=== PATIENT | female | born 1950 | race Caucasian/White ===

== ENCOUNTER 2022-11-14 13:28 | Outpatient (OUT) | payer MEDICARE, OTHER, SELFPAY | END 2022-11-14 13:29 | LOC: WC 13:29 | PROVIDERS: PCP Family Medicine; Visit Provider Physician Assistant | DX: L97.912 Non-pressure chronic ulcer of unspecified part of right lower leg with fat layer exposed (principal); L97.822 Non-pressure chronic ulcer of other part of left lower leg with fat layer exposed | CPT/HCPCS: 99213; G0463 ==

== ENCOUNTER 2022-11-16 08:40 | Day surgery (SDC) | payer MEDICARE, OTHER, SELFPAY ==
--- NOTE | 2022-11-16 08:48 | FL_ITS ---
[address] [address] Patient Name: TIGIST MARCIAL MRN: [id number] date: 1950 Sex: F Assigned Patient Location: [place] Current Patient Location: Accession/Order Number: [id number] Exam Date: 11/16/2022 09:30 Report Date: 11/16/2022 11:11 At the request of: AVE MEHTA Procedure: FL hip inj LT EXAMINATION: FL hip inj LT HISTORY: L HIP PAIN COMPARISON: No relevant comparison available. TECHNIQUE: An arthrogram was performed under fluoroscopic guidance using non-ionic contrast material in the usual sterile manner after obtaining informed consent. Standard level fluoroscopic mode of operation utilized. FINDINGS: JOINT: Left hip NEEDLE: 25 gauge, 4.5 spinal needle. MEDICATION: 2 mL buffered 1% lidocaine for subcutaneous anesthesia. 2 mL Omnipaque-300 iodinated contrast to visualize the joint space. 40 mg Kenalog, 2 mL 0.5% bupivacaine, 3 mL Omnipaque 300 injected into the joint space. TECHNIQUE: Anterior approach with prior localization of the femoral artery. A single stick was successful in gaining access to the joint space. CLINICAL: Improvement of joint pain post injection. COMPLICATIONS: None. OTHER: Negative. IMPRESSION: 1. Successful left hip injection with slight intermediate improvement of left hip pain following injection. Electronically authenticated by: MARINO FERNANDEZ Date: 11/16/2022 11:11
[2022-11-16 09:00] VITALS: BMI 209250.4
--- NOTE | 2022-11-16 10:58 | PC.NURSE ---
Unable to use patient for consent for procedure. Sister Ellen Bro called and consent obtained by phone.
[2022-11-16] MEDS: LIDOCAINE HCL 10 ML, SODIUM BICARBONATE 1 MEQ INJ (11:05)
[2022-11-16] MEDS: TRIAMCINOLONE ACETONIDE 40 MG/ML VIAL INJ (11:06)
[2022-11-16] MEDS: BUPIVACAINE HCL 0.25% PF 25 MG/10 ML VIAL 2 ML INJ (11:06)
== END 2022-11-16 10:15 | disposition home or self-care (01) ==
LOC: FL 08:42
PROVIDERS: Radiology Diagnostic Radiology; PCP Family Medicine; Visit Provider Family Medicine
DX: M25.552 Pain in left hip (principal)
CPT/HCPCS: 20610; 77002; Q9967

== ENCOUNTER 2022-12-12 10:12 | Outpatient (OUT) | payer MEDICARE, OTHER, SELFPAY ==
--- NOTE | 2022-12-12 12:03 | P.CN_ITS ---
Consult Note: HPI Data of Consult Patient: new to practice Consult date: 12/12/22 Requesting Physician: Kelsi Bradford MD Primary Care Provider: Benjamín Navarrete MD Consult Narrative Reason for consult: low back, bilateral lower extremity pain Narrative: this is a pleasant 72-year-old female who presents for evaluation. She has increasing pain thhroughout her low back that radiates into the bilateral lower extremities. This pain as been ongoing for several years, but continues to worsen. She has difficulty ambulating. She is currently at a care facility and is taking several medications, including Percocet, tramadol, baclofen, tizanidine, and Klonopin. There is nno recent lumbar spine imaging available for review. She undergoes therapy type exercises at her care facility, but these did not provide relief of her pain. She otherwise denies adverse medication side effects or loss of bowel or bladder control. cc:: CC: Kelsi Bradford MD Review of Systems ROS0 Status of ROS 10 or more systems reviewed and unremarkable except as noted in history and below [facility] Medical History Surgical History Meds Home Medications and Allergies Home Medications Medication Instructions Recorded Confirmed Type apixaban 5 mg tablet (Eliquis) 5 mg PO BID 11/15/22 12/12/22 History aspirin 81 mg capsule 81 mg PO DAILY 11/15/22 12/12/22 History atorvastatin 10 mg tablet 10 mg PO DAILY 11/15/22 12/12/22 History baclofen 10 mg tablet 10 mg PO DAILY 11/15/22 12/12/22 History bupropion HCl 150 mg 24 hr tablet, 150 mg PO DAILY 11/15/22 12/12/22 History extended release carvedilol 25 mg tablet (Coreg) 25 mg PO BID 11/15/22 12/12/22 History clonazepam 0.5 mg tablet 0.5 mg PO BID 11/15/22 12/12/22 History dapagliflozin 10 mg tablet 10 mg PO DAILY 11/15/22 12/12/22 History (Farxiga) escitalopram oxalate 10 mg tablet 10 mg PO DAILY 11/15/22 12/12/22 History (Lexapro) ferrous sulfate 325 mg (65 mg 325 mg PO DAILY 11/15/22 12/12/22 History iron) tablet (Feosol) furosemide 40 mg tablet 40 mg PO DAILY 11/15/22 12/12/22 History lamotrigine 150 mg tablet 150 mg PO DAILY 11/15/22 12/12/22 History losartan 25 mg tablet 25 mg PO DAILY 11/15/22 12/12/22 History multivitamin with iron 1 tab PO DAILY 11/15/22 12/12/22 History olanzapine 10 mg tablet 10 mg PO QPM 11/15/22 12/12/22 History pantoprazole 40 mg tablet,delayed 40 mg PO DAILY 11/15/22 12/12/22 History release polyethylene glycol 3350 17 gram 17 g PO DAILY laxative 11/15/22 12/12/22 History oral powder packet (Miralax) potassium chloride 10 mEq 10 meq PO BID 11/15/22 12/12/22 History tablet,extended release prostat max 30 ml PO DAILY 11/15/22 12/12/22 History spironolactone 25 mg tablet 25 mg PO DAILY 11/15/22 12/12/22 History tamsulosin 0.4 mg capsule 0.4 mg PO DAILY 11/15/22 12/12/22 History tizanidine 8 mg PO BEDTIME 11/15/22 12/12/22 History baclofen 20 mg tablet 20 mg PO DAILY 11/16/22 12/12/22 History clonazepam 0.5 mg PO BEDTIME 11/16/22 12/12/22 History collagenase clostridium histo. 250 1 applic topical BID 11/16/22 12/12/22 History unit/gram topical ointment (Santyl) oxycodone-acetaminophen 5 mg-325 1 tab PO Q8H PRN pain 11/16/22 12/12/22 History mg tablet dextromethorphan-guaifenesin 10 10 ml PO Q4H PRN cough 12/12/22 12/12/22 History mg-100 mg/5 mL oral liquid (Adult Tussin Cough Congestion DM) tramadol 50 mg tablet 50 mg PO TID PRN pain 12/12/22 12/12/22 History Allergies Allergy/AdvReac Type Severity Reaction Status Date / Time No Known Drug Allergies Allergy Verified 11/15/22 15:27 Exam Constitutional Common normals: no apparent distress, oriented x3 and healthy appearing Respiratory Common normals: normal respiratory effort Effort & inspection: able to speak in complete sentences Back & Pelvis Other: tenderness to palpation throughout the bilateral lumbar spine and paraspinal musculature. Pain is elicited with flexion, extension, and lateral rotation of the lumbar spine. Facet loading maneuvers are positive bilaterally. Coordination remains intact. Gait remains antalgic. Extremity Common normals: normal to inspection Neuro Common normals: oriented x3, CN's II-XII intact bilaterally and no focal motor deficits Psych Common normals: mental status grossly normal and cooperative Assessment and Plan Assessment and Plan (1) Lumbar spondylosis: (2) Sacroiliac dysfunction: Plan this is a pleasant 72-year-old female who presents for evaluation. She has persistence of pain throughout her low back that radiates into the bilateral lower extremities. At this point, I would like her to undergo an x-ray of the lumbar spine and sacrum to assure that there is no underlying fracture. She and her sister are in agreement with this plan. Medications were reviewed. I am worried that her multiple medications are causing her confusion, but she and her sister are very hesitant to stop any medications. I advised that she should scale back the Percocet from 10 mg every six hours to 5 mg every eight hours as needed. I will also have her trial a few trans-patch 5 ?g per hour, which may provide more steady relief. She is in agreement with this plan. She will follow- up after the x-rays are complete.
== END 2022-12-12 10:13 | disposition home or self-care (01) ==
LOC: PM 10:12
PROVIDERS: PCP Family Medicine; Visit Provider Anesthesiology Pain Medicine
DX: M47.816 Spondylosis without myelopathy or radiculopathy, lumbar region (principal); M53.3 Sacrococcygeal disorders, not elsewhere classified
CPT/HCPCS: 72110; G0463

== ENCOUNTER 2022-12-12 11:37 | Outpatient (OUT) | payer MEDICARE, OTHER, SELFPAY ==
--- NOTE | 2022-12-12 11:42 | XR_ITS ---
The [address] [address] Patient Name: TIGIST MARCIAL MRN: [id number] date: 1950 Sex: F Assigned Patient Location: [facility] Current Patient Location: [facility] Accession/Order Number: [id number] Exam Date: 12/12/2022 11:45 Report Date: 12/12/2022 13:08 At the request of: FILIBERTO MERCER Procedure: XR lumbar spine min 4V EXAMINATION: XR lumbar spine min 4V HISTORY: Lumbar spondylosis, sacroilical joint pain COMPARISON: XR hips bilateral with pelvis 04/14/2021, CT L-spine 01/10/2020 FINDINGS: BONES: 11 mm anterior listhesis of L4 on 5, likely secondary to bilateral pars interarticularis defects or fractures. Moderate degenerative facet arthropathy L3-4 through L5-S1. Prominent sclerosis involving the left sacral ala / sacroiliac joint. DISC SPACES: Moderate narrowing L4-5. Mild narrowing L5-S1. PARASPINOUS: Negative. No paraspinous abnormality is seen. OTHER: Negative. IMPRESSION: 1. Grade 2 anterior listhesis of L4 on 5 which is new compared to 01/10/2020 suggesting traumatic injury during the interval, since no pars defects or visible prior CT study. 2. Sclerotic appearance of the left sacral ala which may be secondary to sacroiliitis, but I suspect prior fracture of the sacrum. No appreciable abnormality on the 01/10/2020 CT, but sclerotic appearance was present on 04/14/2021. 3. Moderate degenerative disc disease L4-5. Multilevel moderate degenerative facet arthropathy. Electronically authenticated by: MARINO FERNANDEZ Date: 12/12/2022 13:08
== END 2022-12-12 11:38 | disposition home or self-care (01) ==
LOC: RAD 11:39
PROVIDERS: PCP Family Medicine; Visit Provider Anesthesiology
DX: M47.816 Spondylosis without myelopathy or radiculopathy, lumbar region (principal); M53.3 Sacrococcygeal disorders, not elsewhere classified
CPT/HCPCS: 72110

== ENCOUNTER 2022-12-19 07:41 | Outpatient (OUT) | payer MEDICARE, OTHER, SELFPAY ==
[2022-12-19 13:20] VITALS: BP 111/64; PULSE 66; RESP 20; TEMP 36.6; O2SAT 94
[2022-12-19 13:28] LABS: Calcium 9.8 mg/dL (8.5-10.1); Estimated GFR (African America 27 (>=60); Estimated GFR (Non-African Ame 23 (>=60)
[2022-12-19] MEDS: DENOSUMAB 60 MG/ML SYRINGE SUBQ (13:38)
--- NOTE | 2022-12-19 13:41 | PC.NURSE ---
Patient is here for Prolia injection, she had bloodwork done, she states she has previously received these without complication. Patient tolerated injection well and denies any complaints. Pt was discharged to the [place].
== END 2022-12-19 07:42 | disposition home or self-care (01) ==
LOC: LAB 07:42
PROVIDERS: PCP Family Medicine; Visit Provider Family Medicine
DX: M81.0 Age-related osteoporosis without current pathological fracture (principal)
CPT/HCPCS: 36415; 82310; 82565; 96372; J0897

== ENCOUNTER 2022-12-19 11:20 | Outpatient (OUT) | payer MEDICARE, OTHER, SELFPAY | END 2022-12-19 11:21 | disposition home or self-care (01) | LOC: WC 11:21 | PROVIDERS: PCP Family Medicine; Visit Provider Physician Assistant | DX: L97.912 Non-pressure chronic ulcer of unspecified part of right lower leg with fat layer exposed (principal); M81.0 Age-related osteoporosis without current pathological fracture | CPT/HCPCS: 36415; 82310; 82565; 96372; A6213; G0463; J0897 ==

== ENCOUNTER 2023-01-09 13:06 | Outpatient (OUT) | payer MEDICARE, OTHER, SELFPAY ==
--- NOTE | 2023-01-09 14:35 | P.CN_ITS ---
Consult Note: HPI Data of Consult Patient: known to practice within the last 3 years Consult date: 01/09/23 Requesting Physician: Ирина Gibson MD Primary Care Provider: Benjamín Navarrete MD Consult Narrative Reason for consult: low-back pain Narrative: this is a pleasant 72-year-old female who presents for system. She has persistence of axial low back pain that is worsened with standing and ambulation. She recently underwent lumbar imaging, which is significant for moderate facet arthropathy throughout the lower lumbar spine. She continues in a series of provider directed home exercises, which she has attempted for greater than three months. She did note some relief with her butrans patch 5 ?g per hour. She states that the Percocet is not helping much anymore. She has tried these medications for >3 months. She otherwise denies errors medication side effects or loss of bowel or bladder control. cc:: CC: Ирина Gibson MD Review of Systems ROS Status of ROS 10 or more systems reviewed and unremarkable except as noted in history and below [facility] Medical History Surgical History Meds Home Medications and Allergies Home Medications Medication Instructions Recorded Confirmed Type apixaban 5 mg tablet (Eliquis) 5 mg PO BID 11/15/22 12/12/22 History aspirin 81 mg capsule 81 mg PO DAILY 11/15/22 12/12/22 History atorvastatin 10 mg tablet 10 mg PO DAILY 11/15/22 12/12/22 History baclofen 10 mg tablet 10 mg PO DAILY 11/15/22 12/12/22 History bupropion HCl 150 mg 24 hr tablet, 150 mg PO DAILY 11/15/22 12/12/22 History extended release carvedilol 25 mg tablet (Coreg) 25 mg PO BID 11/15/22 12/12/22 History clonazepam 0.5 mg tablet 0.5 mg PO BID 11/15/22 12/12/22 History dapagliflozin propanediol 10 mg 10 mg PO DAILY 11/15/22 12/12/22 History tablet (Farxiga) escitalopram oxalate 10 mg tablet 10 mg PO DAILY 11/15/22 12/12/22 History (Lexapro) ferrous sulfate 325 mg (65 mg 325 mg PO DAILY 11/15/22 12/12/22 History iron) tablet (Feosol) furosemide 40 mg tablet 40 mg PO DAILY 11/15/22 12/12/22 History lamotrigine 150 mg tablet 150 mg PO DAILY 11/15/22 12/12/22 History losartan 25 mg tablet 25 mg PO DAILY 11/15/22 12/12/22 History multivitamin with iron 1 tab PO DAILY 11/15/22 12/12/22 History olanzapine 10 mg tablet 10 mg PO QPM 11/15/22 12/12/22 History pantoprazole 40 mg tablet,delayed 40 mg PO DAILY 11/15/22 12/12/22 History release polyethylene glycol 3350 17 gram 17 g PO DAILY laxative 11/15/22 12/12/22 History oral powder packet (Miralax) potassium chloride 10 mEq 10 meq PO BID 11/15/22 12/12/22 History tablet,extended release prostat max 30 ml PO DAILY 11/15/22 12/12/22 History spironolactone 25 mg tablet 25 mg PO DAILY 11/15/22 12/12/22 History tamsulosin 0.4 mg capsule 0.4 mg PO DAILY 11/15/22 12/12/22 History tizanidine 8 mg PO BEDTIME 11/15/22 12/12/22 History baclofen 20 mg tablet 20 mg PO DAILY 11/16/22 12/12/22 History clonazepam 0.5 mg PO BEDTIME 11/16/22 12/12/22 History collagenase clostridium histo. 250 1 applic topical BID 11/16/22 12/12/22 History unit/gram topical ointment (Santyl) oxycodone-acetaminophen 5 mg-325 1 tab PO Q8H PRN pain 11/16/22 12/12/22 History mg tablet dextromethorphan-guaifenesin 10 10 ml PO Q4H PRN cough 12/12/22 12/12/22 History mg-100 mg/5 mL oral liquid (Adult Tussin Cough Congestion DM) tramadol 50 mg tablet 50 mg PO TID PRN pain 12/12/22 12/12/22 History Allergies Allergy/AdvReac Type Severity Reaction Status Date / Time No Known Drug Allergies Allergy Verified 11/15/22 15:27 Exam Constitutional Common normals: no apparent distress, oriented x3 and healthy appearing Respiratory Common normals: normal respiratory effort Effort & inspection: able to speak in complete sentences Back & Pelvis Other: tenderness to palpation throughout the lumbar spine and paraspinal musculature. Pain is elicited with flexion, extension, and lateral rotation of the lumbar spine. Facet loading maneuvers are positive bilaterally. Coordination remains intact. Gait remains mildly antalgic. Extremity Common normals: normal to inspection Neuro Common normals: oriented x3, CN's II-XII intact bilaterally and no focal motor deficits Psych Common normals: mental status grossly normal and cooperative Assessment and Plan Assessment and Plan (1) Lumbar spondylosis: (2) Sacroiliac dysfunction: Plan this is a pleasant 72-year-old female who presents for assessment. She has failed physical and medical modalities, as listed above. Her lumbar imaging was reviewed, as noted above. Given her symptomatology and imaging findings, it is prudent to attempt diagnostic bilateral L4-L5, L5-L1 medial branch blocks under fluoroscopic guidance with the intention of proceeding to radiofrequency ablation. She is in agreement with this plan. Medications were reviewed. I will have her discontinue Percocet. We'll change her to [place] 7.5 mg 3 times a day when necessary, as well as a butrans patch 7.5 ?g per hour. She expressed understanding. She will follow-up after the procedure is completed.
== END 2023-01-09 13:07 | disposition home or self-care (01) ==
PROVIDERS: PCP Family Medicine; Visit Provider Anesthesiology
DX: M47.816 Spondylosis without myelopathy or radiculopathy, lumbar region (principal); M53.3 Sacrococcygeal disorders, not elsewhere classified
CPT/HCPCS: G0463

== ENCOUNTER 2023-01-23 11:30 | Day surgery (SDC) | payer MEDICARE, OTHER, SELFPAY ==
[2023-01-23 11:01] VITALS: BP 145/87; PULSE 63; RESP 20; TEMP 36.3; O2SAT 94
[2023-01-23] MEDS: BUPIVACAINE HCL 0.25% PF 25 MG/10 ML VIAL INJ (11:31)
[2023-01-23] MEDS: LIDOCAINE HCL 2% PF 100 MG/5 ML VIAL INJ (11:31)
--- NOTE | 2023-01-23 11:31 | W.PM.PROCNOT ---
Date of procedure: 01/23/23 Pre-op diagnosis: Lumbar spondylosis Post-op diagnosis: same as pre-op Procedure: Procedure: Bilateral L4-5, L5-S1 medial branch block Medications: Bupivacaine 0.25% 4cc The patient was seen and examined in the preoperative holding area.? An informed consent was obtained and placed on the chart.? The patient was brought to the medical procedure unit and placed in the prone position.? A timeout was completed verifying correct patient, procedure site, positioning, plan, and special equipment.? Using aseptic technique, the needle was placed at left L4. Under direct fluoroscopic visualization a Quincke-tipped spinal needle was advanced to the junction of the superior articulating process with the transverse process at the designated medial branch segment.? Preceded by negative aspiration, the above-mentioned injectate was placed in 1 mL aliquots.? The procedure was repeated at left L5, S1.? The needle was removed and insertion site was covered. The same procedure, at the same levels, was completed on the right side. The patient was taken to the postprocedural recovery area and monitored for an appropriate length of time before found suitable for discharge in the company of a responsible adult. Anesthesia: None Surgeon: Ирина Gibson Pathology: none sent Condition: stable Disposition: no change
[2023-01-23] MEDS: TRIAMCINOLONE ACETONIDE 40 MG/ML VIAL INJ (11:32)
[2023-01-23 14:44] VITALS: BP 161/70; BP 161/80; PULSE 61; PULSE 68; RESP 16; RESP 20; O2SAT 92; O2SAT 95
== END 2023-01-23 11:41 | disposition home or self-care (01) ==
LOC: SURGOUT 01-24 08:23
PROVIDERS: PCP Family Medicine; Visit Provider Anesthesiology
DX: M47.816 Spondylosis without myelopathy or radiculopathy, lumbar region (principal)
CPT/HCPCS: 64493; 64494

== ENCOUNTER 2023-01-30 11:29 | Outpatient (OUT) | payer MEDICARE, OTHER, SELFPAY | END 2023-01-30 11:30 | disposition home or self-care (01) | LOC: WC 11:30 | PROVIDERS: PCP Family Medicine; Visit Provider Physician Assistant | DX: L97.912 Non-pressure chronic ulcer of unspecified part of right lower leg with fat layer exposed (principal); L97.822 Non-pressure chronic ulcer of other part of left lower leg with fat layer exposed | CPT/HCPCS: G0463 ==

== ENCOUNTER 2023-02-09 10:00 | Outpatient (OUT) | payer MEDICARE, OTHER, SELFPAY ==
--- NOTE | 2023-02-09 10:26 | PM.CN ---
Consult Note: HPI Data of Consult Patient: known to practice within the last 3 years Requesting Physician: Josephine Devine NP Primary Care Provider: Benjamín Navarrete MD Consult Narrative Narrative: Linda Nascimento a 72 year old female presents to office for evaluation of chronic low back pain that has failed to respond well to medication therapy. The patient had significant relief of over 80%, with increased range of motion, decreased pain with provocative maneuvers, and increased ability to perform ADLs after diagnostic bilateral L4/5 L5/S1 block 1.??Sister present for today's visit. cc:: CC: Josephine Devine NP Review of Systems ROS Status of ROS 10 or more systems reviewed and unremarkable except as noted in history and below Musculoskeletal Reports: back pain and joint pain (bilateral knees) PFSH PFSH Medical History Surgical History Meds Home Medications and Allergies Home Medications Medication Instructions Recorded Confirmed Type apixaban 5 mg tablet (Eliquis) 5 mg PO BID 11/15/22 01/23/23 History aspirin 81 mg capsule 81 mg PO DAILY 11/15/22 01/23/23 History atorvastatin 10 mg tablet 10 mg PO DAILY 11/15/22 01/23/23 History baclofen 10 mg tablet 10 mg PO DAILY 11/15/22 01/23/23 History bupropion HCl 150 mg 24 hr tablet, 150 mg PO DAILY 11/15/22 01/23/23 History extended release carvedilol 25 mg tablet (Coreg) 25 mg PO BID 11/15/22 01/23/23 History clonazepam 0.5 mg tablet 0.5 mg PO BID 11/15/22 01/23/23 History dapagliflozin propanediol 10 mg 10 mg PO DAILY 11/15/22 01/23/23 History tablet (Farxiga) escitalopram oxalate 10 mg tablet 10 mg PO DAILY 11/15/22 01/23/23 History (Lexapro) ferrous sulfate 325 mg (65 mg 325 mg PO DAILY 11/15/22 01/23/23 History iron) tablet (Feosol) furosemide 40 mg tablet 40 mg PO DAILY 11/15/22 01/23/23 History lamotrigine 150 mg tablet 150 mg PO DAILY 11/15/22 01/23/23 History losartan 25 mg tablet 25 mg PO DAILY 11/15/22 01/23/23 History multivitamin with iron 1 tab PO DAILY 11/15/22 01/23/23 History olanzapine 10 mg tablet 10 mg PO QPM 11/15/22 01/23/23 History pantoprazole 40 mg tablet,delayed 40 mg PO DAILY 11/15/22 01/23/23 History release polyethylene glycol 3350 17 gram 17 g PO DAILY laxative 11/15/22 01/23/23 History oral powder packet (Miralax) potassium chloride 10 mEq 10 meq PO BID 11/15/22 01/23/23 History tablet,extended release prostat max 30 ml PO DAILY 11/15/22 01/23/23 History spironolactone 25 mg tablet 25 mg PO DAILY 11/15/22 01/23/23 History tamsulosin 0.4 mg capsule 0.4 mg PO DAILY 11/15/22 01/23/23 History tizanidine 8 mg PO BEDTIME 11/15/22 01/23/23 History baclofen 20 mg tablet 20 mg PO DAILY 11/16/22 01/23/23 History clonazepam 0.5 mg PO BEDTIME 11/16/22 01/23/23 History collagenase clostridium histo. 250 1 applic topical BID 11/16/22 01/23/23 History unit/gram topical ointment (Santyl) dextromethorphan-guaifenesin 10 10 ml PO Q4H PRN cough 12/12/22 01/23/23 History mg-100 mg/5 mL oral liquid (Adult Tussin Cough Congestion DM) tramadol 50 mg tablet 50 mg PO TID PRN pain 12/12/22 01/23/23 History buprenorphine 7.5 mcg/hour weekly 1 patch transdermal Q7D 01/10/23 01/23/23 History transdermal patch (Butrans) hydrocodone 7.5 mg-acetaminophen 1 tab PO TID 01/10/23 01/23/23 History 325 mg tablet Allergies Allergy/AdvReac Type Severity Reaction Status Date / Time No Known Drug Allergies Allergy Verified 11/15/22 15:27 Exam Constitutional Documenting provider has reviewed patient's vital signs: yes Common normals: no apparent distress, oriented x3, healthy appearing, alert and well nourished General appearance: cooperative Nutritional appearance: obese HENMT Common normals: normocephalic, hearing grossly normal bilaterally and moist oral mucous membranes Head and scalp: normocephalic Eye Common normals: PERRL Pupil: PERRL Neck & C-Spine Common normals: full ROM General: normal visual inspection Chest Common normals: inspection of chest normal Respiratory Common normals: normal respiratory effort, no retractions and no use of accessory muscles Back & Pelvis Lumbar spine/lower back: ROM limited, pain with ROM and straight leg raise negative bilaterally Other: predominately axial low back pain without radiculopathy Extremity Right lower extremity: knee joint (pain with weight bearing and ROM) Left lower extremity: knee joint (pain with weight bearing and ROM) Other: limited ROM due to size Neuro Common normals: oriented x3, CN's II-XII intact bilaterally, moves all extremities, no focal motor deficits, no sensory deficits noted and deep tendon reflexes 2+ bilaterally Sensorium/orientation: alert Gait (neuro): unable to assess gait and assistive device used other (wheelchair) Motor exam: no movement abnormalities noted and strength abnormal (weak BUE BLE 3/5) Psych Common normals: mental status grossly normal, thought process normal, cooperative, affect normal, speech normal and activity/motor behavior normal Speech: normal speech Thought process: normal thought process Results Additional Findings Additional findings: As part of providing excellent, safe, comprehensive care, the following was completed at our patient's visit: 1. A medication reconciliation and review to ensure accurate knowledge of current/active medications, including asking our patients to inform us about any [id number] medications or herbal remedies/nutritional supplements/alternative remedies. 2. A review to specifically ensure our patients have had annual screening for: elevated body mass index (BMI), tobacco use, screening for depression, and screening for unhealthy alcohol use. When screening is concerning, patients are provided with education and the specific recommendation to discuss the concerning health issue and treatment options with their primary care provider. The patient has had over 3 months of moderate to severe low back pain with functional impairment and inadequate response to conservative care including NSAIDS (unless there are contraindication such as concurrent blood thinners), multiple oral or topical pain medications, and home exercise program/physical therapy.? Patient has completed >6 weeks of guided home exercise program and/or formal physical therapy program without relief of their symptoms.? The Oswestry Disability Index was completed, and the patient scored a 38%.? The patient noted the following:?? severe pain, pain with ADLs, pain with lifting, cannot walk, pain prevents her from sitting more than a half hour, pain prevents her from standing more than 10 minutes, We discussed the risks and benefits of the procedure with the patient. ?The procedure will be completed with fluoroscopic guidance.? Assessment and Plan Assessment and Plan (1) Lumbar spondylosis: (2) Sacroiliac dysfunction: (3) Obesity: Assessment and Plan: The patient was counseled that proper dietary changes and consistent participation in a home exercise plan can lead to weight loss. Weight loss can help to improve functionality in patients with chronic pain.? (4) Bilateral knee pain: (5) Chronic anticoagulation: Plan proceed with bilateral L4/5 L5/s1 MBB #2 under fluoroscpoy working towards thermal RFA f/u after injection
== END 2023-02-09 10:01 | disposition home or self-care (01) ==
LOC: PM 10:00
PROVIDERS: PCP Family Medicine; Visit Provider Nurse Practitioner
DX: M47.816 Spondylosis without myelopathy or radiculopathy, lumbar region (principal); E66.9 Obesity, unspecified; M53.3 Sacrococcygeal disorders, not elsewhere classified; Z79.01 Long term (current) use of anticoagulants; M25.561 Pain in right knee; M25.562 Pain in left knee
CPT/HCPCS: G0463

== ENCOUNTER 2023-03-20 11:20 | Day surgery (SDC) | payer MEDICARE, OTHER, SELFPAY ==
[2023-03-20 11:53] VITALS: BP 195/89; PULSE 91; RESP 14; TEMP 36.6; O2SAT 95
[2023-03-20 12:25] VITALS: BP 204/91; PULSE 89; RESP 16; O2SAT 91
[2023-03-20] MEDS: TRIAMCINOLONE ACETONIDE 40 MG/ML VIAL INJ (12:27)
[2023-03-20] MEDS: LIDOCAINE HCL 2% PF 100 MG/5 ML VIAL INJ (12:27)
[2023-03-20] MEDS: BUPIVACAINE HCL 0.5% PF 50 MG/10 ML VIAL 4 ML INJ (12:27)
[2023-03-20 12:28] VITALS: BP 211/96; PULSE 60; RESP 18; O2SAT 97
--- NOTE | 2023-03-20 12:29 | W.PM.PROCNOT ---
Date of procedure: 03/20/23 Pre-op diagnosis: Lumbosacral spondylosis Post-op diagnosis: same as pre-op Procedure: Procedure: Bilateral L4-5, L5-S1 medial branch block Medications: Bupivacaine 0.25% 4cc The patient was seen and examined in the preoperative holding area.? An informed consent was obtained and placed on the chart.? The patient was brought to the medical procedure unit and placed in the prone position.? A timeout was completed verifying correct patient, procedure site, positioning, plan, and special equipment.? Using aseptic technique, the needle was placed at left L4. Under direct fluoroscopic visualization a Quincke-tipped spinal needle was advanced to the junction of the superior articulating process with the transverse process at the designated medial branch segment.? Preceded by negative aspiration, the above-mentioned injectate was placed in 1 mL aliquots.? The procedure was repeated at left L5, S1.? The needle was removed and insertion site was covered. The same procedure, at the same levels, was completed on the right side. The patient was taken to the postprocedural recovery area and monitored for an appropriate length of time before found suitable for discharge in the company of a responsible adult. Anesthesia: Local Surgeon: Ирина Gibson Pathology: none sent Condition: stable Disposition: no change
== END 2023-03-20 12:38 | disposition home or self-care (01) ==
PROVIDERS: PCP Family Medicine; Visit Provider Anesthesiology
DX: M47.816 Spondylosis without myelopathy or radiculopathy, lumbar region (principal)
CPT/HCPCS: 64493; 64494

== ENCOUNTER 2023-03-29 10:24 | Outpatient (OUT) | payer MEDICARE, OTHER, SELFPAY ==
--- NOTE | 2023-03-29 10:43 | PM.CN ---
Consult Note: HPI Data of Consult Patient: known to practice within the last 3 years Requesting Physician: Josephine Devine NP Primary Care Provider: Benjamín Navarrete MD Consult Narrative Narrative: Linda Nascimento a 72 year old female presents to office for evaluation of chronic low back pain that has failed to respond well to medication therapy. The patient had 0% pain relief after L4-5 L5-s1 MBB #2.??Sister present for today's visit. cc:: CC: Josephine Devine NP Review of Systems ROS Status of ROS 10 or more systems reviewed and unremarkable except as noted in history and below Musculoskeletal Reports: back pain PFSH PFSH Medical History Anemia ?D64.9 - Anemia, unspecified (ICD-10) Arthritis ?M19.90 - Unspecified osteoarthritis, unspecified site (ICD-10) Bipolar 1 disorder, manic, mild ?F31.11 - Bipolar disorder, current episode manic without psychotic features, mild (ICD-10) CKD (chronic kidney disease) stage 2, GFR 60-89 ml/min ?N18.2 - Chronic kidney disease, stage 2 (mild) (ICD-10) GERD (gastroesophageal reflux disease) ?K21.9 - Gastro-esophageal reflux disease without esophagitis (ICD-10) Hematoma of lower leg ?S80.10XA - Contusion of unspecified lower leg, initial encounter (ICD-10) HTN (hypertension) ?I10 - Essential (primary) hypertension (ICD-10) Myocardial infarction ?I21.9 - Acute myocardial infarction, unspecified (ICD-10) Normal colonoscopy Pacemaker ?Z95.0 - Presence of cardiac pacemaker (ICD-10) Paroxysmal A-fib ?I48.0 - Paroxysmal atrial fibrillation (ICD-10) Sarcoidosis ?D86.9 - Sarcoidosis, unspecified (ICD-10) Seizures ?R56.9 - Unspecified convulsions (ICD-10) Shock therapy as the cause of abnormal reaction of patient or of later complication without misadventure at time of procedure ?Y84.3 - Shock therapy as the cause of abnormal reaction of the patient, or of later complication, without mention of misadventure at the time of the procedure (ICD-10) Vitamin D deficiency ?E55.9 - Vitamin D deficiency, unspecified (ICD-10) Surgical History H/O exploratory laparotomy ?Z98.890 - Other specified postprocedural states (ICD-10) Hx of tonsillectomy ?Z90.89 - Acquired absence of other organs (ICD-10) Meds Home Medications and Allergies Home Medications Medication Instructions Recorded Confirmed Type apixaban 5 mg tablet (Eliquis) 5 mg PO BID 11/15/22 03/20/23 History aspirin 81 mg capsule 81 mg PO DAILY 11/15/22 03/20/23 History atorvastatin 10 mg tablet 10 mg PO DAILY 11/15/22 01/23/23 History baclofen 10 mg tablet 10 mg PO DAILY 11/15/22 03/20/23 History bupropion HCl 150 mg 24 hr tablet, 150 mg PO DAILY 11/15/22 03/20/23 History extended release carvedilol 25 mg tablet (Coreg) 25 mg PO BID 11/15/22 03/20/23 History clonazepam 0.5 mg tablet 0.5 mg PO BID 11/15/22 03/20/23 History dapagliflozin propanediol 10 mg 10 mg PO DAILY 11/15/22 03/20/23 History tablet (Farxiga) escitalopram oxalate 10 mg tablet 10 mg PO DAILY 11/15/22 03/20/23 History (Lexapro) ferrous sulfate 325 mg (65 mg 325 mg PO DAILY 11/15/22 03/20/23 History iron) tablet (Feosol) furosemide 40 mg tablet 40 mg PO DAILY 11/15/22 03/20/23 History lamotrigine 150 mg tablet 150 mg PO DAILY 11/15/22 03/20/23 History losartan 25 mg tablet 25 mg PO DAILY 11/15/22 03/20/23 History multivitamin with iron 1 tab PO DAILY 11/15/22 03/20/23 History olanzapine 10 mg tablet 10 mg PO QPM 11/15/22 03/20/23 History pantoprazole 40 mg tablet,delayed 40 mg PO DAILY 11/15/22 03/20/23 History release polyethylene glycol 3350 17 gram 17 g PO DAILY laxative 11/15/22 03/20/23 History oral powder packet (Miralax) potassium chloride 10 mEq 10 meq PO BID 11/15/22 03/20/23 History tablet,extended release prostat max 30 ml PO DAILY 11/15/22 03/20/23 History spironolactone 25 mg tablet 25 mg PO DAILY 11/15/22 03/20/23 History tamsulosin 0.4 mg capsule 0.4 mg PO DAILY 11/15/22 03/20/23 History tizanidine 8 mg PO BEDTIME 11/15/22 03/20/23 History baclofen 20 mg tablet 20 mg PO DAILY 11/16/22 03/20/23 History clonazepam 0.5 mg PO BEDTIME 11/16/22 03/20/23 History collagenase clostridium histo. 250 1 applic topical BID 11/16/22 01/23/23 History unit/gram topical ointment (Santyl) dextromethorphan-guaifenesin 10 10 ml PO Q4H PRN cough 12/12/22 03/20/23 History mg-100 mg/5 mL oral liquid (Adult Tussin Cough Congestion DM) tramadol 50 mg tablet 50 mg PO TID PRN pain 12/12/22 03/20/23 History buprenorphine 7.5 mcg/hour weekly 1 patch transdermal Q7D 01/10/23 01/23/23 History transdermal patch (Butrans) hydrocodone 7.5 mg-acetaminophen 1 tab PO TID 01/10/23 03/20/23 History 325 mg tablet Allergies Allergy/AdvReac Type Severity Reaction Status Date / Time No Known Drug Allergies Allergy Verified 11/15/22 15:27 Exam Constitutional Documenting provider has reviewed patient's vital signs: yes Common normals: no apparent distress, oriented x3, healthy appearing, alert and well nourished General appearance: cooperative Nutritional appearance: obese HENMT Common normals: normocephalic, hearing grossly normal bilaterally and moist oral mucous membranes Head and scalp: normocephalic Eye Common normals: PERRL Pupil: PERRL Neck & C-Spine Common normals: full ROM General: normal visual inspection Chest Common normals: inspection of chest normal Respiratory Common normals: normal respiratory effort, no retractions and no use of accessory muscles Back & Pelvis Lumbar spine/lower back: ROM limited, pain with ROM and straight leg raise positive left Other: predominately axial low back pain with radculopathy to left leg Extremity Right lower extremity: knee joint (pain with weight bearing and ROM) Left lower extremity: knee joint (pain with weight bearing and ROM) Other: limited ROM due to size Neuro Common normals: oriented x3, CN's II-XII intact bilaterally, moves all extremities, no focal motor deficits, no sensory deficits noted and deep tendon reflexes 2+ bilaterally Sensorium/orientation: alert Gait (neuro): unable to assess gait and assistive device used other (wheelchair) Motor exam: no movement abnormalities noted and strength abnormal (weak BUE BLE 3/5) Psych Common normals: mental status grossly normal, thought process normal, cooperative, affect normal, speech normal and activity/motor behavior normal Speech: normal speech Thought process: normal thought process Assessment and Plan Assessment and Plan (1) Lumbar spondylosis: (2) Sacroiliac dysfunction: (3) Obesity: (4) Bilateral knee pain: (5) Chronic anticoagulation: Plan declining additional injection therapy, consider advanced imaging in the future continue medication management through PCP f/u PRN
== END 2023-03-29 10:25 | disposition home or self-care (01) ==
LOC: PM 10:24
PROVIDERS: PCP Family Medicine; Visit Provider Nurse Practitioner
DX: M47.816 Spondylosis without myelopathy or radiculopathy, lumbar region (principal); M53.3 Sacrococcygeal disorders, not elsewhere classified; E66.9 Obesity, unspecified; M25.561 Pain in right knee; M25.562 Pain in left knee; Z79.01 Long term (current) use of anticoagulants
CPT/HCPCS: G0463

== ENCOUNTER 2023-10-09 15:45 | Outpatient (OUT) | payer MEDICARE, MEDICAID, SELFPAY | END 2023-10-09 15:46 | disposition home or self-care (01) | LOC: WC 15:45 | PROVIDERS: PCP Family Medicine; Visit Provider Physician Assistant | DX: I87.313 Chronic venous hypertension (idiopathic) with ulcer of bilateral lower extremity (principal); L97.822 Non-pressure chronic ulcer of other part of left lower leg with fat layer exposed; L97.812 Non-pressure chronic ulcer of other part of right lower leg with fat layer exposed | CPT/HCPCS: A6213; G0463 ==

== ENCOUNTER 2023-10-30 11:50 | Outpatient (OUT) | payer MEDICARE, MEDICAID, SELFPAY | END 2023-10-30 11:51 | disposition home or self-care (01) | LOC: WC 11:50 | PROVIDERS: PCP Family Medicine; Visit Provider Physician Assistant | DX: I87.313 Chronic venous hypertension (idiopathic) with ulcer of bilateral lower extremity (principal); L97.822 Non-pressure chronic ulcer of other part of left lower leg with fat layer exposed; L97.812 Non-pressure chronic ulcer of other part of right lower leg with fat layer exposed | CPT/HCPCS: A6213; G0463 ==

== ENCOUNTER 2023-11-20 16:36 | Outpatient (OUT) | payer MEDICARE, MEDICAID, SELFPAY | END 2023-11-20 16:37 | disposition home or self-care (01) | LOC: WC 16:36 | PROVIDERS: PCP Family Medicine; Visit Provider Physician Assistant | DX: I87.313 Chronic venous hypertension (idiopathic) with ulcer of bilateral lower extremity (principal); L97.822 Non-pressure chronic ulcer of other part of left lower leg with fat layer exposed; L97.812 Non-pressure chronic ulcer of other part of right lower leg with fat layer exposed; L97.811 Non-pressure chronic ulcer of other part of right lower leg limited to breakdown of skin | CPT/HCPCS: 11042; A6213 ==

== ENCOUNTER 2023-12-11 16:04 | Outpatient (OUT) | payer MEDICARE, MEDICAID, SELFPAY | END 2023-12-11 16:05 | disposition home or self-care (01) | LOC: WC 16:04 | PROVIDERS: PCP Family Medicine; Visit Provider Physician Assistant | DX: I87.311 Chronic venous hypertension (idiopathic) with ulcer of right lower extremity (principal); L97.822 Non-pressure chronic ulcer of other part of left lower leg with fat layer exposed | CPT/HCPCS: G0463 ==

== ENCOUNTER 2024-01-08 14:44 | Outpatient (OUT) | payer MEDICARE, MEDICAID, SELFPAY | END 2024-01-08 14:45 | disposition home or self-care (01) | LOC: WC 14:44 | PROVIDERS: PCP Family Medicine; Visit Provider Physician Assistant | DX: I87.313 Chronic venous hypertension (idiopathic) with ulcer of bilateral lower extremity (principal); L97.822 Non-pressure chronic ulcer of other part of left lower leg with fat layer exposed; L97.812 Non-pressure chronic ulcer of other part of right lower leg with fat layer exposed; L97.811 Non-pressure chronic ulcer of other part of right lower leg limited to breakdown of skin | CPT/HCPCS: G0463 ==

== ENCOUNTER 2024-01-29 14:22 | Outpatient (OUT) | payer MEDICARE, MEDICAID, SELFPAY | END 2024-01-29 14:23 | disposition home or self-care (01) | LOC: WC 14:22 | PROVIDERS: PCP Family Medicine; Visit Provider Physician Assistant | DX: I87.313 Chronic venous hypertension (idiopathic) with ulcer of bilateral lower extremity (principal); L97.822 Non-pressure chronic ulcer of other part of left lower leg with fat layer exposed; L97.812 Non-pressure chronic ulcer of other part of right lower leg with fat layer exposed; L97.811 Non-pressure chronic ulcer of other part of right lower leg limited to breakdown of skin; L97.818 Non-pressure chronic ulcer of other part of right lower leg with other specified severity | CPT/HCPCS: G0463 ==

== ENCOUNTER 2024-02-13 15:38 | Outpatient (OUT) | payer MEDICARE, MEDICAID, SELFPAY | END 2024-02-13 15:39 | disposition home or self-care (01) | LOC: WC 15:39 | PROVIDERS: PCP Family Medicine; Visit Provider Physician Assistant | DX: I87.313 Chronic venous hypertension (idiopathic) with ulcer of bilateral lower extremity (principal); L97.822 Non-pressure chronic ulcer of other part of left lower leg with fat layer exposed; L97.818 Non-pressure chronic ulcer of other part of right lower leg with other specified severity | CPT/HCPCS: G0463 ==

== ENCOUNTER 2024-03-04 13:52 | Outpatient (OUT) | payer MEDICARE, MEDICAID, SELFPAY | END 2024-03-04 13:53 | disposition home or self-care (01) | LOC: WC 13:52 | PROVIDERS: PCP Family Medicine; Visit Provider Physician Assistant | DX: I87.313 Chronic venous hypertension (idiopathic) with ulcer of bilateral lower extremity (principal); L97.822 Non-pressure chronic ulcer of other part of left lower leg with fat layer exposed; L97.818 Non-pressure chronic ulcer of other part of right lower leg with other specified severity | CPT/HCPCS: G0463 ==

== ENCOUNTER 2024-03-25 14:28 | Outpatient (OUT) | payer MEDICARE, MEDICAID, SELFPAY | END 2024-03-25 14:29 | disposition home or self-care (01) | LOC: WC 14:28 | PROVIDERS: PCP Family Medicine; Visit Provider Physician Assistant | DX: I87.313 Chronic venous hypertension (idiopathic) with ulcer of bilateral lower extremity (principal); L97.822 Non-pressure chronic ulcer of other part of left lower leg with fat layer exposed; L97.818 Non-pressure chronic ulcer of other part of right lower leg with other specified severity | CPT/HCPCS: A6213; G0463 ==

== ENCOUNTER 2024-04-02 10:37 | Outpatient (OUT) | payer MEDICARE, MEDICAID, SELFPAY ==
--- OUTSIDE RECORDS SUMMARY | 2024-04-02 10:45 | XMS_ITS | CCD ---
Author Organization [facility] Care Team Providers Care Bobtail Driver Name Role Phone ROBERTA VELA Admitting Unavailable RADHA ARROYOIR Referring Unavailable BILLY LOZADA Attending Unavailable AVE MEHTA Primary Care Unavailable Gunnar Fernandez Unavailable [place] Unavailable Emilie Perez Unavailable PROVIDER, UNKNOWN Admitting Unavailable PROVIDER, UNKNOWN Attending Unavailable Gunnar Fernandez Attending Unavailable Gunnar Fernandez Admitting Unavailable Ave Mehta Primary Care Unavailable Gunnar Fernandez Attending Unavailable Gunnar Fernandez Admitting Unavailable Ave Mehta Primary Care Unavailable Nj Ferguson Consulting Unavailable Javi Pearson Attending Unavailable Aissatou Sotelo Admitting Unavailable Ave Mehta Primary Care Unavailable Dwight Diaz II Consulting UnavailDioni Beltran Consulting Unavailable Emilie Perez Admitting Unavailable Ave Mehta Primary Care Unavailable Emilie Perez Attending Unavailable JANINE Carter, DR DORADO Primary Care Unavailable JAINNE ., DR DORADO Admitting Unavailable JANINE ., DR DORADO Consulting Unavailable JANINE ., DR DORADO Attending Unavailable JOSE ., DR CURTIS Consulting Unavailable LEÓN DIAS Consulting Unavailable AUDRA LAGOS Consulting Unavailable CARITO BULLOCK Consulting Unavailable MARE JAIMES Consulting Unavailable LEÓN DIAS Admitting Unavailable LEÓN DIAS Attending Unavailable JANINE Carter, DR DORADO Primary Care Unavailable JANINE ., DR DORADO Primary Care Unavailable SHERIE OLMOS Attending Unavailable SHERIE OLMOS Admitting Unavailable JANINE Carter, DR DORADO Primary Care Unavailable DR MARINO FERNANDEZ Consulting Unavailable HOY ., DR DORADO Primary Care Unavailable ISSA ., MIRNA Attending Unavailable ISSA ., MIRNA Admitting Unavailable ISSA ., MIRNA Consulting Unavailable FAWN MARINELLI Consulting Unavaila ble HIGHLANDER, PETER D Admitting Unavailable HIGHLANDER, PETER D Attending Unavailable HOY ., DR DORADO Primary Care Unavailable HIGHLANDER, PETER D Admitting Unavailable HIGHLANDER, PETER D Attending Unavailable HOY ., DR DORADO Primary Care Unavailable HIGHLANDER, PETER D Attending Unavailable HOY ., DR DORADO Primary Care Unavailable HIGHLANDER, PETER D Admitting Unavailable HIGHLANDER, PETER D Attending Unavailable HOY ., DR DORADO Primary Care Unavailable HIGHLANDER, PETER D Admitting Unavailable HIGHLANDER, PETER D Admitting Unavailable HOY ., DR DORADO Primary Care Unavailable HIGHLANDER, PETER D Attending Unavailable HIGHLANDER, PETER D Admitting Unavailable HOY ., DR DORADO Primary Care Unavailable HIGHLANDER, PETER D Attending Unavailable HIGHLANDER, PETER D Attending Unavailable HOY ., DR DORADO Primary Care Unavailable HIGHLANDER, PETER D Admitting Unavailable HIGHLANDER, PETER D Attending Unavailable HOY ., DR DORADO Primary Care Unavailable HIGHLANDER, PETER D Admitting Unavailable HOY ., DR DORADO Primary Care Unavailable HIGHLANDER, PETER D Admitting Unavailable HIGHLANDER, PETER D Attending Unavailable HIGHLANDER, PETER D Admitting Unavailable HIGHLANDER, PETER D Attending Unavailable HOY ., DR DORADO Primary Care Unavailable HOY ., DR DORADO Primary Care Unavailable HOY ., DR DORADO Admberenice Unavailable HOY ., DR DORADO Attending Unavailable HOY ., DR DORADO Consulting Unavailable HOY ., DR DORADO Admitting Unavailable HOY ., DR DORADO Consulting Unavailable HOY ., DR DORADO Attending Unavailable HOY ., DR DORADO Primary Care Unavailable LEONIDES, LEONIE Attending Unavailable LEONIDES, LEONIE Admitting Unavailable ZIANIRUDH, DR MARINO Braswell Consulting Unavailable HOY ., DR DORADO Primary Care Unavailable PAY ., DR DING Consulting Unavailable LOENIE COYLE Consulting Unavailable LEÓN LLAMAS Consulting Unavailable PAY ., DR DING Attending Unavailable PAY ., DR DING Consulting Unavailable HOY ., DR DORADO Primary Care Unavailable PAY ., DR DING Admitting Unavailable DUNN ., MR BETI Consulting Unavailable MADINA ACEVEDO Consulting Unavailable NGUYEN GONZALES Consulting Unavailable HIGHLANDER, PETER D Admitting Unavailable HIGHLANDER, PETER D Attending Unavailable HOY ., DR DORADO Primary Care Unavailable HOY ., DR DORADO Primary Care Unavailable CLARISSE .JAMES Attending Unavailable CLARISSE ., JAMES Admitting Unavailable HOY ., DR DORADO Primary Care Unavailable SHERIE OLMOS Attending Unavailable SHERIE OLMOS Admitting Unavailable HOY ., DR DORADO Primary Care Unavailable HOY ., DR DORADO Admitting Unavailable HOY ., DR DORADO Consulting Unavailable HOY ., DR DORADO Attending Unavailable LARISSA, LEÓN Tejada Consulting Unavailable LARISSA, PETER D Admitting Unavailable HOY ., DR DORADO Primary Care Unavailable PAOLOANDER, LEÓN Tejada Attending Unavailable AGUBOSIM, ISABEL Consulting Unavailable LONG, NEYDA Consulting Unavailable AYYAGARI ., SAMINA Consulting Unavailable ISSA ., MIRNA Attending Unavailable SEUN ., ALISON Consulting Unavailable HOY ., DR DORADO Primary Care Unavailable ISSA ., MIRNA Admitting Unavailable DAVID STOKES Consulting Unavailable SHERRY CONDON Consulting Unavailable HOY ., DR DORADO Admitting Unavailable HOY ., DR DORADO Consulting Unavailable HOY ., DR DORADO Attending Unavailable MARGO, DR BORIS Hardwick Procedure Practitioner Yun vailable JANINE ., DR DORADO Primary Care Unavailable BOLANOS ., DR IVAN Bowden Consulting Unavailable MARGO, DR BORIS Hardwick Consulting UnavailKIAN Ricci Consulting Unavailable RISHABH ART Consulting Unavailable LEÓN PETERS Consulting Unavailable HOY ., DR DORADO Primary Care Unavailable HOY ., DR DORADO Admberenice Unavailable ROSETTA, DR REYMUNDO Braswell Consulting Unavailable HOY ., DR DORADO Attending Unavailable HOY ., DR DORADO Consulting Unavailable SHAIKH Roberto NICOLAS Consulting Unavailable PAOLOANDER, PETER D Consulting Unavailable LARISSA PETER D Attending Unavailable LARISSA, LEÓN D Admitting Unavailable HOY ., DR DORADO Primary Care Unavailable HOY ., DR DORADO Primary Care Unavailable ALGHODISHA, MOHAMAMallory Attending Unavailable ALGHOTHANI, MOHAMAD Admitting Unavailable MARKEL AMBROCIO Consulting Unavailable LARISSA, PETER D Admitting Unavailable PAOLOANDER, PETER D Attending Unavailable HOY ., DR DORADO Primary Care Unavailable GARLAND, DR RISHABH Martin Consulting Unavailable PAOLOANDER, PETER D Consulting Unavailable Arthur OLIVER, Ирина Loya Attending Unavailable Gieditis , Ирина Loya Attending Unavailable Giedraitis , Ирина Loya Attending Unavailable Giedraitis MD, Ирина Loya Attending Unavailable ENOCH FRANKEL Attending Unavailable KRISTIAN MERAZ Attending Unavailable MARKEL AMBROCIO Attending Unavailable KRISTIAN MERAZ Attending Unavailable ENOCH FRANKEL Referring Unavailable Allergies Allergy Classification Reported Allergen(s) Allergy Type Date of Onset Reaction(s) Facility (1 source) house dust allergenic extract; Translations: [HOUSE DUST] Drug Allergy 4 [facility] Repository (1 source) Pollen; Translations: [POLLEN EXTRACTS] Propensity to adverse reactions to drug (disorder) 4 [facility] Rep[facility] Medications Current Medications Medication Drug Class(es) Dates Sig (Normalized) Sig (Original) acetaminophen 500 mg oral tablet (13 sources) take 2 tablets by mouth every eight hours as needed [facility] Acetaminophen [facility] 500 MG TAKE 2 TABLETS BY MOUTH EVERY 8 HOURS NEEDED for 30 Active acetaminophen 325 mg / HYDROcodone bitartrate 5 mg oral tablet (9 sources) Opioid Agonist Start: 11-03-2021 take 1 tablet by mouth every eight hours HYDROcodone-Acetam inophen 5-325 MG 1 tablet as needed Orally every 8 hrs for 7 days October, Active amLODIPine 5 mg oral tablet (13 sources) Dihydropyridine Calcium Channel Marah take 1 tablet by mouth every twenty-four hours amLODIPine Besylate 5 MG 1 tablet Orally Once a day Active aspirin 81 mg oral tablet (13 sources) Platelet Aggregation Inhibitor, Nonsteroidal Anti-inflammatory Drug take 1 tablet by mouth once daily Aspirin 81 81 MG 1 tablet Orally Once a day Active baclofen 10 mg oral tablet (6 sources) gamma-Aminobutyric Acid-ergic Agonist take 1 tablet by mouth every twelve hours Baclofen 10 MG 1 tablet as needed Orally Twice a day Active buPROPion hydrochloride 100 mg oral tablet (13 sources) Aminoketone take 1 tablet by mouth every twelve hours buPROPion HCl 100 MG 1 tablet Orally Twice a day Active busPIRone hydrochloride 15 mg oral tablet (13 sources) take 1 tablet by mouth every twelve hours busPIRone HCl 15 MG 1 tablet Orally Twice a day Active Calcium-Vitamin D 500-400 MG-UNIT (13 sources) Start: 07-20-2020 take 1 tablet by mouth once daily Calcium-Vitamin D 500-400 MG-UNIT 1 tablet with a meal Orally Once a day for 30 day(s) Jul, Active carvedilol 25 mg oral tablet (13 sources) alpha-Adrenergic Marah, beta-Adrenergic Marah take 1 tablet by mouth every twelve hours Carvedilol 25 MG 1 tablet with food Orally Twice a day Active cephalexin 500 mg oral capsule (9 sources) Cephalosporin Antibacterial Start: 11-03-2021 take 1 capsule by mouth twice daily Cephalexin 500 MG 1 capsule Orally twice daily for 14 days October, Active clonazePAM 0.5 mg oral tablet (13 sources) Benzodiazepine take 1 tablet by mouth every twenty-four hours clonazePAM 0.5 MG 1 tablet at bedtime Orally Once a day Active diclofenac sodium 75 mg delayed release oral tablet (13 sources) Nonsteroidal Anti-inflammatory Drug take 1 tablet by mouth every twelve hours Diclofenac Sodium 75 MG 1 tablet Orally Twice a day Active ferrous sulfate 325 mg oral tablet (13 sources) take 1 tablet by mouth every twenty-four hours Iron 325 (65 Fe) MG 1 tablet Orally Once a day Active gabapentin 300 mg oral capsule (10 sources) Anti-epileptic Agent Start: 10-28-2021 take 2 capsules by mouth every twelve hours Gabapentin 300 MG 2 capsule Orally BID for 30 day(s) October, Active Start: 10-28-2021 take 1 capsule by mo [facility] every twelve hours Gabapentin 300 MG 1 capsule Orally BID for 30 day(s) October, Active hydrALAZINE hydrochloride 50 mg oral tablet (13 sources) Arteriolar Vasodilator take 1 tablet by mouth every eight hours hydrALAZINE HCl 50 MG 1 tablet with food Orally Three times a day Active take [facility] tablet [facility] every eight hours hydrALAZINE HCl 25 MG 1 tablet with food Orally Three times a day Active spironolactone 50 mg oral tablet (13 sources) Aldosterone Antagonist take 1 tablet by mouth every twenty-four hours Spironolactone 50 MG 1 tablet Orally Once a day Active tiZANidine 4 mg oral tablet (13 sources) Central alpha-2 Adrenergic Agonist take 1 tablet by mouth every eight hours tiZANidine HCl 4 MG 1 tablet as needed Orally Three times a day Active traMADol hydrochloride 50 mg oral tablet (19 sources) Opioid Agonist Start: 022 take 1 tablet by mouth every four hours traMADol HCl 50 MG 1 tablet as needed Orally every 4 hours 30 Mar, 2022 Active Start: 08-26-2020 take 1 tablet by brynn th every eight hours as needed for pain traMADol HCl 100 MG 1 tablet as needed for pain Orally every 8 hours for 7 days Aug, Active Start: 07-20-2020 take 1 tablet by brynn th every six hours traMADol HCl 50 MG 1 tablet as needed Orally every 6 hours for 7 days Jul, Active Vitamin D3 (13 sources) Vitamin D3 Activ e Completed/Discontinued Medications Medication Drug Class(es) Dates Sig (Normalized) Sig (Original) triamcinolone acetonide 40 mg/ml injectable suspension (13 sources) Corticosteroid Start: 09-08-2021 Kenalog-40 Aug, 40 mg Start: 09-08-2021 Kenalog -40 mg Aug, 40 mg Problems Active Problems Problem Classification Problem Date Documented Da te Episodic/Chronic Anxiety disorders (1 source) Anxiety disorder, unspecified; Translations: [ANXIETY DISORDER UNSPECIFIED] Onset: 08-18-2022 Chronic Anxiety disorders (1 source) Anxiety disorder due to known physiological condition; Translations: [ANXIETY D/O DUE KNOWN PHYSIO COND] Onset: 08-18-2022 Episodic Cardiac dysrhythmias (4 sources) Paroxysmal atrial fibrillation; Translations: [Unspecified atrial fibrillation] Onset: 12-20-2021 Chronic Chronic kidney disease (3 sources) Chronic kidney disease, unspecified; Translations: [Chronic kidney disease, stage 2 (mild)] Onset: 11-04-2021 Chronic Chronic ulcer of skin (12 sources) Non-pressure chronic ulcer of unspecified part of right lower leg with fat layer exposed; Translations: [Non-pressure chronic ulcer of other part of left lower leg with fat layer exposed] Onset: 12-20-2021 Chronic Complications of surgical procedures or medical care (5 sources) Other complications of procedures, not elsewhere classified, initial encounter; Translations: [OTH COMPLICATIONS PROC NEC INITIAL] Onset: 03-11-2022 Episodic Conduction disorders (18 sources) Cardiac pacemaker in situ; Translations: [Presence of cardiac pacemaker] Onset: 10-07-2021 Resolved: 10-07-2021 Chronic Congestive heart failure; nonhypertensive (6 sources) Acute on chronic systolic (congestive) heart failure; Translations: [Unspecified systolic (congestive) heart failure] Onset: 04-27-2022 Chronic Deficiency and other anemia (1 source) Anemia in other chronic diseases classified elsewhere; Translations: [D63.8 - Anemia in other chronic diseases classified elsewhere] Onset: 11-04-2021 Chronic Deficiency and other anemia (1 source) Iron deficiency anemia secondary to blood loss (chronic); Translations: [IRON DEFIC ANEMIA SEC BLD LOSS CHRN] Onset: 07-27-2022 Chronic Deficiency and other anemia (1 source) Anemia in chronic kidney disease; Translations: [ANEMIA IN CHRONIC KIDNEY DISEASE] Onset: 03-31-2022 Chronic Deficiency and other anemia (2 sources) Anemia, unspecified; Translations: [D64.9 - Anemia, unspecified] Onset: 11-04-2021 Episodic Disorders of lipid metabolism (4 sources) Hyperlipidemia, unspecified; Translations: [HYPERLIPIDEMIA UNSPECIFIED] Onset: 02-11-2022 Chronic Esophageal disorders (1 source) Gastro-esophageal reflux disease without esophagitis; Translations: [GERD WITHOUT ESOPHAGITIS] Onset: 08-18-2022 Chronic Essential hypertension (2 sources) Essential (primary) hypertension; Translations: [I10 - Essential (primary) hypertension] Onset: 11-04-2021 Chronic Fluid and electrolyte disorders (5 sources) Hypo-osmolality and hyponatremia; Translations: [Hyperkalemia] Onset: 12-05-2021 Episodic Genitourinary symptoms and ill-defined conditions (2 sources) Retention of urine, unspecified; Translations: [Personal history of urinary (tract) infections] Onset: 05-11-2022 Episodic Hypertension with complications and secondary hypertension (1 source) Hypertensive chronic kidney disease with stage 1 through stage 4 chronic kidney disease, or unspecified chronic kidney disease; Translations: [HTN CKD W/STAGE 1-4 CKD/UNS CKD] Onset: 05-11-2022 Chronic Mood disorders (3 sources) Bipolar disorder, unspecified; Translations: [Major depressive disorder, single episode, unspecified] Onset: 11-04-2021 Chronic Nutritional deficiencies (1 source) Vitamin D deficiency, unspecified; Translations: [VITAMIN D DEFICIENCY UNSPECIFIED] Onset: 08-18-2022 Chronic Nutritional deficiencies (1 source) Vitamin A deficiency with conjunctival xerosis; Translations: [VITAMIN A DEFIC W/CONJUNCT XEROSIS] Onset: 08-18-2022 Episodic Osteoarthritis (18 sources) Osteoarthritis of knee; Translations: [Bilateral primary osteoarthritis of knee] Onset: 10-28-2021 Resolved: 12-23-2021 Chronic Osteoporosis (4 sources) Age-related osteoporosis without current pathological fracture; Translations: [AGE-REL OSTEOPOR W/O CURR PATH FX] Onset: 05-23-2022 Chronic Other acquired deformities (12 sources) Lumbar spondylolisthesis; Translations: [Spondylolisthesis, lumbar region] Episodic Other aftercare (1 source) Other 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 block 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 (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; Translations: [OTH PARTS RUNNER CURRENT DRUG THERAPY] Onset: 10-18-2022 Episodic Other connective tissue disease (13 sources) Trochanteric bursitis of left hip; Translations: [Trochanteric bursitis, left hip] Episodic Other connective tissue disease (4 sources) Pain in left leg; Translations: [PAIN IN LEFT LEG] Onset: 10-14-2022 Episodic Other connective tissue disease (1 source) Muscle weakness (generalized); Translations: [MUSCLE WEAKNESS GENERALIZED] Onset: 08-18-2022 Episodic Other diseases of veins and lymphatics (5 sources) Venous insufficiency (chronic) (peripheral); Translations: [VENOUS INSUFF CHRONIC PERIPHERAL] Onset: 06-09-2022 Episodic Other fractures (13 sources) Fracture of pubis; Translations: [Unspecified fracture of left pubis, subsequent encounter for fracture with delayed healing] Episodic Other nervous system disorders (13 sources) Chronic pain; Translations: [Other chronic pain] Chronic Other nervous system disorders (4 sources) Other chronic pain Onset: 10-28-2021 Resolved: 12-23-2021 Chronic Other non-traumatic joint disorders (1 source) Other specified arthritis, left knee; Translations: [OTHER SPECIFIED ARTHRITIS LEFT KNEE] Onset: 10-18-2022 Chronic Other non-traumatic joint disorders (13 sources) Knee pain; Translations: [Pain in unspecified knee] Episodic Other non-traumatic joint disorders (1 source) Effusion, left knee; Translations: [EFFUSION LEFT KNEE] Onset: 08-18-2022 Episodic Other nutritional; endocrine; and metabolic disorders (13 sources) Morbid obesity; Translations: [Morbid (severe) obesity due to excess calories] Chronic Other nutritional; endocrine; and metabolic disorders (3 sources) Morbid (severe) obesity due to excess calories; Translations: [MORBID SEVERE OBES D/T EXCESS ANJU] Onset: 09-08-2021 Resolved: 10-06-2021 Chronic Other nutritional; endocrine; and metabolic disorders (1 source) Body mass index (BMI) 45.0-49.9, adult; Translations: [BODY MASS INDEX BMI 45.0-49.9 ADULT] Onset: 03-31-2022 Chronic Spondylosis; intervertebral disc disorders; other back problems (20 sources) Solitary sacroiliitis; Translations: [Sacroiliitis, not elsewhere classified] Onset: 10-06-2021 Resolved: 12-23-2021 Chronic Substance-related disorders (1 source) Nicotine dependence, cigarettes, uncomplicated; Translations: [NICOTINE DEPEND CIGARETTES UNCOMP] Onset: 05-11-2022 Chronic Unclassified (1 source) E87.1 - Hypo-osmolality and hyponatremia; Translations: [E87.1 - Hypo-osmolality and hyponatremia] Onset: 11-04-2021 Unclassified (1 source) M25.562 - Pain in left knee; Translations: [M25.562 - Pain in left knee] Onset: 11-03-2021 Unclassified (1 source) M43.16 - Spondylolisthesis, lumbar region; Translations: [M43.16 - Spondylolisthesis, lumbar region] Onset: 10-26-2021 Unclassified (1 source) M54.50 - Low back pain, unspecified; Translations: [M54.50 - Low back pain, unspecified] Onset: 10-06-2021 Unclassified (1 source) CONTACT W/AND (SUSP) EXPOS COVID-19; Translations: [CONTACT W/AND (SUSP) EXPOS COVID-19] Onset: 05-11-2022 Unclassified (1 source) COUGH, UNSPECIFIED; Translations: [COUGH, UNSPECIFIED] Onset: 12-16-2021 Past or Other Problems Problem Classification Problem Date Documented Da te Episodic/Chronic Acute and unspecified renal failure (1 source) Acute kidney failure, unspecified; Translations: [ACUTE KIDNEY FAILURE UNSPECIFIED] Onset: 2 Episodic Acute posthemorrhagic anemia (3 sources) Acute posthemorrhagic anemia; Translations: [ACUTE POSTHEMORRHAGIC ANEMIA] Onset: 2 Episodic Deficiency and other anemia (1 source) Iron deficiency anemia, unspecified; Translations: [IRON DEFICIENCY ANEMIA UNSPECIFIED] Onset: 2 Episodic E Codes: Fall (3 sources) Unspecified fall, initial encounter; Translations: [Fall from chair, initial encounter] Onset: 2 Episodic Gastrointestinal hemorrhage (1 source) Gastrointestinal hemorrhage, unspecified; Translations: [GASTROINTESTINAL HEMORRHAGE UNS] Onset: 2 Episodic Malaise and fatigue (4 sources) Weakness; Translations: [WEAKNESS] Onset: 2 Episodic Open wounds of extremities (5 sources) Unspecified open wound, left lower leg, initial encounter; Translations: [UNS OPEN WOUND LT LOWER LEG INITIAL] Onset: 2 Episodic Other acquired deformities (1 source) Spondylolisthesis, lumbar region Onset: 2 Resolved: 2 Episodic Other aftercare (1 source) 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; Translations: [PARTS RUNNER CURRENT USE ANTIBIOTICS] Onset: 2 Episodic Other aftercare (1 source) halfway (current) use of aspirin; Translations: [MCC CURRENT USE OF ASPIRIN] Onset: 2 Episodic Other aftercare (1 source) regional intermodal truck driver (current) use of insulin; Translations: [MCC CURRENT USE OF INSULIN] Onset: 2 Episodic Other circulatory disease (1 source) Hypotension, unspecified; Translations: [HYPOTENSION UNSPECIFIED] Onset: 2 Episodic Other connective tissue disease (2 sources) Trochanteric bursitis, left hip Onset: 2 Resolved: 2 Episodic Other connective tissue disease (1 source) Pain in left lower leg; Translations: [PAIN IN LEFT LOWER LEG] Onset: 2 Episodic Other fractures (2 sources) Unspecified fracture of left pubis, subsequent encounter for fracture with delayed healing Onset: 2 Resolved: 2 Episodic Other gastrointestinal disorders (1 source) Other fecal abnormalities; Translations: [OTHER FECAL ABNORMALITIES] Onset: 2 Episodic Other injuries and conditions due to external causes (1 source) History of falling; Translations: [HISTORY OF FALLING] Onset: 2 Episodic Other non-traumatic joint disorders (1 source) Pain in unspecified hip Onset: 2 Resolved: 2 Episodic Other non-traumatic joint disorders (2 sources) Pain in left knee Onset: 2 Resolved: 2 Episodic Other nutritional; endocrine; and metabolic disorders (1 source) Overweight; Translations: [OVERWEIGHT] Onset: 2 Episodic Other screening for suspected conditions (not mental disorders or infectious disease) (1 source) Other specified abnormal findings of blood chemistry; Translations: [OTH SPEC ABNORMAL FINDINGS BLD CHEM] Onset: 2 Episodic Residual codes; unclassified (1 source) Disorientation, unspecified; Translations: [DISORIENTATION UNSPECIFIED] Onset: 2 Episodic Residual codes; unclassified (3 sources) Altered mental status, unspecified; Translations: [ALTERED MENTAL STATUS UNSPECIFIED] Onset: 2 Episodic Residual codes; unclassified (1 source) Edema, unspecified; Translations: [EDEMA UNSPECIFIED] Onset: 2 Episodic Septicemia (except in labor) (2 sources) Sepsis, unspecified organism; Translations: [Severe sepsis without septic shock] Onset: 2 Episodic Skull and face fractures (1 source) Fracture of nasal bones, initial encounter for closed fracture; Translations: [FX NASAL BONES INITIAL ENC CLOS FX] Onset: 2 Episodic Superficial injury; contusion (18 sources) Contusion of left knee, initial encounter; Translations: [Contusion of left lower leg, initial encounter] Onset: 2 Resolved: 2 Episodic Unclassified (1 source) Lumbar pain M54.50 Onset: 2 Resolved: 2 Unclassified (2 sources) Other low back pain M54.59 Onset: 2 Resolved: 2 Urinary tract infections (1 source) Urinary tract infection, site not specified; Translations: [UTI SITE NOT SPECIFIED] Onset: 2 Episodic Results Test Name Value Interpretation Reference Range Facility Office Visiton 10-31-2023 Follow-up visit [id number] Linda Nascimento 1950 F Date Provider Department Center 10/31/2023 ENOCH RAMIREZ JUAN Stock [facility] Family History Problem Relation Age of Onset Lung cancer Mother Stroke Father Family Status - Relation Status Age at Mother Father Level of Service:[id number] AR OFFICE/OUTPATIENT ESTABLISHED MOD MDM 30 MIN [facility] 36on 10-17-2023 36 Let's keep her medications the same. Thanks [facility] 36 Please ask what her current weight is. [facility] 36on 08-01-2023 36 Please confirm what her dose of lasix is. It looks like she is on 40mg daily. If this is the dose, please have her increase to 40mg BID x5 days then start a higher dose of lasix at 60mg daily. Follow-up BMP in 2 weeks. They can check her weight either every other day or 3 times a week. Thanks [facility] 36on 07-27-2023 36 Regarding note from [facility] with patient's weights and BP's and mention of fluid restriction from 07/12/2023. GERMAN Peres MA Her blood pressure looks good. Her weight looks like it trended down some. I saw the note they wrote requesting weekly weight checks. I understand that she doesn't follow a fluid restriction but that makes close follow-up of her weights even more important to make sure she is not retaining fluid rapidly so we can catch it before it becomes a big problem. I understand getting the weights can be cumbersome too. If they could check her weight 2-3 times a week, I'd be okay with that. Maybe like check it MWF? Thanks! Printed and faxed back to [facility] [place]. [facility] Office Visiton 04-12-2023 Follow-up visit [id number] Linda Nascimento 1950 F Date Provider Department Center 04/12/2023 MARKEL HARMAN [facility] Family History Problem Relation Age of Onset Lung cancer Mother Stroke Father Family Status - Relation Status Age at Mother Father Level of Service:86534 [place] OFFICE/OUTPATIENT ESTABLISHED LOW MDM 20-29 MIN Reason for Visit and Comments: Congestive Heart Failure [127] Atrial Fibrillation [80] Hyperlipidemia [182] Coronary Artery Disease [187] [facility] Office Visiton 02-01-2023 Follow-up visit [id number] Linda Nascimento 1950 F Date Provider Department Center 02/01/2023 [facility] Family History Problem Relation Age of Onset Lung cancer Mother Stroke Father Family Status - Relation Status Age at Mother Father Level of Service:70229 AR OFFICE/OUTPATIENT ESTABLISHED LOW MDM 20-29 MIN Normal [facility] Office Visiton 12-30-2022 Follow-up visit [id number] Linda Nascimento 1950 F Date Provider Department Center 12/30/2022 [facility] Family History Problem Relation Age of Onset Lung cancer Mother Stroke Father Family Status - Relation Status Age at Mother Father Level of Service:47654 AR OFFICE/OUTPATIENT ESTABLISHED MOD MDM 30-39 MIN Normal [facility] CBC AUTO DIFFon 10-14-2022 BASO # 0.1 103/ul Normal 0.0-0.1 [facility] Comment on above: Performed By: #### C BC ####[facility] [address]nt[address] [place] [address]Dr. Slick Broderick Basophils/100 WBC (Bld) 0.6 % Normal 0.2-2.0 [facility] Comment on above: Performed By: #### C BC ####[facility] Pwjwenypji4[address] [place] [address]Dr. Slick Broderick EO # 0.4 103/ul Normal 0.0-0.7 [facility] Comment on above: Performed By: #### C BC ####[facility] Fvuudszcju7[address] [place] [address]Dr. Slick Broderick Eosinophils/100 WBC (Bld) 3.9 % Normal 0.9-7.0 [facility] Comment on above: Performed By: #### C BC ####[facility] Xzamepxwdu12[address] [place] [address]Dr. Slick Broderick Erythrocyte distribution width (RBC) [Ratio] 13.2 % Normal 11.0-15.0 [facility] Comment on above: Performed By: #### C BC ####[facility] Jglfbqqtyo5073 [place] [address]Dr. Slick Broderick Hematocrit (Bld) [Volume fraction] 32.4 % Critically low 36.0-48.0 [facility] Comment on above: Performed By: #### C BC ####[facility] Ojjtuekabs[address] [place] [address]Dr. Slick Broderick Hemoglobin (Bld) [Mass/Vol] 10.4 g/dL Critically low 12.0-16.0 [facility] Comment on above: Performed By: #### C BC ####[facility] Rshcalkdnq19[address] [place] [address]Dr. Slick Broderick IG # 0.19 10e3/ul Critically high 0.00-0.03 [facility] Comment on above: Performed By: #### C BC ####[facility] Fxidincpss[address] [place], [place] [address]Dr. Slick Broderick IG % 2.1 % Critically high 0.0-0.5 [facility] Comment on above: Performed By: #### C BC ####[facility] Fdsmfeqdjl0[address] [place], [place] [address]Dr. Slick Broderick LYMPH # 1.0 103/ul Critically low 1.2-3.8 [facility] Comment on above: Performed By: #### C BC ####[facility] Ensydycrdb[address] [place] [address]Dr. Slick Broderick Lymphocytes/100 WBC (Bld) 11.4 % Critically low 20.5-60.0 [facility] Comment on above: Performed By: #### C BC ####[facility] Nxyrrkrnqp7[address] [place] [address]Dr. Slick Broderick MANUAL DIFF REQ NO Normal [facility] Comment on above: Performed By: #### C BC ####[facility] Ytlrzwccwf[address] [place], [place] [address]Dr. Slick Broderick MCH (RBC) [Entitic mass] 32.0 pg Normal 26.7-34.0 [facility] Comment on above: Performed By: #### C BC ####[facility] Xtpmrccpch46[address] [place] [id number]. Slick Davie MCHC (RBC) [Mass/Vol] 32.1 g/dL Normal 29.9-35.2 [facility] Comment on above: Performed By: #### C BC ####[facility] Jvcaugbmmg34[address] [place] [id number]. Slick Davie MCV (RBC) [Entitic vol] 99.7 fL Critically high 81.0-99.0 [facility] Comment on above: Performed By: #### C BC ####[facility] Njorwvlwjt5[address] [place] [id number]. Meaganwendie Davie MONO # 1.0 103/ul Critically high 0.3-0.8 [facility] Comment on above: Performed By: #### C BC ####[facility] Gozopzirsh[address] [place] [address]Dr. Slick Broderick Monocytes/100 WBC (Bld) 10.8 % Normal 1.7-12.0 [facility] Comment on above: Performed By: #### C BC ####[facility] Rjntfysylr[address] [place], [place] [id number]. Meaganwendie Davie NEUT # 6.4 103/ul Normal 1.4-6.5 [facility] Comment on above: Performed By: #### C BC ####[facility] Rluhucnojb[address] [place], [place] [address]Dr. Slick Broderick Neutrophils/100 WBC (Bld) 71.2 % Normal 43.0-75.0 [facility] Comment on above: Performed By: #### C BC ####[facility] Awocvkuzat[address] [place], [place] [address]Dr. Slcik Broderick Platelet mean volume (Bld) [Entitic vol] 9.8 fL Normal 9.5-13.5 [facility] Comment on above: Performed By: #### C BC ####[facility] Ywvcaxyjrk[address] [place], [place] [address]Dr. Slick Broderick PLT 174 103/ul Normal 150-450 [facility] Comment on above: Performed By: #### C BC ####[facility] Vroudhztnw07[address] [place] [id number]. Slick Broderick RBC 3.25 106/ul Critically low 4.20-5.40 [facility] Comment on above: Performed By: #### C BC ####[facility] Pe[address]iyac[address] [place], [place] [address]Yf. Slick Broderick WBC 8.9 103/ul Normal 4.0-11.0 [facility] Comment on above: Performed By: #### C BC ####[facility] Ypbgdsvayn6[address] [place] [id number]. Slick Broderick CRPon 10-14-2022 CRP 0.5 mg/dL Normal <=1.0 [facility] Comment on above: Performed By: #### C RP, BMP ####[facility] Zhwafhtxae75[address] [place] [id number]. Slick Broderick D-DIMERon 10-14-2022 D-DIMER 0.86 mg/L FEU Critically high <=0.59 [facility] Comment on above: Performed By: #### D DIM ####[facility] Ednjoxcums03[address] [place] [id number]. Slick Broderick D-DIMER COMMENTS SEE BELOW Normal [facility] Comment on above: Result Comment: Incr eases in D-Dimer concentration observed with thromboembolic events can be variable due to localization, size, and age of the thrombus. Therefore, a thromboembolic event cannot be diagnosed with certainty on the basis of the reference range. D-Dimers may also be elevated for a variety of disorders including: advanced age, , coronary disease, cancer, liver disease, infection, inflammation, hematoma, DIC, trauma, post-surgery, diabetes, thrombolytic or anticoagulant therapy, stress, and generalized hospitalization. Performed By: #### D DIM ####[facility] Drhppvtdab[address] [place] [address]Dr. Slick Broderick PROF CHEM 8 (BAS METB)on Anion gap [Moles/Vol] 10.1 mmol/L Normal [facility] Comment on above: Performed By: #### C RP, BMP ####[facility] Irnjheddrp[address] [place] [address]Dr. Slick Broderick Calcium [Mass/Vol] 9.3 mg/dL Normal 8.5-10.1 [facility] Comment on above: Performed By: #### C RP, BMP ####[facility] Fuumyugzwd[address] [place], [place] [address]Dr. Slick Broderick Chloride [Moles/Vol] 98 mmol/L Normal 98-107 [facility] Comment on above: Performed By: #### C RP, BMP ####[facility] Dmwlhtubem[address] [place], [place] [address]Dr. Slick Broderick CO2 [Moles/Vol] 30.3 mmol/L Normal 21.0-32.0 [facility] Comment on above: Performed By: #### C RP, BMP ####[facility] Gsidgvvutq823[address] [place], [place] [address]Dr. Slick Broderick Creatinine [Mass/Vol] 2.15 mg/dL Critically high 0.55-1.02 [facility] Comment on above: Performed By: #### C RP, BMP ####[facility] Rfgddgtnbn[address] [place], [place] [address]Dr. Slick Broderick EGFR-AF DANISH 27 mL/min/1.73m2 Critically low >=60 [facility] Comment on above: Performed By: #### C RP, BMP ####[facility] Imwhklbhfo[address] [place], [place] [address]Dr. Slick Broderick EGFR-NON AF DANISH 22 mL/min/1.73m2 Critically low >=60 [facility] Comment on above: Performed By: #### C RP, BMP ####[facility] Zhyfujdrdf[address] [place] [address]Dr. Slick Broderick Glucose [Mass/Vol] 116 mg/dL Critically high 74-106 [facility] Comment on above: Performed By: #### C RP, BMP ####[facility] Qithejknze04[address] [place], [place] [address]Dr. Slick Broderick Potassium [Moles/Vol] 4.4 mmol/L Normal 3.5-5.1 [facility] Comment on above: Performed By: #### C RP, BMP ####[facility] Emlvqygzac54[address] [place] [address]Dr. Meaganwendie Broderick Sodium [Moles/Vol] 134 mmol/L Critically low 136-145 [facility] Comment on above: Performed By: #### C RP, BMP ####[facility] Lbnmpjzxry0213 [place] [address]Dr. Meaganwendie Broderick Urea nitrogen [Mass/Vol] 33.0 mg/dL Critically high 7.0-18.0 [facility] Comment on above: Performed By: #### C RP, BMP ####[facility] Sokjrdyqzj[address] [place] [address]Dr. Meaganwendie Broderick Urea nitrogen/Creatinine [Mass ratio] 15.3 mg/mg Normal [facility] Comment on above: Performed By: #### C RP, BMP ####[facility] Vuthdlqgyi8204 [place] [address]Dr. Meaganwendie Broderick US JENNY DOP LEG LTon 10-15-19 23 US JENNY DOP LEG LT Normal [facility] XR FEMUR LTon 10-14-2022 XR FEMUR LT Normal [facility] ECHOCARDIO M/2D COMPLETEon 0 09-14-2022 ECHOCARDIO M/2D COMPLETE Normal [facility] PRBC LEUKOREDUCEDon 06-09-20 22 PRBC LEUKOREDUCED Normal [facility] Comment on above: Performed By: #### P RBC ####[facility] Pfcpzrvrkg[address] [place], [place] [address]Dr. Slick Broderick BNPon 04-23-2022 Natriuretic peptide B (Bld) [Mass/Vol] 28849.0 pg/mL Critically high <=900.0 [facility] Comment on above: Performed By: #### C MP, CMADM, BNP ####[facility] Lredcjctyg[address] [place] [address]Dr. Meaganwendie Broderick CARDIAC REYMUNDO ADMITon 022 CK [Catalytic activity/Vol] 121 U/L Normal 26-192 [facility] Comment on above: Performed By: #### C MP, CMADM, BNP ####[facility] Tygtrhujog7[address] [place] [address]Dr. Slick Broderick CK.MB [Mass/Vol] 5.67 ng/mL Critically high <=3.60 [facility] Comment on above: Performed By: #### C MP, CMADM, BNP ####[facility] Vxisvcxrev78[address] [place] [address]Dr. Slick Broderick HSTROP 3667.9 pg/mL Critically high 4.0-51.3 [facility] Comment on above: Result Comment: CUT- OFF POINTS HAVE BEEN ESTABLISHED BASED ON THE FOURTH UNIVERSAL DEFINITIONS OF MYOCARDIALINFARCTION. THE UPPER REFERENCE LIMIT (URL) OF TROPONIN, DEFINED THE 99TH PERCENTILE OFcTnI DISTRIBUTION IN A REFERENCE POPULATION, HAS BEEN CONFIRMED THE DECISION THRESHOLDFOR ID DIAGNOSIS. Performed By: #### C MP, CMADM, BNP ####[facility] Yirmebyjwi[address] [place], [place] [address]Dr. Slick Broderick NEHEMIAH 225 ng/mL Critically high 9-82 [facility] Comment on above: Performed By: #### C MP, CMADM, BNP ####[facility] Cczktqrnbi5[address] [place] [address]Dr. Slick Broderick CBC AUTO DIFFon 04-23-2022 BASO # 0.0 103/ul Normal 0.0-0.1 [facility] Comment on above: Performed By: #### C BC ####[facility] Palurbpumn[address] [place] [address]Dr. Slick Davie Basophils/100 WBC (Bld) 0.3 % Normal 0.2-2.0 [facility] Comment on above: Performed By: #### C BC ####[facility] Axtjklvdxg9205 [place] [address]Dr. Slick Broderick EO # 0.0 103/ul Normal 0.0-0.7 [facility] Comment on above: Performed By: #### C BC ####[facility] Nufobgzyqu[address] [place], [place] [address]Dr. Slick Broderick Eosinophils/100 WBC (Bld) 0.3 % Critically low 0.9-7.0 [facility] Comment on above: Performed By: #### C BC ####[facility] Iqvshqphyk35[address] [place] [address]Dr. Slick Broderick Erythrocyte distribution width (RBC) [Ratio] 14.0 % Normal 11.0-15.0 [facility] Comment on above: Performed By: #### C BC ####[facility] Yqpbkhtxar4354 [place] [address]Dr. Slick Broderick Hematocrit (Bld) [Volume fraction] 21.9 % Critically low 36.0-48.0 [facility] Comment on above: Performed By: #### C BC ####[facility] Alvsdjtalu[address] [place], [place] [address]Dr. Slick Broderick Hemoglobin (Bld) [Mass/Vol] 7.1 g/dL Critically low 12.0-16.0 [facility] Comment on above: Performed By: #### C BC ####[facility] Jypwsnlcpo[address] [place], [place] [address]Dr. Slick Broderick IG # 0.04 10e3/ul Critically high 0.00-0.03 [facility] Comment on above: Performed By: #### C BC ####[facility] Afzeeuibrq[address] [place], [place] [address]Dr. Slick Broderick IG % 0.4 % Normal 0.0-0.5 [facility] Comment on above: Performed By: #### C BC ####[facility] Ytvrdzhcfo9[address] [place], [place] [address]Dr. Slick Broderick LYMPH # 0.8 103/ul Critically low 1.2-3.8 [facility] Comment on above: Performed By: #### C BC ####[facility] Ywvannokiq[address] [place], [place] [address]Dr. Slick Broderick Lymphocytes/100 WBC (Bld) 7.7 % Critically low 20.5-60.0 [facility] Comment on above: Performed By: #### C BC ####[facility] Iptblxetof[address] [place], [place] [address]Dr. Slick Broderick MANUAL DIFF REQ NO Normal [facility] Comment on above: Performed By: #### C BC ####[facility] Nnxrjdmdpo25[address] [place] [id number]. Slick Davie MCH (RBC) [Entitic mass] 29.3 pg Normal 26.7-34.0 [facility] Comment on above: Performed By: #### C BC ####[facility] Hbkinzdhfk9468 [place] [id number]. Slick Davie MCHC (RBC) [Mass/Vol] 32.4 g/dL Normal 29.9-35.2 [facility] Comment on above: Performed By: #### C BC ####[facility] Hrzafafjbj71[address] [place] [address]Dr. Meaganwendie Broderick MCV (RBC) [Entitic vol] 90.5 fL Normal 81.0-99.0 [facility] Comment on above: Performed By: #### C BC ####[facility] Zllgmjbqnp04[address] [place], [place] [address]Dr. Slick Broderick MONO # 1.0 103/ul Critically high 0.3-0.8 [facility] Comment on above: Performed By: #### C BC ####[facility] Ugxvznogzq335[address] [place], [place] [address]Dr. Slick Broderick Monocytes/100 WBC (Bld) 9.6 % Normal 1.7-12.0 [facility] Comment on above: Performed By: #### C BC ####[facility] Bbtmvpahpp016[address] [place], [place] [address]Dr. Slick Broderick NEUT # 8.6 103/ul Critically high 1.4-6.5 [facility] Comment on above: Performed By: #### C BC ####[facility] E[address]rhaf[address]wsx[address] [place], [place] [address]Dr. Slick Broderick Neutrophils/100 WBC (Bld) 81.7 % Critically high 43.0-75.0 [facility] Comment on above: Performed By: #### C BC ####[facility] Qzyvihuhia[address] [place] [address]Dr. Slick Broderick Platelet mean volume (Bld) [Entitic vol] 10.0 fL Normal 9.5-13.5 [facility] Comment on above: Performed By: #### C BC ####[facility] Ubcoazudjj0284 [place] [id number]. Slick Broderick PLT 195 103/ul Normal 150-450 [facility] Comment on above: Performed By: #### C BC ####[facility] Mjrqjhhrew9417 [place], [place] [address]Yi. Slick Broderick RBC 2.42 106/ul Critically low 4.20-5.40 [facility] Comment on above: Performed By: #### C BC ####[facility] Phaooghtkt2883 [place] [id number]. Slick Broderick WBC 10.5 103/ul Normal 4.0-11.0 [facility] Comment on above: Performed By: #### C BC ####[facility] Sfofgkzhtw0313 [place] [id number]. Slick Broderick CT HEAD WO CONon 04-23-2022 CT HEAD WO CON Normal [facility] CULTURE BLOODon 04-23-2022 Microscopic examination of blood, culture Culture Observations: NO GROWTH AT 5 DAYS. Normal [facility] Comment on above: Performed By: #### B LDCX2 ####[facility] Nalshjevar24[address] [place] [id number]. Slick Broderick Microscopic examination of blood, culture Culture Observations: NO GROWTH AT [address] [facility] Comment on above: Performed By: #### B LDCX1 ####[facility] Raskfnoftk9712 [place] [id number]. Slick Broderick Covid-19 PCR (CVDTB)on 04-12 SARS-CoV-2 (COVID-19) RNA DONNIE+probe Ql (Unsp spec) Not detected Normal NOT DETECTED [facility] Comment on above: Result Comment: When diagnostic testing is negative, the possibility of a false negative should be considered inthe context of a patient's recent exposures and the presence of clinical signs and symptomsconsistent with SARS-CoV-2.This test is not yet approved or cleared by the [place] FDA. When there are no FDA-approved or cleared tests available, and other criteria are met, FDA can make tests available under an emergency access mechanism called an Emergency Use Authorization (EUA). The EUA for this test is supported by the Production Statistical Clerk of Health and Human Service's declaration that circumstances exist to justify the emergency use of in vitro diagnostics for the detection and/or diagnosis of the virus that causes COVID-19. This EUA will remain in effect for the duration of the COVID-19 declaration justifying emergency of IVDs, unless it is terminated or revoked by the FDA (after which the test may no longer be used). Performed By: #### C VDTBH ####[facility] Yishvcqcyi[address] [place] [address]Dr. Slick Broderick LACTATE/LACTIC ACIDon 2021 Lactate [Moles/Vol] 1.2 mmol/L Normal 0.4-1.9 [facility] Comment on above: Performed By: #### L ACT ####[facility] Fwdndtxdqa7[address] [place], [place] [address]Dr. Slick Broderick PROF 14(COMP METB)on 022 Albumin [Mass/Vol] 2.9 g/dL Critically low 3.4-5.0 [facility] Comment on above: Performed By: #### C MP, CMADM, BNP ####[facility] Izjsqrqcim86[address] [place] [address]Dr. Slick Broderick Albumin/Globulin [Mass ratio] 0.9 {ratio} Normal [facility] Comment on above: Performed By: #### C MP, CMADM, BNP ####[facility] Kybhikkqcn7100 [place] [address]Dr. Slick Broderick ALP [Catalytic activity/Vol] 88 U/L Normal 46-116 [facility] Comment on above: Performed By: #### C MP, CMADM, BNP ####[facility] Mxfriirqpm1834 [place] [address]Dr. Slick Broderick ALT [Catalytic activity/Vol] 22 U/L Normal 14-59 [facility] Comment on above: Performed By: #### C MP, CMADM, BNP ####[facility] Dapwdtblet0329 [place] [address]Dr. Slick Broderick Anion gap [Moles/Vol] 14.0 mmol/L Normal [facility] Comment on above: Performed By: #### C MP, CMADM, BNP ####[facility] Xbwdgzuenc0736 [place] [address]Dr. Slick Broderick AST [Catalytic activity/Vol] 26 U/L Normal 15-37 [facility] Comment on above: Performed By: #### C MP, CMADM, BNP ####[facility] Iwpozktshf[address] [place], [place] [address]Dr. Slick Broderick Bilirubin [Mass/Vol] 0.5 mg/dL Normal 0.2-1.0 [facility] Comment on above: Performed By: #### C MP, CMADM, BNP ####[facility] Ezdytpdgyi754[address] [place], [place] [address]Dr. Slick Broderick Calcium [Mass/Vol] 9.7 mg/dL Normal 8.5-10.1 [facility] Comment on above: Performed By: #### C MP, CMADM, BNP ####[facility] Ysctcwwnjo[address] [place], [place] [address]Dr. Slick Broderick Chloride [Moles/Vol] 105 mmol/L Normal 98-107 [facility] Comment on above: Performed By: #### C MP, CMADM, BNP ####[facility] Imsrbzkkwr8290 [place] [address]Dr. Slick Broderick CO2 [Moles/Vol] 27.0 mmol/L Normal 21.0-32.0 [facility] Comment on above: Performed By: #### C MP, CMADM, BNP ####[facility] Zpqrauqvdk[address] [place], [place] [address]Dr. Slick Broderick Creatinine [Mass/Vol] 1.57 mg/dL Critically high 0.55-1.02 [facility] Comment on above: Performed By: #### C MP, CMADM, BNP ####[facility] Ehwjmbrbnf4476 [place] [address]Dr. Slick Broderick EGFR-AF DANISH 39 mL/min/1.73m2 Critically low >=60 [facility] Comment on above: Performed By: #### C MP, CMADM, BNP ####[facility] Udyzxyrxfb2923 [place] [address]Dr. Slick Broderick EGFR-NON AF DANISH 32 mL/min/1.73m2 Critically low >=60 [facility] Comment on above: Performed By: #### C MP, CMADM, BNP ####[facility] Ebfcimgkfl4743 [place] [address]Dr. Slick Broderick Globulin (S) [Mass/Vol] 3.2 g/dL Normal [facility] Comment on above: Performed By: #### C MP, CMADM, BNP ####[facility] Xxcawphxaj9[address] [place], [place] [address]Dr. Slick Broderick Glucose [Mass/Vol] 128 mg/dL Critically high 74-106 [facility] Comment on above: Performed By: #### C MP, CMADM, BNP ####[facility] Kpyeipjifi[address] [place], [place] [address]Dr. Slick Broderick Potassium [Moles/Vol] 4.0 mmol/L Normal 3.5-5.1 [facility] Comment on above: Performed By: #### C MP, CMADM, BNP ####[facility] Rsbfjyieem[address] [place], [place] [address]Dr. Slick Broderick Protein [Mass/Vol] 6.1 g/dL Critically low 6.4-8.2 [facility] Comment on above: Performed By: #### C MP, CMADM, BNP ####[facility] Vftsclhmkg0362 [place] [address]Dr. Slick Broderick Sodium [Moles/Vol] 142 mmol/L Normal 136-145 [facility] Comment on above: Performed By: #### C MP, CMADM, BNP ####[facility] Gxfpckzxtf18[address] [place], [place] [address]Dr. Slick Broderick Urea nitrogen [Mass/Vol] 34.0 mg/dL Critically high 7.0-18.0 [facility] Comment on above: Performed By: #### C MP, CMADM, BNP ####[facility] Rkaafgmolp4763 [place] [id number]. Slick Broderick Urea nitrogen/Creatinine [Mass ratio] 21.7 mg/mg Normal [facility] Comment on above: Performed By: #### C MP, CMADM, BNP ####[facility] Mfjydykfjy0674 [place] [address]Dr. Slick Davie PROTIMEon 04-23-2022 INR Coag (PPP) [Relative time] 1.10 {INR} Normal [facility] Comment on above: Performed By: #### P T, PTT ####[facility] Djgupkxuls[address] [place] [address]Dr. Slick Broderick INR GUIDELINES SEE BELOW Normal [facility] Comment on above: Result Comment: EDMUND RED INR: 2.0 - 3.0 CONDITIONS NOT LISTED BELOW 2.5 - 3.5 FOR PROSTHETIC HEART VALVE REPLACEMENT 2.5 - 3.5 RECURRENT THROMBOSIS Performed By: #### P T, PTT ####[facility] Jlnwtefysw[address] [place], [place] [address]Dr. Slick Davie PT Coag (PPP) [Time] 11.8 s Critically high 9.0-11.6 [facility] Comment on above: Performed By: #### P T, PTT ####[facility] Fflptieocb0904 [place] [address]Dr. Slick Broderick PTTon 04-23-2022 aPTT Coag (Bld) [Time] 27.7 s Normal 22.3-36.2 [facility] Comment on above: Performed By: #### P T, PTT ####[facility] Gregurpxtw[address] [place], [place] [address]Dr. Slick Broderick TYPE AND SCREENon 04-23-2022 TYPE AND SCREEN Negative Normal [facility] Comment on above: Performed By: #### T NS ####[facility] Dqybxuuvdx[address] [place], [place] [address]Dr. Slick Broderick XR CHEST 1 Von 04-23-2022 XR CHEST 1 V Normal [facility] CBC AUTO DIFFon 04-22-2022 BASO # 0.0 103/ul Normal 0.0-0.1 [facility] Comment on above: Performed By: #### C BC ####[facility] Xjmogfonea8552 [place] [address]Dr. Slick Davie Basophils/100 WBC (Bld) 0.3 % Normal 0.2-2.0 [facility] Comment on above: Performed By: #### C BC ####[facility] Jnupdwdoni[address] [place], [place] [address]Dr. Slick Broderick EO # 0.1 103/ul Normal 0.0-0.7 [facility] Comment on above: Performed By: #### C BC ####[facility] Hmehsixjgg[address] [place], [place] [address]Dr. Meaganwendie Broderick Eosinophils/100 WBC (Bld) 1.4 % Normal 0.9-7.0 [facility] Comment on above: Performed By: #### C BC ####[facility] Bdkvvofket[address] [place], [place] [address]Dr. Slick Broderick Erythrocyte distribution width (RBC) [Ratio] 13.8 % Normal 11.0-15.0 [facility] Comment on above: Performed By: #### C BC ####[facility] Vrnzhmvgve[address] [place], [place] [address]Dr. Slick Davie Hematocrit (Bld) [Volume fraction] 27.4 % Critically low 36.0-48.0 [facility] Comment on above: Performed By: #### C BC ####[facility] Trqxstzzpr[address] [place], [place] [address]Dr. Slick Davie Hemoglobin (Bld) [Mass/Vol] 8.8 g/dL Critically low 12.0-16.0 [facility] Comment on above: Performed By: #### C BC ####[facility] Zrbzteizhn6[address] [place], [place] [address]Dr. Slick Broderick IG # 0.04 10e3/ul Critically high 0.00-0.03 [facility] Comment on above: Performed By: #### C BC ####[facility] Ewglzmdkdz30[address] [place], [place] [address]Dr. Slick Broderick IG % 0.6 % Critically high 0.0-0.5 [facility] Comment on above: Performed By: #### C BC ####[facility] Mrbpfpfqvl0383 [place] [address]DrEmma Broderick LYMPH # 0.7 103/ul Critically low 1.2-3.8 [facility] Comment on above: Performed By: #### C BC ####[facility] Bgmqpsmwcc2689 [place] [address]DrEmma Broderick Lymphocytes/100 WBC (Bld) 9.8 % Critically low 20.5-60.0 [facility] Comment on above: Performed By: #### C BC ####[facility] Rkhxiuafgh[address] [place], [place] [address]DrEmma Broedrick MANUAL DIFF REQ NO Normal [facility] Comment on above: Performed By: #### C BC ####[facility] Bijthlbpoc32[address] [place], [place] [address]DrEmma Broderick MCH (RBC) [Entitic mass] 28.9 pg Normal 26.7-34.0 [facility] Comment on above: Performed By: #### C BC ####[facility] Wycjffzzsq552[address] [place], [place] [address]DrEmma Broderick MCHC (RBC) [Mass/Vol] 32.1 g/dL Normal 29.9-35.2 [facility] Comment on above: Performed By: #### C BC ####[facility] Ztqbqmybel0[address] [place], [place] [id number] Broderick MCV (RBC) [Entitic vol] 90.1 fL Normal 81.0-99.0 [facility] Comment on above: Performed By: #### C BC ####[facility] Dowevdxrdt833[address] [place], [place] [address]DrEmma Broderick MONO # 0.6 103/ul Normal 0.3-0.8 [facility] Comment on above: Performed By: #### C BC ####[facility] Lxlxfswsfj[address] [place], [place] [address]DrEmma Broderick Monocytes/100 WBC (Bld) 7.6 % Normal 1.7-12.0 [facility] Comment on above: Performed By: #### C BC ####[facility] Wbxrdnzwfv6151 [place] [address]Dr. Slick Broderick NEUT # 5.9 103/ul Normal 1.4-6.5 [facility] Comment on above: Performed By: #### C BC ####[facility] Obizofwzdy6881 [place] [address]Dr. Slick Broderick Neutrophils/100 WBC (Bld) 80.3 % Critically high 43.0-75.0 [facility] Comment on above: Performed By: #### C BC ####[facility] Bsstkzcwmh255[address] [place], [place] [address]Dr. Slick Broderick Platelet mean volume (Bld) [Entitic vol] 9.5 fL Normal 9.5-13.5 [facility] Comment on above: Performed By: #### C BC ####[facility] Kqresvmniz004[address] [place], [place] [address]Dr. Slick Broderick PLT 204 103/ul Normal 150-450 [facility] Comment on above: Performed By: #### C BC ####[facility] Hlqfhmrohw338[address] [place], [place] [address]Dr. Slick Broderick RBC 3.04 106/ul Critically low 4.20-5.40 [facility] Comment on above: Performed By: #### C BC ####[facility] Hmxvpdiqvs624[address] [place], [place] [address]Dr. Slick Broderick WBC 7.3 103/ul Normal 4.0-11.0 [facility] Comment on above: Performed By: #### C BC ####[facility] Obnamahwix687[address] [place], [place] [address]Dr. Slick Broderick BASO # 0.0 103/ul Normal 0.0-0.1 [facility] Comment on above: Performed By: #### C BC ####[facility] Nwwudynwgh27500[address] [place], [place] [address]Dr. Slick Broderick Basophils/100 WBC (Bld) 0.5 % Normal 0.2-2.0 [facility] Comment on above: Performed By: #### C BC ####[facility] Nxsfqrbpbb994[address] [place], [place] [address]Dr. Slick Broderick EO # 0.6 103/ul Normal 0.0-0.7 [facility] Comment on above: Performed By: #### C BC ####[facility] Cmzznjodmx549[address] [place], [place] [address]Dr. Slick Broderick Eosinophils/100 WBC (Bld) 10.4 % Critically high 0.9-7.0 [facility] Comment on above: Performed By: #### C BC ####[facility] Wfafkkakcn2718[address] [place], [place] [address]Dr. Slick Broderick Erythrocyte distribution width (RBC) [Ratio] 14.0 % Normal 11.0-15.0 [facility] Comment on above: Performed By: #### C BC ####[facility] Ujhayitxwo734[address] [place], [place] [address]Dr. Slick Broderick Hematocrit (Bld) [Volume fraction] 26.5 % Critically low 36.0-48.0 [facility] Comment on above: Performed By: #### C BC ####[facility] Lnzaggfxyr059[address] [place], [place] [address]DrEmma Broderick Hemoglobin (Bld) [Mass/Vol] 8.4 g/dL Critically low 12.0-16.0 [facility] Comment on above: Performed By: #### C BC ####[facility] Aojnwfynib316[address] [place], [place] [address]DrEmma Broderick IG # 0.02 10e3/ul Normal 0.00-0.03 [facility] Comment on above: Performed By: #### C BC ####[facility] Uyzuhdnizi55450[address] [place], [place] [address]DrmEma Broderick IG % 0.4 % Normal 0.0-0.5 [facility] Comment on above: Performed By: #### C BC ####[facility] Lrhmfvvzuk156[address] [place], [place] [address]DrEmma Broderick LYMPH # 0.9 103/ul Critically low 1.2-3.8 [facility] Comment on above: Performed By: #### C BC ####[facility] Xyjrigrvil2494 [place] [address]Dr. Slick Broderick Lymphocytes/100 WBC (Bld) 15.6 % Critically low 20.5-60.0 [facility] Comment on above: Performed By: #### C BC ####[facility] Uwdjijozna9938 [place] [address]Dr. Slick Broderick MANUAL DIFF REQ NO Normal [facility] Comment on above: Performed By: #### C BC ####[facility] Dwlgdaragd8423 [place] [address]Dr. Slick Broderick MCH (RBC) [Entitic mass] 29.2 pg Normal 26.7-34.0 [facility] Comment on above: Performed By: #### C BC ####[facility] Fjnqjbligv614[address] [place], [place] [address]Dr. Slick Broderick MCHC (RBC) [Mass/Vol] 31.7 g/dL Normal 29.9-35.2 [facility] Comment on above: Performed By: #### C BC ####[facility] Lllscwpnnu314[address] [place], [place] [address]DrEmma Broderick MCV (RBC) [Entitic vol] 92.0 fL Normal 81.0-99.0 [facility] Comment on above: Performed By: #### C BC ####[facility] Llnrkylfnk0101[address] [place], [place] [address]Dr. Slick Broderick MONO # 0.6 103/ul Normal 0.3-0.8 [facility] Comment on above: Performed By: #### C BC ####[facility] Qcxcwoxhgb608[address] [place], [place] [address]Dr. Slick Broderick Monocytes/100 WBC (Bld) 10.1 % Normal 1.7-12.0 [facility] Comment on above: Performed By: #### C BC ####[facility] Ciywxeohnm5325[address] [place], [place] [address]DrEmma Broderick NEUT # 3.5 103/ul Normal 1.4-6.5 [facility] Comment on above: Performed By: #### C BC ####[facility] Quqzsvoajh7608 [place] [address]Dr. Slick Broderick Neutrophils/100 WBC (Bld) 63.0 % Normal 43.0-75.0 [facility] Comment on above: Performed By: #### C BC ####[facility] Dipaapngtf0121 [place] [address]Dr. Slick Broderick Platelet mean volume (Bld) [Entitic vol] 10.0 fL Normal 9.5-13.5 [facility] Comment on above: Performed By: #### C BC ####[facility] Raiqkovdrd8306 [place] [address]Dr. Meaganwendie Davie PLT 198 103/ul Normal 150-450 [facility] Comment on above: Performed By: #### C BC ####[facility] Ggbvnntisj3632 [place] [address]Dr. Slick Broderick RBC 2.88 106/ul Critically low 4.20-5.40 [facility] Comment on above: Performed By: #### C BC ####[facility] Jrqmwfeiba6102 [place] [address]Dr. Meaganwendie Davie WBC 5.6 103/ul Normal 4.0-11.0 [facility] Comment on above: Performed By: #### C BC ####[facility] Zbopivqsrh384[address] [place], [place] [address]Dr. S[address] CT HEAD WO CONon 04-22-2022 CT HEAD WO CON Normal [facility] POINT OF CARE GLUCOSEon 04-12 Glucose [Mass/Vol] 110 mg/dL Critically high 74-106 T [facility] Comment on above: Performed By: #### P OCGLUC ####[facility] Rkvkntiqvy7614 [place] [address]DrEmma Broderick PROF 14(COMP METB)on 022 Albumin [Mass/Vol] 3.0 g/dL Critically low 3.4-5.0 [facility] Comment on above: Performed By: #### C MP ####[facility] Qtamgswaba9600 [place] [address]Dr. Slick Broderick Albumin/Globulin [Mass ratio] 0.9 {ratio} Normal [facility] Comment on above: Performed By: #### C MP ####[facility] Pepizkklzf2885 [place] [address]Dr. Slick Broderick ALP [Catalytic activity/Vol] 93 U/L Normal 46-116 [facility] Comment on above: Performed By: #### C MP ####[facility] Tavfpehrtm8524 [place] [address]Dr. Slick Davie ALT [Catalytic activity/Vol] 22 U/L Normal 14-59 [facility] Comment on above: Performed By: #### C MP ####[facility] Xpqyuxgbzm573[address] [place], [place] [address]Dr. Meaganwendie Davie Anion gap [Moles/Vol] 8.9 mmol/L Normal [facility] Comment on above: Performed By: #### C MP ####[facility] Ywqlsfqjgl438[address] [place], [place] [address]Dr. Slick Davie AST [Catalytic activity/Vol] 18 U/L Normal 15-37 [facility] Comment on above: Performed By: #### C MP ####[facility] Mysktyajdt040[address] [place], [place] [address]Dr. Slick Davie Bilirubin [Mass/Vol] 0.3 mg/dL Normal 0.2-1.0 [facility] Comment on above: Performed By: #### C MP ####[facility] Npapdjcquz47110[address] [place], [place] [address]Dr. Slick Davie Calcium [Mass/Vol] 9.6 mg/dL Normal 8.5-10.1 The [facility] Comment on above: Performed By: #### C MP ####[facility] Oeptrezbyj38450[address] [place], [place] [address]Dr. Slick Broderick Chloride [Moles/Vol] 104 mmol/L Normal 98-107 [facility] Comment on above: Performed By: #### C MP ####[facility] Osmgzcksyr7036 [place] [address]Dr. Slick Broderick CO2 [Moles/Vol] 30.8 mmol/L Normal 21.0-32.0 The [facility] Comment on above: Performed By: #### C MP ####[facility] Segmfhpezl1556 [place] [id number]. Slick Broderick Creatinine [Mass/Vol] 1.73 mg/dL Critically high 0.55-1.02 [facility] Comment on above: Performed By: #### C MP ####[facility] Ziyaeydlnq4998 [place] [address]Dr. Slick Broderick EGFR-AF DANISH 35 mL/min/1.73m2 Critically low >=60 [facility] Comment on above: Performed By: #### C MP ####[facility] Vjvwroumjc7114 [place] [address]Dr. Slick Broderick EGFR-NON AF DANISH 29 mL/min/1.73m2 Critically low >=60 [facility] Comment on above: Performed By: #### C MP ####[facility] Mlxqovafml6842 [place] [address]Dr. Slick Broderick Globulin (S) [Mass/Vol] 3.4 g/dL Normal [facility] Comment on above: Performed By: #### C MP ####[facility] Dhjpdguofv6581 [place] [address]Dr. Slick Broderick Glucose [Mass/Vol] 94 mg/dL Normal 74-106 The [facility] Comment on above: Performed By: #### C MP ####[facility] Inwayqsouo9852 [place] [id number]. Slick Broderick Potassium [Moles/Vol] 4.7 mmol/L Normal 3.5-5.1 [facility] Comment on above: Performed By: #### C MP ####[facility] Vqxctzoasr4927 [place] [address]Dr. Slick Broderick Protein [Mass/Vol] 6.4 g/dL Normal 6.4-8.2 The [facility] Comment on above: Performed By: #### C MP ####[facility] Menozzofua7516 [place] [id number]. Slick Broderick Sodium [Moles/Vol] 139 mmol/L Normal 136-145 The [facility] Comment on above: Performed By: #### C MP ####[facility] Pohntsitjr3921 [place] [address]Dr. Slick Davie Urea nitrogen [Mass/Vol] 46.0 mg/dL Critically high 7.0-18.0 [facility] Comment on above: Performed By: #### C MP ####[facility] Zkcfttziow6714[address] [place], [place] [address]Dr. Slick Broderick Urea nitrogen/Creatinine [Mass ratio] 26.6 mg/mg Normal [facility] Comment on above: Performed By: #### C MP ####[facility] Mvizfcfenh3517[address] [place], [place] [address]Dr. Slick Broderick PROF CHEM 8 (BAS METB)on Anion gap [Moles/Vol] 8.6 mmol/L Normal [facility] Comment on above: Performed By: #### B MP ####[facility] Peclmekiuc6709[address] [place], [place] [address]Dr. Slick Broderick Calcium [Mass/Vol] 9.9 mg/dL Normal 8.5-10.1 The [facility] Comment on above: Performed By: #### B MP ####[facility] Atywhyugcm005[address] [place], [place] [address]Dr. Slick Broderick Chloride [Moles/Vol] 103 mmol/L Normal 98-107 [facility] Comment on above: Performed By: #### B MP ####[facility] Xmvcwyaein2948 [place] [address]Dr. Slick Broderick CO2 [Moles/Vol] 29.5 mmol/L Normal 21.0-32.0 The [facility] Comment on above: Performed By: #### B MP ####[facility] Lwgjvahouy249[address] [place], [place] [address]Dr. Slick Broderick Creatinine [Mass/Vol] 1.62 mg/dL Critically high 0.55-1.02 [facility] Comment on above: Performed By: #### B MP ####[facility] Hgfwzmyoju1236 [place] [id number]. Slick Broderick EGFR-AF DANISH 38 mL/min/1.73m2 Critically low >=60 [facility] Comment on above: Performed By: #### B MP ####[facility] Wtufpwmoie5870 [place] [id number]. Slick Davie EGFR-NON AF DANISH 31 mL/min/1.73m2 Critically low >=60 [facility] Comment on above: Performed By: #### B MP ####[facility] Uoohpvldzt2887 [place] [address]Dr. Slick Broderick Glucose [Mass/Vol] 125 mg/dL Critically high 74-106 T [facility] Comment on above: Performed By: #### B MP ####[facility] Sxobchtadk5050 [place] [address]Dr. Slick Broderick Potassium [Moles/Vol] 4.1 mmol/L Normal 3.5-5.1 [facility] Comment on above: Performed By: #### B MP ####[facility] Qeizhkrrnw6514[address] [place], [place] [address]Dr. Slick Broderick Sodium [Moles/Vol] 137 mmol/L Normal 136-145 [facility] Comment on above: Performed By: #### B MP ####[facility] Ancbdfugau1929 [place] [address]Dr. Slick Broderick Urea nitrogen [Mass/Vol] 41.0 mg/dL Critically high 7.0-18.0 [facility] Comment on above: Performed By: #### B MP ####[facility] Upbefrgaol5874 [place] [address]Dr. Slick Broderick Urea nitrogen/Creatinine [Mass ratio] 25.3 mg/mg Normal [facility] Comment on above: Performed By: #### B MP ####[facility] Yiqzbpgykf9853 [place] [address]Dr. Slick Broderick PROTIMEon 04-22-2022 INR Coag (PPP) [Relative time] 1.08 {INR} Normal [facility] Comment on above: Performed By: #### P T, PTT ####[facility] Xuvgdeeywm019[address] [place], [place] [address]Dr. Slick Broderick INR GUIDELINES SEE BELOW Normal [facility] Comment on above: Result Comment: EDMUND RED INR: 2.0 - 3.0 CONDITIONS NOT LISTED BELOW 2.5 - 3.5 FOR PROSTHETIC HEART VALVE REPLACEMENT 2.5 - 3.5 RECURRENT THROMBOSIS Performed By: #### P T, PTT ####[facility] Bomgukmhpf78110[address] [place], [place] [address]Dr. Slick Broderick PT Coag (PPP) [Time] 11.6 s Normal 9.0-11.6 [facility] Comment on above: Performed By: #### P T, PTT ####[facility] Deojnthohe994[address] [place], [place] [address]Dr. Slick Broderick PTTon 04-22-2022 aPTT Coag (Bld) [Time] 30.7 s Normal 22.3-36.2 [facility] Comment on above: Performed By: #### P T, PTT ####[facility] Ljdemlqjfl186[address] [place], [place] [address]Dr. Slick Broderick XR TIB_FIB RT 2Von 2 XR TIB_FIB RT 2V Normal The [facility] CBC AUTO DIFFon 04-21-2022 BASO # 0.0 103/ul Normal 0.0-0.1 [facility] Comment on above: Performed By: #### C BC ####[facility] Fjqfdpkxce773404 [address] [place], [place] [address]Dr. Slick Broderick Basophils/100 WBC (Bld) 0.3 % Normal 0.2-2.0 [facility] Comment on above: Performed By: #### C BC ####[facility] Ffqgkessqi673[address] [place], [place] [address]Dr. Slick Broderick EO # 0.6 103/ul Normal 0.0-0.7 [facility] Comment on above: Performed By: #### C BC ####[facility] Yszumjgtcg677[address] [place], [place] [address]Dr. Slick Broderick Eosinophils/100 WBC (Bld) 10.2 % Critically high 0.9-7.0 [facility] Comment on above: Performed By: #### C BC ####[facility] Mvnqdjjpam1395 [place] [address]Dr. Slick Broderick Erythrocyte distribution width (RBC) [Ratio] 14.2 % Normal 11.0-15.0 [facility] Comment on above: Performed By: #### C BC ####[facility] Uysgnumsqz904[address] [place], [place] [address]Dr. Slick Broderick Hematocrit (Bld) [Volume fraction] 25.5 % Critically low 36.0-48.0 [facility] Comment on above: Performed By: #### C BC ####[facility] Vqqhimzlbv05380[address] [place], [place] [address]Dr. Slick Broderick Hemoglobin (Bld) [Mass/Vol] 8.1 g/dL Critically low 12.0-16.0 [facility] Comment on above: Performed By: #### C BC ####[facility] Ecjkdupahh187[address] [place], [place] [address]Dr. Slick Broderick IG # 0.02 10e3/ul Normal 0.00-0.03 [facility] Comment on above: Performed By: #### C BC ####[facility] Ndslziyovt3824[address] [place], [place] [address]Dr. Slick Broderick IG % 0.3 % Normal 0.0-0.5 [facility] Comment on above: Performed By: #### C BC ####[facility] Fthpijnhmf109[address] [place], [place] [address]Dr. Slick Broderick LYMPH # 0.8 103/ul Critically low 1.2-3.8 [facility] Comment on above: Performed By: #### C BC ####[facility] Uwvrftwvfe0099[address] [place], [place] [address]Dr. Slick Broderick Lymphocytes/100 WBC (Bld) 13.2 % Critically low 20.5-60.0 [facility] Comment on above: Performed By: #### C BC ####[facility] Cgwoacocrd8[address] [place], [place] [address]Dr. Slick Broderick MANUAL DIFF REQ NO Normal [facility] Comment on above: Performed By: #### C BC ####[facility] Lkuflccipu7611 [place] [address]Dr. Slick Davie MCH (RBC) [Entitic mass] 29.5 pg Normal 26.7-34.0 [facility] Comment on above: Performed By: #### C BC ####[facility] Crhocqrlgb50750[address] [place], [place] [address]Dr. Slick Davie MCHC (RBC) [Mass/Vol] 31.8 g/dL Normal 29.9-35.2 [facility] Comment on above: Performed By: #### C BC ####[facility] Yicrgtkmny879[address] [place], [place] [address]Dr. Slick Broderick MCV (RBC) [Entitic vol] 92.7 fL Normal 81.0-99.0 [facility] Comment on above: Performed By: #### C BC ####[facility] Kxtwfgotgd525[address] [place], [place] [address]Dr. Slick Broderick MONO # 0.6 103/ul Normal 0.3-0.8 [facility] Comment on above: Performed By: #### C BC ####[facility] Ilekztkuud173[address] [place], [place] [address]Dr. Slick Broderick Monocytes/100 WBC (Bld) 9.2 % Normal 1.7-12.0 [facility] Comment on above: Performed By: #### C BC ####[facility] Yjxznifxsc058[address] [place], [place] [address]Dr. Slick Broderick NEUT # 4.1 103/ul Normal 1.4-6.5 [facility] Comment on above: Performed By: #### C BC ####[facility] Pxzqoourfv966[address] [place], [place] [address]Dr. Slick Broderick Neutrophils/100 WBC (Bld) 66.8 % Normal 43.0-75.0 [facility] Comment on above: Performed By: #### C BC ####[facility] Kmgpjhaevj330[address] [place], [place] [address]Dr. Slick Broderick Platelet mean volume (Bld) [Entitic vol] 9.5 fL Normal 9.5-13.5 [facility] Comment on above: Performed By: #### C BC ####[facility] Tcajesusah2734 [place] [address]Dr. Slick Broderick PLT 189 103/ul Normal 150-450 [facility] Comment on above: Performed By: #### C BC ####[facility] Vvnbdewyag6136 [place] [address]Dr. Slick Broderick RBC 2.75 106/ul Critically low 4.20-5.40 [facility] Comment on above: Performed By: #### C BC ####[facility] Lhdqvoaizp644[address] [place], [place] [address]Dr. Slick Broderick WBC 6.2 103/ul Normal 4.0-11.0 [facility] Comment on above: Performed By: #### C BC ####[facility] Ubbjsifmom0189[address] [place], [place] [address]Dr. Slick Broderick BASO # 0.1 103/ul Normal 0.0-0.1 [facility] Comment on above: Performed By: #### C BC ####[facility] Eskxucgfeq685[address] [place], [place] [address]Dr. Slick Davie Basophils/100 WBC (Bld) 0.8 % Normal 0.2-2.0 [facility] Comment on above: Performed By: #### C BC ####[facility] Tcfmlmjpwn6688 [place] [address]Dr. Slick Broderick EO # 0.8 103/ul Critically high 0.0-0.7 [facility] Comment on above: Performed By: #### C BC ####[facility] Tybqpfsdwq4779[address] [place], [place] [address]Dr. Slick Davie Eosinophils/100 WBC (Bld) 11.7 % Critically high 0.9-7.0 [facility] Comment on above: Performed By: #### C BC ####[facility] Isueywhcjx613[address] [place], [place] [address]Dr. Slick Davie Erythrocyte distribution width (RBC) [Ratio] 14.1 % Normal 11.0-15.0 [facility] Comment on above: Performed By: #### C BC ####[facility] Ftyxwbsnqz0255 [place] [address]Dr. Slick Broderick Hematocrit (Bld) [Volume fraction] 27.3 % Critically low 36.0-48.0 [facility] Comment on above: Performed By: #### C BC ####[facility] Olwjqkcjpv516[address] [place], [place] [address]Dr. Slick Broderick Hemoglobin (Bld) [Mass/Vol] 8.4 g/dL Critically low 12.0-16.0 [facility] Comment on above: Performed By: #### C BC ####[facility] Jnnbqxhvyl956[address] [place], [place] [address]Dr. Slick Broderick IG # 0.02 10e3/ul Normal 0.00-0.03 [facility] Comment on above: Performed By: #### C BC ####[facility] Rjbjpmmirx254[address] [place], [place] [address]Dr. Meaganwendie Broderick IG % 0.3 % Normal 0.0-0.5 [facility] Comment on above: Performed By: #### C BC ####[facility] Xroutgwvmu8869[address] [place], [place] [address]DrEmma Broderick LYMPH # 1.0 103/ul Critically low 1.2-3.8 [facility] Comment on above: Performed By: #### C BC ####[facility] Qetuaqerfw010[address] [place], [place] [address]DrEmma Meaganwendie Broderick Lymphocytes/100 WBC (Bld) 14.5 % Critically low 20.5-60.0 [facility] Comment on above: Performed By: #### C BC ####[facility] Yhsarwrawr994[address] [place], [place] [address]DrEmma Broderick MANUAL DIFF REQ NO Normal [facility] Comment on above: Performed By: #### C BC ####[facility] Ufxyjuxuxt1379[address] [place], [place] [address]Dr. Slick Broderick MCH (RBC) [Entitic mass] 29.2 pg Normal 26.7-34.0 [facility] Comment on above: Performed By: #### C BC ####[facility] Wbortbdugu516[address] [place], [place] [address]Dr. Slick Broderick MCHC (RBC) [Mass/Vol] 30.8 g/dL Normal 29.9-35.2 [facility] Comment on above: Performed By: #### C BC ####[facility] Bcuvasfvbc8979[address] [place], [place] [address]Dr. Meaganwendie Broderick MCV (RBC) [Entitic vol] 94.8 fL Normal 81.0-99.0 [facility] Comment on above: Performed By: #### C BC ####[facility] Mcnrhtvnpc86[address] [place], [place] [address]Dr. Slick Broderick MONO # 0.6 103/ul Normal 0.3-0.8 [facility] Comment on above: Performed By: #### C BC ####[facility] Ghtrkzhdma488[address] [place], [place] [address]Dr. Slick Broderick Monocytes/100 WBC (Bld) 9.7 % Normal 1.7-12.0 [facility] Comment on above: Performed By: #### C BC ####[facility] Dhyiwkxhjc0014[address] [place], [place] [address]Dr. Meaganwendie Davie NEUT # 4.2 103/ul Normal 1.4-6.5 [facility] Comment on above: Performed By: #### C BC ####[facility] Fsyhxjlocx769[address] [place], [place] [address]Dr. Slick Broderick Neutrophils/100 WBC (Bld) 63.0 % Normal 43.0-75.0 [facility] Comment on above: Performed By: #### C BC ####[facility] [address] [place], [place] [address]Dr. Slick Broderick Platelet mean volume (Bld) [Entitic vol] 10.0 fL Normal 9.5-13.5 [facility] Comment on above: Performed By: #### C BC ####[facility] [address] [place] [id number]. Slick Broderick PLT 210 103/ul Normal 150-450 [facility] Comment on above: Performed By: #### C BC ####[facility] [address] [place] [id number]. Slick Broderick RBC 2.88 106/ul Critically low 4.20-5.40 [facility] Comment on above: Performed By: #### C BC ####[facility] [address] [id number]. Slick Broderick WBC 6.6 103/ul Normal 4.0-11.0 [facility] Comment on above: Performed By: #### C BC ####[facility] [address] [place], [place] [address]Dr. Slick Broderikc CRPon 04-21-2022 CRP 0.4 mg/dL Normal <=1.0 [facility] Comment on above: Performed By: #### H STROPN, CRP, CMP ####[facility] Feqdivcori210[address] [place], [place] [address]Dr. Slick Broderick CT HEAD WO CONon 04-21-2022 CT HEAD WO CON Normal [facility] CULTURE BLOODon 04-21-2022 Microscopic examination of blood, culture Culture Observations: NO GROWTH AT [address] [facility] Comment on above: Performed By: #### B LDCX2 ####[facility] X[address]kco[address]he[address] [place], [place] [id number]. Slick Broderick Microscopic examination of blood, culture Culture Observations: NO GROWTH AT 5 DAYS. Normal [facility] Comment on above: Performed By: #### B LDCX1 ####[facility] Roeveclpza[address] [place] [id number]. Slick Broderick CULTURE URINEon 04-21-2022 CULTURE URINE Culture Observations : MODERATE GROWTH OF MIXED GENITAL OMAR. NO POTENTIAL PATHOGENS SEEN. Normal [facility] Comment on above: Performed By: #### U RCX ####[facility] Fpbidiqcgm[address] [place] [address]Dr. Slick Broderick Covid-19 PCR (CVDTB)on 04-12 SARS-CoV-2 (COVID-19) RNA DONNIE+probe Ql (Unsp spec) Not detected Normal NOT DETECTED [facility] Comment on above: Result Comment: When diagnostic testing is negative, the possibility of a false negative should be considered inthe context of a patient's recent exposures and the presence of clinical signs and symptomsconsistent with SARS-CoV-2.This test is not yet approved or cleared by the [place] FDA. When there are no FDA-approved or cleared tests available, and other criteria are met, FDA can make tests available under an emergency access mechanism called an Emergency Use Authorization (EUA). The EUA for this test is supported by the [place] of [employer] and Human Service's declaration that circumstances exist to justify the emergency use of in vitro diagnostics for the detection and/or diagnosis of the virus that causes COVID-19. This EUA will remain in effect for the duration of the COVID-19 declaration justifying emergency of IVDs, unless it is terminated or revoked by the FDA (after which the test may no longer be used). Performed By: #### C VDTB ####[facility] Tkyrzikcmd[address] [place], [place] [address]Dr. Slick Broderick ER URINE PROFILEon 2 Bilirubin Ql (U) Negative Normal NEGATIVE [facility] Comment on above: Performed By: #### JANIS PEDRO ####[facility] Igqpdueuib055[address] [place], [place] [address]Dr. Slick Broderick Clarity (U) CLEAR Normal CLEAR [facility] Comment on above: Performed By: #### JANIS PEDRO ####[facility] Jtirbluohl09[address] [place], [place] [address]Dr. Slick Broderick Color (U) LT. YELLOW Normal YELLOW [facility] Comment on above: Performed By: #### JANIS PEDRO ####[facility] Algqcjvyjo164[address] [place], [place] [address]Dr. Slick Broderick ERUAHD A micrscopic examination will be performed if indicated. Normal [facility] Comment on above: Performed By: #### JANIS PEDRO ####[facility] Dwehgbfdrg[address] [place] [address]Dr. Slick Broderick Glucose Ql (U) Negative Normal NEGATIVE [facility] Comment on above: Performed By: #### AMBERLY PEDRORO ####[facility] Mxlvkvncvr61[address] [place], [place] [address]Dr. Slick Broderick Hemoglobin Ql (U) Negative Normal NEGATIVE [facility] Comment on above: Performed By: #### AMOS PEDROICRO ####[facility] Maymtmfoqz837[address] [place], [place] [address]Dr. Slick Broderick Ketones Ql (U) Negative Normal NEGATIVE [facility] Comment on above: Performed By: #### AMOS PEDROICRO ####[facility] Xthbnekhsj224[address] [place], [place] [address]Dr. Slick Broderick LEUKOCYTES TRACE Abnormal NEGATIVE [facility] Comment on above: Performed By: #### AMBERLY PEDRORO ####[facility] Hyhicncjbv2019[address] [place], [place] [address]Dr. Meaganwendie Davie Nitrite Ql (U) Negative Normal NEGATIVE [facility] Comment on above: Performed By: #### AMOS PEDROICRO ####[facility] Pququhnucg5312[address] [place], [place] [address]Dr. Slick Broderick pH (U) 5.5 [pH] Normal 5-9 [facility] Comment on above: Performed By: #### AMOS PEDROICRO ####[facility] Axbaxbqtad038[address] [place], [place] [address]Dr. Slick Broderick SPEC GRAVITY 1.010 Normal 1.005-<=1.025 [facility] Comment on above: Performed By: #### AMOS PEDROICRO ####[facility] Cdnqiqipql567[address] [place], [place] [address]Dr. Slick Broderick UA PROTEIN Negative Normal NEGATIVE/ TRACE [facility] Comment on above: Performed By: #### AMOS PEDROICRO ####[facility] Pacosyltpd119[address] [place], [place] [address]Dr. Slick Broderick UR MICRO IND INDICATED Normal [facility] Comment on above: Performed By: #### E AMBERLY PLEITEZRO ####[facility] Vvlrmanmcw[address] [place] [address]Dr. Slick Broderick Urobilinogen Qn (U) 0.2 {Hiren'U}/dL Normal 0.2 - 1. [address] [facility] Comment on above: Performed By: #### E AMBERLY PLEITEZRO ####[facility] Hzhfzktacj04[address] [place] [address]Dr. Slick Broderick LACTATE/LACTIC ACIDon 2021 Lactate [Moles/Vol] 1.0 mmol/L Normal 0.4-1.9 [facility] Comment on above: Performed By: #### L ACT ####[facility] Wncjgfusxv[address] [place], [place] [address]Dr. Slick Broderick POINT OF CARE GLUCOSEon 04-12 Glucose [Mass/Vol] 109 mg/dL Critically high 74-106 [facility] Comment on above: Performed By: #### P OCGLUC ####[facility] Fawrviteaz563[address] [place], [place] [address]Dr. Slick Broderick Glucose [Mass/Vol] 93 mg/dL Normal 74-106 [facility] Comment on above: Performed By: #### P OCGLUC ####[facility] Vbhkdiqsmi468[address] [place], [place] [address]Dr. Slick Broderick Glucose [Mass/Vol] 140 mg/dL Critically high 74-106 [facility] Comment on above: Performed By: #### P OCGLUC ####[facility] Skmnynyqza224[address] [place] [address]Dr. Slick Broderick Glucose [Mass/Vol] 95 mg/dL Normal 74-106 [facility] Comment on above: Performed By: #### P OCGLUC ####[facility] Xeumqaacrr454[address] [place], [place] [address]Dr. Slick Broderick PROF 14(COMP METB)on 022 Albumin [Mass/Vol] 2.9 g/dL Critically low 3.4-5.0 [facility] Comment on above: Performed By: #### C MP ####[facility] Tsdvkuqwbl65[address] [place] [address]Dr. Slick Broderick Albumin/Globulin [Mass ratio] 0.9 {ratio} Normal [facility] Comment on above: Performed By: #### C MP ####[facility] Qnlcaqwmms1458 [place] [address]Dr. Slick Davie ALP [Catalytic activity/Vol] 87 U/L Normal 46-116 [facility] Comment on above: Performed By: #### C MP ####[facility] Bikgzhgogl[address] [place] [address]Dr. Slick Davie ALT [Catalytic activity/Vol] 21 U/L Normal 14-59 [facility] Comment on above: Performed By: #### C MP ####[facility] Gjioaymlba330[address] [place], [place] [address]Dr. Slick Broderick Anion gap [Moles/Vol] 7.7 mmol/L Normal [facility] Comment on above: Performed By: #### C MP ####[facility] Ghcfxsongv28450[address] [place], [place] [address]Dr. Slick Davie AST [Catalytic activity/Vol] 11 U/L Critically low 15-37 [facility] Comment on above: Performed By: #### C MP ####[facility] Egkeqvmaks034[address] [place], [place] [address]Dr. Slick Broderick Bilirubin [Mass/Vol] 0.2 mg/dL Normal 0.2-1.0 [facility] Comment on above: Performed By: #### C MP ####[facility] Bacomzpnep526[address] [place], [place] [address]Dr. Slick Broderick Calcium [Mass/Vol] 9.4 mg/dL Normal 8.5-10.1 The [facility] Comment on above: Performed By: #### C MP ####[facility] Myjarddyyz257[address] [place], [place] [address]Dr. Slick Broderick Chloride [Moles/Vol] 107 mmol/L Normal 98-107 [facility] Comment on above: Performed By: #### C MP ####[facility] Qdpvlemhzu075[address] [place], [place] [address]Dr. Slick Broderick CO2 [Moles/Vol] 31.2 mmol/L Normal 21.0-32.0 [facility] Comment on above: Performed By: #### C MP ####[facility] Wxlalijebh[address] [place] [address]Dr. Slick Broderick Creatinine [Mass/Vol] 2.06 mg/dL Critically high 0.55-1.02 [facility] Comment on above: Performed By: #### C MP ####[facility] Gcftqvpatf8[address] [place] [address]Dr. Slick Broderick EGFR-AF DANISH 29 mL/min/1.73m2 Critically low >=60 [facility] Comment on above: Performed By: #### C MP ####[facility] Paqxtgxpfd869[address] [place], [place] [address]Dr. Meaganwendie Davie EGFR-NON AF DANISH 24 mL/min/1.73m2 Critically low >=60 [facility] Comment on above: Performed By: #### C MP ####[facility] Emjtbopibp143[address] [place], [place] [address]Dr. Slick Davie Globulin (S) [Mass/Vol] 3.4 g/dL Normal [facility] Comment on above: Performed By: #### C MP ####[facility] Wrrzoomypo910[address] [place], [place] [address]Dr. Slick Davie Glucose [Mass/Vol] 93 mg/dL Normal 74-106 [facility] Comment on above: Performed By: #### C MP ####[facility] Hirjrkvtot655[address] [place], [place] [address]Dr. Slick Davie Potassium [Moles/Vol] 4.9 mmol/L Normal 3.5-5.1 [facility] Comment on above: Performed By: #### C MP ####[facility] Mmamuadjrl558[address] [place], [place] [address]Dr. Slick Davie Protein [Mass/Vol] 6.3 g/dL Critically low 6.4-8.2 [facility] Comment on above: Performed By: #### C MP ####[facility] Gtdrkkkfji[address] [place], [place] [address]Dr. Slick Broderick Sodium [Moles/Vol] 141 mmol/L Normal 136-145 [facility] Comment on above: Performed By: #### C MP ####[facility] Ukmituzidc[address] [place] [address]Dr. Slick Broderick Urea nitrogen [Mass/Vol] 63.0 mg/dL Critically high 7.0-18.0 [facility] Comment on above: Performed By: #### C MP ####[facility] Dsfpmlumwb18[address] [place] [address]Dr. Slick Broderick Urea nitrogen/Creatinine [Mass ratio] 30.6 mg/mg Normal [facility] Comment on above: Performed By: #### C MP ####[facility] Onwunrtzue25[address] [place] [address]Dr. Slick Broderick Albumin [Mass/Vol] 3.1 g/dL Critically low 3.4-5.0 [facility] Comment on above: Performed By: #### H STROPN, CRP, CMP ####[facility] Cqflgahljf1042 [place] [address]Dr. Slick Broderick Albumin/Globulin [Mass ratio] 0.9 {ratio} Normal [facility] Comment on above: Performed By: #### H STROPN, CRP, CMP ####[facility] Vzawvjpoan[address] [place] [address]Dr. Slick Broderick ALP [Catalytic activity/Vol] 98 U/L Normal 46-116 [facility] Comment on above: Performed By: #### H STROPN, CRP, CMP ####[facility] Kzxgbpjbij13[address] [place] [address]Dr. Slick Broderick ALT [Catalytic activity/Vol] 17 U/L Normal 14-59 [facility] Comment on above: Performed By: #### H STROPN, CRP, CMP ####[facility] Mxwcloxlwz16[address] [place] [address]Dr. Slick Broderick Anion gap [Moles/Vol] 4.3 mmol/L Normal [facility] Comment on above: Performed By: #### H STROPN, CRP, CMP ####[facility] Lziujiddyj7619 [place] [address]Dr. Slick Broderick AST [Catalytic activity/Vol] 11 U/L Critically low 15-37 [facility] Comment on above: Performed By: #### H STROPN, CRP, CMP ####[facility] Vdvhocndah16[address] [place] [address]Dr. Slick Broderick Bilirubin [Mass/Vol] 0.2 mg/dL Normal 0.2-1.0 [facility] Comment on above: Performed By: #### H STROPN, CRP, CMP ####[facility] Rdlzgjuyaz2380 [place] [address]Dr. Slick Broderick Calcium [Mass/Vol] 9.6 mg/dL Normal 8.5-10.1 [facility] Comment on above: Performed By: #### H STROPN, CRP, CMP ####[facility] Efaqowekjx939[address] [place], [place] [address]Dr. Slick Broderick Chloride [Moles/Vol] 104 mmol/L Normal 98-107 [facility] Comment on above: Performed By: #### H STROPN, CRP, CMP ####[facility] Lnorgglllx065[address] [place], [place] [address]Dr. Slick Broderick CO2 [Moles/Vol] 32.3 mmol/L Critically high 21.0-32.0 [facility] Comment on above: Performed By: #### H STROPN, CRP, CMP ####[facility] Xyiygesyjf[address] [place], [place] [address]Dr. Slick Broderick Creatinine [Mass/Vol] 2.49 mg/dL Critically high 0.55-1.02 [facility] Comment on above: Performed By: #### H STROPN, CRP, CMP ####[facility] Fzlgkoxtns37[address] [place] [address]Dr. Slick Broderick EGFR-AF DANISH 23 mL/min/1.73m2 Critically low >=60 [facility] Comment on above: Performed By: #### H STROPN, CRP, CMP ####[facility] Egzvkqtpjo26[address] [place] [address]Dr. Slick Broderick EGFR-NON AF DANISH 19 mL/min/1.73m2 Critically low >=60 [facility] Comment on above: Performed By: #### H STROPN, CRP, CMP ####[facility] Qpxuhnjlgl30[address] [place] [address]Dr. Slick Broderick Globulin (S) [Mass/Vol] 3.5 g/dL Normal [facility] Comment on above: Performed By: #### H STROPN, CRP, CMP ####[facility] Fznfcpumuj00[address] [place] [address]Dr. Slick Broderick Glucose [Mass/Vol] 112 mg/dL Critically high 74-106 [facility] Comment on above: Performed By: #### H STROPN, CRP, CMP ####[facility] Nbqywzkwjw1832 [place] [address]Dr. Slick Broderick Potassium [Moles/Vol] 4.6 mmol/L Normal 3.5-5.1 [facility] Comment on above: Performed By: #### H STROPN, CRP, CMP ####[facility] Wqqxrdksib649[address] [place], [place] [address]Dr. Slick Broderick Protein [Mass/Vol] 6.6 g/dL Normal 6.4-8.2 The [facility] Comment on above: Performed By: #### H STROPN, CRP, CMP ####[facility] Vjswblhdro28[address] [place] [address]Dr. Slick Broderick Sodium [Moles/Vol] 136 mmol/L Normal 136-145 [facility] Comment on above: Performed By: #### H STROPN, CRP, CMP ####[facility] Sqrsvxbyvv5176 [place] [address]Dr. Slick Broderick Urea nitrogen [Mass/Vol] 74.0 mg/dL Critically high 7.0-18.0 [facility] Comment on above: Performed By: #### H STROPN, CRP, CMP ####[facility] Emdboxvznk10[address] [place] [address]Dr. Slick Broderick Urea nitrogen/Creatinine [Mass ratio] 29.7 mg/mg Normal [facility] Comment on above: Performed By: #### H STROPN, CRP, CMP ####[facility] Yxyvsbojtj0445 [place] [address]Dr. Slick Broderick SED RATE WESTERGRENon 2021 SED RATE 32 mm/hr Critically high <=30 [facility] Comment on above: Performed By: #### S EDR ####[facility] Ownlsqpxtj5[address] [place] [address]Dr. Slick Broderick TROPONIN, HIGH SENSITIVITYon 04-21-2022 HSTROP 8.6 pg/mL Normal 4.0-51.3 [facility] Comment on above: Result Comment: CUT- OFF POINTS HAVE BEEN ESTABLISHED BASED ON THE FOURTH UNIVERSAL DEFINITIONS OF MYOCARDIALINFARCTION. THE UPPER REFERENCE LIMIT (URL) OF TROPONIN, DEFINED THE 99TH PERCENTILE OFcTnI DISTRIBUTION IN A REFERENCE POPULATION, HAS BEEN CONFIRMED THE DECISION THRESHOLDFOR ID DIAGNOSIS. Performed By: #### H STROPN, CRP, CMP ####[facility] Pbqjnshcua9[address] [place] [address]Dr. Slick Broderick URINE MICROSCOPIC ONLYon BACTERIA TRACE Abnormal NONE SEEN [facility] Comment on above: Performed By: #### Dennise PLEITEZ UMICRO ####[facility] Cgbnwhhyed2[address] [place] [address]Dr. Slick Broderick Bacteria identified Cx Nom (U) INDICATED Normal [facility] Comment on above: Performed By: #### Dennise PLEITEZ UMICRO ####[facility] Rjwluzxvzx8[address] [place] [address]Dr. Slick Broderick CAST NONE SEEN Normal NONE SEEN [facility] Comment on above: Performed By: #### Dennise RUFrench UMICRO ####[facility] Tgyhwlauei8[address] [place] [address]Dr. Slick Broderick Crystals LM Nom (Urine sed) NONE SEEN Normal NONE SEEN [facility] Comment on above: Performed By: #### E RUR UMICRO ####[facility] Xmhvuojajs8462 [place] [address]Dr. Slick Broderick Epithelial cells LM Ql (Urine sed) FEW Abnormal NONE SEEN /RARE [facility] Comment on above: Performed By: #### JANIS PEDRO ####[facility] Lfhqnljzdu02[address] [place] [id number]. Slick Broderick MUCOUS NONE SEEN Normal NONE SEEN [facility] Comment on above: Performed By: #### JANIS PEDRO ####[facility] Zlihkngbae22[address] [place] [id number]. Slick Broderick RBC 0-2 Normal 0-2 [facility] Comment on above: Performed By: #### JANIS PEDRO ####[facility] Gcapjjpsku0[address] [place] [address]Dr. Slick Davie WBC 5-10 Abnormal NONE SEEN [facility] Comment on above: Performed By: #### JANIS PEDRO ####[facility] Tgseailjks97[address] [place] [address]Dr. Meaganwendie Broderick XR CHEST 1 Von 04-21-2022 XR CHEST 1 V Normal [facility] CBC AUTO DIFFon 03-29-2022 BASO # 0.1 103/ul Normal 0.0-0.1 [facility] Comment on above: Performed By: #### C BC ####[facility] Mvynxerhbe39[address] [place], [place] [address]Dr. Slick Davie Basophils/100 WBC (Bld) 0.7 % Normal 0.2-2.0 [facility] Comment on above: Performed By: #### C BC ####[facility] Nrjrjiayal5155 [place] [address]Dr. Slick Davie EO # 0.4 103/ul Normal 0.0-0.7 [facility] Comment on above: Performed By: #### C BC ####[facility] Huocvssmlp3401[address] [place], [place] [address]Dr. Slick Davie Eosinophils/100 WBC (Bld) 4.8 % Normal 0.9-7.0 [facility] Comment on above: Performed By: #### C BC ####[facility] Hetmdgrayd16[address] [place], [place] [address]Dr. Slick Davie Erythrocyte distribution width (RBC) [Ratio] 13.9 % Normal 11.0-15.0 [facility] Comment on above: Performed By: #### C BC ####[facility] Cghiojpaex[address] [place] [address]DrEmma Broderick Hematocrit (Bld) [Volume fraction] 28.0 % Critically low 36.0-48.0 [facility] Comment on above: Performed By: #### C BC ####[facility] Fomsjgnlnx7500 [place] [address]DrEmma Broderick Hemoglobin (Bld) [Mass/Vol] 8.8 g/dL Critically low 12.0-16.0 [facility] Comment on above: Performed By: #### C BC ####[facility] Ljgabbqhqs975[address] [place], [place] [address]DrEmma Broderick IG # 0.05 10e3/ul Critically high 0.00-0.03 [facility] Comment on above: Performed By: #### C BC ####[facility] Ovidhtqjql409[address] [place], [place] [address]DrEmma Broderick IG % 0.7 % Critically high 0.0-0.5 [facility] Comment on above: Performed By: #### C BC ####[facility] Rxdwgcodoj5618[address] [place], [place] [address]DrEmma Broderick LYMPH # 1.0 103/ul Critically low 1.2-3.8 [facility] Comment on above: Performed By: #### C BC ####[facility] Cijznvgqyp406[address] [place], [place] [address]DrEmma Broderick Lymphocytes/100 WBC (Bld) 13.0 % Critically low 20.5-60.0 [facility] Comment on above: Performed By: #### C BC ####[facility] Zgeuhpqhlp69230[address] [place], [place] [address]DrEmma Broderick MANUAL DIFF REQ NO Normal [facility] Comment on above: Performed By: #### C BC ####[facility] Iksvcxcxwo539[address] [place], [place] [address]DrEmma Broderick MCH (RBC) [Entitic mass] 28.9 pg Normal 26.7-34.0 [facility] Comment on above: Performed By: #### C BC ####[facility] Lyzkxvmgci2496 [place] [address]DrEmma Broderick MCHC (RBC) [Mass/Vol] 31.4 g/dL Normal 29.9-35.2 [facility] Comment on above: Performed By: #### C BC ####[facility] Lfsvumunxu982[address] [place], [place] [address]DrEmma Broderick MCV (RBC) [Entitic vol] 92.1 fL Normal 81.0-99.0 [facility] Comment on above: Performed By: #### C BC ####[facility] Icsdmrbcvw758[address] [place], [place] [address]DrEmma Broderick MONO # 0.8 103/ul Normal 0.3-0.8 [facility] Comment on above: Performed By: #### C BC ####[facility] Jjsjclwgss5819[address] [place], [place] [address]DrEmma Broderick Monocytes/100 WBC (Bld) 10.7 % Normal 1.7-12.0 [facility] Comment on above: Performed By: #### C BC ####[facility] Kehaobkape67[address] [place], [place] [address]DrEmma Broderick NEUT # 5.4 103/ul Normal 1.4-6.5 [facility] Comment on above: Performed By: #### C BC ####[facility] Asosfbahhr535[address] [place], [place] [address]DrEmma Broderick Neutrophils/100 WBC (Bld) 70.1 % Normal 43.0-75.0 [facility] Comment on above: Performed By: #### C BC ####[facility] Qrcjmkjrkc14[address] [place], [place] [address]DrEmma Broderick Platelet mean volume (Bld) [Entitic vol] 8.9 fL Critically low 9.5-13.5 [facility] Comment on above: Performed By: #### C BC ####[facility] Ndimmdhgnx1915[address] [place], [place] [address]DrEmma Broderick PLT 221 103/ul Normal 150-450 [facility] Comment on above: Performed By: #### C BC ####[facility] Apdvicwsxd1428 [place] [address]Dr. Slick Broderick RBC 3.04 106/ul Critically low 4.20-5.40 [facility] Comment on above: Performed By: #### C BC ####[facility] Dmbeiprgxd0494 [place] [address]Dr. Slick Broderick WBC 7.7 103/ul Normal 4.0-11.0 [facility] Comment on above: Performed By: #### C BC ####[facility] Cxgpnnqfnj5554 [place] [address]Dr. Slick Broderick PRBC LEUKOREDUCEDon 03-29-20 PRBC LEUKOREDUCED Cross Match Result Compatible Unit Blood Type O Pos Unit Number [id number] Status Information Transfused Product ID Red Blood Cells Product Code [id number] Normal [facility] Comment on above: Performed By: #### P RBC ####[facility] Mepymbwvkx213[address] [place], [place] [address]Dr. Slick Broderick PROF CHEM 8 (BAS METB)on Anion gap [Moles/Vol] 9.6 mmol/L Normal [facility] Comment on above: Performed By: #### B MP ####[facility] Twtzkbncsl498[address] [place], [place] [address]Dr. Slick Broderick Calcium [Mass/Vol] 9.4 mg/dL Normal 8.5-10.1 [facility] Comment on above: Performed By: #### B MP ####[facility] Lxiyqzcmuw5547 [place] [address]Dr. Slick Broderick Chloride [Moles/Vol] 101 mmol/L Normal 98-107 [facility] Comment on above: Performed By: #### B MP ####[facility] Cgtgjhzjjy1234 [place] [address]Dr. Slick Broderick CO2 [Moles/Vol] 28.3 mmol/L Normal 21.0-32.0 [facility] Comment on above: Performed By: #### B MP ####[facility] Soqhyebvhe6986 [place] [address]Dr. Slick Broderick Creatinine [Mass/Vol] 1.56 mg/dL Critically high 0.55-1.02 [facility] Comment on above: Performed By: #### B MP ####[facility] Ovqnryhijf9695 [place] [address]Dr. Slick Davie EGFR-AF DANISH 39 mL/min/1.73m2 Critically low >=60 [facility] Comment on above: Performed By: #### B MP ####[facility] Qzpatxidvm3790 [place] [address]Dr. Slick Davie EGFR-NON AF DANISH 33 mL/min/1.73m2 Critically low >=60 [facility] Comment on above: Performed By: #### B MP ####[facility] Fnarhepjop028[address] [place], [place] [address]Dr. Slick Broderick Glucose [Mass/Vol] 88 mg/dL Normal 74-106 [facility] Comment on above: Performed By: #### B MP ####[facility] Easmwpxjdh306[address] [place], [place] [address]Dr. Slick Davie Potassium [Moles/Vol] 4.9 mmol/L Normal 3.5-5.1 [facility] Comment on above: Performed By: #### B MP ####[facility] Ymzwlatrsw223[address] [place], [place] [address]Dr. Slick Broderick Sodium [Moles/Vol] 134 mmol/L Critically low 136-145 [facility] Comment on above: Performed By: #### B MP ####[facility] Euifkijqdl3509 [place] [address]Dr. Slick Broderick Urea nitrogen [Mass/Vol] 50.0 mg/dL Critically high 7.0-18.0 [facility] Comment on above: Performed By: #### B MP ####[facility] Ykbfnitfej6389 [place] [address]Dr. Slick Broderick Urea nitrogen/Creatinine [Mass ratio] 32.1 mg/mg Normal [facility] Comment on above: Performed By: #### B MP ####[facility] Qrxiffiokt1166 [place] [address]Dr. Slick Broderick CBC AUTO DIFFon 03-28-2022 BASO # 0.1 103/ul Normal 0.0-0.1 [facility] Comment on above: Performed By: #### C BC ####[facility] Wjnalnlxiy9469 [place] [address]Dr. Slick Broderick Basophils/100 WBC (Bld) 0.7 % Normal 0.2-2.0 [facility] Comment on above: Performed By: #### C BC ####[facility] Kskdhccstc942[address] [place], [place] [address]Dr. Slick Broderick EO # 0.4 103/ul Normal 0.0-0.7 [facility] Comment on above: Performed By: #### C BC ####[facility] Cwgkvuptdl59[address] [place], [place] [address]Dr. Slick Davie Eosinophils/100 WBC (Bld) 5.5 % Normal 0.9-7.0 [facility] Comment on above: Performed By: #### C BC ####[facility] T[address]qxrqcqb[address] [place], [place] [address]Dr. Slick Broderick Erythrocyte distribution width (RBC) [Ratio] 13.6 % Normal 11.0-15.0 [facility] Comment on above: Performed By: #### C BC ####[facility] Lrvbsvpzvz9[address] [place], [place] [address]Dr. Slick Broderick Hematocrit (Bld) [Volume fraction] 27.9 % Critically low 36.0-48.0 [facility] Comment on above: Performed By: #### C BC ####[facility] Dtvwiriqbc50[address] [place], [place] [address]Dr. Slick Broderick Hemoglobin (Bld) [Mass/Vol] 9.0 g/dL Critically low 12.0-16.0 [facility] Comment on above: Performed By: #### C BC ####[facility] Gujxtjbilv[address] [place], [place] [address]Dr. Slick Broderick IG # 0.02 10e3/ul Normal 0.00-0.03 [facility] Comment on above: Performed By: #### C BC ####[facility] Gnsctrqxka79[address] [place] [address]DrEmma Slick Broderick IG % 0.3 % Normal 0.0-0.5 [facility] Comment on above: Performed By: #### C BC ####[facility] Zfriibihht0869 [place] [address]DrEmma Slick Davie LYMPH # 0.9 103/ul Critically low 1.2-3.8 [facility] Comment on above: Performed By: #### C BC ####[facility] Bxtyrdslvd3830 [place] [address]DrEmma Slick Davie Lymphocytes/100 WBC (Bld) 13.0 % Critically low 20.5-60.0 [facility] Comment on above: Performed By: #### C BC ####[facility] Sbfskelokk4483 [place] [address]DrEmma Meaganwendie Broderick MANUAL DIFF REQ NO Normal [facility] Comment on above: Performed By: #### C BC ####[facility] Ozwpxckkuz7249 [place] [address]DrEmma Slick Broderick MCH (RBC) [Entitic mass] 29.6 pg Normal 26.7-34.0 [facility] Comment on above: Performed By: #### C BC ####[facility] Ctiqdrofvd257[address] [place], [place] [address]Dr. Slick Davie MCHC (RBC) [Mass/Vol] 32.3 g/dL Normal 29.9-35.2 [facility] Comment on above: Performed By: #### C BC ####[facility] Cnnpwhnxgf203[address] [place], [place] [address]DrEmma Slick Davie MCV (RBC) [Entitic vol] 91.8 fL Normal 81.0-99.0 [facility] Comment on above: Performed By: #### C BC ####[facility] Ehrnurhzmf[address] [place], [place] [address]DrEmma Meaganwendie Broderick MONO # 0.7 103/ul Normal 0.3-0.8 [facility] Comment on above: Performed By: #### C BC ####[facility] Nvgodiaynu1564 [place] [address]Dr. Slick Broderick Monocytes/100 WBC (Bld) 11.1 % Normal 1.7-12.0 [facility] Comment on above: Performed By: #### C BC ####[facility] Snwkoweisg5115 [place] [id number]. Slick Broderick NEUT # 4.6 103/ul Normal 1.4-6.5 [facility] Comment on above: Performed By: #### C BC ####[facility] Lwdebwpksh8583 [place] [address]Dr. Slick Broderick Neutrophils/100 WBC (Bld) 69.4 % Normal 43.0-75.0 [facility] Comment on above: Performed By: #### C BC ####[facility] Clflzmmitl5062 [place] [address]Dr. Slick Broderick Platelet mean volume (Bld) [Entitic vol] 8.9 fL Critically low 9.5-13.5 [facility] Comment on above: Performed By: #### C BC ####[facility] Amkhhgafre1255 [place] [address]Dr. Slick Broderick PLT 216 103/ul Normal 150-450 [facility] Comment on above: Performed By: #### C BC ####[facility] Snznjxqacb0903 [place] [address]Dr. Slick Broderick RBC 3.04 106/ul Critically low 4.20-5.40 [facility] Comment on above: Performed By: #### C BC ####[facility] Aaceokuxaa3810 [place] [id number]. Slick Broderick WBC 6.7 103/ul Normal 4.0-11.0 [facility] Comment on above: Performed By: #### C BC ####[facility] Xegjerzhij7477 [place] [address]Dr. Slick Broderick BASO # 0.0 103/ul Normal 0.0-0.1 [facility] Comment on above: Performed By: #### C BC ####[facility] Rimyatqjzk5954 [place] [id number]. Slick Broderick Basophils/100 WBC (Bld) 0.5 % Normal 0.2-2.0 [facility] Comment on above: Performed By: #### C BC ####[facility] Acchsarhln3341 [place] [id number]. Slick Broderick EO # 0.4 103/ul Normal 0.0-0.7 [facility] Comment on above: Performed By: #### C BC ####[facility] Ameiuvktgk0065 [place] [id number]. Slick Broderick Eosinophils/100 WBC (Bld) 5.3 % Normal 0.9-7.0 [facility] Comment on above: Performed By: #### C BC ####[facility] Lqqvpkyckk[address] [place], [place] [address]Dr. lSick Broderick Erythrocyte distribution width (RBC) [Ratio] 12.9 % Normal 11.0-15.0 [facility] Comment on above: Performed By: #### C BC ####[facility] Nznkvdnhrv6[address] [place], [place] [address]Dr. Slick Broderick Hematocrit (Bld) [Volume fraction] 23.9 % Critically low 36.0-48.0 [facility] Comment on above: Performed By: #### C BC ####[facility] Vdtehlrsyv855[address] [place], [place] [address]Dr. Slick Broderick Hemoglobin (Bld) [Mass/Vol] 7.7 g/dL Critically low 12.0-16.0 [facility] Comment on above: Performed By: #### C BC ####[facility] Pkcckdvjyg6032 [place] [address]Dr. Slick Broderick IG # 0.04 10e3/ul Critically high 0.00-0.03 [facility] Comment on above: Performed By: #### C BC ####[facility] Oeiciosgql4031 [place] [id number]. Slick Broderick IG % 0.5 % Normal 0.0-0.5 [facility] Comment on above: Performed By: #### C BC ####[facility] Ebeeconyoh7543 [place] [id number] Broderick LYMPH # 0.9 103/ul Critically low 1.2-3.8 [facility] Comment on above: Performed By: #### C BC ####[facility] Ssqyvwofqw7997 [place] [address]DrEmma Broderick Lymphocytes/100 WBC (Bld) 11.7 % Critically low 20.5-60.0 [facility] Comment on above: Performed By: #### C BC ####[facility] Tzmmqmsbay0373 [place] [id number] Broderick MANUAL DIFF REQ NO Normal [facility] Comment on above: Performed By: #### C BC ####[facility] Ofikioixmi5656 [place] [id number] Broderick MCH (RBC) [Entitic mass] 30.1 pg Normal 26.7-34.0 [facility] Comment on above: Performed By: #### C BC ####[facility] Kbojaqcudx6936 [place] [id number]. Slick Broderick MCHC (RBC) [Mass/Vol] 32.2 g/dL Normal 29.9-35.2 [facility] Comment on above: Performed By: #### C BC ####[facility] Oywtsiuwxl1968 [place] [id number] Broderick MCV (RBC) [Entitic vol] 93.4 fL Normal 81.0-99.0 [facility] Comment on above: Performed By: #### C BC ####[facility] Qohtvsrbgl2534 [place] [id number] Broderick MONO # 0.9 103/ul Critically high 0.3-0.8 [facility] Comment on above: Performed By: #### C BC ####[facility] Himdwvtenr6356 [place] [id number] Broderick Monocytes/100 WBC (Bld) 12.0 % Normal 1.7-12.0 [facility] Comment on above: Performed By: #### C BC ####[facility] Opeehvclso8512 [place] [id number]. Slick Broderick NEUT # 5.4 103/ul Normal 1.4-6.5 [facility] Comment on above: Performed By: #### C BC ####[facility] Chiidezlig0559 [place] [phone]. Slick Broderick Neutrophils/100 WBC (Bld) 70.0 % Normal 43.0-75.0 [facility] Comment on above: Performed By: #### C BC ####[facility] Vikkdxfozm3450 [place] [id number]. Slick Broderick Platelet mean volume (Bld) [Entitic vol] 9.0 fL Critically low 9.5-13.5 [facility] Comment on above: Performed By: #### C BC ####[facility] Lpkrtfuzrz8785 [place] [address]Dr. Slick Broderick PLT 210 103/ul Normal 150-450 [facility] Comment on above: Performed By: #### C BC ####[facility] Eqxqliytmi97[address] [place], [place] [address]Dr. Slick Broderick RBC 2.56 106/ul Critically low 4.20-5.40 [facility] Comment on above: Performed By: #### C BC ####[facility] Sxznrjleji7335 [place] [id number]. Slick Broderick WBC 7.7 103/ul Normal 4.0-11.0 [facility] Comment on above: Performed By: #### C BC ####[facility] Xstehmenmy4820 [place] [id number]. Slick Broderick CULTURE URINEon 03-28-2022 CULTURE URINE Culture Observations : NO GROWTH. Normal [facility] Comment on above: Performed By: #### U RCX ####[facility] Ukjmgfulud5302 [place] [id number]. Slick Broderick Covid-19 PCR (CVDTB)on 03-12 SARS-CoV-2 (COVID-19) RNA DONNIE+probe Ql (Unsp spec) Not detected Normal NOT DETECTED [facility] Comment on above: Result Comment: When diagnostic testing is negative, the possibility of a false negative should be considered inthe context of a patient's recent exposures and the presence of clinical signs and symptomsconsistent with SARS-CoV-2.This test is not yet approved or cleared by the [place] FDA. When there are no FDA-approved or cleared tests available, and other criteria are met, FDA can make tests available under an emergency access mechanism called an Emergency Use Authorization (EUA). The EUA for this test is supported by the Production Statistical Clerk of Health and Human Service's declaration that circumstances exist to justify the emergency use of in vitro diagnostics for the detection and/or diagnosis of the virus that causes COVID-19. This EUA will remain in effect for the duration of the COVID-19 declaration justifying emergency of IVDs, unless it is terminated or revoked by the FDA (after which the test may no longer be used). Performed By: #### C VDTBH ####[facility] Mjplvhfqnx[address] [place], [place] [address]Dr. Slick Broderick IRONon 03-28-2022 Iron [Mass/Vol] 32.0 ug/dL Critically low 50.0-170.0 [facility] Comment on above: Performed By: #### I YUNIOR ####[facility] Cymdcbxcnc[address] [place], [place] [address]Dr. Slick Broderick POINT OF CARE GLUCOSEon 03-12 Glucose [Mass/Vol] 119 mg/dL Critically high 74-106 [facility] Comment on above: Performed By: #### P OCGLUC ####[facility] Jmamqcihpe8176 [place] [address]Dr. Slick Broderick Glucose [Mass/Vol] 178 mg/dL Critically high 74-106 [facility] Comment on above: Performed By: #### P OCGLUC ####[facility] Etiddiiqfh8353 [place] [address]Dr. Slick Broderick Glucose [Mass/Vol] 106 mg/dL Normal 74-106 [facility] Comment on above: Performed By: #### P OCGLUC ####[facility] Bgxrdavzui6323 [place] [id number]. Slick Broderick PROF CHEM 8 (BAS METB)on Anion gap [Moles/Vol] 9.5 mmol/L Normal [facility] Comment on above: Performed By: #### B MP ####[facility] Mwnmtcsrpw4111 [place] [id number]. Slick Broderick Calcium [Mass/Vol] 9.5 mg/dL Normal 8.5-10.1 The [facility] Comment on above: Performed By: #### B MP ####[facility] Czbryugdxt7209 [place] [address]Dr. Slick Broderick Chloride [Moles/Vol] 98 mmol/L Normal 98-107 [facility] Comment on above: Performed By: #### B MP ####[facility] Lrnmfojcmo996[address] [place], [place] [address]Dr. Slick Broderick CO2 [Moles/Vol] 28.5 mmol/L Normal 21.0-32.0 The [facility] Comment on above: Performed By: #### B MP ####[facility] Nxfncyeuua854[address] [place], [place] [address]Dr. Slick Broderick Creatinine [Mass/Vol] 1.90 mg/dL Critically high 0.55-1.02 [facility] Comment on above: Performed By: #### B MP ####[facility] Nkcycrwsig4729 [place] [address]Dr. Slick Broderick EGFR-AF DANISH 31 mL/min/1.73m2 Critically low >=60 [facility] Comment on above: Performed By: #### B MP ####[facility] Lckkeerahh3600 [place] [id number]. Slick Broderick EGFR-NON AF DANISH 26 mL/min/1.73m2 Critically low >=60 [facility] Comment on above: Performed By: #### B MP ####[facility] Eamemtnldi8424 [place] [phone]. Slick Broderick Glucose [Mass/Vol] 102 mg/dL Normal 74-106 The [facility] Comment on above: Performed By: #### B MP ####[facility] Vmdougvwvo9230 [place] [id number]. Meaganwendie Davie Potassium [Moles/Vol] 4.0 mmol/L Normal 3.5-5.1 [facility] Comment on above: Performed By: #### B MP ####[facility] Hxsxtpaupj4662 [place] [address]Dr. Slick Broderick Sodium [Moles/Vol] 132 mmol/L Critically low 136-145 [facility] Comment on above: Performed By: #### B MP ####[facility] Sirwsnizhm923[address] [place], [place] [address]Dr. Slick Broderick Urea nitrogen [Mass/Vol] 56.0 mg/dL Critically high 7.0-18.0 [facility] Comment on above: Performed By: #### B MP ####[facility] Mmpmnxirpx88110[address] [place], [place] [address]Dr. Slick Broderick Urea nitrogen/Creatinine [Mass ratio] 29.5 mg/mg Normal [facility] Comment on above: Performed By: #### B MP ####[facility] Qsusqluggq1615[address] [place], [place] [address]Dr. Slick Broderick T4on 03-28-2022 T4 [Mass/Vol] 4.90 ug/dL Normal 4.80-13.90 [facility] Comment on above: Performed By: #### T 4 ####[facility] Dbhcfgvywd836[address] [place], [place] [address]Dr. Slick Broderick TSHon 03-28-2022 TSH 2.765 uIU/mL Normal 0.358-3.740 [facility] Comment on above: Performed By: #### T SH ####[facility] Rljwridrrs113[address] [place], [place] [address]Dr. Slick Broderick TYPE AND SCREENon 03-28-2022 TYPE AND SCREEN Negative Normal [facility] Comment on above: Performed By: #### T NS ####[facility] Aeftxrxeqr422[address] [place], [place] [address]Dr. Slick Broderick UA RANDOM W/MICROSCOPICon BACTERIA NONE SEEN Normal NONE SEEN [facility] Comment on above: Performed By: #### U AMIC ####[facility] Isubbbemml816[address] [place], [place] [address]Dr. Slick Broderick Bilirubin Ql (U) Negative Normal NEGATIVE The [facility] Comment on above: Performed By: #### U AMIC ####[facility] Cnauzmfvpw1268 [place] [address]Dr. Slick Broderick CAST NONE SEEN Normal NONE SEEN [facility] Comment on above: Performed By: #### U AMIC ####[facility] Ydqfynbuwa[address] [place], [place] [address]Dr. Slick Broderick Clarity (U) CLEAR Normal CLEAR [facility] Comment on above: Performed By: #### U AMIC ####[facility] Gvtflyjmtp807[address] [place], [place] [address]Dr. Slick Broderick Color (U) LT. YELLOW Normal YELLOW [facility] Comment on above: Performed By: #### U AMIC ####[facility] Xypkeiepth145[address] [place], [place] [address]Dr. Slick Broderick Crystals LM Nom (Urine sed) NONE SEEN Normal NONE SEEN [facility] Comment on above: Performed By: #### U AMIC ####[facility] Phykexaxdd037[address] [place], [place] [address]Dr. Slick Broderick Epithelial cells LM Ql (Urine sed) FEW Abnormal NONE SEEN /RARE [facility] Comment on above: Performed By: #### U AMIC ####[facility] Mcyziyxgoj26[address] [place], [place] [address]Dr. Slick Broderick Glucose Ql (U) Negative Normal NEGATIVE [facility] Comment on above: Performed By: #### U AMIC ####[facility] Krcxrexzvj247[address] [place], [place] [address]Dr. Slick Broderick Hemoglobin Ql (U) MODERATE Abnormal NEGATIVE The [facility] Comment on above: Performed By: #### U AMIC ####[facility] Rjzyvlxtsk6639[address] [place], [place] [address]Dr. Slick Broderick Ketones Ql (U) Negative Normal NEGATIVE [facility] Comment on above: Performed By: #### U AMIC ####[facility] Shsjqxqpmt7442 [place] [address]Dr. Slick Broderick LEUKOCYTES TRACE Abnormal NEGATIVE [facility] Comment on above: Performed By: #### U AMIC ####[facility] Znzrpwmqyx8673 [place] [address]Dr. Slick Broderick MUCOUS NONE SEEN Normal NONE SEEN [facility] Comment on above: Performed By: #### U AMIC ####[facility] Iexpmvnjjz7109 [place] [address]Dr. Slick Broderick Nitrite Ql (U) Negative Normal NEGATIVE [facility] Comment on above: Performed By: #### U AMIC ####[facility] Odmyfzynea212[address] [place], [place] [address]Dr. Slick Broderick pH (U) 6.0 [pH] Normal 5-9 [facility] Comment on above: Performed By: #### U AMIC ####[facility] Isrtiorwcy244[address] [place], [place] [address]Dr. Slick Broderick RBC 5-10 Abnormal 0-2 [facility] Comment on above: Performed By: #### U AMIC ####[facility] Tciirpwsmb95[address] [place], [place] [address]Dr. Slick Broderick SPEC GRAVITY <=1.005 Abnormal 1.005-<=1.025 The [facility] Comment on above: Performed By: #### U AMIC ####[facility] Quwrqrenqq710[address] [place], [place] [address]Dr. Slick Broderick UA PROTEIN Negative Normal NEGATIVE/ TRACE [facility] Comment on above: Performed By: #### U AMIC ####[facility] Vcuylgqcze386[address] [place], [place] [address]Dr. Slick Broderick Urobilinogen Qn (U) 0.2 {Hiren'U}/dL Normal 0.2 - 1. 0 [facility] Comment on above: Performed By: #### U AMIC ####[facility] Rgukjzphis[address] [place], [place] [address]Dr. Slick Broderick WBC 2-5 Abnormal NONE SEEN [facility] Comment on above: Performed By: #### U AMIC ####[facility] Krdqkhqruk3576 [place] [address]Dr. Slick Broderick CBC AUTO DIFFon 03-27-2022 BASO # 0.0 103/ul Normal 0.0-0.1 [facility] Comment on above: Performed By: #### C BC ####[facility] Zqqkypyxhc1679[address] [place], [place] [address]Dr. Slick Davie Basophils/100 WBC (Bld) 0.5 % Normal 0.2-2.0 [facility] Comment on above: Performed By: #### C BC ####[facility] Nfrpkqolfq3039[address] [place], [place] [address]Dr. Slick Broderick EO # 0.4 103/ul Normal 0.0-0.7 [facility] Comment on above: Performed By: #### C BC ####[facility] Ybuexayntj663[address] [place], [place] [address]Dr. Slick Davie Eosinophils/100 WBC (Bld) 5.2 % Normal 0.9-7.0 [facility] Comment on above: Performed By: #### C BC ####[facility] Buwpshirle7801[address] [place], [place] [address]Dr. Slick Broderick Erythrocyte distribution width (RBC) [Ratio] 13.1 % Normal 11.0-15.0 [facility] Comment on above: Performed By: #### C BC ####[facility] Gouinsgvsz3379[address] [place], [place] [address]Dr. Slick Broderick Hematocrit (Bld) [Volume fraction] 24.7 % Critically low 36.0-48.0 [facility] Comment on above: Performed By: #### C BC ####[facility] Mwspbzvfiv934[address] [place], [place] [address]Dr. Slick Broderick Hemoglobin (Bld) [Mass/Vol] 7.9 g/dL Critically low 12.0-16.0 [facility] Comment on above: Performed By: #### C BC ####[facility] Dspxuonnwp5056 [place] [id number]. Slick Broderick IG # 0.06 10e3/ul Critically high 0.00-0.03 The [facility] Comment on above: Performed By: #### C BC ####[facility] Daypsbhxez1566 [place] [address]Dr. Slick Broderick IG % 0.8 % Critically high 0.0-0.5 The [facility] Comment on above: Performed By: #### C BC ####[facility] Depbypytus0353 [place] [address]Dr. Slick Broderick LYMPH # 0.9 103/ul Critically low 1.2-3.8 [facility] Comment on above: Performed By: #### C BC ####[facility] Invihvdndh7050 [place] [address]Dr. Slick Broderick Lymphocytes/100 WBC (Bld) 11.1 % Critically low 20.5-60.0 [facility] Comment on above: Performed By: #### C BC ####[facility] Nhdeqjfswa9[address] [place], [place] [address]Dr. Slick Broderick MANUAL DIFF REQ NO Normal [facility] Comment on above: Performed By: #### C BC ####[facility] Lpfklyqjyz405[address] [place], [place] [address]Dr. Slick Broderick MCH (RBC) [Entitic mass] 29.7 pg Normal 26.7-34.0 [facility] Comment on above: Performed By: #### C BC ####[facility] Dwgwjjvatv1617[address] [place], [place] [address]Dr. Slick Broderick MCHC (RBC) [Mass/Vol] 32.0 g/dL Normal 29.9-35.2 [facility] Comment on above: Performed By: #### C BC ####[facility] Seocrsmwto501[address] [place], [place] [address]Dr. Slick Broderick MCV (RBC) [Entitic vol] 92.9 fL Normal 81.0-99.0 [facility] Comment on above: Performed By: #### C BC ####[facility] Ebcwqvzcrt6963 [place] [id number]. Slick Broderick MONO # 0.8 103/ul Normal 0.3-0.8 [facility] Comment on above: Performed By: #### C BC ####[facility] Wqgvbweejx6332 [place] [id number]. Slick Broderick Monocytes/100 WBC (Bld) 9.5 % Normal 1.7-12.0 [facility] Comment on above: Performed By: #### C BC ####[facility] Xsuddlvmfd[address] [place], [place] [address]Dr. Slick Broderick NEUT # 5.8 103/ul Normal 1.4-6.5 [facility] Comment on above: Performed By: #### C BC ####[facility] Upibzzmlcy0924[address] [place], [place] [address]Dr. Slick Broderick Neutrophils/100 WBC (Bld) 72.9 % Normal 43.0-75.0 [facility] Comment on above: Performed By: #### C BC ####[facility] Vdxpdnejsu765[address] [place], [place] [address]Dr. Slick Broderick Platelet mean volume (Bld) [Entitic vol] 8.9 fL Critically low 9.5-13.5 [facility] Comment on above: Performed By: #### C BC ####[facility] Aburqgmwwt84[address] [place], [place] [address]Dr. Slick Broderick PLT 220 103/ul Normal 150-450 [facility] Comment on above: Performed By: #### C BC ####[facility] Pbiwyunjun36[address] [place], [place] [address]Dr. Slick Broderick RBC 2.66 106/ul Critically low 4.20-5.40 The [facility] Comment on above: Performed By: #### C BC ####[facility] Ifiwrlnxbq927[address] [place], [place] [address]Dr. Slick Broderick WBC 7.9 103/ul Normal 4.0-11.0 [facility] Comment on above: Performed By: #### C BC ####[facility] Kpubfftspg812[address] [place], [place] [address]Dr. Slick Broderick OCC BLD IMMUNO SCREENon 03-12 OCCULT BLOOD Positive Abnormal NEGATIVE [facility] Comment on above: Performed By: #### O BSCRN ####[facility] Jqfhvzqiht4753 [place] [address]Dr. Slick Broderick PROF 14(COMP METB)on 03-27-2 022 Albumin [Mass/Vol] 3.2 g/dL Critically low 3.4-5.0 [facility] Comment on above: Performed By: #### C MP ####[facility] Kfinkihkdw1667 [place] [address]Dr. Slick Broderick Albumin/Globulin [Mass ratio] 0.9 {ratio} Normal [facility] Comment on above: Performed By: #### C MP ####[facility] Stavavhbji60[address] [place], [place] [address]Dr. Slick Broderick ALP [Catalytic activity/Vol] 101 U/L Normal 46-116 [facility] Comment on above: Performed By: #### C MP ####[facility] Rbftgzdkui396[address] [place], [place] [address]Dr. Slick Broderick ALT [Catalytic activity/Vol] 28 U/L Normal 14-59 [facility] Comment on above: Performed By: #### C MP ####[facility] Txxazebojt1739[address] [place], [place] [address]Dr. Slick Broderick Anion gap [Moles/Vol] 11.5 mmol/L Normal [facility] Comment on above: Performed By: #### C MP ####[facility] Pzhtblosor0215[address] [place], [place] [address]Dr. Slick Broderick AST [Catalytic activity/Vol] 21 U/L Normal 15-37 [facility] Comment on above: Performed By: #### C MP ####[facility] Cafzcsefoy80750[address] [place], [place] [address]Dr. Slick Broderick Bilirubin [Mass/Vol] 0.2 mg/dL Normal 0.2-1.0 [facility] Comment on above: Performed By: #### C MP ####[facility] Peyipnehxk1869[address] [place], [place] [address]Dr. Slick Broderick Calcium [Mass/Vol] 9.3 mg/dL Normal 8.5-10.1 [facility] Comment on above: Performed By: #### C MP ####[facility] Frdygsussb5491 [place] [address]Dr. Slick Broderick Chloride [Moles/Vol] 93 mmol/L Critically low 98-107 [facility] Comment on above: Performed By: #### C MP ####[facility] Qucmobujoj812[address] [place], [place] [address]Dr. Slick Broderick CO2 [Moles/Vol] 27.3 mmol/L Normal 21.0-32.0 [facility] Comment on above: Performed By: #### C MP ####[facility] Wrgfvrgfzr2989[address] [place], [place] [address]Dr. Slick Broderick Creatinine [Mass/Vol] 1.98 mg/dL Critically high 0.55-1.02 [facility] Comment on above: Performed By: #### C MP ####[facility] Gbvkocuzyu480[address] [place], [place] [address]Dr. Slick Broderick EGFR-AF DANISH 30 mL/min/1.73m2 Critically low >=60 [facility] Comment on above: Performed By: #### C MP ####[facility] Zjqqpzrhcz188[address] [place], [place] [address]Dr. Slick Broderick EGFR-NON AF DANISH 25 mL/min/1.73m2 Critically low >=60 [facility] Comment on above: Performed By: #### C MP ####[facility] Qrojdipbxr62[address] [place], [place] [address]Dr. Slick Broderick Globulin (S) [Mass/Vol] 3.6 g/dL Normal [facility] Comment on above: Performed By: #### C MP ####[facility] Ylegffndut[address] [place], [place] [address]Dr. Slick Broderick Glucose [Mass/Vol] 123 mg/dL Critically high 74-106 [facility] Comment on above: Performed By: #### C MP ####[facility] Qpbzigoxhc[address] [place], [place] [address]Dr. Slick Broderick Potassium [Moles/Vol] 3.8 mmol/L Normal 3.5-5.1 [facility] Comment on above: Performed By: #### C MP ####[facility] Picqqoeqky[address] [place] [address]Dr. Slick Broderick Protein [Mass/Vol] 6.8 g/dL Normal 6.4-8.2 [facility] Comment on above: Performed By: #### C MP ####[facility] Pecnfxncwm[address] [place] [address]Dr. Slick Broderick Sodium [Moles/Vol] 128 mmol/L Critically low 136-145 [facility] Comment on above: Performed By: #### C MP ####[facility] Dinayzrkvs6[address] [place] [address]Dr. Slick Broderick Urea nitrogen [Mass/Vol] 64.0 mg/dL Critically high 7.0-18.0 [facility] Comment on above: Performed By: #### C MP ####[facility] Arraoyvlph[address] [place], [place] [address]Dr. Slick Broderick Urea nitrogen/Creatinine [Mass ratio] 32.3 mg/mg Normal [facility] Comment on above: Performed By: #### C MP ####[facility] Uywuinyemy[address] [place], [place] [address]Dr. Slick Broderick TROPONIN, HIGH SENSITIVITYon 03-27-2022 HSTROP 9.0 pg/mL Normal 4.0-51.3 [facility] Comment on above: Result Comment: CUT- OFF POINTS HAVE BEEN ESTABLISHED BASED ON THE FOURTH UNIVERSAL DEFINITIONS OF MYOCARDIALINFARCTION. THE UPPER REFERENCE LIMIT (URL) OF TROPONIN, DEFINED THE 99TH PERCENTILE OFcTnI DISTRIBUTION IN A REFERENCE POPULATION, HAS BEEN CONFIRMED THE DECISION THRESHOLDFOR ID DIAGNOSIS. Performed By: #### H STROPN ####[facility] Fivskzmoqf[address] [place], [place] [address]Dr. 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 Interface Message Text 1:32 AM EMERGENCY TRIAGE, TREAT AND TRANSPORT (ET3) DOCUMENTATION OF TELEHEALTH VISIT Date / Time: 03/24/2022 / 1:32 AM Name: Linda Nascimento : 1950 SSN: [id number] EMS Agency: [facility] [] Verbal consent obtained [x] Implied consent - patient with potential emergency medical condition requiring assessment of capacity to refuse treatment and/or transport VITAL SIGNS: see flowsheet documentation Reason for Telehealth Visit: Chief Complaint Patient presents with Fall Needed assistance to get up History of Present Ilness: 71-year-old female with history of leg weakness got up to go to the bathroom. She did not bring her walker and had a difficult time getting off the toilet. She called 911 for assistance. The medics did his sister getting up and she was able to ambulate to her lift chair she normally sits in. She has no complaints and does not want to be transported to the hospital. Additional pertinent PMHx, SocHx, FamHx: Review of Systems: Denies the following: Chest pain, new weakness, lightheadedness, shortness of breath, abdominal pain, nausea vomiting, any injury or change in standard weakness. Exam: General: Awake, no distress ENT: normocephalic, atraumatic Pulmonary: No respiratory distress Cardiovascular: Well perfused Neurologic: Oriented to person, place, time and events. Moving all extremities equally. Psychiatric: Appropriate. Good insight and judgement. Medical Decision Making: Patient only called to get assistance to get back up. Does not wish to be transported. Patient was informed that if she should have any further difficulty ambulating or other problems to call 911. Disposition Supported by Telehealth Assessment: ET3 transport decisions: Refused transport EMS Disposition Reported: Same ET3 Encounter Completed by: Chidi Conte MD Normal [facility] T4, T3U, FTI LABCORPon 02-12 Free Thyroxine Index 2.3 Normal 1.2-4.9 [facility] Comment on above: Performed By: #### T HYLC ####[facility] Pqtfjctxbd0[address] [place] [id number] Broderick T3 Uptake 31 % Normal 24-39 [facility] Comment on above: Performed By: #### T HYLC ####[facility] Lmwgdqqffo5502 [place], [place] [address]LtEmma Broderick T4 [Mass/Vol] 7.4 ug/dL Normal 4.5-12.0 [facility] Comment on above: Performed By: #### T HYLC ####[facility] Vzarjfvhxm24[address] [place] [address]DrEmma Slick Davie VIT D 25-OH LABCORPon 2021 Vitamin D, 25-Hydroxy 58.7 ng/mL Normal 30.0-100.0 [facility] Comment on above: Result Comment: Loki min D deficiency has been defined by the [facility] and an Endocrine Society practice guideline as alevel of serum 25-OH vitamin D less than 20 ng/mL (1,2).The Endocrine Society went on to further define vitamin Dinsufficiency as a level between 21 and 29 ng/mL (2).1. IOM ([place] of Medicine). 2010. Dietary reference intakes for calcium and D. [place]: The National Academies Press.2. Maryam MF, [place], Ángeal SCHAEFER, et al. Evaluation, treatment, and prevention of vitamin D deficiency: an Endocrine Society clinical practice guideline. JCEM. 2010; 96(7):1911-30. Performed By: #### V ITADLC ####[facility] Bbpypwjeow[address] [place], [place] [address]DrEmma Broderick CBC AUTO DIFFon 02-11-2022 BASO # 0.0 103/ul Normal 0.0-0.1 [facility] Comment on above: Performed By: #### C BC ####[facility] Qnekizibyl[address] [place] [address]DrEmma Broderick Basophils/100 WBC (Bld) 0.6 % Normal 0.2-2.0 [facility] Comment on above: Performed By: #### C BC ####[facility] Zausyddynm[address] [place] [address]DrEmma Broderick EO # 0.3 103/ul Normal 0.0-0.7 [facility] Comment on above: Performed By: #### C BC ####[facility] Ouxfmgpigr13[address] [place] [address]DrEmma Broderick Eosinophils/100 WBC (Bld) 4.6 % Normal 0.9-7.0 [facility] Comment on above: Performed By: #### C BC ####[facility] Ctkkcseqyq133[address] [place], [place] [address]Dr. Slick Davie Erythrocyte distribution width (RBC) [Ratio] 14.0 % Normal 11.0-15.0 [facility] Comment on above: Performed By: #### C BC ####[facility] Ehncdihccb[address] [place], [place] [address]Dr. Slick Broderick Hematocrit (Bld) [Volume fraction] 28.4 % Critically low 36.0-48.0 [facility] Comment on above: Performed By: #### C BC ####[facility] Edpjnfdutd[address] [place], [place] [address]Dr. Slick Broderick Hemoglobin (Bld) [Mass/Vol] 9.3 g/dL Critically low 12.0-16.0 [facility] Comment on above: Performed By: #### C BC ####[facility] Dlfasknbnu257[address] [place], [place] [address]Dr. Slick Broderick IG # 0.03 10e3/ul Normal 0.00-0.03 [facility] Comment on above: Performed By: #### C BC ####[facility] Xnlpfbznva90[address] [place], [place] [address]Dr. Slick Broderick IG % 0.5 % Normal 0.0-0.5 [facility] Comment on above: Performed By: #### C BC ####[facility] Pqushuclyt64[address] [place], [place] [address]DrEmma Broderick LYMPH # 0.6 103/ul Critically low 1.2-3.8 [facility] Comment on above: Performed By: #### C BC ####[facility] Xqlztmypsk845[address] [place], [place] [address]Dr. Slick Broderick Lymphocytes/100 WBC (Bld) 9.5 % Critically low 20.5-60.0 [facility] Comment on above: Performed By: #### C BC ####[facility] Xecasbsmfo190[address] [place], [place] [address]DrEmma Broderick MANUAL DIFF REQ NO Normal [facility] Comment on above: Performed By: #### C BC ####[facility] Phbpaznqzw9141 [place] [address]DrEmma Broderick MCH (RBC) [Entitic mass] 30.5 pg Normal 26.7-34.0 [facility] Comment on above: Performed By: #### C BC ####[facility] Unavbrsavh8228 [place] [address]DrEmma Broderick MCHC (RBC) [Mass/Vol] 32.7 g/dL Normal 29.9-35.2 [facility] Comment on above: Performed By: #### C BC ####[facility] Uryavvysfy[address] [place], [place] [address]DrEmma Broderick MCV (RBC) [Entitic vol] 93.1 fL Normal 81.0-99.0 [facility] Comment on above: Performed By: #### C BC ####[facility] Bfoyogizdl62[address] [place], [place] [address]DrEmma Broderick MONO # 0.6 103/ul Normal 0.3-0.8 [facility] Comment on above: Performed By: #### C BC ####[facility] Zxhtuvginw98[address] [place], [place] [address]DrEmma Broderick Monocytes/100 WBC (Bld) 8.4 % Normal 1.7-12.0 [facility] Comment on above: Performed By: #### C BC ####[facility] Cuukrgndmc[address] [place], [place] [address]DrEmma Broderick NEUT # 5.0 103/ul Normal 1.4-6.5 [facility] Comment on above: Performed By: #### C BC ####[facility] Qefpothqxm95[address] [place], [place] [address]DrEmma Broderick Neutrophils/100 WBC (Bld) 76.4 % Critically high 43.0-75.0 [facility] Comment on above: Performed By: #### C BC ####[facility] Elnfttrbpn[address] [place], [place] [address]DrEmma Broderick Platelet mean volume (Bld) [Entitic vol] 9.3 fL Critically low 9.5-13.5 [facility] Comment on above: Performed By: #### C BC ####[facility] Kafhaldues[address] [place] [address]Dr. Slick Broderick PLT 192 103/ul Normal 150-450 [facility] Comment on above: Performed By: #### C BC ####[facility] Wdocpvzlzv23[address] [place] [address]Dr. Slick Broderick RBC 3.05 106/ul Critically low 4.20-5.40 [facility] Comment on above: Performed By: #### C BC ####[facility] Upnoaltntw7605 [place] [address]Dr. Slick Broderick WBC 6.6 103/ul Normal 4.0-11.0 [facility] Comment on above: Performed By: #### C BC ####[facility] Bpcwtiazog8199 [place] [address]Dr. Slick Broderick IRONon 02-11-2022 Iron [Mass/Vol] 62.0 ug/dL Normal 50.0-170.0 [facility] Comment on above: Performed By: #### I YUNIOR ####[facility] Oqfzksmlki[address] [place], [place] [address]Dr. Slick Broderick LIPID PROFILEon 02-11-2022 CHOL-HDL RATIO NORM SEE BELOW Normal [facility] Comment on above: Result Comment: 3.3 - 4.4 LOW RISK 4.4 - 7.1 AVERAGE RISK 7.1 - 11.0 MODERATE RISK >11.0 HIGH RISK Performed By: #### C MP, LIPID, TSH ####[facility] Dftnmdojha95[address] [place] [address]Dr. Slick Broderick Cholesterol [Mass/Vol] 204 mg/dL Critically high <=200 [facility] Comment on above: Performed By: #### C MP, LIPID, TSH ####[facility] Ccdsrfbunk25[address] [place] [address]Dr. Slick Broderick Cholesterol in HDL [Mass/Vol] 53 mg/dL Normal 40-60 [facility] Comment on above: Performed By: #### C MP, LIPID, TSH ####[facility] Gpsuvauzso20[address] [place] [id number]. Slick Broderick Cholesterol in LDL [Mass/Vol] 134.0 mg/dL Normal [facility] Comment on above: Performed By: #### C MP, LIPID, TSH ####[facility] Chefvglhby8824 [place] [id number]. Slick Broderick Cholesterol.total/C holesterol in HDL [Mass ratio] 3.8 {ratio} Normal [facility] Comment on above: Performed By: #### C MP, LIPID, TSH ####[facility] Wbbkunfwdg5696 [place] [id number]. Slick Broderick HDL NORMAL > or = 60 mg/dl - LO W CARDIOVASCULAR RISK <40 mg/dl - HIGH CARDIOVASCULAR RISK Normal [facility] Comment on above: Performed By: #### C MP, LIPID, TSH ####[facility] Nbpsduprfj2248 [place] [address]Dr. Slick Broderick LDL CALC NORMAL SEE BELOW Normal [facility] Comment on above: Result Comment: <100 mg/dl OPTIMAL 100 - 129 mg/dl NEAR OR ABOVE OPTIMAL 130 - 159 mg/dl BORDERLINE HIGH 160 - 189 mg/dl HIGH >190 mg/dl VERY HIGH Performed By: #### C MP, LIPID, TSH ####[facility] Ctkitssnns1647 [place] [id number]. Slick Broderick Triglyceride [Mass/Vol] 85 mg/dL Normal <=150 [facility] Comment on above: Performed By: #### C MP, LIPID, TSH ####[facility] Uemduqzjrx1863 [place] [id number]. Slick Broderick VLDL CALC 17.0 mg/dL Normal [facility] Comment on above: Performed By: #### C MP, LIPID, TSH ####[facility] Nkqvvaehkl0257 [place] [id number]. Slick Broderick PROF 14(COMP METB)on 022 Albumin [Mass/Vol] 3.5 g/dL Normal 3.4-5.0 The [facility] Comment on above: Performed By: #### C MP, LIPID, TSH ####[facility] Dxjluqwopg2512 [place] [address]Dr. Slick Broderick Albumin/Globulin [Mass ratio] 0.9 {ratio} Normal [facility] Comment on above: Performed By: #### C MP, LIPID, TSH ####[facility] Odqfijoahq9238 [place] [address]Dr. Slick Broderick ALP [Catalytic activity/Vol] 93 U/L Normal 46-116 [facility] Comment on above: Performed By: #### C MP, LIPID, TSH ####[facility] Vmhmimzvlb4092 [place] [address]Dr. Slick Broderick ALT [Catalytic activity/Vol] 21 U/L Normal 14-59 [facility] Comment on above: Performed By: #### C MP, LIPID, TSH ####[facility] Verhfsppel[address] [place], [place] [address]Dr. Slick Broderick Anion gap [Moles/Vol] 13.7 mmol/L Normal [facility] Comment on above: Performed By: #### C MP, LIPID, TSH ####[facility] Xyzusfqavw[address] [place], [place] [address]Dr. Slick Broderick AST [Catalytic activity/Vol] 13 U/L Critically low 15-37 [facility] Comment on above: Performed By: #### C MP, LIPID, TSH ####[facility] Wviafyykxm1474 [place] [address]Dr. Slick Broderick Bilirubin [Mass/Vol] 0.4 mg/dL Normal 0.2-1.0 [facility] Comment on above: Performed By: #### C MP, LIPID, TSH ####[facility] Sibvwjnhnz[address] [place], [place] [address]Dr. Slick Broderick Calcium [Mass/Vol] 9.2 mg/dL Normal 8.5-10.1 [facility] Comment on above: Performed By: #### C MP, LIPID, TSH ####[facility] Rpavgxczvn036[address] [place], [place] [address]Dr. Slick Broderick Chloride [Moles/Vol] 96 mmol/L Critically low 98-107 [facility] Comment on above: Performed By: #### C MP, LIPID, TSH ####[facility] Jkktbiwryg5093 [place] [address]Dr. Slick Broderick CO2 [Moles/Vol] 27.8 mmol/L Normal 21.0-32.0 The [facility] Comment on above: Performed By: #### C MP, LIPID, TSH ####[facility] Nuocmumorv0261 [place] [address]Dr. Slick Broderick Creatinine [Mass/Vol] 1.52 mg/dL Critically high 0.55-1.02 [facility] Comment on above: Performed By: #### C MP, LIPID, TSH ####[facility] Gwhvsdvwpa8238 [place] [address]Dr. Slick Broderick EGFR-AF DANISH 41 mL/min/1.73m2 Critically low >=60 [facility] Comment on above: Performed By: #### C MP, LIPID, TSH ####[facility] Vsdmrtgjjg4648 [place] [address]Dr. Slick Broderick EGFR-NON AF DANISH 34 mL/min/1.73m2 Critically low >=60 [facility] Comment on above: Performed By: #### C MP, LIPID, TSH ####[facility] Yirksvqpus6444 [place] [address]Dr. Slick Broderick Globulin (S) [Mass/Vol] 3.7 g/dL Normal [facility] Comment on above: Performed By: #### C MP, LIPID, TSH ####[facility] Lukakptdvk0867 [place] [address]Dr. Slick Broderick Glucose [Mass/Vol] 96 mg/dL Normal 74-106 The [facility] Comment on above: Performed By: #### C MP, LIPID, TSH ####[facility] Hdssftpzsw7739 [place] [address]Dr. Slick Broderick Potassium [Moles/Vol] 4.5 mmol/L Normal 3.5-5.1 [facility] Comment on above: Performed By: #### C MP, LIPID, TSH ####[facility] Kgaynhpbex5766 [place] [address]Dr. Slick Broderick Protein [Mass/Vol] 7.2 g/dL Normal 6.4-8.2 [facility] Comment on above: Performed By: #### C MP, LIPID, TSH ####[facility] Kxkjtevdsx2089 [place] [address]Dr. Slick Broderick Sodium [Moles/Vol] 133 mmol/L Critically low 136-145 [facility] Comment on above: Performed By: #### C MP, LIPID, TSH ####[facility] Umgzoksyug8174 [place] [address]Dr. Slick Broderick Urea nitrogen [Mass/Vol] 37.0 mg/dL Critically high 7.0-18.0 [facility] Comment on above: Performed By: #### C MP, LIPID, TSH ####[facility] Mtvnrzrmfq[address] [place], [place] [address]Dr. Slick Broderick Urea nitrogen/Creatinine [Mass ratio] 24.3 mg/mg [facility] Comment on above: Performed By: #### C MP, LIPID, TSH ####[facility] Xffwwenlln[address] [place], [place] [address]Dr. Slick Broderick TSHon 02-11-2022 TSH 3.993 uIU/mL Critically high 0.358-3.740 [facility] Comment on above: Performed By: #### C MP, LIPID, TSH ####[facility] Wqudrxyhqs[address] [place], [place] [address]Dr. Slick Broderick PRBC LEUKOREDUCEDon 12-18-19 PRBC LEUKOREDUCED Normal [facility] Comment on above: Performed By: #### P RBC ####[facility] Ibfxtboddq196[address] [place], [place] [address]Dr. Slick Broderick PRBC LEUKOREDUCED Cross Match Result Compatible Unit Blood Type O Pos Unit Number [id number] Status Information Transfused Product ID Red Blood Cells Product Code [id number] Normal [facility] Comment on above: Performed By: #### P RBC ####[facility] Frnkjknapi[address] [place], [place] [address]Dr. Slick Broderick H PYLORI ANTIBODY IGGon H. PYLORI IGG ABS 0.18 Index Value Normal 0.00-0.79 [facility] Comment on above: Result Comment: Nega tive <0.80 Equivocal 0.80 - 0.89 Positive >0.89 Performed By: #### H PYLLC ####[facility] Wpytyilvkn06[address] [place], [place] [address]Dr. Slick Broderick BNPon 12-14-2021 Natriuretic peptide B (Bld) [Mass/Vol] 846.0 pg/mL Normal <=900.0 [facility] Comment on above: Performed By: #### C MP, BNP ####[facility] Mwqfjpejvx88[address] [place], [place] [address]Dr. Slick Broderick CBC AUTO DIFFon 12-14-2021 BASO # 0.1 103/ul Normal 0.0-0.1 [facility] Comment on above: Performed By: #### C BC ####[facility] Sgbctkgfbx[address] [place], [place] [address]Dr. Slick Broderick Basophils/100 WBC (Bld) 0.7 % Normal 0.2-2.0 [facility] Comment on above: Performed By: #### C BC ####[facility] Uetouptami[address] [place], [place] [address]Dr. Slick Broderick EO # 0.3 103/ul Normal 0.0-0.7 [facility] Comment on above: Performed By: #### C BC ####[facility] Mrfkisboai99[address] [place], [place] [address]Dr. Slick Broderick Eosinophils/100 WBC (Bld) 4.6 % Normal 0.9-7.0 [facility] Comment on above: Performed By: #### C BC ####[facility] Ougmjnrauc[address] [place], [place] [address]Dr. Slick Broderick Erythrocyte distribution width (RBC) [Ratio] 20.0 % Critically high 11.0-15.0 [facility] Comment on above: Performed By: #### C BC ####[facility] Vboxlsjgrw[address] [place] [address]Dr. Slick Broderick Hematocrit (Bld) [Volume fraction] 29.1 % Critically low 36.0-48.0 [facility] Comment on above: Performed By: #### C BC ####[facility] Qdkgcbsszk6683 [place] [address]Dr. Meaganwendie Broderick Hemoglobin (Bld) [Mass/Vol] 9.1 g/dL Critically low 12.0-16.0 [facility] Comment on above: Performed By: #### C BC ####[facility] Sgwipbqegt87[address] [place], [place] [address]Dr. Slick Broderick IG # 0.06 10e3/ul Critically high 0.00-0.03 [facility] Comment on above: Performed By: #### C BC ####[facility] Jllxdpjydg[address] [place], [place] [address]Dr. Slick Broderick IG % 0.9 % Critically high 0.0-0.5 [facility] Comment on above: Performed By: #### C BC ####[facility] Qftlzuatwt42[address] [place], [place] [address]Dr. Slick Broderick LYMPH # 0.8 103/ul Critically low 1.2-3.8 [facility] Comment on above: Performed By: #### C BC ####[facility] Npuilrnnme2779 [place] [address]Dr. Slick Broderick Lymphocytes/100 WBC (Bld) 11.2 % Critically low 20.5-60.0 [facility] Comment on above: Performed By: #### C BC ####[facility] Gpvenjpstn[address] [place], [place] [address]Dr. Slick Broderick MANUAL DIFF REQ NO Normal [facility] Comment on above: Performed By: #### C BC ####[facility] Vifyxdjrbu[address] [place], [place] [address]Dr. Slick Broderick MCH (RBC) [Entitic mass] 30.5 pg Normal 26.7-34.0 [facility] Comment on above: Performed By: #### C BC ####[facility] Qtddyvztig2940 [place] [id number]. Slick Broderick MCHC (RBC) [Mass/Vol] 31.3 g/dL Normal 29.9-35.2 [facility] Comment on above: Performed By: #### C BC ####[facility] Wgazwwwjqy6313 [place] [id number]. Slick Broderick MCV (RBC) [Entitic vol] 97.7 fL Normal 81.0-99.0 [facility] Comment on above: Performed By: #### C BC ####[facility] Ivqrgtckli4826 [place] [id number]. Slick Broderick MONO # 0.7 103/ul Normal 0.3-0.8 [facility] Comment on above: Performed By: #### C BC ####[facility] Tgqfbsqukk405[address] [place], [place] [address]Dr. Slick Broderick Monocytes/100 WBC (Bld) 9.7 % Normal 1.7-12.0 [facility] Comment on above: Performed By: #### C BC ####[facility] Nezlxazdcd94[address] [place], [place] [address]Dr. Meaganwendie Broderick NEUT # 4.9 103/ul Normal 1.4-6.5 [facility] Comment on above: Performed By: #### C BC ####[facility] Yxqqjlmsyz[address] [place], [place] [address]Dr. Slick Broderick Neutrophils/100 WBC (Bld) 72.9 % Normal 43.0-75.0 [facility] Comment on above: Performed By: #### C BC ####[facility] Zeilhvicqs8[address] [place], [place] [address]Dr. Slick Broderick Platelet mean volume (Bld) [Entitic vol] 8.9 fL Critically low 9.5-13.5 [facility] Comment on above: Performed By: #### C BC ####[facility] Dgmoiccotm[address] [place], [place] [address]Dr. Slick Broderick PLT 239 103/ul Normal 150-450 [facility] Comment on above: Performed By: #### C BC ####[facility] Smggsosyat1624 [place], [place] [address]Vz. Slick Broderick RBC 2.98 106/ul Critically low 4.20-5.40 [facility] Comment on above: Performed By: #### C BC ####[facility] Csgmjpkqix7949 [place], [place] [address]Ct. Slick Broderick WBC 6.8 103/ul Normal 4.0-11.0 [facility] Comment on above: Performed By: #### C BC ####[facility] Iuozoagqty0298 [place] [id number]. Slick Broderick BASO # 0.1 103/ul Normal 0.0-0.1 [facility] Comment on above: Performed By: #### C BC ####[facility] Fypgvmztdn3221 [place] [id number]. Slick Broderick Basophils/100 WBC (Bld) 0.9 % Normal 0.2-2.0 [facility] Comment on above: Performed By: #### C BC ####[facility] Dndfzjfofz5924 [place] [id number]. Slick Broderick EO # 0.3 103/ul Normal 0.0-0.7 [facility] Comment on above: Performed By: #### C BC ####[facility] Oqlmvgopzq9137 [place] [id number]. Slick Broderick Eosinophils/100 WBC (Bld) 4.9 % Normal 0.9-7.0 [facility] Comment on above: Performed By: #### C BC ####[facility] Qfxkjrrvtf1270 [place] [id number]. Slick Broderick Erythrocyte distribution width (RBC) [Ratio] 20.3 % Critically high 11.0-15.0 [facility] Comment on above: Performed By: #### C BC ####[facility] Mhatsqnnck0092 [place] [id number]. Slick Broderick Hematocrit (Bld) [Volume fraction] 27.6 % Critically low 36.0-48.0 [facility] Comment on above: Performed By: #### C BC ####[facility] Umzuzxffvl7096 [place] [id number]. Slick Broderick Hemoglobin (Bld) [Mass/Vol] 8.7 g/dL Critically low 12.0-16.0 [facility] Comment on above: Performed By: #### C BC ####[facility] Znithtsxiv6199 [place] [id number]. Slick Broderick IG # 0.05 10e3/ul Critically high 0.00-0.03 [facility] Comment on above: Performed By: #### C BC ####[facility] Orszujcacg1922 [place] [id number]. Slick Broderick IG % 0.7 % Critically high 0.0-0.5 [facility] Comment on above: Performed By: #### C BC ####[facility] Wzwhvziscd[address] [place], [place] [address]Dr. Slick Broderick LYMPH # 0.9 103/ul Critically low 1.2-3.8 [facility] Comment on above: Performed By: #### C BC ####[facility] Mszxonnanx6836 [place] [address]Dr. Slick Broderick Lymphocytes/100 WBC (Bld) 13.1 % Critically low 20.5-60.0 [facility] Comment on above: Performed By: #### C BC ####[facility] Fjmhwskzjy4722 [place] [address]Dr. Slick Broderick MANUAL DIFF REQ NO Normal [facility] Comment on above: Performed By: #### C BC ####[facility] Iziyeyvaxt[address] [place], [place] [address]Dr. Slick Broderick MCH (RBC) [Entitic mass] 31.0 pg Normal 26.7-34.0 [facility] Comment on above: Performed By: #### C BC ####[facility] Itjdeuqlpe8727 [place] [address]Dr. Slick Broderick MCHC (RBC) [Mass/Vol] 31.5 g/dL Normal 29.9-35.2 [facility] Comment on above: Performed By: #### C BC ####[facility] Bdrqmusllr0223 [place] [id number]. Slick Broderick MCV (RBC) [Entitic vol] 98.2 fL Normal 81.0-99.0 [facility] Health Comment on above: Performed By: #### C BC ####[facility] Babslxlyae7[address] [place] [id number]. Slick Broderick MONO # 0.8 103/ul Normal 0.3-0.8 [facility] Comment on above: Performed By: #### C BC ####[facility] Xxhfeczjkk6424 [place] [id number]. Slick Broderick Monocytes/100 WBC (Bld) 11.4 % Normal 1.7-12.0 [facility] Comment on above: Performed By: #### C BC ####[facility] Sagmcjgobq[address] [place], [place] [address]Dr. Slick Broderick NEUT # 4.8 103/ul Normal 1.4-6.5 [facility] Comment on above: Performed By: #### C BC ####[facility] Mrqmfvslrb9[address] [place], [place] [id number]. Slick Broderick Neutrophils/100 WBC (Bld) 69.0 % Normal 43.0-75.0 [facility] Comment on above: Performed By: #### C BC ####[facility] Glsahkrexg[address] [place], [place] [address]Dr. Slick Broderick Platelet mean volume (Bld) [Entitic vol] 9.3 fL Critically low 9.5-13.5 [facility] Comment on above: Performed By: #### C BC ####[facility] Moprzvusrt[address] [place], [place] [address]Dr. Slick Broderick PLT 229 103/ul Normal 150-450 [facility] Comment on above: Performed By: #### C BC ####[facility] Aqbiyfqaxj[address] [place], [place] [address]Dr. Slick Broderick RBC 2.81 106/ul Critically low 4.20-5.40 [facility] Comment on above: Performed By: #### C BC ####[facility] Fchcxcdeim97[address] [place] [address]Dr. Slick Broderick WBC 7.0 103/ul Normal 4.0-11.0 [facility] Comment on above: Performed By: #### C BC ####[facility] Dctewdzvbl2391 [place] [address]Dr. Slick Broderick POINT OF CARE GLUCOSEon 07 Glucose [Mass/Vol] 255 mg/dL Critically high 74-106 T [facility] Comment on above: Performed By: #### P OCGLUC ####[facility] Szxkfevwfw1685 [place] [address]Dr. Slick Broderick PROF 14(COMP METB)on 022 Albumin [Mass/Vol] 2.3 g/dL Critically low 3.4-5.0 [facility] Comment on above: Performed By: #### C MP, BNP ####[facility] Mysrvujylo80[address] [place] [address]Dr. Slick Broderick Albumin/Globulin [Mass ratio] 0.6 {ratio} Normal [facility] Comment on above: Performed By: #### C MP, BNP ####[facility] Lrbnfaehei2310 [place] [address]Dr. Slick Broderick ALP [Catalytic activity/Vol] 94 U/L Normal 46-116 [facility] Comment on above: Performed By: #### C MP, BNP ####[facility] Foqalerfqz8449 [place] [address]Dr. Slick Broderick ALT [Catalytic activity/Vol] 17 U/L Normal 14-59 [facility] Comment on above: Performed By: #### C MP, BNP ####[facility] Qlcvlnhgjs3512 [place] [address]Dr. Slick Broderick Anion gap [Moles/Vol] 11.6 mmol/L Normal [facility] Comment on above: Performed By: #### C MP, BNP ####[facility] Inlwoponir1477 [place] [address]Dr. Slick Broderick AST [Catalytic activity/Vol] 13 U/L Critically low 15-37 [facility] Comment on above: Performed By: #### C MP, BNP ####[facility] Npyefjdhvl8707 [place] [address]Dr. Slick Davie Bilirubin [Mass/Vol] 0.3 mg/dL Normal 0.2-1.0 [facility] Comment on above: Performed By: #### C MP, BNP ####[facility] Vngcprsxrb457[address] [place], [place] [address]Dr. Slick Broderick Calcium [Mass/Vol] 7.9 mg/dL Critically low 8.5-10.1 Th e [facility] Comment on above: Performed By: #### C MP, BNP ####[facility] Uidldwnptl1712[address] [place], [place] [address]Dr. Meaganwendie Broderick Chloride [Moles/Vol] 104 mmol/L Normal 98-107 [facility] Comment on above: Performed By: #### C MP, BNP ####[facility] Xswlovsacj475[address] [place], [place] [address]Dr. Meaganwendie Broderick CO2 [Moles/Vol] 25.1 mmol/L Normal 21.0-32.0 The [facility] Comment on above: Performed By: #### C MP, BNP ####[facility] Uszjdvizvj8824[address] [place], [place] [address]Dr. Meaganwendie Broderick Creatinine [Mass/Vol] 1.64 mg/dL Critically high 0.55-1.02 [facility] Comment on above: Performed By: #### C MP, BNP ####[facility] Tfivtoprmr408[address] [place], [place] [address]Dr. Slick Davie EGFR-AF DANISH 37 mL/min/1.73m2 Critically low >=60 [facility] Comment on above: Performed By: #### C MP, BNP ####[facility] Eofbpelngi380[address] [place], [place] [address]Dr. Slick Broderick EGFR-NON AF DANISH 31 mL/min/1.73m2 Critically low >=60 [facility] Comment on above: Performed By: #### C MP, BNP ####[facility] Sezwcwjhij026[address] [place], [place] [address]Dr. Slick Broderick Globulin (S) [Mass/Vol] 3.6 g/dL Normal [facility] Comment on above: Performed By: #### C MP, BNP ####[facility] Ellvpwfppp8348 [place] [address]Dr. Slick Broderick Glucose [Mass/Vol] 100 mg/dL Normal 74-106 [facility] Comment on above: Performed By: #### C MP, BNP ####[facility] Braszcdlyl3700 [place] [address]Dr. Slick Broderick Potassium [Moles/Vol] 4.7 mmol/L Normal 3.5-5.1 [facility] Comment on above: Performed By: #### C MP, BNP ####[facility] Taydvggrwt100[address] [place], [place] [address]Dr. Slick Broderick Protein [Mass/Vol] 5.9 g/dL Critically low 6.4-8.2 Th [facility] Comment on above: Performed By: #### C MP, BNP ####[facility] Ozlceyyiuz476[address] [place], [place] [address]Dr. Slick Broderick Sodium [Moles/Vol] 136 mmol/L Normal 136-145 The [facility] Comment on above: Performed By: #### C MP, BNP ####[facility] Iartdegwwp8339[address] [place], [place] [address]Dr. Slick Broderick Urea nitrogen [Mass/Vol] 27.0 mg/dL Critically high 7.0-18.0 [facility] Comment on above: Performed By: #### C MP, BNP ####[facility] Daejxztynx937[address] [place], [place] [address]Dr. Slick Broderick Urea nitrogen/Creatinine [Mass ratio] 16.5 mg/mg Normal [facility] Comment on above: Performed By: #### C MP, BNP ####[facility] Xvuawgshcr974[address] [place], [place] [address]Dr. Slick Broderick CBC AUTO DIFFon 12-13-2021 BASO # 0.0 103/ul Normal 0.0-0.1 [facility] Comment on above: Performed By: #### C BC ####[facility] Deldedbrnj0703 [place] [id number]. Slick Broderick Basophils/100 WBC (Bld) 0.5 % Normal 0.2-2.0 [facility] Comment on above: Performed By: #### C BC ####[facility] Cnqpsofeav2032 [place] [id number]. Slick Broderick EO # 0.3 103/ul Normal 0.0-0.7 [facility] Comment on above: Performed By: #### C BC ####[facility] Gxdrmyomhg4558 [place] [id number]. Slick Broderick Eosinophils/100 WBC (Bld) 4.4 % Normal 0.9-7.0 [facility] Comment on above: Performed By: #### C BC ####[facility] Qemsvjhiau5749[address] [place], [place] [address]Dr. Slick Broderick Erythrocyte distribution width (RBC) [Ratio] 20.5 % Critically high 11.0-15.0 [facility] Comment on above: Performed By: #### C BC ####[facility] Pguuskrwza2[address] [place], [place] [address]Dr. Slick Broderick Hematocrit (Bld) [Volume fraction] 29.5 % Critically low 36.0-48.0 [facility] Comment on above: Performed By: #### C BC ####[facility] Rqaquouhbg1052 [place] [id number]. Slick Broderick Hemoglobin (Bld) [Mass/Vol] 9.3 g/dL Critically low 12.0-16.0 [facility] Comment on above: Result Comment: post transfusion Performed By: #### C BC ####[facility] Sgslpuyzks2442 [place] [id number]. Slick Broderick IG # 0.07 10e3/ul Critically high 0.00-0.03 [facility] Comment on above: Performed By: #### C BC ####[facility] Ddhgqlnhov1964 [place] [id number]. Slick Broderick IG % 0.9 % Critically high 0.0-0.5 [facility] Comment on above: Performed By: #### C BC ####[facility] Kcnvbqgrji2822 [place] [id number]. Meaganwendie Davie LYMPH # 0.9 103/ul Critically low 1.2-3.8 [facility] Comment on above: Performed By: #### C BC ####[facility] Qwspofpent6319 [place] [id number]. Slick Broderick Lymphocytes/100 WBC (Bld) 11.5 % Critically low 20.5-60.0 [facility] Comment on above: Performed By: #### C BC ####[facility] Knxyedygtc6311 [place] [id number]. Slick Broderick MANUAL DIFF REQ NO Normal [facility] Comment on above: Performed By: #### C BC ####[facility] Vrirckkull1770 [place] [phone]. Slick Broderick MCH (RBC) [Entitic mass] 30.9 pg Normal 26.7-34.0 [facility] Comment on above: Performed By: #### C BC ####[facility] Yrfwlpgaym0374 [place] [id number]. Slick Broderick MCHC (RBC) [Mass/Vol] 31.5 g/dL Normal 29.9-35.2 [facility] Comment on above: Performed By: #### C BC ####[facility] Kjmopmfozd2189 [place] [id number]. Slick Broderick MCV (RBC) [Entitic vol] 98.0 fL Normal 81.0-99.0 [facility] Comment on above: Performed By: #### C BC ####[facility] Yulxfkeaih2172 [place] [id number]. Slick Broderick MONO # 0.6 103/ul Normal 0.3-0.8 [facility] Comment on above: Performed By: #### C BC ####[facility] Xypskxjecr7475 [place] [id number]. Slick Broderick Monocytes/100 WBC (Bld) 8.6 % Normal 1.7-12.0 [facility] Comment on above: Performed By: #### C BC ####[facility] Udnicqzdgl2752 [place] [id number]. Slick Broderick NEUT # 5.5 103/ul Normal 1.4-6.5 [facility] Comment on above: Performed By: #### C BC ####[facility] Bzwexgpbwb6809 [place] [id number]. Slick Broderick Neutrophils/100 WBC (Bld) 74.1 % Normal 43.0-75.0 [facility] Comment on above: Performed By: #### C BC ####[facility] Pdvpykqztn8165 [place] [id number]. Slick Broderick Platelet mean volume (Bld) [Entitic vol] 9.0 fL Critically low 9.5-13.5 [facility] Comment on above: Performed By: #### C BC ####[facility] Aghkqflelg9272 [place] [address]Dr. Slick Broderick PLT 231 103/ul Normal 150-450 [facility] Comment on above: Performed By: #### C BC ####[facility] Bzdjlaiuti3680 [place] [id number]. Slick Broderick RBC 3.01 106/ul Critically low 4.20-5.40 [facility] Comment on above: Performed By: #### C BC ####[facility] Aqojwynhks4715 [place] [address]Dr. Slick Broderick WBC 7.5 103/ul Normal 4.0-11.0 [facility] Comment on above: Performed By: #### C BC ####[facility] Upyukuujeb[address] [place], [place] [address]Dr. Slick Broderick BASO # 0.0 103/ul Normal 0.0-0.1 [facility] Comment on above: Performed By: #### C BC ####[facility] Vhpuhvvsmp9838 [place] [id number]. Slick Broderick Basophils/100 WBC (Bld) 0.3 % Normal 0.2-2.0 [facility] Comment on above: Performed By: #### C BC ####[facility] Umdoifilop6067 [place] [id number]. Slick Broderick EO # 0.3 103/ul Normal 0.0-0.7 [facility] Comment on above: Performed By: #### C BC ####[facility] Paxcavtbgl6909 [place] [id number]. Slick Broderick Eosinophils/100 WBC (Bld) 3.8 % Normal 0.9-7.0 [facility] Comment on above: Performed By: #### C BC ####[facility] Mnjsbjnifr9546 [place] [address]Dr. Slick Broderick Erythrocyte distribution width (RBC) [Ratio] 17.4 % Critically high 11.0-15.0 [facility] Comment on above: Performed By: #### C BC ####[facility] Zjksahexdh355[address] [place], [place] [address]Dr. Slick Broderick Hematocrit (Bld) [Volume fraction] 22.4 % Critically low 36.0-48.0 [facility] Comment on above: Result Comment: Test Repeated Critical Value Verified Performed By: #### C BC ####[facility] Krjmaljqkz234[address] [place], [place] [address]Dr. Slick Broderick Hemoglobin (Bld) [Mass/Vol] 7.1 g/dL Critically low 12.0-16.0 [facility] Comment on above: Performed By: #### C BC ####[facility] Nfbpauzzoa6082 [place] [address]Dr. Slick Broderick IG # 0.06 10e3/ul Critically high 0.00-0.03 [facility] Comment on above: Performed By: #### C BC ####[facility] Zuaoejhjfq9028 [place] [address]Dr. Slick Broderick IG % 0.8 % Critically high 0.0-0.5 [facility] Comment on above: Performed By: #### C BC ####[facility] Nodmbofdua5181 [place] [address]Dr. Slick Broderick LYMPH # 0.8 103/ul Critically low 1.2-3.8 [facility] Comment on above: Performed By: #### C BC ####[facility] Hpixevmayh4092 [place] [id number]. Meaganwendie Broderick Lymphocytes/100 WBC (Bld) 10.7 % Critically low 20.5-60.0 [facility] Comment on above: Performed By: #### C BC ####[facility] Qqqrkmbsgb4637 [place] [id number] Broderick MANUAL DIFF REQ NO Normal [facility] Comment on above: Performed By: #### C BC ####[facility] Ndbaqnvfqj5703 [place] [id number]. Slick Broderick MCH (RBC) [Entitic mass] 32.3 pg Normal 26.7-34.0 [facility] Comment on above: Performed By: #### C BC ####[facility] Mqwlwsmjph7866 [place] [id number]. Slick Broderick MCHC (RBC) [Mass/Vol] 31.7 g/dL Normal 29.9-35.2 [facility] Comment on above: Performed By: #### C BC ####[facility] Avkrqaawkn1844 [place] [id number] Broderick MCV (RBC) [Entitic vol] 101.8 fL Critically high 81.0-99.0 [facility] Comment on above: Performed By: #### C BC ####[facility] Ghhjqodcqt2742 [place] [id number]. Slick Broderick MONO # 0.8 103/ul Normal 0.3-0.8 [facility] Comment on above: Performed By: #### C BC ####[facility] Rhllmwtihq3306 [place] [id number] Broderick Monocytes/100 WBC (Bld) 10.7 % Normal 1.7-12.0 [facility] Comment on above: Performed By: #### C BC ####[facility] Oihbksohhh8945 [place] [id number] Broderick NEUT # 5.6 103/ul Normal 1.4-6.5 [facility] Comment on above: Performed By: #### C BC ####[facility] Ienfxqvgdo1102 [place] [id number]. Meaganwendie Davie Neutrophils/100 WBC (Bld) 73.7 % Normal 43.0-75.0 [facility] Comment on above: Performed By: #### C BC ####[facility] Qtqifvzfiu5289 [place] [id number]. Slick Broderick Platelet mean volume (Bld) [Entitic vol] 9.4 fL Critically low 9.5-13.5 [facility] Comment on above: Performed By: #### C BC ####[facility] Mthnghnczs8898 [place] [id number]. Slick Broderick PLT 209 103/ul Normal 150-450 [facility] Comment on above: Performed By: #### C BC ####[facility] Tiyjdlmepm3965 [place] [id number]. Slick Broderick RBC 2.20 106/ul Critically low 4.20-5.40 [facility] Comment on above: Performed By: #### C BC ####[facility] Bzamhazlzm4070 [place] [id number]. Slick Broderick WBC 7.6 103/ul Normal 4.0-11.0 [facility] Comment on above: Performed By: #### C BC ####[facility] Lnqmzpdxsu1364 [place] [id number] Broderick PROF 14(COMP METB)on 022 Albumin [Mass/Vol] 2.1 g/dL Critically low 3.4-5.0 [facility] Comment on above: Performed By: #### C MP ####[facility] Lnangnkeok1263 [place] [id number] Broderick Albumin/Globulin [Mass ratio] 0.7 {ratio} Normal [facility] Comment on above: Performed By: #### C MP ####[facility] Nkxfgssekz4307 [place] [id number] Broderick ALP [Catalytic activity/Vol] 83 U/L Normal 46-116 [facility] Comment on above: Performed By: #### C MP ####[facility] Apifsfqpmn5057 [place] [id number]. Slick Broderick ALT [Catalytic activity/Vol] 12 U/L Critically low 14-59 [facility] Comment on above: Performed By: #### C MP ####[facility] Sfpvocqkyx3437 [place] [id number]. Slick Broderick Anion gap [Moles/Vol] 14.0 mmol/L Normal [facility] Comment on above: Performed By: #### C MP ####[facility] Scvhbgwzcx9815 [place] [id number]. Slick Broderick AST [Catalytic activity/Vol] 13 U/L Critically low 15-37 [facility] Comment on above: Performed By: #### C MP ####[facility] Vrgmfsxwcl1130 [place] [address]Dr. Slick Davie Bilirubin [Mass/Vol] 0.3 mg/dL Normal 0.2-1.0 [facility] Comment on above: Performed By: #### C MP ####[facility] Yfgzjxuzmi3325 [place] [id number]. Slick Davie Calcium [Mass/Vol] 7.4 mg/dL Critically low 8.5-10.1 [facility] Comment on above: Performed By: #### C MP ####[facility] Kushlnwvtw3472 [place] [id number]. Slick Davie Chloride [Moles/Vol] 105 mmol/L Normal 98-107 [facility] Comment on above: Performed By: #### C MP ####[facility] Jewwxbsbkr4534 [place] [id number]. Slick Broderick CO2 [Moles/Vol] 23.0 mmol/L Normal 21.0-32.0 The [facility] Comment on above: Performed By: #### C MP ####[facility] Fhpjqbdnxd7651 [place] [address]Dr. Slick Davie Creatinine [Mass/Vol] 1.80 mg/dL Critically high 0.55-1.02 [facility] Comment on above: Performed By: #### C MP ####[facility] Ncstnombfy2220 [place] [id number]. Slick Broderick EGFR-AF DANISH 33 mL/min/1.73m2 Critically low >=60 [facility] Comment on above: Performed By: #### C MP ####[facility] Ixcttjhxdo8047 [place] [id number]. Slick Broderick EGFR-NON AF DANISH 28 mL/min/1.73m2 Critically low >=60 [facility] Comment on above: Performed By: #### C MP ####[facility] Skvnlquoyw5479 [place] [address]Dr. Slick Davie Globulin (S) [Mass/Vol] 3.2 g/dL Normal [facility] Comment on above: Performed By: #### C MP ####[facility] Sylpsgxpft1792 [place] [address]Dr. Slick Davie Glucose [Mass/Vol] 85 mg/dL Normal 74-106 [facility] Comment on above: Performed By: #### C MP ####[facility] Qhvueuptqk4505 [place] [id number]. Slick Davie Potassium [Moles/Vol] 5.0 mmol/L Normal 3.5-5.1 [facility] Comment on above: Performed By: #### C MP ####[facility] Wtonbvldyz3682 [place] [address]Dr. Slick Broderick Protein [Mass/Vol] 5.3 g/dL Critically low 6.4-8.2 Th [facility] Comment on above: Performed By: #### C MP ####[facility] Bbainmsiwb7017 [place] [address]Dr. Slick Broderick Sodium [Moles/Vol] 137 mmol/L Normal 136-145 [facility] Comment on above: Performed By: #### C MP ####[facility] Duqbwatffu1904 [place] [id number]. Slick Davie Urea nitrogen [Mass/Vol] 30.0 mg/dL Critically high 7.0-18.0 [facility] Comment on above: Performed By: #### C MP ####[facility] Rvgrpljbhf313[address] [place], [place] [address]Dr. Slick Broderick Urea nitrogen/Creatinine [Mass ratio] 16.7 mg/mg Normal [facility] Comment on above: Performed By: #### C MP ####[facility] Lryetzxncc0[address] [place], [place] [address]Dr. Slick Broderick ABO RH RETYPEon 12-12-2021 ABO and Rh group Nom (Bld) DONE Normal [facility] Comment on above: Performed By: #### R ETYPE ####[facility] Qxlzkvzwzi239[address] [place], [place] [address]Dr. Slick Broderick BNPon 12-12-2021 Natriuretic peptide B (Bld) [Mass/Vol] 952.0 pg/mL Critically high <=900.0 [facility] Comment on above: Performed By: #### B J2EE SOFTWARE ENGINEER, CRP, CMP ####[facility] Ltkzzohbhh740[address] [place], [place] [address]Dr. Slick Broderick CBC AUTO DIFFon 12-12-2021 BASO # 0.0 103/ul Normal 0.0-0.1 [facility] Comment on above: Performed By: #### C BC ####[facility] Hfwnmshwxg301[address] [place], [place] [address]Dr. Slick Davie Basophils/100 WBC (Bld) 0.2 % Normal 0.2-2.0 [facility] Comment on above: Performed By: #### C BC ####[facility] Hcddeoomfh840[address] [place], [place] [address]Dr. Slick Broderick EO # 0.2 103/ul Normal 0.0-0.7 [facility] Comment on above: Performed By: #### C BC ####[facility] Nudkxzkfhb32450[address] [place], [place] [address]Dr. Slick Davie Eosinophils/100 WBC (Bld) 2.6 % Normal 0.9-7.0 [facility] Comment on above: Performed By: #### C BC ####[facility] Iexkdwbzjs9949 [place] [address]Dr. Slick Broderick Erythrocyte distribution width (RBC) [Ratio] 17.2 % Critically high 11.0-15.0 [facility] Comment on above: Performed By: #### C BC ####[facility] Vqesbojfue0914 [place] [address]Dr. Slick Broderick Hematocrit (Bld) [Volume fraction] 24.0 % Critically low 36.0-48.0 [facility] Comment on above: Performed By: #### C BC ####[facility] Zftrogmmba617[address] [place], [place] [address]Dr. Slick Broderick Hemoglobin (Bld) [Mass/Vol] 7.7 g/dL Critically low 12.0-16.0 [facility] Comment on above: Performed By: #### C BC ####[facility] Xhgmsfxxtx964[address] [place], [place] [address]Dr. Slick Broderick IG # 0.05 10e3/ul Critically high 0.00-0.03 [facility] Comment on above: Performed By: #### C BC ####[facility] Qaeioyrhum006[address] [place], [place] [address]Dr. Slick Broderick IG % 0.5 % Normal 0.0-0.5 [facility] Comment on above: Performed By: #### C BC ####[facility] Wpwazyjpqs6389[address] [place], [place] [address]Dr. Slick Broderick LYMPH # 0.7 103/ul Critically low 1.2-3.8 [facility] Comment on above: Performed By: #### C BC ####[facility] Pcsvleqqkd8349[address] [place], [place] [address]Dr. Slick Broderick Lymphocytes/100 WBC (Bld) 7.7 % Critically low 20.5-60.0 [facility] Comment on above: Performed By: #### C BC ####[facility] Wjlvusnqly0615[address] [place], [place] [address]Dr. Slick Broderick MANUAL DIFF REQ NO Normal [facility] Comment on above: Performed By: #### C BC ####[facility] Dteyhtgjns2114 [place] [address]Dr. Slick Broderick MCH (RBC) [Entitic mass] 32.6 pg Normal 26.7-34.0 [facility] Comment on above: Performed By: #### C BC ####[facility] Oluosdtttp3805 [place] [address]Dr. Slick Broderick MCHC (RBC) [Mass/Vol] 32.1 g/dL Normal 29.9-35.2 [facility] Comment on above: Performed By: #### C BC ####[facility] Koiwnwcvhj1979[address] [place], [place] [address]Dr. Slick Davie MCV (RBC) [Entitic vol] 101.7 fL Critically high 81.0-99.0 [facility] Comment on above: Performed By: #### C BC ####[facility] Kucmmfvxsu895[address] [place], [place] [address]Dr. Slick Davie MONO # 0.8 103/ul Normal 0.3-0.8 [facility] Comment on above: Performed By: #### C BC ####[facility] Cubcrnujau648[address] [place], [place] [address]Dr. Meaganwendie Broderick Monocytes/100 WBC (Bld) 8.5 % Normal 1.7-12.0 [facility] Comment on above: Performed By: #### C BC ####[facility] Hcvpgjvury569[address] [place], [place] [address]Dr. Slick Brodercik NEUT # 7.3 103/ul Critically high 1.4-6.5 [facility] Comment on above: Performed By: #### C BC ####[facility] Hjuqaehnfd678[address] [place], [place] [address]Dr. Slick Broderick Neutrophils/100 WBC (Bld) 80.5 % Critically high 43.0-75.0 [facility] Comment on above: Performed By: #### C BC ####[facility] Flpzmsgkox958[address] [place], [place] [address]Dr. Meaganwendie Davie Platelet mean volume (Bld) [Entitic vol] 8.9 fL Critically low 9.5-13.5 [facility] Comment on above: Performed By: #### C BC ####[facility] Eqvflsbzqc7630 [place] [id number]. Slick Broderick PLT 204 103/ul Normal 150-450 [facility] Comment on above: Performed By: #### C BC ####[facility] Dzadshdbdh3318 [place], [place] [address]Oa. Slick Broderick RBC 2.36 106/ul Critically low 4.20-5.40 [facility] Comment on above: Performed By: #### C BC ####[facility] Pozgvirdni2776 [place] [id number]. Slick Broderick WBC 9.1 103/ul Normal 4.0-11.0 [facility] Comment on above: Performed By: #### C BC ####[facility] Xhopjgayck3942 [place] [id number]. Slick Broderick CBC W MANUAL DIFFon 12-13-19 22 ATYPICAL LYMPH # Normal [facility] Comment on above: Performed By: #### C BCMAN ####[facility] Qslefrpydl1563 [place] [id number]. Slick Broderick ATYPICAL LYMPH % Normal [facility] Comment on above: Performed By: #### C BCMAN ####[facility] [id number] [place] [id number]. Slick Broderick BAND # Normal 0.0-0.3 [facility] Comment on above: Performed By: #### C BCMAN ####[facility] Xbhccwzunv[address] [place] [id number]. Meaganlan Broderick BAND % Normal 0-5 [facility] Comment on above: Performed By: #### C BCMAN ####[facility] M[address]ir[address]ylj[address] [place] [id number]. Slick Broderick BASOM # 0.00 103/ul Normal 0.00-0.10 [facility] Comment on above: Performed By: #### C BCMAN ####[facility] [id number] [place] [id number]. Slick Broderick BASOM % 0.0 % Critically low 0.2-2.0 [facility] Comment on above: Performed By: #### C AIDEN ####[facility] B[address]rpamw[address] [place] [id number]. Slick Broderick BLAST # Normal [facility] Comment on above: Performed By: #### C AIDEN ####[facility] Vj[address]mfyqvu[address] [place] [id number]. Slick Broderick BLAST % Normal [facility] Comment on above: Performed By: #### C AIDEN ####[facility] Eagpugalsj[address] [place] [address]Dr. Slick Broderick CORRECTED WBC Normal 4.0-11.0 [facility] Comment on above: Performed By: #### C AIDEN ####[facility] Lkhtoectsf[address] [place], [place] [address]Dr. Slick Broderick EOS # 0.35 103/ul Normal 0.00-0.70 [facility] Comment on above: Performed By: #### C AIDEN ####[facility] Fhextacagl[address] [place], [place] [address]Dr. Slick Broderick EOS% 3.0 % Normal 0.9-7.0 [facility] Comment on above: Performed By: #### C AIDEN ####[facility] Lprjjpykct57[address] [place] [address]Dr. Slick Broderick HCT 21.4 % Critically low 36.0-48.0 [facility] Comment on above: Result Comment: TEST REPEATED CRITICAL VALUE VERIFIED Performed By: #### C AIDEN ####[facility] Qbzasdwxtr6610 [place] [address]Dr. Slick Broderick HGB 6.6 g/dl Critically low 12.0-16.0 [facility] Comment on above: Result Comment: TEST REPEATED CRITICAL VALUE VERIFIED Performed By: #### C AIDEN ####[facility] Xyvemctkyp[address] [place], [place] [address]Dr. Slick Broderick LYMPHM # 0.59 103/ul Critically low 1.20-3.80 [facility] Comment on above: Performed By: #### C AIDEN ####[facility] Ywiynqrzlb3346 [place] [id number]. Slick Broderick LYMPHM% 5.0 % Critically low 20.5-60.0 [facility] Comment on above: Performed By: #### C AIDEN ####[facility] Saywmvtndp0213 [place] [id number]. Slick Broderick MCH 33.2 pg Normal 26.7-34.0 [facility] Comment on above: Performed By: #### C AIDEN ####[facility] Mdsiumeumv5769 [place], [place] [address]Ys. Slick Broderick MCHC 30.8 g/dl Normal 29.9-35.2 [facility] Comment on above: Performed By: #### C AIDEN ####[facility] Jmdnzzirzn8624 [place] [id number]. Slick Broderick MCV 107.5 fL Critically high 81.0-99.0 [facility] Comment on above: Result Comment: RBCS APPEAR MACROCYTIC ON PERIPHERAL SMEAR Performed By: #### C AIDEN ####[facility] Bdfijdbdsq3497 [place] [id number]. Slick Broderick METAMYELOCYTE # Normal [facility] Comment on above: Performed By: #### C AIDEN ####[facility] Jwzbjzbbbx3374 [place] [id number]. Slick Broderick METAMYELOCYTE % Normal [facility] Comment on above: Performed By: #### C AIDEN ####[facility] Axtmvahyzm4389 [place] [id number]. Slick Broderick MONOM# 0.71 103/ul Normal 0.30-0.80 [facility] Comment on above: Performed By: #### C AIDEN ####[facility] Vpienscgic9025 [place] [id number]. Slick Broderick MONOM% 6.0 % Normal 1.7-12.0 [facility] Comment on above: Performed By: #### C AIDEN ####[facility] Uieretqkll3838 [place] [id number]. Slick Broderick MPV 9.2 fL Critically low 9.5-13.5 [facility] Comment on above: Performed By: #### C AIDEN ####[facility] Cjkhrfyadt47[address] [place] [address]Dr. Slick Broderick MYELOCYTE # Normal [facility] Comment on above: Performed By: #### C AIDEN ####[facility] Lrtkjoxipa7227 [place] [id number]. Slick Broderick MYELOCYTE % Normal [facility] Comment on above: Performed By: #### C AIDEN ####[facility] Xfvatzcgqc6750 [place] [id number]. Slick Broderick NRBC Normal [facility] Comment on above: Performed By: #### C AIDEN ####[facility] Sxclhlignk3981 [place] [id number]. Slick Broderick PLT 232 103/ul Normal 150-450 [facility] Comment on above: Performed By: #### C AIDEN ####[facility] Iirdwiwipf0132 [place] [id number]. Slick Broderick RBC 1.99 106/ul Critically low 4.20-5.40 [facility] Comment on above: Performed By: #### C AIDEN ####[facility] Gzzrjoeldr8856 [place] [id number]. Slick Broderick RDW 15.6 % Critically high 11.0-15.0 [facility] Comment on above: Performed By: #### C AIDEN ####[facility] Qhyztwbkhp9393 [place] [id number]. Slick Broderick SEG # 10.15 103/ul Critically high 1.40-6.50 [facility] Comment on above: Performed By: #### C AIDEN ####[facility] Rgkraidbqz8858 [place] [id number]. Slick Broderick SEG % 86.0 % Critically high 43.0-75.0 [facility] Comment on above: Performed By: #### C AIDEN ####[facility] Mozwdmgfhv[address] [place], [place] [address]Dr. Slick Broderick WBC 11.8 103/ul Critically high 4.0-11.0 [facility] Comment on above: Performed By: #### C BCMAN ####[facility] Achpdmdgjf0621 [place], [place] [address]Lb. Slick Broderick CRPon 12-12-2021 CRP 10.1 mg/dL Critically high <=1.0 [facility] Comment on above: Performed By: #### B J2EE SOFTWARE ENGINEER, CRP, CMP ####[facility] Mvrwpjlnnd3772 [place], [place] [address]Li. Slick Broderick CULTURE BLOODon 12-12-2021 Microscopic examination of blood, culture Culture Observations: NO GROWTH AT [address] [facility] Comment on above: Performed By: #### B LDCX2 ####[facility] Vxppgbzhfj8752 [place], [place] [address]Ze. Slick Broderick Microscopic examination of blood, culture Culture Observations: NO GROWTH AT [address] [facility] Comment on above: Performed By: #### B LDCX1 ####[facility] Bqfhsdavzm2163 [place], [place] [address]Ul. Slick Broderick CULTURE URINEon 12-12-2021 CULTURE URINE Culture Observations : NO GROWTH. Normal [facility] Comment on above: Performed By: #### U RCX ####[facility] Egkcrslkal4610 [place] [id number]. Slick Borderick Covid-19 PCR (CVDTB)on SARS-CoV-2 (COVID-19) RNA DONNIE+probe Ql (Unsp spec) Not detected Normal NOT DETECTED [facility] Comment on above: Result Comment: When diagnostic testing is negative, the possibility of a false negative should be considered inthe context of a patient's recent exposures and the presence of clinical signs and symptomsconsistent with SARS-CoV-2.This test is not yet approved or cleared by the [place] FDA. When there are no FDA-approved or cleared tests available, and other criteria are met, FDA can make tests available under an emergency access mechanism called an Emergency Use Authorization (EUA). The EUA for this test is supported by the Production Statistical Clerk of Health and Human Service's declaration that circumstances exist to justify the emergency use of in vitro diagnostics for the detection and/or diagnosis of the virus that causes COVID-19. This EUA will remain in effect for the duration of the COVID-19 declaration justifying emergency of IVDs, unless it is terminated or revoked by the FDA (after which the test may no longer be used). Performed By: #### C VDTB ####[facility] Vsewximmgl2675 [place] [address]Dr. Slick Broderick ER URINE PROFILEon 2 Bilirubin Ql (U) Negative Normal NEGATIVE The [facility] Comment on above: Performed By: #### U MICRO, ERUR ####[facility] Tgvdpychih[address] [place], [place] [address]Dr. Slick Broderick Clarity (U) CLOUDY Abnormal CLEAR [facility] Comment on above: Performed By: #### U MICRO, ERUR ####[facility] Efzsrxtooz8[address] [place], [place] [address]Dr. Slick Broderick Color (U) LT. YELLOW Normal YELLOW [facility] Comment on above: Performed By: #### U MICRO, ERUR ####[facility] Njosydfqon[address] [place], [place] [address]Dr. Meaganwendie Broderick ERUAHD A micrscopic examination will be performed if indicated. Normal [facility] Comment on above: Performed By: #### U MICRO, ERUR ####[facility] Sbhcqfqgme4552 [place] [address]Dr. Meaganwendie Broderick Glucose Ql (U) Negative Normal NEGATIVE [facility] Comment on above: Performed By: #### U MICRO, ERUR ####[facility] Dvkuiupisa7640 [place] [address]Dr. Meaganwendie Broderick Hemoglobin Ql (U) Negative Normal NEGATIVE The [facility] Comment on above: Performed By: #### U MICRO, ERUR ####[facility] Vzfapborde0291 [place] [address]Dr. Slick rBoderick Ketones Ql (U) Negative Normal NEGATIVE [facility] Comment on above: Performed By: #### U MICRO, ERUR ####[facility] Ccakhlevzw7064 [place] [address]Dr. Slick Broderick LEUKOCYTES MODERATE Abnormal NEGATIVE [facility] Comment on above: Performed By: #### U MICRO, ERUR ####[facility] Crsgwlbjyx0421 [place] [address]Dr. Slick Broderick Nitrite Ql (U) Negative Normal NEGATIVE [facility] Comment on above: Performed By: #### U MICRO, ERUR ####[facility] Lagprgparn8423 [place] [address]Dr. Slick Broderick pH (U) 6.0 [pH] Normal 5-9 [facility] Comment on above: Performed By: #### U MICRO, ERUR ####[facility] Gqwtwjomjv[address] [place], [place] [address]Dr. Slick Broderick SPEC GRAVITY 1.010 Normal 1.005-<=1.025 [facility] Comment on above: Performed By: #### U MICRO, ERUR ####[facility] Eemtbonadz[address] [place], [place] [address]Dr. Slick Broderick UA PROTEIN Negative Normal NEGATIVE/ TRACE [facility] Comment on above: Performed By: #### U MICRO, ERUR ####[facility] Rgzutjrmya[address] [place], [place] [address]Dr. Slick Broderick UR MICRO IND INDICATED Normal [facility] Comment on above: Performed By: #### U MICRO, ERUR ####[facility] Emcybokdaw5[address] [place], [place] [address]Dr. Slick Broderick Urobilinogen Qn (U) 0.2 {Hiren'U}/dL Normal 0.2 - 1. 0 [facility] Comment on above: Performed By: #### U MICRO, ERUR ####[facility] Olwioabfzv44[address] [place], [place] [address]Dr. Slick Broderick IRON AND TIBCon 12-12-2021 % SATURATION 7.0 % Normal [facility] Comment on above: Performed By: #### B 12FOL, FETIBC ####[facility] Znalpekdne040[address] [place], [place] [address]Dr. Slick Broderick Iron [Mass/Vol] 18.0 ug/dL Critically low 50.0-170.0 [facility] Comment on above: Performed By: #### B 12FOL, FETIBC ####[facility] Nnwhusucok4245 [place] [address]Dr. Slick Broderick TIBC DIRECT 257.0 ug/dL Normal 250.0-450.0 [facility] Comment on above: Performed By: #### B 12FOL, FETIBC ####[facility] Vamymhjdgc3613 [place] [address]Dr. Slick Broderick LACTATE/LACTIC ACIDon 2021 Lactate [Moles/Vol] 0.7 mmol/L Normal 0.4-1.9 [facility] Comment on above: Performed By: #### L ACT ####[facility] Fritwpypes385[address] [place], [place] [address]Dr. Slick Broderick OCC BLD IMMUNO SCREENon OCCULT BLOOD Negative Normal NEGATIVE [facility] Comment on above: Performed By: #### O BSCRN ####[facility] Uqswfedewa6776 [place] [address]Dr. Slick Broderick PROF 14(COMP METB)on 022 Albumin [Mass/Vol] 2.6 g/dL Critically low 3.4-5.0 [facility] Comment on above: Performed By: #### B J2EE SOFTWARE ENGINEER, CRP, CMP ####[facility] Bkraauouax5847 [place] [address]Dr. Slick Broderick Albumin/Globulin [Mass ratio] 0.7 {ratio} Normal [facility] Comment on above: Performed By: #### B J2EE SOFTWARE ENGINEER, CRP, CMP ####[facility] Ulfcwkgnbx5059 [place] [address]Dr. Slick Broderick ALP [Catalytic activity/Vol] 105 U/L Normal 46-116 [facility] Comment on above: Performed By: #### B J2EE SOFTWARE ENGINEER, CRP, CMP ####[facility] Xamgayhdah6263 [place] [address]Dr. Slick Broderick ALT [Catalytic activity/Vol] 16 U/L Normal 14-59 [facility] Comment on above: Performed By: #### B J2EE SOFTWARE ENGINEER, CRP, CMP ####[facility] Sxqxcewmkw0908 [place] [address]Dr. Slick Broderick Anion gap [Moles/Vol] 11.7 mmol/L Normal [facility] Comment on above: Performed By: #### B J2EE SOFTWARE ENGINEER, CRP, CMP ####[facility] Dtthenokup020[address] [place], [place] [address]Dr. Slick Broderick AST [Catalytic activity/Vol] 11 U/L Critically low 15-37 [facility] Comment on above: Performed By: #### B J2EE SOFTWARE ENGINEER, CRP, CMP ####[facility] Viazqnsmcv[address] [place], [place] [address]Dr. Slick Broderick Bilirubin [Mass/Vol] 0.3 mg/dL Normal 0.2-1.0 [facility] Comment on above: Performed By: #### B J2EE SOFTWARE ENGINEER, CRP, CMP ####[facility] Qahnddicrd916[address] [place], [place] [address]Dr. Slick Broderick Calcium [Mass/Vol] 7.8 mg/dL Critically low 8.5-10.1 [facility] Comment on above: Performed By: #### B J2EE SOFTWARE ENGINEER, CRP, CMP ####[facility] Zrytfwfunl[address] [place], [place] [address]Dr. Slick Broderick Chloride [Moles/Vol] 105 mmol/L Normal 98-107 [facility] Comment on above: Performed By: #### B J2EE SOFTWARE ENGINEER, CRP, CMP ####[facility] Rdlaztmewf[address] [place], [place] [address]Dr. Slick Broderick CO2 [Moles/Vol] 24.2 mmol/L Normal 21.0-32.0 The [facility] Comment on above: Performed By: #### B J2EE SOFTWARE ENGINEER, CRP, CMP ####[facility] Hxtcqotpvc737[address] [place], [place] [address]Dr. Slick Broderick Creatinine [Mass/Vol] 1.96 mg/dL Critically high 0.55-1.02 [facility] Comment on above: Performed By: #### B J2EE SOFTWARE ENGINEER, CRP, CMP ####[facility] Pkgfrcldmn0896 [place] [id number]. Slick Broderick EGFR-AF DANISH 30 mL/min/1.73m2 Critically low >=60 [facility] Comment on above: Performed By: #### B J2EE SOFTWARE ENGINEER, CRP, CMP ####[facility] Kgdsaptjvx0268 [place] [address]Dr. Slick Broderick EGFR-NON AF DANISH 25 mL/min/1.73m2 Critically low >=60 [facility] Comment on above: Performed By: #### B J2EE SOFTWARE ENGINEER, CRP, CMP ####[facility] Jvqyqxrghd3815 [place] [address]Dr. Slick Broderick Globulin (S) [Mass/Vol] 3.8 g/dL Normal [facility] Comment on above: Performed By: #### B J2EE SOFTWARE ENGINEER, CRP, CMP ####[facility] Zmkxqbhsap[address] [place], [place] [address]Dr. Slick Broderick Glucose [Mass/Vol] 91 mg/dL Normal 74-106 The [facility] Comment on above: Performed By: #### B J2EE SOFTWARE ENGINEER, CRP, CMP ####[facility] Ykshksfchx996[address] [place], [place] [address]Dr. Slick Broderick Potassium [Moles/Vol] 4.9 mmol/L Normal 3.5-5.1 [facility] Comment on above: Performed By: #### B J2EE SOFTWARE ENGINEER, CRP, CMP ####[facility] Dexeonguwm88[address] [place], [place] [address]Dr. Slick Broderick Protein [Mass/Vol] 6.4 g/dL Normal 6.4-8.2 The [facility] Comment on above: Performed By: #### B J2EE SOFTWARE ENGINEER, CRP, CMP ####[facility] Mmhfmzfwmg52020[address] [place], [place] [address]Dr. Slick Broderick Sodium [Moles/Vol] 136 mmol/L Normal 136-145 The [facility] Comment on above: Performed By: #### B J2EE SOFTWARE ENGINEER, CRP, CMP ####[facility] Mdbobksect[address] [place], [place] [address]Dr. Slick Broderick Urea nitrogen [Mass/Vol] 32.0 mg/dL Critically high 7.0-18.0 [facility] Comment on above: Performed By: #### B J2EE SOFTWARE ENGINEER, CRP, CMP ####[facility] Wchawppjck7994 [place] [address]Dr. Slick Broderick Urea nitrogen/Creatinine [Mass ratio] 16.3 mg/mg Normal [facility] Comment on above: Performed By: #### B J2EE SOFTWARE ENGINEER, CRP, CMP ####[facility] Lxkcpzwcoa7700 [place] [address]Dr. Slick Broderick TYPE AND SCREENon 12-12-2021 TYPE AND SCREEN Negative Normal [facility] Comment on above: Performed By: #### T NS ####[facility] Oudimfuviz[address] [place], [place] [address]Dr. Slick Broderick URINE MICROSCOPIC ONLYon BACTERIA SMALL Abnormal NONE SEEN [facility] Comment on above: Performed By: #### U MICRO, ERUR ####[facility] Xaxyuzvjoy215[address] [place], [place] [address]Dr. Slick Broderick Bacteria identified Cx Nom (U) INDICATED Normal [facility] Comment on above: Performed By: #### U MICRO, ERUR ####[facility] Mhqzirpmad4[address] [place], [place] [address]Dr. Slick Broderick CAST NONE SEEN Normal NONE SEEN [facility] Comment on above: Performed By: #### U MICRO, ERUR ####[facility] Htpgwowzfv[address] [place], [place] [address]Dr. Slick Broderick Crystals LM Nom (Urine sed) NONE SEEN Normal NONE SEEN [facility] Comment on above: Performed By: #### U MICRO, ERUR ####[facility] Ffcaruhwuz9720 [place] [address]Dr. Slick Broderick Epithelial cells LM Ql (Urine sed) MANY Abnormal NONE SEEN /RARE [facility] Comment on above: Performed By: #### U MICRO, ERUR ####[facility] Ryaphiadme535[address] [place], [place] [address]Dr. Slick Broderick MUCOUS TRACE Abnormal NONE SEEN [facility] Comment on above: Performed By: #### U MICRO, ERUR ####[facility] Xorxjptwug8597 [place] [id number]. Slick Broderick RBC 0-2 Normal 0-2 [facility] Comment on above: Performed By: #### U MICRO, ERUR ####[facility] Vrunpdusew5770 [place] [address]Dr. Slick Broderick WBC 2-5 Abnormal NONE SEEN [facility] Comment on above: Performed By: #### U MICRO, ERUR ####[facility] Ntmsfhmoxz4870 [place] [id number]. Slick Broderick VIT B12 AND FOLATEon 022 Cobalamin (Vitamin B12) [Mass/Vol] 753.0 pg/mL Normal 193.0-986.0 [facility] Comment on above: Performed By: #### B 12FOL, FETIBC ####[facility] Yblqfbelie3134 [place] [address]Dr. Meaganwendie Broderick FOLATE 20.20 ng/mL Normal 8.60-58.90 [facility] Comment on above: Performed By: #### B 12FOL, FETIBC ####[facility] Brtixxdirl49[address] [place] [address]Dr. Meaganwendie Broderick XR CHEST 1 Von 12-12-2021 XR CHEST 1 V Normal [facility] XR KNEE LT 3Von 12-12-2021 XR KNEE LT 3V Normal [facility] PROF CHEM 8 (BAS METB)on Anion gap [Moles/Vol] 11.4 mmol/L Normal [facility] Comment on above: Performed By: #### B MP ####[facility] Xgmpwzrtbd2797 [place] [id number]. Meaganwendie Broderick Calcium [Mass/Vol] 7.4 mg/dL Critically low 8.5-10.1 [facility] Comment on above: Performed By: #### B MP ####[facility] Zsnrctiwym1683 [place] [address]Dr. Slick Broderick Chloride [Moles/Vol] 109 mmol/L Critically high 98-107 [facility] Comment on above: Performed By: #### B MP ####[facility] Fketeavhsb2070 [place] [id number]. Slick Broderick CO2 [Moles/Vol] 26.6 mmol/L Normal 21.0-32.0 [facility] Comment on above: Performed By: #### B MP ####[facility] Izaochhuui7409 [place] [id number]. Slick Broderick Creatinine [Mass/Vol] 1.16 mg/dL Critically high 0.55-1.02 [facility] Comment on above: Performed By: #### B MP ####[facility] Ufsgrekbxm8136 [place] [id number]. Slick Davie EGFR-AF DANISH 56 mL/min/1.73m2 Critically low >=60 [facility] Comment on above: Performed By: #### B MP ####[facility] Xstyarvdiu[address] [place], [place] [address]Dr. Meaganwendie Davie EGFR-NON AF DANISH 46 mL/min/1.73m2 Critically low >=60 [facility] Comment on above: Performed By: #### B MP ####[facility] Ajhhnoukwe3060 [place] [address]Dr. Slikc Broderick Glucose [Mass/Vol] 128 mg/dL Critically high 74-106 [facility] Comment on above: Performed By: #### B MP ####[facility] Tdhwgpunxh5910 [place] [address]Dr. Meaganwendie Broderick Potassium [Moles/Vol] 5.0 mmol/L Normal 3.5-5.1 [facility] Comment on above: Performed By: #### B MP ####[facility] Roqbkvqnyj2217 [place] [address]Dr. Meaganwendie Broderick Sodium [Moles/Vol] 142 mmol/L Normal 136-145 [facility] Comment on above: Performed By: #### B MP ####[facility] Vmvxeovjoz396[address] [place], [place] [address]Dr. Slick Broderick Urea nitrogen [Mass/Vol] 22.0 mg/dL Critically high 7.0-18.0 [facility] Comment on above: Performed By: #### B MP ####[facility] Oqtdxoaacu7687 [place], [place] [address]Ru. Slick Broderick Urea nitrogen/Creatinine [Mass ratio] 19.0 mg/mg Normal [facility] Comment on above: Performed By: #### B MP ####[facility] Biljccohzk4425 [place], [place] [address]Vd. Slick Broderick XR TIB_FIB LT 2Von 2 XR TIB_FIB LT 2V Normal [facility] CT CSPINE WO CONon 2 CT CSPINE WO CON Normal [facility] CT HEAD WO CONon 11-29-2021 CT HEAD WO CON Normal [facility] Basic Metabolic Panelon 10-12 Calcium [Mass/Vol] 8.7 mg/dL Normal 8.2-10.2 [facility] Comment on above: Performed By: #### B MP #### [facility] [address] [place] [address] [place] Chloride [Moles/Vol] 100 mmol/L Normal 95-114 [facility] Comment on above: Performed By: #### B MP #### [facility] [address] [place] [address] [place] CO2 [Moles/Vol] 24.9 mmol/L Normal 22.0-30.0 [facility] Comment on above: Performed By: #### B MP #### [facility] [address] [place] [address] [place] Creatinine [Mass/Vol] 0.88 mg/dL Normal 0.44-1.03 [facility] Comment on above: Performed By: #### B MP #### [facility] [address] [place] [address] [place] Creatinine Clr Calc Pharmacy 73.09 Normal [facility] Comment on above: Result Comment: PERF ORMED BY: [place] [address] PATHOLOGIST SHIRT SEWER GERA CASTELLANOS M.D. Performed By: #### B MP #### [facility] [address] [place] [address] [place] Estimated GFR ( Neela > 60 Normal [facility] Comment on above: Result Comment: GFR estimated reference range: According to KDOQI guidelines, <60 ml/min/1.73m2 is sufficient to diagnose a patient with chronic kidney disease. Performed By: #### B MP #### [facility] [address] Estimated GFR (Non- Am > 60 Normal [facility] Comment on above: Performed By: #### B MP #### [facility] [address] Glucose [Mass/Vol] 98 mg/dL Normal 70-100 [facility] Comment on above: Result Comment: [place] Glucose Reference Range is dependent on time and content of last meal. Glucose of more than 200 mg/dL in a nonstressed, ambulatory subject supports the diagnosis of Diabetes Mellitus. ADA recommended reference range Performed By: #### B MP #### [facility] [address] Potassium [Moles/Vol] 4.3 mmol/L Normal 3.5-5.1 [facility] Comment on above: Performed By: #### B MP #### [facility] [address] [place] [address] [place] Sodium [Moles/Vol] 133 mmol/L Low 136-146 [facility] Comment on above: Performed By: #### B MP #### [facility] [address] Urea nitrogen [Mass/Vol] 13 mg/dL Normal 9-23 [facility] Comment on above: Performed By: #### B MP #### [facility] [address] Basic Metabolic Panelon 05-3 0-2021 Calcium [Mass/Vol] 8.6 mg/dL Normal 8.2-10.2 [facility] Comment on above: Performed By: #### C UU, ADDONUAPLUS, UCREA, YUN, UROSMO #### [facility] [address] [place] [address] [place] Chloride [Moles/Vol] 104 mmol/L Normal 95-114 [facility] Comment on above: Performed By: #### C UU, ADDONUAPLUS, UCREA, YUN, UROSMO #### [facility] [address] CO2 [Moles/Vol] 24.5 mmol/L Normal 22.0-30.0 [facility] Comment on above: Performed By: #### C UU, ADDONUAPLUS, UCREA, YUN, UROSMO #### [facility] [address] Creatinine [Mass/Vol] 0.86 mg/dL Normal 0.44-1.03 [facility] Comment on above: Performed By: #### C UU, ADDONUAPLUS, UCREA, YUN, UROSMO #### [facility] [address] Creatinine Clr Calc Pharmacy 75.34 [facility] Comment on above: Result Comment: PERF ORMED BY: [place] [address] PATHOLOGIST SHIRT SEWER GERA CASTELLANOS M.D. Performed By: #### C UU, ADDONUAPLUS, UCREA, YUN, UROSMO #### [address] Estimated GFR ( Neela > 60 [facility] Comment on above: Result Comment: GFR estimated reference range: According to KDOQI guidelines, <60 ml/min/1.73m2 is sufficient to diagnose a patient with chronic kidney disease. Performed By: #### C UU, ADDONUAPLUS, UCREA, YUN, UROSMO #### [facility] [address] Estimated GFR (Non- Am > 60 [facility] Comment on above: Performed By: #### C UU, ADDONUAPLUS, UCREA, YUN, UROSMO #### [facility] [address] [place] [address] [place] Glucose [Mass/Vol] 89 mg/dL Normal 70-100 [facility] Comment on above: Result Comment: [place] Glucose Reference Range is dependent on time and content of last meal. Glucose of more than 200 mg/dL in a nonstressed, ambulatory subject supports the diagnosis of Diabetes Mellitus. ADA recommended reference range Performed By: #### C UU, ADDONUAPLUS, UCREA, YUN, UROSMO #### [address] Potassium [Moles/Vol] 4.3 mmol/L Normal 3.5-5.1 [facility] Comment on above: Performed By: #### C UU, ADDONUAPLUS, UCREA, YUN, UROSMO #### [address] Sodium [Moles/Vol] 136 mmol/L Normal 136-146 [facility] Comment on above: Performed By: #### C UU, ADDONUAPLUS, UCREA, YUN, UROSMO #### [address] Urea nitrogen [Mass/Vol] 15 mg/dL Normal 9-23 [facility] Comment on above: Performed By: #### C UU, ADDONUAPLUS, UCREA, YUN, UROSMO #### [address] Complete Blood Count Auto Di ffon 11-08-2021 Basophils (Bld) [#/Vol] 0.0 10*3/uL Normal 0.0-0.2 [facility] Comment on above: Result Comment: PERF ORMED BY: [place] [address] PATHOLOGIST SHIRT SEWER GERA CASTELLANOS M.D. Performed By: #### C UU, ADDONUAPLUS, UCREA, YUN, UROSMO #### [address] Basophils/100 WBC (Bld) 0.6 % Normal . [facility] Comment on above: Performed By: #### C UU, ADDONUAPLUS, UCREA, YUN, UROSMO #### [facility] [address] Eosinophils (Bld) [#/Vol] 0.2 10*3/uL Normal 0.0-0.45 [facility] Comment on above: Performed By: #### C UU, ADDONUAPLUS, UCREA, YUN, UROSMO #### [facility] [address] Eosinophils/100 WBC (Bld) 2.1 % Normal . [facility] Comment on above: Performed By: #### C UU, ADDONUAPLUS, UCREA, YUN, UROSMO #### [facility] [address] Erythrocyte distribution width (RBC) [Ratio] 15.3 % Normal 11.9-15.3 [facility] Comment on above: Performed By: #### C UU, ADDONUAPLUS, UCREA, YUN, UROSMO #### [address] Hematocrit (Bld) [Volume fraction] 24.0 % Low 34.0-46.4 [facility] Comment on above: Performed By: #### C UU, ADDONUAPLUS, UCREA, YUN, UROSMO #### [address] Hemoglobin (Bld) [Mass/Vol] 8.1 g/dL Low 11.8-15.4 [facility] Comment on above: Performed By: #### C UU, ADDONUAPLUS, UCREA, YUN, UROSMO #### [address] Lymphocytes (Bld) [#/Vol] 0.8 10*3/uL Low 1.00-4.8 [facility] Comment on above: Performed By: #### C UU, ADDONUAPLUS, UCREA, YUN, UROSMO #### [place] [address] [place] Lymphocytes/100 WBC (Bld) 9.8 % Normal . [facility] Comment on above: Performed By: #### C UU, ADDONUAPLUS, UCREA, YUN, UROSMO #### [address] MCH (RBC) [Entitic mass] 33.8 pg Normal 24.7-34.3 [facility] Comment on above: Performed By: #### C UU, ADDONUAPLUS, UCREA, YUN, UROSMO #### [address] MCV (RBC) [Entitic vol] 99.6 fL Normal 80-100 [facility] Comment on above: Performed By: #### C UU, ADDONUAPLUS, UCREA, YUN, UROSMO #### [address] Mean Corpuscular HGB Conc 33.9 g/dL Normal 32.0-35.0 [facility] Comment on above: Performed By: #### C UU, ADDONUAPLUS, UCREA, YUN, UROSMO #### [address] Monocytes (Bld) [#/Vol] 0.8 10*3/uL Normal 0.0-0.8 [facility] Comment on above: Performed By: #### C UU, ADDONUAPLUS, UCREA, YUN, UROSMO #### [address] Monocytes/100 WBC (Bld) 10.7 % Normal . [facility] Comment on above: Performed By: #### C UU, ADDONUAPLUS, UCREA, YUN, UROSMO #### [address] Neutrophils (Bld) [#/Vol] 6.1 10*3/uL Normal 1.8-7.7 [facility] Comment on above: Performed By: #### C UU, ADDONUAPLUS, UCREA, YUN, UROSMO #### [address] [place] [address] [place] Neutrophils/100 WBC (Bld) 76.8 % Normal . [facility] Comment on above: Performed By: #### C UU, ADDONUAPLUS, UCREA, YUN, UROSMO #### [facility] [address] Nucleated RBC/100 WBC (Bld) [Ratio] 0.1 % Normal 0-0.5 [facility] Comment on above: Performed By: #### C UU, ADDONUAPLUS, UCREA, YUN, UROSMO #### [facility] [address] Platelet mean volume (Bld) [Entitic vol] 7.1 fL Normal 6.3-10.7 [facility] Comment on above: Performed By: #### C UU, ADDONUAPLUS, UCREA, YUN, UROSMO #### [address] Platelets (Bld) [#/Vol] 213 10*3/uL Normal 150-450 [facility] Comment on above: Performed By: #### C UU, ADDONUAPLUS, UCREA, YUN, UROSMO #### [address] RBC (Bld) [#/Vol] 2.41 10*6/uL Low 3.60-5.00 [facility] Comment on above: Performed By: #### C UU, ADDONUAPLUS, UCREA, YUN, UROSMO #### [address] WBC (Bld) [#/Vol] 7.9 10*3/uL Normal 4.5-11.0 [facility] Comment on above: Performed By: #### C UU, ADDONUAPLUS, UCREA, YUN, UROSMO #### [address] Basic Metabolic Panelon 05-2 Calcium [Mass/Vol] 8.5 mg/dL Normal 8.2-10.2 [facility] Comment on above: Performed By: #### C UU, ADDONUAPLUS, UCREA, YUN, UROSMO #### [facility] [address] Chloride [Moles/Vol] 103 mmol/L Normal 95-114 [facility] Comment on above: Performed By: #### C UU, ADDONUAPLUS, UCREA, YUN, UROSMO #### [facility] [address] CO2 [Moles/Vol] 23.6 mmol/L Normal 22.0-30.0 [facility] Comment on above: Performed By: #### C UU, ADDONUAPLUS, UCREA, YUN, UROSMO #### [facility] [address] Creatinine [Mass/Vol] 0.88 mg/dL Normal 0.44-1.03 [facility] Comment on above: Performed By: #### C UU, ADDONUAPLUS, UCREA, YUN, UROSMO #### [facility] [address] [place] [address] [place] Creatinine Clr Calc Pharmacy 73.42 [facility] Comment on above: Result Comment: PERF ORMED BY: [place] [address] PATHOLOGIST SHIRT SEWER GERA CASTELLANOS M.D. Performed By: #### C UU, ADDONUAPLUS, UCREA, YUN, UROSMO #### [address] Estimated GFR ( Neela > 60 Normal [facility] Comment on above: Result Comment: GFR estimated reference range: According to KDOQI guidelines, <60 ml/min/1.73m2 is sufficient to diagnose a patient with chronic kidney disease. Performed By: #### C UU, ADDONUAPLUS, UCREA, YUN, UROSMO #### [facility] [address] [place] [address] [place] Estimated GFR (Non- Am > 60 Normal [facility] Comment on above: Performed By: #### C UU, ADDONUAPLUS, UCREA, YUN, UROSMO #### [facility] [address] Glucose [Mass/Vol] 98 mg/dL Normal 70-100 [facility] Comment on above: Result Comment: [place] Glucose Reference Range is dependent on time and content of last meal. Glucose of more than 200 mg/dL in a nonstressed, ambulatory subject supports the diagnosis of Diabetes Mellitus. ADA recommended reference range Performed By: #### C UU, ADDONUAPLUS, UCREA, YUN, UROSMO #### [address] Potassium [Moles/Vol] 4.2 mmol/L Normal 3.5-5.1 [facility] Comment on above: Performed By: #### C UU, ADDONUAPLUS, UCREA, YUN, UROSMO #### [address] Sodium [Moles/Vol] 134 mmol/L Low 136-146 [facility] Comment on above: Performed By: #### C UU, ADDONUAPLUS, UCREA, YUN, UROSMO #### [address] Urea nitrogen [Mass/Vol] 18 mg/dL Normal 9-23 [facility] Comment on above: Performed By: #### C UU, ADDONUAPLUS, UCREA, YUN, UROSMO #### [address] Complete Blood Count Auto Di ffon 11-07-2021 Basophils (Bld) [#/Vol] 0.1 10*3/uL Normal 0.0-0.2 [facility] Comment on above: Performed By: #### C UU, ADDONUAPLUS, UCREA, YUN, UROSMO #### [place] [address] [place] Basophils/100 WBC (Bld) 0.6 % Normal . [facility] Comment on above: Performed By: #### C UU, ADDONUAPLUS, UCREA, YUN, UROSMO #### [address] Eosinophils (Bld) [#/Vol] 0.2 10*3/uL Normal 0.0-0.45 [facility] Comment on above: Performed By: #### C UU, ADDONUAPLUS, UCREA, YUN, UROSMO #### [address] Eosinophils/100 WBC (Bld) 1.9 % Normal . [facility] Comment on above: Performed By: #### C UU, ADDONUAPLUS, UCREA, YUN, UROSMO #### [address] Erythrocyte distribution width (RBC) [Ratio] 15.6 % High 11.9-15.3 [facility] Comment on above: Performed By: #### C UU, ADDONUAPLUS, UCREA, YUN, UROSMO #### [address] Hematocrit (Bld) [Volume fraction] 21.8 % Low 34.0-46.4 [facility] Comment on above: Performed By: #### C UU, ADDONUAPLUS, UCREA, YUN, UROSMO #### [address] Hemoglobin (Bld) [Mass/Vol] 7.4 g/dL Low 11.8-15.4 [facility] Comment on above: Performed By: #### C UU, ADDONUAPLUS, UCREA, YUN, UROSMO #### [address] Lymphocytes (Bld) [#/Vol] 0.8 10*3/uL Low 1.00-4.8 [facility] Comment on above: Performed By: #### C UU, ADDONUAPLUS, UCREA, YUN, UROSMO #### [address] Lymphocytes/100 WBC (Bld) 9.2 % Normal . [facility] Comment on above: Performed By: #### C UU, ADDONUAPLUS, UCREA, YUN, UROSMO #### [facility] [address] MCH (RBC) [Entitic mass] 33.8 pg Normal 24.7-34.3 [facility] Comment on above: Performed By: #### C UU, ADDONUAPLUS, UCREA, YUN, UROSMO #### [address] MCV (RBC) [Entitic vol] 100.2 fL High 80-100 [facility] Comment on above: Performed By: #### C UU, ADDONUAPLUS, UCREA, YUN, UROSMO #### [address] Mean Corpuscular HGB Conc 33.8 g/dL Normal 32.0-35.0 [facility] Comment on above: Performed By: #### C UU, ADDONUAPLUS, UCREA, YUN, UROSMO #### [address] Monocytes (Bld) [#/Vol] 0.9 10*3/uL High 0.0-0.8 [facility] Comment on above: Performed By: #### C UU, ADDONUAPLUS, UCREA, YUN, UROSMO #### [address] Monocytes/100 WBC (Bld) 9.5 % Normal . [facility] Comment on above: Performed By: #### C UU, ADDONUAPLUS, UCREA, YUN, UROSMO #### [address] Neutrophils (Bld) [#/Vol] 7.2 10*3/uL Normal 1.8-7.7 [facility] Comment on above: Performed By: #### C UU, ADDONUAPLUS, UCREA, YUN, UROSMO #### [facility] [address] Neutrophils/100 WBC (Bld) 78.8 % Normal . [facility] Comment on above: Performed By: #### C UU, ADDONUAPLUS, UCREA, YUN, UROSMO #### [facility] [address] Nucleated RBC/100 WBC (Bld) [Ratio] 0.2 % Normal 0-0.5 [facility] Comment on above: Performed By: #### C UU, ADDONUAPLUS, UCREA, YUN, UROSMO #### [facility] [address] Platelet mean volume (Bld) [Entitic vol] 7.1 fL Normal 6.3-10.7 [facility] Comment on above: Performed By: #### C UU, ADDONUAPLUS, UCREA, YUN, UROSMO #### [facility] [address] Platelets (Bld) [#/Vol] 212 10*3/uL Normal 150-450 [facility] Comment on above: Performed By: #### C UU, ADDONUAPLUS, UCREA, YUN, UROSMO #### [address] RBC (Bld) [#/Vol] 2.17 10*6/uL Low 3.60-5.00 [facility] Comment on above: Performed By: #### C UU, ADDONUAPLUS, UCREA, YUN, UROSMO #### [facility] [address] [place] [address] [place] WBC (Bld) [#/Vol] 9.1 10*3/uL Normal 4.5-11.0 [facility] Comment on above: Performed By: #### C UU, ADDONUAPLUS, UCREA, YUN, UROSMO #### [facility] [address] [place] [address] Haptoglobinon 11-07-2021 Haptoglobin 245 mg/dL Normal 37-246 [facility] Comment on above: Result Comment: PERF ORMED BY: [place] [address] PATHOLOGIST SHIRT SEWER GERA CASTELLANOS M.D. Performed By: #### C UU, ADDONUAPLUS, UCREA, YUN, UROSMO #### [address] Hemoglobin and Hematocriton 11-07-2021 Hematocrit (Bld) [Volume fraction] 21.8 % Low 34.0-46.4 [facility] Comment on above: Result Comment: PERF ORMED BY: [place] [address] PATHOLOGIST SHIRT SEWER GERA CASTELLANOS M.D. Performed By: #### C UU, ADDONUAPLUS, UCREA, YUN, UROSMO #### [address] Hemoglobin (Bld) [Mass/Vol] 7.3 g/dL Low 11.8-15.4 [facility] Comment on above: Performed By: #### C UU, ADDONUAPLUS, UCREA, YUN, UROSMO #### [address] Iron and TIBC Profileon 10-11 % Iron Saturation 14.0 % Low 20-50 [facility] Comment on above: Performed By: #### C UU, ADDONUAPLUS, UCREA, YUN, UROSMO #### [address] Iron [Mass/Vol] 44 ug/dL Normal 40-150 [facility] Comment on above: Performed By: #### C UU, ADDONUAPLUS, UCREA, YUN, UROSMO #### [address] Total Iron Binding Capacity 295 ug/dL Normal 255-450 [facility] Comment on above: Performed By: #### C UU, ADDONUAPLUS, UCREA, YUN, UROSMO #### [facility] [address] [place] [id number] [facility] Transferrin [Mass/Vol] 211 mg/dL Normal 180-380 [facility] Comment on above: Result Comment: PERF ORMED BY: [address] [place] [address] PATHOLOGIST SHIRT SEWER GERA CASTELLANOS M.D. Performed By: #### C UU, ADDONUAPLUS, UCREA, YUN, UROSMO #### [facility] [address] [place] [id number] [facility] Kyler 11-07-2021 L - -------- Specimen: [id number] Received: 11/07/21 Status: BEL Bergman Num: [id number] Spec Type: Impression Subm Dr: Aissatou Sotelo MD Tissues: PATHBBK Procedures: PATHREVIEW -------- Patient Age/Sex Location Account Attending Physician -------- NascimentoLinda boothe Lisa 71/F 3T [id number] Javi Pearson MD -------- SPEC NUM: [id number] RECD: 11/07/21 STATUS: BEL BERGMAN NUM: [id number] SYLVIA: 11/07/21 DR: Aissatou Sotelo MD ENTERED: 11/07/[address]: Ave Mehta MD SPEC TYPE: Impression DEPT: AR ORDERED: PATHREVIEW ORDERED: PATHREVIEW Pathologist Review Moderate macrocytic normochromic anemia with mild anisocytosis. Rare ovalocytes and basophilic stippling are noted. Liver disease, vitamin B-12/folate deficiency, renal insufficiency and drug effect should be considered. Mild neutrophilia with occasional toxic granulation, favor reactive etiology. [id number] -------- -------- Specimen: [id number] Received: 11/07/21 Status: BEL Bergman Num: [id number] Spec Type: Impression Subm Dr: Aissatou Sotelo MD Tissues: PATHBBK Procedures: PATHREVIEW -------- Patient: Linda Nascimento [id number] (Continued) -------- Signed (signature on file) Gera Castellanos MD 11/09/21 1158 Normal [facility] LDH Lactate Dehydrogenaseon 11-07-2021 LDH Lactate Dehydrogenase 184 U/L Normal 45-190 [facility] Comment on above: Performed By: #### C SHELBIE, BRUNILDA, UCREA, YUN, UROSMO #### [facility] [address] [place] [address] Pathologist Slide Reviewon 0 11-07-2021 Pathologist Slide Review Ordered Path Review Normal [facility] Comment on above: Result Comment: PERF ORMED BY: [place] [address] PATHOLOGIST SHIRT SEWER GERA CASTELLANOS M.D. Performed By: #### C SHELBIE, BRUNILDA, SYLVIAREA, YUN, UROSMO #### [facility] [address] Reticulocyte Counton 022 Reticulocyte Number 0.062 10*6/uL Normal 0.024-0.084 [facility] Comment on above: Result Comment: PERF ORMED BY: [place] [address] PATHOLOGIST SHIRT SEWER GERA CASTELLANOS M.D. Performed By: #### C UU, ADDONUAPLUS, UCREA, YUN, UROSMO #### [address] Reticulocyte Percent 2.8 % High 0.5-1.5 [facility] Comment on above: Performed By: #### C UU, ADDONUAPLUS, UCREA, YUN, UROSMO #### [address] Stool Occult Blood (Immuno)o n 11-07-2021 Stool Occult Blood (Immuno) Occult Blood (Immuno) Positive for Occult Blood by Immunochemical Methodology Reference range = Negative PERFORMED BY: [place] [address] PATHOLOGIST SHIRT SEWER GERA CASTELLANOS M.D. [facility] Comment on above: Performed By: #### C UU, ADDONUAPLUS, UCREA, YUN, UROSMO #### [address] Basic Metabolic Panelon 10-11 Calcium [Mass/Vol] 8.8 mg/dL Normal 8.2-10.2 [facility] Comment on above: Performed By: #### C UU, ADDONUAPLUS, UCREA, YUN, UROSMO #### [address] Chloride [Moles/Vol] 103 mmol/L Normal 95-114 [facility] Comment on above: Performed By: #### C UU, ADDONUAPLUS, UCREA, YUN, UROSMO #### [place] [address] [place] CO2 [Moles/Vol] 23.7 mmol/L Normal 22.0-30.0 [facility] Comment on above: Performed By: #### C UU, ADDONUAPLUS, UCREA, YUN, UROSMO #### [facility] [address] [place] [id number] [facility] Creatinine [Mass/Vol] 0.94 mg/dL Normal 0.44-1.03 [facility] Comment on above: Performed By: #### C UU, ADDONUAPLUS, UCREA, YUN, UROSMO #### [facility] [address] Creatinine Clr Calc Pharmacy 67.79 [facility] Comment on above: Result Comment: PERF ORMED BY: [place] [address] PATHOLOGIST SHIRT SEWER GERA CASTELLANOS M.D. Performed By: #### C UU, ADDONUAPLUS, UCREA, YUN, UROSMO #### [facility] [address] Estimated GFR ( Neela > 60 [facility] Comment on above: Result Comment: GFR estimated reference range: According to KDOQI guidelines, <60 ml/min/1.73m2 is sufficient to diagnose a patient with chronic kidney disease. Performed By: #### C UU, ADDONUAPLUS, UCREA, YUN, UROSMO #### [facility] [address] [place] [address] [place] Estimated GFR (Non- Am 58 [facility] Comment on above: Performed By: #### C UU, ADDONUAPLUS, UCREA, YUN, UROSMO #### [facility] [address] Glucose [Mass/Vol] 107 mg/dL High 70-100 [facility] Comment on above: Result Comment: [place] Glucose Reference Range is dependent on time and content of last meal. Glucose of more than 200 mg/dL in a nonstressed, ambulatory subject supports the diagnosis of Diabetes Mellitus. ADA recommended reference range Performed By: #### C UU, ADDONUAPLUS, UCREA, YUN, UROSMO #### [address] Potassium [Moles/Vol] 4.7 mmol/L Normal 3.5-5.1 [facility] Comment on above: Performed By: #### C UU, ADDONUAPLUS, UCREA, YUN, UROSMO #### [facility] [address] Sodium [Moles/Vol] 133 mmol/L Low 136-146 [facility] Comment on above: Performed By: #### C UU, ADDONUAPLUS, UCREA, YUN, UROSMO #### [address] Urea nitrogen [Mass/Vol] 23 mg/dL Normal 9-23 [facility] Comment on above: Performed By: #### C UU, ADDONUAPLUS, UCREA, YUN, UROSMO #### [address] Hemoglobin and Hematocriton 11-06-2021 Hematocrit (Bld) [Volume fraction] 23.7 % Low 34.0-46.4 [facility] Comment on above: Result Comment: PERF ORMED BY: [place] [address] PATHOLOGIST SHIRT SEWER GERA CASTELLANOS M.D. Performed By: #### C UU, ADDONUAPLUS, UCREA, YUN, UROSMO #### [address] Hemoglobin (Bld) [Mass/Vol] 8.1 g/dL Low 11.8-15.4 [facility] Comment on above: Performed By: #### C UU, ADDONUAPLUS, UCREA, YUN, UROSMO #### [address] Hematocrit (Bld) [Volume fraction] 22.3 % Low 34.0-46.4 [facility] Comment on above: Result Comment: PERF ORMED BY: [place] [address] PATHOLOGIST SHIRT SEWER GERA CASTELLANOS M.D. Performed By: #### C UU, ADDONUAPLUS, UCREA, YUN, UROSMO #### [facility] [address] Hemoglobin (Bld) [Mass/Vol] 7.7 g/dL Low 11.8-15.4 [facility] Comment on above: Performed By: #### C UU, ADDONUAPLUS, UCREA, YUN, UROSMO #### [address] Osmolality, Urineon 11-07-19 22 Osmolality, Urine 357 mosm Normal 250-900 [facility] Comment on above: Result Comment: PERF ORMED BY: [place] [address] PATHOLOGIST SHIRT SEWER GERA CASTELLANOS M.D. Performed By: #### C UU, ADDONUAPLUS, UCREA, YUN, UROSMO #### [address] Sodium, Urineon 11-06-2021 Sodium (U) [Moles/Vol] 15.0 mmol/L Normal [facility] Comment on above: Result Comment: No r eference range established PERFORMED BY: [place] [address] PATHOLOGIST SHIRT SEWER GERA CASTELLANOS M.D. Performed By: #### C UU, ADDONUAPLUS, UCREA, UYN, UROSMO #### [address] Basic Metabolic Panelon 05- Calcium [Mass/Vol] 8.4 mg/dL Normal 8.2-10.2 [facility] Comment on above: Performed By: #### C UU, ADDONUAPLUS, UCREA, YUN, UROSMO #### [address] Chloride [Moles/Vol] 99 mmol/L Normal 95-114 [facility] Comment on above: Performed By: #### C UU, ADDONUAPLUS, UCREA, YUN, UROSMO #### [facility] [address] CO2 [Moles/Vol] 22.4 mmol/L Normal 22.0-30.0 [facility] Comment on above: Performed By: #### C UU, ADDONUAPLUS, UCREA, YUN, UROSMO #### [facility] [address] Creatinine [Mass/Vol] 1.29 mg/dL High 0.44-1.03 [facility] Comment on above: Performed By: #### C UU, ADDONUAPLUS, UCREA, YUN, UROSMO #### [facility] [address] Creatinine Clr Calc Pharmacy 48.68 [facility] Comment on above: Result Comment: PERF ORMED BY: [place] [address] PATHOLOGIST SHIRT SEWER GERA CASTELLANOS M.D. Performed By: #### C UU, ADDONUAPLUS, UCREA, YUN, UROSMO #### [facility] [address] Estimated GFR ( Neela 49 [facility] Comment on above: Result Comment: GFR estimated reference range: According to KDOQI guidelines, <60 ml/min/1.73m2 is sufficient to diagnose a patient with chronic kidney disease. Performed By: #### C UU, ADDONUAPLUS, UCREA, YUN, UROSMO #### [facility] [address] [place] [address] [place] Estimated GFR (Non- Am 41 [facility] Comment on above: Performed By: #### C UU, ADDONUAPLUS, UCREA, YUN, UROSMO #### [facility] [address] [place] [address] [place] Glucose [Mass/Vol] 124 mg/dL High 70-100 [facility] Comment on above: Result Comment: [place] Glucose Reference Range is dependent on time and content of last meal. Glucose of more than 200 mg/dL in a nonstressed, ambulatory subject supports the diagnosis of Diabetes Mellitus. ADA recommended reference range Performed By: #### C UU, ADDONUAPLUS, UCREA, YUN, UROSMO #### [facility] [address] Potassium [Moles/Vol] 5.1 mmol/L Normal 3.5-5.1 [facility] Comment on above: Performed By: #### C UU, ADDONUAPLUS, UCREA, YUN, UROSMO #### [facility] [address] Sodium [Moles/Vol] 129 mmol/L Low 136-146 [facility] Comment on above: Performed By: #### C UU, ADDONUAPLUS, UCREA, YUN, UROSMO #### [facility] [address] Urea nitrogen [Mass/Vol] 27 mg/dL High 9-23 [facility] Comment on above: Performed By: #### C UU, ADDONUAPLUS, UCREA, YUN, UROSMO #### [address] Complete Blood Count Auto Di ffon 11-05-2021 Basophils (Bld) [#/Vol] 0.0 10*3/uL Normal 0.0-0.2 [facility] Comment on above: Result Comment: PERF ORMED BY: [place] [address] PATHOLOGIST SHIRT SEWER GERA CASTELLANOS M.D. Performed By: #### C UU, ADDONUAPLUS, UCREA, YUN, UROSMO #### [address] Basophils/100 WBC (Bld) 0.2 % Normal . [facility] Comment on above: Performed By: #### C UU, ADDONUAPLUS, UCREA, YUN, UROSMO #### [facility] [address] Eosinophils (Bld) [#/Vol] 0.1 10*3/uL Normal 0.0-0.45 [facility] Comment on above: Performed By: #### C UU, ADDONUAPLUS, UCREA, YUN, UROSMO #### [address] Eosinophils/100 WBC (Bld) 0.9 % Normal . [facility] Comment on above: Performed By: #### C UU, ADDONUAPLUS, UCREA, YUN, UROSMO #### [address] Erythrocyte distribution width (RBC) [Ratio] 14.9 % Normal 11.9-15.3 [facility] Comment on above: Performed By: #### C UU, ADDONUAPLUS, UCREA, YUN, UROSMO #### [address] Hematocrit (Bld) [Volume fraction] 21.0 % Low 34.0-46.4 [facility] Comment on above: Performed By: #### C UU, ADDONUAPLUS, UCREA, YUN, UROSMO #### [address] Hemoglobin (Bld) [Mass/Vol] 6.9 g/dL Low 11.8-15.4 [facility] Comment on above: Performed By: #### C UU, ADDONUAPLUS, UCREA, YUN, UROSMO #### [address] Lymphocytes (Bld) [#/Vol] 0.5 10*3/uL Low 1.00-4.8 [facility] Comment on above: Performed By: #### C UU, ADDONUAPLUS, UCREA, YUN, UROSMO #### [address] Lymphocytes/100 WBC (Bld) 5.3 % Normal . [facility] Comment on above: Performed By: #### C UU, ADDONUAPLUS, UCREA, YUN, UROSMO #### [facility] [address] MCH (RBC) [Entitic mass] 33.1 pg Normal 24.7-34.3 [facility] Comment on above: Performed By: #### C UU, ADDONUAPLUS, UCREA, YUN, UROSMO #### [address] MCV (RBC) [Entitic vol] 100.2 fL High 80-100 [facility] Comment on above: Performed By: #### C UU, ADDONUAPLUS, UCREA, YUN, UROSMO #### [address] Mean Corpuscular HGB Conc 33.1 g/dL Normal 32.0-35.0 [facility] Comment on above: Performed By: #### C UU, ADDONUAPLUS, UCREA, YUN, UROSMO #### [facility] [address] [place] [address] Monocytes (Bld) [#/Vol] 0.8 10*3/uL Normal 0.0-0.8 [facility] Comment on above: Performed By: #### C UU, ADDONUAPLUS, UCREA, YUN, UROSMO #### [address] Monocytes/100 WBC (Bld) 8.6 % Normal . [facility] Comment on above: Performed By: #### C UU, ADDONUAPLUS, UCREA, YUN, UROSMO #### [facility] [address] [place] [address] Neutrophils (Bld) [#/Vol] 7.6 10*3/uL Normal 1.8-7.7 [facility] Comment on above: Performed By: #### C UU, ADDONUAPLUS, UCREA, YUN, UROSMO #### [facility] [address] Neutrophils/100 WBC (Bld) 85.0 % Normal . [facility] Comment on above: Performed By: #### C UU, ADDONUAPLUS, UCREA, YUN, UROSMO #### [facility] [address] Nucleated RBC/100 WBC (Bld) [Ratio] 0.0 % Normal 0-0.5 [facility] Comment on above: Performed By: #### C UU, ADDONUAPLUS, UCREA, YUN, UROSMO #### [facility] [address] Platelet mean volume (Bld) [Entitic vol] 7.3 fL Normal 6.3-10.7 [facility] Comment on above: Performed By: #### C UU, ADDONUAPLUS, UCREA, YNU, UROSMO #### [facility] [address] Platelets (Bld) [#/Vol] 197 10*3/uL Normal 150-450 [facility] Comment on above: Performed By: #### C UU, ADDONUAPLUS, UCREA, YUN, UROSMO #### [facility] [address] RBC (Bld) [#/Vol] 2.10 10*6/uL Low 3.60-5.00 [facility] Comment on above: Performed By: #### C UU, ADDONUAPLUS, UCREA, YUN, UROSMO #### [facility] [address] [place] [address] [place] WBC (Bld) [#/Vol] 8.9 10*3/uL Normal 4.5-11.0 [facility] Comment on above: Performed By: #### C UU, ADDONUAPLUS, UCREA, YUN, UROSMO #### [facility] [address] Creatinine, Urine (Random)on 11-05-2021 Creatinine, Urine (Random) 47.6 mg/dL Normal [facility] Comment on above: Result Comment: No r eference range established Performed By: #### C UU, ADDONUAPLUS, UCREA, YUN, UROSMO #### [facility] [address] [place] [address] [place] Dipstick and Microscopicon 0 11-05-2021 Appearance (U) Clear Normal Clear [facility] Comment on above: Order Comment: Name Collection Type:: Voided Performed By: #### C UU, ADDONUAPLUS, UCREA, YUN, UROSMO #### [facility] [address] Bacteria,Urine None Seen Normal None Seen [facility] Comment on above: Order Comment: Name Collection Type:: Voided Performed By: #### C UU, ADDONUAPLUS, UCREA, YUN, UROSMO #### [facility] [address] Bilirubin,Urine Negative Normal Negative [facility] Comment on above: Order Comment: Name Collection Type:: Voided Performed By: #### C UU, ADDONUAPLUS, UCREA, YUN, UROSMO #### [facility] [address] Color (U) Yellow Normal Yellow [facility] Comment on above: Order Comment: Name Collection Type:: Voided Performed By: #### C UU, ADDONUAPLUS, UCREA, YUN, UROSMO #### [facility] [address] Glucose Ql (U) Normal Normal Normal [facility] Comment on above: Order Comment: Name Collection Type:: Voided Performed By: #### C UU, ADDONUAPLUS, UCREA, YUN, UROSMO #### [facility] [address] [place] [address] [place] Hyaline Casts,Urine 0-8 Normal 0-8 [facility] Comment on above: Order Comment: Name Collection Type:: Voided Result Comment: PERF ORMED BY: [place] [address] PATHOLOGIST SHIRT SEWER GERA CASTELLANOS M.D. Performed By: #### C UU, ADDONUAPLUS, UCREA, YUN, UROSMO #### [address] Ketones Ql (U) Negative Normal Negative [facility] Comment on above: Order Comment: Name Collection Type:: Voided Performed By: #### C UU, ADDONUAPLUS, UCREA, YUN, UROSMO #### [address] Leukocyte esterase Test strip Ql (U) 1+ High Negative [facility] Comment on above: Order Comment: Name Collection Type:: Voided Performed By: #### C UU, ADDONUAPLUS, UCREA, YUN, UROSMO #### [address] Nitrite,Urine Negative Normal Negative [facility] Comment on above: Order Comment: Name Collection Type:: Voided Performed By: #### C UU, ADDONUAPLUS, UCREA, YUN, UROSMO #### [address] Occult Blood,Urine Negative Normal Negative [facility] Comment on above: Order Comment: Name Collection Type:: Voided Result Comment: PERF ORMED BY: [place] [address] PATHOLOGIST SHIRT SEWER GERA CASTELLANOS M.D. Performed By: #### C UU, ADDONUAPLUS, UCREA, YUN, UROSMO #### [address] pH (U) 5.5 [pH] Normal 5.0-9.0 [facility] Comment on above: Order Comment: Name Collection Type:: Voided Performed By: #### C UU, ADDONUAPLUS, UCREA, YUN, UROSMO #### [address] Protein,Urine Negative Normal Negative [facility] Comment on above: Order Comment: Name Collection Type:: Voided Performed By: #### C UU, ADDONUAPLUS, UCREA, YUN, UROSMO #### [address] RBC,Urine 1-2 Normal 0-4 [facility] Comment on above: Order Comment: Name Collection Type:: Voided Performed By: #### C UU, ADDONUAPLUS, UCREA, YUN, UROSMO #### [address] Specificy [place],Urine 1.008 Normal 1.001-1.030 [facility] Comment on above: Order Comment: Name Collection Type:: Voided Performed By: #### C UU, ADDONUAPLUS, UCREA, YUN, UROSMO #### [address] Squamous Epithelial Cell,Urine 0-1 Normal 0-2 [facility] Comment on above: Order Comment: Name Collection Type:: Voided Performed By: #### C UU, ADDONUAPLUS, UCREA, YUN, UROSMO #### [address] Urobilinogen,Urine Normal Normal Normal [facility] Comment on above: Order Comment: Name Collection Type:: Voided Performed By: #### C UU, ADDONUAPLUS, UCREA, YUN, UROSMO #### [address] WBC,Urine 5-9 High 0-4 [facility] Comment on above: Order Comment: Name Collection Type:: Voided Performed By: #### C UU, ADDONUAPLUS, UCREA, YUN, UROSMO #### [address] Hemoglobin and Hematocriton 11-05-2021 Hematocrit (Bld) [Volume fraction] 22.8 % Low 34.0-46.4 [facility] Comment on above: Result Comment: PERF ORMED BY: [facility] [address] [place] [address] PATHOLOGIST SHIRT SEWER GERA CASTELLANOS M.D. Performed By: #### C UU, ADDONUAPLUS, UCREA, YUN, UROSMO #### [address] Hemoglobin (Bld) [Mass/Vol] 7.8 g/dL Low 11.8-15.4 [facility] Comment on above: Performed By: #### C UU, ADDONUAPLUS, UCREA, YUN, UROSMO #### [address] Hematocrit (Bld) [Volume fraction] 25.3 % Low 34.0-46.4 [facility] Comment on above: Result Comment: PERF ORMED BY: [place] [address] PATHOLOGIST SHIRT SEWER GERA CASTELLANOS M.D. Performed By: #### C UU, ADDONUAPLUS, UCREA, YUN, UROSMO #### [address] Hemoglobin (Bld) [Mass/Vol] 8.5 g/dL Low 11.8-15.4 [facility] Comment on above: Performed By: #### C UU, ADDONUAPLUS, UCREA, YUN, UROSMO #### [place] [address] [place] Osmolality, Urineon 11-06-19 Osmolality, Urine 207 mosm Low 250-900 [facility] Comment on above: Result Comment: PERF ORMED BY: [place] [address] PATHOLOGIST SHIRT SEWER GERA CASTELALNOS M.D. Performed By: #### C UU, ADDONUAPLUS, UCREA, YUN, UROSMO #### [address] Sodiumon 11-05-2021 Sodium [Moles/Vol] 131 mmol/L Low 136-146 [facility] Comment on above: Result Comment: PERF ORMED BY: [place] [address] PATHOLOGIST SHIRT SEWER GERA CASTELLANOS M.D. Performed By: #### C UU, ADDONUAPLUS, UCREA, YUN, UROSMO #### [facility] [address] Sodium [Moles/Vol] 131 mmol/L Low 136-146 [facility] Comment on above: Result Comment: PERF ORMED BY: [place] [address] PATHOLOGIST SHIRT SEWER GERA CASTELLANOS M.D. Performed By: #### C UU, ADDONUAPLUS, UCREA, YUN, UROSMO #### [facility] [address] [place] [address] Sodium [Moles/Vol] 126 mmol/L Low 136-146 [facility] Comment on above: Result Comment: PERF ORMED BY: [place] [address] PATHOLOGIST SHIRT SEWER GERA CASTELLANOS M.D. Performed By: #### N A #### [address] Sodium, Urine (Random)on Sodium, Urine (Random) < 10 Normal [facility] Comment on above: Result Comment: No r eference range established PERFORMED BY: [place] [address] PATHOLOGIST SHIRT SEWER GERA CASTELLANOS M.D. Performed By: #### C UU, ADDONUAPLUS, UCREA, YUN, UROSMO #### [facility] [address] [place] [address] Urine Cultureon 11-05-2021 Bacteria identified Cx Nom (U) 75,000 colonies/ml mixed bacterial skin contaminants including mixed gram negative bacilli - 2 Days PERFORMED BY: [place] [id number] PATHOLOGIST SHIRT SEWER GERA CASTELLANOS M.D. Normal [facility] Comment on above: Performed By: #### C UU, ADDONUAPLUS, UCREA, YUN, UROSMO #### [facility] [address] [place] [id number] [facility] ABO/Rh Retypeon 11-04-2021 ABO/RH Recheck Result Positive [facility] Comment on above: Result Comment: PERF ORMED BY: [facility] [address] [place] [address] PATHOLOGIST SHIRT SEWER GERA CASTELLANOS M.D. COVID-19 Antigenon 2 COVID-19 Antigen Healthcare Worker?: N Reference Range: Negative Negative results, from patients with symptom onset beyond five days, should be treated as presumptive and confirmation with a molecular assay, if necessary, for patient management, may be performed. Negative results do not rule out COVID-19 and should not be used as the sole basis for treatment or patient management decisions, including infection control decisions. Negative results should be considered in the context of a patient's recent exposures, history and the presence of clinical signs and symptoms consistent with COVID-19. The [employer] SARS Antigen [facility] does not differentiate between SARS-CoV and SARS-CoV-2. This test was developed and its performance characteristic determined by [employer] and validated at [facility]. This test has not been FDA cleared or approved. This test has been authorized by FDA under an Emergency Use Authorization (EUA). This test has been validated in accordance with the FDA's Guidance Document (Policy for Diagnostics Testing in Laboratories Certified to Perform High Complexity Testing under CLIA prior to Emergency Use Authorization for Coronavirus Disease-2019 during the Public Health Emergency) issued on September 12, 2019. This test is only authorized for the duration of time the declaration that circumstances exist justifying the authorization of the emergency use of in vitro diagnostic tests for detection of SARS-CoV-2 virus and/or diagnosis of COVID-19 infection under section 564(b)(1) of the Act, 21 U.S.C. 360bbb-3(b)(1), unless the authorization is terminated or revoked sooner. SARS-CoV+SARS-CoV-2 (COVID-19) Ag [Presence] in Respiratory specimen by Rapid immunoassay Negative for SARS Antigen by [facility] PERFORMED BY: [place] [address] PATHOLOGIST SHIRT SEWER GERA CASTELLANOS M.D. Normal [facility] Comment on above: Performed By: #### C UU, ADDONUAPLUS, UCREA, YUN, UROSMO #### [facility] [address] [place] [id number] [facility] COVID-19 FRon 11-04-2021 SARS-CoV-2 (COVID-19) RNA DONNIE+probe Ql (Unsp spec) Negative Normal Negative [facility] Comment on above: Order Comment: Healt hcare Worker?: N Result Comment: Testing for SARS-CoV-2 by RT-PCR This test was developed and its performance characteristics determined by [employer] and validated at the [facility]. This test has not been FDA cleared or approved. This test has been authorized by FDA under an Emergency Use Authorization (EUA). This test has been validated in accordance with the FDA's Guidance Document (Policy for Diagnostics Testing in Laboratories Certified to Perform High Complexity Testing under CLIA prior to Emergency Use Authorization for Coronavirus Disease-2019 during the Public Health Emergency) issued on September 12, 2019. This test is only authorized for the duration of time the declaration that circumstances exist justifying the authorization of the emergency use of in vitro diagnostic tests for detection of SARS-CoV-2 virus and/or diagnosis of COVID-19 infection under section 564(b)(1) of the Act, 21 U.S.C. 360bbb-3(b)(1), unless the authorization is terminated or revoked sooner. PERFORMED BY: [place] [address] PATHOLOGIST SHIRT SEWER GERA CASTELLANOS M.D. Performed By: #### C UU, ADDONUAPLUS, UCREA, YUN, UROSMO #### [facility] [address] [place] [id number] [facility] CT abdomen pelvis wo conon 0 11-04-2021 CT abdomen pelvis wo con [facility] Main [place] [address] [place] [address] CT Scan Report Signed Patient: Linda Nascimento MR#: [id number] : 1950 Acct:[id number] Age/Sex: 71 / F ADM Date: 11/04/21 Loc: Room: [address] [place] [address] Type: ADM IN Attending Dr: Aissatou Sotelo MD Ordering Provider: Aissatou Sotelo MD Date of Service: 11/04/21 CT/CT abdomen pelvis wo con: anemia Copies to: Aissatou Sotelo MD CT abdomen and pelvis 11/04/2021. CLINICAL DATA: Anemia. Status post fall. TECHNIQUE: CT of the abdomen and pelvis was performed without contrast. Axial, sagittal, and coronal reconstructions were created and reviewed. This CT exam was performed using one or more of the following dose reduction techniques: Automated exposure control, adjustment of the mA and/or kV according to patient size, or use of iterative reconstruction technique. COMPARISON: None. FINDINGS: Images of the lower chest are unremarkable. The liver, spleen, pancreas, and both adrenal glands appear unremarkable. There are small cysts in the right kidney. There is a tiny nonobstructing calculus in the left kidney. The urinary bladder appears unremarkable. No acute intestinal abnormality is identified. The appendix appears unremarkable. No abdominal hematoma is seen. No free intra-abdominal air or ascites is visualized. Old lower lumbar vertebral, sacral, and left pubic bone fractures are again noted. There may be an acute displaced fracture of the left transverse process of the L3 vertebra. There are L4 spondylolysis and grade 1 spondylolisthesis at the lumbosacral junction. No abdominal wall abnormality is seen. CT/CT abdomen pelvis wo con IMPRESSION: 1. Right renal cysts and left nephrolithiasis. 2. Multiple old fractures. 3. Possible acute fracture of the left transverse process of the L3 vertebra. Impression dictated by: Marin Haines Jr., M.D.11/04/2021 6:26 PM Dictation Location: [place] [address] Transcribed By: [facility] 11/04/211825 Dictated By: Marin Haines Jr, MD 11/04/211813 Signed By: 11/04/211825 [facility] CT head/brain wo conon 11-04 CT head/brain wo con [facility] [place] [address] CT Scan Report Signed Patient: Linda Nascimento MR#: [id number] : 1950 Acct:[id number] Age/Sex: 71 / F ADM Date: 11/04/21 Loc: Room: [address] [place] [address] Type: ADM IN Attending Dr: Aissatou Sotelo MD Ordering Provider: Aissatou Sotelo MD Date of Service: 11/04/21 CT/CT head/brain wo con: falls Copies to: Aissatou Sotelo MD CT head 11/04/2021. CLINICAL DATA: Status post fall. TECHNIQUE: CT of the head was performed without contrast. This CT exam was performed using one or more of the following dose reduction techniques: Automated exposure control, adjustment of the mA and/or kV according to patient size, or use of iterative reconstruction technique. COMPARISON: None. FINDINGS: There are parenchymal volume loss and relatively mild chronic microvascular ischemic changes. Atherosclerotic disease is noted. There is no acute intracranial hemorrhage. No intracranial mass or mass effect is identified. No abnormal extra-axial fluid collection is seen. The visualized paranasal sinuses and the mastoids appear unremarkable. No scalp hematoma or skull fracture is noted. CT/CT head/brain wo con IMPRESSION: 1. Parenchymal volume loss and chronic microvascular ischemic changes. 2. No acute intracranial abnormality. 3. No scalp hematoma or skull fracture. Impression dictated by: Marin Haines Jr., M.D.11/04/2021 6:14 PM Dictation Location: [place] [address] Transcribed By: [facility] 11/04/211813 Dictated By: Marin Haines Jr, MD 11/04/211810 Signed By: 11/04/211813 [facility] Complete Blood Count Auto Di ffon 11-04-2021 Basophils (Bld) [#/Vol] 0.0 10*3/uL Normal 0.0-0.2 [facility] Comment on above: Order Comment: Name Collection Type:: Voided Result Comment: PERF ORMED BY: [place] [address] PATHOLOGIST SHIRT SEWER GERA CASTELLANOS M.D. Performed By: #### C UU, ADDONUAPLUS, UCREA, YUN, UROSMO #### [address] Basophils/100 WBC (Bld) 0.1 % Normal . [facility] Comment on above: Order Comment: Name Collection Type:: Voided Performed By: #### C UU, ADDONUAPLUS, UCREA, YUN, UROSMO #### [address] Eosinophils (Bld) [#/Vol] 0.0 10*3/uL Normal 0.0-0.45 [facility] Comment on above: Order Comment: Name Collection Type:: Voided Performed By: #### C UU, ADDONUAPLUS, UCREA, YUN, UROSMO #### [address] Eosinophils/100 WBC (Bld) 0.2 % Normal . [facility] Comment on above: Order Comment: Name Collection Type:: Voided Performed By: #### C UU, ADDONUAPLUS, UCREA, YUN, UROSMO #### [address] Erythrocyte distribution width (RBC) [Ratio] 13.5 % Normal 11.9-15.3 [facility] Comment on above: Order Comment: Name Collection Type:: Voided Performed By: #### C UU, ADDONUAPLUS, UCREA, YUN, UROSMO #### [address] Hematocrit (Bld) [Volume fraction] 20.4 % Low 34.0-46.4 [facility] Comment on above: Order Comment: Name Collection Type:: Voided Performed By: #### C UU, ADDONUAPLUS, UCREA, YUN, UROSMO #### [address] Hemoglobin (Bld) [Mass/Vol] 7.0 g/dL Low 11.8-15.4 [facility] Comment on above: Order Comment: Name Collection Type:: Voided Performed By: #### C UU, ADDONUAPLUS, UCREA, YUN, UROSMO #### [address] Lymphocytes (Bld) [#/Vol] 0.5 10*3/uL Low 1.00-4.8 [facility] Comment on above: Order Comment: Name Collection Type:: Voided Performed By: #### C UU, ADDONUAPLUS, UCREA, YUN, UROSMO #### [address] Lymphocytes/100 WBC (Bld) 5.2 % Normal . [facility] Comment on above: Order Comment: Name Collection Type:: Voided Performed By: #### C UU, ADDONUAPLUS, UCREA, YUN, UROSMO #### [address] MCH (RBC) [Entitic mass] 34.8 pg High 24.7-34.3 [facility] Comment on above: Order Comment: Name Collection Type:: Voided Performed By: #### C UU, ADDONUAPLUS, UCREA, YUN, UROSMO #### [address] MCV (RBC) [Entitic vol] 101.9 fL High 80-100 [facility] Comment on above: Order Comment: Name Collection Type:: Voided Performed By: #### C UU, ADDONUAPLUS, UCREA, YUN, UROSMO #### [address] Mean Corpuscular HGB Conc 34.2 g/dL Normal 32.0-35.0 [facility] Comment on above: Order Comment: Name Collection Type:: Voided Performed By: #### C UU, ADDONUAPLUS, UCREA, YUN, UROSMO #### [address] [place] [address] [place] Monocytes (Bld) [#/Vol] 0.7 10*3/uL Normal 0.0-0.8 [facility] Comment on above: Order Comment: Name Collection Type:: Voided Performed By: #### C UU, ADDONUAPLUS, UCREA, YUN, UROSMO #### [facility] [address] [place] [address] [place] Monocytes/100 WBC (Bld) 6.6 % Normal . [facility] Comment on above: Order Comment: Name Collection Type:: Voided Performed By: #### C UU, ADDONUAPLUS, UCREA, YUN, UROSMO #### [place] [address] [place] Neutrophils (Bld) [#/Vol] 8.8 10*3/uL High 1.8-7.7 [facility] Comment on above: Order Comment: Name Collection Type:: Voided Performed By: #### C UU, ADDONUAPLUS, UCREA, YUN, UROSMO #### [facility] [address] [place] [address] [place] Neutrophils/100 WBC (Bld) 87.9 % Normal . [facility] Comment on above: Order Comment: Name Collection Type:: Voided Performed By: #### C UU, ADDONUAPLUS, UCREA, YUN, UROSMO #### [facility] [address] [place] [address] [place] Nucleated RBC/100 WBC (Bld) [Ratio] 0.0 % Normal 0-0.5 [facility] Comment on above: Order Comment: Name Collection Type:: Voided Performed By: #### C UU, ADDONUAPLUS, UCREA, YUN, UROSMO #### [facility] [address] [place] [address] [place] Platelet mean volume (Bld) [Entitic vol] 6.3 fL Normal 6.3-10.7 [facility] Comment on above: Order Comment: Name Collection Type:: Voided Performed By: #### C UU, ADDONUAPLUS, UCREA, YUN, UROSMO #### [facility] [address] Platelets (Bld) [#/Vol] 219 10*3/uL Normal 150-450 [facility] Comment on above: Order Comment: Name Collection Type:: Voided Performed By: #### C UU, ADDONUAPLUS, UCREA, YUN, UROSMO #### [facility] [address] RBC (Bld) [#/Vol] 2.00 10*6/uL Low 3.60-5.00 [facility] Comment on above: Order Comment: Name Collection Type:: Voided Performed By: #### C UU, ADDONUAPLUS, UCREA, YUN, UROSMO #### [address] WBC (Bld) [#/Vol] 10.0 10*3/uL Normal 4.5-11.0 [facility] Comment on above: Order Comment: Name Collection Type:: Voided Performed By: #### C UU, ADDONUAPLUS, UCREA, YUN, UROSMO #### [address] Comprehensive Metabolic Pane kyler 11-04-2021 Albumin [Mass/Vol] 2.8 g/dL Low 3.2-5.5 [facility] Comment on above: Performed By: #### C UU, ADDONUAPLUS, UCREA, YUN, UROSMO #### [address] Albumin/Globulin [Mass ratio] 1.2 {ratio} Normal [facility] Comment on above: Performed By: #### C UU, ADDONUAPLUS, UCREA, YUN, UROSMO #### [address] ALP [Catalytic activity/Vol] 70 U/L Normal 32-92 [facility] Comment on above: Performed By: #### C UU, ADDONUAPLUS, UCREA, YUN, UROSMO #### [facility] [address] ALT [Catalytic activity/Vol] 15 U/L Normal 10-60 [facility] Comment on above: Performed By: #### C UU, ADDONUAPLUS, UCREA, YUN, UROSMO #### [facility] [address] AST [Catalytic activity/Vol] 14 U/L Normal 10-42 [facility] Comment on above: Performed By: #### C UU, ADDONUAPLUS, UCREA, YUN, UROSMO #### [facility] [address] Bilirubin [Mass/Vol] 0.4 mg/dL Normal 0.3-1.2 [facility] Comment on above: Performed By: #### C UU, ADDONUAPLUS, UCREA, YUN, UROSMO #### [facility] [address] Calcium [Mass/Vol] 8.4 mg/dL Normal 8.2-10.2 [facility] Comment on above: Performed By: #### C UU, ADDONUAPLUS, UCREA, YUN, UROSMO #### [facility] [address] Chloride [Moles/Vol] 94 mmol/L Low 95-114 [facility] Comment on above: Performed By: #### C UU, ADDONUAPLUS, UCREA, YUN, UROSMO #### [facility] [address] [place] [address] [place] CO2 [Moles/Vol] 22.9 mmol/L Normal 22.0-30.0 [facility] Comment on above: Performed By: #### C UU, ADDONUAPLUS, UCREA, UYN, UROSMO #### [facility] [address] Creatinine [Mass/Vol] 1.36 mg/dL High 0.44-1.03 [facility] Comment on above: Performed By: #### C UU, ADDONUAPLUS, UCREA, YUN, UROSMO #### [facility] [address] Creatinine Clr [facility].74 [facility] Comment on above: Result Comment: PERF ORMED BY: [place] [address] PATHOLOGIST SHIRT SEWER GERA CASTELLANOS M.D. Performed By: #### C UU, ADDONUAPLUS, UCREA, YUN, UROSMO #### [facility] [address] Estimated GFR ( Neela 46 [facility] Comment on above: Result Comment: GFR estimated reference range: According to KDOQI guidelines, <60 ml/min/1.73m2 is sufficient to diagnose a patient with chronic kidney disease. Performed By: #### C UU, ADDONUAPLUS, UCREA, YUN, UROSMO #### [facility] [address] Estimated GFR (Non- Am 38 [facility] Comment on above: Performed By: #### C UU, ADDONUAPLUS, UCREA, YUN, UROSMO #### [facility] [address] Globulin (S) [Mass/Vol] 2.4 g/dL [facility] Comment on above: Performed By: #### C UU, ADDONUAPLUS, UCREA, YUN, UROSMO #### [address] Glucose [Mass/Vol] 112 mg/dL High 70-100 [facility] Comment on above: Result Comment: [place] Glucose Reference Range is dependent on time and content of last meal. Glucose of more than 200 mg/dL in a nonstressed, ambulatory subject supports the diagnosis of Diabetes Mellitus. ADA recommended reference range Performed By: #### C UU, ADDONUAPLUS, UCREA, YUN, UROSMO #### [facility] [address] Potassium [Moles/Vol] 5.2 mmol/L High 3.5-5.1 [facility] Comment on above: Performed By: #### C UU, ADDONUAPLUS, UCREA, YUN, UROSMO #### [facility] [address] [place] [id number] [facility] Protein [Mass/Vol] 5.2 g/dL Low 6.1-7.9 [facility] Comment on above: Performed By: #### C UU, ADDONUAPLUS, UCREA, YUN, UROSMO #### [facility] [address] Sodium [Moles/Vol] 123 mmol/L Off scale low 136-146 [facility] Comment on above: Result Comment: Resu lts called at 1333 on 11/04/21 Performed By: #### C UU, ADDONUAPLUS, UCREA, YUN, UROSMO #### [facility] [address] Urea nitrogen [Mass/Vol] 24 mg/dL High 9-23 [facility] Comment on above: Performed By: #### C UU, ADDONUAPLUS, UCREA, YUN, UROSMO #### [facility] [address] [place] [id number] [facility] ECG 12 lead ECGon 11-04-2021 ECG 12 lead ECG [facility] Main [place] 1111 [place] [address] Electrocardiograph Report Signed Patient: Linda Nascimento MR#: [id number] 840 : 1950 Acct:[id number] Age/Sex: 71 / F ADM Date: 11/04/21 Loc: Room: [address] [place] [address] Type: DIS IN Attending Dr: Javi Pearosn MD Ordering Provider: Ivan Kendrick DO Date of Service: 11/04/21 ECG/ECG 12 lead ECG: fall Copies to: Test Reason : Blood Pressure : 100/054 mmHG Vent. Rate : 060 BPM Atrial Rate : 064 BPM P-R Int : 000 ms QRS Dur : 182 ms QT Int : 476 ms P-R-T Axes : 000 000 021 degrees QTc Int : 476 ms Atrial-paced rhythm Right bundle branch block Abnormal ECG When compared with ECG of 04-SEP-2020 08:57, Electronic atrial pacemaker has replaced Sinus rhythm Nonspecific T wave abnormality has replaced inverted T waves in Inferior leads Confirmed by Ivan Kendrick DO ([id number]) on 11/04/2021 7:43:30 PM Referred By: Electronically Signed By:Ivan Kendrick DO Transcribed By: MUS Signed By Ivan Kendrick DO 11/04 194 Normal [facility] Ferritinon 11-04-2021 Ferritin [Mass/Vol] 123.0 ng/mL Normal 11-306.8 [facility] Comment on above: Result Comment: PERF ORMED BY: [place] [address] PATHOLOGIST SHIRT SEWER GERA CASTELLANOS M.D. Performed By: #### F E and TIBC, WILDER #### [address] Iron and TIBC Profileon 10-11 % Iron Saturation 21.0 % Normal 20-50 [facility] Comment on above: Performed By: #### F E and TIBC, WILDER #### [address] Iron [Mass/Vol] 64 ug/dL Normal 40-150 [facility] Comment on above: Performed By: #### F E and TIBC, WILDER #### [address] Total Iron Binding Capacity 291 ug/dL Normal 255-450 [facility] Comment on above: Performed By: #### F E and TIBC, WILDER #### [address] Transferrin [Mass/Vol] 208 mg/dL Normal 180-380 [facility] Comment on above: Performed By: #### F E and TIBC, WILDER #### [address] LeukoReduced RBCon 05-26-202 2 LeukoReduced RBC NOT AVAILABLE Normal [facility] Osmolalityon 11-04-2021 Osmolality 271 mosm Low 278-305 [facility] Comment on above: Result Comment: PERF ORMED BY: [place] [address] PATHOLOGIST SHIRT SEWER GERA CASTELLANOS M.D. Performed By: #### C UU, ADDONUAPLUS, UCREA, YUN, UROSMO #### [address] Partial Thromboplastin Timeo n 11-04-2021 aPTT Coag (Bld) [Time] 26.7 s Normal 25.1-36.5 [facility] Comment on above: Result Comment: PERF ORMED BY: [place] [address] PATHOLOGIST SHIRT SEWER GERA CASTELLANOS M.D. Performed By: #### C UU, ADDONUAPLUS, UCREA, YUN, UROSMO #### [address] Potassiumon 11-04-2021 Potassium [Moles/Vol] 4.9 mmol/L Normal 3.5-5.1 [facility] Comment on above: Performed By: #### C UU, ADDONUAPLUS, UCREA, YUN, UROSMO #### [facility] [address] [place] [address] [place] Prothrombin Time INRon 11-04 INR Coag (PPP) [Relative time] 1.0 {INR} Normal [facility] Comment on above: Result Comment: INR Therapeutic Range A) Pre- and Peroperative OAT started two weeks before surgery. NOT HIP SURGERY: 1.5 - 2.5 HIP SURGERY: 2 - 3 B) Primary and secondary prevention of venous THROMBOSIS: 2 - 3 C) Active venous thrombosis, pulmonary embolism and prevention of recurrent venous thrombosis: 2 - 3 D) Prevention of arterial thromboembolism including patients with mechanical heart valves: 3 - 4.5 Performed By: #### C UU, ADDONUAPLUS, UCREA, YUN, UROSMO #### [address] PT Coag (PPP) [Time] 11.8 s Normal 9.0-12.9 [facility] Comment on above: Performed By: #### C UU, ADDONUAPLUS, UCREA, YUN, UROSMO #### [address] Sodiumon 11-04-2021 Sodium [Moles/Vol] 125 mmol/L Low 136-146 [facility] Comment on above: Performed By: #### C UU, ADDONUAPLUS, UCREA, YUN, UROSMO #### [address] Anayeli Ag Negativeon 11-05-19 22 Anayeli Ag Negative Negative Normal Negative [facility] Comment on above: Result Comment: This is a duplicate Anayeli SARS Antigen (LION) result to be used for statistical tracking purpose only. PERFORMED BY: [address] [place] [address] PATHOLOGIST SHIRT SEWER GERA CASTELLANOS M.D. Performed By: #### C UU, ADDONUAPLUS, UCREA, YUN, UROSMO #### [address] Stool Occult Blood (Guaiac)o n 11-04-2021 Stool Occult Blood (Guaiac) Occult Blood Negative for Occult Blood by Guaiac Methodology Reference range = Negative PERFORMED BY: [address] [place] [place] [address] PATHOLOGIST SHIRT SEWER GERA CASTELLANOS M.D. Normal [facility] Comment on above: Performed By: #### C UU, ADDONUAPLUS, UCREA, YUN, UROSMO #### [address] Thyroid Stimulating Hormoneo n 11-04-2021 TSH Qn 0.77 m[IU]/L Normal 0.45-5.33 [facility] Comment on above: Performed By: #### C UU, ADDONUAPLUS, UCREA, YUN, UROSMO #### [facility] [address] [place] [id number] [facility] Troponin I High Sensitivityo n 11-04-2021 Troponin I High Sensitivity 5 pg/mL Normal 0-15 [facility] Comment on above: Result Comment: PERF ORMED BY: [facility] [address] [place] [address] PATHOLOGIST SHIRT SEWER GERA CASTELLANOS M.D. Performed By: #### C UU, ADDONUAPLUS, UCREA, YUN, UROSMO #### [facility] [address] [place] [address] [place] Type and Screenon 11-04-2021 ABO and Rh group Nom (Bld) Blood group O Rh(D) positive Normal [facility] Comment on above: Order Comment: Trans fuse now? N Transfuse now? Y Number of units to transfuse now? 1 Transfuse now? Y Number of units to transfuse now? 1 Transfuse now? Y Number of units to transfuse now? 1 Transfuse now? Y Number of units to transfuse now? 1 Result Comment: PERF ORMED BY: [place] [address] PATHOLOGIST SHIRT SEWER GERA CASTELLANOS M.D. Vitamin B12on 11-04-2021 Cobalamin (Vitamin B12) [Mass/Vol] 882 pg/mL Normal 180-914 [facility] Comment on above: Performed By: #### C UU, ADDONUAPLUS, UCREA, YUN, UROSMO #### [facility] [address] [place] [id number] [place] Vitamin D 25 Hydroxy Totalon 11-04-2021 Vitamin D 25 Hydroxy Total 84.5 ng/mL Normal 30-100 [facility] Comment on above: Result Comment: LOKI MIN D STATUS 25(OH)VITAMIN D RANGE (ng/mL) Deficient <20 Insufficient 20 to <30 Sufficient 30 to 100 Reference: Maryam MF,[place]lin NC, Ángela SCHAEFER, et al. Evaluation,treatment, and prevention of vitamin D deficiency; an Endocrine Society clinical practice guideline. JCEM. 2010; 96(7):1911-30. PERFORMED BY: [place] [address] PATHOLOGIST SHIRT SEWER GERA CASTELLANOS M.D. Performed By: #### C UU, ADDONUAPLUS, UCREA, YUN, UROSMO #### [address] XR hip RT min 2V(w/wo pelvis )*on 11-04-2021 XR hip RT min 2V(w/wo pelvis)* [facility] [place] [address] [place] [address] XRay Report Signed Patient: Linda Nascimento MR#: [id number] 840 : 1950 Acct:[id number] Age/Sex: 71 / F ADM Date: 11/04/21 Loc: ER Room: Type: PRE ER Attending Dr: Ordering Provider: Ivan Kendrick DO Date of Service: 11/04/21 XR/XR hip RT min 2V(w/wo pelvis)*: Fall Copies to: Ivan Kendrick DO 2 views right hip single view pelvisplain film COMPARISON:01/20/2021 HISTORY:Fell. Left knee pain. Old left superior and inferior pubic rami fractures identified. No new fractures identified. Bony alignment adequate.No significant degeneration. Articular surfaces preserved. XR/XR hip RT min 2V(w/wo pelvis)* IMPRESSION:Stable findings. No acute fracture. 4 views of the left knee Advanced degenerative changes present. Small joint effusion seen. No fracture or dislocation. IMPRESSION: No acute findings. Impression dictated by: Ambrocio Cintron M.D.11/04/2021 12:43 PM Dictation Location: [place] [address] Transcribed By: [facility] 11/04/21 1243 Dictated By: Ambrocio Cintron DO 11/04/21 1238 Signed By: 11/04/21 1243 [facility] XR knee LT 4V*on 11-04-2021 XR knee LT 4V* [facility] Main [address] [address] XRay Report Signed Patient: Linda Nascimento MR#: [id number] 840 : 1950 Acct:[id number] Age/Sex: 71 / F ADM Date: 11/04/21 Loc: ER Room: Type: [facility] ER Attending Dr: Ordering Provider: Ivan Kendrick DO Date of Service: 11/04/21 XR/XR knee LT 4V*: fall, pain Copies to: Ivan Kendrick DO 4 views left knee plain film COMPARISON:None HISTORY:Fell injuring left knee. No fracture, dislocation or focal soft tissue abnormality seen.Small joint effusion present. Diffuse soft tissue prominence identified. XR/XR knee LT 4V* IMPRESSION:No acute bony findings. A moderate joint effusion. Extensive degeneration. Impression dictated by: Ambrocio Cintron M.D.11/04/2021 2:36 PM Dictation Location: [place] [address] Transcribed By: [facility] 11/04/21 1436 Dictated By: Ambrocio Cintron DO 11/04/21 1433 Signed By: 11/04/21 1436 [facility] XR knee LT 2Von 11-03-2021 XR knee LT 2V [facility] Main [address] [address] XRay Report Signed Patient: Linda Nascimento MR#: [id number] 840 : 1950 Acct:[id number] Age/Sex: 71 / F ADM Date: 11/03/21 Loc: SOXD Room: Type: [facility] CLI Attending Dr: Emilie CASTLEC Ordering Provider: MYRNA Rodriguez Date of Service: 11/03/21 XR/XR knee LT 2V: PAIN Copies to: MYRNA Rodriguez XR knee LT 2V 11/03/2021 3:49 PM SIGNS AND SYMPTOMS: Left knee pain with bruising and swelling anteriorly PROTOCOL: Frontal and lateral radiographs of the left knee COMPARISON: 02/25/2020 FINDINGS: There is severe narrowing of the weightbearing joint space medially, similar to the prior exam. There is mild tricompartmental spurring. There is severe patellofemoral joint space loss. There is a small joint effusion. Diffuse soft tissue swelling is noted. There is no fracture or dislocation. XR/XR knee LT 2V IMPRESSION: Significant tricompartmental degenerative changes are redemonstrated with a slightly larger joint effusion and slightly more overlying soft tissue swelling. No acute bony injury. Impression dictated by: Reymundo Madrid M.D.11/03/2021 4:01 PM Dictation Location: [place] [address] Transcribed By: [facility] 11/03/21 1601 Dictated By: Reymundo Madrid II, MD 11/03/21 1600 Signed By: 11/03/21 1601 [facility] MR lumbar spine wo conon MR lumbar spine wo [facility] [place] [address] [place] [address] MRI Report Signed Patient: Linda Nascimento MR#: [id number] 840 : 1950 Acct:[id number] Age/Sex: 71 / F ADM Date: 10/26/21 Loc: Room: Type: [facility] Attending Dr: Gunnar Fernandez DO Ordering Provider: Gunnar Fernandez DO Date of Service: 10/26/21 MR/MR lumbar spine wo con: Spondylolisthesis of lumbar region Copies to: Gunnar Fernandez DO MR lumbar spine wo con 10/26/2021 7:28 AM SIGNS AND SYMPTOMS: Right leg pain with weakness, worsening pain PROTOCOL: Multiplanar multisequence MR images of the lumbar spine were obtained without IV contrast COMPARISON: Pelvis CT 06/04/2020 and lumbar spine radiographs from 10/06/2021 FINDINGS: There is approximately 7 mm of anterolisthesis of L4 upon L5 secondary to facet hypertrophy. There is preservation of vertebral body heights. There is disc desiccation and mild intervertebral disc height loss at T12-L1. Facet edema is noted at L3-4, L4-5, and L5-S1. There is marrow edema along a healed/healing fracture of the left sacral ala which was seen on the prior CT from 06/04/2020. The conus terminates at the superior endplate of the L1 vertebral body level. No epidural or paraspinous fluid collection is appreciated. Simple cysts are noted in the right renal cortex requiring no further follow-up. At T12-L1: There is a mild broad-based disc bulge. There is no significant stenosis. At L1-L2: There is a broad-based disc bulge without significant stenosis. At L2-L3: There is a normal disc, central canal, and neural foramen. At L3-L4: There is a broad-based disc bulge with facet hypertrophy and bilateral facet effusions. There is moderate narrowing of spinal canal with mild to moderate bilateral neural foraminal narrowing. At L4-L5: There is 7 mm of anterolisthesis of L4 upon L5 with a circumferential disc bulge having a greater right subarticular and foraminal component. Bilateral facet degenerative changes are present with bilateral facet effusions. There is an internal synovial cyst arising from the left facet projecting into the posterior aspect of the spinal canal measuring 5 mm in greatest dimension. There is mild to moderate spinal canal stenosis with severe right and moderate left neural foraminal narrowing. There is mass effect on the exiting right L4 nerve roots. At L5-S1: There is a broad-based disc bulge with facet hypertrophy and bilateral facet effusions. There is mild to moderate bilateral neural foraminal narrowing, left greater than right. There is no significant spinal canal narrowing. MR/MR lumbar spine wo con IMPRESSION: At L4-L5: There is 7 mm of anterolisthesis of L4 upon L5 with a circumferential disc bulge having a greater right subarticular and foraminal component. Bilateral facet degenerative changes are present with bilateral facet effusions. There is an internal synovial cyst arising from the left facet projecting into the posterior aspect of the spinal canal measuring 5 mm in greatest dimension. There is mild to moderate spinal canal stenosis with severe right and moderate left neural foraminal narrowing. There is mass effect on the exiting right L4 nerve roots. Lesser degrees of degenerative changes are noted, as above. There is marrow edema along a healed/healing fracture of the left sacral ala which was seen on the prior CT from 06/04/2020. Impression dictated by: Reymundo Madrid M.D.10/26/2021 11:37 AM Dictation Location: [facility] Transcribed By: ROLF 10/26/21 1137 Dictated By: Reymundo Madrid II, MD 10/26/21 1127 Signed By: 10/26/21 1137 [facility] XR lumbar spine AP/LAT/FLX/E XTon 10-06-2021 XR lumbar spine AP/LAT/FLX/EXT [facility] [place] [address] XRay Report Signed Patient: Linda Nascimento MR#: [id number] 840 : 1950 Acct:[id number] Age/Sex: 71 / F ADM Date: 10/06/21 Loc: [facility] Room: Type: [facility] Attending Dr: Gunnar Fernandez DO Ordering Provider: Gunnar Fernandez DO Date of Service: 10/06/21 XR/XR lumbar spine AP/LAT/FLX/EXT: Lumbar pain Copies to: Gunnar Fernandez DO Lumbar spine 10/06/2021. CLINICAL DATA: Low back pain with radiation to the buttocks. FINDINGS: 4 standing views of the lumbar spine were obtained including lateral views in the neutral, flexion, and extension positions. There is grade 2 spondylolisthesis measuring 17 mm at L4-L5. There is grade 1 spondylolisthesis measuring 8 mm at the lumbosacral junction. There is mild anterior malalignment of L3 on L4. Overall vertebral alignment does not significantly change with flexion or extension. There are disc space narrowing and facet arthritis in the lower lumbar spine. XR/XR lumbar spine AP/LAT/FLX/EXT IMPRESSION: Multilevel spondylolisthesis. No instability with flexion or extension. Disc space narrowing and facet arthritis in the lower lumbar spine. Impression dictated by: Marin Haines Jr., M.D.10/06/2021 4:07 PM Dictation Location: [facility] Transcribed By: ROLF 10/06/21 1607 Dictated By: Marin Haines Jr, MD 10/06/21 1600 Signed By: 10/06/21 1607 [facility] XR lumbar spine AP/LAT/FLX/EXT [facility] [employer] Other XR lumbar spine AP/LAT/FLX/EXT [facility] [employer] Other XR lumbar spine AP/LAT/FLX/EXT [address] [place] [address] [employer] Other XR lumbar spine AP/LAT/FLX/[place] [address] [employer] Other XR lumbar spine AP/LAT/FLX/EXT XRay Report [employer] Other XR lumbar spine AP/LAT/FLX/EXT Signed [employer] Other XR lumbar spine AP/LAT/FLX/EXT Patient: Linda Nascimento MR#: [id number] [employer] Other XR lumbar spine AP/LAT/FLX/EXT 840 [employer] Other XR lumbar spine AP/LAT/FLX/EXT : 1950 Acct:[id number] [employer] Other XR lumbar spine AP/LAT/FLX/EXT Age/Sex: 71 / F ADM Date: 10/06/21 [employer] Other XR lumbar spine AP/LAT/FLX/EXT Loc: [facility] Room: Type: REG CLI [employer] Other XR lumbar spine AP/LAT/FLX/EXT Attending Dr: Gunnar Fernandez DO [employer] Other XR lumbar spine AP/LAT/FLX/EXT Ordering Provider: Gunnar Fernandez DO [employer] Other XR lumbar spine AP/LAT/FLX/EXT Date of Service: 10/06/21 [employer] Other XR lumbar spine AP/LAT/FLX/EXT XR/XR lumbar spine AP/LAT/FLX/EXT: Lumbar pain [employer] Other XR lumbar spine AP/LAT/FLX/EXT Copies to: Gunnar Fernandez, [employer] Other XR lumbar spine AP/LAT/FLX/EXT Lumbar spine 10/06/2021. [employer] Other XR lumbar spine AP/LAT/FLX/EXT CLINICAL DATA: Low back pain with radiation to the buttocks. [employer] Other XR lumbar spine AP/LAT/FLX/EXT FINDINGS: 4 standing views of the lumbar spine were obtained including lateral views in the [employer] Other XR lumbar spine AP/LAT/FLX/EXT neutral, flexion, and extension positions. [employer] Other XR lumbar spine AP/LAT/FLX/EXT There is grade 2 spondylolisthesis measuring 17 mm at L4-L5. There is grade 1 spondylolisthesis [employer] Other XR lumbar spine AP/LAT/FLX/EXT measuring 8 mm at the lumbosacral junction. There is mild anterior malalignment of L3 on L4. Overall [employer] Other XR lumbar spine AP/LAT/FLX/EXT vertebral alignment does not significantly change with flexion or extension. There are disc space [employer] Other XR lumbar spine AP/LAT/FLX/EXT narrowing and facet arthritis in the lower lumbar spine. [employer] Other XR lumbar spine AP/LAT/FLX/EXT XR/XR lumbar spine AP/LAT/FLX/EXT [employer] Other XR lumbar spine AP/LAT/FLX/EXT IMPRESSION: Multilevel spondylolisthesis. No instability with flexion or extension. Disc space [employer] Other XR lumbar spine AP/LAT/FLX/EXT Impression dictated by: Marin Haines Jr., M.D.10/06/2021 4:07 PM [employer] Other XR lumbar spine AP/LAT/FLX/EXT Dictation Location: [facility] [employer] Other XR lumbar spine AP/LAT/FLX/EXT Transcribed By: ROLF 10/06/21 1607 [employer] Other XR lumbar spine AP/LAT/FLX/EXT Dictated By: Marin Haines Jr, MD 10/06/21 1600 [employer] Other XR lumbar spine AP/LAT/FLX/EXT Signed By: [employer] Other XR lumbar spine AP/LAT/FLX/EXT 10/06/21 1601 [employer] Other BASIC METABOLIC PANELon 11-1 Calcium [Mass/Vol] 8.2 mg/dL Low 8.6-10.3 [facility] Comment on above: Order Comment: No: D o not add to previous draw Performed By: #### 0 0071 ####[facility] [place] [address], [place] Chloride [Moles/Vol] 106 mmol/L Normal 98-107 [facility] Comment on above: Order Comment: No: D o not add to previous draw Performed By: #### 0 0071 ####[facility] [place] [address], [place] CO2 [Moles/Vol] 23 mmol/L Normal 21-[address] [facility] Comment on above: Order Comment: No: D o not add to previous draw Performed By: #### 0 0071 ####[facility] [place] [address], [place] Creatinine [Mass/Vol] 0.98 mg/dL Normal 0.60-1.20 [facility] Comment on above: Order Comment: No: D o not add to previous draw Performed By: #### 0 0071 ####[facility] [place] [address], [facility] eGFR- non- 56 ml/min/1.73sq m Abnormal >60 [facility] Comment on above: Order Comment: No: D o not add to previous draw Result Comment: Calc ulation may not be valid for patients over 70 years Performed By: #### 0 0071 ####[facility] [place] [address], [facility] GFR/1.73 sq M.predicted among blacks MDRD (S/P/Bld) [Vol rate/Area] mL/min/{1.73_m2} Normal >60 [facility] Comment on above: Order Comment: No: D o not add to previous draw Result Comment: Calc ulation may not be valid for patients over 70 years Performed By: #### 0 0071 ####[facility] [place] [address], [facility] Glucose [Mass/Vol] 104 mg/dL High 70-100 [facility] Comment on above: Order Comment: No: D o not add to previous draw Performed By: #### 0 0071 ####[facility] [place] [address], [facility] Potassium [Moles/Vol] 4.5 mmol/L Normal 3.5-5.1 [facility] Comment on above: Order Comment: No: D o not add to previous draw Performed By: #### 0 0071 ####[facility] [facility] [place] [address], [facility] Sodium [Moles/Vol] 136 mmol/L Normal 136-145 [facility] Comment on above: Order Comment: No: D o not add to previous draw Performed By: #### 0 0071 ####[facility] [facility] [place] [address], [place] Urea nitrogen [Mass/Vol] 14 mg/dL Normal 7-25 [facility] Comment on above: Order Comment: No: D o not add to previous draw Performed By: #### 0 0071 ####[facility] [facility].[address] HEMATOCRITon 04-28-2021 Hematocrit (Bld) [Volume fraction] 27.6 % Low 36.0-45.0 [facility] Comment on above: Order Comment: No: D o not add to previous draw Performed By: #### 5 [id number], [address] #### [facility] [address] HEMOGLOBINon 04-28-2021 Hemoglobin (Bld) [Mass/Vol] 8.6 g/dL Low 12.0-15.0 [facility] Comment on above: Order Comment: No: D o not add to previous draw Performed By: #### 5 7307, 54856 #### [facility] [address] CHEST AND LATERALon 04-27-20 21 CHEST AND LATERAL [facility] Department of Radiology [address] [place] [address] Patient Name: LINDA NASCIMENTO : 1950 Sex: F Age: Race: White Pt. Location: [id number] Patient Status: I Ordered Date: 04/27/2021 7:00:00 AM Completed Date: 04/27/2021 09:33 AM Requesting Provider: ENOCH FRANKEL Attending Provider: BILLY LOZADA Report Copy To: Signs & Symptoms: Post Pacemaker/AICD Placement History: Comments: Check Pacemaker/AICD Lead Position, Chest X-ray PA \EANDE\ LAT in Dept ;DO NOT lift affected arm above shoulder. S/P pacemaker/ICD implant. Verify lead placement Exam: CHEST AND LATERAL CHEST AND LATERAL 04/27/2021 9:33 AM CLINICAL INDICATIONS: Post Pacemaker/AICD Placement TECHNOLOGIST COMMENTS: Check Pacemaker/AICD Lead Position QUESTION FOR THE RADIOLOGIST: Check Pacemaker/AICD Lead Position, Chest X-ray PA \EANDE\ LAT in Dept ;DO NOT lift affected arm above shoulder. S/P pacemaker/ICD implant. Verify lead placement PROTOCOL: AP(PA) and Lateral views were obtained. COMPARISON: April 19, 2012 FINDINGS: A bipolar pacemaker has been placed with the battery pack in the left subclavicular region and electrodes in the right atrium and right ventricle. The heart appears enlarged. The lungs appear clear with no pneumothorax identified. IMPRESSION: Satisfactory positioning of pacemaker leads. Electronically signed: Dwight Davila. Transcribed by: [email or web address], User Resident: Electronically Signed by: DWIGHT DAVILA @ 04/27/2021 10:35 AM Normal [facility] Comment on above: Order Comment: No: D o not add to previous draw BASIC METABOLIC PANELon 11- Calcium [Mass/Vol] 8.7 mg/dL Normal 8.6-10.3 [facility] Comment on above: Order Comment: No: D o not add to previous draw Performed By: #### 0 0071 ####[facility] [place] [address], [facility] Chloride [Moles/Vol] 103 mmol/L Normal 98-107 [facility] Comment on above: Order Comment: No: D o not add to previous draw Performed By: #### 0 0071 ####[facility] [facility] [place] [address], [place] CO2 [Moles/Vol] 24 mmol/L Normal 21-31 [facility] Comment on above: Order Comment: No: D o not add to previous draw Performed By: #### 0 0071 ####[facility] [place] [address], [facility] Creatinine [Mass/Vol] 1.05 mg/dL Normal 0.60-1.20 [facility] Comment on above: Order Comment: No: D o not add to previous draw Performed By: #### 0 0071 ####[facility] [place] [address], [facility] eGFR- non- 51 ml/min/1.73sq m Abnormal >60 [facility] Comment on above: Order Comment: No: D o not add to previous draw Result Comment: Calc ulation may not be valid for patients over 70 years Performed By: #### 0 0071 ####[facility] [place] [address], [facility] GFR/1.73 sq M.predicted among blacks MDRD (S/P/Bld) [Vol rate/Area] mL/min/{1.73_m2} Normal >60 [facility] Comment on above: Order Comment: No: D o not add to previous draw Result Comment: Calc ulation may not be valid for patients over 70 years Performed By: #### 0 0071 ####[facility] [place] [address], [facility] Glucose [Mass/Vol] 107 mg/dL High 70-100 [facility] Comment on above: Order Comment: No: D o not add to previous draw Performed By: #### 0 0071 ####[facility] [place] [address], [facility] Potassium [Moles/Vol] 4.6 mmol/L Normal 3.5-5.1 [facility] Comment on above: Order Comment: No: D o not add to previous draw Performed By: #### 0 0071 ####[facility] [place] [address], [facility] Sodium [Moles/Vol] 134 mmol/L Low 136-145 [facility] Comment on above: Order Comment: No: D o not add to previous draw Performed By: #### 0 0071 ####[facility] [place] [address], [facility] Urea nitrogen [Mass/Vol] 21 mg/dL Normal 7-25 [facility] Comment on above: Order Comment: No: D o not add to previous draw Performed By: #### 0 0071 ####[facility] [place] [address], [facility] CBC W/DIFFon 04-26-2021 ABS IMM GRANS 0.0 10*3/uL Normal 0.0-0.2 [facility] Comment on above: Order Comment: No: D o not add to previous draw Performed By: #### 5 0103 #### [facility] [address] [place] [address], [facility] ABS NEUTROPHILS 4.8 10*3/uL Normal 1.6-7.6 The [facility] Comment on above: Order Comment: No: D o not add to previous draw Performed By: #### 5 3 #### [facility] [address] [place] [address], [facility] Basophils (Bld) [#/Vol] 0.0 10*3/uL Normal 0.0-0.2 [facility] Comment on above: Order Comment: No: D o not add to previous draw Performed By: #### 5 0103 #### [facility] [address] [place] [address], [facility] Basophils/100 WBC (Bld) 0.6 % Normal 0.0-1.0 [facility] Comment on above: Order Comment: No: D o not add to previous draw Performed By: #### 5 0103 #### [facility] [address] [place] [address], [facility] Eosinophils (Bld) [#/Vol] 0.4 10*3/uL Normal 0.0-0.5 [facility] Comment on above: Order Comment: No: D o not add to previous draw Performed By: #### 5 3 #### [facility] [address] [place] [address], [facility] Eosinophils/100 WBC (Bld) 6.0 % Normal 0.0-6.0 [facility] Comment on above: Order Comment: No: D o not add to previous draw Performed By: #### 5 3 #### [facility] [address] [facility] [place] [address], [facility] Erythrocyte distribution width (RBC) [Ratio] 13.1 % Normal 11.5-15.0 [facility] Comment on above: Order Comment: No: D o not add to previous draw Performed By: #### 5 3 #### [facility] [address] [place] [address], [facility] Hematocrit (Bld) [Volume fraction] 27.8 % Low 36.0-45.0 [facility] Comment on above: Order Comment: No: D o not add to previous draw Performed By: #### 5 3 #### [facility] [address] [facility] [place] [address], [facility] Hemoglobin (Bld) [Mass/Vol] 9.0 g/dL Low 12.0-15.0 [facility] Comment on above: Order Comment: No: D o not add to previous draw Performed By: #### 5 0103 #### [facility] [address] [place] [address], [facility] IMMATURE GRANS 0.3 % Normal 0.0-1.0 [facility] Comment on above: Order Comment: No: D o not add to previous draw Performed By: #### 5 3 #### [facility] [address] [place] [address], [facility] Lymphocytes (Bld) [#/Vol] 0.7 10*3/uL Low 1.2-4.0 [facility] Comment on above: Order Comment: No: D o not add to previous draw Performed By: #### 5 0103 #### [facility] [address] [facility] [place] [address], [facility] Lymphocytes/100 WBC (Bld) 9.8 % Low 20.0-45.0 [facility] Comment on above: Order Comment: No: D o not add to previous draw Performed By: #### 5 0103 #### [facility] [address] [place] [address], [facility] MCH (RBC) [Entitic mass] 33.5 pg High 27.0-33.0 [facility] Comment on above: Order Comment: No: D o not add to previous draw Performed By: #### 5 0103 #### [facility] [address] [facility] [place] [address], [facility] MCHC (RBC) [Mass/Vol] 32.4 g/dL Normal 32.0-35.0 [facility] Comment on above: Order Comment: No: D o not add to previous draw Performed By: #### 5 0103 #### [facility] [address] [place] [address], [facility] MCV (RBC) [Entitic vol] 103.3 fL High 82.0-98.0 [facility] Comment on above: Order Comment: No: D o not add to previous draw Performed By: #### 5 0103 #### [facility] [address] [place] [address], [facility] Monocytes (Bld) [#/Vol] 0.7 10*3/uL Normal 0.1-1.0 [facility] Comment on above: Order Comment: No: D o not add to previous draw Performed By: #### 5 0103 #### [facility] [address] [place] [address], [place] MONOS 10.4 % Normal 5.0-12.0 [facility] Comment on above: Order Comment: No: D o not add to previous draw Performed By: #### 5 3 #### [facility] [address] [place] [address], [place] Neutrophils/100 WBC (Bld) 72.9 % High 40.0-72.0 [facility] Comment on above: Order Comment: No: D o not add to previous draw Performed By: #### 5 3 #### [facility] [address] [place] [address], [place] Nucleated RBC/100 WBC (Bld) [Ratio] 0 % Normal 0-0 [facility] Comment on above: Order Comment: No: D o not add to previous draw Performed By: #### 5 3 #### [facility] [address] [place] [address], [place] PLAT CNT 213 10*3/uL Normal 150-400 [facility] Comment on above: Order Comment: No: D o not add to previous draw Performed By: #### 5 0103 #### [facility] [address] [place] [address], [place] RBC (Bld) [#/Vol] 2.69 10*6/uL Low 3.80-5.00 [facility] Comment on above: Order Comment: No: D o not add to previous draw Performed By: #### 5 0103 #### [facility] [address] [place] [address], [place] WBC (Bld) [#/Vol] 6.62 10*3/uL Normal 4.00-10.60 [facility] Comment on above: Order Comment: No: D o not add to previous draw Performed By: #### 5 3 #### [facility] [address] Cardiovascular Lab Reporton 04-26-2021 Cardiovascular Lab Report [facility] Patient Name: Linda Nascimento [facility] Lisa MR #: [id number] Department of Physician: Enoch Frankel MD Medicine Service Date: 04/26/2021 Division of Birthdate: 1950 Cardiology Room #: [id number] Adult Cardiovascular Services [address] [place], [place] [address] Cardiovascular Laboratory Report PACEMAKER IMPLANT PROCEDURE NOTE DATE OF PROCEDURE: 04/26/21 PERFORMING PHYSICIAN: Dr. Enoch Frankel CONSENT: Patient LOCATION: EP Lab PROCEDURE PERFORMED: 1. Implantation of pacemaker (Biotronik) 2. Ultrasound guided venous access INDICATIONS: 1. 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 2. Sinus bradycardia. PROCEDURAL SEDATION: Versed and Fentanyl. Moderate sedation was administered by the sedation nurse under my supervision and noted in the CVL log. Intraprocedural face to face sedation time: 120min. Monitoring: Cardiac telemetry, Blood pressure, continuous pulse oxymetry. FLUOROSCOPY TIME: 30min 45sec / 63mGray PREPARATION: 70-year-old lady with a history of fall and syncope, which resulted in the black eye, was noted to have evidence of second-degree AV block. There is some record of sarcoidosis mentioned but the patient denies that history. Given the history of this and evidence of AV block that was noted on telemetry, the decision was made by the Cardiology team to proceed with a pacemaker. Patient was brought to the EP lab in the post absorptive state. A procedural pause was performed identifying the patient, the procedure to be performed and the site of implant. The left chest was prepped and draped in the usual sterile fashion. Preoperative antibiotics IV Ancef was administered. PROCEDURAL DETAILS: Patient was placed in trendelenberg position and ultrasound was used to evaluate the patency of left axillary vein and for venous access. Patient was very restless and trying to move while achieving access. Left axillary venous access was obtained using modified seldinger technique using a 5 Pakistani micro-puncture needle on two occasions and 0.35 wires were placed. Local infiltration of 1% Lidocaine was performed, and an incision was created in the left upper chest. Dissection was then performed using cautery down to the fascial plane above the muscle and a small pocket was created for the device. 6 Pakistani Safesheaths were placed over the wire. An active fixation [employer] pacing lead was then delivered through the 6Fsheath to the right ventricle. After confirmation of lead position on orthogonal views (GONZALES and JAMAICAN) to confirm septal position, the screw was activated, and the lead was placed in the right ventricular mid cavity towards the septum. After confirmation of good sensing parameters, injury pattern and pacing thresholds, 10V pacing was done and no diaphragmatic stimulation was noted. It was then secured in the pocket using three 1-0 Silk sutures. Then an active fixation [employer] lead was delivered through the 6Fsheath to the right atrial appendage. After confirmation of lead position on orthogonal views (GONZALES and JAMAICAN), the screw was activated. RA lead was moved to the appendage and here on multiple occasions, the patient was noted to have good injury, but the thresholds were noted to be 2V. I removed the lead to the atrial septum as well as the lateral border where the same findings were noted, but thresholds which were greater than 2.5V. Again, I selected a location in where I have noted the threshold was close to 1.5 V, and this was taken. After confirmation of good sensing parameters, injury pattern and pacing thresholds, the lead was then tested using Lambert's maneuver. 10V pacing was done and no diaphragmatic stimulation was noted. It was then secured in the pocket using three 1-0 Silk sutures. At this time, I noted there was dislodgement of the RV lead and this was again repositioned and silk stay sutures placed again. Pocket hemostasis was secured, and it was then copiously and vigorously irrigated with antibiotic solution. The leads were attached to the generator and then wrapped under the device and the device was tacked to underlying muscle and placed in the pocket. The pocket was closed in layers: muscle and subcutaneous layer using 2-0 Vicryl; skin using 3-0 absorbable monofilament suture. The temporary pacing wire was removed under fluoroscopy and thresholds were verified. Glue was applied and Tegaderm dressing was placed on top. Lead parameters were then rechecked through the device as noted below. The patient was returned to the short stay room for post procedural observation. No immediate procedural complications were noted. Device info: Ecomm[employer]rice Ordaz Model# 8DRT Serial# [id number] RA lead: Model# Lucian Diaz S53 Serial# [id number] Sensin.9mV Threshold: 1.1V@0.5ms Impedance: 429 Ohms RV lead: Model (more content not included)... Normal [facility] BASIC METABOLIC PANELon 11-1 Calcium [Mass/Vol] 8.6 mg/dL Normal 8.6-10.3 [facility] Comment on above: Order Comment: No: D o not add to previous draw Performed By: #### 0 0071 ####[facility] [place] [address], [facility] Chloride [Moles/Vol] 101 mmol/L Normal 98-107 [facility] Comment on above: Order Comment: No: D o not add to previous draw Performed By: #### 0 0071 ####[facility] [place] [address], [facility] CO2 [Moles/Vol] 24 mmol/L Normal 21-[address] [facility] Comment on above: Order Comment: No: D o not add to previous draw Performed By: #### 0 0071 ####[facility] [place] [address], [facility] Creatinine [Mass/Vol] 1.36 mg/dL High 0.60-1.20 [facility] Comment on above: Order Comment: No: D o not add to previous draw Performed By: #### 0 0071 ####[facility] [place] [address], [facility] eGFR- 46 ml/min/1.73sq m Abnormal >60 [facility] Comment on above: Order Comment: No: D o not add to previous draw Result Comment: Calc ulation may not be valid for patients over 70 years Performed By: #### 0 0071 ####[facility] [place] [address], [facility] eGFR- non- 39 ml/min/1.73sq m Abnormal >60 [facility] Comment on above: Order Comment: No: D o not add to previous draw Result Comment: Calc ulation may not be valid for patients over 70 years Performed By: #### 0 0071 ####[facility] [place] [address], [place] Glucose [Mass/Vol] 98 mg/dL Normal 70-100 [facility] Comment on above: Order Comment: No: D o not add to previous draw Performed By: #### 0 0071 ####[facility] [place] [address], [facility] Potassium [Moles/Vol] 4.4 mmol/L Normal 3.5-5.1 [facility] Comment on above: Order Comment: No: D o not add to previous draw Performed By: #### 0 0071 ####[facility] [place] [address], [place] Sodium [Moles/Vol] 132 mmol/L Low 136-145 [facility] Comment on above: Order Comment: No: D o not add to previous draw Performed By: #### 0 0071 ####[facility] [place] [address], [facility] Urea nitrogen [Mass/Vol] 22 mg/dL Normal 7-25 [facility] Comment on above: Order Comment: No: D o not add to previous draw Performed By: #### 0 0071 ####[facility] [place] [address], [facility] HEMATOCRITon 04-25-2021 Hematocrit (Bld) [Volume fraction] 28.3 % Low 36.0-45.0 [facility] Comment on above: Order Comment: No: D o not add to previous draw Performed By: #### 5 7307, 91581 #### [facility] [address] [place] [address], [facility] HEMOGLOBINon 04-25-2021 Hemoglobin (Bld) [Mass/Vol] 9.0 g/dL Low 12.0-15.0 [facility] Comment on above: Order Comment: No: D o not add to previous draw Performed By: #### 9 2097, 81943 #### [facility] [address] [place] [address], [facility] BASIC METABOLIC PANELon 04-12 Calcium [Mass/Vol] 8.8 mg/dL Normal 8.6-10.3 [facility] Comment on above: Order Comment: No: D o not add to previous draw Performed By: #### 1 0, 77995 ####[facility] [place] [address], [facility] Chloride [Moles/Vol] 101 mmol/L Normal 98-107 [facility] Comment on above: Order Comment: No: D o not add to previous draw Performed By: #### 1 69, 37985 ####[facility] [place] [address], [facility] CO2 [Moles/Vol] 26 mmol/L Normal 21-[address] [facility] Comment on above: Order Comment: No: D o not add to previous draw Performed By: #### 1 69, 38584 ####[facility] [place] [address], [facility] Creatinine [Mass/Vol] 1.17 mg/dL Normal 0.60-1.20 [facility] Comment on above: Order Comment: No: D o not add to previous draw Performed By: #### 1 69, 07399 ####[facility] [place] [address], [facility] eGFR- 55 ml/min/1.73sq m Abnormal >60 [facility] Comment on above: Order Comment: No: D o not add to previous draw Result Comment: Calc ulation may not be valid for patients over 70 years Performed By: #### 1 69, 34088 ####[facility] [place] [address], [facility] eGFR- non- 45 ml/min/1.73sq m Abnormal >60 [facility] Comment on above: Order Comment: No: D o not add to previous draw Result Comment: Calc ulation may not be valid for patients over 70 years Performed By: #### 1 69, 39409 ####[facility] [id number], [facility] Glucose [Mass/Vol] 102 mg/dL High 70-100 [facility] Comment on above: Order Comment: No: D o not add to previous draw Performed By: #### 1 69, 53649 ####[place] [address] [facility] [place] [address], [facility] Potassium [Moles/Vol] 4.5 mmol/L Normal 3.5-5.1 [facility] Comment on above: Order Comment: No: D o not add to previous draw Performed By: #### 1 69, 61971 ####[facility] [id number], [facility] Sodium [Moles/Vol] 133 mmol/L Low 136-145 [facility] Comment on above: Order Comment: No: D o not add to previous draw Performed By: #### 1 69, 70227 ####[facility] [id number], [facility] Urea nitrogen [Mass/Vol] 20 mg/dL Normal 7-25 [facility] Comment on above: Order Comment: No: D o not add to previous draw Performed By: #### 1 69, 69193 ####[facility] [id number], [facility] HEMOGLOBINon 04-24-2021 Hemoglobin (Bld) [Mass/Vol] 10.0 g/dL Low 12.0-15.0 [facility] Comment on above: Order Comment: Yes: Add to Previous draw if able NEEDS DRAWN. NO LAV TUBE FROM AM LABS Performed By: #### 9 2088 #### [facility] [address] [place] [address], [facility] MAGNESIUM BLOODon 04-24-2021 Magnesium [Mass/Vol] 2.1 mg/dL Normal 1.9-2.7 [facility] Comment on above: Order Comment: No: D o not add to previous draw Performed By: #### 1 0, 36387 ####[facility] [place] [address], [facility] BASIC METABOLIC PANELon 04-12 Calcium [Mass/Vol] 8.4 mg/dL Low 8.6-10.3 [facility] Comment on above: Order Comment: Unkno wn Performed By: #### 1 0070, 93871, 97975 ####[facility] [place] [address], [facility] Chloride [Moles/Vol] 100 mmol/L Normal 98-107 [facility] Comment on above: Order Comment: Unkno wn Performed By: #### 1 0, 21847, 00564 ####[facility] [place] [address], [facility] CO2 [Moles/Vol] 25 mmol/L Normal 21-[address] [facility] Comment on above: Order Comment: Unkno wn Performed By: #### 1 0070, 44627, 10940 ####[facility] [place] [address], [facility] Creatinine [Mass/Vol] 1.30 mg/dL High 0.60-1.20 [facility] Comment on above: Order Comment: Unkno wn Performed By: #### 1 0070, 83701, 86881 ####[facility] [place] [address], [facility] eGFR- 49 ml/min/1.73sq m Abnormal >60 [facility] Comment on above: Order Comment: Unkno wn Result Comment: Calc ulation may not be valid for patients over 70 years Performed By: #### 1 0070, 48560, 62538 ####[facility] [facility] [place] [address], [facility] eGFR- non- 40 ml/min/1.73sq m Abnormal >60 [facility] Comment on above: Order Comment: Unkno wn Result Comment: Calc ulation may not be valid for patients over 70 years Performed By: #### 1 0070, 17611, 93151 ####[facility] [place] [address], [facility] Glucose [Mass/Vol] 93 mg/dL Normal 70-100 [facility] Comment on above: Order Comment: Unkno wn Performed By: #### 1 0, 41836, 97220 ####[facility] [place] [address], [facility] Potassium [Moles/Vol] 4.1 mmol/L Normal 3.5-5.1 The [facility] Comment on above: Order Comment: Unkno wn Performed By: #### 1 0, 50249, 85577 ####[facility] [place] [address], [place] Sodium [Moles/Vol] 133 mmol/L Low 136-145 [facility] Comment on above: Order Comment: Unkno wn Performed By: #### 1 0070, 18880, 93330 ####[facility] [place] [address], [place] Urea nitrogen [Mass/Vol] 20 mg/dL Normal 7-25 The [facility] Comment on above: Order Comment: Unkno wn Performed By: #### 1 0, 36170, 15831 ####[facility] [facility] [place] [address], [facility] CBC W/DIFFon 04-23-2021 ABS IMM GRANS 0.1 10*3/uL Normal 0.0-0.2 The [facility] Comment on above: Order Comment: Unkno wn Performed By: #### 5 0103 #### [facility] [address] [place] [address], [facility] ABS NEUTROPHILS 7.8 10*3/uL High 1.6-7.6 The [facility] Comment on above: Order Comment: Unkno wn Performed By: #### 5 0103 #### [facility] [address] [facility] [place] [address], [facility] Basophils (Bld) [#/Vol] 0.1 10*3/uL Normal 0.0-0.2 The [facility] Comment on above: Order Comment: Unkno wn Performed By: #### 5 0103 #### [facility] [address] [facility] [place] [place] [address], [facility] Basophils/100 WBC (Bld) 0.5 % Normal 0.0-1.0 The [facility] Comment on above: Order Comment: Unkno wn Performed By: #### 5 3 #### [facility] [address] [facility] [place] [place] [address], [facility] Eosinophils (Bld) [#/Vol] 0.4 10*3/uL Normal 0.0-0.5 The [facility] Comment on above: Order Comment: Unkno wn Performed By: #### 5 0103 #### [facility] [address] [facility] [place] [place] [address], [facility] Eosinophils/100 WBC (Bld) 3.5 % Normal 0.0-6.0 The [facility] Comment on above: Order Comment: Unkno wn Performed By: #### 5 3 #### [facility] [address] [facility]. [address] Erythrocyte distribution width (RBC) [Ratio] 13.2 % Normal 11.5-15.0 The [facility] Comment on above: Order Comment: Unkno wn Performed By: #### 5 0103 #### [facility] [address] [place] [id number], [facility] Hematocrit (Bld) [Volume fraction] 29.2 % Low 36.0-45.0 The [facility] Comment on above: Order Comment: Unkno wn Performed By: #### 5 0103 #### [facility] [address] [place] [address], [facility] Hemoglobin (Bld) [Mass/Vol] 9.3 g/dL Low 12.0-15.0 The [facility] Comment on above: Order Comment: Unkno wn Performed By: #### 5 0103 #### [facility] [address] [facility] [place] [address], [facility] IMMATURE GRANS 0.6 % Normal 0.0-1.0 [facility] Comment on above: Order Comment: Unkno wn Performed By: #### 5 0103 #### [facility] [address] [facility] [place] [address], [facility] Lymphocytes (Bld) [#/Vol] 0.7 10*3/uL Low 1.2-4.0 [facility] Comment on above: Order Comment: Unkno wn Performed By: #### 5 0103 #### [facility] [address] [place] [address], [facility] Lymphocytes/100 WBC (Bld) 6.8 % Low 20.0-45.0 [facility] Comment on above: Order Comment: Unkno wn Performed By: #### 5 3 #### [facility] [address] [place] [address], [facility] MCH (RBC) [Entitic mass] 33.5 pg High 27.0-33.0 [facility] Comment on above: Order Comment: Unkno wn Performed By: #### 5 0103 #### [facility] [address] [place] [address], [facility] MCHC (RBC) [Mass/Vol] 31.8 g/dL Low 32.0-35.0 [facility] Comment on above: Order Comment: Unkno wn Performed By: #### 5 0103 #### [facility] [address] [place] [address], [facility] MCV (RBC) [Entitic vol] 105.0 fL High 82.0-98.0 [facility] Comment on above: Order Comment: Unkno wn Performed By: #### 5 0103 #### [facility] [address] [place] [address], [facility] Monocytes (Bld) [#/Vol] 1.0 10*3/uL Normal 0.1-1.0 [facility] Comment on above: Order Comment: Unkno wn Performed By: #### 5 0103 #### [facility] [address] [facility] [place] [address], [facility] MONOS 10.0 % Normal 5.0-12.0 [facility] Comment on above: Order Comment: Unkno wn Performed By: #### 5 0103 #### [facility] [address] [facility] [place] [address], [facility] Neutrophils/100 WBC (Bld) 78.6 % High 40.0-72.0 [facility] Comment on above: Order Comment: Unkno wn Performed By: #### 5 3 #### [facility] [address] [facility] [place] [address], [facility] Nucleated RBC/100 WBC (Bld) [Ratio] 0 % Normal 0-0 [facility] Comment on above: Order Comment: Unkno wn Performed By: #### 5 3 #### [facility] [address] [place] [address], [facility] PLAT CNT 227 10*3/uL Normal 150-400 [facility] Comment on above: Order Comment: Unkno wn Performed By: #### 5 0103 #### [facility] [address] RBC (Bld) [#/Vol] 2.78 10*6/uL Low 3.80-5.00 [facility] Comment on above: Order Comment: Unkno wn Performed By: #### 5 0103 #### [facility] [address] [place] [address], [facility] WBC (Bld) [#/Vol] 9.87 10*3/uL Normal 4.00-10.60 [facility] Comment on above: Order Comment: Unkno wn Performed By: #### 5 0103 #### [facility] [address] [facility] MAGNESIUM BLOODon 04-23-2021 Magnesium [Mass/Vol] 2.1 mg/dL Normal 1.9-2.7 [facility] Comment on above: Order Comment: Unkno wn Performed By: #### 1 0070, 36569, 91321 ####[facility] PHOSPHORUS BLOODon Phosphate [Mass/Vol] 2.8 mg/dL Normal 2.5-5.0 [facility] Comment on above: Order Comment: Unkno wn Performed By: #### 1 0, 96731, 69332 ####[facility] APTTon 04-22-2021 aPTT Coag (Bld) [Time] 27.6 s Normal 25.0-35.0 [facility] Comment on above: Order Comment: No: D o not add to previous draw Result Comment: ALL RESULTS MUST BE INTERPRETED WITH RESPECT TO BLOOD DRAWING ARTIFACT OR DILUTION ERROR OF ANTICOAGULANT AT THE TIME OF SAMPLING. THE APTT SHOULD NOT BE USED TO MONITOR UNFRACTIONATED HEPARIN THERAPY, THIS LABORATORY NO LONGER HAS AN ESTABLISHED THERAPEUTIC RANGE BASED ON THE APTT. IT IS RECOMMENDED THAT THE [facility] - HEPARIN ASSAY (ANTI-XA ACTIVITY) BE USED FOR THIS PURPOSE. Performed By: #### 5 7307, 86555 #### [facility] [address] [place] [address], [facility] BASIC METABOLIC PANELon 11-1 Calcium [Mass/Vol] 8.8 mg/dL Normal 8.6-10.3 [facility] Comment on above: Order Comment: No: D o not add to previous draw Performed By: #### 4 1000, 86840, 06292, 31700 ####[facility] [place] [address], [facility] Chloride [Moles/Vol] 99 mmol/L Normal 98-107 [facility] Comment on above: Order Comment: No: D o not add to previous draw Performed By: #### 4 1000, 79315, 88679, 24007 ####[facility] [place] [address], [facility] CO2 [Moles/Vol] 27 mmol/L Normal 21-[address] [facility] Comment on above: Order Comment: No: D o not add to previous draw Performed By: #### 4 1000, 31307, 54980, 96405 ####[facility] [place] [address], [facility] Creatinine [Mass/Vol] 1.39 mg/dL High 0.60-1.20 [facility] Comment on above: Order Comment: No: D o not add to previous draw Performed By: #### 4 1000, 61478, 72832, 10811 ####[facility] [place] [address], [facility] eGFR- 45 ml/min/1.73sq m Abnormal >60 [facility] Comment on above: Order Comment: No: D o not add to previous draw Result Comment: Calc ulation may not be valid for patients over 70 years Performed By: #### 4 1000, 66183, 51697, 05099 ####[facility] [place] [place] [address], [facility] eGFR- non- 37 ml/min/1.73sq m Abnormal >60 [facility] Comment on above: Order Comment: No: D o not add to previous draw Result Comment: Calc ulation may not be valid for patients over 70 years Performed By: #### 4 1000, 54125, 94326, 75769 ####[facility] [place] [address], [facility] Glucose [Mass/Vol] 91 mg/dL Normal 70-100 [facility] Comment on above: Order Comment: No: D o not add to previous draw Performed By: #### 4 1000, 42790, 35427, 15604 ####[facility] [facility] [place] [place] [address], [facility] Potassium [Moles/Vol] 4.4 mmol/L Normal 3.5-5.1 [facility] Comment on above: Order Comment: No: D o not add to previous draw Performed By: #### 4 1000, 85410, 37530, 07524 ####[facility] [facility] [place] [address], [facility] Sodium [Moles/Vol] 133 mmol/L Low 136-145 [facility] Comment on above: Order Comment: No: D o not add to previous draw Performed By: #### 4 1000, 12508, 11749, 82516 ####[facility] [place] [address], [place] Urea nitrogen [Mass/Vol] 24 mg/dL Normal 7-25 [facility] Comment on above: Order Comment: No: D o not add to previous draw Performed By: #### 4 1000, 90774, 80294, 69484 ####[facility] CBC W/DIFFon 04-22-2021 ABS IMM GRANS 0.0 10*3/uL Normal 0.0-0.2 [facility] Comment on above: Performed By: #### 5 0103 #### [facility] [address] [place] [place] [address], [facility] ABS NEUTROPHILS 5.8 10*3/uL Normal 1.6-7.6 [facility] Comment on above: Performed By: #### 5 0103 #### [facility] [address] [place] [address], [facility] Basophils (Bld) [#/Vol] 0.1 10*3/uL Normal 0.0-0.2 [facility] Comment on above: Performed By: #### 5 0103 #### [facility] [address] [place] [address], [facility] Basophils/100 WBC (Bld) 0.6 % Normal 0.0-1.0 [facility] Comment on above: Performed By: #### 5 0103 #### [facility] [address] [place] [address], [facility] Eosinophils (Bld) [#/Vol] 0.2 10*3/uL Normal 0.0-0.5 [facility] Comment on above: Performed By: #### 5 0103 #### [facility] [address] [facility] [place] [address], [facility] Eosinophils/100 WBC (Bld) 2.7 % Normal 0.0-6.0 [facility] Comment on above: Performed By: #### 5 0103 #### [facility] [address] [place] [address], [facility] Erythrocyte distribution width (RBC) [Ratio] 13.0 % Normal 11.5-15.0 [facility] Comment on above: Performed By: #### 5 0103 #### [facility] [address] [facility] [place] [address], [facility] Hematocrit (Bld) [Volume fraction] 29.2 % Low 36.0-45.0 [facility] Comment on above: Performed By: #### 3 #### [facility] [address] [facility] [place] [address], [facility] Hemoglobin (Bld) [Mass/Vol] 9.6 g/dL Low 12.0-15.0 [facility] Comment on above: Performed By: #### 3 #### [facility] [address] [place] [address], [facility] IMMATURE GRANS 0.5 % Normal 0.0-1.0 The [facility] vladimir [facility] Comment on above: Performed By: #### 102 #### [facility] [address] Lymphocytes (Bld) [#/Vol] 1.1 10*3/uL Low 1.2-4.0 [facility] Comment on above: Performed By: #### 102 #### [facility] [address] [place] [address], [facility] Lymphocytes/100 WBC (Bld) 13.4 % Low 20.0-45.0 [facility] Comment on above: Performed By: #### 5 3 #### [facility] [address] [facility]. [address] MCH (RBC) [Entitic mass] 33.1 pg High 27.0-33.0 [facility] Comment on above: Performed By: #### 5 3 #### [facility] [address] [place] [address], [facility] MCHC (RBC) [Mass/Vol] 32.9 g/dL Normal 32.0-35.0 [facility] Comment on above: Performed By: #### 3 #### [facility] [address] [place] [address], [facility] MCV (RBC) [Entitic vol] 100.7 fL High 82.0-98.0 [facility] Comment on above: Performed By: #### 5 3 #### [facility] [address] [place] [place] [address], [facility] Monocytes (Bld) [#/Vol] 0.7 10*3/uL Normal 0.1-1.0 [facility] Comment on above: Performed By: #### 102 #### [facility] [address] [place] [address], [facility] MONOS 9.1 % Normal 5.0-12.0 [facility] Comment on above: Performed By: #### 102 #### [facility] [address] [facility] [place] [address], [facility] Neutrophils/100 WBC (Bld) 73.7 % High 40.0-72.0 [facility] Comment on above: Performed By: #### 102 #### [facility] [address] [place] [address], [facility] Nucleated RBC/100 WBC (Bld) [Ratio] 0 % Normal 0-0 [facility] Comment on above: Performed By: #### 5 3 #### [facility] [address] [facility] [place] [address], [facility] PLAT CNT 234 10*3/uL Normal 150-400 [facility] Comment on above: Performed By: #### 3 #### [facility] [address] [facility] [place] [place] [address], [facility] RBC (Bld) [#/Vol] 2.90 10*6/uL Low 3.80-5.00 [facility] Comment on above: Performed By: #### 3 #### [facility] [address] WBC (Bld) [#/Vol] 7.81 10*3/uL Normal 4.00-10.60 [facility] Comment on above: Performed By: #### 5 0103 #### [facility] [address] [facility] [place] [address], [facility] FERRITINon 04-22-2021 Ferritin [Mass/Vol] 74 ng/mL Normal 11-307 [facility] Comment on above: Order Comment: No: D o not add to previous draw Performed By: #### 8 4044, 83422, 07362, 68951, 44578, 06437 ####[facility] FOLATE SERUMon 04-22-2021 SERUM FOLATE 29.00 ng/mL Normal 6.60-1000.00 [facility] Comment on above: Order Comment: No: D o not add to previous draw Result Comment: Norm al range reflects World Health Organization International Standard Performed By: #### 8 4044, 64681, 26909, 66884, 87907, 91850 ####[facility] HAPTOGLOBINon 04-22-2021 HAPTOGLOBIN 302 mg/dL High 26-164 [facility] Comment on above: Order Comment: No: D o not add to previous draw Performed By: #### 3 0103 #### [facility] [address] [place] [address], [facility] KNEE LEFT 1 OR 2 VWSon 04-22 KNEE LEFT 1 OR 2 VWS [facility] Department of Radiology [address] [place] [id number] Patient Name: LINDA NASCIMENTO : 1950 Sex: F Age: Race: White Pt. Location: [id number] Patient Status: I Ordered Date: 04/22/2021 2:30:00 AM Completed Date: 04/22/2021 02:52 AM Requesting Provider: GUNNAR CHRISTIANSON Attending Provider: ROBERTA VELA Report Copy To: Signs & Symptoms: Pain ( specify Location) History: See Comments Comments: evaluate for FX Exam: KNEE LEFT 1 OR 2 S KNEE LEFT 1 OR 2 VWS 04/22/2021 2:52 AM CLINICAL INDICATIONS: Pain ( specify Location) TECHNOLOGIST COMMENTS: fall, pain anterior right knee, pain and abrasion anterior left knee QUESTION FOR THE RADIOLOGIST: evaluate for FX PROTOCOL: AP(PA) and Lateral views were obtained. COMPARISON: Right knee x-ray taken at the same time FINDINGS: Infrapatellar soft tissue contusion. Joint space loss and severe osteophytes in all 3 compartments. Small amount of joint fluid. No acute fractures. IMPRESSION: * Infrapatellar soft tissue contusion * Severe tricompartmental osteoarthritis without acute fracture Approved by:Nithin Burnette04/22/2021 2:56 AM. I, Boris Jara,have reviewed the image(s) and agree with the findings in this report. Electronically signed: Boris Jara. Transcribed by: [email or web address], User Resident: NITHIN GARAY Electronically Signed by: BORIS JARA @ 04/22/2021 03:09 AM I personally read this/these film(s) with this resident Normal [facility] Comment on above: Order Comment: No: D o not add to previous draw KNEE RIGHT 1 OR 2 VWSon 04-12 KNEE RIGHT 1 OR 2 S [facility] Department of Radiology [address] [place] [address] Patient Name: LINDA NASCIMENTO : 1950 Sex: F Age: Race: White Pt. Location: [id number] Patient Status: I Ordered Date: 04/22/2021 2:30:00 AM Completed Date: 04/22/2021 02:52 AM Requesting Provider: GUNNAR CHRISTIANSON Attending Provider: ROBERTA VELA Report Copy To: Signs & Symptoms: Pain ( specify Location) History: See Comments Comments: evaluate for FX Exam: KNEE RIGHT 1 OR 2 [facility] KNEE RIGHT 1 OR 2 [facility] 04/22/2021 2:52 AM CLINICAL INDICATIONS: Pain ( specify Location) TECHNOLOGIST COMMENTS: fall, pain anterior right knee, pain and abrasion anterior left knee QUESTION FOR THE RADIOLOGIST: evaluate for FX PROTOCOL: AP(PA) and Lateral views were obtained. COMPARISON: None FINDINGS: Small amount of joint effusion. Severe osteophytes and joint space loss in all 3 compartments. No acute fractures. IMPRESSION: Severe tricompartmental osteoarthritis without acute fracture Approved by:Nithin Burnette04/22/2021 2:57 AM. I, Boris Jara,have reviewed the image(s) and agree with the findings in this report. Electronically signed: Boris Jara. Transcribed by: [email or web address], User Resident: NITHIN GARAY Electronically Signed by: BORIS JARA @ 04/22/2021 03:09 AM I personally read this/these film(s) with this resident Normal [facility] Comment on above: Order Comment: No: D o not add to previous draw LDH BLOODon 04-22-2021 LDH 232 Units/L Normal 140-271 [facility] Comment on above: Order Comment: No: D o not add to previous draw Performed By: #### 8 4044, 61579, 37981, 10201, 50800, 62645 ####[facility] [place] [address], [place] LIVER BATTERYon 04-22-2021 Albumin [Mass/Vol] 3.9 g/dL Normal 3.5-5.7 [facility] Comment on above: Order Comment: No: D o not add to previous draw Performed By: #### 5 7307, 71053 #### [facility] [address] [place] [address], [place] ALKALINE PHOSPH 74 IU/L Normal 34-104 [facility] Comment on above: Order Comment: No: D o not add to previous draw Performed By: #### 5 7307, 42921 #### [facility] [address] [place] [address], [place] ALT [Catalytic activity/Vol] 9 U/L Normal 7-52 [facility] Comment on above: Order Comment: No: D o not add to previous draw Performed By: #### 5 7307, 42685 #### [facility] [address] [place] [address], [place] AST [Catalytic activity/Vol] 19 U/L Normal 13-39 [facility] Comment on above: Order Comment: No: D o not add to previous draw Performed By: #### 5 7307, 04479 #### [facility] [address] [place] [address], [place] Bilirubin [Mass/Vol] 0.5 mg/dL Normal 0.3-1.0 [facility] Comment on above: Order Comment: No: D o not add to previous draw Performed By: #### 5 7307, 44665 #### [facility] [address] [place] [address], [facility] Bilirubin.direct [Mass/Vol] 0.1 mg/dL Normal 0.0-0.2 [facility] Comment on above: Order Comment: No: D o not add to previous draw Performed By: #### 5 7307, 23432 #### [facility] [address] [place] [address], [facility] Protein [Mass/Vol] 6.5 g/dL Normal 6.0-8.3 [facility] Comment on above: Order Comment: No: D o not add to previous draw Performed By: #### 5 7307, 33590 #### [facility] [address] [place] [address], [facility] MAGNESIUM BLOODon 04-22-2021 Magnesium [Mass/Vol] 2.0 mg/dL Normal 1.9-2.7 [facility] Comment on above: Order Comment: No: D o not add to previous draw Performed By: #### 4 1000, 10394, 26914, 80821 ####[facility] [place] [address], [facility] PERIPHERAL SMEARon 1 Nucleated RBC/100 WBC (Bld) [Ratio] 0 % Normal 0-0 [facility] Comment on above: Order Comment: No: D o not add to previous draw Performed By: #### 5 7307, 06305 #### [facility] [address] [place] [address], [facility] OTHER PS1 Macrocytic anemia with no significant RBC morphology. Normal [facility] Comment on above: Order Comment: No: D o not add to previous draw Performed By: #### 5 7307, 95937 #### [facility] [address] OTHER PS2 Check serum B12 and folate. Normal [facility] Comment on above: Order Comment: No: D o not add to previous draw Performed By: #### 5 7307, 19340 #### [facility] [address] OTHER PS3 Otherwise unremarkable leukocytes and platelets. Normal [facility] Comment on above: Order Comment: No: D o not add to previous draw Performed By: #### 5 7307, 09509 #### [facility] [address] OTHER PS4 Normal [facility] Comment on above: Order Comment: No: D o not add to previous draw Result Comment: Chec ked by Mayra Encinas M.D. Performed By: #### 5 7307, 00825 #### [facility] [address] PHOSPHORUS BLOODon 1 Phosphate [Mass/Vol] 3.4 mg/dL Normal 2.5-5.0 [facility] Comment on above: Order Comment: No: D o not add to previous draw Performed By: #### 5 7307, 24369 #### [facility] [address] PROTHROMBIN TIMEon 1 INR Coag (PPP) [Relative time] 1.01 {INR} Normal 0.91-1.16 [facility] Comment on above: Order Comment: No: D o not add to previous draw Result Comment: ACCC P RECOMMENDED INR FOR WARFARIN THERAPY ------ ------- CONDITION INR PROPHYLAXIS OF VENOUS THROMBOSIS 2-3 (HIGH-RISK SURGERY) TREATMENT OF VENOUS THROMBOSIS 2-3 TREATMENT OF PULMONARY EMBOLISM 2-3 PREVENTION OF SYSTEMIC EMBOLISM: 2-3 ACUTE MYOCARDIAL INFARCTION TISSUE HEART VALVES VALVULAR HEART DISEASE ATRIAL FIBRILLATION RECURRENT SYSTEMIC EMBOLISM MECHANICAL HEART VALVE 2.5-3.5 FROM: ORAL ANTICOAGULANTS. MECHANISM OF ACTION, CLINICAL EFFECTIVENESS, AND OPTIMAL THERAPEUTIC RANGE. CHEST 1995;108:231S-246S. Performed By: #### 5 [id number], [id number] #### [facility] [address] PT Coag (PPP) [Time] 13.3 s Normal 12.3-14.8 [facility] Comment on above: Order Comment: No: D o not add to previous draw Result Comment: ALL RESULTS MUST BE INTERPRETED WITH RESPECT TO BLOOD DRAWING ARTIFACT OR DILUTION ERROR OF ANTICOAGULANT AT THE TIME OF SAMPLING. Performed By: #### 5 [id number], [id number] #### [facility] 3000 [facility]. [address] RETICULOCYTE PANELon 11-11-2 021 ABSOLUTE RETICULOCYTE 0.0711 10*6/uL Normal 0.0250-0.1000 [facility] Comment on above: Order Comment: No: D o not add to previous draw Performed By: #### 5 [id number], [id number] #### [facility] [address] IMMATURE RETICULOCYTE FRACTION 12.8 % Normal 2.0-16.0 [facility] Comment on above: Order Comment: No: D o not add to previous draw Performed By: #### 5 [id number], [id number] #### [facility] [address] [place] [address], [facility] RETIC COUNT 2.37 % High 0.50-1.80 [facility] Comment on above: Order Comment: No: D o not add to previous draw Performed By: #### 5 [id number], 72596 #### [facility] [address] RETICULOCYTE HEMOGLOBIN 37.5 pg High 28.0-36.0 [facility] Comment on above: Order Comment: No: D o not add to previous draw Performed By: #### 5 [id number], 14551 #### [facility] [address] [place] [address], [facility] TIBC- INCLUDES IRONon 2020 FE SATURATION 16 % Low 20-50 [facility] Comment on above: Order Comment: No: D o not add to previous draw Performed By: #### 8 [id number], 81481, 39003, 79848, 64469, 14821 ####[facility] Iron [Mass/Vol] 54 ug/dL Normal 50-[address] [facility] Comment on above: Order Comment: No: D o not add to previous draw Performed By: #### 8 4044, 05476, 55721, 97829, 98482, 30891 ####[facility] TIBC 332 mcg/dL Normal 250-450 [facility] Comment on above: Order Comment: No: D o not add to previous draw Performed By: #### 8 4044, 74904, 13229, 73779, 77765, 19632 ####[facility] UIBC 278 mcg/dL Normal 155-355 [facility] Comment on above: Order Comment: No: D o not add to previous draw Performed By: #### 8 4044, 63883, 56185, 22850, 14346, 08976 ####[facility] [place] [address], [facility] TSH3 WITH REFLEX FT4on 04-22 TSH 3RD GENERATION 1.72 uIU/mL Normal 0.34-5.60 [facility] Comment on above: Performed By: #### 8 [id number], 05395, 09232, 28015, 38537, 44788 ####[facility] VITAMIN B12on 04-22-2021 Cobalamin (Vitamin B12) [Mass/Vol] 771 pg/mL Normal 180-914 [facility] Comment on above: Order Comment: No: D o not add to previous drawPt using restroom Result Comment: REFE RENCE RANGES: 180-914 pg/mL Normal 145-179 pg/mL Indeterminate <145 pg/mL Deficient Performed By: #### 8 4044, 61552, 48788, 30217, 70024, 23825 ####[facility] Vital Signs Date Time Vital Sign Value Performing Clinician Lourdesi lity 10-06-2021 14:00-0400 Body height 165.1 cm Gunnar Fernandez Other [employer] Other 10-06-2021 14:00-0400 Body mass index (BMI) [Ratio] 40.77 kg/m2 Gunnar Fernandez Other [employer] Other 10-06-2021 14:00-0400 Body weight 111.13 kg Gunnar Fernandez Other [employer] Other Encounters Encounter Date Encounter Type Care Provider Facility Start: 10-31-2023 End: 10-31-2023 ambulatory ENOCH FRANKEL [facility] Start: 04-12-2023 End: 04-12-2023 ambulatory MARKEL AMBROCIO [facility] Start: 03-20-2023 End: 03-21-2023 ambulatory Ирина Gibson MD Facility: [facility] Start: 02-01-2023 End: 02-01-2023 ambulatory [facility] Start: 01-23-2023 End: 01-24-2023 ambulatory Ирина Gibson MD Facility:[facility] [place] Start: 01-09-2023 End: 01-10-2023 ambulatory Ирина Gibson MD Facility:[facility] [place] Start: 12-30-2022 End: 12-30-2022 ambulatory [facility] Start: 12-12-2022 End: 12-13-2022 ambulatory Ирина Gibson MD Facility:[facility] [place] Start: 10-25-2022 ambulatory LEÓN Ruiz lity:H1 Start: 10-14-2022 End: 10-14-2022 ambulatory LEONIE COYLE Facility:[facility] Start: 09-23-2022 End: 09-24-2022 ambulatory LEÓN DIAS Facility:[facility] Start: 09-14-2022 End: 09-15-[address] . Facility:[facility] Start: 09-02-2022 End: 09-03-2022 ambulatory LEÓN DIAS Facility:[facility] Start: 08-08-2022 End: 08-09-[address]HT[address] . Facility:[facility] Start: 07-18-2022 End: 07-19-2022 ambulatory LEÓN DIAS Facility:[facility] Start: 06-30-2022 End: 07-01-[address] . Facility:[facility] Start: 06-09-2022 End: 06-10-[address]HT[address] . Facility:[facility] Start: 05-23-2022 End: 05-23-[address] . Facility:[facility] Start: 05-02-2022 ambulatory LEÓN Ruiz lity:[facility]1 Start: 04-23-2022 End: 04-23-[address] MARINO FERNANDEZ Facility:[facility]1 Start: 04-22-2022 End: 04-22-[address] AMBROCIO Carter Facility:[facility]1 Start: 04-21-2022 End: 04-22-[address]HT[address] . Facility:[facility] Start: 04-08-2022 End: 04-09-2022 ambulatory LEÓN DIAS Facility:[facility]1 Start: 03-30-2022 End: 03-30-2022 ambulatory Rancho Chamorro Other [employer] Other Start: 03-30-2022 Telephone encounter Rancho BAKER [facility] Start: 03-28-2022 End: 03-29-[address] . Facility:[facility]1 Start: 03-27-[address] . Facili ty:H1 Start: 03-24-2022 Office outpatient vi sit 25 minutes Rancho Chamorro [facility] Start: 03-24-2022 End: 04-03-2022 ambulatory UNKNOWN PROVIDER [employer] Other Start: 03-16-2022 End: 03-16-2022 ambulatory Rancho Chamorro Other [employer] Other Start: 03-16-2022 Telephone encounter Rancho BAKER [facility] Start: 03-11-2022 End: 03-12-2022 ambulatory LEÓN DIAS Facility:[facility]1 Start: 02-18-2022 End: 02-19-2022 ambulatory LEÓN DIAS Facility:[facility]1 Start: 02-11-2022 End: 02-12-[address]HT[address] . Facility:[facility] Start: 01-28-2022 End: 01-29-2022 ambulatory LEÓN DIAS Facility:[facility]1 Start: 01-11-2022 End: 01-12-[address] AEV MEHTA . Facility:[facility]1 Start: 01-04-2022 End: 01-05-2022 ambulatory LEÓN DIAS Facility:[facility]1 Start: 12-23-2021 End: 12-23-2021 ambulatory Rancho Chamorro Other [employer] Other Start: 12-23-2021 Office outpatient vi sit 25 minutes Rancho Chamorro [facility] Start: 12-20-2021 End: 12-21-2021 ambulatory LEÓN DIAS Facility:[facility]1 Start: 12-13-2021 End: 12-14-2021 Evaluation and management of inpatient DR A[facility] MEHTA . Facility:[facility]1 Start: 12-07-2021 Encounter for preprocedural cardiovascular examination LEÓN DIAS [facility] Start: 12-06-2021 End: 12-06-2021 ambulatory LEÓN Tejada [facility] Facility:H1 Start: 12-05-2021 End: 12-05-[address]HT[address] . Facility:[facility]1 Start: 12-02-2021 End: 12-03-2021 ambulatory LEÓN Tejada [facility] Facility:[facility]1 Start: 12-02-2021 End: 12-03-2021 Encounter for preprocedural cardiovascular examination [facility] Facility:H1 Start: 11-30-2021 End: 12-01-2021 ambulatory [facility] Facility:H1 Start: 11-29-2021 End: 11-29-2021 ambulatory MIRNA PARSONS . Facility:[facility]1 Start: 11-17-2021 End: 11-17-2021 ambulatory Rancho Chamorro Other [employer] Other Start: 11-17-2021 Office outpatient vi sit 15 minutes Emilie Perez [facility] Start: 11-17-2021 Telephone encounter Rancho Hardwick [facility] Start: 11-04-2021 End: 11-09-2021 Evaluation and management of inpatient Nj Ferguson Facility:[facility] Start: 11-04-2021 End: 11-04-2021 ambulatory Rancho Chamorro Other [employer] Other Start: 11-04-2021 Telephone encounter Rancho Hardwick [facility] Start: 11-03-2021 (Procedure) Short Rancho Chamorro [facility] Start: 11-03-2021 End: 11-03-2021 ambulatory Emilie Gonzalez [employer] Other Start: 11-03-2021 Office outpatient vi sit 25 minutes Emilie Perez [facility] Start: 10-28-2021 End: 10-28-2021 ambulatory Rancho Chamorro Other [employer] Other Start: 10-28-2021 Office outpatient vi sit 25 minutes Rancho Chamorro [facility] Start: 10-26-2021 End: 10-26-2021 ambulatory Gunnar Fernandez Facility:[facility] Start: 10-07-2021 End: 10-07-2021 ambulatory Gunnar Fernandez Other [employer] Other Start: 10-07-2021 Telephone encounter Gunnar BAKER G [facility] Start: 10-06-2021 End: 10-06-2021 ambulatory Gunnar Fernandez [employer] Other Start: 10-06-2021 Office outpatient vi sit 15 minutes Gunnar Fernandez [facility] Start: 09-08-2021 End: 09-08-2021 ambulatory Gunnar Fernandez Other [employer] Other Start: 09-08-2021 Office outpatient vi sit 15 minutes Gunnar Fernandez [facility] Start: 04-22-2021 End: 04-29-2021 Evaluation and management of inpatient ROBERTA DANE Facility:[facility] Procedures Date Procedure Procedure Detail Performing Clinician Start: 12-12-2021 Transfusion of Nonau tologous Red Blood Cells into Peripheral Vein, Percutaneous Approach DR A[facility] MEHTA . Start: 11-04-2021 Antibody screen Gunnar Fernandez Comment on above: Order Comment: Trans fuse now? N Transfuse now? Y Number of units to transfuse now? 1 Transfuse now? Y Number of units to transfuse now? 1 Transfuse now? Y Number of units to transfuse now? 1 Transfuse now? Y Number of units to transfuse now? 1 Result Comment: PERF ORMED BY: [facility] [address] [place] [address] PATHOLOGIST SHIRT SEWER GERA CASTELLANOS M.D. Payers Date Payer Category Payer Medicaid [id number] 2022 Medicare 2022 Unknown 2021 Self-pay 1961 Medicare [id number] 1959 Self-pay [id number] 1959 Unknown [id number] 1948 Unknown [id number] 2.16.8 40.1.971462.3.579.2.647 1948 Unknown [id number] 2.16. 840.1.624624.3.579.2.732 1948 Unknown [id number] 2.16.84 0.1.520971.3.579.2.593 1948 Unknown [id number] 2.16.84 0.1.817177.3.579.2.593 1948 Unknown [id number] 2.16.84 0.1.630072.3.579.2.593 1948 Unknown [id number] 2.16.84 0.1.581064.3.579.2.593 1948 Unknown [id number] 2.16.84 0.1.879090.3.579.2.593 1948 Unknown [id number] 2.16.84 0.1.319823.3.579.2.593 1948 Unknown [id number] 2.16.84 0.1.468918.3.579.2.593 1948 Unknown [id number] 2.16.84 0.1.948127.3.579.2.593 1948 Unknown [id number] 2.16.84 0.1.405132.3.579.2.593 1948 Unknown [id number] 2.16.84 0.1.380952.3.579.2.593 1948 Unknown [id number] 2.16.84 0.1.620657.3.579.2.593 1948 Unknown [id number] 2.16.84 0.1.084259.3.579.2.593 1948 Unknown [id number] 2.16.84 0.1.056442.3.579.2.593 1948 Unknown [id number] 2.16.84 0.1.470793.3.579.2.593 1948 Unknown [id number] 2.16.84 0.1.198231.3.579.2.593 1948 Unknown [id number] 2.16.84 0.1.835924.3.579.2.593 1948 Unknown [id number] 2.16.84 0.1.947116.3.579.2.593 1948 Unknown [id number] 2.16.84 0.1.445509.3.579.2.593 1948 Unknown [id number] 2.16.84 0.1.185708.3.579.2.593 1948 Unknown [id number] 2.16.84 0.1.042684.3.579.2.593 1948 Unknown [id number] 2.16.84 0.1.430849.3.579.2.593 1948 Unknown [id number] 2.16.84 0.1.630703.3.579.2.593 1948 Unknown [id number] 2.16.84 0.1.834689.3.579.2.593 1948 Unknown [id number] 2.16.84 0.1.958196.3.579.2.593 1948 Unknown [id number] 2.16.84 0.1.676804.3.579.2.593 1948 Unknown [id number] 2.16.84 0.1.371052.3.579.2.593 1948 Unknown [id number] 2.16.84 0.1.593164.3.579.2.593 1948 Unknown [id number] 2.16.84 0.1.287207.3.579.2.593 1948 Unknown [id number] 2.16. 840.1.662033.3.579.2.196 1948 Unknown [id number] 2.16. 840.1.877414.3.579.2.196 1948 Unknown [id number] 2.16. 840.1.376872.3.579.2.196 1948 Unknown [id number] 2.16. 840.1.207403.3.579.2.196 Unknown [id number] 2.16.8 40.1.389242.3.579.2.531 Unknown [id number] 2.16.8 40.1.283070.3.579.2.531 Unknown [id number] 2.16.8 40.1.405614.3.579.2.531 Unknown [id number] 2.16.8 40.1.269216.3.579.2.531 Unknown [id number] 2.16.84 0.1.228075.3.579.2.593 Social History Date Type Detail Facility Sex Assigned At [employer] Other Clinical Notes 04-29-2021 to 10-31-2023 Note Date & Type Note Facility 10-31-2023 Note [facility] Consult Note [facility] Reason for visit: 10/30/20 Patient here for 6 mo follow up PAD, HFrEF, and device check. The SNF she resides in would like to know if they can weigh her weekly instead of daily. Patient states she has intermittent chest pain, lasting a few seconds at a time. Denies SOB, palpitations, lightheadedness/syncope, and bleeding on Eliquis. Sister says she sleeps a lot. Currently seeing wound care for LE wound. device check that was done on 10/31/2023 reveals episodes of underlying atrial fibrillation the last of which was noted on 01/29/2023 which lasted for about 30 seconds. the longest episode of A-fib lasted for about 22 days and then the highest ventricular rate noted was about 165 beats a minute in prior recordings. the RV threshold was 1.8 V at 0.4 ms with just 6% of RV pacing and 54% atrial pacing. she is being managed for her heart failure by Tracie Ambrocio. last echocardiogram done on 09/14/2022 reveals ejection fraction of 65% with RVSP of 35 mmHg Prior HPI: Linda Nascimento is a 73 y.o. year old with prior history of transferred from an [facility] to [facility] following a fall that she sustained. She was noted to be bradycardic and EKG at that time showed her to have bradycardia in the rate of 30s following admission to [facility] she was noted to have a first-degree heart block. Despite holding beta-blockers her heart rate was still in the 40s during wake hours. There was some concern about underlying sarcoidosis but there was no clear documentation of this to validate this. She subsequently underwent a dual-chamber pacemaker with Biotronik on 04/26/2021 for sinus pause that was noted. Past medical history: CKD, heart block, hypothyroidism, hyponatremia, essential hypertension, hyperlipidemia, iron deficiency anemia, osteoporosis, depression Past surgical history: Colonoscopy, tonsillectomy Social history: Denies smoking, alcohol use, recreational drug use Family history: Noncontributory Echocardiogram 05/02/2021 Findings Left Ventricle: The left ventricle is normal size. Global left ventricular systolic function is normal. The EF is 55 % visually. Left ventricular wall thickness is mildly increased. No regional wall motion abnormality. Diastolic dysfunction was indeterminate. Concentric cardiac remodeling. Right Ventricle: The right ventricle appears enlarged. Right ventricular systolic function appears reduced. Doppler studies suggest normal right sided pressures. Left Atrium: The left atrium is normal in size. Right Atrium: The right atrium is normal in size. Mitral Valve: Mild mitral annular calcification. No mitral regurgitation. Aortic Valve: The aortic valve is normal. No aortic valve regurgitation. Tricuspid Valve: Normal tricuspid valve. Trivial tricuspid regurgitation. Pulmonic Valve: Pulmonary valve appears normal. No pulmonary regurgitation. Aorta: Mild aortic dilatation . Great Vessels: IVC: The IVC is not visualized. Pericardium: No pericardial effusion. Device check that was performed on 08/09/2021 dual-chamber pacemaker with no evidence of arrhythmias PMH: Past Medical History: Diagnosis Date Abnormal ECG Anxiety and depression 04/23/2022 Arrhythmia Atrial fibrillation (CMS/HCC) Bipolar affective disorder (CMS/HCC) 04/23/2022 CAD (coronary artery disease) 04/23/2022 Chronic kidney disease 10/26/2021 GERD (gastroesophageal reflux disease) 04/23/2022 Hyperlipidemia 10/26/2021 Hypertension 11/18/2013 Iron deficiency anemia 04/23/2022 Sarcoidosis 11/18/2013 Sinus node dysfunction ([facility]/HCC) 04/23/2022 PSH: Past Surgical History: Procedure Laterality Date CARDIAC CATHETERIZATION CARDIAC PACEMAKER PLACEMENT COLONOSCOPY CT AORTA AND BILATERAL ILIOFEMORAL RUNOFF ANGIOGRAM W AND/OR WO IV CONTRAST 04/23/2022 CT AORTA AND BILATERAL ILIOFEMORAL RUNOFF ANGIOGRAM W AND/OR WO IV CONTRAST 04/23/[address] [facility] [address] IM[address] CT CHEST ANGIOGRAM W AND/OR WO IV CONTRAST 04/23/2022 CT CHEST ANGIOGRAM W AND/OR WO IV CONTRAST 04/23/[address] [facility] [address] IMAGING TONSILLECTOMY SH: Social Determinants of Health Tobacco Use: Medium Risk (12/30/2022) Patient History Smoking Tobacco Use: Former Smokeless Tobacco Use: Never Passive Exposure: Not on file Alcohol Use: Not on file Financial Resource Strain: Not on file Food Insecurity: Not on file Transportation Needs: Not on file Physical Activity: Not on file Stress: Not on file Social Connections: Not on file Intimate Partner Violence: Unknown (08/03/2023) [place] Safety & Environment Fear of Current or Ex-Partner: Not on file Emotionally Abused: Not on file Physically Abused: Not on file Sexually Abused: Not on file Physically or Sexually Abused: Not on file Depression: Not on file Housing Stability: Not on file Utilities: Not on file Allergies: Allergies Allergen Reactions House Dust Unknown Pollen Extr (more content not included)... [facility] 04-12-2023 Note Patient here for 3 m o follow up PAF, CAD, and sinus node dysfunction. Device is due to be checked again in October 2023. She denies chest pain, SOB, palpitations, and bleeding on Eliquis. Review of Systems Cardiovascular: Positive for leg swelling. Skin: Positive for poor wound healing. Musculoskeletal: Positive for arthritis, back pain, joint pain and muscle weakness. Neurological: Positive for weakness. All other systems reviewed and are negative. [facility] 04-12-2023 Note Cardiovascular Medic ine [place] [facility] SUBJECTIVE Chief Complaint Patient presents with Congestive Heart Failure Atrial Fibrillation Hyperlipidemia Coronary Artery Disease Linda Nascimento is a 72 y.o. female here for routine follow-up. Congestive Heart Failure Her past medical history is significant for CAD. Atrial Fibrillation Past medical history includes atrial fibrillation, CAD and CHF. Coronary Artery Disease Her past medical history is significant for CHF. 72-year-old lady that was initially seen by cardiology due to a fall that lead to her admission to [facility]. She was noted to be bradycardic and EKG at that time showed her to have bradycardia in the rate of 30s following admission to [facility] she was noted to have a first-degree heart block. Despite holding beta-blockers her heart rate was still in the 40s during wake hours. There was some concern about underlying sarcoidosis but there was no clear documentation of this to validate this. She subsequently underwent a dual-chamber pacemaker with Biotronik on 04/26/2021 for sinus pause that were noted. In 04/2022, she was admitted to [facility] for falls, new onset a.fib, NSTEMI and acute systolic HF with EF 40-45%. She had acute blood loss anemia from the hematomas as a result of her falls. She was deemed too high risk at that time for coronary angiogram or anticoagulation. She has additional hx of CKD, hypothyroidism, HTN, HLD, osteoporosis, depression 09/14/2022 She states she has been feeling well since last seen. She has atypical chest pain, occurs with rest and not exertion, lasts for a few minutes then resolves on its own. She does get SOB with heavier exertion or when she is in pain. Her PCP recently saw her and increased her diuretic. She denies c/o palpitations, dizziness/LH, orthopnea, PND, near syncope/syncope. 04/15/2023 She denies any changes since last seen. She still gets atypical chest pain that will last seconds and resolve on their own. She ambulates short distances without issues. She gets SOB if she tries to ambulate longer distances. She denies c/o palpitations, dizziness/LH, orthopnea, PND, near syncope/syncope. Patient Active Problem List Diagnosis Acute encephalopathy Stage 2 chronic kidney disease Mixed hyperlipidemia Primary hypertension Sarcoidosis Coronary artery disease involving makah coronary artery of makah heart without angina pectoris Sinus node dysfunction (CMS/HCC) Iron deficiency anemia Anxiety and depression Bipolar affective disorder, currently depressed, mild (CMS/HCC) Gastroesophageal reflux disease without esophagitis Acute blood loss anemia Elevated troponin Elevated d-dimer Hypomagnesemia Atrial fibrillation ([facility]) Hematoma of right lower extremity Prolonged QT interval Recurrent falls Cellulitis of right lower extremity Closed fracture of pelvis with nonunion NSTEMI (non-ST elevated myocardial infarction) ([facility]) HFrEF (heart failure with reduced ejection fraction) ([facility]) Bradycardia Chest pain Sleep apnea Chronic anemia Past Medical History: Diagnosis Date Abnormal ECG Anxiety and depression 04/23/2022 Arrhythmia Atrial fibrillation ([facility]) Bipolar affective disorder ([facility]) 04/23/2022 CAD (coronary artery disease) 04/23/2022 Chronic kidney disease 10/26/2021 GERD (gastroesophageal reflux disease) 04/23/2022 Hyperlipidemia 10/26/2021 Hypertension 11/18/2013 Iron deficiency anemia 04/23/2022 Sarcoidosis 11/18/2013 Sinus node dysfunction ([facility]) 04/23/2022 Family History Problem Relation Name Age of Onset Lung cancer Mother Stroke Father Social History Tobacco Use Smoking status: Former Types: Cigarettes Smokeless tobacco: Never Substance Use Topics Alcohol use: Never Drug use: Never Allergies Allergen Reactions House Dust Unknown Pollen Extracts Unknown ROS Review of Systems Cardiovascular: Positive for chest pain, dyspnea on exertion and leg swelling. Musculoskeletal: Positive for back pain, joint pain and myalgias. Neurological: Positive for weakness. All other systems reviewed and are negative. OBJECTIVE Visit Vitals BP 119/76 (BP Location: Left wrist, Patient Position: Sitting) Pulse 60 Ht 1.651 m (5' 5 ) Wt 127 kg (280 lb) Comment: per patient SpO2 95% BMI 46.59 kg/m??? OB Status Postmenopausal Smoking Status Former BSA 2.41 m??? Medications: Current Outpatient Medications: apixaban (Eliquis) 5 mg tablet, Take 1 tablet (5 mg) by mouth in the morning and at bedtime., Disp: 180 tablet, Rfl: 3 aspirin 81 mg EC tablet, Take 81 mg by mouth in the morning., Disp: , Rfl: baclofen (Lioresal) 10 mg tablet, Take 10 mg by mouth in the morning, at noon, and at bedtime., Disp: , Rfl: baclofen (Lioresal) 20 mg tablet, , Disp: , Rfl: buPROPion XL (Wellbutrin XL) 150 mg 24 hr tablet, Take 1 tablet (150 mg) by mouth in the morning. Do not crush, chew, or split. D (more content not included)... [facility] 02-01-2023 Note Patient here for 1 m o follow up labs. Spironolactone was stopped at last visit. She denies SOB, LE edema, chest pain, and bleeding on Eliquis. Review of Systems Musculoskeletal: Positive for arthritis, back pain, joint pain and muscle weakness. Neurological: Positive for weakness. All other systems reviewed and are negative. [facility] 02-01-2023 Note Cardiovascular Medic ine Progress Note SUBJECTIVE Follow up Linda Nascimento is a 72 y.o. year-old female with a past medical history including HTN, HLD, NSTEMI, HFrEF, and afib not on anticoagulation due to bleed, who presents today for follow up. She was previously transferred from an outside hospital to [facility] following a fall that she sustained and was noted to be bradycardic and ultimately received a Biotronik PPM on 04/26/2021. She had elevated troponin and was noted to have reduced EF but did not undergo an ischemic evaluation at the time due to inability to anticoagulate due to recent fall/bleed. Today, patient states that she is doing well. She denies any cardiac complaints or concerns. Patient denies any chest pain or shortness of breath. Patient denies any lower extremity edema, orthopnea, or proximal nocturnal dyspnea. No near-syncope or syncope. No dizziness or lightheadedness. Patient Active Problem List Diagnosis Acute encephalopathy Stage 2 chronic kidney disease Mixed hyperlipidemia Primary hypertension Sarcoidosis Coronary artery disease involving makah coronary artery of makah heart without angina pectoris Sinus node dysfunction (CMS/HCC) Iron deficiency anemia Anxiety and depression Bipolar affective disorder, currently depressed, mild (CMS/HCC) Gastroesophageal reflux disease without esophagitis Acute blood loss anemia Elevated troponin Elevated d-dimer Hypomagnesemia Atrial fibrillation (CMS/HCC) Hematoma of right lower extremity Prolonged QT interval Recurrent falls Cellulitis of right lower extremity Closed fracture of pelvis with nonunion NSTEMI (non-ST elevated myocardial infarction) (CMS/HCC) HFrEF (heart failure with reduced ejection fraction) (CMS/HCC) Bradycardia Chest pain Sleep apnea Chronic anemia Past Medical History: Diagnosis Date Abnormal ECG Anxiety and depression 04/23/2022 Arrhythmia Atrial fibrillation (CMS/HCC) Bipolar affective disorder (CMS/HCC) 04/23/2022 CAD (coronary artery disease) 04/23/2022 Chronic kidney disease 10/26/2021 GERD (gastroesophageal reflux disease) 04/23/2022 Hyperlipidemia 10/26/2021 Hypertension 11/18/2013 Iron deficiency anemia 04/23/2022 Sarcoidosis 11/18/2013 Sinus node dysfunction (CMS/HCC) 04/23/2022 Family History Problem Relation Name Age of Onset Lung cancer Mother Stroke Father Social History Tobacco Use Smoking status: Former Types: Cigarettes Smokeless tobacco: Never Substance Use Topics Alcohol use: Never Drug use: Never Allergies Allergen Reactions House Dust Unknown Pollen Extracts Unknown ROS Review of Systems 10 point ROS is perormed and is negative unless otherwise specified in HPI OBJECTIVE Visit Vitals BP 128/73 (BP Location: Left wrist, Patient Position: Sitting) Pulse 60 Ht 1.651 m (5' 5 ) SpO2 97% BMI 49.76 kg/m??? OB Status Postmenopausal Smoking Status Former BSA 2.5 m??? Medications: Current Outpatient Medications: apixaban (Eliquis) 5 mg tablet, Take 1 tablet (5 mg) by mouth in the morning and at bedtime., Disp: 180 tablet, Rfl: 3 aspirin 81 mg EC tablet, Take 81 mg by mouth in the morning., Disp: , Rfl: baclofen (Lioresal) 10 mg tablet, Take 10 mg by mouth in the morning, at noon, and at bedtime., Disp: , Rfl: buprenorphine (Butrans) 7.5 mcg/hour, , Disp: , Rfl: buPROPion XL (Wellbutrin XL) 150 mg 24 hr tablet, Take 1 tablet (150 mg) by mouth in the morning. Do not crush, chew, or split. Do not start before April 30, 2022., Disp: 30 tablet, Rfl: 0 carvedilol (Coreg) 25 mg tablet, Take 25 mg by mouth with breakfast and with evening meal., Disp: , Rfl: clonazePAM (KlonoPIN) 0.5 mg tablet, Take 1 tablet (0.5 mg) by mouth in the morning, at noon, and at bedtime for 2 days., Disp: 6 tablet, Rfl: 0 dapagliflozin (Farxiga) 10 mg, Take 1 tablet (10 mg) by mouth in the morning., Disp: 30 tablet, Rfl: 11 escitalopram (Lexapro) 10 mg tablet, Take 10 mg by mouth., Disp: , Rfl: ferrous sulfate 325 (65 Fe) MG tablet, Take 65 mg by mouth with breakfast., Disp: , Rfl: furosemide (Lasix) 20 mg tablet, Take 1 tablet (20 mg) by mouth in the morning. (Patient taking differently: Take 40 mg by mouth in the morning.), Disp: 30 tablet, Rfl: 11 HYDROcodone-acetaminophen (Preston) 7.5-325 mg tablet, , Disp: , Rfl: lamoTRIgine (LaMICtal) 150 mg tablet, Take 1 tablet (150 mg) by mouth in the morning. Do not start before April 30, 2022., Disp: 30 tablet, Rfl: 0 losartan (Cozaar) 25 mg tablet, Take 1 tablet (25 mg) by mouth in the morning. Do not start before April 30, 2022., Disp: 30 tablet, Rfl: 0 OLANZapine (ZyPREXA) 10 mg tablet, 10 mg at bedtime., Disp: , Rfl: pantoprazole (ProtoNix) 40 mg EC tablet, Take 1 tablet (40 mg) by mouth before breakfast. Do not crush, chew, or split. Do not start before April 30, 2022., Disp: 30 tablet, Rfl: 0 potassium chloride CR (Klor-Con M10) 10 mEq ER tablet, (more content not included)... [facility] 12-30-2022 Note Cardiovascular Medic ine Progress Note SUBJECTIVE Follow up Linda Nascimento is a 72 y.o. year-old female with a past medical history including HTN, HLD, NSTEMI, HFrEF, and afib not on anticoagulation due to bleed, who presents today for follow up. She was previously transferred from an outside hospital to [facility] following a fall that she sustained and was noted to be bradycardic and ultimately received a Biotronik PPM on 04/26/2021. She had elevated troponin and was noted to have reduced EF but did not undergo an ischemic evaluation at the time due to inability to anticoagulate due to recent fall/bleed. Patient adamantly denies any cardiac complaints or concerns. Patient denies any chest pain or shortness of breath. Patient denies any lower extremity edema, orthopnea, or proximal nocturnal dyspnea. No near-syncope or syncope. No dizziness or lightheadedness. Patient Active Problem List Diagnosis Acute encephalopathy Stage 2 chronic kidney disease Mixed hyperlipidemia Primary hypertension Sarcoidosis Coronary artery disease involving makah coronary artery of makah heart without angina pectoris Sinus node dysfunction (CMS/HCC) Iron deficiency anemia Anxiety and depression Bipolar affective disorder, currently depressed, mild (CMS/HCC) Gastroesophageal reflux disease without esophagitis Acute blood loss anemia Elevated troponin Elevated d-dimer Hypomagnesemia Atrial fibrillation (CMS/HCC) Hematoma of right lower extremity Prolonged QT interval Recurrent falls Cellulitis of right lower extremity Closed fracture of pelvis with nonunion NSTEMI (non-ST elevated myocardial infarction) (CMS/HCC) HFrEF (heart failure with reduced ejection fraction) (CMS/HCC) Bradycardia Chest pain Sleep apnea Chronic anemia Past Medical History: Diagnosis Date Abnormal ECG Anxiety and depression 04/23/2022 Arrhythmia Atrial fibrillation ([facility]/HCC) Bipolar affective disorder ([facility]/HCC) 04/23/2022 CAD (coronary artery disease) 04/23/2022 Chronic kidney disease 10/26/2021 GERD (gastroesophageal reflux disease) 04/23/2022 Hyperlipidemia 10/26/2021 Hypertension 11/18/2013 Iron deficiency anemia 04/23/2022 Sarcoidosis 11/18/2013 Sinus node dysfunction ([facility]/HCC) 04/23/2022 Family History Problem Relation Name Age of Onset Lung cancer Mother Stroke Father Social History Tobacco Use Smoking status: Former Types: Cigarettes Smokeless tobacco: Never Substance Use Topics Alcohol use: Never Drug use: Never Allergies Allergen Reactions House Dust Unknown Pollen Extracts Unknown ROS Review of Systems 10 point ROS is perormed and is negative unless otherwise specified in HPI OBJECTIVE Visit Vitals BP 107/63 (BP Location: Right wrist, Patient Position: Sitting) Pulse 60 Ht 1.651 m (5' 5 ) SpO2 96% BMI 49.76 kg/m??? OB Status Postmenopausal Smoking Status Former BSA 2.5 m??? Medications: Current Outpatient Medications: apixaban (Eliquis) 5 mg tablet, Take 1 tablet (5 mg) by mouth in the morning and at bedtime., Disp: 180 tablet, Rfl: 3 aspirin 81 mg EC tablet, Take 81 mg by mouth in the morning., Disp: , Rfl: baclofen (Lioresal) 10 mg tablet, Take 10 mg by mouth in the morning, at noon, and at bedtime., Disp: , Rfl: buPROPion XL (Wellbutrin XL) 150 mg 24 hr tablet, Take 1 tablet (150 mg) by mouth in the morning. Do not crush, chew, or split. Do not start before April 30, 2022., Disp: 30 tablet, Rfl: 0 carvedilol (Coreg) 25 mg tablet, Take 25 mg by mouth with breakfast and with evening meal., Disp: , Rfl: clonazePAM (KlonoPIN) 0.5 mg tablet, Take 1 tablet (0.5 mg) by mouth in the morning, at noon, and at bedtime for 2 days., Disp: 6 tablet, Rfl: 0 dapagliflozin (Farxiga) 10 mg, Take 1 tablet (10 mg) by mouth in the morning., Disp: 30 tablet, Rfl: 11 escitalopram (Lexapro) 10 mg tablet, Take 10 mg by mouth., Disp: , Rfl: ferrous sulfate 325 (65 Fe) MG tablet, Take 65 mg by mouth with breakfast., Disp: , Rfl: furosemide (Lasix) 20 mg tablet, Take 1 tablet (20 mg) by mouth in the morning. (Patient taking differently: Take 40 mg by mouth in the morning.), Disp: 30 tablet, Rfl: 11 lamoTRIgine (LaMICtal) 150 mg tablet, Take 1 tablet (150 mg) by mouth in the morning. Do not start before April 30, 2022., Disp: 30 tablet, Rfl: 0 losartan (Cozaar) 25 mg tablet, Take 1 tablet (25 mg) by mouth in the morning. Do not start before April 30, 2022., Disp: 30 tablet, Rfl: 0 OLANZapine (ZyPREXA) 10 mg tablet, 10 mg at bedtime., Disp: , Rfl: pantoprazole (ProtoNix) 40 mg EC tablet, Take 1 tablet (40 mg) by mouth before breakfast. Do not crush, chew, or split. Do not start before April 30, 2022., Disp: 30 tablet, Rfl: 0 potassium chloride CR (Klor-Con M10) 10 mEq ER tablet, Take 10 mEq by mouth in the morning and at bedtime. Do not crush or chew., Disp: , Rfl: spironolactone (Aldactone) 25 mg tablet, Take 0.5 tablets (12.5 (more content not included)... [facility] 12-30-2022 Note Patient here for 3 m o follow up PAF, HFrEF, and bradycardia. Chest pain has resolved since last visit. Says she has a lot of back pain and her bottom is sore. Due for device interrogation in Apr 2023. She states she's feeling ok and doesn't see the need to be here today, as her home monitor always says ok on it . Atorvastatin is no longer on patient's med list. [facility] 03-30-2022 Evaluation note Encounter Date Diagnosis Assessment Notes Mar, Other spondylosis with radiculopathy, lumbar region (ICD-10 - M47.26) [employer] Other 10-13-2022 Evaluation note* Encounter Date Diagnosis Assessment Notes Treatment Notes Treatment Clinical Notes Mar, Osteoarthritis of knees, bilateral (ICD-10 - M17.0) Patient was encouraged to continue care with orthopedics. Mar, Other spondylosis with radiculopathy, lumbar region (ICD-10 - M47.26) We discussed treatment options for the patient's persistent lumbar pain radiating into the anterior aspect of her right lower extremity, extending past her knee into her foot. Given MRI results, as well as location of pain and exam findings, patient is a candidate for a repeat right lumbar transforaminal epidural steroid injection under floriscopic guidance, which we will proceed with. Risks and benefits of procedure explained to patient; patient verbalizes understanding. In the meantime we will increase her Gabapentin from 300mg to 600 mg twice daily. Anatomy of spine discussed in detail withnpatient in regards to patients condition. Mar, Chronic pain (ICD-10 - G89.29) Mar, Other Above note writ ten by Summer Molina LPN, Director Data. Edited and approved by Dr. Rancho Chamorro MD. [employer] Other 10-05-2022 Evaluation note* Encounter Date Diagnosis Assessment Notes Treatment Notes Treatment Clinical Notes Mar, Other low back pain (ICD-10 - M54.59) [employer] Other 07-14-2022 Evaluation note* Encounter Date Diagnosis Assessment Notes Treatment Notes Treatment Clinical Notes Dec, Osteoarthritis of knees, bilateral (ICD-10 - M17.0) Patient was encouraged to continue care with orthopedics. Dec, Other spondylosis with radiculopathy, lumbar region (ICD-10 - M47.26) Patient continues to benefit from a previous right transforaminal epidural steroid injection and denies any complaints of lumbar pain at this time. We will continue to monitor and proceed with future treatment to the area as needed. Anatomy of spine discussed in detail with patient in regards to patients condition. Overall, patient believes their pain is reasonably well controlled and she is in agreement with our treatment plan. Dec, Chronic pain (ICD-10 - G89.29) Dec, Other Above note writ ten by Mika Villalobos MA, Director Data. Edited and approved by Dr. Rancho Chamorro MD. [employer] Other 06-08-2022 Evaluation note* Encounter Date Diagnosis Assessment Notes Treatment Notes Treatment Clinical Notes Nov, Osteoarthritis of knees, bilateral (ICD-10 - M17.0) Patient was encouraged to continue care with orthopedics. Nov, Other spondylosis with radiculopathy, lumbar region (ICD-10 - M47.26) Patient notes minimal complaints of lumbar pain at this time. She attributes this to a recent right transforaminal epidural steroid injection. We will continue to monitor and proceed with future treatment to the area as needed. Anatomy of spine discussed in detail with patient in regards to patients condition. Telephone call ended. Nov, Hip pain (ICD-10 - M25.559) Patients primary complaint today is hip pain however it is tolerable at this time. We will continue to monitor. Nov, Chronic pain (ICD-10 - G89.29) Nov, Other Above note writ ten by Mika Villalobos MA, Director Data. Edited and approved by Dr. Rancho Chamorro MD. [employer] Other 06-08-2022 Evaluation note* Encounter Date Diagnosis Assessment Notes Treatment Notes Treatment Clinical Notes Nov, Acute pain of left knee (ICD-10 - M25.562) Nov, Traumatic hematoma of left knee, initial encounter (ICD-10 - S80.02XA) Patient instructed to use ice x 5 days then heat. Rx given for Keflex BID x 14 day. Continue current wound care. We will recheck in four weeks, case discussed with Dr. Diaz [facility] has been contacted and will consult wound care. [employer] Other 05-25-2022 Evaluation note* Encounter Date Diagnosis Assessment Notes Treatment Notes Treatment Clinical Notes October, Acute pain of left knee (ICD-10 - M25.562) October, Traumatic hematoma of left knee, initial encounter (ICD-10 - S80.02XA) Aspiration of knee joint performed under sterile technique, patient tolerated well. 26 cc of blood tinged fluid obtained, no evidence of infection. Aspiration of hematoma attempted, no fluid obtained. Pressure dressing applied. Patient instructed to use ice x 5 days then heat. Rx given for Keflex BID x 14 days and Preston. Patient and sister instructed to contact office with any signs of infection or significant changes [employer] Other 05-19-2022 Evaluation note* Encounter Date Diagnosis Assessment Notes Treatment Notes Treatment Clinical Notes October, Other low back pain (ICD-10 - M54.59) October, Other spondylosis with radiculopathy, lumbar region (ICD-10 - M47.26) We discussed treatment options for the patient's persistent lumbar pain radiating into the anterior aspect of her right lower extremity, extending past her knee into her foot. Recent MRI results show evidence of disc buldge at L4, degenerative changes and foraminal narrowing with mass effect on right L4 nerve, which is consistent with her pain symptoms. Given MRI results, as well as location of pain and exam findings, patient is a candidate for a right lumbar transforaminal epidural steroid injection under fluoroscopic guidance, which we will proceed with. Risks and benefits of procedure explained to patient; patient verbalizes understanding. Additionally, we will plan on trialing Gabapentin 300 mg two times daily. Risks and side effects of this medication was discussed in detail with the patient who voiced understanding. Anatomy of spine discussed in detail inpatient in regard to patients condition October, Osteoarthritis of knees, bilateral (ICD-10 - M17.0) Patient denies any complaints of knee pain today, she attributes this to previous genicular nerve blocks. We will proceed with a repeat block as needed. Overall, patient believes their pain is reasonably well controlled and she is in agreement with our treatment plan. October, Chronic pain (ICD-10 - G89.29) October, Other Above note writ ten by Summer Molina LPN, Director Data. Edited and approved by Dr. Rancho Chamorro MD. [employer] Other 04-28-2022 Evaluation note* Encounter Date Diagnosis Assessment Notes Treatment Notes Treatment Clinical Notes Sep, Pacemaker (ICD-10 - Z95.0) [employer] Other 04-27-2022 Evaluation note* Encounter Date Diagnosis Assessment Notes Treatment Notes Treatment Clinical Notes Sep, Morbid obesity (ICD- 10 - E66.01) Today we discussed obesity. We discussed the range of BMI. We discussed weight loss strategies through increased physical activity as well as decrease caloric intake. We offered referral for bariatric services. Our discussion is limited to 5 minutes. Sep, Trochanteric bursiti s, left hip (ICD-10 - M70.62) This seems to be improved at this time. We will continue to monitor The patient has been involved in our cooperative treatment plan and agrees to move forward with treatment at this time. Sep, Unspecified fracture of left pubis, subsequent encounter for fracture with delayed healing (ICD-10 - S32.502G) continue vitamin D and calcium supplementation. Weightbearing as tolerated without restrictions. Continue use safety devices for ambulation. She can follow-up on an as-needed basis Sep, Lumbar pain (ICD-10 - M54.50) Sep, Spondylolisthesis of lumbar region (ICD-10 - M43.16) returns with radicular symptoms down the right leg. At this juncture we have discussed the findings and diagnosis as well as personally reviewed appropriate imaging and performed interpretation of related testing and examination with the patient in office today. Her x-rays show a spondylolisthesis. At this time I recommend an MRI and referral to Dr. Nataliya Chamorro for injection consideration The patient has been involved in our cooperative treatment plan and agrees to move forward with treatment at this time. Sep, Osteoarthritis of lumbar spine, unspecified spinal osteoarthritis complication status (ICD-10 - M47.816) [employer] Other 03-30-2022 Evaluation note* Encounter Date Diagnosis Assessment Notes Treatment Notes Treatment Clinical Notes Aug, Morbid obesity (ICD-10 - E66.01) Today we discussed obesity. We discussed the range of BMI. We discussed weight loss strategies through increased physical activity as well as decrease caloric intake. We offered referral for bariatric services. Our discussion is limited to 5 minutes. Aug, Trochanteric bursitis, left hip (ICD-10 - M70.62) presents with trochanteric bursitis on the right. At this juncture we have discussed the findings and diagnosis as well as personally reviewed appropriate imaging and performed interpretation of related testing and examination with the patient in office today. Prior medical notes from Dr. Scott and history have been reviewed. At this time I would recommend conservative treatment including anti-inflammatory medications, stretching, physical therapy and corticosteroid injections. Today we have initiated cortisone injection. Under sterile technique the patient's most tender area over the right greater trochanter was injected with 4 cc Marcaine 1 cc of Kenalog, she tolerated this well. Continue anti-inflammatories . We will plan for follow-up as needed. The patient has been involved in our cooperative treatment plan and agrees to move forward with treatment at this time. This appears to be pain secondary to greater trochanteric bursitis. Discussed treatment options as oral or topical NSAIDs, physical therapy with iontophoresis, or cortisone injection to the greater trochanteric bursa. Patient was prepped and cortisone was injected into the greater trochanteric bursa under sterile conditions. Patient tolerated injection well with no adverse reactions. Aug, Unspecified fracture of left pubis, subsequent encounter for fracture with delayed healing (ICD-10 - S32.502G) continue vitamin D and calcium supplementation. Weightbearing as tolerated without restrictions. Continue use safety devices for ambulation. She can follow-up on an as-needed basis Xrays reviewed with patient. Patient is progressing well. Advised to do ROM and activity as tolerated, no restrictions. To continue calcium and vitamin D. To call with questions or concerns. [employer] Other 11-18-2021 NoteMR#: [id number] I [facility] Pt. Name: Linda Nascimento Admitted: 04/21/2021 Discharged: 04/29/2021 Date of : 1950 Physician: Billy Lozada MD DISCHARGE SUMMARY PRIMARY DIAGNOSES: 1. Recurrent syncope secondary to heart block, status post pacemaker in place. 2. Urinary retention, status post Forte catheter. Follow up with the Urology outpatient. 3. Symptomatic bradycardia. 4. Acute kidney injury, resolved. 5. Acute on chronic anemia. Follow up with GI for outpatient procedures. 6. Mechanical fall. 7. Chronic kidney disease. 8. Essential hypertension. 9. Hyperlipidemia. CONSULTATIONS: 1. PMNR. 2. Cardiology. 3. Gastroenterology. 4. Trauma. HOSPITAL COURSE: As below. The patient is a 70-year-old female, who was transferred from outlying facility for cardiology evaluation. She reported to an outside hospital for evaluation after experiencing a fall resulting in trauma to her head. She stated that she was trying to walk outside of her home with her walker and slipped and fell. Denies loss of consciousness, headache, dizziness, lightheadedness, chest pain, or shortness of breath prior to fall. After the fall, she had a few headaches without sensitivity to light or noise. She was noted to be bradycardic in the heart in 30s at outside hospital. EKG was showing first-degree AV block, however documentation from hospital showed possible second-degree AV block as well. The patient's beta marah was held, but her heart rate was remained in 40s and 50s while the patient is awake. The patient denies any symptoms with bradycardia. Her hemoglobin did drop from 10.9 to 8.7, the 1st day of hospitalization. The patient was subsequently transferred to the [facility] for higher level of care. Cardiology and Gastroenterology initially evaluated the patient. GI did not recommend any aggressive measures for now as hemoglobin was stable. The patient did not have melena or hematochezia and the patient plans to follow up with them as an outpatient. Cardiology team evaluated patient and initially recommended no pacemaker, but subsequently patient had multiple pauses and later on decided for the pacemaker. Patient underwent pacemaker placement on Monday without any complication. Postop chest x-ray was unremarkable for any pneumothorax. Postoperatively, the patient developed urinary retention and Urology evaluated patient. Recommended to keep the Forte catheter in and follow up with them outpatient. PMR team evaluated patient. Recommended to inpatient rehab patient. The patient is medically stable for discharge and to inpatient rehab facility. PHYSICAL EXAMINATION: VITAL SIGNS: At the time of discharge, the patient's vital signs are stable. GENERAL: Patient alert and oriented x4. No visible distress noted. HEAD AND NECK: Atraumatic, normocephalic. EYES: EOMI, PERRLA. CHEST: No sign of labored breathing. MUSCULOSKELETAL: Intact. NEUROLOGY: Nonfocal. PSYCH: More stable. DISCHARGE MEDICATIONS: As per reconcile in the computer. DISCHARGE DISPOSITION: Patient is going home in stable condition. Total 45 minutes evaluating the patient, reviewed the chart, and coordinating care with nursing staff. Electronically Signed by: Billy Lozada MD 05/29/2021 12:13 P Billy Lozada MD Date Dict: 04/29/2021/11:44 A/Billy Lozada MD Date Trans: 04/29/2021 12:17 P/mmo [id number] cc: Leslie Arroyo M.D. [address] [place] [id number] M[address] [id number] [facility]als Health SystemEvaluation noteNo InformationNortMeadows Psychiatric Center [employer] Other History general Narrative - Reported* Type Description Date Medical History bipolar Medical History Arthritis Medical History high blood pressure Medical History chronic depression Medical History iron deficiency anemia Medical History kidney disease Medical History hyperlipidemia Medical History anxiety Medical History vitamin D deficiency Surgical History tonsillectomy Surgical History laparoscopy Hospitalization History depression [place] [employer] Other Summary Purpose Family History No Family History Records FoundNo Family History Records FoundNo Family History Records FoundNo Family History Records FoundNo Family History Records FoundNo Family History Records Found Advance Directives No Advanced Directives Records FoundNo Advanced Directives Records FoundNo Advanced Directives Records FoundNo Advanced Directives Records FoundNo Advanced Directives Records FoundNo Advanced Directives Records Found Additional Source Comments INFORMATION SOURCE (unrecogn ized section and content) DATE CREATED AUTHOR 05/30/[address] [facility] DATE CREATED AUTHOR AUTHOR'S ORGANIZ ATION 04/05/2022 [facility] DATE CREATED AUTHOR AUTHOR'S ORGANIZ ATION 07/16/2022 [facility] DATE CREATED AUTHOR AUTHOR'S ORGANIZ ATION 10/19/2022 [facility] DATE CREATED AUTHOR AUTHOR'S ORGANIZ ATION 03/27/2023 [facility] DATE CREATED AUTHOR AUTHOR'S ORGANIZ ATION 11/02/2023 [facility] REASON FOR VISIT (unrecogniz ed section and content) DIRE PAIN IN RT LEG HIP AREA Check right Hip and legNo InformationFOLLOW UP AFTER TRANSFORAMINALRIGHT TRANSFORAMINAL EPIDURAL L4/CJMRI RESULTS PER Jluis InformationLeft Knee Pain2 WK RECHECK1 MONTH RECHECKNo Information4 MONo Information FOR RECORDS PERTAINING TO PATIENTS WHO ARE OR HAVE BEEN ENROLLED IN A CHEMICAL DEPENDENCY/SUBSTANCEABUSE PROGRAM, SOME INFORMATION MAY BE OMITTED. This clinical summary was aggregated from multiple sources. Caution should be exercised in using it in the provision of clinical care. This summary normalizes information from multiple sources, and as a consequence, information in this document may materially change the coding, format and clinical context of patient data. In addition, data may be omitted in some cases. CLINICAL DECISIONS SHOULD BE BASED ON THE PRIMARY CLINICAL RECORDS. [employer] provides no warranty or guarantee of the accuracy or completeness of information in this document.
== END 2024-04-02 10:38 | disposition home or self-care (01) ==
LOC: PST 10:38
PROVIDERS: PCP Family Medicine; Visit Provider Podiatrist Foot & Ankle Surgery
DX: Z01.818 Encounter for other preprocedural examination (principal); L97.929 Non-pressure chronic ulcer of unspecified part of left lower leg with unspecified severity; L97.919 Non-pressure chronic ulcer of unspecified part of right lower leg with unspecified severity

== ENCOUNTER 2024-04-04 07:38 | Day surgery (SDC) | payer MEDICARE, MEDICAID, SELFPAY ==
[2024-04-04 08:20] VITALS: BP 138/68; PULSE 60; TEMP 36.4; O2SAT 95; BMI 41.8
[2024-04-04 08:30] LABS: Glucometer 109 mg/dL (74-106)
--- NOTE | 2024-04-04 08:30 | PC.NURSE ---
0830: pt has bilateral wounds to lower legs,pts legs are wrapped per skilled nursing at this time.
[2024-04-04] MEDS: 0.9 % SODIUM CHLORIDE 500 ML 50 ML IV (08:31)
[2024-04-04] MEDS: VANCOMYCIN HCL 1,500 MG in 0.9 % SODIUM CHLORIDE 500 ML 250 MG IV (09:49)
[2024-04-04] MEDS: BUPIVACAINE HCL 0.5% PF 50 MG/10 ML VIAL 20 ML INJ (10:40)
[2024-04-04 11:05] VITALS: BP 111/57; PULSE 60; TEMP 36.2; O2SAT 92
[2024-04-04 11:18] LABS: Glucometer 108 mg/dL (74-106)
[2024-04-04 11:20] VITALS: BP 105/70; PULSE 61; O2SAT 90
[2024-04-04] MEDS: OXYCODONE HCL 5 MG TABLET 10 MG PO (11:51)
[2024-04-04 12:00] VITALS: BP 111/79; PULSE 60; O2SAT 93
--- NOTE | 2024-04-04 12:02 | PM.ORONB ---
Brief Operative Note Date of procedure: 04/04/24 Pre-op diagnosis general: Bilateral leg venous stasis ulcerations Post-op diagnosis: same as pre-op Procedure: Procedure performed: Application of allogenic skin substitute 54 centimeter squared bilateral legs Indications for procedure: Patient is a 73-year-old female with multiple medical comorbidities including chronic venous stasis/swelling and nonhealing bilateral leg ulcers. Recently saw her in the wound center and she has not progressed with local wound care. I discussed the potential risks and benefits of the above procedure with her and her sister and patient wished to proceed with the above procedure. Intraoperative findings: Left leg ulcer measured 7.5 x 7 cm and the right leg ulcer measured 1.5 x 1.0 cm. Both wounds were full-thickness with no deep soft tissue or bone exposure. Both wounds were healthy without evidence of infection. Procedure in detail: Patient was identified in preoperative holding by myself which time correct side and site was marked and consent was obtained. Preoperative antibiotics were started and patient was brought back in the operating theater placed on table in supine position. IV sedation was administered and bilateral legs were prepped and draped in the usual sterile fashion. Local anesthesia was provided with 20 cc of half percent Marcaine plain and a formal timeout was performed. Wounds were debrided in the same manner using excisional debridement technique with use of 15 blade with forceps, curettes and Versajet. The wounds were debrided of all nonviable and questionable tissue. Hemostasis was controlled on the field with temporary pressure and Pete powder. Once hemostasis was obtained allogenic skin substitute was placed over the wound bed on the left leg and held in place by shawn. Then an additional allergenic skin substitute was placed on the right leg and held in place with shawn. Mepitel was placed over each skin substitute followed by a bulky dry sterile dressing. Then a multilayer compression dressing was placed on each extremity from the forefoot to the popliteal fossa. Patient tolerated the procedure and anesthesia well was transported to the recovery room with vital signs stable and brisk capillary refill to bilateral toes. Postoperative plan: Discharge back to her nursing home facility under the care of her sister Weightbearing as tolerated Keep dressings clean dry and intact Medications were sent to her nursing home facility and confirmed via telephone. Follow-up in 5 to 7 days for dressing change Implants: Dermacell allogenic skin substitute Anesthesia: MAC and local Surgeon: Camden Reveles Estimated blood loss (mL): 25 Tourniquet time (min): 0 Pathology: none sent Condition: stable Disposition: PACU
== END 2024-04-04 12:00 | disposition home or self-care (01) ==
PROVIDERS: PCP Family Medicine; Visit Provider Podiatrist Foot & Ankle Surgery
PROC: (CPT 15002; principal; 2024-04-04 09:00)
DX: I87.313 Chronic venous hypertension (idiopathic) with ulcer of bilateral lower extremity (principal); L97.822 Non-pressure chronic ulcer of other part of left lower leg with fat layer exposed; L97.818 Non-pressure chronic ulcer of other part of right lower leg with other specified severity; E66.01 Morbid (severe) obesity due to excess calories; Z68.42 Body mass index [BMI] 45.0-49.9, adult; G47.33 Obstructive sleep apnea (adult) (pediatric); I10 Essential (primary) hypertension; I48.91 Unspecified atrial fibrillation; Z95.0 Presence of cardiac pacemaker; K21.9 Gastro-esophageal reflux disease without esophagitis; R56.9 Unspecified convulsions
CPT/HCPCS: 15002; 15271; 15272; 36415; 80329; 82948; J0665; J2250; J2704; J3010; J3370; Q4122

== ENCOUNTER 2024-04-16 15:38 | Outpatient (OUT) | payer MEDICARE, MEDICAID, SELFPAY | END 2024-04-16 15:39 | disposition home or self-care (01) | LOC: WC 15:38 | PROVIDERS: PCP Family Medicine; Visit Provider Physician Assistant | DX: I87.313 Chronic venous hypertension (idiopathic) with ulcer of bilateral lower extremity (principal); L97.822 Non-pressure chronic ulcer of other part of left lower leg with fat layer exposed; L97.818 Non-pressure chronic ulcer of other part of right lower leg with other specified severity | CPT/HCPCS: G0463 ==

== ENCOUNTER 2024-05-01 13:40 | Outpatient (OUT) | payer MEDICARE, MEDICAID, SELFPAY ==
--- OUTSIDE RECORDS SUMMARY | 2024-05-01 13:50 | XMS_ITS | CCD ---
Author Organization [facility] Care Team Providers Care Check Processor Name Role Phone ROBERTA VELA Admitting Unavailable [...] Admitting Unavailable [facility] Unavailable Dwgiht Diaz II Consulting UnavailDioni Beltran Consulting Unavailable Emilie Perez Admitting Unavailable [facility] Unavailable Emilie Perez Attending Unavailable JANINE Carter, DR DORADO Primary Care Unavailable JANINE ., DR DORADO Admitting Unavailable JANINE ., [...] Unavailable PAY ., DR DING Consulting Unavailable LEONIE COYLE Consulting Unavailable LEÓN LLAMAS Consulting Unavailable [...] HOY ., DR DORADO Primary Care Unavailable CAIRO, DR RISHABH Martin Consulting Unavailable PAOLOANDER, PETER [...] extract; Translations: [HOUSE DUST] Drug Allergy 4 [facility] Repository (1 source) Pollen; Translations: [POLLEN EXTRACTS] Propensity to adverse reactions to drug (disorder) 4 [facility] Repository Medications Current Medications Medication Drug [...] Start: 10-28-2021 take 1 capsule by mo [facility] every twelve hours Gabapentin 300 MG 1 capsule Orally BID for 30 day(s) October, Active hydrALAZINE hydrochloride 50 mg oral tablet (13 sources) Arteriolar Vasodilator take 1 tablet by mouth every eight hours hydrALAZINE HCl 50 MG 1 tablet with food Orally Three times a day Active take [facility] hours hydrALAZINE HCl 25 [...] region] Episodic Other aftercare (1 source) Other [facility]ci (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; Translations: [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] Onset: 10-18-2022 Episodic Other [...] Resolved: 2 Episodic Other aftercare (1 source) 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; Translations: [LONGTERM CURRENT USE ANTIBIOTICS] Onset: 2 Episodic Other aftercare (1 source) correction (current) use of aspirin; Translations: [LONGTERM CURRENT USE OF ASPIRIN] Onset: 2 Episodic Other aftercare (1 source) correction (current) use of insulin; Translations: [LONGTERM CURRENT USE OF INSULIN] Onset: 2 Episodic [...] Range Facility Office Visiton 10-31-2023 Follow-up visit [id number] Linda Nascimento 1950 F Date Provider Department Center 10/31/2023 ENOCH RAMIREZ JUAN Stock [facility] Family History Problem Relation Age of Onset Lung cancer Mother Stroke Father Family Status - Relation Status Age at Mother Father Level of Service:96118 [place] OFFICE/OUTPATIENT ESTABLISHED MOD MDM 30 MIN [facility] 36on 10-17-2023 36 Let's keep her medications the same. Thanks [facility] 36 Please ask what her current weight is. [facility] 36on 08-01-2023 36 Please confirm what her dose of lasix is. It looks like she is on 40mg daily. If this is the dose, please have her increase to 40mg BID x5 days then start a higher dose of lasix at 60mg daily. Follow-up BMP in 2 weeks. They can check her weight either every other day or 3 times a week. Thanks [facility] 36on 07-27-2023 36 Regarding note from [facility] with patient's weights and BP's and mention [...] Thanks! Printed and faxed back to [facility]. [facility] Office Visiton 04-12-2023 Follow-up visit [id number] Linda Nascimento 1950 F Date Provider Department Center 04/12/2023 MARKEL HARMAN CARD [facility] Family History Problem Relation Age of Onset Lung cancer Mother Stroke Father Family Status - Relation Status Age at Mother Father Level of Service:13816 [place] OFFICE/OUTPATIENT ESTABLISHED LOW MDM 20-29 MIN Reason for Visit and Comments: Congestive Heart Failure [127] Atrial Fibrillation [80] Hyperlipidemia [182] Coronary Artery Disease [187] [facility] Office Visiton 02-01-2023 Follow-up visit [id number] Linda Nascimento 1950 F Date Provider Department Center 02/01/2023 [facility] Family History Problem Relation Age of Onset Lung cancer Mother Stroke Father Family Status - Relation Status Age at Mother Father Level of Service:46644 [place] OFFICE/OUTPATIENT ESTABLISHED LOW MDM 20-29 MIN Normal [facility] Office Visiton 12-30-2022 Follow-up visit [id number] Linda Nascimento 1950 F Date Provider Department Center 12/30/2022 [facility] Family History Problem Relation Age of Onset Lung cancer Mother Stroke Father Family Status - Relation Status Age at Mother Father Level of Service:07499 [place] OFFICE/OUTPATIENT ESTABLISHED MOD MDM 30-39 MIN Normal [facility] CBC AUTO DIFFon 10-14-2022 BASO # 0.1 103/ul Normal 0.0-0.1 [facility] Comment on above: Performed By: #### C BC ####[facility] [address] [place] [address]Dr. Slick Broderick Basophils/100 WBC (Bld) 0.6 % Normal 0.2-2.0 [facility] Comment on above: Performed By: #### C BC ####[facility] K[address]bilt[address] [place] [address]Dr. Slick Broderick EO # 0.4 103/ul Normal 0.0-0.7 [facility] Comment on above: Performed By: #### C BC ####[facility] Yzidnktwjj4096 [place] [address]Dr. Slick Broderick Eosinophils/100 WBC (Bld) 3.9 % Normal 0.9-7.0 [facility] Comment on above: Performed By: #### C BC ####[facility] Tfiytrmbki0228 [place] [address]Dr. Slick Broderick Erythrocyte distribution width (RBC) [Ratio] 13.2 % Normal 11.0-15.0 [facility] Comment on above: Performed By: #### C BC ####[facility] Cbtaayvehd9037 [place] [address]Dr. Slick Broderick Hematocrit (Bld) [Volume fraction] 32.4 % Critically low 36.0-48.0 [facility] Comment on above: Performed By: #### C BC ####[facility] Ajsaqzifjv2570 [place] [address]Dr. Slick Broderick Hemoglobin (Bld) [Mass/Vol] 10.4 g/dL Critically low 12.0-16.0 [facility] Comment on above: Performed By: #### C BC ####[facility] Untsmqwwoj[address] [place] [address]Dr. Slick Broderick IG # 0.19 10e3/ul Critically high 0.00-0.03 [facility] Comment on above: Performed By: #### C BC ####[facility] [address] [place], [place] [address]Dr. Slick Broderick IG % 2.1 % Critically high 0.0-0.[address] [facility] Comment on above: Performed By: #### C BC ####[facility] Koklznflcp[address] [place], [place] [address]Dr. Slick Broderick LYMPH # 1.0 103/ul Critically low 1.2-3.8 [facility] Comment on above: Performed By: #### C BC ####[facility] Fsohhzcptr7257 [place] [address]Dr. Slick Broderick Lymphocytes/100 WBC (Bld) 11.4 % Critically low 20.5-60.0 [facility] Comment on above: Performed By: #### C BC ####[facility] Gkglvcgrjq4[address] [place] [address]Dr. Slick Broderick MANUAL DIFF REQ NO Normal The [facility] Comment on above: Performed By: #### C BC ####[facility] Mmszrad[address] [place], [place] [address]Dr. Slick Broderick MCH (RBC) [Entitic mass] 32.0 pg Normal 26.7-34.0 [facility] Comment on above: Performed By: #### C BC ####[facility] Lxkbsbuyxr0388 [place] [id number]. Slick Davie MCHC (RBC) [Mass/Vol] 32.1 g/dL Normal 29.9-35.2 [facility] Comment on above: Performed By: #### C BC ####[facility] Bhnnwyjhkl6092 [place] [id number]. Slick Davie MCV (RBC) [Entitic vol] 99.7 fL Critically high 81.0-99.0 [facility] Comment on above: Performed By: #### C BC ####[facility] Eebwnimqbj4890 [place] [id number]. Meaganwendie Davie MONO # 1.0 103/ul Critically high 0.3-0.[address] [facility] Comment on above: Performed By: #### C BC ####[facility] Qvycngpinw7777 [place] [address]Dr. Slick Broderick Monocytes/100 WBC (Bld) 10.8 % Normal 1.7-12.0 [facility] Comment on above: Performed By: #### C BC ####[facility] [address]sp[address] [place], [place] [id number]. Meaganwendie Davie NEUT # 6.4 103/ul Normal 1.4-6.5 [facility] Comment on above: Performed By: #### C BC ####[facility] Mouncpauvm[address] [place], [place] [id number]. Slick Broderick Neutrophils/100 WBC (Bld) 71.2 % Normal 43.0-75.0 [facility] Comment on above: Performed By: #### C BC ####[facility] Bdyrurpyqc[address] [place], [place] [phone]. Slick Broderick Platelet mean volume (Bld) [Entitic vol] 9.8 fL Normal 9.5-13.5 [facility] Comment on above: Performed By: #### C BC ####[facility] Cwfdoiutum[address] [place], [place] [id number]. Slick Broderick PLT 174 103/ul Normal 150-450 [facility] Comment on above: Performed By: #### C BC ####[facility] Thnantzrun4873 [place] [phone]. Slick Broderick RBC 3.25 106/ul Critically low 4.20-5.[address] [facility] Comment on above: Performed By: #### C BC ####[facility] Nwjnrsycgp6997 [place], [place] [address]Bo. Slick Broderick WBC 8.9 103/ul Normal 4.0-11.0 [facility] Comment on above: Performed By: #### C BC ####[facility] Xvwsdvabup4329 [place] [phone]. Slick Broderick CRPon 10-14-2022 CRP 0.5 mg/dL Normal <=1.0 [facility] Comment on above: Performed By: #### C RP, BMP ####[facility] Ysgudczyhs35[address] [place] [id number]. Slick Broderick D-DIMERon 10-14-2022 D-DIMER 0.86 mg/L FEU Critically high <=0.59 [facility] Comment on above: Performed By: #### D DIM ####[facility] Ovgbtnjynn7254 [place] [phone]. Slick Broderick D-DIMER COMMENTS SEE BELOW Normal The [facility] Comment on above: Result Comment: Incr eases [...] generalized hospitalization. Performed By: #### D DIM ####[facility] Umqxoqlnlu[address] [place] [address]Dr. Slick Broderick PROF CHEM 8 (BAS METB)on Anion gap [Moles/Vol] 10.1 mmol/L Normal [facility] Comment on above: Performed By: #### C RP, BMP ####[facility] Ybyctzrydu1289 [place] [address]Dr. Slick Broderick Calcium [Mass/Vol] 9.3 mg/dL Normal 8.5-10.1 [facility] Comment on above: Performed By: #### C RP, BMP ####[facility] Dzkztdryde[address] [place], [place] [address]Dr. Slick Broderick Chloride [Moles/Vol] 98 mmol/L Normal 98-107 [facility] Comment on above: Performed By: #### C RP, BMP ####[facility] Eelaflft[address] [place], [place] [address]Dr. Slick Broderick CO2 [Moles/Vol] 30.3 mmol/L Normal 21.0-32.0 [facility] Comment on above: Performed By: #### C RP, BMP ####[facility] Gaueehfcez[address] [place], [place] [address]Dr. Slick Broderick Creatinine [Mass/Vol] 2.15 mg/dL Critically high 0.55-1.02 [facility] Comment on above: Performed By: #### C RP, BMP ####[facility] Mdwwwkghey[address] [place], [place] [address]Dr. Slick Broderick EGFR-AF SUDANESE 27 mL/min/1.73m2 Critically low >=60 [facility] Comment on above: Performed By: #### C RP, BMP ####[facility] [address]txuwktz[address] [place], [place] [address]Dr. Slick Broderick EGFR-NON AF SUDANESE 22 mL/min/1.73m2 Critically low >=60 [facility] Comment on above: Performed By: #### C RP, BMP ####[facility] Fwgudcflax3665 [place] [address]Dr. Slick Broderick Glucose [Mass/Vol] 116 mg/dL Critically high 74-106 [facility] Comment on above: Performed By: #### C RP, BMP ####[facility] Eigvmxftel[address] [place], [place] [address]Dr. Slick Broderick Potassium [Moles/Vol] 4.4 mmol/L Normal 3.5-5.1 [facility] Comment on above: Performed By: #### C RP, BMP ####[facility] Rugfbatiah1302 [place] [address]Dr. Meaganwendie Broderick Sodium [Moles/Vol] 134 mmol/L Critically low 136-145 [facility] Comment on above: Performed By: #### C RP, BMP ####[facility] Llpqrhheke3933 [place] [address]Dr. Meaganwendie Broderick Urea nitrogen [Mass/Vol] 33.0 mg/dL Critically high 7.0-18.0 [facility] Comment on above: Performed By: #### C RP, BMP ####[facility] Xjsijgorsp1672 [place] [address]Dr. Meaganwendie Broderick Urea nitrogen/Creatinine [Mass ratio] 15.3 mg/mg Normal [facility] Comment on above: Performed By: #### C RP, BMP ####[facility] Jslnuavndf4[address] [place] [address]Dr. Meaganwendie Broderick US JENNY DOP LEG LTon 10-15-19 23 US JENNY DOP LEG LT Normal [facility] XR FEMUR LTon 10-14-2022 XR FEMUR LT Normal [facility] ECHOCARDIO M/2D COMPLETEon 0 09-14-2022 ECHOCARDIO M/2D COMPLETE Normal [facility] PRBC LEUKOREDUCEDon 06-09-20 22 PRBC LEUKOREDUCED Normal [facility] Comment on above: Performed By: #### P RBC ####[facility] Ymbwh[address] [place], [place] [address]Dr. Slick Broderick BNPon 04-23-2022 Natriuretic peptide B (Bld) [Mass/Vol] 08482.0 pg/mL Critically high <=900.0 [facility] Comment on above: Performed By: #### C MP, CMADM, BNP ####[facility] Suxcbveypk[address] [place] [address]Dr. Meaganwendie Broderick CARDIAC REYMUNDO ADMITon 022 CK [Catalytic activity/Vol] 121 U/L Normal 26-192 [facility] Comment on above: Performed By: #### C MP, CMADM, BNP ####[facility] Rshfdftuvm8794 [place] [address]Dr. Slick Broderick CK.MB [Mass/Vol] 5.67 ng/mL Critically high <=3.60 [facility] Comment on above: Performed By: #### C MP, CMADM, BNP ####[facility] Phtboowpuu9602 [place] [address]Dr. Slick Broderick HSTROP 3667.9 pg/mL Critically high 4.0-51.3 The [facility] Comment on above: Result Comment: CUT- OFF POINTS HAVE BEEN ESTABLISHED BASED ON THE FOURTH UNIVERSAL DEFINITIONS OF MYOCARDIALINFARCTION. THE UPPER REFERENCE LIMIT (URL) OF TROPONIN, DEFINED THE 99TH PERCENTILE OFcTnI DISTRIBUTION IN A REFERENCE POPULATION, HAS BEEN CONFIRMED THE DECISION THRESHOLDFOR [place] DIAGNOSIS. Performed By: #### C MP, CMADM, BNP ####[facility] [address]wjli[address] [place], [place] [address]Dr. Slick Broderick NEHEMIAH 225 ng/mL Critically high 9-[address] [facility] Comment on above: Performed By: #### C MP, CMADM, BNP ####[facility] Ovbzpgmqaw1097 [place] [address]Dr. Slick Broderick CBC AUTO DIFFon 04-23-2022 BASO # 0.0 103/ul Normal 0.0-0.1 [facility] Comment on above: Performed By: #### C BC ####[facility] Blkhnqrqcx6709 [place] [address]Dr. Slick Davie Basophils/100 WBC (Bld) 0.3 % Normal 0.2-2.0 [facility] Comment on above: Performed By: #### C BC ####[facility] Tazjaksoty4[address] [place] [address]Dr. Slick Broderick EO # 0.0 103/ul Normal 0.0-0.7 [facility] Comment on above: Performed By: #### C BC ####[facility] [address]qcjoq[address] [place], [place] [address]Dr. Slick Broderick Eosinophils/100 WBC (Bld) 0.3 % Critically low 0.9-7.0 [facility] Comment on above: Performed By: #### C BC ####[facility] Ignyulscmd0891 [place] [address]Dr. Slick Broderick Erythrocyte distribution width (RBC) [Ratio] 14.0 % Normal 11.0-15.0 [facility] Comment on above: Performed By: #### C BC ####[facility] Qaqiqvsjss0087 [place] [address]Dr. Slick Broderick Hematocrit (Bld) [Volume fraction] 21.9 % Critically low 36.0-48.0 [facility] Comment on above: Performed By: #### C BC ####[facility] Uhiuxzluqg[address] [place], [place] [address]Dr. Slick Broderick Hemoglobin (Bld) [Mass/Vol] 7.1 g/dL Critically low 12.0-16.0 [facility] Comment on above: Performed By: #### C BC ####[facility] [address]bkcjticzs[address] [place], [place] [address]Dr. Slick Broderick IG # 0.04 10e3/ul Critically high 0.00-0.03 [facility] Comment on above: Performed By: #### C BC ####[facility] [address]vqfierqbm[address] [place], [place] [address]Dr. Slick Broderick IG % 0.4 % Normal 0.0-0.5 [facility] Comment on above: Performed By: #### C BC ####[facility] Akgguqpksg[address] [place], [place] [address]Dr. Slick Broderick LYMPH # 0.8 103/ul Critically low 1.2-3.8 [facility] Comment on above: Performed By: #### C BC ####[facility] Ilcgvzlewj[address] [place], [place] [address]Dr. Slick Broderick Lymphocytes/100 WBC (Bld) 7.7 % Critically low 20.5-60.0 [facility] Comment on above: Performed By: #### C BC ####[facility] Njsrnowuan[address] [place], [place] [address]Dr. Slick Broderick MANUAL DIFF REQ NO Normal [facility] Comment on above: Performed By: #### C BC ####[facility] Bmgwsyabxy5915 [place] [id number]. Slick Davie MCH (RBC) [Entitic mass] 29.3 pg Normal 26.7-34.0 [facility] Comment on above: Performed By: #### C BC ####[facility] Ogamwjdhpd6188 [place] [id number]. Slick Davie MCHC (RBC) [Mass/Vol] 32.4 g/dL Normal 29.9-35.2 [facility] Comment on above: Performed By: #### C BC ####[facility] Clhzuxzxtq0969 [place] [address]Dr. Meaganwendie Broderick MCV (RBC) [Entitic vol] 90.5 fL Normal 81.0-99.0 [facility] Comment on above: Performed By: #### C BC ####[facility] Ithowuzkkf[address] [place], [place] [address]Dr. Slick Broderick MONO # 1.0 103/ul Critically high 0.3-0.[address] [facility] Comment on above: Performed By: #### C BC ####[facility] [address]fjxudnq[address] [place], [place] [address]Dr. Slick Broderick Monocytes/100 WBC (Bld) 9.6 % Normal 1.7-12.0 [facility] Comment on above: Performed By: #### C BC ####[facility] Xbipfnxvyq[address] [place], [place] [address]Dr. Slick Broderick NEUT # 8.6 103/ul Critically high 1.4-6.[address] [facility] Comment on above: Performed By: #### C BC ####[facility] Dupkbebsxx[address] [place], [place] [id number]. Slick Broderick Neutrophils/100 WBC (Bld) 81.7 % Critically high 43.0-75.0 [facility] Comment on above: Performed By: #### C BC ####[facility] Uuzjcepzwe22[address] [place] [address]Dr. Slick Broderick Platelet mean volume (Bld) [Entitic vol] 10.0 fL Normal 9.5-13.5 [facility] Comment on above: Performed By: #### C BC ####[facility] Lolilzvfus7151 [place] [phone]. Slick Broderick PLT 195 103/ul Normal 150-450 [facility] Comment on above: Performed By: #### C BC ####[facility] Tqq[address]oytj2637 [place], [place] [address]Vg. Slick Broderick RBC 2.42 106/ul Critically low 4.20-5.40 [facility] Comment on above: Performed By: #### C BC ####[facility] Ekjxlsvguc1742 [place] [phone]. Slick Broderick WBC 10.5 103/ul Normal 4.0-11.0 [facility] Comment on above: Performed By: #### C BC ####[facility] Kchktiiuyw[address] [place] [phone]. Slick Broderick CT HEAD WO CONon 04-23-2022 CT HEAD WO CON Normal [facility] CULTURE BLOODon 04-23-2022 Microscopic examination of blood, culture Culture Observations: NO GROWTH AT 5 DAYS. Normal [facility] Comment on above: Performed By: #### B LDCX2 ####[facility] Vgvwioksrd8645 [place] [id number]. Slick Broderick Microscopic examination of blood, culture Culture Observations: NO GROWTH AT 5 DAYS. Normal [facility] Comment on above: Performed By: #### B LDCX1 ####[facility] Fttonxcppv8492 [place] [id number]. Slick Broderick Covid-19 PCR (CVDTB)on 04-12 SARS-CoV-2 (COVID-19) RNA DONNIE+probe Ql (Unsp spec) Not detected Normal NOT DETECTED [facility] Comment on above: Result Comment: [...] for this test is supported by the [place] of Health and Human Service's declaration that [...] be used). Performed By: #### C VDTBH ####[facility] Exlxqdakhd9[address] [place] [address]Dr. Slick Broderick LACTATE/LACTIC ACIDon 2021 Lactate [Moles/Vol] 1.2 mmol/L Normal 0.4-1.9 [facility] Comment on above: Performed By: #### L ACT ####[facility] R[address]bxdzw[address] [place], [place] [address]Dr. Slick Broderick PROF 14(COMP METB)on 022 Albumin [Mass/Vol] 2.9 g/dL Critically low 3.4-5.0 [facility] Comment on above: Performed By: #### C MP, CMADM, BNP ####[facility] Qiwvidkxdc2471 [place] [address]Dr. Slick Broderick Albumin/Globulin [Mass ratio] 0.9 {ratio} Normal [facility] Comment on above: Performed By: #### C MP, CMADM, BNP ####[facility] Huwydzwuxs6622 [place] [address]Dr. Slick Broderick ALP [Catalytic activity/Vol] 88 U/L Normal 46-116 [facility] Comment on above: Performed By: #### C MP, CMADM, BNP ####[facility] Jeyigyhkhj1444 [place] [address]Dr. Slick Broderick ALT [Catalytic activity/Vol] 22 U/L Normal 14-59 [facility] Comment on above: Performed By: #### C MP, CMADM, BNP ####[facility] Xwkgcrjkxi6022 [place] [address]Dr. Slick Broderick Anion gap [Moles/Vol] 14.0 mmol/L Normal [facility] Comment on above: Performed By: #### C MP, CMADM, BNP ####[facility] Lcznwtpdcj6577 [place] [address]Dr. Slick Broderick AST [Catalytic activity/Vol] 26 U/L Normal 15-37 [facility] Comment on above: Performed By: #### C MP, CMADM, BNP ####[facility] [address]juunyd[address] [place], [place] [address]Dr. Slick Broderick Bilirubin [Mass/Vol] 0.5 mg/dL Normal 0.2-1.0 [facility] Comment on above: Performed By: #### C MP, CMADM, BNP ####[facility] [address]swspeelr[address] [place], [place] [address]Dr. Slick Broderick Calcium [Mass/Vol] 9.7 mg/dL Normal 8.5-10.1 [facility] Comment on above: Performed By: #### C MP, CMADM, BNP ####[facility] Yetflmtfng[address] [place], [place] [address]Dr. Slick Broderick Chloride [Moles/Vol] 105 mmol/L Normal 98-107 [facility] Comment on above: Performed By: #### C MP, CMADM, BNP ####[facility] Lkyaaopxgu7676 [place] [address]Dr. Slick Broderick CO2 [Moles/Vol] 27.0 mmol/L Normal 21.0-32.0 [facility] Comment on above: Performed By: #### C MP, CMADM, BNP ####[facility] Bsms[address]jst[address] [place], [place] [address]Dr. Slick Broderick Creatinine [Mass/Vol] 1.57 mg/dL Critically high 0.55-1.02 [facility] Comment on above: Performed By: #### C MP, CMADM, BNP ####[facility] Ltkvmkwube5641 [place] [address]Dr. Slick Broderick EGFR-AF SUDANESE 39 mL/min/1.73m2 Critically low >=60 [facility] Comment on above: Performed By: #### C MP, CMADM, BNP ####[facility] Itdxriqnnl8375 [place] [address]Dr. Slick Broderick EGFR-NON AF SUDANESE 32 mL/min/1.73m2 Critically low >=60 [facility] Comment on above: Performed By: #### C MP, CMADM, BNP ####[facility] Iqpizvkqyg3712 [place] [address]Dr. Slick Broderick Globulin (S) [Mass/Vol] 3.2 g/dL Normal [facility] Comment on above: Performed By: #### C MP, CMADM, BNP ####[facility] [address]rylsfys[address] [place], [place] [address]Dr. Slick Broderick Glucose [Mass/Vol] 128 mg/dL Critically high 74-106 [facility] Comment on above: Performed By: #### C MP, CMADM, BNP ####[facility] [address]posvz[address] [place], [place] [address]Dr. Slick Broderick Potassium [Moles/Vol] 4.0 mmol/L Normal 3.5-5.1 [facility] Comment on above: Performed By: #### C MP, CMADM, BNP ####[facility] Nxhsururnz[address] [place], [place] [address]Dr. Slick Broderick Protein [Mass/Vol] 6.1 g/dL Critically low 6.4-8.2 Th [facility] Comment on above: Performed By: #### C MP, CMADM, BNP ####[facility] [address]wxqulej[address] [place] [address]Dr. Slick Broderick Sodium [Moles/Vol] 142 mmol/L Normal 136-145 [facility] Comment on above: Performed By: #### C MP, CMADM, BNP ####[facility] Yliqkpigau[address] [place], [place] [address]Dr. Slick Broderick Urea nitrogen [Mass/Vol] 34.0 mg/dL Critically high 7.0-18.0 [facility] Comment on above: Performed By: #### C MP, CMADM, BNP ####[facility] Kzeagwfdoc4987 [place] [id number]. Slick Broderick Urea nitrogen/Creatinine [Mass ratio] 21.7 mg/mg Normal [facility] Comment on above: Performed By: #### C MP, CMADM, BNP ####[facility] Elirvipuna[address] [place] [address]Dr. Slick Davie PROTIMEon 04-23-2022 INR Coag (PPP) [Relative time] 1.10 {INR} Normal [facility] Comment on above: Performed By: #### P T, PTT ####[facility] Layogewguq[address] [place] [address]Dr. Slick Broderick INR GUIDELINES SEE BELOW Normal [facility] Comment on above: Result Comment: EDMUND RED INR: 2.0 - 3.0 CONDITIONS NOT LISTED BELOW 2.5 - 3.5 FOR PROSTHETIC HEART VALVE REPLACEMENT 2.5 - 3.5 RECURRENT THROMBOSIS Performed By: #### P T, PTT ####[facility] Exauhzbmws[address] [place], [place] [address]Dr. Slick Davie PT Coag (PPP) [Time] 11.8 s Critically high 9.0-11.6 [facility] Comment on above: Performed By: #### P T, PTT ####[facility] Nqcyvjfpul45[address] [place] [address]Dr. Slick Broderick PTTon 04-23-2022 aPTT Coag (Bld) [Time] 27.7 s Normal 22.3-36.2 [facility] Comment on above: Performed By: #### P T, PTT ####[facility] Hipfivqhwy47[address] [place], [place] [address]Dr. Slick Broderick TYPE AND SCREENon 04-23-2022 TYPE AND SCREEN Negative Normal [facility] Comment on above: Performed By: #### T NS ####[facility] Vzbyaddpem[address] [place], [place] [address]Dr. Slick Broderick XR CHEST 1 Von 04-23-2022 XR CHEST 1 V Normal [facility] CBC AUTO DIFFon 04-22-2022 BASO # 0.0 103/ul Normal 0.0-0.1 [facility] Comment on above: Performed By: #### C BC ####[facility] Wxehxdodts[address] [place] [address]Dr. Slick Davie Basophils/100 WBC (Bld) 0.3 % Normal 0.2-2.0 [facility] Comment on above: Performed By: #### C BC ####[facility] Fcsussuxdl[address] [place], [place] [address]Dr. Slick Broderick EO # 0.1 103/ul Normal 0.0-0.7 [facility] Comment on above: Performed By: #### C BC ####[facility] Gugdgroxix313[address] [place], [place] [address]Dr. Meaganwendie Broderick Eosinophils/100 WBC (Bld) 1.4 % Normal 0.9-7.0 [facility] Comment on above: Performed By: #### C BC ####[facility] Fcdmyniauy60[address] [place], [place] [address]Dr. Slick Broderick Erythrocyte distribution width (RBC) [Ratio] 13.8 % Normal 11.0-15.0 [facility] Comment on above: Performed By: #### C BC ####[facility] Bingoidbjn17[address] [place], [place] [address]Dr. Slick Davie Hematocrit (Bld) [Volume fraction] 27.4 % Critically low 36.0-48.0 [facility] Comment on above: Performed By: #### C BC ####[facility] Zvtngeqioo[address] [place], [place] [address]Dr. Slick Davie Hemoglobin (Bld) [Mass/Vol] 8.8 g/dL Critically low 12.0-16.0 [facility] Comment on above: Performed By: #### C BC ####[facility] Dvykdxorwp86[address] [place], [place] [address]Dr. Slick Broderick IG # 0.04 10e3/ul Critically high 0.00-0.03 [facility] Comment on above: Performed By: #### C BC ####[facility] Jxwtwwxqnl475[address] [place], [place] [address]Dr. Slick Broderick IG % 0.6 % Critically high 0.0-0.[address] [facility] Comment on above: Performed By: #### C BC ####[facility] Sphlbcyitt4293 [place] [address]DrEmma Broderick LYMPH # 0.7 103/ul Critically low 1.2-3.8 [facility] Comment on above: Performed By: #### C BC ####[facility] Uecwujvtlv0562 [place] [address]DrEmma Broderick Lymphocytes/100 WBC (Bld) 9.8 % Critically low 20.5-60.0 [facility] Comment on above: Performed By: #### C BC ####[facility] Poxehqvjqc[address] [place], [place] [address]DrEmma Broderick MANUAL DIFF REQ NO Normal [facility] Comment on above: Performed By: #### C BC ####[facility] Powfotobyb[address] [place], [place] [address]DrEmma Broderick MCH (RBC) [Entitic mass] 28.9 pg Normal 26.7-34.0 [facility] Comment on above: Performed By: #### C BC ####[facility] Limnygxjfx[address] [place], [place] [address]DrEmma Broderick MCHC (RBC) [Mass/Vol] 32.1 g/dL Normal 29.9-35.2 [facility] Comment on above: Performed By: #### C BC ####[facility] Qbwfkxpnxk[address] [place], [place] [id number] Broderick MCV (RBC) [Entitic vol] 90.1 fL Normal 81.0-99.0 [facility] Comment on above: Performed By: #### C BC ####[facility] Tawkchtzto[address] [place], [place] [address]DrEmma Broderick MONO # 0.6 103/ul Normal 0.3-0.8 [facility] Comment on above: Performed By: #### C BC ####[facility] Dcvudhxsrw1639[address] [place], [place] [address]DrEmma Broderick Monocytes/100 WBC (Bld) 7.6 % Normal 1.7-12.0 [facility] Comment on above: Performed By: #### C BC ####[facility] Osvfzgpmpp3182 [place] [address]Dr. Slick Broderick NEUT # 5.9 103/ul Normal 1.4-6.5 [facility] Comment on above: Performed By: #### C BC ####[facility] Hnwhahwcvu[address] [place] [address]Dr. Slick Broderick Neutrophils/100 WBC (Bld) 80.3 % Critically high 43.0-75.0 [facility] Comment on above: Performed By: #### C BC ####[facility] Fonugjtndd9836[address] [place], [place] [address]Dr. Slick Broderick Platelet mean volume (Bld) [Entitic vol] 9.5 fL Normal 9.5-13.5 [facility] Comment on above: Performed By: #### C BC ####[facility] Dufmtpbzug32[address] [place], [place] [address]Dr. Slick Broderick PLT 204 103/ul Normal 150-450 [facility] Comment on above: Performed By: #### C BC ####[facility] Tdzvekoyqe28[address] [place], [place] [address]Dr. Slick Broderick RBC 3.04 106/ul Critically low 4.20-5.[address] [facility] Comment on above: Performed By: #### C BC ####[facility] Vzzrjoqvbc91[address] [place], [place] [address]Dr. Slick Broderick WBC 7.3 103/ul Normal 4.0-11.0 [facility] Comment on above: Performed By: #### C BC ####[facility] Fxwyjneipv[address] [place], [place] [address]Dr. Slick Broderick BASO # 0.0 103/ul Normal 0.0-0.1 [facility] Comment on above: Performed By: #### C BC ####[facility] Fkttllsbia[address] [place], [place] [address]Dr. Slick Broderick Basophils/100 WBC (Bld) 0.5 % Normal 0.2-2.0 [facility] Comment on above: Performed By: #### C BC ####[facility] Dzfacvyfpy47[address] [place], [place] [address]Dr. Slikc Broderick EO # 0.6 103/ul Normal 0.0-0.7 [facility] Comment on above: Performed By: #### C BC ####[facility] Ncbicjkdxo[address] [place], [place] [address]Dr. Slick Broderick Eosinophils/100 WBC (Bld) 10.4 % Critically high 0.9-7.0 [facility] Comment on above: Performed By: #### C BC ####[facility] Bmhmhfkqds[address] [place], [place] [address]Dr. Slick Broderick Erythrocyte distribution width (RBC) [Ratio] 14.0 % Normal 11.0-15.0 [facility] Comment on above: Performed By: #### C BC ####[facility] Mykujbxtnd7[address] [place], [place] [address]Dr. Slick Broderick Hematocrit (Bld) [Volume fraction] 26.5 % Critically low 36.0-48.0 [facility] Comment on above: Performed By: #### C BC ####[facility] Xzgdqfnulj50[address] [place], [place] [address]DrEmma Broderick Hemoglobin (Bld) [Mass/Vol] 8.4 g/dL Critically low 12.0-16.0 [facility] Comment on above: Performed By: #### C BC ####[facility] Ibeiouwsoi94[address] [place], [place] [address]DrEmma Broderick IG # 0.02 10e3/ul Normal 0.00-0.03 [facility] Comment on above: Performed By: #### C BC ####[facility] Ztwjakytie[address] [place], [place] [address]DrEmma Broderick IG % 0.4 % Normal 0.0-0.5 [facility] Comment on above: Performed By: #### C BC ####[facility] Dfuqhdjkkk[address] [place], [place] [address]DrEmma Broderick LYMPH # 0.9 103/ul Critically low 1.2-3.8 [facility] Comment on above: Performed By: #### C BC ####[facility] Hltzazaikg9918 [place] [address]Dr. Slick Broderick Lymphocytes/100 WBC (Bld) 15.6 % Critically low 20.5-60.0 [facility] Comment on above: Performed By: #### C BC ####[facility] Puictcdrwo3741 [place] [address]Dr. Slick Broderick MANUAL DIFF REQ NO Normal [facility] Comment on above: Performed By: #### C BC ####[facility] Jaommuexot8057 [place] [address]Dr. Slick Broderick MCH (RBC) [Entitic mass] 29.2 pg Normal 26.7-34.0 [facility] Comment on above: Performed By: #### C BC ####[facility] Sjyxeiogps[address] [place], [place] [address]Dr. Slick Broderick MCHC (RBC) [Mass/Vol] 31.7 g/dL Normal 29.9-35.2 [facility] Comment on above: Performed By: #### C BC ####[facility] Owzpabbeir13[address] [place], [place] [address]DrEmma Broderick MCV (RBC) [Entitic vol] 92.0 fL Normal 81.0-99.0 [facility] Comment on above: Performed By: #### C BC ####[facility] Iwtgsqofav[address] [place], [place] [address]Dr. Slick Broderick MONO # 0.6 103/ul Normal 0.3-0.8 [facility] Comment on above: Performed By: #### C BC ####[facility] Urlzifcmdz23[address] [place], [place] [address]Dr. Slick Broderick Monocytes/100 WBC (Bld) 10.1 % Normal 1.7-12.0 [facility] Comment on above: Performed By: #### C BC ####[facility] Ycegipypof[address] [place], [place] [address]DrEmma Broderick NEUT # 3.5 103/ul Normal 1.4-6.5 [facility] Comment on above: Performed By: #### C BC ####[facility] Qaaqioalso2615 [place] [address]Dr. Slick Broderick Neutrophils/100 WBC (Bld) 63.0 % Normal 43.0-75.0 [facility] Comment on above: Performed By: #### C BC ####[facility] Qfxppelfdk5323 [place] [address]Dr. Slick Broderick Platelet mean volume (Bld) [Entitic vol] 10.0 fL Normal 9.5-13.5 [facility] Comment on above: Performed By: #### C BC ####[facility] Hrabnpbsvm9167 [place] [address]Dr. Meaganwendie Davie PLT 198 103/ul Normal 150-450 [facility] Comment on above: Performed By: #### C BC ####[facility] Rsamrsjrha9027 [place] [address]Dr. Slick Broderick RBC 2.88 106/ul Critically low 4.20-5.40 [facility] Comment on above: Performed By: #### C BC ####[facility] Ansaecuicw4952 [place] [address]Dr. Meaganwendie Davie WBC 5.6 103/ul Normal 4.0-11.0 [facility] Comment on above: Performed By: #### C BC ####[facility] Ywihmieugx[address] [place], [place] [address]Dr. Slick Broderick CT HEAD WO CONon 04-22-2022 CT HEAD WO CON Normal [facility] POINT OF CARE GLUCOSEon 04-12 Glucose [Mass/Vol] 110 mg/dL Critically high 74-106 T [facility] Comment on above: Performed By: #### P OCGLUC ####[facility] Blibmdfchp5389 [place] [address]DrEmma Broderick PROF 14(COMP METB)on 022 Albumin [Mass/Vol] 3.0 g/dL Critically low 3.4-5.0 [facility] Comment on above: Performed By: #### C MP ####[facility] Lshchpvscd9410 [place] [address]Dr. Slick Broderick Albumin/Globulin [Mass ratio] 0.9 {ratio} Normal [facility] Comment on above: Performed By: #### C MP ####[facility] Esaehemhks9253 [place] [phone]. Slick Broderick ALP [Catalytic activity/Vol] 93 U/L Normal 46-116 [facility] Comment on above: Performed By: #### C MP ####[facility] Ghkbychqgb7371 [place] [address]Dr. Slick Davie ALT [Catalytic activity/Vol] 22 U/L Normal 14-59 [facility] Comment on above: Performed By: #### C MP ####[facility] Qmxotwxuxg[address] [place], [place] [address]Dr. Meaganwendie Davie Anion gap [Moles/Vol] 8.9 mmol/L Normal [facility] Comment on above: Performed By: #### C MP ####[facility] Wuttteqgja04[address] [place], [place] [address]Dr. Slick Davie AST [Catalytic activity/Vol] 18 U/L Normal 15-37 [facility] Comment on above: Performed By: #### C MP ####[facility] Qoydwwhqhp[address] [place], [place] [address]Dr. Slick Davie Bilirubin [Mass/Vol] 0.3 mg/dL Normal 0.2-1.0 [facility] Comment on above: Performed By: #### C MP ####[facility] Qsgwokgazi145[address] [place], [place] [address]Dr. Slick Davie Calcium [Mass/Vol] 9.6 mg/dL Normal 8.5-10.1 [facility] Comment on above: Performed By: #### C MP ####[facility] Lkpjrzwdwq9[address] [place], [place] [address]Dr. Slick Broderick Chloride [Moles/Vol] 104 mmol/L Normal 98-107 [facility] Comment on above: Performed By: #### C MP ####[facility] Idwkowwtic3883 [place] [phone]. Slick Broderick CO2 [Moles/Vol] 30.8 mmol/L Normal 21.0-32.0 [facility] Comment on above: Performed By: #### C MP ####[facility] Slgizvedpk0838 [place] [phone]. Slick Broderick Creatinine [Mass/Vol] 1.73 mg/dL Critically high 0.55-1.02 [facility] Comment on above: Performed By: #### C MP ####[facility] Prfmlbrwhy8800 [place] [phone]. Slick Broderick EGFR-AF SUDANESE 35 mL/min/1.73m2 Critically low >=60 [facility] Comment on above: Performed By: #### C MP ####[facility] Xfyorwmyds0508 [place] [address]Dr. Slick Broderick EGFR-NON AF SUDANESE 29 mL/min/1.73m2 Critically low >=60 [facility] Comment on above: Performed By: #### C MP ####[facility] Fpjwykmpsl9788 [place] [id number]. Slick Broderick Globulin (S) [Mass/Vol] 3.4 g/dL Normal [facility] Comment on above: Performed By: #### C MP ####[facility] Uxwqiswtox8719 [place] [address]Dr. Slick Broderick Glucose [Mass/Vol] 94 mg/dL Normal 74-106 [facility] Comment on above: Performed By: #### C MP ####[facility] Ziehpxqmep2995 [place] [phone]. Slick Broderick Potassium [Moles/Vol] 4.7 mmol/L Normal 3.5-5.1 [facility] Comment on above: Performed By: #### C MP ####[facility] Suplgnrkkl9110 [place] [address]Dr. Slick Broderick Protein [Mass/Vol] 6.4 g/dL Normal 6.4-8.2 [facility] Comment on above: Performed By: #### C MP ####[facility] Mynotaxrsh3643 [place] [phone]. Slick Broderick Sodium [Moles/Vol] 139 mmol/L Normal 136-145 [facility] Comment on above: Performed By: #### C MP ####[facility] Yffubxvgaf6446 [place] [address]Dr. Slick Davie Urea nitrogen [Mass/Vol] 46.0 mg/dL Critically high 7.0-18.0 [facility] Comment on above: Performed By: #### C MP ####[facility] Qrkznseplb98[address] [place], [place] [address]Dr. Slick Broderick Urea nitrogen/Creatinine [Mass ratio] 26.6 mg/mg Normal [facility] Comment on above: Performed By: #### C MP ####[facility] Wuyztfvbva7[address] [place], [place] [address]Dr. Slick Broderick PROF CHEM 8 (BAS METB)on Anion gap [Moles/Vol] 8.6 mmol/L Normal [facility] Comment on above: Performed By: #### B MP ####[facility] Livwvmspvw89[address] [place], [place] [address]Dr. Slick Broderick Calcium [Mass/Vol] 9.9 mg/dL Normal 8.5-10.1 [facility] Comment on above: Performed By: #### B MP ####[facility] Bcotagaxuc[address] [place], [place] [address]Dr. Slick Broderick Chloride [Moles/Vol] 103 mmol/L Normal 98-107 [facility] Comment on above: Performed By: #### B MP ####[facility] Gnjhwgbeip3613 [place] [address]Dr. Slick Broderick CO2 [Moles/Vol] 29.5 mmol/L Normal 21.0-32.0 [facility] Comment on above: Performed By: #### B MP ####[facility] Riynppafnd[address] [place], [place] [address]Dr. Slick Broderick Creatinine [Mass/Vol] 1.62 mg/dL Critically high 0.55-1.02 [facility] Comment on above: Performed By: #### B MP ####[facility] Rrvpajwaut5056 [place] [phone]. Slick Broderick EGFR-AF SUDANESE 38 mL/min/1.73m2 Critically low >=60 [facility] Comment on above: Performed By: #### B MP ####[facility] Ovxxozzlzh2782 [place] [phone]. Slick Davie EGFR-NON AF SUDANESE 31 mL/min/1.73m2 Critically low >=60 [facility] Comment on above: Performed By: #### B MP ####[facility] Gugrlnyuae3695 [place] [address]Dr. Slick Broderick Glucose [Mass/Vol] 125 mg/dL Critically high 74-106 T [facility] Comment on above: Performed By: #### B MP ####[facility] Exxyvxbvcv1748 [place] [address]Dr. Slick Broderick Potassium [Moles/Vol] 4.1 mmol/L Normal 3.5-5.1 [facility] Comment on above: Performed By: #### B MP ####[facility] Jnbeplfdnn76[address] [place], [place] [address]Dr. Slick Broderick Sodium [Moles/Vol] 137 mmol/L Normal 136-145 [facility] Comment on above: Performed By: #### B MP ####[facility] Ivivbydame1592 [place] [address]Dr. Slick Broderick Urea nitrogen [Mass/Vol] 41.0 mg/dL Critically high 7.0-18.0 [facility] Comment on above: Performed By: #### B MP ####[facility] Raekrvjzln0494 [place] [address]Dr. Slick Broderick Urea nitrogen/Creatinine [Mass ratio] 25.3 mg/mg Normal [facility] Comment on above: Performed By: #### B MP ####[facility] Urgjvyopmi0780 [place] [address]Dr. Slick Broderick PROTIMEon 04-22-2022 INR Coag (PPP) [Relative time] 1.08 {INR} Normal [facility] Comment on above: Performed By: #### P T, PTT ####[facility] Wwylpzoogx[address] [place], [place] [address]Dr. Slick Broderick INR GUIDELINES SEE BELOW Normal [facility] Comment on above: Result Comment: EDMUND RED INR: 2.0 - 3.0 CONDITIONS NOT LISTED BELOW 2.5 - 3.5 FOR PROSTHETIC HEART VALVE REPLACEMENT 2.5 - 3.5 RECURRENT THROMBOSIS Performed By: #### P T, PTT ####[facility] Suycjqbiwn726[address] [place], [place] [address]Dr. Slick Broderick PT Coag (PPP) [Time] 11.6 s Normal 9.0-11.6 [facility] Comment on above: Performed By: #### P T, PTT ####[facility] Igcxcgfykq[address] [place], [place] [address]Dr. Slick Broderick PTTon 04-22-2022 aPTT Coag (Bld) [Time] 30.7 s Normal 22.3-36.2 [facility] Comment on above: Performed By: #### P T, PTT ####[facility] Gjaaumqrxq[address] [place], [place] [address]Dr. Slick Broderick XR TIB_FIB RT 2Von 2 XR TIB_FIB RT 2V Normal [facility] CBC AUTO DIFFon 04-21-2022 BASO # 0.0 103/ul Normal 0.0-0.1 [facility] Comment on above: Performed By: #### C BC ####[facility] Ujuxghyrio12[address] [place], [place] [address]Dr. Slick Broderick Basophils/100 WBC (Bld) 0.3 % Normal 0.2-2.0 [facility] Comment on above: Performed By: #### C BC ####[facility] Jmrmucxiqk49[address] [place], [place] [address]Dr. Slick Broderick EO # 0.6 103/ul Normal 0.0-0.7 [facility] Comment on above: Performed By: #### C BC ####[facility] Tkveibqzho8[address] [place], [place] [address]Dr. Slick Broderick Eosinophils/100 WBC (Bld) 10.2 % Critically high 0.9-7.0 [facility] Comment on above: Performed By: #### C BC ####[facility] Cijjtwephp0098 [place] [address]Dr. Slick Broderick Erythrocyte distribution width (RBC) [Ratio] 14.2 % Normal 11.0-15.0 [facility] Comment on above: Performed By: #### C BC ####[facility] Yzvuanivaq30[address] [place], [place] [address]Dr. Slick Broderick Hematocrit (Bld) [Volume fraction] 25.5 % Critically low 36.0-48.0 [facility] Comment on above: Performed By: #### C BC ####[facility] Qihtjegryi14[address] [place], [place] [address]Dr. Slick Broderick Hemoglobin (Bld) [Mass/Vol] 8.1 g/dL Critically low 12.0-16.0 [facility] Comment on above: Performed By: #### C BC ####[facility] Gdkwsgrril7[address] [place], [place] [address]Dr. Slick Broderick IG # 0.02 10e3/ul Normal 0.00-0.03 [facility] Comment on above: Performed By: #### C BC ####[facility] Gukkwqcwbo92[address] [place], [place] [address]Dr. Slick Broderick IG % 0.3 % Normal 0.0-0.5 [facility] Comment on above: Performed By: #### C BC ####[facility] Nklpdyyetf64[address] [place], [place] [address]Dr. Slick Broderick LYMPH # 0.8 103/ul Critically low 1.2-3.8 [facility] Comment on above: Performed By: #### C BC ####[facility] Zabcnvsbah[address] [place], [place] [address]Dr. Slick Broderick Lymphocytes/100 WBC (Bld) 13.2 % Critically low 20.5-60.0 [facility] Comment on above: Performed By: #### C BC ####[facility] R[address]akgcbee[address] [place], [place] [id number]. Slick Broderick MANUAL DIFF REQ NO Normal [facility] Comment on above: Performed By: #### C BC ####[facility] Aaaftzgptm7831 [place] [address]Dr. Slick Davie MCH (RBC) [Entitic mass] 29.5 pg Normal 26.7-34.0 [facility] Comment on above: Performed By: #### C BC ####[facility] [address]qhodlqqwb[address] [place], [place] [address]Dr. Slick Davie MCHC (RBC) [Mass/Vol] 31.8 g/dL Normal 29.9-35.2 [facility] Comment on above: Performed By: #### C BC ####[facility] Ewruolqoxb[address] [place], [place] [address]Dr. Slick Broderick MCV (RBC) [Entitic vol] 92.7 fL Normal 81.0-99.0 [facility] Comment on above: Performed By: #### C BC ####[facility] [address]fblseeset[address] [place], [place] [address]Dr. Slick Broderick MONO # 0.6 103/ul Normal 0.3-0.8 [facility] Comment on above: Performed By: #### C BC ####[facility] [address]byyqfk[address] [place], [place] [address]Dr. Slick Broderick Monocytes/100 WBC (Bld) 9.2 % Normal 1.7-12.0 [facility] Comment on above: Performed By: #### C BC ####[facility] Zbcmfcuhri[address] [place], [place] [address]Dr. Slick Broderick NEUT # 4.1 103/ul Normal 1.4-6.5 [facility] Comment on above: Performed By: #### C BC ####[facility] Vshgefqked67[address] [place], [place] [address]Dr. Slick Broderick Neutrophils/100 WBC (Bld) 66.8 % Normal 43.0-75.0 [facility] Comment on above: Performed By: #### C BC ####[facility] Coksfbxzwn23[address] [place], [place] [address]Dr. Slick Broderick Platelet mean volume (Bld) [Entitic vol] 9.5 fL Normal 9.5-13.5 [facility] Comment on above: Performed By: #### C BC ####[facility] Pimmdrkrwa[address] [place] [address]Dr. Slick Broderick PLT 189 103/ul Normal 150-450 [facility] Comment on above: Performed By: #### C BC ####[facility] Wbuwsstygk3547 [place] [address]Dr. Slick Broderick RBC 2.75 106/ul Critically low 4.20-5.[address] [facility] Comment on above: Performed By: #### C BC ####[facility] Krsvdbdduq064[address] [place], [place] [address]Dr. Slick Broderick WBC 6.2 103/ul Normal 4.0-11.0 [facility] Comment on above: Performed By: #### C BC ####[facility] Ulufiqycdj44[address] [place], [place] [address]Dr. Slick Broderick BASO # 0.1 103/ul Normal 0.0-0.1 [facility] Comment on above: Performed By: #### C BC ####[facility] Prxlehwsit7818[address] [place], [place] [address]Dr. Slick Davie Basophils/100 WBC (Bld) 0.8 % Normal 0.2-2.0 [facility] Comment on above: Performed By: #### C BC ####[facility] Ekbsvuyzyn5422 [place] [address]Dr. Slick Broderick EO # 0.8 103/ul Critically high 0.0-0.[address] [facility] Comment on above: Performed By: #### C BC ####[facility] Mfmgcyjgrw9[address] [place], [place] [address]Dr. Slick Davie Eosinophils/100 WBC (Bld) 11.7 % Critically high 0.9-7.0 [facility] Comment on above: Performed By: #### C BC ####[facility] Oneehlcubl648[address] [place], [place] [address]Dr. Slick Davie Erythrocyte distribution width (RBC) [Ratio] 14.1 % Normal 11.0-15.0 [facility] Comment on above: Performed By: #### C BC ####[facility] Trtyteohhu7963 [place] [address]Dr. Slick Broderick Hematocrit (Bld) [Volume fraction] 27.3 % Critically low 36.0-48.0 [facility] Comment on above: Performed By: #### C BC ####[facility] Zozthhzdue363[address] [place], [place] [address]Dr. Slick Broderick Hemoglobin (Bld) [Mass/Vol] 8.4 g/dL Critically low 12.0-16.0 [facility] Comment on above: Performed By: #### C BC ####[facility] Umiexeeeok76[address] [place], [place] [address]Dr. Slick Broderick IG # 0.02 10e3/ul Normal 0.00-0.03 [facility] Comment on above: Performed By: #### C BC ####[facility] Dfrxdhrngn9630[address] [place], [place] [address]Dr. Meaganwendie Broderick IG % 0.3 % Normal 0.0-0.5 [facility] Comment on above: Performed By: #### C BC ####[facility] Evxmmloinu3625[address] [place], [place] [address]DrEmma Broderick LYMPH # 1.0 103/ul Critically low 1.2-3.8 [facility] Comment on above: Performed By: #### C BC ####[facility] Qpgjwlnbna245[address] [place], [place] [address]DrEmma Meaganwendie Broderick Lymphocytes/100 WBC (Bld) 14.5 % Critically low 20.5-60.0 [facility] Comment on above: Performed By: #### C BC ####[facility] Czczkdobte[address] [place], [place] [address]DrEmma Broderick MANUAL DIFF REQ NO Normal [facility] Comment on above: Performed By: #### C BC ####[facility] Unftekkkry9033[address] [place], [place] [address]Dr. Slick Broderick MCH (RBC) [Entitic mass] 29.2 pg Normal 26.7-34.0 [facility] Comment on above: Performed By: #### C BC ####[facility] Devmwjlita620[address] [place], [place] [address]Dr. Slick Broderick MCHC (RBC) [Mass/Vol] 30.8 g/dL Normal 29.9-35.2 [facility] Comment on above: Performed By: #### C BC ####[facility] Enmskpygkk4532[address] [place], [place] [address]Dr. Meaganwendie Broderick MCV (RBC) [Entitic vol] 94.8 fL Normal 81.0-99.0 [facility] Comment on above: Performed By: #### C BC ####[facility] Ddwixwngkg5615[address] [place], [place] [address]Dr. Slick Broderick MONO # 0.6 103/ul Normal 0.3-0.8 [facility] Comment on above: Performed By: #### C BC ####[facility] Tjetawixbv849[address] [place], [place] [address]Dr. Slick Broderick Monocytes/100 WBC (Bld) 9.7 % Normal 1.7-12.0 [facility] Comment on above: Performed By: #### C BC ####[facility] Fkdwemiyxg957[address] [place], [place] [address]Dr. Meaganwendie Davie NEUT # 4.2 103/ul Normal 1.4-6.5 [facility] Comment on above: Performed By: #### C BC ####[facility] Lnaqtcljjb529[address] [place], [place] [address]Dr. Slick Broderick Neutrophils/100 WBC (Bld) 63.0 % Normal 43.0-75.0 [facility] Comment on above: Performed By: #### C BC ####[facility] Sprglxdozx199[address] [place], [place] [address]Dr. Slick Broderick Platelet mean volume (Bld) [Entitic vol] 10.0 fL Normal 9.5-13.5 [facility] Comment on above: Performed By: #### C BC ####[facility] Fwuk[address]lo[address] [place] [id number]. Slick Broderick PLT 210 103/ul Normal 150-450 [facility] Comment on above: Performed By: #### C BC ####[facility] Dgrkxcpbzy6216 [place] [id number]. Slick Broderick RBC 2.88 106/ul Critically low 4.20-5.40 [facility] Comment on above: Performed By: #### C BC ####[facility] Eznnujubud6705 [place] [phone]. Slick Broderick WBC 6.6 103/ul Normal 4.0-11.0 [facility] Comment on above: Performed By: #### C BC ####[facility] Civvkzjoxm8432[address] [place], [place] [address]Dr. Slick Broderick CRPon 04-21-2022 CRP 0.4 mg/dL Normal <=1.0 [facility] Comment on above: Performed By: #### H STROPN, CRP, CMP ####[facility] Lneagltbto565[address] [place], [place] [address]Dr. Slick Broderick CT HEAD WO CONon 04-21-2022 CT HEAD WO CON Normal [facility] CULTURE BLOODon 04-21-2022 Microscopic examination of blood, culture Culture Observations: NO GROWTH AT 5 DAYS. Normal [facility] Comment on above: Performed By: #### B LDCX2 ####[facility] Wwkrkzbjsp24[address] [place], [place] [id number]. Slick Broderick Microscopic examination of blood, culture Culture Observations: NO GROWTH AT 5 DAYS. Normal [facility] Comment on above: Performed By: #### B LDCX1 ####[facility] Jiltpmeykp2245 [place] [phone]. Slick Broderick CULTURE URINEon 04-21-2022 CULTURE URINE Culture Observations : MODERATE GROWTH OF MIXED GENITAL OMAR. NO POTENTIAL PATHOGENS SEEN. Normal [facility] Comment on above: Performed By: #### U RCX ####[facility] Roqxpkuyxc9724 [place] [address]Dr. Slick Broderick Covid-19 PCR (CVDTB)on 04-12 SARS-CoV-2 (COVID-19) RNA DONNIE+probe Ql (Unsp spec) Not detected Normal NOT DETECTED [facility] Comment on above: Result Comment: [...] for this test is supported by the [place] of Health and Human Service's declaration that [...] be used). Performed By: #### C VDTB ####[facility] Ulzprimoki7[address] [place], [place] [address]Dr. Slick Broderick ER URINE PROFILEon 2 Bilirubin Ql (U) Negative Normal NEGATIVE [facility] Comment on above: Performed By: #### JANIS PEDRO ####[facility] Gszjflxcsd54[address] [place], [place] [address]Dr. Slick Broderick Clarity (U) CLEAR Normal CLEAR [facility] Comment on above: Performed By: #### JANIS PEDRO ####[facility] Agobapwphy700[address] [place], [place] [address]Dr. Slick Broderick Color (U) LT. YELLOW Normal YELLOW [facility] Comment on above: Performed By: #### JANIS PEDRO ####[facility] Mgcqcrfrnr22[address] [place], [place] [address]Dr. Slick Broderick ERUAHD A micrscopic examination will be performed if indicated. Normal [facility] Comment on above: Performed By: #### JANIS PEDRO ####[facility] Ueilrbqyhc6401 [place] [address]Dr. Slick Broderick Glucose Ql (U) Negative Normal NEGATIVE [facility] Comment on above: Performed By: #### AMBERLY PEDRORO ####[facility] Ppzsmzitja6623[address] [place], [place] [address]Dr. Slick Broderick Hemoglobin Ql (U) Negative Normal NEGATIVE [facility] Comment on above: Performed By: #### AMOS PEDROICRO ####[facility] Xlidhrzncf916[address] [place], [place] [address]Dr. Slick Broderick Ketones Ql (U) Negative Normal NEGATIVE [facility] Comment on above: Performed By: #### AMOS PEDROICRO ####[facility] Acpbixcztm126[address] [place], [place] [address]Dr. Slick Broderick LEUKOCYTES TRACE Abnormal NEGATIVE [facility] Comment on above: Performed By: #### AMBERLY PEDRORO ####[facility] Uqmmpczaiw[address] [place], [place] [address]Dr. Meaganwendie Davie Nitrite Ql (U) Negative Normal NEGATIVE [facility] Comment on above: Performed By: #### AMOS PEDROICRO ####[facility] Fdwalwgnfl15[address] [place], [place] [address]Dr. Slick Broderick pH (U) 5.5 [pH] Normal 5-9 [facility] Comment on above: Performed By: #### AMOS PEDROICRO ####[facility] Rxoofjhhlz8439[address] [place], [place] [address]Dr. Slick Broderick SPEC GRAVITY 1.010 Normal 1.005-<=1.[address] [facility] Comment on above: Performed By: #### AMOS PEDROICRO ####[facility] Gopmcymmwx5036[address] [place], [place] [address]Dr. Slick Broderick UA PROTEIN Negative Normal NEGATIVE/ TRACE [facility] Comment on above: Performed By: #### AMOS PEDROICRO ####[facility] Kdqhdzfwwc690[address] [place], [place] [address]Dr. Slick Broderick UR MICRO IND INDICATED Normal [facility] Comment on above: Performed By: #### E AMBERLY PLEITEZRO ####[facility] Lvbplqzuom8217 [place] [address]Dr. Slick Broderick Urobilinogen Qn (U) 0.2 {Hiren'U}/dL Normal 0.2 - 1. 0 [facility] Comment on above: Performed By: #### E AMBERLY PLEITEZRO ####[facility] Dklvfjcrwk0942 [place] [address]Dr. Slick Broderick LACTATE/LACTIC ACIDon 2021 Lactate [Moles/Vol] 1.0 mmol/L Normal 0.4-1.9 [facility] Comment on above: Performed By: #### L ACT ####[facility] Iethfhxsen2948[address] [place], [place] [address]Dr. Slick Broderick POINT OF CARE GLUCOSEon 04-12 Glucose [Mass/Vol] 109 mg/dL Critically high 74-106 [facility] Comment on above: Performed By: #### P OCGLUC ####[facility] Wzqomhkadi6964[address] [place], [place] [address]Dr. Slick Broderick Glucose [Mass/Vol] 93 mg/dL Normal 74-106 [facility] Comment on above: Performed By: #### P OCGLUC ####[facility] Ahbvgnwvnj[address] [place], [place] [address]Dr. Slick Broderick Glucose [Mass/Vol] 140 mg/dL Critically high 74-106 [facility] Comment on above: Performed By: #### P OCGLUC ####[facility] Liopdrbrxj3757 [place] [address]Dr. Slick Broderick Glucose [Mass/Vol] 95 mg/dL Normal 74-106 [facility] Comment on above: Performed By: #### P OCGLUC ####[facility] Oabdltthjp189[address] [place], [place] [address]Dr. Slick Broderick PROF 14(COMP METB)on 022 Albumin [Mass/Vol] 2.9 g/dL Critically low 3.4-5.0 [facility] Comment on above: Performed By: #### C MP ####[facility] Vlavpzotno2062 [place] [address]Dr. Slick Broderick Albumin/Globulin [Mass ratio] 0.9 {ratio} Normal [facility] Comment on above: Performed By: #### C MP ####[facility] Aabhkbagej7017 [place] [address]Dr. Slick Davie ALP [Catalytic activity/Vol] 87 U/L Normal 46-116 [facility] Comment on above: Performed By: #### C MP ####[facility] Wehwifwodd2408 [place] [address]Dr. Slick Davie ALT [Catalytic activity/Vol] 21 U/L Normal 14-59 [facility] Comment on above: Performed By: #### C MP ####[facility] Ivtufntxgz138[address] [place], [place] [address]Dr. Slick Broderick Anion gap [Moles/Vol] 7.7 mmol/L Normal [facility] Comment on above: Performed By: #### C MP ####[facility] Kvkdeocsuw540[address] [place], [place] [address]Dr. Slick Davie AST [Catalytic activity/Vol] 11 U/L Critically low 15-37 [facility] Comment on above: Performed By: #### C MP ####[facility] Nomvityoqb8734[address] [place], [place] [address]Dr. Slick Broderick Bilirubin [Mass/Vol] 0.2 mg/dL Normal 0.2-1.0 [facility] Comment on above: Performed By: #### C MP ####[facility] Ourufgomxu[address] [place], [place] [address]Dr. Slick Broderick Calcium [Mass/Vol] 9.4 mg/dL Normal 8.5-10.1 [facility] Comment on above: Performed By: #### C MP ####[facility] Rhsvwjfgxp5414[address] [place], [place] [address]Dr. Slick Broderick Chloride [Moles/Vol] 107 mmol/L Normal 98-107 [facility] Comment on above: Performed By: #### C MP ####[facility] Vnnjdjzcsm[address] [place], [place] [address]Dr. Slick Broderick CO2 [Moles/Vol] 31.2 mmol/L Normal 21.0-32.0 [facility] Comment on above: Performed By: #### C MP ####[facility] Gedpjzevth5[address] [place] [address]Dr. Slick Broderick Creatinine [Mass/Vol] 2.06 mg/dL Critically high 0.55-1.02 [facility] Comment on above: Performed By: #### C MP ####[facility] Lhzkoczsfk5698 [place] [address]Dr. Slick Broderick EGFR-AF SUDANESE 29 mL/min/1.73m2 Critically low >=60 [facility] Comment on above: Performed By: #### C MP ####[facility] Fbxddmwcnh67[address] [place], [place] [address]Dr. Meaganwendie Davie EGFR-NON AF SUDANESE 24 mL/min/1.73m2 Critically low >=60 [facility] Comment on above: Performed By: #### C MP ####[facility] Xcsxnozkqe75[address] [place], [place] [address]Dr. Slick Davie Globulin (S) [Mass/Vol] 3.4 g/dL Normal [facility] Comment on above: Performed By: #### C MP ####[facility] Oaxmbndocp[address] [place], [place] [address]Dr. Slick Davie Glucose [Mass/Vol] 93 mg/dL Normal 74-106 [facility] Comment on above: Performed By: #### C MP ####[facility] Vuoddzwmsa424[address] [place], [place] [address]Dr. Slick Davie Potassium [Moles/Vol] 4.9 mmol/L Normal 3.5-5.1 [facility] Comment on above: Performed By: #### C MP ####[facility] Vgatzkcuey[address] [place], [place] [address]Dr. Slick Davie Protein [Mass/Vol] 6.3 g/dL Critically low 6.4-8.2 [facility] Comment on above: Performed By: #### C MP ####[facility] Ursqvappxc4564[address] [place], [place] [id number]. Slick Broderick Sodium [Moles/Vol] 141 mmol/L Normal 136-145 [facility] Comment on above: Performed By: #### C MP ####[facility] Jdcnfphlbg0986 [place] [address]Dr. Slick Broderick Urea nitrogen [Mass/Vol] 63.0 mg/dL Critically high 7.0-18.0 [facility] Comment on above: Performed By: #### C MP ####[facility] Yzeuqswtlu1945 [place] [address]Dr. Slick Broderick Urea nitrogen/Creatinine [Mass ratio] 30.6 mg/mg Normal [facility] Comment on above: Performed By: #### C MP ####[facility] Ucwcfzzvyy9565 [place] [address]Dr. Slick Broderick Albumin [Mass/Vol] 3.1 g/dL Critically low 3.4-5.0 [facility] Comment on above: Performed By: #### H STROPN, CRP, CMP ####[facility] Eclsqukomk8565 [place] [address]Dr. Slick Broderick Albumin/Globulin [Mass ratio] 0.9 {ratio} Normal [facility] Comment on above: Performed By: #### H STROPN, CRP, CMP ####[facility] Qokqsuoehl0845 [place] [address]Dr. Slick Broderick ALP [Catalytic activity/Vol] 98 U/L Normal 46-116 [facility] Comment on above: Performed By: #### H STROPN, CRP, CMP ####[facility] Rxupoaksgx0190 [place] [address]Dr. Slick Broderick ALT [Catalytic activity/Vol] 17 U/L Normal 14-59 [facility] Comment on above: Performed By: #### H STROPN, CRP, CMP ####[facility] Kqnlpwhsnu4337 [place] [address]Dr. Slick Broderick Anion gap [Moles/Vol] 4.3 mmol/L Normal [facility] Comment on above: Performed By: #### H STROPN, CRP, CMP ####[facility] Leiuyngxzf8773 [place] [address]Dr. Slick Broderick AST [Catalytic activity/Vol] 11 U/L Critically low 15-37 [facility] Comment on above: Performed By: #### H STROPN, CRP, CMP ####[facility] Xtfmhitryh1077 [place] [address]Dr. Slick Broderick Bilirubin [Mass/Vol] 0.2 mg/dL Normal 0.2-1.0 [facility] Comment on above: Performed By: #### H STROPN, CRP, CMP ####[facility] Zfiwqecyyk4992 [place] [address]Dr. Slick Broderick Calcium [Mass/Vol] 9.6 mg/dL Normal 8.5-10.1 [facility] Comment on above: Performed By: #### H STROPN, CRP, CMP ####[facility] Subhleupmb16[address] [place], [place] [address]Dr. Slick Broderick Chloride [Moles/Vol] 104 mmol/L Normal 98-107 [facility] Comment on above: Performed By: #### H STROPN, CRP, CMP ####[facility] Pqsgntpokc[address] [place], [place] [address]Dr. Slick Broderick CO2 [Moles/Vol] 32.3 mmol/L Critically high 21.0-32.0 [facility] Comment on above: Performed By: #### H STROPN, CRP, CMP ####[facility] Jfrqilauvk[address] [place], [place] [address]Dr. Slick Broderick Creatinine [Mass/Vol] 2.49 mg/dL Critically high 0.55-1.02 [facility] Comment on above: Performed By: #### H STROPN, CRP, CMP ####[facility] Fqfzqtyocr8616 [place] [address]Dr. Slick Broderick EGFR-AF SUDANESE 23 mL/min/1.73m2 Critically low >=60 [facility] Comment on above: Performed By: #### H STROPN, CRP, CMP ####[facility] Jtmdqoausi5147 [place] [address]Dr. Slick Broderick EGFR-NON AF SUDANESE 19 mL/min/1.73m2 Critically low >=60 [facility] Comment on above: Performed By: #### H STROPN, CRP, CMP ####[facility] Yyccdmjkpq6351 [place] [address]Dr. Slikc Broderick Globulin (S) [Mass/Vol] 3.5 g/dL Normal [facility] Comment on above: Performed By: #### H STROPN, CRP, CMP ####[facility] Pqvswaqjmw5814 [place] [address]Dr. Slick Broderick Glucose [Mass/Vol] 112 mg/dL Critically high 74-106 [facility] Comment on above: Performed By: #### H STROPN, CRP, CMP ####[facility] Wbmrvuhtrm1498 [place] [address]Dr. Slick Broderick Potassium [Moles/Vol] 4.6 mmol/L Normal 3.5-5.1 [facility] Comment on above: Performed By: #### H STROPN, CRP, CMP ####[facility] Kxxvaxsmkl[address] [place], [place] [address]Dr. Slick Broderick Protein [Mass/Vol] 6.6 g/dL Normal 6.4-8.2 [facility] Comment on above: Performed By: #### H STROPN, CRP, CMP ####[facility] Uzbvsxgtag3221 [place] [address]Dr. Slick Broderick Sodium [Moles/Vol] 136 mmol/L Normal 136-145 [facility] Comment on above: Performed By: #### H STROPN, CRP, CMP ####[facility] Evdunjswnw1723 [place] [address]Dr. Slick Broderick Urea nitrogen [Mass/Vol] 74.0 mg/dL Critically high 7.0-18.0 [facility] Comment on above: Performed By: #### H STROPN, CRP, CMP ####[facility] Spmoyujxle2317 [place] [address]Dr. Slick Broderick Urea nitrogen/Creatinine [Mass ratio] 29.7 mg/mg Normal [facility] Comment on above: Performed By: #### H STROPN, CRP, CMP ####[facility] Javgntdejs3866 [place] [address]Dr. Slick Broderick SED RATE WESTERGRENon 2021 SED RATE 32 mm/hr Critically high <=[address] [facility] Comment on above: Performed By: #### S EDR ####[facility] Nkiewuswir8715 [place] [address]Dr. Slick Broderick TROPONIN, HIGH SENSITIVITYon 04-21-2022 HSTROP 8.6 pg/mL Normal 4.0-51.3 [facility] Comment on above: Result Comment: CUT- OFF POINTS HAVE BEEN ESTABLISHED BASED ON THE FOURTH UNIVERSAL DEFINITIONS OF MYOCARDIALINFARCTION. THE UPPER REFERENCE LIMIT (URL) OF TROPONIN, DEFINED THE 99TH PERCENTILE OFcTnI DISTRIBUTION IN A REFERENCE POPULATION, HAS BEEN CONFIRMED THE DECISION THRESHOLDFOR [place] DIAGNOSIS. Performed By: #### H STROPN, CRP, CMP ####[facility] Vdvjeunbuc8315 [place] [address]Dr. Slick Broderick URINE MICROSCOPIC ONLYon BACTERIA TRACE Abnormal NONE SEEN [facility] Comment on above: Performed By: #### Dennise PLEITEZ UMICRO ####[facility] Binxytdhtg2034 [place] [address]Dr. Slick Broderick Bacteria identified Cx Nom (U) INDICATED Normal [facility] Comment on above: Performed By: #### Dennise PLEITEZ UMICRO ####[facility] Bjvhbylnwf4193 [place] [address]Dr. Slick Broderick CAST NONE SEEN Normal NONE SEEN [facility] Comment on above: Performed By: #### Dennise RUFrench UMICRO ####[facility] Ruhutoaade2268 [place] [address]Dr. Slick Broderick Crystals LM Nom (Urine sed) NONE SEEN Normal NONE SEEN [facility] Comment on above: Performed By: #### E RUR UMICRO ####[facility] Vgnubbcpyp0238 [place] [address]Dr. Slick Broderick Epithelial cells LM Ql (Urine sed) FEW Abnormal NONE SEEN /RARE [facility] Comment on above: Performed By: #### JANIS PEDRO ####[facility] Ptgjarhyzr4301 [place] [id number]. Slick Broderick MUCOUS NONE SEEN Normal NONE SEEN [facility] Comment on above: Performed By: #### JANIS PEDRO ####[facility] Wlptbwmpvg4467 [place] [id number]. Slick Broderick RBC 0-2 Normal 0-2 [facility] Comment on above: Performed By: #### JANIS PEDRO ####[facility] Gvvxvftfng3568 [place] [address]Dr. Slick Davie WBC 5-10 Abnormal NONE SEEN [facility] Comment on above: Performed By: #### JANIS PEDRO ####[facility] Bxzrdpikiq2684 [place] [address]Dr. Meaganwendie Broderick XR CHEST 1 Von 04-21-2022 XR CHEST 1 V Normal [facility] CBC AUTO DIFFon 03-29-2022 BASO # 0.1 103/ul Normal 0.0-0.1 [facility] Comment on above: Performed By: #### C BC ####[facility] [address]twhjjmj[address] [place], [place] [address]Dr. Slick Davie Basophils/100 WBC (Bld) 0.7 % Normal 0.2-2.0 [facility] Comment on above: Performed By: #### C BC ####[facility] Lttjergyms3394 [place] [address]Dr. Slick Davie EO # 0.4 103/ul Normal 0.0-0.7 [facility] Comment on above: Performed By: #### C BC ####[facility] Znmffhoovt[address] [place], [place] [address]Dr. Slick Davie Eosinophils/100 WBC (Bld) 4.8 % Normal 0.9-7.0 [facility] Comment on above: Performed By: #### C BC ####[facility] Ivpdadhbue99[address] [place], [place] [address]Dr. Slick Davie Erythrocyte distribution width (RBC) [Ratio] 13.9 % Normal 11.0-15.0 [facility] Comment on above: Performed By: #### C BC ####[facility] Aikbpgbvuw2623 [place] [address]DrEmma Broderick Hematocrit (Bld) [Volume fraction] 28.0 % Critically low 36.0-48.0 [facility] Comment on above: Performed By: #### C BC ####[facility] Hjmygrosth2589 [place] [address]DrEmma Broderick Hemoglobin (Bld) [Mass/Vol] 8.8 g/dL Critically low 12.0-16.0 [facility] Comment on above: Performed By: #### C BC ####[facility] Ceslovkjkr[address] [place], [place] [address]DrEmma Broderick IG # 0.05 10e3/ul Critically high 0.00-0.03 [facility] Comment on above: Performed By: #### C BC ####[facility] Pkuojkswfp612[address] [place], [place] [address]DrEmma Broderick IG % 0.7 % Critically high 0.0-0.5 [facility] Comment on above: Performed By: #### C BC ####[facility] Lcxmukbcgg754[address] [place], [place] [address]DrEmma Broderick LYMPH # 1.0 103/ul Critically low 1.2-3.8 [facility] Comment on above: Performed By: #### C BC ####[facility] Fxpqualpnq[address] [place], [place] [address]DrEmma Broderick Lymphocytes/100 WBC (Bld) 13.0 % Critically low 20.5-60.0 [facility] Comment on above: Performed By: #### C BC ####[facility] Wdmbssqobs8[address] [place], [place] [address]DrEmma Broderick MANUAL DIFF REQ NO Normal [facility] Comment on above: Performed By: #### C BC ####[facility] Abtkbpzilr334[address] [place], [place] [address]DrEmma Broderick MCH (RBC) [Entitic mass] 28.9 pg Normal 26.7-34.0 [facility] Comment on above: Performed By: #### C BC ####[facility] Jcdtnaqydl2031 [place] [address]DrEmma Broderick MCHC (RBC) [Mass/Vol] 31.4 g/dL Normal 29.9-35.2 [facility] Comment on above: Performed By: #### C BC ####[facility] Szjtuantpr[address] [place], [place] [address]DrEmma Broderick MCV (RBC) [Entitic vol] 92.1 fL Normal 81.0-99.0 [facility] Comment on above: Performed By: #### C BC ####[facility] Lcycxqwuru3817[address] [place], [place] [address]DrEmma Broderick MONO # 0.8 103/ul Normal 0.3-0.8 [facility] Comment on above: Performed By: #### C BC ####[facility] Hbiwljncmw7548[address] [place], [place] [address]DrEmma Broderick Monocytes/100 WBC (Bld) 10.7 % Normal 1.7-12.0 [facility] Comment on above: Performed By: #### C BC ####[facility] Ecotnumatn2948[address] [place], [place] [address]DrEmma Broderick NEUT # 5.4 103/ul Normal 1.4-6.5 [facility] Comment on above: Performed By: #### C BC ####[facility] Galuqjajmz059[address] [place], [place] [address]DrEmma Broderick Neutrophils/100 WBC (Bld) 70.1 % Normal 43.0-75.0 [facility] Comment on above: Performed By: #### C BC ####[facility] Pkpkrljdke7713[address] [place], [place] [address]DrEmma Broderick Platelet mean volume (Bld) [Entitic vol] 8.9 fL Critically low 9.5-13.5 [facility] Comment on above: Performed By: #### C BC ####[facility] Miyiadifyn739[address] [place], [place] [address]DrEmma Broderick PLT 221 103/ul Normal 150-450 [facility] Comment on above: Performed By: #### C BC ####[facility] Zzqexeqhfr6645 [place] [address]Dr. Slick Broderick RBC 3.04 106/ul Critically low 4.20-5.40 [facility] Comment on above: Performed By: #### C BC ####[facility] Skikyulaah4747 [place] [address]Dr. Slick Broderick WBC 7.7 103/ul Normal 4.0-11.0 [facility] Comment on above: Performed By: #### C BC ####[facility] Ycwtkxdsdq7810 [place] [address]Dr. Slick Broderick PRBC LEUKOREDUCEDon 03-29-20 PRBC LEUKOREDUCED Cross Match Result Compatible Unit Blood Type O Pos Unit Number [id number] Status Information Transfused Product ID Red Blood Cells Product Code [id number] Normal [facility] Comment on above: Performed By: #### P RBC ####[facility] Njnszesahc06[address] [place], [place] [address]Dr. Slick Broderick PROF CHEM 8 (BAS METB)on Anion gap [Moles/Vol] 9.6 mmol/L Normal [facility] Comment on above: Performed By: #### B MP ####[facility] Qpnrkohrmb814[address] [place], [place] [address]Dr. Slick Broderick Calcium [Mass/Vol] 9.4 mg/dL Normal 8.5-10.1 [facility] Comment on above: Performed By: #### B MP ####[facility] Zoduixnehw0354 [place] [address]Dr. Slick Broderick Chloride [Moles/Vol] 101 mmol/L Normal 98-107 [facility] Comment on above: Performed By: #### B MP ####[facility] Hqtekguybq7491 [place] [address]Dr. Slick Broderick CO2 [Moles/Vol] 28.3 mmol/L Normal 21.0-32.0 [facility] Comment on above: Performed By: #### B MP ####[facility] Lqkhugtidy4696 [place] [address]Dr. Slick Broderick Creatinine [Mass/Vol] 1.56 mg/dL Critically high 0.55-1.02 [facility] Comment on above: Performed By: #### B MP ####[facility] Nrlgafbspd0056 [place] [address]Dr. Slick Davie EGFR-AF SUDANESE 39 mL/min/1.73m2 Critically low >=60 [facility] Comment on above: Performed By: #### B MP ####[facility] Nafrxqsjne3358 [place] [address]Dr. Slick Davie EGFR-NON AF SUDANESE 33 mL/min/1.73m2 Critically low >=60 [facility] Comment on above: Performed By: #### B MP ####[facility] Aasxgxavqa833[address] [place], [place] [address]Dr. Slick Broderick Glucose [Mass/Vol] 88 mg/dL Normal 74-106 [facility] Comment on above: Performed By: #### B MP ####[facility] Wfycyqtccy177[address] [place], [place] [address]Dr. Slick Davie Potassium [Moles/Vol] 4.9 mmol/L Normal 3.5-5.1 [facility] Comment on above: Performed By: #### B MP ####[facility] Hwjhamjfcs9735[address] [place], [place] [address]Dr. Slick Broderick Sodium [Moles/Vol] 134 mmol/L Critically low 136-145 [facility] Comment on above: Performed By: #### B MP ####[facility] Eufnytmgez1549 [place] [address]Dr. Slick Broderick Urea nitrogen [Mass/Vol] 50.0 mg/dL Critically high 7.0-18.0 [facility] Comment on above: Performed By: #### B MP ####[facility] Cwflgiujsr4996 [place] [address]Dr. Slick Broderick Urea nitrogen/Creatinine [Mass ratio] 32.1 mg/mg Normal [facility] Comment on above: Performed By: #### B MP ####[facility] Gtnwqdmwwz5009 [place] [address]Dr. Slick Broderick CBC AUTO DIFFon 03-28-2022 BASO # 0.1 103/ul Normal 0.0-0.1 [facility] Comment on above: Performed By: #### C BC ####[facility] Aatfqbvgjq1269 [place] [address]Dr. Slick Broderick Basophils/100 WBC (Bld) 0.7 % Normal 0.2-2.0 [facility] Comment on above: Performed By: #### C BC ####[facility] Isgxpgmpmn[address] [place], [place] [address]Dr. Slick Broderick EO # 0.4 103/ul Normal 0.0-0.7 [facility] Comment on above: Performed By: #### C BC ####[facility] Aagfaquvbc5299[address] [place], [place] [address]Dr. Slick Davie Eosinophils/100 WBC (Bld) 5.5 % Normal 0.9-7.0 [facility] Comment on above: Performed By: #### C BC ####[facility] Nxmnnodtim838[address] [place], [place] [address]Dr. Slick Broderick Erythrocyte distribution width (RBC) [Ratio] 13.6 % Normal 11.0-15.0 [facility] Comment on above: Performed By: #### C BC ####[facility] Tqqwlyffqj479[address] [place], [place] [address]Dr. Slick Broderick Hematocrit (Bld) [Volume fraction] 27.9 % Critically low 36.0-48.0 [facility] Comment on above: Performed By: #### C BC ####[facility] Cofgsvzeip147[address] [place], [place] [address]Dr. Slick Broderick Hemoglobin (Bld) [Mass/Vol] 9.0 g/dL Critically low 12.0-16.0 [facility] Comment on above: Performed By: #### C BC ####[facility] Tsynpmuvkt78[address] [place], [place] [address]Dr. Slick Broderick IG # 0.02 10e3/ul Normal 0.00-0.03 [facility] Comment on above: Performed By: #### C BC ####[facility] Htjprwqfbj7714 [place] [address]DrEmma Slick Broderick IG % 0.3 % Normal 0.0-0.5 [facility] Comment on above: Performed By: #### C BC ####[facility] Ewzypqjlfh0818 [place] [address]DrEmma Slick Davie LYMPH # 0.9 103/ul Critically low 1.2-3.8 [facility] Comment on above: Performed By: #### C BC ####[facility] Ptraihehlw4612 [place] [address]DrEmma Slick Davie Lymphocytes/100 WBC (Bld) 13.0 % Critically low 20.5-60.0 [facility] Comment on above: Performed By: #### C BC ####[facility] Egzhfyuffc8223 [place] [address]DrEmma Meaganwendie Broderick MANUAL DIFF REQ NO Normal [facility] Comment on above: Performed By: #### C BC ####[facility] Rygrttkiiz3551 [place] [address]DrEmma Slick Broderick MCH (RBC) [Entitic mass] 29.6 pg Normal 26.7-34.0 [facility] Comment on above: Performed By: #### C BC ####[facility] Hbdwptzkpm[address] [place], [place] [address]Dr. Slick Davie MCHC (RBC) [Mass/Vol] 32.3 g/dL Normal 29.9-35.2 [facility] Comment on above: Performed By: #### C BC ####[facility] Dwufmynlcd1564[address] [place], [place] [address]DrEmma Slick Davie MCV (RBC) [Entitic vol] 91.8 fL Normal 81.0-99.0 [facility] Comment on above: Performed By: #### C BC ####[facility] Izlskrakzx[address] [place], [place] [address]DrEmma Meaganwendie Broderick MONO # 0.7 103/ul Normal 0.3-0.8 [facility] Comment on above: Performed By: #### C BC ####[facility] Bchtimhudr6374 [place] [address]Dr. Slick Broderick Monocytes/100 WBC (Bld) 11.1 % Normal 1.7-12.0 [facility] Comment on above: Performed By: #### C BC ####[facility] Tmkcbkfyor6224 [place] [id number]. Slick Broderick NEUT # 4.6 103/ul Normal 1.4-6.5 [facility] Comment on above: Performed By: #### C BC ####[facility] Fuwcvyzgxb4847 [place] [address]Dr. Slick Broderick Neutrophils/100 WBC (Bld) 69.4 % Normal 43.0-75.0 [facility] Comment on above: Performed By: #### C BC ####[facility] Ycechmotso0542 [place] [address]Dr. Slick Broderick Platelet mean volume (Bld) [Entitic vol] 8.9 fL Critically low 9.5-13.5 [facility] Comment on above: Performed By: #### C BC ####[facility] Ejniffvmdo3696 [place] [address]Dr. Slick Broderick PLT 216 103/ul Normal 150-450 [facility] Comment on above: Performed By: #### C BC ####[facility] Lqcmedpkzc4101 [place] [address]Dr. Slick Broderick RBC 3.04 106/ul Critically low 4.20-5.[address] [facility] Comment on above: Performed By: #### C BC ####[facility] Uilspdobla2835 [place] [phone]. Slick Broderick WBC 6.7 103/ul Normal 4.0-11.0 [facility] Comment on above: Performed By: #### C BC ####[facility] Jmhqojotuh3500 [place] [address]Dr. Slick Broderick BASO # 0.0 103/ul Normal 0.0-0.1 [facility] Comment on above: Performed By: #### C BC ####[facility] Xhhiasljhq2203 [place] [phone]. Slick Broderick Basophils/100 WBC (Bld) 0.5 % Normal 0.2-2.0 [facility] Comment on above: Performed By: #### C BC ####[facility] Satnunyadh6494 [place] [phone]. Slick Broderick EO # 0.4 103/ul Normal 0.0-0.7 [facility] Comment on above: Performed By: #### C BC ####[facility] Kzwhrhizrk0761 [place] [phone]. Slick Broderick Eosinophils/100 WBC (Bld) 5.3 % Normal 0.9-7.0 [facility] Comment on above: Performed By: #### C BC ####[facility] Ymvwgppnvb[address] [place], [place] [address]Dr. Slick Broderick Erythrocyte distribution width (RBC) [Ratio] 12.9 % Normal 11.0-15.0 [facility] Comment on above: Performed By: #### C BC ####[facility] Qbywwfxjjl76[address] [place], [place] [address]Dr. Slick Broderick Hematocrit (Bld) [Volume fraction] 23.9 % Critically low 36.0-48.0 [facility] Comment on above: Performed By: #### C BC ####[facility] Ohnqcytdxu[address] [place], [place] [address]Dr. Slick Broderick Hemoglobin (Bld) [Mass/Vol] 7.7 g/dL Critically low 12.0-16.0 [facility] Comment on above: Performed By: #### C BC ####[facility] Wsihzymrjt6339 [place] [address]Dr. Slick Broderick IG # 0.04 10e3/ul Critically high 0.00-0.03 [facility] Comment on above: Performed By: #### C BC ####[facility] Mfsnnarhyd3001 [place] [phone]. Slick Broderick IG % 0.5 % Normal 0.0-0.5 [facility] Comment on above: Performed By: #### C BC ####[facility] Dliqkezban7282 [place] [phone] Broderick LYMPH # 0.9 103/ul Critically low 1.2-3.8 [facility] Comment on above: Performed By: #### C BC ####[facility] Cqufcvwmpl2666 [place] [phone] Broderick Lymphocytes/100 WBC (Bld) 11.7 % Critically low 20.5-60.0 [facility] Comment on above: Performed By: #### C BC ####[facility] Wnlgjemxzz6265 [place] [phone] Broderick MANUAL DIFF REQ NO Normal [facility] Comment on above: Performed By: #### C BC ####[facility] Rvyyuqcmir7021 [place] [phone] Broderick MCH (RBC) [Entitic mass] 30.1 pg Normal 26.7-34.0 [facility] Comment on above: Performed By: #### C BC ####[facility] Ggrigbknjz3617 [place] [phone]. Slick Broderick MCHC (RBC) [Mass/Vol] 32.2 g/dL Normal 29.9-35.2 [facility] Comment on above: Performed By: #### C BC ####[facility] Vmcujfjntx3235 [place] [phone] Broderick MCV (RBC) [Entitic vol] 93.4 fL Normal 81.0-99.0 [facility] Comment on above: Performed By: #### C BC ####[facility] Mkasuxqdza3255 [place] [phone] Broderick MONO # 0.9 103/ul Critically high 0.3-0.8 [facility] Comment on above: Performed By: #### C BC ####[facility] Gittghsqgc6760 [place] [phone] Broderick Monocytes/100 WBC (Bld) 12.0 % Normal 1.7-12.0 [facility] Comment on above: Performed By: #### C BC ####[facility] Tpwvrztigx7588 [place] [phone]. Slick Broderick NEUT # 5.4 103/ul Normal 1.4-6.5 [facility] Comment on above: Performed By: #### C BC ####[facility] Geckhpbupa9581 [place] [phone]. Slick Broderick Neutrophils/100 WBC (Bld) 70.0 % Normal 43.0-75.0 [facility] Comment on above: Performed By: #### C BC ####[facility] Uomouuxtbn6420 [place] [phone]. Slick Broderick Platelet mean volume (Bld) [Entitic vol] 9.0 fL Critically low 9.5-13.5 [facility] Comment on above: Performed By: #### C BC ####[facility] Cuiszuqnyh3901 [place] [address]Dr. Slick Broderick PLT 210 103/ul Normal 150-450 [facility] Comment on above: Performed By: #### C BC ####[facility] Iofqvswapq6[address] [place], [place] [id number]. Slick Broderick RBC 2.56 106/ul Critically low 4.20-5.[address] [facility] Comment on above: Performed By: #### C BC ####[facility] Yaklwpxhra1563 [place] [phone]. Slick Broderick WBC 7.7 103/ul Normal 4.0-11.0 [facility] Comment on above: Performed By: #### C BC ####[facility] Ceoyagpcze5346 [place] [phone]. Slick Broderick CULTURE URINEon 03-28-2022 CULTURE URINE Culture Observations : NO GROWTH. Normal [facility] Comment on above: Performed By: #### U RCX ####[facility] Fhcmnepumv8032 [place] [phone]. Slick Broderick Covid-19 PCR (CVDTB)on 03-12 SARS-CoV-2 (COVID-19) RNA DONNIE+probe Ql (Unsp spec) Not detected Normal NOT DETECTED [facility] Comment on above: Result Comment: When diagnostic [...] for this test is supported by the [employer] of [employer] and Human Service's declaration that [...] be used). Performed By: #### C VDTBH ####[facility] Nhiqmmsgcw56[address] [place], [place] [address]Dr. Slick Broderick IRONon 03-28-2022 Iron [Mass/Vol] 32.0 ug/dL Critically low 50.0-170.0 [facility] Comment on above: Performed By: #### I YUNIOR ####[facility] Vlidjkxpjt[address] [place], [place] [address]Dr. Slick Broderick POINT OF CARE GLUCOSEon 03-12 Glucose [Mass/Vol] 119 mg/dL Critically high 74-106 [facility] Comment on above: Performed By: #### P OCGLUC ####[facility] Cgzqdfdcqd1805 [place] [address]Dr. Slick Broderick Glucose [Mass/Vol] 178 mg/dL Critically high 74-106 [facility] Comment on above: Performed By: #### P OCGLUC ####[facility] Jfcgoarcba2501 [place] [address]Dr. Slick Broderick Glucose [Mass/Vol] 106 mg/dL Normal 74-106 [facility] Comment on above: Performed By: #### P OCGLUC ####[facility] Yhlywybdpo6946 [place] [phone]. Slick Broderick PROF CHEM 8 (BAS METB)on Anion gap [Moles/Vol] 9.5 mmol/L Normal [facility] Comment on above: Performed By: #### B MP ####[facility] Pxwirdarcj2752 [place] [phone]. Slick Broderick Calcium [Mass/Vol] 9.5 mg/dL Normal 8.5-10.1 [facility] Comment on above: Performed By: #### B MP ####[facility] Lzhdlzxkks6649 [place] [address]Dr. Slick Broderick Chloride [Moles/Vol] 98 mmol/L Normal 98-107 [facility] Comment on above: Performed By: #### B MP ####[facility] Tqiulzebsb[address] [place], [place] [address]Dr. Slick Broderick CO2 [Moles/Vol] 28.5 mmol/L Normal 21.0-32.0 [facility] Comment on above: Performed By: #### B MP ####[facility] Uhxbkgtnec35[address] [place], [place] [address]Dr. Slick Broderick Creatinine [Mass/Vol] 1.90 mg/dL Critically high 0.55-1.02 [facility] Comment on above: Performed By: #### B MP ####[facility] Toguxjdcuk2298 [place] [address]Dr. Slick Broderick EGFR-AF SUDANESE 31 mL/min/1.73m2 Critically low >=60 [facility] Comment on above: Performed By: #### B MP ####[facility] Iofbjnbjkf2526 [place] [phone]. Slick Broderick EGFR-NON AF SUDANESE 26 mL/min/1.73m2 Critically low >=60 [facility] Comment on above: Performed By: #### B MP ####[facility] Czoxywsyaq7093 [place] [phone]. Slick Broderick Glucose [Mass/Vol] 102 mg/dL Normal 74-106 [facility] Comment on above: Performed By: #### B MP ####[facility] Vcabvlgjso4244 [place] [phone]. Meaganwendie Davie Potassium [Moles/Vol] 4.0 mmol/L Normal 3.5-5.1 [facility] Comment on above: Performed By: #### B MP ####[facility] Codqlxqkot1718 [place] [address]Dr. Slick Broderick Sodium [Moles/Vol] 132 mmol/L Critically low 136-145 [facility] Comment on above: Performed By: #### B MP ####[facility] Vkqnxromvo85[address] [place], [place] [address]Dr. Slick Broderick Urea nitrogen [Mass/Vol] 56.0 mg/dL Critically high 7.0-18.0 [facility] Comment on above: Performed By: #### B MP ####[facility] Zdznbjkrpu[address] [place], [place] [address]Dr. Slick Broderick Urea nitrogen/Creatinine [Mass ratio] 29.5 mg/mg Normal [facility] Comment on above: Performed By: #### B MP ####[facility] Sroltwguta[address] [place], [place] [address]Dr. Slick Broderick T4on 03-28-2022 T4 [Mass/Vol] 4.90 ug/dL Normal 4.80-13.90 [facility] Comment on above: Performed By: #### T 4 ####[facility] Bhqbymhdms[address] [place], [place] [address]Dr. Slick Broderick TSHon 03-28-2022 TSH 2.765 uIU/mL Normal 0.358-3.740 [facility] Comment on above: Performed By: #### T SH ####[facility] Dvqhtsdxil02[address] [place], [place] [address]Dr. Slick Broderick TYPE AND SCREENon 03-28-2022 TYPE AND SCREEN Negative Normal [facility] Comment on above: Performed By: #### T NS ####[facility] Uwuvjfnviu[address] [place], [place] [address]Dr. Slick Broderick UA RANDOM W/MICROSCOPICon BACTERIA NONE SEEN Normal NONE SEEN [facility] Comment on above: Performed By: #### U AMIC ####[facility] Gujwizfgoa114[address] [place], [place] [address]Dr. Slick Broderick Bilirubin Ql (U) Negative Normal NEGATIVE [facility] Comment on above: Performed By: #### U AMIC ####[facility] Xxvhedifpx4410 [place] [address]Dr. Slick Broderick CAST NONE SEEN Normal NONE SEEN [facility] Comment on above: Performed By: #### U AMIC ####[facility] Lusrxhllzl370[address] [place], [place] [address]Dr. Slick Broderick Clarity (U) CLEAR Normal CLEAR [facility] Comment on above: Performed By: #### U AMIC ####[facility] Afyfryrssp254[address] [place], [place] [address]Dr. Slick Broderick Color (U) LT. YELLOW Normal YELLOW [facility] Comment on above: Performed By: #### U AMIC ####[facility] Mtinhbtqsm8[address] [place], [place] [address]Dr. Slick Broderick Crystals LM Nom (Urine sed) NONE SEEN Normal NONE SEEN [facility] Comment on above: Performed By: #### U AMIC ####[facility] Vznmpungsy62[address] [place], [place] [address]Dr. Slick Broderick Epithelial cells LM Ql (Urine sed) FEW Abnormal NONE SEEN /RARE [facility] Comment on above: Performed By: #### U AMIC ####[facility] Jtwqfnuryk[address] [place], [place] [address]Dr. Slick Broderick Glucose Ql (U) Negative Normal NEGATIVE [facility] Comment on above: Performed By: #### U AMIC ####[facility] Ehiewmjsoj88[address] [place], [place] [address]Dr. Slick Broderick Hemoglobin Ql (U) MODERATE Abnormal NEGATIVE [facility] Comment on above: Performed By: #### U AMIC ####[facility] Bzymvxhlwc17[address] [place], [place] [address]Dr. Slick Broderick Ketones Ql (U) Negative Normal NEGATIVE [facility] Comment on above: Performed By: #### U AMIC ####[facility] Ztevgqeyqp6173 [place] [address]Dr. Slick Broderick LEUKOCYTES TRACE Abnormal NEGATIVE [facility] Comment on above: Performed By: #### U AMIC ####[facility] Jgjpmotqlf1786 [place] [address]Dr. Slick Broderick MUCOUS NONE SEEN Normal NONE SEEN [facility] Comment on above: Performed By: #### U AMIC ####[facility] [facility] [address] [place] [address]Dr. Slick Broderick Nitrite Ql (U) Negative Normal NEGATIVE [facility] Comment on above: Performed By: #### U AMIC ####[facility] Omvrbfbkvr08[address] [place], [place] [address]Dr. Slick Broderick pH (U) 6.0 [pH] Normal 5-9 [facility] Comment on above: Performed By: #### U AMIC ####[facility] Oqrrnlnusx[address] [place], [place] [address]Dr. Slick Broderick RBC 5-10 Abnormal 0-2 [facility] Comment on above: Performed By: #### U AMIC ####[facility] Grrcrszsfd03[address] [place], [place] [address]Dr. Slick Broderick SPEC GRAVITY <=1.005 Abnormal 1.005-<=1.[address] [facility] Comment on above: Performed By: #### U AMIC ####[facility] Quelhxxiwj[address] [place], [place] [address]Dr. Slick Broderick UA PROTEIN Negative Normal NEGATIVE/ TRACE [facility] Comment on above: Performed By: #### U AMIC ####[facility] Qgzacxdnzm4230[address] [place], [place] [address]Dr. Slick Broderick Urobilinogen Qn (U) 0.2 {Hiren'U}/dL Normal 0.2 - 1. 0 [facility] Comment on above: Performed By: #### U AMIC ####[facility] Xczifceilk[address] [place], [place] [address]Dr. Slick Broderick WBC 2-5 Abnormal NONE SEEN [facility] Comment on above: Performed By: #### U AMIC ####[facility] Mqvqgayevs[address] [place] [address]Dr. Slick Broderick CBC AUTO DIFFon 03-27-2022 BASO # 0.0 103/ul Normal 0.0-0.1 [facility] Comment on above: Performed By: #### C BC ####[facility] Ougiwkrnxi4660[address] [place], [place] [address]Dr. Slick Davie Basophils/100 WBC (Bld) 0.5 % Normal 0.2-2.0 [facility] Comment on above: Performed By: #### C BC ####[facility] Maysqlavzr44[address] [place], [place] [address]Dr. Slick Broderick EO # 0.4 103/ul Normal 0.0-0.7 [facility] Comment on above: Performed By: #### C BC ####[facility] Bbdtojapqi07[address] [place], [place] [address]Dr. Slick Davie Eosinophils/100 WBC (Bld) 5.2 % Normal 0.9-7.0 [facility] Comment on above: Performed By: #### C BC ####[facility] Arfusrnftc[address] [place], [place] [address]Dr. Slick Broderick Erythrocyte distribution width (RBC) [Ratio] 13.1 % Normal 11.0-15.0 [facility] Comment on above: Performed By: #### C BC ####[facility] Vucghmnnhu[address] [place], [place] [address]Dr. Slick Broderick Hematocrit (Bld) [Volume fraction] 24.7 % Critically low 36.0-48.0 [facility] Comment on above: Performed By: #### C BC ####[facility] Mnzxmswuni[address] [place], [place] [address]Dr. Slick Broderick Hemoglobin (Bld) [Mass/Vol] 7.9 g/dL Critically low 12.0-16.0 [facility] Comment on above: Performed By: #### C BC ####[facility] Thgwvmrwmh[address] [place] [id number]. Slick Broderick IG # 0.06 10e3/ul Critically high 0.00-0.03 The [facility] Comment on above: Performed By: #### C BC ####[facility] Wbpbtvmijn3959 [place] [address]Dr. Slick Broderick IG % 0.8 % Critically high 0.0-0.[address] [facility] Comment on above: Performed By: #### C BC ####[facility] Lfqiewqomn52[address] [place] [address]Dr. Slick Broderick LYMPH # 0.9 103/ul Critically low 1.2-3.8 [facility] Comment on above: Performed By: #### C BC ####[facility] Tjwgtopfte[address] [place] [address]Dr. Slick Broderick Lymphocytes/100 WBC (Bld) 11.1 % Critically low 20.5-60.0 [facility] Comment on above: Performed By: #### C BC ####[facility] Rcsnjelhud8[address] [place], [place] [address]Dr. Slick Broderick MANUAL DIFF REQ NO Normal [facility] Comment on above: Performed By: #### C BC ####[facility] Ltonrpdyml1064[address] [place], [place] [address]Dr. Slick Broderick MCH (RBC) [Entitic mass] 29.7 pg Normal 26.7-34.0 [facility] Comment on above: Performed By: #### C BC ####[facility] Kcisgosdis[address] [place], [place] [address]Dr. Slick Broderick MCHC (RBC) [Mass/Vol] 32.0 g/dL Normal 29.9-35.2 [facility] Comment on above: Performed By: #### C BC ####[facility] Tnqiqnkxeg475[address] [place], [place] [address]Dr. Slick Broderick MCV (RBC) [Entitic vol] 92.9 fL Normal 81.0-99.0 [facility] Comment on above: Performed By: #### C BC ####[facility] Lzszcpkzru7[address] [place] [phone]. Slick Broderick MONO # 0.8 103/ul Normal 0.3-0.8 [facility] Comment on above: Performed By: #### C BC ####[facility] Zxwpoomyni9799 [place] [id number]. Slick Broderick Monocytes/100 WBC (Bld) 9.5 % Normal 1.7-12.0 [facility] Comment on above: Performed By: #### C BC ####[facility] Krnfzzihyq6[address] [place], [place] [id number]. Slick Broderick NEUT # 5.8 103/ul Normal 1.4-6.5 [facility] Comment on above: Performed By: #### C BC ####[facility] Kefffdklgq0225[address] [place], [place] [address]Dr. Slick Broderick Neutrophils/100 WBC (Bld) 72.9 % Normal 43.0-75.0 [facility] Comment on above: Performed By: #### C BC ####[facility] Exibnvvngf447[address] [place], [place] [address]Dr. Slick Broderick Platelet mean volume (Bld) [Entitic vol] 8.9 fL Critically low 9.5-13.5 [facility] Comment on above: Performed By: #### C BC ####[facility] Zzksmmbovn7[address] [place], [place] [id number]. Slick Broderick PLT 220 103/ul Normal 150-450 [facility] Comment on above: Performed By: #### C BC ####[facility] Gavykgbyyi1385[address] [place], [place] [id number]. Slick Broderick RBC 2.66 106/ul Critically low 4.20-5.[address] [facility] Comment on above: Performed By: #### C BC ####[facility] Rqkirqetuv8[address] [place], [place] [id number]. Slick Broderick WBC 7.9 103/ul Normal 4.0-11.0 [facility] Comment on above: Performed By: #### C BC ####[facility] Bxetafpmmg98[address] [place], [place] [id number]. Slick Broderick OCC BLD IMMUNO SCREENon 03-12 OCCULT BLOOD Positive Abnormal NEGATIVE [facility] Comment on above: Performed By: #### O BSCRN ####[facility] Ocnnciuxkd[address] [place] [address]Dr. Slick Broderick PROF 14(COMP METB)on 03-27-2 022 Albumin [Mass/Vol] 3.2 g/dL Critically low 3.4-5.0 [facility] e [facility] Comment on above: Performed By: #### C MP ####[facility] Jnxhlpazzk[address] [place] [address]Dr. Slick Broderick Albumin/Globulin [Mass ratio] 0.9 {ratio} Normal [facility] Comment on above: Performed By: #### C MP ####[facility] Mfgjblhqbc05[address] [place], [place] [address]Dr. Slick Broderick ALP [Catalytic activity/Vol] 101 U/L Normal 46-116 [facility] Comment on above: Performed By: #### C MP ####[facility] Mfzdyhvdse04[address] [place], [place] [address]Dr. Slick Broderick ALT [Catalytic activity/Vol] 28 U/L Normal 14-59 [facility] Comment on above: Performed By: #### C MP ####[facility] Nziwtbhiix99[address] [place], [place] [address]Dr. Slick Broderick Anion gap [Moles/Vol] 11.5 mmol/L Normal [facility] Comment on above: Performed By: #### C MP ####[facility] Dvzgylhsra217[address] [place], [place] [address]Dr. Slick Broderick AST [Catalytic activity/Vol] 21 U/L Normal 15-37 [facility] Comment on above: Performed By: #### C MP ####[facility] Mzqyyarjlw[address] [place], [place] [address]Dr. Slick Broderick Bilirubin [Mass/Vol] 0.2 mg/dL Normal 0.2-1.0 [facility] Comment on above: Performed By: #### C MP ####[facility] Vvrahtnyej8667[address] [place], [place] [address]Dr. Slick Broderick Calcium [Mass/Vol] 9.3 mg/dL Normal 8.5-10.1 [facility] Comment on above: Performed By: #### C MP ####[facility] Kgbepaqjlg[address] [place] [address]Dr. Slick Broderick Chloride [Moles/Vol] 93 mmol/L Critically low 98-107 [facility] Comment on above: Performed By: #### C MP ####[facility] Vvsqhirwgz[address] [place], [place] [address]Dr. Slick Broderick CO2 [Moles/Vol] 27.3 mmol/L Normal 21.0-32.0 [facility] Comment on above: Performed By: #### C MP ####[facility] Oevwfjsxft218[address] [place], [place] [address]Dr. Slick Broderick Creatinine [Mass/Vol] 1.98 mg/dL Critically high 0.55-1.02 [facility] Comment on above: Performed By: #### C MP ####[facility] Ffukafnvoc40[address] [place], [place] [address]Dr. Slick Broderick EGFR-AF SUDANESE 30 mL/min/1.73m2 Critically low >=60 [facility] Comment on above: Performed By: #### C MP ####[facility] Hpwarzcrxg9[address] [place], [place] [address]Dr. Slick Broderick EGFR-NON AF SUDANESE 25 mL/min/1.73m2 Critically low >=60 [facility] Comment on above: Performed By: #### C MP ####[facility] Zxcyfrfedv[address] [place], [place] [address]Dr. Slick Broderick Globulin (S) [Mass/Vol] 3.6 g/dL Normal [facility] Comment on above: Performed By: #### C MP ####[facility] Xolkfpudet[address] [place], [place] [address]Dr. Slick Broderick Glucose [Mass/Vol] 123 mg/dL Critically high 74-106 [facility] Comment on above: Performed By: #### C MP ####[facility] Kygzpsriwi5[address] [place], [place] [address]Dr. Slick Broderick Potassium [Moles/Vol] 3.8 mmol/L Normal 3.5-5.1 [facility] Comment on above: Performed By: #### C MP ####[facility] Vvtfxkyxna[address] [place] [address]Dr. Slick Broderick Protein [Mass/Vol] 6.8 g/dL Normal 6.4-8.2 [facility] Comment on above: Performed By: #### C MP ####[facility] Bcsvalovmu[address] [place] [address]Dr. Slick Broderick Sodium [Moles/Vol] 128 mmol/L Critically low 136-145 [facility] Comment on above: Performed By: #### C MP ####[facility] Edxilfmlbf6734 [place] [address]Dr. Slick Broderick Urea nitrogen [Mass/Vol] 64.0 mg/dL Critically high 7.0-18.0 [facility] Comment on above: Performed By: #### C MP ####[facility] Jhkdaxczdq[address] [place], [place] [address]Dr. Slick Broderick Urea nitrogen/Creatinine [Mass ratio] 32.3 mg/mg Normal [facility] Comment on above: Performed By: #### C MP ####[facility] Jjcdrfktrc[address] [place], [place] [address]Dr. Slick Broderick TROPONIN, HIGH SENSITIVITYon 03-27-2022 HSTROP 9.0 pg/mL Normal 4.0-51.3 [facility] Comment on above: Result Comment: CUT- OFF POINTS HAVE BEEN ESTABLISHED BASED ON THE FOURTH UNIVERSAL DEFINITIONS OF MYOCARDIALINFARCTION. THE UPPER REFERENCE LIMIT (URL) OF TROPONIN, DEFINED THE 99TH PERCENTILE OFcTnI DISTRIBUTION IN A REFERENCE POPULATION, HAS BEEN CONFIRMED THE DECISION THRESHOLDFOR [place] DIAGNOSIS. Performed By: #### H STROPN ####[facility] Mqaymczqqw[address] [place], [place] [address]Dr. Slick Davie Progress Noteson 03-24-2022 [employer] Authentication Interface Message Text 1:32 AM EMERGENCY TRIAGE, TREAT AND TRANSPORT (ET3) DOCUMENTATION OF TELEHEALTH VISIT Date / Time: 03/24/2022 / 1:32 AM Name: Linda Nascimento : 1950 SSN: [id number] EMS Agency: [facility] [] Verbal consent obtained [x] Implied [...] Completed by: Chidi Conte MD Normal [facility] T4, T3U, FTI [facility]on 02-12 Free Thyroxine Index 2.3 Normal 1.2-4.9 [facility] Comment on above: Performed By: #### T HYLC ####[facility] [address]fclaliwo4[address] [place] [phone] Broderick T3 Uptake 31 % Normal 24-39 [facility] Comment on above: Performed By: #### T HYLC ####[facility] Samvgjtidi7090 [place], [place] [address]XeEmma Broderick T4 [Mass/Vol] 7.4 ug/dL Normal 4.5-12.0 The [facility] Comment on above: Performed By: #### T HYLC ####[facility] Qrbxcubfux45[address] [place] [address]DrEmma Slick Davie VIT D 25-OH LABCORPon 2021 Vitamin D, 25-Hydroxy 58.7 ng/mL Normal 30.0-100.0 [facility] Comment on above: Result Comment: Loki min D deficiency has been defined by the [place] [facility] and an Endocrine Society practice guideline as alevel of serum 25-OH vitamin D less than 20 ng/mL (1,2).The Endocrine Society went on to further define vitamin Dinsufficiency as a level between 21 and 29 ng/mL (2).1. IOM ([place] [employer]). 2010. Dietary reference intakes for calcium and D. [place]: The National Academies Press.2. Maryam MF, [place], Ángela SCHAEFER, et al. Evaluation, treatment, and prevention of vitamin D deficiency: an Endocrine Society clinical practice guideline. JCEM. 2010; 96(7):1911-30. Performed By: #### V ITADLC ####[facility] Eznpwocxoc254[address] [place], [place] [address]DrEmma Broderick CBC AUTO DIFFon 02-11-2022 BASO # 0.0 103/ul Normal 0.0-0.1 [facility] Comment on above: Performed By: #### C BC ####[facility] Qranoleuke3402 [place] [address]DrEmma Broderick Basophils/100 WBC (Bld) 0.6 % Normal 0.2-2.0 [facility] Comment on above: Performed By: #### C BC ####[facility] Qfewhltfbu3807 [place] [address]DrEmma Broderick EO # 0.3 103/ul Normal 0.0-0.7 [facility] Comment on above: Performed By: #### C BC ####[facility] Uufbnslzfj3527 [place] [address]DrEmma Broderick Eosinophils/100 WBC (Bld) 4.6 % Normal 0.9-7.0 [facility] Comment on above: Performed By: #### C BC ####[facility] Nraltbhash0800[address] [place], [place] [address]Dr. Slick Davie Erythrocyte distribution width (RBC) [Ratio] 14.0 % Normal 11.0-15.0 [facility] Comment on above: Performed By: #### C BC ####[facility] Zejzrpodup1316[address] [place], [place] [address]Dr. Slick Broderick Hematocrit (Bld) [Volume fraction] 28.4 % Critically low 36.0-48.0 [facility] Comment on above: Performed By: #### C BC ####[facility] Hsyxhoduub11[address] [place], [place] [address]Dr. Slick Broderick Hemoglobin (Bld) [Mass/Vol] 9.3 g/dL Critically low 12.0-16.0 [facility] Comment on above: Performed By: #### C BC ####[facility] Wcnqwxhljl817[address] [place], [place] [address]Dr. Slick Broderick IG # 0.03 10e3/ul Normal 0.00-0.03 [facility] Comment on above: Performed By: #### C BC ####[facility] Smlsdbjbie17[address] [place], [place] [address]Dr. Slick Broderick IG % 0.5 % Normal 0.0-0.5 [facility] Comment on above: Performed By: #### C BC ####[facility] Bucnqjmrvx44[address] [place], [place] [address]DrEmma Broderick LYMPH # 0.6 103/ul Critically low 1.2-3.8 [facility] Comment on above: Performed By: #### C BC ####[facility] Iznhxplhxb7738[address] [place], [place] [address]Dr. Slick Broderick Lymphocytes/100 WBC (Bld) 9.5 % Critically low 20.5-60.0 [facility] Comment on above: Performed By: #### C BC ####[facility] Njtcqzyxsv39[address] [place], [place] [address]DrEmma Broderick MANUAL DIFF REQ NO Normal [facility] Comment on above: Performed By: #### C BC ####[facility] Idvxxtrudl4993 [place] [address]DrEmma Broderick MCH (RBC) [Entitic mass] 30.5 pg Normal 26.7-34.0 [facility] Comment on above: Performed By: #### C BC ####[facility] Fyvlovxdxk7085 [place] [address]DrEmma Broderick MCHC (RBC) [Mass/Vol] 32.7 g/dL Normal 29.9-35.2 [facility] Comment on above: Performed By: #### C BC ####[facility] Ijalnwudqb278[address] [place], [place] [address]DrEmma Broderick MCV (RBC) [Entitic vol] 93.1 fL Normal 81.0-99.0 [facility] Comment on above: Performed By: #### C BC ####[facility] Yaeuvvcmit[address] [place], [place] [address]DrEmma Broderick MONO # 0.6 103/ul Normal 0.3-0.8 [facility] Comment on above: Performed By: #### C BC ####[facility] Grpfjrxpzv12[address] [place], [place] [address]DrEmma Broderick Monocytes/100 WBC (Bld) 8.4 % Normal 1.7-12.0 [facility] Comment on above: Performed By: #### C BC ####[facility] Lmlquobpkm[address] [place], [place] [address]DrEmma Broderick NEUT # 5.0 103/ul Normal 1.4-6.5 [facility] Comment on above: Performed By: #### C BC ####[facility] Oifyuyuhcq[address] [place], [place] [address]DrEmma Broderick Neutrophils/100 WBC (Bld) 76.4 % Critically high 43.0-75.0 [facility] Comment on above: Performed By: #### C BC ####[facility] Qgltqnxjaq09[address] [place], [place] [address]DrEmma Broderick Platelet mean volume (Bld) [Entitic vol] 9.3 fL Critically low 9.5-13.5 [facility] Comment on above: Performed By: #### C BC ####[facility] Maibieemuj[address] [place] [address]Dr. Slick Broderick PLT 192 103/ul Normal 150-450 [facility] Comment on above: Performed By: #### C BC ####[facility] Kirhxjmoes98[address] [place] [address]Dr. Slick Broderick RBC 3.05 106/ul Critically low 4.20-5.[address] [facility] Comment on above: Performed By: #### C BC ####[facility] Xzkbcwiocr4768 [place] [address]Dr. Slick Broderick WBC 6.6 103/ul Normal 4.0-11.0 [facility] Comment on above: Performed By: #### C BC ####[facility] Eipsuhpcui9941 [place] [address]Dr. Slick Broderick IRONon 02-11-2022 Iron [Mass/Vol] 62.0 ug/dL Normal 50.0-170.[address] [facility] Comment on above: Performed By: #### I YUNIOR ####[facility] Bxtirhuzum[address] [place], [place] [address]Dr. Slick Broderick LIPID PROFILEon 02-11-2022 CHOL-HDL RATIO NORM SEE BELOW Normal [facility] Comment on above: Result Comment: 3.3 - 4.4 LOW RISK 4.4 - 7.1 AVERAGE RISK 7.1 - 11.0 MODERATE RISK >11.0 HIGH RISK Performed By: #### C MP, LIPID, TSH ####[facility] Bgkjliwcgh[address] [place] [address]Dr. lSick Broderick Cholesterol [Mass/Vol] 204 mg/dL Critically high <=200 [facility] Comment on above: Performed By: #### C MP, LIPID, TSH ####[facility] Sqnclssiaq0356 [place] [address]Dr. Slick Broderick Cholesterol in HDL [Mass/Vol] 53 mg/dL Normal 40-60 [facility] Comment on above: Performed By: #### C MP, LIPID, TSH ####[facility] Avgqecizhd9754 [place] [id number]. Slick Broderick Cholesterol in LDL [Mass/Vol] 134.0 mg/dL Normal [facility] Comment on above: Performed By: #### C MP, LIPID, TSH ####[facility] Afpnnyuesw2930 [place] [phone]. Slick Broderick Cholesterol.total/C holesterol in HDL [Mass ratio] 3.8 {ratio} Normal [facility] Comment on above: Performed By: #### C MP, LIPID, TSH ####[facility] Nyeupsabzt7250 [place] [phone]. Slick Broderick HDL NORMAL > or = 60 mg/dl - LO W CARDIOVASCULAR RISK <40 mg/dl - HIGH CARDIOVASCULAR RISK Normal [facility] Comment on above: Performed By: #### C MP, LIPID, TSH ####[facility] Yyczbnblbm2176 [place] [address]Dr. Slick Broderick LDL CALC NORMAL SEE BELOW Normal [facility] Comment on above: Result Comment: <100 mg/dl OPTIMAL 100 - 129 mg/dl NEAR OR ABOVE OPTIMAL 130 - 159 mg/dl BORDERLINE HIGH 160 - 189 mg/dl HIGH >190 mg/dl VERY HIGH Performed By: #### C MP, LIPID, TSH ####[facility] Gubxtvlsga0632 [place] [phone]. Slick Broderick Triglyceride [Mass/Vol] 85 mg/dL Normal <=150 [facility] Comment on above: Performed By: #### C MP, LIPID, TSH ####[facility] Kvchifomyu7957 [place] [phone]. Slick Broderick VLDL CALC 17.0 mg/dL Normal [facility] Comment on above: Performed By: #### C MP, LIPID, TSH ####[facility] Bfbgzagmkz9259 [place] [phone]. Slick Broderick PROF 14(COMP METB)on 022 Albumin [Mass/Vol] 3.5 g/dL Normal 3.4-5.0 [facility] Comment on above: Performed By: #### C MP, LIPID, TSH ####[facility] Ixwcwmgicb7887 [place] [address]Dr. Slick Broderick Albumin/Globulin [Mass ratio] 0.9 {ratio} Normal [facility] Comment on above: Performed By: #### C MP, LIPID, TSH ####[facility] Pvpifrmybm5624 [place] [address]Dr. Slick Broderick ALP [Catalytic activity/Vol] 93 U/L Normal 46-116 [facility] Comment on above: Performed By: #### C MP, LIPID, TSH ####[facility] Wuarqzqkhz9041 [place] [address]Dr. lSick Broderick ALT [Catalytic activity/Vol] 21 U/L Normal 14-59 [facility] Comment on above: Performed By: #### C MP, LIPID, TSH ####[facility] Cfcicsflit52[address] [place], [place] [address]Dr. Slick Broderick Anion gap [Moles/Vol] 13.7 mmol/L Normal [facility] Comment on above: Performed By: #### C MP, LIPID, TSH ####[facility] Xmqhhbcjyb[address] [place], [place] [address]Dr. Slick Broderick AST [Catalytic activity/Vol] 13 U/L Critically low 15-37 [facility] Comment on above: Performed By: #### C MP, LIPID, TSH ####[facility] Rfterrokur2328 [place] [address]Dr. Slick Broderick Bilirubin [Mass/Vol] 0.4 mg/dL Normal 0.2-1.0 [facility] Comment on above: Performed By: #### C MP, LIPID, TSH ####[facility] Yyxcrmacay[address] [place], [place] [address]Dr. Slick Broderick Calcium [Mass/Vol] 9.2 mg/dL Normal 8.5-10.1 [facility] Comment on above: Performed By: #### C MP, LIPID, TSH ####[facility] Gfmddggbap[address] [place], [place] [address]Dr. Slick Broderick Chloride [Moles/Vol] 96 mmol/L Critically low 98-107 [facility] Comment on above: Performed By: #### C MP, LIPID, TSH ####[facility] Makkokyetm8388 [place] [address]Dr. Slick Broderick CO2 [Moles/Vol] 27.8 mmol/L Normal 21.0-32.0 [facility] Comment on above: Performed By: #### C MP, LIPID, TSH ####[facility] Uqmtbqhknr4091 [place] [address]Dr. Slick Broderick Creatinine [Mass/Vol] 1.52 mg/dL Critically high 0.55-1.02 [facility] Comment on above: Performed By: #### C MP, LIPID, TSH ####[facility] Ghauplhhhj[address] [place] [address]Dr. Slick Broderick EGFR-AF SUDANESE 41 mL/min/1.73m2 Critically low >=60 [facility] Comment on above: Performed By: #### C MP, LIPID, TSH ####[facility] Bztropwjts8279 [place] [address]Dr. Slick Broderick EGFR-NON AF SUDANESE 34 mL/min/1.73m2 Critically low >=60 [facility] Comment on above: Performed By: #### C MP, LIPID, TSH ####[facility] Ibxzkldvvr8113 [place] [address]Dr. Slick Broderick Globulin (S) [Mass/Vol] 3.7 g/dL Normal [facility] Comment on above: Performed By: #### C MP, LIPID, TSH ####[facility] Lumyvynuhl360[address] [place] [address]Dr. Slick Broderick Glucose [Mass/Vol] 96 mg/dL Normal 74-106 [facility] Comment on above: Performed By: #### C MP, LIPID, TSH ####[facility] Clahtjlrxi34[address] [place] [address]Dr. Slick Broderick Potassium [Moles/Vol] 4.5 mmol/L Normal 3.5-5.1 [facility] Comment on above: Performed By: #### C MP, LIPID, TSH ####[facility] Nwqfqpayfa0913 [place] [address]Dr. Slick Broderick Protein [Mass/Vol] 7.2 g/dL Normal 6.4-8.2 [facility] Comment on above: Performed By: #### C MP, LIPID, TSH ####[facility] Qdfgkxwvsy1818 [place] [address]Dr. Slick Broderick Sodium [Moles/Vol] 133 mmol/L Critically low 136-145 [facility] Comment on above: Performed By: #### C MP, LIPID, TSH ####[facility] Kalvricxxi8135 [place] [address]Dr. Slick Broderick Urea nitrogen [Mass/Vol] 37.0 mg/dL Critically high 7.0-18.0 [facility] Comment on above: Performed By: #### C MP, LIPID, TSH ####[facility] Jsprzdokck[address] [place], [place] [address]Dr. Slick Broderick Urea nitrogen/Creatinine [Mass ratio] 24.3 mg/mg [facility] Comment on above: Performed By: #### C MP, LIPID, TSH ####[facility] Mewswitnbl[address] [place], [place] [address]Dr. Slick Broderick TSHon 02-11-2022 TSH 3.993 uIU/mL Critically high 0.358-3.740 [facility] Comment on above: Performed By: #### C MP, LIPID, TSH ####[facility] Bkmouphcpm[address] [place], [place] [address]Dr. Slick Broderick PRBC LEUKOREDUCEDon 12-18-19 PRBC LEUKOREDUCED Normal [facility] Comment on above: Performed By: #### P RBC ####[facility] Foqjxcuilw[address] [place], [place] [address]Dr. Slick Broderick PRBC LEUKOREDUCED Cross Match Result Compatible Unit Blood Type O Pos Unit Number [id number] Status Information Transfused Product ID Red Blood Cells Product Code [id number] Normal [facility] Comment on above: Performed By: #### P RBC ####[facility] Xeeybpttnc[address] [place], [place] [address]Dr. Slick Broderick H PYLORI ANTIBODY IGGon H. PYLORI IGG ABS 0.18 Index Value Normal 0.00-0.79 [facility] Comment on above: Result Comment: Nega tive <0.80 Equivocal 0.80 - 0.89 Positive >0.89 Performed By: #### H PYLLC ####[facility] Qbnfleenpg7[address] [place], [place] [address]Dr. Slick Broderick BNPon 12-14-2021 Natriuretic peptide B (Bld) [Mass/Vol] 846.0 pg/mL Normal <=900.0 [facility] Comment on above: Performed By: #### C MP, BNP ####[facility] Wycowrmaoq450[address] [place], [place] [address]Dr. Slick Broderick CBC AUTO DIFFon 12-14-2021 BASO # 0.1 103/ul Normal 0.0-0.1 [facility] Comment on above: Performed By: #### C BC ####[facility] Mvofquxedv312[address] [place], [place] [address]Dr. Slick Broderick Basophils/100 WBC (Bld) 0.7 % Normal 0.2-2.0 [facility] Comment on above: Performed By: #### C BC ####[facility] Zouaktqzyu[address] [place], [place] [address]Dr. Slick Broderick EO # 0.3 103/ul Normal 0.0-0.7 [facility] Comment on above: Performed By: #### C BC ####[facility] Rpknjqmolk95[address] [place], [place] [address]Dr. Slick Broderick Eosinophils/100 WBC (Bld) 4.6 % Normal 0.9-7.0 [facility] Comment on above: Performed By: #### C BC ####[facility] Drxjahvxpg119[address] [place], [place] [address]Dr. Slick Broderick Erythrocyte distribution width (RBC) [Ratio] 20.0 % Critically high 11.0-15.0 [facility] Comment on above: Performed By: #### C BC ####[facility] Pgtdajxdgm8701 [place] [address]Dr. Slick Broderick Hematocrit (Bld) [Volume fraction] 29.1 % Critically low 36.0-48.0 [facility] Comment on above: Performed By: #### C BC ####[facility] Gmlazqqviu1565 [place] [address]Dr. Meaganwendie Broderick Hemoglobin (Bld) [Mass/Vol] 9.1 g/dL Critically low 12.0-16.0 [facility] Comment on above: Performed By: #### C BC ####[facility] Dsokipcqnk17[address] [place], [place] [address]Dr. Slick Broderick IG # 0.06 10e3/ul Critically high 0.00-0.03 [facility] Comment on above: Performed By: #### C BC ####[facility] Unkqhuwmno365[address] [place], [place] [address]Dr. Slick Broderick IG % 0.9 % Critically high 0.0-0.[address] [facility] Comment on above: Performed By: #### C BC ####[facility] Wvqbqduojb68[address] [place], [place] [address]Dr. Slick Broderick LYMPH # 0.8 103/ul Critically low 1.2-3.8 [facility] Comment on above: Performed By: #### C BC ####[facility] Dhmvxnuava4301 [place] [address]Dr. Slick Broderick Lymphocytes/100 WBC (Bld) 11.2 % Critically low 20.5-60.0 [facility] Comment on above: Performed By: #### C BC ####[facility] Bgdwevciwd33[address] [place], [place] [address]Dr. Slick Broderick MANUAL DIFF REQ NO Normal [facility] Comment on above: Performed By: #### C BC ####[facility] Qjauqobnoj65[address] [place], [place] [address]Dr. Slick Broderick MCH (RBC) [Entitic mass] 30.5 pg Normal 26.7-34.0 [facility] Comment on above: Performed By: #### C BC ####[facility] Larowyyzfz3236 [place] [phone]. Slick Broderick MCHC (RBC) [Mass/Vol] 31.3 g/dL Normal 29.9-35.2 [facility] Comment on above: Performed By: #### C BC ####[facility] Wlgxjqudis8599 [place] [phone]. Slick Broderick MCV (RBC) [Entitic vol] 97.7 fL Normal 81.0-99.0 [facility] Comment on above: Performed By: #### C BC ####[facility] Jylbtqibut6881 [place] [phone]. Slick Broderick MONO # 0.7 103/ul Normal 0.3-0.8 [facility] Comment on above: Performed By: #### C BC ####[facility] Ajeoizegeq327[address] [place], [place] [address]Dr. Slick Broderick Monocytes/100 WBC (Bld) 9.7 % Normal 1.7-12.0 [facility] Comment on above: Performed By: #### C BC ####[facility] Rvcxokqxqe14[address] [place], [place] [address]Dr. Meaganwendie Broderick NEUT # 4.9 103/ul Normal 1.4-6.5 [facility] Comment on above: Performed By: #### C BC ####[facility] Rqgkblvkyz[address] [place], [place] [id number]. Slick Broderick Neutrophils/100 WBC (Bld) 72.9 % Normal 43.0-75.0 [facility] Comment on above: Performed By: #### C BC ####[facility] Wynywwuqfr6967[address] [place], [place] [address]Dr. Slick Broderick Platelet mean volume (Bld) [Entitic vol] 8.9 fL Critically low 9.5-13.5 [facility] Comment on above: Performed By: #### C BC ####[facility] Xziiqkvqkj[address] [place], [place] [id number]. Slick Broderick PLT 239 103/ul Normal 150-450 [facility] Comment on above: Performed By: #### C BC ####[facility] Uxvqdgkohz9054 [place], [place] [address]Uk. Slick Broderick RBC 2.98 106/ul Critically low 4.20-5.[address] [facility] Comment on above: Performed By: #### C BC ####[facility] Kvkddndhsw0990 [place], [place] [address]Xy. Slick Broderick WBC 6.8 103/ul Normal 4.0-11.0 [facility] Comment on above: Performed By: #### C BC ####[facility] Somvnbvcjs4719 [place] [phone]. Slick Broderick BASO # 0.1 103/ul Normal 0.0-0.1 [facility] Comment on above: Performed By: #### C BC ####[facility] Imevrbycar6722 [place] [phone]. Slick Broderick Basophils/100 WBC (Bld) 0.9 % Normal 0.2-2.0 [facility] Comment on above: Performed By: #### C BC ####[facility] Hpnaonrpue4674 [place] [phone]. Slick Broderick EO # 0.3 103/ul Normal 0.0-0.7 [facility] Comment on above: Performed By: #### C BC ####[facility] Ceisninoln4775 [place] [phone]. Slick Broderick Eosinophils/100 WBC (Bld) 4.9 % Normal 0.9-7.0 [facility] Comment on above: Performed By: #### C BC ####[facility] Gkqfhhakiz5442 [place] [phone]. Slick Broderick Erythrocyte distribution width (RBC) [Ratio] 20.3 % Critically high 11.0-15.0 [facility] Comment on above: Performed By: #### C BC ####[facility] Kouczeciov5608 [place] [phone]. Slick Broderick Hematocrit (Bld) [Volume fraction] 27.6 % Critically low 36.0-48.0 [facility] Comment on above: Performed By: #### C BC ####[facility] Iiifogqaoa5105 [place] [phone]. Slick Broderick Hemoglobin (Bld) [Mass/Vol] 8.7 g/dL Critically low 12.0-16.0 [facility] Comment on above: Performed By: #### C BC ####[facility] Jjghabrihp7875 [place] [phone]. Slick Broderick IG # 0.05 10e3/ul Critically high 0.00-0.03 [facility] Comment on above: Performed By: #### C BC ####[facility] Hcoilagkmm6355 [place] [phone]. Slick Broderick IG % 0.7 % Critically high 0.0-0.[address] [facility] Comment on above: Performed By: #### C BC ####[facility] Nagspkslaq40[address] [place], [place] [address]Dr. Slick Broderick LYMPH # 0.9 103/ul Critically low 1.2-3.8 [facility] Comment on above: Performed By: #### C BC ####[facility] Ojxlduckoa9276 [place] [address]Dr. Slick Broderick Lymphocytes/100 WBC (Bld) 13.1 % Critically low 20.5-60.0 [facility] Comment on above: Performed By: #### C BC ####[facility] Urksvrdaro7606 [place] [address]Dr. Slick Broderick MANUAL DIFF REQ NO Normal [facility] Comment on above: Performed By: #### C BC ####[facility] Mfduqaansl[address] [place], [place] [address]Dr. Slick Broderick MCH (RBC) [Entitic mass] 31.0 pg Normal 26.7-34.0 [facility] Comment on above: Performed By: #### C BC ####[facility] Iniokgkyjj5024 [place] [address]Dr. Slick Broderick MCHC (RBC) [Mass/Vol] 31.5 g/dL Normal 29.9-35.2 [facility] Comment on above: Performed By: #### C BC ####[facility] Cvvdmiquog7443 [place] [phone]. Slick Broderick MCV (RBC) [Entitic vol] 98.2 fL Normal 81.0-99.0 [facility] Comment on above: Performed By: #### C BC ####[facility] Msjtnzfrol1571 [place] [phone]. Slick Broderick MONO # 0.8 103/ul Normal 0.3-0.8 [facility] Comment on above: Performed By: #### C BC ####[facility] Ytjpdvfzsv5976 [place] [phone]. Slick Broderick Monocytes/100 WBC (Bld) 11.4 % Normal 1.7-12.0 [facility] Comment on above: Performed By: #### C BC ####[facility] Baecqoewar[address] [place], [place] [address]Dr. Slick Broderick NEUT # 4.8 103/ul Normal 1.4-6.5 [facility] Comment on above: Performed By: #### C BC ####[facility] Yrlfonjrkf[address] [place], [place] [id number]. Slick Broderick Neutrophils/100 WBC (Bld) 69.0 % Normal 43.0-75.0 [facility] Comment on above: Performed By: #### C BC ####[facility] Xjowcnkzma[address] [place], [place] [id number]. Slick Broderick Platelet mean volume (Bld) [Entitic vol] 9.3 fL Critically low 9.5-13.5 [facility] Comment on above: Performed By: #### C BC ####[facility] Vpbhztppqj43[address] [place], [place] [id number]. Slick Broderick PLT 229 103/ul Normal 150-450 [facility] Comment on above: Performed By: #### C BC ####[facility] Frhxbpuzci4899[address] [place], [place] [id number]. Slick Broderick RBC 2.81 106/ul Critically low 4.20-5.[address] [facility] Comment on above: Performed By: #### C BC ####[facility] Iktmdbzgtp2367 [place] [address]Dr. Slick Broderick WBC 7.0 103/ul Normal 4.0-11.0 [facility] Comment on above: Performed By: #### C BC ####[facility] Plksqpnave6406 [place] [address]Dr. Slick Broderick POINT OF CARE GLUCOSEon 07 Glucose [Mass/Vol] 255 mg/dL Critically high 74-106 T [facility] Comment on above: Performed By: #### P OCGLUC ####[facility] Clpaoyqzww0044 [place] [address]Dr. Slick Broderick PROF 14(COMP METB)on 022 Albumin [Mass/Vol] 2.3 g/dL Critically low 3.4-5.0 [facility] [place] [facility] Comment on above: Performed By: #### C MP, BNP ####[facility] Veulxxlrys1627 [place] [address]Dr. Slick Broderick Albumin/Globulin [Mass ratio] 0.6 {ratio} Normal [facility] Comment on above: Performed By: #### C MP, BNP ####[facility] Hmmxdzpwvt7920 [place] [address]Dr. Slick Broderick ALP [Catalytic activity/Vol] 94 U/L Normal 46-116 [facility] Comment on above: Performed By: #### C MP, BNP ####[facility] Ibsgokyuqf0466 [place] [address]Dr. Slick Broderick ALT [Catalytic activity/Vol] 17 U/L Normal 14-59 [facility] Comment on above: Performed By: #### C MP, BNP ####[facility] Ywawkxjyzp7447 [place] [address]Dr. Slick Broderick Anion gap [Moles/Vol] 11.6 mmol/L Normal [facility] Comment on above: Performed By: #### C MP, BNP ####[facility] Qyxafrjppe9540 [place] [address]Dr. Slick Broderick AST [Catalytic activity/Vol] 13 U/L Critically low 15-37 [facility] Comment on above: Performed By: #### C MP, BNP ####[facility] Xtmxdcpxqp1208 [place] [address]Dr. Slick Davie Bilirubin [Mass/Vol] 0.3 mg/dL Normal 0.2-1.0 [facility] Comment on above: Performed By: #### C MP, BNP ####[facility] Yvpbcijwgo197[address] [place], [place] [address]Dr. Slick Broderick Calcium [Mass/Vol] 7.9 mg/dL Critically low 8.5-10.1 Th e [facility] Comment on above: Performed By: #### C MP, BNP ####[facility] Ojgytvqtpb[address] [place], [place] [address]Dr. Meaganwendie Broderick Chloride [Moles/Vol] 104 mmol/L Normal 98-107 [facility] Comment on above: Performed By: #### C MP, BNP ####[facility] Apribnxsuh29[address] [place], [place] [address]Dr. Meaganwendie Broderick CO2 [Moles/Vol] 25.1 mmol/L Normal 21.0-32.0 [facility] Comment on above: Performed By: #### C MP, BNP ####[facility] Caooorgfbz7940[address] [place], [place] [address]Dr. Meaganwendie Broderick Creatinine [Mass/Vol] 1.64 mg/dL Critically high 0.55-1.02 [facility] Comment on above: Performed By: #### C MP, BNP ####[facility] Kkmgvgauqu027[address] [place], [place] [address]Dr. Slick Davie EGFR-AF SUDANESE 37 mL/min/1.73m2 Critically low >=60 [facility] Comment on above: Performed By: #### C MP, BNP ####[facility] Mjynghzvmv8[address] [place], [place] [address]Dr. Slick Broderick EGFR-NON AF SUDANESE 31 mL/min/1.73m2 Critically low >=60 [facility] Comment on above: Performed By: #### C MP, BNP ####[facility] Smmhiciiqa045[address] [place], [place] [address]Dr. Slick Broderick Globulin (S) [Mass/Vol] 3.6 g/dL Normal [facility] Comment on above: Performed By: #### C MP, BNP ####[facility] Mhbymbxqfl4015 [place] [address]Dr. Slick Broderick Glucose [Mass/Vol] 100 mg/dL Normal 74-106 [facility] Comment on above: Performed By: #### C MP, BNP ####[facility] Yhlpgmrelm2152 [place] [address]Dr. Slick Broderick Potassium [Moles/Vol] 4.7 mmol/L Normal 3.5-5.1 [facility] Comment on above: Performed By: #### C MP, BNP ####[facility] Uplhhgcosh59[address] [place], [place] [address]Dr. Slick Broderick Protein [Mass/Vol] 5.9 g/dL Critically low 6.4-8.2 Th [facility] Comment on above: Performed By: #### C MP, BNP ####[facility] Imylnomqmi16[address] [place], [place] [address]Dr. Slick Broderick Sodium [Moles/Vol] 136 mmol/L Normal 136-145 [facility] Comment on above: Performed By: #### C MP, BNP ####[facility] Auqdqgvqyd9[address] [place], [place] [address]Dr. Slick Broderick Urea nitrogen [Mass/Vol] 27.0 mg/dL Critically high 7.0-18.0 [facility] Comment on above: Performed By: #### C MP, BNP ####[facility] Clbdlrpbms[address] [place], [place] [address]Dr. Slick Broderick Urea nitrogen/Creatinine [Mass ratio] 16.5 mg/mg Normal [facility] Comment on above: Performed By: #### C MP, BNP ####[facility] Ojilwwzqbh914[address] [place], [place] [address]Dr. Slick Broderick CBC AUTO DIFFon 12-13-2021 BASO # 0.0 103/ul Normal 0.0-0.1 [facility] Comment on above: Performed By: #### C BC ####[facility] Uhxpjfyifk7390 [place] [phone]. Slick Broderick Basophils/100 WBC (Bld) 0.5 % Normal 0.2-2.0 [facility] Comment on above: Performed By: #### C BC ####[facility] Ywkikeuooq2095 [place] [phone]. Slick Broderick EO # 0.3 103/ul Normal 0.0-0.7 [facility] Comment on above: Performed By: #### C BC ####[facility] Cofiaobhen1140 [place] [phone]. Slick Broderick Eosinophils/100 WBC (Bld) 4.4 % Normal 0.9-7.0 [facility] Comment on above: Performed By: #### C BC ####[facility] Utpgptnzse[address] [place], [place] [address]Dr. Slick Broderick Erythrocyte distribution width (RBC) [Ratio] 20.5 % Critically high 11.0-15.0 [facility] Comment on above: Performed By: #### C BC ####[facility] Nhivcdqxcx8[address] [place], [place] [id number]. Slick Broderick Hematocrit (Bld) [Volume fraction] 29.5 % Critically low 36.0-48.0 [facility] Comment on above: Performed By: #### C BC ####[facility] Abttctmgau6510 [place] [phone]. Slick Broderick Hemoglobin (Bld) [Mass/Vol] 9.3 g/dL Critically low 12.0-16.0 [facility] Comment on above: Result Comment: post transfusion Performed By: #### C BC ####[facility] Rwrdtqltnq9071 [place] [phone]. Slick Broderick IG # 0.07 10e3/ul Critically high 0.00-0.03 [facility] Comment on above: Performed By: #### C BC ####[facility] Zwflufrvwv5008 [place] [phone]. Slick Broderick IG % 0.9 % Critically high 0.0-0.5 [facility] Comment on above: Performed By: #### C BC ####[facility] Dygqadlqdk3532 [place] [phone]. Meaganwendie Davie LYMPH # 0.9 103/ul Critically low 1.2-3.8 [facility] Comment on above: Performed By: #### C BC ####[facility] Vakshhxoeu2038 [place] [phone]. Slick Broderick Lymphocytes/100 WBC (Bld) 11.5 % Critically low 20.5-60.0 [facility] Comment on above: Performed By: #### C BC ####[facility] Vodkryxrje4666 [place] [phone]. Slick Broderick MANUAL DIFF REQ NO Normal [facility] Comment on above: Performed By: #### C BC ####[facility] Knqjpeqjzi5894 [place] [phone]. Slick Broderick MCH (RBC) [Entitic mass] 30.9 pg Normal 26.7-34.0 [facility] Comment on above: Performed By: #### C BC ####[facility] Eanenxbter8634 [place] [phone]. Slick Broderick MCHC (RBC) [Mass/Vol] 31.5 g/dL Normal 29.9-35.2 [facility] Comment on above: Performed By: #### C BC ####[facility] Snopatukks2753 [place] [phone]. Slick Broderick MCV (RBC) [Entitic vol] 98.0 fL Normal 81.0-99.0 [facility] Comment on above: Performed By: #### C BC ####[facility] Szcqgxwodg1110 [place] [phone]. Slick Broderick MONO # 0.6 103/ul Normal 0.3-0.8 [facility] Comment on above: Performed By: #### C BC ####[facility] Iyyttxbaai4928 [place] [phone]. Slick Broderick Monocytes/100 WBC (Bld) 8.6 % Normal 1.7-12.0 [facility] Comment on above: Performed By: #### C BC ####[facility] Rwimgmfogf9174 [place] [phone]. Slick Broderick NEUT # 5.5 103/ul Normal 1.4-6.5 [facility] Comment on above: Performed By: #### C BC ####[facility] Glrpbybatm6042 [place] [phone]. Slick Broderick Neutrophils/100 WBC (Bld) 74.1 % Normal 43.0-75.0 [facility] Comment on above: Performed By: #### C BC ####[facility] Smgstmterz4819 [place] [phone]. Slick Broderick Platelet mean volume (Bld) [Entitic vol] 9.0 fL Critically low 9.5-13.5 [facility] Comment on above: Performed By: #### C BC ####[facility] Cgqvpyhszx3545 [place] [address]Dr. Slick Broderick PLT 231 103/ul Normal 150-450 [facility] Comment on above: Performed By: #### C BC ####[facility] Hgxqczkxbe9738 [place] [phone]. Slick Broderick RBC 3.01 106/ul Critically low 4.20-5.[address] [facility] Comment on above: Performed By: #### C BC ####[facility] Plzscwvxlc7273 [place] [address]Dr. Slick Broderick WBC 7.5 103/ul Normal 4.0-11.0 [facility] Comment on above: Performed By: #### C BC ####[facility] Ejrlzqcfkl[address] [place], [place] [phone]. Slick Broderick BASO # 0.0 103/ul Normal 0.0-0.1 [facility] Comment on above: Performed By: #### C BC ####[facility] Srogtpiuhx1701 [place] [phone]. Slick Broderick Basophils/100 WBC (Bld) 0.3 % Normal 0.2-2.0 [facility] Comment on above: Performed By: #### C BC ####[facility] Docwhqqsab8474 [place] [phone]. Slick Broderick EO # 0.3 103/ul Normal 0.0-0.7 [facility] Comment on above: Performed By: #### C BC ####[facility] Qlkohdmwlw1082 [place] [phone]. Slick Broderick Eosinophils/100 WBC (Bld) 3.8 % Normal 0.9-7.0 [facility] Comment on above: Performed By: #### C BC ####[facility] Juunleypso3408 [place] [address]Dr. Slick Broderick Erythrocyte distribution width (RBC) [Ratio] 17.4 % Critically high 11.0-15.0 [facility] Comment on above: Performed By: #### C BC ####[facility] Dpnbexuwwh[address] [place], [place] [address]Dr. Slick Broderick Hematocrit (Bld) [Volume fraction] 22.4 % Critically low 36.0-48.0 [facility] Comment on above: Result Comment: Test Repeated Critical Value Verified Performed By: #### C BC ####[facility] Evvkgrdsjm[address] [place], [place] [address]Dr. Slick Broderick Hemoglobin (Bld) [Mass/Vol] 7.1 g/dL Critically low 12.0-16.0 [facility] Comment on above: Performed By: #### C BC ####[facility] Fxisqxbrus9055 [place] [address]Dr. Slick Broderick IG # 0.06 10e3/ul Critically high 0.00-0.03 [facility] Comment on above: Performed By: #### C BC ####[facility] Exaxidqjgi4092 [place] [address]Dr. Slick Broderick IG % 0.8 % Critically high 0.0-0.5 [facility] Comment on above: Performed By: #### C BC ####[facility] Tyxkevyjhj5090 [place] [address]Dr. Slick Broderick LYMPH # 0.8 103/ul Critically low 1.2-3.8 [facility] Comment on above: Performed By: #### C BC ####[facility] Roatioeedg3711 [place] [phone]. Meaganwendie Broderick Lymphocytes/100 WBC (Bld) 10.7 % Critically low 20.5-60.0 [facility] Comment on above: Performed By: #### C BC ####[facility] Aroiwgdwqn2595 [place] [id number] Broderick MANUAL DIFF REQ NO Normal [facility] Comment on above: Performed By: #### C BC ####[facility] Zwofytoidi1646 [place] [phone]. Slick Broderick MCH (RBC) [Entitic mass] 32.3 pg Normal 26.7-34.0 [facility] Comment on above: Performed By: #### C BC ####[facility] Abomsmszsz3573 [place] [phone]. Slick Broderick MCHC (RBC) [Mass/Vol] 31.7 g/dL Normal 29.9-35.2 [facility] Comment on above: Performed By: #### C BC ####[facility] Qdlaqvocdi7568 [place] [phone] Broderick MCV (RBC) [Entitic vol] 101.8 fL Critically high 81.0-99.0 [facility] Comment on above: Performed By: #### C BC ####[facility] Fzopyqdrue2971 [place] [phone]. Slick Broderick MONO # 0.8 103/ul Normal 0.3-0.8 [facility] Comment on above: Performed By: #### C BC ####[facility] Fbbwawaahn3573 [place] [phone] Broderick Monocytes/100 WBC (Bld) 10.7 % Normal 1.7-12.0 [facility] Comment on above: Performed By: #### C BC ####[facility] Qdyvdsqejv7809 [place] [phone] Broderick NEUT # 5.6 103/ul Normal 1.4-6.5 [facility] Comment on above: Performed By: #### C BC ####[facility] Wbylctcrdk2961 [place] [phone]. Meaganwendie Davie Neutrophils/100 WBC (Bld) 73.7 % Normal 43.0-75.0 [facility] Comment on above: Performed By: #### C BC ####[facility] Pvuzupkqxn1669 [place] [phone]. Slick Broderick Platelet mean volume (Bld) [Entitic vol] 9.4 fL Critically low 9.5-13.5 [facility] Comment on above: Performed By: #### C BC ####[facility] Xjjcmzvetc6213 [place] [phone]. Slick Broderick PLT 209 103/ul Normal 150-450 [facility] Comment on above: Performed By: #### C BC ####[facility] Mhgvpmnbru0920 [place] [phone]. Slick Broderick RBC 2.20 106/ul Critically low 4.20-5.40 [facility] Comment on above: Performed By: #### C BC ####[facility] Hqnawswoac7236 [place] [phone]. Slick Broderick WBC 7.6 103/ul Normal 4.0-11.0 [facility] Comment on above: Performed By: #### C BC ####[facility] Mqhblwjbhp3561 [place] [phone] Broderick PROF 14(COMP METB)on 022 Albumin [Mass/Vol] 2.1 g/dL Critically low 3.4-5.0 [facility] Comment on above: Performed By: #### C MP ####[facility] Sxfbcqesuv3766 [place] [phone] Broderick Albumin/Globulin [Mass ratio] 0.7 {ratio} Normal [facility] Comment on above: Performed By: #### C MP ####[facility] Rbwvxrrevw6111 [place] [phone] Broderick ALP [Catalytic activity/Vol] 83 U/L Normal 46-116 [facility] Comment on above: Performed By: #### C MP ####[facility] Uyzwptccut2834 [place] [phone]. Slick Broderick ALT [Catalytic activity/Vol] 12 U/L Critically low 14-59 [facility] Comment on above: Performed By: #### C MP ####[facility] Bydnxzjaha4409 [place] [phone]. Slick Broderick Anion gap [Moles/Vol] 14.0 mmol/L Normal [facility] Comment on above: Performed By: #### C MP ####[facility] Ugqwxqxqlu4189 [place] [phone]. Slick Broderick AST [Catalytic activity/Vol] 13 U/L Critically low 15-37 [facility] Comment on above: Performed By: #### C MP ####[facility] Ckxmkxypce0977 [place] [address]Dr. Slick Davie Bilirubin [Mass/Vol] 0.3 mg/dL Normal 0.2-1.0 [facility] Comment on above: Performed By: #### C MP ####[facility] Bbdyosourx5028 [place] [phone]. Slick Davie Calcium [Mass/Vol] 7.4 mg/dL Critically low 8.5-10.1 [facility] Comment on above: Performed By: #### C MP ####[facility] Ywflvjwmak2743 [place] [phone]. Slick Davie Chloride [Moles/Vol] 105 mmol/L Normal 98-107 [facility] Comment on above: Performed By: #### C MP ####[facility] Jiztfuyznx1116 [place] [phone]. Slick Broderick CO2 [Moles/Vol] 23.0 mmol/L Normal 21.0-32.0 [facility] Comment on above: Performed By: #### C MP ####[facility] Txhjizomkf1262 [place] [phone]. Slick Davie Creatinine [Mass/Vol] 1.80 mg/dL Critically high 0.55-1.02 [facility] Comment on above: Performed By: #### C MP ####[facility] Gptbsoycjw5579 [place] [phone]. Slick Broderick EGFR-AF SUDANESE 33 mL/min/1.73m2 Critically low >=60 [facility] Comment on above: Performed By: #### C MP ####[facility] Kbsvmrooyq1135 [place] [phone]. Slick Broderick EGFR-NON AF SUDANESE 28 mL/min/1.73m2 Critically low >=60 [facility] Comment on above: Performed By: #### C MP ####[facility] Llbyhnlgzr1532 [place] [address]Dr. Slick Davie Globulin (S) [Mass/Vol] 3.2 g/dL Normal [facility] Comment on above: Performed By: #### C MP ####[facility] Bxkitkuuao9693 [place] [address]Dr. Slick Davie Glucose [Mass/Vol] 85 mg/dL Normal 74-106 [facility] Comment on above: Performed By: #### C MP ####[facility] Mdxltbqikx4789 [place] [phone]. Slick Davie Potassium [Moles/Vol] 5.0 mmol/L Normal 3.5-5.1 [facility] Comment on above: Performed By: #### C MP ####[facility] Vulyucdbsf9970 [place] [address]Dr. Slick Broderick Protein [Mass/Vol] 5.3 g/dL Critically low 6.4-8.2 [facility] Comment on above: Performed By: #### C MP ####[facility] Iqjvslpirp8687 [place] [address]Dr. Slick Broderick Sodium [Moles/Vol] 137 mmol/L Normal 136-145 [facility] Comment on above: Performed By: #### C MP ####[facility] Igdnmhvpvl0445 [place] [phone]. Slick Davie Urea nitrogen [Mass/Vol] 30.0 mg/dL Critically high 7.0-18.0 [facility] Comment on above: Performed By: #### C MP ####[facility] Pmpgthkrdn[address] [place], [place] [address]Dr. Slick Broderick Urea nitrogen/Creatinine [Mass ratio] 16.7 mg/mg Normal [facility] Comment on above: Performed By: #### C MP ####[facility] Nrwvztdcvj9[address] [place], [place] [address]Dr. Slick Broderick ABO RH RETYPEon 12-12-2021 ABO and Rh group Nom (Bld) DONE Normal [facility] Comment on above: Performed By: #### R ETYPE ####[facility] Cskgrjbgti[address] [place], [place] [address]Dr. Slick Broderick BNPon 12-12-2021 Natriuretic peptide B (Bld) [Mass/Vol] 952.0 pg/mL Critically high <=900.0 [facility] Comment on above: Performed By: #### B FUNERAL LOCATION MANAGER, CRP, CMP ####[facility] Kwvuatwsod[address] [place], [place] [address]Dr. Slick Broderick CBC AUTO DIFFon 12-12-2021 BASO # 0.0 103/ul Normal 0.0-0.1 [facility] Comment on above: Performed By: #### C BC ####[facility] Iwhnyllxmt[address] [place], [place] [address]Dr. Slick Davie Basophils/100 WBC (Bld) 0.2 % Normal 0.2-2.0 [facility] Comment on above: Performed By: #### C BC ####[facility] Nuhvrwvsyh32[address] [place], [place] [address]Dr. Slick Broderick EO # 0.2 103/ul Normal 0.0-0.7 [facility] Comment on above: Performed By: #### C BC ####[facility] Xqchxmxrst298[address] [place], [place] [address]Dr. Slick Davie Eosinophils/100 WBC (Bld) 2.6 % Normal 0.9-7.0 [facility] Comment on above: Performed By: #### C BC ####[facility] Nyzxfekoar3620 [place] [address]Dr. Slick Broderick Erythrocyte distribution width (RBC) [Ratio] 17.2 % Critically high 11.0-15.0 [facility] Comment on above: Performed By: #### C BC ####[facility] Ujzspfxekb0077 [place] [address]Dr. Slick Broderick Hematocrit (Bld) [Volume fraction] 24.0 % Critically low 36.0-48.0 [facility] Comment on above: Performed By: #### C BC ####[facility] Ddnylmogsx[address] [place], [place] [address]Dr. Slick Broderick Hemoglobin (Bld) [Mass/Vol] 7.7 g/dL Critically low 12.0-16.0 [facility] Comment on above: Performed By: #### C BC ####[facility] Mgrhidflbr[address] [place], [place] [address]Dr. Slick Broderick IG # 0.05 10e3/ul Critically high 0.00-0.03 [facility] Comment on above: Performed By: #### C BC ####[facility] Tnhexjdlkf9[address] [place], [place] [address]Dr. Slick Broderick IG % 0.5 % Normal 0.0-0.5 [facility] Comment on above: Performed By: #### C BC ####[facility] Nujbugkkmn[address] [place], [place] [address]Dr. Slick Broderick LYMPH # 0.7 103/ul Critically low 1.2-3.8 [facility] Comment on above: Performed By: #### C BC ####[facility] Jvesandbsc33[address] [place], [place] [address]Dr. Slick Broderick Lymphocytes/100 WBC (Bld) 7.7 % Critically low 20.5-60.0 [facility] Comment on above: Performed By: #### C BC ####[facility] Khpgllhchu65[address] [place], [place] [address]Dr. Slick Broderick MANUAL DIFF REQ NO Normal [facility] Comment on above: Performed By: #### C BC ####[facility] Uehkiixdai7646 [place] [address]Dr. Slick Broderick MCH (RBC) [Entitic mass] 32.6 pg Normal 26.7-34.0 [facility] Comment on above: Performed By: #### C BC ####[facility] Fpimeftldq4237 [place] [address]Dr. Slick Broderick MCHC (RBC) [Mass/Vol] 32.1 g/dL Normal 29.9-35.2 [facility] Comment on above: Performed By: #### C BC ####[facility] Wpgvsrpobt6[address] [place], [place] [address]Dr. Slick Davie MCV (RBC) [Entitic vol] 101.7 fL Critically high 81.0-99.0 [facility] Comment on above: Performed By: #### C BC ####[facility] Dggvfzofvb20[address] [place], [place] [address]Dr. Slick Davie MONO # 0.8 103/ul Normal 0.3-0.8 [facility] Comment on above: Performed By: #### C BC ####[facility] Qfzrafzgde033[address] [place], [place] [address]Dr. Meaganwendie Broderick Monocytes/100 WBC (Bld) 8.5 % Normal 1.7-12.0 [facility] Comment on above: Performed By: #### C BC ####[facility] Ypjhswqfgx[address] [place], [place] [address]Dr. Slick Broderick NEUT # 7.3 103/ul Critically high 1.4-6.[address] [facility] Comment on above: Performed By: #### C BC ####[facility] Kcestsoszq23[address] [place], [place] [address]Dr. Slick Broderick Neutrophils/100 WBC (Bld) 80.5 % Critically high 43.0-75.0 [facility] Comment on above: Performed By: #### C BC ####[facility] Lthsnsltst[address] [place], [place] [address]Dr. Meaganwendie Davie Platelet mean volume (Bld) [Entitic vol] 8.9 fL Critically low 9.5-13.5 [facility] Comment on above: Performed By: #### C BC ####[facility] Hfuhggeano9364 [place] [phone]. Slick Broderick PLT 204 103/ul Normal 150-450 [facility] Comment on above: Performed By: #### C BC ####[facility] Oycsqqscqy2695 [place], [place] [address]Jk. Slick Broderick RBC 2.36 106/ul Critically low 4.20-5.[address] [facility] Comment on above: Performed By: #### C BC ####[facility] Pgmgpusjlj4700 [place] [phone]. Slick Broderick WBC 9.1 103/ul Normal 4.0-11.0 [facility] Comment on above: Performed By: #### C BC ####[facility] Vrzgdkfeyt9870 [place] [phone]. Slick Broderick CBC W MANUAL DIFFon 12-13-19 22 ATYPICAL LYMPH # Normal [facility] Comment on above: Performed By: #### C BCMAN ####[facility] Udwnamabim7175 [place] [phone]. Slick Broderick ATYPICAL LYMPH % Normal [facility] Comment on above: Performed By: #### C BCMAN ####[facility] Bsmkczipqz5255 [place] [phone]. Slick Broderick BAND # Normal 0.0-0.3 [facility] Comment on above: Performed By: #### C BCMAN ####[facility] Zocvjfvdow5413 [place] [phone]. Meaganlan Broderick BAND % Normal 0-5 [facility] Comment on above: Performed By: #### C BCMAN ####[facility] Umpradajaz9463 [place] [phone]. Slick Broderick BASOM # 0.00 103/ul Normal 0.00-0.10 [facility] Comment on above: Performed By: #### C BCMAN ####[facility] Wmfzjwuruc5351 [place] [phone]. Slick Broderick BASOM % 0.0 % Critically low 0.2-2.0 [facility] Comment on above: Performed By: #### C AIDEN ####[facility] Zykfizbzrm9939 [place] [address]Dr. Slick Broderick BLAST # Normal [facility] Comment on above: Performed By: #### C AIDEN ####[facility] Rahygsghsh7199 [place] [phone]. Slick Broderick BLAST % Normal [facility] Comment on above: Performed By: #### C AIDEN ####[facility] Gkawbhggxx7141 [place] [address]Dr. Slick Broderick CORRECTED WBC Normal 4.0-11.0 [facility] Comment on above: Performed By: #### C AIDEN ####[facility] [address]npdvqdrfa[address] [place], [place] [address]Dr. Slick Broderick EOS # 0.35 103/ul Normal 0.00-0.70 [facility] Comment on above: Performed By: #### C AIDEN ####[facility] Dlofezelhu[address] [place], [place] [address]Dr. Slick Broderick EOS% 3.0 % Normal 0.9-7.0 [facility] Comment on above: Performed By: #### C AIDEN ####[facility] Nwatouhkkz9910 [place] [address]Dr. Slick Broderick HCT 21.4 % Critically low 36.0-48.0 [facility] Comment on above: Result Comment: TEST REPEATED CRITICAL VALUE VERIFIED Performed By: #### C AIDEN ####[facility] Dlstzpztdq1172 [place] [address]Dr. Slick Broderick HGB 6.6 g/dl Critically low 12.0-16.0 [facility] Comment on above: Result Comment: TEST REPEATED CRITICAL VALUE VERIFIED Performed By: #### C AIDEN ####[facility] Uxwphfuijz[address] [place], [place] [address]Dr. Slick Broderick LYMPHM # 0.59 103/ul Critically low 1.20-3.[address] [facility] Comment on above: Performed By: #### C AIDEN ####[facility] Wlkhmhrhkb4798 [place] [phone]. Slick Broderick LYMPHM% 5.0 % Critically low 20.5-60.0 [facility] Comment on above: Performed By: #### C AIDEN ####[facility] Kzkqbotslb3316 [place] [phone]. Slick Broderick MCH 33.2 pg Normal 26.7-34.0 [facility] Comment on above: Performed By: #### C AIDEN ####[facility] Lpguttdkyr2159 [place], [place] [address]Yb. Slick Broderick MCHC 30.8 g/dl Normal 29.9-35.2 [facility] Comment on above: Performed By: #### C AIDEN ####[facility] Uzibxelikh1834 [place] [phone]. Slick Broderick MCV 107.5 fL Critically high 81.0-99.[address] [facility] Comment on above: Result Comment: RBCS APPEAR MACROCYTIC ON PERIPHERAL SMEAR Performed By: #### C AIDEN ####[facility] Aypvoswliv4042 [place] [phone]. Slick Broderick METAMYELOCYTE # Normal [facility] Comment on above: Performed By: #### C AIDEN ####[facility] Fnhhrlevkr6802 [place] [phone]. Slick Broderick METAMYELOCYTE % Normal [facility] Comment on above: Performed By: #### C AIDEN ####[facility] Kbcmcepxgh7043 [place] [phone]. Slick Broderick MONOM# 0.71 103/ul Normal 0.30-0.80 [facility] Comment on above: Performed By: #### C AIDEN ####[facility] Nstmhbotbe1458 [place] [phone]. Slick Broderick MONOM% 6.0 % Normal 1.7-12.0 [facility] Comment on above: Performed By: #### C AIDEN ####[facility] Fshdufbkgp1270 [place] [phone]. Slick Broderick MPV 9.2 fL Critically low 9.5-13.5 [facility] Comment on above: Performed By: #### C AIDEN ####[facility] Mnelszccvh7412 [place] [address]Dr. Slick Broderick MYELOCYTE # Normal [facility] Comment on above: Performed By: #### C AIDEN ####[facility] Wyrebvpaot2353 [place] [phone]. Slick Broderick MYELOCYTE % Normal [facility] Comment on above: Performed By: #### C AIDEN ####[facility] Xbwibylfkt4306 [place] [phone]. Slick Broderick NRBC Normal [facility] Comment on above: Performed By: #### C AIDEN ####[facility] Oxwijxpgea3063 [place] [phone]. Slick Broderick PLT 232 103/ul Normal 150-450 [facility] Comment on above: Performed By: #### C AIDEN ####[facility] Xioqvnpxdn1961 [place] [phone]. Slick Broderick RBC 1.99 106/ul Critically low 4.20-5.40 [facility] Comment on above: Performed By: #### C AIDEN ####[facility] Pmnodcjuoh8153 [place] [phone]. Slick Broderick RDW 15.6 % Critically high 11.0-15.[address] [facility] Comment on above: Performed By: #### C AIDEN ####[facility] Fnkhbzltsv3907 [place] [phone]. Slick Broderick SEG # 10.15 103/ul Critically high 1.40-6.50 [facility] Comment on above: Performed By: #### C AIDEN ####[facility] Zvtxvgbkrc4591 [place] [phone]. Slick Broderick SEG % 86.0 % Critically high 43.0-75.[address] [facility] Comment on above: Performed By: #### C AIDEN ####[facility] Qtdveosfea[address] [place], [place] [phone]. Slick Broderick WBC 11.8 103/ul Critically high 4.0-11.0 The [facility] Comment on above: Performed By: #### C BCMAN ####[facility] Lujgbxjbnx9699 [place], [place] [address]Vn. Slick Broderick CRPon 12-12-2021 CRP 10.1 mg/dL Critically high <=1.[address] [facility] Comment on above: Performed By: #### B FUNERAL LOCATION MANAGER, CRP, CMP ####[facility] Ibspwisyyu8764 [place], [place] [address]Pd. Slick Broderick CULTURE BLOODon 12-12-2021 Microscopic examination of blood, culture Culture Observations: NO GROWTH AT 5 DAYS. Normal [facility] Comment on above: Performed By: #### B LDCX2 ####[facility] Ywrufevrpa4274 [place], [place] [address]Vc. Slick Broderick Microscopic examination of blood, culture Culture Observations: NO GROWTH AT 5 DAYS. Normal [facility] Comment on above: Performed By: #### B LDCX1 ####[facility] Soqfdywadw5365 [place], [place] [address]Ar. Slick Broderick CULTURE URINEon 12-12-2021 CULTURE URINE Culture Observations : NO GROWTH. Normal [facility] Comment on above: Performed By: #### U RCX ####[facility] Gplonygfbu2974 [place] [phone]. Slick Broderick Covid-19 PCR (CVDTB)on SARS-CoV-2 (COVID-19) RNA DONNIE+probe Ql (Unsp spec) Not detected Normal NOT DETECTED [facility] Comment on above: Result Comment: When diagnostic [...] for this test is supported by the [place] of Health and Human Service's declaration that [...] be used). Performed By: #### C VDTB ####[facility] Ejwkxeuifw3215 [place] [address]Dr. Slick Broderick ER URINE PROFILEon 2 Bilirubin Ql (U) Negative Normal NEGATIVE [facility] Comment on above: Performed By: #### U MICRO, ERUR ####[facility] Snmnjkgtsr[address] [place], [place] [address]Dr. Slick Broderick Clarity (U) CLOUDY Abnormal CLEAR [facility] Comment on above: Performed By: #### U MICRO, ERUR ####[facility] Qgacyskiwr4[address] [place], [place] [address]Dr. Slick Broderick Color (U) LT. YELLOW Normal YELLOW [facility] Comment on above: Performed By: #### U MICRO, ERUR ####[facility] C[address]fzzapmi[address] [place], [place] [address]Dr. Meaganwendie Broderick ERUAHD A micrscopic examination will be performed if indicated. Normal [facility] Comment on above: Performed By: #### U MICRO, ERUR ####[facility] Qasbradjgr8747 [place] [address]Dr. Meaganwendie Broderick Glucose Ql (U) Negative Normal NEGATIVE [facility] Comment on above: Performed By: #### U MICRO, ERUR ####[facility] Ktufjrbffo3402 [place] [address]Dr. Meaganwendie Broderick Hemoglobin Ql (U) Negative Normal NEGATIVE [facility] Comment on above: Performed By: #### U MICRO, ERUR ####[facility] Soeofmjwos6511 [place] [address]Dr. Slick Broderick Ketones Ql (U) Negative Normal NEGATIVE [facility] Comment on above: Performed By: #### U MICRO, ERUR ####[facility] Nsqckirxsa4102 [place] [address]Dr. Slick Broderick LEUKOCYTES MODERATE Abnormal NEGATIVE [facility] Comment on above: Performed By: #### U MICRO, ERUR ####[facility] Uueorwspwq1087 [place] [address]Dr. Slick Broderick Nitrite Ql (U) Negative Normal NEGATIVE [facility] Comment on above: Performed By: #### U MICRO, ERUR ####[facility] Gmuymicbey2665 [place] [address]Dr. Slick Broderick pH (U) 6.0 [pH] Normal 5-9 [facility] Comment on above: Performed By: #### U MICRO, ERUR ####[facility] [address]rbzlqsmep[address] [place], [place] [address]Dr. Slick Broderick SPEC GRAVITY 1.010 Normal 1.005-<=1.[address] [facility] Comment on above: Performed By: #### U MICRO, ERUR ####[facility] Nnvmcefupg8[address] [place], [place] [address]Dr. Slick Broderick UA PROTEIN Negative Normal NEGATIVE/ TRACE [facility] Comment on above: Performed By: #### U MICRO, ERUR ####[facility] Cribfxyzxi[address] [place], [place] [address]Dr. Slick Broderick UR MICRO IND INDICATED Normal [facility] Comment on above: Performed By: #### U MICRO, ERUR ####[facility] Lmubjglygh[address] [place], [place] [address]Dr. Slick Broderick Urobilinogen Qn (U) 0.2 {Hiren'U}/dL Normal 0.2 - 1. 0 [facility] Comment on above: Performed By: #### U MICRO, ERUR ####[facility] Oeeotobzel[address] [place], [place] [address]Dr. Slick Broderick IRON AND TIBCon 12-12-2021 % SATURATION 7.0 % Normal [facility] Comment on above: Performed By: #### B 12FOL, FETIBC ####[facility] Stiyumtmem[address] [place], [place] [address]Dr. Slick Broderick Iron [Mass/Vol] 18.0 ug/dL Critically low 50.0-170.0 [facility] Comment on above: Performed By: #### B 12FOL, FETIBC ####[facility] Jvyjxybgkm6491 [place] [address]Dr. Slick Broderick TIBC DIRECT 257.0 ug/dL Normal 250.0-450.0 [facility] Comment on above: Performed By: #### B 12FOL, FETIBC ####[facility] Rcrjqymrzr5834 [place] [address]Dr. Slick Broderick LACTATE/LACTIC ACIDon 2021 Lactate [Moles/Vol] 0.7 mmol/L Normal 0.4-1.9 [facility] Comment on above: Performed By: #### L ACT ####[facility] [address]ypc[address]irp[address] [place], [place] [address]Dr. Slick Broderick OCC BLD IMMUNO SCREENon OCCULT BLOOD Negative Normal NEGATIVE [facility] Comment on above: Performed By: #### O BSCRN ####[facility] [address]cj[address] [place] [address]Dr. Slick Broderick PROF 14(COMP METB)on 022 Albumin [Mass/Vol] 2.6 g/dL Critically low 3.4-5.0 [facility] [place] [facility] Comment on above: Performed By: #### B FUNERAL LOCATION MANAGER, CRP, CMP ####[facility] Ndihlqatci[address] [place] [address]Dr. Slick Broderick Albumin/Globulin [Mass ratio] 0.7 {ratio} Normal [facility] Comment on above: Performed By: #### B FUNERAL LOCATION MANAGER, CRP, CMP ####[facility] Rvxyctabxo[address] [place] [address]Dr. Slick Broderick ALP [Catalytic activity/Vol] 105 U/L Normal 46-116 [facility] Comment on above: Performed By: #### B FUNERAL LOCATION MANAGER, CRP, CMP ####[facility] Wejhbujjwg[address] [place] [address]Dr. Slick Broderick ALT [Catalytic activity/Vol] 16 U/L Normal 14-59 [facility] Comment on above: Performed By: #### B FUNERAL LOCATION MANAGER, CRP, CMP ####[facility] Pdxhlyrjls[address] [place] [address]Dr. Slick Broderick Anion gap [Moles/Vol] 11.7 mmol/L Normal [facility] Comment on above: Performed By: #### B FUNERAL LOCATION MANAGER, CRP, CMP ####[facility] [address] [place], [place] [address]Dr. Slick Broderick AST [Catalytic activity/Vol] 11 U/L Critically low 15-37 [facility] Comment on above: Performed By: #### B FUNERAL LOCATION MANAGER, CRP, CMP ####[facility] [address] [place], [place] [address]Dr. Slick Broderick Bilirubin [Mass/Vol] 0.3 mg/dL Normal 0.2-1.0 [facility] Comment on above: Performed By: #### B FUNERAL LOCATION MANAGER, CRP, CMP ####[facility] [address] [place], [place] [address]Dr. Slick Broderick Calcium [Mass/Vol] 7.8 mg/dL Critically low 8.5-10.1 [facility] Comment on above: Performed By: #### B FUNERAL LOCATION MANAGER, CRP, CMP ####[facility] Cpavmonuca[address] [place], [place] [address]Dr. Slick Broderick Chloride [Moles/Vol] 105 mmol/L Normal 98-107 [facility] Comment on above: Performed By: #### B FUNERAL LOCATION MANAGER, CRP, CMP ####[facility] [address]ec[address] [place], [place] [address]Dr. Slick Broderick CO2 [Moles/Vol] 24.2 mmol/L Normal 21.0-32.0 [facility] Comment on above: Performed By: #### B FUNERAL LOCATION MANAGER, CRP, CMP ####[facility] [address] [place], [place] [address]Dr. Slick Broderick Creatinine [Mass/Vol] 1.96 mg/dL Critically high 0.55-1.02 [facility] Comment on above: Performed By: #### B FUNERAL LOCATION MANAGER, CRP, CMP ####[facility] Zdtdpnmeut[address] [place] [id number]. Slick Broderick EGFR-AF SUDANESE 30 mL/min/1.73m2 Critically low >=60 [facility] Comment on above: Performed By: #### B FUNERAL LOCATION MANAGER, CRP, CMP ####[facility] Hazwldjpym[address] [place] [address]Dr. Slick Broderick EGFR-NON AF SUDANESE 25 mL/min/1.73m2 Critically low >=60 [facility] Comment on above: Performed By: #### B FUNERAL LOCATION MANAGER, CRP, CMP ####[facility] Bkehnnfycm[address] [place] [address]Dr. Slick Broderick Globulin (S) [Mass/Vol] 3.8 g/dL Normal [facility] Comment on above: Performed By: #### B FUNERAL LOCATION MANAGER, CRP, CMP ####[facility] [address]up[address] [place], [place] [address]Dr. Slick Broderick Glucose [Mass/Vol] 91 mg/dL Normal 74-106 [facility] Comment on above: Performed By: #### B FUNERAL LOCATION MANAGER, CRP, CMP ####[facility] [address]xbsjerc[address] [place], [place] [address]Dr. Slick Broderick Potassium [Moles/Vol] 4.9 mmol/L Normal 3.5-5.1 [facility] Comment on above: Performed By: #### B FUNERAL LOCATION MANAGER, CRP, CMP ####[facility] Ftpactwaiw[address] [place], [place] [address]Dr. Slick Broderick Protein [Mass/Vol] 6.4 g/dL Normal 6.4-8.2 [facility] Comment on above: Performed By: #### B FUNERAL LOCATION MANAGER, CRP, CMP ####[facility] [address]rw[address] [place], [place] [address]Dr. Slick Broderick Sodium [Moles/Vol] 136 mmol/L Normal 136-145 [facility] Comment on above: Performed By: #### B FUNERAL LOCATION MANAGER, CRP, CMP ####[facility] Atdhtlnkyc[address] [place], [place] [address]Dr. Slick Broderick Urea nitrogen [Mass/Vol] 32.0 mg/dL Critically high 7.0-18.0 [facility] Comment on above: Performed By: #### B FUNERAL LOCATION MANAGER, CRP, CMP ####[facility] Rwnhdxyrco[address] [place] [address]Dr. Slick Broderick Urea nitrogen/Creatinine [Mass ratio] 16.3 mg/mg Normal [facility] Comment on above: Performed By: #### B FUNERAL LOCATION MANAGER, CRP, CMP ####[facility] Gqcqqyztab4[address] [place] [address]Dr. Slick Broderick TYPE AND SCREENon 12-12-2021 TYPE AND SCREEN Negative Normal [facility] Comment on above: Performed By: #### T NS ####[facility] [address]nerqrepo[address] [place], [place] [address]Dr. Slick Broderick URINE MICROSCOPIC ONLYon BACTERIA SMALL Abnormal NONE SEEN [facility] Comment on above: Performed By: #### U MICRO, ERUR ####[facility] [address]phwz[address] [place], [place] [address]Dr. Slick Broderick Bacteria identified Cx Nom (U) INDICATED Normal [facility] Comment on above: Performed By: #### U MICRO, ERUR ####[facility] [address]am[address]cyt[address] [place], [place] [address]Dr. Slick Broderick CAST NONE SEEN Normal NONE SEEN [facility] Comment on above: Performed By: #### U MICRO, ERUR ####[facility] [address]fa[address] [place], [place] [address]Dr. Slick Broderick Crystals LM Nom (Urine sed) NONE SEEN Normal NONE SEEN [facility] Comment on above: Performed By: #### U MICRO, ERUR ####[facility] [address]osoyszhd[address] [place] [address]Dr. Slick Broderick Epithelial cells LM Ql (Urine sed) MANY Abnormal NONE SEEN /RARE [facility] Comment on above: Performed By: #### U MICRO, ERUR ####[facility] [address] [place], [place] [address]Dr. Slick Broderick MUCOUS TRACE Abnormal NONE SEEN [facility] Comment on above: Performed By: #### U MICRO, ERUR ####[facility] Hkwsmatayu[address] [place] [id number]. Slick Broderick RBC 0-2 Normal 0-2 [facility] Comment on above: Performed By: #### U MICRO, ERUR ####[facility] Dvnduesmcb[address] [place] [address]Dr. Slick Broderick WBC 2-5 Abnormal NONE SEEN [facility] Comment on above: Performed By: #### U MICRO, ERUR ####[facility] Rtzhrhvlvt5[address] [place] [id number]. Slick Broderick VIT B12 AND FOLATEon 022 Cobalamin (Vitamin B12) [Mass/Vol] 753.0 pg/mL Normal 193.0-986.0 [facility] Comment on above: Performed By: #### B 12FOL, FETIBC ####[facility] [address]rougowwdy[address] [place] [address]Dr. Meaganwendie Broderick FOLATE 20.20 ng/mL Normal 8.60-58.90 [facility] Comment on above: Performed By: #### B 12FOL, FETIBC ####[facility] X[address]qpvjf[address] [place] [address]Dr. Meaganwendie Broderick XR CHEST 1 Von 12-12-2021 XR CHEST 1 V Normal [facility] XR KNEE LT 3Von 12-12-2021 XR KNEE LT 3V Normal [facility] PROF CHEM 8 (BAS METB)on Anion gap [Moles/Vol] 11.4 mmol/L Normal [facility] Comment on above: Performed By: #### B MP ####[facility] Asudiiejdq[address]206 [place] [id number]. Meaganwendie Broderick Calcium [Mass/Vol] 7.4 mg/dL Critically low 8.5-10.1 Th [facility] Comment on above: Performed By: #### B MP ####[facility] S[address]psct[address] [place] [address]Dr. Slick Broderick Chloride [Moles/Vol] 109 mmol/L Critically high 98-107 [facility] Comment on above: Performed By: #### B MP ####[facility] Ijlvrygbpm7473 [place] [id number]. Slick Broderick CO2 [Moles/Vol] 26.6 mmol/L Normal 21.0-32.0 [facility] Comment on above: Performed By: #### B MP ####[facility] Hapskhuvpw26[address] [place] [id number]. Slick Broderick Creatinine [Mass/Vol] 1.16 mg/dL Critically high 0.55-1.02 [facility] Comment on above: Performed By: #### B MP ####[facility] Zgfcogkgpf8268 [place] [id number]. Slick Davie EGFR-AF SUDANESE 56 mL/min/1.73m2 Critically low >=60 [facility] Comment on above: Performed By: #### B MP ####[facility] N[address] [place], [place] [address]Dr. Meaganwendie Davie EGFR-NON AF SUDANESE 46 mL/min/1.73m2 Critically low >=60 [facility] Comment on above: Performed By: #### B MP ####[facility] Nvyhrcwywo[address] [place] [address]Dr. Slick Broderick Glucose [Mass/Vol] 128 mg/dL Critically high 74-106 [facility] Comment on above: Performed By: #### B MP ####[facility] Ejnqznhufa[address] [place] [address]Dr. Meaganwendie Broderick Potassium [Moles/Vol] 5.0 mmol/L Normal 3.5-5.1 [facility] Comment on above: Performed By: #### B MP ####[facility] Msurvfzgnm[address] [place] [address]Dr. Meaganwendie Broderick Sodium [Moles/Vol] 142 mmol/L Normal 136-145 [facility] Comment on above: Performed By: #### B MP ####[facility] [address]ci[address] [place], [place] [address]Dr. Slick Broedrick Urea nitrogen [Mass/Vol] 22.0 mg/dL Critically high 7.0-18.0 [facility] Comment on above: Performed By: #### B MP ####[facility] [address] [place], [place] [address]Pt. Slick Broderick Urea nitrogen/Creatinine [Mass ratio] 19.0 mg/mg Normal [facility] Comment on above: Performed By: #### B MP ####[facility] [address] [place], [place] [address]Hy. Slick Broderick XR TIB_FIB LT 2Von 2 XR TIB_FIB LT 2V Normal [facility] CSPINE WO CONon 2 CT CSPINE WO CON Normal [facility] CT HEAD WO CONon 11-29-2021 CT HEAD WO CON Normal [facility] Basic Metabolic Panelon 10-12 Calcium [Mass/Vol] 8.7 mg/dL Normal 8.2-10.2 [facility] Comment on above: Performed By: #### B MP #### [facility] [address] [place] [address] [place] Chloride [Moles/Vol] 100 mmol/L Normal 95-114 [facility] Comment on above: Performed By: #### B MP #### [facility] [address] [place] [address] [place] CO2 [Moles/Vol] 24.9 mmol/L Normal 22.0-30.0 [facility] Comment on above: Performed By: #### B MP #### [facility] [address] [place] [address] [place] Creatinine [Mass/Vol] 0.88 mg/dL Normal 0.44-1.03 [facility] Comment on above: Performed By: #### B MP #### [facility] [address] [place] [address] [place] Creatinine Clr Calc Pharmacy 73.09 Normal [facility] Comment on above: Result Comment: PERF ORMED BY: [place] [address] PATHOLOGIST MARRIAGE AND FAMILY COUNSELOR GERA CASTELLANOS M.D. Performed By: #### B MP #### [facility] [address] [place] [address] [place] Estimated GFR ( Neela > 60 Normal [facility] Comment on above: Result Comment: GFR estimated reference range: According to KDOQI guidelines, <60 ml/min/1.73m2 is sufficient to diagnose a patient with chronic kidney disease. Performed By: #### B MP #### [facility] [address] Estimated GFR (Non- Am > 60 Normal [facility] Comment on above: Performed By: #### B MP #### [facility] [address] Glucose [Mass/Vol] 98 mg/dL Normal 70-100 [facility] Comment on above: Result Comment: [place] Glucose Reference Range is dependent on time and content of last meal. Glucose of more than 200 mg/dL in a nonstressed, ambulatory subject supports the diagnosis of Diabetes Mellitus. ADA recommended reference range Performed By: #### B MP #### [facility] [address] Potassium [Moles/Vol] 4.3 mmol/L Normal 3.5-5.1 [facility] Comment on above: Performed By: #### B MP #### [facility] [address] [place] [address] [place] Sodium [Moles/Vol] 133 mmol/L Low 136-146 [facility] Comment on above: Performed By: #### B MP #### [facility] [address] Urea nitrogen [Mass/Vol] 13 mg/dL Normal 9-23 [facility] Comment on above: Performed By: #### B MP #### [facility] [address] Basic Metabolic Panelon 05-3 0-2021 Calcium [Mass/Vol] 8.6 mg/dL Normal 8.2-10.2 [facility] Comment on above: Performed By: #### C UU, ADDONUAPLUS, UCREA, YUN, UROSMO #### [facility] [address] [place] [address] [place] Chloride [Moles/Vol] 104 mmol/L Normal 95-114 [facility] Comment on above: Performed By: #### C UU, ADDONUAPLUS, UCREA, YUN, UROSMO #### [facility] [address] CO2 [Moles/Vol] 24.5 mmol/L Normal 22.0-30.0 [facility] Comment on above: Performed By: #### C UU, ADDONUAPLUS, UCREA, YUN, UROSMO #### [facility] [address] Creatinine [Mass/Vol] 0.86 mg/dL Normal 0.44-1.03 [facility] Comment on above: Performed By: #### C UU, ADDONUAPLUS, UCREA, YUN, UROSMO #### [facility] [address] Creatinine Clr Calc Pharmacy 75.34 [facility] Comment on above: Result Comment: PERF ORMED BY: [place] [address] PATHOLOGIST MARRIAGE AND FAMILY COUNSELOR GERA CASTELLANOS M.D. Performed By: #### C UU, ADDONUAPLUS, UCREA, YUN, UROSMO #### [address] Estimated GFR ( Neela > 60 [facility] Comment on above: Result Comment: GFR estimated reference range: According to KDOQI guidelines, <60 ml/min/1.73m2 is sufficient to diagnose a patient with chronic kidney disease. Performed By: #### C UU, ADDONUAPLUS, UCREA, YUN, UROSMO #### [facility] [address] Estimated GFR (Non- Am > 60 [facility] Comment on above: Performed By: #### C UU, ADDONUAPLUS, UCREA, YUN, UROSMO #### [facility] [address] [place] [address] [place] Glucose [Mass/Vol] 89 mg/dL Normal 70-100 [facility] Comment on above: Result Comment: [place] Glucose Reference Range is dependent on time and content of last meal. Glucose of more than 200 mg/dL in a nonstressed, ambulatory subject supports the diagnosis of Diabetes Mellitus. ADA recommended reference range Performed By: #### C UU, ADDONUAPLUS, UCREA, YUN, UROSMO #### [address] Potassium [Moles/Vol] 4.3 mmol/L Normal 3.5-5.1 [facility] Comment on above: Performed By: #### C UU, ADDONUAPLUS, UCREA, YUN, UROSMO #### [address] Sodium [Moles/Vol] 136 mmol/L Normal 136-146 [facility] Comment on above: Performed By: #### C UU, ADDONUAPLUS, UCREA, YUN, UROSMO #### [address] Urea nitrogen [Mass/Vol] 15 mg/dL Normal 9-23 [facility] Comment on above: Performed By: #### C UU, ADDONUAPLUS, UCREA, YUN, UROSMO #### [address] Complete Blood Count Auto Di ffon 11-08-2021 Basophils (Bld) [#/Vol] 0.0 10*3/uL Normal 0.0-0.2 [facility] Comment on above: Result Comment: PERF ORMED BY: [place] [address] PATHOLOGIST MARRIAGE AND FAMILY COUNSELOR GERA CASTELLANOS M.D. Performed By: #### C UU, ADDONUAPLUS, UCREA, YUN, UROSMO #### [address] Basophils/100 WBC (Bld) 0.6 % Normal . [facility] Comment on above: Performed By: #### C UU, ADDONUAPLUS, UCREA, YUN, UROSMO #### [facility] [address] Eosinophils (Bld) [#/Vol] 0.2 10*3/uL Normal 0.0-0.45 [facility] Comment on above: Performed By: #### C UU, ADDONUAPLUS, UCREA, YUN, UROSMO #### [facility] [address] Eosinophils/100 WBC (Bld) 2.1 % Normal . [facility] Comment on above: Performed By: #### C UU, ADDONUAPLUS, UCREA, YUN, UROSMO #### [facility] [address] Erythrocyte distribution width (RBC) [Ratio] 15.3 % Normal 11.9-15.3 [facility] Comment on above: Performed By: #### C UU, ADDONUAPLUS, UCREA, YUN, UROSMO #### [address] Hematocrit (Bld) [Volume fraction] 24.0 % Low 34.0-46.4 [facility] Comment on above: Performed By: #### C UU, ADDONUAPLUS, UCREA, YUN, UROSMO #### [address] Hemoglobin (Bld) [Mass/Vol] 8.1 g/dL Low 11.8-15.4 [facility] Comment on above: Performed By: #### C UU, ADDONUAPLUS, UCREA, YUN, UROSMO #### [address] Lymphocytes (Bld) [#/Vol] 0.8 10*3/uL Low 1.00-4.8 [facility] Comment on above: Performed By: #### C UU, ADDONUAPLUS, UCREA, YUN, UROSMO #### [place] [address] [place] Lymphocytes/100 WBC (Bld) 9.8 % Normal . [facility] Comment on above: Performed By: #### C UU, ADDONUAPLUS, UCREA, YUN, UROSMO #### [address] MCH (RBC) [Entitic mass] 33.8 pg Normal 24.7-34.3 [facility] Comment on above: Performed By: #### C UU, ADDONUAPLUS, UCREA, YUN, UROSMO #### [address] MCV (RBC) [Entitic vol] 99.6 fL Normal 80-100 [facility] Comment on above: Performed By: #### C UU, ADDONUAPLUS, UCREA, YUN, UROSMO #### [address] Mean Corpuscular HGB Conc 33.9 g/dL Normal 32.0-35.0 [facility] Comment on above: Performed By: #### C UU, ADDONUAPLUS, UCREA, YUN, UROSMO #### [address] Monocytes (Bld) [#/Vol] 0.8 10*3/uL Normal 0.0-0.8 [facility] Comment on above: Performed By: #### C UU, ADDONUAPLUS, UCREA, YUN, UROSMO #### [address] Monocytes/100 WBC (Bld) 10.7 % Normal . [facility] Comment on above: Performed By: #### C UU, ADDONUAPLUS, UCREA, YUN, UROSMO #### [address] Neutrophils (Bld) [#/Vol] 6.1 10*3/uL Normal 1.8-7.7 [facility] Comment on above: Performed By: #### C UU, ADDONUAPLUS, UCREA, YUN, UROSMO #### [address] [place] [address] [place] Neutrophils/100 WBC (Bld) 76.8 % Normal . [facility] Comment on above: Performed By: #### C UU, ADDONUAPLUS, UCREA, YUN, UROSMO #### [facility] [address] Nucleated RBC/100 WBC (Bld) [Ratio] 0.1 % Normal 0-0.5 [facility] Comment on above: Performed By: #### C UU, ADDONUAPLUS, UCREA, YUN, UROSMO #### [facility] [address] Platelet mean volume (Bld) [Entitic vol] 7.1 fL Normal 6.3-10.7 [facility] Comment on above: Performed By: #### C UU, ADDONUAPLUS, UCREA, YUN, UROSMO #### [address] Platelets (Bld) [#/Vol] 213 10*3/uL Normal 150-450 [facility] Comment on above: Performed By: #### C UU, ADDONUAPLUS, UCREA, YUN, UROSMO #### [address] RBC (Bld) [#/Vol] 2.41 10*6/uL Low 3.60-5.00 [facility] Comment on above: Performed By: #### C UU, ADDONUAPLUS, UCREA, YUN, UROSMO #### [address] WBC (Bld) [#/Vol] 7.9 10*3/uL Normal 4.5-11.0 [facility] Comment on above: Performed By: #### C UU, ADDONUAPLUS, UCREA, YUN, UROSMO #### [address] Basic Metabolic Panelon 05-2 Calcium [Mass/Vol] 8.5 mg/dL Normal 8.2-10.2 [facility] Comment on above: Performed By: #### C UU, ADDONUAPLUS, UCREA, YUN, UROSMO #### [facility] [address] Chloride [Moles/Vol] 103 mmol/L Normal 95-114 [facility] Comment on above: Performed By: #### C UU, ADDONUAPLUS, UCREA, YUN, UROSMO #### [facility] [address] CO2 [Moles/Vol] 23.6 mmol/L Normal 22.0-30.0 [facility] Comment on above: Performed By: #### C UU, ADDONUAPLUS, UCREA, YUN, UROSMO #### [facility] [address] Creatinine [Mass/Vol] 0.88 mg/dL Normal 0.44-1.03 [facility] Comment on above: Performed By: #### C UU, ADDONUAPLUS, UCREA, YUN, UROSMO #### [facility] [address] [place] [address] [place] Creatinine Clr Calc Pharmacy 73.42 [facility] Comment on above: Result Comment: PERF ORMED BY: [place] [address] PATHOLOGIST MARRIAGE AND FAMILY COUNSELOR GERA CASTELLANOS M.D. Performed By: #### C UU, ADDONUAPLUS, UCREA, YUN, UROSMO #### [address] Estimated GFR ( Neela > 60 Normal [facility] Comment on above: Result Comment: GFR estimated reference range: According to KDOQI guidelines, <60 ml/min/1.73m2 is sufficient to diagnose a patient with chronic kidney disease. Performed By: #### C UU, ADDONUAPLUS, UCREA, YUN, UROSMO #### [facility] [address] [place] [address] [place] Estimated GFR (Non- Am > 60 Normal [facility] Comment on above: Performed By: #### C UU, ADDONUAPLUS, UCREA, YUN, UROSMO #### [facility] [address] Glucose [Mass/Vol] 98 mg/dL Normal 70-100 [facility] Comment on above: Result Comment: [place] Glucose Reference Range is dependent on time and content of last meal. Glucose of more than 200 mg/dL in a nonstressed, ambulatory subject supports the diagnosis of Diabetes Mellitus. ADA recommended reference range Performed By: #### C UU, ADDONUAPLUS, UCREA, YUN, UROSMO #### [address] Potassium [Moles/Vol] 4.2 mmol/L Normal 3.5-5.1 [facility] Comment on above: Performed By: #### C UU, ADDONUAPLUS, UCREA, YUN, UROSMO #### [address] Sodium [Moles/Vol] 134 mmol/L Low 136-146 [facility] Comment on above: Performed By: #### C UU, ADDONUAPLUS, UCREA, YUN, UROSMO #### [address] Urea nitrogen [Mass/Vol] 18 mg/dL Normal 9-23 [facility] Comment on above: Performed By: #### C UU, ADDONUAPLUS, UCREA, YUN, UROSMO #### [address] Complete Blood Count Auto Di ffon 11-07-2021 Basophils (Bld) [#/Vol] 0.1 10*3/uL Normal 0.0-0.2 [facility] Comment on above: Performed By: #### C UU, ADDONUAPLUS, UCREA, YUN, UROSMO #### [place] [address] [place] Basophils/100 WBC (Bld) 0.6 % Normal . [facility] Comment on above: Performed By: #### C UU, ADDONUAPLUS, UCREA, YUN, UROSMO #### [address] Eosinophils (Bld) [#/Vol] 0.2 10*3/uL Normal 0.0-0.45 [facility] Comment on above: Performed By: #### C UU, ADDONUAPLUS, UCREA, YUN, UROSMO #### [address] Eosinophils/100 WBC (Bld) 1.9 % Normal . [facility] Comment on above: Performed By: #### C UU, ADDONUAPLUS, UCREA, YUN, UROSMO #### [address] Erythrocyte distribution width (RBC) [Ratio] 15.6 % High 11.9-15.3 [facility] Comment on above: Performed By: #### C UU, ADDONUAPLUS, UCREA, YUN, UROSMO #### [address] Hematocrit (Bld) [Volume fraction] 21.8 % Low 34.0-46.4 [facility] Comment on above: Performed By: #### C UU, ADDONUAPLUS, UCREA, YUN, UROSMO #### [address] Hemoglobin (Bld) [Mass/Vol] 7.4 g/dL Low 11.8-15.4 [facility] Comment on above: Performed By: #### C UU, ADDONUAPLUS, UCREA, YUN, UROSMO #### [address] Lymphocytes (Bld) [#/Vol] 0.8 10*3/uL Low 1.00-4.8 [facility] Comment on above: Performed By: #### C UU, ADDONUAPLUS, UCREA, YUN, UROSMO #### [address] Lymphocytes/100 WBC (Bld) 9.2 % Normal . [facility] Comment on above: Performed By: #### C UU, ADDONUAPLUS, UCREA, YUN, UROSMO #### [facility] [address] MCH (RBC) [Entitic mass] 33.8 pg Normal 24.7-34.3 [facility] Comment on above: Performed By: #### C UU, ADDONUAPLUS, UCREA, YUN, UROSMO #### [address] MCV (RBC) [Entitic vol] 100.2 fL High 80-100 [facility] Comment on above: Performed By: #### C UU, ADDONUAPLUS, UCREA, YUN, UROSMO #### [address] Mean Corpuscular HGB Conc 33.8 g/dL Normal 32.0-35.0 [facility] Comment on above: Performed By: #### C UU, ADDONUAPLUS, UCREA, YUN, UROSMO #### [address] Monocytes (Bld) [#/Vol] 0.9 10*3/uL High 0.0-0.8 [facility] Comment on above: Performed By: #### C UU, ADDONUAPLUS, UCREA, YUN, UROSMO #### [address] Monocytes/100 WBC (Bld) 9.5 % Normal . [facility] Comment on above: Performed By: #### C UU, ADDONUAPLUS, UCREA, YUN, UROSMO #### [address] Neutrophils (Bld) [#/Vol] 7.2 10*3/uL Normal 1.8-7.7 [facility] Comment on above: Performed By: #### C UU, ADDONUAPLUS, UCREA, YUN, UROSMO #### [facility] [address] Neutrophils/100 WBC (Bld) 78.8 % Normal . [facility] Comment on above: Performed By: #### C UU, ADDONUAPLUS, UCREA, YUN, UROSMO #### [facility] [address] Nucleated RBC/100 WBC (Bld) [Ratio] 0.2 % Normal 0-0.5 [facility] Comment on above: Performed By: #### C UU, ADDONUAPLUS, UCREA, YUN, UROSMO #### [facility] [address] Platelet mean volume (Bld) [Entitic vol] 7.1 fL Normal 6.3-10.7 [facility] Comment on above: Performed By: #### C UU, ADDONUAPLUS, UCREA, YUN, UROSMO #### [facility] [address] Platelets (Bld) [#/Vol] 212 10*3/uL Normal 150-450 [facility] Comment on above: Performed By: #### C UU, ADDONUAPLUS, UCREA, YUN, UROSMO #### [address] RBC (Bld) [#/Vol] 2.17 10*6/uL Low 3.60-5.00 [facility] Comment on above: Performed By: #### C UU, ADDONUAPLUS, UCREA, YUN, UROSMO #### [facility] [address] [place] [address] [place] WBC (Bld) [#/Vol] 9.1 10*3/uL Normal 4.5-11.0 [facility] Comment on above: Performed By: #### C UU, ADDONUAPLUS, UCREA, YUN, UROSMO #### [facility] [address] [place] [address] Haptoglobinon 11-07-2021 Haptoglobin 245 mg/dL Normal 37-246 [facility] Comment on above: Result Comment: PERF ORMED BY: [place] [address] PATHOLOGIST [employer]ILY [employer]SEL[employer] GERA CASTELLANOS M.D. Performed By: #### C UU, ADDONUAPLUS, UCREA, YUN, UROSMO #### [address] Hemoglobin and Hematocriton 11-07-2021 Hematocrit (Bld) [Volume fraction] 21.8 % Low 34.0-46.4 [facility] Comment on above: Result Comment: PERF ORMED BY: [place] [address] PATHOLOGIST [employer] FAMILY COUNSELOR GERA CASTELLANOS M.D. Performed By: #### C UU, ADDONUAPLUS, UCREA, YUN, UROSMO #### [address] Hemoglobin (Bld) [Mass/Vol] 7.3 g/dL Low 11.8-15.4 [facility] Comment on above: Performed By: #### C UU, ADDONUAPLUS, UCREA, YUN, UROSMO #### [address] Iron and TIBC Profileon 10-11 % Iron Saturation 14.0 % Low 20-50 [facility] Comment on above: Performed By: #### C UU, ADDONUAPLUS, UCREA, YUN, UROSMO #### [address] Iron [Mass/Vol] 44 ug/dL Normal 40-150 [facility] Comment on above: Performed By: #### C UU, ADDONUAPLUS, UCREA, YUN, UROSMO #### [address] Total Iron Binding Capacity 295 ug/dL Normal 255-450 [facility] Comment on above: Performed By: #### C UU, ADDONUAPLUS, UCREA, YUN, UROSMO #### [facility] [address] [place] [id number] [facility] Transferrin [Mass/Vol] 211 mg/dL Normal 180-380 [facility] Comment on above: Result Comment: PERF ORMED BY: [address] [place] [address] PATHOLOGIST [employer] FAMILY COUNSELOR GERA CASTELLANOS M.D. Performed By: #### C UU, ADDONUAPLUS, UCREA, YUN, UROSMO #### [facility] [address] [place] [id number] [facility] Kyler 11-07-2021 L - -------- Specimen: [id number] Received: 11/07/21 Status: BEL Bergman Num: [id number] Spec Type: Impression Subm Dr: Aissatou Sotelo MD Tissues: PATHBBK Procedures: PATHREVIEW -------- Patient Age/Sex Location Account Attending Physician -------- NascimentoLinda boothe Lisa 71/F 3T [id number] Javi Pearson MD -------- SPEC NUM: [id number] RECD: 11/07/21 STATUS: BEL BERGMAN NUM: [id number] SYLVIA: 11/07/21 DR: Aissatou Sotelo MD ENTERED: 11/07/[address]: Ave Mehta MD SPEC TYPE: Impression DEPT: [place] ORDERED: PATHREVIEW ORDERED: PATHREVIEW Pathologist Review Moderate macrocytic normochromic anemia with mild anisocytosis. Rare ovalocytes and basophilic stippling are noted. Liver disease, vitamin B-12/folate deficiency, renal insufficiency and drug effect should be considered. Mild neutrophilia with occasional toxic granulation, favor reactive etiology. [id number] -------- -------- Specimen: [id number] Received: 11/07/21 Status: BEL Bergman Num: [id number] Spec Type: Impression Subm Dr: Aissatou Sotelo MD Tissues: PATHBBK Procedures: PATHREVIEW -------- Patient: Linda Nascimento [id number] (Continued) -------- Signed (signature on file) Gera Castellanos MD 11/09/21 1158 Normal [facility] LDH Lactate Dehydrogenaseon 11-07-2021 LDH Lactate Dehydrogenase 184 U/L Normal 45-190 [facility] Comment on above: Performed By: #### C SHELBIE, BRUNILDA, UCREA, YUN, UROSMO #### [facility] [address] [place] [address] Pathologist Slide Reviewon 0 11-07-2021 Pathologist Slide Review Ordered Path Review Normal [facility] Comment on above: Result Comment: PERF ORMED BY: [place] [address] PATHOLOGIST [employer] FAMILY COUNSELOR GERA CASTELLANOS M.D. Performed By: #### C SHELBIE, BRUNILDA, SYLVIAREA, YUN, UROSMO #### [facility] [address] Reticulocyte Counton 022 Reticulocyte Number 0.062 10*6/uL Normal 0.024-0.084 [facility] Comment on above: Result Comment: PERF ORMED BY: [place] [address] PATHOLOGIST [employer] FAMILY COUNSELOR GERA CASTELLANOS M.D. Performed By: #### C UU, ADDONUAPLUS, UCREA, YUN, UROSMO #### [address] Reticulocyte Percent 2.8 % High 0.5-1.5 [facility] Comment on above: Performed By: #### C UU, ADDONUAPLUS, UCREA, YUN, UROSMO #### [address] Stool Occult Blood (Immuno)o n 11-07-2021 Stool Occult Blood (Immuno) Occult Blood (Immuno) Positive for Occult Blood by Immunochemical Methodology Reference range = Negative PERFORMED BY: [place] [address] PATHOLOGIST [employer] FAMILY COUNSELOR GERA CASTELLANOS M.D. [facility] Comment on above: Performed By: #### C UU, ADDONUAPLUS, UCREA, YUN, UROSMO #### [address] Basic Metabolic Panelon 10-11 Calcium [Mass/Vol] 8.8 mg/dL Normal 8.2-10.2 [facility] Comment on above: Performed By: #### C UU, ADDONUAPLUS, UCREA, YUN, UROSMO #### [address] Chloride [Moles/Vol] 103 mmol/L Normal 95-114 [facility] Comment on above: Performed By: #### C UU, ADDONUAPLUS, UCREA, YUN, UROSMO #### [place] [address] [place] CO2 [Moles/Vol] 23.7 mmol/L Normal 22.0-30.0 [facility] Comment on above: Performed By: #### C UU, ADDONUAPLUS, UCREA, YUN, UROSMO #### [facility] [address] [place] [id number] [facility] Creatinine [Mass/Vol] 0.94 mg/dL Normal 0.44-1.03 [facility] Comment on above: Performed By: #### C UU, ADDONUAPLUS, UCREA, YUN, UROSMO #### [facility] [address] Creatinine Clr Calc Pharmacy 67.79 [facility] Comment on above: Result Comment: PERF ORMED BY: [place] [address] PATHOLOGIST [employer]AGE [employer] FAMILY COUNSELOR GERA CASTELLANOS M.D. Performed By: #### C UU, ADDONUAPLUS, UCREA, YUN, UROSMO #### [facility] [address] Estimated GFR ( Neeal > 60 [facility] Comment on above: Result Comment: GFR estimated reference range: According to KDOQI guidelines, <60 ml/min/1.73m2 is sufficient to diagnose a patient with chronic kidney disease. Performed By: #### C UU, ADDONUAPLUS, UCREA, YUN, UROSMO #### [facility] [address] [place] [address] [place] Estimated GFR (Non- Am 58 [facility] Comment on above: Performed By: #### C UU, ADDONUAPLUS, UCREA, YUN, UROSMO #### [facility] [address] Glucose [Mass/Vol] 107 mg/dL High 70-100 [facility] Comment on above: Result Comment: [place] Glucose Reference Range is dependent on time and content of last meal. Glucose of more than 200 mg/dL in a nonstressed, ambulatory subject supports the diagnosis of Diabetes Mellitus. ADA recommended reference range Performed By: #### C UU, ADDONUAPLUS, UCREA, YUN, UROSMO #### [address] Potassium [Moles/Vol] 4.7 mmol/L Normal 3.5-5.1 [facility] Comment on above: Performed By: #### C UU, ADDONUAPLUS, UCREA, YUN, UROSMO #### [facility] [address] Sodium [Moles/Vol] 133 mmol/L Low 136-146 [facility] Comment on above: Performed By: #### C UU, ADDONUAPLUS, UCREA, YUN, UROSMO #### [address] Urea nitrogen [Mass/Vol] 23 mg/dL Normal 9-23 [facility] Comment on above: Performed By: #### C UU, ADDONUAPLUS, UCREA, YUN, UROSMO #### [address] Hemoglobin and Hematocriton 11-06-2021 Hematocrit (Bld) [Volume fraction] 23.7 % Low 34.0-46.4 [facility] Comment on above: Result Comment: PERF ORMED BY: [place] [address] PATHOLOGIST [employer]AGE [employer] FAMILY COUNSELOR GERA CASTELLANOS M.D. Performed By: #### C UU, ADDONUAPLUS, UCREA, YUN, UROSMO #### [address] Hemoglobin (Bld) [Mass/Vol] 8.1 g/dL Low 11.8-15.4 [facility] Comment on above: Performed By: #### C UU, ADDONUAPLUS, UCREA, YUN, UROSMO #### [address] Hematocrit (Bld) [Volume fraction] 22.3 % Low 34.0-46.4 [facility] Comment on above: Result Comment: PERF ORMED BY: [place] [address] PATHOLOGIST [employer]AGE [employer] FAMILY COUNSELOR GERA CASTELLANOS M.D. Performed By: #### C UU, ADDONUAPLUS, UCREA, YUN, UROSMO #### [facility] [address] Hemoglobin (Bld) [Mass/Vol] 7.7 g/dL Low 11.8-15.4 [facility] Comment on above: Performed By: #### C UU, ADDONUAPLUS, UCREA, YUN, UROSMO #### [address] Osmolality, Urineon 11-07-19 22 Osmolality, Urine 357 mosm Normal 250-900 [facility] Comment on above: Result Comment: PERF ORMED BY: [place] [address] PATHOLOGIST [employer]AGE [employer] FAMILY COUNSELOR GERA CASTELLANOS M.D. Performed By: #### C UU, ADDONUAPLUS, UCREA, YUN, UROSMO #### [address] Sodium, Urineon 11-06-2021 Sodium (U) [Moles/Vol] 15.0 mmol/L Normal [facility] Comment on above: Result Comment: No r eference range established PERFORMED BY: [place] [address] PATHOLOGIST [employer]AGE [employer] FAMILY COUNSELOR GERA CASTELLANOS M.D. Performed By: #### C UU, ADDONUAPLUS, UCREA, YUN, UROSMO #### [address] Basic Metabolic Panelon 05- Calcium [Mass/Vol] 8.4 mg/dL Normal 8.2-10.2 [facility] Comment on above: Performed By: #### C UU, ADDONUAPLUS, UCREA, YUN, UROSMO #### [address] Chloride [Moles/Vol] 99 mmol/L Normal 95-114 [facility] Comment on above: Performed By: #### C UU, ADDONUAPLUS, UCREA, YUN, UROSMO #### [facility] [address] CO2 [Moles/Vol] 22.4 mmol/L Normal 22.0-30.0 [facility] Comment on above: Performed By: #### C UU, ADDONUAPLUS, UCREA, YUN, UROSMO #### [facility] [address] Creatinine [Mass/Vol] 1.29 mg/dL High 0.44-1.03 [facility] Comment on above: Performed By: #### C UU, ADDONUAPLUS, UCREA, YUN, UROSMO #### [facility] [address] Creatinine Clr Calc Pharmacy 48.68 [facility] Comment on above: Result Comment: PERF ORMED BY: [place] [address] PATHOLOGIST [employer]AGE [employer] FAMILY COUNSELOR GERA CASTELLANOS M.D. Performed By: #### C UU, ADDONUAPLUS, UCREA, YUN, UROSMO #### [facility] [address] Estimated GFR ( Neela 49 [facility] Comment on above: Result Comment: GFR estimated reference range: According to KDOQI guidelines, <60 ml/min/1.73m2 is sufficient to diagnose a patient with chronic kidney disease. Performed By: #### C UU, ADDONUAPLUS, UCREA, YUN, UROSMO #### [facility] [address] [place] [address] [place] Estimated GFR (Non- Am 41 [facility] Comment on above: Performed By: #### C UU, ADDONUAPLUS, UCREA, YUN, UROSMO #### [facility] [address] [place] [address] [place] Glucose [Mass/Vol] 124 mg/dL High 70-100 [facility] Comment on above: Result Comment: [place] Glucose Reference Range is dependent on time and content of last meal. Glucose of more than 200 mg/dL in a nonstressed, ambulatory subject supports the diagnosis of Diabetes Mellitus. ADA recommended reference range Performed By: #### C UU, ADDONUAPLUS, UCREA, YUN, UROSMO #### [facility] [address] Potassium [Moles/Vol] 5.1 mmol/L Normal 3.5-5.1 [facility] Comment on above: Performed By: #### C UU, ADDONUAPLUS, UCREA, YUN, UROSMO #### [facility] [address] Sodium [Moles/Vol] 129 mmol/L Low 136-146 [facility] Comment on above: Performed By: #### C UU, ADDONUAPLUS, UCREA, YUN, UROSMO #### [facility] [address] Urea nitrogen [Mass/Vol] 27 mg/dL High 9-23 [facility] Comment on above: Performed By: #### C UU, ADDONUAPLUS, UCREA, YUN, UROSMO #### [address] Complete Blood Count Auto Di ffon 11-05-2021 Basophils (Bld) [#/Vol] 0.0 10*3/uL Normal 0.0-0.2 [facility] Comment on above: Result Comment: PERF ORMED BY: [place] [address] PATHOLOGIST [employer]AGE [employer] FAMILY COUNSELOR GERA CASTELLANOS M.D. Performed By: #### C UU, ADDONUAPLUS, UCREA, YUN, UROSMO #### [address] Basophils/100 WBC (Bld) 0.2 % Normal . [facility] Comment on above: Performed By: #### C UU, ADDONUAPLUS, UCREA, YUN, UROSMO #### [facility] [address] Eosinophils (Bld) [#/Vol] 0.1 10*3/uL Normal 0.0-0.45 [facility] Comment on above: Performed By: #### C UU, ADDONUAPLUS, UCREA, YUN, UROSMO #### [address] Eosinophils/100 WBC (Bld) 0.9 % Normal . [facility] Comment on above: Performed By: #### C UU, ADDONUAPLUS, UCREA, YUN, UROSMO #### [address] Erythrocyte distribution width (RBC) [Ratio] 14.9 % Normal 11.9-15.3 [facility] Comment on above: Performed By: #### C UU, ADDONUAPLUS, UCREA, YUN, UROSMO #### [address] Hematocrit (Bld) [Volume fraction] 21.0 % Low 34.0-46.4 [facility] Comment on above: Performed By: #### C UU, ADDONUAPLUS, UCREA, YUN, UROSMO #### [address] Hemoglobin (Bld) [Mass/Vol] 6.9 g/dL Low 11.8-15.4 [facility] Comment on above: Performed By: #### C UU, ADDONUAPLUS, UCREA, YUN, UROSMO #### [address] Lymphocytes (Bld) [#/Vol] 0.5 10*3/uL Low 1.00-4.8 [facility] Comment on above: Performed By: #### C UU, ADDONUAPLUS, UCREA, YUN, UROSMO #### [address] Lymphocytes/100 WBC (Bld) 5.3 % Normal . [facility] Comment on above: Performed By: #### C UU, ADDONUAPLUS, UCREA, YUN, UROSMO #### [facility] [address] MCH (RBC) [Entitic mass] 33.1 pg Normal 24.7-34.3 [facility] Comment on above: Performed By: #### C UU, ADDONUAPLUS, UCREA, YUN, UROSMO #### [address] MCV (RBC) [Entitic vol] 100.2 fL High 80-100 [facility] Comment on above: Performed By: #### C UU, ADDONUAPLUS, UCREA, YUN, UROSMO #### [address] Mean Corpuscular HGB Conc 33.1 g/dL Normal 32.0-35.0 [facility] Comment on above: Performed By: #### C UU, ADDONUAPLUS, UCREA, YUN, UROSMO #### [facility] [address] [place] [address] Monocytes (Bld) [#/Vol] 0.8 10*3/uL Normal 0.0-0.8 [facility] Comment on above: Performed By: #### C UU, ADDONUAPLUS, UCREA, YUN, UROSMO #### [address] Monocytes/100 WBC (Bld) 8.6 % Normal . [facility] Comment on above: Performed By: #### C UU, ADDONUAPLUS, UCREA, YUN, UROSMO #### [facility] [address] [place] [address] Neutrophils (Bld) [#/Vol] 7.6 10*3/uL Normal 1.8-7.7 [facility] Comment on above: Performed By: #### C UU, ADDONUAPLUS, UCREA, YUN, UROSMO #### [facility] [address] Neutrophils/100 WBC (Bld) 85.0 % Normal . [facility] Comment on above: Performed By: #### C UU, ADDONUAPLUS, UCREA, YUN, UROSMO #### [facility] [address] Nucleated RBC/100 WBC (Bld) [Ratio] 0.0 % Normal 0-0.5 [facility] Comment on above: Performed By: #### C UU, ADDONUAPLUS, UCREA, YUN, UROSMO #### [facility] [address] Platelet mean volume (Bld) [Entitic vol] 7.3 fL Normal 6.3-10.7 [facility] Comment on above: Performed By: #### C UU, ADDONUAPLUS, UCREA, YUN, UROSMO #### [facility] [address] Platelets (Bld) [#/Vol] 197 10*3/uL Normal 150-450 [facility] Comment on above: Performed By: #### C UU, ADDONUAPLUS, UCREA, YUN, UROSMO #### [facility] [address] RBC (Bld) [#/Vol] 2.10 10*6/uL Low 3.60-5.00 [facility] Comment on above: Performed By: #### C UU, ADDONUAPLUS, UCREA, YUN, UROSMO #### [facility] [address] [place] [address] [place] WBC (Bld) [#/Vol] 8.9 10*3/uL Normal 4.5-11.0 [facility] Comment on above: Performed By: #### C UU, ADDONUAPLUS, UCREA, YUN, UROSMO #### [facility] [address] Creatinine, Urine (Random)on 11-05-2021 Creatinine, Urine (Random) 47.6 mg/dL Normal [facility] Comment on above: Result Comment: No r eference range established Performed By: #### C UU, ADDONUAPLUS, UCREA, YUN, UROSMO #### [facility] [address] [place] [address] [place] Dipstick and Microscopicon 0 11-05-2021 Appearance (U) Clear Normal Clear [facility] Comment on above: Order Comment: Name Collection Type:: Voided Performed By: #### C UU, ADDONUAPLUS, UCREA, YUN, UROSMO #### [facility] [address] Bacteria,Urine None Seen Normal None Seen [facility] Comment on above: Order Comment: Name Collection Type:: Voided Performed By: #### C UU, ADDONUAPLUS, UCREA, YUN, UROSMO #### [facility] [address] Bilirubin,Urine Negative Normal Negative [facility] Comment on above: Order Comment: Name Collection Type:: Voided Performed By: #### C UU, ADDONUAPLUS, UCREA, YUN, UROSMO #### [facility] [address] Color (U) Yellow Normal Yellow [facility] Comment on above: Order Comment: Name Collection Type:: Voided Performed By: #### C UU, ADDONUAPLUS, UCREA, YUN, UROSMO #### [facility] [address] Glucose Ql (U) Normal Normal Normal [facility] Comment on above: Order Comment: Name Collection Type:: Voided Performed By: #### C UU, ADDONUAPLUS, UCREA, YUN, UROSMO #### [facility] [address] [place] [address] [place] Hyaline Casts,Urine 0-8 Normal 0-8 [facility] Comment on above: Order Comment: Name Collection Type:: Voided Result Comment: PERF ORMED BY: [place] [address] PATHOLOGIST [employer]AGE [employer] FAMILY COUNSELOR GERA CASTELLANOS M.D. Performed By: #### C UU, ADDONUAPLUS, UCREA, YUN, UROSMO #### [address] Ketones Ql (U) Negative Normal Negative [facility] Comment on above: Order Comment: Name Collection Type:: Voided Performed By: #### C UU, ADDONUAPLUS, UCREA, YUN, UROSMO #### [address] Leukocyte esterase Test strip Ql (U) 1+ High Negative [facility] Comment on above: Order Comment: Name Collection Type:: Voided Performed By: #### C UU, ADDONUAPLUS, UCREA, YUN, UROSMO #### [address] Nitrite,Urine Negative Normal Negative [facility] Comment on above: Order Comment: Name Collection Type:: Voided Performed By: #### C UU, ADDONUAPLUS, UCREA, YUN, UROSMO #### [address] Occult Blood,Urine Negative Normal Negative [facility] Comment on above: Order Comment: Name Collection Type:: Voided Result Comment: PERF ORMED BY: [place] [address] PATHOLOGIST [employer]AGE [employer] FAMILY COUNSELOR GERA CASTELLANOS M.D. Performed By: #### C UU, ADDONUAPLUS, UCREA, YUN, UROSMO #### [address] pH (U) 5.5 [pH] Normal 5.0-9.0 [facility] Comment on above: Order Comment: Name Collection Type:: Voided Performed By: #### C UU, ADDONUAPLUS, UCREA, YUN, UROSMO #### [address] Protein,Urine Negative Normal Negative [facility] Comment on above: Order Comment: Name Collection Type:: Voided Performed By: #### C UU, ADDONUAPLUS, UCREA, YUN, UROSMO #### [address] RBC,Urine 1-2 Normal 0-4 [facility] Comment on above: Order Comment: Name Collection Type:: Voided Performed By: #### C UU, ADDONUAPLUS, UCREA, YUN, UROSMO #### [address] Specificy [place],Urine 1.008 Normal 1.001-1.030 [facility] Comment on above: Order Comment: Name Collection Type:: Voided Performed By: #### C UU, ADDONUAPLUS, UCREA, YUN, UROSMO #### [address] Squamous Epithelial Cell,Urine 0-1 Normal 0-2 [facility] Comment on above: Order Comment: Name Collection Type:: Voided Performed By: #### C UU, ADDONUAPLUS, UCREA, YUN, UROSMO #### [address] Urobilinogen,Urine Normal Normal Normal [facility] Comment on above: Order Comment: Name Collection Type:: Voided Performed By: #### C UU, ADDONUAPLUS, UCREA, YUN, UROSMO #### [address] WBC,Urine 5-9 High 0-4 [facility] Comment on above: Order Comment: Name Collection Type:: Voided Performed By: #### C UU, ADDONUAPLUS, UCREA, YUN, UROSMO #### [address] Hemoglobin and Hematocriton 11-05-2021 Hematocrit (Bld) [Volume fraction] 22.8 % Low 34.0-46.4 [facility] Comment on above: Result Comment: PERF ORMED BY: [facility] [address] [place] [address] PATHOLOGIST [employer]AGE [employer] FAMILY COUNSELOR GERA CASTELLANOS M.D. Performed By: #### C UU, ADDONUAPLUS, UCREA, YUN, UROSMO #### [address] Hemoglobin (Bld) [Mass/Vol] 7.8 g/dL Low 11.8-15.4 [facility] Comment on above: Performed By: #### C UU, ADDONUAPLUS, UCREA, YUN, UROSMO #### [address] Hematocrit (Bld) [Volume fraction] 25.3 % Low 34.0-46.4 [facility] Comment on above: Result Comment: PERF ORMED BY: [place] [address] PATHOLOGIST [employer]AGE AND FAMILY COUNSELOR GERA CASTELLANOS M.D. Performed By: #### C UU, ADDONUAPLUS, UCREA, YUN, UROSMO #### [address] Hemoglobin (Bld) [Mass/Vol] 8.5 g/dL Low 11.8-15.4 [facility] Comment on above: Performed By: #### C UU, ADDONUAPLUS, UCREA, YUN, UROSMO #### [place] [address] [place] Osmolality, Urineon 11-06-19 Osmolality, Urine 207 mosm Low 250-900 [facility] Comment on above: Result Comment: PERF ORMED BY: [place] [address] PATHOLOGIST [employer]AGE [employer] FAMILY COUNSELOR GERA CASTELLANOS M.D. Performed By: #### C UU, ADDONUAPLUS, UCREA, YUN, UROSMO #### [address] Sodiumon 11-05-2021 Sodium [Moles/Vol] 131 mmol/L Low 136-146 [facility] Comment on above: Result Comment: PERF ORMED BY: [place] [address] PATHOLOGIST [employer] FAMILY COUNSELOR GERA CASTELLANOS M.D. Performed By: #### C UU, ADDONUAPLUS, UCREA, YUN, UROSMO #### [facility] [address] Sodium [Moles/Vol] 131 mmol/L Low 136-146 [facility] Comment on above: Result Comment: PERF ORMED BY: [place] [address] PATHOLOGIST [employer]AGE [employer] FAMILY COUNSELOR GERA CASTELLANOS M.D. Performed By: #### C UU, ADDONUAPLUS, UCREA, YUN, UROSMO #### [facility] [address] [place] [address] Sodium [Moles/Vol] 126 mmol/L Low 136-146 [facility] Comment on above: Result Comment: PERF ORMED BY: [place] [address] PATHOLOGIST MARRIAGE AND FAMILY COUNSELOR GERA CASTELLANOS M.D. Performed By: #### N A #### [address] Sodium, Urine (Random)on Sodium, Urine (Random) < 10 Normal [facility] Comment on above: Result Comment: No r eference range established PERFORMED BY: [place] [address] PATHOLOGIST MARRIAGE AND FAMILY COUNSELOR GERA CASTELLANOS M.D. Performed By: #### C UU, ADDONUAPLUS, UCREA, YUN, UROSMO #### [facility] [address] [place] [address] Urine Cultureon 11-05-2021 Bacteria identified Cx Nom (U) 75,000 colonies/ml mixed bacterial skin contaminants including mixed gram negative bacilli - 2 Days PERFORMED BY: [place] [id number] PATHOLOGIST MARRIAGE AND FAMILY COUNSELOR GERA CASTELLANOS M.D. Normal [facility] Comment on above: Performed By: #### C UU, ADDONUAPLUS, UCREA, YUN, UROSMO #### [facility] [address] [place] [id number] [facility] ABO/Rh Retypeon 11-04-2021 ABO/RH Recheck Result Positive [facility] Comment on above: Result Comment: PERF ORMED BY: [facility] [address] [place] [address] PATHOLOGIST MARRIAGE AND FAMILY COUNSELOR GERA CASTELLANOS M.D. COVID-19 Antigenon 2 COVID-19 [...] developed and its performance characteristic determined by [employer] and validated at [facility]. This test has not been FDA [...] for SARS Antigen by [employer] PERFORMED BY: [place] [address] PATHOLOGIST MARRIAGE AND FAMILY COUNSELOR GERA CASTELLANOS M.D. Normal [facility] Comment on above: Performed By: #### C UU, ADDONUAPLUS, UCREA, YUN, UROSMO #### [facility] [address] [place] [id number] [facility] COVID-19 FRon 11-04-2021 SARS-CoV-2 (COVID-19) RNA DONNIE+probe Ql (Unsp spec) Negative Normal Negative [facility] Comment on above: Order Comment: Healt hcare Worker?: N Result Comment: Testing for SARS-CoV-2 by RT-PCR This test was developed and its performance characteristics determined by [employer] and validated at the [facility]. This test has not been FDA [...] is terminated or revoked sooner. PERFORMED BY: [place] [address] PATHOLOGIST MARRIAGE AND FAMILY COUNSELOR GERA CASTELLANOS M.D. Performed By: #### C UU, ADDONUAPLUS, UCREA, YUN, UROSMO #### [facility] [address] [place] [id number] [facility] CT abdomen pelvis wo conon 0 11-04-2021 CT abdomen pelvis wo con [facility] [place] [address] [place] [address] CT Scan Report Signed Patient: Linda Nascmiento MR#: [id number] 840 : 1950 Acct:[id number] Age/Sex: 71 / F ADM Date: 11/04/21 Loc: Room: [address] [place] [address] Type: ADM IN Attending Dr: Aissatou Sotelo [...] Haines Jr., M.D.11/04/2021 6:26 PM Dictation Location: [place] [address] Transcribed By: [facility] 11/04/211825 Dictated By: Marin Haines Jr, MD 11/04/211813 Signed By: 11/04/211825 [facility] CT head/brain wo conon 11-04 CT head/brain wo con [facility] [address] CT Scan Report Signed Patient: Linda Nascimento MR#: [id number] 840 : 1950 Acct:[id number] Age/Sex: 71 / F ADM Date: 11/04/21 Loc: Room: [address] [place] [address] Type: ADM IN Attending Dr: Aissatou Sotelo [...] Haines Jr., M.D.11/04/2021 6:14 PM Dictation Location: [place] [address] Transcribed By: [facility] 11/04/211813 Dictated By: Marin Haines Jr, MD 11/04/211810 Signed By: 11/04/211813 [facility] Complete Blood Count Auto Di ffon 11-04-2021 Basophils (Bld) [#/Vol] 0.0 10*3/uL Normal 0.0-0.2 [facility] Comment on above: Order Comment: Name Collection Type:: Voided Result Comment: PERF ORMED BY: [place] [address] PATHOLOGIST MARRIAGE AND FAMILY COUNSELOR GERA CASTELLANOS M.D. Performed By: #### C UU, ADDONUAPLUS, UCREA, YUN, UROSMO #### [address] Basophils/100 WBC (Bld) 0.1 % Normal . [facility] Comment on above: Order Comment: Name Collection Type:: Voided Performed By: #### C UU, ADDONUAPLUS, UCREA, YUN, UROSMO #### [address] Eosinophils (Bld) [#/Vol] 0.0 10*3/uL Normal 0.0-0.45 [facility] Comment on above: Order Comment: Name Collection Type:: Voided Performed By: #### C UU, ADDONUAPLUS, UCREA, YUN, UROSMO #### [address] Eosinophils/100 WBC (Bld) 0.2 % Normal . [facility] Comment on above: Order Comment: Name Collection Type:: Voided Performed By: #### C UU, ADDONUAPLUS, UCREA, YUN, UROSMO #### [address] Erythrocyte distribution width (RBC) [Ratio] 13.5 % Normal 11.9-15.3 [facility] Comment on above: Order Comment: Name Collection Type:: Voided Performed By: #### C UU, ADDONUAPLUS, UCREA, YUN, UROSMO #### [address] Hematocrit (Bld) [Volume fraction] 20.4 % Low 34.0-46.4 [facility] Comment on above: Order Comment: Name Collection Type:: Voided Performed By: #### C UU, ADDONUAPLUS, UCREA, YNU, UROSMO #### [address] Hemoglobin (Bld) [Mass/Vol] 7.0 g/dL Low 11.8-15.4 [facility] Comment on above: Order Comment: Name Collection Type:: Voided Performed By: #### C UU, ADDONUAPLUS, UCREA, YUN, UROSMO #### [address] Lymphocytes (Bld) [#/Vol] 0.5 10*3/uL Low 1.00-4.8 [facility] Comment on above: Order Comment: Name Collection Type:: Voided Performed By: #### C UU, ADDONUAPLUS, UCREA, YUN, UROSMO #### [address] Lymphocytes/100 WBC (Bld) 5.2 % Normal . [facility] Comment on above: Order Comment: Name Collection Type:: Voided Performed By: #### C UU, ADDONUAPLUS, UCREA, YUN, UROSMO #### [address] MCH (RBC) [Entitic mass] 34.8 pg High 24.7-34.3 [facility] Comment on above: Order Comment: Name Collection Type:: Voided Performed By: #### C UU, ADDONUAPLUS, UCREA, YUN, UROSMO #### [address] MCV (RBC) [Entitic vol] 101.9 fL High 80-100 [facility] Comment on above: Order Comment: Name Collection Type:: Voided Performed By: #### C UU, ADDONUAPLUS, UCREA, YUN, UROSMO #### [address] Mean Corpuscular HGB Conc 34.2 g/dL Normal 32.0-35.0 [facility] Comment on above: Order Comment: Name Collection Type:: Voided Performed By: #### C UU, ADDONUAPLUS, UCREA, YUN, UROSMO #### [address] [place] [address] [place] Monocytes (Bld) [#/Vol] 0.7 10*3/uL Normal 0.0-0.8 [facility] Comment on above: Order Comment: Name Collection Type:: Voided Performed By: #### C UU, ADDONUAPLUS, UCREA, YUN, UROSMO #### [facility] [address] [place] [address] [place] Monocytes/100 WBC (Bld) 6.6 % Normal . [facility] Comment on above: Order Comment: Name Collection Type:: Voided Performed By: #### C UU, ADDONUAPLUS, UCREA, YUN, UROSMO #### [place] [address] [place] Neutrophils (Bld) [#/Vol] 8.8 10*3/uL High 1.8-7.7 [facility] Comment on above: Order Comment: Name Collection Type:: Voided Performed By: #### C UU, ADDONUAPLUS, UCREA, YUN, UROSMO #### [facility] [address] [place] [address] [place] Neutrophils/100 WBC (Bld) 87.9 % Normal . [facility] Comment on above: Order Comment: Name Collection Type:: Voided Performed By: #### C UU, ADDONUAPLUS, UCREA, YUN, UROSMO #### [facility] [address] [place] [address] [place] Nucleated RBC/100 WBC (Bld) [Ratio] 0.0 % Normal 0-0.5 [facility] Comment on above: Order Comment: Name Collection Type:: Voided Performed By: #### C UU, ADDONUAPLUS, UCREA, YUN, UROSMO #### [facility] [address] [place] [address] [place] Platelet mean volume (Bld) [Entitic vol] 6.3 fL Normal 6.3-10.7 [facility] Comment on above: Order Comment: Name Collection Type:: Voided Performed By: #### C UU, ADDONUAPLUS, UCREA, YUN, UROSMO #### [facility] [address] Platelets (Bld) [#/Vol] 219 10*3/uL Normal 150-450 [facility] Comment on above: Order Comment: Name Collection Type:: Voided Performed By: #### C UU, ADDONUAPLUS, UCREA, YUN, UROSMO #### [facility] [address] RBC (Bld) [#/Vol] 2.00 10*6/uL Low 3.60-5.00 [facility] Comment on above: Order Comment: Name Collection Type:: Voided Performed By: #### C UU, ADDONUAPLUS, UCREA, YUN, UROSMO #### [address] WBC (Bld) [#/Vol] 10.0 10*3/uL Normal 4.5-11.0 [facility] Comment on above: Order Comment: Name Collection Type:: Voided Performed By: #### C UU, ADDONUAPLUS, UCREA, YUN, UROSMO #### [address] Comprehensive Metabolic Pane kyler 11-04-2021 Albumin [Mass/Vol] 2.8 g/dL Low 3.2-5.5 [facility] Comment on above: Performed By: #### C UU, ADDONUAPLUS, UCREA, YUN, UROSMO #### [address] Albumin/Globulin [Mass ratio] 1.2 {ratio} Normal [facility] Comment on above: Performed By: #### C UU, ADDONUAPLUS, UCREA, YUN, UROSMO #### [address] ALP [Catalytic activity/Vol] 70 U/L Normal 32-92 [facility] Comment on above: Performed By: #### C UU, ADDONUAPLUS, UCREA, YUN, UROSMO #### [facility] [address] ALT [Catalytic activity/Vol] 15 U/L Normal 10-60 [facility] Comment on above: Performed By: #### C UU, ADDONUAPLUS, UCREA, YUN, UROSMO #### [facility] [address] AST [Catalytic activity/Vol] 14 U/L Normal 10-42 [facility] Comment on above: Performed By: #### C UU, ADDONUAPLUS, UCREA, YUN, UROSMO #### [facility] [address] Bilirubin [Mass/Vol] 0.4 mg/dL Normal 0.3-1.2 [facility] Comment on above: Performed By: #### C UU, ADDONUAPLUS, UCREA, YUN, UROSMO #### [facility] [address] Calcium [Mass/Vol] 8.4 mg/dL Normal 8.2-10.2 [facility] Comment on above: Performed By: #### C UU, ADDONUAPLUS, UCREA, YUN, UROSMO #### [facility] [address] Chloride [Moles/Vol] 94 mmol/L Low 95-114 [facility] Comment on above: Performed By: #### C UU, ADDONUAPLUS, UCREA, YUN, UROSMO #### [facility] [address] [place] [address] [place] CO2 [Moles/Vol] 22.9 mmol/L Normal 22.0-30.0 [facility] Comment on above: Performed By: #### C UU, ADDONUAPLUS, UCREA, YUN, UROSMO #### [facility] [address] Creatinine [Mass/Vol] 1.36 mg/dL High 0.44-1.03 [facility] Comment on above: Performed By: #### C UU, ADDONUAPLUS, UCREA, YUN, UROSMO #### [facility] [address] Creatinine Clr Calc Pharmacy 45.74 [facility] Comment on above: Result Comment: PERF ORMED BY: [place] [address] PATHOLOGIST MARRIAGE AND FAMILY COUNSELOR GERA CASTELLANOS M.D. Performed By: #### C UU, ADDONUAPLUS, UCREA, YUN, UROSMO #### [facility] [address] Estimated GFR ( Neela 46 [facility] Comment on above: Result Comment: GFR estimated reference range: According to KDOQI guidelines, <60 ml/min/1.73m2 is sufficient to diagnose a patient with chronic kidney disease. Performed By: #### C UU, ADDONUAPLUS, UCREA, YUN, UROSMO #### [facility] [address] Estimated GFR (Non- Am 38 [facility] Comment on above: Performed By: #### C UU, ADDONUAPLUS, UCREA, YUN, UROSMO #### [facility] [address] Globulin (S) [Mass/Vol] 2.4 g/dL [facility] Comment on above: Performed By: #### C UU, ADDONUAPLUS, UCREA, YUN, UROSMO #### [address] Glucose [Mass/Vol] 112 mg/dL High 70-100 [facility] Comment on above: Result Comment: [place] Glucose Reference Range is dependent on time and content of last meal. Glucose of more than 200 mg/dL in a nonstressed, ambulatory subject supports the diagnosis of Diabetes Mellitus. ADA recommended reference range Performed By: #### C UU, ADDONUAPLUS, UCREA, YUN, UROSMO #### [facility] [address] Potassium [Moles/Vol] 5.2 mmol/L High 3.5-5.1 [facility] Comment on above: Performed By: #### C UU, ADDONUAPLUS, UCREA, YUN, UROSMO #### [facility] [address] [place] [id number] [facility] Protein [Mass/Vol] 5.2 g/dL Low 6.1-7.9 [facility] Comment on above: Performed By: #### C UU, ADDONUAPLUS, UCREA, YUN, UROSMO #### [facility] [address] Sodium [Moles/Vol] 123 mmol/L Off scale low 136-146 [facility] Comment on above: Result Comment: Resu lts called at 1333 on 11/04/21 Performed By: #### C UU, ADDONUAPLUS, UCREA, YUN, UROSMO #### [facility] [address] Urea nitrogen [Mass/Vol] 24 mg/dL High 9-23 [facility] Comment on above: Performed By: #### C UU, ADDONUAPLUS, UCREA, YUN, UROSMO #### [facility] [address] [place] [id number] [facility] ECG 12 lead ECGon 11-04-2021 ECG 12 lead ECG [facility] [place] [address] [place] [address] Electrocardiograph Report Signed Patient: Linda Nascimento MR#: [id number] 840 : 1950 Acct:[id number] Age/Sex: 71 / F ADM Date: 11/04/21 Loc: Room: [address] [place] [address] Type: DIS IN Attending Dr: Javi Pearson MD Ordering Provider: Ivan Kendrick DO Date [...] Inferior leads Confirmed by Ivan Kendrick DO ([id number]) on 11/04/2021 7:43:30 PM Referred By: Electronically Signed By:Ivan Kendrick DO Transcribed By: MUS Signed By Ivan Kendrick DO 11/04 194 Normal [facility] Ferritinon 11-04-2021 Ferritin [Mass/Vol] 123.0 ng/mL Normal 11-306.8 [facility] Comment on above: Result Comment: PERF ORMED BY: [place] [address] PATHOLOGIST MARRIAGE AND FAMILY COUNSELOR GERA CASTELLANOS M.D. Performed By: #### F E and TIBC, WILDER #### [address] Iron and TIBC Profileon 10-11 % Iron Saturation 21.0 % Normal 20-50 [facility] Comment on above: Performed By: #### F E and TIBC, WILDER #### [address] Iron [Mass/Vol] 64 ug/dL Normal 40-150 [facility] Comment on above: Performed By: #### F E and TIBC, WILDER #### [address] Total Iron Binding Capacity 291 ug/dL Normal 255-450 [facility] Comment on above: Performed By: #### F E and TIBC, WILDER #### [address] Transferrin [Mass/Vol] 208 mg/dL Normal 180-380 [facility] Comment on above: Performed By: #### F E and TIBC, WILDER #### [address] LeukoReduced RBCon 05-26-202 2 LeukoReduced RBC NOT AVAILABLE Normal [facility] Osmolalityon 11-04-2021 Osmolality 271 mosm Low 278-305 [facility] Comment on above: Result Comment: PERF ORMED BY: [place] [address] PATHOLOGIST MARRIAGE AND FAMILY COUNSELOR GERA CASTELLANOS M.D. Performed By: #### C UU, ADDONUAPLUS, UCREA, YUN, UROSMO #### [address] Partial Thromboplastin Timeo n 11-04-2021 aPTT Coag (Bld) [Time] 26.7 s Normal 25.1-36.5 [facility] Comment on above: Result Comment: PERF ORMED BY: [place] [address] PATHOLOGIST MARRIAGE AND FAMILY COUNSELOR GERA CASTELLANOS M.D. Performed By: #### C UU, ADDONUAPLUS, UCREA, YUN, UROSMO #### [address] Potassiumon 11-04-2021 Potassium [Moles/Vol] 4.9 mmol/L Normal 3.5-5.1 [facility] Comment on above: Performed By: #### C UU, ADDONUAPLUS, UCREA, YUN, UROSMO #### [facility] [address] [place] [address] [place] Prothrombin Time INRon 11-04 INR Coag (PPP) [Relative time] 1.0 {INR} Normal [facility] Comment on above: Result Comment: INR [...] C UU, ADDONUAPLUS, UCREA, YUN, UROSMO #### [address] PT Coag (PPP) [Time] 11.8 s Normal 9.0-12.9 [facility] Comment on above: Performed By: #### C UU, ADDONUAPLUS, UCREA, YUN, UROSMO #### [address] Sodiumon 11-04-2021 Sodium [Moles/Vol] 125 mmol/L Low 136-146 [facility] Comment on above: Performed By: #### C UU, ADDONUAPLUS, UCREA, YUN, UROSMO #### [address] Anayeli Ag Negativeon 11-05-19 22 Anayeli Ag Negative Negative Normal Negative [facility] Comment on above: Result Comment: This is a duplicate Anayeli SARS Antigen ([employer]) result to be used for statistical tracking purpose only. PERFORMED BY: [address] [place] [address] PATHOLOGIST MARRIAGE AND FAMILY COUNSELOR GERA CASTELLANOS M.D. Performed By: #### C UU, ADDONUAPLUS, UCREA, YUN, UROSMO #### [address] Stool Occult Blood (Guaiac)o n 11-04-2021 Stool Occult Blood (Guaiac) Occult Blood Negative for Occult Blood by Guaiac Methodology Reference range = Negative PERFORMED BY: [address] [place] [address] PATHOLOGIST MARRIAGE AND FAMILY COUNSELOR GERA CASTELLANOS M.D. Normal [facility] Comment on above: Performed By: #### C UU, ADDONUAPLUS, UCREA, YUN, UROSMO #### [address] Thyroid Stimulating Hormoneo n 11-04-2021 TSH Qn 0.77 m[IU]/L Normal 0.45-5.33 [facility] Comment on above: Performed By: #### C UU, ADDONUAPLUS, UCREA, YUN, UROSMO #### [facility] [address] [place] [id number] [facility] Troponin I High Sensitivityo n 11-04-2021 Troponin I High Sensitivity 5 pg/mL Normal 0-15 [facility] Comment on above: Result Comment: PERF ORMED BY: [facility] [address] [place] [address] PATHOLOGIST MARRIAGE AND FAMILY COUNSELOR GERA CASTELLANOS M.D. Performed By: #### C UU, ADDONUAPLUS, UCREA, YUN, UROSMO #### [facility] [address] [place] [address] [place] Type and Screenon 11-04-2021 ABO and Rh group Nom (Bld) Blood group O Rh(D) positive Normal [facility] Comment on above: Order Comment: Trans fuse now? N Transfuse now? Y Number of units to transfuse now? 1 Transfuse now? Y Number of units to transfuse now? 1 Transfuse now? Y Number of units to transfuse now? 1 Transfuse now? Y Number of units to transfuse now? 1 Result Comment: PERF ORMED BY: [place] [address] PATHOLOGIST MARRIAGE AND FAMILY COUNSELOR GERA CASTELLANOS M.D. Vitamin B12on 11-04-2021 Cobalamin (Vitamin B12) [Mass/Vol] 882 pg/mL Normal 180-914 [facility] Comment on above: Performed By: #### C UU, ADDONUAPLUS, UCREA, YUN, UROSMO #### [facility] [address] [place] [id number] [place] Vitamin D 25 Hydroxy Totalon 11-04-2021 Vitamin D 25 Hydroxy Total 84.5 ng/mL Normal 30-100 [facility] Comment on above: Result Comment: LOKI MIN D STATUS 25(OH)VITAMIN D RANGE (ng/mL) Deficient <20 Insufficient 20 to <30 Sufficient 30 to 100 Reference: Maryam MF,[place] NC, Ángela SCHAEFER, et al. Evaluation,treatment, and prevention of vitamin D deficiency; an Endocrine Society clinical practice guideline. JCEM. 2010; 96(7):1911-30. PERFORMED BY: [place] [address] PATHOLOGIST MARRIAGE AND FAMILY COUNSELOR GERA CASTELLANOS M.D. Performed By: #### C UU, ADDONUAPLUS, UCREA, YUN, UROSMO #### [address] XR hip RT min 2V(w/wo pelvis )*on 11-04-2021 XR hip RT min 2V(w/wo pelvis)* [facility] [place] [address] [place] [address] XRay Report Signed Patient: Linda Nascimento MR#: [id number] 840 : 1950 Acct:[id number] Age/Sex: 71 / F ADM Date: 11/04/21 [...] Ambrocio Cintron M.D.11/04/2021 12:43 PM Dictation Location: [place] [address] Transcribed By: [facility] 11/04/21 1243 Dictated By: Ambrocio Cintron DO 11/04/21 1238 Signed By: 11/04/21 1243 [facility] XR knee LT 4V*on 11-04-2021 XR knee LT 4V* [facility] [address] [address] XRay Report Signed Patient: Linda Nascimento MR#: [id number] 840 : 1950 Acct:[id number] Age/Sex: 71 / F ADM Date: 11/04/21 Loc: ER Room: Type: [facility] ER Attending Dr: Ordering Provider: Ivan Kendrick [...] Ambrocio Cintron M.D.11/04/2021 2:36 PM Dictation Location: [place] [address] Transcribed By: [facility] 11/04/21 1436 Dictated By: Ambrocio Cintron DO 11/04/21 1433 Signed By: 11/04/21 1436 [facility] XR knee LT 2Von 11-03-2021 XR knee LT 2V [facility] [address] [address] XRay Report Signed Patient: Linda Nascimento MR#: [id number] 840 : 1950 Acct:[id number] Age/Sex: 71 / F ADM Date: 11/03/21 Loc: SOXD Room: Type: [facility] CLI Attending Dr: Emilie CASTLEC Ordering Provider: [...] Reymundo Madrid M.D.11/03/2021 4:01 PM Dictation Location: [place] [address] Transcribed By: [facility] 11/03/21 1601 Dictated By: Reymundo Madrid II, MD 11/03/21 1600 Signed By: 11/03/21 1601 [facility] MR lumbar spine wo conon MR lumbar spine wo [facility] [place] [address] [place] [address] MRI Report Signed Patient: Linda Nascimento MR#: [id number] 840 : 1950 Acct:[id number] Age/Sex: 71 / F ADM Date: 10/26/21 Loc: Room: Type: [facility] Attending Dr: Gunnar Fernandez DO Ordering Provider: [...] Reymundo Madrid M.D.10/26/2021 11:37 AM Dictation Location: [facility] Transcribed By: ROLF 10/26/21 1137 Dictated By: Reymundo Madrid II, MD 10/26/21 1127 Signed By: 10/26/21 1137 [facility] XR lumbar spine AP/LAT/FLX/E XTon 10-06-2021 XR lumbar spine AP/LAT/FLX/EXT [facility] [address] XRay Report Signed Patient: Linda Nascimento MR#: [id number] 840 : 1950 Acct:[id number] Age/Sex: 71 / F ADM Date: 10/06/21 Loc: [facility] Room: Type: [facility] Attending Dr: Gunnar Fernandez DO Ordering Provider: [...] Haines Jr., M.D.10/06/2021 4:07 PM Dictation Location: [facility] Transcribed By: ROLF 10/06/21 1607 Dictated By: Marin Haines Jr, MD 10/06/21 1600 Signed By: 10/06/21 1607 [facility] XR lumbar spine AP/LAT/FLX/EXT [facility] [employer] Other XR lumbar spine AP/LAT/FLX/EXT [facility] [employer] Other XR lumbar spine AP/LAT/FLX/EXT [address] [place] [address] [employer] Other XR lumbar spine AP/LAT/FLX/[place] [address] [employer] Other XR lumbar spine AP/LAT/FLX/EXT XRay Report [employer] Other XR lumbar spine AP/LAT/FLX/EXT Signed [employer] Other XR lumbar spine AP/LAT/FLX/EXT Patient: Linda Nascimento MR#: [id number] [employer] Other XR lumbar spine AP/LAT/FLX/EXT 840 [employer] Other XR lumbar spine AP/LAT/FLX/EXT : 1950 Acct:[id number] [employer] Other XR lumbar spine AP/LAT/FLX/EXT Age/Sex: 71 / F ADM Date: 10/06/21 [employer] Other XR lumbar spine AP/LAT/FLX/EXT Loc: [facility] Room: Type: REG CLI [employer] Other XR lumbar spine AP/LAT/FLX/EXT Attending Dr: Gunnar Fernandez DO [employer] Other XR lumbar spine AP/LAT/FLX/EXT Ordering Provider: Gunnar Fernandez DO [employer] Other XR lumbar spine AP/LAT/FLX/EXT Date of Service: 10/06/21 [employer] Other XR lumbar spine AP/LAT/FLX/EXT XR/XR lumbar spine AP/LAT/FLX/EXT: Lumbar pain [employer] Other XR lumbar spine AP/LAT/FLX/EXT Copies to: Gunnar Fernandez, [employer] Other XR lumbar spine AP/LAT/FLX/EXT Lumbar spine 10/06/2021. [employer] Other XR lumbar spine AP/LAT/FLX/EXT CLINICAL DATA: Low back pain with radiation to the buttocks. [employer] Other XR lumbar spine AP/LAT/FLX/EXT FINDINGS: 4 standing views of the lumbar spine were obtained including lateral views in the [employer] Other XR lumbar spine AP/LAT/FLX/EXT neutral, flexion, and extension positions. [employer] Other XR lumbar spine AP/LAT/FLX/EXT There is grade 2 spondylolisthesis measuring 17 mm at L4-L5. There is grade 1 spondylolisthesis [employer] Other XR lumbar spine AP/LAT/FLX/EXT measuring 8 mm at the lumbosacral junction. There is mild anterior malalignment of L3 on L4. Overall [employer] Other XR lumbar spine AP/LAT/FLX/EXT vertebral alignment does not significantly change with flexion or extension. There are disc space [employer] Other XR lumbar spine AP/LAT/FLX/EXT narrowing and facet arthritis in the lower lumbar spine. [employer] Other XR lumbar spine AP/LAT/FLX/EXT XR/XR lumbar spine AP/LAT/FLX/EXT [employer] Other XR lumbar spine AP/LAT/FLX/EXT IMPRESSION: Multilevel spondylolisthesis. No instability with flexion or extension. Disc space [employer] Other XR lumbar spine AP/LAT/FLX/EXT Impression dictated by: Marin Haines Jr., M.D.10/06/2021 4:07 PM [employer] Other XR lumbar spine AP/LAT/FLX/EXT Dictation Location: [facility]-- [employer] [facility] [employer] Other XR lumbar spine AP/LAT/FLX/EXT Transcribed By: ROLF 10/06/21 1607 [employer] Other XR lumbar spine AP/LAT/FLX/EXT Dictated By: Marin Haines Jr, MD 10/06/21 1600 [employer] Other XR lumbar spine AP/LAT/FLX/EXT Signed By: [employer] Other XR lumbar spine AP/LAT/FLX/EXT 10/06/21 160 [employer] Other BASIC METABOLIC PANELon 11-1 Calcium [Mass/Vol] 8.2 mg/dL Low 8.6-10.3 [facility] Comment on above: Order Comment: No: D o not add to previous draw Performed By: #### 0 0071 ####[facility] [place] [address], [place] Chloride [Moles/Vol] 106 mmol/L Normal 98-107 [facility] Comment on above: Order Comment: No: D o not add to previous draw Performed By: #### 0 0071 ####[facility] [place] [address], [place] CO2 [Moles/Vol] 23 mmol/L Normal 21-31 The [facility] Comment on above: Order Comment: No: D o not add to previous draw Performed By: #### 0 0071 ####[facility] [place] [address], [place] Creatinine [Mass/Vol] 0.98 mg/dL Normal 0.60-1.20 The [facility] Comment on above: Order Comment: No: D o not add to previous draw Performed By: #### 0 0071 ####[facility] [place] [address], [facility] eGFR- non- 56 ml/min/1.73sq m Abnormal >60 The [facility] Comment on above: Order Comment: No: D o not add to previous draw Result Comment: Calc ulation may not be valid for patients over 70 years Performed By: #### 0 0071 ####[facility] [place] [place] [address], [facility] GFR/1.73 sq M.predicted among blacks MDRD (S/P/Bld) [Vol rate/Area] mL/min/{1.73_m2} Normal >60 The [facility] Comment on above: Order Comment: No: D o not add to previous draw Result Comment: Calc ulation may not be valid for patients over 70 years Performed By: #### 0 0071 ####[facility] [place] [address], [facility] Glucose [Mass/Vol] 104 mg/dL High 70-100 The [facility] Comment on above: Order Comment: No: D o not add to previous draw Performed By: #### 0 0071 ####[facility] [place] [address], [facility] Potassium [Moles/Vol] 4.5 mmol/L Normal 3.5-5.1 The [facility] Comment on above: Order Comment: No: D o not add to previous draw Performed By: #### 0 0071 ####[facility] [place] [address], [facility] Sodium [Moles/Vol] 136 mmol/L Normal 136-145 The [facility] Comment on above: Order Comment: No: D o not add to previous draw Performed By: #### 0 0071 ####[facility] [place] [address], [place] Urea nitrogen [Mass/Vol] 14 mg/dL Normal 7-25 The [facility] Comment on above: Order Comment: No: D o not add to previous draw Performed By: #### 0 0071 ####[facility] [facility].[address] HEMATOCRITon 04-28-2021 Hematocrit (Bld) [Volume fraction] 27.6 % Low 36.0-45.0 [facility] Comment on above: Order Comment: No: D o not add to previous draw Performed By: #### 5 7307, 84994 #### [facility] [address] HEMOGLOBINon 04-28-2021 Hemoglobin (Bld) [Mass/Vol] 8.6 g/dL Low 12.0-15.0 The [facility] Comment on above: Order Comment: No: D o not add to previous draw Performed By: #### 5 7307, 61369 #### [facility] [address] CHEST AND LATERALon 04-27-20 21 CHEST AND LATERAL [facility] Department of Radiology [address] [place] [address] Patient Name: LINDA NASCIMENTO : 1950 Sex: F Age: Race: White Pt. Location: [id number] Patient Status: I Ordered Date: 04/27/2021 7:00:00 [...] leads. Electronically signed: Dwight Davila. Transcribed by: [email or web address], User Resident: Electronically Signed by: DWIGHT DAVILA @ 04/27/2021 10:35 AM Normal [facility] Comment on above: Order Comment: No: D o not add to previous draw BASIC METABOLIC PANELon 11- Calcium [Mass/Vol] 8.7 mg/dL Normal 8.6-10.3 [facility] Comment on above: Order Comment: No: D o not add to previous draw Performed By: #### 0 0071 ####[facility] [place] [place] [address], [facility] Chloride [Moles/Vol] 103 mmol/L Normal 98-107 The [facility] Comment on above: Order Comment: No: D o not add to previous draw Performed By: #### 0 0071 ####[facility] [place] [address], [place] CO2 [Moles/Vol] 24 mmol/L Normal 21-31 The [facility] Comment on above: Order Comment: No: D o not add to previous draw Performed By: #### 0 0071 ####[facility] [place] [address], [facility] Creatinine [Mass/Vol] 1.05 mg/dL Normal 0.60-1.20 The [facility] Comment on above: Order Comment: No: D o not add to previous draw Performed By: #### 0 0071 ####[facility] [place] [address], [facility] eGFR- non- 51 ml/min/1.73sq m Abnormal >60 The [facility] Comment on above: Order Comment: No: D o not add to previous draw Result Comment: Calc ulation may not be valid for patients over 70 years Performed By: #### 0 0071 ####[facility] [place] [address], [facility] GFR/1.73 sq M.predicted among blacks MDRD (S/P/Bld) [Vol rate/Area] mL/min/{1.73_m2} Normal >60 The [facility] Comment on above: Order Comment: No: D o not add to previous draw Result Comment: Calc ulation may not be valid for patients over 70 years Performed By: #### 0 0071 ####[facility] [place] [address], [facility] Glucose [Mass/Vol] 107 mg/dL High 70-100 [facility] Comment on above: Order Comment: No: D o not add to previous draw Performed By: #### 0 0071 ####[facility] [place] [address], [facility] Potassium [Moles/Vol] 4.6 mmol/L Normal 3.5-5.1 [facility] Comment on above: Order Comment: No: D o not add to previous draw Performed By: #### 0 0071 ####[facility] [place] [address], [facility] Sodium [Moles/Vol] 134 mmol/L Low 136-145 The [facility] Comment on above: Order Comment: No: D o not add to previous draw Performed By: #### 0 0071 ####[facility] [place] [address], [facility] Urea nitrogen [Mass/Vol] 21 mg/dL Normal 7-25 The [facility] Comment on above: Order Comment: No: D o not add to previous draw Performed By: #### 0 0071 ####[facility] [place] [address], [facility] CBC W/DIFFon 04-26-2021 ABS IMM GRANS 0.0 10*3/uL Normal 0.0-0.2 The [facility] Comment on above: Order Comment: No: D o not add to previous draw Performed By: #### 5 0103 #### [facility] [address] [place] [address], [facility] ABS NEUTROPHILS 4.8 10*3/uL Normal 1.6-7.6 The [facility] Comment on above: Order Comment: No: D o not add to previous draw Performed By: #### 5 3 #### [facility] [address] [place] [address], [facility] Basophils (Bld) [#/Vol] 0.0 10*3/uL Normal 0.0-0.2 The [facility] Comment on above: Order Comment: No: D o not add to previous draw Performed By: #### 5 0103 #### [facility] [address] [place] [address], [facility] Basophils/100 WBC (Bld) 0.6 % Normal 0.0-1.0 The [facility] Comment on above: Order Comment: No: D o not add to previous draw Performed By: #### 5 0103 #### [facility] [address] [place] [address], [facility] Eosinophils (Bld) [#/Vol] 0.4 10*3/uL Normal 0.0-0.5 The [facility] Comment on above: Order Comment: No: D o not add to previous draw Performed By: #### 5 3 #### [facility] [address] [place] [address], [facility] Eosinophils/100 WBC (Bld) 6.0 % Normal 0.0-6.0 The [facility] Comment on above: Order Comment: No: D o not add to previous draw Performed By: #### 5 3 #### [facility] [address] [place] [address], [facility] Erythrocyte distribution width (RBC) [Ratio] 13.1 % Normal 11.5-15.0 The [facility] Comment on above: Order Comment: No: D o not add to previous draw Performed By: #### 5 3 #### [facility] [address] [place] [address], [facility] Hematocrit (Bld) [Volume fraction] 27.8 % Low 36.0-45.0 The [facility] Comment on above: Order Comment: No: D o not add to previous draw Performed By: #### 5 3 #### [facility] [address] [place] [address], [facility] Hemoglobin (Bld) [Mass/Vol] 9.0 g/dL Low 12.0-15.0 The [facility] Comment on above: Order Comment: No: D o not add to previous draw Performed By: #### 5 0103 #### [facility] [address] [place] [address], [facility] IMMATURE GRANS 0.3 % Normal 0.0-1.0 [facility] Comment on above: Order Comment: No: D o not add to previous draw Performed By: #### 5 3 #### [facility] [address] [place] [address], [facility] Lymphocytes (Bld) [#/Vol] 0.7 10*3/uL Low 1.2-4.0 The [facility] Comment on above: Order Comment: No: D o not add to previous draw Performed By: #### 5 0103 #### [facility] [address] [place] [address], [facility] Lymphocytes/100 WBC (Bld) 9.8 % Low 20.0-45.0 The [facility] Comment on above: Order Comment: No: D o not add to previous draw Performed By: #### 5 0103 #### [facility] [address] [place] [address], [facility] MCH (RBC) [Entitic mass] 33.5 pg High 27.0-33.0 The [facility] Comment on above: Order Comment: No: D o not add to previous draw Performed By: #### 5 0103 #### [facility] [address] [place] [address], [facility] MCHC (RBC) [Mass/Vol] 32.4 g/dL Normal 32.0-35.0 The [facility] Comment on above: Order Comment: No: D o not add to previous draw Performed By: #### 5 0103 #### [facility] [address] [place] [address], [facility] MCV (RBC) [Entitic vol] 103.3 fL High 82.0-98.0 The [facility] Comment on above: Order Comment: No: D o not add to previous draw Performed By: #### 5 0103 #### [facility] [address] [place] [address], [facility] Monocytes (Bld) [#/Vol] 0.7 10*3/uL Normal 0.1-1.0 The [facility] Comment on above: Order Comment: No: D o not add to previous draw Performed By: #### 5 0103 #### [facility] [address] [place] [address], [place] MONOS 10.4 % Normal 5.0-12.0 The [facility] Comment on above: Order Comment: No: D o not add to previous draw Performed By: #### 5 3 #### [facility] [address] [place] [address], [place] Neutrophils/100 WBC (Bld) 72.9 % High 40.0-72.0 [facility] Comment on above: Order Comment: No: D o not add to previous draw Performed By: #### 5 3 #### [facility] [address] [place] [address], [place] Nucleated RBC/100 WBC (Bld) [Ratio] 0 % Normal 0-0 [facility] Comment on above: Order Comment: No: D o not add to previous draw Performed By: #### 5 3 #### [facility] [address] [place] [address], [place] PLAT CNT 213 10*3/uL Normal 150-400 The [facility] Comment on above: Order Comment: No: D o not add to previous draw Performed By: #### 5 0103 #### [facility] [address] [place] [address], [place] RBC (Bld) [#/Vol] 2.69 10*6/uL Low 3.80-5.00 The [facility] Comment on above: Order Comment: No: D o not add to previous draw Performed By: #### 5 0103 #### [facility] [address] [place] [address], [place] WBC (Bld) [#/Vol] 6.62 10*3/uL Normal 4.00-10.60 The [facility] Comment on above: Order Comment: No: D o not add to previous draw Performed By: #### 5 3 #### [facility] [address] Cardiovascular Lab Reporton 04-26-2021 Cardiovascular Lab Report [facility] Patient Name: Linda Nascimento [facility] Lisa MR #: [id number] Department of Physician: Enoch Frankel MD Medicine Service Date: 04/26/2021 Division of Birthdate: 1950 Cardiology Room #: [id number] Adult Cardiovascular Services [address] [place], [place] [address] Cardiovascular Laboratory Report PACEMAKER IMPLANT PROCEDURE NOTE [...] using modified seldinger technique using a 5 Hebrew micro-puncture needle on two occasions and 0.35 wires were placed. Local infiltration of 1% Lidocaine was performed, and an incision was created in the left upper chest. Dissection was then performed using cautery down to the fascial plane above the muscle and a small pocket was created for the device. 6 Hebrew Safesheaths were placed over the wire. An active fixation [employer] pacing lead was then delivered through the 6Fsheath to the right ventricle. After confirmation of lead position on orthogonal views (GONZALES and ROMANIAN) to confirm septal position, the screw was activated, and the lead was placed in the right ventricular mid cavity towards the septum. After confirmation of good sensing parameters, injury pattern and pacing thresholds, 10V pacing was done and no diaphragmatic stimulation was noted. It was then secured in the pocket using three 1-0 Silk sutures. Then an active fixation [employer] lead was delivered through the 6Fsheath to the right atrial appendage. After confirmation of lead position on orthogonal views (GONZALES and ROMANIAN), the screw was activated. RA lead was [...] immediate procedural complications were noted. Device info: [employer]ala[employer]rice Ordaz Model# 8DRT Serial# [id number] RA lead: Model# Lucian Diaz S53 Serial# [id number] Sensin.9mV Threshold: 1.1V@0.5ms Impedance: 429 Ohms RV lead: Model (more content not included)... Normal The [facility] BASIC METABOLIC PANELon 11-1 Calcium [Mass/Vol] 8.6 mg/dL Normal 8.6-10.3 [facility] Comment on above: Order Comment: No: D o not add to previous draw Performed By: #### 0 0071 ####[facility] [place] [address], [facility] Chloride [Moles/Vol] 101 mmol/L Normal 98-107 The [facility] Comment on above: Order Comment: No: D o not add to previous draw Performed By: #### 0 0071 ####[facility] [place] [address], [facility] CO2 [Moles/Vol] 24 mmol/L Normal 21-31 The [facility] Comment on above: Order Comment: No: D o not add to previous draw Performed By: #### 0 0071 ####[facility] [place] [address], [facility] Creatinine [Mass/Vol] 1.36 mg/dL High 0.60-1.20 [facility] Comment on above: Order Comment: No: D o not add to previous draw Performed By: #### 0 0071 ####[facility] [place] [address], [facility] eGFR- 46 ml/min/1.73sq m Abnormal >60 The [facility] Comment on above: Order Comment: No: D o not add to previous draw Result Comment: Calc ulation may not be valid for patients over 70 years Performed By: #### 0 0071 ####[facility] [place] [address], [facility] eGFR- non- 39 ml/min/1.73sq m Abnormal >60 The [facility] Comment on above: Order Comment: No: D o not add to previous draw Result Comment: Calc ulation may not be valid for patients over 70 years Performed By: #### 0 0071 ####[facility] [place] [address], [place] Glucose [Mass/Vol] 98 mg/dL Normal 70-100 The [facility] Comment on above: Order Comment: No: D o not add to previous draw Performed By: #### 0 0071 ####[facility] [place] [address], [facility] Potassium [Moles/Vol] 4.4 mmol/L Normal 3.5-5.1 The [facility] Comment on above: Order Comment: No: D o not add to previous draw Performed By: #### 0 0071 ####[facility] [place] [address], [place] Sodium [Moles/Vol] 132 mmol/L Low 136-145 The [facility] Comment on above: Order Comment: No: D o not add to previous draw Performed By: #### 0 0071 ####[facility] [place] [address], [facility] Urea nitrogen [Mass/Vol] 22 mg/dL Normal 7-25 The [facility] Comment on above: Order Comment: No: D o not add to previous draw Performed By: #### 0 0071 ####[facility] [place] [address], [facility] HEMATOCRITon 04-25-2021 Hematocrit (Bld) [Volume fraction] 28.3 % Low 36.0-45.0 The [facility] Comment on above: Order Comment: No: D o not add to previous draw Performed By: #### 5 7307, 01292 #### [facility] [address] [place] [address], [facility] HEMOGLOBINon 04-25-2021 Hemoglobin (Bld) [Mass/Vol] 9.0 g/dL Low 12.0-15.0 The [facility] Comment on above: Order Comment: No: D o not add to previous draw Performed By: #### 9 2097, 68003 #### [facility] [address] [place] [address], [facility] BASIC METABOLIC PANELon 04-12 Calcium [Mass/Vol] 8.8 mg/dL Normal 8.6-10.3 [facility] Comment on above: Order Comment: No: D o not add to previous draw Performed By: #### 1 0, [id number] ####[facility] [place] [address], [facility] Chloride [Moles/Vol] 101 mmol/L Normal 98-107 The [facility] Comment on above: Order Comment: No: D o not add to previous draw Performed By: #### 1 69, 08307 ####[facility] [place] [address], [facility] CO2 [Moles/Vol] 26 mmol/L Normal 21-31 The [facility] Comment on above: Order Comment: No: D o not add to previous draw Performed By: #### 1 69, 19663 ####[facility] [place] [address], [facility] Creatinine [Mass/Vol] 1.17 mg/dL Normal 0.60-1.20 The [facility] Comment on above: Order Comment: No: D o not add to previous draw Performed By: #### 1 69, 07143 ####[facility] [place] [address], [facility] eGFR- 55 ml/min/1.73sq m Abnormal >60 The [facility] Comment on above: Order Comment: No: D o not add to previous draw Result Comment: Calc ulation may not be valid for patients over 70 years Performed By: #### 1 69, 10905 ####[facility] [place] [address], [facility] eGFR- non- 45 ml/min/1.73sq m Abnormal >60 The [facility] Comment on above: Order Comment: No: D o not add to previous draw Result Comment: Calc ulation may not be valid for patients over 70 years Performed By: #### 1 69, 80704 ####[facility] [id number], [facility] Glucose [Mass/Vol] 102 mg/dL High 70-100 The [facility] Comment on above: Order Comment: No: D o not add to previous draw Performed By: #### 1 69, 92100 ####[place] [address] [place] [address], [facility] Potassium [Moles/Vol] 4.5 mmol/L Normal 3.5-5.1 [facility] Comment on above: Order Comment: No: D o not add to previous draw Performed By: #### 1 69, 05078 ####[facility] [id number], [facility] Sodium [Moles/Vol] 133 mmol/L Low 136-145 The [facility] Comment on above: Order Comment: No: D o not add to previous draw Performed By: #### 1 69, 31858 ####[facility] [id number], [facility] Urea nitrogen [Mass/Vol] 20 mg/dL Normal 7-25 The [facility] Comment on above: Order Comment: No: D o not add to previous draw Performed By: #### 1 69, 55746 ####[facility] [id number], [facility] HEMOGLOBINon 04-24-2021 Hemoglobin (Bld) [Mass/Vol] 10.0 g/dL Low 12.0-15.0 The [facility] Comment on above: Order Comment: Yes: Add to Previous draw if able NEEDS DRAWN. NO LAV TUBE FROM AM LABS Performed By: #### 9 2088 #### [facility] [address] [place] [address], [facility] MAGNESIUM BLOODon 04-24-2021 Magnesium [Mass/Vol] 2.1 mg/dL Normal 1.9-2.7 [facility] Comment on above: Order Comment: No: D o not add to previous draw Performed By: #### 1 0, 53937 ####[facility] [place] [address], [facility] BASIC METABOLIC PANELon 04-12 Calcium [Mass/Vol] 8.4 mg/dL Low 8.6-10.3 [facility] Comment on above: Order Comment: Unkno wn Performed By: #### 1 0070, 89618, 83194 ####[facility] [place] [address], [facility] Chloride [Moles/Vol] 100 mmol/L Normal 98-107 [facility] Comment on above: Order Comment: Unkno wn Performed By: #### 1 0, 17064, 04286 ####[facility] [place] [address], [facility] CO2 [Moles/Vol] 25 mmol/L Normal 21-31 The [facility] Comment on above: Order Comment: Unkno wn Performed By: #### 1 0070, 89100, 61225 ####[facility] [place] [address], [facility] Creatinine [Mass/Vol] 1.30 mg/dL High 0.60-1.20 [facility] Comment on above: Order Comment: Unkno wn Performed By: #### 1 0070, 99458, 39061 ####[facility] [place] [address], [facility] eGFR- 49 ml/min/1.73sq m Abnormal >60 The [facility] Comment on above: Order Comment: Unkno wn Result Comment: Calc ulation may not be valid for patients over 70 years Performed By: #### 1 0070, 86574, 78055 ####[facility] [place] [address], [facility] eGFR- non- 40 ml/min/1.73sq m Abnormal >60 The [facility] [place] Comment on above: Order Comment: Unkno wn Result Comment: Calc ulation may not be valid for patients over 70 years Performed By: #### 1 0070, 38741, 82967 ####[facility] [place] [place] [address], [facility] Glucose [Mass/Vol] 93 mg/dL Normal 70-100 The [facility] Comment on above: Order Comment: Unkno wn Performed By: #### 1 0, 76232, 20260 ####[facility] [place] [place] [address], [facility] Potassium [Moles/Vol] 4.1 mmol/L Normal 3.5-5.1 The [facility] Comment on above: Order Comment: Unkno wn Performed By: #### 1 0, 52704, 91281 ####[facility] [place] [place] [address], [place] Sodium [Moles/Vol] 133 mmol/L Low 136-145 The [facility] Comment on above: Order Comment: Unkno wn Performed By: #### 1 0070, 55514, 21266 ####[facility] [place] [place] [address], [place] Urea nitrogen [Mass/Vol] 20 mg/dL Normal 7-25 The [facility] Comment on above: Order Comment: Unkno wn Performed By: #### 1 0, 60511, 64596 ####[facility] [place] [address], [facility] CBC W/DIFFon 04-23-2021 ABS IMM GRANS 0.1 10*3/uL Normal 0.0-0.2 The [facility] Comment on above: Order Comment: Unkno wn Performed By: #### 5 0103 #### [facility] [address] [place] [address], [facility] ABS NEUTROPHILS 7.8 10*3/uL High 1.6-7.6 The [facility] Comment on above: Order Comment: Unkno wn Performed By: #### 5 0103 #### [facility] [address] [place] [address], [facility] Basophils (Bld) [#/Vol] 0.1 10*3/uL Normal 0.0-0.2 The [facility] Comment on above: Order Comment: Unkno wn Performed By: #### 5 0103 #### [facility] [address] [place] [address], [facility] Basophils/100 WBC (Bld) 0.5 % Normal 0.0-1.0 The [facility] Comment on above: Order Comment: Unkno wn Performed By: #### 5 3 #### [facility] [address] [place] [address], [facility] Eosinophils (Bld) [#/Vol] 0.4 10*3/uL Normal 0.0-0.5 The [facility] Comment on above: Order Comment: Unkno wn Performed By: #### 5 0103 #### [facility] [address] [place] [address], [facility] Eosinophils/100 WBC (Bld) 3.5 % Normal 0.0-6.0 The [facility] Comment on above: Order Comment: Unkno wn Performed By: #### 5 3 #### [facility] [address] [facility]. [address] Erythrocyte distribution width (RBC) [Ratio] 13.2 % Normal 11.5-15.0 The [facility] Comment on above: Order Comment: Unkno wn Performed By: #### 5 0103 #### [facility] [address] [place] [id number], [facility] Hematocrit (Bld) [Volume fraction] 29.2 % Low 36.0-45.0 The [facility] Comment on above: Order Comment: Unkno wn Performed By: #### 5 0103 #### [facility] [address] [place] [address], [facility] Hemoglobin (Bld) [Mass/Vol] 9.3 g/dL Low 12.0-15.0 The [facility] Comment on above: Order Comment: Unkno wn Performed By: #### 5 0103 #### [facility] [address] [place] [address], [facility] IMMATURE GRANS 0.6 % Normal 0.0-1.0 The [facility] Comment on above: Order Comment: Unkno wn Performed By: #### 5 0103 #### [facility] [address] [place] [address], [facility] Lymphocytes (Bld) [#/Vol] 0.7 10*3/uL Low 1.2-4.0 The [facility] Comment on above: Order Comment: Unkno wn Performed By: #### 5 0103 #### [facility] [address] [place] [address], [facility] Lymphocytes/100 WBC (Bld) 6.8 % Low 20.0-45.0 The [facility] Comment on above: Order Comment: Unkno wn Performed By: #### 5 3 #### [facility] [address] [place] [address], [facility] MCH (RBC) [Entitic mass] 33.5 pg High 27.0-33.0 The [facility] Comment on above: Order Comment: Unkno wn Performed By: #### 5 0103 #### [facility] [address] [place] [address], [facility] MCHC (RBC) [Mass/Vol] 31.8 g/dL Low 32.0-35.0 The [facility] Comment on above: Order Comment: Unkno wn Performed By: #### 5 0103 #### [facility] [address] [place] [address], [facility] MCV (RBC) [Entitic vol] 105.0 fL High 82.0-98.0 The [facility] Comment on above: Order Comment: Unkno wn Performed By: #### 5 0103 #### [facility] [address] [place] [address], [facility] Monocytes (Bld) [#/Vol] 1.0 10*3/uL Normal 0.1-1.0 The [facility] Comment on above: Order Comment: Unkno wn Performed By: #### 5 0103 #### [facility] [address] [place] [address], [facility] MONOS 10.0 % Normal 5.0-12.0 The [facility] Comment on above: Order Comment: Unkno wn Performed By: #### 5 0103 #### [facility] [address] [place] [address], [facility] Neutrophils/100 WBC (Bld) 78.6 % High 40.0-72.0 The [facility] Comment on above: Order Comment: Unkno wn Performed By: #### 5 3 #### [facility] [address] [place] [address], [facility] Nucleated RBC/100 WBC (Bld) [Ratio] 0 % Normal 0-0 The [facility] Comment on above: Order Comment: Unkno wn Performed By: #### 5 3 #### [facility] [address] [place] [address], [facility] PLAT CNT 227 10*3/uL Normal 150-400 The [facility] [place] Comment on above: Order Comment: Unkno wn Performed By: #### 5 0103 #### [facility] [address] RBC (Bld) [#/Vol] 2.78 10*6/uL Low 3.80-5.00 The [facility] Comment on above: Order Comment: Unkno wn Performed By: #### 5 0103 #### [facility] [address] [place] [address], [facility] WBC (Bld) [#/Vol] 9.87 10*3/uL Normal 4.00-10.60 The [facility] Comment on above: Order Comment: Unkno wn Performed By: #### 5 0103 #### [facility] [address] MAGNESIUM BLOODon 04-23-2021 Magnesium [Mass/Vol] 2.1 mg/dL Normal 1.9-2.7 The [facility] Comment on above: Order Comment: Unkno wn Performed By: #### 1 0070, 23950, 63001 ####[facility] PHOSPHORUS BLOODon Phosphate [Mass/Vol] 2.8 mg/dL Normal 2.5-5.0 The [facility] Comment on above: Order Comment: Unkno wn Performed By: #### 1 0, 36398, 42614 ####[facility] APTTon 04-22-2021 aPTT Coag (Bld) [Time] 27.6 s Normal 25.0-35.0 The [facility] Comment on above: Order Comment: No: [...] THIS PURPOSE. Performed By: #### 5 7307, 29888 #### [facility] [address] [place] [address], [facility] BASIC METABOLIC PANELon 11-1 Calcium [Mass/Vol] 8.8 mg/dL Normal 8.6-10.3 [facility] Comment on above: Order Comment: No: D o not add to previous draw Performed By: #### 4 1000, 68470, 74709, 96104 ####[facility] [place] [address], [facility] Chloride [Moles/Vol] 99 mmol/L Normal 98-107 [facility] Comment on above: Order Comment: No: D o not add to previous draw Performed By: #### 4 1000, 60792, 10668, 12977 ####[facility] [place] [address], [facility] CO2 [Moles/Vol] 27 mmol/L Normal 21-31 The [facility] Comment on above: Order Comment: No: D o not add to previous draw Performed By: #### 4 1000, 18133, 59752, 68498 ####[facility] [place] [address], [facility] Creatinine [Mass/Vol] 1.39 mg/dL High 0.60-1.20 [facility] Comment on above: Order Comment: No: D o not add to previous draw Performed By: #### 4 1000, 14219, 56671, 54012 ####[facility] [place] [address], [facility] eGFR- 45 ml/min/1.73sq m Abnormal >60 The [facility] [place] Comment on above: Order Comment: No: D o not add to previous draw Result Comment: Calc ulation may not be valid for patients over 70 years Performed By: #### 4 1000, 55377, 11891, 23432 ####[facility] [place] [address], [facility] eGFR- non- 37 ml/min/1.73sq m Abnormal >60 The [facility] [place] Comment on above: Order Comment: No: D o not add to previous draw Result Comment: Calc ulation may not be valid for patients over 70 years Performed By: #### 4 1000, 39614, 95385, 32715 ####[facility] [place] [address], [facility] Glucose [Mass/Vol] 91 mg/dL Normal 70-100 The [facility] Comment on above: Order Comment: No: D o not add to previous draw Performed By: #### 4 1000, 80826, 28266, 27426 ####[facility] [place] [address], [facility] Potassium [Moles/Vol] 4.4 mmol/L Normal 3.5-5.1 [facility] Comment on above: Order Comment: No: D o not add to previous draw Performed By: #### 4 1000, 18441, 13870, 60007 ####[facility] [place] [address], [facility] Sodium [Moles/Vol] 133 mmol/L Low 136-145 The [facility] Comment on above: Order Comment: No: D o not add to previous draw Performed By: #### 4 1000, 21120, 16271, 41661 ####[facility] [place] [address], [place] Urea nitrogen [Mass/Vol] 24 mg/dL Normal 7-25 The [facility] Comment on above: Order Comment: No: D o not add to previous draw Performed By: #### 4 1000, 21389, 74758, 39674 ####[facility] CBC W/DIFFon 04-22-2021 ABS IMM GRANS 0.0 10*3/uL Normal 0.0-0.2 The [facility] Comment on above: Performed By: #### 5 0103 #### [facility] [address] [place] [address], [facility] ABS NEUTROPHILS 5.8 10*3/uL Normal 1.6-7.6 The [facility] Comment on above: Performed By: #### 5 0103 #### [facility] [address] [place] [address], [facility] Basophils (Bld) [#/Vol] 0.1 10*3/uL Normal 0.0-0.2 The [facility] Comment on above: Performed By: #### 5 0103 #### [facility] [address] [place] [address], [facility] Basophils/100 WBC (Bld) 0.6 % Normal 0.0-1.0 The [facility] Comment on above: Performed By: #### 5 0103 #### [facility] [address] [place] [address], [facility] Eosinophils (Bld) [#/Vol] 0.2 10*3/uL Normal 0.0-0.5 The [facility] Comment on above: Performed By: #### 5 0103 #### [facility] [address] [place] [address], [facility] Eosinophils/100 WBC (Bld) 2.7 % Normal 0.0-6.0 The [facility] Comment on above: Performed By: #### 5 0103 #### [facility] [address] [place] [address], [facility] Erythrocyte distribution width (RBC) [Ratio] 13.0 % Normal 11.5-15.0 The [facility] Comment on above: Performed By: #### 5 0103 #### [facility] [address] [facility] [place] [address], [facility] Hematocrit (Bld) [Volume fraction] 29.2 % Low 36.0-45.0 The [facility] Comment on above: Performed By: #### 3 #### [facility] [address] [place] [address], [facility] Hemoglobin (Bld) [Mass/Vol] 9.6 g/dL Low 12.0-15.0 The [facility] Comment on above: Performed By: #### 3 #### [facility] [address] [place] [address], [facility] IMMATURE GRANS 0.5 % Normal 0.0-1.0 The [facility] Comment on above: Performed By: #### 102 #### [facility] [address] Lymphocytes (Bld) [#/Vol] 1.1 10*3/uL Low 1.2-4.0 The [facility] Comment on above: Performed By: #### 102 #### [facility] [address] [place] [address], [facility] Lymphocytes/100 WBC (Bld) 13.4 % Low 20.0-45.0 The [facility] Comment on above: Performed By: #### 5 3 #### [facility] [address] [facility]. [address] MCH (RBC) [Entitic mass] 33.1 pg High 27.0-33.0 The [facility] Comment on above: Performed By: #### 5 3 #### [facility] [address] [place] [address], [facility] MCHC (RBC) [Mass/Vol] 32.9 g/dL Normal 32.0-35.0 The [facility] Comment on above: Performed By: #### 3 #### [facility] [address] [place] [address], [facility] MCV (RBC) [Entitic vol] 100.7 fL High 82.0-98.0 [facility] Comment on above: Performed By: #### 5 3 #### [facility] [address] [place] [address], [facility] Monocytes (Bld) [#/Vol] 0.7 10*3/uL Normal 0.1-1.0 The [facility] Comment on above: Performed By: #### 102 #### [facility] [address] [place] [address], [facility] MONOS 9.1 % Normal 5.0-12.0 The [facility] Comment on above: Performed By: #### 102 #### [facility] [address] [place] [address], [facility] Neutrophils/100 WBC (Bld) 73.7 % High 40.0-72.0 The [facility] Comment on above: Performed By: #### 102 #### [facility] [address] [place] [address], [facility] Nucleated RBC/100 WBC (Bld) [Ratio] 0 % Normal 0-0 The [facility] Comment on above: Performed By: #### 5 3 #### [facility] [address] [place] [address], [facility] PLAT CNT 234 10*3/uL Normal 150-400 The [facility] [place] Comment on above: Performed By: #### 3 #### [facility] [address] [facility] [place] [address], [facility] RBC (Bld) [#/Vol] 2.90 10*6/uL Low 3.80-5.00 [facility] Comment on above: Performed By: #### 3 #### [facility] [address] WBC (Bld) [#/Vol] 7.81 10*3/uL Normal 4.00-10.60 The [facility] Comment on above: Performed By: #### 5 0103 #### [facility] [address] [place] [address], [facility] FERRITINon 04-22-2021 Ferritin [Mass/Vol] 74 ng/mL Normal 11-307 The [facility] Comment on above: Order Comment: No: D o not add to previous draw Performed By: #### 8 4044, 33773, 67358, 27396, 50805, 82962 ####[facility] FOLATE SERUMon 04-22-2021 SERUM FOLATE 29.00 ng/mL Normal 6.60-1000.00 [facility] Comment on above: Order Comment: No: D o not add to previous draw Result Comment: Norm al range reflects World Health Organization International Standard Performed By: #### 8 4044, 96559, 24319, 10525, 15222, 07185 ####[facility] HAPTOGLOBINon 04-22-2021 HAPTOGLOBIN 302 mg/dL High 26-164 The [facility] [place] Comment on above: Order Comment: No: D o not add to previous draw Performed By: #### 3 0103 #### [facility] [address] [place] [address], [facility] KNEE LEFT 1 OR 2 VWSon 04-22 KNEE LEFT 1 OR 2 VWS [facility] Department of Radiology [address] [place] [id number] Patient Name: LINDA NASCIMENTO : 1950 Sex: F Age: Race: White Pt. Location: [id number] Patient Status: I Ordered Date: 04/22/2021 2:30:00 [...] report. Electronically signed: Boris Jara. Transcribed by: [email or web address], User Resident: NITHIN GARAY Electronically Signed by: BORIS JARA @ 04/22/2021 03:09 AM I personally read this/these film(s) with this resident Normal The [facility] Comment on above: Order Comment: No: D o not add to previous draw KNEE RIGHT 1 OR 2 VWSon 04-12 KNEE RIGHT 1 OR 2 S [facility] Department of Radiology [address] [place] [address] Patient Name: LINDA NASCIMENTO : 1950 Sex: F Age: Race: White Pt. Location: [id number] Patient Status: I Ordered Date: 04/22/2021 2:30:00 AM Completed Date: 04/22/2021 02:52 AM Requesting Provider: GUNNAR CHRISTIANSON Attending Provider: ROBERTA VELA Report Copy To: Signs & Symptoms: Pain ( specify Location) History: See Comments Comments: evaluate for FX Exam: KNEE RIGHT 1 OR 2 [facility] KNEE RIGHT 1 OR 2 [facility] 04/22/2021 2:52 AM CLINICAL INDICATIONS: Pain [...] report. Electronically signed: Boris Jara. Transcribed by: [email or web address], User Resident: NITHIN GARAY Electronically Signed by: BORIS JARA @ 04/22/2021 03:09 AM I personally read this/these film(s) with this resident Normal The [facility] Comment on above: Order Comment: No: D o not add to previous draw LDH BLOODon 04-22-2021 LDH 232 Units/L Normal 140-271 The [facility] [place] Comment on above: Order Comment: No: D o not add to previous draw Performed By: #### 8 4044, 17466, 91879, 74903, 17177, 77659 ####[facility] [place] [address], [place] LIVER BATTERYon 04-22-2021 Albumin [Mass/Vol] 3.9 g/dL Normal 3.5-5.7 [facility] Comment on above: Order Comment: No: D o not add to previous draw Performed By: #### 5 7307, 63085 #### [facility] [address] [place] [address], [place] ALKALINE PHOSPH 74 IU/L Normal 34-104 [facility] Comment on above: Order Comment: No: D o not add to previous draw Performed By: #### 5 7307, 15680 #### [facility] [address] [place] [address], [place] ALT [Catalytic activity/Vol] 9 U/L Normal 7-52 The [facility] Comment on above: Order Comment: No: D o not add to previous draw Performed By: #### 5 7307, 81413 #### [facility] [address] [place] [address], [place] AST [Catalytic activity/Vol] 19 U/L Normal 13-39 The [facility] Comment on above: Order Comment: No: D o not add to previous draw Performed By: #### 5 7307, 93771 #### [facility] [address] [place] [address], [place] Bilirubin [Mass/Vol] 0.5 mg/dL Normal 0.3-1.0 The [facility] Comment on above: Order Comment: No: D o not add to previous draw Performed By: #### 5 7307, 11734 #### [facility] [address] [place] [address], [facility] Bilirubin.direct [Mass/Vol] 0.1 mg/dL Normal 0.0-0.2 The [facility] Comment on above: Order Comment: No: D o not add to previous draw Performed By: #### 5 7307, 26037 #### [facility] [address] [place] [address], [facility] Protein [Mass/Vol] 6.5 g/dL Normal 6.0-8.3 The [facility] Comment on above: Order Comment: No: D o not add to previous draw Performed By: #### 5 7307, 40154 #### [facility] [address] [place] [address], [facility] MAGNESIUM BLOODon 04-22-2021 Magnesium [Mass/Vol] 2.0 mg/dL Normal 1.9-2.7 The [facility] Comment on above: Order Comment: No: D o not add to previous draw Performed By: #### 4 1000, 25822, 14215, 08920 ####[facility] [place] [address], [facility] PERIPHERAL SMEARon 1 Nucleated RBC/100 WBC (Bld) [Ratio] 0 % Normal 0-0 The [facility] Comment on above: Order Comment: No: D o not add to previous draw Performed By: #### 5 7307, 12608 #### [facility] [address] [place] [address], [facility] OTHER PS1 Macrocytic anemia with no significant RBC morphology. Normal The [facility] Comment on above: Order Comment: No: D o not add to previous draw Performed By: #### 5 7307, 54268 #### [facility] [address] OTHER PS2 Check serum B12 and folate. Normal The [facility] Comment on above: Order Comment: No: D o not add to previous draw Performed By: #### 5 7307, 95838 #### [facility] [address] OTHER PS3 Otherwise unremarkable leukocytes and platelets. Normal The [facility] Comment on above: Order Comment: No: D o not add to previous draw Performed By: #### 5 7307, 23420 #### [facility] [address] OTHER PS4 Normal The [facility] Comment on above: Order Comment: No: D o not add to previous draw Result Comment: Chec ked by Mayra Encinas M.D. Performed By: #### 5 7307, 02540 #### [facility] [address] PHOSPHORUS BLOODon 1 Phosphate [Mass/Vol] 3.4 mg/dL Normal 2.5-5.0 The [facility] Comment on above: Order Comment: No: D o not add to previous draw Performed By: #### 5 7307, 81376 #### [facility] [address] PROTHROMBIN TIMEon 1 INR Coag (PPP) [Relative time] 1.01 {INR} Normal 0.91-1.16 The [facility] Comment on above: Order Comment: No: [...] CHEST 1995;[id number]. Performed By: #### 5 7307, 57080 #### [facility] [address] PT Coag (PPP) [Time] 13.3 s Normal 12.3-14.8 [facility] Comment on above: Order Comment: No: D o not add to previous draw Result Comment: ALL RESULTS MUST BE INTERPRETED WITH RESPECT TO BLOOD DRAWING ARTIFACT OR DILUTION ERROR OF ANTICOAGULANT AT THE TIME OF SAMPLING. Performed By: #### 5 7307, 53051 #### [facility] [address] [facility]. [address] RETICULOCYTE PANELon 11-11-2 021 ABSOLUTE RETICULOCYTE 0.0711 10*6/uL Normal 0.0250-0.1000 [facility] Comment on above: Order Comment: No: D o not add to previous draw Performed By: #### 5 7307, 21824 #### [facility] [address] IMMATURE RETICULOCYTE FRACTION 12.8 % Normal 2.0-16.0 The [facility] Comment on above: Order Comment: No: D o not add to previous draw Performed By: #### 5 7307, 00163 #### [facility] [address] [place] [address], [facility] RETIC COUNT 2.37 % High 0.50-1.80 [facility] Comment on above: Order Comment: No: D o not add to previous draw Performed By: #### 5 7307, 67119 #### [facility] [address] RETICULOCYTE HEMOGLOBIN 37.5 pg High 28.0-36.0 [facility] Comment on above: Order Comment: No: D o not add to previous draw Performed By: #### 5 [id number], 35151 #### [facility] [address] [place] [address], [facility] TIBC- INCLUDES IRONon 2020 FE SATURATION 16 % Low 20-50 The [facility] Comment on above: Order Comment: No: D o not add to previous draw Performed By: #### 8 4044, 61069, 29264, 81920, 28454, 35971 ####[facility] Iron [Mass/Vol] 54 ug/dL Normal 50-212 The [facility] Comment on above: Order Comment: No: D o not add to previous draw Performed By: #### 8 4044, 17635, 82535, 31903, 54989, 25079 ####[facility] TIBC 332 mcg/dL Normal 250-450 The [facility] Comment on above: Order Comment: No: D o not add to previous draw Performed By: #### 8 4044, 88791, 09394, 83835, 05589, 98651 ####[facility] UIBC 278 mcg/dL Normal 155-355 The [facility] Comment on above: Order Comment: No: D o not add to previous draw Performed By: #### 8 4044, 55936, 04221, 29548, 40988, 03455 ####[facility] [place] [address], [facility] TSH3 WITH REFLEX FT4on 04-22 TSH 3RD GENERATION 1.72 uIU/mL Normal 0.34-5.60 The [facility] Comment on above: Performed By: #### 8 4044, 05833, 68354, 14390, 30548, 26021 ####[facility] VITAMIN B12on 04-22-2021 Cobalamin (Vitamin B12) [Mass/Vol] 771 pg/mL Normal 180-914 [facility] Comment on above: Order Comment: No: D o not add to previous drawPt using restroom Result Comment: REFE RENCE RANGES: 180-914 pg/mL Normal 145-179 pg/mL Indeterminate <145 pg/mL Deficient Performed By: #### 8 4044, 56680, 79705, 12282, 51879, 41138 ####[facility] Vital Signs Date Time Vital Sign Value Performing Clinician Lourdesi lity 10-06-2021 14:00-0400 Body height 165.1 cm Gunnar Fernandez Other [employer] Other 10-06-2021 14:00-0400 Body mass index (BMI) [Ratio] 40.77 kg/m2 Gunnar Fernandez Other [employer] Other 10-06-2021 14:00-0400 Body weight 111.13 kg Gunnar Fernandze Other [employer] Other Encounters Encounter Date Encounter Type Care Provider Facility Start: 10-31-2023 End: 10-31-2023 ambulatory ENOCH FRANKEL [facility] Start: 04-12-2023 End: 04-12-2023 ambulatory MARKEL AMBROCIO [facility] Start: 03-20-2023 End: 03-21-2023 ambulatory Ирина Gibson MD Facility: [facility] Start: 02-01-2023 End: 02-01-[address] [facility] Start: 01-23-2023 End: 01-24-2023 ambulatory Ирина Gibson MD Facility:[facility] Start: 01-09-2023 End: 01-10-2023 ambulatory Ирина Gibson MD Facility:[facility] Start: 12-30-2022 End: 12-30-[address] [facility] Start: 12-12-2022 End: 12-13-2022 ambulatory Ирина Gibson MD Facility:[facility] Start: 10-25-2022 ambulatory LEÓN Ruiz lity:[facility]1 Start: [...] 03-30-2022 End: 03-30-2022 ambulatory Rancho Chamorro Other [employer] Other Start: 03-30-2022 Telephone encounter Rancho BAKER [facility] Start: 03-28-2022 End: 03-29-[address] . Facility:[facility] Start: 03-27-[address] . Facili ty:[facility] Start: 03-24-2022 Office outpatient vi sit 25 minutes Rancho Chamorro [facility] [place] Start: 03-24-2022 End: 04-03-2022 ambulatory UNKNOWN PROVIDER [employer] Other Start: 03-16-2022 End: 03-16-2022 ambulatory Rancho Chamorro Other [employer] Other Start: 03-16-2022 Telephone encounter Rancho BAKER G [facility] Start: 03-11-2022 End: 03-12-2022 ambulatory LEÓN DIAS Facility:[facility] Start: 02-18-2022 End: 02-19-2022 ambulatory LEÓN DIAS Facility:[facility] Start: 02-11-2022 End: 02-12-[address] . Facility:[facility] Start: 01-28-2022 End: 01-29-2022 ambulatory LEÓN DIAS Facility:[facility] Start: 01-11-2022 End: 01-12-[address]HT[address] . Facility:[facility] Start: 01-04-2022 End: 01-05-2022 ambulatory LEÓN DIAS Facility:[facility] Start: 12-23-2021 End: 12-23-2021 ambulatory Rancho Chamorro Other [employer] Other Start: 12-23-2021 Office outpatient vi sit 25 minutes Rancho Chamorro [facility] [place] Start: 12-20-2021 End: 12-21-2021 ambulatory LENÓ DIAS Facility:[facility] Start: 12-13-2021 End: 12-14-2021 Evaluation and management of inpatient DR [facility] MEHT[facility] . Facility:[facility] Start: 12-07-2021 Encounter for preprocedural cardiovascular examination LEÓN DIAS [facility] Start: 12-06-2021 End: 12-06-2021 ambulatory LEÓN Tejada [facility] Facility:[facility]1 Start: 12-05-2021 End: 12-05-[address] . Facility:[facility] Start: 12-02-2021 End: 12-03-2021 ambulatory LEÓN Tejada [facility] Facility:[facility] Start: 12-02-2021 End: 12-03-2021 Encounter for preprocedural cardiovascular examination [facility] Facility:[facility] Start: 11-30-2021 End: 12-01-2021 ambulatory [facility] Facility:[facility] Start: 11-29-2021 End: 11-29-2021 ambulatory MIRNA PARSONS . Facility:[facility] Start: 11-17-2021 End: 11-17-2021 ambulatory Rancho Chamorro Other [employer] Other Start: 11-17-2021 Office outpatient vi sit 15 minutes Emilie Perez [facility] Start: 11-17-2021 Telephone encounter Rancho Hardwick [facility] [place] Start: 11-04-2021 End: 11-09-2021 Evaluation and management of inpatient Nj Ferguson Facility:[facility] Start: 11-04-2021 End: 11-04-2021 ambulatory Rancho Chamorro Other [employer] Other Start: 11-04-2021 Telephone encounter Rancho Hardwick [facility] Start: 11-03-2021 (Procedure) Short Rancho Chamorro [facility] Start: 11-03-2021 End: 11-03-2021 ambulatory Emilie Gonzalez [employer] Other Start: 11-03-2021 Office outpatient vi sit 25 minutes Emilie Perez [facility] Start: 10-28-2021 End: 10-28-2021 ambulatory Rancho Chamorro Other [employer] Other Start: 10-28-2021 Office outpatient vi sit 25 minutes Rancho Chamorro [facility] [place] Start: 10-26-2021 End: 10-26-2021 ambulatory Gunnar Fernandez Facility:[facility] Start: 10-07-2021 End: 10-07-2021 ambulatory Gunnar Fernandez Other [employer] Other Start: 10-07-2021 Telephone encounter Gunnar BAKER G [facility] Start: 10-06-2021 End: 10-06-2021 ambulatory Gunnar Fernandez [employer] Other Start: 10-06-2021 Office outpatient vi sit 15 minutes Gunnar Fernandez [facility] Start: 09-08-2021 End: 09-08-2021 ambulatory Gunnar Fernandez Other [employer] Other Start: 09-08-2021 Office outpatient vi sit 15 minutes Gunnar Fernandez [facility] Start: 04-22-2021 End: 04-29-2021 Evaluation and management of inpatient ROBERTA DANE Facility:[facility] Procedures Date Procedure Procedure Detail Performing [...] now? 1 Result Comment: PERF ORMED BY: [facility] [address] [place] [address] PATHOLOGIST MARRIAGE AND FAMILY COUNSELOR GERA CASTELLANOS M.D. Payers Date Payer Category Payer Medicaid [id number] 2022 Medicare 2022 Unknown 2021 Self-pay 1961 Medicare [id number] 1959 Self-pay [id number] 1959 Unknown [id number] 1948 Unknown [id number] 2.16.8 40.1.448442.3.579.2.647 1948 Unknown [id number] 2.16. 840.1.608537.3.579.2.732 1948 Unknown [id number] 2.16.84 0.1.107349.3.579.2.593 1948 Unknown [id number] 2.16.84 0.1.403513.3.579.2.593 1948 Unknown [id number] 2.16.84 0.1.247878.3.579.2.593 1948 Unknown [id number] 2.16.84 0.1.317972.3.579.2.593 1948 Unknown [id number] 2.16.84 0.1.426165.3.579.2.593 1948 Unknown [id number] 2.16.84 0.1.101126.3.579.2.593 1948 Unknown [id number] 2.16.84 0.1.250701.3.579.2.593 1948 Unknown [id number] 2.16.84 0.1.092314.3.579.2.593 1948 Unknown [id number] 2.16.84 0.1.446125.3.579.2.593 1948 Unknown [id number] 2.16.84 0.1.379582.3.579.2.593 1948 Unknown [id number] 2.16.84 0.1.161471.3.579.2.593 1948 Unknown [id number] 2.16.84 0.1.674996.3.579.2.593 1948 Unknown [id number] 2.16.84 0.1.286840.3.579.2.593 1948 Unknown [id number] 2.16.84 0.1.199266.3.579.2.593 1948 Unknown [id number] 2.16.84 0.1.729290.3.579.2.593 1948 Unknown [id number] 2.16.84 0.1.835847.3.579.2.593 1948 Unknown [id number] 2.16.84 0.1.461623.3.579.2.593 1948 Unknown [id number] 2.16.84 0.1.225426.3.579.2.593 1948 Unknown [id number] 2.16.84 0.1.230213.3.579.2.593 1948 Unknown [id number] 2.16.84 0.1.765758.3.579.2.593 1948 Unknown [id number] 2.16.84 0.1.684879.3.579.2.593 1948 Unknown [id number] 2.16.84 0.1.598663.3.579.2.593 1948 Unknown [id number] 2.16.84 0.1.785535.3.579.2.593 1948 Unknown [id number] 2.16.84 0.1.967969.3.579.2.593 1948 Unknown [id number] 2.16.84 0.1.109949.3.579.2.593 1948 Unknown [id number] 2.16.84 0.1.026140.3.579.2.593 1948 Unknown [id number] 2.16.84 0.1.693443.3.579.2.593 1948 Unknown [id number] 2.16.84 0.1.877033.3.579.2.593 1948 Unknown [id number] 2.16. 840.1.442000.3.579.2.196 1948 Unknown [id number] 2.16. 840.1.714680.3.579.2.196 1948 Unknown [id number] 2.16. 840.1.015980.3.579.2.196 1948 Unknown [id number] 2.16. 840.1.321587.3.579.2.196 Unknown [id number] 2.16.8 40.1.770596.3.579.2.531 Unknown [id number] 2.16.8 40.1.777805.3.579.2.531 Unknown [id number] 2.16.8 40.1.992190.3.579.2.531 Unknown [id number] 2.16.8 40.1.758505.3.579.2.531 Unknown [id number] 2.16.84 0.1.318123.3.579.2.593 Social History Date Type Detail Facility Sex Assigned At [employer] Other Clinical Notes 04-29-2021 to 10-31-2023 Note Date & Type Note Facility 10-31-2023 Note [place] Electrophysiology Consult Note [place] Cardiology [facility] Reason for visit: 10/30/20 Patient here [...] with prior history of transferred from an [facility] to [facility] following a fall that she sustained. She was noted to be bradycardic and EKG at that time showed her to have bradycardia in the rate of 30s following admission to [facility] she was noted to have a [...] anemia 04/23/2022 Sarcoidosis 11/18/2013 Sinus node dysfunction ([facility]/HCC) 04/23/2022 PSH: Past Surgical History: Procedure Laterality Date CARDIAC CATHETERIZATION CARDIAC PACEMAKER PLACEMENT COLONOSCOPY CT AORTA AND BILATERAL ILIOFEMORAL RUNOFF ANGIOGRAM W AND/OR WO IV CONTRAST 04/23/2022 CT AORTA AND BILATERAL ILIOFEMORAL RUNOFF ANGIOGRAM W AND/OR WO IV CONTRAST 04/23/[address] [facility] [address] CHEST ANGIOGRAM W AND/OR WO IV CONTRAST 04/23/2022 CT CHEST ANGIOGRAM W AND/OR WO IV CONTRAST 04/23/[address] [facility] [address] IMAGING TONSILLECTOMY SH: Social Determinants [...] on file Intimate Partner Violence: Unknown (08/03/2023) [place] Safety & Environment Fear of Current or Ex-Partner: Not on file Emotionally Abused: Not on file Physically Abused: Not on file Sexually Abused: Not on file Physically or Sexually Abused: Not on file Depression: Not on file Housing Stability: Not on file Utilities: Not on file Allergies: Allergies Allergen Reactions House Dust Unknown Pollen Extr (more content not included)... [facility] 04-12-2023 Note Patient here for 3 [...] All other systems reviewed and are negative. [facility] 04-12-2023 Note Cardiovascular Medic in[facility] SUBJECTIVE Chief Complaint Patient presents with [...] fall that lead to her admission to [facility]. She was noted to be bradycardic and EKG at that time showed her to have bradycardia in the rate of 30s following admission to [facility] she was noted to have a [...] noted. In 04/2022, she was admitted to [facility] for falls, new onset a.fib, NSTEMI [...] Primary hypertension Sarcoidosis Coronary artery disease involving [place] coronary artery of [place]on heart without angina pectoris Sinus node dysfunction (CMS/HCC) Iron deficiency anemia Anxiety and depression Bipolar affective disorder, currently depressed, mild (CMS/HCC) Gastroesophageal reflux disease without esophagitis Acute blood loss anemia Elevated troponin Elevated d-dimer Hypomagnesemia Atrial fibrillation ([facility]) Hematoma of right lower extremity Prolonged QT interval Recurrent falls Cellulitis of right lower extremity Closed fracture of pelvis with nonunion NSTEMI (non-ST elevated myocardial infarction) ([facility]) HFrEF (heart failure with reduced ejection fraction) ([facility]) Bradycardia Chest pain Sleep apnea Chronic anemia Past Medical History: Diagnosis Date Abnormal ECG Anxiety and depression 04/23/2022 Arrhythmia Atrial fibrillation ([facility]) Bipolar affective disorder ([facility]) 04/23/2022 CAD (coronary artery disease) 04/23/2022 Chronic kidney disease 10/26/2021 GERD (gastroesophageal reflux disease) 04/23/2022 Hyperlipidemia 10/26/2021 Hypertension 11/18/2013 Iron deficiency anemia 04/23/2022 Sarcoidosis 11/18/2013 Sinus node dysfunction ([facility]) 04/23/2022 Family History Problem Relation [...] or split. D (more content not included)... [facility] 02-01-2023 Note Patient here for 1 m o follow up labs. Spironolactone was stopped at last visit. She denies SOB, LE edema, chest pain, and bleeding on Eliquis. Review of Systems Musculoskeletal: Positive for arthritis, back pain, joint pain and muscle weakness. Neurological: Positive for weakness. All other systems reviewed and are negative. [facility] 02-01-2023 Note Cardiovascular Medic ine Progress Note SUBJECTIVE Follow up Linda Nascimento is a 72 y.o. year-old female with a past medical history including HTN, HLD, NSTEMI, HFrEF, and afib not on anticoagulation due to bleed, who presents today for follow up. She was previously transferred from an outside hospital to [facility] following a fall that she sustained [...] Primary hypertension Sarcoidosis Coronary artery disease involving [place] coronary artery of [place] heart without angina pectoris Sinus node dysfunction [...] morning.), Disp: 30 tablet, Rfl: 11 HYDROcodone-acetaminophen ([place]) 7.5-325 mg tablet, , Disp: , Rfl: [...] mEq ER tablet, (more content not included)... [facility] 12-30-2022 Note Cardiovascular Medic ine Progress Note SUBJECTIVE Follow up Linda Nascimento is a 72 y.o. year-old female with a past medical history including HTN, HLD, NSTEMI, HFrEF, and afib not on anticoagulation due to bleed, who presents today for follow up. She was previously transferred from an outside hospital to [facility] following a fall that she sustained [...] Primary hypertension Sarcoidosis Coronary artery disease involving [place] coronary artery of [place] heart without angina pectoris Sinus node dysfunction [...] Anxiety and depression 04/23/2022 Arrhythmia Atrial fibrillation ([facility]/HCC) Bipolar affective disorder ([facility]/HCC) 04/23/2022 CAD (coronary artery disease) 04/23/2022 Chronic kidney disease 10/26/2021 GERD (gastroesophageal reflux disease) 04/23/2022 Hyperlipidemia 10/26/2021 Hypertension 11/18/2013 Iron deficiency anemia 04/23/2022 Sarcoidosis 11/18/2013 Sinus node dysfunction ([facility]/HCC) 04/23/2022 Family History Problem Relation Name Age [...] 0.5 tablets (12.5 (more content not included)... [facility] 12-30-2022 Note Patient here for 3 [...] is no longer on patient's med list. [facility] 03-30-2022 Evaluation note Encounter Date Diagnosis Assessment Notes Mar, Other spondylosis with radiculopathy, lumbar region (ICD-10 - M47.26) [employer] Other 10-13-2022 Evaluation note* Encounter Date Diagnosis [...] note writ ten by Summer Molina LPN, Bottle Washing Machine Operator. Edited and approved by Dr. Rancho Chamorro MD. [employer] Other 10-05-2022 Evaluation note* Encounter Date Diagnosis Assessment Notes Treatment Notes Treatment Clinical Notes Mar, Other low back pain (ICD-10 - M54.59) [employer] Other 07-14-2022 Evaluation note* Encounter Date Diagnosis [...] note writ ten by Mika Villalobos MA, Bottle Washing Machine Operator. Edited and approved by Dr. Rancho Chamorro MD. [employer] Other 06-08-2022 Evaluation note* Encounter Date Diagnosis [...] note writ ten by Mika Villalobos MA, Bottle Washing Machine Operator. Edited and approved by Dr. Rancho Chamorro MD. [employer] Other 06-08-2022 Evaluation note* Encounter Date Diagnosis [...] four weeks, case discussed with Dr. Diaz [facility] has been contacted and will consult wound care. [employer] Other 05-25-2022 Evaluation note* Encounter Date Diagnosis [...] for Keflex BID x 14 days and [place]. Patient and sister instructed to contact office with any signs of infection or significant changes [employer] Other 05-19-2022 Evaluation note* Encounter Date Diagnosis [...] note writ ten by Summer Molina LPN, Bottle Washing Machine Operator. Edited and approved by Dr. Rancho Chamorro MD. [employer] Other 04-28-2022 Evaluation note* Encounter Date Diagnosis Assessment Notes Treatment Notes Treatment Clinical Notes Sep, Pacemaker (ICD-10 - Z95.0) [employer] Other 04-27-2022 Evaluation note* Encounter Date Diagnosis [...] spinal osteoarthritis complication status (ICD-10 - M47.816) [employer] Other 03-30-2022 Evaluation note* Encounter Date Diagnosis [...] D. To call with questions or concerns. [employer] Other 11-18-2021 NoteMR#: [id number] I [facility] Pt. Name: Linda Nascimento Admitted: 04/21/2021 [...] The patient was subsequently transferred to the [facility] for higher level of care. Cardiology [...] Lozada MD Date Trans: 04/29/2021 12:17 P/mmo [id number] cc: Leslie Arroyo M.D. [address] [place] [address] M.D[address] [id number] noteNo InformationNortKindred Hospital [facility] Pencil [employer] In Other History general Narrative - Reported* Type Description Date Medical History bipolar Medical History Arthritis Medical History high blood pressure Medical History chronic depression Medical History iron deficiency anemia Medical History kidney disease Medical History hyperlipidemia Medical History anxiety Medical History vitamin D deficiency Surgical History tonsillectomy Surgical History laparoscopy Hospitalization History depression [place] [employer] Other Summary Purpose Family History No Family [...] and content) DATE CREATED AUTHOR 05/30/2021 [facility] DATE CREATED AUTHOR AUTHOR'S ORGANIZ ATION 04/05/2022 [facility] DATE CREATED AUTHOR AUTHOR'S ORGANIZ ATION 07/16/2022 [facility] DATE CREATED AUTHOR AUTHOR'S ORGANIZ ATION 10/19/2022 [facility] DATE CREATED AUTHOR AUTHOR'S ORGANIZ ATION 03/27/2023 [facility] DATE CREATED AUTHOR AUTHOR'S ORGANIZ ATION 11/02/2023 [facility] REASON FOR VISIT (unrecogniz ed section and [...] BE BASED ON THE PRIMARY CLINICAL RECORDS. [employer] provides no warranty or guarantee of the accuracy or completeness of information in this document.
== END 2024-05-01 13:41 | disposition home or self-care (01) ==
PROVIDERS: PCP Family Medicine; Visit Provider Physician Assistant
DX: I87.312 Chronic venous hypertension (idiopathic) with ulcer of left lower extremity (principal); L97.822 Non-pressure chronic ulcer of other part of left lower leg with fat layer exposed; I87.311 Chronic venous hypertension (idiopathic) with ulcer of right lower extremity; L97.818 Non-pressure chronic ulcer of other part of right lower leg with other specified severity; L97.812 Non-pressure chronic ulcer of other part of right lower leg with fat layer exposed
CPT/HCPCS: G0463

== ENCOUNTER 2024-05-08 08:54 | Outpatient (OUT) | payer MEDICARE, MEDICAID, SELFPAY ==
--- OUTSIDE RECORDS SUMMARY | 2024-05-08 09:09 | XMS_ITS | CCD ---
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 Role Phone ROBERTA VELA Admitting Unavailable RADHA ARROYOIR Referring Unavailable BILLY LOZADA Attending Unavailable AVE MEHTA Primary Care Unavailable Gunnar Fernandez Unavailable [place] Unavailable Emilie Perez Unavailable PROVIDER, UNKNOWN Admitting Unavailable PROVIDER, UNKNOWN Attending Unavailable Gunnar Fernandez Attending Unavailable Gunnar Fernandez Admitting Unavailable Ave Mehta Primary Care Unavailable Gunnar Fernadnez Attending Unavailable Gunnar Fernandez Admitting Unavailable Ave [...] Carter, DR DORADO Primary Care Unavailable JANINE Carter, DR DORADO Primary Care Unavailable SHERIE OLMOS [...] DORADO Admitting Unavailable HOY ., DR DORADO Attending Unavailable HOY ., DR DORADO Consulting Unavailable HOY ., DR DORADO Admitting Unavailable HOY ., DR DORADO Consulting Unavailable HOY ., DR DORADO Attending Unavailable HOY ., DR DORADO Primary Care Unavailable LEONIDES, LEONIE Attending Unavailable LEONIDES, LEONIE Admitting Unavailable REBECCA, DR MARINO Braswell Consulting Unavailable HOY ., DR DORADO Primary Care Unavailable PAY ., DR DING Consulting Unavailable LEONIE COYLE Consulting Unavailable LEÓN LLAMAS Consulting Unavailable PAY ., DR DING Attending Unavailable PAY ., DR DING Consulting Unavailable HOY ., DR DORADO Primary Care Unavailable PAY ., DR DING Admitting Unavailable DUNN ., MR BANG Consulting Unavailable MADINA ACEVEDO Consulting Unavailable NGUYEN [...] Unavailable HOY ., DR DORADO Attending Unavailable LEÓN DIAS Consulting Unavailable LARISSA, LEÓN Tejada Admitting Unavailable HOY ., DR DORADO Primary Care Unavailable LEÓN DIAS Attending Unavailable AGUBOSIM, ISABEL Consulting Unavailable PAULETTE, NEYDA Consulting Unavailable AYYAGARI ., SAMINA Consulting [...] DR BORIS Hardwick Procedure Practitioner Yun vailable HORosmery ., DR DORADO Primary Care Unavailable BOLANOS ., DR IVAN Bowden Consulting Unavailable MARGO, DR BORIS Hardwick Consulting UnavailKIAN Ricci Consulting Unavailable RISHABH ART Consulting Unavailable LEÓN PETERS Unavailable HOY ., DR DORADO Primary Care Unavailable HOY ., DR DORADO Admitting Unavailable ROSETTA, DR REYMUNDO Braswell Consulting Unavailable HOY ., DR DORADO Attending Unavailable HOY ., DR DORADO Consulting Unavailable SHAIKH Roberto NICOLAS Consulting Unavailable LEÓN DIAS Consulting Unavailable LEÓN DIAS Attending Unavailable LEÓN DIAS Admitting Unavailable HOY ., DR DORADO Primary Care Unavailable HOY ., DR DORADO Primary Care Unavailable ALGHODISHA, MOHAMAMallory Attending Unavailable ALGHOTHANI, MOHAMAD Admitting Unavailable MARKEL AMBROCIO Consulting Unavailable LARISSA, PETER D Admitting Unavailable LEÓN DIAS Attending Unavailable HOY ., DR DORADO Primary Care Unavailable [place], DR RISHABH Martin Consulting Unavailable LEÓN DIAS Consulting Unavailable Arthur OLIVER, Ирина Loya Attending Unavailable Arthur OLIVER, Ирина Loya Attending Unavailable Gidrew OLIVER, Ирина Loya Attending Unavailable Giedraitis MD, Ирина Loya Attending Unavailable ENOCH FRANKEL Attending Unavailable KRISTIAN MERAZ Attending Unavailable MARKEL AMBROCIO Attending Unavailable KRISTIAN MERAZ Attending Unavailable ENOCH FRANKEL Referring Unavailable Allergies Allergy Classification Reported Allergen(s) Allergy Type Date of Onset Reaction(s) Facility (1 source) house dust allergenic extract; Translations: [HOUSE DUST] Drug Allergy 4 [facility] Repository (1 source) Pollen; Translations: [POLLEN EXTRACTS] Propensity to adverse reactions to drug (disorder) 4 [facility] Repository Medications Current Medications Medication Drug Class(es) [...] Start: 10-28-2021 take 1 capsule by mo [facility] every twelve hours Gabapentin 300 MG 1 capsule Orally BID for 30 day(s) October, Active hydrALAZINE hydrochloride 50 mg oral tablet (13 sources) Arteriolar Vasodilator take 1 tablet by mouth every eight hours hydrALAZINE HCl 50 MG 1 tablet with food Orally Three times a day Active take 1 tablet [facility] every eight hours hydrALAZINE HCl 25 MG [...] oral tablet (19 sources) Opioid Agonist Start: take 1 tablet by mouth every four hours traMADol HCl 50 MG 1 tablet as needed Orally every 4 hours Aug, Active Start: 08-26-2020 take 1 tablet by [...] region] Episodic Other aftercare (1 source) Other detention (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; Translations: [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] Onset: 10-18-2022 Episodic Other [...] Resolved: 2 Episodic Other aftercare (1 source) 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 [phone], FAX [phone] CALL doctor LB474 tel. [phone], FAX [phone] Result Comment: The specimen submitted for testing did not meet ARUP submission guidelines. Testing was performed on a specimen that did not meet validated specimen type requirements. Performance characteristics of this assay may be affected. Interpret results with caution. Please refer to the [employer] Test Directory for information on specimen acceptability: https://www.[employer]/testing Performed By: #### A 0095 #### [facility] [address] [place] [address] HSV 2 Subtype by PCR Not detected [facility] Comment on above: Order Comment: CALL doctor LB474 tel. [phone], FAX [phone] CALL doctor LB474 tel. [phone], FAX [phone] Result Comment: The specimen submitted for testing did not meet ARUP submission guidelines. Testing was performed on a specimen that did not meet validated specimen type requirements. Performance characteristics of this assay may be affected. Interpret results with caution. Please refer to the [employer] Test Directory for information on specimen acceptability: https://www.[employer]/testing INTERPRETIVE INFORMATION: HSV-1 and HSV-2 Subtype by PCR A negative result does not rule out the presence of PCR inhibitors in the patient specimen or test-specific nucleic acid in concentrations below the level of detection by this test. This test was developed and its performance characteristics determined by [facility]. It has not been cleared or approved by the [place] Food and Drug Administration. This test was performed in a CLIA certified laboratory and is intended for clinical purposes. Performed By: [facility] [address] [place] [address] Senior Energy Consultant: Rodrigo Milner MD, PhD CLIA Number: [id number] Performed By: #### A 0095 #### [facility] [address] [place] [address] Rejection Notificationon Reason see below Normal [facility] Comment on above: Order Comment: CALL doctor LB474 tel. [phone], FAX [phone] CALL doctor LB474 tel. [phone], FAX [phone] Result Comment: Unab le to perform testing; specimen quantity not sufficient. To perform testing the specimen will need to be recollected. QNS Performed By: #### R EJEC #### [facility] [address] [place] [address] Rejected Test [id number] [facility] Comment on above: Order Comment: CALL doctor LB474 tel. [phone], FAX [phone] CALL doctor LB474 tel. [phone], FAX [phone] Performed By: #### R EJEC #### [facility] [address] [place] [address] [facility] Miscellaneous test 1on 05-03-2024 Who[facility] Prompt [id number] [facility] Comment on above: Order Comment: CALL doctor LB474 tel. [phone], FAX [phone] Performed By: #### 9 [id number] #### [facility] [address] [place] [address] Culture, Wound Aerobic, Anae robicon 05-03-2024 Culture, Wound Aerobic, Anaerobic ORDER#: [id number] ORDERED BY: MICHELLE QUINTERO SOURCE: Face Left eye ocular fluid COLLECTED: 05/03/24 07:26 ANTIBIOTICS AT [place].: RECEIVED : 05/03/24 07:39 [facility] tel. [phone], FAX [phone] Culture, Wound Aerobic, Anaerobic PRELIM 05/07/24 08:50 Direct Exam: NO NEUTROPHILS SEEN Direct Exam: NO ORGANISMS SEEN Cult,Aerobe/Anaerobe: NO GROWTH 4 DAYS Performed at [facility] [address] [place] [address] ([phone] [facility] Comment on above: Performed By: #### I CWAN #### [facility] [address] [place] [id number] Herpes Simplex Virus By PCRo n 05-03-2024 Herpes Simplex Virus Subtype Source eye [facility] Comment on above: Order Comment: CALL doctor LB474 tel. [phone], FAX [phone] CALL doctor LB474 tel. [phone], FAX [phone] Result Comment: ocul ar fld Performed By: #### A 0095 #### [facility] [address] [place] [address] Office Visiton 10-31-2023 Follow-up visit [id number] Linda Nascimento 1950 F Date Provider Department Center 10/31/2023 ENOCH RAMIREZ JUAN [facility] Family History Problem Relation Age of Onset Lung cancer Mother Stroke Father Family Status - Relation Status Age at Mother Father Level of Service:04834 AR OFFICE/OUTPATIENT ESTABLISHED MOD MDM 30 MIN [facility] 36on 10-17-2023 36 Let's keep her medications the same. Thanks [facility] 36 Please ask what her current weight is. [facility] 36on 08-01-2023 36 Please confirm what [...] day or 3 times a week. Thanks [facility] on 07-27-2023 36 Regarding note from [facility] with patient's weights and BP's and mention [...] Thanks! Printed and faxed back to [facility]. [facility] Office Visiton 04-12-2023 Follow-up visit [id number] Linda Nascimento 1950 F Date Provider Department Center 04/12/2023 MARKEL [facility] Family History Problem Relation Age of Onset Lung cancer Mother Stroke Father Family Status - Relation Status Age at Mother Father Level of Service:31474 AR OFFICE/OUTPATIENT ESTABLISHED LOW MDM 20-29 MIN Reason for Visit and Comments: Congestive Heart Failure [127] Atrial Fibrillation [80] Hyperlipidemia [182] Coronary Artery Disease [187] Normal [facility] Office Visiton 02-01-2023 Follow-up visit [id number] Tayler Nascimentodewayne Gonzalez 1950 F Date Provider Department Center 02/01/2023 KRISTIAN ADLER [facility] Family History Problem Relation Age of Onset Lung cancer Mother Stroke Father Family Status - Relation Status Age at Mother Father Level of Service:25687 AR OFFICE/OUTPATIENT ESTABLISHED LOW MDM 20-29 MIN Normal [facility] Office Visiton 12-30-2022 Follow-up visit [id number] Azam L 1950 F Date Provider Department Center 12/30/2022 KRISTIAN ADLER [facility] Family History Problem Relation Age of Onset Lung cancer Mother Stroke Father Family Status - Relation Status Age at Mother Father Level of Service:71110 AR OFFICE/OUTPATIENT ESTABLISHED MOD MDM 30-39 MIN Normal [facility] CBC AUTO DIFFon 10-14-2022 BASO # 0.1 103/ul Normal 0.0-0.1 [facility] Comment on above: Performed By: #### C BC ####[facility] [address] [place] [address]Dr. Slick Broderick Basophils/100 WBC (Bld) 0.6 % Normal 0.2-2.0 [facility] Comment on above: Performed By: #### C BC ####[facility] [address] [place] [address]DrEmma Broderick EO # 0.4 103/ul Normal 0.0-0.7 [facility] Comment on above: Performed By: #### C BC ####[facility] [address] [place] [address]DrEmma Broderick Eosinophils/100 WBC (Bld) 3.9 % Normal 0.9-7.0 [facility] Comment on above: Performed By: #### C BC ####[facility] [address] [place] [address]Dr. Slick Broderick Erythrocyte distribution width (RBC) [Ratio] 13.2 % Normal 11.0-15.0 [facility] Comment on above: Performed By: #### C BC ####[facility] [address] [place], [place] [address]Dr. Slick Broderick Hematocrit (Bld) [Volume fraction] 32.4 % Critically low 36.0-48.0 [facility] Comment on above: Performed By: #### C BC ####[facility] Ba[address] [place], [place] [address]Dr. Slick Broderick Hemoglobin (Bld) [Mass/Vol] 10.4 g/dL Critically low 12.0-16.0 [facility] Comment on above: Performed By: #### C BC ####[facility] [address] [place], [place] [address]Dr. Slick Broderick IG # 0.19 10e3/ul Critically high 0.00-0.03 [facility] Comment on above: Performed By: #### C BC ####[facility] [address] [place], [place] [address]Dr. Slick Broderick IG % 2.1 % Critically high 0.0-0.5 [facility] Comment on above: Performed By: #### C BC ####[facility] [address] [place], [place] [address]Dr. Slick Broderick LYMPH # 1.0 103/ul Critically low 1.2-3.8 [facility] Comment on above: Performed By: #### C BC ####[facility] Z[address] [place], [place] [address]Dr. Slick Broderick Lymphocytes/100 WBC (Bld) 11.4 % Critically low 20.5-60.0 [facility] Comment on above: Performed By: #### C BC ####[facility] [address] [place] [address]Dr. Slick Davie MANUAL DIFF REQ NO Normal [facility] Comment on above: Performed By: #### C BC ####[facility] Negjwdpmfp[address] [place] [address]Dr. Slick Broderick MCH (RBC) [Entitic mass] 32.0 pg Normal 26.7-34.0 [facility] Comment on above: Performed By: #### C BC ####[facility] [address] [place], [place] [address]Dr. Slick Davie MCHC (RBC) [Mass/Vol] 32.1 g/dL Normal 29.9-35.2 [facility] Comment on above: Performed By: #### C BC ####[facility] [address] [place], [place] [address]Dr. Slick Davie MCV (RBC) [Entitic vol] 99.7 fL Critically high 81.0-99.0 [facility] Comment on above: Performed By: #### C BC ####[facility] [address] [place], [place] [address]Dr. Slick Davie MONO # 1.0 103/ul Critically high 0.3-0.8 [facility] Comment on above: Performed By: #### C BC ####[facility] [address] [place], [place] [address]Dr. Meaganwendie Broderick Monocytes/100 WBC (Bld) 10.8 % Normal 1.7-12.0 [facility] Comment on above: Performed By: #### C BC ####[facility] [address] [place], [place] [address]Dr. Meaganwendie Davie NEUT # 6.4 103/ul Normal 1.4-6.5 [facility] Comment on above: Performed By: #### C BC ####[facility] S[address] [place], [place] [address]Dr. Slick Brodeirck Neutrophils/100 WBC (Bld) 71.2 % Normal 43.0-75.0 [facility] Comment on above: Performed By: #### C BC ####[facility] [address] [place] [address]Dr. Slick Broderick Platelet mean volume (Bld) [Entitic vol] 9.8 fL Normal 9.5-13.5 [facility] Comment on above: Performed By: #### C BC ####[facility] [address] [place] [address]Dr. Slick Broderick PLT 174 103/ul Normal 150-450 [facility] Comment on above: Performed By: #### C BC ####[facility] [address] [place] [address]Dr. Slick Broderick RBC 3.25 106/ul Critically low 4.20-5.40 [facility] Comment on above: Performed By: #### C BC ####[facility] [address] [place] [address]Dr. Slick Broderick WBC 8.9 103/ul Normal 4.0-11.0 [facility] Comment on above: Performed By: #### C BC ####[facility] [address] [place], [place] [address]Dr. Slick Broderick CRPon 10-14-2022 CRP 0.5 mg/dL Normal <=1.0 [facility] Comment on above: Performed By: #### C RP, BMP ####[facility] [address] [place], [place] [address]Dr. Slick Broderick D-DIMERon 10-14-2022 D-DIMER 0.86 mg/L FEU Critically high <=0.59 [facility] Comment on above: Performed By: #### D DIM ####[facility] [address] [place], [place] [address]Dr. Slick Broderick D-DIMER COMMENTS SEE BELOW Normal [facility] Comment on above: Result Comment: Incr eases [...] generalized hospitalization. Performed By: #### D DIM ####[facility] [address] [place], [place] [address]Dr. Slick Broderick PROF CHEM 8 (BAS METB)on Anion gap [Moles/Vol] 10.1 mmol/L Normal [facility] Comment on above: Performed By: #### C RP, BMP ####[facility] [address] [place], [place] [address]Dr. Slick Broderick Calcium [Mass/Vol] 9.3 mg/dL Normal 8.5-10.1 [facility] Comment on above: Performed By: #### C RP, BMP ####[facility] [address] [place], [place] [address]Dr. Slick Broderick Chloride [Moles/Vol] 98 mmol/L Normal 98-107 [facility] Comment on above: Performed By: #### C RP, BMP ####[facility] [address] [place], [place] [address]Dr. Slick Broderick CO2 [Moles/Vol] 30.3 mmol/L Normal 21.0-32.0 [facility] Comment on above: Performed By: #### C RP, BMP ####[facility] [address] [place], [place] [address]Dr. Slick Broderick Creatinine [Mass/Vol] 2.15 mg/dL Critically high 0.55-1.02 [facility] Comment on above: Performed By: #### C RP, BMP ####[facility] [address] [place], [place] [address]Dr. Slick Broderick EGFR-AF JAMAICAN 27 mL/min/1.73m2 Critically low >=60 [facility] Comment on above: Performed By: #### C RP, BMP ####[facility] [address] [place], [place] [address]Dr. Slick Broderick EGFR-NON AF JAMAICAN 22 mL/min/1.73m2 Critically low >=60 [facility] Comment on above: Performed By: #### C RP, BMP ####[facility] [address] [place] [id number]. Meaganwendie Davie Glucose [Mass/Vol] 116 mg/dL Critically high 74-106 T [facility] Comment on above: Performed By: #### C RP, BMP ####[facility] [address] [place] [address]Dr. Slick Broderick Potassium [Moles/Vol] 4.4 mmol/L Normal 3.5-5.1 [facility] Comment on above: Performed By: #### C RP, BMP ####[facility] [address] [place] [id number]. Slick Broderick Sodium [Moles/Vol] 134 mmol/L Critically low 136-145 Th [facility] Comment on above: Performed By: #### C RP, BMP ####[facility] [address] [place] [address]Dr. Slick Broderick Urea nitrogen [Mass/Vol] 33.0 mg/dL Critically high 7.0-18.0 [facility] Comment on above: Performed By: #### C RP, BMP ####[facility] [address] [place] [address]Dr. Slick Broderick Urea nitrogen/Creatinine [Mass ratio] 15.3 mg/mg Normal [facility] Comment on above: Performed By: #### C RP, BMP ####[facility] [address] [place] [address]Dr. Slick Broderick US JENNY DOP LEG LTon 10-15-19 23 US JENNY DOP LEG LT Normal [facility] XR FEMUR LTon 10-14-2022 XR FEMUR LT Normal [facility] ECHOCARDIO M/2D COMPLETEon 0 09-14-2022 ECHOCARDIO M/2D COMPLETE Normal [facility] PRBC LEUKOREDUCEDon 06-09-20 22 PRBC LEUKOREDUCED Normal [facility] Comment on above: Performed By: #### P RBC ####[facility] [address] [place], [place] [address]Dr. Slick Broderick BNPon 04-23-2022 Natriuretic peptide B (Bld) [Mass/Vol] 54290.0 pg/mL Critically high <=900.0 [facility] Comment on above: Performed By: #### C MP, CMADM, BNP ####[facility] [address] [place] [address]Dr. Slick Broderick CARDIAC REYMUNDO ADMITon 022 CK [Catalytic activity/Vol] 121 U/L Normal 26-192 [facility] Comment on above: Performed By: #### C MP, CMADM, BNP ####[facility] [address] [place] [address]Dr. Slick Davie CK.MB [Mass/Vol] 5.67 ng/mL Critically high <=3.60 [facility] Comment on above: Performed By: #### C MP, CMADM, BNP ####[facility] [address] [place] [address]Dr. Slick Broderick HSTROP 3667.9 pg/mL Critically high 4.0-51.3 [facility] Comment on above: Result Comment: CUT- OFF POINTS HAVE BEEN ESTABLISHED BASED ON THE FOURTH UNIVERSAL DEFINITIONS OF MYOCARDIALINFARCTION. THE UPPER REFERENCE LIMIT (URL) OF TROPONIN, DEFINED THE 99TH PERCENTILE OFcTnI DISTRIBUTION IN A REFERENCE POPULATION, HAS BEEN CONFIRMED THE DECISION THRESHOLDFOR [place] DIAGNOSIS. Performed By: #### C MP, CMADM, BNP ####[facility] [address] [place] [address]Dr. Slick Davie NEHEMIAH 225 ng/mL Critically high 9-82 [facility] Comment on above: Performed By: #### C MP, CMADM, BNP ####[facility] [address] [place] [address]Dr. Slick Broderick CBC AUTO DIFFon 04-23-2022 BASO # 0.0 103/ul Normal 0.0-0.1 [facility] Comment on above: Performed By: #### C BC ####[facility] [address] [place] [address]Dr. Slick Broderick Basophils/100 WBC (Bld) 0.3 % Normal 0.2-2.0 [facility] Comment on above: Performed By: #### C BC ####[facility] [address] [place] [address]Dr. Slick Broderick EO # 0.0 103/ul Normal 0.0-0.7 [facility] Comment on above: Performed By: #### C BC ####[facility] [address] [place] [address]Dr. Slick Broderick Eosinophils/100 WBC (Bld) 0.3 % Critically low 0.9-7.0 [facility] Comment on above: Performed By: #### C BC ####[facility] [address] [place] [address]Dr. Slick Broderick Erythrocyte distribution width (RBC) [Ratio] 14.0 % Normal 11.0-15.0 [facility] Comment on above: Performed By: #### C BC ####[facility] [address] [place], [place] [address]Dr. Slick Broderick Hematocrit (Bld) [Volume fraction] 21.9 % Critically low 36.0-48.0 [facility] Comment on above: Performed By: #### C BC ####[facility] [address] [place], [place] [address]Dr. Slick Broderick Hemoglobin (Bld) [Mass/Vol] 7.1 g/dL Critically low 12.0-16.0 [facility] Comment on above: Performed By: #### C BC ####[facility] [address] [place] [address]Dr. Slick Broderick IG # 0.04 10e3/ul Critically high 0.00-0.03 [facility] Comment on above: Performed By: #### C BC ####[facility] [address] [place] [address]Dr. Slick Broderick IG % 0.4 % Normal 0.0-0.5 [facility] Comment on above: Performed By: #### C BC ####[facility] [address] [place], [place] [address]Dr. Slick Broderick LYMPH # 0.8 103/ul Critically low 1.2-3.8 [facility] Comment on above: Performed By: #### C BC ####[facility] [address] [place] [address]Dr. Slick Davie Lymphocytes/100 WBC (Bld) 7.7 % Critically low 20.5-60.0 [facility] Comment on above: Performed By: #### C BC ####[facility] [address] [place] [id number]. Meaganwendie Broderick MANUAL DIFF REQ NO Normal [facility] Comment on above: Performed By: #### C BC ####[facility] Ygqrhnustl8083 [place] [id number]. Slick Davie MCH (RBC) [Entitic mass] 29.3 pg Normal 26.7-34.0 [facility] Comment on above: Performed By: #### C BC ####[facility] Kclrybiaei4798 [place] [address]Dr. Slick Davie MCHC (RBC) [Mass/Vol] 32.4 g/dL Normal 29.9-35.2 [facility] Comment on above: Performed By: #### C BC ####[facility] Gktskvmcfx3194 [place] [id number]. Slick Davie MCV (RBC) [Entitic vol] 90.5 fL Normal 81.0-99.0 [facility] Comment on above: Performed By: #### C BC ####[facility] Fqivgqqpls[address] [place], [place] [address]Dr. Slick Broderick MONO # 1.0 103/ul Critically high 0.3-0.8 [facility] Comment on above: Performed By: #### C BC ####[facility] Tfnmrqvccn4270 [place] [id number]. Meaganwendie Broderick Monocytes/100 WBC (Bld) 9.6 % Normal 1.7-12.0 [facility] Comment on above: Performed By: #### C BC ####[facility] Cawqtdjpbp[address] [place], [place] [address]Dr. Slick Broderick NEUT # 8.6 103/ul Critically high 1.4-6.5 [facility] Comment on above: Performed By: #### C BC ####[facility] Exfekzscvy0901 [place] [id number]. Slick Broderick Neutrophils/100 WBC (Bld) 81.7 % Critically high 43.0-75.0 [facility] Comment on above: Performed By: #### C BC ####[facility] Vihapzftdm1651 [place] [id number]. Slick Broderick Platelet mean volume (Bld) [Entitic vol] 10.0 fL Normal 9.5-13.5 [facility] Comment on above: Performed By: #### C BC ####[facility] Gdbjlklfvr5257 [place] [id number]. Slick Broderick PLT 195 103/ul Normal 150-450 [facility] Comment on above: Performed By: #### C BC ####[facility] Izfzohnkcl2666 [place] [id number]. Slick Broderick RBC 2.42 106/ul Critically low 4.20-5.40 [facility] Comment on above: Performed By: #### C BC ####[facility] Rdisezosbc7767 [place] [phone]. Slick Broderick WBC 10.5 103/ul Normal 4.0-11.0 [facility] Comment on above: Performed By: #### C BC ####[facility] Wrmaacyfyf1388 [place] [phone]. Slick Davie CT HEAD WO CONon 04-23-2022 CT HEAD WO CON Normal [facility] CULTURE BLOODon 04-23-2022 Microscopic examination of blood, culture Culture Observations: NO GROWTH AT 5 DAYS. Normal [facility] Comment on above: Performed By: #### B LDCX2 ####[facility] Kgfxqsovwo0928 [place] [id number]. Slick Broderick Microscopic examination of blood, culture Culture Observations: NO GROWTH AT 5 DAYS. Normal [facility] Comment on above: Performed By: #### B LDCX1 ####[facility] Baervqzvli8634 [place] [phone]. Slick Davie Covid-19 PCR (CVDTBH)on 04-12 SARS-CoV-2 (COVID-19) RNA DONNIE+probe Ql (Unsp spec) Not detected Normal NOT DETECTED [facility] Comment on above: Result Comment: When diagnostic [...] for this test is supported by the [place] of Health and Human Service's declaration that [...] be used). Performed By: #### C VDTBH ####[facility] Muaglwgzzb[address] [place], [place] [address]DrEmma Broderick LACTATE/LACTIC ACIDon 2021 Lactate [Moles/Vol] 1.2 mmol/L Normal 0.4-1.9 [facility] Comment on above: Performed By: #### L ACT ####[facility] Qxuajbzefk2[address] [place], [place] [address]DrEmma Broderick PROF 14(COMP METB)on 022 Albumin [Mass/Vol] 2.9 g/dL Critically low 3.4-5.0 [facility] Comment on above: Performed By: #### C MP, CMADM, BNP ####[facility] Ghqpkzweqp9021 [place] [address]DrEmma Broderick Albumin/Globulin [Mass ratio] 0.9 {ratio} Normal [facility] Comment on above: Performed By: #### C MP, CMADM, BNP ####[facility] Faydcjaoof9421 [place] [address]DrEmma Broderick ALP [Catalytic activity/Vol] 88 U/L Normal 46-116 [facility] Comment on above: Performed By: #### C MP, CMADM, BNP ####[facility] Wqtptpiwbw7976 [place] [address]Dr. Slick Broderick ALT [Catalytic activity/Vol] 22 U/L Normal 14-59 [facility] Comment on above: Performed By: #### C MP, CMADM, BNP ####[facility] Tjmerenydv8909 [place] [address]Dr. Slick Broderick Anion gap [Moles/Vol] 14.0 mmol/L Normal [facility] Comment on above: Performed By: #### C MP, CMADM, BNP ####[facility] Nrfsppyfxd9[address] [place], [place] [address]Dr. Slick Broderick AST [Catalytic activity/Vol] 26 U/L Normal 15-37 [facility] Comment on above: Performed By: #### C MP, CMADM, BNP ####[facility] Mcpvkzfmif58[address] [place], [place] [address]Dr. Slick Broderick Bilirubin [Mass/Vol] 0.5 mg/dL Normal 0.2-1.0 [facility] Comment on above: Performed By: #### C MP, CMADM, BNP ####[facility] Votzhtjjqm[address] [place], [place] [address]Dr. Slick Broderick Calcium [Mass/Vol] 9.7 mg/dL Normal 8.5-10.1 [facility] Comment on above: Performed By: #### C MP, CMADM, BNP ####[facility] Ubkbvaegnz3187 [place] [address]Dr. Slick Broderick Chloride [Moles/Vol] 105 mmol/L Normal 98-107 [facility] Comment on above: Performed By: #### C MP, CMADM, BNP ####[facility] Kvqsoigwht[address] [place], [place] [address]Dr. Slick Broderick CO2 [Moles/Vol] 27.0 mmol/L Normal 21.0-32.0 [facility] Comment on above: Performed By: #### C MP, CMADM, BNP ####[facility] Kjdlqolaas4025 [place] [address]Dr. Slick Broderick Creatinine [Mass/Vol] 1.57 mg/dL Critically high 0.55-1.02 [facility] Comment on above: Performed By: #### C MP, CMADM, BNP ####[facility] Nacnizilxb8428 [place] [address]Dr. Slick Davie EGFR-AF JAMAICAN 39 mL/min/1.73m2 Critically low >=60 [facility] Comment on above: Performed By: #### C MP, CMADM, BNP ####[facility] Qhqrmkgfeo6530 [place] [address]Dr. Meaganwendie Davie EGFR-NON AF JAMAICAN 32 mL/min/1.73m2 Critically low >=60 [facility] Comment on above: Performed By: #### C MP, CMADM, BNP ####[facility] Ygqhokmmit[address] [place], [place] [address]Dr. Meaganwendie Davie Globulin (S) [Mass/Vol] 3.2 g/dL Normal [facility] Comment on above: Performed By: #### C MP, CMADM, BNP ####[facility] Xtfzyryilq5804[address] [place], [place] [address]Dr. Slick Broderick Glucose [Mass/Vol] 128 mg/dL Critically high 74-106 [facility] Comment on above: Performed By: #### C MP, CMADM, BNP ####[facility] Fppyusvfcs5703 [place] [address]Dr. Meaganwendie Davie Potassium [Moles/Vol] 4.0 mmol/L Normal 3.5-5.1 [facility] Comment on above: Performed By: #### C MP, CMADM, BNP ####[facility] Wblcuzfwfd36[address] [place], [place] [address]Dr. Slick Broderick Protein [Mass/Vol] 6.1 g/dL Critically low 6.4-8.2 [facility] Comment on above: Performed By: #### C MP, CMADM, BNP ####[facility] Ksqzfecwze80[address] [place], [place] [address]Dr. Slick Broderick Sodium [Moles/Vol] 142 mmol/L Normal 136-145 [facility] Comment on above: Performed By: #### C BABAR SANDOVAL, BNP ####[facility] Kwifngtxkv1241 [place] [address]Dr. Slick Broderick Urea nitrogen [Mass/Vol] 34.0 mg/dL Critically high 7.0-18.0 [facility] Comment on above: Performed By: #### C BABAR SANDOVAL, BNP ####[facility] Lqjfchwjqr0569 [place] [address]Dr. Slick Broderick Urea nitrogen/Creatinine [Mass ratio] 21.7 mg/mg Normal [facility] Comment on above: Performed By: #### C BABAR SANDOVAL, BNP ####[facility] Czwqghwifg3234 [place] [address]Dr. Slick Broderick PROTIMEon 04-23-2022 INR Coag (PPP) [Relative time] 1.10 {INR} Normal [facility] Comment on above: Performed By: #### P T, PTT ####[facility] Hwcgrhjusp86[address] [place], [place] [address]Dr. Slick Broderick INR GUIDELINES SEE BELOW Normal [facility] Comment on above: Result Comment: EDMUND RED INR: 2.0 - 3.0 CONDITIONS NOT LISTED BELOW 2.5 - 3.5 FOR PROSTHETIC HEART VALVE REPLACEMENT 2.5 - 3.5 RECURRENT THROMBOSIS Performed By: #### P T, PTT ####[facility] Jvedkkpzer37[address] [place], [place] [address]Dr. Slick Broderick PT Coag (PPP) [Time] 11.8 s Critically high 9.0-11.6 [facility] Comment on above: Performed By: #### P T, PTT ####[facility] Szwqfuywig[address] [place], [place] [address]Dr. Slick Broderick PTTon 04-23-2022 aPTT Coag (Bld) [Time] 27.7 s Normal 22.3-36.2 [facility] Comment on above: Performed By: #### P T, PTT ####[facility] Ovjrzgwyuh[address] [place], [place] [address]Dr. Slick Broderick TYPE AND SCREENon 04-23-2022 TYPE AND SCREEN Negative Normal [facility] Comment on above: Performed By: #### T NS ####[facility] Uyzuiuqeek2699 [place] [address]Dr. Slick Broderick XR CHEST 1 Von 04-23-2022 XR CHEST 1 V Normal [facility] CBC AUTO DIFFon 04-22-2022 BASO # 0.0 103/ul Normal 0.0-0.1 [facility] Comment on above: Performed By: #### C BC ####[facility] Lxgawyygzl1585 [place] [address]Dr. Slick Broderick Basophils/100 WBC (Bld) 0.3 % Normal 0.2-2.0 [facility] Comment on above: Performed By: #### C BC ####[facility] Vwapevyaiw5075 [place] [address]Dr. Slick Broderick EO # 0.1 103/ul Normal 0.0-0.7 [facility] Comment on above: Performed By: #### C BC ####[facility] Zzlwmaazkf0199 [place] [address]Dr. Slick Broderick Eosinophils/100 WBC (Bld) 1.4 % Normal 0.9-7.0 [facility] Comment on above: Performed By: #### C BC ####[facility] Iejognvpnv7141 [place] [address]Dr. Slick Broderick Erythrocyte distribution width (RBC) [Ratio] 13.8 % Normal 11.0-15.0 [facility] Comment on above: Performed By: #### C BC ####[facility] Livmbxuema6822 [place] [phone]. Slick Broderick Hematocrit (Bld) [Volume fraction] 27.4 % Critically low 36.0-48.0 [facility] Comment on above: Performed By: #### C BC ####[facility] Qlwpcjmtfx8401 [place] [address]Dr. Slick Broderick Hemoglobin (Bld) [Mass/Vol] 8.8 g/dL Critically low 12.0-16.0 [facility] Comment on above: Performed By: #### C BC ####[facility] Itgyftgpnl4607 [place] [address]DrEmma Broderick IG # 0.04 10e3/ul Critically high 0.00-0.03 [facility] Comment on above: Performed By: #### C BC ####[facility] Mthltwhedy7530 [place] [phone] Broderick IG % 0.6 % Critically high 0.0-0.5 [facility] Comment on above: Performed By: #### C BC ####[facility] Lmhujzwxbh9189 [place] [address]DrEmma Broderick LYMPH # 0.7 103/ul Critically low 1.2-3.8 [facility] Comment on above: Performed By: #### C BC ####[facility] Ejgrkjquis7216 [place] [address]DrEmma Broderick Lymphocytes/100 WBC (Bld) 9.8 % Critically low 20.5-60.0 [facility] Comment on above: Performed By: #### C BC ####[facility] Pavbuifvvw9311 [place] [address]DrEmma Broderick MANUAL DIFF REQ NO Normal [facility] Comment on above: Performed By: #### C BC ####[facility] Obipnqwgiu8707 [place] [phone] Broderick MCH (RBC) [Entitic mass] 28.9 pg Normal 26.7-34.0 [facility] Comment on above: Performed By: #### C BC ####[facility] Ieggbbcxhj2263 [place] [phone] Broderick MCHC (RBC) [Mass/Vol] 32.1 g/dL Normal 29.9-35.2 [facility] Comment on above: Performed By: #### C BC ####[facility] Hpeztxrfiv9998 [place] [phone] Broderick MCV (RBC) [Entitic vol] 90.1 fL Normal 81.0-99.0 [facility] Comment on above: Performed By: #### C BC ####[facility] Vmzvnwvvsp1659 [place] [phone]. Slick Broderick MONO # 0.6 103/ul Normal 0.3-0.8 [facility] Comment on above: Performed By: #### C BC ####[facility] Vrtgzvdgtd9050 [place] [address]Dr. Slick Broderick Monocytes/100 WBC (Bld) 7.6 % Normal 1.7-12.0 [facility] Comment on above: Performed By: #### C BC ####[facility] Hsyzmkkzwz4485 [place] [phone]. Slick Broderick NEUT # 5.9 103/ul Normal 1.4-6.5 [facility] Comment on above: Performed By: #### C BC ####[facility] Mbsswaphai0681 [place] [address]Dr. Slick Broderick Neutrophils/100 WBC (Bld) 80.3 % Critically high 43.0-75.0 [facility] Comment on above: Performed By: #### C BC ####[facility] Kjbjjdzhws4291 [place] [phone]. Slick Broderick Platelet mean volume (Bld) [Entitic vol] 9.5 fL Normal 9.5-13.5 [facility] Comment on above: Performed By: #### C BC ####[facility] Zywwtaemyb6714 [place] [phone]. Slick Broderick PLT 204 103/ul Normal 150-450 [facility] Comment on above: Performed By: #### C BC ####[facility] Kwzctkcmux8095 [place] [address]Dr. Slick Broderick RBC 3.04 106/ul Critically low 4.20-5.40 [facility] Comment on above: Performed By: #### C BC ####[facility] Ogtgluofwe8630 [place] [phone]. Slick Broderick WBC 7.3 103/ul Normal 4.0-11.0 [facility] Comment on above: Performed By: #### C BC ####[facility] Xxlfqcgswj3131 [place] [address]Dr. Slick Broderick BASO # 0.0 103/ul Normal 0.0-0.1 [facility] Comment on above: Performed By: #### C BC ####[facility] Kuabjyjcdb3361 [place] [phone]. Slick Davie Basophils/100 WBC (Bld) 0.5 % Normal 0.2-2.0 [facility] Comment on above: Performed By: #### C BC ####[facility] Ilvqywwich[address] [place], [place] [address]Dr. Slick Broderick EO # 0.6 103/ul Normal 0.0-0.7 [facility] Comment on above: Performed By: #### C BC ####[facility] Elmeictfze7[address] [place], [place] [address]Dr. Meaganwendie Broderick Eosinophils/100 WBC (Bld) 10.4 % Critically high 0.9-7.0 [facility] Comment on above: Performed By: #### C BC ####[facility] Cngcijfxsg66[address] [place], [place] [address]Dr. Slick Broderick Erythrocyte distribution width (RBC) [Ratio] 14.0 % Normal 11.0-15.0 [facility] Comment on above: Performed By: #### C BC ####[facility] Egypxkgjhj4787[address] [place], [place] [address]Dr. Slick Broderick Hematocrit (Bld) [Volume fraction] 26.5 % Critically low 36.0-48.0 [facility] Comment on above: Performed By: #### C BC ####[facility] Drnciklxit84[address] [place], [place] [address]Dr. Slick Broderick Hemoglobin (Bld) [Mass/Vol] 8.4 g/dL Critically low 12.0-16.0 [facility] Comment on above: Performed By: #### C BC ####[facility] Tzsjvibmgp9[address] [place], [place] [address]Dr. Slick Broderick IG # 0.02 10e3/ul Normal 0.00-0.03 [facility] Comment on above: Performed By: #### C BC ####[facility] Uxkcwazgnd0151 [place] [phone]. Slick Davie IG % 0.4 % Normal 0.0-0.5 [facility] Comment on above: Performed By: #### C BC ####[facility] Oymepsnakz1916 [place] [phone] Slick Davie LYMPH # 0.9 103/ul Critically low 1.2-3.8 [facility] Comment on above: Performed By: #### C BC ####[facility] Mhubntstze2960 [place] [phone] Meaganwendie Broderick Lymphocytes/100 WBC (Bld) 15.6 % Critically low 20.5-60.0 [facility] Comment on above: Performed By: #### C BC ####[facility] Svarcivuna6459 [place] [address]Dr. Slick Broderick MANUAL DIFF REQ NO Normal [facility] Comment on above: Performed By: #### C BC ####[facility] Sihfoounyg8797 [place] [phone]. Slick Davie MCH (RBC) [Entitic mass] 29.2 pg Normal 26.7-34.0 [facility] Comment on above: Performed By: #### C BC ####[facility] Tjcmxjplfs7159 [place] [phone] Slick Davie MCHC (RBC) [Mass/Vol] 31.7 g/dL Normal 29.9-35.2 [facility] Comment on above: Performed By: #### C BC ####[facility] Vgturxzrjb1663 [place] [phone] Meaganwendie Broderick MCV (RBC) [Entitic vol] 92.0 fL Normal 81.0-99.0 [facility] Comment on above: Performed By: #### C BC ####[facility] Ivdehpxhzy5552 [place] [phone] Broderick MONO # 0.6 103/ul Normal 0.3-0.8 [facility] Comment on above: Performed By: #### C BC ####[facility] Unsjxalaop1761 [place] [address]Dr. Slick Broderick Monocytes/100 WBC (Bld) 10.1 % Normal 1.7-12.0 [facility] Comment on above: Performed By: #### C BC ####[facility] Pynqoxbxjv3820 [place] [address]Dr. Slick Broderick NEUT # 3.5 103/ul Normal 1.4-6.5 [facility] Comment on above: Performed By: #### C BC ####[facility] Tudwjnrpna9621 [place] [phone]. Slick Broderick Neutrophils/100 WBC (Bld) 63.0 % Normal 43.0-75.0 [facility] Comment on above: Performed By: #### C BC ####[facility] Qvlmgvfjxs1006 [place] [address]Dr. Slick Broderick Platelet mean volume (Bld) [Entitic vol] 10.0 fL Normal 9.5-13.5 [facility] Comment on above: Performed By: #### C BC ####[facility] Zukvvxpmsy9559 [place] [phone]. Slick Broderick PLT 198 103/ul Normal 150-450 [facility] Comment on above: Performed By: #### C BC ####[facility] Yzjvbkjbho8193 [place] [phone]. Slick Broderick RBC 2.88 106/ul Critically low 4.20-5.40 [facility] Comment on above: Performed By: #### C BC ####[facility] Whgxlpunpx4569 [place] [address]Dr. Slick Broderick WBC 5.6 103/ul Normal 4.0-11.0 [facility] Comment on above: Performed By: #### C BC ####[facility] Alapvwxrqd3972 [place] [phone]. Slick Broderick CT HEAD WO CONon 04-22-2022 CT HEAD WO CON Normal [facility] POINT OF CARE GLUCOSEon 04-12 Glucose [Mass/Vol] 110 mg/dL Critically high 74-106 T [facility] Comment on above: Performed By: #### P OCGLUC ####[facility] Fgltdvbyte5147 [place] [address]Dr. Slick Broderick PROF 14(COMP METB)on 022 Albumin [Mass/Vol] 3.0 g/dL Critically low 3.4-5.0 [facility] Comment on above: Performed By: #### C MP ####[facility] Cxyvncyhoj8996 [place] [address]Dr. Slick Broderick Albumin/Globulin [Mass ratio] 0.9 {ratio} Normal [facility] Comment on above: Performed By: #### C MP ####[facility] Nkwmsrnlqj3717 [place] [address]Dr. Slick Broderick ALP [Catalytic activity/Vol] 93 U/L Normal 46-116 [facility] Comment on above: Performed By: #### C MP ####[facility] Lzvvssdpqg0114 [place] [address]Dr. Slick Broderick ALT [Catalytic activity/Vol] 22 U/L Normal 14-59 [facility] Comment on above: Performed By: #### C MP ####[facility] Upckzeupwc0890 [place] [address]Dr. Slick Broderick Anion gap [Moles/Vol] 8.9 mmol/L Normal [facility] Comment on above: Performed By: #### C MP ####[facility] Ehfjlgmyus2055 [place] [address]Dr. Slick Broderick AST [Catalytic activity/Vol] 18 U/L Normal 15-37 [facility] Comment on above: Performed By: #### C MP ####[facility] Xchmotgvgd9[address] [place], [place] [address]Dr. Slick Broderick Bilirubin [Mass/Vol] 0.3 mg/dL Normal 0.2-1.0 [facility] Comment on above: Performed By: #### C MP ####[facility] Skowvomzkc16[address] [place], [place] [address]Dr. Slick Broderick Calcium [Mass/Vol] 9.6 mg/dL Normal 8.5-10.1 [facility] Comment on above: Performed By: #### C MP ####[facility] Fbjypdgjuo0013[address] [place], [place] [address]Dr. Slick Davie Chloride [Moles/Vol] 104 mmol/L Normal 98-107 [facility] Comment on above: Performed By: #### C MP ####[facility] Cyguosdurr3686[address] [place], [place] [address]Dr. Slick Davie CO2 [Moles/Vol] 30.8 mmol/L Normal 21.0-32.0 [facility] Comment on above: Performed By: #### C MP ####[facility] Lfjmcrfvpu294[address] [place], [place] [address]Dr. Slick Broderick Creatinine [Mass/Vol] 1.73 mg/dL Critically high 0.55-1.02 [facility] Comment on above: Performed By: #### C MP ####[facility] Fuswqsqfzg6968[address] [place], [place] [address]Dr. Slick Davie EGFR-AF JAMAICAN 35 mL/min/1.73m2 Critically low >=60 [facility] Comment on above: Performed By: #### C MP ####[facility] Dgqbouawus0830[address] [place], [place] [address]Dr. Slick Davie EGFR-NON AF JAMAICAN 29 mL/min/1.73m2 Critically low >=60 [facility] Comment on above: Performed By: #### C MP ####[facility] Nlfwglfuqt2927[address] [place], [place] [address]Dr. Slick Davie Globulin (S) [Mass/Vol] 3.4 g/dL Normal [facility] Comment on above: Performed By: #### C MP ####[facility] Ayelrbbvdn7417[address] [place], [place] [address]Dr. Slick Broderick Glucose [Mass/Vol] 94 mg/dL Normal 74-106 [facility] Comment on above: Performed By: #### C MP ####[facility] Kbjlnznfmx5049[address] [place], [place] [address]Dr. Slick Broderick Potassium [Moles/Vol] 4.7 mmol/L Normal 3.5-5.1 [facility] Comment on above: Performed By: #### C MP ####[facility] Xeulawlvci[address] [place], [place] [address]Dr. Slick Broderick Protein [Mass/Vol] 6.4 g/dL Normal 6.4-8.2 [facility] Comment on above: Performed By: #### C MP ####[facility] Fbslntemdq[address] [place], [place] [address]Dr. Slick Broderick Sodium [Moles/Vol] 139 mmol/L Normal 136-145 [facility] Comment on above: Performed By: #### C MP ####[facility] Kvpnhpwfvl53[address] [place], [place] [address]Dr. Slick Broderick Urea nitrogen [Mass/Vol] 46.0 mg/dL Critically high 7.0-18.0 [facility] Comment on above: Performed By: #### C MP ####[facility] Werqwaxzjh7[address] [place], [place] [address]Dr. Slick Broderick Urea nitrogen/Creatinine [Mass ratio] 26.6 mg/mg Normal [facility] Comment on above: Performed By: #### C MP ####[facility] Nnadtizomm6[address] [place], [place] [address]Dr. Slick Broderick PROF CHEM 8 (BAS METB)on Anion gap [Moles/Vol] 8.6 mmol/L Normal [facility] Comment on above: Performed By: #### B MP ####[facility] Caufudpbsj99[address] [place], [place] [address]Dr. Slick Broderick Calcium [Mass/Vol] 9.9 mg/dL Normal 8.5-10.1 [facility] Comment on above: Performed By: #### B MP ####[facility] Ikrzyooesq7667[address] [place], [place] [address]Dr. Slick Broderick Chloride [Moles/Vol] 103 mmol/L Normal 98-107 [facility] Comment on above: Performed By: #### B MP ####[facility] Fvifcjimwc9424 [place] [id number]. Slick Broderick CO2 [Moles/Vol] 29.5 mmol/L Normal 21.0-32.0 [facility] Comment on above: Performed By: #### B MP ####[facility] Bwqalsszpw5008 [place] [id number]. Slick Broderick Creatinine [Mass/Vol] 1.62 mg/dL Critically high 0.55-1.02 [facility] Comment on above: Performed By: #### B MP ####[facility] Nelaaaztkc9145 [place] [phone]. Slick Broderick EGFR-AF JAMAICAN 38 mL/min/1.73m2 Critically low >=60 [facility] Comment on above: Performed By: #### B MP ####[facility] Zaijpahdnc8858 [place] [address]Dr. Slick Broderick EGFR-NON AF JAMAICAN 31 mL/min/1.73m2 Critically low >=60 [facility] Comment on above: Performed By: #### B MP ####[facility] Mkayfskvfr8652 [place] [address]Dr. Slick Broderick Glucose [Mass/Vol] 125 mg/dL Critically high 74-106 [facility] Comment on above: Performed By: #### B MP ####[facility] Dzbaafdcwd6717 [place] [id number]. Slick Broderick Potassium [Moles/Vol] 4.1 mmol/L Normal 3.5-5.1 [facility] Comment on above: Performed By: #### B MP ####[facility] Pyjxlbfibc6570 [place] [phone]. Slick Broderick Sodium [Moles/Vol] 137 mmol/L Normal 136-145 [facility] Comment on above: Performed By: #### B MP ####[facility] Fqlghikbth3931 [place] [address]Dr. Slick Broderick Urea nitrogen [Mass/Vol] 41.0 mg/dL Critically high 7.0-18.0 [facility] Comment on above: Performed By: #### B MP ####[facility] Vjsbnqlnla0018 [place] [address]Dr. Slick Broderick Urea nitrogen/Creatinine [Mass ratio] 25.3 mg/mg Normal [facility] Comment on above: Performed By: #### B MP ####[facility] Qseslxqfyp0307 [place] [address]Dr. Slick Broderick PROTIMEon 04-22-2022 INR Coag (PPP) [Relative time] 1.08 {INR} Normal [facility] Comment on above: Performed By: #### P T, PTT ####[facility] Fbyvnwfvek[address] [place], [place] [address]Dr. Slick Broderick INR GUIDELINES SEE BELOW Normal [facility] Comment on above: Result Comment: EDMUND RED INR: 2.0 - 3.0 CONDITIONS NOT LISTED BELOW 2.5 - 3.5 FOR PROSTHETIC HEART VALVE REPLACEMENT 2.5 - 3.5 RECURRENT THROMBOSIS Performed By: #### P T, PTT ####[facility] Bitrxdqtod0870[address] [place], [place] [address]Dr. Slick Davie PT Coag (PPP) [Time] 11.6 s Normal 9.0-11.6 [facility] Comment on above: Performed By: #### P T, PTT ####[facility] Jbshzxfwub35[address] [place], [place] [address]Dr. Slick Broderick PTTon 04-22-2022 aPTT Coag (Bld) [Time] 30.7 s Normal 22.3-36.2 [facility] Comment on above: Performed By: #### P T, PTT ####[facility] Bdajlqlusg3456[address] [place], [place] [address]Dr. Slick Broderick XR TIB_FIB RT 2Von 2 XR TIB_FIB RT 2V Normal [facility] CBC AUTO DIFFon 04-21-2022 BASO # 0.0 103/ul Normal 0.0-0.1 [facility] Comment on above: Performed By: #### C BC ####[facility] Eeqwnpwixz43[address] [place], [place] [address]Dr. Slick Broderick Basophils/100 WBC (Bld) 0.3 % Normal 0.2-2.0 [facility] Comment on above: Performed By: #### C BC ####[facility] Wedhkjjudz467[address] [place], [place] [address]DrEmma Broderick EO # 0.6 103/ul Normal 0.0-0.7 [facility] Comment on above: Performed By: #### C BC ####[facility] Ajvhpiwegb4249[address] [place], [place] [address]Dr. Slick Broderick Eosinophils/100 WBC (Bld) 10.2 % Critically high 0.9-7.0 [facility] Comment on above: Performed By: #### C BC ####[facility] Wvazuroyvw4709[address] [place], [place] [address]Dr. Slick Broderick Erythrocyte distribution width (RBC) [Ratio] 14.2 % Normal 11.0-15.0 [facility] Comment on above: Performed By: #### C BC ####[facility] Fseplfhwke6796[address] [place], [place] [address]DrEmma Broderick Hematocrit (Bld) [Volume fraction] 25.5 % Critically low 36.0-48.0 [facility] Comment on above: Performed By: #### C BC ####[facility] Jkrkbcviki1147[address] [place], [place] [address]DrEmma Broderick Hemoglobin (Bld) [Mass/Vol] 8.1 g/dL Critically low 12.0-16.0 [facility] Comment on above: Performed By: #### C BC ####[facility] Ascstqxeeu8967[address] [place], [place] [address]Dr. Slick Broderick IG # 0.02 10e3/ul Normal 0.00-0.03 [facility] Comment on above: Performed By: #### C BC ####[facility] Bymupcbvcv0975[address] [place], [place] [address]DrEmma Broderick IG % 0.3 % Normal 0.0-0.5 [facility] Comment on above: Performed By: #### C BC ####[facility] Orecejgtzz3569[address] [place], [place] [address]DrEmma Broderick LYMPH # 0.8 103/ul Critically low 1.2-3.8 [facility] Comment on above: Performed By: #### C BC ####[facility] Mjlqjkzryd4074 [place] [address]DrEmma Broderick Lymphocytes/100 WBC (Bld) 13.2 % Critically low 20.5-60.0 [facility] Comment on above: Performed By: #### C BC ####[facility] Hpjwxikilb5673 [place] [address]DrEmma Broderick MANUAL DIFF REQ NO Normal [facility] Comment on above: Performed By: #### C BC ####[facility] Xdbgszktlz5653 [place] [address]DrEmma Broderick MCH (RBC) [Entitic mass] 29.5 pg Normal 26.7-34.0 [facility] Comment on above: Performed By: #### C BC ####[facility] Suntolrxde2740[address] [place], [place] [address]DrEmma Broderick MCHC (RBC) [Mass/Vol] 31.8 g/dL Normal 29.9-35.2 [facility] Comment on above: Performed By: #### C BC ####[facility] Ruocqrvlyv745[address] [place], [place] [address]DrEmma Broderick MCV (RBC) [Entitic vol] 92.7 fL Normal 81.0-99.0 [facility] Comment on above: Performed By: #### C BC ####[facility] Qydtwuofhg5249[address] [place], [place] [address]DrEmma Broderick MONO # 0.6 103/ul Normal 0.3-0.8 [facility] Comment on above: Performed By: #### C BC ####[facility] Jjfcspxjnf2505[address] [place], [place] [address]DrEmma Broderick Monocytes/100 WBC (Bld) 9.2 % Normal 1.7-12.0 [facility] Comment on above: Performed By: #### C BC ####[facility] Mfsilleaog1701[address] [place], [place] [address]DrEmma Broderick NEUT # 4.1 103/ul Normal 1.4-6.5 [facility] Comment on above: Performed By: #### C BC ####[facility] Kwgudmffeo0912 [place] [address]Dr. Slick Broderick Neutrophils/100 WBC (Bld) 66.8 % Normal 43.0-75.0 [facility] Comment on above: Performed By: #### C BC ####[facility] Usorrwgupe3697 [place] [address]Dr. Slick Broderick Platelet mean volume (Bld) [Entitic vol] 9.5 fL Normal 9.5-13.5 [facility] Comment on above: Performed By: #### C BC ####[facility] Wrculpqrbj8080[address] [place], [place] [address]Dr. Slick Broderick PLT 189 103/ul Normal 150-450 [facility] Comment on above: Performed By: #### C BC ####[facility] Umxtealayd5572 [place] [address]Dr. Slick Broderick RBC 2.75 106/ul Critically low 4.20-5.40 [facility] Comment on above: Performed By: #### C BC ####[facility] Ytmamubbna3740[address] [place], [place] [address]Dr. Slick Broderick WBC 6.2 103/ul Normal 4.0-11.0 [facility] Comment on above: Performed By: #### C BC ####[facility] Bcnjesyrva4509[address] [place], [place] [address]Dr. Slick Broderick BASO # 0.1 103/ul Normal 0.0-0.1 [facility] Comment on above: Performed By: #### C BC ####[facility] Zqtpynhivu3023 [place] [phone]. Slick Broderick Basophils/100 WBC (Bld) 0.8 % Normal 0.2-2.0 [facility] Comment on above: Performed By: #### C BC ####[facility] Kqxoedldqv4316 [place] [phone]. Slick Broderick EO # 0.8 103/ul Critically high 0.0-0.7 [facility] Comment on above: Performed By: #### C BC ####[facility] Rgxocsvftv5970 [place] [address]Dr. Slick Broderick Eosinophils/100 WBC (Bld) 11.7 % Critically high 0.9-7.0 [facility] Comment on above: Performed By: #### C BC ####[facility] Lnljaqylcs4412 [place] [address]Dr. Slick Broderick Erythrocyte distribution width (RBC) [Ratio] 14.1 % Normal 11.0-15.0 [facility] Comment on above: Performed By: #### C BC ####[facility] Rulxpqtlja782[address] [place], [place] [address]Dr. Slick Broderick Hematocrit (Bld) [Volume fraction] 27.3 % Critically low 36.0-48.0 [facility] Comment on above: Performed By: #### C BC ####[facility] Npudyajwov401[address] [place], [place] [address]Dr. Slick Broderick Hemoglobin (Bld) [Mass/Vol] 8.4 g/dL Critically low 12.0-16.0 [facility] Comment on above: Performed By: #### C BC ####[facility] Lhxuqqazfh6384[address] [place], [place] [address]Dr. Slick Broderick IG # 0.02 10e3/ul Normal 0.00-0.03 [facility] Comment on above: Performed By: #### C BC ####[facility] Ugqwafdcjh9070[address] [place], [place] [address]Dr. Slick Broderick IG % 0.3 % Normal 0.0-0.5 [facility] Comment on above: Performed By: #### C BC ####[facility] Vxryxoxujp6970[address] [place], [place] [address]DrEmma Slick Broderick LYMPH # 1.0 103/ul Critically low 1.2-3.8 [facility] Comment on above: Performed By: #### C BC ####[facility] Qbplttdnss7937[address] [place], [place] [address]Dr. Slick Davie Lymphocytes/100 WBC (Bld) 14.5 % Critically low 20.5-60.0 [facility] Comment on above: Performed By: #### C BC ####[facility] Cptbiszpae8724 [place] [address]DrEmma Broderick MANUAL DIFF REQ NO Normal [facility] Comment on above: Performed By: #### C BC ####[facility] Fcfeomgcjy8429 [place] [address]Dr. Slick Broderick MCH (RBC) [Entitic mass] 29.2 pg Normal 26.7-34.0 [facility] Comment on above: Performed By: #### C BC ####[facility] Atbbqvejfk449138 [address] [place], [place] [address]Dr. Slick Broderick MCHC (RBC) [Mass/Vol] 30.8 g/dL Normal 29.9-35.2 [facility] Comment on above: Performed By: #### C BC ####[facility] Hbnsboscth8812[address] [place], [place] [address]Dr. Slick Broderick MCV (RBC) [Entitic vol] 94.8 fL Normal 81.0-99.0 [facility] Comment on above: Performed By: #### C BC ####[facility] Lwyelicenc00[address] [place], [place] [address]DrEmma Broderick MONO # 0.6 103/ul Normal 0.3-0.8 [facility] Comment on above: Performed By: #### C BC ####[facility] Fnsnqapsjl58[address] [place], [place] [address]Dr. Slick Broderick Monocytes/100 WBC (Bld) 9.7 % Normal 1.7-12.0 [facility] Comment on above: Performed By: #### C BC ####[facility] Lnfnkuwwmm6599[address] [place], [place] [address]DrEmma Broderick NEUT # 4.2 103/ul Normal 1.4-6.5 [facility] Comment on above: Performed By: #### C BC ####[facility] Vicxurejbw9065[address] [place], [place] [address]DrEmma Broderick Neutrophils/100 WBC (Bld) 63.0 % Normal 43.0-75.0 [facility] Comment on above: Performed By: #### C BC ####[facility] Nslbeyfggi5113 [place] [address]Dr. Slick Broderick Platelet mean volume (Bld) [Entitic vol] 10.0 fL Normal 9.5-13.5 [facility] Comment on above: Performed By: #### C BC ####[facility] Dcqitmczsw0382 [place] [address]Dr. Slick Broderick PLT 210 103/ul Normal 150-450 [facility] Comment on above: Performed By: #### C BC ####[facility] Bvkwtycgpe9141 [place] [address]Dr. Slick Broderick RBC 2.88 106/ul Critically low 4.20-5.40 [facility] Comment on above: Performed By: #### C BC ####[facility] Singxepbqa9171 [place] [address]Dr. Slick Broderick WBC 6.6 103/ul Normal 4.0-11.0 [facility] Comment on above: Performed By: #### C BC ####[facility] Bpduefjsej5470 [place] [address]Dr. Slick Broderick CRPon 04-21-2022 CRP 0.4 mg/dL Normal <=1.0 [facility] Comment on above: Performed By: #### H STROPN, CRP, CMP ####[facility] Vbpnelljhc1133 [place] [address]Dr. Slick Broderick CT HEAD WO CONon 04-21-2022 CT HEAD WO CON Normal [facility] CULTURE BLOODon 04-21-2022 Microscopic examination of blood, culture Culture Observations: NO GROWTH AT 5 DAYS. [facility] Comment on above: Performed By: #### B LDCX2 ####[facility] Kbexgxnhnc6694 [place] [phone]. Slick Broderick Microscopic examination of blood, culture Culture Observations: NO GROWTH AT 5 DAYS. Normal [facility] Comment on above: Performed By: #### B LDCX1 ####[facility] Dbyifpvdrt6659 [place] [phone]. Slick Broderick CULTURE URINEon 04-21-2022 CULTURE URINE Culture Observations : MODERATE GROWTH OF MIXED GENITAL OMAR. NO POTENTIAL PATHOGENS SEEN. Normal [facility] Comment on above: Performed By: #### U RCX ####[facility] Djqnxcxjpo7788 [place] [phone]. Slick Broderick Covid-19 PCR (CVDTB)on 04-12 SARS-CoV-2 (COVID-19) RNA DONNIE+probe Ql (Unsp spec) Not detected Normal NOT DETECTED [facility] Comment on above: Result Comment: When diagnostic [...] for this test is supported by the [place] of Health and Human Service's declaration that [...] be used). Performed By: #### C VDTBH ####[facility] Lbkbawxsxg5360 [place] [address]Dr. Slick Broderick ER URINE PROFILEon 2 Bilirubin Ql (U) Negative Normal NEGATIVE [facility] Comment on above: Performed By: #### JANIS PEDRO ####[facility] Vuqqzimlzc8965[address] [place], [place] [address]Dr. Slick Davie Clarity (U) CLEAR Normal CLEAR [facility] Comment on above: Performed By: #### E JANIS PLEITEZ ####[facility] Bisjvrhreo0473 [place] [phone]. Slick Broderick Color (U) LT. YELLOW Normal YELLOW [facility] Comment on above: Performed By: #### Dennise PLEITEZ UMICRO ####[facility] Adzosibjph[address] [place], [place] [address]Dr. Slick Broderick ERUAHD A micrscopic examination will be performed if indicated. Normal [facility] Comment on above: Performed By: #### Dennise PLEITEZ UMICRO ####[facility] Mfixzgeedk687[address] [place], [place] [address]Dr. Slick Broderick Glucose Ql (U) Negative Normal NEGATIVE [facility] Comment on above: Performed By: #### Dennise PLEITEZ UMICRO ####[facility] Ozagklkeaj6776[address] [place], [place] [address]Dr. Slick Broderick Hemoglobin Ql (U) Negative Normal NEGATIVE [facility] Comment on above: Performed By: #### Dennise PLEITEZ UMICRO ####[facility] Smcuwsoytk5504[address] [place], [place] [address]Dr. Slick Broderick Ketones Ql (U) Negative Normal NEGATIVE [facility] Comment on above: Performed By: #### Dennise PLEITEZ UMICRO ####[facility] Ncvxaedqrp260[address] [place], [place] [address]Dr. Slick Broderick LEUKOCYTES TRACE Abnormal NEGATIVE [facility] Comment on above: Performed By: #### Dennise PLEITEZ UMICRO ####[facility] Ryivaqdwkc3586[address] [place], [place] [address]Dr. Slick Broderick Nitrite Ql (U) Negative Normal NEGATIVE [facility] Comment on above: Performed By: #### Dennise PLEITEZ UMICRO ####[facility] Mgudcwolvm577[address] [place], [place] [address]Dr. Slick Broderick pH (U) 5.5 [pH] Normal 5-9 [facility] Comment on above: Performed By: #### Dennise PLEITEZ UMICRO ####[facility] Oofqubygmj3069[address] [place], [place] [address]Dr. Slick Broderick SPEC GRAVITY 1.010 Normal 1.005-<=1.025 [facility] Comment on above: Performed By: #### AMBERLY PEDRORO ####[facility] Occtoxkmyk7709 [place] [address]Dr. Slick Broderick UA PROTEIN Negative Normal NEGATIVE/ TRACE [facility] Comment on above: Performed By: #### E AMBERLY PLEITEZRO ####[facility] Rlfrwfqkpj4654 [place] [address]Dr. Slick Broderick UR MICRO IND INDICATED Normal [facility] Comment on above: Performed By: #### AMBERLY PEDRORO ####[facility] Phbfuzacbx6520 [place] [address]Dr. Meaganwendie Davie Urobilinogen Qn (U) 0.2 {Hiren'U}/dL Normal 0.2 - 1. 0 [facility] Comment on above: Performed By: #### JANIS PEDRO ####[facility] Gqctiwoiic1892 [place] [address]Dr. Meaganwendie Davie LACTATE/LACTIC ACIDon 2021 Lactate [Moles/Vol] 1.0 mmol/L Normal 0.4-1.9 [facility] Comment on above: Performed By: #### L ACT ####[facility] Puvqmfxbgb942[address] [place], [place] [address]Dr. Slick Broderick POINT OF CARE GLUCOSEon 04-12 Glucose [Mass/Vol] 109 mg/dL Critically high 74-106 [facility] Comment on above: Performed By: #### P OCGLUC ####[facility] Ogctzsofsa395[address] [place], [place] [address]Dr. Slick Broderick Glucose [Mass/Vol] 93 mg/dL Normal 74-106 [facility] Comment on above: Performed By: #### P OCGLUC ####[facility] Voqgxerrmv9276[address] [place], [place] [address]Dr. Slick Broderick Glucose [Mass/Vol] 140 mg/dL Critically high 74-106 [facility] Comment on above: Performed By: #### P OCGLUC ####[facility] Bnhzlnhwqa7766[address] [place], [place] [address]Dr. Slick Broderick Glucose [Mass/Vol] 95 mg/dL Normal 74-106 [facility] Comment on above: Performed By: #### P OCGLUC ####[facility] Pbhxghlqud1686[address] [place], [place] [address]Dr. Slick Broderick PROF 14(COMP METB)on 022 Albumin [Mass/Vol] 2.9 g/dL Critically low 3.4-5.0 [facility] Comment on above: Performed By: #### C MP ####[facility] Bnskvvrigi7299[address] [place], [place] [address]Dr. Slick Broderick Albumin/Globulin [Mass ratio] 0.9 {ratio} Normal [facility] Comment on above: Performed By: #### C MP ####[facility] Wslqitqetm7124[address] [place], [place] [address]Dr. Slick Broderick ALP [Catalytic activity/Vol] 87 U/L Normal 46-116 [facility] Comment on above: Performed By: #### C MP ####[facility] Hirsrrpgwd579[address] [place], [place] [address]Dr. Slick Broderick ALT [Catalytic activity/Vol] 21 U/L Normal 14-59 [facility] Comment on above: Performed By: #### C MP ####[facility] Frpcdjtfnl4264[address] [place], [place] [address]Dr. Slick Broderick Anion gap [Moles/Vol] 7.7 mmol/L Normal [facility] Comment on above: Performed By: #### C MP ####[facility] Fcnklzxnvj9548[address] [place], [place] [address]Dr. Slick Broderick AST [Catalytic activity/Vol] 11 U/L Critically low 15-37 [facility] Comment on above: Performed By: #### C MP ####[facility] Jgqusxmyio317[address] [place], [place] [address]Dr. Slick Broderick Bilirubin [Mass/Vol] 0.2 mg/dL Normal 0.2-1.0 [facility] Comment on above: Performed By: #### C MP ####[facility] Avidqadwqz0740[address] [place], [place] [address]Dr. Slick Broderick Calcium [Mass/Vol] 9.4 mg/dL Normal 8.5-10.1 [facility] Comment on above: Performed By: #### C MP ####[facility] Scdyjounmg3896 [place] [address]Dr. Slick Davie Chloride [Moles/Vol] 107 mmol/L Normal 98-107 [facility] Comment on above: Performed By: #### C MP ####[facility] Nzpugkyaoz5955 [place] [address]Dr. Slick Davie CO2 [Moles/Vol] 31.2 mmol/L Normal 21.0-32.0 [facility] Comment on above: Performed By: #### C MP ####[facility] Kjpejefnde7608[address] [place], [place] [address]Dr. Meaganwendie Davie Creatinine [Mass/Vol] 2.06 mg/dL Critically high 0.55-1.02 [facility] Comment on above: Performed By: #### C MP ####[facility] Ocegxobcrw6[address] [place], [place] [address]Dr. Slick Davie EGFR-AF JAMAICAN 29 mL/min/1.73m2 Critically low >=60 [facility] Comment on above: Performed By: #### C MP ####[facility] Rniktluymw15[address] [place], [place] [address]Dr. Slick Davie EGFR-NON AF JAMAICAN 24 mL/min/1.73m2 Critically low >=60 [facility] Comment on above: Performed By: #### C MP ####[facility] Jkmecwkmon9606[address] [place], [place] [address]Dr. Meaganwendie Broderick Globulin (S) [Mass/Vol] 3.4 g/dL Normal [facility] Comment on above: Performed By: #### C MP ####[facility] Nwcefukrdb595[address] [place], [place] [address]Dr. Slick Broderick Glucose [Mass/Vol] 93 mg/dL Normal 74-106 [facility] Comment on above: Performed By: #### C MP ####[facility] Fjtvvfrvfa7230[address] [place], [place] [address]Dr. Slick Broderick Potassium [Moles/Vol] 4.9 mmol/L Normal 3.5-5.1 [facility] Comment on above: Performed By: #### C MP ####[facility] Dvfpluqtcu0382 [place] [address]Dr. Slick Broderick Protein [Mass/Vol] 6.3 g/dL Critically low 6.4-8.2 [facility] Comment on above: Performed By: #### C MP ####[facility] Fmytcezkki4438 [place] [address]Dr. Slick Broderick Sodium [Moles/Vol] 141 mmol/L Normal 136-145 [facility] Comment on above: Performed By: #### C MP ####[facility] Eetwdtconf[address] [place], [place] [address]Dr. Slick Broderick Urea nitrogen [Mass/Vol] 63.0 mg/dL Critically high 7.0-18.0 [facility] Comment on above: Performed By: #### C MP ####[facility] Vlogvtivva12[address] [place], [place] [address]Dr. Slick Broderick Urea nitrogen/Creatinine [Mass ratio] 30.6 mg/mg Normal [facility] Comment on above: Performed By: #### C MP ####[facility] Vlimjvtinf[address] [place], [place] [address]Dr. Slick Broderick Albumin [Mass/Vol] 3.1 g/dL Critically low 3.4-5.0 [facility] Comment on above: Performed By: #### H STROPN, CRP, CMP ####[facility] Bwxwfijqky3495 [place] [address]Dr. Slick Broderick Albumin/Globulin [Mass ratio] 0.9 {ratio} Normal [facility] Comment on above: Performed By: #### H STROPN, CRP, CMP ####[facility] Olnheawsee[address] [place], [place] [address]Dr. Slick Broderick ALP [Catalytic activity/Vol] 98 U/L Normal 46-116 [facility] Comment on above: Performed By: #### H STROPN, CRP, CMP ####[facility] [address] [place], [place] [address]Dr. Slick Broderick ALT [Catalytic activity/Vol] 17 U/L Normal 14-59 [facility] Comment on above: Performed By: #### H STROPN, CRP, CMP ####[facility] Woguxcifaq[address] [place] [address]Dr. Slick Broderick Anion gap [Moles/Vol] 4.3 mmol/L Normal [facility] Comment on above: Performed By: #### H STROPN, CRP, CMP ####[facility] Pwedqivwcl3063 [place] [address]Dr. Slick Broderick AST [Catalytic activity/Vol] 11 U/L Critically low 15-37 [facility] Comment on above: Performed By: #### H STROPN, CRP, CMP ####[facility] Yokuxmjlgc[address] [place], [place] [address]Dr. Slick Broderick Bilirubin [Mass/Vol] 0.2 mg/dL Normal 0.2-1.0 [facility] Comment on above: Performed By: #### H STROPN, CRP, CMP ####[facility] K[address]eby[address] [place], [place] [address]Dr. Slick Broderick Calcium [Mass/Vol] 9.6 mg/dL Normal 8.5-10.1 [facility] Comment on above: Performed By: #### H STROPN, CRP, CMP ####[facility] Obfwhapflz[address] [place], [place] [address]Dr. Slick Broderick Chloride [Moles/Vol] 104 mmol/L Normal 98-107 [facility] Comment on above: Performed By: #### H STROPN, CRP, CMP ####[facility] Usxjbuwzgl[address] [place], [place] [address]Dr. Slick Broderick CO2 [Moles/Vol] 32.3 mmol/L Critically high 21.0-32.0 [facility] Comment on above: Performed By: #### H STROPN, CRP, CMP ####[facility] Jecqxcykps[address] [place] [address]Dr. Slick Broderick Creatinine [Mass/Vol] 2.49 mg/dL Critically high 0.55-1.02 [facility] Comment on above: Performed By: #### H STROPN, CRP, CMP ####[facility] Xqhyoysqxo1486 [place] [address]Dr. Slick Broderick EGFR-AF J[place]ICAN 23 mL/min/1.73m2 Critically low >=60 [facility] Comment on above: Performed By: #### H STROPN, CRP, CMP ####[facility] Uujkdiuobp6[address] [place] [address]Dr. Slick Broderick EGFR-NON AF J[place]ICAN 19 mL/min/1.73m2 Critically low >=60 [facility] Comment on above: Performed By: #### H STROPN, CRP, CMP ####[facility] Wpvmqqgjqh15[address] [place] [address]Dr. Meaganwendie Davie Globulin (S) [Mass/Vol] 3.5 g/dL Normal [facility] Comment on above: Performed By: #### H STROPN, CRP, CMP ####[facility] Aiasomjkim59[address] [place] [address]Dr. Meaganwendie Davie Glucose [Mass/Vol] 112 mg/dL Critically high 74-106 [facility] Comment on above: Performed By: #### H STROPN, CRP, CMP ####[facility] Tyzduowaxs[address] [place], [place] [address]Dr. Slick Broderick Potassium [Moles/Vol] 4.6 mmol/L Normal 3.5-5.1 [facility] Comment on above: Performed By: #### H STROPN, CRP, CMP ####[facility] Exosjontiq[address] [place], [place] [address]Dr. Slick Broderick Protein [Mass/Vol] 6.6 g/dL Normal 6.4-8.2 [facility] Comment on above: Performed By: #### H STROPN, CRP, CMP ####[facility] Mbdoktcpdj[address] [place], [place] [address]Dr. Slick Broderick Sodium [Moles/Vol] 136 mmol/L Normal 136-145 [facility] Comment on above: Performed By: #### H STROPN, CRP, CMP ####[facility] Msoboxqxzu[address] [place], [place] [address]Dr. Slick Broderick Urea nitrogen [Mass/Vol] 74.0 mg/dL Critically high 7.0-18.0 [facility] Comment on above: Performed By: #### H STROPN, CRP, CMP ####[facility] Slgkgrmkde6052 [place] [id number]. Slick Broderick Urea nitrogen/Creatinine [Mass ratio] 29.7 mg/mg Normal [facility] Comment on above: Performed By: #### H STROPN, CRP, CMP ####[facility] Lbwjvzgpez1774 [place] [address]Dr. Slick Broderick SED [facility] SED RATE 32 mm/hr Critically high <=30 [facility] Comment on above: Performed By: #### S EDR ####[facility] Wyfofymvil[address] [place] [address]Dr. Slick Broderick TROPONIN, HIGH SENSITIVITYon 04-21-2022 HSTROP 8.6 pg/mL Normal 4.0-51.3 [facility] Comment on above: Result Comment: CUT- OFF POINTS HAVE BEEN ESTABLISHED BASED ON THE FOURTH UNIVERSAL DEFINITIONS OF MYOCARDIALINFARCTION. THE UPPER REFERENCE LIMIT (URL) OF TROPONIN, DEFINED THE 99TH PERCENTILE OFcTnI DISTRIBUTION IN A REFERENCE POPULATION, HAS BEEN CONFIRMED THE DECISION THRESHOLDFOR [place] DIAGNOSIS. Performed By: #### H STROPN, CRP, CMP ####[facility] Qxqutdupjw9370 [place] [address]Dr. Slick Broderick URINE MICROSCOPIC ONLYon BACTERIA TRACE Abnormal NONE SEEN [facility] Comment on above: Performed By: #### Dennise PLEITEZ UMICRO ####[facility] Viwltsruen9416 [place] [address]Dr. Slick Broderick Bacteria identified Cx Nom (U) INDICATED Normal [facility] Comment on above: Performed By: #### E RUR UMICRO ####[facility] Nedjkvjcbm2575 [place] [address]Dr. Slick Broderick CAST NONE SEEN Normal NONE SEEN [facility] Comment on above: Performed By: #### E RUFrench UMICRO ####[facility] Mazesblpic6625 [place] [address]Dr. Slick Broderick Crystals LM Nom (Urine sed) NONE SEEN Normal NONE SEEN [facility] Comment on above: Performed By: #### AMBERLY PEDRORO ####[facility] Wjlmiltkoh[address] [place], [place] [address]Dr. Slick Broderick Epithelial cells LM Ql (Urine sed) FEW Abnormal NONE SEEN /RARE [facility] Comment on above: Performed By: #### AMBERLY PEDRORO ####[facility] Daxyxnoxcu6[address] [place], [place] [address]Dr. Slick Broderick MUCOUS NONE SEEN Normal NONE SEEN [facility] Comment on above: Performed By: #### JANIS PEDRO ####[facility] Vn[address]lhbn[address] [place], [place] [address]Dr. Slick Broderick RBC 0-2 Normal 0-2 [facility] Comment on above: Performed By: #### JANIS PEDRO ####[facility] Rcckpxtryl[address] [place], [place] [address]Dr. Slick Broderick WBC 5-10 Abnormal NONE SEEN [facility] Comment on above: Performed By: #### JANIS PEDRO ####[facility] Ldkrvfxirz[address] [place], [place] [address]Dr. Slick Broderick XR CHEST 1 Von 04-21-2022 XR CHEST 1 V Normal [facility] CBC AUTO DIFFon 03-29-2022 BASO # 0.1 103/ul Normal 0.0-0.1 [facility] Comment on above: Performed By: #### C BC ####[facility] Ztashgdbtz[address] [place], [place] [address]Dr. Slick Broderick Basophils/100 WBC (Bld) 0.7 % Normal 0.2-2.0 [facility] Comment on above: Performed By: #### C BC ####[facility] Xxcyephilw9[address] [place], [place] [address]Dr. Slick Broderick EO # 0.4 103/ul Normal 0.0-0.7 [facility] Comment on above: Performed By: #### C BC ####[facility] Frivszhxrw2055 [place] [phone]. Slick Broderick Eosinophils/100 WBC (Bld) 4.8 % Normal 0.9-7.0 [facility] Comment on above: Performed By: #### C BC ####[facility] Krjaphkmzs4312 [place] [phone]. Slick Broderick Erythrocyte distribution width (RBC) [Ratio] 13.9 % Normal 11.0-15.0 [facility] Comment on above: Performed By: #### C BC ####[facility] Ostlzrxjfs9556 [place] [address]Dr. Slick Broderick Hematocrit (Bld) [Volume fraction] 28.0 % Critically low 36.0-48.0 [facility] Comment on above: Performed By: #### C BC ####[facility] [address]apks[address] [place], [place] [address]Dr. Slick Broderick Hemoglobin (Bld) [Mass/Vol] 8.8 g/dL Critically low 12.0-16.0 [facility] Comment on above: Performed By: #### C BC ####[facility] L[address]qatcesd[address] [place], [place] [address]Dr. Slick Broderick IG # 0.05 10e3/ul Critically high 0.00-0.03 [facility] Comment on above: Performed By: #### C BC ####[facility] V[address]ukhwlhb[address] [place], [place] [address]Dr. Slick Broderick IG % 0.7 % Critically high 0.0-0.5 [facility] Comment on above: Performed By: #### C BC ####[facility] Omkpaytlui[address] [place], [place] [address]Dr. Slick Broderick LYMPH # 1.0 103/ul Critically low 1.2-3.8 [facility] Comment on above: Performed By: #### C BC ####[facility] Puedmjlmbs[address] [place], [place] [address]Dr. Slick Broderick Lymphocytes/100 WBC (Bld) 13.0 % Critically low 20.5-60.0 [facility] Comment on above: Performed By: #### C BC ####[facility] Vvvfmvbnms2513 [place] [address]Dr. Slick Broderick MANUAL DIFF REQ NO Normal [facility] Comment on above: Performed By: #### C BC ####[facility] Spjsdjlqvc1115 [place] [phone]. Slick Broderick MCH (RBC) [Entitic mass] 28.9 pg Normal 26.7-34.0 [facility] Comment on above: Performed By: #### C BC ####[facility] Qrfqakkcqo4684 [place] [address]Dr. Slick Broderick MCHC (RBC) [Mass/Vol] 31.4 g/dL Normal 29.9-35.2 [facility] Comment on above: Performed By: #### C BC ####[facility] Rkaypnpgqe[address] [place], [place] [address]Dr. Slick Broderick MCV (RBC) [Entitic vol] 92.1 fL Normal 81.0-99.0 [facility] Comment on above: Performed By: #### C BC ####[facility] Xgsivbonbs[address] [place], [place] [address]Dr. Slick Broderick MONO # 0.8 103/ul Normal 0.3-0.8 [facility] Comment on above: Performed By: #### C BC ####[facility] Xakoxevyki[address] [place], [place] [address]Dr. Slick Broderick Monocytes/100 WBC (Bld) 10.7 % Normal 1.7-12.0 [facility] Comment on above: Performed By: #### C BC ####[facility] Ugmhgdhpne39[address] [place], [place] [address]DrEmma Broderick NEUT # 5.4 103/ul Normal 1.4-6.5 [facility] Comment on above: Performed By: #### C BC ####[facility] Tqfgwwdtvv[address] [place], [place] [address]DrEmma Broderick Neutrophils/100 WBC (Bld) 70.1 % Normal 43.0-75.0 [facility] Comment on above: Performed By: #### C BC ####[facility] Tmcqocogum1695 [place] [address]Dr. Slick Broderick Platelet mean volume (Bld) [Entitic vol] 8.9 fL Critically low 9.5-13.5 [facility] Comment on above: Performed By: #### C BC ####[facility] Soyxspwvnt2353 [place] [address]Dr. Slick Broderick PLT 221 103/ul Normal 150-450 [facility] Comment on above: Performed By: #### C BC ####[facility] Biarypnykb2373 [place] [address]Dr. Slick Broderick RBC 3.04 106/ul Critically low 4.20-5.40 [facility] Comment on above: Performed By: #### C BC ####[facility] Iyjedssqyh1577 [place] [address]DrEmma Broderick WBC 7.7 103/ul Normal 4.0-11.0 [facility] Comment on above: Performed By: #### C BC ####[facility] Slirmzista0669 [place] [address]DrEmma Broderick PRBC LEUKOREDUCEDon 03-29-20 PRBC LEUKOREDUCED Cross Match Result Compatible Unit Blood Type O Pos Unit Number [id number] Status Information Transfused Product ID Red Blood Cells Product Code [id number] Normal [facility] Comment on above: Performed By: #### P RBC ####[facility] Bgejfonwzw8604 [place] [address]DrEmma Broderick PROF CHEM 8 (BAS METB)on Anion gap [Moles/Vol] 9.6 mmol/L Normal [facility] Comment on above: Performed By: #### B MP ####[facility] Hifamxwhtr3082 [place] [phone] Broderick Calcium [Mass/Vol] 9.4 mg/dL Normal 8.5-10.1 [facility] Comment on above: Performed By: #### B MP ####[facility] Qxogwpjpdx6839 [place] [phone]. Slick Broderick Chloride [Moles/Vol] 101 mmol/L Normal 98-107 [facility] Comment on above: Performed By: #### B MP ####[facility] Veweborbwl5485 [place] [phone]. Slick Broderick CO2 [Moles/Vol] 28.3 mmol/L Normal 21.0-32.0 [facility] Comment on above: Performed By: #### B MP ####[facility] Kbzdyovbbf3792 [place] [address]Dr. Slick Broderick Creatinine [Mass/Vol] 1.56 mg/dL Critically high 0.55-1.02 [facility] Comment on above: Performed By: #### B MP ####[facility] Psopnekqfp8786 [place] [address]Dr. Slick Broderick EGFR-AF J[place]ICAN 39 mL/min/1.73m2 Critically low >=60 [facility] Comment on above: Performed By: #### B MP ####[facility] Bmnnnyggtj9140 [place] [phone]. Slick Broderick EGFR-NON AF J[place]ICAN 33 mL/min/1.73m2 Critically low >=60 [facility] Comment on above: Performed By: #### B MP ####[facility] Etqeaggoro5741 [place] [address]Dr. Slick Broderick Glucose [Mass/Vol] 88 mg/dL Normal 74-106 [facility] Comment on above: Performed By: #### B MP ####[facility] Bcbopngyyw8774 [place] [phone]. Slick Broderick Potassium [Moles/Vol] 4.9 mmol/L Normal 3.5-5.1 [facility] Comment on above: Performed By: #### B MP ####[facility] Zrphhjwpri5989 [place] [address]Dr. Slick Broderick Sodium [Moles/Vol] 134 mmol/L Critically low 136-145 [facility] Comment on above: Performed By: #### B MP ####[facility] Axzliavsxn0007 [place] [phone]. Slick Broderick Urea nitrogen [Mass/Vol] 50.0 mg/dL Critically high 7.0-18.0 [facility] Comment on above: Performed By: #### B MP ####[facility] Zvgptojekl[address] [place], [place] [address]Dr. Slick Davie Urea nitrogen/Creatinine [Mass ratio] 32.1 mg/mg Normal [facility] Comment on above: Performed By: #### B MP ####[facility] Skffmwgnwt[address] [place], [place] [address]Dr. Slick Davie CBC AUTO DIFFon 03-28-2022 BASO # 0.1 103/ul Normal 0.0-0.1 [facility] Comment on above: Performed By: #### C BC ####[facility] Sttkiouhjy[address] [place], [place] [address]Dr. Slick Broderick Basophils/100 WBC (Bld) 0.7 % Normal 0.2-2.0 [facility] Comment on above: Performed By: #### C BC ####[facility] Ucaixpdopx[address] [place], [place] [address]Dr. Slick Davie EO # 0.4 103/ul Normal 0.0-0.7 [facility] Comment on above: Performed By: #### C BC ####[facility] Yngwitqufh[address] [place], [place] [address]Dr. Slick Broderick Eosinophils/100 WBC (Bld) 5.5 % Normal 0.9-7.0 [facility] Comment on above: Performed By: #### C BC ####[facility] Bhequpdyxm[address] [place], [place] [address]Dr. Meaganwnedie Broderick Erythrocyte distribution width (RBC) [Ratio] 13.6 % Normal 11.0-15.0 [facility] Comment on above: Performed By: #### C BC ####[facility] Poiqwgrmbp[address] [place], [place] [address]Dr. Slick Broderick Hematocrit (Bld) [Volume fraction] 27.9 % Critically low 36.0-48.0 [facility] Comment on above: Performed By: #### C BC ####[facility] Ioiohimnle1986 [place] [phone]. Slick Broderick Hemoglobin (Bld) [Mass/Vol] 9.0 g/dL Critically low 12.0-16.0 [facility] Comment on above: Performed By: #### C BC ####[facility] Xxhnsaelpn7959 [place] [address]Dr. Slick Broderick IG # 0.02 10e3/ul Normal 0.00-0.03 [facility] Comment on above: Performed By: #### C BC ####[facility] Inctxcmqpg9307 [place] [address]Dr. Slick Broderick IG % 0.3 % Normal 0.0-0.5 [facility] Comment on above: Performed By: #### C BC ####[facility] Twrdoetfzk9129 [place] [address]Dr. Slick Broderick LYMPH # 0.9 103/ul Critically low 1.2-3.8 [facility] Comment on above: Performed By: #### C BC ####[facility] Qlaroleeec3642 [place] [address]Dr. Slick Broderick Lymphocytes/100 WBC (Bld) 13.0 % Critically low 20.5-60.0 [facility] Comment on above: Performed By: #### C BC ####[facility] Yssvnkfjtv9236 [place] [address]Dr. Slick Broderick MANUAL DIFF REQ NO Normal [facility] Comment on above: Performed By: #### C BC ####[facility] Xfphezugqx0814 [place] [phone]. Slick Broderick MCH (RBC) [Entitic mass] 29.6 pg Normal 26.7-34.0 [facility] Comment on above: Performed By: #### C BC ####[facility] Jshgrbdgmm7075 [place] [phone]. Slick Broderick MCHC (RBC) [Mass/Vol] 32.3 g/dL Normal 29.9-35.2 [facility] Comment on above: Performed By: #### C BC ####[facility] Pdfzsctuqh5189 [place] [phone]. Slick Broderick MCV (RBC) [Entitic vol] 91.8 fL Normal 81.0-99.0 [facility] Comment on above: Performed By: #### C BC ####[facility] Mearvqjnzf9752 [place] [phone]. Slick Broderick MONO # 0.7 103/ul Normal 0.3-0.8 [facility] Comment on above: Performed By: #### C BC ####[facility] Oustwtukit3190 [place] [phone]. Slick Broderick Monocytes/100 WBC (Bld) 11.1 % Normal 1.7-12.0 [facility] Comment on above: Performed By: #### C BC ####[facility] Etdkqqwjk[address] [place], [place] [address]Dr. Slick Broderick NEUT # 4.6 103/ul Normal 1.4-6.5 [facility] Comment on above: Performed By: #### C BC ####[facility] Awatywziii8377 [place] [phone]. Slick Broderick Neutrophils/100 WBC (Bld) 69.4 % Normal 43.0-75.0 [facility] Comment on above: Performed By: #### C BC ####[facility] Jfsujeufev4740 [place] [phone]. Slick Broderick Platelet mean volume (Bld) [Entitic vol] 8.9 fL Critically low 9.5-13.5 [facility] Comment on above: Performed By: #### C BC ####[facility] Ufkvmxumrx5070 [place] [phone]. Slick Broderick PLT 216 103/ul Normal 150-450 [facility] Comment on above: Performed By: #### C BC ####[facility] Usxcaxqctn9550 [place] [phone]. Slick Broderick RBC 3.04 106/ul Critically low 4.20-5.40 [facility] Comment on above: Performed By: #### C BC ####[facility] Kopqeuryzk2672 [place], [place] [address]Au. Slick Broderick WBC 6.7 103/ul Normal 4.0-11.0 [facility] Comment on above: Performed By: #### C BC ####[facility] Hdjcgfgjgh1597 [place] [phone]. Slick Broderick BASO # 0.0 103/ul Normal 0.0-0.1 [facility] Comment on above: Performed By: #### C BC ####[facility] Ruppqlbslt4401 [place] [phone]. Slick Broderick Basophils/100 WBC (Bld) 0.5 % Normal 0.2-2.0 [facility] Comment on above: Performed By: #### C BC ####[facility] Sxigzbtshv8974 [place] [address]Dr. Slick Broderick EO # 0.4 103/ul Normal 0.0-0.7 [facility] Comment on above: Performed By: #### C BC ####[facility] Pijypupgnp8663 [place] [phone]. Slick Broderick Eosinophils/100 WBC (Bld) 5.3 % Normal 0.9-7.0 [facility] Comment on above: Performed By: #### C BC ####[facility] Kmlmenwcme7030 [place] [phone]. Slick Broderick Erythrocyte distribution width (RBC) [Ratio] 12.9 % Normal 11.0-15.0 [facility] Comment on above: Performed By: #### C BC ####[facility] Xwjuifirpm2461 [place] [phone]. Slick Broderick Hematocrit (Bld) [Volume fraction] 23.9 % Critically low 36.0-48.0 [facility] Comment on above: Performed By: #### C BC ####[facility] Khfsvpsxki2200 [place] [phone]. Slick Broderick Hemoglobin (Bld) [Mass/Vol] 7.7 g/dL Critically low 12.0-16.0 [facility] Comment on above: Performed By: #### C BC ####[facility] Svxsfzhvit2997 [place] [phone]. Slick Broderick IG # 0.04 10e3/ul Critically high 0.00-0.03 [facility] Comment on above: Performed By: #### C BC ####[facility] Onabrleaty7135 [place] [phone]. Meaganwendie Broderick IG % 0.5 % Normal 0.0-0.5 [facility] Comment on above: Performed By: #### C BC ####[facility] Wxpfrhipdc1784 [place] [address]Dr. Slick Broderick LYMPH # 0.9 103/ul Critically low 1.2-3.8 [facility] Comment on above: Performed By: #### C BC ####[facility] Dmiybpzoqi2093 [place] [address]Dr. Slick Broderick Lymphocytes/100 WBC (Bld) 11.7 % Critically low 20.5-60.0 [facility] Comment on above: Performed By: #### C BC ####[facility] Pwkmakbbis6244 [place] [address]Dr. Slick Broderick MANUAL DIFF REQ NO Normal [facility] Comment on above: Performed By: #### C BC ####[facility] Elklittqzi1149 [place] [phone]. Slick Broderick MCH (RBC) [Entitic mass] 30.1 pg Normal 26.7-34.0 [facility] Comment on above: Performed By: #### C BC ####[facility] Fsynwlhpih0346 [place] [phone]. Slick Davie MCHC (RBC) [Mass/Vol] 32.2 g/dL Normal 29.9-35.2 [facility] Comment on above: Performed By: #### C BC ####[facility] Fyxzfycvrl9661 [place] [phone]. Slick Broderick MCV (RBC) [Entitic vol] 93.4 fL Normal 81.0-99.0 [facility] Comment on above: Performed By: #### C BC ####[facility] Byqeowcitp4116 [place] [phone]. Slick Broderick MONO # 0.9 103/ul Critically high 0.3-0.8 [facility] Comment on above: Performed By: #### C BC ####[facility] Pxkyyvpfxx7715 [place] [phone]. Slick Broderick Monocytes/100 WBC (Bld) 12.0 % Normal 1.7-12.0 [facility] Comment on above: Performed By: #### C BC ####[facility] Aiaanothjz9716 [place] [phone]. Slick Broderick NEUT # 5.4 103/ul Normal 1.4-6.5 [facility] Comment on above: Performed By: #### C BC ####[facility] Plnnngkxzz8153 [place] [address]Dr. Slick Broderick Neutrophils/100 WBC (Bld) 70.0 % Normal 43.0-75.0 [facility] Comment on above: Performed By: #### C BC ####[facility] Ctrymfgnfp9845 [place] [phone]. Slick Broderick Platelet mean volume (Bld) [Entitic vol] 9.0 fL Critically low 9.5-13.5 [facility] Comment on above: Performed By: #### C BC ####[facility] Nmheumrflr9324 [place] [phone]. Slick Broderick PLT 210 103/ul Normal 150-450 [facility] Comment on above: Performed By: #### C BC ####[facility] Wtospnzbyl6453 [place] [phone]. Slick Broderick RBC 2.56 106/ul Critically low 4.20-5.40 [facility] Comment on above: Performed By: #### C BC ####[facility] Jmezcopqwo8843 [place] [phone]. Slick Broderick WBC 7.7 103/ul Normal 4.0-11.0 [facility] Comment on above: Performed By: #### C BC ####[facility] Xnibdkbtyx4167 [place] [phone]. Slick Broderick CULTURE URINEon 03-28-2022 CULTURE URINE Culture Observations : NO GROWTH. Normal [facility] Comment on above: Performed By: #### U RCX ####[facility] Idgqqtulrd9537 [place] [phone]. Slick Broderick Covid-19 PCR (CVDTBH)on 03-12 SARS-CoV-2 (COVID-19) RNA DONNIE+probe Ql (Unsp spec) Not detected Normal NOT DETECTED [facility] Comment on above: Result Comment: When diagnostic [...] for this test is supported by the Research And [employer] Chemist of Health and Human Service's declaration that [...] be used). Performed By: #### C VDTBH ####[facility] Niibtrzwng97[address] [place] [id number]. Slick Broderick IRONon 03-28-2022 Iron [Mass/Vol] 32.0 ug/dL Critically low 50.0-170.0 [facility] Comment on above: Performed By: #### I YUNIOR ####[facility] Amtthhfcmx0[address] [place] [id number]. Slick Broderick POINT OF CARE GLUCOSEon 03-12 Glucose [Mass/Vol] 119 mg/dL Critically high 74-106 [facility] Comment on above: Performed By: #### P OCGLUC ####[facility] Ougrecohjp2122 [place] [id number]. Slick Broderick Glucose [Mass/Vol] 178 mg/dL Critically high 74-106 [facility] Comment on above: Performed By: #### P OCGLUC ####[facility] Rnnjrvkpjt4209 [place] [phone]. Slick Broderick Glucose [Mass/Vol] 106 mg/dL Normal 74-106 [facility] Comment on above: Performed By: #### P OCGLUC ####[facility] Wgkohueahs9[address] [place] [address]Dr. Slick Broderick PROF CHEM 8 (BAS METB)on Anion gap [Moles/Vol] 9.5 mmol/L Normal [facility] Comment on above: Performed By: #### B MP ####[facility] Lrkgpintko[address] [place], [place] [address]Dr. Slick Broderick Calcium [Mass/Vol] 9.5 mg/dL Normal 8.5-10.1 [facility] Comment on above: Performed By: #### B MP ####[facility] Njtnwlmbby[address] [place], [place] [address]Dr. Slick Broderick Chloride [Moles/Vol] 98 mmol/L Normal 98-107 [facility] Comment on above: Performed By: #### B MP ####[facility] Mkiwtkwdkd4[address] [place], [place] [address]Dr. lSick Broderick CO2 [Moles/Vol] 28.5 mmol/L Normal 21.0-32.0 [facility] Comment on above: Performed By: #### B MP ####[facility] Uriynznhmk2[address] [place], [place] [address]Dr. Meaganwendie Davie Creatinine [Mass/Vol] 1.90 mg/dL Critically high 0.55-1.02 [facility] Comment on above: Performed By: #### B MP ####[facility] Itdngowhxe7[address] [place], [place] [address]Dr. Slick Broderick EGFR-AF JAMAICAN 31 mL/min/1.73m2 Critically low >=60 [facility] Comment on above: Performed By: #### B MP ####[facility] Gmgbkrlivp7008 [place] [phone]. Slick Broderick EGFR-NON AF JAMAICAN 26 mL/min/1.73m2 Critically low >=60 [facility] Comment on above: Performed By: #### B MP ####[facility] Fonbkysfou0507 [place] [phone]. Slick Broderick Glucose [Mass/Vol] 102 mg/dL Normal 74-106 [facility] Comment on above: Performed By: #### B MP ####[facility] Jwqbbznksl3692 [place] [phone]. Meaganwendie Broderick Potassium [Moles/Vol] 4.0 mmol/L Normal 3.5-5.1 [facility] Comment on above: Performed By: #### B MP ####[facility] Bdskktcxyg[address] [place], [place] [address]Dr. Slick Broderick Sodium [Moles/Vol] 132 mmol/L Critically low 136-145 [facility] Comment on above: Performed By: #### B MP ####[facility] Hfevxoxrhl3959[address] [place], [place] [address]Dr. Slick Broderick Urea nitrogen [Mass/Vol] 56.0 mg/dL Critically high 7.0-18.0 [facility] Comment on above: Performed By: #### B MP ####[facility] Tyayxqvzby212[address] [place], [place] [address]Dr. Slick Broderick Urea nitrogen/Creatinine [Mass ratio] 29.5 mg/mg Normal [facility] Comment on above: Performed By: #### B MP ####[facility] Apxhlbjmno5395[address] [place], [place] [address]Dr. Slick Davie T4on 03-28-2022 T4 [Mass/Vol] 4.90 ug/dL Normal 4.80-13.[address] [facility] Comment on above: Performed By: #### T 4 ####[facility] Hrtfjsogfc8174[address] [place], [place] [address]Dr. Meaganwendie Davie TSHon 03-28-2022 TSH 2.765 uIU/mL Normal 0.358-3.740 [facility] Comment on above: Performed By: #### T SH ####[facility] Kdoyukloge925[address] [place], [place] [address]Dr. Slick Broderick TYPE AND SCREENon 03-28-2022 TYPE AND SCREEN Negative Normal [facility] Comment on above: Performed By: #### T NS ####[facility] Hrcdjihlnw7009[address] [place], [place] [address]Dr. Slick Broderick UA RANDOM W/MICROSCOPICon BACTERIA NONE SEEN Normal NONE SEEN [facility] Comment on above: Performed By: #### U AMIC ####[facility] Yadjstuqin8099[address] [place], [place] [address]Dr. Slick Broderick Bilirubin Ql (U) Negative Normal NEGATIVE [facility] Comment on above: Performed By: #### U AMIC ####[facility] Okkkrgxnzd27033[address] [place], [place] [address]Dr. Slick Broderick CAST NONE SEEN Normal NONE SEEN [facility] Comment on above: Performed By: #### U AMIC ####[facility] Tpqghivdvb9305[address] [place], [place] [address]Dr. Slick Broderick Clarity (U) CLEAR Normal CLEAR [facility] Comment on above: Performed By: #### U AMIC ####[facility] Jgwnzybbyj3899[address] [place], [place] [address]Dr. Slick Broderick Color (U) LT. YELLOW Normal YELLOW [facility] Comment on above: Performed By: #### U AMIC ####[facility] Oudomeskik7835[address] [place], [place] [address]Dr. Slick Broderick Crystals LM Nom (Urine sed) NONE SEEN Normal NONE SEEN [facility] Comment on above: Performed By: #### U AMIC ####[facility] Erenoerpqh3727[address] [place], [place] [address]Dr. Slick Broderick Epithelial cells LM Ql (Urine sed) FEW Abnormal NONE SEEN /RARE [facility] Comment on above: Performed By: #### U AMIC ####[facility] Ruijgccdcs0684[address] [place], [place] [address]Dr. Slick Broderick Glucose Ql (U) Negative Normal NEGATIVE [facility] Comment on above: Performed By: #### U AMIC ####[facility] Zkknjetlqk4939 [place] [address]Dr. Slick Broderick Hemoglobin Ql (U) MODERATE Abnormal NEGATIVE [facility] Comment on above: Performed By: #### U AMIC ####[facility] Oskahwyayo7819 [place] [address]Dr. Slick Broderick Ketones Ql (U) Negative Normal NEGATIVE [facility] Comment on above: Performed By: #### U AMIC ####[facility] Rmhoqpjcau1309[address] [place], [place] [address]Dr. Slick Broderick LEUKOCYTES TRACE Abnormal NEGATIVE [facility] Comment on above: Performed By: #### U AMIC ####[facility] Kdxjdrksub5815[address] [place], [place] [address]Dr. Slick Broderick MUCOUS NONE SEEN Normal NONE SEEN [facility] Comment on above: Performed By: #### U AMIC ####[facility] Bppgwifukw926[address] [place], [place] [address]Dr. Slick Broderick Nitrite Ql (U) Negative Normal NEGATIVE [facility] Comment on above: Performed By: #### U AMIC ####[facility] Prkdwumnhx7936[address] [place], [place] [address]Dr. Slick Broderick pH (U) 6.0 [pH] Normal 5-9 [facility] Comment on above: Performed By: #### U AMIC ####[facility] Vpdiaezjez3380[address] [place], [place] [address]Dr. Slick Broderick RBC 5-10 Abnormal 0-2 [facility] Comment on above: Performed By: #### U AMIC ####[facility] Umaftfjdso8194[address] [place], [place] [address]Dr. Slick Broderick SPEC GRAVITY <=1.005 Abnormal 1.005-<=1.025 [facility] Comment on above: Performed By: #### U AMIC ####[facility] Tfiaqnpqkv5460[address] [place], [place] [address]Dr. Slick Broderick UA PROTEIN Negative Normal NEGATIVE/ TRACE [facility] Comment on above: Performed By: #### U AMIC ####[facility] Ijomlkgwiz8698 [place] [id number]. Slick Broderick Urobilinogen Qn (U) 0.2 {Hiren'U}/dL Normal 0.2 - 1. 0 [facility] Comment on above: Performed By: #### U AMIC ####[facility] Rurtnawevt9494 [place] [address]Dr. Slick Brdoerick WBC 2-5 Abnormal NONE SEEN [facility] Comment on above: Performed By: #### U AMIC ####[facility] Jfmvxrgefb673[address] [place], [place] [address]Dr. Slick Broderick CBC AUTO DIFFon 03-27-2022 BASO # 0.0 103/ul Normal 0.0-0.1 [facility] Comment on above: Performed By: #### C BC ####[facility] Cvzdjmbqgd0737[address] [place], [place] [address]Dr. Slick Broderick Basophils/100 WBC (Bld) 0.5 % Normal 0.2-2.0 [facility] Comment on above: Performed By: #### C BC ####[facility] Ethxiyxjix4975[address] [place], [place] [address]Dr. Slick Broderick EO # 0.4 103/ul Normal 0.0-0.7 [facility] Comment on above: Performed By: #### C BC ####[facility] Pkuscktwfu726[address] [place], [place] [address]Dr. Slick Broderick Eosinophils/100 WBC (Bld) 5.2 % Normal 0.9-7.0 [facility] Comment on above: Performed By: #### C BC ####[facility] Vsddpcfyiu8360[address] [place], [place] [address]Dr. Slick Broderick Erythrocyte distribution width (RBC) [Ratio] 13.1 % Normal 11.0-15.0 [facility] Comment on above: Performed By: #### C BC ####[facility] Hfihlpcaws8667[address] [place], [place] [address]Dr. Slick Broderick Hematocrit (Bld) [Volume fraction] 24.7 % Critically low 36.0-48.0 [facility] Comment on above: Performed By: #### C BC ####[facility] Seyuopenaz7748 [place] [address]DrEmma Broderick Hemoglobin (Bld) [Mass/Vol] 7.9 g/dL Critically low 12.0-16.0 [facility] Comment on above: Performed By: #### C BC ####[facility] Wipeqmrbey9895 [place] [address]DrEmma Broderick IG # 0.06 10e3/ul Critically high 0.00-0.03 [facility] Comment on above: Performed By: #### C BC ####[facility] Yupwxtdbwp4451 [place] [address]DrEmma Broderick IG % 0.8 % Critically high 0.0-0.5 [facility] Comment on above: Performed By: #### C BC ####[facility] Wmeydcqxzo0123[address] [place], [place] [address]DrEmma Broderick LYMPH # 0.9 103/ul Critically low 1.2-3.8 [facility] Comment on above: Performed By: #### C BC ####[facility] Vztxszjcyn4975[address] [place], [place] [address]DrEmma Broderick Lymphocytes/100 WBC (Bld) 11.1 % Critically low 20.5-60.0 [facility] Comment on above: Performed By: #### C BC ####[facility] Wxdseqyzbg1118 [place] [address]DrEmma Broderick MANUAL DIFF REQ NO Normal [facility] Comment on above: Performed By: #### C BC ####[facility] Tslktseksc8338 [place] [address]DrEmma Broderick MCH (RBC) [Entitic mass] 29.7 pg Normal 26.7-34.0 [facility] Comment on above: Performed By: #### C BC ####[facility] Lgcbymudsi6165 [place] [address]DrEmma Broderick MCHC (RBC) [Mass/Vol] 32.0 g/dL Normal 29.9-35.2 [facility] Comment on above: Performed By: #### C BC ####[facility] Qlwrgeqgmb0864 [place] [address]DrEmma Broderick MCV (RBC) [Entitic vol] 92.9 fL Normal 81.0-99.0 [facility] Comment on above: Performed By: #### C BC ####[facility] Eskprktohs6014[address] [place], [place] [address]DrEmma Broderick MONO # 0.8 103/ul Normal 0.3-0.8 [facility] Comment on above: Performed By: #### C BC ####[facility] Btoaoptzvl773[address] [place], [place] [address]DrEmma Broderick Monocytes/100 WBC (Bld) 9.5 % Normal 1.7-12.0 [facility] Comment on above: Performed By: #### C BC ####[facility] Xoezldvufy457[address] [place], [place] [address]DrEmma Broderick NEUT # 5.8 103/ul Normal 1.4-6.5 [facility] Comment on above: Performed By: #### C BC ####[facility] Lrzwtkesso9125[address] [place], [place] [address]DrEmma Broderick Neutrophils/100 WBC (Bld) 72.9 % Normal 43.0-75.0 [facility] Comment on above: Performed By: #### C BC ####[facility] Cnnpjcyowf2616[address] [place], [place] [address]DrEmma Broderick Platelet mean volume (Bld) [Entitic vol] 8.9 fL Critically low 9.5-13.5 [facility] Comment on above: Performed By: #### C BC ####[facility] Mwukdqnrfs44[address] [place], [place] [address]DrEmma Broderick PLT 220 103/ul Normal 150-450 [facility] Comment on above: Performed By: #### C BC ####[facility] Miogqkbhag9[address] [place], [place] [address]DrEmma Broderick RBC 2.66 106/ul Critically low 4.20-5.40 [facility] Comment on above: Performed By: #### C BC ####[facility] Fcrzfdoigi2187 [place] [address]Dr. Slick Broderick WBC 7.9 103/ul Normal 4.0-11.0 [facility] Comment on above: Performed By: #### C BC ####[facility] Zecvhfhwxd0348 [place] [address]Dr. Slick Broderick OCC BLD IMMUNO SCREENon 03-12 OCCULT BLOOD Positive Abnormal NEGATIVE [facility] Comment on above: Performed By: #### O BSCRN ####[facility] Yksnbxwwpv4347 [place] [address]Dr. Slick Broderick PROF 14(COMP METB)on 022 Albumin [Mass/Vol] 3.2 g/dL Critically low 3.4-5.0 [facility] Comment on above: Performed By: #### C MP ####[facility] Jrvvepnlsy858[address] [place], [place] [address]Dr. Slick Broderick Albumin/Globulin [Mass ratio] 0.9 {ratio} Normal [facility] Comment on above: Performed By: #### C MP ####[facility] Skigaescmp4447[address] [place], [place] [address]Dr. Slick Broderick ALP [Catalytic activity/Vol] 101 U/L Normal 46-116 [facility] Comment on above: Performed By: #### C MP ####[facility] Uxwmmocjjr6309 [place] [address]Dr. Slick Broderick ALT [Catalytic activity/Vol] 28 U/L Normal 14-59 [facility] Comment on above: Performed By: #### C MP ####[facility] Cnuaajuocz268[address] [place], [place] [address]Dr. Slick Broderick Anion gap [Moles/Vol] 11.5 mmol/L Normal [facility] Comment on above: Performed By: #### C MP ####[facility] Zbypbttesz380838 [address] [place], [place] [address]Dr. Slick Broderick AST [Catalytic activity/Vol] 21 U/L Normal 15-37 [facility] Comment on above: Performed By: #### C MP ####[facility] Jijnpbixqt446[address] [place], [place] [address]Dr. Slick Broderick Bilirubin [Mass/Vol] 0.2 mg/dL Normal 0.2-1.0 [facility] Comment on above: Performed By: #### C MP ####[facility] Ptfeytlnig2917[address] [place], [place] [address]Dr. Slick Broderick Calcium [Mass/Vol] 9.3 mg/dL Normal 8.5-10.1 [facility] Comment on above: Performed By: #### C MP ####[facility] Mmvcjyskfa401[address] [place], [place] [address]Dr. Slick Broderick Chloride [Moles/Vol] 93 mmol/L Critically low 98-107 [facility] Comment on above: Performed By: #### C MP ####[facility] Vzygokoufr6306[address] [place], [place] [address]Dr. Slick Broderick CO2 [Moles/Vol] 27.3 mmol/L Normal 21.0-32.0 [facility] Comment on above: Performed By: #### C MP ####[facility] Ttkadhduht1884[address] [place], [place] [address]Dr. Slick Broderick Creatinine [Mass/Vol] 1.98 mg/dL Critically high 0.55-1.02 [facility] Comment on above: Performed By: #### C MP ####[facility] Qutkieglyx9494[address] [place], [place] [address]Dr. Slick Broderick EGFR-AF JAMAICAN 30 mL/min/1.73m2 Critically low >=60 [facility] Comment on above: Performed By: #### C MP ####[facility] Ndljfyuifn507[address] [place], [place] [address]Dr. Slick Broderick EGFR-NON AF JAMAICAN 25 mL/min/1.73m2 Critically low >=60 [facility] Comment on above: Performed By: #### C MP ####[facility] Zjkdcpslvk2687[address] [place], [place] [address]Dr. Slick Broderick Globulin (S) [Mass/Vol] 3.6 g/dL Normal [facility] Comment on above: Performed By: #### C MP ####[facility] Wttqcoocvb3470 [place] [address]Dr. Slick Broderick Glucose [Mass/Vol] 123 mg/dL Critically high 74-106 [facility] Comment on above: Performed By: #### C MP ####[facility] Npsnylvoch3564 [place] [address]Dr. Meaganwendie Broderick Potassium [Moles/Vol] 3.8 mmol/L Normal 3.5-5.1 [facility] Comment on above: Performed By: #### C MP ####[facility] Szcdqjqbye3717[address] [place], [place] [address]Dr. Slick Davie Protein [Mass/Vol] 6.8 g/dL Normal 6.4-8.2 [facility] Comment on above: Performed By: #### C MP ####[facility] Afiuhgcsip4387[address] [place], [place] [address]Dr. Meaganwendie Broderick Sodium [Moles/Vol] 128 mmol/L Critically low 136-145 [facility] Comment on above: Performed By: #### C MP ####[facility] Vxiphtpiri1577[address] [place], [place] [address]Dr. Slick Davie Urea nitrogen [Mass/Vol] 64.0 mg/dL Critically high 7.0-18.0 [facility] Comment on above: Performed By: #### C MP ####[facility] Jhiocnoifj5715[address] [place], [place] [address]Dr. Meaganwendie Broderick Urea nitrogen/Creatinine [Mass ratio] 32.3 mg/mg Normal [facility] Comment on above: Performed By: #### C MP ####[facility] Beinrtaisw7512[address] [place], [place] [address]Dr. Meaganwendie Broderick TROPONIN, HIGH SENSITIVITYon 03-27-2022 HSTROP 9.0 pg/mL Normal 4.0-51.3 [facility] Comment on above: Result Comment: CUT- OFF POINTS HAVE BEEN ESTABLISHED BASED ON THE FOURTH UNIVERSAL DEFINITIONS OF MYOCARDIALINFARCTION. THE UPPER REFERENCE LIMIT (URL) OF TROPONIN, DEFINED THE 99TH PERCENTILE OFcTnI DISTRIBUTION IN A REFERENCE POPULATION, HAS BEEN CONFIRMED THE DECISION THRESHOLDFOR [place] DIAGNOSIS. Performed By: #### 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 Slick Broderick T3 Uptake 31 % Normal 24-39 [facility] Comment on above: Performed By: #### T HYLC ####[facility] Zgzunihiwv1112 [place], [place] [address]Be. Slick Broderick T4 [Mass/Vol] 7.4 ug/dL Normal 4.5-12.0 [facility] Comment on above: Performed By: #### T HYLC ####[facility] Qvhhjxspus4649 [place], [place] [address]Nt. Slick Broderick VIT D 25-OH LABCORPon 2021 Vitamin D, 25-Hydroxy 58.7 ng/mL Normal 30.0-100.0 [facility] Comment on above: Result Comment: Loki min D deficiency has been defined by the [place] of[facility] and an Endocrine Society practice guideline as alevel of serum 25-OH vitamin D less than 20 ng/mL (1,2).The Endocrine Society went on to further define vitamin Dinsufficiency as a level between 21 and 29 ng/mL (2).1. IOM ([place] of Medicine). 2010. Dietary reference intakes for calcium and D. [place]: The National Academies Press.2. Maryam MF, [place], Ángela SCHAEFER, et al. Evaluation, treatment, and prevention of vitamin D deficiency: an Endocrine Society clinical practice guideline. JCEM. 2010; 96(7):1911-30. Performed By: #### V ITADLC ####[facility] Dbynomojkf1283 [place] [id number]. Slick Broderick CBC AUTO DIFFon 02-11-2022 BASO # 0.0 103/ul Normal 0.0-0.1 [facility] Comment on above: Performed By: #### C BC ####[facility] Xdnexsauyv6771 [place], [place] [address]Vo. Slick Broderick Basophils/100 WBC (Bld) 0.6 % Normal 0.2-2.0 [facility] Comment on above: Performed By: #### C BC ####[facility] Yywfqaaknv1076 [place] [address]Dr. Slick Broderick EO # 0.3 103/ul Normal 0.0-0.7 [facility] Comment on above: Performed By: #### C BC ####[facility] Kjagbrfvdr[address] [place], [place] [address]Dr. Slick Broderick Eosinophils/100 WBC (Bld) 4.6 % Normal 0.9-7.0 [facility] Comment on above: Performed By: #### C BC ####[facility] Thpzveorbi1000[address] [place], [place] [address]Dr. Slick Broderick Erythrocyte distribution width (RBC) [Ratio] 14.0 % Normal 11.0-15.0 [facility] Comment on above: Performed By: #### C BC ####[facility] Hhowqsbmfo733[address] [place], [place] [address]Dr. Slick Broderick Hematocrit (Bld) [Volume fraction] 28.4 % Critically low 36.0-48.0 [facility] Comment on above: Performed By: #### C BC ####[facility] Nbcxtrxyqk6916[address] [place], [place] [address]Dr. Slick Broderick Hemoglobin (Bld) [Mass/Vol] 9.3 g/dL Critically low 12.0-16.0 [facility] Comment on above: Performed By: #### C BC ####[facility] Dvcrickowp[address] [place], [place] [address]Dr. Slick Broderick IG # 0.03 10e3/ul Normal 0.00-0.03 [facility] Comment on above: Performed By: #### C BC ####[facility] Mrxznkothp908[address] [place], [place] [address]Dr. Slick Broderick IG % 0.5 % Normal 0.0-0.5 [facility] Comment on above: Performed By: #### C BC ####[facility] Pdiffeebia1535[address] [place], [place] [address]DrEmma Broderick LYMPH # 0.6 103/ul Critically low 1.2-3.8 [facility] Comment on above: Performed By: #### C BC ####[facility] Gxsqmwhlxz1704 [place] [address]Dr. Slick Broderick Lymphocytes/100 WBC (Bld) 9.5 % Critically low 20.5-60.0 [facility] Comment on above: Performed By: #### C BC ####[facility] Rxcdkcjfvo3144 [place] [address]DrEmma Broderick MANUAL DIFF REQ NO Normal [facility] Comment on above: Performed By: #### C BC ####[facility] Ucapzobkac4015 [place] [phone]. Slick Broderick MCH (RBC) [Entitic mass] 30.5 pg Normal 26.7-34.0 [facility] Comment on above: Performed By: #### C BC ####[facility] Szqddmwviv[address] [place], [place] [address]Dr. Slick Broderick MCHC (RBC) [Mass/Vol] 32.7 g/dL Normal 29.9-35.2 [facility] Comment on above: Performed By: #### C BC ####[facility] Rggoqajebv9[address] [place], [place] [address]DrEmma Broderick MCV (RBC) [Entitic vol] 93.1 fL Normal 81.0-99.0 [facility] Comment on above: Performed By: #### C BC ####[facility] Yahcbqwxjn[address] [place] [address]Dr. Slick Broderick MONO # 0.6 103/ul Normal 0.3-0.8 [facility] Comment on above: Performed By: #### C BC ####[facility] Ffpthohfq[address] [place], [place] [id number] Broderick Monocytes/100 WBC (Bld) 8.4 % Normal 1.7-12.0 [facility] Comment on above: Performed By: #### C BC ####[facility] Xnmolnkwcx[address] [place], [place] [address]DrEmma Broderick NEUT # 5.0 103/ul Normal 1.4-6.5 [facility] Comment on above: Performed By: #### C BC ####[facility] Dgnqrnwmur14[address] [place] [address]Dr. Slick Broderick Neutrophils/100 WBC (Bld) 76.4 % Critically high 43.0-75.0 [facility] Comment on above: Performed By: #### C BC ####[facility] Ozjujlnvts7304 [place] [id number]. Slick Broderick Platelet mean volume (Bld) [Entitic vol] 9.3 fL Critically low 9.5-13.5 [facility] Comment on above: Performed By: #### C BC ####[facility] Tiazfuikrh[address] [place] [address]Dr. Slick Broderick PLT 192 103/ul Normal 150-450 [facility] Comment on above: Performed By: #### C BC ####[facility] Yfcfyrhsto1819 [place] [address]Dr. Slick Broderick RBC 3.05 106/ul Critically low 4.20-5.40 [facility] Comment on above: Performed By: #### C BC ####[facility] Lirvzsuudo86[address] [place] [address]Dr. Slick Broderick WBC 6.6 103/ul Normal 4.0-11.0 [facility] Comment on above: Performed By: #### C BC ####[facility] Fkhgczyxgp6009 [place] [id number]. Slick Broderick IRONon 02-11-2022 Iron [Mass/Vol] 62.0 ug/dL Normal 50.0-170.0 [facility] Comment on above: Performed By: #### I YUNIOR ####[facility] Dmlxhrhaae77[address] [place] [address]Dr. Slick Broderick LIPID PROFILEon 02-11-2022 CHOL-HDL RATIO NORM SEE BELOW Normal [facility] Comment on above: Result Comment: 3.3 - 4.4 LOW RISK 4.4 - 7.1 AVERAGE RISK 7.1 - 11.0 MODERATE RISK >11.0 HIGH RISK Performed By: #### C MP, LIPID, TSH ####[facility] Pvqygyeuem2647 [place] [id number]. Slick Broderick Cholesterol [Mass/Vol] 204 mg/dL Critically high <=200 [facility] Comment on above: Performed By: #### C MP, LIPID, TSH ####[facility] Bgsrtcolwe5[address] [place] [id number]. Slick Broderick Cholesterol in HDL [Mass/Vol] 53 mg/dL Normal 40-60 [facility] Comment on above: Performed By: #### C MP, LIPID, TSH ####[facility] Ehqfnfmzuf1582 [place] [phone]. Slick Broderick Cholesterol in LDL [Mass/Vol] 134.0 mg/dL Normal [facility] Comment on above: Performed By: #### C MP, LIPID, TSH ####[facility] [address]ixfagduyq[address] [place], [place] [address]Dr. Slick Broderick Cholesterol.total/C holesterol in HDL [Mass ratio] 3.8 {ratio} Normal [facility] Comment on above: Performed By: #### C MP, LIPID, TSH ####[facility] Ecmwiursjb37[address] [place] [phone]. Slick Broderick HDL NORMAL > or = 60 mg/dl - LO W CARDIOVASCULAR RISK <40 mg/dl - HIGH CARDIOVASCULAR RISK Normal [facility] Comment on above: Performed By: #### C MP, LIPID, TSH ####[facility] Snaeflobfw68[address] [place] [address]Dr. Meaganlan Broderick LDL CALC NORMAL SEE BELOW Normal [facility] Comment on above: Result Comment: <100 mg/dl OPTIMAL 100 - 129 mg/dl NEAR OR ABOVE OPTIMAL 130 - 159 mg/dl BORDERLINE HIGH 160 - 189 mg/dl HIGH >190 mg/dl VERY HIGH Performed By: #### C MP, LIPID, TSH ####[facility] Pwntnmmtzo[address] [place], [place] [address]Dr. Meaganlan Broderick Triglyceride [Mass/Vol] 85 mg/dL Normal <=150 [facility] Comment on above: Performed By: #### C MP, LIPID, TSH ####[facility] Tzgaancahh4547 [place] [address]Dr. Slick Broderick VLDL CALC 17.0 mg/dL Normal [facility] Comment on above: Performed By: #### C MP, LIPID, TSH ####[facility] Suolthhlnm2322 [place] [address]Dr. Slick Broderick PROF 14(COMP METB)on 022 Albumin [Mass/Vol] 3.5 g/dL Normal 3.4-5.0 [facility] Comment on above: Performed By: #### C MP, LIPID, TSH ####[facility] Ozobyhyohh9730 [place] [address]Dr. Slick Broderick Albumin/Globulin [Mass ratio] 0.9 {ratio} Normal [facility] Comment on above: Performed By: #### C MP, LIPID, TSH ####[facility] Nzvyzrdyvo1286 [place] [address]Dr. Slick Broderick ALP [Catalytic activity/Vol] 93 U/L Normal 46-116 [facility] Comment on above: Performed By: #### C MP, LIPID, TSH ####[facility] Wbyoiaeftq6841 [place] [address]Dr. Slick Broderick ALT [Catalytic activity/Vol] 21 U/L Normal 14-59 [facility] Comment on above: Performed By: #### C MP, LIPID, TSH ####[facility] Dllkqpxiyp7781 [place] [address]Dr. Slick Broderick Anion gap [Moles/Vol] 13.7 mmol/L Normal [facility] Comment on above: Performed By: #### C MP, LIPID, TSH ####[facility] Eodcczshhf0985 [place] [address]Dr. Slick Broderick AST [Catalytic activity/Vol] 13 U/L Critically low 15-37 [facility] Comment on above: Performed By: #### C MP, LIPID, TSH ####[facility] Wbiidvmpnr2443 [place] [address]Dr. Slick Broderick Bilirubin [Mass/Vol] 0.4 mg/dL Normal 0.2-1.0 [facility] Comment on above: Performed By: #### C MP, LIPID, TSH ####[facility] Xbtlpbphzb1910 [place] [address]Dr. Slick Broderick Calcium [Mass/Vol] 9.2 mg/dL Normal 8.5-10.1 [facility] Comment on above: Performed By: #### C MP, LIPID, TSH ####[facility] Pbdrcaooxx3296 [place] [address]Dr. Slick Broderick Chloride [Moles/Vol] 96 mmol/L Critically low 98-107 [facility] Comment on above: Performed By: #### C MP, LIPID, TSH ####[facility] Dwsnpejrgo0328 [place] [address]Dr. Slick Broderick CO2 [Moles/Vol] 27.8 mmol/L Normal 21.0-32.0 [facility] Comment on above: Performed By: #### C MP, LIPID, TSH ####[facility] Anagvzctpw892[address] [place], [place] [address]Dr. Slick Broderick Creatinine [Mass/Vol] 1.52 mg/dL Critically high 0.55-1.02 [facility] Comment on above: Performed By: #### C MP, LIPID, TSH ####[facility] Euiainvhtp[address] [place], [place] [address]Dr. Slick Broderick EGFR-AF JAMAICAN 41 mL/min/1.73m2 Critically low >=60 [facility] Comment on above: Performed By: #### C MP, LIPID, TSH ####[facility] Rtgselkhlw[address] [place], [place] [address]Dr. Slick Broderick EGFR-NON AF JAMAICAN 34 mL/min/1.73m2 Critically low >=60 [facility] Comment on above: Performed By: #### C MP, LIPID, TSH ####[facility] Zvreglvlmc5131 [place] [address]Dr. Slick Broderick Globulin (S) [Mass/Vol] 3.7 g/dL Normal [facility] Comment on above: Performed By: #### C MP, LIPID, TSH ####[facility] Qgypgcyqhy22[address] [place], [place] [address]Dr. Slick Broderick Glucose [Mass/Vol] 96 mg/dL Normal 74-106 [facility] Comment on above: Performed By: #### C MP, LIPID, TSH ####[facility] Hyklzmmqqq2936 [place] [address]Dr. Slick Broderick Potassium [Moles/Vol] 4.5 mmol/L Normal 3.5-5.1 [facility] Comment on above: Performed By: #### C MP, LIPID, TSH ####[facility] Hccwinoayh5814 [place] [address]Dr. Slick Broderick Protein [Mass/Vol] 7.2 g/dL Normal 6.4-8.2 [facility] Comment on above: Performed By: #### C MP, LIPID, TSH ####[facility] Rnkhqiekwi1995 [place] [address]Dr. Slick Broderick Sodium [Moles/Vol] 133 mmol/L Critically low 136-145 [facility] Comment on above: Performed By: #### C MP, LIPID, TSH ####[facility] Gcnktfibqn2260 [place] [address]Dr. Slick Broderick Urea nitrogen [Mass/Vol] 37.0 mg/dL Critically high 7.0-18.0 [facility] Comment on above: Performed By: #### C MP, LIPID, TSH ####[facility] Yucgtpnrxw8596 [place] [address]Dr. Slick Broderick Urea nitrogen/Creatinine [Mass ratio] 24.3 mg/mg Normal [facility] Comment on above: Performed By: #### C MP, LIPID, TSH ####[facility] Xxwgpbaton6940 [place] [address]Dr. Slick Broderick TSHon 02-11-2022 TSH 3.993 uIU/mL Critically high 0.358-3.740 [facility] Comment on above: Performed By: #### C MP, LIPID, TSH ####[facility] Mlqyekufdj7996 [place] [address]Dr. Slick Broderick PRBC LEUKOREDUCEDon 12-18-19 22 PRBC LEUKOREDUCED Normal [facility] Comment on above: Performed By: #### P RBC ####[facility] Pwuorkbznu[address] [place], [place] [address]Dr. Slick Broderick PRBC LEUKOREDUCED Cross Match Result Compatible Unit Blood Type O Pos Unit Number [id number] Status Information Transfused Product ID Red Blood Cells Product Code [id number] Normal [facility] Comment on above: Performed By: #### P RBC ####[facility] Jtqvgqfyvp[address] [place], [place] [address]Dr. Slick Broderick H PYLORI ANTIBODY IGGon H. PYLORI IGG ABS 0.18 Index Value Normal 0.00-0.79 [facility] Comment on above: Result Comment: Nega tive <0.80 Equivocal 0.80 - 0.89 Positive >0.89 Performed By: #### H PYLLC ####[facility] Tsyloeujha4[address] [place], [place] [address]Dr. Slick Broderick BNPon 12-14-2021 Natriuretic peptide B (Bld) [Mass/Vol] 846.0 pg/mL Normal <=900.0 [facility] Comment on above: Performed By: #### C MP, BNP ####[facility] Weguadslln395[address] [place], [place] [address]Dr. Slick Broderick CBC AUTO DIFFon 12-14-2021 BASO # 0.1 103/ul Normal 0.0-0.1 [facility] Comment on above: Performed By: #### C BC ####[facility] Uirmnfxcjf8760[address] [place], [place] [address]Dr. Slick Broderick Basophils/100 WBC (Bld) 0.7 % Normal 0.2-2.0 [facility] Comment on above: Performed By: #### C BC ####[facility] Vxeasbsvhp[address] [place], [place] [address]DrEmma Broderick EO # 0.3 103/ul Normal 0.0-0.7 [facility] Comment on above: Performed By: #### C BC ####[facility] Jnwelzcizh1454[address] [place], [place] [address]DrEmma Broderick Eosinophils/100 WBC (Bld) 4.6 % Normal 0.9-7.0 [facility] Comment on above: Performed By: #### C BC ####[facility] Qbamphxova6662 [place] [address]Dr. Slick Brdoerick Erythrocyte distribution width (RBC) [Ratio] 20.0 % Critically high 11.0-15.0 [facility] Comment on above: Performed By: #### C BC ####[facility] Jhixnslzgq96[address] [place], [place] [address]Dr. Slick Broderick Hematocrit (Bld) [Volume fraction] 29.1 % Critically low 36.0-48.0 [facility] Comment on above: Performed By: #### C BC ####[facility] Rwfttrdevx5[address] [place], [place] [address]Dr. Slick Broderick Hemoglobin (Bld) [Mass/Vol] 9.1 g/dL Critically low 12.0-16.0 [facility] Comment on above: Performed By: #### C BC ####[facility] Jmuzmzcuiq[address] [place], [place] [address]Dr. Slick Broderick IG # 0.06 10e3/ul Critically high 0.00-0.03 [facility] Comment on above: Performed By: #### C BC ####[facility] Hktmrfmxjd[address] [place], [place] [address]Dr. Slick Broderick IG % 0.9 % Critically high 0.0-0.5 [facility] Comment on above: Performed By: #### C BC ####[facility] Vreamisqba54[address] [place], [place] [address]Dr. Slick Broderick LYMPH # 0.8 103/ul Critically low 1.2-3.8 [facility] Comment on above: Performed By: #### C BC ####[facility] Xjvrtfothg0[address] [place], [place] [address]Dr. Slick Broderick Lymphocytes/100 WBC (Bld) 11.2 % Critically low 20.5-60.0 [facility] Comment on above: Performed By: #### C BC ####[facility] Oebwzvtkcz76[address] [place] [address]Dr. Slick Davie MANUAL DIFF REQ NO Normal [facility] Comment on above: Performed By: #### C BC ####[facility] Lfpmvurjou8763 [place] [id number]. Slick Broderick MCH (RBC) [Entitic mass] 30.5 pg Normal 26.7-34.0 [facility] Comment on above: Performed By: #### C BC ####[facility] Hmyjcxjerz8908 [place] [address]Dr. Slick Davie MCHC (RBC) [Mass/Vol] 31.3 g/dL Normal 29.9-35.2 [facility] Comment on above: Performed By: #### C BC ####[facility] Fhenofizgl5168 [place] [address]Dr. Meaganwendie Broderick MCV (RBC) [Entitic vol] 97.7 fL Normal 81.0-99.0 [facility] Comment on above: Performed By: #### C BC ####[facility] Acquyfsrkn24[address] [place], [place] [address]Dr. Slick Davie MONO # 0.7 103/ul Normal 0.3-0.8 [facility] Comment on above: Performed By: #### C BC ####[facility] Hfobfqoowj8[address] [place], [place] [address]Dr. Meaganwendie Broderick Monocytes/100 WBC (Bld) 9.7 % Normal 1.7-12.0 [facility] Comment on above: Performed By: #### C BC ####[facility] Dnrclekwph8354 [place] [address]Dr. Meaganwendie Davie NEUT # 4.9 103/ul Normal 1.4-6.5 [facility] Comment on above: Performed By: #### C BC ####[facility] Aiursflmws9[address] [place], [place] [address]Dr. Meaganwendie Broderick Neutrophils/100 WBC (Bld) 72.9 % Normal 43.0-75.0 [facility] Comment on above: Performed By: #### C BC ####[facility] Wmaylrzjmz1469 [place] [address]Dr. Slick Broderick Platelet mean volume (Bld) [Entitic vol] 8.9 fL Critically low 9.5-13.5 [facility] Comment on above: Performed By: #### C BC ####[facility] Dpkfarpsvq7689 [place] [address]Dr. Slick Broderick PLT 239 103/ul Normal 150-450 [facility] Comment on above: Performed By: #### C BC ####[facility] Rdvawelikr287[address] [place], [place] [address]Dr. Slick Broderick RBC 2.98 106/ul Critically low 4.20-5.40 [facility] Comment on above: Performed By: #### C BC ####[facility] Lazrveavyp0364[address] [place], [place] [address]Dr. Slick Davie WBC 6.8 103/ul Normal 4.0-11.0 [facility] Comment on above: Performed By: #### C BC ####[facility] Sumjxotdud14[address] [place], [place] [address]Dr. Slick Davie BASO # 0.1 103/ul Normal 0.0-0.1 [facility] Comment on above: Performed By: #### C BC ####[facility] Uqxhisdsxd5375[address] [place], [place] [address]Dr. Slick Davie Basophils/100 WBC (Bld) 0.9 % Normal 0.2-2.0 [facility] Comment on above: Performed By: #### C BC ####[facility] Dnxirpomrf7138[address] [place], [place] [address]Dr. Slick Davie EO # 0.3 103/ul Normal 0.0-0.7 [facility] Comment on above: Performed By: #### C BC ####[facility] Hryazlindi1280[address] [place], [place] [address]Dr. Slick Davie Eosinophils/100 WBC (Bld) 4.9 % Normal 0.9-7.0 [facility] Comment on above: Performed By: #### C BC ####[facility] Mogfvrszyo366[address] [place], [place] [address]Dr. Slick Broderick Erythrocyte distribution width (RBC) [Ratio] 20.3 % Critically high 11.0-15.0 [facility] Comment on above: Performed By: #### C BC ####[facility] Asremzjnwf3510 [place] [address]Dr. Slick Broderick Hematocrit (Bld) [Volume fraction] 27.6 % Critically low 36.0-48.0 [facility] Comment on above: Performed By: #### C BC ####[facility] Zmnhxjnthi8184[address] [place], [place] [address]Dr. Slick Broderick Hemoglobin (Bld) [Mass/Vol] 8.7 g/dL Critically low 12.0-16.0 [facility] Comment on above: Performed By: #### C BC ####[facility] Krtyujqnqm1466[address] [place], [place] [address]Dr. Slick Broderick IG # 0.05 10e3/ul Critically high 0.00-0.03 [facility] Comment on above: Performed By: #### C BC ####[facility] Flecxlyadt34[address] [place], [place] [address]Dr. Slick Broderick IG % 0.7 % Critically high 0.0-0.5 [facility] Comment on above: Performed By: #### C BC ####[facility] Oqgquucsth167[address] [place], [place] [address]Dr. Slick Broderick LYMPH # 0.9 103/ul Critically low 1.2-3.8 [facility] Comment on above: Performed By: #### C BC ####[facility] Yndkdgiqjc33[address] [place], [place] [address]Dr. Slick Broderick Lymphocytes/100 WBC (Bld) 13.1 % Critically low 20.5-60.0 [facility] Comment on above: Performed By: #### C BC ####[facility] Ekpwmevaaq5925[address] [place], [place] [address]DrEmma Broderick MANUAL DIFF REQ NO Normal [facility] Comment on above: Performed By: #### C BC ####[facility] Rnmjwsvprr25[address] [place], [place] [address]Dr. Slick Broderick MCH (RBC) [Entitic mass] 31.0 pg Normal 26.7-34.0 [facility] Comment on above: Performed By: #### C BC ####[facility] Nhtbjhstte3678 [place] [address]Dr. Slick Broderick MCHC (RBC) [Mass/Vol] 31.5 g/dL Normal 29.9-35.2 [facility] Comment on above: Performed By: #### C BC ####[facility] Muehalaegw4648 [place] [address]Dr. Slick Broderick MCV (RBC) [Entitic vol] 98.2 fL Normal 81.0-99.0 [facility] Comment on above: Performed By: #### C BC ####[facility] Xeghhdlnny0358 [place] [address]Dr. Slick Broderick MONO # 0.8 103/ul Normal 0.3-0.8 [facility] Comment on above: Performed By: #### C BC ####[facility] Vcvgzwezoy5776 [place] [address]Dr. Slick Broderick Monocytes/100 WBC (Bld) 11.4 % Normal 1.7-12.0 [facility] Comment on above: Performed By: #### C BC ####[facility] Wqqaewmtgg1115 [place] [address]Dr. Slick Broderick NEUT # 4.8 103/ul Normal 1.4-6.5 [facility] Comment on above: Performed By: #### C BC ####[facility] Ufkiwbzcds5193 [place] [address]Dr. Slick Davie Neutrophils/100 WBC (Bld) 69.0 % Normal 43.0-75.0 [facility] Comment on above: Performed By: #### C BC ####[facility] Dhwqewaulb3378 [place] [address]Dr. Slick Davie Platelet mean volume (Bld) [Entitic vol] 9.3 fL Critically low 9.5-13.5 [facility] Comment on above: Performed By: #### C BC ####[facility] Ttryoxwzve9758 [place] [id number]. Slick Broderick PLT 229 103/ul Normal 150-450 [facility] Comment on above: Performed By: #### C BC ####[facility] Uzbrncsxsb2569 [place] [address]Dr. Slick Broderick RBC 2.81 106/ul Critically low 4.20-5.40 [facility] Comment on above: Performed By: #### C BC ####[facility] Gkncbhbzcm2755 [place] [address]Dr. Slick Broderick WBC 7.0 103/ul Normal 4.0-11.0 [facility] Comment on above: Performed By: #### C BC ####[facility] Zyfehcuiru1336 [place] [address]Dr. Slick Davie POINT OF CARE GLUCOSEon 07-0 Glucose [Mass/Vol] 255 mg/dL Critically high 74-106 [facility] Comment on above: Performed By: #### P OCGLUC ####[facility] Dlapirrlvm5[address] [place], [place] [address]Dr. Meaganwendie Broderick PROF 14(COMP METB)on 022 Albumin [Mass/Vol] 2.3 g/dL Critically low 3.4-5.0 [facility] Comment on above: Performed By: #### C MP, BNP ####[facility] Czheicjmbo3417 [place] [address]Dr. Slick Davie Albumin/Globulin [Mass ratio] 0.6 {ratio} Normal [facility] Comment on above: Performed By: #### C MP, BNP ####[facility] Oifmcetygw0317 [place] [address]Dr. Slick Broderick ALP [Catalytic activity/Vol] 94 U/L Normal 46-116 [facility] Comment on above: Performed By: #### C MP, BNP ####[facility] Zlartmuyij6530 [place] [address]Dr. Slick Broderick ALT [Catalytic activity/Vol] 17 U/L Normal 14-59 [facility] Comment on above: Performed By: #### C MP, BNP ####[facility] Fjdcgohtgf3973 [place] [address]Dr. Slick Broderick Anion gap [Moles/Vol] 11.6 mmol/L Normal [facility] Comment on above: Performed By: #### C MP, BNP ####[facility] Kwsnhbcvdn[address] [place], [place] [address]Dr. Slick Broderick AST [Catalytic activity/Vol] 13 U/L Critically low 15-37 [facility] Comment on above: Performed By: #### C MP, BNP ####[facility] Vywaeujvzr044[address] [place], [place] [address]Dr. Slick Broderick Bilirubin [Mass/Vol] 0.3 mg/dL Normal 0.2-1.0 [facility] Comment on above: Performed By: #### C MP, BNP ####[facility] Emfskodmxn6170[address] [place], [place] [address]Dr. Slick Broderick Calcium [Mass/Vol] 7.9 mg/dL Critically low 8.5-10.1 [facility] Comment on above: Performed By: #### C MP, BNP ####[facility] Klrmalezqr739[address] [place], [place] [address]Dr. Slick Broderick Chloride [Moles/Vol] 104 mmol/L Normal 98-107 [facility] Comment on above: Performed By: #### C MP, BNP ####[facility] Xvrfbdghhg4901[address] [place], [place] [address]Dr. Slick Broderick CO2 [Moles/Vol] 25.1 mmol/L Normal 21.0-32.0 [facility] Comment on above: Performed By: #### C MP, BNP ####[facility] Tbkfcnysuu[address] [place], [place] [address]Dr. Slick Broderick Creatinine [Mass/Vol] 1.64 mg/dL Critically high 0.55-1.02 [facility] Comment on above: Performed By: #### C MP, BNP ####[facility] Xmnrzhxrpb[address] [place], [place] [address]Dr. Slick Broderick EGFR-AF JAMAICAN 37 mL/min/1.73m2 Critically low >=60 [facility] Comment on above: Performed By: #### C MP, BNP ####[facility] Zvgmrbblfb5609 [place] [address]Dr. Slick Broderick EGFR-NON AF JAMAICAN 31 mL/min/1.73m2 Critically low >=60 [facility] Comment on above: Performed By: #### C MP, BNP ####[facility] Vfszujwxnp4625 [place] [address]Dr. Slick Broderick Globulin (S) [Mass/Vol] 3.6 g/dL Normal [facility] Comment on above: Performed By: #### C MP, BNP ####[facility] Ygznfmxfde4378[address] [place], [place] [address]Dr. Slick Broderick Glucose [Mass/Vol] 100 mg/dL Normal 74-106 [facility] Comment on above: Performed By: #### C MP, BNP ####[facility] Zpqstzspaa99[address] [place], [place] [address]Dr. Slick Broderick Potassium [Moles/Vol] 4.7 mmol/L Normal 3.5-5.1 [facility] Comment on above: Performed By: #### C MP, BNP ####[facility] Tdapmvremc[address] [place], [place] [address]Dr. Slick Broderick Protein [Mass/Vol] 5.9 g/dL Critically low 6.4-8.2 [facility] Comment on above: Performed By: #### C MP, BNP ####[facility] [address]wlguxnv[address] [place], [place] [address]Dr. Slick Broderick Sodium [Moles/Vol] 136 mmol/L Normal 136-145 [facility] Comment on above: Performed By: #### C MP, BNP ####[facility] [address]ow[address]oubr[address] [place], [place] [address]Dr. Slick Broderick Urea nitrogen [Mass/Vol] 27.0 mg/dL Critically high 7.0-18.0 [facility] Comment on above: Performed By: #### C MP, BNP ####[facility] Fvpomcertx[address] [place], [place] [address]Dr. Slick Broderick Urea nitrogen/Creatinine [Mass ratio] 16.5 mg/mg Normal [facility] Comment on above: Performed By: #### C MP, BNP ####[facility] Zspbjntrdr7[address] [place], [place] [address]Dr. Slick Broderick CBC AUTO DIFFon 12-13-2021 BASO # 0.0 103/ul Normal 0.0-0.1 [facility] Comment on above: Performed By: #### C BC ####[facility] Cmuguqlqtu8[address] [place], [place] [address]Dr. Slick Broderick Basophils/100 WBC (Bld) 0.5 % Normal 0.2-2.0 [facility] Comment on above: Performed By: #### C BC ####[facility] Qzgdikihik[address] [place], [place] [address]Dr. Slick Broderick EO # 0.3 103/ul Normal 0.0-0.7 [facility] Comment on above: Performed By: #### C BC ####[facility] Ygowehvkgv7[address] [place], [place] [address]Dr. Slick Broderick Eosinophils/100 WBC (Bld) 4.4 % Normal 0.9-7.0 [facility] Comment on above: Performed By: #### C BC ####[facility] Wwpobhpmaa95[address] [place], [place] [address]Dr. Slick Broderick Erythrocyte distribution width (RBC) [Ratio] 20.5 % Critically high 11.0-15.0 [facility] Comment on above: Performed By: #### C BC ####[facility] Cteoyzfykj7[address] [place], [place] [address]Dr. Slick Broderick Hematocrit (Bld) [Volume fraction] 29.5 % Critically low 36.0-48.0 [facility] Comment on above: Performed By: #### C BC ####[facility] Arqlrlfvqq0412[address] [place], [place] [address]Dr. Slick Broderick Hemoglobin (Bld) [Mass/Vol] 9.3 g/dL Critically low 12.0-16.0 [facility] Comment on above: Result Comment: post transfusion Performed By: #### C BC ####[facility] Kmxnhsrhxo6139 [place] [id number]. Slick Broderick IG # 0.07 10e3/ul Critically high 0.00-0.03 [facility] Comment on above: Performed By: #### C BC ####[facility] Cjquwmloyp4810 [place] [phone]. Slick Broderick IG % 0.9 % Critically high 0.0-0.5 [facility] Comment on above: Performed By: #### C BC ####[facility] Fqathdaaqc5967 [place] [phone]. Slick Broderick LYMPH # 0.9 103/ul Critically low 1.2-3.8 [facility] Comment on above: Performed By: #### C BC ####[facility] Kzkruxgntd4614 [place] [address]Dr. Slick Davie Lymphocytes/100 WBC (Bld) 11.5 % Critically low 20.5-60.0 [facility] Comment on above: Performed By: #### C BC ####[facility] Nkitmjbewu8878 [place] [address]Dr. Slick Broderick MANUAL DIFF REQ NO Normal [facility] Comment on above: Performed By: #### C BC ####[facility] Nfitstcxer2859 [place] [address]Dr. Slick Broderick MCH (RBC) [Entitic mass] 30.9 pg Normal 26.7-34.0 [facility] Comment on above: Performed By: #### C BC ####[facility] Qjanoltomu4856 [place] [address]Dr. Slick Broderick MCHC (RBC) [Mass/Vol] 31.5 g/dL Normal 29.9-35.2 [facility] Comment on above: Performed By: #### C BC ####[facility] Gcxoxgqscy3142 [place] [address]Dr. Slick Broderick MCV (RBC) [Entitic vol] 98.0 fL Normal 81.0-99.0 [facility] Comment on above: Performed By: #### C BC ####[facility] Btlieherjz7272 [place] [phone]. Slick Broderick MONO # 0.6 103/ul Normal 0.3-0.8 [facility] Comment on above: Performed By: #### C BC ####[facility] Wxruxwhshi9238 [place] [phone]. Slick Broderick Monocytes/100 WBC (Bld) 8.6 % Normal 1.7-12.0 [facility] Comment on above: Performed By: #### C BC ####[facility] Syyrbvrhei6289 [place] [phone]. Slick Broderick NEUT # 5.5 103/ul Normal 1.4-6.5 [facility] Comment on above: Performed By: #### C BC ####[facility] Lbpxzjfwzo3642 [place] [phone]. Slick Broderick Neutrophils/100 WBC (Bld) 74.1 % Normal 43.0-75.0 [facility] Comment on above: Performed By: #### C BC ####[facility] Ulionxhzvn6872 [place] [phone]. Slick Broderick Platelet mean volume (Bld) [Entitic vol] 9.0 fL Critically low 9.5-13.5 [facility] Comment on above: Performed By: #### C BC ####[facility] Kyqppdarls6758 [place] [phone]. Slick Broderick PLT 231 103/ul Normal 150-450 [facility] Comment on above: Performed By: #### C BC ####[facility] Qyduxwbfbp9528 [place] [phone]. Slick Broderick RBC 3.01 106/ul Critically low 4.20-5.40 [facility] Comment on above: Performed By: #### C BC ####[facility] Atuvfvfmef3909 [place] [phone]. Slick Broderick WBC 7.5 103/ul Normal 4.0-11.0 [facility] Comment on above: Performed By: #### C BC ####[facility] Wdbnefhbvn0624 [place] [address]Dr. Slick Broderick BASO # 0.0 103/ul Normal 0.0-0.1 [facility] Comment on above: Performed By: #### C BC ####[facility] Nntqxmbghs15[address] [place], [place] [address]Dr. Slick Broderick Basophils/100 WBC (Bld) 0.3 % Normal 0.2-2.0 [facility] Comment on above: Performed By: #### C BC ####[facility] Uqknwymdeo5020[address] [place], [place] [address]Dr. Slick Broderick EO # 0.3 103/ul Normal 0.0-0.7 [facility] Comment on above: Performed By: #### C BC ####[facility] Tlitzlsbzp7379[address] [place], [place] [address]Dr. Slick Broderick Eosinophils/100 WBC (Bld) 3.8 % Normal 0.9-7.0 [facility] Comment on above: Performed By: #### C BC ####[facility] Xjwsnzstyi9524[address] [place], [place] [address]Dr. Slick Broderick Erythrocyte distribution width (RBC) [Ratio] 17.4 % Critically high 11.0-15.0 [facility] Comment on above: Performed By: #### C BC ####[facility] Sjhfuaegjv89[address] [place], [place] [address]Dr. Slick Broderick Hematocrit (Bld) [Volume fraction] 22.4 % Critically low 36.0-48.0 [facility] Comment on above: Result Comment: Test Repeated Critical Value Verified Performed By: #### C BC ####[facility] Mpvooligon4240[address] [place], [place] [address]Dr. Slick Broderick Hemoglobin (Bld) [Mass/Vol] 7.1 g/dL Critically low 12.0-16.0 [facility] Comment on above: Performed By: #### C BC ####[facility] Fsurwbokus2345[address] [place], [place] [address]Dr. Slick Broderick IG # 0.06 10e3/ul Critically high 0.00-0.03 [facility] Comment on above: Performed By: #### C BC ####[facility] Whgprjrvhk3903 [place] [phone]. Slick Broderick IG % 0.8 % Critically high 0.0-0.5 [facility] Comment on above: Performed By: #### C BC ####[facility] Eexxewerie8753 [place] [phone]. Slick Broderick LYMPH # 0.8 103/ul Critically low 1.2-3.8 [facility] Comment on above: Performed By: #### C BC ####[facility] Cgnovpxggr7041 [place] [phone]. Slick Broderick Lymphocytes/100 WBC (Bld) 10.7 % Critically low 20.5-60.0 [facility] Comment on above: Performed By: #### C BC ####[facility] Moerydjapy6761 [place] [address]Dr. Slick Broderick MANUAL DIFF REQ NO Normal [facility] Comment on above: Performed By: #### C BC ####[facility] Ubtbgvocbz4654 [place] [phone]. Slick Broderick MCH (RBC) [Entitic mass] 32.3 pg Normal 26.7-34.0 [facility] Comment on above: Performed By: #### C BC ####[facility] Itqnfuzqxo2297 [place] [phone]. Slick Broderick MCHC (RBC) [Mass/Vol] 31.7 g/dL Normal 29.9-35.2 [facility] Comment on above: Performed By: #### C BC ####[facility] Itqzukhwes9037 [place] [phone]. Silck Broderick MCV (RBC) [Entitic vol] 101.8 fL Critically high 81.0-99.0 [facility] Comment on above: Performed By: #### C BC ####[facility] Vubxawuszw8501 [place] [phone]. Slick Broderick MONO # 0.8 103/ul Normal 0.3-0.8 [facility] Comment on above: Performed By: #### C BC ####[facility] Hxmzrvfgib2261 [place] [phone]. Slick Broderick Monocytes/100 WBC (Bld) 10.7 % Normal 1.7-12.0 [facility] Comment on above: Performed By: #### C BC ####[facility] Jeksywgexf5447 [place] [phone]. Slick Broderick NEUT # 5.6 103/ul Normal 1.4-6.5 [facility] Comment on above: Performed By: #### C BC ####[facility] Uibtomxtyc3281 [place] [phone]. Slick Broderick Neutrophils/100 WBC (Bld) 73.7 % Normal 43.0-75.0 [facility] Comment on above: Performed By: #### C BC ####[facility] Phgtqsyyyc8066 [place] [address]Dr. Slick Broderick Platelet mean volume (Bld) [Entitic vol] 9.4 fL Critically low 9.5-13.5 [facility] Comment on above: Performed By: #### C BC ####[facility] Cgksshbfhl2429 [place] [address]Dr. Slick Broderick PLT 209 103/ul Normal 150-450 [facility] Comment on above: Performed By: #### C BC ####[facility] Ilfyzxpban3559 [place] [phone]. Slick Broderick RBC 2.20 106/ul Critically low 4.20-5.40 [facility] Comment on above: Performed By: #### C BC ####[facility] Pjiqvltqwf1691 [place] [phone]. Slick Broderick WBC 7.6 103/ul Normal 4.0-11.0 [facility] Comment on above: Performed By: #### C BC ####[facility] Ihtqkkyxyt3555 [place] [address]Dr. Slick Broderick PROF 14(COMP METB)on 022 Albumin [Mass/Vol] 2.1 g/dL Critically low 3.4-5.0 [facility] Comment on above: Performed By: #### C MP ####[facility] Ioinokzijy7280 [place] [address]Dr. Slick Broderick Albumin/Globulin [Mass ratio] 0.7 {ratio} Normal [facility] Comment on above: Performed By: #### C MP ####[facility] Tfccwqmrst6242 [place] [address]Dr. Slick Broderick ALP [Catalytic activity/Vol] 83 U/L Normal 46-116 [facility] Comment on above: Performed By: #### C MP ####[facility] Jscpypijhw0393 [place] [address]Dr. Slick Broderick ALT [Catalytic activity/Vol] 12 U/L Critically low 14-59 [facility] Comment on above: Performed By: #### C MP ####[facility] Weflgtyqxp3382 [place] [address]Dr. Slick Broderick Anion gap [Moles/Vol] 14.0 mmol/L Normal [facility] Comment on above: Performed By: #### C MP ####[facility] Gdjbxvbykr55[address] [place], [place] [address]Dr. Slick Broderick AST [Catalytic activity/Vol] 13 U/L Critically low 15-37 [facility] Comment on above: Performed By: #### C MP ####[facility] Biwmbblzxh33[address] [place], [place] [address]Dr. Slick Broderick Bilirubin [Mass/Vol] 0.3 mg/dL Normal 0.2-1.0 [facility] Comment on above: Performed By: #### C MP ####[facility] Vabbgdyfiy78[address] [place], [place] [address]Dr. Slick Broderick Calcium [Mass/Vol] 7.4 mg/dL Critically low 8.5-10.1 [facility] Comment on above: Performed By: #### C MP ####[facility] Dosgvvgfau344[address] [place], [place] [address]Dr. Slick Broderick Chloride [Moles/Vol] 105 mmol/L Normal 98-107 [facility] Comment on above: Performed By: #### C MP ####[facility] Hcjeblgsku1427 [place] [phone]. Slick Broderick CO2 [Moles/Vol] 23.0 mmol/L Normal 21.0-32.0 [facility] Comment on above: Performed By: #### C MP ####[facility] Fmkfbhzoab7156 [place] [phone]. Slick Broderick Creatinine [Mass/Vol] 1.80 mg/dL Critically high 0.55-1.02 [facility] Comment on above: Performed By: #### C MP ####[facility] Hwodzyvybi1441 [place] [phone]. Slick Broderick EGFR-AF J[place]ICAN 33 mL/min/1.73m2 Critically low >=60 [facility] Comment on above: Performed By: #### C MP ####[facility] Bbtolucota3378 [place] [address]Dr. Slick Broderick EGFR-NON AF [place] 28 mL/min/1.73m2 Critically low >=60 [facility] Comment on above: Performed By: #### C MP ####[facility] Zkfjjdgurz7823 [place] [address]Dr. Slick Broderick Globulin (S) [Mass/Vol] 3.2 g/dL Normal [facility] Comment on above: Performed By: #### C MP ####[facility] Qwlonkkday3115 [place] [address]Dr. Slick Broderick Glucose [Mass/Vol] 85 mg/dL Normal 74-106 [facility] Comment on above: Performed By: #### C MP ####[facility] Mlwrkflvhb0151 [place] [phone]. Slick Broderick Potassium [Moles/Vol] 5.0 mmol/L Normal 3.5-5.1 [facility] Comment on above: Performed By: #### C MP ####[facility] Uzcwpdadhc8083 [place] [address]Dr. Slick Broderick Protein [Mass/Vol] 5.3 g/dL Critically low 6.4-8.2 [facility] Comment on above: Performed By: #### C MP ####[facility] Ygqbhuwcsd218[address] [place], [place] [address]Dr. Slick Broderick Sodium [Moles/Vol] 137 mmol/L Normal 136-145 [facility] Comment on above: Performed By: #### C MP ####[facility] Ditifpgjml6455[address] [place], [place] [address]Dr. Slick Broderick Urea nitrogen [Mass/Vol] 30.0 mg/dL Critically high 7.0-18.0 [facility] Comment on above: Performed By: #### C MP ####[facility] Vqbvtaytkb9995[address] [place], [place] [address]Dr. Slick Broderick Urea nitrogen/Creatinine [Mass ratio] 16.7 mg/mg Normal [facility] Comment on above: Performed By: #### C MP ####[facility] Ucunpfvbfd300[address] [place], [place] [address]Dr. Slick Broderick ABO RH RETYPEon 12-12-2021 ABO and Rh group Nom (Bld) DONE Normal [facility] Comment on above: Performed By: #### R ETYPE ####[facility] Kpsqqscvxa2426[address] [place], [place] [address]Dr. Slick Broderick BNPon 12-12-2021 Natriuretic peptide B (Bld) [Mass/Vol] 952.0 pg/mL Critically high <=900.0 [facility] Comment on above: Performed By: #### B NURSE ANESTHETIST, CRP, CMP ####[facility] Hxbjrrzhrh9[address] [place], [place] [address]Dr. Slick Broderick CBC AUTO DIFFon 12-12-2021 BASO # 0.0 103/ul Normal 0.0-0.1 [facility] Comment on above: Performed By: #### C BC ####[facility] Yxhbkrcquo2068[address] [place], [place] [address]Dr. Slick Broderick Basophils/100 WBC (Bld) 0.2 % Normal 0.2-2.0 [facility] Comment on above: Performed By: #### C BC ####[facility] Culigjslka7590[address] [place], [place] [address]Dr. Slick Broderick EO # 0.2 103/ul Normal 0.0-0.7 [facility] Comment on above: Performed By: #### C BC ####[facility] Gmwhfwfdnk1386 [place] [address]Dr. Slick Broderick Eosinophils/100 WBC (Bld) 2.6 % Normal 0.9-7.0 [facility] Comment on above: Performed By: #### C BC ####[facility] Rviqbqiupa8418 [place] [address]Dr. Slick Broderick Erythrocyte distribution width (RBC) [Ratio] 17.2 % Critically high 11.0-15.0 [facility] Comment on above: Performed By: #### C BC ####[facility] Ykysnuaehr3838[address] [place], [place] [address]Dr. Slick Broderick Hematocrit (Bld) [Volume fraction] 24.0 % Critically low 36.0-48.0 [facility] Comment on above: Performed By: #### C BC ####[facility] Degsuzpvyq2627[address] [place], [place] [address]Dr. Slick Broderick Hemoglobin (Bld) [Mass/Vol] 7.7 g/dL Critically low 12.0-16.0 [facility] Comment on above: Performed By: #### C BC ####[facility] Tlxilmaftj7514[address] [place], [place] [address]Dr. Slick Broderick IG # 0.05 10e3/ul Critically high 0.00-0.03 [facility] Comment on above: Performed By: #### C BC ####[facility] Bsirrbphwm8625 [place] [address]Dr. Slick Broderick IG % 0.5 % Normal 0.0-0.5 [facility] Comment on above: Performed By: #### C BC ####[facility] Rkvkdhihgg9038[address] [place], [place] [address]Dr. Slick Broderick LYMPH # 0.7 103/ul Critically low 1.2-3.8 [facility] Comment on above: Performed By: #### C BC ####[facility] Qzlybalmuz0148[address] [place], [place] [address]Dr. Meaganwendie Broderick Lymphocytes/100 WBC (Bld) 7.7 % Critically low 20.5-60.0 [facility] Comment on above: Performed By: #### C BC ####[facility] Jbbpwwtkcp7780 [place] [address]Dr. Meaganwendie Broderick MANUAL DIFF REQ NO Normal [facility] Comment on above: Performed By: #### C BC ####[facility] Cwzagygypc1411 [place] [address]Dr. Meaganwendie Broderick MCH (RBC) [Entitic mass] 32.6 pg Normal 26.7-34.0 [facility] Comment on above: Performed By: #### C BC ####[facility] Dbstqqdcft8767[address] [place], [place] [address]Dr. Slick Broderick MCHC (RBC) [Mass/Vol] 32.1 g/dL Normal 29.9-35.2 [facility] Comment on above: Performed By: #### C BC ####[facility] Ikzpephhlk611[address] [place], [place] [address]Dr. Slick Broderick MCV (RBC) [Entitic vol] 101.7 fL Critically high 81.0-99.0 [facility] Comment on above: Performed By: #### C BC ####[facility] Gdbutqozst4220[address] [place], [place] [address]Dr. Slick Broderick MONO # 0.8 103/ul Normal 0.3-0.8 [facility] Comment on above: Performed By: #### C BC ####[facility] Xdgzykwvac9233 [place] [address]Dr. Slick Broderick Monocytes/100 WBC (Bld) 8.5 % Normal 1.7-12.0 [facility] Comment on above: Performed By: #### C BC ####[facility] Zclatekzcy1724[address] [place], [place] [address]DrEmma Broderick NEUT # 7.3 103/ul Critically high 1.4-6.5 [facility] Comment on above: Performed By: #### C BC ####[facility] Bfmlmalxyu606[address] [place], [place] [address]Dr. Slick Broderick Neutrophils/100 WBC (Bld) 80.5 % Critically high 43.0-75.0 [facility] Comment on above: Performed By: #### C BC ####[facility] Joprcyhjip4055 [place] [address]Dr. Slick Broderick Platelet mean volume (Bld) [Entitic vol] 8.9 fL Critically low 9.5-13.5 [facility] Comment on above: Performed By: #### C BC ####[facility] Hmdigctifg047[address] [place], [place] [address]Dr. Slick Broderick PLT 204 103/ul Normal 150-450 [facility] Comment on above: Performed By: #### C BC ####[facility] Cnjqknmnkz99[address] [place], [place] [address]Dr. Slick Broderick RBC 2.36 106/ul Critically low 4.20-5.40 [facility] Comment on above: Performed By: #### C BC ####[facility] Ulllfqlcom020[address] [place], [place] [address]Dr. Slick Broderick WBC 9.1 103/ul Normal 4.0-11.0 [facility] Comment on above: Performed By: #### C BC ####[facility] Spkytdsqbe0834[address] [place], [place] [address]Dr. Slick Broderick CBC W MANUAL DIFFon 12-13-19 22 ATYPICAL LYMPH # Normal [facility] Comment on above: Performed By: #### C ELIZABETHMAN ####[facility] Pugbtdqpks75[address] [place], [place] [address]Dr. Slick Davie ATYPICAL LYMPH % Normal [facility] Comment on above: Performed By: #### C ELIZABETHMAN ####[facility] Frugldsikl6536[address] [place], [place] [address]Dr. Slick Broderick BAND # Normal 0.0-0.3 [facility] Comment on above: Performed By: #### C AIDEN ####[facility] Egnzcgcmij985[address] [place], [place] [address]Dr. Slick Broderick BAND % Normal 0-5 [facility] Comment on above: Performed By: #### C AIDEN ####[facility] Ztxhngbwdg9128 [place] [phone]. Slick Broderick BASOM # 0.00 103/ul Normal 0.00-0.10 [facility] Comment on above: Performed By: #### C BCMAN ####[facility] Xbfykqyrgj5758 [place] [phone]. Slick Broderick BASOM % 0.0 % Critically low 0.2-2.0 [facility] Comment on above: Performed By: #### C BCMAN ####[facility] Mlcoonteqc4970 [place] [phone]. Slick Broderick BLAST # Normal [facility] Comment on above: Performed By: #### C BCNAZARIO ####[facility] Ifvvnwykrh1608 [place] [address]Dr. Slick Broderick BLAST % Normal [facility] Comment on above: Performed By: #### C BCNAZARIO ####[facility] Czdnaooali7433[address] [place], [place] [address]Dr. Slick Broderick CORRECTED WBC Normal 4.0-11.0 [facility] Comment on above: Performed By: #### C BCNAZARIO ####[facility] Vyesalszkx7018[address] [place], [place] [address]Dr. Slick Broderick EOS # 0.35 103/ul Normal 0.00-0.70 [facility] Comment on above: Performed By: #### C BCNAZARIO ####[facility] Fwolvsacwu668[address] [place], [place] [address]Dr. Slick Broderick EOS% 3.0 % Normal 0.9-7.0 [facility] Comment on above: Performed By: #### C BCNAZARIO ####[facility] Gkzgikkbtt4536 [place] [address]Dr. Slick Broderick HCT 21.4 % Critically low 36.0-48.0 [facility] Comment on above: Result Comment: TEST REPEATED CRITICAL VALUE VERIFIED Performed By: #### C BCMAN ####[facility] Qgetxjatcm[address] [place], [place] [address]Dr. Slick Broderick HGB 6.6 g/dl Critically low 12.0-16.0 [facility] Comment on above: Result Comment: TEST REPEATED CRITICAL VALUE VERIFIED Performed By: #### C AIDEN ####[facility] Olyxbniokg7264 [place] [address]Dr. Slick Broderick LYMPHM # 0.59 103/ul Critically low 1.20-3.80 [facility] Comment on above: Performed By: #### C AIDEN ####[facility] Wjqiquhvks2821 [place] [address]Dr. Slick Broderick LYMPHM% 5.0 % Critically low 20.5-60.0 [facility] Comment on above: Performed By: #### Carlos Manuel WOLFE ####[facility] Aaolbswlot6[address] [place], [place] [address]Dr. Slick Broderick MCH 33.2 pg Normal 26.7-34.0 [facility] Comment on above: Performed By: #### Carlos Manuel WOLFE ####[facility] Ngjonewngq6977 [place] [address]Dr. Slick Broderick MCHC 30.8 g/dl Normal 29.9-35.2 [facility] Comment on above: Performed By: #### Carlos Manuel WOLFE ####[facility] Bmfpewmwdj0930 [place] [address]Dr. Slick Broderick MCV 107.5 fL Critically high 81.0-99.0 [facility] Comment on above: Result Comment: RBCS APPEAR MACROCYTIC ON PERIPHERAL SMEAR Performed By: #### Carlos Manuel WOLFE ####[facility] Yodzvfduxn3373 [place] [address]Dr. Slick Broderick METAMYELOCYTE # Normal [facility] Comment on above: Performed By: #### Carlos Manuel WOLFE ####[facility] Wmrrntoctf7735 [place] [address]Dr. Slick Broderick METAMYELOCYTE % Normal [facility] Comment on above: Performed By: #### Carlos Manuel WOLFE ####[facility] Yadupnlmqh6690 [place] [address]Dr. Meaganwendie Broderick MONOM# 0.71 103/ul Normal 0.30-0.80 [facility] Comment on above: Performed By: #### C AIDEN ####[facility] Zhdgshamvi8246 [place] [id number]. Slick Broderick MONOM% 6.0 % Normal 1.7-12.0 [facility] Comment on above: Performed By: #### C AIDEN ####[facility] Dtkapxswxu9837 [place], [place] [address]Zu. Slick Broderick MPV 9.2 fL Critically low 9.5-13.5 [facility] Comment on above: Performed By: #### C AIDEN ####[facility] Xqzblxuwmb0302 [place] [id number]. Slick Broderick MYELOCYTE # Normal [facility] Comment on above: Performed By: #### C AIDEN ####[facility] Omllrsxvba7910 [place] [phone]. Meaganwendie Broderick MYELOCYTE % Normal [facility] Comment on above: Performed By: #### C AIDEN ####[facility] Zcjhpickhz5384 [place] [phone]. Slick Broderick NRBC Normal [facility] Comment on above: Performed By: #### C AIDEN ####[facility] Cawwnmoybq3186 [place] [phone]. Slick Broderick PLT 232 103/ul Normal 150-450 [facility] Comment on above: Performed By: #### C AIDEN ####[facility] Tjghauhmmx5517 [place] [phone]. Slick Broderick RBC 1.99 106/ul Critically low 4.20-5.40 [facility] Comment on above: Performed By: #### C AIDEN ####[facility] Hjzgclfwpb9971 [place] [phone]. Meaganwendie Davie RDW 15.6 % Critically high 11.0-15.0 [facility] Comment on above: Performed By: #### C AIDEN ####[facility] Agqtboqkgw2148 [place] [phone]. Slick Broderick SEG # 10.15 103/ul Critically high 1.40-6.50 [facility] Comment on above: Performed By: #### C BCMAN ####[facility] Jgwbvxksys2073 [place] [address]Dr. Slick Broderick SEG % 86.0 % Critically high 43.0-75.0 [facility] Comment on above: Performed By: #### C BCMAN ####[facility] Lwfrzdmodi5627 [place] [phone]. Slick Broderick WBC 11.8 103/ul Critically high 4.0-11.0 [facility] Comment on above: Performed By: #### C BCMAN ####[facility] Zghmokdvdf10[address] [place], [place] [address]Dr. Slick Broderick CRPon 12-12-2021 CRP 10.1 mg/dL Critically high <=1.0 [facility] Comment on above: Performed By: #### B NURSE ANESTHETIST, CRP, CMP ####[facility] Bnsycrdpqw76[address] [place], [place] [address]Dr. Slick Broderick CULTURE BLOODon 12-12-2021 Microscopic examination of blood, culture Culture Observations: NO GROWTH AT 5 DAYS. Normal [facility] Comment on above: Performed By: #### B LDCX2 ####[facility] Uuckqrssby6526[address] [place], [place] [address]Dr. Slick Broderick Microscopic examination of blood, culture Culture Observations: NO GROWTH AT 5 DAYS. Normal [facility] Comment on above: Performed By: #### B LDCX1 ####[facility] Tsuagptukt90[address] [place], [place] [address]Dr. Slick Broderick CULTURE URINEon 12-12-2021 CULTURE URINE Culture Observations : NO GROWTH. Normal [facility] Comment on above: Performed By: #### U RCX ####[facility] Ewusyhughc6914[address] [place], [place] [address]Dr. Slick Broderick Covid-19 PCR (CVDTB)on SARS-CoV-2 (COVID-19) RNA DONNIE+probe Ql (Unsp spec) Not detected Normal NOT DETECTED [facility] Comment on above: Result Comment: When diagnostic [...] for this test is supported by the Research And Development Chemist of Health and Human Service's declaration that [...] be used). Performed By: #### C VDTB ####[facility] Pjjrpkrghd6006[address] [place], [place] [address]Dr. Slick Broderick ER URINE PROFILEon 2 Bilirubin Ql (U) Negative Normal NEGATIVE [facility] Comment on above: Performed By: #### U MICRO, ERUR ####[facility] Wegsshbanl0178[address] [place], [place] [address]Dr. Slick Broderick Clarity (U) CLOUDY Abnormal CLEAR [facility] Comment on above: Performed By: #### U MICRO, ERUR ####[facility] Jpnvitvnok5711[address] [place], [place] [address]Dr. Slick Broderick Color (U) LT. YELLOW Normal YELLOW [facility] Comment on above: Performed By: #### U MICRO, ERUR ####[facility] Dvbfoihkob1114[address] [place], [place] [address]Dr. Slick Broderick ERUAHD A micrscopic examination will be performed if indicated. Normal [facility] Comment on above: Performed By: #### U MICRO, ERUR ####[facility] Jwjkzfeszh9301[address] [place], [place] [address]Dr. Slick Broderick Glucose Ql (U) Negative Normal NEGATIVE [facility] Comment on above: Performed By: #### U MICRO, ERUR ####[facility] Wlqyeabqpm3745 [place] [address]Dr. Slick Broderick Hemoglobin Ql (U) Negative Normal NEGATIVE [facility] Comment on above: Performed By: #### U MICRO, ERUR ####[facility] Mnhwnejvyp9231 [place] [address]Dr. Slick Broderick Ketones Ql (U) Negative Normal NEGATIVE [facility] Comment on above: Performed By: #### U MICRO, ERUR ####[facility] Rcfusekuhn99[address] [place], [place] [address]Dr. Slick Broderick LEUKOCYTES MODERATE Abnormal NEGATIVE [facility] Comment on above: Performed By: #### U MICRO, ERUR ####[facility] Bkzudliwyj2875[address] [place], [place] [address]Dr. Slick Broderick Nitrite Ql (U) Negative Normal NEGATIVE [facility] Comment on above: Performed By: #### U MICRO, ERUR ####[facility] Mxnjmidklm248[address] [place], [place] [address]Dr. Slick Davie pH (U) 6.0 [pH] Normal 5-9 [facility] Comment on above: Performed By: #### U MICRO, ERUR ####[facility] Lquluhlbqf422[address] [place], [place] [address]Dr. Slick Broderick SPEC GRAVITY 1.010 Normal 1.005-<=1.025 [facility] Comment on above: Performed By: #### U MICRO, ERUR ####[facility] Ubftancnjo801[address] [place], [place] [address]Dr. Meaganwendie Broderick UA PROTEIN Negative Normal NEGATIVE/ TRACE [facility] Comment on above: Performed By: #### U MICRO, ERUR ####[facility] Yfdyuqecnu30[address] [place], [place] [address]Dr. Slick Broderick UR MICRO IND INDICATED Normal [facility] Comment on above: Performed By: #### U MICRO, ERUR ####[facility] Qedmawobyx5580[address] [place], [place] [address]Dr. Slick Broderick Urobilinogen Qn (U) 0.2 {Hiren'U}/dL Normal 0.2 - 1. 0 [facility] Comment on above: Performed By: #### U MICRO, ERUR ####[facility] Vlaiamekbj8683 [place] [address]Dr. Slick Broderick IRON AND TIBCon 12-12-2021 % SATURATION 7.0 % Normal [facility] Comment on above: Performed By: #### B 12FOL, FETIBC ####[facility] Tunoydbakc6585 [place] [address]Dr. Slick Broderick Iron [Mass/Vol] 18.0 ug/dL Critically low 50.0-170.0 [facility] Comment on above: Performed By: #### B 12FOL, FETIBC ####[facility] Dogobsmjaw8880[address] [place], [place] [address]Dr. Slick Broderick TIBC DIRECT 257.0 ug/dL Normal 250.0-450.[address] [facility] Comment on above: Performed By: #### B 12FOL, FETIBC ####[facility] Hefwqtbuxe7744[address] [place], [place] [address]Dr. Slick Broderick LACTATE/LACTIC ACIDon 2021 Lactate [Moles/Vol] 0.7 mmol/L Normal 0.4-1.9 [facility] Comment on above: Performed By: #### L ACT ####[facility] Jkamrpjkdf9930[address] [place], [place] [address]Dr. Slick Broderick OCC BLD IMMUNO SCREENon OCCULT BLOOD Negative Normal NEGATIVE [facility] Comment on above: Performed By: #### O BSCRN ####[facility] Ugopyqtuek5091 [place] [address]Dr. Slick Broderick PROF 14(COMP METB)on 022 Albumin [Mass/Vol] 2.6 g/dL Critically low 3.4-5.0 [facility] Comment on above: Performed By: #### B NURSE ANESTHETIST, CRP, CMP ####[facility] Ytdxywudfz5189 [place] [address]Dr. Slick Broderick Albumin/Globulin [Mass ratio] 0.7 {ratio} Normal [facility] Comment on above: Performed By: #### B NURSE ANESTHETIST, CRP, CMP ####[facility] Jlzbekwylz4092 [place] [phone]. Slick Broderick ALP [Catalytic activity/Vol] 105 U/L Normal 46-116 [facility] Comment on above: Performed By: #### B NURSE ANESTHETIST, CRP, CMP ####[facility] Wrtizlnobr6432 [place] [address]Dr. Slick Broderick ALT [Catalytic activity/Vol] 16 U/L Normal 14-59 [facility] Comment on above: Performed By: #### B NURSE ANESTHETIST, CRP, CMP ####[facility] Luxkscoudp9332 [place] [address]Dr. Slick Broderick Anion gap [Moles/Vol] 11.7 mmol/L Normal [facility] Comment on above: Performed By: #### B NURSE ANESTHETIST, CRP, CMP ####[facility] Eoruhzbijb11[address] [place], [place] [address]Dr. Slick Broderick AST [Catalytic activity/Vol] 11 U/L Critically low 15-37 [facility] Comment on above: Performed By: #### B NURSE ANESTHETIST, CRP, CMP ####[facility] Lmxlafqxse3426[address] [place], [place] [address]Dr. Slick Broderick Bilirubin [Mass/Vol] 0.3 mg/dL Normal 0.2-1.0 [facility] Comment on above: Performed By: #### B NURSE ANESTHETIST, CRP, CMP ####[facility] Ibxlzsqmly907[address] [place], [place] [address]Dr. Slick Broderick Calcium [Mass/Vol] 7.8 mg/dL Critically low 8.5-10.1 [facility] Comment on above: Performed By: #### B NURSE ANESTHETIST, CRP, CMP ####[facility] Zuybvfuusw1309 [place] [address]Dr. Slick Broderick Chloride [Moles/Vol] 105 mmol/L Normal 98-107 [facility] Comment on above: Performed By: #### B NURSE ANESTHETIST, CRP, CMP ####[facility] Cqawlsdvsc5657 [place] [address]Dr. Slick Broderick CO2 [Moles/Vol] 24.2 mmol/L Normal 21.0-32.0 [facility] Comment on above: Performed By: #### B NURSE ANESTHETIST, CRP, CMP ####[facility] Lukwtzelfe307[address] [place], [place] [address]Dr. Slick Broderick Creatinine [Mass/Vol] 1.96 mg/dL Critically high 0.55-1.02 [facility] Comment on above: Performed By: #### B NURSE ANESTHETIST, CRP, CMP ####[facility] Gbrddkdymp6198[address] [place], [place] [address]Dr. Slick Broderick EGFR-AF JAMAICAN 30 mL/min/1.73m2 Critically low >=60 [facility] Comment on above: Performed By: #### B NURSE ANESTHETIST, CRP, CMP ####[facility] Bjznwtgxvk7804[address] [place], [place] [address]Dr. Slick Broderick EGFR-NON AF JAMAICAN 25 mL/min/1.73m2 Critically low >=60 [facility] Comment on above: Performed By: #### B NURSE ANESTHETIST, CRP, CMP ####[facility] Xvwbkykjmi257[address] [place], [place] [address]Dr. Slick Broderick Globulin (S) [Mass/Vol] 3.8 g/dL Normal [facility] Comment on above: Performed By: #### B NURSE ANESTHETIST, CRP, CMP ####[facility] Yqaoikukbl5736[address] [place], [place] [address]Dr. Slick Broderick Glucose [Mass/Vol] 91 mg/dL Normal 74-106 [facility] Comment on above: Performed By: #### B NURSE ANESTHETIST, CRP, CMP ####[facility] Filsalwtlf8194[address] [place], [place] [address]Dr. Slick Broderick Potassium [Moles/Vol] 4.9 mmol/L Normal 3.5-5.1 [facility] Comment on above: Performed By: #### B NURSE ANESTHETIST, CRP, CMP ####[facility] Komteebdgh4097[address] [place], [place] [address]Dr. Slick Broderick Protein [Mass/Vol] 6.4 g/dL Normal 6.4-8.2 [facility] Comment on above: Performed By: #### B NURSE ANESTHETIST, CRP, CMP ####[facility] Swogtoanah8139 [place] [address]Dr. Slick Broderick Sodium [Moles/Vol] 136 mmol/L Normal 136-145 [facility] Comment on above: Performed By: #### B NURSE ANESTHETIST, CRP, CMP ####[facility] Dqikkwqmby2806 [place] [address]Dr. Slick Broderick Urea nitrogen [Mass/Vol] 32.0 mg/dL Critically high 7.0-18.0 [facility] Comment on above: Performed By: #### B NURSE ANESTHETIST, CRP, CMP ####[facility] Untulbchmn[address] [place] [address]Dr. Slick Broderick Urea nitrogen/Creatinine [Mass ratio] 16.3 mg/mg Normal [facility] Comment on above: Performed By: #### B NURSE ANESTHETIST, CRP, CMP ####[facility] Vynzycnagx6[address] [place], [place] [address]Dr. Slick Broderick TYPE AND SCREENon 12-12-2021 TYPE AND SCREEN Negative Normal [facility] Comment on above: Performed By: #### T NS ####[facility] Iisebdskjl29[address] [place], [place] [address]Dr. Slick Davie URINE MICROSCOPIC ONLYon BACTERIA SMALL Abnormal NONE SEEN [facility] Comment on above: Performed By: #### U MICRO, ERUR ####[facility] Qwbftvkgmg4114[address] [place], [place] [address]Dr. Slick Broderick Bacteria identified Cx Nom (U) INDICATED Normal [facility] Comment on above: Performed By: #### U MICRO, ERUR ####[facility] Xmuawdwfsx949[address] [place], [place] [address]Dr. Slick Broderick CAST NONE SEEN Normal NONE SEEN [facility] Comment on above: Performed By: #### U MICRO, ERUR ####[facility] Qrxwtmwqdu8056[address] [place], [place] [address]Dr. Slick Broderick Crystals LM Nom (Urine sed) NONE SEEN Normal NONE SEEN [facility] Comment on above: Performed By: #### U MICRO, ERUR ####[facility] Ylfvzhcooz8769 [place] [address]Dr. Slick Broderick Epithelial cells LM Ql (Urine sed) MANY Abnormal NONE SEEN /RARE [facility] Comment on above: Performed By: #### U MICRO, ERUR ####[facility] Veojblkyeo8486 [place] [address]Dr. Slick Broderick MUCOUS TRACE Abnormal NONE SEEN [facility] Comment on above: Performed By: #### U MICRO, ERUR ####[facility] Rkthrdytib4968[address] [place], [place] [address]Dr. Slick Broderick RBC 0-2 Normal 0-2 [facility] Comment on above: Performed By: #### U MICRO, ERUR ####[facility] Bzogbcmren996[address] [place], [place] [address]Dr. Slick Broderick WBC 2-5 Abnormal NONE SEEN [facility] Comment on above: Performed By: #### U MICRO, ERUR ####[facility] Vdrxjspmmt2957[address] [place], [place] [address]Dr. Slick Broderick VIT B12 AND FOLATEon 022 Cobalamin (Vitamin B12) [Mass/Vol] 753.0 pg/mL Normal 193.0-986.0 [facility] Comment on above: Performed By: #### B 12FOL, FETIBC ####[facility] Izvsruwaze5109 [place] [address]Dr. Slick Broderick FOLATE 20.20 ng/mL Normal 8.60-58.90 [facility] Comment on above: Performed By: #### B 12FOL, FETIBC ####[facility] Tbzixusobh6925 [place] [address]Dr. Slick Broderick XR CHEST 1 Von 12-12-2021 XR CHEST 1 V Normal [facility] XR KNEE LT 3Von 12-12-2021 XR KNEE LT 3V Normal [facility] PROF CHEM 8 (BAS METB)on Anion gap [Moles/Vol] 11.4 mmol/L Normal [facility] Comment on above: Performed By: #### B MP ####[facility] Tmrftydoqg1397[address] [place], [place] [address]Dr. Slick Broderick Calcium [Mass/Vol] 7.4 mg/dL Critically low 8.5-10.1 [facility] Comment on above: Performed By: #### B MP ####[facility] Htcqjyntyq3941 [place] [address]Dr. Slick Broderick Chloride [Moles/Vol] 109 mmol/L Critically high 98-107 [facility] Comment on above: Performed By: #### B MP ####[facility] Xaykbllfpc3573 [place] [address]Dr. Slick Broderick CO2 [Moles/Vol] 26.6 mmol/L Normal 21.0-32.0 [facility] Comment on above: Performed By: #### B MP ####[facility] Akfkeqanfx6[address] [place], [place] [address]Dr. Slick Broderick Creatinine [Mass/Vol] 1.16 mg/dL Critically high 0.55-1.02 [facility] Comment on above: Performed By: #### B MP ####[facility] Xdsdzdatrq074[address] [place], [place] [address]Dr. Slick Broderick EGFR-AF JAMAICAN 56 mL/min/1.73m2 Critically low >=60 [facility] Comment on above: Performed By: #### B MP ####[facility] Fhrjfshoro9[address] [place], [place] [address]Dr. Slick Broderick EGFR-NON AF JAMAICAN 46 mL/min/1.73m2 Critically low >=60 [facility] Comment on above: Performed By: #### B MP ####[facility] Tbeailgfzy6678 [place] [address]Dr. Slick Broderick Glucose [Mass/Vol] 128 mg/dL Critically high 74-106 [facility] Comment on above: Performed By: #### B MP ####[facility] Oxhqtyhwej1655[address] [place], [place] [address]Dr. Slick Broderick Potassium [Moles/Vol] 5.0 mmol/L Normal 3.5-5.1 [facility] Comment on above: Performed By: #### B MP ####[facility] Frdzeldivn5417 [place] [phone]. Slick Broderick Sodium [Moles/Vol] 142 mmol/L Normal 136-145 [facility] Comment on above: Performed By: #### B MP ####[facility] Otdhewwevz1748 [place] [phone]. Slick Broderick Urea nitrogen [Mass/Vol] 22.0 mg/dL Critically high 7.0-18.0 [facility] Comment on above: Performed By: #### B MP ####[facility] Jotopoeqma0290 [place] [phone]. Slick Broderick Urea nitrogen/Creatinine [Mass ratio] 19.0 mg/mg Normal [facility] Comment on above: Performed By: #### B MP ####[facility] Lgcmrtlxsq7147 [place] [address]Dr. Slick Broderick XR TIB_FIB LT 2Von 2 XR TIB_FIB LT 2V Normal [facility] CT CSPINE WO CONon 2 CT CSPINE WO CON Normal [facility] HEAD WO CON Normal [facility] Basic Metabolic Panelon 05-3 Calcium [Mass/Vol] 8.7 mg/dL Normal 8.2-10.2 [facility] Comment on above: Performed By: #### B MP #### [facility] [address] [place] [address] [place] Chloride [Moles/Vol] 100 mmol/L Normal 95-114 [facility] Comment on above: Performed By: #### B MP #### [facility] [address] [place] [address] [place] CO2 [Moles/Vol] 24.9 mmol/L Normal 22.0-30.0 [facility] [place] [facility] Comment on above: Performed By: #### B MP #### [facility] [address] [place] [id number] [place] Creatinine [Mass/Vol] 0.88 mg/dL Normal 0.44-1.03 [facility] Comment on above: Performed By: #### B MP #### [address] Creatinine Clr Calc Pharmacy 73.09 [facility] Comment on above: Result Comment: PERF ORMED BY: [place] [address] PATHOLOGIST PRESSER MACHINE GERA CASTELLANOS M.D. Performed By: #### B MP #### [address] Estimated GFR ( Neela > 60 [facility] Comment on above: Result Comment: GFR estimated reference range: According to KDOQI guidelines, <60 ml/min/1.73m2 is sufficient to diagnose a patient with chronic kidney disease. Performed By: #### B MP #### [address] Estimated GFR (Non- Am > 60 [facility] Comment on above: Performed By: #### B MP #### [address] Glucose [Mass/Vol] 98 mg/dL Normal 70-100 [facility] Comment on above: Result Comment: Bode Glucose Reference Range is dependent on time and content of last meal. Glucose of more than 200 mg/dL in a nonstressed, ambulatory subject supports the diagnosis of Diabetes Mellitus. ADA recommended reference range Performed By: #### B MP #### [address] Potassium [Moles/Vol] 4.3 mmol/L Normal 3.5-5.1 [facility] Comment on above: Performed By: #### B MP #### [place] [address] [place] Sodium [Moles/Vol] 133 mmol/L Low 136-146 [facility] Comment on above: Performed By: #### B MP #### [address] Urea nitrogen [Mass/Vol] 13 mg/dL Normal 9-23 [facility] Comment on above: Performed By: #### B MP #### [facility] [address] Basic Metabolic Panelon 05-3 -2021 Calcium [Mass/Vol] 8.6 mg/dL Normal 8.2-10.2 [facility] Comment on above: Performed By: #### C UU, ADDONUAPLUS, UCREA, YUN, UROSMO #### [facility] [address] Chloride [Moles/Vol] 104 mmol/L Normal 95-114 [facility] Comment on above: Performed By: #### C UU, ADDONUAPLUS, UCREA, YUN, UROSMO #### [address] CO2 [Moles/Vol] 24.5 mmol/L Normal 22.0-30.0 [facility] Comment on above: Performed By: #### C UU, ADDONUAPLUS, UCREA, YUN, UROSMO #### [address] Creatinine [Mass/Vol] 0.86 mg/dL Normal 0.44-1.03 [facility] Comment on above: Performed By: #### C UU, ADDONUAPLUS, UCREA, YUN, UROSMO #### [address] Creatinine Clr Calc Pharmacy 75.34 [facility] Comment on above: Result Comment: PERF ORMED BY: [place] [address] PATHOLOGIST PRESSER MACHINE GERA CASTELLANOS M.D. Performed By: #### C UU, ADDONUAPLUS, UCREA, YUN, UROSMO #### [address] Estimated GFR ( Neela > 60 Normal [facility] Comment on above: Result Comment: GFR estimated reference range: According to KDOQI guidelines, <60 ml/min/1.73m2 is sufficient to diagnose a patient with chronic kidney disease. Performed By: #### C UU, ADDONUAPLUS, UCREA, YUN, UROSMO #### [facility] [address] Estimated GFR (Non- Am > 60 Normal [facility] Comment on above: Performed By: #### C UU, ADDONUAPLUS, UCREA, YUN, UROSMO #### [facility] [address] Glucose [Mass/Vol] 89 mg/dL Normal 70-100 [facility] Comment on above: Result Comment: Bode Glucose Reference Range is dependent on time and content of last meal. Glucose of more than 200 mg/dL in a nonstressed, ambulatory subject supports the diagnosis of Diabetes Mellitus. ADA recommended reference range Performed By: #### C UU, ADDONUAPLUS, UCREA, YUN, UROSMO #### [facility] [address] Potassium [Moles/Vol] 4.3 mmol/L Normal 3.5-5.1 [facility] Comment on above: Performed By: #### C UU, ADDONUAPLUS, UCREA, YUN, UROSMO #### [facility] [address] Sodium [Moles/Vol] 136 mmol/L Normal 136-146 [facility] Comment on above: Performed By: #### C UU, ADDONUAPLUS, UCREA, YUN, UROSMO #### [facility] [address] [place] [address] [place] Urea nitrogen [Mass/Vol] 15 mg/dL Normal 9-23 [facility] Comment on above: Performed By: #### C UU, ADDONUAPLUS, UCREA, YUN, UROSMO #### [facility] [address] Complete Blood Count Auto Di ffon 11-08-2021 Basophils (Bld) [#/Vol] 0.0 10*3/uL Normal 0.0-0.2 [facility] Comment on above: Result Comment: PERF ORMED BY: [facility] [address] [place] [address] PATHOLOGIST PRESSER MACHINE GERA CASTELLANOS M.D. Performed By: #### C UU, ADDONUAPLUS, UCREA, YUN, UROSMO #### [address] Basophils/100 WBC (Bld) 0.6 % Normal . [facility] Comment on above: Performed By: #### C UU, ADDONUAPLUS, UCREA, YUN, UROSMO #### [address] Eosinophils (Bld) [#/Vol] 0.2 10*3/uL Normal 0.0-0.45 [facility] Comment on above: Performed By: #### C UU, ADDONUAPLUS, UCREA, YUN, UROSMO #### [address] Eosinophils/100 WBC (Bld) 2.1 % Normal . [facility] Comment on above: Performed By: #### C UU, ADDONUAPLUS, UCREA, YUN, UROSMO #### [address] Erythrocyte distribution width (RBC) [Ratio] 15.3 % Normal 11.9-15.3 [facility] Comment on above: Performed By: #### C UU, ADDONUAPLUS, UCREA, YUN, UROSMO #### [address] Hematocrit (Bld) [Volume fraction] 24.0 % Low 34.0-46.4 [facility] Comment on above: Performed By: #### C UU, ADDONUAPLUS, UCREA, YUN, UROSMO #### [address] Hemoglobin (Bld) [Mass/Vol] 8.1 g/dL Low 11.8-15.4 [facility] Comment on above: Performed By: #### C UU, ADDONUAPLUS, UCREA, YUN, UROSMO #### [address] [place] [address] [place] Lymphocytes (Bld) [#/Vol] 0.8 10*3/uL Low 1.00-4.8 [facility] Comment on above: Performed By: #### C UU, ADDONUAPLUS, UCREA, YUN, UROSMO #### [address] Lymphocytes/100 WBC (Bld) 9.8 % Normal . [facility] Comment on above: Performed By: #### C UU, ADDONUAPLUS, UCREA, YUN, UROSMO #### [address] MCH (RBC) [Entitic mass] 33.8 pg Normal 24.7-34.3 [facility] Comment on above: Performed By: #### C UU, ADDONUAPLUS, UCREA, YUN, UROSMO #### [address] MCV (RBC) [Entitic vol] 99.6 fL Normal 80-100 [facility] Comment on above: Performed By: #### C UU, ADDONUAPLUS, UCREA, YUN, UROSMO #### [address] Mean Corpuscular HGB Conc 33.9 g/dL Normal 32.0-35.0 [facility] Comment on above: Performed By: #### C UU, ADDONUAPLUS, UCREA, YUN, UROSMO #### [address] Monocytes (Bld) [#/Vol] 0.8 10*3/uL Normal 0.0-0.8 [facility] Comment on above: Performed By: #### C UU, ADDONUAPLUS, UCREA, YUN, UROSMO #### [address] Monocytes/100 WBC (Bld) 10.7 % Normal . [facility] Comment on above: Performed By: #### C UU, ADDONUAPLUS, UCREA, YUN, UROSMO #### [facility] [address] [place] [address] [place] Neutrophils (Bld) [#/Vol] 6.1 10*3/uL Normal 1.8-7.7 [facility] Comment on above: Performed By: #### C UU, ADDONUAPLUS, UCREA, YUN, UROSMO #### [facility] [address] [place] [address] [place] Neutrophils/100 WBC (Bld) 76.8 % Normal . [facility] Comment on above: Performed By: #### C UU, ADDONUAPLUS, UCREA, YUN, UROSMO #### [facility] [address] Nucleated RBC/100 WBC (Bld) [Ratio] 0.1 % Normal 0-0.5 [facility] Comment on above: Performed By: #### C UU, ADDONUAPLUS, UCREA, YUN, UROSMO #### [facility] [address] Platelet mean volume (Bld) [Entitic vol] 7.1 fL Normal 6.3-10.7 [facility] Comment on above: Performed By: #### C UU, ADDONUAPLUS, UCREA, YUN, UROSMO #### [facility] [address] [place] [address] [place] Platelets (Bld) [#/Vol] 213 10*3/uL Normal 150-450 [facility] Comment on above: Performed By: #### C UU, ADDONUAPLUS, UCREA, YUN, UROSMO #### [facility] [address] [place] [address] [place] RBC (Bld) [#/Vol] 2.41 10*6/uL Low 3.60-5.00 [facility] Comment on above: Performed By: #### C UU, ADDONUAPLUS, UCREA, YUN, UROSMO #### [facility] [address] [place] [address] [place] WBC (Bld) [#/Vol] 7.9 10*3/uL Normal 4.5-11.0 [facility] Comment on above: Performed By: #### C UU, ADDONUAPLUS, UCREA, YUN, UROSMO #### [facility] [address] Basic Metabolic Panelon 05-2 Calcium [Mass/Vol] 8.5 mg/dL Normal 8.2-10.2 [facility] Comment on above: Performed By: #### C UU, ADDONUAPLUS, UCREA, YUN, UROSMO #### [facility] [address] Chloride [Moles/Vol] 103 mmol/L Normal 95-114 [facility] Comment on above: Performed By: #### C UU, ADDONUAPLUS, UCREA, YUN, UROSMO #### [address] CO2 [Moles/Vol] 23.6 mmol/L Normal 22.0-30.0 [facility] Comment on above: Performed By: #### C UU, ADDONUAPLUS, UCREA, YUN, UROSMO #### [address] Creatinine [Mass/Vol] 0.88 mg/dL Normal 0.44-1.03 [facility] Comment on above: Performed By: #### C UU, ADDONUAPLUS, UCREA, YUN, UROSMO #### [facility] [address] Creatinine Clr Calc Pharmacy 73.42 Normal [facility] Comment on above: Result Comment: PERF ORMED BY: [place] [address] PATHOLOGIST PRESSER MACHINE GERA CASTELLANOS M.D. Performed By: #### C UU, ADDONUAPLUS, UCREA, YUN, UROSMO #### [address] Estimated GFR ( Neela > 60 Normal [facility] Comment on above: Result Comment: GFR estimated reference range: According to KDOQI guidelines, <60 ml/min/1.73m2 is sufficient to diagnose a patient with chronic kidney disease. Performed By: #### C UU, ADDONUAPLUS, UCREA, YUN, UROSMO #### [facility] [address] [place] [address] [place] Estimated GFR (Non- Am > 60 Normal [facility] Comment on above: Performed By: #### C UU, ADDONUAPLUS, UCREA, YUN, UROSMO #### [facility] [address] Glucose [Mass/Vol] 98 mg/dL Normal 70-100 [facility] Comment on above: Result Comment: [facility] Glucose Reference Range is dependent on time and content of last meal. Glucose of more than 200 mg/dL in a nonstressed, ambulatory subject supports the diagnosis of Diabetes Mellitus. ADA recommended reference range Performed By: #### C UU, ADDONUAPLUS, UCREA, YUN, UROSMO #### [facility] [address] Potassium [Moles/Vol] 4.2 mmol/L Normal 3.5-5.1 [facility] Comment on above: Performed By: #### C UU, ADDONUAPLUS, UCREA, YUN, UROSMO #### [facility] [address] [place] [address] [place] Sodium [Moles/Vol] 134 mmol/L Low 136-146 [facility] Comment on above: Performed By: #### C UU, ADDONUAPLUS, UCREA, YUN, UROSMO #### [facility] [address] [place] [address] [place] Urea nitrogen [Mass/Vol] 18 mg/dL Normal 9-23 [facility] Comment on above: Performed By: #### C UU, ADDONUAPLUS, UCREA, YUN, UROSMO #### [facility] [address] Complete Blood Count Auto Di ffon 11-07-2021 Basophils (Bld) [#/Vol] 0.1 10*3/uL Normal 0.0-0.2 [facility] Comment on above: Performed By: #### C UU, ADDONUAPLUS, UCREA, YUN, UROSMO #### [facility] [address] Basophils/100 WBC (Bld) 0.6 % Normal . [facility] Comment on above: Performed By: #### C UU, ADDONUAPLUS, UCREA, YUN, UROSMO #### [facility] [address] Eosinophils (Bld) [#/Vol] 0.2 10*3/uL Normal 0.0-0.45 [facility] Comment on above: Performed By: #### C UU, ADDONUAPLUS, UCREA, YUN, UROSMO #### [facility] [address] Eosinophils/100 WBC (Bld) 1.9 % Normal . [facility] Comment on above: Performed By: #### C UU, ADDONUAPLUS, UCREA, YUN, UROSMO #### [address] Erythrocyte distribution width (RBC) [Ratio] 15.6 % High 11.9-15.3 [facility] Comment on above: Performed By: #### C UU, ADDONUAPLUS, UCREA, YUN, UROSMO #### [address] Hematocrit (Bld) [Volume fraction] 21.8 % Low 34.0-46.4 [facility] Comment on above: Performed By: #### C UU, ADDONUAPLUS, UCREA, YUN, UROSMO #### [address] Hemoglobin (Bld) [Mass/Vol] 7.4 g/dL Low 11.8-15.4 [facility] Comment on above: Performed By: #### C UU, ADDONUAPLUS, UCREA, YUN, UROSMO #### [address] Lymphocytes (Bld) [#/Vol] 0.8 10*3/uL Low 1.00-4.8 [facility] Comment on above: Performed By: #### C UU, ADDONUAPLUS, UCREA, YUN, UROSMO #### [address] Lymphocytes/100 WBC (Bld) 9.2 % Normal . [facility] Comment on above: Performed By: #### C UU, ADDONUAPLUS, UCREA, YUN, UROSMO #### [address] MCH (RBC) [Entitic mass] 33.8 pg Normal 24.7-34.3 [facility] Comment on above: Performed By: #### C UU, ADDONUAPLUS, UCREA, YUN, UROSMO #### [address] MCV (RBC) [Entitic vol] 100.2 fL High 80-100 [facility] Comment on above: Performed By: #### C UU, ADDONUAPLUS, UCREA, YUN, UROSMO #### [address] Mean Corpuscular HGB Conc 33.8 g/dL Normal 32.0-35.0 [facility] Comment on above: Performed By: #### C UU, ADDONUAPLUS, UCREA, YUN, UROSMO #### [address] Monocytes (Bld) [#/Vol] 0.9 10*3/uL High 0.0-0.8 [facility] Comment on above: Performed By: #### C UU, ADDONUAPLUS, UCREA, YUN, UROSMO #### [place] [address] [place] Monocytes/100 WBC (Bld) 9.5 % Normal . [facility] Comment on above: Performed By: #### C UU, ADDONUAPLUS, UCREA, YUN, UROSMO #### [facility] [address] [place] [address] [place] Neutrophils (Bld) [#/Vol] 7.2 10*3/uL Normal 1.8-7.7 [facility] Comment on above: Performed By: #### C UU, ADDONUAPLUS, UCREA, YUN, UROSMO #### [facility] [address] Neutrophils/100 WBC (Bld) 78.8 % Normal . [facility] Comment on above: Performed By: #### C UU, ADDONUAPLUS, UCREA, YUN, UROSMO #### [facility] [address] [place] [address] [place] Nucleated RBC/100 WBC (Bld) [Ratio] 0.2 % Normal 0-0.5 [facility] Comment on above: Performed By: #### C UU, ADDONUAPLUS, UCREA, YUN, UROSMO #### [facility] [address] Platelet mean volume (Bld) [Entitic vol] 7.1 fL Normal 6.3-10.7 [facility] Comment on above: Performed By: #### C UU, ADDONUAPLUS, UCREA, YUN, UROSMO #### [facility] [address] [place] [address] [place] Platelets (Bld) [#/Vol] 212 10*3/uL Normal 150-450 [facility] Comment on above: Performed By: #### C UU, ADDONUAPLUS, UCREA, YUN, UROSMO #### [facility] [address] [place] [address] [place] RBC (Bld) [#/Vol] 2.17 10*6/uL Low 3.60-5.00 [facility] Comment on above: Performed By: #### C UU, ADDONUAPLUS, UCREA, YUN, UROSMO #### [address] WBC (Bld) [#/Vol] 9.1 10*3/uL Normal 4.5-11.0 [facility] Comment on above: Performed By: #### C UU, ADDONUAPLUS, UCREA, YUN, UROSMO #### [address] Haptoglobinon 11-07-2021 Haptoglobin 245 mg/dL Normal 37-246 [facility] Comment on above: Result Comment: PERF ORMED BY: [place] [address] PATHOLOGIST PRESSER MACHINE GERA CASTELLANOS M.D. Performed By: #### C UU, ADDONUAPLUS, UCREA, YUN, UROSMO #### [address] Hemoglobin and Hematocriton 11-07-2021 Hematocrit (Bld) [Volume fraction] 21.8 % Low 34.0-46.4 [facility] Comment on above: Result Comment: PERF ORMED BY: [place] [address] PATHOLOGIST PRESSER MACHINE GERA CASTELLANOS M.D. Performed By: #### C UU, ADDONUAPLUS, UCREA, YUN, UROSMO #### [address] Hemoglobin (Bld) [Mass/Vol] 7.3 g/dL Low 11.8-15.4 [facility] Comment on above: Performed By: #### C UU, ADDONUAPLUS, UCREA, YUN, UROSMO #### [address] Iron and TIBC Profileon 10-11 % Iron Saturation 14.0 % Low 20-50 [facility] Comment on above: Performed By: #### C UU, ADDONUAPLUS, UCREA, YUN, UROSMO #### [facility] [address] Iron [Mass/Vol] 44 ug/dL Normal 40-150 [facility] Comment on above: Performed By: #### C UU, ADDONUAPLUS, UCREA, YUN, UROSMO #### [facility] [address] Total Iron Binding Capacity 295 ug/dL Normal 255-450 [facility] Comment on above: Performed By: #### C UU, ADDONUAPLUS, UCREA, YUN, UROSMO #### [facility] [address] Transferrin [Mass/Vol] 211 mg/dL Normal 180-380 [facility] Comment on above: Result Comment: PERF ORMED BY: [place] [address] PATHOLOGIST PRESSER MACHINE GERA CASTELLANOS M.D. Performed By: #### C UU, ADDONUAPLUS, UCREA, YUN, UROSMO #### [address] Kyler 11-07-2021 L - -------- Specimen: [id number] Received: 11/07/21 Status: BEL Gifty Num: [id number] Spec Type: Impression Subm Dr: Aissatou Sotelo MD Tissues: PATHBBK Procedures: PATHREVIEW -------- Patient Age/Sex Location Account Attending Physician -------- Azam Lisa 71/F [id number] Javi Pearson MD -------- SPEC NUM: [id number] RECD: 11/07/21 STATUS: BEL BERGMAN NUM: [id number] SYLVIA: 11/07/21 DR: Aissatou Sotelo MD ENTERED: 11/07/[address]: Ave Mehta MD SPEC TYPE: Impression DEPT: AR ORDERED: PATHREVIEW ORDERED: PATHREVIEW Pathologist Review Moderate macrocytic normochromic anemia with mild anisocytosis. Rare ovalocytes and basophilic stippling are noted. Liver disease, vitamin B-12/folate deficiency, renal insufficiency and drug effect should be considered. Mild neutrophilia with occasional toxic granulation, favor reactive etiology. [id number] -------- -------- Specimen: [id number] Received: 11/07/21-1711 Status: BEL [place]man Num: [id number] Spec Type: Impression Subm Dr: Aissatou Sotelo MD Tissues: PATHBBK Procedures: PATHREVIEW -------- Patient: Linda Nascimento [id number] (Continued) -------- Signed (signature on file) Gera Castellanos MD 11/09/21 1158 Normal [facility] Lactate Dehydrogenaseon 11-07-2021 LDH Lactate Dehydrogenase 184 U/L Normal 45-190 [facility] Comment on above: Performed By: #### C SHELBIE, BRUNILDA, BARBARA, YUN, UROSMO #### [facility] [address] Pathologist Slide Reviewon 0 11-07-2021 Pathologist Slide Review Ordered Path Review Normal [facility] Comment on above: Result Comment: PERF ORMED BY: [facility] [address] [place] [address] PATHOLOGIST PRESSER MACHINE GERA CASTELLANOS M.D. Performed By: #### C UU, ADDONUAPLUS, UCREA, YUN, UROSMO #### [address] Reticulocyte Counton 022 Reticulocyte Number 0.062 10*6/uL Normal 0.024-0.[address] [facility] Comment on above: Result Comment: PERF ORMED BY: [place] [address] PATHOLOGIST PRESSER MACHINE GERA CASTELLANOS M.D. Performed By: #### C UU, ADDONUAPLUS, UCREA, YUN, UROSMO #### [address] Reticulocyte Percent 2.8 % High 0.5-1.5 [facility] Comment on above: Performed By: #### C UU, ADDONUAPLUS, UCREA, YUN, UROSMO #### [address] Stool Occult Blood (Immuno)o n 11-07-2021 Stool Occult Blood (Immuno) Occult Blood (Immuno) Positive for Occult Blood by Immunochemical Methodology Reference range = Negative PERFORMED BY: [place] [address] PATHOLOGIST PRESSER MACHINE GERA CASTELALNOS M.D. [facility] Comment on above: Performed By: #### C UU, ADDONUAPLUS, UCREA, YUN, UROSMO #### [address] Basic Metabolic Panelon 05- Calcium [Mass/Vol] 8.8 mg/dL Normal 8.2-10.2 [facility] Comment on above: Performed By: #### C UU, ADDONUAPLUS, UCREA, YUN, UROSMO #### [facility] [address] Chloride [Moles/Vol] 103 mmol/L Normal 95-114 [facility] Comment on above: Performed By: #### C UU, ADDONUAPLUS, UCREA, YUN, UROSMO #### [facility] [address] CO2 [Moles/Vol] 23.7 mmol/L Normal 22.0-30.0 [facility] Comment on above: Performed By: #### C UU, ADDONUAPLUS, UCREA, YUN, UROSMO #### [facility] [address] Creatinine [Mass/Vol] 0.94 mg/dL Normal 0.44-1.03 [facility] Comment on above: Performed By: #### C UU, ADDONUAPLUS, UCREA, YUN, UROSMO #### [address] Creatinine Clr Calc Pharmacy 67.79 [facility] Comment on above: Result Comment: PERF ORMED BY: [place] [address] PATHOLOGIST PRESSER MACHINE GERA CASTELLANOS M.D. Performed By: #### C UU, ADDONUAPLUS, UCREA, YUN, UROSMO #### [facility] [address] [place] [address] Estimated GFR ( Neela > 60 [facility] Comment on above: Result Comment: GFR estimated reference range: According to KDOQI guidelines, <60 ml/min/1.73m2 is sufficient to diagnose a patient with chronic kidney disease. Performed By: #### C UU, ADDONUAPLUS, UCREA, YUN, UROSMO #### [address] Estimated GFR (Non- Am 58 [facility] Comment on above: Performed By: #### C UU, ADDONUAPLUS, UCREA, YUN, UROSMO #### [facility] [address] Glucose [Mass/Vol] 107 mg/dL High 70-100 [facility] Comment on above: Result Comment: [facility] Glucose Reference Range is dependent on time and content of last meal. Glucose of more than 200 mg/dL in a nonstressed, ambulatory subject supports the diagnosis of Diabetes Mellitus. ADA recommended reference range Performed By: #### C UU, ADDONUAPLUS, UCREA, YUN, UROSMO #### [facility] [address] Potassium [Moles/Vol] 4.7 mmol/L Normal 3.5-5.1 [facility] Comment on above: Performed By: #### C UU, ADDONUAPLUS, UCREA, YUN, UROSMO #### [facility] [address] Sodium [Moles/Vol] 133 mmol/L Low 136-146 [facility] Comment on above: Performed By: #### C UU, ADDONUAPLUS, UCREA, YUN, UROSMO #### [address] Urea nitrogen [Mass/Vol] 23 mg/dL Normal 9-23 [facility] Comment on above: Performed By: #### C UU, ADDONUAPLUS, UCREA, YUN, UROSMO #### [address] Hemoglobin and Hematocriton 11-06-2021 Hematocrit (Bld) [Volume fraction] 23.7 % Low 34.0-46.4 [facility] Comment on above: Result Comment: PERF ORMED BY: [place] [address] PATHOLOGIST PRESSER MACHINE GERA CASTELLANOS M.D. Performed By: #### C UU, ADDONUAPLUS, UCREA, YUN, UROSMO #### [place] [address] [place] Hemoglobin (Bld) [Mass/Vol] 8.1 g/dL Low 11.8-15.4 [facility] Comment on above: Performed By: #### C UU, ADDONUAPLUS, UCREA, YUN, UROSMO #### [place] [id number] [facility] Hematocrit (Bld) [Volume fraction] 22.3 % Low 34.0-46.4 [facility] Comment on above: Result Comment: PERF ORMED BY: [place] [address] PATHOLOGIST PRESSER MACHINE GERA CASTELLANOS M.D. Performed By: #### C UU, ADDONUAPLUS, UCREA, YUN, UROSMO #### [place] [id number] [facility] Hemoglobin (Bld) [Mass/Vol] 7.7 g/dL Low 11.8-15.4 [facility] Comment on above: Performed By: #### C UU, ADDONUAPLUS, UCREA, YUN, UROSMO #### [place] [address] [place] Osmolality, Urineon 11-07-19 Osmolality, Urine 357 mosm Normal 250-900 [facility] Comment on above: Result Comment: PERF ORMED BY: [place] [address] PATHOLOGIST PRESSER MACHINE GERA CASTELLANOS M.D. Performed By: #### C UU, ADDONUAPLUS, UCREA, YUN, UROSMO #### [place] [id number] [place] Sodium, Urineon 11-06-2021 Sodium (U) [Moles/Vol] 15.0 mmol/L Normal [facility] Comment on above: Result Comment: No r eference range established PERFORMED BY: [place] [address] PATHOLOGIST PRESSER MACHINE GERA CASTELLANOS M.D. Performed By: #### C UU, ADDONUAPLUS, UCREA, YUN, UROSMO #### [facility] [address] Basic Metabolic Panelon 05-2 Calcium [Mass/Vol] 8.4 mg/dL Normal 8.2-10.2 [facility] Comment on above: Performed By: #### C UU, ADDONUAPLUS, UCREA, YUN, UROSMO #### [facility] [address] Chloride [Moles/Vol] 99 mmol/L Normal 95-114 [facility] Comment on above: Performed By: #### C UU, ADDONUAPLUS, UCREA, YUN, UROSMO #### [address] CO2 [Moles/Vol] 22.4 mmol/L Normal 22.0-30.0 [facility] Comment on above: Performed By: #### C UU, ADDONUAPLUS, UCREA, YUN, UROSMO #### [address] Creatinine [Mass/Vol] 1.29 mg/dL High 0.44-1.03 [facility] Comment on above: Performed By: #### C UU, ADDONUAPLUS, UCREA, YUN, UROSMO #### [address] Creatinine Clr Calc Pharmacy 48.68 [facility] Comment on above: Result Comment: PERF ORMED BY: [place] [address] PATHOLOGIST PRESSER MACHINE GERA CASTELLANOS M.D. Performed By: #### C UU, ADDONUAPLUS, UCREA, YUN, UROSMO #### [address] Estimated GFR ( Neela 49 Normal [facility] Comment on above: Result Comment: GFR estimated reference range: According to KDOQI guidelines, <60 ml/min/1.73m2 is sufficient to diagnose a patient with chronic kidney disease. Performed By: #### C UU, ADDONUAPLUS, UCREA, YUN, UROSMO #### [facility] [address] Estimated GFR (Non- Am 41 Normal [facility] Comment on above: Performed By: #### C UU, ADDONUAPLUS, UCREA, YUN, UROSMO #### [facility] [address] Glucose [Mass/Vol] 124 mg/dL High 70-100 [facility] Comment on above: Result Comment: [facility] Glucose Reference Range is dependent on time and content of last meal. Glucose of more than 200 mg/dL in a nonstressed, ambulatory subject supports the diagnosis of Diabetes Mellitus. ADA recommended reference range Performed By: #### C UU, ADDONUAPLUS, UCREA, YNU, UROSMO #### [facility] [address] Potassium [Moles/Vol] 5.1 mmol/L Normal 3.5-5.1 [facility] Comment on above: Performed By: #### C UU, ADDONUAPLUS, UCREA, YUN, UROSMO #### [facility] [address] Sodium [Moles/Vol] 129 mmol/L Low 136-146 [facility] Comment on above: Performed By: #### C UU, ADDONUAPLUS, UCREA, YUN, UROSMO #### [facility] [address] Urea nitrogen [Mass/Vol] 27 mg/dL High 9-23 [facility] Comment on above: Performed By: #### C UU, ADDONUAPLUS, UCREA, YUN, UROSMO #### [facility] [address] Complete Blood Count Auto Di ffon 11-05-2021 Basophils (Bld) [#/Vol] 0.0 10*3/uL Normal 0.0-0.2 [facility] Comment on above: Result Comment: PERF ORMED BY: [place] [address] PATHOLOGIST PRESSER MACHINE GERA CASTELLANOS M.D. Performed By: #### C UU, ADDONUAPLUS, UCREA, YUN, UROSMO #### [address] Basophils/100 WBC (Bld) 0.2 % Normal . [facility] Comment on above: Performed By: #### C UU, ADDONUAPLUS, UCREA, YUN, UROSMO #### [address] Eosinophils (Bld) [#/Vol] 0.1 10*3/uL Normal 0.0-0.45 [facility] Comment on above: Performed By: #### C UU, ADDONUAPLUS, UCREA, YUN, UROSMO #### [address] Eosinophils/100 WBC (Bld) 0.9 % Normal . [facility] Comment on above: Performed By: #### C UU, ADDONUAPLUS, UCREA, YUN, UROSMO #### [address] Erythrocyte distribution width (RBC) [Ratio] 14.9 % Normal 11.9-15.3 [facility] Comment on above: Performed By: #### C UU, ADDONUAPLUS, UCREA, YUN, UROSMO #### [address] Hematocrit (Bld) [Volume fraction] 21.0 % Low 34.0-46.4 [facility] Comment on above: Performed By: #### C UU, ADDONUAPLUS, UCREA, YUN, UROSMO #### [address] Hemoglobin (Bld) [Mass/Vol] 6.9 g/dL Low 11.8-15.4 [facility] Comment on above: Performed By: #### C UU, ADDONUAPLUS, UCREA, YUN, UROSMO #### [facility] [address] Lymphocytes (Bld) [#/Vol] 0.5 10*3/uL Low 1.00-4.8 [facility] Comment on above: Performed By: #### C UU, ADDONUAPLUS, UCREA, YUN, UROSMO #### [facility] [address] Lymphocytes/100 WBC (Bld) 5.3 % Normal . [facility] Comment on above: Performed By: #### C UU, ADDONUAPLUS, UCREA, YUN, UROSMO #### [address] MCH (RBC) [Entitic mass] 33.1 pg Normal 24.7-34.3 [facility] Comment on above: Performed By: #### C UU, ADDONUAPLUS, UCREA, YUN, UROSMO #### [address] MCV (RBC) [Entitic vol] 100.2 fL High 80-100 [facility] Comment on above: Performed By: #### C UU, ADDONUAPLUS, UCREA, YUN, UROSMO #### [address] Mean Corpuscular HGB Conc 33.1 g/dL Normal 32.0-35.0 [facility] Comment on above: Performed By: #### C UU, ADDONUAPLUS, UCREA, YNU, UROSMO #### [address] Monocytes (Bld) [#/Vol] 0.8 10*3/uL Normal 0.0-0.8 [facility] Comment on above: Performed By: #### C UU, ADDONUAPLUS, UCREA, YUN, UROSMO #### [address] Monocytes/100 WBC (Bld) 8.6 % Normal . [facility] Comment on above: Performed By: #### C UU, ADDONUAPLUS, UCREA, YUN, UROSMO #### [facility] [address] [place] [address] [place] Neutrophils (Bld) [#/Vol] 7.6 10*3/uL Normal 1.8-7.7 [facility] Comment on above: Performed By: #### C UU, ADDONUAPLUS, UCREA, YUN, UROSMO #### [facility] [address] Neutrophils/100 WBC (Bld) 85.0 % Normal . [facility] Comment on above: Performed By: #### C UU, ADDONUAPLUS, UCREA, YUN, UROSMO #### [facility] [address] Nucleated RBC/100 WBC (Bld) [Ratio] 0.0 % Normal 0-0.5 [facility] Comment on above: Performed By: #### C UU, ADDONUAPLUS, UCREA, YUN, UROSMO #### [facility] [address] Platelet mean volume (Bld) [Entitic vol] 7.3 fL Normal 6.3-10.7 [facility] Comment on above: Performed By: #### C UU, ADDONUAPLUS, UCREA, YUN, UROSMO #### [facility] [address] [place] [address] [place] Platelets (Bld) [#/Vol] 197 10*3/uL Normal 150-450 [facility] Comment on above: Performed By: #### C UU, ADDONUAPLUS, UCREA, YUN, UROSMO #### [facility] [address] [place] [address] [place] RBC (Bld) [#/Vol] 2.10 10*6/uL Low 3.60-5.00 [facility] Comment on above: Performed By: #### C UU, ADDONUAPLUS, UCREA, YUN, UROSMO #### [facility] [address] WBC (Bld) [#/Vol] 8.9 10*3/uL Normal 4.5-11.0 [facility] Comment on above: Performed By: #### C UU, ADDONUAPLUS, UCREA, YUN, UROSMO #### [facility] [address] Creatinine, Urine (Random)on 11-05-2021 Creatinine, Urine (Random) 47.6 mg/dL Normal [facility] Comment on above: Result Comment: No r eference range established Performed By: #### C UU, ADDONUAPLUS, UCREA, YUN, UROSMO #### [address] Dipstick and Microscopicon 0 11-05-2021 Appearance (U) Clear Normal Clear [facility] Comment on above: Order Comment: Name Collection Type:: Voided Performed By: #### C UU, ADDONUAPLUS, UCREA, YUN, UROSMO #### [facility] [address] [place] [address] [place] Bacteria,Urine None Seen Normal None Seen [facility] Comment on above: Order Comment: Name Collection Type:: Voided Performed By: #### C UU, ADDONUAPLUS, UCREA, YUN, UROSMO #### [facility] [address] [place] [address] Bilirubin,Urine Negative Normal Negative [facility] Comment on above: Order Comment: Name Collection Type:: Voided Performed By: #### C UU, ADDONUAPLUS, UCREA, YUN, UROSMO #### [facility] [address] [place] [address] [place] Color (U) Yellow Normal Yellow [facility] Comment on above: Order Comment: Name Collection Type:: Voided Performed By: #### C UU, ADDONUAPLUS, UCREA, YUN, UROSMO #### [facility] [address] [place] [address] [place] Glucose Ql (U) Normal Normal Normal [facility] Comment on above: Order Comment: Name Collection Type:: Voided Performed By: #### C UU, ADDONUAPLUS, UCREA, YUN, UROSMO #### [facility] [address] Hyaline Casts,Urine 0-8 Normal 0-8 [facility] Comment on above: Order Comment: Name Collection Type:: Voided Result Comment: PERF ORMED BY: [place] [address] PATHOLOGIST PRESSER MACHINE GERA CASTELLANOS M.D. Performed By: #### C UU, ADDONUAPLUS, UCREA, YUN, UROSMO #### [facility] [address] [place] [address] Ketones Ql (U) Negative Normal Negative [facility] Comment on above: Order Comment: Name Collection Type:: Voided Performed By: #### C UU, ADDONUAPLUS, UCREA, YUN, UROSMO #### [facility] [address] [place] [address] Leukocyte esterase Test strip Ql (U) 1+ High Negative [facility] Comment on above: Order Comment: Name Collection Type:: Voided Performed By: #### C UU, ADDONUAPLUS, UCREA, YUN, UROSMO #### [facility] [address] [place] [address] Nitrite,Urine Negative Normal Negative [facility] Comment on above: Order Comment: Name Collection Type:: Voided Performed By: #### C UU, ADDONUAPLUS, UCREA, YUN, UROSMO #### [facility] [address] [place] [address] [place] Occult Blood,Urine Negative Normal Negative [facility] Comment on above: Order Comment: Name Collection Type:: Voided Result Comment: PERF ORMED BY: [place] [address] PATHOLOGIST PRESSER MACHINE GERA CASTELLANOS M.D. Performed By: #### C UU, ADDONUAPLUS, UCREA, YUN, UROSMO #### [address] pH (U) 5.5 [pH] Normal 5.0-9.0 [facility] Comment on above: Order Comment: Name Collection Type:: Voided Performed By: #### C UU, ADDONUAPLUS, UCREA, YUN, UROSMO #### [address] Protein,Urine Negative Normal Negative [facility] Comment on above: Order Comment: Name Collection Type:: Voided Performed By: #### C UU, ADDONUAPLUS, UCREA, YUN, UROSMO #### [address] RBC,Urine 1-2 Normal 0-4 [facility] Comment on above: Order Comment: Name Collection Type:: Voided Performed By: #### C UU, ADDONUAPLUS, UCREA, YUN, UROSMO #### [address] Specificy Devol,Urine 1.008 Normal 1.001-1.030 [facility] Comment on above: Order Comment: Name Collection Type:: Voided Performed By: #### C UU, ADDONUAPLUS, UCREA, YUN, UROSMO #### [address] Squamous Epithelial Cell,Urine 0-1 Normal 0-2 [facility] Comment on above: Order Comment: Name Collection Type:: Voided Performed By: #### C UU, ADDONUAPLUS, UCREA, YUN, UROSMO #### [address] Urobilinogen,Urine Normal Normal Normal [facility] Comment on above: Order Comment: Name Collection Type:: Voided Performed By: #### C UU, ADDONUAPLUS, UCREA, YUN, UROSMO #### [address] WBC,Urine 5-9 High 0-4 [facility] Comment on above: Order Comment: Name Collection Type:: Voided Performed By: #### C UU, ADDONUAPLUS, UCREA, YUN, UROSMO #### [facility] [address] [place] [address] Hemoglobin and Hematocriton 11-05-2021 Hematocrit (Bld) [Volume fraction] 22.8 % Low 34.0-46.4 [facility] Comment on above: Result Comment: PERF ORMED BY: [place] [address] PATHOLOGIST PRESSER MACHINE GERA CASTELLANOS M.D. Performed By: #### C UU, ADDONUAPLUS, UCREA, YUN, UROSMO #### [address] Hemoglobin (Bld) [Mass/Vol] 7.8 g/dL Low 11.8-15.4 [facility] Comment on above: Performed By: #### C UU, ADDONUAPLUS, UCREA, YUN, UROSMO #### [address] Hematocrit (Bld) [Volume fraction] 25.3 % Low 34.0-46.4 [facility] Comment on above: Result Comment: PERF ORMED BY: [place] [address] PATHOLOGIST PRESSER MACHINE GERA CASTELLANOS M.D. Performed By: #### C UU, ADDONUAPLUS, UCREA, YUN, UROSMO #### [address] Hemoglobin (Bld) [Mass/Vol] 8.5 g/dL Low 11.8-15.4 [facility] Comment on above: Performed By: #### C UU, ADDONUAPLUS, UCREA, YUN, UROSMO #### [place] [address] [place] Osmolality, Urineon 11-06-19 22 Osmolality, Urine 207 mosm Low 250-900 [facility] Comment on above: Result Comment: PERF ORMED BY: [place] [address] PATHOLOGIST PRESSER MACHINE GERA CASTELLANOS M.D. Performed By: #### C UU, ADDONUAPLUS, UCREA, YUN, UROSMO #### [facility] [address] [place] [id number] [place] Sodiumon 11-05-2021 Sodium [Moles/Vol] 131 mmol/L Low 136-146 [facility] Comment on above: Result Comment: PERF ORMED BY: [place] [address] PATHOLOGIST PRESSER MACHINE GERA CASTELLANOS M.D. Performed By: #### C UU, ADDONUAPLUS, UCREA, YUN, UROSMO #### [facility] [address] [place] [address] [place] Sodium [Moles/Vol] 131 mmol/L Low 136-146 [facility] Comment on above: Result Comment: PERF ORMED BY: [place] [address] PATHOLOGIST PRESSER MACHINE GERA CASTELLANOS M.D. Performed By: #### C UU, ADDONUAPLUS, UCREA, YUN, UROSMO #### [facility] [address] [place] [address] [place] Sodium [Moles/Vol] 126 mmol/L Low 136-146 [facility] Comment on above: Result Comment: PERF ORMED BY: [place] [address] PATHOLOGIST PRESSER MACHINE GERA CASTELLANOS M.D. Performed By: #### N A #### [facility] [address] [place] [address] [place] Sodium, Urine (Random)on Sodium, Urine (Random) < 10 Normal [facility] Comment on above: Result Comment: No r eference range established PERFORMED BY: [place] [address] PATHOLOGIST PRESSER MACHINE GERA CASTELLANOS M.D. Performed By: #### C UU, ADDONUAPLUS, UCREA, YUN, UROSMO #### [facility] [address] [place] [id number] [facility] Urine Cultureon 11-05-2021 Bacteria identified Cx Nom (U) 75,000 colonies/ml mixed bacterial skin contaminants including mixed gram negative bacilli - 2 Days PERFORMED BY: [place] [address] PATHOLOGIST PRESSER MACHINE GERA CASTELLANOS M.D. Normal [facility] Comment on above: Performed By: #### C UU, ADDONUAPLUS, UCREA, YUN, UROSMO #### [facility] [address] [place], [place] [id number] [facility] ABO/Rh Retypeon 11-04-2021 ABO/RH Recheck Result Positive [facility] Comment on above: Result Comment: PERF ORMED BY: [place] [address] PATHOLOGIST PRESSER MACHINE GERA CASTELLANOS M.D. COVID-19 Antigenon 2 COVID-19 [...] developed and its performance characteristic determined by [employer] and validated at [facility]. This test has not been FDA cleared [...] for SARS Antigen by [employer] PERFORMED BY: [place] [address] PATHOLOGIST PRESSER MACHINE GERA CASTELLANOS M.D. Normal [facility] Comment on above: Performed By: #### C UU, ADDONUAPLUS, UCREA, YUN, UROSMO #### [address] COVID-19 [facility] 11-04-2021 SARS-CoV-2 (COVID-19) RNA DONNIE+probe Ql (Unsp spec) Negative Normal Negative [facility] Comment on above: Order Comment: Healt hcare Worker?: N Result Comment: Testing for SARS-CoV-2 by RT-PCR This test was developed and its performance characteristics determined by [employer] and validated at the [facility]. This test has not been FDA cleared [...] is terminated or revoked sooner. PERFORMED BY: [place] [address] PATHOLOGIST PRESSER MACHINE GERA CASTELLANOS M.D. Performed By: #### C UU, SRIONUAPLUS, UCREA, YUN, UROSMO #### [address] abdomen pelvis wo conon 0 11-04-2021 CT abdomen pelvis wo con [facility] [place] [address] [place] [address] CT Scan Report Signed Patient: Linda Nascimento MR#: [id number] : 1950 Acct:[id number] Age/Sex: 71 / F ADM Date: 11/04/21 Loc: Room: [address] [place] [address] Type: ADM IN Attending Dr: Aissatou Sotelo [...] Haines Jr., M.D.11/04/2021 6:26 PM Dictation Location: RADIO-PC-06 Transcribed By: ROLF 11/04/211825 Dictated By: Marin Haines Jr, MD 11/04/211813 Signed By: 11/04/211825 [facility] CT head/brain wo conon 11-04 CT head/brain wo con [facility] [place] [address] CT Scan Report Signed Patient: Linda Nascimento MR#: [id number] : 1950 Acct:[id number] Age/Sex: 71 / F ADM Date: 11/04/21 Loc: Room: [address] [place] [address] Type: ADM IN Attending Dr: Aissatou Sotelo [...] Haines Jr., M.D.11/04/2021 6:14 PM Dictation Location: RADIO-PC-06 Transcribed By: ROLF 11/04/211813 Dictated By: Marin Haines Jr, MD 11/04/211810 Signed By: 11/04/211813 Normal [facility] Complete Blood Count Auto Di ffon 11-04-2021 Basophils (Bld) [#/Vol] 0.0 10*3/uL Normal 0.0-0.2 [facility] Comment on above: Order Comment: Name Collection Type:: Voided Result Comment: PERF ORMED BY: [place] [address] PATHOLOGIST PRESSER MACHINE GERA CASTELLANOS M.D. Performed By: #### C UU, ADDONUAPLUS, UCREA, YUN, UROSMO #### [facility] [address] [place] [address] Basophils/100 WBC (Bld) 0.1 % Normal . [facility] Comment on above: Order Comment: Name Collection Type:: Voided Performed By: #### C UU, ADDONUAPLUS, UCREA, YUN, UROSMO #### [facility] [address] [place] [address] Eosinophils (Bld) [#/Vol] 0.0 10*3/uL Normal 0.0-0.45 [facility] Comment on above: Order Comment: Name Collection Type:: Voided Performed By: #### C UU, ADDONUAPLUS, UCREA, YUN, UROSMO #### [facility] [address] [place] [address] Eosinophils/100 WBC (Bld) 0.2 % Normal . [facility] Comment on above: Order Comment: Name Collection Type:: Voided Performed By: #### C UU, ADDONUAPLUS, UCREA, YUN, UROSMO #### [facility] [address] [place] [address] Erythrocyte distribution width (RBC) [Ratio] 13.5 % Normal 11.9-15.3 [facility] Comment on above: Order Comment: Name Collection Type:: Voided Performed By: #### C UU, ADDONUAPLUS, UCREA, YUN, UROSMO #### [address] Hematocrit (Bld) [Volume fraction] 20.4 % Low 34.0-46.4 [facility] Comment on above: Order Comment: Name Collection Type:: Voided Performed By: #### C UU, ADDONUAPLUS, UCREA, YUN, UROSMO #### [address] Hemoglobin (Bld) [Mass/Vol] 7.0 g/dL Low 11.8-15.4 [facility] Comment on above: Order Comment: Name Collection Type:: Voided Performed By: #### C UU, ADDONUAPLUS, UCREA, YUN, UROSMO #### [address] Lymphocytes (Bld) [#/Vol] 0.5 10*3/uL Low 1.00-4.8 [facility] Comment on above: Order Comment: Name Collection Type:: Voided Performed By: #### C UU, ADDONUAPLUS, UCREA, YUN, UROSMO #### [address] Lymphocytes/100 WBC (Bld) 5.2 % Normal . [facility] Comment on above: Order Comment: Name Collection Type:: Voided Performed By: #### C UU, ADDONUAPLUS, UCREA, YUN, UROSMO #### [address] MCH (RBC) [Entitic mass] 34.8 pg High 24.7-34.3 [facility] Comment on above: Order Comment: Name Collection Type:: Voided Performed By: #### C UU, ADDONUAPLUS, UCREA, YUN, UROSMO #### [address] MCV (RBC) [Entitic vol] 101.9 fL High 80-100 [facility] Comment on above: Order Comment: Name Collection Type:: Voided Performed By: #### C UU, ADDONUAPLUS, UCREA, YUN, UROSMO #### [facility] [address] Mean Corpuscular HGB Conc 34.2 g/dL Normal 32.0-35.0 [facility] Comment on above: Order Comment: Name Collection Type:: Voided Performed By: #### C UU, ADDONUAPLUS, UCREA, YUN, UROSMO #### [facility] [address] [place] [address] [place] Monocytes (Bld) [#/Vol] 0.7 10*3/uL Normal 0.0-0.8 [facility] Comment on above: Order Comment: Name Collection Type:: Voided Performed By: #### C UU, ADDONUAPLUS, UCREA, YUN, UROSMO #### [place] [address] [place] Monocytes/100 WBC (Bld) 6.6 % Normal . [facility] Comment on above: Order Comment: Name Collection Type:: Voided Performed By: #### C UU, ADDONUAPLUS, UCREA, YUN, UROSMO #### [place] [address] [place] Neutrophils (Bld) [#/Vol] 8.8 10*3/uL High 1.8-7.7 [facility] Comment on above: Order Comment: Name Collection Type:: Voided Performed By: #### C UU, ADDONUAPLUS, UCREA, YUN, UROSMO #### [place] [address] [place] Neutrophils/100 WBC (Bld) 87.9 % Normal . [facility] Comment on above: Order Comment: Name Collection Type:: Voided Performed By: #### C UU, ADDONUAPLUS, UCREA, YUN, UROSMO #### [place] [address] [place] Nucleated RBC/100 WBC (Bld) [Ratio] 0.0 % Normal 0-0.5 [facility] Comment on above: Order Comment: Name Collection Type:: Voided Performed By: #### C UU, ADDONUAPLUS, UCREA, YUN, UROSMO #### [address] Platelet mean volume (Bld) [Entitic vol] 6.3 fL Normal 6.3-10.7 [facility] Comment on above: Order Comment: Name Collection Type:: Voided Performed By: #### C UU, ADDONUAPLUS, UCREA, YUN, UROSMO #### [address] Platelets (Bld) [#/Vol] 219 10*3/uL Normal 150-450 [facility] Comment on above: Order Comment: Name Collection Type:: Voided Performed By: #### C UU, ADDONUAPLUS, UCREA, YUN, UROSMO #### [address] RBC (Bld) [#/Vol] 2.00 10*6/uL Low 3.60-5.00 [facility] Comment on above: Order Comment: Name Collection Type:: Voided Performed By: #### C UU, ADDONUAPLUS, UCREA, YUN, UROSMO #### [address] WBC (Bld) [#/Vol] 10.0 10*3/uL Normal 4.5-11.0 [facility] Comment on above: Order Comment: Name Collection Type:: Voided Performed By: #### C UU, ADDONUAPLUS, UCREA, YUN, UROSMO #### [address] Comprehensive Metabolic Pane kyler 11-04-2021 Albumin [Mass/Vol] 2.8 g/dL Low 3.2-5.5 [facility] Comment on above: Performed By: #### C UU, ADDONUAPLUS, UCREA, YUN, UROSMO #### [address] Albumin/Globulin [Mass ratio] 1.2 {ratio} Normal [facility] Comment on above: Performed By: #### C UU, ADDONUAPLUS, UCREA, YUN, UROSMO #### [facility] [address] ALP [Catalytic activity/Vol] 70 U/L Normal 32-92 [facility] Comment on above: Performed By: #### C UU, ADDONUAPLUS, UCREA, YUN, UROSMO #### [facility] [address] ALT [Catalytic activity/Vol] 15 U/L Normal 10-60 [facility] Comment on above: Performed By: #### C UU, ADDONUAPLUS, UCREA, YUN, UROSMO #### [facility] [address] AST [Catalytic activity/Vol] 14 U/L Normal 10-42 [facility] Comment on above: Performed By: #### C UU, ADDONUAPLUS, UCREA, YUN, UROSMO #### [facility] [address] [place] [address] Bilirubin [Mass/Vol] 0.4 mg/dL Normal 0.3-1.2 [facility] Comment on above: Performed By: #### C UU, ADDONUAPLUS, UCREA, YUN, UROSMO #### [facility] [address] [place] [address] Calcium [Mass/Vol] 8.4 mg/dL Normal 8.2-10.2 [facility] Comment on above: Performed By: #### C UU, ADDONUAPLUS, UCREA, YUN, UROSMO #### [facility] [address] [place] [address] [place] Chloride [Moles/Vol] 94 mmol/L Low 95-114 [facility] Comment on above: Performed By: #### C UU, ADDONUAPLUS, UCREA, YUN, UROSMO #### [facility] [address] [place] [address] [place] CO2 [Moles/Vol] 22.9 mmol/L Normal 22.0-30.0 [facility] Comment on above: Performed By: #### C UU, ADDONUAPLUS, UCREA, YUN, UROSMO #### [facility] [address] Creatinine [Mass/Vol] 1.36 mg/dL High 0.44-1.03 [facility] Comment on above: Performed By: #### C UU, ADDONUAPLUS, UCREA, YUN, UROSMO #### [address] Creatinine Clr Calc Pharmacy 45.74 [facility] Comment on above: Result Comment: PERF ORMED BY: [place] [address] PATHOLOGIST PRESSER MACHINE GERA CASTELLANOS M.D. Performed By: #### C UU, ADDONUAPLUS, UCREA, YUN, UROSMO #### [address] Estimated GFR ( Neela 46 [facility] Comment on above: Result Comment: GFR estimated reference range: According to KDOQI guidelines, <60 ml/min/1.73m2 is sufficient to diagnose a patient with chronic kidney disease. Performed By: #### C UU, ADDONUAPLUS, UCREA, YUN, UROSMO #### [facility] [address] [place] [address] [place] Estimated GFR (Non- Am 38 [facility] Comment on above: Performed By: #### C UU, ADDONUAPLUS, UCREA, YUN, UROSMO #### [facility] [address] Globulin (S) [Mass/Vol] 2.4 g/dL [facility] Comment on above: Performed By: #### C UU, ADDONUAPLUS, UCREA, YUN, UROSMO #### [facility] [address] Glucose [Mass/Vol] 112 mg/dL High 70-100 [facility] Comment on above: Result Comment: Bode Glucose Reference Range is dependent on time and content of last meal. Glucose of more than 200 mg/dL in a nonstressed, ambulatory subject supports the diagnosis of Diabetes Mellitus. ADA recommended reference range Performed By: #### C UU, ADDONUAPLUS, UCREA, YUN, UROSMO #### [facility] [address] Potassium [Moles/Vol] 5.2 mmol/L High 3.5-5.1 [facility] Comment on above: Performed By: #### C UU, ADDONUAPLUS, UCREA, YUN, UROSMO #### [facility] [address] Protein [Mass/Vol] 5.2 g/dL Low 6.1-7.9 [facility] Comment on above: Performed By: #### C UU, ADDONUAPLUS, UCREA, YUN, UROSMO #### [facility] [address] Sodium [Moles/Vol] 123 mmol/L Off scale low 136-146 [facility] Comment on above: Result Comment: Resu lts called at 1333 on 11/04/21 Performed By: #### C UU, ADDONUAPLUS, UCREA, YUN, UROSMO #### [facility] [address] [place] [address] [place] Urea nitrogen [Mass/Vol] 24 mg/dL High 9-23 [facility] Comment on above: Performed By: #### C UU, ADDONUAPLUS, UCREA, YUN, UROSMO #### [facility] [address] ECG 12 lead ECGon 11-04-2021 ECG 12 lead ECG [facility] [place] [address] [place] [address] Electrocardiograph Report Signed Patient: Linda Nascimento MR#: [id number] : 1950 Acct:[id number] Age/Sex: 71 / F ADM Date: 11/04/21 Loc: Room: [address] [place] [address] Type: DIS IN Attending Dr: Javi Pearson [...] Inferior leads Confirmed by Ivan Kendrick DO ([id number]) on 11/04/2021 7:43:30 PM Referred By: Electronically Signed By:Ivan Kendrick DO Transcribed By: MUS Signed By Ivan Kendrick DO 11/04 Normal [facility] Ferritinon 11-04-2021 Ferritin [Mass/Vol] 123.0 ng/mL Normal 11-306.[address] [facility] Comment on above: Result Comment: PERF ORMED BY: [place] [address] PATHOLOGIST PRESSER MACHINE GERA CASTELLANOS M.D. Performed By: #### F E and TIBC, WILDER #### [facility] [address] Iron and TIBC Profileon 10-11 % Iron Saturation 21.0 % Normal 20-50 [facility] Comment on above: Performed By: #### F E and TIBC, WILDER #### [facility] [address] [place] [id number] [facility] Iron [Mass/Vol] 64 ug/dL Normal 40-150 [facility] Comment on above: Performed By: #### F E and TIBC, WILDER #### [facility] [address] [place] [id number] [facility] Total Iron Binding Capacity 291 ug/dL Normal 255-450 [facility] Comment on above: Performed By: #### F E and TIBC, WILDER #### [facility] [address] Transferrin [Mass/Vol] 208 mg/dL Normal 180-380 [facility] Comment on above: Performed By: #### F E and TIBC, WILDER #### [facility] [address] LeukoReduced RBCon 2 LeukoReduced RBC NOT AVAILABLE Normal [facility] Osmolalityon 11-04-2021 Osmolality 271 mosm Low 278-305 [facility] Comment on above: Result Comment: PERF ORMED BY: [place] [address] PATHOLOGIST PRESSER MACHINE GERA CASTELLANOS M.D. Performed By: #### C UU, ADDONUAPLUS, UCREA, YUN, UROSMO #### [address] Partial Thromboplastin Timeo n 11-04-2021 aPTT Coag (Bld) [Time] 26.7 s Normal 25.1-36.5 [facility] Comment on above: Result Comment: PERF ORMED BY: [place] [address] PATHOLOGIST PRESSER MACHINE GERA CASTELLANOS M.D. Performed By: #### C UU, ADDONUAPLUS, UCREA, YUN, UROSMO #### [address] Potassiumon 11-04-2021 Potassium [Moles/Vol] 4.9 mmol/L Normal 3.5-5.1 [facility] Comment on above: Performed By: #### C UU, ADDONUAPLUS, UCREA, YUN, UROSMO #### [address] Prothrombin Time INRon 11-04 INR Coag (PPP) [Relative time] 1.0 {INR} Normal [facility] Comment on above: Result Comment: INR Therapeutic [...] C UU, ADDONUAPLUS, UCREA, YUN, UROSMO #### [address] PT Coag (PPP) [Time] 11.8 s Normal 9.0-12.9 [facility] Comment on above: Performed By: #### C UU, ADDONUAPLUS, UCREA, YUN, UROSMO #### [address] Sodiumon 11-04-2021 Sodium [Moles/Vol] 125 mmol/L Low 136-146 [facility] Main [facility] Comment on above: Performed By: #### C UU, ADDONUAPLUS, UCREA, YUN, UROSMO #### [address] Anayeli Ag Negativeon 11-05-19 22 Anayeli Ag Negative Negative Normal Negative [facility] Comment on above: Result Comment: This is a duplicate Anayeli SARS Antigen (LION) result to be used for statistical tracking purpose only. PERFORMED BY: [place] [address] PATHOLOGIST PRESSER MACHINE GERA CASTELLANOS M.D. Performed By: #### C UU, ADDONUAPLUS, UCREA, YUN, UROSMO #### [address] Stool Occult Blood (Guaiac)o n 11-04-2021 Stool Occult Blood (Guaiac) Occult Blood Negative for Occult Blood by Guaiac Methodology Reference range = Negative PERFORMED BY: [address] [place] [address] PATHOLOGIST PRESSER MACHINE GERA CASTELLANOS M.D. Normal [facility] Comment on above: Performed By: #### C UU, ADDONUAPLUS, UCREA, YUN, UROSMO #### [facility] [address] Thyroid Stimulating Hormoneo n 11-04-2021 TSH Qn 0.77 m[IU]/L Normal 0.45-5.33 [facility] Comment on above: Performed By: #### C UU, ADDONUAPLUS, UCREA, YUN, UROSMO #### [facility] [address] [place] [address] Troponin I High Sensitivityo n 11-04-2021 Troponin I High Sensitivity 5 pg/mL Normal 0-15 [facility] Comment on above: Result Comment: PERF ORMED BY: [place] [address] PATHOLOGIST PRESSER MACHINE GERA CASTELLANOS M.D. Performed By: #### C UU, ADDONUAPLUS, UCREA, YUN, UROSMO #### [facility] [address] [place] [address] Type and Screenon 11-04-2021 ABO and Rh group Nom (Bld) Blood group O Rh(D) positive [facility] Comment on above: Order Comment: Trans fuse now? N Transfuse now? Y Number of units to transfuse now? 1 Transfuse now? Y Number of units to transfuse now? 1 Transfuse now? Y Number of units to transfuse now? 1 Transfuse now? Y Number of units to transfuse now? 1 Result Comment: PERF ORMED BY: [place] [address] PATHOLOGIST PRESSER MACHINE GERA CASTELLANOS M.D. Vitamin B12on 11-04-2021 Cobalamin (Vitamin B12) [Mass/Vol] 882 pg/mL Normal 180-914 [facility] Comment on above: Performed By: #### C UU, ADDONUAPLUS, UCREA, YUN, UROSMO #### [facility] [address] [place] [address] Vitamin D 25 Hydroxy Totalon 11-04-2021 Vitamin D 25 Hydroxy Total 84.5 ng/mL Normal 30-100 [facility] Comment on above: Result Comment: LOKI MIN D STATUS 25(OH)VITAMIN D RANGE (ng/mL) Deficient <20 Insufficient 20 to <30 Sufficient 30 to 100 Reference: Maryam MF,Franklin NC, Ángela SCHAEFER, et al. Evaluation,treatment, and prevention of vitamin D deficiency; an Endocrine Society clinical practice guideline. JCEM. 2010; 96(7):1911-30. PERFORMED BY: [place] [address] PATHOLOGIST PRESSER MACHINE GERA CASTELLANOS M.D. Performed By: #### C UU, ADDONUAPLUS, UCREA, YUN, UROSMO #### [address] XR hip RT min 2V(w/wo pelvis )*on 11-04-2021 XR hip RT min 2V(w/wo pelvis)* [facility] [place] [address] XRay Report Signed Patient: Linda Nascimento MR#: [id number] 840 : 1950 Acct:[id number] Age/Sex: 71 / F ADM Date: 11/04/21 [...] Ambrocio Cintron M.D.11/04/2021 12:43 PM Dictation Location: RADIO-PC-13 Transcribed By: [facility] 11/04/21 1243 Dictated By: Ambrocio Cintron DO 11/04/21 1238 Signed By: 11/04/21 1243 [facility] XR knee LT 4V*on 11-04-2021 XR knee LT 4V* [facility] [place] [address] XRay Report Signed Patient: Linda Nascimento MR#: [id number] 840 : 1950 Acct:[id number] Age/Sex: 71 / F ADM Date: 11/04/21 Loc: ER Room: Type: [facility] ER Attending Dr: Ordering Provider: [...] Ambrocio Cintron M.D.11/04/2021 2:36 PM Dictation Location: RADIO-PC-13 Transcribed By: [facility] 11/04/21 1436 Dictated By: Ambrocio Cintron DO 11/04/21 1433 Signed By: 11/04/21 1436 [facility] XR knee LT 2Von 11-03-2021 XR knee LT 2V [facility] Main [place] [id number] XRay Report Signed Patient: Linda Nascimento MR#: [id number] 840 : 1950 Acct:[id number] Age/Sex: 71 / F ADM Date: 11/03/21 [facility] Room: Type: REG CLI Attending Dr: Emilie CASTLEC Ordering Provider: [...] Reymundo Madrid M.D.11/03/2021 4:01 PM Dictation Location: [place] [address] Transcribed By: [facility] 11/03/21 1601 Dictated By: Reymundo Madrid II, MD 11/03/21 1600 Signed By: 11/03/21 1601 [facility] MR lumbar spine wo conon MR lumbar spine wo con [facility] [place] [address] MRI Report Signed Patient: Linda Nascimento MR#: [id number] 840 : 1950 Acct:[id number] Age/Sex: 71 / F ADM Date: 10/26/21 Loc: Room: Type: [facility] CLI Attending Dr: Gunnar Fernandez DO Ordering Provider: Gunnar Fernadnez DO Date of Service: 10/26/21 MR/MR lumbar [...] Reymundo Madrid M.D.10/26/2021 11:37 AM Dictation Location: [place] [address] Transcribed By: [facility] 10/26/21 1137 Dictated By: Reymundo Madrid II, MD 10/26/21 1127 Signed By: 10/26/21 1137 [facility] XR lumbar spine AP/LAT/FLX/E XTon 10-06-2021 XR lumbar spine AP/LAT/FLX/EXT [facility] [place] [address] [place] [address] XRay Report Signed Patient: Linda Nascimento MR#: [id number] 840 : 1950 Acct:[id number] Age/Sex: 71 / F ADM Date: 10/06/21 Loc: [facility] Room: Type: [facility] Attending Dr: Gunnar Fernandez DO Ordering Provider: [...] Haines Jr., M.D.10/06/2021 4:07 PM Dictation Location: [place] [address] Transcribed By: [facility] 10/06/21 1608 Dictated By: Marin Haines Jr, MD 10/06/21 1600 Signed By: 10/06/21 1600 [facility] XR lumbar spine AP/LAT/FLX/EXT [facility] [employer] Other XR lumbar spine AP/LAT/FLX/EXT [facility] [employer] Other XR lumbar spine AP/LAT/FLX/EXT [address] [place] [address] [employer] Other XR lumbar spine AP/LAT/FLX/[place] [address] [employer] Other XR lumbar spine AP/LAT/FLX/EXT XRay Report [employer] Other XR lumbar spine AP/LAT/FLX/EXT Signed [employer] Other XR lumbar spine AP/LAT/FLX/EXT Patient: Linda Nascimento MR#: [id number] [employer] Other XR lumbar spine AP/LAT/FLX/EXT 840 [employer] Other XR lumbar spine AP/LAT/FLX/EXT : 1950 Acct:[id number] [employer] Other XR lumbar spine AP/LAT/FLX/EXT Age/Sex: 71 / F ADM Date: 10/06/21 [employer] Other XR lumbar spine AP/LAT/FLX/EXT Loc: [facility] Room: Type: [facility] [employer] Other XR lumbar spine AP/LAT/FLX/EXT Attending Dr: Gunnar Fernandez DO [employer] Other XR lumbar spine AP/LAT/FLX/EXT Ordering Provider: Gunnar Fernandez DO [employer] Other XR lumbar spine AP/LAT/FLX/EXT Date of Service: 10/06/21 [employer] Other XR lumbar spine AP/LAT/FLX/EXT XR/XR lumbar spine AP/LAT/FLX/EXT: Lumbar pain [employer] Other XR lumbar spine AP/LAT/FLX/EXT Copies to: Gunnar Fernandez DO [employer] Other XR lumbar spine AP/LAT/FLX/EXT Lumbar spine 10/06/2021. [employer] Other XR lumbar spine AP/LAT/FLX/EXT CLINICAL DATA: Low back pain with radiation to the buttocks. [employer] Other XR lumbar spine AP/LAT/FLX/EXT FINDINGS: 4 standing views of the lumbar spine were obtained including lateral views in the [employer] Other XR lumbar spine AP/LAT/FLX/EXT neutral, flexion, and extension positions. [employer] Other XR lumbar spine AP/LAT/FLX/EXT There is grade 2 spondylolisthesis measuring 17 mm at L4-L5. There is grade 1 spondylolisthesis [employer] Other XR lumbar spine AP/LAT/FLX/EXT measuring 8 mm at the lumbosacral junction. There is mild anterior malalignment of L3 on L4. Overall [employer] Other XR lumbar spine AP/LAT/FLX/EXT vertebral alignment does not significantly change with flexion or extension. There are disc space [employer] Other XR lumbar spine AP/LAT/FLX/EXT narrowing and facet arthritis in the lower lumbar spine. [employer] Other XR lumbar spine AP/LAT/FLX/EXT XR/XR lumbar spine AP/LAT/FLX/EXT [employer] Other XR lumbar spine AP/LAT/FLX/EXT IMPRESSION: Multilevel spondylolisthesis. No instability with flexion or extension. Disc space [employer] Other XR lumbar spine AP/LAT/FLX/EXT Impression dictated by: Marin Haines Jr., M.D.10/06/2021 4:07 PM [employer] Other XR lumbar spine AP/LAT/FLX/EXT Dictation Location: [place] [address] [employer] Other XR lumbar spine AP/LAT/FLX/EXT Transcribed By: ROLF 10/06/21 [facility] [employer] Other XR lumbar spine AP/LAT/FLX/EXT Dictated By: Marin Haines Jr, MD 10/06/21 [facility] [employer] Other XR lumbar spine AP/LAT/FLX/EXT Signed By: [employer] Other XR lumbar spine AP/LAT/FLX/EXT 10/06/21 [facility] [employer] Other BASIC METABOLIC PANELon 11-1 Calcium [Mass/Vol] 8.2 mg/dL Low 8.6-10.3 [facility] Comment on above: Order Comment: No: D o not add to previous draw Performed By: #### 0 0071 ####[facility] [place] [address], [facility] Chloride [Moles/Vol] 106 mmol/L Normal 98-107 [facility] Comment on above: Order Comment: No: D o not add to previous draw Performed By: #### 0 0071 ####[facility] [place] [address], [facility] CO2 [Moles/Vol] 23 mmol/L Normal 21-31 [facility] Comment on above: Order Comment: No: D o not add to previous draw Performed By: #### 0 0071 ####[facility] [place] [address], [place] Creatinine [Mass/Vol] 0.98 mg/dL Normal 0.60-1.20 [facility] Comment on above: Order Comment: No: D o not add to previous draw Performed By: #### 0 0071 ####[facility] [place] [address], [place] eGFR- non- 56 ml/min/1.73sq m Abnormal >60 [facility] Comment on above: Order Comment: No: D o not add to previous draw Result Comment: Calc ulation may not be valid for patients over 70 years Performed By: #### 0 0071 ####[facility] [place] [address], [place] GFR/1.73 sq M.predicted among blacks MDRD (S/P/Bld) [Vol rate/Area] mL/min/{1.73_m2} Normal >60 [facility] Comment on above: Order Comment: No: D o not add to previous draw Result Comment: Calc ulation may not be valid for patients over 70 years Performed By: #### 0 0071 ####[facility] [place] [address], [place] Glucose [Mass/Vol] 104 mg/dL High 70-100 [facility] Comment on above: Order Comment: No: D o not add to previous draw Performed By: #### 0 0071 ####[facility] [place] [address], [place] Potassium [Moles/Vol] 4.5 mmol/L Normal 3.5-5.1 [facility] Comment on above: Order Comment: No: D o not add to previous draw Performed By: #### 0 0071 ####[facility] [place] [address], [place] Sodium [Moles/Vol] 136 mmol/L Normal 136-145 [facility] Comment on above: Order Comment: No: D o not add to previous draw Performed By: #### 0 0071 ####[facility] [place] [address], [facility] Urea nitrogen [Mass/Vol] 14 mg/dL Normal 7-25 [facility] Comment on above: Order Comment: No: D o not add to previous draw Performed By: #### 0 0071 ####[facility] [place] [address], [facility] HEMATOCRITon 04-28-2021 Hematocrit (Bld) [Volume fraction] 27.6 % Low 36.0-45.0 [facility] Comment on above: Order Comment: No: D o not add to previous draw Performed By: #### 5 7307, 27812 #### [facility] [address] [facility]. [address] HEMOGLOBINon 04-28-2021 Hemoglobin (Bld) [Mass/Vol] 8.6 g/dL Low 12.0-15.0 [facility] Comment on above: Order Comment: No: D o not add to previous draw Performed By: #### 5 7307, 40160 #### [facility] [address] CHEST AND LATERALon 04-27-20 CHEST AND LATERAL [facility] Department of Radiology [address] [place] [address] Patient Name: LINDA NASCIMENTO : 1950 Sex: F Age: Race: White Pt. Location: [id number] Patient Status: I Ordered Date: 04/27/2021 7:00:00 [...] leads. Electronically signed: Dwight Davila. Transcribed by: [email or web address], User Resident: Electronically Signed by: DWIGHT DAVILA @ 04/27/2021 10:35 AM Normal [facility] Comment on above: Order Comment: No: D o not add to previous draw BASIC METABOLIC PANELon 04-12 Calcium [Mass/Vol] 8.7 mg/dL Normal 8.6-10.3 [facility] Comment on above: Order Comment: No: D o not add to previous draw Performed By: #### 0 0071 ####[facility] [place] [address], [facility] Chloride [Moles/Vol] 103 mmol/L Normal 98-107 [facility] Comment on above: Order Comment: No: D o not add to previous draw Performed By: #### 0 0071 ####[facility] [facility] [place] [address], [facility] CO2 [Moles/Vol] 24 mmol/L Normal 21-31 [facility] Comment on above: Order Comment: No: D o not add to previous draw Performed By: #### 0 0071 ####[facility] [place] [address], [facility] Creatinine [Mass/Vol] 1.05 mg/dL Normal 0.60-1.20 [facility] Comment on above: Order Comment: No: D o not add to previous draw Performed By: #### 0 0071 ####[facility] eGFR- non- 51 ml/min/1.73sq m Abnormal >60 [facility] Comment on above: Order Comment: No: D o not add to previous draw Result Comment: Calc ulation may not be valid for patients over 70 years Performed By: #### 0 0071 ####[facility] [place] [address], [facility] GFR/1.73 sq M.predicted among blacks MDRD (S/P/Bld) [Vol rate/Area] mL/min/{1.73_m2} Normal >60 [facility] Comment on above: Order Comment: No: D o not add to previous draw Result Comment: Calc ulation may not be valid for patients over 70 years Performed By: #### 0 0071 ####[facility] [place] [address], [facility] Glucose [Mass/Vol] 107 mg/dL High 70-100 [facility] Comment on above: Order Comment: No: D o not add to previous draw Performed By: #### 0 0071 ####[facility] [place] [address], [facility] Potassium [Moles/Vol] 4.6 mmol/L Normal 3.5-5.1 [facility] Comment on above: Order Comment: No: D o not add to previous draw Performed By: #### 0 0071 ####[facility] [facility].[address] Sodium [Moles/Vol] 134 mmol/L Low 136-145 [facility] Comment on above: Order Comment: No: D o not add to previous draw Performed By: #### 0 0071 ####[facility] Urea nitrogen [Mass/Vol] 21 mg/dL Normal 7-25 [facility] Comment on above: Order Comment: No: D o not add to previous draw Performed By: #### 0 0071 ####[facility] CBC W/DIFFon 04-26-2021 ABS IMM GRANS 0.0 10*3/uL Normal 0.0-0.2 [facility] Comment on above: Order Comment: No: D o not add to previous draw Performed By: #### 5 0103 #### [facility] [address] [place] [address], [facility] ABS NEUTROPHILS 4.8 10*3/uL Normal 1.6-7.6 [facility] Comment on above: Order Comment: No: D o not add to previous draw Performed By: #### 5 0103 #### [facility] [address] [place] [address], [facility] Basophils (Bld) [#/Vol] 0.0 10*3/uL Normal 0.0-0.2 [facility] Comment on above: Order Comment: No: D o not add to previous draw Performed By: #### 5 0103 #### [facility] [address] [place] [address], [facility] Basophils/100 WBC (Bld) 0.6 % Normal 0.0-1.0 [facility] Comment on above: Order Comment: No: D o not add to previous draw Performed By: #### 5 0103 #### [facility] [address] [place] [address], [facility] Eosinophils (Bld) [#/Vol] 0.4 10*3/uL Normal 0.0-0.5 [facility] Comment on above: Order Comment: No: D o not add to previous draw Performed By: #### 5 0103 #### [facility] [address] [place] [address], [facility] Eosinophils/100 WBC (Bld) 6.0 % Normal 0.0-6.0 [facility] Comment on above: Order Comment: No: D o not add to previous draw Performed By: #### 5 0103 #### [facility] [address] [facility] [place] [address], [facility] Erythrocyte distribution width (RBC) [Ratio] 13.1 % Normal 11.5-15.0 [facility] Comment on above: Order Comment: No: D o not add to previous draw Performed By: #### 5 0103 #### [facility] [address] [place] [address], [facility] Hematocrit (Bld) [Volume fraction] 27.8 % Low 36.0-45.0 [facility] Comment on above: Order Comment: No: D o not add to previous draw Performed By: #### 5 0103 #### [facility] [address] [place] [address], [facility] Hemoglobin (Bld) [Mass/Vol] 9.0 g/dL Low 12.0-15.0 [facility] Comment on above: Order Comment: No: D o not add to previous draw Performed By: #### 5 0103 #### [facility] [address] [place] [address], [facility] IMMATURE GRANS 0.3 % Normal 0.0-1.0 [facility] Comment on above: Order Comment: No: D o not add to previous draw Performed By: #### 5 0103 #### [facility] [address] [place] [address], [facility] Lymphocytes (Bld) [#/Vol] 0.7 10*3/uL Low 1.2-4.0 [facility] Comment on above: Order Comment: No: D o not add to previous draw Performed By: #### 5 0103 #### [facility] [address] [place] [address], [facility] Lymphocytes/100 WBC (Bld) 9.8 % Low 20.0-45.0 [facility] Comment on above: Order Comment: No: D o not add to previous draw Performed By: #### 5 0103 #### [facility] [address] [place] [address], [facility] MCH (RBC) [Entitic mass] 33.5 pg High 27.0-33.0 [facility] Comment on above: Order Comment: No: D o not add to previous draw Performed By: #### 5 0103 #### [facility] [address] MCHC (RBC) [Mass/Vol] 32.4 g/dL Normal 32.0-35.0 [facility] Comment on above: Order Comment: No: D o not add to previous draw Performed By: #### 5 0103 #### [facility] [address] [place] [address], [facility] MCV (RBC) [Entitic vol] 103.3 fL High 82.0-98.0 [facility] Comment on above: Order Comment: No: D o not add to previous draw Performed By: #### 5 0103 #### [facility] [address] [place] [address], [facility] Monocytes (Bld) [#/Vol] 0.7 10*3/uL Normal 0.1-1.0 [facility] Comment on above: Order Comment: No: D o not add to previous draw Performed By: #### 5 0103 #### [facility] [address] [place] [address], [facility] MONOS 10.4 % Normal 5.0-12.0 [facility] Comment on above: Order Comment: No: D o not add to previous draw Performed By: #### 5 0103 #### [facility] [address] [place] [address], [facility] Neutrophils/100 WBC (Bld) 72.9 % High 40.0-72.0 [facility] Comment on above: Order Comment: No: D o not add to previous draw Performed By: #### 5 0103 #### [facility] [address] [facility] [place] [address], [facility] Nucleated RBC/100 WBC (Bld) [Ratio] 0 % Normal 0-0 [facility] Comment on above: Order Comment: No: D o not add to previous draw Performed By: #### 5 0103 #### [facility] [address] [facility] [place] [address], [facility] PLAT CNT 213 10*3/uL Normal 150-400 [facility] Comment on above: Order Comment: No: D o not add to previous draw Performed By: #### 5 0103 #### [facility] [address] [place] [address], [facility] RBC (Bld) [#/Vol] 2.69 10*6/uL Low 3.80-5.00 The [facility] Comment on above: Order Comment: No: D o not add to previous draw Performed By: #### 5 3 #### [facility] [address] [facility]. [address] WBC (Bld) [#/Vol] 6.62 10*3/uL Normal 4.00-10.60 The [facility] Comment on above: Order Comment: No: D o not add to previous draw Performed By: #### 5 0103 #### [facility] [address] [facility]. [address] Cardiovascular Lab Reporton 04-26-2021 Cardiovascular Lab Report [facility] Patient Name: [facility] L MR #: [id number] Department of Physician: Enoch Frankel MD Medicine Service Date: 04/26/2021 Division of Birthdate: 1950 Cardiology Room #: [id number] Adult [facility] [place] [address] Cardiovascular Laboratory Report PACEMAKER IMPLANT PROCEDURE NOTE [...] using modified seldinger technique using a 5 Moroccan micro-puncture needle on two occasions and 0.35 wires were placed. Local infiltration of 1% Lidocaine was performed, and an incision was created in the left upper chest. Dissection was then performed using cautery down to the fascial plane above the muscle and a small pocket was created for the device. 6 Moroccan Safesheaths were placed over the wire. An active fixation [employer] pacing lead was then delivered through the 6Fsheath to the right ventricle. After confirmation of lead position on orthogonal views (GONZALES and SETS[place]) to confirm septal position, the screw was activated, and the lead was placed in the right ventricular mid cavity towards the septum. After confirmation of good sensing parameters, injury pattern and pacing thresholds, 10V pacing was done and no diaphragmatic stimulation was noted. It was then secured in the pocket using three 1-0 Silk sutures. Then an active fixation [employer] lead was delivered through the 6Fsheath to the right atrial appendage. After confirmation of lead position on orthogonal views (GONZALES and [place]SWANA), the screw was activated. RA lead was [...] immediate procedural complications were noted. Device info: Biotronik Edora Model# 8DRT Serial# [id number] RA lead: Model# Biot[employer]ik Solia S53 Serial# [id number] Sensin.9mV Threshold: 1.1V@0.5ms Impedance: 429 Ohms RV lead: Model (more content not included)... Normal [facility] BASIC METABOLIC PANELon - Calcium [Mass/Vol] 8.6 mg/dL Normal 8.6-10.3 [facility] Comment on above: Order Comment: No: D o not add to previous draw Performed By: #### 0 0071 ####[place] [id number] [place] [address], [facility] Chloride [Moles/Vol] 101 mmol/L Normal 98-107 [facility] Comment on above: Order Comment: No: D o not add to previous draw Performed By: #### 0 0071 ####[place] [id number] [place] [address], [facility] CO2 [Moles/Vol] 24 mmol/L Normal 21-31 [facility] Comment on above: Order Comment: No: D o not add to previous draw Performed By: #### 0 0071 ####[place] [id number] [place] [address], [facility] Creatinine [Mass/Vol] 1.36 mg/dL High 0.60-1.20 [facility] Comment on above: Order Comment: No: D o not add to previous draw Performed By: #### 0 0071 ####[place] [id number] [place] [address], [facility] eGFR- 46 ml/min/1.73sq m Abnormal >60 [facility] Comment on above: Order Comment: No: D o not add to previous draw Result Comment: Calc ulation may not be valid for patients over 70 years Performed By: #### 0 0071 ####[id number] [facility] [place] [address], [facility] eGFR- non- 39 ml/min/1.73sq m Abnormal >60 [facility] Comment on above: Order Comment: No: D o not add to previous draw Result Comment: Calc ulation may not be valid for patients over 70 years Performed By: #### 0 0071 ####[id number] [facility] [place] [address], [facility] Glucose [Mass/Vol] 98 mg/dL Normal 70-100 [facility] Comment on above: Order Comment: No: D o not add to previous draw Performed By: #### 0 0071 ####[id number] [facility] [place] [address], [facility] Potassium [Moles/Vol] 4.4 mmol/L Normal 3.5-5.1 [facility] Comment on above: Order Comment: No: D o not add to previous draw Performed By: #### 0 0071 ####[id number] [facility] [place] [address], [facility] Sodium [Moles/Vol] 132 mmol/L Low 136-145 [facility] Comment on above: Order Comment: No: D o not add to previous draw Performed By: #### 0 0071 ####[facility] [facility].[place] [id number], [place] Urea nitrogen [Mass/Vol] 22 mg/dL Normal 7-25 [facility] Comment on above: Order Comment: No: D o not add to previous draw Performed By: #### 0 0071 ####[facility] [place] [address], [place] HEMATOCRITon 04-25-2021 Hematocrit (Bld) [Volume fraction] 28.3 % Low 36.0-45.0 [facility] Comment on above: Order Comment: No: D o not add to previous draw Performed By: #### 5 7307, 57800 #### [facility] [address] [place] [address], [place] HEMOGLOBINon 04-25-2021 Hemoglobin (Bld) [Mass/Vol] 9.0 g/dL Low 12.0-15.0 [facility] Comment on above: Order Comment: No: D o not add to previous draw Performed By: #### 9 2097, 30435 #### [facility] [address] [place] [address], [facility] BASIC METABOLIC PANELon 04-12 Calcium [Mass/Vol] 8.8 mg/dL Normal 8.6-10.3 [facility] Comment on above: Order Comment: No: D o not add to previous draw Performed By: #### 1 69, 96894 ####[facility] [place] [address], [place] Chloride [Moles/Vol] 101 mmol/L Normal 98-107 [facility] Comment on above: Order Comment: No: D o not add to previous draw Performed By: #### 1 69, 53800 ####[facility] [place] [address], [place] CO2 [Moles/Vol] 26 mmol/L Normal 21-31 [facility] Comment on above: Order Comment: No: D o not add to previous draw Performed By: #### 1 69, 75401 ####[facility] [place] [address], [place] Creatinine [Mass/Vol] 1.17 mg/dL Normal 0.60-1.20 [facility] Comment on above: Order Comment: No: D o not add to previous draw Performed By: #### 1 69, 64873 ####[facility] eGFR- 55 ml/min/1.73sq m Abnormal >60 [facility] Comment on above: Order Comment: No: D o not add to previous draw Result Comment: Calc ulation may not be valid for patients over 70 years Performed By: #### 1 69, 15835 ####[facility] eGFR- non- 45 ml/min/1.73sq m Abnormal >60 [facility] Comment on above: Order Comment: No: D o not add to previous draw Result Comment: Calc ulation may not be valid for patients over 70 years Performed By: #### 1 69, 60615 ####[facility] [place] [address], [facility] Glucose [Mass/Vol] 102 mg/dL High 70-100 [facility] Comment on above: Order Comment: No: D o not add to previous draw Performed By: #### 1 69, 74406 ####[facility] [place] [address], [facility] Potassium [Moles/Vol] 4.5 mmol/L Normal 3.5-5.1 [facility] Comment on above: Order Comment: No: D o not add to previous draw Performed By: #### 1 69, 94268 ####[facility] [place] [address], [facility] Sodium [Moles/Vol] 133 mmol/L Low 136-145 [facility]: Order Comment: No: D o not add to previous draw Performed By: #### 1 69, 18682 ####[facility] [place] [address], [facility] Urea nitrogen [Mass/Vol] 20 mg/dL Normal 7-25 [facility] Comment on above: Order Comment: No: D o not add to previous draw Performed By: #### 1 0, 26226 ####[facility] [place] [address], [facility] HEMOGLOBINon 04-24-2021 Hemoglobin (Bld) [Mass/Vol] 10.0 g/dL Low 12.0-15.0 [facility] Comment on above: Order Comment: Yes: Add to Previous draw if able NEEDS DRAWN. NO LAV TUBE FROM AM LABS Performed By: #### 9 2089 #### [facility] [address] [place] [address], [facility] MAGNESIUM BLOODon 04-24-2021 Magnesium [Mass/Vol] 2.1 mg/dL Normal 1.9-2.7 [facility] Comment on above: Order Comment: No: D o not add to previous draw Performed By: #### 1 0, 02025 ####[id number] [place] [address], [facility] BASIC METABOLIC PANELon 04-12 Calcium [Mass/Vol] 8.4 mg/dL Low 8.6-10.3 [facility] Comment on above: Order Comment: Unkno wn Performed By: #### 1 0, 30468, 11018 ####[facility] [facility] [place] [address], [place] Chloride [Moles/Vol] 100 mmol/L Normal 98-107 [facility] Comment on above: Order Comment: Unkno wn Performed By: #### 1 0, 91577, 97013 ####[facility] [place] [address], [place] CO2 [Moles/Vol] 25 mmol/L Normal 21-31 [facility] Comment on above: Order Comment: Unkno wn Performed By: #### 1 0, 85385, 62231 ####[facility] [place] [address], [facility] Creatinine [Mass/Vol] 1.30 mg/dL High 0.60-1.20 [facility] Comment on above: Order Comment: Unkno wn Performed By: #### 1 0, 35498, 95466 ####[facility] eGFR- 49 ml/min/1.73sq m Abnormal >60 [facility] Comment on above: Order Comment: Unkno wn Result Comment: Calc ulation may not be valid for patients over 70 years Performed By: #### 1 0, 55000, 48614 ####[facility] [facility].[address] eGFR- non- 40 ml/min/1.73sq m Abnormal >60 [facility] Comment on above: Order Comment: Unkno wn Result Comment: Calc ulation may not be valid for patients over 70 years Performed By: #### 1 0, 30980, 72977 ####[facility] [facility] [place] [address], [facility] Glucose [Mass/Vol] 93 mg/dL Normal 70-100 [facility] Comment on above: Order Comment: Unkno wn Performed By: #### 1 0, 12061, 70920 ####[facility] [place] [address], [place] Potassium [Moles/Vol] 4.1 mmol/L Normal 3.5-5.1 [facility] Comment on above: Order Comment: Unkno wn Performed By: #### 1 0, 46079, 47919 ####[facility] [place] [address], [place] Sodium [Moles/Vol] 133 mmol/L Low 136-145 [facility] Comment on above: Order Comment: Unkno wn Performed By: #### 1 0070, 58970, 45802 ####[facility] Urea nitrogen [Mass/Vol] 20 mg/dL Normal 7-25 [facility] Comment on above: Order Comment: Unkno wn Performed By: #### 1 0070, 30082, 88791 ####[facility] CBC W/DIFFon 04-23-2021 ABS IMM GRANS 0.1 10*3/uL Normal 0.0-0.2 [facility] Comment on above: Order Comment: Unkno wn Performed By: #### 5 0103 #### [facility] [address] ABS NEUTROPHILS 7.8 10*3/uL High 1.6-7.6 [facility] Comment on above: Order Comment: Unkno wn Performed By: #### 5 0103 #### [facility] [address] [place] [address], [facility] Basophils (Bld) [#/Vol] 0.1 10*3/uL Normal 0.0-0.2 [facility] Comment on above: Order Comment: Unkno wn Performed By: #### 5 0103 #### [facility] [address] [place] [address], [facility] Basophils/100 WBC (Bld) 0.5 % Normal 0.0-1.0 [facility] Comment on above: Order Comment: Unkno wn Performed By: #### 5 0103 #### [facility] [address] [place] [address], [facility] Eosinophils (Bld) [#/Vol] 0.4 10*3/uL Normal 0.0-0.5 [facility] Comment on above: Order Comment: Unkno wn Performed By: #### 5 0103 #### [facility] [address] [place] [address], [facility] Eosinophils/100 WBC (Bld) 3.5 % Normal 0.0-6.0 [facility] Comment on above: Order Comment: Unkno wn Performed By: #### 5 0103 #### [facility] [address] [place] [address], [facility] Erythrocyte distribution width (RBC) [Ratio] 13.2 % Normal 11.5-15.0 [facility] Comment on above: Order Comment: Unkno wn Performed By: #### 5 3 #### [facility] [address] [place] [address], [facility] Hematocrit (Bld) [Volume fraction] 29.2 % Low 36.0-45.0 [facility] Comment on above: Order Comment: Unkno wn Performed By: #### 3 #### [facility] [address] [place] [address], [facility] Hemoglobin (Bld) [Mass/Vol] 9.3 g/dL Low 12.0-15.0 [facility] Comment on above: Order Comment: Unkno wn Performed By: #### 5 3 #### [facility] [address] [place] [address], [facility] IMMATURE GRANS 0.6 % Normal 0.0-1.0 [facility] Comment on above: Order Comment: Unkno wn Performed By: #### 3 #### [facility] [address] [place] [address], [facility] Lymphocytes (Bld) [#/Vol] 0.7 10*3/uL Low 1.2-4.0 [facility] Comment on above: Order Comment: Unkno wn Performed By: #### 3 #### [facility] [address] [place] [address], [facility] Lymphocytes/100 WBC (Bld) 6.8 % Low 20.0-45.0 [facility] Comment on above: Order Comment: Unkno wn Performed By: #### 5 0103 #### [facility] [address] [place] [address], [facility] MCH (RBC) [Entitic mass] 33.5 pg High 27.0-33.0 [facility] Comment on above: Order Comment: Unkno wn Performed By: #### 5 0103 #### [facility] [address] [place] [address], [facility] MCHC (RBC) [Mass/Vol] 31.8 g/dL Low 32.0-35.0 [facility] Comment on above: Order Comment: Unkno wn Performed By: #### 5 0103 #### [facility] [address] [facility] [place] [address], [facility] MCV (RBC) [Entitic vol] 105.0 fL High 82.0-98.0 [facility] Comment on above: Order Comment: Unkno wn Performed By: #### 5 0103 #### [facility] [address] [place] [address], [facility] Monocytes (Bld) [#/Vol] 1.0 10*3/uL Normal 0.1-1.0 [facility] Comment on above: Order Comment: Unkno wn Performed By: #### 5 0103 #### [facility] [address] [place] [address], [facility] MONOS 10.0 % Normal 5.0-12.0 [facility] Comment on above: Order Comment: Unkno wn Performed By: #### 5 0103 #### [facility] [address] [place] [address], [facility] Neutrophils/100 WBC (Bld) 78.6 % High 40.0-72.0 [facility] Comment on above: Order Comment: Unkno wn Performed By: #### 5 3 #### [facility] [address] [place] [address], [facility] Nucleated RBC/100 WBC (Bld) [Ratio] 0 % Normal 0-0 [facility] Comment on above: Order Comment: Unkno wn Performed By: #### 5 3 #### [facility] [address] [facility] [place] [address], [facility] PLAT CNT 227 10*3/uL Normal 150-400 [facility] Comment on above: Order Comment: Unkno wn Performed By: #### 5 0103 #### [facility] [address] [facility] [place] [address], [facility] RBC (Bld) [#/Vol] 2.78 10*6/uL Low 3.80-5.00 The [facility] Comment on above: Order Comment: Unkno wn Performed By: #### 5 3 #### [facility] [address] [facility] [place] [address], [facility] WBC (Bld) [#/Vol] 9.87 10*3/uL Normal 4.00-10.60 [facility] Comment on above: Order Comment: Unkno wn Performed By: #### 5 102 #### [facility] [address] [facility] [place] [address], [facility] MAGNESIUM BLOODon 04-23-2021 Magnesium [Mass/Vol] 2.1 mg/dL Normal 1.9-2.7 [facility] Comment on above: Order Comment: Unkno wn Performed By: #### 1 0, 95809, 18466 ####[facility] [place] [address], [facility] PHOSPHORUS BLOODon Phosphate [Mass/Vol] 2.8 mg/dL Normal 2.5-5.0 [facility] Comment on above: Order Comment: Unkno wn Performed By: #### 1 0, 52259, 06951 ####[facility] [place] [address], [facility] APTTon 04-22-2021 aPTT Coag (Bld) [Time] 27.6 s Normal 25.0-35.0 [facility] Comment on above: Order Comment: No: [...] THIS PURPOSE. Performed By: #### 5 7307, 48240 #### [facility] [address] [facility]. [address] BASIC METABOLIC PANELon 04-12 Calcium [Mass/Vol] 8.8 mg/dL Normal 8.6-10.3 [facility] Comment on above: Order Comment: No: D o not add to previous draw Performed By: #### 4 1000, 67488, 90199, 59842 ####[facility] [place] [address], [facility] Chloride [Moles/Vol] 99 mmol/L Normal 98-107 [facility] Comment on above: Order Comment: No: D o not add to previous draw Performed By: #### 4 1000, 62245, 98556, 09784 ####[facility] [place] [address], [facility] CO2 [Moles/Vol] 27 mmol/L Normal 21-31 [facility] Comment on above: Order Comment: No: D o not add to previous draw Performed By: #### 4 1000, 87566, 60808, 59598 ####[facility] [place] [address], [facility] Creatinine [Mass/Vol] 1.39 mg/dL High 0.60-1.20 [facility] Comment on above: Order Comment: No: D o not add to previous draw Performed By: #### 4 1000, 05745, 76941, 60172 ####[facility] [facility] [place] [address], [facility] eGFR- 45 ml/min/1.73sq m Abnormal >60 [facility] Comment on above: Order Comment: No: D o not add to previous draw Result Comment: Calc ulation may not be valid for patients over 70 years Performed By: #### 4 1000, 27295, 16311, 06991 ####[facility] [place] [address], [facility] eGFR- non- 37 ml/min/1.73sq m Abnormal >60 [facility] Comment on above: Order Comment: No: D o not add to previous draw Result Comment: Calc ulation may not be valid for patients over 70 years Performed By: #### 4 1000, 11804, 07490, 91439 ####[facility] [place] [address], [facility] Glucose [Mass/Vol] 91 mg/dL Normal 70-100 The [facility] Comment on above: Order Comment: No: D o not add to previous draw Performed By: #### 4 1000, 54204, 74985, 37237 ####[facility] [facility] [place] [address], [facility] Potassium [Moles/Vol] 4.4 mmol/L Normal 3.5-5.1 [facility] Comment on above: Order Comment: No: D o not add to previous draw Performed By: #### 4 1000, 92481, 56329, 85458 ####[facility] [place] [address], [place] Sodium [Moles/Vol] 133 mmol/L Low 136-145 [facility] Comment on above: Order Comment: No: D o not add to previous draw Performed By: #### 4 1000, 95491, 04267, 93007 ####[facility] [place] [address], [facility] Urea nitrogen [Mass/Vol] 24 mg/dL Normal 7-25 [facility] Comment on above: Order Comment: No: D o not add to previous draw Performed By: #### 4 1000, 08195, 52537, 25585 ####[facility] [place] [address], [facility] CBC W/DIFFon 04-22-2021 ABS IMM GRANS 0.0 10*3/uL Normal 0.0-0.2 [facility] Comment on above: Performed By: #### 5 0103 #### [facility] [address] [place] [address], [facility] ABS NEUTROPHILS 5.8 10*3/uL Normal 1.6-7.6 [facility] Comment on above: Performed By: #### 5 0103 #### [facility] [address] [place] [address], [facility] Basophils (Bld) [#/Vol] 0.1 10*3/uL Normal 0.0-0.2 [facility] Comment on above: Performed By: #### 5 0103 #### [facility] [address] [place] [address], [facility] Basophils/100 WBC (Bld) 0.6 % Normal 0.0-1.0 [facility] Comment on above: Performed By: #### 5 0103 #### [facility] [address] [place] [address], [facility] Eosinophils (Bld) [#/Vol] 0.2 10*3/uL Normal 0.0-0.5 [facility] Comment on above: Performed By: #### 5 0103 #### [facility] [address] [facility] [place] [address], [facility] Eosinophils/100 WBC (Bld) 2.7 % Normal 0.0-6.0 [facility] Comment on above: Performed By: #### 5 0103 #### [facility] [address] [facility] [place] [address], [facility] Erythrocyte distribution width (RBC) [Ratio] 13.0 % Normal 11.5-15.0 [facility] Comment on above: Performed By: #### 5 0103 #### [facility] [address] [facility] [place] [address], [facility] Hematocrit (Bld) [Volume fraction] 29.2 % Low 36.0-45.0 [facility] Comment on above: Performed By: #### 5 0103 #### [facility] [address] [facility]. [address] Hemoglobin (Bld) [Mass/Vol] 9.6 g/dL Low 12.0-15.0 [facility] Comment on above: Performed By: #### 5 0103 #### [facility] 3000 [facility]. [address] IMMATURE GRANS 0.5 % Normal 0.0-1.0 [facility] Comment on above: Performed By: #### 5 0103 #### [facility] 3000 [facility] [place] [address], [facility] Lymphocytes (Bld) [#/Vol] 1.1 10*3/uL Low 1.2-4.0 [facility] Comment on above: Performed By: #### 5 0103 #### [facility] 3000 [place] [address], [facility] Lymphocytes/100 WBC (Bld) 13.4 % Low 20.0-45.0 [facility] Comment on above: Performed By: #### 5 0103 #### [facility] 3000 [facility] [place] [address], [facility] MCH (RBC) [Entitic mass] 33.1 pg High 27.0-33.0 [facility] Comment on above: Performed By: #### 5 0103 #### [facility] 3000 [facility]. [address] MCHC (RBC) [Mass/Vol] 32.9 g/dL Normal 32.0-35.0 [facility] Comment on above: Performed By: #### 5 0103 #### [facility] [address] [place] [address], [facility] MCV (RBC) [Entitic vol] 100.7 fL High 82.0-98.0 [facility] Comment on above: Performed By: #### 5 0103 #### [facility] 3000 [facility] [place] [address], [facility] Monocytes (Bld) [#/Vol] 0.7 10*3/uL Normal 0.1-1.0 [facility] Comment on above: Performed By: #### 5 0103 #### [facility] [address] [facility] [place] [address], [facility] MONOS 9.1 % Normal 5.0-12.0 [facility] Comment on above: Performed By: #### 5 0103 #### [facility] 3000 [facility] [place] [address], [facility] Neutrophils/100 WBC (Bld) 73.7 % High 40.0-72.0 [facility] Comment on above: Performed By: #### 5 0103 #### [facility] 3000 [facility] [place] [address], [facility] Nucleated RBC/100 WBC (Bld) [Ratio] 0 % Normal 0-0 [facility] Comment on above: Performed By: #### 5 0103 #### [facility] [address] [place] [address], [facility] PLAT CNT 234 10*3/uL Normal 150-400 [facility] Comment on above: Performed By: #### 5 0103 #### [facility] [address] [place] [address], [facility] RBC (Bld) [#/Vol] 2.90 10*6/uL Low 3.80-5.00 The [facility] Comment on above: Performed By: #### 5 0103 #### [facility] [address] [place] [address], [facility] WBC (Bld) [#/Vol] 7.81 10*3/uL Normal 4.00-10.60 [facility] Comment on above: Performed By: #### 5 0103 #### [facility] [address] [place] [address], [facility] FERRITINon 04-22-2021 Ferritin [Mass/Vol] 74 ng/mL Normal 11-307 [facility] Comment on above: Order Comment: No: D o not add to previous draw Performed By: #### 8 4044, 38275, 25501, 72124, 96644, 09067 ####[facility] [place] [address], [facility] FOLATE SERUMon 04-22-2021 SERUM FOLATE 29.00 ng/mL Normal 6.60-1000.00 [facility] Comment on above: Order Comment: No: D o not add to previous draw Result Comment: Norm al range reflects World Health Organization International Standard Performed By: #### 8 4044, 60740, 66986, 57904, 63550, 39953 ####[facility] [facility] [place] [address], [facility] HAPTOGLOBINon 04-22-2021 HAPTOGLOBIN 302 mg/dL High 26-164 [facility] Comment on above: Order Comment: No: D o not add to previous draw Performed By: #### 3 0103 #### [facility] [address] [place], [place] [address] KNEE LEFT 1 OR 2 Son 04-22 KNEE LEFT 1 OR 2 S [facility] Department of Radiology [address] [place] [id number] Patient Name: LINDA NASCIMENTO : 1950 Sex: F Age: Race: White Pt. Location: [id number] Patient Status: I Ordered Date: 04/22/2021 2:30:00 AM Completed Date: 04/22/2021 02:52 AM Requesting Provider: GUNNAR CHRISTIANSON Attending Provider: ROBERTA VELA Report Copy To: Signs & Symptoms: Pain ( specify Location) History: See Comments Comments: evaluate for FX Exam: KNEE LEFT 1 OR 2 [facility] KNEE LEFT 1 OR 2 S 04/22/2021 2:52 AM CLINICAL INDICATIONS: Pain ( [...] acute fracture Approved by:Nithin Burnette04/22/2021 2:56 AM. IBoris,have reviewed the image(s) and agree with the findings in this report. Electronically signed: Boris Jara. Transcribed by: [email or web address], User Resident: NITHIN GARAY Electronically Signed by: BORIS JARA @ 04/22/2021 03:09 AM I personally read this/these film(s) with this resident Normal [facility] Comment on above: Order Comment: No: D o not add to previous draw [facility] 1 [facility] 2 [facility] Department of Radiology [address] [place] [id number] Patient Name: ILNDA NASCIMENTO : 1950 Sex: F Age: Race: White Pt. Location: [id number] Patient Status: I Ordered Date: 04/22/2021 2:30:00 AM Completed Date: 04/22/2021 02:52 AM Requesting Provider: GUNNAR CHRISTIANSON Attending Provider: ROBERTA VELA Report Copy To: Signs & Symptoms: Pain ( specify Location) History: See Comments Comments: evaluate for FX Exam: KNEE RIGHT 1 OR 2 [facility] KNEE RIGHT 1 OR 2 S 04/22/2021 2:52 AM CLINICAL INDICATIONS: Pain ( [...] report. Electronically signed: Boris Jara. Transcribed by: [email or web address], User Resident: NITIHN GARAY Electronically Signed by: BORIS JARA @ 04/22/2021 03:09 AM I personally read this/these film(s) with this resident Normal [facility] Comment on above: Order Comment: No: D o not add to previous draw LDH BLOODon 04-22-2021 LDH 232 Units/L Normal 140-271 [facility] Comment on above: Order Comment: No: D o not add to previous draw Performed By: #### 8 4044, 27276, 70949, 97992, 42417, 45759 ####[facility] LIVER BATTERYon 04-22-2021 Albumin [Mass/Vol] 3.9 g/dL Normal 3.5-5.7 [facility] Comment on above: Order Comment: No: D o not add to previous draw Performed By: #### 5 7307, 24279 #### [facility] [address] [facility] [place] [address], [facility] ALKALINE PHOSPH 74 IU/L Normal 34-104 [facility] Comment on above: Order Comment: No: D o not add to previous draw Performed By: #### 5 7307, 63904 #### [facility] [address] [place] [address], [facility] ALT [Catalytic activity/Vol] 9 U/L Normal 7-52 [facility] Comment on above: Order Comment: No: D o not add to previous draw Performed By: #### 5 7307, 09934 #### [facility] [address] [place] [address], [facility] AST [Catalytic activity/Vol] 19 U/L Normal 13-39 [facility] Comment on above: Order Comment: No: D o not add to previous draw Performed By: #### 5 7307, 27122 #### [facility] [address] [place] [address], [place] Bilirubin [Mass/Vol] 0.5 mg/dL Normal 0.3-1.0 [facility] Comment on above: Order Comment: No: D o not add to previous draw Performed By: #### 5 7307, 18730 #### [facility] [address] [place] [address], [facility] Bilirubin.direct [Mass/Vol] 0.1 mg/dL Normal 0.0-0.2 [facility] Comment on above: Order Comment: No: D o not add to previous draw Performed By: #### 5 7307, 88713 #### [facility] [address] [place] [address], [facility] Protein [Mass/Vol] 6.5 g/dL Normal 6.0-8.3 The [facility] Comment on above: Order Comment: No: D o not add to previous draw Performed By: #### 5 7307, 81949 #### [facility] [address] [place] [address], [facility] MAGNESIUM BLOODon 04-22-2021 Magnesium [Mass/Vol] 2.0 mg/dL Normal 1.9-2.7 [facility] Comment on above: Order Comment: No: D o not add to previous draw Performed By: #### 4 1000, 29766, 30064, 24178 ####[facility] [place] [address], [place] PERIPHERAL SMEARon 1 Nucleated RBC/100 WBC (Bld) [Ratio] 0 % Normal 0-0 [facility] Comment on above: Order Comment: No: D o not add to previous draw Performed By: #### 5 7307, 00293 #### [facility] [address] [place] [address], [facility] OTHER PS1 Macrocytic anemia with no significant RBC morphology. Normal [facility] Comment on above: Order Comment: No: D o not add to previous draw Performed By: #### 5 7307, 57534 #### [facility] [address] [place] [address], [facility] OTHER PS2 Check serum B12 and folate. Normal [facility] Comment on above: Order Comment: No: D o not add to previous draw Performed By: #### 5 7307, 29990 #### [facility] [address] [place] [address], [facility] OTHER PS3 Otherwise unremarkable leukocytes and platelets. Normal [facility] Comment on above: Order Comment: No: D o not add to previous draw Performed By: #### 5 7307, 93903 #### [facility] [address] OTHER PS4 Normal [facility] Comment on above: Order Comment: No: D o not add to previous draw Result Comment: Chec ked by Mayra Encinas M.D. Performed By: #### 5 7307, 55444 #### [facility] [address] [place] [address], [facility] PHOSPHORUS BLOODon 1 Phosphate [Mass/Vol] 3.4 mg/dL Normal 2.5-5.0 [facility] Comment on above: Order Comment: No: D o not add to previous draw Performed By: #### 5 7307, 34030 #### [facility] [address] [place] [id number], [facility] PROTHROMBIN TIMEon 1 INR Coag (PPP) [Relative time] 1.01 {INR} Normal 0.91-1.16 [facility] Comment on above: [...] CHEST 1995;108:231S-246S. Performed By: #### 5 7307, 88364 #### [facility] 3000 [facility]. [address] PT Coag (PPP) [Time] 13.3 s Normal 12.3-14.8 [facility] Comment on above: Order Comment: No: D o not add to previous draw Result Comment: ALL RESULTS MUST BE INTERPRETED WITH RESPECT TO BLOOD DRAWING ARTIFACT OR DILUTION ERROR OF ANTICOAGULANT AT THE TIME OF SAMPLING. Performed By: #### 5 7307, 09054 #### [facility] [address] RETICULOCYTE PANELon 11-11-2 021 ABSOLUTE RETICULOCYTE 0.0711 10*6/uL Normal 0.0250-0.1000 [facility] Comment on above: Order Comment: No: D o not add to previous draw Performed By: #### 5 7307, 41017 #### [facility] [address] [place] [address], [facility] IMMATURE RETICULOCYTE FRACTION 12.8 % Normal 2.0-16.0 [facility] Comment on above: Order Comment: No: D o not add to previous draw Performed By: #### 5 7307, 56124 #### [facility] [address] [place] [address], [facility] RETIC COUNT 2.37 % High 0.50-1.80 [facility] Comment on above: Order Comment: No: D o not add to previous draw Performed By: #### 5 7307, 62407 #### [facility] [address] RETICULOCYTE HEMOGLOBIN 37.5 pg High 28.0-36.0 [facility] Comment on above: Order Comment: No: D o not add to previous draw Performed By: #### 5 7307, 10366 #### [facility] [address] [facility]. [address] TIBC- INCLUDES IRONon 2020 FE SATURATION 16 % Low 20-[address] [facility] Comment on above: Order Comment: No: D o not add to previous draw Performed By: #### 8 4044, 01138, 27401, 83250, 50732, 86604 ####[facility]3000 [facility].[address] Iron [Mass/Vol] 54 ug/dL Normal 50-212 [facility] Comment on above: Order Comment: No: D o not add to previous draw Performed By: #### 8 4044, 07139, 93974, 43476, 52631, 58366 ####[facility]3000 [facility].[address] TIBC 332 mcg/dL Normal 250-450 [facility] Comment on above: Order Comment: No: D o not add to previous draw Performed By: #### 8 4044, 45492, 92724, 51138, 09472, 29832 ####[facility] UIBC 278 mcg/dL Normal 155-355 [facility] Comment on above: Order Comment: No: D o not add to previous draw Performed By: #### 8 4044, 21118, 13429, 84349, 66921, 29382 ####[facility]3000 [facility].[address] TSH3 WITH REFLEX FT4on 04-22 TSH 3RD GENERATION 1.72 uIU/mL Normal 0.34-5.60 [facility] Comment on above: Performed By: #### 8 4044, 57525, 21427, 51750, 09415, 27713 ####[facility]3000 [facility].[address] VITAMIN B12on 04-22-2021 Cobalamin (Vitamin B12) [Mass/Vol] 771 pg/mL Normal 180-914 [facility] Comment on above: Order Comment: No: D o not add to previous drawPt using restroom Result Comment: REFE RENCE RANGES: 180-914 pg/mL Normal 145-179 pg/mL Indeterminate <145 pg/mL Deficient Performed By: #### 8 4044, 63378, 81594, 91336, 34686, 18319 ####[facility] Vital Signs Date Time Vital Sign Value Performing Clinician Joseph landrum 10-06-2021 14:00-0400 Body height 165.1 cm Gunanr Fernandez Other [facility] Other 10-06-2021 14:00-0400 Body mass index (BMI) [Ratio] 40.77 kg/m2 Gunnar Fernandez Other [facility] Other 10-06-2021 14:00-0400 Body weight 111.13 kg Gunnar Fernandez Other [facility] Other Encounters Encounter Date Encounter Type Care Provider Facility Start: 10-31-2023 End: 10-31-2023 ambulatory ENOCH [facility] Start: 04-12-2023 End: 04-12-[address] [facility] Start: 03-20-2023 End: 03-21-2023 ambulatory Ирина Gibson MD Facility: [facility] Start: 02-01-2023 End: 02-01-2023 ambulatory [facility] Start: 01-23-2023 End: 01-24-2023 ambulatory Ирина Gibson MD Facility: [facility] Start: 01-09-2023 End: 01-10-2023 ambulatory Ирина Gibson MD Facility:[facility] Start: 12-30-2022 End: 12-30-2022 ambulatory [facility] Start: 12-12-2022 End: 12-13-2022 ambulatory Ирина Gibson MD Facility: [facility] Start: 10-25-2022 ambulatory LEÓN Freedi lity:H1 Start: 10-14-2022 End: 10-14-2022 ambulatory LEONIE COYLE Facility:[facility] Start: 09-23-2022 End: 09-24-2022 ambulatory LEÓN DIAS Facility:[facility] Start: 09-14-2022 End: 09-15-[address] . Facility:[facility]1 Start: 09-02-2022 End: 09-03-2022 ambulatory LEÓN DIAS Facility:[facility] Start: 08-08-2022 End: 08-09-[address] Carter Facility:[facility]1 Start: 07-18-2022 End: 07-19-2022 ambulatory LEÓN DIAS Facility:[facility]1 Start: 06-30-2022 End: 07-01-[address] MEHT[address] . Facility:[facility] Start: 06-09-2022 End: 06-10-[address] MEHTA . Facility:[facility] Start: 05-23-2022 End: 05-23-[address] MEHT[address] . Facility:[facility] Start: 05-02-2022 ambulatory LEÓN DIAS Faci lity:H1 Start: 04-23-2022 End: 04-23-[address] MARINO FERNANDEZ Facility:[facility]1 Start: 04-22-2022 End: 04-22-[address] AMBROCIO SPIVEY . Facility:[facility]1 Start: 04-21-2022 End: 04-22-[address] MEHT[address] . Facility:[facility]1 Start: 04-08-2022 End: 04-09-2022 ambulatory LEÓN Tejada [facility] Facility:H1 Start: 03-30-2022 End: 03-30-2022 ambulatory Rancho Chamorro Other [facility] Other Start: 03-30-2022 Telephone encounter Rancho BAKER [facility] [place] [facility] Start: 03-28-2022 End: 03-29-[address] . Facility:[facility]1 Start: 03-27-[address] . Facili ty:H1 Start: 03-24-2022 Office outpatient vi sit 25 minutes Rancho Chamorro [facility] [place] Start: 03-24-2022 End: 04-03-2022 ambulatory UNKNOWN PROVIDER [facility] Other Start: 03-16-2022 End: 03-16-2022 ambulatory Rancho Chamorro Other [facility] Other Start: 03-16-2022 Telephone encounter Rancho BAKER G [facility] Start: 03-11-2022 End: 03-12-2022 ambulatory LEÓN IDAS Facility:[facility]1 Start: 02-18-2022 End: 02-19-2022 ambulatory LEÓN DIAS Facility:[facility]1 Start: 02-11-2022 End: 02-12-[address] MEHT[address] . Facility:[facility]1 Start: 01-28-2022 End: 01-29-2022 ambulatory LEÓN DIAS Facility:[facility]1 Start: 01-11-2022 End: 01-12-[address]HT[address] . Facility:[facility]1 Start: 01-04-2022 End: 01-05-2022 [facility] Start: 12-23-2021 End: 12-23-2021 ambulatory Rancho Chamorro Other [facility] Other Start: 12-23-2021 Office outpatient vi sit 25 minutes Rancho DUNCAN [facility] [place] Start: 12-20-2021 End: 12-21-2021 ambulatory LEÓN DIAS Facility:H1 Start: 12-13-2021 End: 12-14-2021 Evaluation and management of inpatient DR A[facility] MEHTA . Facility:[facility]1 Start: 12-07-2021 Encounter for preprocedural cardiovascular examination [facility] Start: 12-06-2021 End: 12-06-2021 ambulatory LEÓN Tejada [facility] Facility:H1 Start: 12-05-2021 End: 12-05-[address] MEHT[address] . Facility:[facility]1 Start: 12-02-2021 End: 12-03-2021 ambulatory LEÓN Tejada [facility] Facility:H1 Start: 12-02-2021 End: 12-03-2021 Encounter for preprocedural cardiovascular examination LEÓN Tejada [facility] Facility:H1 Start: 11-30-2021 End: 12-01-2021 ambulatory LEÓN Tejada [facility] Facility:H1 Start: 11-29-2021 End: 11-29-2021 ambulatory MIRNA PARSONS . Facility:H1 Start: 11-17-2021 End: 11-17-2021 ambulatory Rancho Chamorro Other [facility] Other Start: 11-17-2021 Office outpatient vi sit 15 minutes Emilie Perez [facility] Start: 11-17-2021 Telephone encounter Rancho Hardwick [facility] [place] Start: 11-04-2021 End: 11-09-2021 Evaluation and management of inpatient [facility] Facility:[facility] Start: 11-04-2021 End: 11-04-2021 ambulatory Rancho Chamoror Other [facility] Other Start: 11-04-2021 Telephone encounter Rancho BAKER G [facility] Start: 11-03-2021 (Procedure) Short Rancho Chamorro [facility] Start: 11-03-2021 End: 11-03-2021 ambulatory Emilie Lisa [facility] Other Start: 11-03-2021 Office outpatient vi sit 25 minutes Emilie Ana [facility] Start: 10-28-2021 End: 10-28-2021 ambulatory Rancho Chamorro Other [facility] Other Start: 10-28-2021 Office outpatient vi sit 25 minutes Rancho Chamorro [facility] [place] Start: 10-26-2021 End: 10-26-2021 ambulatory Gunnar Fernandez Facility:[facility] Start: 10-07-2021 End: 10-07-2021 ambulatory Gunnar Fernandez Other [facility] Other Start: 10-07-2021 Telephone encounter Gunnar Fernandez [facility] Start: 10-06-2021 End: 10-06-2021 ambulatory Gunnar Fernandez [facility] Other Start: 10-06-2021 Office outpatient vi sit 15 minutes Gunnar Fernandez [facility] Start: 09-08-2021 End: 09-08-2021 ambulatory Gunnar Fernandez Other [facility] Other Start: 09-08-2021 Office outpatient vi sit 15 minutes Gunnar Fernandez [facility] Start: 04-22-2021 End: 04-29-2021 Evaluation and management of inpatient ROBERTA DANE Facility:[facility] Procedures Date Procedure Procedure Detail [...] now? 1 Result Comment: PERF ORMED BY: [facility] [place] [address] [facility] PRESSER MACHINE GERA CASTELLANOS M.D. Payers Date Payer Category Payer Medicaid [id number] 2022 Medicare 2022 Unknown 2021 Self-pay 1961 Medicare [id number] 1961 Self-pay [id number] 1959 Unknown [id number] 1950 Unknown [id number] 2.16.8 40.1.925151.3.579.2.647 1950 Unknown [id number] 2.16. 840.1.861924.3.579.2.732 1950 Unknown [id number] 2.16.84 0.1.767084.3.579.2.593 1948 Unknown [id number] 2.16.84 0.1.296063.3.579.2.593 1948 Unknown [id number] 2.16.84 0.1.207650.3.579.2.593 1948 Unknown [id number] 2.16.84 0.1.497543.3.579.2.593 1948 Unknown [id number] 2.16.84 0.1.767867.3.579.2.593 1948 Unknown [id number] 2.16.84 0.1.865098.3.579.2.593 1948 Unknown [id number] 2.16.84 0.1.251805.3.579.2.593 1948 Unknown [id number] 2.16.84 0.1.688003.3.579.2.593 1948 Unknown [id number] 2.16.84 0.1.140490.3.579.2.593 1948 Unknown [id number] 2.16.84 0.1.624525.3.579.2.593 1948 Unknown [id number] 2.16.84 0.1.451262.3.579.2.593 1948 Unknown [id number] 2.16.84 0.1.022051.3.579.2.593 1948 Unknown [id number] 2.16.84 0.1.355743.3.579.2.593 1948 Unknown [id number] 2.16.84 0.1.842113.3.579.2.593 1948 Unknown [id number] 2.16.84 0.1.724654.3.579.2.593 1948 Unknown [id number] 2.16.84 0.1.569983.3.579.2.593 1948 Unknown [id number] 2.16.84 0.1.052338.3.579.2.593 1948 Unknown [id number] 2.16.84 0.1.496418.3.579.2.593 1948 Unknown [id number] 2.16.84 0.1.614204.3.579.2.593 1948 Unknown [id number] 2.16.84 0.1.438991.3.579.2.593 1948 Unknown [id number] 2.16.84 0.1.321194.3.579.2.593 1948 Unknown [id number] 2.16.84 0.1.340335.3.579.2.593 1948 Unknown [id number] 2.16.84 0.1.306804.3.579.2.593 1948 Unknown [id number] 2.16.84 0.1.192769.3.579.2.593 1948 Unknown [id number] 2.16.84 0.1.004342.3.579.2.593 1948 Unknown [id number] 2.16.84 0.1.112551.3.579.2.593 1948 Unknown [id number] 2.16.84 0.1.551377.3.579.2.593 1948 Unknown [id number] 2.16.84 0.1.682311.3.579.2.593 1948 Unknown [id number] 2.16. 840.1.037390.3.579.2.196 1948 Unknown [id number] 2.16. 840.1.387329.3.579.2.196 1948 Unknown [id number] 2.16. 840.1.701818.3.579.2.196 1948 Unknown [id number] 2.16. 840.1.719934.3.579.2.196 Unknown [id number] 2.16.8 40.1.037637.3.579.2.531 Unknown [id number] 2.16.8 40.1.063649.3.579.2.531 Unknown [id number] 2.16.8 40.1.023857.3.579.2.531 Unknown [id number] 2.16.8 40.1.220090.3.579.2.531 Unknown [id number] 2.16.84 0.1.429073.3.579.2.593 Social History Date Type Detail Facility Sex Assigned At [facility] Other Clinical Notes 04-29-2021 to 10-31-2023 Note Date & Type Note Facility 10-31-2023 Note [place] Electrophysiology Consult Note [place] [facility] Reason for visit: 10/30/20 Patient here [...] with prior history of transferred from an [facility] to [facility] following a fall that she sustained. She was noted to be bradycardic and EKG at that time showed her to have bradycardia in the rate of 30s following admission to [facility] she was noted to have [...] anemia 04/23/2022 Sarcoidosis 11/18/2013 Sinus node dysfunction ([facility]) 04/23/2022 PSH: Past Surgical History: Procedure Laterality Date CARDIAC CATHETERIZATION CARDIAC PACEMAKER PLACEMENT COLONOSCOPY CT AORTA AND BILATERAL ILIOFEMORAL RUNOFF ANGIOGRAM W AND/OR WO IV CONTRAST 04/23/2022 CT AORTA AND BILATERAL ILIOFEMORAL RUNOFF ANGIOGRAM W AND/OR WO IV CONTRAST 04/23/[address] [facility] [address] CHEST ANGIOGRAM W AND/OR WO IV CONTRAST 04/23/2022 CT CHEST ANGIOGRAM W AND/OR WO IV CONTRAST 04/23/[address] [facility] [address] IMAGING TONSILLECTOMY SH: Social [...] on file Intimate Partner Violence: Unknown (08/03/2023) [place] Safety & Environment Fear of Current or Ex-Partner: Not on file Emotionally Abused: Not on file Physically Abused: Not on file Sexually Abused: Not on file Physically or Sexually Abused: Not on file Depression: Not on file Housing Stability: Not on file Utilities: Not on file Allergies: Allergies Allergen Reactions House Dust Unknown Pollen Extr (more content not included)... [facility] 04-12-2023 Note Patient here for 3 m [...] All other systems reviewed and are negative. [facility] 04-12-2023 Note Cardiovascular Medic [facility] SUBJECTIVE Chief Complaint Patient presents with [...] fall that lead to her admission to [facility]. She was noted to be bradycardic and EKG at that time showed her to have bradycardia in the rate of 30s following admission to [facility] she was noted to have [...] noted. In 04/2022, she was admitted to [facility] for falls, new onset a.fib, [...] Primary hypertension Sarcoidosis Coronary artery disease involving [place] coronary artery of chick[place] heart without angina pectoris Sinus node dysfunction [...] HFrEF (heart failure with reduced ejection fraction) (CMS/[facility]) Bradycardia Chest pain Sleep apnea Chronic anemia Past Medical History: Diagnosis Date Abnormal ECG Anxiety and depression 04/23/2022 Arrhythmia Atrial fibrillation ([facility]/HCC) Bipolar affective disorder ([facility]/HCC) 04/23/2022 CAD (coronary artery disease) 04/23/2022 Chronic kidney disease 10/26/2021 GERD (gastroesophageal reflux disease) 04/23/2022 Hyperlipidemia 10/26/2021 Hypertension 11/18/2013 Iron deficiency anemia 04/23/2022 Sarcoidosis 11/18/2013 Sinus node dysfunction ([facility]/HCC) 04/23/2022 Family History Problem Relation Name [...] or split. D (more content not included)... [facility] 02-01-2023 Note Patient here for 1 m o follow up labs. Spironolactone was stopped at last visit. She denies SOB, LE edema, chest pain, and bleeding on Eliquis. Review of Systems Musculoskeletal: Positive for arthritis, back pain, joint pain and muscle weakness. Neurological: Positive for weakness. All other systems reviewed and are negative. [facility] 02-01-2023 Note Cardiovascular Medic ine Progress Note SUBJECTIVE Follow up Linda Nascimento is a 72 y.o. year-old female with a past medical history including HTN, HLD, NSTEMI, HFrEF, and afib not on anticoagulation due to bleed, who presents today for follow up. She was previously transferred from an outside hospital to [facility] following a fall that she [...] Primary hypertension Sarcoidosis Coronary artery disease involving chick[place]om[place] indians[place] division coronary artery of [place] heart without angina pectoris Sinus node dysfunction (CMS/HCC) Iron deficiency anemia Anxiety and depression Bipolar affective disorder, currently depressed, mild (CMS/HCC) Gastroesophageal reflux disease without esophagitis Acute blood loss anemia Elevated troponin Elevated d-dimer Hypomagnesemia Atrial fibrillation ([facility]) Hematoma of right lower extremity Prolonged QT interval Recurrent falls Cellulitis of right lower extremity Closed fracture of pelvis with nonunion NSTEMI (non-ST elevated myocardial infarction) ([facility]) HFrEF (heart failure with reduced ejection fraction) ([facility]) Bradycardia Chest pain Sleep apnea Chronic anemia Past Medical History: Diagnosis Date Abnormal ECG Anxiety and depression 04/23/2022 Arrhythmia Atrial fibrillation ([facility]) Bipolar affective disorder ([facility]) 04/23/2022 CAD (coronary artery disease) 04/23/2022 Chronic kidney disease 10/26/2021 GERD (gastroesophageal reflux disease) 04/23/2022 Hyperlipidemia 10/26/2021 Hypertension 11/18/2013 Iron deficiency anemia 04/23/2022 Sarcoidosis 11/18/2013 Sinus node dysfunction ([facility]) 04/23/2022 Family History Problem Relation Name Age [...] morning.), Disp: 30 tablet, Rfl: 11 HYDROcodone-acetaminophen (Waves) 7.5-325 mg tablet, , Disp: , Rfl: [...] mEq ER tablet, (more content not included)... [facility] 12-30-2022 Note Cardiovascular Medic ine Progress Note SUBJECTIVE Follow up Linda Nascimento is a 72 y.o. year-old female with a past medical history including HTN, HLD, NSTEMI, HFrEF, and afib not on anticoagulation due to bleed, who presents today for follow up. She was previously transferred from an outside hospital to [facility] following a fall that she [...] Primary hypertension Sarcoidosis Coronary artery disease involving chick[place] indians[place] coronary artery of chick[place] heart without angina pectoris Sinus node dysfunction [...] 0.5 tablets (12.5 (more content not included)... [facility] 12-30-2022 Note Patient here for 3 m [...] is no longer on patient's med list. [facility] 03-30-2022 Evaluation note Encounter Date Diagnosis Assessment Notes Mar, Other spondylosis with radiculopathy, lumbar region (ICD-10 - M47.26) [facility] Other 10-13-2022 Evaluation note* Encounter Date Diagnosis [...] note writ ten by Summer Molina LPN, [employer]. Edited and approved by Dr. Rancho Chamorro MD. [facility] Other 10-05-2022 Evaluation note* Encounter Date Diagnosis Assessment Notes Treatment Notes Treatment Clinical Notes Mar, Other low back pain (ICD-10 - M54.59) [facility] Other 07-14-2022 Evaluation note* Encounter Date Diagnosis [...] note writ ten by Mika Villalobos MA, [employer]. Edited and approved by Dr. Rancho Chamorro MD. [facility] Other 06-08-2022 Evaluation note* Encounter Date Diagnosis [...] note writ ten by Mika Villalobos MA, [employer]. Edited and approved by Dr. Rancho Chamorro MD. [facility] Other 06-08-2022 Evaluation note* Encounter Date Diagnosis [...] four weeks, case discussed with Dr. Diaz [facility] has been contacted and will consult wound care. [facility] Other 05-25-2022 Evaluation note* Encounter Date Diagnosis [...] for Keflex BID x 14 days and Waves. Patient and sister instructed to contact office with any signs of infection or significant changes [facility] Other 05-19-2022 Evaluation note* Encounter Date Diagnosis [...] note writ ten by Summer Molina LPN, [employer]. Edited and approved by Dr. Rancho Chamorro MD. [facility] Other 04-28-2022 Evaluation note* Encounter Date Diagnosis Assessment Notes Treatment Notes Treatment Clinical Notes Sep, Pacemaker (ICD-10 - Z95.0) [facility] Other 04-27-2022 Evaluation note* Encounter Date Diagnosis [...] spinal osteoarthritis complication status (ICD-10 - M47.816) [facility] Other 03-30-2022 Evaluation note* Encounter Date Diagnosis [...] D. To call with questions or concerns. [facility] Other 11-18-2021 NoteMR#: [id number] [facility] Pt. Name: Linda Nascimento Admitted: 04/21/2021 Discharged: [...] The patient was subsequently transferred to the [facility] for higher level of care. [...] A/Billy Lozada MD Date Trans: 04/29/2021 12:17 P/roni [id number] cc: Leslie Arroyo M.D. [address] [place] [address]. Mailstop [id number] [facility] [address] M.D. [address] [facility] [place] [address]Ktj [facility] noteNo InformationNort [employer] Other History general Narrative - Reported* Type Description Date Medical History bipolar Medical History Arthritis Medical History high blood pressure Medical History chronic depression Medical History iron deficiency anemia Medical History kidney disease Medical History hyperlipidemia Medical History anxiety Medical History vitamin D deficiency Surgical History tonsillectomy Surgical History laparoscopy Hospitalization History depression [facility] Other Summary Purpose Family History No [...] DATE CREATED AUTHOR 05/30/2021 [facility] DATE CREATED AUTHOR AUTHOR'S ORGANIZ ATION 04/05/2022 [facility] DATE CREATED AUTHOR AUTHOR'S ORGANIZ ATION 07/16/2022 [facility] DATE CREATED AUTHOR AUTHOR'S ORGANIZ ATION 10/19/2022 [facility] DATE CREATED AUTHOR AUTHOR'S ORGANIZ ATION 03/27/2023 [facility] DATE CREATED AUTHOR AUTHOR'S ORGANIZ ATION 11/02/2023 [facility] DATE CREATED AUTHOR AUTHOR'S ORGANIZ ATION 05/08/2024 [facility] REASON FOR VISIT (unrecogniz ed section and content) DIRE PAIN IN RT LEG HIP AREA Check right Hip and legNo InformationFOLLOW UP AFTER TRANSFORAMINALRIGHT TRANSFORAMINAL EPIDURAL L4/CJMRI RESULTS PER JAKNo InformationLeft Knee Pain2 WK RECHECK1 MONTH RECHECKNo [...] BE BASED ON THE PRIMARY CLINICAL RECORDS. [employer] provides no warranty or guarantee of the accuracy or completeness of information in this document.
[2024-05-08 09:45] LABS: Basophils Absolute Auto 0.1 10^3/uL (0.0-0.1); Basophils Percent Auto 0.7 % (0.2-2.0); Eosinophils Absolute Auto 0.4 10^3/uL (0.0-0.7); Eosinophils Percent Auto 3.7 % (0.9-7.0); Hematocrit 35.6 % (36.0-48.0); Hemoglobin 11.4 g/dL (12.0-16.0); Immature Granulocytes Abs Auto 0.04 10^3/uL (0.00-0.03); Immature Granulocytes Pct Auto 0.4 % (0.0-0.5); Lymphocytes Absolute Auto 1.1 10^3/uL (1.2-3.8); Lymphocytes Percent Auto 11.4 % (20.5-60.0); Mean Corpuscular Hemoglobin 33.8 pg (26.7-34.0); Mean Corpuscular Volume 105.6 fL (81.0-99.0); Mean Platelet Volume 9.9 fL (9.5-13.5); Monocytes Absolute Auto 0.8 10^3/uL (0.3-0.8); Neutrophils Absolute Auto 7.6 10^3/uL (1.4-6.5); Neutrophils Percent Auto 75.8 % (43.0-75.0); Platelet Count 239 10^3/uL (150-450); Red Blood Count 3.37 10^6/uL (4.20-5.40); Red Cell Distribution Width 13.3 % (11.0-15.0)
[2024-05-08 10:35] LABS: Anion Gap 12.5; BUN Creatinine Ratio 11.8; Calcium 9.3 mg/dL (8.5-10.1); Carbon Dioxide 30.4 mmol/L (21.0-32.0); Chloride 102 mmol/L (98-107); Estimated GFR (African America 36 (>=60 mL/min/1.73m^2); Estimated GFR (Non-African Ame 29 (>=60 mL/min/1.73m^2); Glucose 116 mg/dL (74-106); Potassium 4.9 mmol/L (3.5-5.1); Sodium 140 mmol/L (136-145)
[2024-05-09 04:07] LABS: Rheumatoid Factor (RF) 17.7 IU/mL (<14.0)
[2024-05-09 14:08] LABS: Rapid Plasma Reagin, Quant Non Reactive titer (NonRea<1:1)
[2024-05-10 12:08] LABS: ANA Direct Negative (Negative)
[2024-05-10 14:08] LABS: QuantiFERON-TB Gold Plus Negative (Negative)
[2024-05-10 16:10] LABS: Angiotensin-Converting Enzyme 56 U/L (14-82)
[2024-05-13 08:07] LABS: Anti-MPO Antibodies <0.2 units (0.0-0.9); Anti-PR3 Antibodies <0.2 units (0.0-0.9); Cytoplasmic (C-ANCA) <1:20 titer (Neg:<1:20); Perinuclear (P-ANCA) <1:20 titer (Neg:<1:20)
== END 2024-05-08 08:55 | disposition home or self-care (01) ==
LOC: LAB 08:56
PROVIDERS: PCP Family Medicine
DX: H30.23 Posterior cyclitis, bilateral (principal)
CPT/HCPCS: 36415; 80048; 81374; 82164; 83516; 85025; 86037; 86038; 86431; 86480; 86592; 86777; 86778; 86780

== ENCOUNTER 2024-05-14 14:13 | Outpatient (OUT) | payer MEDICARE, MEDICAID, SELFPAY | END 2024-05-14 14:14 | disposition home or self-care (01) | LOC: WC 14:13 | PROVIDERS: PCP Family Medicine; Visit Provider Physician Assistant | DX: I87.313 Chronic venous hypertension (idiopathic) with ulcer of bilateral lower extremity (principal); L97.822 Non-pressure chronic ulcer of other part of left lower leg with fat layer exposed; L97.818 Non-pressure chronic ulcer of other part of right lower leg with other specified severity; L97.812 Non-pressure chronic ulcer of other part of right lower leg with fat layer exposed | CPT/HCPCS: 29580 ==

== ENCOUNTER 2024-06-03 11:34 | Outpatient (OUT) | payer MEDICARE, MEDICAID, SELFPAY | END 2024-06-03 11:35 | disposition home or self-care (01) | LOC: WC 11:35 | PROVIDERS: PCP Family Medicine; Visit Provider Physician Assistant | DX: I87.313 Chronic venous hypertension (idiopathic) with ulcer of bilateral lower extremity (principal); L97.822 Non-pressure chronic ulcer of other part of left lower leg with fat layer exposed; L97.818 Non-pressure chronic ulcer of other part of right lower leg with other specified severity; L97.812 Non-pressure chronic ulcer of other part of right lower leg with fat layer exposed | CPT/HCPCS: 29580 ==

== ENCOUNTER 2024-07-09 15:34 | Outpatient (OUT) | payer MEDICARE, MEDICAID, SELFPAY ==
--- OUTSIDE RECORDS SUMMARY | 2024-07-09 15:57 | XMS_ITS | CCD ---
Author Organization [facility] Care Team Providers Care Recreation Facility Attendant Name Role Phone ROBERTA VELA Admitting Unavailable [...] JAIMES Consulting Unavailable LEÓN DIAS Admitting Unavailable LENÓ DIAS Attending Unavailable JANINE Carter, DR DORADO [...] DR DORADO Primary Care Unavailable ISSA ., MIRAN Admitting Unavailable DAVID STOKES Consulting Unavailable SHERRY [...] HOY ., DR DORADO Primary Care Unavailable [place], DR RISHABH Martin Consulting Unavailable PAOLOANDER, PETER D Consulting Unavailable Arthur OLIVER, Ирина Loya Attending Unavailable Gieditis , Ирина Loya Attending Unavailable Giedraitis , Ирина Loya Attending Unavailable Giedraitis MD, Ирина Loya Attending Unavailable ENOCH FRANKEL Referring Unavailable ENOCH FRANKEL Attending Unavailable ENOCH FRANKEL Attending Unavailable ENOCH FRANKEL Referring Unavailable Allergies Allergy Classification Reported Allergen(s) Allergy Type Date of Onset Reaction(s) Facility (1 source) house dust allergenic extract; Translations: [HOUSE DUST] Drug Allergy 4 [facility] Repository (1 source) Pollen; Translations: [POLLEN EXTRACTS] Propensity to adverse reactions to drug (disorder) 4 [facility] Repository Medications Current Medications Medication Drug [...] Start: 10-28-2021 take 1 capsule by mo [facility] every twelve hours Gabapentin 300 MG 1 capsule Orally BID for 30 day(s) October, Active hydrALAZINE hydrochloride 50 mg oral tablet (13 sources) Arteriolar Vasodilator take 1 tablet by mouth every eight hours hydrALAZINE HCl 50 MG 1 tablet with food Orally Three times a day Active take 1 tablet by brynn every eight hours hydrALAZINE HCl 25 MG [...] Resolved: 10-07-2021 Chronic Congestive heart failure; nonhypertensive (4 sources) Acute on chronic systolic (congestive) heart failure; Translations: [ACUTE CHRON SYSTOLIC HEART FAILURE] Onset: 09-14-2022 Chronic Deficiency and other anemia (1 source) [...] region] Episodic Other aftercare (1 source) Other senior living (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; Translations: [OTH MANAGER OF CLINICAL CURRENT DRUG THERAPY] Onset: 10-18-2022 Episodic Other [...] Resolved: 2 Episodic Other aftercare (1 source) correction (current) use of antibiotics; Translations: [MANAGER OF CLINICAL CURRENT USE ANTIBIOTICS] Onset: 2 Episodic Other aftercare (1 source) emt intermediate (current) use of aspirin; Translations: [MANAGER OF CLINICAL CURRENT USE OF ASPIRIN] Onset: 2 Episodic Other aftercare (1 source) correction (current) use of insulin; Translations: [MANAGER OF CLINICAL CURRENT USE OF INSULIN] Onset: 2 Episodic [...] Value Interpretation Reference Range Facility Office Visiton 05-21-2024 Follow-up visit [id number] Linda Nascimento 1950 F Date Provider Department Center 05/21/2024 ENOCH RAMIREZ CARD [facility] Family History Problem Relation Age of Onset Lung cancer Mother Stroke Father Family Status - Relation Status Age at Mother Father Level of Service:26220 [place] OFFICE/OUTPATIENT ESTABLISHED LOW MDM 20 MIN Normal [facility] Herpes Simplex Virus By PCRo n 05-07-2024 HSV 1 Subtype by PCR Not detected Normal [facility] Comment on above: Order Comment: CALL doctor [id number] tel. [phone], FAX [phone] CALL doctor LB474 tel. [phone], FAX [phone] Result Comment: The specimen submitted for testing did not meet ARUP submission guidelines. Testing was performed on a specimen that did not meet validated specimen type requirements. Performance characteristics of this assay may be affected. Interpret results with caution. Please refer to the [employer] Test Directory for information on specimen acceptability: [email or web address].VideoStep/testing Performed By: #### A 0095 #### [facility] [address] [place] [id number] HSV 2 Subtype by PCR Not detected Normal [facility] Comment on above: Order Comment: CALL doctor LB474 tel. [phone], FAX [phone] CALL doctor LB474 tel. [phone], FAX [phone] Result Comment: The specimen submitted for testing did not meet ARUP submission guidelines. Testing was performed on a specimen that did not meet validated specimen type requirements. Performance characteristics of this assay may be affected. Interpret results with caution. Please refer to the [employer] Test Directory for information on specimen acceptability: [email or web address].VideoStep/testing INTERPRETIVE INFORMATION: HSV-1 and HSV-2 Subtype by PCR A negative result does not rule out the presence of PCR inhibitors in the patient specimen or test-specific nucleic acid in concentrations below the level of detection by this test. This test was developed and its performance characteristics determined by [facility]. It has not been cleared or approved by the [place] Food and Drug Administration. This test was performed in a CLIA certified laboratory and is intended for clinical purposes. Performed By: [facility] [address] [place] [id number] Pipe Organ Mechanic Apprentice: Rodrigo Milner MD, PhD CLIA Number: [id number] Performed By: #### A 0095 #### [facility] [address] [place] [address] Rejection Notificationon Reason see below [facility] Comment on above: Order Comment: CALL doctor LB474 tel. [phone], FAX [phone] CALL doctor LB474 tel. [phone], FAX [phone] Result Comment: Unab le to perform testing; specimen quantity not sufficient. To perform testing the specimen will need to be recollected. QNS Performed By: #### R EJEC #### [facility] [address] [place] [address] Rejected Test [id number] [facility] Comment on above: Order Comment: CALL doctor LB474 tel. [phone], FAX [phone] CALL doctor LB474 tel. [phone], FAX [phone] Performed By: #### R EJEC #### [facility] [address] [place] [address] [facility]UP Miscellaneous test 1on 05-03-2024 [facility] Prompt [id number] [facility] Comment on above: Order Comment: CALL doctor LB474 tel. [phone], FAX [phone] Performed By: #### 9 7163 #### [facility] [address] [place] [address] Culture, Wound Aerobic, Anae robicon 05-03-2024 Culture, Wound Aerobic, Anaerobic ORDER#: [id number] ORDERED BY: MICHELLE QUINTERO SOURCE: Face Left eye ocular fluid COLLECTED: 05/03/24 07:26 ANTIBIOTICS AT [place].: RECEIVED : 05/03/24 07:39 CALL doctor LB474 tel. [phone], FAX [phone] Culture, Wound Aerobic, Anaerobic FINAL 05/08/24 08:22 Direct Exam: NO NEUTROPHILS SEEN Direct Exam: NO ORGANISMS SEEN Cult,Aerobe/Anaerobe: NO GROWTH 5 DAYS Performed at [facility] [address] [place] [address] ([phone] [facility] Comment on above: Performed By: #### I CWAN #### [facility] [address] [place] [id number] Herpes Simplex Virus By PCRo n 05-03-2024 Herpes Simplex Virus Subtype Source eye [facility] Comment on above: Order Comment: CALL doctor LB474 tel. [phone], FAX [phone] CALL doctor LB474 tel. [phone], FAX [phone] Result Comment: ocul ar fld Performed By: #### A 0095 #### [facility] [address] [place] [id number] Office Visiton 10-31-2023 Follow-up visit [id number] Linda Nascimento 1950 F Date Provider Department Center 10/31/2023 ENOCH RAMIREZ Family History Problem Relation Age of Onset Lung cancer Mother Stroke Father Family Status - Relation Status Age at Mother Father Level of Service:56378 [place] OFFICE/OUTPATIENT ESTABLISHED MOD MDM 30 MIN [facility] 36on 10-17-2023 36 Let's keep her medications the same. Thanks [facility] 36 Please ask what her current weight is. [facility] 36on 08-01-2023 36 Please confirm what [...] day or 3 times a week. Thanks [facility] 36on 07-27-2023 36 Regarding note from [facility] with patient's weights and BP's and mention [...] Thanks! Printed and faxed back to [facility] CBC AUTO DIFFon 10-14-2022 BASO # 0.1 103/ul Normal 0.0-0.1 [facility] Comment on above: Performed By: #### C BC ####[facility] [address] [place] [address]Dr. Slick Broderick Basophils/100 WBC (Bld) 0.6 % Normal 0.2-2.[address] [facility] Comment on above: Performed By: #### C BC ####[facility] [address] [place], [place] [address]DrEmma Broderick EO # 0.4 103/ul Normal 0.0-0.7 [facility] Comment on above: Performed By: #### C BC ####[facility] Am[address]uz[address] [place], [place] [address]DrEmma Broderick Eosinophils/100 WBC (Bld) 3.9 % Normal 0.9-7.[address] [facility] Comment on above: Performed By: #### C BC ####[facility] [address] [place], [place] [address]Dr. Slick Broderick Erythrocyte distribution width (RBC) [Ratio] 13.2 % Normal 11.0-15.0 [facility] Comment on above: Performed By: #### C BC ####[facility] [address] [place], [place] [address]Dr. Slick Broderick Hematocrit (Bld) [Volume fraction] 32.4 % Critically low 36.0-48.[address] [facility] Comment on above: Performed By: #### C BC ####[facility] [address] [place], [place] [address]Dr. Slick Broderick Hemoglobin (Bld) [Mass/Vol] 10.4 g/dL Critically low 12.0-16.0 [facility] Comment on above: Performed By: #### C BC ####[facility] [address] [place], [place] [address]DrEmma Broderick IG # 0.19 10e3/ul Critically high 0.00-0.03 [facility] Comment on above: Performed By: #### C BC ####[facility] [address] [place] [address]DrEmma Broderick IG % 2.1 % Critically high 0.0-0.5 [facility] Comment on above: Performed By: #### C BC ####[facility] [address] [place] [address]DrEmma Broderick LYMPH # 1.0 103/ul Critically low 1.2-3.8 [facility] Comment on above: Performed By: #### C BC ####[facility] [address] [place] [address]DrEmma Broderick Lymphocytes/100 WBC (Bld) 11.4 % Critically low 20.5-60.0 [facility] Comment on above: Performed By: #### C BC ####[facility] Dr[address]jb[address] [place], [place] [address]DrEmma Broderick MANUAL DIFF REQ NO Normal [facility] Comment on above: Performed By: #### C BC ####[facility] [address] [place], [place] [address]DrEmma Broderick MCH (RBC) [Entitic mass] 32.0 pg Normal 26.7-34.0 [facility] Comment on above: Performed By: #### C BC ####[facility] [address] [place], [place] [address]DrEmma Broderick MCHC (RBC) [Mass/Vol] 32.1 g/dL Normal 29.9-35.[address] [facility] Comment on above: Performed By: #### C BC ####[facility] [address] [place], [place] [address]DrEmma Broderick MCV (RBC) [Entitic vol] 99.7 fL Critically high 81.0-99.0 [facility] Comment on above: Performed By: #### C BC ####[facility] [address]wr[address] [place], [place] [address]DrEmma Broderick MONO # 1.0 103/ul Critically high 0.3-0.8 [facility] Comment on above: Performed By: #### C BC ####[facility] [address] [place] [address]Dr. Slick Broderick Monocytes/100 WBC (Bld) 10.8 % Normal 1.7-12.[address] [facility] Comment on above: Performed By: #### C BC ####[facility] [address] [place] [address]Dr. Slick Broderick NEUT # 6.4 103/ul Normal 1.4-6.[address] [facility] Comment on above: Performed By: #### C BC ####[facility] [address] [place] [address]Dr. Slick Broderick Neutrophils/100 WBC (Bld) 71.2 % Normal 43.0-75.[address] [facility] Comment on above: Performed By: #### C BC ####[facility] [address] [place], [place] [address]Dr. Slick Broderick Platelet mean volume (Bld) [Entitic vol] 9.8 fL Normal 9.5-13.[address] [facility] Comment on above: Performed By: #### C BC ####[facility] [address] [place] [address]Dr. Slick Broderick PLT 174 103/ul Normal 150-[address] [facility] Comment on above: Performed By: #### C BC ####[facility] [address] [place] [address]Dr. Slick Broderick RBC 3.25 106/ul Critically low 4.20-5.40 [facility] Comment on above: Performed By: #### C BC ####[facility] [address] [place] [id number]. Slick Broderick WBC 8.9 103/ul Normal 4.0-11.[address] [facility] Comment on above: Performed By: #### C BC ####[facility] [address] [place], [place] [address]Dr. Slick Broderick CRPon 10-14-2022 CRP 0.5 mg/dL Normal <=1.0 [facility] Comment on above: Performed By: #### C RP, BMP ####[facility] [address] [place] [address]Dr. Slick Broderick D-DIMERon 10-14-2022 D-DIMER 0.86 mg/L FEU Critically high <=0.59 [facility] Comment on above: Performed By: #### D DIM ####[facility] [address] [place] [address]Dr. Slick Broderick D-DIMER COMMENTS SEE BELOW Normal [facility] Comment on above: Result Comment: Incr eases [...] generalized hospitalization. Performed By: #### D DIM ####[facility] [address] [place], [place] [address]Dr. Slick Broderick PROF CHEM 8 (BAS METB)on Anion gap [Moles/Vol] 10.1 mmol/L Normal [facility] Comment on above: Performed By: #### C RP, BMP ####[facility] [address] [place] [address]Dr. Slick Broderick Calcium [Mass/Vol] 9.3 mg/dL Normal 8.5-10.1 [facility] Comment on above: Performed By: #### C RP, BMP ####[facility] [address] [place] [address]Dr. Slick Broderick Chloride [Moles/Vol] 98 mmol/L Normal 98-[address] [facility] Comment on above: Performed By: #### C RP, BMP ####[facility] [address] [place] [address]Dr. Slick Broderick CO2 [Moles/Vol] 30.3 mmol/L Normal 21.0-32.0 [facility] Comment on above: Performed By: #### C RP, BMP ####[facility] [address] [place], [place] [address]Dr. Slick Broderick Creatinine [Mass/Vol] 2.15 mg/dL Critically high 0.55-1.02 [facility] Comment on above: Performed By: #### C RP, BMP ####[facility] [address] [place], [place] [address]Dr. Slick Broderick EGFR-AF [place] 27 mL/min/1.73m2 Critically low >=60 [facility] Comment on above: Performed By: #### C RP, BMP ####[facility] [address] [place], [place] [address]Dr. Meaganwendie Broderick EGFR-NON AF [place] 22 mL/min/1.73m2 Critically low >=60 [facility] Comment on above: Performed By: #### C RP, BMP ####[facility] [address] [place], [place] [address]Dr. Meaganwendie Broderick Glucose [Mass/Vol] 116 mg/dL Critically high 74-106 [facility] Comment on above: Performed By: #### C RP, BMP ####[facility] [address]we[address] [place], [place] [address]Dr. Meaganwendie Broderick Potassium [Moles/Vol] 4.4 mmol/L Normal 3.5-5.1 [facility] Comment on above: Performed By: #### C RP, BMP ####[facility] Z[address] [place], [place] [address]Dr. Slick Broderick Sodium [Moles/Vol] 134 mmol/L Critically low 136-145 Th [facility] Comment on above: Performed By: #### C RP, BMP ####[facility] [address] [place], [place] [address]Dr. Slick Broderick Urea nitrogen [Mass/Vol] 33.0 mg/dL Critically high 7.0-18.0 [facility] Comment on above: Performed By: #### C RP, BMP ####[facility] [address] [place] [address]Dr. Slick Broderick Urea nitrogen/Creatinine [Mass ratio] 15.3 mg/mg Normal [facility] Comment on above: Performed By: #### C RP, BMP ####[facility] [address] [place] [address]Dr. Slick Broderick US JENNY DOP LEG LTon 10-15-19 23 US JENNY DOP LEG LT Normal [facility] XR FEMUR LTon 10-14-2022 XR FEMUR LT Normal [facility] ECHOCARDIO M/2D COMPLETEon 0 09-14-2022 ECHOCARDIO M/2D COMPLETE Normal [facility] PRBC LEUKOREDUCEDon 06-09-20 22 PRBC LEUKOREDUCED Normal [facility] Comment on above: Performed By: #### P RBC ####[facility] [address] [place], [place] [address]Dr. Slick Broderick BNPon 04-23-2022 Natriuretic peptide B (Bld) [Mass/Vol] 49717.0 pg/mL Critically high <=900.[address] [facility] Comment on above: Performed By: #### C MP, CMADM, BNP ####[facility] [address] [place] [address]Dr. Slick Broderick CARDIAC REYMUNDO ADMITon 022 CK [Catalytic activity/Vol] 121 U/L Normal 26-192 [facility] Comment on above: Performed By: #### C MP, CMADM, BNP ####[facility] [address] [place] [address]Dr. Slick Broderick CK.MB [Mass/Vol] 5.67 ng/mL Critically high <=3.[address] [facility] Comment on above: Performed By: #### C MP, CMADM, BNP ####[facility] [address] [place] [address]Dr. Slick Broderick HSTROP 3667.9 pg/mL Critically high 4.0-51.3 [facility] Comment on above: Result Comment: CUT- OFF POINTS HAVE BEEN ESTABLISHED BASED ON THE FOURTH UNIVERSAL DEFINITIONS OF MYOCARDIALINFARCTION. THE UPPER REFERENCE LIMIT (URL) OF TROPONIN, DEFINED THE 99TH PERCENTILE OFcTnI DISTRIBUTION IN A REFERENCE POPULATION, HAS BEEN CONFIRMED THE DECISION THRESHOLDFOR PR DIAGNOSIS. Performed By: #### C MP, CMADM, BNP ####[facility] [address] [place] [address]Dr. Slick Broderick NEHEMIAH 225 ng/mL Critically high 9-82 [facility] Comment on above: Performed By: #### C MP, CMADM, BNP ####[facility] [address] [place] [address]Dr. Meaganwendie Broderick CBC AUTO DIFFon 04-23-2022 BASO # 0.0 103/ul Normal 0.0-0.[address] [facility] Comment on above: Performed By: #### C BC ####[facility] [address] [place], [place] [address]Dr. Slick Broderick Basophils/100 WBC (Bld) 0.3 % Normal 0.2-2.[address] [facility] Comment on above: Performed By: #### C BC ####[facility] X[address] [place], [place] [address]Dr. Meaganwendie Davie EO # 0.0 103/ul Normal 0.0-0.[address] [facility] Comment on above: Performed By: #### C BC ####[facility] [address] [place], [place] [address]Dr. Slick Broderick Eosinophils/100 WBC (Bld) 0.3 % Critically low 0.9-7.[address] [facility] Comment on above: Performed By: #### C BC ####[facility] [address]qa[address] [place], [place] [address]Dr. Slick Broderick Erythrocyte distribution width (RBC) [Ratio] 14.0 % Normal 11.0-15.[address] [facility] Comment on above: Performed By: #### C BC ####[facility] [address] [place], [place] [address]Dr. Meaganwendie Davie Hematocrit (Bld) [Volume fraction] 21.9 % Critically low 36.0-48.[address] [facility] Comment on above: Performed By: #### C BC ####[facility] [address] [place] [address]Dr. Slick Broderick Hemoglobin (Bld) [Mass/Vol] 7.1 g/dL Critically low 12.0-16.[address] [facility] Comment on above: Performed By: #### C BC ####[facility] [address] [place] [address]Dr. Slick Broderick IG # 0.04 10e3/ul Critically high 0.00-0.03 [facility] Comment on above: Performed By: #### C BC ####[facility] [address] [place] [address]Dr. Slick Broderick IG % 0.4 % Normal 0.0-0.[address] [facility] Comment on above: Performed By: #### C BC ####[facility] [address] [place] [address]Dr. Slick Broderick LYMPH # 0.8 103/ul Critically low 1.2-3.8 [facility] Comment on above: Performed By: #### C BC ####[facility] [address] [place] [address]Dr. Slick Broderick Lymphocytes/100 WBC (Bld) 7.7 % Critically low 20.5-60.[address] [facility] Comment on above: Performed By: #### C BC ####[facility] [address] [place] [address]Dr. Slick Broderick MANUAL DIFF REQ NO Normal [facility] Comment on above: Performed By: #### C BC ####[facility] [address] [place] [address]Dr. Slick Broderick MCH (RBC) [Entitic mass] 29.3 pg Normal 26.7-34.[address] [facility] Comment on above: Performed By: #### C BC ####[facility] [address] [place], [place] [address]Dr. Slick Broderick MCHC (RBC) [Mass/Vol] 32.4 g/dL Normal 29.9-35.[address] [facility] Comment on above: Performed By: #### C BC ####[facility] [address] [place] [address]Dr. Slick Broderick MCV (RBC) [Entitic vol] 90.5 fL Normal 81.0-99.[address] [facility] Comment on above: Performed By: #### C BC ####[facility] [address]sa[address] [place] [address]Dr. Slick Broderick MONO # 1.0 103/ul Critically high 0.3-0.8 [facility] Comment on above: Performed By: #### C BC ####[facility] [address]rebi[address] [place], [place] [address]Dr. Slick Broderick Monocytes/100 WBC (Bld) 9.6 % Normal 1.7-12.[address] [facility] Comment on above: Performed By: #### C BC ####[facility] [address]qt[address] [place], [place] [address]Dr. Slick Broderick NEUT # 8.6 103/ul Critically high 1.4-6.5 [facility] Comment on above: Performed By: #### C BC ####[facility] [address]ccw[address] [place], [place] [address]Dr. Slick Broderick Neutrophils/100 WBC (Bld) 81.7 % Critically high 43.0-75.[address] [facility] Comment on above: Performed By: #### C BC ####[facility] [address] [place], [place] [address]Dr. Slick Broderick Platelet mean volume (Bld) [Entitic vol] 10.0 fL Normal 9.5-13.[address] [facility] Comment on above: Performed By: #### C BC ####[facility] [address] [place], [place] [address]Dr. Slick Broderick PLT 195 103/ul Normal 150-[address] [facility] Comment on above: Performed By: #### C BC ####[facility] [address]ior[address] [place], [place] [address]Dr. Slick Broderick RBC 2.42 106/ul Critically low 4.20-5.40 [facility] Comment on above: Performed By: #### C BC ####[facility] [address] [place], [place] [address]Kh. Slick Broderick WBC 10.5 103/ul Normal 4.0-11.0 [facility] Comment on above: Performed By: #### C BC ####[facility] [address] [place], [place] [address]Yv. S[address] CT HEAD WO CONon 04-23-2022 CT HEAD WO CON Normal [facility] CULTURE BLOODon 04-23-2022 Microscopic examination of blood, culture Culture Observations: NO GROWTH AT [address] [facility] Comment on above: Performed By: #### B LDCX2 ####[facility] [address] [place], [place] [address]Az. Slick Broderick Microscopic examination of blood, culture Culture Observations: NO GROWTH AT [address] [facility] Comment on above: Performed By: #### B LDCX1 ####[facility] [address] [place], [place] [address]Hw. Slick Broderick Covid-19 PCR (CVDTBH)on 04-12 SARS-CoV-2 (COVID-19) RNA DONNIE+probe Ql (Unsp spec) Not detected Normal NOT DETECTED [facility] Comment on above: Result Comment: When [...] for this test is supported by the [place] of [employer] and Human Service's declaration that [...] be used). Performed By: #### C VDTBH ####[facility] [address] [place] [address]Dr. Slick Broderick LACTATE/LACTIC ACIDon 2021 Lactate [Moles/Vol] 1.2 mmol/L Normal 0.4-1.9 [facility] Comment on above: Performed By: #### L ACT ####[facility] [address]tr[address] [place] [address]Dr. Slick Broderick PROF 14(COMP METB)on 022 Albumin [Mass/Vol] 2.9 g/dL Critically low 3.4-5.0 Th [facility] Comment on above: Performed By: #### C MP, CMADM, BNP ####[facility] [address] [place] [address]Dr. Slick Broderick Albumin/Globulin [Mass ratio] 0.9 {ratio} Normal [facility] Comment on above: Performed By: #### C MP, CMADM, BNP ####[facility] [address]nefd[address] [place] [address]Dr. Slick Broderick ALP [Catalytic activity/Vol] 88 U/L Normal 46-116 [facility] Comment on above: Performed By: #### C MP, CMADM, BNP ####[facility] Ejkqpomulu[address] [place] [address]Dr. Slick Broderick ALT [Catalytic activity/Vol] 22 U/L Normal 14-59 [facility] Comment on above: Performed By: #### C MP, CMADM, BNP ####[facility] Jqxltzfduz[address] [place] [address]Dr. Slick Broderick Anion gap [Moles/Vol] 14.0 mmol/L Normal [facility] Comment on above: Performed By: #### C MP, CMADM, BNP ####[facility] Ymigeyiyfu[address] [place] [address]Dr. Slick Broderick AST [Catalytic activity/Vol] 26 U/L Normal 15-37 [facility] Comment on above: Performed By: #### C MP, CMADM, BNP ####[facility] [address]wr[address] [place] [address]Dr. Slick Broderick Bilirubin [Mass/Vol] 0.5 mg/dL Normal 0.2-1.0 [facility] Comment on above: Performed By: #### C MP, CMADM, BNP ####[facility] [address]fe[address]puau[address] [place] [address]Dr. Slick Broderick Calcium [Mass/Vol] 9.7 mg/dL Normal 8.5-10.1 [facility] Comment on above: Performed By: #### C MP, CMADM, BNP ####[facility] Iiuuxodrzj[address] [place] [address]Dr. Slick Broderick Chloride [Moles/Vol] 105 mmol/L Normal 98-[address] [facility] Comment on above: Performed By: #### C MP, CMADM, BNP ####[facility] Swnaaretjp[address] [place], [place] [address]Dr. Slick Broderick CO2 [Moles/Vol] 27.0 mmol/L Normal 21.0-32.0 [facility] Comment on above: Performed By: #### C MP, CMADM, BNP ####[facility] Atkazbnmru[address] [place], [place] [address]Dr. Slick Broderick Creatinine [Mass/Vol] 1.57 mg/dL Critically high 0.55-1.02 [facility] Comment on above: Performed By: #### C MP, CMADM, BNP ####[facility] [address]sp[address]qyphk[address] [place] [address]Dr. Slick Broderick EGFR-AF [place] 39 mL/min/1.73m2 Critically low >=[address] [facility] Comment on above: Performed By: #### C MP, CMADM, BNP ####[facility] [address]xndmzwfhr[address] [place], [place] [address]Dr. Slick Broderick EGFR-NON AF [place] 32 mL/min/1.73m2 Critically low >=[address] [facility] Comment on above: Performed By: #### C MP, CMADM, BNP ####[facility] [address]hrgkxcp[address] [place] [address]Dr. Slick Broderick Globulin (S) [Mass/Vol] 3.2 g/dL Normal [facility] Comment on above: Performed By: #### C MP, CMADM, BNP ####[facility] Oxmrmossjz[address] [place] [address]Dr. Slick Broderick Glucose [Mass/Vol] 128 mg/dL Critically high 74-106 [facility] Comment on above: Performed By: #### C MP, CMADM, BNP ####[facility] Jnualkspgv[address] [place] [address]Dr. Slick Broderick Potassium [Moles/Vol] 4.0 mmol/L Normal 3.5-5.1 [facility] Comment on above: Performed By: #### C MP, CMADM, BNP ####[facility] Noxsdexobn32[address] [place] [address]Dr. Slick Broderick Protein [Mass/Vol] 6.1 g/dL Critically low 6.4-8.2 Th [facility] Comment on above: Performed By: #### C MP, CMADM, BNP ####[facility] Ephrizfntx[address] [place], [place] [address]Dr. Slick Broderick Sodium [Moles/Vol] 142 mmol/L Normal 136-145 [facility] Comment on above: Performed By: #### C MP, CMADM, BNP ####[facility] Fpwzgqebjv6917[address] [place], [place] [address]Dr. Slick Broderick Urea nitrogen [Mass/Vol] 34.0 mg/dL Critically high 7.0-18.0 [facility] Comment on above: Performed By: #### C MP, CMADM, BNP ####[facility] Bmknadujoo[address] [place] [address]Dr. Slick Broderick Urea nitrogen/Creatinine [Mass ratio] 21.7 mg/mg Normal [facility] Comment on above: Performed By: #### C MP, CMADM, BNP ####[facility] Jmyckzuslw[address] [place] [address]Dr. Slick Broderick PROTIMEon 04-23-2022 INR Coag (PPP) [Relative time] 1.10 {INR} Normal [facility] Comment on above: Performed By: #### P T, PTT ####[facility] [address]zdhc[address] [place] [address]Dr. Slick Broderick INR GUIDELINES SEE BELOW Normal [facility] Comment on above: Result Comment: EDMUND RED INR: 2.0 - 3.0 CONDITIONS NOT LISTED BELOW 2.5 - 3.5 FOR PROSTHETIC HEART VALVE REPLACEMENT 2.5 - 3.5 RECURRENT THROMBOSIS Performed By: #### P T, PTT ####[facility] Wdkqjefszs[address] [place], [place] [address]Dr. Slick Davie PT Coag (PPP) [Time] 11.8 s Critically high 9.0-11.[address] [facility] Comment on above: Performed By: #### P T, PTT ####[facility] Qkhupatfoo9387[address] [place], [place] [address]Dr. Slick Davie PTTon 04-23-2022 aPTT Coag (Bld) [Time] 27.7 s Normal 22.3-36.[address] [facility] Comment on above: Performed By: #### P T, PTT ####[facility] Uhusgckrgf6[address] [place], [place] [address]Dr. Slick Davie TYPE AND SCREENon 04-23-2022 TYPE AND SCREEN Negative Normal [facility] Comment on above: Performed By: #### T NS ####[facility] Jmspmwopkm73[address] [place], [place] [address]Dr. Slick Broderick XR CHEST 1 Von 04-23-2022 XR CHEST [address] [facility] CBC AUTO DIFFon 04-22-2022 BASO # 0.0 103/ul Normal 0.0-0.[address] [facility] Comment on above: Performed By: #### C BC ####[facility] Yyjmtcutvg5[address] [place], [place] [address]Dr. Meaganwendie Broderick Basophils/100 WBC (Bld) 0.3 % Normal 0.2-2.[address] [facility] Comment on above: Performed By: #### C BC ####[facility] Kxpterabzr60[address] [place], [place] [address]Dr. Slick Broderick EO # 0.1 103/ul Normal 0.0-0.[address] [facility] Comment on above: Performed By: #### C BC ####[facility] [address]hepure[address] [place] [phone]. Slick Broderick Eosinophils/100 WBC (Bld) 1.4 % Normal 0.9-7.0 [facility] Comment on above: Performed By: #### C BC ####[facility] K[address]azzfawy[address] [place] [phone]. Slick Broderick Erythrocyte distribution width (RBC) [Ratio] 13.8 % Normal 11.0-15.0 [facility] Comment on above: Performed By: #### C BC ####[facility] C[address]qfnmcdk[address] [place] [phone]. Slick Broderick Hematocrit (Bld) [Volume fraction] 27.4 % Critically low 36.0-48.0 [facility] Comment on above: Performed By: #### C BC ####[facility] Oliolixjtm9[address] [place], [place] [address]Dr. Slick Broderick Hemoglobin (Bld) [Mass/Vol] 8.8 g/dL Critically low 12.0-16.0 [facility] Comment on above: Performed By: #### C BC ####[facility] Txbrnekpmb66[address] [place], [place] [address]Dr. Slick Broderick IG # 0.04 10e3/ul Critically high 0.00-0.03 [facility] Comment on above: Performed By: #### C BC ####[facility] Rosoftiaka[address] [place], [place] [address]Dr. Slick Broderick IG % 0.6 % Critically high 0.0-0.5 [facility] Comment on above: Performed By: #### C BC ####[facility] Kwxarfxkyq0727[address] [place], [place] [address]Dr. Slick Broderick LYMPH # 0.7 103/ul Critically low 1.2-3.8 [facility] Comment on above: Performed By: #### C BC ####[facility] Nftqleptzt64[address] [place], [place] [address]Dr. Slick Broderick Lymphocytes/100 WBC (Bld) 9.8 % Critically low 20.5-60.0 [facility] Comment on above: Performed By: #### C BC ####[facility] [address]awmlyp[address] [place] [phone]. Slick Broderick MANUAL DIFF REQ NO Normal [facility] Comment on above: Performed By: #### C BC ####[facility] F[address]qqsnkawd[address] [place] [phone]. Slick Broderick MCH (RBC) [Entitic mass] 28.9 pg Normal 26.7-34.0 [facility] Comment on above: Performed By: #### C BC ####[facility] X[address]ewazilhx[address] [place] [phone]. Slick Broderick MCHC (RBC) [Mass/Vol] 32.1 g/dL Normal 29.9-35.[address] [facility] Comment on above: Performed By: #### C BC ####[facility] Ktsoytvemx[address] [place], [place] [address]Dr. Slick Broderick MCV (RBC) [Entitic vol] 90.1 fL Normal 81.0-99.0 [facility] Comment on above: Performed By: #### C BC ####[facility] Repctfaxzp[address] [place], [place] [address]Dr. Slick Broderick MONO # 0.6 103/ul Normal 0.3-0.8 [facility] Comment on above: Performed By: #### C BC ####[facility] Bmezmzjspb6212[address] [place], [place] [address]Dr. Slick Broderick Monocytes/100 WBC (Bld) 7.6 % Normal 1.7-12.[address] [facility] Comment on above: Performed By: #### C BC ####[facility] Uhdklozaxn[address] [place], [place] [address]Dr. Slick Broderick NEUT # 5.9 103/ul Normal 1.4-6.[address] [facility] Comment on above: Performed By: #### C BC ####[facility] Jjdoywlfsn[address] [place], [place] [address]Dr. Slick Broderick Neutrophils/100 WBC (Bld) 80.3 % Critically high 43.0-75.0 [facility] Comment on above: Performed By: #### C BC ####[facility] Veqnhgdyeu[address] [place] [address]Dr. Slick Broderick Platelet mean volume (Bld) [Entitic vol] 9.5 fL Normal 9.5-13.[address] [facility] Comment on above: Performed By: #### C BC ####[facility] Ouaosdixuj9[address] [place] [address]Dr. Slick Broderick PLT 204 103/ul Normal 150-[address] [facility] Comment on above: Performed By: #### C BC ####[facility] Nyfmpkhghu48[address] [place], [place] [address]Dr. Slick Broderick RBC 3.04 106/ul Critically low 4.20-5.40 [facility] Comment on above: Performed By: #### C BC ####[facility] Kxigmjizep9[address] [place], [place] [address]Dr. Slick Broderick WBC 7.3 103/ul Normal 4.0-11.[address] [facility] Comment on above: Performed By: #### C BC ####[facility] Abncydrufz05[address] [place], [place] [address]Dr. Slick Broderick BASO # 0.0 103/ul Normal 0.0-0.[address] [facility] Comment on above: Performed By: #### C BC ####[facility] Fvawzpxhjd360[address] [place], [place] [address]Dr. Slick Broderick Basophils/100 WBC (Bld) 0.5 % Normal 0.2-2.[address] [facility] Comment on above: Performed By: #### C BC ####[facility] Ljnvguphje6[address] [place], [place] [address]Dr. Slick Broderick EO # 0.6 103/ul Normal 0.0-0.[address] [facility] Comment on above: Performed By: #### C BC ####[facility] Aijlkagdfa[address] [place], [place] [address]Dr. Slick Broderick Eosinophils/100 WBC (Bld) 10.4 % Critically high 0.9-7.[address] [facility] Comment on above: Performed By: #### C BC ####[facility] Qzwkautmvj7[address] [place] [address]Dr. Slick Broderick Erythrocyte distribution width (RBC) [Ratio] 14.0 % Normal 11.0-15.0 [facility] Comment on above: Performed By: #### C BC ####[facility] Fbarinovjp1663 [place] [address]Dr. Slick Broderick Hematocrit (Bld) [Volume fraction] 26.5 % Critically low 36.0-48.0 [facility] Comment on above: Performed By: #### C BC ####[facility] Zmcauuofzd[address] [place], [place] [address]Dr. Slick Broderick Hemoglobin (Bld) [Mass/Vol] 8.4 g/dL Critically low 12.0-16.0 [facility] Comment on above: Performed By: #### C BC ####[facility] Lkxpdmijnh32[address] [place], [place] [address]Dr. Slick Broderick IG # 0.02 10e3/ul Normal 0.00-0.03 [facility] Comment on above: Performed By: #### C BC ####[facility] Fsxpkptcwc45[address] [place], [place] [address]Dr. Slick Broderick IG % 0.4 % Normal 0.0-0.5 [facility] Comment on above: Performed By: #### C BC ####[facility] Oxuufbveqj232[address] [place], [place] [address]Dr. Slick Broderick LYMPH # 0.9 103/ul Critically low 1.2-3.8 [facility] Comment on above: Performed By: #### C BC ####[facility] Wxxlamfjfj119[address] [place], [place] [address]Dr. Slick Broderick Lymphocytes/100 WBC (Bld) 15.6 % Critically low 20.5-60.[address] [facility] Comment on above: Performed By: #### C BC ####[facility] Pesbbvbdox3056[address] [place], [place] [address]Dr. Slick Broderick MANUAL DIFF REQ NO Normal [facility] Comment on above: Performed By: #### C BC ####[facility] [address]pnkmdm[address] [place] [phone]. Slick Davie MCH (RBC) [Entitic mass] 29.2 pg Normal 26.7-34.[address] [facility] Comment on above: Performed By: #### C BC ####[facility] Olrwnpvjbb3[address] [place] [id number]. Slick Broderick MCHC (RBC) [Mass/Vol] 31.7 g/dL Normal 29.9-35.[address] [facility] Comment on above: Performed By: #### C BC ####[facility] Ilpebpapff[address] [place] [phone]. Slick Davie MCV (RBC) [Entitic vol] 92.0 fL Normal 81.0-99.[address] [facility] Comment on above: Performed By: #### C BC ####[facility] Vlajgbjprz8[address] [place], [place] [address]Dr. Slick Broderick MONO # 0.6 103/ul Normal 0.3-0.[address] [facility] Comment on above: Performed By: #### C BC ####[facility] Mxmnlwowrs24[address] [place], [place] [address]Dr. Meaganwendie Broderick Monocytes/100 WBC (Bld) 10.1 % Normal 1.7-12.[address] [facility] Comment on above: Performed By: #### C BC ####[facility] Xgzpesojyh765[address] [place], [place] [address]Dr. Meaganwendie Broderick NEUT # 3.5 103/ul Normal 1.4-6.[address] [facility] Comment on above: Performed By: #### C BC ####[facility] Qgkpqwxzas[address] [place], [place] [address]Dr. Slick Broderick Neutrophils/100 WBC (Bld) 63.0 % Normal 43.0-75.[address] [facility] Comment on above: Performed By: #### C BC ####[facility] Rhweaqkskc[address] [place], [place] [address]Dr. Slick Broderick Platelet mean volume (Bld) [Entitic vol] 10.0 fL Normal 9.5-13.[address] [facility] Comment on above: Performed By: #### C BC ####[facility] Qetmoctner[address] [place] [id number]. Slick Broderick PLT 198 103/ul Normal 150-450 [facility] Comment on above: Performed By: #### C BC ####[facility] Csdtuwbcza0633 [place] [phone]. Slick Broderick RBC 2.88 106/ul Critically low 4.20-5.40 [facility] Comment on above: Performed By: #### C BC ####[facility] Ckavnciifq28[address] [place] [phone]. Slick Broderick WBC 5.6 103/ul Normal 4.0-11.0 [facility] Comment on above: Performed By: #### C BC ####[facility] Stnkifuado8[address] [place] [address]Dr. S[address] Bro[address] CT HEAD WO CONon 04-22-2022 CT HEAD WO CON Normal [facility] POINT OF CARE GLUCOSEon 04-12 Glucose [Mass/Vol] 110 mg/dL Critically high 74-106 [facility] Comment on above: Performed By: #### P OCGLUC ####[facility] Hoezqrxmvr[address] [place], [place] [address]Dr. Slick Broderick PROF 14(COMP METB)on 022 Albumin [Mass/Vol] 3.0 g/dL Critically low 3.4-5.0 [facility] Comment on above: Performed By: #### C MP ####[facility] Aiuguecibw22[address] [place] [address]Dr. Slick Broderick Albumin/Globulin [Mass ratio] 0.9 {ratio} Normal [facility] Comment on above: Performed By: #### C MP ####[facility] Tzfigfxrbv8065 [place] [address]Dr. Slick Broderick ALP [Catalytic activity/Vol] 93 U/L Normal 46-116 [facility] Comment on above: Performed By: #### C MP ####[facility] Nqtftradpf0004 [place] [address]Dr. Slick Broderick ALT [Catalytic activity/Vol] 22 U/L Normal 14-[address] [facility] Comment on above: Performed By: #### C MP ####[facility] Ohsrxgaezv37[address] [place] [address]Dr. Slick Davie Anion gap [Moles/Vol] 8.9 mmol/L Normal [facility] Comment on above: Performed By: #### C MP ####[facility] Vtejmlcnlk5785 [place] [address]Dr. Slick Davie AST [Catalytic activity/Vol] 18 U/L Normal 15-[address] [facility] Comment on above: Performed By: #### C MP ####[facility] Npqjqxuqab3[address] [place], [place] [address]Dr. Slick Broderick Bilirubin [Mass/Vol] 0.3 mg/dL Normal 0.2-1.0 [facility] Comment on above: Performed By: #### C MP ####[facility] Kebtfjivmx[address] [place], [place] [address]Dr. Slick Broderick Calcium [Mass/Vol] 9.6 mg/dL Normal 8.5-10.1 [facility] Comment on above: Performed By: #### C MP ####[facility] Mhhfossdam[address] [place], [place] [address]Dr. Slick Broderick Chloride [Moles/Vol] 104 mmol/L Normal 98-[address] [facility] Comment on above: Performed By: #### C MP ####[facility] Feaimiraws8[address] [place], [place] [address]Dr. Slick Broderick CO2 [Moles/Vol] 30.8 mmol/L Normal 21.0-32.0 [facility] Comment on above: Performed By: #### C MP ####[facility] Jedwexrnxk7[address] [place], [place] [address]Dr. Slick Broderick Creatinine [Mass/Vol] 1.73 mg/dL Critically high 0.55-1.02 [facility] Comment on above: Performed By: #### C MP ####[facility] Nsolntlfnb48[address] [place], [place] [address]Dr. Slick Broderick EGFR-AF [place] 35 mL/min/1.73m2 Critically low >=[address] [facility] Comment on above: Performed By: #### C MP ####[facility] Uigovzlarq37[address] [place] [address]Dr. Slick Davie EGFR-NON AF [place] 29 mL/min/1.73m2 Critically low >=[address] [facility] Comment on above: Performed By: #### C MP ####[facility] Qchuyszajc7303 [place] [address]Dr. Slick Davie Globulin (S) [Mass/Vol] 3.4 g/dL Normal [facility] Comment on above: Performed By: #### C MP ####[facility] Jhxkhmoxip4[address] [place], [place] [address]Dr. Slick Broderick Glucose [Mass/Vol] 94 mg/dL Normal 74-106 [facility] [place] Comment on above: Performed By: #### C MP ####[facility] Ifpblprurs0636[address] [place], [place] [address]Dr. Slick Broderick Potassium [Moles/Vol] 4.7 mmol/L Normal 3.5-5.[address] [facility] Comment on above: Performed By: #### C MP ####[facility] Adwblyarzy347[address] [place], [place] [address]Dr. Slick Broderick Protein [Mass/Vol] 6.4 g/dL Normal 6.4-8.2 [facility] Comment on above: Performed By: #### C MP ####[facility] Tdhfbtjppx6586[address] [place], [place] [address]Dr. Slick Broderick Sodium [Moles/Vol] 139 mmol/L Normal 136-145 [facility] [place] Comment on above: Performed By: #### C MP ####[facility] Pbrnlhksqt9280[address] [place], [place] [address]Dr. Slick Broderick Urea nitrogen [Mass/Vol] 46.0 mg/dL Critically high 7.0-18.[address] [facility] Comment on above: Performed By: #### C MP ####[facility] Eoiewepsrd6556[address] [place], [place] [address]Dr. Slick Broderick Urea nitrogen/Creatinine [Mass ratio] 26.6 mg/mg Normal [facility] Comment on above: Performed By: #### C MP ####[facility] Poixjxkidn[address] [place], [place] [address]Dr. Slick Broderick PROF CHEM 8 (BAS METB)on Anion gap [Moles/Vol] 8.6 mmol/L Normal [facility] Comment on above: Performed By: #### B MP ####[facility] Ijemryqrho36[address] [place], [place] [address]Dr. Slick Broderick Calcium [Mass/Vol] 9.9 mg/dL Normal 8.5-10.1 [facility] Comment on above: Performed By: #### B MP ####[facility] Xxcpjsmytj313[address] [place], [place] [address]Dr. Slick Broderick Chloride [Moles/Vol] 103 mmol/L Normal 98-[address] [facility] Comment on above: Performed By: #### B MP ####[facility] Tueozrmcni5750[address] [place], [place] [address]Dr. Slick Broderick CO2 [Moles/Vol] 29.5 mmol/L Normal 21.0-32.0 [facility] Comment on above: Performed By: #### B MP ####[facility] Nberhgfqtp67[address] [place], [place] [address]Dr. Slick Broderick Creatinine [Mass/Vol] 1.62 mg/dL Critically high 0.55-1.02 [facility] Comment on above: Performed By: #### B MP ####[facility] Kzcrfuvqne95[address] [place], [place] [address]Dr. Slick Broderick EGFR-AF [place] 38 mL/min/1.73m2 Critically low >=[address] [facility] Comment on above: Performed By: #### B MP ####[facility] Npzpepdqsp8[address] [place], [place] [address]Dr. Slick Broderick EGFR-NON AF [place] 31 mL/min/1.73m2 Critically low >=[address] [facility] Comment on above: Performed By: #### B MP ####[facility] Piiintzbom[address] [place], [place] [address]Dr. Slick Broderick Glucose [Mass/Vol] 125 mg/dL Critically high 74-106 [facility] Comment on above: Performed By: #### B MP ####[facility] Scsyevvjxl27[address] [place] [address]Dr. Slick Broderick Potassium [Moles/Vol] 4.1 mmol/L Normal 3.5-5.1 [facility] Comment on above: Performed By: #### B MP ####[facility] Sibeprfrup5[address] [place], [place] [address]Dr. Slick Broderick Sodium [Moles/Vol] 137 mmol/L Normal 136-145 [facility] Comment on above: Performed By: #### B MP ####[facility] Twydlewxum4045[address] [place], [place] [address]Dr. Slick Broderick Urea nitrogen [Mass/Vol] 41.0 mg/dL Critically high 7.0-18.0 [facility] Comment on above: Performed By: #### B MP ####[facility] Dabrfvgmjc60[address] [place], [place] [address]Dr. Slick Broderick Urea nitrogen/Creatinine [Mass ratio] 25.3 mg/mg Normal [facility] Comment on above: Performed By: #### B MP ####[facility] Kvvaiagxbl[address] [place], [place] [address]Dr. Slick Broderick PROTIMEon 04-22-2022 INR Coag (PPP) [Relative time] 1.08 {INR} Normal [facility] Comment on above: Performed By: #### P T, PTT ####[facility] Ipuoelpnoh[address] [place], [place] [address]Dr. Slick Broderick INR GUIDELINES SEE BELOW Normal [facility] Comment on above: Result Comment: EDMUND RED INR: 2.0 - 3.0 CONDITIONS NOT LISTED BELOW 2.5 - 3.5 FOR PROSTHETIC HEART VALVE REPLACEMENT 2.5 - 3.5 RECURRENT THROMBOSIS Performed By: #### P T, PTT ####[facility] Qyynrhhgbp0120[address] [place], [place] [address]Dr. Slick Broderick PT Coag (PPP) [Time] 11.6 s Normal 9.0-11.[address] [facility] Comment on above: Performed By: #### P T, PTT ####[facility] Fjlhperneq[address] [place], [place] [address]DrEmma Slick Broderick PTTon 04-22-2022 aPTT Coag (Bld) [Time] 30.7 s Normal 22.3-36.[address] [facility] Comment on above: Performed By: #### P T, PTT ####[facility] Kjnaigdqsg0[address] [place], [place] [address]Dr. Slick Broderick XR TIB_FIB RT 2Von 2 XR TIB_FIB RT 2V Normal [facility] CBC AUTO DIFFon 04-21-2022 BASO # 0.0 103/ul Normal 0.0-0.[address] [facility] Comment on above: Performed By: #### C BC ####[facility] [address]nwvbmdre[address] [place], [place] [address]Dr. Slick Broderick Basophils/100 WBC (Bld) 0.3 % Normal 0.2-2.0 [facility] Comment on above: Performed By: #### C BC ####[facility] Ldmulcumyk[address] [place], [place] [address]DrEmma Slick Broderick EO # 0.6 103/ul Normal 0.0-0.[address] [facility] Comment on above: Performed By: #### C BC ####[facility] Rxmmsellbm066[address] [place], [place] [address]Dr. Slick Broderick Eosinophils/100 WBC (Bld) 10.2 % Critically high 0.9-7.[address] [facility] Comment on above: Performed By: #### C BC ####[facility] Dmoyuzpezy715[address] [place], [place] [address]Dr. Slick Broderick Erythrocyte distribution width (RBC) [Ratio] 14.2 % Normal 11.0-15.[address] [facility] Comment on above: Performed By: #### C BC ####[facility] Tkptxnlrdj0[address] [place], [place] [address]Dr. Slick Broderick Hematocrit (Bld) [Volume fraction] 25.5 % Critically low 36.0-48.0 [facility] Comment on above: Performed By: #### C BC ####[facility] [address]weqtubq[address] [place] [address]Dr. Slick Broderick Hemoglobin (Bld) [Mass/Vol] 8.1 g/dL Critically low 12.0-16.0 [facility] Comment on above: Performed By: #### C BC ####[facility] Wmelzdiout3723 [place] [address]Dr. Slick Broderick IG # 0.02 10e3/ul Normal 0.00-0.03 [facility] Comment on above: Performed By: #### C BC ####[facility] Vidkcbjvrn6[address] [place], [place] [address]Dr. Slick Davie IG % 0.3 % Normal 0.0-0.5 [facility] Comment on above: Performed By: #### C BC ####[facility] Lnwbwrdkug9[address] [place], [place] [address]Dr. Meaganwendie Davie LYMPH # 0.8 103/ul Critically low 1.2-3.8 [facility] Comment on above: Performed By: #### C BC ####[facility] Scphaojwyq6157[address] [place], [place] [address]Dr. Slick Davie Lymphocytes/100 WBC (Bld) 13.2 % Critically low 20.5-60.0 [facility] Comment on above: Performed By: #### C BC ####[facility] Uyvhtcczwr8434[address] [place], [place] [address]Dr. Meaganwendie Broderick MANUAL DIFF REQ NO Normal [facility] Comment on above: Performed By: #### C BC ####[facility] Tmtzagfzyt8[address] [place], [place] [address]Dr. Slick Davie MCH (RBC) [Entitic mass] 29.5 pg Normal 26.7-34.[address] [facility] Comment on above: Performed By: #### C BC ####[facility] Ithdnvbene217[address] [place], [place] [address]Dr. Slick Broderick MCHC (RBC) [Mass/Vol] 31.8 g/dL Normal 29.9-35.2 [facility] Comment on above: Performed By: #### C BC ####[facility] Xfwdvybzos44[address] [place] [phone]. Slick Broderick MCV (RBC) [Entitic vol] 92.7 fL Normal 81.0-99.[address] [facility] Comment on above: Performed By: #### C BC ####[facility] Kcaoeybxwb2875 [place] [phone]. Slick Broderick MONO # 0.6 103/ul Normal 0.3-0.8 [facility] Comment on above: Performed By: #### C BC ####[facility] Fwjztdekuu8237 [place] [address]Dr. Slick Broderick Monocytes/100 WBC (Bld) 9.2 % Normal 1.7-12.0 [facility] Comment on above: Performed By: #### C BC ####[facility] Nmcshgqmbn5[address] [place], [place] [address]Dr. Slick Broderick NEUT # 4.1 103/ul Normal 1.4-6.[address] [facility] Comment on above: Performed By: #### C BC ####[facility] Rdhhmrgsvg4430[address] [place], [place] [address]Dr. Slick Broderick Neutrophils/100 WBC (Bld) 66.8 % Normal 43.0-75.[address] [facility] Comment on above: Performed By: #### C BC ####[facility] Boosiusybr2565[address] [place], [place] [address]Dr. Slick Broderick Platelet mean volume (Bld) [Entitic vol] 9.5 fL Normal 9.5-13.[address] [facility] Comment on above: Performed By: #### C BC ####[facility] Jpqlrgeeho605[address] [place], [place] [address]Dr. Slick Borderick PLT 189 103/ul Normal 150-[address] [facility] Comment on above: Performed By: #### C BC ####[facility] Lvlcxlejdd6063 [place] [phone]. Slick Davie RBC 2.75 106/ul Critically low 4.20-5.40 [facility] Comment on above: Performed By: #### C BC ####[facility] Pjcxfxbqoo5248 [place] [phone]. Slick Broderick WBC 6.2 103/ul Normal 4.0-11.[address] [facility] Comment on above: Performed By: #### C BC ####[facility] Neraacnqdg5727 [place] [phone]. Slick Broderick BASO # 0.1 103/ul Normal 0.0-0.[address] [facility] Comment on above: Performed By: #### C BC ####[facility] Okungfvjzg6960 [place] [phone]. Slick Broderick Basophils/100 WBC (Bld) 0.8 % Normal 0.2-2.[address] [facility] Comment on above: Performed By: #### C BC ####[facility] Wsulounvwt8[address] [place], [place] [address]Dr. Slick Broderick EO # 0.8 103/ul Critically high 0.0-0.7 [facility] Comment on above: Performed By: #### C BC ####[facility] Qvawfikmyr0717 [place] [phone]. Slick Broderick Eosinophils/100 WBC (Bld) 11.7 % Critically high 0.9-7.[address] [facility] Comment on above: Performed By: #### C BC ####[facility] Yuoacyqihk727[address] [place], [place] [address]Dr. Slick Broderick Erythrocyte distribution width (RBC) [Ratio] 14.1 % Normal 11.0-15.[address] [facility] Comment on above: Performed By: #### C BC ####[facility] Lvvxstkoqk354[address] [place], [place] [address]Dr. Slick Broderick Hematocrit (Bld) [Volume fraction] 27.3 % Critically low 36.0-48.[address] [facility] Comment on above: Performed By: #### C BC ####[facility] Xbczxclgao4569 [place] [phone]. Slick Davie Hemoglobin (Bld) [Mass/Vol] 8.4 g/dL Critically low 12.0-16.0 [facility] Comment on above: Performed By: #### C BC ####[facility] Oeessnsqpd4416 [place] [address]Dr. Slick Broderick IG # 0.02 10e3/ul Normal 0.00-0.03 [facility] Comment on above: Performed By: #### C BC ####[facility] Wlbyhpphek3829 [place] [address]Dr. Slick Broderick IG % 0.3 % Normal 0.0-0.5 [facility] Comment on above: Performed By: #### C BC ####[facility] Vxbywamxpx3396 [place] [address]DrEmma Broderick LYMPH # 1.0 103/ul Critically low 1.2-3.8 [facility] Comment on above: Performed By: #### C BC ####[facility] Vxmblbspji0062 [place] [address]Dr. Silck Broderick Lymphocytes/100 WBC (Bld) 14.5 % Critically low 20.5-60.0 [facility] Comment on above: Performed By: #### C BC ####[facility] Ljggswygci6114 [place] [address]DrEmma Broderick MANUAL DIFF REQ NO Normal [facility] Comment on above: Performed By: #### C BC ####[facility] Xvgbftnhcv4304 [place] [address]Dr. Slick Broderick MCH (RBC) [Entitic mass] 29.2 pg Normal 26.7-34.0 [facility] Comment on above: Performed By: #### C BC ####[facility] Hseomqvuvj0290 [place] [address]Dr. Slick Broderick MCHC (RBC) [Mass/Vol] 30.8 g/dL Normal 29.9-35.[address] [facility] Comment on above: Performed By: #### C BC ####[facility] Ryzbenylpz9369 [place] [address]DrEmma Broderick MCV (RBC) [Entitic vol] 94.8 fL Normal 81.0-99.0 [facility] Comment on above: Performed By: #### C BC ####[facility] Zfxaveysuc2213 [place] [id number]. Slick Broderick MONO # 0.6 103/ul Normal 0.3-0.8 [facility] Comment on above: Performed By: #### C BC ####[facility] Jiilrkouth3804 [place] [phone]. Slick Broderick Monocytes/100 WBC (Bld) 9.7 % Normal 1.7-12.0 [facility] Comment on above: Performed By: #### C BC ####[facility] Hmxkazmghg9180 [place] [address]Dr. Slick Broderick NEUT # 4.2 103/ul Normal 1.4-6.[address] [facility] Comment on above: Performed By: #### C BC ####[facility] Xhkkvhwraq2343 [place] [address]Dr. Slick Broderick Neutrophils/100 WBC (Bld) 63.0 % Normal 43.0-75.[address] [facility] Comment on above: Performed By: #### C BC ####[facility] Ugnptdzlss3076 [place] [address]Dr. Slick Broderick Platelet mean volume (Bld) [Entitic vol] 10.0 fL Normal 9.5-13.5 [facility] Comment on above: Performed By: #### C BC ####[facility] Jnuhrhvxak8699 [place] [address]Dr. Slick Broderick PLT 210 103/ul Normal 150-[address] [facility] Comment on above: Performed By: #### C BC ####[facility] Fxhlyjmcez2901 [place] [phone]. Slick Broderick RBC 2.88 106/ul Critically low 4.20-5.40 [facility] Comment on above: Performed By: #### C BC ####[facility] Hsuhftanyr4132 [place] [phone]. Slick Broderick WBC 6.6 103/ul Normal 4.0-11.[address] [facility] Comment on above: Performed By: #### C BC ####[facility] Dykaqqndcd7784 [place] [phone]. Slick Broderick CRPon 04-21-2022 CRP 0.4 mg/dL Normal <=1.0 [facility] Comment on above: Performed By: #### H STROPN, CRP, CMP ####[facility] Odjdijmmom64[address] [place] [phone]. Slick Broderick CT HEAD WO CONon 04-21-2022 CT HEAD WO CON Normal [facility] CULTURE BLOODon 04-21-2022 Microscopic examination of blood, culture Culture Observations: NO GROWTH AT 5 DAYS. Normal [facility] Comment on above: Performed By: #### B LDCX2 ####[facility] Qiiylbxjnt6584 [place] [address]Dr. Slick Broderick Microscopic examination of blood, culture Culture Observations: NO GROWTH AT 5 DAYS. Normal [facility] Comment on above: Performed By: #### B LDCX1 ####[facility] Xhpigzdbtw9074 [place] [address]Dr. Slick Broderick CULTURE URINEon 04-21-2022 CULTURE URINE Culture Observations : MODERATE GROWTH OF MIXED GENITAL OMRA. NO POTENTIAL PATHOGENS SEEN. Normal [facility] Comment on above: Performed By: #### U RCX ####[facility] Lmwdxywqdf1678 [place] [address]Dr. Slick Broderick Covid-19 PCR (CVDTB)on 04-12 SARS-CoV-2 (COVID-19) RNA DONNIE+probe Ql (Unsp spec) Not detected Normal NOT DETECTED [facility] Comment on above: Result Comment: When [...] for this test is supported by the [place] [employer] and [employer]'s declaration that [...] be used). Performed By: #### C VDTB ####[facility] Ieyrzypvdb02[address] [place], [place] [address]Dr. Slick Broderick ER URINE PROFILEon 2 Bilirubin Ql (U) Negative Normal NEGATIVE [facility] Comment on above: Performed By: #### Dennise PLEITEZ UMICRO ####[facility] Mmhvngoksd[address] [place], [place] [address]Dr. Slick Broderick Clarity (U) CLEAR Normal CLEAR [facility] Comment on above: Performed By: #### Dennise PLEITEZ UMICRO ####[facility] Gdxjldvikc[address] [place], [place] [address]Dr. Slick Broderick Color (U) LT. YELLOW Normal YELLOW [facility] Comment on above: Performed By: #### Dennise PLEITEZ UMICRO ####[facility] Becwcrbgzq4518[address] [place], [place] [address]Dr. Slick Broderick ERUAHD A micrscopic examination will be performed if indicated. Normal [facility] Comment on above: Performed By: #### Dennise PLEITEZ UMICRO ####[facility] Egzhipatae[address] [place], [place] [address]Dr. Slick Broderick Glucose Ql (U) Negative Normal NEGATIVE [facility] Comment on above: Performed By: #### Dennise PLEITEZ UMICRO ####[facility] Mwlltnejpc244[address] [place], [place] [address]Dr. Slick Broderick Hemoglobin Ql (U) Negative Normal NEGATIVE [facility] Comment on above: Performed By: #### Dennise PLEITEZ UMICRO ####[facility] Kodqbbwzkv756[address] [place], [place] [address]Dr. Slick Broderick Ketones Ql (U) Negative Normal NEGATIVE [facility] Comment on above: Performed By: #### E RUR, UMICRO ####[facility] Mkxcabztur4357 [place] [address]Dr. Slick Broderick LEUKOCYTES TRACE Abnormal NEGATIVE [facility] Comment on above: Performed By: #### AMBERLY PEDRORO ####[facility] Wqkyzqlrlh4059 [place] [address]Dr. Slick Broderick Nitrite Ql (U) Negative Normal NEGATIVE [facility] Comment on above: Performed By: #### AMBERLY PEDRORO ####[facility] Twhgjgnblb3779 [place] [address]Dr. Slick Broderick pH (U) 5.5 [pH] Normal 5-9 [facility] Comment on above: Performed By: #### JANIS PEDRO ####[facility] Vgtiwgqikq4679 [place] [address]Dr. Slick Broderick SPEC GRAVITY 1.010 Normal 1.005-<=1.025 [facility] Comment on above: Performed By: #### AMBERLY PEDRORO ####[facility] Vvwmcbpvub4394 [place] [address]Dr. Slick Broderick UA PROTEIN Negative Normal NEGATIVE/ TRACE [facility] Comment on above: Performed By: #### JANIS PEDRO ####[facility] Xrkbmcseqv1696 [place] [address]Dr. Slick Broderick UR MICRO IND INDICATED Normal [facility] Comment on above: Performed By: #### JANIS PEDRO ####[facility] Spxkfxwcmf7838 [place] [address]Dr. Slick Broderick Urobilinogen Qn (U) 0.2 {Hiren'U}/dL Normal 0.2 - 1. 0 [facility] Comment on above: Performed By: #### JANIS PEDRO ####[facility] Tzaxsfytmk7947 [place] [address]Dr. Slick Broderick LACTATE/LACTIC ACIDon 2021 Lactate [Moles/Vol] 1.0 mmol/L Normal 0.4-1.9 [facility] Comment on above: Performed By: #### L ACT ####[facility] Aczlursyok4482 [place] [phone]. Slick Broderick POINT OF CARE GLUCOSEon 04-12 Glucose [Mass/Vol] 109 mg/dL Critically high 74-106 [facility] Comment on above: Performed By: #### P OCGLUC ####[facility] Mxyyvzgpkr7749 [place] [address]Dr. Slick Davie Glucose [Mass/Vol] 93 mg/dL Normal 74-106 [facility] Comment on above: Performed By: #### P OCGLUC ####[facility] Pzydigvhdz7133 [place] [address]Dr. Slick Broderick Glucose [Mass/Vol] 140 mg/dL Critically high 74-106 [facility] Comment on above: Performed By: #### P OCGLUC ####[facility] Jwvyauhdmg8340 [place] [address]Dr. Slick Davie Glucose [Mass/Vol] 95 mg/dL Normal 74-106 [facility] Comment on above: Performed By: #### P OCGLUC ####[facility] Xprvhwweoc6155 [place] [address]Dr. Meaganwendie Broderick PROF 14(COMP METB)on 022 Albumin [Mass/Vol] 2.9 g/dL Critically low 3.4-5.0 [facility] Comment on above: Performed By: #### C MP ####[facility] Uabuicxyen0115 [place] [address]Dr. Slick Davie Albumin/Globulin [Mass ratio] 0.9 {ratio} Normal [facility] Comment on above: Performed By: #### C MP ####[facility] Sdjylykikq3306 [place] [address]Dr. Slick Davie ALP [Catalytic activity/Vol] 87 U/L Normal 46-116 [facility] Comment on above: Performed By: #### C MP ####[facility] Zoxkprpvwq5514 [place] [address]Dr. Slick Broderick ALT [Catalytic activity/Vol] 21 U/L Normal 14-59 [facility] Comment on above: Performed By: #### C MP ####[facility] Vydevqpojm7634 [place] [phone]. Slick Broderick Anion gap [Moles/Vol] 7.7 mmol/L Normal [facility] Comment on above: Performed By: #### C MP ####[facility] Xcllhyebrs6342 [place] [phone]. Slick Broderick AST [Catalytic activity/Vol] 11 U/L Critically low 15-37 [facility] Comment on above: Performed By: #### C MP ####[facility] Pflluyfsnu8960 [place] [phone]. Slick Davie Bilirubin [Mass/Vol] 0.2 mg/dL Normal 0.2-1.0 [facility] Comment on above: Performed By: #### C MP ####[facility] Dvyfwodsui5940 [place] [address]Dr. Slick Davie Calcium [Mass/Vol] 9.4 mg/dL Normal 8.5-10.1 [facility] Comment on above: Performed By: #### C MP ####[facility] Egdwafuusc4779 [place] [address]Dr. Slick Davie Chloride [Moles/Vol] 107 mmol/L Normal 98-107 [facility] Comment on above: Performed By: #### C MP ####[facility] Xptzzvuxmx5331 [place] [phone]. Slick Davie CO2 [Moles/Vol] 31.2 mmol/L Normal 21.0-32.0 [facility] Comment on above: Performed By: #### C MP ####[facility] Fkiqzmxuze[address] [place], [place] [address]Dr. Slick Broderick Creatinine [Mass/Vol] 2.06 mg/dL Critically high 0.55-1.02 [facility] Comment on above: Performed By: #### C MP ####[facility] Xxjeyeygrl8195 [place] [id number]. Slick Davie EGFR-AF [place] 29 mL/min/1.73m2 Critically low >=60 [facility] Comment on above: Performed By: #### C MP ####[facility] Isyxdrzkek3759 [place] [phone]. Slick Broderick EGFR-NON AF [place] 24 mL/min/1.73m2 Critically low >=60 [facility] Comment on above: Performed By: #### C MP ####[facility] Ziyhawcpml0532 [place] [phone]. Slick Broderick Globulin (S) [Mass/Vol] 3.4 g/dL Normal [facility] Comment on above: Performed By: #### C MP ####[facility] Ocjpdeirdq8819 [place] [phone]. Slick Broderick Glucose [Mass/Vol] 93 mg/dL Normal 74-106 [facility] Comment on above: Performed By: #### C MP ####[facility] Gtdzapheax5511 [place] [address]Dr. Slick Broderick Potassium [Moles/Vol] 4.9 mmol/L Normal 3.5-5.1 [facility] Comment on above: Performed By: #### C MP ####[facility] Pamdxhjcoy6851 [place] [id number]. Slick Broderick Protein [Mass/Vol] 6.3 g/dL Critically low 6.4-8.2 [facility] Comment on above: Performed By: #### C MP ####[facility] Rzsvnlypwm7608 [place] [address]Dr. Slick Broderick Sodium [Moles/Vol] 141 mmol/L Normal 136-145 [facility] Comment on above: Performed By: #### C MP ####[facility] Abmfdpyczb3383 [place] [phone]. Slick Broderick Urea nitrogen [Mass/Vol] 63.0 mg/dL Critically high 7.0-18.0 [facility] Comment on above: Performed By: #### C MP ####[facility] Ooetmlbgmk5727 [place] [phone]. Slick Davie Urea nitrogen/Creatinine [Mass ratio] 30.6 mg/mg Normal [facility] Comment on above: Performed By: #### C MP ####[facility] Vigwdzytrr8309 [place] [address]Dr. Slick Broderick Albumin [Mass/Vol] 3.1 g/dL Critically low 3.4-5.0 [facility] Comment on above: Performed By: #### H STROPN, CRP, CMP ####[facility] Kyirbtikrv2894 [place] [address]Dr. Slick Broderick Albumin/Globulin [Mass ratio] 0.9 {ratio} Normal [facility] Comment on above: Performed By: #### H STROPN, CRP, CMP ####[facility] Kzkyoupovs[address] [place], [place] [address]Dr. Slick Broderick ALP [Catalytic activity/Vol] 98 U/L Normal 46-116 [facility] Comment on above: Performed By: #### H STROPN, CRP, CMP ####[facility] Gjrgdkybei02[address] [place], [place] [address]Dr. Slick Broderick ALT [Catalytic activity/Vol] 17 U/L Normal 14-59 [facility] Comment on above: Performed By: #### H STROPN, CRP, CMP ####[facility] Pdebndhsjg5576[address] [place], [place] [address]Dr. Slick Broderick Anion gap [Moles/Vol] 4.3 mmol/L Normal [facility] Comment on above: Performed By: #### H STROPN, CRP, CMP ####[facility] Waglckpths9554[address] [place], [place] [address]Dr. Slick Broderick AST [Catalytic activity/Vol] 11 U/L Critically low 15-37 [facility] Comment on above: Performed By: #### H STROPN, CRP, CMP ####[facility] Fvizaunxyq4367[address] [place], [place] [address]Dr. Slick Broderick Bilirubin [Mass/Vol] 0.2 mg/dL Normal 0.2-1.0 [facility] Comment on above: Performed By: #### H STROPN, CRP, CMP ####[facility] Szzcxlqxvr2[address] [place], [place] [address]Dr. Slick Broderick Calcium [Mass/Vol] 9.6 mg/dL Normal 8.5-10.1 [facility] Comment on above: Performed By: #### H STROPN, CRP, CMP ####[facility] Uunkojcrnr0852 [place] [address]Dr. Slick Broderick Chloride [Moles/Vol] 104 mmol/L Normal 98-107 [facility] Comment on above: Performed By: #### H STROPN, CRP, CMP ####[facility] Pncqhrtlsf5602 [place] [address]Dr. Slick Broderick CO2 [Moles/Vol] 32.3 mmol/L Critically high 21.0-32.0 [facility] Comment on above: Performed By: #### H STROPN, CRP, CMP ####[facility] Gpijorndtg9[address] [place], [place] [address]Dr. Slick Broderick Creatinine [Mass/Vol] 2.49 mg/dL Critically high 0.55-1.02 [facility] Comment on above: Performed By: #### H STROPN, CRP, CMP ####[facility] Wvzcgbjuzr9639 [place] [address]Dr. Slick Broderick EGFR-AF [place] 23 mL/min/1.73m2 Critically low >=60 [facility] Comment on above: Performed By: #### H STROPN, CRP, CMP ####[facility] Gtbpxuydaa[address] [place], [place] [address]Dr. Slick Broderick EGFR-NON AF [place] 19 mL/min/1.73m2 Critically low >=[address] [facility] Comment on above: Performed By: #### H STROPN, CRP, CMP ####[facility] Gzcvpihuue2930 [place] [address]Dr. Slick Broderick Globulin (S) [Mass/Vol] 3.5 g/dL Normal [facility] Comment on above: Performed By: #### H STROPN, CRP, CMP ####[facility] Gweopmfwep3878 [place] [address]Dr. Slick Broderick Glucose [Mass/Vol] 112 mg/dL Critically high 74-106 [facility] Comment on above: Performed By: #### H STROPN, CRP, CMP ####[facility] Lrthyyrqxd8469 [place] [address]Dr. Slick Broderick Potassium [Moles/Vol] 4.6 mmol/L Normal 3.5-5.1 [facility] Comment on above: Performed By: #### H STROPN, CRP, CMP ####[facility] Kypvanxzzc0556 [place] [address]Dr. Slick Broderick Protein [Mass/Vol] 6.6 g/dL Normal 6.4-8.2 [facility] [place] Comment on above: Performed By: #### H STROPN, CRP, CMP ####[facility] [address]zxaqfctqw8[address] [place], [place] [address]Dr. Slick Broderick Sodium [Moles/Vol] 136 mmol/L Normal 136-145 [facility] Comment on above: Performed By: #### H STROPN, CRP, CMP ####[facility] Mwphdvosuo5[address] [place], [place] [address]Dr. Slick Broderick Urea nitrogen [Mass/Vol] 74.0 mg/dL Critically high 7.0-18.0 [facility] Comment on above: Performed By: #### H STROPN, CRP, CMP ####[facility] Nquvlerhci7455 [place] [address]Dr. Slick Broderick Urea nitrogen/Creatinine [Mass ratio] 29.7 mg/mg Normal [facility] Comment on above: Performed By: #### H STROPN, CRP, CMP ####[facility] Nwtrkkeqgg5388 [place] [address]Dr. Slick Broderick SED RATE [facility] 2021 SED RATE 32 mm/hr Critically high <=30 [facility] Comment on above: Performed By: #### S EDR ####[facility] Smugwubjmy3643 [place] [address]Dr. Slick Broderick TROPONIN, HIGH SENSITIVITYon 04-21-2022 HSTROP 8.6 pg/mL Normal 4.0-51.[address] [facility] Comment on above: Result Comment: CUT- OFF POINTS HAVE BEEN ESTABLISHED BASED ON THE FOURTH UNIVERSAL DEFINITIONS OF MYOCARDIALINFARCTION. THE UPPER REFERENCE LIMIT (URL) OF TROPONIN, DEFINED THE 99TH PERCENTILE OFcTnI DISTRIBUTION IN A REFERENCE POPULATION, HAS BEEN CONFIRMED THE DECISION THRESHOLDFOR PR DIAGNOSIS. Performed By: #### H STROPN, CRP, CMP ####[facility] [address] [place] [address]Dr. Slick Broderick URINE MICROSCOPIC ONLYon BACTERIA TRACE Abnormal NONE SEEN [facility] Comment on above: Performed By: #### Dennise PLEITEZ UMICRO ####[facility] Ddiowptgxk76[address] [place] [address]Dr. Slick Broderick Bacteria identified Cx Nom (U) INDICATED Normal [facility] Comment on above: Performed By: #### Dennise PLEITEZ UMICRO ####[facility] Bgofdkuhhc[address] [place] [address]Dr. Slick Broderick CAST NONE SEEN Normal NONE SEEN [facility] Comment on above: Performed By: #### Dennise PLEITEZ UMICRO ####[facility] Vcdxwjrnoe[address] [place], [place] [address]Dr. Slick Broderick Crystals LM Nom (Urine sed) NONE SEEN Normal NONE SEEN [facility] Comment on above: Performed By: #### Dennise PLEITEZ UMICRO ####[facility] Xcacgtkpxv[address] [place], [place] [address]Dr. Slick Broderick Epithelial cells LM Ql (Urine sed) FEW Abnormal NONE SEEN /RARE [facility] Comment on above: Performed By: #### Dennise PLEITEZ UMICRO ####[facility] Iezihijbfn[address] [place], [place] [address]Dr. Slick Broderick MUCOUS NONE SEEN Normal NONE SEEN [facility] Comment on above: Performed By: #### Dennise PLEITEZ UMICRO ####[facility] Brkshkimco[address] [place], [place] [address]Dr. Slick Broderick RBC 0-2 Normal 0-[address] [facility] Comment on above: Performed By: #### Dennise PLEITEZ UMREHANRO ####[facility] Aansiwwdvc[address] [place], [place] [address]Dr. Slick Broderick WBC 5-10 Abnormal NONE SEEN [facility] Comment on above: Performed By: #### E JANIS PLEITEZ ####[facility] Ypeezpxqso69[address] [place] [address]Dr. Slick Broderick XR CHEST 1 Von 04-21-2022 XR CHEST [address] [facility] CBC AUTO DIFFon 03-29-2022 BASO # 0.1 103/ul Normal 0.0-0.[address] [facility] Comment on above: Performed By: #### C BC ####[facility] Gqdneirnks[address] [place] [phone]. Slick Broderick Basophils/100 WBC (Bld) 0.7 % Normal 0.2-2.[address] [facility] Comment on above: Performed By: #### C BC ####[facility] Yemodvqfnl17[address] [place] [address]Dr. Slick Broderick EO # 0.4 103/ul Normal 0.0-0.[address] [facility] Comment on above: Performed By: #### C BC ####[facility] Lhyowmdvdg98[address] [place] [address]Dr. Slick Broderick Eosinophils/100 WBC (Bld) 4.8 % Normal 0.9-7.[address] [facility] Comment on above: Performed By: #### C BC ####[facility] Pcxkejzkee94[address] [place] [address]Dr. Slick Broderick Erythrocyte distribution width (RBC) [Ratio] 13.9 % Normal 11.0-15.[address] [facility] Comment on above: Performed By: #### C BC ####[facility] Cuorhylqmy33[address] [place] [address]Dr. Slick Broderick Hematocrit (Bld) [Volume fraction] 28.0 % Critically low 36.0-48.[address] [facility] Comment on above: Performed By: #### C BC ####[facility] Jswzmlpvxy6470 [place] [address]Dr. Slick Broderick Hemoglobin (Bld) [Mass/Vol] 8.8 g/dL Critically low 12.0-16.[address] [facility] Comment on above: Performed By: #### C BC ####[facility] Ndbaqselgg7097 [place] [phone]. Meaganwendie Davie IG # 0.05 10e3/ul Critically high 0.00-0.03 [facility] Comment on above: Performed By: #### C BC ####[facility] Kcxjcyqosr34[address] [place] [phone]. Slick Broderick IG % 0.7 % Critically high 0.0-0.5 [facility] Comment on above: Performed By: #### C BC ####[facility] Wrcbyjnzvj4[address] [place] [address]Dr. Slick Broderick LYMPH # 1.0 103/ul Critically low 1.2-3.8 [facility] Comment on above: Performed By: #### C BC ####[facility] Hylpnlfhig5[address] [place] [address]Dr. Slick Broderick Lymphocytes/100 WBC (Bld) 13.0 % Critically low 20.5-60.0 [facility] Comment on above: Performed By: #### C BC ####[facility] Jrghoqocwq5193 [place] [address]DrEmma Broderick MANUAL DIFF REQ NO Normal [facility] Comment on above: Performed By: #### C BC ####[facility] Rtgevwnlof7[address] [place] [phone]. Slick Broderick MCH (RBC) [Entitic mass] 28.9 pg Normal 26.7-34.0 [facility] Comment on above: Performed By: #### C BC ####[facility] Jfzswskkxm2096 [place] [phone]. Slick Broderick MCHC (RBC) [Mass/Vol] 31.4 g/dL Normal 29.9-35.[address] [facility] Comment on above: Performed By: #### C BC ####[facility] Etqeufpplp68[address] [place] [phone]. Slick Broderick MCV (RBC) [Entitic vol] 92.1 fL Normal 81.0-99.0 [facility] Comment on above: Performed By: #### C BC ####[facility] Wmgowzrpjx1268 [place] [phone]. Slick Broderick MONO # 0.8 103/ul Normal 0.3-0.[address] [facility] Comment on above: Performed By: #### C BC ####[facility] Gqufqqtxzb45[address] [place] [phone]. Slick Broderick Monocytes/100 WBC (Bld) 10.7 % Normal 1.7-12.[address] [facility] Comment on above: Performed By: #### C BC ####[facility] Ixoqhtbowi10[address] [place] [phone]. Slick Broderick NEUT # 5.4 103/ul Normal 1.4-6.[address] [facility] Comment on above: Performed By: #### C BC ####[facility] Nycgjaiudb3308 [place] [phone]. Slick Broderick Neutrophils/100 WBC (Bld) 70.1 % Normal 43.0-75.[address] [facility] Comment on above: Performed By: #### C BC ####[facility] Uzqsddlmpe7906 [place] [phone]. Slick Broderick Platelet mean volume (Bld) [Entitic vol] 8.9 fL Critically low 9.5-13.5 [facility] Comment on above: Performed By: #### C BC ####[facility] Mgpgfmpqgh5669 [place] [phone]. Slick Broderick PLT 221 103/ul Normal 150-[address] [facility] Comment on above: Performed By: #### C BC ####[facility] Huqoxcxfow039[address] [place] [phone]. Slick Broderick RBC 3.04 106/ul Critically low 4.20-5.40 [facility] Comment on above: Performed By: #### C BC ####[facility] Cbgilfvkpw8727 [place] [phone]. Slick Broderick WBC 7.7 103/ul Normal 4.0-11.[address] [facility] Comment on above: Performed By: #### C BC ####[facility] Imxrjvrqhy9[address] [place], [place] [address]Dr. Slick Broderick PRBC LEUKOREDUCEDon 03-29-20 PRBC LEUKOREDUCED Cross Match Result Compatible Unit Blood Type O Pos Unit Number [id number] Status Information Transfused Product ID Red Blood Cells Product Code [id number] Normal [facility] Comment on above: Performed By: #### P RBC ####[facility] Jbewydnnad117[address] [place], [place] [address]Dr. Slick Broderick PROF CHEM 8 (BAS METB)on Anion gap [Moles/Vol] 9.6 mmol/L Normal [facility] Comment on above: Performed By: #### B MP ####[facility] Bzuvjupqld37[address] [place], [place] [address]Dr. Slick Borderick Calcium [Mass/Vol] 9.4 mg/dL Normal 8.5-10.1 [facility] Comment on above: Performed By: #### B MP ####[facility] Dbgqxidkxz37[address] [place], [place] [address]Dr. Slick Broderick Chloride [Moles/Vol] 101 mmol/L Normal 98-[address] [facility] Comment on above: Performed By: #### B MP ####[facility] Aldfnqcscb1398[address] [place], [place] [address]Dr. Slcik Broderick CO2 [Moles/Vol] 28.3 mmol/L Normal 21.0-32.0 [facility] Comment on above: Performed By: #### B MP ####[facility] Ejqprukmtp7166[address] [place], [place] [address]Dr. Slick Broderick Creatinine [Mass/Vol] 1.56 mg/dL Critically high 0.55-1.02 [facility] Comment on above: Performed By: #### B MP ####[facility] Cfpdksgnzm032[address] [place], [place] [address]Dr. Slick Broderick EGFR-AF [place] 39 mL/min/1.73m2 Critically low >=[address] [facility] Comment on above: Performed By: #### B MP ####[facility] Fxffzojstn9432 [place] [address]Dr. Slick Broderick EGFR-NON AF [place] 33 mL/min/1.73m2 Critically low >=60 [facility] Comment on above: Performed By: #### B MP ####[facility] Gzdbpspywq0638 [place] [address]Dr. Slick Broderick Glucose [Mass/Vol] 88 mg/dL Normal 74-106 [facility] Comment on above: Performed By: #### B MP ####[facility] Tcodbsdwki7[address] [place], [place] [address]Dr. Slick Broderick Potassium [Moles/Vol] 4.9 mmol/L Normal 3.5-5.1 [facility] Comment on above: Performed By: #### B MP ####[facility] Cdvprzvaag23[address] [place], [place] [address]Dr. Slick Broderick Sodium [Moles/Vol] 134 mmol/L Critically low 136-145 [facility] Comment on above: Performed By: #### B MP ####[facility] Evvbhgsvgy4175[address] [place], [place] [address]Dr. Slick Broderick Urea nitrogen [Mass/Vol] 50.0 mg/dL Critically high 7.0-18.0 [facility] Comment on above: Performed By: #### B MP ####[facility] Ybsllnrfin01[address] [place], [place] [address]Dr. Slick Broderick Urea nitrogen/Creatinine [Mass ratio] 32.1 mg/mg Normal [facility] Comment on above: Performed By: #### B MP ####[facility] Agjjtigxjn[address] [place], [place] [address]Dr. Slick Davie CBC AUTO DIFFon 03-28-2022 BASO # 0.1 103/ul Normal 0.0-0.1 [facility] Comment on above: Performed By: #### C BC ####[facility] Eygckdhzbc66[address] [place] [address]Dr. Meaganwendie Broderick Basophils/100 WBC (Bld) 0.7 % Normal 0.2-2.0 [facility] Comment on above: Performed By: #### C BC ####[facility] Bvosxzrnws[address] [place] [phone]. Slick Broderick EO # 0.4 103/ul Normal 0.0-0.[address] [facility] Comment on above: Performed By: #### C BC ####[facility] Bnarekpgvv1751 [place] [address]Dr. Slick Broderick Eosinophils/100 WBC (Bld) 5.5 % Normal 0.9-7.[address] [facility] Comment on above: Performed By: #### C BC ####[facility] Efxwwmjyqd47[address] [place], [place] [address]Dr. Slick Broderick Erythrocyte distribution width (RBC) [Ratio] 13.6 % Normal 11.0-15.[address] [facility] Comment on above: Performed By: #### C BC ####[facility] Wurvfcfmaq8[address] [place], [place] [address]Dr. Slick Broderick Hematocrit (Bld) [Volume fraction] 27.9 % Critically low 36.0-48.[address] [facility] Comment on above: Performed By: #### C BC ####[facility] Hiexukjnph5[address] [place], [place] [address]Dr. Slick Broderick Hemoglobin (Bld) [Mass/Vol] 9.0 g/dL Critically low 12.0-16.[address] [facility] Comment on above: Performed By: #### C BC ####[facility] Fjbdcnuske7[address] [place], [place] [address]Dr. Slick Broderick IG # 0.02 10e3/ul Normal 0.00-0.[address] [facility] Comment on above: Performed By: #### C BC ####[facility] Etyzvmysty41[address] [place] [address]Dr. Slick Broderick IG % 0.3 % Normal 0.0-0.[address] [facility] Comment on above: Performed By: #### C BC ####[facility] Aobqkaczoh[address] [place], [place] [address]Dr. Slick Broderick LYMPH # 0.9 103/ul Critically low 1.2-3.8 [facility] Comment on above: Performed By: #### C BC ####[facility] Dhdpnrtxro2245 [place] [phone]. Slick Broderick Lymphocytes/100 WBC (Bld) 13.0 % Critically low 20.5-60.[address] [facility] Comment on above: Performed By: #### C BC ####[facility] Iszuqezdft1725 [place] [phone]. Slick Broderick MANUAL DIFF REQ NO Normal [facility] Comment on above: Performed By: #### C BC ####[facility] Suxbapvvji0307 [place] [phone]. Slick Davie MCH (RBC) [Entitic mass] 29.6 pg Normal 26.7-34.[address] [facility] Comment on above: Performed By: #### C BC ####[facility] Eupjqwxnur5711 [place] [address]Dr. Slick Broderick MCHC (RBC) [Mass/Vol] 32.3 g/dL Normal 29.9-35.[address] [facility] Comment on above: Performed By: #### C BC ####[facility] Kxioitsbco5968 [place] [phone]. Slick Broderick MCV (RBC) [Entitic vol] 91.8 fL Normal 81.0-99.[address] [facility] Comment on above: Performed By: #### C BC ####[facility] Pnrughetpt6089 [place] [address]Dr. Slick Davie MONO # 0.7 103/ul Normal 0.3-0.[address] [facility] Comment on above: Performed By: #### C BC ####[facility] Bkxpuidtoy1137 [place] [phone]. Slick Davie Monocytes/100 WBC (Bld) 11.1 % Normal 1.7-12.[address] [facility] Comment on above: Performed By: #### C BC ####[facility] Qpcwmuhomz64[address] [place], [place] [address]Dr. Meaganwendie Broderick NEUT # 4.6 103/ul Normal 1.4-6.[address] [facility] Comment on above: Performed By: #### C BC ####[facility] Gtfrkjzbsv5381 [place] [phone]. Slick Broderick Neutrophils/100 WBC (Bld) 69.4 % Normal 43.0-75.[address] [facility] Comment on above: Performed By: #### C BC ####[facility] Hptsfmpamb8550 [place] [phone]. Slick Broderick Platelet mean volume (Bld) [Entitic vol] 8.9 fL Critically low 9.5-13.[address] [facility] Comment on above: Performed By: #### C BC ####[facility] Qlhuclpgzo4892 [place] [phone]. Slick Broderick PLT 216 103/ul Normal 150-[address] [facility] Comment on above: Performed By: #### C BC ####[facility] Zulglxaozc6484 [place] [address]Dr. Slick Broderick RBC 3.04 106/ul Critically low 4.20-5.40 [facility] Comment on above: Performed By: #### C BC ####[facility] Yycgxjcgzw[address] [place], [place] [address]Dr. Slick Broderick WBC 6.7 103/ul Normal 4.0-11.[address] [facility] Comment on above: Performed By: #### C BC ####[facility] Iuupdzwrlc66[address] [place], [place] [address]Dr. Slick Broderick BASO # 0.0 103/ul Normal 0.0-0.[address] [facility] Comment on above: Performed By: #### C BC ####[facility] Uffeoyrlji8640 [place] [address]Dr. Slick Broderick Basophils/100 WBC (Bld) 0.5 % Normal 0.2-2.[address] [facility] Comment on above: Performed By: #### C BC ####[facility] Dxrmndahal84[address] [place], [place] [address]Dr. Slick Broderick EO # 0.4 103/ul Normal 0.0-0.[address] [facility] Comment on above: Performed By: #### C BC ####[facility] Aaznbrzpky9411 [place] [address]Dr. Slick Broderick Eosinophils/100 WBC (Bld) 5.3 % Normal 0.9-7.[address] [facility] Comment on above: Performed By: #### C BC ####[facility] Bqbtwtcbtu0610 [place] [address]Dr. Slick Broderick Erythrocyte distribution width (RBC) [Ratio] 12.9 % Normal 11.0-15.[address] [facility] Comment on above: Performed By: #### C BC ####[facility] Amudpdtgco7968[address] [place], [place] [address]Dr. Slick Broderick Hematocrit (Bld) [Volume fraction] 23.9 % Critically low 36.0-48.[address] [facility] Comment on above: Performed By: #### C BC ####[facility] Qeddohktrx514[address] [place], [place] [address]Dr. Slick Broderick Hemoglobin (Bld) [Mass/Vol] 7.7 g/dL Critically low 12.0-16.0 [facility] Comment on above: Performed By: #### C BC ####[facility] Vwilzvvuql12[address] [place], [place] [address]Dr. Slick Broderick IG # 0.04 10e3/ul Critically high 0.00-0.03 [facility] Comment on above: Performed By: #### C BC ####[facility] Tcjdgfqkhq006[address] [place], [place] [address]Dr. Slick Broderick IG % 0.5 % Normal 0.0-0.[address] [facility] Comment on above: Performed By: #### C BC ####[facility] Vrctfgwvtt66[address] [place], [place] [address]Dr. Slick Broderick LYMPH # 0.9 103/ul Critically low 1.2-3.8 [facility] Comment on above: Performed By: #### C BC ####[facility] Lbfebnfthh1221 [place] [address]Dr. Slick Broderick Lymphocytes/100 WBC (Bld) 11.7 % Critically low 20.5-60.[address] [facility] Comment on above: Performed By: #### C BC ####[facility] Yixldkejhh6956 [place] [phone]. Slick Broderick MANUAL DIFF REQ NO Normal [facility] Comment on above: Performed By: #### C BC ####[facility] Syevtgueuh7516 [place] [phone]. Slick Broderick MCH (RBC) [Entitic mass] 30.1 pg Normal 26.7-34.[address] [facility] Comment on above: Performed By: #### C BC ####[facility] Cwzohznksc[address] [place], [place] [address]Dr. Slick Broderick MCHC (RBC) [Mass/Vol] 32.2 g/dL Normal 29.9-35.[address] [facility] Comment on above: Performed By: #### C BC ####[facility] Hpgjjcnwed01[address] [place], [place] [address]Dr. Meaganwendie Broderick MCV (RBC) [Entitic vol] 93.4 fL Normal 81.0-99.[address] [facility] Comment on above: Performed By: #### C BC ####[facility] Ihwsvvjlqv8[address] [place], [place] [address]Dr. Slick Davie MONO # 0.9 103/ul Critically high 0.3-0.8 [facility] Comment on above: Performed By: #### C BC ####[facility] Jgjlpgdbbi907[address] [place], [place] [address]Dr. Slick Broderick Monocytes/100 WBC (Bld) 12.0 % Normal 1.7-12.[address] [facility] Comment on above: Performed By: #### C BC ####[facility] Aeuwleoadu5976 [place] [address]Dr. Meaganwendie Broderick NEUT # 5.4 103/ul Normal 1.4-6.[address] [facility] Comment on above: Performed By: #### C BC ####[facility] Hqljpvzgit41[address] [place], [place] [address]Dr. Slick Broderick Neutrophils/100 WBC (Bld) 70.0 % Normal 43.0-75.[address] [facility] Comment on above: Performed By: #### C BC ####[facility] Bogwidvlfs4288 [place], [place] [address]Nc. Slick Broderick Platelet mean volume (Bld) [Entitic vol] 9.0 fL Critically low 9.5-13.5 [facility] Comment on above: Performed By: #### C BC ####[facility] Vuoceqdttb1725 [place], [place] [address]Ou. Slick Broderick PLT 210 103/ul Normal 150-[address] [facility] Comment on above: Performed By: #### C BC ####[facility] Ezzzxaoxtl8392 [place], [place] [address]Cw. Slick Broderick RBC 2.56 106/ul Critically low 4.20-5.40 [facility] Comment on above: Performed By: #### C BC ####[facility] Ckkiwcmxql0824 [place], [place] [address]Qr. Slick Broderick WBC 7.7 103/ul Normal 4.0-11.[address] [facility] Comment on above: Performed By: #### C BC ####[facility] Htqrdacyts9763 [place], [place] [address]Fk. Slick Broderick CULTURE URINEon 03-28-2022 CULTURE URINE Culture Observations : NO GROWTH. Normal [facility] Comment on above: Performed By: #### U RCX ####[facility] Utcgdnmtbl3708 [place], [place] [address]On. Slick Broderick Covid-19 PCR (CVDTB)on 03-12 SARS-CoV-2 (COVID-19) RNA DONNIE+probe Ql (Unsp spec) Not detected Normal NOT DETECTED [facility] Comment on above: Result Comment: When [...] for this test is supported by the [place] [employer] and [employer]'s declaration that [...] be used). Performed By: #### C VDTBH ####[facility] Yijpyigswi0219 [place] [address]Dr. Slick Broderick IRONon 03-28-2022 Iron [Mass/Vol] 32.0 ug/dL Critically low 50.0-170.0 [facility] Comment on above: Performed By: #### I YUNIOR ####[facility] Kbfucrmnwk[address] [place], [place] [address]Dr. Slick Broderick POINT OF CARE GLUCOSEon 03-12 Glucose [Mass/Vol] 119 mg/dL Critically high 74-106 [facility] Comment on above: Performed By: #### P OCGLUC ####[facility] Rrnisapzeb[address] [place], [place] [address]Dr. Slick Broderick Glucose [Mass/Vol] 178 mg/dL Critically high 74-106 [facility] Comment on above: Performed By: #### P OCGLUC ####[facility] Yegmovatfz8694 [place] [address]Dr. Slick Broderick Glucose [Mass/Vol] 106 mg/dL Normal 74-106 [facility] Comment on above: Performed By: #### P OCGLUC ####[facility] Vdtyrquzbw[address] [place], [place] [address]Dr. Slick Broderick PROF CHEM 8 (BAS METB)on Anion gap [Moles/Vol] 9.5 mmol/L Normal [facility] Comment on above: Performed By: #### B MP ####[facility] Osbxqbmkqx6059 [place] [address]Dr. Slick Broderick Calcium [Mass/Vol] 9.5 mg/dL Normal 8.5-10.1 [facility] Comment on above: Performed By: #### B MP ####[facility] Zkxqbrnujm0684 [place] [phone]. Slick Broderick Chloride [Moles/Vol] 98 mmol/L Normal 98-107 [facility] Comment on above: Performed By: #### B MP ####[facility] Btkfwrxora0669 [place] [phone]. Slick Broderick CO2 [Moles/Vol] 28.5 mmol/L Normal 21.0-32.0 [facility] Comment on above: Performed By: #### B MP ####[facility] Xucfjzwtbj5196 [place] [phone]. Slick Broderick Creatinine [Mass/Vol] 1.90 mg/dL Critically high 0.55-1.02 [facility] Comment on above: Performed By: #### B MP ####[facility] Myfdkkiohe1823 [place] [address]Dr. Meaganwendie Broderick EGFR-AF [place] 31 mL/min/1.73m2 Critically low >=60 [facility] Comment on above: Performed By: #### B MP ####[facility] Qcvfhdwgsh1691 [place] [phone]. Slick Davie EGFR-NON AF [place] 26 mL/min/1.73m2 Critically low >=60 [facility] Comment on above: Performed By: #### B MP ####[facility] Zzaqesbcpg1498 [place] [phone]. Slick Broderick Glucose [Mass/Vol] 102 mg/dL Normal 74-106 [facility] Comment on above: Performed By: #### B MP ####[facility] Fdorbsozrm5294 [place] [phone]. Meaganwendie Broderick Potassium [Moles/Vol] 4.0 mmol/L Normal 3.5-5.1 [facility] Comment on above: Performed By: #### B MP ####[facility] Bpjdvsvxvk6594 [place] [address]Dr. Slick Broderick Sodium [Moles/Vol] 132 mmol/L Critically low 136-145 [facility] Comment on above: Performed By: #### B MP ####[facility] Yheolvibbm7342 [place] [phone]. Slick Davie Urea nitrogen [Mass/Vol] 56.0 mg/dL Critically high 7.0-18.[address] [facility] Comment on above: Performed By: #### B MP ####[facility] Tpnzxahonm6795 [place] [id number]. Slick Broderick Urea nitrogen/Creatinine [Mass ratio] 29.5 mg/mg Normal [facility] Comment on above: Performed By: #### B MP ####[facility] Geyftuwkfz9642 [place] [id number]. Slick Broderick T4on 03-28-2022 T4 [Mass/Vol] 4.90 ug/dL Normal 4.80-13.90 [facility] Comment on above: Performed By: #### T 4 ####[facility] [address]nvjrvtc[address] [place], [place] [address]Dr. Slick Broderick TSHon 03-28-2022 TSH 2.765 uIU/mL Normal 0.358-3.740 [facility] Comment on above: Performed By: #### T SH ####[facility] [address]jlhgah[address] [place], [place] [address]Dr. Slick Broderick TYPE AND SCREENon 03-28-2022 TYPE AND SCREEN Negative Normal [facility] Comment on above: Performed By: #### T NS ####[facility] [address] [place], [place] [address]Dr. Slick Broderick UA RANDOM W/MICROSCOPICon BACTERIA NONE SEEN Normal NONE SEEN [facility] Comment on above: Performed By: #### U AMIC ####[facility] Nkxeqpnulz8[address] [place] [id number]. Slick Broderick Bilirubin Ql (U) Negative Normal NEGATIVE [facility] Comment on above: Performed By: #### U AMIC ####[facility] Yfhywnwcrv4742 [place] [phone]. Slick Broderick CAST NONE SEEN Normal NONE SEEN [facility] Comment on above: Performed By: #### U AMIC ####[facility] Wtbxxkynxh6[address] [place] [address]Dr. Slick Broderick Clarity (U) CLEAR Normal CLEAR [facility] Comment on above: Performed By: #### U AMIC ####[facility] Cgrljavfxg[address] [place], [place] [address]Dr. Slick Broderick Color (U) LT. YELLOW Normal YELLOW [facility] Comment on above: Performed By: #### U AMIC ####[facility] Temzansxfp096[address] [place], [place] [address]Dr. Slick Broderick Crystals LM Nom (Urine sed) NONE SEEN Normal NONE SEEN [facility] Comment on above: Performed By: #### U AMIC ####[facility] Nbzezcwfsd715[address] [place], [place] [address]Dr. Slick Broderick Epithelial cells LM Ql (Urine sed) FEW Abnormal NONE SEEN /RARE [facility] Comment on above: Performed By: #### U AMIC ####[facility] Ggwitvxhgf23[address] [place], [place] [address]Dr. Slick Broderick Glucose Ql (U) Negative Normal NEGATIVE [facility] Comment on above: Performed By: #### U AMIC ####[facility] Nyducijnjy082[address] [place], [place] [address]Dr. Slick Broderick Hemoglobin Ql (U) MODERATE Abnormal NEGATIVE [facility] Comment on above: Performed By: #### U AMIC ####[facility] Cwqhwatnha234[address] [place], [place] [address]Dr. Slick Broderick Ketones Ql (U) Negative Normal NEGATIVE [facility] Comment on above: Performed By: #### U AMIC ####[facility] Yydflfdonp4[address] [place], [place] [address]Dr. Slick Broderick LEUKOCYTES TRACE Abnormal NEGATIVE [facility] Comment on above: Performed By: #### U AMIC ####[facility] Mfgkejmsam049[address] [place], [place] [address]Dr. Slick Broderick MUCOUS NONE SEEN Normal NONE SEEN [facility] Comment on above: Performed By: #### U AMIC ####[facility] Lhvjjfqqvn16[address] [place], [place] [address]Dr. Slick Broderick Nitrite Ql (U) Negative Normal NEGATIVE [facility] Comment on above: Performed By: #### U AMIC ####[facility] Tnbjzhqfia5122 [place] [phone]. Meaganwendie Davie pH (U) 6.0 [pH] Normal 5-9 [facility] Comment on above: Performed By: #### U AMIC ####[facility] Vliwokgbgn4692 [place] [address]Dr. Slick Broderick RBC 5-10 Abnormal 0-2 [facility] Comment on above: Performed By: #### U AMIC ####[facility] Rglwzdavwi2398 [place] [phone]. Slick Broderick SPEC GRAVITY <=1.005 Abnormal 1.005-<=1.025 [facility] Comment on above: Performed By: #### U AMIC ####[facility] Xpnsybnnfi36[address] [place], [place] [address]Dr. Slick Broderick UA PROTEIN Negative Normal NEGATIVE/ TRACE [facility] Comment on above: Performed By: #### U AMIC ####[facility] Jedtqvvfzc[address] [place], [place] [phone]. Slick Broderick Urobilinogen Qn (U) 0.2 {Hiren'U}/dL Normal 0.2 - 1. 0 [facility] Comment on above: Performed By: #### U AMIC ####[facility] Xqkchzdqlb[address] [place], [place] [address]Dr. Slick Broderick WBC 2-5 Abnormal [address]EN [facility] Comment on above: Performed By: #### U AMIC ####[facility] Znnhysvwfd[address] [place], [place] [address]Dr. Slick Broderick CBC AUTO DIFFon 03-27-2022 BASO # 0.0 103/ul Normal 0.0-0.[address] [facility] Comment on above: Performed By: #### C BC ####[facility] Ejnlqilllb7254[address] [place], [place] [address]Dr. Slick Broderick Basophils/100 WBC (Bld) 0.5 % Normal 0.2-2.[address] [facility] Comment on above: Performed By: #### C BC ####[facility] Bqcqlixnig7783 [place] [phone]. Slick Broderick EO # 0.4 103/ul Normal 0.0-0.[address] [facility] Comment on above: Performed By: #### C BC ####[facility] Ezwdxaadyt3508 [place] [address]Dr. Slick Broderick Eosinophils/100 WBC (Bld) 5.2 % Normal 0.9-7.0 [facility] Comment on above: Performed By: #### C BC ####[facility] Syfoqvhcff39[address] [place], [place] [address]Dr. Slick Broderick Erythrocyte distribution width (RBC) [Ratio] 13.1 % Normal 11.0-15.0 [facility] Comment on above: Performed By: #### C BC ####[facility] Ggxkgrcblq4[address] [place], [place] [address]Dr. Slick Broderick Hematocrit (Bld) [Volume fraction] 24.7 % Critically low 36.0-48.0 [facility] Comment on above: Performed By: #### C BC ####[facility] Qcmhmahfiu0565[address] [place], [place] [address]Dr. Slick Brodreick Hemoglobin (Bld) [Mass/Vol] 7.9 g/dL Critically low 12.0-16.0 [facility] Comment on above: Performed By: #### C BC ####[facility] Tbfvxipvcz8[address] [place], [place] [address]Dr. Slick Broderick IG # 0.06 10e3/ul Critically high 0.00-0.03 [facility] Comment on above: Performed By: #### C BC ####[facility] Xxyftsxwoj568[address] [place], [place] [address]Dr. Slick Broderick IG % 0.8 % Critically high 0.0-0.5 [facility] Comment on above: Performed By: #### C BC ####[facility] Ixqgccbfui5[address] [place], [place] [address]DrEmma Broderick LYMPH # 0.9 103/ul Critically low 1.2-3.8 [facility] Comment on above: Performed By: #### C BC ####[facility] Jxevxwozoi3059 [place] [phone]. Slick Broderick Lymphocytes/100 WBC (Bld) 11.1 % Critically low 20.5-60.0 [facility] Comment on above: Performed By: #### C BC ####[facility] Olpbhqekbs1813 [place] [address]Dr. Slick Broderick MANUAL DIFF REQ NO Normal [facility] Comment on above: Performed By: #### C BC ####[facility] Eoxuhpklda4918 [place] [phone]. Slick Broderick MCH (RBC) [Entitic mass] 29.7 pg Normal 26.7-34.[address] [facility] Comment on above: Performed By: #### C BC ####[facility] Nrlvyogkqd[address] [place], [place] [address]Dr. Slick Broderick MCHC (RBC) [Mass/Vol] 32.0 g/dL Normal 29.9-35.[address] [facility] Comment on above: Performed By: #### C BC ####[facility] Ormcsmpkov55[address] [place] [address]Dr. Slick Broderick MCV (RBC) [Entitic vol] 92.9 fL Normal 81.0-99.[address] [facility] Comment on above: Performed By: #### C BC ####[facility] Sncrjdazty4184 [place] [address]Dr. Slick Broderick MONO # 0.8 103/ul Normal 0.3-0.[address] [facility] Comment on above: Performed By: #### C BC ####[facility] Ycbflfhfig[address] [place], [place] [address]Dr. Slick Broderick Monocytes/100 WBC (Bld) 9.5 % Normal 1.7-12.[address] [facility] Comment on above: Performed By: #### C BC ####[facility] Oluogsmnwh6747 [place] [phone] Broderick NEUT # 5.8 103/ul Normal 1.4-6.5 [facility] Comment on above: Performed By: #### C BC ####[facility] Bbppcyfypl0234 [place] [phone] Broderick Neutrophils/100 WBC (Bld) 72.9 % Normal 43.0-75.0 [facility] Comment on above: Performed By: #### C BC ####[facility] Aramczmzkk1814 [place] [phone] Broderick Platelet mean volume (Bld) [Entitic vol] 8.9 fL Critically low 9.5-13.5 [facility] Comment on above: Performed By: #### C BC ####[facility] Nmtqzfkuds4243 [place] [address]DrEmma Broderick PLT 220 103/ul Normal 150-450 [facility] Comment on above: Performed By: #### C BC ####[facility] Dibqjjjzzc6312 [place] [phone] Broderick RBC 2.66 106/ul Critically low 4.20-5.40 [facility] Comment on above: Performed By: #### C BC ####[facility] Tgtbdknulc2050 [place] [phone] Broderick WBC 7.9 103/ul Normal 4.0-11.0 [facility] Comment on above: Performed By: #### C BC ####[facility] Izvsgcossn2886 [place] [phone] Broderick OCC BLD IMMUNO SCREENon 03-12 OCCULT BLOOD Positive Abnormal NEGATIVE [facility] Comment on above: Performed By: #### O BSCRN ####[facility] Habmegyjqo7998 [place] [phone] Broderick PROF 14(COMP METB)on 022 Albumin [Mass/Vol] 3.2 g/dL Critically low 3.4-5.0 [facility] Comment on above: Performed By: #### C MP ####[facility] Blejgpprwt8126 [place] [address]DrEmma Broderick Albumin/Globulin [Mass ratio] 0.9 {ratio} Normal [facility] Comment on above: Performed By: #### C MP ####[facility] Jtnklladyf6383 [place] [address]Dr. Slick Broderick ALP [Catalytic activity/Vol] 101 U/L Normal 46-116 [facility] Comment on above: Performed By: #### C MP ####[facility] Sfjlcsvxtn6100 [place] [address]Dr. Slick Broderick ALT [Catalytic activity/Vol] 28 U/L Normal 14-59 [facility] Comment on above: Performed By: #### C MP ####[facility] Dhymhvjvzb[address] [place], [place] [address]Dr. Slick Broderick Anion gap [Moles/Vol] 11.5 mmol/L Normal [facility] Comment on above: Performed By: #### C MP ####[facility] Rszjmzybjt7[address] [place], [place] [address]Dr. Slick Broderick AST [Catalytic activity/Vol] 21 U/L Normal 15-37 [facility] Comment on above: Performed By: #### C MP ####[facility] Ycdxhmirfq[address] [place], [place] [address]Dr. Slick Broderick Bilirubin [Mass/Vol] 0.2 mg/dL Normal 0.2-1.0 [facility] Comment on above: Performed By: #### C MP ####[facility] Xqxygwzjoq50[address] [place], [place] [address]Dr. Slick Broderick Calcium [Mass/Vol] 9.3 mg/dL Normal 8.5-10.1 [facility] Comment on above: Performed By: #### C MP ####[facility] Zqwidkbowi7[address] [place], [place] [address]Dr. Slick Davie Chloride [Moles/Vol] 93 mmol/L Critically low 98-107 [facility] Comment on above: Performed By: #### C MP ####[facility] Ibzbcysqtq3103 [place] [address]Dr. Slick Davie CO2 [Moles/Vol] 27.3 mmol/L Normal 21.0-32.0 [facility] Comment on above: Performed By: #### C MP ####[facility] Qghzuvftiy1645 [place] [phone]. Slick Broderick Creatinine [Mass/Vol] 1.98 mg/dL Critically high 0.55-1.02 [facility] Comment on above: Performed By: #### C MP ####[facility] Jxiuqtrgpn4420 [place] [phone]. Slick Davie EGFR-AF [place] 30 mL/min/1.73m2 Critically low >=60 [facility] Comment on above: Performed By: #### C MP ####[facility] Sbkfvjvfbs1109 [place] [phone]. Slick Davie EGFR-NON AF [place] 25 mL/min/1.73m2 Critically low >=60 [facility] Comment on above: Performed By: #### C MP ####[facility] Xovccsgkes1844 [place] [phone]. Slick Davie Globulin (S) [Mass/Vol] 3.6 g/dL Normal [facility] Comment on above: Performed By: #### C MP ####[facility] Vuurnshkpb7107 [place] [phone]. Slick Broderick Glucose [Mass/Vol] 123 mg/dL Critically high 74-106 [facility] Comment on above: Performed By: #### C MP ####[facility] Jffxzfoelt2480 [place] [phone]. Slick Davie Potassium [Moles/Vol] 3.8 mmol/L Normal 3.5-5.1 [facility] Comment on above: Performed By: #### C MP ####[facility] Yvinydzuad8898 [place] [phone]. Slick Davie Protein [Mass/Vol] 6.8 g/dL Normal 6.4-8.2 [facility] Comment on above: Performed By: #### C MP ####[facility] Qehxtdujim0016 [place] [phone]. Slick Broderick Sodium [Moles/Vol] 128 mmol/L Critically low 136-[address] [facility] Comment on above: Performed By: #### C MP ####[facility] Nfvctketsu5188 [place] [phone]. Slick Broderick Urea nitrogen [Mass/Vol] 64.0 mg/dL Critically high 7.0-18.0 [facility] Comment on above: Performed By: #### C MP ####[facility] Xwiqvrbhjg4008 [place] [phone]. Slick Broderick Urea nitrogen/Creatinine [Mass ratio] 32.3 mg/mg Normal [facility] Comment on above: Performed By: #### C MP ####[facility] Gznhxrvuyn3982 [place] [address]Dr. Slick Broderick TROPONIN, HIGH SENSITIVITYon 03-27-2022 HSTROP 9.0 pg/mL Normal 4.0-51.3 [facility] Comment on above: Result Comment: CUT- OFF POINTS HAVE BEEN ESTABLISHED BASED ON THE FOURTH UNIVERSAL DEFINITIONS OF MYOCARDIALINFARCTION. THE UPPER REFERENCE LIMIT (URL) OF TROPONIN, DEFINED THE 99TH PERCENTILE OFcTnI DISTRIBUTION IN A REFERENCE POPULATION, HAS BEEN CONFIRMED THE DECISION THRESHOLDFOR PR DIAGNOSIS. Performed By: #### H STROPN ####[facility] Qvzllbwsqj6879 [place] [address]Dr. Slick Broderick Progress Noteson 03-24-2022 General Assignment Reporter Authentication Interface Message Text 1:32 AM EMERGENCY TRIAGE, TREAT AND TRANSPORT (ET3) DOCUMENTATION OF TELEHEALTH VISIT Date / Time: 03/24/2022 / 1:32 AM Name: Linda Nascimento : 1950 SSN: [id number] EMS Agency: [facility] [] Verbal consent obtained [x] [...] Completed by: Chidi Conte MD Normal The [facility] T4, T3U, FTI LABCORPon 02-12 Free Thyroxine Index 2.3 Normal 1.2-4.9 [facility] Comment on above: Performed By: #### T HYLC ####[facility] Jlpfhzxcuc9184 [place], [place] [address]Zj. Slick Broderick T3 Uptake 31 % Normal 24-39 [facility] Comment on above: Performed By: #### T HYLC ####[facility] Infrvzncxd8036 [place], [place] [address]Wi. Slick Broderick T4 [Mass/Vol] 7.4 ug/dL Normal 4.5-12.0 [facility] Comment on above: Performed By: #### T HYLC ####[facility] Qmvccxplxe8169 [place], [place] [address]Eq. Slick Broderick VIT D 25-OH LABCORPon 2021 Vitamin D, 25-Hydroxy 58.7 ng/mL Normal 30.0-100.[address] [facility] Comment on above: Result Comment: Loki min D deficiency has been defined by the [place] of[employer]icine and an Endocrine Society practice guideline as alevel of serum 25-OH vitamin D less than 20 ng/mL (1,2).The Endocrine Society went on to further define vitamin Dinsufficiency as a level between 21 and 29 ng/mL (2).1. IOM ([place] of [employer]). 2010. Dietary reference intakes for calcium and D. [place]: The National Academies Press.2. Maryam MF, Franklin PENA, Ángela SCHAEFER, et al. Evaluation, treatment, and prevention of vitamin D deficiency: an Endocrine Society clinical practice guideline. JCEM. 2010; 96(7):1911-30. Performed By: #### V ITADLC ####[facility] Btehwhsega67[address] [place] [address]Dr. Slick Broderick CBC AUTO DIFFon 02-11-2022 BASO # 0.0 103/ul Normal 0.0-0.1 [facility] Comment on above: Performed By: #### C BC ####[facility] Zcywrkuziu[address] [place], [place] [address]Dr. Slick Broderick Basophils/100 WBC (Bld) 0.6 % Normal 0.2-2.[address] [facility] Comment on above: Performed By: #### C BC ####[facility] Nsqxplldzj08[address] [place], [place] [address]Dr. Slick Broderick EO # 0.3 103/ul Normal 0.0-0.[address] [facility] Comment on above: Performed By: #### C BC ####[facility] Qtpyzcbuef687[address] [place], [place] [address]Dr. Slick Broderick Eosinophils/100 WBC (Bld) 4.6 % Normal 0.9-7.[address] [facility] Comment on above: Performed By: #### C BC ####[facility] Hjsvhpsnea13[address] [place], [place] [address]Dr. Slick Broderick Erythrocyte distribution width (RBC) [Ratio] 14.0 % Normal 11.0-15.[address] [facility] Comment on above: Performed By: #### C BC ####[facility] Rblidznfre[address] [place], [place] [address]Dr. Slick Broderick Hematocrit (Bld) [Volume fraction] 28.4 % Critically low 36.0-48.[address] [facility] Comment on above: Performed By: #### C BC ####[facility] Lwcicvesji1499 [place] [phone]. Slick Broderick Hemoglobin (Bld) [Mass/Vol] 9.3 g/dL Critically low 12.0-16.0 [facility] Comment on above: Performed By: #### C BC ####[facility] Uzbuhlrfei0956 [place] [address]Dr. Slick Broderick IG # 0.03 10e3/ul Normal 0.00-0.03 [facility] Comment on above: Performed By: #### C BC ####[facility] Eseqkvfyes5615 [place] [address]Dr. Slick Broderick IG % 0.5 % Normal 0.0-0.5 [facility] Comment on above: Performed By: #### C BC ####[facility] Ckebioheli[address] [place], [place] [address]DrEmma Slick Broderick LYMPH # 0.6 103/ul Critically low 1.2-3.8 [facility] Comment on above: Performed By: #### C BC ####[facility] Qluckhlgyv8520 [place] [address]Dr. Slick Broderick Lymphocytes/100 WBC (Bld) 9.5 % Critically low 20.5-60.0 [facility] Comment on above: Performed By: #### C BC ####[facility] Snisaoqziy5368 [place] [address]Dr. Slick Broderick MANUAL DIFF REQ NO Normal [facility] Comment on above: Performed By: #### C BC ####[facility] Nvpuoaezur0435 [place] [phone]. Slick Broderick MCH (RBC) [Entitic mass] 30.5 pg Normal 26.7-34.[address] [facility] Comment on above: Performed By: #### C BC ####[facility] Ciawuvgnzm9350 [place] [phone]. Slick Broderick MCHC (RBC) [Mass/Vol] 32.7 g/dL Normal 29.9-35.[address] [facility] Comment on above: Performed By: #### C BC ####[facility] Lrkyrrydwh1240 [place] [phone]. Slick Broderick MCV (RBC) [Entitic vol] 93.1 fL Normal 81.0-99.0 [facility] Comment on above: Performed By: #### C BC ####[facility] Oquegwdzvp6487 [place] [phone]. Slick Broderick MONO # 0.6 103/ul Normal 0.3-0.[address] [facility] Comment on above: Performed By: #### C BC ####[facility] Zvhowlrsbo4254 [place] [phone]. Slick Davie Monocytes/100 WBC (Bld) 8.4 % Normal 1.7-12.0 [facility] Comment on above: Performed By: #### C BC ####[facility] Mstabzowar18[address] [place], [place] [address]Dr. Slick Broderick NEUT # 5.0 103/ul Normal 1.4-6.[address] [facility] Comment on above: Performed By: #### C BC ####[facility] Waiqlfnqde7067 [place] [phone]. Slick Davie Neutrophils/100 WBC (Bld) 76.4 % Critically high 43.0-75.0 [facility] Comment on above: Performed By: #### C BC ####[facility] Phyvqhercm1694 [place] [phone]. Slick Davie Platelet mean volume (Bld) [Entitic vol] 9.3 fL Critically low 9.5-13.[address] [facility] Comment on above: Performed By: #### C BC ####[facility] Wcrstkumnl6878 [place] [phone]. Slick Davie PLT 192 103/ul Normal 150-[address] [facility] Comment on above: Performed By: #### C BC ####[facility] Ucjzjttayx3504 [place] [phone]. Slick Broderick RBC 3.05 106/ul Critically low 4.20-5.40 [facility] Comment on above: Performed By: #### C BC ####[facility] Arhrhxopvz6865 [place], [place] [address]Jw. Slick Broderick WBC 6.6 103/ul Normal 4.0-11.0 [facility] Comment on above: Performed By: #### C BC ####[facility] Bfprvggrif3234 [place], [place] [address]Jy. Slick Broderick IRONon 02-11-2022 Iron [Mass/Vol] 62.0 ug/dL Normal 50.0-170.0 [facility] Comment on above: Performed By: #### I YUNIOR ####[facility] Jvpepiahoj5129 [place] [phone]. Slick Broderick LIPID PROFILEon 02-11-2022 CHOL-HDL RATIO NORM SEE BELOW Normal [facility] Comment on above: Result Comment: 3.3 - 4.4 LOW RISK 4.4 - 7.1 AVERAGE RISK 7.1 - 11.0 MODERATE RISK >11.0 HIGH RISK Performed By: #### C MP, LIPID, TSH ####[facility] Dmpzfuopge0873 [place] [phone]. Slick Broderick Cholesterol [Mass/Vol] 204 mg/dL Critically high <=[address] [facility] Comment on above: Performed By: #### C MP, LIPID, TSH ####[facility] Xingkubmfl3113 [place] [phone]. Slick Broderick Cholesterol in HDL [Mass/Vol] 53 mg/dL Normal 40-[address] [facility] Comment on above: Performed By: #### C MP, LIPID, TSH ####[facility] Mgqixddrfu3992 [place] [phone]. Slick Broderick Cholesterol in LDL [Mass/Vol] 134.0 mg/dL Normal [facility] Comment on above: Performed By: #### C MP, LIPID, TSH ####[facility] Rtgjmclakz9471 [place] [phone]. Slick Broderick Cholesterol.total/C holesterol in HDL [Mass ratio] 3.8 {ratio} Normal [facility] Comment on above: Performed By: #### C MP, LIPID, TSH ####[facility] Zpdlncjdkz9628 [place] [address]Dr. Slick Broderick HDL NORMAL > or = 60 mg/dl - LO W CARDIOVASCULAR RISK <40 mg/dl - HIGH CARDIOVASCULAR RISK Normal [facility] Comment on above: Performed By: #### C MP, LIPID, TSH ####[facility] Fppefmkgub0044 [place] [address]Dr. Slick Broderick LDL CALC NORMAL SEE BELOW Normal [facility] Comment on above: Result Comment: <100 mg/dl OPTIMAL 100 - 129 mg/dl NEAR OR ABOVE OPTIMAL 130 - 159 mg/dl BORDERLINE HIGH 160 - 189 mg/dl HIGH >190 mg/dl VERY HIGH Performed By: #### C MP, LIPID, TSH ####[facility] Tztutvnocv4535 [place] [address]Dr. Slick Broderick Triglyceride [Mass/Vol] 85 mg/dL Normal <=150 [facility] Comment on above: Performed By: #### C MP, LIPID, TSH ####[facility] Zwdgcrakrh8303 [place] [address]Dr. Slick Broderick VLDL CALC 17.0 mg/dL Normal [facility] Comment on above: Performed By: #### C MP, LIPID, TSH ####[facility] Dikolnftqj9730 [place] [address]Dr. Slick Broderick PROF 14(COMP METB)on 022 Albumin [Mass/Vol] 3.5 g/dL Normal 3.4-5.0 [facility] Comment on above: Performed By: #### C MP, LIPID, TSH ####[facility] Dqcmgtiycn2254 [place] [address]Dr. Slick Broderick Albumin/Globulin [Mass ratio] 0.9 {ratio} Normal [facility] Comment on above: Performed By: #### C MP, LIPID, TSH ####[facility] Xisclmwdpo8473 [place] [address]Dr. Slick Broderick ALP [Catalytic activity/Vol] 93 U/L Normal 46-116 [facility] Comment on above: Performed By: #### C MP, LIPID, TSH ####[facility] Yhmzhfeamz2400 [place] [phone]. Slick Broderick ALT [Catalytic activity/Vol] 21 U/L Normal 14-[address] [facility] Comment on above: Performed By: #### C MP, LIPID, TSH ####[facility] Yuvicisrwm7199 [place] [phone]. Slick Broderick Anion gap [Moles/Vol] 13.7 mmol/L Normal [facility] Comment on above: Performed By: #### C MP, LIPID, TSH ####[facility] Szhdrejwrw7220 [place] [address]Dr. Slick Broderick AST [Catalytic activity/Vol] 13 U/L Critically low 15-37 [facility] [facility] Comment on above: Performed By: #### C MP, LIPID, TSH ####[facility] [address]dnec[address] [place] [address]Dr. Slick Broderick Bilirubin [Mass/Vol] 0.4 mg/dL Normal 0.2-1.0 [facility] Comment on above: Performed By: #### C MP, LIPID, TSH ####[facility] Cebgmprsoz[address] [place] [address]Dr. Slick Broderick Calcium [Mass/Vol] 9.2 mg/dL Normal 8.5-10.1 [facility] Comment on above: Performed By: #### C MP, LIPID, TSH ####[facility] Wtduxxmzez[address] [place] [address]Dr. Silck Broderick Chloride [Moles/Vol] 96 mmol/L Critically low 98-[address] [facility] Comment on above: Performed By: #### C MP, LIPID, TSH ####[facility] Swhyvicpsb[address] [place] [id number]. Slick Broderick CO2 [Moles/Vol] 27.8 mmol/L Normal 21.0-32.0 [facility] Comment on above: Performed By: #### C MP, LIPID, TSH ####[facility] Sdyfixkkmy[address] [place] [address]Dr. Slick Broderick Creatinine [Mass/Vol] 1.52 mg/dL Critically high 0.55-1.02 [facility] Comment on above: Performed By: #### C MP, LIPID, TSH ####[facility] Saufgfksuz[address] [place] [address]Dr. Slick Broderick EGFR-AF [place] 41 mL/min/1.73m2 Critically low >=60 [facility] Comment on above: Performed By: #### C MP, LIPID, TSH ####[facility] Qwkdgppubk[address] [place] [address]Dr. Meaganlan Broderick EGFR-NON AF [place] 34 mL/min/1.73m2 Critically low >=60 [facility] Comment on above: Performed By: #### C MP, LIPID, TSH ####[facility] Lcyqbbtlzf[address] [place] [address]Dr. Slick Broderick Globulin (S) [Mass/Vol] 3.7 g/dL Normal [facility] Comment on above: Performed By: #### C MP, LIPID, TSH ####[facility] Cjrizmokak[address] [place], [place] [address]Dr. Slick Broderick Glucose [Mass/Vol] 96 mg/dL Normal 74-106 [facility] Comment on above: Performed By: #### C MP, LIPID, TSH ####[facility] Ssalycrcvq69[address] [place], [place] [address]Dr. Slick Broderick Potassium [Moles/Vol] 4.5 mmol/L Normal 3.5-5.1 [facility] Comment on above: Performed By: #### C MP, LIPID, TSH ####[facility] Feiywjfzyo8[address] [place], [place] [address]Dr. Meaganlan Broderick Protein [Mass/Vol] 7.2 g/dL Normal 6.4-8.2 [facility] Comment on above: Performed By: #### C MP, LIPID, TSH ####[facility] Ngubsvxycf87[address] [place], [place] [address]Dr. Slick Broderick Sodium [Moles/Vol] 133 mmol/L Critically low 136-145 [facility] Comment on above: Performed By: #### C MP, LIPID, TSH ####[facility] Wqndqxhutc[address] [place] [address]Dr. Slick Broderick Urea nitrogen [Mass/Vol] 37.0 mg/dL Critically high 7.0-18.0 [facility] Comment on above: Performed By: #### C MP, LIPID, TSH ####[facility] Umtanrwhbs[address] [place] [address]Dr. Slick Broderick Urea nitrogen/Creatinine [Mass ratio] 24.3 mg/mg Normal [facility] Comment on above: Performed By: #### C MP, LIPID, TSH ####[facility] Kzarphoays8[address] [place] [address]Dr. Slick Broderick TSHon 02-11-2022 TSH 3.993 uIU/mL Critically high 0.358-3.740 [facility] Comment on above: Performed By: #### C MP, LIPID, TSH ####[facility] Dxbwugvoxe13[address] [place], [place] [address]Dr. Slick Broderick PRBC LEUKOREDUCEDon 12-18-19 PRBC LEUKOREDUCED Normal [facility] Comment on above: Performed By: #### P RBC ####[facility] Mgommfnjvo8270[address] [place], [place] [address]Dr. Slick Broderick PRBC LEUKOREDUCED Cross Match Result Compatible Unit Blood Type O Pos Unit Number [id number] Status Information Transfused Product ID Red Blood Cells Product Code [id number] Normal [facility] Comment on above: Performed By: #### P RBC ####[facility] Iwltfdaymb6936[address] [place], [place] [address]Dr. Slick Broderick H PYLORI ANTIBODY IGGon H. PYLORI IGG ABS 0.18 Index Value Normal 0.00-0.79 [facility] Comment on above: Result Comment: Nega tive <0.80 Equivocal 0.80 - 0.89 Positive >0.89 Performed By: #### H PYLLC ####[facility] Muwdwrkklt6769[address] [place], [place] [address]Dr. Slick Davie BNPon 12-14-2021 Natriuretic peptide B (Bld) [Mass/Vol] 846.0 pg/mL Normal <=900.[address] [facility] Comment on above: Performed By: #### C MP, BNP ####[facility] Awiefvfqze5558[address] [place], [place] [address]Dr. Meaganwendie Davie CBC AUTO DIFFon 12-14-2021 BASO # 0.1 103/ul Normal 0.0-0.[address] [facility] Comment on above: Performed By: #### C BC ####[facility] Ynapxnsomn8396[address] [place], [place] [address]Dr. Slick Broderick Basophils/100 WBC (Bld) 0.7 % Normal 0.2-2.[address] [facility] Comment on above: Performed By: #### C BC ####[facility] Cknxluxfvt7579[address] [place], [place] [address]Dr. Slick Broderick EO # 0.3 103/ul Normal 0.0-0.[address] [facility] Comment on above: Performed By: #### C BC ####[facility] Jxnlorqnni39026[address] [place], [place] [address]Dr. Slick Broderikc Eosinophils/100 WBC (Bld) 4.6 % Normal 0.9-7.[address] [facility] Comment on above: Performed By: #### C BC ####[facility] Oibswusoau5896[address] [place], [place] [address]Dr. Slick Broderick Erythrocyte distribution width (RBC) [Ratio] 20.0 % Critically high 11.0-15.[address] [facility] Comment on above: Performed By: #### C BC ####[facility] Ntjsgtbxdv5546[address] [place], [place] [address]Dr. Slick Broderick Hematocrit (Bld) [Volume fraction] 29.1 % Critically low 36.0-48.[address] [facility] Comment on above: Performed By: #### C BC ####[facility] Hzcjrrwkll9432[address] [place], [place] [address]Dr. Slick Broderick Hemoglobin (Bld) [Mass/Vol] 9.1 g/dL Critically low 12.0-16.[address] [facility] Comment on above: Performed By: #### C BC ####[facility] Gsuzfyhwmr1329[address] [place], [place] [address]Dr. Slick Broderick IG # 0.06 10e3/ul Critically high 0.00-0.03 [facility] Comment on above: Performed By: #### C BC ####[facility] Nstvnkfzwg86[address] [place] [address]DrEmma Slick Broderick IG % 0.9 % Critically high 0.0-0.5 [facility] Comment on above: Performed By: #### C BC ####[facility] Ibroxxgaqh0960 [place] [address]DrEmma Slick Davie LYMPH # 0.8 103/ul Critically low 1.2-3.8 [facility] Comment on above: Performed By: #### C BC ####[facility] Ctstovapkd264[address] [place], [place] [address]DrEmma Slick Davie Lymphocytes/100 WBC (Bld) 11.2 % Critically low 20.5-60.0 [facility] Comment on above: Performed By: #### C BC ####[facility] Udiotapxwc9677[address] [place], [place] [address]DrEmma Slick Davie MANUAL DIFF REQ NO Normal [facility] Comment on above: Performed By: #### C BC ####[facility] Fsdviyfmoo4112[address] [place], [place] [address]DrEmma Slick Broderick MCH (RBC) [Entitic mass] 30.5 pg Normal 26.7-34.0 [facility] Comment on above: Performed By: #### C BC ####[facility] Ljkravdhdo7765[address] [place], [place] [address]DrEmma Slick Davie MCHC (RBC) [Mass/Vol] 31.3 g/dL Normal 29.9-35.[address] [facility] Comment on above: Performed By: #### C BC ####[facility] Etxseiwwct9836[address] [place], [place] [address]DrEmma Slick Davie MCV (RBC) [Entitic vol] 97.7 fL Normal 81.0-99.[address] [facility] Comment on above: Performed By: #### C BC ####[facility] Vnmemigwve5067[address] [place], [place] [address]Dr. Slick Broderick MONO # 0.7 103/ul Normal 0.3-0.[address] [facility] Comment on above: Performed By: #### C BC ####[facility] Mxmmoihcje[address] [place] [address]Dr. Slick Broderick Monocytes/100 WBC (Bld) 9.7 % Normal 1.7-12.[address] [facility] Comment on above: Performed By: #### C BC ####[facility] Ykmowhhuuu34[address] [place] [address]Dr. Slick Broderick NEUT # 4.9 103/ul Normal 1.4-6.[address] [facility] Comment on above: Performed By: #### C BC ####[facility] Umkyddmscf2528 [place] [address]Dr. Slick Broderick Neutrophils/100 WBC (Bld) 72.9 % Normal 43.0-75.[address] [facility] Comment on above: Performed By: #### C BC ####[facility] Tnanlbivgu7[address] [place] [address]Dr. Slick Broderick Platelet mean volume (Bld) [Entitic vol] 8.9 fL Critically low 9.5-13.[address] [facility] Comment on above: Performed By: #### C BC ####[facility] Ztjvcelkih480[address] [place] [address]Dr. Slick Broderick PLT 239 103/ul Normal 150-[address] [facility] Comment on above: Performed By: #### C BC ####[facility] Sutwrxihnk27[address] [place] [address]Dr. Slick Broderick RBC 2.98 106/ul Critically low 4.20-5.40 [facility] Comment on above: Performed By: #### C BC ####[facility] Wwldjysffj74[address] [place], [place] [address]Dr. Slick Broderick WBC 6.8 103/ul Normal 4.0-11.[address] [facility] Comment on above: Performed By: #### C BC ####[facility] Rrmxdkwsyw724[address] [place], [place] [address]Dr. Slick Broderick BASO # 0.1 103/ul Normal 0.0-0.1 [facility] Comment on above: Performed By: #### C BC ####[facility] Yskxrswuwt4546 [place] [address]Dr. Slick Broderick Basophils/100 WBC (Bld) 0.9 % Normal 0.2-2.[address] [facility] Comment on above: Performed By: #### C BC ####[facility] Czhualpsaj7060 [place] [address]Dr. Slick Broderick EO # 0.3 103/ul Normal 0.0-0.[address] [facility] Comment on above: Performed By: #### C BC ####[facility] Hetzqxkbbk17[address] [place], [place] [address]Dr. Slick Broderick Eosinophils/100 WBC (Bld) 4.9 % Normal 0.9-7.[address] [facility] Comment on above: Performed By: #### C BC ####[facility] Exjodpozff3620[address] [place], [place] [address]Dr. Slick Broderick Erythrocyte distribution width (RBC) [Ratio] 20.3 % Critically high 11.0-15.0 [facility] Comment on above: Performed By: #### C BC ####[facility] Quojhscann9545[address] [place], [place] [address]Dr. Slick Broderick Hematocrit (Bld) [Volume fraction] 27.6 % Critically low 36.0-48.0 [facility] Comment on above: Performed By: #### C BC ####[facility] Cikizikakn6189[address] [place], [place] [address]Dr. Slick Broderick Hemoglobin (Bld) [Mass/Vol] 8.7 g/dL Critically low 12.0-16.[address] [facility] Comment on above: Performed By: #### C BC ####[facility] Tullllabuv15[address] [place], [place] [address]Dr. Slick Broderick IG # 0.05 10e3/ul Critically high 0.00-0.03 [facility] Comment on above: Performed By: #### C BC ####[facility] Yiwwynqwwl54[address] [place], [place] [address]Dr. Slick Broderick IG % 0.7 % Critically high 0.0-0.5 [facility] Comment on above: Performed By: #### C BC ####[facility] Wrxocwxbkp1855 [place] [address]DrEmma Broderick LYMPH # 0.9 103/ul Critically low 1.2-3.8 [facility] Comment on above: Performed By: #### C BC ####[facility] Ptiyxaexmf8624 [place] [address]Dr. Slick Broderick Lymphocytes/100 WBC (Bld) 13.1 % Critically low 20.5-60.[address] [facility] Comment on above: Performed By: #### C BC ####[facility] Oywoqzmovl97[address] [place], [place] [address]DrEmma Broderick MANUAL DIFF REQ NO Normal [facility] Comment on above: Performed By: #### C BC ####[facility] Rcurbicvlq2477 [place] [address]Dr. Slick Broderick MCH (RBC) [Entitic mass] 31.0 pg Normal 26.7-34.[address] [facility] Comment on above: Performed By: #### C BC ####[facility] Owgjiisczl0312[address] [place], [place] [address]Dr. Meaganwendie Broderick MCHC (RBC) [Mass/Vol] 31.5 g/dL Normal 29.9-35.[address] [facility] Comment on above: Performed By: #### C BC ####[facility] Ebnfigrbpm5158[address] [place], [place] [address]DrEmma Broderick MCV (RBC) [Entitic vol] 98.2 fL Normal 81.0-99.[address] [facility] Comment on above: Performed By: #### C BC ####[facility] Kffshrlkdm6678[address] [place], [place] [address]DrEmma Broderick MONO # 0.8 103/ul Normal 0.3-0.[address] [facility] Comment on above: Performed By: #### C BC ####[facility] Comutjaxma499[address] [place], [place] [address]DrEmma Broderick Monocytes/100 WBC (Bld) 11.4 % Normal 1.7-12.0 [facility] Comment on above: Performed By: #### C BC ####[facility] Xidfamxwpu88[address] [place] [address]Dr. Slick Broderick NEUT # 4.8 103/ul Normal 1.4-6.5 [facility] Comment on above: Performed By: #### C BC ####[facility] Liofyhwdrn0561 [place] [address]Dr. Slick Broderick Neutrophils/100 WBC (Bld) 69.0 % Normal 43.0-75.0 [facility] Comment on above: Performed By: #### C BC ####[facility] Pdwlofgwiq06[address] [place], [place] [address]Dr. Slick Broderick Platelet mean volume (Bld) [Entitic vol] 9.3 fL Critically low 9.5-13.5 [facility] Comment on above: Performed By: #### C BC ####[facility] Fznfsmcnqm1547 [place] [address]Dr. Slick Broderick PLT 229 103/ul Normal 150-450 [facility] Comment on above: Performed By: #### C BC ####[facility] Hxfzvktedv[address] [place], [place] [address]Dr. Slick Broderick RBC 2.81 106/ul Critically low 4.20-5.40 [facility] Comment on above: Performed By: #### C BC ####[facility] Elaixgrptw7[address] [place], [place] [address]Dr. Slick Broderick WBC 7.0 103/ul Normal 4.0-11.0 [facility] Comment on above: Performed By: #### C BC ####[facility] Kibverfxqv14[address] [place], [place] [address]DrEmma Slick Broderick POINT OF CARE GLUCOSEon 07-0 Glucose [Mass/Vol] 255 mg/dL Critically high 74-106 [facility] Comment on above: Performed By: #### P OCGLUC ####[facility] Zykqrukgtv7137[address] [place], [place] [address]Dr. Slick Broderick PROF 14(COMP METB)on 022 Albumin [Mass/Vol] 2.3 g/dL Critically low 3.4-5.0 [facility] Comment on above: Performed By: #### C MP, BNP ####[facility] Hheeabtglh17[address] [place] [address]Dr. Slick Broderick Albumin/Globulin [Mass ratio] 0.6 {ratio} Normal [facility] Comment on above: Performed By: #### C MP, BNP ####[facility] Kyavjfgmpa57[address] [place] [address]Dr. Slick Broderick ALP [Catalytic activity/Vol] 94 U/L Normal 46-116 [facility] Comment on above: Performed By: #### C MP, BNP ####[facility] Zvacdiyeim6038 [place] [address]Dr. Slick Broderick ALT [Catalytic activity/Vol] 17 U/L Normal 14-59 [facility] Comment on above: Performed By: #### C MP, BNP ####[facility] Nlgdkmgsfm4277 [place] [address]Dr. Slick Broderick Anion gap [Moles/Vol] 11.6 mmol/L Normal [facility] Comment on above: Performed By: #### C MP, BNP ####[facility] Dritofjqlf4640 [place] [address]Dr. Slick Broderick AST [Catalytic activity/Vol] 13 U/L Critically low 15-37 [facility] Comment on above: Performed By: #### C MP, BNP ####[facility] Zhxakhhxpb7602 [place] [address]Dr. Slick Broderick Bilirubin [Mass/Vol] 0.3 mg/dL Normal 0.2-1.0 [facility] Comment on above: Performed By: #### C MP, BNP ####[facility] Ilajsrmadt9433 [place] [address]Dr. Slick Broderick Calcium [Mass/Vol] 7.9 mg/dL Critically low 8.5-10.1 [facility] Comment on above: Performed By: #### C MP, BNP ####[facility] Brwnclfadc4748 [place] [address]Dr. Slick Broderick Chloride [Moles/Vol] 104 mmol/L Normal 98-[address] [facility] Comment on above: Performed By: #### C MP, BNP ####[facility] Juzkfhaqcf1923 [place] [address]Dr. Slick Broderick CO2 [Moles/Vol] 25.1 mmol/L Normal 21.0-32.0 [facility] Comment on above: Performed By: #### C MP, BNP ####[facility] Oebprpdjka3063 [place] [address]Dr. Slick Broderick Creatinine [Mass/Vol] 1.64 mg/dL Critically high 0.55-1.02 [facility] Comment on above: Performed By: #### C MP, BNP ####[facility] Zhetncztrz7[address] [place], [place] [address]Dr. Slick Broderick EGFR-AF [place] 37 mL/min/1.73m2 Critically low >=60 [facility] Comment on above: Performed By: #### C MP, BNP ####[facility] Jptytpldic[address] [place], [place] [address]Dr. Slick Broderick EGFR-NON AF [place] 31 mL/min/1.73m2 Critically low >=60 [facility] Comment on above: Performed By: #### C MP, BNP ####[facility] Yacpneqojy0047[address] [place], [place] [address]Dr. Slick Broderick Globulin (S) [Mass/Vol] 3.6 g/dL Normal [facility] Comment on above: Performed By: #### C MP, BNP ####[facility] Gadkirvyqg7594 [place] [address]Dr. Slick Broderick Glucose [Mass/Vol] 100 mg/dL Normal 74-106 [facility] Comment on above: Performed By: #### C MP, BNP ####[facility] Itpndugigu3334[address] [place], [place] [address]Dr. Slick Broderick Potassium [Moles/Vol] 4.7 mmol/L Normal 3.5-5.1 [facility] Comment on above: Performed By: #### C MP, BNP ####[facility] Ucdfrltbay0617[address] [place], [place] [address]Dr. Slick Broderick Protein [Mass/Vol] 5.9 g/dL Critically low 6.4-8.2 [facility] Comment on above: Performed By: #### C MP, BNP ####[facility] Wpqkkfcdwp8308[address] [place], [place] [address]Dr. Meaganwendie Broderick Sodium [Moles/Vol] 136 mmol/L Normal 136-145 [facility] Comment on above: Performed By: #### C MP, BNP ####[facility] Yvjovgpgji9537[address] [place], [place] [address]Dr. Slick Davie Urea nitrogen [Mass/Vol] 27.0 mg/dL Critically high 7.0-18.0 [facility] Comment on above: Performed By: #### C MP, BNP ####[facility] Qgjgdbbeoy7748[address] [place], [place] [address]Dr. Meaganwendie Davie Urea nitrogen/Creatinine [Mass ratio] 16.5 mg/mg Normal [facility] Comment on above: Performed By: #### C MP, BNP ####[facility] Rvavprhvzd30[address] [place], [place] [address]Dr. Slick Davie CBC AUTO DIFFon 12-13-2021 BASO # 0.0 103/ul Normal 0.0-0.1 [facility] Comment on above: Performed By: #### C BC ####[facility] Jxjvjikocr5070[address] [place], [place] [address]Dr. Slick Broderick Basophils/100 WBC (Bld) 0.5 % Normal 0.2-2.[address] [facility] Comment on above: Performed By: #### C BC ####[facility] Mcnbmnuuji5686[address] [place], [place] [address]Dr. Slick Broderick EO # 0.3 103/ul Normal 0.0-0.7 [facility] Comment on above: Performed By: #### C BC ####[facility] Znbsjhntab5926[address] [place], [place] [address]Dr. Slick Broderick Eosinophils/100 WBC (Bld) 4.4 % Normal 0.9-7.[address] [facility] Comment on above: Performed By: #### C BC ####[facility] Upkqifzsdd4389 [place] [address]Dr. Slick Broderick Erythrocyte distribution width (RBC) [Ratio] 20.5 % Critically high 11.0-15.[address] [facility] Comment on above: Performed By: #### C BC ####[facility] Hmeebcpqwg7629[address] [place], [place] [address]Dr. Slick Broderick Hematocrit (Bld) [Volume fraction] 29.5 % Critically low 36.0-48.[address] [facility] Comment on above: Performed By: #### C BC ####[facility] Ffardcvxzg4369[address] [place], [place] [address]Dr. Slick Broderick Hemoglobin (Bld) [Mass/Vol] 9.3 g/dL Critically low 12.0-16.[address] [facility] Comment on above: Result Comment: post transfusion Performed By: #### C BC ####[facility] Spdcftpdgz3186[address] [place], [place] [address]Dr. Slick Broderick IG # 0.07 10e3/ul Critically high 0.00-0.03 [facility] Comment on above: Performed By: #### C BC ####[facility] Iaxagaxyum6147[address] [place], [place] [address]Dr. Slick Broderick IG % 0.9 % Critically high 0.0-0.5 [facility] Comment on above: Performed By: #### C BC ####[facility] Luqapgtrud0957[address] [place], [place] [address]Dr. Slick Broderick LYMPH # 0.9 103/ul Critically low 1.2-3.8 [facility] Comment on above: Performed By: #### C BC ####[facility] Imgbtbsfou2101[address] [place], [place] [address]Dr. Slick Broderick Lymphocytes/100 WBC (Bld) 11.5 % Critically low 20.5-60.[address] [facility] Comment on above: Performed By: #### C BC ####[facility] Xfigevqugy3036 [place] [address]Dr. Slick Davie MANUAL DIFF REQ NO Normal [facility] Comment on above: Performed By: #### C BC ####[facility] Beefacstjj8593 [place] [address]Dr. Slick Broderick MCH (RBC) [Entitic mass] 30.9 pg Normal 26.7-34.[address] [facility] Comment on above: Performed By: #### C BC ####[facility] Vywrepfhnx3452 [place] [address]Dr. Slick Davie MCHC (RBC) [Mass/Vol] 31.5 g/dL Normal 29.9-35.[address] [facility] Comment on above: Performed By: #### C BC ####[facility] Kfgppabzhc646[address] [place], [place] [address]Dr. Meaganwendie Broderick MCV (RBC) [Entitic vol] 98.0 fL Normal 81.0-99.[address] [facility] Comment on above: Performed By: #### C BC ####[facility] Jxtceoxwdh4330[address] [place], [place] [address]Dr. Slick Davie MONO # 0.6 103/ul Normal 0.3-0.[address] [facility] Comment on above: Performed By: #### C BC ####[facility] Qovqjzvofg267[address] [place], [place] [address]Dr. Meaganwendie Broderick Monocytes/100 WBC (Bld) 8.6 % Normal 1.7-12.[address] [facility] Comment on above: Performed By: #### C BC ####[facility] Nvtczqouwt0966 [place] [address]Dr. Slick Broderick NEUT # 5.5 103/ul Normal 1.4-6.[address] [facility] Comment on above: Performed By: #### C BC ####[facility] Btndagykeh227[address] [place], [place] [address]Dr. Slick Broderick Neutrophils/100 WBC (Bld) 74.1 % Normal 43.0-75.[address] [facility] Comment on above: Performed By: #### C BC ####[facility] Bltgskmhyt3770 [place] [address]Dr. Slick Broderick Platelet mean volume (Bld) [Entitic vol] 9.0 fL Critically low 9.5-13.[address] [facility] Comment on above: Performed By: #### C BC ####[facility] Nqnuxfaikt3294 [place] [address]Dr. Slick Broderick PLT 231 103/ul Normal 150-[address] [facility] Comment on above: Performed By: #### C BC ####[facility] Bliqapmguf4[address] [place], [place] [address]Dr. Slick Broderick RBC 3.01 106/ul Critically low 4.20-5.40 [facility] Comment on above: Performed By: #### C BC ####[facility] Frotogzoqk[address] [place], [place] [address]Dr. Slick Davie WBC 7.5 103/ul Normal 4.0-11.[address] [facility] Comment on above: Performed By: #### C BC ####[facility] Uckmhxhddd032[address] [place], [place] [address]Dr. Slick Davie BASO # 0.0 103/ul Normal 0.0-0.[address] [facility] Comment on above: Performed By: #### C BC ####[facility] [address]gklordpo[address] [place], [place] [address]Dr. Meaganwendie Broderick Basophils/100 WBC (Bld) 0.3 % Normal 0.2-2.[address] [facility] Comment on above: Performed By: #### C BC ####[facility] [address]ccuraqulb[address] [place], [place] [address]Dr. Slick Davie EO # 0.3 103/ul Normal 0.0-0.[address] [facility] Comment on above: Performed By: #### C BC ####[facility] Sgowszmxmx5[address] [place], [place] [address]Dr. Slick Davie Eosinophils/100 WBC (Bld) 3.8 % Normal 0.9-7.[address] [facility] Comment on above: Performed By: #### C BC ####[facility] Lccyyroixi44[address] [place], [place] [address]Dr. Slick Broderick Erythrocyte distribution width (RBC) [Ratio] 17.4 % Critically high 11.0-15.0 [facility] Comment on above: Performed By: #### C BC ####[facility] [address]owtmuviah[address] [place] [address]Dr. Slick Broderick Hematocrit (Bld) [Volume fraction] 22.4 % Critically low 36.0-48.0 [facility] Comment on above: Result Comment: Test Repeated Critical Value Verified Performed By: #### C BC ####[facility] Qoqsieclwu[address] [place], [place] [address]Dr. Slick Broderick Hemoglobin (Bld) [Mass/Vol] 7.1 g/dL Critically low 12.0-16.0 [facility] Comment on above: Performed By: #### C BC ####[facility] [address]ogrhxrmcq[address] [place], [place] [address]Dr. Slick Broderick IG # 0.06 10e3/ul Critically high 0.00-0.03 [facility] Comment on above: Performed By: #### C BC ####[facility] Hmehxgyuhe70[address] [place], [place] [address]Dr. Slick Davie IG % 0.8 % Critically high 0.0-0.5 [facility] Comment on above: Performed By: #### C BC ####[facility] Xpuzzdoedk7[address] [place], [place] [address]Dr. Slick Broderick LYMPH # 0.8 103/ul Critically low 1.2-3.8 [facility] Comment on above: Performed By: #### C BC ####[facility] Iknuhvcmrx36[address] [place], [place] [address]Dr. Slick Broderick Lymphocytes/100 WBC (Bld) 10.7 % Critically low 20.5-60.[address] [facility] Comment on above: Performed By: #### C BC ####[facility] Zxgkictzmw[address] [place] [address]Dr. Slick Broderick MANUAL DIFF REQ NO Normal [facility] Comment on above: Performed By: #### C BC ####[facility] Sizbvkiyre47[address] [place] [address]Dr. Slick Broderick MCH (RBC) [Entitic mass] 32.3 pg Normal 26.7-34.[address] [facility] Comment on above: Performed By: #### C BC ####[facility] Rnjkqggxfa6871 [place] [address]Dr. Slick Broderick MCHC (RBC) [Mass/Vol] 31.7 g/dL Normal 29.9-35.[address] [facility] Comment on above: Performed By: #### C BC ####[facility] Ydubbgjjaz[address] [place], [place] [address]Dr. Slick Broderick MCV (RBC) [Entitic vol] 101.8 fL Critically high 81.0-99.[address] [facility] Comment on above: Performed By: #### C BC ####[facility] Lkkemlefnd67[address] [place], [place] [address]Dr. Slick Davie MONO # 0.8 103/ul Normal 0.3-0.[address] [facility] Comment on above: Performed By: #### C BC ####[facility] Hvnukwkulr[address] [place], [place] [address]Dr. Slick Davie Monocytes/100 WBC (Bld) 10.7 % Normal 1.7-12.[address] [facility] Comment on above: Performed By: #### C BC ####[facility] Dkzdvqhjza[address] [place], [place] [address]Dr. Slick Broderick NEUT # 5.6 103/ul Normal 1.4-6.[address] [facility] Comment on above: Performed By: #### C BC ####[facility] Chddpidufc0756[address] [place], [place] [address]Dr. Slick Davie Neutrophils/100 WBC (Bld) 73.7 % Normal 43.0-75.[address] [facility] Comment on above: Performed By: #### C BC ####[facility] Xkmsxenmpm6[address] [place], [place] [address]Dr. Slick Davie Platelet mean volume (Bld) [Entitic vol] 9.4 fL Critically low 9.5-13.[address] [facility] Comment on above: Performed By: #### C BC ####[facility] Aovukzgefc[address] [place] [id number]. Slick Broderick PLT 209 103/ul Normal 150-450 [facility] Comment on above: Performed By: #### C BC ####[facility] Bbwnaqgryf22[address] [place] [phone]. Slick Broderick RBC 2.20 106/ul Critically low 4.20-5.40 [facility] Comment on above: Performed By: #### C BC ####[facility] Azdglzjipb4019 [place] [address]Dr. Slick Broderick WBC 7.6 103/ul Normal 4.0-11.0 [facility] Comment on above: Performed By: #### C BC ####[facility] Vuafusldha3260 [place] [address]Dr. Slick Broderick PROF 14(COMP METB)on 022 Albumin [Mass/Vol] 2.1 g/dL Critically low 3.4-5.0 [facility] Comment on above: Performed By: #### C MP ####[facility] Bbreunreya6[address] [place] [address]Dr. Slick Broderick Albumin/Globulin [Mass ratio] 0.7 {ratio} Normal [facility] Comment on above: Performed By: #### C MP ####[facility] Fqlbwrkxvm8942 [place] [address]Dr. Slick Broderick ALP [Catalytic activity/Vol] 83 U/L Normal 46-[address] [facility] Comment on above: Performed By: #### C MP ####[facility] Rzswlmuwal4650 [place] [address]Dr. Slick Broderick ALT [Catalytic activity/Vol] 12 U/L Critically low 14-59 [facility] Comment on above: Performed By: #### C MP ####[facility] Dzrmqesddj3673 [place] [address]Dr. Slick Broderick Anion gap [Moles/Vol] 14.0 mmol/L Normal [facility] Comment on above: Performed By: #### C MP ####[facility] Itlkvjyydl2794 [place] [phone]. Slick Broderick AST [Catalytic activity/Vol] 13 U/L Critically low 15-[address] [facility] Comment on above: Performed By: #### C MP ####[facility] Tyagyiqeky6280 [place] [phone]. Slick Broderick Bilirubin [Mass/Vol] 0.3 mg/dL Normal 0.2-1.0 [facility] Comment on above: Performed By: #### C MP ####[facility] Pilukzmdut5552 [place] [address]Dr. Slick Broderick Calcium [Mass/Vol] 7.4 mg/dL Critically low 8.5-10.1 [facility] Comment on above: Performed By: #### C MP ####[facility] Twmexpemif8901 [place] [address]Dr. Slick Broderick Chloride [Moles/Vol] 105 mmol/L Normal 98-[address] [facility] Comment on above: Performed By: #### C MP ####[facility] Vatcyuhgfu6295 [place] [phone]. Slick Broderick CO2 [Moles/Vol] 23.0 mmol/L Normal 21.0-32.0 [facility] Comment on above: Performed By: #### C MP ####[facility] Wlhxopsvct1527 [place] [phone]. Slick Broderick Creatinine [Mass/Vol] 1.80 mg/dL Critically high 0.55-1.02 [facility] Comment on above: Performed By: #### C MP ####[facility] Yazfqpxmun2769 [place] [phone]. Slick Broderick EGFR-AF [place] 33 mL/min/1.73m2 Critically low >=[address] [facility] Comment on above: Performed By: #### C MP ####[facility] Pauxqvtnvq4051 [place] [phone]. Slick Broderick EGFR-NON AF [place] 28 mL/min/1.73m2 Critically low >=[address] [facility] Comment on above: Performed By: #### C MP ####[facility] Pefnjpjzxu3576 [place] [phone]. Slick Broderick Globulin (S) [Mass/Vol] 3.2 g/dL Normal [facility] Comment on above: Performed By: #### C MP ####[facility] Nnzpqjkqtt4055 [place] [address]Dr. Slick Broderick Glucose [Mass/Vol] 85 mg/dL Normal 74-106 [facility] Comment on above: Performed By: #### C MP ####[facility] Acwnlazyeb6542 [place] [address]Dr. Slick Broderick Potassium [Moles/Vol] 5.0 mmol/L Normal 3.5-5.1 [facility] Comment on above: Performed By: #### C MP ####[facility] Tgfcreqsmn74[address] [place], [place] [address]Dr. Slick Broderick Protein [Mass/Vol] 5.3 g/dL Critically low 6.4-8.2 [facility] Comment on above: Performed By: #### C MP ####[facility] Hywkudauex29[address] [place], [place] [address]Dr. Slick Broderick Sodium [Moles/Vol] 137 mmol/L Normal 136-145 [facility] Comment on above: Performed By: #### C MP ####[facility] Skxrxebxtt8517[address] [place], [place] [address]Dr. Slick Broderick Urea nitrogen [Mass/Vol] 30.0 mg/dL Critically high 7.0-18.0 [facility] Comment on above: Performed By: #### C MP ####[facility] Mspotzhusw0850 [place] [address]Dr. Slick Broderick Urea nitrogen/Creatinine [Mass ratio] 16.7 mg/mg Normal [facility] Comment on above: Performed By: #### C MP ####[facility] Jqrtzfbkde3915[address] [place], [place] [address]Dr. Slick Broderick ABO RH RETYPEon 12-12-2021 ABO and Rh group Nom (Bld) DONE Normal [facility] Comment on above: Performed By: #### R ETYPE ####[facility] Lgnyurdubl0613 [place] [address]Dr. Slick Davie BNPon 12-12-2021 Natriuretic peptide B (Bld) [Mass/Vol] 952.0 pg/mL Critically high <=900.[address] [facility] Comment on above: Performed By: #### B GAME MASTER, CRP, CMP ####[facility] Aoiryannmk9116[address] [place], [place] [address]Dr. Slick Broderick CBC AUTO DIFFon 12-12-2021 BASO # 0.0 103/ul Normal 0.0-0.[address] [facility] Comment on above: Performed By: #### C BC ####[facility] Jyxhjjpnqk0613[address] [place], [place] [address]Dr. Slick Broderick Basophils/100 WBC (Bld) 0.2 % Normal 0.2-2.[address] [facility] Comment on above: Performed By: #### C BC ####[facility] Wzgviuypme7594[address] [place], [place] [address]Dr. Slick Broderick EO # 0.2 103/ul Normal 0.0-0.[address] [facility] Comment on above: Performed By: #### C BC ####[facility] Hvgqykdhst36[address] [place], [place] [address]Dr. Slick Broderick Eosinophils/100 WBC (Bld) 2.6 % Normal 0.9-7.[address] [facility] Comment on above: Performed By: #### C BC ####[facility] Hebpmehtjc933[address] [place], [place] [address]Dr. Slick Broderick Erythrocyte distribution width (RBC) [Ratio] 17.2 % Critically high 11.0-15.[address] [facility] Comment on above: Performed By: #### C BC ####[facility] Rgwjqhngsh4[address] [place], [place] [address]Dr. Slick Broderick Hematocrit (Bld) [Volume fraction] 24.0 % Critically low 36.0-48.[address] [facility] Comment on above: Performed By: #### C BC ####[facility] Pvqktomsul5510[address] [place], [place] [address]Dr. Slick Broderick Hemoglobin (Bld) [Mass/Vol] 7.7 g/dL Critically low 12.0-16.[address] [facility] Comment on above: Performed By: #### C BC ####[facility] Vudfhynadx4802 [place] [address]Dr. Slick Broderick IG # 0.05 10e3/ul Critically high 0.00-0.03 [facility] Comment on above: Performed By: #### C BC ####[facility] Brhxbfqawx9904 [place] [address]Dr. Slick Broderick IG % 0.5 % Normal 0.0-0.5 [facility] Comment on above: Performed By: #### C BC ####[facility] Hmhukkmcck08[address] [place], [place] [address]DrEmma Broderick LYMPH # 0.7 103/ul Critically low 1.2-3.8 [facility] Comment on above: Performed By: #### C BC ####[facility] Jtmsjzhpem17[address] [place], [place] [address]Dr. Slick Broderick Lymphocytes/100 WBC (Bld) 7.7 % Critically low 20.5-60.0 [facility] Comment on above: Performed By: #### C BC ####[facility] Pbtesehtlp9[address] [place], [place] [address]DrEmma Broderick MANUAL DIFF REQ NO Normal [facility] Comment on above: Performed By: #### C BC ####[facility] Orqdkehzmu2004 [place] [address]DrEmma Broderick MCH (RBC) [Entitic mass] 32.6 pg Normal 26.7-34.[address] [facility] Comment on above: Performed By: #### C BC ####[facility] Cpxhcjwbul6[address] [place], [place] [address]DrEmma Broderick MCHC (RBC) [Mass/Vol] 32.1 g/dL Normal 29.9-35.[address] [facility] Comment on above: Performed By: #### C BC ####[facility] Ggsuwgllvh4126[address] [place], [place] [address]Dr. Slick Broderick MCV (RBC) [Entitic vol] 101.7 fL Critically high 81.0-99.[address] [facility] Comment on above: Performed By: #### C BC ####[facility] Magnbvmdta5246 [place] [address]Dr. Slick Broderick MONO # 0.8 103/ul Normal 0.3-0.[address] [facility] Comment on above: Performed By: #### C BC ####[facility] Cmfkrrdyuy2515[address] [place], [place] [address]Dr. Slick Davie Monocytes/100 WBC (Bld) 8.5 % Normal 1.7-12.[address] [facility] Comment on above: Performed By: #### C BC ####[facility] Ayqsxwkmtv0128[address] [place], [place] [address]Dr. Slick Broderick NEUT # 7.3 103/ul Critically high 1.4-6.5 [facility] Comment on above: Performed By: #### C BC ####[facility] Quphqwpvqv6575[address] [place], [place] [address]Dr. Slick Davie Neutrophils/100 WBC (Bld) 80.5 % Critically high 43.0-75.[address] [facility] Comment on above: Performed By: #### C BC ####[facility] Kmhxdigmgw1224[address] [place], [place] [address]Dr. Slick Davie Platelet mean volume (Bld) [Entitic vol] 8.9 fL Critically low 9.5-13.[address] [facility] Comment on above: Performed By: #### C BC ####[facility] Rlonchybky[address]59[address] [place], [place] [address]Dr. Slick Davie PLT 204 103/ul Normal 150-[address] [facility] Comment on above: Performed By: #### C BC ####[facility] Aeicdydrts7[address] [place], [place] [address]Dr. Slick Broderick RBC 2.36 106/ul Critically low 4.20-5.40 [facility] Comment on above: Performed By: #### C BC ####[facility] Osjaaqastj10[address] [place], [place] [address]Dr. Slick Broderick WBC 9.1 103/ul Normal 4.0-11.[address] [facility] Comment on above: Performed By: #### C BC ####[facility] Ttjqkmfvpo8238 [place] [address]Dr. Slick Broderick CBC W MANUAL DIFFon 12-13-19 22 ATYPICAL LYMPH # Normal [facility] Comment on above: Performed By: #### C BCMAN ####[facility] Dbzbnyhsfm4080 [place] [address]Dr. Slick Broderick ATYPICAL LYMPH % Normal [facility] Comment on above: Performed By: #### C BCMAN ####[facility] Lhofwwukdl8[address] [place], [place] [address]Dr. Slick Broderick BAND # Normal 0.0-0.[address] [facility] Comment on above: Performed By: #### C BCMAN ####[facility] Srxcircdlb8913[address] [place], [place] [address]Dr. Slick Broderick BAND % Normal 0-[address] [facility] Comment on above: Performed By: #### C BCMAN ####[facility] Yvwrgqmyzb038[address] [place], [place] [address]Dr. Slick Broderick BASOM # 0.00 103/ul Normal 0.00-0.[address] [facility] Comment on above: Performed By: #### C BCMAN ####[facility] Bkrzxxbwnh0358[address] [place], [place] [address]Dr. Slick Broderick BASOM % 0.0 % Critically low 0.2-2.0 [facility] Comment on above: Performed By: #### C BCMAN ####[facility] Otjwnogoau6[address] [place] [address]Dr. Slick Broderick BLAST # Normal [facility] Comment on above: Performed By: #### C BCMAN ####[facility] Vuegzzznra5[address] [place], [place] [address]Dr. Slick Broderick BLAST % Normal [facility] Comment on above: Performed By: #### C BCMAN ####[facility] Oqbsywyaaj[address] [place], [place] [address]Dr. Slick Davie CORRECTED WBC Normal 4.0-11.0 [facility] Comment on above: Performed By: #### C BCNAZARIO ####[facility] Ukczysilcz5355 [place] [id number]. Slick Broderick EOS # 0.35 103/ul Normal 0.00-0.70 [facility] Comment on above: Performed By: #### C BCNAZARIO ####[facility] Ypacpdugnz4024 [place] [phone]. Slick Broderick EOS% 3.0 % Normal 0.9-7.0 [facility] Comment on above: Performed By: #### C AIDEN ####[facility] Xxaiudbsdb3316 [place] [phone]. Slick Broderick HCT 21.4 % Critically low 36.0-48.0 [facility] Comment on above: Result Comment: TEST REPEATED CRITICAL VALUE VERIFIED Performed By: #### C AIDEN ####[facility] Ksvyipsolc9732 [place] [phone]. Slick Broderick HGB 6.6 g/dl Critically low 12.0-16.0 [facility] Comment on above: Result Comment: TEST REPEATED CRITICAL VALUE VERIFIED Performed By: #### C AIDEN ####[facility] Fzbnlksljh[address] [place], [place] [address]Dr. Slick Broderick LYMPHM # 0.59 103/ul Critically low 1.20-3.80 [facility] Comment on above: Performed By: #### C AIDEN ####[facility] Tvevkwqtng9245 [place] [id number]. Slick Broderick LYMPHM% 5.0 % Critically low 20.5-60.0 [facility] Comment on above: Performed By: #### C AIDEN ####[facility] Peckeytaue9349 [place] [phone]. Slick Broderick MCH 33.2 pg Normal 26.7-34.[address] [facility] Comment on above: Performed By: #### C AIDEN ####[facility] Wvcwzyokrm1782 [place] [phone]. Slick Broderick MCHC 30.8 g/dl Normal 29.9-35.2 [facility] Comment on above: Performed By: #### C BCNAZARIO ####[facility] Vepfjpzkbp7288 [place] [phone]. Slick Broderick MCV 107.5 fL Critically high 81.0-99.0 [facility] Comment on above: Result Comment: RBCS APPEAR MACROCYTIC ON PERIPHERAL SMEAR Performed By: #### C BCNAZARIO ####[facility] Cquextxkot8878 [place] [phone]. Slick Broderick METAMYELOCYTE # Normal [facility] Comment on above: Performed By: #### C AIDEN ####[facility] Emfldtaiqt6345 [place] [phone]. Slick Broderick METAMYELOCYTE % Normal [facility] Comment on above: Performed By: #### C AIDEN ####[facility] Uawtdckgak0424 [place] [phone]. Slick Broderick MONOM# 0.71 103/ul Normal 0.30-0.80 [facility] Comment on above: Performed By: #### C AIDEN ####[facility] Fboswthooy8403 [place] [phone]. Slick Broderick MONOM% 6.0 % Normal 1.7-12.0 [facility] Comment on above: Performed By: #### C AIDEN ####[facility] Iduadkavdh0780 [place] [phone]. Slick Broderick MPV 9.2 fL Critically low 9.5-13.5 [facility] Comment on above: Performed By: #### C AIDEN ####[facility] Zklhhxmaxv9708 [place] [phone]. Slick Broderick MYELOCYTE # Normal [facility] Comment on above: Performed By: #### C AIDEN ####[facility] Pjkfarwkgr4198 [place] [phone]. Slick Broderick MYELOCYTE % Normal [facility] Comment on above: Performed By: #### C AIDEN ####[facility] Arvsdkuxnt2959 [place] [phone]. Slick Broderick NRBC Normal [facility] Comment on above: Performed By: #### C BCNAZARIO ####[facility] Dulhkjbyms1688 [place], [place] [address]Nw. Slick Broderick PLT 232 103/ul Normal 150-450 [facility] Comment on above: Performed By: #### C BCNAZARIO ####[facility] Lyvkgfrcsc7198 [place], [place] [address]Ep. Slick Broderick RBC 1.99 106/ul Critically low 4.20-5.40 [facility] Comment on above: Performed By: #### C AIDEN ####[facility] Tmgtdlloya6373 [place], [place] [address]Gk. Slick Broderick RDW 15.6 % Critically high 11.0-15.0 [facility] Comment on above: Performed By: #### C AIDEN ####[facility] Tpscwljtkw4657 [place], [place] [address]Fr. Slick Broderick SEG # 10.15 103/ul Critically high 1.40-6.50 [facility] Comment on above: Performed By: #### C AIDEN ####[facility] Fhrfhddjzc6206 [place], [place] [address]Rh. Slick Broderick SEG % 86.0 % Critically high 43.0-75.0 [facility] Comment on above: Performed By: #### C BCNAZARIO ####[facility] Zvwffbjwqo1922 [place], [place] [address]Ee. Slick Broderick WBC 11.8 103/ul Critically high 4.0-11.0 [facility] Comment on above: Performed By: #### C BCNAZARIO ####[facility] Csibwkqtbq5038 [place], [place] [address]Ii. Slick Broderick CRPon 12-12-2021 CRP 10.1 mg/dL Critically high <=1.0 [facility] Comment on above: Performed By: #### B GAME MASTER, CRP, CMP ####[facility] Tlkmqjzuoe5556 [place], [place] [address]Zx. Slick Broderick CULTURE BLOODon 12-12-2021 Microscopic examination of blood, culture Culture Observations: NO GROWTH AT [address] [facility] Comment on above: Performed By: #### B LDCX2 ####[facility] Mjkeftacxy8601 [place] [address]Dr. Slick Broderick Microscopic examination of blood, culture Culture Observations: NO GROWTH AT [address] [facility] Comment on above: Performed By: #### B LDCX1 ####[facility] Ksoalqenax6422 [place] [phone]. Slick Broderick CULTURE URINEon 12-12-2021 CULTURE URINE Culture Observations : NO GROWTH. Normal [facility] Comment on above: Performed By: #### U RCX ####[facility] Btzdouxqqy2804 [place] [address]Dr. Slick Broderick Covid-19 PCR (CVDTB)on SARS-CoV-2 (COVID-19) RNA DONNIE+probe Ql (Unsp spec) Not detected Normal NOT DETECTED [facility] Comment on above: Result Comment: When [...] for this test is supported by the [place] [employer]'s declaration that [...] be used). Performed By: #### C VDTBH ####[facility] Byaqtivwyr4455 [place] [phone]. Slick Broderick ER URINE PROFILEon 2 Bilirubin Ql (U) Negative Normal NEGATIVE [facility] Comment on above: Performed By: #### U MICRO, ERUR ####[facility] Yifqfwxrfo7841 [place] [address]Dr. Slick Broderick Clarity (U) CLOUDY Abnormal CLEAR [facility] Comment on above: Performed By: #### U MICRO, ERUR ####[facility] Ombcbciuai5373 [place] [address]Dr. Slick Broderick Color (U) LT. YELLOW Normal YELLOW [facility] Comment on above: Performed By: #### U MICRO, ERUR ####[facility] Erwqcqjgev[address] [place], [place] [address]Dr. Slick Broderick ERUAHD A micrscopic examination will be performed if indicated. Normal [facility] Comment on above: Performed By: #### U MICRO, ERUR ####[facility] Lsejnyrzqh[address] [place], [place] [address]Dr. Slick Broderick Glucose Ql (U) Negative Normal NEGATIVE [facility] Comment on above: Performed By: #### U MICRO, ERUR ####[facility] Nklsigfvbh94[address] [place], [place] [address]Dr. Slick Broderick Hemoglobin Ql (U) Negative Normal NEGATIVE [facility] Comment on above: Performed By: #### U MICRO, ERUR ####[facility] Gxtuwfqnwr7626[address] [place], [place] [address]Dr. Slick Broderick Ketones Ql (U) Negative Normal NEGATIVE [facility] Comment on above: Performed By: #### U MICRO, ERUR ####[facility] Kouytwbcoz[address] [place], [place] [address]Dr. Slick Broderick LEUKOCYTES MODERATE Abnormal NEGATIVE [facility] Comment on above: Performed By: #### U MICRO, ERUR ####[facility] Upodszinqv28[address] [place], [place] [address]Dr. Slick Broderick Nitrite Ql (U) Negative Normal NEGATIVE [facility] Comment on above: Performed By: #### U MICRO, ERUR ####[facility] [address] [place], [place] [address]Dr. Slick Broderick pH (U) 6.0 [pH] Normal 5-9 [facility] Comment on above: Performed By: #### U MICRO, ERUR ####[facility] [address] [place] [address]Dr. Slick Broderick SPEC GRAVITY 1.010 Normal 1.005-<=1.025 [facility] Comment on above: Performed By: #### U MICRO, ERUR ####[facility] [address] [place] [address]Dr. Slick Broderick UA PROTEIN Negative Normal NEGATIVE/ TRACE [facility] Comment on above: Performed By: #### U MICRO, ERUR ####[facility] [address]lsqel[address] [place] [address]Dr. Slick Broderick UR MICRO IND INDICATED Normal [facility] Comment on above: Performed By: #### U MICRO, ERUR ####[facility] [address]ffct[address] [place] [address]Dr. Slick Broderick Urobilinogen Qn (U) 0.2 {Hiren'U}/dL Normal 0.2 - 1. 0 [facility] Comment on above: Performed By: #### U MICRO, ERUR ####[facility] Af[address]qwxjfn[address] [place] [address]Dr. Slick Broderick IRON AND TIBCon 12-12-2021 % SATURATION 7.0 % Normal [facility] Comment on above: Performed By: #### B 12FOL, FETIBC ####[facility] [address]ynr[address] [place] [address]Dr. Slick Broderick Iron [Mass/Vol] 18.0 ug/dL Critically low 50.0-170.0 [facility] Comment on above: Performed By: #### B 12FOL, FETIBC ####[facility] [address]wom[address]uvse[address] [place] [address]Dr. Slick Broderick TIBC DIRECT 257.0 ug/dL Normal 250.0-450.0 [facility] Comment on above: Performed By: #### B 12FOL, FETIBC ####[facility] [address]wt[address]cmhjm[address] [place] [address]Dr. Slick Broderick LACTATE/LACTIC ACIDon 2021 Lactate [Moles/Vol] 0.7 mmol/L Normal 0.4-1.9 [facility] Comment on above: Performed By: #### L ACT ####[facility] [address]pe[address] [place] [address]Dr. Slick Broderick OCC BLD IMMUNO SCREENon OCCULT BLOOD Negative Normal NEGATIVE [facility] Comment on above: Performed By: #### O BSCRN ####[facility] V[address]yeerqjm[address] [place] [address]Dr. Slick Broderick PROF 14(COMP METB)on 022 Albumin [Mass/Vol] 2.6 g/dL Critically low 3.4-5.0 [facility] Comment on above: Performed By: #### B GAME MASTER, CRP, CMP ####[facility] [address] [place], [place] [address]Dr. Slick Broderick Albumin/Globulin [Mass ratio] 0.7 {ratio} Normal [facility] Comment on above: Performed By: #### B GAME MASTER, CRP, CMP ####[facility] [address]pvdomr[address] [place] [address]Dr. Slick Broderick ALP [Catalytic activity/Vol] 105 U/L Normal 46-116 [facility] Comment on above: Performed By: #### B GAME MASTER, CRP, CMP ####[facility] [address]qfcbpx[address] [place] [address]Dr. Slick Broderick ALT [Catalytic activity/Vol] 16 U/L Normal 14-59 [facility] Comment on above: Performed By: #### B GAME MASTER, CRP, CMP ####[facility] Xrbomfqupk[address] [place] [address]Dr. Slick Broderick Anion gap [Moles/Vol] 11.7 mmol/L Normal [facility] Comment on above: Performed By: #### B GAME MASTER, CRP, CMP ####[facility] [address]uvfkbopqy[address] [place] [address]Dr. Slick Broderick AST [Catalytic activity/Vol] 11 U/L Critically low 15-37 [facility] Comment on above: Performed By: #### B GAME MASTER, CRP, CMP ####[facility] [address]igond[address] [place] [address]Dr. Slick Broderick Bilirubin [Mass/Vol] 0.3 mg/dL Normal 0.2-1.0 [facility] Comment on above: Performed By: #### B GAME MASTER, CRP, CMP ####[facility] [address]lwdcohuw[address] [place] [address]Dr. Slick Broderick Calcium [Mass/Vol] 7.8 mg/dL Critically low 8.5-10.1 [facility] Comment on above: Performed By: #### B GAME MASTER, CRP, CMP ####[facility] [address] [place], [place] [address]Dr. Slick Broderick Chloride [Moles/Vol] 105 mmol/L Normal 98-107 [facility] Comment on above: Performed By: #### B GAME MASTER, CRP, CMP ####[facility] [address]fdjwsnnge[address] [place], [place] [address]Dr. Slick Broderick CO2 [Moles/Vol] 24.2 mmol/L Normal 21.0-32.0 [facility] Comment on above: Performed By: #### B GAME MASTER, CRP, CMP ####[facility] P[address]ft[address]cm[address] [place], [place] [address]Dr. Slick Davie Creatinine [Mass/Vol] 1.96 mg/dL Critically high 0.55-1.02 [facility] Comment on above: Performed By: #### B GAME MASTER, CRP, CMP ####[facility] [address]xfafa[address] [place], [place] [address]Dr. Slick Davie EGFR-AF [place]ER 30 mL/min/1.73m2 Critically low >=[address] [facility] Comment on above: Performed By: #### B GAME MASTER, CRP, CMP ####[facility] [address]laweyhxur[address] [place], [place] [address]Dr. Slick Broderick EGFR-NON AF [place] 25 mL/min/1.73m2 Critically low >=60 [facility] Comment on above: Performed By: #### B GAME MASTER, CRP, CMP ####[facility] Qmxirenzyf[address] [place], [place] [address]Dr. Slick Broderick Globulin (S) [Mass/Vol] 3.8 g/dL Normal [facility] Comment on above: Performed By: #### B GAME MASTER, CRP, CMP ####[facility] [address]qvdkixr[address] [place] [address]Dr. Slick Broderick Glucose [Mass/Vol] 91 mg/dL Normal 74-106 [facility] [place] Comment on above: Performed By: #### B GAME MASTER, CRP, CMP ####[facility] Wqpwksfirn[address] [place] [address]Dr. Slick Broderick Potassium [Moles/Vol] 4.9 mmol/L Normal 3.5-5.[address] [facility] Comment on above: Performed By: #### B GAME MASTER, CRP, CMP ####[facility] [address]ubrhgterm[address] [place], [place] [address]Dr. Slick Broderick Protein [Mass/Vol] 6.4 g/dL Normal 6.4-8.2 [facility] Comment on above: Performed By: #### B GAME MASTER, CRP, CMP ####[facility] [address]pf[address]zidv[address] [place] [address]Dr. Slick Broderick Sodium [Moles/Vol] 136 mmol/L Normal 136-145 [facility] Comment on above: Performed By: #### B GAME MASTER, CRP, CMP ####[facility] [address]vpdpxpi[address] [place], [place] [address]Dr. Slick Broderick Urea nitrogen [Mass/Vol] 32.0 mg/dL Critically high 7.0-18.[address] [facility] Comment on above: Performed By: #### B GAME MASTER, CRP, CMP ####[facility] Wmjyrzwqph[address] [place] [address]Dr. Slick Broderick Urea nitrogen/Creatinine [Mass ratio] 16.3 mg/mg Normal [facility] Comment on above: Performed By: #### B GAME MASTER, CRP, CMP ####[facility] Ixmbpalcoh[address] [place], [place] [address]Dr. Slick Broderick TYPE AND SCREENon 12-12-2021 TYPE AND SCREEN Negative Normal [facility] Comment on above: Performed By: #### T NS ####[facility] [address]ttzrefwen[address] [place], [place] [address]Dr. Slick Broderick URINE MICROSCOPIC ONLYon BACTERIA SMALL Abnormal NONE SEEN [facility] Comment on above: Performed By: #### U MICRO, ERUR ####[facility] Advtayzkgu[address] [place] [address]Dr. Slick Broderick Bacteria identified Cx Nom (U) INDICATED Normal [facility] Comment on above: Performed By: #### U MICRO, ERUR ####[facility] [address]xd[address]heed[address] [place], [place] [address]Dr. Slick Broderick CAST NONE SEEN Normal NONE SEEN [facility] Comment on above: Performed By: #### U MICRO, ERUR ####[facility] [address]xvhwjv[address] [place], [place] [address]Dr. Slick Broderick Crystals LM Nom (Urine sed) NONE SEEN Normal NONE SEEN [facility] Comment on above: Performed By: #### U MICRO, ERUR ####[facility] [address]msyp[address]chsr[address] [place], [place] [address]Dr. Slick Broderick Epithelial cells LM Ql (Urine sed) MANY Abnormal NONE SEEN /RARE [facility] Comment on above: Performed By: #### U MICRO, ERUR ####[facility] Afdf[address]ztzw[address] [place], [place] [address]Dr. Slick Broderick MUCOUS TRACE Abnormal NONE SEEN [facility] Comment on above: Performed By: #### U MICRO, ERUR ####[facility] [address]twbrvac[address] [place], [place] [address]Dr. Slick Broderick RBC 0-2 Normal 0-[address] [facility] Comment on above: Performed By: #### U MICRO, ERUR ####[facility] [address]veywqh[address] [place], [place] [address]Dr. Slick Broderick WBC 2-5 Abnormal NONE SEEN [facility] Comment on above: Performed By: #### U MICRO, ERUR ####[facility] Ra[address]rf[address] [place], [place] [address]Dr. Slick Broderick VIT B12 AND FOLATEon 022 Cobalamin (Vitamin B12) [Mass/Vol] 753.0 pg/mL Normal 193.0-986.0 [facility] Comment on above: Performed By: #### B 12AYSE FETCHRISTINEC ####[facility] [address]xyqv[address] [place] [address]Dr. Slick Broderick FOLATE 20.20 ng/mL Normal 8.60-58.90 [facility] Comment on above: Performed By: #### B 12AYSE FETCHRISTINEC ####[facility] [address]reiaq[address] [place] [address]Dr. Slick Broderick XR CHEST 1 Von 12-12-2021 XR CHEST [address] [facility] XR KNEE LT 3Von 12-12-2021 XR KNEE LT 3V Normal [facility] PROF CHEM 8 (BAS METB)on Anion gap [Moles/Vol] 11.4 mmol/L Normal [facility] Comment on above: Performed By: #### B MP ####[facility] [address]sefkradba[address] [place] [address]Dr. Slick Broderick Calcium [Mass/Vol] 7.4 mg/dL Critically low 8.5-10.1 [facility] Comment on above: Performed By: #### B MP ####[facility] Vcmlivsqgl7[address] [place] [address]Dr. Slick Broderick Chloride [Moles/Vol] 109 mmol/L Critically high 98-107 [facility] Comment on above: Performed By: #### B MP ####[facility] Bjvyfsifnn60[address] [place] [address]Dr. Slick Broderick CO2 [Moles/Vol] 26.6 mmol/L Normal 21.0-32.0 [facility] Comment on above: Performed By: #### B MP ####[facility] Vzzkjcrndk7[address] [place] [address]DrEmma Broderick Creatinine [Mass/Vol] 1.16 mg/dL Critically high 0.55-1.02 [facility] Comment on above: Performed By: #### B MP ####[facility] Runmnfmwkb[address] [place] [address]Dr. Slick Broderick EGFR-AF [place] 56 mL/min/1.73m2 Critically low >=60 [facility] Comment on above: Performed By: #### B MP ####[facility] Bghndgrocx18[address] [place] [address]Dr. Meaganwendie Davie EGFR-NON AF [place] 46 mL/min/1.73m2 Critically low >=60 [facility] Comment on above: Performed By: #### B MP ####[facility] Coavhbwogd[address] [place], [place] [address]Dr. Slick Broderick Glucose [Mass/Vol] 128 mg/dL Critically high 74-106 [facility] Comment on above: Performed By: #### B MP ####[facility] E[address]qshqpuw[address] [place], [place] [address]Dr. Slick Broderick Potassium [Moles/Vol] 5.0 mmol/L Normal 3.5-5.1 [facility] Comment on above: Performed By: #### B MP ####[facility] Olnhjelzed[address] [place], [place] [address]Dr. Slick Broderick Sodium [Moles/Vol] 142 mmol/L Normal 136-145 [facility] Comment on above: Performed By: #### B MP ####[facility] Gqdxrjnigm[address] [place], [place] [address]Dr. Slick Broderick Urea nitrogen [Mass/Vol] 22.0 mg/dL Critically high 7.0-18.0 [facility] Comment on above: Performed By: #### B MP ####[facility] Xquepitznm[address] [place], [place] [address]Dr. Slick Broderick Urea nitrogen/Creatinine [Mass ratio] 19.0 mg/mg Normal [facility] Comment on above: Performed By: #### B MP ####[facility] Ksgomamzgl[address] [place], [place] [address]Dr. Slick Broderick XR TIB_FIB LT 2Von 2 XR TIB_FIB LT 2V Normal [facility] CT CSPINE WO CONon 2 CT CSPINE WO CON Normal [facility] CT HEAD WO CONon 11-29-2021 CT HEAD WO CON Normal [facility] Basic Metabolic Panelon 05-3 Calcium [Mass/Vol] 8.7 mg/dL Normal 8.2-10.2 [facility] Comment on above: Performed By: #### B MP #### [facility] [address] Chloride [Moles/Vol] 100 mmol/L Normal 95-114 [facility] Comment on above: Performed By: #### B MP #### [facility] [address] CO2 [Moles/Vol] 24.9 mmol/L Normal 22.0-30.0 [facility] Comment on above: Performed By: #### B MP #### [address] Creatinine [Mass/Vol] 0.88 mg/dL Normal 0.44-1.03 [facility] Comment on above: Performed By: #### B MP #### [place] [address] [place] Creatinine Clr Calc Pharmacy 73.09 [facility] Comment on above: Result Comment: PERF ORMED BY: [place] [address] PATHOLOGIST INTERVENTIONAL NEURORADIOLOGIST GERA CASTELLANOS M.D. Performed By: #### B MP #### [address] Estimated GFR ( Neela > 60 [facility] Comment on above: Result Comment: GFR estimated reference range: According to KDOQI guidelines, <60 ml/min/1.73m2 is sufficient to diagnose a patient with chronic kidney disease. Performed By: #### B MP #### [place] [address] [place] Estimated GFR (Non- Am > 60 [facility] Comment on above: Performed By: #### B MP #### [place] [address] [place] Glucose [Mass/Vol] 98 mg/dL Normal 70-100 [facility] Comment on above: Result Comment: [place] Glucose Reference Range is dependent on time and content of last meal. Glucose of more than 200 mg/dL in a nonstressed, ambulatory subject supports the diagnosis of Diabetes Mellitus. ADA recommended reference range Performed By: #### B MP #### [facility] [address] Potassium [Moles/Vol] 4.3 mmol/L Normal 3.5-5.1 [facility] Comment on above: Performed By: #### B MP #### [address] Sodium [Moles/Vol] 133 mmol/L Low 136-146 [facility] Comment on above: Performed By: #### B MP #### [address] Urea nitrogen [Mass/Vol] 13 mg/dL Normal 9-23 [facility] Comment on above: Performed By: #### B MP #### [address] Basic Metabolic Panelon 05-3 0-202 Calcium [Mass/Vol] 8.6 mg/dL Normal 8.2-10.2 [facility] Comment on above: Performed By: #### C UU, ADDONUAPLUS, UCREA, YUN, UROSMO #### [address] Chloride [Moles/Vol] 104 mmol/L Normal 95-114 [facility] Comment on above: Performed By: #### C UU, ADDONUAPLUS, UCREA, YUN, UROSMO #### [place] [address] [place] CO2 [Moles/Vol] 24.5 mmol/L Normal 22.0-30.0 [facility] Comment on above: Performed By: #### C UU, ADDONUAPLUS, UCREA, YUN, UROSMO #### [address] Creatinine [Mass/Vol] 0.86 mg/dL Normal 0.44-1.03 [facility] Comment on above: Performed By: #### C UU, ADDONUAPLUS, UCREA, YUN, UROSMO #### [facility] [address] Creatinine Clr Calc Pharmacy 75.34 [facility] Comment on above: Result Comment: PERF ORMED BY: [place] [address] PATHOLOGIST INTERVENTIONAL NEURORADIOLOGIST GERA CASTELLANOS M.D. Performed By: #### C UU, ADDONUAPLUS, UCREA, YUN, UROSMO #### [facility] [address] Estimated GFR ( Neela > 60 [facility] Comment on above: Result Comment: GFR estimated reference range: According to KDOQI guidelines, <60 ml/min/1.73m2 is sufficient to diagnose a patient with chronic kidney disease. Performed By: #### C UU, ADDONUAPLUS, UCREA, YUN, UROSMO #### [facility] [address] [place] [address] Estimated GFR (Non- Am > 60 [facility] Comment on above: Performed By: #### C UU, ADDONUAPLUS, UCREA, YUN, UROSMO #### [address] Glucose [Mass/Vol] 89 mg/dL Normal 70-100 [facility] Comment on above: Result Comment: [place] Glucose Reference Range is dependent on time and content of last meal. Glucose of more than 200 mg/dL in a nonstressed, ambulatory subject supports the diagnosis of Diabetes Mellitus. ADA recommended reference range Performed By: #### C UU, ADDONUAPLUS, UCREA, YUN, UROSMO #### [facility] [address] [place] [address] Potassium [Moles/Vol] 4.3 mmol/L Normal 3.5-5.1 [facility] Comment on above: Performed By: #### C UU, ADDONUAPLUS, UCREA, YUN, UROSMO #### [address] Sodium [Moles/Vol] 136 mmol/L Normal 136-146 [facility] Comment on above: Performed By: #### C UU, ADDONUAPLUS, UCREA, YUN, UROSMO #### [address] Urea nitrogen [Mass/Vol] 15 mg/dL Normal 9-23 [facility] Comment on above: Performed By: #### C UU, ADDONUAPLUS, UCREA, YUN, UROSMO #### [address] Complete Blood Count Auto Di ffon 11-08-2021 Basophils (Bld) [#/Vol] 0.0 10*3/uL Normal 0.0-0.2 [facility] Comment on above: Result Comment: PERF ORMED BY: [place] [address] PATHOLOGIST INTERVENTIONAL NEURORADIOLOGIST GERA CASTELLANOS M.D. Performed By: #### C UU, ADDONUAPLUS, UCREA, YUN, UROSMO #### [address] Basophils/100 WBC (Bld) 0.6 % Normal . [facility] Comment on above: Performed By: #### C UU, ADDONUAPLUS, UCREA, YUN, UROSMO #### [address] Eosinophils (Bld) [#/Vol] 0.2 10*3/uL Normal 0.0-0.45 [facility] Comment on above: Performed By: #### C UU, ADDONUAPLUS, UCREA, YUN, UROSMO #### [address] Eosinophils/100 WBC (Bld) 2.1 % Normal . [facility] Comment on above: Performed By: #### C UU, ADDONUAPLUS, UCREA, YUN, UROSMO #### [facility] [address] Erythrocyte distribution width (RBC) [Ratio] 15.3 % Normal 11.9-15.3 [facility] Comment on above: Performed By: #### C UU, ADDONUAPLUS, UCREA, YUN, UROSMO #### [facility] [address] Hematocrit (Bld) [Volume fraction] 24.0 % Low 34.0-46.4 [facility] Comment on above: Performed By: #### C UU, ADDONUAPLUS, UCREA, YUN, UROSMO #### [facility] [address] Hemoglobin (Bld) [Mass/Vol] 8.1 g/dL Low 11.8-15.4 [facility] Comment on above: Performed By: #### C UU, ADDONUAPLUS, UCREA, YUN, UROSMO #### [address] Lymphocytes (Bld) [#/Vol] 0.8 10*3/uL Low 1.00-4.8 [facility] Comment on above: Performed By: #### C UU, ADDONUAPLUS, UCREA, YUN, UROSMO #### [address] Lymphocytes/100 WBC (Bld) 9.8 % Normal . [facility] Comment on above: Performed By: #### C UU, ADDONUAPLUS, UCREA, YUN, UROSMO #### [address] MCH (RBC) [Entitic mass] 33.8 pg Normal 24.7-34.3 [facility] Comment on above: Performed By: #### C UU, ADDONUAPLUS, UCREA, YUN, UROSMO #### [address] MCV (RBC) [Entitic vol] 99.6 fL Normal 80-100 [facility] Comment on above: Performed By: #### C UU, ADDONUAPLUS, UCREA, YUN, UROSMO #### [facility] [address] Mean Corpuscular HGB Conc 33.9 g/dL Normal 32.0-35.0 [facility] Comment on above: Performed By: #### C UU, ADDONUAPLUS, UCREA, YUN, UROSMO #### [facility] [address] Monocytes (Bld) [#/Vol] 0.8 10*3/uL Normal 0.0-0.8 [facility] Comment on above: Performed By: #### C UU, ADDONUAPLUS, UCREA, YUN, UROSMO #### [address] Monocytes/100 WBC (Bld) 10.7 % Normal . [facility] Comment on above: Performed By: #### C UU, ADDONUAPLUS, UCREA, YUN, UROSMO #### [place] [address] [place] Neutrophils (Bld) [#/Vol] 6.1 10*3/uL Normal 1.8-7.7 [facility] Comment on above: Performed By: #### C UU, ADDONUAPLUS, UCREA, YUN, UROSMO #### [place] [address] [place] Neutrophils/100 WBC (Bld) 76.8 % Normal . [facility] Comment on above: Performed By: #### C UU, ADDONUAPLUS, UCREA, YUN, UROSMO #### [facility] [address] [place] [address] [place] Nucleated RBC/100 WBC (Bld) [Ratio] 0.1 % Normal 0-0.5 [facility] Comment on above: Performed By: #### C UU, ADDONUAPLUS, UCREA, YUN, UROSMO #### [place] [id number] [place] Platelet mean volume (Bld) [Entitic vol] 7.1 fL Normal 6.3-10.7 [facility] Comment on above: Performed By: #### C UU, ADDONUAPLUS, UCREA, YUN, UROSMO #### [facility] [address] Platelets (Bld) [#/Vol] 213 10*3/uL Normal 150-450 [facility] Comment on above: Performed By: #### C UU, ADDONUAPLUS, UCREA, YUN, UROSMO #### [facility] [address] RBC (Bld) [#/Vol] 2.41 10*6/uL Low 3.60-5.00 [facility] Comment on above: Performed By: #### C UU, ADDONUAPLUS, UCREA, YUN, UROSMO #### [facility] [address] WBC (Bld) [#/Vol] 7.9 10*3/uL Normal 4.5-11.0 [facility] Comment on above: Performed By: #### C UU, ADDONUAPLUS, UCREA, YUN, UROSMO #### [facility] [address] Basic Metabolic Panelon 05-2 Calcium [Mass/Vol] 8.5 mg/dL Normal 8.2-10.2 [facility] Comment on above: Performed By: #### C UU, ADDONUAPLUS, UCREA, YUN, UROSMO #### [facility] [address] Chloride [Moles/Vol] 103 mmol/L Normal 95-114 [facility] Comment on above: Performed By: #### C UU, ADDONUAPLUS, UCREA, YUN, UROSMO #### [facility] [address] CO2 [Moles/Vol] 23.6 mmol/L Normal 22.0-30.0 [facility] Comment on above: Performed By: #### C UU, ADDONUAPLUS, UCREA, YUN, UROSMO #### [facility] [address] Creatinine [Mass/Vol] 0.88 mg/dL Normal 0.44-1.03 [facility] Comment on above: Performed By: #### C UU, ADDONUAPLUS, UCREA, YUN, UROSMO #### [facility] [address] Creatinine Clr Calc Pharmacy 73.42 [facility] Comment on above: Result Comment: PERF ORMED BY: [place] [address] PATHOLOGIST INTERVENTIONAL NEURORADIOLOGIST GERA CASTELLANOS M.D. Performed By: #### C UU, ADDONUAPLUS, UCREA, YUN, UROSMO #### [address] Estimated GFR ( Neela > 60 [facility] Comment on above: Result Comment: GFR estimated reference range: According to KDOQI guidelines, <60 ml/min/1.73m2 is sufficient to diagnose a patient with chronic kidney disease. Performed By: #### C UU, ADDONUAPLUS, UCREA, YUN, UROSMO #### [address] Estimated GFR (Non- Am > 60 [facility] Comment on above: Performed By: #### C UU, ADDONUAPLUS, UCREA, YUN, UROSMO #### [address] Glucose [Mass/Vol] 98 mg/dL Normal 70-100 [facility] Comment on above: Result Comment: [place] om Glucose Reference Range is dependent on time and content of last meal. Glucose of more than 200 mg/dL in a nonstressed, ambulatory subject supports the diagnosis of Diabetes Mellitus. ADA recommended reference range Performed By: #### C UU, ADDONUAPLUS, UCREA, YUN, UROSMO #### [facility] [address] Potassium [Moles/Vol] 4.2 mmol/L Normal 3.5-5.1 [facility] [facility] Comment on above: Performed By: #### C UU, ADDONUAPLUS, UCREA, YUN, UROSMO #### [facility] [address] Sodium [Moles/Vol] 134 mmol/L Low 136-146 [facility] Comment on above: Performed By: #### C UU, ADDONUAPLUS, UCREA, YUN, UROSMO #### [address] Urea nitrogen [Mass/Vol] 18 mg/dL Normal 9-23 [facility] Comment on above: Performed By: #### C UU, ADDONUAPLUS, UCREA, YUN, UROSMO #### [address] Complete Blood Count Auto Di ffon 11-07-2021 Basophils (Bld) [#/Vol] 0.1 10*3/uL Normal 0.0-0.2 [facility] Comment on above: Performed By: #### C UU, ADDONUAPLUS, UCREA, YUN, UROSMO #### [address] Basophils/100 WBC (Bld) 0.6 % Normal . [facility] Comment on above: Performed By: #### C UU, ADDONUAPLUS, UCREA, YUN, UROSMO #### [address] Eosinophils (Bld) [#/Vol] 0.2 10*3/uL Normal 0.0-0.45 [facility] Comment on above: Performed By: #### C UU, ADDONUAPLUS, UCREA, YUN, UROSMO #### [place] [address] [place] Eosinophils/100 WBC (Bld) 1.9 % Normal . [facility] Comment on above: Performed By: #### C UU, ADDONUAPLUS, UCREA, YUN, UROSMO #### [address] Erythrocyte distribution width (RBC) [Ratio] 15.6 % High 11.9-15.3 [facility] Comment on above: Performed By: #### C UU, ADDONUAPLUS, UCREA, YUN, UROSMO #### [address] Hematocrit (Bld) [Volume fraction] 21.8 % Low 34.0-46.4 [facility] Comment on above: Performed By: #### C UU, ADDONUAPLUS, UCREA, YUN, UROSMO #### [address] Hemoglobin (Bld) [Mass/Vol] 7.4 g/dL Low 11.8-15.4 [facility] Comment on above: Performed By: #### C UU, ADDONUAPLUS, UCREA, YUN, UROSMO #### [address] Lymphocytes (Bld) [#/Vol] 0.8 10*3/uL Low 1.00-4.8 [facility] Comment on above: Performed By: #### C UU, ADDONUAPLUS, UCREA, YUN, UROSMO #### [address] Lymphocytes/100 WBC (Bld) 9.2 % Normal . [facility] Comment on above: Performed By: #### C UU, ADDONUAPLUS, UCREA, YUN, UROSMO #### [address] MCH (RBC) [Entitic mass] 33.8 pg Normal 24.7-34.3 [facility] Comment on above: Performed By: #### C UU, ADDONUAPLUS, UCREA, YUN, UROSMO #### [address] [place] [address] [place] MCV (RBC) [Entitic vol] 100.2 fL High 80-100 [facility] Comment on above: Performed By: #### C UU, ADDONUAPLUS, UCREA, YUN, UROSMO #### [facility] [address] Mean Corpuscular HGB Conc 33.8 g/dL Normal 32.0-35.0 [facility] Comment on above: Performed By: #### C UU, ADDONUAPLUS, UCREA, YUN, UROSMO #### [facility] [address] Monocytes (Bld) [#/Vol] 0.9 10*3/uL High 0.0-0.8 [facility] Comment on above: Performed By: #### C UU, ADDONUAPLUS, UCREA, YUN, UROSMO #### [facility] [address] [place] [address] [place] Monocytes/100 WBC (Bld) 9.5 % Normal . [facility] Comment on above: Performed By: #### C UU, ADDONUAPLUS, UCREA, YUN, UROSMO #### [address] Neutrophils (Bld) [#/Vol] 7.2 10*3/uL Normal 1.8-7.7 [facility] Comment on above: Performed By: #### C UU, ADDONUAPLUS, UCREA, YUN, UROSMO #### [facility] [address] Neutrophils/100 WBC (Bld) 78.8 % Normal . [facility] Comment on above: Performed By: #### C UU, ADDONUAPLUS, UCREA, YUN, UROSMO #### [facility] [address] [place] [address] [place] Nucleated RBC/100 WBC (Bld) [Ratio] 0.2 % Normal 0-0.5 [facility] Comment on above: Performed By: #### C UU, ADDONUAPLUS, UCREA, YUN, UROSMO #### [facility] [address] Platelet mean volume (Bld) [Entitic vol] 7.1 fL Normal 6.3-10.7 [facility] Comment on above: Performed By: #### C UU, ADDONUAPLUS, UCREA, YUN, UROSMO #### [facility] [address] Platelets (Bld) [#/Vol] 212 10*3/uL Normal 150-450 [facility] Comment on above: Performed By: #### C UU, ADDONUAPLUS, UCREA, YUN, UROSMO #### [address] RBC (Bld) [#/Vol] 2.17 10*6/uL Low 3.60-5.00 [facility] Comment on above: Performed By: #### C UU, ADDONUAPLUS, UCREA, YUN, UROSMO #### [address] WBC (Bld) [#/Vol] 9.1 10*3/uL Normal 4.5-11.0 [facility] Comment on above: Performed By: #### C UU, ADDONUAPLUS, UCREA, YUN, UROSMO #### [address] Haptoglobinon 11-07-2021 Haptoglobin 245 mg/dL Normal 37-246 [facility] Comment on above: Result Comment: PERF ORMED BY: [place] [address] PATHOLOGIST INTERVENTIONAL NEURORADIOLOGIST GERA CASTELLANOS M.D. Performed By: #### C UU, ADDONUAPLUS, UCREA, YUN, UROSMO #### [address] Hemoglobin and Hematocriton 11-07-2021 Hematocrit (Bld) [Volume fraction] 21.8 % Low 34.0-46.4 [facility] Comment on above: Result Comment: PERF ORMED BY: [place] [address] PATHOLOGIST INTERVENTIONAL NEURORADIOLOGIST GERA CASTELLANOS M.D. Performed By: #### C UU, ADDONUAPLUS, UCREA, YUN, UROSMO #### [facility] [address] Hemoglobin (Bld) [Mass/Vol] 7.3 g/dL Low 11.8-15.4 [facility] Comment on above: Performed By: #### C UU, ADDONUAPLUS, UCREA, YUN, UROSMO #### [address] Iron and TIBC Profileon -07 21-2021 % Iron Saturation 14.0 % Low 20-50 [facility] Comment on above: Performed By: #### C UU, ADDONUAPLUS, UCREA, YUN, UROSMO #### [address] Iron [Mass/Vol] 44 ug/dL Normal 40-150 [facility] Comment on above: Performed By: #### C UU, ADDONUAPLUS, UCREA, YUN, UROSMO #### [address] Total Iron Binding Capacity 295 ug/dL Normal 255-450 [facility] Comment on above: Performed By: #### C UU, ADDONUAPLUS, UCREA, YUN, UROSMO #### [address] Transferrin [Mass/Vol] 211 mg/dL Normal 180-380 [facility] Comment on above: Result Comment: PERF ORMED BY: [facility] [address] [place] [address] PATHOLOGIST INTERVENTIONAL NEURORADIOLOGIST GERA CASTELLANOS M.D. Performed By: #### C UU, ADDONUAPLUS, UCREA, YUN, UROSMO #### [address] [place] [address] [facility] 11-07-2021 L - -------- Specimen: [id number] Received: 11/07/21 Status: BEL Bergman Num: [id number] Spec Type: Impression Subm Dr: Aissatou Sotelo MD Tissues: PATHBBK Procedures: PATHREVIEW -------- Patient Age/Sex Location Account Attending Physician -------- Linda Nascimento 71/F 3T [id number] Javi Pearson MD -------- SPEC NUM: [id number] RECD: 11/07/21 STATUS: BEL BERGMAN NUM: [id number] SYLVIA: 11/07/21- SUBM DR: Aissatou Sotelo MD ENTERED: 11/07/[address] [facility] [address]: Ave Mehta MD SPEC TYPE: Impression DEPT: [place] ORDERED: PATHREVIEW ORDERED: PATHREVIEW Pathologist Review Moderate macrocytic normochromic anemia with mild anisocytosis. Rare ovalocytes and basophilic stippling are noted. Liver disease, vitamin B-12/folate deficiency, renal insufficiency and drug effect should be considered. Mild neutrophilia with occasional toxic granulation, favor reactive etiology. [id number] -------- -------- Specimen: [id number] Received: 11/07/21 Status: BEL Bergman Num: [id number] Spec Type: Impression Subm Dr: Aissatou Sotelo MD Tissues: PATHBBK Procedures: PATHREVIEW -------- Patient: Linda Nascimento [id number] (Continued) -------- Signed (signature on file) Gera Castellanos MD 11/09/21 1158 Normal [facility] LDH Lactate Dehydrogenaseon 11-07-2021 LDH Lactate Dehydrogenase 184 U/L Normal 45-190 [facility] Comment on above: Performed By: #### C UU, ADDONUAPLUS, UCREA, YUN, UROSMO #### [address] Pathologist Slide Reviewon 0 11-07-2021 Pathologist Slide Review Ordered Path Review [facility] Comment on above: Result Comment: PERF ORMED BY: [place] [address] PATHOLOGIST INTERVENTIONAL NEURORADIOLOGIST GERA CASTELLANOS M.D. Performed By: #### C UU, ADDONUAPLUS, UCREA, YUN, UROSMO #### [address] Reticulocyte Counton 022 Reticulocyte Number 0.062 10*6/uL Normal 0.024-0.084 [facility] Comment on above: Result Comment: PERF ORMED BY: [place] [address] PATHOLOGIST INTERVENTIONAL NEURORADIOLOGIST GERA CASTELLANOS M.D. Performed By: #### C UU, ADDONUAPLUS, UCREA, YUN, UROSMO #### [place] [id number] [facility] Reticulocyte Percent 2.8 % High 0.5-1.5 [facility] Comment on above: Performed By: #### C UU, ADDONUAPLUS, UCREA, YUN, UROSMO #### [place] [id number] [place] Stool Occult Blood (Immuno)o n 11-07-2021 Stool Occult Blood (Immuno) Occult Blood (Immuno) Positive for Occult Blood by Immunochemical Methodology Reference range = Negative PERFORMED BY: [place] [address] PATHOLOGIST INTERVENTIONAL NEURORADIOLOGIST GERA CASTELLANOS M.D. Normal [facility] Comment on above: Performed By: #### C UU, ADDONUAPLUS, UCREA, YUN, UROSMO #### [address] Basic Metabolic Panelon 05- Calcium [Mass/Vol] 8.8 mg/dL Normal 8.2-10.2 [facility] Comment on above: Performed By: #### C UU, ADDONUAPLUS, UCREA, YUN, UROSMO #### [address] Chloride [Moles/Vol] 103 mmol/L Normal 95-114 [facility] Comment on above: Performed By: #### C UU, ADDONUAPLUS, UCREA, YUN, UROSMO #### [address] CO2 [Moles/Vol] 23.7 mmol/L Normal 22.0-30.0 [facility] Comment on above: Performed By: #### C UU, ADDONUAPLUS, UCREA, YUN, UROSMO #### [address] Creatinine [Mass/Vol] 0.94 mg/dL Normal 0.44-1.03 [facility] Comment on above: Performed By: #### C UU, ADDONUAPLUS, UCREA, YUN, UROSMO #### [address] Creatinine Clr Calc Pharmacy 67.79 [facility] Comment on above: Result Comment: PERF ORMED BY: [place] [address] PATHOLOGIST INTERVENTIONAL NEURORADIOLOGIST GERA CASTELLANOS M.D. Performed By: #### C UU, ADDONUAPLUS, UCREA, YUN, UROSMO #### [facility] [address] Estimated GFR ( Neela > 60 [facility] Comment on above: Result Comment: GFR estimated reference range: According to KDOQI guidelines, <60 ml/min/1.73m2 is sufficient to diagnose a patient with chronic kidney disease. Performed By: #### C UU, ADDONUAPLUS, UCREA, YUN, UROSMO #### [facility] [address] Estimated GFR (Non- Am 58 [facility] Comment on above: Performed By: #### C UU, ADDONUAPLUS, UCREA, YUN, UROSMO #### [facility] [address] Glucose [Mass/Vol] 107 mg/dL High 70-100 [facility] Comment on above: Result Comment: [place] Glucose Reference Range is dependent on time and content of last meal. Glucose of more than 200 mg/dL in a nonstressed, ambulatory subject supports the diagnosis of Diabetes Mellitus. ADA recommended reference range Performed By: #### C UU, ADDONUAPLUS, UCREA, YUN, UROSMO #### [facility] [address] Potassium [Moles/Vol] 4.7 mmol/L Normal 3.5-5.1 [facility] Comment on above: Performed By: #### C UU, ADDONUAPLUS, UCREA, YUN, UROSMO #### [facility] [address] Sodium [Moles/Vol] 133 mmol/L Low 136-146 [facility] Comment on above: Performed By: #### C UU, ADDONUAPLUS, UCREA, YUN, UROSMO #### [facility] [address] Urea nitrogen [Mass/Vol] 23 mg/dL Normal 03-04 [facility] Comment on above: Performed By: #### C UU, ADDONUAPLUS, UCREA, YUN, UROSMO #### [facility] [address] Hemoglobin and Hematocriton 11-06-2021 Hematocrit (Bld) [Volume fraction] 23.7 % Low 34.0-46.4 [facility] Comment on above: Result Comment: PERF ORMED BY: [place] [address] PATHOLOGIST INTERVENTIONAL NEURORADIOLOGIST GERA CASTELLANOS M.D. Performed By: #### C UU, ADDONUAPLUS, UCREA, YUN, UROSMO #### [address] Hemoglobin (Bld) [Mass/Vol] 8.1 g/dL Low 11.8-15.4 [facility] Comment on above: Performed By: #### C UU, ADDONUAPLUS, UCREA, YUN, UROSMO #### [address] Hematocrit (Bld) [Volume fraction] 22.3 % Low 34.0-46.4 [facility] Comment on above: Result Comment: PERF ORMED BY: [place] [address] PATHOLOGIST INTERVENTIONAL NEURORADIOLOGIST GERA CASTELLANOS M.D. Performed By: #### C UU, ADDONUAPLUS, UCREA, YUN, UROSMO #### [address] Hemoglobin (Bld) [Mass/Vol] 7.7 g/dL Low 11.8-15.4 [facility] Comment on above: Performed By: #### C UU, ADDONUAPLUS, UCREA, YUN, UROSMO #### [address] Osmolality, Urineon 11-07-19 Osmolality, Urine 357 mosm Normal 250-900 [facility] Comment on above: Result Comment: PERF ORMED BY: [place] [address] PATHOLOGIST INTERVENTIONAL NEURORADIOLOGIST GERA CASTELLANOS M.D. Performed By: #### C UU, ADDONUAPLUS, UCREA, YUN, UROSMO #### [address] Sodium, Urineon 11-06-2021 Sodium (U) [Moles/Vol] 15.0 mmol/L Normal [facility] Comment on above: Result Comment: No r eference range established PERFORMED BY: [place] [address] PATHOLOGIST INTERVENTIONAL NEURORADIOLOGIST GERA CASTELLANOS M.D. Performed By: #### C UU, ADDONUAPLUS, UCREA, YUN, UROSMO #### [address] Basic Metabolic Panelon 05- Calcium [Mass/Vol] 8.4 mg/dL Normal 8.2-10.2 [facility] Comment on above: Performed By: #### C UU, ADDONUAPLUS, UCREA, YUN, UROSMO #### [address] Chloride [Moles/Vol] 99 mmol/L Normal 95-114 [facility] Comment on above: Performed By: #### C UU, ADDONUAPLUS, UCREA, YUN, UROSMO #### [address] CO2 [Moles/Vol] 22.4 mmol/L Normal 22.0-30.0 [facility] Comment on above: Performed By: #### C UU, ADDONUAPLUS, UCREA, YUN, UROSMO #### [address] Creatinine [Mass/Vol] 1.29 mg/dL High 0.44-1.03 [facility] Comment on above: Performed By: #### C UU, ADDONUAPLUS, UCREA, YUN, UROSMO #### [facility] [address] [place] [address] [place] Creatinine Clr Calc Pharmacy 48.68 [facility] Comment on above: Result Comment: PERF ORMED BY: [facility] [address] [place] [address] PATHOLOGIST INTERVENTIONAL NEURORADIOLOGIST GERA CASTELLANOS M.D. Performed By: #### C UU, ADDONUAPLUS, UCREA, YUN, UROSMO #### [facility] [address] Estimated GFR ( Neela 49 [facility] Comment on above: Result Comment: GFR estimated reference range: According to KDOQI guidelines, <60 ml/min/1.73m2 is sufficient to diagnose a patient with chronic kidney disease. Performed By: #### C UU, ADDONUAPLUS, UCREA, YUN, UROSMO #### [facility] [address] Estimated GFR (Non- Am 41 [facility] Comment on above: Performed By: #### C UU, ADDONUAPLUS, UCREA, YUN, UROSMO #### [facility] [address] Glucose [Mass/Vol] 124 mg/dL High 70-100 [facility] Comment on above: Result Comment: [place] Glucose Reference Range is dependent on time and content of last meal. Glucose of more than 200 mg/dL in a nonstressed, ambulatory subject supports the diagnosis of Diabetes Mellitus. ADA recommended reference range Performed By: #### C UU, ADDONUAPLUS, UCREA, YUN, UROSMO #### [facility] [address] Potassium [Moles/Vol] 5.1 mmol/L Normal 3.5-5.1 [facility] Comment on above: Performed By: #### C UU, ADDONUAPLUS, UCREA, YUN, UROSMO #### [address] Sodium [Moles/Vol] 129 mmol/L Low 136-146 [facility] Comment on above: Performed By: #### C UU, ADDONUAPLUS, UCREA, YUN, UROSMO #### [address] Urea nitrogen [Mass/Vol] 27 mg/dL High 9- [facility] Comment on above: Performed By: #### C UU, ADDONUAPLUS, UCREA, YUN, UROSMO #### [address] Complete Blood Count Auto Di ffon 11-05-2021 Basophils (Bld) [#/Vol] 0.0 10*3/uL Normal 0.0-0.2 [facility] Comment on above: Result Comment: PERF ORMED BY: [place] [address] PATHOLOGIST INTERVENTIONAL NEURORADIOLOGIST GERA CASTELLANOS M.D. Performed By: #### C UU, ADDONUAPLUS, UCREA, YUN, UROSMO #### [address] Basophils/100 WBC (Bld) 0.2 % Normal . [facility] Comment on above: Performed By: #### C UU, ADDONUAPLUS, UCREA, YUN, UROSMO #### [address] Eosinophils (Bld) [#/Vol] 0.1 10*3/uL Normal 0.0-0.45 [facility] Comment on above: Performed By: #### C UU, ADDONUAPLUS, UCREA, YUN, UROSMO #### [address] Eosinophils/100 WBC (Bld) 0.9 % Normal . [facility] Comment on above: Performed By: #### C UU, ADDONUAPLUS, UCREA, YUN, UROSMO #### [facility] [address] Erythrocyte distribution width (RBC) [Ratio] 14.9 % Normal 11.9-15.3 [facility] Comment on above: Performed By: #### C UU, ADDONUAPLUS, UCREA, YUN, UROSMO #### [facility] [address] Hematocrit (Bld) [Volume fraction] 21.0 % Low 34.0-46.4 [facility] Comment on above: Performed By: #### C UU, ADDONUAPLUS, UCREA, YUN, UROSMO #### [address] Hemoglobin (Bld) [Mass/Vol] 6.9 g/dL Low 11.8-15.4 [facility] Comment on above: Performed By: #### C UU, ADDONUAPLUS, UCREA, YUN, UROSMO #### [address] Lymphocytes (Bld) [#/Vol] 0.5 10*3/uL Low 1.00-4.8 [facility] Comment on above: Performed By: #### C UU, ADDONUAPLUS, UCREA, YUN, UROSMO #### [address] Lymphocytes/100 WBC (Bld) 5.3 % Normal . [facility] Comment on above: Performed By: #### C UU, ADDONUAPLUS, UCREA, YUN, UROSMO #### [address] MCH (RBC) [Entitic mass] 33.1 pg Normal 24.7-34.3 [facility] Comment on above: Performed By: #### C UU, ADDONUAPLUS, UCREA, YUN, UROSMO #### [address] MCV (RBC) [Entitic vol] 100.2 fL High 80-100 [facility] Comment on above: Performed By: #### C UU, ADDONUAPLUS, UCREA, YUN, UROSMO #### [facility] [address] Mean Corpuscular HGB Conc 33.1 g/dL Normal 32.0-35.0 [facility] Comment on above: Performed By: #### C UU, ADDONUAPLUS, UCREA, YUN, UROSMO #### [facility] [address] Monocytes (Bld) [#/Vol] 0.8 10*3/uL Normal 0.0-0.8 [facility] Comment on above: Performed By: #### C UU, ADDONUAPLUS, UCREA, YUN, UROSMO #### [facility] [address] Monocytes/100 WBC (Bld) 8.6 % Normal . [facility] Comment on above: Performed By: #### C UU, ADDONUAPLUS, UCREA, YUN, UROSMO #### [facility] [address] Neutrophils (Bld) [#/Vol] 7.6 10*3/uL Normal 1.8-7.7 [facility] Comment on above: Performed By: #### C UU, ADDONUAPLUS, UCREA, YUN, UROSMO #### [facility] [address] Neutrophils/100 WBC (Bld) 85.0 % Normal . [facility] Comment on above: Performed By: #### C UU, ADDONUAPLUS, UCREA, YUN, UROSMO #### [facility] [address] [place] [address] [place] Nucleated RBC/100 WBC (Bld) [Ratio] 0.0 % Normal 0-0.5 [facility] Comment on above: Performed By: #### C UU, ADDONUAPLUS, UCREA, YUN, UROSMO #### [facility] [address] Platelet mean volume (Bld) [Entitic vol] 7.3 fL Normal 6.3-10.7 [facility] Comment on above: Performed By: #### C UU, ADDONUAPLUS, UCREA, YUN, UROSMO #### [facility] [address] Platelets (Bld) [#/Vol] 197 10*3/uL Normal 150-450 [facility] Comment on above: Performed By: #### C UU, ADDONUAPLUS, UCREA, YUN, UROSMO #### [facility] [address] RBC (Bld) [#/Vol] 2.10 10*6/uL Low 3.60-5.00 [facility] [place] [facility] Comment on above: Performed By: #### C UU, ADDONUAPLUS, UCREA, YUN, UROSMO #### [facility] [address] WBC (Bld) [#/Vol] 8.9 10*3/uL Normal 4.5-11.0 [facility] Comment on above: Performed By: #### C UU, ADDONUAPLUS, UCREA, YUN, UROSMO #### [address] Creatinine, Urine (Random)on 11-05-2021 Creatinine, Urine (Random) 47.6 mg/dL Normal [facility] Comment on above: Result Comment: No r eference range established Performed By: #### C UU, ADDONUAPLUS, UCREA, YUN, UROSMO #### [facility] [address] [place] [address] [place] Dipstick and Microscopicon 0 11-05-2021 Appearance (U) Clear Normal Clear [facility] Comment on above: Order Comment: Name Collection Type:: Voided Performed By: #### C UU, ADDONUAPLUS, UCREA, YUN, UROSMO #### [facility] [address] [place] [address] Bacteria,Urine None Seen Normal None Seen [facility] Comment on above: Order Comment: Name Collection Type:: Voided Performed By: #### C UU, ADDONUAPLUS, UCREA, YUN, UROSMO #### [facility] [address] [place] [address] Bilirubin,Urine Negative Normal Negative [facility] Comment on above: Order Comment: Name Collection Type:: Voided Performed By: #### C UU, ADDONUAPLUS, UCREA, YUN, UROSMO #### [address] Color (U) Yellow Normal Yellow [facility] Comment on above: Order Comment: Name Collection Type:: Voided Performed By: #### C UU, ADDONUAPLUS, UCREA, YUN, UROSMO #### [address] Glucose Ql (U) Normal Normal Normal [facility] Comment on above: Order Comment: Name Collection Type:: Voided Performed By: #### C UU, ADDONUAPLUS, UCREA, YUN, UROSMO #### [address] Hyaline Casts,Urine 0-8 Normal 0-8 [facility] Comment on above: Order Comment: Name Collection Type:: Voided Result Comment: PERF ORMED BY: [address] [place] [address] PATHOLOGIST INTERVENTIONAL NEURORADIOLOGIST GERA CASTELLANOS M.D. Performed By: #### C UU, ADDONUAPLUS, UCREA, YUN, UROSMO #### [address] Ketones Ql (U) Negative Normal Negative [facility] Comment on above: Order Comment: Name Collection Type:: Voided Performed By: #### C UU, ADDONUAPLUS, UCREA, YUN, UROSMO #### [address] Leukocyte esterase Test strip Ql (U) 1+ High Negative [facility] Comment on above: Order Comment: Name Collection Type:: Voided Performed By: #### C UU, ADDONUAPLUS, UCREA, YUN, UROSMO #### [facility] [address] [address] Nitrite,Urine Negative Normal Negative [facility] Comment on above: Order Comment: Name Collection Type:: Voided Performed By: #### C UU, ADDONUAPLUS, UCREA, YUN, UROSMO #### [address] Occult Blood,Urine Negative Normal Negative [facility] Comment on above: Order Comment: Name Collection Type:: Voided Result Comment: PERF ORMED BY: [place] [address] PATHOLOGIST INTERVENTIONAL NEURORADIOLOGIST GERA CASTELLANOS M.D. Performed By: #### C UU, ADDONUAPLUS, UCREA, YUN, UROSMO #### [address] pH (U) 5.5 [pH] Normal 5.0-9.0 [facility] Comment on above: Order Comment: Name Collection Type:: Voided Performed By: #### C UU, ADDONUAPLUS, UCREA, YUN, UROSMO #### [facility] [address] [place] [address] Protein,Urine Negative Normal Negative [facility] Comment on above: Order Comment: Name Collection Type:: Voided Performed By: #### C UU, ADDONUAPLUS, UCREA, YUN, UROSMO #### [facility] [address] [place] [address] RBC,Urine 1-2 Normal 0-4 [facility] Comment on above: Order Comment: Name Collection Type:: Voided Performed By: #### C UU, ADDONUAPLUS, UCREA, YUN, UROSMO #### [facility] [address] [place] [address] [place] Specificy [place],Urine 1.008 Normal 1.001-1.030 [facility] Comment on above: Order Comment: Name Collection Type:: Voided Performed By: #### C UU, ADDONUAPLUS, UCREA, YUN, UROSMO #### [address] Squamous Epithelial Cell,Urine 0-1 Normal 0-2 [facility] Comment on above: Order Comment: Name Collection Type:: Voided Performed By: #### C UU, ADDONUAPLUS, UCREA, YUN, UROSMO #### [address] Urobilinogen,Urine Normal Normal Normal [facility] Comment on above: Order Comment: Name Collection Type:: Voided Performed By: #### C UU, ADDONUAPLUS, UCREA, YUN, UROSMO #### [address] WBC,Urine 5-9 High 0-4 [facility] Comment on above: Order Comment: Name Collection Type:: Voided Performed By: #### C UU, ADDONUAPLUS, UCREA, YUN, UROSMO #### [address] Hemoglobin and Hematocriton 11-05-2021 Hematocrit (Bld) [Volume fraction] 22.8 % Low 34.0-46.4 [facility] Comment on above: Result Comment: PERF ORMED BY: [place] [address] PATHOLOGIST INTERVENTIONAL NEURORADIOLOGIST GERA CASTELLANOS M.D. Performed By: #### C UU, ADDONUAPLUS, UCREA, YUN, UROSMO #### [address] Hemoglobin (Bld) [Mass/Vol] 7.8 g/dL Low 11.8-15.4 [facility] Comment on above: Performed By: #### C UU, ADDONUAPLUS, UCREA, YUN, UROSMO #### [address] Hematocrit (Bld) [Volume fraction] 25.3 % Low 34.0-46.4 [facility] Comment on above: Result Comment: PERF ORMED BY: [place] [address] PATHOLOGIST INTERVENTIONAL NEURORADIOLOGIST GERA CASTELLANOS M.D. Performed By: #### C UU, ADDONUAPLUS, UCREA, YUN, UROSMO #### [address] Hemoglobin (Bld) [Mass/Vol] 8.5 g/dL Low 11.8-15.4 [facility] Comment on above: Performed By: #### C UU, ADDONUAPLUS, UCREA, YUN, UROSMO #### [place] [address] [place] Osmolality, Urineon 11-06-19 22 Osmolality, Urine 207 mosm Low 250-900 [facility] Comment on above: Result Comment: PERF ORMED BY: [place] [address] PATHOLOGIST INTERVENTIONAL NEURORADIOLOGIST GERA CASTELLANOS M.D. Performed By: #### C UU, ADDONUAPLUS, UCREA, YUN, UROSMO #### [address] Sodiumon 11-05-2021 Sodium [Moles/Vol] 131 mmol/L Low 136-146 [facility] Comment on above: Result Comment: PERF ORMED BY: [place] [address] PATHOLOGIST INTERVENTIONAL NEURORADIOLOGIST GERA CASTELLANOS M.D. Performed By: #### C UU, ADDONUAPLUS, UCREA, YUN, UROSMO #### [address] Sodium [Moles/Vol] 131 mmol/L Low 136-146 [facility] Comment on above: Result Comment: PERF ORMED BY: [place] [address] PATHOLOGIST INTERVENTIONAL NEURORADIOLOGIST GERA CASTELLANOS M.D. Performed By: #### C UU, ADDONUAPLUS, UCREA, YUN, UROSMO #### [facility] [address] [place] [address] Sodium [Moles/Vol] 126 mmol/L Low 136-146 [facility] Comment on above: Result Comment: PERF ORMED BY: [place] [address] PATHOLOGIST INTERVENTIONAL NEURORADIOLOGIST GERA CASTELLANOS M.D. Performed By: #### N A #### [address] Sodium, Urine (Random)on Sodium, Urine (Random) < 10 Normal [facility] Comment on above: Result Comment: No r eference range established PERFORMED BY: [place] [address] PATHOLOGIST INTERVENTIONAL NEURORADIOLOGIST GERA CASTELLANOS M.D. Performed By: #### C UU, ADDONUAPLUS, UCREA, YUN, UROSMO #### [facility] [address] [place] [address] Urine Cultureon 11-05-2021 Bacteria identified Cx Nom (U) 75,000 colonies/ml mixed bacterial skin contaminants including mixed gram negative bacilli - 2 Days PERFORMED BY: [place] [address] PATHOLOGIST INTERVENTIONAL NEURORADIOLOGIST GERA CASTELLANOS M.D. Normal [facility] Comment on above: Performed By: #### C UU, ADDONUAPLUS, UCREA, YUN, UROSMO #### [facility] [address] [place] [address] [place] ABO/Rh Retypeon 11-04-2021 ABO/RH Recheck Result Positive Normal [facility] Comment on above: Result Comment: PERF ORMED BY: [place] [address] PATHOLOGIST INTERVENTIONAL NEURORADIOLOGIST GERA CASTELLANOS M.D. COVID-19 Antigenon 2 COVID-19 [...] developed and its performance characteristic determined by [employer] and validated at [facility]. This test has not been FDA cleared [...] for SARS Antigen by LION PERFORMED BY: [place] [address] PATHOLOGIST INTERVENTIONAL NEURORADIOLOGIST GERA CASTELLANOS M.D. [facility] Comment on above: Performed By: #### C UU, ADDONUAPLUS, UCREA, YUN, UROSMO #### [address] COVID-19 FRMCon 11-04-2021 SARS-CoV-2 (COVID-19) RNA DONNIE+probe Ql (Unsp spec) Negative Normal Negative [facility] Comment on above: Order Comment: Healt hcare Worker?: N Result Comment: Testing for SARS-CoV-2 by RT-PCR This test was developed and its performance characteristics determined by [employer]) and validated at the [facility]. This test has not been FDA cleared [...] is terminated or revoked sooner. PERFORMED BY: [place] [address] PATHOLOGIST INTERVENTIONAL NEURORADIOLOGIST GERA CASTELLANOS M.D. Performed By: #### C UU, ADDONUAPLUS, UCREA, YUN, UROSMO #### [address] abdomen pelvis wo conon 0 11-04-2021 CT abdomen pelvis wo con [facility] [place] [address] CT Scan Report Signed Patient: Linda Nascimento MR#: [id number] 840 : 1950 Acct:[id number] Age/Sex: 71 / F ADM Date: 11/04/21 Loc: Room: [address] [place] [address] Type: ADM IN Attending Dr: Aissatou Sotelo [...] Haines Jr., M.D.11/04/2021 6:26 PM Dictation Location: [place] [address] Transcribed By: [facility] 11/04/211825 Dictated By: Marin Haines Jr, MD 11/04/211813 Signed By: 11/04/211825 [facility] [place] [address] CT Scan Report Signed Patient: Linda Nascimento MR#: [id number] 840 : 1950 Acct:[id number] Age/Sex: 71 / F ADM Date: 11/04/21 Loc: Room: [address] [place] [address] Type: ADM IN Attending Dr: Aissatou Sotelo [...] Haines Jr., M.D.11/04/2021 6:14 PM Dictation Location: [place] [address] Transcribed By: [facility] 11/04/211813 Dictated By: Marin Haines Jr, MD 11/04/211810 Signed By: 11/04/211813 Normal [facility] Complete Blood Count Auto Di ffon 11-04-2021 Basophils (Bld) [#/Vol] 0.0 10*3/uL Normal 0.0-0.2 [facility] Comment on above: Order Comment: Name Collection Type:: Voided Result Comment: PERF ORMED BY: [place] [address] PATHOLOGIST INTERVENTIONAL NEURORADIOLOGIST GERA CASTELLANOS M.D. Performed By: #### C UU, ADDONUAPLUS, UCREA, YUN, UROSMO #### [facility] [address] [place] [address] Basophils/100 WBC (Bld) 0.1 % Normal . [facility] Comment on above: Order Comment: Name Collection Type:: Voided Performed By: #### C UU, ADDONUAPLUS, UCREA, YUN, UROSMO #### [facility] [address] Eosinophils (Bld) [#/Vol] 0.0 10*3/uL Normal 0.0-0.45 [facility] Comment on above: Order Comment: Name Collection Type:: Voided Performed By: #### C UU, ADDONUAPLUS, UCREA, YUN, UROSMO #### [address] Eosinophils/100 WBC (Bld) 0.2 % Normal . [facility] Comment on above: Order Comment: Name Collection Type:: Voided Performed By: #### C UU, ADDONUAPLUS, UCREA, YUN, UROSMO #### [address] Erythrocyte distribution width (RBC) [Ratio] 13.5 % Normal 11.9-15.3 [facility] Comment on above: Order Comment: Name Collection Type:: Voided Performed By: #### C UU, ADDONUAPLUS, UCREA, YUN, UROSMO #### [address] Hematocrit (Bld) [Volume fraction] 20.4 % Low 34.0-46.4 [facility] Comment on above: Order Comment: Name Collection Type:: Voided Performed By: #### C UU, ADDONUAPLUS, UCREA, YUN, UROSMO #### [address] Hemoglobin (Bld) [Mass/Vol] 7.0 g/dL Low 11.8-15.4 [facility] Comment on above: Order Comment: Name Collection Type:: Voided Performed By: #### C UU, ADDONUAPLUS, UCREA, YUN, UROSMO #### [address] Lymphocytes (Bld) [#/Vol] 0.5 10*3/uL Low 1.00-4.8 [facility] Comment on above: Order Comment: Name Collection Type:: Voided Performed By: #### C UU, ADDONUAPLUS, UCREA, YUN, UROSMO #### [facility] [address] Lymphocytes/100 WBC (Bld) 5.2 % Normal . [facility] Comment on above: Order Comment: Name Collection Type:: Voided Performed By: #### C UU, ADDONUAPLUS, UCREA, YUN, UROSMO #### [address] MCH (RBC) [Entitic mass] 34.8 pg High 24.7-34.3 [facility] Comment on above: Order Comment: Name Collection Type:: Voided Performed By: #### C UU, ADDONUAPLUS, UCREA, YUN, UROSMO #### [address] MCV (RBC) [Entitic vol] 101.9 fL High 80-100 [facility] Comment on above: Order Comment: Name Collection Type:: Voided Performed By: #### C UU, ADDONUAPLUS, UCREA, YUN, UROSMO #### [address] Mean Corpuscular HGB Conc 34.2 g/dL Normal 32.0-35.0 [facility] Comment on above: Order Comment: Name Collection Type:: Voided Performed By: #### C UU, ADDONUAPLUS, UCREA, YUN, UROSMO #### [address] Monocytes (Bld) [#/Vol] 0.7 10*3/uL Normal 0.0-0.8 [facility] Comment on above: Order Comment: Name Collection Type:: Voided Performed By: #### C UU, ADDONUAPLUS, UCREA, YUN, UROSMO #### [address] Monocytes/100 WBC (Bld) 6.6 % Normal . [facility] Comment on above: Order Comment: Name Collection Type:: Voided Performed By: #### C UU, ADDONUAPLUS, UCREA, YUN, UROSMO #### [facility] [address] [place] [address] [place] Neutrophils (Bld) [#/Vol] 8.8 10*3/uL High 1.8-7.7 [facility] Comment on above: Order Comment: Name Collection Type:: Voided Performed By: #### C UU, ADDONUAPLUS, UCREA, YUN, UROSMO #### [facility] [address] Neutrophils/100 WBC (Bld) 87.9 % Normal . [facility] Comment on above: Order Comment: Name Collection Type:: Voided Performed By: #### C UU, ADDONUAPLUS, UCREA, YUN, UROSMO #### [address] Nucleated RBC/100 WBC (Bld) [Ratio] 0.0 % Normal 0-0.5 [facility] Comment on above: Order Comment: Name Collection Type:: Voided Performed By: #### C UU, ADDONUAPLUS, UCREA, YUN, UROSMO #### [facility] [address] [place] [address] Platelet mean volume (Bld) [Entitic vol] 6.3 fL Normal 6.3-10.7 [facility] Comment on above: Order Comment: Name Collection Type:: Voided Performed By: #### C UU, ADDONUAPLUS, UCREA, YUN, UROSMO #### [facility] [address] [place] [address] [place] Platelets (Bld) [#/Vol] 219 10*3/uL Normal 150-450 [facility] Comment on above: Order Comment: Name Collection Type:: Voided Performed By: #### C UU, ADDONUAPLUS, UCREA, YUN, UROSMO #### [place] [address] [place] RBC (Bld) [#/Vol] 2.00 10*6/uL Low 3.60-5.00 [facility] Comment on above: Order Comment: Name Collection Type:: Voided Performed By: #### C UU, ADDONUAPLUS, UCREA, YUN, UROSMO #### [address] WBC (Bld) [#/Vol] 10.0 10*3/uL Normal 4.5-11.0 [facility] Comment on above: Order Comment: Name Collection Type:: Voided Performed By: #### C UU, ADDONUAPLUS, UCREA, YUN, UROSMO #### [address] Comprehensive Metabolic Pane mahendra 11-04-2021 Albumin [Mass/Vol] 2.8 g/dL Low 3.2-5.5 [facility] Comment on above: Performed By: #### C UU, ADDONUAPLUS, UCREA, YUN, UROSMO #### [address] Albumin/Globulin [Mass ratio] 1.2 {ratio} Normal [facility] Comment on above: Performed By: #### C UU, ADDONUAPLUS, UCREA, YUN, UROSMO #### [address] ALP [Catalytic activity/Vol] 70 U/L Normal 32-92 [facility] Comment on above: Performed By: #### C UU, ADDONUAPLUS, UCREA, YUN, UROSMO #### [address] ALT [Catalytic activity/Vol] 15 U/L Normal 10-60 [facility] Comment on above: Performed By: #### C UU, ADDONUAPLUS, UCREA, YUN, UROSMO #### [address] AST [Catalytic activity/Vol] 14 U/L Normal 10-42 [facility] Comment on above: Performed By: #### C UU, ADDONUAPLUS, UCREA, YUN, UROSMO #### [facility] [address] Bilirubin [Mass/Vol] 0.4 mg/dL Normal 0.3-1.2 [facility] Comment on above: Performed By: #### C UU, ADDONUAPLUS, UCREA, YUN, UROSMO #### [facility] [address] Calcium [Mass/Vol] 8.4 mg/dL Normal 8.2-10.2 [facility] Comment on above: Performed By: #### C UU, ADDONUAPLUS, UCREA, YUN, UROSMO #### [address] Chloride [Moles/Vol] 94 mmol/L Low 95-114 [facility] Comment on above: Performed By: #### C UU, ADDONUAPLUS, UCREA, YUN, UROSMO #### [address] CO2 [Moles/Vol] 22.9 mmol/L Normal 22.0-30.0 [facility] Comment on above: Performed By: #### C UU, ADDONUAPLUS, UCREA, YUN, UROSMO #### [address] Creatinine [Mass/Vol] 1.36 mg/dL High 0.44-1.03 [facility] Comment on above: Performed By: #### C UU, ADDONUAPLUS, UCREA, YUN, UROSMO #### [address] Creatinine Clr Calc Pharmacy 45.74 Normal [facility] Comment on above: Result Comment: PERF ORMED BY: [place] [address] PATHOLOGIST INTERVENTIONAL NEURORADIOLOGIST GERA CASTELLANOS M.D. Performed By: #### C UU, ADDONUAPLUS, UCREA, YUN, UROSMO #### [address] Estimated GFR ( Neela 46 Normal [facility] Comment on above: Result Comment: GFR estimated reference range: According to KDOQI guidelines, <60 ml/min/1.73m2 is sufficient to diagnose a patient with chronic kidney disease. Performed By: #### C UU, ADDONUAPLUS, UCREA, YUN, UROSMO #### [facility] [address] Estimated GFR (Non- Am 38 Normal [facility] Comment on above: Performed By: #### C UU, ADDONUAPLUS, UCREA, YUN, UROSMO #### [facility] [address] Globulin (S) [Mass/Vol] 2.4 g/dL [facility] Comment on above: Performed By: #### C UU, ADDONUAPLUS, UCREA, YUN, UROSMO #### [facility] [address] Glucose [Mass/Vol] 112 mg/dL High 70-100 [facility] Comment on above: Result Comment: [place] Glucose Reference Range is dependent on time and content of last meal. Glucose of more than 200 mg/dL in a nonstressed, ambulatory subject supports the diagnosis of Diabetes Mellitus. ADA recommended reference range Performed By: #### C UU, ADDONUAPLUS, UCREA, YUN, UROSMO #### [facility] [address] Potassium [Moles/Vol] 5.2 mmol/L High 3.5-5.1 [facility] Comment on above: Performed By: #### C UU, ADDONUAPLUS, UCREA, YUN, UROSMO #### [facility] [address] Protein [Mass/Vol] 5.2 g/dL Low 6.1-7.9 [facility] Comment on above: Performed By: #### C UU, ADDONUAPLUS, UCREA, YUN, UROSMO #### [facility] [address] [place] [address] [place] Sodium [Moles/Vol] 123 mmol/L Off scale low 136-146 [facility] Comment on above: Result Comment: Resu lts called at 1333 on 11/04/21 Performed By: #### C UU, ADDONUAPLUS, UCREA, YUN, UROSMO #### [facility] [address] [place] [id number] [facility] Urea nitrogen [Mass/Vol] 24 mg/dL High 9-23 [facility] Comment on above: Performed By: #### C UU, ADDONUAPLUS, UCREA, YUN, UROSMO #### [facility] [address] [place] [id number] [facility] ECG 12 lead ECGon 11-04-2021 ECG 12 lead ECG [facility] [place] [address] [place] [address] Electrocardiograph Report Signed Patient: Linda Nascimento MR#: [id number] 840 : 1950 Acct:[id number] Age/Sex: 71 / F ADM Date: 11/04/21 Loc: Room: [address] [place] [address] Type: DIS IN Attending Dr: Javi Pearson [...] Inferior leads Confirmed by Ivan Kendrick DO ([id number]) on 11/04/2021 7:43:30 PM Referred By: Electronically Signed By:Ivan Kendrick DO Transcribed By: MUS Signed By Ivan Kendrick DO 11/04 Normal [facility] Ferritinon 11-04-2021 Ferritin [Mass/Vol] 123.0 ng/mL Normal 11-306.8 [facility] Comment on above: Result Comment: PERF ORMED BY: [facility] [address] [place] [address] PATHOLOGIST INTERVENTIONAL NEURORADIOLOGIST GERA CASTELLANOS M.D. Performed By: #### F E and TIBC, WILDER #### [facility] [address] [place] [address] [place] Iron and TIBC Profileon 10-11 % Iron Saturation 21.0 % Normal 20-50 [facility] Comment on above: Performed By: #### F E and TIBC, WILDER #### [facility] [address] Iron [Mass/Vol] 64 ug/dL Normal 40-150 [facility] Comment on above: Performed By: #### F E and TIBC, WILDER #### [facility] [address] Total Iron Binding Capacity 291 ug/dL Normal 255-450 [facility] Comment on above: Performed By: #### F E and TIBC, WILDER #### [facility] [address] [place] [address] [place] Transferrin [Mass/Vol] 208 mg/dL Normal 180-380 [facility] Comment on above: Performed By: #### F E and TIBC, WILDER #### [facility] [address] [place] [address] [place] LeukoReduced RBCon 2 LeukoReduced RBC NOT AVAILABLE Normal [facility] Osmolalityon 11-04-2021 Osmolality 271 mosm Low 278-305 [facility] Comment on above: Result Comment: PERF ORMED BY: [facility] [address] [place] [address] PATHOLOGIST INTERVENTIONAL NEURORADIOLOGIST GERA CASTELLANOS M.D. Performed By: #### C UU, ADDONUAPLUS, UCREA, YUN, UROSMO #### [facility] [address] [place] [address] [place] Partial Thromboplastin Timeo n 11-04-2021 aPTT Coag (Bld) [Time] 26.7 s Normal 25.1-36.5 [facility] Comment on above: Result Comment: PERF ORMED BY: [place] [address] PATHOLOGIST INTERVENTIONAL NEURORADIOLOGIST GERA CASTELLANOS M.D. Performed By: #### C UU, ADDONUAPLUS, UCREA, YUN, UROSMO #### [address] Potassiumon 11-04-2021 Potassium [Moles/Vol] 4.9 mmol/L Normal 3.5-5.1 [facility] Comment on above: Performed By: #### C UU, ADDONUAPLUS, UCREA, YUN, UROSMO #### [address] Prothrombin Time INRon 11-04 INR Coag (PPP) [Relative time] 1.0 {INR} Normal [facility] Comment on above: Result Comment: INR Therapeutic [...] C UU, ADDONUAPLUS, UCREA, YUN, UROSMO #### [address] PT Coag (PPP) [Time] 11.8 s Normal 9.0-12.9 [facility] Comment on above: Performed By: #### C UU, ADDONUAPLUS, UCREA, YUN, UROSMO #### [address] Sodiumon 11-04-2021 Sodium [Moles/Vol] 125 mmol/L Low 136-146 [facility] Comment on above: Performed By: #### C UU, ADDONUAPLUS, UCREA, YUN, UROSMO #### [facility] [address] Anayeli Ag Negativeon 11-05-19 Anayeli Ag Negative Negative Normal Negative [facility] Comment on above: Result Comment: This is a duplicate Anayeli SARS Antigen (LION) result to be used for statistical tracking purpose only. PERFORMED BY: [place] [address] PATHOLOGIST INTERVENTIONAL NEURORADIOLOGIST GERA CASTELLANOS M.D. Performed By: #### C UU, ADDONUAPLUS, UCREA, YUN, UROSMO #### [facility] [address] [place] [address] Stool Occult Blood (Guaiac)o n 11-04-2021 Stool Occult Blood (Guaiac) Occult Blood Negative for Occult Blood by Guaiac Methodology Reference range = Negative PERFORMED BY: [address] [place] [address] PATHOLOGIST INTERVENTIONAL NEURORADIOLOGIST GERA CASTELLANOS M.D. Normal [facility] Comment on above: Performed By: #### C UU, ADDONUAPLUS, UCREA, YUN, UROSMO #### [facility] [address] [place] [address] Thyroid Stimulating Hormoneo n 11-04-2021 TSH Qn 0.77 m[IU]/L Normal 0.45-5.33 [facility] Comment on above: Performed By: #### C UU, ADDONUAPLUS, UCREA, YUN, UROSMO #### [facility] [address] [place] [address] Troponin I High Sensitivityo n 11-04-2021 Troponin I High Sensitivity 5 pg/mL Normal 0-15 [facility] Comment on above: Result Comment: PERF ORMED BY: [place] [address] PATHOLOGIST INTERVENTIONAL NEURORADIOLOGIST GERA CASTELLANOS M.D. Performed By: #### C UU, ADDONUAPLUS, UCREA, YUN, UROSMO #### [facility] [address] Type and Screenon 11-04-2021 ABO and Rh group Nom (Bld) Blood group O Rh(D) positive Normal [facility] Comment on above: Order Comment: Trans fuse now? N Transfuse now? Y Number of units to transfuse now? 1 Transfuse now? Y Number of units to transfuse now? 1 Transfuse now? Y Number of units to transfuse now? 1 Transfuse now? Y Number of units to transfuse now? 1 Result Comment: PERF ORMED BY: [place] [address] PATHOLOGIST INTERVENTIONAL NEURORADIOLOGIST GERA CASTELLANOS M.D. Vitamin B12on 11-04-2021 Cobalamin (Vitamin B12) [Mass/Vol] 882 pg/mL Normal 180-914 [facility] Comment on above: Performed By: #### C UU, ADDONUAPLUS, UCREA, YUN, UROSMO #### [place] [id number] [facility] Vitamin D 25 Hydroxy Totalon 11-04-2021 Vitamin D 25 Hydroxy Total 84.5 ng/mL Normal 30-100 [facility] Comment on above: Result Comment: LOKI MIN D STATUS 25(OH)VITAMIN D RANGE (ng/mL) Deficient <20 Insufficient 20 to <30 Sufficient 30 to 100 Reference: Maryam MF,[place] NC, Ángela SCHAEFER, et al. Evaluation,treatment, and prevention of vitamin D deficiency; an Endocrine Society clinical practice guideline. JCEM. 2010; 96(7):1911-30. PERFORMED BY: [facility] [address] [place] [address] PATHOLOGIST INTERVENTIONAL NEURORADIOLOGIST GERA CASTELLANOS M.D. Performed By: #### C UU, ADDONUAPLUS, UCREA, YUN, UROSMO #### [place] [id number] [facility] XR hip RT min 2V(w/wo pelvis )*on 11-04-2021 XR hip RT min 2V(w/wo pelvis)* [facility] Main [address] [address] XRay Report Signed Patient: Linda Nascimento MR#: [id number] 840 : 1950 Acct:[id number] Age/Sex: 71 / F ADM Date: 11/04/21 [...] Ambrocio Cintron M.D.11/04/2021 12:43 PM Dictation Location: [place] [address] Transcribed By: [facility] 11/04/21 1243 Dictated By: Ambrocio Cintron DO 11/04/21 1238 Signed By: 11/04/21 1243 Normal [facility] XR knee LT 4V*on 11-04-2021 XR knee LT 4V* [facility] Main [address] [address] XRay Report Signed Patient: Linda Nascimento MR#: [id number] 840 : 1950 Acct:[id number] Age/Sex: 71 / F ADM Date: 11/04/21 Loc: ER Room: Type: REG ER Attending Dr: Ordering Provider: Ivan Kendrick DO Date of Service: 11/04/21 XR/XR knee LT 4V*: fall, pain Copies to: Ivan Kendrick, DO 4 views left knee plain film COMPARISON:None HISTORY:Fell injuring left knee. No fracture, dislocation or focal soft tissue abnormality seen.Small joint effusion present. Diffuse soft tissue prominence identified. XR/XR knee LT 4V* IMPRESSION:No acute bony findings. A moderate joint effusion. Extensive degeneration. Impression dictated by: Ambrocio Cintron M.D.11/04/2021 2:36 PM Dictation Location: [place] [address] Transcribed By: [facility] 11/04/21 1436 Dictated By: Ambrocio Cintron DO 11/04/21 1433 Signed By: 11/04/21 1436 Normal [facility] XR knee LT 2Von 11-03-2021 XR knee LT 2V [facility] Main [place] [address] [place] [address] XRay Report Signed Patient: Linda Nascimento MR#: [id number] 840 : 1950 Acct:[id number] Age/Sex: 71 / F ADM Date: 11/03/21 Loc: [facility] Room: Type: [facility] Attending Dr: Emilie NORRIS Ordering Provider: MYRNA Rodriguez Date of Service: [...] Reymundo Madrid M.D.11/03/2021 4:01 PM Dictation Location: [place] [address] Transcribed By: [facility] 11/03/21 1601 Dictated By: Reymundo Madrid II, MD 11/03/21 1600 Signed By: 11/03/21 1601 [facility] MR lumbar spine wo conon MR lumbar spine wo con [facility] [place] [address] MRI Report Signed Patient: Linda Nascimento MR#: [id number] 840 : 1950 Acct:[id number] Age/Sex: 71 / F ADM Date: 10/26/21 Loc: MR Room: Type: [facility] Attending Dr: Gunnar Fernandez DO Ordering Provider: [...] Reymundo Madrid M.D.10/26/2021 11:37 AM Dictation Location: [place] [address] Transcribed By: [facility] 10/26/21 1137 Dictated By: Reymundo Madrid II, MD 10/26/21 1127 Signed By: 10/26/21 1137 Normal [facility] XR lumbar spine AP/LAT/FLX/E XTon 10-06-2021 XR lumbar spine AP/LAT/FLX/EXT [facility] [place] [address] XRay Report Signed Patient: Linda Nascimento MR#: [id number] 840 : 1950 Acct:[id number] Age/Sex: 71 / F ADM Date: 10/06/21 Loc: [facility] Room: Type: [facility] CLI Attending Dr: Gunnar Fernandez DO Ordering [...] Haines Jr., M.D.10/06/2021 4:07 PM Dictation Location: [place] [address] Transcribed By: [facility] 10/06/21 1607 Dictated By: Marin Haines Jr, MD 10/06/21 1600 Signed By: 10/06/21 1607 [facility] XR lumbar spine AP/LAT/FLX/EXT [facility] [employer] Other XR lumbar spine AP/LAT/FLX/EXT [facility] [employer] Other XR lumbar spine AP/LAT/FLX/EXT [address] [place] [address] [email or web address] Other XR lumbar spine AP/LAT/FLX/[place] [address] [email or web address] Other XR lumbar spine AP/LAT/FLX/EXT XRay Report [email or web address] Other XR lumbar spine AP/LAT/FLX/EXT Signed [email or web address] Other XR lumbar spine AP/LAT/FLX/EXT Patient: Linda Nascimento MR#: [id number] [email or web address] Other XR lumbar spine AP/LAT/FLX/EXT 840 [email or web address] Other XR lumbar spine AP/LAT/FLX/EXT : 1950 Acct:[id number] [email or web address] Other XR lumbar spine AP/LAT/FLX/EXT Age/Sex: 71 / F ADM Date: 10/06/21 [email or web address] Other XR lumbar spine AP/LAT/FLX/EXT Loc: [facility] Room: Type: [facility] [email or web address] Other XR lumbar spine AP/LAT/FLX/EXT Attending Dr: Gunnar Fernandez DO [email or web address] Other XR lumbar spine AP/LAT/FLX/EXT Ordering Provider: Gunnar Fernandez DO [email or web address] Other XR lumbar spine AP/LAT/FLX/EXT Date of Service: 10/06/21 [email or web address] Other XR lumbar spine AP/LAT/FLX/EXT XR/XR lumbar spine AP/LAT/FLX/EXT: Lumbar pain [email or web address] Other XR lumbar spine AP/LAT/FLX/EXT Copies to: Gunnar Fernandez DO [email or web address] Other XR lumbar spine AP/LAT/FLX/EXT Lumbar spine 10/06/2021. [email or web address] Other XR lumbar spine AP/LAT/FLX/EXT CLINICAL DATA: Low back pain with radiation to the buttocks. [email or web address] Other XR lumbar spine AP/LAT/FLX/EXT FINDINGS: 4 standing views of the lumbar spine were obtained including lateral views in the [email or web address] Other XR lumbar spine AP/LAT/FLX/EXT neutral, flexion, and extension positions. [email or web address] Other XR lumbar spine AP/LAT/FLX/EXT There is grade 2 spondylolisthesis measuring 17 mm at L4-L5. There is grade 1 spondylolisthesis [email or web address] Other XR lumbar spine AP/LAT/FLX/EXT measuring 8 mm at the lumbosacral junction. There is mild anterior malalignment of L3 on L4. Overall [email or web address] Other XR lumbar spine AP/LAT/FLX/EXT vertebral alignment does not significantly change with flexion or extension. There are disc space [email or web address] Other XR lumbar spine AP/LAT/FLX/EXT narrowing and facet arthritis in the lower lumbar spine. [email or web address] Other XR lumbar spine AP/LAT/FLX/EXT XR/XR lumbar spine AP/LAT/FLX/EXT [email or web address] Other XR lumbar spine AP/LAT/FLX/EXT IMPRESSION: Multilevel spondylolisthesis. No instability with flexion or extension. Disc space [email or web address] Other XR lumbar spine AP/LAT/FLX/EXT Impression dictated by: Marin Haines Jr., M.D.10/06/2021 4:07 PM [email or web address] Other XR lumbar spine AP/LAT/FLX/EXT Dictation Location: [place] [address] [email or web address] Other XR lumbar spine AP/LAT/FLX/EXT Transcribed By: ROLF 10/06/21 1607 [email or web address] Other XR lumbar spine AP/LAT/FLX/EXT Dictated By: Marin Haines Jr, MD 10/06/21 1600 [email or web address] Other XR lumbar spine AP/LAT/FLX/EXT Signed By: [email or web address] Other XR lumbar spine AP/LAT/FLX/EXT 10/06/21 3809 [email or web address] Other BASIC METABOLIC PANELon 11-1 Calcium [Mass/Vol] 8.2 mg/dL Low 8.6-10.3 [facility] Comment on above: Order Comment: No: D o not add to previous draw Performed By: #### 0 0071 ####[facility] [facility] [place] [address], [facility] Chloride [Moles/Vol] 106 mmol/L Normal 98-107 [facility] Comment on above: Order Comment: No: D o not add to previous draw Performed By: #### 0 0071 ####[facility] [facility] [address], [facility] CO2 [Moles/Vol] 23 mmol/L Normal 21-31 [facility] Comment on above: Order Comment: No: D o not add to previous draw Performed By: #### 0 0071 ####[facility] [place] [address], [facility] Creatinine [Mass/Vol] 0.98 mg/dL Normal 0.60-1.20 [facility] Comment on above: Order Comment: No: D o not add to previous draw Performed By: #### 0 0071 ####[facility] [place] [address], [facility] eGFR- non- 56 ml/min/1.73sq m Abnormal >60 [facility] Comment on above: Order Comment: No: D o not add to previous draw Result Comment: Calc ulation may not be valid for patients over 70 years Performed By: #### 0 0071 ####[facility] [place] [address], [facility] GFR/1.73 sq M.predicted among blacks MDRD (S/P/Bld) [Vol rate/Area] mL/min/{1.73_m2} Normal >60 [facility] Comment on above: Order Comment: No: D o not add to previous draw Result Comment: Calc ulation may not be valid for patients over 70 years Performed By: #### 0 0071 ####[facility] [place] [address], [place] Glucose [Mass/Vol] 104 mg/dL High 70-100 [facility] Comment on above: Order Comment: No: D o not add to previous draw Performed By: #### 0 0071 ####[facility] [place] [address], [place] Potassium [Moles/Vol] 4.5 mmol/L Normal 3.5-5.1 [facility] Comment on above: Order Comment: No: D o not add to previous draw Performed By: #### 0 0071 ####[facility] [place] [address], [place] Sodium [Moles/Vol] 136 mmol/L Normal 136-145 [facility] Comment on above: Order Comment: No: D o not add to previous draw Performed By: #### 0 0071 ####[facility] [place] [address], [place] Urea nitrogen [Mass/Vol] 14 mg/dL Normal 7-25 [facility] Comment on above: Order Comment: No: D o not add to previous draw Performed By: #### 0 0071 ####[facility] [place] [address], [place] HEMATOCRITon 04-28-2021 Hematocrit (Bld) [Volume fraction] 27.6 % Low 36.0-45.0 [facility] Comment on above: Order Comment: No: D o not add to previous draw Performed By: #### 5 7307, [address] #### [facility] [address] [place] [address], [place] HEMOGLOBINon 11-17-2021 Hemoglobin (Bld) [Mass/Vol] 8.6 g/dL Low 12.0-15.0 [facility] Comment on above: Order Comment: No: D o not add to previous draw Performed By: #### 5 7307, [address] #### [id number] [place] [address] CHEST AND LATERALon 04-27-20 CHEST AND LATERAL [facility] Department of Radiology [address] [place] [id number] Patient Name: LINDA NASCIMENTO : 1950 Sex: F Age: Race: White Pt. Location: [id number] Patient Status: I Ordered Date: 04/27/2021 7:00:00 [...] leads. Electronically signed: Dwight Davila. Transcribed by: [email or web address], User Resident: Electronically Signed by: DWIGHT DAVILA @ 04/27/2021 10:35 AM Normal [facility] Comment on above: Order Comment: No: D o not add to previous draw BASIC METABOLIC PANELon 04-12 Calcium [Mass/Vol] 8.7 mg/dL Normal 8.6-10.3 [facility] Comment on above: Order Comment: No: D o not add to previous draw Performed By: #### 0 0071 ####[facility] Chloride [Moles/Vol] 103 mmol/L Normal 98-107 [facility] Comment on above: Order Comment: No: D o not add to previous draw Performed By: #### 0 0071 ####[facility] [place] [address], [facility] CO2 [Moles/Vol] 24 mmol/L Normal 21-31 [facility] Comment on above: Order Comment: No: D o not add to previous draw Performed By: #### 0 0071 ####[facility] [place] [address], [facility] Creatinine [Mass/Vol] 1.05 mg/dL Normal 0.60-1.20 [facility] Comment on above: Order Comment: No: D o not add to previous draw Performed By: #### 0 0071 ####[facility] eGFR- non- 51 ml/min/1.73sq m Abnormal >60 [facility] Comment on above: Order Comment: No: D o not add to previous draw Result Comment: Calc ulation may not be valid for patients over 70 years Performed By: #### 0 0071 ####[facility] [place] [address], [facility] GFR/1.73 sq M.predicted among blacks MDRD (S/P/Bld) [Vol rate/Area] mL/min/{1.73_m2} Normal >60 [facility] Comment on above: Order Comment: No: D o not add to previous draw Result Comment: Calc ulation may not be valid for patients over 70 years Performed By: #### 0 0071 ####[facility] [place] [address], [facility] Glucose [Mass/Vol] 107 mg/dL High 70-100 [facility] Comment on above: Order Comment: No: D o not add to previous draw Performed By: #### 0 0071 ####[facility] [place] [address], [facility] Potassium [Moles/Vol] 4.6 mmol/L Normal 3.5-5.1 [facility] Comment on above: Order Comment: No: D o not add to previous draw Performed By: #### 0 0071 ####[facility] [facility] [place] [address], [facility] Sodium [Moles/Vol] 134 mmol/L Low 136-145 [facility] Comment on above: Order Comment: No: D o not add to previous draw Performed By: #### 0 0071 ####[facility] [facility] [place] [address], [place] Urea nitrogen [Mass/Vol] 21 mg/dL Normal 7-25 [facility] Comment on above: Order Comment: No: D o not add to previous draw Performed By: #### 0 0071 ####[facility] [place] [address], [facility] CBC W/DIFFon 04-26-2021 ABS IMM GRANS 0.0 10*3/uL Normal 0.0-0.2 The [facility] Comment on above: Order Comment: No: D o not add to previous draw Performed By: #### 5 0103 #### [facility] [address] [place] [address], [facility] ABS NEUTROPHILS 4.8 10*3/uL Normal 1.6-7.6 [facility] Comment on above: Order Comment: No: D o not add to previous draw Performed By: #### 5 0103 #### [facility] [address] [facility] [place] [address], [facility] Basophils (Bld) [#/Vol] 0.0 10*3/uL Normal 0.0-0.2 [facility] Comment on above: Order Comment: No: D o not add to previous draw Performed By: #### 5 0103 #### [facility] [address] [place] [address], [facility] Basophils/100 WBC (Bld) 0.6 % Normal 0.0-1.0 [facility] Comment on above: Order Comment: No: D o not add to previous draw Performed By: #### 5 0103 #### [facility] [address] [facility] [address], [facility] Eosinophils (Bld) [#/Vol] 0.4 10*3/uL Normal 0.0-0.5 [facility] Comment on above: Order Comment: No: D o not add to previous draw Performed By: #### 5 0103 #### [facility] [address] [place] [id number], [facility] Eosinophils/100 WBC (Bld) 6.0 % Normal 0.0-6.0 [facility] Comment on above: Order Comment: No: D o not add to previous draw Performed By: #### 5 0103 #### [facility] [address] [place] [address], [facility] Erythrocyte distribution width (RBC) [Ratio] 13.1 % Normal 11.5-15.0 [facility] Comment on above: Order Comment: No: D o not add to previous draw Performed By: #### 5 0103 #### [facility] [address] [place] [address], [facility] Hematocrit (Bld) [Volume fraction] 27.8 % Low 36.0-45.0 [facility] Comment on above: Order Comment: No: D o not add to previous draw Performed By: #### 5 0103 #### [facility] [address] [place] [address], [facility] Hemoglobin (Bld) [Mass/Vol] 9.0 g/dL Low 12.0-15.0 [facility] Comment on above: Order Comment: No: D o not add to previous draw Performed By: #### 5 0103 #### [facility] [address] [facility] [place] [address], [facility] IMMATURE GRANS 0.3 % Normal 0.0-1.0 [facility] Comment on above: Order Comment: No: D o not add to previous draw Performed By: #### 5 0103 #### [facility] [address] [facility] [place] [address], [facility] Lymphocytes (Bld) [#/Vol] 0.7 10*3/uL Low 1.2-4.0 [facility] Comment on above: Order Comment: No: D o not add to previous draw Performed By: #### 5 0103 #### [facility] [address] [place] [address], [facility] Lymphocytes/100 WBC (Bld) 9.8 % Low 20.0-45.0 [facility] Comment on above: Order Comment: No: D o not add to previous draw Performed By: #### 5 0103 #### [facility] [address] [place] [address], [facility] MCH (RBC) [Entitic mass] 33.5 pg High 27.0-33.0 [facility] Comment on above: Order Comment: No: D o not add to previous draw Performed By: #### 5 0103 #### [facility] [address] [place] [address], [facility] MCHC (RBC) [Mass/Vol] 32.4 g/dL Normal 32.0-35.0 [facility] Comment on above: Order Comment: No: D o not add to previous draw Performed By: #### 5 0103 #### [facility] [address] [place] [address], [facility] MCV (RBC) [Entitic vol] 103.3 fL High 82.0-98.0 [facility] Comment on above: Order Comment: No: D o not add to previous draw Performed By: #### 5 0103 #### [facility] [address] [facility] [place] [address], [facility] Monocytes (Bld) [#/Vol] 0.7 10*3/uL Normal 0.1-1.0 [facility] Comment on above: Order Comment: No: D o not add to previous draw Performed By: #### 5 0103 #### [facility] [address] [facility] [place] [address], [facility] MONOS 10.4 % Normal 5.0-12.0 [facility] Comment on above: Order Comment: No: D o not add to previous draw Performed By: #### 5 0103 #### [facility] [address] [facility] [place] [address], [facility] Neutrophils/100 WBC (Bld) 72.9 % High 40.0-72.0 [facility] Comment on above: Order Comment: No: D o not add to previous draw Performed By: #### 5 0103 #### [facility] [address] [facility] [place] [address], [facility] Nucleated RBC/100 WBC (Bld) [Ratio] 0 % Normal 0-0 [facility] Comment on above: Order Comment: No: D o not add to previous draw Performed By: #### 5 0103 #### [facility] [address] [place] [address], [facility] PLAT CNT 213 10*3/uL Normal 150-400 [facility] Comment on above: Order Comment: No: D o not add to previous draw Performed By: #### 5 0103 #### [facility] [address] [place] [address], [facility] RBC (Bld) [#/Vol] 2.69 10*6/uL Low 3.80-5.00 [facility] Comment on above: Order Comment: No: D o not add to previous draw Performed By: #### 5 0103 #### [facility] [address] [place] [address], [facility] WBC (Bld) [#/Vol] 6.62 10*3/uL Normal 4.00-10.60 [facility] Comment on above: Order Comment: No: D o not add to previous draw Performed By: #### 5 0103 #### [facility] [address] Cardiovascular Lab Reporton 04-26-2021 Cardiovascular Lab Report [facility] Patient Name: Nascimento [facility] L MR #: [id number] Department of Physician: Enoch Frankel MD Medicine Service Date: 04/26/2021 Division of Birthdate: 1950 Cardiology Room #: 3CD [id number] Adult Cardiovascular Services [facility] [address] [place] [address] Cardiovascular Laboratory Report PACEMAKER IMPLANT PROCEDURE NOTE [...] using modified seldinger technique using a 5 Norwegian micro-puncture needle on two occasions and 0.35 wires were placed. Local infiltration of 1% Lidocaine was performed, and an incision was created in the left upper chest. Dissection was then performed using cautery down to the fascial plane above the muscle and a small pocket was created for the device. 6 Norwegian Safesheaths were placed over the wire. An active fixation [employer] pacing lead was then delivered through the 6Fsheath to the right ventricle. After confirmation of lead position on orthogonal views (GONZALES and MOLDOVAN) to confirm septal position, the screw was activated, and the lead was placed in the right ventricular mid cavity towards the septum. After confirmation of good sensing parameters, injury pattern and pacing thresholds, 10V pacing was done and no diaphragmatic stimulation was noted. It was then secured in the pocket using three 1-0 Silk sutures. Then an active fixation [employer] lead was delivered through the 6Fsheath to the right atrial appendage. After confirmation of lead position on orthogonal views (GONZALES and MOLDOVAN), the screw was activated. RA lead was [...] Device info: [employer] Edora Model# 8DRT Serial# [id number] RA lead: Model# [employer] Solia S53 Serial# [id number] Sensin.9mV Threshold: 1.1V@0.5ms Impedance: 429 Ohms RV lead: Model (more content not included)... Normal [facility] BASIC METABOLIC PANELon 11- Calcium [Mass/Vol] 8.6 mg/dL Normal 8.6-10.3 [facility] Comment on above: Order Comment: No: D o not add to previous draw Performed By: #### 0 0071 ####[facility] [place] [address], [facility] Chloride [Moles/Vol] 101 mmol/L Normal 98-107 [facility] Comment on above: Order Comment: No: D o not add to previous draw Performed By: #### 0 0071 ####[facility] [facility] [place] [address], [facility] CO2 [Moles/Vol] 24 mmol/L Normal 21-31 [facility] Comment on above: Order Comment: No: D o not add to previous draw Performed By: #### 0 0071 ####[facility] [facility] [address], [facility] Creatinine [Mass/Vol] 1.36 mg/dL High 0.60-1.20 [facility] Comment on above: Order Comment: No: D o not add to previous draw Performed By: #### 0 0071 ####[facility] [place] [facility] [place] [address], [facility] eGFR- 46 ml/min/1.73sq m Abnormal >60 [facility] Comment on above: Order Comment: No: D o not add to previous draw Result Comment: Calc ulation may not be valid for patients over 70 years Performed By: #### 0 0071 ####[facility] [place] [facility] [place] [address], [facility] eGFR- non- 39 ml/min/1.73sq m Abnormal >60 [facility] Comment on above: Order Comment: No: D o not add to previous draw Result Comment: Calc ulation may not be valid for patients over 70 years Performed By: #### 0 0071 ####[facility] [place] [facility].[place] [id number], [facility] Glucose [Mass/Vol] 98 mg/dL Normal 70-100 [facility] Comment on above: Order Comment: No: D o not add to previous draw Performed By: #### 0 0071 ####[facility] [place] [place] [address], [facility] Potassium [Moles/Vol] 4.4 mmol/L Normal 3.5-5.1 [facility] Comment on above: Order Comment: No: D o not add to previous draw Performed By: #### 0 0071 ####[facility] [place] [place] [address], [facility] Sodium [Moles/Vol] 132 mmol/L Low 136-145 [facility] Comment on above: Order Comment: No: D o not add to previous draw Performed By: #### 0 0071 ####[facility] [place] [facility] [place] [place] [address], [facility] Urea nitrogen [Mass/Vol] 22 mg/dL Normal 7-25 [facility] Comment on above: Order Comment: No: D o not add to previous draw Performed By: #### 0 0071 ####[facility] [place] [place] [address], [facility] HEMATOCRITon 04-25-2021 Hematocrit (Bld) [Volume fraction] 28.3 % Low 36.0-45.0 [facility] Comment on above: Order Comment: No: D o not add to previous draw Performed By: #### 5 7307, 75528 #### [facility] [place] [address] [place] [address], [place] HEMOGLOBINon 04-25-2021 Hemoglobin (Bld) [Mass/Vol] 9.0 g/dL Low 12.0-15.0 [facility] Comment on above: Order Comment: No: D o not add to previous draw Performed By: #### 9 5487, 44198 #### [facility] [place] [address] [place] [address], [place] BASIC METABOLIC PANELon 11- Calcium [Mass/Vol] 8.8 mg/dL Normal 8.6-10.3 [facility] Comment on above: Order Comment: No: D o not add to previous draw Performed By: #### 1 69, 15531 ####[facility] [place] [id number], [facility] Chloride [Moles/Vol] 101 mmol/L Normal 98-107 [facility] Comment on above: Order Comment: No: D o not add to previous draw Performed By: #### 1 69, 23980 ####[facility] [place] [place] [address], [facility] CO2 [Moles/Vol] 26 mmol/L Normal 21-31 [facility] Comment on above: Order Comment: No: D o not add to previous draw Performed By: #### 1 69, 05906 ####[facility] [place] [facility] [place] [place] [address], [facility] Creatinine [Mass/Vol] 1.17 mg/dL Normal 0.60-1.20 [facility] Comment on above: Order Comment: No: D o not add to previous draw Performed By: #### 1 69, 59127 ####[facility] [place] [facility] eGFR- 55 ml/min/1.73sq m Abnormal >60 [facility] Comment on above: Order Comment: No: D o not add to previous draw Result Comment: Calc ulation may not be valid for patients over 70 years Performed By: #### 1 69, 04513 ####[facility] [place] [place] [address], [facility] eGFR- non- 45 ml/min/1.73sq m Abnormal >60 [facility] Comment on above: Order Comment: No: D o not add to previous draw Result Comment: Calc ulation may not be valid for patients over 70 years Performed By: #### 1 69, 95902 ####[facility] [place] [place] [address], [facility] Glucose [Mass/Vol] 102 mg/dL High 70-100 [facility] Comment on above: Order Comment: No: D o not add to previous draw Performed By: #### 1 69, 32277 ####[facility] [place] [facility] [place] [address], [facility] Potassium [Moles/Vol] 4.5 mmol/L Normal 3.5-5.1 [facility] Comment on above: Order Comment: No: D o not add to previous draw Performed By: #### 1 69, 42944 ####[facility] [place] [place] [address], [facility] Sodium [Moles/Vol] 133 mmol/L Low 136-145 [facility] Comment on above: Order Comment: No: D o not add to previous draw Performed By: #### 1 69, 41994 ####[facility] [place] [place] [address], [facility] Urea nitrogen [Mass/Vol] 20 mg/dL Normal 7-25 [facility] Comment on above: Order Comment: No: D o not add to previous draw Performed By: #### 1 69, 75874 ####[facility] [place] [place] [address], [facility] HEMOGLOBINon 04-24-2021 Hemoglobin (Bld) [Mass/Vol] 10.0 g/dL Low 12.0-15.0 [facility] Comment on above: Order Comment: Yes: Add to Previous draw if able NEEDS DRAWN. NO LAV TUBE FROM AM LABS Performed By: #### 9 2089 #### [facility] [place] [address] [facility]. [place] [id number], [facility] MAGNESIUM BLOODon 04-24-2021 Magnesium [Mass/Vol] 2.1 mg/dL Normal 1.9-2.7 [facility] Comment on above: Order Comment: No: D o not add to previous draw Performed By: #### 1 0, 66140 ####[facility] [place] [facility] [place] [address], [facility] BASIC METABOLIC PANELon 11-1 Calcium [Mass/Vol] 8.4 mg/dL Low 8.6-10.3 [facility] Comment on above: Order Comment: Unkno wn Performed By: #### 1 0070, 82380, 48493 ####[facility] [place] [place] [address], [facility] Chloride [Moles/Vol] 100 mmol/L Normal 98-107 [facility] Comment on above: Order Comment: Unkno wn Performed By: #### 1 0, 91475, 27364 ####[facility] [place] [place] [address], [facility] CO2 [Moles/Vol] 25 mmol/L Normal 21-31 [facility] Comment on above: Order Comment: Unkno wn Performed By: #### 1 0, 81212, 02190 ####[facility] [place] [facility] [place] [place] [address], [facility] Creatinine [Mass/Vol] 1.30 mg/dL High 0.60-1.20 [facility] Comment on above: Order Comment: Unkno wn Performed By: #### 1 0, 60894, 11376 ####[facility] [place] [facility].[address] eGFR- 49 ml/min/1.73sq m Abnormal >60 [facility] Comment on above: Order Comment: Unkno wn Result Comment: Calc ulation may not be valid for patients over 70 years Performed By: #### 1 0070, 91838, 44265 ####[facility] [place] [place] [address], [facility] eGFR- non- 40 ml/min/1.73sq m Abnormal >60 [facility] Comment on above: Order Comment: Unkno wn Result Comment: Calc ulation may not be valid for patients over 70 years Performed By: #### 1 0070, 64588, 26753 ####[facility] [place] [facility] [address], [facility] Glucose [Mass/Vol] 93 mg/dL Normal 70-100 [facility] Comment on above: Order Comment: Unkno wn Performed By: #### 1 0070, 51219, 13226 ####[facility] [place] [place] [address], [facility] Potassium [Moles/Vol] 4.1 mmol/L Normal 3.5-5.1 [facility] Comment on above: Order Comment: Unkno wn Performed By: #### 1 0, 56332, 67203 ####[facility] [place] Sodium [Moles/Vol] 133 mmol/L Low 136-145 [facility] Comment on above: Order Comment: Unkno wn Performed By: #### 1 0, 71669, 00742 ####[facility] [place] Urea nitrogen [Mass/Vol] 20 mg/dL Normal 7-25 [facility] Comment on above: Order Comment: Unkno wn Performed By: #### 1 0, 03995, 37545 ####[facility] [place] [place] [address], [facility] CBC W/DIFFon 04-23-2021 ABS IMM GRANS 0.1 10*3/uL Normal 0.0-0.2 The [facility] Comment on above: Order Comment: Unkno wn Performed By: #### 5 0103 #### [facility] [place] [address] [place] [address], [facility] ABS NEUTROPHILS 7.8 10*3/uL High 1.6-7.6 The [facility] Comment on above: Order Comment: Unkno wn Performed By: #### 5 0103 #### [facility] [place] [address] [place] [address], [facility] Basophils (Bld) [#/Vol] 0.1 10*3/uL Normal 0.0-0.2 [facility] Comment on above: Order Comment: Unkno wn Performed By: #### 5 0103 #### [facility] [place] [address] [place] [address], [facility] Basophils/100 WBC (Bld) 0.5 % Normal 0.0-1.0 [facility] Comment on above: Order Comment: Unkno wn Performed By: #### 5 3 #### [facility] [place] [address] [place] [address], [facility] Eosinophils (Bld) [#/Vol] 0.4 10*3/uL Normal 0.0-0.5 [facility] Comment on above: Order Comment: Unkno wn Performed By: #### 5 102 #### [facility] [place] [address] [place] [address], [facility] Eosinophils/100 WBC (Bld) 3.5 % Normal 0.0-6.0 [facility] Comment on above: Order Comment: Unkno wn Performed By: #### 5 102 #### [facility] [place] [address] [place] [address], [facility] Erythrocyte distribution width (RBC) [Ratio] 13.2 % Normal 11.5-15.0 [facility] Comment on above: Order Comment: Unkno wn Performed By: #### 5 3 #### [facility] [place] [address] [place] [address], [facility] Hematocrit (Bld) [Volume fraction] 29.2 % Low 36.0-45.0 [facility] Comment on above: Order Comment: Unkno wn Performed By: #### 5 3 #### [facility] [place] [address] [facility] [place] [address], [facility] Hemoglobin (Bld) [Mass/Vol] 9.3 g/dL Low 12.0-15.0 [facility] Comment on above: Order Comment: Unkno wn Performed By: #### 5 0103 #### [facility] [place] [address] [place] [address], [facility] IMMATURE GRANS 0.6 % Normal 0.0-1.0 The [facility] v[facility] Comment on above: Order Comment: Unkno wn Performed By: #### 5 0103 #### [facility] [place] [address] [place] [address], [facility] Lymphocytes (Bld) [#/Vol] 0.7 10*3/uL Low 1.2-4.0 [facility] Comment on above: Order Comment: Unkno wn Performed By: #### 5 3 #### [facility] [place] [address] [place] [address], [facility] Lymphocytes/100 WBC (Bld) 6.8 % Low 20.0-45.0 [facility] Comment on above: Order Comment: Unkno wn Performed By: #### 5 0103 #### [facility] [place] [address] [place] [address], [facility] MCH (RBC) [Entitic mass] 33.5 pg High 27.0-33.0 [facility] Comment on above: Order Comment: Unkno wn Performed By: #### 5 0103 #### [facility] [place] [address] [place] [address], [facility] MCHC (RBC) [Mass/Vol] 31.8 g/dL Low 32.0-35.0 [facility] Comment on above: Order Comment: Unkno wn Performed By: #### 5 3 #### [facility] [place] [address] [facility] [place] [address], [facility] MCV (RBC) [Entitic vol] 105.0 fL High 82.0-98.0 [facility] Comment on above: Order Comment: Unkno wn Performed By: #### 5 0103 #### [facility] [place] [address] [place] [address], [facility] Monocytes (Bld) [#/Vol] 1.0 10*3/uL Normal 0.1-1.0 [facility] Comment on above: Order Comment: Unkno wn Performed By: #### 5 0103 #### [facility] [place] [address] [place] [address], [facility] MONOS 10.0 % Normal 5.0-12.0 [facility] Comment on above: Order Comment: Unkno wn Performed By: #### 5 3 #### [facility] [place] [address] [place] [address], [facility] Neutrophils/100 WBC (Bld) 78.6 % High 40.0-72.0 [facility] Comment on above: Order Comment: Unkno wn Performed By: #### 5 3 #### [facility] [place] [address] [place] [address], [facility] Nucleated RBC/100 WBC (Bld) [Ratio] 0 % Normal 0-0 [facility] Comment on above: Order Comment: Unkno wn Performed By: #### 5 3 #### [facility] [place] [address] [place] [address], [facility] PLAT CNT 227 10*3/uL Normal 150-400 [facility] Comment on above: Order Comment: Unkno wn Performed By: #### 5 3 #### [facility] [place] [address] [place] [address], [facility] RBC (Bld) [#/Vol] 2.78 10*6/uL Low 3.80-5.00 The [facility] Comment on above: Order Comment: Unkno wn Performed By: #### 5 102 #### [facility] [place] [address] WBC (Bld) [#/Vol] 9.87 10*3/uL Normal 4.00-10.60 [facility] Comment on above: Order Comment: Unkno wn Performed By: #### 5 0103 #### [facility] [place] [address] [place] [address], [facility] MAGNESIUM BLOODon 04-23-2021 Magnesium [Mass/Vol] 2.1 mg/dL Normal 1.9-2.7 [facility] Comment on above: Order Comment: Unkno wn Performed By: #### 1 0070, 10027, 40428 ####[facility] [place] [place] [address], [facility] PHOSPHORUS BLOODon Phosphate [Mass/Vol] 2.8 mg/dL Normal 2.5-5.0 [facility] Comment on above: Order Comment: Unkno wn Performed By: #### 1 0070, 13589, 39590 ####[facility] [place] APTTon 04-22-2021 aPTT Coag (Bld) [Time] 27.6 s Normal 25.0-35.0 [facility] Comment on above: Order Comment: No: [...] THIS PURPOSE. Performed By: #### 5 7307, 11474 #### [facility] [place] [address] [place] [address], [facility] BASIC METABOLIC PANELon 04-12 Calcium [Mass/Vol] 8.8 mg/dL Normal 8.6-10.3 [facility] Comment on above: Order Comment: No: D o not add to previous draw Performed By: #### 4 1000, 23986, 04573, 78173 ####[facility] [place] [place] [address], [facility] Chloride [Moles/Vol] 99 mmol/L Normal 98-107 [facility] Comment on above: Order Comment: No: D o not add to previous draw Performed By: #### 4 1000, 71060, 99200, 51135 ####[facility] [place] [facility] [place] [address], [facility] CO2 [Moles/Vol] 27 mmol/L Normal 21-31 The [facility] Comment on above: Order Comment: No: D o not add to previous draw Performed By: #### 4 1000, 87640, 20230, 23889 ####[facility] [place] [place] [address], [facility] Creatinine [Mass/Vol] 1.39 mg/dL High 0.60-1.20 [facility] Comment on above: Order Comment: No: D o not add to previous draw Performed By: #### 4 1000, 80380, 01766, 55975 ####[facility] [place] eGFR- 45 ml/min/1.73sq m Abnormal >60 [facility] Comment on above: Order Comment: No: D o not add to previous draw Result Comment: Calc ulation may not be valid for patients over 70 years Performed By: #### 4 1000, 06434, 05201, 03855 ####[facility] [place] [facility].[address] eGFR- non- 37 ml/min/1.73sq m Abnormal >60 [facility] Comment on above: Order Comment: No: D o not add to previous draw Result Comment: Calc ulation may not be valid for patients over 70 years Performed By: #### 4 1000, 67933, 23585, 76854 ####[facility] [place] [facility] [place] [place] [address], [facility] Glucose [Mass/Vol] 91 mg/dL Normal 70-100 [facility] Comment on above: Order Comment: No: D o not add to previous draw Performed By: #### 4 1000, 99330, 42022, 33609 ####[facility] [place] [place] [address], [facility] Potassium [Moles/Vol] 4.4 mmol/L Normal 3.5-5.1 [facility] Comment on above: Order Comment: No: D o not add to previous draw Performed By: #### 4 1000, 78459, 43053, 32528 ####[facility] [place] [place] [address], [facility] Sodium [Moles/Vol] 133 mmol/L Low 136-145 [facility] Comment on above: Order Comment: No: D o not add to previous draw Performed By: #### 4 1000, 15294, 19780, 09289 ####[facility] [place] [facility].[address] Urea nitrogen [Mass/Vol] 24 mg/dL Normal 7-25 [facility] Comment on above: Order Comment: No: D o not add to previous draw Performed By: #### 4 1000, 09940, 21876, 04346 ####[facility] [place] [place] [address], [facility] CBC W/DIFFon 04-22-2021 ABS IMM GRANS 0.0 10*3/uL Normal 0.0-0.2 The [facility] Comment on above: Performed By: #### 5 0103 #### [facility] [place] [address] [place] [address], [facility] ABS NEUTROPHILS 5.8 10*3/uL Normal 1.6-7.6 The [facility] Comment on above: Performed By: #### 5 0103 #### [facility] [place] [address] [place] [address], [facility] Basophils (Bld) [#/Vol] 0.1 10*3/uL Normal 0.0-0.2 [facility] Comment on above: Performed By: #### 5 3 #### [facility] [place] [address] [place] [address], [facility] Basophils/100 WBC (Bld) 0.6 % Normal 0.0-1.0 [facility] Comment on above: Performed By: #### 3 #### [facility] [place] [address] [facility] [place] [address], [facility] Eosinophils (Bld) [#/Vol] 0.2 10*3/uL Normal 0.0-0.5 [facility] Comment on above: Performed By: #### 102 #### [facility] [place] [address] [place] [address], [facility] Eosinophils/100 WBC (Bld) 2.7 % Normal 0.0-6.0 [facility] Comment on above: Performed By: #### 3 #### [facility] [place] [address] [facility]. [address] Erythrocyte distribution width (RBC) [Ratio] 13.0 % Normal 11.5-15.0 [facility] Comment on above: Performed By: #### 3 #### [facility] [place] [address] [facility] [place] [address], [facility] Hematocrit (Bld) [Volume fraction] 29.2 % Low 36.0-45.0 [facility] Comment on above: Performed By: #### 3 #### [facility] [place] [address] [place] [address], [facility] Hemoglobin (Bld) [Mass/Vol] 9.6 g/dL Low 12.0-15.0 [facility] Comment on above: Performed By: #### 5 0103 #### [facility] [place] [address] IMMATURE GRANS 0.5 % Normal 0.0-1.[address] [facility] Comment on above: Performed By: #### 102 #### [facility] [place] [address] [place] [address], [facility] Lymphocytes (Bld) [#/Vol] 1.1 10*3/uL Low 1.2-4.0 [facility] Comment on above: Performed By: #### 102 #### [facility] [place] [address] Lymphocytes/100 WBC (Bld) 13.4 % Low 20.0-45.0 [facility] Comment on above: Performed By: #### 102 #### [facility] [place] [address] MCH (RBC) [Entitic mass] 33.1 pg High 27.0-33.0 [facility] Comment on above: Performed By: #### 102 #### [facility] [place] [address] MCHC (RBC) [Mass/Vol] 32.9 g/dL Normal 32.0-35.0 [facility] Comment on above: Performed By: #### 3 #### [facility] [place] [address] MCV (RBC) [Entitic vol] 100.7 fL High 82.0-98.0 [facility] Comment on above: Performed By: #### 5 102 #### [facility] [place] [address] [place] [address], [facility] Monocytes (Bld) [#/Vol] 0.7 10*3/uL Normal 0.1-1.0 [facility] Comment on above: Performed By: #### 5 0103 #### [facility] [place] [address] [place] [id number], [facility] MONOS 9.1 % Normal 5.0-12.0 [facility] Comment on above: Performed By: #### 5 3 #### [facility] [place] [address] [place] [id number], [facility] Neutrophils/100 WBC (Bld) 73.7 % High 40.0-72.0 [facility] Comment on above: Performed By: #### 5 102 #### [facility] [facility] [place] [facility] [place] [id number], [facility] Nucleated RBC/100 WBC (Bld) [Ratio] 0 % Normal 0-0 [facility] Comment on above: Performed By: #### 5 102 #### [facility] [place] [address] [facility] [place] [address], [facility] PLAT CNT 234 10*3/uL Normal 150-400 [facility] Comment on above: Performed By: #### 5 3 #### [facility] [place] [address] [place] [address], [facility] RBC (Bld) [#/Vol] 2.90 10*6/uL Low 3.80-5.00 [facility] Comment on above: Performed By: #### 5 3 #### [facility] [place] [address] [facility]. [place] [id number], [facility] WBC (Bld) [#/Vol] 7.81 10*3/uL Normal 4.00-10.60 [facility] Comment on above: Performed By: #### 5 3 #### [facility] [place] [address] [facility] [place] [address], [facility] FERRITINon 04-22-2021 Ferritin [Mass/Vol] 74 ng/mL Normal 11-307 [facility] Comment on above: Order Comment: No: D o not add to previous draw Performed By: #### 8 4044, 44029, 94084, 04730, 13114, 31911 ####[facility] [place] [address] FOLATE SERUMon 04-22-2021 SERUM FOLATE 29.00 ng/mL Normal 6.60-1000.00 [facility] Comment on above: Order Comment: No: D o not add to previous draw Result Comment: Norm al range reflects World Health Organization International Standard Performed By: #### 8 4044, 49317, 20338, 09338, 90738, 64813 ####[facility] [place] [address] HAPTOGLOBINon 04-22-2021 HAPTOGLOBIN 302 mg/dL High 26-164 [facility] Comment on above: Order Comment: No: D o not add to previous draw Performed By: #### 3 0103 #### [facility] [place] [address] KNEE LEFT 1 OR 2 VWSon 04-22 KNEE LEFT 1 OR 2 VWS [facility] Department of Radiology [address] [place], [place] [id number] Patient Name: LINDA NASCIMENTO : 1950 Sex: F Age: Race: White Pt. Location: [id number] Patient Status: I Ordered Date: 04/22/2021 2:30:00 AM Completed Date: 04/22/2021 02:52 AM Requesting Provider: GUNNAR CHRISTIANSON Attending Provider: ROBERTA VELA Report Copy To: Signs & Symptoms: Pain ( specify Location) History: See Comments Comments: evaluate for FX Exam: KNEE LEFT 1 OR 2 VWS KNEE LEFT 1 OR 2 [facility] 04/22/2021 2:52 AM CLINICAL INDICATIONS: Pain [...] report. Electronically signed: Boris Jara. Transcribed by: [email or web address], User Resident: NITHIN GARAY Electronically Signed by: BORIS JARA @ 04/22/2021 03:09 AM I personally read this/these film(s) with this resident Normal [facility] Comment on above: Order Comment: No: D o not add to previous draw KNEE RIGHT 1 OR 2 [facility] 04-12 KNEE RIGHT 1 OR 2 [facility] Department of Radiology [address] [place] [id number] Patient Name: LINDA NASCIMENTO : 1950 Sex: F Age: Race: White Pt. Location: [id number] Patient Status: I Ordered Date: 04/22/2021 2:30:00 AM Completed Date: 04/22/2021 02:52 AM Requesting Provider: GUNNAR CHRISTIANSON Attending Provider: ROBERTA VELA Report Copy To: Signs & Symptoms: Pain ( specify Location) History: See Comments Comments: evaluate for FX Exam: KNEE RIGHT 1 OR 2 VWS KNEE RIGHT 1 OR 2 VWS 04/22/2021 2:52 AM [...] report. Electronically signed: Boris Jara. Transcribed by: [email or web address], User Resident: NITHIN GARAY Electronically Signed by: BORIS JARA @ 04/22/2021 03:09 AM I personally read this/these film(s) with this resident Normal [facility] Comment on above: Order Comment: No: D o not add to previous draw LDH BLOODon 04-22-2021 LDH 232 Units/L Normal 140-271 [facility] Comment on above: Order Comment: No: D o not add to previous draw Performed By: #### 8 4044, 25126, 46125, 40645, 83477, 87132 ####[facility] [place] [place] [address], [place] LIVER BATTERYon 04-22-2021 Albumin [Mass/Vol] 3.9 g/dL Normal 3.5-5.7 [facility] Comment on above: Order Comment: No: D o not add to previous draw Performed By: #### 5 7307, 08041 #### [facility] [place] [address] [place] [address], [place] ALKALINE PHOSPH 74 IU/L Normal 34-104 [facility] Comment on above: Order Comment: No: D o not add to previous draw Performed By: #### 5 7307, 37390 #### [facility] [place] [address] [place] [address], [place] ALT [Catalytic activity/Vol] 9 U/L Normal 7-52 [facility] Comment on above: Order Comment: No: D o not add to previous draw Performed By: #### 5 73, 99434 #### [facility] [place] [address] [place] [address], [place] AST [Catalytic activity/Vol] 19 U/L Normal 13-39 [facility] Comment on above: Order Comment: No: D o not add to previous draw Performed By: #### 5 7307, 39255 #### [facility] [place] [address] [place] [address], [place] Bilirubin [Mass/Vol] 0.5 mg/dL Normal 0.3-1.0 [facility] Comment on above: Order Comment: No: D o not add to previous draw Performed By: #### 5 7307, 52916 #### [facility] [place] [address] [place] [address], [place] Bilirubin.direct [Mass/Vol] 0.1 mg/dL Normal 0.0-0.2 [facility] Comment on above: Order Comment: No: D o not add to previous draw Performed By: #### 5 7307, 85447 #### [facility] [place] [address] [place] [address], [facility] Protein [Mass/Vol] 6.5 g/dL Normal 6.0-8.3 [facility] Comment on above: Order Comment: No: D o not add to previous draw Performed By: #### 5 7307, 19294 #### [facility] [place] [address] [place] [address], [facility] MAGNESIUM BLOODon 04-22-2021 Magnesium [Mass/Vol] 2.0 mg/dL Normal 1.9-2.7 [facility] Comment on above: Order Comment: No: D o not add to previous draw Performed By: #### 4 1000, 93811, 39027, 72715 ####[facility] [place] [place] [address], [facility] PERIPHERAL SMEARon Nucleated RBC/100 WBC (Bld) [Ratio] 0 % Normal 0-0 [facility] Comment on above: Order Comment: No: D o not add to previous draw Performed By: #### 5 7307, 66522 #### [facility] [place] [address] [place] [address], [facility] OTHER PS1 Macrocytic anemia with no significant RBC morphology. Normal [facility] Comment on above: Order Comment: No: D o not add to previous draw Performed By: #### 5 7307, 26549 #### [facility] [place] [address] [place] [address], [facility] OTHER PS2 Check serum B12 and folate. Normal [facility] Comment on above: Order Comment: No: D o not add to previous draw Performed By: #### 5 7307, 37367 #### [facility] [place] [address] [place] [address], [facility] OTHER PS3 Otherwise unremarkable leukocytes and platelets. Normal [facility] Comment on above: Order Comment: No: D o not add to previous draw Performed By: #### 5 7307, 53005 #### [facility] [place] [address] OTHER PS4 Normal [facility] Comment on above: Order Comment: No: D o not add to previous draw Result Comment: Chec ked by Mayra Encinas M.D. Performed By: #### 5 7307, 50572 #### [facility] [place] [address] [place] [address], [facility] PHOSPHORUS BLOODon 1 Phosphate [Mass/Vol] 3.4 mg/dL Normal 2.5-5.0 [facility] Comment on above: Order Comment: No: D o not add to previous draw Performed By: #### 5 7307, 40888 #### [facility] [place] [address] PROTHROMBIN TIMEon 1 INR Coag (PPP) [Relative time] 1.01 {INR} Normal 0.91-1.16 [facility] Comment on above: Order Comment: No: [...] CHEST 1995;108:231S-246S. Performed By: #### 5 7307, 19175 #### [facility] [place] [address] PT Coag (PPP) [Time] 13.3 s Normal 12.3-14.8 [facility] Comment on above: Order Comment: No: D o not add to previous draw Result Comment: ALL RESULTS MUST BE INTERPRETED WITH RESPECT TO BLOOD DRAWING ARTIFACT OR DILUTION ERROR OF ANTICOAGULANT AT THE TIME OF SAMPLING. Performed By: #### 5 7307, 78812 #### [facility] [place] [address] [facility]. [address] RETICULOCYTE PANELon 021 ABSOLUTE RETICULOCYTE 0.0711 10*6/uL Normal 0.0250-0.1000 [facility] Comment on above: Order Comment: No: D o not add to previous draw Performed By: #### 5 7307, 46023 #### [facility] [place] [address] IMMATURE RETICULOCYTE FRACTION 12.8 % Normal 2.0-16.0 [facility] Comment on above: Order Comment: No: D o not add to previous draw Performed By: #### 5 7307, 04443 #### [facility] [place] [address] [facility]. [address] RETIC COUNT 2.37 % High 0.50-1.80 [facility] Comment on above: Order Comment: No: D o not add to previous draw Performed By: #### 5 7307, 42715 #### [facility] [place] [address] [facility]. [address] RETICULOCYTE HEMOGLOBIN 37.5 pg High 28.0-36.0 [facility] Comment on above: Order Comment: No: D o not add to previous draw Performed By: #### 5 7307, 78739 #### [facility] [place] [address] [facility] [address] TIBC- INCLUDES IRONon 2020 FE SATURATION 16 % Low 20-50 The [facility] Comment on above: Order Comment: No: D o not add to previous draw Performed By: #### 8 4044, 02852, 16701, 94174, 06194, 99251 ####[facility] [place] Iron [Mass/Vol] 54 ug/dL Normal 50-212 [facility] Comment on above: Order Comment: No: D o not add to previous draw Performed By: #### 8 4044, 96712, 76505, 40850, 68713, 27486 ####[facility] [place] TIBC 332 mcg/dL Normal 250-450 [facility] Comment on above: Order Comment: No: D o not add to previous draw Performed By: #### 8 4044, 19350, 83966, 66305, 19040, 96836 ####[facility] [place] [facility] UIBC 278 mcg/dL Normal 155-355 [facility] Comment on above: Order Comment: No: D o not add to previous draw Performed By: #### 8 4044, 45224, 86162, 31149, 13613, 35104 ####[facility] [place] [facility] TSH3 WITH REFLEX FT4on 04-22 TSH 3RD GENERATION 1.72 uIU/mL Normal 0.34-5.60 [facility] Comment on above: Performed By: #### 8 4044, 50072, 25572, 92940, 51456, 88541 ####[facility] [place] [facility] VITAMIN B12on 04-22-2021 Cobalamin (Vitamin B12) [Mass/Vol] 771 pg/mL Normal 180-914 [facility] Comment on above: Order Comment: No: D o not add to previous drawPt using restroom Result Comment: REFE RENCE RANGES: 180-914 pg/mL Normal 145-179 pg/mL Indeterminate <145 pg/mL Deficient Performed By: #### 8 4044, 86294, 16290, 78000, 14043, 43590 ####[facility] [place] Vital Signs Date Time Vital Sign Value Performing Clinician Faci lity 10-06-2021 14:00-0400 Body height 165.1 cm Gunnar Fernandez Other [email or web address] Other 10-06-2021 14:00-0400 Body mass index (BMI) [Ratio] 40.77 kg/m2 Gunnar Fernandez Other [email or web address] Other 10-06-2021 14:00-0400 Body weight 111.13 kg Gunnar Fernandez Other [email or web address] Other Encounters Encounter Date Encounter Type Care Provider Facility Start: 05-21-2024 End: 05-21-2024 ambulatory [facility] Start: 10-31-2023 End: 10-31-2023 ambulatory [facility] Start: 03-20-2023 End: 03-21-2023 ambulatory Ирина Gibson MD Facility[facility] Start: 01-23-2023 End: 01-24-2023 ambulatory Ирина Gibson MD Facility:[facility] Start: 01-09-2023 End: 01-10-2023 ambulatory Ирина Gibson MD Facility:[facility] Start: 12-12-2022 End: 12-13-2022 ambulatory Ирина Gibson MD Facility:[facility] Start: 10-25-2022 ambulatory LEÓN ogy:H1 Start: 10-14-2022 End: 10-14-2022 ambulatory LEONIE COYLE Facility:H1 Start: 09-23-2022 End: 09-24-2022 ambulatory LEÓN Tejada [facility] NAMED [facility] Facility:H1 Start: 09-14-2022 End: 09-15-[address] . Facility:H1 Start: 09-02-2022 End: 09-03-2022 ambulatory LEÓN Tejada FORMER[facility] NAMED [facility] Facility:H1 Start: 08-08-2022 End: 08-09-[address] . Facility:H1 Start: 07-18-2022 End: 07-19-2022 ambulatory LEÓN Tejada FOR[facility] NAMED [facility] Facility:H1 Start: 06-30-2022 End: 07-01-[address] . Facility:H1 Start: 06-09-2022 End: 06-10-[address]HT[address] . Facility:H1 Start: 05-23-2022 End: 05-23-[address]HT[address] . Facility:H1 Start: 05-02-2022 ambulatory LEÓN Tejada [facility] NAMED [facility] Faci lity:H1 Start: 04-23-2022 End: 04-23-[address] MARINO FERNANDEZ Facility:H1 Start: 04-22-2022 End: 04-22-[address] AMBROCIO SPIEVY . Facility:H1 Start: 04-21-2022 End: 04-22-[address] . Facility:H1 Start: 04-08-2022 End: 04-09-2022 ambulatory [facility] Mallory FOR[facility] NAMED [facility] Facility:H1 Start: 03-30-2022 End: 03-30-2022 ambulatory Rancho Chamorro Other [email or web address] Other Start: 03-30-2022 Telephone encounter Rancho [facility] Start: 03-28-2022 End: 03-29-[address] . Facility:H1 Start: 03-27-[address] . Facili ty:H1 Start: 03-24-2022 Office outpatient vi sit 25 minutes [facility]UNC[facility] Start: 03-24-2022 End: 04-03-2022 ambulatory UNKNOWN PROVIDER [email or web address] Other Start: 03-16-2022 End: 03-16-2022 ambulatory Rancho Chamorro Other [email or web address] Other Start: 03-16-2022 Telephone encounter Rancho Chamorro [facility] Start: 03-11-2022 End: 03-12-2022 ambulatory LEÓN Tejada [facility] NAMED [facility] Facility:H1 Start: 02-18-2022 End: 02-19-2022 ambulatory LEÓN Tejada [facility] NAMED [facility] Facility:H1 Start: 02-11-2022 End: 02-12-[address] . Facility:H1 Start: 01-28-2022 End: 01-29-2022 ambulatory LEÓN Tejada [facility] NAMED [facility] Facility:H1 Start: 01-11-2022 End: 01-12-[address] . Facility:H1 Start: 01-04-2022 End: 01-05-2022 ambulatory LEÓN Tejada [facility] NAMED [facility] Facility:H1 Start: 12-23-2021 End: 12-23-2021 ambulatory Rancho Chamorro Other [email or web address] Other Start: 12-23-2021 Office outpatient vi sit 25 minutes Rancho Chamorro [facility] [place] [facility] Start: 12-20-2021 End: 12-21-2021 ambulatory [facility] Mallory FOR[facility] NAMED [facility] Facility:H1 Start: 12-13-2021 End: 12-14-2021 Evaluation and management of inpatient DR A[facility] MEHTA . Facility:H1 Start: 12-07-2021 Encounter for preprocedural cardiovascular examination LEÓN Tejada [facility] Start: 12-06-2021 End: 12-06-2021 ambulatory LEÓN Tejada [facility] NAMED [facility] Facility:H1 Start: 12-05-2021 End: 12-05-[address]HT[address] . Facility:H1 Start: 12-02-2021 End: 12-03-2021 ambulatory LEÓN Tejada [facility] NAMED [facility] Facility:H1 Start: 12-02-2021 End: 12-03-2021 Encounter for preprocedural cardiovascular examination [facility] Mallory FOR[facility] NAMED [facility] Facility:H1 Start: 11-30-2021 End: 12-01-2021 ambulatory LEÓN Tejada [facility]AMED [facility] Facility:H1 Start: 11-29-2021 End: 11-29-2021 ambulatory MIRNA PARSONS . Facility:H1 Start: 11-17-2021 End: 11-17-2021 ambulatory Rancho Chamorro Other [email or web address] Other Start: 11-17-2021 Office outpatient vi sit [address] [facility] Start: 11-17-2021 Telephone encounter [facility] [place] [facility] Start: 11-04-2021 End: 11-09-2021 Evaluation and management of inpatient [facility] Facility:[facility] Start: 11-04-2021 End: 11-04-2021 ambulatory Rancho Chamorro Other [email or web address] Other Start: 11-04-2021 Telephone encounter Rancho [facility] Start: 11-03-2021 (Procedure) Short Rancho Chamorro [facility] Start: 11-03-2021 End: 11-03-2021 ambulatory Emilie Gonzalez [facility] Other Start: 11-03-2021 Office outpatient vi sit [address] [facility] Start: 10-28-2021 End: 10-28-2021 ambulatory Rancho Chamorro Other [email or web address] Other Start: 10-28-2021 Office outpatient vi sit 25 minutes [facility] Start: 10-26-2021 End: 10-26-2021 ambulatory Gunnar Fernandez Facility:[facility] Start: 10-07-2021 End: 10-07-2021 ambulatory Gunnar Fernandez Other [email or web address] Other Start: 10-07-2021 Telephone encounter Gunnar Hardwick [facility] Start: 10-06-2021 End: 10-06-2021 ambulatory Gunnar Fernandez [email or web address] Other Start: 10-06-2021 Office outpatient vi sit 15 minutes Gunnar Fernandez [facility] Start: 09-08-2021 End: 09-08-2021 ambulatory Gunnar Fernandez Other [email or web address] Other Start: 09-08-2021 Office outpatient vi sit 15 minutes [facility] Start: 04-22-2021 End: 04-29-2021 Evaluation and management of inpatient ROBERTA DANE Facility:[facility] Procedures Date Procedure Procedure Detail [...] now? 1 Result Comment: PERF ORMED BY: [facility] [address] [place] [address] PATHOLOGIST INTERVENTIONAL NEURORADIOLOGIST GERA CASTELLANOS M.D. Payers Date Payer Category Payer Medicaid [id number] 2022 Medicare 2022 Unknown 2021 Self-pay 2002 Medicare [id number] 1959 Medicare [id number] 1959 Self-pay [id number] 1959 Unknown [id number] 1950 Unknown [id number] 2.16.8 40.1.626580.3.579.2.647 1950 Unknown [id number] 2.16. 840.1.041204.3.579.2.732 1950 Unknown [id number] 2.16.84 0.1.179920.3.579.2.593 1950 Unknown [id number] 2.16.84 0.1.654087.3.579.2.593 1948 Unknown [id number] 2.16.84 0.1.057167.3.579.2.593 1948 Unknown [id number] 2.16.84 0.1.712504.3.579.2.593 1948 Unknown [id number] 2.16.84 0.1.922115.3.579.2.593 1948 Unknown [id number] 2.16.84 0.1.726115.3.579.2.593 1948 Unknown [id number] 2.16.84 0.1.775865.3.579.2.593 1948 Unknown [id number] 2.16.84 0.1.809647.3.579.2.593 1948 Unknown [id number] 2.16.84 0.1.029981.3.579.2.593 1948 Unknown [id number] 2.16.84 0.1.970064.3.579.2.593 1948 Unknown [id number] 2.16.84 0.1.181166.3.579.2.593 1948 Unknown [id number] 2.16.84 0.1.193749.3.579.2.593 1948 Unknown [id number] 2.16.84 0.1.295766.3.579.2.593 1948 Unknown [id number] 2.16.84 0.1.847694.3.579.2.593 1948 Unknown [id number] 2.16.84 0.1.402921.3.579.2.593 1948 Unknown [id number] 2.16.84 0.1.536138.3.579.2.593 1948 Unknown [id number] 2.16.84 0.1.179330.3.579.2.593 1948 Unknown [id number] 2.16.84 0.1.885107.3.579.2.593 1948 Unknown [id number] 2.16.84 0.1.026136.3.579.2.593 1948 Unknown [id number] 2.16.84 0.1.176338.3.579.2.593 1948 Unknown [id number] 2.16.84 0.1.232105.3.579.2.593 1948 Unknown [id number] 2.16.84 0.1.388964.3.579.2.593 1948 Unknown [id number] 2.16.84 0.1.540275.3.579.2.593 1948 Unknown [id number] 2.16.84 0.1.760071.3.579.2.593 1948 Unknown [id number] 2.16.84 0.1.077040.3.579.2.593 1948 Unknown [id number] 2.16.84 0.1.199699.3.579.2.593 1948 Unknown [id number] 2.16.84 0.1.389059.3.579.2.593 1948 Unknown [id number] 2.16.84 0.1.232852.3.579.2.593 1948 Unknown [id number] 2.16. 840.1.163362.3.579.2.196 1948 Unknown [id number] 2.16. 840.1.995199.3.579.2.196 1948 Unknown [id number] 2.16. 840.1.074253.3.579.2.196 1948 Unknown [id number] 2.16. 840.1.972615.3.579.2.196 Unknown [id number] 2.16.8 40.1.058366.3.579.2.531 Unknown [id number] 2.16.8 40.1.770966.3.579.2.531 Unknown [id number] 2.16.8 40.1.365497.3.579.2.531 Unknown [id number] 2.16.8 40.1.565943.3.579.2.531 Unknown [id number] 2.16.84 0.1.559078.3.579.2.593 Social History Date Type Detail Facility Sex Assigned At [email or web address] Other Clinical Notes 04-29-2021 to 05-21-2024 Note Date & Type Note Facility 05-21-2024 Note DC Electrophysiology Consult Note DC Cardiology [facility] Reason for visit: 05/21/24 Pt has come for device check which has revealed normal functioning and no AF. Patient here for 6 mo follow up sinus node dysfunction s/p PPM, PAF, hypertension, and dyslipidemia. Had labs a few weeks ago. C/o intermittent random chest pain. Denies SOB and palpitations. Denies lightheadedness/syncope and bleeding on Eliquis. Says she lost her balance and fell recently. 10/30/20 Patient here for 6 mo follow [...] with prior history of transferred from an [facility] to [facility] following a fall that she sustained. She was noted to be bradycardic and EKG at that time showed her to have bradycardia in the rate of 30s following admission to [facility] she was noted to have [...] Sarcoidosis 11/18/2013 Sinus node dysfunction (CMS/HCC) 04/23/2022 PSH: Past Surgical History: Procedure Laterality Date CARDIAC CATHETERIZATION CARDIAC PACEMAKER PLACEMENT COLONOSCOPY CT AORTA AND BILATERAL ILIOFEMORAL RUNOFF ANGIOGRAM W AND/OR WO IV CONTRAST 04/23/2022 CT AORTA AND BILATERAL ILIOFEMORAL RUNOFF ANGIOGRAM W AND/OR WO IV CONTRAST 04/23/[address] [facility] [address] IMAG[address] CT CHEST ANGIOGRAM W AND/OR WO IV CONTRAST 04/23/2022 CT CHEST ANGIOGRAM W AND/OR WO IV CONTRAST 04/23/[address] [facility] [address] IMAGING TONSILLECTOMY SH: Social [...] Connections: Not on file Intimate Partner Violence: Unkn (more content not included)... [facility] 10-31-2023 Note DC Electrophysiology Consult Note DC Cardiology [facility] Reason for visit: 10/30/20 Patient here [...] with prior history of transferred from an [facility] to [facility] following a fall that she sustained. She was noted to be bradycardic and EKG at that time showed her to have bradycardia in the rate of 30s following admission to [facility] she was noted to have [...] Sarcoidosis 11/18/2013 Sinus node dysfunction (CMS/HCC) 04/23/2022 [facility]: Past Surgical History: Procedure Laterality Date CARDIAC CATHETERIZATION CARDIAC PACEMAKER PLACEMENT COLONOSCOPY CT AORTA AND BILATERAL ILIOFEMORAL RUNOFF ANGIOGRAM W AND/OR WO IV CONTRAST 04/23/2022 CT AORTA AND BILATERAL ILIOFEMORAL RUNOFF ANGIOGRAM W AND/OR WO IV CONTRAST 04/23/[address] [facility] [address] IMAGING CT CHEST ANGIOGRAM W AND/OR WO IV CONTRAST 04/23/2022 CT CHEST ANGIOGRAM W AND/OR WO IV CONTRAST 04/23/[address] [facility] [address] IMAGING TONSILLECTOMY SH: Social [...] on file Intimate Partner Violence: Unknown (08/03/2023) DC Safety & Environment Fear of Current or Ex-Partner: Not on file Emotionally Abused: Not on file Physically Abused: Not on file Sexually Abused: Not on file Physically or Sexually Abused: Not on file Depression: Not on file Housing Stability: Not on file Utilities: Not on file Allergies: Allergies Allergen Reactions House Dust Unknown Pollen Extr (more content not included)... [facility] 03-30-2022 Evaluation note Encounter Date Diagnosis Assessment Notes Mar, Other spondylosis with radiculopathy, lumbar region (ICD-10 - M47.26) [email or web address] Other 10-13-2022 Evaluation note* Encounter Date Diagnosis [...] note writ ten by Summer Molina LPN, Work Force Advisor. Edited and approved by Dr. Rancho Chamorro MD. [email or web address] Other 10-05-2022 Evaluation note* Encounter Date Diagnosis Assessment Notes Treatment Notes Treatment Clinical Notes Mar, Other low back pain (ICD-10 - M54.59) [email or web address] Other 07-14-2022 Evaluation note* Encounter Date Diagnosis [...] note writ ten by Mika Villalobos MA, Work Force Advisor. Edited and approved by Dr. Rancho Chamorro MD. [email or web address] Other 06-08-2022 Evaluation note* Encounter Date Diagnosis [...] note writ ten by Mika Villalobos MA, Work Force Advisor. Edited and approved by Dr. Rancho Chamorro MD. [email or web address] Other 06-08-2022 Evaluation note* Encounter Date Diagnosis [...] four weeks, case discussed with Dr. Diaz [facility] has been contacted and will consult wound care. [email or web address] Other 05-25-2022 Evaluation note* Encounter Date Diagnosis [...] for Keflex BID x 14 days and Rufe. Patient and sister instructed to contact office with any signs of infection or significant changes [email or web address] Other 05-19-2022 Evaluation note* Encounter Date Diagnosis [...] note writ ten by Summer Molina LPN, Work Force Advisor. Edited and approved by Dr. Rancho Chamorro MD. [email or web address] Other 04-28-2022 Evaluation note* Encounter Date Diagnosis Assessment Notes Treatment Notes Treatment Clinical Notes Sep, Pacemaker (ICD-10 - Z95.0) [email or web address] Other 04-27-2022 Evaluation note* Encounter Date Diagnosis [...] spinal osteoarthritis complication status (ICD-10 - M47.816) [email or web address] Other 03-30-2022 Evaluation note* Encounter Date Diagnosis [...] D. To call with questions or concerns. [email or web address] Other 11-18-2021 NoteMR#: [id number] I [facility] Pt. Name: Linda Nascimento Admitted: 04/21/2021 [...] The patient was subsequently transferred to the [facility] for higher level of care. [...] Lozada MD Date Trans: 04/29/2021 12:17 P/roni [id number] cc: Leslie Arroyo M.D. [address] [place] [address]. [address] [facility] [address]hta M.D. [address] [place] [address]Dwn [facility] noteNo InformationNort Ceon Other History general Narrative - Reported* Type Description Date Medical History bipolar Medical History Arthritis Medical History high blood pressure Medical History chronic depression Medical History iron deficiency anemia Medical History kidney disease Medical History hyperlipidemia Medical History anxiety Medical History vitamin D deficiency Surgical History tonsillectomy Surgical History laparoscopy Hospitalization History depression [email or web address] Other Summary Purpose Family History No Family [...] and content) DATE CREATED AUTHOR 05/30/2021 [facility] DATE CREATED AUTHOR AUTHOR'S ORGANIZ ATION 04/05/2022 [facility] DATE CREATED AUTHOR AUTHOR'S ORGANIZ ATION 07/16/2022 [facility] DATE CREATED AUTHOR AUTHOR'S ORGANIZ ATION 10/19/2022 [facility] DATE CREATED AUTHOR AUTHOR'S ORGANIZ ATION 03/27/2023 [facility] DATE CREATED AUTHOR AUTHOR'S ORGANIZ ATION 05/10/2024 [facility] DATE CREATED AUTHOR AUTHOR'S ORGANIZ ATION 05/24/2024 [facility] REASON FOR VISIT (unrecogniz ed section [...] BE BASED ON THE PRIMARY CLINICAL RECORDS. [employer] provides no warranty or guarantee of the accuracy or completeness of information in this document.
== END 2024-07-09 15:35 | disposition home or self-care (01) ==
LOC: WC 15:34
PROVIDERS: PCP Family Medicine; Visit Provider Physician Assistant
DX: I87.312 Chronic venous hypertension (idiopathic) with ulcer of left lower extremity (principal); L97.822 Non-pressure chronic ulcer of other part of left lower leg with fat layer exposed
CPT/HCPCS: 29580

== ENCOUNTER 2024-08-06 10:00 | Outpatient (OUT) | payer MEDICARE, MEDICAID, SELFPAY ==
--- OUTSIDE RECORDS SUMMARY | 2024-08-07 11:18 | XMS_ITS | CCD ---
Author Organization [facility] CliniSywy Care Team Providers Care Communications Project Lead Name Role Phone ROBERTA VELA Admitting Unavailable ALEXANDRA LESLIE Referring Unavailable BILLY LOZADA Attending Unavailable AVE MEHTA Primary Care Unavailable Gunnar Fernandez Unavailable [place] Unavailable Emilie Perez Unavailable PROVIDER, UNKNOWN Admitting Unavailable PROVIDER, UNKNOWN Attending Unavailable JANINE ., DR DORADO Primary Care Unavailable JANINE ., DR DORADO Admitting Unavailable HOY ., DR DORADO Consulting Unavailable HOY ., DR DORADO Attending Unavailable MARKER ., DR CURTIS Consulting Unavailable PAOLOANDER PETER Mallory Consulting Unavailable AUDRA LAGOS Consulting Unavailable CARITO BULLOCK Consulting Unavailable MARE JAIMES Consulting Unavailable HIGHLANDER, PETER D Admitting Unavailable HIGHLANDER, PETER D Attending Unavailable HOMilo ., DR DORADO Primary Care Unavailable HOY ., DR DORADO Primary Care Unavailable SHERIE OLMOS Attending Unavailable SHERIE OLMOS Admitting Unavailable JANINE ., DR DORADO Primary Care Unavailable REBECCA, DR MARINO Braswell Consulting Unavailable JANINE ., DR DORADO Primary Care Unavailable MIRNA MARIE Attending Unavailable ISSA ., MIRNA Admitting Unavailable MIRNA MARIE Consulting Unavailable FAWN MARINELLI Consulting Unavaila ble PAOLOANDER, PETER D Admitting Unavailable HIGHLANDER, PETER D Attending Unavailable JANINE ., DR DORADO Primary Care Unavailable HIGHLANDER, PETER D Admitting Unavailable HIGHLANDER, PETER D Attending Unavailable HOY ., DR DORADO Primary Care Unavailable HIGHLANDER, PETER D Attending Unavailable HOY ., DR DORADO Primary Care Unavailable HIGHLANDER, PETER D Admitting Unavailable HIGHLANDER, PETER D Attending Unavailable JANINE ., DR DORADO Primary Care Unavailable HIGHLANDER, [...] DORADO Consulting Unavailable HOY ., DR DORADO Admberenice Unavailable HOY ., DR DORADO Consulting Unavailable HOY ., DR DORADO Attending Unavailable HOY ., DR DORADO Primary Care Unavailable LEONIDES, LEONIE Attending Unavailable LEONIDES, LEONIE Admitting Unavailable ZIANIRUDH, DR MARINO Braswell Consulting Unavailable HOY ., DR DORADO Primary Care Unavailable PAY ., DR DING Consulting Unavailable LEONIDES, LEONIE Consulting Unavailable LEÓN LLAMAS Consulting Unavailable PAY ., DR DING Attending Unavailable PAY ., DR DING Consulting Unavailable HOY ., DR DORADO Primary Care Unavailable PAY ., DR DING Admitting Unavailable DUNN ., MR BANG Consulting Unavailable POLICKAELA, MADINA Consulting Unavailable ITKIN NGUYEN Consulting Unavailable HIGHLANDER, PETER D Admitting Unavailable HIGHLANDER, PETER D Attending Unavailable HOY ., DR DORADO Primary Care Unavailable HOY ., DR DORADO Primary Care Unavailable TAMLYN ., JAMES Attending Unavailable TAMLYN ., JAMES Admitting Unavailable HOY ., DR DORADO Primary Care Unavailable AMARILISSHERIE AGUIRRE Attending Unavailable MYRIAM OLMOSLY Admitting Unavailable HOY ., DR DORADO Primary Care Unavailable HOY ., DR DORADO Admitting Unavailable HOY ., DR DORADO Consulting Unavailable HOY ., DR DORADO Attending Unavailable HIGHLANDER, PETER D Consulting Unavailable HIGHLANDER, PETER D Admitting Unavailable HOY ., DR DORADO Primary Care Unavailable HIGHLANDER, PETER D Attending Unavailable AGUBOSIM, ISABEL Consulting Unavailable NEYDA CALDWELL Consulting Unavailable AYYAGARI ., SAMINA Consulting Unavailable ISSA ., MIRNA Attending Unavailable SEUN ., ALISON Consulting Unavailable JANINE ., DR DORADO Primary Care Unavailable ISSA ., MIRNA Admitting Unavailable DAVID STOKES Consulting Unavailable SHERRY CONDON Consulting Unavailable HOY ., DR DORADO Admitting Unavailable HOMilo ., DR DORADO Consulting Unavailable JANINE ., DR DORADO Attending Unavailable MARGO, DR BORIS Hardwick Procedure Practitioner Yun vailable JANINE ., DR DORADO Primary Care Unavailable CICI ., DR IVAN Bowden Consulting Unavailable MARGO, DR BORIS Hardwick Consulting Unavailsandro JOSEPH, KIAN Consulting Unavailable RISHABH ART Consulting Unavailable LEÓN PETERS Unavailable HOMilo ., DR DORADO Primary Care Unavailable HOY ., DR DORADO Admitting Unavailable ROSETTA, DR REYMUNDO Braswell Consulting Unavailable HOY ., DR DORADO Attending Unavailable HOY ., DR DORADO Consulting Unavailable SHAIKH Roberto NICOLAS Consulting Unavailable LEÓN DIAS Consulting Unavailable LEÓN DIAS Attending Unavailable LEÓN DIAS Admitting Unavailable JANINE ., DR DORADO Primary Care Unavailable JANINE ., DR DORADO Primary Care Unavailable ALGHODISHA, MOHAMAMallory Attending Unavailable ALGHOTHANI, MOHAMAD Admitting Unavailable LILIANA MARKEL Consulting Unavailable LEÓN DIAS Admitting Unavailable LEÓN DIAS Attending Unavailable JANINE ., DR DORADO Primary Care Unavailable CROSBY, DR RISHABH Martin Consulting Unavailable LEÓN DIAS Consulting Unavailable Arthur OLIVER, Ирина Loya Attending Unavailable Arthur OLIVER, Ирина Loya Attending Unavailable Arthur OLIVER, Fridarius Loya Attending Unavailable Arthur OLIVER, Andrius Loya Attending Unavailable ENOCH FRANKEL Referring Unavailable ENOCH FRANKEL Attending Unavailable ENOCH FRANKEL Attending Unavailable ENOCH FRANKEL Referring Unavailable Ave Mehta MD Primary Care Provider Alvaro Ham MD Attending Provider Alvaro Ham Attending Unavailable Alvaro Ham Admitting Unavailable Ave Mehta Primary Care Unavailable Allergies Allergy Classification Reported Allergen(s) Allergy Type Date of Onset Reaction(s) Facility (1 source) house dust allergenic extract; Translations: [HOUSE DUST] Drug Allergy 4 [facility] Repository (1 source) Pollen; Translations: [POLLEN EXTRACTS] Propensity to adverse reactions to drug (disorder) 4 [facility] Medications Current Medications Medication Drug Class(es) Dates Sig (Normalized) Sig (Original) acetaminophen 500 mg oral tablet (13 sources) take 2 tablets by mouth every eight hours as needed [facility] Acetaminophen [facility] 500 MG TAKE 2 TABLETS BY MOUTH EVERY 8 HOURS NEEDED for 30 Active acetaminophen 325 mg / HYDROcodone bitartrate 10 mg oral tablet (11 sources) Opioid Agonist Start: 11-04-2021 End: 11-09-2021 take 1 tablet by mouth every eight hours as needed for pain Hydrocodone-Acetami nophen 10-325 mg Tablet Active 1 TAB PO Q8H as needed for Pain 15 November 09, 2021 Start: 11-03-2021 take 1 tablet by brynn th every eight hours HYDROcodone-Acetaminophen 5-325 MG 1 tab let as needed Orally every 8 hrs for 7 days October, Active alendronic acid 70 mg oral tablet (1 source) Bisphosphonate Start: 06-03-2020 Alendronate 70 mg tablet Active MG PO every week June 03, 2020 12:00am States takes injection/infusion every 6 months at [facility], ordered by Dr. Mehta. aspirin 81 mg chewable tablet (14 sources) Platelet Aggregation Inhibitor, Nonsteroidal Anti-inflammatory Drug Start: 06-03-2020 take 1 tablet by mouth once daily Aspirin 81 mg Tablet,Chewable Active 81 MG PO Daily June 03, 2020 12:00am On Hold: Resume on 11/22/21. take 1 tablet by mouth once dayton y Aspirin 81 81 MG 1 tablet Orally Once a day Active baclofen 10 mg oral tablet (7 sources) gamma-Aminobutyric Acid-ergic Agonist Start: 11-04-2021 take 1 tablet by mouth once daily Baclofen 10 mg Tablet Active 10 MG PO Daily November 03, 2021 11:00pm take 1 tablet by mouth every twe lve hours Baclofen 10 MG 1 tablet as needed Orally Twice a day Active buPROPion hydrochloride 100 mg oral tablet (14 sources) Aminoketone Start: 06-04-2020 take 1 tablet by mouth twice daily Bupropion Hcl 100 mg Tablet Active 100 MG PO Twice daily June 04, 2020 12:00am busPIRone hydrochloride 15 mg oral tablet (14 sources) Start: 06-03-2020 take 1 tablet by mouth three times daily Buspirone 15 mg Tablet Active 15 MG PO Three times daily June 03, 2020 12:00am take 1 tablet by brynn th every twelve hours busPIRone HCl 15 MG 1 tablet Orally Twic e a day Active Calcium-Vitamin D 500-400 MG-UNIT (13 sources) Start: 07-20-2020 take 1 tablet by mouth once daily Calcium-Vitamin D 500-400 MG-UNIT 1 tablet with a meal Orally Once a day for 30 day(s) Jul, Active carvedilol 25 mg oral tablet (15 sources) alpha-Adrenerg ic Marah, beta-Adrenergi c Marah Start: 11-08-2021 take 1 tablet by mouth twice daily Carvedilol 25 mg Tablet Active 25 MG PO Twice daily 0 November 08, 2021 12:05pm Start: 11-04-2021 End: 11-08-2021 take 1 tablet by mouth three times daily Carvedilol 25 mg Tablet Discontinued 25 MG PO Three times daily November 03, 2021 11:00pm November 08, 2021 12:07pm cephalexin 500 mg oral capsule (9 sources) Cephalosporin Antibacterial Start: 11-03-2021 take 1 capsule by mouth twice daily Cephalexin 500 MG 1 capsule Orally twice daily for 14 days October, Active cholecalciferol 0.125 mg oral tablet (1 source) Vitamin D Start: 06-03-2020 take 1 tablet by mouth once daily Cholecalciferol (Vitamin D3) (Vitamin D3) 125 mcg (5,000 unit) tablet Active 5000 UNIT PO Daily June 03, 2020 12:00am clonazePAM 0.5 mg oral tablet (17 sources) Benzodiazepine Start: 11-04-2021 End: 11-09-2021 take 1 tablet by mouth three times daily Clonazepam (Klonopin) 0.5 mg tablet Active 0.5 MG PO Three times daily 15 November 09, 2021 1:39pm Start: 06-08-2020 End: 11-04-2021 take 1 tablet by mouth twice daily Clonazepam (Klonopin) 0.5 mg tablet Discontinued 0.5 MG PO Twice daily 6 June 08, 2020 12:26pm November 04, 2021 11:18am Start: 06-03-2020 End: 06-08-2020 take 1 tablet by mouth three times daily Clonazepam (Klonopin) 0.5 mg tablet Discontinued 0.5 MG PO Three times daily June 03, 2020 12:00am June 08, 2020 12:27pm take 1 tablet by brynn th every twenty-four hours clonazePAM 0.5 MG 1 tablet at bedtime Orally Once a day Active diclofenac sodium 75 mg delayed release oral tablet (14 sources) Nonsteroidal Anti-inflammatory Drug Start: 06-03-2020 take 1 tablet by mouth twice daily Diclofenac Sodium 75 mg tablet,delayed release (DR/EC) Active 75 MG PO Twice daily June 03, 2020 12:00am ferrous sulfate 325 mg oral tablet (15 sources) Start: 11-08-2021 Ferrous Sulfate 325 mg (65 mg iron) Tablet Active 325 MG PO Q48H November 08, 2021 12:05pm QOD Start: 06-03-2020 End: 11-08-2021 take 1 tablet by mouth twice daily Ferrous Sulfate 325 mg (65 mg iron) Tablet Discontinued 325 MG PO Twice daily June 03, 2020 12:00am November 08, 2021 12:07pm QOD take 1 tablet by brynn th every twenty-four hours Iron 325 (65 Fe) MG 1 tablet Orally Once a day Active FLUoxetine 20 mg oral capsule (2 sources) Serotonin Reuptake Inhibitor Start: 11-04-2021 take 3 capsules by mouth once daily Fluoxetine 20 mg capsule Active 60 MG PO Daily November 03, 2021 11:00pm Start: 06-03-2020 End: 11-04-2021 take 1 capsule by mouth once daily Fluoxetine 40 mg capsule Discontinued 40 MG PO Daily June 03, 2020 12:00am November 04, 2021 11:18am furosemide 40 mg oral tablet (2 sources) Loop Diuretic Start: 11-04-2021 take 1 tablet by mouth once daily Furosemide 40 mg tablet Active 40 MG PO Daily November 03, 2021 11:00pm Start: 06-03-2020 End: 11-04-2021 Furosemide 20 mg tablet Disc ontinued 20 MG PO Use as Directed June 03, 2020 12:00am November 04, 2021 11:18am gabapentin 300 mg oral capsule (11 sources) Anti-epileptic Agent Start: 10-28-2021 take 1 tablet by mouth twice daily Start: 10-28-2021 take 2 capsules by m outh every twelve hours Gabapentin 300 MG 2 capsule Orally BID for 30 day(s) October, Active hydrALAZINE hydrochloride 50 mg oral tablet (14 sources) Arteriolar Vasodilator Start: 11-04-2021 take 1 tablet by mouth three times daily Hydralazine 50 mg Tablet Active 50 MG PO Three times daily November 03, 2021 11:00pm take 1 tablet by brynn th every eight hours hydrALAZINE HCl 25 MG 1 tablet with food Orally Three times a day Active lamoTRIgine 100 mg oral tablet (1 source) Mood Stabilizer, Anti-epileptic Agent Start: 06-03-2020 take 2 tablets by mouth once daily at bedtime Lamotrigine (Lamictal) 100 mg Tablet Active 200 MG PO Daily at bedtime June 03, 2020 12:00am losartan potassium 100 mg oral tablet (1 source) Angiotensin 2 Receptor Marah Start: 11-04-2021 take 1 tablet by mouth once daily Losartan 100 mg tablet Active 100 MG PO Daily November 03, 2021 11:00pm OLANZapine 10 mg oral tablet (1 source) Atypical Antipsychotic Start: 06-03-2020 take 1 tablet by mouth at bedtime Olanzapine 10 mg tablet Active 10 MG PO Bedtime June 03, 2020 12:00am omeprazole 20 mg delayed release oral capsule (1 source) Proton Pump Inhibitor Start: 11-04-2021 take 2 capsules by mouth twice daily Omeprazole 20 mg Capsule,Delayed Release(Dr/Ec) Active 40 MG PO Twice daily November 03, 2021 11:00pm microencapsulated potassium chloride 10 meq extended release oral tablet (1 source) Start: 11-04-2021 take 1 tablet by mouth twice daily Potassium Chloride 10 mEq tablet,ER particles/zari ls Active 10 MEQ PO Twice daily November 03, 2021 11:00pm pravastatin sodium 20 mg oral tablet (1 source) HMG-CoA Reductase Inhibitor Start: 06-03-2020 take 1 tablet by mouth once daily Pravastatin 20 mg tablet Active 20 MG PO Daily June 03, 2020 12:00am tamsulosin hydrochloride 0.4 mg oral capsule (1 source) alpha-Adrenergic Marah Start: 11-04-2021 take 1 capsule by mouth once daily Tamsulosin (Flomax) 0.4 mg Capsule Active 0.4 MG PO Daily November 03, 2021 11:00pm tiZANidine 4 mg oral tablet (14 sources) Central alpha-2 Adrenergic Agonist Start: 06-03-2020 take 2 tablets by mouth at bedtime Tizanidine 4 mg tablet Active 8 MG PO Bedtime June 03, 2020 12:00am take 1 tablet by mouth every eig ht hours tiZANidine HCl 4 MG 1 tablet as needed Orally Three times a day Active traMADol hydrochloride 50 mg oral tablet (19 sources) Opioid Agonist Start: 09-08-2021 take 1 tablet by mouth every four [...] Drug Class(es) Dates Sig (Normalized) Sig (Original) amLODIPine 10 mg oral tablet (14 sources) Dihydropyridine Calcium Channel Marah Start: 06-03-2020 End: 11-04-2021 take 1 tablet by mouth once daily Amlodipine (Norvasc) 10 mg tablet Discontinued 10 MG PO Daily June 03, 2020 12:00am November 04, 2021 11:18am take 1 tablet by brynn th every twenty-four hours amLODIPine Besylate 5 MG 1 tablet Orally Once a day Active irbesartan 300 mg oral tablet (1 source) Angiotensin 2 Receptor Marah Start: 06-03-2020 End: 11-04-2021 take 1 tablet by mouth once daily Irbesartan 300 mg tablet Discontinued 300 MG PO Daily June 03, 2020 12:00am November 04, 2021 11:18am ketorolac tromethamine 4 mg/ml ophthalmic solution (1 source) Nonsteroidal Anti-inflammatory Drug, Cyclooxygenase Inhibitor Start: 06-03-2020 End: 11-04-2021 take 1 drop(s) into the eye(s) four times daily Ketorolac 0.4 % Drops Discontinued 1 DROPS EYE-BOTH Four times daily June 03, 2020 12:00am November 04, 2021 11:18am Loperamide / Simethicone (1 source) Opioid Agonist Start: 06-03-2020 End: 11-04-2021 take 1 tablet by mouth every four hours as needed for diarrhea Loperamide-Simethic one 2-125 mg Tablet Discontinued 1 TAB PO Every 4 hours as needed for Diarrhea June 03, 2020 12:00am November 04, 2021 11:18am oxyCODONE hydrochloride 5 mg oral tablet (1 source) Opioid Agonist Start: 06-08-2020 End: 11-04-2021 take 1 tablet by mouth every six hours as needed for pain Oxycodone 5 mg Tablet Discontinued 5 MG PO Every 6 hours as needed for Moderate Pain 5 3 June 08, 2020 November 04, 2021 11:18am prednisoLONE 10 mg/ml ophthalmic solution (1 source) Corticosteroid Start: 06-03-2020 End: 11-04-2021 take 1 drop(s) into the eye(s) four times daily Prednisolone Sodium Phosphate 1 % Drops Discontinued 1 DROPS EYE-BOTH Four times daily June 03, 2020 12:00am November 04, 2021 11:18am Pt Unable To Verify Home Meds (1 source) Start: 06-03-2020 End: 06-08-2020 Pt Unable To Verify Home Meds Discontinued June 03, 2020 12:00am June 08, 2020 12:27pm spironolactone 50 mg oral tablet (14 sources) Aldosterone Antagonist Start: 06-03-2020 End: 11-04-2021 Spironolactone 50 mg tablet Discontinued 50 MG PO As Directed June 03, 2020 12:00am November 04, 2021 11:18am triamcinolone acetonide 40 mg/ml injectable suspension (13 sources) Corticosteroid Start: 09-08-2021 Kenalog-40 30 Aug, 2021 40 mg Start: 09-08-2021 Kenalog -40 mg [...] [Chronic kidney disease, stage 2 (mild)] Onset: 03-31-2022 06-08-2020 Chronic Chronic ulcer of skin (12 sources) [...] Onset: 03-31-2022 Chronic Deficiency and other anemia (1 source) Anemia of chronic disease; Translations: [Anemia in other chronic diseases classified elsewhere] 06-08-2020 Chronic Deficiency and other anemia (1 source) Anemia, unspecified; Translations: [ANEMIA UNSPECIFIED] Onset: 10-18-2022 Episodic Deficiency and other anemia (1 source) Anemia; Translations: [Anemia, unspecified] 11-04-2021 Episodic Diseases of white blood cells (1 source) Leukocytosis; Translations: [Elevated white blood cell count, unspecified] 06-08-2020 Chronic Disorders of lipid metabolism (4 sources) Hyperlipidemia, unspecified; Translations: [HYPERLIPIDEMIA UNSPECIFIED] Onset: 02-11-2022 Chronic E Codes: Fall (4 sources) Unspecified fall, initial encounter; Translations: [Fall from chair, initial encounter] Onset: 12-01-2021 11-04-2021 Episodic Esophageal disorders (1 source) Gastro-esophageal reflux disease without esophagitis; Translations: [GERD WITHOUT ESOPHAGITIS] Onset: 08-18-2022 Chronic Essential hypertension (2 sources) Essential (primary) hypertension; Translations: [Hypertensive disorder] Onset: 08-18-2022 11-09-2021 Chronic Fluid and electrolyte disorders (6 sources) Hypo-osmolality and hyponatremia; Translations: [Hyperkalemia] Onset: [...] CKD/UNS CKD] Onset: 05-11-2022 Chronic Mood disorders (2 sources) Bipolar disorder, unspecified; Translations: [Major depressive disorder, single episode, unspecified] Onset: 12-16-2021 Chronic Nutritional deficiencies (1 source) Vitamin D [...] region] Episodic Other aftercare (1 source) Other jail (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; Translations: [OTH SNF CURRENT DRUG THERAPY] Onset: 10-18-2022 Episodic Other [...] INSUFF CHRONIC PERIPHERAL] Onset: 06-09-2022 Episodic Other diseases of veins and lymphatics (1 source) Disorder of vein of lower extremity; Translations: [Venous insufficiency (chronic) (peripheral)] 06-08-2020 Episodic Other fractures (13 sources) Fracture of pubis; Translations: [Unspecified fracture of left pubis, subsequent encounter for fracture with delayed healing] Episodic Other fractures (1 source) Closed fracture of pelvis; Translations: [Fracture of unspecified parts of lumbosacral spine and pelvis, initial encounter for closed fracture] 06-03-2020 Episodic Other nervous system disorders (13 sources) [...] [NICOTINE DEPEND CIGARETTES UNCOMP] Onset: 05-11-2022 Chronic Superficial injury; contusion (18 sources) Contusion of left knee, initial encounter; Translations: [Abrasion, left lower leg, initial encounter] Onset: 11-03-2021 Resolved: 11-17-2021 Episodic Unclassified (1 source) CONTACT W/AND (SUSP) EXPOS [...] [IRON DEFICIENCY ANEMIA UNSPECIFIED] Onset: 2 Episodic Gastrointestinal hemorrhage (1 source) [...] Resolved: 2 Episodic Other aftercare (1 source) residential (current) use of antibiotics; Translations: [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 ANTIBIOTICS] Onset: 2 Episodic Other aftercare (1 source) 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; Translations: [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 OF ASPIRIN] Onset: 2 Episodic Other aftercare (1 source) residential (current) use of insulin; Translations: [SNF CURRENT USE OF INSULIN] Onset: 2 Episodic [...] INITIAL ENC CLOS FX] Onset: 2 Episodic Unclassified (1 source) Lumbar pain M54.50 Onset: 2 Resolved: 2 Unclassified (2 sources) Other low back pain M54.59 Onset: 2 Resolved: 2 Urinary tract infections (1 source) Urinary tract infection, site not specified; Translations: [UTI SITE NOT SPECIFIED] Onset: 2 Episodic Results Test Name Value Interpretation Reference Range Facility [facility] Antinuclear Antibodieson 07-31-2024 Antinuclear Abs, IFA Positive Critically abnormal . [facility] Comment on above: Result Comment: Nega tive <1:80 Borderline 1:80 Positive >1:80 Speckled cytoplasmic fluorescence is present. The antibodies noted in this pattern may be associated with, but not restricted to, primary biliary cirrhosis (PBC), polymyositis and dermatomyositis (PM/DM), and/or systemic lupus erythematosus (SLE). Performed By: #### T 4F, CK, CRP, TSH3, ESR, CBC, CMP #### [facility] [address] [place] [address] [place] #### HBCAB, JUSTINA, HBSAG, ALDOLASE, HCV RX PCR, HBSAB, THYGLOB AB, CHROMATIN, C4, C3, CH50, RPR W RFX, TPO, KERRI #### [facility] , Homogeneous Pattern 1:160 High . [facility] Comment on above: Result Comment: ICAP nomenclature: [id number] Performed By: #### T 4F, CK, CRP, TSH3, ESR, CBC, CMP #### [facility] [address] [place] [address] [place] #### HBCAB, JUSTINA, HBSAG, ALDOLASE, HCV RX PCR, HBSAB, THYGLOB AB, CHROMATIN, C4, C3, CH50, RPR W RFX, TPO, KERRI #### [facility] , Note 1 Comment Normal . [facility] Comment on above: Result Comment: Brigid mateus Potential Disease Association Homogeneous Systemic Lupus Erythematosus, Drug Induced Systemic Lupus Erythematosus, Chronic Autoimmune hepatitis, Juvenile Idiopathic Arthritis Speckled Sjogren Syndrome, Systemic Lupus Erythematosus, Subacute Cutaneous Lupus, Lupus, Congenital Heart Block, Mixed Connective Tissue Disease, Scleroderma-diffuse, Scleroderma-Autoimmune Myositis Overlap Syndrome, Systemic Lupus Oipfbduweaffd-Uvizoeonxsh-Jvpilcnlcv Myositis Overlap Syndrome, Systemic Autoimmune Rheumatic Disease, Undifferentiated Connective Tissue Disease Nucleolar Systemic Sclerosis, Scleroderma-Autoimmune Myositis Overlap Syndrome, Sjogren Syndrome, Raynaud phenomenon, Pulmonary Arterial Hypertension, Systemic Autoimmune Rheumatic Disease, Cancer Centromere Scleroderma-CREST, Limited Cutaneous SSc, Raynaud's Phenomenon, Primary Biliary Cholangitis Nuclear Dot Primary Biliary Cholangitis Nuclear Primary Biliary Cholangitis, Autoimmune Membrane Hepatitis/Liver disease, Systemic Autoimmune Rheumatic Disease, Autoimmune Cytopenias, Linear Scleroderma, Antiphospholipid Syndrome Performed at: [facility] [id number] Senior Research Consultant: Iain Siegel PhD, Phone: [phone] Performed By: #### T 4F, CK, CRP, TSH3, ESR, CBC, CMP #### [address] #### HBCAB, JUSTINA, HBSAG, ALDOLASE, HCV RX PCR, HBSAB, THYGLOB AB, CHROMATIN, C4, C3, CH50, RPR W RFX, TPO, KERRI #### [facility] , Alanine aminotransferase [En zymatic activity/volume] in Serum or PlasmaOrdered By: Alvaro Ham on 07-31-2024 ALT [Catalytic activity/Vol] Alanine aminotransferase [Enzymatic activity/volume] in Serum or Plasma [facility] Albumin [Mass/volume] in Ser um or Plasma by Bromocresol green (BCG) dye binding methoOrdered By: Alvaro Ham on 07-31-2024 Albumin BCG dye [Mass/Vol] Albumin [Mass/volume] in Serum or Plasma by Bromocresol green (BCG) dye binding metho 3.5-5.7 [facility] Aldolaseon 07-31-2024 Aldolase 3.3 U/L Normal 3.3-10.3 [facility] Comment on above: Result Comment: Perf ormed at: [facility] [id number] Senior Research Consultant: Iain Siegel PhD, Phone: [phone] PERFORMED BY: [place] [address] PATHOLOGIST HARDBOARD GRINDER SARAHI JUAREZ M.D. Performed By: #### T 4F, CK, CRP, TSH3, ESR, CBC, CMP #### [address] #### HBCAB, JUSTINA, HBSAG, ALDOLASE, HCV RX PCR, HBSAB, THYGLOB AB, CHROMATIN, C4, C3, CH50, RPR W RFX, TPO, KERRI #### [facility] , Alkaline phosphatase [Enzyma tic activity/volume] in Serum or PlasmaOrdered By: Alvaro Ham on 07-31-2024 ALP [Catalytic activity/Vol] Alkaline phosphatase [Enzymatic activity/volume] in Serum or Plasma 34-104 [facility] Angiotensin Converting Enzym libby 07-31-2024 Angiotensin converting enzyme [Catalytic activity/Vol] 53 U/L Normal 14-82 [facility] Comment on above: Result Comment: Perf ormed at: [address] [id number] Senior Research Consultant: Iain Siegel PhD, Phone: [phone] Performed By: #### T 4F, CK, CRP, TSH3, ESR, CBC, CMP #### [address] #### HBCAB, JUSTINA, HBSAG, ALDOLASE, HCV RX PCR, HBSAB, THYGLOB AB, CHROMATIN, C4, C3, CH50, RPR W RFX, TPO, KERRI #### [facility] , Antithyroglobulin Abon 07-31 Antithyroglobulin Ab <1.0 Normal 0.0-0.9 [facility] Comment on above: Result Comment: Thyr oglobulin Antibody measured by Mara Jeanne Methodology It should be noted that the presence of thyroglobulin antibodies may not be pathogenic nor diagnostic, especially at very low levels. The assay stitcher standard machine has found that four percent of individuals without evidence of thyroid disease or autoimmunity will have positive TgAb levels up to 4 IU/mL. Performed at: [facility] [address] [id number] Senior Research Consultant: Iain Siegel PhD, Phone: [phone] Performed By: #### T 4F, CK, CRP, TSH3, ESR, CBC, CMP #### [place] [address] [place] #### HBCAB, JUSTINA, HBSAG, ALDOLASE, HCV RX PCR, HBSAB, THYGLOB AB, CHROMATIN, C4, C3, CH50, RPR W RFX, TPO, KERRI #### [facility] , Aspartate aminotransferase [ Enzymatic activity/volume] in Serum or PlasmaOrdered By: Alvaro Ham on 07-31-2024 AST [Catalytic activity/Vol] Aspartate aminotransferase [Enzymatic activity/volume] in Serum or Plasma 13-39 [facility] Basophils Auto (Bld) [#/Vol] Ordered By: Alvaro Ham on 07-31-2024 Basophils (Bld) [#/Vol] Automated basoph il count 0.0-0.2 [facility] Basophils/100 WBC Auto (Bld) Ordered By: Alvaro Ham on 07-31-2024 Basophils/100 WBC (Bld) Automated basophil % . [facility] Bilirubin.total [Mass/volume ] in Serum or PlasmaOrdered By: Alvaro Ham on 07-31-2024 Bilirubin [Mass/Vol] Bilirubin.total [Mass/volume] in Serum or Plasma 0.3-1.0 [facility] C reactive protein [Mass/vol ume] in Serum or PlasmaOrdered By: Alvaro Ham on 07-31-2024 CRP [Mass/Vol] C reactive protein [Mass/volume] in Serum or Plasma High 0.0-0.5 [facility] C-Reactive Proteinon 025 C-Reactive Protein 2.6 mg/dL High 0.0-0.5 [facility] Comment on above: Performed By: #### T 4F, CK, CRP, TSH3, ESR, CBC, CMP #### [facility] [address] #### HBCAB, JUSTINA, HBSAG, ALDOLASE, HCV RX PCR, HBSAB, THYGLOB AB, CHROMATIN, C4, C3, CH50, RPR W RFX, TPO, KERRI #### [facility] , Calcium [Mass/volume] in Ser um or PlasmaOrdered By: Alvaro Ham on 07-31-2024 Calcium [Mass/Vol] Calcium [Mass/volume] in Serum or Plasma 8.6-10.3 [facility] Carbon dioxide, total [Moles /volume] in Serum or PlasmaOrdered By: Alvaro Ham on 07-31-2024 CO2 [Moles/Vol] Carbon dioxide, total [Moles/volume] in Serum or Plasma High 21.0-31.0 [facility] Chloride [Moles/volume] in S anne or PlasmaOrdered By: Alvaro Ham on 07-31-2024 Chloride [Moles/Vol] Chloride [Moles/volume] in Serum or Plasma 98-107 [facility] Chromatin Antibodyon 025 Chromatin Antibody <0.2 Normal 0.0-0.9 [facility] Comment on above: Performed By: #### T 4F, CK, CRP, TSH3, ESR, CBC, CMP #### [address] #### HBCAB, JUSTINA, HBSAG, ALDOLASE, HCV RX PCR, HBSAB, THYGLOB AB, CHROMATIN, C4, C3, CH50, RPR W RFX, TPO, KERRI #### [facility] , Complement C3on 07-31-2024 Complement C3 189 mg/dL High 82-167 [facility] Comment on above: Result Comment: Perf ormed at: - [facility] [address] [id number] Senior Research Consultant: Iain Siegel PhD, Phone: [phone] Performed By: #### T 4F, CK, CRP, TSH3, ESR, CBC, CMP #### [facility] [address] [place] [address] [place] #### HBCAB, JUSTINA, HBSAG, ALDOLASE, HCV RX PCR, HBSAB, THYGLOB AB, CHROMATIN, C4, C3, CH50, RPR W RFX, TPO, KERRI #### [facility] , Complement C4on 07-31-2024 Complement C4 36 mg/dL Normal 12-38 [facility] Comment on above: Performed By: #### T 4F, CK, CRP, TSH3, ESR, CBC, CMP #### [address] #### HBCAB, JUSTNIA, HBSAG, ALDOLASE, HCV RX PCR, HBSAB, THYGLOB AB, CHROMATIN, C4, C3, CH50, RPR W RFX, TPO, KERRI #### [facility] , Complement Total (CH50)on Complement Total (CH50) >60 Normal >41 T [facility] Comment on above: Result Comment: Age Male Female 1 - 30 days Not Estab. Not Estab. 31 days - 6 months >32 >20 7 months - 17 years >39 >39 >17 years >41 >41 NOTE: The adult ( >17 years ) reference interval range is used to flag abnormals on this report. If the patient is 17 years old or younger, use the table above to determine out of range values. Performed at: - [facility] [id number] Senior Research Consultant: Iain Siegel PhD, Phone: [phone] PERFORMED BY: [place] [address] PATHOLOGIST HARDBOARD GRINDER SARAHI JUAREZ M.D. Performed By: #### T 4F, CK, CRP, TSH3, ESR, CBC, CMP #### [address] #### HBCAB, JUSTINA, HBSAG, ALDOLASE, HCV RX PCR, HBSAB, THYGLOB AB, CHROMATIN, C4, C3, CH50, RPR W RFX, TPO, KERRI #### [facility] , Complete Blood Count Auto Di ffon 07-31-2024 Basophils (Bld) [#/Vol] 0.1 10*3/uL Normal 0.0-0.2 [facility] Comment on above: Performed By: #### T 4F, CK, CRP, TSH3, ESR, CBC, CMP #### [address] #### HBCAB, JUSTINA, HBSAG, ALDOLASE, HCV RX PCR, HBSAB, THYGLOB AB, CHROMATIN, C4, C3, CH50, RPR W RFX, TPO, KERRI #### [facility] , Basophils/100 WBC (Bld) 0.9 % Normal . T will [facility] Comment on above: Performed By: #### T 4F, CK, CRP, TSH3, ESR, CBC, CMP #### [address] #### HBCAB, JUSTINA, HBSAG, ALDOLASE, HCV RX PCR, HBSAB, THYGLOB AB, CHROMATIN, C4, C3, CH50, RPR W RFX, TPO, KERRI #### [facility] , Eosinophils (Bld) [#/Vol] 0.3 10*3/uL Normal 0.0-0.45 [facility] Comment on above: Performed By: #### T 4F, CK, CRP, TSH3, ESR, CBC, CMP #### [place] [address] [place] #### HBCAB, JUSTINA, HBSAG, ALDOLASE, HCV RX PCR, HBSAB, THYGLOB AB, CHROMATIN, C4, C3, CH50, RPR W RFX, TPO, KERRI #### [facility] , Eosinophils/100 WBC (Bld) 4.4 % Normal . [facility] Comment on above: Performed By: #### T 4F, CK, CRP, TSH3, ESR, CBC, CMP #### [place] [address] [place] #### HBCAB, JUSTINA, HBSAG, ALDOLASE, HCV RX PCR, HBSAB, THYGLOB AB, CHROMATIN, C4, C3, CH50, RPR W RFX, TPO, KERRI #### [facility] , Erythrocyte distribution width (RBC) [Ratio] 15.0 % Normal 11.9-15.3 [facility] Comment on above: Performed By: #### T 4F, CK, CRP, TSH3, ESR, CBC, CMP #### [place] [address] [place] #### HBCAB, JUSTINA, HBSAG, ALDOLASE, HCV RX PCR, HBSAB, THYGLOB AB, CHROMATIN, C4, C3, CH50, RPR W RFX, TPO, KERRI #### [facility] , Hematocrit (Bld) [Volume fraction] 34.5 % Normal 34.0-46.4 [facility] Comment on above: Performed By: #### T 4F, CK, CRP, TSH3, ESR, CBC, CMP #### [address] #### HBCAB, JUSTINA, HBSAG, ALDOLASE, HCV RX PCR, HBSAB, THYGLOB AB, CHROMATIN, C4, C3, CH50, RPR W RFX, TPO, KERRI #### [facility] , Hemoglobin (Bld) [Mass/Vol] 12.0 g/dL Normal 11.8-15.4 [facility] Comment on above: Performed By: #### T 4F, CK, CRP, TSH3, ESR, CBC, CMP #### [address] #### HBCAB, JUSTINA, HBSAG, ALDOLASE, HCV RX PCR, HBSAB, THYGLOB AB, CHROMATIN, C4, C3, CH50, RPR W RFX, TPO, KERRI #### [facility] , Lymphocytes (Bld) [#/Vol] 1.1 10*3/uL Normal 1.00-4.8 [facility] Comment on above: Performed By: #### T 4F, CK, CRP, TSH3, ESR, CBC, CMP #### [address] #### HBCAB, JUSTINA, HBSAG, ALDOLASE, HCV RX PCR, HBSAB, THYGLOB AB, CHROMATIN, C4, C3, CH50, RPR W RFX, TPO, KERRI #### [facility] , Lymphocytes/100 WBC (Bld) 15.8 % Normal . [facility] Comment on above: Performed By: #### T 4F, CK, CRP, TSH3, ESR, CBC, CMP #### [address] #### HBCAB, JUSTINA, HBSAG, ALDOLASE, HCV RX PCR, HBSAB, THYGLOB AB, CHROMATIN, C4, C3, CH50, RPR W RFX, TPO, KERRI #### [facility] , MCH (RBC) [Entitic mass] 36.0 pg High 24.7-34.3 [facility] Comment on above: Performed By: #### T 4F, CK, CRP, TSH3, ESR, CBC, CMP #### [address] #### HBCAB, JUSTINA, HBSAG, ALDOLASE, HCV RX PCR, HBSAB, THYGLOB AB, CHROMATIN, C4, C3, CH50, RPR W RFX, TPO, KERRI #### [facility] , MCV (RBC) [Entitic vol] 103.7 fL High 80-100 T [facility] Comment on above: Performed By: #### T 4F, CK, CRP, TSH3, ESR, CBC, CMP #### [address] #### HBCAB, JUSTINA, HBSAG, ALDOLASE, HCV RX PCR, HBSAB, THYGLOB AB, CHROMATIN, C4, C3, CH50, RPR W RFX, TPO, KERRI #### [facility] , Mean Corpuscular HGB Conc 34.7 g/dL Normal 32.0-35.0 [facility] Comment on above: Performed By: #### T 4F, CK, CRP, TSH3, ESR, CBC, CMP #### [address] #### HBCAB, JUSTINA, HBSAG, ALDOLASE, HCV RX PCR, HBSAB, THYGLOB AB, CHROMATIN, C4, C3, CH50, RPR W RFX, TPO, KERRI #### [facility] , Monocytes (Bld) [#/Vol] 0.5 10*3/uL Normal 0.0-0.8 [facility] Comment on above: Performed By: #### T 4F, CK, CRP, TSH3, ESR, CBC, CMP #### [place] [address] [place] #### HBCAB, JUSTINA, HBSAG, ALDOLASE, HCV RX PCR, HBSAB, THYGLOB AB, CHROMATIN, C4, C3, CH50, RPR W RFX, TPO, KERRI #### [facility] , Monocytes/100 WBC (Bld) 7.0 % Normal . T [facility] Comment on above: Performed By: #### T 4F, CK, CRP, TSH3, ESR, CBC, CMP #### [place] [address] [place] #### HBCAB, JUSTINA, HBSAG, ALDOLASE, HCV RX PCR, HBSAB, THYGLOB AB, CHROMATIN, C4, C3, CH50, RPR W RFX, TPO, KERRI #### [facility] , Neutrophils (Bld) [#/Vol] 5.2 10*3/uL Normal 1.8-7.7 [facility] Comment on above: Performed By: #### T 4F, CK, CRP, TSH3, ESR, CBC, CMP #### [place] [address] [place] #### HBCAB, JUSTINA, HBSAG, ALDOLASE, HCV RX PCR, HBSAB, THYGLOB AB, CHROMATIN, C4, C3, CH50, RPR W RFX, TPO, KERRI #### [facility] , Neutrophils/100 WBC (Bld) 71.9 % Normal . [facility] Comment on above: Performed By: #### T 4F, CK, CRP, TSH3, ESR, CBC, CMP #### [place] [address] [place] #### HBCAB, JUSTINA, HBSAG, ALDOLASE, HCV RX PCR, HBSAB, THYGLOB AB, CHROMATIN, C4, C3, CH50, RPR W RFX, TPO, KERRI #### [facility] , NRBC% 0.1 /100{WBC} Normal 0-0.5 [facility] Comment on above: Performed By: #### T 4F, CK, CRP, TSH3, ESR, CBC, CMP #### [address] #### HBCAB, JUSTINA, HBSAG, ALDOLASE, HCV RX PCR, HBSAB, THYGLOB AB, CHROMATIN, C4, C3, CH50, RPR W RFX, TPO, KERRI #### [facility] , Platelet mean volume (Bld) [Entitic vol] 7.9 fL Normal 6.3-10.7 [facility] Comment on above: Performed By: #### T 4F, CK, CRP, TSH3, ESR, CBC, CMP #### [address] #### HBCAB, JUSTINA, HBSAG, ALDOLASE, HCV RX PCR, HBSAB, THYGLOB AB, CHROMATIN, C4, C3, CH50, RPR W RFX, TPO, KERRI #### [facility] , Platelets (Bld) [#/Vol] 204 10*3/uL Normal 150-450 [facility] Comment on above: Performed By: #### T 4F, CK, CRP, TSH3, ESR, CBC, CMP #### [address] #### HBCAB, JUSTINA, HBSAG, ALDOLASE, HCV RX PCR, HBSAB, THYGLOB AB, CHROMATIN, C4, C3, CH50, RPR W RFX, TPO, KERRI #### [facility] , RBC (Bld) [#/Vol] 3.32 10*6/uL Low 3.60-5.00 [facility] Comment on above: Performed By: #### T 4F, CK, CRP, TSH3, ESR, CBC, CMP #### [address] #### HBCAB, JUSTINA, HBSAG, ALDOLASE, HCV RX PCR, HBSAB, THYGLOB AB, CHROMATIN, C4, C3, CH50, RPR W RFX, TPO, KERRI #### [facility] , WBC (Bld) [#/Vol] 7.2 10*3/uL Normal 3.8-11.6 [facility] Comment on above: Performed By: #### T 4F, CK, CRP, TSH3, ESR, CBC, CMP #### [address] #### HBCAB, JUSTINA, HBSAG, ALDOLASE, HCV RX PCR, HBSAB, THYGLOB AB, CHROMATIN, C4, C3, CH50, RPR W RFX, TPO, KERRI #### [facility] , Comprehensive Metabolic Pane mahendra 07-31-2024 Albumin [Mass/Vol] 3.7 g/dL Normal 3.5-5.7 [facility] Comment on above: Performed By: #### T 4F, CK, CRP, TSH3, ESR, CBC, CMP #### [place] [address] [place] #### HBCAB, JUSTINA, HBSAG, ALDOLASE, HCV RX PCR, HBSAB, THYGLOB AB, CHROMATIN, C4, C3, CH50, RPR W RFX, TPO, KERRI #### [facility] , Albumin/Globulin [Mass ratio] 1.4 {ratio} Normal [facility] Comment on above: Performed By: #### T 4F, CK, CRP, TSH3, ESR, CBC, CMP #### [place] [address] [place] #### HBCAB, JUSTINA, HBSAG, ALDOLASE, HCV RX PCR, HBSAB, THYGLOB AB, CHROMATIN, C4, C3, CH50, RPR W RFX, TPO, KERRI #### [facility] , ALP [Catalytic activity/Vol] 94 U/L Normal 34-104 [facility] Comment on above: Performed By: #### T 4F, CK, CRP, TSH3, ESR, CBC, CMP #### [place] [address] [place] #### HBCAB, JUSTINA, HBSAG, ALDOLASE, HCV RX PCR, HBSAB, THYGLOB AB, CHROMATIN, C4, C3, CH50, RPR W RFX, TPO, KERRI #### [facility] , ALT [Catalytic activity/Vol] 10 U/L Normal 7-52 [facility] Comment on above: Performed By: #### T 4F, CK, CRP, TSH3, ESR, CBC, CMP #### [place] [address] [place] #### HBCAB, JUSTINA, HBSAG, ALDOLASE, HCV RX PCR, HBSAB, THYGLOB AB, CHROMATIN, C4, C3, CH50, RPR W RFX, TPO, KERRI #### [facility] , Anion gap [Moles/Vol] 9.2 mmol/L Normal 6.0-15.0 [facility] Comment on above: Performed By: #### T 4F, CK, CRP, TSH3, ESR, CBC, CMP #### [place] [address] [place] #### HBCAB, JUSTINA, HBSAG, ALDOLASE, HCV RX PCR, HBSAB, THYGLOB AB, CHROMATIN, C4, C3, CH50, RPR W RFX, TPO, KERRI #### [facility] , AST [Catalytic activity/Vol] 14 U/L Normal 13-39 [facility] Comment on above: Performed By: #### T 4F, CK, CRP, TSH3, ESR, CBC, CMP #### [place] [address] [place] #### HBCAB, JUSTINA, HBSAG, ALDOLASE, HCV RX PCR, HBSAB, THYGLOB AB, CHROMATIN, C4, C3, CH50, RPR W RFX, TPO, KERRI #### [facility] , Bilirubin [Mass/Vol] 0.5 mg/dL Normal 0.3-1.0 [facility] Comment on above: Performed By: #### T 4F, CK, CRP, TSH3, ESR, CBC, CMP #### [facility] [address] [place] [address] [place] #### HBCAB, JUSTINA, HBSAG, ALDOLASE, HCV RX PCR, HBSAB, THYGLOB AB, CHROMATIN, C4, C3, CH50, RPR W RFX, TPO, KERRI #### [facility] , Calcium [Mass/Vol] 9.2 mg/dL Normal 8.6-10.3 [facility] Comment on above: Performed By: #### T 4F, CK, CRP, TSH3, ESR, CBC, CMP #### [facility] [address] [place] [address] [place] #### HBCAB, JUSTINA, HBSAG, ALDOLASE, HCV RX PCR, HBSAB, THYGLOB AB, CHROMATIN, C4, C3, CH50, RPR W RFX, TPO, KERRI #### [facility] , Chloride [Moles/Vol] 102 mmol/L Normal 98-107 [facility] Comment on above: Performed By: #### T 4F, CK, CRP, TSH3, ESR, CBC, CMP #### [facility] [address] #### HBCAB, JUSTINA, HBSAG, ALDOLASE, HCV RX PCR, HBSAB, THYGLOB AB, CHROMATIN, C4, C3, CH50, RPR W RFX, TPO, KERRI #### [facility] , CO2 [Moles/Vol] 34.1 mmol/L High 21.0-31.0 [facility] Comment on above: Performed By: #### T 4F, CK, CRP, TSH3, ESR, CBC, CMP #### [place] [address] [place] #### HBCAB, JUSTINA, HBSAG, ALDOLASE, HCV RX PCR, HBSAB, THYGLOB AB, CHROMATIN, C4, C3, CH50, RPR W RFX, TPO, KERRI #### [facility] , Creatinine [Mass/Vol] 1.42 mg/dL High 0.60-1.20 [facility] Comment on above: Performed By: #### T 4F, CK, CRP, TSH3, ESR, CBC, CMP #### [place] [address] [place] #### HBCAB, JUSTINA, HBSAG, ALDOLASE, HCV RX PCR, HBSAB, THYGLOB AB, CHROMATIN, C4, C3, CH50, RPR W RFX, TPO, KERRI #### [facility] , Estimated GFR 38.332 mL/Min Normal [facility] Comment on above: Performed By: #### T 4F, CK, CRP, TSH3, ESR, CBC, CMP #### [place] [address] [place] #### HBCAB, JUSTINA, HBSAG, ALDOLASE, HCV RX PCR, HBSAB, THYGLOB AB, CHROMATIN, C4, C3, CH50, RPR W RFX, TPO, KERRI #### [facility] , Globulin (S) [Mass/Vol] 2.7 g/dL Normal [facility] Comment on above: Performed By: #### T 4F, CK, CRP, TSH3, ESR, CBC, CMP #### [place] [address] [place] #### HBCAB, JUSTINA, HBSAG, ALDOLASE, HCV RX PCR, HBSAB, THYGLOB AB, CHROMATIN, C4, C3, CH50, RPR W RFX, TPO, KERRI #### [facility] , Glucose [Mass/Vol] 95 mg/dL Normal 70-100 [facility] Comment on above: Result Comment: [facility] Glucose Reference Range is dependent on time and content of last meal. Glucose of more than 200 mg/dL in a nonstressed, ambulatory subject supports the diagnosis of Diabetes Mellitus. ADA recommended reference range Performed By: #### T 4F, CK, CRP, TSH3, ESR, CBC, CMP #### [place] [address] [place] #### HBCAB, JUSTINA, HBSAG, ALDOLASE, HCV RX PCR, HBSAB, THYGLOB AB, CHROMATIN, C4, C3, CH50, RPR W RFX, TPO, KERRI #### [facility] , Potassium [Moles/Vol] 4.3 mmol/L Normal 3.5-5.1 [facility] Comment on above: Performed By: #### T 4F, CK, CRP, TSH3, ESR, CBC, CMP #### [address] #### HBCAB, JUSTINA, HBSAG, ALDOLASE, HCV RX PCR, HBSAB, THYGLOB AB, CHROMATIN, C4, C3, CH50, RPR W RFX, TPO, KERRI #### [facility] , Protein [Mass/Vol] 6.4 g/dL Normal 6.4-8.9 [facility] Comment on above: Performed By: #### T 4F, CK, CRP, TSH3, ESR, CBC, CMP #### [address] #### HBCAB, JUSTINA, HBSAG, ALDOLASE, HCV RX PCR, HBSAB, THYGLOB AB, CHROMATIN, C4, C3, CH50, RPR W RFX, TPO, KERRI #### [facility] , Sodium [Moles/Vol] 141 mmol/L Normal 136-145 [facility] Comment on above: Performed By: #### T 4F, CK, CRP, TSH3, ESR, CBC, CMP #### [address] #### HBCAB, JUSTINA, HBSAG, ALDOLASE, HCV RX PCR, HBSAB, THYGLOB AB, CHROMATIN, C4, C3, CH50, RPR W RFX, TPO, KERRI #### [facility] , Urea nitrogen [Mass/Vol] 22 mg/dL Normal 7-25 [facility] Comment on above: Performed By: #### T 4F, CK, CRP, TSH3, ESR, CBC, CMP #### [place] [address] [place] #### HBCAB, JUSTINA, HBSAG, ALDOLASE, HCV RX PCR, HBSAB, THYGLOB AB, CHROMATIN, C4, C3, CH50, RPR W RFX, TPO, KERRI #### [facility] , Creatine Kinaseon 07-31-2024 CK [Catalytic activity/Vol] 23 U/L Low 30-223 [facility] Comment on above: Result Comment: PERF ORMED BY: [place] [address] PATHOLOGIST HARDBOARD GRINDER SARAHI JUAREZ M.D. Performed By: #### T 4F, CK, CRP, TSH3, ESR, CBC, CMP #### [facility] [address] [place] [address] #### HBCAB, JUSTINA, HBSAG, ALDOLASE, HCV RX PCR, HBSAB, THYGLOB AB, CHROMATIN, C4, C3, CH50, RPR W RFX, TPO, KERRI #### [facility] , Creatine kinase [Enzymatic a ctivity/volume] in Serum or PlasmaOrdered By: Alvaro Ham on 07-31-2024 CK [Catalytic activity/Vol] Creatine kinase [Enzymatic activity/volume] in Serum or Plasma Low 30-223 [facility] Creatinine [Mass/volume] in Serum or PlasmaOrdered By: Alvaro Ham on 07-31-2024 Creatinine [Mass/Vol] Creatinine [Mass/volume] in Serum or Plasma High 0.60-1.20 [facility] Eosinophils Auto (Bld) [#/Vo l]Ordered By: Alvaro Ham on 07-31-2024 Eosinophils (Bld) [#/Vol] Automated eosinophil count 0.0-0.45 [facility] Eosinophils/100 WBC Auto (Bl d)Ordered By: Alvaro Ham on 07-31-2024 Eosinophils/100 WBC (Bld) Automated eosinophil % . [facility] Erythrocyte Sedimentation Ra chapincito 07-31-2024 ESR (Bld) [Velocity] 58 mm/h High 0-29 [facility] Comment on above: Result Comment: PERF ORMED BY: [place] [address] PATHOLOGIST HARDBOARD GRINDER SARAHI JUAREZ M.D. Performed By: #### T 4F, CK, CRP, TSH3, ESR, CBC, CMP #### [facility] [address] [place] [address] [place] #### HBCAB, JUSTINA, HBSAG, ALDOLASE, HCV RX PCR, HBSAB, THYGLOB AB, CHROMATIN, C4, C3, CH50, RPR W RFX, TPO, KERRI #### [facility] , Erythrocyte distribution wid th Auto (RBC) [Ratio]Ordered By: Alvaro Ham on 07-31-2024 Erythrocyte distribution width (RBC) [Ratio] Erythrocyte distribution width [Ratio] by Automated count 11.9-15.3 [facility] Erythrocyte sedimentation ra te by Photometric methodOrdered By: Alvaro Ham on 07-31-2024 ESR Photometric method (Bld) [Velocity] Erythrocyte sedimentation rate by Photometric method High 0-29 [facility] Free T4 (Free Thyroxine)on 0 07-31-2024 Free T4 [Mass/Vol] 0.80 ng/dL Normal 0.61-1.12 [facility] Comment on above: Performed By: #### T 4F, CK, CRP, TSH3, ESR, CBC, CMP #### [facility] [address] [place] [address] [place] #### HBCAB, JUSTINA, HBSAG, ALDOLASE, HCV RX PCR, HBSAB, THYGLOB AB, CHROMATIN, C4, C3, CH50, RPR W RFX, TPO, KERRI #### [facility] , Globulin Calc (S) [Mass/Vol] Ordered By: Alvaro Ham on 07-31-2024 Globulin (S) [Mass/Vol] Serum globulin measurement by calculation (mass/volume) [facility] Glucose [Mass/volume] in Ser um or PlasmaOrdered By: Alvaro Ham on 07-31-2024 Glucose [Mass/Vol] Glucose [Mass/volume] in Serum or Plasma 70-100 [facility] Comment on above: ADA recommended refe rence rangeRandom Glucose Reference Range is dependent on time and content of last meal. Glucose of more than 200 mg/dL in a nonstressed, ambulatory subject supports the diagnosis of Diabetes Mellitus. Hematocrit Auto (Bld) [Volum e fraction]Ordered By: Alvaro Ham on 07-31-2024 Hematocrit (Bld) [Volume fraction] Hematocrit [Volume Fraction] of Blood by Automated count 34.0-46.4 [facility] Hemoglobin [Mass/volume] in BloodOrdered By: Alvaro Ham on 07-31-2024 Hemoglobin (Bld) [Mass/Vol] Hemoglobin [Mass/volume] in Blood 11.8-15.4 [facility] Hep C Ab wRfx to Qnt PCRon 0 07-31-2024 Hepatitis C Virus Antibody Non-Reactive Normal Non Reactive [facility] Comment on above: Performed By: #### T 4F, CK, CRP, TSH3, ESR, CBC, CMP #### [place] [address] [place] #### HBCAB, JUSTINA, HBSAG, ALDOLASE, HCV RX PCR, HBSAB, THYGLOB AB, CHROMATIN, C4, C3, CH50, RPR W RFX, TPO, KERRI #### [facility] , Interpretation Hepatitis C Comment Normal . [facility] Comment on above: Result Comment: Not infected with HCV unless early or acute infection is suspected (which may be delayed in an immunocompromised individual), or other evidence exists to indicate HCV infection. Performed By: #### T 4F, CK, CRP, TSH3, ESR, CBC, CMP #### [place] [address] [place] #### HBCAB, JUSTINA, HBSAG, ALDOLASE, HCV RX PCR, HBSAB, THYGLOB AB, CHROMATIN, C4, C3, CH50, RPR W RFX, TPO, KERRI #### [facility] , Hepatitis B Core Antibodyon 07-31-2024 Hepatitis B Core Antibody Negative Normal Negative [facility] Comment on above: Result Comment: Perf ormed at: - [facility] [address] [id number] Senior Research Consultant: Iain Siegel PhD, Phone: [phone] Performed By: #### T 4F, CK, CRP, TSH3, ESR, CBC, CMP #### [place] [address] [place] #### HBCAB, JUSTINA, HBSAG, ALDOLASE, HCV RX PCR, HBSAB, THYGLOB AB, CHROMATIN, C4, C3, CH50, RPR W RFX, TPO, KERRI #### [facility] , Hepatitis B Surface Antibody on 07-31-2024 Hepatitis B Surface Antibody Non-Reactive Normal . [facility] Comment on above: Result Comment: Non Reactive: Not immune to HBV infection. Equivocal: Unable to determine if anti-HBs is present at levels consistent with immunity. Reactive: Anti-HBs concentration detected at greater than 10 mIU/mL. Individual is considered to be immune to infection with HBV. Performed By: #### T 4F, CK, CRP, TSH3, ESR, CBC, CMP #### [facility] [address] [place] [address] #### HBCAB, JUSTINA, HBSAG, ALDOLASE, HCV RX PCR, HBSAB, THYGLOB AB, CHROMATIN, C4, C3, CH50, RPR W RFX, TPO, KERRI #### [facility] , Hepatitis B Surface Antigeno n 07-31-2024 HBsAg Screen Negative Normal Negative [facility] Comment on above: Result Comment: PERF ORMED BY: [place] [address] PATHOLOGIST HARDBOARD GRINDER SARAHI JUAREZ M.D. Performed By: #### T 4F, CK, CRP, TSH3, ESR, CBC, CMP #### [facility] [address] [place] [address] [place] #### HBCAB, JUSTINA, HBSAG, ALDOLASE, HCV RX PCR, HBSAB, THYGLOB AB, CHROMATIN, C4, C3, CH50, RPR W RFX, TPO, KERRI #### [facility] , Leukocytes [#/volume] correc umang for nucleated erythrocytes in Blood by Automated counOrdered By: Alvaro Ham on 07-31-2024 WBC corrected for nucl RBC Auto (Bld) [#/Vol] Leukocytes [#/volume] corrected for nucleated erythrocytes in Blood by Automated coun 3.8-11.6 [facility] Lymphocytes Auto (Bld) [#/Vo l]Ordered By: Alvaro Ham on 07-31-2024 Lymphocytes (Bld) [#/Vol] Lymphocytes [#/volume] in Blood by Automated count 1.00-4.8 [facility] Lymphocytes/100 WBC Auto (Bl d)Ordered By: Alvaro Ham on 07-31-2024 Lymphocytes/100 WBC (Bld) Lymphocytes/100 leukocytes in Blood by Automated count . [facility] MCH Auto (RBC) [Entitic mass ]Ordered By: Alvaro Ham on 07-31-2024 MCH (RBC) [Entitic mass] MCH [Entitic mass] by Automated count High 24.7-34.3 [facility] MCHC Auto (RBC) [Mass/Vol]Or dered By: Alvaro Ham on 07-31-2024 MCHC (RBC) [Mass/Vol] MCHC [Mass/volume] by Automated count 32.0-35.0 [facility] MCV Auto (RBC) [Entitic vol] Ordered By: Alvaro Ham on 07-31-2024 MCV (RBC) [Entitic vol] MCV [Entitic vol ume] by Automated count High 80-100 [facility] Monocytes Auto (Bld) [#/Vol] Ordered By: Alvaro Ham on 07-31-2024 Monocytes (Bld) [#/Vol] Automated blood monocyte count 0.0-0.8 [facility] Monocytes/100 WBC Auto (Bld) Ordered By: Alvaro Ham on 07-31-2024 Monocytes/100 WBC (Bld) Automated monocyte % . [facility] Neutrophils Auto (Bld) [#/Vo l]Ordered By: Alvaro Ham on 07-31-2024 Neutrophils (Bld) [#/Vol] Neutrophils [#/volume] in Blood by Automated count 1.8-7.7 [facility] Neutrophils/100 WBC Auto (Bl d)Ordered By: Alvaro Ham on 07-31-2024 Neutrophils/100 WBC (Bld) Automated neutrophil % . [facility] No Panel InformationOrdered By: Alvaro Ham on 07-31-2024 Estimated GFR (CKD-EPI) 38.332 mL/Min [facility] Creatinine Clearance (Chem N/A [facility] Nucleated erythrocytes [Pres ence] in Blood by Automated countOrdered By: Alvaro Ham on 07-31-2024 Nucleated RBC Auto Ql (Bld) Nucleated erythrocytes [Presence] in Blood by Automated count 0-0.5 [facility] Platelet mean volume Auto (B ld) [Entitic vol]Ordered By: Alvaro Ham on 07-31-2024 Platelet mean volume (Bld) [Entitic vol] Platelet mean volume [Entitic volume] in Blood by Automated count 6.3-10.7 [facility] Platelets Auto (Bld) [#/Vol] Ordered By: Alvaro Ham on 07-31-2024 Platelets (Bld) [#/Vol] Platelets [#/vol ume] in Blood by Automated count 150-450 [facility] Potassium [Moles/volume] in Serum or PlasmaOrdered By: Alvaro Ham on 07-31-2024 Potassium [Moles/Vol] Potassium [Moles/volume] in Serum or Plasma 3.5-5.1 [facility] Protein [Mass/volume] in Ser um or PlasmaOrdered By: Alvaro Ham on 07-31-2024 Protein [Mass/Vol] Protein [Mass/volume] in Serum or Plasma 6.4-8.9 [facility] RBC Auto (Bld) [#/Vol]Ordere d By: Alvaro Ham on 07-31-2024 RBC (Bld) [#/Vol] Erythrocytes [#/volume] in Blood by Automated count Low 3.60-5.00 [facility] RPR w/rfx to Quant TP Abson 07-31-2024 RPR, Rfx Quant RPR Non-Reactive Normal Non Reactive [facility] Comment on above: Result Comment: Perf ormed at: CB - [facility] [address] [id number] Senior Research Consultant: Iain Siegel PhD, Phone: [phone] PERFORMED BY: [address] [place] [address] PATHOLOGIST HARDBOARD GRINDER SARAHI JUAREZ M.D. Performed By: #### T 4F, CK, CRP, TSH3, ESR, CBC, CMP #### [facility] [address] [place] [address] #### HBCAB, JUSTINA, HBSAG, ALDOLASE, HCV RX PCR, HBSAB, THYGLOB AB, CHROMATIN, C4, C3, CH50, RPR W RFX, TPO, KERRI #### [facility] , Serum or plasma albumin/glob ulin mass ratioOrdered By: Alvaro Ham on 07-31-2024 Albumin/Globulin [Mass ratio] Serum or plasma albumin/globulin mass ratio [facility] Serum or plasma anion gap de terminationOrdered By: Alvaro Ham on 07-31-2024 Anion gap [Moles/Vol] Serum or plasma anion gap determination 6.0-15.0 [facility] Sodium [Moles/volume] in Ser um or PlasmaOrdered By: Alvaro Ham on 07-31-2024 Sodium [Moles/Vol] Sodium [Moles/volume] in Serum or Plasma 136-145 [facility] Thyroid Peroxidase Antibodie son 07-31-2024 Thyroid Peroxidase Antibodies 12 [IU]/mL Normal 0-34 [facility] Comment on above: Result Comment: Perf ormed at: - [facility] [address] [id number] Senior Research Consultant: Iain Siegel PhD, Phone: [phone] Performed By: #### T 4F, CK, CRP, TSH3, ESR, CBC, CMP #### [place] [address] [place] #### HBCAB, JUSTINA, HBSAG, ALDOLASE, HCV RX PCR, HBSAB, THYGLOB AB, CHROMATIN, C4, C3, CH50, RPR W RFX, TPO, KERRI #### [facility] , Thyroid Stimulating Hormoneo n 07-31-2024 TSH Qn 2.45 m[IU]/L Normal 0.45-5.33 [facility] Comment on above: Result Comment: PERF ORMED BY: [place] [address] PATHOLOGIST HARDBOARD GRINDER SARAHI JUAREZ M.D. Performed By: #### T 4F, CK, CRP, TSH3, ESR, CBC, CMP #### [facility] [address] #### HBCAB, JUSTINA, HBSAG, ALDOLASE, HCV RX PCR, HBSAB, THYGLOB AB, CHROMATIN, C4, C3, CH50, RPR W RFX, TPO, KERRI #### [facility] , Thyrotropin [Units/volume] i n Serum or PlasmaOrdered By: Alvaro Ham on 07-31-2024 TSH Qn Thyrotropin [Units/volume] in Serum or Plasma 0.45-5.33 [facility] Thyroxine (T4) free [Mass/vo lume] in Serum or PlasmaOrdered By: Alvaro Ham on 07-31-2024 Free T4 [Mass/Vol] Thyroxine (T4) free [Mass/volume] in Serum or Plasma 0.61-1.12 [facility] Urea nitrogen [Mass/volume] in Serum or PlasmaOrdered By: Alvaro Ham on 07-31-2024 Urea nitrogen [Mass/Vol] Urea nitrogen [Mass/volume] in Serum or Plasma 7 [facility] WBC Auto (Bld) [#/Vol]Ordere d By: Alvaro Ham on 07-31-2024 WBC (Bld) [#/Vol] Leukocytes [#/volume] in Blood by Automated count 3.8-11.6 [facility] Office Visiton 05-21-2024 Follow-up visit [id number] Linda Nascimento 1950 F Date Provider Department Center 05/21/2024 ENOCH RAMIREZ JUAN [facility] Family History Problem Relation Age of Onset Lung cancer Mother Stroke Father Family Status - Relation Status Age at Mother Father Level of Service:73451 [place] OFFICE/OUTPATIENT ESTABLISHED LOW MDM 20 MIN Normal [facility] Herpes Simplex Virus By PCRo n 05-07-2024 HSV 1 Subtype by PCR Not detected Normal [facility] Comment on above: Order Comment: CALL doctor LB474 tel. [phone], FAX [phone] CALL doctor LB474 tel. [phone], FAX [phone] Result Comment: The specimen submitted for testing did not meet [facility] submission guidelines. Testing was performed on a specimen that did not meet validated specimen type requirements. Performance characteristics of this assay may be affected. Interpret results with caution. Please refer to the [facility] Test Directory for information on specimen acceptability: [email or web address] Performed By: #### A 0095 #### [facility] [address] [place] [address] HSV 2 Subtype by PCR Not detected Normal [facility] Comment on above: Order Comment: CALL doctor LB474 tel. [phone], FAX [phone] CALL doctor LB474 tel. [phone], FAX [phone] Result Comment: The specimen submitted for testing did not meet [facility] submission guidelines. Testing was performed on a specimen that did not meet validated specimen type requirements. Performance characteristics of this assay may be affected. Interpret results with caution. Please refer to the [facility] Test Directory for information on specimen acceptability: [email or web address] INTERPRETIVE INFORMATION: HSV-1 and HSV-2 Subtype by PCR A negative result does not rule out the presence of PCR inhibitors in the patient specimen or test-specific nucleic acid in concentrations below the level of detection by this test. This test was developed and its performance characteristics determined by [facility]. It has not been cleared or approved by the [place] Food and Drug Administration. This test was performed in a CLIA certified laboratory and is intended for clinical purposes. Performed By: [facility] [address] [place] [address] [employer] Skimmer: Rodrigo Milner MD, PhD [place] Number: [id number] Performed By: #### A 0095 #### [facility] [address] [place] [address] Rejection Notificationon Reason see below [facility] Comment on above: Order Comment: CALL doctor LB474 tel. [phone], FAX [phone] CALL doctor LB474 tel. [phone], FAX [phone] Result Comment: Unab le to perform testing; specimen quantity not sufficient. To perform testing the specimen will need to be recollected. QNS Performed By: #### R EJEC #### [facility] [address] [place] [address] Rejected Test [id number] [facility] Comment on above: Order Comment: CALL doctor LB474 tel. [phone], FAX [phone] CALL doctor LB474 tel. [phone], FAX [phone] Performed By: #### R EJEC #### [facility] [address] [place] [address] [facility] Miscellaneous test 1on 05-03-2024 [facility] [id number] [facility] Comment on above: Order Comment: CALL doctor LB474 tel. [phone], FAX [phone] Performed By: #### 9 7163 #### [facility] [address] [place] [address] Culture, Wound Aerobic, Anae robicon 05-03-2024 Culture, Wound Aerobic, Anaerobic ORDER#: [id number] ORDERED BY: MICHELLE QUINTERO SOURCE: Face Left eye ocular fluid COLLECTED: 05/03/24 07:26 ANTIBIOTICS AT SYLVIA.: RECEIVED : 05/03/24 07:39 [facility] [phone], FAX [phone] Culture, Wound Aerobic, Anaerobic FINAL 05/08/24 08:22 Direct Exam: NO NEUTROPHILS SEEN Direct Exam: NO ORGANISMS SEEN Cult,Aerobe/Anaerobe : NO GROWTH 5 DAYS Performed at [email or web address] [address] [address] ([phone] [facility] Comment on above: Performed By: #### I CWAN #### [facility] [address] [place] [address] Herpes Simplex Virus By PCRo n 05-03-2024 Herpes Simplex Virus Subtype Source eye [facility] Comment on above: Order Comment: CALL doctor LB474 tel. [phone], FAX [phone] CALL doctor LB474 tel. [phone], FAX [phone] Result Comment: ocul ar fld Performed By: #### A 0095 #### [facility] [address] [place] [id number] Office Visiton 10-31-2023 Follow-up visit [id number] Azam Lisa 1950 F Date Provider Department Center 10/31/2023 ENOCH RAMIREZ C[facility] Family History Problem Relation Age of Onset Lung cancer Mother Stroke Father Family Status - Relation Status Age at Mother Father Level of Service:69401 [place] OFFICE/OUTPATIENT ESTABLISHED MOD MDM 30 MIN [facility] 36on 10-17-2023 36 Let's keep her medications the same. Thanks [facility] 36 Please ask what her current weight is. [facility] 36on 08-01-2023 36 Please confirm what her dose of lasix is. It looks like she is on 40mg daily. If this is the dose, please have her increase to 40mg BID x5 days then start a higher dose of lasix at 60mg daily. Follow-up BMP in 2 weeks. They can check her weight either every other day or 3 times a week. Thanks [facility] 36on 07-27-2023 36 Regarding note from [facility] with patient's weights and BP's and mention [...] and faxed back to [facility] CBC AUTO DIFFon 10-14-2022 BASO # 0.1 103/ul Normal 0.0-0.1 [facility] Comment on above: Performed By: #### C BC ####[facility] [address] [place] [id number]. Slick Broderick Basophils/100 WBC (Bld) 0.6 % Normal 0.2-2.0 [facility] Comment on above: Performed By: #### C BC ####[facility] X[address] [place] [id number]. Slick Broderick EO # 0.4 103/ul Normal 0.0-0.7 [facility] Comment on above: Performed By: #### C BC ####[facility] [address] [place], [place] [address]Dr. Slick Broderick Eosinophils/100 WBC (Bld) 3.9 % Normal 0.9-7.0 [facility] Comment on above: Performed By: #### C BC ####[facility] K[address] [place], [place] [address]Dr. Slick Broderick Erythrocyte distribution width (RBC) [Ratio] 13.2 % Normal 11.0-15.0 [facility] Comment on above: Performed By: #### C BC ####[facility] [address] [place], [place] [address]Dr. Slick Broderick Hematocrit (Bld) [Volume fraction] 32.4 % Critically low 36.0-48.0 [facility] Comment on above: Performed By: #### C BC ####[facility] [address] [place], [place] [id number]. Slick Broderick Hemoglobin (Bld) [Mass/Vol] 10.4 g/dL Critically low 12.0-16.0 [facility] Comment on above: Performed By: #### C BC ####[facility] [address] [place] [id number]. Slick Broderick IG # 0.19 10e3/ul Critically high 0.00-0.03 [facility] Comment on above: Performed By: #### C BC ####[facility] [address] [place], [place] [address]Dr. Slick Broderick IG % 2.1 % Critically high 0.0-0.5 [facility] Comment on above: Performed By: #### C BC ####[facility] [address] [place] [id number]. Slick Broderick LYMPH # 1.0 103/ul Critically low 1.2-3.8 [facility] Comment on above: Performed By: #### C BC ####[facility] P[address] [place] [id number]. Slick Broderick Lymphocytes/100 WBC (Bld) 11.4 % Critically low 20.5-60.0 [facility] Comment on above: Performed By: #### C BC ####[facility] [address] [place] [id number]. Slick Broderick MANUAL DIFF REQ NO Normal [facility] Comment on above: Performed By: #### C BC ####[facility] [address] [place] [id number]. Slick Broderick MCH (RBC) [Entitic mass] 32.0 pg Normal 26.7-34.0 [facility] Comment on above: Performed By: #### C BC ####[facility] [address]ia[address] [place] [id number]. Slick Broderick MCHC (RBC) [Mass/Vol] 32.1 g/dL Normal 29.9-35.2 [facility] Comment on above: Performed By: #### C BC ####[facility] [address] [place] [id number]. Slick Broderick MCV (RBC) [Entitic vol] 99.7 fL Critically high 81.0-99 .0 [facility] Comment on above: Performed By: #### C BC ####[facility] R[address]tp[address] [place] [id number]. Slick Broderick MONO # 1.0 103/ul Critically high 0.3-0.8 [facility] Comment on above: Performed By: #### C BC ####[facility] [address]iusu[address]tt[address] [place] [id number]. Slick Broderick Monocytes/100 WBC (Bld) 10.8 % Normal 1.7-12.0 [facility] Comment on above: Performed By: #### C BC ####[facility] I[address]zrqckh[address] [place] [id number]. Slick Broderick NEUT # 6.4 103/ul Normal 1.4-6.5 [facility] Comment on above: Performed By: #### C BC ####[facility] L[address] [place] [id number]. Slick Broderick Neutrophils/100 WBC (Bld) 71.2 % Normal 43.0-75.0 [facility] Comment on above: Performed By: #### C BC ####[facility] [address] [place] [address]Dr. Slick Broderick Platelet mean volume (Bld) [Entitic vol] 9.8 fL Normal 9.5-13.5 [facility] Comment on above: Performed By: #### C BC ####[facility] [address] [place] [address]Dr. Slick Broderick PLT 174 103/ul Normal 150-450 [facility] Comment on above: Performed By: #### C BC ####[facility] [address] [place], [place] [address]Dr. Slick Broderick RBC 3.25 106/ul Critically low 4.20-5.40 [facility] Comment on above: Performed By: #### C BC ####[facility] [address] [place] [address]Dr. Slick Broderick WBC 8.9 103/ul Normal 4.0-11.0 [facility] Comment on above: Performed By: #### C BC ####[facility] Ve[address] [place] [id number]. Slick Broderick CRPon 10-14-2022 CRP 0.5 mg/dL Normal <=1.0 [facility] Comment on above: Performed By: #### C RP, BMP ####[facility] [address]es[address] [place] [id number]. Slick Broderick D-DIMERon 10-14-2022 D-DIMER 0.86 mg/L FEU Critically high <=0.59 [facility] Comment on above: Performed By: #### D DIM ####[facility] [address] [place] [address]Dr. Slick Broderick D-DIMER COMMENTS SEE BELOW Normal [facility] Comment on above: Result Comment: Incr eases [...] generalized hospitalization. Performed By: #### D DIM ####[facility] [address] [place], [place] [address]Dr. Slick Broderick PROF CHEM 8 (BAS METB)on Anion gap [Moles/Vol] 10.1 mmol/L Normal [facility] Comment on above: Performed By: #### C RP, BMP ####[facility] [address] [place] [address]Dr. Slick Broderick Calcium [Mass/Vol] 9.3 mg/dL Normal 8.5-10.1 [facility] Comment on above: Performed By: #### C RP, BMP ####[facility] [address] [place], [place] [address]Dr. Slick Broderick Chloride [Moles/Vol] 98 mmol/L Normal 98-107 [facility] Comment on above: Performed By: #### C RP, BMP ####[facility] Qvnwvwc[address]qc26[address] [place] [address]Dr. Slick Broderick CO2 [Moles/Vol] 30.3 mmol/L Normal 21.0-32.0 [facility] Comment on above: Performed By: #### C RP, BMP ####[facility] [address] [place] [address]Dr. Slick Broderick Creatinine [Mass/Vol] 2.15 mg/dL Critically high 0.55-1.02 [facility] Comment on above: Performed By: #### C RP, BMP ####[facility] [address]xc[address] [place] [id number]. Slick Broderick EGFR-AF DANISH 27 mL/min/1.73m2 Critically low >=60 [facility] Comment on above: Performed By: #### C RP, BMP ####[facility] [address]xgr[address] [place] [id number]. Slick Broderick EGFR-NON AF DANISH 22 mL/min/1.73m2 Critically low >=60 [facility] Comment on above: Performed By: #### C RP, BMP ####[facility] [address] [place] [address]Dr. Meaagnwendie Davie Glucose [Mass/Vol] 116 mg/dL Critically high 74-106 [facility] Comment on above: Performed By: #### C RP, BMP ####[facility] Cd[address]ftax9[address] [place] [address]Dr. Slick Broderick Potassium [Moles/Vol] 4.4 mmol/L Normal 3.5-5.1 [facility] Comment on above: Performed By: #### C RP, BMP ####[facility] [address] [place], [place] [address]Dr. Slick Broderick Sodium [Moles/Vol] 134 mmol/L Critically low 136-145 [facility] Comment on above: Performed By: #### C RP, BMP ####[facility] [address] [place] [address]Dr. Meaganwendie Davie Urea nitrogen [Mass/Vol] 33.0 mg/dL Critically high 7.0-18.0 [facility] Comment on above: Performed By: #### C RP, BMP ####[facility] [address] [place] [address]Dr. Slick Broderick Urea nitrogen/Creatinine [Mass ratio] 15.3 mg/mg Normal [facility] Comment on above: Performed By: #### C RP, BMP ####[facility] [address] [place] [address]Dr. Slick Broderick US JENNY DOP LEG LTon 10-15-19 23 US JENNY DOP LEG LT Normal [facility] XR FEMUR LTon 10-14-2022 XR FEMUR LT Normal [facility] ECHOCARDIO M/2D COMPLETEon 0 09-14-2022 ECHOCARDIO M/2D COMPLETE Normal [facility] PRBC LEUKOREDUCEDon 06-09-20 22 PRBC LEUKOREDUCED Normal [facility] Comment on above: Performed By: #### P RBC ####[facility] [address] [place] [address]Dr. Slick Broderick BNPon 04-23-2022 Natriuretic peptide B (Bld) [Mass/Vol] 49510.0 pg/mL Critically high <=900.0 [facility] Comment on above: Performed By: #### C MP, CMADM, BNP ####[facility] [address] [place] [address]Dr. Slick Broderick CARDIAC REYMUNDO ADMITon 022 CK [Catalytic activity/Vol] 121 U/L Normal 26-192 [facility] Comment on above: Performed By: #### C MP, CMADM, BNP ####[facility] [address] [place] [address]Dr. Slick Broderick CK.MB [Mass/Vol] 5.67 ng/mL Critically high <=3.60 [facility] Comment on above: Performed By: #### C MP, CMADM, BNP ####[facility] [address] [place] [address]Dr. Slick Broderick HSTROP 3667.9 pg/mL Critically high 4.0-51.3 [facility] Comment on above: Result Comment: CUT- OFF POINTS HAVE BEEN ESTABLISHED BASED ON THE FOURTH UNIVERSAL DEFINITIONS OF MYOCARDIALINFARCTION. THE UPPER REFERENCE LIMIT (URL) OF TROPONIN, DEFINED THE 99TH PERCENTILE OFcTnI DISTRIBUTION IN A REFERENCE POPULATION, HAS BEEN CONFIRMED THE DECISION THRESHOLDFOR DC DIAGNOSIS. Performed By: #### C MP, CMADM, BNP ####[facility] [address] [place] [address]Dr. Slick Broderick NEHEMIAH 225 ng/mL Critically high 9-82 [facility] Comment on above: Performed By: #### C MP, CMADM, BNP ####[facility] J[address]ax[address] [place] [id number]. Slick Broderick CBC AUTO DIFFon 04-23-2022 BASO # 0.0 103/ul Normal 0.0-0.1 [facility] Comment on above: Performed By: #### C BC ####[facility] [address]tc[address] [place] [address]Dr. Meaganwendie Broderick Basophils/100 WBC (Bld) 0.3 % Normal 0.2-2.0 [facility] Comment on above: Performed By: #### C BC ####[facility] [address] [place], [place] [address]Dr. Meaganwendie Broderick EO # 0.0 103/ul Normal 0.0-0.7 [facility] Comment on above: Performed By: #### C BC ####[facility] On[address] [place], [place] [address]Dr. Meaganwendie Broderick Eosinophils/100 WBC (Bld) 0.3 % Critically low 0.9-7.0 [facility] Comment on above: Performed By: #### C BC ####[facility] [address] [place], [place] [address]Dr. Slick Davie Erythrocyte distribution width (RBC) [Ratio] 14.0 % Normal 11.0-15.0 [facility] Comment on above: Performed By: #### C BC ####[facility] [address] [place], [place] [address]Dr. Meaganwendie Broderick Hematocrit (Bld) [Volume fraction] 21.9 % Critically low 36.0-48.0 [facility] Comment on above: Performed By: #### C BC ####[facility] [address] [place], [place] [address]Dr. Slick Broderick Hemoglobin (Bld) [Mass/Vol] 7.1 g/dL Critically low 12.0-16.0 [facility] Comment on above: Performed By: #### C BC ####[facility] [address] [place], [place] [address]Dr. Slick Broderick IG # 0.04 10e3/ul Critically high 0.00-0.03 [facility] [facility] Comment on above: Performed By: #### C BC ####[facility] Zdbvpnwwjp3331 [place] [address]DrEmma Slick Davie IG % 0.4 % Normal 0.0-0.5 [facility] Comment on above: Performed By: #### C BC ####[facility] Xznaejbzfo2610 [place] [address]DrEmma Rhodeswendie Davie LYMPH # 0.8 103/ul Critically low 1.2-3.8 [facility] Comment on above: Performed By: #### C BC ####[facility] Smitqcvgzq9190 [place] [address]DrEmma Broderick Lymphocytes/100 WBC (Bld) 7.7 % Critically low 20.5-60.0 [facility] Comment on above: Performed By: #### C BC ####[facility] Cfhghhbzsa[address] [place], [place] [address]DrEmma Broderick MANUAL DIFF REQ NO Normal [facility] Comment on above: Performed By: #### C BC ####[facility] Ulexsjadqg9048 [place] [address]DrEmma Meaganwendie Broderick MCH (RBC) [Entitic mass] 29.3 pg Normal 26.7-34.0 [facility] Comment on above: Performed By: #### C BC ####[facility] Hiklvjfvwq5290 [place] [address]DrEmma Broderick MCHC (RBC) [Mass/Vol] 32.4 g/dL Normal 29.9-35.2 [facility] Comment on above: Performed By: #### C BC ####[facility] Wfmuqgzdme1494 [place] [address]DrEmma Broderick MCV (RBC) [Entitic vol] 90.5 fL Normal 81.0-99.0 [facility] Comment on above: Performed By: #### C BC ####[facility] Hyffdijvmr5497 [place] [address]DrEmma Broderick MONO # 1.0 103/ul Critically high 0.3-0.8 [facility] Comment on above: Performed By: #### C BC ####[facility] Wkzymqwmpg2600 [place] [address]Dr. Slick Broderick Monocytes/100 WBC (Bld) 9.6 % Normal 1.7-12.0 [facility] Comment on above: Performed By: #### C BC ####[facility] Mfzoosmsit0838 [place] [address]Dr. Slick Broderick NEUT # 8.6 103/ul Critically high 1.4-6.5 [facility] Comment on above: Performed By: #### C BC ####[facility] Nztlytzmgv3846 [place] [address]Dr. Slick Broderick Neutrophils/100 WBC (Bld) 81.7 % Critically high 43.0-75.0 [facility] Comment on above: Performed By: #### C BC ####[facility] Uwubwvvcwx[address] [place], [place] [address]Dr. Slick Broderick Platelet mean volume (Bld) [Entitic vol] 10.0 fL Normal 9.5-13.5 [facility] Comment on above: Performed By: #### C BC ####[facility] Dgxdomxtru6892 [place] [address]Dr. Slick Broderick PLT 195 103/ul Normal 150-450 [facility] Comment on above: Performed By: #### C BC ####[facility] Rdonksjnii9452 [place] [address]Dr. Slick Broderick RBC 2.42 106/ul Critically low 4.20-5.40 [facility] Comment on above: Performed By: #### C BC ####[facility] Eyfkzeeokh3099 [place] [id number]. Slick Broderick WBC 10.5 103/ul Normal 4.0-11.0 [facility] Comment on above: Performed By: #### C BC ####[facility] Tgvdzzfxte9528 [place] [phone]. Slick Broderick CT HEAD WO CONon 04-23-2022 CT HEAD WO CON Normal [facility] CULTURE BLOODon 04-23-2022 Microscopic examination of blood, culture Culture Observations: NO GROWTH AT 5 DAYS. Normal [facility] Comment on above: Performed By: #### B LDCX2 ####[facility] Pmexfeyyrf7530 [place] [phone] Broderick Microscopic examination of blood, culture Culture Observations: NO GROWTH AT 5 DAYS. Normal [facility] Comment on above: Performed By: #### B LDCX1 ####[facility] Koldiovzjg5012 [place] [phone] Broderick Covid-19 PCR (CVDTB)on 04-12 SARS-CoV-2 (COVID-19) RNA DONNIE+probe Ql (Unsp spec) Not detected Normal NOT DETECTED [facility] Comment on above: Result Comment: [...] for this test is supported by the [place] of [employer] and Human Service's declaration that [...] be used). Performed By: #### C VDTBH ####[facility] Vbyqqbbtjm3721 [place] [address]DrEmma Broderick LACTATE/LACTIC ACIDon 2021 Lactate [Moles/Vol] 1.2 mmol/L Normal 0.4-1.9 [facility] Comment on above: Performed By: #### L ACT ####[facility] Drwoovwuwx6382 [place] [phone]. Yilan Broderick PROF 14(COMP METB)on 04-23- 022 Albumin [Mass/Vol] 2.9 g/dL Critically low 3.4-5.0 [facility] Comment on above: Performed By: #### C MP, CMADM, BNP ####[facility] Orkhzophlg7713 [place] [address]Dr. Slick Broderick Albumin/Globulin [Mass ratio] 0.9 {ratio} Normal [facility] Comment on above: Performed By: #### C MP, CMADM, BNP ####[facility] Qeppnshfqk6778 [place] [address]Dr. Slick Broderick ALP [Catalytic activity/Vol] 88 U/L Normal 46-116 [facility] Comment on above: Performed By: #### C MP, CMADM, BNP ####[facility] Jrspsyuggt6427 [place] [address]Dr. Slick Broderick ALT [Catalytic activity/Vol] 22 U/L Normal 14-59 [facility] Comment on above: Performed By: #### C MP, CMADM, BNP ####[facility] Kfprhyabiz6118 [place] [address]Dr. Slick Broderick Anion gap [Moles/Vol] 14.0 mmol/L Normal [facility] Comment on above: Performed By: #### C MP, CMADM, BNP ####[facility] Zixodezkbp9683 [place] [address]Dr. Slick Broderick AST [Catalytic activity/Vol] 26 U/L Normal 15-37 [facility] Comment on above: Performed By: #### C MP, CMADM, BNP ####[facility] Gkebwtuarb8460 [place] [address]Dr. Slick Broderick Bilirubin [Mass/Vol] 0.5 mg/dL Normal 0.2-1.0 [facility] Comment on above: Performed By: #### C MP, CMADM, BNP ####[facility] Blrefhfowd3979 [place] [address]Dr. Slick Broderick Calcium [Mass/Vol] 9.7 mg/dL Normal 8.5-10.1 [facility] Comment on above: Performed By: #### C MP, CMADM, BNP ####[facility] Hgccrcgsoj0231 [place] [address]Dr. Slick Broderick Chloride [Moles/Vol] 105 mmol/L Normal 98-107 [facility] Comment on above: Performed By: #### C MP, CMADM, BNP ####[facility] Vdljamcdag4432 [place] [address]Dr. Slick Broderick CO2 [Moles/Vol] 27.0 mmol/L Normal 21.0-32.0 [facility] Comment on above: Performed By: #### C MP, CMADM, BNP ####[facility] Cneindzika6[address] [place], [place] [address]Dr. Slick Broderick Creatinine [Mass/Vol] 1.57 mg/dL Critically high 0.55-1.02 [facility] Comment on above: Performed By: #### C MP, CMADM, BNP ####[facility] Evfnjfiqhs139[address] [place], [place] [address]Dr. Slick Broderick EGFR-AF DANISH 39 mL/min/1.73m2 Critically low >=60 [facility] Comment on above: Performed By: #### C MP, CMADM, BNP ####[facility] Cvwnfpdnwy97[address] [place], [place] [address]Dr. Slick Broderick EGFR-NON AF DANISH 32 mL/min/1.73m2 Critically low >=60 [facility] Comment on above: Performed By: #### C MP, CMADM, BNP ####[facility] Reiajaugjs1032 [place] [address]Dr. Slick Broderick Globulin (S) [Mass/Vol] 3.2 g/dL Normal [facility] Comment on above: Performed By: #### C MP, CMADM, BNP ####[facility] Nvorcgjmzi0[address] [place], [place] [address]Dr. Slick Broderick Glucose [Mass/Vol] 128 mg/dL Critically high 74-106 [facility] Comment on above: Performed By: #### C MP, CMADM, BNP ####[facility] Xbfsrlcgqp2089 [place] [address]Dr. Slick Broderick Potassium [Moles/Vol] 4.0 mmol/L Normal 3.5-5.1 [facility] Comment on above: Performed By: #### C MP, CMADM, BNP ####[facility] Zbkfolzmpy8010 [place] [address]Dr. Slick Broderick Protein [Mass/Vol] 6.1 g/dL Critically low 6.4-8.2 [facility] Comment on above: Performed By: #### C MP, CMADM, BNP ####[facility] Tgrurdxzvq4770 [place] [address]Dr. Slick Broderick Sodium [Moles/Vol] 142 mmol/L Normal 136-145 [facility] Comment on above: Performed By: #### C MP, CMADM, BNP ####[facility] Vemrgxdatq5604 [place] [address]Dr. Slick Broderick Urea nitrogen [Mass/Vol] 34.0 mg/dL Critically high 7.0-18.0 [facility] Comment on above: Performed By: #### C MP, CMADM, BNP ####[facility] Pbzlsgnwfq9091 [place] [address]Dr. Slick Broderick Urea nitrogen/Creatinine [Mass ratio] 21.7 mg/mg Normal [facility] Comment on above: Performed By: #### C MP, CMADM, BNP ####[facility] Gfjyjdbruh34[address] [place], [place] [address]Dr. Slick Broderick PROTIMEon 04-23-2022 INR Coag (PPP) [Relative time] 1.10 {INR} Normal [facility] Comment on above: Performed By: #### P T, PTT ####[facility] Fmlowvufme4[address] [place], [place] [address]Dr. Slick Broderick INR GUIDELINES SEE BELOW Normal [facility] Comment on above: Result Comment: EDMUND RED INR: 2.0 - 3.0 CONDITIONS NOT LISTED BELOW 2.5 - 3.5 FOR PROSTHETIC HEART VALVE REPLACEMENT 2.5 - 3.5 RECURRENT THROMBOSIS Performed By: #### P T, PTT ####[facility] Qabhwrhoce4956 [place] [phone]. Slick Broderick PT Coag (PPP) [Time] 11.8 s Critically high 9.0-11.6 [facility] Comment on above: Performed By: #### P T, PTT ####[facility] Doccxtyoag6950 [place] [phone]. Slick Davie PTTon 04-23-2022 aPTT Coag (Bld) [Time] 27.7 s Normal 22.3-36.2 [facility] Comment on above: Performed By: #### P T, PTT ####[facility] Fyjnvolyvj24[address] [place], [place] [address]Dr. Meaganwendie Broderick TYPE AND SCREENon 04-23-2022 TYPE AND SCREEN Negative Normal [facility] Comment on above: Performed By: #### T NS ####[facility] Miaguqfebx85[address] [place], [place] [address]Dr. Slick Davie XR CHEST 1 Von 04-23-2022 XR CHEST 1 V Normal [facility] CBC AUTO DIFFon 04-22-2022 BASO # 0.0 103/ul Normal 0.0-0.1 [facility] Comment on above: Performed By: #### C BC ####[facility] Xwllpobimf93[address] [place], [place] [address]Dr. Slick Broderick Basophils/100 WBC (Bld) 0.3 % Normal 0.2-2.0 [facility] Comment on above: Performed By: #### C BC ####[facility] Akduemxsuu[address] [place], [place] [address]Dr. Meaganwendie Broderick EO # 0.1 103/ul Normal 0.0-0.7 [facility] Comment on above: Performed By: #### C BC ####[facility] Rdmvqikcid5[address] [place], [place] [address]Dr. Meaganwendie Davie Eosinophils/100 WBC (Bld) 1.4 % Normal 0.9-7.0 [facility] Comment on above: Performed By: #### C BC ####[facility] Bmhxrpcbpj3[address] [place], [place] [address]Dr. Slick Broderick Erythrocyte distribution width (RBC) [Ratio] 13.8 % Normal 11.0-15.0 [facility] Comment on above: Performed By: #### C BC ####[facility] Vzebueqbas1358 [place] [address]Dr. Slick Broderick Hematocrit (Bld) [Volume fraction] 27.4 % Critically low 36.0-48.0 [facility] Comment on above: Performed By: #### C BC ####[facility] Cfbtmjcqyj5846 [place] [address]Dr. Slick Broderick Hemoglobin (Bld) [Mass/Vol] 8.8 g/dL Critically low 12.0-16.0 [facility] Comment on above: Performed By: #### C BC ####[facility] Oeehuxpzcf5569 [place] [address]Dr. Slick Broderick IG # 0.04 10e3/ul Critically high 0.00-0.03 [facility] Comment on above: Performed By: #### C BC ####[facility] Prafhcpefx1391 [place] [address]Dr. Slick Broderick IG % 0.6 % Critically high 0.0-0.5 [facility] Comment on above: Performed By: #### C BC ####[facility] Xhqquvyqhs6282 [place] [address]Dr. Slick Broderick LYMPH # 0.7 103/ul Critically low 1.2-3.8 [facility] Comment on above: Performed By: #### C BC ####[facility] Mrshmnydwz8745 [place] [address]Dr. Slick Broderick Lymphocytes/100 WBC (Bld) 9.8 % Critically low 20.5-60.0 [facility] Comment on above: Performed By: #### C BC ####[facility] Efyfpzsisk7754 [place] [address]Dr. Slick Broderick MANUAL DIFF REQ NO Normal [facility] Comment on above: Performed By: #### C BC ####[facility] Jgtclgobwl0[address] [place], [place] [address]Dr. Slick Broderick MCH (RBC) [Entitic mass] 28.9 pg Normal 26.7-34.0 [facility] Comment on above: Performed By: #### C BC ####[facility] Lgetkfidxp1629 [place] [address]Dr. Slick Broderick MCHC (RBC) [Mass/Vol] 32.1 g/dL Normal 29.9-35.2 [facility] Comment on above: Performed By: #### C BC ####[facility] Tvsacbqzpg1039 [place] [address]Dr. Slick Broderick MCV (RBC) [Entitic vol] 90.1 fL Normal 81.0-99.0 [facility] Comment on above: Performed By: #### C BC ####[facility] Bxhlhthjjm1501 [place] [address]Dr. Slick Broderick MONO # 0.6 103/ul Normal 0.3-0.8 [facility] Comment on above: Performed By: #### C BC ####[facility] Lvhilgdiak3030 [place] [address]Dr. Slick Broderick Monocytes/100 WBC (Bld) 7.6 % Normal 1.7-12.0 [facility] Comment on above: Performed By: #### C BC ####[facility] Iwwkhkeltx0679 [place] [address]Dr. Slick Broderick NEUT # 5.9 103/ul Normal 1.4-6.5 [facility] Comment on above: Performed By: #### C BC ####[facility] Ttillpmipl8901 [place] [address]Dr. Slick Davie Neutrophils/100 WBC (Bld) 80.3 % Critically high 43.0-75.0 [facility] Comment on above: Performed By: #### C BC ####[facility] Ebvkvgxvoy9055 [place] [address]Dr. Slick Broderick Platelet mean volume (Bld) [Entitic vol] 9.5 fL Normal 9.5-13.5 [facility] Comment on above: Performed By: #### C BC ####[facility] Zkpkalorwo7542 [place] [phone]. Slick Broderick PLT 204 103/ul Normal 150-450 [facility] Comment on above: Performed By: #### C BC ####[facility] Wdycccegov7595 [place] [phone]. Slick Broderick RBC 3.04 106/ul Critically low 4.20-5.40 [facility] Comment on above: Performed By: #### C BC ####[facility] Eqwtvlrtgz6096 [place] [phone]. Slick Broderick WBC 7.3 103/ul Normal 4.0-11.0 [facility] Comment on above: Performed By: #### C BC ####[facility] Jxnbnhtmbg2752 [place] [address]Dr. Slick Broderick BASO # 0.0 103/ul Normal 0.0-0.1 [facility] Comment on above: Performed By: #### C BC ####[facility] Ewxrpalmxj9035 [place] [phone]. Slick Broderick Basophils/100 WBC (Bld) 0.5 % Normal 0.2-2.0 [facility] Comment on above: Performed By: #### C BC ####[facility] Vzooklhjze0904 [place] [phone]. Slick Broderick EO # 0.6 103/ul Normal 0.0-0.7 [facility] Comment on above: Performed By: #### C BC ####[facility] Krvicvlqes3213 [place] [phone]. Slick Broderick Eosinophils/100 WBC (Bld) 10.4 % Critically high 0.9-7.0 [facility] Comment on above: Performed By: #### C BC ####[facility] Xhgvrewqhd[address] [place], [place] [id number]. Slick Broderick Erythrocyte distribution width (RBC) [Ratio] 14.0 % Normal 11.0-15.0 [facility] Comment on above: Performed By: #### C BC ####[facility] Ijukgiorhh6508 [place] [address]Dr. Slick Broderick Hematocrit (Bld) [Volume fraction] 26.5 % Critically low 36.0-48.0 [facility] Comment on above: Performed By: #### C BC ####[facility] Nhtooutenj5482 [place] [address]Dr. Slick Broderick Hemoglobin (Bld) [Mass/Vol] 8.4 g/dL Critically low 12.0-16.0 [facility] Comment on above: Performed By: #### C BC ####[facility] Uwbbxsgccd6760 [place] [address]Dr. Slick Broderick IG # 0.02 10e3/ul Normal 0.00-0.03 [facility] Comment on above: Performed By: #### C BC ####[facility] Wslhysmnlm1788 [place] [address]Dr. Slick Broderick IG % 0.4 % Normal 0.0-0.5 [facility] Comment on above: Performed By: #### C BC ####[facility] Ygneavjnnq2142 [place] [address]Dr. Meaganwendie Broderick LYMPH # 0.9 103/ul Critically low 1.2-3.8 [facility] Comment on above: Performed By: #### C BC ####[facility] Jpbukzvdfl9626 [place] [address]Dr. Meaganwendie Broderick Lymphocytes/100 WBC (Bld) 15.6 % Critically low 20.5-60.0 [facility] Comment on above: Performed By: #### C BC ####[facility] Wrdkvwgdev5429 [place] [phone]. Meaganwendie Broderick MANUAL DIFF REQ NO Normal [facility] Comment on above: Performed By: #### C BC ####[facility] Xcrslygjrs8388 [place] [address]DrEmma Slick Davie MCH (RBC) [Entitic mass] 29.2 pg Normal 26.7-34.0 [facility] Comment on above: Performed By: #### C BC ####[facility] Ivlddtntzr7362 [place] [phone]. Slick Broderick MCHC (RBC) [Mass/Vol] 31.7 g/dL Normal 29.9-35.2 [facility] Comment on above: Performed By: #### C BC ####[facility] Wlpnbflmpy3726 [place] [phone]. Slick Broderick MCV (RBC) [Entitic vol] 92.0 fL Normal 81.0-99.0 [facility] Comment on above: Performed By: #### C BC ####[facility] Qgsrfkjgqd154[address] [place], [place] [address]Dr. Slick Broderick MONO # 0.6 103/ul Normal 0.3-0.8 [facility] Comment on above: Performed By: #### C BC ####[facility] Veliwfevzb8325[address] [place], [place] [address]Dr. Slick Broderick Monocytes/100 WBC (Bld) 10.1 % Normal 1.7-12.0 [facility] Comment on above: Performed By: #### C BC ####[facility] Hayflaypgd4[address] [place], [place] [address]Dr. Slick Broderick NEUT # 3.5 103/ul Normal 1.4-6.5 [facility] Comment on above: Performed By: #### C BC ####[facility] Nzmamqzwpx208[address] [place], [place] [address]Dr. Slick Broderick Neutrophils/100 WBC (Bld) 63.0 % Normal 43.0-75.0 [facility] Comment on above: Performed By: #### C BC ####[facility] Kzlhhmggnp50[address] [place], [place] [address]Dr. Slick Broderick Platelet mean volume (Bld) [Entitic vol] 10.0 fL Normal 9.5-13.5 [facility] Comment on above: Performed By: #### C BC ####[facility] Vjugnaelpi[address] [place], [place] [id number]. Slick Broderick PLT 198 103/ul Normal 150-450 [facility] Comment on above: Performed By: #### C BC ####[facility] Fhniemtxln7268 [place] [phone]. Slick Davie RBC 2.88 106/ul Critically low 4.20-5.40 [facility] Comment on above: Performed By: #### C BC ####[facility] Xcltgtguen3670 [place] [address]Dr. Slick Broderick WBC 5.6 103/ul Normal 4.0-11.0 [facility] Comment on above: Performed By: #### C BC ####[facility] Vzznkfedqq9649 [place] [address]Dr. S[address] Bro[address] CT HEAD WO CONon 04-22-2022 CT HEAD WO CON Normal [facility] POINT OF CARE GLUCOSEon 04-12 Glucose [Mass/Vol] 110 mg/dL Critically high 74-106 [facility] Comment on above: Performed By: #### P OCGLUC ####[facility] Sfqstwodhj[address] [place], [place] [address]Dr. Slick Broderick PROF 14(COMP METB)on 022 Albumin [Mass/Vol] 3.0 g/dL Critically low 3.4-5.0 [facility] Comment on above: Performed By: #### C MP ####[facility] Sdaqogxwbl1890 [place] [address]Dr. Slick Broderick Albumin/Globulin [Mass ratio] 0.9 {ratio} Normal [facility] Comment on above: Performed By: #### C MP ####[facility] Exmythytev0827 [place] [address]Dr. Slick Broderick ALP [Catalytic activity/Vol] 93 U/L Normal 46-116 [facility] Comment on above: Performed By: #### C MP ####[facility] Rizlqtgvsk6471 [place] [address]Dr. Slick Broderick ALT [Catalytic activity/Vol] 22 U/L Normal 14-59 [facility] Comment on above: Performed By: #### C MP ####[facility] Oxmryhsykd1591 [place] [address]Dr. Slick Broderick Anion gap [Moles/Vol] 8.9 mmol/L Normal [facility] Comment on above: Performed By: #### C MP ####[facility] Vkptiuzezi3961 [place] [id number]. Slick Broderick AST [Catalytic activity/Vol] 18 U/L Normal 15-37 [facility] Comment on above: Performed By: #### C MP ####[facility] Swjgezzowe1802 [place] [id number]. Slick Broderick Bilirubin [Mass/Vol] 0.3 mg/dL Normal 0.2-1.0 [facility] Comment on above: Performed By: #### C MP ####[facility] Cmttlxjvsj4017 [place] [id number]. Slick Broderick Calcium [Mass/Vol] 9.6 mg/dL Normal 8.5-10.1 [facility] Comment on above: Performed By: #### C MP ####[facility] Vpbnsoyaot8[address] [place], [place] [address]Dr. Slick Broderick Chloride [Moles/Vol] 104 mmol/L Normal 98-107 [facility] Comment on above: Performed By: #### C MP ####[facility] Xjxkblspfl7496 [place] [id number]. Slick Broderick CO2 [Moles/Vol] 30.8 mmol/L Normal 21.0-32.[address] [facility] Comment on above: Performed By: #### C MP ####[facility] Jvzjwwyiug2154 [place] [phone]. Slick Broderick Creatinine [Mass/Vol] 1.73 mg/dL Critically high 0.55-1.02 [facility] Comment on above: Performed By: #### C MP ####[facility] Dymonchsqr1187 [place] [phone]. Slick Davie EGFR-AF DANISH 35 mL/min/1.73m2 Critically low >=60 [facility] Comment on above: Performed By: #### C MP ####[facility] Xsklqyjxgy0610 [place] [id number]. Slick Davie EGFR-NON AF DANISH 29 mL/min/1.73m2 Critically low >=60 [facility] Comment on above: Performed By: #### C MP ####[facility] Ybyvtcyzgy8725 [place] [address]Dr. Meaganwendie Davie Globulin (S) [Mass/Vol] 3.4 g/dL Normal [facility] Comment on above: Performed By: #### C MP ####[facility] Gnsyuuyerd8056 [place] [address]Dr. Slick Broderick Glucose [Mass/Vol] 94 mg/dL Normal 74-106 [facility] Comment on above: Performed By: #### C MP ####[facility] Xclsismotr6844 [place] [address]Dr. Slick Broderick Potassium [Moles/Vol] 4.7 mmol/L Normal 3.5-5.1 [facility] Comment on above: Performed By: #### C MP ####[facility] Alqnnfwmkg8009 [place] [address]Dr. Slick Broderick Protein [Mass/Vol] 6.4 g/dL Normal 6.4-8.2 [facility] Comment on above: Performed By: #### C MP ####[facility] Umqcyvaeha2221 [place] [address]Dr. Slick Broderick Sodium [Moles/Vol] 139 mmol/L Normal 136-145 [facility] Comment on above: Performed By: #### C MP ####[facility] Bgnfppfiji5892 [place] [address]Dr. Slick Broderick Urea nitrogen [Mass/Vol] 46.0 mg/dL Critically high 7.0-18.0 [facility] [facility] Comment on above: Performed By: #### C MP ####[facility] Aqdqwrrsdo64[address] [place] [address]Dr. Slick Broderick Urea nitrogen/Creatinine [Mass ratio] 26.6 mg/mg Normal [facility] Comment on above: Performed By: #### C MP ####[facility] Hdkhenhopd9249 [place] [id number]. Slick Broderick PROF CHEM 8 (BAS METB)on Anion gap [Moles/Vol] 8.6 mmol/L Normal [facility] Comment on above: Performed By: #### B MP ####[facility] Qjzqncedar38[address] [place] [address]Dr. Slick Broderick Calcium [Mass/Vol] 9.9 mg/dL Normal 8.5-10.1 [facility] Comment on above: Performed By: #### B MP ####[facility] Ginexjhnoy[address] [place], [place] [address]Dr. Slick Broderick Chloride [Moles/Vol] 103 mmol/L Normal 98-107 [facility] Comment on above: Performed By: #### B MP ####[facility] Lwqbnarxwy[address] [place], [place] [address]Dr. Slick Broderick CO2 [Moles/Vol] 29.5 mmol/L Normal 21.0-32.0 [facility] Comment on above: Performed By: #### B MP ####[facility] Xspcncdrhd82[address] [place], [place] [address]Dr. Slick Broderick Creatinine [Mass/Vol] 1.62 mg/dL Critically high 0.55-1.02 [facility] Comment on above: Performed By: #### B MP ####[facility] Yhrduvvrek4742[address] [place], [place] [address]Dr. Slick Broderick EGFR-AF DANISH 38 mL/min/1.73m2 Critically low >=60 [facility] Comment on above: Performed By: #### B MP ####[facility] Ynengezhol01[address] [place], [place] [address]Dr. Slick Broderick EGFR-NON AF DANISH 31 mL/min/1.73m2 Critically low >=60 [facility] Comment on above: Performed By: #### B MP ####[facility] Boclawytrs51[address] [place], [place] [address]Dr. Slick Broderick Glucose [Mass/Vol] 125 mg/dL Critically high 74-106 [facility] Comment on above: Performed By: #### B MP ####[facility] Yjuwwcwqtf9[address] [place], [place] [address]Dr. Slick Broderick Potassium [Moles/Vol] 4.1 mmol/L Normal 3.5-5.1 [facility] Comment on above: Performed By: #### B MP ####[facility] Epmwxmklem9[address] [place], [place] [address]Dr. Slick Broderick Sodium [Moles/Vol] 137 mmol/L Normal 136-145 [facility] Comment on above: Performed By: #### B MP ####[facility] Xcwkkloagb0[address] [place], [place] [address]Dr. Slick Broderick Urea nitrogen [Mass/Vol] 41.0 mg/dL Critically high 7.0-18.0 [facility] Comment on above: Performed By: #### B MP ####[facility] Xpfjozbxry7[address] [place], [place] [address]Dr. Slick Broderick Urea nitrogen/Creatinine [Mass ratio] 25.3 mg/mg Normal [facility] Comment on above: Performed By: #### B MP ####[facility] Tochgkljnd2787[address] [place], [place] [address]Dr. Slick Broderick PROTIMEon 04-22-2022 INR Coag (PPP) [Relative time] 1.08 {INR} Normal [facility] Comment on above: Performed By: #### P T, PTT ####[facility] Bdumdmzagg8[address] [place], [place] [address]Dr. Slick Broderick INR GUIDELINES SEE BELOW Normal [facility] Comment on above: Result Comment: EDMUND RED INR: 2.0 - 3.0 CONDITIONS NOT LISTED BELOW 2.5 - 3.5 FOR PROSTHETIC HEART VALVE REPLACEMENT 2.5 - 3.5 RECURRENT THROMBOSIS Performed By: #### P T, PTT ####[facility] Qjjgigjtdj5[address] [place], [place] [address]Dr. Slick Broderick PT Coag (PPP) [Time] 11.6 s Normal 9.0-11.6 [facility] Comment on above: Performed By: #### P T, PTT ####[facility] Teokatrjhs[address] [place], [place] [address]Dr. Slick Broderick PTTon 04-22-2022 aPTT Coag (Bld) [Time] 30.7 s Normal 22.3-36.2 [facility] Comment on above: Performed By: #### P T, PTT ####[facility] Gfmwrjwwje934[address] [place], [place] [address]Dr. Slick Broderick XR TIB_FIB RT 2Von 2 XR TIB_FIB RT 2V Normal [facility] CBC AUTO DIFFon 04-21-2022 BASO # 0.0 103/ul Normal 0.0-0.1 [facility] Comment on above: Performed By: #### C BC ####[facility] Cjpblpdlwl039[address] [place], [place] [address]Dr. Slick Broderick Basophils/100 WBC (Bld) 0.3 % Normal 0.2-2.0 [facility] Comment on above: Performed By: #### C BC ####[facility] Dhyzcyluob6156[address] [place], [place] [address]Dr. Slick Broderick EO # 0.6 103/ul Normal 0.0-0.7 [facility] Comment on above: Performed By: #### C BC ####[facility] Zdehocazfb913[address] [place], [place] [address]Dr. Slick Broderick Eosinophils/100 WBC (Bld) 10.2 % Critically high 0.9-7.0 [facility] Comment on above: Performed By: #### C BC ####[facility] Bilpcznzhk7196[address] [place], [place] [address]Dr. Slick Broderick Erythrocyte distribution width (RBC) [Ratio] 14.2 % Normal 11.0-15.0 [facility] Comment on above: Performed By: #### C BC ####[facility] Idrbnncgoz6[address] [place], [place] [address]Dr. Slick Broderick Hematocrit (Bld) [Volume fraction] 25.5 % Critically low 36.0-48.0 [facility] Comment on above: Performed By: #### C BC ####[facility] Mwyssblagc20[address] [place], [place] [address]Dr. Slick Broderick Hemoglobin (Bld) [Mass/Vol] 8.1 g/dL Critically low 12.0-16.0 [facility] Comment on above: Performed By: #### C BC ####[facility] Uvkcjsbaev38[address] [place] [phone]. Meaganwendie Davie IG # 0.02 10e3/ul Normal 0.00-0.03 [facility] Comment on above: Performed By: #### C BC ####[facility] Qpfwhjwxhe5454 [place] [phone]. Slick Broderick IG % 0.3 % Normal 0.0-0.5 [facility] Comment on above: Performed By: #### C BC ####[facility] Dwggxwpmoa16[address] [place] [address]Dr. Slick Broderick LYMPH # 0.8 103/ul Critically low 1.2-3.8 [facility] Comment on above: Performed By: #### C BC ####[facility] Qxcfqrqzzc6762 [place] [address]Dr. Slick Broderick Lymphocytes/100 WBC (Bld) 13.2 % Critically low 20.5-60.0 [facility] Comment on above: Performed By: #### C BC ####[facility] Hffsvindfr0656 [place] [address]DrEmma Broderick MANUAL DIFF REQ NO Normal [facility] Comment on above: Performed By: #### C BC ####[facility] Smvyrdheor4576 [place] [phone]. Slick Broderick MCH (RBC) [Entitic mass] 29.5 pg Normal 26.7-34.0 [facility] Comment on above: Performed By: #### C BC ####[facility] Autihlkvkt7380 [place] [phone]. Slick Broderick MCHC (RBC) [Mass/Vol] 31.8 g/dL Normal 29.9-35.2 [facility] Comment on above: Performed By: #### C BC ####[facility] Wvrglhgprj6346 [place] [phone]. Slick Broderick MCV (RBC) [Entitic vol] 92.7 fL Normal 81.0-99.0 [facility] Comment on above: Performed By: #### C BC ####[facility] Dsiosvnzjs7473 [place] [phone]. Slick Broderick MONO # 0.6 103/ul Normal 0.3-0.8 [facility] Comment on above: Performed By: #### C BC ####[facility] Jsnmvflmtj1904 [place] [phone]. Slick Broderick Monocytes/100 WBC (Bld) 9.2 % Normal 1.7-12.0 [facility] Comment on above: Performed By: #### C BC ####[facility] Coppjrstgi9813 [place] [phone]. Slick Broderick NEUT # 4.1 103/ul Normal 1.4-6.5 [facility] Comment on above: Performed By: #### C BC ####[facility] Wpsbjiekur4962 [place] [address]Dr. Slick Broderick Neutrophils/100 WBC (Bld) 66.8 % Normal 43.0-75.0 [facility] Comment on above: Performed By: #### C BC ####[facility] Dpewrmhvez8998 [place] [phone]. Slick Broderick Platelet mean volume (Bld) [Entitic vol] 9.5 fL Normal 9.5-13.5 [facility] Comment on above: Performed By: #### C BC ####[facility] Pooxcxlqvs4268 [place] [phone]. Slick Broderick PLT 189 103/ul Normal 150-450 [facility] Comment on above: Performed By: #### C BC ####[facility] Syfyyfdeqz4207 [place] [phone]. Slick Broderick RBC 2.75 106/ul Critically low 4.20-5.40 [facility] Comment on above: Performed By: #### C BC ####[facility] Saekjbbxlq8214 [place] [phone]. Slick Broderick WBC 6.2 103/ul Normal 4.0-11.0 [facility] Comment on above: Performed By: #### C BC ####[facility] Hzdfhktsmw8771 [place] [phone]. Slick Broderick BASO # 0.1 103/ul Normal 0.0-0.1 [facility] Comment on above: Performed By: #### C BC ####[facility] Drhogccrui4972 [place] [phone]. Slick Broderick Basophils/100 WBC (Bld) 0.8 % Normal 0.2-2.0 [facility] Comment on above: Performed By: #### C BC ####[facility] Caoulwshoi0334 [place] [phone]. Slick Broderick EO # 0.8 103/ul Critically high 0.0-0.7 [facility] Comment on above: Performed By: #### C BC ####[facility] Awsdvubcta74[address] [place], [place] [address]Dr. Slick Broderick Eosinophils/100 WBC (Bld) 11.7 % Critically high 0.9-7.0 [facility] Comment on above: Performed By: #### C BC ####[facility] Fprjpthwwn392[address] [place], [place] [address]Dr. Slick Broderick Erythrocyte distribution width (RBC) [Ratio] 14.1 % Normal 11.0-15.0 [facility] Comment on above: Performed By: #### C BC ####[facility] Pphpzaovek[address] [place], [place] [id number]. Slick Broderick Hematocrit (Bld) [Volume fraction] 27.3 % Critically low 36.0-48.0 [facility] Comment on above: Performed By: #### C BC ####[facility] Hpurxfcfei075[address] [place], [place] [address]Dr. Slick Broderick Hemoglobin (Bld) [Mass/Vol] 8.4 g/dL Critically low 12.0-16.0 [facility] Comment on above: Performed By: #### C BC ####[facility] Ejxjyxhsyl[address] [place], [place] [address]Dr. Slick Broderick IG # 0.02 10e3/ul Normal 0.00-0.03 [facility] Comment on above: Performed By: #### C BC ####[facility] Ncrjdyqsbn6557 [place] [phone]. Slick Broderick IG % 0.3 % Normal 0.0-0.5 [facility] Comment on above: Performed By: #### C BC ####[facility] Zcbkqjsaxf5226 [place] [phone]. Slick Broderick LYMPH # 1.0 103/ul Critically low 1.2-3.8 [facility] Comment on above: Performed By: #### C BC ####[facility] Ckewlpzdds0072 [place] [phone]. Slick Broderick Lymphocytes/100 WBC (Bld) 14.5 % Critically low 20.5-60.0 [facility] Comment on above: Performed By: #### C BC ####[facility] Sddqnzmyse4982 [place] [address]Dr. Slick Broderick MANUAL DIFF REQ NO Normal [facility] Comment on above: Performed By: #### C BC ####[facility] Mpwtavxusd4057 [place] [phone]. Slick Broderick MCH (RBC) [Entitic mass] 29.2 pg Normal 26.7-34.0 [facility] Comment on above: Performed By: #### C BC ####[facility] Ozszmwrxqc8185 [place] [phone]. Slick Broderick MCHC (RBC) [Mass/Vol] 30.8 g/dL Normal 29.9-35.2 [facility] Comment on above: Performed By: #### C BC ####[facility] Jkeaxcnsim3102 [place] [address]Dr. Slick Broderick MCV (RBC) [Entitic vol] 94.8 fL Normal 81.0-99.0 [facility] Comment on above: Performed By: #### C BC ####[facility] Xugafqkcti0900 [place] [address]DrEmma Broderick MONO # 0.6 103/ul Normal 0.3-0.8 [facility] Comment on above: Performed By: #### C BC ####[facility] Jxcgubihvh1872 [place] [phone]. Slick Broderick Monocytes/100 WBC (Bld) 9.7 % Normal 1.7-12.0 [facility] Comment on above: Performed By: #### C BC ####[facility] Tikaxmjtkw2585 [place] [phone]. Slick Broderick NEUT # 4.2 103/ul Normal 1.4-6.5 [facility] Comment on above: Performed By: #### C BC ####[facility] Pmvjfeinqs2778 [place] [phone]. Slick Broderick Neutrophils/100 WBC (Bld) 63.0 % Normal 43.0-75.0 [facility] Comment on above: Performed By: #### C BC ####[facility] Ryvfsuehkz8991 [place] [address]Dr. Slick Broderick Platelet mean volume (Bld) [Entitic vol] 10.0 fL Normal 9.5-13.5 [facility] Comment on above: Performed By: #### C BC ####[facility] Xhjmcztjod0742 [place] [phone]. Slick Broderick PLT 210 103/ul Normal 150-450 [facility] Comment on above: Performed By: #### C BC ####[facility] Hasuduabab1356 [place] [phone]. Slick Broderick RBC 2.88 106/ul Critically low 4.20-5.40 [facility] Comment on above: Performed By: #### C BC ####[facility] Hqsvbokcmu7004 [place] [phone]. Slick Broderick WBC 6.6 103/ul Normal 4.0-11.0 [facility] Comment on above: Performed By: #### C BC ####[facility] Dixgwuytrt2019 [place] [phone]. Slick Broderick CRPon 04-21-2022 CRP 0.4 mg/dL Normal <=1.0 [facility] Comment on above: Performed By: #### H STROPN, CRP, CMP ####[facility] Rlpfdexjmo7867 [place] [phone]. Slick Broderick CT HEAD WO CONon 04-21-2022 CT HEAD WO CON Normal [facility] CULTURE BLOODon 04-21-2022 Microscopic examination of blood, culture Culture Observations: NO GROWTH AT 5 DAYS. Normal [facility] Comment on above: Performed By: #### B LDCX2 ####[facility] Ccnimzqdza4210 [place] [phone]. Slick Broderick Microscopic examination of blood, culture Culture Observations: NO GROWTH AT 5 DAYS. Normal [facility] Comment on above: Performed By: #### B LDCX1 ####[facility] Lzwntposjh9002 [place] [address]Dr. Slick Broderick CULTURE URINEon 04-21-2022 CULTURE URINE Culture Observations: MODERATE GROWTH OF MIXED GENITAL OMAR. NO POTENTIAL PATHOGENS SEEN. Normal [facility] Comment on above: Performed By: #### U RCX ####[facility] Sljhdhjkpf6[address] [place], [place] [address]Dr. wednie [facility] Covid-19 PCR (CVDTB)on 04-12 SARS-CoV-2 (COVID-19) RNA DONNIE+probe Ql (Unsp spec) Not detected Normal NOT DETECTED [facility] Comment on above: Result Comment: When [...] for this test is supported by the [place] of [employer] and Human Service's declaration that [...] be used). Performed By: #### C VDTB ####[facility] Xuffodijtu9935[address] [place], [place] [address]Dr. Slick Broderick ER URINE PROFILEon 2 Bilirubin Ql (U) Negative Normal NEGATIVE [facility] Comment on above: Performed By: #### Dennise PLEITEZ UMICRO ####[facility] Ppshvqdmme672[address] [place], [place] [address]Dr. Slick Broderick Clarity (U) CLEAR Normal CLEAR [facility] Comment on above: Performed By: #### Dennise PLEITEZ UMICRO ####[facility] Whzljaxcia7[address] [place], [place] [address]Dr. Slick Broderick Color (U) LT. YELLOW Normal YELLOW [facility] Comment on above: Performed By: #### Dennise PLEITEZ UMICRO ####[facility] Zlbazpouon[address] [place], [place] [address]Dr. Meaganwendie Broderick ERUAHD A micrscopic examination will be performed if indicated. Normal [facility] Comment on above: Performed By: #### Dennise PLEITEZ UMICRO ####[facility] Cdcsfnjcsx0667[address] [place], [place] [address]Dr. Slick Broderick Glucose Ql (U) Negative Normal NEGATIVE [facility] Comment on above: Performed By: #### Dennise PLEITEZ UMICRO ####[facility] Pfhnndvlez20[address] [place], [place] [address]Dr. Slick Broderick Hemoglobin Ql (U) Negative Normal NEGATIVE [facility] Comment on above: Performed By: #### Dennise PLEITEZ UMICRO ####[facility] Akffmpbgnm5093[address] [place], [place] [address]Dr. Meaganwendie Broderick Ketones Ql (U) Negative Normal NEGATIVE [facility] Comment on above: Performed By: #### Dennise PLEITEZ UMICRO ####[facility] Tzfikusjef64[address] [place], [place] [address]Dr. Slick Broderick LEUKOCYTES TRACE Abnormal NEGATIVE [facility] Comment on above: Performed By: #### Dennise PLEITEZ UMICRO ####[facility] Aycuaiwrqq9603 [place] [address]Dr. Slick Broderick Nitrite Ql (U) Negative Normal NEGATIVE [facility] Comment on above: Performed By: #### JANIS PEDRO ####[facility] Pbdrvgzclx4703 [place] [address]Dr. Slick Broderick pH (U) 5.5 [pH] Normal 5-9 [facility] Comment on above: Performed By: #### JNAIS PEDRO ####[facility] Oyupcqvjwr9351 [place] [address]Dr. Slick Broderick SPEC GRAVITY 1.010 Normal 1.005-<=1.0 25 [facility] Comment on above: Performed By: #### JANIS PEDRO ####[facility] Tgiguczxnb2499 [place] [address]Dr. Slick Broderick UA PROTEIN Negative Normal NEGATIVE/ TRACE [facility] Comment on above: Performed By: #### JANIS PEDRO ####[facility] Vfvjfkcvls5472 [place] [address]Dr. Slick Broderick UR MICRO IND INDICATED Normal [facility] Comment on above: Performed By: #### JANIS PEDRO ####[facility] Mkoprqvrwp2587 [place] [address]Dr. Slick Broderick Urobilinogen Qn (U) 0.2 {Hiren'U}/dL Normal 0.2 - 1. 0 [facility] Comment on above: Performed By: #### JANIS PEDRO ####[facility] Makajrgfcx3093 [place] [address]Dr. Slick Broderick LACTATE/LACTIC ACIDon 2021 Lactate [Moles/Vol] 1.0 mmol/L Normal 0.4-1.9 [facility] Comment on above: Performed By: #### L ACT ####[facility] Mezftwuxqq34[address] [place], [place] [address]Dr. Slick Broderick POINT OF CARE GLUCOSEon 04-12 Glucose [Mass/Vol] 109 mg/dL Critically high 74-106 [facility] Comment on above: Performed By: #### P OCGLUC ####[facility] Xvyytokneb3823 [place] [id number]. Meaganwendie Davie Glucose [Mass/Vol] 93 mg/dL Normal 74-106 [facility] Comment on above: Performed By: #### P OCGLUC ####[facility] Vimxewicfc0232 [place] [phone]. Meaganwendie Broderick Glucose [Mass/Vol] 140 mg/dL Critically high 74-106 [facility] Comment on above: Performed By: #### P OCGLUC ####[facility] Wmzcgwkulb1300 [place] [phone]. Slick Broderick Glucose [Mass/Vol] 95 mg/dL Normal 74-106 [facility] Comment on above: Performed By: #### P OCGLUC ####[facility] Pbdvtndvvb4106 [place] [address]Dr. Slick Broderick PROF 14(COMP METB)on 022 Albumin [Mass/Vol] 2.9 g/dL Critically low 3.4-5.0 [facility] Comment on above: Performed By: #### C MP ####[facility] Dchhkcsiqa3348 [place] [id number]. Slick Broderick Albumin/Globulin [Mass ratio] 0.9 {ratio} [facility] Comment on above: Performed By: #### C MP ####[facility] Tsikfrfioq3157 [place] [address]Dr. Slick Broderick ALP [Catalytic activity/Vol] 87 U/L Normal 46-116 [facility] Comment on above: Performed By: #### C MP ####[facility] Qpkctmkwyj9751 [place] [phone]. Slick Broderick ALT [Catalytic activity/Vol] 21 U/L Normal 14-59 [facility] Comment on above: Performed By: #### C MP ####[facility] Rrjfatmafd6815 [place] [id number]. Slick Broderick Anion gap [Moles/Vol] 7.7 mmol/L Normal [facility] Comment on above: Performed By: #### C MP ####[facility] Hhoiuumyxi9222 [place] [phone]. Slick Broderick AST [Catalytic activity/Vol] 11 U/L Critically low 15-37 [facility] Comment on above: Performed By: #### C MP ####[facility] Ysvnklture0203 [place] [id number]. Slick Broderick Bilirubin [Mass/Vol] 0.2 mg/dL Normal 0.2-1.0 [facility] Comment on above: Performed By: #### C MP ####[facility] Tzlkcejsom7212 [place] [phone]. Slick Broderick Calcium [Mass/Vol] 9.4 mg/dL Normal 8.5-10.1 [facility] Comment on above: Performed By: #### C MP ####[facility] Fcbahiewqn9[address] [place], [place] [address]Dr. Slick Broderick Chloride [Moles/Vol] 107 mmol/L Normal 98-107 [facility] Comment on above: Performed By: #### C MP ####[facility] Fxohruaako[address] [place], [place] [address]Dr. lSick Broderick CO2 [Moles/Vol] 31.2 mmol/L Normal 21.0-32.[address] [facility] Comment on above: Performed By: #### C MP ####[facility] Lshgwpisqj6[address] [place], [place] [address]Dr. Slick Broderick Creatinine [Mass/Vol] 2.06 mg/dL Critically high 0.55-1.02 [facility] Comment on above: Performed By: #### C MP ####[facility] Bkboxvsfcd3617 [place] [id number]. Slick Davie EGFR-AF DANISH 29 mL/min/1.73m2 Critically low >=60 [facility] Comment on above: Performed By: #### C MP ####[facility] Tabungxbup7274 [place] [phone]. Meaganwendie Davie EGFR-NON AF DANISH 24 mL/min/1.73m2 Critically low >=60 [facility] Comment on above: Performed By: #### C MP ####[facility] Uvciyuaack2025 [place] [id number]. Slick Broderick Globulin (S) [Mass/Vol] 3.4 g/dL Normal T [facility] Comment on above: Performed By: #### C MP ####[facility] Ouhhgfibha7670 [place] [phone]. Slick Broderick Glucose [Mass/Vol] 93 mg/dL Normal 74-106 [facility] Comment on above: Performed By: #### C MP ####[facility] Bjlegmmsmm4756 [place] [phone]. Slick Broderick Potassium [Moles/Vol] 4.9 mmol/L Normal 3.5-5.1 [facility] Comment on above: Performed By: #### C MP ####[facility] Thwfmlccrj2510 [place] [address]Dr. Slick Broderick Protein [Mass/Vol] 6.3 g/dL Critically low 6.4-8.2 [facility] Comment on above: Performed By: #### C MP ####[facility] Wuorkkbktb3092 [place] [address]Dr. Slick Broderick Sodium [Moles/Vol] 141 mmol/L Normal 136-145 [facility] Comment on above: Performed By: #### C MP ####[facility] Tbotskobjh1963 [place] [address]Dr. Slick Broderick Urea nitrogen [Mass/Vol] 63.0 mg/dL Critically high 7.0-18.0 [facility] Comment on above: Performed By: #### C MP ####[facility] Qlzdcbyhbb9160 [place] [id number]. Slick Broderick Urea nitrogen/Creatinine [Mass ratio] 30.6 mg/mg Normal [facility] Comment on above: Performed By: #### C MP ####[facility] Kuracbewex9286 [place] [phone]. lSick Broderick Albumin [Mass/Vol] 3.1 g/dL Critically low 3.4-5.0 [facility] Comment on above: Performed By: #### H STROPN, CRP, CMP ####[facility] Rvgpdcqhpo4245 [place] [address]Dr. Slick Broderick Albumin/Globulin [Mass ratio] 0.9 {ratio} [facility] [facility] Comment on above: Performed By: #### H STROPN, CRP, CMP ####[facility] Ntfbyakuaw[address] [place] [address]Dr. Slick Broderick ALP [Catalytic activity/Vol] 98 U/L Normal 46-116 [facility] Comment on above: Performed By: #### H STROPN, CRP, CMP ####[facility] Oqmdydhmsx380[address] [place] [address]Dr. Slick Davie ALT [Catalytic activity/Vol] 17 U/L Normal 14-59 [facility] Comment on above: Performed By: #### H STROPN, CRP, CMP ####[facility] Tanjppabnf[address] [place], [place] [address]Dr. Slick Broderick Anion gap [Moles/Vol] 4.3 mmol/L Normal [facility] Comment on above: Performed By: #### H STROPN, CRP, CMP ####[facility] Ddshyjeaeu[address] [place], [place] [address]Dr. Slick Davie AST [Catalytic activity/Vol] 11 U/L Critically low 15-37 [facility] Comment on above: Performed By: #### H STROPN, CRP, CMP ####[facility] Rckgakxak[address] [place], [place] [address]Dr. Slick Broderick Bilirubin [Mass/Vol] 0.2 mg/dL Normal 0.2-1.0 [facility] Comment on above: Performed By: #### H STROPN, CRP, CMP ####[facility] Sfsdejmwpi6[address] [place] [address]Dr. Slick Davie Calcium [Mass/Vol] 9.6 mg/dL Normal 8.5-10.1 [facility] Comment on above: Performed By: #### H STROPN, CRP, CMP ####[facility] Gsvjwnyago29[address] [place] [address]Dr. Slick Broderick Chloride [Moles/Vol] 104 mmol/L Normal 98-107 [facility] Comment on above: Performed By: #### H STROPN, CRP, CMP ####[facility] Ukifdjqvch89[address] [place] [address]Dr. Slick Broderick CO2 [Moles/Vol] 32.3 mmol/L Critically high 21.0-32.0 [facility] Comment on above: Performed By: #### H STROPN, CRP, CMP ####[facility] Zeiuecnmlp0[address] [place] [address]Dr. Slick Broderick Creatinine [Mass/Vol] 2.49 mg/dL Critically high 0.55-1.02 [facility] Comment on above: Performed By: #### H STROPN, CRP, CMP ####[facility] Zikysvgawg25[address] [place] [address]Dr. Slick Broderick EGFR-AF DANISH 23 mL/min/1.73m2 Critically low >=60 [facility] Comment on above: Performed By: #### H STROPN, CRP, CMP ####[facility] Sztmejrecy40[address] [place] [address]Dr. Slick Broderick EGFR-NON AF DANISH 19 mL/min/1.73m2 Critically low >=60 [facility] Comment on above: Performed By: #### H STROPN, CRP, CMP ####[facility] Xtprlsubdw2198 [place] [address]Dr. Slick Broderick Globulin (S) [Mass/Vol] 3.5 g/dL Normal [facility] Comment on above: Performed By: #### H STROPN, CRP, CMP ####[facility] Zikkaypsiw86[address] [place] [address]Dr. Slick Broderick Glucose [Mass/Vol] 112 mg/dL Critically high 74-106 [facility] Comment on above: Performed By: #### H STROPN, CRP, CMP ####[facility] Ykfmjtmate3827 [place] [address]Dr. Slick Broderick Potassium [Moles/Vol] 4.6 mmol/L Normal 3.5-5.1 [facility] Comment on above: Performed By: #### H STROPN, CRP, CMP ####[facility] Cehggirtcy2570 [place] [address]Dr. Slick Broderick Protein [Mass/Vol] 6.6 g/dL Normal 6.4-8.2 [facility] Comment on above: Performed By: #### H STROPN, CRP, CMP ####[facility] Azburjfwab9165 [place] [address]Dr. Slick Broderick Sodium [Moles/Vol] 136 mmol/L Normal 136-145 [facility] Comment on above: Performed By: #### H STROPN, CRP, CMP ####[facility] Glgyyznkih3372 [place] [address]Dr. Slick Broderick Urea nitrogen [Mass/Vol] 74.0 mg/dL Critically high 7.0-18.0 [facility] Comment on above: Performed By: #### H STROPN, CRP, CMP ####[facility] Cvdhontucl0333 [place] [address]Dr. Slick Broderick Urea nitrogen/Creatinine [Mass ratio] 29.7 mg/mg Normal [facility] Comment on above: Performed By: #### H STROPN, CRP, CMP ####[facility] Sbjtdtyeqm7965 [place] [address]Dr. Slick Broderick [facility] SED RATE 32 mm/hr Critically high <=30 [facility] Comment on above: Performed By: #### S EDR ####[facility] Ycwuhusakz9[address] [place] [address]Dr. Slick Broderick TROPONIN, HIGH SENSITIVITYon 04-21-2022 HSTROP 8.6 pg/mL Normal 4.0-51.3 [facility] Comment on above: Result Comment: CUT- OFF POINTS HAVE BEEN ESTABLISHED BASED ON THE FOURTH UNIVERSAL DEFINITIONS OF MYOCARDIALINFARCTION. THE UPPER REFERENCE LIMIT (URL) OF TROPONIN, DEFINED THE 99TH PERCENTILE OFcTnI DISTRIBUTION IN A REFERENCE POPULATION, HAS BEEN CONFIRMED THE DECISION THRESHOLDFOR DC DIAGNOSIS. Performed By: #### H STROPN, CRP, CMP ####[facility] Inektbfotf95[address] [place] [address]Dr. Slick Broderick URINE MICROSCOPIC ONLYon BACTERIA TRACE Abnormal NONE SEEN [facility] Comment on above: Performed By: #### AMBERLY PEDRORO ####[facility] Zvimfjpxut9978 [place] [address]Dr. Slick Broderick Bacteria identified Cx Nom (U) INDICATED Normal [facility] Comment on above: Performed By: #### AMBERLY PEDRORO ####[facility] Zzsluwzljk2631 [place] [address]Dr. Slick Broderick CAST NONE SEEN Normal NONE SEEN [facility] Comment on above: Performed By: #### AMBERLY PEDRORO ####[facility] Fumqqazwbf[address] [place], [place] [address]Dr. Slick Broderick Crystals LM Nom (Urine sed) NONE SEEN Normal NONE SEEN [facility] Comment on above: Performed By: #### AMBERLY PEDRORO ####[facility] Njthscirxf95[address] [place], [place] [address]Dr. Slick Broderick Epithelial cells LM Ql (Urine sed) FEW Abnormal NONE SEEN /RARE [facility] Comment on above: Performed By: #### AMBERLY PEDRORO ####[facility] Xhssjpkmka23[address] [place], [place] [address]Dr. Slick Broderick MUCOUS NONE SEEN Normal NONE SEEN [facility] Comment on above: Performed By: #### AMBERLY PEDRORO ####[facility] Qwxilavcza0117[address] [place], [place] [address]Dr. Slick Broderick RBC 0-2 Normal 0-2 [facility] Comment on above: Performed By: #### AMBERLY PEDRORO ####[facility] Pzxhxbrhue[address] [place], [place] [address]Dr. Slick Broderick WBC 5-10 Abnormal NONE SEEN [facility] Comment on above: Performed By: #### AMBERLY PEDRORO ####[facility] Ndlksdgpsf24[address] [place], [place] [address]Dr. Slick Broderick XR CHEST 1 Von 04-21-2022 XR CHEST 1 V Normal [facility] CBC AUTO DIFFon 03-29-2022 BASO # 0.1 103/ul Normal 0.0-0.1 [facility] Comment on above: Performed By: #### C BC ####[facility] Qmogjayfdk3504 [place] [address]Dr. Slick Broderick Basophils/100 WBC (Bld) 0.7 % Normal 0.2-2.0 [facility] Comment on above: Performed By: #### C BC ####[facility] Mxtlrcdutc2035 [place] [address]Dr. Slick Broderick EO # 0.4 103/ul Normal 0.0-0.7 [facility] Comment on above: Performed By: #### C BC ####[facility] Oxkdgscprt0674 [place] [address]Dr. Slick Broderick Eosinophils/100 WBC (Bld) 4.8 % Normal 0.9-7.0 [facility] Comment on above: Performed By: #### C BC ####[facility] Coleuvffhe0836 [place] [address]Dr. Slick Broderick Erythrocyte distribution width (RBC) [Ratio] 13.9 % Normal 11.0-15.0 [facility] Comment on above: Performed By: #### C BC ####[facility] Tuughvegyw7843 [place] [address]Dr. Slick Broderick Hematocrit (Bld) [Volume fraction] 28.0 % Critically low 36.0-48.0 [facility] Comment on above: Performed By: #### C BC ####[facility] Krdzzzbuzd[address] [place], [place] [address]Dr. Slick Broderick Hemoglobin (Bld) [Mass/Vol] 8.8 g/dL Critically low 12.0-16.0 [facility] Comment on above: Performed By: #### C BC ####[facility] Rorwmcbjng[address] [place], [place] [address]Dr. Slick Broderick IG # 0.05 10e3/ul Critically high 0.00-0.03 [facility] Comment on above: Performed By: #### C BC ####[facility] Xlidxsnois[address] [place] [id number]. Meaganwendie Broderick IG % 0.7 % Critically high 0.0-0.5 [facility] Comment on above: Performed By: #### C BC ####[facility] Ynaoagtwoz7[address] [place] [id number]. Slick Davie LYMPH # 1.0 103/ul Critically low 1.2-3.8 [facility] Comment on above: Performed By: #### C BC ####[facility] Ieytvfgzww6187 [place] [address]Dr. Meaganwendie Broderick Lymphocytes/100 WBC (Bld) 13.0 % Critically low 20.5-60.0 [facility] Comment on above: Performed By: #### C BC ####[facility] Omzrugzasu0698 [place] [address]Dr. Slick Broderick MANUAL DIFF REQ NO Normal [facility] Comment on above: Performed By: #### C BC ####[facility] Jqadzugwho1915 [place] [address]Dr. Slick Davie MCH (RBC) [Entitic mass] 28.9 pg Normal 26.7-34.0 [facility] Comment on above: Performed By: #### C BC ####[facility] Huqfsfcupa6860 [place] [address]Dr. Meaganwendie Davie MCHC (RBC) [Mass/Vol] 31.4 g/dL Normal 29.9-35.2 [facility] Comment on above: Performed By: #### C BC ####[facility] Ecpltuhtyj8310 [place] [address]Dr. Slick Broderick MCV (RBC) [Entitic vol] 92.1 fL Normal 81.0-99.0 [facility] Comment on above: Performed By: #### C BC ####[facility] Ogovwkoefp3315 [place] [address]Dr. Slick Broderick MONO # 0.8 103/ul Normal 0.3-0.8 [facility] Comment on above: Performed By: #### C BC ####[facility] Puohwatzsj7204 [place] [id number]. Slick Broderick Monocytes/100 WBC (Bld) 10.7 % Normal 1.7-12.0 [facility] Comment on above: Performed By: #### C BC ####[facility] Bhhqxofhzq7734 [place] [id number]. Slick Broderick NEUT # 5.4 103/ul Normal 1.4-6.5 [facility] Comment on above: Performed By: #### C BC ####[facility] Fmnvjdalvv8351 [place] [phone]. Slick Broderick Neutrophils/100 WBC (Bld) 70.1 % Normal 43.0-75.0 [facility] Comment on above: Performed By: #### C BC ####[facility] Pclbmougtd0889 [place] [phone]. Slick Broderick Platelet mean volume (Bld) [Entitic vol] 8.9 fL Critically low 9.5-13.5 [facility] Comment on above: Performed By: #### C BC ####[facility] Ypfidlubqm5166 [place] [phone]. Slick Broderick PLT 221 103/ul Normal 150-450 [facility] Comment on above: Performed By: #### C BC ####[facility] Gblskggjkq1972 [place] [phone]. Slick Broderick RBC 3.04 106/ul Critically low 4.20-5.40 [facility] Comment on above: Performed By: #### C BC ####[facility] Tiuyntcisj8554 [place] [phone]. Slick Broderick WBC 7.7 103/ul Normal 4.0-11.0 [facility] Comment on above: Performed By: #### C BC ####[facility] Bvfyntutlb1595 [place] [phone]. Slick Broderick PRBC LEUKOREDUCEDon 03-29-20 PRBC LEUKOREDUCED Cross Match Result Compatible Unit Blood Type O Pos Unit Number [id number] Status Information Transfused Product ID Red Blood Cells Product Code [id number] Normal [facility] Comment on above: Performed By: #### P RBC ####[facility] Kjdjtfnlnt6[address] [place], [place] [address]Dr. Slick Broderick PROF CHEM 8 (BAS METB)on Anion gap [Moles/Vol] 9.6 mmol/L Normal [facility] Comment on above: Performed By: #### B MP ####[facility] Eifvzrfjro343[address] [place], [place] [address]Dr. Slick Broderick Calcium [Mass/Vol] 9.4 mg/dL Normal 8.5-10.1 [facility] Comment on above: Performed By: #### B MP ####[facility] Seogwjazbn7675[address] [place], [place] [address]Dr. Slick Broderick Chloride [Moles/Vol] 101 mmol/L Normal 98-107 [facility] Comment on above: Performed By: #### B MP ####[facility] Eqfrluozne727[address] [place], [place] [address]Dr. Slick Broderick CO2 [Moles/Vol] 28.3 mmol/L Normal 21.0-32.[address] [facility] Comment on above: Performed By: #### B MP ####[facility] Rlapfxjzpm03[address] [place], [place] [address]Dr. Slick Broderick Creatinine [Mass/Vol] 1.56 mg/dL Critically high 0.55-1.02 [facility] Comment on above: Performed By: #### B MP ####[facility] Ymtutpfmdr58[address] [place], [place] [address]Dr. Slick Broderick EGFR-AF DANISH 39 mL/min/1.73m2 Critically low >=60 [facility] Comment on above: Performed By: #### B MP ####[facility] Cjdpgwuyva[address] [place], [place] [address]Dr. Slick Broderick EGFR-NON AF DANISH 33 mL/min/1.73m2 Critically low >=60 [facility] Comment on above: Performed By: #### B MP ####[facility] Mhethrjgcy6552 [place] [address]Dr. Slick Broderick Glucose [Mass/Vol] 88 mg/dL Normal 74-106 [facility] Comment on above: Performed By: #### B MP ####[facility] Vcqrybvlqb[address] [place], [place] [address]Dr. Slick Broderick Potassium [Moles/Vol] 4.9 mmol/L Normal 3.5-5.1 [facility] Comment on above: Performed By: #### B MP ####[facility] Yqahwtlkok9[address] [place], [place] [address]Dr. Slick Broderick Sodium [Moles/Vol] 134 mmol/L Critically low 136-145 [facility] Comment on above: Performed By: #### B MP ####[facility] Ypaatoonkp45[address] [place], [place] [address]Dr. Slick Broderick Urea nitrogen [Mass/Vol] 50.0 mg/dL Critically high 7.0-18.0 [facility] Comment on above: Performed By: #### B MP ####[facility] Xxtvkjmyvt7[address] [place], [place] [address]Dr. Slick Davie Urea nitrogen/Creatinine [Mass ratio] 32.1 mg/mg Normal [facility] Comment on above: Performed By: #### B MP ####[facility] Ezsvpwgefg2848[address] [place], [place] [address]Dr. Slick Davie CBC AUTO DIFFon 03-28-2022 BASO # 0.1 103/ul Normal 0.0-0.1 [facility] Comment on above: Performed By: #### C BC ####[facility] Oyalcouulp64[address] [place], [place] [address]Dr. Slick Davie Basophils/100 WBC (Bld) 0.7 % Normal 0.2-2.0 [facility] Comment on above: Performed By: #### C BC ####[facility] Yfjamnrbdl1463[address] [place], [place] [address]Dr. Slick Broderick EO # 0.4 103/ul Normal 0.0-0.7 [facility] Comment on above: Performed By: #### C BC ####[facility] Vevnzyoobi0908 [place] [phone]. Slick Broderick Eosinophils/100 WBC (Bld) 5.5 % Normal 0.9-7.0 [facility] Comment on above: Performed By: #### C BC ####[facility] Gtrdshmdiq7097 [place] [phone]. Slick Broderick Erythrocyte distribution width (RBC) [Ratio] 13.6 % Normal 11.0-15.0 [facility] Comment on above: Performed By: #### C BC ####[facility] Kanparucgv[address] [place], [place] [id number]. Slick Broderick Hematocrit (Bld) [Volume fraction] 27.9 % Critically low 36.0-48.0 [facility] Comment on above: Performed By: #### C BC ####[facility] Uxgaepshqk12[address] [place], [place] [address]Dr. Slick Broderick Hemoglobin (Bld) [Mass/Vol] 9.0 g/dL Critically low 12.0-16.0 [facility] Comment on above: Performed By: #### C BC ####[facility] Wszdctdmed8165 [place] [address]Dr. Slick Broderick IG # 0.02 10e3/ul Normal 0.00-0.03 [facility] Comment on above: Performed By: #### C BC ####[facility] Gtoaitpcsi4299 [place] [address]Dr. Slick Broderick IG % 0.3 % Normal 0.0-0.5 [facility] Comment on above: Performed By: #### C BC ####[facility] Ksvhlzbqzt9420 [place] [phone]. Slick Broderick LYMPH # 0.9 103/ul Critically low 1.2-3.8 [facility] Comment on above: Performed By: #### C BC ####[facility] Xrmlzfmlva[address] [place], [place] [address]Dr. Slick Broderick Lymphocytes/100 WBC (Bld) 13.0 % Critically low 20.5-60.0 [facility] Comment on above: Performed By: #### C BC ####[facility] Ymccgonjir6738 [place] [phone]. Slick Broderick MANUAL DIFF REQ NO Normal [facility] Comment on above: Performed By: #### C BC ####[facility] Ykendmvyky5478 [place] [phone]. Slick Broderick MCH (RBC) [Entitic mass] 29.6 pg Normal 26.7-34.0 [facility] Comment on above: Performed By: #### C BC ####[facility] Qlzkkrpupi04[address] [place], [place] [address]Dr. Slick Broderick MCHC (RBC) [Mass/Vol] 32.3 g/dL Normal 29.9-35.2 [facility] Comment on above: Performed By: #### C BC ####[facility] Lzmhepqfsu3318 [place] [address]Dr. Slick Broderick MCV (RBC) [Entitic vol] 91.8 fL Normal 81.0-99.0 [facility] Comment on above: Performed By: #### C BC ####[facility] Pencuxecxs2988 [place] [phone]. Slick Broderick MONO # 0.7 103/ul Normal 0.3-0.8 [facility] Comment on above: Performed By: #### C BC ####[facility] Vawiznbkhk1016 [place] [phone]. Slick Davie Monocytes/100 WBC (Bld) 11.1 % Normal 1.7-12.0 [facility] Comment on above: Performed By: #### C BC ####[facility] Wvwxuuuoyj[address] [place], [place] [address]Dr. Slick Broderick NEUT # 4.6 103/ul Normal 1.4-6.5 [facility] Comment on above: Performed By: #### C BC ####[facility] Jzwnprnvgy[address] [place], [place] [address]Dr. Meaganwendie Broderick Neutrophils/100 WBC (Bld) 69.4 % Normal 43.0-75.0 [facility] Comment on above: Performed By: #### C BC ####[facility] Jinjqosjkv4408 [place] [phone]. Slick Broderick Platelet mean volume (Bld) [Entitic vol] 8.9 fL Critically low 9.5-13.5 [facility] Comment on above: Performed By: #### C BC ####[facility] Givaplryqm8496 [place] [phone]. Slick Broderick PLT 216 103/ul Normal 150-450 [facility] Comment on above: Performed By: #### C BC ####[facility] Xehttvpldv1095 [place] [phone]. Slcik Broderick RBC 3.04 106/ul Critically low 4.20-5.40 [facility] Comment on above: Performed By: #### C BC ####[facility] Aywhprbofs5377 [place] [address]Dr. Slick Broderick WBC 6.7 103/ul Normal 4.0-11.0 [facility] Comment on above: Performed By: #### C BC ####[facility] Jcyokyxkga5961 [place] [address]Dr. Slick Broderick BASO # 0.0 103/ul Normal 0.0-0.1 [facility] Comment on above: Performed By: #### C BC ####[facility] Pguxqasbbp1209 [place] [address]Dr. Silck Broderick Basophils/100 WBC (Bld) 0.5 % Normal 0.2-2.0 [facility] Comment on above: Performed By: #### C BC ####[facility] Nqeueprdsi6038 [place] [phone]. Slick Broderick EO # 0.4 103/ul Normal 0.0-0.7 [facility] Comment on above: Performed By: #### C BC ####[facility] Legplnzeir9623 [place] [address]Dr. Slick Broderick Eosinophils/100 WBC (Bld) 5.3 % Normal 0.9-7.0 [facility] Comment on above: Performed By: #### C BC ####[facility] Vlhaonsoyl6329 [place] [address]Dr. Slick Broderick Erythrocyte distribution width (RBC) [Ratio] 12.9 % Normal 11.0-15.0 [facility] Comment on above: Performed By: #### C BC ####[facility] Gyonsffgac5313 [place] [address]Dr. Slick Broderick Hematocrit (Bld) [Volume fraction] 23.9 % Critically low 36.0-48.0 [facility] Comment on above: Performed By: #### C BC ####[facility] Dppbnhwmsf9717 [place] [address]Dr. Slick Broderick Hemoglobin (Bld) [Mass/Vol] 7.7 g/dL Critically low 12.0-16.0 [facility] Comment on above: Performed By: #### C BC ####[facility] Bopxpvtmag97[address] [place], [place] [address]Dr. Slick Broderick IG # 0.04 10e3/ul Critically high 0.00-0.03 [facility] Comment on above: Performed By: #### C BC ####[facility] Qesxxrmhtu8173 [place] [address]Dr. Slick Broderick IG % 0.5 % Normal 0.0-0.5 [facility] Comment on above: Performed By: #### C BC ####[facility] Fgpyyfqknm[address] [place], [place] [address]Dr. Slick Broderick LYMPH # 0.9 103/ul Critically low 1.2-3.8 [facility] Comment on above: Performed By: #### C BC ####[facility] Scyjaemohy9753 [place] [address]Dr. Slick Davie Lymphocytes/100 WBC (Bld) 11.7 % Critically low 20.5-60.0 [facility] Comment on above: Performed By: #### C BC ####[facility] Scbugsicvj62[address] [place], [place] [address]Dr. Meaganwendie Broderick MANUAL DIFF REQ NO Normal [facility] Comment on above: Performed By: #### C BC ####[facility] Uilpywyrbc9384 [place] [phone]. Slick Broderick MCH (RBC) [Entitic mass] 30.1 pg Normal 26.7-34.0 [facility] Comment on above: Performed By: #### C BC ####[facility] Ndhkjbfvpb7740 [place] [address]Dr. Slick Broderick MCHC (RBC) [Mass/Vol] 32.2 g/dL Normal 29.9-35.2 [facility] Comment on above: Performed By: #### C BC ####[facility] Tejmpldyrq5636 [place] [phone]. Slick Davie MCV (RBC) [Entitic vol] 93.4 fL Normal 81.0-99.0 [facility] Comment on above: Performed By: #### C BC ####[facility] Ywzemyzklc[address] [place], [place] [address]Dr. Slick Broderick MONO # 0.9 103/ul Critically high 0.3-0.8 [facility] Comment on above: Performed By: #### C BC ####[facility] Foyouxvlck1334 [place] [address]Dr. Meaganwendie Broderick Monocytes/100 WBC (Bld) 12.0 % Normal 1.7-12.0 [facility] Comment on above: Performed By: #### C BC ####[facility] Avlfmlhton[address] [place], [place] [address]Dr. Meaganwendie Broderick NEUT # 5.4 103/ul Normal 1.4-6.5 [facility] Comment on above: Performed By: #### C BC ####[facility] Pwiitndysv[address] [place], [place] [address]Dr. Slick Broderick Neutrophils/100 WBC (Bld) 70.0 % Normal 43.0-75.0 [facility] Comment on above: Performed By: #### C BC ####[facility] Vuwxlmwodd7[address] [place], [place] [address]Dr. Slick Broderick Platelet mean volume (Bld) [Entitic vol] 9.0 fL Critically low 9.5-13.5 [facility] Comment on above: Performed By: #### C BC ####[facility] Tybacakmig3473 [place], [place] [address]Mz. Slick Broderick PLT 210 103/ul Normal 150-450 [facility] Comment on above: Performed By: #### C BC ####[facility] Vdghdjmnos9535 [place], [place] [address]Gv. Slick Broderick RBC 2.56 106/ul Critically low 4.20-5.40 [facility] Comment on above: Performed By: #### C BC ####[facility] Azqtrkxjkn8030 [place], [place] [address]Dc. Slick Broderick WBC 7.7 103/ul Normal 4.0-11.0 [facility] Comment on above: Performed By: #### C BC ####[facility] Mamijjulxy4374 [place], [place] [address]Jf. Slick Broderick CULTURE URINEon 03-28-2022 CULTURE URINE Culture Observations: NO GROWTH. Normal [facility] Comment on above: Performed By: #### U RCX ####[facility] Uqgcnkbguh4170 [place], [place] [address]Sp. Slick Broderick Covid-19 PCR (CVDTB)on 03-12 SARS-CoV-2 (COVID-19) RNA DONNIE+probe Ql (Unsp spec) Not detected Normal NOT DETECTED [facility] Comment on above: Result Comment: [...] for this test is supported by the [place] of Health and Human Service's declaration that [...] be used). Performed By: #### C VDTBH ####[facility] Yqytkxvwbl0334 [place] [address]Dr. Slick Broderick IRONon 03-28-2022 Iron [Mass/Vol] 32.0 ug/dL Critically low 50.0-170.0 [facility] Comment on above: Performed By: #### I YUNIOR ####[facility] Wmvinywtqp[address] [place], [place] [address]Dr. Slick Davie POINT OF CARE GLUCOSEon 03-12 Glucose [Mass/Vol] 119 mg/dL Critically high 74-106 [facility] Comment on above: Performed By: #### P OCGLUC ####[facility] Ihdvlrsnmo[address] [place], [place] [address]Dr. Slick Broderick Glucose [Mass/Vol] 178 mg/dL Critically high 74-106 [facility] Comment on above: Performed By: #### P OCGLUC ####[facility] Olcupmzwnx[address] [place], [place] [address]Dr. Slick Davie Glucose [Mass/Vol] 106 mg/dL Normal 74-106 [facility] Comment on above: Performed By: #### P OCGLUC ####[facility] Gqewgcsdww[address] [place], [place] [address]Dr. Slick Davie PROF CHEM 8 (BAS METB)on Anion gap [Moles/Vol] 9.5 mmol/L Normal [facility] Comment on above: Performed By: #### B MP ####[facility] Doneojnewy1099 [place] [address]Dr. Slick Broderick Calcium [Mass/Vol] 9.5 mg/dL Normal 8.5-10.1 [facility] Comment on above: Performed By: #### B MP ####[facility] Gpvjllsjsb1703 [place] [address]Dr. Meaganwendie Davie Chloride [Moles/Vol] 98 mmol/L Normal 98-107 [facility] Comment on above: Performed By: #### B MP ####[facility] Tlyvtiyhta7393 [place] [id number]. Slick Broderick CO2 [Moles/Vol] 28.5 mmol/L Normal 21.0-32.0 [facility] Comment on above: Performed By: #### B MP ####[facility] Xmpyxldcmp5620 [place] [id number]. Slick Broderick Creatinine [Mass/Vol] 1.90 mg/dL Critically high 0.55-1.02 [facility] Comment on above: Performed By: #### B MP ####[facility] Ezlqvuvlvc2993 [place] [id number]. Slick Broderick EGFR-AF DANISH 31 mL/min/1.73m2 Critically low >=60 [facility] Comment on above: Performed By: #### B MP ####[facility] Idzrhyldtb90[address] [place], [place] [address]Dr. Meaganwendie Davie EGFR-NON AF DANISH 26 mL/min/1.73m2 Critically low >=60 [facility] Comment on above: Performed By: #### B MP ####[facility] Miyvotzwqo6726 [place] [id number]. Slick Broderick Glucose [Mass/Vol] 102 mg/dL Normal 74-106 [facility] Comment on above: Performed By: #### B MP ####[facility] Dvamkdqsmh3896 [place] [address]Dr. Meaganwendie Broderick Potassium [Moles/Vol] 4.0 mmol/L Normal 3.5-5.1 [facility] Comment on above: Performed By: #### B MP ####[facility] Vulzzsfhjz4174 [place] [address]Dr. Meaganwendie Broderick Sodium [Moles/Vol] 132 mmol/L Critically low 136-145 [facility] Comment on above: Performed By: #### B MP ####[facility] Fxzfaqumau5[address] [place], [place] [address]Dr. Meaganwendie Broderick Urea nitrogen [Mass/Vol] 56.0 mg/dL Critically high 7.0-18.0 [facility] Comment on above: Performed By: #### B MP ####[facility] Xzamcrvzyr1007 [place] [address]Dr. Slick Broderick Urea nitrogen/Creatinine [Mass ratio] 29.5 mg/mg Normal [facility] Comment on above: Performed By: #### B MP ####[facility] Pqflifyekf3501 [place] [phone]. Slick Broderick T4on 03-28-2022 T4 [Mass/Vol] 4.90 ug/dL Normal 4.80-13.90 [facility] Comment on above: Performed By: #### T 4 ####[facility] Vxtysrqesm037[address] [place], [place] [address]Dr. Slick Broderick TSHon 03-28-2022 TSH 2.765 uIU/mL Normal 0.358-3.740 [facility] Comment on above: Performed By: #### T SH ####[facility] Gvcaoujqrc399[address] [place], [place] [address]Dr. Slick Broderick TYPE AND SCREENon 03-28-2022 TYPE AND SCREEN Negative Normal [facility] Comment on above: Performed By: #### T NS ####[facility] Ypqnmecfhl9925[address] [place], [place] [address]Dr. Slick Broderick UA RANDOM W/MICROSCOPICon BACTERIA NONE SEEN Normal NONE SEEN [facility] Comment on above: Performed By: #### U AMIC ####[facility] Rkzhnnecbb44[address] [place], [place] [address]Dr. Slick Broderick Bilirubin Ql (U) Negative Normal NEGATIVE [facility] Comment on above: Performed By: #### U AMIC ####[facility] Tzmfjthtor12[address] [place], [place] [address]Dr. Slick Broderick CAST NONE SEEN Normal NONE SEEN [facility] Comment on above: Performed By: #### U AMIC ####[facility] Zidcczonke6156[address] [place], [place] [address]Dr. Slick Broderick Clarity (U) CLEAR Normal CLEAR [facility] Comment on above: Performed By: #### U AMIC ####[facility] Hlfmmtjrlm9790 [place] [address]Dr. Slick Broderick Color (U) LT. YELLOW Normal YELLOW [facility] Comment on above: Performed By: #### U AMIC ####[facility] Rtsszlxfvw8684[address] [place], [place] [address]Dr. Slick Broderick Crystals LM Nom (Urine sed) NONE SEEN Normal NONE SEEN [facility] Comment on above: Performed By: #### U AMIC ####[facility] Kitrpdqlku7066[address] [place], [place] [address]Dr. Slick Broderick Epithelial cells LM Ql (Urine sed) FEW Abnormal NONE SEEN /RARE [facility] Comment on above: Performed By: #### U AMIC ####[facility] Cfpqhashdc7397[address] [place], [place] [address]Dr. Slick Broderick Glucose Ql (U) Negative Normal NEGATIVE [facility] Comment on above: Performed By: #### U AMIC ####[facility] Pdaqpantfo4524[address] [place], [place] [address]Dr. Slick Broderick Hemoglobin Ql (U) MODERATE Abnormal NEGATIVE [facility] Comment on above: Performed By: #### U AMIC ####[facility] Vpxjakethz5787[address] [place], [place] [address]Dr. Slick Broderick Ketones Ql (U) Negative Normal NEGATIVE [facility] Comment on above: Performed By: #### U AMIC ####[facility] Koxfviypnx7[address] [place], [place] [address]Dr. Slick Broderick LEUKOCYTES TRACE Abnormal NEGATIVE [facility] Comment on above: Performed By: #### U AMIC ####[facility] Ifnsiwuzpv0669 [place] [address]Dr. Slick Broderick MUCOUS NONE SEEN Normal NONE SEEN [facility] Comment on above: Performed By: #### U AMIC ####[facility] Uhmtirrsiz7636[address] [place], [place] [address]Dr. Slick Broderick Nitrite Ql (U) Negative Normal NEGATIVE [facility] Comment on above: Performed By: #### U AMIC ####[facility] Jluvhqgbqd8023[address] [place], [place] [address]Dr. Slick Broderick pH (U) 6.0 [pH] Normal 5-9 [facility] Comment on above: Performed By: #### U AMIC ####[facility] Bnnvbofxbg2394 [place] [phone]. Slick Broderick RBC 5-10 Abnormal 0-2 [facility] Comment on above: Performed By: #### U AMIC ####[facility] Wgkhfndfde5433 [place] [phone]. Slick Broderick SPEC GRAVITY <=1.005 Abnormal 1.005-<=1.0 25 [facility] Comment on above: Performed By: #### U AMIC ####[facility] Busehbedwr1329 [place] [address]Dr. Slick Broderick UA PROTEIN Negative Normal NEGATIVE/ TRACE [facility] Comment on above: Performed By: #### U AMIC ####[facility] Dwykxarulq6281 [place] [phone]. Slick Broderick Urobilinogen Qn (U) 0.2 {Hiren'U}/dL Normal 0.2 - 1. 0 [facility] Comment on above: Performed By: #### U AMIC ####[facility] Dcvvhvdalu2799 [place] [phone]. Slick Broderick WBC 2-5 Abnormal NONE SEEN [facility] Comment on above: Performed By: #### U AMIC ####[facility] Sfikyhdgim7893 [place] [phone]. Slick Broderick CBC AUTO DIFFon 03-27-2022 BASO # 0.0 103/ul Normal 0.0-0.1 [facility] Comment on above: Performed By: #### C BC ####[facility] Vlbdiibvxq9528 [place] [address]Dr. Slick Broderick Basophils/100 WBC (Bld) 0.5 % Normal 0.2-2.0 [facility] Comment on above: Performed By: #### C BC ####[facility] Paistooben5159 [place] [phone]. Slick Broderick EO # 0.4 103/ul Normal 0.0-0.7 [facility] Comment on above: Performed By: #### C BC ####[facility] Tnbvmihrfh7378 [place] [address]Dr. Slick Broderick Eosinophils/100 WBC (Bld) 5.2 % Normal 0.9-7.0 [facility] Comment on above: Performed By: #### C BC ####[facility] Vlbcktjsea9681 [place] [address]Dr. Slick Broderick Erythrocyte distribution width (RBC) [Ratio] 13.1 % Normal 11.0-15.0 [facility] Comment on above: Performed By: #### C BC ####[facility] Vekzkkcokw7268 [place] [address]Dr. Slick Broderick Hematocrit (Bld) [Volume fraction] 24.7 % Critically low 36.0-48.0 [facility] Comment on above: Performed By: #### C BC ####[facility] Ckwvfwevpd464[address] [place], [place] [address]Dr. Slick Broderick Hemoglobin (Bld) [Mass/Vol] 7.9 g/dL Critically low 12.0-16.0 [facility] Comment on above: Performed By: #### C BC ####[facility] Ilbqrewdmm23[address] [place], [place] [address]Dr. Slick Broderick IG # 0.06 10e3/ul Critically high 0.00-0.03 [facility] Comment on above: Performed By: #### C BC ####[facility] Prkqexoepl230[address] [place], [place] [address]Dr. Slick Broderick IG % 0.8 % Critically high 0.0-0.5 [facility] Comment on above: Performed By: #### C BC ####[facility] Txqrbcauii1496[address] [place], [place] [address]DrEmma Slick Broderick LYMPH # 0.9 103/ul Critically low 1.2-3.8 [facility] Comment on above: Performed By: #### C BC ####[facility] Kqebyrhbee739[address] [place], [place] [address]Dr. Slick Broderick Lymphocytes/100 WBC (Bld) 11.1 % Critically low 20.5-60.0 [facility] Comment on above: Performed By: #### C BC ####[facility] Arcgqouyti5041 [place] [address]DrEmma Broderick MANUAL DIFF REQ NO Normal [facility] Comment on above: Performed By: #### C BC ####[facility] Iitjkeqmho3966 [place] [address]DrEmma Broderick MCH (RBC) [Entitic mass] 29.7 pg Normal 26.7-34.0 [facility] Comment on above: Performed By: #### C BC ####[facility] Tecyaxruyj57[address] [place], [place] [address]DrEmma Broderick MCHC (RBC) [Mass/Vol] 32.0 g/dL Normal 29.9-35.2 [facility] Comment on above: Performed By: #### C BC ####[facility] Chcetvmdug6625[address] [place], [place] [address]DrEmma Broderick MCV (RBC) [Entitic vol] 92.9 fL Normal 81.0-99.0 [facility] Comment on above: Performed By: #### C BC ####[facility] Nzxajoxgir7816[address] [place], [place] [address]DrEmma Broderick MONO # 0.8 103/ul Normal 0.3-0.8 [facility] Comment on above: Performed By: #### C BC ####[facility] Wxllhdofaf1417[address] [place], [place] [address]DrEmma Broderick Monocytes/100 WBC (Bld) 9.5 % Normal 1.7-12.0 [facility] Comment on above: Performed By: #### C BC ####[facility] Vrxwuyitra058[address] [place], [place] [address]DrEmma Broderick NEUT # 5.8 103/ul Normal 1.4-6.5 [facility] Comment on above: Performed By: #### C BC ####[facility] Wyvpeipqdr4305[address] [place], [place] [address]DrEmma Broderick Neutrophils/100 WBC (Bld) 72.9 % Normal 43.0-75.0 [facility] Comment on above: Performed By: #### C BC ####[facility] Sfrrxirozh2218 [place] [address]Dr. Slick Broderick Platelet mean volume (Bld) [Entitic vol] 8.9 fL Critically low 9.5-13.5 [facility] Comment on above: Performed By: #### C BC ####[facility] Jipyelfijl0567 [place] [address]DrEmma Broderick PLT 220 103/ul Normal 150-450 [facility] Comment on above: Performed By: #### C BC ####[facility] Jpizpaociw1346 [place] [address]DrEmma Broderick RBC 2.66 106/ul Critically low 4.20-5.40 [facility] Comment on above: Performed By: #### C BC ####[facility] Wroqeewzkq1535[address] [place], [place] [address]DrEmma Broderick WBC 7.9 103/ul Normal 4.0-11.0 [facility] Comment on above: Performed By: #### C BC ####[facility] Ubfqogkcfg4846[address] [place], [place] [address]Dr. Slick Broderick OCC BLD IMMUNO SCREENon 03-12 OCCULT BLOOD Positive Abnormal NEGATIVE [facility] Comment on above: Performed By: #### O BSCRN ####[facility] Wkbfbpnctf780[address] [place], [place] [address]Dr. Slick Broderick PROF 14(COMP METB)on 022 Albumin [Mass/Vol] 3.2 g/dL Critically low 3.4-5.0 e [facility] Comment on above: Performed By: #### C MP ####[facility] Snbzwayyvp7598[address] [place], [place] [address]Dr. Slick Broderick Albumin/Globulin [Mass ratio] 0.9 {ratio} Normal [facility] Comment on above: Performed By: #### C MP ####[facility] Efmrvgrlsr0644[address] [place], [place] [address]Dr. Slick Broderick ALP [Catalytic activity/Vol] 101 U/L Normal 46-116 [facility] Comment on above: Performed By: #### C MP ####[facility] Ixdxflnzdq9046 [place] [phone]. Slick Broderick ALT [Catalytic activity/Vol] 28 U/L Normal 14-59 [facility] Comment on above: Performed By: #### C MP ####[facility] Xvioutnsfy4909 [place] [phone]. Slick Davie Anion gap [Moles/Vol] 11.5 mmol/L Normal Th e [facility] Comment on above: Performed By: #### C MP ####[facility] Hhgbobbgnv9898[address] [place], [place] [address]Dr. Slick Davie AST [Catalytic activity/Vol] 21 U/L Normal 15-37 [facility] Comment on above: Performed By: #### C MP ####[facility] Ubsjfbgvlu080[address] [place], [place] [address]Dr. Slick Davie Bilirubin [Mass/Vol] 0.2 mg/dL Normal 0.2-1.0 [facility] Comment on above: Performed By: #### C MP ####[facility] Afylyluzef1269[address] [place], [place] [address]Dr. Slick Davie Calcium [Mass/Vol] 9.3 mg/dL Normal 8.5-10.1 [facility] Comment on above: Performed By: #### C MP ####[facility] Ttjbgidjox2394[address] [place], [place] [address]Dr. Slick Davie Chloride [Moles/Vol] 93 mmol/L Critically low 98-107 [facility] Comment on above: Performed By: #### C MP ####[facility] Xdkbtbekza[address] [place], [place] [address]Dr. Slick Davie CO2 [Moles/Vol] 27.3 mmol/L Normal 21.0-32.[address] [facility] Comment on above: Performed By: #### C MP ####[facility] Hydkkgvarg07[address] [place], [place] [address]Dr. Slick Davie Creatinine [Mass/Vol] 1.98 mg/dL Critically high 0.55-1.02 [facility] Comment on above: Performed By: #### C MP ####[facility] Dkvcjswqja8558 [place] [address]Dr. Slick Broderick EGFR-AF DANISH 30 mL/min/1.73m2 Critically low >=60 [facility] Comment on above: Performed By: #### C MP ####[facility] Glqexefsvd4641 [place] [address]Dr. Slick Broderick EGFR-NON AF DANISH 25 mL/min/1.73m2 Critically low >=60 [facility] Comment on above: Performed By: #### C MP ####[facility] Tfbihzjdsr13[address] [place], [place] [address]Dr. Slick Broderick Globulin (S) [Mass/Vol] 3.6 g/dL Normal [facility] Comment on above: Performed By: #### C MP ####[facility] Ntfozucxts17[address] [place], [place] [address]Dr. Slick Broderick Glucose [Mass/Vol] 123 mg/dL Critically high 74-106 [facility] Comment on above: Performed By: #### C MP ####[facility] Ulvchenhct0163[address] [place], [place] [address]Dr. Slick Broderick Potassium [Moles/Vol] 3.8 mmol/L Normal 3.5-5.1 [facility] Comment on above: Performed By: #### C MP ####[facility] Jugkzozphb2187 [place] [address]Dr. Slick Broderick Protein [Mass/Vol] 6.8 g/dL Normal 6.4-8.2 [facility] Comment on above: Performed By: #### C MP ####[facility] Jigwrezgkn3590 [place] [address]Dr. Slick Broderick Sodium [Moles/Vol] 128 mmol/L Critically low 136-145 [facility] Comment on above: Performed By: #### C MP ####[facility] Tmbyvmjqso9349 [place] [address]Dr. Slick Broderick Urea nitrogen [Mass/Vol] 64.0 mg/dL Critically high 7.0-18.0 [facility] Comment on above: Performed By: #### C MP ####[facility] Oaetzcgikw5300 [place], [place] [address]Gd. Slick Broderick Urea nitrogen/Creatinine [Mass ratio] 32.3 mg/mg Normal [facility] Comment on above: Performed By: #### C MP ####[facility] Axdgejqdgp5193 [place], [place] [address]Cy. Slick Broderick TROPONIN, HIGH SENSITIVITYon 03-27-2022 HSTROP 9.0 pg/mL Normal 4.0-51.3 [facility] Comment on above: Result Comment: CUT- OFF POINTS HAVE BEEN ESTABLISHED BASED ON THE FOURTH UNIVERSAL DEFINITIONS OF MYOCARDIALINFARCTION. THE UPPER REFERENCE LIMIT (URL) OF TROPONIN, DEFINED THE 99TH PERCENTILE OFcTnI DISTRIBUTION IN A REFERENCE POPULATION, HAS BEEN CONFIRMED THE DECISION THRESHOLDFOR DC DIAGNOSIS. Performed By: #### H STROPN ####[facility] Wwijcifmco8048 [place] [phone]. Slick Broderick Progress Noteson 03-24-2022 Complaint Investigations Officer Authentication Interface Message Text 1:32 AM EMERGENCY TRIAGE, TREAT AND TRANSPORT (ET3) DOCUMENTATION OF TELEHEALTH VISIT Date / Time: 03/24/2022 / 1:32 AM Name: Linda Nascimento : 1950 SSN: [id number] EMS Agency: [facility] [] Verbal consent obtained [x] [...] Completed by: Chidi Conte MD Normal [facility] [employer] [facility] T4, T3U, FTI LABCORPon 02-12 Free Thyroxine Index 2.3 Normal 1.2-4.9 [facility] Comment on above: Performed By: #### T HYLC ####[facility] Niarxaknsc9525 [place] [phone]. Slick Broderick T3 Uptake 31 % Normal 24-39 [facility] Comment on above: Performed By: #### T HYLC ####[facility] Hactkgyqfw8641 [place], [place] [address]Yz. Slick Broderick T4 [Mass/Vol] 7.4 ug/dL Normal 4.5-12.0 [facility] Comment on above: Performed By: #### T HYLC ####[facility] Vnlljccuac9140 [place] [phone]. Slick Broderick VIT D 25-OH LABCORPon 2021 Vitamin D, 25-Hydroxy 58.7 ng/mL Normal 30.0-100.0 [facility] Comment on above: Result Comment: Karla min D deficiency has been defined by the [place] ofMedicine and an Endocrine Society practice guideline as alevel of serum 25-OH vitamin D less than 20 ng/mL (1,2).The Endocrine Society went on to further define vitamin Dinsufficiency as a level between 21 and 29 ng/mL (2).1. IOM ([place] of Medicine). 2010. Dietary reference intakes for calcium and D. [place]: The National Academies Press.2. Maryam MF, Franklin PENA, Ángela SCHAEFER, et al. Evaluation, treatment, and prevention of vitamin D deficiency: an Endocrine Society clinical practice guideline. JCEM. 2010; 96(7):1911-30. Performed By: #### V ITADLC ####[facility] Dldlleutng7981 [place] [address]Dr. Slick Broderick CBC AUTO DIFFon 02-11-2022 BASO # 0.0 103/ul Normal 0.0-0.1 [facility] Comment on above: Performed By: #### C BC ####[facility] Krmigvzcir4493 [place] [address]Dr. Slick Broderick Basophils/100 WBC (Bld) 0.6 % Normal 0.2-2.0 [facility] Comment on above: Performed By: #### C BC ####[facility] Lnyrhwmtiw9[address] [place], [place] [address]Dr. Slick Broderick EO # 0.3 103/ul Normal 0.0-0.7 [facility] Comment on above: Performed By: #### C BC ####[facility] Cghmnwegbu0960 [place] [address]Dr. Slick Broderick Eosinophils/100 WBC (Bld) 4.6 % Normal 0.9-7.0 [facility] Comment on above: Performed By: #### C BC ####[facility] Rapieptzml[address] [place], [place] [address]Dr. Slick Broderick Erythrocyte distribution width (RBC) [Ratio] 14.0 % Normal 11.0-15.0 [facility] Comment on above: Performed By: #### C BC ####[facility] Ishlwggcfp99[address] [place], [place] [address]Dr. Slick Broderick Hematocrit (Bld) [Volume fraction] 28.4 % Critically low 36.0-48.0 [facility] Comment on above: Performed By: #### C BC ####[facility] Cklzvqinol155[address] [place], [place] [address]Dr. Slick Broderick Hemoglobin (Bld) [Mass/Vol] 9.3 g/dL Critically low 12.0-16.0 [facility] Comment on above: Performed By: #### C BC ####[facility] Nxxodsfjlx1424 [place] [address]DrEmma Rhodeswendie Davie IG # 0.03 10e3/ul Normal 0.00-0.03 [facility] Comment on above: Performed By: #### C BC ####[facility] Dwkaiqzgzw3748 [place] [address]DrEmma Broderick IG % 0.5 % Normal 0.0-0.5 [facility] Comment on above: Performed By: #### C BC ####[facility] Lzruxwzjkt4176 [place] [address]DrEmma Broderick LYMPH # 0.6 103/ul Critically low 1.2-3.8 [facility] Comment on above: Performed By: #### C BC ####[facility] Epweskghbk2255 [place] [address]DrEmma Broderick Lymphocytes/100 WBC (Bld) 9.5 % Critically low 20.5-60.0 [facility] Comment on above: Performed By: #### C BC ####[facility] Cthznxzwst6549 [place] [address]DrEmma Broderick MANUAL DIFF REQ NO Normal [facility] Comment on above: Performed By: #### C BC ####[facility] Phnxdjpmnd5573 [place] [address]DrEmma Broderick MCH (RBC) [Entitic mass] 30.5 pg Normal 26.7-34.0 [facility] Comment on above: Performed By: #### C BC ####[facility] Axpxckyfvz5756 [place] [address]DrEmma Broderick MCHC (RBC) [Mass/Vol] 32.7 g/dL Normal 29.9-35.2 [facility] Comment on above: Performed By: #### C BC ####[facility] Vbbdsydkxw4384 [place] [address]DrEmma Broderick MCV (RBC) [Entitic vol] 93.1 fL Normal 81.0-99.0 [facility] Comment on above: Performed By: #### C BC ####[facility] [address] [place] [address]Dr. Slick Broderick MONO # 0.6 103/ul Normal 0.3-0.8 [facility] Comment on above: Performed By: #### C BC ####[facility] Ovuhsttjpt[address] [place] [address]Dr. Slick Davie Monocytes/100 WBC (Bld) 8.4 % Normal 1.7-12.0 [facility] Comment on above: Performed By: #### C BC ####[facility] Rlehkecjme9[address] [place] [address]Dr. Slick Broderick NEUT # 5.0 103/ul Normal 1.4-6.5 [facility] Comment on above: Performed By: #### C BC ####[facility] Ekokocnpzt0556 [place] [address]Dr. Slick Davie Neutrophils/100 WBC (Bld) 76.4 % Critically high 43.0-75.0 [facility] Comment on above: Performed By: #### C BC ####[facility] Mcnlpasadp[address] [place], [place] [address]Dr. Slick Broderick Platelet mean volume (Bld) [Entitic vol] 9.3 fL Critically low 9.5-13.5 [facility] Comment on above: Performed By: #### C BC ####[facility] Pxrnfksnkz97[address] [place] [address]Dr. Slick Davie PLT 192 103/ul Normal 150-450 [facility] Comment on above: Performed By: #### C BC ####[facility] Jzwpquppmc[address] [place] [id number]. Meaganwendie Davie RBC 3.05 106/ul Critically low 4.20-5.40 [facility] Comment on above: Performed By: #### C BC ####[facility] Feikpmzozu[address] [place] [phone]. Meaganwendie Davie WBC 6.6 103/ul Normal 4.0-11.0 [facility] Comment on above: Performed By: #### C BC ####[facility] Czypsoabuz0974 [place], [place] [address]Hc. Slick Broderick IRONon 02-11-2022 Iron [Mass/Vol] 62.0 ug/dL Normal 50.0-170.0 [facility] Comment on above: Performed By: #### I YUNIOR ####[facility] Dlvpvtkveo7[address] [place] [phone]. Slick Broderick LIPID PROFILEon 02-11-2022 CHOL-HDL RATIO NORM SEE BELOW Normal [facility] Comment on above: Result Comment: 3.3 - 4.4 LOW RISK 4.4 - 7.1 AVERAGE RISK 7.1 - 11.0 MODERATE RISK >11.0 HIGH RISK Performed By: #### C MP, LIPID, TSH ####[facility] Rfmgenpxiy8978 [place] [phone]. Slick Broderick Cholesterol [Mass/Vol] 204 mg/dL Critically high <=200 [facility] Comment on above: Performed By: #### C MP, LIPID, TSH ####[facility] Qfbaybkrga4459 [place], [place] [address]Xh. Slick Broderick Cholesterol in HDL [Mass/Vol] 53 mg/dL Normal 40-60 [facility] Comment on above: Performed By: #### C MP, LIPID, TSH ####[facility] Fvamcommyl9769 [place] [phone]. Slick Broderick Cholesterol in LDL [Mass/Vol] 134.0 mg/dL Normal [facility] Comment on above: Performed By: #### C MP, LIPID, TSH ####[facility] Wgwamjbjae0470 [place], [place] [address]Sq. Slick Davie Cholesterol.total/Corinne sterol in HDL [Mass ratio] 3.8 {ratio} Normal [facility] Comment on above: Performed By: #### C MP, LIPID, TSH ####[facility] Hyjnzwehpp5514 [place] [phone]. Slick Davie HDL NORMAL > or = 60 mg/dl - LOW CARDIOVASCULAR RISK <40 mg/dl - HIGH CARDIOVASCULAR RISK Normal [facility] Comment on above: Performed By: #### C MP, LIPID, TSH ####[facility] Cyskuoziyr8855 [place] [address]Dr. Slick Broderick LDL CALC NORMAL SEE BELOW Normal [facility] Comment on above: Result Comment: <100 mg/dl OPTIMAL 100 - 129 mg/dl NEAR OR ABOVE OPTIMAL 130 - 159 mg/dl BORDERLINE HIGH 160 - 189 mg/dl HIGH >190 mg/dl VERY HIGH Performed By: #### C MP, LIPID, TSH ####[facility] Xxodjhzxxh5948 [place] [address]Dr. Slick Broderick Triglyceride [Mass/Vol] 85 mg/dL Normal <=150 T [facility] Comment on above: Performed By: #### C MP, LIPID, TSH ####[facility] Baypajfups8072 [place] [address]Dr. Slick Broderick VLDL CALC 17.0 mg/dL Normal [facility] Comment on above: Performed By: #### C MP, LIPID, TSH ####[facility] Xiiajfvpfz6685 [place] [address]Dr. Slick Broderick PROF 14(COMP METB)on 022 Albumin [Mass/Vol] 3.5 g/dL Normal 3.4-5.0 [facility] Comment on above: Performed By: #### C MP, LIPID, TSH ####[facility] Xuksqitbay7985 [place] [address]Dr. Slick Broderick Albumin/Globulin [Mass ratio] 0.9 {ratio} Normal [facility] Comment on above: Performed By: #### C MP, LIPID, TSH ####[facility] Oehwwggyla[address] [place] [address]Dr. Slick Broderick ALP [Catalytic activity/Vol] 93 U/L Normal 46-116 [facility] Comment on above: Performed By: #### C MP, LIPID, TSH ####[facility] Hqxqwgljup5364 [place] [address]Dr. Slick Broderick ALT [Catalytic activity/Vol] 21 U/L Normal 14-59 [facility] Comment on above: Performed By: #### C MP, LIPID, TSH ####[facility] Wulgiwyxun5547 [place] [phone]. Slick Broderick Anion gap [Moles/Vol] 13.7 mmol/L Normal Th [facility] Comment on above: Performed By: #### C MP, LIPID, TSH ####[facility] Kclqwognlh0730 [place] [phone]. Slick Broderick AST [Catalytic activity/Vol] 13 U/L Critically low 15-37 [facility] Comment on above: Performed By: #### C MP, LIPID, TSH ####[facility] Jbrmkgupwr6222 [place] [address]Dr. Slick Broderick Bilirubin [Mass/Vol] 0.4 mg/dL Normal 0.2-1.0 [facility] Comment on above: Performed By: #### C MP, LIPID, TSH ####[facility] Jrolbsjyei[address] [place], [place] [address]Dr. Slick Broderick Calcium [Mass/Vol] 9.2 mg/dL Normal 8.5-10.1 [facility] Comment on above: Performed By: #### C MP, LIPID, TSH ####[facility] Aqznyuiwpb8773 [place] [address]Dr. Slick Broderick Chloride [Moles/Vol] 96 mmol/L Critically low 98-107 [facility] Comment on above: Performed By: #### C MP, LIPID, TSH ####[facility] Zpoxccgkua5537 [place] [address]Dr. Slick Broderick CO2 [Moles/Vol] 27.8 mmol/L Normal 21.0-32.[address] [facility] Comment on above: Performed By: #### C MP, LIPID, TSH ####[facility] Nkjepddrcl0250 [place] [address]Dr. Silck Broderick Creatinine [Mass/Vol] 1.52 mg/dL Critically high 0.55-1.02 [facility] Comment on above: Performed By: #### C MP, LIPID, TSH ####[facility] Pqiiwyketi38[address] [place], [place] [address]Dr. Slick Broderick EGFR-AF DANISH 41 mL/min/1.73m2 Critically low >=60 [facility] Comment on above: Performed By: #### C MP, LIPID, TSH ####[facility] Vghcdilkuw5853 [place] [address]Dr. Slick Broderick EGFR-NON AF DANISH 34 mL/min/1.73m2 Critically low >=60 [facility] Comment on above: Performed By: #### C MP, LIPID, TSH ####[facility] Imimxhjlvv4176 [place] [address]Dr. Slick Broderick Globulin (S) [Mass/Vol] 3.7 g/dL Normal T [facility] Comment on above: Performed By: #### C MP, LIPID, TSH ####[facility] Pjytdbznec3222 [place] [address]Dr. Slick Broderick Glucose [Mass/Vol] 96 mg/dL Normal 74-106 [facility] Comment on above: Performed By: #### C MP, LIPID, TSH ####[facility] Wbjfwgltau7761 [place] [address]Dr. Slick Broderick Potassium [Moles/Vol] 4.5 mmol/L Normal 3.5-5.1 [facility] Comment on above: Performed By: #### C MP, LIPID, TSH ####[facility] Avaqhctzwa2424 [place] [address]Dr. Slick Broderick Protein [Mass/Vol] 7.2 g/dL Normal 6.4-8.2 [facility] Comment on above: Performed By: #### C MP, LIPID, TSH ####[facility] Isbgxvvrns6564 [place] [address]Dr. Slick Broderick Sodium [Moles/Vol] 133 mmol/L Critically low 136-145 Th [facility] Comment on above: Performed By: #### C MP, LIPID, TSH ####[facility] Vabcxvcxxp2565 [place] [address]Dr. Slick Broderick Urea nitrogen [Mass/Vol] 37.0 mg/dL Critically high 7.0-18.0 [facility] Comment on above: Performed By: #### C MP, LIPID, TSH ####[facility] Ngohqcefia1710 [place] [address]Dr. Slick Broderick Urea nitrogen/Creatinine [Mass ratio] 24.3 mg/mg Normal [facility] Comment on above: Performed By: #### C MP, LIPID, TSH ####[facility] Bijffxyhlz[address] [place], [place] [address]Dr. Slick Broderick TSHon 02-11-2022 TSH 3.993 uIU/mL Critically high 0.358-3.740 [facility] Comment on above: Performed By: #### C MP, LIPID, TSH ####[facility] Nnieazxbdd4[address] [place], [place] [address]Dr. Slick Broderick PRBC LEUKOREDUCEDon 12-18-19 PRBC LEUKOREDUCED Normal [facility] Comment on above: Performed By: #### P RBC ####[facility] Xfrcyjizpb7[address] [place], [place] [address]Dr. Slick Broderick PRBC LEUKOREDUCED Cross Match Result Compatible Unit Blood Type O Pos Unit Number [id number] Status Information Transfused Product ID Red Blood Cells Product Code [id number] [facility] Comment on above: Performed By: #### P RBC ####[facility] Mgitskunxo83[address] [place], [place] [address]Dr. Slick Broderick H PYLORI ANTIBODY IGGon H. PYLORI IGG ABS 0.18 Index Value Normal 0.00-0.79 [facility] Comment on above: Result Comment: Nega tive <0.80 Equivocal 0.80 - 0.89 Positive >0.89 Performed By: #### H PYLLC ####[facility] Ufamcmbkod67[address] [place], [place] [address]Dr. Slick Broderick BNPon 12-14-2021 Natriuretic peptide B (Bld) [Mass/Vol] 846.0 pg/mL Normal <=900.0 [facility] Comment on above: Performed By: #### C MP, BNP ####[facility] Sbeexdztgq[address] [place], [place] [address]Dr. Slick Broderick CBC AUTO DIFFon 12-14-2021 BASO # 0.1 103/ul Normal 0.0-0.1 [facility] Comment on above: Performed By: #### C BC ####[facility] Rwlpbjnrwh5037 [place] [phone]. Slick Broderick Basophils/100 WBC (Bld) 0.7 % Normal 0.2-2.0 [facility] Comment on above: Performed By: #### C BC ####[facility] Ohawetuwep2310 [place] [address]Dr. Slick Broderick EO # 0.3 103/ul Normal 0.0-0.7 [facility] Comment on above: Performed By: #### C BC ####[facility] Vfctblvhnm[address] [place], [place] [address]Dr. Slick Broderick Eosinophils/100 WBC (Bld) 4.6 % Normal 0.9-7.0 [facility] Comment on above: Performed By: #### C BC ####[facility] Ydbhnqvehs[address] [place], [place] [address]Dr. Slick Broderick Erythrocyte distribution width (RBC) [Ratio] 20.0 % Critically high 11.0-15.0 [facility] Comment on above: Performed By: #### C BC ####[facility] Wyjlxkfkdj5450 [place] [phone]. Slick Broderick Hematocrit (Bld) [Volume fraction] 29.1 % Critically low 36.0-48.0 [facility] Comment on above: Performed By: #### C BC ####[facility] Omryyfsa[address] [place], [place] [id number]. Slick Broderick Hemoglobin (Bld) [Mass/Vol] 9.1 g/dL Critically low 12.0-16.0 [facility] Comment on above: Performed By: #### C BC ####[facility] Pgnvkdejrt1669 [place] [phone]. Slick Davei IG # 0.06 10e3/ul Critically high 0.00-0.03 [facility] Comment on above: Performed By: #### C BC ####[facility] Liotxnyfdd3552 [place], [place] [address]Mj. Slick Broderick IG % 0.9 % Critically high 0.0-0.5 [facility] Comment on above: Performed By: #### C BC ####[facility] Muhotaxhzp2499 [place], [place] [address]Ky. Slick Broderick LYMPH # 0.8 103/ul Critically low 1.2-3.8 [facility] Comment on above: Performed By: #### C BC ####[facility] Bvtjlrviuu2243 [place] [phone]. Slick Broderick Lymphocytes/100 WBC (Bld) 11.2 % Critically low 20.5-60.0 [facility] Comment on above: Performed By: #### C BC ####[facility] Oakwnkxmuk7403 [place] [phone]. Slick Broderick MANUAL DIFF REQ NO Normal [facility] Comment on above: Performed By: #### C BC ####[facility] Fybzqjdywc9452 [place] [phone]. Slick Broderick MCH (RBC) [Entitic mass] 30.5 pg Normal 26.7-34.0 [facility] Comment on above: Performed By: #### C BC ####[facility] Wnakxjljnm6276 [place] [phone]. Slick Broderick MCHC (RBC) [Mass/Vol] 31.3 g/dL Normal 29.9-35.2 [facility] Comment on above: Performed By: #### C BC ####[facility] Wxbmoxsvmy4850 [place] [phone]. Slick Broderick MCV (RBC) [Entitic vol] 97.7 fL Normal 81.0-99.0 [facility] Comment on above: Performed By: #### C BC ####[facility] Lfgnevxdtz8178 [place] [phone]. Slick Broderick MONO # 0.7 103/ul Normal 0.3-0.8 [facility] Comment on above: Performed By: #### C BC ####[facility] Jbxhxramdy6358 [place] [phone]. Slick Broderick Monocytes/100 WBC (Bld) 9.7 % Normal 1.7-12.0 [facility] Comment on above: Performed By: #### C BC ####[facility] Ojqorqpsma7002 [place] [phone]. Slick Broderick NEUT # 4.9 103/ul Normal 1.4-6.5 [facility] Comment on above: Performed By: #### C BC ####[facility] Lxfsvpicfq1903 [place] [phone]. Slick Broderick Neutrophils/100 WBC (Bld) 72.9 % Normal 43.0-75.0 [facility] Comment on above: Performed By: #### C BC ####[facility] Zzhkzmeasj4327 [place] [phone]. Slick Broderick Platelet mean volume (Bld) [Entitic vol] 8.9 fL Critically low 9.5-13.5 [facility] Comment on above: Performed By: #### C BC ####[facility] Lzueqbecfx7708 [place] [phone]. Slick Broderick PLT 239 103/ul Normal 150-450 [facility] Comment on above: Performed By: #### C BC ####[facility] Kjgiogtegc4335 [place] [phone]. Slick Broderick RBC 2.98 106/ul Critically low 4.20-5.40 [facility] Comment on above: Performed By: #### C BC ####[facility] Ycaosclglm1347 [place] [phone]. Slick Broderick WBC 6.8 103/ul Normal 4.0-11.0 [facility] Comment on above: Performed By: #### C BC ####[facility] Qngylndqwi1155 [place] [address]Dr. Slick Broderick BASO # 0.1 103/ul Normal 0.0-0.1 [facility] Comment on above: Performed By: #### C BC ####[facility] Ptzgbhuuiz2221 [place] [address]Dr. Slick Broderick Basophils/100 WBC (Bld) 0.9 % Normal 0.2-2.0 [facility] Comment on above: Performed By: #### C BC ####[facility] Vukkymjhzy3178 [place] [address]Dr. Slick Broderick EO # 0.3 103/ul Normal 0.0-0.7 [facility] Comment on above: Performed By: #### C BC ####[facility] Pwhahjksrm02[address] [place], [place] [address]Dr. Slick Broderick Eosinophils/100 WBC (Bld) 4.9 % Normal 0.9-7.0 [facility] Comment on above: Performed By: #### C BC ####[facility] Nxtglrdcid52[address] [place], [place] [address]Dr. Slick Broderick Erythrocyte distribution width (RBC) [Ratio] 20.3 % Critically high 11.0-15.0 [facility] Comment on above: Performed By: #### C BC ####[facility] Ohnjqbzlqq37[address] [place], [place] [address]Dr. Slick Broderick Hematocrit (Bld) [Volume fraction] 27.6 % Critically low 36.0-48.0 [facility] Comment on above: Performed By: #### C BC ####[facility] Rvcneysscf45[address] [place], [place] [address]Dr. Slick Broderick Hemoglobin (Bld) [Mass/Vol] 8.7 g/dL Critically low 12.0-16.0 [facility] Comment on above: Performed By: #### C BC ####[facility] Egwrbpurcs8205 [place] [address]Dr. Slick Broderick IG # 0.05 10e3/ul Critically high 0.00-0.03 [facility] Comment on above: Performed By: #### C BC ####[facility] Yibhvwsxwt16[address] [place], [place] [address]Dr. Slick Broderick IG % 0.7 % Critically high 0.0-0.5 [facility] Comment on above: Performed By: #### C BC ####[facility] Taozamicwy3596 [place], [place] [address]Qx. Slick Broderick LYMPH # 0.9 103/ul Critically low 1.2-3.8 [facility] Comment on above: Performed By: #### C BC ####[facility] Angfvyyfeh5784 [place], [place] [address]Uf. Slick Broderick Lymphocytes/100 WBC (Bld) 13.1 % Critically low 20.5-60.0 [facility] Comment on above: Performed By: #### C BC ####[facility] Ncgdgiiwyg7201 [place] [phone]. Slick Davie MANUAL DIFF REQ NO Normal [facility] Comment on above: Performed By: #### C BC ####[facility] Fydvicfzsy5431 [place] [phone]. Slick Davie MCH (RBC) [Entitic mass] 31.0 pg Normal 26.7-34.0 [facility] Comment on above: Performed By: #### C BC ####[facility] Idgtimuftx8465 [place] [phone]. Slick Broderick MCHC (RBC) [Mass/Vol] 31.5 g/dL Normal 29.9-35.2 [facility] Comment on above: Performed By: #### C BC ####[facility] Tgfodbqisc8625 [place] [phone]. Slick Davie MCV (RBC) [Entitic vol] 98.2 fL Normal 81.0-99.0 [facility] Comment on above: Performed By: #### C BC ####[facility] Wobwktxihx9738 [place] [phone]. Slick Broderick MONO # 0.8 103/ul Normal 0.3-0.8 [facility] Comment on above: Performed By: #### C BC ####[facility] Exftxdfnpr6689 [place] [phone]. Slick Davie Monocytes/100 WBC (Bld) 11.4 % Normal 1.7-12.0 [facility] Comment on above: Performed By: #### C BC ####[facility] Otniztghhn3469 [place] [id number]. Slick Broderick NEUT # 4.8 103/ul Normal 1.4-6.5 [facility] Comment on above: Performed By: #### C BC ####[facility] Jnrskwwixn6964 [place], [place] [address]Fe. Slick Broderick Neutrophils/100 WBC (Bld) 69.0 % Normal 43.0-75.0 [facility] Comment on above: Performed By: #### C BC ####[facility] Tdsdxpwxea0356 [place] [phone]. Slick Broderick Platelet mean volume (Bld) [Entitic vol] 9.3 fL Critically low 9.5-13.5 [facility] Comment on above: Performed By: #### C BC ####[facility] Dneiobhvcm8252 [place] [phone]. Slick Broderick PLT 229 103/ul Normal 150-450 [facility] Comment on above: Performed By: #### C BC ####[facility] Ydsabgbzpy6587 [place] [phone]. Slick Broderick RBC 2.81 106/ul Critically low 4.20-5.40 [facility] Comment on above: Performed By: #### C BC ####[facility] Glgrijywcg4354 [place] [phone]. Slick Broderick WBC 7.0 103/ul Normal 4.0-11.0 [facility] Comment on above: Performed By: #### C BC ####[facility] Upgoawnqmy4598 [place] [phone]. Slick Broderick POINT OF CARE GLUCOSEon Glucose [Mass/Vol] 255 mg/dL Critically high 74-106 [facility] Comment on above: Performed By: #### P OCGLUC ####[facility] Eradlpusfh5637 [place] [phone] Broderick PROF 14(COMP METB)on 022 Albumin [Mass/Vol] 2.3 g/dL Critically low 3.4-5.0 [facility] Comment on above: Performed By: #### C MP, BNP ####[facility] Pwvcqqdlto8359 [place] [address]Dr. Slick Broderick Albumin/Globulin [Mass ratio] 0.6 {ratio} Normal [facility] Comment on above: Performed By: #### C MP, BNP ####[facility] Qvldfpdoyc1308 [place] [phone]. Slick Broderick ALP [Catalytic activity/Vol] 94 U/L Normal 46-116 [facility] Comment on above: Performed By: #### C MP, BNP ####[facility] Rkumiiibtf5065 [place] [address]Dr. Slick Broderick ALT [Catalytic activity/Vol] 17 U/L Normal 14-59 [facility] Comment on above: Performed By: #### C MP, BNP ####[facility] Gmwhbfqoln1218 [place] [address]Dr. Slick Broderick Anion gap [Moles/Vol] 11.6 mmol/L Normal [facility] Comment on above: Performed By: #### C MP, BNP ####[facility] Qbowuirxwp0314 [place] [address]Dr. Slick Broderick AST [Catalytic activity/Vol] 13 U/L Critically low 15-37 [facility] Comment on above: Performed By: #### C MP, BNP ####[facility] Fhpnzksetb4168 [place] [address]Dr. Slick Broderick Bilirubin [Mass/Vol] 0.3 mg/dL Normal 0.2-1.0 [facility] Comment on above: Performed By: #### C MP, BNP ####[facility] Cxzceldpqc7935 [place] [phone]. Slick Broderick Calcium [Mass/Vol] 7.9 mg/dL Critically low 8.5-10.1 [facility] Comment on above: Performed By: #### C MP, BNP ####[facility] Aoqfeyqbif5951 [place] [address]Dr. Slick Broderick Chloride [Moles/Vol] 104 mmol/L Normal 98-107 [facility] Comment on above: Performed By: #### C MP, BNP ####[facility] Bezrpnrrqr9759 [place] [address]Dr. Slick Broderick CO2 [Moles/Vol] 25.1 mmol/L Normal 21.0-32.0 [facility] Comment on above: Performed By: #### C MP, BNP ####[facility] Ghzztzlpkm4483 [place] [address]Dr. Slick Broderick Creatinine [Mass/Vol] 1.64 mg/dL Critically high 0.55-1.02 [facility] Comment on above: Performed By: #### C MP, BNP ####[facility] Ygfocxlssg04[address] [place], [place] [address]Dr. Slick Broderick EGFR-AF DANISH 37 mL/min/1.73m2 Critically low >=60 [facility] Comment on above: Performed By: #### C MP, BNP ####[facility] Fpcudxfiyo6[address] [place], [place] [address]Dr. Slick Broderick EGFR-NON AF DANISH 31 mL/min/1.73m2 Critically low >=60 [facility] Comment on above: Performed By: #### C MP, BNP ####[facility] Zckrgppqbi33[address] [place], [place] [address]Dr. Slick Broderick Globulin (S) [Mass/Vol] 3.6 g/dL Normal [facility] Comment on above: Performed By: #### C MP, BNP ####[facility] Wduzcxratz9589 [place] [address]Dr. Slick Broderick Glucose [Mass/Vol] 100 mg/dL Normal 74-106 [facility] Comment on above: Performed By: #### C MP, BNP ####[facility] Swmbqhiiwr23[address] [place], [place] [address]Dr. Slick Broderick Potassium [Moles/Vol] 4.7 mmol/L Normal 3.5-5.1 [facility] Comment on above: Performed By: #### C MP, BNP ####[facility] Vguucfijqu[address] [place], [place] [address]Dr. Slick Broderick Protein [Mass/Vol] 5.9 g/dL Critically low 6.4-8.2 [facility] Comment on above: Performed By: #### C MP, BNP ####[facility] Hvpqdqhmei9924 [place] [address]Dr. Slick Broderick Sodium [Moles/Vol] 136 mmol/L Normal 136-145 [facility] Comment on above: Performed By: #### C MP, BNP ####[facility] Qnbmemrwwy5897 [place] [address]Dr. Slick Broderick Urea nitrogen [Mass/Vol] 27.0 mg/dL Critically high 7.0-18.0 [facility] Comment on above: Performed By: #### C MP, BNP ####[facility] Wigapkdhto[address] [place], [place] [address]Dr. Slick Broderick Urea nitrogen/Creatinine [Mass ratio] 16.5 mg/mg Normal [facility] Comment on above: Performed By: #### C MP, BNP ####[facility] Ckyfogolyt[address] [place], [place] [address]Dr. Slick Broderick CBC AUTO DIFFon 12-13-2021 BASO # 0.0 103/ul Normal 0.0-0.1 [facility] Comment on above: Performed By: #### C BC ####[facility] Trvpcodgae[address] [place], [place] [address]Dr. Slick Broderick Basophils/100 WBC (Bld) 0.5 % Normal 0.2-2.0 [facility] Comment on above: Performed By: #### C BC ####[facility] Cnffnhzmcz[address] [place], [place] [address]Dr. Slick Broderick EO # 0.3 103/ul Normal 0.0-0.7 [facility] Comment on above: Performed By: #### C BC ####[facility] Iyxjgyxyqm0141 [place] [address]Dr. Slick Broderick Eosinophils/100 WBC (Bld) 4.4 % Normal 0.9-7.0 [facility] Comment on above: Performed By: #### C BC ####[facility] Xlelwlwwos8805 [place] [id number]. Slick Broderick Erythrocyte distribution width (RBC) [Ratio] 20.5 % Critically high 11.0-15.0 [facility] Comment on above: Performed By: #### C BC ####[facility] Ycnesmgfec4563 [place] [address]Dr. Slick Broderick Hematocrit (Bld) [Volume fraction] 29.5 % Critically low 36.0-48.0 [facility] Comment on above: Performed By: #### C BC ####[facility] Rdugejffso8684 [place] [address]Dr. Slick Broderick Hemoglobin (Bld) [Mass/Vol] 9.3 g/dL Critically low 12.0-16.0 [facility] Comment on above: Result Comment: post transfusion Performed By: #### C BC ####[facility] Bxyerqbfdt[address] [place], [place] [address]Dr. Slick Broderick IG # 0.07 10e3/ul Critically high 0.00-0.03 [facility] Comment on above: Performed By: #### C BC ####[facility] Lwlmrmgrcs[address] [place], [place] [address]Dr. Slick Davie IG % 0.9 % Critically high 0.0-0.5 [facility] Comment on above: Performed By: #### C BC ####[facility] Dcfsjownsb[address] [place], [place] [address]Dr. Slick Broderick LYMPH # 0.9 103/ul Critically low 1.2-3.8 [facility] Comment on above: Performed By: #### C BC ####[facility] Nyeilegxjc8307 [place] [address]Dr. Slick Broderick Lymphocytes/100 WBC (Bld) 11.5 % Critically low 20.5-60.0 [facility] Comment on above: Performed By: #### C BC ####[facility] Oxmjjuddkd0786 [place] [address]Dr. Slick Davie MANUAL DIFF REQ NO Normal [facility] Comment on above: Performed By: #### C BC ####[facility] Qmmamwlyxn3876 [place] [phone]. Meaganwendie Broderick MCH (RBC) [Entitic mass] 30.9 pg Normal 26.7-34.0 [facility] Comment on above: Performed By: #### C BC ####[facility] Fechuoczar2637 [place] [address]Dr. Meaganwendie Broderick MCHC (RBC) [Mass/Vol] 31.5 g/dL Normal 29.9-35.2 [facility] Comment on above: Performed By: #### C BC ####[facility] Veukogmuih5586 [place] [address]Dr. Slick Broderick MCV (RBC) [Entitic vol] 98.0 fL Normal 81.0-99.0 [facility] Comment on above: Performed By: #### C BC ####[facility] Svdlplqumi[address] [place], [place] [address]Dr. Slick Broderick MONO # 0.6 103/ul Normal 0.3-0.8 [facility] Comment on above: Performed By: #### C BC ####[facility] Nswbqtijuy[address] [place], [place] [address]Dr. Slick Broderick Monocytes/100 WBC (Bld) 8.6 % Normal 1.7-12.0 [facility] Comment on above: Performed By: #### C BC ####[facility] Rnvhcykbdz15[address] [place], [place] [address]Dr. Slick Broderick NEUT # 5.5 103/ul Normal 1.4-6.5 [facility] Comment on above: Performed By: #### C BC ####[facility] Xhqqtffoch90[address] [place], [place] [address]Dr. Slick Broderick Neutrophils/100 WBC (Bld) 74.1 % Normal 43.0-75.0 [facility] Comment on above: Performed By: #### C BC ####[facility] Gbjgzfzphn8879 [place] [address]Dr. Slick Broderick Platelet mean volume (Bld) [Entitic vol] 9.0 fL Critically low 9.5-13.5 [facility] Comment on above: Performed By: #### C BC ####[facility] Rbbpuacdjb6224 [place] [phone]. Slick Broderick PLT 231 103/ul Normal 150-450 [facility] Comment on above: Performed By: #### C BC ####[facility] Xkehlvlwtn6443 [place] [phone]. Slick Broderick RBC 3.01 106/ul Critically low 4.20-5.40 [facility] Comment on above: Performed By: #### C BC ####[facility] Kdtazrbfjs4204 [place] [phone]. Slick Broderick WBC 7.5 103/ul Normal 4.0-11.0 [facility] Comment on above: Performed By: #### C BC ####[facility] Vkvvpwepkt[address] [place], [place] [id number]. Slick Broderick BASO # 0.0 103/ul Normal 0.0-0.1 [facility] Comment on above: Performed By: #### C BC ####[facility] Pijchymslc2566 [place] [phone]. Slick Broderick Basophils/100 WBC (Bld) 0.3 % Normal 0.2-2.0 [facility] Comment on above: Performed By: #### C BC ####[facility] Awegequuhp1213 [place] [phone]. Slick Broderick EO # 0.3 103/ul Normal 0.0-0.7 [facility] Comment on above: Performed By: #### C BC ####[facility] Gxtiezsxgf[address] [place], [place] [address]Dr. Slick Broderick Eosinophils/100 WBC (Bld) 3.8 % Normal 0.9-7.0 [facility] Comment on above: Performed By: #### C BC ####[facility] Iaamdwdddh4039 [place] [phone]. Slick Broderick Erythrocyte distribution width (RBC) [Ratio] 17.4 % Critically high 11.0-15.0 [facility] Comment on above: Performed By: #### C BC ####[facility] Xeypxmawao6342 [place] [address]Dr. Slick Broderick Hematocrit (Bld) [Volume fraction] 22.4 % Critically low 36.0-48.0 [facility] Comment on above: Result Comment: Test Repeated Critical Value Verified Performed By: #### C BC ####[facility] Mixdtmhibv2372 [place] [address]Dr. Meaganwendie Davie Hemoglobin (Bld) [Mass/Vol] 7.1 g/dL Critically low 12.0-16.0 [facility] Comment on above: Performed By: #### C BC ####[facility] Rqulbcxvhv6[address] [place], [place] [address]Dr. Slick Broderick IG # 0.06 10e3/ul Critically high 0.00-0.03 [facility] Comment on above: Performed By: #### C BC ####[facility] Oktgavntou122[address] [place], [place] [address]Dr. Slick Broderick IG % 0.8 % Critically high 0.0-0.5 [facility] Comment on above: Performed By: #### C BC ####[facility] Pmtzwgydee04[address] [place], [place] [address]Dr. Slick Broderick LYMPH # 0.8 103/ul Critically low 1.2-3.8 [facility] Comment on above: Performed By: #### C BC ####[facility] Qqeorpclxn11[address] [place], [place] [address]Dr. Slick Broderick Lymphocytes/100 WBC (Bld) 10.7 % Critically low 20.5-60.0 [facility] Comment on above: Performed By: #### C BC ####[facility] Wxtpphlilx4837[address] [place], [place] [address]Dr. Slick Broderick MANUAL DIFF REQ NO Normal [facility] Comment on above: Performed By: #### C BC ####[facility] Vpmodkatil6115[address] [place], [place] [address]Dr. Slick Broderick MCH (RBC) [Entitic mass] 32.3 pg Normal 26.7-34.0 [facility] Comment on above: Performed By: #### C BC ####[facility] Ogarfmuqiw7132 [place] [phone]. Slick Davie MCHC (RBC) [Mass/Vol] 31.7 g/dL Normal 29.9-35.2 [facility] Comment on above: Performed By: #### C BC ####[facility] Iilxrlxxzt0264 [place] [phone]. Slick Broderick MCV (RBC) [Entitic vol] 101.8 fL Critically high 81.0-99 .0 [facility] Comment on above: Performed By: #### C BC ####[facility] Qoglzzgsdx8155 [place] [address]DrEmma Broderick MONO # 0.8 103/ul Normal 0.3-0.8 [facility] Comment on above: Performed By: #### C BC ####[facility] Fxoyovelof1336 [place] [address]Dr. Slick Broderick Monocytes/100 WBC (Bld) 10.7 % Normal 1.7-12.0 [facility] Comment on above: Performed By: #### C BC ####[facility] Mfdabmyzkx[address] [place], [place] [address]Dr. Slick Broderick NEUT # 5.6 103/ul Normal 1.4-6.5 [facility] Comment on above: Performed By: #### C BC ####[facility] Zeodhpshkl7159 [place] [address]DrEmma Broderick Neutrophils/100 WBC (Bld) 73.7 % Normal 43.0-75.0 [facility] Comment on above: Performed By: #### C BC ####[facility] Mxlzuvgskj[address] [place], [place] [id number] Broderick Platelet mean volume (Bld) [Entitic vol] 9.4 fL Critically low 9.5-13.5 [facility] Comment on above: Performed By: #### C BC ####[facility] Iwiixyrqhj2445 [place] [address]Dr. Slick Broderick PLT 209 103/ul Normal 150-450 [facility] Comment on above: Performed By: #### C BC ####[facility] Ylphwnlpxg3633 [place] [phone]. Slick Broderick RBC 2.20 106/ul Critically low 4.20-5.40 [facility] Comment on above: Performed By: #### C BC ####[facility] Drvpsputpm9889 [place] [phone]. Slick Broderick WBC 7.6 103/ul Normal 4.0-11.0 [facility] Comment on above: Performed By: #### C BC ####[facility] Wafbxcwvdi0740 [place] [phone] Broderick PROF 14(COMP METB)on 022 Albumin [Mass/Vol] 2.1 g/dL Critically low 3.4-5.0 [facility] Comment on above: Performed By: #### C MP ####[facility] Yzmthhdjqi1079 [place] [address]Dr. Slick Broderick Albumin/Globulin [Mass ratio] 0.7 {ratio} Normal [facility] Comment on above: Performed By: #### C MP ####[facility] Qxbexurgrl0700 [place] [address]Dr. Slick Broderick ALP [Catalytic activity/Vol] 83 U/L Normal 46-116 [facility] Comment on above: Performed By: #### C MP ####[facility] Fcylmxifns2776 [place] [address]Dr. Slick Broderick ALT [Catalytic activity/Vol] 12 U/L Critically low 14-59 [facility] Comment on above: Performed By: #### C MP ####[facility] Nlqkaxjwrx2546 [place] [phone] Broderick Anion gap [Moles/Vol] 14.0 mmol/L Normal [facility] Comment on above: Performed By: #### C MP ####[facility] Dokzicwsbb4987 [place] [phone]. Slick Broderick AST [Catalytic activity/Vol] 13 U/L Critically low 15-37 [facility] Comment on above: Performed By: #### C MP ####[facility] Dscdrhoewk8834 [place] [phone]. Slick Broderick Bilirubin [Mass/Vol] 0.3 mg/dL Normal 0.2-1.0 [facility] Comment on above: Performed By: #### C MP ####[facility] Rqxptbahco3348 [place] [phone]. Slick Davie Calcium [Mass/Vol] 7.4 mg/dL Critically low 8.5-10.1 [facility] Comment on above: Performed By: #### C MP ####[facility] Jtaxedxvrd6812[address] [place], [place] [address]Dr. Slick Davie Chloride [Moles/Vol] 105 mmol/L Normal 98-107 [facility] Comment on above: Performed By: #### C MP ####[facility] Bgmwtjuwvo6714[address] [place], [place] [address]Dr. Slick Davie CO2 [Moles/Vol] 23.0 mmol/L Normal 21.0-32.0 [facility] Comment on above: Performed By: #### C MP ####[facility] Tfkmvncpdz[address] [place], [place] [address]Dr. Slick Davie Creatinine [Mass/Vol] 1.80 mg/dL Critically high 0.55-1.02 [facility] Comment on above: Performed By: #### C MP ####[facility] Jnepmjamfr1424[address] [place], [place] [address]Dr. Meaganwendie Davie EGFR-AF DANISH 33 mL/min/1.73m2 Critically low >=60 [facility] Comment on above: Performed By: #### C MP ####[facility] Nsajgpzldm[address] [place], [place] [address]Dr. Slick Broderick EGFR-NON AF DANISH 28 mL/min/1.73m2 Critically low >=60 [facility] Comment on above: Performed By: #### C MP ####[facility] Sytfcagxls[address] [place], [place] [address]Dr. Slick Broderick Globulin (S) [Mass/Vol] 3.2 g/dL Normal T [facility] Comment on above: Performed By: #### C MP ####[facility] Xtunjtaqdz5727 [place] [address]Dr. Slick Broderick Glucose [Mass/Vol] 85 mg/dL Normal 74-106 [facility] Comment on above: Performed By: #### C MP ####[facility] Gxpgozjoul2988 [place] [phone]. Slick Davie Potassium [Moles/Vol] 5.0 mmol/L Normal 3.5-5.1 [facility] Comment on above: Performed By: #### C MP ####[facility] Ycstqxlsqc2470 [place] [address]Dr. Meaganwendie Broderick Protein [Mass/Vol] 5.3 g/dL Critically low 6.4-8.2 [facility] Comment on above: Performed By: #### C MP ####[facility] Fprenvssro307[address] [place], [place] [address]Dr. Meaganwendie Broderick Sodium [Moles/Vol] 137 mmol/L Normal 136-145 [facility] Comment on above: Performed By: #### C MP ####[facility] Eotdzeaktd09[address] [place], [place] [address]Dr. Slick Davie Urea nitrogen [Mass/Vol] 30.0 mg/dL Critically high 7.0-18.0 [facility] Comment on above: Performed By: #### C MP ####[facility] Urcbfkevhh1066[address] [place], [place] [address]Dr. Slick Broderick Urea nitrogen/Creatinine [Mass ratio] 16.7 mg/mg Normal [facility] Comment on above: Performed By: #### C MP ####[facility] Akopvoohgr07[address] [place], [place] [address]Dr. Slick Broderick ABO RH RETYPEon 12-12-2021 ABO and Rh group Nom (Bld) DONE Normal [facility] Comment on above: Performed By: #### R ETYPE ####[facility] Revuoqvbym1054[address] [place], [place] [address]Dr. Slick Broderick BNPon 12-12-2021 Natriuretic peptide B (Bld) [Mass/Vol] 952.0 pg/mL Critically high <=900.0 [facility] Comment on above: Performed By: #### B HEARING AID REPAIRER, CRP, CMP ####[facility] Jmlvamhcqc1065 [place] [address]Dr. Slick Davie CBC AUTO DIFFon 12-12-2021 BASO # 0.0 103/ul Normal 0.0-0.1 [facility] Comment on above: Performed By: #### C BC ####[facility] Wsxitnawno5[address] [place], [place] [address]Dr. Slick Broderick Basophils/100 WBC (Bld) 0.2 % Normal 0.2-2.0 [facility] Comment on above: Performed By: #### C BC ####[facility] Nflcpmqlvf535[address] [place], [place] [address]Dr. Slick Broderick EO # 0.2 103/ul Normal 0.0-0.7 [facility] Comment on above: Performed By: #### C BC ####[facility] Ghygczjxfo4964[address] [place], [place] [address]Dr. Slick Broderick Eosinophils/100 WBC (Bld) 2.6 % Normal 0.9-7.0 [facility] Comment on above: Performed By: #### C BC ####[facility] Wlfegvpvjv[address] [place], [place] [address]Dr. Slick Broderick Erythrocyte distribution width (RBC) [Ratio] 17.2 % Critically high 11.0-15.0 [facility] Comment on above: Performed By: #### C BC ####[facility] Kmlsdqvumd40[address] [place], [place] [address]Dr. Slick Broderick Hematocrit (Bld) [Volume fraction] 24.0 % Critically low 36.0-48.0 [facility] Comment on above: Performed By: #### C BC ####[facility] Kheupmwoan2002[address] [place], [place] [address]Dr. Slick Broderick Hemoglobin (Bld) [Mass/Vol] 7.7 g/dL Critically low 12.0-16.0 [facility] Comment on above: Performed By: #### C BC ####[facility] Iujbocygwp8893 [place] [phone]. Slick Broderick IG # 0.05 10e3/ul Critically high 0.00-0.03 [facility] Comment on above: Performed By: #### C BC ####[facility] Aaasxesfqz4962 [place] [phone]. Meaganwendie Broderick IG % 0.5 % Normal 0.0-0.5 [facility] Comment on above: Performed By: #### C BC ####[facility] Lxccecxrao3849 [place] [address]Dr. Slick Broderick LYMPH # 0.7 103/ul Critically low 1.2-3.8 [facility] Comment on above: Performed By: #### C BC ####[facility] Dmrsgcprbv9719 [place] [address]Dr. Slick Broderick Lymphocytes/100 WBC (Bld) 7.7 % Critically low 20.5-60.0 [facility] Comment on above: Performed By: #### C BC ####[facility] Sqgwjkrbrj4646 [place] [address]Dr. Slick Broderick MANUAL DIFF REQ NO Normal [facility] Comment on above: Performed By: #### C BC ####[facility] Pgwkjylosg4183 [place] [address]Dr. Slick Broderick MCH (RBC) [Entitic mass] 32.6 pg Normal 26.7-34.0 [facility] Comment on above: Performed By: #### C BC ####[facility] Iqdnwhzoxp8501 [place] [phone]. Slick Broderick MCHC (RBC) [Mass/Vol] 32.1 g/dL Normal 29.9-35.2 [facility] Comment on above: Performed By: #### C BC ####[facility] Kyjmdomsda7755 [place] [address]Dr. Slick Davie MCV (RBC) [Entitic vol] 101.7 fL Critically high 81.0-99 .0 [facility] Comment on above: Performed By: #### C BC ####[facility] Cmjixieufj6820 [place] [phone]. Slick Broderick MONO # 0.8 103/ul Normal 0.3-0.8 [facility] Comment on above: Performed By: #### C BC ####[facility] Eopjmhehqy5468 [place] [phone]. Slick Broderick Monocytes/100 WBC (Bld) 8.5 % Normal 1.7-12.0 [facility] Comment on above: Performed By: #### C BC ####[facility] Vhcfvwxayo3737 [place] [phone]. Slick Broderick NEUT # 7.3 103/ul Critically high 1.4-6.5 [facility] Comment on above: Performed By: #### C BC ####[facility] Lcyiihlxfs1919 [place] [address]Dr. Slick Broderick Neutrophils/100 WBC (Bld) 80.5 % Critically high 43.0-75.0 [facility] Comment on above: Performed By: #### C BC ####[facility] Khadanoopz1797 [place] [address]Dr. Slick Broderick Platelet mean volume (Bld) [Entitic vol] 8.9 fL Critically low 9.5-13.5 [facility] Comment on above: Performed By: #### C BC ####[facility] Qejpjrlzck3526 [place] [address]Dr. Slick Broderick PLT 204 103/ul Normal 150-450 [facility] Comment on above: Performed By: #### C BC ####[facility] Kglddjjkhw9943 [place] [id number]. Slick Broderick RBC 2.36 106/ul Critically low 4.20-5.40 [facility] Comment on above: Performed By: #### C BC ####[facility] Moikjgbkgm1933 [place] [phone]. Slick Broderick WBC 9.1 103/ul Normal 4.0-11.0 [facility] Comment on above: Performed By: #### C BC ####[facility] Grvcthlysq0437 [place] [phone]. Slick Broderick CBC W MANUAL DIFFon 12-13-19 22 ATYPICAL LYMPH # Normal [facility] Comment on above: Performed By: #### C AIDEN ####[facility] Cubsoduyno9980 [place] [id number]. Slick Broderick ATYPICAL LYMPH % Normal [facility] Comment on above: Performed By: #### C AIDEN ####[facility] Kfnzshoivp1945 [place] [address]Dr. Slick Broderick BAND # Normal 0.0-0.3 [facility] Comment on above: Performed By: #### C AIDEN ####[facility] Kdkascozjn18[address] [place], [place] [address]Dr. Slick Broderick BAND % Normal 0-5 [facility] Comment on above: Performed By: #### C AIDEN ####[facility] Ufhjwtnygu7[address] [place], [place] [address]Dr. Slick Broderick BASOM # 0.00 103/ul Normal 0.00-0.10 [facility] Comment on above: Performed By: #### C AIDEN ####[facility] Obgouvyaxe12[address] [place], [place] [address]Dr. Slick Broderick BASOM % 0.0 % Critically low 0.2-2.0 [facility] Comment on above: Performed By: #### C AIDEN ####[facility] Dkhbigcjng9909 [place] [address]Dr. Slick Broderick BLAST # Normal [facility] Comment on above: Performed By: #### C AIDEN ####[facility] Uakponoikb2718 [place] [address]Dr. Slick Broderick BLAST % Normal [facility] Comment on above: Performed By: #### C AIDEN ####[facility] Ndocgufalw1936 [place] [address]Dr. Slick Broderick CORRECTED WBC Normal 4.0-11.0 [facility] Comment on above: Performed By: #### C AIDEN ####[facility] Lmsitkxtpf5945 [place], [place] [address]Yl. Slick Broderick EOS # 0.35 103/ul Normal 0.00-0.70 [facility] Comment on above: Performed By: #### C AIDEN ####[facility] Cuqencbshz1306 [place] [phone]. Slick Broderick EOS% 3.0 % Normal 0.9-7.0 [facility] Comment on above: Performed By: #### C AIDEN ####[facility] Eksrbfhpvs9653 [place] [phone]. Slick Broderick HCT 21.4 % Critically low 36.0-48.0 [facility] Comment on above: Result Comment: TEST REPEATED CRITICAL VALUE VERIFIED Performed By: #### C AIDEN ####[facility] Lipkkpxgss3364 [place] [phone]. Slick Broderick HGB 6.6 g/dl Critically low 12.0-16.0 [facility] Comment on above: Result Comment: TEST REPEATED CRITICAL VALUE VERIFIED Performed By: #### C AIDEN ####[facility] Pduxsjbjug4738 [place] [id number]. Slick Broderick LYMPHM # 0.59 103/ul Critically low 1.20-3.80 [facility] Comment on above: Performed By: #### C AIDEN ####[facility] Kkseesbpcn2467 [place] [id number]. Slick Broderick LYMPHM% 5.0 % Critically low 20.5-60.0 [facility] Comment on above: Performed By: #### C AIDEN ####[facility] Fmgtahsluj1742 [place] [id number]. Slick Broderick MCH 33.2 pg Normal 26.7-34.0 [facility] Comment on above: Performed By: #### C AIDEN ####[facility] Icaisfzhid1371 [place] [id number]. Slick Broderick MCHC 30.8 g/dl Normal 29.9-35.2 [facility] Comment on above: Performed By: #### C AIDEN ####[facility] Iztoihfiao6244 [place] [id number]. Slick Broderick MCV 107.5 fL Critically high 81.0-99.0 [facility] Comment on above: Result Comment: RBCS APPEAR MACROCYTIC ON PERIPHERAL SMEAR Performed By: #### C AIDEN ####[facility] Xwelcghxls4730 [place], [place] [address]Bw. Slick Broderick METAMYELOCYTE # Normal [facility] Comment on above: Performed By: #### C AIDEN ####[facility] Hqgohixcje9305 [place] [id number]. Slick Broderick METAMYELOCYTE % Normal [facility] Comment on above: Performed By: #### C AIDEN ####[facility] Nqrvaicehn3457 [place] [address]Dr. Slick Broderick MONOM# 0.71 103/ul Normal 0.30-0.80 [facility] Comment on above: Performed By: #### C AIDEN ####[facility] Beiovofaoy1036 [place] [address]Dr. Slick Broderick MONOM% 6.0 % Normal 1.7-12.0 [facility] Comment on above: Performed By: #### C AIDEN ####[facility] [address] [place] [address]Dr. Slick Broderick MPV 9.2 fL Critically low 9.5-13.5 The [facility] Comment on above: Performed By: #### C AIDEN ####[facility] Wwktyzsrvl[address] [place] [address]Dr. Slick Broderick MYELOCYTE # Normal [facility] Comment on above: Performed By: #### C AIDEN ####[facility] Sw[address]xnueno[address] [place] [id number]. Slick Broderick MYELOCYTE % Normal [facility] Comment on above: Performed By: #### C AIDEN ####[facility] Ovzpkbuedo[address] [place] [address]Dr. Slick Broderick NRBC Normal [facility] Comment on above: Performed By: #### C AIDEN ####[facility] Cihijquzkg6595 [place], [place] [address]Re. Slick Broderick PLT 232 103/ul Normal 150-450 [facility] Comment on above: Performed By: #### C AIDEN ####[facility] Aivtjsumkv6927 [place], [place] [address]Wg. Slick Broderick RBC 1.99 106/ul Critically low 4.20-5.40 The [facility] Comment on above: Performed By: #### C AIDEN ####[facility] Ukqdrcyezy4483 [place], [place] [address]Lp. Slick Broderick RDW 15.6 % Critically high 11.0-15.0 The [facility] Comment on above: Performed By: #### C AIDEN ####[facility] Loivtuyagi1010 [place], [place] [address]Hr. Slick Broderick SEG # 10.15 103/ul Critically high 1.40-6.50 The [facility] Comment on above: Performed By: #### C AIDEN ####[facility] Itrjmseajw3809 [place], [place] [address]Bz. Slick Broderick SEG % 86.0 % Critically high 43.0-75.0 The [facility] Comment on above: Performed By: #### C AIDEN ####[facility] Ocezywdxje0763 [place], [place] [address]Ab. Slick Broderick WBC 11.8 103/ul Critically high 4.0-11.[address] [facility] Comment on above: Performed By: #### C AIDEN ####[facility] Klhfrbdtok4622 [place], [place] [address]Fc. Slick Broderick CRPon 12-12-2021 CRP 10.1 mg/dL Critically high <=1.0 The [facility] Comment on above: Performed By: #### B HEARING AID REPAIRER, CRP, CMP ####[facility] Ktw[address]oyhzuz1917 [place], [place] [address]Nq. Slick Broderick CULTURE BLOODon 12-12-2021 Microscopic examination of blood, culture Culture Observations: NO GROWTH AT 5 DAYS. Normal [facility] Comment on above: Performed By: #### B LDCX2 ####[facility] Dekwhfhfmu7506 [place], [place] [address]Lc. Slick Broderick Microscopic examination of blood, culture Culture Observations: NO GROWTH AT 5 DAYS. Normal [facility] Comment on above: Performed By: #### B LDCX1 ####[facility] Ucjtpxusaz8587 [place], [place] [address]Ci. Slick Broderick CULTURE URINEon 12-12-2021 CULTURE URINE Culture Observations: NO GROWTH. Normal [facility] Comment on above: Performed By: #### U RCX ####[facility] Ujcyezblrf3470 [place], [place] [address]Di. Slick Broderick Covid-19 PCR (CVDTBH)on SARS-CoV-2 (COVID-19) RNA DONNIE+probe Ql (Unsp spec) Not detected Normal NOT DETECTED [facility] Comment on above: Result Comment: [...] for this test is supported by the [employer] of [employer] and Human Service's declaration that [...] be used). Performed By: #### C VDTBH ####[facility] [address]eyyplksu[address] [place] [phone]. Slick Broderick ER URINE PROFILEon 2 Bilirubin Ql (U) Negative Normal NEGATIVE The [facility] Comment on above: Performed By: #### U MICRO, ERUR ####[facility] Gsbpkjfoai3692 [place], [place] [address]Vr. Slick Broderick Clarity (U) CLOUDY Abnormal CLEAR [facility] Comment on above: Performed By: #### U MICRO, ERUR ####[facility] Ql[address]owlg[address] [place] [address]Dr. Slick Broderick Color (U) LT. YELLOW Normal YELLOW [facility] Comment on above: Performed By: #### U MICRO, ERUR ####[facility] Fwqprpmcsw65[address] [place] [address]Dr. Slick Broderick ERUAHD A micrscopic examination will be performed if indicated. Normal [facility] Comment on above: Performed By: #### U MICRO, ERUR ####[facility] Cdqivst[address] [place], [place] [address]Dr. Slick Broderick Glucose Ql (U) Negative Normal NEGATIVE The [facility] Comment on above: Performed By: #### U MICRO, ERUR ####[facility] Lasyqnmmmf[address] [place], [place] [address]Dr. Slick Broderick Hemoglobin Ql (U) Negative Normal NEGATIVE The [facility] Comment on above: Performed By: #### U MICRO, ERUR ####[facility] Ftyymjjeyu[address] [place], [place] [address]Dr. Slick Broderick Ketones Ql (U) Negative Normal NEGATIVE The [facility] Comment on above: Performed By: #### U MICRO, ERUR ####[facility] Qpaqcdecjq[address] [place], [place] [address]Dr. Slick Broderick LEUKOCYTES MODERATE Abnormal NEGATIVE [facility] Comment on above: Performed By: #### U MICRO, ERUR ####[facility] Yq[address]fs[address] [place], [place] [address]Dr. Slick Broderick Nitrite Ql (U) Negative Normal NEGATIVE The [facility] Comment on above: Performed By: #### U MICRO, ERUR ####[facility] Otzyzwwxxo[address] [place], [place] [address]Dr. Slick Broderick pH (U) 6.0 [pH] Normal 5-9 [facility] Comment on above: Performed By: #### U MICRO, ERUR ####[facility] Brozckwn[address] [place], [place] [address]Dr. Slick Broderick SPEC GRAVITY 1.010 Normal 1.005-<=1.0 25 [facility] Comment on above: Performed By: #### U MICRO, ERUR ####[facility] T[address]qhwmeln[address] [place] [address]Dr. Slick Broderick UA PROTEIN Negative Normal NEGATIVE/ TRACE [facility] Comment on above: Performed By: #### U MICRO, ERUR ####[facility] Ulqlrzaqff85[address] [place] [address]Dr. Slick Broderick UR MICRO IND INDICATED Normal [facility] Comment on above: Performed By: #### U MICRO, ERUR ####[facility] Kvazuatmev[address] [place] [address]Dr. Meaganwendie Broderick Urobilinogen Qn (U) 0.2 {Hiren'U}/dL Normal 0.2 - 1. 0 [facility] Comment on above: Performed By: #### U MICRO, ERUR ####[facility] C[address]iceyjrpf[address] [place] [address]Dr. Meaganwendie Broderick IRON AND TIBCon 12-12-2021 % SATURATION 7.0 % Normal [facility] Comment on above: Performed By: #### B 12FOLisa FETIBC ####[facility] [address]svvgjbgbn7[address] [place] [address]Dr. Slick Broderick Iron [Mass/Vol] 18.0 ug/dL Critically low 50.0-170.0 The [facility] Comment on above: Performed By: #### Hoa 12FOL FETIBC ####[facility] [address]hwl[address] [place] [address]Dr. Meaganwendie Broderick TIBC DIRECT 257.0 ug/dL Normal 250.0-450.0 The [facility] Comment on above: Performed By: #### B 12FOLisa FETIBC ####[facility] Soufcqojpj22[address] [place] [address]Dr. Slick Broderick LACTATE/LACTIC ACIDon 2021 Lactate [Moles/Vol] 0.7 mmol/L Normal 0.4-1.9 The [facility] Comment on above: Performed By: #### L ACT ####[facility] [address]adlabzzp[address] [place] [address]Dr. Slick Broderick OCC BLD IMMUNO SCREENon OCCULT BLOOD Negative Normal NEGATIVE [facility] Comment on above: Performed By: #### O BSCRN ####[facility] Qmfuzbpvol9578 [place] [address]Dr. Slick Broderick PROF 14(COMP METB)on 022 Albumin [Mass/Vol] 2.6 g/dL Critically low 3.4-5.0 [facility] Comment on above: Performed By: #### B HEARING AID REPAIRER, CRP, CMP ####[facility] V[address]oyzljbn[address] [place] [address]Dr. Slick Broderick Albumin/Globulin [Mass ratio] 0.7 {ratio} Normal [facility] Comment on above: Performed By: #### B HEARING AID REPAIRER, CRP, CMP ####[facility] Kexvcioten[address] [place], [place] [address]Dr. Slick Broderick ALP [Catalytic activity/Vol] 105 U/L Normal 46-116 [facility] Comment on above: Performed By: #### B HEARING AID REPAIRER, CRP, CMP ####[facility] Rrfkoceiwt[address] [place], [place] [address]Dr. Slick Broderick ALT [Catalytic activity/Vol] 16 U/L Normal 14-59 [facility] Comment on above: Performed By: #### B HEARING AID REPAIRER, CRP, CMP ####[facility] Ssj[address]aevkj[address] [place] [address]Dr. Slick Broderick Anion gap [Moles/Vol] 11.7 mmol/L Normal Th [facility] Comment on above: Performed By: #### B HEARING AID REPAIRER, CRP, CMP ####[facility] Y[address]okyjvpeg[address] [place] [address]Dr. Slick Broderick AST [Catalytic activity/Vol] 11 U/L Critically low 15-37 [facility] Comment on above: Performed By: #### B HEARING AID REPAIRER, CRP, CMP ####[facility] [address]ovvtfsnp[address] [place] [address]Dr. Slick Broderick Bilirubin [Mass/Vol] 0.3 mg/dL Normal 0.2-1.0 [facility] Comment on above: Performed By: #### B HEARING AID REPAIRER, CRP, CMP ####[facility] Cuojwgmeyb[address] [place], [place] [address]Dr. Slick Broderick Calcium [Mass/Vol] 7.8 mg/dL Critically low 8.5-10.1 Th [facility] Comment on above: Performed By: #### B HEARING AID REPAIRER, CRP, CMP ####[facility] Uadghpungj[address] [place], [place] [address]Dr. Slick Broderick Chloride [Moles/Vol] 105 mmol/L Normal 98-107 [facility] Comment on above: Performed By: #### B HEARING AID REPAIRER, CRP, CMP ####[facility] Ubqmxykbkx[address] [place], [place] [address]Dr. Slick Broderick CO2 [Moles/Vol] 24.2 mmol/L Normal 21.0-32.0 [facility] Comment on above: Performed By: #### B HEARING AID REPAIRER, CRP, CMP ####[facility] Gxujqrryli[address] [place], [place] [address]Dr. Slick Broderick Creatinine [Mass/Vol] 1.96 mg/dL Critically high 0.55-1.02 [facility] Comment on above: Performed By: #### B HEARING AID REPAIRER, CRP, CMP ####[facility] Cvuepuphzm[address] [place], [place] [address]Dr. Slick Broderick EGFR-AF DANISH 30 mL/min/1.73m2 Critically low >=60 [facility] Comment on above: Performed By: #### B HEARING AID REPAIRER, CRP, CMP ####[facility] Emsmvsnwna[address] [place], [place] [address]Dr. Slick Broderick EGFR-NON AF DANISH 25 mL/min/1.73m2 Critically low >=60 [facility] Comment on above: Performed By: #### B HEARING AID REPAIRER, CRP, CMP ####[facility] Vfyrhakwzz[address] [place], [place] [address]Dr. Slick Broderick Globulin (S) [Mass/Vol] 3.8 g/dL Normal T [facility] Comment on above: Performed By: #### B HEARING AID REPAIRER, CRP, CMP ####[facility] Qmyxhkygxw3947 [place] [address]Dr. Slick Broderick Glucose [Mass/Vol] 91 mg/dL Normal 74-106 The [facility] Comment on above: Performed By: #### B HEARING AID REPAIRER, CRP, CMP ####[facility] Bbvexuwyjf[address] [place] [address]Dr. Slick Broderick Potassium [Moles/Vol] 4.9 mmol/L Normal 3.5-5.1 [facility] Comment on above: Performed By: #### B HEARING AID REPAIRER, CRP, CMP ####[facility] Kkaictjazc[address] [place], [place] [address]Dr. Slick Broderick Protein [Mass/Vol] 6.4 g/dL Normal 6.4-8.2 [facility] Comment on above: Performed By: #### B HEARING AID REPAIRER, CRP, CMP ####[facility] Ehpkygqcwu[address] [place], [place] [address]Dr. Slick Broderick Sodium [Moles/Vol] 136 mmol/L Normal 136-145 [facility] Comment on above: Performed By: #### B HEARING AID REPAIRER, CRP, CMP ####[facility] Luvbddckzl[address] [place], [place] [address]Dr. Slick Broderick Urea nitrogen [Mass/Vol] 32.0 mg/dL Critically high 7.0-18.0 [facility] Comment on above: Performed By: #### B HEARING AID REPAIRER, CRP, CMP ####[facility] Diawynzjmy[address] [place], [place] [address]Dr. Slick Broderick Urea nitrogen/Creatinine [Mass ratio] 16.3 mg/mg Normal [facility] Comment on above: Performed By: #### B HEARING AID REPAIRER, CRP, CMP ####[facility] Qmuvmvbnmb9[address] [place], [place] [address]Dr. Slick Broderick TYPE AND SCREENon 12-12-2021 TYPE AND SCREEN Negative Normal The [facility] Comment on above: Performed By: #### T NS ####[facility] Cbktlospce[address] [place], [place] [address]Dr. Meaganwendie Davie URINE MICROSCOPIC ONLYon BACTERIA SMALL Abnormal NONE SEEN [facility] Comment on above: Performed By: #### U MICRO, ERUR ####[facility] Wgnldpuaxz[address] [place] [address]Dr. Slick Broderick Bacteria identified Cx Nom (U) INDICATED Normal [facility] Comment on above: Performed By: #### U MICRO, ERUR ####[facility] Tytztjldwk[address] [place] [address]Dr. Slick Broderick CAST NONE SEEN Normal NONE SEEN [facility] Comment on above: Performed By: #### U MICRO, ERUR ####[facility] Uzewopmmud[address] [place], [place] [address]Dr. Slick Broderick Crystals LM Nom (Urine sed) NONE SEEN Normal NONE SEEN [facility] Comment on above: Performed By: #### U MICRO, ERUR ####[facility] Drcxlweztp[address] [place], [place] [address]Dr. Slick Broderick Epithelial cells LM Ql (Urine sed) MANY Abnormal NONE SEEN /RARE [facility] Comment on above: Performed By: #### U MICRO, ERUR ####[facility] Swghicwnvm[address] [place], [place] [address]Dr. Slick Broderick MUCOUS TRACE Abnormal NONE SEEN [facility] Comment on above: Performed By: #### U MICRO, ERUR ####[facility] Higpgikopx[address] [place], [place] [address]Dr. Slick Broderick RBC 0-2 Normal 0-2 [facility] Comment on above: Performed By: #### U MICRO, ERUR ####[facility] [address]lv[address]jr[address] [place], [place] [address]Dr. Slick Broderick WBC 2-5 Abnormal NONE SEEN [facility] Comment on above: Performed By: #### U MICRO, ERUR ####[facility] Rtjgdcevvj[address] [place], [place] [address]Dr. Slick Broderick VIT B12 AND FOLATEon 022 Cobalamin (Vitamin B12) [Mass/Vol] 753.0 pg/mL Normal 193.0-986.0 [facility] Comment on above: Performed By: #### B 12FOL, FETIBC ####[facility] Mdmxwmnalm06[address] [place] [phone]. Slick Broderick FOLATE 20.20 ng/mL Normal 8.60-58.90 [facility] Comment on above: Performed By: #### B 12FOL, FETIBC ####[facility] Lwdkzgonhs74[address] [place] [id number]. Slick Broderick XR CHEST 1 Von 12-12-2021 XR CHEST 1 V Normal [facility] XR KNEE LT 3Von 12-12-2021 XR KNEE LT 3V Normal The [facility] PROF CHEM 8 (BAS METB)on Anion gap [Moles/Vol] 11.4 mmol/L Normal [facility] Comment on above: Performed By: #### B MP ####[facility] [address]jyshtlifr54[address] [place] [address]Dr. Slick Broderick Calcium [Mass/Vol] 7.4 mg/dL Critically low 8.5-10.1 [facility] Comment on above: Performed By: #### B MP ####[facility] Xqiltoitcc6[address] [place] [address]Dr. Slick Broderick Chloride [Moles/Vol] 109 mmol/L Critically high 98-107 [facility] Comment on above: Performed By: #### B MP ####[facility] Xdunemglop1567 [place] [id number]. Slick Broderick CO2 [Moles/Vol] 26.6 mmol/L Normal 21.0-32.0 [facility] Comment on above: Performed By: #### B MP ####[facility] Zmsqevyqsu[address] [place] [address]Dr. Slick Broderick Creatinine [Mass/Vol] 1.16 mg/dL Critically high 0.55-1.02 [facility] Comment on above: Performed By: #### B MP ####[facility] Bagwqkmwwi[address] [place] [address]Dr. Slick Broderick EGFR-AF DANISH 56 mL/min/1.73m2 Critically low >=60 [facility] Comment on above: Performed By: #### B MP ####[facility] Yomazowfgy350[address] [place] [address]Dr. Meaganwendie Davie EGFR-NON AF DANISH 46 mL/min/1.73m2 Critically low >=60 [facility] Comment on above: Performed By: #### B MP ####[facility] Vrdwwijvkz29[address] [place] [phone]. Slick Broderick Glucose [Mass/Vol] 128 mg/dL Critically high 74-106 [facility] Comment on above: Performed By: #### B MP ####[facility] Duowrshvvq6[address] [place] [address]Dr. Slick Broderick Potassium [Moles/Vol] 5.0 mmol/L Normal 3.5-5.1 [facility] Comment on above: Performed By: #### B MP ####[facility] Cyppqkcgbp04[address] [place] [address]Dr. Slick Broderick Sodium [Moles/Vol] 142 mmol/L Normal 136-145 [facility] Comment on above: Performed By: #### B MP ####[facility] Zdyhmzlwqi1487 [place] [id number]. Slick Broderick Urea nitrogen [Mass/Vol] 22.0 mg/dL Critically high 7.0-18.0 [facility] Comment on above: Performed By: #### B MP ####[facility] [address]fskfdqldw7[address] [place] [address]Dr. Slick Broderick Urea nitrogen/Creatinine [Mass ratio] 19.0 mg/mg Normal [facility] Comment on above: Performed By: #### B MP ####[facility] Tyxxtcklbh24[address] [place] [address]Dr. Slick Broderick XR TIB_FIB LT 2Von 2 XR TIB_FIB LT 2V Normal [facility] CT CSPINE WO CONon 2 CT CSPINE WO CON Normal [facility] CT HEAD WO CONon 11-29-2021 CT HEAD WO CON Normal The [facility] XR lumbar spine AP/LAT/FLX/E XTon 10-06-2021 XR lumbar spine AP/LAT/FLX/EXT [facility] [employer] Other XR lumbar spine AP/LAT/FLX/EXT [facility] [employer] Other XR lumbar spine AP/LAT/FLX/EXT [address] [place] [address] [employer] Other XR lumbar spine AP/LAT/FLX/[place] [address] [employer] Other XR lumbar spine AP/LAT/FLX/EXT XRay Report [employer] Other XR lumbar spine AP/LAT/FLX/EXT Signed [employer] Other XR lumbar spine AP/LAT/FLX/EXT Patient: Linda Nascimento MR#: [id number] [employer] Other XR lumbar spine AP/LAT/FLX/EXT 840 [employer] Other XR lumbar spine AP/LAT/FLX/EXT : 1950 Acct:[id number] [employer] Other XR lumbar spine AP/LAT/FLX/EXT Age/Sex: 71 / F ADM Date: 10/06/21 [employer] Other XR lumbar spine AP/LAT/FLX/EXT Loc: [facility] Room: Type: [facility] CLI [employer] Other XR lumbar spine AP/LAT/FLX/EXT Attending Dr: Gunnar Fernandez DO [employer] Other XR lumbar spine AP/LAT/FLX/EXT Ordering Provider: Gunnar Fernandez DO [employer] Other XR lumbar spine AP/LAT/FLX/EXT Date of Service: 10/06/21 [employer] Other XR lumbar spine AP/LAT/FLX/EXT XR/XR lumbar spine AP/LAT/FLX/EXT: Lumbar pain [employer] Other XR lumbar spine AP/LAT/FLX/EXT Copies to: Gunnar Fernandez, [employer] Other XR lumbar spine AP/LAT/FLX/EXT Lumbar spine 10/06/2021. [employer] Other XR lumbar spine AP/LAT/FLX/EXT CLINICAL DATA: Low back pain with radiation to the buttocks. [employer] Other XR lumbar spine AP/LAT/FLX/EXT FINDINGS: 4 standing views of the lumbar spine were obtained including lateral views in the [employer] Other XR lumbar spine AP/LAT/FLX/EXT neutral, flexion, and extension positions. [employer] Other XR lumbar spine AP/LAT/FLX/EXT There is grade 2 spondylolisthesis measuring 17 mm at L4-L5. There is grade 1 spondylolisthesis [employer] Other XR lumbar spine AP/LAT/FLX/EXT measuring 8 mm at the lumbosacral junction. There is mild anterior malalignment of L3 on L4. Overall [employer] Other XR lumbar spine AP/LAT/FLX/EXT vertebral alignment does not significantly change with flexion or extension. There are disc space [employer] Other XR lumbar spine AP/LAT/FLX/EXT narrowing and facet arthritis in the lower lumbar spine. [employer] Other XR lumbar spine AP/LAT/FLX/EXT XR/XR lumbar spine AP/LAT/FLX/EXT [employer] Other XR lumbar spine AP/LAT/FLX/EXT IMPRESSION: Multilevel spondylolisthesis. No instability with flexion or extension. Disc space [employer] Other XR lumbar spine AP/LAT/FLX/EXT Impression dictated by: Marin Haines Jr., M.D.10/06/2021 4:07 PM [employer] Other XR lumbar spine AP/LAT/FLX/EXT Dictation Location: [facility]05 [employer] Other XR lumbar spine AP/LAT/FLX/EXT Transcribed By: ROLF 10/06/21 1607 [employer] Other XR lumbar spine AP/LAT/FLX/EXT Dictated By: Marin Haines Jr, MD 10/06/21 1600 [employer] Other XR lumbar spine AP/LAT/FLX/EXT Signed By: [employer] Other XR lumbar spine AP/LAT/FLX/EXT 10/06/21 1609 [employer] Other BASIC METABOLIC PANELon 11- Calcium [Mass/Vol] 8.2 mg/dL Low 8.6-10.3 [facility] Comment on above: Order Comment: No: D o not add to previous draw Performed By: #### 0 0071 ####[facility] [place] [address], [facility] Chloride [Moles/Vol] 106 mmol/L Normal 98-107 [facility] Comment on above: Order Comment: No: D o not add to previous draw Performed By: #### 0 0071 ####[facility] [facility] [address], [place] CO2 [Moles/Vol] 23 mmol/L Normal 21-31 [facility] Comment on above: Order Comment: No: D o not add to previous draw Performed By: #### 0 0071 ####[facility] [place] [address], [facility] Creatinine [Mass/Vol] 0.98 mg/dL Normal 0.60-1.20 [facility] Comment on above: Order Comment: No: D o not add to previous draw Performed By: #### 0 0071 ####[facility] [facility] [place] [address], [facility] eGFR- non- 56 ml/min/1.73sq m Abnormal >60 [facility] Comment on above: Order Comment: No: D o not add to previous draw Result Comment: Calc ulation may not be valid for patients over 70 years Performed By: #### 0 0071 ####[facility] [place] [address], [facility] GFR/1.73 sq M.predicted among blacks MDRD (S/P/Bld) [Vol rate/Area] mL/min/{1.73_m2} Normal >60 [facility] Comment on above: Order Comment: No: D o not add to previous draw Result Comment: Calc ulation may not be valid for patients over 70 years Performed By: #### 0 0071 ####[place] [address] [facility] [place] [place] [address], [facility] Glucose [Mass/Vol] 104 mg/dL High 70-100 [facility] Comment on above: Order Comment: No: D o not add to previous draw Performed By: #### 0 0071 ####[place] [address] [facility] [place] [place] [address], [facility] Potassium [Moles/Vol] 4.5 mmol/L Normal 3.5-5.1 [facility] Comment on above: Order Comment: No: D o not add to previous draw Performed By: #### 0 0071 ####[facility] [facility] [place] [place] [address], [facility] Sodium [Moles/Vol] 136 mmol/L Normal 136-145 [facility] Comment on above: Order Comment: No: D o not add to previous draw Performed By: #### 0 0071 ####[facility] [facility] [place] [address], [facility] Urea nitrogen [Mass/Vol] 14 mg/dL Normal 7-25 [facility] Comment on above: Order Comment: No: D o not add to previous draw Performed By: #### 0 0071 ####[facility] [facility] HEMATOCRITon 04-28-2021 Hematocrit (Bld) [Volume fraction] 27.6 % Low 36.0-45.0 [facility] Comment on above: Order Comment: No: D o not add to previous draw Performed By: #### 5 7307, 39294 #### [facility] [address] [facility]. [address] HEMOGLOBINon 04-28-2021 Hemoglobin (Bld) [Mass/Vol] 8.6 g/dL Low 12.0-15.0 [facility] Comment on above: Order Comment: No: D o not add to previous draw Performed By: #### 5 7307, 36812 #### [facility] [address] CHEST AND LATERALon 04-27-20 CHEST AND LATERAL [facility] Department of Radiology [address] [place] [address] Patient Name: LINDA NASCIMENTO : 1950 Sex: F Age: Race: White Pt. Location: [id number] Patient Status: I Ordered Date: 04/27/2021 7:00:00 [...] leads. Electronically signed: Dwight Davila. Transcribed by: [email or web address], User Resident: Electronically Signed by: DWIGHT DAVILA @ 04/27/2021 10:35 AM Normal [facility] Comment on above: Order Comment: No: D o not add to previous draw BASIC METABOLIC PANELon 11-1 Calcium [Mass/Vol] 8.7 mg/dL Normal 8.6-10.3 [facility] Comment on above: Order Comment: No: D o not add to previous draw Performed By: #### 0 0071 ####[facility] [facility] [place] [address], [facility] Chloride [Moles/Vol] 103 mmol/L Normal 98-107 [facility] Comment on above: Order Comment: No: D o not add to previous draw Performed By: #### 0 0071 ####[facility] [place] [address], [place] CO2 [Moles/Vol] 24 mmol/L Normal 21-31 [facility] Comment on above: Order Comment: No: D o not add to previous draw Performed By: #### 0 0071 ####[facility] [place] [address], [facility] Creatinine [Mass/Vol] 1.05 mg/dL Normal 0.60-1.20 [facility] Comment on above: Order Comment: No: D o not add to previous draw Performed By: #### 0 0071 ####[facility] [place] [address], [facility] eGFR- non- 51 ml/min/1.73sq m Abnormal >60 [facility] Comment on above: Order Comment: No: D o not add to previous draw Result Comment: Calc ulation may not be valid for patients over 70 years Performed By: #### 0 0071 ####[facility] [place] [address], [facility] GFR/1.73 sq M.predicted among blacks MDRD (S/P/Bld) [Vol rate/Area] mL/min/{1.73_m2} Normal >60 [facility] Comment on above: Order Comment: No: D o not add to previous draw Result Comment: Calc ulation may not be valid for patients over 70 years Performed By: #### 0 0071 ####[facility] [facility] [place] [address], [facility] Glucose [Mass/Vol] 107 mg/dL High 70-100 [facility] Comment on above: Order Comment: No: D o not add to previous draw Performed By: #### 0 0071 ####[facility] [facility] [place] [address], [facility] Potassium [Moles/Vol] 4.6 mmol/L Normal 3.5-5.1 [facility] Comment on above: Order Comment: No: D o not add to previous draw Performed By: #### 0 0071 ####[facility] Sodium [Moles/Vol] 134 mmol/L Low 136-145 [facility] Comment on above: Order Comment: No: D o not add to previous draw Performed By: #### 0 0071 ####[facility] Urea nitrogen [Mass/Vol] 21 mg/dL Normal 7-25 [facility] Comment on above: Order Comment: No: D o not add to previous draw Performed By: #### 0 0071 ####[facility] CBC W/DIFFon 04-26-2021 ABS IMM GRANS 0.0 10*3/uL Normal 0.0-0.2 [facility] Comment on above: Order Comment: No: D o not add to previous draw Performed By: #### 5 3 #### [facility] [address] [place] [address], [facility] ABS NEUTROPHILS 4.8 10*3/uL Normal 1.6-7.6 [facility] Comment on above: Order Comment: No: D o not add to previous draw Performed By: #### 5 3 #### [facility] [address] [facility] [place] [place] [address], [facility] Basophils (Bld) [#/Vol] 0.0 10*3/uL Normal 0.0-0.2 [facility] Comment on above: Order Comment: No: D o not add to previous draw Performed By: #### 5 3 #### [facility] [address] [place] [address], [facility] Basophils/100 WBC (Bld) 0.6 % Normal 0.0-1.0 T [facility] Comment on above: Order Comment: No: D o not add to previous draw Performed By: #### 5 3 #### [facility] [address] [place] [address], [facility] Eosinophils (Bld) [#/Vol] 0.4 10*3/uL Normal 0.0-0.5 [facility] Comment on above: Order Comment: No: D o not add to previous draw Performed By: #### 5 0103 #### [facility] [address] [place] [address], [facility] Eosinophils/100 WBC (Bld) 6.0 % Normal 0.0-6.0 [facility] Comment on above: Order Comment: No: D o not add to previous draw Performed By: #### 5 0103 #### [facility] [address] [place] [id number], [facility] Erythrocyte distribution width (RBC) [Ratio] 13.1 % Normal 11.5-15.0 [facility] Comment on above: Order Comment: No: D o not add to previous draw Performed By: #### 5 0103 #### [facility] [address] [place] [address], [facility] Hematocrit (Bld) [Volume fraction] 27.8 % Low 36.0-45.0 [facility] Comment on above: Order Comment: No: D o not add to previous draw Performed By: #### 5 0103 #### [facility] [address] [place] [address], [facility] Hemoglobin (Bld) [Mass/Vol] 9.0 g/dL Low 12.0-15.0 [facility] Comment on above: Order Comment: No: D o not add to previous draw Performed By: #### 5 0103 #### [facility] [address] [place] [address], [facility] IMMATURE GRANS 0.3 % Normal 0.0-1.0 [facility] Comment on above: Order Comment: No: D o not add to previous draw Performed By: #### 5 0103 #### [facility] [address] [place] [address], [facility] Lymphocytes (Bld) [#/Vol] 0.7 10*3/uL Low 1.2-4.0 [facility] Comment on above: Order Comment: No: D o not add to previous draw Performed By: #### 5 0103 #### [facility] [address] [place] [address], [facility] Lymphocytes/100 WBC (Bld) 9.8 % Low 20.0-45.0 [facility] Comment on above: Order Comment: No: D o not add to previous draw Performed By: #### 5 0103 #### [facility] [address] [place] [address], [facility] MCH (RBC) [Entitic mass] 33.5 pg High 27.0-33.0 [facility] Comment on above: Order Comment: No: D o not add to previous draw Performed By: #### 5 0103 #### [facility] [address] [place] [address], [facility] MCHC (RBC) [Mass/Vol] 32.4 g/dL Normal 32.0-35.0 [facility] Comment on above: Order Comment: No: D o not add to previous draw Performed By: #### 5 0103 #### [facility] [address] [place] [address], [facility] MCV (RBC) [Entitic vol] 103.3 fL High 82.0-98.0 [facility] Comment on above: Order Comment: No: D o not add to previous draw Performed By: #### 5 0103 #### [facility] [address] [place] [address], [facility] Monocytes (Bld) [#/Vol] 0.7 10*3/uL Normal 0.1-1.0 [facility] Comment on above: Order Comment: No: D o not add to previous draw Performed By: #### 5 0103 #### [facility] [address] [place] [address], [facility] MONOS 10.4 % Normal 5.0-12.0 [facility] Comment on above: Order Comment: No: D o not add to previous draw Performed By: #### 5 0103 #### [facility] [address] [place] [address], [facility] Neutrophils/100 WBC (Bld) 72.9 % High 40.0-72.0 [facility] Comment on above: Order Comment: No: D o not add to previous draw Performed By: #### 5 0103 #### [facility] [address] [place] [address], [facility] Nucleated RBC/100 WBC (Bld) [Ratio] 0 % Normal 0-0 [facility] Comment on above: Order Comment: No: D o not add to previous draw Performed By: #### 5 0103 #### [facility] [address] [place] [address], [place] PLAT CNT 213 10*3/uL Normal 150-400 [facility] Comment on above: Order Comment: No: D o not add to previous draw Performed By: #### 5 0103 #### [facility] [address] [place] [address], [facility] RBC (Bld) [#/Vol] 2.69 10*6/uL Low 3.80-5.00 [facility] Comment on above: Order Comment: No: D o not add to previous draw Performed By: #### 5 0103 #### [facility] [address] [place] [address], [place] WBC (Bld) [#/Vol] 6.62 10*3/uL Normal 4.00-10.60 [facility] Comment on above: Order Comment: No: D o not add to previous draw Performed By: #### 5 0103 #### [facility] [address] [facility]. [address] Cardiovascular Lab Reporton 04-26-2021 Cardiovascular Lab Report [facility] Patient Name: Linda Nascimento [facility] Jonna Gonzalez MR #: [id number] Department of Physician: Enoch Frankel MD Medicine Service Date: 04/26/2021 Division of Birthdate: 1950 Cardiology Room #: [id number] Adult Cardiovascular Services [facility] [address] [facility]. [place], [place] [address] Cardiovascular Laboratory Report PACEMAKER IMPLANT PROCEDURE NOTE [...] using modified seldinger technique using a 5 Northern Irish micro-puncture needle on two occasions and 0.35 wires were placed. Local infiltration of 1% Lidocaine was performed, and an incision was created in the left upper chest. Dissection was then performed using cautery down to the fascial plane above the muscle and a small pocket was created for the device. 6 [place] Safesheaths were placed over the wire. An active fixation [employer] pacing lead was then delivered through the 6Fsheath to the right ventricle. After confirmation of lead position on orthogonal views (GONZALES and EQUATORIAL GUINEAN) to confirm septal position, the screw was activated, and the lead was placed in the right ventricular mid cavity towards the septum. After confirmation of good sensing parameters, injury pattern and pacing thresholds, 10V pacing was done and no diaphragmatic stimulation was noted. It was then secured in the pocket using three 1-0 Silk sutures. Then an active fixation [employer] lead was delivered through the 6Fsheath to the right atrial appendage. After confirmation of lead position on orthogonal views (GONZALES and EQUATORIAL GUINEAN), the screw was activated. RA lead was [...] immediate procedural complications were noted. Device info: Datumateronik Edora Model# 8DRT Serial# [id number] RA lead: Model# Biotronik Solia S53 Serial# [id number] Sensin.9mV Threshold: 1.1V@0.5ms Impedance: 429 Ohms RV lead: Model (more content not included)... Normal [facility] BASIC METABOLIC PANELon 11-1 Calcium [Mass/Vol] 8.6 mg/dL Normal 8.6-10.3 [facility] Comment on above: Order Comment: No: D o not add to previous draw Performed By: #### 0 0071 ####[facility] [place] [address], [facility] Chloride [Moles/Vol] 101 mmol/L Normal 98-107 [facility] Comment on above: Order Comment: No: D o not add to previous draw Performed By: #### 0 0071 ####[facility] [place] [address], [facility] CO2 [Moles/Vol] 24 mmol/L Normal 21-31 [facility] Comment on above: Order Comment: No: D o not add to previous draw Performed By: #### 0 0071 ####[facility] Creatinine [Mass/Vol] 1.36 mg/dL High 0.60-1.20 [facility] Comment on above: Order Comment: No: D o not add to previous draw Performed By: #### 0 0071 ####[facility] eGFR- 46 ml/min/1.73sq m Abnormal >60 [facility] Comment on above: Order Comment: No: D o not add to previous draw Result Comment: Calc ulation may not be valid for patients over 70 years Performed By: #### 0 0071 ####[facility] eGFR- non- 39 ml/min/1.73sq m Abnormal >60 [facility] Comment on above: Order Comment: No: D o not add to previous draw Result Comment: Calc ulation may not be valid for patients over 70 years Performed By: #### 0 0071 ####[facility] [place] [address], [facility] Glucose [Mass/Vol] 98 mg/dL Normal 70-100 [facility] Comment on above: Order Comment: No: D o not add to previous draw Performed By: #### 0 0071 ####[facility] [place] [address], [facility] Potassium [Moles/Vol] 4.4 mmol/L Normal 3.5-5.1 [facility] Comment on above: Order Comment: No: D o not add to previous draw Performed By: #### 0 0071 ####[facility] [place] [address], [facility] Sodium [Moles/Vol] 132 mmol/L Low 136-145 [facility] Comment on above: Order Comment: No: D o not add to previous draw Performed By: #### 0 0071 ####[facility] [place] [address], [facility] Urea nitrogen [Mass/Vol] 22 mg/dL Normal 7-25 [facility] Comment on above: Order Comment: No: D o not add to previous draw Performed By: #### 0 0071 ####[facility] [place] [address], [facility] HEMATOCRITon 04-25-2021 Hematocrit (Bld) [Volume fraction] 28.3 % Low 36.0-45.0 [facility] Comment on above: Order Comment: No: D o not add to previous draw Performed By: #### 5 7307, 84976 #### [facility] [address] [place] [address], [facility] HEMOGLOBINon 04-25-2021 Hemoglobin (Bld) [Mass/Vol] 9.0 g/dL Low 12.0-15.0 [facility] Comment on above: Order Comment: No: D o not add to previous draw Performed By: #### 9 2097, 18640 #### [facility] [address] [place] [address], [facility] BASIC METABOLIC PANELon 04-12 Calcium [Mass/Vol] 8.8 mg/dL Normal 8.6-10.3 [facility] Comment on above: Order Comment: No: D o not add to previous draw Performed By: #### 1 69, 39180 ####[facility] [place] [address], [facility] Chloride [Moles/Vol] 101 mmol/L Normal 98-107 [facility] Comment on above: Order Comment: No: D o not add to previous draw Performed By: #### 1 69, 08526 ####[facility] [place] [address], [facility] CO2 [Moles/Vol] 26 mmol/L Normal 21-31 [facility] Comment on above: Order Comment: No: D o not add to previous draw Performed By: #### 1 69, 93518 ####[facility] [place] [address], [facility] Creatinine [Mass/Vol] 1.17 mg/dL Normal 0.60-1.20 [facility] Comment on above: Order Comment: No: D o not add to previous draw Performed By: #### 1 69, 36799 ####[facility] [place] [address], [facility] eGFR- 55 ml/min/1.73sq m Abnormal >60 [facility] Comment on above: Order Comment: No: D o not add to previous draw Result Comment: Calc ulation may not be valid for patients over 70 years Performed By: #### 1 69, 94746 ####[facility] [place] [address], [facility] eGFR- non- 45 ml/min/1.73sq m Abnormal >60 [facility] Comment on above: Order Comment: No: D o not add to previous draw Result Comment: Calc ulation may not be valid for patients over 70 years Performed By: #### 1 69, 73040 ####[facility] [place] [address], [facility] Glucose [Mass/Vol] 102 mg/dL High 70-100 [facility] Comment on above: Order Comment: No: D o not add to previous draw Performed By: #### 1 69, 21654 ####[facility] [place] [address], [facility] Potassium [Moles/Vol] 4.5 mmol/L Normal 3.5-5.1 [facility] Comment on above: Order Comment: No: D o not add to previous draw Performed By: #### 1 69, 31252 ####[facility] [id number], [place] Sodium [Moles/Vol] 133 mmol/L Low 136-145 [facility] Comment on above: Order Comment: No: D o not add to previous draw Performed By: #### 1 69, 49596 ####[facility] [id number], [place] Urea nitrogen [Mass/Vol] 20 mg/dL Normal 7-25 [facility] Comment on above: Order Comment: No: D o not add to previous draw Performed By: #### 1 69, 15619 ####[facility] [id number], [facility] HEMOGLOBINon 04-24-2021 Hemoglobin (Bld) [Mass/Vol] 10.0 g/dL Low 12.0-15.0 [facility] Comment on above: Order Comment: Yes: Add to Previous draw if able NEEDS DRAWN. NO LAV TUBE FROM AM LABS Performed By: #### 9 2089 #### [facility] [address] [place] [address], [facility] MAGNESIUM BLOODon 04-24-2021 Magnesium [Mass/Vol] 2.1 mg/dL Normal 1.9-2.7 [facility] Comment on above: Order Comment: No: D o not add to previous draw Performed By: #### 1 0, 94578 ####[facility] [facility] [place] [address], [facility] BASIC METABOLIC PANELon 04-12 Calcium [Mass/Vol] 8.4 mg/dL Low 8.6-10.3 [facility] Comment on above: Order Comment: Unkno wn Performed By: #### 1 0, 37284, 85293 ####[facility] [facility] [place] [address], [facility] Chloride [Moles/Vol] 100 mmol/L Normal 98-107 [facility] Comment on above: Order Comment: Unkno wn Performed By: #### 1 0, 38896, 76185 ####[facility] [facility] [place] [address], [facility] CO2 [Moles/Vol] 25 mmol/L Normal 21-31 [facility] Comment on above: Order Comment: Unkno wn Performed By: #### 1 0070, 34067, 46181 ####[facility] [facility] [place] [address], [facility] Creatinine [Mass/Vol] 1.30 mg/dL High 0.60-1.20 [facility] Comment on above: Order Comment: Unkno wn Performed By: #### 1 0070, 34457, 75107 ####[facility] [place] [address], [facility] eGFR- 49 ml/min/1.73sq m Abnormal >60 [facility] Comment on above: Order Comment: Unkno wn Result Comment: Calc ulation may not be valid for patients over 70 years Performed By: #### 1 0070, 05277, 35085 ####[facility] [place] [address], [place] eGFR- non- 40 ml/min/1.73sq m Abnormal >60 [facility] Comment on above: Order Comment: Unkno wn Result Comment: Calc ulation may not be valid for patients over 70 years Performed By: #### 1 0070, 85983, 29588 ####[facility] [facility] [address], [place] Glucose [Mass/Vol] 93 mg/dL Normal 70-100 [facility] Comment on above: Order Comment: Unkno wn Performed By: #### 1 0, 54986, 62841 ####[facility] [facility] [place] [address], [place] Potassium [Moles/Vol] 4.1 mmol/L Normal 3.5-5.1 [facility] Comment on above: Order Comment: Unkno wn Performed By: #### 1 0, 06498, 17005 ####[facility] [facility] [address], [place] Sodium [Moles/Vol] 133 mmol/L Low 136-145 [facility] Comment on above: Order Comment: Unkno wn Performed By: #### 1 0, 36007, 26476 ####[facility] [facility] [place] [address], [place] Urea nitrogen [Mass/Vol] 20 mg/dL Normal 7-25 [facility] Comment on above: Order Comment: Unkno wn Performed By: #### 1 0, 43388, 48926 ####[facility] [facility] [place] [address], [facility] CBC W/DIFFon 04-23-2021 ABS IMM GRANS 0.1 10*3/uL Normal 0.0-0.2 [facility] Comment on above: Order Comment: Unkno wn Performed By: #### 5 0103 #### [facility] [address] [place] [address], [facility] ABS NEUTROPHILS 7.8 10*3/uL High 1.6-7.6 [facility] Comment on above: Order Comment: Unkno wn Performed By: #### 5 3 #### [facility] [address] [place] [address], [facility] Basophils (Bld) [#/Vol] 0.1 10*3/uL Normal 0.0-0.2 [facility] Comment on above: Order Comment: Unkno wn Performed By: #### 5 0103 #### [facility] [address] [facility] [place] [address], [facility] Basophils/100 WBC (Bld) 0.5 % Normal 0.0-1.0 [facility] Comment on above: Order Comment: Unkno wn Performed By: #### 5 102 #### [facility] [address] [facility] [place] [address], [facility] Eosinophils (Bld) [#/Vol] 0.4 10*3/uL Normal 0.0-0.5 [facility] Comment on above: Order Comment: Unkno wn Performed By: #### 5 3 #### [facility] [address] [facility] [place] [address], [facility] Eosinophils/100 WBC (Bld) 3.5 % Normal 0.0-6.0 [facility] Comment on above: Order Comment: Unkno wn Performed By: #### 5 3 #### [facility] [address] [facility] Erythrocyte distribution width (RBC) [Ratio] 13.2 % Normal 11.5-15.0 [facility] Comment on above: Order Comment: Unkno wn Performed By: #### 5 0103 #### [facility] [address] [place] [address], [facility] Hematocrit (Bld) [Volume fraction] 29.2 % Low 36.0-45.0 [facility] Comment on above: Order Comment: Unkno wn Performed By: #### 5 0103 #### [facility] [address] [facility] [address], [facility] Hemoglobin (Bld) [Mass/Vol] 9.3 g/dL Low 12.0-15.0 [facility] Comment on above: Order Comment: Unkno wn Performed By: #### 5 3 #### [facility] [address] [address], [facility] IMMATURE GRANS 0.6 % Normal 0.0-1.0 [facility] Comment on above: Order Comment: Unkno wn Performed By: #### 5 0103 #### [facility] [address] [facility] [place] [address], [facility] Lymphocytes (Bld) [#/Vol] 0.7 10*3/uL Low 1.2-4.0 [facility] Comment on above: Order Comment: Unkno wn Performed By: #### 5 0103 #### [facility] [address] [address], [facility] Lymphocytes/100 WBC (Bld) 6.8 % Low 20.0-45.0 [facility] Comment on above: Order Comment: Unkno wn Performed By: #### 5 3 #### [facility] [address] [place] [address], [facility] MCH (RBC) [Entitic mass] 33.5 pg High 27.0-33.0 [facility] Comment on above: Order Comment: Unkno wn Performed By: #### 5 0103 #### [facility] [address] MCHC (RBC) [Mass/Vol] 31.8 g/dL Low 32.0-35.0 [facility] Comment on above: Order Comment: Unkno wn Performed By: #### 5 0103 #### [facility] [address] MCV (RBC) [Entitic vol] 105.0 fL High 82.0-98.0 T [facility] Comment on above: Order Comment: Unkno wn Performed By: #### 5 0103 #### [facility] [address] [facility] Monocytes (Bld) [#/Vol] 1.0 10*3/uL Normal 0.1-1.0 [facility] Comment on above: Order Comment: Unkno wn Performed By: #### 5 0103 #### [facility] [address] [facility]. [address] MONOS 10.0 % Normal 5.0-12.0 [facility] Comment on above: Order Comment: Unkno wn Performed By: #### 5 3 #### [facility] [address] [facility] Neutrophils/100 WBC (Bld) 78.6 % High 40.0-72.0 [facility] Comment on above: Order Comment: Unkno wn Performed By: #### 5 0103 #### [facility] [address] [facility] [place] [address], [facility] Nucleated RBC/100 WBC (Bld) [Ratio] 0 % Normal 0-0 [facility] Comment on above: Order Comment: Unkno wn Performed By: #### 5 3 #### [facility] [address] PLAT CNT 227 10*3/uL Normal 150-400 [facility] Comment on above: Order Comment: Unkno wn Performed By: #### 5 0103 #### [facility] [address] RBC (Bld) [#/Vol] 2.78 10*6/uL Low 3.80-5.00 The [facility] Comment on above: Order Comment: Unkno wn Performed By: #### 5 0103 #### [facility] [address] [place] [address], [facility] WBC (Bld) [#/Vol] 9.87 10*3/uL Normal 4.00-10.60 The [facility] Comment on above: Order Comment: Unkno wn Performed By: #### 5 0103 #### [facility] [address] [facility] MAGNESIUM BLOODon 04-23-2021 Magnesium [Mass/Vol] 2.1 mg/dL Normal 1.9-2.7 [facility] Comment on above: Order Comment: Unkno wn Performed By: #### 1 0070, 20219, 88701 ####[facility] [facility] PHOSPHORUS BLOODon Phosphate [Mass/Vol] 2.8 mg/dL Normal 2.5-5.0 [facility] Comment on above: Order Comment: Unkno wn Performed By: #### 1 0, 54715, 80281 ####[facility] APTTon 04-22-2021 aPTT Coag (Bld) [Time] 27.6 s Normal 25.0-35.0 Th e [facility] Comment on above: Order Comment: [...] THIS PURPOSE. Performed By: #### 5 7307, 68720 #### [facility] [address] [place] [address], [facility] BASIC METABOLIC PANELon 11- Calcium [Mass/Vol] 8.8 mg/dL Normal 8.6-10.3 [facility] Comment on above: Order Comment: No: D o not add to previous draw Performed By: #### 4 1000, 13516, 70503, 63819 ####[facility] [facility] [place] [address], [facility] Chloride [Moles/Vol] 99 mmol/L Normal 98-107 [facility] Comment on above: Order Comment: No: D o not add to previous draw Performed By: #### 4 1000, 69805, 13234, 97993 ####[facility] [facility] [place] [address], [facility] CO2 [Moles/Vol] 27 mmol/L Normal 21-31 [facility] Comment on above: Order Comment: No: D o not add to previous draw Performed By: #### 4 1000, 05188, 97715, 94300 ####[facility] [facility] [place] [address], [facility] Creatinine [Mass/Vol] 1.39 mg/dL High 0.60-1.20 [facility] Comment on above: Order Comment: No: D o not add to previous draw Performed By: #### 4 1000, 03920, 41261, 00011 ####[facility] eGFR- 45 ml/min/1.73sq m Abnormal >60 [facility] Comment on above: Order Comment: No: D o not add to previous draw Result Comment: Calc ulation may not be valid for patients over 70 years Performed By: #### 4 1000, 13618, 22122, 98272 ####[facility] [facility] [place] [address], [facility] eGFR- non- 37 ml/min/1.73sq m Abnormal >60 The [facility] Comment on above: Order Comment: No: D o not add to previous draw Result Comment: Calc ulation may not be valid for patients over 70 years Performed By: #### 4 1000, 01484, 64814, 32029 ####[facility] [place] [address], [facility] Glucose [Mass/Vol] 91 mg/dL Normal 70-100 The [facility] Comment on above: Order Comment: No: D o not add to previous draw Performed By: #### 4 1000, 29865, 47018, 61675 ####[facility] [facility] [place] [address], [facility] Potassium [Moles/Vol] 4.4 mmol/L Normal 3.5-5.1 [facility] Comment on above: Order Comment: No: D o not add to previous draw Performed By: #### 4 1000, 80191, 62086, 23611 ####[facility] [facility] [id number], [facility] Sodium [Moles/Vol] 133 mmol/L Low 136-145 The [facility] Comment on above: Order Comment: No: D o not add to previous draw Performed By: #### 4 1000, 22171, 45818, 87532 ####[facility] [facility] [id number], [facility] Urea nitrogen [Mass/Vol] 24 mg/dL Normal 7-25 [facility] Comment on above: Order Comment: No: D o not add to previous draw Performed By: #### 4 1000, 83598, 53988, 68085 ####[facility] [place] [address], [facility] CBC W/DIFFon 04-22-2021 ABS IMM GRANS 0.0 10*3/uL Normal 0.0-0.2 [facility] Comment on above: Performed By: #### 5 0103 #### [facility] [address] [place] [address], [facility] ABS NEUTROPHILS 5.8 10*3/uL Normal 1.6-7.6 The [facility] Comment on above: Performed By: #### 5 0103 #### [facility] [address] [place] [address], [facility] Basophils (Bld) [#/Vol] 0.1 10*3/uL Normal 0.0-0.2 [facility] Comment on above: Performed By: #### 5 0103 #### [facility] [address] [place] [address], [facility] Basophils/100 WBC (Bld) 0.6 % Normal 0.0-1.0 T will [facility] Comment on above: Performed By: #### 5 0103 #### [facility] [address] [place] [address], [facility] Eosinophils (Bld) [#/Vol] 0.2 10*3/uL Normal 0.0-0.5 [facility] Comment on above: Performed By: #### 5 0103 #### [facility] [address] [place] [address], [facility] Eosinophils/100 WBC (Bld) 2.7 % Normal 0.0-6.0 [facility] Comment on above: Performed By: #### 5 0103 #### [facility] [address] [place] [address], [facility] Erythrocyte distribution width (RBC) [Ratio] 13.0 % Normal 11.5-15.0 [facility] Comment on above: Performed By: #### 5 0103 #### [facility] [address] [place] [address], [facility] Hematocrit (Bld) [Volume fraction] 29.2 % Low 36.0-45.0 [facility] Comment on above: Performed By: #### 5 0103 #### [facility] [address] [address], [facility] Hemoglobin (Bld) [Mass/Vol] 9.6 g/dL Low 12.0-15.0 [facility] Comment on above: Performed By: #### 5 0103 #### [facility] [address] [place] [address], [facility] IMMATURE GRANS 0.5 % Normal 0.0-1.0 The [facility]imir [facility] Comment on above: Performed By: #### 5 3 #### [facility] [address] [facility] [place] [address], [facility] Lymphocytes (Bld) [#/Vol] 1.1 10*3/uL Low 1.2-4.0 [facility] Comment on above: Performed By: #### 5 3 #### [facility] [address] [facility] [place] [place] [address], [facility] Lymphocytes/100 WBC (Bld) 13.4 % Low 20.0-45.0 [facility] Comment on above: Performed By: #### 5 0103 #### [facility] [address] [facility] [place] [address], [facility] MCH (RBC) [Entitic mass] 33.1 pg High 27.0-33.0 [facility] Comment on above: Performed By: #### 5 0103 #### [facility] [address] [place] [address], [facility] MCHC (RBC) [Mass/Vol] 32.9 g/dL Normal 32.0-35.0 [facility] Comment on above: Performed By: #### 5 3 #### [facility] [address] [place] [address], [facility] MCV (RBC) [Entitic vol] 100.7 fL High 82.0-98.0 T he [facility] Comment on above: Performed By: #### 102 #### [facility] [address] [facility] [place] [address], [facility] Monocytes (Bld) [#/Vol] 0.7 10*3/uL Normal 0.1-1.0 [facility] Comment on above: Performed By: #### 102 #### [facility] [address] [facility] [place] [address], [facility] MONOS 9.1 % Normal 5.0-12.0 [facility] Comment on above: Performed By: #### 102 #### [facility] [address] [facility] [place] [address], [facility] Neutrophils/100 WBC (Bld) 73.7 % High 40.0-72.0 [facility] Comment on above: Performed By: #### 102 #### [facility] [address] [facility] [place] [place] [address], [facility] Nucleated RBC/100 WBC (Bld) [Ratio] 0 % Normal 0-0 [facility] Comment on above: Performed By: #### 5 102 #### [facility] [address] [facility] [place] [place] [address], [facility] PLAT CNT 234 10*3/uL Normal 150-400 [facility] Comment on above: Performed By: #### 102 #### [facility] [address] [facility] [place] [address], [facility] RBC (Bld) [#/Vol] 2.90 10*6/uL Low 3.80-5.00 [facility] Comment on above: Performed By: #### 102 #### [facility] [address] [facility] [place] [address], [facility] WBC (Bld) [#/Vol] 7.81 10*3/uL Normal 4.00-10.60 The [facility] Comment on above: Performed By: #### 5 0103 #### [facility] [address] [facility] [place] [address], [facility] FERRITINon 04-22-2021 Ferritin [Mass/Vol] 74 ng/mL Normal 11-307 [facility] Comment on above: Order Comment: No: D o not add to previous draw Performed By: #### 8 4044, 65413, 25549, 26653, 60207, 08776 ####[facility] [facility] [place] [address], [facility] FOLATE SERUMon 04-22-2021 SERUM FOLATE 29.00 ng/mL Normal 6.60-1000.0 0 [facility] Comment on above: Order Comment: No: D o not add to previous draw Result Comment: Norm al range reflects World Health Organization International Standard Performed By: #### 8 4044, 22381, 80421, 03677, 28649, 32759 ####[facility] [facility] [place] [address], [facility] HAPTOGLOBINon 04-22-2021 HAPTOGLOBIN 302 mg/dL High 26-164 [facility] Comment on above: Order Comment: No: D o not add to previous draw Performed By: #### 3 0103 #### [facility] [address] [facility] [place] [address], [facility] KNEE LEFT 1 OR 2 VWSon 04-22 KNEE LEFT 1 OR 2 VWS [facility] Department of Radiology [address] [place] [id number] Patient Name: LINDA NASCIMENTO : 1950 Sex: F Age: Race: White Pt. Location: [id number] Patient Status: I Ordered Date: 04/22/2021 2:30:00 AM Completed Date: 04/22/2021 02:52 AM Requesting Provider: GUNNAR CHRISTIANSON Attending Provider: ROBERTA VELA Report Copy To: Signs & Symptoms: Pain ( specify Location) History: See Comments Comments: evaluate for FX Exam: KNEE LEFT 1 OR 2 VWS KNEE LEFT 1 OR 2 VWS 04/22/2021 [...] report. Electronically signed: Boris Jara. Transcribed by: [email or web address], User Resident: NITHIN GARAY Electronically Signed by: BORIS JARA @ 04/22/2021 03:09 AM I personally read this/these film(s) with this resident Normal [facility] Comment on above: Order Comment: No: D o not add to previous draw KNEE RIGHT 1 OR 2 VWSon 04-12 KNEE RIGHT 1 OR 2 [facility] Department of Radiology [address] [place] [address] Patient Name: LINDA NASCIMENTO : 1950 Sex: F Age: Race: White Pt. Location: [id number] Patient Status: I Ordered Date: 04/22/2021 2:30:00 AM Completed Date: 04/22/2021 02:52 AM Requesting Provider: GUNNAR CHRISTIANSON Attending Provider: ROBERTA VELA Report Copy To: Signs & Symptoms: Pain ( specify Location) History: See Comments Comments: evaluate for FX Exam: KNEE RIGHT 1 OR 2 [facility] KNEE RIGHT 1 OR 2 [facility] 04/22/2021 2:52 AM CLINICAL INDICATIONS: Pain [...] report. Electronically signed: Boris Jara. Transcribed by: [email or web address], User Resident: NITHIN GARAY Electronically Signed by: BORIS JARA @ 04/22/2021 03:09 AM I personally read this/these film(s) with this resident Normal [facility] Comment on above: Order Comment: No: D o not add to previous draw LDH BLOODon 04-22-2021 LDH 232 Units/L Normal 140-271 [facility] Comment on above: Order Comment: No: D o not add to previous draw Performed By: #### 8 4044, 07693, 78054, 41720, 74198, 79722 ####[facility] [place] [address], [place] LIVER BATTERYon 04-22-2021 Albumin [Mass/Vol] 3.9 g/dL Normal 3.5-5.7 [facility] Comment on above: Order Comment: No: D o not add to previous draw Performed By: #### 5 7307, 99899 #### [facility] [address] [place] [address], [place] ALKALINE PHOSPH 74 IU/L Normal 34-104 [facility] Comment on above: Order Comment: No: D o not add to previous draw Performed By: #### 5 7307, 59592 #### [facility] [address] [place] [address], [place] ALT [Catalytic activity/Vol] 9 U/L Normal 7-52 [facility] Comment on above: Order Comment: No: D o not add to previous draw Performed By: #### 5 7307, 84769 #### [facility] [address] [place] [address], [place] AST [Catalytic activity/Vol] 19 U/L Normal 13-39 [facility] Comment on above: Order Comment: No: D o not add to previous draw Performed By: #### 5 7307, 27394 #### [facility] [address] [place] [address], [place] Bilirubin [Mass/Vol] 0.5 mg/dL Normal 0.3-1.0 [facility] Comment on above: Order Comment: No: D o not add to previous draw Performed By: #### 5 7307, 96498 #### [facility] [address] [place] [address], [facility] Bilirubin.direct [Mass/Vol] 0.1 mg/dL Normal 0.0-0.2 [facility] Comment on above: Order Comment: No: D o not add to previous draw Performed By: #### 5 7307, 92717 #### [facility] [address] [place] [address], [facility] Protein [Mass/Vol] 6.5 g/dL Normal 6.0-8.3 [facility] Comment on above: Order Comment: No: D o not add to previous draw Performed By: #### 5 7307, 55416 #### [facility] [address] [place] [address], [facility] MAGNESIUM BLOODon 04-22-2021 Magnesium [Mass/Vol] 2.0 mg/dL Normal 1.9-2.7 [facility] Comment on above: Order Comment: No: D o not add to previous draw Performed By: #### 4 1000, 40547, 63123, 91242 ####[facility] [place] [address], [facility] PERIPHERAL SMEARon 1 Nucleated RBC/100 WBC (Bld) [Ratio] 0 % Normal 0-0 [facility] Comment on above: Order Comment: No: D o not add to previous draw Performed By: #### 5 7307, 11721 #### [facility] [address] [place] [address], [facility] OTHER PS1 Macrocytic anemia with no significant RBC morphology. Normal [facility] Comment on above: Order Comment: No: D o not add to previous draw Performed By: #### 5 7307, 67044 #### [facility] [address] OTHER PS2 Check serum B12 and folate. Normal [facility] Comment on above: Order Comment: No: D o not add to previous draw Performed By: #### 5 7307, 48250 #### [facility] [address] OTHER PS3 Otherwise unremarkable leukocytes and platelets. Normal [facility] Comment on above: Order Comment: No: D o not add to previous draw Performed By: #### 5 7307, 09974 #### [facility] [address] OTHER PS4 Normal [facility] Comment on above: Order Comment: No: D o not add to previous draw Result Comment: Chec ked by Mayra Encinas M.D. Performed By: #### 5 7307, 91556 #### [facility] [address] [facility] [address] PHOSPHORUS BLOODon 1 Phosphate [Mass/Vol] 3.4 mg/dL Normal 2.5-5.0 [facility] Comment on above: Order Comment: No: D o not add to previous draw Performed By: #### 5 7307, 52934 #### [facility] [address] PROTHROMBIN TIMEon 1 INR Coag (PPP) [Relative time] 1.01 {INR} Normal 0.91-1.16 [facility] Comment on above: Order Comment: No: D o not add to previous draw Result Comment: ACCC P RECOMMENDED INR FOR WARFARIN THERAPY ------- CONDITION INR PROPHYLAXIS OF VENOUS THROMBOSIS 2-3 (HIGH-RISK SURGERY) TREATMENT OF VENOUS THROMBOSIS 2-3 TREATMENT OF PULMONARY EMBOLISM 2-3 PREVENTION OF SYSTEMIC EMBOLISM: 2-3 ACUTE MYOCARDIAL INFARCTION TISSUE HEART VALVES VALVULAR HEART DISEASE ATRIAL FIBRILLATION RECURRENT SYSTEMIC EMBOLISM MECHANICAL HEART VALVE 2.5-3.5 FROM: ORAL ANTICOAGULANTS. MECHANISM OF ACTION, CLINICAL EFFECTIVENESS, AND OPTIMAL THERAPEUTIC RANGE. CHEST 1995;108:231S-246S. Performed By: #### 5 7307, 62034 #### [facility] [address] PT Coag (PPP) [Time] 13.3 s Normal 12.3-14.8 [facility] Comment on above: Order Comment: No: D o not add to previous draw Result Comment: ALL RESULTS MUST BE INTERPRETED WITH RESPECT TO BLOOD DRAWING ARTIFACT OR DILUTION ERROR OF ANTICOAGULANT AT THE TIME OF SAMPLING. Performed By: #### 5 7307, 11322 #### [facility] [address] RETICULOCYTE PANELon 11-11-2 021 ABSOLUTE RETICULOCYTE 0.0711 10*6/uL Normal 0.02 50-0.10 00 [facility] Comment on above: Order Comment: No: D o not add to previous draw Performed By: #### 5 7307, 65021 #### [facility] [address] IMMATURE RETICULOCYTE FRACTION 12.8 % Normal 2.0-16.0 [facility] Comment on above: Order Comment: No: D o not add to previous draw Performed By: #### 5 7307, 96238 #### [facility] [address] [facility] [place] [address], [facility] RETIC COUNT 2.37 % High 0.50-1.80 [facility] Comment on above: Order Comment: No: D o not add to previous draw Performed By: #### 5 7307, 08142 #### [facility] [address] RETICULOCYTE HEMOGLOBIN 37.5 pg High 28.0-36.0 [facility] Comment on above: Order Comment: No: D o not add to previous draw Performed By: #### 5 7307, 95013 #### [facility] [address] [place] [address], [facility] TIBC- INCLUDES IRONon 2020 FE SATURATION 16 % Low 20-50 [facility] Comment on above: Order Comment: No: D o not add to previous draw Performed By: #### 8 4044, 57175, 34684, 80868, 46372, 25130 ####[facility] Iron [Mass/Vol] 54 ug/dL Normal 50-212 [facility] Comment on above: Order Comment: No: D o not add to previous draw Performed By: #### 8 4044, 58572, 53813, 92381, 17417, 12239 ####[facility] [facility] TIBC 332 mcg/dL Normal 250-450 [facility] Comment on above: Order Comment: No: D o not add to previous draw Performed By: #### 8 4044, 77512, 83650, 76272, 32547, 14405 ####[facility] UIBC 278 mcg/dL Normal 155-355 [facility] Comment on above: Order Comment: No: D o not add to previous draw Performed By: #### 8 4044, 76088, 47114, 82550, 48865, 85433 ####[facility] TSH3 WITH REFLEX FT4on 04-22 TSH 3RD GENERATION 1.72 uIU/mL Normal 0.34-5.60 [facility] Comment on above: Performed By: #### 8 4044, 52088, 52599, 88490, 79774, 77053 ####[facility] [facility] VITAMIN B12on 04-22-2021 Cobalamin (Vitamin B12) [Mass/Vol] 771 pg/mL Normal 180-914 [facility] Comment on above: Order Comment: No: D o not add to previous drawPt using restroom Result Comment: REFE RENCE RANGES: 180-914 pg/mL Normal 145-179 pg/mL Indeterminate <145 pg/mL Deficient Performed By: #### 8 4044, [id number], [id number], [id number], [id number], [id number] ####[facility] Vital Signs Date Time Vital Sign Value Performing Clinician Faci lity 10-06-2021 14:00-0400 Body height 165.1 cm Gunnar Fernandez Other [email or web address] Other 10-06-2021 14:00-0400 Body mass index (BMI) [Ratio] 40.77 kg/m2 Gunnar Fernandez Other [email or web address] Other 10-06-2021 14:00-0400 Body weight 111.13 kg Gunnar Fernandez Other [email or web address] Other Encounters Encounter Date Encounter Type Care Provider Facility Start: 07-31-2024 End: 07-31-[address] Mehta MD Work Phone: [facility] [address] Work Phone: Start: 07-31-2024 End: 07-31-[address] Mehta MD Work Phone: [facility] Work Phone: Start: 05-21-2024 End: 05-21-2024 ambulatory [facility] Start: 10-31-2023 End: 10-31-2023 ambulatory [facility] Start: 03-20-2023 End: 03-21-2023 ambulatory Ирина Hawkinsitis Facility:[facility] [place] Start: 01-23-2023 End: 01-24-2023 ambulatory Andrius Marioytautas Rossitis Facility:[facility] [place] Start: 01-09-2023 End: 01-10-2023 ambulatory Andrius Marioytautas Rossitis Facility:[facility] [place] Start: 12-12-2022 End: 12-13-2022 ambulatory Andchandnius Marioytautas Rossitis Facility:[facility] [place] Start: 10-25-2022 ambulatory LEÓN DIAS Facred lity:H1 Start: 10-14-2022 End: 10-14-2022 ambulatory LEONIE [...] Facility:H1 Start: 04-22-2022 End: 04-22-[address] TIMUR SPIVEY . Facility:H1 Start: 04-21-2022 End: 04-22-[address] MEHTA . Facility:H1 Start: 04-08-2022 End: 04-09-2022 ambulatory LEÓN Tejada [facility] Facility:H1 Start: 03-30-2022 End: 03-30-2022 ambulatory Rancho Chamorro Other [email or web address] Other Start: 03-30-2022 Telephone encounter Rancho BAKER [facility] Start: 03-28-2022 End: 03-29-[address] MEHTA . Facility:H1 Start: 03-27-[address] MEHTA . Facili ty:H1 Start: 03-24-2022 Office outpatient vi sit 25 minutes Rancho Chamorro [facility] [place] Start: 03-24-2022 End: 04-03-2022 ambulatory UNKNOWN PROVIDER [email or web address] Other Start: 03-16-2022 End: 03-16-2022 ambulatory Rancho Chamorro Other [email or web address] Other Start: 03-16-2022 Telephone encounter Rancho BAKER G [facility] Start: 03-11-2022 End: 03-12-[address] [facility] Mallory [facility] Facility:H1 Start: 02-18-2022 End: 02-19-2022 ambulatory LEÓN Tejada [facility] Facility:H1 Start: 02-11-2022 End: 02-12-[address] MEHTA . Facility:H1 Start: 01-28-2022 End: 01-29-2022 ambulatory LEÓN Tejada [facility] Facility:H1 Start: 01-11-2022 End: 01-12-[address] MEHTA . Facility:H1 Start: 01-04-2022 End: 01-05-2022 ambulatory LEÓN Tejada [facility] Facility:H1 Start: 12-23-2021 End: 12-23-2021 ambulatory Rancho Chamorro Other [email or web address] Other Start: 12-23-2021 Office outpatient vi sit 25 minutes Rancho DUNCAN [facility] Start: 12-20-2021 End: 12-21-2021 ambulatory LEÓN Tejada [facility] Facility:H1 Start: 12-13-2021 End: 12-14-2021 Evaluation and management of inpatient DR AVE MEHTA . Facility:H1 Start: 12-07-2021 [facility] Start: 12-06-2021 End: 12-06-2021 ambulatory LEÓN Tejada [facility] Facility:H1 Start: 12-05-2021 End: 12-05-[address] MEHTA . Facility:H1 Start: 12-02-2021 End: 12-03-[address] [facility] Mallory [facility] Facility:H1 Start: 12-02-2021 End: 12-03-2021 Encounter for preprocedural cardiovascular examination [facility] Mallory [facility] Facility:H1 Start: 11-30-2021 End: 12-01-[address] [facility] Mallory [facility] Facility:H1 Start: 11-29-2021 End: 11-29-2021 ambulatory MIRNA PARSONS . Facility:H1 Start: 11-17-2021 End: 11-17-2021 ambulatory Rancho Chamorro Other [email or web address] Other Start: 11-17-2021 Office outpatient vi sit 15 minutes Emilie Perez [facility] Start: 11-17-2021 Telephone encounter Rancho BAKER [facility] Start: 11-04-2021 End: 11-04-2021 ambulatory Rancho Chamorro Other [email or web address] Other Start: 11-04-2021 Telephone encounter Rancho BAKER G [facility] Start: 11-03-2021 (Procedure) Short Rancho Chamorro [facility] Start: 11-03-2021 End: 11-03-2021 ambulatory Rancho Chamorro Other [email or web address] Other Start: 11-03-2021 Office outpatient vi sit 25 minutes Emilie Perez [facility] Start: 10-28-2021 End: 10-28-2021 ambulatory Rancho Chamorro Other [email or web address] Other Start: 10-28-2021 Office outpatient vi sit 25 minutes Rancho Chamorro [facility] Start: 10-07-2021 End: 10-07-2021 ambulatory Gunnar Fernandez Other [email or web address] Other Start: 10-07-2021 Telephone encounter Gunnar BAKER G [facility] Start: 10-06-2021 End: 10-06-2021 ambulatory Gunnar Fernandez Other [email or web address] Other Start: 10-06-2021 Office outpatient vi sit 15 minutes Gunnar Fernandez [facility] Start: 09-08-2021 End: 09-08-2021 ambulatory Gunnar Fernandez Other [email or web address] Other Start: 09-08-2021 Office outpatient vi sit 15 minutes Gunnar Fernandez [facility] Start: 04-22-2021 End: 04-29-2021 Evaluation and management of inpatient ROBERTA DANE Facility:[facility] [[email or web address] Procedures Date Procedure Procedure Detail Performing Clinician Start: 12-12-2021 Transfusion of Nonau tologous Red Blood Cells into Peripheral Vein, Percutaneous Approach DR AVE MEHTA . Plan of Treatment Date Care Activity Detail Author Start: 07-31-2024 Aldolase measurement [facility] Start: 07-31-2024 Hemolytic complement CH50 level [facility] Start: 07-31-2024 Hepatitis B core ant ibody measurement [facility] Start: 07-31-2024 [facility] Angiotensin converti ng enzyme [Enzymatic activity/volume] in Serum or Plasma [facility] Chromatin Ab [Units/ volume] in Serum or Plasma [facility] Complement C3 [Mass/ volume] in Serum or Plasma [facility] Complement C4 [Mass/ volume] in Serum or Plasma [facility] Hepatitis B virus hernandez rface Ab [Presence] in Serum [facility] Hepatitis B virus hernandez rface Ag [Presence] in Serum or Plasma by Immunoassay [facility] Hepatitis C virus Ig G Ab [Presence] in Serum or Plasma by Immunoassay [facility] Homogenous nuclear A b pattern [Titer] in Serum [facility] Nuclear Ab [Titer] in Serum [facility] Reagin Ab [Presence] in Serum by RPR [facility] Thyroglobulin Ab [Un its/volume] in Serum or Plasma [facility] Thyroperoxidase Ab [ Units/volume] in Serum or Plasma [facility] Immunizations Immunization Date Immunization Notes Care Provider Fa cility 07-13-2020 COVID-19 mRNAAnayeliirnatmilo (Pfizer) Ave Mehta MD Work Phone: [facility] 06-19-2020 COVID-19 Sarah Heredia (Pfizer) Ave Mehta MD Work Phone: [facility] Payers Date Payer Category Payer Self-pay 2023 Medicaid [id number] 2022 Medicare 2022 Unknown 2002 Medicare [id number] 1959 Medicare [id number] 1959 Self-pay [id number] 1959 Unknown [id number] 1948 Unknown [id number] 2.16.8 40.1.778268.3.579.2.647 1948 Unknown [id number] 2.16. 840.1.155004.3.579.2.732 1948 Unknown [id number] 2.16.84 0.1.980604.3.579.2.593 1948 Unknown [id number] 2.16.84 0.1.099757.3.579.2.593 1948 Unknown [id number] 2.16.84 0.1.114248.3.579.2.593 1948 Unknown [id number] 2.16.84 0.1.612793.3.579.2.593 1948 Unknown [id number] 2.16.84 0.1.964238.3.579.2.593 1948 Unknown [id number] 2.16.84 0.1.795630.3.579.2.593 1948 Unknown [id number] 2.16.84 0.1.058514.3.579.2.593 1948 Unknown [id number] 2.16.84 0.1.378676.3.579.2.593 1948 Unknown [id number] 2.16.84 0.1.615034.3.579.2.593 1948 Unknown [id number] 2.16.84 0.1.661330.3.579.2.593 1948 Unknown [id number] 2.16.84 0.1.846594.3.579.2.593 1948 Unknown [id number] 2.16.84 0.1.008062.3.579.2.593 1948 Unknown [id number] 2.16.84 0.1.596410.3.579.2.593 1948 Unknown [id number] 2.16.84 0.1.490533.3.579.2.593 1948 Unknown [id number] 2.16.84 0.1.686177.3.579.2.593 1948 Unknown [id number] 2.16.84 0.1.234782.3.579.2.593 1948 Unknown [id number] 2.16.84 0.1.765347.3.579.2.593 1948 Unknown [id number] 2.16.84 0.1.840348.3.579.2.593 1948 Unknown [id number] 2.16.84 0.1.001706.3.579.2.593 1948 Unknown [id number] 2.16.84 0.1.346377.3.579.2.593 1948 Unknown [id number] 2.16.84 0.1.758988.3.579.2.593 1948 Unknown [id number] 2.16.84 0.1.971162.3.579.2.593 1948 Unknown [id number] 2.16.84 0.1.441819.3.579.2.593 1948 Unknown [id number] 2.16.84 0.1.671484.3.579.2.593 1948 Unknown [id number] 2.16.84 0.1.836909.3.579.2.593 1948 Unknown [id number] 2.16.84 0.1.591398.3.579.2.593 1948 Unknown [id number] 2.16.84 0.1.936120.3.579.2.593 1948 Unknown [id number] 2.16.84 0.1.443328.3.579.2.593 1948 Unknown [id number] 2.16. 840.1.757078.3.579.2.196 1948 Unknown [id number] 2.16. 840.1.141348.3.579.2.196 1948 Unknown [id number] 2.16. 840.1.846489.3.579.2.196 1948 Unknown [id number] 2.16. 840.1.093339.3.579.2.196 Unknown [id number] 2.16.84 0.1.763762.3.579.2.593 Unknown [facility] Health Claims [id number] Unknown [id number] 2.16.8 40.1.433257.3.579.2.531 Social History Date Type Detail Facility Sex Assigned At [email or web address] Other Start: 11-07-2021 Tobacco smoking stat us NHIS Never smoked tobacco (finding) [facility] Start: 08-01-2024 Sex Female (finding) [facility] Start: 1950 Sex Assigned At Female [facility] Clinical Notes 04-29-2021 to 05-21-2024 Note Date & Type Note Facility 05-21-2024 Note MD Electrophysiology Consult Note MD Cardiology [facility] Reason for visit: 05/21/24 Pt has [...] with prior history of transferred from an [facility] to [email or web address] following a fall that she sustained. She was noted to be bradycardic and EKG at that time showed her to have bradycardia in the rate of 30s following admission to [facility] [[email or web address]] she was noted to have a first-degree [...] ANGIOGRAM W AND/OR WO IV CONTRAST 04/23/2022 [facility] [[email or web address] CT IMAGING CT CHEST ANGIOGRAM W AND/OR WO IV CONTRAST 04/23/2022 CT CHEST ANGIOGRAM W AND/OR WO IV CONTRAST 04/23/2022 [facility] [[email or web address]] CT IMAGING TONSILLECTOMY SH: Social Determinants of [...] Partner Violence: Unkn (more content not included)... [facility] 10-31-2023 Note MD Electrophysiology Consult Note MD Cardiology [facility] Reason for visit: 10/30/20 Patient here [...] with prior history of transferred from an [facility] to [facility] [[email or web address]] following a fall that she sustained. She was noted to be bradycardic and EKG at that time showed her to have bradycardia in the rate of 30s following admission to [facility] [[email or web address]] she was noted to have a first-degree [...] ANGIOGRAM W AND/OR WO IV CONTRAST 04/23/2022 [facility] [[email or web address]] CT IMAGING CT CHEST ANGIOGRAM W AND/OR WO IV CONTRAST 04/23/2022 CT CHEST ANGIOGRAM W AND/OR WO IV CONTRAST 04/23/2022 [facility] [[email or web address]] CT IMAGING TONSILLECTOMY SH: Social Determinants of [...] on file Intimate Partner Violence: Unknown (08/03/2023) MD Safety & Environment Fear of Current or Ex-Partner: Not on file Emotionally Abused: Not on file Physically Abused: Not on file Sexually Abused: Not on file Physically or Sexually Abused: Not on file Depression: Not on file Housing Stability: Not on file Utilities: Not on file Allergies: Allergies Allergen Reactions House Dust Unknown Pollen Extr (more content not included)... [facility] 03-30-2022 Evaluation note Encounter Date Diagnosis Assessment Notes Mar, Other spondylosis with radiculopathy, lumbar region (ICD-10 - M47.26) [email or web address] Other 10-13-2022 Evaluation note* Encounter Date Diagnosis [...] note writ ten by Summer Molina LPN, Vulnerability Researcher. Edited and approved by Dr. Rancho Chamorro MD. [email or web address] Other 10-05-2022 Evaluation note* Encounter Date Diagnosis Assessment Notes Treatment Notes Treatment Clinical Notes Mar, Other low back pain (ICD-10 - M54.59) [email or web address] Other 07-14-2022 Evaluation note* Encounter Date Diagnosis [...] note writ ten by Mika Villalobos MA, Vulnerability Researcher. Edited and approved by Dr. Rancho Chamorro MD. [email or web address] Other 06-08-2022 Evaluation note* Encounter Date Diagnosis [...] note writ ten by Mika Villalobos MA, Vulnerability Researcher. Edited and approved by Dr. aRncho Chamorro MD. [email or web address] Other 06-08-2022 Evaluation note* Encounter Date Diagnosis [...] four weeks, case discussed with Dr. Diaz [facility] has been contacted and will consult wound care. [email or web address] Other 05-25-2022 Evaluation note* Encounter Date Diagnosis [...] for Keflex BID x 14 days and Spout Spring. Patient and sister instructed to contact office with any signs of infection or significant changes [email or web address] Other 05-19-2022 Evaluation note* Encounter Date Diagnosis [...] note writ ten by Summer Molina LPN, Vulnerability Researcher. Edited and approved by Dr. Rancho Chamorro MD. [email or web address] Other 04-28-2022 Evaluation note* Encounter Date Diagnosis Assessment Notes Treatment Notes Treatment Clinical Notes Sep, Pacemaker (ICD-10 - Z95.0) [email or web address] Other 04-27-2022 Evaluation note* Encounter Date Diagnosis [...] spinal osteoarthritis complication status (ICD-10 - M47.816) [email or web address] Other 03-30-2022 Evaluation note* Encounter Date Diagnosis [...] D. To call with questions or concerns. [email or web address] Other 11-18-2021 NoteMR#: [id number] I [facility] Pt. Name: Linda Nascimento Admitted: 04/21/2021 [...] The patient was subsequently transferred to the [facility] [[email or web address]] for higher level of care. Cardiology and [...] Lozada MD Date Trans: 04/29/2021 12:17 P/roni [id number] cc: Leslie Arroyo M.D. [address] [place] [address]. [employer] [address] [place] [id number] [place] [address] [facility] [id number] HospitalEvaluation noteNo InformationNorth [employer] Other Evaluation noteNo assessment information available [facility] Work Phone: History general Narrative - Reported* Type Description Date Medical History bipolar Medical History Arthritis Medical History high blood pressure Medical History chronic depression Medical History iron deficiency anemia Medical History kidney disease Medical History hyperlipidemia Medical History anxiety Medical History vitamin D deficiency Surgical History tonsillectomy Surgical History laparoscopy Hospitalization History depression [email or web address] Other Summary Purpose Family History No Family History Records Found Relationship Condition Age at Onset Recorded Date/T hilaria Not Specified No pertinent family history Unknown father Unknown mother Malignant neoplasm Unknown Unknown Advance Directives No Advanced Directives Records Found Advance Directive Response Recorded Date/ Time Advance Directives Yes February 1:04pm Chief Complaint and Reason for Visit Chief Complaint Admit Date R76.0 SARCOIDOSIS/OA/MEDS/CKD4 July 31, 2024 9:54am Additional Source Comments INFORMATION SOURCE (unrecogn ized section and content) DATE CREATED AUTHOR 05/30/2021 [facility] DATE CREATED AUTHOR AUTHOR'S ORGANIZ ATION 04/05/2022 [facility] DATE CREATED AUTHOR AUTHOR'S ORGANIZ ATION 10/19/2022 [facility] DATE CREATED AUTHOR AUTHOR'S ORGANIZ ATION 03/27/2023 [place] DATE CREATED AUTHOR AUTHOR'S ORGANIZ ATION 05/10/2024 [facility] DATE CREATED AUTHOR AUTHOR'S ORGANIZ ATION 05/24/2024 [facility] DATE CREATED AUTHOR AUTHOR'S ORGANIZ ATION 08/04/2024 [facility] REASON FOR VISIT (unrecogniz ed section and content) DIRE PAIN IN RT LEG HIP AREA Check right Hip and legNo InformationFOLLOW UP AFTER TRANSFORAMINALRIGHT TRANSFORAMINAL EPIDURAL L4/CJMRI RESULTS PER JAKNo InformationLeft Knee Pain2 WK RECHECK1 MONTH RECHECKNo Information4 MONo Information Care Teams (unrecognized sec tion and content) Team Status: Active Member Role Status Dates Ave Mehta MD Family Provider Active Ave Mehta MD Primary Care Provider Active Team Status: Inactive Member Role Status Dates Ave Mehta MD Primary Care Provider Active Start: July 31, 2024 End: July 31, 2024 Alvaro Ham MD Attending Provider Active St art: July 31, 2024 End: July 31, 2024 Goals (unrecognized section and content) Goals may be documented in a n alternate section FOR RECORDS PERTAINING TO PATIENTS WHO ARE [...] BE BASED ON THE PRIMARY CLINICAL RECORDS. [employer] [facility]. provides no warranty or guarantee of the accuracy or completeness of information in this document.
== END 2024-08-06 10:01 | disposition home or self-care (01) ==
LOC: WC 08-07 10:59
PROVIDERS: PCP Family Medicine; Visit Provider Physician Assistant
DX: I87.312 Chronic venous hypertension (idiopathic) with ulcer of left lower extremity (principal); L97.822 Non-pressure chronic ulcer of other part of left lower leg with fat layer exposed
CPT/HCPCS: 29580

== ENCOUNTER 2024-09-03 10:15 | Outpatient (OUT) | payer MEDICARE, MEDICAID, SELFPAY ==
--- OUTSIDE RECORDS SUMMARY | 2024-09-03 10:38 | XMS_ITS | CCD ---
Author Organization [facility] CliniSyil Care Team Providers Care Circuit Court Clerk Name Role Phone ROBERTA VELA Admitting Unavailable ALEXANDRA LESLIE Referring Unavailable BILLY LOZADA Attending Unavailable AVE MEHTA Primary Care Unavailable uGnnar Fernandez Unavailable [place] Unavailable Emilie Perez [...] LEONIE Attending Unavailable LEONIDES, LEONIE Admitting Unavailable ZIANIRDUH, DR MARINO Braswell Consulting Unavailable HOY ., [...] DR DORADO Primary Care Unavailable TAMLYN ., JMAES Attending Unavailable TAMLYN ., JAMES Admitting Unavailable [...] JANINE ., DR DORADO Primary Care Unavailable [place], DR RISHABH Martin Consulting Unavailable LEÓN DIAS [...] extract; Translations: [HOUSE DUST] Drug Allergy 4 [facility] Repository (1 source) Pollen; Translations: [POLLEN EXTRACTS] Propensity to adverse reactions to drug (disorder) 4 [facility] Medications Current Medications Medication Drug [...] States takes injection/infusion every 6 months at [facility], ordered by Dr. Mehta. 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 [facility] Comment on above: Result Comment: Nega tive <1:80 Borderline 1:80 Positive >1:80 Speckled cytoplasmic fluorescence is present. The antibodies noted in this pattern may be associated with, but not restricted to, primary biliary cirrhosis (PBC), polymyositis and dermatomyositis (PM/DM), and/or systemic lupus erythematosus (SLE). Performed By: #### T 4F, CK, CRP, TSH3, ESR, CBC, CMP #### [facility] [address] [place] [address] [place] #### HBCAB, JUSTINA, HBSAG, ALDOLASE, HCV RX PCR, HBSAB, THYGLOB AB, CHROMATIN, C4, C3, CH50, RPR W RFX, TPO, KERRI #### [facility] , Homogeneous Pattern 1:[address] [facility] Comment on above: Result Comment: ICAP nomenclature: [id number] Performed By: #### T 4F, CK, CRP, TSH3, ESR, CBC, CMP #### [facility] [address] [place] [address] [place] #### HBCAB, JUSTINA, HBSAG, ALDOLASE, HCV RX PCR, HBSAB, THYGLOB AB, CHROMATIN, C4, C3, CH50, RPR W RFX, TPO, KERRI #### [facility] , Note 1 Comment Normal . [facility] Comment on above: Result Comment: Brigid ignacio Potential Disease Association Homogeneous Systemic Lupus Erythematosus, Drug Induced Systemic Lupus Erythematosus, Chronic Autoimmune hepatitis, Juvenile Idiopathic Arthritis Speckled Sjogren Syndrome, Systemic Lupus Erythematosus, Subacute Cutaneous Lupus, Lupus, Congenital Heart Block, Mixed Connective Tissue Disease, Scleroderma-diffuse, Scleroderma-Autoimmune Myositis Overlap Syndrome, Systemic Lupus Epjlirqilkjog-Vkgtxqdgbgs-Yntmnfxkld Myositis Overlap Syndrome, Systemic Autoimmune Rheumatic Disease, [...] Cytopenias, Linear Scleroderma, Antiphospholipid Syndrome Performed at: [facility] [id number] Service Correspondent: Iain Siegel PhD, Phone: [phone] Performed By: #### T 4F, CK, CRP, TSH3, ESR, CBC, CMP #### [address] #### HBCAB, JUSTINA, HBSAG, ALDOLASE, HCV RX PCR, HBSAB, THYGLOB AB, CHROMATIN, C4, C3, CH50, RPR W RFX, TPO, KERRI #### [facility] , Alanine aminotransferase [En zymatic activity/volume] in Serum or PlasmaOrdered By: Alvaro Ham on 07-31-2024 ALT [Catalytic activity/Vol] Alanine aminotransferase [Enzymatic activity/volume] in Serum or Plasma [facility] Albumin [Mass/volume] in Ser um or Plasma by Bromocresol green (BCG) dye binding methoOrdered By: Alvaro Ham on 07-31-2024 Albumin BCG dye [Mass/Vol] Albumin [Mass/volume] in Serum or Plasma by Bromocresol green (BCG) dye binding metho 3.5-5.7 [facility] Aldolaseon 07-31-2024 Aldolase 3.3 U/L Normal 3.3-10.3 [facility] Comment on above: Result Comment: Perf ormed at: [address] [id number] Service Correspondent: Iain Siegel PhD, Phone: [phone] PERFORMED BY: [place] [address] PATHOLOGIST SHOPFITTER SARAHI JUAREZ M.D. Performed By: #### T 4F, CK, CRP, TSH3, ESR, CBC, CMP #### [facility] [address] [place] [address] [place] #### HBCAB, JUSTINA, HBSAG, ALDOLASE, HCV RX PCR, HBSAB, THYGLOB AB, CHROMATIN, C4, C3, CH50, RPR W RFX, TPO, KERRI #### [facility] , Alkaline phosphatase [Enzyma tic activity/volume] in Serum or PlasmaOrdered By: Alvaro Ham on 07-31-2024 ALP [Catalytic activity/Vol] Alkaline phosphatase [Enzymatic activity/volume] in Serum or Plasma 34-104 [facility] Angiotensin Converting Enzym libby 07-31-2024 Angiotensin converting enzyme [Catalytic activity/Vol] 53 U/L Normal 14-82 [facility] Comment on above: Result Comment: Perf ormed at: [facility] [id number] Service Correspondent: Iain Siegel PhD, Phone: [phone] Performed By: #### T 4F, CK, CRP, TSH3, ESR, CBC, CMP #### [facility] [address] [place] [address] [place] #### HBCAB, JUSTINA, HBSAG, ALDOLASE, HCV RX PCR, HBSAB, THYGLOB AB, CHROMATIN, C4, C3, CH50, RPR W RFX, TPO, KERRI #### [facility] , Antithyroglobulin Abon 07-31 Antithyroglobulin Ab <1.0 Normal 0.0-0.9 [facility] Comment on above: Result Comment: Thyr oglobulin Antibody measured by Mara Jeanne Methodology It should be noted that the presence of thyroglobulin antibodies may not be pathogenic nor diagnostic, especially at very low levels. The assay loader operator has found that four percent of individuals without evidence of thyroid disease or autoimmunity will have positive TgAb levels up to 4 IU/mL. Performed at: [facility] [id number] Service Correspondent: Iain Siegel PhD, Phone: [phone] Performed By: #### T 4F, CK, CRP, TSH3, ESR, CBC, CMP #### [facility] [address] [place] [address] [place] #### HBCAB, JUSTINA, HBSAG, ALDOLASE, HCV RX PCR, HBSAB, THYGLOB AB, CHROMATIN, C4, C3, CH50, RPR W RFX, TPO, KERRI #### [facility] , Aspartate aminotransferase [ Enzymatic activity/volume] in Serum or PlasmaOrdered By: Alvaro Ham on 07-31-2024 AST [Catalytic activity/Vol] Aspartate aminotransferase [Enzymatic activity/volume] in Serum or Plasma 13-39 [facility] Basophils Auto (Bld) [#/Vol] Ordered By: Alvaro Ham on 07-31-2024 Basophils (Bld) [#/Vol] Automated basoph il count 0.0-0.2 [facility] Basophils/100 WBC Auto (Bld) Ordered By: Alvaro Ham on 07-31-2024 Basophils/100 WBC (Bld) Automated basophil % . [facility] Bilirubin.total [Mass/volume ] in Serum or PlasmaOrdered By: Alvaro Ham on 07-31-2024 Bilirubin [Mass/Vol] Bilirubin.total [Mass/volume] in Serum or Plasma 0.3-1.0 [facility] C reactive protein [Mass/vol ume] in Serum or PlasmaOrdered By: Alvaro Ham on 07-31-2024 CRP [Mass/Vol] C reactive protein [Mass/volume] in Serum or Plasma High 0.0-0.5 [facility] C-Reactive Proteinon 025 C-Reactive Protein 2.6 mg/dL High 0.0-0.5 [facility] Comment on above: Performed By: #### T 4F, CK, CRP, TSH3, ESR, CBC, CMP #### [facility] [address] [place] [address] [place] #### HBCAB, JUSTINA, HBSAG, ALDOLASE, HCV RX PCR, HBSAB, THYGLOB AB, CHROMATIN, C4, C3, CH50, RPR W RFX, TPO, KERRI #### [facility] , Calcium [Mass/volume] in Ser um or PlasmaOrdered By: Alvaro Ham on 07-31-2024 Calcium [Mass/Vol] Calcium [Mass/volume] in Serum or Plasma 8.6-10.3 [facility] Carbon dioxide, total [Moles /volume] in Serum or PlasmaOrdered By: Alvaro Ham on 07-31-2024 CO2 [Moles/Vol] Carbon dioxide, total [Moles/volume] in Serum or Plasma High 21.0-31.0 [facility] Chloride [Moles/volume] in S anne or PlasmaOrdered By: Alvaro Ham on 07-31-2024 Chloride [Moles/Vol] Chloride [Moles/volume] in Serum or Plasma 98-107 [facility] Chromatin Antibodyon 025 Chromatin Antibody <0.2 Normal 0.0-0.9 [facility] Comment on above: Performed By: #### T 4F, CK, CRP, TSH3, ESR, CBC, CMP #### [facility] [address] [place] [address] [place] #### HBCAB, JUSTINA, HBSAG, ALDOLASE, HCV RX PCR, HBSAB, THYGLOB AB, CHROMATIN, C4, C3, CH50, RPR W RFX, TPO, KERRI #### [facility] , Complement C3on 07-31-2024 Complement C3 189 mg/dL High 82-167 [facility] Comment on above: Result Comment: Perf ormed at: - [facility] [address] [id number] Service Correspondent: Iain Siegel PhD, Phone: [phone] Performed By: #### T 4F, CK, CRP, TSH3, ESR, CBC, CMP #### [facility] [address] [place] [address] [place] #### HBCAB, JUSTINA, HBSAG, ALDOLASE, HCV RX PCR, HBSAB, THYGLOB AB, CHROMATIN, C4, C3, CH50, RPR W RFX, TPO, KERRI #### [facility] , Complement C4on 07-31-2024 Complement C4 36 mg/dL Normal 12-38 [facility] Comment on above: Performed By: #### T 4F, CK, CRP, TSH3, ESR, CBC, CMP #### [place] [address] [place] #### HBCAB, JUSTINA, HBSAG, ALDOLASE, HCV RX PCR, HBSAB, THYGLOB AB, CHROMATIN, C4, C3, CH50, RPR W RFX, TPO, KERRI #### [facility] , Complement Total (CH50)on Complement Total (CH50) >60 Normal >41 [facility] Comment on above: Result Comment: [...] out of range values. Performed at: - [place] [address] Service Correspondent: Iain Siegel PhD, Phone: [phone] PERFORMED BY: [place] [address] PATHOLOGIST SHOPFITTER SARAHI JUAREZ M.D. Performed By: #### T 4F, CK, CRP, TSH3, ESR, CBC, CMP #### [place] [address] [place] #### HBCAB, JUSTINA, HBSAG, ALDOLASE, HCV RX PCR, HBSAB, THYGLOB AB, CHROMATIN, C4, C3, CH50, RPR W RFX, TPO, KERRI #### [facility] , Complete Blood Count Auto Di ffon 07-31-2024 Basophils (Bld) [#/Vol] 0.1 10*3/uL Normal 0.0-0.2 [facility] Comment on above: Performed By: #### T 4F, CK, CRP, TSH3, ESR, CBC, CMP #### [address] #### HBCAB, JUSTINA, HBSAG, ALDOLASE, HCV RX PCR, HBSAB, THYGLOB AB, CHROMATIN, C4, C3, CH50, RPR W RFX, TPO, KERRI #### [facility] , Basophils/100 WBC (Bld) 0.9 % Normal . [facility] Comment on above: Performed By: #### T 4F, CK, CRP, TSH3, ESR, CBC, CMP #### [address] #### HBCAB, JUSTINA, HBSAG, ALDOLASE, HCV RX PCR, HBSAB, THYGLOB AB, CHROMATIN, C4, C3, CH50, RPR W RFX, TPO, KERRI #### [facility] , Eosinophils (Bld) [#/Vol] 0.3 10*3/uL Normal 0.0-0.45 [facility] Comment on above: Performed By: #### T 4F, CK, CRP, TSH3, ESR, CBC, CMP #### [address] #### HBCAB, JUSTINA, HBSAG, ALDOLASE, HCV RX PCR, HBSAB, THYGLOB AB, CHROMATIN, C4, C3, CH50, RPR W RFX, TPO, KERRI #### [facility] , Eosinophils/100 WBC (Bld) 4.4 % Normal . [facility] Comment on above: Performed By: #### T 4F, CK, CRP, TSH3, ESR, CBC, CMP #### [place] [address] [place] #### HBCAB, JUSTINA, HBSAG, ALDOLASE, HCV RX PCR, HBSAB, THYGLOB AB, CHROMATIN, C4, C3, CH50, RPR W RFX, TPO, KERRI #### [facility] , Erythrocyte distribution width (RBC) [Ratio] 15.0 % Normal 11.9-15.3 [facility] Comment on above: Performed By: #### T 4F, CK, CRP, TSH3, ESR, CBC, CMP #### [place] [address] [place] #### HBCAB, JUSTINA, HBSAG, ALDOLASE, HCV RX PCR, HBSAB, THYGLOB AB, CHROMATIN, C4, C3, CH50, RPR W RFX, TPO, KERRI #### [facility] , Hematocrit (Bld) [Volume fraction] 34.5 % Normal 34.0-46.4 [facility] Comment on above: Performed By: #### T 4F, CK, CRP, TSH3, ESR, CBC, CMP #### [place] [address] [place] #### HBCAB, JUSTINA, HBSAG, ALDOLASE, HCV RX PCR, HBSAB, THYGLOB AB, CHROMATIN, C4, C3, CH50, RPR W RFX, TPO, KERRI #### [facility] , Hemoglobin (Bld) [Mass/Vol] 12.0 g/dL Normal 11.8-15.4 [facility] Comment on above: Performed By: #### T 4F, CK, CRP, TSH3, ESR, CBC, CMP #### [place] [address] [place] #### HBCAB, JUSTINA, HBSAG, ALDOLASE, HCV RX PCR, HBSAB, THYGLOB AB, CHROMATIN, C4, C3, CH50, RPR W RFX, TPO, KERRI #### [facility] , Lymphocytes (Bld) [#/Vol] 1.1 10*3/uL Normal 1.00-4.8 [facility] Comment on above: Performed By: #### T 4F, CK, CRP, TSH3, ESR, CBC, CMP #### [place] [address] [place] #### HBCAB, JUSTINA, HBSAG, ALDOLASE, HCV RX PCR, HBSAB, THYGLOB AB, CHROMATIN, C4, C3, CH50, RPR W RFX, TPO, KERRI #### [facility] , Lymphocytes/100 WBC (Bld) 15.8 % Normal . [facility] Comment on above: Performed By: #### T 4F, CK, CRP, TSH3, ESR, CBC, CMP #### [address] #### HBCAB, JUSTINA, HBSAG, ALDOLASE, HCV RX PCR, HBSAB, THYGLOB AB, CHROMATIN, C4, C3, CH50, RPR W RFX, TPO, KERRI #### [facility] , MCH (RBC) [Entitic mass] 36.0 pg High 24.7-34.3 [facility] Comment on above: Performed By: #### T 4F, CK, CRP, TSH3, ESR, CBC, CMP #### [address] #### HBCAB, JUSTINA, HBSAG, ALDOLASE, HCV RX PCR, HBSAB, THYGLOB AB, CHROMATIN, C4, C3, CH50, RPR W RFX, TPO, KERRI #### [facility] , MCV (RBC) [Entitic vol] 103.7 fL High 80-100 [facility] Comment on above: Performed By: #### T 4F, CK, CRP, TSH3, ESR, CBC, CMP #### [address] #### HBCAB, JUSTINA, HBSAG, ALDOLASE, HCV RX PCR, HBSAB, THYGLOB AB, CHROMATIN, C4, C3, CH50, RPR W RFX, TPO, KERRI #### [facility] , Mean Corpuscular HGB Conc 34.7 g/dL Normal 32.0-35.0 [facility] Comment on above: Performed By: #### T 4F, CK, CRP, TSH3, ESR, CBC, CMP #### [place] [address] [place] #### HBCAB, JUSTINA, HBSAG, ALDOLASE, HCV RX PCR, HBSAB, THYGLOB AB, CHROMATIN, C4, C3, CH50, RPR W RFX, TPO, KERRI #### [facility] , Monocytes (Bld) [#/Vol] 0.5 10*3/uL Normal 0.0-0.8 [facility] Comment on above: Performed By: #### T 4F, CK, CRP, TSH3, ESR, CBC, CMP #### [address] #### HBCAB, JUSTINA, HBSAG, ALDOLASE, HCV RX PCR, HBSAB, THYGLOB AB, CHROMATIN, C4, C3, CH50, RPR W RFX, TPO, KERRI #### [facility] , Monocytes/100 WBC (Bld) 7.0 % Normal . [facility] Comment on above: Performed By: #### T 4F, CK, CRP, TSH3, ESR, CBC, CMP #### [address] #### HBCAB, JUSTINA, HBSAG, ALDOLASE, HCV RX PCR, HBSAB, THYGLOB AB, CHROMATIN, C4, C3, CH50, RPR W RFX, TPO, KERRI #### [facility] , Neutrophils (Bld) [#/Vol] 5.2 10*3/uL Normal 1.8-7.7 [facility] Comment on above: Performed By: #### T 4F, CK, CRP, TSH3, ESR, CBC, CMP #### [place] [address] [place] #### HBCAB, JUSTINA, HBSAG, ALDOLASE, HCV RX PCR, HBSAB, THYGLOB AB, CHROMATIN, C4, C3, CH50, RPR W RFX, TPO, KERRI #### [facility] , Neutrophils/100 WBC (Bld) 71.9 % Normal . [facility] Comment on above: Performed By: #### T 4F, CK, CRP, TSH3, ESR, CBC, CMP #### [place] [address] [place] #### HBCAB, JUSTINA, HBSAG, ALDOLASE, HCV RX PCR, HBSAB, THYGLOB AB, CHROMATIN, C4, C3, CH50, RPR W RFX, TPO, KERRI #### [facility] , NRBC% 0.1 /100{WBC} Normal 0-0.5 [facility] Comment on above: Performed By: #### T 4F, CK, CRP, TSH3, ESR, CBC, CMP #### [address] #### HBCAB, JUSTINA, HBSAG, ALDOLASE, HCV RX PCR, HBSAB, THYGLOB AB, CHROMATIN, C4, C3, CH50, RPR W RFX, TPO, KERRI #### [facility] , Platelet mean volume (Bld) [Entitic vol] 7.9 fL Normal 6.3-10.[address] [facility] Comment on above: Performed By: #### T 4F, CK, CRP, TSH3, ESR, CBC, CMP #### [place] [address] [place] #### HBCAB, JUSTINA, HBSAG, ALDOLASE, HCV RX PCR, HBSAB, THYGLOB AB, CHROMATIN, C4, C3, CH50, RPR W RFX, TPO, KERRI #### [facility] , Platelets (Bld) [#/Vol] 204 10*3/uL Normal 150-450 [facility] Comment on above: Performed By: #### T 4F, CK, CRP, TSH3, ESR, CBC, CMP #### [place] [address] [place] #### HBCAB, JUSTINA, HBSAG, ALDOLASE, HCV RX PCR, HBSAB, THYGLOB AB, CHROMATIN, C4, C3, CH50, RPR W RFX, TPO, KERRI #### [facility] , RBC (Bld) [#/Vol] 3.32 10*6/uL Low 3.60-5.[address] [facility] Comment on above: Performed By: #### T 4F, CK, CRP, TSH3, ESR, CBC, CMP #### [place] [address] [place] #### HBCAB, JUSTINA, HBSAG, ALDOLASE, HCV RX PCR, HBSAB, THYGLOB AB, CHROMATIN, C4, C3, CH50, RPR W RFX, TPO, KERRI #### [facility] , WBC (Bld) [#/Vol] 7.2 10*3/uL Normal 3.8-11.6 [facility] Comment on above: Performed By: #### T 4F, CK, CRP, TSH3, ESR, CBC, CMP #### [facility] [address] #### HBCAB, JUSTINA, HBSAG, ALDOLASE, HCV RX PCR, HBSAB, THYGLOB AB, CHROMATIN, C4, C3, CH50, RPR W RFX, TPO, KERRI #### [facility] , Comprehensive Metabolic Pane mahendra 07-31-2024 Albumin [Mass/Vol] 3.7 g/dL Normal 3.5-5.7 [facility] Comment on above: Performed By: #### T 4F, CK, CRP, TSH3, ESR, CBC, CMP #### [place] [address] [place] #### HBCAB, JUSTINA, HBSAG, ALDOLASE, HCV RX PCR, HBSAB, THYGLOB AB, CHROMATIN, C4, C3, CH50, RPR W RFX, TPO, KERRI #### [facility] , Albumin/Globulin [Mass ratio] 1.4 {ratio} Normal [facility] Comment on above: Performed By: #### T 4F, CK, CRP, TSH3, ESR, CBC, CMP #### [facility] [address] [place] [address] [place] #### HBCAB, JUSTINA, HBSAG, ALDOLASE, HCV RX PCR, HBSAB, THYGLOB AB, CHROMATIN, C4, C3, CH50, RPR W RFX, TPO, KERRI #### [facility] , ALP [Catalytic activity/Vol] 94 U/L Normal 34-104 [facility] Comment on above: Performed By: #### T 4F, CK, CRP, TSH3, ESR, CBC, CMP #### [address] #### HBCAB, JUSTINA, HBSAG, ALDOLASE, HCV RX PCR, HBSAB, THYGLOB AB, CHROMATIN, C4, C3, CH50, RPR W RFX, TPO, KERRI #### [facility] , ALT [Catalytic activity/Vol] 10 U/L Normal 7-52 [facility] Comment on above: Performed By: #### T 4F, CK, CRP, TSH3, ESR, CBC, CMP #### [address] #### HBCAB, JUSTINA, HBSAG, ALDOLASE, HCV RX PCR, HBSAB, THYGLOB AB, CHROMATIN, C4, C3, CH50, RPR W RFX, TPO, KERRI #### [facility] , Anion gap [Moles/Vol] 9.2 mmol/L Normal 6.0-15.0 [facility] Comment on above: Performed By: #### T 4F, CK, CRP, TSH3, ESR, CBC, CMP #### [place] [address] [place] #### HBCAB, JUSTINA, HBSAG, ALDOLASE, HCV RX PCR, HBSAB, THYGLOB AB, CHROMATIN, C4, C3, CH50, RPR W RFX, TPO, KERRI #### [facility] , AST [Catalytic activity/Vol] 14 U/L Normal 13-39 [facility] Comment on above: Performed By: #### T 4F, CK, CRP, TSH3, ESR, CBC, CMP #### [place] [address] [place] #### HBCAB, JUSTINA, HBSAG, ALDOLASE, HCV RX PCR, HBSAB, THYGLOB AB, CHROMATIN, C4, C3, CH50, RPR W RFX, TPO, KERRI #### [facility] , Bilirubin [Mass/Vol] 0.5 mg/dL Normal 0.3-1.0 [facility] Comment on above: Performed By: #### T 4F, CK, CRP, TSH3, ESR, CBC, CMP #### [facility] [address] [place] [address] [place] #### HBCAB, JUSTINA, HBSAG, ALDOLASE, HCV RX PCR, HBSAB, THYGLOB AB, CHROMATIN, C4, C3, CH50, RPR W RFX, TPO, KERRI #### [facility] , Calcium [Mass/Vol] 9.2 mg/dL Normal 8.6-10.3 [facility] Comment on above: Performed By: #### T 4F, CK, CRP, TSH3, ESR, CBC, CMP #### [place] [address] [place] #### HBCAB, JUSTINA, HBSAG, ALDOLASE, HCV RX PCR, HBSAB, THYGLOB AB, CHROMATIN, C4, C3, CH50, RPR W RFX, TPO, KERRI #### [facility] , Chloride [Moles/Vol] 102 mmol/L Normal 98-107 [facility] Comment on above: Performed By: #### T 4F, CK, CRP, TSH3, ESR, CBC, CMP #### [place] [address] [place] #### HBCAB, JUSTINA, HBSAG, ALDOLASE, HCV RX PCR, HBSAB, THYGLOB AB, CHROMATIN, C4, C3, CH50, RPR W RFX, TPO, KERRI #### [facility] , CO2 [Moles/Vol] 34.1 mmol/L High 21.0-31.0 The [facility] Comment on above: Performed By: #### T 4F, CK, CRP, TSH3, ESR, CBC, CMP #### [place] [address] [place] #### HBCAB, JUSTINA, HBSAG, ALDOLASE, HCV RX PCR, HBSAB, THYGLOB AB, CHROMATIN, C4, C3, CH50, RPR W RFX, TPO, KERRI #### [facility] , Creatinine [Mass/Vol] 1.42 mg/dL High 0.60-1.20 [facility] Comment on above: Performed By: #### T 4F, CK, CRP, TSH3, ESR, CBC, CMP #### [facility] [address] [place] [address] [place] #### HBCAB, JUSTINA, HBSAG, ALDOLASE, HCV RX PCR, HBSAB, THYGLOB AB, CHROMATIN, C4, C3, CH50, RPR W RFX, TPO, KERRI #### [facility] , Estimated GFR 38.332 mL/Min Normal [facility] Comment on above: Performed By: #### T 4F, CK, CRP, TSH3, ESR, CBC, CMP #### [facility] [address] [place] [address] [place] #### HBCAB, JUSTINA, HBSAG, ALDOLASE, HCV RX PCR, HBSAB, THYGLOB AB, CHROMATIN, C4, C3, CH50, RPR W RFX, TPO, KERRI #### [facility] , Globulin (S) [Mass/Vol] 2.7 g/dL Normal [facility] Comment on above: Performed By: #### T 4F, CK, CRP, TSH3, ESR, CBC, CMP #### [place] [address] [place] #### HBCAB, JUSTINA, HBSAG, ALDOLASE, HCV RX PCR, HBSAB, THYGLOB AB, CHROMATIN, C4, C3, CH50, RPR W RFX, TPO, KERRI #### [facility] , Glucose [Mass/Vol] 95 mg/dL Normal 70-100 [facility] Comment on above: Result Comment: [place] Glucose Reference Range is dependent on time and content of last meal. Glucose of more than 200 mg/dL in a nonstressed, ambulatory subject supports the diagnosis of Diabetes Mellitus. ADA recommended reference range Performed By: #### T 4F, CK, CRP, TSH3, ESR, CBC, CMP #### [place] [address] [place] #### HBCAB, JUSTINA, HBSAG, ALDOLASE, HCV RX PCR, HBSAB, THYGLOB AB, CHROMATIN, C4, C3, CH50, RPR W RFX, TPO, KERRI #### [facility] , Potassium [Moles/Vol] 4.3 mmol/L Normal 3.5-5.1 [facility] Comment on above: Performed By: #### T 4F, CK, CRP, TSH3, ESR, CBC, CMP #### [place] [address] [place] #### HBCAB, JUSTINA, HBSAG, ALDOLASE, HCV RX PCR, HBSAB, THYGLOB AB, CHROMATIN, C4, C3, CH50, RPR W RFX, TPO, KERRI #### [facility] , Protein [Mass/Vol] 6.4 g/dL Normal 6.4-8.9 The [facility] Comment on above: Performed By: #### T 4F, CK, CRP, TSH3, ESR, CBC, CMP #### [place] [address] [place] #### HBCAB, JUSTINA, HBSAG, ALDOLASE, HCV RX PCR, HBSAB, THYGLOB AB, CHROMATIN, C4, C3, CH50, RPR W RFX, TPO, KERRI #### [facility] , Sodium [Moles/Vol] 141 mmol/L Normal 136-145 [facility] Comment on above: Performed By: #### T 4F, CK, CRP, TSH3, ESR, CBC, CMP #### [place] [address] [place] #### HBCAB, JUSTINA, HBSAG, ALDOLASE, HCV RX PCR, HBSAB, THYGLOB AB, CHROMATIN, C4, C3, CH50, RPR W RFX, TPO, KERRI #### [facility] , Urea nitrogen [Mass/Vol] 22 mg/dL Normal 7-25 [facility] Comment on above: Performed By: #### T 4F, CK, CRP, TSH3, ESR, CBC, CMP #### [place] [address] [place] #### HBCAB, JUSTINA, HBSAG, ALDOLASE, HCV RX PCR, HBSAB, THYGLOB AB, CHROMATIN, C4, C3, CH50, RPR W RFX, TPO, KERRI #### [facility] , Creatine Kinaseon 07-31-2024 CK [Catalytic activity/Vol] 23 U/L Low 30-223 [facility] Comment on above: Result Comment: PERF ORMED BY: [place] [id number] PATHOLOGIST SHOPFITTER SARAHI JUAREZ M.D. Performed By: #### T 4F, CK, CRP, TSH3, ESR, CBC, CMP #### [address] #### HBCAB, JUSTINA, HBSAG, ALDOLASE, HCV RX PCR, HBSAB, THYGLOB AB, CHROMATIN, C4, C3, CH50, RPR W RFX, TPO, KERRI #### [facility] , Creatine kinase [Enzymatic a ctivity/volume] in Serum or PlasmaOrdered By: Alvaro Ham on 07-31-2024 CK [Catalytic activity/Vol] Creatine kinase [Enzymatic activity/volume] in Serum or Plasma Low 30-223 [facility] Creatinine [Mass/volume] in Serum or PlasmaOrdered By: Alvaro Ham on 07-31-2024 Creatinine [Mass/Vol] Creatinine [Mass/volume] in Serum or Plasma High 0.60-1.20 [facility] Eosinophils Auto (Bld) [#/Vo l]Ordered By: Alvaro Ham on 07-31-2024 Eosinophils (Bld) [#/Vol] Automated eosinophil count 0.0-0.45 [facility] Eosinophils/100 WBC Auto (Bl d)Ordered By: Alvaro Ham on 07-31-2024 Eosinophils/100 WBC (Bld) Automated eosinophil % . [facility] Erythrocyte Sedimentation Ra chapincito 07-31-2024 ESR (Bld) [Velocity] 58 mm/h High 0-29 [facility] Comment on above: Result Comment: PERF ORMED BY: [address] [address] PATHOLOGIST SHOPFITTER SARAHI JUAREZ M.D. Performed By: #### T 4F, CK, CRP, TSH3, ESR, CBC, CMP #### [place] [address] [place] #### HBCAB, JUSTINA, HBSAG, ALDOLASE, HCV RX PCR, HBSAB, THYGLOB AB, CHROMATIN, C4, C3, CH50, RPR W RFX, TPO, KERRI #### [facility] , Erythrocyte distribution wid th Auto (RBC) [Ratio]Ordered By: Alvaro Ham on 07-31-2024 Erythrocyte distribution width (RBC) [Ratio] Erythrocyte distribution width [Ratio] by Automated count 11.9-15.3 [facility] Erythrocyte sedimentation ra te by Photometric methodOrdered By: Alvaro Ham on 07-31-2024 ESR Photometric method (Bld) [Velocity] Erythrocyte sedimentation rate by Photometric method High 0-29 [facility] Free T4 (Free Thyroxine)on 0 07-31-2024 Free T4 [Mass/Vol] 0.80 ng/dL Normal 0.61-1.12 [facility] Comment on above: Performed By: #### T 4F, CK, CRP, TSH3, ESR, CBC, CMP #### [place] [address] [place] #### HBCAB, JUSTINA, HBSAG, ALDOLASE, HCV RX PCR, HBSAB, THYGLOB AB, CHROMATIN, C4, C3, CH50, RPR W RFX, TPO, KERRI #### [facility] , Globulin Calc (S) [Mass/Vol] Ordered By: lAvaro Ham on 07-31-2024 Globulin (S) [Mass/Vol] Serum globulin measurement by calculation (mass/volume) [facility] Glucose [Mass/volume] in Ser um or PlasmaOrdered By: Alvaro Ham on 07-31-2024 Glucose [Mass/Vol] Glucose [Mass/volume] in Serum or Plasma 70-100 [facility] Comment on above: ADA recommended refe rence rangeRandom Glucose Reference Range is dependent on time and content of last meal. Glucose of more than 200 mg/dL in a nonstressed, ambulatory subject supports the diagnosis of Diabetes Mellitus. Hematocrit Auto (Bld) [Volum e fraction]Ordered By: Alvaro Ham on 07-31-2024 Hematocrit (Bld) [Volume fraction] Hematocrit [Volume Fraction] of Blood by Automated count 34.0-46.4 [facility] Hemoglobin [Mass/volume] in BloodOrdered By: Alvaro Ham on 07-31-2024 Hemoglobin (Bld) [Mass/Vol] Hemoglobin [Mass/volume] in Blood 11.8-15.4 [facility] Hep C Ab wRfx to Qnt PCRon 0 07-31-2024 Hepatitis C Virus Antibody Non-Reactive Normal Non Reactive [facility] Comment on above: Performed By: #### T 4F, CK, CRP, TSH3, ESR, CBC, CMP #### [facility] [address] [place] [address] #### HBCAB, JUSTINA, HBSAG, ALDOLASE, HCV RX PCR, HBSAB, THYGLOB AB, CHROMATIN, C4, C3, CH50, RPR W RFX, TPO, KERRI #### [facility] , Interpretation Hepatitis C Comment Normal . [facility] Comment on above: Result Comment: Not infected with HCV unless early or acute infection is suspected (which may be delayed in an immunocompromised individual), or other evidence exists to indicate HCV infection. Performed By: #### T 4F, CK, CRP, TSH3, ESR, CBC, CMP #### [facility] [address] [place] [address] [place] #### HBCAB, JUSTINA, HBSAG, ALDOLASE, HCV RX PCR, HBSAB, THYGLOB AB, CHROMATIN, C4, C3, CH50, RPR W RFX, TPO, KERRI #### [facility] , Hepatitis B Core Antibodyon 07-31-2024 Hepatitis B Core Antibody Negative Normal Negative [facility] Comment on above: Result Comment: Perf ormed at: CB - [facility] [address] [id number] Service Correspondent: Iain Siegel PhD, Phone: [phone] Performed By: #### T 4F, CK, CRP, TSH3, ESR, CBC, CMP #### [place] [address] [place] #### HBCAB, JUSTINA, HBSAG, ALDOLASE, HCV RX PCR, HBSAB, THYGLOB AB, CHROMATIN, C4, C3, CH50, RPR W RFX, TPO, KERRI #### [facility] , Hepatitis B Surface Antibody on 07-31-2024 Hepatitis B Surface Antibody Non-Reactive Normal . [facility] Comment on above: Result Comment: Non Reactive: Not immune to HBV infection. Equivocal: Unable to determine if anti-HBs is present at levels consistent with immunity. Reactive: Anti-HBs concentration detected at greater than 10 mIU/mL. Individual is considered to be immune to infection with HBV. Performed By: #### T 4F, CK, CRP, TSH3, ESR, CBC, CMP #### [address] #### HBCAB, JUSTINA, HBSAG, ALDOLASE, HCV RX PCR, HBSAB, THYGLOB AB, CHROMATIN, C4, C3, CH50, RPR W RFX, TPO, KERRI #### [facility] , Hepatitis B Surface Antigeno n 07-31-2024 HBsAg Screen Negative Normal Negative [facility] Comment on above: Result Comment: PERF ORMED BY: [place] [address] PATHOLOGIST SHOPFITTER SARAHI JUAREZ M.D. Performed By: #### T 4F, CK, CRP, TSH3, ESR, CBC, CMP #### [address] #### HBCAB, JUSTINA, HBSAG, ALDOLASE, HCV RX PCR, HBSAB, THYGLOB AB, CHROMATIN, C4, C3, CH50, RPR W RFX, TPO, KERRI #### [facility] , Leukocytes [#/volume] correc umang for nucleated erythrocytes in Blood by Automated counOrdered By: Alvaro Ham on 07-31-2024 WBC corrected for nucl RBC Auto (Bld) [#/Vol] Leukocytes [#/volume] corrected for nucleated erythrocytes in Blood by Automated coun 3.8-11.6 [facility] Lymphocytes Auto (Bld) [#/Vo l]Ordered By: Alvaro Ham on 07-31-2024 Lymphocytes (Bld) [#/Vol] Lymphocytes [#/volume] in Blood by Automated count 1.00-4.8 [facility] Lymphocytes/100 WBC Auto (Bl d)Ordered By: Alvaro Ham on 07-31-2024 Lymphocytes/100 WBC (Bld) Lymphocytes/100 leukocytes in Blood by Automated count . [facility] MCH Auto (RBC) [Entitic mass ]Ordered By: Alvaro Ham on 07-31-2024 MCH (RBC) [Entitic mass] MCH [Entitic mass] by Automated count High 24.7-34.3 [facility] MCHC Auto (RBC) [Mass/Vol]Or dered By: Alvaro Ham on 07-31-2024 MCHC (RBC) [Mass/Vol] MCHC [Mass/volume] by Automated count 32.0-35.0 [facility] MCV Auto (RBC) [Entitic vol] Ordered By: Alvaro Ham on 07-31-2024 MCV (RBC) [Entitic vol] MCV [Entitic vol ume] by Automated count High 80-100 [facility] Monocytes Auto (Bld) [#/Vol] Ordered By: Alvaro Ham on 07-31-2024 Monocytes (Bld) [#/Vol] Automated blood monocyte count 0.0-0.8 [facility] Monocytes/100 WBC Auto (Bld) Ordered By: Alvaro Ham on 07-31-2024 Monocytes/100 WBC (Bld) Automated monocyte % . [facility] Neutrophils Auto (Bld) [#/Vo l]Ordered By: Alvaro Ham on 07-31-2024 Neutrophils (Bld) [#/Vol] Neutrophils [#/volume] in Blood by Automated count 1.8-7.7 [facility] Neutrophils/100 WBC Auto (Bl d)Ordered By: Alvaro Ham on 07-31-2024 Neutrophils/100 WBC (Bld) Automated neutrophil % . [facility] No Panel InformationOrdered By: Alvaro Ham on 07-31-2024 Estimated GFR (CKD-EPI) 38.332 mL/Min [facility] Creatinine Clearance (Chem N/A [facility] Nucleated erythrocytes [Pres ence] in Blood by Automated countOrdered By: Alvaro Ham on 07-31-2024 Nucleated RBC Auto Ql (Bld) Nucleated erythrocytes [Presence] in Blood by Automated count 0-0.5 [facility] Platelet mean volume Auto (B ld) [Entitic vol]Ordered By: Alvaro Ham on 07-31-2024 Platelet mean volume (Bld) [Entitic vol] Platelet mean volume [Entitic volume] in Blood by Automated count 6.3-10.7 [facility] Platelets Auto (Bld) [#/Vol] Ordered By: Alvaro Ham on 07-31-2024 Platelets (Bld) [#/Vol] Platelets [#/vol ume] in Blood by Automated count 150-450 [facility] Potassium [Moles/volume] in Serum or PlasmaOrdered By: Alvaro Ham on 07-31-2024 Potassium [Moles/Vol] Potassium [Moles/volume] in Serum or Plasma 3.5-5.1 [facility] Protein [Mass/volume] in Ser um or PlasmaOrdered By: Alvaro Ham on 07-31-2024 Protein [Mass/Vol] Protein [Mass/volume] in Serum or Plasma 6.4-8.9 [facility] RBC Auto (Bld) [#/Vol]Ordere d By: Alvaro Ham on 07-31-2024 RBC (Bld) [#/Vol] Erythrocytes [#/volume] in Blood by Automated count Low 3.60-5.00 [facility] RPR w/rfx to Quant TP Abson 07-31-2024 RPR, Rfx Quant RPR Non-Reactive Normal Non Reactive [facility] Comment on above: Result Comment: Perf ormed at: - [facility] [address] [id number] Service Correspondent: Iain Siegel PhD, Phone: [phone] PERFORMED BY: [address] [place] [address] PATHOLOGIST SHOPFITTER SARAHI JUAREZ M.D. Performed By: #### T 4F, CK, CRP, TSH3, ESR, CBC, CMP #### [place] [address] [place] #### HBCAB, JUSTINA, HBSAG, ALDOLASE, HCV RX PCR, HBSAB, THYGLOB AB, CHROMATIN, C4, C3, CH50, RPR W RFX, TPO, KERRI #### [facility] , Serum or plasma albumin/glob ulin mass ratioOrdered By: Alvaro Ham on 07-31-2024 Albumin/Globulin [Mass ratio] Serum or plasma albumin/globulin mass ratio [facility] Serum or plasma anion gap de terminationOrdered By: Alvaro Ham on 07-31-2024 Anion gap [Moles/Vol] Serum or plasma anion gap determination 6.0-15.0 [facility] Sodium [Moles/volume] in Ser um or PlasmaOrdered By: Alvaro Ham on 07-31-2024 Sodium [Moles/Vol] Sodium [Moles/volume] in Serum or Plasma 136-145 [facility] Thyroid Peroxidase Antibodie son 07-31-2024 Thyroid Peroxidase Antibodies 12 [IU]/mL Normal 0-34 [facility] Comment on above: Result Comment: Perf ormed at: - [facility] [address] [id number] Service Correspondent: Iain Siegel PhD, Phone: [phone] Performed By: #### T 4F, CK, CRP, TSH3, ESR, CBC, CMP #### [place] [address] [place] #### HBCAB, JUSTINA, HBSAG, ALDOLASE, HCV RX PCR, HBSAB, THYGLOB AB, CHROMATIN, C4, C3, CH50, RPR W RFX, TPO, KERRI #### [facility] , Thyroid Stimulating Hormoneo n 07-31-2024 TSH Qn 2.45 m[IU]/L Normal 0.45-5.[address] [facility] Comment on above: Result Comment: PERF ORMED BY: [place] [address] PATHOLOGIST SHOPFITTER SARAHI JUAREZ M.D. Performed By: #### T 4F, CK, CRP, TSH3, ESR, CBC, CMP #### [facility] [address] #### HBCAB, JUSTINA, HBSAG, ALDOLASE, HCV RX PCR, HBSAB, THYGLOB AB, CHROMATIN, C4, C3, CH50, RPR W RFX, TPO, KERRI #### [facility] , Thyrotropin [Units/volume] i n Serum or PlasmaOrdered By: Alvaro Ham on 07-31-2024 TSH Qn Thyrotropin [Units/volume] in Serum or Plasma 0.45-5.33 [facility] Thyroxine (T4) free [Mass/vo lume] in Serum or PlasmaOrdered By: Alvaro Ham on 07-31-2024 Free T4 [Mass/Vol] Thyroxine (T4) free [Mass/volume] in Serum or Plasma 0.61-1.12 [facility] Urea nitrogen [Mass/volume] in Serum or PlasmaOrdered By: Alvaro Ham on 07-31-2024 Urea nitrogen [Mass/Vol] Urea nitrogen [Mass/volume] in Serum or Plasma 7- [facility] WBC Auto (Bld) [#/Vol]Ordere d By: Alvaro Ham on 07-31-2024 WBC (Bld) [#/Vol] Leukocytes [#/volume] in Blood by Automated count 3.8-11.6 [facility] Office Visiton 05-21-2024 Follow-up visit [id number] Linda Nascimento 1950 F Date Provider Department Center 05/21/2024 E[facility]CH [facility]IREZ [facility] Family History Problem Relation Age of Onset Lung cancer Mother Stroke Father Family Status - Relation Status Age at Mother Father Level of Service:76605 [place] OFFICE/OUTPATIENT ESTABLISHED LOW MDM 20 MIN Normal [facility] Herpes Simplex Virus By PCRo n 05-07-2024 HSV 1 Subtype by PCR Not detected Normal [facility] Comment on above: Order Comment: CALL doctor LB474 tel. [phone], FAX [phone] CALL doctor LB474 tel. [phone], FAX [phone] Result Comment: The specimen submitted for testing did not meet [facility] submission guidelines. Testing was performed on a specimen that did not meet validated specimen type requirements. Performance characteristics of this assay may be affected. Interpret results with caution. Please refer to the [employer] Test Directory for information on specimen acceptability: https://www.[employer]/testing Performed By: #### A 0095 #### [facility] [address] [place] [address] HSV 2 Subtype by PCR Not detected Normal [facility] Comment on above: Order Comment: CALL doctor LB474 tel. [phone], FAX [phone] CALL doctor LB474 tel. [phone], FAX [phone] Result Comment: The specimen submitted for testing did not meet [facility] submission guidelines. Testing was performed on a specimen that did not meet validated specimen type requirements. Performance characteristics of this assay may be affected. Interpret results with caution. Please refer to the [employer] Test Directory for information on specimen acceptability: https://www.[employer]/testing INTERPRETIVE INFORMATION: HSV-1 and HSV-2 Subtype by PCR A negative result does not rule out the presence of PCR inhibitors in the patient specimen or test-specific nucleic acid in concentrations below the level of detection by this test. This test was developed and its performance characteristics determined by [facility]. It has not been cleared or approved by the [place] Food and Drug Administration. This test was performed in a CLIA certified laboratory and is intended for clinical purposes. Performed By: [facility] [address] [place] [id number] Band Machine Operator: Rodrigo Milner MD, PhD CLIA Number: [id number] Performed By: #### A 0095 #### [facility] [address] [place] [address] Rejection Notificationon Reason see below Normal [facility] Comment on above: Order Comment: CALL doctor LB474 tel. [phone], FAX [phone] CALL doctor LB474 tel. [phone], FAX [phone] Result Comment: Unab le to perform testing; specimen quantity not sufficient. To perform testing the specimen will need to be recollected. QNS Performed By: #### R EJEC #### [facility] [address] [place] [address] Rejected Test [id number] [facility] Comment on above: Order Comment: CALL doctor LB474 tel. [phone], FAX [phone] CALL doctor LB474 tel. [phone], FAX [phone] Performed By: #### R EJEC #### [facility] [address] [place] [address] [facility] Miscellaneous test 1on 05-03-[id number] [facility] Comment on above: Order Comment: CALL doctor LB474 tel. [phone], FAX [phone] Performed By: #### 9 [id number] #### [facility] [address] [place] [address] Culture, Wound Aerobic, Anae robicon 05-03-2024 Culture, Wound Aerobic, Anaerobic ORDER#: [id number] ORDERED BY: MICHELLE QUINTERO SOURCE: Face Left eye ocular fluid COLLECTED: 05/03/24 07:26 ANTIBIOTICS AT SYLVIA.: RECEIVED : 05/03/24 07:39 [facility]. [phone], FAX [phone] Culture, Wound Aerobic, Anaerobic FINAL 05/08/24 08:22 Direct Exam: NO NEUTROPHILS SEEN Direct Exam: NO ORGANISMS SEEN Cult,Aerobe/Anaerobe : NO GROWTH 5 DAYS Performed at [facility] [address] [place] [id number] ([phone] [facility] Comment on above: Performed By: #### I CWAN #### [facility] [address] [place] [id number] Herpes Simplex Virus By PCRo n 05-03-2024 Herpes Simplex Virus Subtype Source eye Normal [facility] Comment on above: Order Comment: CALL doctor LB474 tel. [phone], FAX [phone] CALL doctor NASIMA tel. [phone], FAX [phone] Result Comment: ocul ar fld Performed By: #### A 0095 #### [facility] [address] [place] [address] Office Visiton 10-31-2023 Follow-up visit [id number] Linda Nascimento Lisa 1950 F Date Provider Department Center 10/31/2023 ENOCH RAMIREZ JU[facility] Family History Problem Relation Age of Onset Lung cancer Mother Stroke Father Family Status - Relation Status Age at Mother Father Level of Service:45453 [place] OFFICE/OUTPATIENT ESTABLISHED MOD MDM 30 MIN [facility] 36on 10-17-2023 36 Let's keep her medications the same. Thanks [facility] 36 Please ask what her current weight is. [facility] 36on 08-01-2023 36 Please confirm [...] 3 times a week. Thanks [facility] 36on 07-27-2023 36 Regarding note from [facility] with patient's weights and BP's and mention [...] Thanks! Printed and faxed back to [facility]. [facility] CBC AUTO DIFFon 05-05-2023 BASO # 0.1 103/ul Normal 0.0-0.1 [facility] Comment on above: Performed By: #### C BC ####[facility] [address] [place] [address]Dr. Slick Broderick Basophils/100 WBC (Bld) 0.6 % Normal 0.2-2.0 [facility] Comment on above: Performed By: #### C BC ####[facility] [address] [place], [place] [address]Dr. Slick Broderick EO # 0.4 103/ul Normal 0.0-0.7 [facility] Comment on above: Performed By: #### C BC ####[facility] [address] [place], [place] [address]Dr. Slick Broderick Eosinophils/100 WBC (Bld) 3.9 % Normal 0.9-7.0 [facility] Comment on above: Performed By: #### C BC ####[facility] [address] [place], [place] [address]Dr. Slick Broderick Erythrocyte distribution width (RBC) [Ratio] 13.2 % Normal 11.0-15.0 [facility] Comment on above: Performed By: #### C BC ####[facility] [address] [place], [place] [address]Dr. Slick Broderick Hematocrit (Bld) [Volume fraction] 32.4 % Critically low 36.0-48.0 [facility] Comment on above: Performed By: #### C BC ####[facility] [address] [place], [place] [address]Dr. Slick Broderick Hemoglobin (Bld) [Mass/Vol] 10.4 g/dL Critically low 12.0-16.0 [facility] Comment on above: Performed By: #### C BC ####[facility] [address] [place], [place] [address]Dr. Slick Broderick IG # 0.19 10e3/ul Critically high 0.00-0.03 [facility] Comment on above: Performed By: #### C BC ####[facility] [address] [place], [place] [address]Dr. Slick Broderick IG % 2.1 % Critically high 0.0-0.5 [facility] Comment on above: Performed By: #### C BC ####[facility] [address] [place] [address]DrEmma Broderick LYMPH # 1.0 103/ul Critically low 1.2-3.8 [facility] Comment on above: Performed By: #### C BC ####[facility] [address] [place] [address]DrEmma Broderick Lymphocytes/100 WBC (Bld) 11.4 % Critically low 20.5-60.0 [facility] Comment on above: Performed By: #### C BC ####[facility] [address] [place] [address]DrEmma Broderick MANUAL DIFF REQ NO Normal [facility] Comment on above: Performed By: #### C BC ####[facility] [address] [place] [address]DrEmma Slick Davie MCH (RBC) [Entitic mass] 32.0 pg Normal 26.7-34.0 [facility] Comment on above: Performed By: #### C BC ####[facility] [address] [place], [place] [address]DrEmma Slick Davie MCHC (RBC) [Mass/Vol] 32.1 g/dL Normal 29.9-35.2 [facility] Comment on above: Performed By: #### C BC ####[facility] [address] [place] [address]DrEmma Broderick MCV (RBC) [Entitic vol] 99.7 fL Critically high 81.0-99 .0 [facility] Comment on above: Performed By: #### C BC ####[facility] [address] [place] [address]DrEmma Broderick MONO # 1.0 103/ul Critically high 0.3-0.8 [facility] Comment on above: Performed By: #### C BC ####[facility] [address] [place], [place] [address]Dr. Slick Broderick Monocytes/100 WBC (Bld) 10.8 % Normal 1.7-12.0 [facility] Comment on above: Performed By: #### C BC ####[facility] [address] [place] [address]Dr. Slick Broderick NEUT # 6.4 103/ul Normal 1.4-6.5 [facility] Comment on above: Performed By: #### C BC ####[facility] [address] [place] [address]Dr. Slick Broderick Neutrophils/100 WBC (Bld) 71.2 % Normal 43.0-75.0 [facility] Comment on above: Performed By: #### C BC ####[facility] [address] [place] [address]Dr. Slick Davie Platelet mean volume (Bld) [Entitic vol] 9.8 fL Normal 9.5-13.5 [facility] Comment on above: Performed By: #### C BC ####[facility] [address] [place] [address]Dr. Slick Davie PLT 174 103/ul Normal 150-450 [facility] Comment on above: Performed By: #### C BC ####[facility] [address] [place], [place] [address]Dr. Slick Davie RBC 3.25 106/ul Critically low 4.20-5.40 [facility] Comment on above: Performed By: #### C BC ####[facility] [address] [place], [place] [address]Dr. Slick Broderick WBC 8.9 103/ul Normal 4.0-11.0 [facility] Comment on above: Performed By: #### C BC ####[facility] [address] [place] [address]Dr. Slick Davie CRPon 10-14-2022 CRP 0.5 mg/dL Normal <=1.0 [facility] Comment on above: Performed By: #### C RP, BMP ####[facility] [address] [place], [place] [address]Dr. Slick Broderick D-DIMERon 10-14-2022 D-DIMER 0.86 mg/L FEU Critically high <=0.59 [facility] Comment on above: Performed By: #### D DIM ####[facility] [address] [place], [place] [address]DrEmma Broderick D-DIMER COMMENTS SEE BELOW Normal [facility] Comment on above: Result Comment: [...] generalized hospitalization. Performed By: #### D DIM ####[facility] [address] [place], [place] [address]Dr. Slick Broderick PROF CHEM 8 (BAS METB)on Anion gap [Moles/Vol] 10.1 mmol/L Normal [facility] Comment on above: Performed By: #### C RP, BMP ####[facility] [address] [address] [place], [place] [address]Dr. Slick Broderick Calcium [Mass/Vol] 9.3 mg/dL Normal 8.5-10.1 [facility] Comment on above: Performed By: #### C RP, BMP ####[facility] Hwcafbajcg[address] [place], [place] [address]Dr. Slick Broderick Chloride [Moles/Vol] 98 mmol/L Normal 98-107 [facility] Comment on above: Performed By: #### C RP, BMP ####[facility] Plloopsihm[address] [place], [place] [address]Dr. Slick Broderick CO2 [Moles/Vol] 30.3 mmol/L Normal 21.0-32.0 [facility] Comment on above: Performed By: #### C RP, BMP ####[facility] Oxcjqxmlgl[address] [place], [place] [address]Dr. Slick Broderick Creatinine [Mass/Vol] 2.15 mg/dL Critically high 0.55-1.02 [facility] Comment on above: Performed By: #### C RP, BMP ####[facility] [address] [place] [address]Dr. Slick Broderick EGFR-AF IVORIAN 27 mL/min/1.73m2 Critically low >=60 [facility] Comment on above: Performed By: #### C RP, BMP ####[facility] [address]kn[address]xdttf[address] [place] [address]Dr. Slick Broderick EGFR-NON AF IVORIAN 22 mL/min/1.73m2 Critically low >=60 [facility] Comment on above: Performed By: #### C RP, BMP ####[facility] Oeoqwz[address] [place], [place] [address]Dr. Slick Broderick Glucose [Mass/Vol] 116 mg/dL Critically high 74-106 [facility] Comment on above: Performed By: #### C RP, BMP ####[facility] Ygxgrnsvqp[address] [place], [place] [address]Dr. Slick Broderick Potassium [Moles/Vol] 4.4 mmol/L Normal 3.5-5.1 [facility] Comment on above: Performed By: #### C RP, BMP ####[facility] Xeujefqd[address] [place], [place] [address]Dr. Slick Broderick Sodium [Moles/Vol] 134 mmol/L Critically low 136-145 [facility] Comment on above: Performed By: #### C RP, BMP ####[facility] Dslkewipnj[address] [place], [place] [address]Dr. Slick Broderick Urea nitrogen [Mass/Vol] 33.0 mg/dL Critically high 7.0-18.0 [facility] Comment on above: Performed By: #### C RP, BMP ####[facility] [address] [place] [address]Dr. Slick Broderick Urea nitrogen/Creatinine [Mass ratio] 15.3 mg/mg Normal [facility] Comment on above: Performed By: #### C RP, BMP ####[facility] [address]yq[address] [place] [address]Dr. Slick Broderick US JENNY DOP LEG LTon 10-15-19 23 US JENNY DOP LEG LT Normal [facility] XR FEMUR LTon 10-14-2022 XR FEMUR LT Normal [facility] ECHOCARDIO M/2D COMPLETEon 0 09-14-2022 ECHOCARDIO M/2D COMPLETE Normal [facility] PRBC LEUKOREDUCEDon 06-09-20 22 PRBC LEUKOREDUCED Normal [facility] Comment on above: Performed By: #### P RBC ####[facility] [address]se[address] [place] [address]Dr. Slick Broderick BNPon 04-23-2022 Natriuretic peptide B (Bld) [Mass/Vol] 51273.0 pg/mL Critically high <=900.0 [facility] Comment on above: Performed By: #### C MP, CMADM, BNP ####[facility] [address] [place] [address]Dr. Slick Broderick CARDIAC REYMUNDO ADMITon 022 CK [Catalytic activity/Vol] 121 U/L Normal 26-192 [facility] Comment on above: Performed By: #### C MP, CMADM, BNP ####[facility] Ngux[address]tymi[address] [place] [address]Dr. Slick Broderick CK.MB [Mass/Vol] 5.67 ng/mL Critically high <=3.60 [facility] Comment on above: Performed By: #### C MP, CMADM, BNP ####[facility] Acvi[address]zqrhz[address] [place] [address]Dr. Slick Broderick HSTROP 3667.9 pg/mL Critically high 4.0-51.3 [facility] Comment on above: Result Comment: CUT- OFF POINTS HAVE BEEN ESTABLISHED BASED ON THE FOURTH UNIVERSAL DEFINITIONS OF MYOCARDIALINFARCTION. THE UPPER REFERENCE LIMIT (URL) OF TROPONIN, DEFINED THE 99TH PERCENTILE OFcTnI DISTRIBUTION IN A REFERENCE POPULATION, HAS BEEN CONFIRMED THE DECISION THRESHOLDFOR [place] DIAGNOSIS. Performed By: #### C MP, CMADM, BNP ####[facility] T[address]lclzjq[address] [place] [address]Dr. Slick Broderick NEHEMIAH 225 ng/mL Critically high 9-82 [facility] Comment on above: Performed By: #### C MP, CMADM, BNP ####[facility] Vreivqzahg[address] [place] [address]Dr. Slick Broderick CBC AUTO DIFFon 04-23-2022 BASO # 0.0 103/ul Normal 0.0-0.1 [facility] Comment on above: Performed By: #### C BC ####[facility] Qunwklstjj06[address] [place] [address]Dr. Slick Broderick Basophils/100 WBC (Bld) 0.3 % Normal 0.2-2.0 [facility] Comment on above: Performed By: #### C BC ####[facility] Qdkgufqdsr[address] [place], [place] [address]Dr. Slick Broderick EO # 0.0 103/ul Normal 0.0-0.7 [facility] Comment on above: Performed By: #### C BC ####[facility] Xjagleybbt[address] [place] [address]Dr. Slick Broderick Eosinophils/100 WBC (Bld) 0.3 % Critically low 0.9-7.0 [facility] Comment on above: Performed By: #### C BC ####[facility] Pptzechajm[address] [place], [place] [address]Dr. Slick Broderick Erythrocyte distribution width (RBC) [Ratio] 14.0 % Normal 11.0-15.0 [facility] Comment on above: Performed By: #### C BC ####[facility] Jesnhuwmmu[address] [place], [place] [address]Dr. Slick Broderick Hematocrit (Bld) [Volume fraction] 21.9 % Critically low 36.0-48.0 [facility] Comment on above: Performed By: #### C BC ####[facility] Ibuhyzyiah[address] [place], [place] [address]Dr. Slick Broderick Hemoglobin (Bld) [Mass/Vol] 7.1 g/dL Critically low 12.0-16.0 [facility] Comment on above: Performed By: #### C BC ####[facility] [address]xylxzyl[address] [place] [id number]. Slick Broderick IG # 0.04 10e3/ul Critically high 0.00-0.03 [facility] Comment on above: Performed By: #### C BC ####[facility] W[address]raob[address] [place] [id number]. Slick Broderick IG % 0.4 % Normal 0.0-0.5 [facility] Comment on above: Performed By: #### C BC ####[facility] Kjjleikzvl4[address] [place] [address]Dr. Slick Broderick LYMPH # 0.8 103/ul Critically low 1.2-3.8 [facility] Comment on above: Performed By: #### C BC ####[facility] Xgdlxygxxa[address] [place] [address]Dr. Slick Broderick Lymphocytes/100 WBC (Bld) 7.7 % Critically low 20.5-60.0 [facility] Comment on above: Performed By: #### C BC ####[facility] U[address]jiyd[address] [place] [address]Dr. Slick Broderick MANUAL DIFF REQ NO Normal [facility] Comment on above: Performed By: #### C BC ####[facility] [address]zjcjlswbp[address] [place] [address]Dr. Slick Broderick MCH (RBC) [Entitic mass] 29.3 pg Normal 26.7-34.0 [facility] Comment on above: Performed By: #### C BC ####[facility] [address]bk[address] [place] [address]Dr. Slick Broderick MCHC (RBC) [Mass/Vol] 32.4 g/dL Normal 29.9-35.2 [facility] Comment on above: Performed By: #### C BC ####[facility] A[address]tsuaj[address] [place] [address]Dr. Slick Davie MCV (RBC) [Entitic vol] 90.5 fL Normal 81.0-99.0 [facility] Comment on above: Performed By: #### C BC ####[facility] [address]xwtmoxtot40[address] [place] [id number]. Slick Broderick MONO # 1.0 103/ul Critically high 0.3-0.8 [facility] Comment on above: Performed By: #### C BC ####[facility] Fhghunlaja48[address] [place] [id number]. Slick Broderick Monocytes/100 WBC (Bld) 9.6 % Normal 1.7-12.0 [facility] Comment on above: Performed By: #### C BC ####[facility] Lxnboydevo28[address] [place] [id number]. Slick Broderick NEUT # 8.6 103/ul Critically high 1.4-6.5 [facility] Comment on above: Performed By: #### C BC ####[facility] Asjdwqmwjd[address] [place] [address]Dr. Slick Broderick Neutrophils/100 WBC (Bld) 81.7 % Critically high 43.0-75.0 [facility] Comment on above: Performed By: #### C BC ####[facility] Fosvpbzcov7[address] [place] [id number]. Slick Broderick Platelet mean volume (Bld) [Entitic vol] 10.0 fL Normal 9.5-13.5 [facility] Comment on above: Performed By: #### C BC ####[facility] [address]qshhsn30[address] [place] [id number]. Slick Broderick PLT 195 103/ul Normal 150-450 [facility] Comment on above: Performed By: #### C BC ####[facility] Nefnwjjwij5[address] [place] [id number]. Slick Broderick RBC 2.42 106/ul Critically low 4.20-5.40 [facility] Comment on above: Performed By: #### C BC ####[facility] Pr[address]ervaas[address] [place] [id number]. Slick Broderick WBC 10.5 103/ul Normal 4.0-11.0 [facility] Comment on above: Performed By: #### C BC ####[facility] Bjouqiedbg[address] [place] [id number]. Slick Broderick CT HEAD WO CONon 04-23-2022 CT HEAD WO CON Normal [facility] CULTURE BLOODon 04-23-2022 Microscopic examination of blood, culture Culture Observations: NO GROWTH AT 5 DAYS. Normal [facility] Comment on above: Performed By: #### B LDCX2 ####[facility] Wtiuvlqnvm[address] [place] [id number]. Slick Broderick Microscopic examination of blood, culture Culture Observations: NO GROWTH AT 5 DAYS. Normal [facility] Comment on above: Performed By: #### B LDCX1 ####[facility] Rfjjbfoemy[address] [place] [address]Dr. Slick Broderick Covid-19 PCR (CVDTBH)on 04-12 SARS-CoV-2 (COVID-19) RNA DONNIE+probe Ql (Unsp spec) Not detected Normal NOT DETECTED [facility] Comment on above: Result Comment: [...] for this test is supported by the Double Cut Off Saw Operator of Health and Human Service's declaration that [...] be used). Performed By: #### C VDTBH ####[facility] Ddomdyhtbf6134 [place] [id number]. Slick Broderick LACTATE/LACTIC ACIDon 2021 Lactate [Moles/Vol] 1.2 mmol/L Normal 0.4-1.9 [facility] Comment on above: Performed By: #### L ACT ####[facility] Mslodqztvm[address] [place] [address]Dr. Slick Broderick PROF 14(COMP METB)on 022 Albumin [Mass/Vol] 2.9 g/dL Critically low 3.4-5.0 [facility] Comment on above: Performed By: #### C MP, CMADM, BNP ####[facility] S[address]apptjvl65[address] [place] [address]Dr. Slick Broderick Albumin/Globulin [Mass ratio] 0.9 {ratio} Normal [facility] Comment on above: Performed By: #### C MP, CMADM, BNP ####[facility] Mpscxwpxrl[address] [place], [place] [address]Dr. Slick Broderick ALP [Catalytic activity/Vol] 88 U/L Normal 46-116 [facility] Comment on above: Performed By: #### C MP, CMADM, BNP ####[facility] Bejisuuffv[address] [place], [place] [address]Dr. Slick Broderick ALT [Catalytic activity/Vol] 22 U/L Normal 14-59 [facility] Comment on above: Performed By: #### C MP, CMADM, BNP ####[facility] Plcviwqlib[address] [place], [place] [address]Dr. Slick Broderick Anion gap [Moles/Vol] 14.0 mmol/L Normal [facility] Comment on above: Performed By: #### C MP, CMADM, BNP ####[facility] Kfsdaaexrf35[address] [place] [address]Dr. Slick Broderick AST [Catalytic activity/Vol] 26 U/L Normal 15-37 [facility] Comment on above: Performed By: #### C MP, CMADM, BNP ####[facility] Uinjhbkrqt[address] [place], [place] [address]Dr. Slick Broderick Bilirubin [Mass/Vol] 0.5 mg/dL Normal 0.2-1.0 [facility] Comment on above: Performed By: #### C MP, CMADM, BNP ####[facility] Trhdiywmvd[address] [place], [place] [address]Dr. Slick Broderick Calcium [Mass/Vol] 9.7 mg/dL Normal 8.5-10.1 [facility] Comment on above: Performed By: #### C MP, CMADM, BNP ####[facility] Jhrxwmhtmg[address] [place] [address]Dr. Slick Broderick Chloride [Moles/Vol] 105 mmol/L Normal 98-107 [facility] Comment on above: Performed By: #### C MP, CMADM, BNP ####[facility] Scfkvgyfmr62[address] [place] [address]Dr. Slick Broderick CO2 [Moles/Vol] 27.0 mmol/L Normal 21.0-32.0 [facility] Comment on above: Performed By: #### C MP, CMADM, BNP ####[facility] Jqbqqwxyhw18[address] [place] [address]Dr. Slick Broderick Creatinine [Mass/Vol] 1.57 mg/dL Critically high 0.55-1.02 [facility] Comment on above: Performed By: #### C MP, CMADM, BNP ####[facility] Iqzddafnlw[address] [place] [address]Dr. Slick Broderick EGFR-AF IVORIAN 39 mL/min/1.73m2 Critically low >=60 [facility] Comment on above: Performed By: #### C MP, CMADM, BNP ####[facility] Jjhteactvb[address] [place] [address]Dr. Slick Broderick EGFR-NON AF IVORIAN 32 mL/min/1.73m2 Critically low >=60 [facility] Comment on above: Performed By: #### C MP, CMADM, BNP ####[facility] Ndoqzvgzig4[address] [place] [address]Dr. Slick Broderick Globulin (S) [Mass/Vol] 3.2 g/dL Normal [facility] Comment on above: Performed By: #### C MP, CMADM, BNP ####[facility] Bvrtdfznot[address] [place] [address]Dr. Slick Broderick Glucose [Mass/Vol] 128 mg/dL Critically high 74-106 T [facility] Comment on above: Performed By: #### C MP, CMADM, BNP ####[facility] Dxnjeuatoj[address] [place] [address]Dr. Slick Broderick Potassium [Moles/Vol] 4.0 mmol/L Normal 3.5-5.1 [facility] Comment on above: Performed By: #### C MP, CMADM, BNP ####[facility] Rpqoejgwlf55[address] [place] [address]Dr. Slick Broderick Protein [Mass/Vol] 6.1 g/dL Critically low 6.4-8.2 [facility] Comment on above: Performed By: #### C MP, CMADM, BNP ####[facility] Kiystpeafo[address] [place] [address]Dr. Slick Broderick Sodium [Moles/Vol] 142 mmol/L Normal 136-145 [facility] Comment on above: Performed By: #### C MP, CMADM, BNP ####[facility] Hamsrlbzkm49[address] [place] [address]Dr. Slick Broderick Urea nitrogen [Mass/Vol] 34.0 mg/dL Critically high 7.0-18.0 [facility] Comment on above: Performed By: #### C MP, CMADM, BNP ####[facility] Ojnvbetisi[address] [place] [address]Dr. Slick Broderick Urea nitrogen/Creatinine [Mass ratio] 21.7 mg/mg Normal [facility] Comment on above: Performed By: #### C MP, CMADM, BNP ####[facility] Jewcyuudfl[address] [place] [address]Dr. Slick Broderick PROTIMEon 04-23-2022 INR Coag (PPP) [Relative time] 1.10 {INR} Normal [facility] Comment on above: Performed By: #### P T, PTT ####[facility] Nkevcfefug[address] [place], [place] [address]Dr. Slick Broderick INR GUIDELINES SEE BELOW Normal [facility] Comment on above: Result Comment: EDMUND RED INR: 2.0 - 3.0 CONDITIONS NOT LISTED BELOW 2.5 - 3.5 FOR PROSTHETIC HEART VALVE REPLACEMENT 2.5 - 3.5 RECURRENT THROMBOSIS Performed By: #### P T, PTT ####[facility] Ohpgikfwfn5[address] [place] [address]Dr. Slick Broderick PT Coag (PPP) [Time] 11.8 s Critically high 9.0-11.6 [facility] Comment on above: Performed By: #### P T, PTT ####[facility] Zynpiwnrih[address] [place], [place] [address]Dr. Slick Broderick PTTon 04-23-2022 aPTT Coag (Bld) [Time] 27.7 s Normal 22.3-36.2 Th e [facility] Comment on above: Performed By: #### P T, PTT ####[facility] Tbxgqkvcji[address] [place], [place] [address]Dr. Slick Davie TYPE AND SCREENon 04-23-2022 TYPE AND SCREEN Negative Normal [facility] Comment on above: Performed By: #### T NS ####[facility] Qopehiwgen[address] [place], [place] [address]Dr. Slick Davie XR CHEST 1 Von 04-23-2022 XR CHEST 1 V Normal [facility] CBC AUTO DIFFon 04-22-2022 BASO # 0.0 103/ul Normal 0.0-0.1 [facility] Comment on above: Performed By: #### C BC ####[facility] Vgluuuktec[address] [place], [place] [address]Dr. Slick Broderick Basophils/100 WBC (Bld) 0.3 % Normal 0.2-2.0 [facility] Comment on above: Performed By: #### C BC ####[facility] Aoknlcsyuc24[address] [place] [address]Dr. Slick Broderick EO # 0.1 103/ul Normal 0.0-0.7 [facility] Comment on above: Performed By: #### C BC ####[facility] Tauveogafu[address] [place], [place] [address]Dr. Slick Broderick Eosinophils/100 WBC (Bld) 1.4 % Normal 0.9-7.0 [facility] Comment on above: Performed By: #### C BC ####[facility] Privchuuem34[address] [place] [address]Dr. Slick Broderick Erythrocyte distribution width (RBC) [Ratio] 13.8 % Normal 11.0-15.0 [facility] Comment on above: Performed By: #### C BC ####[facility] Vcxlaiyezo18[address] [place] [address]Dr. Slick Broderick Hematocrit (Bld) [Volume fraction] 27.4 % Critically low 36.0-48.0 [facility] Comment on above: Performed By: #### C BC ####[facility] Bfeefbhtpw3414 [place] [address]Dr. Slick Broderick Hemoglobin (Bld) [Mass/Vol] 8.8 g/dL Critically low 12.0-16.0 [facility] Comment on above: Performed By: #### C BC ####[facility] Wkfwmanlma[address] [place], [place] [address]Dr. Slick Broderick IG # 0.04 10e3/ul Critically high 0.00-0.03 [facility] Comment on above: Performed By: #### C BC ####[facility] Oomaztwgkf[address] [place], [place] [address]Dr. Slick Broderick IG % 0.6 % Critically high 0.0-0.5 [facility] Comment on above: Performed By: #### C BC ####[facility] Lbgjtmngxi[address] [place], [place] [address]DrEmma Slick Broderick LYMPH # 0.7 103/ul Critically low 1.2-3.8 [facility] Comment on above: Performed By: #### C BC ####[facility] Wmjsfbetah15[address] [place] [address]DrEmma Slick Broderick Lymphocytes/100 WBC (Bld) 9.8 % Critically low 20.5-60.0 [facility] Comment on above: Performed By: #### C BC ####[facility] Y[address]wjfpx[address] [place] [address]DrEmma Slick Davie MANUAL DIFF REQ NO Normal [facility] Comment on above: Performed By: #### C BC ####[facility] Peoeonjzuc216[address] [place] [id number]. Slick Davie MCH (RBC) [Entitic mass] 28.9 pg Normal 26.7-34.0 [facility] Comment on above: Performed By: #### C BC ####[facility] Mdpjvsbnju4753 [place] [address]Dr. Slick Broderick MCHC (RBC) [Mass/Vol] 32.1 g/dL Normal 29.9-35.2 [facility] Comment on above: Performed By: #### C BC ####[facility] Osequatvfh4040 [place] [address]DrEmma Broderick MCV (RBC) [Entitic vol] 90.1 fL Normal 81.0-99.0 [facility] Comment on above: Performed By: #### C BC ####[facility] Yibqtwzcnj[address] [place], [place] [address]DrEmma Broderick MONO # 0.6 103/ul Normal 0.3-0.8 [facility] Comment on above: Performed By: #### C BC ####[facility] Ottlccderl[address] [place], [place] [address]DrEmma Broderick Monocytes/100 WBC (Bld) 7.6 % Normal 1.7-12.0 [facility] Comment on above: Performed By: #### C BC ####[facility] Gxyzugzfuv[address] [place], [place] [address]DrEmma Broderick NEUT # 5.9 103/ul Normal 1.4-6.5 [facility] Comment on above: Performed By: #### C BC ####[facility] Tjwdlblpar[address] [place], [place] [address]DrEmma Broderick Neutrophils/100 WBC (Bld) 80.3 % Critically high 43.0-75.0 [facility] Comment on above: Performed By: #### C BC ####[facility] Awqxaqyyaz[address] [place], [place] [address]DrEmma Broderick Platelet mean volume (Bld) [Entitic vol] 9.5 fL Normal 9.5-13.5 [facility] Comment on above: Performed By: #### C BC ####[facility] Jrpqjtwijq9921 [place] [id number]. Slick Broderick PLT 204 103/ul Normal 150-450 [facility] Comment on above: Performed By: #### C BC ####[facility] Priivbmgbi1769 [place] [id number]. Slick Broderick RBC 3.04 106/ul Critically low 4.20-5.40 [facility] Comment on above: Performed By: #### C BC ####[facility] Tczijxiyak6281 [place] [id number]. Slick Broderick WBC 7.3 103/ul Normal 4.0-11.0 [facility] Comment on above: Performed By: #### C BC ####[facility] Fsrbcxnkwe17[address] [place] [address]Dr. Slick Broderick BASO # 0.0 103/ul Normal 0.0-0.1 [facility] Comment on above: Performed By: #### C BC ####[facility] Xsoksoovrv6368 [place] [address]Dr. Slick Broderick Basophils/100 WBC (Bld) 0.5 % Normal 0.2-2.0 [facility] Comment on above: Performed By: #### C BC ####[facility] Uxwmaarhua59[address] [place] [address]Dr. Slick Broderick EO # 0.6 103/ul Normal 0.0-0.7 [facility] Comment on above: Performed By: #### C BC ####[facility] Z[address]vare[address] [place], [place] [id number]. Slick Broderick Eosinophils/100 WBC (Bld) 10.4 % Critically high 0.9-7.0 [facility] Comment on above: Performed By: #### C BC ####[facility] [facility] [address]prwr[address] [place] [address]Dr. Slick Broderick Erythrocyte distribution width (RBC) [Ratio] 14.0 % Normal 11.0-15.0 [facility] Comment on above: Performed By: #### C BC ####[facility] Xbjoygltbk83[address] [place] [address]Dr. Slick Davie Hematocrit (Bld) [Volume fraction] 26.5 % Critically low 36.0-48.0 [facility] Comment on above: Performed By: #### C BC ####[facility] Bemzpookad[address] [place] [address]Dr. Slick Broderick Hemoglobin (Bld) [Mass/Vol] 8.4 g/dL Critically low 12.0-16.0 [facility] Comment on above: Performed By: #### C BC ####[facility] Tvcobltcew[address] [place], [place] [address]DrEmma Broderick IG # 0.02 10e3/ul Normal 0.00-0.03 [facility] Comment on above: Performed By: #### C BC ####[facility] Vybgasiszu[address] [place], [place] [address]Dr. Slick Broderick IG % 0.4 % Normal 0.0-0.5 [facility] Comment on above: Performed By: #### C BC ####[facility] Qjpdfjcukn366[address] [place], [place] [address]DrEmma Broderick LYMPH # 0.9 103/ul Critically low 1.2-3.8 [facility] Comment on above: Performed By: #### C BC ####[facility] Ndgnqassyb[address] [place], [place] [address]DrEmma Broderick Lymphocytes/100 WBC (Bld) 15.6 % Critically low 20.5-60.0 [facility] Comment on above: Performed By: #### C BC ####[facility] Uooixycits[address] [place], [place] [address]DrEmma Broderick MANUAL DIFF REQ NO Normal [facility] Comment on above: Performed By: #### C BC ####[facility] Zoipdafkwj3[address] [place] [address]Dr. Slick Broderick MCH (RBC) [Entitic mass] 29.2 pg Normal 26.7-34.0 [facility] Comment on above: Performed By: #### C BC ####[facility] Awtzprttyi25[address] [place] [address]Dr. Slick Davie MCHC (RBC) [Mass/Vol] 31.7 g/dL Normal 29.9-35.2 [facility] Comment on above: Performed By: #### C BC ####[facility] Ifzruwpkwz5644 [place] [address]Dr. Slick Broderick MCV (RBC) [Entitic vol] 92.0 fL Normal 81.0-99.0 [facility] Comment on above: Performed By: #### C BC ####[facility] Zeiaeazygs173[address] [place], [place] [address]Dr. Slick Broderick MONO # 0.6 103/ul Normal 0.3-0.8 [facility] Comment on above: Performed By: #### C BC ####[facility] Reyuqfnyar33[address] [place], [place] [address]Dr. Slick Broderick Monocytes/100 WBC (Bld) 10.1 % Normal 1.7-12.0 [facility] Comment on above: Performed By: #### C BC ####[facility] Lcbwsqfjag99[address] [place], [place] [address]Dr. Slick Broderick NEUT # 3.5 103/ul Normal 1.4-6.5 [facility] Comment on above: Performed By: #### C BC ####[facility] Hhzcfqpmyt511[address] [place], [place] [address]Dr. Slick Broderick Neutrophils/100 WBC (Bld) 63.0 % Normal 43.0-75.0 [facility] Comment on above: Performed By: #### C BC ####[facility] Muuccjqmhl73[address] [place], [place] [address]Dr. Slick Broderick Platelet mean volume (Bld) [Entitic vol] 10.0 fL Normal 9.5-13.5 [facility] Comment on above: Performed By: #### C BC ####[facility] Nilmfswlff660[address] [place], [place] [address]Dr. Slick Broderick PLT 198 103/ul Normal 150-450 [facility] Comment on above: Performed By: #### C BC ####[facility] Yssbtbzldi62[address] [place] [address]Dr. Meaganwendie Davie RBC 2.88 106/ul Critically low 4.20-5.40 [facility] Comment on above: Performed By: #### C BC ####[facility] Pqgtpcaaba90[address] [place] [id number]. Slick Broderick WBC 5.6 103/ul Normal 4.0-11.0 [facility] Comment on above: Performed By: #### C BC ####[facility] Oswfijfllu[address] [place] [address]Dr. S[address] Bro[address] CT HEAD WO CONon 04-22-2022 CT HEAD WO CON Normal [facility] POINT OF CARE GLUCOSEon 04-12 Glucose [Mass/Vol] 110 mg/dL Critically high 74-106 [facility] Comment on above: Performed By: #### P OCGLUC ####[facility] Sgadjqitmv85[address] [place] [address]Dr. Slick Broderick PROF 14(COMP METB)on 022 Albumin [Mass/Vol] 3.0 g/dL Critically low 3.4-5.0 [facility] Comment on above: Performed By: #### C MP ####[facility] Cnqkvzsqyy28[address] [place] [address]Dr. Slick Broderick Albumin/Globulin [Mass ratio] 0.9 {ratio} Normal [facility] Comment on above: Performed By: #### C MP ####[facility] Vsrpmhzhql13[address] [place] [id number]. Slick Broderick ALP [Catalytic activity/Vol] 93 U/L Normal 46-116 [facility] Comment on above: Performed By: #### C MP ####[facility] Rjkklnerci4[address] [place] [address]Dr. Slick Broderick ALT [Catalytic activity/Vol] 22 U/L Normal 14-59 [facility] Comment on above: Performed By: #### C MP ####[facility] Ajxybbyurb1134 [place] [id number]. Slick Broderick Anion gap [Moles/Vol] 8.9 mmol/L Normal [facility] Comment on above: Performed By: #### C MP ####[facility] Ybkejgswgp25[address] [place] [address]Dr. Slick Broderick AST [Catalytic activity/Vol] 18 U/L Normal 15-37 [facility] Comment on above: Performed By: #### C MP ####[facility] Samnkimvte[address] [place], [place] [address]Dr. Slick Broderick Bilirubin [Mass/Vol] 0.3 mg/dL Normal 0.2-1.0 [facility] Comment on above: Performed By: #### C MP ####[facility] Exrfvcrqvl300[address] [place], [place] [address]Dr. Slick Broderick Calcium [Mass/Vol] 9.6 mg/dL Normal 8.5-10.1 [facility] Comment on above: Performed By: #### C MP ####[facility] Ibqlgvqyre[address] [place], [place] [address]Dr. Slick Broderick Chloride [Moles/Vol] 104 mmol/L Normal 98-107 [facility] Comment on above: Performed By: #### C MP ####[facility] Kdsyrxwnhu04[address] [place], [place] [address]Dr. Slick Broderick CO2 [Moles/Vol] 30.8 mmol/L Normal 21.0-32.0 [facility] Comment on above: Performed By: #### C MP ####[facility] Tyxvzscvml95[address] [place], [place] [address]Dr. Slick Davie Creatinine [Mass/Vol] 1.73 mg/dL Critically high 0.55-1.02 [facility] Comment on above: Performed By: #### C MP ####[facility] Ceisnvfzze787[address] [place], [place] [address]Dr. Slick Davie EGFR-AF IVORIAN 35 mL/min/1.73m2 Critically low >=60 [facility] Comment on above: Performed By: #### C MP ####[facility] Bmnvpegfzf2483 [place] [id number]. Slick Broderick EGFR-NON AF IVORIAN 29 mL/min/1.73m2 Critically low >=60 [facility] Comment on above: Performed By: #### C MP ####[facility] Qtqqpptuze2460 [place] [address]Dr. Slick Broderick Globulin (S) [Mass/Vol] 3.4 g/dL Normal [facility] Comment on above: Performed By: #### C MP ####[facility] Krmpbdwiqe8[address] [place] [address]Dr. Slick Broderick Glucose [Mass/Vol] 94 mg/dL Normal 74-106 [facility] Comment on above: Performed By: #### C MP ####[facility] Bdrctbbket6103 [place] [address]Dr. Slick Broderick Potassium [Moles/Vol] 4.7 mmol/L Normal 3.5-5.1 [facility] Comment on above: Performed By: #### C MP ####[facility] Vrbebptnhu447[address] [place], [place] [address]Dr. Slick Broderick Protein [Mass/Vol] 6.4 g/dL Normal 6.4-8.2 [facility] Comment on above: Performed By: #### C MP ####[facility] Puicletbvt390[address] [place], [place] [address]Dr. Slick Broderick Sodium [Moles/Vol] 139 mmol/L Normal 136-145 [facility] Comment on above: Performed By: #### C MP ####[facility] Xlwrzxlwaq5041 [place] [address]Dr. Slick Broderick Urea nitrogen [Mass/Vol] 46.0 mg/dL Critically high 7.0-18.0 [facility] Comment on above: Performed By: #### C MP ####[facility] Edavfmwdrv724[address] [place], [place] [address]Dr. Slick Broderick Urea nitrogen/Creatinine [Mass ratio] 26.6 mg/mg Normal [facility] Comment on above: Performed By: #### C MP ####[facility] Eziakfnfgr5[address] [place] [address]Dr. Slick Broderick PROF CHEM 8 (BAS METB)on Anion gap [Moles/Vol] 8.6 mmol/L Normal [facility] Comment on above: Performed By: #### B MP ####[facility] Jldrejvmxv04[address] [place] [address]Dr. Slick Broderick Calcium [Mass/Vol] 9.9 mg/dL Normal 8.5-10.1 [facility] Comment on above: Performed By: #### B MP ####[facility] Qdvsnzjdnb899[address] [place], [place] [address]Dr. Slick Broderick Chloride [Moles/Vol] 103 mmol/L Normal 98-107 [facility] Comment on above: Performed By: #### B MP ####[facility] Zszograxuj7[address] [place], [place] [address]Dr. Slick Broderick CO2 [Moles/Vol] 29.5 mmol/L Normal 21.0-32.0 [facility] Comment on above: Performed By: #### B MP ####[facility] Noygyndxfg601[address] [place], [place] [address]Dr. Slick Broderick Creatinine [Mass/Vol] 1.62 mg/dL Critically high 0.55-1.02 [facility] Comment on above: Performed By: #### B MP ####[facility] Vstyvlxeuv8[address] [place], [place] [address]Dr. Slick Broderick EGFR-AF IVORIAN 38 mL/min/1.73m2 Critically low >=60 [facility] Comment on above: Performed By: #### B MP ####[facility] Lemteghwty[address] [place], [place] [address]Dr. Slick Broderick EGFR-NON AF IVORIAN 31 mL/min/1.73m2 Critically low >=60 [facility] Comment on above: Performed By: #### B MP ####[facility] Hlvxsjybkt62[address] [place], [place] [address]Dr. Slick Broderick Glucose [Mass/Vol] 125 mg/dL Critically high 74-106 [facility] Comment on above: Performed By: #### B MP ####[facility] Xxrtbdhzau3170 [place] [address]Dr. Slick Broderick Potassium [Moles/Vol] 4.1 mmol/L Normal 3.5-5.1 [facility] Comment on above: Performed By: #### B MP ####[facility] Tycrekphzm0961 [place] [address]Dr. Slick Broderick Sodium [Moles/Vol] 137 mmol/L Normal 136-145 [facility] Comment on above: Performed By: #### B MP ####[facility] Vkhofezkhv9708 [place] [address]Dr. Slick Broderick Urea nitrogen [Mass/Vol] 41.0 mg/dL Critically high 7.0-18.0 [facility] Comment on above: Performed By: #### B MP ####[facility] Jewyoslpzd116[address] [place], [place] [address]Dr. Slick Broderick Urea nitrogen/Creatinine [Mass ratio] 25.3 mg/mg Normal [facility] Comment on above: Performed By: #### B MP ####[facility] Zmzkirnmme[address] [place], [place] [address]Dr. Slick Broderick PROTIMEon 04-22-2022 INR Coag (PPP) [Relative time] 1.08 {INR} Normal [facility] Comment on above: Performed By: #### P T, PTT ####[facility] Arslfdeoex[address] [place], [place] [address]Dr. Slick Broderick INR GUIDELINES SEE BELOW Normal [facility] Comment on above: Result Comment: EDMUND RED INR: 2.0 - 3.0 CONDITIONS NOT LISTED BELOW 2.5 - 3.5 FOR PROSTHETIC HEART VALVE REPLACEMENT 2.5 - 3.5 RECURRENT THROMBOSIS Performed By: #### P T, PTT ####[facility] Dtmhtjqqhb896[address] [place], [place] [address]Dr. Slick Broderick PT Coag (PPP) [Time] 11.6 s Normal 9.0-11.6 [facility] Comment on above: Performed By: #### P T, PTT ####[facility] Bwlxwpceck8[address] [place], [place] [address]DrEmma Slick Broderick PTTon 04-22-2022 aPTT Coag (Bld) [Time] 30.7 s Normal 22.3-36.2 [facility] Comment on above: Performed By: #### P T, PTT ####[facility] Vmjikxvyxy4[address] [place] [address]Dr. Slick Davie XR TIB_FIB RT 2Von 2 XR TIB_FIB RT 2V Normal [facility] CBC AUTO DIFFon 04-21-2022 BASO # 0.0 103/ul Normal 0.0-0.1 [facility] Comment on above: Performed By: #### C BC ####[facility] Dyaybpdbyp65[address] [place], [place] [address]DrEmma Broderick Basophils/100 WBC (Bld) 0.3 % Normal 0.2-2.0 [facility] Comment on above: Performed By: #### C BC ####[facility] Fwvmulatjl567[address] [place], [place] [address]DrEmma rBoderick EO # 0.6 103/ul Normal 0.0-0.7 [facility] Comment on above: Performed By: #### C BC ####[facility] Ddrwchjvdw495[address] [place], [place] [address]DrEmma Broderick Eosinophils/100 WBC (Bld) 10.2 % Critically high 0.9-7.0 [facility] Comment on above: Performed By: #### C BC ####[facility] Kddduswfcv201[address] [place], [place] [address]DrEmma Broderick Erythrocyte distribution width (RBC) [Ratio] 14.2 % Normal 11.0-15.0 [facility] Comment on above: Performed By: #### C BC ####[facility] Kkuqlagrhy2918[address] [place], [place] [address]DrEmma Broderick Hematocrit (Bld) [Volume fraction] 25.5 % Critically low 36.0-48.0 [facility] Comment on above: Performed By: #### C BC ####[facility] Isbdlrwtnm19450[address] [place], [place] [address]Dr. Slick Broderick Hemoglobin (Bld) [Mass/Vol] 8.1 g/dL Critically low 12.0-16.0 [facility] Comment on above: Performed By: #### C BC ####[facility] Dwwvoqmwfy4354 [place] [address]Dr. Slick Broderick IG # 0.02 10e3/ul Normal 0.00-0.03 [facility] Comment on above: Performed By: #### C BC ####[facility] Hpivpinfkt6882 [place] [address]Dr. Slick Broderick IG % 0.3 % Normal 0.0-0.5 [facility] Comment on above: Performed By: #### C BC ####[facility] Roylupkydt4[address] [place], [place] [address]Dr. Slick Broderick LYMPH # 0.8 103/ul Critically low 1.2-3.8 [facility] Comment on above: Performed By: #### C BC ####[facility] Zcimaagjct715[address] [place], [place] [address]Dr. Slick Broderick Lymphocytes/100 WBC (Bld) 13.2 % Critically low 20.5-60.0 [facility] Comment on above: Performed By: #### C BC ####[facility] Fxdclfgpyw249[address] [place], [place] [address]Dr. Meaganwendie Broderick MANUAL DIFF REQ NO Normal [facility] Comment on above: Performed By: #### C BC ####[facility] Uyrcczvauf806[address] [place], [place] [address]Dr. Slick Davie MCH (RBC) [Entitic mass] 29.5 pg Normal 26.7-34.0 [facility] Comment on above: Performed By: #### C BC ####[facility] Gvbknkpdji534[address] [place], [place] [address]Dr. Slick Broderick MCHC (RBC) [Mass/Vol] 31.8 g/dL Normal 29.9-35.2 [facility] Comment on above: Performed By: #### C BC ####[facility] Dzqgbzlfza6727[address] [place], [place] [address]Dr. lSick Broderick MCV (RBC) [Entitic vol] 92.7 fL Normal 81.0-99.0 [facility] Comment on above: Performed By: #### C BC ####[facility] Qfcprwhlcz14[address] [place] [address]Dr. Slick Broderick MONO # 0.6 103/ul Normal 0.3-0.8 [facility] Comment on above: Performed By: #### C BC ####[facility] Svhfzyxrvf4[address] [place] [address]Dr. Slick Davie Monocytes/100 WBC (Bld) 9.2 % Normal 1.7-12.0 [facility] Comment on above: Performed By: #### C BC ####[facility] Nbgqbdhgsg32[address] [place], [place] [address]Dr. Slick Broderick NEUT # 4.1 103/ul Normal 1.4-6.5 [facility] Comment on above: Performed By: #### C BC ####[facility] Cqglwquemq36[address] [place], [place] [address]Dr. Slick Davie Neutrophils/100 WBC (Bld) 66.8 % Normal 43.0-75.0 [facility] Comment on above: Performed By: #### C BC ####[facility] Rayeayiljc88[address] [place], [place] [address]DrEmma Slick Davie Platelet mean volume (Bld) [Entitic vol] 9.5 fL Normal 9.5-13.5 [facility] Comment on above: Performed By: #### C BC ####[facility] Okawfaypnc[address] [place] [address]Dr. Slick Davie PLT 189 103/ul Normal 150-450 [facility] Comment on above: Performed By: #### C BC ####[facility] Rdbdlmoljk866[address] [place], [place] [address]DrEmma Rhodeswendie Davie RBC 2.75 106/ul Critically low 4.20-5.40 [facility] Comment on above: Performed By: #### C BC ####[facility] Tonzhmulvp66[address] [place], [place] [address]DrEmma Broderick WBC 6.2 103/ul Normal 4.0-11.0 [facility] Comment on above: Performed By: #### C BC ####[facility] Iwmyjxhxan026[address] [place] [address]Dr. Slick Broderick BASO # 0.1 103/ul Normal 0.0-0.1 [facility] Comment on above: Performed By: #### C BC ####[facility] Qxkcihooek8421 [place] [address]Dr. Slick Broderick Basophils/100 WBC (Bld) 0.8 % Normal 0.2-2.0 [facility] Comment on above: Performed By: #### C BC ####[facility] Rafnrvedhu100[address] [place], [place] [address]Dr. Slick Broderick EO # 0.8 103/ul Critically high 0.0-0.7 [facility] Comment on above: Performed By: #### C BC ####[facility] Qmnpskcqnr9927[address] [place], [place] [address]Dr. Slick Broderick Eosinophils/100 WBC (Bld) 11.7 % Critically high 0.9-7.0 [facility] Comment on above: Performed By: #### C BC ####[facility] Ofoeitcdkr2669[address] [place], [place] [address]Dr. Slick Broderick Erythrocyte distribution width (RBC) [Ratio] 14.1 % Normal 11.0-15.0 [facility] Comment on above: Performed By: #### C BC ####[facility] Ochslowtly304[address] [place], [place] [address]Dr. Slick Broderick Hematocrit (Bld) [Volume fraction] 27.3 % Critically low 36.0-48.0 [facility] Comment on above: Performed By: #### C BC ####[facility] Eceavohtum155[address] [place], [place] [address]Dr. Slick Broderick Hemoglobin (Bld) [Mass/Vol] 8.4 g/dL Critically low 12.0-16.0 [facility] Comment on above: Performed By: #### C BC ####[facility] Ijkxngxvcy79[address] [place] [address]Dr. Slick Davie IG # 0.02 10e3/ul Normal 0.00-0.03 [facility] Comment on above: Performed By: #### C BC ####[facility] Rigjamngnc2537 [place] [address]Dr. Slick Davie IG % 0.3 % Normal 0.0-0.5 [facility] Comment on above: Performed By: #### C BC ####[facility] Irwpqyzszy39[address] [place], [place] [address]Dr. Slick Broderick LYMPH # 1.0 103/ul Critically low 1.2-3.8 [facility] Comment on above: Performed By: #### C BC ####[facility] Icsrdaushx2716[address] [place], [place] [address]Dr. Slick Broderick Lymphocytes/100 WBC (Bld) 14.5 % Critically low 20.5-60.0 [facility] Comment on above: Performed By: #### C BC ####[facility] Gelkabuedd[address] [place], [place] [address]DrEmma Meaganwendie Broderick MANUAL DIFF REQ NO Normal [facility] Comment on above: Performed By: #### C BC ####[facility] Utofvjcdeg9[address] [place], [place] [address]DrEmma Slick Broderick MCH (RBC) [Entitic mass] 29.2 pg Normal 26.7-34.0 [facility] Comment on above: Performed By: #### C BC ####[facility] Kfjlnqjfxc[address] [place], [place] [address]DrEmma Slick Davie MCHC (RBC) [Mass/Vol] 30.8 g/dL Normal 29.9-35.2 [facility] Comment on above: Performed By: #### C BC ####[facility] Dthxplljuk[address] [place], [place] [address]DrEmma Slick Davie MCV (RBC) [Entitic vol] 94.8 fL Normal 81.0-99.0 [facility] Comment on above: Performed By: #### C BC ####[facility] Mfrvjkxiei038[address] [place], [place] [address]Dr. Slick Broderick MONO # 0.6 103/ul Normal 0.3-0.8 [facility] Comment on above: Performed By: #### C BC ####[facility] Xriuenfvrw1186 [place] [id number]. Slick Broderick Monocytes/100 WBC (Bld) 9.7 % Normal 1.7-12.0 [facility] Comment on above: Performed By: #### C BC ####[facility] Exvuujvrnb9750 [place] [address]Dr. Slick Broderick NEUT # 4.2 103/ul Normal 1.4-6.5 [facility] Comment on above: Performed By: #### C BC ####[facility] Oqqjxmzlyu67[address] [place] [address]Dr. Slick Broderick Neutrophils/100 WBC (Bld) 63.0 % Normal 43.0-75.0 [facility] Comment on above: Performed By: #### C BC ####[facility] Qkjelkoqdq3274 [place] [address]Dr. Slick Broderick Platelet mean volume (Bld) [Entitic vol] 10.0 fL Normal 9.5-13.5 [facility] Comment on above: Performed By: #### C BC ####[facility] Nkfrlyupbu26[address] [place] [address]Dr. Slick Broderick PLT 210 103/ul Normal 150-450 [facility] Comment on above: Performed By: #### C BC ####[facility] [address] [place] [address]Dr. Slick Broderick RBC 2.88 106/ul Critically low 4.20-5.40 [facility] Comment on above: Performed By: #### C BC ####[facility] Dooujfgfnl[address] [place] [id number]. Slick Broderick WBC 6.6 103/ul Normal 4.0-11.0 [facility] Comment on above: Performed By: #### C BC ####[facility] Ulwrndxsng350[address] [place] [address]Dr. Slick Broderick CRPon 11-10-2022 CRP 0.4 mg/dL Normal <=1.0 [facility] Comment on above: Performed By: #### H STROPN, CRP, CMP ####[facility] Yxuoymyngh[address] [place] [id number]. Slick Broderick CT HEAD WO CONon 04-21-2022 CT HEAD WO CON Normal [facility] CULTURE BLOODon 04-21-2022 Microscopic examination of blood, culture Culture Observations: NO GROWTH AT 5 DAYS. Normal [facility] Comment on above: Performed By: #### B LDCX2 ####[facility] Hmeponwayf[address] [place] [id number]. Slick Broderick Microscopic examination of blood, culture Culture Observations: NO GROWTH AT 5 DAYS. Normal [facility] Comment on above: Performed By: #### B LDCX1 ####[facility] Nxauboawaw[address] [place] [id number]. Slick Broderick CULTURE URINEon 04-21-2022 CULTURE URINE Culture Observations: MODERATE GROWTH OF MIXED GENITAL OMAR. NO POTENTIAL PATHOGENS SEEN. Normal [facility] Comment on above: Performed By: #### U RCX ####[facility] Ouywvjbuyo[address] [place], [place] [address]Dr. Slick Broderick [facility]-12 SARS-CoV-2 (COVID-19) RNA DONNIE+probe Ql (Unsp spec) Not detected Normal NOT DETECTED [facility] Comment on above: Result Comment: [...] for this test is supported by the [place] of Health and Human Service's declaration that [...] longer be used). Performed By: #### C ARAMIS ####[facility] Rykslnqhvk[address] [place] [address]Dr. Slick Davie ER URINE PROFILEon 2 Bilirubin Ql (U) Negative Normal NEGATIVE [facility] Comment on above: Performed By: #### JANIS PEDRO ####[facility] Dcljycdokj75[address] [place] [address]Dr. Slick Broderick Clarity (U) CLEAR Normal CLEAR [facility] Comment on above: Performed By: #### JANIS PEDRO ####[facility] Iuhfityebw[address] [place], [place] [address]Dr. Slick Broderick Color (U) LT. YELLOW Normal YELLOW [facility] Comment on above: Performed By: #### JANIS PEDRO ####[facility] Dkefkioemf[address] [place], [place] [address]Dr. Slick Broderick ERUAHD A micrscopic examination will be performed if indicated. Normal [facility] Comment on above: Performed By: #### JANIS PEDRO ####[facility] Bclsepspbo[address] [place], [place] [address]Dr. Slick Broderick Glucose Ql (U) Negative Normal NEGATIVE [facility] Comment on above: Performed By: #### JANIS PEDRO ####[facility] Yathedqudj366[address] [place], [place] [address]Dr. Meaganlan Broderick Hemoglobin Ql (U) Negative Normal NEGATIVE [facility] Comment on above: Performed By: #### JANIS PEDRO ####[facility] Gmbbqndhki00[address] [place], [place] [address]Dr. Slick Broderick Ketones Ql (U) Negative Normal NEGATIVE [facility] Comment on above: Performed By: #### JANIS PEDRO ####[facility] Qqrujhwvjz[address] [place], [place] [address]Dr. Slick Broderick LEUKOCYTES TRACE Abnormal NEGATIVE [facility] Comment on above: Performed By: #### Dennise PLEITEZ UMICRO ####[facility] Hgwavdtxtf02[address] [place] [address]Dr. Slick Broderick Nitrite Ql (U) Negative Normal NEGATIVE [facility] Comment on above: Performed By: #### Dennise PLEITEZ UMICRO ####[facility] Edjagxyojf55[address] [place] [address]Dr. Slick Broderick pH (U) 5.5 [pH] Normal 5-9 [facility] Comment on above: Performed By: #### Dennise PLEITEZ UMICRO ####[facility] Flwhwvstxn[address] [place], [place] [address]Dr. Slick Broderick SPEC GRAVITY 1.010 Normal 1.005-<=1.0 25 [facility] Comment on above: Performed By: #### Dennise PLEITEZ UMICRO ####[facility] Qbaoluvuca[address] [place], [place] [address]Dr. Slick Broderick UA PROTEIN Negative Normal NEGATIVE/ TRACE [facility] Comment on above: Performed By: #### Dennise PLEITEZ UMICRO ####[facility] Zneitxivbp11[address] [place], [place] [address]Dr. Slick Broderick UR MICRO IND INDICATED Normal [facility] Comment on above: Performed By: #### Dennise PLEITEZ UMICRO ####[facility] Tobmpwbopv[address] [place], [place] [address]Dr. Slick Broderick Urobilinogen Qn (U) 0.2 {Hiren'U}/dL Normal 0.2 - 1. 0 [facility] Comment on above: Performed By: #### Dennise PLEITEZ UMICRO ####[facility] Sxltkfqmhn026[address] [place], [place] [address]Dr. Slick Broderick LACTATE/LACTIC ACIDon 2021 Lactate [Moles/Vol] 1.0 mmol/L Normal 0.4-1.9 [facility] Comment on above: Performed By: #### L ACT ####[facility] Uarfrokpsn[address] [place], [place] [address]Dr. Slick Broderick POINT OF CARE GLUCOSEon 04-12 Glucose [Mass/Vol] 109 mg/dL Critically high 74-106 [facility] Comment on above: Performed By: #### P OCGLUC ####[facility] Htpnfifwrv[address] [place] [address]Dr. Slick Broderick Glucose [Mass/Vol] 93 mg/dL Normal 74-106 [facility] Comment on above: Performed By: #### P OCGLUC ####[facility] Hmtzofayaq79[address] [place] [address]Dr. Slick Broderick Glucose [Mass/Vol] 140 mg/dL Critically high 74-106 [facility] Comment on above: Performed By: #### P OCGLUC ####[facility] Wkwmtwivpm350[address] [place] [address]Dr. Slick Broderick Glucose [Mass/Vol] 95 mg/dL Normal 74-106 [facility] Comment on above: Performed By: #### P OCGLUC ####[facility] Tsjjsjbnjg4[address] [place] [address]Dr. Slick Broderick PROF 14(COMP METB)on 022 Albumin [Mass/Vol] 2.9 g/dL Critically low 3.4-5.0 [facility] Comment on above: Performed By: #### C MP ####[facility] Cugeepcqli[address] [place] [address]Dr. Slick Davie Albumin/Globulin [Mass ratio] 0.9 {ratio} Normal [facility] Comment on above: Performed By: #### C MP ####[facility] Zoohbmrvug7[address] [place] [address]Dr. Slick Davie ALP [Catalytic activity/Vol] 87 U/L Normal 46-116 [facility] Comment on above: Performed By: #### C MP ####[facility] Xmaddlsfmm[address] [place] [address]Dr. Slick Davie ALT [Catalytic activity/Vol] 21 U/L Normal 14-59 [facility] Comment on above: Performed By: #### C MP ####[facility] Rcwfmmkdsb9746 [place] [address]Dr. Slick Broderick Anion gap [Moles/Vol] 7.7 mmol/L Normal [facility] Comment on above: Performed By: #### C MP ####[facility] Buvagzhugy[address] [place], [place] [address]Dr. Slick Broderick AST [Catalytic activity/Vol] 11 U/L Critically low 15-37 [facility] Comment on above: Performed By: #### C MP ####[facility] Jdygaqpzha[address] [place], [place] [address]Dr. Slick Broderick Bilirubin [Mass/Vol] 0.2 mg/dL Normal 0.2-1.0 [facility] Comment on above: Performed By: #### C MP ####[facility] Cxqnkgmouu599[address] [place], [place] [address]Dr. Slick Broderick Calcium [Mass/Vol] 9.4 mg/dL Normal 8.5-10.1 [facility] Comment on above: Performed By: #### C MP ####[facility] Oslmoqjgce[address] [place], [place] [address]Dr. Slick Broderick Chloride [Moles/Vol] 107 mmol/L Normal 98-107 [facility] Comment on above: Performed By: #### C MP ####[facility] Pacutyjvlt284[address] [place], [place] [address]Dr. Slick Broderick CO2 [Moles/Vol] 31.2 mmol/L Normal 21.0-32.0 [facility] Comment on above: Performed By: #### C MP ####[facility] Nwhbzlylki997[address] [place], [place] [address]Dr. Slick Broderick Creatinine [Mass/Vol] 2.06 mg/dL Critically high 0.55-1.02 [facility] Comment on above: Performed By: #### C MP ####[facility] Dkmrkhwtoj[address] [place], [place] [address]Dr. Slick Broderick EGFR-AF IVORIAN 29 mL/min/1.73m2 Critically low >=60 [facility] Comment on above: Performed By: #### C MP ####[facility] Iqyorsayza[address] [place] [address]Dr. Slick Broderick EGFR-NON AF IVORIAN 24 mL/min/1.73m2 Critically low >=60 [facility] Comment on above: Performed By: #### C MP ####[facility] Pcdldmjdbm69[address] [place] [address]Dr. Slick Broderick Globulin (S) [Mass/Vol] 3.4 g/dL Normal [facility] Comment on above: Performed By: #### C MP ####[facility] Ufqngrtiuu[address] [place], [place] [address]Dr. Slick Broderick Glucose [Mass/Vol] 93 mg/dL Normal 74-106 [facility] Comment on above: Performed By: #### C MP ####[facility] Vkixxuekbt[address] [place], [place] [address]Dr. Slick Broderick Potassium [Moles/Vol] 4.9 mmol/L Normal 3.5-5.1 [facility] Comment on above: Performed By: #### C MP ####[facility] Zxqqyzbsuc[address] [place], [place] [address]Dr. Slick Broderick Protein [Mass/Vol] 6.3 g/dL Critically low 6.4-8.2 [facility] Comment on above: Performed By: #### C MP ####[facility] Lygrlfbdbq[address] [place], [place] [address]Dr. Slick Broderick Sodium [Moles/Vol] 141 mmol/L Normal 136-145 [facility] Comment on above: Performed By: #### C MP ####[facility] Ssihgefaip[address] [place], [place] [address]Dr. Slick Broderick Urea nitrogen [Mass/Vol] 63.0 mg/dL Critically high 7.0-18.0 [facility] Comment on above: Performed By: #### C MP ####[facility] Uhphksgphx767[address] [place], [place] [address]Dr. Slick Broderick Urea nitrogen/Creatinine [Mass ratio] 30.6 mg/mg Normal [facility] Comment on above: Performed By: #### C MP ####[facility] Bpozbkvziw7[address] [place] [address]Dr. Meaganwendie Broderick Albumin [Mass/Vol] 3.1 g/dL Critically low 3.4-5.0 [facility] Comment on above: Performed By: #### H STROPN, CRP, CMP ####[facility] Gnohtwonvt8[address] [place] [address]Dr. Meaganwendie Broderick Albumin/Globulin [Mass ratio] 0.9 {ratio} Normal [facility] Comment on above: Performed By: #### H STROPN, CRP, CMP ####[facility] Jlhpfchgmt80[address] [place] [address]Dr. Meaganwendie Broderick ALP [Catalytic activity/Vol] 98 U/L Normal 46-116 [facility] Comment on above: Performed By: #### H STROPN, CRP, CMP ####[facility] Aadlzuprnv[address] [place], [place] [address]Dr. Slick Broderick ALT [Catalytic activity/Vol] 17 U/L Normal 14-59 [facility] Comment on above: Performed By: #### H STROPN, CRP, CMP ####[facility] Jvihshiodg7351 [place] [address]Dr. Slick Broderick Anion gap [Moles/Vol] 4.3 mmol/L Normal [facility] Comment on above: Performed By: #### H STROPN, CRP, CMP ####[facility] Tacovypeyj7[address] [place] [address]Dr. Slick Broderick AST [Catalytic activity/Vol] 11 U/L Critically low 15-37 [facility] Comment on above: Performed By: #### H STROPN, CRP, CMP ####[facility] Adxsifcyyh4[address] [place] [address]Dr. Slick Broderick Bilirubin [Mass/Vol] 0.2 mg/dL Normal 0.2-1.0 [facility] Comment on above: Performed By: #### H STROPN, CRP, CMP ####[facility] Utfwbfutjg80[address] [place] [address]Dr. Slick Broderick Calcium [Mass/Vol] 9.6 mg/dL Normal 8.5-10.1 [facility] Comment on above: Performed By: #### H STROPN, CRP, CMP ####[facility] Kxsgztvsqc85[address] [place] [address]Dr. Slick Broderick Chloride [Moles/Vol] 104 mmol/L Normal 98-107 [facility] Comment on above: Performed By: #### H STROPN, CRP, CMP ####[facility] Ivxgfwyaxl[address] [place] [address]Dr. Slick Broderick CO2 [Moles/Vol] 32.3 mmol/L Critically high 21.0-32.0 [facility] Comment on above: Performed By: #### H STROPN, CRP, CMP ####[facility] Agtlyalsfg66[address] [place] [address]Dr. Slick Broderick Creatinine [Mass/Vol] 2.49 mg/dL Critically high 0.55-1.02 [facility] Comment on above: Performed By: #### H STROPN, CRP, CMP ####[facility] Eyjlfznhpb[address] [place], [place] [address]Dr. Slick Broderick EGFR-AF IVORIAN 23 mL/min/1.73m2 Critically low >=60 [facility] Comment on above: Performed By: #### H STROPN, CRP, CMP ####[facility] Fouzebsxqw[address] [place], [place] [address]Dr. Slick Broderick EGFR-NON AF IVORIAN 19 mL/min/1.73m2 Critically low >=60 [facility] Comment on above: Performed By: #### H STROPN, CRP, CMP ####[facility] Ipijhayfri32[address] [place] [address]Dr. Slick Broderick Globulin (S) [Mass/Vol] 3.5 g/dL Normal [facility] Comment on above: Performed By: #### H STROPN, CRP, CMP ####[facility] Dvnkyuqyto[address] [place], [place] [address]Dr. Slick Broderick Glucose [Mass/Vol] 112 mg/dL Critically high 74-106 [facility] Comment on above: Performed By: #### H STROPN, CRP, CMP ####[facility] Qauzvephif[address] [place] [address]Dr. Slick Broderick Potassium [Moles/Vol] 4.6 mmol/L Normal 3.5-5.1 [facility] Comment on above: Performed By: #### H STROPN, CRP, CMP ####[facility] Wanceddzgk81[address] [place] [address]Dr. Slick Broderick Protein [Mass/Vol] 6.6 g/dL Normal 6.4-8.2 [facility] Comment on above: Performed By: #### H STROPN, CRP, CMP ####[facility] Nndknbvlue224[address] [place] [address]Dr. Slick Broderick Sodium [Moles/Vol] 136 mmol/L Normal 136-145 [facility] Comment on above: Performed By: #### H STROPN, CRP, CMP ####[facility] Hjttlelfne8486 [place] [address]Dr. Slick Broderick Urea nitrogen [Mass/Vol] 74.0 mg/dL Critically high 7.0-18.0 [facility] Comment on above: Performed By: #### H STROPN, CRP, CMP ####[facility] Xigoxiurie36[address] [place] [address]Dr. Slick Broderick Urea nitrogen/Creatinine [Mass ratio] 29.7 mg/mg Normal [facility] Comment on above: Performed By: #### H STROPN, CRP, CMP ####[facility] Beeejwjzsz[address] [place] [address]Dr. Slick Broderick SED RATE [facility] 2021 SED RATE 32 mm/hr Critically high <=30 [facility] Comment on above: Performed By: #### S EDR ####[facility] Dqcqnwiwlj228[address] [place], [place] [address]Dr. Slick Broderick TROPONIN, HIGH SENSITIVITYon 04-21-2022 HSTROP 8.6 pg/mL Normal 4.0-51.3 [facility] Comment on above: Result Comment: CUT- OFF POINTS HAVE BEEN ESTABLISHED BASED ON THE FOURTH UNIVERSAL DEFINITIONS OF MYOCARDIALINFARCTION. THE UPPER REFERENCE LIMIT (URL) OF TROPONIN, DEFINED THE 99TH PERCENTILE OFcTnI DISTRIBUTION IN A REFERENCE POPULATION, HAS BEEN CONFIRMED THE DECISION THRESHOLDFOR [place] DIAGNOSIS. Performed By: #### H STROPN, CRP, CMP ####[facility] Azgvzhezjk[address] [place] [address]Dr. Slick Broderick URINE MICROSCOPIC ONLYon BACTERIA TRACE Abnormal NONE SEEN [facility] Comment on above: Performed By: #### E RUFrench, UMICRO ####[facility] Ylxnrwyydr[address] [place], [place] [address]Dr. Slick Broderick Bacteria identified Cx Nom (U) INDICATED Normal [facility] Comment on above: Performed By: #### E RUFrench, UMICRO ####[facility] Indsrhvkbi189[address] [place], [place] [address]Dr. Slick Broderick CAST NONE SEEN Normal NONE SEEN [facility] Comment on above: Performed By: #### E MAIK, UMICRO ####[facility] Yvzptxwsvi[address] [place], [place] [address]Dr. Slick Broderick Crystals LM Nom (Urine sed) NONE SEEN Normal NONE SEEN [facility] Comment on above: Performed By: #### E RUFrench UMICRO ####[facility] Jazbrcmhib9[address] [place], [place] [address]Dr. Slick Broderick Epithelial cells LM Ql (Urine sed) FEW Abnormal NONE SEEN /RARE [facility] Comment on above: Performed By: #### E RUFrench, UMICRO ####[facility] Rmlqyvshvm[address] [place], [place] [address]Dr. Slick Broderick MUCOUS NONE SEEN Normal NONE SEEN [facility] Comment on above: Performed By: #### E RUR, UMICRO ####[facility] Idawobiizv[address] [place], [place] [address]Dr. Slick Broderick RBC 0-2 Normal 0-2 [facility] Comment on above: Performed By: #### E RUR, UMICRO ####[facility] Pjwponvtli[address] [place], [place] [address]Dr. Slick Broderick WBC 5-10 Abnormal NONE SEEN [facility] Comment on above: Performed By: #### E RUR, UMICRO ####[facility] Weafskqsye[address] [place] [id number]. Slick Davie XR CHEST 1 Von 04-21-2022 XR CHEST 1 V Normal [facility] CBC AUTO DIFFon 03-29-2022 BASO # 0.1 103/ul Normal 0.0-0.1 [facility] Comment on above: Performed By: #### C BC ####[facility] Wrhgulhdlv27[address] [place] [address]Dr. Slick Broderick Basophils/100 WBC (Bld) 0.7 % Normal 0.2-2.0 [facility] Comment on above: Performed By: #### C BC ####[facility] Dlsxvvnuoy38[address] [place] [address]Dr. Slick Broderick EO # 0.4 103/ul Normal 0.0-0.7 [facility] Comment on above: Performed By: #### C BC ####[facility] Uqhmhpyeuy09[address] [place] [address]Dr. Slick Broderick Eosinophils/100 WBC (Bld) 4.8 % Normal 0.9-7.0 [facility] Comment on above: Performed By: #### C BC ####[facility] Azaiwcmfpl9[address] [place], [place] [address]Dr. Meaganwendie Davie Erythrocyte distribution width (RBC) [Ratio] 13.9 % Normal 11.0-15.0 [facility] Comment on above: Performed By: #### C BC ####[facility] Vbbqrihwwf3797 [place] [id number]. Slick Broderick Hematocrit (Bld) [Volume fraction] 28.0 % Critically low 36.0-48.0 [facility] Comment on above: Performed By: #### C BC ####[facility] Hfugfnzqoz[address] [place] [address]Dr. Slick Broderick Hemoglobin (Bld) [Mass/Vol] 8.8 g/dL Critically low 12.0-16.0 [facility] Comment on above: Performed By: #### C BC ####[facility] Asvedxbyfk63[address] [place] [id number] Broderick IG # 0.05 10e3/ul Critically high 0.00-0.03 [facility] Comment on above: Performed By: #### C BC ####[facility] Cqbryaymxn7399 [place] [address]DrEmma Slick Davie IG % 0.7 % Critically high 0.0-0.5 [facility] Comment on above: Performed By: #### C BC ####[facility] Yspohuhlbu0429 [place] [address]DrEmma Broderick LYMPH # 1.0 103/ul Critically low 1.2-3.8 [facility] Comment on above: Performed By: #### C BC ####[facility] Argjisxthb3284 [place] [address]DrEmma Broderick Lymphocytes/100 WBC (Bld) 13.0 % Critically low 20.5-60.0 [facility] Comment on above: Performed By: #### C BC ####[facility] Njojzhfqjy[address] [place], [place] [address]DrEmma Broderick MANUAL DIFF REQ NO Normal [facility] Comment on above: Performed By: #### C BC ####[facility] Slthccapsq[address] [place], [place] [address]DrEmma Slick Davie MCH (RBC) [Entitic mass] 28.9 pg Normal 26.7-34.0 [facility] Comment on above: Performed By: #### C BC ####[facility] Itsooafvxl[address] [place], [place] [address]DrEmma Broderick MCHC (RBC) [Mass/Vol] 31.4 g/dL Normal 29.9-35.2 [facility] Comment on above: Performed By: #### C BC ####[facility] Kpbtjyrtpa[address] [place], [place] [address]DrEmma Broderick MCV (RBC) [Entitic vol] 92.1 fL Normal 81.0-99.0 [facility] Comment on above: Performed By: #### C BC ####[facility] Lfnftetlml[address] [place], [place] [address]Dr. Slick Broderick MONO # 0.8 103/ul Normal 0.3-0.8 [facility] Comment on above: Performed By: #### C BC ####[facility] Jnllpdxxpx20[address] [place] [id number]. Silck Broderick Monocytes/100 WBC (Bld) 10.7 % Normal 1.7-12.0 [facility] Comment on above: Performed By: #### C BC ####[facility] Vpgndckmtj65[address] [place] [address]Dr. Slick Broderick NEUT # 5.4 103/ul Normal 1.4-6.5 [facility] Comment on above: Performed By: #### C BC ####[facility] Byjbzokkbb9[address] [place] [address]Dr. Slick Broderick Neutrophils/100 WBC (Bld) 70.1 % Normal 43.0-75.0 [facility] Comment on above: Performed By: #### C BC ####[facility] Oqbqlwmivg[address] [place] [address]Dr. Slick Broderick Platelet mean volume (Bld) [Entitic vol] 8.9 fL Critically low 9.5-13.5 [facility] Comment on above: Performed By: #### C BC ####[facility] [address] [place] [address]Dr. Slick Broderick PLT 221 103/ul Normal 150-450 [facility] Comment on above: Performed By: #### C BC ####[facility] Fcyomjvbpa[address] [place] [id number]. Slick Broderick RBC 3.04 106/ul Critically low 4.20-5.40 [facility] Comment on above: Performed By: #### C BC ####[facility] Mbkgxwtyhw[address] [place] [address]Dr. Slick Broderick WBC 7.7 103/ul Normal 4.0-11.0 [facility] Comment on above: Performed By: #### C BC ####[facility] Hkersljfov[address] [place] [id number]. Yiwendie Broderick PRBC LEUKOREDUCEDon 10-18-20 22 PRBC LEUKOREDUCED Cross Match Result Compatible Unit Blood Type O Pos Unit Number [id number] Status Information Transfused Product ID Red Blood Cells Product Code [id number] Normal [facility] Comment on above: Performed By: #### P RBC ####[facility] [address]ayarfwvjn[address] [place] [address]Dr. Slick Broderick PROF CHEM 8 (BAS METB)on Anion gap [Moles/Vol] 9.6 mmol/L Normal [facility] Comment on above: Performed By: #### B MP ####[facility] Sfmnkrljyu20[address] [place] [address]Dr. Slick Broderick Calcium [Mass/Vol] 9.4 mg/dL Normal 8.5-10.1 [facility] Comment on above: Performed By: #### B MP ####[facility] Mmdhuetlcb[address] [place], [place] [address]Dr. Slick Broderick Chloride [Moles/Vol] 101 mmol/L Normal 98-107 [facility] Comment on above: Performed By: #### B MP ####[facility] Ieckcliwfa[address] [place] [address]Dr. Slick Broderick CO2 [Moles/Vol] 28.3 mmol/L Normal 21.0-32.0 [facility] Comment on above: Performed By: #### B MP ####[facility] Vndofqlboz40[address] [place] [address]Dr. Slick Broderick Creatinine [Mass/Vol] 1.56 mg/dL Critically high 0.55-1.02 [facility] Comment on above: Performed By: #### B MP ####[facility] Vrrevwingw[address] [place] [address]Dr. Slick Broderick EGFR-AF IVORIAN 39 mL/min/1.73m2 Critically low >=60 [facility] Comment on above: Performed By: #### B MP ####[facility] Ozkhvoznhv7[address] [place] [address]Dr. Slick Broderick EGFR-NON AF IVORIAN 33 mL/min/1.73m2 Critically low >=60 [facility] Comment on above: Performed By: #### B MP ####[facility] Zfqfzrrstq80[address] [place] [address]Dr. Slick Davie Glucose [Mass/Vol] 88 mg/dL Normal 74-106 [facility] Comment on above: Performed By: #### B MP ####[facility] Zhgihwyped4[address] [place] [id number]. Slick Broderick Potassium [Moles/Vol] 4.9 mmol/L Normal 3.5-5.1 [facility] Comment on above: Performed By: #### B MP ####[facility] Mlxglfuacz336[address] [place], [place] [address]Dr. Slick Broderick Sodium [Moles/Vol] 134 mmol/L Critically low 136-145 [facility] Comment on above: Performed By: #### B MP ####[facility] Fxhldrcuzy34[address] [place], [place] [address]Dr. Slick Broderick Urea nitrogen [Mass/Vol] 50.0 mg/dL Critically high 7.0-18.0 [facility] Comment on above: Performed By: #### B MP ####[facility] Bqwkclslmq90[address] [place], [place] [address]Dr. Slick Broderick Urea nitrogen/Creatinine [Mass ratio] 32.1 mg/mg Normal [facility] Comment on above: Performed By: #### B MP ####[facility] Eimfebvmbv39[address] [place], [place] [address]Dr. Slick Broderick CBC AUTO DIFFon 03-28-2022 BASO # 0.1 103/ul Normal 0.0-0.1 [facility] Comment on above: Performed By: #### C BC ####[facility] Wvgtaaiiwh[address] [place], [place] [address]Dr. Slick Broderick Basophils/100 WBC (Bld) 0.7 % Normal 0.2-2.0 [facility] Comment on above: Performed By: #### C BC ####[facility] Lldzsdwoml[address] [place], [place] [address]Dr. Slick Broderick EO # 0.4 103/ul Normal 0.0-0.7 [facility] Comment on above: Performed By: #### C BC ####[facility] Wpuvkfylrq26[address] [place] [address]Dr. Slick Davie Eosinophils/100 WBC (Bld) 5.5 % Normal 0.9-7.0 [facility] Comment on above: Performed By: #### C BC ####[facility] Zuqluidxvr004[address] [place], [place] [address]Dr. Slick Davie Erythrocyte distribution width (RBC) [Ratio] 13.6 % Normal 11.0-15.0 [facility] Comment on above: Performed By: #### C BC ####[facility] Vntdyyfdcb26[address] [place], [place] [address]Dr. Slick Broderick Hematocrit (Bld) [Volume fraction] 27.9 % Critically low 36.0-48.0 [facility] Comment on above: Performed By: #### C BC ####[facility] Gngbpgwnsb634[address] [place], [place] [address]Dr. Slick Broderick Hemoglobin (Bld) [Mass/Vol] 9.0 g/dL Critically low 12.0-16.0 [facility] Comment on above: Performed By: #### C BC ####[facility] Scnavsuteu1907[address] [place], [place] [address]Dr. Meaganwendie Davie IG # 0.02 10e3/ul Normal 0.00-0.03 [facility] Comment on above: Performed By: #### C BC ####[facility] Hjdtbmyiod774[address] [place], [place] [address]Dr. Slick Broderick IG % 0.3 % Normal 0.0-0.5 [facility] Comment on above: Performed By: #### C BC ####[facility] Kjkrqbcyjq916[address] [place], [place] [address]Dr. Slick Broderick LYMPH # 0.9 103/ul Critically low 1.2-3.8 [facility] Comment on above: Performed By: #### C BC ####[facility] Sepdmuxyik4[address] [place], [place] [address]Dr. Slick Broderick Lymphocytes/100 WBC (Bld) 13.0 % Critically low 20.5-60.0 [facility] Comment on above: Performed By: #### C BC ####[facility] Rskrwiymkf[address] [place] [address]Dr. Slick Broderick MANUAL DIFF REQ NO Normal [facility] Comment on above: Performed By: #### C BC ####[facility] Jbwrzndnnx5[address] [place] [address]Dr. Slick Broderick MCH (RBC) [Entitic mass] 29.6 pg Normal 26.7-34.0 [facility] Comment on above: Performed By: #### C BC ####[facility] Pubfftjkfa6918[address] [place], [place] [address]Dr. Slick Broderick MCHC (RBC) [Mass/Vol] 32.3 g/dL Normal 29.9-35.2 [facility] Comment on above: Performed By: #### C BC ####[facility] Swwrujviev[address] [place], [place] [address]Dr. Slick Broderick MCV (RBC) [Entitic vol] 91.8 fL Normal 81.0-99.0 [facility] Comment on above: Performed By: #### C BC ####[facility] Ilqjoefbuh[address] [place], [place] [address]DrEmma Broderick MONO # 0.7 103/ul Normal 0.3-0.8 [facility] Comment on above: Performed By: #### C BC ####[facility] Ddmacvitlw338[address] [place], [place] [address]DrEmma Broderick Monocytes/100 WBC (Bld) 11.1 % Normal 1.7-12.0 [facility] Comment on above: Performed By: #### C BC ####[facility] Tpuxdjoqai077[address] [place], [place] [address]DrEmma Broderick NEUT # 4.6 103/ul Normal 1.4-6.5 [facility] Comment on above: Performed By: #### C BC ####[facility] Cspybvmdjl8[address] [place], [place] [address]DrEmma Broderick Neutrophils/100 WBC (Bld) 69.4 % Normal 43.0-75.0 [facility] Comment on above: Performed By: #### C BC ####[facility] Pach[address]avde[address] [place] [address]Dr. Slick Broderick Platelet mean volume (Bld) [Entitic vol] 8.9 fL Critically low 9.5-13.5 [facility] Comment on above: Performed By: #### C BC ####[facility] Gvmjpqnvzo74[address] [place] [address]Dr. Slick Broderick PLT 216 103/ul Normal 150-450 [facility] Comment on above: Performed By: #### C BC ####[facility] Ipnuscdxvz810[address] [place], [place] [address]Dr. Slick Broderick RBC 3.04 106/ul Critically low 4.20-5.40 [facility] Comment on above: Performed By: #### C BC ####[facility] Urwrekjfeo838[address] [place], [place] [address]Dr. Slick Broderick WBC 6.7 103/ul Normal 4.0-11.0 [facility] Comment on above: Performed By: #### C BC ####[facility] Oiqdibqkjb186[address] [place], [place] [address]Dr. Slick Broderick BASO # 0.0 103/ul Normal 0.0-0.1 [facility] Comment on above: Performed By: #### C BC ####[facility] Xvkdaogtan600[address] [place], [place] [address]Dr. Slick Broderick Basophils/100 WBC (Bld) 0.5 % Normal 0.2-2.0 [facility] Comment on above: Performed By: #### C BC ####[facility] Fcblgecbek0013[address] [place], [place] [address]DrEmma Slick Broderick EO # 0.4 103/ul Normal 0.0-0.7 [facility] Comment on above: Performed By: #### C BC ####[facility] Ydptelgdvf916[address] [place], [place] [address]Dr. Slick Davie Eosinophils/100 WBC (Bld) 5.3 % Normal 0.9-7.0 [facility] Comment on above: Performed By: #### C BC ####[facility] Hbt[address]hnikpy7[address] [place] [address]Dr. Slick Broderick Erythrocyte distribution width (RBC) [Ratio] 12.9 % Normal 11.0-15.0 [facility] Comment on above: Performed By: #### C BC ####[facility] Oggcdlbvkq325[address] [place], [place] [address]Dr. Slick Broderick Hematocrit (Bld) [Volume fraction] 23.9 % Critically low 36.0-48.0 [facility] Comment on above: Performed By: #### C BC ####[facility] Yivogdgwqd317[address] [place], [place] [address]Dr. Slick Broderick Hemoglobin (Bld) [Mass/Vol] 7.7 g/dL Critically low 12.0-16.0 [facility] Comment on above: Performed By: #### C BC ####[facility] Lethhgsmif311[address] [place], [place] [address]Dr. Slick Broderick IG # 0.04 10e3/ul Critically high 0.00-0.03 [facility] Comment on above: Performed By: #### C BC ####[facility] Fkmlufgksj683[address] [place], [place] [address]Dr. Slick Broderick IG % 0.5 % Normal 0.0-0.5 [facility] Comment on above: Performed By: #### C BC ####[facility] Zoduujnilp4439[address] [place], [place] [address]Dr. Slick Broderick LYMPH # 0.9 103/ul Critically low 1.2-3.8 [facility] Comment on above: Performed By: #### C BC ####[facility] Acnvxosbgn0815[address] [place], [place] [address]Dr. Slick Broderick Lymphocytes/100 WBC (Bld) 11.7 % Critically low 20.5-60.0 [facility] Comment on above: Performed By: #### C BC ####[facility] Pwmatmjnrx3[address] [place], [place] [address]Dr. Slick Broderick MANUAL DIFF REQ NO Normal [facility] Comment on above: Performed By: #### C BC ####[facility] Mvnczacpvu20[address] [place] [address]Dr. Slick Broderick MCH (RBC) [Entitic mass] 30.1 pg Normal 26.7-34.0 [facility] Comment on above: Performed By: #### C BC ####[facility] Zhduyetpxa127[address] [place], [place] [address]Dr. Slick Broderick MCHC (RBC) [Mass/Vol] 32.2 g/dL Normal 29.9-35.2 [facility] Comment on above: Performed By: #### C BC ####[facility] Soyxygxyoy8[address] [place], [place] [address]DrEmma Broderick MCV (RBC) [Entitic vol] 93.4 fL Normal 81.0-99.0 [facility] Comment on above: Performed By: #### C BC ####[facility] Ydhvijwixj[address] [place], [place] [address]DrEmma Broderick MONO # 0.9 103/ul Critically high 0.3-0.8 [facility] Comment on above: Performed By: #### C BC ####[facility] Xzykffwubt340[address] [place], [place] [address]DrEmma Broderick Monocytes/100 WBC (Bld) 12.0 % Normal 1.7-12.0 [facility] Comment on above: Performed By: #### C BC ####[facility] Tsiimxjkht[address] [place], [place] [address]DrEmma Broderick NEUT # 5.4 103/ul Normal 1.4-6.5 [facility] Comment on above: Performed By: #### C BC ####[facility] Vrcwgcmzyk632[address] [place], [place] [address]DrEmma Broderick Neutrophils/100 WBC (Bld) 70.0 % Normal 43.0-75.0 [facility] Comment on above: Performed By: #### C BC ####[facility] Cboxzfhcox0[address] [place], [place] [address]DrEmma Broderick Platelet mean volume (Bld) [Entitic vol] 9.0 fL Critically low 9.5-13.5 [facility] Comment on above: Performed By: #### C BC ####[facility] Ntpvepklxn8[address] [place], [place] [address]Jf. Slick Broderick PLT 210 103/ul Normal 150-450 [facility] Comment on above: Performed By: #### C BC ####[facility] Kbauurhftd75[address] [place], [place] [address]Ai. Slick Broderick RBC 2.56 106/ul Critically low 4.20-5.40 [facility] Comment on above: Performed By: #### C BC ####[facility] Zwcxbxvzwf4562 [place] [id number]. Slick Broderick WBC 7.7 103/ul Normal 4.0-11.0 [facility] Comment on above: Performed By: #### C BC ####[facility] Eumcgxgeay4[address] [place] [id number]. Slick Broderick CULTURE URINEon 03-28-2022 CULTURE URINE Culture Observations: NO GROWTH. Normal [facility] Comment on above: Performed By: #### U RCX ####[facility] Qquwgbdjpo3352 [place] [id number]. Slick Broderick Covid-19 PCR (CVDTB)on 03-12 SARS-CoV-2 (COVID-19) RNA DONNIE+probe Ql (Unsp spec) Not detected Normal NOT DETECTED [facility] Comment on above: Result Comment: [...] for this test is supported by the Double Cut [employer] of Health and Human Service's declaration that [...] be used). Performed By: #### C VDTBH ####[facility] Avqthkebze[address] [place] [address]Dr. Slick Broderick IRONon 03-28-2022 Iron [Mass/Vol] 32.0 ug/dL Critically low 50.0-170.0 [facility] Comment on above: Performed By: #### I YUNIOR ####[facility] Ansnhggsal[address] [place], [place] [address]Dr. Slick Broderick POINT OF CARE GLUCOSEon 03-12 Glucose [Mass/Vol] 119 mg/dL Critically high 74-106 [facility] Comment on above: Performed By: #### P OCGLUC ####[facility] Htacwxblha966[address] [place], [place] [address]Dr. Slick Broderick Glucose [Mass/Vol] 178 mg/dL Critically high 74-106 [facility] Comment on above: Performed By: #### P OCGLUC ####[facility] Fzapwjugnh77[address] [place], [place] [address]Dr. Slick Broderick Glucose [Mass/Vol] 106 mg/dL Normal 74-106 [facility] Comment on above: Performed By: #### P OCGLUC ####[facility] Zcfbltelou85[address] [place] [address]Dr. Slick Broderick PROF CHEM 8 (BAS METB)on Anion gap [Moles/Vol] 9.5 mmol/L Normal [facility] Comment on above: Performed By: #### B MP ####[facility] Zsbrnjwpza48[address] [place], [place] [address]Dr. Slick Broderick Calcium [Mass/Vol] 9.5 mg/dL Normal 8.5-10.1 [facility] Comment on above: Performed By: #### B MP ####[facility] Hhrlrcfywu38[address] [place] [address]Dr. Slick Broderick Chloride [Moles/Vol] 98 mmol/L Normal 98-107 [facility] Comment on above: Performed By: #### B MP ####[facility] Qtyzskvncn97[address] [place], [place] [address]Dr. Slick Broderick CO2 [Moles/Vol] 28.5 mmol/L Normal 21.0-32.0 [facility] Comment on above: Performed By: #### B MP ####[facility] Fgltqdndgy56[address] [place], [place] [address]Dr. Slick Broderick Creatinine [Mass/Vol] 1.90 mg/dL Critically high 0.55-1.02 [facility] Comment on above: Performed By: #### B MP ####[facility] Yszawqbkha575[address] [place], [place] [address]Dr. Slick Broderick EGFR-AF IVORIAN 31 mL/min/1.73m2 Critically low >=60 [facility] Comment on above: Performed By: #### B MP ####[facility] Wzeeeffvki376[address] [place], [place] [address]Dr. Slick Broderick EGFR-NON AF IVORIAN 26 mL/min/1.73m2 Critically low >=60 [facility] Comment on above: Performed By: #### B MP ####[facility] Crdawwkopm957[address] [place], [place] [address]Dr. Slick Broderick Glucose [Mass/Vol] 102 mg/dL Normal 74-106 [facility] Comment on above: Performed By: #### B MP ####[facility] Ecasorlnva67360[address] [place], [place] [address]Dr. Slick Broderick Potassium [Moles/Vol] 4.0 mmol/L Normal 3.5-5.1 [facility] Comment on above: Performed By: #### B MP ####[facility] Yrhzmomfit6624[address] [place], [place] [address]Dr. Slick Broderick Sodium [Moles/Vol] 132 mmol/L Critically low 136-145 [facility] Comment on above: Performed By: #### B MP ####[facility] Rhxmfdgxxe6419[address] [place], [place] [address]Dr. Slick Broderick Urea nitrogen [Mass/Vol] 56.0 mg/dL Critically high 7.0-18.0 [facility] Comment on above: Performed By: #### B MP ####[facility] Pobaufvfpf[address] [place], [place] [address]Dr. Slick Broderick Urea nitrogen/Creatinine [Mass ratio] 29.5 mg/mg Normal [facility] Comment on above: Performed By: #### B MP ####[facility] Gpvsfcomcl89[address] [place], [place] [address]Dr. Slick Broderick T4on 03-28-2022 T4 [Mass/Vol] 4.90 ug/dL Normal 4.80-13.[address] [facility] Comment on above: Performed By: #### T 4 ####[facility] Odcksfqsyt435[address] [place], [place] [address]Dr. Slick Broderick TSHon 03-28-2022 TSH 2.765 uIU/mL Normal 0.358-3.[address] [facility] Comment on above: Performed By: #### T SH ####[facility] Ypnmmfqznn004[address] [place], [place] [address]Dr. Slick Broderick TYPE AND SCREENon 03-28-2022 TYPE AND SCREEN Negative Normal [facility] Comment on above: Performed By: #### T NS ####[facility] Hhhjddmvrr[address] [place], [place] [address]Dr. Slick Broderick UA RANDOM W/MICROSCOPICon BACTERIA NONE SEEN Normal NONE SEEN [facility] Comment on above: Performed By: #### U AMIC ####[facility] Lvsczrtqgu[address] [place], [place] [address]Dr. Slick Broderick Bilirubin Ql (U) Negative Normal NEGATIVE [facility] Comment on above: Performed By: #### U AMIC ####[facility] Qysvzbhseb[address] [place], [place] [address]Dr. Slick Broderick CAST NONE SEEN Normal NONE SEEN [facility] Comment on above: Performed By: #### U AMIC ####[facility] Nzdleygtxc978[address] [place], [place] [address]Dr. Slick Broderick Clarity (U) CLEAR Normal CLEAR [facility] Comment on above: Performed By: #### U AMIC ####[facility] Pgpbbokdha3[address] [place] [address]Dr. Slick Broderick Color (U) LT. YELLOW Normal YELLOW [facility] Comment on above: Performed By: #### U AMIC ####[facility] Fhbgvtnpvn40[address] [place] [address]Dr. Slick Broderick Crystals LM Nom (Urine sed) NONE SEEN Normal NONE SEEN [facility] Comment on above: Performed By: #### U AMIC ####[facility] Nenmywbmnu[address] [place] [address]Dr. Slick Broderick Epithelial cells LM Ql (Urine sed) FEW Abnormal NONE SEEN /RARE [facility] Comment on above: Performed By: #### U AMIC ####[facility] Uifndhbzdn16[address] [place] [address]Dr. Slick Broderick Glucose Ql (U) Negative Normal NEGATIVE [facility] Comment on above: Performed By: #### U AMIC ####[facility] Vtsdbxyqro[address] [place], [place] [address]Dr. Slick Broderick Hemoglobin Ql (U) MODERATE Abnormal NEGATIVE [facility] Comment on above: Performed By: #### U AMIC ####[facility] Lnrirscjnu22[address] [place], [place] [address]Dr. Slick Broderick Ketones Ql (U) Negative Normal NEGATIVE [facility] Comment on above: Performed By: #### U AMIC ####[facility] Jwsaejibop4812[address] [place], [place] [address]Dr. Slick Broderick LEUKOCYTES TRACE Abnormal NEGATIVE [facility] Comment on above: Performed By: #### U AMIC ####[facility] Vkdzchrqrl[address] [place], [place] [address]Dr. Slick Broderick MUCOUS NONE SEEN Normal NONE SEEN [facility] Comment on above: Performed By: #### U AMIC ####[facility] [address]hbwkb[address] [place] [address]Dr. Slick Broderick Nitrite Ql (U) Negative Normal NEGATIVE [facility] Comment on above: Performed By: #### U AMIC ####[facility] Oijdgiexqh05[address] [place] [address]Dr. Slick Broderick pH (U) 6.0 [pH] Normal 5-9 [facility] Comment on above: Performed By: #### U AMIC ####[facility] Vsndtvawxl66[address] [place] [address]Dr. Slick Broderick RBC 5-10 Abnormal 0-2 [facility] Comment on above: Performed By: #### U AMIC ####[facility] [address]izsahjfl[address] [place], [place] [address]Dr. Slick Broderick SPEC GRAVITY <=1.005 Abnormal 1.005-<=1.0 25 [place] [facility] Comment on above: Performed By: #### U AMIC ####[facility] Uoyayorixv[address] [place], [place] [address]Dr. Slick Broderick UA PROTEIN Negative Normal NEGATIVE/ TRACE [facility] Comment on above: Performed By: #### U AMIC ####[facility] Kcacoksvvj[address] [place], [place] [address]Dr. Slick Broderick Urobilinogen Qn (U) 0.2 {Hiren'U}/dL Normal 0.2 - 1. 0 [facility] Comment on above: Performed By: #### U AMIC ####[facility] Fasquoqopr[address] [place], [place] [address]Dr. Slick Broderick WBC 2-5 Abnormal NONE SEEN [facility] Comment on above: Performed By: #### U AMIC ####[facility] Ggodfxkhsj164[address] [place], [place] [address]Dr. Slick Broderick CBC AUTO DIFFon 03-27-2022 BASO # 0.0 103/ul Normal 0.0-0.1 [facility] Comment on above: Performed By: #### C BC ####[facility] Ofvqreuymr[address] [place], [place] [address]Dr. Slick Davie Basophils/100 WBC (Bld) 0.5 % Normal 0.2-2.0 [facility] Comment on above: Performed By: #### C BC ####[facility] Btbmvrxqep95[address] [place] [id number]. Slick Broderick EO # 0.4 103/ul Normal 0.0-0.7 [facility] Comment on above: Performed By: #### C BC ####[facility] Ngikugekqm4862 [place] [id number]. Slick Broderick Eosinophils/100 WBC (Bld) 5.2 % Normal 0.9-7.0 [facility] Comment on above: Performed By: #### C BC ####[facility] Lwizcpovhy5924 [place] [address]Dr. Slick Broderick Erythrocyte distribution width (RBC) [Ratio] 13.1 % Normal 11.0-15.0 [facility] Comment on above: Performed By: #### C BC ####[facility] Meaocnbgbk59[address] [place] [address]Dr. Slick Broderick Hematocrit (Bld) [Volume fraction] 24.7 % Critically low 36.0-48.0 [facility] Comment on above: Performed By: #### C BC ####[facility] Yfxaupuelk6812 [place] [id number]. Slick Broderick Hemoglobin (Bld) [Mass/Vol] 7.9 g/dL Critically low 12.0-16.0 [facility] Comment on above: Performed By: #### C BC ####[facility] Awvchboynr3030 [place] [id number]. Slick Broderick IG # 0.06 10e3/ul Critically high 0.00-0.03 [facility] Comment on above: Performed By: #### C BC ####[facility] Rargtwqihm4349 [place] [id number]. Slick Broderick IG % 0.8 % Critically high 0.0-0.5 [facility] Comment on above: Performed By: #### C BC ####[facility] Gjgzmfcnsp[address] [place], [place] [address]Dr. Slick Broderick LYMPH # 0.9 103/ul Critically low 1.2-3.8 The [facility] Comment on above: Performed By: #### C BC ####[facility] Pfyrkyrcio9797 [place] [address]Dr. Slick Broderick Lymphocytes/100 WBC (Bld) 11.1 % Critically low 20.5-60.0 [facility] Comment on above: Performed By: #### C BC ####[facility] Pglkeasycy1310 [place] [address]Dr. Meaganwendie Broderick MANUAL DIFF REQ NO Normal [facility] Comment on above: Performed By: #### C BC ####[facility] Rhnmtcqpia4367 [place] [id number]. Meaganwendie Broderick MCH (RBC) [Entitic mass] 29.7 pg Normal 26.7-34.0 [facility] Comment on above: Performed By: #### C BC ####[facility] Wsdlqlcjdy8[address] [place], [place] [address]Dr. Slick Davie MCHC (RBC) [Mass/Vol] 32.0 g/dL Normal 29.9-35.2 [facility] Comment on above: Performed By: #### C BC ####[facility] Fayguknyjx8463 [place] [address]Dr. Slick Davie MCV (RBC) [Entitic vol] 92.9 fL Normal 81.0-99.0 [facility] Comment on above: Performed By: #### C BC ####[facility] Koqwqmbcvh8606 [place] [address]Dr. Slick Broderick MONO # 0.8 103/ul Normal 0.3-0.8 [facility] Comment on above: Performed By: #### C BC ####[facility] Jvqoiivgbc8819 [place] [address]Dr. Meaganwendie Broderick Monocytes/100 WBC (Bld) 9.5 % Normal 1.7-12.0 [facility] Comment on above: Performed By: #### C BC ####[facility] Jaqzpyikuk[address] [place], [place] [address]Dr. Slick Broderick NEUT # 5.8 103/ul Normal 1.4-6.5 [facility] Comment on above: Performed By: #### C BC ####[facility] Rbxepqryts8093 [place] [address]Dr. Slick Broderick Neutrophils/100 WBC (Bld) 72.9 % Normal 43.0-75.0 [facility] Comment on above: Performed By: #### C BC ####[facility] Jjczstylhh0771 [place] [address]Dr. Slick Broderick Platelet mean volume (Bld) [Entitic vol] 8.9 fL Critically low 9.5-13.5 [facility] Comment on above: Performed By: #### C BC ####[facility] Ktgjazlnjj7200 [place] [address]Dr. Slick Davie PLT 220 103/ul Normal 150-450 [facility] Comment on above: Performed By: #### C BC ####[facility] Acncwfbapy1879 [place] [address]Dr. Slick Broderick RBC 2.66 106/ul Critically low 4.20-5.40 [facility] Comment on above: Performed By: #### C BC ####[facility] Mtqvhevtrg8736 [place] [address]Dr. Slick Broderick WBC 7.9 103/ul Normal 4.0-11.0 [facility] Comment on above: Performed By: #### C BC ####[facility] Kbqebjarzi3259 [place] [phone]. Slick Broderick OCC BLD IMMUNO SCREENon 03-12 OCCULT BLOOD Positive Abnormal NEGATIVE [facility] Comment on above: Performed By: #### O BSCRN ####[facility] Skxadczmuk6419 [place] [phone]. Slick Broderick PROF 14(COMP METB)on 022 Albumin [Mass/Vol] 3.2 g/dL Critically low 3.4-5.0 [facility] Comment on above: Performed By: #### C MP ####[facility] Plduysvfjf4422 [place] [phone]. Slick Broderick Albumin/Globulin [Mass ratio] 0.9 {ratio} Normal [facility] Comment on above: Performed By: #### C MP ####[facility] Qpusrcykcy9694 [place] [address]Dr. Slick Broderick ALP [Catalytic activity/Vol] 101 U/L Normal 46-116 [facility] Comment on above: Performed By: #### C MP ####[facility] Bplkyhaume3507 [place] [address]Dr. Slick Broderick ALT [Catalytic activity/Vol] 28 U/L Normal 14-59 [facility] Comment on above: Performed By: #### C MP ####[facility] Ainvfjdfzx0753 [place] [address]Dr. Slick Broderick Anion gap [Moles/Vol] 11.5 mmol/L Normal Th e [facility] Comment on above: Performed By: #### C MP ####[facility] Vmmepyuxgp[address] [place], [place] [address]Dr. Slick Broderick AST [Catalytic activity/Vol] 21 U/L Normal 15-37 [facility] Comment on above: Performed By: #### C MP ####[facility] Mdpxczpemy[address] [place], [place] [address]Dr. Slick Broderick Bilirubin [Mass/Vol] 0.2 mg/dL Normal 0.2-1.0 [facility] Comment on above: Performed By: #### C MP ####[facility] Bysmiokmrb[address] [place], [place] [address]Dr. Slick Broderick Calcium [Mass/Vol] 9.3 mg/dL Normal 8.5-10.1 [facility] Comment on above: Performed By: #### C MP ####[facility] Mzvyehuhgn6974 [place] [address]Dr. Slick Broderick Chloride [Moles/Vol] 93 mmol/L Critically low 98-107 [facility] Comment on above: Performed By: #### C MP ####[facility] Fwrhfptjxe2374 [place] [address]Dr. Slick Broderick CO2 [Moles/Vol] 27.3 mmol/L Normal 21.0-32.0 [facility] Comment on above: Performed By: #### C MP ####[facility] Etwzeospqe0127 [place] [phone]. Slick Broderick Creatinine [Mass/Vol] 1.98 mg/dL Critically high 0.55-1.02 [facility] Comment on above: Performed By: #### C MP ####[facility] Cvxuxbtnum3618 [place] [phone]. Slick Broderick EGFR-AF IVORIAN 30 mL/min/1.73m2 Critically low >=60 [facility] Comment on above: Performed By: #### C MP ####[facility] Blumkjkffu9832 [place] [phone]. Slick Broderick EGFR-NON AF IVORIAN 25 mL/min/1.73m2 Critically low >=60 [facility] Comment on above: Performed By: #### C MP ####[facility] Arvuvumvzc3933 [place] [phone]. Slick Broderick Globulin (S) [Mass/Vol] 3.6 g/dL Normal [facility] Comment on above: Performed By: #### C MP ####[facility] Cbgvrymisi3569 [place] [phone]. Slick Broderick Glucose [Mass/Vol] 123 mg/dL Critically high 74-106 [facility] Comment on above: Performed By: #### C MP ####[facility] Vfdbzixbud9919 [place] [phone]. Slick Broderick Potassium [Moles/Vol] 3.8 mmol/L Normal 3.5-5.1 [facility] Comment on above: Performed By: #### C MP ####[facility] Osqmupogjt8636 [place] [id number]. Slick Broderick Protein [Mass/Vol] 6.8 g/dL Normal 6.4-8.2 [facility] Comment on above: Performed By: #### C MP ####[facility] Gkevcieqoq9124 [place] [phone]. Slick Broderick Sodium [Moles/Vol] 128 mmol/L Critically low 136-145 [facility] Comment on above: Performed By: #### C MP ####[facility] Uklegiscwn5331 [place], [place] [address]Hn. Slick Broderick Urea nitrogen [Mass/Vol] 64.0 mg/dL Critically high 7.0-18.0 [facility] Comment on above: Performed By: #### C MP ####[facility] Slhguckosg9899 [place], [place] [address]Ok. Slick Broderick Urea nitrogen/Creatinine [Mass ratio] 32.3 mg/mg Normal [facility] Comment on above: Performed By: #### C MP ####[facility] Lkqftqgwed5558 [place], [place] [address]Yw. Slick Broderick TROPONIN, HIGH SENSITIVITYon 03-27-2022 HSTROP 9.0 pg/mL Normal 4.0-51.3 [facility] Comment on above: Result Comment: CUT- OFF POINTS HAVE BEEN ESTABLISHED BASED ON THE FOURTH UNIVERSAL DEFINITIONS OF MYOCARDIALINFARCTION. THE UPPER REFERENCE LIMIT (URL) OF TROPONIN, DEFINED THE 99TH PERCENTILE OFcTnI DISTRIBUTION IN A REFERENCE POPULATION, HAS BEEN CONFIRMED THE DECISION THRESHOLDFOR [place] DIAGNOSIS. Performed By: #### H STROPN ####[facility] Kxnnwzpsqw7602 [place] [phone]. Slick Broderick Progress Noteson 03-24-2022 Support Clerk Authentication Interface Message Text 1:32 AM EMERGENCY TRIAGE, TREAT AND TRANSPORT (ET3) DOCUMENTATION OF TELEHEALTH VISIT Date / Time: 03/24/2022 / 1:32 AM Name: Linda Nascimento : 1950 SSN: [id number] EMS Agency: [facility] [] Verbal consent obtained [x] [...] Completed by: Chidi Conte MD Normal The [email or web address] [facility] T4, T3U, FTI LABCORPon 02-12 Free Thyroxine Index 2.3 Normal 1.2-4.9 [facility] Comment on above: Performed By: #### T HYLC ####[facility] Ctttcyiyes5[address] [place], [place] [address]Yj. Slick [facility] T3 Uptake 31 % Normal 24-39 [facility] Comment on above: Performed By: #### T HYLC ####[facility] Qgmtxwkpjq2873 [place], [place] [address]Bj. Meaganwendie Broderick T4 [Mass/Vol] 7.4 ug/dL Normal 4.5-12.[address] [facility] Comment on above: Performed By: #### T HYLC ####[facility] Qpfppqzwuz2125 [place], [place] [address]Ao. Slick Broderick VIT D 25-OH LABCORPon 2021 Vitamin D, 25-Hydroxy 58.7 ng/mL Normal 30.0-100.0 [facility] Comment on above: Result Comment: Karla min D deficiency has been defined by the [place] [employer] and an Endocrine Society practice guideline as alevel of serum 25-OH vitamin D less than 20 ng/mL (1,2).The Endocrine Society went on to further define vitamin Dinsufficiency as a level between 21 and 29 ng/mL (2).1. IOM ([place] [employer]). 2010. Dietary reference intakes for calcium and D. [place]: The National Academies Press.2. Maryam MF, Franklin PENA, Ángela SCHAEFER, et al. Evaluation, treatment, and prevention of vitamin D deficiency: an Endocrine Society clinical practice guideline. JCEM. 2010; 96(7):1911-30. Performed By: #### V ITADLC ####[facility] Tfdmesajxk7602 [place] [address]Dr. Slick Davie CBC AUTO DIFFon 02-11-2022 BASO # 0.0 103/ul Normal 0.0-0.1 [facility] Comment on above: Performed By: #### C BC ####[facility] Chavzoohpl6994 [place] [address]Dr. Slick Broderick Basophils/100 WBC (Bld) 0.6 % Normal 0.2-2.0 [facility] Comment on above: Performed By: #### C BC ####[facility] Zzywwrcg[address] [place], [place] [address]Dr. Slick Broderick EO # 0.3 103/ul Normal 0.0-0.7 [facility] Comment on above: Performed By: #### C BC ####[facility] Yxdoejlhhb1848 [place] [address]Dr. Slick Broderick Eosinophils/100 WBC (Bld) 4.6 % Normal 0.9-7.0 [facility] Comment on above: Performed By: #### C BC ####[facility] Etqgwoopwn6827 [place] [address]Dr. Meaganwendie Broderick Erythrocyte distribution width (RBC) [Ratio] 14.0 % Normal 11.0-15.0 [facility] Comment on above: Performed By: #### C BC ####[facility] Fbthdifdfu1159 [place] [address]Dr. Slick Broderick Hematocrit (Bld) [Volume fraction] 28.4 % Critically low 36.0-48.0 [facility] Comment on above: Performed By: #### C BC ####[facility] Cjgvmjamwf2814 [place] [address]Dr. Slick Broderick Hemoglobin (Bld) [Mass/Vol] 9.3 g/dL Critically low 12.0-16.0 [facility] Comment on above: Performed By: #### C BC ####[facility] Dpvfubchac1374 [place] [address]Dr. Slick Broderick IG # 0.03 10e3/ul Normal 0.00-0.03 [facility] Comment on above: Performed By: #### C BC ####[facility] Meftifegez8916 [place] [address]Dr. Slick Broderick IG % 0.5 % Normal 0.0-0.5 [facility] Comment on above: Performed By: #### C BC ####[facility] Bmrrruiegm09[address] [place] [address]Dr. Slick Broderick LYMPH # 0.6 103/ul Critically low 1.2-3.8 The [facility] Comment on above: Performed By: #### C BC ####[facility] Chkpijmlwv3175 [place] [address]Dr. Slick Broderick Lymphocytes/100 WBC (Bld) 9.5 % Critically low 20.5-60.0 [facility] Comment on above: Performed By: #### C BC ####[facility] Wyxrqqyoex1624 [place] [id number]. Slick Broderick MANUAL DIFF REQ NO Normal [facility] Comment on above: Performed By: #### C BC ####[facility] Yfljbgolje9974 [place] [address]Dr. Slick Broderick MCH (RBC) [Entitic mass] 30.5 pg Normal 26.7-34.0 [facility] Comment on above: Performed By: #### C BC ####[facility] Uveciwsalo1630 [place] [address]Dr. Slick Broderick MCHC (RBC) [Mass/Vol] 32.7 g/dL Normal 29.9-35.2 [facility] Comment on above: Performed By: #### C BC ####[facility] Wiebslwbkz6451 [place] [address]Dr. Slick Broderick MCV (RBC) [Entitic vol] 93.1 fL Normal 81.0-99.0 [facility] Comment on above: Performed By: #### C BC ####[facility] Oheuprogch1786 [place] [address]Dr. Slick Broderick MONO # 0.6 103/ul Normal 0.3-0.8 [facility] Comment on above: Performed By: #### C BC ####[facility] Nweupildws3543 [place] [address]Dr. Slick Broderick Monocytes/100 WBC (Bld) 8.4 % Normal 1.7-12.0 [facility] Comment on above: Performed By: #### C BC ####[facility] Lswfhpmffi4534 [place] [address]Dr. Slick Broderick NEUT # 5.0 103/ul Normal 1.4-6.5 [facility] Comment on above: Performed By: #### C BC ####[facility] Bdpgzgoccq9074 [place] [address]Dr. Slick Broderick Neutrophils/100 WBC (Bld) 76.4 % Critically high 43.0-75.0 [facility] Comment on above: Performed By: #### C BC ####[facility] Thsslmphkg6046 [place] [address]Dr. Slick Broderick Platelet mean volume (Bld) [Entitic vol] 9.3 fL Critically low 9.5-13.5 [facility] Comment on above: Performed By: #### C BC ####[facility] Xdtvkekvea9311 [place] [address]Dr. Slick Broderick PLT 192 103/ul Normal 150-450 [facility] Comment on above: Performed By: #### C BC ####[facility] Gdksqblajz2638 [place] [address]Dr. Slick Broderick RBC 3.05 106/ul Critically low 4.20-5.40 [facility] Comment on above: Performed By: #### C BC ####[facility] Xhleixmpkb9217 [place], [place] [address]Wa. Slick Broderick WBC 6.6 103/ul Normal 4.0-11.0 [facility] Comment on above: Performed By: #### C BC ####[facility] Ozoitqtcdm9271 [place], [place] [address]Fm. Slick Broderick IRONon 02-11-2022 Iron [Mass/Vol] 62.0 ug/dL Normal 50.0-170.0 [facility] Comment on above: Performed By: #### I YUNIOR ####[facility] Ldmkteiaww7537 [place] [id number]. Slick Broderick LIPID PROFILEon 02-11-2022 CHOL-HDL RATIO NORM SEE BELOW Normal [facility] Comment on above: Result Comment: 3.3 - 4.4 LOW RISK 4.4 - 7.1 AVERAGE RISK 7.1 - 11.0 MODERATE RISK >11.0 HIGH RISK Performed By: #### C MP, LIPID, TSH ####[facility] Wefakkpmsp7398 [place] [phone]. Slick Broderick Cholesterol [Mass/Vol] 204 mg/dL Critically high <=200 [facility] Comment on above: Performed By: #### C MP, LIPID, TSH ####[facility] Zeupjamecm7245 [place] [address]Dr. Slick Broderick Cholesterol in HDL [Mass/Vol] 53 mg/dL Normal 40-60 [facility] Comment on above: Performed By: #### C MP, LIPID, TSH ####[facility] Jmoxyfunsh8407 [place] [address]Dr. Slick Broderick Cholesterol in LDL [Mass/Vol] 134.0 mg/dL Normal [facility] Comment on above: Performed By: #### C MP, LIPID, TSH ####[facility] Vniluirtmt0921 [place] [id number]. Slick Broderick Cholesterol.total/Corinne sterol in HDL [Mass ratio] 3.8 {ratio} Normal [facility] Comment on above: Performed By: #### C MP, LIPID, TSH ####[facility] Jvejxgcghi1558 [place] [address]Dr. Slick Broderick HDL NORMAL > or = 60 mg/dl - LOW CARDIOVASCULAR RISK <40 mg/dl - HIGH CARDIOVASCULAR RISK Normal [facility] Comment on above: Performed By: #### C MP, LIPID, TSH ####[facility] Ttitdbhnxp8042 [place] [address]Dr. Slick Broderick LDL CALC NORMAL SEE BELOW Normal [facility] Comment on above: Result Comment: <100 mg/dl OPTIMAL 100 - 129 mg/dl NEAR OR ABOVE OPTIMAL 130 - 159 mg/dl BORDERLINE HIGH 160 - 189 mg/dl HIGH >190 mg/dl VERY HIGH Performed By: #### C MP, LIPID, TSH ####[facility] Lfazdehrbp3899 [place] [address]Dr. Slick Broderick Triglyceride [Mass/Vol] 85 mg/dL Normal <=150 T [facility] Comment on above: Performed By: #### C MP, LIPID, TSH ####[facility] Kxhpudiiag2115 [place] [address]Dr. Slick Broderick VLDL CALC 17.0 mg/dL Normal [facility] Comment on above: Performed By: #### C MP, LIPID, TSH ####[facility] Ntqubkdtsn6032 [place] [address]Dr. Slick Broderick PROF 14(COMP METB)on 022 Albumin [Mass/Vol] 3.5 g/dL Normal 3.4-5.0 [facility] Comment on above: Performed By: #### C MP, LIPID, TSH ####[facility] Kozecwwssb7856 [place] [address]Dr. Slick Broderick Albumin/Globulin [Mass ratio] 0.9 {ratio} Normal [facility] Comment on above: Performed By: #### C MP, LIPID, TSH ####[facility] Bkshtapnic2334 [place] [address]Dr. Slick Broderick ALP [Catalytic activity/Vol] 93 U/L Normal 46-116 [facility] Comment on above: Performed By: #### C MP, LIPID, TSH ####[facility] Rtmvkfavyh1901 [place] [address]Dr. Slick Broderick ALT [Catalytic activity/Vol] 21 U/L Normal 14-59 [facility] Comment on above: Performed By: #### C MP, LIPID, TSH ####[facility] Wxbvbtnosc8061 [place] [address]Dr. Slick Broderick Anion gap [Moles/Vol] 13.7 mmol/L Normal Th e [facility] Comment on above: Performed By: #### C MP, LIPID, TSH ####[facility] Plzwpyguyo3442 [place] [address]Dr. Slick Broderick AST [Catalytic activity/Vol] 13 U/L Critically low 15-37 [facility] Comment on above: Performed By: #### C MP, LIPID, TSH ####[facility] Fiwabmbhvj8240 [place] [address]Dr. Slick Broderick Bilirubin [Mass/Vol] 0.4 mg/dL Normal 0.2-1.0 [facility] Comment on above: Performed By: #### C MP, LIPID, TSH ####[facility] Ucraorghdu9676 [place] [address]Dr. Slick Broderick Calcium [Mass/Vol] 9.2 mg/dL Normal 8.5-10.1 [facility] Comment on above: Performed By: #### C MP, LIPID, TSH ####[facility] Cryvndukgv7106 [place] [address]Dr. Slick Broderick Chloride [Moles/Vol] 96 mmol/L Critically low 98-107 [facility] Comment on above: Performed By: #### C MP, LIPID, TSH ####[facility] Dcdcxpecsd3581 [place] [address]Dr. Slick Broderick CO2 [Moles/Vol] 27.8 mmol/L Normal 21.0-32.0 [facility] Comment on above: Performed By: #### C MP, LIPID, TSH ####[facility] [address] [place] [address]Dr. Slick Broderick Creatinine [Mass/Vol] 1.52 mg/dL Critically high 0.55-1.02 [facility] Comment on above: Performed By: #### C MP, LIPID, TSH ####[facility] [address]ogerrqlep[address] [place] [address]Dr. Slick Broderick EGFR-AF IVORIAN 41 mL/min/1.73m2 Critically low >=60 [facility] Comment on above: Performed By: #### C MP, LIPID, TSH ####[facility] Ktlf[address]miqf[address] [place] [address]Dr. Slick Broderick EGFR-NON AF IVORIAN 34 mL/min/1.73m2 Critically low >=60 [facility] Comment on above: Performed By: #### C MP, LIPID, TSH ####[facility] Skdziuphet[address] [place] [address]Dr. Slick Davie Globulin (S) [Mass/Vol] 3.7 g/dL Normal [facility] Comment on above: Performed By: #### C MP, LIPID, TSH ####[facility] Bdejkslkkm[address] [place], [place] [address]Dr. Slick Broderick Glucose [Mass/Vol] 96 mg/dL Normal 74-106 [facility] Comment on above: Performed By: #### C MP, LIPID, TSH ####[facility] Ztdnveehvs[address] [place], [place] [address]Dr. Slick Broderick Potassium [Moles/Vol] 4.5 mmol/L Normal 3.5-5.1 [facility] Comment on above: Performed By: #### C MP, LIPID, TSH ####[facility] Psyupdgemo[address] [place], [place] [address]Dr. Meaganwendie Davie Protein [Mass/Vol] 7.2 g/dL Normal 6.4-8.2 [facility] Comment on above: Performed By: #### C MP, LIPID, TSH ####[facility] [address]utfejarar[address] [place] [address]Dr. Meaganwendie Broderick Sodium [Moles/Vol] 133 mmol/L Critically low 136-145 [facility] Comment on above: Performed By: #### C MP, LIPID, TSH ####[facility] Ldbneajvns[address] [place], [place] [address]Dr. Slick Broderick Urea nitrogen [Mass/Vol] 37.0 mg/dL Critically high 7.0-18.0 [facility] Comment on above: Performed By: #### C MP, LIPID, TSH ####[facility] Lafnvrmvre[address] [place] [id number]. Slick Broderick Urea nitrogen/Creatinine [Mass ratio] 24.3 mg/mg Normal [facility] Comment on above: Performed By: #### C MP, LIPID, TSH ####[facility] Enmvrkhvdo[address] [place] [id number]. Slick Broderick TSHon 02-11-2022 TSH 3.993 uIU/mL Critically high 0.358-3.740 [facility] Comment on above: Performed By: #### C MP, LIPID, TSH ####[facility] Efppxashgf87[address] [place] [id number]. Slick Broderick PRBC LEUKOREDUCEDon 12-18-19 PRBC LEUKOREDUCED Normal [facility] Comment on above: Performed By: #### P RBC ####[facility] Yrpyiufoee[address] [place] [address]Dr. Slick Broderick PRBC LEUKOREDUCED Cross Match Result Compatible Unit Blood Type O Pos Unit Number [id number] Status Information Transfused Product ID Red Blood Cells Product Code [id number] [facility] Comment on above: Performed By: #### P RBC ####[facility] Joufegyhrd[address] [place] [address]Dr. Slick Broderick H PYLORI ANTIBODY IGGon H. PYLORI IGG ABS 0.18 Index Value Normal 0.00-0.79 [facility] Comment on above: Result Comment: Nega tive <0.80 Equivocal 0.80 - 0.89 Positive >0.89 Performed By: #### H PYLLC ####[facility] Jwcsdpwpai[address] [place], [place] [address]Dr. Slick Broderick BNPon 12-14-2021 Natriuretic peptide B (Bld) [Mass/Vol] 846.0 pg/mL Normal <=900.0 [facility] Comment on above: Performed By: #### C MP, BNP ####[facility] Elfgjeozjd[address] [place] [id number]. Slick Davie CBC AUTO DIFFon 12-14-2021 BASO # 0.1 103/ul Normal 0.0-0.1 [facility] Comment on above: Performed By: #### C BC ####[facility] Jmxibhfqlo[address] [place] [address]Dr. Meaganwendie Broderick Basophils/100 WBC (Bld) 0.7 % Normal 0.2-2.0 [facility] Comment on above: Performed By: #### C BC ####[facility] Ybofntpxln[address] [place], [place] [address]Dr. Slick Broderick EO # 0.3 103/ul Normal 0.0-0.7 [facility] Comment on above: Performed By: #### C BC ####[facility] Ysgrgptims9[address] [place], [place] [address]Dr. Slick Broderick Eosinophils/100 WBC (Bld) 4.6 % Normal 0.9-7.0 [facility] Comment on above: Performed By: #### C BC ####[facility] Xzyvuqtnwr1039[address] [place], [place] [address]Dr. Slick Davie Erythrocyte distribution width (RBC) [Ratio] 20.0 % Critically high 11.0-15.0 [facility] Comment on above: Performed By: #### C BC ####[facility] Byokxwebiy[address] [place], [place] [address]Dr. Slick Broderick Hematocrit (Bld) [Volume fraction] 29.1 % Critically low 36.0-48.0 [facility] Comment on above: Performed By: #### C BC ####[facility] Oxqwrozblf6[address] [place], [place] [address]Dr. Slick Broderick Hemoglobin (Bld) [Mass/Vol] 9.1 g/dL Critically low 12.0-16.0 [facility] Comment on above: Performed By: #### C BC ####[facility] Fmrrodatfy[address] [place], [place] [address]Dr. Slick Broderick IG # 0.06 10e3/ul Critically high 0.00-0.03 [facility] Comment on above: Performed By: #### C BC ####[facility] Xcawqgqwvf[address] [place] [address]DrEmma Broderick IG % 0.9 % Critically high 0.0-0.5 [facility] Comment on above: Performed By: #### C BC ####[facility] Ncjnpihmuh5[address] [place] [address]DrEmma Broderick LYMPH # 0.8 103/ul Critically low 1.2-3.8 [facility] Comment on above: Performed By: #### C BC ####[facility] Aidzfnumgf[address] [place] [address]DrEmma Broderick Lymphocytes/100 WBC (Bld) 11.2 % Critically low 20.5-60.0 [facility] Comment on above: Performed By: #### C BC ####[facility] P[address]hrtfdej[address] [place] [address]DrEmma Broderick MANUAL DIFF REQ NO Normal [facility] Comment on above: Performed By: #### C BC ####[facility] Xtfrwudvor[address] [place] [address]Dr. Slick Broderick MCH (RBC) [Entitic mass] 30.5 pg Normal 26.7-34.0 [facility] Comment on above: Performed By: #### C BC ####[facility] Nmekgjpchv[address] [place] [address]Dr. Slick Broderick MCHC (RBC) [Mass/Vol] 31.3 g/dL Normal 29.9-35.2 [facility] Comment on above: Performed By: #### C BC ####[facility] Ghvlhnrmpg[address] [place] [id number] Broderick MCV (RBC) [Entitic vol] 97.7 fL Normal 81.0-99.0 [facility] Comment on above: Performed By: #### C BC ####[facility] Yujuibhygm[address] [place] [address]DrEmma Broderick MONO # 0.7 103/ul Normal 0.3-0.8 [facility] Comment on above: Performed By: #### C BC ####[facility] Nkocrwimoq69[address] [place] [address]Dr. Slick Broderick Monocytes/100 WBC (Bld) 9.7 % Normal 1.7-12.0 [facility] Comment on above: Performed By: #### C BC ####[facility] Wsmsgksppx[address] [place] [address]Dr. Slick Broderick NEUT # 4.9 103/ul Normal 1.4-6.5 [facility] Comment on above: Performed By: #### C BC ####[facility] Mzdzckprwl4[address] [place] [address]Dr. Slick Broderick Neutrophils/100 WBC (Bld) 72.9 % Normal 43.0-75.0 [facility] Comment on above: Performed By: #### C BC ####[facility] Cwdefolwkt[address] [place], [place] [address]Dr. Slick Broderick Platelet mean volume (Bld) [Entitic vol] 8.9 fL Critically low 9.5-13.5 [facility] Comment on above: Performed By: #### C BC ####[facility] Zbexixopzw[address] [place], [place] [address]Dr. Slick Broderick PLT 239 103/ul Normal 150-450 [facility] Comment on above: Performed By: #### C BC ####[facility] Adtgclxvaz[address] [place] [address]Dr. Slick Broderick RBC 2.98 106/ul Critically low 4.20-5.40 [facility] Comment on above: Performed By: #### C BC ####[facility] Ezbaitzfbx7672 [place] [id number]. Slick Broderick WBC 6.8 103/ul Normal 4.0-11.0 [facility] Comment on above: Performed By: #### C BC ####[facility] Lmrmcronof74[address] [place] [id number]. Slick Broderick BASO # 0.1 103/ul Normal 0.0-0.1 [facility] Comment on above: Performed By: #### C BC ####[facility] Zuqcklrtnh34[address] [place] [address]Dr. Slick Broderick Basophils/100 WBC (Bld) 0.9 % Normal 0.2-2.0 [facility] Comment on above: Performed By: #### C BC ####[facility] Dmxwymluus[address] [place] [address]Dr. Meaganwendie Broderick EO # 0.3 103/ul Normal 0.0-0.7 [facility] Comment on above: Performed By: #### C BC ####[facility] Cilohsybcv[address] [place], [place] [address]Dr. Slick Davie Eosinophils/100 WBC (Bld) 4.9 % Normal 0.9-7.0 [facility] Comment on above: Performed By: #### C BC ####[facility] Skgxwqgvvy13[address] [place], [place] [address]Dr. Slick Davie Erythrocyte distribution width (RBC) [Ratio] 20.3 % Critically high 11.0-15.0 [facility] Comment on above: Performed By: #### C BC ####[facility] Gbtnvcwucv914[address] [place], [place] [address]Dr. Slick Broderick Hematocrit (Bld) [Volume fraction] 27.6 % Critically low 36.0-48.0 [facility] Comment on above: Performed By: #### C BC ####[facility] Jpsrstrapg[address] [place], [place] [address]Dr. Slick Broderick Hemoglobin (Bld) [Mass/Vol] 8.7 g/dL Critically low 12.0-16.0 [facility] Comment on above: Performed By: #### C BC ####[facility] Xmwijcbhdd9[address] [place], [place] [address]Dr. Meaganwendie Broderick IG # 0.05 10e3/ul Critically high 0.00-0.03 [facility] Comment on above: Performed By: #### C BC ####[facility] Hxxsbphuur[address] [place], [place] [address]Dr. Slick Broderick IG % 0.7 % Critically high 0.0-0.5 [facility] Comment on above: Performed By: #### C BC ####[facility] Yuhrckafqj44[address] [place] [address]DrEmma Broderick LYMPH # 0.9 103/ul Critically low 1.2-3.8 [facility] Comment on above: Performed By: #### C BC ####[facility] Xovmdjxpad8209 [place] [address]DrEmma Broderick Lymphocytes/100 WBC (Bld) 13.1 % Critically low 20.5-60.0 [facility] Comment on above: Performed By: #### C BC ####[facility] Voivnzagjj[address] [place], [place] [address]DrEmma Broderick MANUAL DIFF REQ NO Normal [facility] Comment on above: Performed By: #### C BC ####[facility] Okjyrdyhpb[address] [place], [place] [address]DrEmma Broderick MCH (RBC) [Entitic mass] 31.0 pg Normal 26.7-34.0 [facility] Comment on above: Performed By: #### C BC ####[facility] Thbobcthxr40[address] [place], [place] [address]Dr. Slick Broderick MCHC (RBC) [Mass/Vol] 31.5 g/dL Normal 29.9-35.2 [facility] Comment on above: Performed By: #### C BC ####[facility] Awbnvceiga46[address] [place] [address]Dr. Slick Broderick MCV (RBC) [Entitic vol] 98.2 fL Normal 81.0-99.0 [facility] Comment on above: Performed By: #### C BC ####[facility] Xzxpvjyast[address] [place], [place] [address]DrEmma Broderick MONO # 0.8 103/ul Normal 0.3-0.8 [facility] Comment on above: Performed By: #### C BC ####[facility] Bezrmxgutl26[address] [place], [place] [address]Dr. Slick Broderick Monocytes/100 WBC (Bld) 11.4 % Normal 1.7-12.0 [facility] Comment on above: Performed By: #### C BC ####[facility] Tlrwhbuegx4[address] [place] [address]Dr. Meaganwendie Broderick NEUT # 4.8 103/ul Normal 1.4-6.5 [facility] Comment on above: Performed By: #### C BC ####[facility] Trklbigjbi8147 [place] [address]DrEmma Broderick Neutrophils/100 WBC (Bld) 69.0 % Normal 43.0-75.0 [facility] Comment on above: Performed By: #### C BC ####[facility] Gtajpagcvj7083 [place] [address]DrEmma Broderick Platelet mean volume (Bld) [Entitic vol] 9.3 fL Critically low 9.5-13.5 [facility] Comment on above: Performed By: #### C BC ####[facility] Xjkwuyzslk[address] [place] [address]Dr. Slick Broderick PLT 229 103/ul Normal 150-450 [facility] Comment on above: Performed By: #### C BC ####[facility] Hsytlpgcgt[address] [place], [place] [address]DrEmma Broderick RBC 2.81 106/ul Critically low 4.20-5.40 [facility] Comment on above: Performed By: #### C BC ####[facility] Euikrmlmnj4806 [place] [address]DrEmma Broderick WBC 7.0 103/ul Normal 4.0-11.0 [facility] Comment on above: Performed By: #### C BC ####[facility] Psrclpobsl6338 [place] [address]DrEmma Broderick POINT OF CARE GLUCOSEon 07-0 -2021 Glucose [Mass/Vol] 255 mg/dL Critically high 74-106 [facility] Comment on above: Performed By: #### P OCGLUC ####[facility] Dpiigeioci8790 [place] [address]DrEmma Broderick PROF 14(COMP METB)on 022 Albumin [Mass/Vol] 2.3 g/dL Critically low 3.4-5.0 [facility] Comment on above: Performed By: #### C MP, BNP ####[facility] Ngopdfrwmr2169 [place] [address]Dr. Slick Broderick Albumin/Globulin [Mass ratio] 0.6 {ratio} Normal [facility] Comment on above: Performed By: #### C MP, BNP ####[facility] Plncvqvxvo37[address] [place] [address]Dr. Slick Broderick ALP [Catalytic activity/Vol] 94 U/L Normal 46-116 [facility] Comment on above: Performed By: #### C MP, BNP ####[facility] Qsmerdagbq1605 [place] [address]Dr. Slick Broderick ALT [Catalytic activity/Vol] 17 U/L Normal 14-59 [facility] Comment on above: Performed By: #### C MP, BNP ####[facility] Ppqjuykydu3882 [place] [address]Dr. Slick Broderick Anion gap [Moles/Vol] 11.6 mmol/L Normal [facility] Comment on above: Performed By: #### C MP, BNP ####[facility] Zskwmsngwo5963 [place] [address]Dr. Slick Broderick AST [Catalytic activity/Vol] 13 U/L Critically low 15-37 [facility] Comment on above: Performed By: #### C MP, BNP ####[facility] Zwppnikhzm5822 [place] [address]Dr. Slick Broderick Bilirubin [Mass/Vol] 0.3 mg/dL Normal 0.2-1.0 [facility] Comment on above: Performed By: #### C MP, BNP ####[facility] Lqvvmuujff2134 [place] [address]Dr. Slick Broderick Calcium [Mass/Vol] 7.9 mg/dL Critically low 8.5-10.1 [facility] Comment on above: Performed By: #### C MP, BNP ####[facility] Qcxgawnpwb7173 [place] [id number]. Slick Broderick Chloride [Moles/Vol] 104 mmol/L Normal 98-107 [facility] Comment on above: Performed By: #### C MP, BNP ####[facility] Stgwfqnyip[address] [place], [place] [address]Dr. Slick Broderick CO2 [Moles/Vol] 25.1 mmol/L Normal 21.0-32.0 [facility] Comment on above: Performed By: #### C MP, BNP ####[facility] Cghubisgny[address] [place], [place] [address]Dr. Slick Broderick Creatinine [Mass/Vol] 1.64 mg/dL Critically high 0.55-1.02 [facility] Comment on above: Performed By: #### C MP, BNP ####[facility] Gytwhlcfdq[address] [place], [place] [address]Dr. Slick Broderick EGFR-AF IVORIAN 37 mL/min/1.73m2 Critically low >=60 [facility] Comment on above: Performed By: #### C MP, BNP ####[facility] Nnvbbracqx8[address] [place], [place] [address]Dr. Slick Broderick EGFR-NON AF IVORIAN 31 mL/min/1.73m2 Critically low >=60 [facility] Comment on above: Performed By: #### C MP, BNP ####[facility] Qajryfhdzt[address] [place], [place] [address]Dr. Slick Broderick Globulin (S) [Mass/Vol] 3.6 g/dL Normal [facility] Comment on above: Performed By: #### C MP, BNP ####[facility] Laysvveypr7136 [place] [address]Dr. Slick Broderick Glucose [Mass/Vol] 100 mg/dL Normal 74-106 [facility] Comment on above: Performed By: #### C MP, BNP ####[facility] Ainjymoexf62[address] [place], [place] [address]Dr. Slick Davie Potassium [Moles/Vol] 4.7 mmol/L Normal 3.5-5.1 [facility] Comment on above: Performed By: #### C MP, BNP ####[facility] Morznbtzzn1773 [place] [address]Dr. Slick Broderick Protein [Mass/Vol] 5.9 g/dL Critically low 6.4-8.2 [facility] Comment on above: Performed By: #### C MP, BNP ####[facility] Vehfrskrbo679[address] [place], [place] [address]Dr. Slick Broderick Sodium [Moles/Vol] 136 mmol/L Normal 136-145 [facility] Comment on above: Performed By: #### C MP, BNP ####[facility] Iechutenow5[address] [place], [place] [address]Dr. Slick Broderick Urea nitrogen [Mass/Vol] 27.0 mg/dL Critically high 7.0-18.0 [facility] Comment on above: Performed By: #### C MP, BNP ####[facility] Jyjegkaqap725[address] [place], [place] [address]Dr. Slick Davie Urea nitrogen/Creatinine [Mass ratio] 16.5 mg/mg Normal [facility] Comment on above: Performed By: #### C MP, BNP ####[facility] Rrthjroqpw46[address] [place], [place] [address]Dr. Slick Broderick CBC AUTO DIFFon 12-13-2021 BASO # 0.0 103/ul Normal 0.0-0.1 [facility] Comment on above: Performed By: #### C BC ####[facility] Otmcjdlstu836[address] [place], [place] [address]Dr. Slick Davie Basophils/100 WBC (Bld) 0.5 % Normal 0.2-2.0 [facility] Comment on above: Performed By: #### C BC ####[facility] Nlmqhhqxsg593[address] [place], [place] [address]Dr. Meaganwendie Broderick EO # 0.3 103/ul Normal 0.0-0.7 [facility] Comment on above: Performed By: #### C BC ####[facility] Ofisiqyzac4127[address] [place], [place] [address]Dr. Slick Davie Eosinophils/100 WBC (Bld) 4.4 % Normal 0.9-7.0 [facility] Comment on above: Performed By: #### C BC ####[facility] Aqfrsputzh96[address] [place] [address]Dr. Slick Broderick Erythrocyte distribution width (RBC) [Ratio] 20.5 % Critically high 11.0-15.0 [facility] Comment on above: Performed By: #### C BC ####[facility] Spkogknhst4[address] [place] [address]Dr. Meaganwendie Broderick Hematocrit (Bld) [Volume fraction] 29.5 % Critically low 36.0-48.0 [facility] Comment on above: Performed By: #### C BC ####[facility] Mqemqbvynq607[address] [place], [place] [address]Dr. Slick Broderick Hemoglobin (Bld) [Mass/Vol] 9.3 g/dL Critically low 12.0-16.0 [facility] Comment on above: Result Comment: post transfusion Performed By: #### C BC ####[facility] Sllqhzcmsk[address] [place], [place] [address]Dr. Slick Broderick IG # 0.07 10e3/ul Critically high 0.00-0.03 [facility] Comment on above: Performed By: #### C BC ####[facility] Nybqxodypj798[address] [place], [place] [address]Dr. Slick Broderick IG % 0.9 % Critically high 0.0-0.5 [facility] Comment on above: Performed By: #### C BC ####[facility] Cvbfjepwjf[address] [place], [place] [address]DrEmma Broderick LYMPH # 0.9 103/ul Critically low 1.2-3.8 [facility] Comment on above: Performed By: #### C BC ####[facility] Jxqvruyytz[address] [place], [place] [address]Dr. Slick Davie Lymphocytes/100 WBC (Bld) 11.5 % Critically low 20.5-60.0 [facility] Comment on above: Performed By: #### C BC ####[facility] Bpxsfr[address]dw[address] [place] [address]. Slick Broderick MANUAL DIFF REQ NO Normal [facility] Comment on above: Performed By: #### C BC ####[facility] Ktrejzxrvy48[address] [place] [address]Dr. Slick Davie MCH (RBC) [Entitic mass] 30.9 pg Normal 26.7-34.0 [facility] Comment on above: Performed By: #### C BC ####[facility] Zkqrtglgcn[address] [place], [place] [address]Dr. Slick Davie MCHC (RBC) [Mass/Vol] 31.5 g/dL Normal 29.9-35.2 [facility] Comment on above: Performed By: #### C BC ####[facility] Yyxpphgrsp[address] [place], [place] [address]Dr. Slick Broderick MCV (RBC) [Entitic vol] 98.0 fL Normal 81.0-99.0 [facility] Comment on above: Performed By: #### C BC ####[facility] Xnvykqfjxa[address] [place], [place] [address]Dr. Slick Broderick MONO # 0.6 103/ul Normal 0.3-0.8 [facility] Comment on above: Performed By: #### C BC ####[facility] Kyilbvrxyl[address] [place], [place] [address]Dr. Slick Broderick Monocytes/100 WBC (Bld) 8.6 % Normal 1.7-12.0 [facility] Comment on above: Performed By: #### C BC ####[facility] [address]jstkrdnzj[address] [place], [place] [address]Dr. Slick Broderick NEUT # 5.5 103/ul Normal 1.4-6.5 [facility] Comment on above: Performed By: #### C BC ####[facility] Ribumhsqzi[address] [place], [place] [address]Dr. Slick Broderick Neutrophils/100 WBC (Bld) 74.1 % Normal 43.0-75.0 [facility] Comment on above: Performed By: #### C BC ####[facility] Saxijtoxef[address] [place], [place] [address]Dr. Slick Broderick Platelet mean volume (Bld) [Entitic vol] 9.0 fL Critically low 9.5-13.5 [facility] Comment on above: Performed By: #### C BC ####[facility] [address] [place] [address]Dr. Slick Broderick PLT 231 103/ul Normal 150-450 [facility] Comment on above: Performed By: #### C BC ####[facility] Ncdryoyabr[address] [place], [place] [address]Dr. Slick Broderick RBC 3.01 106/ul Critically low 4.20-5.40 [facility] Comment on above: Performed By: #### C BC ####[facility] Fplodjhyjg[address] [place], [place] [address]Dr. Slick Davie WBC 7.5 103/ul Normal 4.0-11.0 [facility] Comment on above: Performed By: #### C BC ####[facility] Roagdddvkz049[address] [place], [place] [address]Dr. Slick Davie BASO # 0.0 103/ul Normal 0.0-0.1 [facility] Comment on above: Performed By: #### C BC ####[facility] Tbgaobqhqj56[address] [place], [place] [address]Dr. Slick Davie Basophils/100 WBC (Bld) 0.3 % Normal 0.2-2.0 [facility] Comment on above: Performed By: #### C BC ####[facility] Ldcdiwxmbd06[address] [place], [place] [address]Dr. Slick Davie EO # 0.3 103/ul Normal 0.0-0.7 [facility] Comment on above: Performed By: #### C BC ####[facility] Ywtercryuo349[address] [place], [place] [address]Dr. Slick Davie Eosinophils/100 WBC (Bld) 3.8 % Normal 0.9-7.0 [facility] Comment on above: Performed By: #### C BC ####[facility] Darkqeatrq274[address] [place], [place] [address]Dr. Slick Davie Erythrocyte distribution width (RBC) [Ratio] 17.4 % Critically high 11.0-15.0 [facility] Comment on above: Performed By: #### C BC ####[facility] [address]otm[address] [place] [address]Dr. Slick Broderick Hematocrit (Bld) [Volume fraction] 22.4 % Critically low 36.0-48.0 [facility] Comment on above: Result Comment: Test Repeated Critical Value Verified Performed By: #### C BC ####[facility] Rwcjpybmqh48[address] [place] [address]Dr. Slick Broderick Hemoglobin (Bld) [Mass/Vol] 7.1 g/dL Critically low 12.0-16.0 [facility] Comment on above: Performed By: #### C BC ####[facility] Qgejfrqtnr15[address] [place] [address]Dr. Slick Davie IG # 0.06 10e3/ul Critically high 0.00-0.03 [facility] Comment on above: Performed By: #### C BC ####[facility] Gtoomfvrij[address] [place] [id number]. Meaganwendie Broderick IG % 0.8 % Critically high 0.0-0.5 [facility] Comment on above: Performed By: #### C BC ####[facility] Skypozpigv[address] [place], [place] [address]Dr. Slick Davie LYMPH # 0.8 103/ul Critically low 1.2-3.8 [facility] Comment on above: Performed By: #### C BC ####[facility] Tazntvwfpd78[address] [place] [id number]. Slick Davie Lymphocytes/100 WBC (Bld) 10.7 % Critically low 20.5-60.0 [facility] Comment on above: Performed By: #### C BC ####[facility] Awypzlhdwp[address] [place] [address]Dr. Slick Davie MANUAL DIFF REQ NO Normal [facility] Comment on above: Performed By: #### C BC ####[facility] Wygvvhenqp6[address] [place], [place] [address]Dr. Slick Broderick MCH (RBC) [Entitic mass] 32.3 pg Normal 26.7-34.0 [facility] Comment on above: Performed By: #### C BC ####[facility] Dvfzyswtue65[address] [place] [address]Dr. Slick Broderick MCHC (RBC) [Mass/Vol] 31.7 g/dL Normal 29.9-35.2 [facility] Comment on above: Performed By: #### C BC ####[facility] Oncqkunkle[address] [place] [address]Dr. Slick Broderick MCV (RBC) [Entitic vol] 101.8 fL Critically high 81.0-99 .0 [facility] Comment on above: Performed By: #### C BC ####[facility] Ebxmkylejj77[address] [place] [address]Dr. Slick Davie MONO # 0.8 103/ul Normal 0.3-0.8 [facility] Comment on above: Performed By: #### C BC ####[facility] Wjdgwzslyj37[address] [place] [address]Dr. Slick Davie Monocytes/100 WBC (Bld) 10.7 % Normal 1.7-12.0 [facility] Comment on above: Performed By: #### C BC ####[facility] Tcttclklnn[address] [place] [address]Dr. Slick Broderick NEUT # 5.6 103/ul Normal 1.4-6.5 [facility] Comment on above: Performed By: #### C BC ####[facility] Uyhjstokew12[address] [place] [address]Dr. Slick Davie Neutrophils/100 WBC (Bld) 73.7 % Normal 43.0-75.0 [facility] Comment on above: Performed By: #### C BC ####[facility] Cvgbqncraa022[address] [place] [address]Dr. Slick Davie Platelet mean volume (Bld) [Entitic vol] 9.4 fL Critically low 9.5-13.5 [facility] Comment on above: Performed By: #### C BC ####[facility] Rofdxgekrc6[address] [place] [id number]. Slick Broderick PLT 209 103/ul Normal 150-450 [facility] Comment on above: Performed By: #### C BC ####[facility] Jpzniwzakb9[address] [place] [address]Dr. Slick Broderick RBC 2.20 106/ul Critically low 4.20-5.40 [facility] Comment on above: Performed By: #### C BC ####[facility] Jfhpybyrtn33[address] [place] [address]Dr. Slick Broderick WBC 7.6 103/ul Normal 4.0-11.0 [facility] Comment on above: Performed By: #### C BC ####[facility] Ktqvgejwni7[address] [place], [place] [address]Dr. Slick Broderick PROF 14(COMP METB)on 022 Albumin [Mass/Vol] 2.1 g/dL Critically low 3.4-5.0 [facility] Comment on above: Performed By: #### C MP ####[facility] Qlbhinugox68[address] [place] [address]Dr. Slick Broderick Albumin/Globulin [Mass ratio] 0.7 {ratio} Normal [facility] Comment on above: Performed By: #### C MP ####[facility] Vrvzblirot[address] [place], [place] [address]Dr. Slick Broderick ALP [Catalytic activity/Vol] 83 U/L Normal 46-116 [facility] Comment on above: Performed By: #### C MP ####[facility] Rnklfafcxh68[address] [place] [address]Dr. Slick Broderick ALT [Catalytic activity/Vol] 12 U/L Critically low 14-59 [facility] Comment on above: Performed By: #### C MP ####[facility] Xwwoywrtgi95[address] [place], [place] [address]Dr. Slick Broderick Anion gap [Moles/Vol] 14.0 mmol/L Normal [facility] Comment on above: Performed By: #### C MP ####[facility] Kabqujyhli[address] [place] [id number]. Slick Broderick AST [Catalytic activity/Vol] 13 U/L Critically low 15-37 [facility] Comment on above: Performed By: #### C MP ####[facility] Pcebclxiij7644 [place] [address]Dr. Slick Broderick Bilirubin [Mass/Vol] 0.3 mg/dL Normal 0.2-1.0 [facility] Comment on above: Performed By: #### C MP ####[facility] Wptrlvbcty34[address] [place] [address]Dr. Slick Broderick Calcium [Mass/Vol] 7.4 mg/dL Critically low 8.5-10.1 [facility] Comment on above: Performed By: #### C MP ####[facility] Mmhezxkbxs[address] [place], [place] [address]Dr. Slick Broderick Chloride [Moles/Vol] 105 mmol/L Normal 98-107 [facility] Comment on above: Performed By: #### C MP ####[facility] Qvkshopkmk[address] [place], [place] [address]Dr. Slick Broderick CO2 [Moles/Vol] 23.0 mmol/L Normal 21.0-32.0 [facility] Comment on above: Performed By: #### C MP ####[facility] Eafrvazcaj[address] [place] [address]Dr. Slick Broderick Creatinine [Mass/Vol] 1.80 mg/dL Critically high 0.55-1.02 [facility] Comment on above: Performed By: #### C MP ####[facility] Hkbxeoadac49[address] [place] [id number]. Slick Broderick EGFR-AF IVORIAN 33 mL/min/1.73m2 Critically low >=60 [facility] Comment on above: Performed By: #### C MP ####[facility] Drgiqzckrw8956 [place] [address]Dr. Slick Broderick EGFR-NON AF IVORIAN 28 mL/min/1.73m2 Critically low >=60 [facility] Comment on above: Performed By: #### C MP ####[facility] Asolldrgde9988 [place] [id number]. Slick Broderick Globulin (S) [Mass/Vol] 3.2 g/dL Normal [facility] Comment on above: Performed By: #### C MP ####[facility] Ytfpenjekw7427 [place] [id number]. Slick Broderick Glucose [Mass/Vol] 85 mg/dL Normal 74-106 [facility] Comment on above: Performed By: #### C MP ####[facility] Tpelkqaroj12[address] [place] [address]Dr. Slick Broderick Potassium [Moles/Vol] 5.0 mmol/L Normal 3.5-5.1 [facility] Comment on above: Performed By: #### C MP ####[facility] Cojijxzkcy7[address] [place], [place] [address]Dr. Slick Broderick Protein [Mass/Vol] 5.3 g/dL Critically low 6.4-8.2 [facility] Comment on above: Performed By: #### C MP ####[facility] Xllltqduqm20[address] [place], [place] [address]Dr. Slick Broderick Sodium [Moles/Vol] 137 mmol/L Normal 136-145 [facility] Comment on above: Performed By: #### C MP ####[facility] Skeiwtquaw[address] [place], [place] [address]Dr. Slick Broderick Urea nitrogen [Mass/Vol] 30.0 mg/dL Critically high 7.0-18.0 [facility] Comment on above: Performed By: #### C MP ####[facility] Rpuakadyfa94[address] [place] [address]Dr. Slick Broderick Urea nitrogen/Creatinine [Mass ratio] 16.7 mg/mg Normal [facility] Comment on above: Performed By: #### C MP ####[facility] Plngxsgctz[address] [place], [place] [address]Dr. Silck Broderick ABO RH RETYPEon 12-12-2021 ABO and Rh group Nom (Bld) DONE Normal [facility] Comment on above: Performed By: #### R ETYPE ####[facility] Oflqprmyfs[address] [place] [address]Dr. Meaganwendie Broderick BNPon 12-12-2021 Natriuretic peptide B (Bld) [Mass/Vol] 952.0 pg/mL Critically high <=900.0 [facility] Comment on above: Performed By: #### B BODY AND FENDER MECHANIC APPRENTICE, CRP, CMP ####[facility] Lzjisnmphl6[address] [place], [place] [address]Dr. Slick Broderick CBC AUTO DIFFon 12-12-2021 BASO # 0.0 103/ul Normal 0.0-0.1 [facility] Comment on above: Performed By: #### C BC ####[facility] Vyuywcoqwy[address] [place], [place] [address]Dr. Slick Broderick Basophils/100 WBC (Bld) 0.2 % Normal 0.2-2.0 [facility] Comment on above: Performed By: #### C BC ####[facility] Wpugdpmljk6[address] [place], [place] [address]Dr. Slick Broderick EO # 0.2 103/ul Normal 0.0-0.7 [facility] Comment on above: Performed By: #### C BC ####[facility] Okhcqwrypt742[address] [place], [place] [address]Dr. Slick Broderick Eosinophils/100 WBC (Bld) 2.6 % Normal 0.9-7.0 [facility] Comment on above: Performed By: #### C BC ####[facility] Iwhcdaojqs[address] [place], [place] [address]Dr. Slick Broderick Erythrocyte distribution width (RBC) [Ratio] 17.2 % Critically high 11.0-15.0 [facility] Comment on above: Performed By: #### C BC ####[facility] Bhjdavzkwj28[address] [place], [place] [address]Dr. Slick Broderick Hematocrit (Bld) [Volume fraction] 24.0 % Critically low 36.0-48.0 [facility] Comment on above: Performed By: #### C BC ####[facility] Wexwqddcsh[address] [place], [place] [address]Dr. Slick Broderick Hemoglobin (Bld) [Mass/Vol] 7.7 g/dL Critically low 12.0-16.0 [facility] Comment on above: Performed By: #### C BC ####[facility] Hktpmisorr80[address] [place] [address]Dr. Slick Broderick IG # 0.05 10e3/ul Critically high 0.00-0.03 [facility] Comment on above: Performed By: #### C BC ####[facility] Wvkncowwnp495[address] [place] [address]Dr. Slick Broderick IG % 0.5 % Normal 0.0-0.5 [facility] Comment on above: Performed By: #### C BC ####[facility] Wxbsmdzyjj6629[address] [place], [place] [address]Dr. Slick Broderick LYMPH # 0.7 103/ul Critically low 1.2-3.8 [facility] Comment on above: Performed By: #### C BC ####[facility] Qxfxiaswsx624[address] [place], [place] [address]Dr. Slick Broderick Lymphocytes/100 WBC (Bld) 7.7 % Critically low 20.5-60.0 [facility] Comment on above: Performed By: #### C BC ####[facility] Glyjylhgwj728[address] [place], [place] [address]Dr. Slick Broderick MANUAL DIFF REQ NO Normal [facility] Comment on above: Performed By: #### C BC ####[facility] Taffqnodcv8[address] [place] [address]Dr. Slick Broderick MCH (RBC) [Entitic mass] 32.6 pg Normal 26.7-34.0 [facility] Comment on above: Performed By: #### C BC ####[facility] Qwxcyvkqli309[address] [place], [place] [address]Dr. Slick Broderick MCHC (RBC) [Mass/Vol] 32.1 g/dL Normal 29.9-35.2 [facility] Comment on above: Performed By: #### C BC ####[facility] Kuimcvqgpd317[address] [place], [place] [address]Dr. Slick Broderick MCV (RBC) [Entitic vol] 101.7 fL Critically high 81.0-99 .0 [facility] Comment on above: Performed By: #### C BC ####[facility] Bnxnkwybvp9354 [place] [address]DrEmma Slick Broderick MONO # 0.8 103/ul Normal 0.3-0.8 [facility] Comment on above: Performed By: #### C BC ####[facility] Oxvhjybuoq2825 [place] [address]DrEmma Slick Davie Monocytes/100 WBC (Bld) 8.5 % Normal 1.7-12.0 [facility] Comment on above: Performed By: #### C BC ####[facility] Amjamrtxea004[address] [place], [place] [address]DrEmma Slick Broderick NEUT # 7.3 103/ul Critically high 1.4-6.5 [facility] Comment on above: Performed By: #### C BC ####[facility] Jycvozmzps500[address] [place], [place] [address]DrEmma Slick Davie Neutrophils/100 WBC (Bld) 80.5 % Critically high 43.0-75.0 [facility] Comment on above: Performed By: #### C BC ####[facility] Ceujonvrav939[address] [place], [place] [address]DrEmma Slick Davie Platelet mean volume (Bld) [Entitic vol] 8.9 fL Critically low 9.5-13.5 [facility] Comment on above: Performed By: #### C BC ####[facility] Axardgggmo58[address] [place] [address]Dr. Meaganwendie Davie PLT 204 103/ul Normal 150-450 [facility] Comment on above: Performed By: #### C BC ####[facility] Dhlcwqswuh05[address] [place], [place] [address]DrEmma Broderick RBC 2.36 106/ul Critically low 4.20-5.40 [facility] Comment on above: Performed By: #### C BC ####[facility] Jszafqbwgl[address] [place], [place] [address]DrEmma Broderick WBC 9.1 103/ul Normal 4.0-11.0 [facility] Comment on above: Performed By: #### C BC ####[facility] C[address]ugyjazas[address] [place] [address]Dr. Slick Broderick CBC W MANUAL DIFFon 12-13-19 22 ATYPICAL LYMPH # Normal [facility] Comment on above: Performed By: #### C BCMAN ####[facility] Ljxkrtfzcm6[address] [place] [address]Dr. Slick Broderick ATYPICAL LYMPH % Normal [facility] Comment on above: Performed By: #### C BCMAN ####[facility] Pzxywalzll[address] [place], [place] [address]Dr. Slick Broderick BAND # Normal 0.0-0.3 [facility] Comment on above: Performed By: #### C BCMAN ####[facility] Cwhpufhmwa[address] [place], [place] [address]Dr. Slick Broderick BAND % Normal 0-5 [facility] Comment on above: Performed By: #### C BCMAN ####[facility] Msuzihiabg[address] [place], [place] [address]Dr. Slick Broderick BASOM # 0.00 103/ul Normal 0.00-0.10 [facility] Comment on above: Performed By: #### C BCMAN ####[facility] Tfrejelhkg[address] [place], [place] [address]Dr. Slick Broderick BASOM % 0.0 % Critically low 0.2-2.0 [facility] Comment on above: Performed By: #### C BCMAN ####[facility] Ynhlqnqphn[address] [place], [place] [address]Dr. Slick Broderick BLAST # Normal [facility] Comment on above: Performed By: #### C BCMAN ####[facility] Zufjhzkkpj[address] [place], [place] [address]Dr. Slick Broderick BLAST % Normal [facility] Comment on above: Performed By: #### C BCMAN ####[facility] Oqqcexrzxi8967[address] [place], [place] [address]Dr. Slick Broderick CORRECTED WBC Normal 4.0-11.0 [facility] Comment on above: Performed By: #### C BCNAZARIO ####[facility] Njumzmimbp9548 [place] [id number]. Slick Broderick EOS # 0.35 103/ul Normal 0.00-0.70 [facility] Comment on above: Performed By: #### C AIDEN ####[facility] Gkkkeknqos6678 [place] [id number]. Slick Broderick EOS% 3.0 % Normal 0.9-7.0 [facility] Comment on above: Performed By: #### C AIDEN ####[facility] Xlkyylqsmf2898 [place] [id number]. Slick Broderick HCT 21.4 % Critically low 36.0-48.0 [facility] Comment on above: Result Comment: TEST REPEATED CRITICAL VALUE VERIFIED Performed By: #### C AIDEN ####[facility] Dhsmjcuqvf3713 [place] [id number]. Slick Broderick HGB 6.6 g/dl Critically low 12.0-16.0 [facility] Comment on above: Result Comment: TEST REPEATED CRITICAL VALUE VERIFIED Performed By: #### C AIDEN ####[facility] F[address]dby[address] [place], [place] [address]Dr. Slick Broderick LYMPHM # 0.59 103/ul Critically low 1.20-3.80 [facility] Comment on above: Performed By: #### C AIDEN ####[facility] Qyvflhftjq6089 [place] [id number]. Slick Broderick LYMPHM% 5.0 % Critically low 20.5-60.0 [facility] Comment on above: Performed By: #### C AIDEN ####[facility] Altzksahhk2784 [place] [id number]. Slick Broderick MCH 33.2 pg Normal 26.7-34.0 [facility] Comment on above: Performed By: #### C AIDEN ####[facility] Fnthrhghcb0153 [place] [id number]. Slick Broderick MCHC 30.8 g/dl Normal 29.9-35.2 [facility] Comment on above: Performed By: #### C AIDEN ####[facility] Vqlcvenprd3863 [place] [id number]. Slick Broderick MCV 107.5 fL Critically high 81.0-99.0 [facility] Comment on above: Result Comment: RBCS APPEAR MACROCYTIC ON PERIPHERAL SMEAR Performed By: #### C BCNAZARIO ####[facility] Gqdwklqinn7763 [place] [id number]. Slick Broderick METAMYELOCYTE # Normal [facility] Comment on above: Performed By: #### C AIEDN ####[facility] Qikvatyykc2699 [place] [id number]. Slick Broderick METAMYELOCYTE % Normal [facility] Comment on above: Performed By: #### C AIDEN ####[facility] Chxqgikgru2537 [place] [id number]. Slick Broderick MONOM# 0.71 103/ul Normal 0.30-0.80 [facility] Comment on above: Performed By: #### C AIDEN ####[facility] Ghdwbhcyiu0458 [place] [id number]. Slick Broderick MONOM% 6.0 % Normal 1.7-12.0 [facility] Comment on above: Performed By: #### C AIDEN ####[facility] Gybpsoimpp0321 [place] [id number]. Slick Broderick MPV 9.2 fL Critically low 9.5-13.5 [facility] Comment on above: Performed By: #### C AIDEN ####[facility] Zporxkxbuq7452 [place] [id number]. Slick Broderick MYELOCYTE # Normal [facility] Comment on above: Performed By: #### C AIDEN ####[facility] Dutdhyoceg7037 [place] [phone]. Slick Broderick MYELOCYTE % Normal [facility] Comment on above: Performed By: #### C AIDEN ####[facility] Jaxfxtbmzs3140 [place] [id number]. Slick Broderick NRBC Normal [facility] Comment on above: Performed By: #### C BCMAN ####[facility] Mprvwekvir9935 [place], [place] [address]Qk. Slick Broderick PLT 232 103/ul Normal 150-450 [facility] Comment on above: Performed By: #### C BCMAN ####[facility] Mlpezoddyy7039 [place], [place] [address]In. Slick Broderick RBC 1.99 106/ul Critically low 4.20-5.40 [facility] Comment on above: Performed By: #### C BCNAZARIO ####[facility] Cplkkqifqx7472 [place], [place] [address]Ah. Slick Broderick RDW 15.6 % Critically high 11.0-15.0 [facility] Comment on above: Performed By: #### C BCNAZARIO ####[facility] [address] [place], [place] [address]Wr. Slick Broderick SEG # 10.15 103/ul Critically high 1.40-6.50 [facility] Comment on above: Performed By: #### C BCNAZARIO ####[facility] Ox[address] [place], [place] [address]Lf. Slick Broderick SEG % 86.0 % Critically high 43.0-75.0 [facility] Comment on above: Performed By: #### C BCMAN ####[facility] Xajglpmobx[address] [place], [place] [address]Un. Slick Broderick WBC 11.8 103/ul Critically high 4.0-11.0 [facility] Comment on above: Performed By: #### C BCMAN ####[facility] By[address]tube[address] [place], [place] [address]Rs. Slick Broderick CRPon 12-12-2021 CRP 10.1 mg/dL Critically high <=1.0 [facility] Comment on above: Performed By: #### B BODY AND FENDER MECHANIC APPRENTICE, CRP, CMP ####[facility] [address] [place], [place] [address]Gb. Slick Broderick CULTURE BLOODon 07-03-2022 Microscopic examination of blood, culture Culture Observations: NO GROWTH AT 5 DAYS. Normal The [facility] Comment on above: Performed By: #### B LDCX2 ####[facility] [address] [place] [address]Dr. Slick Broderick Microscopic examination of blood, culture Culture Observations: NO GROWTH AT 5 DAYS. Normal [facility] Comment on above: Performed By: #### B LDCX1 ####[facility] [address] [place] [id number]. Slick Broderick CULTURE URINEon 12-12-2021 CULTURE URINE Culture Observations: NO GROWTH. Normal [facility] Comment on above: Performed By: #### U RCX ####[facility] [address]xf[address] [place] [address]Dr. Slick Broderick [facility]on SARS-CoV-2 (COVID-19) RNA DONNIE+probe Ql (Unsp spec) Not detected Normal NOT DETECTED The [facility] Comment on above: Result Comment: [...] for this test is supported by the Double Cut Off Saw Operator of Health and Human Service's declaration that [...] be used). Performed By: #### C VDTBH ####[facility] [address] [place] [id number]. Slick Broderick ER URINE PROFILEon 2 Bilirubin Ql (U) Negative Normal NEGATIVE [facility] Comment on above: Performed By: #### U MICRO, ERUR ####[facility] [address] [place] [address]Dr. Slick Broderick Clarity (U) CLOUDY Abnormal CLEAR [facility] Comment on above: Performed By: #### U MICRO, ERUR ####[facility] X[address] [place] [address]Dr. Slick Broderick Color (U) LT. YELLOW Normal YELLOW The [facility] Comment on above: Performed By: #### U MICRO, ERUR ####[facility] [address] [place], [place] [address]Dr. Slick Broderick ERUAHD A micrscopic examination will be performed if indicated. Normal The [facility] Comment on above: Performed By: #### U MICRO, ERUR ####[facility] [address] [place], [place] [address]Dr. Slick Broderick Glucose Ql (U) Negative Normal NEGATIVE [facility] Comment on above: Performed By: #### U MICRO, ERUR ####[facility] [address] [place], [place] [address]Dr. Slick Broderick Hemoglobin Ql (U) Negative Normal NEGATIVE [facility] Comment on above: Performed By: #### U MICRO, ERUR ####[facility] [address] [place], [place] [address]Dr. Slick Broderick Ketones Ql (U) Negative Normal NEGATIVE [facility] Comment on above: Performed By: #### U MICRO, ERUR ####[facility] [address] [place], [place] [address]Dr. Slick Broderick LEUKOCYTES MODERATE Abnormal NEGATIVE The [facility] Comment on above: Performed By: #### U MICRO, ERUR ####[facility] [address] [place], [place] [address]Dr. Slick Broderick Nitrite Ql (U) Negative Normal NEGATIVE [facility] Comment on above: Performed By: #### U MICRO, ERUR ####[facility] [address] [place], [place] [address]Dr. Slick Broderick pH (U) 6.0 [pH] Normal 5-9 [facility] Comment on above: Performed By: #### U MICRO, ERUR ####[facility] [address] [place] [address]Dr. Slick Broderick SPEC GRAVITY 1.010 Normal 1.005-<=1.0 25 [facility] Comment on above: Performed By: #### U MICRO, ERUR ####[facility] [address]es[address] [place] [address]Dr. Slick Broderick UA PROTEIN Negative Normal NEGATIVE/ TRACE The [facility] Comment on above: Performed By: #### U MICRO, ERUR ####[facility] [address]fb[address] [place] [address]Dr. Slick Broderick UR MICRO IND INDICATED Normal [facility] Comment on above: Performed By: #### U MICRO, ERUR ####[facility] [address] [place] [address]Dr. Slick Broderick Urobilinogen Qn (U) 0.2 {Hiren'U}/dL Normal 0.2 - 1. 0 [facility] Comment on above: Performed By: #### U MICRO, ERUR ####[facility] [address] [place] [address]Dr. Slick Broderick IRON AND TIBCon 12-12-2021 % SATURATION 7.0 % Normal [facility] Comment on above: Performed By: #### B 12FOL, FETIBC ####[facility] [address] [place] [address]Dr. Slick Broderick Iron [Mass/Vol] 18.0 ug/dL Critically low 50.0-170.0 [facility] Comment on above: Performed By: #### B 12FOL, FETIBC ####[facility] [address] [place] [address]Dr. Slick Broderick TIBC DIRECT 257.0 ug/dL Normal 250.0-450.0 [facility] Comment on above: Performed By: #### B 12FOL, FETIBC ####[facility] [address]brnhv[address] [place] [address]Dr. Slick Broderick LACTATE/LACTIC ACIDon 2021 Lactate [Moles/Vol] 0.7 mmol/L Normal 0.4-1.9 [facility] Comment on above: Performed By: #### L ACT ####[facility] [address]url[address] [place] [address]Dr. Slick Broderick OCC BLD IMMUNO SCREENon OCCULT BLOOD Negative Normal NEGATIVE [facility] Comment on above: Performed By: #### O BSCRN ####[facility] [address] [place] [address]Dr. Slick Broderick PROF 14(COMP METB)on 022 Albumin [Mass/Vol] 2.6 g/dL Critically low 3.4-5.0 [facility] Comment on above: Performed By: #### B BODY AND FENDER MECHANIC APPRENTICE, CRP, CMP ####[facility] [address] [place], [place] [address]Dr. Slick Broderick Albumin/Globulin [Mass ratio] 0.7 {ratio} Normal [facility] Comment on above: Performed By: #### B BODY AND FENDER MECHANIC APPRENTICE, CRP, CMP ####[facility] [address] [place] [address]Dr. Slick Broderick ALP [Catalytic activity/Vol] 105 U/L Normal 46-116 [facility] Comment on above: Performed By: #### B BODY AND FENDER MECHANIC APPRENTICE, CRP, CMP ####[facility] [address] [place] [address]Dr. Slick Broderick ALT [Catalytic activity/Vol] 16 U/L Normal 14-59 [facility] Comment on above: Performed By: #### B BODY AND FENDER MECHANIC APPRENTICE, CRP, CMP ####[facility] [address] [place] [address]Dr. Slick Broderick Anion gap [Moles/Vol] 11.7 mmol/L Normal [facility] Comment on above: Performed By: #### B BODY AND FENDER MECHANIC APPRENTICE, CRP, CMP ####[facility] V[address]zvzgj[address] [place] [address]Dr. Slick Broderick AST [Catalytic activity/Vol] 11 U/L Critically low 15-37 [facility] Comment on above: Performed By: #### B BODY AND FENDER MECHANIC APPRENTICE, CRP, CMP ####[facility] [address]xi[address] [place] [address]Dr. Slick Broderick Bilirubin [Mass/Vol] 0.3 mg/dL Normal 0.2-1.0 [facility] Comment on above: Performed By: #### B BODY AND FENDER MECHANIC APPRENTICE, CRP, CMP ####[facility] [address]jgpi4373 [place] [address]Dr. Slick Broderick Calcium [Mass/Vol] 7.8 mg/dL Critically low 8.5-10.1 [facility] Comment on above: Performed By: #### B BODY AND FENDER MECHANIC APPRENTICE, CRP, CMP ####[facility] [address]ns[address] [place], [place] [address]Dr. Slick Broderick Chloride [Moles/Vol] 105 mmol/L Normal 98-107 [facility] Comment on above: Performed By: #### B BODY AND FENDER MECHANIC APPRENTICE, CRP, CMP ####[facility] Upxud[address]rnf[address] [place], [place] [address]Dr. Slick Broderick CO2 [Moles/Vol] 24.2 mmol/L Normal 21.0-32.0 [facility] Comment on above: Performed By: #### B BODY AND FENDER MECHANIC APPRENTICE, CRP, CMP ####[facility] [address]xvsmvacjr[address] [place], [place] [address]Dr. Slick Broderick Creatinine [Mass/Vol] 1.96 mg/dL Critically high 0.55-1.02 [facility] Comment on above: Performed By: #### B BODY AND FENDER MECHANIC APPRENTICE, CRP, CMP ####[facility] I[address]un[address] [place], [place] [address]Dr. Slick Broderick EGFR-AF IVORIAN 30 mL/min/1.73m2 Critically low >=60 The [facility] Comment on above: Performed By: #### B BODY AND FENDER MECHANIC APPRENTICE, CRP, CMP ####[facility] [address]zh[address] [place], [place] [address]Dr. Slick Broderick EGFR-NON AF IVORIAN 25 mL/min/1.73m2 Critically low >=60 [facility] Comment on above: Performed By: #### B BODY AND FENDER MECHANIC APPRENTICE, CRP, CMP ####[facility] Xsdkwxklra[address] [place], [place] [address]Dr. Slick Broderick Globulin (S) [Mass/Vol] 3.8 g/dL Normal [facility] Comment on above: Performed By: #### B BODY AND FENDER MECHANIC APPRENTICE, CRP, CMP ####[facility] [address]gb[address]woi[address] [place] [address]Dr. Slick Broderick Glucose [Mass/Vol] 91 mg/dL Normal 74-106 [facility] Comment on above: Performed By: #### B BODY AND FENDER MECHANIC APPRENTICE, CRP, CMP ####[facility] Wrxraaeutq[address] [place] [address]Dr. Slick Broderick Potassium [Moles/Vol] 4.9 mmol/L Normal 3.5-5.1 [facility] Comment on above: Performed By: #### B BODY AND FENDER MECHANIC APPRENTICE, CRP, CMP ####[facility] [address] [place], [place] [address]Dr. Slick Broderick Protein [Mass/Vol] 6.4 g/dL Normal 6.4-8.2 [facility] Comment on above: Performed By: #### B BODY AND FENDER MECHANIC APPRENTICE, CRP, CMP ####[facility] [address] [place], [place] [address]Dr. Slick Broderick Sodium [Moles/Vol] 136 mmol/L Normal 136-145 [facility] Comment on above: Performed By: #### B BODY AND FENDER MECHANIC APPRENTICE, CRP, CMP ####[facility] Rq[address]attze[address] [place], [place] [address]Dr. Slick Broderick Urea nitrogen [Mass/Vol] 32.0 mg/dL Critically high 7.0-18.0 [facility] Comment on above: Performed By: #### B BODY AND FENDER MECHANIC APPRENTICE, CRP, CMP ####[facility] [address]zspotrkl[address]63 [place] [address]Dr. Slick Broderick Urea nitrogen/Creatinine [Mass ratio] 16.3 mg/mg Normal [facility] Comment on above: Performed By: #### B BODY AND FENDER MECHANIC APPRENTICE, CRP, CMP ####[facility] Hrgjdonodb44[address] [place] [address]Dr. Slick Broderick TYPE AND SCREENon 12-12-2021 TYPE AND SCREEN Negative Normal [facility] Comment on above: Performed By: #### T NS ####[facility] [address]scclid[address] [place], [place] [address]Dr. Slick Broderick URINE MICROSCOPIC ONLYon BACTERIA SMALL Abnormal NONE SEEN The [facility] Comment on above: Performed By: #### U MICRO, ERUR ####[facility] K[address]qcdcmma[address] [place], [place] [address]Dr. Slick Broderick Bacteria identified Cx Nom (U) INDICATED Normal [facility] Comment on above: Performed By: #### U MICRO, ERUR ####[facility] [address]zwp[address] [place], [place] [address]Dr. Slick Broderick CAST NONE SEEN Normal NONE SEEN [facility] Comment on above: Performed By: #### U MICRO, ERUR ####[facility] [address]wc[address] [place], [place] [address]Dr. Slick Broderick Crystals LM Nom (Urine sed) NONE SEEN Normal NONE SEEN [facility] Comment on above: Performed By: #### U MICRO, ERUR ####[facility] Gewjft[address] [place], [place] [address]Dr. Slick Broderick Epithelial cells LM Ql (Urine sed) MANY Abnormal NONE SEEN /RARE [facility] Comment on above: Performed By: #### U MICRO, ERUR ####[facility] [address]tr[address] [place], [place] [address]Dr. Slick Broderick MUCOUS TRACE Abnormal NONE SEEN [facility] Comment on above: Performed By: #### U MICRO, ERUR ####[facility] Chkgonvmsx[address] [place], [place] [address]Dr. Slick Broderick RBC 0-2 Normal 0-2 [facility] Comment on above: Performed By: #### U MICRO, ERUR ####[facility] Exdxqosqto[address] [place], [place] [address]Dr. Slick Broderick WBC 2-5 Abnormal NONE SEEN [facility] Comment on above: Performed By: #### U MICRO, ERUR ####[facility] Icn[address]bwqmm[address] [place], [place] [address]Dr. Slick Broderick VIT B12 AND FOLATEon 022 Cobalamin (Vitamin B12) [Mass/Vol] 753.0 pg/mL Normal 193.0-986.0 [facility] Comment on above: Performed By: #### B 12NORRIS TAVERAC ####[facility] [address]qbn[address] [place] [address]Dr. Slick Broderick FOLATE 20.20 ng/mL Normal 8.60-58.90 [facility] Comment on above: Performed By: #### B 12AYSE FETCHRISTINEC ####[facility] [address]iez[address] [place] [address]Dr. Slick Broderick XR CHEST 1 Von 12-12-2021 XR CHEST 1 V Normal [facility] XR KNEE LT 3Von 12-12-2021 XR KNEE LT 3V Normal [facility] PROF CHEM 8 (BAS METB)on Anion gap [Moles/Vol] 11.4 mmol/L Normal [facility] Comment on above: Performed By: #### B MP ####[facility] K[address]clfqr9[address] [place] [address]Dr. Slick Broderick Calcium [Mass/Vol] 7.4 mg/dL Critically low 8.5-10.1 [facility] Comment on above: Performed By: #### B MP ####[facility] Ev[address]tfqlr[address] [place] [address]Dr. Slick Broderick Chloride [Moles/Vol] 109 mmol/L Critically high 98-107 [facility] Comment on above: Performed By: #### B MP ####[facility] [address]yk[address] [place] [address]Dr. Slick Broderick CO2 [Moles/Vol] 26.6 mmol/L Normal 21.0-32.0 [facility] Comment on above: Performed By: #### B MP ####[facility] [address]gbiz[address] [place] [address]Dr. Slick Broderick Creatinine [Mass/Vol] 1.16 mg/dL Critically high 0.55-1.02 [facility] Comment on above: Performed By: #### B MP ####[facility] Iyt[address]fw[address]cew[address] [place] [address]Dr. Slick Broderick EGFR-AF IVORIAN 56 mL/min/1.73m2 Critically low >=60 [facility] Comment on above: Performed By: #### B MP ####[facility] Qmgcmynkod[address] [place] [address]Dr. Meaganwendie Davie EGFR-NON AF IVORIAN 46 mL/min/1.73m2 Critically low >=60 [facility] Comment on above: Performed By: #### B MP ####[facility] C[address]bjuraw[address] [place] [address]Dr. Slick Broderick Glucose [Mass/Vol] 128 mg/dL Critically high 74-106 [facility] Comment on above: Performed By: #### B MP ####[facility] [address]he[address] [place], [place] [address]Dr. Slick Broderick Potassium [Moles/Vol] 5.0 mmol/L Normal 3.5-5.1 [facility] Comment on above: Performed By: #### B MP ####[facility] [address] [place], [place] [address]Dr. Slick Broderick Sodium [Moles/Vol] 142 mmol/L Normal 136-145 [facility] Comment on above: Performed By: #### B MP ####[facility] [address] [place], [place] [address]Dr. Slick Broderick Urea nitrogen [Mass/Vol] 22.0 mg/dL Critically high 7.0-18.0 [facility] Comment on above: Performed By: #### B MP ####[facility] [address]irge[address] [place] [address]Dr. Slick Broderick Urea nitrogen/Creatinine [Mass ratio] 19.0 mg/mg Normal [facility] Comment on above: Performed By: #### B MP ####[facility] [address] [place], [place] [address]Dr. Slick Broderick XR TIB_FIB LT 2Von 2 XR TIB_FIB LT 2V Normal [facility] CT CSPINE WO CONon 2 CT CSPINE WO CON Normal [facility] CT HEAD WO CONon 11-29-2021 CT HEAD WO CON Normal [facility] XR lumbar spine AP/LAT/FLX/E XTon 10-06-2021 XR lumbar spine AP/LAT/FLX/EXT [facility] Other XR lumbar spine AP/LAT/FLX/EXT [facility] Other XR lumbar spine AP/LAT/FLX/EXT [address] [place] [address] [facility] Other XR lumbar spine AP/LAT/FLX/[place] [address] [employer] Other XR lumbar spine AP/LAT/FLX/EXT XRay Report [facility] Other XR lumbar spine AP/LAT/FLX/EXT Signed [facility] Other XR lumbar spine AP/LAT/FLX/EXT Patient: Linda Nascimento MR#: [id number] [facility] Other XR lumbar spine AP/LAT/FLX/EXT 840 [facility] Other XR lumbar spine AP/LAT/FLX/EXT : 1950 Acct:[id number] [facility] Other XR lumbar spine AP/LAT/FLX/EXT Age/Sex: 71 / F ADM Date: 10/06/21 [facility] Other XR lumbar spine AP/LAT/FLX/EXT Loc: [facility]XD Room: Type: REG CLI [facility] Other XR lumbar spine AP/LAT/FLX/EXT Attending Dr: Gunnar Fernandez DO [facility] Other XR lumbar spine AP/LAT/FLX/EXT Ordering Provider: Gunnar Fernandez DO [facility] Other XR lumbar spine AP/LAT/FLX/EXT Date of Service: 10/06/21 [facility] Other XR lumbar spine AP/LAT/FLX/EXT XR/XR lumbar spine AP/LAT/FLX/EXT: Lumbar pain [facility] Other XR lumbar spine AP/LAT/FLX/EXT Copies to: Gunnar Fernandez DO [facility] Other XR lumbar spine AP/LAT/FLX/EXT Lumbar spine 10/06/2021. [facility] Other XR lumbar spine AP/LAT/FLX/EXT CLINICAL DATA: Low back pain with radiation to the buttocks. [facility] Other XR lumbar spine AP/LAT/FLX/EXT FINDINGS: 4 standing views of the lumbar spine were obtained including lateral views in the [facility] Other XR lumbar spine AP/LAT/FLX/EXT neutral, flexion, and extension positions. [facility] Other XR lumbar spine AP/LAT/FLX/EXT There is grade 2 spondylolisthesis measuring 17 mm at L4-L5. There is grade 1 spondylolisthesis [facility] Other XR lumbar spine AP/LAT/FLX/EXT measuring 8 mm at the lumbosacral junction. There is mild anterior malalignment of L3 on L4. Overall [facility] Other XR lumbar spine AP/LAT/FLX/EXT vertebral alignment does not significantly change with flexion or extension. There are disc space [facility] Other XR lumbar spine AP/LAT/FLX/EXT narrowing and facet arthritis in the lower lumbar spine. [facility] Other XR lumbar spine AP/LAT/FLX/EXT XR/XR lumbar spine AP/LAT/FLX/EXT [facility] Other XR lumbar spine AP/LAT/FLX/EXT IMPRESSION: Multilevel spondylolisthesis. No instability with flexion or extension. Disc space [facility] Other XR lumbar spine AP/LAT/FLX/EXT Impression dictated by: Marin Haines Jr., M.D.10/06/2021 4:07 PM [facility] Other XR lumbar spine AP/LAT/FLX/EXT Dictation Location: [place] [address] [facility] Other XR lumbar spine AP/LAT/FLX/EXT Transcribed By: ROLF 10/06/21 1607 [facility] Other XR lumbar spine AP/LAT/FLX/EXT Dictated By: Marin Haines Jr, MD 10/06/21 1600 [facility] Other XR lumbar spine AP/LAT/FLX/EXT Signed By: [facility] Other XR lumbar spine AP/LAT/FLX/EXT 10/06/21 1604 [facility] Other BASIC METABOLIC PANELon 11-1 Calcium [Mass/Vol] 8.2 mg/dL Low 8.6-10.3 [facility] Comment on above: Order Comment: No: D o not add to previous draw Performed By: #### 0 0071 ####[facility] [place] [address], [facility] Chloride [Moles/Vol] 106 mmol/L Normal 98-107 [facility] Comment on above: Order Comment: No: D o not add to previous draw Performed By: #### 0 0071 ####[facility] [place] [address], [facility] CO2 [Moles/Vol] 23 mmol/L Normal 21-31 The [facility] Comment on above: Order Comment: No: D o not add to previous draw Performed By: #### 0 0071 ####[facility] [place] [address], [facility] Creatinine [Mass/Vol] 0.98 mg/dL Normal 0.60-1.20 [facility] Comment on above: Order Comment: No: D o not add to previous draw Performed By: #### 0 0071 ####[facility] [place] [address], [facility] eGFR- non- 56 ml/min/1.73sq m Abnormal >60 The [facility] Comment on above: Order Comment: No: D o not add to previous draw Result Comment: Calc ulation may not be valid for patients over 70 years Performed By: #### 0 0071 ####[facility] [place] [address], [facility] GFR/1.73 sq M.predicted among blacks MDRD (S/P/Bld) [Vol rate/Area] mL/min/{1.73_m2} Normal >60 [facility] Comment on above: Order Comment: No: D o not add to previous draw Result Comment: Calc ulation may not be valid for patients over 70 years Performed By: #### 0 0071 ####[facility] [place] [address], [facility] Glucose [Mass/Vol] 104 mg/dL High 70-100 The [facility] Comment on above: Order Comment: No: D o not add to previous draw Performed By: #### 0 0071 ####[facility] [facility] [place] [address], [facility] Potassium [Moles/Vol] 4.5 mmol/L Normal 3.5-5.1 [facility] Comment on above: Order Comment: No: D o not add to previous draw Performed By: #### 0 0071 ####[facility] [place] [address], [facility] [facility] Sodium [Moles/Vol] 136 mmol/L Normal 136-145 [facility] Comment on above: Order Comment: No: D o not add to previous draw Performed By: #### 0 0071 ####[facility] Urea nitrogen [Mass/Vol] 14 mg/dL Normal 7-25 [facility] Comment on above: Order Comment: No: D o not add to previous draw Performed By: #### 0 0071 ####[facility] HEMATOCRITon 04-28-2021 Hematocrit (Bld) [Volume fraction] 27.6 % Low 36.0-45.0 [facility] Comment on above: Order Comment: No: D o not add to previous draw Performed By: #### 5 7307, 15748 #### [facility] [address] HEMOGLOBINon 04-28-2021 Hemoglobin (Bld) [Mass/Vol] 8.6 g/dL Low 12.0-15.0 [facility] Comment on above: Order Comment: No: D o not add to previous draw Performed By: #### 5 7307, 30269 #### [facility] [address] CHEST AND LATERALon 04-27-20 CHEST AND LATERAL [facility] Department of Radiology [address] [place], [place] [id number] Patient Name: LINDA NASCIMENTO : 1950 Sex: F Age: Race: White Pt. Location: [id number] Patient Status: I Ordered Date: 04/27/2021 7:00:00 [...] leads. Electronically signed: Dwight Davila. Transcribed by: [email or web address], User Resident: Electronically Signed by: DWIGHT DAVILA @ 04/27/2021 10:35 AM Normal [facility] Comment on above: Order Comment: No: D o not add to previous draw BASIC METABOLIC PANELon 04-12 Calcium [Mass/Vol] 8.7 mg/dL Normal 8.6-10.3 [facility] Comment on above: Order Comment: No: D o not add to previous draw Performed By: #### 0 0071 ####[facility] [place] [address], [facility] Chloride [Moles/Vol] 103 mmol/L Normal 98-107 [facility] Comment on above: Order Comment: No: D o not add to previous draw Performed By: #### 0 0071 ####[facility] [place] [address], [place] CO2 [Moles/Vol] 24 mmol/L Normal 21-31 The [facility] Comment on above: Order Comment: No: D o not add to previous draw Performed By: #### 0 0071 ####[facility] [place] [address], [place] Creatinine [Mass/Vol] 1.05 mg/dL Normal 0.60-1.20 [facility] Comment on above: Order Comment: No: D o not add to previous draw Performed By: #### 0 0071 ####[facility] [place] [address], [facility] eGFR- non- 51 ml/min/1.73sq m Abnormal >60 The [facility] Comment on above: Order Comment: No: D o not add to previous draw Result Comment: Calc ulation may not be valid for patients over 70 years Performed By: #### 0 0071 ####[facility] [place] [address], [place] GFR/1.73 sq M.predicted among blacks MDRD (S/P/Bld) [Vol rate/Area] mL/min/{1.73_m2} Normal >60 [facility] Comment on above: Order Comment: No: D o not add to previous draw Result Comment: Calc ulation may not be valid for patients over 70 years Performed By: #### 0 0071 ####[facility] [place] [address], [place] Glucose [Mass/Vol] 107 mg/dL High 70-100 [facility] Comment on above: Order Comment: No: D o not add to previous draw Performed By: #### 0 0071 ####[facility] [place] [address], [place] Potassium [Moles/Vol] 4.6 mmol/L Normal 3.5-5.1 [facility] Comment on above: Order Comment: No: D o not add to previous draw Performed By: #### 0 0071 ####[facility] [facility] [address], [facility] Sodium [Moles/Vol] 134 mmol/L Low 136-145 [facility] Comment on above: Order Comment: No: D o not add to previous draw Performed By: #### 0 0071 ####[facility] [place] [address], [facility] Urea nitrogen [Mass/Vol] 21 mg/dL Normal 7-25 [facility] Comment on above: Order Comment: No: D o not add to previous draw Performed By: #### 0 0071 ####[facility] [place] [address], [facility] CBC W/DIFFon 04-26-2021 ABS IMM GRANS 0.0 10*3/uL Normal 0.0-0.2 The [facility] Comment on above: Order Comment: No: D o not add to previous draw Performed By: #### 5 3 #### [facility] [address] [place] [address], [facility] ABS NEUTROPHILS 4.8 10*3/uL Normal 1.6-7.6 The [facility] Comment on above: Order Comment: No: D o not add to previous draw Performed By: #### 5 3 #### [facility] [address] [facility] [place] [address], [facility] Basophils (Bld) [#/Vol] 0.0 10*3/uL Normal 0.0-0.2 [facility] Comment on above: Order Comment: No: D o not add to previous draw Performed By: #### 5 102 #### [facility] [address] [place] [address], [facility] Basophils/100 WBC (Bld) 0.6 % Normal 0.0-1.0 [facility] Comment on above: Order Comment: No: D o not add to previous draw Performed By: #### 5 0103 #### [facility] [address] [place] [address], [facility] Eosinophils (Bld) [#/Vol] 0.4 10*3/uL Normal 0.0-0.5 [facility] Comment on above: Order Comment: No: D o not add to previous draw Performed By: #### 5 0103 #### [facility] [address] [place] [address], [facility] Eosinophils/100 WBC (Bld) 6.0 % Normal 0.0-6.0 [facility] Comment on above: Order Comment: No: D o not add to previous draw Performed By: #### 5 0103 #### [facility] [address] [facility] [address] Erythrocyte distribution width (RBC) [Ratio] 13.1 % Normal 11.5-15.0 [facility] Comment on above: Order Comment: No: D o not add to previous draw Performed By: #### 5 0103 #### [facility] [address] [facility] [place] [address], [facility] Hematocrit (Bld) [Volume fraction] 27.8 % Low 36.0-45.0 [facility] Comment on above: Order Comment: No: D o not add to previous draw Performed By: #### 5 0103 #### [facility] [address] [facility] [place] [address], [facility] Hemoglobin (Bld) [Mass/Vol] 9.0 g/dL Low 12.0-15.0 [facility] Comment on above: Order Comment: No: D o not add to previous draw Performed By: #### 5 0103 #### [facility] [address] [place] [address], [facility] IMMATURE GRANS 0.3 % Normal 0.0-1.0 The [facility] Comment on above: Order Comment: No: D o not add to previous draw Performed By: #### 5 0103 #### [facility] [address] [place] [address], [facility] Lymphocytes (Bld) [#/Vol] 0.7 10*3/uL Low 1.2-4.0 [facility] Comment on above: Order Comment: No: D o not add to previous draw Performed By: #### 5 0103 #### [facility] [address] [place] [address], [facility] Lymphocytes/100 WBC (Bld) 9.8 % Low 20.0-45.0 [facility] Comment on above: Order Comment: No: D o not add to previous draw Performed By: #### 5 0103 #### [facility] [address] [facility] [place] [address], [facility] MCH (RBC) [Entitic mass] 33.5 pg High 27.0-33.0 [facility] Comment on above: Order Comment: No: D o not add to previous draw Performed By: #### 5 0103 #### [facility] [address] [facility] [address], [facility] MCHC (RBC) [Mass/Vol] 32.4 g/dL Normal 32.0-35.0 [facility] Comment on above: Order Comment: No: D o not add to previous draw Performed By: #### 5 0103 #### [facility] [address] [place] [address], [facility] MCV (RBC) [Entitic vol] 103.3 fL High 82.0-98.0 T will [facility] Comment on above: Order Comment: No: D o not add to previous draw Performed By: #### 5 0103 #### [facility] [address] [place] [id number], [facility] Monocytes (Bld) [#/Vol] 0.7 10*3/uL Normal 0.1-1.0 [facility] Comment on above: Order Comment: No: D o not add to previous draw Performed By: #### 5 0103 #### [facility] [address] [place] [id number], [facility] MONOS 10.4 % Normal 5.0-12.0 [facility] Comment on above: Order Comment: No: D o not add to previous draw Performed By: #### 5 0103 #### [facility] [address] [place] [address], [facility] Neutrophils/100 WBC (Bld) 72.9 % High 40.0-72.0 [facility] Comment on above: Order Comment: No: D o not add to previous draw Performed By: #### 5 0103 #### [facility] [address] [place] [address], [facility] Nucleated RBC/100 WBC (Bld) [Ratio] 0 % Normal 0-0 [facility] Comment on above: Order Comment: No: D o not add to previous draw Performed By: #### 5 0103 #### [facility] [address] [place] [address], [facility] PLAT CNT 213 10*3/uL Normal 150-400 The [facility] Comment on above: Order Comment: No: D o not add to previous draw Performed By: #### 5 0103 #### [facility] [address] [facility] [place] [id number], [facility] RBC (Bld) [#/Vol] 2.69 10*6/uL Low 3.80-5.00 The [facility] Comment on above: Order Comment: No: D o not add to previous draw Performed By: #### 5 0103 #### [facility] [address] [place] [address], [place] WBC (Bld) [#/Vol] 6.62 10*3/uL Normal 4.00-10.60 The [facility] Comment on above: Order Comment: No: D o not add to previous draw Performed By: #### 5 0103 #### [facility] [address] [facility] [place] [address], [facility] Cardiovascular Lab Reporton 04-26-2021 Cardiovascular Lab Report [facility] MR #: [id number] Department of Physician: Enoch Frankel MD Medicine Service Date: 04/26/2021 Division of Birthdate: 1950 Cardiology Room #: [id number] Adult Cardiovascular Services [facility] [address] [facility]. [place], [place] [address] Cardiovascular Laboratory Report PACEMAKER IMPLANT PROCEDURE NOTE [...] using modified seldinger technique using a 5 Namibian micro-puncture needle on two occasions and 0.35 wires were placed. Local infiltration of 1% Lidocaine was performed, and an incision was created in the left upper chest. Dissection was then performed using cautery down to the fascial plane above the muscle and a small pocket was created for the device. 6 [place]ian Safesheaths were placed over the wire. An active fixation [employer] pacing lead was then delivered through the 6Fsheath to the right ventricle. After confirmation of lead position on orthogonal views (GONZALES and WELSH) to confirm septal position, the screw was activated, and the lead was placed in the right ventricular mid cavity towards the septum. After confirmation of good sensing parameters, injury pattern and pacing thresholds, 10V pacing was done and no diaphragmatic stimulation was noted. It was then secured in the pocket using three 1-0 Silk sutures. Then an active fixation [employer] lead was delivered through the 6Fsheath to the right atrial appendage. After confirmation of lead position on orthogonal views (GONZALES and WELSH), the screw was activated. RA lead was [...] Device info: Biotronik Edora Model# 8DRT Serial# [id number] RA lead: Model# Biotronik Joe S53 Serial# [id number] Sensin.9mV Threshold: 1.1V@0.5ms Impedance: 429 Ohms RV lead: Model (more content not included)... Normal [facility] BASIC METABOLIC PANELon 11-1 Calcium [Mass/Vol] 8.6 mg/dL Normal 8.6-10.3 [facility] Comment on above: Order Comment: No: D o not add to previous draw Performed By: #### 0 0071 ####[facility] [place] [address], [facility] Chloride [Moles/Vol] 101 mmol/L Normal 98-107 [facility] Comment on above: Order Comment: No: D o not add to previous draw Performed By: #### 0 0071 ####[facility] [place] [address], [facility] CO2 [Moles/Vol] 24 mmol/L Normal 21-31 The [facility] Comment on above: Order Comment: No: D o not add to previous draw Performed By: #### 0 0071 ####[facility] [place] [address], [facility] Creatinine [Mass/Vol] 1.36 mg/dL High 0.60-1.20 [facility] Comment on above: Order Comment: No: D o not add to previous draw Performed By: #### 0 0071 ####[facility] eGFR- 46 ml/min/1.73sq m Abnormal >60 [facility] Comment on above: Order Comment: No: D o not add to previous draw Result Comment: Calc ulation may not be valid for patients over 70 years Performed By: #### 0 0071 ####[facility] [place] [address], [facility] eGFR- non- 39 ml/min/1.73sq m Abnormal >60 The [facility] Comment on above: Order Comment: No: D o not add to previous draw Result Comment: Calc ulation may not be valid for patients over 70 years Performed By: #### 0 0071 ####[facility] [place] [address], [facility] Glucose [Mass/Vol] 98 mg/dL Normal 70-100 [facility] Comment on above: Order Comment: No: D o not add to previous draw Performed By: #### 0 0071 ####[facility] [facility] [place] [address], [facility] Potassium [Moles/Vol] 4.4 mmol/L Normal 3.5-5.1 [facility] Comment on above: Order Comment: No: D o not add to previous draw Performed By: #### 0 0071 ####[facility] [facility] [place] [address], [facility] Sodium [Moles/Vol] 132 mmol/L Low 136-145 [facility] Comment on above: Order Comment: No: D o not add to previous draw Performed By: #### 0 0071 ####[facility] [place] [address], [facility] Urea nitrogen [Mass/Vol] 22 mg/dL Normal 7-25 [facility] Comment on above: Order Comment: No: D o not add to previous draw Performed By: #### 0 0071 ####[facility] [id number], [facility] HEMATOCRITon 04-25-2021 Hematocrit (Bld) [Volume fraction] 28.3 % Low 36.0-45.0 [facility] Comment on above: Order Comment: No: D o not add to previous draw Performed By: #### 5 7307, 14074 #### [facility] [address] [place] [address], [facility] HEMOGLOBINon 04-25-2021 Hemoglobin (Bld) [Mass/Vol] 9.0 g/dL Low 12.0-15.0 [facility] Comment on above: Order Comment: No: D o not add to previous draw Performed By: #### 9 2097, 70556 #### [facility] [address] [place] [address], [facility] BASIC METABOLIC PANELon 04-12 Calcium [Mass/Vol] 8.8 mg/dL Normal 8.6-10.3 [facility] Comment on above: Order Comment: No: D o not add to previous draw Performed By: #### 1 69, 15509 ####[facility] [place] [address], [place] Chloride [Moles/Vol] 101 mmol/L Normal 98-107 [facility] Comment on above: Order Comment: No: D o not add to previous draw Performed By: #### 1 69, 78090 ####[facility] [place] [address], [place] CO2 [Moles/Vol] 26 mmol/L Normal 21-31 The [facility] Comment on above: Order Comment: No: D o not add to previous draw Performed By: #### 1 69, 07052 ####[facility] [place] [address], [place] Creatinine [Mass/Vol] 1.17 mg/dL Normal 0.60-1.20 [facility] Comment on above: Order Comment: No: D o not add to previous draw Performed By: #### 1 69, 98065 ####[facility] [place] [address], [place] eGFR- 55 ml/min/1.73sq m Abnormal >60 [facility] Comment on above: Order Comment: No: D o not add to previous draw Result Comment: Calc ulation may not be valid for patients over 70 years Performed By: #### 1 69, 77175 ####[facility] [place] [address], [facility] eGFR- non- 45 ml/min/1.73sq m Abnormal >60 The [facility] Comment on above: Order Comment: No: D o not add to previous draw Result Comment: Calc ulation may not be valid for patients over 70 years Performed By: #### 1 69, 74650 ####[facility] [facility] [id number], [facility] Glucose [Mass/Vol] 102 mg/dL High 70-100 [facility] Comment on above: Order Comment: No: D o not add to previous draw Performed By: #### 1 69, 66149 ####[facility] [facility] [place] [address], [facility] Potassium [Moles/Vol] 4.5 mmol/L Normal 3.5-5.1 [facility] Comment on above: Order Comment: No: D o not add to previous draw Performed By: #### 1 69, 67338 ####[facility] [facility] [place] [address], [place] Sodium [Moles/Vol] 133 mmol/L Low 136-145 [facility] Comment on above: Order Comment: No: D o not add to previous draw Performed By: #### 1 69, 07895 ####[facility] [facility] [id number], [facility] Urea nitrogen [Mass/Vol] 20 mg/dL Normal 7-25 [facility] Comment on above: Order Comment: No: D o not add to previous draw Performed By: #### 1 69, 60648 ####[facility] [facility] [place] [address], [facility] HEMOGLOBINon 04-24-2021 Hemoglobin (Bld) [Mass/Vol] 10.0 g/dL Low 12.0-15.0 [facility] Comment on above: Order Comment: Yes: Add to Previous draw if able NEEDS DRAWN. NO LAV TUBE FROM AM LABS Performed By: #### 9 9 #### [facility] [address] [place] [address], [facility] MAGNESIUM BLOODon 04-24-2021 Magnesium [Mass/Vol] 2.1 mg/dL Normal 1.9-2.7 [facility] Comment on above: Order Comment: No: D o not add to previous draw Performed By: #### 1 69, 90227 ####[facility] [facility] [place] [address], [facility] BASIC METABOLIC PANELon 04-12 Calcium [Mass/Vol] 8.4 mg/dL Low 8.6-10.3 The [facility] Comment on above: Order Comment: Unkno wn Performed By: #### 1 69, 64401, 80914 ####[facility] [facility] [place] [address], [facility] Chloride [Moles/Vol] 100 mmol/L Normal 98-107 [facility] Comment on above: Order Comment: Unkno wn Performed By: #### 1 69, 11277, 94937 ####[facility] [facility] [place] [address], [place] CO2 [Moles/Vol] 25 mmol/L Normal 21-31 The [facility] Comment on above: Order Comment: Unkno wn Performed By: #### 1 69, 69958, 38387 ####[facility] [facility] [place] [address], [place] Creatinine [Mass/Vol] 1.30 mg/dL High 0.60-1.20 The [facility] Comment on above: Order Comment: Unkno wn Performed By: #### 1 0, 16340, 88473 ####[facility] [place] [address], [facility] eGFR- 49 ml/min/1.73sq m Abnormal >60 The [facility] Comment on above: Order Comment: Unkno wn Result Comment: Calc ulation may not be valid for patients over 70 years Performed By: #### 1 0070, 33972, 08704 ####[facility] [place] [address], [facility] eGFR- non- 40 ml/min/1.73sq m Abnormal >60 The [facility] Comment on above: Order Comment: Unkno wn Result Comment: Calc ulation may not be valid for patients over 70 years Performed By: #### 1 0, 16607, 09092 ####[facility] [place] [address], [place] Glucose [Mass/Vol] 93 mg/dL Normal 70-100 [facility] Comment on above: Order Comment: Unkno wn Performed By: #### 1 0, 26322, 34985 ####[facility] [place] [address], [place] Potassium [Moles/Vol] 4.1 mmol/L Normal 3.5-5.1 [facility] Comment on above: Order Comment: Unkno wn Performed By: #### 1 0, 94518, 01356 ####[facility] [place] [address], [place] Sodium [Moles/Vol] 133 mmol/L Low 136-145 [facility] Comment on above: Order Comment: Unkno wn Performed By: #### 1 0, 36126, 68061 ####[facility] [place] [address], [place] Urea nitrogen [Mass/Vol] 20 mg/dL Normal 7-25 [facility] Comment on above: Order Comment: Unkno wn Performed By: #### 1 0070, 37387, 32646 ####[facility] [place] [address], [facility] CBC W/DIFFon 04-23-2021 ABS IMM GRANS 0.1 10*3/uL Normal 0.0-0.2 The [facility] Comment on above: Order Comment: Unkno wn Performed By: #### 5 0103 #### [facility] [address] [facility] [address], [facility] ABS NEUTROPHILS 7.8 10*3/uL High 1.6-7.6 The [facility] Comment on above: Order Comment: Unkno wn Performed By: #### 5 3 #### [facility] [address] [facility] [address], [facility] Basophils (Bld) [#/Vol] 0.1 10*3/uL Normal 0.0-0.2 The [facility] Comment on above: Order Comment: Unkno wn Performed By: #### 5 0103 #### [facility] [address] [facility] [place] [address], [facility] Basophils/100 WBC (Bld) 0.5 % Normal 0.0-1.0 T he [facility] Comment on above: Order Comment: Unkno wn Performed By: #### 5 3 #### [facility] [address] [facility] [place] [address], [facility] Eosinophils (Bld) [#/Vol] 0.4 10*3/uL Normal 0.0-0.5 [facility] Comment on above: Order Comment: Unkno wn Performed By: #### 5 3 #### [facility] [address] [place] [address], [facility] Eosinophils/100 WBC (Bld) 3.5 % Normal 0.0-6.0 [facility] Comment on above: Order Comment: Unkno wn Performed By: #### 5 0103 #### [facility] [address] [place] [address], [facility] Erythrocyte distribution width (RBC) [Ratio] 13.2 % Normal 11.5-15.0 [facility] Comment on above: Order Comment: Unkno wn Performed By: #### 5 0103 #### [facility] [address] [place] [address], [facility] Hematocrit (Bld) [Volume fraction] 29.2 % Low 36.0-45.0 [facility] Comment on above: Order Comment: Unkno wn Performed By: #### 5 3 #### [facility] [address] [place] [address], [facility] Hemoglobin (Bld) [Mass/Vol] 9.3 g/dL Low 12.0-15.0 [facility] Comment on above: Order Comment: Unkno wn Performed By: #### 5 3 #### [facility] [address] [place] [address], [facility] IMMATURE GRANS 0.6 % Normal 0.0-1.0 The [facility] Comment on above: Order Comment: Unkno wn Performed By: #### 5 3 #### [facility] [address] [place] [address], [facility] Lymphocytes (Bld) [#/Vol] 0.7 10*3/uL Low 1.2-4.0 [facility] Comment on above: Order Comment: Unkno wn Performed By: #### 3 #### [facility] [address] [place] [address], [facility] Lymphocytes/100 WBC (Bld) 6.8 % Low 20.0-45.0 [facility] Comment on above: Order Comment: Unkno wn Performed By: #### 5 3 #### [facility] [address] [place] [address], [facility] MCH (RBC) [Entitic mass] 33.5 pg High 27.0-33.0 [facility] Comment on above: Order Comment: Unkno wn Performed By: #### 5 0103 #### [facility] [address] [facility] [place] [address], [facility] MCHC (RBC) [Mass/Vol] 31.8 g/dL Low 32.0-35.0 [facility] Comment on above: Order Comment: Unkno wn Performed By: #### 5 0103 #### [facility] [address] [facility] [place] [address], [facility] MCV (RBC) [Entitic vol] 105.0 fL High 82.0-98.0 T [facility] Comment on above: Order Comment: Unkno wn Performed By: #### 5 102 #### [facility] [address] [facility] [address], [facility] Monocytes (Bld) [#/Vol] 1.0 10*3/uL Normal 0.1-1.0 [facility] Comment on above: Order Comment: Unkno wn Performed By: #### 5 3 #### [facility] [address] [facility] [place] [address], [facility] MONOS 10.0 % Normal 5.0-12.0 [facility] Comment on above: Order Comment: Unkno wn Performed By: #### 5 3 #### [facility] [address] [place] [address], [facility] Neutrophils/100 WBC (Bld) 78.6 % High 40.0-72.0 [facility] Comment on above: Order Comment: Unkno wn Performed By: #### 5 3 #### [facility] [address] [facility] [address], [facility] Nucleated RBC/100 WBC (Bld) [Ratio] 0 % Normal 0-0 [facility] Comment on above: Order Comment: Unkno wn Performed By: #### 5 0103 #### [facility] [address] [place] [address], [facility] PLAT CNT 227 10*3/uL Normal 150-400 The [facility] Comment on above: Order Comment: Unkno wn Performed By: #### 5 0103 #### [facility] [address] [place] [address], [facility] RBC (Bld) [#/Vol] 2.78 10*6/uL Low 3.80-5.00 The [facility] Comment on above: Order Comment: Unkno wn Performed By: #### 5 0103 #### [facility] [address] [facility] [place] [address], [facility] WBC (Bld) [#/Vol] 9.87 10*3/uL Normal 4.00-10.60 The [facility] Comment on above: Order Comment: Unkno wn Performed By: #### 5 0103 #### [facility] [address] MAGNESIUM BLOODon 04-23-2021 Magnesium [Mass/Vol] 2.1 mg/dL Normal 1.9-2.7 [facility] Comment on above: Order Comment: Unkno wn Performed By: #### 1 0, 02339, 31534 ####[facility] [facility].[address] PHOSPHORUS BLOODon Phosphate [Mass/Vol] 2.8 mg/dL Normal 2.5-5.0 [facility] Comment on above: Order Comment: Unkno wn Performed By: #### 1 0, 04178, 18036 ####[facility] [facility] [address], [facility] APTTon 04-22-2021 aPTT Coag (Bld) [Time] 27.6 s Normal 25.0-35.0 Th e [facility] Comment on above: Order Comment: No: [...] THIS PURPOSE. Performed By: #### 5 7307, 29375 #### [facility] [address] BASIC METABOLIC PANELon 11-1 Calcium [Mass/Vol] 8.8 mg/dL Normal 8.6-10.3 [facility] Comment on above: Order Comment: No: D o not add to previous draw Performed By: #### 4 1000, 47649, 04852, 30629 ####[facility] [facility].[address] Chloride [Moles/Vol] 99 mmol/L Normal 98-107 [facility] Comment on above: Order Comment: No: D o not add to previous draw Performed By: #### 4 1000, 00932, 46204, 00165 ####[facility] [facility].[address] CO2 [Moles/Vol] 27 mmol/L Normal 21-31 The [facility] Comment on above: Order Comment: No: D o not add to previous draw Performed By: #### 4 1000, 43280, 00521, 51896 ####[facility] [facility] [address], [facility] Creatinine [Mass/Vol] 1.39 mg/dL High 0.60-1.20 [facility] Comment on above: Order Comment: No: D o not add to previous draw Performed By: #### 4 1000, 48640, 41193, 93443 ####[facility] [place] [address], [place] eGFR- 45 ml/min/1.73sq m Abnormal >60 [facility] Comment on above: Order Comment: No: D o not add to previous draw Result Comment: Calc ulation may not be valid for patients over 70 years Performed By: #### 4 1000, 51431, 81517, 90576 ####[facility] [place] [address], [facility] eGFR- non- 37 ml/min/1.73sq m Abnormal >60 The [facility] Comment on above: Order Comment: No: D o not add to previous draw Result Comment: Calc ulation may not be valid for patients over 70 years Performed By: #### 4 1000, 40253, 23216, 01796 ####[facility] [place] [address], [place] Glucose [Mass/Vol] 91 mg/dL Normal 70-100 The [facility] Comment on above: Order Comment: No: D o not add to previous draw Performed By: #### 4 1000, 49286, 87047, 66505 ####[facility] [place] [address], [place] Potassium [Moles/Vol] 4.4 mmol/L Normal 3.5-5.1 [facility] Comment on above: Order Comment: No: D o not add to previous draw Performed By: #### 4 1000, 19615, 06110, 19697 ####[facility] [place] [address], [place] Sodium [Moles/Vol] 133 mmol/L Low 136-145 The [facility] Comment on above: Order Comment: No: D o not add to previous draw Performed By: #### 4 1000, 79730, 62052, 85243 ####[facility] [place] [address], [place] Urea nitrogen [Mass/Vol] 24 mg/dL Normal 7-25 [facility] Comment on above: Order Comment: No: D o not add to previous draw Performed By: #### 4 1000, 00742, 89769, 65658 ####[facility] [place] [address], [facility] CBC W/DIFFon 04-22-2021 ABS IMM GRANS 0.0 10*3/uL Normal 0.0-0.2 The [facility] Comment on above: Performed By: #### 5 0103 #### [facility] [address] [place] [address], [facility] ABS NEUTROPHILS 5.8 10*3/uL Normal 1.6-7.6 The [facility] Comment on above: Performed By: #### 5 0103 #### [facility] [address] [facility] [place] [address], [facility] Basophils (Bld) [#/Vol] 0.1 10*3/uL Normal 0.0-0.2 [facility] Comment on above: Performed By: #### 5 0103 #### [facility] [address] [facility] [place] [address], [facility] Basophils/100 WBC (Bld) 0.6 % Normal 0.0-1.0 [facility] Comment on above: Performed By: #### 5 0103 #### [facility] [address] [facility] [place] [address], [facility] Eosinophils (Bld) [#/Vol] 0.2 10*3/uL Normal 0.0-0.5 [facility] Comment on above: Performed By: #### 5 0103 #### [facility] [address] [facility] [place] [address], [facility] Eosinophils/100 WBC (Bld) 2.7 % Normal 0.0-6.0 [facility] Comment on above: Performed By: #### 5 0103 #### [facility] [address] [facility] [place] [address], [facility] Erythrocyte distribution width (RBC) [Ratio] 13.0 % Normal 11.5-15.0 [facility] Comment on above: Performed By: #### 5 0103 #### [facility] [address] [facility]. [address] Hematocrit (Bld) [Volume fraction] 29.2 % Low 36.0-45.0 [facility] Comment on above: Performed By: #### 5 0103 #### [facility] [address] [facility] [address], [facility] Hemoglobin (Bld) [Mass/Vol] 9.6 g/dL Low 12.0-15.0 [facility] Comment on above: Performed By: #### 5 0103 #### [facility] [address] IMMATURE GRANS 0.5 % Normal 0.0-1.0 The [facility] Comment on above: Performed By: #### 5 0103 #### [facility] [address] [place] [address], [facility] Lymphocytes (Bld) [#/Vol] 1.1 10*3/uL Low 1.2-4.0 [facility] Comment on above: Performed By: #### 5 3 #### [facility] [address] [place] [address], [facility] Lymphocytes/100 WBC (Bld) 13.4 % Low 20.0-45.0 [facility] Comment on above: Performed By: #### 5 3 #### [facility] [address] [facility] [place] [address], [facility] MCH (RBC) [Entitic mass] 33.1 pg High 27.0-33.0 [facility] Comment on above: Performed By: #### 5 3 #### [facility] [address] [facility] [place] [address], [facility] MCHC (RBC) [Mass/Vol] 32.9 g/dL Normal 32.0-35.0 [facility] Comment on above: Performed By: #### 5 0103 #### [facility] [address] [facility] [place] [address], [facility] MCV (RBC) [Entitic vol] 100.7 fL High 82.0-98.0 T [facility] Comment on above: Performed By: #### 5 0103 #### [facility] [address] [facility] [place] [address], [facility] Monocytes (Bld) [#/Vol] 0.7 10*3/uL Normal 0.1-1.0 [facility] Comment on above: Performed By: #### 5 0103 #### [facility] [address] [facility] [place] [address], [facility] MONOS 9.1 % Normal 5.0-12.0 [facility] Comment on above: Performed By: #### 5 3 #### [facility] [address] [facility] [address], [facility] Neutrophils/100 WBC (Bld) 73.7 % High 40.0-72.0 [facility] Comment on above: Performed By: #### 5 3 #### [facility] [address] [facility] [place] [address], [facility] Nucleated RBC/100 WBC (Bld) [Ratio] 0 % Normal 0-0 [facility] Comment on above: Performed By: #### 5 3 #### [facility] [address] [facility] [address], [facility] PLAT CNT 234 10*3/uL Normal 150-400 The [facility] Comment on above: Performed By: #### 5 3 #### [facility] [address] [place] [id number], [facility] RBC (Bld) [#/Vol] 2.90 10*6/uL Low 3.80-5.00 The [facility] Comment on above: Performed By: #### 5 0103 #### [facility] [address] [facility] [place] [address], [facility] WBC (Bld) [#/Vol] 7.81 10*3/uL Normal 4.00-10.60 The [facility] Comment on above: Performed By: #### 5 0103 #### [facility] [address] [facility] [place], [place] [id number] [place] [address] FERRITINon 04-22-2021 Ferritin [Mass/Vol] 74 ng/mL Normal 11-307 The [facility] Comment on above: Order Comment: No: D o not add to previous draw Performed By: #### 8 4044, 97708, 15292, 50218, 84614, 70328 ####[facility] FOLATE SERUMon 04-22-2021 SERUM FOLATE 29.00 ng/mL Normal 6.60-1000.0 0 [facility] Comment on above: Order Comment: No: D o not add to previous draw Result Comment: Norm al range reflects World [employer] International Standard /178 Performed By: #### 8 4044, 52834, 84551, 83622, 16316, 15993 ####[facility] HAPTOGLOBINon 04-22-2021 HAPTOGLOBIN 302 mg/dL High 26-164 [facility] Comment on above: Order Comment: No: D o not add to previous draw Performed By: #### 3 0103 #### [facility] [address] [place] [address], [facility] KNEE LEFT 1 OR 2 VWSon 04-22 KNEE LEFT 1 OR 2 VWS [facility] Department of Radiology [address] [place] [id number] Patient Name: LINDA NASCIMENTO : 1950 Sex: F Age: Race: White Pt. Location: [id number] Patient Status: I Ordered Date: 04/22/2021 2:30:00 AM Completed Date: 04/22/2021 02:52 AM Requesting Provider: GUNNAR CHRISTIANSON Attending Provider: ROBERTA VELA Report Copy To: Signs & Symptoms: Pain ( specify Location) History: See Comments Comments: evaluate for FX Exam: KNEE LEFT 1 OR 2 S KNEE LEFT 1 OR 2 S 04/22/2021 [...] report. Electronically signed: Boris Jara. Transcribed by: [email or web address], User Resident: NITHIN GARAY Electronically Signed by: BORIS JARA @ 04/22/2021 03:09 AM I personally read this/these film(s) with this resident Normal [facility] Comment on above: Order Comment: No: D o not add to previous draw KNEE RIGHT 1 OR 2 [facility] 04-12 KNEE RIGHT 1 OR 2 S [facility] Department of Radiology [address] [place] [id number] Patient Name: LINDA NASCIMENTO : 1950 Sex: F Age: Race: White Pt. Location: [id number] Patient Status: I Ordered Date: 04/22/2021 2:30:00 AM Completed Date: 04/22/2021 02:52 AM Requesting Provider: GUNNAR CHRISTIANSON Attending Provider: ROBERTA VELA Report Copy To: Signs & Symptoms: Pain ( specify Location) History: See Comments Comments: evaluate for FX Exam: KNEE RIGHT 1 OR 2 [facility] KNEE RIGHT 1 OR 2 [facility] 04/22/2021 2:52 AM CLINICAL INDICATIONS: Pain [...] acute fracture Approved by:Nithin Burnette04/22/2021 2:57 AM. IBoris,have reviewed the image(s) and agree with the findings in this report. Electronically signed: Boris Jara. Transcribed by: [email or web address], User Resident: NITHIN GARAY Electronically Signed by: BORIS JARA @ 04/22/2021 03:09 AM I personally read this/these film(s) with this resident Normal [facility] Comment on above: Order Comment: No: D o not add to previous draw LDH BLOODon 04-22-2021 LDH 232 Units/L Normal 140-271 The [facility] Comment on above: Order Comment: No: D o not add to previous draw Performed By: #### 8 4044, 05693, 20570, 66719, 70271, 45283 ####[facility] [place] [address], [facility] LIVER BATTERYon 04-22-2021 Albumin [Mass/Vol] 3.9 g/dL Normal 3.5-5.7 [facility] Comment on above: Order Comment: No: D o not add to previous draw Performed By: #### 5 7307, 21072 #### [facility] [address] [place] [address], [facility] ALKALINE PHOSPH 74 IU/L Normal 34-104 The [facility] Comment on above: Order Comment: No: D o not add to previous draw Performed By: #### 5 7307, 00129 #### [facility] [address] [place] [address], [facility] ALT [Catalytic activity/Vol] 9 U/L Normal 7-52 [facility] Comment on above: Order Comment: No: D o not add to previous draw Performed By: #### 5 7307, 65939 #### [facility] [address] [place] [address], [facility] AST [Catalytic activity/Vol] 19 U/L Normal 13-39 [facility] Comment on above: Order Comment: No: D o not add to previous draw Performed By: #### 5 7307, 74271 #### [facility] [address] [place] [address], [facility] Bilirubin [Mass/Vol] 0.5 mg/dL Normal 0.3-1.0 [facility] Comment on above: Order Comment: No: D o not add to previous draw Performed By: #### 5 7307, 21865 #### [facility] [address] [place] [address], [facility] Bilirubin.direct [Mass/Vol] 0.1 mg/dL Normal 0.0-0.2 [facility] Comment on above: Order Comment: No: D o not add to previous draw Performed By: #### 5 7307, 85850 #### [facility] [address] [place] [id number], [facility] Protein [Mass/Vol] 6.5 g/dL Normal 6.0-8.3 The [facility] Comment on above: Order Comment: No: D o not add to previous draw Performed By: #### 5 7307, 55373 #### [facility] [address] [place] [id number], [facility] MAGNESIUM BLOODon 04-22-2021 Magnesium [Mass/Vol] 2.0 mg/dL Normal 1.9-2.7 [facility] Comment on above: Order Comment: No: D o not add to previous draw Performed By: #### 4 1000, 05209, 10005, 50634 ####[facility] [place] [address], [facility] PERIPHERAL SMEARon 1 Nucleated RBC/100 WBC (Bld) [Ratio] 0 % Normal 0-0 [facility] Comment on above: Order Comment: No: D o not add to previous draw Performed By: #### 5 7307, 92066 #### [facility] [address] [place] [id number], [facility] OTHER PS1 Macrocytic anemia with no significant RBC morphology. Normal [facility] Comment on above: Order Comment: No: D o not add to previous draw Performed By: #### 5 7307, 47323 #### [facility] [address] OTHER PS2 Check serum B12 and folate. Normal [facility] Comment on above: Order Comment: No: D o not add to previous draw Performed By: #### 5 7307, 69914 #### [facility] [address] [place] [address], [facility] OTHER PS3 Otherwise unremarkable leukocytes and platelets. Normal [facility] Comment on above: Order Comment: No: D o not add to previous draw Performed By: #### 5 7307, 11537 #### [facility] [address] OTHER PS4 Normal [facility] Comment on above: Order Comment: No: D o not add to previous draw Result Comment: Chec ked by Mayra Encinas M.D. Performed By: #### 5 7307, 22171 #### [facility] [address] PHOSPHORUS BLOODon 1 Phosphate [Mass/Vol] 3.4 mg/dL Normal 2.5-5.0 [facility] Comment on above: Order Comment: No: D o not add to previous draw Performed By: #### 5 7307, 01299 #### [facility] [address] PROTHROMBIN TIMEon 1 INR Coag (PPP) [Relative time] 1.01 {INR} Normal 0.91-1.16 [facility] Comment on above: Order Comment: No: D o not add to previous draw Result Comment: [facility] P RECOMMENDED INR FOR WARFARIN THERAPY ------- [...] CHEST 1995;108:231S-246S. Performed By: #### 5 7307, 91056 #### [facility] [address] PT Coag (PPP) [Time] 13.3 s Normal 12.3-14.8 [facility] Comment on above: Order Comment: No: D o not add to previous draw Result Comment: ALL RESULTS MUST BE INTERPRETED WITH RESPECT TO BLOOD DRAWING ARTIFACT OR DILUTION ERROR OF ANTICOAGULANT AT THE TIME OF SAMPLING. Performed By: #### 5 7307, 00707 #### [facility] [address] RETICULOCYTE PANELon 11-11-2 021 ABSOLUTE RETICULOCYTE 0.0711 10*6/uL Normal 0.02 50-0.10 00 [facility] Comment on above: Order Comment: No: D o not add to previous draw Performed By: #### 5 7307, 24896 #### [facility] [address] [facility] [address] IMMATURE RETICULOCYTE FRACTION 12.8 % Normal 2.0-16.0 [facility] Comment on above: Order Comment: No: D o not add to previous draw Performed By: #### 5 7307, 62601 #### [facility] [address] [facility] [address] RETIC COUNT 2.37 % High 0.50-1.80 The [facility] Comment on above: Order Comment: No: D o not add to previous draw Performed By: #### 5 7307, 39891 #### [facility] [address] RETICULOCYTE HEMOGLOBIN 37.5 pg High 28.0-36.0 T he [facility] Comment on above: Order Comment: No: D o not add to previous draw Performed By: #### 5 7307, 27605 #### [facility] [address] TIBC- INCLUDES IRONon 2020 FE SATURATION 16 % Low 20-50 The [facility] Comment on above: Order Comment: No: D o not add to previous draw Performed By: #### 8 4044, 63874, 92313, 29135, 56319, 83435 ####[facility]3000 [facility].[address] Iron [Mass/Vol] 54 ug/dL Normal 50-212 The [facility] Comment on above: Order Comment: No: D o not add to previous draw Performed By: #### 8 4044, 07779, 38171, 27197, 38143, 48306 ####[facility] [facility].[address] TIBC 332 mcg/dL Normal 250-450 [facility] Comment on above: Order Comment: No: D o not add to previous draw Performed By: #### 8 4044, 96064, 49830, 54871, 33253, 70000 ####[facility] UIBC 278 mcg/dL Normal 155-355 [facility] Comment on above: Order Comment: No: D o not add to previous draw Performed By: #### 8 4044, 10108, 33874, 06399, 92913, [id number] ####[facility]3000 PRAFUL GARCIA.[address] TSH3 WITH REFLEX FT4on 04-22 TSH 3RD GENERATION 1.72 uIU/mL Normal 0.34-5.60 [facility] Comment on above: Performed By: #### 8 [id number], 39215, 12337, 97603, 17493, 68918 ####[facility]3000 [facility] VITAMIN B12on 04-22-2021 Cobalamin (Vitamin B12) [Mass/Vol] 771 pg/mL Normal 180-914 [facility] Comment on above: Order Comment: No: D o not add to previous drawPt using restroom Result Comment: REFE RENCE RANGES: 180-914 pg/mL Normal 145-179 pg/mL Indeterminate <145 pg/mL Deficient Performed By: #### 8 4044, 75617, 76098, 08445, 92846, 05001 ####[facility]3000 [facility].[address] Vital Signs Date Time Vital Sign Value Performing Clinician Lourdesi lucita 10-06-2021 14:00-0400 Body height 165.1 cm Gunnra Fernandez Other [facility] Other 10-06-2021 14:00-0400 Body mass index (BMI) [Ratio] 40.77 kg/m2 Gunnar Fernandez Other [facility] Other 10-06-2021 14:00-0400 Body weight 111.13 kg Gunnar Fernandez Other [facility] Other Encounters Encounter Date Encounter Type Care Provider Facility Start: 07-31-2024 End: 07-31-[address] Mehta MD Work Phone: [facility] Work Phone: Start: 07-31-2024 End: 07-31-[address] Mehta MD Work Phone: [facility] Work Phone: Start: 05-21-2024 End: 05-21-2024 ambulatory [facility] Start: 10-31-2023 End: 10-31-2023 ambulatory [facility] Start: 03-20-2023 End: 03-21-2023 ambulatory Ирина Gibson MD Facility: [place] Start: 01-23-2023 End: 01-24-2023 ambulatory Ирина Gibson MD Facility: [place] Start: 01-09-2023 End: 01-10-2023 ambulatory Ирина Gibson MD Facility[facility] Start: 12-12-2022 End: 12-13-2022 ambulatory Ирина Gibson MD Facility:[facility] Start: 10-25-2022 ambulatory LEÓN DIAS Faci lity:H1 Start: 10-14-2022 End: 10-14-2022 ambulatory LEONIE [...] Facility:H1 Start: 04-21-2022 End: 04-22-[address] VAE MEHTA . Facility:[facility]1 Start: 04-08-2022 End: 04-09-2022 ambulatory [facility] Facility:H1 Start: 03-30-2022 End: 03-30-2022 ambulatory Rancho Chamorro Other [facility] Other Start: 03-30-2022 Telephone encounter Rancho BAKER [facility] Start: 03-28-2022 End: 03-29-[address] MEHTA . Facility:[facility]1 Start: 03-27-[address] MEHTA . Facili ty:H1 Start: 03-24-2022 Office outpatient vi sit 25 minutes Rancho Chamorro [facility] Start: 03-24-2022 End: 04-03-2022 ambulatory UNKNOWN PROVIDER [facility] Other Start: 03-16-2022 End: 03-16-2022 ambulatory Rancho Chamorro Other [facility] Other Start: 03-16-2022 Telephone encounter Rancho BAKER G [facility] Start: 03-11-2022 End: 03-12-2022 ambulatory [facility] Facility:H1 Start: 02-18-2022 End: 02-19-2022 ambulatory [facility] Facility:H1 Start: 02-11-2022 End: 02-12-[address] MEHTA . Facility:[facility]1 Start: 01-28-2022 End: 01-29-2022 ambulatory [facility] Facility:H1 Start: 01-11-2022 End: 01-12-[address] MEHTA . Facility:H1 Start: 01-04-2022 End: 01-05-2022 ambulatory [facility] Facility:H1 Start: 12-23-2021 End: 12-23-2021 ambulatory Rancho Chamorro Other [facility] Other Start: 12-23-2021 Office outpatient vi sit 25 minutes Rancho Chamorro [facility] Start: 12-20-2021 End: 12-21-2021 ambulatory LEÓN Tejada [facility] Facility:H1 Start: 12-13-2021 End: 12-14-2021 Evaluation and management of inpatient DR AVE MEHTA . Facility:H1 Start: 12-07-2021 Encounter for preprocedural cardiovascular examination [facility] Mallory [facility] Start: 12-06-2021 End: 12-06-2021 ambulatory [facility] Mallory [facility] Facility:H1 Start: 12-05-2021 End: 12-05-[address] MEHTA . Facility:H1 Start: 12-02-2021 End: 12-03-2021 ambulatory [facility] Facility:H1 Start: 12-02-2021 End: 12-03-2021 Encounter for preprocedural cardiovascular examination [facility] Facility:H1 Start: 11-30-2021 End: 12-01-2021 ambulatory [facility] Facility:H1 Start: 11-29-2021 End: 11-29-2021 ambulatory MIRNA PARSONS . Facility:H1 Start: 11-17-2021 End: 11-17-2021 ambulatory Rancho Chamorro Other [facility] Other Start: 11-17-2021 Office outpatient vi sit 15 minutes Emilie Perez [facility] Start: 11-17-2021 Telephone encounter Rancho BAKER [facility] Start: 11-04-2021 End: 11-04-2021 ambulatory Rancho Chamorro Other [facility] Other Start: 11-04-2021 Telephone encounter Rancho BAKER G [facility] Start: 11-03-2021 (Procedure) Short Rancho Chamorro [facility] Start: 11-03-2021 End: 11-03-2021 ambulatory Rancho Chamorro Other [facility] Other Start: 11-03-2021 Office outpatient vi sit 25 minutes Emilie Perez [facility] Start: 10-28-2021 End: 10-28-2021 ambulatory Rancho Chamorro Other [facility] Other Start: 10-28-2021 Office outpatient vi sit 25 minutes Rancho Chamorro [facility] Start: 10-07-2021 End: 10-07-2021 ambulatory Gunnar Fernandez Other [facility] Other Start: 10-07-2021 Telephone encounter Gunnar Fernandez [facility] Start: 10-06-2021 End: 10-06-2021 ambulatory Gunnar Fernandez Other [facility] Other Start: 10-06-2021 Office outpatient vi sit 15 minutes Gunnar Fernandez [facility] Start: 09-08-2021 End: 09-08-2021 ambulatory Gunnar Fernandez Other [facility] Other Start: 09-08-2021 Office outpatient vi sit 15 minutes Gunnar Fernandez [facility] Start: 04-22-2021 End: 04-29-2021 Evaluation and management of inpatient ROBERTA DANE Facility:[facility] Procedures Date Procedure Procedure Detail Performing Clinician Start: 12-12-2021 Transfusion of Nonau tologous Red Blood Cells into Peripheral Vein, Percutaneous Approach DR AVE MEHTA . Plan of Treatment Date Care Activity Detail Author Start: 07-31-2024 Aldolase measurement [facility] Start: 07-31-2024 Hemolytic complement CH50 level [facility] Start: 07-31-2024 Hepatitis B core ant ibody measurement [facility] Start: 07-31-2024 [facility] Angiotensin converti ng enzyme [Enzymatic activity/volume] in Serum or Plasma [facility] Chromatin Ab [Units/ volume] in Serum or Plasma [facility] Complement C3 [Mass/ volume] in Serum or Plasma [facility] Complement C4 [Mass/ volume] in Serum or Plasma [facility] Hepatitis B virus hernandez rface Ab [Presence] in Serum [facility] Hepatitis B virus hernandez rface Ag [Presence] in Serum or Plasma by Immunoassay [facility] Hepatitis C virus Ig G Ab [Presence] in Serum or Plasma by Immunoassay [facility] Homogenous nuclear A b pattern [Titer] in Serum [facility] Nuclear Ab [Titer] in Serum [facility] Reagin Ab [Presence] in Serum by RPR [facility] Thyroglobulin Ab [Un its/volume] in Serum or Plasma [facility] Thyroperoxidase Ab [ Units/volume] in Serum or Plasma [facility] Immunizations Immunization Date Immunization Notes Care Provider Fa cility 07-13-2020 COVID-19 mRNA Comirnatmilo (Pfizer) Ave Mehta MD Work Phone: [facility] 06-19-2020 COVID-19 mRNASarah (Pfizer) Ave Mehta MD Work Phone: [facility] Payers Date Payer Category Payer Self-pay 2023 Medicaid [id number] 2022 Medicare 2022 Unknown 2002 Medicare [id number] 1959 Medicare [id number] 1959 Self-pay [id number] 1959 Unknown [id number] 1948 Unknown [id number] 2.16.8 40.1.271751.3.579.2.647 1948 Unknown [id number] 2.16. 840.1.756408.3.579.2.732 1948 Unknown [id number] 2.16.84 0.1.723871.3.579.2.593 1948 Unknown [id number] 2.16.84 0.1.541977.3.579.2.593 1948 Unknown [id number] 2.16.84 0.1.794951.3.579.2.593 1948 Unknown [id number] 2.16.84 0.1.962935.3.579.2.593 1948 Unknown [id number] 2.16.84 0.1.305327.3.579.2.593 1948 Unknown [id number] 2.16.84 0.1.228389.3.579.2.593 1948 Unknown [id number] 2.16.84 0.1.506838.3.579.2.593 1948 Unknown [id number] 2.16.84 0.1.370974.3.579.2.593 1948 Unknown [id number] 2.16.84 0.1.195317.3.579.2.593 1948 Unknown [id number] 2.16.84 0.1.589848.3.579.2.593 1948 Unknown [id number] 2.16.84 0.1.370825.3.579.2.593 1948 Unknown [id number] 2.16.84 0.1.298488.3.579.2.593 1948 Unknown [id number] 2.16.84 0.1.295945.3.579.2.593 1948 Unknown [id number] 2.16.84 0.1.534946.3.579.2.593 1948 Unknown [id number] 2.16.84 0.1.407032.3.579.2.593 1948 Unknown [id number] 2.16.84 0.1.461809.3.579.2.593 1948 Unknown [id number] 2.16.84 0.1.287348.3.579.2.593 1948 Unknown [id number] 2.16.84 0.1.162330.3.579.2.593 1948 Unknown [id number] 2.16.84 0.1.896871.3.579.2.593 1948 Unknown [id number] 2.16.84 0.1.770684.3.579.2.593 1948 Unknown [id number] 2.16.84 0.1.083115.3.579.2.593 1948 Unknown [id number] 2.16.84 0.1.481163.3.579.2.593 1948 Unknown [id number] 2.16.84 0.1.576771.3.579.2.593 1948 Unknown [id number] 2.16.84 0.1.671521.3.579.2.593 1948 Unknown [id number] 2.16.84 0.1.332838.3.579.2.593 1948 Unknown [id number] 2.16.84 0.1.631384.3.579.2.593 1948 Unknown [id number] 2.16.84 0.1.256298.3.579.2.593 1948 Unknown [id number] 2.16.84 0.1.124481.3.579.2.593 1948 Unknown [id number] 2.16. 840.1.434462.3.579.2.196 1948 Unknown [id number] 2.16. 840.1.560558.3.579.2.196 1948 Unknown [id number] 2.16. 840.1.755116.3.579.2.196 1948 Unknown [id number] 2.16. 840.1.715728.3.579.2.196 Unknown [id number] 2.16.84 0.1.557106.3.579.2.593 Unknown [facility] Health Claims [id number] Unknown [id number] 2.16.8 40.1.908412.3.579.2.531 Social History Date Type Detail Facility Sex Assigned At [facility] Other Start: [facility]07-[facility]21 [facility] Start: 08-01-2024 Sex Female (finding) [facility] Start: 1950 Sex Assigned At Female F [facility] Clinical Notes 04-29-2021 to 05-21-2024 Note Date & Type Note Facility 05-21-2024 Note [place] Electrophys[place] Consult Note [place] Reason for visit: 05/21/24 Pt has [...] with prior history of transferred from an [facility] to [facility] following a fall that she sustained. She was noted to be bradycardic and EKG at that time showed her to have bradycardia in the rate of 30s following admission to [facility] she was noted to have a first-degree [...] ANGIOGRAM W AND/OR WO IV CONTRAST 04/23/[address] [facility] [address] CT CHEST ANGIOGRAM W AND/OR WO IV CONTRAST 04/23/2022 CT CHEST ANGIOGRAM W AND/OR WO IV CONTRAST 04/23/[address] [facility] [address] IMAGING TONSILLECTOMY SH: Social Determinants of [...] Partner Violence: Unkn (more content not included)... [facility] 10-31-2023 Note [place] Electrophysiology Consult Note [place] [facility] Reason for visit: 10/30/20 Patient [...] with prior history of transferred from an [facility] to [facility] following a fall that she sustained. She was noted to be bradycardic and EKG at that time showed her to have bradycardia in the rate of 30s following admission to [facility] she was noted to have a first-degree [...] ANGIOGRAM W AND/OR WO IV CONTRAST 04/23/[address] [facility] [address] IM[address] CT CHEST ANGIOGRAM W AND/OR WO IV CONTRAST 04/23/2022 CT CHEST ANGIOGRAM W AND/OR WO IV CONTRAST 04/23/[address] [facility] [address] IMAGING TONSILLECTOMY SH: Social Determinants of [...] on file Intimate Partner Violence: Unknown (08/03/2023) [place] Safety & Environment Fear of Current or Ex-Partner: Not on file Emotionally Abused: Not on file Physically Abused: Not on file Sexually Abused: Not on file Physically or Sexually Abused: Not on file Depression: Not on file Housing Stability: Not on file Utilities: Not on file Allergies: Allergies Allergen Reactions House Dust Unknown Pollen Extr (more content not included)... [facility] 03-30-2022 Evaluation note Encounter Date Diagnosis Assessment Notes Mar, Other spondylosis with radiculopathy, lumbar region (ICD-10 - M47.26) [facility] 10-13-2022 Evaluation note* Encounter Date Diagnosis [...] note writ ten by Summer Molina LPN, Tool Profiling Machine Set Up Operator. Edited and approved by Dr. Rancho Chamorro MD. [facility] Other 10-05-2022 Evaluation note* Encounter Date Diagnosis Assessment Notes Treatment Notes Treatment Clinical Notes Mar, Other low back pain (ICD-10 - M54.59) [facility] 07-14-2022 Evaluation note* Encounter Date Diagnosis [...] note writ ten by Mika Villalobos MA, Tool Profiling Machine Set Up Operator. Edited and approved by Dr. Rancho Chamorro MD. [facility] Other 06-08-2022 Evaluation note* Encounter Date Diagnosis [...] note writ ten by Mika Villalobos MA, Tool Profiling Machine Set Up Operator. Edited and approved by Dr. Rancho Chamorro MD. [facility] Other 06-08-2022 Evaluation note* Encounter Date Diagnosis [...] four weeks, case discussed with Dr. Diaz [facility] has been contacted and will consult wound care. [facility] Other 05-25-2022 Evaluation note* Encounter Date Diagnosis [...] for Keflex BID x 14 days and Sunset. Patient and sister instructed to contact office with any signs of infection or significant changes [facility] Other 05-19-2022 Evaluation note* Encounter Date Diagnosis [...] note writ ten by Summer Molina LPN, Tool Profiling Machine Set Up Operator. Edited and approved by Dr. Rancho Chamorro MD. [facility] Other 04-28-2022 Evaluation note* Encounter Date Diagnosis Assessment Notes Treatment Notes Treatment Clinical Notes Sep, Pacemaker (ICD-10 - Z95.0) [facility] Other 04-27-2022 Evaluation note* Encounter Date Diagnosis [...] spinal osteoarthritis complication status (ICD-10 - M47.816) [facility] Other 03-30-2022 Evaluation note* Encounter Date Diagnosis [...] D. To call with questions or concerns. [facility] Other 11-18-2021 NoteMR#: [id number] I [facility] Pt. Name: Linda Nascimento Admitted: 04/21/2021 [...] The patient was subsequently transferred to the [facility] for higher level of care. Cardiology and [...] Lozada MD Date Trans: 04/29/2021 12:17 P/roni [id number] cc: Leslie Arroyo M.D. [address] [place] [address]. Mailstop [address] [facility] [address] M[address] [facility] [place] [address]XesAultman HospitalEvaluation noteNo InformationNort StudyEgg Other Evaluation noteNo assessment information available [facility] Work Phone: Hisaw[facility] general Narrative - Reported* Type Description Date Medical History bipolar Medical History Arthritis Medical History high blood pressure Medical History chronic depression Medical History iron deficiency anemia Medical History kidney disease Medical History hyperlipidemia Medical History anxiety Medical History vitamin D deficiency Surgical History tonsillectomy Surgical History laparoscopy Hospitalization History depression [facility] Other Summary Purpose Family History No Family [...] and content) DATE CREATED AUTHOR 05/30/2021 [facility] DATE CREATED AUTHOR AUTHOR'S ORGANIZ ATION 04/05/2022 [facility] DATE CREATED AUTHOR AUTHOR'S ORGANIZ ATION 10/19/2022 [facility] DATE CREATED AUTHOR AUTHOR'S ORGANIZ ATION 03/27/2023 [facility] DATE CREATED AUTHOR AUTHOR'S ORGANIZ ATION 05/10/2024 [facility] DATE CREATED AUTHOR AUTHOR'S ORGANIZ ATION 05/24/2024 [facility] DATE CREATED AUTHOR AUTHOR'S ORGANIZ ATION 08/09/2024 [facility] REASON FOR VISIT (unrecogniz [...] BE BASED ON THE PRIMARY CLINICAL RECORDS. [facility] [employer] provides no warranty or guarantee of the accuracy or completeness of information in this document.
== END 2024-09-03 10:16 | disposition home or self-care (01) ==
LOC: WC 10:15
PROVIDERS: PCP Family Medicine; Visit Provider Physician Assistant
DX: I87.313 Chronic venous hypertension (idiopathic) with ulcer of bilateral lower extremity (principal); L97.822 Non-pressure chronic ulcer of other part of left lower leg with fat layer exposed; L97.811 Non-pressure chronic ulcer of other part of right lower leg limited to breakdown of skin
CPT/HCPCS: 29580

== ENCOUNTER 2024-09-24 13:27 | Outpatient (OUT) | payer MEDICARE, OTHER, MEDICAID, SELFPAY | END 2024-09-24 13:28 | disposition home or self-care (01) | LOC: WC 13:27 | PROVIDERS: PCP Family Medicine; Visit Provider Physician Assistant | DX: I87.313 Chronic venous hypertension (idiopathic) with ulcer of bilateral lower extremity (principal); L97.822 Non-pressure chronic ulcer of other part of left lower leg with fat layer exposed; L97.811 Non-pressure chronic ulcer of other part of right lower leg limited to breakdown of skin; L97.818 Non-pressure chronic ulcer of other part of right lower leg with other specified severity | CPT/HCPCS: 29580 ==

== ENCOUNTER 2024-10-22 10:52 | Outpatient (OUT) | payer MEDICARE, OTHER, MEDICAID, SELFPAY | END 2024-10-22 10:53 | disposition home or self-care (01) | LOC: WC 10:53 | PROVIDERS: PCP Family Medicine; Visit Provider Physician Assistant | DX: I87.313 Chronic venous hypertension (idiopathic) with ulcer of bilateral lower extremity (principal); L97.822 Non-pressure chronic ulcer of other part of left lower leg with fat layer exposed; L97.811 Non-pressure chronic ulcer of other part of right lower leg limited to breakdown of skin | CPT/HCPCS: 29580 ==

== ENCOUNTER 2024-11-20 10:40 | Outpatient (OUT) | payer MEDICARE, OTHER, MEDICAID, SELFPAY ==
--- OUTSIDE RECORDS SUMMARY | 2024-11-20 10:43 | XMS_ITS | Clinical Summary ---
Author Organization [facility] Address [address] [place] [address] Care Team Providers Care Moisture Meter Operator Name Role Phone Benjamín Mehta MD Primary Care Provider [phone] Social History Tobacco Use Types Packs/Day Years Used Date Smoking Tobacco: Never Assessed Comments Unknown Sex and Gender Information Value Date Recorded Sex Assigned at Not on file Legal Sex Female 6:47 PM EDT Gender Identity Not on file Sexual Orientation Not on file Last Filed Vital Signs Vital Sign Reading Time Taken Comments Blood Pressure 128/84 10/14/2020 12:00 PM EDT Pulse - - Temperature - - Respiratory Rate - - Oxygen Saturation - - Inhaled Oxygen Concentration - - Weight 115 kg (253 lb) 12/19/2018 12:00 PM EDT Height 160 cm (5' 3 ) 10/14/2020 12:00 PM EDT Body Mass Index 44.82 12/19/2018 12:00 PM EDT Plan of Treatment Health Maintenance Due Date Last Done Comments Influenza Vaccine (Season Ended) 2025 03/11/2022, 03/29/2021, 03/03/2020, Additional history exists Mammogram Discontinued 10/02/2018, 09/11, 09/19/2017, Additional history exists Pneumococcal Vaccine: 65+ Years Completed 05/03/2019, 04/26/2017, 04/12/2017 Procedures Procedure Name Priority Date/Time Associated Diagnosis Comments BI MAMMOGRAM SCREENING TOMOSYNTHESIS BILATERAL Routine 10/02/2018 from Last 3 Months or Most Recently Relevant to Health Maintenance Results * Bilateral screening mammogram with tomosynthesis (10/02/2018) Anatomical Region Laterality Modality Breast Bilateral Mammography Narrative 10/02/2018 12:00 AM EDT PERFORMED AT [facility] LOCATION:[place] [address] Patient: TIGIST MARCIAL. Exam Date: 10/02/2018 : 1950 Gender:F Ordering : DR MAGGI MONROY Admission #: [id number] Family : DR BENJAMÍN MEHTA . Order #: [id number] CLICK HERE TO VIEW EXAM RADIOLOGY REPORT PROCEDURE: MAMMOGRAM BILATERAL SCREENING DIGITAL WITH COMPUTER AIDED DETECTION COMPARISON: MG MAMM SCREEN CHELSEY W CAD, 08/09/2016. MG MAMM SCREEN CHELSEY W CAD, 09/19/2017. INDICATIONS: Screening mammography Calculator Name NCI Breast Cancer Risk Assessment Tool 5 Year Breast Cancer Risk 1.90% Lifetime Breast Cancer Risk 5.60% Personal Breast Cancer No Personal Ovarian Cancer No Treatments None Family Cancers Mother with lung cancer at age 70. LOCATION: [facility] BREAST COMPOSITION: Heterogeneously dense, which may obscure small masses. FINDINGS: DIAGNOSTIC CATEGORY 2--BENIGN FINDING NO CHANGE FROM COMPARISON ASSESSMENT. Scattered benign-appearing nodules are present. Scattered benign-appearing calcifications are present. Scattered benign-appearing lymph nodes are present. RIGHT BREAST: No significant suspicious finding. Round mole marker. LEFT BREAST: No significant suspicious finding. RECOMMENDATIONS: ROUTINE MAMMOGRAM AND CLINICAL EVALUATION IN 12 MONTHS. PLEASE NOTE: A NORMAL MAMMOGRAM DOES NOT EXCLUDE THE POSSIBILITY OF BREAST CANCER. A CLINICALLY SUSPICIOUS PALPABLE LUMP SHOULD BE BIOPSIED. Dictated by: Andrew Castro M.D. on 10/02/2018 at 11:00 Approved by: Andrew Castro M.D. on 10/02/2018 at 11:01 Procedure Note CONVERSION, GENERIC - 12/16/2022 PERFORMED AT [facility] LOCATION:[place] [id number] [address] Patient: TIGIST MARCIAL. Exam Date: 10/02/2018 : 1950 Gender:F Ordering : DR MAGGI MONROY Admission #: [id number] Family : DR BENJAMÍN MEHTA . Order #: [id number] CLICK HERE TO VIEW EXAM RADIOLOGY REPORT PROCEDURE: MAMMOGRAM BILATERAL SCREENING DIGITAL WITH COMPUTER AIDED DETECTION COMPARISON: MG MAMM SCREEN CHELSEY W CAD, 08/09/2016. MG MAMM SCREEN BILW CAD, 09/19/2017. INDICATIONS: Screening mammography Calculator Name NCI Breast Cancer Risk Assessment Tool 5 Year Breast Cancer Risk 1.90% Lifetime Breast Cancer Risk 5.60% Personal Breast Cancer No Personal Ovarian Cancer No Treatments None Family Cancers Mother with lung cancer at age 70. LOCATION: [facility] BREAST COMPOSITION: Heterogeneously dense, which may obscuresmall masses. FINDINGS: DIAGNOSTIC CATEGORY 2--BENIGN FINDING NO CHANGE FROM COMPARISONASSESSMENT. Scattered benign-appearing nodules are present. Scatteredbenign-appearing calcifications are present. Scattered benign-appearing lymph nodes are present. RIGHT BREAST: No significant suspicious finding. Round mole marker. LEFT BREAST: No significant suspicious finding. RECOMMENDATIONS: ROUTINE MAMMOGRAM AND CLINICAL EVALUATION IN 12 MONTHS. PLEASE NOTE: A NORMAL MAMMOGRAM DOES NOT EXCLUDE THE POSSIBILITY OFBREAST CANCER. A CLINICALLY SUSPICIOUS PALPABLE LUMP SHOULD BE BIOPSIED. Dictated by: Andrew Castro M.D. on 10/02/2018 at 11:00 Approved by: Andrew Castro M.D. on 10/02/2018 at 11:01 Maggi Monroy MD IMG BI PROCEDURES Final Result from Last 3 Months or Most Recently Relevant to Health Maintenance Insurance [employer] [place] Care Teams Moisture Meter Operator Relationship Specialty Start Date End Date Benjamín Mehta MD PCP - General Family Medicine 12/09/22
== END 2024-11-20 10:41 | disposition home or self-care (01) ==
LOC: WC 10:40
PROVIDERS: PCP Family Medicine; Visit Provider Physician Assistant
DX: I87.313 Chronic venous hypertension (idiopathic) with ulcer of bilateral lower extremity (principal); L97.822 Non-pressure chronic ulcer of other part of left lower leg with fat layer exposed; L97.811 Non-pressure chronic ulcer of other part of right lower leg limited to breakdown of skin
CPT/HCPCS: A6213; G0463

== ENCOUNTER 2024-12-10 09:38 | Outpatient (OUT) | payer MEDICARE, OTHER, MEDICAID, SELFPAY ==
--- OUTSIDE RECORDS SUMMARY | 2024-12-10 09:40 | XMS_ITS | Clinical Summary ---
Author Organization [facility] Address [address] [place] [address] Care Team Providers Care Clinical Staff Pharmacist Name Role Phone Benjamín Mehta MD Primary Care Provider [phone] Social History Tobacco Use Types Packs/Day Years [...] Narrative 10/02/2018 12:00 AM EDT PERFORMED AT [facility] LOCATION:[place] [address] Patient: TIGIST MARCIAL. Exam Date: 10/02/2018 : 1950 Gender:F Ordering : DR MAGGI MONROY Admission #: [id number] Family : DR BENJAMÍN MEHTA . Order #: [id number] CLICK HERE TO VIEW EXAM RADIOLOGY REPORT [...] with lung cancer at age 68. LOCATION: [facility] BREAST COMPOSITION: Heterogeneously dense, which may obscure [...] Note CONVERSION, GENERIC - 12/16/2022 PERFORMED AT [facility] LOCATION:[place] [address] [address] Patient: TIGIST MARCIAL. Exam Date: 10/02/2018 : 1950 Gender:F Ordering : DR MAGGI MONROY Admission #: [id number] Family : DR BENJAMÍN MEHTA . Order #: [id number] CLICK HERE TO VIEW EXAM RADIOLOGY REPORT [...] lung cancer at age 68. LOCATION: [facility] BREAST COMPOSITION: Heterogeneously dense, which may [...] Relevant to Health Maintenance Insurance [employer]ARE [employer] [place] Care Teams Clinical Staff Pharmacist Relationship Specialty Start Date End Date Benjamín Mehta MD PCP - General Family Medicine 12/09/22
--- OUTSIDE RECORDS SUMMARY | 2024-12-10 09:40 | XMS_ITS | Referral Summary ---
Author Organization [facility] Address [address] [place] [address] Care Team Providers Care Internal Control Manager Name Role Phone Benjamín Navarrete MD Primary Care Provider [phone] Encounters Date Type Department Care Team Description 09/23/2024 4:55 PM EDT Ancillary Procedure [facility] [address] [place] [id number] Adjustment and management of cardiac pacemaker from Last 3 Months Allergies Active Allergy Reactions Criticality Noted Date Comments House Dust Unknown 11/18/2013 Pollen Extracts Unknown 11/18/2013 Medications carvedilol (Coreg) 25 mg tablet Take 25 mg by mouth with breakfast and with evening meal. Active ferrous sulfate 325 (65 Fe) MG tablet Take 65 mg by mouth with breakfast. Active OLANZapine (ZyPREXA) 10 mg tablet 10 mg at bedtime. Active potassium chloride CR (Klor-Con M10) 10 mEq ER tablet Take 10 mEq by mouth in the morning and at bedtime. Do not crush or chew. Active tamsulosin (Flomax) 0.4 mg 24 hr capsule Take 0.4 mg by mouth in the morning. Active tiZANidine (Zanaflex) 4 mg tablet Take 8 mg by mouth at bedtime. Active buPROPion XL (Wellbutrin XL) 150 mg 24 hr tabletIndication s:Bipolar affective disorder, currently depressed, mild (CMS/HCC),Anxiet y and depression Take 1 tablet (150 mg) by mouth in the morning. Do not crush, chew, or split. Do not start before April 30, 2022. 30 tablet 2 Active lamoTRIgine (LaMICtal) 150 mg tabletIndication s:Bipolar affective disorder, currently depressed, mild (CMS/HCC),Anxiet y and depression Take 1 tablet (150 mg) by mouth in the morning. Do not start before April 30, 2022. 30 tablet 2 Active losartan (Cozaar) 25 mg tabletIndication s:HFrEF (heart failure with reduced ejection fraction) (CMS/HCC),Crespo ry artery disease involving [place] coronary artery of [place] heart without angina pectoris Take 1 tablet (25 mg) by mouth in the morning. Do not start before April 30, 2022. 30 tablet 2 Active pantoprazole (ProtoNix) 40 mg EC tabletIndication s:Gastroesophage al reflux disease without esophagitis Take 1 tablet (40 mg) by mouth before breakfast. Do not crush, chew, or split. Do not start before April 30, 2022. 30 tablet 2 Active clonazePAM (KlonoPIN) 0.5 mg tabletIndication s:Bipolar affective disorder, currently depressed, mild (CMS/HCC),Anxiet y and depression Take 1 tablet (0.5 mg) by mouth in the morning, at noon, and at bedtime for 2 days. 6 tablet 2 Active baclofen (Lioresal) 10 mg tablet Take 10 mg by mouth in the morning, at noon, and at bedtime. Active dapagliflozin (Farxiga) 10 mgIndications:Ch ronic systolic heart failure (CMS/HCC) Take 1 tablet (10 mg) by mouth in the morning. 30 tablet 11 2 Active furosemide (Lasix) 20 mg tabletIndication s:Chronic systolic heart failure (CMS/HCC) Take 1 tablet (20 mg) by mouth in the morning. 30 tablet 11 2 Active Additional Information Patient taking differently: 60 mgoral Daily, Reported on 10/31/2023 escitalopram (Lexapro) 10 mg tablet Take 10 mg by mouth. 3 Active apixaban (Eliquis) 5 mg tabletIndication s:Paroxysmal atrial fibrillation (CMS/HCC) Take 1 tablet (5 mg) by mouth in the morning and at bedtime. 180 tablet 3 3 Active HYDROcodone-acet aminophen (Alpine) 7.5-325 mg tablet 3 Active donepezil (Aricept) 10 mg tablet 3 Active fentaNYL (Duragesic) 50 mcg/hr 1 patch to skin Transdermal q 72 hours for 30 days 3 Active venlafaxine XR (Effexor-XR) 150 mg 24 hr capsule Take 150 mg by mouth in the morning. 4 Active Active Problems Problem Noted Date Diagnosed Date Chronic venous stasis dermatitis of both lower e xtremities 05/21/2024 Leukocytosis 05/21/2024 HFrEF (heart failure with reduced ejection fract ion) 04/27/2022 Cellulitis of right lower extremity 04/24/2022 Closed fracture of pelvis with nonunion 04/24/20 NSTEMI (non-ST elevated myocardial infarction) 1 06/24/2021 Acute encephalopathy 04/23/2022 Coronary artery disease invo lving [place] coronary artery of [place] heart without angina pectoris 04/23/2022 Sinus node dysfunction 04/23/2022 Iron deficiency anemia 04/23/2022 Anxiety and depression 04/23/2022 Bipolar affective disorder, currently depressed, mild 04/23/2022 Gastroesophageal reflux disease without esophagi tis 04/23/2022 Acute blood loss anemia 04/23/2022 Elevated troponin 04/23/2022 Elevated d-dimer 04/23/2022 Hypomagnesemia 04/23/2022 Atrial fibrillation 04/23/2022 Hematoma of right lower extremity 04/23/2022 Prolonged QT interval 04/23/2022 Recurrent falls 04/23/2022 Stage 2 chronic kidney disease 10/26/2021 Mixed hyperlipidemia 10/26/2021 Chronic anemia 10/26/2021 Acute kidney failure, unspecified 08/12/2020 Difficulty in walking, not elsewhere classified 08/12/2020 Muscle weakness (generalized) 08/12/2020 Other symbolic dysfunctions 08/12/2020 Unspecified protein-calorie malnutrition 021 Age-related osteoporosis wit hout current pathological fracture 06/08/2020 Chronic venous hypertension (idiopathic) with ulcer and inflammation of bilateral lower extremity 06/08/2020 Fracture of unspecified part s of lumbosacral spine and pelvis, subsequent encounter for fracture with routine healing 06/08/2020 Morbid (severe) obesity due to excess calories 1 08/09/2019 Vitamin D deficiency, unspecified 06/08/2020 Chest pain 08/25/2014 Primary hypertension 11/18/2013 Sarcoidosis 11/18/2013 Bradycardia 11/18/2013 Sleep apnea 11/18/2013 Immunizations Immunization Administration Dates Next Due Covid (Pfizer) Bivalent Wolfgang ter =>12 YRS 03/11/2022 DTP 04/20/2021 Influenza, High Dose Seasona l, Preservative Free 03/18/2019,02/17/2018,03/12/2017,02/23 Influenza, High-dose Seasona l, Quadrivalent, Preservative Free 03/11/2022 Influenza, Seasonal, Quadriv alent, Adjuvanted 03/29/2021 Influenza, Unspecified 03/03/2020 Influenza, injectable, quadrivalent 03/12/2018 Pfizer SARS-CoV-2 Vaccination 09/10/2021 ,03/15/2021,07/13/2020,06/19 Pneumococcal Conjugate PCV 13 04/26/2017 Pneumococcal Polysaccharide PPV23 05/03/2019,06/2016 Zoster, Recombinant 01/05/2021,11/04/2020 Zoster, live 04/21/2015,03/25/2013 Social History Tobacco Use Types Packs/Day Years Used Date Smoking Tobacco: Former Cigarettes Smokeless Tobacco: Never Tobacco Cessation:Counseling Given: Not Answered Alcohol Use Standard Drinks/Week Comments Never 0 (1 standard drink = 0.6 oz pur e alcohol) [place] Safety & Environment Answer Date Rec orded Fear of Current or Ex-Partner Not on file Emotionally Abused Not on file 08/03/2023 Physically Abused Not on file 08/03/2023 Sexually Abused Not on file 08/03/2023 Physically or Sexually Abused Not on file Comments No Sex and Gender Information Value Date Recorded Sex Assigned at Female 04/25/2022 6:36 PM EST Legal Sex Female 10:57 PM EDT Gender Identity Female 04/25/2022 6:36 PM EST Sexual Orientation Choose not to disclose 2021 6:36 PM EST Last Filed Vital Signs Vital Sign Reading Time Taken Comments Blood Pressure 108/68 05/21/2024 11:26 AM EST Pulse 60 05/21/2024 11:26 AM EST Temperature 36.8 C (98.2 F) 04/29/2022 3:37 PM EST Respiratory Rate 14 04/29/2022 3:37 PM EST Oxygen Saturation 92% 05/21/2024 11:26 AM EST Inhaled Oxygen Concentration - - Weight 132 kg (291 lb) 10/31/2023 2:32 PM EDT Height 165.1 cm (5' 5 ) 05/21/2024 11:26 AM EST Body Mass Index 48.42 10/31/2023 2:32 PM EDT Plan of Treatment Upcoming Encounters Date Type Department Care Team (Late st Contact Info) Description 12/31/2024 10:15 AM EDT Ancillary Procedure [facility] [address] [place] [phone] 12/31/2024 10:45 AM EDT Office Visit [facility] [address] [place] [phone] Enoch Lange MD [address] [place] [phone] Procedures Procedure Name Priority Date/Time Associated Diagnosis Comments CARDIAC DEVICE CHECK CHECK - REMOTE Routine 10/21/2024 10:24 AM EDT Adjustment and management of cardiac pacemaker CARDIAC DEVICE CHECK CHECK - REMOTE Routine 10/04/2024 12:03 PM EDT Adjustment and management of cardiac pacemaker from Last 3 Months Results * CARDIAC DEVICE CHECK - REMOTE - PACEMAKER (10/21/2024 10:24 AM EDT) Only the most recent of2 resultswithin the time period is included. us Enoch Lange MD CV IMPLANTABLE CARDIAC DEVICE DE OCEDURES Final Result CPACS from Last 3 Months Insurance MEDICARE [employer] [place] Advance Directives * Full Code (Latest Code Status on File) Date Activated Date Inactivated Comments 04/23/2022 9:18 PM 04/29/2022 11:01 PM Care Teams Internal Control Manager Relationship Specialty Start Date End Date Benjamín Navarrete MD [address] [place] [address] PCP - General 05/23/22
== END 2024-12-10 09:39 | disposition home or self-care (01) ==
LOC: WC 09:38
PROVIDERS: PCP Family Medicine; Visit Provider Physician Assistant
DX: I87.313 Chronic venous hypertension (idiopathic) with ulcer of bilateral lower extremity (principal); L97.822 Non-pressure chronic ulcer of other part of left lower leg with fat layer exposed; L97.812 Non-pressure chronic ulcer of other part of right lower leg with fat layer exposed
CPT/HCPCS: A6021; A6213; G0463

== ENCOUNTER 2025-01-06 04:32 | Inpatient (IN) | payer MEDICARE, OTHER, MEDICAID, SELFPAY ==
[2025-01-06] VITALS (33 sets, daily range): BP systolic 101–145; BP diastolic 65–88; PULSE 56–76; TEMP 36.5–36.6; O2SAT 88–94; BMI 39.5; BMI 39.9
--- OUTSIDE RECORDS SUMMARY | 2025-01-06 04:40 | XMS_ITS | CCD ---
Author Organization [facility] Care Team Providers Care Operations Welder Name Role Phone ROBERTA VELA Admitting Unavailable RADHA ARROYOIR Referring Unavailable BILLY LOZADA Attending Unavailable AVE MEHTA Primary Care Unavailable Gunnar Fernandez Unavailable [place] Unavailable Emilie Perez Unavailable PROVIDER, UNKNOWN Admitting Unavailable PROVIDER, UNKNOWN Attending Unavailable JANINE Carter, DR DORADO Primary Care Unavailable HOY ., DR DORADO Admitting Unavailable HOY ., DR DORADO Consulting Unavailable HOY ., DR DORADO Attending Unavailable MARKER ., DR CURTIS Consulting Unavailable LEÓN DIAS Consulting Unavailable AUDRA LAGOS Consulting Unavailable CARITO BULLOCK Consulting Unavailable MARE JAIMES Consulting Unavailable LARISSA PETER D Admitting Unavailable LARISSA PETER Mallory Attending Unavailable JANINE ., DR DORADO Primary Care Unavailable JANINE ., DR DORADO Primary Care Unavailable SHERIE OLMOS Attending Unavailable SHERIE OLMOS Admitting Unavailable JANINE ., DR DORADO Primary Care Unavailable REBECCA, DR MARINO Braswell Consulting Unavailable JANINE ., DR DORADO Primary Care Unavailable MIRNA MARIE Attending Unavailable ISSA ., MIRNA Admitting Unavailable MIRNA MARIE Consulting Unavailable FAWN MARINELLI Consulting Unavaila suzanna DIAS PETER Mallory Admitting Unavailable PAOLOANDER, PETER D Attending Unavailable HOMilo ., DR DORADO Primary Care Unavailable PAOLOANDER, PETER D Admitting Unavailable PAOLOANDER, PETER D Attending Unavailable HOY ., DR DORADO Primary Care Unavailable LEÓN DIAS Attending Unavailable HOY ., DR DORADO Primary Care Unavailable PAOLOANDER PETER D Admitting Unavailable HIGHLANDER, PETER D [...] LEONIE Attending Unavailable LEONIDES, LEONIE Admitting Unavailable ZIEBER, DR MARINO Braswell Consulting Unavailable HOY ., DR DORADO Primary Care Unavailable PAY ., DR DING Consulting Unavailable LEONIDES, LEONIE Consulting Unavailable LEÓN LLAMAS Consulting Unavailable PAY ., DR DING Attending Unavailable PAY ., DR DING Consulting Unavailable HOY ., DR DORADO Primary Care Unavailable PAY ., DR DING Admitting Unavailable DUNN ., MR BETI Consulting Unavailable MADINA ACEVEDO Consulting Unavailable ITKIN NGUYEN Consulting Unavailable HIGHLANDER, PETER D Admitting Unavailable HIGHLANDER, PETER D Attending Unavailable HOY ., DR DORADO Primary Care Unavailable HOY ., DR DORADO Primary Care Unavailable TAMLYN .JAMES Attending Unavailable TAMLYN ., JAMES Admitting Unavailable [...] D Attending Unavailable AGUBOSIM, ISABEL Consulting Unavailable LONG, NEYDA Consulting Unavailable AYYAGARI ., SAMINA Consulting Unavailable ISSA ., MIRNA Attending Unavailable SEUN ., ALISON Consulting Unavailable JANINE ., DR DORADO Primary Care Unavailable ISSA ., MIRNA Admitting Unavailable DAVID STOKES Consulting Unavailable SHERRY CONDON Consulting Unavailable HOMilo ., DR DORADO Admitting Unavailable HOMilo ., DR DORADO Consulting Unavailable JANINE ., DR DORADO Attending Unavailable MARGO, DR BORIS Hardwick Procedure Practitioner Yun vailable JANINE ., DR DORADO Primary Care Unavailable BOLANOS ., DR IVAN Bowden Consulting Unavailable MARGO, DR BORIS Hardwick Consulting Unavailsandro JOSEPH, KIAN Consulting Unavailable RISHABH ART Consulting Unavailable LEÓN PETERS Unavailable JANINE ., DR DORADO Primary Care Unavailable HOY ., DR DORADO Admitting Unavailable VILLALOBOS, DR REYMUNDO Braswell Consulting Unavailable HOMilo ., DR DORADO Attending Unavailable JANINE ., DR DORADO Consulting Unavailable SHAIKH Roberto NICOLAS Consulting Unavailable LEÓN DIAS Consulting Unavailable LEÓN DIAS Attending Unavailable LEÓN DIAS Admitting Unavailable JANINE ., DR DORADO Primary Care Unavailable JANINE ., DR DORADO Primary Care Unavailable KRISTIAN MERAZ Attending Unavailable KRISTIAN MERAZ Admitting Unavailable MARKEL AMBROCIO Consulting Unavailable LEÓN DIAS Admitting Unavailable LEÓN DIAS Attending Unavailable JANINE ., DR DORADO Primary Care Unavailable RANDLEMAN, DR RISHABH Martin Consulting Unavailable LEÓN DIAS Consulting Unavailable Arthur OLIVER, Ирина Loya Attending Unavailable Arthur OLIVER, Andscar Loya Attending Unavailable Arthur OLIVER, Andrius Loya Attending Unavailable Arthur OLIVER, Ирина Loya Attending Unavailable Ave Mehta MD Primary Care Provider Beti Ham MD Attending Provider Beti Ham Attending Unavailable Beti Ham Admitting Unavailable Ave Mehta Primary Care Unavailable ENOCH FRANKEL Attending Unavailable ENOCH FRANKEL Referring Unavailable ENOCH FRANKEL Referring Unavailable ENOCH FRANKEL Attending Unavailable ENOCH FRANKEL Referring Unavailable ENOCH FRANKEL Referring Unavailable Allergies Allergy Classification Reported Allergen(s) Allergy Type Date of Onset Reaction(s) Facility (1 source) Cephalexin; Translations: [CEPHALEXIN] Drug Allergy 4 [facility] Repository (1 source) house dust allergenic extract; Translations: [HOUSE DUST] Drug Allergy 4 [facility] Repository (1 source) Pollen; Translations: [POLLEN EXTRACTS] Propensity to adverse reactions to drug (disorder) 4 [facility] Repository Medications Current Medications Medication Drug [...] States takes injection/infusion every 6 months at [facility], ordered by Dr. Mehta. aspirin 81 [...] Discontinued 0.5 MG PO Twice daily 6 3 June 08, 2020 12:26pm November 04, 2021 [...] 04, 2021 11:18am take 1 tablet by brnyn th every twenty-four hours amLODIPine Besylate 5 [...] PHYSIO COND] Onset: 08-18-2022 Episodic Cardiac dysrhythmias (2 sources) Paroxysmal atrial fibrillation; Translations: [Unspecified atrial [...] NEC INITIAL] Onset: 03-11-2022 Episodic Conduction disorders (20 sources) Cardiac pacemaker in situ; Translations: [Presence [...] region] Episodic Other aftercare (1 source) Other skilled nursing (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; Translations: [OTH INTERMEDIATE CURRENT DRUG THERAPY] Onset: 10-18-2022 Episodic Other [...] COUGH, UNSPECIFIED; Translations: [COUGH, UNSPECIFIED] Onset: 12-16-2021 Unclassified (2 sources) Other persistent atrial fibrillation; Translations: [Other persistent atrial fibrillation] Onset: 09-14-2022 Past or Other Problems Problem Classification Problem [...] Resolved: 2 Episodic Other aftercare (1 source) [facility] (current) use of antibiotics; Translations: [OFFICE MACHINES WIRER CURRENT USE ANTIBIOTICS] Onset: 2 Episodic Other aftercare (1 source) [facility] (current) use of aspirin; Translations: [OFFICE MACHINES WIRER CURRENT USE OF ASPIRIN] Onset: 2 Episodic Other aftercare (1 source) [facility] (current) use of insulin; Translations: [OFFICE MACHINES WIRER CURRENT USE OF INSULIN] Onset: 2 Episodic [...] Value Interpretation Reference Range Facility Office Visiton 12-31-2024 Follow-up visit [id number] Linda Nascimento 1950 F Date Provider Department Center 12/31/2024 ENOCH RAMIREZ Family History Problem Relation Age of Onset Lung cancer Mother Stroke Father Family Status - Relation Status Age at Mother Father Level of Service:55562 HI OFFICE/OUTPATIENT ESTABLISHED HIGH MDM 40 MIN Normal [facility] Orders Onlyon 12-31-2024 Orders Only [id number] Linda Nascimento 1950 F Date Provider Department Center 12/31/2024 ROXY MARTIN Family History Problem Relation Age of Onset Lung cancer Mother Stroke Father Family Status - Relation Status Age at Mother Father Normal [facility] KERRI Antinuclear Antibodieson 07-31-2024 Antinuclear Abs, IFA Positive Critically abnormal . [facility] Comment on above: Result Comment: Nega tive <1:80 Borderline 1:80 Positive >1:80 Speckled cytoplasmic fluorescence is present. The antibodies noted in this pattern may be associated with, but not restricted to, primary biliary cirrhosis (PBC), polymyositis and dermatomyositis (PM/DM), and/or systemic lupus erythematosus (SLE). Performed By: #### T 4F, CK, CRP, TSH3, ESR, CBC, CMP #### [facility] [address] [place] [address] [place] #### HBCAB, JUSTINA, HBSAG, ALDOLASE, HCV RX PCR, HBSAB, THYGLOB AB, CHROMATIN, C4, C3, CH50, RPR W RFX, TPO, KERRI #### [facility] , Homogeneous Pattern 1:160 High . [facility] Comment on above: Result Comment: ICAP nomenclature: [id number] Performed By: #### T 4F, CK, CRP, TSH3, ESR, CBC, CMP #### [address] #### HBCAB, JUSTINA, HBSAG, ALDOLASE, HCV RX PCR, HBSAB, THYGLOB AB, CHROMATIN, C4, C3, CH50, RPR W RFX, TPO, KERRI #### [facility] , Note 1 Comment Normal . [facility] Comment on above: Result Comment: Brigid ignacio Potential Disease Association Homogeneous Systemic Lupus Erythematosus, Drug Induced Systemic Lupus Erythematosus, Chronic Autoimmune hepatitis, Juvenile Idiopathic Arthritis Speckled Sjogren Syndrome, Systemic Lupus Erythematosus, Subacute Cutaneous Lupus, Lupus, Congenital Heart Block, Mixed Connective Tissue Disease, Scleroderma-diffuse, Scleroderma-Autoimmune Myositis Overlap Syndrome, Systemic Lupus Vbragvpaivlpc-Gaokcgbefru-Xxhzfsjqey Myositis Overlap Syndrome, Systemic Autoimmune Rheumatic Disease, [...] Cytopenias, Linear Scleroderma, Antiphospholipid Syndrome Performed at: - [facility] [address] [id number] Sales And Service Change Leader: Iain Siegel PhD, Phone: [phone] Performed By: #### T 4F, CK, CRP, TSH3, ESR, CBC, CMP #### [facility] [address] #### HBCAB, JUSTINA, HBSAG, ALDOLASE, HCV RX PCR, HBSAB, THYGLOB AB, CHROMATIN, C4, C3, CH50, RPR W RFX, TPO, KERRI #### [facility] , Alanine aminotransferase [En zymatic activity/volume] in Serum or PlasmaOrdered By: Beti Ham on 07-31-2024 ALT [Catalytic activity/Vol] Alanine aminotransferase [Enzymatic activity/volume] in Serum or Plasma 7-52 [facility] Albumin [Mass/volume] in Ser um or Plasma by Bromocresol green (BCG) dye binding methoOrdered By: Beti Ham on 07-31-2024 Albumin BCG dye [Mass/Vol] Albumin [Mass/volume] in Serum or Plasma by Bromocresol green (BCG) dye binding metho 3.5-5.7 [facility] Aldolaseon 07-31-2024 Aldolase 3.3 U/L Normal 3.3-10.3 [facility] Comment on above: Result Comment: Perf ormed at: [facility] [address] [id number] Sales And Service Change Leader: Iain Siegel PhD, Phone: [phone] PERFORMED BY: [place] [address] PATHOLOGIST MANAGER MONITORING SARAHI JUAREZ M.D. Performed By: #### T 4F, CK, CRP, TSH3, ESR, CBC, CMP #### [address] #### HBCAB, JUSTINA, HBSAG, ALDOLASE, HCV RX PCR, HBSAB, THYGLOB AB, CHROMATIN, C4, C3, CH50, RPR W RFX, TPO, KERRI #### [facility] , Alkaline phosphatase [Enzyma tic activity/volume] in Serum or PlasmaOrdered By: Beti Ham on 07-31-2024 ALP [Catalytic activity/Vol] Alkaline phosphatase [Enzymatic activity/volume] in Serum or Plasma 34-104 [facility] Angiotensin Converting Enzym libby 07-31-2024 Angiotensin converting enzyme [Catalytic activity/Vol] 53 U/L Normal 14-82 [facility] Comment on above: Result Comment: Perf ormed at: [facility] [address] [id number] Sales And Service Change Leader: Iain Siegel PhD, Phone: [phone] Performed By: #### T 4F, CK, CRP, TSH3, ESR, CBC, CMP #### [place] [address] [place] #### HBCAB, JUSTINA, HBSAG, ALDOLASE, HCV RX PCR, HBSAB, THYGLOB AB, CHROMATIN, C4, C3, CH50, RPR W RFX, TPO, KERRI #### [facility] , Antithyroglobulin Abon 07-31 Antithyroglobulin Ab <1.0 Normal 0.0-0.9 [facility] Comment on above: Result Comment: Thyr oglobulin Antibody measured by [employer] Methodology It should be noted that the presence of thyroglobulin antibodies may not be pathogenic nor diagnostic, especially at very low levels. The assay hand box coverer has found that four percent of individuals without evidence of thyroid disease or autoimmunity will have positive TgAb levels up to 4 IU/mL. Performed at: [facility] [place] [address] Sales And Service Change Leader: Iain Siegel PhD, Phone: [phone] Performed By: #### T 4F, CK, CRP, TSH3, ESR, CBC, CMP #### [place] [address] [place] #### HBCAB, JUSTINA, HBSAG, ALDOLASE, HCV RX PCR, HBSAB, THYGLOB AB, CHROMATIN, C4, C3, CH50, RPR W RFX, TPO, KERRI #### [facility] , Aspartate aminotransferase [ Enzymatic activity/volume] in Serum or PlasmaOrdered By: Beti Ham on 07-31-2024 AST [Catalytic activity/Vol] Aspartate aminotransferase [Enzymatic activity/volume] in Serum or Plasma 13-39 [facility] Basophils Auto (Bld) [#/Vol] Ordered By: Beti Ham on 07-31-2024 Basophils (Bld) [#/Vol] Automated basoph il count 0.0-0.2 [facility] Basophils/100 WBC Auto (Bld) Ordered By: Beti Ham on 07-31-2024 Basophils/100 WBC (Bld) Automated basophil % . [facility] Bilirubin.total [Mass/volume ] in Serum or PlasmaOrdered By: Beti Ham on 07-31-2024 Bilirubin [Mass/Vol] Bilirubin.total [Mass/volume] in Serum or Plasma 0.3-1.0 [facility] C reactive protein [Mass/vol ume] in Serum or PlasmaOrdered By: Beti Ham on 07-31-2024 CRP [Mass/Vol] C reactive protein [Mass/volume] in Serum or Plasma High 0.0-0.5 [facility] C-Reactive Proteinon 025 C-Reactive Protein 2.6 mg/dL High 0.0-0.5 [facility] Comment on above: Performed By: #### T 4F, CK, CRP, TSH3, ESR, CBC, CMP #### [address] #### HBCAB, JUSTINA, HBSAG, ALDOLASE, HCV RX PCR, HBSAB, THYGLOB AB, CHROMATIN, C4, C3, CH50, RPR W RFX, TPO, KERRI #### [facility] , Calcium [Mass/volume] in Ser um or PlasmaOrdered By: Beti Ham on 07-31-2024 Calcium [Mass/Vol] Calcium [Mass/volume] in Serum or Plasma 8.6-10.3 [facility] Carbon dioxide, total [Moles /volume] in Serum or PlasmaOrdered By: Beti Ham on 07-31-2024 CO2 [Moles/Vol] Carbon dioxide, total [Moles/volume] in Serum or Plasma High 21.0-31.0 [facility] Chloride [Moles/volume] in S anne or PlasmaOrdered By: Beti Ham on 07-31-2024 Chloride [Moles/Vol] Chloride [Moles/volume] in Serum or Plasma 98-107 [facility] Chromatin Antibodyon 025 Chromatin Antibody <0.2 Normal 0.0-0.9 [facility] Comment on above: Performed By: #### T 4F, CK, CRP, TSH3, ESR, CBC, CMP #### [facility] [address] [place] [address] [place] #### HBCAB, JUSTINA, HBSAG, ALDOLASE, HCV RX PCR, HBSAB, THYGLOB AB, CHROMATIN, C4, C3, CH50, RPR W RFX, TPO, KERRI #### [facility] , Complement C3on 07-31-2024 Complement C3 189 mg/dL High 82-167 [facility] Comment on above: Result Comment: Perf ormed at: - [facility] [address] [id number] Sales And Service Change Leader: Iain Siegel PhD, Phone: [phone] Performed By: #### T 4F, CK, CRP, TSH3, ESR, CBC, CMP #### [address] #### HBCAB, JUSTINA, HBSAG, ALDOLASE, HCV RX PCR, HBSAB, THYGLOB AB, CHROMATIN, C4, C3, CH50, RPR W RFX, TPO, KERRI #### [facility] , Complement C4on 07-31-2024 Complement C4 36 mg/dL Normal 12-38 [facility] Comment on above: Performed By: #### T 4F, CK, CRP, TSH3, ESR, CBC, CMP #### [place] [address] [place] #### HBCAB, JUSTINA, HBSAG, ALDOLASE, HCV RX PCR, HBSAB, THYGLOB AB, CHROMATIN, C4, C3, CH50, RPR W RFX, TPO, KERRI #### [facility] , Complement Total (CH50)on Complement Total (CH50) >60 Normal >41 [facility] Comment on above: Result [...] out of range values. Performed at: - [facility] [id number] Sales And Service Change Leader: Iain Siegel PhD, Phone: [phone] PERFORMED BY: [place] [address] PATHOLOGIST MANAGER MONITORING SARAHI JUAREZ M.D. Performed By: #### T 4F, CK, CRP, TSH3, ESR, CBC, CMP #### [place] [address] [place] #### HBCAB, JUSTINA, HBSAG, ALDOLASE, HCV RX PCR, HBSAB, THYGLOB AB, CHROMATIN, C4, C3, CH50, RPR W RFX, TPO, KERRI #### [facility] , Complete Blood Count Auto Di ffon 07-31-2024 Basophils (Bld) [#/Vol] 0.1 10*3/uL Normal 0.0-0.2 [facility] Comment on above: Performed By: #### T 4F, CK, CRP, TSH3, ESR, CBC, CMP #### [place] [address] [place] #### HBCAB, JUSTINA, HBSAG, ALDOLASE, HCV RX PCR, HBSAB, THYGLOB AB, CHROMATIN, C4, C3, CH50, RPR W RFX, TPO, KERRI #### [facility] , Basophils/100 WBC (Bld) 0.9 % Normal . [facility] Comment on above: Performed By: #### T 4F, CK, CRP, TSH3, ESR, CBC, CMP #### [place] [address] [place] #### HBCAB, JUSTINA, HBSAG, ALDOLASE, HCV RX PCR, HBSAB, THYGLOB AB, CHROMATIN, C4, C3, CH50, RPR W RFX, TPO, KERRI #### [facility] , Eosinophils (Bld) [#/Vol] 0.3 10*3/uL Normal 0.0-0.45 [facility] Comment on above: Performed By: #### T 4F, CK, CRP, TSH3, ESR, CBC, CMP #### [place] [address] [place] #### HBCAB, JUSTINA, HBSAG, ALDOLASE, HCV RX PCR, HBSAB, THYGLOB AB, CHROMATIN, C4, C3, CH50, RPR W RFX, TPO, KERRI #### [facility] , Eosinophils/100 WBC (Bld) 4.4 % Normal . [facility] Comment on above: Performed By: #### T 4F, CK, CRP, TSH3, ESR, CBC, CMP #### [place] [address] [place] #### HBCAB, JUSTINA, HBSAG, ALDOLASE, HCV RX PCR, HBSAB, THYGLOB AB, CHROMATIN, C4, C3, CH50, RPR W RFX, TPO, KERRI #### [facility] , Erythrocyte distribution width (RBC) [Ratio] 15.0 % Normal 11.9-15.3 [facility] Comment on above: Performed By: #### T 4F, CK, CRP, TSH3, ESR, CBC, CMP #### [place] [address] [place] #### HBCAB, JUSTINA, HBSAG, ALDOLASE, HCV RX PCR, HBSAB, THYGLOB AB, CHROMATIN, C4, C3, CH50, RPR W RFX, TPO, KERRI #### [facility] , Hematocrit (Bld) [Volume fraction] 34.5 % Normal 34.0-46.4 [facility] Comment on above: Performed By: #### T 4F, CK, CRP, TSH3, ESR, CBC, CMP #### [place] [address] [place] #### HBCAB, JUSTINA, HBSAG, ALDOLASE, HCV RX PCR, HBSAB, THYGLOB AB, CHROMATIN, C4, C3, CH50, RPR W RFX, TPO, KERRI #### [facility] , Hemoglobin (Bld) [Mass/Vol] 12.0 g/dL Normal 11.8-15.4 [facility] Comment on above: Performed By: #### T 4F, CK, CRP, TSH3, ESR, CBC, CMP #### [address] #### HBCAB, JUSTINA, HBSAG, ALDOLASE, HCV RX PCR, HBSAB, THYGLOB AB, CHROMATIN, C4, C3, CH50, RPR W RFX, TPO, KERRI #### [facility] , Lymphocytes (Bld) [#/Vol] 1.1 10*3/uL Normal 1.00-4.8 [facility] Comment on above: Performed By: #### T 4F, CK, CRP, TSH3, ESR, CBC, CMP #### [address] #### HBCAB, JUSTINA, HBSAG, ALDOLASE, HCV RX PCR, HBSAB, THYGLOB AB, CHROMATIN, C4, C3, CH50, RPR W RFX, TPO, KERRI #### [facility] , Lymphocytes/100 WBC (Bld) 15.8 % Normal . [facility] Comment on above: Performed By: #### T 4F, CK, CRP, TSH3, ESR, CBC, CMP #### [address] #### HBCAB, JUSTINA, HBSAG, ALDOLASE, HCV RX PCR, HBSAB, THYGLOB AB, CHROMATIN, C4, C3, CH50, RPR W RFX, TPO, KERRI #### [facility] , MCH (RBC) [Entitic mass] 36.0 pg High 24.7-34.3 [facility] Comment on above: Performed By: #### T 4F, CK, CRP, TSH3, ESR, CBC, CMP #### [address] #### HBCAB, JUSTINA, HBSAG, ALDOLASE, HCV RX PCR, HBSAB, THYGLOB AB, CHROMATIN, C4, C3, CH50, RPR W RFX, TPO, KERRI #### [facility] , MCV (RBC) [Entitic vol] 103.7 fL High 80-100 [facility] Comment on above: Performed By: #### T 4F, CK, CRP, TSH3, ESR, CBC, CMP #### [address] #### HBCAB, JUSTINA, HBSAG, ALDOLASE, HCV RX PCR, HBSAB, THYGLOB AB, CHROMATIN, C4, C3, CH50, RPR W RFX, TPO, KERRI #### [facility] , Mean Corpuscular HGB Conc 34.7 g/dL Normal 32.0-35.0 [facility] Comment on above: Performed By: #### T 4F, CK, CRP, TSH3, ESR, CBC, CMP #### [address] #### HBCAB, JUSTINA, HBSAG, ALDOLASE, HCV RX PCR, HBSAB, THYGLOB AB, CHROMATIN, C4, C3, CH50, RPR W RFX, TPO, KERRI #### [facility] , Monocytes (Bld) [#/Vol] 0.5 10*3/uL Normal 0.0-0.8 [facility] Comment on above: Performed By: #### T 4F, CK, CRP, TSH3, ESR, CBC, CMP #### [place] [address] [place] #### HBCAB, JUSTINA, HBSAG, ALDOLASE, HCV RX PCR, HBSAB, THYGLOB AB, CHROMATIN, C4, C3, CH50, RPR W RFX, TPO, KERRI #### [facility] , Monocytes/100 WBC (Bld) 7.0 % Normal . [facility] Comment on above: Performed By: #### T 4F, CK, CRP, TSH3, ESR, CBC, CMP #### [place] [address] [place] #### HBCAB, JUSTINA, HBSAG, ALDOLASE, HCV RX PCR, HBSAB, THYGLOB AB, CHROMATIN, C4, C3, CH50, RPR W RFX, TPO, KERRI #### [facility] , Neutrophils (Bld) [#/Vol] 5.2 10*3/uL Normal 1.8-7.7 [facility] Comment on above: Performed By: #### T 4F, CK, CRP, TSH3, ESR, CBC, CMP #### [facility] [address] [place] [address] [place] #### HBCAB, JUSTINA, HBSAG, ALDOLASE, HCV RX PCR, HBSAB, THYGLOB AB, CHROMATIN, C4, C3, CH50, RPR W RFX, TPO, KERRI #### [facility] , Neutrophils/100 WBC (Bld) 71.9 % Normal . [facility] Comment on above: Performed By: #### T 4F, CK, CRP, TSH3, ESR, CBC, CMP #### [place] [address] [place] #### HBCAB, JUSTINA, HBSAG, ALDOLASE, HCV RX PCR, HBSAB, THYGLOB AB, CHROMATIN, C4, C3, CH50, RPR W RFX, TPO, KERRI #### [facility] , NRBC% 0.1 /100{WBC} Normal 0-0.5 [facility] Comment on above: Performed By: #### T 4F, CK, CRP, TSH3, ESR, CBC, CMP #### [place] [address] [place] #### HBCAB, JUSTINA, HBSAG, ALDOLASE, HCV RX PCR, HBSAB, THYGLOB AB, CHROMATIN, C4, C3, CH50, RPR W RFX, TPO, KERRI #### [facility] , Platelet mean volume (Bld) [Entitic vol] 7.9 fL Normal 6.3-10.7 [facility] Comment on above: Performed By: #### T 4F, CK, CRP, TSH3, ESR, CBC, CMP #### [place] [address] [place] #### HBCAB, JUSTINA, HBSAG, ALDOLASE, HCV RX PCR, HBSAB, THYGLOB AB, CHROMATIN, C4, C3, CH50, RPR W RFX, TPO, KERRI #### [facility] , Platelets (Bld) [#/Vol] 204 10*3/uL Normal 150-450 [facility] Comment on above: Performed By: #### T 4F, CK, CRP, TSH3, ESR, CBC, CMP #### [address] #### HBCAB, JUSTINA, HBSAG, ALDOLASE, HCV RX PCR, HBSAB, THYGLOB AB, CHROMATIN, C4, C3, CH50, RPR W RFX, TPO, KERRI #### [facility] , RBC (Bld) [#/Vol] 3.32 10*6/uL Low 3.60-5.00 [facility] Comment on above: Performed By: #### T 4F, CK, CRP, TSH3, ESR, CBC, CMP #### [address] #### HBCAB, JUSTINA, HBSAG, ALDOLASE, HCV RX PCR, HBSAB, THYGLOB AB, CHROMATIN, C4, C3, CH50, RPR W RFX, TPO, KERRI #### [facility] , WBC (Bld) [#/Vol] 7.2 10*3/uL Normal 3.8-11.6 [facility] Comment on above: Performed By: #### T 4F, CK, CRP, TSH3, ESR, CBC, CMP #### [place] [address] [place] #### HBCAB, JUSTINA, HBSAG, ALDOLASE, HCV RX PCR, HBSAB, THYGLOB AB, CHROMATIN, C4, C3, CH50, RPR W RFX, TPO, KERRI #### [facility] , Comprehensive Metabolic Pane mahendra 07-31-2024 Albumin [Mass/Vol] 3.7 g/dL Normal 3.5-5.7 [facility] Comment on above: Performed By: #### T 4F, CK, CRP, TSH3, ESR, CBC, CMP #### [place] [address] [place] #### HBCAB, JUSTINA, HBSAG, ALDOLASE, HCV RX PCR, HBSAB, THYGLOB AB, CHROMATIN, C4, C3, CH50, RPR W RFX, TPO, KERRI #### [facility] , Albumin/Globulin [Mass ratio] 1.4 {ratio} Normal [facility] Comment on above: Performed By: #### T 4F, CK, CRP, TSH3, ESR, CBC, CMP #### [place] [address] [place] #### HBCAB, JUSTINA, HBSAG, ALDOLASE, HCV RX PCR, HBSAB, THYGLOB AB, CHROMATIN, C4, C3, CH50, RPR W RFX, TPO, KERRI #### [facility] , ALP [Catalytic activity/Vol] 94 U/L Normal 34-104 [facility] Comment on above: Performed By: #### T 4F, CK, CRP, TSH3, ESR, CBC, CMP #### [place] [address] [place] #### HBCAB, JUSTINA, HBSAG, ALDOLASE, HCV RX PCR, HBSAB, THYGLOB AB, CHROMATIN, C4, C3, CH50, RPR W RFX, TPO, KERRI #### [facility] , ALT [Catalytic activity/Vol] 10 U/L Normal 7-52 [facility] Comment on above: Performed By: #### T 4F, CK, CRP, TSH3, ESR, CBC, CMP #### [place] [address] [place] #### HBCAB, JUSTINA, HBSAG, ALDOLASE, HCV RX PCR, HBSAB, THYGLOB AB, CHROMATIN, C4, C3, CH50, RPR W RFX, TPO, KERRI #### [facility] , Anion gap [Moles/Vol] 9.2 mmol/L Normal 6.0-15.0 [facility] Comment on above: Performed By: #### T 4F, CK, CRP, TSH3, ESR, CBC, CMP #### [address] #### HBCAB, JUSTINA, HBSAG, ALDOLASE, HCV RX PCR, HBSAB, THYGLOB AB, CHROMATIN, C4, C3, CH50, RPR W RFX, TPO, KERRI #### [facility] , AST [Catalytic activity/Vol] 14 U/L Normal 13-39 [facility] Comment on above: Performed By: #### T 4F, CK, CRP, TSH3, ESR, CBC, CMP #### [address] #### HBCAB, JUSTINA, HBSAG, ALDOLASE, HCV RX PCR, HBSAB, THYGLOB AB, CHROMATIN, C4, C3, CH50, RPR W RFX, TPO, KERRI #### [facility] , Bilirubin [Mass/Vol] 0.5 mg/dL Normal 0.3-1.0 [facility] Comment on above: Performed By: #### T 4F, CK, CRP, TSH3, ESR, CBC, CMP #### [place] [address] [place] #### HBCAB, JUSTINA, HBSAG, ALDOLASE, HCV RX PCR, HBSAB, THYGLOB AB, CHROMATIN, C4, C3, CH50, RPR W RFX, TPO, KERRI #### [facility] , Calcium [Mass/Vol] 9.2 mg/dL Normal 8.6-10.3 [facility] Comment on above: Performed By: #### T 4F, CK, CRP, TSH3, ESR, CBC, CMP #### [place] [address] [place] #### HBCAB, JUSTINA, HBSAG, ALDOLASE, HCV RX PCR, HBSAB, THYGLOB AB, CHROMATIN, C4, C3, CH50, RPR W RFX, TPO, KERRI #### [facility] , Chloride [Moles/Vol] 102 mmol/L Normal 98-107 [facility] Comment on above: Performed By: #### T 4F, CK, CRP, TSH3, ESR, CBC, CMP #### [place] [address] [place] #### HBCAB, JUSTINA, HBSAG, ALDOLASE, HCV RX PCR, HBSAB, THYGLOB AB, CHROMATIN, C4, C3, CH50, RPR W RFX, TPO, KERRI #### [facility] , CO2 [Moles/Vol] 34.1 mmol/L High 21.0-31.0 [facility] Comment on above: Performed By: #### T 4F, CK, CRP, TSH3, ESR, CBC, CMP #### [place] [address] [place] #### HBCAB, JUSTINA, HBSAG, ALDOLASE, HCV RX PCR, HBSAB, THYGLOB AB, CHROMATIN, C4, C3, CH50, RPR W RFX, TPO, KERRI #### [facility] , Creatinine [Mass/Vol] 1.42 mg/dL High 0.60-1.20 [facility] Comment on above: Performed By: #### T 4F, CK, CRP, TSH3, ESR, CBC, CMP #### [place] [address] [place] #### HBCAB, JUSTINA, HBSAG, ALDOLASE, HCV RX PCR, HBSAB, THYGLOB AB, CHROMATIN, C4, C3, CH50, RPR W RFX, TPO, KERRI #### [facility] , Estimated GFR 38.332 mL/Min Normal [facility] Comment on above: Performed By: #### T 4F, CK, CRP, TSH3, ESR, CBC, CMP #### [facility] [address] [place] [address] [place] #### HBCAB, JUSTINA, HBSAG, ALDOLASE, HCV RX PCR, HBSAB, THYGLOB AB, CHROMATIN, C4, C3, CH50, RPR W RFX, TPO, KERRI #### [facility] , Globulin (S) [Mass/Vol] 2.7 g/dL Normal [facility] Comment on above: Performed By: #### T 4F, CK, CRP, TSH3, ESR, CBC, CMP #### [address] #### HBCAB, JUSTINA, HBSAG, ALDOLASE, HCV RX PCR, HBSAB, THYGLOB AB, CHROMATIN, C4, C3, CH50, RPR W RFX, TPO, KERRI #### [facility] , Glucose [Mass/Vol] 95 mg/dL Normal 70-100 [facility] Comment on above: Result Comment: [facility] Glucose Reference Range is dependent on time and content of last meal. Glucose of more than 200 mg/dL in a nonstressed, ambulatory subject supports the diagnosis of Diabetes Mellitus. ADA recommended reference range Performed By: #### T 4F, CK, CRP, TSH3, ESR, CBC, CMP #### [place] [address] [place] #### HBCAB, JUSTINA, HBSAG, ALDOLASE, HCV RX PCR, HBSAB, THYGLOB AB, CHROMATIN, C4, C3, CH50, RPR W RFX, TPO, KERRI #### [facility] , Potassium [Moles/Vol] 4.3 mmol/L Normal 3.5-5.1 [facility] Comment on above: Performed By: #### T 4F, CK, CRP, TSH3, ESR, CBC, CMP #### [place] [address] [place] #### HBCAB, JUSTINA, HBSAG, ALDOLASE, HCV RX PCR, HBSAB, THYGLOB AB, CHROMATIN, C4, C3, CH50, RPR W RFX, TPO, KERRI #### [facility] , Protein [Mass/Vol] 6.4 g/dL Normal 6.4-8.9 [facility] Comment on above: Performed By: #### T 4F, CK, CRP, TSH3, ESR, CBC, CMP #### [address] [place] [address] [place] #### HBCAB, JUSTINA, HBSAG, ALDOLASE, HCV RX PCR, HBSAB, THYGLOB AB, CHROMATIN, C4, C3, CH50, RPR W RFX, TPO, KERRI #### [facility] , Sodium [Moles/Vol] 141 mmol/L Normal 136-145 [facility] Comment on above: Performed By: #### T 4F, CK, CRP, TSH3, ESR, CBC, CMP #### [place] [address] [place] #### HBCAB, JUSTINA, HBSAG, ALDOLASE, HCV RX PCR, HBSAB, THYGLOB AB, CHROMATIN, C4, C3, CH50, RPR W RFX, TPO, KERRI #### [facility] , Urea nitrogen [Mass/Vol] 22 mg/dL Normal 7-25 [facility] Comment on above: Performed By: #### T 4F, CK, CRP, TSH3, ESR, CBC, CMP #### [address] #### HBCAB, JUSTINA, HBSAG, ALDOLASE, HCV RX PCR, HBSAB, THYGLOB AB, CHROMATIN, C4, C3, CH50, RPR W RFX, TPO, KERRI #### [facility] , Creatine Kinaseon 07-31-2024 CK [Catalytic activity/Vol] 23 U/L Low 30-223 [facility] Comment on above: Result Comment: PERF ORMED BY: [place] [address] PATHOLOGIST MANAGER MONITORING SARAHI JUAREZ M.D. Performed By: #### T 4F, CK, CRP, TSH3, ESR, CBC, CMP #### [place] [address] [place] #### HBCAB, JUSTINA, HBSAG, ALDOLASE, HCV RX PCR, HBSAB, THYGLOB AB, CHROMATIN, C4, C3, CH50, RPR W RFX, TPO, KERRI #### [facility] , Creatine kinase [Enzymatic a ctivity/volume] in Serum or PlasmaOrdered By: Beti Ham on 07-31-2024 CK [Catalytic activity/Vol] Creatine kinase [Enzymatic activity/volume] in Serum or Plasma Low 30-223 [facility] Creatinine [Mass/volume] in Serum or PlasmaOrdered By: Beti Ham on 07-31-2024 Creatinine [Mass/Vol] Creatinine [Mass/volume] in Serum or Plasma High 0.60-1.20 [facility] Eosinophils Auto (Bld) [#/Vo l]Ordered By: Beti Ham on 07-31-2024 Eosinophils (Bld) [#/Vol] Automated eosinophil count 0.0-0.45 [facility] Eosinophils/100 WBC Auto (Bl d)Ordered By: Beti Ham on 07-31-2024 Eosinophils/100 WBC (Bld) Automated eosinophil % . [facility] Erythrocyte Sedimentation Ra chapincito 07-31-2024 ESR (Bld) [Velocity] 58 mm/h High 0-29 [facility] Comment on above: Result Comment: PERF ORMED BY: [place] [address] PATHOLOGIST MANAGER MONITORING SARAHI JUAREZ M.D. Performed By: #### T 4F, CK, CRP, TSH3, ESR, CBC, CMP #### [address] #### HBCAB, JUSTINA, HBSAG, ALDOLASE, HCV RX PCR, HBSAB, THYGLOB AB, CHROMATIN, C4, C3, CH50, RPR W RFX, TPO, KERRI #### [facility] , Erythrocyte distribution wid th Auto (RBC) [Ratio]Ordered By: Beti Ham on 07-31-2024 Erythrocyte distribution width (RBC) [Ratio] Erythrocyte distribution width [Ratio] by Automated count 11.9-15.3 [facility] Erythrocyte sedimentation ra te by Photometric methodOrdered By: Beti Ham on 07-31-2024 ESR Photometric method (Bld) [Velocity] Erythrocyte sedimentation rate by Photometric method High 0-29 [facility] Free T4 (Free Thyroxine)on 0 2-19-2025 Free T4 [Mass/Vol] 0.80 ng/dL Normal 0.61-1.12 [facility] Comment on above: Performed By: #### T 4F, CK, CRP, TSH3, ESR, CBC, CMP #### [facility] [address] [place] [address] [place] #### HBCAB, JUSTINA, HBSAG, ALDOLASE, HCV RX PCR, HBSAB, THYGLOB AB, CHROMATIN, C4, C3, CH50, RPR W RFX, TPO, KERRI #### [facility] , Globulin Calc (S) [Mass/Vol] Ordered By: Beti Ham on 07-31-2024 Globulin (S) [Mass/Vol] Serum globulin measurement by calculation (mass/volume) [facility] Glucose [Mass/volume] in Ser um or PlasmaOrdered By: Beti Ham on 07-31-2024 Glucose [Mass/Vol] Glucose [Mass/volume] in Serum or Plasma 70-100 [facility] Comment on above: ADA recommended refe rence rangeRandom Glucose Reference Range is dependent on time and content of last meal. Glucose of more than 200 mg/dL in a nonstressed, ambulatory subject supports the diagnosis of Diabetes Mellitus. Hematocrit Auto (Bld) [Volum e fraction]Ordered By: Beti Ham on 07-31-2024 Hematocrit (Bld) [Volume fraction] Hematocrit [Volume Fraction] of Blood by Automated count 34.0-46.4 [facility] Hemoglobin [Mass/volume] in BloodOrdered By: Beti Ham on 07-31-2024 Hemoglobin (Bld) [Mass/Vol] Hemoglobin [Mass/volume] in Blood 11.8-15.4 [facility] Hep C Ab wRfx to Qnt PCRon 0 07-31-2024 Hepatitis C Virus Antibody Non-Reactive Normal Non Reactive [facility] Comment on above: Performed By: #### T 4F, CK, CRP, TSH3, ESR, CBC, CMP #### [facility] [address] [place] [address] [place] #### HBCAB, JUSTINA, HBSAG, ALDOLASE, HCV RX PCR, HBSAB, THYGLOB AB, CHROMATIN, C4, C3, CH50, RPR W RFX, TPO, KERRI #### [facility] , Interpretation Hepatitis C Comment Normal . [facility] Comment on above: Result Comment: Not infected with HCV unless early or acute infection is suspected (which may be delayed in an immunocompromised individual), or other evidence exists to indicate HCV infection. Performed By: #### T 4F, CK, CRP, TSH3, ESR, CBC, CMP #### [address] #### HBCAB, JUSTINA, HBSAG, ALDOLASE, HCV RX PCR, HBSAB, THYGLOB AB, CHROMATIN, C4, C3, CH50, RPR W RFX, TPO, KERRI #### [facility] , Hepatitis B Core Antibodyon 07-31-2024 Hepatitis B Core Antibody Negative Normal Negative [facility] Comment on above: Result Comment: Perf ormed at: - [facility] [address] [id number] Sales And Service Change Leader: Iain Siegel PhD, Phone: [phone] Performed By: #### T 4F, CK, CRP, TSH3, ESR, CBC, CMP #### [place] [address] [place] #### HBCAB, JUSTINA, HBSAG, ALDOLASE, HCV RX PCR, HBSAB, THYGLOB AB, CHROMATIN, C4, C3, CH50, RPR W RFX, TPO, KERRI #### [facility] , Hepatitis B Surface Antibody on 07-31-2024 Hepatitis B Surface Antibody Non-Reactive Normal . [facility] Comment on above: Result Comment: Non Reactive: Not immune to HBV infection. Equivocal: Unable to determine if anti-HBs is present at levels consistent with immunity. Reactive: Anti-HBs concentration detected at greater than 10 mIU/mL. Individual is considered to be immune to infection with HBV. Performed By: #### T 4F, CK, CRP, TSH3, ESR, CBC, CMP #### [place] [address] [place] #### HBCAB, JUSTINA, HBSAG, ALDOLASE, HCV RX PCR, HBSAB, THYGLOB AB, CHROMATIN, C4, C3, CH50, RPR W RFX, TPO, KERRI #### [facility] , Hepatitis B Surface Antigeno n 07-31-2024 HBsAg Screen Negative Normal Negative [facility] Comment on above: Result Comment: PERF ORMED BY: [place] [address] PATHOLOGIST MANAGER MONITORING SARAHI JUAREZ M.D. Performed By: #### T 4F, CK, CRP, TSH3, ESR, CBC, CMP #### [address] #### HBCAB, JUSTINA, HBSAG, ALDOLASE, HCV RX PCR, HBSAB, THYGLOB AB, CHROMATIN, C4, C3, CH50, RPR W RFX, TPO, KERRI #### [facility] , Leukocytes [#/volume] correc umang for nucleated erythrocytes in Blood by Automated counOrdered By: Beti Ham on 07-31-2024 WBC corrected for nucl RBC Auto (Bld) [#/Vol] Leukocytes [#/volume] corrected for nucleated erythrocytes in Blood by Automated coun 3.8-11.6 [facility] Lymphocytes Auto (Bld) [#/Vo l]Ordered By: Beti Ham on 07-31-2024 Lymphocytes (Bld) [#/Vol] Lymphocytes [#/volume] in Blood by Automated count 1.00-4.8 [facility] Lymphocytes/100 WBC Auto (Bl d)Ordered By: Beti Ham on 07-31-2024 Lymphocytes/100 WBC (Bld) Lymphocytes/100 leukocytes in Blood by Automated count . [facility] MCH Auto (RBC) [Entitic mass ]Ordered By: Beti Ham on 07-31-2024 MCH (RBC) [Entitic mass] MCH [Entitic mass] by Automated count High 24.7-34.3 [facility] MCHC Auto (RBC) [Mass/Vol]Or dered By: Beti Ham on 07-31-2024 MCHC (RBC) [Mass/Vol] MCHC [Mass/volume] by Automated count 32.0-35.0 [facility] MCV Auto (RBC) [Entitic vol] Ordered By: Beti Ham on 07-31-2024 MCV (RBC) [Entitic vol] MCV [Entitic vol ume] by Automated count High 80-100 [facility] Monocytes Auto (Bld) [#/Vol] Ordered By: Beti Ham on 07-31-2024 Monocytes (Bld) [#/Vol] Automated blood monocyte count 0.0-0.8 [facility] Monocytes/100 WBC Auto (Bld) Ordered By: Beti Ham on 07-31-2024 Monocytes/100 WBC (Bld) Automated monocyte % . [facility] Neutrophils Auto (Bld) [#/Vo l]Ordered By: Beti Ham on 07-31-2024 Neutrophils (Bld) [#/Vol] Neutrophils [#/volume] in Blood by Automated count 1.8-7.7 [facility] Neutrophils/100 WBC Auto (Bl d)Ordered By: Beti Ham on 07-31-2024 Neutrophils/100 WBC (Bld) Automated neutrophil % . [facility] No Panel InformationOrdered By: Beti Ham on 07-31-2024 Estimated GFR (CKD-EPI) 38.332 mL/Min [facility] Creatinine Clearance (Chem N/A [facility] Nucleated erythrocytes [Pres ence] in Blood by Automated countOrdered By: Beti Ham on 07-31-2024 Nucleated RBC Auto Ql (Bld) Nucleated erythrocytes [Presence] in Blood by Automated count 0-0.5 [facility] Platelet mean volume Auto (B ld) [Entitic vol]Ordered By: Beti Ham on 07-31-2024 Platelet mean volume (Bld) [Entitic vol] Platelet mean volume [Entitic volume] in Blood by Automated count 6.3-10.7 [facility] Platelets Auto (Bld) [#/Vol] Ordered By: Beti Ham on 07-31-2024 Platelets (Bld) [#/Vol] Platelets [#/vol ume] in Blood by Automated count 150-450 [facility] Potassium [Moles/volume] in Serum or PlasmaOrdered By: Beti Ham on 07-31-2024 Potassium [Moles/Vol] Potassium [Moles/volume] in Serum or Plasma 3.5-5.1 [facility] Protein [Mass/volume] in Ser um or PlasmaOrdered By: Beti Ham on 07-31-2024 Protein [Mass/Vol] Protein [Mass/volume] in Serum or Plasma 6.4-8.9 [facility] RBC Auto (Bld) [#/Vol]Ordere d By: Beti Ham on 07-31-2024 RBC (Bld) [#/Vol] Erythrocytes [#/volume] in Blood by Automated count Low 3.60-5.00 [facility] RPR w/rfx to Quant TP Abson 07-31-2024 RPR, Rfx Quant RPR Non-Reactive Normal Non Reactive [facility] Comment on above: Result Comment: Perf ormed at: - [facility] [place] [id number] Sales And Service Change Leader: Iain Siegel PhD, Phone: [phone] PERFORMED BY: [place] [address] PATHOLOGIST MANAGER MONITORING SARAHI JUAREZ M.D. Performed By: #### T 4F, CK, CRP, TSH3, ESR, CBC, CMP #### [address] #### HBCAB, JUSTINA, HBSAG, ALDOLASE, HCV RX PCR, HBSAB, THYGLOB AB, CHROMATIN, C4, C3, CH50, RPR W RFX, TPO, KERRI #### [facility] , Serum or plasma albumin/glob ulin mass ratioOrdered By: Beti Ham on 07-31-2024 Albumin/Globulin [Mass ratio] Serum or plasma albumin/globulin mass ratio [facility] Serum or plasma anion gap de terminationOrdered By: Beti Ham on 07-31-2024 Anion gap [Moles/Vol] Serum or plasma anion gap determination 6.0-15.0 [facility] Sodium [Moles/volume] in Ser um or PlasmaOrdered By: Beti Ham on 07-31-2024 Sodium [Moles/Vol] Sodium [Moles/volume] in Serum or Plasma 136-145 [facility] Thyroid Peroxidase Antibodie son 07-31-2024 Thyroid Peroxidase Antibodies 12 [IU]/mL Normal 0-34 [facility] Comment on above: Result Comment: Perf ormed at: [facility] [address] [id number] Sales And Service Change Leader: Iain Siegel PhD, Phone: [phone] Performed By: #### T 4F, CK, CRP, TSH3, ESR, CBC, CMP #### [place] [address] [place] #### HBCAB, JUSTINA, HBSAG, ALDOLASE, HCV RX PCR, HBSAB, THYGLOB AB, CHROMATIN, C4, C3, CH50, RPR W RFX, TPO, KERRI #### [facility] , Thyroid Stimulating Hormoneo n 07-31-2024 TSH Qn 2.45 m[IU]/L Normal 0.45-5.33 [facility] Comment on above: Result Comment: PERF ORMED BY: [place] [address] PATHOLOGIST MANAGER MONITORING SARAHI JUAREZ M.D. Performed By: #### T 4F, CK, CRP, TSH3, ESR, CBC, CMP #### [place] [address] [place] #### HBCAB, JUSTINA, HBSAG, ALDOLASE, HCV RX PCR, HBSAB, THYGLOB AB, CHROMATIN, C4, C3, CH50, RPR W RFX, TPO, KERRI #### [facility] , Thyrotropin [Units/volume] i n Serum or PlasmaOrdered By: Beti Ham on 07-31-2024 TSH Qn Thyrotropin [Units/volume] in Serum or Plasma 0.45-5.33 [facility] Thyroxine (T4) free [Mass/vo lume] in Serum or PlasmaOrdered By: Beti Ham on 07-31-2024 Free T4 [Mass/Vol] Thyroxine (T4) free [Mass/volume] in Serum or Plasma 0.61-1.12 [facility] Urea nitrogen [Mass/volume] in Serum or PlasmaOrdered By: Beti Ham on 07-31-2024 Urea nitrogen [Mass/Vol] Urea nitrogen [Mass/volume] in Serum or Plasma 01-03 [facility] WBC Auto (Bld) [#/Vol]Ordere d By: Beti Ham on 07-31-2024 WBC (Bld) [#/Vol] Leukocytes [#/volume] in Blood by Automated count 3.8-11.6 [facility] Office Visiton 05-21-2024 Follow-up visit [id number] Linda Nascimento 1950 F Date Provider Department Center 05/21/2024 ENOCH RAMIREZ JU[facility] Family History Problem Relation Age of Onset Lung cancer Mother Stroke Father Family Status - Relation Status Age at Mother Father Level of Service:09352 HI OFFICE/OUTPATIENT ESTABLISHED LOW MDM 20 MIN Normal [facility] Herpes Simplex Virus By PCRo n 05-07-2024 HSV 1 Subtype by PCR Not detected Normal [facility] Comment on above: Order Comment: CALL doctor LB474 tel. [phone], FAX [phone] CALL doctor LB474 tel. [phone], FAX [phone] Result Comment: The specimen submitted for testing did not meet [facility] submission guidelines. Testing was performed on a specimen that did not meet validated specimen type requirements. Performance characteristics of this assay may be affected. Interpret results with caution. Please refer to the [facility] Test Directory for information on specimen acceptability: [email or web address].com/testing Performed By: #### A 0095 #### [facility] [address] [place] [address] HSV 2 Subtype by PCR Not detected Normal [facility] Comment on above: Order Comment: CALL doctor LB474 tel. [phone], FAX [phone] CALL doctor LB474 tel. [phone], FAX [phone] Result Comment: The specimen submitted for testing did not meet [facility] submission guidelines. Testing was performed on a specimen that did not meet validated specimen type requirements. Performance characteristics of this assay may be affected. Interpret results with caution. Please refer to the [facility] Test Directory for information on specimen acceptability: [email or web address]/testing INTERPRETIVE INFORMATION: HSV-1 and HSV-2 Subtype by PCR A negative result does not rule out the presence of PCR inhibitors in the patient specimen or test-specific nucleic acid in concentrations below the level of detection by this test. This test was developed and its performance characteristics determined by [facility]. It has not been cleared or approved by the [place] Food and Drug Administration. This test was performed in a CLIA certified laboratory and is intended for clinical purposes. Performed By: [facility] [address] [place] [address] Grinder Operator Tool: Rodrigo Milner MD, PhD [facility] Number: [id number] Performed By: #### A 0095 #### [facility] [address] [place] [address] Rejection Notificationon Reason see below [facility] Comment on above: Order Comment: CALL doctor LB474 tel. [phone], FAX [phone] CALL doctor LB474 tel. [phone], FAX [phone] Result Comment: Unab le to perform testing; specimen quantity not sufficient. To perform testing the specimen will need to be recollected. QNS Performed By: #### R EJEC #### [facility] [address] [place] [address] Rejected Test [id number] [facility] Comment on above: Order Comment: CALL doctor LB474 tel. [phone], FAX [phone] CALL doctor LB474 tel. [phone], FAX [phone] Performed By: #### R EJEC #### [facility] [address] [place] [address] [facility] Miscellaneous test 1on 05-03-2024 [facility] Prompt [id number] [facility] Comment on above: Order Comment: CALL doctor LB474 tel. [phone], FAX [phone] Performed By: #### 9 [id number] #### [facility] [address] [place] [address] Culture, Wound Aerobic, Anae robicon 05-03-2024 Culture, Wound Aerobic, Anaerobic ORDER#: [id number] ORDERED BY: MICHELLE QUINTERO SOURCE: Face Left eye ocular fluid COLLECTED: 05/03/24 07:26 ANTIBIOTICS AT [place].: RECEIVED : 05/03/24 07:39 CALL doctor LB474 tel. [phone], FAX [phone] Culture, Wound Aerobic, Anaerobic FINAL 05/08/24 08:22 Direct Exam: NO NEUTROPHILS SEEN Direct Exam: NO ORGANISMS SEEN Cult,Aerobe/Anaerobe : NO GROWTH 5 DAYS Performed at [address] [address] ([phone] Normal [facility] Comment on above: Performed By: #### I CWAN #### [facility] [address] [place] [address] Herpes Simplex Virus By PCRo n 05-03-2024 Herpes Simplex Virus Subtype Source eye Normal [facility] Comment on above: Order Comment: CALL doctor LB474 tel. [phone], FAX [phone] CALL doctor LB474 tel. [phone], FAX [phone] Result Comment: ocul ar fld Performed By: #### A 0095 #### [facility] [address] [place] [address] CBC AUTO DIFFon 10-14-2022 BASO # 0.1 103/ul Normal 0.0-0.1 [facility] Comment on above: Performed By: #### C BC #### [address] [place], [place] [address]Ma. Slick Broderick Basophils/100 WBC (Bld) 0.6 % Normal 0.2-2.0 [facility] Comment on above: Performed By: #### C BC #### [address] [place], [place] [address]AqEmma Broderick EO # 0.4 103/ul Normal 0.0-0.7 [facility] Comment on above: Performed By: #### C BC #### [address] [place] [id number]. Slick Broderick Eosinophils/100 WBC (Bld) 3.9 % Normal 0.9-7.0 [facility] Comment on above: Performed By: #### C BC #### [address] [place] [address]Dr. Slick Broderick Erythrocyte distribution width (RBC) [Ratio] 13.2 % Normal 11.0-15.0 [facility] Comment on above: Performed By: #### C BC #### [address] [place] [address]Dr. Slick Broderick Hematocrit (Bld) [Volume fraction] 32.4 % Critically low 36.0-48.0 [facility] Comment on above: Performed By: #### C BC #### [id number] [place], [place] [address]Dr. Slick Broderick Hemoglobin (Bld) [Mass/Vol] 10.4 g/dL Critically low 12.0-16.0 The Comment on above: Performed By: #### C BC #### [address] [place], [place] [address]Dr. Slick Broderick IG # 0.19 10e3/ul Critically high 0.00-0.03 [facility] Comment on above: Performed By: #### C BC #### [address] [place], [place] [address]Dr. Slick Broderick IG % 2.1 % Critically high 0.0-0.5 [facility] [place] [facility] Comment on above: Performed By: #### C BC #### [address] [place], [place] [address]DrEmma Slick Broderick LYMPH # 1.0 103/ul Critically low 1.2-3.8 [facility] Comment on above: Performed By: #### C BC #### [address] [place] [address]Dr. Slick Broderick Lymphocytes/100 WBC (Bld) 11.4 % Critically low 20.5-60.0 [facility] Comment on above: Performed By: #### C BC #### [address] [place] [address]DrEmma Broderick MANUAL DIFF REQ NO Normal [facility] Comment on above: Performed By: #### C BC #### [address] [place] [address]Dr. Slick Broderick MCH (RBC) [Entitic mass] 32.0 pg Normal 26.7-34.0 [facility] Comment on above: Performed By: #### C BC #### [address] [place], [place] [address]Dr. Slick Broderick MCHC (RBC) [Mass/Vol] 32.1 g/dL Normal 29.9-35.2 [facility] Comment on above: Performed By: #### C BC #### [id number] [place], [place] [address]DrEmma Broderick MCV (RBC) [Entitic vol] 99.7 fL Critically high 81.0-99 .0 [facility] Comment on above: Performed By: #### C BC #### [address] [place], [place] [address]DrEmma Broderick MONO # 1.0 103/ul Critically high 0.3-0.8 [facility] Comment on above: Performed By: #### C BC #### Npwciexveh[address] [place], [place] [address]DrEmma Broderick Monocytes/100 WBC (Bld) 10.8 % Normal 1.7-12.0 [facility] Comment on above: Performed By: #### C BC #### Cobsdstwlv[address] [place], [place] [address]DrEmma Broderick NEUT # 6.4 103/ul Normal 1.4-6.5 [facility] Comment on above: Performed By: #### C BC #### Kcarzegspe[address] [place], [place] [address]DrEmma Broderick Neutrophils/100 WBC (Bld) 71.2 % Normal 43.0-75.0 [facility] Comment on above: Performed By: #### C BC #### Khktwgqjds4819 [place] [address]Dr. Slick Broderick Platelet mean volume (Bld) [Entitic vol] 9.8 fL Normal 9.5-13.5 [facility] Comment on above: Performed By: #### C BC #### Ifxtlrkdvr5890 [place] [address]Dr. Slick Broderick PLT 174 103/ul Normal 150-450 The Comment on above: Performed By: #### C BC #### Noixwwfkup8625 [place] [address]Dr. Slick Broderick RBC 3.25 106/ul Critically low 4.20-5.40 [facility] Comment on above: Performed By: #### C BC #### Wqejxvhosh3150 [place] [address]Dr. Slick Broderick WBC 8.9 103/ul Normal 4.0-11.0 [facility] Comment on above: Performed By: #### C BC #### Kiojowzbtm[address] [place], [place] [address]Dr. Slick Broderick CRPon 10-14-2022 CRP 0.5 mg/dL Normal <=1.0 [facility] Comment on above: Performed By: #### C RP, BMP #### Tpxftrgeco400[address] [place], [place] [address]Dr. Slick Broderick D-DIMERon 10-14-2022 D-DIMER 0.86 mg/L FEU Critically high <=0.59 [facility] Comment on above: Performed By: #### D DIM #### Vqqnuqdlzt776[address] [place], [place] [address]Dr. Slick Broderick D-DIMER COMMENTS SEE BELOW Normal [facility] Comment on above: Result Comment: Incr [...] generalized hospitalization. Performed By: #### D DIM #### Pvdgzkeeaq519[address] [place], [place] [address]Dr. Slick Broderick PROF CHEM 8 (BAS METB)on Anion gap [Moles/Vol] 10.1 mmol/L Normal [facility] Comment on above: Performed By: #### C RP, BMP #### Temdmfagnx437[address] [place], [place] [address]Dr. Slick Broderick Calcium [Mass/Vol] 9.3 mg/dL Normal 8.5-10.1 [facility] Comment on above: Performed By: #### C RP, BMP #### Qyezixcroi504[address] [place], [place] [address]Dr. Slick Broderick Chloride [Moles/Vol] 98 mmol/L Normal 98-107 [facility] Comment on above: Performed By: #### C RP, BMP #### Odxhvastlu813[address] [place], [place] [address]Dr. Slick Broderick CO2 [Moles/Vol] 30.3 mmol/L Normal 21.0-32.0 [facility] Comment on above: Performed By: #### C RP, BMP #### Leknwugcni46[address] [place], [place] [address]Dr. Slick Broderick Creatinine [Mass/Vol] 2.15 mg/dL Critically high 0.55-1.02 [facility] Comment on above: Performed By: #### C RP, BMP #### Enyvmzqigr918[address] [place], [place] [address]Dr. Slick Broderick EGFR-AF TONGAN 27 mL/min/1.73m2 Critically low >=60 [facility] Comment on above: Performed By: #### C RP, BMP #### Bogwdfkxii415[address] [place], [place] [address]Dr. Slick Broderick EGFR-NON AF TONGAN 22 mL/min/1.73m2 Critically low >=60 The Comment on above: Performed By: #### C RP, BMP #### Vqdpdaznye0056 [place] [address]Dr. Slick Broderick Glucose [Mass/Vol] 116 mg/dL Critically high 74-[address] [facility] Comment on above: Performed By: #### C RP, BMP #### Lnyypkvpfl9714 [place] [address]Dr. Slick Broderick Potassium [Moles/Vol] 4.4 mmol/L Normal 3.5-5.1 [facility] Comment on above: Performed By: #### C RP, BMP #### Hznplwtszp99035[address] [place], [place] [address]Dr. Slick Broderick Sodium [Moles/Vol] 134 mmol/L Critically low 136-145 [facility] Comment on above: Performed By: #### C RP, BMP #### Isonbmtqik954[address] [place], [place] [address]Dr. Slick Broderick Urea nitrogen [Mass/Vol] 33.0 mg/dL Critically high 7.0-18.0 [facility] Comment on above: Performed By: #### C RP, BMP #### Fofibszpod4427[address] [place], [place] [address]Dr. Slick Broderick Urea nitrogen/Creatinine [Mass ratio] 15.3 mg/mg Normal [facility] Comment on above: Performed By: #### C RP, BMP #### Zelcisqrmm5733[address] [place], [place] [address]Dr. Slick Broderick US JENNY DOP LEG LTon 10-15-19 23 US JENNY DOP LEG LT Normal [facility] XR FEMUR LTon 10-14-2022 XR FEMUR LT Normal [facility] ECHOCARDIO M/2D COMPLETEon 0 09-14-2022 ECHOCARDIO M/2D COMPLETE Normal [facility] PRBC LEUKOREDUCEDon 06-09-20 22 PRBC LEUKOREDUCED Normal [facility] Comment on above: Performed By: #### P RBC #### Wnjmpijokm4507 [place] [address]Dr. Slick Broderick BNPon 04-23-2022 Natriuretic peptide B (Bld) [Mass/Vol] 48322.0 pg/mL Critically high <=900.0 [facility] Comment on above: Performed By: #### C MP, CMADM, BNP #### Crzeqdvjwi3325 [place] [address]Dr. Slick Broderick CARDIAC REYMUNDO ADMITon 022 CK [Catalytic activity/Vol] 121 U/L Normal 26-192 The Comment on above: Performed By: #### C MP, CMADM, BNP #### Rootvgblig8816 [place] [address]Dr. Slick Broderick CK.MB [Mass/Vol] 5.67 ng/mL Critically high <=3.60 [facility] Comment on above: Performed By: #### C MP, CMADM, BNP #### Abvwvszgcv3616[address] [place], [place] [address]Dr. Slick Davie HSTROP 3667.9 pg/mL Critically high 4.0-51.3 [facility] Comment on above: Result Comment: CUT- OFF POINTS HAVE BEEN ESTABLISHED BASED ON THE FOURTH UNIVERSAL DEFINITIONS OF MYOCARDIALINFARCTION. THE UPPER REFERENCE LIMIT (URL) OF TROPONIN, DEFINED THE 99TH PERCENTILE OFcTnI DISTRIBUTION IN A REFERENCE POPULATION, HAS BEEN CONFIRMED THE DECISION THRESHOLDFOR [place] DIAGNOSIS. Performed By: #### C MP, CMADM, BNP #### Rwypulmzvy80[address] [place], [place] [address]Dr. Slikc Broderick NEHEMIAH 225 ng/mL Critically high 9-82 [facility] Comment on above: Performed By: #### C MP, CMADM, BNP #### Mlihdrkyfp0757 [place] [address]Dr. Slick Broderick CBC AUTO DIFFon 04-23-2022 BASO # 0.0 103/ul Normal 0.0-0.1 [facility] Comment on above: Performed By: #### C BC #### Quyfzcgtff3846 [place] [address]Dr. Slick Broderick Basophils/100 WBC (Bld) 0.3 % Normal 0.2-2.0 [facility] Comment on above: Performed By: #### C BC #### Keznhcekqj89[address] [place], [place] [address]Dr. Slick Broderick EO # 0.0 103/ul Normal 0.0-0.7 [facility] Comment on above: Performed By: #### C BC #### Fziqvwqqzi775[address] [place], [place] [address]Dr. Slick Broderick Eosinophils/100 WBC (Bld) 0.3 % Critically low 0.9-7.0 [facility] Comment on above: Performed By: #### C BC #### Rxyvijiodp72[address] [place], [place] [address]Dr. Slick Davie Erythrocyte distribution width (RBC) [Ratio] 14.0 % Normal 11.0-15.0 [facility] Comment on above: Performed By: #### C BC #### Ucpwvanegf320[address] [place], [place] [address]Dr. Slick Broderick Hematocrit (Bld) [Volume fraction] 21.9 % Critically low 36.0-48.0 [facility] Comment on above: Performed By: #### C BC #### Spgbenvhyh606[address] [place], [place] [address]Dr. Slick Broderick Hemoglobin (Bld) [Mass/Vol] 7.1 g/dL Critically low 12.0-16.0 [facility] Comment on above: Performed By: #### C BC #### Pssjbdshvv864[address] [place], [place] [address]DrEmma Rhodeswendie Davie IG # 0.04 10e3/ul Critically high 0.00-0.03 [facility] Comment on above: Performed By: #### C BC #### Nivooovbdu3100[address] [place], [place] [address]DrEmma Rhodeswendie Davie IG % 0.4 % Normal 0.0-0.5 [facility] Comment on above: Performed By: #### C BC #### Avoehcfpxl939[address] [place], [place] [address]Dr. Slick Broderick LYMPH # 0.8 103/ul Critically low 1.2-3.8 [facility] Comment on above: Performed By: #### C BC #### Pqrhhbgdkp2057 [place] [address]Dr. Slick Broderick Lymphocytes/100 WBC (Bld) 7.7 % Critically low 20.5-60.0 [facility] Comment on above: Performed By: #### C BC #### Ywnnanllzl9570 [place] [address]Dr. Slick Broderick MANUAL DIFF REQ NO Normal [facility] Comment on above: Performed By: #### C BC #### Hrzhqrofsg1875 [place] [address]Dr. Slick Broderick MCH (RBC) [Entitic mass] 29.3 pg Normal 26.7-34.0 [facility] Comment on above: Performed By: #### C BC #### Bfyswefdqg0139[address] [place], [place] [address]Dr. Slick Broderick MCHC (RBC) [Mass/Vol] 32.4 g/dL Normal 29.9-35.2 [facility] Comment on above: Performed By: #### C BC #### Psprbrpsln260[address] [place], [place] [address]Dr. Slick Broderick MCV (RBC) [Entitic vol] 90.5 fL Normal 81.0-99.0 [facility] Comment on above: Performed By: #### C BC #### Ghhzluimam0368 [place] [address]Dr. Slick Broderick MONO # 1.0 103/ul Critically high 0.3-0.8 [facility] Comment on above: Performed By: #### C BC #### Xqdjndxyjx811354 [address] [place], [place] [address]Dr. Slick Broderick Monocytes/100 WBC (Bld) 9.6 % Normal 1.7-12.0 [facility] Comment on above: Performed By: #### C BC #### Kkjzzbkkgo3[address] [place], [place] [address]Dr. Slick Broderick NEUT # 8.6 103/ul Critically high 1.4-6.5 [facility] Comment on above: Performed By: #### C BC #### Yvazhawnso7783 [place] [address]Dr. Slick Broderick Neutrophils/100 WBC (Bld) 81.7 % Critically high 43.0-75.0 The Comment on above: Performed By: #### C BC #### Nwpfmxbnuk9509 [place] [address]Dr. Slick Broderick Platelet mean volume (Bld) [Entitic vol] 10.0 fL Normal 9.5-13.5 The Comment on above: Performed By: #### C BC #### Sutlnumcld5123 [place] [address]Dr. Slick Broderick PLT 195 103/ul Normal 150-450 The Comment on above: Performed By: #### C BC #### Efhavuxxoe156[address] [place], [place] [address]Dr. Slick Broderick RBC 2.42 106/ul Critically low 4.20-5.40 [facility] Comment on above: Performed By: #### C BC #### Plqkzfsnix755[address] [place], [place] [address]Dr. Slick Broderick WBC 10.5 103/ul Normal 4.0-11.0 The Comment on above: Performed By: #### C BC #### Vbizuubmjr0938[address] [place], [place] [address]Dr. Slick Broderick CT HEAD WO CONon 04-23-2022 CT HEAD WO CON Normal [facility] CULTURE BLOODon 04-23-2022 Microscopic examination of blood, culture Culture Observations: NO GROWTH AT 5 DAYS. Normal The Comment on above: Performed By: #### B LDCX2 #### Vutkbyawdj109[address] [place], [place] [address]Dr. Slick Broderick Microscopic examination of blood, culture Culture Observations: NO GROWTH AT 5 DAYS. Normal The Comment on above: Performed By: #### B LDCX1 #### Wddyyeloqr7683 [place] [address]Dr. Slick Davie Covid-19 PCR (CVDTB)on 04-12 SARS-CoV-2 (COVID-19) RNA DONNIE+probe Ql (Unsp spec) Not detected Normal NOT DETECTED The Comment on above: Result Comment: When diagnostic [...] for this test is supported by the Operation Agent of Health and Human Service's declaration that [...] be used). Performed By: #### C VDTBH #### Dbpbytjiba[address] [place], [place] [address]Dr. Slick Davie LACTATE/LACTIC ACIDon 2021 Lactate [Moles/Vol] 1.2 mmol/L Normal 0.4-1.9 [facility] Comment on above: Performed By: #### L ACT #### Dsrqoiuvnr37[address] [place], [place] [address]Dr. Slick Broderick PROF 14(COMP METB)on 022 Albumin [Mass/Vol] 2.9 g/dL Critically low 3.4-5.0 [facility] Comment on above: Performed By: #### C MP, CMADM, BNP #### Hbnbdpdnxz1786 [place] [id number]. Slick Broderick Albumin/Globulin [Mass ratio] 0.9 {ratio} Normal [facility] Comment on above: Performed By: #### C MP, CMADM, BNP #### Bnszpbyxwz9017 [place] [address]Dr. Slick Broderick ALP [Catalytic activity/Vol] 88 U/L Normal 46-116 [facility] Comment on above: Performed By: #### C MP, CMADM, BNP #### Lkictqtycv7504 [place] [address]Dr. Slick Broderick ALT [Catalytic activity/Vol] 22 U/L Normal 14-59 The Comment on above: Performed By: #### C MP, CMADM, BNP #### Zsqjnxweqm4033 [place] [address]Dr. Slick Davie Anion gap [Moles/Vol] 14.0 mmol/L Normal [facility] Comment on above: Performed By: #### C MP, CMADM, BNP #### Ozdrdotgxc030[address] [place], [place] [address]Dr. Meaganwendie Broderick AST [Catalytic activity/Vol] 26 U/L Normal 15-37 [facility] Comment on above: Performed By: #### C MP, CMADM, BNP #### Obfkmvotpd022[address] [place], [place] [address]Dr. Slick Davie Bilirubin [Mass/Vol] 0.5 mg/dL Normal 0.2-1.0 [facility] Comment on above: Performed By: #### C MP, CMADM, BNP #### Udctdywgxj435[address] [place], [place] [address]Dr. Slick Broderick Calcium [Mass/Vol] 9.7 mg/dL Normal 8.5-10.1 [facility] Comment on above: Performed By: #### C MP, CMADM, BNP #### Osnptadxyo767[address] [place], [place] [address]Dr. Slick Broderick Chloride [Moles/Vol] 105 mmol/L Normal 98-107 [facility] Comment on above: Performed By: #### C MP, CMADM, BNP #### Lrxvhfyeow3318 [place] [address]Dr. Slick Broderick CO2 [Moles/Vol] 27.0 mmol/L Normal 21.0-32.0 [facility] Comment on above: Performed By: #### C MP, CMADM, BNP #### Clttounbwi7386 [place] [address]Dr. Slick Broderick Creatinine [Mass/Vol] 1.57 mg/dL Critically high 0.55-1.02 [facility] Comment on above: Performed By: #### C MP, CMADM, BNP #### Zamffudiav7172 [place] [address]Dr. Slick Broderick EGFR-AF TONGAN 39 mL/min/1.73m2 Critically low >=60 [facility] Comment on above: Performed By: #### C MP, CMADM, BNP #### Eznhnacycf9004 [place] [address]Dr. Slick Broderick EGFR-NON AF TONGAN 32 mL/min/1.73m2 Critically low >=60 [facility] Comment on above: Performed By: #### C MP, CMADM, BNP #### Kkhfiiuqtv8018 [place] [address]Dr. Slick Broderick Globulin (S) [Mass/Vol] 3.2 g/dL Normal [facility] Comment on above: Performed By: #### C MP, CMADM, BNP #### Xeqfsgdkso4624 [place] [address]Dr. Slick Broderick Glucose [Mass/Vol] 128 mg/dL Critically high 74-106 [facility] Comment on above: Performed By: #### C MP, CMADM, BNP #### Jczwocpxld1315 [place] [address]Dr. Slick Broderick Potassium [Moles/Vol] 4.0 mmol/L Normal 3.5-5.1 [facility] Comment on above: Performed By: #### C MP, CMADM, BNP #### Zijfqgwqqy6716 [place] [address]Dr. Slick Broderick Protein [Mass/Vol] 6.1 g/dL Critically low 6.4-8.2 Th e Comment on above: Performed By: #### C MP, CMADM, BNP #### Ovqibnouru7893 [place] [address]Dr. Slick Broderick Sodium [Moles/Vol] 142 mmol/L Normal 136-145 [facility] Comment on above: Performed By: #### C MP, CMADM, BNP #### Qjpwsjwslo9465[address] [place], [place] [address]Dr. Slick Broderick Urea nitrogen [Mass/Vol] 34.0 mg/dL Critically high 7.0-18.0 [facility] Comment on above: Performed By: #### C MP, CMADM, BNP #### Vropyqkzbg717354 [address] [place], [place] [address]Dr. Slick Broderick Urea nitrogen/Creatinine [Mass ratio] 21.7 mg/mg Normal [facility] Comment on above: Performed By: #### C MP, CMADM, BNP #### Xaqtphovgj637[address] [place], [place] [address]Dr. Slick Broderick PROTIMEon 04-23-2022 INR Coag (PPP) [Relative time] 1.10 {INR} Normal [facility] Comment on above: Performed By: #### P T, PTT #### Rizakhypkk35[address] [place], [place] [address]Dr. Slick Broderick INR GUIDELINES SEE BELOW Normal [facility] Comment on above: Result Comment: EDMUND RED INR: 2.0 - 3.0 CONDITIONS NOT LISTED BELOW 2.5 - 3.5 FOR PROSTHETIC HEART VALVE REPLACEMENT 2.5 - 3.5 RECURRENT THROMBOSIS Performed By: #### P T, PTT #### Beqzljjbkp28[address] [place], [place] [address]Dr. Slick Broderick PT Coag (PPP) [Time] 11.8 s Critically high 9.0-11.6 [facility] Comment on above: Performed By: #### P T, PTT #### Kfztodtgcc158[address] [place], [place] [address]Dr. Slick Broderick PTTon 04-23-2022 aPTT Coag (Bld) [Time] 27.7 s Normal 22.3-36.2 Th [facility] Comment on above: Performed By: #### P T, PTT #### Kyiqmndwbj6537[address] [place], [place] [address]Dr. Slick Broderick TYPE AND SCREENon 04-23-2022 TYPE AND SCREEN Negative Normal [facility] Comment on above: Performed By: #### T NS #### Yuyobjadms617[address] [place], [place] [address]Dr. Slick Broderick XR CHEST 1 Von 04-23-2022 XR CHEST 1 V Normal The CBC AUTO DIFFon 04-22-2022 BASO # 0.0 103/ul Normal 0.0-0.1 [facility] Comment on above: Performed By: #### C BC #### Dqastmjvkg969[address] [place], [place] [address]Dr. Slick Broderick Basophils/100 WBC (Bld) 0.3 % Normal 0.2-2.0 [facility] Comment on above: Performed By: #### C BC #### Dcjgympydp539[address] [place], [place] [address]Dr. Slick Broderick EO # 0.1 103/ul Normal 0.0-0.7 [facility] Comment on above: Performed By: #### C BC #### Pawbobjxxy072[address] [place], [place] [address]Dr. Slick Broderick Eosinophils/100 WBC (Bld) 1.4 % Normal 0.9-7.0 [facility] Comment on above: Performed By: #### C BC #### Xeehgdydnk4910[address] [place], [place] [address]Dr. Slick Broderick Erythrocyte distribution width (RBC) [Ratio] 13.8 % Normal 11.0-15.0 [facility] Comment on above: Performed By: #### C BC #### Ngdzozhrse4737[address] [place], [place] [address]Dr. Slick Broderick Hematocrit (Bld) [Volume fraction] 27.4 % Critically low 36.0-48.0 [facility] Comment on above: Performed By: #### C BC #### Wpxxzaweyn6399 [place] [id number]. Slick Broderick Hemoglobin (Bld) [Mass/Vol] 8.8 g/dL Critically low 12.0-16.0 [facility] Comment on above: Performed By: #### C BC #### Eskbqrovsc5819 [place] [id number]. Slick Broderick IG # 0.04 10e3/ul Critically high 0.00-0.03 [facility] Comment on above: Performed By: #### C BC #### Xlprcdpfpz5312 [place] [address]Dr. Slick Broderick IG % 0.6 % Critically high 0.0-0.5 [facility] Comment on above: Performed By: #### C BC #### Yvzvpkdlsr5122 [place] [address]Dr. Slick Broderick LYMPH # 0.7 103/ul Critically low 1.2-3.8 [facility] Comment on above: Performed By: #### C BC #### Wztuvpnwya2255 [place] [id number]. Slick Broderick Lymphocytes/100 WBC (Bld) 9.8 % Critically low 20.5-60.0 [facility] Comment on above: Performed By: #### C BC #### Gttxpsrtnh7168 [place] [address]Dr. Slick Broderick MANUAL DIFF REQ NO Normal [facility] Comment on above: Performed By: #### C BC #### Thfptwtgkb2129 [place] [id number]. Slick Broderick MCH (RBC) [Entitic mass] 28.9 pg Normal 26.7-34.0 The Comment on above: Performed By: #### C BC #### Dhtcsdmwzj2495 [place] [id number]. Slick Broderick MCHC (RBC) [Mass/Vol] 32.1 g/dL Normal 29.9-35.2 The Comment on above: Performed By: #### C BC #### Raeqxtpdjk3730 [place] [id number]. Slick Broderick MCV (RBC) [Entitic vol] 90.1 fL Normal 81.0-99.0 [facility] Comment on above: Performed By: #### C BC #### Yhyjgmmebs1560 [place] [id number]. Slick Borderick MONO # 0.6 103/ul Normal 0.3-0.8 [facility] Comment on above: Performed By: #### C BC #### Lkcmaxavha4782 [place] [address]Dr. Slick Broderick Monocytes/100 WBC (Bld) 7.6 % Normal 1.7-12.0 [facility] Comment on above: Performed By: #### C BC #### Ilephuzwzo3366[address] [place], [place] [address]Dr. Slick Broderick NEUT # 5.9 103/ul Normal 1.4-6.5 [facility] Comment on above: Performed By: #### C BC #### Kwvvpesmws7793 [place] [address]Dr. Slick Broderick Neutrophils/100 WBC (Bld) 80.3 % Critically high 43.0-75.0 [facility] Comment on above: Performed By: #### C BC #### Iqioxpllcy8526 [place] [id number]. Slick Broderick Platelet mean volume (Bld) [Entitic vol] 9.5 fL Normal 9.5-13.5 [facility] Comment on above: Performed By: #### C BC #### Ciqckfnknb9732 [place] [id number]. Slick Broderick PLT 204 103/ul Normal 150-450 The Comment on above: Performed By: #### C BC #### Ryzojkgisf1006 [place] [id number]. Meaganwendie Davie RBC 3.04 106/ul Critically low 4.20-5.40 [facility] Comment on above: Performed By: #### C BC #### Mmmlqhatfj6186 [place] [id number]. Slick Broderick WBC 7.3 103/ul Normal 4.0-11.0 [facility] Comment on above: Performed By: #### C BC #### Jgpfdpneqq3468 [place] [id number]. Slick Broderick BASO # 0.0 103/ul Normal 0.0-0.1 [facility] Comment on above: Performed By: #### C BC #### Yyojcakjcr1293[address] [place], [place] [address]Dr. Slick Broderick Basophils/100 WBC (Bld) 0.5 % Normal 0.2-2.0 [facility] Comment on above: Performed By: #### C BC #### Iswbvvxnit940[address] [place], [place] [address]Dr. Slick Broderick EO # 0.6 103/ul Normal 0.0-0.7 [facility] Comment on above: Performed By: #### C BC #### Dgvbbqsgvx177[address] [place], [place] [address]Dr. Slick Broderick Eosinophils/100 WBC (Bld) 10.4 % Critically high 0.9-7.0 [facility] Comment on above: Performed By: #### C BC #### Wqdzxcqsmv01[address] [place], [place] [address]Dr. Meaganwendie Broderick Erythrocyte distribution width (RBC) [Ratio] 14.0 % Normal 11.0-15.0 [facility] Comment on above: Performed By: #### C BC #### Hkbchbgmwu264[address] [place], [place] [address]Dr. Slick Broderick Hematocrit (Bld) [Volume fraction] 26.5 % Critically low 36.0-48.0 [facility] Comment on above: Performed By: #### C BC #### Vyugqhebxv522[address] [place], [place] [address]Dr. Slick Broderick Hemoglobin (Bld) [Mass/Vol] 8.4 g/dL Critically low 12.0-16.0 [facility] Comment on above: Performed By: #### C BC #### Odxctptsbc7172 [place] [id number]. Meaganwendie Davie IG # 0.02 10e3/ul Normal 0.00-0.03 [facility] Comment on above: Performed By: #### C BC #### Rnzsthldve8091 [place] [id number]. Slick Broderick IG % 0.4 % Normal 0.0-0.5 [facility] Comment on above: Performed By: #### C BC #### Jujlnfhqrx1559 [place] [address]Dr. Slick Broderick LYMPH # 0.9 103/ul Critically low 1.2-3.8 [facility] Comment on above: Performed By: #### C BC #### Mwonmslypb6809 [place] [address]DrEmma Broderick Lymphocytes/100 WBC (Bld) 15.6 % Critically low 20.5-60.0 [facility] Comment on above: Performed By: #### C BC #### Doeclfmkir6325 [place] [id number] Broderick MANUAL DIFF REQ NO Normal [facility] Comment on above: Performed By: #### C BC #### Ksmakbyjmw4456 [place] [id number]. Slick Broderick MCH (RBC) [Entitic mass] 29.2 pg Normal 26.7-34.0 [facility] Comment on above: Performed By: #### C BC #### Loouedrtkn2816 [place] [id number]. Slick Broderick MCHC (RBC) [Mass/Vol] 31.7 g/dL Normal 29.9-35.2 [facility] Comment on above: Performed By: #### C BC #### Tcnqabvtkx0320 [place] [id number] Broderick MCV (RBC) [Entitic vol] 92.0 fL Normal 81.0-99.0 [facility] Comment on above: Performed By: #### C BC #### Ryyosfwqbu5065 [place] [id number]. Slick Broderick MONO # 0.6 103/ul Normal 0.3-0.8 [facility] Comment on above: Performed By: #### C BC #### Fwkuyyfvpq2731 [place] [id number]. Slick Broderick Monocytes/100 WBC (Bld) 10.1 % Normal 1.7-12.0 [facility] Comment on above: Performed By: #### C BC #### Ykwooovnbx7790 [place] [id number]. Slick Broderick NEUT # 3.5 103/ul Normal 1.4-6.5 [facility] Comment on above: Performed By: #### C BC #### Xdqqdulfbb7480 [place] [address]Dr. Slick Broderick Neutrophils/100 WBC (Bld) 63.0 % Normal 43.0-75.0 [facility] Comment on above: Performed By: #### C BC #### Hnphemrrqc6315 [place] [id number]. Slick Broderick Platelet mean volume (Bld) [Entitic vol] 10.0 fL Normal 9.5-13.5 [facility] Comment on above: Performed By: #### C BC #### [id number] [place] [id number]. Slick Broderick PLT 198 103/ul Normal 150-450 The Comment on above: Performed By: #### C BC #### Idjedbkxxg0578 [place] [id number]. Slick Broderick RBC 2.88 106/ul Critically low 4.20-5.40 [facility] Comment on above: Performed By: #### C BC #### Iwyqlpgdyp2663 [place] [id number]. Slick Broderick WBC 5.6 103/ul Normal 4.0-11.0 The Comment on above: Performed By: #### C BC #### Uggrobpwxu2212 [place] [address]Dr. Slick Broderick CT HEAD WO CONon 04-22-2022 CT HEAD WO CON Normal [facility] POINT OF CARE GLUCOSEon 04-12 Glucose [Mass/Vol] 110 mg/dL Critically high 74-[address] [facility] Comment on above: Performed By: #### P OCGLUC #### [id number] [place], [place] [address]Dr. Slick Broderick PROF 14(COMP METB)on 022 Albumin [Mass/Vol] 3.0 g/dL Critically low 3.4-5.0 Th [facility] Comment on above: Performed By: #### C MP #### Aeiptsejuu[address] [place], [place] [address]Dr. Slick Broderick Albumin/Globulin [Mass ratio] 0.9 {ratio} Normal [facility] Comment on above: Performed By: #### C MP #### Okvcdaxfpw148254 [address] [place], [place] [address]Dr. Slick Broderick ALP [Catalytic activity/Vol] 93 U/L Normal 46-116 [facility] Comment on above: Performed By: #### C MP #### Jkkdpgsxgx867[address] [place], [place] [address]Dr. Slick Broderick ALT [Catalytic activity/Vol] 22 U/L Normal 14-59 [facility] Comment on above: Performed By: #### C MP #### Wrvysknrsz7538[address] [place], [place] [address]Dr. Slick Broderick Anion gap [Moles/Vol] 8.9 mmol/L Normal [facility] Comment on above: Performed By: #### C MP #### Pecxdmnydj307[address] [place], [place] [address]Dr. Slick Broderick AST [Catalytic activity/Vol] 18 U/L Normal 15-37 [facility] Comment on above: Performed By: #### C MP #### Mxhdlpufys8637[address] [place], [place] [address]Dr. Slick Broderick Bilirubin [Mass/Vol] 0.3 mg/dL Normal 0.2-1.0 [facility] Comment on above: Performed By: #### C MP #### Kxgjgejhjv9464[address] [place], [place] [address]Dr. Slick Davie Calcium [Mass/Vol] 9.6 mg/dL Normal 8.5-10.1 [facility] Comment on above: Performed By: #### C MP #### Defjxcmlpp0436[address] [place], [place] [address]Dr. Slick Broderick Chloride [Moles/Vol] 104 mmol/L Normal 98-107 [facility] Comment on above: Performed By: #### C MP #### Jmoimolzho770[address] [place], [place] [address]Dr. Slick Broderick CO2 [Moles/Vol] 30.8 mmol/L Normal 21.0-32.0 [facility] Comment on above: Performed By: #### C MP #### Ytwjnhdrpt7000[address] [place], [place] [address]Dr. Slick Broderick Creatinine [Mass/Vol] 1.73 mg/dL Critically high 0.55-1.02 [facility] Comment on above: Performed By: #### C MP #### Hbbpszmhjn723[address] [place], [place] [address]Dr. Slick Broderick EGFR-AF TONGAN 35 mL/min/1.73m2 Critically low >=60 [facility] Comment on above: Performed By: #### C MP #### Cubvsxyfut93[address] [place], [place] [address]Dr. Slick Broderick EGFR-NON AF TONGAN 29 mL/min/1.73m2 Critically low >=60 [facility] Comment on above: Performed By: #### C MP #### Nkxzgerney912[address] [place], [place] [address]Dr. Slick Broderick Globulin (S) [Mass/Vol] 3.4 g/dL Normal T [facility] Comment on above: Performed By: #### C MP #### Niarqsgzbr896454 [address] [place], [place] [address]Dr. Slick Broderick Glucose [Mass/Vol] 94 mg/dL Normal 74-106 The [facility] Comment on above: Performed By: #### C MP #### Ajjaxamviw4830 [place] [address]Dr. Slick Broderick Potassium [Moles/Vol] 4.7 mmol/L Normal 3.5-5.1 The Comment on above: Performed By: #### C MP #### Aponvohkkw4579 [place] [address]Dr. Slick Broderick Protein [Mass/Vol] 6.4 g/dL Normal 6.4-8.2 [facility] Comment on above: Performed By: #### C MP #### Bkfjukhasg2237[address] [place], [place] [address]Dr. Slick Broderick Sodium [Moles/Vol] 139 mmol/L Normal 136-145 [facility] Comment on above: Performed By: #### C MP #### Cydenmkvbo9533[address] [place], [place] [address]Dr. Slick Broderick Urea nitrogen [Mass/Vol] 46.0 mg/dL Critically high 7.0-18.0 [facility] Comment on above: Performed By: #### C MP #### Chslqfflrz7814[address] [place], [place] [address]Dr. Slick Broderick Urea nitrogen/Creatinine [Mass ratio] 26.6 mg/mg Normal [facility] Comment on above: Performed By: #### C MP #### Vqfiggmabq2365 [place] [address]Dr. Slick Broderick PROF CHEM 8 (BAS METB)on Anion gap [Moles/Vol] 8.6 mmol/L Normal [facility] Comment on above: Performed By: #### B MP #### Cggyoedbew7880[address] [place], [place] [address]Dr. Slick Broderick Calcium [Mass/Vol] 9.9 mg/dL Normal 8.5-10.1 [facility] Comment on above: Performed By: #### B MP #### Kygrlcraeg1971 [place] [address]Dr. Slick Broderick Chloride [Moles/Vol] 103 mmol/L Normal 98-107 [facility] Comment on above: Performed By: #### B MP #### Ajurqiezai927[address] [place], [place] [address]Dr. Slick Broderick CO2 [Moles/Vol] 29.5 mmol/L Normal 21.0-32.0 [facility] Comment on above: Performed By: #### B MP #### Uehwgagdyr513[address] [place], [place] [address]Dr. Slick Broderick Creatinine [Mass/Vol] 1.62 mg/dL Critically high 0.55-1.02 [facility] Comment on above: Performed By: #### B MP #### Ziaaumsdxp61995[address] [place], [place] [address]Dr. Slick Davie EGFR-AF TONGAN 38 mL/min/1.73m2 Critically low >=60 The Comment on above: Performed By: #### B MP #### Bkunwnywjo316[address] [place], [place] [address]Dr. Slick Broderick EGFR-NON AF TONGAN 31 mL/min/1.73m2 Critically low >=60 [facility] Comment on above: Performed By: #### B MP #### Qqsnpculam0615[address] [place], [place] [address]Dr. Slick Broderick Glucose [Mass/Vol] 125 mg/dL Critically high 74-[address] [facility] Comment on above: Performed By: #### B MP #### Juthowbdup6900[address] [place], [place] [address]Dr. Slick Broderick Potassium [Moles/Vol] 4.1 mmol/L Normal 3.5-5.1 The Comment on above: Performed By: #### B MP #### Hhktvnsvzy608[address] [place], [place] [address]Dr. Meaganwendie Broderick Sodium [Moles/Vol] 137 mmol/L Normal 136-145 [facility] Comment on above: Performed By: #### B MP #### Zndhxnsrhb9750 [place] [address]Dr. Slick Broderick Urea nitrogen [Mass/Vol] 41.0 mg/dL Critically high 7.0-18.0 The Comment on above: Performed By: #### B MP #### Lrbwfkipsm2435[address] [place], [place] [address]Dr. Slick Broderick Urea nitrogen/Creatinine [Mass ratio] 25.3 mg/mg Normal The Comment on above: Performed By: #### B MP #### Gtjdqcrelx8714 [place] [address]Dr. Slick Broderick PROTIMEon 04-22-2022 INR Coag (PPP) [Relative time] 1.08 {INR} Normal The Comment on above: Performed By: #### P T, PTT #### Qmowmejsku698[address] [place], [place] [address]Dr. Slick Broderick INR GUIDELINES SEE BELOW Normal [facility] Comment on above: Result Comment: EDMUND RED INR: 2.0 - 3.0 CONDITIONS NOT LISTED BELOW 2.5 - 3.5 FOR PROSTHETIC HEART VALVE REPLACEMENT 2.5 - 3.5 RECURRENT THROMBOSIS Performed By: #### P T, PTT #### Dqgbpoeacv656[address] [place], [place] [address]Dr. Slick Broderick PT Coag (PPP) [Time] 11.6 s Normal 9.0-11.6 The Comment on above: Performed By: #### P T, PTT #### Tmovmkgfvg114[address] [place], [place] [address]Dr. Slick Broderick PTTon 04-22-2022 aPTT Coag (Bld) [Time] 30.7 s Normal 22.3-36.2 Th e Comment on above: Performed By: #### P T, PTT #### Tgjiyavmkr181454 [address] [place], [place] [address]Dr. Slick Broderick XR TIB_FIB RT 2Von 2 XR TIB_FIB RT 2V Normal [facility] CBC AUTO DIFFon 04-21-2022 BASO # 0.0 103/ul Normal 0.0-0.1 [facility] Comment on above: Performed By: #### C BC #### Bxkqxtifzd917054 [address] [place], [place] [address]Dr. Slick Davie Basophils/100 WBC (Bld) 0.3 % Normal 0.2-2.0 [facility] Comment on above: Performed By: #### C BC #### Ykalvbumyz113754 [address] [place], [place] [address]Dr. Slick Broderick EO # 0.6 103/ul Normal 0.0-0.7 [facility] Comment on above: Performed By: #### C BC #### Bmdhcadezu812[address] [place], [place] [address]Dr. Meaganwendie Broderick Eosinophils/100 WBC (Bld) 10.2 % Critically high 0.9-7.0 [facility] Comment on above: Performed By: #### C BC #### Iybcxikatc298[address] [place], [place] [address]Dr. Meaganwendie Broderick Erythrocyte distribution width (RBC) [Ratio] 14.2 % Normal 11.0-15.0 [facility] Comment on above: Performed By: #### C BC #### Zyxstywzyy906[address] [place], [place] [address]Dr. Slick Broderick Hematocrit (Bld) [Volume fraction] 25.5 % Critically low 36.0-48.0 [facility] Comment on above: Performed By: #### C BC #### Xvnmcpvqfw298[address] [place], [place] [address]Dr. Slick Davie Hemoglobin (Bld) [Mass/Vol] 8.1 g/dL Critically low 12.0-16.0 [facility] Comment on above: Performed By: #### C BC #### Nxudbkrkbg196654 [address] [place], [place] [address]Dr. Slick Broderick IG # 0.02 10e3/ul Normal 0.00-0.03 [facility] Comment on above: Performed By: #### C BC #### Pxnrsktxca747454 [address] [place], [place] [address]Dr. Slick Broderick IG % 0.3 % Normal 0.0-0.5 [facility] Comment on above: Performed By: #### C BC #### Kmigzkrmpx6529 [place] [address]Dr. Slick Davie LYMPH # 0.8 103/ul Critically low 1.2-3.8 [facility] Comment on above: Performed By: #### C BC #### Fthvmjgixy5128 [place] [address]Dr. Slick Davie Lymphocytes/100 WBC (Bld) 13.2 % Critically low 20.5-60.0 [facility] Comment on above: Performed By: #### C BC #### Clpleswsmf798854 [address] [place], [place] [address]Dr. Slick Broderick MANUAL DIFF REQ NO Normal [facility] Comment on above: Performed By: #### C BC #### Sqpdljiqzn6978 [place] [address]Dr. Meaganwendie Broderick MCH (RBC) [Entitic mass] 29.5 pg Normal 26.7-34.0 [facility] Comment on above: Performed By: #### C BC #### Tqcwunoyqn[address] [place], [place] [address]Dr. Slick Davie MCHC (RBC) [Mass/Vol] 31.8 g/dL Normal 29.9-35.2 [facility] Comment on above: Performed By: #### C BC #### Poqdqauytm3090 [place] [address]Dr. Slick Broderick MCV (RBC) [Entitic vol] 92.7 fL Normal 81.0-99.0 [facility] Comment on above: Performed By: #### C BC #### Qoxxsjuojz162854 [address] [place], [place] [address]Dr. Slick Broderick MONO # 0.6 103/ul Normal 0.3-0.8 [facility] Comment on above: Performed By: #### C BC #### Ikfjvjngkb5885 [place] [address]Dr. Slick Broderick Monocytes/100 WBC (Bld) 9.2 % Normal 1.7-12.0 [facility] Comment on above: Performed By: #### C BC #### Ddkmmovlcu3046 [place] [address]Dr. Slick Broderick NEUT # 4.1 103/ul Normal 1.4-6.5 [facility] Comment on above: Performed By: #### C BC #### Alnftfsaon4801 [place] [address]Dr. Slick Broderick Neutrophils/100 WBC (Bld) 66.8 % Normal 43.0-75.0 [facility] Comment on above: Performed By: #### C BC #### Zxxfpfvhli6874 [place] [address]Dr. Slick Broderick Platelet mean volume (Bld) [Entitic vol] 9.5 fL Normal 9.5-13.5 [facility] Comment on above: Performed By: #### C BC #### Ynbsttbioo098[address] [place], [place] [address]Dr. Slick Broderick PLT 189 103/ul Normal 150-450 The Comment on above: Performed By: #### C BC #### Yeatkhewkp[address] [place], [place] [id number]. Slick Broderick RBC 2.75 106/ul Critically low 4.20-5.40 [facility] Comment on above: Performed By: #### C BC #### Lypwkjdrst7996 [place] [id number]. Slick Broderick WBC 6.2 103/ul Normal 4.0-11.0 The Comment on above: Performed By: #### C BC #### Qokjeukdfw6135 [place] [address]Dr. Slick Broderick BASO # 0.1 103/ul Normal 0.0-0.1 The Comment on above: Performed By: #### C BC #### Anslmvcnqi7269 [place] [address]Dr. Slick Broderick Basophils/100 WBC (Bld) 0.8 % Normal 0.2-2.0 [facility] Comment on above: Performed By: #### C BC #### Mhgdnqsvve1380 [place] [address]DrEmma Broderick EO # 0.8 103/ul Critically high 0.0-0.7 [facility] Comment on above: Performed By: #### C BC #### Pcorwvctvu6991 [place] [address]DrEmma Broderick Eosinophils/100 WBC (Bld) 11.7 % Critically high 0.9-7.0 [facility] Comment on above: Performed By: #### C BC #### Nnmwjikzmf518[address] [place], [place] [address]Dr. Slick Broderick Erythrocyte distribution width (RBC) [Ratio] 14.1 % Normal 11.0-15.0 [facility] Comment on above: Performed By: #### C BC #### Elteciehmt0933[address] [place], [place] [address]DrEmma Broderick Hematocrit (Bld) [Volume fraction] 27.3 % Critically low 36.0-48.0 [facility] Comment on above: Performed By: #### C BC #### Ppanvdvvaa1115[address] [place], [place] [address]DrEmma Broderick Hemoglobin (Bld) [Mass/Vol] 8.4 g/dL Critically low 12.0-16.0 [facility] Comment on above: Performed By: #### C BC #### Nrjtbmoeao9425[address] [place], [place] [address]DrEmma Broderick IG # 0.02 10e3/ul Normal 0.00-0.03 [facility] Comment on above: Performed By: #### C BC #### Jlznjmazte9816[address] [place], [place] [address]DrEmma Broderick IG % 0.3 % Normal 0.0-0.5 [facility] Comment on above: Performed By: #### C BC #### Bcqjpuvfxx14225[address] [place], [place] [address]DrEmma Broderick LYMPH # 1.0 103/ul Critically low 1.2-3.8 [facility] Comment on above: Performed By: #### C BC #### Ptnyybzepg6650 [place] [address]Dr. Slick Broderick Lymphocytes/100 WBC (Bld) 14.5 % Critically low 20.5-60.0 [facility] Comment on above: Performed By: #### C BC #### Iedjcujlwt4969 [place] [address]DrEmma Broderick MANUAL DIFF REQ NO Normal [facility] Comment on above: Performed By: #### C BC #### Urqzvnbhxs6272 [place] [address]Dr. Slick Broderick MCH (RBC) [Entitic mass] 29.2 pg Normal 26.7-34.0 [facility] Comment on above: Performed By: #### C BC #### Peqtblhful176254 [address] [place], [place] [address]Dr. Slick Broderick MCHC (RBC) [Mass/Vol] 30.8 g/dL Normal 29.9-35.2 [facility] Comment on above: Performed By: #### C BC #### Yblzkwisty5517[address] [place], [place] [address]DrEmma Broderick MCV (RBC) [Entitic vol] 94.8 fL Normal 81.0-99.0 [facility] Comment on above: Performed By: #### C BC #### Ceojxqtnpq507[address] [place], [place] [address]Dr. Slick Broderick MONO # 0.6 103/ul Normal 0.3-0.8 [facility] Comment on above: Performed By: #### C BC #### Xgeulyzniq47475[address] [place], [place] [address]Dr. Slick Broderick Monocytes/100 WBC (Bld) 9.7 % Normal 1.7-12.0 [facility] Comment on above: Performed By: #### C BC #### Cyquwxvkjs875[address] [place], [place] [address]Dr. Slick Broderick NEUT # 4.2 103/ul Normal 1.4-6.5 The Comment on above: Performed By: #### C BC #### Uvsmjlhxwj3637 [place] [address]Dr. Slick Brdoerick Neutrophils/100 WBC (Bld) 63.0 % Normal 43.0-75.0 [facility] Comment on above: Performed By: #### C BC #### Nfcgkcuukx2594 [place] [address]Dr. Slick Broderick Platelet mean volume (Bld) [Entitic vol] 10.0 fL Normal 9.5-13.5 The Comment on above: Performed By: #### C BC #### Eykvzhcqod6128 [place] [address]Dr. Slick Broderick PLT 210 103/ul Normal 150-450 The Comment on above: Performed By: #### C BC #### Vzliivhsfo3192 [place] [address]Dr. Slick Broderick RBC 2.88 106/ul Critically low 4.20-5.40 [facility] Comment on above: Performed By: #### C BC #### Korlcldqcb027[address] [place], [place] [address]Dr. Slick Broderick WBC 6.6 103/ul Normal 4.0-11.0 The Comment on above: Performed By: #### C BC #### Xpgkebddhq064754 [address] [place], [place] [address]Dr. Slick Broderick CRPon 04-21-2022 CRP 0.4 mg/dL Normal <=1.0 The Comment on above: Performed By: #### H STROPN, CRP, CMP #### Ohaljcydih7718 [place] [address]Dr. S[address] CT HEAD WO CONon 04-21-2022 CT HEAD WO CON Normal [facility] CULTURE BLOODon 04-21-2022 Microscopic examination of blood, culture Culture Observations: NO GROWTH AT 5 DAYS. Normal The Comment on above: Performed By: #### B LDCX2 #### Zgkjtkkmet2390 [place] [id number]. Slick Broderick Microscopic examination of blood, culture Culture Observations: NO GROWTH AT 5 DAYS. Normal The Comment on above: Performed By: #### B LDCX1 #### Sjswvdzomw1286 [place] [id number]. Slick Broderick CULTURE URINEon 04-21-2022 CULTURE URINE Culture Observations: MODERATE GROWTH OF MIXED GENITAL OMAR. NO POTENTIAL PATHOGENS SEEN. Normal The Comment on above: Performed By: #### U RCX #### Jpfupugghp9579 [place] [phone]. Slick Broderick Covid-19 PCR (CVDTB)on 04-12 SARS-CoV-2 (COVID-19) RNA DONNIE+probe Ql (Unsp spec) Not detected Normal NOT DETECTED The Comment on above: Result Comment: When diagnostic [...] for this test is supported by the [place] of [employer] and Human Service's declaration that [...] be used). Performed By: #### C VDTBH #### Kwjdgeyyfk9967 [place] [phone]. Slick Broderick ER URINE PROFILEon 2 Bilirubin Ql (U) Negative Normal NEGATIVE [facility] Comment on above: Performed By: #### E JANIS PLEITEZ #### Rpfezmhqtd5527 [place] [phone]. Slick Broderick Clarity (U) CLEAR Normal CLEAR The Comment on above: Performed By: #### AMOS PEDROICRO #### Btyyghrwmo2050[address] [place], [place] [address]Dr. Slick Broderick Color (U) LT. YELLOW Normal YELLOW The Comment on above: Performed By: #### Dennise PLEITEZ UMICRO #### Rihzspkdnq436[address] [place], [place] [address]Dr. Slick Broderick ERUAHD A micrscopic examination will be performed if indicated. Normal The Comment on above: Performed By: #### Dennise PLEITEZ UMICRO #### Ispqinytzg528[address] [place], [place] [address]Dr. Slick Broderick Glucose Ql (U) Negative Normal NEGATIVE [facility] Comment on above: Performed By: #### Dennise PLEITEZ UMICRO #### Gyclsnmpqi829[address] [place], [place] [address]Dr. Slick Broderick Hemoglobin Ql (U) Negative Normal NEGATIVE [facility] Comment on above: Performed By: #### Dennise PLEITEZ UMICRO #### Cjmqzioaiw968254 [address] [place], [place] [address]Dr. Slick Broderick Ketones Ql (U) Negative Normal NEGATIVE [facility] Comment on above: Performed By: #### Dennise PLEITEZ UMICRO #### Lzjowibyde087254 [address] [place], [place] [address]Dr. Slick Broderick LEUKOCYTES TRACE Abnormal NEGATIVE The Comment on above: Performed By: #### Dennise PLEITEZ UMICRO #### Acvqteiqab811454 [address] [place], [place] [address]Dr. Slick Broderick Nitrite Ql (U) Negative Normal NEGATIVE [facility] Comment on above: Performed By: #### Dennise PLEITEZ UMICRO #### Mkrbkhqepw234[address] [place], [place] [address]Dr. Slick Broderick pH (U) 5.5 [pH] Normal 5-9 The Comment on above: Performed By: #### AMBERLY PEDRORO #### Qegseijdhy3598 [place] [address]Dr. Slick Broderick SPEC GRAVITY 1.010 Normal 1.005-<=1.0 25 [facility] Comment on above: Performed By: #### AMBERLY PEDRORO #### Yvhxwwedro3253 [place] [address]Dr. Slick Broderick UA PROTEIN Negative Normal NEGATIVE/ TRACE [facility] Comment on above: Performed By: #### AMBERLY PEDRORO #### Xboqspsajs3695 [place] [address]Dr. Slick Broderick UR MICRO IND INDICATED Normal [facility] Comment on above: Performed By: #### AMBERLY PEDRORO #### Egyiblcrra112[address] [place], [place] [address]Dr. Slick Broderick Urobilinogen Qn (U) 0.2 {Hiren'U}/dL Normal 0.2 - 1. 0 [facility] Comment on above: Performed By: #### AMBERLY PEDRORO #### Odqczeawqf185[address] [place], [place] [address]Dr. Meaganwendie Davie LACTATE/LACTIC ACIDon 2021 Lactate [Moles/Vol] 1.0 mmol/L Normal 0.4-1.9 [facility] Comment on above: Performed By: #### L ACT #### Xvjkfmeuzk009354 [address] [place], [place] [address]Dr. Meaganwendie Davie POINT OF CARE GLUCOSEon 04-12 Glucose [Mass/Vol] 109 mg/dL Critically high 74-106 [facility] Comment on above: Performed By: #### P OCGLUC #### Sfryqcvotu9630[address] [place], [place] [address]Dr. Meaganwendie Davie Glucose [Mass/Vol] 93 mg/dL Normal 74-106 [facility] Comment on above: Performed By: #### P OCGLUC #### Szjkftlsne116[address] [place], [place] [address]Dr. Meaganwendie Broderick Glucose [Mass/Vol] 140 mg/dL Critically high 74-[address] [facility] Comment on above: Performed By: #### P OCGLUC #### Fntrhifgmc4879 [place] [address]Dr. Slick Broderick Glucose [Mass/Vol] 95 mg/dL Normal 74-106 [facility] Comment on above: Performed By: #### P OCGLUC #### Xoymqlrtzz549[address] [place], [place] [address]Dr. Slick Broderick PROF 14(COMP METB)on 022 Albumin [Mass/Vol] 2.9 g/dL Critically low 3.4-5.0 [facility] Comment on above: Performed By: #### C MP #### Pxlmaryueb920154 [address] [place], [place] [address]Dr. Slick Broderick Albumin/Globulin [Mass ratio] 0.9 {ratio} Normal [facility] Comment on above: Performed By: #### C MP #### Kjyxztvawg2227[address] [place], [place] [address]Dr. Slick Broderick ALP [Catalytic activity/Vol] 87 U/L Normal 46-116 [facility] Comment on above: Performed By: #### C MP #### Gdsuooitve1833[address] [place], [place] [address]Dr. Slick Broderick ALT [Catalytic activity/Vol] 21 U/L Normal 14-59 [facility] Comment on above: Performed By: #### C MP #### Noapcoyjkr589[address] [place], [place] [address]Dr. Slick Broderick Anion gap [Moles/Vol] 7.7 mmol/L Normal [facility] Comment on above: Performed By: #### C MP #### Cdosnayuzt684[address] [place], [place] [address]Dr. Slick Broderick AST [Catalytic activity/Vol] 11 U/L Critically low 15-37 [facility] Comment on above: Performed By: #### C MP #### Wgsysaodhs925[address] [place], [place] [address]Dr. Slick Broderick Bilirubin [Mass/Vol] 0.2 mg/dL Normal 0.2-1.0 [facility] Comment on above: Performed By: #### C MP #### Whqfjmkrau4641 [place] [address]Dr. Slick Broderick Calcium [Mass/Vol] 9.4 mg/dL Normal 8.5-10.1 [facility] Comment on above: Performed By: #### C MP #### Uzggwajyiw0711[address] [place], [place] [address]Dr. Silck Broderick Chloride [Moles/Vol] 107 mmol/L Normal 98-107 [facility] Comment on above: Performed By: #### C MP #### Zhqymcvfln8940[address] [place], [place] [address]Dr. Slick Broderick CO2 [Moles/Vol] 31.2 mmol/L Normal 21.0-32.0 [facility] Comment on above: Performed By: #### C MP #### Rybsclimcf20[address] [place], [place] [address]Dr. Slick Broderick Creatinine [Mass/Vol] 2.06 mg/dL Critically high 0.55-1.02 [facility] Comment on above: Performed By: #### C MP #### Zizievjafy7500[address] [place], [place] [address]Dr. Slick Broderick EGFR-AF TONGAN 29 mL/min/1.73m2 Critically low >=60 [facility] Comment on above: Performed By: #### C MP #### Itklxwggdt285[address] [place], [place] [address]Dr. Slick Broderick EGFR-NON AF TONGAN 24 mL/min/1.73m2 Critically low >=60 [facility] Comment on above: Performed By: #### C MP #### Yokahmckwf990[address] [place], [place] [address]Dr. Slick Broderick Globulin (S) [Mass/Vol] 3.4 g/dL Normal T [facility] Comment on above: Performed By: #### C MP #### Lsutjltzss238[address] [place], [place] [address]Dr. Slick Broderick Glucose [Mass/Vol] 93 mg/dL Normal 74-106 [facility] Comment on above: Performed By: #### C MP #### Lfxtbhiiuk6896 [place] [address]Dr. Slick Broderick Potassium [Moles/Vol] 4.9 mmol/L Normal 3.5-5.1 [facility] Comment on above: Performed By: #### C MP #### [id number] [place] [address]Dr. Slick Broderick Protein [Mass/Vol] 6.3 g/dL Critically low 6.4-8.2 [facility] Comment on above: Performed By: #### C MP #### Dandxcjldf[address] [place], [place] [address]Dr. Slick Broderick Sodium [Moles/Vol] 141 mmol/L Normal 136-145 [facility] Comment on above: Performed By: #### C MP #### Vrcxdlzdcb[address] [place], [place] [address]Dr. Slick Broderick Urea nitrogen [Mass/Vol] 63.0 mg/dL Critically high 7.0-18.0 [facility] Comment on above: Performed By: #### C MP #### Hsrykukvyw[address] [place], [place] [address]Dr. Slick Broderick Urea nitrogen/Creatinine [Mass ratio] 30.6 mg/mg Normal [facility] Comment on above: Performed By: #### C MP #### Izrcwgpmho[address] [place] [address]Dr. Slick Broderick Albumin [Mass/Vol] 3.1 g/dL Critically low 3.4-5.0 [facility] Comment on above: Performed By: #### H STROPN, CRP, CMP #### Xtygygydgu90[address] [place] [address]Dr. Slick Broderick Albumin/Globulin [Mass ratio] 0.9 {ratio} Normal [facility] Comment on above: Performed By: #### H STROPN, CRP, CMP #### Sabzzowflb[address] [place], [place] [address]Dr. Slick Broderick ALP [Catalytic activity/Vol] 98 U/L Normal 46-116 [facility] Comment on above: Performed By: #### H STROPN, CRP, CMP #### Ynjngierjj32[address] [place] [address]Dr. Slick Broderick ALT [Catalytic activity/Vol] 17 U/L Normal 14-59 [facility] Comment on above: Performed By: #### H STROPN, CRP, CMP #### Jfckgobvqv9676 [place] [address]Dr. Slick Broderick Anion gap [Moles/Vol] 4.3 mmol/L Normal [facility] Comment on above: Performed By: #### H STROPN, CRP, CMP #### Plrmindbtw69[address] [place] [address]Dr. Silck Broderick AST [Catalytic activity/Vol] 11 U/L Critically low 15-37 [facility] Comment on above: Performed By: #### H STROPN, CRP, CMP #### Wcsazrvdta[address] [place] [address]Dr. Slick Broderick Bilirubin [Mass/Vol] 0.2 mg/dL Normal 0.2-1.0 [facility] Comment on above: Performed By: #### H STROPN, CRP, CMP #### Cffrpcjqzi0840 [place] [address]Dr. Slick Broderick Calcium [Mass/Vol] 9.6 mg/dL Normal 8.5-10.1 [facility] Comment on above: Performed By: #### H STROPN, CRP, CMP #### Phbubklpjj20[address] [place] [address]Dr. Slick Broderick Chloride [Moles/Vol] 104 mmol/L Normal 98-107 The Comment on above: Performed By: #### H STROPN, CRP, CMP #### Xeggdcfhwe94[address] [place] [address]Dr. Slick Broderick CO2 [Moles/Vol] 32.3 mmol/L Critically high 21.0-32.0 The Comment on above: Performed By: #### H STROPN, CRP, CMP #### Svnluiahsb4381 [place] [address]Dr. Slick Broderick Creatinine [Mass/Vol] 2.49 mg/dL Critically high 0.55-1.02 [facility] Comment on above: Performed By: #### H STROPN, CRP, CMP #### Piinuhpwom36[address] [place] [address]Dr. Slick Broderick EGFR-AF TONGAN 23 mL/min/1.73m2 Critically low >=60 [facility] Comment on above: Performed By: #### H STROPN, CRP, CMP #### Bjolzggqru[address] [place], [place] [address]Dr. Slick Broderick EGFR-NON AF TONGAN 19 mL/min/1.73m2 Critically low >=60 [facility] Comment on above: Performed By: #### H STROPN, CRP, CMP #### Fhmnhlrbti[address] [place], [place] [address]Dr. Slick Broderick Globulin (S) [Mass/Vol] 3.5 g/dL Normal [facility] Comment on above: Performed By: #### H STROPN, CRP, CMP #### Vbreklfmtt[address] [place], [place] [address]Dr. Slick Broderick Glucose [Mass/Vol] 112 mg/dL Critically high 74-106 [facility] Comment on above: Performed By: #### H STROPN, CRP, CMP #### Upedlcanpf[address] [place], [place] [address]Dr. Slick Broderick Potassium [Moles/Vol] 4.6 mmol/L Normal 3.5-5.1 [facility] Comment on above: Performed By: #### H STROPN, CRP, CMP #### Kduhmqzbnh[address] [place], [place] [address]Dr. Slick Broderick Protein [Mass/Vol] 6.6 g/dL Normal 6.4-8.2 [facility] Comment on above: Performed By: #### H STROPN, CRP, CMP #### Rifycbwcru56[address] [place] [address]Dr. Slick Broderick Sodium [Moles/Vol] 136 mmol/L Normal 136-145 [facility] Comment on above: Performed By: #### H STROPN, CRP, CMP #### Ggcimsajyu5960 [place] [id number]. Slick Broderick Urea nitrogen [Mass/Vol] 74.0 mg/dL Critically high 7.0-18.0 [facility] Comment on above: Performed By: #### H STROPN, CRP, CMP #### Vxckhcffud2190 [place] [id number]. Slick Broderick Urea nitrogen/Creatinine [Mass ratio] 29.7 mg/mg Normal The Comment on above: Performed By: #### H STROPN, CRP, CMP #### Qkqtceqhxo36[address] [place] [address]Dr. Slick Broderick [facility] SED RATE 32 mm/hr Critically high <=30 [facility] [place] [facility] Comment on above: Performed By: #### S EDR #### Nqkujifbxn7[address] [place] [address]Dr. Slick Broderick TROPONIN, HIGH SENSITIVITYon 04-21-2022 HSTROP 8.6 pg/mL Normal 4.0-51.3 The Comment on above: Result Comment: CUT- OFF POINTS HAVE BEEN ESTABLISHED BASED ON THE FOURTH UNIVERSAL DEFINITIONS OF MYOCARDIALINFARCTION. THE UPPER REFERENCE LIMIT (URL) OF TROPONIN, DEFINED THE 99TH PERCENTILE OFcTnI DISTRIBUTION IN A REFERENCE POPULATION, HAS BEEN CONFIRMED THE DECISION THRESHOLDFOR [place] DIAGNOSIS. Performed By: #### H STROPN, CRP, CMP #### Fyoqvzhbbu7679 [place] [phone]. Slick Broderick URINE MICROSCOPIC ONLYon BACTERIA TRACE Abnormal NONE SEEN The Comment on above: Performed By: #### E JANIS PLEITEZ #### Wiyqwdisgs0315 [place] [phone]. Slick Broderick Bacteria identified Cx Nom (U) INDICATED Normal The Comment on above: Performed By: #### AMOS PEDROICRO #### Epvajxxowy550[address] [place] [address]Dr. Slick Broderick CAST NONE SEEN Normal NONE SEEN [facility] Comment on above: Performed By: #### Dennise PLEITEZ UMICRO #### Nizujqmgyv27[address] [place] [address]Dr. Slick Broderick Crystals LM Nom (Urine sed) NONE SEEN Normal NONE SEEN The Comment on above: Performed By: #### Dennise PLEITEZ UMICRO #### Hievtlkamx65[address] [place] [address]Dr. Slick Broderick Epithelial cells LM Ql (Urine sed) FEW Abnormal NONE SEEN /RARE The Comment on above: Performed By: #### Dennise PLEITEZ UMICRO #### Vrtwwmfesy[address] [place], [place] [address]Dr. Slick Broderick MUCOUS NONE SEEN Normal NONE SEEN The Comment on above: Performed By: #### Dennise PLEITEZ UMICRO #### Zampebldne[address] [place], [place] [address]Dr. Slick Broderick RBC 0-2 Normal 0-2 [facility] Comment on above: Performed By: #### AMBERLY PEDRORO #### Gklrtrbmuw85[address] [place], [place] [address]Dr. Slick Broderick WBC 5-10 Abnormal NONE SEEN The Comment on above: Performed By: #### AMBERLY PEDRORO #### Xhgbhrjsyf99[address] [place], [place] [address]Dr. Slick Broderick XR CHEST 1 Von 04-21-2022 XR CHEST 1 V Normal The CBC AUTO DIFFon 03-29-2022 BASO # 0.1 103/ul Normal 0.0-0.1 [facility] Comment on above: Performed By: #### C BC #### Xekayarokc029[address] [place], [place] [address]Dr. Slick Broderick Basophils/100 WBC (Bld) 0.7 % Normal 0.2-2.[address] [facility] Comment on above: Performed By: #### C BC #### Dqfmphktla2848 [place] [phone] Slick Broderick EO # 0.4 103/ul Normal 0.0-0.7 [facility] Comment on above: Performed By: #### C BC #### Qnoypvprzj6114 [place] [address]DrEmma Slick Broderick Eosinophils/100 WBC (Bld) 4.8 % Normal 0.9-7.0 [facility] Comment on above: Performed By: #### C BC #### Adqxacpmrc0980 [place] [address]Dr. Slick Broderick Erythrocyte distribution width (RBC) [Ratio] 13.9 % Normal 11.0-15.0 [facility] Comment on above: Performed By: #### C BC #### Ouihcrxkxw97[address] [place], [place] [address]Dr. Slick Broderick Hematocrit (Bld) [Volume fraction] 28.0 % Critically low 36.0-48.0 [facility] Comment on above: Performed By: #### C BC #### Rsqbzxldkn8769[address] [place], [place] [address]Dr. Slick Broderick Hemoglobin (Bld) [Mass/Vol] 8.8 g/dL Critically low 12.0-16.0 [facility] Comment on above: Performed By: #### C BC #### Bsgfrblfxc[address] [place], [place] [address]Dr. Slick Broderick IG # 0.05 10e3/ul Critically high 0.00-0.03 [facility] Comment on above: Performed By: #### C BC #### Qcwxkznfhc028[address] [place], [place] [address]Dr. Meaganwendie Broderick IG % 0.7 % Critically high 0.0-0.5 [facility] Comment on above: Performed By: #### C BC #### Pohojgoete[address] [place], [place] [address]DrEmma Broderick LYMPH # 1.0 103/ul Critically low 1.2-3.8 [facility] Comment on above: Performed By: #### C BC #### Snqlwqdapv6078 [place] [address]Dr. Slick Broderick Lymphocytes/100 WBC (Bld) 13.0 % Critically low 20.5-60.0 [facility] Comment on above: Performed By: #### C BC #### Ctlowjahvm3727 [place] [address]Dr. Slick Broderick MANUAL DIFF REQ NO Normal [facility] Comment on above: Performed By: #### C BC #### Toszdrpbkl8298 [place] [address]Dr. Slick Broderick MCH (RBC) [Entitic mass] 28.9 pg Normal 26.7-34.0 [facility] Comment on above: Performed By: #### C BC #### Wnplgvhvvb[address] [place], [place] [address]Dr. Slick Broderick MCHC (RBC) [Mass/Vol] 31.4 g/dL Normal 29.9-35.2 [facility] Comment on above: Performed By: #### C BC #### Mwuormvbgw1134[address] [place], [place] [address]Dr. Slick Broderick MCV (RBC) [Entitic vol] 92.1 fL Normal 81.0-99.0 [facility] Comment on above: Performed By: #### C BC #### Xeqjijdghu928[address] [place], [place] [address]Dr. Slick Broderick MONO # 0.8 103/ul Normal 0.3-0.8 [facility] Comment on above: Performed By: #### C BC #### Vbgoiahcql139[address] [place], [place] [address]Dr. Slick Broderick Monocytes/100 WBC (Bld) 10.7 % Normal 1.7-12.0 [facility] Comment on above: Performed By: #### C BC #### Hqnuyiuhyf8636[address] [place], [place] [address]Dr. Slick Broderick NEUT # 5.4 103/ul Normal 1.4-6.5 [facility] Comment on above: Performed By: #### C BC #### Hlppywxnry24[address] [place] [address]Dr. Meaganwendie Davie Neutrophils/100 WBC (Bld) 70.1 % Normal 43.0-75.0 [facility] Comment on above: Performed By: #### C BC #### Xcomgovnub4023 [place] [address]Dr. Slick Broderick Platelet mean volume (Bld) [Entitic vol] 8.9 fL Critically low 9.5-13.5 [facility] Comment on above: Performed By: #### C BC #### Wwwrhmxkhm144[address] [place], [place] [address]Dr. Slick Broderick PLT 221 103/ul Normal 150-450 The Comment on above: Performed By: #### C BC #### Famnqouqbl794[address] [place], [place] [address]Dr. Slick Broderick RBC 3.04 106/ul Critically low 4.20-5.40 [facility] Comment on above: Performed By: #### C BC #### Vryhbgzmtb112[address] [place], [place] [address]Dr. Slick Broderick WBC 7.7 103/ul Normal 4.0-11.0 The Comment on above: Performed By: #### C BC #### Lhvgnicigh[address] [place], [place] [address]Dr. Slick Broderick PRBC LEUKOREDUCEDon 03-29-20 PRBC LEUKOREDUCED Cross Match Result Compatible Unit Blood Type O Pos Unit Number [id number] Status Information Transfused Product ID Red Blood Cells Product Code [id number] Normal [facility] Comment on above: Performed By: #### P RBC #### Qhrxkojyvg54[address] [place] [address]Dr. Slick Broderick PROF CHEM 8 (BAS METB)on Anion gap [Moles/Vol] 9.6 mmol/L Normal [facility] Comment on above: Performed By: #### B MP #### Adbbabcjmi9191 [place] [phone]. Slick Broderick Calcium [Mass/Vol] 9.4 mg/dL Normal 8.5-10.1 [facility] Comment on above: Performed By: #### B MP #### Ixqsmptiwh0900 [place] [phone]. Slick Broderick Chloride [Moles/Vol] 101 mmol/L Normal 98-107 The Comment on above: Performed By: #### B MP #### Qgxfljowba7[address] [place], [place] [address]Dr. Slick Broderick CO2 [Moles/Vol] 28.3 mmol/L Normal 21.0-32.0 [facility] Comment on above: Performed By: #### B MP #### Nhvkrokynz9[address] [place], [place] [address]Dr. Slick Broderick Creatinine [Mass/Vol] 1.56 mg/dL Critically high 0.55-1.02 [facility] Comment on above: Performed By: #### B MP #### Yrjujbnnfc[address] [place], [place] [address]Dr. Slick Broderick EGFR-AF TONGAN 39 mL/min/1.73m2 Critically low >=60 The Comment on above: Performed By: #### B MP #### Kekadfrlaw168[address] [place], [place] [address]Dr. Slick Broderick EGFR-NON AF TONGAN 33 mL/min/1.73m2 Critically low >=60 The Comment on above: Performed By: #### B MP #### Soorjxqoyd974[address] [place], [place] [address]Dr. Slick Broderick Glucose [Mass/Vol] 88 mg/dL Normal 74-106 [facility] Comment on above: Performed By: #### B MP #### Lumqmpyaui[address] [place], [place] [address]Dr. Slick Broderick Potassium [Moles/Vol] 4.9 mmol/L Normal 3.5-5.1 The Comment on above: Performed By: #### B MP #### Nrwtflmayt7765 [place] [phone]. Slick Broderick Sodium [Moles/Vol] 134 mmol/L Critically low 136-145 [facility] Comment on above: Performed By: #### B MP #### Yitgkarbun[address] [place], [place] [id number]. Slick Broderick Urea nitrogen [Mass/Vol] 50.0 mg/dL Critically high 7.0-18.0 [facility] Comment on above: Performed By: #### B MP #### Qxrmlihlbl0565[address] [place], [place] [address]Dr. Slick Davie Urea nitrogen/Creatinine [Mass ratio] 32.1 mg/mg Normal [facility] Comment on above: Performed By: #### B MP #### Ociswrsory[address] [place], [place] [address]Dr. Slick Davie CBC AUTO DIFFon 03-28-2022 BASO # 0.1 103/ul Normal 0.0-0.1 [facility] Comment on above: Performed By: #### C BC #### Bejtytktbk[address] [place], [place] [address]Dr. Slick Davie Basophils/100 WBC (Bld) 0.7 % Normal 0.2-2.0 [facility] Comment on above: Performed By: #### C BC #### Daedsyyhtd[address] [place], [place] [address]Dr. Slick Davie EO # 0.4 103/ul Normal 0.0-0.7 [facility] Comment on above: Performed By: #### C BC #### Keqntiwxqn8200[address] [place], [place] [address]Dr. Slick Davie Eosinophils/100 WBC (Bld) 5.5 % Normal 0.9-7.0 [facility] Comment on above: Performed By: #### C BC #### Lbwqpgddye886[address] [place], [place] [address]Dr. Slick Davie Erythrocyte distribution width (RBC) [Ratio] 13.6 % Normal 11.0-15.0 [facility] Comment on above: Performed By: #### C BC #### Tzhjvlvqrs7366 [place] [address]DrEmma Slick Broderick Hematocrit (Bld) [Volume fraction] 27.9 % Critically low 36.0-48.0 [facility] Comment on above: Performed By: #### C BC #### Fatzbltyqb9879 [place] [address]DrEmma Rhodeswendie Davie Hemoglobin (Bld) [Mass/Vol] 9.0 g/dL Critically low 12.0-16.0 [facility] Comment on above: Performed By: #### C BC #### Rpkeywqymx9813[address] [place], [place] [address]DrEmma Broderick IG # 0.02 10e3/ul Normal 0.00-0.03 [facility] Comment on above: Performed By: #### C BC #### Ejewbpqeme160[address] [place], [place] [address]DrEmma Broderick IG % 0.3 % Normal 0.0-0.5 [facility] Comment on above: Performed By: #### C BC #### Ynjuwuiauv[address] [place], [place] [address]DrEmma Broderick LYMPH # 0.9 103/ul Critically low 1.2-3.8 [facility] Comment on above: Performed By: #### C BC #### Yifvtnobjk[address] [place], [place] [address]DrEmma Broderick Lymphocytes/100 WBC (Bld) 13.0 % Critically low 20.5-60.0 [facility] Comment on above: Performed By: #### C BC #### Hkztodvgkj8926[address] [place], [place] [address]DrEmma Broderick MANUAL DIFF REQ NO Normal [facility] Comment on above: Performed By: #### C BC #### Zphexhcicc154[address] [place], [place] [address]DrEmma Broderick MCH (RBC) [Entitic mass] 29.6 pg Normal 26.7-34.0 [facility] Comment on above: Performed By: #### C BC #### Lxfemuzsbh7900 [place] [phone]. Slick Davie MCHC (RBC) [Mass/Vol] 32.3 g/dL Normal 29.9-35.2 [facility] Comment on above: Performed By: #### C BC #### Cimwskttxq4619 [place] [phone]. Slick Broderick MCV (RBC) [Entitic vol] 91.8 fL Normal 81.0-99.0 [facility] Comment on above: Performed By: #### C BC #### Xczjrmwekx6764[address] [place], [place] [address]Dr. Slick Broderick MONO # 0.7 103/ul Normal 0.3-0.8 [facility] Comment on above: Performed By: #### C BC #### Ixtttudxku0736[address] [place], [place] [address]Dr. Slick Broderick Monocytes/100 WBC (Bld) 11.1 % Normal 1.7-12.0 [facility] Comment on above: Performed By: #### C BC #### Swgvseqczc30[address] [place], [place] [address]Dr. Slick Broderick NEUT # 4.6 103/ul Normal 1.4-6.5 [facility] Comment on above: Performed By: #### C BC #### Eajuvuiglg7095[address] [place], [place] [address]Dr. Slick Broderick Neutrophils/100 WBC (Bld) 69.4 % Normal 43.0-75.0 [facility] Comment on above: Performed By: #### C BC #### Ztjhejhdin059[address] [place], [place] [address]DrEmma Broderick Platelet mean volume (Bld) [Entitic vol] 8.9 fL Critically low 9.5-13.5 [facility] Comment on above: Performed By: #### C BC #### Fypxhgzjrx497[address] [place], [place] [address]Dr. Slick Broderick PLT 216 103/ul Normal 150-450 The Comment on above: Performed By: #### C BC #### Qetxthgojr0113 [place] [id number]. Slick Davie RBC 3.04 106/ul Critically low 4.20-5.40 [facility] Comment on above: Performed By: #### C BC #### Pnobgvuvzx3497 [place] [phone]. Slick Davie WBC 6.7 103/ul Normal 4.0-11.0 The Comment on above: Performed By: #### C BC #### Oyybdsfzwl3840 [place] [phone]. Slick Broderick BASO # 0.0 103/ul Normal 0.0-0.1 The Comment on above: Performed By: #### C BC #### Xfudodhreo7417 [place] [phone]. Slick Broderick Basophils/100 WBC (Bld) 0.5 % Normal 0.2-2.0 [facility] Comment on above: Performed By: #### C BC #### Skdvxhqmxl5157 [place] [id number]. Slick Davie EO # 0.4 103/ul Normal 0.0-0.7 [facility] Comment on above: Performed By: #### C BC #### Eklhxverko8962 [place] [id number]. Slick Broderick Eosinophils/100 WBC (Bld) 5.3 % Normal 0.9-7.0 The Comment on above: Performed By: #### C BC #### Dnmxwsginj2840 [place] [id number]. Meaganwendie Broderick Erythrocyte distribution width (RBC) [Ratio] 12.9 % Normal 11.0-15.0 [facility] Comment on above: Performed By: #### C BC #### Atfppbqtqd0785 [place] [phone]. Slick Broderick Hematocrit (Bld) [Volume fraction] 23.9 % Critically low 36.0-48.0 The Comment on above: Performed By: #### C BC #### Aabeklgaqq9297 [place] [address]Dr. Slick Broderick Hemoglobin (Bld) [Mass/Vol] 7.7 g/dL Critically low 12.0-16.0 [facility] Comment on above: Performed By: #### C BC #### Bskzccreco2333 [place] [address]Dr. Slick Broderick IG # 0.04 10e3/ul Critically high 0.00-0.03 [facility] Comment on above: Performed By: #### C BC #### Ttqlqosszh2107 [place] [address]Dr. Slick Broderick IG % 0.5 % Normal 0.0-0.5 [facility] Comment on above: Performed By: #### C BC #### Dqxsuiihhh5371 [place] [address]Dr. Slick Broderick LYMPH # 0.9 103/ul Critically low 1.2-3.8 [facility] Comment on above: Performed By: #### C BC #### Pynzvnffcv7004 [place] [address]Dr. Slick Broderick Lymphocytes/100 WBC (Bld) 11.7 % Critically low 20.5-60.0 [facility] Comment on above: Performed By: #### C BC #### Rpncupgrcp7535 [place] [address]Dr. Slick Broderick MANUAL DIFF REQ NO Normal [facility] Comment on above: Performed By: #### C BC #### Fivdrnjcmv9971 [place] [address]Dr. Slick Broderick MCH (RBC) [Entitic mass] 30.1 pg Normal 26.7-34.0 The Comment on above: Performed By: #### C BC #### Julxdczdzl5047 [place] [address]Dr. Slick Broderick MCHC (RBC) [Mass/Vol] 32.2 g/dL Normal 29.9-35.2 The Comment on above: Performed By: #### C BC #### Asbqpwvmor2099 [place] [id number]. Slick Broderick MCV (RBC) [Entitic vol] 93.4 fL Normal 81.0-99.0 [facility] Comment on above: Performed By: #### C BC #### Barrcciikv3615 [place] [id number]. Slick Broderick MONO # 0.9 103/ul Critically high 0.3-0.8 [facility] Comment on above: Performed By: #### C BC #### Ivtklwhlcz5635 [place] [address]Dr. Slick Broderick Monocytes/100 WBC (Bld) 12.0 % Normal 1.7-12.0 [facility] Comment on above: Performed By: #### C BC #### Cbnslpqdnt[address] [place], [place] [address]Dr. Slick Broderick NEUT # 5.4 103/ul Normal 1.4-6.5 [facility] Comment on above: Performed By: #### C BC #### Ntedsbnxha[address] [place], [place] [address]Dr. Slick Davie Neutrophils/100 WBC (Bld) 70.0 % Normal 43.0-75.0 [facility] Comment on above: Performed By: #### C BC #### Yblammkgnf3080 [place] [address]Dr. Slick Davie Platelet mean volume (Bld) [Entitic vol] 9.0 fL Critically low 9.5-13.5 [facility] Comment on above: Performed By: #### C BC #### Pacmfmvcuf87[address] [place], [place] [address]Dr. Slick Davie PLT 210 103/ul Normal 150-450 The Comment on above: Performed By: #### C BC #### Pyprgeprij0743 [place] [id number]. Slick Broderick RBC 2.56 106/ul Critically low 4.20-5.40 [facility] Comment on above: Performed By: #### C BC #### Pzgyxaoenv0606 [place], [place] [address]Jl. Slick Broderick WBC 7.7 103/ul Normal 4.0-11.0 The Comment on above: Performed By: #### C BC #### Hffaacqnrk2503 [place], [place] [address]Ez. Slick Broderick CULTURE URINEon 03-28-2022 CULTURE URINE Culture Observations: NO GROWTH. Normal The Comment on above: Performed By: #### U RCX #### Wodphcojgf6051 [place], [place] [address]Zk. Slick Broderick Covid-19 PCR (CVDTB)on 03-12 SARS-CoV-2 (COVID-19) RNA DONNIE+probe Ql (Unsp spec) Not detected Normal NOT DETECTED The Comment on above: Result Comment: When diagnostic [...] for this test is supported by the Operation Agent of Health and Human Service's declaration that [...] be used). Performed By: #### C VDTBH #### Thtqgtqkfr8241 [place], [place] [address]Iz. Slick Broderick IRONon 03-28-2022 Iron [Mass/Vol] 32.0 ug/dL Critically low 50.0-170.0 [facility] Comment on above: Performed By: #### I YUNIOR #### Etrfmtjvgw1688 [place] [address]Dr. Slick Broderick POINT OF CARE GLUCOSEon 03-12 Glucose [Mass/Vol] 119 mg/dL Critically high 74-106 [facility] Comment on above: Performed By: #### P OCGLUC #### Guhrsjnhha0870 [place] [address]Dr. Slick Broderick Glucose [Mass/Vol] 178 mg/dL Critically high 74-106 [facility] Comment on above: Performed By: #### P OCGLUC #### Fxnpxscqbk4068 [place] [address]Dr. Slick Broderick Glucose [Mass/Vol] 106 mg/dL Normal 74-106 [facility] Comment on above: Performed By: #### P OCGLUC #### Whylhvmioa3378 [place] [address]Dr. Slick Broderick PROF CHEM 8 (BAS METB)on Anion gap [Moles/Vol] 9.5 mmol/L Normal [facility] Comment on above: Performed By: #### B MP #### Pteyekokjy[address] [place], [place] [address]Dr. Slick Broderick Calcium [Mass/Vol] 9.5 mg/dL Normal 8.5-10.1 [facility] Comment on above: Performed By: #### B MP #### Bpfojdvbcy[address] [place], [place] [address]Dr. Slick Broderick Chloride [Moles/Vol] 98 mmol/L Normal 98-107 [facility] Comment on above: Performed By: #### B MP #### Crqvzqnjud[address] [place], [place] [address]Dr. Slick Broderick CO2 [Moles/Vol] 28.5 mmol/L Normal 21.0-32.0 [facility] Comment on above: Performed By: #### B MP #### Pzctofscpy7983 [place] [address]Dr. Slick Broderick Creatinine [Mass/Vol] 1.90 mg/dL Critically high 0.55-1.02 [facility] Comment on above: Performed By: #### B MP #### Vbrclchsib0279 [place] [id number]. Meaganwendie Davie EGFR-AF TONGAN 31 mL/min/1.73m2 Critically low >=60 [facility] Comment on above: Performed By: #### B MP #### Cwpiaggndu9820 [place] [place] [id number]. Slick Dvaie EGFR-NON AF TONGAN 26 mL/min/1.73m2 Critically low >=60 [facility] Comment on above: Performed By: #### B MP #### Inxbnaczwt9337 [place] [id number]. Slick Broderick Glucose [Mass/Vol] 102 mg/dL Normal 74-106 [facility] Comment on above: Performed By: #### B MP #### Kdrghsyrci1850 [place] [address]Dr. Slick Broderick Potassium [Moles/Vol] 4.0 mmol/L Normal 3.5-5.1 [facility] Comment on above: Performed By: #### B MP #### Eutnggfawr9810 [place] [address]Dr. Slick Broderick Sodium [Moles/Vol] 132 mmol/L Critically low 136-145 [facility] Comment on above: Performed By: #### B MP #### Kxcmxrfixa3318 [place] [address]Dr. Slick Broderick Urea nitrogen [Mass/Vol] 56.0 mg/dL Critically high 7.0-18.0 [facility] Comment on above: Performed By: #### B MP #### Vqyjxfuamo8379 [place] [phone]. Slick Broderick Urea nitrogen/Creatinine [Mass ratio] 29.5 mg/mg Normal [facility] Comment on above: Performed By: #### B MP #### Grfxbgajuv5573 [place] [address]Dr. Slick Broderick T4on 03-28-2022 T4 [Mass/Vol] 4.90 ug/dL Normal 4.80-13.90 [facility] Comment on above: Performed By: #### T 4 #### Wurxflkhlh756[address] [place], [place] [address]Dr. Slick Broderick TSHon 03-28-2022 TSH 2.765 uIU/mL Normal 0.358-3.740 [facility] Comment on above: Performed By: #### T SH #### Zaxfylpsny142[address] [place], [place] [address]Dr. Slick Broderick TYPE AND SCREENon 03-28-2022 TYPE AND SCREEN Negative Normal [facility] Comment on above: Performed By: #### T NS #### Wtnbnnpcnw25[address] [place], [place] [address]Dr. Slick Broderick UA RANDOM W/MICROSCOPICon BACTERIA NONE SEEN Normal NONE SEEN [facility] Comment on above: Performed By: #### U AMIC #### Qmmsumukcu842[address] [place], [place] [address]Dr. Slick Broderick Bilirubin Ql (U) Negative Normal NEGATIVE [facility] Comment on above: Performed By: #### U AMIC #### Drxdjwsvtl986454 [address] [place], [place] [address]Dr. Slick Broderick CAST NONE SEEN Normal NONE SEEN [facility] Comment on above: Performed By: #### U AMIC #### Vmyozeebqy535[address] [place], [place] [address]Dr. Slick Broderick Clarity (U) CLEAR Normal CLEAR The Comment on above: Performed By: #### U AMIC #### Sexycknydf038[address] [place], [place] [address]Dr. Slick Broderick Color (U) LT. YELLOW Normal YELLOW The Comment on above: Performed By: #### U AMIC #### Cpewzsrsmw937[address] [place], [place] [address]Dr. lSick Broderick Crystals LM Nom (Urine sed) NONE SEEN Normal NONE SEEN [facility] Comment on above: Performed By: #### U AMIC #### Yuclrxslsk3375 [place] [address]Dr. Slick Broderick Epithelial cells LM Ql (Urine sed) FEW Abnormal NONE SEEN /RARE The Comment on above: Performed By: #### U AMIC #### Mkeujgxirc230[address] [place], [place] [address]Dr. Slick Broderick Glucose Ql (U) Negative Normal NEGATIVE [facility] Comment on above: Performed By: #### U AMIC #### Pxsjapuoff2813[address] [place], [place] [address]Dr. Slick Broderick Hemoglobin Ql (U) MODERATE Abnormal NEGATIVE [facility] Comment on above: Performed By: #### U AMIC #### Gbogrpuupj6600[address] [place], [place] [address]Dr. Slick Broderick Ketones Ql (U) Negative Normal NEGATIVE [facility] Comment on above: Performed By: #### U AMIC #### Odqxxwrmti850[address] [place], [place] [address]Dr. Slick Broderick LEUKOCYTES TRACE Abnormal NEGATIVE The Comment on above: Performed By: #### U AMIC #### Rhhhrvlfhi2[address] [place], [place] [address]Dr. Slick Broderick MUCOUS NONE SEEN Normal NONE SEEN The Comment on above: Performed By: #### U AMIC #### Ennptxvtug1250[address] [place], [place] [address]Dr. Slick Broderick Nitrite Ql (U) Negative Normal NEGATIVE [facility] Comment on above: Performed By: #### U AMIC #### Mpersaxxap1840[address] [place], [place] [address]Dr. Slick Broderick pH (U) 6.0 [pH] Normal 5-9 The Comment on above: Performed By: #### U AMIC #### Woyyxndunt557[address] [place], [place] [address]Dr. Slick Broderick RBC 5-10 Abnormal 0-2 The Comment on above: Performed By: #### U AMIC #### Qkdoevsact182[address] [place], [place] [address]DrEmma Broderick SPEC GRAVITY <=1.005 Abnormal 1.005-<=1.0 25 [facility] Comment on above: Performed By: #### U AMIC #### Klimyjmxxz0711[address] [place], [place] [address]DrEmma Broderick UA PROTEIN Negative Normal NEGATIVE/ TRACE The Comment on above: Performed By: #### U AMIC #### Nshfeihbgf7033 [place] [address]Dr. Slick Broderick Urobilinogen Qn (U) 0.2 {Hiren'U}/dL Normal 0.2 - 1. 0 The Comment on above: Performed By: #### U AMIC #### Tigszjfkuc187[address] [place], [place] [address]DrEmma Broderick WBC 2-5 Abnormal NONE SEEN The Comment on above: Performed By: #### U AMIC #### Vyjoczkoec678[address] [place], [place] [address]DrEmma Broderick CBC AUTO DIFFon 03-27-2022 BASO # 0.0 103/ul Normal 0.0-0.1 [facility] Comment on above: Performed By: #### C BC #### Uuyjqolokg278[address] [place], [place] [address]DrEmma Broderick Basophils/100 WBC (Bld) 0.5 % Normal 0.2-2.0 [facility] Comment on above: Performed By: #### C BC #### Faslnewlns286[address] [place], [place] [address]DrEmma Broderick EO # 0.4 103/ul Normal 0.0-0.7 [facility] Comment on above: Performed By: #### C BC #### Lrwgxxxcwv397[address] [place], [place] [address]DrEmma Broderick Eosinophils/100 WBC (Bld) 5.2 % Normal 0.9-7.0 [facility] Comment on above: Performed By: #### C BC #### Vejlfjdqcr0613[address] [place], [place] [address]DrEmma Broderick Erythrocyte distribution width (RBC) [Ratio] 13.1 % Normal 11.0-15.0 The Comment on above: Performed By: #### C BC #### Gcejrdtngy9121 [place] [address]Dr. Slick Broderick Hematocrit (Bld) [Volume fraction] 24.7 % Critically low 36.0-48.0 The Comment on above: Performed By: #### C BC #### Kycdfswtow939[address] [place], [place] [address]Dr. Meaganwendie Broderick Hemoglobin (Bld) [Mass/Vol] 7.9 g/dL Critically low 12.0-16.0 The Comment on above: Performed By: #### C BC #### Bvmcnmaogs3813 [place] [address]Dr. Slick Broderick IG # 0.06 10e3/ul Critically high 0.00-0.03 [facility] Comment on above: Performed By: #### C BC #### Brqazyrout812[address] [place], [place] [address]Dr. Slick Broderick IG % 0.8 % Critically high 0.0-0.5 [facility] Comment on above: Performed By: #### C BC #### Qqqcnzrtdz836[address] [place], [place] [address]DrEmma Broderick LYMPH # 0.9 103/ul Critically low 1.2-3.8 [facility] Comment on above: Performed By: #### C BC #### Dnnsgayluo732[address] [place], [place] [address]DrEmma Broderick Lymphocytes/100 WBC (Bld) 11.1 % Critically low 20.5-60.0 The Comment on above: Performed By: #### C BC #### Xgbdidipeq277[address] [place], [place] [address]DrEmma Broderick MANUAL DIFF REQ NO Normal [facility] Comment on above: Performed By: #### C BC #### Qtogdpgxgc065[address] [place], [place] [address]DrEmma Broderick MCH (RBC) [Entitic mass] 29.7 pg Normal 26.7-34.0 [facility] Comment on above: Performed By: #### C BC #### Fitnluimpm7210 [place] [id number]. Slick Broderick MCHC (RBC) [Mass/Vol] 32.0 g/dL Normal 29.9-35.2 [facility] Comment on above: Performed By: #### C BC #### Mroswwxtey7611 [place] [address]Dr. Slick Broderick MCV (RBC) [Entitic vol] 92.9 fL Normal 81.0-99.0 [facility] Comment on above: Performed By: #### C BC #### Vljswmeeif1322 [place] [address]Dr. Slick Broderick MONO # 0.8 103/ul Normal 0.3-0.8 [facility] Comment on above: Performed By: #### C BC #### Nsfztnjvgp840[address] [place], [place] [address]Dr. Slick Broderick Monocytes/100 WBC (Bld) 9.5 % Normal 1.7-12.0 [facility] Comment on above: Performed By: #### C BC #### Friygtatjm3695[address] [place], [place] [address]Dr. Slick Broderick NEUT # 5.8 103/ul Normal 1.4-6.5 [facility] Comment on above: Performed By: #### C BC #### Ytpxtujjhx4510[address] [place], [place] [address]DrEmma Slick Davie Neutrophils/100 WBC (Bld) 72.9 % Normal 43.0-75.0 The Comment on above: Performed By: #### C BC #### Dygvmgjhsn428[address] [place], [place] [address]Dr. Slick Broderick Platelet mean volume (Bld) [Entitic vol] 8.9 fL Critically low 9.5-13.5 [facility] Comment on above: Performed By: #### C BC #### Wqyxbfpevv5293 [place] [id number]. Slick Broderick PLT 220 103/ul Normal 150-450 The Comment on above: Performed By: #### C BC #### Telpmnwosv5502 [place] [phone]. Slick Broderick RBC 2.66 106/ul Critically low 4.20-5.40 [facility] Comment on above: Performed By: #### C BC #### Rbsmwyghpj9259 [place] [phone]. Slick Broderick WBC 7.9 103/ul Normal 4.0-11.0 [facility] Comment on above: Performed By: #### C BC #### Fdjuugwqze4309 [place] [address]Dr. Slick Broderick OCC BLD IMMUNO SCREENon 03-12 OCCULT BLOOD Positive Abnormal NEGATIVE [facility] Comment on above: Performed By: #### O BSCRN #### Dijqxftzng5103 [place] [address]Dr. Meaganwendie Broderick PROF 14(COMP METB)on 022 Albumin [Mass/Vol] 3.2 g/dL Critically low 3.4-5.0 [facility] Comment on above: Performed By: #### C MP #### Stxtmicnue3473 [place] [id number]. Slick Broderick Albumin/Globulin [Mass ratio] 0.9 {ratio} Normal [facility] Comment on above: Performed By: #### C MP #### Chgukfudnr4394 [place] [phone]. Meaganwendie Broderick ALP [Catalytic activity/Vol] 101 U/L Normal 46-116 The Comment on above: Performed By: #### C MP #### Dcfeynyrkd6649 [place] [address]Dr. Slick Broderick ALT [Catalytic activity/Vol] 28 U/L Normal 14-59 [facility] Comment on above: Performed By: #### C MP #### Wpugykfqne6229 [place] [address]Dr. Slick Broderick Anion gap [Moles/Vol] 11.5 mmol/L Normal [facility] Comment on above: Performed By: #### C MP #### Msifdzdlfw0620[address] [place], [place] [address]Dr. Slick Broderick AST [Catalytic activity/Vol] 21 U/L Normal 15-37 [facility] Comment on above: Performed By: #### C MP #### Frpwopclwq213254 [address] [place], [place] [address]Dr. Slick Broderick Bilirubin [Mass/Vol] 0.2 mg/dL Normal 0.2-1.0 [facility] Comment on above: Performed By: #### C MP #### Zpkyyoebtv3635[address] [place], [place] [address]Dr. Slick Broderick Calcium [Mass/Vol] 9.3 mg/dL Normal 8.5-10.1 [facility] Comment on above: Performed By: #### C MP #### Dkmtlsqmca480[address] [place], [place] [address]Dr. Meaganwendie Broderick Chloride [Moles/Vol] 93 mmol/L Critically low 98-107 The Comment on above: Performed By: #### C MP #### Rkcmjtqeah937[address] [place], [place] [address]Dr. Slick Davie CO2 [Moles/Vol] 27.3 mmol/L Normal 21.0-32.0 [facility] Comment on above: Performed By: #### C MP #### Jkyaelowdu3411[address] [place], [place] [address]Dr. Slick Davie Creatinine [Mass/Vol] 1.98 mg/dL Critically high 0.55-1.02 The Comment on above: Performed By: #### C MP #### Kzqrwtmevq275[address] [place], [place] [address]Dr. Slick Davie EGFR-AF TONGAN 30 mL/min/1.73m2 Critically low >=60 The Comment on above: Performed By: #### C MP #### Krlpxyvfjk1564 [place] [address]Dr. Slick Broderick EGFR-NON AF TONGAN 25 mL/min/1.73m2 Critically low >=60 [facility] Comment on above: Performed By: #### C MP #### Xgqcecbtej0303 [place] [address]Dr. Slick Broderick Globulin (S) [Mass/Vol] 3.6 g/dL Normal [facility] Comment on above: Performed By: #### C MP #### Vhxigniclh034[address] [place], [place] [address]Dr. Slick Broderick Glucose [Mass/Vol] 123 mg/dL Critically high 74-106 [facility] Comment on above: Performed By: #### C MP #### Ywykjgzeob7065[address] [place], [place] [address]Dr. Slick Broderick Potassium [Moles/Vol] 3.8 mmol/L Normal 3.5-5.1 [facility] Comment on above: Performed By: #### C MP #### Scjnkchwkv1769[address] [place], [place] [address]Dr. Slick Broderick Protein [Mass/Vol] 6.8 g/dL Normal 6.4-8.2 [facility] Comment on above: Performed By: #### C MP #### Cfxxngsyin827[address] [place], [place] [address]Dr. Slick Broderick Sodium [Moles/Vol] 128 mmol/L Critically low 136-145 [facility] Comment on above: Performed By: #### C MP #### Wudeuqvxtv2680[address] [place], [place] [address]Dr. Slick Broderick Urea nitrogen [Mass/Vol] 64.0 mg/dL Critically high 7.0-18.0 [facility] Comment on above: Performed By: #### C MP #### Jqhosethwb798[address] [place], [place] [address]Dr. Slick Broderick Urea nitrogen/Creatinine [Mass ratio] 32.3 mg/mg Normal [facility] Comment on above: Performed By: #### C MP #### Vsiplnmnxh[address] [place] [id number]. Slick Broderick TROPONIN, HIGH SENSITIVITYon 03-27-2022 HSTROP 9.0 pg/mL Normal 4.0-51.3 The Comment on above: Result Comment: CUT- OFF POINTS HAVE BEEN ESTABLISHED BASED ON THE FOURTH UNIVERSAL DEFINITIONS OF MYOCARDIALINFARCTION. THE UPPER REFERENCE LIMIT (URL) OF TROPONIN, DEFINED THE 99TH PERCENTILE OFcTnI DISTRIBUTION IN A REFERENCE POPULATION, HAS BEEN CONFIRMED THE DECISION THRESHOLDFOR [place] DIAGNOSIS. Performed By: #### H STROPN #### Nfaexnzjpw2164 [place], [place] [address]So. Slick Broderick Progress Noteson 03-24-2022 [employer] Authentication Interface Message Text 1:32 AM EMERGENCY TRIAGE, TREAT AND TRANSPORT (ET3) DOCUMENTATION OF TELEHEALTH VISIT Date / Time: 03/24/2022 / 1:32 AM Name: Linda Nascimento : 1950 SSN: [id number] EMS Agency: [facility] [] Verbal consent obtained [x] [...] Completed by: Chidi Conte MD Normal [facility] T4, T3U, FTI LABCORPon 02-12 Free Thyroxine Index 2.3 Normal 1.2-4.9 The Comment on above: Performed By: #### T HYLC #### Zueknzxtmj7375 [place] [id number]. Slick Broderick T3 Uptake 31 % Normal 24-39 The Comment on above: Performed By: #### T HYLC #### Rrbvajqxie4277 [place] [id number]. Meaganwendie Broderick T4 [Mass/Vol] 7.4 ug/dL Normal 4.5-12.0 [facility] Comment on above: Performed By: #### T HYLC #### Pyqrvgvgzz8825 [place] [id number]. Slick Broderick VIT D 25-OH LABCORPon 2021 Vitamin D, 25-Hydroxy 58.7 ng/mL Normal 30.0-100.0 The Comment on above: Result Comment: Karla min D deficiency has been defined by the [place] ofMedicine and an Endocrine Society practice guideline as alevel of serum 25-OH vitamin D less than 20 ng/mL (1,2).The Endocrine Society went on to further define vitamin Dinsufficiency as a level between 21 and 29 ng/mL (2).1. IOM ([place] of [employer]). 2010. Dietary reference intakes for calcium and D. [place]: The National Academies Press.2. Maryam MF, [place], Ángela SCHAEFER, et al. Evaluation, treatment, and prevention of vitamin D deficiency: an Endocrine Society clinical practice guideline. JCEM. 2010; 96(7):1911-30. Performed By: #### V ITADLC #### Jrenccujxz3462 [place] [id number]. Meaganwendie Broderick CBC AUTO DIFFon 02-11-2022 BASO # 0.0 103/ul Normal 0.0-0.1 [facility] Comment on above: Performed By: #### C BC #### Bbswcuigvd1855[address] [place], [place] [address]Dr. Slick Broderick Basophils/100 WBC (Bld) 0.6 % Normal 0.2-2.0 [facility] Comment on above: Performed By: #### C BC #### Zdydmzdwdp304[address] [place], [place] [address]Dr. Meaganwendie Broderick EO # 0.3 103/ul Normal 0.0-0.7 [facility] Comment on above: Performed By: #### C BC #### Zlatmwlywf337[address] [place], [place] [address]Dr. Slick Broderick Eosinophils/100 WBC (Bld) 4.6 % Normal 0.9-7.0 [facility] Comment on above: Performed By: #### C BC #### Bttnnjpang5427[address] [place], [place] [address]Dr. Slick Broderick Erythrocyte distribution width (RBC) [Ratio] 14.0 % Normal 11.0-15.0 [facility] Comment on above: Performed By: #### C BC #### Ysqxdlevio17[address] [place], [place] [address]Dr. Slick Broderick Hematocrit (Bld) [Volume fraction] 28.4 % Critically low 36.0-48.0 [facility] Comment on above: Performed By: #### C BC #### Hmxmjpjrwk827[address] [place], [place] [address]Dr. Slick Broderick Hemoglobin (Bld) [Mass/Vol] 9.3 g/dL Critically low 12.0-16.0 [facility] Comment on above: Performed By: #### C BC #### Xbnwzdwkev808[address] [place], [place] [address]Dr. Slick Broderick IG # 0.03 10e3/ul Normal 0.00-0.03 [facility] Comment on above: Performed By: #### C BC #### Desgrjyoga7942 [place] [address]Dr. Slick Broderick IG % 0.5 % Normal 0.0-0.5 [facility] Comment on above: Performed By: #### C BC #### Whuciyvstr3252 [place] [address]Dr. Meaganwendie Davie LYMPH # 0.6 103/ul Critically low 1.2-3.8 [facility] Comment on above: Performed By: #### C BC #### Rmwgwifgku8876 [place] [address]Dr. Slick Broderick Lymphocytes/100 WBC (Bld) 9.5 % Critically low 20.5-60.0 [facility] Comment on above: Performed By: #### C BC #### Mfwsxbwwbe2525[address] [place], [place] [address]Dr. Slick Broderick MANUAL DIFF REQ NO Normal [facility] Comment on above: Performed By: #### C BC #### Smtweahjqf0732 [place] [address]Dr. Slick Davie MCH (RBC) [Entitic mass] 30.5 pg Normal 26.7-34.0 [facility] Comment on above: Performed By: #### C BC #### Ljqvzqncgj622[address] [place], [place] [address]Dr. Slick Davie MCHC (RBC) [Mass/Vol] 32.7 g/dL Normal 29.9-35.2 [facility] Comment on above: Performed By: #### C BC #### Vnsvinhopt0034[address] [place], [place] [address]DrEmma Broderick MCV (RBC) [Entitic vol] 93.1 fL Normal 81.0-99.0 [facility] Comment on above: Performed By: #### C BC #### Xovcfmwggd900[address] [place], [place] [address]DrEmma Broderick MONO # 0.6 103/ul Normal 0.3-0.8 [facility] Comment on above: Performed By: #### C BC #### Zndtkyzpsa998354 [address] [place], [place] [address]Dr. Slick Broderick Monocytes/100 WBC (Bld) 8.4 % Normal 1.7-12.0 [facility] Comment on above: Performed By: #### C BC #### Zzfwqyvbaa3261 [place] [address]Dr. Slick Broderick NEUT # 5.0 103/ul Normal 1.4-6.5 [facility] Comment on above: Performed By: #### C BC #### Bducxpvqmx4816 [place] [address]Dr. Slick Broderick Neutrophils/100 WBC (Bld) 76.4 % Critically high 43.0-75.0 [facility] Comment on above: Performed By: #### C BC #### Votivpumam564[address] [place], [place] [address]Dr. Slick Broderick Platelet mean volume (Bld) [Entitic vol] 9.3 fL Critically low 9.5-13.5 [facility] Comment on above: Performed By: #### C BC #### Qlmdajthgw4537[address] [place], [place] [address]Dr. Slick Broderick PLT 192 103/ul Normal 150-450 [facility] Comment on above: Performed By: #### C BC #### Agozwrhjkt8420[address] [place], [place] [address]Dr. Slick Broderick RBC 3.05 106/ul Critically low 4.20-5.40 [facility] Comment on above: Performed By: #### C BC #### Berqdjtlio5601[address] [place], [place] [address]Dr. Slick Broderick WBC 6.6 103/ul Normal 4.0-11.0 The Comment on above: Performed By: #### C BC #### Duiovofpbv2314[address] [place], [place] [address]Dr. Slick Broderick IRONon 02-11-2022 Iron [Mass/Vol] 62.0 ug/dL Normal 50.0-170.0 [facility] Comment on above: Performed By: #### I YUNIOR #### Flrhxkmwni[address] [place] [id number]. Meaganwendie Broderick LIPID PROFILEon 02-11-2022 CHOL-HDL RATIO NORM SEE BELOW Normal [facility] Comment on above: Result Comment: 3.3 - 4.4 LOW RISK 4.4 - 7.1 AVERAGE RISK 7.1 - 11.0 MODERATE RISK >11.0 HIGH RISK Performed By: #### C MP, LIPID, TSH #### Yyyntvlpzl7766 [place], [place] [address]Ke. Slick Broderick Cholesterol [Mass/Vol] 204 mg/dL Critically high <=200 [facility] Comment on above: Performed By: #### C MP, LIPID, TSH #### Ilgarjmovn9843 [place] [id number]. Meaganwendie Broderick Cholesterol in HDL [Mass/Vol] 53 mg/dL Normal 40-60 [facility] Comment on above: Performed By: #### C MP, LIPID, TSH #### Yyjzkkvluf7928 [place] [id number]. Meaganwendie Davie Cholesterol in LDL [Mass/Vol] 134.0 mg/dL Normal [facility] Comment on above: Performed By: #### C MP, LIPID, TSH #### Ktgzhjcavl0148 [place] [id number]. Meaganwendie Davie Cholesterol.total/Corinne sterol in HDL [Mass ratio] 3.8 {ratio} Normal [facility] Comment on above: Performed By: #### C MP, LIPID, TSH #### Jmetrqcblq7919 [place] [id number]. Slick Broderick HDL NORMAL > or = 60 mg/dl - LOW CARDIOVASCULAR RISK <40 mg/dl - HIGH CARDIOVASCULAR RISK Normal [facility] Comment on above: Performed By: #### C MP, LIPID, TSH #### Yioftqwhdw4216 [place] [id number]. Slick Broderick LDL CALC NORMAL SEE BELOW Normal [facility] Comment on above: Result Comment: <100 mg/dl OPTIMAL 100 - 129 mg/dl NEAR OR ABOVE OPTIMAL 130 - 159 mg/dl BORDERLINE HIGH 160 - 189 mg/dl HIGH >190 mg/dl VERY HIGH Performed By: #### C MP, LIPID, TSH #### Apbgrpwsha7784 [place] [id number]. Slick Broderick Triglyceride [Mass/Vol] 85 mg/dL Normal <=150 [facility] Comment on above: Performed By: #### C MP, LIPID, TSH #### Ouobkbftrz1089 [place] [id number]. Slick Broderick VLDL CALC 17.0 mg/dL Normal [facility] Comment on above: Performed By: #### C MP, LIPID, TSH #### Jchnvvobtd9549 [place] [address]Dr. Slick Broderick PROF 14(COMP METB)on 022 Albumin [Mass/Vol] 3.5 g/dL Normal 3.4-5.0 [facility] Comment on above: Performed By: #### C MP, LIPID, TSH #### Uiffvnfsno9855 [place] [address]Dr. Slick Broderick Albumin/Globulin [Mass ratio] 0.9 {ratio} Normal [facility] Comment on above: Performed By: #### C MP, LIPID, TSH #### Lyagunsmnp2390 [place] [address]Dr. Slick Broderick ALP [Catalytic activity/Vol] 93 U/L Normal 46-116 [facility] Comment on above: Performed By: #### C MP, LIPID, TSH #### Oxvimhfpej7707 [place] [address]Dr. Slick Broderick ALT [Catalytic activity/Vol] 21 U/L Normal 14-59 [facility] Comment on above: Performed By: #### C MP, LIPID, TSH #### Iuhsblpils8325 [place] [address]Dr. Slick Broderick Anion gap [Moles/Vol] 13.7 mmol/L Normal [facility] Comment on above: Performed By: #### C MP, LIPID, TSH #### Bdarvwzueb2452 [place] [address]Dr. Slick Broderick AST [Catalytic activity/Vol] 13 U/L Critically low 15-37 [facility] Comment on above: Performed By: #### C MP, LIPID, TSH #### Rmaecalgie0485 [place] [address]Dr. Slick Broderick Bilirubin [Mass/Vol] 0.4 mg/dL Normal 0.2-1.0 [facility] Comment on above: Performed By: #### C MP, LIPID, TSH #### Fqhegugqex8310 [place] [address]Dr. Slick Broderick Calcium [Mass/Vol] 9.2 mg/dL Normal 8.5-10.1 [facility] Comment on above: Performed By: #### C MP, LIPID, TSH #### Qamwkdtjcu0330 [place] [address]Dr. Slick Broderick Chloride [Moles/Vol] 96 mmol/L Critically low 98-107 [facility] Comment on above: Performed By: #### C MP, LIPID, TSH #### Yfwfcwemds5122 [place] [address]Dr. Slick Broderick CO2 [Moles/Vol] 27.8 mmol/L Normal 21.0-32.0 [facility] Comment on above: Performed By: #### C MP, LIPID, TSH #### Akwigmqged6019 [place] [address]Dr. Slick Broderick Creatinine [Mass/Vol] 1.52 mg/dL Critically high 0.55-1.02 [facility] Comment on above: Performed By: #### C MP, LIPID, TSH #### Fhmrdwicek2213 [place] [address]Dr. Slick Broderick EGFR-AF TONGAN 41 mL/min/1.73m2 Critically low >=60 The Comment on above: Performed By: #### C MP, LIPID, TSH #### Uilnbtsoig3297 [place] [address]Dr. Slick Broderick EGFR-NON AF TONGAN 34 mL/min/1.73m2 Critically low >=60 The Comment on above: Performed By: #### C MP, LIPID, TSH #### Dhvrfusmgt3620 [place] [address]Dr. Slick Broderick Globulin (S) [Mass/Vol] 3.7 g/dL Normal [facility] Comment on above: Performed By: #### C MP, LIPID, TSH #### [id number] [place] [address]Dr. Slick Broderick Glucose [Mass/Vol] 96 mg/dL Normal 74-106 [facility] Comment on above: Performed By: #### C MP, LIPID, TSH #### Nnmyoixzgb4198 [place] [address]Dr. Slick Broderick Potassium [Moles/Vol] 4.5 mmol/L Normal 3.5-5.1 [facility] Comment on above: Performed By: #### C MP, LIPID, TSH #### Fumhahutqp[address] [place], [place] [address]Dr. Slick Broderick Protein [Mass/Vol] 7.2 g/dL Normal 6.4-8.2 [facility] Comment on above: Performed By: #### C MP, LIPID, TSH #### Wsraijuysx039[address] [place], [place] [address]Dr. Slick Broderick Sodium [Moles/Vol] 133 mmol/L Critically low 136-145 [facility] Comment on above: Performed By: #### C MP, LIPID, TSH #### Czghpiecbw829[address] [place], [place] [address]Dr. Slick Broderick Urea nitrogen [Mass/Vol] 37.0 mg/dL Critically high 7.0-18.0 [facility] Comment on above: Performed By: #### C MP, LIPID, TSH #### Ebklqqktzq066[address] [place], [place] [address]Dr. Slick Broderick Urea nitrogen/Creatinine [Mass ratio] 24.3 mg/mg Normal [facility] Comment on above: Performed By: #### C MP, LIPID, TSH #### Fvfdsiqrgc[address] [place], [place] [address]Dr. Meaganlan Broderick TSHon 02-11-2022 TSH 3.993 uIU/mL Critically high 0.358-3.740 [facility] Comment on above: Performed By: #### C MP, LIPID, TSH #### Llmaeucqrt[address] [place] [address]Dr. Slick Broderick PRBC LEUKOREDUCEDon 12-18-19 PRBC LEUKOREDUCED Normal [facility] Comment on above: Performed By: #### P RBC #### Ksaffodvfk507[address] [place], [place] [address]Dr. Slick Broderick PRBC LEUKOREDUCED Cross Match Result Compatible Unit Blood Type O Pos Unit Number [id number] Status Information Transfused Product ID Red Blood Cells Product Code [id number] Normal [facility] Comment on above: Performed By: #### P RBC #### Bclydaczkf[address] [place], [place] [address]Dr. Slick Broderick H PYLORI ANTIBODY IGGon H. PYLORI IGG ABS 0.18 Index Value Normal 0.00-0.79 [facility] Comment on above: Result Comment: Nega tive <0.80 Equivocal 0.80 - 0.89 Positive >0.89 Performed By: #### H PYLLC #### Dzftnhmxqv242[address] [place], [place] [address]Dr. Slick Broderick BNPon 12-14-2021 Natriuretic peptide B (Bld) [Mass/Vol] 846.0 pg/mL Normal <=900.0 [facility] Comment on above: Performed By: #### C MP, BNP #### Grdwgovtfh030[address] [place], [place] [address]Dr. Slick Broderick CBC AUTO DIFFon 12-14-2021 BASO # 0.1 103/ul Normal 0.0-0.1 [facility] Comment on above: Performed By: #### C BC #### Zvytpdqgxd4720[address] [place], [place] [address]Dr. Slick Broderick Basophils/100 WBC (Bld) 0.7 % Normal 0.2-2.0 [facility] Comment on above: Performed By: #### C BC #### Pkttlcgutl7111 [place] [id number]. Slick Broderick EO # 0.3 103/ul Normal 0.0-0.7 [facility] Comment on above: Performed By: #### C BC #### Pqblaqbeko9875 [place] [id number]. Slick Broderick Eosinophils/100 WBC (Bld) 4.6 % Normal 0.9-7.0 The Comment on above: Performed By: #### C BC #### Zsajkcxxep768[address] [place], [place] [address]Dr. Slick Broderick Erythrocyte distribution width (RBC) [Ratio] 20.0 % Critically high 11.0-15.0 [facility] Comment on above: Performed By: #### C BC #### Ofgocpulbz035[address] [place], [place] [address]Dr. Slick Broderick Hematocrit (Bld) [Volume fraction] 29.1 % Critically low 36.0-48.0 [facility] Comment on above: Performed By: #### C BC #### Srzzzxfwcf6650[address] [place], [place] [address]Dr. Slick Broderick Hemoglobin (Bld) [Mass/Vol] 9.1 g/dL Critically low 12.0-16.0 [facility] Comment on above: Performed By: #### C BC #### Bbhjqmepiv975[address] [place], [place] [address]Dr. Slick Broderick IG # 0.06 10e3/ul Critically high 0.00-0.03 [facility] Comment on above: Performed By: #### C BC #### Babeqcmpii8538[address] [place], [place] [address]Dr. Slick Broderick IG % 0.9 % Critically high 0.0-0.5 [facility] Comment on above: Performed By: #### C BC #### Gexklkrwvb8340[address] [place], [place] [address]Dr. Slick Broderick LYMPH # 0.8 103/ul Critically low 1.2-3.8 [facility] Comment on above: Performed By: #### C BC #### Gksuxlesxi6578 [place] [id number]. Slick Davie Lymphocytes/100 WBC (Bld) 11.2 % Critically low 20.5-60.0 [facility] Comment on above: Performed By: #### C BC #### Mkshtisdzj7577 [place] [phone]. Slick Broderick MANUAL DIFF REQ NO Normal [facility] Comment on above: Performed By: #### C BC #### Gxwiotmxve9983 [place] [phone]. Meaganwendie Broderick MCH (RBC) [Entitic mass] 30.5 pg Normal 26.7-34.0 [facility] Comment on above: Performed By: #### C BC #### Exdavqlwau69045[address] [place], [place] [address]Dr. Slick Broderick MCHC (RBC) [Mass/Vol] 31.3 g/dL Normal 29.9-35.2 [facility] Comment on above: Performed By: #### C BC #### Hjoaytdtjp5639 [place] [phone]. Slick Broderick MCV (RBC) [Entitic vol] 97.7 fL Normal 81.0-99.0 [facility] Comment on above: Performed By: #### C BC #### Vpjsaonerv[address]02[address] [place], [place] [address]Dr. Slick Broderick MONO # 0.7 103/ul Normal 0.3-0.8 [facility] Comment on above: Performed By: #### C BC #### Nolqgqzfeo2776 [place] [phone]. Slick Broderick Monocytes/100 WBC (Bld) 9.7 % Normal 1.7-12.0 [facility] Comment on above: Performed By: #### C BC #### Rpbvoryczn1333[address] [place], [place] [address]Dr. Slick Broderick NEUT # 4.9 103/ul Normal 1.4-6.5 [facility] Comment on above: Performed By: #### C BC #### Pxnikhfjla4982 [place] [phone]. Slick Broderick Neutrophils/100 WBC (Bld) 72.9 % Normal 43.0-75.0 [facility] Comment on above: Performed By: #### C BC #### Lolsxydrak6114 [place] [phone]. Slick Broderick Platelet mean volume (Bld) [Entitic vol] 8.9 fL Critically low 9.5-13.5 [facility] Comment on above: Performed By: #### C BC #### Objycojpes3046 [place] [phone]. Slick Broderick PLT 239 103/ul Normal 150-450 [facility] Comment on above: Performed By: #### C BC #### Aoqltcenbq6584 [place] [phone]. Slick Broderick RBC 2.98 106/ul Critically low 4.20-5.40 [facility] Comment on above: Performed By: #### C BC #### Vwqwkzbbwr1386 [place] [phone]. Slick Broderick WBC 6.8 103/ul Normal 4.0-11.0 [facility] Comment on above: Performed By: #### C BC #### Rwhiiqopxw932[address] [place], [place] [address]Dr. Slick Broderick BASO # 0.1 103/ul Normal 0.0-0.1 [facility] Comment on above: Performed By: #### C BC #### Pyyglszlwd1256 [place] [phone]. Slick Broderick Basophils/100 WBC (Bld) 0.9 % Normal 0.2-2.0 [facility] Comment on above: Performed By: #### C BC #### Skwiamyfvt8371 [place] [phone]. Slick Broderick EO # 0.3 103/ul Normal 0.0-0.7 [facility] Comment on above: Performed By: #### C BC #### Obrztysxgs0820 [place] [phone]. Slick Broderick Eosinophils/100 WBC (Bld) 4.9 % Normal 0.9-7.0 [facility] Comment on above: Performed By: #### C BC #### Sfyiblbytd4094 [place] [address]Dr. Slick Broderick Erythrocyte distribution width (RBC) [Ratio] 20.3 % Critically high 11.0-15.0 [facility] Comment on above: Performed By: #### C BC #### Kgxudnzjwy0073 [place] [address]Dr. Slick Broderick Hematocrit (Bld) [Volume fraction] 27.6 % Critically low 36.0-48.0 [facility] Comment on above: Performed By: #### C BC #### Ksxvimeclw166[address] [place], [place] [address]Dr. Slick Broderick Hemoglobin (Bld) [Mass/Vol] 8.7 g/dL Critically low 12.0-16.0 [facility] Comment on above: Performed By: #### C BC #### Qpzkwylfvq308[address] [place], [place] [address]Dr. Slick Broderick IG # 0.05 10e3/ul Critically high 0.00-0.03 [facility] Comment on above: Performed By: #### C BC #### Qvtkniwmkd9914[address] [place], [place] [address]Dr. Slick Broderick IG % 0.7 % Critically high 0.0-0.5 [facility] Comment on above: Performed By: #### C BC #### Qtjkwlfirn228[address] [place], [place] [address]Dr. Slick Broderick LYMPH # 0.9 103/ul Critically low 1.2-3.8 [facility] Comment on above: Performed By: #### C BC #### Jdenahvjjw927[address] [place], [place] [address]Dr. Slick Broderick Lymphocytes/100 WBC (Bld) 13.1 % Critically low 20.5-60.0 The Comment on above: Performed By: #### C BC #### Jioaukcawz3729 [place] [phone]. Slick Broderick MANUAL DIFF REQ NO Normal [facility] Comment on above: Performed By: #### C BC #### Sznqjkajbr2922 [place] [phone]. Slick Broderick MCH (RBC) [Entitic mass] 31.0 pg Normal 26.7-34.0 [facility] Comment on above: Performed By: #### C BC #### Rzauansdbl1395 [place] [phone]. Slick Broderick MCHC (RBC) [Mass/Vol] 31.5 g/dL Normal 29.9-35.2 [facility] Comment on above: Performed By: #### C BC #### Uewratsawe3880 [place] [address]Dr. Slick Broderick MCV (RBC) [Entitic vol] 98.2 fL Normal 81.0-99.0 [facility] Comment on above: Performed By: #### C BC #### Fekpzdsyfv6462 [place] [address]Dr. Slick Broderick MONO # 0.8 103/ul Normal 0.3-0.8 [facility] Comment on above: Performed By: #### C BC #### Irfijmfgfa1933 [place] [address]Dr. Slick Broderick Monocytes/100 WBC (Bld) 11.4 % Normal 1.7-12.0 [facility] Comment on above: Performed By: #### C BC #### Dvdmoxcqdr1934 [place] [phone]. Slick Broderick NEUT # 4.8 103/ul Normal 1.4-6.5 [facility] Comment on above: Performed By: #### C BC #### Zbmczgqhkb2918 [place] [phone]. Slcik Broderick Neutrophils/100 WBC (Bld) 69.0 % Normal 43.0-75.0 [facility] Comment on above: Performed By: #### C BC #### Gikxdmjbnm4656 [place] [address]DrEmma Broderick Platelet mean volume (Bld) [Entitic vol] 9.3 fL Critically low 9.5-13.5 [facility] Comment on above: Performed By: #### C BC #### Spjogqtbih7733 [place] [address]Dr. Slick Broderick PLT 229 103/ul Normal 150-450 [facility] Comment on above: Performed By: #### C BC #### Emqpthfrmb2042 [place] [address]DrEmma Broderick RBC 2.81 106/ul Critically low 4.20-5.40 [facility] Comment on above: Performed By: #### C BC #### Nhrzjfaxhx3625 [place] [address]DrEmma Broderick WBC 7.0 103/ul Normal 4.0-11.0 [facility] Comment on above: Performed By: #### C BC #### Xditfohmep3718 [place] [address]Dr. Slick Broderick POINT OF CARE GLUCOSEon Glucose [Mass/Vol] 255 mg/dL Critically high 74-106 [facility] Comment on above: Performed By: #### P OCGLUC #### Bywppxlhls4156 [place] [address]DrEmma Broderick PROF 14(COMP METB)on 022 Albumin [Mass/Vol] 2.3 g/dL Critically low 3.4-5.0 [facility] Comment on above: Performed By: #### C MP, BNP #### Bpznzjweil8712 [place] [address]Dr. Slick Broderick Albumin/Globulin [Mass ratio] 0.6 {ratio} Normal [facility] Comment on above: Performed By: #### C MP, BNP #### Dthpqvgpce7661 [place] [address]DrEmma Broderick ALP [Catalytic activity/Vol] 94 U/L Normal 46-116 [facility] Comment on above: Performed By: #### C MP, BNP #### Agmwqascgq4025[address] [place], [place] [address]Dr. Slick Broderick ALT [Catalytic activity/Vol] 17 U/L Normal 14-59 [facility] Comment on above: Performed By: #### C MP, BNP #### Zsaztfcihw469[address] [place], [place] [address]Dr. Slick Broderick Anion gap [Moles/Vol] 11.6 mmol/L Normal Th [facility] Comment on above: Performed By: #### C MP, BNP #### Ovqvyqqqcl968354 [address] [place], [place] [address]Dr. Slick Davie AST [Catalytic activity/Vol] 13 U/L Critically low 15-37 [facility] Comment on above: Performed By: #### C MP, BNP #### Kozrdxaoxg8340[address] [place], [place] [address]Dr. Slick Davie Bilirubin [Mass/Vol] 0.3 mg/dL Normal 0.2-1.0 [facility] Comment on above: Performed By: #### C MP, BNP #### Twncdcioxb809[address] [place], [place] [address]Dr. Slick Davie Calcium [Mass/Vol] 7.9 mg/dL Critically low 8.5-10.1 [facility] Comment on above: Performed By: #### C MP, BNP #### Ihtjszihfq003154 [address] [place], [place] [address]Dr. Slick Davie Chloride [Moles/Vol] 104 mmol/L Normal 98-107 The Comment on above: Performed By: #### C MP, BNP #### Dalophrjgu0400[address] [place], [place] [address]Dr. Meaganwendie Broderick CO2 [Moles/Vol] 25.1 mmol/L Normal 21.0-32.0 [facility] Comment on above: Performed By: #### C MP, BNP #### Wvsksoenfa8626[address] [place], [place] [address]Dr. Slick Broderick Creatinine [Mass/Vol] 1.64 mg/dL Critically high 0.55-1.02 [facility] Comment on above: Performed By: #### C MP, BNP #### Mmptzxwlxh1094 [place] [address]Dr. Slick Broderick EGFR-AF TONGAN 37 mL/min/1.73m2 Critically low >=60 [facility] Comment on above: Performed By: #### C MP, BNP #### Zijnnsoefz8267 [place] [address]Dr. Slick Broderick EGFR-NON AF TONGAN 31 mL/min/1.73m2 Critically low >=60 [facility] Comment on above: Performed By: #### C MP, BNP #### Mjrmunmjhw1172 [place] [address]Dr. Slick Brdoerick Globulin (S) [Mass/Vol] 3.6 g/dL Normal T [facility] Comment on above: Performed By: #### C MP, BNP #### Rtkmxervuu9813 [place] [address]Dr. Slick Broderick Glucose [Mass/Vol] 100 mg/dL Normal 74-106 [facility] Comment on above: Performed By: #### C MP, BNP #### Vaazgwpxxs9255 [place] [address]Dr. Slick Broderick Potassium [Moles/Vol] 4.7 mmol/L Normal 3.5-5.1 [facility] Comment on above: Performed By: #### C MP, BNP #### Sfegrcciwl3576 [place] [address]Dr. Slick Broderick Protein [Mass/Vol] 5.9 g/dL Critically low 6.4-8.2 [facility] Comment on above: Performed By: #### C MP, BNP #### Mglkpahypy9832 [place] [address]Dr. Silck Broderick Sodium [Moles/Vol] 136 mmol/L Normal 136-145 [facility] Comment on above: Performed By: #### C MP, BNP #### Knuhogztst5916 [place] [phone]. Slick Broderick Urea nitrogen [Mass/Vol] 27.0 mg/dL Critically high 7.0-18.0 [facility] Comment on above: Performed By: #### C MP, BNP #### Bnbuydebzw5846[address] [place], [place] [address]Dr. Slick Broderick Urea nitrogen/Creatinine [Mass ratio] 16.5 mg/mg Normal [facility] Comment on above: Performed By: #### C MP, BNP #### Zzcrlnirvz6060[address] [place], [place] [address]Dr. Slick Broderick CBC AUTO DIFFon 12-13-2021 BASO # 0.0 103/ul Normal 0.0-0.1 [facility] Comment on above: Performed By: #### C BC #### Xeeyqfswkc0830[address] [place], [place] [address]Dr. Slick Broderick Basophils/100 WBC (Bld) 0.5 % Normal 0.2-2.0 [facility] Comment on above: Performed By: #### C BC #### Admuupoaxr564[address] [place], [place] [address]Dr. Slick Broderick EO # 0.3 103/ul Normal 0.0-0.7 [facility] Comment on above: Performed By: #### C BC #### Krkrkaoimm288[address] [place], [place] [address]Dr. Slick Broderick Eosinophils/100 WBC (Bld) 4.4 % Normal 0.9-7.0 [facility] Comment on above: Performed By: #### C BC #### Mfibzwumpu494[address] [place], [place] [address]Dr. Slick Broderick Erythrocyte distribution width (RBC) [Ratio] 20.5 % Critically high 11.0-15.0 [facility] Comment on above: Performed By: #### C BC #### Bjyfskfqfe800054 [address] [place], [place] [address]Dr. Slick Broderick Hematocrit (Bld) [Volume fraction] 29.5 % Critically low 36.0-48.0 [facility] Comment on above: Performed By: #### C BC #### Tzcjckcbqo6109 [place] [phone] Broderick Hemoglobin (Bld) [Mass/Vol] 9.3 g/dL Critically low 12.0-16.0 [facility] Comment on above: Result Comment: post transfusion Performed By: #### C BC #### Pruxjfkkkl1827 [place] [address]DrEmma Broderick IG # 0.07 10e3/ul Critically high 0.00-0.03 [facility] Comment on above: Performed By: #### C BC #### Ilajskigic7934 [place] [address]DrEmma Broderick IG % 0.9 % Critically high 0.0-0.5 [facility] Comment on above: Performed By: #### C BC #### Myggmkplyt3464[address] [place], [place] [address]DrEmma Broderick LYMPH # 0.9 103/ul Critically low 1.2-3.8 [facility] Comment on above: Performed By: #### C BC #### Fbwfjcakmp1410 [place] [address]DrEmma Broderick Lymphocytes/100 WBC (Bld) 11.5 % Critically low 20.5-60.0 [facility] Comment on above: Performed By: #### C BC #### Yckaxgfvav5306 [place] [address]DrEmma Broderick MANUAL DIFF REQ NO Normal [facility] Comment on above: Performed By: #### C BC #### Acqtpxdrwu7010 [place] [phone] Broderick MCH (RBC) [Entitic mass] 30.9 pg Normal 26.7-34.0 [facility] Comment on above: Performed By: #### C BC #### Qmgjxgstfa3425 [place] [phone] Broderick MCHC (RBC) [Mass/Vol] 31.5 g/dL Normal 29.9-35.2 [facility] Comment on above: Performed By: #### C BC #### Smgxefpsso4972 [place] [address]DrEmma Broderick MCV (RBC) [Entitic vol] 98.0 fL Normal 81.0-99.0 [facility] Comment on above: Performed By: #### C BC #### Aehafkwmni3733 [place] [address]DrEmma Broderick MONO # 0.6 103/ul Normal 0.3-0.8 [facility] Comment on above: Performed By: #### C BC #### Vbssvsllxl3538 [place] [address]DrEmma Broderick Monocytes/100 WBC (Bld) 8.6 % Normal 1.7-12.0 [facility] Comment on above: Performed By: #### C BC #### Fpxkxmkylu280[address] [place], [place] [address]DrEmma Broderick NEUT # 5.5 103/ul Normal 1.4-6.5 [facility] Comment on above: Performed By: #### C BC #### Fgkpycytho918[address] [place], [place] [address]DrEmma Broderick Neutrophils/100 WBC (Bld) 74.1 % Normal 43.0-75.0 [facility] Comment on above: Performed By: #### C BC #### Icrfjgssil2064[address] [place], [place] [address]DrEmma Broderick Platelet mean volume (Bld) [Entitic vol] 9.0 fL Critically low 9.5-13.5 [facility] Comment on above: Performed By: #### C BC #### Edgtflrnek1318[address] [place], [place] [address]DrEmma Broderick PLT 231 103/ul Normal 150-450 The Comment on above: Performed By: #### C BC #### Hqaajokhnq3933[address] [place], [place] [address]DrEmma Broderick RBC 3.01 106/ul Critically low 4.20-5.40 [facility] Comment on above: Performed By: #### C BC #### Itzzlfefxz2749 [place] [id number]. Slick Broderick WBC 7.5 103/ul Normal 4.0-11.0 [facility] Comment on above: Performed By: #### C BC #### Fszrosnzqd1104 [place] [id number]. Slick Broderick BASO # 0.0 103/ul Normal 0.0-0.1 [facility] Comment on above: Performed By: #### C BC #### Hqpmiwzunt0701 [place] [id number]. Slick Broderick Basophils/100 WBC (Bld) 0.3 % Normal 0.2-2.0 [facility] Comment on above: Performed By: #### C BC #### Cnpkbyiomy622[address] [place], [place] [address]Dr. Slick Broderick EO # 0.3 103/ul Normal 0.0-0.7 [facility] Comment on above: Performed By: #### C BC #### Pydjzczsfo797[address] [place], [place] [address]Dr. Slick Broderick Eosinophils/100 WBC (Bld) 3.8 % Normal 0.9-7.0 [facility] Comment on above: Performed By: #### C BC #### Xidnjjjojf775[address] [place], [place] [address]Dr. Slick Broderick Erythrocyte distribution width (RBC) [Ratio] 17.4 % Critically high 11.0-15.0 [facility] Comment on above: Performed By: #### C BC #### Dqhvwcgaow4067[address] [place], [place] [address]Dr. Slick Broderick Hematocrit (Bld) [Volume fraction] 22.4 % Critically low 36.0-48.0 [facility] Comment on above: Result Comment: Test Repeated Critical Value Verified Performed By: #### C BC #### Jptayvqggn0550[address] [place], [place] [address]Dr. Slick Broderick Hemoglobin (Bld) [Mass/Vol] 7.1 g/dL Critically low 12.0-16.0 The Comment on above: Performed By: #### C BC #### Xobkakcaed0700 [place] [address]DrEmma Broderick IG # 0.06 10e3/ul Critically high 0.00-0.03 [facility] Comment on above: Performed By: #### C BC #### Vzfravuzuu8710[address] [place], [place] [address]DrEmma Broderick IG % 0.8 % Critically high 0.0-0.5 [facility] Comment on above: Performed By: #### C BC #### Sjdnhkdpmy536[address] [place], [place] [address]DrEmma Broderick LYMPH # 0.8 103/ul Critically low 1.2-3.8 [facility] Comment on above: Performed By: #### C BC #### Liwmbfxxnt9812[address] [place], [place] [address]DrEmma Broderick Lymphocytes/100 WBC (Bld) 10.7 % Critically low 20.5-60.0 [facility] Comment on above: Performed By: #### C BC #### Doshniyzin118254 [address] [place], [place] [address]DrEmma Broderick MANUAL DIFF REQ NO Normal [facility] Comment on above: Performed By: #### C BC #### Hurjfiideq2495[address] [place], [place] [address]DrEmma Broderick MCH (RBC) [Entitic mass] 32.3 pg Normal 26.7-34.0 The Comment on above: Performed By: #### C BC #### Xpcddanhwm413354 [address] [place], [place] [address]DrEmma Broderick MCHC (RBC) [Mass/Vol] 31.7 g/dL Normal 29.9-35.2 The Comment on above: Performed By: #### C BC #### Paqirfsaky102[address] [place], [place] [address]DrEmma Broderick MCV (RBC) [Entitic vol] 101.8 fL Critically high 81.0-99 .0 The Comment on above: Performed By: #### C BC #### Knoqrqnbwa1638 [place] [address]DrEmma Broderick MONO # 0.8 103/ul Normal 0.3-0.8 The Comment on above: Performed By: #### C BC #### Sdshavngxn8[address] [place], [place] [address]DrEmma Slick Davie Monocytes/100 WBC (Bld) 10.7 % Normal 1.7-12.0 [facility] Comment on above: Performed By: #### C BC #### Mqtewfuywb4225[address] [place], [place] [address]DrEmma Slick Broderick NEUT # 5.6 103/ul Normal 1.4-6.5 The Comment on above: Performed By: #### C BC #### Gjyffnevnc10[address] [place], [place] [address]DrEmma Slick Broderick Neutrophils/100 WBC (Bld) 73.7 % Normal 43.0-75.0 The Comment on above: Performed By: #### C BC #### Zbqhobzszm032[address] [place], [place] [address]DrEmma Slick Davie Platelet mean volume (Bld) [Entitic vol] 9.4 fL Critically low 9.5-13.5 [facility] Comment on above: Performed By: #### C BC #### Hxwunpepfq[address] [place], [place] [address]DrEmma Slick Davie PLT 209 103/ul Normal 150-450 The Comment on above: Performed By: #### C BC #### Nzrzxuopin[address] [place], [place] [address]DrEmma Rhodeswendie Davie RBC 2.20 106/ul Critically low 4.20-5.40 [facility] Comment on above: Performed By: #### C BC #### Zvwwlupuha0735[address] [place], [place] [address]Dr. Slick Broderick WBC 7.6 103/ul Normal 4.0-11.0 [facility] Comment on above: Performed By: #### C BC #### Vtqqescjwr269[address] [place], [place] [address]Dr. Slick Broderick PROF 14(COMP METB)on 022 Albumin [Mass/Vol] 2.1 g/dL Critically low 3.4-5.0 [facility] Comment on above: Performed By: #### C MP #### Axpvslczaj74[address] [place], [place] [address]DrEmma Broderick Albumin/Globulin [Mass ratio] 0.7 {ratio} Normal [facility] Comment on above: Performed By: #### C MP #### Vbxhwgyasu9985[address] [place], [place] [address]Dr. Slick Broderick ALP [Catalytic activity/Vol] 83 U/L Normal 46-116 [facility] Comment on above: Performed By: #### C MP #### Eivbmrdpyj97[address] [place], [place] [address]Dr. Slick Broderick ALT [Catalytic activity/Vol] 12 U/L Critically low 14-59 [facility] Comment on above: Performed By: #### C MP #### Eiyzkdjgak[address] [place], [place] [address]DrEmma Broderick Anion gap [Moles/Vol] 14.0 mmol/L Normal [facility] Comment on above: Performed By: #### C MP #### [id number] [place], [place] [address]Dr. Slick Broderick AST [Catalytic activity/Vol] 13 U/L Critically low 15-37 [facility] Comment on above: Performed By: #### C MP #### Ayhsowjuwb[address] [place], [place] [address]DrEmma Broderick Bilirubin [Mass/Vol] 0.3 mg/dL Normal 0.2-1.0 [facility] Comment on above: Performed By: #### C MP #### Bnanpmxwoi[address] [place], [place] [address]DrEmma Broderick Calcium [Mass/Vol] 7.4 mg/dL Critically low 8.5-10.1 Th e Comment on above: Performed By: #### C MP #### Xilgjvbiwa8633 [place] [address]Dr. Slick Broderick Chloride [Moles/Vol] 105 mmol/L Normal 98-107 [facility] Comment on above: Performed By: #### C MP #### Dxxisbjahl[address] [place], [place] [address]Dr. Slick Broderick CO2 [Moles/Vol] 23.0 mmol/L Normal 21.0-32.0 [facility] Comment on above: Performed By: #### C MP #### Qlloqucmit[address] [place], [place] [address]Dr. Slick Broderick Creatinine [Mass/Vol] 1.80 mg/dL Critically high 0.55-1.02 [facility] Comment on above: Performed By: #### C MP #### Ceauahksen[address] [place], [place] [address]Dr. Slick Broderick EGFR-AF TONGAN 33 mL/min/1.73m2 Critically low >=60 [facility] Comment on above: Performed By: #### C MP #### Ygldwqyfeg987[address] [place], [place] [address]Dr. Slick Broderick EGFR-NON AF TONGAN 28 mL/min/1.73m2 Critically low >=60 [facility] Comment on above: Performed By: #### C MP #### Zwoatbkvau[address] [place], [place] [address]Dr. Slick Broderick Globulin (S) [Mass/Vol] 3.2 g/dL Normal T [facility] Comment on above: Performed By: #### C MP #### Ewzcrnhdma357054 [address] [place], [place] [address]Dr. Slick Broderick Glucose [Mass/Vol] 85 mg/dL Normal 74-106 [facility] Comment on above: Performed By: #### C MP #### Aiecvqmyzw089[address] [place], [place] [address]Dr. Slick Broderick Potassium [Moles/Vol] 5.0 mmol/L Normal 3.5-5.1 [facility] Comment on above: Performed By: #### C MP #### Wqgrhbvwqj505[address] [place], [place] [address]Dr. Slick Broderick Protein [Mass/Vol] 5.3 g/dL Critically low 6.4-8.2 Th e Comment on above: Performed By: #### C MP #### Ucuigxyaad026[address] [place], [place] [address]Dr. Slick Broderick Sodium [Moles/Vol] 137 mmol/L Normal 136-145 [facility] Comment on above: Performed By: #### C MP #### Mndjlysfwi380[address] [place], [place] [address]Dr. Slick Broderick Urea nitrogen [Mass/Vol] 30.0 mg/dL Critically high 7.0-18.0 [facility] Comment on above: Performed By: #### C MP #### Aazorrzlhn156[address] [place], [place] [address]Dr. Slick Broderick Urea nitrogen/Creatinine [Mass ratio] 16.7 mg/mg Normal [facility] Comment on above: Performed By: #### C MP #### Izgryevvht833[address] [place], [place] [address]Dr. Slick Broderick ABO RH RETYPEon 12-12-2021 ABO and Rh group Nom (Bld) DONE Normal [facility] Comment on above: Performed By: #### R ETYPE #### Gnlbwxhhlk675[address] [place], [place] [address]Dr. Slick Broderick BNPon 12-12-2021 Natriuretic peptide B (Bld) [Mass/Vol] 952.0 pg/mL Critically high <=900.0 The Comment on above: Performed By: #### B MANAGER BRIDGE, CRP, CMP #### Fwvaqrakbm215[address] [place], [place] [address]Dr. Slick Broderick CBC AUTO DIFFon 12-12-2021 BASO # 0.0 103/ul Normal 0.0-0.1 [facility] Comment on above: Performed By: #### C BC #### Qsjldbhwwi7125 [place] [id number]. Slick Broderick Basophils/100 WBC (Bld) 0.2 % Normal 0.2-2.0 [facility] Comment on above: Performed By: #### C BC #### Kortblahqv8965 [place] [id number]. Slick Broderick EO # 0.2 103/ul Normal 0.0-0.7 [facility] Comment on above: Performed By: #### C BC #### Ehievkiqss2890 [place] [address]Dr. Slick Broderick Eosinophils/100 WBC (Bld) 2.6 % Normal 0.9-7.0 [facility] Comment on above: Performed By: #### C BC #### Ymlzqptuhn933[address] [place], [place] [address]Dr. Slick Broderick Erythrocyte distribution width (RBC) [Ratio] 17.2 % Critically high 11.0-15.0 [facility] Comment on above: Performed By: #### C BC #### Rcpoessquy3218[address] [place], [place] [address]Dr. Slick Broderick Hematocrit (Bld) [Volume fraction] 24.0 % Critically low 36.0-48.0 [facility] Comment on above: Performed By: #### C BC #### Nuzkkvarcn5565[address] [place], [place] [address]Dr. Slick Broderick Hemoglobin (Bld) [Mass/Vol] 7.7 g/dL Critically low 12.0-16.0 [facility] Comment on above: Performed By: #### C BC #### Wusbnepuia[address] [place], [place] [address]Dr. Slick Broderick IG # 0.05 10e3/ul Critically high 0.00-0.03 [facility] Comment on above: Performed By: #### C BC #### Svqwulndpr[address] [place], [place] [id number]. Slick Broderick IG % 0.5 % Normal 0.0-0.5 [facility] Comment on above: Performed By: #### C BC #### Jypnakxxyj3623 [place] [id number] Brodercik LYMPH # 0.7 103/ul Critically low 1.2-3.8 [facility] Comment on above: Performed By: #### C BC #### Npsaesngvi3667 [place] [address]Dr. Slick Broderick Lymphocytes/100 WBC (Bld) 7.7 % Critically low 20.5-60.0 [facility] Comment on above: Performed By: #### C BC #### Dsnsodsftd4852 [place] [phone] Broderick MANUAL DIFF REQ NO Normal [facility] Comment on above: Performed By: #### C BC #### Lsswzvbpfs4832 [place] [phone] Broderick MCH (RBC) [Entitic mass] 32.6 pg Normal 26.7-34.0 [facility] Comment on above: Performed By: #### C BC #### Fryelkvskl0342 [place] [id number]. Slick Broderick MCHC (RBC) [Mass/Vol] 32.1 g/dL Normal 29.9-35.2 [facility] Comment on above: Performed By: #### C BC #### Pqdmbmfjyk2595 [place] [phone] Broderick MCV (RBC) [Entitic vol] 101.7 fL Critically high 81.0-99 .0 [facility] Comment on above: Performed By: #### C BC #### Kvqobfulxg0967 [place] [phone] Broderick MONO # 0.8 103/ul Normal 0.3-0.8 [facility] Comment on above: Performed By: #### C BC #### Lzhjcsoixc1546 [place] [phone] Broderick Monocytes/100 WBC (Bld) 8.5 % Normal 1.7-12.0 [facility] Comment on above: Performed By: #### C BC #### Ebjybcsycb2176 [place] [address]Dr. Slick Broderick NEUT # 7.3 103/ul Critically high 1.4-6.5 [facility] Comment on above: Performed By: #### C BC #### Xpfgwakuhi2504 [place] [address]Dr. Slick Broderick Neutrophils/100 WBC (Bld) 80.5 % Critically high 43.0-75.0 [facility] Comment on above: Performed By: #### C BC #### Nfvbamwnii8507 [place] [address]Dr. Slick Broderick Platelet mean volume (Bld) [Entitic vol] 8.9 fL Critically low 9.5-13.5 [facility] Comment on above: Performed By: #### C BC #### Yfieockcbs[address] [place], [place] [address]Dr. Slick Broderick PLT 204 103/ul Normal 150-450 [facility] Comment on above: Performed By: #### C BC #### Vkxeqkbrml3839[address] [place], [place] [address]Dr. Slick Broderick RBC 2.36 106/ul Critically low 4.20-5.40 [facility] Comment on above: Performed By: #### C BC #### Frquscszno1554 [place] [address]Dr. Slick Broderick WBC 9.1 103/ul Normal 4.0-11.0 [facility] Comment on above: Performed By: #### C BC #### Yvefmpcblz6876 [place] [phone]. Slick Broderick CBC W MANUAL DIFFon 12-13-19 22 ATYPICAL LYMPH # Normal [facility] Comment on above: Performed By: #### C BCMAN #### Pqamqeztqp5010 [place] [address]Dr. Slick Davie ATYPICAL LYMPH % Normal [facility] Comment on above: Performed By: #### C BCMAN #### Deqcfulvzm2292 [place] [phone]. Yilan Broderick BAND # Normal 0.0-0.3 The Comment on above: Performed By: #### C BCNAZARIO #### Efskidlycb5177 [place] [address]Dr. Yilan Broderick BAND % Normal 0-5 The Comment on above: Performed By: #### C BCNAZARIO #### Gbeyotyqjl3964 [place] [address]Dr. Yilan Broderick BASOM # 0.00 103/ul Normal 0.00-0.10 The Comment on above: Performed By: #### C BCNAZARIO #### Ayqwwwoggw156[address] [place], [place] [address]Dr. Yilan Broderick BASOM % 0.0 % Critically low 0.2-2.0 [facility] Comment on above: Performed By: #### C AIDEN #### Mhtigahgjs[address] [place], [place] [address]Dr. Yilan Broderick BLAST # Normal The Comment on above: Performed By: #### C AIDEN #### Pyrfvjrywc[address] [place], [place] [address]Dr. Yilan Broderick BLAST % Normal The Comment on above: Performed By: #### C AIDEN #### Kvkeuarzuq[address] [place], [place] [address]Dr. Yilan Broderick CORRECTED WBC Normal 4.0-11.0 [facility] Comment on above: Performed By: #### C AIDEN #### Vfkabzoelo4467 [place] [address]Dr. Yilan Broderick EOS # 0.35 103/ul Normal 0.00-0.70 The Comment on above: Performed By: #### C AIDEN #### Gfhkcvxbve819[address] [place], [place] [address]Dr. Yilan Broderick EOS% 3.0 % Normal 0.9-7.0 The Comment on above: Performed By: #### C AIDEN #### Mzrxocolwn9358 [place], [place] [address]Pk. Slick Broderick HCT 21.4 % Critically low 36.0-48.0 [facility] Comment on above: Result Comment: TEST REPEATED CRITICAL VALUE VERIFIED Performed By: #### C AIDEN #### Irfbnqerzt2748 [place] [phone]. Slick Broderick HGB 6.6 g/dl Critically low 12.0-16.0 [facility] Comment on above: Result Comment: TEST REPEATED CRITICAL VALUE VERIFIED Performed By: #### C AIDEN #### Xyawlhxshr4333 [place] [id number]. Slick Broderick LYMPHM # 0.59 103/ul Critically low 1.20-3.80 [facility] [place] [facility] Comment on above: Performed By: #### C AIDEN #### Kggcjcqfzq5216 [place] [phone]. Slick Broderick LYMPHM% 5.0 % Critically low 20.5-60.0 [facility] Comment on above: Performed By: #### C AIDEN #### Esovqsaxsv4676 [place] [phone]. Slick Broderick MCH 33.2 pg Normal 26.7-34.0 [facility] Comment on above: Performed By: #### C AIDEN #### Mktllbrgwj8670 [place] [phone]. Slick Broderick MCHC 30.8 g/dl Normal 29.9-35.2 The Comment on above: Performed By: #### C AIDEN #### Gakjjmmboi5008 [place] [phone]. Slick Broderick MCV 107.5 fL Critically high 81.0-99.0 [facility] Comment on above: Result Comment: RBCS APPEAR MACROCYTIC ON PERIPHERAL SMEAR Performed By: #### C AIDEN #### Wtrrhqzwsa6087 [place] [phone]. Slick Broderick METAMYELOCYTE # Normal [facility] Comment on above: Performed By: #### C AIDEN #### Vnvcwqjwnr6299 [place], [place] [address]Ds. Slick Broderick METAMYELOCYTE % Normal [facility] Comment on above: Performed By: #### C AIDEN #### Dvvdoohmvh3759 [place], [place] [address]Iz. Slick Broderick MONOM# 0.71 103/ul Normal 0.30-0.80 [facility] Comment on above: Performed By: #### C AIDEN #### Mdnjmtubgu7796 [place] [id number]. Slick Broderick MONOM% 6.0 % Normal 1.7-12.0 [facility] Comment on above: Performed By: #### C AIDEN #### Icemikkquf1368 [place] [phone]. Slick Broderick MPV 9.2 fL Critically low 9.5-13.5 [facility] Comment on above: Performed By: #### C AIDEN #### Qroopjovop1403 [place] [phone]. Slick Broderick MYELOCYTE # Normal [facility] Comment on above: Performed By: #### Carlos Manuel WOLFE #### Mniwgwqsiy1036 [place] [phone]. Slick Broderick MYELOCYTE % Normal The Comment on above: Performed By: #### Carlos Manuel WOLFE #### Gzloujmdxk1106 [place] [phone]. Slick Broderick NRBC Normal [facility] Comment on above: Performed By: #### C AIDEN #### Cyytpxqlqa7923 [place] [phone]. Slick Broderick PLT 232 103/ul Normal 150-450 The Comment on above: Performed By: #### C AIDEN #### Nemkftfzst9202 [place] [phone]. Slick Broderick RBC 1.99 106/ul Critically low 4.20-5.40 [facility] Comment on above: Performed By: #### C AIDEN #### Peljzbtfwb9078 [place], [place] [address]Ah. Slick Broderick RDW 15.6 % Critically high 11.0-15.0 [facility] Comment on above: Performed By: #### C BCMAN #### Khybdnxmrm8077 [place], [place] [address]Uc. Slick Broderick SEG # 10.15 103/ul Critically high 1.40-6.50 [facility] Comment on above: Performed By: #### C BCMAN #### Uxrhchyizp9026 [place], [place] [address]Sc. Slick Broderick SEG % 86.0 % Critically high 43.0-75.0 [facility] Comment on above: Performed By: #### C BCMAN #### Nhzcmcfbcd5267 [place] [id number]. Slick Broderick WBC 11.8 103/ul Critically high 4.0-11.0 [facility] Comment on above: Performed By: #### C ELIZABETHMAN #### Mmfytkaltv9439 [place] [phone]. Slick Broderick CRPon 12-12-2021 CRP 10.1 mg/dL Critically high <=1.0 [facility] Comment on above: Performed By: #### B MANAGER BRIDGE, CRP, CMP #### Mbsfgmnmuv0687 [place] [phone]. Slick Broderick CULTURE BLOODon 12-12-2021 Microscopic examination of blood, culture Culture Observations: NO GROWTH AT 5 DAYS. [facility] Comment on above: Performed By: #### B LDCX2 #### Goflueeuab7379 [place] [id number]. Slick Broderick Microscopic examination of blood, culture Culture Observations: NO GROWTH AT 5 DAYS. Normal [facility] Comment on above: Performed By: #### B LDCX1 #### Qhipclzhdk8349 [place] [id number]. Slick Broderick CULTURE URINEon 12-12-2021 CULTURE URINE Culture Observations: NO GROWTH. Normal [facility] Comment on above: Performed By: #### U RCX #### Qocrnxclvm5481 [place] [address]Dr. Slick Broderick Covid-19 PCR (CVDTB)on SARS-CoV-2 (COVID-19) RNA DONNIE+probe Ql (Unsp spec) Not detected Normal NOT DETECTED The Comment on above: Result Comment: When diagnostic [...] for this test is supported by the [place] of [employer] and Human Service's declaration that [...] be used). Performed By: #### C VDTBH #### Dvdptxkouz7210 [place] [address]Dr. Slick Broderick ER URINE PROFILEon 2 Bilirubin Ql (U) Negative Normal NEGATIVE [facility] Comment on above: Performed By: #### U MICRO, ERUR #### Nnkhkmqeid15[address] [place], [place] [address]Dr. Slick Broderick Clarity (U) CLOUDY Abnormal CLEAR The Comment on above: Performed By: #### U MICRO, ERUR #### Kzpzmojatz687[address] [place], [place] [address]Dr. Slick Broderick Color (U) LT. YELLOW Normal YELLOW The Comment on above: Performed By: #### U MICRO, ERUR #### Grwtjfrpbi847[address] [place], [place] [address]Dr. Slick SALGADO A micrscopic examination will be performed if indicated. Normal The Comment on above: Performed By: #### U MICRO, ERUR #### Wsbphwpehh7501 [place] [address]Dr. Slick Broderick Glucose Ql (U) Negative Normal NEGATIVE [facility] Comment on above: Performed By: #### U MICRO, ERUR #### Evrcfghvku6766 [place] [address]Dr. Slick Broderick Hemoglobin Ql (U) Negative Normal NEGATIVE [facility] Comment on above: Performed By: #### U MICRO, ERUR #### Drgpceowxg389[address] [place], [place] [address]Dr. Slick Broderick Ketones Ql (U) Negative Normal NEGATIVE [facility] Comment on above: Performed By: #### U MICRO, ERUR #### Pfcstcvnkv087[address] [place], [place] [address]Dr. Slick Broderick LEUKOCYTES MODERATE Abnormal NEGATIVE The Comment on above: Performed By: #### U MICRO, ERUR #### Dkcclmqjdr3236[address] [place], [place] [address]Dr. Slick Davie Nitrite Ql (U) Negative Normal NEGATIVE [facility] Comment on above: Performed By: #### U MICRO, ERUR #### Vggrpqxmvc787[address] [place], [place] [address]Dr. Slick Broderick pH (U) 6.0 [pH] Normal 5-9 The Comment on above: Performed By: #### U MICRO, ERUR #### Nykarsvuxg[address] [place], [place] [address]Dr. Slick Broderick SPEC GRAVITY 1.010 Normal 1.005-<=1.0 25 [facility] Comment on above: Performed By: #### U MICRO, ERUR #### Otwwntadli[address] [place], [place] [address]Dr. Slick Broderick UA PROTEIN Negative Normal NEGATIVE/ TRACE The Comment on above: Performed By: #### U MICRO, ERUR #### Zupnjwetxa8314 [place] [address]Dr. Slick Broderick UR MICRO IND INDICATED Normal The Comment on above: Performed By: #### U MICRO, ERUR #### Swegscryot2168 [place] [address]Dr. Slick Broderick Urobilinogen Qn (U) 0.2 {Hiren'U}/dL Normal 0.2 - 1. 0 The Comment on above: Performed By: #### U MICRO, ERUR #### Drneybaufk7212 [place] [address]Dr. Slick Broderick IRON AND TIBCon 12-12-2021 % SATURATION 7.0 % Normal The Comment on above: Performed By: #### B 12FOL, FETIBC #### Bcwmtjwvqu3849 [place] [address]Dr. Slick Broderick Iron [Mass/Vol] 18.0 ug/dL Critically low 50.0-170.0 [facility] Comment on above: Performed By: #### B 12FOL, FETIBC #### Vcizizcdyx929[address] [place], [place] [address]Dr. Slick Broderick TIBC DIRECT 257.0 ug/dL Normal 250.0-450.0 [facility] Comment on above: Performed By: #### B 12FOL, FETIBC #### Qjqiwwzsco307[address] [place], [place] [address]Dr. Slick Broderick LACTATE/LACTIC ACIDon 2021 Lactate [Moles/Vol] 0.7 mmol/L Normal 0.4-1.9 The [facility] Comment on above: Performed By: #### L ACT #### Itfwxshjzx153454 [address] [place], [place] [address]Dr. Slick Broderick OCC BLD IMMUNO SCREENon OCCULT BLOOD Negative Normal NEGATIVE The Comment on above: Performed By: #### O BSCRN #### Typstlnoxf511[address] [place], [place] [address]Dr. Slick Broderick PROF 14(COMP METB)on 022 Albumin [Mass/Vol] 2.6 g/dL Critically low 3.4-5.0 [facility] Comment on above: Performed By: #### B MANAGER BRIDGE, CRP, CMP #### Jadsxlrurx3044 [place] [address]Dr. Slick Broderick Albumin/Globulin [Mass ratio] 0.7 {ratio} Normal [facility] Comment on above: Performed By: #### B MANAGER BRIDGE, CRP, CMP #### Deogoscxgn9016 [place] [address]Dr. Slick Broderick ALP [Catalytic activity/Vol] 105 U/L Normal 46-116 [facility] Comment on above: Performed By: #### B MANAGER BRIDGE, CRP, CMP #### Pxtsxasnbl3311[address] [place], [place] [address]Dr. Slick Broderick ALT [Catalytic activity/Vol] 16 U/L Normal 14-59 [facility] Comment on above: Performed By: #### B MANAGER BRIDGE, CRP, CMP #### Vnvhmnyklp1405[address] [place], [place] [address]Dr. Slick Broderick Anion gap [Moles/Vol] 11.7 mmol/L Normal [facility] Comment on above: Performed By: #### B MANAGER BRIDGE, CRP, CMP #### Meoucquvwo195[address] [place], [place] [address]Dr. Slick Broderick AST [Catalytic activity/Vol] 11 U/L Critically low 15-37 [facility] Comment on above: Performed By: #### B MANAGER BRIDGE, CRP, CMP #### Rokczhdpwu329[address] [place], [place] [address]Dr. Slick Broderick Bilirubin [Mass/Vol] 0.3 mg/dL Normal 0.2-1.0 [facility] Comment on above: Performed By: #### B MANAGER BRIDGE, CRP, CMP #### Hdgfktlujz601[address] [place], [place] [address]Dr. Slick Broderick Calcium [Mass/Vol] 7.8 mg/dL Critically low 8.5-10.1 [facility] Comment on above: Performed By: #### B MANAGER BRIDGE, CRP, CMP #### Pnqbdsljcf4533 [place] [address]Dr. Slick Broderick Chloride [Moles/Vol] 105 mmol/L Normal 98-107 [facility] Comment on above: Performed By: #### B MANAGER BRIDGE, CRP, CMP #### Mlfgxyhxzz459[address] [place], [place] [address]Dr. Slick Broderick CO2 [Moles/Vol] 24.2 mmol/L Normal 21.0-32.0 [facility] Comment on above: Performed By: #### B MANAGER BRIDGE, CRP, CMP #### Azkbprcsts465[address] [place], [place] [address]Dr. Slick Broderick Creatinine [Mass/Vol] 1.96 mg/dL Critically high 0.55-1.02 [facility] Comment on above: Performed By: #### B MANAGER BRIDGE, CRP, CMP #### Graznmwtal734[address] [place], [place] [address]Dr. Slick Broderick EGFR-AF TONGAN 30 mL/min/1.73m2 Critically low >=60 [facility] Comment on above: Performed By: #### B MANAGER BRIDGE, CRP, CMP #### Htnirzokpw514[address] [place], [place] [address]Dr. Slick Broderick EGFR-NON AF TONGAN 25 mL/min/1.73m2 Critically low >=60 [facility] Comment on above: Performed By: #### B MANAGER BRIDGE, CRP, CMP #### Inxiwybyma670[address] [place], [place] [address]Dr. Slick Broderick Globulin (S) [Mass/Vol] 3.8 g/dL Normal T [facility] Comment on above: Performed By: #### B MANAGER BRIDGE, CRP, CMP #### Hcyrhzuzdt6801[address] [place], [place] [address]Dr. Slick Broderick Glucose [Mass/Vol] 91 mg/dL Normal 74-106 [facility] Comment on above: Performed By: #### B MANAGER BRIDGE, CRP, CMP #### Xqkuzlxhip468254 [address] [place], [place] [address]Dr. Slick Broderick Potassium [Moles/Vol] 4.9 mmol/L Normal 3.5-5.1 The Comment on above: Performed By: #### B MANAGER BRIDGE, CRP, CMP #### Cojczajgur3352 [place] [address]Dr. Slick Broderick Protein [Mass/Vol] 6.4 g/dL Normal 6.4-8.2 The [facility] Comment on above: Performed By: #### B MANAGER BRIDGE, CRP, CMP #### Tltrjawtyz165[address] [place], [place] [address]Dr. Slick Broderick Sodium [Moles/Vol] 136 mmol/L Normal 136-145 [facility] Comment on above: Performed By: #### B MANAGER BRIDGE, CRP, CMP #### Enlysgymyy814654 [address] [place], [place] [address]Dr. Slick Broderick Urea nitrogen [Mass/Vol] 32.0 mg/dL Critically high 7.0-18.0 The Comment on above: Performed By: #### B MANAGER BRIDGE, CRP, CMP #### Hzkzkctuna9995[address] [place], [place] [address]Dr. Slick Broderick Urea nitrogen/Creatinine [Mass ratio] 16.3 mg/mg Normal The Comment on above: Performed By: #### B MANAGER BRIDGE, CRP, CMP #### Furzsclvea6764[address] [place], [place] [address]Dr. Slick Broderick TYPE AND SCREENon 12-12-2021 TYPE AND SCREEN Negative Normal [facility] Comment on above: Performed By: #### T NS #### Vopodqerjt224[address] [place], [place] [address]Dr. Slick Davie URINE MICROSCOPIC ONLYon BACTERIA SMALL Abnormal NONE SEEN The Comment on above: Performed By: #### U MICRO, ERUR #### Fdhbbnhyii228[address] [place], [place] [address]Dr. Slick Davie Bacteria identified Cx Nom (U) INDICATED Normal The Comment on above: Performed By: #### U MICRO, ERUR #### Ckyykgtsgh5764[address] [place], [place] [address]Dr. Slick Broderick CAST NONE SEEN Normal NONE SEEN The Comment on above: Performed By: #### U MICRO, ERUR #### Chasyjlbbm4153 [place] [address]Dr. Slick Broderick Crystals LM Nom (Urine sed) NONE SEEN Normal NONE SEEN The Comment on above: Performed By: #### U MICRO, ERUR #### Gxqyvetwfq1270 [place] [address]Dr. Slick Broderick Epithelial cells LM Ql (Urine sed) MANY Abnormal NONE SEEN /RARE The Comment on above: Performed By: #### U MICRO, ERUR #### Htwtqlyrwx47[address] [place], [place] [address]Dr. Slick Broderick MUCOUS TRACE Abnormal NONE SEEN The Comment on above: Performed By: #### U MICRO, ERUR #### Qcsbhmgqbn[address] [place], [place] [address]Dr. Slick Broderick RBC 0-2 Normal 0-2 The Comment on above: Performed By: #### U MICRO, ERUR #### Lxwberbiew[address] [place], [place] [address]Dr. Slick Broderick WBC 2-5 Abnormal NONE SEEN The Comment on above: Performed By: #### U MICRO, ERUR #### Mxeuqzfprp185[address] [place], [place] [address]Dr. Slick Broderick VIT B12 AND FOLATEon 022 Cobalamin (Vitamin B12) [Mass/Vol] 753.0 pg/mL Normal 193.0-986.0 [facility] Comment on above: Performed By: #### B 12FOL, FETIBC #### Kxkigmloml6[address] [place], [place] [address]Dr. Slick Broderick FOLATE 20.20 ng/mL Normal 8.60-58.90 [facility] Comment on above: Performed By: #### B 12FOL, FETIBC #### Bbjjcuyhwu6738 [place] [address]Dr. Slick Broderick XR CHEST 1 Von 12-12-2021 XR CHEST 1 V Normal The XR KNEE LT 3Von 12-12-2021 XR KNEE LT 3V Normal The [facility] PROF CHEM 8 (BAS METB)on Anion gap [Moles/Vol] 11.4 mmol/L Normal [facility] Comment on above: Performed By: #### B MP #### Ifxcecakzu2282 [place] [address]Dr. Slick Broderick Calcium [Mass/Vol] 7.4 mg/dL Critically low 8.5-10.1 [facility] Comment on above: Performed By: #### B MP #### Ucomqwqgjs[address] [place], [place] [address]Dr. Slick Broderick Chloride [Moles/Vol] 109 mmol/L Critically high 98-107 [facility] Comment on above: Performed By: #### B MP #### [id number] [place], [place] [address]Dr. Slick Broderick CO2 [Moles/Vol] 26.6 mmol/L Normal 21.0-32.0 [facility] Comment on above: Performed By: #### B MP #### Ddbxlxdbow[address] [place], [place] [address]Dr. Slick Broderick Creatinine [Mass/Vol] 1.16 mg/dL Critically high 0.55-1.02 [facility] Comment on above: Performed By: #### B MP #### [id number] [place], [place] [address]Dr. Slick Broderick EGFR-AF TONGAN 56 mL/min/1.73m2 Critically low >=60 The Comment on above: Performed By: #### B MP #### Ppjacshrvc[address] [place], [place] [address]Dr. Slick Broderick EGFR-NON AF TONGAN 46 mL/min/1.73m2 Critically low >=60 The Comment on above: Performed By: #### B MP #### Rbgbvosm[address] [place], [place] [address]Dr. Slick Broderick Glucose [Mass/Vol] 128 mg/dL Critically high 74-[address] [facility] Comment on above: Performed By: #### B MP #### [address] [place] [address]Dr. Meaganwendie Davie Potassium [Moles/Vol] 5.0 mmol/L Normal 3.5-5.1 [facility] Comment on above: Performed By: #### B MP #### Zcacacyiot[address] [place] [address]Dr. Slick Broderick Sodium [Moles/Vol] 142 mmol/L Normal 136-145 [facility] Comment on above: Performed By: #### B MP #### [id number] [place] [address]Dr. Meaganwendie Davie Urea nitrogen [Mass/Vol] 22.0 mg/dL Critically high 7.0-18.0 [facility] Comment on above: Performed By: #### B MP #### Scktewrupl[address] [place], [place] [address]Dr. Slick Broderick Urea nitrogen/Creatinine [Mass ratio] 19.0 mg/mg Normal [facility] Comment on above: Performed By: #### B MP #### Zvariwdbcg[address] [place], [place] [address]Dr. Slick Davie XR TIB_FIB LT 2Von 2 XR TIB_FIB LT 2V Normal [facility] CT CSPINE WO CONon 2 CT CSPINE WO CON Normal [facility] CT HEAD WO CONon 11-29-2021 CT HEAD WO CON Normal [facility] XR lumbar spine AP/LAT/FLX/E XTon 10-06-2021 XR lumbar spine AP/LAT/FLX/EXT [facility] [employer] Other XR lumbar spine AP/LAT/FLX/EXT [facility] [employer] Other XR lumbar spine AP/LAT/FLX/EXT [address] [place] [address] [employer] Other XR lumbar spine AP/LAT/FLX/[place] [address] [employer] Other XR lumbar spine AP/LAT/FLX/EXT XRay Report [employer] Other XR lumbar spine AP/LAT/FLX/EXT Signed [facility] Other XR lumbar spine AP/LAT/FLX/EXT Patient: Linda Nascimento MR#: [id number] [facility] Other XR lumbar spine AP/LAT/FLX/EXT 840 [facility] Other XR lumbar spine AP/LAT/FLX/EXT : 1950 Acct:[id number] [facility] Other XR lumbar spine AP/LAT/FLX/EXT Age/Sex: 71 / F ADM Date: 10/06/21 [facility] Other XR lumbar spine AP/LAT/FLX/EXT Loc: [facility]XD Room: Type: [facility] [employer] Other XR lumbar spine AP/LAT/FLX/EXT Attending Dr: Gunnar Fernandez DO [employer] Other XR lumbar spine AP/LAT/FLX/EXT Ordering Provider: Gunnar Fernandez DO [facility] Other XR lumbar spine AP/LAT/FLX/EXT Date of Service: 10/06/21 [facility] Other XR lumbar spine AP/LAT/FLX/EXT XR/XR lumbar spine AP/LAT/FLX/EXT: Lumbar pain [employer] Other XR lumbar spine AP/LAT/FLX/EXT Copies to: Gunnar Fernandez DO [facility] Other XR lumbar spine AP/LAT/FLX/EXT Lumbar spine 10/06/2021. [employer] Other XR lumbar spine AP/LAT/FLX/EXT CLINICAL DATA: Low back pain with radiation to the buttocks. [facility] Other XR lumbar spine AP/LAT/FLX/EXT FINDINGS: 4 standing views of the lumbar spine were obtained including lateral views in the [employer] Other XR lumbar spine AP/LAT/FLX/EXT neutral, flexion, and extension positions. [employer] Other XR lumbar spine AP/LAT/FLX/EXT There is grade 2 spondylolisthesis measuring 17 mm at L4-L5. There is grade 1 spondylolisthesis [facility] Other XR lumbar spine AP/LAT/FLX/EXT measuring 8 mm at the lumbosacral junction. There is mild anterior malalignment of L3 on L4. Overall [employer] Other XR lumbar spine AP/LAT/FLX/EXT vertebral alignment does not significantly change with flexion or extension. There are disc space [employer] Other XR lumbar spine AP/LAT/FLX/EXT narrowing and facet arthritis in the lower lumbar spine. [facility] Other XR lumbar spine AP/LAT/FLX/EXT XR/XR lumbar spine AP/LAT/FLX/EXT [facility] Other XR lumbar spine AP/LAT/FLX/EXT IMPRESSION: Multilevel spondylolisthesis. No instability with flexion or extension. Disc space [facility] Other XR lumbar spine AP/LAT/FLX/EXT Impression dictated by: Marin Haines Jr., M.D.10/06/2021 4:07 PM [facility] Other XR lumbar spine AP/LAT/FLX/EXT Dictation Location: [place] [address] [facility] Other XR lumbar spine AP/LAT/FLX/EXT Transcribed By: ROLF 10/06/21 1607 [facility] Other XR lumbar spine AP/LAT/FLX/EXT Dictated By: Marin Haines Jr, MD 10/06/21 1600 [facility] Other XR lumbar spine AP/LAT/FLX/EXT Signed By: [facility] Other XR lumbar spine AP/LAT/FLX/EXT 10/06/21 1607 [facility] Other BASIC METABOLIC PANELon 11-1 Calcium [Mass/Vol] 8.2 mg/dL Low 8.6-10.3 [facility] Comment on above: Order Comment: No: D o not add to previous draw Performed By: #### 0 0071 ####[facility] [place] [address], [facility] Chloride [Moles/Vol] 106 mmol/L Normal 98-107 [facility] Comment on above: Order Comment: No: D o not add to previous draw Performed By: #### 0 0071 ####[facility] [place] [address], [facility] CO2 [Moles/Vol] 23 mmol/L Normal 21-31 [facility] Comment on above: Order Comment: No: D o not add to previous draw Performed By: #### 0 0071 ####[facility] [place] [address], [facility] Creatinine [Mass/Vol] 0.98 mg/dL Normal 0.60-1.20 [facility] Comment on above: Order Comment: No: D o not add to previous draw Performed By: #### 0 0071 ####[facility] [place] [address], [facility] eGFR- non- 56 ml/min/1.73sq m Abnormal >60 [facility] Comment on above: Order Comment: No: D o not add to previous draw Result Comment: Calc ulation may not be valid for patients over 70 years Performed By: #### 0 0071 ####[facility] [place] [address], [facility] GFR/1.73 sq M.predicted among blacks MDRD (S/P/Bld) [Vol rate/Area] mL/min/{1.73_m2} Normal >60 [facility] Comment on above: Order Comment: No: D o not add to previous draw Result Comment: Calc ulation may not be valid for patients over 70 years Performed By: #### 0 0071 ####[facility] [place] [address], [facility] Glucose [Mass/Vol] 104 mg/dL High 70-100 The [facility] Comment on above: Order Comment: No: D o not add to previous draw Performed By: #### 0 0071 ####[facility] [place] [address], [facility] Potassium [Moles/Vol] 4.5 mmol/L Normal 3.5-5.1 [facility] Comment on above: Order Comment: No: D o not add to previous draw Performed By: #### 0 0071 ####[facility] [place] [address], [facility] Sodium [Moles/Vol] 136 mmol/L Normal 136-145 [facility] Comment on above: Order Comment: No: D o not add to previous draw Performed By: #### 0 0071 ####[facility] [place] [address], [facility] Urea nitrogen [Mass/Vol] 14 mg/dL Normal 7-25 [facility] Comment on above: Order Comment: No: D o not add to previous draw Performed By: #### 0 0071 ####[facility] [place] [address], [facility] HEMATOCRITon 04-28-2021 Hematocrit (Bld) [Volume fraction] 27.6 % Low 36.0-45.0 [facility] Comment on above: Order Comment: No: D o not add to previous draw Performed By: #### 5 7307, 72554 #### [facility] [address] [facility]. [address] HEMOGLOBINon 04-28-2021 Hemoglobin (Bld) [Mass/Vol] 8.6 g/dL Low 12.0-15.0 [facility] Comment on above: Order Comment: No: D o not add to previous draw Performed By: #### 5 7307, [id number] #### [facility] [address] [facility]. [address] CHEST AND LATERALon 04-27-20 CHEST AND LATERAL [facility] Department of Radiology [address] [place] [address] Patient Name: LINDA NASCIMENTO : 1950 Sex: F Age: Race: White Pt. Location: [id number] Patient Status: I Ordered Date: 04/27/2021 7:00:00 [...] leads. Electronically signed: Dwight Davila. Transcribed by: [email or web address], User Resident: Electronically Signed by: DWIGHT DAVILA @ 04/27/2021 10:35 AM Normal [facility] Comment on above: Order Comment: No: D o not add to previous draw BASIC METABOLIC PANELon - Calcium [Mass/Vol] 8.7 mg/dL Normal 8.6-10.3 [facility] Comment on above: Order Comment: No: D o not add to previous draw Performed By: #### 0 0071 ####[facility] [place] [address], [facility] Chloride [Moles/Vol] 103 mmol/L Normal 98-107 [facility] Comment on above: Order Comment: No: D o not add to previous draw Performed By: #### 0 0071 ####[facility] [place] [address], [facility] CO2 [Moles/Vol] 24 mmol/L Normal 21-31 The [facility] Comment on above: Order Comment: No: D o not add to previous draw Performed By: #### 0 0071 ####[facility] [place] [address], [facility] Creatinine [Mass/Vol] 1.05 mg/dL Normal 0.60-1.20 [facility] Comment on above: Order Comment: No: D o not add to previous draw Performed By: #### 0 0071 ####[facility] [place] [address], [facility] eGFR- non- 51 ml/min/1.73sq m Abnormal >60 [facility] Comment on above: Order Comment: No: D o not add to previous draw Result Comment: Calc ulation may not be valid for patients over 70 years Performed By: #### 0 0071 ####[facility] [place] [address], [facility] GFR/1.73 sq M.predicted among blacks MDRD (S/P/Bld) [Vol rate/Area] mL/min/{1.73_m2} Normal >60 [facility] Comment on above: Order Comment: No: D o not add to previous draw Result Comment: Calc ulation may not be valid for patients over 70 years Performed By: #### 0 0071 ####[facility] [place] [address], [facility] Glucose [Mass/Vol] 107 mg/dL High 70-100 The [facility] Comment on above: Order Comment: No: D o not add to previous draw Performed By: #### 0 0071 ####[facility] [place] [address], [facility] Potassium [Moles/Vol] 4.6 mmol/L Normal 3.5-5.1 [facility] Comment on above: Order Comment: No: D o not add to previous draw Performed By: #### 0 0071 ####[facility] [place] [address], [facility] Sodium [Moles/Vol] 134 mmol/L Low 136-145 [facility] Comment on above: Order Comment: No: D o not add to previous draw Performed By: #### 0 0071 ####[facility] Urea nitrogen [Mass/Vol] 21 mg/dL Normal 7-25 [facility] Comment on above: Order Comment: No: D o not add to previous draw Performed By: #### 0 0071 ####[facility] [place] [address], [facility] CBC W/DIFFon 04-26-2021 ABS IMM GRANS 0.0 10*3/uL Normal 0.0-0.2 The [facility] Comment on above: Order Comment: No: D o not add to previous draw Performed By: #### 5 0103 #### [facility] [address] [place] [address], [facility] ABS NEUTROPHILS 4.8 10*3/uL Normal 1.6-7.6 The [facility] Comment on above: Order Comment: No: D o not add to previous draw Performed By: #### 5 0103 #### [facility] [address] [facility] [place] [address], [facility] Basophils (Bld) [#/Vol] 0.0 10*3/uL Normal 0.0-0.2 [facility] Comment on above: Order Comment: No: D o not add to previous draw Performed By: #### 5 3 #### [facility] [address] [facility] [place] [address], [facility] Basophils/100 WBC (Bld) 0.6 % Normal 0.0-1.0 [facility] Comment on above: Order Comment: No: D o not add to previous draw Performed By: #### 5 0103 #### [facility] [address] [facility] [place] [address], [facility] Eosinophils (Bld) [#/Vol] 0.4 10*3/uL Normal 0.0-0.5 The [facility] Comment on above: Order Comment: No: D o not add to previous draw Performed By: #### 5 3 #### [facility] [address] [facility] [address], [facility] Eosinophils/100 WBC (Bld) 6.0 % Normal 0.0-6.0 [facility] Comment on above: Order Comment: No: D o not add to previous draw Performed By: #### 5 0103 #### [facility] [address] [place] [address], [facility] Erythrocyte distribution width (RBC) [Ratio] 13.1 % Normal 11.5-15.0 [facility] Comment on above: Order Comment: No: D o not add to previous draw Performed By: #### 5 0103 #### [facility] [address] [facility] [place] [place] [address], [facility] Hematocrit (Bld) [Volume fraction] 27.8 % Low 36.0-45.0 The [facility] Comment on above: Order Comment: No: D o not add to previous draw Performed By: #### 5 0103 #### [facility] [address] [place] [id number], [facility] Hemoglobin (Bld) [Mass/Vol] 9.0 g/dL Low 12.0-15.0 [facility] Comment on above: Order Comment: No: D o not add to previous draw Performed By: #### 5 0103 #### [facility] [address] [facility] [place] [address], [facility] IMMATURE GRANS 0.3 % Normal 0.0-1.0 The [facility] Comment on above: Order Comment: No: D o not add to previous draw Performed By: #### 5 0103 #### [facility] [address] [facility] [place] [id number], [facility] Lymphocytes (Bld) [#/Vol] 0.7 10*3/uL Low 1.2-4.0 The [facility] Comment on above: Order Comment: No: D o not add to previous draw Performed By: #### 5 0103 #### [facility] [address] Lymphocytes/100 WBC (Bld) 9.8 % Low 20.0-45.0 The [facility] Comment on above: Order Comment: No: D o not add to previous draw Performed By: #### 5 0103 #### [facility] [address] [facility] [place] [address], [facility] MCH (RBC) [Entitic mass] 33.5 pg High 27.0-33.0 The [facility] Comment on above: Order Comment: No: D o not add to previous draw Performed By: #### 5 0103 #### [facility] [address] [place] [address], [facility] MCHC (RBC) [Mass/Vol] 32.4 g/dL Normal 32.0-35.0 The [facility] Comment on above: Order Comment: No: D o not add to previous draw Performed By: #### 5 0103 #### [facility] [address] [facility] [place] [address], [facility] MCV (RBC) [Entitic vol] 103.3 fL High 82.0-98.0 T he [facility] Comment on above: Order Comment: No: D o not add to previous draw Performed By: #### 5 0103 #### [facility] [address] [place] [address], [facility] Monocytes (Bld) [#/Vol] 0.7 10*3/uL Normal 0.1-1.0 The [facility] Comment on above: Order Comment: No: D o not add to previous draw Performed By: #### 5 0103 #### [facility] [address] [place] [address], [facility] MONOS 10.4 % Normal 5.0-12.0 The [facility] Comment on above: Order Comment: No: D o not add to previous draw Performed By: #### 5 3 #### [facility] [address] [place] [address], [facility] Neutrophils/100 WBC (Bld) 72.9 % High 40.0-72.0 The [facility] Comment on above: Order Comment: No: D o not add to previous draw Performed By: #### 5 0103 #### [facility] [address] [place] [address], [place] Nucleated RBC/100 WBC (Bld) [Ratio] 0 % Normal 0-0 The [facility] Comment on above: Order Comment: No: D o not add to previous draw Performed By: #### 5 0103 #### [facility] [address] [place] [address], [facility] PLAT CNT 213 10*3/uL Normal 150-400 The [facility] Comment on above: Order Comment: No: D o not add to previous draw Performed By: #### 5 0103 #### [facility] [address] [place] [id number], [facility] RBC (Bld) [#/Vol] 2.69 10*6/uL Low 3.80-5.00 The [facility] Comment on above: Order Comment: No: D o not add to previous draw Performed By: #### 5 0103 #### [facility] [address] [place] [address], [place] WBC (Bld) [#/Vol] 6.62 10*3/uL Normal 4.00-10.60 The [facility] Comment on above: Order Comment: No: D o not add to previous draw Performed By: #### 5 0103 #### [facility] [address] [place] [id number], [facility] Cardiovascular Lab Reporton 04-26-2021 Cardiovascular Lab Report [place] [facility] MR #: [id number] Department of Physician: Enoch Frankel MD Medicine Service Date: 04/26/2021 Division of Birthdate: 1950 Cardiology Room #: [id number] Adult Cardiovascular Services [facility] [address] [place], [place] [address] Cardiovascular Laboratory Report PACEMAKER IMPLANT PROCEDURE NOTE [...] using modified seldinger technique using a 5 Japanese micro-puncture needle on two occasions and 0.35 wires were placed. Local infiltration of 1% Lidocaine was performed, and an incision was created in the left upper chest. Dissection was then performed using cautery down to the fascial plane above the muscle and a small pocket was created for the device. 6 Japanese Safesheaths were placed over the wire. An active fixation [employer] pacing lead was then delivered through the 6Fsheath to the right ventricle. After confirmation of lead position on orthogonal views (GONZALES and LEYDI) to confirm septal position, the screw was activated, and the lead was placed in the right ventricular mid cavity towards the septum. After confirmation of good sensing parameters, injury pattern and pacing thresholds, 10V pacing was done and no diaphragmatic stimulation was noted. It was then secured in the pocket using three 1-0 Silk sutures. Then an active fixation [employer] lead was delivered through the 6Fsheath to the right atrial appendage. After confirmation of lead position on orthogonal views (GONZALES and LEYDI), the screw was activated. RA lead was [...] Device info: [employer] Edora Model# 8DRT Serial# [id number] RA lead: Model# [employer] Solia S53 Serial# [id number] Sensin.9mV Threshold: 1.1V@0.5ms Impedance: 429 Ohms RV lead: Model (more content not included)... Normal The [facility] BASIC METABOLIC PANELon 11-1 Calcium [Mass/Vol] 8.6 mg/dL Normal 8.6-10.3 [facility] Comment on above: Order Comment: No: D o not add to previous draw Performed By: #### 0 0071 ####[facility] [place] [address], [facility] Chloride [Moles/Vol] 101 mmol/L Normal 98-107 [facility] Comment on above: Order Comment: No: D o not add to previous draw Performed By: #### 0 0071 ####[facility] [place] [address], [place] CO2 [Moles/Vol] 24 mmol/L Normal 21-31 [facility] [place] [facility] Comment on above: Order Comment: No: D o not add to previous draw Performed By: #### 0 0071 ####[facility] [place] [address], [facility] Creatinine [Mass/Vol] 1.36 mg/dL High 0.60-1.20 [facility] Comment on above: Order Comment: No: D o not add to previous draw Performed By: #### 0 0071 ####[facility] [place] [address], [facility] eGFR- 46 ml/min/1.73sq m Abnormal >60 [facility] Comment on above: Order Comment: No: D o not add to previous draw Result Comment: Calc ulation may not be valid for patients over 70 years Performed By: #### 0 0071 ####[facility] [place] [address], [facility] eGFR- non- 39 ml/min/1.73sq m Abnormal >60 [facility] Comment on above: Order Comment: No: D o not add to previous draw Result Comment: Calc ulation may not be valid for patients over 70 years Performed By: #### 0 0071 ####[facility] [place] [address], [place] Glucose [Mass/Vol] 98 mg/dL Normal 70-100 The [facility] Comment on above: Order Comment: No: D o not add to previous draw Performed By: #### 0 0071 ####[facility] [place] [address], [facility] Potassium [Moles/Vol] 4.4 mmol/L Normal 3.5-5.1 The [facility] Comment on above: Order Comment: No: D o not add to previous draw Performed By: #### 0 0071 ####[facility] [place] [address], [facility] Sodium [Moles/Vol] 132 mmol/L Low 136-145 [facility] Comment on above: Order Comment: No: D o not add to previous draw Performed By: #### 0 0071 ####[facility] [place] [address], [facility] Urea nitrogen [Mass/Vol] 22 mg/dL Normal 7-25 [facility] Comment on above: Order Comment: No: D o not add to previous draw Performed By: #### 0 0071 ####[facility] [id number], [facility] HEMATOCRITon 04-25-2021 Hematocrit (Bld) [Volume fraction] 28.3 % Low 36.0-45.0 The [facility] Comment on above: Order Comment: No: D o not add to previous draw Performed By: #### 5 7307, 45444 #### [facility] [address] [place] [address], [place] HEMOGLOBINon 04-25-2021 Hemoglobin (Bld) [Mass/Vol] 9.0 g/dL Low 12.0-15.0 [facility] Comment on above: Order Comment: No: D o not add to previous draw Performed By: #### 9 2227, 05396 #### [facility] [address] BASIC METABOLIC PANELon 11-1 Calcium [Mass/Vol] 8.8 mg/dL Normal 8.6-10.3 [facility] Comment on above: Order Comment: No: D o not add to previous draw Performed By: #### 1 69, 43031 ####[facility] [place] [address], [facility] Chloride [Moles/Vol] 101 mmol/L Normal 98-107 [facility] Comment on above: Order Comment: No: D o not add to previous draw Performed By: #### 1 69, 12883 ####[facility] [place] [address], [facility] CO2 [Moles/Vol] 26 mmol/L Normal 21-31 [facility] [place] [facility] Comment on above: Order Comment: No: D o not add to previous draw Performed By: #### 1 69, 64723 ####[facility] [place] [address], [facility] Creatinine [Mass/Vol] 1.17 mg/dL Normal 0.60-1.20 [facility] Comment on above: Order Comment: No: D o not add to previous draw Performed By: #### 1 69, 56414 ####[facility] eGFR- 55 ml/min/1.73sq m Abnormal >60 The [facility] Comment on above: Order Comment: No: D o not add to previous draw Result Comment: Calc ulation may not be valid for patients over 70 years Performed By: #### 1 69, 75823 ####[facility] [place] [address], [facility] eGFR- non- 45 ml/min/1.73sq m Abnormal >60 The [facility] Comment on above: Order Comment: No: D o not add to previous draw Result Comment: Calc ulation may not be valid for patients over 70 years Performed By: #### 1 69, 30389 ####[facility] [facility] [place] [address], [facility] Glucose [Mass/Vol] 102 mg/dL High 70-100 The [facility] Comment on above: Order Comment: No: D o not add to previous draw Performed By: #### 1 69, 06552 ####[facility] [facility] [place] [address], [facility] Potassium [Moles/Vol] 4.5 mmol/L Normal 3.5-5.1 The [facility] Comment on above: Order Comment: No: D o not add to previous draw Performed By: #### 1 69, 85592 ####[facility] [facility] [place] [address], [facility] Sodium [Moles/Vol] 133 mmol/L Low 136-145 The [facility] Comment on above: Order Comment: No: D o not add to previous draw Performed By: #### 1 69, 79605 ####[facility] [facility] [place] [address], [facility] Urea nitrogen [Mass/Vol] 20 mg/dL Normal 7-25 The [facility] Comment on above: Order Comment: No: D o not add to previous draw Performed By: #### 1 69, 37360 ####[facility] [facility] [place] [address], [facility] HEMOGLOBINon 04-24-2021 Hemoglobin (Bld) [Mass/Vol] 10.0 g/dL Low 12.0-15.0 The [facility] Comment on above: Order Comment: Yes: Add to Previous draw if able NEEDS DRAWN. NO LAV TUBE FROM AM LABS Performed By: #### 9 2089 #### [facility] [address] [place] [id number], [facility] MAGNESIUM BLOODon 04-24-2021 Magnesium [Mass/Vol] 2.1 mg/dL Normal 1.9-2.7 The [facility] Comment on above: Order Comment: No: D o not add to previous draw Performed By: #### 1 69, 95202 ####[facility] [place] [address], [facility] BASIC METABOLIC PANELon 11-1 Calcium [Mass/Vol] 8.4 mg/dL Low 8.6-10.3 [facility] Comment on above: Order Comment: Unkno wn Performed By: #### 1 0, 97885, 85142 ####[facility] [facility] [place] [address], [facility] Chloride [Moles/Vol] 100 mmol/L Normal 98-107 The [facility] Comment on above: Order Comment: Unkno wn Performed By: #### 1 0, 80650, 78218 ####[facility] [place] [address], [facility] CO2 [Moles/Vol] 25 mmol/L Normal 21-31 The [facility] Comment on above: Order Comment: Unkno wn Performed By: #### 1 0, 38764, 91993 ####[facility] [facility] [place] [address], [facility] Creatinine [Mass/Vol] 1.30 mg/dL High 0.60-1.20 [facility] Comment on above: Order Comment: Unkno wn Performed By: #### 1 0, 35894, 71657 ####[facility] [place] [address], [facility] eGFR- 49 ml/min/1.73sq m Abnormal >60 [facility] Comment on above: Order Comment: Unkno wn Result Comment: Calc ulation may not be valid for patients over 70 years Performed By: #### 1 0, 79253, 91013 ####[facility] eGFR- non- 40 ml/min/1.73sq m Abnormal >60 [facility] Comment on above: Order Comment: Unkno wn Result Comment: Calc ulation may not be valid for patients over 70 years Performed By: #### 1 0070, 09243, 98158 ####[facility] [facility] [place] [address], [facility] Glucose [Mass/Vol] 93 mg/dL Normal 70-100 The [facility] Comment on above: Order Comment: Unkno wn Performed By: #### 1 0070, 96504, 03374 ####[facility] [place] [address], [facility] Potassium [Moles/Vol] 4.1 mmol/L Normal 3.5-5.1 [facility] Comment on above: Order Comment: Unkno wn Performed By: #### 1 0070, 96698, 96526 ####[facility] [place] [address], [facility] Sodium [Moles/Vol] 133 mmol/L Low 136-145 The [facility] Comment on above: Order Comment: Unkno wn Performed By: #### 1 0070, 72006, 91903 ####[facility] Urea nitrogen [Mass/Vol] 20 mg/dL Normal 7-25 [facility] Comment on above: Order Comment: Unkno wn Performed By: #### 1 0070, 16438, 56007 ####[facility] [facility] [place] [address], [facility] CBC W/DIFFon 04-23-2021 ABS IMM GRANS 0.1 10*3/uL Normal 0.0-0.2 The [facility] Comment on above: Order Comment: Unkno wn Performed By: #### 5 0103 #### [facility] [address] [place] [address], [facility] ABS NEUTROPHILS 7.8 10*3/uL High 1.6-7.6 The [facility] Comment on above: Order Comment: Unkno wn Performed By: #### 5 0103 #### [facility] [address] [place] [address], [place] Basophils (Bld) [#/Vol] 0.1 10*3/uL Normal 0.0-0.2 [facility] Comment on above: Order Comment: Unkno wn Performed By: #### 5 0103 #### [facility] [address] [place] [address], [facility] Basophils/100 WBC (Bld) 0.5 % Normal 0.0-1.0 [facility] Comment on above: Order Comment: Unkno wn Performed By: #### 5 3 #### [facility] [address] [place] [address], [facility] Eosinophils (Bld) [#/Vol] 0.4 10*3/uL Normal 0.0-0.5 The [facility] Comment on above: Order Comment: Unkno wn Performed By: #### 5 0103 #### [facility] [address] [place] [address], [facility] Eosinophils/100 WBC (Bld) 3.5 % Normal 0.0-6.0 The [facility] Comment on above: Order Comment: Unkno wn Performed By: #### 5 0103 #### [facility] [address] [place] [address], [place] Erythrocyte distribution width (RBC) [Ratio] 13.2 % Normal 11.5-15.0 [facility] Comment on above: Order Comment: Unkno wn Performed By: #### 5 3 #### [facility] [address] [place] [address], [place] Hematocrit (Bld) [Volume fraction] 29.2 % Low 36.0-45.0 The [facility] Comment on above: Order Comment: Unkno wn Performed By: #### 5 0103 #### [facility] [address] [facility] [place] [address], [facility] Hemoglobin (Bld) [Mass/Vol] 9.3 g/dL Low 12.0-15.0 [facility] Comment on above: Order Comment: Unkno wn Performed By: #### 5 0103 #### [facility] [address] [place] [address], [facility] IMMATURE GRANS 0.6 % Normal 0.0-1.[address] [facility] Comment on above: Order Comment: Unkno wn Performed By: #### 5 3 #### [facility] [address] [facility] [place] [place] [address], [facility] Lymphocytes (Bld) [#/Vol] 0.7 10*3/uL Low 1.2-4.0 The [facility] Comment on above: Order Comment: Unkno wn Performed By: #### 5 3 #### [facility] [address] [facility] [place] [address], [facility] Lymphocytes/100 WBC (Bld) 6.8 % Low 20.0-45.0 The [facility] Comment on above: Order Comment: Unkno wn Performed By: #### 5 3 #### [facility] [address] [facility] [place] [address], [facility] MCH (RBC) [Entitic mass] 33.5 pg High 27.0-33.0 The [facility] Comment on above: Order Comment: Unkno wn Performed By: #### 5 3 #### [facility] [address] [facility] [place] [place] [address], [facility] MCHC (RBC) [Mass/Vol] 31.8 g/dL Low 32.0-35.0 The [facility] Comment on above: Order Comment: Unkno wn Performed By: #### 5 3 #### [facility] [address] [place] [address], [facility] MCV (RBC) [Entitic vol] 105.0 fL High 82.0-98.0 T he [facility] Comment on above: Order Comment: Unkno wn Performed By: #### 5 0103 #### [facility] [address] [place] [address], [facility] Monocytes (Bld) [#/Vol] 1.0 10*3/uL Normal 0.1-1.0 [facility] Comment on above: Order Comment: Unkno wn Performed By: #### 5 0103 #### [facility] [address] [place] [id number], [facility] MONOS 10.0 % Normal 5.0-12.0 The [facility] Comment on above: Order Comment: Unkno wn Performed By: #### 5 3 #### [facility] [address] [facility] [place] [id number], [facility] Neutrophils/100 WBC (Bld) 78.6 % High 40.0-72.0 [facility] Comment on above: Order Comment: Unkno wn Performed By: #### 5 0103 #### [facility] [address] [place] [address], [facility] Nucleated RBC/100 WBC (Bld) [Ratio] 0 % Normal 0-0 [facility] Comment on above: Order Comment: Unkno wn Performed By: #### 5 0103 #### [facility] [address] [place] [address], [facility] PLAT CNT 227 10*3/uL Normal 150-400 The [facility] Comment on above: Order Comment: Unkno wn Performed By: #### 5 3 #### [facility] [address] [place] [address], [facility] RBC (Bld) [#/Vol] 2.78 10*6/uL Low 3.80-5.00 The [facility] Comment on above: Order Comment: Unkno wn Performed By: #### 5 0103 #### [facility] [address] [place] [address], [facility] WBC (Bld) [#/Vol] 9.87 10*3/uL Normal 4.00-10.60 The [facility] Comment on above: Order Comment: Unkno wn Performed By: #### 5 0103 #### [facility] [address] MAGNESIUM BLOODon 04-23-2021 Magnesium [Mass/Vol] 2.1 mg/dL Normal 1.9-2.7 The [facility] Comment on above: Order Comment: Unkno wn Performed By: #### 1 0070, 21037, 89717 ####[facility] [facility] [place] [address], [facility] PHOSPHORUS BLOODon Phosphate [Mass/Vol] 2.8 mg/dL Normal 2.5-5.0 [facility] Comment on above: Order Comment: Unkno wn Performed By: #### 1 0070, 56832, 86528 ####[facility] [facility].[address] APTTon 04-22-2021 aPTT Coag (Bld) [Time] 27.6 s Normal 25.0-35.0 Th e [facility] Comment on above: Order Comment: No: [...] THIS PURPOSE. Performed By: #### 5 7307, 19192 #### [facility] [address] BASIC METABOLIC PANELon 04-12 Calcium [Mass/Vol] 8.8 mg/dL Normal 8.6-10.3 [facility] Comment on above: Order Comment: No: D o not add to previous draw Performed By: #### 4 1000, 80922, 90307, 63947 ####[facility] [place] [address], [facility] Chloride [Moles/Vol] 99 mmol/L Normal 98-107 [facility] Comment on above: Order Comment: No: D o not add to previous draw Performed By: #### 4 1000, 22027, 22120, 68349 ####[facility] [place] [address], [facility] CO2 [Moles/Vol] 27 mmol/L Normal 21-31 [facility] Comment on above: Order Comment: No: D o not add to previous draw Performed By: #### 4 1000, 00001, 67170, 08900 ####[facility] [place] [address], [facility] Creatinine [Mass/Vol] 1.39 mg/dL High 0.60-1.20 [facility] Comment on above: Order Comment: No: D o not add to previous draw Performed By: #### 4 1000, 97779, 45479, 52134 ####[facility] eGFR- 45 ml/min/1.73sq m Abnormal >60 [facility] Comment on above: Order Comment: No: D o not add to previous draw Result Comment: Calc ulation may not be valid for patients over 70 years Performed By: #### 4 1000, 49616, 83544, 94384 ####[facility] [place] [address], [facility] eGFR- non- 37 ml/min/1.73sq m Abnormal >60 [facility] Comment on above: Order Comment: No: D o not add to previous draw Result Comment: Calc ulation may not be valid for patients over 70 years Performed By: #### 4 1000, 38694, 39432, 71300 ####[facility] [facility] [place] [address], [facility] Glucose [Mass/Vol] 91 mg/dL Normal 70-100 The [facility] Comment on above: Order Comment: No: D o not add to previous draw Performed By: #### 4 1000, 13273, 87868, 87029 ####[facility] [facility] [place] [address], [facility] Potassium [Moles/Vol] 4.4 mmol/L Normal 3.5-5.1 The [facility] Comment on above: Order Comment: No: D o not add to previous draw Performed By: #### 4 1000, 68529, 58406, 93275 ####[facility] [facility].[address] Sodium [Moles/Vol] 133 mmol/L Low 136-145 The [facility] Comment on above: Order Comment: No: D o not add to previous draw Performed By: #### 4 1000, 41083, 11233, 41895 ####[facility] [facility].[address] Urea nitrogen [Mass/Vol] 24 mg/dL Normal 7-25 [facility] Comment on above: Order Comment: No: D o not add to previous draw Performed By: #### 4 1000, 95551, 78107, 90273 ####[facility] [facility] [place] [address], [facility] CBC W/DIFFon 04-22-2021 ABS IMM GRANS 0.0 10*3/uL Normal 0.0-0.2 The [facility] Comment on above: Performed By: #### 5 0103 #### [facility] [address] [place] [address], [facility] ABS NEUTROPHILS 5.8 10*3/uL Normal 1.6-7.6 [facility] Comment on above: Performed By: #### 5 0103 #### [facility] [address] [place] [address], [facility] Basophils (Bld) [#/Vol] 0.1 10*3/uL Normal 0.0-0.2 [facility] Comment on above: Performed By: #### 5 0103 #### [facility] [address] [place] [address], [facility] Basophils/100 WBC (Bld) 0.6 % Normal 0.0-1.0 [facility] Comment on above: Performed By: #### 5 0103 #### [facility] [address] [facility] [place] [place] [address], [facility] Eosinophils (Bld) [#/Vol] 0.2 10*3/uL Normal 0.0-0.5 [facility] Comment on above: Performed By: #### 5 0103 #### [facility] [address] [facility] [place] [address], [facility] Eosinophils/100 WBC (Bld) 2.7 % Normal 0.0-6.0 [facility] Comment on above: Performed By: #### 5 0103 #### [facility] [address] [facility]. [address] Erythrocyte distribution width (RBC) [Ratio] 13.0 % Normal 11.5-15.0 [facility] Comment on above: Performed By: #### 5 0103 #### [facility] [address] [facility] [place] [address], [facility] Hematocrit (Bld) [Volume fraction] 29.2 % Low 36.0-45.0 [facility] Comment on above: Performed By: #### 5 3 #### [facility] [address] [place] [address], [facility] Hemoglobin (Bld) [Mass/Vol] 9.6 g/dL Low 12.0-15.0 [facility] Comment on above: Performed By: #### 5 0103 #### [facility] [address] [facility] [place] [address], [facility] IMMATURE GRANS 0.5 % Normal 0.0-1.[address] [facility] Comment on above: Performed By: #### 5 0103 #### [facility] [address] [place] [address], [facility] Lymphocytes (Bld) [#/Vol] 1.1 10*3/uL Low 1.2-4.0 [facility] Comment on above: Performed By: #### 5 0103 #### [facility] [address] [place] [address], [facility] Lymphocytes/100 WBC (Bld) 13.4 % Low 20.0-45.0 [facility] Comment on above: Performed By: #### 5 0103 #### [facility] [address] [facility] [place] [address], [facility] MCH (RBC) [Entitic mass] 33.1 pg High 27.0-33.0 [facility] Comment on above: Performed By: #### 5 0103 #### [facility] [address] [facility] [place] [address], [facility] MCHC (RBC) [Mass/Vol] 32.9 g/dL Normal 32.0-35.0 [facility] Comment on above: Performed By: #### 5 0103 #### [facility] [address] [place] [address], [facility] MCV (RBC) [Entitic vol] 100.7 fL High 82.0-98.0 T will [facility] Comment on above: Performed By: #### 5 3 #### [facility] [address] [place] [address], [facility] Monocytes (Bld) [#/Vol] 0.7 10*3/uL Normal 0.1-1.0 [facility] Comment on above: Performed By: #### 5 0103 #### [facility] [address] [facility] [place] [address], [facility] MONOS 9.1 % Normal 5.0-12.0 [facility] Comment on above: Performed By: #### 5 0103 #### [facility] [address] [facility] [place] [address], [facility] Neutrophils/100 WBC (Bld) 73.7 % High 40.0-72.0 [facility] Comment on above: Performed By: #### 5 0103 #### [facility] [address] [facility] [place] [place] [address], [facility] Nucleated RBC/100 WBC (Bld) [Ratio] 0 % Normal 0-0 [facility] Comment on above: Performed By: #### 5 0103 #### [facility] [address] [facility] [place] [address], [facility] PLAT CNT 234 10*3/uL Normal 150-400 The [facility] Comment on above: Performed By: #### 5 0103 #### [facility] [address] [facility] [place] [address], [facility] RBC (Bld) [#/Vol] 2.90 10*6/uL Low 3.80-5.00 The [facility] Comment on above: Performed By: #### 5 0103 #### [facility] [address] [facility] [place] [address], [facility] WBC (Bld) [#/Vol] 7.81 10*3/uL Normal 4.00-10.60 The [facility] Comment on above: Performed By: #### 5 3 #### [facility] [address] [facility] [place] [address], [facility] FERRITINon 04-22-2021 Ferritin [Mass/Vol] 74 ng/mL Normal 11-307 The [facility] Comment on above: Order Comment: No: D o not add to previous draw Performed By: #### 8 4044, 16051, 23198, 66018, 57091, 96114 ####[facility] [place], [place] [id number] [place] [address] FOLATE SERUMon 04-22-2021 SERUM FOLATE 29.00 ng/mL Normal 6.60-1000.0 0 [facility] Comment on above: Order Comment: No: D o not add to previous draw Result Comment: Norm al range reflects World Health [employer] International Standard Performed By: #### 8 4044, 15390, 73074, 42517, 76367, 48892 ####[facility] [place], [place] [id number] [place] [address] HAPTOGLOBINon 04-22-2021 HAPTOGLOBIN 302 mg/dL High 26-164 [facility] Comment on above: Order Comment: No: D o not add to previous draw Performed By: #### 3 0103 #### [facility] [address] KNEE LEFT 1 OR 2 VWSon 04-22 KNEE LEFT 1 OR 2 VWS [facility] Department of Radiology [address] [place] [address] Patient Name: LINDA NASCIMENTO : 1950 Sex: F Age: Race: White Pt. Location: [id number] Patient Status: I Ordered Date: 04/22/2021 2:30:00 AM Completed Date: 04/22/2021 02:52 AM Requesting Provider: GUNNAR CHRISTIANSON Attending Provider: ROBERTA VELA Report Copy To: Signs & Symptoms: Pain ( specify Location) History: See Comments Comments: evaluate for FX Exam: KNEE LEFT 1 OR 2 [facility] KNEE LEFT 1 OR 2 S 04/22/2021 [...] report. Electronically signed: Boris Jara. Transcribed by: [email or web address], User Resident: NITHIN AGRAY Electronically Signed by: BORIS JARA @ 04/22/2021 03:09 AM I personally read this/these film(s) with this resident Normal [facility] Comment on above: Order Comment: No: D o not add to previous draw KNEE RIGHT 1 OR 2 [facility] 04-12 KNEE RIGHT 1 OR 2 [facility] Department of Radiology [address] [place] [id number] Patient Name: LINDA NASCIMENTO : 1950 Sex: F Age: Race: White Pt. Location: [id number] Patient Status: I Ordered Date: 04/22/2021 2:30:00 AM Completed Date: 04/22/2021 02:52 AM Requesting Provider: GUNNAR CHRISTIANSON Attending Provider: ROBERTA VELA Report Copy To: Signs & Symptoms: Pain ( specify Location) History: See Comments Comments: evaluate for FX Exam: KNEE RIGHT 1 OR 2 S KNEE RIGHT 1 OR 2 VWS 04/22/2021 [...] report. Electronically signed: Boris Jara. Transcribed by: [email or web address], User Resident: NITHIN GARAY Electronically Signed by: BORIS JARA @ 04/22/2021 03:09 AM I personally read this/these film(s) with this resident Normal [facility] Comment on above: Order Comment: No: D o not add to previous draw LDH BLOODon 04-22-2021 LDH 232 Units/L Normal 140-271 [facility] Comment on above: Order Comment: No: D o not add to previous draw Performed By: #### 8 4044, 89213, 05859, 29717, 08661, 85570 ####[facility] [place] [address], [place] LIVER BATTERYon 04-22-2021 Albumin [Mass/Vol] 3.9 g/dL Normal 3.5-5.7 [facility] Comment on above: Order Comment: No: D o not add to previous draw Performed By: #### 5 7307, 51897 #### [facility] [address] [place] [address], [place] ALKALINE PHOSPH 74 IU/L Normal 34-104 [facility] Comment on above: Order Comment: No: D o not add to previous draw Performed By: #### 5 7307, 55546 #### [facility] [address] [place] [address], [place] ALT [Catalytic activity/Vol] 9 U/L Normal 7-52 [facility] Comment on above: Order Comment: No: D o not add to previous draw Performed By: #### 5 7307, 46257 #### [facility] [address] [place] [address], [place] AST [Catalytic activity/Vol] 19 U/L Normal 13-39 [facility] Comment on above: Order Comment: No: D o not add to previous draw Performed By: #### [id number] #### [facility] [address] [place] [address], [place] Bilirubin [Mass/Vol] 0.5 mg/dL Normal 0.3-1.0 [facility] Comment on above: Order Comment: No: D o not add to previous draw Performed By: #### [id number], [id number] #### [facility] [address] [place] [address], [place] Bilirubin.direct [Mass/Vol] 0.1 mg/dL Normal 0.0-0.2 [facility] Comment on above: Order Comment: No: D o not add to previous draw Performed By: #### 5 7307, 84962 #### [facility] [address] [place] [address], [place] Protein [Mass/Vol] 6.5 g/dL Normal 6.0-8.3 The [facility] Comment on above: Order Comment: No: D o not add to previous draw Performed By: #### 5 7307, 23072 #### [facility] [address] [place] [address], [place] MAGNESIUM BLOODon 04-22-2021 Magnesium [Mass/Vol] 2.0 mg/dL Normal 1.9-2.7 The [facility] Comment on above: Order Comment: No: D o not add to previous draw Performed By: #### 4 1000, 02025, 93799, 19654 ####[facility] [place] [address], [facility] PERIPHERAL SMEARon 1 Nucleated RBC/100 WBC (Bld) [Ratio] 0 % Normal 0-0 The [facility] Comment on above: Order Comment: No: D o not add to previous draw Performed By: #### 5 7307, 81144 #### [facility] [address] [place] [address], [place] OTHER PS1 Macrocytic anemia with no significant RBC morphology. Normal The [facility] Comment on above: Order Comment: No: D o not add to previous draw Performed By: #### 5 7307, 36526 #### [facility] [address] [place] [address], [place] OTHER PS2 Check serum B12 and folate. Normal The [facility] Comment on above: Order Comment: No: D o not add to previous draw Performed By: #### 5 7307, 07593 #### [facility] [address] [place] [address], [place] OTHER PS3 Otherwise unremarkable leukocytes and platelets. Normal The [facility] Comment on above: Order Comment: No: D o not add to previous draw Performed By: #### 5 7307, 52117 #### [facility] 3000 [facility]. [address] OTHER PS4 Normal The [facility] Comment on above: Order Comment: No: D o not add to previous draw Result Comment: Chec ked by Mayra Encinas M.D. Performed By: #### 5 7307, 46783 #### [facility] [address] PHOSPHORUS BLOODon 1 Phosphate [Mass/Vol] 3.4 mg/dL Normal 2.5-5.0 The [facility] Comment on above: Order Comment: No: D o not add to previous draw Performed By: #### 5 7307, 83635 #### [facility] 3000 [facility]. [address] PROTHROMBIN TIMEon 1 INR Coag (PPP) [Relative time] 1.01 {INR} Normal 0.91-1.16 The [facility] Comment on above: Order Comment: No: [...] CHEST 1995;108:231S-246S. Performed By: #### 5 7307, 15197 #### [facility] [address] [place] [address], [facility] PT Coag (PPP) [Time] 13.3 s Normal 12.3-14.8 The [facility] Comment on above: Order Comment: No: D o not add to previous draw Result Comment: ALL RESULTS MUST BE INTERPRETED WITH RESPECT TO BLOOD DRAWING ARTIFACT OR DILUTION ERROR OF ANTICOAGULANT AT THE TIME OF SAMPLING. Performed By: #### 5 73, 72696 #### [facility] [address] RETICULOCYTE PANELon 11-11-2 021 ABSOLUTE RETICULOCYTE 0.0711 10*6/uL Normal 0.02 50-0.10 00 [facility] Comment on above: Order Comment: No: D o not add to previous draw Performed By: #### 5 73, 26902 #### [facility] [address] [place] [address], [facility] IMMATURE RETICULOCYTE FRACTION 12.8 % Normal 2.0-16.0 The [facility] Comment on above: Order Comment: No: D o not add to previous draw Performed By: #### 5 73, 29763 #### [facility] [address] [place] [address], [facility] RETIC COUNT 2.37 % High 0.50-1.80 The [facility] Comment on above: Order Comment: No: D o not add to previous draw Performed By: #### 5 7307, 69403 #### [facility] [address] [place] [address], [facility] RETICULOCYTE HEMOGLOBIN 37.5 pg High 28.0-36.0 T will [facility] Comment on above: Order Comment: No: D o not add to previous draw Performed By: #### 5 73, 21830 #### [facility] [address] TIBC- INCLUDES IRONon 2020 FE SATURATION 16 % Low 20-50 [facility] Comment on above: Order Comment: No: D o not add to previous draw Performed By: #### 8 4044, 47753, 65022, 37179, 97847, 98058 ####[facility] Iron [Mass/Vol] 54 ug/dL Normal 50-212 The [facility] Comment on above: Order Comment: No: D o not add to previous draw Performed By: #### 8 4044, 43610, 04714, 81008, 93628, 98546 ####[facility] TIBC 332 mcg/dL Normal 250-450 [facility] Comment on above: Order Comment: No: D o not add to previous draw Performed By: #### 8 4044, 36092, 61203, 78467, 10129, 17517 ####[facility]3000 [facility].[address] UIBC 278 mcg/dL Normal 155-355 [facility] Comment on above: Order Comment: No: D o not add to previous draw Performed By: #### 8 4044, 77680, 62491, 67728, 40794, 16679 ####[facility] TSH3 WITH REFLEX FT4on 04-22 TSH 3RD GENERATION 1.72 uIU/mL Normal 0.34-5.60 [facility] Comment on above: Performed By: #### 8 4044, 22949, 37253, 68304, 79258, 11040 ####[facility] VITAMIN B12on 04-22-2021 Cobalamin (Vitamin B12) [Mass/Vol] 771 pg/mL Normal 180-914 [facility] Comment on above: Order Comment: No: D o not add to previous drawPt using restroom Result Comment: REFE RENCE RANGES: 180-914 pg/mL Normal 145-179 pg/mL Indeterminate <145 pg/mL Deficient Performed By: #### 8 4044, 60041, 03976, 87962, 36864, 47583 ####[facility]3000 [facility] [address] Vital Signs Date Time Vital Sign Value Performing Clinician Lourdesi litmilo 10-06-2021 14:00-0400 Body height 165.1 cm Gunnar Fernandez Other [facility] Other 10-06-2021 14:00-0400 Body mass index (BMI) [Ratio] 40.77 kg/m2 Gunnar Fernandez Other [facility] Other 10-06-2021 14:00-0400 Body weight 111.13 kg Gunnar Fernandez Other [facility] Other Encounters Encounter Date Encounter Type Care Provider Facility Start: 12-31-2024 End: 12-31-2024 ambulatory [facility] Start: 10-21-2024 ambulatory [facility] Start: 10-04-2024 ambulatory [facility] Start: 07-31-2024 End: 07-31-[address] Mehta MD Work Phone: [facility] [address] Work Phone: Start: 07-31-2024 End: 07-31-[address] Mehta MD Work Phone: [facility] Work Phone: Start: 05-21-2024 End: 05-21-2024 ambulatory [facility] Start: 03-20-2023 End: 03-21-2023 ambulatory Ирина Gibson MD Facility:[facility] Start: 01-23-2023 End: 01-24-2023 ambulatory Andchandnius Shonnaas Rossitis Facility:[facility] Start: 01-09-2023 End: 01-10-2023 ambulatory Andchandnius Shalini Hawkinsitis Facility:[facility] Start: 12-12-2022 End: 12-13-2022 ambulatory Andchandnius Shonnaas Rossitis Facility:[facility] Start: 10-25-2022 ambulatory LEÓN DIAS Facred lity:H1 [...] Start: 04-22-2022 End: 04-22-[address] TIMUR Carter Facility:[facility]1 Start: 04-21-2022 End: 04-22-[address] MEHT[address] . Facility:[facility]1 Start: 04-08-2022 End: 04-09-2022 ambulatory LEÓN DIAS Facility:H1 Start: 03-30-2022 End: 03-30-2022 ambulatory Rancho Chamorro Other [facility] Other Start: 03-30-2022 Telephone encounter [facility] [place] Start: 03-28-2022 End: 03-29-[address] MEHT[address] . Facility:H1 Start: 03-27-[address] MEHTA . Facili ty:H1 Start: 03-24-2022 Office outpatient vi sit 25 minutes Rancho Chamorro [facility] [place] Start: 03-24-2022 End: 04-03-2022 ambulatory UNKNOWN PROVIDER [facility] Other Start: 03-16-2022 End: 03-16-2022 ambulatory Rancho Chamorro Other [facility] Other Start: 03-16-2022 Telephone encounter Rancho Hardwick [facility] Start: 03-11-2022 End: 03-12-2022 ambulatory LEÓN Tejada [facility] Facility:H1 Start: 02-18-2022 End: 02-19-2022 ambulatory LEÓN Tejada [facility] Facility:H1 Start: 02-11-2022 End: 02-12-[address] MEHTA . Facility:H1 Start: 01-28-2022 End: 01-29-2022 ambulatory LEÓN Tejada [facility] Facility:H1 Start: 01-11-2022 End: 01-12-[address] MEHT[address] . Facility:H1 Start: 01-04-2022 End: 01-05-2022 ambulatory LEÓN Tejada [facility] Facility:H1 Start: 12-23-2021 End: 12-23-2021 ambulatory Rancho Chamorro Other [facility] Other Start: 12-23-2021 Office outpatient vi sit 25 minutes Rancho Chamorro [facility] [place] Start: 12-20-2021 End: 12-21-2021 ambulatory LEÓN Tejada [facility] Facility:H1 Start: 12-13-2021 End: 12-14-2021 Evaluation and management of inpatient DR AVE MEHTA . Facility:H1 Start: 12-07-2021 Encounter for preprocedural cardiovascular examination LEÓN DIAS [facility] Start: 12-06-2021 End: 12-06-2021 ambulatory LEÓN Tejada [facility] Facility:H1 Start: 12-05-2021 End: 12-05-[address] MEHTA . Facility:H1 Start: 12-02-2021 End: 12-03-2021 ambulatory LEÓN Tejada [facility] Facility:H1 Start: 12-02-2021 End: 12-03-2021 Encounter for preprocedural cardiovascular examination LEÓN Tejada [facility] Facility:H1 Start: 11-30-2021 End: 12-01-2021 ambulatory [facility] Facility:H1 Start: 11-29-2021 End: 11-29-2021 ambulatory MIRNA PARSONS . Facility:H1 Start: 11-17-2021 End: 11-17-2021 ambulatory Rancho Chamorro Other [facility] Other Start: 11-17-2021 Office outpatient vi sit 15 minutes Emilie Perez [facility] Start: 11-17-2021 Telephone encounter Rancho BAKER [facility] [place] Start: 11-04-2021 End: 11-04-2021 ambulatory Rancho Chamorro Other [facility] Other Start: 11-04-2021 Telephone encounter Rancho Hardwick [facility] Start: 11-03-2021 (Procedure) Short Rancho Chamorro [facility] Start: 11-03-2021 End: 11-03-2021 ambulatory Rancho Chamorro Other [facility] Other Start: 11-03-2021 Office outpatient vi sit 25 minutes Emilie Perez [facility] Start: 10-28-2021 End: 10-28-2021 ambulatory Rancho Chamorro Other [facility] Other Start: 10-28-2021 Office outpatient vi sit 25 minutes Rancho Chamorro [facility] [place] Start: 10-07-2021 End: 10-07-2021 ambulatory Gunnar Fernandez Other [facility] Other Start: 10-07-2021 Telephone encounter Gunnar BAKER G [facility] Start: 10-06-2021 End: 10-06-2021 ambulatory Gunnar Fernandez Other [facility] Other Start: 10-06-2021 Office outpatient vi sit 15 minutes Gunnar Rebecca [facility] Start: 09-08-2021 End: 09-08-2021 ambulatory Gunnar Fernandez Other [facility] Other Start: 09-08-2021 Office outpatient vi sit 15 minutes Gunnar Rebecca [facility] Start: 04-22-2021 End: 04-29-2021 Evaluation and management of inpatient ROBERTA DANE Facility:[facility] Procedures Date Procedure Procedure Detail Performing Clinician Start: 12-12-2021 Transfusion of Nonau tologous Red Blood Cells into Peripheral Vein, Percutaneous Approach DR AVE MEHTA . Plan of Treatment Date Care Activity Detail Author Start: 07-31-2024 Aldolase measurement [facility] Start: 07-31-2024 Hemolytic complement CH50 level [facility] Start: 07-31-2024 Hepatitis B core ant ibody measurement [facility] Start: 07-31-2024 [facility] Angiotensin converti ng enzyme [Enzymatic activity/volume] in Serum or Plasma [facility] Chromatin Ab [Units/ volume] in Serum or Plasma [facility] Complement C3 [Mass/ volume] in Serum or Plasma [facility] Complement C4 [Mass/ volume] in Serum or Plasma [facility] Hepatitis B virus hernandez rface Ab [Presence] in Serum [facility] Hepatitis B virus hernandez rface Ag [Presence] in Serum or Plasma by Immunoassay [facility] Hepatitis C virus Ig G Ab [Presence] in Serum or Plasma by Immunoassay [facility] Homogenous nuclear A b pattern [Titer] in Serum [facility] Nuclear Ab [Titer] in Serum [facility] Reagin Ab [Presence] in Serum by RPR [facility] Thyroglobulin Ab [Un its/volume] in Serum or Plasma [facility] Thyroperoxidase Ab [ Units/volume] in Serum or Plasma [facility] Immunizations Immunization Date Immunization Notes Care Provider Fa shawannmarie 07-13-2020 COVID-19 Sarah Heredia (Pfizer) Ave Mehta MD Work Phone: [facility] 06-19-2020 COVID-19 Sarah Heredia (Pfizer) Ave Mehta MD Work Phone: [facility] Payers Date Payer Category Payer Self-pay 2023 Medicaid [id number] 2022 Medicare 2022 Unknown 2002 Medicare [id number] 1959 Medicare [id number] 1959 Self-pay [id number] 1959 Unknown [id number] 1948 Unknown [id number] 2.16.8 40.1.885296.3.579.2.647 1948 Unknown [id number] 2.16. 840.1.965798.3.579.2.732 1948 Unknown [id number] 2.16.84 0.1.492041.3.579.2.593 1948 Unknown [id number] 2.16.84 0.1.288921.3.579.2.593 1948 Unknown [id number] 2.16.84 0.1.405443.3.579.2.593 1948 Unknown [id number] 2.16.84 0.1.917215.3.579.2.593 1948 Unknown [id number] 2.16.84 0.1.258558.3.579.2.593 1948 Unknown [id number] 2.16.84 0.1.474835.3.579.2.593 1948 Unknown [id number] 2.16.84 0.1.059282.3.579.2.593 1948 Unknown [id number] 2.16.84 0.1.662686.3.579.2.593 1948 Unknown [id number] 2.16.84 0.1.068211.3.579.2.593 1948 Unknown [id number] 2.16.84 0.1.156067.3.579.2.593 1948 Unknown [id number] 2.16.84 0.1.952671.3.579.2.593 1948 Unknown [id number] 2.16.84 0.1.796838.3.579.2.593 1948 Unknown [id number] 2.16.84 0.1.900814.3.579.2.593 1948 Unknown [id number] 2.16.84 0.1.268419.3.579.2.593 1948 Unknown [id number] 2.16.84 0.1.109728.3.579.2.593 1948 Unknown [id number] 2.16.84 0.1.982420.3.579.2.593 1948 Unknown [id number] 2.16.84 0.1.124079.3.579.2.593 1948 Unknown [id number] 2.16.84 0.1.390592.3.579.2.593 1948 Unknown [id number] 2.16.84 0.1.479126.3.579.2.593 1948 Unknown [id number] 2.16.84 0.1.489870.3.579.2.593 1948 Unknown [id number] 2.16.84 0.1.983263.3.579.2.593 1948 Unknown [id number] 2.16.84 0.1.297125.3.579.2.593 1948 Unknown [id number] 2.16.84 0.1.830236.3.579.2.593 1948 Unknown [id number] 2.16.84 0.1.221357.3.579.2.593 1948 Unknown [id number] 2.16.84 0.1.337749.3.579.2.593 1948 Unknown [id number] 2.16.84 0.1.595366.3.579.2.593 1948 Unknown [id number] 2.16.84 0.1.835833.3.579.2.593 1948 Unknown [id number] 2.16.84 0.1.299074.3.579.2.593 1948 Unknown [id number] 2.16. 840.1.850085.3.579.2.196 1948 Unknown [id number] 2.16. 840.1.358941.3.579.2.196 1948 Unknown [id number] 2.16. 840.1.820078.3.579.2.196 1948 Unknown [id number] 2.16. 840.1.361873.3.579.2.196 Unknown [id number] 2.16.84 0.1.847571.3.579.2.593 Unknown [facility] Health Claims [id number] Unknown [id number] 2.16.8 40.1.954086.3.579.2.531 Social History Date Type Detail Facility Sex Assigned At [facility] Other Start: 11-07-2021 [facility] Start: 08-01-2024 Sex Female (finding) [facility] Start: 1950 Sex Assigned At Female F [facility] Clinical Notes 04-29-2021 to 12-31-2024 Note Date & Type Note Facility 12-31-2024 Note [place] Electrophysiology Consult Note [place] [facility] Reason for visit: Afib 12/31/24 Patient is here today for a device check and a follow up appointment. Patient states her chest hurts due to fluid in her chest, patient [facility] told her she doesn't have pneumonia. Patient states she does have a cough which is productive and clear in color. Patient denies palpitations, leg swelling. Patient complains of SOB and ELIAS. She has been in A-fib since 10/26/2022 and is currently on Eliquis. EKG 12/31/24 atrial fibrillation 05/21/24 Pt has come for device check [...] mmHg Prior HPI: Linda Nascimento is a 74 y.o. year old with prior history of transferred from an [facility] to [facility] [...] Date CARDIAC CATHETERIZATION CARDIAC PACEMAKER PLACEMENT COLONOSCOPY CTA AORTA AND BILATERAL ILIOFEMORAL RUNOFF W IV CONTRAST 04/23/2022 CT AORTA AND BILATERAL ILIOFEMORAL RUNOFF ANGIOGRAM W AND/OR WO IV CONTRAST 04/23/[address] [facility] [address] IMAGING CTA CHEST W IV CONTRAST 04/23/2022 CT CHEST ANGIOGRAM W AND/OR WO IV CONTRAST 04/23/[address] [facility] [address] IMAGING TONSILLECTO (more content not included)... [facility] 05-21-2024 Note [place] Electrophysiology Consult Note [place] Cardiology [facility] Reason for visit: 05/21/24 Pt [...] with prior history of transferred from an [facility] to [facility] [...] Partner Violence: Unkn (more content not included)... [facility] 03-30-2022 Evaluation note Encounter Date Diagnosis Assessment Notes Mar, Other spondylosis with radiculopathy, lumbar region (ICD-10 - M47.26) [facility] Other 10-13-2022 Evaluation note* Encounter Date Diagnosis [...] note writ ten by Summer Molina LPN, Studio [employer]. Edited and approved by Dr. Rancho Chamorro MD. [facility] Other 10-05-2022 Evaluation note* Encounter Date Diagnosis Assessment Notes Treatment Notes Treatment Clinical Notes Mar, Other low back pain (ICD-10 - M54.59) [facility] Other 07-14-2022 Evaluation note* Encounter Date Diagnosis [...] note writ ten by Mika Villalobos MA, Studio [employer]. Edited and approved by Dr. Rancho Chamorro MD. [facility] Other 06-08-2022 Evaluation note* Encounter Date Diagnosis [...] note writ ten by Mika Villalobos MA, Studio Musician. Edited and approved by Dr. Rancho Chamorro MD. [facility] Other 06-08-2022 Evaluation note* Encounter Date Diagnosis [...] four weeks, case discussed with Dr. Diaz [facility] has been contacted and will consult wound care. [facility] Other 05-25-2022 Evaluation note* Encounter Date Diagnosis [...] for Keflex BID x 14 days and Flynn. Patient and sister instructed to contact office with any signs of infection or significant changes [facility] Other 05-19-2022 Evaluation note* Encounter Date Diagnosis [...] note writ ten by Summer Molina LPN, Studio [employer]. Edited and approved by Dr. Rancho Chamorro MD. [facility] Other 04-28-2022 Evaluation note* Encounter Date Diagnosis Assessment Notes Treatment Notes Treatment Clinical Notes Sep, Pacemaker (ICD-10 - Z95.0) [facility] Other 04-27-2022 Evaluation note* Encounter Date Diagnosis [...] spinal osteoarthritis complication status (ICD-10 - M47.816) [facility] Other 03-30-2022 Evaluation note* Encounter Date Diagnosis [...] D. To call with questions or concerns. [facility] Other 11-18-2021 NoteMR#: [id number] I [facility] Pt. Name: Linda Nascimento Admitted: 04/21/2021 [...] Lozada MD Date Trans: 04/29/2021 12:17 P/mmo [id number] cc: Leslie Arroyo M.D. [address] [place] [address] M[address] [facility] [id number] Health CenterEvaluation noteNo InformationNorth Playhem Other Evaluation noteNo assessment information available [facility] Work Phone: History general Narrative - Reported* Type Description Date Medical History bipolar Medical History Arthritis Medical History high blood pressure Medical History chronic depression Medical History iron deficiency anemia Medical History kidney disease Medical History hyperlipidemia Medical History anxiety Medical History vitamin D deficiency Surgical History tonsillectomy Surgical History laparoscopy Hospitalization History depression [facility] Other Summary Purpose Family History No Family [...] and content) DATE CREATED AUTHOR 05/30/2021 [facility] DATE CREATED AUTHOR AUTHOR'S ORGANIZ ATION 04/05/2022 [facility] DATE CREATED AUTHOR AUTHOR'S ORGANIZ ATION 10/19/2022 [facility] DATE CREATED AUTHOR AUTHOR'S ORGANIZ ATION 03/27/2023 [facility] DATE CREATED AUTHOR AUTHOR'S ORGANIZ ATION 05/10/2024 [facility] DATE CREATED AUTHOR AUTHOR'S ORGANIZ ATION 08/09/2024 [facility] DATE CREATED AUTHOR AUTHOR'S ORGANIZ ATION 01/04/2025 [facility] REASON FOR VISIT (unrecogniz ed section and [...] July 31, 2024 End: July 31, 2024 Beti Ham MD Attending Provider Active St art: [...] BE BASED ON THE PRIMARY CLINICAL RECORDS. [facility]. provides no warranty or guarantee of the accuracy or completeness of information in this document.
--- NOTE | 2025-01-06 05:03 | ED.SOB1 ---
HPI - SOB/Dyspnea General Chief Complaint: Shortness of Breath/Dyspnea Stated Complaint: coughing, SHORTNESS OF BREATH Time Seen by Provider: 01/06/25 04:59 Mode of arrival: ambulance History of Present Illness HPI Narrative: patient states she has been coughing for 2 weeks. States she was sent here this AM by [facility] but she doesn't know why. Denies any pain. Per nursing RA pulse ox 89%. She denies chest or abdominal pain. past history of CHF Related Data Home Medications ?Medication ?Instructions ?Recorded ?Confirmed apixaban 5 mg tablet (Eliquis) 5 mg PO BID 11/15/22 01/06/25 baclofen 10 mg tablet 10 mg PO DAILY@1400 11/15/22 01/07/25 dapagliflozin propanediol 10 mg 10 mg PO DAILY 11/15/22 01/06/25 tablet (Farxiga) escitalopram oxalate 10 mg tablet 10 mg PO DAILY 11/15/22 01/06/25 (Lexapro) ferrous sulfate 325 mg (65 mg 325 mg PO DAILY 11/15/22 01/06/25 iron) tablet (Feosol) lamotrigine 150 mg tablet 150 mg PO DAILY 11/15/22 01/06/25 losartan 25 mg tablet 25 mg PO DAILY 11/15/22 01/06/25 multivitamin with iron 1 tab PO DAILY 11/15/22 01/06/25 pantoprazole 40 mg tablet,delayed 40 mg PO DAILY 11/15/22 01/06/25 release polyethylene glycol 3350 17 gram 17 g PO DAILY PRN laxative 11/15/22 01/07/25 oral powder packet (Miralax) potassium chloride 10 mEq 10 meq PO BID 11/15/22 01/06/25 tablet,extended release tamsulosin 0.4 mg capsule 0.4 mg PO .QHS 11/15/22 01/07/25 baclofen 20 mg tablet 20 mg PO QAM 11/16/22 01/07/25 acetaminophen 325 mg capsule 650 mg PO Q6H PRN pain 04/02/24 01/06/25 donepezil 10 mg tablet (Aricept) 10 mg PO .QHS 04/02/24 01/07/25 furosemide 20 mg tablet 60 mg PO DAILY 04/02/24 01/07/25 olanzapine 15 mg tablet 15 mg PO .QHS 04/02/24 01/07/25 venlafaxine 150 mg 150 mg PO DAILY 04/02/24 01/06/25 capsule,extended release 24 hr (Effexor XR) amiodarone 200 mg tablet 400 mg PO Q12H 01/06/25 01/06/25 prednisone 5 mg tablet 5 mg PO DAILY 01/07/25 01/07/25 Previous Rx's ?Medication ?Instructions ?Recorded benzonatate 100 mg capsule 100 mg PO Q8H PRN Cough 10 days #0 01/10/25 caps carvedilol 6.25 mg tablet 6.25 mg PO BID #0 tabs 01/10/25 clonazepam 0.5 mg tablet 0.5 mg PO QHS 5 days #5 tabs 01/10/25 clonazepam 0.5 mg tablet 0.5 mg PO TID 5 days #15 tabs 01/10/25 doxycycline hyclate 100 mg tablet 100 mg PO BID 10 days #20 tabs 01/10/25 fentanyl 50 mcg/hr transdermal 1 patch transdermal Q72H 6 days #2 01/10/25 patch ea guaifenesin 100 mg/5 mL oral liquid 200 mg (10 mL) PO Q6H PRN Cough #0 01/10/25 mL hydrocodone 7.5 mg-acetaminophen 1 tab PO TID PRN PAIN 7-10 5 days 01/10/25 325 mg tablet #15 tabs prednisone 10 mg tablet 10 mg PO DAILY #15 tabs 01/10/25 spironolactone 25 mg tablet 12.5 mg (1/2 x 25 mg) PO DAILY #30 01/10/25 tabs Allergies Allergy/AdvReac Type Severity Reaction Status Date / Time cephalexin Allergy Unknown Verified 01/06/25 04:53 Review of Systems ROS Status of ROS 10 or more systems reviewed and unremarkable except as noted in history and below [facility] Medical History (Updated 01/14/25 @ 00:00 by ) Acute hypoxic respiratory failure ?J96.01 - Acute respiratory failure with hypoxia (ICD-10) Atrial fibrillation ?I48.91 - Unspecified atrial fibrillation (ICD-10) Venous ulcer ?I83.009 - Varicose veins of unspecified lower extremity with ulcer of unspecified site (ICD-10) ?L97.909 - Non-pressure chronic ulcer of unspecified part of unspecified lower leg with unspecified severity (ICD-10) Bipolar disorder ?F31.9 - Bipolar disorder, unspecified (ICD-10) 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 - Syndrome of inappropriate secretion of antidiuretic hormone (ICD-10) Hyponatremia ?E87.1 - Hypo-osmolality and hyponatremia (ICD-10) Bronchitis ?J40 - Bronchitis, not specified as acute or chronic (ICD-10) Knee effusion ?M25.469 - Effusion, unspecified knee (ICD-10) Gastrointestinal hemorrhage ?K92.2 - Gastrointestinal hemorrhage, unspecified (ICD-10) Venous insufficiency ?I87.2 - Venous insufficiency (chronic) (peripheral) (ICD-10) Dehydration ?E86.0 - Dehydration (ICD-10) Hypomagnesemia ?E83.42 - Hypomagnesemia (ICD-10) Acute kidney failure ?N17.9 - Acute kidney failure, unspecified (ICD-10) UTI (urinary tract infection) ?N39.0 - Urinary tract infection, site not specified (ICD-10) Cellulitis ?L03.90 - Cellulitis, unspecified (ICD-10) Encephalopathy ?G93.40 - Encephalopathy, unspecified (ICD-10) Venous ulcer of right leg ?I83.019 - Varicose veins of right lower extremity with ulcer of unspecified site (ICD-10) ?L97.919 - Non-pressure chronic ulcer of unspecified part of right lower leg with unspecified severity (ICD-10) Venous ulcer of left leg ?I83.029 - Varicose veins of left lower extremity with ulcer of unspecified site (ICD-10) ?L97.929 - Non-pressure chronic ulcer of unspecified part of left lower leg with unspecified severity (ICD-10) GERD (gastroesophageal reflux disease) ?K21.9 - Gastro-esophageal reflux disease without esophagitis (ICD-10) Paroxysmal A-fib ?I48.0 - Paroxysmal atrial fibrillation (ICD-10) Myocardial infarction ?I21.9 - Acute myocardial infarction, unspecified (ICD-10) Bipolar 1 disorder, manic, mild ?F31.11 - Bipolar disorder, current episode manic without psychotic features, mild (ICD-10) Vitamin D deficiency ?E55.9 - Vitamin D deficiency, unspecified (ICD-10) CKD (chronic kidney disease) stage 2, GFR 60-89 ml/min ?N18.2 - Chronic kidney disease, stage 2 (mild) (ICD-10) Shock therapy as the cause of abnormal reaction of patient or of later complication without misadventure at time of procedure ?Y84.3 - Shock therapy as the cause of abnormal reaction of the patient, or of later complication, without mention of misadventure at the time of the procedure (ICD-10) Normal colonoscopy Pacemaker ?Z95.0 - Presence of cardiac pacemaker (ICD-10) Hematoma of lower leg ?S80.10XA - Contusion of unspecified lower leg, initial encounter (ICD-10) HTN (hypertension) ?I10 - Essential (primary) hypertension (ICD-10) Sarcoidosis ?D86.9 - Sarcoidosis, unspecified (ICD-10) Seizures ?R56.9 - Unspecified convulsions (ICD-10) Anemia ?D64.9 - Anemia, unspecified (ICD-10) Arthritis ?M19.90 - Unspecified osteoarthritis, unspecified site (ICD-10) Surgical History Hx of tonsillectomy ?Z90.89 - Acquired absence of other organs (ICD-10) H/O exploratory laparotomy ?Z98.890 - Other specified postprocedural states (ICD-10) Family History (Updated 01/06/25 @ 09:14 by Stephany Benavides, KELLY) Mother Family history of cancer Social History (Updated 04/04/24 @ 08:15 by Erin Sanz) Within the past year, how often did you have a drink containing alcohol: never Score interpretation: A score less than 3 is consistent with normal alcohol consumption. Smoking status: Never smoker Non-prescribed substance use: denies use Highest level of school completed/degree received: high school graduate Little interest or pleasure in doing things: not at all Feeling down, depressed, or hopeless: not at all Exam Constitutional Vital Signs, click to edit/add: Last Vital Signs Temp 97.7 F 01/10/25 08:33 Pulse 69 01/10/25 11:46 Resp 16 01/10/25 08:33 BP 123/72 01/10/25 08:33 Pulse Ox 92 L 01/10/25 11:27 O2 Del Method Nasal Cannula 01/10/25 11:27 O2 Flow Rate 1 01/10/25 11:27 Common normals: no apparent distress, average body habitus, oriented x3, no limitations, healthy appearing, alert and well nourished [facility] Common normals: normocephalic and head/scalp atraumatic Eye Common normals: PERRL and EOMs intact bilaterally Respiratory Common normals: normal respiratory effort, no retractions, no use of accessory muscles and clear to auscultation bilaterally Cardio Common normals: regular rate, regular rhythm, S1 normal heart sound and S2 normal heart sound GI Common normals: Normal to inspection, nondistended, normoactive bowel sounds present, soft to palpation and non-tender Extremity Common normals: normal to inspection and full ROM Neuro Common normals: oriented x3, CN's II-XII intact bilaterally and moves all extremities Psych Appearance: grossly normal Course Course Hospital Course: This is a 74-year-old woman, who resides at a long-term care facility, who presented with increased coughing, increased oxygen requirements, and concern for aspiration pneumonia. She was admitted here to [facility]. She was started on IV Zosyn. She had a speech therapy consultation. She also had some volume overload and was given IV diuretics. CT scanning of her chest showed partial opacification of the left upper and lower lobe, which was likely due to aspirated material. She also has a incidental finding of a pleural-based noncalcified 6 mm nodule along the major fissure on the left. She will need a follow-up low-dose CT scan of the chest in 6 months. An echocardiogram shows a preserved left ventricular ejection fraction of 55%. During the entire hospital stay her white blood count remained normal at 7.9, 7.9, 8.5, 7.4, and 7.3. She did have a very thick and very harsh but ultimately nonproductive cough that will be very slow to improve. She can barely expectorate any mucus. Blood cultures x 2 were negative, but no sputum culture could be obtained during the hospital stay. During the hospital stay her creatinine had a general trend towards improvement, being 1.69, then 1.86, then 1.89, then 1.92, but then 1.59 on the last hospital day. At the end of this hospital stay her long-term care facility will be putting her on the skilled side for additional physical therapy and Occupational Therapy and then return her to her extended care facility situation. Vital Signs Vital signs: Vital Signs Temperature 97.8 F 01/06/25 04:36 Pulse Rate 69 01/06/25 04:36 Respiratory Rate 14 01/06/25 04:36 Blood Pressure 145/86 H 01/06/25 04:36 Pulse Oximetry 89 L 01/06/25 04:36 Oxygen Delivery Method Room Air 01/06/25 04:36 Temperature 97.7 F 01/10/25 08:33 Pulse Rate 69 01/10/25 11:46 Respiratory Rate 16 01/10/25 08:33 Blood Pressure 123/72 01/10/25 08:33 Pulse Oximetry 92 L 01/10/25 11:27 Oxygen Delivery Method Nasal Cannula 01/10/25 11:27 Oxygen Delivery Flow Rate 1 01/10/25 11:27 MDM - SOB/Dyspnea MDM Narrative Medical decision making narrative: patient present to ER from [facility] after cough for 2 weeks. She is in no distress. Per nursing RA pulse ox 89%. Cxray with right hilar mass per my reviewed. BNP and troponin neg. Patient has CKD with GFR 29 CT chest ordered to better characterize right hilar mass. care transferred to Dr Alvarez at change of shift Lab Data Labs: Lab Results 01/06/25 Range/Units 04:45 WBC 7.9 (4.0-11.0) 10^3/uL RBC 3.54 L (4.20-5.40) 10^6/uL Hgb 12.2 (12.0-16.0) g/dL Hct 37.1 (36.0-48.0) % MCV 104.8 H (81.0-99.0) fL MCH 34.5 H (26.7-34.0) pg MCHC 32.9 (29.9-35.2) g/dL RDW 13.3 (11.0-15.0) % Plt Count 186 (150-450) 10^3/uL MPV 9.7 (9.5-13.5) fL Neut % (Auto) 66.4 (43.0-75.0) % Lymph % (Auto) 21.5 (20.5-60.0) % [place] % (Auto) 7.8 (1.7-12.0) % Eos % (Auto) 2.9 (0.9-7.0) % Baso % (Auto) 0.4 (0.2-2.0) % Neut # (Auto) 5.2 (1.4-6.5) 10^3/uL Lymph # (Auto) 1.7 (1.2-3.8) 10^3/uL [place] # (Auto) 0.6 (0.3-0.8) 10^3/uL Eos # (Auto) 0.2 (0.0-0.7) 10^3/uL Baso # (Auto) 0.0 (0.0-0.1) 10^3/uL Abs Immat Gran (auto) 0.08 H (0.00-0.03) 10^3/uL Imm/Tot Granulo (auto) 1.0 H (0.0-0.5) % Sodium 143 (136-145) mmol/L Potassium 3.6 (3.5-5.1) mmol/L Chloride 100 (98-107) mmol/L Carbon Dioxide 34.2 H (21.0-32.0) mmol/L Anion Gap 12.4 BUN 39.0 H (7.0-18.0) mg/dL Creatinine 1.69 H (0.55-1.02) mg/dL Est GFR ( Amer) 36 L (>=60 mL/min/1.73m^2) Est GFR (Non-Af Amer) 29 L (>=60 mL/min/1.73m^2) BUN/Creatinine Ratio 23.1 Glucose 116 H (74-106) mg/dL Lactate 1.2 (0.4-2.0) mmol/L Calcium 9.4 (8.5-10.1) mg/dL Troponin I High Sens 7.0 (4.0-51.3) pg/mL NT-Pro-B Natriuret Pep 1520.0 (<=1800.0) pg/mL Discharge Plan Discharge Chief Complaint: Shortness of Breath/Dyspnea Clinical Impression: Aspiration pneumonia, Hypoxemia Patient Disposition: Admitted As Inpatient Time of Disposition Decision: 08:16 Condition: Fair Discharge Date/Time: 01/06/25 09:03
--- NOTE | 2025-01-06 05:04 | XR_ITS ---
The [address] [address] Patient Name: TIGIST MARCIAL MRN: [id number] date: 1950 Sex: F Assigned Patient Location: ED.MAIN Current Patient Location: ER Accession/Order Number: [id number] Exam Date: 01/06/2025 06:30 Report Date: 01/06/2025 06:32 At the request of: LEONIE COYLE MD Procedure: XR chest 2V XR chest 2V 01/06/2025 5:40 AM SIGNS AND SYMPTOMS: Cough PROTOCOL: Frontal and lateral radiographs of the chest COMPARISON: 04/23/2022 FINDINGS: The trachea is midline. Atherosclerotic changes are present in the aortic arch. There is a dual lead pacer device on the left. The heart and mediastinal structures are within normal limits. There is perihilar vascular prominence with interstitial prominence suggesting volume overload. The bony thorax is intact. XR/XR chest 2V IMPRESSION: There is perihilar vascular prominence with interstitial prominence suggesting volume overload. Impression dictated by: Rogelio Madrid M.D. 01/06/2025 6:32 AM Dictation Location: [place] [address] Electronically authenticated by: [id number] Y Date: 01/06/2025 06:32
--- NOTE | 2025-01-06 05:04 | ECG_ITS ---
The [facility] Test Date: 2025-01-06 Pat Name: TIGIST MARCIAL Department: Room: - Gender: Female System Controller: : 1950 Requested By: [id number] Order Number: [id number] Reading MD: TIP GIPSON M.D. Measurements Intervals [place] Rate: -46864 P: -69880 GA: -73617 QRS: -97306 QRSD: -07267 T: -42583 QT: -39186 QTc: -66137 Interpretive Statements Electronic ventricular pacemaker with underlying atrial fibrillation Abnormal ECG Compared to ECG 04/23/2022 09:52:35 Significant changes have occurred Electronically Signed On 01-06-2025 9:08:29 EDT by TIP GIPSON M.D.
[2025-01-06 05:08] LABS: Hematocrit 37.1 % (36.0-48.0); Hemoglobin 12.2 g/dL (12.0-16.0); Immature Granulocytes Abs Auto 0.08 10^3/uL (0.00-0.03); Immature Granulocytes Pct Auto 1.0 % (0.0-0.5); Lymphocytes Absolute Auto 1.7 10^3/uL (1.2-3.8); Mean Corpuscular HGB Conc 32.9 g/dL (29.9-35.2); Mean Corpuscular Hemoglobin 34.5 pg (26.7-34.0); Mean Corpuscular Volume 104.8 fL (81.0-99.0); Platelet Count 186 10^3/uL (150-450); Red Blood Count 3.54 10^6/uL (4.20-5.40); White Blood Count 7.9 10^3/uL (4.0-11.0)
[2025-01-06 05:30] LABS: Anion Gap 12.4; Blood Urea Nitrogen 39.0 mg/dL (7.0-18.0); Calcium 9.4 mg/dL (8.5-10.1); Carbon Dioxide 34.2 mmol/L (21.0-32.0); Chloride 100 mmol/L (98-107); Estimated GFR (African America 36 (>=60 mL/min/1.73m^2); Estimated GFR (Non-African Ame 29 (>=60 mL/min/1.73m^2); Glucose 116 mg/dL (74-106); NT Pro B Type Natriuretic Pept 1520.0 pg/mL (<=1800.0); Potassium 3.6 mmol/L (3.5-5.1); Sodium 143 mmol/L (136-145)
--- NOTE | 2025-01-06 05:54 | PC.NURSE ---
Sent to ED from [facility]. No nursing report was called. Patient states she has had cough for about 2 weeks. She is not sure why they decided to sent her to ED tonight. She does not normally wear oxygen, they put her on oxygen tonight at the [facility]. On arrival to ED, Spo2 was 89-91% on RA. She was placed on 2L oxygen. She states she does not feel short of breath. She has been tested for covid twice at the [facility], both were negative. She says they quarantined her the first time due to her sx awaiting the results. She states she is not able to cough up any phlegm, her cough is moist, inspiratory and expiratory wheezes. EMS gave duoneb with little improvement.
--- NOTE | 2025-01-06 06:09 | CT_ITS ---
The [address] [address] Patient Name: TIGIST MARCIAL MRN: [id number] date: 1950 Sex: F Assigned Patient Location: ED.MAIN Current Patient Location: ED.MAIN Accession/Order Number: [id number] Exam Date: 01/06/2025 07:50 Report Date: 01/06/2025 07:57 At the request of: LEONIE COYLE MD Procedure: CT chest wo con CT chest wo con 01/06/2025 6:42 AM SIGN AND SYMPTOMS: ^short of breath TECHNIQUE: Multidetector CT axial slices of the chest were obtained without IV contrast. Multiplanar reformats were performed and viewed on a separate workstation and reviewed to further define anatomy and possible pathology. CT was performed with one or more of the following dose reduction techniques: Automated exposure control, adjustment of the mA and/or kV according to patient size, or use of iterative reconstruction technique. COMPARISON: None.. FINDINGS: Lower neck: Calcifications noted along the inferior pole of the left thyroid lobe. Vessels: Atherosclerotic changes are noted in the thoracic aorta, origins of the great vessels, arteries. Mediastinum and Patti: Calcified hilar and mediastinal lymph nodes are present. Heart: Normal size. No pericardial effusion. Airways: There is partial opacification of the segmental bronchi to the left upper and lower lobe. Lungs: Airspace opacities are noted in the left upper and lower lobe may represent atelectasis or pneumonia. There is a pleural-based noncalcified 6 mm nodule along the major fissure on the left. Pleura: Within normal limits. Chest Wall: Within normal limits. Upper Abdomen: Within normal limits. Bones: There is a remote healed fracture of the right fifth rib. CT/CT chest wo con IMPRESSION: Airspace opacities are noted in the left upper and lower lobe may represent atelectasis or pneumonia. There is partial opacification of the segmental bronchi to the left upper and lower lobe. This may be secondary to the presence of aspirated material. There is a pleural-based noncalcified 6 mm nodule along the major fissure on the left. Follow-up per Fleischner Society guidelines is recommended. Multiple calcified mediastinal and hilar lymph nodes are noted in Impression dictated by: Rogelio Madrid M.D. 01/06/2025 7:57 AM Dictation Location: [place] [address] Electronically authenticated by: [id number] Y Date: 01/06/2025 07:57
--- NOTE | 2025-01-06 08:17 | ED.GENADUL1 ---
HPI HPI - General Adult General Chief complaint: Shortness of Breath/Dyspnea Stated complaint: coughing, SHORTNESS OF BREATH Time Seen by Provider: 01/06/25 04:59 Mode of arrival: ambulance History of Present Illness HPI narrative: 74-year-old female presents to the emergency department for chief complaint of shortness of breath and was initially seen by Dr. Weaver and signed out to me. Please see his full history and physical exam. Related Data Home Medications ?Medication ?Instructions ?Recorded ?Confirmed apixaban 5 mg tablet (Eliquis) 5 mg PO BID 11/15/22 01/06/25 baclofen 10 mg tablet 10 mg PO DAILY 11/15/22 01/06/25 carvedilol 25 mg tablet (Coreg) 25 mg PO BID 11/15/22 01/06/25 clonazepam 0.5 mg tablet 0.5 mg PO BID 11/15/22 01/06/25 dapagliflozin propanediol 10 mg 10 mg PO DAILY 11/15/22 01/06/25 tablet (Farxiga) escitalopram oxalate 10 mg tablet 10 mg PO DAILY 11/15/22 01/06/25 (Lexapro) ferrous sulfate 325 mg (65 mg 325 mg PO DAILY 11/15/22 01/06/25 iron) tablet (Feosol) lamotrigine 150 mg tablet 150 mg PO DAILY 11/15/22 01/06/25 losartan 25 mg tablet 25 mg PO DAILY 11/15/22 01/06/25 multivitamin with iron 1 tab PO DAILY 11/15/22 01/06/25 pantoprazole 40 mg tablet,delayed 40 mg PO DAILY 11/15/22 01/06/25 release polyethylene glycol 3350 17 gram 17 g PO DAILY laxative 11/15/22 01/06/25 oral powder packet (Miralax) potassium chloride 10 mEq 10 meq PO BID 11/15/22 01/06/25 tablet,extended release tamsulosin 0.4 mg capsule 0.4 mg PO DAILY 11/15/22 01/06/25 baclofen 20 mg tablet 20 mg PO DAILY 11/16/22 01/06/25 clonazepam 0.5 mg PO BEDTIME 11/16/22 01/06/25 dextromethorphan-guaifenesin 10 10 ml PO Q4H PRN cough 12/12/22 01/06/25 mg-100 mg/5 mL oral liquid (Adult Tussin Cough Congestion DM) hydrocodone 7.5 mg-acetaminophen 1 tab PO TID 01/10/23 01/06/25 325 mg tablet acetaminophen 325 mg capsule 650 mg PO Q6H PRN pain 04/02/24 01/06/25 donepezil 10 mg tablet (Aricept) 10 mg PO DAILY 04/02/24 01/06/25 fentanyl 50 mcg/hr transdermal 1 patch transdermal Q72H 04/02/24 01/06/25 patch furosemide 20 mg tablet 20 mg PO DAILY 04/02/24 01/06/25 olanzapine 15 mg tablet 15 mg PO DAILY 04/02/24 01/06/25 venlafaxine 150 mg 150 mg PO DAILY 04/02/24 01/06/25 capsule,extended release 24 hr (Effexor XR) levofloxacin 750 mg tablet mg 01/06/25 prednisone 5 mg tablet mg 01/06/25 Allergies Allergy/AdvReac Type Severity Reaction Status Date / Time cephalexin Allergy Unknown Verified 01/06/25 04:53 Opioid HPI Opioid Management Most Recent Opioid Data: Last Pain Scale 5 04/04/24, 12:00 [facility] Medical History (Updated 01/06/25 @ 08:17 by Darrel Alvarez MD) Atrial fibrillation ?I48.91 - Unspecified atrial fibrillation (ICD-10) Venous ulcer ?I83.009 - Varicose veins of unspecified lower extremity with ulcer of unspecified site (ICD-10) ?L97.909 - Non-pressure chronic ulcer of unspecified part of unspecified lower leg with unspecified severity (ICD-10) Bipolar disorder ?F31.9 - Bipolar disorder, unspecified (ICD-10) 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 - Syndrome of inappropriate secretion of antidiuretic hormone (ICD-10) Hyponatremia ?E87.1 - Hypo-osmolality and hyponatremia (ICD-10) Bronchitis ?J40 - Bronchitis, not specified as acute or chronic (ICD-10) Knee effusion ?M25.469 - Effusion, unspecified knee (ICD-10) Gastrointestinal hemorrhage ?K92.2 - Gastrointestinal hemorrhage, unspecified (ICD-10) Venous insufficiency ?I87.2 - Venous insufficiency (chronic) (peripheral) (ICD-10) Dehydration ?E86.0 - Dehydration (ICD-10) Hypomagnesemia ?E83.42 - Hypomagnesemia (ICD-10) Acute kidney failure ?N17.9 - Acute kidney failure, unspecified (ICD-10) UTI (urinary tract infection) ?N39.0 - Urinary tract infection, site not specified (ICD-10) Cellulitis ?L03.90 - Cellulitis, unspecified (ICD-10) Encephalopathy ?G93.40 - Encephalopathy, unspecified (ICD-10) Venous ulcer of right leg ?I83.019 - Varicose veins of right lower extremity with ulcer of unspecified site (ICD-10) ?L97.919 - Non-pressure chronic ulcer of unspecified part of right lower leg with unspecified severity (ICD-10) Venous ulcer of left leg ?I83.029 - Varicose veins of left lower extremity with ulcer of unspecified site (ICD-10) ?L97.929 - Non-pressure chronic ulcer of unspecified part of left lower leg with unspecified severity (ICD-10) GERD (gastroesophageal reflux disease) ?K21.9 - Gastro-esophageal reflux disease without esophagitis (ICD-10) Paroxysmal A-fib ?I48.0 - Paroxysmal atrial fibrillation (ICD-10) Myocardial infarction ?I21.9 - Acute myocardial infarction, unspecified (ICD-10) Bipolar 1 disorder, manic, mild ?F31.11 - Bipolar disorder, current episode manic without psychotic features, mild (ICD-10) Vitamin D deficiency ?E55.9 - Vitamin D deficiency, unspecified (ICD-10) CKD (chronic kidney disease) stage 2, GFR 60-89 ml/min ?N18.2 - Chronic kidney disease, stage 2 (mild) (ICD-10) Shock therapy as the cause of abnormal reaction of patient or of later complication without misadventure at time of procedure ?Y84.3 - Shock therapy as the cause of abnormal reaction of the patient, or of later complication, without mention of misadventure at the time of the procedure (ICD-10) Normal colonoscopy Pacemaker ?Z95.0 - Presence of cardiac pacemaker (ICD-10) Hematoma of lower leg ?S80.10XA - Contusion of unspecified lower leg, initial encounter (ICD-10) HTN (hypertension) ?I10 - Essential (primary) hypertension (ICD-10) Sarcoidosis ?D86.9 - Sarcoidosis, unspecified (ICD-10) Seizures ?R56.9 - Unspecified convulsions (ICD-10) Anemia ?D64.9 - Anemia, unspecified (ICD-10) Arthritis ?M19.90 - Unspecified osteoarthritis, unspecified site (ICD-10) Surgical History Hx of tonsillectomy ?Z90.89 - Acquired absence of other organs (ICD-10) H/O exploratory laparotomy ?Z98.890 - Other specified postprocedural states (ICD-10) Social History (Updated 04/04/24 @ 08:15 by Erin Sanz) Within the past year, how often did you have a drink containing alcohol: never Score interpretation: A score less than 3 is consistent with normal alcohol consumption. Smoking status: Never smoker Non-prescribed substance use: denies use Little interest or pleasure in doing things: not at all Feeling down, depressed, or hopeless: not at all Exam Constitutional Vital Signs, click to edit/add: Last Vital Signs Temp 97.8 F 01/06/25 04:36 Pulse 69 01/06/25 04:36 Resp 14 01/06/25 04:36 BP 145/86 H 01/06/25 04:36 Pulse Ox 94 L 01/06/25 05:10 O2 Del Method Nasal Cannula 01/06/25 05:10 O2 Flow Rate 2 01/06/25 05:10 Course Vital Signs Vital signs: Vital Signs Temperature 97.8 F 01/06/25 04:36 Pulse Rate 69 01/06/25 04:36 Respiratory Rate 14 01/06/25 04:36 Blood Pressure 145/86 H 01/06/25 04:36 Pulse Oximetry 89 L 01/06/25 04:36 Oxygen Delivery Method Room Air 01/06/25 04:36 Temperature 97.8 F 01/06/25 04:36 Pulse Rate 69 01/06/25 04:36 Respiratory Rate 14 01/06/25 04:36 Blood Pressure 145/86 H 01/06/25 04:36 Pulse Oximetry 94 L 01/06/25 05:10 Oxygen Delivery Method Nasal Cannula 01/06/25 05:10 Oxygen Delivery Flow Rate 2 01/06/25 05:10 Medical Decision Making MDM Narrative Medical decision making narrative: CT suggest pneumonia, specifically aspiration. No evidence of CHF. Blood cultures were obtained and she was given IV antibiotic. She has been hypoxemic here with an O2 sat of 89% upon arrival on room air. She is 94% on 2 L. Findings were discussed with the patient. Differential Diagnosis Differential Diagnosis: CHF, pneumonia Lab Data Lab results reviewed: Yes I reviewed the patient's lab results Labs: Lab Results 01/06/25 Range/Units 04:45 WBC 7.9 (4.0-11.0) 10^3/uL RBC 3.54 L (4.20-5.40) 10^6/uL Hgb 12.2 (12.0-16.0) g/dL Hct 37.1 (36.0-48.0) % MCV 104.8 H (81.0-99.0) fL MCH 34.5 H (26.7-34.0) pg MCHC 32.9 (29.9-35.2) g/dL RDW 13.3 (11.0-15.0) % Plt Count 186 (150-450) 10^3/uL MPV 9.7 (9.5-13.5) fL Neut % (Auto) 66.4 (43.0-75.0) % Lymph % (Auto) 21.5 (20.5-60.0) % [place] % (Auto) 7.8 (1.7-12.0) % Eos % (Auto) 2.9 (0.9-7.0) % Baso % (Auto) 0.4 (0.2-2.0) % Neut # (Auto) 5.2 (1.4-6.5) 10^3/uL Lymph # (Auto) 1.7 (1.2-3.8) 10^3/uL [place] # (Auto) 0.6 (0.3-0.8) 10^3/uL Eos # (Auto) 0.2 (0.0-0.7) 10^3/uL Baso # (Auto) 0.0 (0.0-0.1) 10^3/uL Abs Immat Gran (auto) 0.08 H (0.00-0.03) 10^3/uL Imm/Tot Granulo (auto) 1.0 H (0.0-0.5) % Sodium 143 (136-145) mmol/L Potassium 3.6 (3.5-5.1) mmol/L Chloride 100 (98-107) mmol/L Carbon Dioxide 34.2 H (21.0-32.0) mmol/L Anion Gap 12.4 BUN 39.0 H (7.0-18.0) mg/dL Creatinine 1.69 H (0.55-1.02) mg/dL Est GFR ( Amer) 36 L (>=60 mL/min/1.73m^2) Est GFR (Non-Af Amer) 29 L (>=60 mL/min/1.73m^2) BUN/Creatinine Ratio 23.1 Glucose 116 H (74-106) mg/dL Calcium 9.4 (8.5-10.1) mg/dL Troponin I High Sens 7.0 (4.0-51.3) pg/mL NT-Pro-B Natriuret Pep 1520.0 (<=1800.0) pg/mL Imaging Data Chest x-ray: Radiologist's impression: ITS Impressions Chest X-Ray 01/06/25 05:04 IMPRESSION: There is perihilar vascular prominence with interstitial prominence suggesting volume overload. Impression dictated by: Rogelio Madrid M.D. 01/06/2025 6:32 AM Dictation Location: [place] [address] Electronically authenticated by: [id number] Y Date: 01/06/2025 06:[address] 01/06/25 06:09 IMPRESSION: Airspace opacities are noted in the left upper and lower lobe may represent atelectasis or pneumonia. There is partial opacification of the segmental bronchi to the left upper and lower lobe. This may be secondary to the presence of aspirated material. There is a pleural-based noncalcified 6 mm nodule along the major fissure on the left. Follow-up per Fleischner Society guidelines is recommended. Multiple calcified mediastinal and hilar lymph nodes are noted in Impression dictated by: Rogelio Madrid M.D. 01/06/2025 7:57 AM Dictation Location: [place] Electronically authenticated by: [id number] Y Date: 01/06/2025 07:57 ECG Data Attestation: I personally reviewed and interpreted this ECG as follows: (EKG on my interpretation shows paced rhythm) Discharge Plan Discharge Chief Complaint: Shortness of Breath/Dyspnea Clinical Impression: Aspiration pneumonia, Hypoxemia Patient Disposition: Admitted As Inpatient Time of Disposition Decision: 08:16 Condition: Fair
[2025-01-06 08:52] LABS: Lactate/Lactic Acid 1.2 mmol/L (0.4-2.0)
[2025-01-06] MEDS: PIPERACILLIN SODIUM/TAZOBACTAM 3.375 GM in 0.9 % SODIUM CHLORIDE 50 ML IV ×2 (09:28→17:30)
--- NOTE | 2025-01-06 09:33 | PHOTOS ---
left lower leg
--- NOTE | 2025-01-06 09:34 | PHOTOS ---
right lateral ankle
--- NOTE | 2025-01-06 09:50 | CA_ITS ---
Patient Name: TIGIST MARCIAL MR#: [id number] : 1950 Exam Date: 01/06/2025 Ordering Doctor: KRISTIAN ARIZA ECHOCARDIOGRAM REPORT PROCEDURE: CA ECHO DOPPLER COMPLETE INDICATIONS: ruling out CHF, atrial fibrillation, pacemaker, NH, hypertension COMPARISON: None. DESCRIPTION: COMPLETE ECHOCARDIOGRAM Real-time transthoracic echocardiography with 2D, M-mode, spectral and color flow Doppler performed. QUALITY: Technical quality was adequate. LEFT VENTRICLE: Normal chamber size. Proximal septal hypertrophy (sigmoid septum). Moderate concentric hypertrophy. LV EF: Normal left ventricular ejection fraction, (55%). DIASTOLIC: ATRIAL SEPTUM: LEFT ATRIUM: Moderate dilatation. RIGHT ATRIUM: Normal chamber size. RIGHT VENTRICLE: Normal chamber size. Systolic function appears normal. Pacer wire present. TRICUSPID VALVE: Normal mobility and thickness. No stenosis with mild regurgitation. No evidence of pulmonary hypertension. RVSP 34 mmHg MITRAL VALVE: Normal mobility and thickness. No evidence of mitral valve stenosis. There is no mitral annular calcification. No mitral regurgitation. AORTIC VALVE: Normal trileaflet appearance. No visible sclerosis. Normal leaflet mobility. No evidence of aortic valve stenosis. No aortic regurgitation. AORTIC ROOT: Normal diameter and appearance, measuring 3.4 cm. Ascending aorta is normal in size (3.5 cm). PULMONIC VALVE: Normal thickness and mobility. No stenosis. No regurgitation. PERICARDIUM: No evidence of pericardial effusion. IVC: Not well visualized. PLEURA: CONCLUSION: 1. Moderate concentric left ventricular hypertrophy with normal systolic function. Estimated LVEF is 55%. 2. The right ventricle is normal in size and appears to have normal systolic function. 3. No significant valvular dysfunction. 4. Normal right-sided pressures. Adult Echocardiography Procedure Report Left Ventricle LVEDD (3.7 - 5.6 cm): 3.85 cm LVESD (2.2 - 4.0 cm): 2.51 cm LVIVS thickness (0.6 - 1.2 cm): 1.81 cm LVPW thickness (0.5 - 1.0 cm): 1.05 cm e': 0.14 m/s E - e': 5.78 LVOT Max Gradient: 1.89 mm[Hg] LVOT Area (cm2): 0.69 m/s Peak Velocity (LVOT): 0.69 m/s LVOT Diameter 2.04 cm Left Atrium LA Volume Index (2D A2C): 44.33 ml/m2 Left Atrium Systolic Dimension: 5.04 cm Mitral Valve MV E to A Ratio: 2.59 Mitral Valve A-Wave Peak Velocity: 0.32 m/s Mitral Valve E-Wave Peak Velocity: 0.82 m/s Right Ventricle Aorta AO Root Diam: 3.39 cm Ascending Ao Diam: 3.46 cm, 3.39 cm Aortic Valve AoV Area (Peak Jason): 2.25 cm2, 2.25 cm2 Peak Velocity(Antegrade Flow): 1.00 m/s Peak Gradient(Antegrade Flow): 4.01 mm[Hg] Tricuspid Valve Peak Velocity (Regurgitant Flow): 2.80 m/s Pulmonic Valve Peak Gradient: 2.55 mm[Hg], 2.36 mm[Hg] Right Atrium Right Atrium Systolic Pressure: 50.24 ml, 50.24 ml Dictated by: Stoney Carrizales M.D. on 01/06/2025 at 17:52 Approved by: Stoney Carrizales M.D. on 01/06/2025 at 17:55
--- NOTE | 2025-01-06 09:51 | PM.IMHP1 ---
Internal Medicine - H&P: HPI History of Present Illness Chief complaint: coughing, ASPIRATION PNEUMONIA, HYPOXEMIA Narrative: This is a 74 y.o female with past medical history of atrial fibrillation on Eliquis, SIADH, hyponatremia, remote GI bleed, venous status ulcer/dermatitis, GERD, CKD stage II, pacemaker in place, seizures, sarcoidosis, hypertension, anemia, osteoarthritis, morbid obesity, here for cough of 2 weeks. History was limited from the patient however she told me that she is alert x 3 as well as that she was having this cough, dry along with shortness of breath of the last week. Denies any sick contacts at the [facility]. States that she walks with a walker. Denies any fever or chills or nausea or vomiting. Reviewed her [facility] papers did not see any fever or hypotension or tachycardia documented. In the ED, patient satting 86% which improved to 93% on 2 to 4 L nasal cannula. CBC did not show any leukocytosis. CMP showed BUN of 39 creatinine 1.69 which I think is related to his renal derangement but no new ASHLEY. Troponin was negative. proBNP was 1520 which was normal. Patient was not overloaded on exam. Lactic acid was 1.2. EKG showed paced rhythm. Patient received 1 dose of IV Zosyn 3.375 g. Chest Xray showed vascular congestion, however CT chest without contrast showed Airspace opacities in the left upper and lower lobe may represent atelectasis or pneumonia, partial opacification of the segmental bronchi to the left upper and left lower lobe. Pleural based non-calcified 6 mm nodule along the major fissure on the left. the Patient to be admitted under hospitalist service Review of Systems ROS Status of ROS 10 or more systems reviewed and unremarkable except as noted in history and below [facility] Medical History (Updated 01/06/25 @ 09:58 by Gerald Knight MD) Atrial fibrillation ?I48.91 - Unspecified atrial fibrillation (ICD-10) Venous ulcer ?I83.009 - Varicose veins of unspecified lower extremity with ulcer of unspecified site (ICD-10) ?L97.909 - Non-pressure chronic ulcer of unspecified part of unspecified lower leg with unspecified severity (ICD-10) Bipolar disorder ?F31.9 - Bipolar disorder, unspecified (ICD-10) 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 - Syndrome of inappropriate secretion of antidiuretic hormone (ICD-10) Hyponatremia ?E87.1 - Hypo-osmolality and hyponatremia (ICD-10) Bronchitis ?J40 - Bronchitis, not specified as acute or chronic (ICD-10) Knee effusion ?M25.469 - Effusion, unspecified knee (ICD-10) Gastrointestinal hemorrhage ?K92.2 - Gastrointestinal hemorrhage, unspecified (ICD-10) Venous insufficiency ?I87.2 - Venous insufficiency (chronic) (peripheral) (ICD-10) Dehydration ?E86.0 - Dehydration (ICD-10) Hypomagnesemia ?E83.42 - Hypomagnesemia (ICD-10) Acute kidney failure ?N17.9 - Acute kidney failure, unspecified (ICD-10) UTI (urinary tract infection) ?N39.0 - Urinary tract infection, site not specified (ICD-10) Cellulitis ?L03.90 - Cellulitis, unspecified (ICD-10) Encephalopathy ?G93.40 - Encephalopathy, unspecified (ICD-10) Venous ulcer of right leg ?I83.019 - Varicose veins of right lower extremity with ulcer of unspecified site (ICD-10) ?L97.919 - Non-pressure chronic ulcer of unspecified part of right lower leg with unspecified severity (ICD-10) Venous ulcer of left leg ?I83.029 - Varicose veins of left lower extremity with ulcer of unspecified site (ICD-10) ?L97.929 - Non-pressure chronic ulcer of unspecified part of left lower leg with unspecified severity (ICD-10) GERD (gastroesophageal reflux disease) ?K21.9 - Gastro-esophageal reflux disease without esophagitis (ICD-10) Paroxysmal A-fib ?I48.0 - Paroxysmal atrial fibrillation (ICD-10) Myocardial infarction ?I21.9 - Acute myocardial infarction, unspecified (ICD-10) Bipolar 1 disorder, manic, mild ?F31.11 - Bipolar disorder, current episode manic without psychotic features, mild (ICD-10) Vitamin D deficiency ?E55.9 - Vitamin D deficiency, unspecified (ICD-10) CKD (chronic kidney disease) stage 2, GFR 60-89 ml/min ?N18.2 - Chronic kidney disease, stage 2 (mild) (ICD-10) Shock therapy as the cause of abnormal reaction of patient or of later complication without misadventure at time of procedure ?Y84.3 - Shock therapy as the cause of abnormal reaction of the patient, or of later complication, without mention of misadventure at the time of the procedure (ICD-10) Normal colonoscopy Pacemaker ?Z95.0 - Presence of cardiac pacemaker (ICD-10) Hematoma of lower leg ?S80.10XA - Contusion of unspecified lower leg, initial encounter (ICD-10) HTN (hypertension) ?I10 - Essential (primary) hypertension (ICD-10) Sarcoidosis ?D86.9 - Sarcoidosis, unspecified (ICD-10) Seizures ?R56.9 - Unspecified convulsions (ICD-10) Anemia ?D64.9 - Anemia, unspecified (ICD-10) Arthritis ?M19.90 - Unspecified osteoarthritis, unspecified site (ICD-10) Surgical History Hx of tonsillectomy ?Z90.89 - Acquired absence of other organs (ICD-10) H/O exploratory laparotomy ?Z98.890 - Other specified postprocedural states (ICD-10) Family History (Updated 01/06/25 @ 09:14 by Stephany Benavides, KELLY) Mother Family history of cancer Social History (Updated 04/04/24 @ 08:15 by Erin Sanz) Within the past year, how often did you have a drink containing alcohol: never Score interpretation: A score less than 3 is consistent with normal alcohol consumption. Smoking status: Never smoker Non-prescribed substance use: denies use Highest level of school completed/degree received: high school graduate Little interest or pleasure in doing things: not at all Feeling down, depressed, or hopeless: not at all Meds Home Medications and Allergies Home Medications ?Medication ?Instructions ?Recorded ?Confirmed ?Type apixaban 5 mg tablet (Eliquis) 5 mg PO BID 11/15/22 01/06/25 History baclofen 10 mg tablet 10 mg PO DAILY 11/15/22 01/06/25 History carvedilol 25 mg tablet (Coreg) 25 mg PO BID 11/15/22 01/06/25 History clonazepam 0.5 mg tablet 0.5 mg PO BID 11/15/22 01/06/25 History dapagliflozin propanediol 10 mg 10 mg PO DAILY 11/15/22 01/06/25 History tablet (Farxiga) escitalopram oxalate 10 mg tablet 10 mg PO DAILY 11/15/22 01/06/25 History (Lexapro) ferrous sulfate 325 mg (65 mg 325 mg PO DAILY 11/15/22 01/06/25 History iron) tablet (Feosol) lamotrigine 150 mg tablet 150 mg PO DAILY 11/15/22 01/06/25 History losartan 25 mg tablet 25 mg PO DAILY 11/15/22 01/06/25 History multivitamin with iron 1 tab PO DAILY 11/15/22 01/06/25 History pantoprazole 40 mg tablet,delayed 40 mg PO DAILY 11/15/22 01/06/25 History release polyethylene glycol 3350 17 gram 17 g PO DAILY laxative 11/15/22 01/06/25 History oral powder packet (Miralax) potassium chloride 10 mEq 10 meq PO BID 11/15/22 01/06/25 History tablet,extended release tamsulosin 0.4 mg capsule 0.4 mg PO DAILY 11/15/22 01/06/25 History baclofen 20 mg tablet 20 mg PO DAILY 11/16/22 01/06/25 History clonazepam 0.5 mg PO BEDTIME 11/16/22 01/06/25 History dextromethorphan-guaifenesin 10 10 ml PO Q4H PRN cough 12/12/22 01/06/25 History mg-100 mg/5 mL oral liquid (Adult Tussin Cough Congestion DM) hydrocodone 7.5 mg-acetaminophen 1 tab PO TID 01/10/23 01/06/25 History 325 mg tablet acetaminophen 325 mg capsule 650 mg PO Q6H PRN pain 04/02/24 01/06/25 History donepezil 10 mg tablet (Aricept) 10 mg PO DAILY 04/02/24 01/06/25 History fentanyl 50 mcg/hr transdermal 1 patch transdermal Q72H 04/02/24 01/06/25 History patch furosemide 20 mg tablet 20 mg PO DAILY 04/02/24 01/06/25 History olanzapine 15 mg tablet 15 mg PO DAILY 04/02/24 01/06/25 History venlafaxine 150 mg 150 mg PO DAILY 04/02/24 01/06/25 History capsule,extended release 24 hr (Effexor XR) amiodarone 200 mg tablet 400 mg PO Q12H 01/06/25 01/06/25 History Allergies Allergy/AdvReac Type Severity Reaction Status Date / Time cephalexin Allergy Unknown Verified 01/06/25 04:53 Exam Narrative Exam Narrative: Constitutional: Frail 74 y.o female, oriented x3, following commands with generalized weakness, morbid obesity, not in acute distress but ill appearing [facility] Common normals: normocephalic and head/scalp atraumatic Eye Common normals: PERRL and EOMs intact bilaterally Respiratory Common normals: Decreased air entry on the left lung with crackles, no wheezes, saturating 92% on 2-4 liters nasal cannula, she is not using accessory muscles, she is not using abdominal wall muscles, she is not using accessory muscles Cardio Common normals: normal rate, irregular rhythm, S1 normal heart sound and S2 normal heart sound GI Common normals: Normal to inspection, nondistended, normoactive bowel sounds present, soft to palpation and non-tender Extremity Common normals: No lower extremity edema, intact peripheral pulses, bilateral venous ulcer (stasis dermatitis) Neuro Common normals: oriented x3, CN's II-XII intact bilaterally and moves all extremities but generally weak Constitutional Vital Signs, click to edit/add: Last Vital Signs Temp 97.8 F 01/06/25 04:36 Pulse 69 01/06/25 08:30 Resp 17 01/06/25 08:30 BP 133/88 01/06/25 04:38 Pulse Ox 92 L 01/06/25 08:20 O2 Del Method Nasal Cannula 01/06/25 05:10 O2 Flow Rate 2 01/06/25 05:10 Internal Medicine - H&P: Reslt Labs Labs: Short CBC 01/06/25 Range/Units 04:45 WBC 7.9 (4.0-11.0) 10^3/uL Hgb 12.2 (12.0-16.0) g/dL Hct 37.1 (36.0-48.0) % Plt Count 186 (150-450) 10^3/uL BMP 01/06/25 04:45 Sodium 143 Potassium 3.6 Chloride 100 Carbon Dioxide 34.2 H BUN 39.0 H Creatinine 1.69 H Glucose 116 H Calcium 9.4 Assessment and Plan Assessment and Plan (1) Acute hypoxic respiratory failure: (2) Aspiration pneumonia: (3) Chronic anticoagulation: (4) Obesity: (5) Sacroiliac dysfunction: (6) Lumbar spondylosis: (7) Debility: Plan Acute Hypoxic respiratory failure secondary to aspiration pneumonia CKD stage 2, no evidence of ASHLEY -Admit pt to medical floor with telemetry -Start IV Zosyn, to be dosed by pharmacy -CONSERVATION EDUCATOR consult, with aspiration precautions -Reconciled pt's medications -Pt states that she is DNR, nursing team contacted the [facility], we were told she is full code. I spoke to her niece Marline, with Ellen her mom who is the pt's POA, and confirmed to me that the pt is full code, which I updated the chart with. She tells me her mom had similar symptoms and came to the ED yesterday but was discharged back as she had a respiratory infection but was not told that she had pneumonia
--- NOTE | 2025-01-06 09:53 | CM.NOTE ---
Rounds made with Dr. Knight, pt comes from [facility]. Dr. Knight spoke with pt regarding diagnosis and plan of care. Dr. Knight also discussed with pt code status, RN will call [facility] for documentation of code status.
--- NOTE | 2025-01-06 09:55 | SWNOTE1 ---
Pt is from the [facility]. I spoke with Nasir at the [facility] and pt is long-term there. I asked how long pt has been there and Nasir voiced some years. I let her know we will send updates when we have them. SW to follow pt as needed.
--- NOTE | 2025-01-06 10:04 | SWNOTE1 ---
SW and I met with pt in room. Pt is from the [facility]. I asked pt how she likes it there and pt voiced it was okay. She also stated she has been there 4 years. Pt uses a walker to ambulate. Pt was also started on oxygen today. She does plan on returning to the [facility] at d/c. No needs identified at this time and SW to follow as needed.
--- NOTE | 2025-01-06 10:33 | SWNOTE1 ---
Important Message from Medicare discussed with patient. Pt verbalized understanding and signed paper. Copy placed in pt's chart and original given to pt.
--- NOTE | 2025-01-06 11:27 | PC.NURSE ---
SPOKE WITH SIRISHA RN, AT [facility] TO INFORM HER OF PT'S ADMISSION. SHE TELLS THIS RN SHE WILL TELL PT'S SISTER, PER REQUEST FROM PT, ABOUT HER ADMISSION.
[2025-01-06] MEDS: VENLAFAXINE HCL ER 150 MG CAPSULE PO (12:28)
[2025-01-06] MEDS: DONEPEZIL HCL 10 MG TABLET PO (12:29)
[2025-01-06] MEDS: CARVEDILOL 25 MG TABLET PO ×2 (12:29→20:43)
[2025-01-06] MEDS: FUROSEMIDE 20 MG TABLET PO (12:29)
[2025-01-06] MEDS: BACLOFEN 10 MG TABLET PO (12:29)
[2025-01-06] MEDS: FERROUS SULFATE 325 MG TABLET PO (12:29)
[2025-01-06] MEDS: AMIODARONE HCL 200 MG TABLET 400 MG PO ×2 (12:29→21:44)
[2025-01-06] MEDS: CLONAZEPAM 0.5 MG TABLET PO ×3 (12:30→21:44)
[2025-01-06] MEDS: MULTIVITAMIN TABLET 1 TAB PO (12:30)
[2025-01-06] MEDS: ESCITALOPRAM 10 MG TABLET PO (12:30)
[2025-01-06] MEDS: LOSARTAN POTASSIUM 25 MG TABLET PO (12:30)
[2025-01-06] MEDS: PANTOPRAZOLE SODIUM 40 MG TABLET.DR PO (12:30)
[2025-01-06] MEDS: LAMOTRIGINE 25 MG TABLET 150 MG PO (12:36)
[2025-01-06] MEDS: HYDROCODONE/ACET 5-325 MG TABLET 1.5 TAB PO ×2 (14:08→21:44)
[2025-01-06] MEDS: GUAIFENESIN 200 MG/DEXTROMETHORPHAN 20 MG 10 ML UNIT DOSE CUP PO ×2 (16:18→20:43)
[2025-01-06] MEDS: TAMSULOSIN HCL 0.4 MG CAPSULE PO (20:43)
[2025-01-06] MEDS: POLYETHYLENE GLYCOL 3350 17 GM POWDER PACKET PO (20:44)
[2025-01-06] MEDS: APIXABAN 5 MG TABLET PO (20:44)
[2025-01-06] MEDS: BACLOFEN 10 MG TABLET 20 MG PO (21:44)
[2025-01-07] VITALS (20 sets, daily range): BP systolic 73–116; BP diastolic 48–78; PULSE 69–73; TEMP 36.2–36.4; O2SAT 91–97
[2025-01-07] MEDS: PIPERACILLIN SODIUM/TAZOBACTAM 3.375 GM in 0.9 % SODIUM CHLORIDE 50 ML IV ×3 (02:31→17:42)
[2025-01-07 05:58] LABS: Hematocrit 35.7 % (36.0-48.0); Hemoglobin 11.4 g/dL (12.0-16.0); Immature Granulocytes Abs Auto 0.11 10^3/uL (0.00-0.03); Immature Granulocytes Pct Auto 1.4 % (0.0-0.5); Lymphocytes Absolute Auto 1.6 10^3/uL (1.2-3.8); Mean Corpuscular HGB Conc 31.9 g/dL (29.9-35.2); Mean Corpuscular Hemoglobin 33.9 pg (26.7-34.0); Mean Corpuscular Volume 106.3 fL (81.0-99.0); Platelet Count 158 10^3/uL (150-450); Red Blood Count 3.36 10^6/uL (4.20-5.40); White Blood Count 7.9 10^3/uL (4.0-11.0)
[2025-01-07] MEDS: HYDROCODONE/ACET 5-325 MG TABLET 1.5 TAB PO (06:00)
[2025-01-07] MEDS: GUAIFENESIN 200 MG/DEXTROMETHORPHAN 20 MG 10 ML UNIT DOSE CUP PO ×2 (06:00→13:07)
[2025-01-07] MEDS: PANTOPRAZOLE SODIUM 40 MG TABLET.DR PO (06:00)
[2025-01-07 06:23] LABS: Alanine Aminotransferase 10 U/L (14-59); Albumin Globulin Ratio 0.8; Albumin Level 3.0 g/dL (3.4-5.0); Alkaline Phosphatase 88 U/L (46-116); Anion Gap 13.0; Aspartate Amino Transferase 15 U/L (15-37); Blood Urea Nitrogen 37.0 mg/dL (7.0-18.0); Calcium 8.9 mg/dL (8.5-10.1); Carbon Dioxide 29.8 mmol/L (21.0-32.0); Chloride 102 mmol/L (98-107); Estimated GFR (African America 32 (>=60 mL/min/1.73m^2); Estimated GFR (Non-African Ame 26 (>=60 mL/min/1.73m^2); Globulin 4.0 g/dL; Glucose 92 mg/dL (74-106); Magnesium 2.3 mg/dL (1.8-2.4); Potassium 3.8 mmol/L (3.5-5.1); Sodium 141 mmol/L (136-145); Total Protein 7.0 g/dL (6.4-8.2)
[2025-01-07] MEDS: VENLAFAXINE HCL ER 150 MG CAPSULE PO (08:16)
[2025-01-07] MEDS: FERROUS SULFATE 325 MG TABLET PO (08:16)
[2025-01-07] MEDS: ESCITALOPRAM 10 MG TABLET PO (08:16)
[2025-01-07] MEDS: LOSARTAN POTASSIUM 25 MG TABLET PO (08:16)
[2025-01-07] MEDS: CARVEDILOL 25 MG TABLET PO (08:16)
[2025-01-07] MEDS: MULTIVITAMIN TABLET 1 TAB PO (08:16)
[2025-01-07] MEDS: DONEPEZIL HCL 10 MG TABLET PO (08:16)
[2025-01-07] MEDS: APIXABAN 5 MG TABLET PO ×2 (08:16→21:18)
[2025-01-07] MEDS: FUROSEMIDE 20 MG TABLET PO (08:16)
[2025-01-07] MEDS: AMIODARONE HCL 200 MG TABLET 400 MG PO ×2 (08:16→21:18)
[2025-01-07] MEDS: BACLOFEN 10 MG TABLET PO (08:17)
[2025-01-07] MEDS: LAMOTRIGINE 100 MG TABLET 150 MG PO (08:17)
[2025-01-07] MEDS: CLONAZEPAM 0.5 MG TABLET PO ×2 (08:20→21:18)
--- NOTE | 2025-01-07 09:40 | CM.NOTE ---
Rounds made with Dr. Knight, no discharge today. Plan of care discussed with pt, continue IV antibiotics.
--- NOTE | 2025-01-07 10:34 | PM.PN ---
Progress Note: Subjective Subjective Interval history: Patient seen and examined at bedside. She was sitting up in chair having breakfast. No fever no chills overnight. Continues on IV antibiotics. 97% saturation on 2 L nasal cannula. She was written x 3 and she was at baseline mental status. Labs were unremarkable and stable. Appreciate PT/OT and CNC MAINTENANCE MECHANIC evaluation Exam Narrative Exam Narrative: Constitutional: Frail 74 y.o female, oriented x3, following commands with generalized weakness, morbid obesity, not in acute distress but ill appearing [facility] Common normals: normocephalic and head/scalp atraumatic Eye Common normals: PERRL and EOMs intact bilaterally Respiratory Common normals: Decreased air entry on the left lung with crackles, no wheezes, saturating 92% on 2-4 liters nasal cannula, she is not using accessory muscles, she is not using abdominal wall muscles, she is not using accessory muscles Cardio Common normals: normal rate, irregular rhythm, S1 normal heart sound and S2 normal heart sound GI Common normals: Normal to inspection, nondistended, normoactive bowel sounds present, soft to palpation and non-tender Extremity Common normals: No lower extremity edema, intact peripheral pulses, bilateral venous ulcer (stasis dermatitis) Neuro Common normals: oriented x3, CN's II-XII intact bilaterally and moves all extremities but generally weak Constitutional Vital Signs, click to edit/add: Last Vital Signs Temp 97.5 F L 01/07/25 08:25 Pulse 69 01/07/25 09:51 Resp 16 01/07/25 08:25 BP 114/68 01/07/25 08:25 Pulse Ox 97 01/07/25 10:00 O2 Del Method Nasal Cannula 01/07/25 10:00 O2 Flow Rate 2 01/07/25 10:00 Progress Note: Objective Labs Labs: Short CBC 01/07/25 Range/Units 05:27 WBC 7.9 (4.0-11.0) 10^3/uL Hgb 11.4 L (12.0-16.0) g/dL Hct 35.7 L (36.0-48.0) % Plt Count 158 (150-450) 10^3/uL BMP 01/07/25 05:27 Sodium 141 Potassium 3.8 Chloride 102 Carbon Dioxide 29.8 BUN 37.0 H Creatinine 1.86 H Glucose 92 Calcium 8.9 Liver Function 01/07/25 Range/Units 05:27 Total Bilirubin 0.6 (0.2-1.0) mg/dL AST 15 (15-37) U/L ALT 10 L (14-59) U/L Alkaline Phosphatase 88 (46-116) U/L Albumin 3.0 L (3.4-5.0) g/dL Progress Note: A&P Assessment and Plan (1) Acute hypoxic respiratory failure: (2) Aspiration pneumonia: (3) Chronic anticoagulation: (4) Obesity: (5) Sacroiliac dysfunction: (6) Lumbar spondylosis: (7) Debility: Plan Acute Hypoxic respiratory failure secondary to aspiration pneumonia CKD stage 2, no evidence of ASHLEY -Admit pt to medical floor with telemetry -Start IV Zosyn, to be dosed by pharmacy -CNC MAINTENANCE MECHANIC consult, with aspiration precautions -Reconciled pt's medications -Pt states that she is DNR, nursing team contacted the alf, we were told she is full code. I spoke to her niece Marline, with Ellen her mom who is the pt's POA, and confirmed to me that the pt is full code, which I updated the chart with. She tells me her mom had similar symptoms and came to the ED yesterday but was discharged back as she had a respiratory infection but was not told that she had pneumonia 01/07/2025 patient is improving today still on oxygen though. She will need another day of IV antibiotics and if she is stable I will discharge her tomorrow. Appreciate CNC MAINTENANCE MECHANIC recommendations.
--- NOTE | 2025-01-07 11:09 | REH.PTDLY ---
Physical Therapy Daily Note PT Daily Note/Assess Start: 01/07/25 10:53 Freq: Status: Active Protocol: Document 01/07/25 10:53 TIFF (Rec: 01/07/25 11:08 [id number]) Physical Therapy Daily Note/Assessment Time In 10:28 Time Out 10:48 Subjective Pt up in chair upon arrival with nursing in room. Pt hadt taken O2 off so O2 sat were low. Nursing had to put pt on 4 L of O2 to bring back up to 94%. Therapeutic Exercise 10 Minutes (minutes) Therapeutic Exercise 1 Units Therapeutic Exercise Instructed in B LE seated exs with legs elevated. Exs Treatment included AP, QS, AA heel slides and SLR. With legs lowered instructed in B LE marching, hip abd, and LAQ 10x ea. Attempted standing exs, but pt has loud audible crepitus being noted with marching and mini squats. HR performed 10x. Therapeutic Activity 7 Minutes (minutes) Therapeutic Activity 0 Units Therapeutic Activity Sit to stand transfers from chair with B UE support 5x Comments CGA. Gait training with RW 3 feet forward and retro x2 with 4 L of O2, assistance to help push RW. Pt reports hers at the [facility] is easier to control. Spo2 at 93% afterwards. Total Therapy 17 Minutes Total Physical 1 Therapy Units Daily Note Summary Pt does well with transfers, requiring CGA today. Audible crepitus noted in Ross knees with exs. Continue to progress gait distance as pt tolerates. Pt's plan is to return to [facility] strategist care at [facility] at [place].
--- NOTE | 2025-01-07 11:13 | SWNOTE1 ---
RAMBO faxed updates to [facility]. Updates included PT eval and note from today, physician note from today, labs, vitals, nursing notes. RAMBO spoke with Michelle at [facility]. Pt is shelter there. SNF is recommended when returning. 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 Unsure if pt will have qualifying 3 day inpt stay for Medicare to pay for SNF. SW to re-assess tomorrow. Michelle from [facility] may be over to see pt today.
[2025-01-07] MEDS: BACLOFEN 10 MG TABLET 20 MG PO (13:06)
[2025-01-07] MEDS: PREDNISONE 5 MG TABLET PO (13:06)
[2025-01-07] MEDS: 0.9 % SODIUM CHLORIDE 500 ML IV (16:33)
[2025-01-07 16:55] LABS: Lactate/Lactic Acid 1.7 mmol/L (0.4-2.0)
[2025-01-07] MEDS: POLYETHYLENE GLYCOL 3350 17 GM POWDER PACKET PO (21:02)
[2025-01-07] MEDS: TAMSULOSIN HCL 0.4 MG CAPSULE PO (21:02)
[2025-01-07] MEDS: FENTANYL 50 MCG/HR PATCH.TD72 TD (21:18)
[2025-01-07] MEDS: 0.9 % SODIUM CHLORIDE 1,000 ML 80 ML IV (22:12)
[2025-01-07] MEDS: HYDROCORTISONE SODIUM SUCC PF 100 MG/2 ML VIAL IVP (22:14)
[2025-01-07] MEDS: ALBUMIN HUMAN 25 GM/100 ML PREMIX IV (22:14)
[2025-01-08] VITALS (19 sets, daily range): BP systolic 107–129; BP diastolic 61–73; PULSE 69–107; TEMP 36.3–36.8; O2SAT 90–96
[2025-01-08] MEDS: PIPERACILLIN SODIUM/TAZOBACTAM 3.375 GM in 0.9 % SODIUM CHLORIDE 50 ML IV ×3 (02:06→17:18)
--- NOTE | 2025-01-08 05:34 | PC.NURSE ---
Patient had a 1-2 min. irregular Rhythm/ A-Fib that her pacemaker did not capture. Pt was standing up at side of bed attempting to walk to the bathroom x 3 assist. Pt denies any palpations or CP or any symptoms. Episode printed and in the chart.
[2025-01-08] MEDS: PANTOPRAZOLE SODIUM 40 MG TABLET.DR PO (05:58)
--- NOTE | 2025-01-08 08:42 | XR_ITS ---
[address] [address] Patient Name: TIGIST MARCIAL MRN: [id number] date: 1950 Sex: F Assigned Patient Location: [place] Current Patient Location: [place] Accession/Order Number: [id number] Exam Date: 01/08/2025 09:40 Report Date: 01/08/2025 09:41 At the request of: KRISTIAN ARIZA MD Procedure: XR chest 2V Chest 2 views CLINICAL HISTORY: aspiration vs overload COMPARISON: CT chest 01/06/2025 FINDINGS: Pacemaker device is in place. Cardiomegaly vascular congestion and interstitial changes. No consolidation pneumothorax or large pleural effusion or free air. XR/XR chest 2V IMPRESSION: CHF FINDINGS. Impression dictated by: Prabhu Beltran Jr. DEmmaOEmma 01/08/2025 9:41 AM Dictation Location: [place] [address] Electronically authenticated by: [id number] Y Date: 01/08/2025 09:41
[2025-01-08] MEDS: MULTIVITAMIN TABLET 1 TAB PO (08:55)
[2025-01-08] MEDS: VENLAFAXINE HCL ER 150 MG CAPSULE PO (08:56)
[2025-01-08] MEDS: PREDNISONE 5 MG TABLET PO (08:56)
[2025-01-08] MEDS: LAMOTRIGINE 100 MG TABLET 150 MG PO (08:56)
[2025-01-08] MEDS: ESCITALOPRAM 10 MG TABLET PO (08:56)
[2025-01-08] MEDS: APIXABAN 5 MG TABLET PO ×2 (08:57→21:17)
[2025-01-08] MEDS: AMIODARONE HCL 200 MG TABLET 400 MG PO ×2 (08:57→21:17)
[2025-01-08] MEDS: BACLOFEN 10 MG TABLET 20 MG PO (08:57)
[2025-01-08] MEDS: CLONAZEPAM 0.5 MG TABLET PO ×3 (08:57→21:17)
[2025-01-08] MEDS: FERROUS SULFATE 325 MG TABLET PO (08:57)
--- NOTE | 2025-01-08 09:00 | CM.NOTE ---
Rounds made with Dr. Knight, no discharge today. Pt sitting up eating breakfast and c/o cough increasing with eating. Dr. Knight will reorder speech therapy for continued evaluation of swallow and aspiration precautions. Pt will also have chest x-ray today.
[2025-01-08 09:15] LABS: Hematocrit 32.5 % (36.0-48.0); Hemoglobin 10.8 g/dL (12.0-16.0); Immature Granulocytes Abs Auto 0.07 10^3/uL (0.00-0.03); Immature Granulocytes Pct Auto 0.8 % (0.0-0.5); Lymphocytes Absolute Auto 1.0 10^3/uL (1.2-3.8); Mean Corpuscular HGB Conc 33.2 g/dL (29.9-35.2); Mean Corpuscular Hemoglobin 35.0 pg (26.7-34.0); Mean Corpuscular Volume 105.2 fL (81.0-99.0); Platelet Count 156 10^3/uL (150-450); Red Blood Count 3.09 10^6/uL (4.20-5.40); White Blood Count 8.5 10^3/uL (4.0-11.0)
[2025-01-08 09:34] LABS: Alanine Aminotransferase 16 U/L (14-59); Albumin Globulin Ratio 0.8; Albumin Level 3.3 g/dL (3.4-5.0); Alkaline Phosphatase 83 U/L (46-116); Anion Gap 10.3; Aspartate Amino Transferase 13 U/L (15-37); Blood Urea Nitrogen 33.0 mg/dL (7.0-18.0); Calcium 8.8 mg/dL (8.5-10.1); Carbon Dioxide 32.7 mmol/L (21.0-32.0); Chloride 104 mmol/L (98-107); Estimated GFR (African America 31 (>=60 mL/min/1.73m^2); Estimated GFR (Non-African Ame 26 (>=60 mL/min/1.73m^2); Globulin 3.9 g/dL; Glucose 112 mg/dL (74-106); Potassium 4.0 mmol/L (3.5-5.1); Sodium 143 mmol/L (136-145); Total Protein 7.2 g/dL (6.4-8.2)
--- NOTE | 2025-01-08 09:56 | P.PN_ITS ---
Progress Note: Subjective Subjective Interval history: Patient still complaining of cough today, dry she was having breakfast I was concerned about microaspiration. I will consult VICE PRESIDENT PRECISION MARKET INSIGHTS again. No fever no chills. Renal functions around her baseline. Exam Narrative Exam Narrative: Constitutional: Frail 74 y.o female, oriented x3, following commands with generalized weakness, morbid obesity, not in acute distress but ill appearing [facility] Common normals: normocephalic and head/scalp atraumatic Eye Common normals: PERRL and EOMs intact bilaterally Respiratory Common normals: Decreased air entry bilaterally with crackles, no wheezes, saturating 92% on 2-4 liters nasal cannula, she is not using accessory muscles, she is not using abdominal wall muscles, she is not using accessory muscles Cardio Common normals: normal rate, irregular rhythm, S1 normal heart sound and S2 normal heart sound GI Common normals: Normal to inspection, nondistended, normoactive bowel sounds present, soft to palpation and non-tender Extremity Common normals: 1+ pitting edema in bilateral extremities, intact peripheral pulses, bilateral venous ulcer (stasis dermatitis) Neuro Common normals: oriented x3, CN's II-XII intact bilaterally and moves all ex tremities but generally weak Constitutional Vital Signs, click to edit/add: Last Vital Signs Temp 97.3 F L 01/08/25 07:33 Pulse 69 01/08/25 07:50 Resp 14 01/08/25 07:33 BP 121/73 01/08/25 07:33 Pulse Ox 94 L 01/08/25 07:33 O2 Del Method Nasal Cannula 01/08/25 07:33 O2 Flow Rate 2 01/08/25 07:33 Progress Note: Objective Labs Labs: Short CBC 01/08/25 Range/Units 09:09 WBC 8.5 (4.0-11.0) 10^3/uL Hgb 10.8 L (12.0-16.0) g/dL Hct 32.5 L (36.0-48.0) % Plt Count 156 (150-450) 10^3/uL BMP 01/08/25 09:09 Sodium 143 Potassium 4.0 Chloride 104 Carbon Dioxide 32.7 H BUN 33.0 H Creatinine 1.89 H Glucose 112 H Calcium 8.8 Liver Function 01/08/25 Range/Units 09:09 Total Bilirubin 0.4 (0.2-1.0) mg/dL AST 13 L (15-37) U/L ALT 16 (14-59) U/L Alkaline Phosphatase 83 (46-116) U/L Albumin 3.3 L (3.4-5.0) g/dL Progress Note: A&P Assessment and Plan (1) Acute hypoxic respiratory failure: (2) Aspiration pneumonia: (3) Chronic anticoagulation: (4) Obesity: (5) Sacroiliac dysfunction: (6) Lumbar spondylosis: (7) Debility: Plan Acute Hypoxic respiratory failure secondary to aspiration pneumonia Component of Acute diastolic CHF exacerbation CKD stage 2, no evidence of ASHLEY -Admit pt to medical floor with telemetry -Start IV Zosyn, to be dosed by pharmacy -VICE PRESIDENT PRECISION MARKET INSIGHTS consult, with aspiration precautions -Reconciled pt's medications -Pt states that she is DNR, nursing team contacted the [facility], we were told she is full code. I spoke to her niece Marline, with Ellen her mom who is the pt's POA, and confirmed to me that the pt is full code, which I updated the chart with. She tells me her mom had similar symptoms and came to the ED yesterday but was discharged back as she had a respiratory infection but was not told that she had pneumonia 01/07/2025 patient is improving today still on oxygen though. She will need another day of IV antibiotics and if she is stable I will discharge her tomorr ow. Appreciate VICE PRESIDENT PRECISION MARKET INSIGHTS recommendations. 01/08/2025 patient is still coughing, I reviewed the chest x-ray showing CHF findings. I started on IV Lasix 40 mg twice daily. Her kidney function is baseline will monitor renal function closely tomorrow morning while on IV diuresis. Patient did have runs of hypotension earlier yesterday and was given a total of 500 mL bolus of NS as well as albumin by the night team. Does have 1+ pitting edema. Saturating well on 2 L nasal cannula. Will give her a challenge for IV diuresis and then will further monitor her. She will 3-day stay for insurance approval to go for SNF. Patient staying anyways. Discussed the plan with the patient and the nursing team at bedside.
[2025-01-08] MEDS: FUROSEMIDE 40 MG/4 ML VIAL IVP ×2 (10:08→21:16)
[2025-01-08 10:39] LABS: NT Pro B Type Natriuretic Pept 1437.0 pg/mL (<=1800.0)
--- NOTE | 2025-01-08 11:29 | SWNOTE1 ---
No discharge today for pt. SW did speak with pt about returning to [facility] and the benefits of having therapy when she returns for strengthening. SW let her know that therapy is recommending therapy at discharge. SW also let her know that she may need some speech therapy when returning as well. Pt voiced she does not feel she needs therapy and stated she was doing just fine. SW let her know that she would greatly benefit from it for a short time. She voiced she does not need speech either as she is eating fine here and at [facility]. SW to update Luis Miguel and Dr. Knight. SW reached out to Dr. Knight in regards to pt. Dr. Knight voiced concerns that pt may not have that capacity to understand. Michelle and Nasir from [facility] will come see pt today as well. SW updated case management as well. SW to call pt's contact listed, Ellen Lugo to explain the situation.
--- NOTE | 2025-01-08 11:47 | SWNOTE1 ---
RAMBO called Ellen, pt's sister, and updated her in regards to recommendations of returning to [facility] skilled and get PT/OT/ST. Pt's sister asked about payment and if Medicare covers. RAMBO advised that Medicare will cover skilled. Pt's sister did ask if pt is discharging today, RAMBO advised she is not and will update her tomorrow if pt is discharge ready. Sister in agreement with returning skilled.
[2025-01-08] MEDS: BACLOFEN 10 MG TABLET PO (13:07)
--- NOTE | 2025-01-08 16:00 | PT.DAILY ---
Physical Therapy Daily Note PT Daily Note/Assess Start: 01/07/25 10:53 Freq: Status: Active Protocol: Document 01/08/25 15:58 LINDA (Rec: 01/08/25 16:00 LINDA [id number]) Visit Not Completed Visit Not Completed Visit Not Completed Pt refusing Due to: Other Reason Visit Pt refused 2x. Reports she doesn't find therapy Not Completed necessary as she's been walking to the restroom. Pt is educucated on importants of PT while in acute setting - cont to refuse. Physical Therapy Daily Note/Assessment Time In/Time Out Time In 14:00 Time Out 14:02 GG. Functional Abilities and Goals-Complete for Swing Bed Patients Only [id number]. Self-Care [id number]. Mobility
[2025-01-08] MEDS: GUAIFENESIN 200 MG/10 ML LIQUID PO (17:18)
[2025-01-08] MEDS: 0.9 % SODIUM CHLORIDE 250 ML 10 ML IV (17:18)
[2025-01-08] MEDS: DONEPEZIL HCL 10 MG TABLET PO (21:16)
[2025-01-08] MEDS: CARVEDILOL 6.25 MG TABLET PO (21:17)
[2025-01-08] MEDS: TAMSULOSIN HCL 0.4 MG CAPSULE PO (21:17)
[2025-01-08] MEDS: POLYETHYLENE GLYCOL 3350 17 GM POWDER PACKET PO (21:18)
[2025-01-09] VITALS (15 sets, daily range): BP systolic 100–153; BP diastolic 67–104; PULSE 69–89; TEMP 36.4–36.7; O2SAT 90–95
[2025-01-09] MEDS: PIPERACILLIN SODIUM/TAZOBACTAM 3.375 GM in 0.9 % SODIUM CHLORIDE 50 ML IV ×3 (02:23→17:01)
[2025-01-09 05:49] LABS: Hematocrit 33.6 % (36.0-48.0); Hemoglobin 11.1 g/dL (12.0-16.0); Immature Granulocytes Abs Auto 0.09 10^3/uL (0.00-0.03); Immature Granulocytes Pct Auto 1.2 % (0.0-0.5); Lymphocytes Absolute Auto 1.6 10^3/uL (1.2-3.8); Mean Corpuscular HGB Conc 33.0 g/dL (29.9-35.2); Mean Corpuscular Hemoglobin 34.7 pg (26.7-34.0); Mean Corpuscular Volume 105.0 fL (81.0-99.0); Platelet Count 155 10^3/uL (150-450); Red Blood Count 3.20 10^6/uL (4.20-5.40); White Blood Count 7.4 10^3/uL (4.0-11.0)
[2025-01-09 06:19] LABS: Alanine Aminotransferase 15 U/L (14-59); Albumin Globulin Ratio 0.8; Albumin Level 3.3 g/dL (3.4-5.0); Alkaline Phosphatase 85 U/L (46-116); Anion Gap 11.5; Aspartate Amino Transferase 14 U/L (15-37); Blood Urea Nitrogen 30.0 mg/dL (7.0-18.0); Calcium 8.9 mg/dL (8.5-10.1); Carbon Dioxide 31.0 mmol/L (21.0-32.0); Chloride 105 mmol/L (98-107); Estimated GFR (African America 31 (>=60 mL/min/1.73m^2); Estimated GFR (Non-African Ame 25 (>=60 mL/min/1.73m^2); Globulin 3.9 g/dL; Glucose 90 mg/dL (74-106); Magnesium 2.1 mg/dL (1.8-2.4); Potassium 3.5 mmol/L (3.5-5.1); Sodium 144 mmol/L (136-145); Total Protein 7.2 g/dL (6.4-8.2)
[2025-01-09] MEDS: PANTOPRAZOLE SODIUM 40 MG TABLET.DR PO (06:38)
[2025-01-09] MEDS: VENLAFAXINE HCL ER 150 MG CAPSULE PO (08:54)
[2025-01-09] MEDS: APIXABAN 5 MG TABLET PO ×2 (08:54→20:25)
[2025-01-09] MEDS: LAMOTRIGINE 100 MG TABLET 150 MG PO (08:54)
[2025-01-09] MEDS: ESCITALOPRAM 10 MG TABLET PO (08:54)
[2025-01-09] MEDS: BACLOFEN 10 MG TABLET 20 MG PO (08:54)
[2025-01-09] MEDS: FERROUS SULFATE 325 MG TABLET PO (08:54)
[2025-01-09] MEDS: MULTIVITAMIN TABLET 1 TAB PO (08:54)
[2025-01-09] MEDS: PREDNISONE 5 MG TABLET PO (08:54)
[2025-01-09] MEDS: AMIODARONE HCL 200 MG TABLET 400 MG PO ×2 (08:54→20:25)
[2025-01-09] MEDS: CARVEDILOL 6.25 MG TABLET PO ×2 (08:54→20:25)
[2025-01-09] MEDS: CLONAZEPAM 0.5 MG TABLET PO ×3 (08:57→23:58)
[2025-01-09] MEDS: FUROSEMIDE 40 MG/4 ML VIAL IVP (09:01)
--- NOTE | 2025-01-09 10:00 | CM.NOTE ---
Rounds made with Dr. Knight, discussed plan of care with pt. No discharge today. Pt will discharge to [facility] when medically stable.
--- NOTE | 2025-01-09 11:30 | PT.DAILY ---
Physical Therapy Daily Note PT Daily Note/Assess Start: 01/07/25 10:53 Freq: Status: Active Protocol: Document 01/09/25 11:15 TARUN (Rec: 01/09/25 11:29 TARUN [id number]) Physical Therapy Daily Note/Assessment Time In/Time Out Time In 11:15 Time Out 11:25 Subjective Subjective Patient agrees to do exercises in chair, and that's it today. Therapeutic Exercise Time Therapeutic Exercise 10 Minutes (minutes) Therapeutic Exercise 1 Units Therapeutic Exercise Treatment Therapeutic Exercise Exercises of B LE are completed in both long sitting Treatment and seated positions 10 reps each with use of AROM and isometrics. Total Physical Therapy Time Total Therapy 10 Minutes Total Physical 1 Therapy Units Summary Daily Note Summary Demonstrates improved participation with agreement to complete exercises in chair for B LE strengthening. Patient tolerates 10 reps each of exercise with use of both AROM and isometrics. Patient declined ambulation with therapist today reporting that she is walking to and from bathroom with nursing and that is enough. Plan is for patient to return LTC to [facility] at [place] when medically able.
[2025-01-09] MEDS: GUAIFENESIN 200 MG/DEXTROMETHORPHAN 20 MG 10 ML UNIT DOSE CUP PO ×3 (11:40→20:24)
--- NOTE | 2025-01-09 12:11 | PM.PN ---
Progress Note: Subjective Subjective Interval history: Patient still has the cough however better than yesterday. It is dry as she mentions. No other issues overnight. Blood pressure is good. Continues to respond well to IV diuresis with a satisfactory urine output. Still on 2 L nasal cannula saturate 94% renal function remains stable around her baseline Exam Narrative Exam Narrative: Constitutional: Frail 74 y.o female, oriented x3, following commands with generalized weakness, morbid obesity, not in acute distress but ill appearing [facility] Common normals: normocephalic and head/scalp atraumatic Eye Common normals: PERRL and EOMs intact bilaterally Respiratory Common normals: Decreased air entry bilaterally with crackles, no wheezes, saturating 92% on 2-4 liters nasal cannula, she is not using accessory muscles, she is not using abdominal wall muscles, she is not using accessory muscles Cardio Common normals: normal rate, irregular rhythm, S1 normal heart sound and S2 normal heart sound GI Common normals: Normal to inspection, nondistended, normoactive bowel sounds present, soft to palpation and non-tender Extremity Common normals: 1+ pitting edema in bilateral extremities, intact peripheral pulses, bilateral venous ulcer (stasis dermatitis) Neuro Common normals: oriented x3, CN's II-XII intact bilaterally and moves all extremities but generally weak Constitutional Vital Signs, click to edit/add: Last Vital Signs Temp 98 F 01/09/25 08:00 Pulse 89 01/09/25 10:00 Resp 20 01/09/25 08:00 BP 135/86 01/09/25 08:00 Pulse Ox 94 L 01/09/25 09:27 O2 Del Method Nasal Cannula 01/09/25 09:27 O2 Flow Rate 2 01/09/25 09:27 Progress Note: Objective Labs Labs: Short CBC 01/09/25 Range/Units 05:41 WBC 7.4 (4.0-11.0) 10^3/uL Hgb 11.1 L (12.0-16.0) g/dL Hct 33.6 L (36.0-48.0) % Plt Count 155 (150-450) 10^3/uL BMP 01/09/25 05:41 Sodium 144 Potassium 3.5 Chloride 105 Carbon Dioxide 31.0 BUN 30.0 H Creatinine 1.92 H Glucose 90 Calcium 8.9 Liver Function 01/09/25 Range/Units 05:41 Total Bilirubin 0.3 (0.2-1.0) mg/dL AST 14 L (15-37) U/L ALT 15 (14-59) U/L Alkaline Phosphatase 85 (46-116) U/L Albumin 3.3 L (3.4-5.0) g/dL Progress Note: A&P Assessment and Plan (1) Acute hypoxic respiratory failure: (2) Aspiration pneumonia: (3) Chronic anticoagulation: (4) Obesity: (5) Sacroiliac dysfunction: (6) Lumbar spondylosis: (7) Debility: Plan Acute Hypoxic respiratory failure secondary to aspiration pneumonia Component of Acute diastolic CHF exacerbation CKD stage 2, no evidence of ASHLEY -Admit pt to medical floor with telemetry -Start IV Zosyn, to be dosed by pharmacy -BALANCE STAFF INSPECTOR consult, with aspiration precautions -Reconciled pt's medications -Pt states that she is DNR, nursing team contacted the [facility], we were told she is full code. I spoke to her niece Marline, with Ellen her mom who is the pt's POA, and confirmed to me that the pt is full code, which I updated the chart with. She tells me her mom had similar symptoms and came to the ED yesterday but was discharged back as she had a respiratory infection but was not told that she had pneumonia 01/07/2025 patient is improving today still on oxygen though. She will need another day of IV antibiotics and if she is stable I will discharge her tomorrow. Appreciate BALANCE STAFF INSPECTOR recommendations. 01/08/2025 patient is still coughing, I reviewed the chest x-ray showing CHF findings. I started on IV Lasix 40 mg twice daily. Her kidney function is baseline will monitor renal function closely tomorrow morning while on IV diuresis. Patient did have runs of hypotension earlier yesterday and was given a total of 500 mL bolus of NS as well as albumin by the night team. Does have 1+ pitting edema. Saturating well on 2 L nasal cannula. Will give her a challenge for IV diuresis and then will further monitor her. She will 3-day stay for insurance approval to go for SNF. Patient staying anyways. Discussed the plan with the patient and the nursing team at bedside. 01/09/2025 Pt still having cough, and on exam she does have crackles with decreased bilateral air entry, she is putting out good amount of fluids, renal function is stable so this gives me more room for another day of IV diuresis. She is going to SNF, tomorrow is a reasonable day for discharge if she continues to diurese well and if her kidney function remains stable with additional night dose of lasix today. Will switch her zosyn to unasyn. Discussed the plan with her sister, Ellen, over the plan, answered all her questions. She was appreciative of our efforts
[2025-01-09] MEDS: BACLOFEN 10 MG TABLET PO (13:46)
--- NOTE | 2025-01-09 15:20 | SWNOTE1 ---
Faxed updates to the [facility] and notified Michelle villalobos d/c today, possibly tomorrow.
[2025-01-09] MEDS: 0.9 % SODIUM CHLORIDE 250 ML 10 ML IV (17:01)
[2025-01-09] MEDS: POLYETHYLENE GLYCOL 3350 17 GM POWDER PACKET PO (20:24)
[2025-01-09] MEDS: TAMSULOSIN HCL 0.4 MG CAPSULE PO (20:25)
[2025-01-09] MEDS: DONEPEZIL HCL 10 MG TABLET PO (23:58)
[2025-01-10] VITALS (11 sets, daily range): BP systolic 110–162; BP diastolic 72–90; PULSE 69–77; TEMP 36.4–36.5; O2SAT 88–94
[2025-01-10] MEDS: PIPERACILLIN SODIUM/TAZOBACTAM 3.375 GM in 0.9 % SODIUM CHLORIDE 50 ML IV ×2 (02:35→09:57)
[2025-01-10 05:40] LABS: Hematocrit 33.5 % (36.0-48.0); Hemoglobin 11.2 g/dL (12.0-16.0); Immature Granulocytes Abs Auto 0.08 10^3/uL (0.00-0.03); Immature Granulocytes Pct Auto 1.1 % (0.0-0.5); Lymphocytes Absolute Auto 1.5 10^3/uL (1.2-3.8); Mean Corpuscular HGB Conc 33.4 g/dL (29.9-35.2); Mean Corpuscular Hemoglobin 35.0 pg (26.7-34.0); Mean Corpuscular Volume 104.7 fL (81.0-99.0); Platelet Count 164 10^3/uL (150-450); Red Blood Count 3.20 10^6/uL (4.20-5.40); White Blood Count 7.3 10^3/uL (4.0-11.0)
[2025-01-10 05:58] LABS: Alanine Aminotransferase 14 U/L (14-59); Albumin Globulin Ratio 0.9; Albumin Level 3.2 g/dL (3.4-5.0); Alkaline Phosphatase 77 U/L (46-116); Anion Gap 12.5; Aspartate Amino Transferase 14 U/L (15-37); Blood Urea Nitrogen 24.0 mg/dL (7.0-18.0); Calcium 8.9 mg/dL (8.5-10.1); Carbon Dioxide 31.9 mmol/L (21.0-32.0); Chloride 104 mmol/L (98-107); Estimated GFR (African America 38 (>=60 mL/min/1.73m^2); Estimated GFR (Non-African Ame 32 (>=60 mL/min/1.73m^2); Globulin 3.7 g/dL; Glucose 93 mg/dL (74-106); Magnesium 2.1 mg/dL (1.8-2.4); Potassium 3.4 mmol/L (3.5-5.1); Sodium 145 mmol/L (136-145); Total Protein 6.9 g/dL (6.4-8.2)
[2025-01-10] MEDS: PANTOPRAZOLE SODIUM 40 MG TABLET.DR PO (06:18)
[2025-01-10] MEDS: FERROUS SULFATE 325 MG TABLET PO (08:28)
[2025-01-10] MEDS: VENLAFAXINE HCL ER 150 MG CAPSULE PO (08:28)
[2025-01-10] MEDS: APIXABAN 5 MG TABLET PO (08:28)
[2025-01-10] MEDS: AMIODARONE HCL 200 MG TABLET 400 MG PO (08:28)
[2025-01-10] MEDS: ESCITALOPRAM 10 MG TABLET PO (08:28)
[2025-01-10] MEDS: BACLOFEN 10 MG TABLET 20 MG PO (08:28)
[2025-01-10] MEDS: CLONAZEPAM 0.5 MG TABLET PO (08:28)
[2025-01-10] MEDS: MULTIVITAMIN TABLET 1 TAB PO (08:28)
[2025-01-10] MEDS: LAMOTRIGINE 100 MG TABLET 150 MG PO (08:28)
[2025-01-10] MEDS: PREDNISONE 5 MG TABLET PO (08:28)
[2025-01-10] MEDS: CARVEDILOL 6.25 MG TABLET PO (08:28)
--- NOTE | 2025-01-10 08:46 | SWNOTE1 ---
2nd notice of Important Message from Medicare reviewed with pt. No questions or concerns at this time.
--- NOTE | 2025-01-10 09:39 | PT.DAILY ---
Physical Therapy Daily Note PT Daily Note/Assess Start: 01/07/25 10:53 Freq: Status: Active Protocol: Document 01/10/25 09:35 TARUN (Rec: 01/10/25 09:39 TARUN [id number]) Visit Not Completed Visit Not Completed Visit Not Completed Other Due to: Other Reason Visit Patient declined RX this AM due to still eating Not Completed breakfast, did not want to get up into chair to finish eating. Educated patient that it would be easier and better to eat in chair but patient continued to decline at this time. Physical Therapy Daily Note/Assessment Time In/Time Out Time In 09:35 Time Out 09:35 GG. Functional Abilities and Goals-Complete for Swing Bed Patients Only [id number]. Self-Care [id number]. Mobility
--- NOTE | 2025-01-10 12:31 | SWNOTE1 ---
RAMBO spoke to Dr. Adrian and pt will discharge today. RAMBO reached out to nurse and pt can go by wheelchair. RAMBO called [facility], no transport available. RAMBO called trips and they will transport at . RAMBO notified nursing, [facility], and pt's sister. RAMBO completed [facility] online. RAMBO faxed dc med rec to [facility]. Pt is going to [facility].
--- NOTE | 2025-01-10 13:03 | SWNOTE1 ---
SW called pt's sister and let her know time.
--- NOTE | 2025-01-10 13:31 | P.DS_ITS ---
DS: Providers Provider Date of admission: 01/06/25 09:03 Primary care physician: Benjamín Navarrete MD Consults: 01/06/25 Physical Therapy Eval and Treat Routine Reason for consultation: weakness Has provider been notified: Yes 01/06/25 09:31 Consult to Pharmacy Routine Consulting Provider: Reason for consultation: Dosing Zosyn with CKD, for aspiration pneumonia 01/06/25 09:50 Speech Therapy Eval and Treat Routine Reason for consultation: Aspiration pneumonia 01/08/25 08:43 Speech Therapy Eval and Treat Routine Reason for consultation: concern for aspiration DS: Diagnosis Discharge Diagnosis (1) Acute hypoxic respiratory failure: (2) Aspiration pneumonia: Qualifiers: Aspiration pneumonia type: unspecified Laterality: bilateral Lung location: upper lobe of lung Qualified Code(s): J69.0 - Pneumonitis due to inhalation of food and vomit (3) Chronic anticoagulation: (4) Obesity: Qualifiers: Obesity type: due to excess calories Obesity classification: adult class 2 (BMI 35 - 39.9) Serious obesity comorbidity presence: with serious comorbidity Body mass index: BMI 39.0-39.9 Qualified Code(s): E66.812 - Obesity, class 2; E66.01 - Morbid (severe) obesity due to excess calories; Z68.39 - Body mass index [BMI] 39.0-39.9, adult (5) Sacroiliac dysfunction: (6) Lumbar spondylosis: (7) Debility: DS: Summary Hospital Course Hospital Course: This is a 74-year-old woman, who resides at a long-term care facility, who presented with increased coughing, increased oxygen requirements, and concern for aspiration pneumonia. She was admitted here to [facility]. She was started on IV Zosyn. She had a speech therapy consultation. She also had some volume overload and was given IV diuretics. CT scanning of her chest showed partial opacification of the left upper and lower lobe, which was likely due to aspirated material. She also has a incidental finding of a pleural-based noncalcified 6 mm nodule along the major fissure on the left. She will need a follow-up low-dose CT scan of the chest in 6 months. An echocardiogram shows a preserved left ventricular ejection fraction of 55%. During the entire hospital stay her white blood count remained normal at 7.9, 7.9, 8.5, 7.4, and 7.3. She did have a very thick and very harsh but ultimately nonproductive cough that will be very slow to improve. She can barely expectorate any mucus. Blood cultures x 2 were negative, but no sputum culture could be obtained during the hospital stay. During the hospital stay her creatinine had a general trend towards improvement, being 1.69, then 1.86, then 1.89, then 1.92, but then 1.59 on the last hospital day. At the end of this hospital stay her long-term care facility will be putting her on the skilled side for additional physical therapy and Occupational Therapy and then return her to her extended care facility situation. Status at Discharge Functional status at discharge: uses cane/walker Overall status at discharge: patient is progressing back to baseline Time Spent with Patient Time attestation: Total time spent providing and/or coordinating discharge services: 39. Time spent: greater than 30 minutes Exam Narrative Exam Narrative: General: Reclining in bed. Able to speak in full sentences. Pulmonary: Scattered very thick harsh cough throughout all lung bernard. No wheezing. No focal areas of crackles. Cardiac: Regular rate and rhythm. No murmurs to auscultation. GI: Abdomen soft, normal bowel sounds to auscultation. Lower extremities: She does have chronic looking edema to the lower extremities from her knees down to her ankles bilaterally. Constitutional Vital Signs, click to edit/add: Last Vital Signs Temp 97.7 F 01/10/25 08:33 Pulse 69 01/10/25 11:46 Resp 16 01/10/25 08:33 BP 123/72 01/10/25 08:33 Pulse Ox 92 L 01/10/25 11:27 O2 Del Method Nasal Cannula 01/10/25 11:27 O2 Flow Rate 1 01/10/25 11:27 DS: Data Data Completed and Pending Labs on day of discharge: Labs from last 24 hours 01/10/25 05:15 WBC 7.3 RBC 3.20 L Hgb 11.2 L Hct 33.5 L MCV 104.7 H MCH 35.0 H MCHC 33.4 RDW 13.0 Plt Count 164 MPV 9.5 Neut % (Auto) 64.2 Lymph % (Auto) 20.7 Huron % (Auto) 10.0 Eos % (Auto) 3.2 Baso % (Auto) 0.8 Neut # (Auto) 4.7 Lymph # (Auto) 1.5 [place] # (Auto) 0.7 Eos # (Auto) 0.2 Baso # (Auto) 0.1 Abs Immat Gran (auto) 0.08 H Imm/Tot Granulo (auto) 1.1 H Sodium 145 Potassium 3.4 L Chloride 104 Carbon Dioxide 31.9 Anion Gap 12.5 BUN 24.0 H Creatinine 1.59 H Est GFR ( Amer) 38 L Est GFR (Non-Af Amer) 32 L BUN/Creatinine Ratio 15.1 Glucose 93 Calcium 8.9 Magnesium 2.1 Total Bilirubin 0.4 AST 14 L ALT 14 Alkaline Phosphatase 77 Total Protein 6.9 Albumin 3.2 L Globulin 3.7 Albumin/Globulin Ratio 0.9 Preliminary micro results at discharge 01/06/25 08:49 Blood Culture Result 2 - Preliminary Blood NO GROWTH AT 36-48 HOURS. FINAL TO FOLLOW. 01/06/25 08:33 Blood Culture Result 1 - Preliminary Blood NO GROWTH AT 36-48 HOURS. FINAL TO FOLLOW. Discharge Plan Discharge Disposition: Xfer SNF Condition: Fair Discharge Medications: New carvedilol 6.25 mg Tablet 6.25 mg PO BID Qty: 0 0RF clonazepam 0.5 mg Tablet 0.5 mg PO QHS 5 Days Qty: 5 0RF Rx Instructions: This script is for initial use at the [facility]. Further refills per SNF providers. benzonatate 100 mg Capsule 100 mg PO Q8H PRN (Reason: Cough) 10 Days Qty: 0 0RF guaifenesin 100 mg/5 mL Liquid 200 mg PO Q6H PRN (Reason: Cough) Qty: 0 0RF doxycycline hyclate 100 mg tablet 100 mg PO BID 10 Days Qty: 20 0RF spironolactone 25 mg tablet 12.5 mg PO DAILY Qty: 30 0RF prednisone 10 mg tablet 10 mg PO DAILY Qty: 15 0RF Rx Instructions: 50 mg po Q am x 1 day, then 40 mg po Q am x 1 day then 30 mg po qam x 1 day, then 20 mg po qam x 1 day, then 10 mg po on the last day, and then go on with 5 mg daily as she has done for a long time. Continued Eliquis 5 mg tablet 5 mg PO BID baclofen 10 mg tablet 10 mg PO DAILY@1400 dapagliflozin propanediol [Farxiga] 10 mg tablet 10 mg PO DAILY ferrous sulfate [Feosol] 325 mg (65 mg iron) tablet 325 mg PO DAILY lamotrigine 150 mg tablet 150 mg PO DAILY escitalopram oxalate [Lexapro] 10 mg tablet 10 mg PO DAILY losartan 25 mg tablet 25 mg PO DAILY multivitamin with iron Tablet 1 tab PO DAILY pantoprazole 40 mg tablet,delayed release (DR/EC) 40 mg PO DAILY polyethylene glycol 3350 [Miralax] 17 gram powder in packet 17 g PO DAILY PRN (Reason: laxative) potassium chloride 10 mEq tablet extended release 10 meq PO BID tamsulosin 0.4 mg capsule 0.4 mg PO .QHS baclofen 20 mg tablet 20 mg PO QAM donepezil [Aricept] 10 mg tablet 10 mg PO .QHS furosemide 20 mg tablet 60 mg PO DAILY olanzapine 15 mg tablet 15 mg PO .QHS venlafaxine [Effexor XR] 150 mg capsule,extended release 24hr 150 mg PO DAILY acetaminophen 325 mg capsule 650 mg PO Q6H PRN (Reason: pain) amiodarone 200 mg tablet 400 mg PO Q12H prednisone 5 mg tablet 5 mg PO DAILY clonazepam 0.5 mg tablet 0.5 mg PO TID 5 Days Qty: 15 0RF Rx Instructions: This script is for initial use at the SNF. Further refills of this long-term medication at the SNF is to come from SNF providers. hydrocodone-acetaminophen 7.5-325 mg tablet 1 tab PO TID PRN (Reason: PAIN 7-10) 5 Days Qty: 15 0RF Rx Instructions: This script is for SNF use. Further refills while at the SNF is to come from SNF providers. fentanyl 50 mcg/hr patch 72 hour 1 patch transdermal Q72H 6 Days Qty: 2 0RF Rx Instructions: This script is for SNF use. Further refills while at the SNF is to come from SNF providers. Discontinued carvedilol [Coreg] 25 mg tablet 25 mg PO BID Rx Instructions: must administer with a meal/food dextromethorphan-guaifenesin [Adult Tussin Cough Congest DM] 10-100 mg/5 mL liquid 10 ml PO Q4H PRN (Reason: cough) Print Language: Argentine Catalogue Clerk/Grants Director Instructions: Discharge to [facility] Forms: Portal Instructions
== END 2025-01-10 13:51 | DRG 177 ==
LOC: ER 08:16 → MS 09:09
PROVIDERS: Internal Medicine; Admitting Provider Student in an Organized Health Care Education/Training Program; Emergency Provider Emergency Medicine; PCP Family Medicine; Visit Provider Student in an Organized Health Care Education/Training Program
DX: J69.0 Pneumonitis due to inhalation of food and vomit (principal); I50.33 Acute on chronic diastolic (congestive) heart failure; J96.01 Acute respiratory failure with hypoxia; I13.0 Hypertensive heart and chronic kidney disease with heart failure and stage 1 through stage 4 chronic kidney disease, or unspecified chronic kidney disease; J94.8 Other specified pleural conditions; I48.91 Unspecified atrial fibrillation; K21.9 Gastro-esophageal reflux disease without esophagitis; I12.9 Hypertensive chronic kidney disease with stage 1 through stage 4 chronic kidney disease, or unspecified chronic kidney disease; N18.2 Chronic kidney disease, stage 2 (mild); D86.9 Sarcoidosis, unspecified; Z68.39 Body mass index [BMI] 39.0-39.9, adult; F31.9 Bipolar disorder, unspecified; R53.81 Other malaise; I95.9 Hypotension, unspecified; E66.812 Obesity, class 2; Z79.01 Long term (current) use of anticoagulants; Z79.899 Other long term (current) drug therapy; Z79.52 Long term (current) use of systemic steroids; Z88.1 Allergy status to other antibiotic agents; Z95.0 Presence of cardiac pacemaker
CPT/HCPCS: 36415; 71046; 71250; 80048; 80053; 83605; 83735; 83880; 84100; 84484; 85025; 87040; 92526; 92610; 93005; 93306; 94761; 97110; 97163; 99285; J1720; J1938; J2543; J7512; P9046

== ENCOUNTER 2025-02-04 11:13 | Outpatient (OUT) | payer MEDICARE, OTHER, MEDICAID, SELFPAY ==
--- OUTSIDE RECORDS SUMMARY | 2025-02-04 11:15 | XMS_ITS | Encounter Summary ---
Author Organization [facility] Address [address] [address] Care Team Providers Care Joint Yarner Name Role Phone Benjamín Navarrete MD Primary Care Provider [phone] Encounter Details Date Type Department Care Team (Late st Contact Info) Description 12/23/2024 Orders Only [facility] [address] [place] [address] Enoch Lange MD [address] [place] [id number] Social History Tobacco Use Types Packs/Day Years Used Date Smoking Tobacco: Former Cigarettes Smokeless Tobacco: Never Alcohol Use Standard Drinks/Week Comments Never 0 [...] not to disclose 2021 6:36 PM EST documented as of this encounter Plan of Treatment Not on file documented as of this encounter Procedures Procedure Name Priority Date/Time Associated Diagnosis Comments CARDIAC DEVICE CHECK - REMOTE - PACEMAKER Routine 12/23/2024 12:00 AM EDT documented in this encounter Results * Cardiac device check - Remote pacemaker (12/23/2024 12:00 AM EDT) Anatomical Region Laterality Modality Other 12/23/2024 Enoch Lange MD CV IMPLANTABLE CARDIAC DEVICE NC OCEDURES Final Result documented in this encounter Visit Diagnoses Not on filedocumented in this encounter Care Teams Joint Yarner Relationship Specialty Start Date End Date Benjamín Navarrete MD [address] [place] [address] PCP - General 05/23/22 documented as of this encounter
--- OUTSIDE RECORDS SUMMARY | 2025-02-04 11:15 | XMS_ITS | Clinical Summary ---
Author Organization [facility] Address [address] [address] Care Team Providers Care Dragline Operator Helper Name Role Phone Benjamín Navarrete MD Primary Care Provider [phone] Allergies Active Allergy Reactions Criticality Noted Date Comments Cephalexin Unknown 12/06/2023 House Dust Unknown 11/18/2013 Pollen Extracts Unknown [...] start before April 30, 2022. 30 tablet 04/30/20 Active Additional Information Patient not taking.Reported on 12/31/2024 lamoTRIgine (LaMICtal) 150 mg tabletIndication s:Bipolar affective disorder, currently depressed, mild (CMS/HCC),Anxiet y and depression Take 1 tablet (150 mg) by mouth in the morning. Do not start before April 30, 2022. 30 tablet 04/30/20 22 Active losartan (Cozaar) 25 mg tabletIndication s:HFrEF (heart failure with reduced ejection fraction) (CMS/HCC),Crespo ry artery disease involving council coronary artery of council heart without angina pectoris Take 1 tablet (25 mg) by mouth in the morning. Do not start before April 30, 2022. 30 tablet 04/30/20 22 Active pantoprazole (ProtoNix) 40 mg EC tabletIndication s:Gastroesophage al reflux disease without esophagitis Take 1 tablet (40 mg) by mouth before breakfast. Do not crush, chew, or split. Do not start before April 30, 2022. 30 tablet 04/30/20 22 Active clonazePAM (KlonoPIN) 0.5 mg tabletIndication s:Bipolar affective disorder, currently depressed, mild (CMS/HCC),Anxiet y and depression Take 1 tablet (0.5 mg) by mouth in the morning, at noon, and at bedtime for 2 days. 6 tablet 04/29/20 22 Active baclofen (Lioresal) 10 mg tablet Take 10 mg by mouth in the morning, at noon, and at bedtime. Active dapagliflozin (Farxiga) 10 mgIndications:Ch ronic systolic heart failure (CMS/HCC) Take 1 tablet (10 mg) by mouth in the morning. 30 tablet 11 05/23/20 22 Active furosemide (Lasix) 20 mg tabletIndication s:Chronic systolic heart failure (CMS/HCC) Take 1 tablet (20 mg) by mouth in the morning. 30 tablet 11 05/23/20 22 Active escitalopram (Lexapro) 10 mg tablet Take 10 mg by mouth. 06/15/19 23 Active apixaban (Eliquis) 5 mg tabletIndication s:Paroxysmal atrial fibrillation (CMS/HCC) Take 1 tablet (5 mg) by mouth in the morning and at bedtime. 180 tablet 3 09/15/19 23 Active HYDROcodone-acet aminophen ([place]) 7.5-325 mg tablet 01/31/20 23 Active donepezil (Aricept) 10 mg tablet 04/03/20 23 Active fentaNYL (Duragesic) 50 mcg/hr 1 patch to skin Transdermal q 72 hours for 30 days 03/27/20 23 Active venlafaxine XR (Effexor-XR) 150 mg 24 hr capsule Take 150 mg by mouth in the morning. 04/08/20 24 Active multivitamin tablet Take 1 tablet by mouth in the morning. Active predniSONE (Deltasone) 5 mg tablet Take 5 mg by mouth in the morning. Active diclofenac (Voltaren Arthritis Pain) 1 % topical gel Apply 4 g topically if needed in the morning, at noon, in the evening, and at bedtime for pain. Active acetaminophen (Tylenol 8 Hour) 650 mg ER tablet Take 650 mg by mouth every 8 (eight) hours if needed for mild pain (1-3 pain score). Do not crush, chew, or split. Active levoFLOXacin (Levaquin) 750 mg tablet Take 750 mg by mouth in the morning. 12/29/19 25 Active amiodarone (Pacerone) 200 mg tabletIndication s:Paroxysmal atrial fibrillation (CMS/HCC) Take 2 tablets (400 mg) by mouth two times daily for 14 days, THEN 1 tablet (200 mg) once daily as directed. 146 tablet 01/14/20 25 025 Active amiodarone (Pacerone) 200 mg tabletIndication s:Paroxysmal atrial fibrillation (CMS/HCC) Take 2 tablets (400 mg) by mouth two times daily for 14 days, THEN 1 tablet (200 mg) in the morning. 146 tablet 01/01/20 25 025 Discontin ued(Reord er) Active Problems Problem Noted Date Diagnosed Date Chronic venous stasis dermatitis of both lower e xtremities 05/21/2024 Leukocytosis 05/21/2024 HFrEF (heart failure with reduced ejection fract ion) 04/27/2022 Cellulitis of right lower extremity 04/24/2022 Closed fracture of pelvis with nonunion 04/24/20 NSTEMI (non-ST elevated myocardial infarction) 1 06/24/2021 Acute encephalopathy 04/23/2022 Coronary artery disease invo lving council coronary artery of council heart without angina pectoris 04/23/2022 Sinus node [...] Sarcoidosis 11/18/2013 Bradycardia 11/18/2013 Sleep apnea 11/18/2013 Encounters Date Type Department Care Team Description 01/13/2025 Orders Only [address] [address] Esthela Couch MA Paroxysmal atrial fibrillation (CMS/HCC) 12/31/2024 10:45 AM EDT Office Visit [address] [address] Enoch Lange MD Persistent atrial fibrillation (CMS/HCC) (Primary Dx) 12/31/2024 10:15 AM EDT Ancillary Procedure [address] [phone] Encounter for implantable defibrillator reprogramming or check 12/31/2024 Orders Only [address] [phone] Ivet Salvador MA Paroxysmal atrial fibrillation (CMS/HCC) (Primary Dx) 12/23/2024 4:35 AM EDT Ancillary Procedure [facility] [address] [place] [phone] Adjustment and management of cardiac pacemaker 12/23/2024 Orders Only [facility] [address] [place] [phone] Enoch Lange MD from Last 3 Months Immunizations Immunization Administration Dates Next Due Covid [...] 05/03/2019,06/2016 Zoster, Recombinant 01/05/2021,11/04/2020 Zoster, live 04/21/2015,03/25/2013 Family History Medical History Relation Name Comments Stroke Father Lung cancer Mother Relation Name Status Comments Father Mother Social History Tobacco Use Types Packs/Day Years [...] Sign Reading Time Taken Comments Blood Pressure 118/68 12/31/2024 10:33 AM EDT Pulse 62 12/31/2024 10:33 AM EDT Temperature 36.8 C (98.2 F) 04/29/2022 3:37 PM EST Respiratory Rate 14 04/29/2022 3:37 PM EST Oxygen Saturation 91% 12/31/2024 10:33 AM EDT Inhaled Oxygen Concentration - - Weight 113 kg (249 lb) 12/31/2024 10:33 AM EDT Height 165.1 cm (5' 5 ) 12/31/2024 10:33 AM EDT Body Mass Index 41.44 12/31/2024 10:33 AM EDT Plan of Treatment Health Maintenance Due Date Last Done Comments Medicare Annual Wellness (AWV) 1950 Depression Screening 1960 Adult Tetanus 1970 Fall Risk Screening 2013 COVID-19 Vaccine ( season) 2024 03/11/2022, 09/10/2021, 09/10/2021, Additional history exists Influenza Vaccine (#1) 2025 , 03/11/2022, 03/29/2021, Additional history exists Mammogram Discontinued 10/02/2018 Zoster Vaccines Completed 01/05/2021, 05/2 11/2020, 04/21/2015, Additional history exists Pneumococcal Vaccine: 50+ Years Completed 09/19/2024, 05/03/2019, 04/26/2017, Additional history exists HIB Vaccines Aged Out No longer eligi ble based on patient's age to complete this topic HPV Vaccines Aged Out No longer eligi ble based on patient's age to complete this topic IPV Vaccines Aged Out No longer eligi ble based on patient's age to complete this topic Meningococcal B Vaccine Aged Out No l onger eligible based on patient's age to complete this topic Meningococcal Vaccine Aged Out No mahendra aniya eligible based on patient's age to complete this topic Rotavirus Vaccines Aged Out No longer eligible based on patient's age to complete this topic Procedures Procedure Name Priority Date/Time Associated Diagnosis Comments CARDIAC DEVICE CHECK CHECK - REMOTE Routine 01/06/2025 10:55 AM EDT Adjustment and management of cardiac pacemaker CARDIAC DEVICE CHECK - IN CLINIC - PACEMAKER DUAL CHAMBER W/ PROG Routine 01/03/2025 9:46 AM EDT Encounter for implantable defibrillator reprogramming or check ECG 12-LEAD Routine 12/31/2024 4:43 PM EDT CARDIAC DEVICE CHECK - REMOTE - PACEMAKER Routine 12/23/2024 12:00 AM EDT from Last 3 Months Results * CARDIAC DEVICE CHECK - REMOTE - PACEMAKER (01/06/2025 10:55 AM EDT) BSA 2.28 m2 [facility] Enoch Lange MD CV IMPLANTABLE CARDIAC DEVICE OR OCEDURES Final Result CPACS * CARDIAC DEVICE CHECK - IN CLINIC - PACEMAKER DUAL CHAMBER W/ PROG (01/03/2025 9:46 AM EDT) BSA 2.28 m2 PACS CARDIO Anatomical Region Laterality Modality Other Narrative 01/07/2025 10:18 AM EDT By using the attestations below, the signing clinician agrees that I have read and verify that the documentation has been personally reviewed by me and ensure that the documentation accurately reflects the encounter. Routine EP device follow up as per schedule. Please see attached note Enoch Lange MD CV IMPLANTABLE CARDIAC DEVICE OR OCEDURES Final Result * ECG 12 lead (12/31/2024 4:43 PM EDT) Nacho Cao MD ECG ORDERABLES Final Res ult * Cardiac device check - Remote pacemaker (12/23/2024 12:00 AM EDT) Anatomical Region Laterality Modality Other 12/23/2024 us Enoch Lange MD CV IMPLANTABLE CARDIAC DEVICE OR OCEDURES Final Result from Last 3 Months Insurance [place] [address] MEDICAID [place] Advance Directives * Full Code (Latest Code Status on File) Date Activated Date Inactivated Comments 04/23/2022 9:18 PM 04/29/2022 11:01 PM Care Teams Dragline Operator Helper Relationship Specialty Start Date End Date Benjamín Navarrete MD [address] [facility] [place] [address] PCP - General 05/23/22
--- OUTSIDE RECORDS SUMMARY | 2025-02-04 11:15 | XMS_ITS | Clinical Summary ---
Author Organization [facility] Address [address] [place] [address] Care Team Providers Care Radio Producer Name Role Phone Benjamín Mehta MD Primary Care Provider [phone] Social History Tobacco Use Types Packs/Day Years [...] Due Date Last Done Comments Influenza Vaccine (#1) 2025 , 03/29/2021, 03/03/2020, Additional history exists Mammogram Discontinued [...] Narrative 10/02/2018 12:00 AM EDT PERFORMED AT [facility] LOCATION:[place] [address] Patient: TIGIST MARCIAL. Exam Date: 10/02/2018 : 1950 Gender:F Ordering : DR MAGGI MONROY Admission #: [id number] Family : DR BENJAMÍN MEHTA . Order #: [id number] CLICK HERE TO VIEW EXAM RADIOLOGY REPORT [...] with lung cancer at age 68. LOCATION: [facility] BREAST COMPOSITION: Heterogeneously dense, which may obscure [...] Note CONVERSION, GENERIC - 12/16/2022 PERFORMED AT [facility] LOCATION:[place] [id number] Patient: TIGIST MARCIAL. Exam Date: 10/02/2018 : 1950 Gender:F Ordering : DR MAGGI MONROY Admission #: [id number] Family : DR BENJAMÍN MEHTA . Order #: [id number] CLICK HERE TO VIEW EXAM RADIOLOGY REPORT [...] lung cancer at age 68. LOCATION: The BREAST COMPOSITION: Heterogeneously dense, which may obscuresmall [...] Relevant to Health Maintenance Insurance MEDICARE [employer] Care Teams Radio Producer Relationship Specialty Start Date End Date Benjamín Mehta MD PCP - General Family Medicine 12/09/22
--- OUTSIDE RECORDS SUMMARY | 2025-02-04 11:15 | XMS_ITS | Clinical Summary ---
Author Organization [facility] Address [address] [facility] [place] [address] Care Team Providers Care Identity Management Consultant Name Role Phone Unavailable Primary Care Provider Unavailabl e Source Comments The following information is NOT included in Care Everywhere downloads:Psychiatric notes, ECG results, Cardiac Rehab notes, Pulmonary Function notes, data from SmartForms (includes but not limited toPregnancy data,audiograms, eye exams, pre-surgical evaluation notes, well-child exam data).[facility] Immunizations Immunization Administration Dates Next Due DTP (CVX=01) 04/20/2021 Influenza, injectable, adjuv anted, quadrivalent, preservative free (TTD=140) 03/29/2021 Influenza, injectable, high dose seasonal, trivalent, preservative free (BYA=007) 03/18/2019,02/17/2018,03/12/2017,02/23 Influenza, injectable, high- dose seasonal, quadrivalent, preservative free (XUO=702) 03/11/2022 Influenza, injectable, quadr ivalent, preservative (DFE=625) 03/12/2018 Influenza, unspecified formu lation (CVX=88) 03/03/2020 Pfizer Monovalent (12+ yrs) SARS-COV-2 (COVID-19) vaccine, mRNA, spike protein, LNP, pres. free, 30 mcg/0.3mL dose (URA=258) 07/13/2020,06/19/2020 Pneumococcal conjugate 13 va lent (PCV13) (QIC=323) 04/26/2017 Pneumococcal polysaccharide 23 Valent (PPSV23) (CVX=33) 05/03/2019,04/12/2017 Zoster Live (ZVL,Shingles) (XKR=524) 04/21/2015, 03/25/2013 Zoster Recombinant (RZV,Gamino gles) (FOJ=083) 01/05/2021,11/04/2020 Social History Tobacco Use Types Packs/Day Years Used Date Smoking Tobacco: Never Assessed Comments Unknown Sex and Gender Information Value Date Recorded Sex Assigned at Not on file Legal Sex Female 10:04 AM EST Gender Identity Not on file Sexual Orientation Not on file Last Filed Vital Signs Vital Sign Reading Time Taken Comments Blood Pressure 115/68 03/24/2022 1:31 AM EDT Pulse 60 03/24/2022 1:31 AM EDT Temperature - - Respiratory Rate 20 03/24/2022 1:31 AM EDT Oxygen Saturation 95% 03/24/2022 1:31 AM EDT Inhaled Oxygen Concentration - - Weight - - Height - - Body Mass Index - - Plan of Treatment Health Maintenance Due Date Last Done Comments Hepatitis C Antibody 1966 Tdap Booster 1966 Hepatitis A (HAV) Vaccine (optional start 19+ years) 1967 Annual Wellness Visit (G0438) 01/10/2003 Hepatitis B (HBV) Vaccine (optional start 60+ years) 2008 Bone Densitometry 2013 RSV vaccine (adult) (1 - 1-d ose 75+ series) 2023 COVID-19 Vaccine (2023-2 5 season) 2024 03/11/2022, 09/10/2021, 03/15/2021, Additional history exists Influenza Vaccine (#1) 2025 2, 03/29/2021, 03/03/2020, Additional history exists Pneumococcal Vaccine(s) (50+ yrs) Completed 05/03/2019, 04/26/2017, 04/12/2017 Shingles (RZV) Vaccine Completed , 11/04/2020, 04/21/2015, Additional history exists Pap Smear Discontinued Insurance [employer]ICARE
--- OUTSIDE RECORDS SUMMARY | 2025-02-04 11:15 | XMS_ITS | Clinical Summary ---
Author Organization [facility] Address [address] [place], [place] [address] Care Team Providers Care Fraud Manager Name Role Phone Benjamín Navarrete MD Primary Care Provider [phone] Allergies Active Allergy Reactions Criticality Noted Date Comments Dust Unknown 11/18/2013 Pollen Unknown 11/18/2013 Medications olmesartan (BENICAR) 40 mg tablet Take 40 mg by mouth once daily. Active pravastatin 20 mg tablet Take 20 mg by mouth once daily. Active aspirin, enteric coated 81 mg EC tablet Take 81 mg by mouth once daily. Active FLUoxetine HCl 40 mg capsule Take 60 mg by mouth once daily. Active lamoTRIgine 100 mg tablet Take 100 mg by mouth once daily. Active OLANZapine 10 mg tablet Take 10 mg by mouth daily at bedtime. Active tiZANidine HCl 4 mg capsule Take 4 mg by mouth twice daily. Active prednisoLONE acetate (OMNIPRED) 1 % ophthalmic suspension Use 1 Drop in both eyes once daily. Active DICLOFENAC SODIUM ORAL Take by mouth twice daily. Active Active Problems Problem Noted Date Diagnosed Date Chest pain 08/25/2014 Bradycardia 11/18/2013 Sleep apnea 11/18/2013 Sarcoidosis 11/18/2013 Hypertension 11/18/2013 Family History Medical History Relation Comments Stroke Father Cancer Mother lung Relation Status Comments Father Mother Social History Tobacco Use Types Packs/Day Years Used Date Smoking Tobacco: Former Smokeless Tobacco: Never Alcohol Use Standard Drinks/Week Comments No 0 (1 standard drink = 0.6 oz pur e alcohol) Comments Unknown Sex and Gender Information Value Date Recorded Sex Assigned at Not on file Legal Sex Female 8:06 AM EDT Gender Identity Not on file Sexual Orientation Not on file Occupation Industry Job Start Date Job End Date Retired Not on file Not on file Not on file Last Filed Vital Signs Vital Sign Reading Time Taken Comments Blood Pressure 122/73 08/31/2015 9:27 AM EDT Pulse 60 08/31/2015 9:27 AM EDT Temperature 36.9 C (98.4 F) 08/31/2015 9:27 AM EDT Respiratory Rate 16 08/31/2015 9:27 AM EDT Oxygen Saturation 96% 08/31/2015 9:27 AM EDT Inhaled Oxygen Concentration - - Weight 116.1 kg (256 lb) 08/31/2015 9:27 AM EDT Height 165.1 cm (5' 5 ) 08/31/2015 9:27 AM EDT Body Mass Index 42.6 08/31/2015 9:27 AM EDT Plan of Treatment Health Maintenance Due Date Last Done Comments Anxiety Screening 1966 Depression Screening 1966 Hepatitis C Screening 1966 DTaP,Tdap,Td Vaccine (1 - Tdap) 1967 Diabetes Screening 1993 Pneumococcal Vaccine: 50+ (1 of 1 - PCV) 1998 Shingrix Vaccine (1 of 2) 1998 Bone Density Screening 2013 RSV Vaccine (1 - 1-dose 75+ series) 2023 Advance Directive Discussion 06/12/2024 Influenza Vaccine (#1) 2025 Insurance MEDICARE [facility] Care Teams Fraud Manager Relationship Specialty Start Date End Date Benjamín Navarrete MD PCP - General Family Medicine 11/01/13
--- OUTSIDE RECORDS SUMMARY | 2025-02-04 11:20 | XMS_ITS | CCD ---
Author Organization [facility] Care Team Providers Care Lather Apprentice Name Role Phone ROBERTA VELA Admitting Unavailable RADHA ARROYOIR Referring Unavailable BILLY LOZADA Attending Unavailable AVE MEHTA Primary Care Unavailable Gunnar Fernandez Unavailable Rancho [place] Unavailable Emilie Perez Unavailable PROVIDER, UNKNOWN Admitting Unavailable PROVIDER, UNKNOWN Attending Unavailable JANINE ., DR DORADO Primary Care Unavailable HOY ., DR DORADO Admitting Unavailable HOMilo ., DR DORADO Consulting Unavailable HOMilo ., DR DORADO Attending Unavailable MARKER ., DR CURTIS Consulting Unavailable LEÓN DIAS Consulting Unavailable AUDRA LAGOS Consulting Unavailable CARITO BULLOCK Consulting Unavailable MARE JAIMES Consulting Unavailable LEÓN DIAS Admitting Unavailable LARISSA PETER Mallory Attending Unavailable JANINE ., DR DORADO Primary Care Unavailable JANINE ., DR DORADO Primary Care Unavailable SHERIE OLMOS Attending Unavailable SHERIE OLMOS Admitting Unavailable JANINE ., DR DORADO Primary Care Unavailable REBECCA, DR MARINO Braswell Consulting Unavailable JANINE ., DR DORADO Primary Care Unavailable MIRNA MARIE Attending Unavailable ISSA Carter, MIRNA Admitting Unavailable MIRNA MARIE Consulting Unavailable FAWN MARINELLI Consulting Unavaila LEÓN Leung Admitting Unavailable LARISSA PETER Mallory Attending Unavailable HOMilo ., DR DORADO Primary Care Unavailable LARISSA, PETER D Admitting Unavailable PAOLOANDER, PETER D Attending Unavailable HOY ., DR DORADO Primary Care Unavailable LEÓN DIAS Attending Unavailable HOMilo ., DR DORADO Primary Care Unavailable LARISSA PETER Mallory Admitting Unavailable HIGHLANDER, PETER D Attending Unavailable HOY ., DR DORADO Primary Care Unavailable HIGHLANDER, PETER D Admitting Unavailable HIGHLANDER, PETER D Admitting Unavailable HOY ., DR DOARDO Primary Care Unavailable HIGHLANDER, PETER D Attending [...] BETI Consulting Unavailable MADINA ACEVEDO Consulting Unavailable ITKIN, NGUYEN Consulting Unavailable HIGHLANDER, PETER D Admitting Unavailable HIGHLANDER, PETER D Attending Unavailable HOY ., DR DORADO Primary Care Unavailable HOY ., DR DORADO Primary Care Unavailable TAMLYN .JAMES Attending Unavailable TAMLYN .JAMES Admitting Unavailable HOY ., DR DORADO Primary [...] D Attending Unavailable AGUBOSIM, ISABEL Consulting Unavailable PAULETTE, NEYDA Consulting Unavailable AYYAGARI ., SAMINA Consulting Unavailable ISSA ., MIRNA Attending Unavailable SEUN .ALISON Consulting Unavailable JANINE ., DR DORADO Primary [...] Unavailable VILLALOBOS, DR REYMUNDO Braswell Consulting Unavailable HOY ., DR DORADO Attending Unavailable JANINE ., [...] JANINE ., DR DORADO Primary Care Unavailable ACWORTH, DR RISHABH Martin Consulting Unavailable LEÓN DIAS Consulting Unavailable Arthur OLIVER, Ирина Loya Attending Unavailable Arthur OLIVER, Andscar Loya Attending Unavailable Arthur OLIVER, Andscar Loya Attending Unavailable Arthur OLIVER, Ирина Loya Attending Unavailable Ave Mehta MD Primary Care Provider [phone] Beti Ham MD Attending Provider Beti Ham Attending Unavailable Beti Ham Admitting Unavailable Ave Mehta Primary Care Unavailable Jarrod Mahajan Attending Unavailable Jarrod Mahajan Admitting Unavailable Bhupinder, Marino Consulting Unavailable Bhupinder Marino Consulting Unavailable Canovanas, Marino Consulting Unavailable Canovanas, Marino Consulting Unavailable Canovanas, Marino Consulting Unavailable Canovanas, Marino Consulting Unavailable Canovanas, Marino Consulting Unavailable Canovanas, Marino Consulting Unavailable Canovanas, Marino Consulting Unavailable [facility] Consulting Unavailable [facility] [place] Consulting Unavailable Jarrod Mahajan Admitting Unavailable Jarrod Mahajan Attending Unavailable ENOCH FRANKEL Referring Unavailable ENOCH FRANKEL Attending Unavailable ENOCH FRANKEL Referring Unavailable ENOCH FRANKEL Attending Unavailable ENOCH FRANKEL Referring Unavailable ENOCH FRANKEL Referring Unavailable ENOCH FRANKEL Referring Unavailable Allergies Allergy Classification Reported Allergen(s) Allergy Type Date of Onset Reaction(s) Facility (6 sources) Dust; Translations: [Dust] Propensity to adverse reactions (disorder) [facility] Repository (6 sources) Pollen; Translations: [Pollen] Propensity to adverse reactions (disorder) [facility] Repository (1 source) Cephalexin; Translations: [CEPHALEXIN] Drug Allergy 4 [facility] Repository (1 source) house dust allergenic extract; Translations: [HOUSE DUST] Drug Allergy 4 [facility] Repository (1 source) Pollen; Translations: [POLLEN EXTRACTS] Propensity to adverse reactions to drug (disorder) 4 [facility] Repository Medications Current Medications Medication Drug Class(es) [...] States takes injection/infusion every 6 months at [facility], ordered by Dr. Mehta. aspirin 81 [...] Tablet Active 25 MG PO Twice daily November 08, 2021 12:05pm Start: 11-04-2021 End: [...] Start: 10-28-2021 take 2 capsules by m out every twelve hours Gabapentin 300 MG 2 [...] 10 MG PO Daily June 03, 2020 12:00November 04, 2021 11:18am take 1 tablet by brynn th every twenty-four hours amLODIPine Besylate 5 MG 1 tablet Orally Once a day Active irbesartan 300 mg oral tablet (1 source) Angiotensin 2 Receptor Marah Start: 06-03-2020 End: 11-04-2021 take 1 tablet by mouth once daily Irbesartan 300 mg tablet Discontinued 300 MG PO Daily June 03, 2020 12:00November 04, 2021 11:18am ketorolac tromethamine 4 mg/ml [...] as needed for Diarrhea June 03, 2020 12:00November 04, 2021 11:18am oxyCODONE hydrochloride 5 mg [...] EYE-BOTH Four times daily June 03, 2020 12:00November 04, 2021 11:18am Pt Unable To Verify [...] Episodic Other aftercare (1 source) Other 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 supervisor (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; Translations: [OTH TIE CARRIER CURRENT DRUG THERAPY] Onset: 10-18-2022 Episodic Other [...] 2 Episodic Other aftercare (1 source) terminal supervisor (current) use of antibiotics; Translations: [RESIDENTIAL CURRENT USE ANTIBIOTICS] Onset: 2 Episodic Other aftercare (1 source) custodial (current) use of aspirin; Translations: [TIE CARRIER CURRENT USE OF ASPIRIN] Onset: 2 Episodic Other aftercare (1 source) terminal supervisor (current) use of insulin; Translations: [RESIDENTIAL CURRENT USE OF INSULIN] Onset: 2 Episodic [...] Test Name Value Interpretation Reference Range Facility Strep pneumo Ag, Uron 2024 Body Fld Cult Not indicated. Invalid Interpretation Code [facility] Comment on above: Performed By: #### 4 [id number] #### [facility] [address] [place] [address] Note Bact Ag Cult Comment Invalid Interpretation Code [facility] Comment on above: Result Comment: Manjinder ege of [employer] standards require a culture to be performed on CSF specimens submitted for bacterial antigen testing. (CAP [id number]) Urine specimens will not be cultured. Performed at: [address] [id number] MD Dayron Pepper Performed By: #### 4 [id number] #### [facility] [address] [place] [address] Org ID S pneumo Not indicated. Invalid Interpretation Code [facility] Comment on above: Performed By: #### 4 [id number] #### [facility] [address] [id number] Spec Source S pneumo Urine Invalid Interpretation Code [facility] Comment on above: Performed By: #### 4 [id number] #### [facility] [address] [place] [address] Strep pneumo Ag Negative Invalid Interpretation Code Negative [facility] Comment on above: Performed By: #### 4 [id number] #### [facility] [address] [place] [address] U Legi Agon 01-16-2025 U Legion Ag Negative Invalid Interpretation Code Negative [facility] Comment on above: Result Comment: Pres umptive negative for L. pneumophila serogroup 1 antigen in urine, suggesting no recent or current infection. Legionnaires' disease cannot be ruled out since other serogroups and species may also cause disease. [facility] [id number] MD Dayron Pepper Performed By: #### 2 [id number] #### [facility] [address] [place] [address] BMPon 01-15-2025 Anion gap [Moles/Vol] 13 mmol/L Normal 6-16 [facility] Comment on above: Performed By: #### 2 [id number] #### [facility] [address] [place] [address] BUN/Creat Ratio 15 No Units Normal 10-20 [facility] Comment on above: Performed By: #### 2 [id number] #### [facility] [address] [place] [address] Calcium [Mass/Vol] 8.9 mg/dL Normal 8.9-11.1 [facility] Comment on above: Performed By: #### 2 [id number] #### [facility] [address] [place] [address] Chloride [Moles/Vol] 102 mmol/L Normal 101-111 [facility] Comment on above: Performed By: #### 2 [id number] #### [facility] [address] [place] [address] CO2 [Moles/Vol] 29 mmol/L Normal 21-31 [facility] Comment on above: Performed By: #### 2 [id number] #### [facility] [address] [place] [address] Creatinine [Mass/Vol] 1.5 mg/dL High 0.5-1.3 [facility] Comment on above: Performed By: #### 2 [id number] #### [facility] [address] [place] [address] Glucose [Mass/Vol] 94 mg/dL Normal 55-199 [facility] Comment on above: Performed By: #### 2 [id number] #### [facility] [address] [place] [address] Potassium [Moles/Vol] 3.7 mmol/L Normal 3.5-5.3 [facility] Comment on above: Performed By: #### 2 [id number] #### [facility] [address] [place] [address] Sodium [Moles/Vol] 140 mmol/L Normal 135-145 [facility] Comment on above: Performed By: #### 2 [id number] #### [facility] [address] [place] [address] Urea nitrogen [Mass/Vol] 23 mg/dL High 5-21 [facility] Comment on above: Performed By: #### 2 [id number] #### [facility] [address] [place] [address] CBC w/ Auto Diffon 5 Basophil Absolute 0.1 E9/L Normal 0.0-0.2 [facility] Comment on above: Performed By: #### 2 [id number] #### [facility] [address] [place] [address] Basophils/100 WBC (Bld) 0.7 % Normal 0.0-2.0 [facility] Comment on above: Performed By: #### 2 [id number] #### [facility] [address] [place] [address] Eos Absolute 0.9 E9/L High 0.0-0.5 [facility] Comment on above: Performed By: #### 2 [id number] #### [facility] [address] [place] [address] Eosinophils/100 WBC (Bld) 7.0 % Normal 0.0-8.0 [facility] Comment on above: Performed By: #### 2 [id number] #### [facility] [address] [place] [address] Erythrocyte distribution width (RBC) [Ratio] 14.1 % Normal 10.9-14.2 [facility] Comment on above: Performed By: #### 2 [id number] #### [facility] [address] [place] [address] Hematocrit (Bld) [Volume fraction] 34.4 % Normal 34.0-46.0 [facility] Comment on above: Performed By: #### 2 [id number] #### [facility] [address] [place] [address] Hemoglobin (Bld) [Mass/Vol] 11.7 g/dL Low 12.0-16.0 [facility] Comment on above: Performed By: #### 2 [id number] #### [facility] [address] [place] [address] Lymph Absolute 0.9 E9/L Low 1.0-4.0 [facility] Comment on above: Performed By: #### 2 [id number] #### [facility] [address] [place] [address] Lymphocytes/100 WBC (Bld) 7.1 % Low 14.0-50.0 [facility] Comment on above: Performed By: #### 2 [id number] #### [facility] [address] [place] [address] MCH (RBC) [Entitic mass] 34.1 pg High 27.0-34.0 [facility] Comment on above: Performed By: #### 2 [id number] #### [facility] [address] [place] [address] MCHC (RBC) [Mass/Vol] 33.8 g/dL Normal 31.4-36.0 [facility] Comment on above: Performed By: #### 2 [id number] #### [facility] [address] [place] [address] MCV (RBC) [Entitic vol] 100.7 fL High 80.0-100.0 [facility] Comment on above: Performed By: #### 2 [id number] #### [facility] [address] [place] [address] Davis Absolute 1.0 E9/L Normal 0.2-1.0 [facility] Comment on above: Performed By: #### 2 [id number] #### [facility] [address] [place] [address] Monocytes/100 WBC (Bld) 8.5 % Normal 4.0-14.0 [facility] Comment on above: Performed By: #### 2 [id number] #### [facility] [address] [place] [address] Neutro Absolute 9.4 E9/L High 2.0-7.5 [facility] Comment on above: Performed By: #### 2 [id number] #### [facility] [address] [place] [address] Neutro Auto 76.7 % High 36.0-75.0 [facility] Comment on above: Performed By: #### 2 [id number] #### [facility] [address] [place] [address] Platelet 195.0 E9/L Normal 150.0-500.0 [facility] Comment on above: Performed By: #### 2 [id number] #### [facility] [address] [place] [address] Platelet mean volume (Bld) [Entitic vol] 7.8 fL Normal 6.4-10.8 [facility] Comment on above: Performed By: #### 2 [id number] #### [facility] [address] [id number] RBC 3.4 E12/L Low 4.3-5.9 [facility] Comment on above: Performed By: #### 2 [id number] #### [facility] [address] [place] [address] WBC 12.2 E9/L High 4.0-11.0 [facility] Comment on above: Performed By: #### 2 [id number] #### [facility] [address] [place] [address] Inpatient Clinical Summaryon 01-15-2025 Inpatient Clinical Summary Inpatient Clinical Summary [address] [address] Clinical Summary Person Information: Name: LINDA NASCIMENTO Age: 74 Years : 1950 Sex: Female PCP: Ave Mehta MD Marital Status: Race: White Ethnicity: Non- or Language: Botswanan Visit Id: Visit Reason: Potential stroke; Syncope/Near syncope; Weakness or fatigue; POSS STROKE Speciality: Acuity: Enc Type: Inpatient Med Service: Medical Arrival: 01/13/2025 13:01:29 Discharge: Dispo Type: Admitted as IP to this [facility] Address: [address] [place] [id number] Provider Notes: Diagnosis: 1:Sepsis; 2:Pneumonia; 3:Acute hypoxic respiratory failure; 4:Chronic heart failure with preserved ejection fraction (HFpEF); 5:Stroke-like symptoms; 6:Aphasia; 7:CKD stage 3b, GFR 30-44 ml/min; 8:Bipolar affective; 9:Morbid obesity with BMI of 40.0-44.9, adult; 10:History of atrial fibrillation; 11:Pacemaker; 12:Chronic GERD Problems Active Chronic heart failure with preserved ejection fraction (HFpEF) Morbid obesity with BMI of 40.0-44.9, adult Extreme obesity Depression Bradycardia Sarcoidosis Branch retinal artery occlusion Bipolar affective Hyperlipemia Hyponatremia HTN (hypertension) Smoking Status: Never Smoker Functional Status: Sensory Deficits: History of Falls: Within last three months Mobility Assistance Prior to Admission: Partial assistance ADLs: Moderate assistance Current Level of Assistance for Self-Care/Mobility: Cognitive Status: Oriented x 3 Allergies Dust Pollen Measurements: Height: 165 cm Weight: 118.9 kg Blood Pressure: 130 mmHg / 81 mmHg BMI: 44.08 kg/m2 Procedures No Procedures Performed or Documented Immunizations No Immunizations Documented This Visit Final Med List: acetaminophen-hydroc odone (acetaminophen-hydro codone 325 mg-7.5 mg oral tablet) 1 Tablets By Mouth every 8 hours. amiodarone (amiodarone 200 mg Tab) 2 Tablets By Mouth 2 times a day. amoxicillin-clavulan ate (Augmentin 875 mg-125 mg Tab) 875 Milligram By Mouth 2 times a day for 10 Days. apixaban (Eliquis 5 mg oral tablet) 1 Tablets By Mouth 2 times a day. baclofen (baclofen 10 mg Tab) 1 Tablets By Mouth every day. baclofen (baclofen 20 mg Tab) 1 Tablets By Mouth every day. benzonatate (Tessalon 100 mg Cap) 2 Capsules By Mouth 3 times a day. carvedilol (carvedilol 25 mg Tab) 1 Tablets By Mouth 2 times a day. clonazepam (ClonazePAM 0.5 mg Tab) 1 Tablets By Mouth 3 times a day. dapagliflozin (Farxiga 10 mg oral tablet) 1 Tablets By Mouth every day. donepezil (Aricept 10 mg Tab) 1 Tablets By Mouth once a day (at bedtime). doxycycline (doxycycline hyclate 100 mg Cap) 1 Capsules By Mouth 2 times a day. escitalopram (Lexapro 10 mg Tab) 1 Tablets By Mouth every day. fentanyl (fentaNYL 50 mcg/hr Transderm ER Film) 1 Patches Topical every 72 hours. ferrous fumarate (ferrous fumarate 325 mg oral tablet) 1 Tablets By Mouth every day. furosemide (furosemide 20 mg Tab) 3 Tablets By Mouth every day. ipratropium Inhalation 4 times a day. lamotrigine (lamotrigine 150 mg Tab) 1 Tablets By Mouth every day. losartan (losartan 25 mg Tab) 1 Tablets By Mouth every day. olanzapine (olanzapine 15 mg oral tablet) 1 Tablets By Mouth once a day (at bedtime). pantoprazole (Pantoprazole [address] Tab) 1 Tablets By Mouth every day. potassium chloride (potassium chloride 10 mEq Cap-ER) 1 Capsules By Mouth 2 times a day. predniSONE 20 Milligram By Mouth every day. spironolactone 12.5 By Mouth every day. tamsulosin (tamsulosin 0.4 mg Cap) 1 Capsules By Mouth at bedtime. venlafaxine (venlafaxine 150 mg Cap-ER) 1 Capsules By Mouth every day. Care Team Members: Attending Physician: Jarrod Mahajan III, DO Consulting Physician: [facility] [place]; Marino Roe MD Referring Physician: Follow up: With: Address: When: neurology Within 2 to 4 weeks Comments: call [phone] to scheduled an appt Patient Education Information: Diandra [facility] Inpatient Patient Summaryon 01-15-2025 Inpatient Patient Summary Inpatient Patient Summary LINDA NASCIMENTO Lisa :1950 Visit Date:01/13/2025 Inpatient Discharge Instructions Your Care Team Admitting Physician - Jarrod Mahajan III, DO Consulting Physician - Marino Roe MD [facility] XXXX Reason for Your Visit pna Your Diagnosis Sepsis Pneumonia Acute hypoxic respiratory failure Chronic heart failure with preserved ejection fraction (HFpEF) Stroke-like symptoms Aphasia CKD stage 3b, GFR 30-44 ml/min Bipolar affective Morbid obesity with BMI of 40.0-44.9, adult History of atrial fibrillation Pacemaker Chronic GERD Potential stroke Syncope/Near syncope Weakness or fatigue Tests Performed Legionella Antigen Urine -- Results Pending -- Sputum Culture -- Results Pending -- Streptococcus pneumoniae Ag, Urine -- Results Pending -- CT Head or Brain w/o Contrast Echo Transthoracic w/ Contrast MRA Head w/o Contrast MRA Neck w/o Contrast MRI Brain w/o Contrast XR Chest Single View Please visit your patient portal for your results or contact your primary care physician. This Is Your Medications List acetaminophen-hydroc odone (acetaminophen-hydro codone 325 mg-7.5 mg oral tablet) amiodarone (amiodarone 200 mg Tab) amoxicillin-clavulan ate (Augmentin 875 mg-125 mg Tab) apixaban (Eliquis 5 mg oral tablet) baclofen (baclofen 10 mg Tab) baclofen (baclofen 20 mg Tab) benzonatate (Tessalon 100 mg Cap) carvedilol (carvedilol 25 mg Tab) clonazepam (ClonazePAM 0.5 mg Tab) collagenase topical (collagenase topical 250 units/g ointment) dapagliflozin (Farxiga 10 mg oral tablet) donepezil (Aricept 10 mg Tab) escitalopram (Lexapro 10 mg Tab) fentanyl (fentaNYL 50 mcg/hr Transderm ER Film) ferrous fumarate (ferrous fumarate 325 mg oral tablet) furosemide (furosemide 20 mg Tab) ipratropium lamotrigine (lamotrigine 150 mg Tab) losartan (losartan 25 mg Tab) olanzapine (olanzapine 15 mg oral tablet) pantoprazole (Pantoprazole [address] Tab) potassium chloride (potassium chloride 10 mEq Cap-ER) predniSONE spironolactone tamsulosin (tamsulosin 0.4 mg Cap) venlafaxine (venlafaxine 150 mg Cap-ER) [Image Removed: STOP]Stop taking these medications doxycycline (doxycycline hyclate 100 mg Cap) tizanidine (tiZANidine 4 mg Tab) Discharge Vitals Temperature (Oral) 36.8 ???C Heart Rate (Monitored) 69 Respiratory Rate 18 Blood Pressure 130/81 Weight 118.9 kg What to do next Instructions From Your Doctor Event Name Event Result Discharge Activity Ambulate as tolerated Discharge Diet(s) Regular Pending Diagnostic Test Results None Discharge Instructions Return to ER if symptoms return or worsen New Follow Up Appointments after Discharge Follow Up with neurology When: Within 2 to 4 weeks Comments: call [phone] to scheduled an appt Where: The Following Services Have Been Arranged for You Prof Skilled Services, Arranged - Occupational Therapy, Physical Therapy, Nursing Medications What How Much When Why Instructions Next Dose New collagenase topical (collagenase topical 250 units/ g ointment) 1 Application Topical Every day 01/15 Changed amoxicillin-clavulan ate (Augmentin 875 mg-125 mg Tab) 1 Tablets By Mouth 2 times a day Pneumonia Duration: 5 Days Printed Prescription 01/15 Unchanged acetaminophen-hydroc odone (acetaminophen-hydro codone 325 mg-7.5 mg oral tablet) 1 Tablets By Mouth Every 8 hours Unchanged amiodarone (amiodarone 200 mg Tab) 2 Tablets By Mouth 2 times a day 01/15 Unchanged apixaban (Eliquis 5 mg oral tablet) 1 Tablets By Mouth 2 times a day 01/15 Unchanged baclofen (baclofen 10 mg Tab) 1 Tablets By Mouth Every day 01/16 Unchanged baclofen (baclofen 20 mg Tab) 1 Tablets By Mouth Every day 01/16 Unchanged benzonatate (Tessalon 100 mg Cap) 2 Capsules By Mouth 3 times a day 01/15 Unchanged carvedilol (carvedilol 25 mg Tab) 1 Tablets By Mouth 2 times a day 01/15 Unchanged clonazepam (ClonazePAM 0.5 mg Tab) 1 Tablets By Mouth 3 times a day as needed Unchanged dapagliflozin (Farxiga 10 mg oral tablet) 1 Tablets By Mouth Every day 01/16 Unchanged donepezil (Aricept 10 mg Tab) 1 Tablets By Mouth Once a day (at bedtime) 01/16 Unchanged escitalopram (Lexapro 10 mg Tab) 1 Tablets By Mouth Every day 01/16 Unchanged fentanyl (fentaNYL 50 mcg/ hr Transderm ER Film) 1 Patches Topical Every 72 hours placed 01/14 Unchanged ferrous fumarate (ferrous fumarate 325 mg oral tablet) 1 Tablets By Mouth Every day 01/16 Unchanged furosemide (furosemide 20 mg Tab) 3 Tablets By Mouth Every day 01/16 Unchanged ipratropium Inhalation 4 times a day Unchanged lamotrigine (lamotrigine 150 mg Tab) 1 Tablets By Mouth Every day 01/16 Unchanged losartan (losartan 25 mg Tab) 1 Tablets By Mouth Every day 01/16 Unchanged olanzapine (olanzapine 15 mg oral tablet) (more content not included)... Normal [facility] Inpatient Patient Summary Inpatient Patient Summary [place] [id number] Patient Discharge Instructions PERSON INFORMATION Name: LINDA NASCIMENTO Date of : 1950 Current Date: 01/15/2025 09:45:48 [facility] Admitting Physician: Jarrod Mahajan III, DO Primary Care Physician: Ave Mehta MD PCP Comment: Discharge Diagnosis: 1:Sepsis; 2:Pneumonia; 3:Acute hypoxic respiratory failure; 4:Chronic heart failure with preserved ejection fraction (HFpEF); 5:Stroke-like symptoms; 6:Aphasia; 7:CKD stage 3b, GFR 30-44 ml/min; 8:Bipolar affective; 9:Morbid obesity with BMI of 40.0-44.9, adult; 10:History of atrial fibrillation; 11:Pacemaker; 12:Chronic GERD Condition at Discharge: KESHA NASCIMENTOA Lisa has been given the following list of follow-up instructions, prescriptions, and patient education materials: PATIENT FOLLOW-UP INFORMATION Diet: Discharge Activity: Discharge Restrictions: Wound Care Instructions: Remove Your Dressing In Days Call Your Doctor For: IF UNABLE TO CONTACT YOUR PHYSICIAN AND YOU FEEL IT IS AN EMERGENCY, GO TO THE NEAREST EMERGENCY ROOM OR CALL 911 Home Treatment: Devices/Equipment: Oxygen, Walker Special Services: Additional Instructions: Primary Care Physician to provide the following pending test results: Follow up: With: Address: When: neurology Within 2 to 4 weeks Comments: call [phone] to scheduled an appt In the event that this physician does not participate in your insurance network, please consult with your insurance company to find a nearby participating provider. Comment: AGGIE Cordoba LINDA L, have received the attached patient education materials/instructio ns and have verbalized understanding: Patient Signature Date Clinican/Nurse Signature Date HERE ARE THE MEDICATION CHANGES THAT OCCURRED DURING YOUR HOSPITAL STAY Medications to Continue with No Changes Other Medications acetaminophen-hydroc odone (acetaminophen-hydro codone 325 mg-7.5 mg oral tablet) 1 Tablets By Mouth every 8 hours. Last Dose: Next Dose: amiodarone (amiodarone 200 mg Tab) 2 Tablets By Mouth 2 times a day. Last Dose: Next Dose: amoxicillin-clavulan ate (Augmentin 875 mg-125 mg Tab) 875 Milligram By Mouth 2 times a day for 10 Days. Last Dose: Next Dose: apixaban (Eliquis 5 mg oral tablet) 1 Tablets By Mouth 2 times a day. Last Dose: Next Dose: baclofen (baclofen 10 mg Tab) 1 Tablets By Mouth every day. Last Dose: Next Dose: baclofen (baclofen 20 mg Tab) 1 Tablets By Mouth every day. Last Dose: Next Dose: benzonatate (Tessalon 100 mg Cap) 2 Capsules By Mouth 3 times a day. Last Dose: Next Dose: carvedilol (carvedilol 25 mg Tab) 1 Tablets By Mouth 2 times a day. Last Dose: Next Dose: clonazepam (ClonazePAM 0.5 mg Tab) 1 Tablets By Mouth 3 times a day. Last Dose: Next Dose: dapagliflozin (Farxiga 10 mg oral tablet) 1 Tablets By Mouth every day. Last Dose: Next Dose: donepezil (Aricept 10 mg Tab) 1 Tablets By Mouth once a day (at bedtime). Last Dose: Next Dose: doxycycline (doxycycline hyclate 100 mg Cap) 1 Capsules By Mouth 2 times a day. Last Dose: Next Dose: escitalopram (Lexapro 10 mg Tab) 1 Tablets By Mouth every day. Last Dose: Next Dose: fentanyl (fentaNYL 50 mcg/hr Transderm ER Film) 1 Patches Topical every 72 hours. Last Dose: Next Dose: ferrous fumarate (ferrous fumarate 325 mg oral tablet) 1 Tablets By Mouth every day. Last Dose: Next Dose: furosemide (furosemide 20 mg Tab) 3 Tablets By Mouth every day. Last Dose: Next Dose: ipratropium Inhalation 4 times a day. Last Dose: Next Dose: lamotrigine (lamotrigine 150 mg Tab) 1 Tablets By Mouth every day. Last Dose: Next Dose: losartan (losartan 25 mg Tab) 1 Tablets By Mouth every day. Last Dose: Next Dose: olanzapine (olanzapine 15 mg oral tablet) 1 Tablets By Mouth once a day (at bedtime). Last Dose: Next Dose: pantoprazole (Pantoprazole [address] Tab) 1 Tablets By Mouth every day. Last (more content not included)... [facility] Interdisciplinary Note - Antony e Manageron 01-15-2025 Interdisciplinary Note - Bindery Helper Interdisciplinary Note - Bindery Helper Plan remains for patient to return to her LTC facility at [facility] when medically stable. Updates provided to facility. Copy of IMM at bedside. CM to follow. [facility] Comment on above: Result Comment: Elec tronically Signed By: Kim Gamboa\Date and Time Signed: 01/15/25 09:14 EDT MRSA Screenon 01-15-2025 MRSA DNA DONNIE+probe Ql (Unsp spec) Microbiology PROCEDURE: MRSA Screen [R1] SOURCE: Nasal BODY SITE: COLLECTED DATE/TIME: 01/13/2025 16:36 EDT RECEIVED DATE/TIME: 01/13/2025 16:59 EDT START DATE/TIME: 01/13/2025 16:59 EDT FREE TEXT SOURCE: Keyshawn ROYAL DO, Jarrod Mahajan III, DO, Jarrod Maravilla FINAL REPORTS Final Report [] Verified Date/Time: 01/15/2025 06:53 EDT MRSA Negative. Performing Locations R1: This test was performed at: [facility], [address] [place] [address], [id number] , , [facility] Comment on above: Performed By: #### 1 [id number] #### [facility] [address] [place] [address] eGFRon 01-15-2025 eGFR 36 mL/min/1.73 m2 Low >=59 [facility] Comment on above: Performed By: #### 1 [id number] #### [facility] [address] [place] [address] CBC w/ Auto Diffon 5 Basophil Absolute 0.1 E9/L Normal 0.0-0.2 [facility] Comment on above: Performed By: #### 2 [id number] #### [facility] [address] [place] [address]19 Basophils/100 WBC (Bld) 0.5 % Normal 0.0-2.0 [facility] Comment on above: Performed By: #### 2 [id number] #### [facility] [address] [place] [address] Eos Absolute 0.5 E9/L Normal 0.0-0.5 [facility] Comment on above: Performed By: #### 2 [id number] #### [facility] [address] [place] [address] Eosinophils/100 WBC (Bld) 3.9 % Normal 0.0-8.0 [facility] Comment on above: Performed By: #### 2 [id number] #### [facility] [address] [place] [address] Erythrocyte distribution width (RBC) [Ratio] 14.2 % Normal 10.9-14.2 [facility] Comment on above: Performed By: #### 2 [id number] #### [facility] [address] [place] [address] Hematocrit (Bld) [Volume fraction] 32.5 % Low 34.0-46.0 [facility] Comment on above: Performed By: #### 2 [id number] #### [facility] [address] [place] [address] Hemoglobin (Bld) [Mass/Vol] 11.1 g/dL Low 12.0-16.0 [facility] Comment on above: Performed By: #### 2 [id number] #### [facility] [address] [place] [address] Lymph Absolute 1.3 E9/L Normal 1.0-4.0 [facility] Comment on above: Performed By: #### 2 [id number] #### [facility] [address] [place] [address] Lymphocytes/100 WBC (Bld) 10.4 % Low 14.0-50.0 [facility] Comment on above: Performed By: #### 2 [id number] #### [facility] [address] [place] [address] MCH (RBC) [Entitic mass] 34.7 pg High 27.0-34.0 [facility] Comment on above: Performed By: #### 2 [id number] #### [facility] [address] [place] [address] MCHC (RBC) [Mass/Vol] 34.2 g/dL Normal 31.4-36.0 [facility] Comment on above: Performed By: #### 2 [id number] #### [facility] [address] [place] [address] MCV (RBC) [Entitic vol] 101.5 fL High 80.0-100.0 [facility] Comment on above: Performed By: #### 2 [id number] #### [facility] [address] [place] [address] Davis Absolute 1.1 E9/L High 0.2-1.0 [facility] Comment on above: Performed By: #### 2 [id number] #### [facility] [address] [place] [address] Monocytes/100 WBC (Bld) 9.0 % Normal 4.0-14.0 [facility] Comment on above: Performed By: #### 2 [id number] #### [facility] [address] [place] [address] Neutro Absolute 9.2 E9/L High 2.0-7.5 [facility] Comment on above: Performed By: #### 2 [id number] #### [facility] [address] [place] [address] Neutro Auto 76.2 % High 36.0-75.0 [facility] Comment on above: Performed By: #### 2 [id number] #### [facility] [address] [place] [address] Platelet 189.0 E9/L Normal 150.0-500.0 [facility] Comment on above: Performed By: #### 2 [id number] #### [facility] [address] [place] [address] Platelet mean volume (Bld) [Entitic vol] 7.4 fL Normal 6.4-10.8 [facility] Comment on above: Performed By: #### 2 [id number] #### [facility] [address] [place] [address] RBC 3.2 E12/L Low 4.3-5.9 [facility] Comment on above: Performed By: #### 2 [id number] #### [facility] [address] [place] [address] WBC 12.1 E9/L High 4.0-11.0 [facility] Comment on above: Performed By: #### 2 [id number] #### [facility] [address] [place] [address] CMPon 01-14-2025 Albumin [Mass/Vol] 3.5 g/dL Normal 3.3-5.0 [facility] Comment on above: Performed By: #### 2 [id number] #### [facility] [address] [place] [address] Albumin/Globulin [Mass ratio] 1.3 {ratio} Normal 1.1-2.2 [facility] Comment on above: Performed By: #### 2 [id number] #### [facility] [address] [place] [address] Alk Phos 66 Int._Unit/L Normal 21-98 [facility] Comment on above: Performed By: #### 2 [id number] #### [facility] [address] [place] [address] ALT 7 Int._Unit/L Normal 6-46 [facility] Comment on above: Performed By: #### 2 [id number] #### [facility] [address] [place] [address] Anion gap [Moles/Vol] 10 mmol/L Normal 6-16 [facility] Comment on above: Performed By: #### 2 [id number] #### [facility] [address] [place] [address] AST 13 Int._Unit/L Normal 5-43 [facility] Comment on above: Performed By: #### 2 [id number] #### [facility] [address] [place] [address] Bili Total 0.6 mg/dL Normal 0.0-1.1 [facility] Comment on above: Performed By: #### 2 [id number] #### [facility] [address] [place] [address] BUN/Creat Ratio 17 No Units Normal 10-20 [facility] Comment on above: Performed By: #### 2 [id number] #### [facility] [address] [place] [address] Calcium [Mass/Vol] 8.6 mg/dL Low 8.9-11.1 [facility] Comment on above: Performed By: #### 2 187474 #### [facility] [address] [place] [address] Chloride [Moles/Vol] 103 mmol/L Normal 101-111 [facility] Comment on above: Performed By: #### 2 [id number] #### [facility] [address] [place] [address] CO2 [Moles/Vol] 33 mmol/L High 21-31 [facility] Comment on above: Performed By: #### 2 [id number] #### [facility] [address] [place] [address] Creatinine [Mass/Vol] 1.5 mg/dL High 0.5-1.3 [facility] Comment on above: Performed By: #### 2 983663 #### [facility] [address] [place] [address] Globulin (S) [Mass/Vol] 2.6 g/dL Normal 1.4-4.0 [facility] Comment on above: Performed By: #### 2 659986 #### [facility] [address] [place] [address] Glucose [Mass/Vol] 90 mg/dL Normal 55-199 [facility] Comment on above: Performed By: #### 2 503236 #### [facility] [address] [place] [address] Potassium [Moles/Vol] 3.7 mmol/L Normal 3.5-5.3 [facility] Comment on above: Performed By: #### 2 713066 #### [facility] [address] [place] [address] Protein [Mass/Vol] 6.1 g/dL Normal 6.0-7.8 [facility] Comment on above: Performed By: #### 2 [id number] #### [facility] [address] [place] [address] Sodium [Moles/Vol] 142 mmol/L Normal 135-145 [facility] Comment on above: Performed By: #### 2 335155 #### [facility] [address] [place] [address] Urea nitrogen [Mass/Vol] 25 mg/dL High 5-21 [facility] Comment on above: Performed By: #### 2 360657 #### [facility] [address] [place] [address] [id number] 01-14-2025 HbA1c (Bld) [Mass fraction] 5.6 % Normal <=5.9 [facility] Comment on above: Performed By: #### 7 [id number] #### [facility] [address] [place] [address] MRA Head w/o Contraston 0 MRA Head w/o Contrast Exam Date/Time: 01/14/2025 16:51 EDT Reason for Exam: TIA Report Please see MRI brain report. Ordering Provider: Jarrod Mahajan FINAL REPORT Dictated: 01/14/2025 5:19 pm Dwight Coffey DO Signed (Electronic Signature): 01/14/2025 5:19 pm Signed by: Dwight Coffey DO Transcribed by: BEATRIZ Technologist: LULY Normal [facility] MRA Neck w/o Contraston MRA Neck w/o Contrast Exam Date/Time: 01/14/2025 16:51 EDT Reason for Exam: TIA Report IMPRESSION: NO DISSECTION, HIGH GRADE STENOSIS OR ANEURYSM. EXAM: MR angiogram of the neck without contrast HISTORY: TIA TECHNIQUE: Axial 2-D and 3-D [id number] images of the vasculature of the neck was obtained without contrast. 3-D volume rendered images were obtained. COMPARISON: None available FINDINGS: The visualized bilateral common carotid arteries are of normal course and caliber. The bilateral internal and external carotid arteries are of normal course and caliber. Medial/retropharynge al course of the bilateral common carotid arteries. Vertebral arteries demonstrate normal caliber. No dissection, high grade stenosis or aneurysm. Technical Comments: Ordering Provider: Jarrod Mahajan FINAL REPORT Dictated: 01/14/2025 5:21 pm Dwight Coffey DO Signed (Electronic Signature): 01/14/2025 5:21 pm Signed by: Dwight Coffey DO Transcribed by: BEATRIZ Technologist: LULY [facility] MRI Brain w/o Contraston MRI Brain w/o Contrast Exam Date/Time: 01/14/2025 16:51 EDT Reason for Exam: TIA Report IMPRESSION: MRI brain: NO ACUTE CRANIAL PROCESS. GENERALIZED PARENCHYMAL VOLUME LOSS AND NONSPECIFIC WHITE MATTER FINDINGS MOST COMPATIBLE WITH CHRONIC SMALL VESSEL ISCHEMIC CHANGES IN A PATIENT OF THIS AGE. MRA brain: NO ANEURYSM OR HIGH-GRADE STENOSIS. EXAM: MRI of the brain without contrast MRA of the brain without contrast History: Patient unresponsive. TIA. Technique: Multiplanar multisequence MRI of the brain was performed without contrast. Axial 3-D [id number] images of the brain were obtained without contrast. 3-D volume rendered images were performed for evaluation of the cerebral vasculature. Comparison: CT brain 01/13/2025 Findings: MRI brain: Areas of hyperintense T2/FLAIR signal within the bilateral supratentorial white matter are nonspecific but are most likely due to chronic small vessel ischemic changes in a patient of this age. Prominence of the sulci and ventricles compatible with mild generalized parenchymal volume loss. No acute hemorrhage, mass, mass effect, midline shift, or abnormal extra-axial fluid collection. Midline structures are within normal limits. The posterior fossa is within normal limits. There is no diffusion restriction. No susceptibility artifact is identified on the gradient echo sequence. Report The major intracranial vascular flow voids are maintained. Cranial nerves 7/8 complexes appear grossly unremarkable. The visualized paranasal sinuses and bilateral mastoid air cells are clear. MRA brain: The bilateral distal cervical internal carotid arteries through the skull base are patent. The bilateral middle cerebral arteries through the trifurcation and opercular branches are patent. The vertebrobasilar system including the superior cerebellar and posterior cerebral arteries are patent. origin of the right posterior cerebral artery. The left posterior cerebral artery is not definitively identified. The bilateral anterior cerebral arteries and anterior communicating artery are patent. No aneurysm or high-grade stenosis of the visualized cerebral vasculature. Technical Comments: Ordering Provider: Jarrod Mahajan FINAL REPORT Dictated: 01/14/2025 5:19 pm Dwight Coffey DO Signed (Electronic Signature): 01/14/2025 5:19 pm Signed by: Dwgiht Coffey DO Transcribed by: BEATRIZ Technologist: LULY Normal [facility] eGFRon 01-14-2025 eGFR 36 mL/min/1.73 m2 Low >=59 [facility] Comment on above: Performed By: #### 1 [id number] #### [facility] [address] [place] [address] BB Draw & Holdon 01-13-2025 BB D&H Sample drawn for Blood Ba Normal [facility] Comment on above: Performed By: #### 1 [id number] #### [facility] [address] [place] [address] BMPon 01-13-2025 Anion gap [Moles/Vol] 15 mmol/L Normal 6-16 [facility] Comment on above: Performed By: #### 2 [id number] #### [facility] [address] [place] [address] BUN/Creat Ratio 16 No Units Normal 10-20 [facility] Comment on above: Performed By: #### 2 [id number] #### [facility] [address] [place] [address] Calcium [Mass/Vol] 9.9 mg/dL Normal 8.9-11.1 [facility] Comment on above: Performed By: #### 2 [id number] #### [facility] [address] [place] [address] Chloride [Moles/Vol] 99 mmol/L Low 101-111 [facility] Comment on above: Performed By: #### 2 [id number] #### [facility] [address] [place] [address] CO2 [Moles/Vol] 29 mmol/L Normal 21-31 [facility] Comment on above: Performed By: #### 2 [id number] #### [facility] [address] [place] [address] Creatinine [Mass/Vol] 1.6 mg/dL High 0.5-1.3 [facility] Comment on above: Performed By: #### 2 [id number] #### [facility] [address] [place] [address] Glucose [Mass/Vol] 172 mg/dL Normal 55-199 [facility] Comment on above: Performed By: #### 2 186013 #### [facility] [address] [place] [address] Potassium [Moles/Vol] 3.8 mmol/L Normal 3.5-5.3 [facility] Comment on above: Performed By: #### 2 [id number] #### [facility] [address] [place] [address] Sodium [Moles/Vol] 139 mmol/L Normal 135-145 [facility] Comment on above: Performed By: #### 2 [id number] #### [facility] [address] [place] [address] Urea nitrogen [Mass/Vol] 26 mg/dL High 5-21 [facility] Comment on above: Performed By: #### 2 570394 #### [facility] [address] [place] [address] BNPon 01-13-2025 Int Ctr BNP Pass Normal [facility] Comment on above: Performed By: #### 1 [id number] #### [facility] [address] [place] [address] Natriuretic peptide B (Bld) [Mass/Vol] 370 pg/mL High 5-80 [facility] Comment on above: Performed By: #### 1 [id number] #### [facility] [address] [place] [address] CBC w/ Auto Diffon 5 Basophil Absolute 0.1 E9/L Normal 0.0-0.2 [facility] Comment on above: Performed By: #### 2 [id number] #### [facility] [address] [place] [address] Basophils/100 WBC (Bld) 0.5 % Normal 0.0-2.0 [facility] Comment on above: Performed By: #### 2 [id number] #### [facility] [address] [place] [address] Eos Absolute 0.1 E9/L Normal 0.0-0.5 [facility] Comment on above: Performed By: #### 2 [id number] #### [facility] [address] [place] [address] Eosinophils/100 WBC (Bld) 0.4 % Normal 0.0-8.0 [facility] Comment on above: Performed By: #### 2 758274 #### [facility] [address] [place] [address] Erythrocyte distribution width (RBC) [Ratio] 14.3 % High 10.9-14.2 [facility] Comment on above: Performed By: #### 2 [id number] #### [facility] [address] [place] [address] Hematocrit (Bld) [Volume fraction] 38.6 % Normal 34.0-46.0 [facility] Comment on above: Performed By: #### 2 [id number] #### [facility] [address] [place] [address] Hemoglobin (Bld) [Mass/Vol] 13.4 g/dL Normal 12.0-16.0 [facility] Comment on above: Performed By: #### 2 117543 #### [facility] [address] [place] [address] Lymph Absolute 0.7 E9/L Low 1.0-4.0 [facility] Comment on above: Performed By: #### 2 327047 #### [facility] [address] [place] [address] Lymphocytes/100 WBC (Bld) 5.2 % Low 14.0-50.0 [facility] Comment on above: Performed By: #### 2 [id number] #### [facility] [address] [place] [address] MCH (RBC) [Entitic mass] 34.9 pg High 27.0-34.0 [facility] Comment on above: Performed By: #### 2 [id number] #### [facility] [address] [place] [address] MCHC (RBC) [Mass/Vol] 34.6 g/dL Normal 31.4-36.0 [facility] Comment on above: Performed By: #### 2 [id number] #### [facility] [address] [place] [address] MCV (RBC) [Entitic vol] 100.7 fL High 80.0-100.0 [facility] Comment on above: Performed By: #### 2 [id number] #### [facility] [address] [place] [address] Davis Absolute 0.3 E9/L Normal 0.2-1.0 [facility] Comment on above: Performed By: #### 2 [id number] #### [facility] [address] [place] [address] Monocytes/100 WBC (Bld) 2.2 % Low 4.0-14.0 [facility] Comment on above: Performed By: #### 2 [id number] #### [facility] [address] [place] [address] Neutro Absolute 12.6 E9/L High 2.0-7.5 [facility] Comment on above: Performed By: #### 2 092111 #### [facility] [address] [place] [address] Neutro Auto 91.7 % High 36.0-75.0 [facility] Comment on above: Performed By: #### 2 [id number] #### [facility] [address] [place] [address] Platelet 233.0 E9/L Normal 150.0-500.0 [facility] Comment on above: Performed By: #### 2 [id number] #### [facility] [address] [place] [address] Platelet mean volume (Bld) [Entitic vol] 7.2 fL Normal 6.4-10.8 [facility] Comment on above: Performed By: #### 2 691108 #### [facility] [address] [place] [address] RBC 3.8 E12/L Low 4.3-5.9 [facility] Comment on above: Performed By: #### 2 458444 #### [facility] [address] [place] [address] WBC 13.7 E9/L High 4.0-11.0 [facility] Comment on above: Performed By: #### 2 [id number] #### [facility] [address] [place] [address] COVID-19 (MC)on 01-13-2025 SARS-CoV-2 (COVID-19) RNA DONNIE+probe Ql (Unsp spec) Not detected Normal Not Detected [facility] Comment on above: Result Comment: This assay was performed by reverse transcriptase real-time PCR method. Clinical correlation with patient history and other diagnostic information is necessary to determine patient infection status. Positive results are indicative of the presence of SARS-CoV-2 RNA. Positive results do not rule out bacterial infection or co-infection with other viruses. The agent detected may not be the definitive cause of disease. Negative results do not preclude SARS-CoV-2 infection and should not be used as the sole basis for patient management decisions. This testing is only for use under the FDA???s Emergency Use Authorization. Performed By: #### 2 [id number] #### [facility] [address] [place] [address] SARS-CoV-2 (COVID-19) RNA DONNIE+probe Ql (Unsp spec) Pass Normal Pass [facility] Comment on above: Performed By: #### 2 [id number] #### [facility] [address] [place] [address] Specimen source Nom (Unsp spec) Nasal Normal [facility] Comment on above: Performed By: #### 2 [id number] #### [facility] [address] [place] [address] Head or Brain w/o Contras ton 01-13-2025 CT Head or Brain w/o Contrast Exam Date/Time: 01/13/2025 13:19 EDT Reason for Exam: Neuro deficit, acute, stroke suspected;Stroke Report IMPRESSION: NO ACUTE INTRACRANIAL PROCESS IDENTIFIED. EXAM: CT Head or Brain w/o Contrast DATE: 01/13/2025 1:03 PM CLINICAL HISTORY: Stroke, Neuro deficit, acute, stroke suspected. COMPARISON: None available. TECHNIQUE: Routine. All CT scans at this facility use dose modulation, iterative reconstruction, and/or weight based dosing when appropriate to reduce radiation dose to as low as reasonably achievable. FINDINGS: There is no intracranial hemorrhage, mass effect, midline shift, extra-axial collection, evidence of hydrocephalus, skull fracture, or a recent ischemic infarct identified. Age-related volume loss with ex vacuo ventricular dilatation and chronic white matter changes are noted. The mastoid air cells and visualized paranasal sinuses are essentially clear. Ordering Provider: Fidel Jean Baptiste FINAL REPORT Dictated: 01/13/2025 1:23 pm Billy Jhaveri MD Signed (Electronic Signature): 01/13/2025 1:23 pm Signed by: Billy Jhaveri MD Transcribed by: BEATRIZ Technologist: JULIA Jim [facility] ED Clinical Summaryon 2024 ED Clinical Summary ED Clinical Summary [address] [address] ED Clinical Summary Person Information Name: LINDA NASCIMENTO Neela/[facility] Age: 74 Years : 1950 Sex: Female Language: Botswanan PCP: Ave Mehta MD Marital Status: Visit Id: Visit Reason: Potential stroke; Syncope/Near syncope; Weakness or fatigue; POSS STROKE Speciality: Acuity: 2 Enc Type: Inpatient Med Service: Medical Arrival: 01/13/2025 13:01:29 Discharge: LOS: 000 02:54 Checkin: 01/13/2025 13:01:29 Checkout: 01/13/2025 15:55:23 Dispo Type: Admitted as IP to this [facility] EVENTS: Event Name Event Status Request Date/Time Start Date/Time Complete Date/Time Arrive Complete 01/13/2025 13:01:29 01/13/2025 13:01:29 01/13/2025 13:01:29 Document Home Meds Request 01/13/2025 13:01:29 Triage Complete 01/13/2025 13:01:29 01/13/2025 13:34:35 01/13/2025 13:34:35 Bed Assign Complete 01/13/2025 13:01:29 01/13/2025 13:01:29 01/13/2025 13:01:29 Dr Exam Complete 01/13/2025 13:01:29 01/13/2025 13:11:23 01/13/2025 13:11:23 RN Exam Complete 01/13/2025 13:01:29 01/13/2025 13:38:26 01/13/2025 13:38:26 EKG Complete 01/13/2025 13:02:27 01/13/2025 13:31:26 NPO Request 01/13/2025 13:02:27 Pending Labs Complete 01/13/2025 13:02:27 01/13/2025 14:44:21 Blood Collect Request 01/13/2025 13:02:27 Lab Complete 01/13/2025 13:02:27 01/13/2025 13:52:36 Patient Care Request 01/13/2025 13:02:27 CT Complete 01/13/2025 13:02:27 01/13/2025 13:03:03 01/13/2025 13:19:51 X-Ray Complete 01/13/2025 13:02:27 01/13/2025 13:29:29 01/13/2025 13:49:16 RT Request 01/13/2025 13:02:27 Registration Complete 01/13/2025 13:11:23 01/13/2025 15:38:36 01/13/2025 15:38:36 Pending Labs Complete 01/13/2025 13:12:54 01/13/2025 13:56:34 Lab Complete 01/13/2025 13:12:54 01/13/2025 13:56:34 Pending Labs Complete 01/13/2025 13:25:32 01/13/2025 13:25:32 01/13/2025 13:52:36 Lab Complete 01/13/2025 13:25:32 01/13/2025 13:25:32 01/13/2025 13:52:36 Pending Labs Complete 01/13/2025 13:25:49 01/13/2025 13:25:49 01/13/2025 13:25:49 Fall Risk Request 01/13/2025 13:38:26 RR Stroke Request 01/13/2025 13:38:26 Possible Sepsis Request 01/13/2025 13:46:14 Wet Read Request 01/13/2025 13:49:16 Pending Labs Cancel 01/13/2025 14:10:55 01/13/2025 14:12:53 Lab Cancel 01/13/2025 14:10:55 01/13/2025 14:12:53 Pending Labs Inlab 01/13/2025 14:13:40 Lab Inlab 01/13/2025 14:13:40 Pending Labs Complete 01/13/2025 14:13:54 01/13/2025 14:13:54 01/13/2025 14:53:36 Pending Labs Complete 01/13/2025 14:14:35 01/13/2025 14:14:35 01/13/2025 14:52:18 Lab Complete 01/13/2025 14:14:35 01/13/2025 14:14:35 01/13/2025 14:52:18 Consult Request 01/13/2025 14:19:44 Hospitalist Consult Request 01/13/2025 14:19:44 Pending Labs Complete 01/13/2025 14:20:29 01/13/2025 15:52:42 Meds Admin Complete 01/13/2025 14:40:34 01/13/2025 15:41:01 Meds Admin Request 01/13/2025 15:11:48 Admit Request 01/13/2025 15:12:17 Patient Care Request 01/13/2025 15:12:18 Patient Care Request 01/13/2025 15:12:18 Patient Care Request 01/13/2025 15:12:18 Patient Care Request 01/13/2025 15:12:19 Medicare Form Complete 01/13/2025 15:12:20 01/13/2025 15:54:33 Patient Care Request 01/13/2025 15:12:20 Patient Care Request 01/13/2025 15:12:20 MRI Request 01/13/2025 15:16:41 Consult Request 01/13/2025 15:16:41 Pending Labs Request 01/13/2025 15:17:09 Lab Request 01/13/2025 15:17:09 Pending Labs Request 01/13/2025 15:31:51 Lab Request 01/13/2025 15:31:51 Meds Admin Request 01/13/2025 15:36:10 Reg Complete Request 01/13/2025 15:38:36 Reg Bed Request Complete 01/13/2025 15:38:36 01/13/2025 15:38:36 01/13/2025 15:38:36 Inpatient Bed Ready Complete 01/13/2025 15:55:23 01/13/2025 15:55:23 01/13/2025 15:55:23 ADDRESS: [address] [place] [id number] [facility] DOC NOTES: MEDICAL INFORMATION: Prescriptions Given: Medications to Continue with No Changes Other Medications aspirin 81 Milligram By Mouth every day. diclofenac (diclofenac sodium) By Mouth 2 times a day. fluoxetine (FLUoxetine 40 mg Cap) 1 Capsules By Mouth every day. lamotrigine (lamotrigine 100 mg Tab) 1 Tablets By Mouth every day. olanzapine (olanzapine 10 mg Tab) 1 Tablets By Mouth once a day (at bedtime). olmesartan (Benicar 40 mg Tab) 1 Tablets By Mouth every day. pravastatin (pravastatin 20 mg Tab) 1 Tablets By Mouth once a day (at bedtime). prednisoLONE ophthalmic (Omnipred 1% ophthalmic suspension) 1 Drops Both eyes every day. tizanidine (tiZANidine 4 mg Tab) 1 Tablets By Mouth 2 times a day. PATIENT EDUCATION INFORMATION: Instructions: Follow up: DIAGNOSIS: 1:Sepsis; 2:Pneumonia; 3:Stroke-like symptoms; 4:Aphasia; 5:Acute hypoxic respiratory failure; 6:Acute kidney injury Normal [facility] ED Note-Physicianon 01-14-20 ED Note-Physician ED Note-Physician Basic Information Time Seen: Bobo Ashraf Brittny Roberto 01/13/2025 13:11 Chief Complaint patient last well known time is 1130. patient at lunch, per NH pt went unresponsive, EMS called and were informed that patient possible stroke, Patient initiated IV, patient transported to [facility] ED, History of Present Illness The patient is a 74-year-old female past medical history of atrial fibrillation on Eliquis, status post pacemaker placement who presented to the emergency room from [facility] for possible stroke. The patient presented for unresponsive episode. Per EMS the patient has had left-sided facial drooping. The last well-known time was 1130 and when they went to check her around 1230 the patient was unresponsive. The patient upon arrival is awake, alert and oriented. She does have these episodes when she mumbles and she does not respond for few seconds then she goes back to responding appropriately. The patient states that she is on oxygen. She was diagnosed with pneumonia couple days ago. The patient denies any headache. She denies any dizziness or lightheadedness. She denies any chest pain. The patient denies any shortness of breath. The patient denies any nausea, vomiting. She denies any diarrhea. The patient denies any abdominal pain. The patient denies any other associated symptoms. Review of Systems Additional ROS info: Except as noted in the above Review of Systems and in the History of Present Illness all other systems have been reviewed and are negative or noncontributory. Physical Exam Vitals & Measurements T: 36.7 ???C(Oral) HR: 70(Peripheral) RR: 17 BP: 157/100 SpO2: 97% HT: 165 cm WT: 120 kg BMI: 44.08 General: alert, no acute distress Skin: warm, dry Head: no trauma, normocephalic Neck: Trachea midline, no tenderness, supple Eye: normal conjunctiva, sclera clear, PERRL, EOMI, vision unchanged ENMT: Oral mucosa moist, no pharyngeal erythema or exudate Cardiovascular: regular rate and rhythm Respiratory: Lungs CTA, respirations non labored, breath sounds equal Gastrointestinal: soft, non distended, no tenderness, no guarding Extremities: no deformity, no trauma, bilateral lower leg pedal edema with wounds on the left lower leg. One of the wounds superiorly has some drainage over it. Neurological: Alert and oriented, CN II-XII intact, motor strength equal & normal bilaterally, sensation equal & normal bilaterally, speech normal, no focal neuro deficits, normal coordination Psychiatric: cooperative, affect appropriate for age Procedure Sepsis Data [ ] Patient's [place] body weight was considered in sepsis fluid administration calculations if BMI >30 [ ] 30mL/kg Sepsis Fluid Bolus was ordered [ ] 250mL IV Crystalloid Bolus was given due to () [ ] 500mL IV Crystalloid Bolus was given due to () [ ] 1000 mL IV Crystalloid Bolus was given due to () [ ] Sepsis Re-Evaluation was performed at (time after fluid resuscitation began) The patient was found to be in severe sepsis at 1430. More likely source is pneumonia possible wound infection. Medical Decision Making MEDICAL DECISION MAKING Number and Complexity of Problems Differential Diagnosis: [] [facility] Data External documents reviewed: [] My EKG interpretation: [] My CT interpretation: [] My X-ray interpretation: [] My Ultrasound interpretation: [] Decision rules/scores evaluated: [] Discussed with: Hospitalist Treatment and Disposition ED Course: The patient presented for possible stroke with unresponsiveness. Per EMS the patient had facial drooping on the left. I do not appreciate any facial drooping. Rapid response stroke was called. The patient is not a candidate for thrombolytics as her NIH stroke scale score is 0. The patient has no focal neurological deficit however during the interview she stops answering and starts mumbling and does not respond for few seconds and after that she returns completely to the baseline. The patient states that she has a plastic in her mouth. I do not appreciate any plastic in her mouth. CT of the brain shows no acute intracranial process. The patient has a history of atrial fibrillation. She is on Eliquis. The EKG shows atrial fibrillation. Blood work reviewed. White count is elevated. The patient is slightly tachypneic. Possible sepsis due to pneumonia. The patient does have wound on the left lower leg with questionable infection in one of them. The case was discussed with hospitalist who accepted patient for admission and he recommends starting patient on Rocephin and Zithromax and he will add vancomycin. Shared decision making: [] Code status: [] Critical Care Time: 40 minutes, critical care time is separate from any procedures that are performed. The following was considered in the determination of critical care but not limited to the level medical decision-making, intensive cardiac and/or respiratory monitor, frequent vital sig (more content not included)... Normal [facility] Comment on above: Result Comment: Elec tronically Signed By: Bobo Ashraf, Brittny Mejia\.br\Date and Time Signed: 01/13/25 16:21 EDT ED Patient Education Noteon 01-13-2025 ED Patient Education Note ED Patient Education Note Normal [facility] ED Patient Summaryon 025 ED Patient Summary ED Patient Summary [place] [id number] Patient Discharge Instructions Person Information Name: LINDA NASCIMENTO Age: 74 Years Arrival Date: 01/13/2025 13:01:29 Discharge Diagnosis: 1:Sepsis; 2:Pneumonia; 3:Stroke-like symptoms; 4:Aphasia; 5:Acute hypoxic respiratory failure; 6:Acute kidney injury Primary Care Physician: Ave Mehta MD Provider Information Primary Provider: Brittny Broussard M.D. Advanced Balance Assembler:None The exam and treatment you received in the Emergency Department were for an urgent problem and are not intended as complete care. It is important that you follow up with a doctor, nurse practitioner, or physician???s assistant speech language pathologist for ongoing care. If your symptoms become worse or you do not improve as expected and you are unable to reach your usual health care provider, you should return to the Emergency Department. We are available 24 hours a day. LINDA NASCIMENTO has been given the following list of patient education materials, prescriptions and follow-up instructions: Follow-up Instructions: In the event that this physician does not participate in your insurance network, please consult with your insurance company to find a nearby participating provider. Patient Education Materials: A MESSAGE TO ALL PATIENTS REGARDING OPIOIDS PRESCRIPTION OPIOIDS: WHAT YOU NEED TO KNOW Prescription opioids can be used to help relieve [id number]-[id number] pain and are often prescribed following a surgery or injury, or for certain health conditions. These medications can be an important part of the treatment but also come with serious risks. It is important to work with your healthcare provider to make sure you are getting the safest, most effective care. WHAT ARE THE RISKS AND SIDE EFFECTS OF OPIOID USE? Prescription opioids carry serious risks of addiction and overdose, especially with prolonged use. An opioid overdose, often marked by slowed breathing, can cause sudden . The use of prescription opioids can have a number of side effects as well, even when taken as directed: ??? Tolerance???meaning you might need to take more of the medication for the same pain relief ??? Physical dependence???meaning you have symptoms of withdrawal when a medication is stopped ??? Increased sensitivity to pain ??? Constipation ??? Nausea, vomiting, and dry mouth ??? Sleepiness and dizziness ??? Confusion ??? Depression ??? Low levels of testosterone that can result in lower sex drive, energy, and strength ??? Itching and sweating RISKS ARE GREATER WITH: ??? History of drug misuse, substance use disorder, or overdose ??? Mental health conditions (such as depression or anxiety) ??? Sleep apnea ??? Older age (65 years and older) ??? Avoid alcohol while taking prescription opioids. Also, unless specifically advised by your health care provider, medications to avoid include: ??? Benzodiazepines (such as Xanax or Valium) ??? Muscle relaxants (such as Soma or Flexeril) ??? Hypnotics (such as Ambien or Lunesta) ??? Other prescription opioids KNOW YOUR OPTIONS Talk to your health care provider about ways to manage your pain that don???t involve prescription opioids. Some of these options may actually work better and have fewer risks and side effects. Options may include: ??? Pain relievers such as acetaminophen, ibuprofen, and naproxen ??? Some medication that are also used for depression or seizures ??? Physical therapy and exercise ??? Cognitive behavioral therapy, a psychological, goal-directed approach, in which patients learn how to modify physical, behavioral, and emotional triggers of pain and stress. IF YOU ARE PRESCRIBED OPIOIDS FOR PAIN: ??? Never take opioids in greater amounts or more often than prescribed. ??? Follow up with your primary health care provider. o Work together to create a plan on how to manage your pain. o Talk about ways to help manage your pain that don???t involve prescription opioids. o Talk about any and all concerns and side effects. ??? Help prevent misuse and abuse o Never sell or share prescription opioids. o Never use another person???s prescription opioids. ??? Store prescription opioids in a secure place and out of reach of others (this may include visitors, children, friends, and family). ??? Safely dispose of unused prescription opioids: Find your community drug take-back program or your pharmacy mail-back program, or flush them down the toilet, following guidance from the Food and Drug Administration (www.fda.gov/Drugs/R esourcesForYou). ??? Visit www.cdc.gov/drugover dose to learn about the risks of opioids abuse and overdose. ??? If you believe you may be struggling with addiction, tell your health care navigator and ask for guidance or call [facility]???S National Helpline at 7-040-282-BNYC. (more content not included)... Normal [facility] Hep Func Panelon 01-13-2025 Albumin [Mass/Vol] 4.5 g/dL Normal 3.3-5.0 [facility] Comment on above: Performed By: #### 2 [id number] #### [facility] [address] [place] [address] Albumin/Globulin [Mass ratio] 1.3 {ratio} Normal 1.1-2.2 [facility] Comment on above: Performed By: #### 2 [id number] #### [facility] [address] [place] [address] Alk Phos 86 Int._Unit/L Normal 21-98 [facility] Comment on above: Performed By: #### 2 [id number] #### [facility] [address] [place] [address] ALT 10 Int._Unit/L Normal 6-46 [facility] Comment on above: Performed By: #### 2 [id number] #### [facility] [address] [place] [address] AST 22 Int._Unit/L Normal 5-43 [facility] Comment on above: Performed By: #### 2 [id number] #### [facility] [address] [place] [address] Bili Direct 0.1 mg/dL Normal 0.0-0.4 [facility] Comment on above: Performed By: #### 2 [id number] #### [facility] [address] [place] [address] Bili Indirect 0.6 mg/dL Normal 0.1-0.9 [facility] Comment on above: Performed By: #### 2 [id number] #### [facility] [address] [place] [address] Bili Total 0.7 mg/dL Normal 0.0-1.1 [facility] Comment on above: Performed By: #### 2 [id number] #### [facility] [address] [place] [address] Globulin (S) [Mass/Vol] 3.5 g/dL Normal 1.4-4.0 [facility] Comment on above: Performed By: #### 2 [id number] #### [facility] [address] [place] [address] Protein [Mass/Vol] 8.0 g/dL High 6.0-7.8 [facility] Comment on above: Performed By: #### 2 [id number] #### [facility] [address] [place] [address] Lactic Acidon 01-13-2025 Lactic Acid Lvl 1.2 mmol/L Normal 0.5-2.2 [facility] Comment on above: Order Comment: Order added by EKS Rule. (FT_LACTIC_ACID_REFLEX) Adds reflex Lactic Acid 4 hours after initial if result is greater than or equal to 2.0. Performed By: #### 2 [id number] #### [facility] [address] [place] [address] Lactic Acid Lvl 2.1 mmol/L Normal 0.5-2.2 [facility] Comment on above: Performed By: #### 2 [id number] #### [facility] [address] [place] [address] Magnesiumon 01-13-2025 Magnesium [Mass/Vol] 1.9 mg/dL Normal 1.3-2.4 [facility] Comment on above: Performed By: #### 2 [id number] #### [facility] [address] [place] [address] PT & PTTon 01-13-2025 INR Coag (PPP) [Relative time] 2.02 {INR} Invalid Interpretation Code [facility] Comment on above: Result Comment: INR results are specifically intended to assess patients stabilized on long-term Anticoagulation therapy suggested INR???s ???Less Intensive Anticoagulation??? 2.0 ??? 3.0 Conventional Range 3.0 ??? 4.5 Performed By: #### 1 [id number] #### [facility] [address] [place] [address] PT 22.8 second(s) High 9.4-12.5 [facility] Comment on above: Result Comment: 15 d ays - 4 weeks 1 - 5 months 6 -11 months 1 ??? 5 years 6 ??? 10 years 11 -17 years Mean: 11.2 (9.5 ??? 12.6) Mean: 11.0 (9.7 ??? 12.8) Mean: 11.0 (9.8 ??? 13.0) Mean: 11.3 (9.9 ??? 13.4) Mean: 11.7 (10.0 ??? 14.6) Mean: 11.8 (10.0 - 14.1) Pediatric Reference ranges were obtained from a study by rick Arias al. prepared from 1437 samples obtained at 7 different centers using the same coagulation reagent and instrumentation as [facility] Currently there are no coagulation studies available worldwide for children to 14 days, and no normal ranges. Performed By: #### 1 [id number] #### [facility] [address] [place] [address] PTT 39.6 second(s) High 25.1-36.5 [facility] Comment on above: Result Comment: Para meter 15 days - 4 weeks 1 - 5 months 6 - 11 months 1 - 5 years 6 - 10 years 11 - 17 years PTT Mean: 35.4 (27.6-45.6) Mean: 33.5 (24.8-40.7) Mean: 32.4 (25.1-40.7) Mean: 31.6 (24.0-39.2) Mean: 31.6 (26.9-38.7) Mean: 31.0 (24.6-38.4) Pediatric Reference ranges were obtained from a study by Kwesi Castillo et al. prepared from 1437 samples obtained at 7 different centers using the same coagulation reagent and instrumentation as [facility]. Currently there are no coagulation studies available worldwide for children to 14 days, and no normal ranges. Heparin therapeutic range (represented by Anti-Factor Xa activity of 0.2 - 0.4 U/mL) corresponds to PTT of 56.6 - 109.0 sec. Performed By: #### 1 [id number] #### [facility] [address] [place] [address] Pre-Arrival Noteon Pre-Arrival Note Pre-Arrival Note Pre-Arrival Summary Name: , [place] [facility] Current Date: 01/13/2025 13:01:54 EDT Gender: Female Date of : Age: 74 Pre-Arrival Type: EMS ETA: 01/13/2025 13:25:00 EDT Primary Care Physician: Presenting Problem: stroke Pre-Arrival User: Cassia Alcaraz RN Referring Source: Location: [place] Completion Date/Time: 01/13/2025 12:55:00 [facility] Emergency Department Pre-Hospital Report Form Vital Signs: Pre-Hospital Report: Treatment in Route: Response to Treatment: Misc. Issues: Normal [facility] Procalcitoninon 01-13-2025 Procalcitonin <.05 Normal .00-.50 [facility] Comment on above: Result Comment: <0.5 ng/mL Low risk of severe sepsis and/or shock >2.0 ng/mL High risk of severe sepsis and/or shock Concentrations under 0.5 ng/mL do not exclude local infections or systemic infections in their initial stages (e.g.. under six hours from onset of illness). PCT concentrations between 0.5 and 2.0 ng/mL should be interpreted with consideration of the patient's history. In this range, it is recommended to retest PCT within 6 to 24 hours. Performed By: #### 2 [id number] #### [facility] [address] [place] [address] Respiratory Panel by PCRon 0 01-13-2025 Adenovirus Not detected Normal [facility] Comment on above: Result Comment: Test ing was performed using nucleic acid amplification including Influenza A, Influenza A H1, Influenza A H3, Influenza B, RSV A, RSV B, Adenovirus, Human Metapneumovirus, Parainfluenza 1,2,3, and 4, Rhinovirus, Bordetella parapertussis/bronchiseptica, Bordetella holmesii, and Bordetella pertussis. Performed By: #### 1 [id number] #### [facility] [address] [place] [address] B. holmesii Not detected Normal [facility] Comment on above: Performed By: #### 1 [id number] #### [facility] [address] [place] [id number] B. parapertussis/bronchise ptica Not detected Normal Not Detected [facility] Comment on above: Performed By: #### 1 [id number] #### [facility] [address] [place], [place] [id number] B. pertussis Not detected Normal Not Detected [facility] Comment on above: Performed By: #### 1 [id number] #### [facility] [address] [place] [address] Human Metapneumovirus Not detected Normal [facility] Comment on above: Result Comment: This test result should be correlated with clinical presentations and medical history by a healthcare provider to determine its clinical significance. Performed By: #### 1 [id number] #### [facility] [address] [place] [address] Influenza A Not detected Normal [facility] Comment on above: Performed By: #### 1 [id number] #### [facility] [address] [place] [address] Influenza A (subtype H1) Not detected Normal [facility] Comment on above: Performed By: #### 1 [id number] #### [facility] [address] [place] [address] Influenza A (subtype H3) Not detected Normal [facility] Comment on above: Performed By: #### 1 [id number] #### [facility] [address] [place] [address] Influenza B Not detected Normal [facility] Comment on above: Performed By: #### 1 [id number] #### [facility] [address] [place] [address] Parainfluenza 1 Not detected Normal [facility] Comment on above: Performed By: #### 1 [id number] #### [facility] [address] [place] [address] Parainfluenza 2 Not detected Normal [facility] Comment on above: Performed By: #### 1 [id number] #### [facility] [address] [place] [address] Parainfluenza 3 Not detected Normal [facility] Comment on above: Performed By: #### 1 [id number] #### [facility] [address] [place] [address] Parainfluenza 4 Not detected Normal [facility] Comment on above: Performed By: #### 1 [id number] #### [facility] [address] [place] [address] Resp Panel Intrl QC Pass Normal [facility] Comment on above: Performed By: #### 1 [id number] #### [facility] [address] [place] [address] Rhinovirus Not detected Normal [facility] Comment on above: Performed By: #### 1 [id number] #### [facility] [address] [place] [id number] RSV A Not detected Normal [facility] Comment on above: Performed By: #### 1 [id number] #### [facility] [address] [place] [address] RSV B Not detected Normal [facility] Comment on above: Performed By: #### 1 [id number] #### [facility] [address] [place] [address] Troponin 0 Hr.on 01-13-2025 Troponin HS 10.60 pg/mL Normal 10.10-27.10 [facility] Comment on above: Result Comment: The 95% CI (Confidence Interval) PPV (Positive Predictive Value) for myocardial infarction in females is 38 pg/mL, in males 51 pg/mL. The results should be used in conjunction with clinical conditions of myocardial infarction. (Access High Sensitivity Troponin I Instructions For Use, [facility], January 2018) Performed By: #### 1 [id number] #### [facility] [address] [place] [id number] Troponin 1 Hr.on 01-13-2025 Troponin HS 17.50 pg/mL Normal 10.10-27.10 [facility] Comment on above: Result Comment: The 95% CI (Confidence Interval) PPV (Positive Predictive Value) for myocardial infarction in females is 38 pg/mL, in males 51 pg/mL. The results should be used in conjunction with clinical conditions of myocardial infarction. (Access High Sensitivity Troponin I Instructions For Use, [facility], January 2018) Performed By: #### 1 [id number] #### [facility] [address] [place] [id number] UA with Cult Rflxon 01-14-20 25 Color (U) Colorless Abnormal Yellow [facility] Comment on above: Result Comment: Micr oscopic readings are only performed on those samples that meet specific criteria set forth by [facility]. Performed By: #### 4 [id number] #### [facility] [address] [place] [address] Ketones Ql (U) Negative Normal Negative [facility] Comment on above: Performed By: #### 4 [id number] #### [facility] [address] [place] [address] UA Blood Negative Normal Negative [facility] Comment on above: Performed By: #### 4 [id number] #### [facility] [address] [place] [address] UA Clarity Clear Normal Clear [facility] Comment on above: Performed By: #### 4 [id number] #### [facility] [address] [place] [address] UA Glucose 3+ mg/dL Abnormal Negative [facility] Comment on above: Performed By: #### 4 [id number] #### [facility] [address] [place] [address] UA Leuk Est Negative Normal Negative [facility] Comment on above: Performed By: #### 4 [id number] #### [facility] [address] [place] [address] UA Nitrite Negative Normal Negative [facility] Comment on above: Performed By: #### 4 [id number] #### [facility] [address] [place] [address] UA pH 6.5 Invalid Interpretation Code 5.0-9.0 [facility] Comment on above: Performed By: #### 4 [id number] #### [facility] [address] [place] [address] UA Protein Negative Normal Negative [facility] Comment on above: Performed By: #### 4 [id number] #### [facility] [address] [place] [address] UA Spec Grav 1.006 Invalid Interpretation Code 1.005-1.030 [facility] Comment on above: Performed By: #### 4 [id number] #### [facility] [address] [facility] [place] [address] UA Urobilinogen Negative Normal Negative [facility] Comment on above: Performed By: #### 4 [id number] #### [facility] [address] [facility] [place] [address] Urobilinogen (U) [Mass/Vol] Negative Normal Negative [facility] Comment on above: Performed By: #### 4 [id number] #### [facility] [address] [facility] [place] [address] UA Spec Desc Clean Catch Normal [facility] Comment on above: Performed By: #### 4 [id number] #### [facility] [address] [facility] [place] [address] XR Chest Single Viewon 01-13 XR Chest Single View Exam Date/Time: 01/13/2025 13:49 EDT Reason for Exam: Chest pain Report IMPRESSION: SUSPECT MILD CARDIAC DECOMPENSATION. ATYPICAL PNEUMONIA SHOULD BE EXCLUDED CLINICALLY. EXAM: XR Chest Single View DATE: 01/13/2025 1:29 PM CLINICAL HISTORY: Chest pain. COMPARISON: None available. TECHNIQUE: A portable upright AP radiograph of the chest was obtained. FINDINGS: The study is somewhat limited by the patient's body habitus, positioning and portable technique. The heart is mildly enlarged with mild vascular congestion. A left subclavian dual-lead pacemaker is present in expected position. Shallow inspiratory volumes are present with mild diffuse interstitial and airspace infiltrates suspicious for edema. There is no focal consolidation, sizable pleural effusion, pneumothorax, or other findings of concern identified. Ordering Provider: Fidel Jean Baptiste FINAL REPORT Dictated: 01/13/2025 3:07 pm Billy Jhaveri MD Signed (Electronic Signature): 01/13/2025 3:07 pm Signed by: Billy Jhaveri MD Transcribed by: BEATRIZ Technologist: DPR Normal [facility] eGFRon 01-13-2025 eGFR 33 mL/min/1.73 m2 Low >=59 [facility] Comment on above: Performed By: #### 1 [id number] #### [facility] [address] [place] [address] Office Visiton 12-31-2024 Follow-up visit [id number] Linda Nascimento 1950 F Date Provider Department Center 12/31/2024 RajeevENOCH MILIAN JUAN Lopez Family History Problem Relation Age of Onset Lung cancer Mother Stroke Father Family Status - Relation Status Age at Mother Father Level of Service:64476 [place] OFFICE/OUTPATIENT ESTABLISHED HIGH MDM 40 MIN Normal [facility] Orders Onlyon 12-31-2024 Orders Only [id number] Linda Nascimento 1950 Date Provider Department Center 12/31/2024 ROXY MARTIN JUAN Lopez Family History Problem Relation Age of Onset Lung cancer Mother Stroke Father Family Status - Relation Status Age at Mother Father Normal [facility] KERRI Antinuclear Antibodieson 07-31-2024 Antinuclear Abs, IFA Positive Critically abnormal . [facility] Comment on above: Result Comment: Nega tive <1:80 Borderline 1:80 Positive >1:80 Speckled cytoplasmic fluorescence is present. The antibodies noted in this pattern may be associated with, but not restricted to, primary biliary cirrhosis (PBC), polymyositis and dermatomyositis (PM/DM), and/or systemic lupus erythematosus (SLE). Performed By: #### T 4F, CK, CRP, TSH3, ESR, CBC, CMP #### [facility] [address] [place] [address] [place] #### HBCAB, JUSTINA, HBSAG, ALDOLASE, HCV RX PCR, HBSAB, THYGLOB AB, CHROMATIN, C4, C3, CH50, RPR W RFX, TPO, KERRI #### [facility] , Homogeneous Pattern 1:160 High . [facility] Comment on above: Result Comment: ICAP nomenclature: [id number] Performed By: #### T 4F, CK, CRP, TSH3, ESR, CBC, CMP #### [facility] [address] [place] [address] [place] #### HBCAB, JUSTINA, HBSAG, ALDOLASE, HCV RX PCR, HBSAB, THYGLOB AB, CHROMATIN, C4, C3, CH50, RPR W RFX, TPO, KERRI #### [facility] , Note 1 Comment Normal . [facility] Comment on above: Result Comment: Brigid mateus Potential Disease Association Homogeneous Systemic Lupus Erythematosus, Drug Induced Systemic Lupus Erythematosus, Chronic Autoimmune hepatitis, Juvenile Idiopathic Arthritis Speckled Sjogren Syndrome, Systemic Lupus Erythematosus, Subacute Cutaneous Lupus, Lupus, Congenital Heart Block, Mixed Connective Tissue Disease, Scleroderma-diffuse, Scleroderma-Autoimmune Myositis Overlap Syndrome, Systemic Lupus Gsbhmgfpapbbb-Unqoeottode-Vhwwgzxqur Myositis Overlap Syndrome, Systemic Autoimmune Rheumatic Disease, [...] Cytopenias, Linear Scleroderma, Antiphospholipid Syndrome Performed at: [employer] [address] [id number] Music Autographer: Iain Siegel PhD, Phone: [phone] Performed By: #### T 4F, CK, CRP, TSH3, ESR, CBC, CMP #### [address] #### HBCAB, JUSTINA, HBSAG, ALDOLASE, HCV RX PCR, HBSAB, THYGLOB AB, CHROMATIN, C4, C3, CH50, RPR W RFX, TPO, KERRI #### [facility] , Alanine aminotransferase [En zymatic activity/volume] in Serum or PlasmaOrdered By: Beti Ham on 07-31-2024 ALT [Catalytic activity/Vol] Alanine aminotransferase [Enzymatic activity/volume] in Serum or Plasma [facility] Albumin [Mass/volume] in Ser um or Plasma by Bromocresol green (BCG) dye binding methoOrdered By: Beti Ham on 07-31-2024 Albumin BCG dye [Mass/Vol] Albumin [Mass/volume] in Serum or Plasma by Bromocresol green (BCG) dye binding metho 3.5-5.7 [facility] Aldolaseon 07-31-2024 Aldolase 3.3 U/L Normal 3.3-10.3 [facility] Comment on above: Result Comment: Perf ormed at: [email or web address] [address] [id number] Music Autographer: Iain Siegel PhD, Phone: [phone] PERFORMED BY: [place] [address] PATHOLOGIST TIMEKEEPER SARAHI JUAREZ M.D. Performed By: #### T 4F, CK, CRP, TSH3, ESR, CBC, CMP #### [place] [address] [place] #### HBCAB, JUSTINA, HBSAG, ALDOLASE, HCV RX PCR, HBSAB, THYGLOB AB, CHROMATIN, C4, C3, CH50, RPR W RFX, TPO, KERRI #### [facility] , Alkaline phosphatase [Enzyma tic activity/volume] in Serum or PlasmaOrdered By: Beti Ham on 07-31-2024 ALP [Catalytic activity/Vol] Alkaline phosphatase [Enzymatic activity/volume] in Serum or Plasma 34-104 [facility] Angiotensin Converting Enzym libby 07-31-2024 Angiotensin converting enzyme [Catalytic activity/Vol] 53 U/L Normal 14-82 [facility] Comment on above: Result Comment: Perf ormed at: [facility] [id number] Music Autographer: Iain Siegel PhD, Phone: [phone] Performed By: #### T 4F, CK, CRP, TSH3, ESR, CBC, CMP #### [place] [address] [place] #### HBCAB, JUSTINA, HBSAG, ALDOLASE, HCV RX PCR, HBSAB, THYGLOB AB, CHROMATIN, C4, C3, CH50, RPR W RFX, TPO, KERRI #### [facility] , Antithyroglobulin Abon 07-31 Antithyroglobulin Ab <1.0 Normal 0.0-0.9 [facility] Comment on above: Result Comment: Thyr oglobulin Antibody measured by [facility] Methodology It should be noted that the presence of thyroglobulin antibodies may not be pathogenic nor diagnostic, especially at very low levels. The assay fancy needleworker has found that four percent of individuals without evidence of thyroid disease or autoimmunity will have positive TgAb levels up to 4 IU/mL. Performed at: [email or web address] [address] [place], [place] [id number] Music Autographer: Iain Siegel PhD, Phone: [phone] Performed By: #### T 4F, CK, CRP, TSH3, ESR, CBC, CMP #### [facility] [address] [place] [address] [place] #### HBCAB, JUSTINA, HBSAG, ALDOLASE, HCV RX PCR, HBSAB, THYGLOB AB, CHROMATIN, C4, C3, CH50, RPR W RFX, TPO, KERRI #### [facility] , Aspartate aminotransferase [ Enzymatic activity/volume] in Serum or PlasmaOrdered By: Beti Ham on 07-31-2024 AST [Catalytic activity/Vol] Aspartate aminotransferase [Enzymatic activity/volume] in Serum or Plasma 13-39 [facility] Basophils Auto (Bld) [#/Vol] Ordered By: Beti Ham on 07-31-2024 Basophils (Bld) [#/Vol] Automated basoph il count 0.0-0.2 [facility] Basophils/100 WBC Auto (Bld) Ordered By: Beti Ham on 07-31-2024 Basophils/100 WBC (Bld) Automated basophil % . [facility] Bilirubin.total [Mass/volume ] in Serum or PlasmaOrdered By: Beti Ham on 07-31-2024 Bilirubin [Mass/Vol] Bilirubin.total [Mass/volume] in Serum or Plasma 0.3-1.0 [facility] C reactive protein [Mass/vol ume] in Serum or PlasmaOrdered By: Beti Ham on 07-31-2024 CRP [Mass/Vol] C reactive protein [Mass/volume] in Serum or Plasma High 0.0-0.5 [facility] C-Reactive Proteinon 025 C-Reactive Protein 2.6 mg/dL High 0.0-0.5 [facility] Comment on above: Performed By: #### T 4F, CK, CRP, TSH3, ESR, CBC, CMP #### [place] [address] [place] #### HBCAB, JUSTINA, HBSAG, ALDOLASE, HCV RX PCR, HBSAB, THYGLOB AB, CHROMATIN, C4, C3, CH50, RPR W RFX, TPO, KERRI #### [facility] , Calcium [Mass/volume] in Ser um or PlasmaOrdered By: Beti Ham on 07-31-2024 Calcium [Mass/Vol] Calcium [Mass/volume] in Serum or Plasma 8.6-10.3 [facility] Carbon dioxide, total [Moles /volume] in Serum or PlasmaOrdered By: Beti Ham on 07-31-2024 CO2 [Moles/Vol] Carbon dioxide, total [Moles/volume] in Serum or Plasma High 21.0-31.0 [facility] Chloride [Moles/volume] in S anne or PlasmaOrdered By: Beti Ham on 07-31-2024 Chloride [Moles/Vol] Chloride [Moles/volume] in Serum or Plasma 98-107 [facility] Chromatin Antibodyon 025 Chromatin Antibody <0.2 Normal 0.0-0.9 [facility] Comment on above: Performed By: #### T 4F, CK, CRP, TSH3, ESR, CBC, CMP #### [facility] [address] [place] [address] [place] #### HBCAB, JUSTINA, HBSAG, ALDOLASE, HCV RX PCR, HBSAB, THYGLOB AB, CHROMATIN, C4, C3, CH50, RPR W RFX, TPO, KERRI #### [facility] , Complement C3on 07-31-2024 Complement C3 189 mg/dL High 82-167 [facility] Comment on above: Result Comment: Perf ormed at: CB - [facility] [address] [id number] Music Autographer: Iain Siegel PhD, Phone: [phone] Performed By: #### T 4F, CK, CRP, TSH3, ESR, CBC, CMP #### [facility] [address] [place] [address] [place] #### HBCAB, JUSTINA, HBSAG, ALDOLASE, HCV RX PCR, HBSAB, THYGLOB AB, CHROMATIN, C4, C3, CH50, RPR W RFX, TPO, KERRI #### [facility] , Complement C4on 07-31-2024 Complement C4 36 mg/dL Normal 12-38 [facility] Comment on above: Performed By: #### T 4F, CK, CRP, TSH3, ESR, CBC, CMP #### [place] [address] [place] #### HBCAB, JUSTINA, HBSAG, ALDOLASE, HCV RX PCR, HBSAB, THYGLOB AB, CHROMATIN, C4, C3, CH50, RPR W RFX, TPO, KERRI #### [facility] , Complement Total (CH50)on Complement Total (CH50) >60 Normal >41 T [facility] Comment on above: Result [...] out of range values. Performed at: - [facility] [id number] Music Autographer: Iain Siegel PhD, Phone: [phone] PERFORMED BY: [place] [address] PATHOLOGIST TIMEKEEPER SARAHI JUAREZ M.D. Performed By: #### T 4F, CK, CRP, TSH3, ESR, CBC, CMP #### [place] [address] [place] #### HBCAB, JUSTINA, HBSAG, ALDOLASE, HCV RX PCR, HBSAB, THYGLOB AB, CHROMATIN, C4, C3, CH50, RPR W RFX, TPO, KERRI #### [facility] , Complete Blood Count Auto Di ffon 07-31-2024 Basophils (Bld) [#/Vol] 0.1 10*3/uL Normal 0.0-0.2 [facility] Comment on above: Performed By: #### T 4F, CK, CRP, TSH3, ESR, CBC, CMP #### [place] [address] [place] #### HBCAB, JUSTINA, HBSAG, ALDOLASE, HCV RX PCR, HBSAB, THYGLOB AB, CHROMATIN, C4, C3, CH50, RPR W RFX, TPO, KERRI #### [facility] , Basophils/100 WBC (Bld) 0.9 % Normal . T will [facility] Comment on above: Performed By: #### T 4F, CK, CRP, TSH3, ESR, CBC, CMP #### [address] #### HBCAB, JUSTINA, HBSAG, ALDOLASE, HCV RX PCR, HBSAB, THYGLOB AB, CHROMATIN, C4, C3, CH50, RPR W RFX, TPO, KERRI #### [facility] , Eosinophils (Bld) [#/Vol] 0.3 10*3/uL Normal 0.0-0.45 [facility] Comment on above: Performed By: #### T 4F, CK, CRP, TSH3, ESR, CBC, CMP #### [place] [address] [place] #### HBCAB, JUSTINA, HBSAG, ALDOLASE, HCV RX PCR, HBSAB, THYGLOB AB, CHROMATIN, C4, C3, CH50, RPR W RFX, TPO, KERRI #### [facility] , Eosinophils/100 WBC (Bld) 4.4 % Normal . [facility] Comment on above: Performed By: #### T 4F, CK, CRP, TSH3, ESR, CBC, CMP #### [place] [address] [place] #### HBCAB, JUSTINA, HBSAG, ALDOLASE, HCV RX PCR, HBSAB, THYGLOB AB, CHROMATIN, C4, C3, CH50, RPR W RFX, TPO, KERRI #### [facility] , Erythrocyte distribution width (RBC) [Ratio] 15.0 % Normal 11.9-15.3 [facility] Comment on above: Performed By: #### T 4F, CK, CRP, TSH3, ESR, CBC, CMP #### [address] #### HBCAB, JUSTINA, HBSAG, ALDOLASE, HCV RX PCR, HBSAB, THYGLOB AB, CHROMATIN, C4, C3, CH50, RPR W RFX, TPO, KERRI #### [facility] , Hematocrit (Bld) [Volume fraction] 34.5 % Normal 34.0-46.4 [facility] Comment on above: Performed By: #### T 4F, CK, CRP, TSH3, ESR, CBC, CMP #### [address] #### HBCAB, JUSTINA, HBSAG, ALDOLASE, HCV RX PCR, HBSAB, THYGLOB AB, CHROMATIN, C4, C3, CH50, RPR W RFX, TPO, KERRI #### [facility] , Hemoglobin (Bld) [Mass/Vol] 12.0 g/dL Normal 11.8-15.4 [facility] Comment on above: Performed By: #### T 4F, CK, CRP, TSH3, ESR, CBC, CMP #### [address] #### HBCAB, JUSTINA, HBSAG, ALDOLASE, HCV RX PCR, HBSAB, THYGLOB AB, CHROMATIN, C4, C3, CH50, RPR W RFX, TPO, KERRI #### [facility] , Lymphocytes (Bld) [#/Vol] 1.1 10*3/uL Normal 1.00-4.8 [facility] Comment on above: Performed By: #### T 4F, CK, CRP, TSH3, ESR, CBC, CMP #### [address] #### HBCAB, JUSTINA, HBSAG, ALDOLASE, HCV RX PCR, HBSAB, THYGLOB AB, CHROMATIN, C4, C3, CH50, RPR W RFX, TPO, KERRI #### [facility] , Lymphocytes/100 WBC (Bld) 15.8 % Normal . [facility] Comment on above: Performed By: #### T 4F, CK, CRP, TSH3, ESR, CBC, CMP #### [address] #### HBCAB, JUSTINA, HBSAG, ALDOLASE, HCV RX PCR, HBSAB, THYGLOB AB, CHROMATIN, C4, C3, CH50, RPR W RFX, TPO, KERRI #### [facility] , MCH (RBC) [Entitic mass] 36.0 pg High 24.7-34.3 [facility] Comment on above: Performed By: #### T 4F, CK, CRP, TSH3, ESR, CBC, CMP #### [place] [address] [place] #### HBCAB, JUSTINA, HBSAG, ALDOLASE, HCV RX PCR, HBSAB, THYGLOB AB, CHROMATIN, C4, C3, CH50, RPR W RFX, TPO, KERRI #### [facility] , MCV (RBC) [Entitic vol] 103.7 fL High 80-100 T he [facility] Comment on above: Performed By: #### T 4F, CK, CRP, TSH3, ESR, CBC, CMP #### [place] [address] [place] #### HBCAB, JUSTINA, HBSAG, ALDOLASE, HCV RX PCR, HBSAB, THYGLOB AB, CHROMATIN, C4, C3, CH50, RPR W RFX, TPO, KERRI #### [facility] , Mean Corpuscular HGB Conc 34.7 g/dL Normal 32.0-35.0 [facility] Comment on above: Performed By: #### T 4F, CK, CRP, TSH3, ESR, CBC, CMP #### [place] [address] [place] #### HBCAB, JUSTINA, HBSAG, ALDOLASE, HCV RX PCR, HBSAB, THYGLOB AB, CHROMATIN, C4, C3, CH50, RPR W RFX, TPO, KERRI #### [facility] , Monocytes (Bld) [#/Vol] 0.5 10*3/uL Normal 0.0-0.8 [facility] Comment on above: Performed By: #### T 4F, CK, CRP, TSH3, ESR, CBC, CMP #### [place] [address] [place] #### HBCAB, JUSTINA, HBSAG, ALDOLASE, HCV RX PCR, HBSAB, THYGLOB AB, CHROMATIN, C4, C3, CH50, RPR W RFX, TPO, KERRI #### [facility] , Monocytes/100 WBC (Bld) 7.0 % Normal . [facility] Comment on above: Performed By: #### T 4F, CK, CRP, TSH3, ESR, CBC, CMP #### [place] [address] [place] #### HBCAB, JUSTINA, HBSAG, ALDOLASE, HCV RX PCR, HBSAB, THYGLOB AB, CHROMATIN, C4, C3, CH50, RPR W RFX, TPO, KERRI #### [facility] , Neutrophils (Bld) [#/Vol] 5.2 10*3/uL Normal 1.8-7.7 [facility] Comment on above: Performed By: #### T 4F, CK, CRP, TSH3, ESR, CBC, CMP #### [place] [address] [place] #### HBCAB, JUSTINA, HBSAG, ALDOLASE, HCV RX PCR, HBSAB, THYGLOB AB, CHROMATIN, C4, C3, CH50, RPR W RFX, TPO, KERRI #### [facility] , Neutrophils/100 WBC (Bld) 71.9 % Normal . [facility] Comment on above: Performed By: #### T 4F, CK, CRP, TSH3, ESR, CBC, CMP #### [place] [address] [place] #### HBCAB, JUSTINA, HBSAG, ALDOLASE, HCV RX PCR, HBSAB, THYGLOB AB, CHROMATIN, C4, C3, CH50, RPR W RFX, TPO, KERRI #### [facility] , NRBC% 0.1 /100{WBC} Normal 0-0.5 [facility] Comment on above: Performed By: #### T 4F, CK, CRP, TSH3, ESR, CBC, CMP #### [facility] [address] #### HBCAB, JUSTINA, HBSAG, ALDOLASE, HCV RX PCR, HBSAB, THYGLOB AB, CHROMATIN, C4, C3, CH50, RPR W RFX, TPO, KERRI #### [facility] , Platelet mean volume (Bld) [Entitic vol] 7.9 fL Normal 6.3-10.7 [facility] Comment on above: Performed By: #### T 4F, CK, CRP, TSH3, ESR, CBC, CMP #### [address] #### HBCAB, JUSTINA, HBSAG, ALDOLASE, HCV RX PCR, HBSAB, THYGLOB AB, CHROMATIN, C4, C3, CH50, RPR W RFX, TPO, KERRI #### [facility] , Platelets (Bld) [#/Vol] 204 10*3/uL Normal 150-450 [facility] Comment on above: Performed By: #### T 4F, CK, CRP, TSH3, ESR, CBC, CMP #### [place] [address] [place] #### HBCAB, JUSTINA, HBSAG, ALDOLASE, HCV RX PCR, HBSAB, THYGLOB AB, CHROMATIN, C4, C3, CH50, RPR W RFX, TPO, KERRI #### [facility] , RBC (Bld) [#/Vol] 3.32 10*6/uL Low 3.60-5.00 [facility] Comment on above: Performed By: #### T 4F, CK, CRP, TSH3, ESR, CBC, CMP #### [address] #### HBCAB, JUSTINA, HBSAG, ALDOLASE, HCV RX PCR, HBSAB, THYGLOB AB, CHROMATIN, C4, C3, CH50, RPR W RFX, TPO, KERRI #### [facility] , WBC (Bld) [#/Vol] 7.2 10*3/uL Normal 3.8-11.6 [facility] Comment on above: Performed By: #### T 4F, CK, CRP, TSH3, ESR, CBC, CMP #### [address] #### HBCAB, JUSTINA, HBSAG, ALDOLASE, HCV RX PCR, HBSAB, THYGLOB AB, CHROMATIN, C4, C3, CH50, RPR W RFX, TPO, KERRI #### [facility] , Comprehensive Metabolic Pane mahendra 07-31-2024 Albumin [Mass/Vol] 3.7 g/dL Normal 3.5-5.7 [facility] Comment on above: Performed By: #### T 4F, CK, CRP, TSH3, ESR, CBC, CMP #### [address] #### HBCAB, JUSTINA, HBSAG, ALDOLASE, HCV RX PCR, HBSAB, THYGLOB AB, CHROMATIN, C4, C3, CH50, RPR W RFX, TPO, KERRI #### [facility] , Albumin/Globulin [Mass ratio] 1.4 {ratio} Normal [facility] Comment on above: Performed By: #### T 4F, CK, CRP, TSH3, ESR, CBC, CMP #### [place] [address] [place] #### HBCAB, JUSTINA, HBSAG, ALDOLASE, HCV RX PCR, HBSAB, THYGLOB AB, CHROMATIN, C4, C3, CH50, RPR W RFX, TPO, KERRI #### [facility] , ALP [Catalytic activity/Vol] 94 U/L Normal 34-104 [facility] Comment on above: Performed By: #### T 4F, CK, CRP, TSH3, ESR, CBC, CMP #### [place] [address] [place] #### HBCAB, JUSTINA, HBSAG, ALDOLASE, HCV RX PCR, HBSAB, THYGLOB AB, CHROMATIN, C4, C3, CH50, RPR W RFX, TPO, KERRI #### [facility] , ALT [Catalytic activity/Vol] 10 U/L Normal 7-52 [facility] Comment on above: Performed By: #### T 4F, CK, CRP, TSH3, ESR, CBC, CMP #### [address] #### HBCAB, JUSTINA, HBSAG, ALDOLASE, HCV RX PCR, HBSAB, THYGLOB AB, CHROMATIN, C4, C3, CH50, RPR W RFX, TPO, KERRI #### [facility] , Anion gap [Moles/Vol] 9.2 mmol/L Normal 6.0-15.0 [facility] Comment on above: Performed By: #### T 4F, CK, CRP, TSH3, ESR, CBC, CMP #### [place] [address] [place] #### HBCAB, JUSTINA, HBSAG, ALDOLASE, HCV RX PCR, HBSAB, THYGLOB AB, CHROMATIN, C4, C3, CH50, RPR W RFX, TPO, KERRI #### [facility] , AST [Catalytic activity/Vol] 14 U/L Normal 13-39 [facility] Comment on above: Performed By: #### T 4F, CK, CRP, TSH3, ESR, CBC, CMP #### [place] [address] [place] #### HBCAB, JUSTINA, HBSAG, ALDOLASE, HCV RX PCR, HBSAB, THYGLOB AB, CHROMATIN, C4, C3, CH50, RPR W RFX, TPO, KERRI #### [facility] , Bilirubin [Mass/Vol] 0.5 mg/dL Normal 0.3-1.0 [facility] Comment on above: Performed By: #### T 4F, CK, CRP, TSH3, ESR, CBC, CMP #### [address] #### HBCAB, JUSTINA, HBSAG, ALDOLASE, HCV RX PCR, HBSAB, THYGLOB AB, CHROMATIN, C4, C3, CH50, RPR W RFX, TPO, KERRI #### [facility] , Calcium [Mass/Vol] 9.2 mg/dL Normal 8.6-10.3 [facility] [facility] Comment on above: Performed By: #### T 4F, CK, CRP, TSH3, ESR, CBC, CMP #### [place] [address] [place] #### HBCAB, JUSTINA, HBSAG, ALDOLASE, HCV RX PCR, HBSAB, THYGLOB AB, CHROMATIN, C4, C3, CH50, RPR W RFX, TPO, KERRI #### [facility] , Chloride [Moles/Vol] 102 mmol/L Normal 98-107 [facility] Comment on above: Performed By: #### T 4F, CK, CRP, TSH3, ESR, CBC, CMP #### [place] [address] [place] #### HBCAB, JUSTINA, HBSAG, ALDOLASE, HCV RX PCR, HBSAB, THYGLOB AB, CHROMATIN, C4, C3, CH50, RPR W RFX, TPO, KERRI #### [facility] , CO2 [Moles/Vol] 34.1 mmol/L High 21.0-31.0 [facility] Comment on above: Performed By: #### T 4F, CK, CRP, TSH3, ESR, CBC, CMP #### [place] [address] [place] #### HBCAB, JUSTINA, HBSAG, ALDOLASE, HCV RX PCR, HBSAB, THYGLOB AB, CHROMATIN, C4, C3, CH50, RPR W RFX, TPO, KERRI #### [facility] , Creatinine [Mass/Vol] 1.42 mg/dL High 0.60-1.20 [facility] Comment on above: Performed By: #### T 4F, CK, CRP, TSH3, ESR, CBC, CMP #### [address] #### HBCAB, UJSTINA, HBSAG, ALDOLASE, HCV RX PCR, HBSAB, THYGLOB AB, CHROMATIN, C4, C3, CH50, RPR W RFX, TPO, KERRI #### [facility] , Estimated GFR 38.332 mL/Min Normal [facility] Comment on above: Performed By: #### T 4F, CK, CRP, TSH3, ESR, CBC, CMP #### [address] #### HBCAB, JUSTINA, HBSAG, ALDOLASE, HCV RX PCR, HBSAB, THYGLOB AB, CHROMATIN, C4, C3, CH50, RPR W RFX, TPO, KERRI #### [facility] , Globulin (S) [Mass/Vol] 2.7 g/dL Normal T [facility] Comment on above: Performed By: #### T 4F, CK, CRP, TSH3, ESR, CBC, CMP #### [place] [address] [place] #### HBCAB, JUSTINA, HBSAG, ALDOLASE, HCV RX PCR, HBSAB, THYGLOB AB, CHROMATIN, C4, C3, CH50, RPR W RFX, TPO, KERRI #### [facility] , Glucose [Mass/Vol] 95 mg/dL Normal 70-100 [facility] Comment on above: Result Comment: [place] Glucose Reference Range is dependent on time and content of last meal. Glucose of more than 200 mg/dL in a nonstressed, ambulatory subject supports the diagnosis of Diabetes Mellitus. ADA recommended reference range Performed By: #### T 4F, CK, CRP, TSH3, ESR, CBC, CMP #### [facility] [address] #### HBCAB, JUSTINA, HBSAG, ALDOLASE, HCV RX PCR, HBSAB, THYGLOB AB, CHROMATIN, C4, C3, CH50, RPR W RFX, TPO, KERRI #### [facility] , Potassium [Moles/Vol] 4.3 mmol/L Normal 3.5-5.1 [facility] Comment on above: Performed By: #### T 4F, CK, CRP, TSH3, ESR, CBC, CMP #### [address] #### HBCAB, JUSTINA, HBSAG, ALDOLASE, HCV RX PCR, HBSAB, THYGLOB AB, CHROMATIN, C4, C3, CH50, RPR W RFX, TPO, KERRI #### [facility] , Protein [Mass/Vol] 6.4 g/dL Normal 6.4-8.9 [facility] Comment on above: Performed By: #### T 4F, CK, CRP, TSH3, ESR, CBC, CMP #### [address] #### HBCAB, JUSTINA, HBSAG, ALDOLASE, HCV RX PCR, HBSAB, THYGLOB AB, CHROMATIN, C4, C3, CH50, RPR W RFX, TPO, KERRI #### [facility] , Sodium [Moles/Vol] 141 mmol/L Normal 136-145 [facility] Comment on above: Performed By: #### T 4F, CK, CRP, TSH3, ESR, CBC, CMP #### [place] [address] [place] #### HBCAB, JUSTINA, HBSAG, ALDOLASE, HCV RX PCR, HBSAB, THYGLOB AB, CHROMATIN, C4, C3, CH50, RPR W RFX, TPO, KERRI #### [facility] , Urea nitrogen [Mass/Vol] 22 mg/dL Normal 7-25 [facility] Comment on above: Performed By: #### T 4F, CK, CRP, TSH3, ESR, CBC, CMP #### [facility] [address] [place] [address] [place] #### HBCAB, JUSTINA, HBSAG, ALDOLASE, HCV RX PCR, HBSAB, THYGLOB AB, CHROMATIN, C4, C3, CH50, RPR W RFX, TPO, KERRI #### [facility] , Creatine Kinaseon 07-31-2024 CK [Catalytic activity/Vol] 23 U/L Low 30-223 [facility] Comment on above: Result Comment: PERF ORMED BY: [place] [address] PATHOLOGIST TIMEKEEPER SARAHI JUAREZ M.D. Performed By: #### T 4F, CK, CRP, TSH3, ESR, CBC, CMP #### [address] #### HBCAB, JUSTINA, HBSAG, ALDOLASE, HCV RX PCR, HBSAB, THYGLOB AB, CHROMATIN, C4, C3, CH50, RPR W RFX, TPO, KERRI #### [facility] , Creatine kinase [Enzymatic a ctivity/volume] in Serum or PlasmaOrdered By: Beti Ham on 07-31-2024 CK [Catalytic activity/Vol] Creatine kinase [Enzymatic activity/volume] in Serum or Plasma Low 30-223 [facility] Creatinine [Mass/volume] in Serum or PlasmaOrdered By: Beti Ham on 07-31-2024 Creatinine [Mass/Vol] Creatinine [Mass/volume] in Serum or Plasma High 0.60-1.20 [facility] Eosinophils Auto (Bld) [#/Vo l]Ordered By: Beti Ham on 07-31-2024 Eosinophils (Bld) [#/Vol] Automated eosinophil count 0.0-0.45 [facility] Eosinophils/100 WBC Auto (Bl d)Ordered By: Beti Ham on 07-31-2024 Eosinophils/100 WBC (Bld) Automated eosinophil % . [facility] Erythrocyte Sedimentation Ra chapincito 07-31-2024 ESR (Bld) [Velocity] 58 mm/h High 0-29 [facility] Comment on above: Result Comment: PERF ORMED BY: [place] [address] PATHOLOGIST TIMEKEEPER SARAHI JUAREZ M.D. Performed By: #### T 4F, CK, CRP, TSH3, ESR, CBC, CMP #### [place] [address] [place] #### HBCAB, JUSTINA, HBSAG, ALDOLASE, HCV RX PCR, HBSAB, THYGLOB AB, CHROMATIN, C4, C3, CH50, RPR W RFX, TPO, KERRI #### [facility] , Erythrocyte distribution wid th Auto (RBC) [Ratio]Ordered By: Beti Ham on 07-31-2024 Erythrocyte distribution width (RBC) [Ratio] Erythrocyte distribution width [Ratio] by Automated count 11.9-15.3 [facility] Erythrocyte sedimentation ra te by Photometric methodOrdered By: Beti Ham on 07-31-2024 ESR Photometric method (Bld) [Velocity] Erythrocyte sedimentation rate by Photometric method High 0-29 [facility] Free T4 (Free Thyroxine)on 0 07-31-2024 Free T4 [Mass/Vol] 0.80 ng/dL Normal 0.61-1.12 [facility] Comment on above: Performed By: #### T 4F, CK, CRP, TSH3, ESR, CBC, CMP #### [place] [address] [place] #### HBCAB, JUSTINA, HBSAG, ALDOLASE, HCV RX PCR, HBSAB, THYGLOB AB, CHROMATIN, C4, C3, CH50, RPR W RFX, TPO, KERRI #### [facility] , Globulin Calc (S) [Mass/Vol] Ordered By: Beti Ham on 07-31-2024 Globulin (S) [Mass/Vol] Serum globulin measurement by calculation (mass/volume) [facility] Glucose [Mass/volume] in Ser um or PlasmaOrdered By: Beti Ham on 07-31-2024 Glucose [Mass/Vol] Glucose [Mass/volume] in Serum or Plasma 70-100 [facility] Comment on above: ADA recommended refe rence rangeRandom Glucose Reference Range is dependent on time and content of last meal. Glucose of more than 200 mg/dL in a nonstressed, ambulatory subject supports the diagnosis of Diabetes Mellitus. Hematocrit Auto (Bld) [Volum e fraction]Ordered By: Beti Ham on 07-31-2024 Hematocrit (Bld) [Volume fraction] Hematocrit [Volume Fraction] of Blood by Automated count 34.0-46.4 [facility] Hemoglobin [Mass/volume] in BloodOrdered By: Beti Ham on 07-31-2024 Hemoglobin (Bld) [Mass/Vol] Hemoglobin [Mass/volume] in Blood 11.8-15.4 [facility] Hep C Ab wRfx to Qnt PCRon 0 07-31-2024 Hepatitis C Virus Antibody Non-Reactive Normal Non Reactive [facility] Comment on above: Performed By: #### T 4F, CK, CRP, TSH3, ESR, CBC, CMP #### [facility] [address] [place] [address] [place] #### HBCAB, JUSTINA, HBSAG, ALDOLASE, HCV RX PCR, HBSAB, THYGLOB AB, CHROMATIN, C4, C3, CH50, RPR W RFX, TPO, KERRI #### [facility] , Interpretation Hepatitis C Comment Normal . [facility] Comment on above: Result Comment: Not infected with HCV unless early or acute infection is suspected (which may be delayed in an immunocompromised individual), or other evidence exists to indicate HCV infection. Performed By: #### T 4F, CK, CRP, TSH3, ESR, CBC, CMP #### [facility] [address] [place] [address] [place] #### HBCAB, JUSTINA, HBSAG, ALDOLASE, HCV RX PCR, HBSAB, THYGLOB AB, CHROMATIN, C4, C3, CH50, RPR W RFX, TPO, KERRI #### [facility] , Hepatitis B Core Antibodyon 07-31-2024 Hepatitis B Core Antibody Negative Normal Negative [facility] Comment on above: Result Comment: Perf ormed at: - [facility] [place] [id number] Music Autographer: Iain Siegel PhD, Phone: [phone] Performed By: #### T 4F, CK, CRP, TSH3, ESR, CBC, CMP #### [address] #### HBCAB, JUSTINA, HBSAG, ALDOLASE, HCV RX PCR, HBSAB, THYGLOB AB, CHROMATIN, C4, C3, CH50, RPR W RFX, TPO, KERRI #### [facility] , Hepatitis B Surface Antibody on 07-31-2024 Hepatitis B Surface Antibody Non-Reactive Normal . [facility] Comment on above: Result Comment: Non Reactive: Not immune to HBV infection. Equivocal: Unable to determine if anti-HBs is present at levels consistent with immunity. Reactive: Anti-HBs concentration detected at greater than 10 mIU/mL. Individual is considered to be immune to infection with HBV. Performed By: #### T 4F, CK, CRP, TSH3, ESR, CBC, CMP #### [address] #### HBCAB, JUSTINA, HBSAG, ALDOLASE, HCV RX PCR, HBSAB, THYGLOB AB, CHROMATIN, C4, C3, CH50, RPR W RFX, TPO, KERRI #### [facility] , Hepatitis B Surface Antigeno n 07-31-2024 HBsAg Screen Negative Normal Negative [facility] Comment on above: Result Comment: PERF ORMED BY: [place] [address] PATHOLOGIST TIMEKEEPER SARAHI JUAREZ M.D. Performed By: #### T 4F, CK, CRP, TSH3, ESR, CBC, CMP #### [place] [address] [place] #### HBCAB, JUSTINA, HBSAG, ALDOLASE, HCV RX PCR, HBSAB, THYGLOB AB, CHROMATIN, C4, C3, CH50, RPR W RFX, TPO, KERRI #### [facility] , Leukocytes [#/volume] correc umang for nucleated erythrocytes in Blood by Automated counOrdered By: Beti Ham on 07-31-2024 WBC corrected for nucl RBC Auto (Bld) [#/Vol] Leukocytes [#/volume] corrected for nucleated erythrocytes in Blood by Automated coun 3.8-11.6 [facility] Lymphocytes Auto (Bld) [#/Vo l]Ordered By: Beti Ham on 07-31-2024 Lymphocytes (Bld) [#/Vol] Lymphocytes [#/volume] in Blood by Automated count 1.00-4.8 [facility] Lymphocytes/100 WBC Auto (Bl d)Ordered By: Beti Ham on 07-31-2024 Lymphocytes/100 WBC (Bld) Lymphocytes/100 leukocytes in Blood by Automated count . [facility] MCH Auto (RBC) [Entitic mass ]Ordered By: Beti Ham on 07-31-2024 MCH (RBC) [Entitic mass] MCH [Entitic mass] by Automated count High 24.7-34.3 [facility] MCHC Auto (RBC) [Mass/Vol]Or dered By: Beti Ham on 07-31-2024 MCHC (RBC) [Mass/Vol] MCHC [Mass/volume] by Automated count 32.0-35.0 [facility] MCV Auto (RBC) [Entitic vol] Ordered By: Beti Ham on 07-31-2024 MCV (RBC) [Entitic vol] MCV [Entitic vol ume] by Automated count High 80-100 [facility] Monocytes Auto (Bld) [#/Vol] Ordered By: Beti Ham on 07-31-2024 Monocytes (Bld) [#/Vol] Automated blood monocyte count 0.0-0.8 [facility] Monocytes/100 WBC Auto (Bld) Ordered By: Beti Ham on 07-31-2024 Monocytes/100 WBC (Bld) Automated monocyte % . [facility] Neutrophils Auto (Bld) [#/Vo l]Ordered By: Beti Ham on 07-31-2024 Neutrophils (Bld) [#/Vol] Neutrophils [#/volume] in Blood by Automated count 1.8-7.7 [facility] Neutrophils/100 WBC Auto (Bl d)Ordered By: Beti Ham on 07-31-2024 Neutrophils/100 WBC (Bld) Automated neutrophil % . [facility] No Panel InformationOrdered By: Beti Ham on 07-31-2024 Estimated GFR (CKD-EPI) 38.332 mL/Min [facility] Pharmacy Creatinine Clearance (Chem N/A [facility] Nucleated erythrocytes [Pres ence] in Blood by Automated countOrdered By: Beti Ham on 07-31-2024 Nucleated RBC Auto Ql (Bld) Nucleated erythrocytes [Presence] in Blood by Automated count 0-0.5 [facility] Platelet mean volume Auto (B ld) [Entitic vol]Ordered By: Beti Ham on 07-31-2024 Platelet mean volume (Bld) [Entitic vol] Platelet mean volume [Entitic volume] in Blood by Automated count 6.3-10.7 [facility] Platelets Auto (Bld) [#/Vol] Ordered By: Beti Ham on 07-31-2024 Platelets (Bld) [#/Vol] Platelets [#/vol ume] in Blood by Automated count 150-450 [facility] Potassium [Moles/volume] in Serum or PlasmaOrdered By: Beti Ham on 07-31-2024 Potassium [Moles/Vol] Potassium [Moles/volume] in Serum or Plasma 3.5-5.1 [facility] Protein [Mass/volume] in Ser um or PlasmaOrdered By: Btei Ham on 07-31-2024 Protein [Mass/Vol] Protein [Mass/volume] in Serum or Plasma 6.4-8.9 [facility] RBC Auto (Bld) [#/Vol]Ordere d By: Beti Ham on 07-31-2024 RBC (Bld) [#/Vol] Erythrocytes [#/volume] in Blood by Automated count Low 3.60-5.00 [facility] RPR w/rfx to Quant TP Abson 07-31-2024 RPR, Rfx Quant RPR Non-Reactive Normal Non Reactive [facility] Comment on above: Result Comment: Perf ormed at: - [facility] [address] [id number] Music Autographer: Iain Siegel PhD, Phone: [phone] PERFORMED BY: [place] [address] PATHOLOGIST TIMEKEEPER SARAHI JUAREZ M.D. Performed By: #### T 4F, CK, CRP, TSH3, ESR, CBC, CMP #### [place] [address] [place] #### HBCAB, JUSTINA, HBSAG, ALDOLASE, HCV RX PCR, HBSAB, THYGLOB AB, CHROMATIN, C4, C3, CH50, RPR W RFX, TPO, KERRI #### [facility] , Serum or plasma albumin/glob ulin mass ratioOrdered By: Beti Ham on 07-31-2024 Albumin/Globulin [Mass ratio] Serum or plasma albumin/globulin mass ratio [facility] Serum or plasma anion gap de terminationOrdered By: Beti Ham on 07-31-2024 Anion gap [Moles/Vol] Serum or plasma anion gap determination 6.0-15.0 [facility] Sodium [Moles/volume] in Ser um or PlasmaOrdered By: Beti Ham on 07-31-2024 Sodium [Moles/Vol] Sodium [Moles/volume] in Serum or Plasma 136-145 [facility] Thyroid Peroxidase Antibodie son 07-31-2024 Thyroid Peroxidase Antibodies 12 [IU]/mL Normal 0-34 [facility] Comment on above: Result Comment: Perf ormed at: - [facility] [address] [id number] Music Autographer: Iain Siegel PhD, Phone: [phone] Performed By: #### T 4F, CK, CRP, TSH3, ESR, CBC, CMP #### [place] [address] [place] #### HBCAB, JUSTINA, HBSAG, ALDOLASE, HCV RX PCR, HBSAB, THYGLOB AB, CHROMATIN, C4, C3, CH50, RPR W RFX, TPO, KERRI #### [facility] , Thyroid Stimulating Hormoneo n 07-31-2024 TSH Qn 2.45 m[IU]/L Normal 0.45-5.33 [facility] Comment on above: Result Comment: PERF ORMED BY: [place] [address] PATHOLOGIST TIMEKEEPER SARAHI JUAREZ M.D. Performed By: #### T 4F, CK, CRP, TSH3, ESR, CBC, CMP #### [address] #### HBCAB, JUSTINA, HBSAG, ALDOLASE, HCV RX PCR, HBSAB, THYGLOB AB, CHROMATIN, C4, C3, CH50, RPR W RFX, TPO, KERRI #### [facility] , Thyrotropin [Units/volume] i n Serum or PlasmaOrdered By: Beti Ham on 07-31-2024 TSH Qn Thyrotropin [Units/volume] in Serum or Plasma 0.45-5.33 [facility] Thyroxine (T4) free [Mass/vo lume] in Serum or PlasmaOrdered By: Beti Ham on 07-31-2024 Free T4 [Mass/Vol] Thyroxine (T4) free [Mass/volume] in Serum or Plasma 0.61-1.12 [facility] Urea nitrogen [Mass/volume] in Serum or PlasmaOrdered By: Beti Ham on 07-31-2024 Urea nitrogen [Mass/Vol] Urea nitrogen [Mass/volume] in Serum or Plasma 7-25 [facility] WBC Auto (Bld) [#/Vol]Ordere d By: Beti Ham on 07-31-2024 WBC (Bld) [#/Vol] Leukocytes [#/volume] in Blood by Automated count 3.8-11.6 [facility] Office Visiton 05-21-2024 Follow-up visit [id number] Linda Nascimento 1950 F Date Provider Department Center 05/21/2024 [facility] Family History Problem Relation Age of Onset Lung cancer Mother Stroke Father Family Status - Relation Status Age at Mother Father Level of Service:29582 [place] OFFICE/OUTPATIENT ESTABLISHED LOW MDM 20 MIN Normal [facility] Herpes Simplex Virus By PCRo n 11-26-2024 HSV 1 Subtype by PCR Not detected Normal [facility] Comment on above: Order Comment: CALL doctor LB474 tel. [phone], FAX [phone] CALL doctor LB474 tel. [phone], FAX [phone] Result Comment: The specimen submitted for testing did not meet [facility] submission guidelines. Testing was performed on a specimen that did not meet validated specimen type requirements. Performance characteristics of this assay may be affected. Interpret results with caution. Please refer to the [employer] Test Directory for information on specimen acceptability: [email or web address] Performed By: #### A [id number] #### [facility] [address] [place] [id number] HSV 2 Subtype by PCR Not detected Normal [facility] Comment on above: Order Comment: CALL doctor LB474 tel. [phone], FAX [phone] CALL doctor LB474 tel. [phone], FAX [phone] Result Comment: The specimen submitted for testing did not meet [facility] submission guidelines. Testing was performed on a specimen that did not meet validated specimen type requirements. Performance characteristics of this assay may be affected. Interpret results with caution. Please refer to the [employer] Test Directory for information on specimen acceptability: [email or web address] INTERPRETIVE INFORMATION: HSV-1 and HSV-2 Subtype by PCR A negative result does not rule out the presence of PCR inhibitors in the patient specimen or test-specific nucleic acid in concentrations below the level of detection by this test. This test was developed and its performance characteristics determined by [facility]. It has not been cleared or approved by the [place] Food and Drug Administration. This test was performed in a CLIA certified laboratory and is intended for clinical purposes. Performed By: [facility] [address] [place] [address] District Representative: Rodrigo Milner MD, PhD CLIA Number: [id number] Performed By: #### A 0095 #### [facility] [address] [place] [address] Rejection Notificationon Reason see below Normal [facility] Comment on above: Order Comment: CALL doctor LB474 tel. [phone], FAX [phone] CALL doctor LB474 tel. [phone], FAX [phone] Result Comment: Unab le to perform testing; specimen quantity not sufficient. To perform testing the specimen will need to be recollected. QNS Performed By: #### R EJEC #### [facility] [address] [place] [address] Rejected Test [id number] [facility] Comment on above: Order Comment: CALL doctor LB474 tel. [phone], FAX [phone] CALL doctor LB474 tel. [phone], FAX [phone] Performed By: #### R EJEC #### [facility] [address] [place] [address] [facility] Miscellaneous test 1on 05-03-[id number] [facility] Comment on above: Order Comment: CALL doctor LB474 tel. [phone], FAX [phone] Performed By: #### 9 [id number] #### [facility] [address] [place] [address] Culture, Wound Aerobic, Anae robicon 05-03-2024 Culture, Wound Aerobic, Anaerobic ORDER#: [id number] ORDERED BY: MICHELLE QUINTERO SOURCE: Face Left eye ocular fluid COLLECTED: 05/03/24 07:26 ANTIBIOTICS AT MANJINDER.: RECEIVED : 05/03/24 07:39 CALL doctor LB474 tel. [phone], FAX [phone] Culture, Wound Aerobic, Anaerobic FINAL 05/08/24 08:22 Direct Exam: NO NEUTROPHILS SEEN Direct Exam: NO ORGANISMS SEEN Cult,Aerobe/Anaerobe : NO GROWTH 5 DAYS Performed at [facility] [address] [place] [address] ([phone] [facility] Comment on above: Performed By: #### I CWAN #### [facility] [address] [place] [address] Herpes Simplex Virus By PCRo n 05-03-2024 Herpes Simplex Virus Subtype Source eye Normal [facility] Comment on above: Order Comment: CALL doctor LB474 tel. [phone], FAX [phone] CALL doctor LB474 tel. [phone], FAX [phone] Result Comment: ocul ar fld Performed By: #### A 0095 #### [facility] [address] [place] [id number] CBC AUTO DIFFon 10-14-2022 BASO # 0.1 103/ul Normal 0.0-0.1 [facility] Comment on above: Performed By: #### C BC ####[facility] [address] [place], [place] [address]Dr. Slick Broderick Basophils/100 WBC (Bld) 0.6 % Normal 0.2-2.0 [facility] Comment on above: Performed By: #### C BC ####[facility] [address] [place], [place] [address]DrEmma Broderick EO # 0.4 103/ul Normal 0.0-0.7 [facility] Comment on above: Performed By: #### C BC ####[facility] [address] [place], [place] [address]DrEmma Broderick Eosinophils/100 WBC (Bld) 3.9 % Normal 0.9-7.0 [facility] Comment on above: Performed By: #### C BC ####[facility] [address] [place], [place] [address]DrEmma Broderick Erythrocyte distribution width (RBC) [Ratio] 13.2 % Normal 11.0-15.0 [facility] Comment on above: Performed By: #### C BC ####[facility] [address] [place], [place] [address]DrEmma Broderick Hematocrit (Bld) [Volume fraction] 32.4 % Critically low 36.0-48.0 [facility] Comment on above: Performed By: #### C BC ####[facility] [address] [place], [place] [address]DrEmma Broderick Hemoglobin (Bld) [Mass/Vol] 10.4 g/dL Critically low 12.0-16.0 [facility] Comment on above: Performed By: #### C BC ####[facility] [address] [place] [address]DrEmma Broderick IG # 0.19 10e3/ul Critically high 0.00-0.03 [facility] Comment on above: Performed By: #### C BC ####[facility] [address] [place] [address]DrEmma Broderick IG % 2.1 % Critically high 0.0-0.5 [facility] Comment on above: Performed By: #### C BC ####[facility] [address] [place], [place] [address]DrEmma Broderick LYMPH # 1.0 103/ul Critically low 1.2-3.8 [facility] Comment on above: Performed By: #### C BC ####[facility] [address] [place], [place] [address]DrEmma Broderick Lymphocytes/100 WBC (Bld) 11.4 % Critically low 20.5-60.0 [facility] Comment on above: Performed By: #### C BC ####[facility] [address] [place], [place] [address]DrEmma Broderick MANUAL DIFF REQ NO Normal [facility] Comment on above: Performed By: #### C BC ####[facility] [address] [place], [place] [address]DrEmma Broderick MCH (RBC) [Entitic mass] 32.0 pg Normal 26.7-34.0 [facility] Comment on above: Performed By: #### C BC ####[facility] Ynmibccdsh[address] [place], [place] [address]DrEmma Broderick MCHC (RBC) [Mass/Vol] 32.1 g/dL Normal 29.9-35.2 [facility] Comment on above: Performed By: #### C BC ####[facility] Kilgnermju[address] [place], [place] [address]DrEmma Broderick MCV (RBC) [Entitic vol] 99.7 fL Critically high 81.0-99 .0 [facility] Comment on above: Performed By: #### C BC ####[facility] Twxzqefyvf2564 [place] [address]DrEmma Slick Broderick MONO # 1.0 103/ul Critically high 0.3-0.8 [facility] Comment on above: Performed By: #### C BC ####[facility] Fluwbpufuo97[address] [place], [place] [address]DrEmma Rhodeswendie Davie Monocytes/100 WBC (Bld) 10.8 % Normal 1.7-12.0 [facility] Comment on above: Performed By: #### C BC ####[facility] Wombhzwail5[address] [place], [place] [address]DrEmma Rhodeswendie Broderick NEUT # 6.4 103/ul Normal 1.4-6.5 [facility] Comment on above: Performed By: #### C BC ####[facility] Fnckbqpfec34[address] [place], [place] [address]Dr. Meaganwendie Davie Neutrophils/100 WBC (Bld) 71.2 % Normal 43.0-75.0 [facility] Comment on above: Performed By: #### C BC ####[facility] Tqwiywzbyz[address] [place], [place] [address]DrEmma Rhodeswendie Davie Platelet mean volume (Bld) [Entitic vol] 9.8 fL Normal 9.5-13.5 [facility] Comment on above: Performed By: #### C BC ####[facility] Nitzfgoaml7820[address] [place], [place] [address]Dr. Meaganwendie Davie PLT 174 103/ul Normal 150-450 [facility] Comment on above: Performed By: #### C BC ####[facility] Anqrgjkoln87[address] [place], [place] [address]DrEmma Broderick RBC 3.25 106/ul Critically low 4.20-5.40 [facility] Comment on above: Performed By: #### C BC ####[facility] Duqfkpdukd89[address] [place], [place] [address]DrEmma Broderick WBC 8.9 103/ul Normal 4.0-11.0 [facility] Comment on above: Performed By: #### C BC ####[facility] Xngzwidwwk[address] [place] [address]Dr. Slick Broderick CRPon 10-14-2022 CRP 0.5 mg/dL Normal <=1.0 [facility] Comment on above: Performed By: #### C RP, BMP ####[facility] Mivbtdttwu033[address] [place] [address]Dr. Slick Broderick D-DIMERon 10-14-2022 D-DIMER 0.86 mg/L FEU Critically high <=0.59 [facility] Comment on above: Performed By: #### D DIM ####[facility] Tjonuinoij6609 [place] [address]Dr. Slick Broderick D-DIMER COMMENTS SEE BELOW Normal [facility] Comment on above: Result Comment: Incr [...] generalized hospitalization. Performed By: #### D DIM ####[facility] Wcsbbxgzga4689 [place] [address]Dr. Slick Broderick PROF CHEM 8 (BAS METB)on Anion gap [Moles/Vol] 10.1 mmol/L Normal [facility] Comment on above: Performed By: #### C RP, BMP ####[facility] Gvsodmhktg7292 [place] [address]Dr. Slick Broderick Calcium [Mass/Vol] 9.3 mg/dL Normal 8.5-10.1 [facility] Comment on above: Performed By: #### C RP, BMP ####[facility] Xtsbhklfzh2923 [place] [address]Dr. Slick Broderick Chloride [Moles/Vol] 98 mmol/L Normal 98-107 [facility] Comment on above: Performed By: #### C RP, BMP ####[facility] Mndxxegijs9[address] [place], [place] [address]Dr. Slick Broderick CO2 [Moles/Vol] 30.3 mmol/L Normal 21.0-32.0 [facility] Comment on above: Performed By: #### C RP, BMP ####[facility] Coowwdxugk7007[address] [place], [place] [address]Dr. Slick Broderick Creatinine [Mass/Vol] 2.15 mg/dL Critically high 0.55-1.02 [facility] Comment on above: Performed By: #### C RP, BMP ####[facility] Aadokhmuem89[address] [place], [place] [address]Dr. Slick Broderick EGFR-AF IRAQI 27 mL/min/1.73m2 Critically low >=60 [facility] Comment on above: Performed By: #### C RP, BMP ####[facility] Gijjptejzi6[address] [place], [place] [address]Dr. Slick Broderick EGFR-NON AF IRAQI 22 mL/min/1.73m2 Critically low >=60 [facility] Comment on above: Performed By: #### C RP, BMP ####[facility] Jwagadjxma7637[address] [place], [place] [address]Dr. Slick Broderick Glucose [Mass/Vol] 116 mg/dL Critically high 74-106 [facility] Comment on above: Performed By: #### C RP, BMP ####[facility] Gsyskamfpt2[address] [place], [place] [address]Dr. Slick Broderick Potassium [Moles/Vol] 4.4 mmol/L Normal 3.5-5.1 [facility] Comment on above: Performed By: #### C RP, BMP ####[facility] Jmuamiimek506[address] [place], [place] [address]Dr. Slick Broderick Sodium [Moles/Vol] 134 mmol/L Critically low 136-145 [facility] Comment on above: Performed By: #### C RP, BMP ####[facility] Vjlbzshtzt9696 [place] [address]Dr. Slick Broderick Urea nitrogen [Mass/Vol] 33.0 mg/dL Critically high 7.0-18.0 [facility] Comment on above: Performed By: #### C RP, BMP ####[facility] Vrfwlmbgfa2048 [place] [address]Dr. Slick Broderick Urea nitrogen/Creatinine [Mass ratio] 15.3 mg/mg Normal [facility] Comment on above: Performed By: #### C RP, BMP ####[facility] Iuczlhxukf2951 [place] [address]Dr. Slick Broderick US JENNY DOP LEG LTon 10-15-19 23 US JENNY DOP LEG LT Normal [facility] XR FEMUR LTon 10-14-2022 XR FEMUR LT Normal [facility] ECHOCARDIO M/2D COMPLETEon 0 09-14-2022 ECHOCARDIO M/2D COMPLETE Normal [facility] PRBC LEUKOREDUCEDon 06-09-20 22 PRBC LEUKOREDUCED Normal [facility] Comment on above: Performed By: #### P RBC ####[facility] Xqymoblswf5950[address] [place], [place] [address]Dr. Slick Broderick BNPon 04-23-2022 Natriuretic peptide B (Bld) [Mass/Vol] 04058.0 pg/mL Critically high <=900.0 [facility] Comment on above: Performed By: #### C MP, CMADM, BNP ####[facility] Kugijtciub4567 [place] [address]Dr. Slick Broderick CARDIAC REYMUNDO ADMITon 022 CK [Catalytic activity/Vol] 121 U/L Normal 26-192 [facility] Comment on above: Performed By: #### C MP, CMADM, BNP ####[facility] Vwhwurclhj3339 [place] [address]Dr. Slick Broderick CK.MB [Mass/Vol] 5.67 ng/mL Critically high <=3.60 [facility] Comment on above: Performed By: #### C MP, CMADM, BNP ####[facility] Yskzezyzkh02[address] [place], [place] [address]Dr. Slick Broderick HSTROP 3667.9 pg/mL Critically high 4.0-51.3 [facility] Comment on above: Result Comment: CUT- OFF POINTS HAVE BEEN ESTABLISHED BASED ON THE FOURTH UNIVERSAL DEFINITIONS OF MYOCARDIALINFARCTION. THE UPPER REFERENCE LIMIT (URL) OF TROPONIN, DEFINED THE 99TH PERCENTILE OFcTnI DISTRIBUTION IN A REFERENCE POPULATION, HAS BEEN CONFIRMED THE DECISION THRESHOLDFOR VA DIAGNOSIS. Performed By: #### C MP, CMADM, BNP ####[facility] Efqzreeape1203 [place] [address]Dr. Slick Broderick NEHEMIAH 225 ng/mL Critically high 9-82 [facility] Comment on above: Performed By: #### C MP, CMADM, BNP ####[facility] Xxrkrtpmsw5152 [place] [address]Dr. Slick Broderick CBC AUTO DIFFon 04-23-2022 BASO # 0.0 103/ul Normal 0.0-0.1 [facility] Comment on above: Performed By: #### C BC ####[facility] Kcikgbfnfy9986 [place] [address]Dr. Slick Broderick Basophils/100 WBC (Bld) 0.3 % Normal 0.2-2.0 [facility] Comment on above: Performed By: #### C BC ####[facility] Cjqshzohcz[address] [place], [place] [address]Dr. Slick Broderick EO # 0.0 103/ul Normal 0.0-0.7 [facility] Comment on above: Performed By: #### C BC ####[facility] Dulhpzvefi4072 [place] [address]Dr. Slick Broderick Eosinophils/100 WBC (Bld) 0.3 % Critically low 0.9-7.0 [facility] Comment on above: Performed By: #### C BC ####[facility] Mtmgpiozmg50[address] [place], [place] [address]Dr. Slick Broderick Erythrocyte distribution width (RBC) [Ratio] 14.0 % Normal 11.0-15.0 [facility] Comment on above: Performed By: #### C BC ####[facility] Axpcbhuobh2900 [place] [address]Dr. Slick Broderick Hematocrit (Bld) [Volume fraction] 21.9 % Critically low 36.0-48.0 [facility] Comment on above: Performed By: #### C BC ####[facility] Digvypeict1114 [place] [address]Dr. Slick Broderick Hemoglobin (Bld) [Mass/Vol] 7.1 g/dL Critically low 12.0-16.0 [facility] Comment on above: Performed By: #### C BC ####[facility] Hiopogqzxk0991 [place] [address]Dr. Slick Broderick IG # 0.04 10e3/ul Critically high 0.00-0.03 [facility] Comment on above: Performed By: #### C BC ####[facility] Iixmlkocfn8638 [place] [address]Dr. Slick Broderick IG % 0.4 % Normal 0.0-0.5 [facility] Comment on above: Performed By: #### C BC ####[facility] Gpczmduwif3505 [place] [address]Dr. Slick Broderick LYMPH # 0.8 103/ul Critically low 1.2-3.8 [facility] Comment on above: Performed By: #### C BC ####[facility] Pjqdftdjno7987 [place] [address]Dr. Slick Broderick Lymphocytes/100 WBC (Bld) 7.7 % Critically low 20.5-60.0 [facility] Comment on above: Performed By: #### C BC ####[facility] Zeykkxhwhe6095 [place] [address]Dr. Slick Broderick MANUAL DIFF REQ NO Normal [facility] Comment on above: Performed By: #### C BC ####[facility] Jeafytjumw1428 [place] [address]Dr. Meaganwendie Broderick MCH (RBC) [Entitic mass] 29.3 pg Normal 26.7-34.0 [facility] Comment on above: Performed By: #### C BC ####[facility] Gyhsqwlpnw8238 [place] [address]Dr. Slick Broderick MCHC (RBC) [Mass/Vol] 32.4 g/dL Normal 29.9-35.2 [facility] Comment on above: Performed By: #### C BC ####[facility] Ooawxsevjj[address] [place], [place] [address]Dr. Slick Broderick MCV (RBC) [Entitic vol] 90.5 fL Normal 81.0-99.0 [facility] Comment on above: Performed By: #### C BC ####[facility] Ftcandwmrw30[address] [place], [place] [address]Dr. Slick Davie MONO # 1.0 103/ul Critically high 0.3-0.8 [facility] Comment on above: Performed By: #### C BC ####[facility] Bzpvpnotaa16[address] [place], [place] [address]Dr. Slick Broderick Monocytes/100 WBC (Bld) 9.6 % Normal 1.7-12.0 [facility] Comment on above: Performed By: #### C BC ####[facility] Pjmvnqjtfv9625[address] [place], [place] [address]Dr. Meaganwendie Davie NEUT # 8.6 103/ul Critically high 1.4-6.5 [facility] Comment on above: Performed By: #### C BC ####[facility] Rpjudayvlo5066[address] [place], [place] [address]Dr. Slick Broderick Neutrophils/100 WBC (Bld) 81.7 % Critically high 43.0-75.0 [facility] Comment on above: Performed By: #### C BC ####[facility] Hngyrchbbv5[address] [place], [place] [address]Dr. Slick Broderick Platelet mean volume (Bld) [Entitic vol] 10.0 fL Normal 9.5-13.5 [facility] Comment on above: Performed By: #### C BC ####[facility] Ghvfzpoxrd[address] [place], [place] [id number]. Slick Broderick PLT 195 103/ul Normal 150-450 [facility] Comment on above: Performed By: #### C BC ####[facility] Sbvyujnpvs1139 [place], [place] [address]Jq. Slick Broderick RBC 2.42 106/ul Critically low 4.20-5.40 [facility] Comment on above: Performed By: #### C BC ####[facility] Jcwvaribsx8763 [place], [place] [address]Dp. Slick Broderick WBC 10.5 103/ul Normal 4.0-11.0 [facility] Comment on above: Performed By: #### C BC ####[facility] Yhqxgssdsk5577 [place], [place] [address]Ps. S[address] Bro[address] CT HEAD WO CONon 04-23-2022 CT HEAD WO CON Normal [facility] CULTURE BLOODon 04-23-2022 Microscopic examination of blood, culture Culture Observations: NO GROWTH AT 5 DAYS. Normal [facility] Comment on above: Performed By: #### B LDCX2 ####[facility] Mjmuixmlzr4041 [place] [id number]. Slick Broderick Microscopic examination of blood, culture Culture Observations: NO GROWTH AT 5 DAYS. Normal [facility] Comment on above: Performed By: #### B LDCX1 ####[facility] Wnvpnrnljf9826 [place] [address]Dr. Slick Broderick Covid-19 PCR (CVDTB)on 04-12 SARS-CoV-2 (COVID-19) RNA DONNIE+probe Ql (Unsp spec) Not detected Normal NOT DETECTED [facility] Comment on above: Result [...] for this test is supported by the [place] of [employer] and Human Service's declaration that [...] be used). Performed By: #### C VDTBH ####[facility] Kotkwxjzdk9794 [place] [address]Dr. Slick Broderick LACTATE/LACTIC ACIDon 2021 Lactate [Moles/Vol] 1.2 mmol/L Normal 0.4-1.[address] [facility] Comment on above: Performed By: #### L ACT ####[facility] Lkfzyqbsns8038 [place] [address]Dr. Slick Broderick PROF 14(COMP METB)on 022 Albumin [Mass/Vol] 2.9 g/dL Critically low 3.4-5.0 [facility] Comment on above: Performed By: #### C MP, CMADM, BNP ####[facility] Mxifvmflmq6942 [place] [address]Dr. Slick Broderick Albumin/Globulin [Mass ratio] 0.9 {ratio} Normal [facility] Comment on above: Performed By: #### C MP, CMADM, BNP ####[facility] Zvyzzufvzd9263 [place] [address]Dr. Slick Broderick ALP [Catalytic activity/Vol] 88 U/L Normal 46-116 [facility] Comment on above: Performed By: #### C MP, CMADM, BNP ####[facility] Eqokwozsyb1237 [place] [address]Dr. Slick Broderick ALT [Catalytic activity/Vol] 22 U/L Normal 14-59 [facility] Comment on above: Performed By: #### C MP, CMADM, BNP ####[facility] Ylyrdbrkyu5605 [place] [address]Dr. Slick Broderick Anion gap [Moles/Vol] 14.0 mmol/L Normal [facility] Comment on above: Performed By: #### C MP, CMADM, BNP ####[facility] Gnypuegqxr2291 [place] [address]Dr. Slick Broderick AST [Catalytic activity/Vol] 26 U/L Normal 15-37 [facility] Comment on above: Performed By: #### C MP, CMADM, BNP ####[facility] Poslmvuzvb0678 [place] [address]Dr. Slick Broderick Bilirubin [Mass/Vol] 0.5 mg/dL Normal 0.2-1.0 [facility] Comment on above: Performed By: #### C MP, CMADM, BNP ####[facility] Fbglbjndny9508 [place] [address]Dr. Slick Broderick Calcium [Mass/Vol] 9.7 mg/dL Normal 8.5-10.1 [facility] Comment on above: Performed By: #### C MP, CMADM, BNP ####[facility] Abvgnwlqbo2840 [place] [address]Dr. Slick Broderick Chloride [Moles/Vol] 105 mmol/L Normal 98-107 [facility] Comment on above: Performed By: #### C MP, CMADM, BNP ####[facility] Hrbdexkrfg4777 [place] [address]Dr. Slick Broderick CO2 [Moles/Vol] 27.0 mmol/L Normal 21.0-32.0 [facility] Comment on above: Performed By: #### C MP, CMADM, BNP ####[facility] Uzgkrfldhw3142 [place] [address]Dr. Slick Broderick Creatinine [Mass/Vol] 1.57 mg/dL Critically high 0.55-1.02 [facility] Comment on above: Performed By: #### C MP, CMADM, BNP ####[facility] Xkzgcfrnaz1904 [place] [address]Dr. Slick Broderick EGFR-AF IRAQI 39 mL/min/1.73m2 Critically low >=60 [facility] Comment on above: Performed By: #### C MP, CMADM, BNP ####[facility] Rywiwzqmod5691 [place] [address]Dr. Slick Broderick EGFR-NON AF IRAQI 32 mL/min/1.73m2 Critically low >=60 [facility] Comment on above: Performed By: #### C MP, CMADM, BNP ####[facility] Wtwldekhfa0635 [place] [address]Dr. Slick Broderick Globulin (S) [Mass/Vol] 3.2 g/dL Normal [facility] Comment on above: Performed By: #### C MP, CMADM, BNP ####[facility] Drfoevcuij9907 [place] [address]Dr. Slick Broderick Glucose [Mass/Vol] 128 mg/dL Critically high 74-106 [facility] Comment on above: Performed By: #### C MP, CMADM, BNP ####[facility] Bgolwmjijy8184 [place] [address]Dr. Slick Broderick Potassium [Moles/Vol] 4.0 mmol/L Normal 3.5-5.1 [facility] Comment on above: Performed By: #### C MP, CMADM, BNP ####[facility] Nlnzaxfjiu008[address] [place], [place] [address]Dr. Slick Broderick Protein [Mass/Vol] 6.1 g/dL Critically low 6.4-8.2 [facility] Comment on above: Performed By: #### C MP, CMADM, BNP ####[facility] Tosbvfapco26[address] [place], [place] [address]Dr. Slick Broderick Sodium [Moles/Vol] 142 mmol/L Normal 136-145 [facility] Comment on above: Performed By: #### C MP, CMADM, BNP ####[facility] Egzjlddrgs8730 [place] [address]Dr. Slick Broderick Urea nitrogen [Mass/Vol] 34.0 mg/dL Critically high 7.0-18.0 [facility] Comment on above: Performed By: #### C MP, CMADM, BNP ####[facility] Htfuhtqtan7735 [place] [address]Dr. Slick Broderick Urea nitrogen/Creatinine [Mass ratio] 21.7 mg/mg Normal [facility] Comment on above: Performed By: #### C MP, CMADM, BNP ####[facility] Sqpijmtfjr2359 [place] [address]Dr. Slick Broderick PROTIMEon 04-23-2022 INR Coag (PPP) [Relative time] 1.10 {INR} Normal [facility] Comment on above: Performed By: #### P T, PTT ####[facility] Clznjftcop4494[address] [place], [place] [address]Dr. Slick Broderick INR GUIDELINES SEE BELOW Normal [facility] Comment on above: Result Comment: EDMUND RED INR: 2.0 - 3.0 CONDITIONS NOT LISTED BELOW 2.5 - 3.5 FOR PROSTHETIC HEART VALVE REPLACEMENT 2.5 - 3.5 RECURRENT THROMBOSIS Performed By: #### P T, PTT ####[facility] Ughllisjmd66[address] [place], [place] [address]Dr. Slick Broderick PT Coag (PPP) [Time] 11.8 s Critically high 9.0-11.6 [facility] Comment on above: Performed By: #### P T, PTT ####[facility] Rtekafpxjz8174[address] [place], [place] [address]Dr. Slick Broderick PTTon 04-23-2022 aPTT Coag (Bld) [Time] 27.7 s Normal 22.3-36.2 [facility] Comment on above: Performed By: #### P T, PTT ####[facility] Pdfnhkjuea9574[address] [place], [place] [address]Dr. Slick Broderick TYPE AND SCREENon 04-23-2022 TYPE AND SCREEN Negative Normal [facility] Comment on above: Performed By: #### T NS ####[facility] Rseefwjron9537[address] [place], [place] [address]Dr. Slick Broderick XR CHEST 1 Von 04-23-2022 XR CHEST 1 V Normal [facility] CBC AUTO DIFFon 04-22-2022 BASO # 0.0 103/ul Normal 0.0-0.1 [facility] Comment on above: Performed By: #### C BC ####[facility] Pggvwepvtj17[address] [place], [place] [address]Dr. Slick Broderick Basophils/100 WBC (Bld) 0.3 % Normal 0.2-2.0 [facility] Comment on above: Performed By: #### C BC ####[facility] Yadovjqeto5578 [place] [address]Dr. Slick Broderick EO # 0.1 103/ul Normal 0.0-0.7 [facility] Comment on above: Performed By: #### C BC ####[facility] Xyrtgbepjk7687 [place] [address]Dr. Slick Broderick Eosinophils/100 WBC (Bld) 1.4 % Normal 0.9-7.0 [facility] Comment on above: Performed By: #### C BC ####[facility] Csxzxsibiv6715 [place] [address]Dr. Slick Broderick Erythrocyte distribution width (RBC) [Ratio] 13.8 % Normal 11.0-15.0 [facility] Comment on above: Performed By: #### C BC ####[facility] Ucippxklct7523[address] [place], [place] [address]Dr. Slick Broderick Hematocrit (Bld) [Volume fraction] 27.4 % Critically low 36.0-48.0 [facility] Comment on above: Performed By: #### C BC ####[facility] Gypeytswfo99[address] [place], [place] [address]Dr. Slick Broderick Hemoglobin (Bld) [Mass/Vol] 8.8 g/dL Critically low 12.0-16.0 [facility] Comment on above: Performed By: #### C BC ####[facility] Ayjagnkpcp6401 [place] [address]Dr. Slick Broderick IG # 0.04 10e3/ul Critically high 0.00-0.03 [facility] Comment on above: Performed By: #### C BC ####[facility] Cranycqaqr[address] [place], [place] [address]Dr. Slick Broderick IG % 0.6 % Critically high 0.0-0.5 [facility] Comment on above: Performed By: #### C BC ####[facility] Kjxmuzmead3[address] [place], [place] [address]DrEmma Broderick LYMPH # 0.7 103/ul Critically low 1.2-3.8 [facility] Comment on above: Performed By: #### C BC ####[facility] Dqbfmtwjfh8172 [place] [address]Dr. Slick Davie Lymphocytes/100 WBC (Bld) 9.8 % Critically low 20.5-60.0 [facility] Comment on above: Performed By: #### C BC ####[facility] Yjfbwgndmf7354 [place] [address]Dr. Slick Broderick MANUAL DIFF REQ NO Normal [facility] Comment on above: Performed By: #### C BC ####[facility] Kxkrgmeoja9022 [place] [id number]. Slick Broderick MCH (RBC) [Entitic mass] 28.9 pg Normal 26.7-34.0 [facility] Comment on above: Performed By: #### C BC ####[facility] Dibvcfkaix[address] [place], [place] [address]Dr. Slick Broderick MCHC (RBC) [Mass/Vol] 32.1 g/dL Normal 29.9-35.2 [facility] Comment on above: Performed By: #### C BC ####[facility] [address]gocqjaykt[address] [place], [place] [id number]. Slick Broderick MCV (RBC) [Entitic vol] 90.1 fL Normal 81.0-99.0 [facility] Comment on above: Performed By: #### C BC ####[facility] Lnbsqdupsj[address] [place] [address]Dr. Slick Broderick MONO # 0.6 103/ul Normal 0.3-0.8 [facility] Comment on above: Performed By: #### C BC ####[facility] Itwkwpfgiu7[address] [place], [place] [address]Dr. Slick Broderick Monocytes/100 WBC (Bld) 7.6 % Normal 1.7-12.0 [facility] Comment on above: Performed By: #### C BC ####[facility] Yjraqlqeeh[address] [place], [place] [address]DrEmma Broderick NEUT # 5.9 103/ul Normal 1.4-6.5 [facility] Comment on above: Performed By: #### C BC ####[facility] Mwaawoogka[address] [place] [address]Dr. Slick Broderick Neutrophils/100 WBC (Bld) 80.3 % Critically high 43.0-75.0 [facility] Comment on above: Performed By: #### C BC ####[facility] Dubjaxqcev58[address] [place] [address]Dr. Slick Broderick Platelet mean volume (Bld) [Entitic vol] 9.5 fL Normal 9.5-13.5 [facility] Comment on above: Performed By: #### C BC ####[facility] Axirtqzhth022[address] [place] [address]Dr. Slick Broderick PLT 204 103/ul Normal 150-450 [facility] Comment on above: Performed By: #### C BC ####[facility] Wyfubcnyjc9932 [place] [address]Dr. Slick Broderick RBC 3.04 106/ul Critically low 4.20-5.40 [facility] Comment on above: Performed By: #### C BC ####[facility] Evetyzkgiw8511 [place] [address]Dr. Slick Broderick WBC 7.3 103/ul Normal 4.0-11.0 [facility] Comment on above: Performed By: #### C BC ####[facility] Oczvmbnimj9716 [place] [address]Dr. Slick Broderick BASO # 0.0 103/ul Normal 0.0-0.1 [facility] Comment on above: Performed By: #### C BC ####[facility] Hdatqleopj3764 [place] [address]Dr. Slick Broderick Basophils/100 WBC (Bld) 0.5 % Normal 0.2-2.0 [facility] Comment on above: Performed By: #### C BC ####[facility] Whhvttklop2285 [place] [address]Dr. Slick Broderick EO # 0.6 103/ul Normal 0.0-0.7 [facility] Comment on above: Performed By: #### C BC ####[facility] Tarnatjbnr0511 [place] [address]Dr. Slick Broderick Eosinophils/100 WBC (Bld) 10.4 % Critically high 0.9-7.0 [facility] Comment on above: Performed By: #### C BC ####[facility] Glpoqofzwg9249 [place] [address]Dr. Slick Broderick Erythrocyte distribution width (RBC) [Ratio] 14.0 % Normal 11.0-15.0 [facility] Comment on above: Performed By: #### C BC ####[facility] Eotxjwoian8943 [place] [address]Dr. Slick Broderick Hematocrit (Bld) [Volume fraction] 26.5 % Critically low 36.0-48.0 [facility] Comment on above: Performed By: #### C BC ####[facility] Xmqvmekfcq074[address] [place], [place] [address]Dr. Slick Broderick Hemoglobin (Bld) [Mass/Vol] 8.4 g/dL Critically low 12.0-16.0 [facility] Comment on above: Performed By: #### C BC ####[facility] Jfgxwfwhrv70[address] [place], [place] [address]Dr. Slick Broderick IG # 0.02 10e3/ul Normal 0.00-0.03 [facility] Comment on above: Performed By: #### C BC ####[facility] Dxaxeuyvyg7[address] [place], [place] [address]Dr. Slick Broderick IG % 0.4 % Normal 0.0-0.5 [facility] Comment on above: Performed By: #### C BC ####[facility] Befnueqxrn4801[address] [place], [place] [address]Dr. Slick Broderick LYMPH # 0.9 103/ul Critically low 1.2-3.8 [facility] Comment on above: Performed By: #### C BC ####[facility] Eseevkujrz168[address] [place], [place] [address]Dr. Slick Broderick Lymphocytes/100 WBC (Bld) 15.6 % Critically low 20.5-60.0 [facility] Comment on above: Performed By: #### C BC ####[facility] Gtcnbjkdpz2125 [place] [address]Dr. Slick Broderick MANUAL DIFF REQ NO Normal [facility] Comment on above: Performed By: #### C BC ####[facility] Yyogqzmbdp3020 [place] [address]Dr. Slick Broderick MCH (RBC) [Entitic mass] 29.2 pg Normal 26.7-34.0 [facility] Comment on above: Performed By: #### C BC ####[facility] Ggqbiclcku9105 [place] [address]Dr. Slick Broderick MCHC (RBC) [Mass/Vol] 31.7 g/dL Normal 29.9-35.2 [facility] Comment on above: Performed By: #### C BC ####[facility] Oorpypntlv0707[address] [place], [place] [address]Dr. Slick Broderick MCV (RBC) [Entitic vol] 92.0 fL Normal 81.0-99.0 [facility] Comment on above: Performed By: #### C BC ####[facility] Lvqwydxwbm74[address] [place], [place] [address]Dr. Slick Broderick MONO # 0.6 103/ul Normal 0.3-0.8 [facility] Comment on above: Performed By: #### C BC ####[facility] Tfkddikzvm4478 [place] [address]Dr. Slick Broderick Monocytes/100 WBC (Bld) 10.1 % Normal 1.7-12.0 [facility] Comment on above: Performed By: #### C BC ####[facility] Oeoathfjqm55[address] [place], [place] [address]DrEmma Broderick NEUT # 3.5 103/ul Normal 1.4-6.5 [facility] Comment on above: Performed By: #### C BC ####[facility] Pgxuupnxhh55[address] [place], [place] [address]Dr. Slick Broderick Neutrophils/100 WBC (Bld) 63.0 % Normal 43.0-75.0 [facility] Comment on above: Performed By: #### C BC ####[facility] Xfynpvqwcp6104 [place] [address]Dr. Slick Broderick Platelet mean volume (Bld) [Entitic vol] 10.0 fL Normal 9.5-13.5 [facility] Comment on above: Performed By: #### C BC ####[facility] Polkkyvrpx1016 [place] [address]Dr. Slick Broderick PLT 198 103/ul Normal 150-450 [facility] Comment on above: Performed By: #### C BC ####[facility] Ezhwxigcbq8702 [place] [address]Dr. Slick Broderick RBC 2.88 106/ul Critically low 4.20-5.40 [facility] Comment on above: Performed By: #### C BC ####[facility] Sdqgkjnube2204 [place] [address]Dr. Slick Broderick WBC 5.6 103/ul Normal 4.0-11.0 [facility] Comment on above: Performed By: #### C BC ####[facility] Hzdrjyszkk7240 [place] [address]Dr. S[address] Bro[address] CT HEAD WO CONon 04-22-2022 CT HEAD WO CON Normal [facility] POINT OF CARE GLUCOSEon 04-12 Glucose [Mass/Vol] 110 mg/dL Critically high 74-106 T [facility] Comment on above: Performed By: #### P OCGLUC ####[facility] Oxelctavtr9370 [place] [address]DrEmma Broderick PROF 14(COMP METB)on 022 Albumin [Mass/Vol] 3.0 g/dL Critically low 3.4-5.0 [facility] Comment on above: Performed By: #### C MP ####[facility] Hbenveniyu3180 [place] [address]Dr. Slick Broderick Albumin/Globulin [Mass ratio] 0.9 {ratio} Normal [facility] Comment on above: Performed By: #### C MP ####[facility] Lcylozgiey8181 [place] [address]Dr. Slick Broderick ALP [Catalytic activity/Vol] 93 U/L Normal 46-116 [facility] Comment on above: Performed By: #### C MP ####[facility] Qzkmqlryec3832 [place] [address]Dr. Slick Broderick ALT [Catalytic activity/Vol] 22 U/L Normal 14-59 [facility] Comment on above: Performed By: #### C MP ####[facility] Uemiajuemn5858 [place] [address]Dr. Slick Broderick Anion gap [Moles/Vol] 8.9 mmol/L Normal [facility] Comment on above: Performed By: #### C MP ####[facility] Nmgilaazqr8219 [place] [address]Dr. Slick Broderick AST [Catalytic activity/Vol] 18 U/L Normal 15-37 [facility] Comment on above: Performed By: #### C MP ####[facility] Ivnhjuckfs3998 [place] [address]Dr. Slick Broderick Bilirubin [Mass/Vol] 0.3 mg/dL Normal 0.2-1.0 [facility] Comment on above: Performed By: #### C MP ####[facility] Bwqhgcjaph0515 [place] [address]Dr. Slick Broderick Calcium [Mass/Vol] 9.6 mg/dL Normal 8.5-10.1 [facility] Comment on above: Performed By: #### C MP ####[facility] Gtenelianj7536 [place] [address]Dr. Slick Broderick Chloride [Moles/Vol] 104 mmol/L Normal 98-107 [facility] Comment on above: Performed By: #### C MP ####[facility] Dnfgwcabhk8340 [place] [address]Dr. Slick Broderick CO2 [Moles/Vol] 30.8 mmol/L Normal 21.0-32.0 [facility] Comment on above: Performed By: #### C MP ####[facility] Mscmzbkalg2900 [place] [address]Dr. Slick Broderick Creatinine [Mass/Vol] 1.73 mg/dL Critically high 0.55-1.02 [facility] Comment on above: Performed By: #### C MP ####[facility] Tddlpwpnyj1620 [place] [address]Dr. Slick Broderick EGFR-AF IRAQI 35 mL/min/1.73m2 Critically low >=60 [facility] Comment on above: Performed By: #### C MP ####[facility] Ztehsxbryn9912 [place] [address]Dr. Slick Broderick EGFR-NON AF IRAQI 29 mL/min/1.73m2 Critically low >=60 [facility] Comment on above: Performed By: #### C MP ####[facility] Zgiaogxwxe2205 [place] [address]Dr. Slick Broderick Globulin (S) [Mass/Vol] 3.4 g/dL Normal [facility] Comment on above: Performed By: #### C MP ####[facility] Utkvslutew022[address] [place], [place] [address]Dr. Slick Broderick Glucose [Mass/Vol] 94 mg/dL Normal 74-106 [facility] Comment on above: Performed By: #### C MP ####[facility] Xqlueokiwz0696 [place] [address]Dr. Slick Broderick Potassium [Moles/Vol] 4.7 mmol/L Normal 3.5-5.1 [facility] Comment on above: Performed By: #### C MP ####[facility] Fsrninjzhh7596 [place] [address]Dr. Slick Broderick Protein [Mass/Vol] 6.4 g/dL Normal 6.4-8.2 [facility] Comment on above: Performed By: #### C MP ####[facility] Lbxjfpjymx462[address] [place], [place] [address]Dr. Slick Broderick Sodium [Moles/Vol] 139 mmol/L Normal 136-145 [facility] Comment on above: Performed By: #### C MP ####[facility] Hzmzkugind0915 [place] [address]Dr. Slick Broderick Urea nitrogen [Mass/Vol] 46.0 mg/dL Critically high 7.0-18.0 [facility] Comment on above: Performed By: #### C MP ####[facility] Sltxxeznxk8027[address] [place], [place] [address]Dr. Slick Broderick Urea nitrogen/Creatinine [Mass ratio] 26.6 mg/mg Normal [facility] Comment on above: Performed By: #### C MP ####[facility] Fsjcabklqj9624[address] [place], [place] [address]Dr. Slick Broderick PROF CHEM 8 (BAS METB)on Anion gap [Moles/Vol] 8.6 mmol/L Normal [facility] Comment on above: Performed By: #### B MP ####[facility] Fuptqyafcc1350[address] [place], [place] [address]Dr. Slick Broderick Calcium [Mass/Vol] 9.9 mg/dL Normal 8.5-10.1 [facility] Comment on above: Performed By: #### B MP ####[facility] Uepmfvzcqf349[address] [place], [place] [address]Dr. Slick Broderick Chloride [Moles/Vol] 103 mmol/L Normal 98-107 [facility] Comment on above: Performed By: #### B MP ####[facility] Ajerarzlka964[address] [place], [place] [address]Dr. Slick Broderick CO2 [Moles/Vol] 29.5 mmol/L Normal 21.0-32.0 [facility] Comment on above: Performed By: #### B MP ####[facility] Zapzuzrdvl4822[address] [place], [place] [address]Dr. Slick Broderick Creatinine [Mass/Vol] 1.62 mg/dL Critically high 0.55-1.02 [facility] Comment on above: Performed By: #### B MP ####[facility] Nicygvswtg4249[address] [place], [place] [address]Dr. Slick Broderick EGFR-AF IRAQI 38 mL/min/1.73m2 Critically low >=60 [facility] Comment on above: Performed By: #### B MP ####[facility] Vpmafrgacw6383 [place] [address]Dr. Slick Broderick EGFR-NON AF IRAQI 31 mL/min/1.73m2 Critically low >=60 [facility] Comment on above: Performed By: #### B MP ####[facility] Djhsvomokl8997 [place] [address]Dr. Slick Broderick Glucose [Mass/Vol] 125 mg/dL Critically high 74-106 T [facility] Comment on above: Performed By: #### B MP ####[facility] Jjhbkvxvdb028[address] [place], [place] [address]Dr. Slick Broderick Potassium [Moles/Vol] 4.1 mmol/L Normal 3.5-5.1 [facility] Comment on above: Performed By: #### B MP ####[facility] Gesozqdjmh4316[address] [place], [place] [address]Dr. Slick Broderick Sodium [Moles/Vol] 137 mmol/L Normal 136-145 [facility] Comment on above: Performed By: #### B MP ####[facility] Ambjuddzlc4999[address] [place], [place] [address]Dr. Slick Broderick Urea nitrogen [Mass/Vol] 41.0 mg/dL Critically high 7.0-18.0 [facility] Comment on above: Performed By: #### B MP ####[facility] Qazlbfcqby7985[address] [place], [place] [address]Dr. Slick Broderick Urea nitrogen/Creatinine [Mass ratio] 25.3 mg/mg Normal [facility] Comment on above: Performed By: #### B MP ####[facility] Qtfzrmtzly417[address] [place], [place] [address]Dr. Slick Broderick PROTIMEon 04-22-2022 INR Coag (PPP) [Relative time] 1.08 {INR} Normal [facility] Comment on above: Performed By: #### P T, PTT ####[facility] Cgnoaxydsc3126[address] [place], [place] [address]Dr. Slick Broderick INR GUIDELINES SEE BELOW Normal [facility] Comment on above: Result Comment: EDMUND RED INR: 2.0 - 3.0 CONDITIONS NOT LISTED BELOW 2.5 - 3.5 FOR PROSTHETIC HEART VALVE REPLACEMENT 2.5 - 3.5 RECURRENT THROMBOSIS Performed By: #### P T, PTT ####[facility] Kjrarspsww137[address] [place], [place] [address]Dr. Slick Broderick PT Coag (PPP) [Time] 11.6 s Normal 9.0-11.6 [facility] Comment on above: Performed By: #### P T, PTT ####[facility] Dslxmmjpep6595[address] [place], [place] [address]Dr. Slick Broderick PTTon 04-22-2022 aPTT Coag (Bld) [Time] 30.7 s Normal 22.3-36.2 [facility] Comment on above: Performed By: #### P T, PTT ####[facility] Zgglbutspe367[address] [place], [place] [address]Dr. Slick Broderick XR TIB_FIB RT 2Von 2 XR TIB_FIB RT 2V Normal [facility] CBC AUTO DIFFon 04-21-2022 BASO # 0.0 103/ul Normal 0.0-0.1 [facility] Comment on above: Performed By: #### C BC ####[facility] Fnclhdtkia745[address] [place], [place] [address]Dr. Slick Broderick Basophils/100 WBC (Bld) 0.3 % Normal 0.2-2.0 [facility] Comment on above: Performed By: #### C BC ####[facility] Pmyxdnlmji5255[address] [place], [place] [address]Dr. Slick Broderick EO # 0.6 103/ul Normal 0.0-0.7 [facility] Comment on above: Performed By: #### C BC ####[facility] Omegtmchct9616[address] [place], [place] [address]Dr. Slick Broderick Eosinophils/100 WBC (Bld) 10.2 % Critically high 0.9-7.0 [facility] Comment on above: Performed By: #### C BC ####[facility] Sugfrkyqkt4670[address] [place], [place] [address]Dr. Slick Broderick Erythrocyte distribution width (RBC) [Ratio] 14.2 % Normal 11.0-15.0 [facility] Comment on above: Performed By: #### C BC ####[facility] Psyopkapnr4561 [place] [address]Dr. Slick Broderick Hematocrit (Bld) [Volume fraction] 25.5 % Critically low 36.0-48.0 [facility] Comment on above: Performed By: #### C BC ####[facility] Snmewcgqpd3069[address] [place], [place] [address]Dr. Slick Broderick Hemoglobin (Bld) [Mass/Vol] 8.1 g/dL Critically low 12.0-16.0 [facility] Comment on above: Performed By: #### C BC ####[facility] Ikyxcgbmzu6394[address] [place], [place] [address]Dr. Slick Broderick IG # 0.02 10e3/ul Normal 0.00-0.03 [facility] Comment on above: Performed By: #### C BC ####[facility] Vxjmfkrnyw2677[address] [place], [place] [address]Dr. Meaganwendie Broderick IG % 0.3 % Normal 0.0-0.5 [facility] Comment on above: Performed By: #### C BC ####[facility] Srgbvidmbp1954[address] [place], [place] [address]Dr. Meaganwendie Davie LYMPH # 0.8 103/ul Critically low 1.2-3.8 [facility] Comment on above: Performed By: #### C BC ####[facility] Dcoyjnsdsl7470[address] [place], [place] [address]Dr. Slick Davie Lymphocytes/100 WBC (Bld) 13.2 % Critically low 20.5-60.0 [facility] Comment on above: Performed By: #### C BC ####[facility] Fvgwxijwob6445[address] [place], [place] [address]Dr. Slick Davie MANUAL DIFF REQ NO Normal [facility] Comment on above: Performed By: #### C BC ####[facility] Odamfvxgwh9301[address] [place], [place] [address]Dr. Slick Broderick MCH (RBC) [Entitic mass] 29.5 pg Normal 26.7-34.0 [facility] Comment on above: Performed By: #### C BC ####[facility] Tvyjyvwvpg667[address] [place], [place] [address]Dr. Slick Broderick MCHC (RBC) [Mass/Vol] 31.8 g/dL Normal 29.9-35.2 [facility] Comment on above: Performed By: #### C BC ####[facility] Jtsherjrve2064[address] [place], [place] [address]Dr. Slick Broderick MCV (RBC) [Entitic vol] 92.7 fL Normal 81.0-99.0 [facility] Comment on above: Performed By: #### C BC ####[facility] Uqzlotjzoj5980[address] [place], [place] [address]Dr. Slick Davie MONO # 0.6 103/ul Normal 0.3-0.8 [facility] Comment on above: Performed By: #### C BC ####[facility] Hkwpfmieih5490[address] [place], [place] [address]Dr. Slick Davie Monocytes/100 WBC (Bld) 9.2 % Normal 1.7-12.0 [facility] Comment on above: Performed By: #### C BC ####[facility] Aloockaxip9407[address] [place], [place] [address]Dr. Slick Broderick NEUT # 4.1 103/ul Normal 1.4-6.5 [facility] Comment on above: Performed By: #### C BC ####[facility] Nnplhvawlk2460[address] [place], [place] [address]Dr. Meaganwendie Broderick Neutrophils/100 WBC (Bld) 66.8 % Normal 43.0-75.0 [facility] Comment on above: Performed By: #### C BC ####[facility] Vqnthptjch828[address] [place], [place] [address]Dr. Slick Davie Platelet mean volume (Bld) [Entitic vol] 9.5 fL Normal 9.5-13.5 [facility] Comment on above: Performed By: #### C BC ####[facility] Dnfbsfrhgj[address] [place] [address]f. Slick Broderick PLT 189 103/ul Normal 150-450 [facility] Comment on above: Performed By: #### C BC ####[facility] Lgejfwzcuj9174 [place] [address]Dr. Slick Broderick RBC 2.75 106/ul Critically low 4.20-5.40 [facility] Comment on above: Performed By: #### C BC ####[facility] Bfxwrbnfxs7084 [place] [address]Dr. Slick Broderick WBC 6.2 103/ul Normal 4.0-11.0 [facility] Comment on above: Performed By: #### C BC ####[facility] Lebgiqfpha0449[address] [place], [place] [address]Dr. Slick Broderick BASO # 0.1 103/ul Normal 0.0-0.1 [facility] Comment on above: Performed By: #### C BC ####[facility] Sqxsynslgf53[address] [place], [place] [address]Dr. Slick Broderick Basophils/100 WBC (Bld) 0.8 % Normal 0.2-2.0 [facility] Comment on above: Performed By: #### C BC ####[facility] Ebredhcmuh98[address] [place], [place] [address]DrEmma Slick Davie EO # 0.8 103/ul Critically high 0.0-0.7 [facility] Comment on above: Performed By: #### C BC ####[facility] Tkwpdcycot9178 [place] [address]Dr. Slick Davie Eosinophils/100 WBC (Bld) 11.7 % Critically high 0.9-7.0 [facility] Comment on above: Performed By: #### C BC ####[facility] Fnuzdfflsn3335[address] [place], [place] [address]DrEmma Slick Davie Erythrocyte distribution width (RBC) [Ratio] 14.1 % Normal 11.0-15.0 [facility] Comment on above: Performed By: #### C BC ####[facility] Kemrojjngw4899[address] [place], [place] [address]DrEmma Broderick Hematocrit (Bld) [Volume fraction] 27.3 % Critically low 36.0-48.0 [facility] Comment on above: Performed By: #### C BC ####[facility] Zrzmmzitpy30[address] [place], [place] [address]DrEmma Broderick Hemoglobin (Bld) [Mass/Vol] 8.4 g/dL Critically low 12.0-16.0 [facility] Comment on above: Performed By: #### C BC ####[facility] Yuxcnuubau6955[address] [place], [place] [address]DrEmma Broderick IG # 0.02 10e3/ul Normal 0.00-0.03 [facility] Comment on above: Performed By: #### C BC ####[facility] Qxxrfabgng6969[address] [place], [place] [address]DrEmma Broderick IG % 0.3 % Normal 0.0-0.5 [facility] Comment on above: Performed By: #### C BC ####[facility] Qrhfxzidle9084[address] [place], [place] [address]DrEmma Broderick LYMPH # 1.0 103/ul Critically low 1.2-3.8 [facility] Comment on above: Performed By: #### C BC ####[facility] Qqhhiwemla068[address] [place], [place] [address]DrEmma Broderick Lymphocytes/100 WBC (Bld) 14.5 % Critically low 20.5-60.0 [facility] Comment on above: Performed By: #### C BC ####[facility] Vtpncahadn9[address] [place], [place] [address]DrEmma Broderick MANUAL DIFF REQ NO Normal [facility] Comment on above: Performed By: #### C BC ####[facility] Loprlxfusz16[address] [place], [place] [address]DrEmma Broderick MCH (RBC) [Entitic mass] 29.2 pg Normal 26.7-34.0 [facility] [facility] Comment on above: Performed By: #### C BC ####[facility] Fcckrwju[address] [place], [place] [address]Dr. Slick Broderick MCHC (RBC) [Mass/Vol] 30.8 g/dL Normal 29.9-35.2 [facility] Comment on above: Performed By: #### C BC ####[facility] Jwgzaovurl[address] [place], [place] [address]DrEmma Broderick MCV (RBC) [Entitic vol] 94.8 fL Normal 81.0-99.0 [facility] Comment on above: Performed By: #### C BC ####[facility] Hbvrjhxica[address] [place], [place] [address]DrEmma Broderick MONO # 0.6 103/ul Normal 0.3-0.8 [facility] Comment on above: Performed By: #### C BC ####[facility] Rpcbvnljzx552[address] [place], [place] [address]DrEmma Broderick Monocytes/100 WBC (Bld) 9.7 % Normal 1.7-12.0 [facility] Comment on above: Performed By: #### C BC ####[facility] Dtuewxjllh[address] [place], [place] [address]Dr. Slick Broderick NEUT # 4.2 103/ul Normal 1.4-6.5 [facility] Comment on above: Performed By: #### C BC ####[facility] Uwnjmbuftv[address] [place], [place] [address]DrEmma Broderick Neutrophils/100 WBC (Bld) 63.0 % Normal 43.0-75.0 [facility] Comment on above: Performed By: #### C BC ####[facility] Lqbdhqainl[address] [place], [place] [address]DrEmma Broderick Platelet mean volume (Bld) [Entitic vol] 10.0 fL Normal 9.5-13.5 [facility] Comment on above: Performed By: #### C BC ####[facility] Fjefczscry[address] [place], [place] [address]DrEmma Broderick PLT 210 103/ul Normal 150-450 [facility] Comment on above: Performed By: #### C BC ####[facility] Byzttksmom[address] [place], [place] [address]DrEmma Broderick RBC 2.88 106/ul Critically low 4.20-5.40 [facility] Comment on above: Performed By: #### C BC ####[facility] [address]oslq[address] [place] [id number]. Slick Broderick WBC 6.6 103/ul Normal 4.0-11.0 [facility] Comment on above: Performed By: #### C BC ####[facility] Drlaihzaqk2624 [place] [id number]. Slick Broderick CRPon 04-21-2022 CRP 0.4 mg/dL Normal <=1.0 [facility] Comment on above: Performed By: #### H STROPN, CRP, CMP ####[facility] Gsyozajasl[address] [place] [id number]. Slick Broderick CT HEAD WO CONon 04-21-2022 CT HEAD WO CON Normal [facility] CULTURE BLOODon 04-21-2022 Microscopic examination of blood, culture Culture Observations: NO GROWTH AT 5 DAYS. Normal [facility] Comment on above: Performed By: #### B LDCX2 ####[facility] Yzqpklwtxl2207 [place] [id number]. Slick Broderick Microscopic examination of blood, culture Culture Observations: NO GROWTH AT 5 DAYS. Normal [facility] Comment on above: Performed By: #### B LDCX1 ####[facility] Lxeomqhbvw28[address] [place] [address]Dr. Slick Broderick CULTURE URINEon 04-21-2022 CULTURE URINE Culture Observations: MODERATE GROWTH OF MIXED GENITAL OMAR. NO POTENTIAL PATHOGENS SEEN. Normal [facility] Comment on above: Performed By: #### U RCX ####[facility] Dizwfvwfiz40[address] [place] [id number]. Slick Broderick [facility]on 04-12 SARS-CoV-2 (COVID-19) RNA DONNIE+probe Ql (Unsp spec) Not detected Normal NOT DETECTED [facility] Comment on above: Result [...] for this test is supported by the [place] of Health and Human Service's declaration that [...] be used). Performed By: #### C ARAMIS ####[facility] Clyjxnwjln35[address] [place], [place] [address]Dr. Slick Broderick ER URINE PROFILEon 2 Bilirubin Ql (U) Negative Normal NEGATIVE [facility] Comment on above: Performed By: #### JANIS PEDRO ####[facility] Nutatklkst574[address] [place], [place] [address]Dr. Slick Broderick Clarity (U) CLEAR Normal CLEAR [facility] Comment on above: Performed By: #### AMBERLY PEDRORO ####[facility] Txbugmjqkw2936[address] [place], [place] [address]Dr. Slick Broderick Color (U) LT. YELLOW Normal YELLOW [facility] Comment on above: Performed By: #### AMBERLY PEDRORO ####[facility] Diwwhdqkbl539[address] [place], [place] [address]Dr. Slick Broderick ERUAHD A micrscopic examination will be performed if indicated. Normal [facility] Comment on above: Performed By: #### AMBERLY PEDRORO ####[facility] Atnqlnxbjo03[address] [place], [place] [address]Dr. Slick Broderick Glucose Ql (U) Negative Normal NEGATIVE [facility] Comment on above: Performed By: #### AMBERLY PEDRORO ####[facility] Gyqkndoqvh266[address] [place], [place] [address]Dr. Slick Broderick Hemoglobin Ql (U) Negative Normal NEGATIVE [facility] Comment on above: Performed By: #### AMBERLY PEDRORO ####[facility] Rnqcrrnasu06[address] [place], [place] [address]Dr. Slick Broderick Ketones Ql (U) Negative Normal NEGATIVE [facility] Comment on above: Performed By: #### AMOS PEDROICRO ####[facility] Oefzcxmymh14[address] [place], [place] [address]Dr. Slick Broderick LEUKOCYTES TRACE Abnormal NEGATIVE [facility] Comment on above: Performed By: #### AMOS PEDROICRO ####[facility] Teulzrorug[address] [place], [place] [address]Dr. Slick Broderick Nitrite Ql (U) Negative Normal NEGATIVE [facility] Comment on above: Performed By: #### AMBERLY PEDRORO ####[facility] Ouqtsohoqe19[address] [place], [place] [address]Dr. Slick Broderick pH (U) 5.5 [pH] Normal 5-9 [facility] Comment on above: Performed By: #### AMOS PEDROICRO ####[facility] Ndhbrajlby193[address] [place], [place] [address]Dr. Slick Broderick SPEC GRAVITY 1.010 Normal 1.005-<=1.0 25 [facility] Comment on above: Performed By: #### AMOS PEDROICRO ####[facility] Sxmzdcoolx[address] [place], [place] [address]Dr. Slick Broderick UA PROTEIN Negative Normal NEGATIVE/ TRACE [facility] Comment on above: Performed By: #### AMOS PEDROICRO ####[facility] Frvzprfxey47[address] [place], [place] [address]Dr. Slick Broderick UR MICRO IND INDICATED Normal [facility] Comment on above: Performed By: #### Dennise PLEITEZ UMICRO ####[facility] H[address]ogyquzlm[address] [place] [address]Dr. Slick Broderick Urobilinogen Qn (U) 0.2 {Hiren'U}/dL Normal 0.2 - 1. 0 [facility] Comment on above: Performed By: #### E JANIS PLEITEZ ####[facility] Eeazbpnhyi[address] [place] [address]Dr. Slick Broderick LACTATE/LACTIC ACIDon 2021 Lactate [Moles/Vol] 1.0 mmol/L Normal 0.4-1.[address] [facility] Comment on above: Performed By: #### L ACT ####[facility] Jjhzpzulqp38[address] [place] [address]Dr. Slick Broderick POINT OF CARE GLUCOSEon 04-12 Glucose [Mass/Vol] 109 mg/dL Critically high 74-106 [facility] Comment on above: Performed By: #### P OCGLUC ####[facility] Erwioavvrw5[address] [place] [address]Dr. Slick Broderick Glucose [Mass/Vol] 93 mg/dL Normal 74-106 [facility] Comment on above: Performed By: #### P OCGLUC ####[facility] Ekeuvkgvsl9334 [place] [address]Dr. Slick Broderick Glucose [Mass/Vol] 140 mg/dL Critically high 74-106 [facility] Comment on above: Performed By: #### P OCGLUC ####[facility] Edowvapgsg0201 [place] [address]Dr. Slick Broderick Glucose [Mass/Vol] 95 mg/dL Normal 74-106 [facility] Comment on above: Performed By: #### P OCGLUC ####[facility] Mktqqbsbsw7691 [place] [address]Dr. Slick Davie PROF 14(COMP METB)on 022 Albumin [Mass/Vol] 2.9 g/dL Critically low 3.4-5.0 [facility] Comment on above: Performed By: #### C MP ####[facility] Etwmcjbwfm7266 [place] [address]Dr. Slick Broderick Albumin/Globulin [Mass ratio] 0.9 {ratio} Normal [facility] Comment on above: Performed By: #### C MP ####[facility] Sipowlrxbd2959 [place] [address]Dr. Slick Broderick ALP [Catalytic activity/Vol] 87 U/L Normal 46-116 [facility] Comment on above: Performed By: #### C MP ####[facility] Ufoqnmgkro4261 [place] [address]Dr. Slick Broderick ALT [Catalytic activity/Vol] 21 U/L Normal 14-59 [facility] Comment on above: Performed By: #### C MP ####[facility] Ublexyosad27[address] [place], [place] [address]Dr. Slick Broderick Anion gap [Moles/Vol] 7.7 mmol/L Normal [facility] Comment on above: Performed By: #### C MP ####[facility] Igownkoqjn8101[address] [place], [place] [address]Dr. Slick Broderick AST [Catalytic activity/Vol] 11 U/L Critically low 15-37 [facility] Comment on above: Performed By: #### C MP ####[facility] Upgrcledgf596[address] [place], [place] [address]Dr. Slick Broderick Bilirubin [Mass/Vol] 0.2 mg/dL Normal 0.2-1.0 [facility] Comment on above: Performed By: #### C MP ####[facility] Agsxlkxqvx9[address] [place], [place] [address]Dr. Slick Broderick Calcium [Mass/Vol] 9.4 mg/dL Normal 8.5-10.1 [facility] Comment on above: Performed By: #### C MP ####[facility] Xhmtufnjld9165[address] [place], [place] [address]Dr. Slick Broderick Chloride [Moles/Vol] 107 mmol/L Normal 98-107 [facility] Comment on above: Performed By: #### C MP ####[facility] Otgdgnqriu88[address] [place], [place] [address]Dr. Slick Broderick CO2 [Moles/Vol] 31.2 mmol/L Normal 21.0-32.0 [facility] Comment on above: Performed By: #### C MP ####[facility] Bznkittgnt56[address] [place], [place] [address]Dr. Slick Broderick Creatinine [Mass/Vol] 2.06 mg/dL Critically high 0.55-1.02 [facility] Comment on above: Performed By: #### C MP ####[facility] Ywjqssalls33[address] [place] [address]Dr. Slick Broderick EGFR-AF IRAQI 29 mL/min/1.73m2 Critically low >=60 [facility] Comment on above: Performed By: #### C MP ####[facility] Vzubfhaeyl97[address] [place] [address]Dr. Slick Broderick EGFR-NON AF IRAQI 24 mL/min/1.73m2 Critically low >=60 [facility] Comment on above: Performed By: #### C MP ####[facility] Vseicwikcr8703 [place] [address]Dr. Slick Broderick Globulin (S) [Mass/Vol] 3.4 g/dL Normal T [facility] Comment on above: Performed By: #### C MP ####[facility] Mgexwywxyg6442 [place] [address]Dr. Slick Broderick Glucose [Mass/Vol] 93 mg/dL Normal 74-106 [facility] Comment on above: Performed By: #### C MP ####[facility] Wemtoadywt5131 [place] [address]Dr. Slick Broderick Potassium [Moles/Vol] 4.9 mmol/L Normal 3.5-5.1 [facility] Comment on above: Performed By: #### C MP ####[facility] Rwlgspwqgx1082 [place] [address]Dr. Slick Davie Protein [Mass/Vol] 6.3 g/dL Critically low 6.4-8.2 [facility] Comment on above: Performed By: #### C MP ####[facility] Degsjgugkk7022 [place] [address]Dr. Slick Broderick Sodium [Moles/Vol] 141 mmol/L Normal 136-145 [facility] Comment on above: Performed By: #### C MP ####[facility] Vvscjtiibc5058 [place] [address]Dr. Slick Broderick Urea nitrogen [Mass/Vol] 63.0 mg/dL Critically high 7.0-18.0 [facility] Comment on above: Performed By: #### C MP ####[facility] Mjrfujhuil4021 [place] [address]Dr. Meaganwendie Broderick Urea nitrogen/Creatinine [Mass ratio] 30.6 mg/mg Normal [facility] Comment on above: Performed By: #### C MP ####[facility] Okhjpeafnt4091 [place] [address]Dr. Meaganwendie Broderick Albumin [Mass/Vol] 3.1 g/dL Critically low 3.4-5.0 [facility] Comment on above: Performed By: #### H STROPN, CRP, CMP ####[facility] Eokqznjyqv0358 [place] [address]Dr. Meaganwendie Broderick Albumin/Globulin [Mass ratio] 0.9 {ratio} Normal [facility] Comment on above: Performed By: #### H STROPN, CRP, CMP ####[facility] Bzhphhmkyh8[address] [place] [address]Dr. Meaganwendie Broderick ALP [Catalytic activity/Vol] 98 U/L Normal 46-116 [facility] Comment on above: Performed By: #### H STROPN, CRP, CMP ####[facility] Kzvcrrnxlo69[address] [place], [place] [address]Dr. eMaganwendie Broderick ALT [Catalytic activity/Vol] 17 U/L Normal 14-59 [facility] Comment on above: Performed By: #### H STROPN, CRP, CMP ####[facility] Cakdbxxjyx07[address] [place] [address]Dr. Slick Broderick Anion gap [Moles/Vol] 4.3 mmol/L Normal [facility] Comment on above: Performed By: #### H STROPN, CRP, CMP ####[facility] Qrwmxxvyfn2021 [place] [address]Dr. Meaganwendie Broderick AST [Catalytic activity/Vol] 11 U/L Critically low 15-37 [facility] Comment on above: Performed By: #### H STROPN, CRP, CMP ####[facility] Pefszzgdsd7118 [place] [address]Dr. Slick Broderick Bilirubin [Mass/Vol] 0.2 mg/dL Normal 0.2-1.0 [facility] Comment on above: Performed By: #### H STROPN, CRP, CMP ####[facility] Njefcekjsc3430 [place] [address]Dr. Slick Broderick Calcium [Mass/Vol] 9.6 mg/dL Normal 8.5-10.1 [facility] Comment on above: Performed By: #### H STROPN, CRP, CMP ####[facility] Tbeockyhpc7293 [place] [address]Dr. Slick Broderick Chloride [Moles/Vol] 104 mmol/L Normal 98-107 [facility] Comment on above: Performed By: #### H STROPN, CRP, CMP ####[facility] Ebrcarcity6775 [place] [address]Dr. Slick Broderick CO2 [Moles/Vol] 32.3 mmol/L Critically high 21.0-32.0 [facility] Comment on above: Performed By: #### H STROPN, CRP, CMP ####[facility] Lmyapvsuky[address] [place], [place] [address]Dr. Slick Broderick Creatinine [Mass/Vol] 2.49 mg/dL Critically high 0.55-1.02 [facility] Comment on above: Performed By: #### H STROPN, CRP, CMP ####[facility] Voxyejscke4556 [place] [address]Dr. Slick Broderick EGFR-AF IRAQI 23 mL/min/1.73m2 Critically low >=60 [facility] Comment on above: Performed By: #### H STROPN, CRP, CMP ####[facility] Zpilibtveu85[address] [place], [place] [address]Dr. Slick Broderick EGFR-NON AF IRAQI 19 mL/min/1.73m2 Critically low >=60 [facility] Comment on above: Performed By: #### H STROPN, CRP, CMP ####[facility] Tmwlysspdz[address] [place], [place] [address]Dr. Slick Broderick Globulin (S) [Mass/Vol] 3.5 g/dL Normal [facility] Comment on above: Performed By: #### H STROPN, CRP, CMP ####[facility] Rkmksksyty7030 [place] [address]Dr. Slick Broderick Glucose [Mass/Vol] 112 mg/dL Critically high 74-106 [facility] Comment on above: Performed By: #### H STROPN, CRP, CMP ####[facility] Xjcfsstvcy4505 [place] [address]Dr. Slick Broderick Potassium [Moles/Vol] 4.6 mmol/L Normal 3.5-5.1 [facility] Comment on above: Performed By: #### H STROPN, CRP, CMP ####[facility] Oqmbuvidcx3250 [place] [address]Dr. Slick Broderick Protein [Mass/Vol] 6.6 g/dL Normal 6.4-8.2 [facility] Comment on above: Performed By: #### H STROPN, CRP, CMP ####[facility] Fendpfkdsh4338 [place] [address]Dr. Slick Broderick Sodium [Moles/Vol] 136 mmol/L Normal 136-145 [facility] Comment on above: Performed By: #### H STROPN, CRP, CMP ####[facility] Nhavgmthqu1312 [place] [address]Dr. Slick Broderick Urea nitrogen [Mass/Vol] 74.0 mg/dL Critically high 7.0-18.0 [facility] Comment on above: Performed By: #### H STROPN, CRP, CMP ####[facility] Watdpmjigo6278 [place] [address]Dr. Slick Broderick Urea nitrogen/Creatinine [Mass ratio] 29.7 mg/mg Normal [facility] Comment on above: Performed By: #### H STROPN, CRP, CMP ####[facility] Llryuznski98[address] [place] [address]Dr. Slick Broderick SED RATE [facility] 2021 SED RATE 32 mm/hr Critically high <=30 [facility] Comment on above: Performed By: #### S EDR ####[facility] Isemwrocsb3466 [place] [address]Dr. Slick Broderick TROPONIN, HIGH SENSITIVITYon 04-21-2022 HSTROP 8.6 pg/mL Normal 4.0-51.3 [facility] Comment on above: Result Comment: CUT- OFF POINTS HAVE BEEN ESTABLISHED BASED ON THE FOURTH UNIVERSAL DEFINITIONS OF MYOCARDIALINFARCTION. THE UPPER REFERENCE LIMIT (URL) OF TROPONIN, DEFINED THE 99TH PERCENTILE OFcTnI DISTRIBUTION IN A REFERENCE POPULATION, HAS BEEN CONFIRMED THE DECISION THRESHOLDFOR VA DIAGNOSIS. Performed By: #### H STROPN, CRP, CMP ####[facility] Bvzudesczx[address] [place], [place] [address]Dr. Slick Broderick URINE MICROSCOPIC ONLYon BACTERIA TRACE Abnormal NONE SEEN [facility] Comment on above: Performed By: #### Dennise PLEITEZ UMICRO ####[facility] Zfawusifqv725[address] [place], [place] [address]Dr. Slick Broderick Bacteria identified Cx Nom (U) INDICATED Normal [facility] Comment on above: Performed By: #### Dennise PLEITEZ UMICRO ####[facility] Igghnzlvyf8648 [place] [address]Dr. Slick Broderick CAST NONE SEEN Normal NONE SEEN [facility] Comment on above: Performed By: #### Dennise PLEITEZ UMICRO ####[facility] Ldndddhjed9766 [place] [address]Dr. Slick Broderick Crystals LM Nom (Urine sed) NONE SEEN Normal NONE SEEN [facility] Comment on above: Performed By: #### Dennise PLEITEZ UMICRO ####[facility] Txrgjbgeyc8959 [place] [address]Dr. Slick Brodeirck Epithelial cells LM Ql (Urine sed) FEW Abnormal NONE SEEN /RARE [facility] Comment on above: Performed By: #### E MAIK UMICRO ####[facility] Wljpriamni5906 [place] [address]Dr. Slick Broderick MUCOUS NONE SEEN Normal NONE SEEN [facility] Comment on above: Performed By: #### JANIS PEDRO ####[facility] Twzmgouyjp4450 [place] [address]Dr. Meaganwendie Davie RBC 0-2 Normal 0-2 [facility] Comment on above: Performed By: #### JANIS PEDRO ####[facility] Klfwcbuokc7802 [place] [address]Dr. Slick Broderick WBC 5-10 Abnormal NONE SEEN [facility] Comment on above: Performed By: #### JANIS PEDRO ####[facility] Hdmjlvnvdz8[address] [place], [place] [address]Dr. Slick Brdoerick XR CHEST 1 Von 04-21-2022 XR CHEST 1 V Normal [facility] CBC AUTO DIFFon 03-29-2022 BASO # 0.1 103/ul Normal 0.0-0.1 [facility] Comment on above: Performed By: #### C BC ####[facility] Iczemdrhxf[address] [place], [place] [address]Dr. Slick Broderick Basophils/100 WBC (Bld) 0.7 % Normal 0.2-2.0 [facility] Comment on above: Performed By: #### C BC ####[facility] Nyloipmpfm350[address] [place], [place] [address]Dr. Slick Broderick EO # 0.4 103/ul Normal 0.0-0.7 [facility] Comment on above: Performed By: #### C BC ####[facility] Nzyikiritr69[address] [place], [place] [address]Dr. Slick Broderick Eosinophils/100 WBC (Bld) 4.8 % Normal 0.9-7.0 [facility] Comment on above: Performed By: #### C BC ####[facility] Sgkdyhvauz723[address] [place], [place] [address]Dr. Slick Broderick Erythrocyte distribution width (RBC) [Ratio] 13.9 % Normal 11.0-15.0 [facility] Comment on above: Performed By: #### C BC ####[facility] Vbqpyxpmri57[address] [place], [place] [address]Dr. Slick Broderick Hematocrit (Bld) [Volume fraction] 28.0 % Critically low 36.0-48.0 [facility] Comment on above: Performed By: #### C BC ####[facility] Rigeuctkbc0717 [place] [address]Dr. Slick Broderick Hemoglobin (Bld) [Mass/Vol] 8.8 g/dL Critically low 12.0-16.0 [facility] Comment on above: Performed By: #### C BC ####[facility] Mmzbnnokaj[address] [place], [place] [address]DrEmma Broderick IG # 0.05 10e3/ul Critically high 0.00-0.03 [facility] Comment on above: Performed By: #### C BC ####[facility] Osfqbbzrzg88[address] [place], [place] [address]DrEmma Broderick IG % 0.7 % Critically high 0.0-0.5 [facility] Comment on above: Performed By: #### C BC ####[facility] Scqclliwoc74[address] [place], [place] [address]DrEmma Broderick LYMPH # 1.0 103/ul Critically low 1.2-3.8 [facility] Comment on above: Performed By: #### C BC ####[facility] Btqextnurs[address] [place], [place] [address]DrEmma Broderick Lymphocytes/100 WBC (Bld) 13.0 % Critically low 20.5-60.0 [facility] Comment on above: Performed By: #### C BC ####[facility] Fsmegqloel85[address] [place], [place] [address]DrEmma Broderick MANUAL DIFF REQ NO Normal [facility] Comment on above: Performed By: #### C BC ####[facility] Trawkeabxq7[address] [place], [place] [address]DrEmma Broderick MCH (RBC) [Entitic mass] 28.9 pg Normal 26.7-34.0 [facility] Comment on above: Performed By: #### C BC ####[facility] Gbogaocwdo4[address] [place], [place] [address]DrEmma Broderick MCHC (RBC) [Mass/Vol] 31.4 g/dL Normal 29.9-35.2 [facility] Comment on above: Performed By: #### C BC ####[facility] Nrqlanfozi5[address] [place], [place] [address]DrEmma Meaganwendie Broderick MCV (RBC) [Entitic vol] 92.1 fL Normal 81.0-99.0 [facility] Comment on above: Performed By: #### C BC ####[facility] [facility] Xyydtpskle[address] [place], [place] [address]DrEmma Broderick MONO # 0.8 103/ul Normal 0.3-0.8 [facility] Comment on above: Performed By: #### C BC ####[facility] Ibtrpxcxnq7[address] [place], [place] [address]DrEmma Broderick Monocytes/100 WBC (Bld) 10.7 % Normal 1.7-12.0 [facility] Comment on above: Performed By: #### C BC ####[facility] Gpceakypfp67[address] [place], [place] [address]DrEmma Broderick NEUT # 5.4 103/ul Normal 1.4-6.5 [facility] Comment on above: Performed By: #### C BC ####[facility] Zqomfecumi[address] [place], [place] [address]DrEmma Broderick Neutrophils/100 WBC (Bld) 70.1 % Normal 43.0-75.0 [facility] Comment on above: Performed By: #### C BC ####[facility] Ctjezemtkn78[address] [place], [place] [address]DrEmma Broderick Platelet mean volume (Bld) [Entitic vol] 8.9 fL Critically low 9.5-13.5 [facility] Comment on above: Performed By: #### C BC ####[facility] Xhluryiqno[address] [place], [place] [address]DrEmma Broderick PLT 221 103/ul Normal 150-450 [facility] Comment on above: Performed By: #### C BC ####[facility] Stiqftejhw65[address] [place], [place] [address]DrEmma Broderick RBC 3.04 106/ul Critically low 4.20-5.40 [facility] Comment on above: Performed By: #### C BC ####[facility] Zxtmvwbzvm[address] [place] [address]DrEmma Rhodeswendie Davie WBC 7.7 103/ul Normal 4.0-11.0 [facility] Comment on above: Performed By: #### C BC ####[facility] Zvjivmttip77[address] [place] [address]DrEmma Slick Davie PRBC LEUKOREDUCEDon 03-29-20 22 PRBC LEUKOREDUCED Cross Match Result Compatible Unit Blood Type O Pos Unit Number [id number] Status Information Transfused Product ID Red Blood Cells Product Code [id number] Normal [facility] Comment on above: Performed By: #### P RBC ####[facility] Jukzbwogin[address] [place] [address]DrEmma Broderick PROF CHEM 8 (BAS METB)on Anion gap [Moles/Vol] 9.6 mmol/L Normal [facility] Comment on above: Performed By: #### B MP ####[facility] Qvtzgfeaji7[address] [place] [address]DrEmma Broderick Calcium [Mass/Vol] 9.4 mg/dL Normal 8.5-10.1 [facility] Comment on above: Performed By: #### B MP ####[facility] Fowanvppwc96[address] [place] [address]Dr. Slick Broderick Chloride [Moles/Vol] 101 mmol/L Normal 98-107 [facility] Comment on above: Performed By: #### B MP ####[facility] Rpnvofkyrr1569 [place] [address]DrEmma Broderick CO2 [Moles/Vol] 28.3 mmol/L Normal 21.0-32.0 [facility] Comment on above: Performed By: #### B MP ####[facility] Twilpxuiho37[address] [place] [address]DrEmma Broderick Creatinine [Mass/Vol] 1.56 mg/dL Critically high 0.55-1.02 [facility] Comment on above: Performed By: #### B MP ####[facility] Xsoudjqxua9748 [place] [address]Dr. Slick Broderick EGFR-AF IRAQI 39 mL/min/1.73m2 Critically low >=60 [facility] Comment on above: Performed By: #### B MP ####[facility] Tnmewmmlnp5[address] [place] [address]Dr. Slick Davie EGFR-NON AF IRAQI 33 mL/min/1.73m2 Critically low >=60 [facility] Comment on above: Performed By: #### B MP ####[facility] Vidjbvksjb6024 [place] [address]Dr. Meaganwendie Davie Glucose [Mass/Vol] 88 mg/dL Normal 74-106 [facility] Comment on above: Performed By: #### B MP ####[facility] Xbndepmzzi20[address] [place] [address]Dr. Slick Broderick Potassium [Moles/Vol] 4.9 mmol/L Normal 3.5-5.1 [facility] Comment on above: Performed By: #### B MP ####[facility] Ihiopkrisd5676 [place] [address]Dr. Slick Broderick Sodium [Moles/Vol] 134 mmol/L Critically low 136-145 [facility] Comment on above: Performed By: #### B MP ####[facility] Gtiyxkysxm1205 [place] [address]Dr. Slick Broderick Urea nitrogen [Mass/Vol] 50.0 mg/dL Critically high 7.0-18.0 [facility] Comment on above: Performed By: #### B MP ####[facility] Kwqcpegrfp9419 [place] [address]Dr. Slick Broderick Urea nitrogen/Creatinine [Mass ratio] 32.1 mg/mg Normal [facility] Comment on above: Performed By: #### B MP ####[facility] Jzpxemfxvw8357 [place] [address]Dr. Slick Broderick CBC AUTO DIFFon 03-28-2022 BASO # 0.1 103/ul Normal 0.0-0.1 [facility] Comment on above: Performed By: #### C BC ####[facility] Nuxocbrhdq158[address] [place], [place] [address]Dr. Slick Broderick Basophils/100 WBC (Bld) 0.7 % Normal 0.2-2.0 [facility] Comment on above: Performed By: #### C BC ####[facility] Ikjepqijli49[address] [place], [place] [address]Dr. Slick Broderick EO # 0.4 103/ul Normal 0.0-0.7 [facility] Comment on above: Performed By: #### C BC ####[facility] Lrwqxavjpx388[address] [place], [place] [address]Dr. Slick Broderick Eosinophils/100 WBC (Bld) 5.5 % Normal 0.9-7.0 [facility] Comment on above: Performed By: #### C BC ####[facility] Khgcrmdlte5312[address] [place], [place] [address]Dr. Slick Broderick Erythrocyte distribution width (RBC) [Ratio] 13.6 % Normal 11.0-15.0 [facility] Comment on above: Performed By: #### C BC ####[facility] Ulbtgcakcd6234[address] [place], [place] [address]Dr. Slick Broderick Hematocrit (Bld) [Volume fraction] 27.9 % Critically low 36.0-48.0 [facility] Comment on above: Performed By: #### C BC ####[facility] Ohijwmoqkz4613[address] [place], [place] [address]Dr. Slick Broderick Hemoglobin (Bld) [Mass/Vol] 9.0 g/dL Critically low 12.0-16.0 [facility] Comment on above: Performed By: #### C BC ####[facility] Qzoilxitqt1618[address] [place], [place] [address]Dr. Slick Broderick IG # 0.02 10e3/ul Normal 0.00-0.03 [facility] Comment on above: Performed By: #### C BC ####[facility] Lqqcyviekd039[address] [place], [place] [address]DrEmma Broderick IG % 0.3 % Normal 0.0-0.5 [facility] Comment on above: Performed By: #### C BC ####[facility] Njuhqehxdl3116 [place] [address]DrEmma Broderick LYMPH # 0.9 103/ul Critically low 1.2-3.8 [facility] Comment on above: Performed By: #### C BC ####[facility] Mezlzbvvsq5506 [place] [address]DrEmma Broderick Lymphocytes/100 WBC (Bld) 13.0 % Critically low 20.5-60.0 [facility] Comment on above: Performed By: #### C BC ####[facility] Jxszphxkyb729[address] [place], [place] [address]DrEmma Broderick MANUAL DIFF REQ NO Normal [facility] Comment on above: Performed By: #### C BC ####[facility] Mfucdcqpqs17[address] [place] [address]DrEmma Broderick MCH (RBC) [Entitic mass] 29.6 pg Normal 26.7-34.0 [facility] Comment on above: Performed By: #### C BC ####[facility] Fzrnfizopu12[address] [place], [place] [address]DrEmma Broderick MCHC (RBC) [Mass/Vol] 32.3 g/dL Normal 29.9-35.2 [facility] Comment on above: Performed By: #### C BC ####[facility] M[address]rmjqrskv[address] [place], [place] [id number] Broderick MCV (RBC) [Entitic vol] 91.8 fL Normal 81.0-99.0 [facility] Comment on above: Performed By: #### C BC ####[facility] Wjzxhlsrwu99[address] [place], [place] [address]DrEmma Broderick MONO # 0.7 103/ul Normal 0.3-0.8 [facility] Comment on above: Performed By: #### C BC ####[facility] Qredplppkm374[address] [place], [place] [address]DrEmma Broderick Monocytes/100 WBC (Bld) 11.1 % Normal 1.7-12.0 [facility] Comment on above: Performed By: #### C BC ####[facility] Orwhhrenov5199 [place] [address]Dr. Slick Broderick NEUT # 4.6 103/ul Normal 1.4-6.5 [facility] Comment on above: Performed By: #### C BC ####[facility] Hwahmokucg6964 [place] [address]Dr. Slick Broderick Neutrophils/100 WBC (Bld) 69.4 % Normal 43.0-75.0 [facility] Comment on above: Performed By: #### C BC ####[facility] Mucyuvnpxy74[address] [place] [address]Dr. Slick Broderick Platelet mean volume (Bld) [Entitic vol] 8.9 fL Critically low 9.5-13.5 [facility] Comment on above: Performed By: #### C BC ####[facility] Gneioqmwsc8813[address] [place], [place] [address]Dr. Slick Broderick PLT 216 103/ul Normal 150-450 [facility] Comment on above: Performed By: #### C BC ####[facility] Karaeagdgm6575[address] [place], [place] [address]Dr. Slick Broderick RBC 3.04 106/ul Critically low 4.20-5.40 [facility] Comment on above: Performed By: #### C BC ####[facility] Kqcojohpyk7[address] [place] [address]Dr. Slick Broderick WBC 6.7 103/ul Normal 4.0-11.0 [facility] Comment on above: Performed By: #### C BC ####[facility] Zylxmunmlu3574[address] [place], [place] [address]Dr. Slick Broderick BASO # 0.0 103/ul Normal 0.0-0.1 [facility] Comment on above: Performed By: #### C BC ####[facility] Vxsjcsyyfb2365[address] [place], [place] [address]Dr. Slick Broderick Basophils/100 WBC (Bld) 0.5 % Normal 0.2-2.0 [facility] Comment on above: Performed By: #### C BC ####[facility] Barrndpcpq6993 [place] [address]Dr. Slick Broderick EO # 0.4 103/ul Normal 0.0-0.7 [facility] Comment on above: Performed By: #### C BC ####[facility] Gkxyymjxwi6427[address] [place], [place] [address]Dr. Slick Broderick Eosinophils/100 WBC (Bld) 5.3 % Normal 0.9-7.0 [facility] Comment on above: Performed By: #### C BC ####[facility] Yieaamaxjy1726[address] [place], [place] [address]Dr. Slick Broderick Erythrocyte distribution width (RBC) [Ratio] 12.9 % Normal 11.0-15.0 [facility] Comment on above: Performed By: #### C BC ####[facility] Rurrthrxlc668[address] [place], [place] [address]Dr. Slick Broderick Hematocrit (Bld) [Volume fraction] 23.9 % Critically low 36.0-48.0 [facility] Comment on above: Performed By: #### C BC ####[facility] Kqcxluxffj6269[address] [place], [place] [address]DrEmma Broderick Hemoglobin (Bld) [Mass/Vol] 7.7 g/dL Critically low 12.0-16.0 [facility] Comment on above: Performed By: #### C BC ####[facility] Uofuefmtnl7967[address] [place], [place] [address]DrEmma Broderick IG # 0.04 10e3/ul Critically high 0.00-0.03 [facility] Comment on above: Performed By: #### C BC ####[facility] Ajsyfmpjof2690[address] [place], [place] [address]Dr. Slick Broderick IG % 0.5 % Normal 0.0-0.5 [facility] Comment on above: Performed By: #### C BC ####[facility] Zbfsfdzbcs4075[address] [place], [place] [address]DrEmma Broderick LYMPH # 0.9 103/ul Critically low 1.2-3.8 [facility] Comment on above: Performed By: #### C BC ####[facility] Heuiwgjypb5372 [place] [address]DrEmma Broderick Lymphocytes/100 WBC (Bld) 11.7 % Critically low 20.5-60.0 [facility] Comment on above: Performed By: #### C BC ####[facility] Jpicmlgilt1390 [place] [address]DrEmma Broderick MANUAL DIFF REQ NO Normal [facility] Comment on above: Performed By: #### C BC ####[facility] Ezhffwjkoj35[address] [place], [place] [address]DrEmma Broderick MCH (RBC) [Entitic mass] 30.1 pg Normal 26.7-34.0 [facility] Comment on above: Performed By: #### C BC ####[facility] Lxlpjcudck7922[address] [place], [place] [address]DrEmma Broderick MCHC (RBC) [Mass/Vol] 32.2 g/dL Normal 29.9-35.2 [facility] Comment on above: Performed By: #### C BC ####[facility] Tibddxqwpn8604[address] [place], [place] [address]DrEmma Broderick MCV (RBC) [Entitic vol] 93.4 fL Normal 81.0-99.0 [facility] Comment on above: Performed By: #### C BC ####[facility] Ehrnhnaotz[address] [place], [place] [address]DrEmma Broderick MONO # 0.9 103/ul Critically high 0.3-0.8 [facility] Comment on above: Performed By: #### C BC ####[facility] Zovaekddof4216[address] [place], [place] [address]DrEmma Broderick Monocytes/100 WBC (Bld) 12.0 % Normal 1.7-12.0 [facility] Comment on above: Performed By: #### C BC ####[facility] Lhpmxdjmux197[address] [place], [place] [address]DrEmma Broderick NEUT # 5.4 103/ul Normal 1.4-6.5 [facility] Comment on above: Performed By: #### C BC ####[facility] Qtyevawtzm0985 [place] [address]Dr. Slick Broderick Neutrophils/100 WBC (Bld) 70.0 % Normal 43.0-75.0 [facility] Comment on above: Performed By: #### C BC ####[facility] Vdyuospfro2559 [place] [address]Dr. Slick Broderick Platelet mean volume (Bld) [Entitic vol] 9.0 fL Critically low 9.5-13.5 [facility] Comment on above: Performed By: #### C BC ####[facility] Aekagacqva7661 [place] [address]Dr. Slick Broderick PLT 210 103/ul Normal 150-450 [facility] Comment on above: Performed By: #### C BC ####[facility] Ijconwuoxt[address] [place], [place] [address]Dr. Slick Broderick RBC 2.56 106/ul Critically low 4.20-5.40 [facility] Comment on above: Performed By: #### C BC ####[facility] Dbnlggjxgk054[address] [place], [place] [address]Dr. Slick Broderick WBC 7.7 103/ul Normal 4.0-11.0 [facility] Comment on above: Performed By: #### C BC ####[facility] Zhkrobgwum[address] [place], [place] [address]Dr. Slick Broderick CULTURE URINEon 03-28-2022 CULTURE URINE Culture Observations: NO GROWTH. Normal [facility] Comment on above: Performed By: #### U RCX ####[facility] Kmwwtcbdno[address] [place], [place] [address]Dr. Slick Broderick Covid-19 PCR (CVDTB)on 03-12 SARS-CoV-2 (COVID-19) RNA DONNIE+probe Ql (Unsp spec) Not detected Normal NOT DETECTED [facility] Comment on above: Result [...] for this test is supported by the [place] of [employer] and Human Service's declaration that [...] be used). Performed By: #### C VDTBH ####[facility] Obnewlaxoe[address] [place] [address]Dr. Slick Broderick IRONon 03-28-2022 Iron [Mass/Vol] 32.0 ug/dL Critically low 50.0-170.[address] [facility] Comment on above: Performed By: #### I YUNIOR ####[facility] Tcdnvnkdeq4202 [place] [address]Dr. Slick Broderick POINT OF CARE GLUCOSEon 03-12 Glucose [Mass/Vol] 119 mg/dL Critically high 74-106 [facility] Comment on above: Performed By: #### P OCGLUC ####[facility] Tsykpyqofh7034 [place] [address]Dr. Slick Broderick Glucose [Mass/Vol] 178 mg/dL Critically high 74-106 [facility] Comment on above: Performed By: #### P OCGLUC ####[facility] Zqjfwzgrcj5613 [place] [address]Dr. Slick Broderick Glucose [Mass/Vol] 106 mg/dL Normal 74-106 [facility] Comment on above: Performed By: #### P OCGLUC ####[facility] Eusjitxkvw2766 [place] [address]Dr. Slick Broderick PROF CHEM 8 (BAS METB)on Anion gap [Moles/Vol] 9.5 mmol/L Normal [facility] Comment on above: Performed By: #### B MP ####[facility] Dboqjdyhcz5472 [place] [address]Dr. Slick Broderick Calcium [Mass/Vol] 9.5 mg/dL Normal 8.5-10.1 [facility] Comment on above: Performed By: #### B MP ####[facility] Tyzdqtggds8454 [place] [address]Dr. Slick Broderick Chloride [Moles/Vol] 98 mmol/L Normal 98-107 [facility] Comment on above: Performed By: #### B MP ####[facility] Rbbaybuuqk9[address] [place], [place] [address]Dr. Slick Broderick CO2 [Moles/Vol] 28.5 mmol/L Normal 21.0-32.0 [facility] Comment on above: Performed By: #### B MP ####[facility] Xzoddvroid6574[address] [place], [place] [address]Dr. Slick Broderick Creatinine [Mass/Vol] 1.90 mg/dL Critically high 0.55-1.02 [facility] Comment on above: Performed By: #### B MP ####[facility] Quzdeynese15[address] [place], [place] [address]Dr. Slick Broderick EGFR-AF IRAQI 31 mL/min/1.73m2 Critically low >=60 [facility] Comment on above: Performed By: #### B MP ####[facility] Grbwwdshhi05[address] [place], [place] [address]Dr. Slick Broderick EGFR-NON AF IRAQI 26 mL/min/1.73m2 Critically low >=60 [facility] Comment on above: Performed By: #### B MP ####[facility] Iwkcoptdka4275[address] [place], [place] [address]Dr. Slick Broderick Glucose [Mass/Vol] 102 mg/dL Normal 74-106 [facility] Comment on above: Performed By: #### B MP ####[facility] Whqcfgrpso327[address] [place], [place] [address]Dr. Slick Broderick Potassium [Moles/Vol] 4.0 mmol/L Normal 3.5-5.1 [facility] Comment on above: Performed By: #### B MP ####[facility] Kkivhwvipo497[address] [place], [place] [address]Dr. Slick Broderick Sodium [Moles/Vol] 132 mmol/L Critically low 136-145 [facility] Comment on above: Performed By: #### B MP ####[facility] Raoojshsax8509[address] [place], [place] [address]Dr. Slick Broderick Urea nitrogen [Mass/Vol] 56.0 mg/dL Critically high 7.0-18.0 [facility] Comment on above: Performed By: #### B MP ####[facility] Onyyovhzcb234[address] [place], [place] [address]Dr. Slick Broderick Urea nitrogen/Creatinine [Mass ratio] 29.5 mg/mg Normal [facility] Comment on above: Performed By: #### B MP ####[facility] Sickibwtpw[address] [place], [place] [address]Dr. Slick Davie T4on 03-28-2022 T4 [Mass/Vol] 4.90 ug/dL Normal 4.80-13.90 [facility] Comment on above: Performed By: #### T 4 ####[facility] Vsxayocezt4174[address] [place], [place] [address]Dr. Slick Broderick TSHon 03-28-2022 TSH 2.765 uIU/mL Normal 0.358-3.740 [facility] Comment on above: Performed By: #### T SH ####[facility] Kvreuwqplg[address] [place], [place] [address]Dr. Slick Davie TYPE AND SCREENon 03-28-2022 TYPE AND SCREEN Negative Normal [facility] Comment on above: Performed By: #### T NS ####[facility] Oyvtouyxbh01[address] [place], [place] [address]Dr. Slick Broderick UA RANDOM W/MICROSCOPICon BACTERIA NONE SEEN Normal NONE SEEN [facility] Comment on above: Performed By: #### U AMIC ####[facility] Gvhhxofzws27[address] [place] [address]Dr. Slick Broderick Bilirubin Ql (U) Negative Normal NEGATIVE [facility] Comment on above: Performed By: #### U AMIC ####[facility] Qfkuohgnxg1737[address] [place], [place] [address]Dr. Slick Broderick CAST NONE SEEN Normal NONE SEEN [facility] Comment on above: Performed By: #### U AMIC ####[facility] Kxckzgbzdf609[address] [place], [place] [address]Dr. Slick Broderick Clarity (U) CLEAR Normal CLEAR [facility] Comment on above: Performed By: #### U AMIC ####[facility] Whugtzckbl497[address] [place], [place] [address]Dr. Slick Broderick Color (U) LT. YELLOW Normal YELLOW [facility] Comment on above: Performed By: #### U AMIC ####[facility] Mvwmtymyvw9530[address] [place], [place] [address]Dr. Slick Broderick Crystals LM Nom (Urine sed) NONE SEEN Normal NONE SEEN [facility] Comment on above: Performed By: #### U AMIC ####[facility] Rmjflqwwve077[address] [place], [place] [address]Dr. Slick Broderick Epithelial cells LM Ql (Urine sed) FEW Abnormal NONE SEEN /RARE [facility] Comment on above: Performed By: #### U AMIC ####[facility] Tyxyzrafhx4767[address] [place], [place] [address]Dr. Silck Broderick Glucose Ql (U) Negative Normal NEGATIVE [facility] Comment on above: Performed By: #### U AMIC ####[facility] Sqbqgxecez17[address] [place], [place] [address]Dr. Slick Broderick Hemoglobin Ql (U) MODERATE Abnormal NEGATIVE [facility] Comment on above: Performed By: #### U AMIC ####[facility] Rlammxduyf169[address] [place], [place] [address]Dr. Slick Broderick Ketones Ql (U) Negative Normal NEGATIVE [facility] Comment on above: Performed By: #### U AMIC ####[facility] Kigiaflxma8545[address] [place], [place] [address]Dr. Slick Broderick LEUKOCYTES TRACE Abnormal NEGATIVE [facility] Comment on above: Performed By: #### U AMIC ####[facility] Hhsbjwetcz3952 [place] [address]Dr. Slick Broderick MUCOUS NONE SEEN Normal NONE SEEN [facility] Comment on above: Performed By: #### U AMIC ####[facility] Ydzjkntouu1677 [place] [address]Dr. Slick Broderick Nitrite Ql (U) Negative Normal NEGATIVE [facility] Comment on above: Performed By: #### U AMIC ####[facility] Prhowaewky4085 [place] [address]Dr. Slick Broderick pH (U) 6.0 [pH] Normal 5-9 [facility] Comment on above: Performed By: #### U AMIC ####[facility] Hykdinhmst79[address] [place], [place] [address]Dr. Slick Broderick RBC 5-10 Abnormal 0-2 [facility] Comment on above: Performed By: #### U AMIC ####[facility] Wfzkmldrjf16[address] [place], [place] [address]Dr. Slick Broderick SPEC GRAVITY <=1.005 Abnormal 1.005-<=1.0 25 [facility] Comment on above: Performed By: #### U AMIC ####[facility] Ealuhphbtb[address] [place], [place] [address]Dr. Slick Broderick UA PROTEIN Negative Normal NEGATIVE/ TRACE [facility] Comment on above: Performed By: #### U AMIC ####[facility] Dmcncvgsoe[address] [place], [place] [address]Dr. Slick Broderick Urobilinogen Qn (U) 0.2 {Hiren'U}/dL Normal 0.2 - 1. 0 [facility] Comment on above: Performed By: #### U AMIC ####[facility] Jeyyffiuqf[address] [place], [place] [address]Dr. Slick Broderick WBC 2-5 Abnormal NONE SEEN [facility] Comment on above: Performed By: #### U AMIC ####[facility] Inufgdvvkt9[address] [place], [place] [address]Dr. Slick Broderick CBC AUTO DIFFon 03-27-2022 BASO # 0.0 103/ul Normal 0.0-0.1 [facility] Comment on above: Performed By: #### C BC ####[facility] Jvcjgbmmuc50[address] [place] [address]Dr. Slick Broderick Basophils/100 WBC (Bld) 0.5 % Normal 0.2-2.0 [facility] Comment on above: Performed By: #### C BC ####[facility] Dzfwuhobks9287 [place] [address]Dr. Slick Broderick EO # 0.4 103/ul Normal 0.0-0.7 [facility] Comment on above: Performed By: #### C BC ####[facility] Riidbvjgea8150 [place] [address]Dr. Slick Broderick Eosinophils/100 WBC (Bld) 5.2 % Normal 0.9-7.0 [facility] Comment on above: Performed By: #### C BC ####[facility] Cbacofhvzz1667 [place] [address]Dr. Slick Broderick Erythrocyte distribution width (RBC) [Ratio] 13.1 % Normal 11.0-15.0 [facility] Comment on above: Performed By: #### C BC ####[facility] Wbdxiwbpvm9963 [place] [address]Dr. Slick Broderick Hematocrit (Bld) [Volume fraction] 24.7 % Critically low 36.0-48.0 [facility] Comment on above: Performed By: #### C BC ####[facility] Xhwsxjfbch0917 [place] [address]Dr. Slick Broderick Hemoglobin (Bld) [Mass/Vol] 7.9 g/dL Critically low 12.0-16.0 [facility] Comment on above: Performed By: #### C BC ####[facility] Qzrliycedt9072 [place] [address]Dr. Slick Broderick IG # 0.06 10e3/ul Critically high 0.00-0.03 [facility] Comment on above: Performed By: #### C BC ####[facility] Wwqztzyjuy[address] [place] [address]Dr. Slick Broderick IG % 0.8 % Critically high 0.0-0.5 [facility] Comment on above: Performed By: #### C BC ####[facility] Yhqhfgbsqe5207 [place] [address]Dr. Slick Broderick LYMPH # 0.9 103/ul Critically low 1.2-3.8 [facility] Comment on above: Performed By: #### C BC ####[facility] Xzyskmbybc0319 [place] [address]Dr. Slick Broderick Lymphocytes/100 WBC (Bld) 11.1 % Critically low 20.5-60.0 [facility] Comment on above: Performed By: #### C BC ####[facility] Gsjeoblvhl6756 [place] [address]Dr. Slick Broderick MANUAL DIFF REQ NO Normal [facility] Comment on above: Performed By: #### C BC ####[facility] Foqlncixlf3064 [place] [address]Dr. Slick Broderick MCH (RBC) [Entitic mass] 29.7 pg Normal 26.7-34.0 [facility] Comment on above: Performed By: #### C BC ####[facility] Riczjfjfzp9951 [place] [address]Dr. Slick Broderick MCHC (RBC) [Mass/Vol] 32.0 g/dL Normal 29.9-35.2 [facility] Comment on above: Performed By: #### C BC ####[facility] Pquxstbzzb4798 [place] [address]Dr. Slick Broderick MCV (RBC) [Entitic vol] 92.9 fL Normal 81.0-99.0 [facility] Comment on above: Performed By: #### C BC ####[facility] Ezozggihwf1279 [place] [address]Dr. Slick Broderick MONO # 0.8 103/ul Normal 0.3-0.8 [facility] Comment on above: Performed By: #### C BC ####[facility] Wogplnuyux6742 [place] [address]Dr. Slick Broderick Monocytes/100 WBC (Bld) 9.5 % Normal 1.7-12.0 [facility] Comment on above: Performed By: #### C BC ####[facility] Zxgncocdla8259 [place] [address]Dr. Slick Broderick NEUT # 5.8 103/ul Normal 1.4-6.5 [facility] Comment on above: Performed By: #### C BC ####[facility] Edqenikaxn0387 [place] [address]Dr. Slick Broderick Neutrophils/100 WBC (Bld) 72.9 % Normal 43.0-75.0 [facility] Comment on above: Performed By: #### C BC ####[facility] Qrxtsdkspy5088 [place] [address]Dr. Slick Broderick Platelet mean volume (Bld) [Entitic vol] 8.9 fL Critically low 9.5-13.5 [facility] Comment on above: Performed By: #### C BC ####[facility] Oaxrvjfvkr4257 [place] [address]Dr. Slick Broderick PLT 220 103/ul Normal 150-450 [facility] Comment on above: Performed By: #### C BC ####[facility] Hgzaakhguz9093 [place] [address]Dr. Slick Broderick RBC 2.66 106/ul Critically low 4.20-5.40 [facility] Comment on above: Performed By: #### C BC ####[facility] Vucztsfliz8300 [place] [address]Dr. Slick Broderick WBC 7.9 103/ul Normal 4.0-11.0 [facility] Comment on above: Performed By: #### C BC ####[facility] Hgbvtxsrnv1274 [place] [address]Dr. Slick Broderick OCC BLD IMMUNO SCREENon 03-12 OCCULT BLOOD Positive Abnormal NEGATIVE [facility] Comment on above: Performed By: #### O BSCRN ####[facility] Bqvmgxruwc7884 [place] [address]Dr. Slick Broderick PROF 14(COMP METB)on 03-27- 022 Albumin [Mass/Vol] 3.2 g/dL Critically low 3.4-5.0 [facility] Comment on above: Performed By: #### C MP ####[facility] Dhmiiegrfu7448 [place] [address]Dr. Slick Broderick Albumin/Globulin [Mass ratio] 0.9 {ratio} Normal [facility] Comment on above: Performed By: #### C MP ####[facility] Ynjqzmxkrb[address] [place], [place] [address]Dr. Slick Broderick ALP [Catalytic activity/Vol] 101 U/L Normal 46-116 [facility] Comment on above: Performed By: #### C MP ####[facility] Kkyixyrqyy03[address] [place], [place] [address]Dr. Slick Broderick ALT [Catalytic activity/Vol] 28 U/L Normal 14-59 [facility] Comment on above: Performed By: #### C MP ####[facility] Nofiyzocim77[address] [place], [place] [address]Dr. Slick Broderick Anion gap [Moles/Vol] 11.5 mmol/L Normal [facility] Comment on above: Performed By: #### C MP ####[facility] Mwkombdfxm738[address] [place], [place] [address]Dr. Slick Broderick AST [Catalytic activity/Vol] 21 U/L Normal 15-37 [facility] Comment on above: Performed By: #### C MP ####[facility] Tpdppousxq446[address] [place], [place] [address]Dr. Slick Broderick Bilirubin [Mass/Vol] 0.2 mg/dL Normal 0.2-1.0 [facility] Comment on above: Performed By: #### C MP ####[facility] Tlquxkljwg[address] [place], [place] [address]Dr. Slick Broderick Calcium [Mass/Vol] 9.3 mg/dL Normal 8.5-10.1 [facility] Comment on above: Performed By: #### C MP ####[facility] Yxylzuislx9236 [place] [address]Dr. Slick Broderick Chloride [Moles/Vol] 93 mmol/L Critically low 98-107 [facility] Comment on above: Performed By: #### C MP ####[facility] Sjjfdmngpl7084 [place] [address]Dr. Slick Broderick CO2 [Moles/Vol] 27.3 mmol/L Normal 21.0-32.0 [facility] Comment on above: Performed By: #### C MP ####[facility] Bmoeqddrjm3236 [place] [address]Dr. Slick Broderick Creatinine [Mass/Vol] 1.98 mg/dL Critically high 0.55-1.02 [facility] Comment on above: Performed By: #### C MP ####[facility] Vuglbkbwre[address] [place], [place] [address]Dr. Slick Davie EGFR-AF IRAQI 30 mL/min/1.73m2 Critically low >=60 [facility] Comment on above: Performed By: #### C MP ####[facility] Fqtdckhzpm[address] [place], [place] [address]Dr. Slick Broderick EGFR-NON AF IRAQI 25 mL/min/1.73m2 Critically low >=60 [facility] Comment on above: Performed By: #### C MP ####[facility] Bvxzgmadwk0971 [place] [address]Dr. Slick Broderick Globulin (S) [Mass/Vol] 3.6 g/dL Normal [facility] Comment on above: Performed By: #### C MP ####[facility] Vmlqwnvkpv5386 [place] [address]Dr. Slick Broderick Glucose [Mass/Vol] 123 mg/dL Critically high 74-106 [facility] Comment on above: Performed By: #### C MP ####[facility] Tqtrwvzjyb[address] [place], [place] [address]Dr. Slick Broderick Potassium [Moles/Vol] 3.8 mmol/L Normal 3.5-5.1 [facility] Comment on above: Performed By: #### C MP ####[facility] Lefescfmya8205 [place] [address]Dr. Slick Broderick Protein [Mass/Vol] 6.8 g/dL Normal 6.4-8.2 [facility] Comment on above: Performed By: #### C MP ####[facility] Xoeqxnsigl7042 [place] [address]Dr. Slick Broderick Sodium [Moles/Vol] 128 mmol/L Critically low 136-145 [facility] Comment on above: Performed By: #### C MP ####[facility] Pcxksvrxth0728 [place] [address]Dr. Slick Broderick Urea nitrogen [Mass/Vol] 64.0 mg/dL Critically high 7.0-18.0 [facility] Comment on above: Performed By: #### C MP ####[facility] Jwqmjcckxd5178 [place] [address]Dr. Slick Broderick Urea nitrogen/Creatinine [Mass ratio] 32.3 mg/mg Normal [facility] Comment on above: Performed By: #### C MP ####[facility] Jswjsptmyg5784 [place] [address]Dr. Slick Broderick TROPONIN, HIGH SENSITIVITYon 03-27-2022 HSTROP 9.0 pg/mL Normal 4.0-51.3 [facility] Comment on above: Result Comment: CUT- OFF POINTS HAVE BEEN ESTABLISHED BASED ON THE FOURTH UNIVERSAL DEFINITIONS OF MYOCARDIALINFARCTION. THE UPPER REFERENCE LIMIT (URL) OF TROPONIN, DEFINED THE 99TH PERCENTILE OFcTnI DISTRIBUTION IN A REFERENCE POPULATION, HAS BEEN CONFIRMED THE DECISION THRESHOLDFOR VA DIAGNOSIS. Performed By: #### H STROPN ####[facility] Fxjhlgzphb[address] [place], [place] [address]Dr. Slick Broderick Progress Noteson 03-24-2022 [employer] Supervisor Authentication Interface Message Text 1:32 AM EMERGENCY TRIAGE, TREAT AND TRANSPORT (ET3) DOCUMENTATION OF TELEHEALTH VISIT Date / Time: 03/24/2022 / 1:32 AM Name: Linda Nascimento : 1950 SSN: [id number] EMS Agency: [facility] [] Verbal consent obtained [x] [...] Completed by: Chidi Conte MD Normal [facility] [employer] T4, T3U, FTI LABCORPon 02-12 Free Thyroxine Index 2.3 Normal 1.2-4.9 [facility] Comment on above: Performed By: #### T HYLC ####[facility] Xdukeazwam0459 [place] [id number]. Slick Broderick T3 Uptake 31 % Normal 24-39 [facility] Comment on above: Performed By: #### T HYLC ####[facility] Memfbpyrge1169 [place], [place] [address]Bb. Slick Broderick T4 [Mass/Vol] 7.4 ug/dL Normal 4.5-12.0 [facility] Comment on above: Performed By: #### T HYLC ####[facility] Pjwqzywhup4499 [place] [address]Dr. Slick Broderick VIT D 25-OH LABCORPon 2021 Vitamin D, 25-Hydroxy 58.7 ng/mL Normal 30.0-100.0 [facility] Comment on above: Result Comment: Karla min D deficiency has been defined by the [place] ofMedicine and an Endocrine Society practice guideline as alevel of serum 25-OH vitamin D less than 20 ng/mL (1,2).The Endocrine Society went on to further define vitamin Dinsufficiency as a level between 21 and 29 ng/mL (2).1. IOM ([place] of [employer]). 2010. Dietary reference intakes for calcium and D. [place]: The National Academies Press.2. Maryam MF, Franklin PENA, Ángela SCHAEFER, et al. Evaluation, treatment, and prevention of vitamin D deficiency: an Endocrine Society clinical practice guideline. JCEM. 2010; 96(7):1911-30. Performed By: #### V ITADLC ####[facility] Okmtyzdkct2793 [place] [address]Dr. Slick Broderick CBC AUTO DIFFon 02-11-2022 BASO # 0.0 103/ul Normal 0.0-0.1 [facility] Comment on above: Performed By: #### C BC ####[facility] Clcvkbmpkp0055 [place] [address]Dr. Slick Broderick Basophils/100 WBC (Bld) 0.6 % Normal 0.2-2.0 [facility] Comment on above: Performed By: #### C BC ####[facility] Qkyztsvpwq4336 [place] [address]Dr. Slick Broderick EO # 0.3 103/ul Normal 0.0-0.7 [facility] Comment on above: Performed By: #### C BC ####[facility] Hdxpccoanh0172 [place] [address]Dr. Slick Broderick Eosinophils/100 WBC (Bld) 4.6 % Normal 0.9-7.0 [facility] Comment on above: Performed By: #### C BC ####[facility] Uvfgjjzdyk7962 [place] [address]Dr. Slick Broderick Erythrocyte distribution width (RBC) [Ratio] 14.0 % Normal 11.0-15.0 [facility] Comment on above: Performed By: #### C BC ####[facility] Jkrwylllap6594 [place] [address]Dr. Slick Broderick Hematocrit (Bld) [Volume fraction] 28.4 % Critically low 36.0-48.0 [facility] Comment on above: Performed By: #### C BC ####[facility] Ldabaoqmrd[address] [place], [place] [address]Dr. Slick Broderick Hemoglobin (Bld) [Mass/Vol] 9.3 g/dL Critically low 12.0-16.0 [facility] Comment on above: Performed By: #### C BC ####[facility] Ybkxjeuzex78[address] [place], [place] [address]Dr. Slick Broderick IG # 0.03 10e3/ul Normal 0.00-0.03 [facility] Comment on above: Performed By: #### C BC ####[facility] Zltxftmwji5622[address] [place], [place] [address]Dr. Meaganwendie Broderick IG % 0.5 % Normal 0.0-0.5 [facility] Comment on above: Performed By: #### C BC ####[facility] Fvcrfjvhlh646[address] [place], [place] [address]Dr. Slick Borderick LYMPH # 0.6 103/ul Critically low 1.2-3.8 [facility] Comment on above: Performed By: #### C BC ####[facility] Fdzncishbi85[address] [place], [place] [id number]. Meaganwendie Broderick Lymphocytes/100 WBC (Bld) 9.5 % Critically low 20.5-60.0 [facility] Comment on above: Performed By: #### C BC ####[facility] Nywwpprbfr22[address] [place], [place] [address]Dr. Meaganwendie Broderick MANUAL DIFF REQ NO Normal [facility] Comment on above: Performed By: #### C BC ####[facility] Gkwhfripvf[address] [place] [address]Hi. Slick Broderick MCH (RBC) [Entitic mass] 30.5 pg Normal 26.7-34.0 [facility] Comment on above: Performed By: #### C BC ####[facility] Rrzzjksfut8768 [place] [address]Dr. Slick Broderick MCHC (RBC) [Mass/Vol] 32.7 g/dL Normal 29.9-35.2 [facility] Comment on above: Performed By: #### C BC ####[facility] Runhtqplgm40[address] [place], [place] [address]Dr. Slick Broderick MCV (RBC) [Entitic vol] 93.1 fL Normal 81.0-99.0 [facility] Comment on above: Performed By: #### C BC ####[facility] Lpzkcffxhr604[address] [place], [place] [address]Dr. Slick Broderick MONO # 0.6 103/ul Normal 0.3-0.8 [facility] Comment on above: Performed By: #### C BC ####[facility] Nyksfkzczz33[address] [place], [place] [address]Dr. Slick Broderick Monocytes/100 WBC (Bld) 8.4 % Normal 1.7-12.0 [facility] Comment on above: Performed By: #### C BC ####[facility] Dsgblqhwmp5[address] [place], [place] [address]Dr. Slick Broderick NEUT # 5.0 103/ul Normal 1.4-6.5 [facility] Comment on above: Performed By: #### C BC ####[facility] Bnupqsibxo57[address] [place], [place] [address]Dr. Slick Broderick Neutrophils/100 WBC (Bld) 76.4 % Critically high 43.0-75.0 [facility] Comment on above: Performed By: #### C BC ####[facility] Hzdigsaynb4487[address] [place], [place] [address]Dr. Slick Broderick Platelet mean volume (Bld) [Entitic vol] 9.3 fL Critically low 9.5-13.5 [facility] Comment on above: Performed By: #### C BC ####[facility] Ozneovdija6941 [place] [address]Dr. Slick Broderick PLT 192 103/ul Normal 150-450 [facility] Comment on above: Performed By: #### C BC ####[facility] Sehkagoyrs0563 [place], [place] [address]Zq. Slick Broderick RBC 3.05 106/ul Critically low 4.20-5.40 [facility] Comment on above: Performed By: #### C BC ####[facility] Mqcdgeowxx3831 [place] [address]Dr. Slick Broderick WBC 6.6 103/ul Normal 4.0-11.0 [facility] Comment on above: Performed By: #### C BC ####[facility] Pbndgpmuqj6106 [place] [address]Dr. Slick Broderick IRONon 02-11-2022 Iron [Mass/Vol] 62.0 ug/dL Normal 50.0-170.0 [facility] Comment on above: Performed By: #### I YUNIOR ####[facility] Zefxrnlbng6034 [place] [address]Dr. Slick Broderick LIPID PROFILEon 02-11-2022 CHOL-HDL RATIO NORM SEE BELOW Normal [facility] Comment on above: Result Comment: 3.3 - 4.4 LOW RISK 4.4 - 7.1 AVERAGE RISK 7.1 - 11.0 MODERATE RISK >11.0 HIGH RISK Performed By: #### C MP, LIPID, TSH ####[facility] Rludxtsbbi7687 [place] [address]Dr. Slick Broderick Cholesterol [Mass/Vol] 204 mg/dL Critically high <=200 [facility] Comment on above: Performed By: #### C MP, LIPID, TSH ####[facility] Rcvxdpfkfu7270 [place] [address]Dr. Slick Broderick Cholesterol in HDL [Mass/Vol] 53 mg/dL Normal 40-60 [facility] Comment on above: Performed By: #### C MP, LIPID, TSH ####[facility] Aknfuwivwv0175 [place] [address]Dr. Slick Broderick Cholesterol in LDL [Mass/Vol] 134.0 mg/dL Normal [facility] Comment on above: Performed By: #### C MP, LIPID, TSH ####[facility] Wqrhdyttlb0202 [place] [address]Dr. Slick Broderick Cholesterol.total/Corinne sterol in HDL [Mass ratio] 3.8 {ratio} Normal [facility] Comment on above: Performed By: #### C MP, LIPID, TSH ####[facility] Krwayebbmk6264 [place] [address]Dr. Slick Broderick HDL NORMAL > or = 60 mg/dl - LOW CARDIOVASCULAR RISK <40 mg/dl - HIGH CARDIOVASCULAR RISK Normal [facility] Comment on above: Performed By: #### C MP, LIPID, TSH ####[facility] Jfysydpigl5500 [place] [address]Dr. Slick Broderick LDL CALC NORMAL SEE BELOW Normal [facility] Comment on above: Result Comment: <100 mg/dl OPTIMAL 100 - 129 mg/dl NEAR OR ABOVE OPTIMAL 130 - 159 mg/dl BORDERLINE HIGH 160 - 189 mg/dl HIGH >190 mg/dl VERY HIGH Performed By: #### C MP, LIPID, TSH ####[facility] Pyawhprchw8228 [place] [address]Dr. Slick Broderick Triglyceride [Mass/Vol] 85 mg/dL Normal <=150 T [facility] Comment on above: Performed By: #### C MP, LIPID, TSH ####[facility] Dtvwpdumnr0319 [place] [address]Dr. Slick Broderick VLDL CALC 17.0 mg/dL Normal [facility] Comment on above: Performed By: #### C MP, LIPID, TSH ####[facility] Ovnoiqsxqr7441 [place] [address]Dr. Slick Broderick PROF 14(COMP METB)on 022 Albumin [Mass/Vol] 3.5 g/dL Normal 3.4-5.0 [facility] Comment on above: Performed By: #### C MP, LIPID, TSH ####[facility] Tpsmxaxktf9396 [place] [address]Dr. Slick Broderick Albumin/Globulin [Mass ratio] 0.9 {ratio} Normal [facility] Comment on above: Performed By: #### C MP, LIPID, TSH ####[facility] Jrgegluvnt1953 [place] [address]Dr. Slick Broderick ALP [Catalytic activity/Vol] 93 U/L Normal 46-116 [facility] Comment on above: Performed By: #### C MP, LIPID, TSH ####[facility] Qngsthlcll3026 [place] [address]Dr. Slick Broderick ALT [Catalytic activity/Vol] 21 U/L Normal 14-59 [facility] Comment on above: Performed By: #### C MP, LIPID, TSH ####[facility] Zoqnwitsow9172 [place] [address]Dr. Slick Broderick Anion gap [Moles/Vol] 13.7 mmol/L Normal [facility] Comment on above: Performed By: #### C MP, LIPID, TSH ####[facility] Zljxrygvjd1849 [place] [address]Dr. Slick Broderick AST [Catalytic activity/Vol] 13 U/L Critically low 15-37 [facility] Comment on above: Performed By: #### C MP, LIPID, TSH ####[facility] Fmsrqkkoda0587 [place] [address]Dr. Slick Broderick Bilirubin [Mass/Vol] 0.4 mg/dL Normal 0.2-1.0 [facility] Comment on above: Performed By: #### C MP, LIPID, TSH ####[facility] Jfxgslqdfv9428 [place] [address]Dr. Slick Broderick Calcium [Mass/Vol] 9.2 mg/dL Normal 8.5-10.1 [facility] Comment on above: Performed By: #### C MP, LIPID, TSH ####[facility] Ggyhpuqthi9944 [place] [address]Dr. Slick Broderick Chloride [Moles/Vol] 96 mmol/L Critically low 98-107 [facility] Comment on above: Performed By: #### C MP, LIPID, TSH ####[facility] Rqbzdcjiuq5228 [place] [address]Dr. Slick Broderick CO2 [Moles/Vol] 27.8 mmol/L Normal 21.0-32.0 [facility] Comment on above: Performed By: #### C MP, LIPID, TSH ####[facility] Srrbyyloca3109 [place] [address]Dr. Slick Broderick Creatinine [Mass/Vol] 1.52 mg/dL Critically high 0.55-1.02 [facility] Comment on above: Performed By: #### C MP, LIPID, TSH ####[facility] Qpeevyzxtz0745 [place] [address]Dr. Slick Broderick EGFR-AF IRAQI 41 mL/min/1.73m2 Critically low >=60 [facility] Comment on above: Performed By: #### C MP, LIPID, TSH ####[facility] Wnpdifmqga1465 [place] [address]Dr. Slick Broderick EGFR-NON AF IRAQI 34 mL/min/1.73m2 Critically low >=60 [facility] Comment on above: Performed By: #### C MP, LIPID, TSH ####[facility] [address]cenvyxyra[address] [place] [address]Dr. Slick Broderick Globulin (S) [Mass/Vol] 3.7 g/dL Normal [facility] Comment on above: Performed By: #### C MP, LIPID, TSH ####[facility] Yzsemxzqzo39[address] [place] [address]Dr. Slick Broderick Glucose [Mass/Vol] 96 mg/dL Normal 74-106 [facility] Comment on above: Performed By: #### C MP, LIPID, TSH ####[facility] Kqovyfmecu[address] [place] [address]Dr. Slick Broderick Potassium [Moles/Vol] 4.5 mmol/L Normal 3.5-5.1 [facility] Comment on above: Performed By: #### C MP, LIPID, TSH ####[facility] Jmmawhnwbu5273 [place] [address]Dr. Slick Broderick Protein [Mass/Vol] 7.2 g/dL Normal 6.4-8.2 [facility] Comment on above: Performed By: #### C MP, LIPID, TSH ####[facility] Heezvaaeod[address] [place], [place] [address]Dr. Slick Broderick Sodium [Moles/Vol] 133 mmol/L Critically low 136-145 [facility] Comment on above: Performed By: #### C MP, LIPID, TSH ####[facility] Yekfykajvr[address] [place] [address]Dr. Slick Broderick Urea nitrogen [Mass/Vol] 37.0 mg/dL Critically high 7.0-18.0 [facility] Comment on above: Performed By: #### C MP, LIPID, TSH ####[facility] Aieyfbwnwj[address] [place], [place] [address]Dr. Slick Broderick Urea nitrogen/Creatinine [Mass ratio] 24.3 mg/mg Normal [facility] Comment on above: Performed By: #### C MP, LIPID, TSH ####[facility] Fhmifyqpdp45[address] [place], [place] [address]Dr. Slick Broderick TSHon 02-11-2022 TSH 3.993 uIU/mL Critically high 0.358-3.740 [facility] Comment on above: Performed By: #### C MP, LIPID, TSH ####[facility] Iocslpbvrh[address] [place], [place] [address]Dr. Slick Broderick PRBC LEUKOREDUCEDon 12-18-19 PRBC LEUKOREDUCED Normal [facility] Comment on above: Performed By: #### P RBC ####[facility] Hwveyxwhoh[address] [place], [place] [address]Dr. Slick Broderick PRBC LEUKOREDUCED Cross Match Result Compatible Unit Blood Type O Pos Unit Number [id number] Status Information Transfused Product ID Red Blood Cells Product Code [id number] [facility] Comment on above: Performed By: #### P RBC ####[facility] Qjmcffntnz98[address] [place], [place] [address]Dr. Slick Broderick H PYLORI ANTIBODY IGGon 07 H. PYLORI IGG ABS 0.18 Index Value Normal 0.00-0.79 [facility] Comment on above: Result Comment: Nega tive <0.80 Equivocal 0.80 - 0.89 Positive >0.89 Performed By: #### H PYLLC ####[facility] Ubzidpdjep[address] [place], [place] [address]Dr. Slick Broderick BNPon 12-14-2021 Natriuretic peptide B (Bld) [Mass/Vol] 846.0 pg/mL Normal <=900.0 [facility] Comment on above: Performed By: #### C MP, BNP ####[facility] Bwjnuordhm[address] [place], [place] [address]Dr. Slick Broderick CBC AUTO DIFFon 12-14-2021 BASO # 0.1 103/ul Normal 0.0-0.1 [facility] Comment on above: Performed By: #### C BC ####[facility] Wuazdqqmya7[address] [place], [place] [address]Dr. Slick Broderick Basophils/100 WBC (Bld) 0.7 % Normal 0.2-2.0 [facility] Comment on above: Performed By: #### C BC ####[facility] Itgptddoga[address] [place], [place] [address]Dr. Slick Broderick EO # 0.3 103/ul Normal 0.0-0.7 [facility] Comment on above: Performed By: #### C BC ####[facility] Jgevcldeyg6640[address] [place], [place] [address]Dr. Slick Broderick Eosinophils/100 WBC (Bld) 4.6 % Normal 0.9-7.0 [facility] Comment on above: Performed By: #### C BC ####[facility] Uxjytflpps[address] [place], [place] [address]Dr. Slick Broderick Erythrocyte distribution width (RBC) [Ratio] 20.0 % Critically high 11.0-15.0 [facility] Comment on above: Performed By: #### C BC ####[facility] Nvunbbckoe67[address] [place], [place] [address]Dr. Slick Broderick Hematocrit (Bld) [Volume fraction] 29.1 % Critically low 36.0-48.0 [facility] Comment on above: Performed By: #### C BC ####[facility] Ifsmglmhbq1631 [place] [address]DrEmma Slick Broderick Hemoglobin (Bld) [Mass/Vol] 9.1 g/dL Critically low 12.0-16.0 [facility] Comment on above: Performed By: #### C BC ####[facility] Sehuaerqam1771 [place] [address]DrEmma Slick Broderick IG # 0.06 10e3/ul Critically high 0.00-0.03 [facility] Comment on above: Performed By: #### C BC ####[facility] Eogbtjxozn3525 [place] [address]DrEmma Slick Broderick IG % 0.9 % Critically high 0.0-0.5 [facility] Comment on above: Performed By: #### C BC ####[facility] Pjofhxsokh4336 [place] [address]DrEmma Slick Davie LYMPH # 0.8 103/ul Critically low 1.2-3.8 [facility] Comment on above: Performed By: #### C BC ####[facility] Qowwwoimwe2686 [place] [address]DrEmma Slick Davie Lymphocytes/100 WBC (Bld) 11.2 % Critically low 20.5-60.0 [facility] Comment on above: Performed By: #### C BC ####[facility] Nqbjzliapt6090 [place] [address]DrEmma Slick Davie MANUAL DIFF REQ NO Normal [facility] Comment on above: Performed By: #### C BC ####[facility] Vncqpqtpnv24[address] [place] [address]DrEmma Slick Davie MCH (RBC) [Entitic mass] 30.5 pg Normal 26.7-34.0 [facility] Comment on above: Performed By: #### C BC ####[facility] Yvuaqmybrj4854 [place] [address]DrEmma Slick Davie MCHC (RBC) [Mass/Vol] 31.3 g/dL Normal 29.9-35.2 [facility] Comment on above: Performed By: #### C BC ####[facility] Qfuknxzycg6076 [place] [address]DrEmma Slick Broderick MCV (RBC) [Entitic vol] 97.7 fL Normal 81.0-99.0 [facility] Comment on above: Performed By: #### C BC ####[facility] Otxrzbbonb3437 [place] [address]DrEmma Slick Davie MONO # 0.7 103/ul Normal 0.3-0.8 [facility] Comment on above: Performed By: #### C BC ####[facility] Dmbgpmiisd5138 [place] [address]DrEmma Meaganwendie Broderick Monocytes/100 WBC (Bld) 9.7 % Normal 1.7-12.0 [facility] Comment on above: Performed By: #### C BC ####[facility] Ytcvmypmme[address] [place], [place] [address]Dr. Slick Broderick NEUT # 4.9 103/ul Normal 1.4-6.5 [facility] Comment on above: Performed By: #### C BC ####[facility] Ryoglxvddx[address] [place], [place] [address]DrEmma Slick Davie Neutrophils/100 WBC (Bld) 72.9 % Normal 43.0-75.0 [facility] Comment on above: Performed By: #### C BC ####[facility] Xsuzhbdpki10[address] [place], [place] [address]DrEmma Slick Davie Platelet mean volume (Bld) [Entitic vol] 8.9 fL Critically low 9.5-13.5 [facility] Comment on above: Performed By: #### C BC ####[facility] Imhmoaegdl33[address] [place], [place] [address]Dr. Meaganwendie Davie PLT 239 103/ul Normal 150-450 [facility] Comment on above: Performed By: #### C BC ####[facility] Abunumufcw7720 [place] [address]DrEmma Broderick RBC 2.98 106/ul Critically low 4.20-5.40 [facility] Comment on above: Performed By: #### C BC ####[facility] Jvkpyggauz9919 [place] [address]Dr. Slick Broderick WBC 6.8 103/ul Normal 4.0-11.0 [facility] Comment on above: Performed By: #### C BC ####[facility] Udnqiwsrji8053 [place] [address]Dr. Slick Broderick BASO # 0.1 103/ul Normal 0.0-0.1 [facility] Comment on above: Performed By: #### C BC ####[facility] Qmdodosvdw0813 [place] [address]Dr. Slick Broderick Basophils/100 WBC (Bld) 0.9 % Normal 0.2-2.0 [facility] Comment on above: Performed By: #### C BC ####[facility] Spivvbbujs09[address] [place], [place] [address]Dr. Slick Broderick EO # 0.3 103/ul Normal 0.0-0.7 [facility] Comment on above: Performed By: #### C BC ####[facility] Nxbxaxbmms5913 [place] [address]Dr. Slick Broderick Eosinophils/100 WBC (Bld) 4.9 % Normal 0.9-7.0 [facility] Comment on above: Performed By: #### C BC ####[facility] Fmcxdxgiwd7724 [place] [address]Dr. Slick Broderick Erythrocyte distribution width (RBC) [Ratio] 20.3 % Critically high 11.0-15.0 [facility] Comment on above: Performed By: #### C BC ####[facility] Zicqedmfhf6594 [place] [address]Dr. Slick Broderick Hematocrit (Bld) [Volume fraction] 27.6 % Critically low 36.0-48.0 [facility] Comment on above: Performed By: #### C BC ####[facility] Oyvogmbtdg[address] [place], [place] [id number]. Slick Broderick Hemoglobin (Bld) [Mass/Vol] 8.7 g/dL Critically low 12.0-16.0 [facility] Comment on above: Performed By: #### C BC ####[facility] Dhjumioeam6233 [place] [address]DrEmma Broderick IG # 0.05 10e3/ul Critically high 0.00-0.03 [facility] Comment on above: Performed By: #### C BC ####[facility] Fvipitclko9943 [place] [address]DrEmma Broderick IG % 0.7 % Critically high 0.0-0.5 [facility] Comment on above: Performed By: #### C BC ####[facility] Aeqttfqjsi5042 [place] [address]DrEmma Broderick LYMPH # 0.9 103/ul Critically low 1.2-3.8 [facility] Comment on above: Performed By: #### C BC ####[facility] Khwfgyqawr6759 [place] [address]DrEmma Broderick Lymphocytes/100 WBC (Bld) 13.1 % Critically low 20.5-60.0 [facility] Comment on above: Performed By: #### C BC ####[facility] Qxjhtjjwsp0046 [place] [address]DrEmma Broderick MANUAL DIFF REQ NO Normal [facility] Comment on above: Performed By: #### C BC ####[facility] Gjdgznjajb1749 [place] [address]DrEmma Broderick MCH (RBC) [Entitic mass] 31.0 pg Normal 26.7-34.0 [facility] Comment on above: Performed By: #### C BC ####[facility] Liigflvckt0043 [place] [address]DrEmma Broderick MCHC (RBC) [Mass/Vol] 31.5 g/dL Normal 29.9-35.2 [facility] Comment on above: Performed By: #### C BC ####[facility] Fxqewehfbw3350 [place] [address]DrEmma Broderick MCV (RBC) [Entitic vol] 98.2 fL Normal 81.0-99.0 [facility] Comment on above: Performed By: #### C BC ####[facility] Rcmeiwpajo4521 [place] [address]DrEmma Rhodeswendie Davie MONO # 0.8 103/ul Normal 0.3-0.8 [facility] Comment on above: Performed By: #### C BC ####[facility] Uqjzxxullf6120 [place] [address]DrEmma Broderick Monocytes/100 WBC (Bld) 11.4 % Normal 1.7-12.0 [facility] Comment on above: Performed By: #### C BC ####[facility] Tuejzorxmo874[address] [place], [place] [address]DrEmma Rhodeswendie Davie NEUT # 4.8 103/ul Normal 1.4-6.5 [facility] Comment on above: Performed By: #### C BC ####[facility] Nzzbbwmscm428[address] [place], [place] [address]DrEmma Broderick Neutrophils/100 WBC (Bld) 69.0 % Normal 43.0-75.0 [facility] Comment on above: Performed By: #### C BC ####[facility] Ebjqhrrfja36[address] [place], [place] [address]DrEmma Broderick Platelet mean volume (Bld) [Entitic vol] 9.3 fL Critically low 9.5-13.5 [facility] Comment on above: Performed By: #### C BC ####[facility] Kdscvfhgew5560 [place] [address]DrEmma Broderick PLT 229 103/ul Normal 150-450 [facility] Comment on above: Performed By: #### C BC ####[facility] Bmezncadmy3135 [place] [address]DrEmma Broderick RBC 2.81 106/ul Critically low 4.20-5.40 [facility] Comment on above: Performed By: #### C BC ####[facility] Irfdflknrw2310 [place] [address]DrEmma Broderick WBC 7.0 103/ul Normal 4.0-11.0 [facility] Comment on above: Performed By: #### C BC ####[facility] Jgxxdeneel3797 [place] [address]Dr. Slick Broderick POINT OF CARE GLUCOSEon Glucose [Mass/Vol] 255 mg/dL Critically high 74-106 [facility] Comment on above: Performed By: #### P OCGLUC ####[facility] Rourqptkba18[address] [place], [place] [address]Dr. Slick Broderick PROF 14(COMP METB)on 022 Albumin [Mass/Vol] 2.3 g/dL Critically low 3.4-5.0 [facility] Comment on above: Performed By: #### C MP, BNP ####[facility] Jtsmokofns9[address] [place], [place] [address]Dr. Slick Broderick Albumin/Globulin [Mass ratio] 0.6 {ratio} Normal [facility] Comment on above: Performed By: #### C MP, BNP ####[facility] Bniykyeyft47[address] [place], [place] [address]Dr. Slick Broderick ALP [Catalytic activity/Vol] 94 U/L Normal 46-116 [facility] Comment on above: Performed By: #### C MP, BNP ####[facility] Whxerxawqz5643 [place] [address]Dr. Slick Broderick ALT [Catalytic activity/Vol] 17 U/L Normal 14-59 [facility] Comment on above: Performed By: #### C MP, BNP ####[facility] Earagvsofv7556 [place] [address]Dr. Slick Broderick Anion gap [Moles/Vol] 11.6 mmol/L Normal [facility] Comment on above: Performed By: #### C MP, BNP ####[facility] Fxisqicxyb68[address] [place], [place] [address]Dr. Slick Broderick AST [Catalytic activity/Vol] 13 U/L Critically low 15-37 [facility] Comment on above: Performed By: #### C MP, BNP ####[facility] Lmtdfpwsgy113[address] [place], [place] [address]Dr. Slick Broderick Bilirubin [Mass/Vol] 0.3 mg/dL Normal 0.2-1.0 [facility] Comment on above: Performed By: #### C MP, BNP ####[facility] Mhannvtmlf9043 [place] [address]Dr. Slick Broderick Calcium [Mass/Vol] 7.9 mg/dL Critically low 8.5-10.1 [facility] Comment on above: Performed By: #### C MP, BNP ####[facility] Yyumxrcdtb3514 [place] [address]Dr. Slick Broderick Chloride [Moles/Vol] 104 mmol/L Normal 98-107 [facility] Comment on above: Performed By: #### C MP, BNP ####[facility] Cmlbxukcah8378 [place] [address]Dr. Slick Broderick CO2 [Moles/Vol] 25.1 mmol/L Normal 21.0-32.0 [facility] Comment on above: Performed By: #### C MP, BNP ####[facility] Ahjbtemnzy7990 [place] [address]Dr. Slick Broderick Creatinine [Mass/Vol] 1.64 mg/dL Critically high 0.55-1.02 [facility] Comment on above: Performed By: #### C MP, BNP ####[facility] Pcxohnrhph9920 [place] [address]Dr. Slick Broderick EGFR-AF IRAQI 37 mL/min/1.73m2 Critically low >=60 [facility] Comment on above: Performed By: #### C MP, BNP ####[facility] Gesiakhczh7476 [place] [address]Dr. Slick Broderick EGFR-NON AF IRAQI 31 mL/min/1.73m2 Critically low >=60 [facility] Comment on above: Performed By: #### C MP, BNP ####[facility] Bgcletonph7646 [place] [address]Dr. Slick Broderick Globulin (S) [Mass/Vol] 3.6 g/dL Normal T [facility] Comment on above: Performed By: #### C MP, BNP ####[facility] Fpxcpiyrhf3367 [place] [address]Dr. Slick Broderick Glucose [Mass/Vol] 100 mg/dL Normal 74-106 [facility] Comment on above: Performed By: #### C MP, BNP ####[facility] Vcbntokgub4801 [place] [address]Dr. Slick Broderick Potassium [Moles/Vol] 4.7 mmol/L Normal 3.5-5.1 [facility] Comment on above: Performed By: #### C MP, BNP ####[facility] Qlwalcaagc14[address] [place], [place] [address]Dr. Slick Broderick Protein [Mass/Vol] 5.9 g/dL Critically low 6.4-8.2 [facility] Comment on above: Performed By: #### C MP, BNP ####[facility] Ldggrfzwcr63[address] [place], [place] [address]Dr. Slick Broderick Sodium [Moles/Vol] 136 mmol/L Normal 136-145 [facility] Comment on above: Performed By: #### C MP, BNP ####[facility] Gyxosiqrqu2620[address] [place], [place] [address]Dr. Slick Broderick Urea nitrogen [Mass/Vol] 27.0 mg/dL Critically high 7.0-18.0 [facility] Comment on above: Performed By: #### C MP, BNP ####[facility] Kghhflcztt319[address] [place], [place] [address]Dr. Slick Broderick Urea nitrogen/Creatinine [Mass ratio] 16.5 mg/mg Normal [facility] Comment on above: Performed By: #### C MP, BNP ####[facility] Qwocyygqwq6588[address] [place], [place] [address]Dr. Slick Davie CBC AUTO DIFFon 12-13-2021 BASO # 0.0 103/ul Normal 0.0-0.1 [facility] Comment on above: Performed By: #### C BC ####[facility] Xvktlqkgie3035[address] [place], [place] [address]Dr. Slick Davie Basophils/100 WBC (Bld) 0.5 % Normal 0.2-2.0 [facility] Comment on above: Performed By: #### C BC ####[facility] Fweuwcskqg7321 [place] [address]DrEmma Broderick EO # 0.3 103/ul Normal 0.0-0.7 [facility] Comment on above: Performed By: #### C BC ####[facility] Tmirrgrzgj5201[address] [place], [place] [address]DrEmma Broderick Eosinophils/100 WBC (Bld) 4.4 % Normal 0.9-7.0 [facility] Comment on above: Performed By: #### C BC ####[facility] Fxsnkasgyf2479[address] [place], [place] [address]DrEmma Broderick Erythrocyte distribution width (RBC) [Ratio] 20.5 % Critically high 11.0-15.0 [facility] Comment on above: Performed By: #### C BC ####[facility] Pgsddbemlk5[address] [place], [place] [address]DrEmma Broderick Hematocrit (Bld) [Volume fraction] 29.5 % Critically low 36.0-48.0 [facility] Comment on above: Performed By: #### C BC ####[facility] Ugsucukcuy22[address] [place], [place] [address]DrEmma Broderick Hemoglobin (Bld) [Mass/Vol] 9.3 g/dL Critically low 12.0-16.0 [facility] Comment on above: Result Comment: post transfusion Performed By: #### C BC ####[facility] Utcnxryjae4[address] [place], [place] [address]DrEmma Broderick IG # 0.07 10e3/ul Critically high 0.00-0.03 [facility] Comment on above: Performed By: #### C BC ####[facility] Upbuopzuvt11[address] [place], [place] [address]DrEmma Broderick IG % 0.9 % Critically high 0.0-0.5 [facility] Comment on above: Performed By: #### C BC ####[facility] Uyvopsaflr1830[address] [place], [place] [address]Dr. Slick Broderick LYMPH # 0.9 103/ul Critically low 1.2-3.8 [facility] Comment on above: Performed By: #### C BC ####[facility] Kfaeaifcyg8728 [place] [address]Dr. Slick Broderick Lymphocytes/100 WBC (Bld) 11.5 % Critically low 20.5-60.0 [facility] Comment on above: Performed By: #### C BC ####[facility] Fdrlwygbxn7804 [place] [address]Dr. Slick Broderick MANUAL DIFF REQ NO Normal [facility] Comment on above: Performed By: #### C BC ####[facility] Uykkveicdq8537 [place] [address]Dr. Slick Broderick MCH (RBC) [Entitic mass] 30.9 pg Normal 26.7-34.0 [facility] Comment on above: Performed By: #### C BC ####[facility] Itdwvnvxry906[address] [place], [place] [address]Dr. Slick Broderick MCHC (RBC) [Mass/Vol] 31.5 g/dL Normal 29.9-35.2 [facility] Comment on above: Performed By: #### C BC ####[facility] Mejdlvkzds[address] [place], [place] [address]Dr. Slick Broderick MCV (RBC) [Entitic vol] 98.0 fL Normal 81.0-99.0 [facility] Comment on above: Performed By: #### C BC ####[facility] Uubtsmyoyo6069 [place] [address]Dr. Slick Broderick MONO # 0.6 103/ul Normal 0.3-0.8 [facility] Comment on above: Performed By: #### C BC ####[facility] Fhttydtgix513[address] [place], [place] [address]Dr. Slick Broderick Monocytes/100 WBC (Bld) 8.6 % Normal 1.7-12.0 [facility] Comment on above: Performed By: #### C BC ####[facility] Msxcgcshda4[address] [place], [place] [address]Dr. Slick Broderick NEUT # 5.5 103/ul Normal 1.4-6.5 [facility] Comment on above: Performed By: #### C BC ####[facility] Rtoqhuehyk3831 [place] [address]Dr. Slick Broderick Neutrophils/100 WBC (Bld) 74.1 % Normal 43.0-75.0 [facility] Comment on above: Performed By: #### C BC ####[facility] Eludwaxtto2033 [place] [address]Dr. Slick Broderick Platelet mean volume (Bld) [Entitic vol] 9.0 fL Critically low 9.5-13.5 [facility] Comment on above: Performed By: #### C BC ####[facility] Qajfvrkyyc7600 [place] [address]Dr. Slick Broderick PLT 231 103/ul Normal 150-450 [facility] Comment on above: Performed By: #### C BC ####[facility] Dmftgnuhor9[address] [place], [place] [address]Dr. Slick Broderick RBC 3.01 106/ul Critically low 4.20-5.40 [facility] Comment on above: Performed By: #### C BC ####[facility] Txdwuxqggu94[address] [place], [place] [address]Dr. Slick Broderick WBC 7.5 103/ul Normal 4.0-11.0 [facility] Comment on above: Performed By: #### C BC ####[facility] Ogqocbysrk[address] [place], [place] [address]Dr. Slick Broderick BASO # 0.0 103/ul Normal 0.0-0.1 [facility] Comment on above: Performed By: #### C BC ####[facility] Gfhgcakile1260 [place] [address]Dr. Slick Broderick Basophils/100 WBC (Bld) 0.3 % Normal 0.2-2.0 [facility] Comment on above: Performed By: #### C BC ####[facility] Tjmqfroclw654[address] [place], [place] [address]Dr. Slick Broderick EO # 0.3 103/ul Normal 0.0-0.7 [facility] Comment on above: Performed By: #### C BC ####[facility] Ywrslhctly6157 [place] [address]Dr. Slick Broderick Eosinophils/100 WBC (Bld) 3.8 % Normal 0.9-7.0 [facility] Comment on above: Performed By: #### C BC ####[facility] Lkzvbjzfct[address] [place], [place] [address]Dr. Slick Broderick Erythrocyte distribution width (RBC) [Ratio] 17.4 % Critically high 11.0-15.0 [facility] Comment on above: Performed By: #### C BC ####[facility] Bdhuxrhlie[address] [place], [place] [address]Dr. Slick Broderick Hematocrit (Bld) [Volume fraction] 22.4 % Critically low 36.0-48.0 [facility] Comment on above: Result Comment: Test Repeated Critical Value Verified Performed By: #### C BC ####[facility] Ykxvhiiccj[address] [place], [place] [address]Dr. Slick Broderick Hemoglobin (Bld) [Mass/Vol] 7.1 g/dL Critically low 12.0-16.0 [facility] Comment on above: Performed By: #### C BC ####[facility] Ntppyospqw[address] [place], [place] [address]Dr. Slick Broderick IG # 0.06 10e3/ul Critically high 0.00-0.03 The [facility] Comment on above: Performed By: #### C BC ####[facility] Aawzsaxbhr55[address] [place], [place] [address]Dr. Slick Broderick IG % 0.8 % Critically high 0.0-0.5 The [facility] Comment on above: Performed By: #### C BC ####[facility] Kxccblaelx5239[address] [place], [place] [address]DrEmma Slikc Broderick LYMPH # 0.8 103/ul Critically low 1.2-3.8 The [facility] Comment on above: Performed By: #### C BC ####[facility] Xlhpeymsqa[address] [place] [address]Dr. Slick Davie Lymphocytes/100 WBC (Bld) 10.7 % Critically low 20.5-60.0 [facility] Comment on above: Performed By: #### C BC ####[facility] Fqkiwpyfsx86[address] [place] [address]Dr. Slick Davie MANUAL DIFF REQ NO Normal [facility] Comment on above: Performed By: #### C BC ####[facility] Jnmruiejtr33[address] [place] [address]Dr. Slick Davie MCH (RBC) [Entitic mass] 32.3 pg Normal 26.7-34.0 [facility] Comment on above: Performed By: #### C BC ####[facility] Egcvxrfvcn[address] [place], [place] [address]Dr. Slick Davie MCHC (RBC) [Mass/Vol] 31.7 g/dL Normal 29.9-35.2 [facility] Comment on above: Performed By: #### C BC ####[facility] Sfmrikrhsz3154 [place] [address]Dr. Meaganwendie Broderick MCV (RBC) [Entitic vol] 101.8 fL Critically high 81.0-99 .0 [facility] Comment on above: Performed By: #### C BC ####[facility] Kldzripsmy12[address] [place], [place] [address]Dr. Slick Broderick MONO # 0.8 103/ul Normal 0.3-0.8 [facility] Comment on above: Performed By: #### C BC ####[facility] Nygqotmhpi07[address] [place] [address]Dr. Meaganwendie Broderick Monocytes/100 WBC (Bld) 10.7 % Normal 1.7-12.0 [facility] Comment on above: Performed By: #### C BC ####[facility] Joebbdwzhf[address] [place], [place] [address]Dr. Slick Broderick NEUT # 5.6 103/ul Normal 1.4-6.5 [facility] Comment on above: Performed By: #### C BC ####[facility] Cdgluzbfff8564 [place] [address]Dr. Slick Broderick Neutrophils/100 WBC (Bld) 73.7 % Normal 43.0-75.0 [facility] Comment on above: Performed By: #### C BC ####[facility] Aqforziegs3378 [place] [address]Dr. Slick Broderick Platelet mean volume (Bld) [Entitic vol] 9.4 fL Critically low 9.5-13.5 [facility] Comment on above: Performed By: #### C BC ####[facility] Xsylubxvzg2340 [place] [address]Dr. Slick Broderick PLT 209 103/ul Normal 150-450 [facility] Comment on above: Performed By: #### C BC ####[facility] Lodmvpsdgd4430 [place] [address]Dr. Slick Broderick RBC 2.20 106/ul Critically low 4.20-5.40 [facility] Comment on above: Performed By: #### C BC ####[facility] Hmppgbyacc0319 [place] [address]Dr. Slick Broderick WBC 7.6 103/ul Normal 4.0-11.0 [facility] Comment on above: Performed By: #### C BC ####[facility] Ewtatnquyp5[address] [place] [address]Dr. Slick Broderick PROF 14(COMP METB)on 022 Albumin [Mass/Vol] 2.1 g/dL Critically low 3.4-5.0 [facility] Comment on above: Performed By: #### C MP ####[facility] Oegognocoe5[address] [place] [address]Dr. Slick Broderick Albumin/Globulin [Mass ratio] 0.7 {ratio} Normal [facility] Comment on above: Performed By: #### C MP ####[facility] Zdvylsswzj8531 [place] [address]Dr. Slick Davie ALP [Catalytic activity/Vol] 83 U/L Normal 46-116 [facility] Comment on above: Performed By: #### C MP ####[facility] Ohogkquafi9389 [place] [address]Dr. Slick Broderick ALT [Catalytic activity/Vol] 12 U/L Critically low 14-59 [facility] Comment on above: Performed By: #### C MP ####[facility] Stdqzodstc2499 [place] [address]Dr. Slick Broderick Anion gap [Moles/Vol] 14.0 mmol/L Normal [facility] Comment on above: Performed By: #### C MP ####[facility] Dgtsbeuqbg7874 [place] [address]Dr. Slick Broderick AST [Catalytic activity/Vol] 13 U/L Critically low 15-37 [facility] Comment on above: Performed By: #### C MP ####[facility] Abqfkbeeml45[address] [place], [place] [address]Dr. Slick Broderick Bilirubin [Mass/Vol] 0.3 mg/dL Normal 0.2-1.0 [facility] Comment on above: Performed By: #### C MP ####[facility] Sujszvqlty[address] [place], [place] [address]Dr. Slick Broderick Calcium [Mass/Vol] 7.4 mg/dL Critically low 8.5-10.1 [facility] Comment on above: Performed By: #### C MP ####[facility] Bqzhkklboe8[address] [place], [place] [address]Dr. Slick Broderick Chloride [Moles/Vol] 105 mmol/L Normal 98-107 [facility] Comment on above: Performed By: #### C MP ####[facility] Okadxiiboi[address] [place], [place] [address]Dr. Slick Broderick CO2 [Moles/Vol] 23.0 mmol/L Normal 21.0-32.0 The [facility] Comment on above: Performed By: #### C MP ####[facility] Lqoknpkbdj30[address] [place], [place] [address]Dr. Slick Broderick Creatinine [Mass/Vol] 1.80 mg/dL Critically high 0.55-1.02 [facility] Comment on above: Performed By: #### C MP ####[facility] Losfxvduec9881 [place], [place] [address]Ch. Slick Broderick EGFR-AF IRAQI 33 mL/min/1.73m2 Critically low >=60 [facility] Comment on above: Performed By: #### C MP ####[facility] Zhrzsjtumk1528 [place] [address]Dr. Slick Broderick EGFR-NON AF IRAQI 28 mL/min/1.73m2 Critically low >=60 [facility] Comment on above: Performed By: #### C MP ####[facility] Qpyghwiejr4822 [place] [address]Dr. Slick Broderick Globulin (S) [Mass/Vol] 3.2 g/dL Normal T [facility] Comment on above: Performed By: #### C MP ####[facility] Ictocfhjkj0711 [place] [address]Dr. Slick Broderick Glucose [Mass/Vol] 85 mg/dL Normal 74-106 [facility] Comment on above: Performed By: #### C MP ####[facility] Vsgnkrplsa5893 [place] [address]Dr. Slick Broderick Potassium [Moles/Vol] 5.0 mmol/L Normal 3.5-5.1 [facility] Comment on above: Performed By: #### C MP ####[facility] Scexgiilru6199 [place] [address]Dr. Slick Broderick Protein [Mass/Vol] 5.3 g/dL Critically low 6.4-8.2 Th [facility] Comment on above: Performed By: #### C MP ####[facility] Jqlnzmddxm2161 [place] [address]Dr. Slick Broderick Sodium [Moles/Vol] 137 mmol/L Normal 136-145 [facility] Comment on above: Performed By: #### C MP ####[facility] Dtfhbczkev9888 [place] [address]Dr. Slick Broderick Urea nitrogen [Mass/Vol] 30.0 mg/dL Critically high 7.0-18.0 [facility] Comment on above: Performed By: #### C MP ####[facility] Ebvcbgfybf3621 [place] [address]Dr. Slick Broderick Urea nitrogen/Creatinine [Mass ratio] 16.7 mg/mg Normal [facility] Comment on above: Performed By: #### C MP ####[facility] Dqskqqclec7466 [place] [address]Dr. Slick Broderick ABO RH RETYPEon 12-12-2021 ABO and Rh group Nom (Bld) DONE Normal [facility] Comment on above: Performed By: #### R ETYPE ####[facility] Akmlfsusoq[address] [place], [place] [address]Dr. Slick Broderick BNPon 12-12-2021 Natriuretic peptide B (Bld) [Mass/Vol] 952.0 pg/mL Critically high <=900.0 [facility] Comment on above: Performed By: #### B FIRST AID NURSE, CRP, CMP ####[facility] Psoedrdtwy[address] [place], [place] [address]Dr. Slick Broderick CBC AUTO DIFFon 12-12-2021 BASO # 0.0 103/ul Normal 0.0-0.1 [facility] Comment on above: Performed By: #### C BC ####[facility] Ihubzaiyps44[address] [place], [place] [address]Dr. Slick Broderick Basophils/100 WBC (Bld) 0.2 % Normal 0.2-2.0 T [facility] Comment on above: Performed By: #### C BC ####[facility] Unlbcvsumx453[address] [place], [place] [address]Dr. Slick Broderick EO # 0.2 103/ul Normal 0.0-0.7 [facility] Comment on above: Performed By: #### C BC ####[facility] Sfkhknjqcz10[address] [place], [place] [address]Dr. Slick Davie Eosinophils/100 WBC (Bld) 2.6 % Normal 0.9-7.0 [facility] Comment on above: Performed By: #### C BC ####[facility] Dhttaaroaw35[address] [place], [place] [address]Dr. Slick Broderick Erythrocyte distribution width (RBC) [Ratio] 17.2 % Critically high 11.0-15.0 [facility] Comment on above: Performed By: #### C BC ####[facility] Rvzkecvnuz0300 [place] [address]DrEmma Broderick Hematocrit (Bld) [Volume fraction] 24.0 % Critically low 36.0-48.0 [facility] Comment on above: Performed By: #### C BC ####[facility] Jczacbqrtz4[address] [place], [place] [address]DrEmma Broderick Hemoglobin (Bld) [Mass/Vol] 7.7 g/dL Critically low 12.0-16.0 [facility] Comment on above: Performed By: #### C BC ####[facility] Xmucriushq908[address] [place], [place] [address]DrEmma Broderick IG # 0.05 10e3/ul Critically high 0.00-0.03 [facility] Comment on above: Performed By: #### C BC ####[facility] Txiglwzedp11[address] [place], [place] [address]DrEmma Broderick IG % 0.5 % Normal 0.0-0.5 [facility] Comment on above: Performed By: #### C BC ####[facility] Etllqjhuvv22[address] [place], [place] [address]DrEmma Broderick LYMPH # 0.7 103/ul Critically low 1.2-3.8 [facility] Comment on above: Performed By: #### C BC ####[facility] Zrdrpmkuyj9734[address] [place], [place] [address]DrEmma Broderick Lymphocytes/100 WBC (Bld) 7.7 % Critically low 20.5-60.0 [facility] Comment on above: Performed By: #### C BC ####[facility] Vwhfbmbcxc[address] [place], [place] [address]DrEmma Broderick MANUAL DIFF REQ NO Normal [facility] Comment on above: Performed By: #### C BC ####[facility] Pmpydpmxvo69[address] [place], [place] [address]DrEmma Broderick MCH (RBC) [Entitic mass] 32.6 pg Normal 26.7-34.0 [facility] Comment on above: Performed By: #### C BC ####[facility] Whnbzpeubb4322 [place] [address]Dr. Slick Davie MCHC (RBC) [Mass/Vol] 32.1 g/dL Normal 29.9-35.2 [facility] Comment on above: Performed By: #### C BC ####[facility] Ccnwecnors9678 [place] [address]Dr. Slick Broderick MCV (RBC) [Entitic vol] 101.7 fL Critically high 81.0-99 .0 [facility] Comment on above: Performed By: #### C BC ####[facility] Apskweoodv3625[address] [place], [place] [address]DrEmma Broderick MONO # 0.8 103/ul Normal 0.3-0.8 [facility] Comment on above: Performed By: #### C BC ####[facility] Ouptqmnpov17[address] [place], [place] [address]Dr. Slick Broderick Monocytes/100 WBC (Bld) 8.5 % Normal 1.7-12.0 [facility] Comment on above: Performed By: #### C BC ####[facility] Cqxjefwbch[address] [place], [place] [address]DrEmma Broderick NEUT # 7.3 103/ul Critically high 1.4-6.5 [facility] Comment on above: Performed By: #### C BC ####[facility] Lkdrmnzmpt9437[address] [place], [place] [address]Dr. Slick Broderick Neutrophils/100 WBC (Bld) 80.5 % Critically high 43.0-75.0 [facility] Comment on above: Performed By: #### C BC ####[facility] Nxmqutdywh24[address] [place], [place] [address]DrEmma Broderick Platelet mean volume (Bld) [Entitic vol] 8.9 fL Critically low 9.5-13.5 [facility] Comment on above: Performed By: #### C BC ####[facility] Dmmigjhzpf7056[address] [place], [place] [address]Dr. Slick Broderick PLT 204 103/ul Normal 150-450 [facility] Comment on above: Performed By: #### C BC ####[facility] Cwjpakgmrq0181 [place] [address]Dr. Slick Broderick RBC 2.36 106/ul Critically low 4.20-5.40 [facility] Comment on above: Performed By: #### C BC ####[facility] Nfpfnmypqp6237 [place] [address]Dr. Slick Broderick WBC 9.1 103/ul Normal 4.0-11.0 [facility] Comment on above: Performed By: #### C BC ####[facility] Yhbmewzrvi5301 [place] [address]Dr. Slick Broderick CBC W MANUAL DIFFon 12-13-19 22 ATYPICAL LYMPH # Normal [facility] Comment on above: Performed By: #### C BCMAN ####[facility] Eqlaggxqhl1927 [place] [address]Dr. Slick Broderick ATYPICAL LYMPH % Normal [facility] Comment on above: Performed By: #### C BCMAN ####[facility] Efstawkhzz5460 [place] [address]Dr. Slick Broderick BAND # Normal 0.0-0.3 [facility] Comment on above: Performed By: #### C BCMAN ####[facility] Frstuvnnnh5326 [place] [address]Dr. Slick Broderick BAND % Normal 0-5 [facility] Comment on above: Performed By: #### C BCMAN ####[facility] Yonmrfxtph1253 [place] [address]Dr. Slick Broderick BASOM # 0.00 103/ul Normal 0.00-0.10 [facility] Comment on above: Performed By: #### C BCMAN ####[facility] Uhtohildsf2352 [place] [address]Dr. Slick Broderick BASOM % 0.0 % Critically low 0.2-2.0 [facility] Comment on above: Performed By: #### C BCMAN ####[facility] Mujeocwgbs0649 [place] [address]Dr. Slick Broderick BLAST # Normal [facility] Comment on above: Performed By: #### C BCMAN ####[facility] Lagrujppbq3777 [place] [address]Dr. Slick Broderick BLAST % Normal [facility] Comment on above: Performed By: #### C BCMAN ####[facility] Vbavrduxup8315 [place] [address]Dr. Slick Broderick CORRECTED WBC Normal 4.0-11.0 [facility] Comment on above: Performed By: #### C BCMAN ####[facility] Btsqcphkgy8079 [place] [address]Dr. Slick Broderick EOS # 0.35 103/ul Normal 0.00-0.70 [facility] Comment on above: Performed By: #### C BCNAZARIO ####[facility] Snzngertjt3793 [place] [address]Dr. Slick Broderick EOS% 3.0 % Normal 0.9-7.0 [facility] Comment on above: Performed By: #### C BCNAZARIO ####[facility] Hmr[address] [place], [place] [address]Dr. Slick Broderick HCT 21.4 % Critically low 36.0-48.0 [facility] Comment on above: Result Comment: TEST REPEATED CRITICAL VALUE VERIFIED Performed By: #### C BCMAN ####[facility] Mxvceilivu[address] [place], [place] [address]Dr. Slick Broderick HGB 6.6 g/dl Critically low 12.0-16.0 [facility] Comment on above: Result Comment: TEST REPEATED CRITICAL VALUE VERIFIED Performed By: #### C BCMAN ####[facility] Wzbucycmpp[address] [place], [place] [address]Dr. Slick Broderick LYMPHM # 0.59 103/ul Critically low 1.20-3.80 [facility] Comment on above: Performed By: #### C BCMAN ####[facility] Prmrqlsusr7796 [place] [address]Dr. Slick Broderick LYMPHM% 5.0 % Critically low 20.5-60.0 [facility] Comment on above: Performed By: #### C AIDEN ####[facility] Yomxbangzx8418 [place] [address]Dr. Slick Broderick MCH 33.2 pg Normal 26.7-34.0 [facility] Comment on above: Performed By: #### C AIDEN ####[facility] Ivxdufjwzx3697 [place] [address]Dr. Slick Broderick MCHC 30.8 g/dl Normal 29.9-35.2 [facility] Comment on above: Performed By: #### C AIDEN ####[facility] Xyvsilxmha9416 [place] [address]Dr. Slick Broderick MCV 107.5 fL Critically high 81.0-99.0 [facility] Comment on above: Result Comment: RBCS APPEAR MACROCYTIC ON PERIPHERAL SMEAR Performed By: #### C AIDEN ####[facility] Izmmohtmvo[address] [place], [place] [address]Dr. Slick Broderick METAMYELOCYTE # Normal [facility] Comment on above: Performed By: #### C AIDEN ####[facility] Dtlnzgvngk7629 [place] [address]Dr. Slick Broderick METAMYELOCYTE % Normal [facility] Comment on above: Performed By: #### C AIDEN ####[facility] Mrvrjqnhcm6511 [place] [address]Dr. Slick Broderick MONOM# 0.71 103/ul Normal 0.30-0.80 [facility] Comment on above: Performed By: #### C AIDEN ####[facility] Mdrfihfuku2430 [place] [address]Dr. Slick Broderick MONOM% 6.0 % Normal 1.7-12.0 [facility] Comment on above: Performed By: #### C AIDEN ####[facility] Bbbpscuggd2656 [place] [address]Dr. Slick Broderick MPV 9.2 fL Critically low 9.5-13.5 [facility] Comment on above: Performed By: #### C BCMAN ####[facility] Fhuxkhvqey3065 [place], [place] [address]Cp. Slick Broderick MYELOCYTE # Normal [facility] Comment on above: Performed By: #### C BCMAN ####[facility] Vkfwmxzgmb4889 [place], [place] [address]Zw. Slick Broderick MYELOCYTE % Normal [facility] Comment on above: Performed By: #### C BCMAN ####[facility] Unyxdeejkb0189 [place], [place] [address]Ty. Slick Broderick NRBC Normal [facility] Comment on above: Performed By: #### C BCNAZARIO ####[facility] Iznxftoxah3522 [place] [address]Dr. Slick Broderick PLT 232 103/ul Normal 150-450 [facility] Comment on above: Performed By: #### C BCNAZARIO ####[facility] Dpdmruvphk9381 [place] [address]Dr. Slick Broderick RBC 1.99 106/ul Critically low 4.20-5.40 [facility] Comment on above: Performed By: #### C BCNAZARIO ####[facility] Gyrucirock1439 [place] [address]Dr. Slick Broderick RDW 15.6 % Critically high 11.0-15.0 [facility] Comment on above: Performed By: #### C BCNAZARIO ####[facility] Dnnbzrhnyr0619 [place] [address]Dr. Slick Broderick SEG # 10.15 103/ul Critically high 1.40-6.50 [facility] Comment on above: Performed By: #### C BCMAN ####[facility] Tokmrrycts6660 [place], [place] [address]Wu. Slick Broderick SEG % 86.0 % Critically high 43.0-75.0 [facility] Comment on above: Performed By: #### C BCMAN ####[facility] Uzbbfjudze7856 [place] [address]Dr. Slick Broderick WBC 11.8 103/ul Critically high 4.0-11.0 [facility] Comment on above: Performed By: #### C BCMAN ####[facility] Hbygrawfje[address] [place] [address]Dr. Slick Broderick CRPon 12-12-2021 CRP 10.1 mg/dL Critically high <=1.0 [facility] Comment on above: Performed By: #### B FIRST AID NURSE, CRP, CMP ####[facility] Okpnqpmrlx7685 [place] [address]Dr. Slick Broderick CULTURE BLOODon 12-12-2021 Microscopic examination of blood, culture Culture Observations: NO GROWTH AT 5 DAYS. Normal [facility] Comment on above: Performed By: #### B LDCX2 ####[facility] Infzykbdms[address] [place], [place] [address]Dr. Slick Broderick Microscopic examination of blood, culture Culture Observations: NO GROWTH AT 5 DAYS. Normal [facility] Comment on above: Performed By: #### B LDCX1 ####[facility] Yvcqqqlkue13[address] [place], [place] [address]Dr. Slick Broderick CULTURE URINEon 12-12-2021 CULTURE URINE Culture Observations: NO GROWTH. Normal [facility] Comment on above: Performed By: #### U RCX ####[facility] Uvniuhazia[address] [place], [place] [address]Dr. Slick Broderick Covid-19 PCR (CVDTB)on SARS-CoV-2 (COVID-19) RNA DONNIE+probe Ql (Unsp spec) Not detected Normal NOT DETECTED [facility] Comment on above: Result [...] for this test is supported by the Outside Sales Executive of Health and Human Service's declaration that [...] be used). Performed By: #### C VDTB ####[facility] Dzpduhkkod34[address] [place], [place] [address]Dr. Slick Broderick ER URINE PROFILEon 2 Bilirubin Ql (U) Negative Normal NEGATIVE [facility] Comment on above: Performed By: #### U MICRO, ERUR ####[facility] Crrrtisesm67[address] [place], [place] [address]Dr. Slick Broderick Clarity (U) CLOUDY Abnormal CLEAR [facility] Comment on above: Performed By: #### U MICRO, ERUR ####[facility] Wqtdikmamz22[address] [place], [place] [address]Dr. Slick Broderick Color (U) LT. YELLOW Normal YELLOW [facility] Comment on above: Performed By: #### U MICRO, ERUR ####[facility] Giuxldslbu[address] [place], [place] [address]Dr. Slick Broderick ERUAHD A micrscopic examination will be performed if indicated. Normal The [facility] Comment on above: Performed By: #### U MICRO, ERUR ####[facility] [address] [place], [place] [address]Dr. Meaganlan Broderick Glucose Ql (U) Negative Normal NEGATIVE The [facility] Comment on above: Performed By: #### U MICRO, ERUR ####[facility] Sdgwzd[address] [place], [place] [address]Dr. Meaganlan Broderick Hemoglobin Ql (U) Negative Normal NEGATIVE The [facility] Comment on above: Performed By: #### U MICRO, ERUR ####[facility] Mmdemwyap[address] [place], [place] [address]Dr. Meaganlan Broderick Ketones Ql (U) Negative Normal NEGATIVE The [facility] Comment on above: Performed By: #### U MICRO, ERUR ####[facility] Oe[address] [place], [place] [address]Dr. Meaganlan Broderick LEUKOCYTES MODERATE Abnormal NEGATIVE The [facility] Comment on above: Performed By: #### U MICRO, ERUR ####[facility] C[address]mybbmlk[address] [place] [address]Dr. Meaganwendie Broderick Nitrite Ql (U) Negative Normal NEGATIVE The [facility] Comment on above: Performed By: #### U MICRO, ERUR ####[facility] Fywlxylnho[address] [place] [address]Dr. Slick Broderick pH (U) 6.0 [pH] Normal 5-9 [facility] Comment on above: Performed By: #### U MICRO, ERUR ####[facility] Yrkldixrxf4[address] [place] [address]Dr. Slick Broderick SPEC GRAVITY 1.010 Normal 1.005-<=1.0 25 [facility] Comment on above: Performed By: #### U MICRO, ERUR ####[facility] Hrekjwmoeb[address] [place] [address]Dr. Slick Broderick UA PROTEIN Negative Normal NEGATIVE/ TRACE The [facility] Comment on above: Performed By: #### U MICRO, ERUR ####[facility] Svubiuimvl[address] [place] [address]Dr. Slick Broderick UR MICRO IND INDICATED Normal [facility] Comment on above: Performed By: #### U MICRO, ERUR ####[facility] Qgqcmtgkqi5[address] [place] [address]Dr. Slick Broderick Urobilinogen Qn (U) 0.2 {Hiren'U}/dL Normal 0.2 - 1. 0 [facility] Comment on above: Performed By: #### U MICRO, ERUR ####[facility] Mkxsqpzxca[address] [place] [address]Dr. Slick Broderick IRON AND TIBCon 12-12-2021 % SATURATION 7.0 % Normal [facility] Comment on above: Performed By: #### B 12FOL, FETIBC ####[facility] Pjyyrgbsxy7[address] [place] [address]Dr. Slick Broderick Iron [Mass/Vol] 18.0 ug/dL Critically low 50.0-170.[address] [facility] Comment on above: Performed By: #### B 12FOL, FETIBC ####[facility] Suetdfofxd[address] [place] [address]Dr. Slick Broderick TIBC DIRECT 257.0 ug/dL Normal 250.0-450.0 [facility] Comment on above: Performed By: #### B 12FOL, FETIBC ####[facility] Pmuaudsasn5[address] [place] [address]Dr. Slick Broderick LACTATE/LACTIC ACIDon 2021 Lactate [Moles/Vol] 0.7 mmol/L Normal 0.4-1.[address] [facility] Comment on above: Performed By: #### L ACT ####[facility] Idxq[address]vqch[address] [place], [place] [address]Dr. Slick Broderick OCC BLD IMMUNO SCREENon OCCULT BLOOD Negative Normal NEGATIVE [facility] Comment on above: Performed By: #### O BSCRN ####[facility] Yoaazsfalr[address] [place] [address]Dr. Slick Broderick PROF 14(COMP METB)on 022 Albumin [Mass/Vol] 2.6 g/dL Critically low 3.4-5.0 [facility] Comment on above: Performed By: #### B FIRST AID NURSE, CRP, CMP ####[facility] Szxylyaepu[address] [place] [address]Dr. Slick Broderick Albumin/Globulin [Mass ratio] 0.7 {ratio} Normal [facility] Comment on above: Performed By: #### B FIRST AID NURSE, CRP, CMP ####[facility] Emlseaelvg3[address] [place] [address]Dr. Slick Broderick ALP [Catalytic activity/Vol] 105 U/L Normal 46-116 [facility] Comment on above: Performed By: #### B FIRST AID NURSE, CRP, CMP ####[facility] Smqnaiioch9216 [place] [address]Dr. Slick Broderick ALT [Catalytic activity/Vol] 16 U/L Normal 14-59 [facility] Comment on above: Performed By: #### B FIRST AID NURSE, CRP, CMP ####[facility] Rgavbcttwd1047 [place] [address]Dr. Slick Broderick Anion gap [Moles/Vol] 11.7 mmol/L Normal [facility] Comment on above: Performed By: #### B FIRST AID NURSE, CRP, CMP ####[facility] Tapoeaionn1622 [place] [address]Dr. Slick Broderick AST [Catalytic activity/Vol] 11 U/L Critically low 15-37 [facility] Comment on above: Performed By: #### B FIRST AID NURSE, CRP, CMP ####[facility] Tdndphrscn33[address] [place] [address]Dr. Slick Broderick Bilirubin [Mass/Vol] 0.3 mg/dL Normal 0.2-1.0 [facility] Comment on above: Performed By: #### B FIRST AID NURSE, CRP, CMP ####[facility] Imusxmyfem[address] [place], [place] [address]Dr. Slick Broderick Calcium [Mass/Vol] 7.8 mg/dL Critically low 8.5-10.1 [facility] Comment on above: Performed By: #### B FIRST AID NURSE, CRP, CMP ####[facility] Hsvlfzpket[address] [place], [place] [address]Dr. Slick Broderick Chloride [Moles/Vol] 105 mmol/L Normal 98-107 [facility] Comment on above: Performed By: #### B FIRST AID NURSE, CRP, CMP ####[facility] Ytxbzsfetq[address] [place], [place] [address]Dr. Slick Broderick CO2 [Moles/Vol] 24.2 mmol/L Normal 21.0-32.0 [facility] Comment on above: Performed By: #### B FIRST AID NURSE, CRP, CMP ####[facility] Nkrbzmpjpw[address] [place], [place] [address]Dr. Slick Broderick Creatinine [Mass/Vol] 1.96 mg/dL Critically high 0.55-1.02 [facility] Comment on above: Performed By: #### B FIRST AID NURSE, CRP, CMP ####[facility] Zhggxucivo7[address] [place], [place] [address]Dr. Slick Broderick EGFR-AF IRAQI 30 mL/min/1.73m2 Critically low >=60 [facility] Comment on above: Performed By: #### B FIRST AID NURSE, CRP, CMP ####[facility] Csiqjteqzz9[address] [place] [address]Dr. Slick Broderick EGFR-NON AF IRAQI 25 mL/min/1.73m2 Critically low >=60 [facility] Comment on above: Performed By: #### B FIRST AID NURSE, CRP, CMP ####[facility] Srgjfanhhq[address] [place], [place] [address]Dr. Slick Broderick Globulin (S) [Mass/Vol] 3.8 g/dL Normal T [facility] Comment on above: Performed By: #### B FIRST AID NURSE, CRP, CMP ####[facility] Rlbydkqpeb[address] [place], [place] [address]Dr. Slick Broderick Glucose [Mass/Vol] 91 mg/dL Normal 74-106 [facility] Comment on above: Performed By: #### B FIRST AID NURSE, CRP, CMP ####[facility] Fshfwtqogt99[address] [place], [place] [address]Dr. Slick Broderick Potassium [Moles/Vol] 4.9 mmol/L Normal 3.5-5.1 [facility] Comment on above: Performed By: #### B FIRST AID NURSE, CRP, CMP ####[facility] Iuglfqkqrp47[address] [place], [place] [address]Dr. Slick Broderick Protein [Mass/Vol] 6.4 g/dL Normal 6.4-8.2 [facility] Comment on above: Performed By: #### B FIRST AID NURSE, CRP, CMP ####[facility] Zhxbjvnaqd38[address] [place], [place] [address]Dr. Slick Broderick Sodium [Moles/Vol] 136 mmol/L Normal 136-145 [facility] Comment on above: Performed By: #### B FIRST AID NURSE, CRP, CMP ####[facility] Wuosmfbasg24[address] [place], [place] [address]Dr. Slick Broderick Urea nitrogen [Mass/Vol] 32.0 mg/dL Critically high 7.0-18.0 [facility] Comment on above: Performed By: #### B FIRST AID NURSE, CRP, CMP ####[facility] Bpblwiqcaz78[address] [place] [address]Dr. Slick Broderick Urea nitrogen/Creatinine [Mass ratio] 16.3 mg/mg Normal [facility] Comment on above: Performed By: #### B FIRST AID NURSE, CRP, CMP ####[facility] Jcqkonyoxr53[address] [place] [address]Dr. Slick Broderick TYPE AND SCREENon 12-12-2021 TYPE AND SCREEN Negative Normal [facility] Comment on above: Performed By: #### T NS ####[facility] Mvqarylytg[address] [place], [place] [address]Dr. Slick Broderick URINE MICROSCOPIC ONLYon BACTERIA SMALL Abnormal NONE SEEN The [facility] Comment on above: Performed By: #### U MICRO, ERUR ####[facility] Hobghnucqq[address] [place], [place] [address]Dr. Slick Broderick Bacteria identified Cx Nom (U) INDICATED Normal [facility] Comment on above: Performed By: #### U MICRO, ERUR ####[facility] Sissjjeciw[address] [place], [place] [address]Dr. Slick Broderick CAST NONE SEEN Normal NONE SEEN The [facility] Comment on above: Performed By: #### U MICRO, ERUR ####[facility] Dcoiunducs[address] [place], [place] [address]Dr. Slick Broderick Crystals LM Nom (Urine sed) NONE SEEN Normal NONE SEEN The [facility] Comment on above: Performed By: #### U MICRO, ERUR ####[facility] Voohzpomxc[address] [place], [place] [address]Dr. Slick Broderick Epithelial cells LM Ql (Urine sed) MANY Abnormal NONE SEEN /RARE The [facility] Comment on above: Performed By: #### U MICRO, ERUR ####[facility] Asvqtvbkbc[address] [place], [place] [address]Dr. Slick Broderick MUCOUS TRACE Abnormal NONE SEEN The [facility] Comment on above: Performed By: #### U MICRO, ERUR ####[facility] Wkencpdfmd90[address] [place], [place] [address]Dr. Slick Broderick RBC 0-2 Normal 0-2 [facility] Comment on above: Performed By: #### U MICRO, ERUR ####[facility] Gkebqjiekx3[address] [place] [address]Dr. Slick Broderick WBC 2-5 Abnormal NONE SEEN The [facility] Comment on above: Performed By: #### U MICRO, ERUR ####[facility] Ziaktuczjs3972 [place] [address]Dr. Slick Broderick VIT B12 AND FOLATEon 022 Cobalamin (Vitamin B12) [Mass/Vol] 753.0 pg/mL Normal 193.0-986.0 [facility] Comment on above: Performed By: #### B 12FOL, FETIBC ####[facility] Qtsjafcddt7156 [place] [address]Dr. Slick Broderick FOLATE 20.20 ng/mL Normal 8.60-58.90 [facility] Comment on above: Performed By: #### B 12FOL, FETIBC ####[facility] Vvlaaqyrlt[address] [place], [place] [address]Dr. Slick Broderick XR CHEST 1 Von 12-12-2021 XR CHEST 1 V Normal [facility] XR KNEE LT 3Von 12-12-2021 XR KNEE LT 3V Normal The [facility] PROF CHEM 8 (BAS METB)on Anion gap [Moles/Vol] 11.4 mmol/L Normal [facility] Comment on above: Performed By: #### B MP ####[facility] Siknaxmufe[address] [place] [address]Dr. Slick Broderick Calcium [Mass/Vol] 7.4 mg/dL Critically low 8.5-10.1 [facility] Comment on above: Performed By: #### B MP ####[facility] Qwlbdykecw[address] [place], [place] [address]DrEmma Broderick Chloride [Moles/Vol] 109 mmol/L Critically high 98-107 [facility] Comment on above: Performed By: #### B MP ####[facility] Mddmzioncr[address] [place], [place] [address]Dr. Slick Broderick CO2 [Moles/Vol] 26.6 mmol/L Normal 21.0-32.0 [facility] Comment on above: Performed By: #### B MP ####[facility] Mpkgzmoyhy4375 [place] [address]Dr. Slick Broderick Creatinine [Mass/Vol] 1.16 mg/dL Critically high 0.55-1.02 [facility] Comment on above: Performed By: #### B MP ####[facility] Encughqxdz27[address] [place], [place] [address]Dr. Slick Broderick EGFR-AF IRAQI 56 mL/min/1.73m2 Critically low >=60 [facility] Comment on above: Performed By: #### B MP ####[facility] Vxaiiivhpr[address] [place], [place] [address]Dr. Slick Broderick EGFR-NON AF IRAQI 46 mL/min/1.73m2 Critically low >=60 [facility] Comment on above: Performed By: #### B MP ####[facility] Dmmxhufdww[address] [place], [place] [address]Dr. Slick Broderick Glucose [Mass/Vol] 128 mg/dL Critically high 74-106 [facility] Comment on above: Performed By: #### B MP ####[facility] Tgbdeuaahs[address] [place], [place] [address]Dr. Slick Davie Potassium [Moles/Vol] 5.0 mmol/L Normal 3.5-5.1 [facility] Comment on above: Performed By: #### B MP ####[facility] Zvzoiqonjb[address] [place], [place] [address]Dr. Slick Davie Sodium [Moles/Vol] 142 mmol/L Normal 136-145 [facility] Comment on above: Performed By: #### B MP ####[facility] Zgciqcrict[address] [place], [place] [address]Dr. Slick Broderick Urea nitrogen [Mass/Vol] 22.0 mg/dL Critically high 7.0-18.0 [facility] Comment on above: Performed By: #### B MP ####[facility] Ogycklzhuz[address] [place], [place] [address]Dr. Slick Broderick Urea nitrogen/Creatinine [Mass ratio] 19.0 mg/mg Normal [facility] Comment on above: Performed By: #### B ####[facility] Psdebysbct[address]343 [place], [place] [address]Hh. Slick Broderick XR TIB_FIB LT 2Von 2 XR TIB_FIB LT 2V Normal The [facility] CT CSPINE WO CONon 2 CT CSPINE WO CON Normal The [facility] CT HEAD WO CONon 11-29-2021 CT HEAD WO CON Normal The [facility] XR lumbar spine AP/LAT/FLX/E XTon 10-06-2021 XR lumbar spine AP/LAT/FLX/EXT [facility] [employer] Other XR lumbar spine AP/LAT/FLX/EXT [facility] [employer] Other XR lumbar spine AP/LAT/FLX/EXT [address] [place] [address] [employer] Other XR lumbar spine AP/LAT/FLX/[place] [address] [employer] Other XR lumbar spine AP/LAT/FLX/EXT XRay Report [employer] Other XR lumbar spine AP/LAT/FLX/EXT Signed [employer] Other XR lumbar spine AP/LAT/FLX/EXT Patient: Linda Nascimento MR#: [id number] [employer] Other XR lumbar spine AP/LAT/FLX/EXT 840 [employer] Other XR lumbar spine AP/LAT/FLX/EXT : 1950 Acct:[id number] [employer] Other XR lumbar spine AP/LAT/FLX/EXT Age/Sex: 71 / F ADM Date: 10/06/21 [facility] [employer] Other XR lumbar spine AP/LAT/FLX/EXT Loc: SOXD Room: Type: REG CLI [employer] Other XR lumbar spine AP/LAT/FLX/EXT Attending Dr: Gunnar Fernandez DO [employer] Other XR lumbar spine AP/LAT/FLX/EXT Ordering Provider: Gunnar Fernandez DO [employer] Other XR lumbar spine AP/LAT/FLX/EXT Date of Service: 10/06/21 [employer] Other XR lumbar spine AP/LAT/FLX/EXT XR/XR lumbar spine AP/LAT/FLX/EXT: Lumbar pain [employer] Other XR lumbar spine AP/LAT/FLX/EXT Copies to: Gunnar Fernandez DO [employer] Other XR lumbar spine AP/LAT/FLX/EXT Lumbar spine 10/06/2021. [employer] Other XR lumbar spine AP/LAT/FLX/EXT CLINICAL DATA: Low back pain with radiation to the buttocks. [employer] Other XR lumbar spine AP/LAT/FLX/EXT FINDINGS: 4 standing views of the lumbar spine were obtained including lateral views in the [employer] Other XR lumbar spine AP/LAT/FLX/EXT neutral, flexion, and extension positions. [employer] Other XR lumbar spine AP/LAT/FLX/EXT There is grade 2 spondylolisthesis measuring 17 mm at L4-L5. There is grade 1 spondylolisthesis [employer] Other XR lumbar spine AP/LAT/FLX/EXT measuring 8 mm at the lumbosacral junction. There is mild anterior malalignment of L3 on L4. Overall [employer] Other XR lumbar spine AP/LAT/FLX/EXT vertebral alignment does not significantly change with flexion or extension. There are disc space [employer] Other XR lumbar spine AP/LAT/FLX/EXT narrowing and facet arthritis in the lower lumbar spine. [employer] Other XR lumbar spine AP/LAT/FLX/EXT XR/XR lumbar spine AP/LAT/FLX/EXT [employer] Other XR lumbar spine AP/LAT/FLX/EXT IMPRESSION: Multilevel spondylolisthesis. No instability with flexion or extension. Disc space [employer] Other XR lumbar spine AP/LAT/FLX/EXT Impression dictated by: Marin Haines Jr., M.D.10/06/2021 4:07 PM [employer] Other XR lumbar spine AP/LAT/FLX/EXT Dictation Location: [place] [address] [employer] Other XR lumbar spine AP/LAT/FLX/EXT Transcribed By: ROLF 10/06/21 1607 [employer] Other XR lumbar spine AP/LAT/FLX/EXT Dictated By: Marin Haines Jr, MD 10/06/21 1600 [employer] Other XR lumbar spine AP/LAT/FLX/EXT Signed By: [employer] Other XR lumbar spine AP/LAT/FLX/EXT 10/06/21 1609 [employer] Other BASIC METABOLIC PANELon 11-1 Calcium [Mass/Vol] 8.2 mg/dL Low 8.6-10.3 The [facility] Comment on above: Order Comment: No: D o not add to previous draw Performed By: #### 0 0071 ####[facility] [place] [address], [facility] Chloride [Moles/Vol] 106 mmol/L Normal 98-107 [facility] Comment on above: Order Comment: No: D o not add to previous draw Performed By: #### 0 0071 ####[facility] [place] [address], [facility] CO2 [Moles/Vol] 23 mmol/L Normal 21-31 [facility] Comment on above: Order Comment: No: D o not add to previous draw Performed By: #### 0 0071 ####[facility] [place] [address], [facility] Creatinine [Mass/Vol] 0.98 mg/dL Normal 0.60-1.20 [facility] Comment on above: Order Comment: No: D o not add to previous draw Performed By: #### 0 0071 ####[facility] [facility] [place] [address], [facility] eGFR- non- 56 ml/min/1.73sq m Abnormal >60 The [facility] Comment on above: Order Comment: No: D o not add to previous draw Result Comment: Calc ulation may not be valid for patients over 70 years Performed By: #### 0 0071 ####[facility] [facility] [place] [address], [facility] GFR/1.73 sq M.predicted among blacks MDRD (S/P/Bld) [Vol rate/Area] mL/min/{1.73_m2} Normal >60 The [facility] Comment on above: Order Comment: No: D o not add to previous draw Result Comment: Calc ulation may not be valid for patients over 70 years Performed By: #### 0 0071 ####[facility] [place] [address], [place] Glucose [Mass/Vol] 104 mg/dL High 70-100 [facility] Comment on above: Order Comment: No: D o not add to previous draw Performed By: #### 0 0071 ####[facility] [place] [address], [place] Potassium [Moles/Vol] 4.5 mmol/L Normal 3.5-5.1 [facility] Comment on above: Order Comment: No: D o not add to previous draw Performed By: #### 0 0071 ####[facility] [place] [address], [facility] Sodium [Moles/Vol] 136 mmol/L Normal 136-145 The [facility] Comment on above: Order Comment: No: D o not add to previous draw Performed By: #### 0 0071 ####[facility] [place] [address], [facility] Urea nitrogen [Mass/Vol] 14 mg/dL Normal 7-25 [facility] Comment on above: Order Comment: No: D o not add to previous draw Performed By: #### 0 0071 ####[facility] [facility] [place] [address], [facility] HEMATOCRITon 04-28-2021 Hematocrit (Bld) [Volume fraction] 27.6 % Low 36.0-45.0 [facility] Comment on above: Order Comment: No: D o not add to previous draw Performed By: #### 5 [id number], [address]5929 #### [facility] [address] [facility] [place] [address], [facility] HEMOGLOBINon 04-28-2021 Hemoglobin (Bld) [Mass/Vol] 8.6 g/dL Low 12.0-15.0 [facility] Comment on above: Order Comment: No: D o not add to previous draw Performed By: #### 5 7307, 33829 #### [facility] [address] [facility] [place] [address], [facility] CHEST AND LATERALon 04-27-20 CHEST AND LATERAL [facility] Department of Radiology [address] [place] [id number] Patient Name: LINDA NACSIMENTO : 1950 Sex: F Age: Race: White Pt. Location: [id number] Patient Status: I Ordered Date: 04/27/2021 7:00:00 [...] leads. Electronically signed: Dwight Davila. Transcribed by: [email or web address], User Resident: Electronically Signed by: DWIGHT DAVILA @ 04/27/2021 10:35 AM Normal [facility] Comment on above: Order Comment: No: D o not add to previous draw BASIC METABOLIC PANELon 11- Calcium [Mass/Vol] 8.7 mg/dL Normal 8.6-10.3 [facility] Comment on above: Order Comment: No: D o not add to previous draw Performed By: #### 0 0071 ####[facility] [place] [address], [facility] Chloride [Moles/Vol] 103 mmol/L Normal 98-107 [facility] Comment on above: Order Comment: No: D o not add to previous draw Performed By: #### 0 0071 ####[facility] [place] [address], [facility] CO2 [Moles/Vol] 24 mmol/L Normal 21-31 [facility] Comment on above: Order Comment: No: D o not add to previous draw Performed By: #### 0 0071 ####[facility] [facility] [place] [address], [facility] Creatinine [Mass/Vol] 1.05 mg/dL Normal 0.60-1.20 [facility] Comment on above: Order Comment: No: D o not add to previous draw Performed By: #### 0 0071 ####[facility] [facility] [place] [address], [facility] eGFR- non- 51 ml/min/1.73sq m Abnormal >60 The [facility] Comment on above: Order Comment: No: D o not add to previous draw Result Comment: Calc ulation may not be valid for patients over 70 years Performed By: #### 0 0071 ####[facility] [facility] [place] [address], [facility] GFR/1.73 sq M.predicted among blacks MDRD (S/P/Bld) [Vol rate/Area] mL/min/{1.73_m2} Normal >60 [facility] Comment on above: Order Comment: No: D o not add to previous draw Result Comment: Calc ulation may not be valid for patients over 70 years Performed By: #### 0 0071 ####[facility] [id number], [facility] Glucose [Mass/Vol] 107 mg/dL High 70-100 The [facility] Comment on above: Order Comment: No: D o not add to previous draw Performed By: #### 0 0071 ####[facility] [id number], [facility] Potassium [Moles/Vol] 4.6 mmol/L Normal 3.5-5.1 The [facility] Comment on above: Order Comment: No: D o not add to previous draw Performed By: #### 0 0071 ####[facility] [facility] [address], [facility] Sodium [Moles/Vol] 134 mmol/L Low 136-145 The [facility] Comment on above: Order Comment: No: D o not add to previous draw Performed By: #### 0 0071 ####[facility] [facility] [place] [address], [facility] Urea nitrogen [Mass/Vol] 21 mg/dL Normal 7-25 The [facility] Comment on above: Order Comment: No: D o not add to previous draw Performed By: #### 0 0071 ####[facility] [facility] [place] [address], [facility] CBC W/DIFFon 04-26-2021 ABS IMM GRANS 0.0 10*3/uL Normal 0.0-0.2 The [facility] Comment on above: Order Comment: No: D o not add to previous draw Performed By: #### 5 3 #### [facility] [address] [place] [id number], [facility] ABS NEUTROPHILS 4.8 10*3/uL Normal 1.6-7.6 The [facility] Comment on above: Order Comment: No: D o not add to previous draw Performed By: #### 5 3 #### [facility] [address] [place] [address], [facility] Basophils (Bld) [#/Vol] 0.0 10*3/uL Normal 0.0-0.2 The [facility] Comment on above: Order Comment: No: D o not add to previous draw Performed By: #### 5 0103 #### [facility] [address] [place] [address], [facility] Basophils/100 WBC (Bld) 0.6 % Normal 0.0-1.0 T [facility] Comment on above: Order Comment: No: D o not add to previous draw Performed By: #### 5 0103 #### [facility] [address] [place] [address], [facility] Eosinophils (Bld) [#/Vol] 0.4 10*3/uL Normal 0.0-0.5 The [facility] Comment on above: Order Comment: No: D o not add to previous draw Performed By: #### 5 0103 #### [facility] [address] [place] [address], [facility] Eosinophils/100 WBC (Bld) 6.0 % Normal 0.0-6.0 The [facility] Comment on above: Order Comment: No: D o not add to previous draw Performed By: #### 5 0103 #### [facility] [address] [place] [address], [facility] Erythrocyte distribution width (RBC) [Ratio] 13.1 % Normal 11.5-15.0 The [facility] Comment on above: Order Comment: No: D o not add to previous draw Performed By: #### 5 0103 #### [facility] [address] [place] [address], [facility] Hematocrit (Bld) [Volume fraction] 27.8 % Low 36.0-45.0 The [facility] Comment on above: Order Comment: No: D o not add to previous draw Performed By: #### 5 0103 #### [facility] [address] [place] [address], [facility] Hemoglobin (Bld) [Mass/Vol] 9.0 g/dL Low 12.0-15.0 The [facility] Comment on above: Order Comment: No: D o not add to previous draw Performed By: #### 5 0103 #### [facility] [address] [place] [id number], [facility] IMMATURE GRANS 0.3 % Normal 0.0-1.0 The [facility] Comment on above: Order Comment: No: D o not add to previous draw Performed By: #### 5 0103 #### [facility] [address] [place] [address], [facility] Lymphocytes (Bld) [#/Vol] 0.7 10*3/uL Low 1.2-4.0 The [facility] Comment on above: Order Comment: No: D o not add to previous draw Performed By: #### 5 0103 #### [facility] [address] [place] [address], [facility] Lymphocytes/100 WBC (Bld) 9.8 % Low 20.0-45.0 The [facility] Comment on above: Order Comment: No: D o not add to previous draw Performed By: #### 5 0103 #### [facility] [address] [place] [address], [facility] MCH (RBC) [Entitic mass] 33.5 pg High 27.0-33.0 The [facility] Comment on above: Order Comment: No: D o not add to previous draw Performed By: #### 5 0103 #### [facility] [address] [place] [address], [facility] MCHC (RBC) [Mass/Vol] 32.4 g/dL Normal 32.0-35.0 The [facility] Comment on above: Order Comment: No: D o not add to previous draw Performed By: #### 5 0103 #### [facility] [address] [place] [id number], [facility] MCV (RBC) [Entitic vol] 103.3 fL High 82.0-98.0 T he [facility] Comment on above: Order Comment: No: D o not add to previous draw Performed By: #### 5 0103 #### [facility] [address] [place] [address], [facility] Monocytes (Bld) [#/Vol] 0.7 10*3/uL Normal 0.1-1.0 The [facility] Comment on above: Order Comment: No: D o not add to previous draw Performed By: #### 5 0103 #### [facility] [address] [place] [id number], [facility] MONOS 10.4 % Normal 5.0-12.0 The [facility] Comment on above: Order Comment: No: D o not add to previous draw Performed By: #### 5 0103 #### [facility] [address] [place] [id number], [facility] Neutrophils/100 WBC (Bld) 72.9 % High 40.0-72.0 The [facility] Comment on above: Order Comment: No: D o not add to previous draw Performed By: #### 5 0103 #### [facility] [address] [place] [id number], [facility] Nucleated RBC/100 WBC (Bld) [Ratio] 0 % Normal 0-0 The [facility] Comment on above: Order Comment: No: D o not add to previous draw Performed By: #### 5 0103 #### [facility] [address] [place] [address], [place] PLAT CNT 213 10*3/uL Normal 150-400 The [facility] Comment on above: Order Comment: No: D o not add to previous draw Performed By: #### 5 0103 #### [facility] [address] [place] [address], [facility] RBC (Bld) [#/Vol] 2.69 10*6/uL Low 3.80-5.00 The [facility] Comment on above: Order Comment: No: D o not add to previous draw Performed By: #### 5 0103 #### [facility] [address] [place] [address], [facility] WBC (Bld) [#/Vol] 6.62 10*3/uL Normal 4.00-10.60 The [facility] Comment on above: Order Comment: No: D o not add to previous draw Performed By: #### 5 0103 #### [facility] [address] [facility]. [place], [place] [id number] [place] [address] Cardiovascular Lab Reporton 04-26-2021 Cardiovascular Lab Report [facility] Patient Name: [facility] L MR #: [id number] Department of Physician: Enoch Frankel MD Medicine Service Date: 04/26/2021 Division of Birthdate: 1950 Cardiology Room #: [id number] Adult Cardiovascular Services [facility] [address] [place], [place] [address] Cardiovascular Laboratory Report PACEMAKER IMPLANT PROCEDURE NOTE [...] using modified seldinger technique using a 5 Indian micro-puncture needle on two occasions and 0.35 wires were placed. Local infiltration of 1% Lidocaine was performed, and an incision was created in the left upper chest. Dissection was then performed using cautery down to the fascial plane above the muscle and a small pocket was created for the device. 6 Indian Safesheaths were placed over the wire. An active fixation [employer] pacing lead was then delivered through the 6Fsheath to the right ventricle. After confirmation of lead position on orthogonal views (GONZALES and ZIMBABWEAN) to confirm septal position, the screw was activated, and the lead was placed in the right ventricular mid cavity towards the septum. After confirmation of good sensing parameters, injury pattern and pacing thresholds, 10V pacing was done and no diaphragmatic stimulation was noted. It was then secured in the pocket using three 1-0 Silk sutures. Then an active fixation [employer] lead was delivered through the 6Fsheath to the right atrial appendage. After confirmation of lead position on orthogonal views (GONZALES and ZIMBABWEAN), the screw was activated. RA lead was [...] Device info: Biotronik Edora Model# 8DRT Serial# [id number] RA lead: Model# [employer] Solia S53 Serial# [id number] Sensin.9mV Threshold: 1.1V@0.5ms Impedance: 429 Ohms RV lead: Model (more content not included)... Normal The [facility] BASIC METABOLIC PANELon 11- Calcium [Mass/Vol] 8.6 mg/dL Normal 8.6-10.3 [facility] Comment on above: Order Comment: No: D o not add to previous draw Performed By: #### 0 0071 ####[facility] [place] [address], [facility] Chloride [Moles/Vol] 101 mmol/L Normal 98-107 The [facility] Comment on above: Order Comment: No: D o not add to previous draw Performed By: #### 0 0071 ####[facility] [facility] [place] [address], [facility] CO2 [Moles/Vol] 24 mmol/L Normal 21-31 The [facility] Comment on above: Order Comment: No: D o not add to previous draw Performed By: #### 0 0071 ####[facility] [place] [address], [facility] Creatinine [Mass/Vol] 1.36 mg/dL High 0.60-1.20 The [facility] Comment on above: Order Comment: No: D o not add to previous draw Performed By: #### 0 0071 ####[facility] [place] [address], [facility] eGFR- 46 ml/min/1.73sq m Abnormal >60 The [facility] Comment on above: Order Comment: No: D o not add to previous draw Result Comment: Calc ulation may not be valid for patients over 70 years Performed By: #### 0 0071 ####[facility] [place] [address], [facility] eGFR- non- 39 ml/min/1.73sq m Abnormal >60 The [facility] Comment on above: Order Comment: No: D o not add to previous draw Result Comment: Calc ulation may not be valid for patients over 70 years Performed By: #### 0 0071 ####[facility] [place] [address], [facility] Glucose [Mass/Vol] 98 mg/dL Normal 70-100 The [facility] Comment on above: Order Comment: No: D o not add to previous draw Performed By: #### 0 0071 ####[facility] [facility] [place] [address], [facility] Potassium [Moles/Vol] 4.4 mmol/L Normal 3.5-5.1 The [facility] Comment on above: Order Comment: No: D o not add to previous draw Performed By: #### 0 0071 ####[facility] [place] [address], [place] Sodium [Moles/Vol] 132 mmol/L Low 136-145 The [facility] Comment on above: Order Comment: No: D o not add to previous draw Performed By: #### 0 0071 ####[facility] [place] [address], [facility] Urea nitrogen [Mass/Vol] 22 mg/dL Normal 7-25 The [facility] Comment on above: Order Comment: No: D o not add to previous draw Performed By: #### 0 0071 ####[facility] [place] [address], [facility] HEMATOCRITon 04-25-2021 Hematocrit (Bld) [Volume fraction] 28.3 % Low 36.0-45.0 The [facility] Comment on above: Order Comment: No: D o not add to previous draw Performed By: #### 5 7307, [id number] #### [facility] [address] [place] [address], [facility] HEMOGLOBINon 04-25-2021 Hemoglobin (Bld) [Mass/Vol] 9.0 g/dL Low 12.0-15.0 The [facility] Comment on above: Order Comment: No: D o not add to previous draw Performed By: #### 9 2097, 60943 #### [facility] [address] [place] [address], [facility] BASIC METABOLIC PANELon 04-12 Calcium [Mass/Vol] 8.8 mg/dL Normal 8.6-10.3 [facility] Comment on above: Order Comment: No: D o not add to previous draw Performed By: #### 1 0070, [id number] ####[facility] [place] [address], [place] Chloride [Moles/Vol] 101 mmol/L Normal 98-107 The [facility] Comment on above: Order Comment: No: D o not add to previous draw Performed By: #### 1 0, 64443 ####[facility] [place] [address], [place] CO2 [Moles/Vol] 26 mmol/L Normal 21-31 The [facility] Comment on above: Order Comment: No: D o not add to previous draw Performed By: #### 1 0070, 27699 ####[facility] [place] [address], [facility] Creatinine [Mass/Vol] 1.17 mg/dL Normal 0.60-1.20 [facility] Comment on above: Order Comment: No: D o not add to previous draw Performed By: #### 1 69, 47299 ####[facility] [place] [address], [facility] eGFR- 55 ml/min/1.73sq m Abnormal >60 [facility] Comment on above: Order Comment: No: D o not add to previous draw Result Comment: Calc ulation may not be valid for patients over 70 years Performed By: #### 1 69, 12911 ####[facility] [place] [address], [facility] eGFR- non- 45 ml/min/1.73sq m Abnormal >60 The [facility] Comment on above: Order Comment: No: D o not add to previous draw Result Comment: Calc ulation may not be valid for patients over 70 years Performed By: #### 1 69, 30188 ####[facility] [id number], [place] Glucose [Mass/Vol] 102 mg/dL High 70-100 The [facility] Comment on above: Order Comment: No: D o not add to previous draw Performed By: #### 1 69, 86650 ####[facility] [place] [address], [place] Potassium [Moles/Vol] 4.5 mmol/L Normal 3.5-5.1 [facility] Comment on above: Order Comment: No: D o not add to previous draw Performed By: #### 1 69, 62639 ####[facility] [place] [address], [place] Sodium [Moles/Vol] 133 mmol/L Low 136-145 The [facility] Comment on above: Order Comment: No: D o not add to previous draw Performed By: #### 1 69, 25583 ####[facility] [facility] [place] [address], [facility] Urea nitrogen [Mass/Vol] 20 mg/dL Normal 7-25 [facility] Comment on above: Order Comment: No: D o not add to previous draw Performed By: #### 1 69, 40888 ####[facility] [facility] [place] [address], [facility] HEMOGLOBINon 04-24-2021 Hemoglobin (Bld) [Mass/Vol] 10.0 g/dL Low 12.0-15.0 The [facility] Comment on above: Order Comment: Yes: Add to Previous draw if able NEEDS DRAWN. NO LAV TUBE FROM AM LABS Performed By: #### 9 9 #### [facility] [address] [facility] [place] [address], [facility] MAGNESIUM BLOODon 04-24-2021 Magnesium [Mass/Vol] 2.1 mg/dL Normal 1.9-2.7 [facility] Comment on above: Order Comment: No: D o not add to previous draw Performed By: #### 1 69, 22812 ####[facility] [facility] [place] [address], [facility] BASIC METABOLIC PANELon 04-12 Calcium [Mass/Vol] 8.4 mg/dL Low 8.6-10.3 The [facility] Comment on above: Order Comment: Unkno wn Performed By: #### 1 0070, 71050, 64364 ####[facility] [facility] [place] [address], [facility] Chloride [Moles/Vol] 100 mmol/L Normal 98-107 [facility] Comment on above: Order Comment: Unkno wn Performed By: #### 1 0, 34154, 33122 ####[facility] [facility] [place] [address], [facility] CO2 [Moles/Vol] 25 mmol/L Normal 21-31 [facility] Comment on above: Order Comment: Unkno wn Performed By: #### 1 0070, 97347, 76340 ####[facility] [facility] [place] [address], [facility] Creatinine [Mass/Vol] 1.30 mg/dL High 0.60-1.20 [facility] Comment on above: Order Comment: Unkno wn Performed By: #### 1 0070, 41202, 60996 ####[facility] [facility] [place] [address], [facility] eGFR- 49 ml/min/1.73sq m Abnormal >60 [facility] Comment on above: Order Comment: Unkno wn Result Comment: Calc ulation may not be valid for patients over 70 years Performed By: #### 1 0070, 14691, 46750 ####[facility] [facility] [place] [address], [facility] eGFR- non- 40 ml/min/1.73sq m Abnormal >60 The [facility] Comment on above: Order Comment: Unkno wn Result Comment: Calc ulation may not be valid for patients over 70 years Performed By: #### 1 0070, 77282, 86567 ####[facility] [facility] [address], [facility] Glucose [Mass/Vol] 93 mg/dL Normal 70-100 The [facility] Comment on above: Order Comment: Unkno wn Performed By: #### 1 0070, 72863, 84520 ####[facility] [facility] [place] [address], [place] Potassium [Moles/Vol] 4.1 mmol/L Normal 3.5-5.1 [facility] Comment on above: Order Comment: Unkno wn Performed By: #### 1 0070, 32160, 81336 ####[facility] [facility].[address] Sodium [Moles/Vol] 133 mmol/L Low 136-145 [facility] Comment on above: Order Comment: Unkno wn Performed By: #### 1 0, 03828, 07659 ####[facility] Urea nitrogen [Mass/Vol] 20 mg/dL Normal 7-25 [facility] Comment on above: Order Comment: Unkno wn Performed By: #### 1 0, 92857, 26142 ####[facility] CBC W/DIFFon 04-23-2021 ABS IMM GRANS 0.1 10*3/uL Normal 0.0-0.2 The [facility] Comment on above: Order Comment: Unkno wn Performed By: #### 5 010 #### [facility] [address] [place] [address], [facility] ABS NEUTROPHILS 7.8 10*3/uL High 1.6-7.6 The [facility] Comment on above: Order Comment: Unkno wn Performed By: #### 5 102 #### [facility] [address] [facility] [place] [address], [facility] Basophils (Bld) [#/Vol] 0.1 10*3/uL Normal 0.0-0.2 [facility] Comment on above: Order Comment: Unkno wn Performed By: #### 5 3 #### [facility] [address] [facility] [place] [address], [facility] Basophils/100 WBC (Bld) 0.5 % Normal 0.0-1.0 T he [facility] Comment on above: Order Comment: Unkno wn Performed By: #### 5 3 #### [facility] [address] [facility] [address], [facility] Eosinophils (Bld) [#/Vol] 0.4 10*3/uL Normal 0.0-0.5 [facility] Comment on above: Order Comment: Unkno wn Performed By: #### 5 0103 #### [facility] [address] [place] [address], [facility] Eosinophils/100 WBC (Bld) 3.5 % Normal 0.0-6.0 [facility] Comment on above: Order Comment: Unkno wn Performed By: #### 5 3 #### [facility] [address] [place] [address], [facility] Erythrocyte distribution width (RBC) [Ratio] 13.2 % Normal 11.5-15.0 [facility] Comment on above: Order Comment: Unkno wn Performed By: #### 5 0103 #### [facility] [address] [place] [address], [facility] Hematocrit (Bld) [Volume fraction] 29.2 % Low 36.0-45.0 [facility] Comment on above: Order Comment: Unkno wn Performed By: #### 5 0103 #### [facility] [address] [place] [address], [facility] Hemoglobin (Bld) [Mass/Vol] 9.3 g/dL Low 12.0-15.0 [facility] Comment on above: Order Comment: Unkno wn Performed By: #### 5 0103 #### [facility] [address] [address], [facility] IMMATURE GRANS 0.6 % Normal 0.0-1.0 The [facility] Comment on above: Order Comment: Unkno wn Performed By: #### 5 3 #### [facility] [address] [place] [address], [facility] Lymphocytes (Bld) [#/Vol] 0.7 10*3/uL Low 1.2-4.0 [facility] Comment on above: Order Comment: Unkno wn Performed By: #### 5 0103 #### [facility] [address] [place] [address], [facility] Lymphocytes/100 WBC (Bld) 6.8 % Low 20.0-45.0 [facility] Comment on above: Order Comment: Unkno wn Performed By: #### 5 0103 #### [facility] [address] MCH (RBC) [Entitic mass] 33.5 pg High 27.0-33.0 [facility] Comment on above: Order Comment: Unkno wn Performed By: #### 5 0103 #### [facility] [address] MCHC (RBC) [Mass/Vol] 31.8 g/dL Low 32.0-35.0 [facility] Comment on above: Order Comment: Unkno wn Performed By: #### 5 3 #### [facility] [address] [place] [address], [facility] MCV (RBC) [Entitic vol] 105.0 fL High 82.0-98.0 T [facility] Comment on above: Order Comment: Unkno wn Performed By: #### 5 3 #### [facility] [address] [place] [address], [facility] Monocytes (Bld) [#/Vol] 1.0 10*3/uL Normal 0.1-1.0 [facility] Comment on above: Order Comment: Unkno wn Performed By: #### 5 3 #### [facility] [address] [place] [address], [facility] MONOS 10.0 % Normal 5.0-12.0 [facility] Comment on above: Order Comment: Unkno wn Performed By: #### 5 3 #### [facility] [address] [place] [address], [facility] Neutrophils/100 WBC (Bld) 78.6 % High 40.0-72.0 [facility] Comment on above: Order Comment: Unkno wn Performed By: #### 5 0103 #### [facility] [address] [place] [id number], [facility] Nucleated RBC/100 WBC (Bld) [Ratio] 0 % Normal 0-0 [facility] Comment on above: Order Comment: Unkno wn Performed By: #### 5 0103 #### [facility] [address] [place] [address], [facility] PLAT CNT 227 10*3/uL Normal 150-400 [facility] [facility] Comment on above: Order Comment: Unkno wn Performed By: #### 5 0103 #### [facility] [address] [facility] [place] [address], [facility] RBC (Bld) [#/Vol] 2.78 10*6/uL Low 3.80-5.00 [facility] Comment on above: Order Comment: Unkno wn Performed By: #### 5 0103 #### [facility] [address] [facility] [place] [address], [facility] WBC (Bld) [#/Vol] 9.87 10*3/uL Normal 4.00-10.60 [facility] Comment on above: Order Comment: Unkno wn Performed By: #### 5 0103 #### [facility] [address] [facility] [place] [address], [facility] MAGNESIUM BLOODon 04-23-2021 Magnesium [Mass/Vol] 2.1 mg/dL Normal 1.9-2.7 [facility] Comment on above: Order Comment: Unkno wn Performed By: #### 1 0070, 62520, 26296 ####[facility] [place] [address], [facility] PHOSPHORUS BLOODon Phosphate [Mass/Vol] 2.8 mg/dL Normal 2.5-5.0 [facility] Comment on above: Order Comment: Unkno wn Performed By: #### 1 0070, 09787, 77291 ####[facility] APTTon 04-22-2021 aPTT Coag (Bld) [Time] 27.6 s Normal 25.0-35.0 [facility] Comment on above: Order Comment: [...] THIS PURPOSE. Performed By: #### 5 7307, 39262 #### [facility] [address] BASIC METABOLIC PANELon 04-12 Calcium [Mass/Vol] 8.8 mg/dL Normal 8.6-10.3 [facility] Comment on above: Order Comment: No: D o not add to previous draw Performed By: #### 4 1000, 40219, 09413, 89652 ####[facility] [facility] Chloride [Moles/Vol] 99 mmol/L Normal 98-107 [facility] Comment on above: Order Comment: No: D o not add to previous draw Performed By: #### 4 1000, 32220, 89203, 28084 ####[facility] [facility] [place] [address], [facility] CO2 [Moles/Vol] 27 mmol/L Normal 21-31 [facility] Comment on above: Order Comment: No: D o not add to previous draw Performed By: #### 4 1000, 46039, 23229, 81393 ####[facility] [place] [address], [facility] Creatinine [Mass/Vol] 1.39 mg/dL High 0.60-1.20 [facility] Comment on above: Order Comment: No: D o not add to previous draw Performed By: #### 4 1000, 32537, 47147, 46828 ####[facility] [place] [address], [facility] eGFR- 45 ml/min/1.73sq m Abnormal >60 [facility] Comment on above: Order Comment: No: D o not add to previous draw Result Comment: Calc ulation may not be valid for patients over 70 years Performed By: #### 4 1000, 14836, 78736, 29236 ####[facility] [place] [address], [facility] eGFR- non- 37 ml/min/1.73sq m Abnormal >60 [facility] Comment on above: Order Comment: No: D o not add to previous draw Result Comment: Calc ulation may not be valid for patients over 70 years Performed By: #### 4 1000, 17430, 92248, 94577 ####[facility] [place] [address], [facility] Glucose [Mass/Vol] 91 mg/dL Normal 70-100 The [facility] Comment on above: Order Comment: No: D o not add to previous draw Performed By: #### 4 1000, 63700, 24553, 73734 ####[facility] [place] [address], [facility] Potassium [Moles/Vol] 4.4 mmol/L Normal 3.5-5.1 [facility] Comment on above: Order Comment: No: D o not add to previous draw Performed By: #### 4 1000, 36402, 59913, 02273 ####[facility] Sodium [Moles/Vol] 133 mmol/L Low 136-145 [facility] Comment on above: Order Comment: No: D o not add to previous draw Performed By: #### 4 1000, 23387, 74960, 65856 ####[facility] Urea nitrogen [Mass/Vol] 24 mg/dL Normal 7-25 [facility] Comment on above: Order Comment: No: D o not add to previous draw Performed By: #### 4 1000, 00090, 02327, 03674 ####[facility] CBC W/DIFFon 04-22-2021 ABS IMM GRANS 0.0 10*3/uL Normal 0.0-0.2 The [facility] Comment on above: Performed By: #### 5 0103 #### [facility] [address] [place] [address], [facility] ABS NEUTROPHILS 5.8 10*3/uL Normal 1.6-7.6 [facility] Comment on above: Performed By: #### 5 0103 #### [facility] [address] [place] [address], [facility] Basophils (Bld) [#/Vol] 0.1 10*3/uL Normal 0.0-0.2 [facility] Comment on above: Performed By: #### 5 0103 #### [facility] [address] [place] [address], [facility] Basophils/100 WBC (Bld) 0.6 % Normal 0.0-1.0 [facility] Comment on above: Performed By: #### 5 0103 #### [facility] [address] [place] [address], [facility] Eosinophils (Bld) [#/Vol] 0.2 10*3/uL Normal 0.0-0.5 [facility] Comment on above: Performed By: #### 5 0103 #### [facility] [address] [place] [address], [facility] Eosinophils/100 WBC (Bld) 2.7 % Normal 0.0-6.0 [facility] Comment on above: Performed By: #### 5 0103 #### [facility] [address] [facility] [place] [address], [facility] Erythrocyte distribution width (RBC) [Ratio] 13.0 % Normal 11.5-15.0 [facility] Comment on above: Performed By: #### 5 0103 #### [facility] [address] [facility] [place] [address], [facility] Hematocrit (Bld) [Volume fraction] 29.2 % Low 36.0-45.0 [facility] Comment on above: Performed By: #### 5 0103 #### [facility] [address] [facility] [place] [address], [facility] Hemoglobin (Bld) [Mass/Vol] 9.6 g/dL Low 12.0-15.0 [facility] Comment on above: Performed By: #### 5 0103 #### [facility] [address] [place] [address], [facility] IMMATURE GRANS 0.5 % Normal 0.0-1.0 The [facility] Comment on above: Performed By: #### 5 0103 #### [facility] [address] [facility] [place] [address], [facility] Lymphocytes (Bld) [#/Vol] 1.1 10*3/uL Low 1.2-4.0 [facility] Comment on above: Performed By: #### 5 0103 #### [facility] [address] [place] [address], [facility] Lymphocytes/100 WBC (Bld) 13.4 % Low 20.0-45.0 [facility] Comment on above: Performed By: #### 5 0103 #### [facility] [address] [place] [address], [facility] MCH (RBC) [Entitic mass] 33.1 pg High 27.0-33.0 [facility] Comment on above: Performed By: #### 5 0103 #### [facility] [address] [facility] [place] [address], [facility] MCHC (RBC) [Mass/Vol] 32.9 g/dL Normal 32.0-35.0 [facility] Comment on above: Performed By: #### 5 0103 #### [facility] [address] [place] [address], [facility] MCV (RBC) [Entitic vol] 100.7 fL High 82.0-98.0 T [facility] Comment on above: Performed By: #### 5 0103 #### [facility] [address] [place] [address], [facility] Monocytes (Bld) [#/Vol] 0.7 10*3/uL Normal 0.1-1.0 [facility] Comment on above: Performed By: #### 5 3 #### [facility] [address] MONOS 9.1 % Normal 5.0-12.0 [facility] Comment on above: Performed By: #### 5 3 #### [facility] [address] Neutrophils/100 WBC (Bld) 73.7 % High 40.0-72.0 [facility] Comment on above: Performed By: #### 5 3 #### [facility] [address] [place] [address], [facility] Nucleated RBC/100 WBC (Bld) [Ratio] 0 % Normal 0-0 [facility] Comment on above: Performed By: #### 5 0103 #### [facility] [address] [place] [address], [facility] PLAT CNT 234 10*3/uL Normal 150-400 [facility] Comment on above: Performed By: #### 5 0103 #### [facility] [address] [place] [address], [facility] RBC (Bld) [#/Vol] 2.90 10*6/uL Low 3.80-5.00 [facility] Comment on above: Performed By: #### 5 0103 #### [facility] [address] [facility] [place] [address], [facility] WBC (Bld) [#/Vol] 7.81 10*3/uL Normal 4.00-10.60 [facility] Comment on above: Performed By: #### 5 0103 #### [facility] [address] [facility] [place] [address], [facility] FERRITINon 04-22-2021 Ferritin [Mass/Vol] 74 ng/mL Normal 11-307 [facility] Comment on above: Order Comment: No: D o not add to previous draw Performed By: #### 8 4044, 45284, 45000, 94048, 32118, 94945 ####[facility] FOLATE SERUMon 04-22-2021 SERUM FOLATE 29.00 ng/mL Normal 6.60-1000.0 0 [facility] Comment on above: Order Comment: No: D o not add to previous draw Result Comment: Norm al range reflects World Health Organization International Standard Performed By: #### 8 4044, 29140, 00967, 93895, 04727, 31698 ####[facility] HAPTOGLOBINon 04-22-2021 HAPTOGLOBIN 302 mg/dL High 26-164 [facility] Comment on above: Order Comment: No: D o not add to previous draw Performed By: #### 3 0103 #### [address] [address], [facility] KNEE LEFT 1 OR 2 Son 04-22 KNEE LEFT 1 OR 2 [facility] Department of Radiology [address] [place] [id number] Patient Name: LINDA NASCIMENTO : 1950 Sex: F Age: Race: White Pt. Location: [id number] Patient Status: I Ordered Date: 04/22/2021 2:30:00 AM Completed Date: 04/22/2021 02:52 AM Requesting Provider: GUNNAR CHRISTIANSON Attending Provider: ROBERTA VELA Report Copy To: Signs & Symptoms: Pain ( specify Location) History: See Comments Comments: evaluate for FX Exam: KNEE LEFT 1 OR 2 [facility] KNEE LEFT 1 OR 2 S [...] fracture Approved by:Nithin Burnette04/22/2021 2:56 AM. I, oBris Jara,have reviewed the image(s) and agree with the findings in this report. Electronically signed: Boris Jara. Transcribed by: [email or web address], User Resident: NITHIN GARAY Electronically Signed by: BORIS JARA @ 04/22/2021 03:09 AM I personally read this/these film(s) with this resident Normal [facility] Comment on above: Order Comment: No: D o not add to previous draw KNEE RIGHT 1 OR 2 VWSon 04-12 KNEE RIGHT 1 OR 2 VWS [facility] Department of Radiology [address] [place] [id number] Patient Name: LINDA NASCIMENTO : 1950 Sex: F Age: Race: White Pt. Location: [id number] Patient Status: I Ordered Date: 04/22/2021 2:30:00 [...] report. Electronically signed: Boris Jara. Transcribed by: [email or web address], User Resident: NITHIN GARAY Electronically Signed by: BORIS JARA @ 04/22/2021 03:09 AM I personally read this/these film(s) with this resident Normal [facility] Comment on above: Order Comment: No: D o not add to previous draw LDH BLOODon 04-22-2021 LDH 232 Units/L Normal 140-271 [facility] Comment on above: Order Comment: No: D o not add to previous draw Performed By: #### 8 4044, 49163, 32829, 30921, 47233, 69458 ####[facility] LIVER BATTERYon 04-22-2021 Albumin [Mass/Vol] 3.9 g/dL Normal 3.5-5.7 [facility] Comment on above: Order Comment: No: D o not add to previous draw Performed By: #### 5 7307, 19106 #### [facility] [address] [place] [address], [facility] ALKALINE PHOSPH 74 IU/L Normal 34-104 [facility] Comment on above: Order Comment: No: D o not add to previous draw Performed By: #### 5 7307, 93927 #### [facility] [address] [place] [address], [facility] ALT [Catalytic activity/Vol] 9 U/L Normal 7-52 [facility] Comment on above: Order Comment: No: D o not add to previous draw Performed By: #### 5 7307, 20711 #### [facility] [address] [place] [address], [place] AST [Catalytic activity/Vol] 19 U/L Normal 13-39 [facility] Comment on above: Order Comment: No: D o not add to previous draw Performed By: #### 5 7307, 16203 #### [facility] [address] [place] [address], [place] Bilirubin [Mass/Vol] 0.5 mg/dL Normal 0.3-1.0 [facility] Comment on above: Order Comment: No: D o not add to previous draw Performed By: #### 5 7307, 71199 #### [facility] [address] [place] [address], [place] Bilirubin.direct [Mass/Vol] 0.1 mg/dL Normal 0.0-0.2 [facility] Comment on above: Order Comment: No: D o not add to previous draw Performed By: #### 5 7307, 49081 #### [facility] [address] [place] [address], [place] Protein [Mass/Vol] 6.5 g/dL Normal 6.0-8.3 [facility] Comment on above: Order Comment: No: D o not add to previous draw Performed By: #### 5 7307, 56741 #### [facility] [address] [place] [address], [place] MAGNESIUM BLOODon 04-22-2021 Magnesium [Mass/Vol] 2.0 mg/dL Normal 1.9-2.7 [facility] Comment on above: Order Comment: No: D o not add to previous draw Performed By: #### 4 1000, 24218, 14169, 26694 ####[facility] [place] [address], [facility] PERIPHERAL SMEARon 1 Nucleated RBC/100 WBC (Bld) [Ratio] 0 % Normal 0-0 [facility] Comment on above: Order Comment: No: D o not add to previous draw Performed By: #### 5 7307, 86044 #### [facility] [address] [place] [address], [facility] OTHER PS1 Macrocytic anemia with no significant RBC morphology. Normal [facility] Comment on above: Order Comment: No: D o not add to previous draw Performed By: #### 5 73, 95653 #### [facility] [address] [place] [id number], [facility] OTHER PS2 Check serum B12 and folate. Normal [facility] Comment on above: Order Comment: No: D o not add to previous draw Performed By: #### 5 73, 10006 #### [facility] [address] [place] [address], [facility] OTHER PS3 Otherwise unremarkable leukocytes and platelets. Normal [facility] Comment on above: Order Comment: No: D o not add to previous draw Performed By: #### 5 7307, 50295 #### [facility] [address] [place] [address], [facility] OTHER PS4 Normal [facility] Comment on above: Order Comment: No: D o not add to previous draw Result Comment: Chec ked by Mayra Encinas M.D. Performed By: #### 5 7307, 95807 #### [facility] [address] [place] [address], [place] PHOSPHORUS BLOODon 1 Phosphate [Mass/Vol] 3.4 mg/dL Normal 2.5-5.0 [facility] Comment on above: Order Comment: No: D o not add to previous draw Performed By: #### 5 7307, 34120 #### [facility] [address] [place] [address], [place] PROTHROMBIN TIMEon 1 INR Coag (PPP) [Relative time] 1.01 {INR} Normal 0.91-1.16 [facility] Comment on above: Order Comment: No: D o not add to previous draw Result Comment: ACC P RECOMMENDED INR FOR WARFARIN THERAPY ------- [...] CHEST 1995;108:[id number]. Performed By: #### 5 7307, 46217 #### [facility] [address] [facility]. [address] PT Coag (PPP) [Time] 13.3 s Normal 12.3-14.8 [facility] Comment on above: Order Comment: No: D o not add to previous draw Result Comment: ALL RESULTS MUST BE INTERPRETED WITH RESPECT TO BLOOD DRAWING ARTIFACT OR DILUTION ERROR OF ANTICOAGULANT AT THE TIME OF SAMPLING. Performed By: #### 5 7307, 11880 #### [facility] [address] RETICULOCYTE PANELon 021 ABSOLUTE RETICULOCYTE 0.0711 10*6/uL Normal 0.02 50-0.10 00 [facility] Comment on above: Order Comment: No: D o not add to previous draw Performed By: #### 5 7307, 65490 #### [facility] [address] [place] [address], [facility] IMMATURE RETICULOCYTE FRACTION 12.8 % Normal 2.0-16.0 [facility] Comment on above: Order Comment: No: D o not add to previous draw Performed By: #### 5 7307, 31859 #### [facility] [address] [place] [address], [facility] RETIC COUNT 2.37 % High 0.50-1.80 [facility] Comment on above: Order Comment: No: D o not add to previous draw Performed By: #### 5 7307, 29827 #### [facility] [address] [place] [address], [facility] RETICULOCYTE HEMOGLOBIN 37.5 pg High 28.0-36.0 [facility] Comment on above: Order Comment: No: D o not add to previous draw Performed By: #### 5 7307, 44106 #### [facility] [address] TIBC- INCLUDES IRONon 2020 FE SATURATION 16 % Low 20-50 [facility] Comment on above: Order Comment: No: D o not add to previous draw Performed By: #### 8 4044, 93901, 33902, 07905, 95731, 44941 ####[facility] [facility] Iron [Mass/Vol] 54 ug/dL Normal 50-212 [facility] Comment on above: Order Comment: No: D o not add to previous draw Performed By: #### 8 4044, 15064, 54650, 78514, 43911, 94064 ####[facility] TIBC 332 mcg/dL Normal 250-450 [facility] Comment on above: Order Comment: No: D o not add to previous draw Performed By: #### 8 4044, 91604, 91282, 02479, 68635, 59379 ####[facility] [facility].[address] UIBC 278 mcg/dL Normal 155-355 [facility] Comment on above: Order Comment: No: D o not add to previous draw Performed By: #### 8 4044, 53250, 40013, 27531, 14155, 59709 ####[facility] TSH3 WITH REFLEX FT4on 04-22 TSH 3RD GENERATION 1.72 uIU/mL Normal 0.34-5.60 [facility] Comment on above: Performed By: #### 8 4044, 40100, 23296, 63234, 36150, 63208 ####[facility] VITAMIN B12on 04-22-2021 Cobalamin (Vitamin B12) [Mass/Vol] 771 pg/mL Normal 180-914 [facility] Comment on above: Order Comment: No: D o not add to previous drawPt using restroom Result Comment: REFE RENCE RANGES: 180-914 pg/mL Normal 145-179 pg/mL Indeterminate <145 pg/mL Deficient Performed By: #### 8 4044, 74156, 65179, 83928, 01977, 02274 ####[facility] Vital Signs Date Time Vital Sign Value Performing Clinician Faci lity 10-06-2021 14:00-0400 Body height 165.1 cm Gunnar Fernandez Other [employer] Other 10-06-2021 14:00-0400 Body mass index (BMI) [Ratio] 40.77 kg/m2 Gunnar Fernandez Other [employer] Other 10-06-2021 14:00-0400 Body weight 111.13 kg Gunnar Fernandez Other [employer] Other Encounters Encounter Date Encounter Type Care Provider Facility Start: 01-13-2025 End: 01-15-2025 Evaluation and management of inpatient Jarrod Mahajan [facility] Start: 01-13-2025 Emergency department patient visit Facility[facility] Start: 01-06-2025 ambulatory [facility] Start: 12-31-2024 End: 12-31-2024 ambulatory [facility] Start: 10-21-2024 ambulatory [facility] Start: 10-04-2024 ambulatory [facility] Start: 07-31-2024 End: 07-31-[address] Mehta MD Work Phone: [facility] [address] Work Phone: Start: 07-31-2024 End: 07-31-[address] Mehta MD Work Phone: [facility] Work Phone: Start: 05-21-2024 End: 05-21-2024 ambulatory [facility] Start: 03-20-2023 End: 03-21-2023 ambulatory Ирина Gibson MD Facility:[facility] Start: 01-23-2023 End: 01-24-2023 ambulatory Ирина Gibson MD Facility:[facility] Start: 01-09-2023 End: 01-10-2023 ambulatory Ирина Gibson MD Facility:[facility] Start: 12-12-2022 End: 12-13-2022 ambulatory Ирина Gibson MD Facility:[facility] Start: 10-25-2022 ambulatory LEÓN Ruiz lity:H1 Start: 10-14-2022 End: 10-14-2022 ambulatory LEONIE COYLE Facility:[facility]1 Start: 09-23-2022 End: 09-24-2022 ambulatory [facility] Mallory [facility] Facility:H1 Start: 09-14-2022 End: 09-15-[address] . Facility:[facility]1 Start: 09-02-2022 End: 09-03-2022 ambulatory LEÓN Tejada [facility] Facility:H1 Start: 08-08-2022 End: 08-09-[address]HT[address] . Facility:[facility]1 Start: 07-18-2022 End: 07-19-2022 ambulatory [facility] Mallory [facility] Facility:H1 Start: 06-30-2022 End: 07-01-[address] MEHT[address] . Facility:[facility]1 Start: 06-09-2022 End: 06-10-[address] MEHT[address] . Facility:[facility]1 Start: 05-23-2022 End: 05-23-[address] MEHT[address] . Facility:[facility]1 Start: 05-02-2022 ambulatory LEÓN Tejada [facility] Faci lity:H1 Start: 04-23-2022 End: 04-23-[address] MARINO FERNANDEZ Facility:H1 Start: 04-22-2022 End: 04-22-[address] TIMUR SPIVEY . Facility:H1 Start: 04-21-2022 End: 04-22-[address] MEHT[address] . Facility:H1 Start: 04-08-2022 End: 04-09-2022 ambulatory [facility] Facility:H1 Start: 03-30-2022 End: 03-30-2022 ambulatory Rancho Chamorro Other [employer] Other Start: 03-30-2022 Telephone encounter Rancho Chamorro [facility] Start: 03-28-2022 End: 03-29-[address]HT[address] . Facility:H1 Start: 03-27-[address] MEHT[address] . Facili ty:H1 Start: 03-24-2022 Office outpatient vi sit 25 minutes Rancho Chamorro [facility] Start: 03-24-2022 End: 04-03-2022 ambulatory UNKNOWN PROVIDER [employer] Other Start: 03-16-2022 End: 03-16-2022 ambulatory Rancho Chamorro Other [employer] Other Start: 03-16-2022 Telephone encounter Rancho BAKER [facility] Start: 03-11-2022 End: 03-12-2022 ambulatory LEÓN Tejada [facility] Facility:H1 Start: 02-18-2022 End: 02-19-2022 ambulatory LEÓN Tejada [facility] Facility:H1 Start: 02-11-2022 End: 02-12-[address] MEHT[address] . Facility:H1 Start: 01-28-2022 End: 01-29-2022 ambulatory LEÓN Tejada [facility] Facility:H1 Start: 01-11-2022 End: 01-12-[address] MEHT[address] . Facility:H1 Start: 01-04-2022 End: 01-05-2022 [facility] Start: 12-23-2021 End: 12-23-2021 ambulatory Rancho Chamorro Other [employer] Other Start: 12-23-2021 Office outpatient vi sit 25 minutes Rancho Chamorro [facility] Start: 12-20-2021 End: 12-21-2021 ambulatory LEÓN Tejada [facility] Facility:H1 Start: 12-13-2021 End: 12-14-2021 Evaluation and management of inpatient DR A[facility] MEHTA . Facility:H1 Start: 12-07-2021 Encounter for preprocedural cardiovascular examination LEÓN DIAS [facility] Start: 12-06-2021 End: 12-06-2021 ambulatory LEÓN Tejada [facility] Facility:H1 Start: 12-05-2021 End: 12-05-[address] MEHTA . Facility:H1 Start: 12-02-2021 End: 12-03-2021 ambulatory LEÓN Tejada [facility] Facility:H1 Start: 12-02-2021 End: 12-03-2021 Encounter for [facility]procedural cardiovascular [facility] Start: 11-30-2021 End: 12-01-2021 ambulatory LEÓN Tejada [facility] Facility:H1 Start: 11-29-2021 End: 11-29-2021 ambulatory MIRNA PARSONS . Facility: Start: 11-17-2021 End: 11-17-2021 ambulatory Rancho Reemanubia Other [employer] Other Start: 11-17-2021 Office outpatient vi sit 15 minutes Emilie Perez [facility] Start: 11-17-2021 Telephone encounter Rancho BAKER [facility] Start: 11-04-2021 End: 11-04-2021 ambulatory Rancho Chamorro Other [employer] Other Start: 11-04-2021 Telephone encounter Rancho BAKER G [facility] Start: 11-03-2021 (Procedure) Short Rancho Chamorro [facility] Start: 11-03-2021 End: 11-03-2021 ambulatory Rancho Chamorro Other [employer] Other Start: 11-03-2021 Office outpatient vi sit 25 minutes Emilie Perez [facility] Start: 10-28-2021 End: 10-28-2021 ambulatory Rancho Chamorro Other [employer] Other Start: 10-28-2021 Office outpatient vi sit 25 minutes Rancho Chamorro [facility] [place] Start: 10-07-2021 End: 10-07-2021 ambulatory Gunnar Fernandez Other [employer] Other Start: 10-07-2021 Telephone encounter Gunnar BAKER G [facility] Start: 10-06-2021 End: 10-06-2021 ambulatory Gunnar Fernandez Other [employer] Other Start: 10-06-2021 Office outpatient vi sit 15 minutes Gunnar Fernandez [facility] Start: 09-08-2021 End: 09-08-2021 ambulatory Gunnar Fernandez Other [employer] Other Start: 09-08-2021 Office outpatient vi sit 15 minutes Gunnar Rebecca [facility] Start: 04-22-2021 End: 04-29-2021 Evaluation and management of inpatient ROBERTA DANE Facility:[facility] Procedures Date Procedure Procedure Detail Performing Clinician Start: 12-12-2021 Transfusion of Nonau tologous Red Blood Cells into Peripheral Vein, Percutaneous Approach DR A[facility] MEHTA . Plan of Treatment Date Care Activity Detail Author Start: 07-31-2024 Aldolase measurement [facility] Start: 07-31-2024 Hemolytic complement CH50 level [facility] Start: 07-31-2024 Hepatitis B core ant ibody measurement [facility] Start: 07-31-2024 [facility] Angiotensin converti ng enzyme [Enzymatic activity/volume] in Serum or Plasma [facility] Chromatin Ab [Units/ volume] in Serum or Plasma [facility] Complement C3 [Mass/ volume] in Serum or Plasma [facility] Complement C4 [Mass/ volume] in Serum or Plasma [facility] Hepatitis B virus hernandez rface Ab [Presence] in Serum [facility] Hepatitis B virus hernandez rface Ag [Presence] in Serum or Plasma by Immunoassay [facility] Hepatitis C virus Ig G Ab [Presence] in Serum or Plasma by Immunoassay [facility] Homogenous nuclear A b pattern [Titer] in Serum [facility] Nuclear Ab [Titer] in Serum [facility] Reagin Ab [Presence] in Serum by RPR [facility] Thyroglobulin Ab [Un its/volume] in Serum or Plasma [facility] Thyroperoxidase Ab [ Units/volume] in Serum or Plasma [facility] Immunizations Immunization Date Immunization Notes Care Provider Fa cility 07-13-2020 COVID-19 mRNAAnayeliirnatmilo (Pf[employer]) Ave Mehta MD Work Phone: [facility] 06-19-2020 COVID-19 mRNASarah (Pfizer) Ave Mehta MD Work Phone: [facility] Payers Date Payer Category Payer Medicare [id number] 2025 Unknown [id number] 2024 Self-pay 2023 Medicaid [id number] 2022 Medicare 2022 Unknown 2002 Medicare [id number] 1959 Medicare [id number] 1959 Self-pay [id number] 1959 Unknown [id number] 1948 Unknown [id number] 2.16.8 40.1.426137.3.579.2.647 1948 Unknown [id number] 2.16. 840.1.090244.3.579.2.732 1948 Unknown [id number] 2.16.84 0.1.894877.3.579.2.593 1948 Unknown [id number] 2.16.84 0.1.935966.3.579.2.593 1948 Unknown [id number] 2.16.84 0.1.301146.3.579.2.593 1948 Unknown [id number] 2.16.84 0.1.488960.3.579.2.593 1948 Unknown [id number] 2.16.84 0.1.953437.3.579.2.593 1948 Unknown [id number] 2.16.84 0.1.222330.3.579.2.593 1948 Unknown [id number] 2.16.84 0.1.657291.3.579.2.593 1948 Unknown [id number] 2.16.84 0.1.810199.3.579.2.593 1948 Unknown [id number] 2.16.84 0.1.095701.3.579.2.593 1948 Unknown [id number] 2.16.84 0.1.960048.3.579.2.593 1948 Unknown [id number] 2.16.84 0.1.214748.3.579.2.593 1948 Unknown [id number] 2.16.84 0.1.434684.3.579.2.593 1948 Unknown [id number] 2.16.84 0.1.033068.3.579.2.593 1948 Unknown [id number] 2.16.84 0.1.621959.3.579.2.593 1948 Unknown [id number] 2.16.84 0.1.291077.3.579.2.593 1948 Unknown [id number] 2.16.84 0.1.403218.3.579.2.593 1948 Unknown [id number] 2.16.84 0.1.006474.3.579.2.593 1948 Unknown [id number] 2.16.84 0.1.005633.3.579.2.593 1948 Unknown [id number] 2.16.84 0.1.206951.3.579.2.593 1948 Unknown [id number] 2.16.84 0.1.228541.3.579.2.593 1948 Unknown [id number] 2.16.84 0.1.732070.3.579.2.593 1948 Unknown [id number] 2.16.84 0.1.712319.3.579.2.593 1948 Unknown [id number] 2.16.84 0.1.616509.3.579.2.593 1948 Unknown [id number] 2.16.84 0.1.427129.3.579.2.593 1948 Unknown [id number] 2.16.84 0.1.483438.3.579.2.593 1948 Unknown [id number] 2.16.84 0.1.255266.3.579.2.593 1948 Unknown [id number] 2.16.84 0.1.238569.3.579.2.593 1948 Unknown [id number] 2.16.84 0.1.291682.3.579.2.593 1948 Unknown [id number] 2.16. 840.1.257285.3.579.2.196 1948 Unknown [id number] 2.16. 840.1.972786.3.579.2.196 1948 Unknown [id number] 2.16. 840.1.830681.3.579.2.196 1948 Unknown [id number] 2.16. 840.1.184105.3.579.2.196 1948 Unknown [id number] 2.16.8 40.1.834256.3.579.2.727 1948 Unknown [id number] 2.16.8 40.1.864172.3.579.2.727 1948 Unknown [id number] 2.16.8 40.1.368482.3.579.2.727 1948 Unknown [id number] 2.16.8 40.1.556038.3.579.2.727 1948 Unknown [id number] 2.16.8 40.1.948169.3.579.2.727 1948 Unknown [id number] 2.16.8 40.1.981747.3.579.2.727 Unknown [id number] 2.16.84 0.1.179706.3.579.2.593 Unknown [id number] 2.16.8 40.1.390000.3.579.2.531 Social History Date Type Detail Facility Sex Assigned At [employer] Other Start: 11[facility]07-2021 [facility] Start: 08-01-2024 Sex Female (finding) [facility] Start: 1950 Sex Assigned At Female F [facility] Clinical Notes 04-29-2021 to 01-20-2025 Note Date & Type Note Facility 01-20-2025 Note Microbiology PROCEDURE: Blood Culture Charcoal [R1] SOURCE: Blood BODY SITE: Wrist L COLLECTED DATE/TIME: 01/13/2025 14:59 EDT RECEIVED DATE/TIME: 01/13/2025 15:10 EDT START DATE/TIME: 01/13/2025 15:10 EDT FREE TEXT SOURCE: Bobo Ashraf, Brittny Broussard M.D., Brittny Mejia FINAL REPORTS Final Report [] Verified Date/Time: 01/20/2025 15:55 EDT No growth at 7 days. Performing Locations R1: This test was performed at: [facility], [address] [place] [address], [facility] Comment on above: Performed By: #### 1 [id number] #### [facility] [address] [place] [address] 01-20-2025 Note Microbiology PROCEDURE: Blood Culture Charcoal [R1] SOURCE: Blood BODY SITE: Wrist R COLLECTED DATE/TIME: 01/13/2025 15:02 EDT RECEIVED DATE/TIME: 01/13/2025 15:10 EDT START DATE/TIME: 01/13/2025 15:10 EDT FREE TEXT SOURCE: Bobo Ashraf, Brittny Broussard M.D., Brittny Mejia FINAL REPORTS Final Report [] Verified Date/Time: 01/20/2025 15:55 EDT No growth at 7 days. Performing Locations R1: This test was performed at: [facility], [address] [place] [address], [facility] Comment on above: Performed By: #### 1 [id number] #### [facility] [address] [place] [address] 01-15-2025 Note Discharge Summary Admission and Discharge Information Admit Date/Time:01/13/2025 15:12 Admitting Physician - Jarrod Mahajan III, DO Consulting Physician - Marino Roe MD [facility] [place] Admitting Diagnoses: Discharge Diagnoses 1. Sepsis, 01/13/2025 2. Pneumonia, 01/13/2025 3. Acute hypoxic respiratory failure, 01/13/2025 4. Chronic heart failure with preserved ejection fraction (HFpEF), 01/14/2025 5. Stroke-like symptoms, 01/13/2025 6. Aphasia, 01/13/2025 7. CKD stage 3b, GFR 30-44 ml/min, 01/13/2025 8. Bipolar affective, 01/13/2025 9. Morbid obesity with BMI of 40.0-44.9, adult, 01/13/2025 10. History of atrial fibrillation, 01/13/2025 11. Pacemaker, 01/13/2025 12. Chronic GERD, 01/13/2025 Potential stroke, 01/13/2025 Syncope/Near syncope, 01/13/2025 Weakness or fatigue, 01/13/2025 Hospital Course The patient is a 74-year-old female the patient is a 74-year-old female with past medical history of morbid obesity (BMI greater than 40), CKD 3B (baseline creatinine 1.16 July 2024), lumbar spondylosis, history of GI bleeding, history of SIADH, bipolar disorder, A-fib, history of bilateral lower extremity venous stasis ulcers and lower extremity cellulitis, CAD, history of seizures, venous insufficiency, history of permanent pacemaker, GERD, sarcoidosis, HTN, vitamin D deficiency who was brought to [facility] on 01/13[facility]20[facility]. Stroke alert was called in the ER. CT brain was negative. Unresponsiveness: Neurology consulted. Patient underwent MRA of head and neck and MRI brain which were unremarkable and showed chronic white matter changes with no significant stenosis or aneurysmal dilatation. Her mentation was excellent throughout her stay. She was noted to have a flat affect and did endorse auditory hallucinations that have been chronic for the past 2 years. Does have mild parkinsonism that neurology discussed could be probably related to her olanzapine usage. She also reported thinking that she had plastic in her mouth there was no plastic on exam or on any imaging of her head or neck. Suspect this may be partially related to hallucinations as well. Recommended dentist follow-up and offered patient reassurance. She voiced her understanding. Cleared for discharge from neurologic perspective and at baseline on discharge. Sepsis: Treated for recent pneumonia at [place] possibly aspiration. Also has chronic lower extremity wounds. Met sepsis criteria with source being either lower extremity wounds and/or pneumonia. Started on Vanco, Zosyn, azithromycin. Vancomycin discontinued as nasal MRSA screening was negative. Patient's white blood cell count down trended. Patient was still on oxygen from her previous admission at [place]. She completed 3 days of azithromycin IV while inpatient and 3 days of Zosyn. Patient did not have significant cough enough to produce a sputum culture. Preliminary blood cultures negative. Respiratory PCR and COVID testing were negative. Antibiotics were de-escalated to Augmentin for an additional 5 days on discharge. On a modified diet for possible aspiration and speech reevaluated her during her inpatient stay and recommended continuing her current diet. Medically stable for discharge back to facility on 01/15/2025 Follow-up Facility physician/PCP in 7 to 10 days Recommend continued follow-up with wound care Medication changes No chronic medication changes Discharged on Augmentin twice daily x 5 days to complete 1 week course of antibiotics Services Consulted Consult to Neurology - Ordered -- 01/13/25 15:16:00 EDT, stroke-like symptoms - unresponsive, expressive aphasia, Consult and Co-manage Consult to Wound Care - Completed -- 01/13/25 19:19:00 EDT, wound, Consult and Co-manage Consult to Wound Care - Completed -- 01/13/25 21:21:00 EDT, Chronic venous stasis wounds, LLE, Consult and Co-manage Physical Exam Vitals & Measurements T: 36.8 ???C(Oral) TMIN: 36.6 ???C(Oral) TMAX: 36.9 ???C(Oral) HR: 69(Monitored) RR: 18 BP: 130/81 SpO2: 96% WT: 118.9 kg General: alert, no acute distress, pleasant and conversational, flat affect Skin: warm, dry Head: no trauma, normocephalic Neck: Trachea midline, no adenopathy, no tenderness Eye: normal conjunctiva, sclera clear ENMT: oral mucosa moist, normal oropharynx Cardiovascular: regular rate and rhythm, normal peripheral perfusion Respiratory: Lungs CTA, crackles RUL, respirations non labored Chest wall: no deformity. Gastrointestinal: soft, non distended, no tenderness, no guarding. Extremities: no deformity, no trauma, chronic stasis dermatitis, BL LE edema, L ant calf wound w cellulitic changes Neurological: oriented x 4, LOC appropriate for age, CN II-XII intact, motor strength equal & normal bilaterally, sensation equal & normal bilaterally, speech normal Psychiatric: cooperative, affect flat, normal judgement, hallucinogenic (auditory) psychiatric thoughts. Tests Performe (more content not included)... [facility] Comment on above: Result Comment: Elec tronically Signed By: Jarrod Mahajan III, DO\.br\Date and Time Signed: 01/15/25 11:03 EDT 01-15-2025 Note Progress Note-Physic jessica Assessment/Plan ASSESSMENT: Reportedly unresponsive at the [place]. Not sure what this means. I do not think she lost consciousness. She reportedly had some speech changes or intermittent unintelligible mumbling. Upon arrival here it sounds like she was at her cognitive baseline. She has a flat affect, hypophonic and monotone speech. Mild parkinsonism with some mild bradykinesia and mild increased tone (and the hypophonic speech), probably related to her olanzapine usage. Chronic (at least a few years) intermittent mild auditory hallucinations might be due to a psychosis aspect of her bipolar disorder. Lower suspicion for Lewy body disease. MRI brain is without any acute or concerning findings. It does show moderate-severe generalized atrophy and especially pronounced focal atrophy of bilateral anterior parietal lobes. MR angiography is unremarkable. PLAN: No other recommendations at this time 1. Sepsis (A41.9: Sepsis, unspecified organism) 2. Pneumonia (J18.9: Pneumonia, unspecified organism) 3. Acute hypoxic respiratory failure (J96.01: Acute respiratory failure with hypoxia) 4. Chronic heart failure with preserved ejection fraction (HFpEF) (I50.32: Chronic diastolic (congestive) heart failure) 5. Stroke-like symptoms (R29.90: Unspecified symptoms and signs involving the nervous system) 6. Aphasia (R47.01: Aphasia) 7. CKD stage 3b, GFR 30-44 ml/min (N18.32: Chronic kidney disease, stage 3b) 8. Bipolar affective (F31.9: Bipolar disorder, unspecified) 9. Morbid obesity with BMI of 40.0-44.9, adult (E66.01: Morbid (severe) obesity due to excess calories) 10. History of atrial fibrillation (Z86.79: Personal history of other diseases of the circulatory system) 11. Pacemaker (Z95.0: Presence of cardiac pacemaker) 12. Chronic GERD (K21.9: Gastro-esophageal reflux disease without esophagitis) Subjective No new complaints. She is at her baseline. Waiting to go back to the [place]. Review of Systems GEN: No fevers or chills. CV/PULM: No chest pain. No shortness of breath. No palpitations. NEURO: No headaches. No loss of vision. No double vision. No dysphagia. Reported speech changes. No focal weakness. No sensory loss [1] Objective Vitals & Measurements T: 36.8 ???C(Oral) TMIN: 36.6 ???C(Oral) TMAX: 36.9 ???C(Oral) HR: 66(Monitored) RR: 18 BP: 132/76 SpO2: 95% WT: 118.9 kg Intake & Output This visit (24 hour periods starting at 07:00 EDT) 01/14/25 * 01/13/25 01/12/25 Total Summary Intake mL 520.04 628.23 -- Output mL -- -- -- Fluid Balance 520.04 628.23 -- Intake (5) Sodium Chloride 0.9%, azithromycin mL 251.11 250 -- Sodium Chloride 0.9%, ceftriaxone mL -- 50 -- Sodium Chloride 0.9%, piperacillin-tazobactam mL 267.63 183.97 -- Sodium Chloride 0.9%, vancomycin mL -- 144.26 -- perflutren mL 1.3 -- -- Total 520.04 628.23 -- Output (0) Counts (2) Stool Count 3 -- -- Urine Count 1 -- -- * This column has not completed the indicated time period. Physical Exam GEN: General appearance normal. Well-kempt. No distress. Left leg with excoriated patch of skin. CARDIO/VASC: Bilateral distal lower extremities are dusky and erythematous. PULM: Normal work of breathing. SKIN: Venous stasis changes, the left leg wound. MS: Affect is flat, slightly guarded. She is alert. Attention mildly impaired. Oriented to Tereso Norton, January,. LANG: Speech is somewhat hypophonic, monotone. Seems fluent and nondysarthric. Sometimes pauses before responding. EYES: Pupils equal/reactive/consensual. Ocular motility full. No pathologic nystagmus. CN: Facial sensation normal. Hearing acuity normal. Face without droop and with normal motor function. MOTOR: Muscle bulk normal. Muscle tone mildly increased in upper extremities. Muscle strength normal. No resting tremors. Mild bradykinesia. REFLEXES: No pathologic reflexes. SENSORY: Light touch normal in bilateral upper extremities. CEREBELLAR: No limb ataxia. Lab Results WBC: 12.2 E9/L High (01/15/25 04:57:00) RBC: 3.4 E12/L Low (01/15/25 04:57:00) HGB: 11.7 gm/dL Low (01/15/25 04:57:00) Hct: 34.4 % (01/15/25 04:57:00) MCV: 100.7 fL High (01/15/25 04:57:00) MCH: 34.1 pg High (01/15/25 04:57:00) MCHC: 33.8 gm/dL (01/15/25 04:57:00) RDW: 14.1 % (01/15/25 04:57:00) Platelet: 195 E9/L (01/15/25 04:57:00) MPV: 7.8 fL (01/15/25 04:57:00) Neutro Auto: 76.7 % High (01/15/25 04:57:00) Lymph Auto: 7.1 % Low (01/15/25 04:57:00) Davis Auto: 8.5 % (01/15/25 04:57:00) Eos Auto: 7 % (01/15/25 04:57:00) Basophil Auto: 0.7 % (01/15/25 04:57:00) Neutro Absolute: 9.4 E9/L High (01/15/25 04:57:00) Lymph Absolute: 0.9 E9/L Low (01/15/25 04:57:00) Davis Absolute: 1 E9/L (01/15/25 04:57:00) Eos Absolute: 0.9 E9/L High (01/15/25 04:57:00) Basophil Absolute: 0.1 E9/L (01/15/25 04:57:00) Glucose Lvl: 94 mg/dL (01/15/25 04:57:00) BUN: 23 mg/dL High ( (more content not included)... [facility] Comment on above: Result Comment: Elec tronically Signed By: Dakota MENDOZA, Celia Buchanan\.br\Date and Time Signed: 01/15/25 06:56 EDT\.br\Electronically Co-Signed By: Kiel Pacheco DO\.br\Date and Time Co-Signed: 01/15/25 09:06 EDT 01-14-2025 Note Progress Note-Physic jessica Assessment/Plan The patient is a 74-year-old female the patient is a 74-year-old female with past medical history of morbid obesity (BMI greater than 40), CKD 3B (baseline creatinine 1.16 July 2024), lumbar spondylosis, history of GI bleeding, history of SIADH, bipolar disorder, A-fib, history of bilateral lower extremity venous stasis ulcers and lower extremity cellulitis, CAD, history of seizures, venous insufficiency, history of permanent pacemaker, GERD, sarcoidosis, HTN, vitamin D deficiency who was brought to [facility] on 01/13/2025 [facility]. Treated for recent pneumonia at [place] possibly aspiration. Also has chronic lower extremity wounds. Met sepsis criteria with source being either lower extremity wounds and/or pneumonia. 1. Sepsis (A41.9: Sepsis, unspecified organism) Patient exhibiting a dysregulated immune response due to infection SIRS: Elevated leukocyte count and tachypnea Source: Pneumonia/lower extremity cellulitis/left lower extremity wound (wound consult) Endorgan dysfunction: Mild lactic elevation at 2.1. Repeat check pending. Blood cultures drawn in ER Broad-spectrum antibiotics???Zosyn, azithromycin 8/5 -nasal MRSA negative. Discontinued vancomycin. Check sputum culture, check strep and Legionella urine antigens COVID, respiratory PCR, and MRSA screening all negative Ordered: Basic Metabolic Panel CBC w/ Auto Diff CBC w/ Auto Diff Comprehensive Metabolic Panel eGFR Sbsq Hospital Care/Day Moderate 35 Minutes [id number] 2. Pneumonia (J18.9: Pneumonia, unspecified organism) Treatment as above. Pulmonology consult as needed Recently treated for aspiration. Speech reconsulted and recommended continuing modified diet. 3. Acute hypoxic respiratory failure (J96.01: Acute respiratory failure with hypoxia) Likely secondary to pneumonia with possible HF component. On room air at baseline. Was discharged on oxygen from recent admission. Treatment as above On 4 L nasal cannula currently. Continue to wean as tolerated. Pulm consult if needed. 4. Chronic heart failure with preserved ejection fraction (HFpEF) (I50.32: Chronic diastolic (congestive) heart failure) Patient has mild BNP elevation and possible volume overload on chest x-ray. EF 55-60% cont GDMT: Losartan, Farxiga, carvedilol, Lasix 5. Stroke-like symptoms (R29.90: Unspecified symptoms and signs involving the nervous system) Unresponsive per EMS to facility, however, NIH was 0 on arrival. Patient was exhibiting some expressive aphasia difficulties intermittently though she was answering questions completely appropriately. Pt endorses auditory hallucinations recently starting. Denies acting out dreams and visual hallucinations. CT brain negative Neurology following. MRA head and neck and MRI brain pending. 6. Aphasia (R47.01: Aphasia) Resolved. See #5. 7. CKD stage 3b, GFR 30-44 ml/min (N18.32: Chronic kidney disease, stage 3b) Cr 1.6 on admit, 1.5 today. Baseline creatinine is 1.4. On record review. She recently had an ASHLEY on recent [place] admission and had downtrended to 1.6. Will treat as above and monitor. 8. Bipolar affective (F31.9: Bipolar disorder, unspecified) cont home Venlafaxine, olanzapine, lamotrigine 9. Morbid obesity with BMI of 40.0-44.9, adult (E66.01: Morbid (severe) obesity due to excess calories) BMI greater than 40. Recommend weight loss. Contributing to her comorbidities. 10. History of atrial fibrillation (Z86.79: Personal history of other diseases of the circulatory system) Continue Amio, carvedilol, Eliquis 11. Pacemaker (Z95.0: Presence of cardiac pacemaker) paced rhythm on ECG 12. Chronic GERD (K21.9: Gastro-esophageal reflux disease without esophagitis) PPI Orders: acetaminophen, 650 mg = 2 tab(s), Tab, Oral, q6hr PRN Pain, Routine, Start date 01/13/25 18:24:00 EDT, 01/13/25 18:24:00 EDT amiodarone, 400 mg = 2 tab(s), Tab, Oral, BID, Routine, Start date 01/14/25 21:00:00 EDT, 01/14/25 16:44:00 EDT apixaban, 5 mg = 1 tab(s), Tab, Oral, BID, Routine, Start date 01/14/25 21:00:00 EDT, 01/14/25 16:44:00 EDT azithromycin, 500 mg = 2 tab(s), Tab, Oral, Daily, Start date 01/15/25 9:00:00 EDT baclofen, 10 mg = 1 tab(s), Tab, Oral, Daily, Routine, Start date 01/15/25 9:00:00 EDT, 01/14/25 16:44:00 EDT benzonatate, 200 mg = 2 cap(s), Cap, Oral, TID, Routine, Start date 01/13/25 22:00:00 EDT, 01/13/25 21:15:00 EDT carvedilol, 25 mg = 1 tab(s), Tab, Oral, BID, Routine, Start date 01/14/25 21:00:00 EDT, 01/14/25 16:44:00 EDT diazepam, 5 mg = 1 tab(s), Tab, Oral, TID PRN Anxiety, Routine, Start date 01/14/25 16:44:00 EDT, 01/14/25 16:44:00 EDT donepezil, 10 mg = 2 tab(s), Tab, Oral, Once a day (at bedtime), Routine, Start date 01/14/25 21:00:00 EDT, 01/14/25 16:45:00 EDT empagliflozin, 10 mg = 1 tab(s), Tab, Oral, Daily, Routine, Start date 01/15/25 9:00:00 EDT, 01/14/25 16:45:00 EDT escitalopram, 10 mg (more content not included)... [facility] Comment on above: Result Comment: Elec tronically Signed By: Jarrod Mahajan III, DO\.br\Date and Time Signed: 01/14/25 16:48 EDT 01-14-2025 Note Echocardiology Procedure Exam Date/Time Accession # Ordering DrEmma Echo Transthoracic w/ 01/14/2025 11:49 EDT [id number] Jarrod Mahajan III, DO CPT code 36227 C8929 Reason for Exam (Echo Transthoracic w/ Contrast) Congestive Heart Failure Report [facility] [address] [place] [address] Adult Echocardiogram Report Name: LINDA NASCIMENTO Study Date: 01/14/2025 11:05 AM BP: 144/96 mmHg Patient Location: [address] [place] [address] 01 HR: 62 : 1950 Gender: Female Height: 65 in Age: 74 yrs Ethnicity: [facility] Weight: 287 lb Reason For Study: Congestive Heart Failure BSA: 2.3 m2 History: Pacemaker, AFIB, CAD, Sarcoidosis, CKD, Seizures, Retinal artery occlusion Ordering Physician: Jarrod Mahajan Performed By: Kami Ruiz RUST Interpretation Summary The left ventricle is normal in size. mild to moderate left ventricular hypertrophy. The left ventricular ejection fraction is normal. Ejection Fraction = 55-60%. There is Trace mitral regurgitation. Procedure A complete two-dimensional transthoracic echocardiogram was performed using contrast (2D, M-mode, spectral and color flow Doppler). Definity contrast was administered. Left Ventricle The left ventricle is normal in size. mild to moderate left ventricular hypertrophy. The left ventricular ejection fraction is normal. Ejection Fraction = 55-60%. No obvious regional wall motion abnormalities noted. Diastolic examination suggests elevated left ventricular end-diastolic pressure (LVEDP) and mean LA pressure (LAP). Left Atrium The left atrium is mildly dilated. Echocardiology Report Right Atrium Right atrium not well visualized. Right Ventricle The right ventricular systolic function is normal. The right ventricle is not well visualized. Aortic Valve The trileaflet aortic valve opening is normal. No aortic regurgitation. There is no aortic stenosis. Mitral Valve Mild thickening of the mitral valve leaflets. Mild mitral annular calcification. There is Trace mitral regurgitation. Tricuspid Valve There is mild tricuspid regurgitation. Estimated RVSP is 35.2 mmHg. Pulmonic Valve Not well seen. Arteries The aortic root is normal in size. Venous The inferior vena cava was not visualized during the exam. MMode/2D Measurements & Calculations RVDd: 3.6 cm LVIDd: 4.3 cm FS: 32.2 % Ao root diam: 3.1 cm IVSd: 1.3 cm LVIDs: 2.9 cm EDV(Teich): 80.9 ml Ao root area: 7.3 cm2 LVPWd: 1.4 cm ESV(Teich): 31.7 ml LA dimension: 4.8 cm EF(Teich): 60.8 % asc Aorta Diam: 3.3 cm LVOT diam: 2.3 cm LVLd ap4: 8.3 cm EDV(MOD-sp2): 114.0 ml LVOT area: 4.1 cm2 EDV(MOD-sp4): 106.0 ml ESV(MOD-sp2): 35.0 ml LVLs ap4: 7.3 cm EF(MOD-sp2): 69.3 % ESV(MOD-sp4): 37.8 ml EF(MOD-sp4): 64.3 % SV(MOD-sp4): 68.2 ml TAPSE: 2.0 cm Ao Sinus of Valsalva: 3.2 cm Ao Sinotubular Junction: 2.4 cm IVC Diam: 2.2 cm RVIDd/LVIDd: 0.84 EF (MOD-bp): 66.9 % LA Vol Index: 30.9 ml/m2 Doppler Measurements & Calculations MV E max kyle: 112.0 cm/sec MV dec time: 0.14 sec Ao V2 max: 122.6 cm/sec LV V1 max P.9 mmHg MV A max kyle: 30.1 cm/sec Ao max P.0 mmHg LV V1 max: 111.0 cm/sec MV E/A: 3.7 Lat Peak E' Kyle: 10.7 cm/sec GIANLUCA(V,D): 3.7 cm2 E/E' Lat: 10.5 Med Peak E' Kyle: 7.3 cm/sec E/E' Med: 15.4 Echocardiology Report TR max kyle: 283.7 cm/sec RAP systole: 3.0 mmHg AV VR: 0.90 TR max P.2 mmHg RVSP(TR): 35.2 mmHg ____ FINAL REPORT Dictated: 01/14/2025 11:05 am Quita Alvarado MD Signed (Electronic Signature): 01/14/2025 12:25 pm Signed by: Quita Alvarado MD Transcribed by: MARYSE Technologist: LENI [facility] 01-13-2025 Note History and Physical Basic Information Admit Date/Time:01/13/2025 15:12 Chief Complaint pna History of Present Illness The patient is a 74-year-old female the patient is a 74-year-old female with past medical history of morbid obesity (BMI greater than 40), CKD 3B (baseline creatinine 1.16 July 2024), lumbar spondylosis, history of GI bleeding, history of SIADH, bipolar disorder, A-fib, history of bilateral lower extremity venous stasis ulcers and lower extremity cellulitis, CAD, history of seizures, venous insufficiency, history of permanent pacemaker, GERD, sarcoidosis, HTN, vitamin D deficiency who was brought to [facility] Stroke alert was called in ER. On record review, patient recently treated for an aspiration pneumonia at [facility] and was seemingly still on outpatient oral antibiotics on discharge. In the ER here, she was tachycardic and tachypneic on presentation with an elevated leukocyte count. Met sepsis criteria. Blood cultures were drawn and she was given bacteremic dosing ceftriaxone and azithromycin in the ER. In light of recent hospitalization, will broaden out antibiotics as she would technically have MRSA and Pseudomonas risk factors. She is also hypoxic on 5 L nasal cannula. Patient reports that she is on a modified diet due to aspiration and had been being treated for aspiration pneumonia. She reports that her cough is significantly improved with antibiotics and use of Tessalon Perles. She has a flat affect, but is a good historian and able to tell me that [facility]. She is pleasant and conversational. She was able to tell me what brought her to the ER today and seems to remember everything that brought her to the ER into this and subsequent admission. She is somewhat slow to respond sometimes to questioning. No focal neurologic deficits on exam. Her [place], she did endorse auditory hallucinations and is unable to tell me exactly when this started, but thinks they started recently. Denies any visual hallucinations or acting out dreams. Past medical history: See above Past surgical history: Tonsillectomy, history of ex lap patient having Review of Systems Constitutional: no fever, no chills, no sweats, mild weakness Respiratory: no shortness of breath, no cough, no orthopnea, no wheezing Cardiovascular: no chest pain, no palpitations, moderate edema Additional ROS info: Except as noted in the above Review of Systems and in the History of Present Illness all other systems have been reviewed and are negative or noncontributory. Scoring Koehler Fall Risk Score: 60 High (01/13/25) Physical Exam Vitals & Measurements T: 36.7 ???C(Oral) TMIN: 36.7 ???C(Oral) TMAX: 36.8 ???C(Oral) HR: 75(Monitored) RR: 18 BP: 165/98 SpO2: 93% HT: 165 cm WT: 120 kg General: alert, no acute distress, pleasant and conversational, flat affect Skin: warm, dry Head: no trauma, normocephalic Neck: Trachea midline, no adenopathy, no tenderness Eye: normal conjunctiva, sclera clear ENMT: oral mucosa moist, normal oropharynx Cardiovascular: regular rate and rhythm, normal peripheral perfusion Respiratory: Lungs CTA, crackles RUL, respirations non labored Chest wall: no deformity. Gastrointestinal: soft, non distended, no tenderness, no guarding. Extremities: no deformity, no trauma, chronic stasis dermatitis, BL LE edema, L ant calf wound w cellulitic changes Neurological: oriented x 4, LOC appropriate for age, CN II-XII intact, motor strength equal & normal bilaterally, sensation equal & normal bilaterally, speech normal Psychiatric: cooperative, affect flat, normal judgement, hallucinogenic (auditory) psychiatric thoughts. Lab Results WBC: 13.7 E9/L High (01/13/25 13:19:00) RBC: 3.8 E12/L Low (01/13/25 13:19:00) HGB: 13.4 gm/dL (01/13/25 13:19:00) Hct: 38.6 % (01/13/25 13:19:00) MCV: 100.7 fL High (01/13/25 13:19:00) MCH: 34.9 pg High (01/13/25 13:19:00) MCHC: 34.6 gm/dL (01/13/25 13:19:00) RDW: 14.3 % High (01/13/25 13:19:00) Platelet: 233 E9/L (01/13/25 13:19:00) MPV: 7.2 fL (01/13/25 13:19:00) Neutro Auto: 91.7 % High (01/13/25 13:19:00) Lymph Auto: 5.2 % Low (01/13/25 13:19:00) Davis Auto: 2.2 % Low (01/13/25 13:19:00) Eos Auto: 0.4 % (01/13/25 13:19:00) Basophil Auto: 0.5 % (01/13/25 13:19:00) Neutro Absolute: 12.6 E9/L High (01/13/25 13:19:00) Lymph Absolute: 0.7 E9/L Low (01/13/25 13:19:00) Davis Absolute: 0.3 E9/L (01/13/25 13:19:00) Eos Absolute: 0.1 E9/L (01/13/25 13:19:00) Basophil Absolute: 0.1 E9/L (01/13/25 13:19:00) PT: 22.8 second(s) High (01/13/25 13:19:00) INR: 2.02 (01/13/25 13:19:00) PTT: 39.6 second(s) High (01/13/25 13:19:00) Glucose Lvl: 172 mg/dL (01/13/25 13:19:00) BUN: 26 mg/dL High (01/13/25 13:19:00) Creatinine: 1.6 mg/dL High (01/13/25 13:19:00) eGFR: 33 mL/min/1.73 m2 Low (01/13/25 13:19:00) BUN/Creat Ratio: 16 (01/13/25 13:19:00) Sodium Lvl: 139 mmol/L ( (more content not included)... [facility] Comment on above: Result Comment: Elec tronically Signed By: Jarrod Mahajan III, DO.sharan\Date and Time Signed: 01/13/25 21:14 EDT 01-13-2025 Note Progress Note - Monserrat vincent Indication: Empiric Treatment Goal Range:Trough: 10 - 20 RECOMMENDATIONS PLAN: Pharmacy consulted for vancomycin dosing for LINDA NASCIMENTO, a 74 Years, Female who is being treated with vancomycin for empiric 1. VANCO STATUS Vancomycin therapy is still active, today is day 1 of treatment. Patient in [place]SHLEY scr of 1., will dose by level, ordered vanco 1000 mg x1 dose will recheck level ~24 hr, scr per xdocs ~1.- 1.2 2. VANCO LEVEL _ 3. DOSING RECS _Dose by level 4. NEXT LEVELThe next level is scheduled for 1600 on . MRSA NASAL SWAB A MRSA Nasal swab is appropriate and has...will order We will follow patient renal function, vancomycin levels and doses with you during the course of therapy. Additional recommendations will appear in follow up notes. If you have any question please contact pharmacy. Age: 74 Years Allergies: Pollen; Dust Weight Last Documented Weight and Type of Scale Used Last Documented Weight Weight Measured: 120.5 kg (01/13/25 13:01:00) Type of Scale Used Weight Measured Type of Scale: Bed Scale (digital) (01/13/25 13:01:00) Height Last Documented Height/Length Last Documented Height/Length Height/Length Measured: 168 cm (01/13/25 13:01:00) CrCl: 39.66 mL/min Labs: WBC: 13.7 E9/L High (01/13/25 13:19:00) RBC: 3.8 E12/L Low (01/13/25 13:19:00) HGB: 13.4 gm/dL (01/13/25 13:19:00) Hct: 38.6 % (01/13/25 13:19:00) MCV: 100.7 fL High (01/13/25 13:19:00) MCH: 34.9 pg High (01/13/25 13:19:00) MCHC: 34.6 gm/dL (01/13/25 13:19:00) RDW: 14.3 % High (01/13/25 13:19:00) Platelet: 233 E9/L (01/13/25 13:19:00) MPV: 7.2 fL (01/13/25 13:19:00) Neutro Auto: 91.7 % High (01/13/25 13:19:00) Lymph Auto: 5.2 % Low (01/13/25 13:19:00) Davis Auto: 2.2 % Low (01/13/25 13:19:00) Eos Auto: 0.4 % (01/13/25 13:19:00) Basophil Auto: 0.5 % (01/13/25 13:19:00) Neutro Absolute: 12.6 E9/L High (01/13/25 13:19:00) Lymph Absolute: 0.7 E9/L Low (01/13/25 13:19:00) Davis Absolute: 0.3 E9/L (01/13/25 13:19:00) Eos Absolute: 0.1 E9/L (01/13/25 13:19:00) Basophil Absolute: 0.1 E9/L (01/13/25 13:19:00) PT: 22.8 second(s) High (01/13/25 13:19:00) INR: 2.02 (01/13/25 13:19:00) PTT: 39.6 second(s) High (01/13/25 13:19:00) Glucose Lvl: 172 mg/dL (01/13/25 13:19:00) BUN: 26 mg/dL High (01/13/25 13:19:00) Creatinine: 1.6 mg/dL High (01/13/25 13:19:00) eGFR: 33 mL/min/1.73 m2 Low (01/13/25 13:19:00) BUN/Creat Ratio: 16 (01/13/25 13:19:00) Sodium Lvl: 139 mmol/L (01/13/25 13:19:00) Potassium Lvl: 3.8 mmol/L (01/13/25 13:19:00) Chloride: 99 mmol/L Low (01/13/25 13:19:00) CO2: 29 mmol/L (01/13/25 13:19:00) AGAP: 15 mEq/L (01/13/25 13:19:00) Calcium Lvl: 9.9 mg/dL (01/13/25 13:19:00) Alk Phos: 86 Int._Unit/L (01/13/25 13:19:00) ALT: 10 Int._Unit/L (01/13/25 13:19:00) AST: 22 Int._Unit/L (01/13/25 13:19:00) Total Protein: 8 gm/dL High (01/13/25 13:19:00) Albumin Lvl: 4.5 gm/dL (01/13/25 13:19:00) Globulin: 3.5 gm/dL (01/13/25 13:19:00) A/G Ratio: 1.3 (01/13/25 13:19:00) Bili Total: 0.7 mg/dL (01/13/25 13:19:00) Bili Direct: 0.1 mg/dL (01/13/25 13:19:00) Bili Indirect: 0.6 mg/dL (01/13/25 13:19:00) Lactic Acid Lvl: 2.1 mmol/L (01/13/25 14:59:00) Magnesium: 1.9 mg/dL (01/13/25 13:19:00) Troponin HS: 17.5 pg/mL (01/13/25 15:10:00) BNP: 370 pg/mL High (01/13/25 13:19:00) Procalcitonin: <.05 (01/13/25 13:19:00) UA Spec Desc: Clean Catch (01/13/25 14:18:00) UA Color: Colorless Abnormal (01/13/25 14:18:00) UA Clarity: Clear (01/13/25 14:18:00) UA Spec Grav: 1.006 (01/13/25 14:18:00) UA pH: 6.5 (01/13/25 14:18:00) UA Protein: Negat (01/13/25 14:18:00) UA Glucose: 3+ Abnormal (01/13/25 14:18:00) UA Ketones: Negat (01/13/25 14:18:00) UA Bili: Negat (01/13/25 14:18:00) UA Blood: Negat (01/13/25 14:18:00) UA Nitrite: Negat (01/13/25 14:18:00) UA Urobilinogen: Negat (01/13/25 14:18:00) UA Leuk Est: Negat (01/13/25 14:18:00) [facility] 12-31-2024 Note [place] Elect[place] Consult [place] Cardiology [facility] Reason for visit: Afib 12/31/24 Patient is here today for a device check and a follow up appointment. Patient states her chest hurts due to fluid in her chest, patient [facility] told her she doesn't have pneumonia. Patient [...] from an [facility] to [facility] following a fall that she sustained. She was noted to be bradycardic and EKG at that time showed her to have bradycardia in the rate of 30s following admission to [facility] she was noted to have a [...] ANGIOGRAM W AND/OR WO IV CONTRAST 04/23/[address] [facility] [address] IMAGING CTA CHEST W IV CONTRAST 04/23/2022 CT CHEST ANGIOGRAM W AND/OR WO IV CONTRAST 04/23/[address] [facility] [address] IMAGING TONSILLECTO (more content not included)... [facility] 05-21-2024 [place] Elect[place] Consult [place] [facility] Reason for visit: 05/21/24 Pt has [...] from an [facility] to [facility] following a fall that she sustained. She was noted to be bradycardic and EKG at that time showed her to have bradycardia in the rate of 30s following admission to [facility] she was noted to have a [...] ANGIOGRAM W AND/OR WO IV CONTRAST 04/23/[address] [facility] [address] CHEST ANGIOGRAM W AND/OR WO IV CONTRAST 04/23/2022 CT CHEST ANGIOGRAM W AND/OR WO IV CONTRAST 04/23/[address] [facility] [address] IMAGING TONSILLECTOMY SH: Social Determinants [...] Partner Violence: Unkn (more content not included)... [facility] 03-30-2022 Evaluation note Encounter Date Diagnosis Assessment Notes Mar, Other spondylosis with radiculopathy, lumbar region (ICD-10 - M47.26) [employer] Other 10-13-2022 Evaluation note* Encounter Date Diagnosis [...] note writ ten by Summer Molina LPN, Pharmacy Associate. Edited and approved by Dr. Rancho Chamorro MD. [employer] Other 10-05-2022 Evaluation note* Encounter Date Diagnosis Assessment Notes Treatment Notes Treatment Clinical Notes Mar, Other low back pain (ICD-10 - M54.59) [employer] Other 07-14-2022 Evaluation note* Encounter Date Diagnosis [...] note writ ten by Mika Villalobos MA, Pharmacy Associate. Edited and approved by Dr. Rancho Chamorro MD. [employer] Other 06-08-2022 Evaluation note* Encounter Date Diagnosis [...] note writ ten by Mika Villalobos MA, Pharmacy Associate. Edited and approved by Dr. Rancho Chamorro MD. [employer] Other 06-08-2022 Evaluation note* Encounter Date Diagnosis [...] four weeks, case discussed with Dr[facility]. [employer] Other 05-25-2022 Evaluation note* Encounter Date Diagnosis [...] for Keflex BID x 14 days and [place]. Patient and sister instructed to contact office with any signs of infection or significant changes [employer] Other 05-19-2022 Evaluation note* Encounter Date Diagnosis [...] note writ ten by Summer Molina LPN, Pharmacy Associate. Edited and approved by Dr. Rancho Chamorro MD. [employer] Other 04-28-2022 Evaluation note* Encounter Date Diagnosis Assessment Notes Treatment Notes Treatment Clinical Notes Sep, Pacemaker (ICD-10 - Z95.0) [employer] Other 04-27-2022 Evaluation note* Encounter Date Diagnosis [...] spinal osteoarthritis complication status (ICD-10 - M47.816) [employer] Other 03-30-2022 Evaluation note* Encounter Date Diagnosis [...] D. To call with questions or concerns. [employer] Other 11-18-2021 NoteMR#: [id number] I [facility] Pt. Name: Linda Nascimento Admitted: 04/21/2021 Discharged: [...] The patient was subsequently transferred to the [facility] for higher level of care. Cardiology [...] Lozada MD Date Trans: 04/29/2021 12:17 P/roni [id number] cc: Leslie Arroyo M.D. [address] [place] [address]. [employer] [address] [place] [address] M[address] [place] [id number]edoEvaluation noteNo InformationNort Flayr Other Evaluation noteNo assessment information available [facility] Work Phone: History general Narrative - Reported* Type Description Date Medical History bipolar Medical History Arthritis Medical History high blood pressure Medical History chronic depression Medical History iron deficiency anemia Medical History kidney disease Medical History hyperlipidemia Medical History anxiety Medical History vitamin D deficiency Surgical History tonsillectomy Surgical History laparoscopy Hospitalization History depression [employer] Other Summary Purpose Family History No Family [...] and content) DATE CREATED AUTHOR 05/30/2021 [facility] DATE CREATED AUTHOR AUTHOR'S ORGANIZ ATION 04/05/2022 [facility] DATE CREATED AUTHOR AUTHOR'S ORGANIZ ATION 10/19/[address] [facility] DATE CREATED AUTHOR AUTHOR'S ORGANIZ ATION 03/27/2023 [facility] DATE CREATED AUTHOR AUTHOR'S ORGANIZ ATION 05/10/2024 [facility] DATE CREATED AUTHOR AUTHOR'S ORGANIZ ATION 08/09/2024 [facility] DATE CREATED AUTHOR AUTHOR'S ORGANIZ ATION 01/15/2025 [facility] DATE CREATED AUTHOR AUTHOR'S ORGANIZ ATION 01/16/2025 [facility] DATE CREATED AUTHOR AUTHOR'S ORGANIZ ATION 01/17/2025 [facility] DATE CREATED AUTHOR AUTHOR'S ORGANIZ ATION 01/18/2025 [facility] DATE CREATED AUTHOR AUTHOR'S ORGANIZ ATION 01/19/2025 [facility] DATE CREATED AUTHOR AUTHOR'S ORGANIZ ATION 01/21/2025 [facility] REASON FOR VISIT (unrecogniz ed section and content) DIRE PAIN IN RT LEG HIP AREA Check right Hip and legNo InformationFOLLOW UP AFTER TRANSFORAMINALRIGHT TRANSFORAMINAL EPIDURAL L4/CJMRI RESULTS PER Jluis BaileyLeft Knee Pain2 WK RECHECK1 MONTH RECHECKNo Information4 [...] BE BASED ON THE PRIMARY CLINICAL RECORDS. [facility] [employer] [facility]. provides no warranty or guarantee of the accuracy or completeness of information in this document.
== END 2025-02-04 11:14 | disposition home or self-care (01) ==
LOC: WC 11:13
PROVIDERS: PCP Family Medicine; Visit Provider Physician Assistant
DX: I87.313 Chronic venous hypertension (idiopathic) with ulcer of bilateral lower extremity (principal); L97.822 Non-pressure chronic ulcer of other part of left lower leg with fat layer exposed; L97.812 Non-pressure chronic ulcer of other part of right lower leg with fat layer exposed
CPT/HCPCS: G0463

== ENCOUNTER 2025-02-08 21:16 | Inpatient (IN) | payer MEDICARE, OTHER, MEDICAID, SELFPAY ==
[2025-02-08] VITALS (8 sets, daily range): BP systolic 92–127; BP diastolic 64–81; PULSE 69; TEMP 36.6; O2SAT 88–99; BMI 42.3
--- OUTSIDE RECORDS SUMMARY | 2025-02-08 21:26 | XMS_ITS | CCD ---
Author Organization [facility] CliniSyma Care Team Providers Care Nursing Assistants Teacher Name Role Phone ROBERTA VELA Admitting Unavailable ALEXANDRA, LESLIE Referring Unavailable BILLY LOZADA Attending Unavailable [...] BULLOCK Consulting Unavailable MARE JAIMES Consulting Unavailable PAOLOANDER, PETER D Admitting Unavailable PAOLOANDER, PETER D Attending Unavailable HOY ., DR DORADO Primary Care Unavailable HOY ., DR DORADO Primary Care Unavailable SHERIE OLMOS Attending Unavailable SHERIE OLMOS Admitting Unavailable JANINE ., DR DORADO Primary Care Unavailable REBECCA, DR MARINO Braswell Consulting Unavailable HORosmery ., DR DORADO Primary Care Unavailable ISSA .MIRNA Attending Unavailable ISSA ., MIRNA Admitting Unavailable ISSA ., MIRNA Consulting Unavailable FAWN MARINELLI Consulting Unavaila suzanna DIAS PETER Mallory Admitting Unavailable HIGHLANDER, PETER D Attending Unavailable HOY ., DR DORADO Primary Care Unavailable PAOLOANDER, PETER D Admitting Unavailable HIGHLANDER, PETER D Attending Unavailable HOY ., DR DORADO Primary Care Unavailable PAOLOANDER, PETER D Attending Unavailable HOY ., DR DORADO Primary Care Unavailable PAOLOANDER, PETER D Admitting Unavailable HIGHLANDER, PETER D Attending Unavailable HOY ., DR DORADO Primary Care Unavailable PAOLOANDER, PETER D Admitting Unavailable HIGHLANDER, PETER [...] HOY ., DR DORADO Primary Care Unavailable LEONIE COYLE Attending Unavailable LEONIDES, LEONIE Admitting Unavailable REBECCA, DR MARINO Braswell Consulting Unavailable HOY ., DR DORADO Primary Care Unavailable PAY ., DR DING Consulting Unavailable LEONIE COYLE Consulting Unavailable LEÓN LLAMAS Consulting Unavailable PAY ., DR DING Attending Unavailable PAY ., DR DING Consulting Unavailable HOY ., DR DORADO Primary Care Unavailable PAY ., DR DING Admberenice Unavailable DUNN ., MR BETI Consulting Unavailable POLICMADINA SHERWOOD Consulting Unavailable NGUYEN GONZALES Consulting Unavailable HIGHLANDER, PETER D Admitting Unavailable HIGHLANDER, PETER D Attending Unavailable HOY ., DR DORADO Primary Care Unavailable HOY ., DR DORADO Primary Care Unavailable TAMLYN .JAMES Attending Unavailable TAMLYN ., JAMES Admitting Unavailable HOY ., DR DORADO Primary Care Unavailable SHERIE OLMOS Attending Unavailable AMARILISSHERIE AGUIRRE Admitting Unavailable HOY ., DR DORADO Primary [...] ., DR DORADO Primary Care Unavailable ISSA Carter, MIRNA Admitting Unavailable DAVID STOKES Consulting Unavailable SHERRY CONDON Consulting Unavailable HOY ., DR DORADO Admitting Unavailable HORosmery ., DR DORADO Consulting Unavailable JANINE ., DR DORADO Attending Unavailable MARGO, DR BORIS Hardwick Procedure Practitioner Yun vamirta MEHTA ., DR DORADO Primary Care Unavailable CICI ., DR IVAN Bowden Consulting Unavailable MARGO, DR BORIS Hardwick Consulting UnavailKIAN Ricci Consulting Unavailable RISHABH ART Consulting Unavailable LEÓN PETERS Unavailable JANINE ., DR DORADO Primary Care Unavailable JANINE ., DR DORADO Admitting Unavailable ROSETTA, DR REYMUNDO Braswell Consulting Unavailable HOY ., DR DORADO Attending Unavailable HORosmery ., DR DORADO Consulting Unavailable SHAIKH Roberto NICOLAS Consulting Unavailable LEÓN DIAS Consulting Unavailable LEÓN DIAS Attending Unavailable LEÓN DIAS Admitting Unavailable JANINE ., DR DORADO Primary Care Unavailable JANINE ., DR DORADO Primary Care Unavailable KRISTIAN MERAZ Attending Unavailable KT MOHAMAD Admitting Unavailable MARKEL AMBROCIO Consulting Unavailable LEÓN DIAS Admitting Unavailable LEÓN DIAS Attending Unavailable JANINE ., DR DORADO Primary Care Unavailable OHIOWA, DR RISHABH Martin Consulting Unavailable LEÓN DIAS [...] Mahajan Attending Unavailable Jarrod Mahajan Admitting Unavailable Woodstock, Marino Consulting Unavailable Woodstock, Marino Consulting Unavailable Woodstock, Marino Consulting Unavailable Woodstock, Marino Consulting Unavailable Woodstock, Marino Consulting Unavailable Woodstock, Marino Consulting Unavailable Woodstock, Marino Consulting Unavailable Marino Roe Consulting Unavailable Woodstock, Marino Consulting Unavailable [facility] Wound, XXXX Consulting Unavailable [facility] Wound, XXXX Consulting Unavailable Jarrod Mahajan Admitting Unavailable Jarrod Mahajan Attending Unavailable ENOCH FRANKEL Referring Unavailable ENOCH FRANKEL Attending Unavailable ENOCH FRANKEL Referring Unavailable ENOCH FRANKEL Attending Unavailable ENOCH FRANKEL Referring Unavailable ENOCH FRANKEL Referring Unavailable ENOCH FRANKEL Referring Unavailable Ave Mehta MD Primary Care Provider [phone] Kristen White DO Attending Provider Allergies Allergy Classification Reported Allergen(s) Allergy Type Date of Onset Reaction(s) Facility (6 sources) Dust; Translations: [Dust] Propensity to adverse reactions (disorder) [facility] Repository (6 sources) Pollen; Translations: [Pollen] Propensity to adverse reactions (disorder) [facility] Repository (1 source) Cephalexin; Translations: [CEPHALEXIN] Drug Allergy 4 [facility] Repository (1 source) house dust allergenic extract; Translations: [HOUSE DUST] Drug Allergy 4 [facility] Repository (1 source) Pollen; Translations: [POLLEN EXTRACTS] Propensity to adverse reactions to drug (disorder) 4 [facility] Repository Medications Current Medications Medication Drug Class(es) Dates Sig (Normalized) Sig (Original) acetaminophen 500 mg oral tablet (13 sources) take 2 tablets by mouth every eight hours as needed [facility] Acetaminophen [facility] 500 MG TAKE 2 TABLETS BY MOUTH EVERY 8 HOURS NEEDED for 30 Active acetaminophen 325 mg / HYDROcodone bitartrate 10 mg oral tablet (13 sources) Opioid Agonist Start: 11-04-2021 End: 11-09-2021 take 1 tablet by mouth every eight hours as needed for pain Start: 11-03-2021 take 1 tablet by brynn th every eight hours HYDROcodone-Acetaminophen 5-325 MG 1 tab let as needed Orally every 8 hrs for 7 days October, Active alendronic acid 70 mg oral tablet (2 sources) Bisphosphonate Start: 06-03-2020 aspirin 81 mg chewable tablet (15 sources) Platelet Aggregation Inhibitor, Nonsteroidal Anti-inflammatory Drug Start: 06-03-2020 take 1 tablet by mouth once daily take 1 tablet by mouth once dayton y Aspirin 81 81 MG 1 tablet Orally Once a day Active baclofen 10 mg oral tablet (8 sources) gamma-Aminobutyric Acid-ergic Agonist Start: 11-04-2021 take 1 tablet by mouth once daily take 1 tablet by mouth every twe lve hours Baclofen 10 MG 1 tablet as needed Orally Twice a day Active buPROPion hydrochloride 100 mg oral tablet (15 sources) Aminoketone Start: 06-04-2020 take 1 tablet by brynn th twice daily busPIRone hydrochloride 15 m g oral tablet (15 sources) Start: 06-03-2020 take 1 tablet by brynn th three times daily take 1 tablet by brynn th every twelve hours busPIRone HCl 15 MG 1 tablet Orally Twic e a day Active Calcium-Vitamin D 500-400 MG-UNIT (13 sources) Start: 07-20-2020 take 1 tablet by mouth once daily Calcium-Vitamin D 500-400 MG-UNIT 1 tablet with a meal Orally Once a day for 30 day(s) Jul, Active carvedilol 25 mg oral tablet (17 sources) alpha-Adrenerg ic Marah, beta-Adrenergi c Marah Start: 11-08-2021 take 1 tablet by mouth twice daily Start: 11-04-2021 End: 11-08-2021 take 1 tablet by mouth three times daily Carvedilol 25 mg Tablet Discontinued 25 MG PO Three times daily November 04, 2021 12:00am November 08, 2021 1:07pm cephalexin 500 mg oral capsule (9 sources) Cephalosporin Antibacterial Start: 11-03-2021 take 1 capsule by mouth twice daily Cephalexin 500 MG 1 capsule Orally twice daily for 14 days October, Active cholecalciferol 0.125 mg oral tablet (2 sources) Vitamin D Start: 06-03-2020 take 1 tablet by mouth once daily clonazePAM 0.5 mg oral tablet (20 sources) Benzodiazepine Start: 11-04-2021 End: 11-09-2021 take 1 tablet by mouth three times daily Start: 06-08-2020 End: 11-04-2021 take 1 tablet by mouth twice daily Clonazepam (Klonopin) 0.5 mg tablet Discontinued 0.5 MG PO Twice daily 11 12June 08, 2020 1:26pm November 04, 2021 12:18pm Start: 06-03-2020 End: 06-08-2020 take 1 tablet by mouth three times daily Clonazepam (Klonopin) 0.5 mg tablet Discontinued 0.5 MG PO Three times daily June 03, 2020 1:00am June 08, 2020 1:27pm take 1 tablet by brynn th every twenty-four hours clonazePAM 0.5 MG 1 tablet at bedtime Orally Once a day Active diclofenac sodium 75 mg delayed release oral tablet (15 sources) Nonsteroidal Anti-inflammatory Drug Start: 06-03-2020 take 1 tablet by mouth twice daily ferrous sulfate 325 mg oral tablet (17 sources) Start: 11-08-2021 Start: 06-03-2020 End: 11-08-2021 take 1 tablet by mouth twice daily Ferrous Sulfate 325 mg (65 mg iron) Tablet Discontinued 325 MG PO Twice daily June 03, 2020 1:00am November 08, 2021 1:07pm QOD take 1 tablet by brynn th every twenty-four hours Iron 325 (65 Fe) MG 1 tablet Orally Once a day Active FLUoxetine 20 mg oral capsule (4 sources) Serotonin Reuptake Inhibitor Start: 11-04-2021 take 3 capsules by mouth once daily Start: 06-03-2020 End: 11-04-2021 take 1 capsule by mouth once daily Fluoxetine 40 mg capsule Discontinued 40 MG PO Daily June 03, 2020 1:00am November 04, 2021 12:18pm furosemide 40 mg oral tablet (4 sources) Loop Diuretic Start: 11-04-2021 take 1 tablet by brynn th once daily Start: 06-03-2020 End: 11-04-2021 Furosemide 20 mg tablet Disc ontinued 20 MG PO Use as Directed June 03, 2020 1:00am November 04, 2021 12:18pm gabapentin 300 mg oral capsule (12 sources) Anti-epileptic Agent Start: 10-28-2021 take 1 tablet by mouth twice daily Start: 10-28-2021 take 2 capsules by m out every twelve hours Gabapentin 300 MG 2 capsule Orally BID for 30 day(s) October, Active hydrALAZINE hydrochloride 50 mg oral tablet (15 sources) Arteriolar Vasodilator Start: 11-04-2021 take 1 tablet by mouth three times daily take 1 tablet by brynn th every eight hours hydrALAZINE HCl 25 MG 1 tablet with food Orally Three times a day Active lamoTRIgine 100 mg oral tablet (2 sources) Mood Stabilizer, Anti-epileptic Agent Start: 06-03-2020 take 2 tablets by mouth once daily at bedtime losartan potassium 100 mg oral tablet (2 sources) Angiotensin 2 Receptor Marah Start: 11-04-2021 take 1 tablet by mouth once daily OLANZapine 10 mg oral tablet (2 sources) Atypical Antipsychotic Start: 06-03-2020 take 1 tablet by mouth at bedtime omeprazole 20 mg delayed release oral capsule (2 sources) Proton Pump Inhibitor Start: 11-04-2021 take 2 capsules by mouth twice daily microencapsulated potassium chloride 10 meq extended release oral tablet (2 sources) Start: 11-04-2021 take 1 tablet by mouth twice daily pravastatin sodium 20 mg oral tablet (2 sources) HMG-CoA Reductase Inhibitor Start: 06-03-2020 take 1 tablet by mouth once daily tamsulosin hydrochloride 0.4 mg oral capsule (2 sources) alpha-Adrenergic Marah Start: 11-04-2021 take 1 capsule by mouth once daily tiZANidine 4 mg oral tablet (15 sources) Central alpha-2 Adrenergic Agonist Start: 06-03-2020 take 2 tablets by mouth at bedtime take 1 tablet by mouth every eig [...] Sig (Original) amLODIPine 10 mg oral tablet (15 sources) Dihydropyridine Calcium Channel Marah Start: 06-03-2020 End: 11-04-2021 take 1 tablet by mouth once daily Amlodipine (Norvasc) 10 mg tablet Discontinued 10 MG PO Daily June 03, 2020 1:00November 04, 2021 12:18pm take 1 tablet by brynn th every twenty-four hours amLODIPine Besylate 5 MG 1 tablet Orally Once a day Active irbesartan 300 mg oral tablet (2 sources) Angiotensin 2 Receptor Marah Start: 06-03-2020 End: 11-04-2021 take 1 tablet by mouth once daily Irbesartan 300 mg tablet Discontinued 300 MG PO Daily June 03, 2020 1:00November 04, 2021 12:18pm ketorolac tromethamine 4 mg/ml ophthalmic solution (2 sources) Nonsteroidal Anti-inflammatory Drug, Cyclooxygenase Inhibitor Start: 06-03-2020 End: 11-04-2021 take 1 drop(s) into the eye(s) four times daily Ketorolac 0.4 % Drops Discontinued 1 DROPS EYE-BOTH Four times daily June 03, 2020 1:00am November 04, 2021 12:18pm Start: 06-03-2020 End: 11-04-2021 take 1 drop(s) into the eye(s) four times daily Ketorolac 0.4 % Drops Discontinued 1 DROPS EYE-BOTH Four times daily June 03, 2020 12:00November 04, 2021 11:18am loperamide hydrochloride 2 mg / simethicone 125 mg oral tablet (2 sources) Opioid Agonist Start: 06-03-2020 End: 11-04-2021 take 1 tablet by mouth every four hours as needed for diarrhea Loperamide-Simethicone 2-125 mg Tablet Discontinued 1 TAB PO Every 4 hours as needed for Diarrhea June 03, 2020 1:00November 04, 2021 12:18pm Start: 06-03-2020 End: 11-04-2021 take 1 tablet by mouth every four hours as needed for diarrhea Loperamide-Simethicone 2-125 mg Tablet Discontinued 1 TAB PO Every 4 hours as needed for Diarrhea June 03, 2020 12:00November 04, 2021 11:18am oxyCODONE hydrochloride 5 mg oral tablet (2 sources) Opioid Agonist Start: 06-08-2020 End: 11-04-2021 take 1 tablet by mouth every six hours as needed for pain Oxycodone 5 mg Tablet Discontinued 5 MG PO Every 6 hours as needed for Moderate Pain 5 3 June 08, 2020 November 04, 2021 12:18pm prednisoLONE 10 mg/ml ophthalmic solution (2 sources) Corticosteroid Start: 06-03-2020 End: 11-04-2021 take 1 drop(s) into the eye(s) four times daily Prednisolone Sodium Phosphate 1 % Drops Discontinued 1 DROPS EYE-BOTH Four times daily June 03, 2020 1:00am November 04, 2021 12:18pm Start: 06-03-2020 End: 11-04-2021 take 1 drop(s) into the eye(s) four times daily Prednisolone Sodium Phosphate 1 % Drops Discontinued 1 DROPS EYE-BOTH Four times daily June 03, 2020 12:00am November 04, 2021 11:18am Pt Unable To Verify Home Med s (2 sources) Start: 06-03-2020 End: 06-08-2020 Pt Unable To Verify Home Med s Discontinued June 03, 2020 1:00am June 08, 2020 1:27pm Start: 06-03-2020 End: 06-08-2020 Pt Unable To Verify Home Med s Discontinued June 03, 2020 12:00am June 08, 2020 12:27pm spironolactone 50 mg oral tablet (15 sources) Aldosterone Antagonist Start: 06-03-2020 End: 11-04-2021 Spironolactone 50 mg tablet Discontinued 50 MG PO As Directed June 03, 2020 1:00am November 04, 2021 12:18pm triamcinolone acetonide 40 mg/ml injectable suspension (13 [...] fibrillation] Onset: 12-20-2021 Chronic Chronic kidney disease (4 sources) Chronic kidney disease, unspecified; Translations: [Chronic [...] Chronic Deficiency and other anemia (2 sources) Anemia of chronic disease; Translations: [Anemia in other chronic diseases classified elsewhere] 06-08-2020 Chronic Deficiency and other anemia (1 source) Anemia, unspecified; Translations: [ANEMIA UNSPECIFIED] Onset: 10-18-2022 Episodic Deficiency and other anemia (2 sources) Anemia; Translations: [Anemia, unspecified] 11-04-2021 Episodic Diseases of white blood cells (2 sources) Leukocytosis; Translations: [Elevated white blood cell count, unspecified] 06-08-2020 Chronic Disorders of lipid metabolism (4 sources) Hyperlipidemia, unspecified; Translations: [HYPERLIPIDEMIA UNSPECIFIED] Onset: 02-11-2022 Chronic E Codes: Fall (5 sources) Unspecified fall, initial encounter; Translations: [Fall from chair, initial encounter] Onset: 12-01-2021 11-04-2021 Episodic Esophageal disorders (1 source) Gastro-esophageal reflux disease without esophagitis; Translations: [GERD WITHOUT ESOPHAGITIS] Onset: 08-18-2022 Chronic Essential hypertension (3 sources) Essential (primary) hypertension; Translations: [Hypertensive disorder] Onset: 08-18-2022 11-09-2021 Chronic Fluid and electrolyte disorders (7 sources) Hypo-osmolality and hyponatremia; Translations: [Hyperkalemia] Onset: [...] region] Episodic Other aftercare (1 source) Other penitentiary (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; Translations: [OTH SUPERVISOR MOLDING CURRENT DRUG THERAPY] Onset: 10-18-2022 Episodic Other connective tissue disease (13 sources) Trochanteric bursitis of left hip; Translations: [Trochanteric bursitis, left hip] Episodic Other connective tissue disease (4 sources) Pain in left leg; Translations: [PAIN IN LEFT LEG] Onset: 10-14-2022 Episodic Other connective tissue disease (1 source) Muscle weakness (generalized); Translations: [MUSCLE WEAKNESS GENERALIZED] Onset: 08-18-2022 Episodic Other connective tissue disease (1 source) Neurological symptom; Translations: [Unspecified symptoms and signs involving the nervous system] 02-05-2025 Episodic Other diseases of veins and lymphatics (5 sources) Venous insufficiency (chronic) (peripheral); Translations: [VENOUS INSUFF CHRONIC PERIPHERAL] Onset: 06-09-2022 Episodic Other diseases of veins and lymphatics (2 sources) Disorder of vein of lower extremity; Translations: [Venous insufficiency (chronic) (peripheral)] 06-08-2020 Episodic Other fractures (13 sources) Fracture of pubis; Translations: [Unspecified fracture of left pubis, subsequent encounter for fracture with delayed healing] Episodic Other fractures (2 sources) Closed fracture of pelvis; Translations: [Fracture of [...] UNCOMP] Onset: 05-11-2022 Chronic Superficial injury; contusion (19 sources) Contusion of left knee, initial encounter; [...] Resolved: 2 Episodic Other aftercare (1 source) long-term (current) use of antibiotics; Translations: [SUPERVISOR MOLDING CURRENT USE ANTIBIOTICS] Onset: 2 Episodic Other aftercare (1 source) long-term (current) use of aspirin; Translations: [SUPERVISOR MOLDING CURRENT USE OF ASPIRIN] Onset: 2 Episodic Other aftercare (1 source) manager terminal (current) use of insulin; Translations: [HALF-WAY CURRENT USE OF INSULIN] Onset: 2 Episodic [...] Fld Cult Not indicated. Invalid Interpretation Code [facility] Comment on above: Performed By: #### [id number] #### [facility] [address] [place] [address] Note Bact Ag Cult Comment Invalid Interpretation Code [facility] Comment on above: Result Comment: Manjinder ege of [employer] standards require a culture to be performed on CSF specimens submitted for bacterial antigen testing. (CAP [id number]) Urine specimens will not be cultured. Performed at: [address] [id number] MD Dayron Pepper Performed By: #### 4 [id number] #### [facility] [address] [id number] Org ID S pneumo Not indicated. Invalid Interpretation Code [facility] Comment on above: Performed By: #### 4 [id number] #### [facility] [address] [place] [address] Spec Source S pneumo Urine Invalid Interpretation Code [facility] Comment on above: Performed By: #### 4 [id number] #### [facility] [address] [place] [address] Strep pneumo Ag Negative Invalid Interpretation Code Negative [facility] Comment on above: Performed By: #### 4 [id number] #### [facility] [address] [place] [address] U Legi Agon 01-16-2025 U Legion Ag Negative Invalid Interpretation Code Negative [facility] Comment on above: Result Comment: Pres umptive negative for L. pneumophila serogroup 1 antigen in urine, suggesting no recent or current infection. Legionnaires' disease cannot be ruled out since other serogroups and species may also cause disease. Performed at: [address] [id number] MD Dayron Pepper Performed By: #### 2 [id number] #### [facility] [address] [place] [address] BMPon 01-15-2025 Anion gap [Moles/Vol] 13 mmol/L Normal 6-16 [facility] Comment on above: Performed By: #### 2 [id number] #### [facility] [address] [place] [address] BUN/Creat Ratio 15 No Units Normal 10-20 [facility] Comment on above: Performed By: #### 2 [id number] #### [facility] [address] [place] [address] Calcium [Mass/Vol] 8.9 mg/dL Normal 8.9-11.1 [facility] Comment on above: Performed By: #### 2 [id number] #### [facility] [address] [place] [address] Chloride [Moles/Vol] 102 mmol/L Normal 101-111 [facility] Comment on above: Performed By: #### 2 [id number] #### [facility] [address] [place] [address] CO2 [Moles/Vol] 29 mmol/L Normal 21-31 [facility] Comment on above: Performed By: #### 2 [id number] #### [facility] [address] [place] [address] Creatinine [Mass/Vol] 1.5 mg/dL High 0.5-1.3 [facility] Comment on above: Performed By: #### 2 [id number] #### [facility] [address] [place] [address] Glucose [Mass/Vol] 94 mg/dL Normal 55-199 [facility] Comment on above: Performed By: #### 2 [id number] #### [facility] [address] [place] [address] Potassium [Moles/Vol] 3.7 mmol/L Normal 3.5-5.3 [facility] Comment on above: Performed By: #### 2 [id number] #### [facility] [address] [place] [address] Sodium [Moles/Vol] 140 mmol/L Normal 135-145 [facility] Comment on above: Performed By: #### 2 [id number] #### [facility] [address] [place] [address] Urea nitrogen [Mass/Vol] 23 mg/dL High 5-21 [facility] Comment on above: Performed By: #### 2 [id number] #### [facility] [address] [place] [address] CBC w/ Auto Diffon 5 Basophil Absolute 0.1 E9/L Normal 0.0-0.2 [facility] Comment on above: Performed By: #### 2 [id number] #### [facility] [address] [place] [address] Basophils/100 WBC (Bld) 0.7 % Normal 0.0-2.0 [facility] Comment on above: Performed By: #### 2 [id number] #### [facility] [address] [place] [address] Eos Absolute 0.9 E9/L High 0.0-0.5 [facility] Comment on above: Performed By: #### 2 [id number] #### [facility] [address] [place] [address] Eosinophils/100 WBC (Bld) 7.0 % Normal 0.0-8.0 [facility] Comment on above: Performed By: #### 2 [id number] #### [facility] [address] [place] [address] Erythrocyte distribution width (RBC) [Ratio] 14.1 % Normal 10.9-14.2 [facility] Comment on above: Performed By: #### 2 [id number] #### [facility] [address] [place] [address] Hematocrit (Bld) [Volume fraction] 34.4 % Normal 34.0-46.0 [facility] Comment on above: Performed By: #### 2 [id number] #### [facility] [address] [place] [address] Hemoglobin (Bld) [Mass/Vol] 11.7 g/dL Low 12.0-16.0 [facility] Comment on above: Performed By: #### 2 [id number] #### [facility] [address] [place] [address] Lymph Absolute 0.9 E9/L Low 1.0-4.0 [facility] Comment on above: Performed By: #### 2 [id number] #### [facility] [address] [place] [address] Lymphocytes/100 WBC (Bld) 7.1 % Low 14.0-50.0 [facility] Comment on above: Performed By: #### 2 [id number] #### [facility] [address] [place] [address] MCH (RBC) [Entitic mass] 34.1 pg High 27.0-34.0 [facility] Comment on above: Performed By: #### 2 [id number] #### [facility] [address] [place] [address] MCHC (RBC) [Mass/Vol] 33.8 g/dL Normal 31.4-36.0 [facility] Comment on above: Performed By: #### 2 [id number] #### [facility] [address] [place] [address] MCV (RBC) [Entitic vol] 100.7 fL High 80.0-100.0 [facility] Comment on above: Performed By: #### 2 [id number] #### [facility] [address] [place] [address] Hughes Absolute 1.0 E9/L Normal 0.2-1.0 [facility] [facility] Comment on above: Performed By: #### 2 [id number] #### [facility] [address] [place] [address] Monocytes/100 WBC (Bld) 8.5 % Normal 4.0-14.0 [facility] Comment on above: Performed By: #### 2 [id number] #### [facility] [address] [place] [address] Neutro Absolute 9.4 E9/L High 2.0-7.5 [facility] Comment on above: Performed By: #### 2 [id number] #### [facility] [address] [place] [address] Neutro Auto 76.7 % High 36.0-75.0 [facility] Comment on above: Performed By: #### 2 [id number] #### [facility] [address] [place] [address] Platelet 195.0 E9/L Normal 150.0-500.0 [facility] Comment on above: Performed By: #### 2 [id number] #### [facility] [address] [place] [address] Platelet mean volume (Bld) [Entitic vol] 7.8 fL Normal 6.4-10.8 [facility] Comment on above: Performed By: #### 2 [id number] #### [facility] [address] [place] [address] RBC 3.4 E12/L Low 4.3-5.9 [facility] Comment on above: Performed By: #### 2 [id number] #### [facility] [address] [place] [address] WBC 12.2 E9/L High 4.0-11.0 [facility] Comment on above: Performed By: #### 2 [id number] #### [facility] [address] [place] [address] Inpatient Clinical Summaryon 01-15-2025 Inpatient Clinical Summary Inpatient Clinical Summary [address] [address] Clinical Summary Person Information: Name: LINDA NASCIMENTO Age: 74 Years : 1950 Sex: Female PCP: Ave Mehta MD Marital Status: Race: White Ethnicity: Non- or Language: Peruvian Visit Id: Visit Reason: Potential stroke; Syncope/Near syncope; Weakness or fatigue; POSS STROKE Speciality: Acuity: Enc Type: Inpatient Med Service: Medical Arrival: 01/13/2025 13:01:29 Discharge: Dispo Type: Admitted as IP to this Hosp Address: [address] [place] [phone] Provider Notes: Diagnosis: 1:Sepsis; 2:Pneumonia; 3:Acute hypoxic [...] Physician: Jarrod Mahajan III, DO Consulting Physician: [facility] Wound, XXXX; Marino Roe MD Referring Physician: Follow up: With: Address: When: neurology Within 2 to 4 weeks Comments: call [phone] to scheduled an appt Patient Education Information: Diandra [facility] Inpatient Patient Summaryon 01-15-2025 Inpatient Patient Summary Inpatient Patient Summary LINDA NASCIMENTO :1950 Visit Date:01/13/2025 Inpatient Discharge Instructions Your Care Team Admitting Physician - Jarrod Mahajan III, DO Consulting Physician - Bhupinder OLIVER Marino [facility] Wound, XXXX Reason for Your Visit pna [...] Within 2 to 4 weeks Comments: call [phone] to scheduled an appt Where: The Following [...] 1 Tablets By Mouth Every day 01/16 @ 899 Unchanged baclofen (baclofen 20 mg Tab) 1 Tablets By Mouth Every day 01/16 @ 899 Unchanged benzonatate (Tessalon 100 mg Cap) 2 Capsules By Mouth 3 times a day 01/15 @ 1399 Unchanged carvedilol (carvedilol 25 mg Tab) 1 Tablets By Mouth 2 times a day 01/15 Unchanged clonazepam (ClonazePAM 0.5 mg Tab) 1 Tablets By Mouth 3 times a day as needed Unchanged dapagliflozin (Farxiga 10 mg oral tablet) 1 Tablets By Mouth Every day 01/16 @ 899 Unchanged donepezil (Aricept 10 mg Tab) 1 Tablets By Mouth Once a day (at bedtime) 01/16 Unchanged escitalopram (Lexapro 10 mg Tab) 1 Tablets By Mouth Every day 01/16 @ 899 Unchanged fentanyl (fentaNYL 50 mcg/ hr Transderm ER Film) 1 Patches Topical Every 72 hours placed 01/14 Unchanged ferrous fumarate (ferrous fumarate 325 mg oral tablet) 1 Tablets By Mouth Every day 01/16 @ 899 Unchanged furosemide (furosemide 20 mg Tab) 3 Tablets By Mouth Every day 01/16 Unchanged ipratropium Inhalation 4 times a day Unchanged lamotrigine (lamotrigine 150 mg Tab) 1 Tablets By Mouth Every day 01/16 @ 899 Unchanged losartan (losartan 25 mg Tab) 1 Tablets By Mouth Every day 01/16 @ 899 Unchanged olanzapine (olanzapine 15 mg oral tablet) (more content not included)... Normal [facility] Inpatient Patient Summary Inpatient Patient Summary [place] [address] Patient Discharge Instructions PERSON INFORMATION Name: LINDA [...] fibrillation; 11:Pacemaker; 12:Chronic GERD Condition at Discharge: LINDA NASCIMENTO has been given the following [...] Within 2 to 4 weeks Comments: call [phone] to scheduled an appt In the event [...] every day. Last (more content not included)... Normal [facility] Interdisciplinary Note - Antony e Manageron 01-15-2025 Interdisciplinary Note - Dinkey Engine Firer/Fireman Interdisciplinary Note - Dinkey Engine Firer/Fireman Plan remains for patient to return to her LTC facility at [facility] when medically stable. Updates provided to facility. Copy of IMM at bedside. CM to follow. [facility] Comment on above: Result Comment: Elec tronically Signed By: Kim Gamboa I\.br\Date and Time Signed: 01/15/25 09:14 EDT MRSA [...] Locations R1: This test was performed at: [facility], [address] [place] [address], [id number] , [place], [facility] Comment on above: Performed By: #### 1 [id number] #### [facility] [address] [place] [address] eGFRon 01-15-2025 eGFR 36 mL/min/1.73 m2 Low >=59 [facility] Comment on above: Performed By: #### 1 [id number] #### [facility] [address] [place] [address] CBC w/ Auto Diffon 5 Basophil Absolute 0.1 E9/L Normal 0.0-0.2 [facility] Comment on above: Performed By: #### 2 [id number] #### [facility] [address] [place] [address] Basophils/100 WBC (Bld) 0.5 % Normal 0.0-2.0 [facility] Comment on above: Performed By: #### 2 [id number] #### [facility] [address] [place] [address] Eos Absolute 0.5 E9/L Normal 0.0-0.5 [facility] Comment on above: Performed By: #### 2 [id number] #### [facility] [address] [place] [address] Eosinophils/100 WBC (Bld) 3.9 % Normal 0.0-8.0 [facility] Comment on above: Performed By: #### 2 [id number] #### [facility] [address] [place] [address] Erythrocyte distribution width (RBC) [Ratio] 14.2 % Normal 10.9-14.2 [facility] Comment on above: Performed By: #### 2 [id number] #### [facility] [address] [place] [address] Hematocrit (Bld) [Volume fraction] 32.5 % Low 34.0-46.0 [facility] Comment on above: Performed By: #### 2 572631 #### [facility] [address] [place] [address] Hemoglobin (Bld) [Mass/Vol] 11.1 g/dL Low 12.0-16.0 [facility] Comment on above: Performed By: #### 2 001004 #### [facility] [address] [place] [address] Lymph Absolute 1.3 E9/L Normal 1.0-4.0 [facility] Comment on above: Performed By: #### 2 284454 #### [facility] [address] [place] [address] Lymphocytes/100 WBC (Bld) 10.4 % Low 14.0-50.0 [facility] Comment on above: Performed By: #### 2 851294 #### [facility] [address] [place] [address] MCH (RBC) [Entitic mass] 34.7 pg High 27.0-34.0 [facility] Comment on above: Performed By: #### 2 755127 #### [facility] [address] [place] [address] MCHC (RBC) [Mass/Vol] 34.2 g/dL Normal 31.4-36.0 [facility] Comment on above: Performed By: #### 2 [id number] #### [facility] [address] [place] [address] MCV (RBC) [Entitic vol] 101.5 fL High 80.0-100.0 [facility] Comment on above: Performed By: #### 2 772118 #### [facility] [address] [place] [address] Hughes Absolute 1.1 E9/L High 0.2-1.0 [facility] Comment on above: Performed By: #### 2 347236 #### [facility] [address] [place] [address] Monocytes/100 WBC (Bld) 9.0 % Normal 4.0-14.0 [facility] Comment on above: Performed By: #### 2 352700 #### [facility] [address] [place] [address] Neutro Absolute 9.2 E9/L High 2.0-7.5 [facility] Comment on above: Performed By: #### 2 [id number] #### [facility] [address] [place] [address] Neutro Auto 76.2 % High 36.0-75.0 [facility] Comment on above: Performed By: #### 2 855508 #### [facility] [address] [place] [address] Platelet 189.0 E9/L Normal 150.0-500.0 [facility] Comment on above: Performed By: #### 2 874367 #### [facility] [address] [place] [address] Platelet mean volume (Bld) [Entitic vol] 7.4 fL Normal 6.4-10.8 [facility] Comment on above: Performed By: #### 2 835434 #### [facility] [address] [place] [address] RBC 3.2 E12/L Low 4.3-5.9 [facility] Comment on above: Performed By: #### 2 571402 #### [facility] [address] [place] [address] WBC 12.1 E9/L High 4.0-11.0 [facility] Comment on above: Performed By: #### 2 923128 #### [facility] [address] [place] [address] CMPon 01-14-2025 Albumin [Mass/Vol] 3.5 g/dL Normal 3.3-5.0 [facility] Comment on above: Performed By: #### 2 [id number] #### [facility] [address] [place] [address] Albumin/Globulin [Mass ratio] 1.3 {ratio} Normal 1.1-2.2 [facility] Comment on above: Performed By: #### 2 496820 #### [facility] [address] [place] [address] Alk Phos 66 Int._Unit/L Normal 21-98 [facility] Comment on above: Performed By: #### 2 126953 #### [facility] [address] [place] [address] ALT 7 Int._Unit/L Normal 6-46 [facility] Comment on above: Performed By: #### 2 092538 #### [facility] [address] [place] [address] Anion gap [Moles/Vol] 10 mmol/L Normal 6-16 [facility] Comment on above: Performed By: #### 2 438442 #### [facility] [address] [place] [address] AST 13 Int._Unit/L Normal 5-43 [facility] Comment on above: Performed By: #### 2 259444 #### [facility] [address] [place] [address] Bili Total 0.6 mg/dL Normal 0.0-1.1 [facility] Comment on above: Performed By: #### 2 253153 #### [facility] [address] [place] [address] BUN/Creat Ratio 17 No Units Normal 10-20 [facility] Comment on above: Performed By: #### 2 706259 #### [facility] [address] [place] [address] Calcium [Mass/Vol] 8.6 mg/dL Low 8.9-11.1 [facility] Comment on above: Performed By: #### 2 444543 #### [facility] [address] [place] [address] Chloride [Moles/Vol] 103 mmol/L Normal 101-111 [facility] Comment on above: Performed By: #### 2 665084 #### [facility] [address] [place] [address] CO2 [Moles/Vol] 33 mmol/L High 21-31 [facility] Comment on above: Performed By: #### 2 109138 #### [facility] [address] [place] [address] Creatinine [Mass/Vol] 1.5 mg/dL High 0.5-1.3 [facility] Comment on above: Performed By: #### 2 630683 #### [facility] [address] [place] [address] Globulin (S) [Mass/Vol] 2.6 g/dL Normal 1.4-4.0 [facility] Comment on above: Performed By: #### 2 018756 #### [facility] [address] [place] [address] Glucose [Mass/Vol] 90 mg/dL Normal 55-199 [facility] Comment on above: Performed By: #### 2 094737 #### [facility] [address] [place] [address] Potassium [Moles/Vol] 3.7 mmol/L Normal 3.5-5.3 [facility] Comment on above: Performed By: #### 2 869809 #### [facility] [address] [place] [address] Protein [Mass/Vol] 6.1 g/dL Normal 6.0-7.8 [facility] Comment on above: Performed By: #### 2 547993 #### [facility] [address] [place] [address] Sodium [Moles/Vol] 142 mmol/L Normal 135-145 [facility] Comment on above: Performed By: #### 2 925154 #### [facility] [address] [place] [address] Urea nitrogen [Mass/Vol] 25 mg/dL High 5-21 [facility] Comment on above: Performed By: #### 2 676530 #### [facility] [address] [place] [address] [id number] 01-14-2025 HbA1c (Bld) [Mass fraction] 5.6 % Normal <=5.9 [facility] Comment on above: Performed By: #### 7 [id number] #### [facility] [address] [place] [address] MRA Head w/o Contraston 08-0 MRA Head w/o Contrast Exam Date/Time: 01/14/2025 16:51 EDT Reason for Exam: TIA Report Please see MRI brain report. Ordering Provider: Jarrod Mahajan FINAL REPORT Dictated: 01/14/2025 5:19 pm Dwight Coffey DO Signed (Electronic Signature): 01/14/2025 5:19 pm Signed by: Dwight Coffey DO Transcribed by: BEATRIZ Technologist: LULY Jim [facility] MRA Neck w/o Contraston 08-0 MRA Neck w/o Contrast Exam Date/Time: 01/14/2025 16:51 EDT Reason for Exam: TIA Report IMPRESSION: NO DISSECTION, HIGH GRADE STENOSIS OR ANEURYSM. EXAM: MR angiogram of the neck without contrast HISTORY: TIA TECHNIQUE: Axial 2-D and 3-D [id number] images of the vasculature of the neck [...] Coffey DO Transcribed by: BEATRIZ Technologist: LULY Jim [facility] MRI Brain w/o Contraston MRI Brain w/o [...] brain was performed without contrast. Axial 3-D [id number] images of the brain were obtained without [...] DO Transcribed by: BEATRIZ Technologist: LULY Normal [facility] eGFRon 01-14-2025 eGFR 36 mL/min/1.73 m2 Low >=59 [facility] Comment on above: Performed By: #### 1 [id number] #### [facility] [address] [place] [address] BB Draw & Holdon 01-13-2025 BB D&H Sample drawn for Blood Ba Normal [facility] Comment on above: Performed By: #### 1 [id number] #### [facility] [address] [place] [address] BMPon 01-13-2025 Anion gap [Moles/Vol] 15 mmol/L Normal 6-16 [facility] Comment on above: Performed By: #### 2 394052 #### [facility] [address] [place] [address] BUN/Creat Ratio 16 No Units Normal 10-20 [facility] Comment on above: Performed By: #### 2 [id number] #### [facility] [address] [place] [address] Calcium [Mass/Vol] 9.9 mg/dL Normal 8.9-11.1 [facility] Comment on above: Performed By: #### 2 335074 #### [facility] [address] [place] [address] Chloride [Moles/Vol] 99 mmol/L Low 101-111 [facility] Comment on above: Performed By: #### 2 385477 #### [facility] [address] [place] [address] CO2 [Moles/Vol] 29 mmol/L Normal 21-31 [facility] Comment on above: Performed By: #### 2 274677 #### [facility] [address] [place] [address] Creatinine [Mass/Vol] 1.6 mg/dL High 0.5-1.3 [facility] Comment on above: Performed By: #### 2 426771 #### [facility] [address] [place] [address] Glucose [Mass/Vol] 172 mg/dL Normal 55-199 [facility] Comment on above: Performed By: #### 2 471970 #### [facility] [address] [place] [address] Potassium [Moles/Vol] 3.8 mmol/L Normal 3.5-5.3 [facility] Comment on above: Performed By: #### 2 955556 #### [facility] [address] [place] [address] Sodium [Moles/Vol] 139 mmol/L Normal 135-145 [facility] Comment on above: Performed By: #### 2 460783 #### [facility] [address] [place] [address] Urea nitrogen [Mass/Vol] 26 mg/dL High 5-21 [facility] Comment on above: Performed By: #### 2 678723 #### [facility] [address] [place] [address] BNPon 01-13-2025 Int Ctr BNP Pass Normal [facility] Comment on above: Performed By: #### 1 [id number] #### [facility] [address] [place] [address] Natriuretic peptide B (Bld) [Mass/Vol] 370 pg/mL High 5-80 [facility] Comment on above: Performed By: #### 1 [id number] #### [facility] [address] [place] [address] CBC w/ Auto Diffon 5 Basophil Absolute 0.1 E9/L Normal 0.0-0.2 [facility] Comment on above: Performed By: #### 2 821400 #### [facility] [address] [place] [address] Basophils/100 WBC (Bld) 0.5 % Normal 0.0-2.0 [facility] Comment on above: Performed By: #### 2 632038 #### [facility] [address] [place] [address] Eos Absolute 0.1 E9/L Normal 0.0-0.5 [facility] Comment on above: Performed By: #### 2 209855 #### [facility] [address] [place] [address] Eosinophils/100 WBC (Bld) 0.4 % Normal 0.0-8.0 [facility] Comment on above: Performed By: #### 2 827360 #### [facility] [address] [place] [address] Erythrocyte distribution width (RBC) [Ratio] 14.3 % High 10.9-14.2 [facility] Comment on above: Performed By: #### 2 792212 #### [facility] [address] [place] [address] Hematocrit (Bld) [Volume fraction] 38.6 % Normal 34.0-46.0 [facility] Comment on above: Performed By: #### 2 372707 #### [facility] [address] [place] [address] Hemoglobin (Bld) [Mass/Vol] 13.4 g/dL Normal 12.0-16.0 [facility] Comment on above: Performed By: #### 2 595223 #### [facility] [address] [place] [address] Lymph Absolute 0.7 E9/L Low 1.0-4.0 [facility] Comment on above: Performed By: #### 2 484941 #### [facility] [address] [place] [address] Lymphocytes/100 WBC (Bld) 5.2 % Low 14.0-50.0 [facility] Comment on above: Performed By: #### 2 072462 #### [facility] [address] [place] [address] MCH (RBC) [Entitic mass] 34.9 pg High 27.0-34.0 [facility] Comment on above: Performed By: #### 2 754167 #### [facility] [address] [place] [address] MCHC (RBC) [Mass/Vol] 34.6 g/dL Normal 31.4-36.0 [facility] Comment on above: Performed By: #### 2 937341 #### [facility] [address] [place] [address] MCV (RBC) [Entitic vol] 100.7 fL High 80.0-100.0 [facility] Comment on above: Performed By: #### 2 266497 #### [facility] [address] [place] [address] Hughes Absolute 0.3 E9/L Normal 0.2-1.0 [facility] Comment on above: Performed By: #### 2 850261 #### [facility] [address] [place] [address] Monocytes/100 WBC (Bld) 2.2 % Low 4.0-14.0 [facility] Comment on above: Performed By: #### 2 111540 #### [facility] [address] [place] [address] Neutro Absolute 12.6 E9/L High 2.0-7.5 [facility] Comment on above: Performed By: #### 2 [id number] #### [facility] [address] [place] [address] Neutro Auto 91.7 % High 36.0-75.0 [facility] Comment on above: Performed By: #### 2 703030 #### [facility] [address] [place] [address] Platelet 233.0 E9/L Normal 150.0-500.0 [facility] Comment on above: Performed By: #### 2 849548 #### [facility] [address] [place] [address] Platelet mean volume (Bld) [Entitic vol] 7.2 fL Normal 6.4-10.8 [facility] Comment on above: Performed By: #### 2 954175 #### [facility] [address] [place] [address] RBC 3.8 E12/L Low 4.3-5.9 [facility] Comment on above: Performed By: #### 2 063166 #### [facility] [address] [place] [address] WBC 13.7 E9/L High 4.0-11.0 [facility] Comment on above: Performed By: #### 2 104741 #### [facility] [address] [place] [address] COVID-19 ([facility])on 01-13-2025 SARS-CoV-2 (COVID-19) RNA DONNIE+probe Ql (Unsp spec) Not detected Normal Not Detected [facility] Comment on above: Result Comment: This assay [...] Emergency Use Authorization. Performed By: #### 2 [id number] #### [facility] [address] [place] [address] SARS-CoV-2 (COVID-19) RNA DONNIE+probe Ql (Unsp spec) Pass Normal Pass [facility] Comment on above: Performed By: #### 2 [id number] #### [facility] [address] [place] [address] Specimen source Nom (Unsp spec) Nasal Normal [facility] Comment on above: Performed By: #### 2 [id number] #### [facility] [address] [place] [address] CT Head or Brain w/o Contras ton [...] MD Transcribed by: BEATRIZ Technologist: JULIA Jim [facility] ED Clinical Summaryon 2024 ED Clinical Summary ED Clinical Summary [address] [address] ED Clinical Summary Person Information Name: LINDA NASCIMENTO [facility] Age: 74 Years : 1950 Sex: Female Language: Peruvian PCP: Ave Mehta MD Marital Status: Visit Id: Visit Reason: Potential stroke; Syncope/Near syncope; Weakness or fatigue; POSS STROKE Speciality: Acuity: 2 Enc Type: Inpatient Med Service: Medical Arrival: 01/13/2025 13:01:29 Discharge: LOS: 000 02:54 Checkin: 01/13/2025 13:01:29 Checkout: 01/13/2025 15:55:23 Dispo Type: Admitted as IP to this [facility] EVENTS: Event Name Event Status Request [...] 01/13/2025 15:55:23 01/13/2025 15:55:23 01/13/2025 15:55:23 ADDRESS: [address] [place] [id number] PHYS DOC NOTES: MEDICAL INFORMATION: Prescriptions Given: Medications [...] hypoxic respiratory failure; 6:Acute kidney injury Normal [facility] ED Note-Physicianon 01-14-20 ED Note-Physician ED Note-Physician Basic Information Time Seen: Brittny Broussard M.D. 01/13/2025 13:11 Chief Complaint patient last well known time is 1130. patient at lunch, per [facility] pt went unresponsive, EMS called and were informed that patient possible stroke, Patient initiated IV, patient transported to [facility] ED, History of Present Illness The patient is a 74-year-old female past medical history of atrial fibrillation on Eliquis, status post pacemaker placement who presented to the emergency room from [facility] for possible stroke. The patient [...] age Procedure Sepsis Data [ ] Patient's [place] body weight was considered in sepsis fluid [...] and Complexity of Problems Differential Diagnosis: [] [facility] Data External documents reviewed: [] My [...] vital sig (more content not included)... Normal [facility] Comment on above: Result Comment: Elec tronically Signed By: Brittny Broussard M.D.\.sharan\Date and Time Signed: 01/13/25 16:21 EDT ED Patient Education Noteon 01-13-2025 ED Patient Education Note ED Patient Education Note Normal [facility] ED Patient Summaryon 025 ED Patient Summary ED Patient Summary [place] [id number] Patient Discharge Instructions Person Information Name: LINDA NASCIMENTO Age: 74 Years Arrival Date: 01/13/2025 13:01:29 Discharge Diagnosis: 1:Sepsis; 2:Pneumonia; 3:Stroke-like symptoms; 4:Aphasia; 5:Acute hypoxic respiratory failure; 6:Acute kidney injury Primary Care Physician: Ave Mehta MD Provider Information Primary Provider: Brittny Broussard M.D. Advanced Glove Parts Cutter:None The exam and treatment you received in the Emergency Department were for an urgent problem and are not intended as complete care. It is important that you follow up with a doctor, nurse practitioner, or physician???s biology research assistant for ongoing care. If your symptoms become [...] opioids can be used to help relieve impkqswi-if-mtmmyk pain and are often prescribed following a [...] be struggling with addiction, tell your health outdoor emergency care technician and ask for guidance or call [facility]???S National Helpline at 5-871-238-ATFY. (more content not included)... [facility] Hep Func Panelon 01-13-2025 Albumin [Mass/Vol] 4.5 g/dL Normal 3.3-5.0 [facility] Comment on above: Performed By: #### 2 [id number] #### [facility] [address] [place] [address] Albumin/Globulin [Mass ratio] 1.3 {ratio} Normal 1.1-2.2 [facility] Comment on above: Performed By: #### 2 [id number] #### [facility] [address] [place] [address] Alk Phos 86 Int._Unit/L Normal 21-98 [facility] Comment on above: Performed By: #### 2 [id number] #### [facility] [address] [place] [address] ALT 10 Int._Unit/L Normal 6-46 [facility] Comment on above: Performed By: #### 2 [id number] #### [facility] [address] [place] [address] AST 22 Int._Unit/L Normal 5-43 [facility] Comment on above: Performed By: #### 2 [id number] #### [facility] [address] [place] [address] Bili Direct 0.1 mg/dL Normal 0.0-0.4 [facility] Comment on above: Performed By: #### 2 [id number] #### [facility] [address] [place] [address] Bili Indirect 0.6 mg/dL Normal 0.1-0.9 [facility] Comment on above: Performed By: #### 2 [id number] #### [facility] [address] [place] [address] Bili Total 0.7 mg/dL Normal 0.0-1.1 [facility] Comment on above: Performed By: #### 2 [id number] #### [facility] [address] [place] [address] Globulin (S) [Mass/Vol] 3.5 g/dL Normal 1.4-4.0 [facility] Comment on above: Performed By: #### 2 [id number] #### [facility] [address] [place] [address] Protein [Mass/Vol] 8.0 g/dL High 6.0-7.8 [facility] Comment on above: Performed By: #### 2 [id number] #### [facility] [address] [place] [address] Lactic Acidon 01-13-2025 Lactic Acid Lvl 1.2 mmol/L Normal 0.5-2.2 [facility] Comment on above: Order Comment: Order added by EKS Rule. (FT_LACTIC_ACID_REFLEX) Adds reflex Lactic Acid 4 hours after initial if result is greater than or equal to 2.0. Performed By: #### 2 [id number] #### [facility] [address] [place] [address] Lactic Acid Lvl 2.1 mmol/L Normal 0.5-2.2 [facility] Comment on above: Performed By: #### 2 [id number] #### [facility] [address] [place] [address] Magnesiumon 01-13-2025 Magnesium [Mass/Vol] 1.9 mg/dL Normal 1.3-2.4 [facility] Comment on above: Performed By: #### 2 [id number] #### [facility] [address] [place] [address] PT & PTTon 01-13-2025 INR Coag (PPP) [Relative time] 2.02 {INR} Invalid Interpretation Code [facility] Comment on above: Result Comment: INR results are specifically intended to assess patients stabilized on long-term Anticoagulation therapy suggested INR???s ???Less Intensive Anticoagulation??? 2.0 ??? 3.0 Conventional Range 3.0 ??? 4.5 Performed By: #### 1 [id number] #### [facility] [address] [place] [address] PT 22.8 second(s) High 9.4-12.5 [facility] Comment on above: Result Comment: 15 d [...] the same coagulation reagent and instrumentation as [facility]. Currently there are no coagulation studies available worldwide for children to 14 days, and no normal ranges. Performed By: #### 1 [id number] #### [facility] [address] [place] [address] PTT 39.6 second(s) High 25.1-36.5 [facility] Comment on above: Result Comment: Para meter [...] the same coagulation reagent and instrumentation as [facility]. Currently there are no coagulation studies available worldwide for children to 14 days, and no normal ranges. Heparin therapeutic range (represented by Anti-Factor Xa activity of 0.2 - 0.4 U/mL) corresponds to PTT of 56.6 - 109.0 sec. Performed By: #### 1 [id number] #### [facility] [address] [place] [address] Pre-Arrival Noteon Pre-Arrival Note Pre-Arrival Note Pre-Arrival Summary Name: [facility] Current Date: 01/13/2025 13:01:54 EDT Gender: Female Date of : Age: 74 Pre-Arrival Type: EMS ETA: 01/13/2025 13:25:00 EDT Primary Care Physician: Presenting Problem: stroke Pre-Arrival User: Cassia Alcaraz RN Referring Source: Location: MD Completion Date/Time: 01/13/2025 12:55:00 [facility] Emergency Department Pre-Hospital Report Form Vital Signs: Pre-Hospital Report: Treatment in Route: Response to Treatment: Misc. Issues: Normal [facility] Procalcitoninon 01-13-2025 Procalcitonin <.05 Normal .00-.50 [facility] Comment on above: Result Comment: <0.5 ng/mL [...] to 24 hours. Performed By: #### 2 [id number] #### [facility] [address] [place] [address] Respiratory Panel by PCRon 0 01-13-2025 Adenovirus Not detected Normal [facility] Comment on above: Result Comment: Test ing was performed using nucleic acid amplification including Influenza A, Influenza A H1, Influenza A H3, Influenza B, RSV A, RSV B, Adenovirus, Human Metapneumovirus, Parainfluenza 1,2,3, and 4, Rhinovirus, Bordetella parapertussis/bronchiseptica, Bordetella holmesii, and Bordetella pertussis. Performed By: #### 1 [id number] #### [facility] [address] [place] [address] B. holmesii Not detected Normal [facility] Comment on above: Performed By: #### 1 [id number] #### [facility] [address] [place] [address] B. parapertussis/bronchise ptica Not detected Normal Not Detected [facility] Comment on above: Performed By: #### 1 [id number] #### [facility] [address] [place] [address] B. pertussis Not detected Normal Not Detected [facility] Comment on above: Performed By: #### 1 [id number] #### [facility] [address] [place] [address] Human Metapneumovirus Not detected Normal [facility] Comment on above: Result Comment: This test result should be correlated with clinical presentations and medical history by a healthcare provider to determine its clinical significance. Performed By: #### 1 [id number] #### [facility] [address] [place] [address] Influenza A Not detected Normal [facility] Comment on above: Performed By: #### 1 [id number] #### [facility] [address] [place] [address] Influenza A (subtype H1) Not detected Normal [facility] Comment on above: Performed By: #### 1 [id number] #### [facility] [address] [place] [address] Influenza A (subtype H3) Not detected Normal [facility] Comment on above: Performed By: #### 1 [id number] #### [facility] [address] [place] [address] Influenza B Not detected Normal [facility] Comment on above: Performed By: #### 1 [id number] #### [facility] [address] [place] [address] Parainfluenza 1 Not detected Normal [facility] Comment on above: Performed By: #### 1 [id number] #### [facility] [address] [place] [address] Parainfluenza 2 Not detected Normal [facility] Comment on above: Performed By: #### 1 [id number] #### [facility] [address] [place] [address] Parainfluenza 3 Not detected Normal [facility] Comment on above: Performed By: #### 1 [id number] #### [facility] [address] [place] [address] Parainfluenza 4 Not detected Normal [facility] Comment on above: Performed By: #### 1 [id number] #### [facility] [address] [place] [address] Resp Panel Intrl QC Pass Normal [facility] Comment on above: Performed By: #### 1 [id number] #### [facility] [address] [place] [address] Rhinovirus Not detected Normal [facility] Comment on above: Performed By: #### 1 [id number] #### [facility] [address] [place] [address] RSV A Not detected Normal [facility] Comment on above: Performed By: #### 1 [id number] #### [facility] [address] [place] [address] RSV B Not detected Normal [facility] Comment on above: Performed By: #### 1 [id number] #### [facility] [address] [place] [address] Troponin 0 Hr.on 01-13-2025 Troponin HS 10.60 pg/mL Normal 10.10-27.10 [facility] Comment on above: Result Comment: The 95% CI (Confidence Interval) PPV (Positive Predictive Value) for myocardial infarction in females is 38 pg/mL, in males 51 pg/mL. The results should be used in conjunction with clinical conditions of myocardial infarction. (Access High Sensitivity Troponin I Instructions For Use, [employer], January 2018) Performed By: #### 1 [id number] #### [facility] [address] [place] [address] Troponin 1 Hr.on 01-13-2025 Troponin HS 17.50 pg/mL Normal 10.10-27.10 [facility] Comment on above: Result Comment: The 95% CI (Confidence Interval) PPV (Positive Predictive Value) for myocardial infarction in females is 38 pg/mL, in males 51 pg/mL. The results should be used in conjunction with clinical conditions of myocardial infarction. (Access High Sensitivity Troponin I Instructions For Use, [employer], January 2018) Performed By: #### 1 [id number] #### [facility] [address] [place] [address] UA with Cult Rflxon 01-14-20 25 Color (U) Colorless Abnormal Yellow [facility] Comment on above: Result Comment: Micr oscopic readings are only performed on those samples that meet specific criteria set forth by [facility]. Performed By: #### 4 [id number] #### [facility] [address] [place] [address] Ketones Ql (U) Negative Normal Negative [facility] Comment on above: Performed By: #### 4 [id number] #### [facility] [address] [place] [address] UA Blood Negative Normal Negative [facility] Comment on above: Performed By: #### 4 [id number] #### [facility] [address] [place] [address] UA Clarity Clear Normal Clear [facility] Comment on above: Performed By: #### 4 [id number] #### [facility] [address] [place] [address] UA Glucose 3+ mg/dL Abnormal Negative [facility] Comment on above: Performed By: #### 4 [id number] #### [facility] [address] [place] [address] UA Leuk Est Negative Normal Negative [facility] Comment on above: Performed By: #### 4 [id number] #### [facility] [address] [place] [address] UA Nitrite Negative Normal Negative [facility] Comment on above: Performed By: #### 4 [id number] #### [facility] [address] [place] [address] UA pH 6.5 Invalid Interpretation Code 5.0-9.0 [facility] Comment on above: Performed By: #### 4 [id number] #### [facility] [address] [place] [address] UA Protein Negative Normal Negative [facility] Comment on above: Performed By: #### 4 [id number] #### [facility] [address] [place] [address] UA Spec Grav 1.006 Invalid Interpretation Code 1.005-1.030 [facility] Comment on above: Performed By: #### 4 [id number] #### [facility] [address] [place] [address] UA Urobilinogen Negative Normal Negative [facility] Comment on above: Performed By: #### 4 [id number] #### [facility] [address] [place] [address] Urobilinogen (U) [Mass/Vol] Negative Normal Negative [facility] Comment on above: Performed By: #### 4 [id number] #### [facility] [address] [place] [address] UA Spec Desc Clean Catch Normal [facility] Comment on above: Performed By: #### 4 [id number] #### [facility] [address] [place] [address] XR Chest Single Viewon 01-13 XR Chest [...] Billy Jhaveri MD Transcribed by: BEATRIZ Technologist: CHASITY Jim [facility] eGFRon 01-13-2025 eGFR 33 mL/min/1.73 m2 Low >=59 [facility] Comment on above: Performed By: #### 1 [id number] #### [facility] [address] [place] [address] Office Visiton 12-31-2024 Follow-up visit [id number] Linda Nascimento 1950 F Date Provider Department Center 12/31/2024 Rajeev-ENOCH FRANKEL JUAN Lopez Family History Problem Relation Age of Onset Lung cancer Mother Stroke Father Family Status - Relation Status Age at Mother Father Level of Service:57407 [place] OFFICE/OUTPATIENT ESTABLISHED HIGH MDM 40 MIN Normal [facility] Orders Onlyon 12-31-2024 Orders Only [id number] Linda Nascimento 1950 F Date Provider Department Center 12/31/2024 ROXY MARTIN Family History Problem Relation Age of Onset Lung cancer Mother Stroke Father Family Status - Relation Status Age at Mother Father Normal [facility] KERRI Antinuclear Antibodieson 07-31-2024 Antinuclear Abs, IFA Positive Critically abnormal . [facility] Comment on above: Result Comment: Nega tive <1:80 Borderline 1:80 Positive >1:80 Speckled cytoplasmic fluorescence is present. The antibodies noted in this pattern may be associated with, but not restricted to, primary biliary cirrhosis (PBC), polymyositis and dermatomyositis (PM/DM), and/or systemic lupus erythematosus (SLE). Performed By: #### T 4F, CK, CRP, TSH3, ESR, CBC, CMP #### [facility] [address] #### HBCAB, JUSTINA, HBSAG, ALDOLASE, HCV RX PCR, HBSAB, THYGLOB AB, CHROMATIN, C4, C3, CH50, RPR W RFX, TPO, KERRI #### [facility] , Homogeneous Pattern 1:160 High . [facility] Comment on above: Result Comment: ICAP nomenclature: [id number] Performed By: #### T 4F, CK, CRP, TSH3, ESR, CBC, CMP #### [facility] [address] #### HBCAB, JUSTINA, HBSAG, ALDOLASE, HCV RX PCR, HBSAB, THYGLOB AB, CHROMATIN, C4, C3, CH50, RPR W RFX, TPO, KERRI #### [facility] , Note 1 Comment Normal . [facility] Comment on above: Result Comment: Brigid ignacio Potential Disease Association Homogeneous Systemic Lupus Erythematosus, Drug Induced Systemic Lupus Erythematosus, Chronic Autoimmune hepatitis, Juvenile Idiopathic Arthritis Speckled Sjogren Syndrome, Systemic Lupus Erythematosus, Subacute Cutaneous Lupus, Lupus, Congenital Heart Block, Mixed Connective Tissue Disease, Scleroderma-diffuse, Scleroderma-Autoimmune Myositis Overlap Syndrome, Systemic Lupus Ijmevkkulvwhd-Sflqdcvemgd-Kiydsddqlz Myositis Overlap Syndrome, Systemic Autoimmune Rheumatic Disease, [...] Linear Scleroderma, Antiphospholipid Syndrome Performed at: - [facility] [id number] Pickling Operator: Iain Siegel PhD, Phone: [phone] Performed By: #### T 4F, CK, CRP, TSH3, ESR, CBC, CMP #### [address] #### HBCAB, JUSTINA, HBSAG, ALDOLASE, HCV RX PCR, HBSAB, THYGLOB AB, CHROMATIN, C4, C3, CH50, RPR W RFX, TPO, KERRI #### [facility] , Alanine aminotransferase [En zymatic activity/volume] in Serum or PlasmaOrdered By: Beti Ham on 07-31-2024 ALT [Catalytic activity/Vol] Alanine aminotransferase [Enzymatic activity/volume] in Serum or Plasma 7-52 [facility] Albumin [Mass/volume] in Ser um or Plasma by Bromocresol green (BCG) dye binding methoOrdered By: Beti Ham on 07-31-2024 Albumin BCG dye [Mass/Vol] Albumin [Mass/volume] in Serum or Plasma by Bromocresol green (BCG) dye binding metho 3.5-5.7 [facility] Aldolaseon 07-31-2024 Aldolase 3.3 U/L Normal 3.3-10.3 [facility] Comment on above: Result Comment: Perf ormed at: [facility] [address] [id number] Pickling Operator: Iain Siegel PhD, Phone: [phone] PERFORMED BY: [place] [address] PATHOLOGIST BOX FEEDER SARAHI JUAREZ M.D. Performed By: #### T 4F, CK, CRP, TSH3, ESR, CBC, CMP #### [address] #### HBCAB, JUSTINA, HBSAG, ALDOLASE, HCV RX PCR, HBSAB, THYGLOB AB, CHROMATIN, C4, C3, CH50, RPR W RFX, TPO, KERRI #### [facility] , Alkaline phosphatase [Enzyma tic activity/volume] in Serum or PlasmaOrdered By: Beti Ham on 07-31-2024 ALP [Catalytic activity/Vol] Alkaline phosphatase [Enzymatic activity/volume] in Serum or Plasma 34-104 [facility] Angiotensin Converting Enzym libby 07-31-2024 Angiotensin converting enzyme [Catalytic activity/Vol] 53 U/L Normal 14-82 [facility] Comment on above: Result Comment: Perf ormed at: [facility] [address] [id number] Pickling Operator: Iain Siegel PhD, Phone: [phone] Performed By: #### T 4F, CK, CRP, TSH3, ESR, CBC, CMP #### [address] #### HBCAB, JUSTINA, HBSAG, ALDOLASE, HCV RX PCR, HBSAB, THYGLOB AB, CHROMATIN, C4, C3, CH50, RPR W RFX, TPO, KERRI #### [facility] , Antithyroglobulin Abon 07-31 Antithyroglobulin Ab <1.0 Normal 0.0-0.9 [facility] Comment on above: Result Comment: Thyr oglobulin Antibody measured by [employer] Methodology It should be noted that the presence of thyroglobulin antibodies may not be pathogenic nor diagnostic, especially at very low levels. The assay cavalry officer has found that four percent of individuals without evidence of thyroid disease or autoimmunity will have positive TgAb levels up to 4 IU/mL. Performed at: [facility] [address] [id number] Pickling Operator: Iain Siegel PhD, Phone: [phone] Performed By: #### T 4F, CK, CRP, TSH3, ESR, CBC, CMP #### [place] [address] [place] #### HBCAB, JUSTINA, HBSAG, ALDOLASE, HCV RX PCR, HBSAB, THYGLOB AB, CHROMATIN, C4, C3, CH50, RPR W RFX, TPO, KERRI #### [facility] , Aspartate aminotransferase [ Enzymatic activity/volume] in Serum or PlasmaOrdered By: Beti Ham on 07-31-2024 AST [Catalytic activity/Vol] Aspartate aminotransferase [Enzymatic activity/volume] in Serum or Plasma 13-39 [facility] Basophils Auto (Bld) [#/Vol] Ordered By: Beti Ham on 07-31-2024 Basophils (Bld) [#/Vol] Automated basoph il count 0.0-0.2 [facility] Basophils/100 WBC Auto (Bld) Ordered By: Beti Ham on 02-19-2025 Basophils/100 WBC (Bld) Automated basophil % . [facility] Bilirubin.total [Mass/volume ] in Serum or PlasmaOrdered By: Beti Ham on 07-31-2024 Bilirubin [Mass/Vol] Bilirubin.total [Mass/volume] in Serum or Plasma 0.3-1.0 [facility] C reactive protein [Mass/vol ume] in Serum or PlasmaOrdered By: Beti Ham on 07-31-2024 CRP [Mass/Vol] C reactive protein [Mass/volume] in Serum or Plasma High 0.0-0.5 [facility] C-Reactive Proteinon 025 C-Reactive Protein 2.6 mg/dL High 0.0-0.5 [facility] Comment on above: Performed By: #### T 4F, CK, CRP, TSH3, ESR, CBC, CMP #### [address] #### HBCAB, JUSTINA, HBSAG, ALDOLASE, HCV RX PCR, HBSAB, THYGLOB AB, CHROMATIN, C4, C3, CH50, RPR W RFX, TPO, KERRI #### [facility] , Calcium [Mass/volume] in Ser um or PlasmaOrdered By: Beti Ham on 07-31-2024 Calcium [Mass/Vol] Calcium [Mass/volume] in Serum or Plasma 8.6-10.3 [facility] Carbon dioxide, total [Moles /volume] in Serum or PlasmaOrdered By: Beti Ham on 07-31-2024 CO2 [Moles/Vol] Carbon dioxide, total [Moles/volume] in Serum or Plasma High 21.0-31.0 [facility] Chloride [Moles/volume] in S anne or PlasmaOrdered By: Beti Ham on 07-31-2024 Chloride [Moles/Vol] Chloride [Moles/volume] in Serum or Plasma 98-107 [facility] Chromatin Antibodyon 025 Chromatin Antibody <0.2 Normal 0.0-0.9 [facility] Comment on above: Performed By: #### T 4F, CK, CRP, TSH3, ESR, CBC, CMP #### [place] [address] [place] #### HBCAB, JUSTINA, HBSAG, ALDOLASE, HCV RX PCR, HBSAB, THYGLOB AB, CHROMATIN, C4, C3, CH50, RPR W RFX, TPO, KERRI #### [facility] , Complement C3on 07-31-2024 Complement C3 189 mg/dL High 82-167 [facility] Comment on above: Result Comment: Perf ormed at: - [facility] [address] [id number] Pickling Operator: Iain Siegel PhD, Phone: [phone] Performed By: #### T 4F, CK, CRP, TSH3, ESR, CBC, CMP #### [address] #### HBCAB, JUSTINA, HBSAG, ALDOLASE, HCV RX PCR, HBSAB, THYGLOB AB, CHROMATIN, C4, C3, CH50, RPR W RFX, TPO, KERRI #### [facility] , Complement C4on 07-31-2024 Complement C4 36 mg/dL Normal 12-38 [facility] Comment on above: Performed By: #### T 4F, CK, CRP, TSH3, ESR, CBC, CMP #### [address] #### HBCAB, JUSTNIA, HBSAG, ALDOLASE, HCV RX PCR, HBSAB, THYGLOB AB, CHROMATIN, C4, C3, CH50, RPR W RFX, TPO, KERRI #### [facility] , Complement Total (CH50)on Complement Total (CH50) >60 Normal >41 T [facility] Comment on above: Result [...] out of range values. Performed at: - [facility] [id number] Pickling Operator: Iain Siegel PhD, Phone: [phone] PERFORMED BY: [place] [address] PATHOLOGIST BOX FEEDER SARAHI JUAREZ M.D. Performed By: #### T 4F, CK, CRP, TSH3, ESR, CBC, CMP #### [address] #### HBCAB, JUSTINA, HBSAG, ALDOLASE, HCV RX PCR, HBSAB, THYGLOB AB, CHROMATIN, C4, C3, CH50, RPR W RFX, TPO, KERRI #### [facility] , Complete Blood Count Auto Di ffon 07-31-2024 Basophils (Bld) [#/Vol] 0.1 10*3/uL Normal 0.0-0.2 [facility] Comment on above: Performed By: #### T 4F, CK, CRP, TSH3, ESR, CBC, CMP #### [place] [address] [place] #### HBCAB, JUSTINA, HBSAG, ALDOLASE, HCV RX PCR, HBSAB, THYGLOB AB, CHROMATIN, C4, C3, CH50, RPR W RFX, TPO, KERRI #### [facility] , Basophils/100 WBC (Bld) 0.9 % Normal . T will [facility] Comment on above: Performed By: #### T 4F, CK, CRP, TSH3, ESR, CBC, CMP #### [place] [address] [place] #### HBCAB, JUSTINA, HBSAG, ALDOLASE, HCV RX PCR, HBSAB, THYGLOB AB, CHROMATIN, C4, C3, CH50, RPR W RFX, TPO, KERRI #### [facility] , Eosinophils (Bld) [#/Vol] 0.3 10*3/uL Normal 0.0-0.45 [facility] Comment on above: Performed By: #### T 4F, CK, CRP, TSH3, ESR, CBC, CMP #### [place] [address] [place] #### HBCAB, JUSTINA, HBSAG, ALDOLASE, HCV RX PCR, HBSAB, THYGLOB AB, CHROMATIN, C4, C3, CH50, RPR W RFX, TPO, KERRI #### [facility] , Eosinophils/100 WBC (Bld) 4.4 % Normal . [facility] Comment on above: Performed By: #### T 4F, CK, CRP, TSH3, ESR, CBC, CMP #### [place] [address] [place] #### HBCAB, JUSTINA, HBSAG, ALDOLASE, HCV RX PCR, HBSAB, THYGLOB AB, CHROMATIN, C4, C3, CH50, RPR W RFX, TPO, KERRI #### [facility] , Erythrocyte distribution width (RBC) [Ratio] 15.0 % Normal 11.9-15.3 [facility] Comment on above: Performed By: #### T 4F, CK, CRP, TSH3, ESR, CBC, CMP #### [place] [address] [place] #### HBCAB, JUSTINA, HBSAG, ALDOLASE, HCV RX PCR, HBSAB, THYGLOB AB, CHROMATIN, C4, C3, CH50, RPR W RFX, TPO, KERRI #### [facility] , Hematocrit (Bld) [Volume fraction] 34.5 % Normal 34.0-46.4 [facility] Comment on above: Performed By: #### T 4F, CK, CRP, TSH3, ESR, CBC, CMP #### [place] [address] [place] #### HBCAB, JUSTINA, HBSAG, ALDOLASE, HCV RX PCR, HBSAB, THYGLOB AB, CHROMATIN, C4, C3, CH50, RPR W RFX, TPO, KERRI #### [facility] , Hemoglobin (Bld) [Mass/Vol] 12.0 g/dL Normal 11.8-15.4 [facility] Comment on above: Performed By: #### T 4F, CK, CRP, TSH3, ESR, CBC, CMP #### [address] #### HBCAB, JUSTINA, HBSAG, ALDOLASE, HCV RX PCR, HBSAB, THYGLOB AB, CHROMATIN, C4, C3, CH50, RPR W RFX, TPO, KERRI #### [facility] , Lymphocytes (Bld) [#/Vol] 1.1 10*3/uL Normal 1.00-4.8 [facility] Comment on above: Performed By: #### T 4F, CK, CRP, TSH3, ESR, CBC, CMP #### [address] #### HBCAB, JUSTINA, HBSAG, ALDOLASE, HCV RX PCR, HBSAB, THYGLOB AB, CHROMATIN, C4, C3, CH50, RPR W RFX, TPO, KERRI #### [facility] , Lymphocytes/100 WBC (Bld) 15.8 % Normal . [facility] Comment on above: Performed By: #### T 4F, CK, CRP, TSH3, ESR, CBC, CMP #### [address] #### HBCAB, JUSTINA, HBSAG, ALDOLASE, HCV RX PCR, HBSAB, THYGLOB AB, CHROMATIN, C4, C3, CH50, RPR W RFX, TPO, KERRI #### [facility] , MCH (RBC) [Entitic mass] 36.0 pg High 24.7-34.3 [facility] Comment on above: Performed By: #### T 4F, CK, CRP, TSH3, ESR, CBC, CMP #### [address] #### HBCAB, JUSTINA, HBSAG, ALDOLASE, HCV RX PCR, HBSAB, THYGLOB AB, CHROMATIN, C4, C3, CH50, RPR W RFX, TPO, KERRI #### [facility] , MCV (RBC) [Entitic vol] 103.7 fL High 80-100 [facility] Comment on above: Performed By: #### T 4F, CK, CRP, TSH3, ESR, CBC, CMP #### [address] #### HBCAB, JUSTINA, HBSAG, ALDOLASE, HCV RX PCR, HBSAB, THYGLOB AB, CHROMATIN, C4, C3, CH50, RPR W RFX, TPO, KERRI #### [facility] , Mean Corpuscular HGB Conc 34.7 g/dL Normal 32.0-35.0 [facility] Comment on above: Performed By: #### T 4F, CK, CRP, TSH3, ESR, CBC, CMP #### [address] #### HBCAB, JUSTINA, HBSAG, ALDOLASE, HCV RX PCR, HBSAB, THYGLOB AB, CHROMATIN, C4, C3, CH50, RPR W RFX, TPO, KERRI #### [facility] , Monocytes (Bld) [#/Vol] 0.5 10*3/uL Normal 0.0-0.8 [facility] Comment on above: Performed By: #### T 4F, CK, CRP, TSH3, ESR, CBC, CMP #### [place] [address] [place] #### HBCAB, JUSTINA, HBSAG, ALDOLASE, HCV RX PCR, HBSAB, THYGLOB AB, CHROMATIN, C4, C3, CH50, RPR W RFX, TPO, KERRI #### [facility] , Monocytes/100 WBC (Bld) 7.0 % Normal . [facility] Comment on above: Performed By: #### T 4F, CK, CRP, TSH3, ESR, CBC, CMP #### [address] #### HBCAB, JUSTINA, HBSAG, ALDOLASE, HCV RX PCR, HBSAB, THYGLOB AB, CHROMATIN, C4, C3, CH50, RPR W RFX, TPO, KERRI #### [facility] , Neutrophils (Bld) [#/Vol] 5.2 10*3/uL Normal 1.8-7.7 [facility] Comment on above: Performed By: #### T 4F, CK, CRP, TSH3, ESR, CBC, CMP #### [place] [address] [place] #### HBCAB, JUSTINA, HBSAG, ALDOLASE, HCV RX PCR, HBSAB, THYGLOB AB, CHROMATIN, C4, C3, CH50, RPR W RFX, TPO, KERRI #### [facility] , Neutrophils/100 WBC (Bld) 71.9 % Normal . [facility] Comment on above: Performed By: #### T 4F, CK, CRP, TSH3, ESR, CBC, CMP #### [place] [address] [place] #### HBCAB, JUSTINA, HBSAG, ALDOLASE, HCV RX PCR, HBSAB, THYGLOB AB, CHROMATIN, C4, C3, CH50, RPR W RFX, TPO, KERRI #### [facility] , NRBC% 0.1 /100{WBC} Normal 0-0.5 [facility] Comment on above: Performed By: #### T 4F, CK, CRP, TSH3, ESR, CBC, CMP #### [place] [address] [place] #### HBCAB, JUSTINA, HBSAG, ALDOLASE, HCV RX PCR, HBSAB, THYGLOB AB, CHROMATIN, C4, C3, CH50, RPR W RFX, TPO, KERRI #### [facility] , Platelet mean volume (Bld) [Entitic vol] 7.9 fL Normal 6.3-10.7 [facility] Comment on above: Performed By: #### T 4F, CK, CRP, TSH3, ESR, CBC, CMP #### [facility] [address] [place] [address] [place] #### HBCAB, JUSTINA, HBSAG, ALDOLASE, HCV RX PCR, HBSAB, THYGLOB AB, CHROMATIN, C4, C3, CH50, RPR W RFX, TPO, KERRI #### [facility] , Platelets (Bld) [#/Vol] 204 10*3/uL Normal 150-450 [facility] Comment on above: Performed By: #### T 4F, CK, CRP, TSH3, ESR, CBC, CMP #### [place] [address] [place] #### HBCAB, JUSTINA, HBSAG, ALDOLASE, HCV RX PCR, HBSAB, THYGLOB AB, CHROMATIN, C4, C3, CH50, RPR W RFX, TPO, KERRI #### [facility] , RBC (Bld) [#/Vol] 3.32 10*6/uL Low 3.60-5.00 [facility] Comment on above: Performed By: #### T 4F, CK, CRP, TSH3, ESR, CBC, CMP #### [address] #### HBCAB, JUSTINA, HBSAG, ALDOLASE, HCV RX PCR, HBSAB, THYGLOB AB, CHROMATIN, C4, C3, CH50, RPR W RFX, TPO, KERRI #### [facility] , WBC (Bld) [#/Vol] 7.2 10*3/uL Normal 3.8-11.6 [facility] Comment on above: Performed By: #### T 4F, CK, CRP, TSH3, ESR, CBC, CMP #### [place] [address] [place] #### HBCAB, JUSTINA, HBSAG, ALDOLASE, HCV RX PCR, HBSAB, THYGLOB AB, CHROMATIN, C4, C3, CH50, RPR W RFX, TPO, KERRI #### [facility] , Comprehensive Metabolic Pane mahendra 07-31-2024 Albumin [Mass/Vol] 3.7 g/dL Normal 3.5-5.7 [facility] Comment on above: Performed By: #### T 4F, CK, CRP, TSH3, ESR, CBC, CMP #### [facility] [address] [place] [address] [place] #### HBCAB, JUSTINA, HBSAG, ALDOLASE, HCV RX PCR, HBSAB, THYGLOB AB, CHROMATIN, C4, C3, CH50, RPR W RFX, TPO, KERRI #### [facility] , Albumin/Globulin [Mass ratio] 1.4 {ratio} Normal [facility] Comment on above: Performed By: #### T 4F, CK, CRP, TSH3, ESR, CBC, CMP #### [facility] [address] [place] [address] [place] #### HBCAB, JUSTINA, HBSAG, ALDOLASE, HCV RX PCR, HBSAB, THYGLOB AB, CHROMATIN, C4, C3, CH50, RPR W RFX, TPO, KERRI #### [facility] , ALP [Catalytic activity/Vol] 94 U/L Normal 34-104 [facility] Comment on above: Performed By: #### T 4F, CK, CRP, TSH3, ESR, CBC, CMP #### [place] [address] [place] #### HBCAB, JUSTINA, HBSAG, ALDOLASE, HCV RX PCR, HBSAB, THYGLOB AB, CHROMATIN, C4, C3, CH50, RPR W RFX, TPO, KERRI #### [facility] , ALT [Catalytic activity/Vol] 10 U/L Normal 7-52 [facility] Comment on above: Performed By: #### T 4F, CK, CRP, TSH3, ESR, CBC, CMP #### [place] [address] [place] #### HBCAB, JUSTINA, HBSAG, ALDOLASE, HCV RX PCR, HBSAB, THYGLOB AB, CHROMATIN, C4, C3, CH50, RPR W RFX, TPO, KERRI #### [facility] , Anion gap [Moles/Vol] 9.2 mmol/L Normal 6.0-15.0 [facility] Comment on above: Performed By: #### T 4F, CK, CRP, TSH3, ESR, CBC, CMP #### [place] [address] [place] #### HBCAB, JUSTINA, HBSAG, ALDOLASE, HCV RX PCR, HBSAB, THYGLOB AB, CHROMATIN, C4, C3, CH50, RPR W RFX, TPO, KERRI #### [facility] , AST [Catalytic activity/Vol] 14 U/L Normal 13-39 [facility] Comment on above: Performed By: #### T 4F, CK, CRP, TSH3, ESR, CBC, CMP #### [address] #### HBCAB, JUSTINA, HBSAG, ALDOLASE, HCV RX PCR, HBSAB, THYGLOB AB, CHROMATIN, C4, C3, CH50, RPR W RFX, TPO, KERRI #### [facility] , Bilirubin [Mass/Vol] 0.5 mg/dL Normal 0.3-1.0 [facility] Comment on above: Performed By: #### T 4F, CK, CRP, TSH3, ESR, CBC, CMP #### [place] [address] [place] #### HBCAB, JUSTINA, HBSAG, ALDOLASE, HCV RX PCR, HBSAB, THYGLOB AB, CHROMATIN, C4, C3, CH50, RPR W RFX, TPO, KERRI #### [facility] , Calcium [Mass/Vol] 9.2 mg/dL Normal 8.6-10.3 [facility] Comment on above: Performed By: #### T 4F, CK, CRP, TSH3, ESR, CBC, CMP #### [place] [address] [place] #### HBCAB, JUSTINA, HBSAG, ALDOLASE, HCV RX PCR, HBSAB, THYGLOB AB, CHROMATIN, C4, C3, CH50, RPR W RFX, TPO, KERRI #### [facility] , Chloride [Moles/Vol] 102 mmol/L Normal 98-107 [facility] Comment on above: Performed By: #### T 4F, CK, CRP, TSH3, ESR, CBC, CMP #### [place] [address] [place] #### HBCAB, JUSTINA, HBSAG, ALDOLASE, HCV RX PCR, HBSAB, THYGLOB AB, CHROMATIN, C4, C3, CH50, RPR W RFX, TPO, KERRI #### [facility] , CO2 [Moles/Vol] 34.1 mmol/L High 21.0-31.0 [facility] Comment on above: Performed By: #### T 4F, CK, CRP, TSH3, ESR, CBC, CMP #### [address] #### HBCAB, JUSTINA, HBSAG, ALDOLASE, HCV RX PCR, HBSAB, THYGLOB AB, CHROMATIN, C4, C3, CH50, RPR W RFX, TPO, KERRI #### [facility] , Creatinine [Mass/Vol] 1.42 mg/dL High 0.60-1.20 [facility] Comment on above: Performed By: #### T 4F, CK, CRP, TSH3, ESR, CBC, CMP #### [place] [address] [place] #### HBCAB, JUSTINA, HBSAG, ALDOLASE, HCV RX PCR, HBSAB, THYGLOB AB, CHROMATIN, C4, C3, CH50, RPR W RFX, TPO, KERRI #### [facility] , Estimated GFR 38.332 mL/Min Normal [facility] Comment on above: Performed By: #### T 4F, CK, CRP, TSH3, ESR, CBC, CMP #### [place] [address] [place] #### HBCAB, JUSTINA, HBSAG, ALDOLASE, HCV RX PCR, HBSAB, THYGLOB AB, CHROMATIN, C4, C3, CH50, RPR W RFX, TPO, KERRI #### [facility] , Globulin (S) [Mass/Vol] 2.7 g/dL Normal T he [facility] Comment on above: Performed By: #### T 4F, CK, CRP, TSH3, ESR, CBC, CMP #### [address] #### HBCAB, JUSTINA, HBSAG, ALDOLASE, HCV RX PCR, HBSAB, THYGLOB AB, CHROMATIN, C4, C3, CH50, RPR W RFX, TPO, KERRI #### [facility] , Glucose [Mass/Vol] 95 mg/dL Normal 70-100 [facility] Comment on above: Result Comment: [facility] Glucose Reference Range is dependent on time and content of last meal. Glucose of more than 200 mg/dL in a nonstressed, ambulatory subject supports the diagnosis of Diabetes Mellitus. ADA recommended reference range Performed By: #### T 4F, CK, CRP, TSH3, ESR, CBC, CMP #### [place] [address] [place] #### HBCAB, JUSTINA, HBSAG, ALDOLASE, HCV RX PCR, HBSAB, THYGLOB AB, CHROMATIN, C4, C3, CH50, RPR W RFX, TPO, KERRI #### [facility] , Potassium [Moles/Vol] 4.3 mmol/L Normal 3.5-5.1 [facility] Comment on above: Performed By: #### T 4F, CK, CRP, TSH3, ESR, CBC, CMP #### [place] [address] [place] #### HBCAB, JUSTINA, HBSAG, ALDOLASE, HCV RX PCR, HBSAB, THYGLOB AB, CHROMATIN, C4, C3, CH50, RPR W RFX, TPO, KERRI #### [facility] , Protein [Mass/Vol] 6.4 g/dL Normal 6.4-8.9 [facility] Comment on above: Performed By: #### T 4F, CK, CRP, TSH3, ESR, CBC, CMP #### [address] #### HBCAB, JUSTINA, HBSAG, ALDOLASE, HCV RX PCR, HBSAB, THYGLOB AB, CHROMATIN, C4, C3, CH50, RPR W RFX, TPO, KERRI #### [facility] , Sodium [Moles/Vol] 141 mmol/L Normal 136-145 [facility] Comment on above: Performed By: #### T 4F, CK, CRP, TSH3, ESR, CBC, CMP #### [place] [address] [place] #### HBCAB, JUSTINA, HBSAG, ALDOLASE, HCV RX PCR, HBSAB, THYGLOB AB, CHROMATIN, C4, C3, CH50, RPR W RFX, TPO, KERRI #### [facility] , Urea nitrogen [Mass/Vol] 22 mg/dL Normal 7-25 [facility] Comment on above: Performed By: #### T 4F, CK, CRP, TSH3, ESR, CBC, CMP #### [address] #### HBCAB, JUSTINA, HBSAG, ALDOLASE, HCV RX PCR, HBSAB, THYGLOB AB, CHROMATIN, C4, C3, CH50, RPR W RFX, TPO, KERRI #### [facility] , Creatine Kinaseon 07-31-2024 CK [Catalytic activity/Vol] 23 U/L Low 30-223 [facility] Comment on above: Result Comment: PERF ORMED BY: [place] [address] PATHOLOGIST [employer] FEEDER SARAHI JUAREZ M.D. Performed By: #### T 4F, CK, CRP, TSH3, ESR, CBC, CMP #### [place] [address] [place] #### HBCAB, JUSTINA, HBSAG, ALDOLASE, HCV RX PCR, HBSAB, THYGLOB AB, CHROMATIN, C4, C3, CH50, RPR W RFX, TPO, KERRI #### [facility] , Creatine kinase [Enzymatic a ctivity/volume] in Serum or PlasmaOrdered By: Beti Ham on 07-31-2024 CK [Catalytic activity/Vol] Creatine kinase [Enzymatic activity/volume] in Serum or Plasma Low 30-223 [facility] Creatinine [Mass/volume] in Serum or PlasmaOrdered By: Beti Ham on 07-31-2024 Creatinine [Mass/Vol] Creatinine [Mass/volume] in Serum or Plasma High 0.60-1.20 [facility] Eosinophils Auto (Bld) [#/Vo l]Ordered By: Beti Ham on 07-31-2024 Eosinophils (Bld) [#/Vol] Automated eosinophil count 0.0-0.45 [facility] Eosinophils/100 WBC Auto (Bl d)Ordered By: Beti Ham on 07-31-2024 Eosinophils/100 WBC (Bld) Automated eosinophil % . [facility] Erythrocyte Sedimentation Ra [place] 07-31-2024 ESR (Bld) [Velocity] 58 mm/h High 0-29 [facility] Comment on above: Result Comment: PERF ORMED BY: [place] [address] PATHOLOGIST [employer] FEEDER SARAHI JUAREZ M.D. Performed By: #### T 4F, CK, CRP, TSH3, ESR, CBC, CMP #### [address] #### HBCAB, JUSTINA, HBSAG, ALDOLASE, HCV RX PCR, HBSAB, THYGLOB AB, CHROMATIN, C4, C3, CH50, RPR W RFX, TPO, KERRI #### [facility] , Erythrocyte distribution wid th Auto (RBC) [Ratio]Ordered By: Beti Ham on 07-31-2024 Erythrocyte distribution width (RBC) [Ratio] Erythrocyte distribution width [Ratio] by Automated count 11.9-15.3 [facility] Erythrocyte sedimentation ra te by Photometric methodOrdered By: Beti Ham on 07-31-2024 ESR Photometric method (Bld) [Velocity] Erythrocyte sedimentation rate by Photometric method High 0-29 [facility] Free T4 (Free Thyroxine)on 0 07-31-2024 Free T4 [Mass/Vol] 0.80 ng/dL Normal 0.61-1.12 [facility] Comment on above: Performed By: #### T 4F, CK, CRP, TSH3, ESR, CBC, CMP #### [facility] [address] [place] [address] [place] #### HBCAB, JUSTINA, HBSAG, ALDOLASE, HCV RX PCR, HBSAB, THYGLOB AB, CHROMATIN, C4, C3, CH50, RPR W RFX, TPO, KERRI #### [facility] , Globulin Calc (S) [Mass/Vol] Ordered By: Beti Ham on 07-31-2024 Globulin (S) [Mass/Vol] Serum globulin measurement by calculation (mass/volume) [facility] Glucose [Mass/volume] in Ser um or PlasmaOrdered By: Beti Ham on 07-31-2024 Glucose [Mass/Vol] Glucose [Mass/volume] in Serum or Plasma 70-100 [facility] Comment on above: ADA recommended refe rence rangeRandom Glucose Reference Range is dependent on time and content of last meal. Glucose of more than 200 mg/dL in a nonstressed, ambulatory subject supports the diagnosis of Diabetes Mellitus. Hematocrit Auto (Bld) [Volum e fraction]Ordered By: Beti Ham on 07-31-2024 Hematocrit (Bld) [Volume fraction] Hematocrit [Volume Fraction] of Blood by Automated count 34.0-46.4 [facility] Hemoglobin [Mass/volume] in BloodOrdered By: Beti Ham on 07-31-2024 Hemoglobin (Bld) [Mass/Vol] Hemoglobin [Mass/volume] in Blood 11.8-15.4 [facility] Hep C Ab wRfx to Qnt PCRon 0 07-31-2024 Hepatitis C Virus Antibody Non-Reactive Normal Non Reactive [facility] Comment on above: Performed By: #### T 4F, CK, CRP, TSH3, ESR, CBC, CMP #### [facility] [address] [place] [address] [place] #### HBCAB, JUSTINA, HBSAG, ALDOLASE, HCV RX PCR, HBSAB, THYGLOB AB, CHROMATIN, C4, C3, CH50, RPR W RFX, TPO, KERRI #### [facility] , Interpretation Hepatitis C Comment Normal . [facility] Comment on above: Result Comment: Not infected with HCV unless early or acute infection is suspected (which may be delayed in an immunocompromised individual), or other evidence exists to indicate HCV infection. Performed By: #### T 4F, CK, CRP, TSH3, ESR, CBC, CMP #### [place] [address] [place] #### HBCAB, JUSTINA, HBSAG, ALDOLASE, HCV RX PCR, HBSAB, THYGLOB AB, CHROMATIN, C4, C3, CH50, RPR W RFX, TPO, KERRI #### [facility] , Hepatitis B Core Antibodyon 07-31-2024 Hepatitis B Core Antibody Negative Normal Negative [facility] Comment on above: Result Comment: Perf ormed at: - [facility] [id number] Pickling Operator: Iain Siegel PhD, Phone: [phone] Performed By: #### T 4F, CK, CRP, TSH3, ESR, CBC, CMP #### [place] [address] [place] #### HBCAB, JUSTINA, HBSAG, ALDOLASE, HCV RX PCR, HBSAB, THYGLOB AB, CHROMATIN, C4, C3, CH50, RPR W RFX, TPO, KERRI #### [facility] , Hepatitis B Surface Antibody on 07-31-2024 Hepatitis B Surface Antibody Non-Reactive Normal . [facility] Comment on above: Result Comment: Non Reactive: Not immune to HBV infection. Equivocal: Unable to determine if anti-HBs is present at levels consistent with immunity. Reactive: Anti-HBs concentration detected at greater than 10 mIU/mL. Individual is considered to be immune to infection with HBV. Performed By: #### T 4F, CK, CRP, TSH3, ESR, CBC, CMP #### [place] [address] [place] #### HBCAB, JUSTINA, HBSAG, ALDOLASE, HCV RX PCR, HBSAB, THYGLOB AB, CHROMATIN, C4, C3, CH50, RPR W RFX, TPO, KERRI #### [facility] , Hepatitis B Surface Antigeno n 07-31-2024 HBsAg Screen Negative Normal Negative [facility] Comment on above: Result Comment: PERF ORMED BY: [place] [address] PATHOLOGIST [employer] FEEDER SARAHI JUAREZ M.D. Performed By: #### T 4F, CK, CRP, TSH3, ESR, CBC, CMP #### [address] #### HBCAB, JUSTINA, HBSAG, ALDOLASE, HCV RX PCR, HBSAB, THYGLOB AB, CHROMATIN, C4, C3, CH50, RPR W RFX, TPO, KERRI #### [facility] , Leukocytes [#/volume] correc umang for nucleated erythrocytes in Blood by Automated counOrdered By: Beti Ham on 07-31-2024 WBC corrected for nucl RBC Auto (Bld) [#/Vol] Leukocytes [#/volume] corrected for nucleated erythrocytes in Blood by Automated coun 3.8-11.6 [facility] Lymphocytes Auto (Bld) [#/Vo l]Ordered By: Beti Ham on 07-31-2024 Lymphocytes (Bld) [#/Vol] Lymphocytes [#/volume] in Blood by Automated count 1.00-4.8 [facility] Lymphocytes/100 WBC Auto (Bl d)Ordered By: Beti Ham on 07-31-2024 Lymphocytes/100 WBC (Bld) Lymphocytes/100 leukocytes in Blood by Automated count . [facility] MCH Auto (RBC) [Entitic mass ]Ordered By: Beti Ham on 07-31-2024 MCH (RBC) [Entitic mass] MCH [Entitic mass] by Automated count High 24.7-34.3 [facility] MCHC Auto (RBC) [Mass/Vol]Or dered By: Beti Ham on 07-31-2024 MCHC (RBC) [Mass/Vol] MCHC [Mass/volume] by Automated count 32.0-35.0 [facility] MCV Auto (RBC) [Entitic vol] Ordered By: Beti Ham on 07-31-2024 MCV (RBC) [Entitic vol] MCV [Entitic vol ume] by Automated count High 80-100 [facility] Monocytes Auto (Bld) [#/Vol] Ordered By: Beti Ham on 07-31-2024 Monocytes (Bld) [#/Vol] Automated blood monocyte count 0.0-0.8 [facility] Monocytes/100 WBC Auto (Bld) Ordered By: Beti Ham on 07-31-2024 Monocytes/100 WBC (Bld) Automated monocyte % . [facility] Neutrophils Auto (Bld) [#/Vo l]Ordered By: Beti Ham on 07-31-2024 Neutrophils (Bld) [#/Vol] Neutrophils [#/volume] in Blood by Automated count 1.8-7.7 [facility] Neutrophils/100 WBC Auto (Bl d)Ordered By: Beti Ham on 07-31-2024 Neutrophils/100 WBC (Bld) Automated neutrophil % . [facility] No Panel InformationOrdered By: Beti Ham on 07-31-2024 Estimated GFR (CKD-EPI) 38.332 mL/Min [facility] Creatinine Clearance (Chem N/A [facility] Nucleated erythrocytes [Pres ence] in Blood by Automated countOrdered By: Beti Ham on 07-31-2024 Nucleated RBC Auto Ql (Bld) Nucleated erythrocytes [Presence] in Blood by Automated count 0-0.5 [facility] Platelet mean volume Auto (B ld) [Entitic vol]Ordered By: Beti Ham on 07-31-2024 Platelet mean volume (Bld) [Entitic vol] Platelet mean volume [Entitic volume] in Blood by Automated count 6.3-10.7 [facility] Platelets Auto (Bld) [#/Vol] Ordered By: Beti Ham on 07-31-2024 Platelets (Bld) [#/Vol] Platelets [#/vol ume] in Blood by Automated count 150-450 [facility] Potassium [Moles/volume] in Serum or PlasmaOrdered By: Beti Ham on 07-31-2024 Potassium [Moles/Vol] Potassium [Moles/volume] in Serum or Plasma 3.5-5.1 [facility] Protein [Mass/volume] in Ser um or PlasmaOrdered By: Beti Ham on 07-31-2024 Protein [Mass/Vol] Protein [Mass/volume] in Serum or Plasma 6.4-8.9 [facility] RBC Auto (Bld) [#/Vol]Ordere d By: Beti Ham on 07-31-2024 RBC (Bld) [#/Vol] Erythrocytes [#/volume] in Blood by Automated count Low 3.60-5.00 [facility] RPR w/rfx to Quant TP Abson 07-31-2024 RPR, Rfx Quant RPR Non-Reactive Normal Non Reactive [facility] Comment on above: Result Comment: Perf ormed at: - [facility] [address] [id number] Pickling Operator: Iain Siegel PhD, Phone: [phone] PERFORMED BY: [place] [id number] PATHOLOGIST BOX FEEDER SARAHI JUAREZ M.D. Performed By: #### T 4F, CK, CRP, TSH3, ESR, CBC, CMP #### [address] #### HBCAB, JUSTINA, HBSAG, ALDOLASE, HCV RX PCR, HBSAB, THYGLOB AB, CHROMATIN, C4, C3, CH50, RPR W RFX, TPO, KERRI #### [facility] , Serum or plasma albumin/glob ulin mass ratioOrdered By: Beti Ham on 07-31-2024 Albumin/Globulin [Mass ratio] Serum or plasma albumin/globulin mass ratio [facility] Serum or plasma anion gap de terminationOrdered By: Beti Ham on 07-31-2024 Anion gap [Moles/Vol] Serum or plasma anion gap determination 6.0-15.0 [facility] Sodium [Moles/volume] in Ser um or PlasmaOrdered By: Beti Ham on 07-31-2024 Sodium [Moles/Vol] Sodium [Moles/volume] in Serum or Plasma 136-145 [facility] Thyroid Peroxidase Antibodie son 07-31-2024 Thyroid Peroxidase Antibodies 12 [IU]/mL Normal 0-34 [facility] Comment on above: Result Comment: Perf ormed at: [facility] [address] [id number] Pickling Operator: Iain Siegel PhD, Phone: [phone] Performed By: #### T 4F, CK, CRP, TSH3, ESR, CBC, CMP #### [place] [address] [place] #### HBCAB, JUSTINA, HBSAG, ALDOLASE, HCV RX PCR, HBSAB, THYGLOB AB, CHROMATIN, C4, C3, CH50, RPR W RFX, TPO, KERRI #### [facility] , Thyroid Stimulating Hormoneo n 07-31-2024 TSH Qn 2.45 m[IU]/L Normal 0.45-5.33 [facility] Comment on above: Result Comment: PERF ORMED BY: [place] [address] PATHOLOGIST BOX FEEDER SARAHI JUAREZ M.D. Performed By: #### T 4F, CK, CRP, TSH3, ESR, CBC, CMP #### [place] [address] [place] #### HBCAB, JUSTINA, HBSAG, ALDOLASE, HCV RX PCR, HBSAB, THYGLOB AB, CHROMATIN, C4, C3, CH50, RPR W RFX, TPO, KERRI #### [facility] , Thyrotropin [Units/volume] i n Serum or PlasmaOrdered By: Beti Ham on 07-31-2024 TSH Qn Thyrotropin [Units/volume] in Serum or Plasma 0.45-5.33 [facility] Thyroxine (T4) free [Mass/vo lume] in Serum or PlasmaOrdered By: Beti Ham on 07-31-2024 Free T4 [Mass/Vol] Thyroxine (T4) free [Mass/volume] in Serum or Plasma 0.61-1.12 [facility] Urea nitrogen [Mass/volume] in Serum or PlasmaOrdered By: Beti Jitendra on 07-31-2024 Urea nitrogen [Mass/Vol] Urea nitrogen [Mass/volume] in Serum or Plasma 01-03 [facility] WBC Auto (Bld) [#/Vol]Ordere d By: Beti Jitendra on 07-31-2024 WBC (Bld) [#/Vol] Leukocytes [#/volume] in Blood by Automated count 3.8-11.6 [facility] Office Visiton 05-21-2024 Follow-up visit [id number] Linda Nascimento 1950 F Date Provider Department Center 05/21/2024 ENOCH RAMIREZ JUAN [facility] Family History Problem Relation Age of Onset Lung cancer Mother Stroke Father Family Status - Relation Status Age at Mother Father Level of Service:32571 [place] OFFICE/OUTPATIENT ESTABLISHED LOW MDM 20 MIN Normal [facility] Herpes Simplex Virus By PCRo n 05-07-2024 HSV 1 Subtype by PCR Not detected Normal [facility] Comment on above: Order Comment: CALL doctor LB474 tel. [phone], FAX [phone] CALL doctor LB474 tel. [phone], FAX [phone] Result Comment: The specimen submitted for testing did not meet ARUP submission guidelines. Testing was performed on a specimen that did not meet validated specimen type requirements. Performance characteristics of this assay may be affected. Interpret results with caution. Please refer to the [employer] [employer] [facility] Test Directory for information on specimen acceptability: [email or web address]/testing Performed By: #### A 0095 #### [facility] [address] [place] [address] HSV 2 Subtype by PCR Not detected Normal [facility] Comment on above: Order Comment: CALL doctor LB474 tel. [phone], FAX [phone] CALL doctor LB474 tel. [phone], FAX [phone] Result Comment: The specimen submitted for testing did not meet ARUP submission guidelines. Testing was performed on a specimen that did not meet validated specimen type requirements. Performance characteristics of this assay may be affected. Interpret results with caution. Please refer to the [employer] [employer] [facility] Test Directory for information on specimen acceptability: [email or web address]/testing INTERPRETIVE INFORMATION: HSV-1 and HSV-2 Subtype by PCR A negative result does not rule out the presence of PCR inhibitors in the patient specimen or test-specific nucleic acid in concentrations below the level of detection by this test. This test was developed and its performance characteristics determined by [employer]. It has not been cleared or approved by the [place] Food and Drug Administration. This test was performed in a CLIA certified laboratory and is intended for clinical purposes. Performed By: [employer] [address] [place] [address] Accountant Auditor: Rodrigo Milner MD, PhD [facility] Number: [id number] Performed By: #### A 0095 #### [facility] [address] [place] [address] Rejection Notificationon Reason see below [facility] Comment on above: Order Comment: CALL doctor LB474 tel. [phone], FAX [phone] CALL doctor LB474 tel. [phone], FAX [phone] Result Comment: Unab le to perform testing; specimen quantity not sufficient. To perform testing the specimen will need to be recollected. QNS Performed By: #### R EJEC #### [facility] [address] [place] [address] Rejected Test [id number] [facility] Comment on above: Order Comment: CALL doctor LB474 tel. [phone], FAX [phone] CALL doctor LB474 tel. [phone], FAX [phone] Performed By: #### R EJEC #### [facility] [address] [place] [address] [facility] Miscellaneous test 1on 05-03-2024 [facility]pt [id number] [facility] Comment on above: Order Comment: CALL doctor LB474 tel. [phone], FAX [phone] Performed By: #### 9 [id number] #### [facility] [address] [place] [id number] Culture, Wound Aerobic, Anae robicon 05-03-2024 Culture, Wound Aerobic, Anaerobic ORDER#: [id number] ORDERED BY: MICHELLE QUINTERO SOURCE: Face Left eye ocular fluid COLLECTED: 05/03/24 07:26 ANTIBIOTICS AT MANJINDER.: RECEIVED : 05/03/24 07:39 CALL doctor LB474 tel. [phone], FAX [phone] Culture, Wound Aerobic, Anaerobic FINAL 05/08/24 08:22 Direct Exam: NO NEUTROPHILS SEEN Direct Exam: NO ORGANISMS SEEN Cult,Aerobe/Anaerobe : NO GROWTH 5 DAYS Performed at [address] [address] ([phone] [facility] Comment on above: Performed By: #### I CWAN #### [facility] [address] [place] [address] Herpes Simplex Virus By PCRo n 05-03-2024 Herpes Simplex Virus Subtype Source eye Normal [facility] Comment on above: Order Comment: CALL doctor LB474 tel. [phone], FAX [phone] CALL doctor LB474 tel. [phone], FAX [phone] Result Comment: ocul ar fld Performed By: #### A 0095 #### [facility] [address] [place] [address] CBC AUTO DIFFon 10-14-2022 BASO # 0.1 103/ul Normal 0.0-0.1 [facility] Comment on above: Performed By: #### C BC ####[facility] [address] [place] [id number]. Slick Broderick Basophils/100 WBC (Bld) 0.6 % Normal 0.2-2.0 [facility] Comment on above: Performed By: #### C BC ####[facility] Cl[address]wfjvmpb[address] [place] [id number]. Slick Broderick EO # 0.4 103/ul Normal 0.0-0.7 [facility] Comment on above: Performed By: #### C BC ####[facility] [address]ub[address]xnyi[address] [place] [id number]. Slick Broderick Eosinophils/100 WBC (Bld) 3.9 % Normal 0.9-7.0 [facility] Comment on above: Performed By: #### C BC ####[facility] Rlgeurotrl[address] [place] [id number]. Slick Broderick Erythrocyte distribution width (RBC) [Ratio] 13.2 % Normal 11.0-15.0 [facility] Comment on above: Performed By: #### C BC ####[facility] M[address]ibozrkj[address] [place] [id number]. Slick Broderick Hematocrit (Bld) [Volume fraction] 32.4 % Critically low 36.0-48.0 [facility] Comment on above: Performed By: #### C BC ####[facility] Xvewo[address] [place], [place] [address]Dr. Slick Broderick Hemoglobin (Bld) [Mass/Vol] 10.4 g/dL Critically low 12.0-16.0 [facility] Comment on above: Performed By: #### C BC ####[facility] [address] [place], [place] [address]Dr. Slick Broderick IG # 0.19 10e3/ul Critically high 0.00-0.03 [facility] Comment on above: Performed By: #### C BC ####[facility] [address] [place] [address]Dr. Slick Broderick IG % 2.1 % Critically high 0.0-0.5 [facility] Comment on above: Performed By: #### C BC ####[facility] Hzumozxvps080[address] [place] [id number]. Slick Broderick LYMPH # 1.0 103/ul Critically low 1.2-3.8 [facility] Comment on above: Performed By: #### C BC ####[facility] B[address]pr[address]vhfsj[address] [place] [id number]. Slick Broderick Lymphocytes/100 WBC (Bld) 11.4 % Critically low 20.5-60.0 [facility] Comment on above: Performed By: #### C BC ####[facility] [address] [place] [address]DrEmma Broderick MANUAL DIFF REQ NO Normal [facility] Comment on above: Performed By: #### C BC ####[facility] [address]cod[address] [place] [address]Dr. Slick Broderick MCH (RBC) [Entitic mass] 32.0 pg Normal 26.7-34.0 [facility] Comment on above: Performed By: #### C BC ####[facility] J[address]vbmvngr33[address] [place] [address]Dr. Slick Broderick MCHC (RBC) [Mass/Vol] 32.1 g/dL Normal 29.9-35.2 [facility] Comment on above: Performed By: #### C BC ####[facility] [address] [place], [place] [address]DrEmma Broderick MCV (RBC) [Entitic vol] 99.7 fL Critically high 81.0-99 .0 [facility] Comment on above: Performed By: #### C BC ####[facility] [address] [place], [place] [address]DrEmma Broderick MONO # 1.0 103/ul Critically high 0.3-0.8 [facility] Comment on above: Performed By: #### C BC ####[facility] I[address]we[address] [place], [place] [address]DrEmma Broderick Monocytes/100 WBC (Bld) 10.8 % Normal 1.7-12.0 [facility] Comment on above: Performed By: #### C BC ####[facility] [address] [place], [place] [address]DrEmma Broderick NEUT # 6.4 103/ul Normal 1.4-6.5 [facility] Comment on above: Performed By: #### C BC ####[facility] T[address] [place], [place] [address]DrEmma Broderick Neutrophils/100 WBC (Bld) 71.2 % Normal 43.0-75.0 [facility] Comment on above: Performed By: #### C BC ####[facility] [address]pdqgf[address] [place] [address]Dr. Slick Broderick Platelet mean volume (Bld) [Entitic vol] 9.8 fL Normal 9.5-13.5 [facility] Comment on above: Performed By: #### C BC ####[facility] [address] [place] [address]Dr. Slick Broderick PLT 174 103/ul Normal 150-450 [facility] Comment on above: Performed By: #### C BC ####[facility] [address]rs[address]ubuww[address] [place] [address]Dr. Slick Broderick RBC 3.25 106/ul Critically low 4.20-5.40 [facility] Comment on above: Performed By: #### C BC ####[facility] Xvktxeeauo48[address] [place] [address]Dr. Slick Broderick WBC 8.9 103/ul Normal 4.0-11.0 [facility] Comment on above: Performed By: #### C BC ####[facility] M[address]rodmgid44[address] [place] [address]Dr. Slick Broderick CRPon 10-14-2022 CRP 0.5 mg/dL Normal <=1.0 [facility] Comment on above: Performed By: #### C RP, BMP ####[facility] Szv[address]gsj[address] [place], [place] [address]Dr. Slick Broderick D-DIMERon 10-14-2022 D-DIMER 0.86 mg/L FEU Critically high <=0.59 [facility] Comment on above: Performed By: #### D DIM ####[facility] [address] [place], [place] [address]Dr. Slick Broderick D-DIMER COMMENTS SEE BELOW Normal [facility] Comment on above: Result Comment: Incr eases [...] By: #### D DIM ####[facility] Tr[address]sschbb[address] [place] [address]Dr. Slick Broderick PROF CHEM 8 (BAS METB)on Anion gap [Moles/Vol] 10.1 mmol/L Normal [facility] Comment on above: Performed By: #### C RP, BMP ####[facility] Qmjxammqei[address] [place] [address]Dr. Slick Broderick Calcium [Mass/Vol] 9.3 mg/dL Normal 8.5-10.1 [facility] Comment on above: Performed By: #### C RP, BMP ####[facility] [address]ir[address] [place], [place] [address]Dr. Slick Broderick Chloride [Moles/Vol] 98 mmol/L Normal 98-107 [facility] Comment on above: Performed By: #### C RP, BMP ####[facility] Q[address] [place], [place] [address]Dr. Slick Broderick CO2 [Moles/Vol] 30.3 mmol/L Normal 21.0-32.0 [facility] Comment on above: Performed By: #### C RP, BMP ####[facility] Nrxrke[address]uvv[address] [place], [place] [address]Dr. Slick Broderick Creatinine [Mass/Vol] 2.15 mg/dL Critically high 0.55-1.02 [facility] Comment on above: Performed By: #### C RP, BMP ####[facility] U[address]rx[address] [place], [place] [address]Dr. Slick Broderick EGFR-AF OMANI 27 mL/min/1.73m2 Critically low >=60 [facility] Comment on above: Performed By: #### C RP, BMP ####[facility] Qqlyqscioq[address] [place], [place] [address]Dr. Slick Broderick EGFR-NON AF OMANI 22 mL/min/1.73m2 Critically low >=60 [facility] Comment on above: Performed By: #### C RP, BMP ####[facility] [address]ndkt7[address] [place] [address]Dr. Slick Broderick Glucose [Mass/Vol] 116 mg/dL Critically high 74-[address] [facility] Comment on above: Performed By: #### C RP, BMP ####[facility] Uviiayozat[address] [place] [address]Dr. Slick Broderick Potassium [Moles/Vol] 4.4 mmol/L Normal 3.5-5.1 [facility] Comment on above: Performed By: #### C RP, BMP ####[facility] [address]rf[address] [place], [place] [address]Dr. Slick Broderick Sodium [Moles/Vol] 134 mmol/L Critically low 136-145 [facility] Comment on above: Performed By: #### C RP, BMP ####[facility] B[address]bnnbci[address] [place], [place] [address]Dr. Slick Broderick Urea nitrogen [Mass/Vol] 33.0 mg/dL Critically high 7.0-18.0 [facility] Comment on above: Performed By: #### C RP, BMP ####[facility] E[address]uzvye[address] [place], [place] [address]Dr. Slick Broderick Urea nitrogen/Creatinine [Mass ratio] 15.3 mg/mg Normal [facility] Comment on above: Performed By: #### C RP, BMP ####[facility] [address] [place], [place] [address]Dr. Slick Broderick US JENNY DOP LEG LTon 10-15-19 23 US JENNY DOP LEG LT Normal [facility] XR FEMUR LTon 10-14-2022 XR FEMUR LT Normal [facility] ECHOCARDIO M/2D COMPLETEon 0 09-14-2022 ECHOCARDIO M/2D COMPLETE Normal [facility] PRBC LEUKOREDUCEDon 06-09-20 22 PRBC LEUKOREDUCED Normal [facility] Comment on above: Performed By: #### P RBC ####[facility] [address] [place], [place] [address]Dr. Slick Broderick BNPon 04-23-2022 Natriuretic peptide B (Bld) [Mass/Vol] 82576.0 pg/mL Critically high <=900.0 [facility] Comment on above: Performed By: #### C MP, CMADM, BNP ####[facility] [address]wb[address] [place] [id number]. Slick Broderick CARDIAC REYMUNDO ADMITon 022 CK [Catalytic activity/Vol] 121 U/L Normal 26-[address] [facility] Comment on above: Performed By: #### C MP, CMADM, BNP ####[facility] R[address]btkkxiqt23[address] [place] [address]Dr. Slick Broderick CK.MB [Mass/Vol] 5.67 ng/mL Critically high <=3.[address] [facility] Comment on above: Performed By: #### C MP, CMADM, BNP ####[facility] V[address]akiwvpi18[address] [place] [address]Dr. Slick [place] HSTROP 3667.9 pg/mL Critically high 4.0-51.[address] [facility] Comment on above: Result Comment: CUT- OFF POINTS HAVE BEEN ESTABLISHED BASED ON THE FOURTH UNIVERSAL DEFINITIONS OF MYOCARDIALINFARCTION. THE UPPER REFERENCE LIMIT (URL) OF TROPONIN, DEFINED THE 99TH PERCENTILE OFcTnI DISTRIBUTION IN A REFERENCE POPULATION, HAS BEEN CONFIRMED THE DECISION THRESHOLDFOR HI DIAGNOSIS. Performed By: #### C MP, CMADM, BNP ####[facility] Qwoqdwjnmo8[address] [place] [address]Dr. Slick Broderick NEHEMIAH 225 ng/mL Critically high 9-82 [facility] Comment on above: Performed By: #### C MP, CMADM, BNP ####[facility] Medhcnhotn7[address] [place] [address]Dr. Slick Broderick CBC AUTO DIFFon 04-23-2022 BASO # 0.0 103/ul Normal 0.0-0.1 [facility] Comment on above: Performed By: #### C BC ####[facility] Q[address]qiywxaz78[address] [place] [address]Dr. Slick Broderick Basophils/100 WBC (Bld) 0.3 % Normal 0.2-2.0 [facility] Comment on above: Performed By: #### C BC ####[facility] [address] [place], [place] [address]DrEmma Broderick EO # 0.0 103/ul Normal 0.0-0.7 [facility] Comment on above: Performed By: #### C BC ####[facility] I[address]sc[address] [place], [place] [address]DrEmma Broderick Eosinophils/100 WBC (Bld) 0.3 % Critically low 0.9-7.0 [facility] Comment on above: Performed By: #### C BC ####[facility] [address] [place], [place] [address]DrEmma Broderick Erythrocyte distribution width (RBC) [Ratio] 14.0 % Normal 11.0-15.0 [facility] Comment on above: Performed By: #### C BC ####[facility] Yuwgkcczkh[address] [place], [place] [address]Dr. Slick Broderick Hematocrit (Bld) [Volume fraction] 21.9 % Critically low 36.0-48.0 [facility] Comment on above: Performed By: #### C BC ####[facility] [address] [place], [place] [address]DrEmma Broderick Hemoglobin (Bld) [Mass/Vol] 7.1 g/dL Critically low 12.0-16.0 [facility] Comment on above: Performed By: #### C BC ####[facility] X[address]tr[address] [place], [place] [address]DrEmma Broderick IG # 0.04 10e3/ul Critically high 0.00-0.03 [facility] Comment on above: Performed By: #### C BC ####[facility] [address]us[address]znj[address] [place], [place] [address]DrEmma Broderick IG % 0.4 % Normal 0.0-0.5 [facility] Comment on above: Performed By: #### C BC ####[facility] [address]zwzv[address] [place], [place] [address]DrEmma Broderick LYMPH # 0.8 103/ul Critically low 1.2-3.8 [facility] Comment on above: Performed By: #### C BC ####[facility] X[address]ugvtzn3241 [place] [id number] Slick [place] Lymphocytes/100 WBC (Bld) 7.7 % Critically low 20.5-60.0 [facility] Comment on above: Performed By: #### C BC ####[facility] [address]zuvq4[address] [place] [address]DrEmma Meaganwendie Broderick MANUAL DIFF REQ NO Normal [facility] Comment on above: Performed By: #### C BC ####[facility] Tgselmtpce8761 [place] [address]DrEmma Slick [place] MCH (RBC) [Entitic mass] 29.3 pg Normal 26.7-34.0 [facility] Comment on above: Performed By: #### C BC ####[facility] [address]wc[address] [place], [place] [address]DrEmma Slick [place] MCHC (RBC) [Mass/Vol] 32.4 g/dL Normal 29.9-35.2 [facility] Comment on above: Performed By: #### C BC ####[facility] [address]awj[address] [place], [place] [address]DrEmma Broderick MCV (RBC) [Entitic vol] 90.5 fL Normal 81.0-99.0 [facility] Comment on above: Performed By: #### C BC ####[facility] L[address]sfptcmrr8470 [place] [address]DrEmma Rhodeswendie Davie MONO # 1.0 103/ul Critically high 0.3-0.8 [facility] Comment on above: Performed By: #### C BC ####[facility] Ts[address]lowynf[address] [place], [place] [address]DrEmma Broderick Monocytes/100 WBC (Bld) 9.6 % Normal 1.7-12.0 [facility] Comment on above: Performed By: #### C BC ####[facility] Rvehvacsyo[address] [place], [place] [address]Dr. Slick Broderick NEUT # 8.6 103/ul Critically high 1.4-6.5 [facility] Comment on above: Performed By: #### C BC ####[facility] Ohsonppjwn1419 [place] [address]Dr. Slick Broderick Neutrophils/100 WBC (Bld) 81.7 % Critically high 43.0-75.0 [facility] Comment on above: Performed By: #### C BC ####[facility] Qdymmsnvce7126 [place] [address]Dr. Slick Broderick Platelet mean volume (Bld) [Entitic vol] 10.0 fL Normal 9.5-13.[address] [facility] Comment on above: Performed By: #### C BC ####[facility] Gkojsvncyv25[address] [place] [address]Dr. Slick Broderick PLT 195 103/ul Normal 150-[address] [facility] Comment on above: Performed By: #### C BC ####[facility] [address]yrqetqx[address] [place], [place] [address]Dr. Slick Broderick RBC 2.42 106/ul Critically low 4.20-5.40 [facility] Comment on above: Performed By: #### C BC ####[facility] Fxomjswzdm7[address] [place], [place] [address]Dr. Slick Broderick WBC 10.5 103/ul Normal 4.0-11.[address] [facility] Comment on above: Performed By: #### C BC ####[facility] Zdwhcuutli[address] [place], [place] [address]Dr. Slick Broderick CT HEAD WO CONon 04-23-2022 CT HEAD WO CON Normal [facility] CULTURE BLOODon 04-23-2022 Microscopic examination of blood, culture Culture Observations: NO GROWTH AT [address] [facility] Comment on above: Performed By: #### B LDCX2 ####[facility] L[address]rdusgjg79[address] [place] [address]Dr. Slick Broderick Microscopic examination of blood, culture Culture Observations: NO GROWTH AT [address] [facility] Comment on above: Performed By: #### B LDCX1 ####[facility] J[address]uffveel36[address] [place] [address]Dr. Slick [place]ie Covid-19 PCR (CVDTB)on 04-12 SARS-CoV-2 [...] for this test is supported by the Pediatric Sports Medicine Specialist of Health and Human Service's declaration that [...] By: #### C VDTBH ####[facility] Vz[address]xdvvi[address] [place], [place] [address]Dr. Slick Davie LACTATE/LACTIC ACIDon 2021 Lactate [Moles/Vol] 1.2 mmol/L Normal 0.4-1.9 [facility] Comment on above: Performed By: #### L ACT ####[facility] X[address]rvysm[address] [place], [place] [address]Dr. Slick Broderick PROF 14(COMP METB)on 022 Albumin [Mass/Vol] 2.9 g/dL Critically low 3.4-5.0 [facility] Comment on above: Performed By: #### C MP, CMADM, BNP ####[facility] [address]vbfoi[address] [place], [place] [address]Dr. Slick Broderick Albumin/Globulin [Mass ratio] 0.9 {ratio} Normal [facility] Comment on above: Performed By: #### C MP, CMADM, BNP ####[facility] [address]uzpxjvfe[address] [place] [address]Dr. Slick Broderick ALP [Catalytic activity/Vol] 88 U/L Normal 46-116 [facility] Comment on above: Performed By: #### C MP, CMADM, BNP ####[facility] Okqkyfctwi48[address] [place] [address]Dr. Slick Broderick ALT [Catalytic activity/Vol] 22 U/L Normal 14-59 [facility] Comment on above: Performed By: #### C MP, CMADM, BNP ####[facility] P[address]vcjmsq5[address] [place] [address]Dr. Slick Broderick Anion gap [Moles/Vol] 14.0 mmol/L Normal [facility] Comment on above: Performed By: #### C MP, CMADM, BNP ####[facility] [address]zf[address] [place], [place] [address]Dr. Slick Broderick AST [Catalytic activity/Vol] 26 U/L Normal 15-37 [facility] Comment on above: Performed By: #### C MP, CMADM, BNP ####[facility] Rev[address]wsj[address] [place], [place] [address]Dr. Slick Broderick Bilirubin [Mass/Vol] 0.5 mg/dL Normal 0.2-1.0 [facility] Comment on above: Performed By: #### C MP, CMADM, BNP ####[facility] Gifdxmibmn038[address] [place] [address]Dr. Slick Broderick Calcium [Mass/Vol] 9.7 mg/dL Normal 8.5-10.1 [facility] Comment on above: Performed By: #### C MP, CMADM, BNP ####[facility] [address]vazc[address]lv[address] [place], [place] [address]Dr. Slick Broderick Chloride [Moles/Vol] 105 mmol/L Normal 98-107 [facility] Comment on above: Performed By: #### C MP, CMADM, BNP ####[facility] [address]swxdljt36[address] [place] [address]Dr. Slick Broderick CO2 [Moles/Vol] 27.0 mmol/L Normal 21.0-32.0 [facility] Comment on above: Performed By: #### C MP, CMADM, BNP ####[facility] [address]zxubsfi[address] [place] [address]Dr. Slick Broderick Creatinine [Mass/Vol] 1.57 mg/dL Critically high 0.55-1.02 [facility] Comment on above: Performed By: #### C MP, CMADM, BNP ####[facility] Ufvexghrxw[address] [place] [address]Dr. Slick Broderick EGFR-AF OMANI 39 mL/min/1.73m2 Critically low >=60 [facility] Comment on above: Performed By: #### C MP, CMADM, BNP ####[facility] [address]ut[address]wcp[address] [place], [place] [address]Dr. Slick Broderick EGFR-NON AF OMANI 32 mL/min/1.73m2 Critically low >=60 [facility] Comment on above: Performed By: #### C MP, CMADM, BNP ####[facility] [address]psxcsjfr[address] [place], [place] [address]Dr. Slick Broderick Globulin (S) [Mass/Vol] 3.2 g/dL Normal [facility] Comment on above: Performed By: #### C MP, CMADM, BNP ####[facility] [address]zxbmrrkhu[address] [place] [address]Dr. Slick Broderick Glucose [Mass/Vol] 128 mg/dL Critically high 74-106 [facility] Comment on above: Performed By: #### C MP, CMADM, BNP ####[facility] Ubfcevwnsb40[address] [place] [address]Dr. Slick Broderick Potassium [Moles/Vol] 4.0 mmol/L Normal 3.5-5.1 [facility] Comment on above: Performed By: #### C MP, CMADM, BNP ####[facility] Hebhssinla[address] [place], [place] [address]Dr. Slick Broderick Protein [Mass/Vol] 6.1 g/dL Critically low 6.4-8.2 [facility] Comment on above: Performed By: #### C MP, CMADM, BNP ####[facility] [address]jbjultpbr[address] [place] [address]Dr. Slick Broderick Sodium [Moles/Vol] 142 mmol/L Normal 136-145 [facility] Comment on above: Performed By: #### C MP, CMADM, BNP ####[facility] Lyuphwdqwc[address] [place], [place] [address]Dr. Slick Broderick Urea nitrogen [Mass/Vol] 34.0 mg/dL Critically high 7.0-18.0 [facility] Comment on above: Performed By: #### C MP, CMADM, BNP ####[facility] Bbanlecdtl[address] [place], [place] [address]Dr. Slick Broderick Urea nitrogen/Creatinine [Mass ratio] 21.7 mg/mg Normal [facility] Comment on above: Performed By: #### C MP, CMADM, BNP ####[facility] Kxlrmuaddp[address] [place], [place] [address]Dr. Slick Broderick PROTIMEon 04-23-2022 INR Coag (PPP) [Relative time] 1.10 {INR} Normal [facility] Comment on above: Performed By: #### P T, PTT ####[facility] Aslwosozvq[address] [place], [place] [address]Dr. Slick Broderick INR GUIDELINES SEE BELOW Normal [facility] Comment on above: Result Comment: EDMUND RED INR: 2.0 - 3.0 CONDITIONS NOT LISTED BELOW 2.5 - 3.5 FOR PROSTHETIC HEART VALVE REPLACEMENT 2.5 - 3.5 RECURRENT THROMBOSIS Performed By: #### P T, PTT ####[facility] Lpmkhqlzgm9[address] [place], [place] [address]Dr. Slick Broderick PT Coag (PPP) [Time] 11.8 s Critically high 9.0-11.6 [facility] Comment on above: Performed By: #### P T, PTT ####[facility] Qqtboagure[address] [place], [place] [address]Dr. Slick Broderick PTTon 04-23-2022 aPTT Coag (Bld) [Time] 27.7 s Normal 22.3-36.[address] [facility] Comment on above: Performed By: #### P T, PTT ####[facility] Zwelxjijaj[address] [place], [place] [address]Dr. Slick Broderick TYPE AND SCREENon 04-23-2022 TYPE AND SCREEN Negative Normal [facility] Comment on above: Performed By: #### T NS ####[facility] Tabykwmgab[address] [place], [place] [address]Dr. Slick Broderick XR CHEST 1 Von 04-23-2022 XR CHEST 1 V Normal [facility] CBC AUTO DIFFon 04-22-2022 BASO # 0.0 103/ul Normal 0.0-0.1 [facility] Comment on above: Performed By: #### C BC ####[facility] Zrkgxctkpu[address] [place], [place] [address]Dr. Slick Broderick Basophils/100 WBC (Bld) 0.3 % Normal 0.2-2.0 [facility] Comment on above: Performed By: #### C BC ####[facility] Hxnayzdsjm34[address] [place], [place] [address]Dr. Slick Broderick EO # 0.1 103/ul Normal 0.0-0.7 [facility] Comment on above: Performed By: #### C BC ####[facility] Ousvnnkrxt95[address] [place], [place] [address]Dr. Slick Dav[place] Eosinophils/100 WBC (Bld) 1.4 % Normal 0.9-7.[address] [facility] Comment on above: Performed By: #### C BC ####[facility] Kzaxodieiv68[address] [place], [place] [address]Dr. Slick Broderick Erythrocyte distribution width (RBC) [Ratio] 13.8 % Normal 11.0-15.0 [facility] Comment on above: Performed By: #### C BC ####[facility] Oprwfnhjmz[address] [place], [place] [address]Dr. Slick Davie Hematocrit (Bld) [Volume fraction] 27.4 % Critically low 36.0-48.0 [facility] Comment on above: Performed By: #### C BC ####[facility] Tdqvlrldvk92[address] [place] [id number]. Slick Broderick Hemoglobin (Bld) [Mass/Vol] 8.8 g/dL Critically low 12.0-16.[address] [facility] Comment on above: Performed By: #### C BC ####[facility] Mxdrufpshb4367 [place] [id number]. Slick Broderick IG # 0.04 10e3/ul Critically high 0.00-0.03 [facility] Comment on above: Performed By: #### C BC ####[facility] Majrukxzbx5304 [place] [id number]. Slick Broderick IG % 0.6 % Critically high 0.0-0.5 [facility] Comment on above: Performed By: #### C BC ####[facility] Ignaktwgce7[address] [place], [place] [address]Dr. Slick Broderick LYMPH # 0.7 103/ul Critically low 1.2-3.8 [facility] Comment on above: Performed By: #### C BC ####[facility] Mvaisliejr18[address] [place] [address]Dr. Slick Broderick Lymphocytes/100 WBC (Bld) 9.8 % Critically low 20.5-60.0 [facility] Comment on above: Performed By: #### C BC ####[facility] Txtefnlifo5[address] [place] [address]Dr. Slick Broderick MANUAL DIFF REQ NO Normal [facility] Comment on above: Performed By: #### C BC ####[facility] [address]tboskwl[address] [place], [place] [id number]. Slick Broderick MCH (RBC) [Entitic mass] 28.9 pg Normal 26.7-34.[address] [facility] Comment on above: Performed By: #### C BC ####[facility] Sofmzmnxcd78[address] [place], [place] [address]Dr. Slick Broderick MCHC (RBC) [Mass/Vol] 32.1 g/dL Normal 29.9-35.[address] [facility] Comment on above: Performed By: #### C BC ####[facility] [address]ynpjuenh[address] [place] [id number]. Slick Broderick MCV (RBC) [Entitic vol] 90.1 fL Normal 81.0-99.0 [facility] Comment on above: Performed By: #### C BC ####[facility] Pnfaensbyz54[address] [place] [id number]. Slick Broderick MONO # 0.6 103/ul Normal 0.3-0.8 [facility] Comment on above: Performed By: #### C BC ####[facility] Zfmtwrxipr4014 [place] [address]Dr. Slick Broderick Monocytes/100 WBC (Bld) 7.6 % Normal 1.7-12.0 [facility] Comment on above: Performed By: #### C BC ####[facility] Jqlxqekduu[address] [place], [place] [address]Dr. Slick Broderick NEUT # 5.9 103/ul Normal 1.4-6.5 [facility] Comment on above: Performed By: #### C BC ####[facility] Vpcctnivvx[address] [place], [place] [address]Dr. Slick Broderick Neutrophils/100 WBC (Bld) 80.3 % Critically high 43.0-75.0 [facility] Comment on above: Performed By: #### C BC ####[facility] Ylkzuqdisc[address] [place], [place] [address]Dr. Slick Broderick Platelet mean volume (Bld) [Entitic vol] 9.5 fL Normal 9.5-13.5 [facility] Comment on above: Performed By: #### C BC ####[facility] X[address]ismjjxle[address] [place] [id number]. Slick Broderick PLT 204 103/ul Normal 150-[address] [facility] Comment on above: Performed By: #### C BC ####[facility] Iecuyqplbx9735 [place] [id number]. Slick [place] RBC 3.04 106/ul Critically low 4.20-5.40 [facility] Comment on above: Performed By: #### C BC ####[facility] Barzgfnrkv55[address] [place] [phone]. Slick Broderick WBC 7.3 103/ul Normal 4.0-11.0 [facility] Comment on above: Performed By: #### C BC ####[facility] S[address]zsapevxp[address] [place], [place] [address]Ut. Slick Broderick BASO # 0.0 103/ul Normal 0.0-0.1 [facility] Comment on above: Performed By: #### C BC ####[facility] Xdwohlvpfb74[address] [place] [id number]. Slick Broderick Basophils/100 WBC (Bld) 0.5 % Normal 0.2-2.0 [facility] Comment on above: Performed By: #### C BC ####[facility] Ellnmtixpe[address] [place] [phone]. Slick Broderick EO # 0.6 103/ul Normal 0.0-0.7 [facility] Comment on above: Performed By: #### C BC ####[facility] Vaotbfizgt0297 [place] [phone]. Slick Broderick Eosinophils/100 WBC (Bld) 10.4 % Critically high 0.9-7.0 [facility] Comment on above: Performed By: #### C BC ####[facility] Wbafmmbjyi14[address] [place] [phone]. Slick Broderick Erythrocyte distribution width (RBC) [Ratio] 14.0 % Normal 11.0-15.0 [facility] Comment on above: Performed By: #### C BC ####[facility] Rcwvtuunuf4895 [place] [phone]. Slick Broderick Hematocrit (Bld) [Volume fraction] 26.5 % Critically low 36.0-48.0 [facility] Comment on above: Performed By: #### C BC ####[facility] Ioiwgqqyph[address] [place], [place] [id number]. Slick Broderick Hemoglobin (Bld) [Mass/Vol] 8.4 g/dL Critically low 12.0-16.0 [facility] Comment on above: Performed By: #### C BC ####[facility] Zbmqrdbdjv7[address] [place] [phone]. Slick Broderick IG # 0.02 10e3/ul Normal 0.00-0.03 [facility] Comment on above: Performed By: #### C BC ####[facility] Zcbwecjftc3446 [place] [phone]. Slick Davie IG % 0.4 % Normal 0.0-0.5 [facility] Comment on above: Performed By: #### C BC ####[facility] Tnyzbpzoov57[address] [place] [address]Dr. Slick Broderick LYMPH # 0.9 103/ul Critically low 1.2-3.8 [facility] Comment on above: Performed By: #### C BC ####[facility] Naxrzmttao0965 [place] [address]Dr. Slick Broderick Lymphocytes/100 WBC (Bld) 15.6 % Critically low 20.5-60.0 [facility] Comment on above: Performed By: #### C BC ####[facility] Ypqpqqthgv1788 [place] [address]Dr. Slick Broderick MANUAL DIFF REQ NO Normal [facility] Comment on above: Performed By: #### C BC ####[facility] Znpitoorgu7453 [place] [address]Dr. Slick Broderick MCH (RBC) [Entitic mass] 29.2 pg Normal 26.7-34.0 [facility] Comment on above: Performed By: #### C BC ####[facility] Rtlmhesibk[address] [place], [place] [address]Dr. Slick Davie MCHC (RBC) [Mass/Vol] 31.7 g/dL Normal 29.9-35.2 [facility] Comment on above: Performed By: #### C BC ####[facility] Qummerkcya0413 [place] [address]Dr. Slick Broderick MCV (RBC) [Entitic vol] 92.0 fL Normal 81.0-99.0 [facility] Comment on above: Performed By: #### C BC ####[facility] Fpotbbvcpu6501 [place] [id number]. Slikc Broderick MONO # 0.6 103/ul Normal 0.3-0.8 [facility] Comment on above: Performed By: #### C BC ####[facility] Ugoizunxil9597 [place] [phone]. Slick Broderick Monocytes/100 WBC (Bld) 10.1 % Normal 1.7-12.0 [facility] Comment on above: Performed By: #### C BC ####[facility] Agiuntfdiu9051 [place] [phone]. Slick Broderick NEUT # 3.5 103/ul Normal 1.4-6.5 [facility] Comment on above: Performed By: #### C BC ####[facility] Nsnzpnijwi9544 [place] [address]Dr. Slick Broderick Neutrophils/100 WBC (Bld) 63.0 % Normal 43.0-75.0 [facility] Comment on above: Performed By: #### C BC ####[facility] Uipndibekv8759 [place] [phone]. Slick Broderick Platelet mean volume (Bld) [Entitic vol] 10.0 fL Normal 9.5-13.5 [facility] Comment on above: Performed By: #### C BC ####[facility] Isvjsqddui1386 [place] [phone]. Slick Broderick PLT 198 103/ul Normal 150-[address] [facility] Comment on above: Performed By: #### C BC ####[facility] Xhedepucra4257 [place] [phone]. Slick Broderick RBC 2.88 106/ul Critically low 4.20-5.40 [facility] Comment on above: Performed By: #### C BC ####[facility] Eyrqxomyss8323 [place] [phone]. Slick Broderick WBC 5.6 103/ul Normal 4.0-11.[address] [facility] Comment on above: Performed By: #### C BC ####[facility] Nytennuzby[address] [place] [address]Dr. Slick Broderick CT HEAD WO CONon 04-22-2022 CT HEAD WO CON Normal [facility] POINT OF CARE GLUCOSEon 04-12 Glucose [Mass/Vol] 110 mg/dL Critically high 74-[address] [facility] Comment on above: Performed By: #### P OCGLUC ####[facility] [address]mnapyqpx[address] [place], [place] [address]Dr. Slick Broderick PROF 14(COMP METB)on 022 Albumin [Mass/Vol] 3.0 g/dL Critically low 3.4-5.0 [facility] Comment on above: Performed By: #### C MP ####[facility] Enecsqxoei[address] [place], [place] [address]Dr. Slick Broderick Albumin/Globulin [Mass ratio] 0.9 {ratio} Normal [facility] Comment on above: Performed By: #### C MP ####[facility] Ylyrxjcefb[address] [place], [place] [address]Dr. Slick Broderick ALP [Catalytic activity/Vol] 93 U/L Normal 46-116 [facility] Comment on above: Performed By: #### C MP ####[facility] [address]vbeaoqkqz[address] [place], [place] [address]Dr. Slick Broderick ALT [Catalytic activity/Vol] 22 U/L Normal 14-59 [facility] Comment on above: Performed By: #### C MP ####[facility] Mgprnpzayd95[address] [place], [place] [address]Dr. Slick Broderick Anion gap [Moles/Vol] 8.9 mmol/L Normal [facility] Comment on above: Performed By: #### C MP ####[facility] Bievwpoogo[address] [place], [place] [address]Dr. Slick Broderick AST [Catalytic activity/Vol] 18 U/L Normal 15-37 [facility] Comment on above: Performed By: #### C MP ####[facility] Alhnholoxv8[address] [place], [place] [address]Dr. Slick Broderick Bilirubin [Mass/Vol] 0.3 mg/dL Normal 0.2-1.0 [facility] Comment on above: Performed By: #### C MP ####[facility] Yguzhyviui2836 [place] [address]Dr. Slick Broderick Calcium [Mass/Vol] 9.6 mg/dL Normal 8.5-10.1 [facility] Comment on above: Performed By: #### C MP ####[facility] Jbulymdbbq092[address] [place], [place] [address]Dr. Slick Broderick Chloride [Moles/Vol] 104 mmol/L Normal 98-107 [facility] Comment on above: Performed By: #### C MP ####[facility] Qlpbnuhnaj87[address] [place], [place] [address]Dr. Slick Broderick CO2 [Moles/Vol] 30.8 mmol/L Normal 21.0-32.0 [facility] Comment on above: Performed By: #### C MP ####[facility] Ovujzouwnt[address] [place], [place] [address]Dr. Slick Broderick Creatinine [Mass/Vol] 1.73 mg/dL Critically high 0.55-1.02 [facility] Comment on above: Performed By: #### C MP ####[facility] Acmjoymabb9[address] [place], [place] [address]Dr. Slick Broderick EGFR-AF OMANI 35 mL/min/1.73m2 Critically low >=60 [facility] Comment on above: Performed By: #### C MP ####[facility] Uvhgwdgibs025[address] [place], [place] [address]Dr. Slick Broderick EGFR-NON AF OMANI 29 mL/min/1.73m2 Critically low >=60 [facility] Comment on above: Performed By: #### C MP ####[facility] Fmardodgli[address] [place], [place] [address]Dr. Slick Broderick Globulin (S) [Mass/Vol] 3.4 g/dL Normal T [facility] Comment on above: Performed By: #### C MP ####[facility] Rjmvjodwba[address] [place], [place] [address]Dr. Slick Broderick Glucose [Mass/Vol] 94 mg/dL Normal 74-106 [facility] Comment on above: Performed By: #### C MP ####[facility] Lqzmhefgkp3228 [place] [address]Dr. Slick Broderick Potassium [Moles/Vol] 4.7 mmol/L Normal 3.5-5.1 [facility] Comment on above: Performed By: #### C MP ####[facility] Vmpbffrugy[address] [place], [place] [address]Dr. Slick Broderick Protein [Mass/Vol] 6.4 g/dL Normal 6.4-8.2 [facility] Comment on above: Performed By: #### C MP ####[facility] Wrfyoonqnn[address] [place], [place] [address]Dr. Slick Broderick Sodium [Moles/Vol] 139 mmol/L Normal 136-145 [facility] Comment on above: Performed By: #### C MP ####[facility] Pcxbrqydvx06[address] [place], [place] [address]Dr. Slick Broderick Urea nitrogen [Mass/Vol] 46.0 mg/dL Critically high 7.0-18.0 [facility] Comment on above: Performed By: #### C MP ####[facility] [address]znomlctxp64[address] [place], [place] [address]Dr. Slick Broderick Urea nitrogen/Creatinine [Mass ratio] 26.6 mg/mg Normal [facility] Comment on above: Performed By: #### C MP ####[facility] Zmsiokyqae[address] [place], [place] [address]Dr. Slick Broderick PROF CHEM 8 (BAS METB)on Anion gap [Moles/Vol] 8.6 mmol/L Normal [facility] Comment on above: Performed By: #### B MP ####[facility] Hyllilvkwa[address] [place], [place] [address]Dr. Slick Broderick Calcium [Mass/Vol] 9.9 mg/dL Normal 8.5-10.1 [facility] Comment on above: Performed By: #### B MP ####[facility] Dqgchjibyk[address] [place], [place] [address]Dr. Meaganwendie Broderick Chloride [Moles/Vol] 103 mmol/L Normal 98-107 [facility] Comment on above: Performed By: #### B MP ####[facility] Rhgzibwtmk1880 [place] [address]Dr. Slick Broderick CO2 [Moles/Vol] 29.5 mmol/L Normal 21.0-32.0 [facility] Comment on above: Performed By: #### B MP ####[facility] Lepnnmfppv7832 [place] [address]Dr. Slick Broderick Creatinine [Mass/Vol] 1.62 mg/dL Critically high 0.55-1.02 [facility] Comment on above: Performed By: #### B MP ####[facility] Vjkcruefxz1443 [place] [address]Dr. Slick Broderick EGFR-AF OMANI 38 mL/min/1.73m2 Critically low >=60 [facility] Comment on above: Performed By: #### B MP ####[facility] Sybaxamsuv[address] [place], [place] [address]Dr. Slick [place] EGFR-NON AF OMANI 31 mL/min/1.73m2 Critically low >=60 [facility] Comment on above: Performed By: #### B MP ####[facility] Rcoslxzjoq2879 [place] [address]Dr. Slick Broderick Glucose [Mass/Vol] 125 mg/dL Critically high 74-106 [facility] Comment on above: Performed By: #### B MP ####[facility] Uurcpwitpp1701 [place] [address]Dr. Slick Broderick Potassium [Moles/Vol] 4.1 mmol/L Normal 3.5-5.[address] [facility] Comment on above: Performed By: #### B MP ####[facility] Aiwkhzktnq8681 [place] [address]Dr. Slick Broderick Sodium [Moles/Vol] 137 mmol/L Normal 136-145 [facility] Comment on above: Performed By: #### B MP ####[facility] Wwuiirsibs2016 [place] [address]Dr. Slick Broderick Urea nitrogen [Mass/Vol] 41.0 mg/dL Critically high 7.0-18.[address] [facility] Comment on above: Performed By: #### B MP ####[facility] Ohambmuxax1314 [place] [address]Dr. Slick Broderick Urea nitrogen/Creatinine [Mass ratio] 25.3 mg/mg Normal [facility] Comment on above: Performed By: #### B MP ####[facility] Ecnjljregh7822 [place] [address]Dr. Meaganwendie Davie PROTIMEon 04-22-2022 INR Coag (PPP) [Relative time] 1.08 {INR} Normal [facility] Comment on above: Performed By: #### P T, PTT ####[facility] Z[address]tdwvn[address] [place], [place] [address]Dr. Slick Broderick INR GUIDELINES SEE BELOW Normal [facility] Comment on above: Result Comment: EDMUND RED INR: 2.0 - 3.0 CONDITIONS NOT LISTED BELOW 2.5 - 3.5 FOR PROSTHETIC HEART VALVE REPLACEMENT 2.5 - 3.5 RECURRENT THROMBOSIS Performed By: #### P T, PTT ####[facility] Lpwbizzhtr40[address] [place], [place] [address]Dr. Slick Davie PT Coag (PPP) [Time] 11.6 s Normal 9.0-11.6 [facility] Comment on above: Performed By: #### P T, PTT ####[facility] Shuymbcpjc[address] [place], [place] [address]Dr. Meaganwendie Davie PTTon 04-22-2022 aPTT Coag (Bld) [Time] 30.7 s Normal 22.3-36.2 [facility] Comment on above: Performed By: #### P T, PTT ####[facility] Wnvchtamxc7[address] [place], [place] [address]Dr. Meaganwendie Broderick XR TIB_FIB RT 2Von 2 XR TIB_FIB RT 2V Normal [facility] CBC AUTO DIFFon 04-21-2022 BASO # 0.0 103/ul Normal 0.0-0.[address] [facility] Comment on above: Performed By: #### C BC ####[facility] Tsjecqbnjb4393 [place] [address]Dr. Slick Broderick Basophils/100 WBC (Bld) 0.3 % Normal 0.2-2.0 [facility] Comment on above: Performed By: #### C BC ####[facility] Nxhvuxrqgs[address] [place], [place] [address]Dr. Slick Broderick EO # 0.6 103/ul Normal 0.0-0.7 [facility] Comment on above: Performed By: #### C BC ####[facility] Jqrvqejyji47[address] [place], [place] [address]Dr. Slick Davie Eosinophils/100 WBC (Bld) 10.2 % Critically high 0.9-7.0 [facility] Comment on above: Performed By: #### C BC ####[facility] Robmcbuhhm[address] [place], [place] [address]Dr. Slick Broderick Erythrocyte distribution width (RBC) [Ratio] 14.2 % Normal 11.0-15.0 [facility] Comment on above: Performed By: #### C BC ####[facility] Myvjrhhrrt[address] [place], [place] [address]Dr. Slick Broderick Hematocrit (Bld) [Volume fraction] 25.5 % Critically low 36.0-48.0 [facility] Comment on above: Performed By: #### C BC ####[facility] X[address]drzdqrd[address] [place], [place] [address]Dr. Slick Broderick Hemoglobin (Bld) [Mass/Vol] 8.1 g/dL Critically low 12.0-16.0 [facility] Comment on above: Performed By: #### C BC ####[facility] [address]phzamih[address] [place], [place] [address]Dr. Slick Broderick IG # 0.02 10e3/ul Normal 0.00-0.03 [facility] Comment on above: Performed By: #### C BC ####[facility] [address]jgzbegkd[address] [place], [place] [address]Dr. Slick Broderick IG % 0.3 % Normal 0.0-0.5 [facility] Comment on above: Performed By: #### C BC ####[facility] Pmopxvzeoo27[address] [place] [id number]. Meaganwendie Davie LYMPH # 0.8 103/ul Critically low 1.2-3.8 [facility] Comment on above: Performed By: #### C BC ####[facility] Wbmixzauyq8606 [place] [id number]. Slick Broderick Lymphocytes/100 WBC (Bld) 13.2 % Critically low 20.5-60.0 [facility] Comment on above: Performed By: #### C BC ####[facility] Lzsdlizwgn7297 [place] [address]Dr. Slick Broderick MANUAL DIFF REQ NO Normal [facility] Comment on above: Performed By: #### C BC ####[facility] Iqqosrhhez6957 [place] [address]Dr. Slick Broderick MCH (RBC) [Entitic mass] 29.5 pg Normal 26.7-34.0 [facility] Comment on above: Performed By: #### C BC ####[facility] Kdnhxppkof0445 [place] [address]Dr. Meaganwendie Broderick MCHC (RBC) [Mass/Vol] 31.8 g/dL Normal 29.9-35.2 [facility] Comment on above: Performed By: #### C BC ####[facility] Alcexobefe8050 [place] [phone]. Slick Broderick MCV (RBC) [Entitic vol] 92.7 fL Normal 81.0-99.0 [facility] Comment on above: Performed By: #### C BC ####[facility] Z[address]uwxzqvm5988 [place] [phone]. Slick Broderick MONO # 0.6 103/ul Normal 0.3-0.8 [facility] Comment on above: Performed By: #### C BC ####[facility] Ilztsikmdc2973 [place] [phone]. Slick Broderick Monocytes/100 WBC (Bld) 9.2 % Normal 1.7-12.0 [facility] Comment on above: Performed By: #### C BC ####[facility] Tulylsdrqm1309 [place] [address]Dr. Slick Broderick NEUT # 4.1 103/ul Normal 1.4-6.5 [facility] Comment on above: Performed By: #### C BC ####[facility] Ssnliblmpm9603 [place] [phone]. Slick Broderick Neutrophils/100 WBC (Bld) 66.8 % Normal 43.0-75.0 [facility] Comment on above: Performed By: #### C BC ####[facility] Azaneysuds[address] [place] [address]Dr. Slick Broderick Platelet mean volume (Bld) [Entitic vol] 9.5 fL Normal 9.5-13.5 [facility] Comment on above: Performed By: #### C BC ####[facility] Inrhsfvrcb5[address] [place] [address]Dr. Slick Broderick PLT 189 103/ul Normal 150-450 [facility] Comment on above: Performed By: #### C BC ####[facility] Ymhjtxwfai16[address] [place] [id number]. Slick Broderick RBC 2.75 106/ul Critically low 4.20-5.40 [facility] Comment on above: Performed By: #### C BC ####[facility] Roidhtpxgs[address] [place] [address]Dr. Slick Broderick WBC 6.2 103/ul Normal 4.0-11.[address] [facility] Comment on above: Performed By: #### C BC ####[facility] Caykdszrso4[address] [place] [id number]. Slick Broderick BASO # 0.1 103/ul Normal 0.0-0.[address] [facility] Comment on above: Performed By: #### C BC ####[facility] Bkoxvanuql[address] [place] [address]Dr. Slick Broderick Basophils/100 WBC (Bld) 0.8 % Normal 0.2-2.0 [facility] Comment on above: Performed By: #### C BC ####[facility] Qmfhmjyszz5059 [place] [address]DrEmma Slick Broderick EO # 0.8 103/ul Critically high 0.0-0.7 [facility] Comment on above: Performed By: #### C BC ####[facility] Ulcyidffhz3333 [place] [address]DrEmma Slick Broderick Eosinophils/100 WBC (Bld) 11.7 % Critically high 0.9-7.0 [facility] Comment on above: Performed By: #### C BC ####[facility] Hwjjtexrzr[address] [place], [place] [address]Dr. Meaganwendie Broderick Erythrocyte distribution width (RBC) [Ratio] 14.1 % Normal 11.0-15.0 [facility] Comment on above: Performed By: #### C BC ####[facility] Tmrrlsdlwp[address] [place], [place] [address]DrEmma Meaganwendie Broderick Hematocrit (Bld) [Volume fraction] 27.3 % Critically low 36.0-48.0 [facility] Comment on above: Performed By: #### C BC ####[facility] Cciowyxlie[address] [place], [place] [address]Dr. Slick Broderick Hemoglobin (Bld) [Mass/Vol] 8.4 g/dL Critically low 12.0-16.0 [facility] Comment on above: Performed By: #### C BC ####[facility] Mplhrthxvh[address] [place], [place] [address]Dr. Meaganwendie Broderick IG # 0.02 10e3/ul Normal 0.00-0.03 [facility] Comment on above: Performed By: #### C BC ####[facility] Dxjupbnztq10[address] [place], [place] [address]Dr. Meaganwendie Broderick IG % 0.3 % Normal 0.0-0.5 [facility] Comment on above: Performed By: #### C BC ####[facility] Pcgqneiciy[address] [place], [place] [address]DrEmma Broderick LYMPH # 1.0 103/ul Critically low 1.2-3.8 [facility] Comment on above: Performed By: #### C BC ####[facility] Pspkfidmdw24[address] [place] [address]Dr. Slick Broderick Lymphocytes/100 WBC (Bld) 14.5 % Critically low 20.5-60.0 [facility] Comment on above: Performed By: #### C BC ####[facility] Qezwarukpk9262 [place] [address]Dr. Slick Broderick MANUAL DIFF REQ NO Normal [facility] Comment on above: Performed By: #### C BC ####[facility] Jcjkbwmjnj9306 [place] [address]Dr. Slick Broderick MCH (RBC) [Entitic mass] 29.2 pg Normal 26.7-34.0 [facility] Comment on above: Performed By: #### C BC ####[facility] Srhgqmhhxh[address] [place], [place] [address]Dr. Slick Broderick MCHC (RBC) [Mass/Vol] 30.8 g/dL Normal 29.9-35.2 [facility] Comment on above: Performed By: #### C BC ####[facility] Clbdmbiwom[address] [place], [place] [address]Dr. Slick Broderick MCV (RBC) [Entitic vol] 94.8 fL Normal 81.0-99.0 [facility] Comment on above: Performed By: #### C BC ####[facility] Nuksudpuvn54[address] [place], [place] [address]Dr. Slick Broderick MONO # 0.6 103/ul Normal 0.3-0.8 [facility] Comment on above: Performed By: #### C BC ####[facility] Gkfdywbopf98[address] [place], [place] [address]Dr. Slick Broderick Monocytes/100 WBC (Bld) 9.7 % Normal 1.7-12.0 [facility] Comment on above: Performed By: #### C BC ####[facility] Waexljcafx[address] [place], [place] [address]Dr. Slick Broderick NEUT # 4.2 103/ul Normal 1.4-6.5 [facility] Comment on above: Performed By: #### C BC ####[facility] Chfywmdohf69[address] [place] [address]Dr. Slick Broderick Neutrophils/100 WBC (Bld) 63.0 % Normal 43.0-75.0 [facility] Comment on above: Performed By: #### C BC ####[facility] Olpqvxswea4854 [place] [address]Dr. Slick Broderick Platelet mean volume (Bld) [Entitic vol] 10.0 fL Normal 9.5-13.5 [facility] Comment on above: Performed By: #### C BC ####[facility] Ehobpqmscp39[address] [place], [place] [address]Dr. Slick Broderick PLT 210 103/ul Normal 150-[address] [facility] Comment on above: Performed By: #### C BC ####[facility] Zelcxrukyg59[address] [place], [place] [address]Dr. Slick Broderick RBC 2.88 106/ul Critically low 4.20-5.40 [facility] Comment on above: Performed By: #### C BC ####[facility] Oljktjkyal[address] [place], [place] [address]Dr. Slick Broderick WBC 6.6 103/ul Normal 4.0-11.[address] [facility] Comment on above: Performed By: #### C BC ####[facility] Doiqdwgfao46[address] [place], [place] [address]Dr. Slick Broderick CRPon 04-21-2022 CRP 0.4 mg/dL Normal <=1.0 [facility] Comment on above: Performed By: #### H STROPN, CRP, CMP ####[facility] Nsobdkhxgt006[address] [place], [place] [address]Dr. Slick Broderick CT HEAD WO CONon 04-21-2022 CT HEAD WO CON Normal [facility] CULTURE BLOODon 04-21-2022 Microscopic examination of blood, culture Culture Observations: NO GROWTH AT [address] [facility] Comment on above: Performed By: #### B LDCX2 ####[facility] Petxzejlhv39[address] [place] [id number]. Slick Broderick Microscopic examination of blood, culture Culture Observations: NO GROWTH AT [address] [facility] Comment on above: Performed By: #### B LDCX1 ####[facility] Rkesrqcnkw2962 [place], [place] [address]Ws. Slick Broderick CULTURE URINEon 04-21-2022 CULTURE URINE Culture Observations: MODERATE GROWTH OF MIXED GENITAL OMAR. NO POTENTIAL PATHOGENS SEEN. Normal [facility] Comment on above: Performed By: #### U RCX ####[facility] Trrditphgf85[address] [place] [id number]. Slick Broderick Covid-19 PCR (CVDTBH)on 04-12 SARS-CoV-2 [...] for this test is supported by the [place] of [employer] and Human Service's declaration that [...] By: #### C VDTBH ####[facility] Mwyplrfsqo4037 [place] [id number]. Slick Broderick ER URINE PROFILEon 2 Bilirubin Ql (U) Negative Normal NEGATIVE [facility] Comment on above: Performed By: #### E JANIS PLEITEZ ####[facility] Vwbmsrxjmu2940 [place] [id number]. Slick Broderick Clarity (U) CLEAR Normal CLEAR [facility] Comment on above: Performed By: #### AMBERLY PEDRORO ####[facility] Uwxgsbkumr[address] [place], [place] [address]Dr. Slick Broderick Color (U) LT. YELLOW Normal YELLOW [facility] Comment on above: Performed By: #### AMOS PEDROICRO ####[facility] Wjyhtzbxje[address] [place], [place] [address]Dr. Slick Broderick ERUAHD A micrscopic examination will be performed if indicated. Normal [facility] Comment on above: Performed By: #### AMBERLY PEDRORO ####[facility] Ydtfdwjvlu[address] [place], [place] [address]Dr. Slick Broderick Glucose Ql (U) Negative Normal NEGATIVE [facility] Comment on above: Performed By: #### AMOS PEDROICRO ####[facility] Xvhslvecsk9[address] [place], [place] [address]Dr. Slick Broderick Hemoglobin Ql (U) Negative Normal NEGATIVE [facility] Comment on above: Performed By: #### AMOS PEDROICRO ####[facility] Wvvfgwhkhj617[address] [place], [place] [address]Dr. Slick Broderick Ketones Ql (U) Negative Normal NEGATIVE [facility] Comment on above: Performed By: #### Dennise PLEITEZ UMICRO ####[facility] Wftasaozwy[address] [place], [place] [address]Dr. Slick Broderick LEUKOCYTES TRACE Abnormal NEGATIVE [facility] Comment on above: Performed By: #### AMOS PEDROICRO ####[facility] Lboywsvtvm76[address] [place], [place] [address]Dr. Slick Broderick Nitrite Ql (U) Negative Normal NEGATIVE [facility] Comment on above: Performed By: #### Dennise PLEITEZ UMICRO ####[facility] Eqfvuusfhz08[address] [place], [place] [address]Dr. Slick Broderick pH (U) 5.5 [pH] Normal 5-[address] [facility] Comment on above: Performed By: #### JANIS PEDRO ####[facility] Jzakazjfda75[address] [place] [address]Dr. Slick Broderick SPEC GRAVITY 1.010 Normal 1.005-<=1.0 25 [facility] Comment on above: Performed By: #### JANIS PEDRO ####[facility] Vqajenwdod0683 [place] [address]Dr. Slick Broderick UA PROTEIN Negative Normal NEGATIVE/ TRACE [facility] Comment on above: Performed By: #### JANIS PEDRO ####[facility] Nekpvpaezq6831 [place] [address]Dr. Slick Broderick UR MICRO IND INDICATED Normal [facility] Comment on above: Performed By: #### JANIS PEDRO ####[facility] Jnfzjouwsu3440 [place] [address]Dr. Slick Broderick Urobilinogen Qn (U) 0.2 {Hiren'U}/dL Normal 0.2 - 1. 0 [facility] Comment on above: Performed By: #### JANIS PEDRO ####[facility] Sachstshnj[address] [place], [place] [address]Dr. Meaganwendie Davie LACTATE/LACTIC ACIDon 2021 Lactate [Moles/Vol] 1.0 mmol/L Normal 0.4-1.9 [facility] Comment on above: Performed By: #### L ACT ####[facility] Yjjkidptwm[address] [place], [place] [address]Dr. Meaganwendie Davie POINT OF CARE GLUCOSEon 04-12 Glucose [Mass/Vol] 109 mg/dL Critically high 74-106 [facility] Comment on above: Performed By: #### P OCGLUC ####[facility] Oqmxxzjupb[address] [place], [place] [address]Dr. Meaganwendie Broderick Glucose [Mass/Vol] 93 mg/dL Normal 74-106 [facility] Comment on above: Performed By: #### P OCGLUC ####[facility] Jinrvzynbt022[address] [place], [place] [address]Dr. Meaganwendie Davie Glucose [Mass/Vol] 140 mg/dL Critically high 74-[address] [facility] Comment on above: Performed By: #### P OCGLUC ####[facility] Ycwhohftmm1122 [place] [address]Dr. Slick Broderick Glucose [Mass/Vol] 95 mg/dL Normal 74-106 [facility] Comment on above: Performed By: #### P OCGLUC ####[facility] Hwisjbxuvq[address] [place], [place] [address]Dr. Slick Broderick PROF 14(COMP METB)on 022 Albumin [Mass/Vol] 2.9 g/dL Critically low 3.4-5.0 [facility] Comment on above: Performed By: #### C MP ####[facility] Kmbemcrfbj80[address] [place], [place] [address]Dr. Slick Broderick Albumin/Globulin [Mass ratio] 0.9 {ratio} Normal [facility] Comment on above: Performed By: #### C MP ####[facility] Btyjfgenyg[address] [place], [place] [address]Dr. Slick Broderick ALP [Catalytic activity/Vol] 87 U/L Normal 46-116 [facility] Comment on above: Performed By: #### C MP ####[facility] Zmodwwoeey[address] [place], [place] [address]Dr. Slick Broderick ALT [Catalytic activity/Vol] 21 U/L Normal 14-59 [facility] Comment on above: Performed By: #### C MP ####[facility] Kssekipnrf4724[address] [place], [place] [address]Dr. Slick Broderick Anion gap [Moles/Vol] 7.7 mmol/L Normal [facility] Comment on above: Performed By: #### C MP ####[facility] Qlhbjozetm34[address] [place], [place] [address]Dr. Slick Broderick AST [Catalytic activity/Vol] 11 U/L Critically low 15-37 [facility] Comment on above: Performed By: #### C MP ####[facility] Cjcyxzfztr[address] [place], [place] [address]Dr. Slick Broderick Bilirubin [Mass/Vol] 0.2 mg/dL Normal 0.2-1.0 [facility] Comment on above: Performed By: #### C MP ####[facility] Tjlmpejbcc3904 [place] [address]Dr. Slick [place]ie Calcium [Mass/Vol] 9.4 mg/dL Normal 8.5-10.1 [facility] Comment on above: Performed By: #### C MP ####[facility] Bjmaighvpz[address] [place], [place] [address]Dr. Slick Broderick Chloride [Moles/Vol] 107 mmol/L Normal 98-107 [facility] Comment on above: Performed By: #### C MP ####[facility] Wsdcfeauze76[address] [place], [place] [address]Dr. Meaganwendie Davie CO2 [Moles/Vol] 31.2 mmol/L Normal 21.0-32.0 [facility] Comment on above: Performed By: #### C MP ####[facility] Aqlkrwcuxq[address] [place], [place] [address]Dr. Slick Broderick Creatinine [Mass/Vol] 2.06 mg/dL Critically high 0.55-1.02 [facility] Comment on above: Performed By: #### C MP ####[facility] Ciriahwdoi[address] [place], [place] [address]Dr. Meaganwendie Davie EGFR-AF OMANI 29 mL/min/1.73m2 Critically low >=60 [facility] Comment on above: Performed By: #### C MP ####[facility] Yxdgofvnui[address] [place], [place] [address]Dr. Slick Broderick EGFR-NON AF OMANI 24 mL/min/1.73m2 Critically low >=60 [facility] Comment on above: Performed By: #### C MP ####[facility] Hduuxfchru[address] [place], [place] [address]Dr. Slick Broderick Globulin (S) [Mass/Vol] 3.4 g/dL Normal T [facility] Comment on above: Performed By: #### C MP ####[facility] Ppiiperpdl94[address] [place], [place] [address]Dr. Slick Broderick Glucose [Mass/Vol] 93 mg/dL Normal 74-106 [facility] Comment on above: Performed By: #### C MP ####[facility] Bjbkeafbsg7550 [place] [address]Dr. Slick Broderick Potassium [Moles/Vol] 4.9 mmol/L Normal 3.5-5.1 [facility] Comment on above: Performed By: #### C MP ####[facility] Jobafryern1484 [place] [address]Dr. Slick Broderick Protein [Mass/Vol] 6.3 g/dL Critically low 6.4-8.2 [facility] Comment on above: Performed By: #### C MP ####[facility] Cabssiekze4083 [place] [address]Dr. Slick Broderick Sodium [Moles/Vol] 141 mmol/L Normal 136-145 [facility] Comment on above: Performed By: #### C MP ####[facility] Cikebztxzk[address] [place], [place] [address]Dr. Slick Broderick Urea nitrogen [Mass/Vol] 63.0 mg/dL Critically high 7.0-18.0 [facility] Comment on above: Performed By: #### C MP ####[facility] Qmixvrlato8517[address] [place], [place] [address]Dr. Slick Broderick Urea nitrogen/Creatinine [Mass ratio] 30.6 mg/mg Normal [facility] Comment on above: Performed By: #### C MP ####[facility] Vckbfddzfy7542 [place] [address]Dr. Slick Broderick Albumin [Mass/Vol] 3.1 g/dL Critically low 3.4-5.0 [facility] Comment on above: Performed By: #### H STROPN, CRP, CMP ####[facility] Fcdqfzyxju0316 [place] [address]Dr. Slick Broderick Albumin/Globulin [Mass ratio] 0.9 {ratio} Normal [facility] Comment on above: Performed By: #### H STROPN, CRP, CMP ####[facility] Qdgdlkowcd9047 [place] [address]Dr. Slick Broderick ALP [Catalytic activity/Vol] 98 U/L Normal 46-116 [facility] Comment on above: Performed By: #### H STROPN, CRP, CMP ####[facility] Attbyaxpvn9712 [place] [address]Dr. Slick Broderick ALT [Catalytic activity/Vol] 17 U/L Normal 14-59 [facility] Comment on above: Performed By: #### H STROPN, CRP, CMP ####[facility] Wifpqpingc0558 [place] [address]Dr. Slick Broderick Anion gap [Moles/Vol] 4.3 mmol/L Normal [facility] Comment on above: Performed By: #### H STROPN, CRP, CMP ####[facility] Fudcvbjffj3884 [place] [address]Dr. Slick Broderick AST [Catalytic activity/Vol] 11 U/L Critically low 15-37 [facility] Comment on above: Performed By: #### H STROPN, CRP, CMP ####[facility] Hbhejgbfyw5558 [place] [address]Dr. Slick Broderick Bilirubin [Mass/Vol] 0.2 mg/dL Normal 0.2-1.0 [facility] Comment on above: Performed By: #### H STROPN, CRP, CMP ####[facility] Vjkysgboig5[address] [place] [address]Dr. Slick Broderick Calcium [Mass/Vol] 9.6 mg/dL Normal 8.5-10.1 [facility] Comment on above: Performed By: #### H STROPN, CRP, CMP ####[facility] Ehetupfkaw7120 [place] [address]Dr. Slick Broderick Chloride [Moles/Vol] 104 mmol/L Normal 98-[address] [facility] Comment on above: Performed By: #### H STROPN, CRP, CMP ####[facility] Vnizdxdbbz1053 [place] [address]Dr. Slick Broderick CO2 [Moles/Vol] 32.3 mmol/L Critically high 21.0-32.[address] [facility] Comment on above: Performed By: #### H STROPN, CRP, CMP ####[facility] Vcfkytrerd6604 [place] [address]Dr. Slick Broderick Creatinine [Mass/Vol] 2.49 mg/dL Critically high 0.55-1.02 [facility] Comment on above: Performed By: #### H STROPN, CRP, CMP ####[facility] Odztmaehyn2252 [place] [address]Dr. Slick Broderick EGFR-AF OMANI 23 mL/min/1.73m2 Critically low >=60 [facility] Comment on above: Performed By: #### H STROPN, CRP, CMP ####[facility] Vagpqcxrle7381 [place] [address]Dr. Slick Broderick EGFR-NON AF OMANI 19 mL/min/1.73m2 Critically low >=60 [facility] Comment on above: Performed By: #### H STROPN, CRP, CMP ####[facility] Tvsokypbdr3717 [place] [address]Dr. Slick Broderick Globulin (S) [Mass/Vol] 3.5 g/dL Normal [facility] Comment on above: Performed By: #### H STROPN, CRP, CMP ####[facility] [address]imtcabrfd[address] [place], [place] [address]Dr. Slick Broderick Glucose [Mass/Vol] 112 mg/dL Critically high 74-106 [facility] Comment on above: Performed By: #### H STROPN, CRP, CMP ####[facility] Pibhlhubyd8307 [place] [address]Dr. Slick Broderick Potassium [Moles/Vol] 4.6 mmol/L Normal 3.5-5.1 [facility] Comment on above: Performed By: #### H STROPN, CRP, CMP ####[facility] T[address]yrkyygxe[address] [place], [place] [address]Dr. Slick Broderick Protein [Mass/Vol] 6.6 g/dL Normal 6.4-8.2 [facility] Comment on above: Performed By: #### H STROPN, CRP, CMP ####[facility] Urznwyyyhk6938 [place] [address]Dr. Slick Broderick Sodium [Moles/Vol] 136 mmol/L Normal 136-145 [facility] Comment on above: Performed By: #### H STROPN, CRP, CMP ####[facility] Kikuamnhlx7[address] [place] [id number]. Slick Broderick Urea nitrogen [Mass/Vol] 74.0 mg/dL Critically high 7.0-18.0 [facility] Comment on above: Performed By: #### H STROPN, CRP, CMP ####[facility] Esfqzbxtli0123 [place] [id number]. Slick Broderick Urea nitrogen/Creatinine [Mass ratio] 29.7 mg/mg Normal [facility] Comment on above: Performed By: #### H STROPN, CRP, CMP ####[facility] Asotopylah24[address] [place] [address]Dr. Slick Broderick SED [facility] 2021 SED RATE 32 mm/hr Critically high <=30 [facility] Comment on above: Performed By: #### S EDR ####[facility] Gwjehbbxgn2365 [place] [address]Dr. Slick Broderick TROPONIN, HIGH SENSITIVITYon 04-21-2022 HSTROP 8.6 pg/mL Normal 4.0-51.3 [facility] Comment on above: Result Comment: CUT- OFF POINTS HAVE BEEN ESTABLISHED BASED ON THE FOURTH UNIVERSAL DEFINITIONS OF MYOCARDIALINFARCTION. THE UPPER REFERENCE LIMIT (URL) OF TROPONIN, DEFINED THE 99TH PERCENTILE OFcTnI DISTRIBUTION IN A REFERENCE POPULATION, HAS BEEN CONFIRMED THE DECISION THRESHOLDFOR HI DIAGNOSIS. Performed By: #### H STROPN, CRP, CMP ####[facility] Vmnemhucql00[address] [place] [address]Dr. Slick Broderick URINE MICROSCOPIC ONLYon BACTERIA TRACE Abnormal NONE SEEN [facility] Comment on above: Performed By: #### E AMBERLY PLEITEZRO ####[facility] Zbmekljzsc3734 [place] [address]Dr. Slick Broderick Bacteria identified Cx Nom (U) INDICATED Normal [facility] Comment on above: Performed By: #### E BRITTNEYR, UMICRO ####[facility] Yqvqlykwog6158 [place] [address]Dr. Slick Broderick CAST NONE SEEN Normal NONE SEEN [facility] Comment on above: Performed By: #### AMBERLY PEDRORO ####[facility] Daxshogsge8121 [place] [address]Dr. Meaganwendie Broderick Crystals LM Nom (Urine sed) NONE SEEN Normal NONE SEEN [facility] Comment on above: Performed By: #### AMBERLY PEDRORO ####[facility] Vbupbtmytm7110 [place] [address]Dr. Slick Broderick Epithelial cells LM Ql (Urine sed) FEW Abnormal NONE SEEN /RARE [facility] Comment on above: Performed By: #### AMBERLY PEDRORO ####[facility] Uqwuxogwti5396 [place] [address]Dr. Meaganwendie Broderick MUCOUS NONE SEEN Normal NONE SEEN [facility] Comment on above: Performed By: #### AMBERLY PEDRORO ####[facility] Qygghkkyty[address] [place], [place] [address]Dr. Slikc Broderick RBC 0-2 Normal 0-2 [facility] Comment on above: Performed By: #### AMBERLY PEDRORO ####[facility] [address]syecczglb[address] [place], [place] [address]Dr. Slick Broderick WBC 5-10 Abnormal NONE SEEN [facility] Comment on above: Performed By: #### AMBERLY PEDRORO ####[facility] Gklczjfbap1529 [place] [address]Dr. Slick Broderick XR CHEST 1 Von 04-21-2022 XR CHEST [address] [facility] CBC AUTO DIFFon 03-29-2022 BASO # 0.1 103/ul Normal 0.0-0.1 [facility] Comment on above: Performed By: #### C BC ####[facility] [address]gglprpuq[address] [place], [place] [address]Dr. Slick Broderick Basophils/100 WBC (Bld) 0.7 % Normal 0.2-2.[address] [facility] Comment on above: Performed By: #### C BC ####[facility] [address]fxkeslpu7[address] [place] [id number]. Slick Broderick EO # 0.4 103/ul Normal 0.0-0.7 [facility] Comment on above: Performed By: #### C BC ####[facility] Rzepyjjutl6027 [place] [id number]. Slick Broderick Eosinophils/100 WBC (Bld) 4.8 % Normal 0.9-7.0 [facility] Comment on above: Performed By: #### C BC ####[facility] Lniulaxfrq5514 [place] [id number]. Slick Broderick Erythrocyte distribution width (RBC) [Ratio] 13.9 % Normal 11.0-15.0 [facility] Comment on above: Performed By: #### C BC ####[facility] Yxwquhexez[address] [place], [place] [address]Dr. Slick Broderick Hematocrit (Bld) [Volume fraction] 28.0 % Critically low 36.0-48.0 [facility] Comment on above: Performed By: #### C BC ####[facility] [address]hhltavliz[address] [place], [place] [address]Dr. Slick Broderick Hemoglobin (Bld) [Mass/Vol] 8.8 g/dL Critically low 12.0-16.0 [facility] Comment on above: Performed By: #### C BC ####[facility] Dqixofgsni9173 [place] [address]Dr. Slick Broderick IG # 0.05 10e3/ul Critically high 0.00-0.03 [facility] Comment on above: Performed By: #### C BC ####[facility] Mxvfhczttk4520 [place] [address]Dr. Meaganwendie Broderick IG % 0.7 % Critically high 0.0-0.5 [facility] Comment on above: Performed By: #### C BC ####[facility] [address]zfevqozre[address] [place], [place] [address]Dr. Meaganwendie Broderick LYMPH # 1.0 103/ul Critically low 1.2-3.8 [facility] Comment on above: Performed By: #### C BC ####[facility] Exwobpqnwy[address] [place] [id number]. Slick Broderick Lymphocytes/100 WBC (Bld) 13.0 % Critically low 20.5-60.0 [facility] Comment on above: Performed By: #### C BC ####[facility] Hovadwjdnq66[address] [place] [id number]. Slick Broderick MANUAL DIFF REQ NO Normal [facility] Comment on above: Performed By: #### C BC ####[facility] Uohjrknfan8292 [place] [id number]. Slick Broderick MCH (RBC) [Entitic mass] 28.9 pg Normal 26.7-34.0 [facility] Comment on above: Performed By: #### C BC ####[facility] Tirgkhhpwz[address] [place], [place] [address]Dr. Slick Broderick MCHC (RBC) [Mass/Vol] 31.4 g/dL Normal 29.9-35.2 [facility] Comment on above: Performed By: #### C BC ####[facility] Elbzbibshf4115 [place] [id number]. Slick Broderick MCV (RBC) [Entitic vol] 92.1 fL Normal 81.0-99.0 [facility] Comment on above: Performed By: #### C BC ####[facility] Dpngmuamoh2602 [place] [address]Dr. Slick Broderick MONO # 0.8 103/ul Normal 0.3-0.8 [facility] Comment on above: Performed By: #### C BC ####[facility] Jdmzaatwmp5477 [place] [id number]. Slick Broderick Monocytes/100 WBC (Bld) 10.7 % Normal 1.7-12.0 [facility] Comment on above: Performed By: #### C BC ####[facility] Pxhnnaidbn[address] [place], [place] [id number]. Slick Broderick NEUT # 5.4 103/ul Normal 1.4-6.5 [facility] Comment on above: Performed By: #### C BC ####[facility] Pnnitvdrxi8773 [place] [address]Dr. Slick Broderick Neutrophils/100 WBC (Bld) 70.1 % Normal 43.0-75.0 [facility] Comment on above: Performed By: #### C BC ####[facility] Rapbknjbou3065 [place] [address]Dr. Meaganwendie Davie Platelet mean volume (Bld) [Entitic vol] 8.9 fL Critically low 9.5-13.5 [facility] Comment on above: Performed By: #### C BC ####[facility] Ghrrxjhmvf1311 [place] [address]Dr. Slick Davie PLT 221 103/ul Normal 150-[address] [facility] Comment on above: Performed By: #### C BC ####[facility] Bvatgplcvp3201 [place] [address]Dr. Slick Broderick RBC 3.04 106/ul Critically low 4.20-5.40 [facility] Comment on above: Performed By: #### C BC ####[facility] Juctkykral[address] [place], [place] [address]Dr. Meaganwendie Broderick WBC 7.7 103/ul Normal 4.0-11.[address] [facility] Comment on above: Performed By: #### C BC ####[facility] Cihicqojls[address] [place], [place] [address]Dr. Slick Davie PRBC LEUKOREDUCEDon 03-29-20 PRBC LEUKOREDUCED Cross Match Result Compatible Unit Blood Type O Pos Unit Number [id number] Status Information Transfused Product ID Red Blood Cells Product Code [id number] Normal [facility] Comment on above: Performed By: #### P RBC ####[facility] Krbebvpppw9509 [place] [address]Dr. Meaganwendie Broderick PROF CHEM 8 (BAS METB)on Anion gap [Moles/Vol] 9.6 mmol/L Normal [facility] Comment on above: Performed By: #### B MP ####[facility] Ussftkjgoy8125 [place] [id number]. Slick Broderick Calcium [Mass/Vol] 9.4 mg/dL Normal 8.5-10.1 [facility] Comment on above: Performed By: #### B MP ####[facility] Iumpopduae2963 [place] [id number]. Slick Broderick Chloride [Moles/Vol] 101 mmol/L Normal 98-[address] [facility] Comment on above: Performed By: #### B MP ####[facility] Yndsjeafve0364 [place] [id number]. Slick Broderick CO2 [Moles/Vol] 28.3 mmol/L Normal 21.0-32.0 [facility] Comment on above: Performed By: #### B MP ####[facility] Iiltgtzojq[address] [place], [place] [address]Dr. Slick Broderick Creatinine [Mass/Vol] 1.56 mg/dL Critically high 0.55-1.02 [facility] Comment on above: Performed By: #### B MP ####[facility] Uxjsmlkqhx[address] [place], [place] [address]Dr. Slick Broderick EGFR-AF OMANI 39 mL/min/1.73m2 Critically low >=[address] [facility] Comment on above: Performed By: #### B MP ####[facility] Bsgpsqjxgu[address] [place], [place] [address]Dr. Slick Broderick EGFR-NON AF OMANI 33 mL/min/1.73m2 Critically low >=[address] [facility] Comment on above: Performed By: #### B MP ####[facility] Yvxiywrtsb6469 [place] [address]Dr. Slick Broderick Glucose [Mass/Vol] 88 mg/dL Normal 74-106 [facility] Comment on above: Performed By: #### B MP ####[facility] Hiffektriu88[address] [place], [place] [address]Dr. Slick Broderick Potassium [Moles/Vol] 4.9 mmol/L Normal 3.5-5.[address] [facility] Comment on above: Performed By: #### B MP ####[facility] Bfnbekxccc1938 [place] [id number]. Slick Broderick Sodium [Moles/Vol] 134 mmol/L Critically low 136-145 [facility] Comment on above: Performed By: #### B MP ####[facility] Xjqkatpogf[address] [place], [place] [address]Dr. Slick Broderick Urea nitrogen [Mass/Vol] 50.0 mg/dL Critically high 7.0-18.0 [facility] Comment on above: Performed By: #### B MP ####[facility] Rsgvsmsvmz[address] [place], [place] [address]Dr. Slick Broderick Urea nitrogen/Creatinine [Mass ratio] 32.1 mg/mg Normal [facility] Comment on above: Performed By: #### B MP ####[facility] Oxuwfyclht[address] [place], [place] [address]Dr. Slick Davie CBC AUTO DIFFon 03-28-2022 BASO # 0.1 103/ul Normal 0.0-0.1 [facility] Comment on above: Performed By: #### C BC ####[facility] Bjunwbikfe[address] [place], [place] [address]Dr. Slick Davie Basophils/100 WBC (Bld) 0.7 % Normal 0.2-2.0 [facility] Comment on above: Performed By: #### C BC ####[facility] Sdukeehqui17[address] [place], [place] [address]Dr. Slick Davie EO # 0.4 103/ul Normal 0.0-0.7 [facility] Comment on above: Performed By: #### C BC ####[facility] Fzwbfqznxz[address] [place], [place] [address]Dr. Slick Davie Eosinophils/100 WBC (Bld) 5.5 % Normal 0.9-7.0 [facility] Comment on above: Performed By: #### C BC ####[facility] Nbaxeiauun[address] [place], [place] [address]Dr. Slick Broderick Erythrocyte distribution width (RBC) [Ratio] 13.6 % Normal 11.0-15.0 [facility] Comment on above: Performed By: #### C BC ####[facility] Sbsbqghclr2016 [place] [address]Dr. Slick Broderick Hematocrit (Bld) [Volume fraction] 27.9 % Critically low 36.0-48.0 [facility] Comment on above: Performed By: #### C BC ####[facility] Kmbankxdkf8263 [place] [address]DrEmma Slick Davie Hemoglobin (Bld) [Mass/Vol] 9.0 g/dL Critically low 12.0-16.0 [facility] Comment on above: Performed By: #### C BC ####[facility] Staeeyigww9[address] [place], [place] [address]Dr. Slick Broderick IG # 0.02 10e3/ul Normal 0.00-0.03 [facility] Comment on above: Performed By: #### C BC ####[facility] Zkpctkiaww[address] [place], [place] [address]DrEmma Broderick IG % 0.3 % Normal 0.0-0.5 [facility] Comment on above: Performed By: #### C BC ####[facility] Iagjxknnnq0972 [place] [address]DrEmma Slick Davie LYMPH # 0.9 103/ul Critically low 1.2-3.8 [facility] Comment on above: Performed By: #### C BC ####[facility] Kjdvfnstbk8219 [place] [address]DrEmma Broderick Lymphocytes/100 WBC (Bld) 13.0 % Critically low 20.5-60.0 [facility] Comment on above: Performed By: #### C BC ####[facility] Fhxbxbcvzg7367 [place] [address]DrEmma Broderick MANUAL DIFF REQ NO Normal [facility] Comment on above: Performed By: #### C BC ####[facility] Zoglxrmqrb2909 [place] [address]DrEmma Broderick MCH (RBC) [Entitic mass] 29.6 pg Normal 26.7-34.0 [facility] Comment on above: Performed By: #### C BC ####[facility] Krlwognura7530 [place] [id number]. Slick Davie MCHC (RBC) [Mass/Vol] 32.3 g/dL Normal 29.9-35.2 [facility] Comment on above: Performed By: #### C BC ####[facility] Dptwkqnugy3998 [place] [id number] Broderick MCV (RBC) [Entitic vol] 91.8 fL Normal 81.0-99.0 [facility] Comment on above: Performed By: #### C BC ####[facility] Sjxaiikscl1230 [place] [address]DrEmma Broderick MONO # 0.7 103/ul Normal 0.3-0.8 [facility] Comment on above: Performed By: #### C BC ####[facility] Jnnipkleds[address] [place], [place] [address]DrEmma Broderick Monocytes/100 WBC (Bld) 11.1 % Normal 1.7-12.0 [facility] Comment on above: Performed By: #### C BC ####[facility] Qpbubveuqs355[address] [place], [place] [address]Dr. Slick Broderick NEUT # 4.6 103/ul Normal 1.4-6.5 [facility] Comment on above: Performed By: #### C BC ####[facility] Uyyaihmijw5144 [place] [id number] Broderick Neutrophils/100 WBC (Bld) 69.4 % Normal 43.0-75.0 [facility] Comment on above: Performed By: #### C BC ####[facility] Kxcwuuicyq4713 [place] [id number] Broderick Platelet mean volume (Bld) [Entitic vol] 8.9 fL Critically low 9.5-13.5 [facility] Comment on above: Performed By: #### C BC ####[facility] Juygkgqftl0718 [place] [id number] Broderick PLT 216 103/ul Normal 150-450 [facility] Comment on above: Performed By: #### C BC ####[facility] Yldirgyiwo2539 [place] [id number]. Slick Broderick RBC 3.04 106/ul Critically low 4.20-5.40 [facility] Comment on above: Performed By: #### C BC ####[facility] Zdbyauehav6330 [place] [id number]. Slick Broderick WBC 6.7 103/ul Normal 4.0-11.0 [facility] Comment on above: Performed By: #### C BC ####[facility] Bhhofcbjmr9562 [place] [id number]. Slick Broderick BASO # 0.0 103/ul Normal 0.0-0.1 [facility] Comment on above: Performed By: #### C BC ####[facility] Tnfksqsmfm[address] [place], [place] [address]Dr. Slick Broderick Basophils/100 WBC (Bld) 0.5 % Normal 0.2-2.0 [facility] Comment on above: Performed By: #### C BC ####[facility] Tmtbuevxyv7096 [place] [id number]. Slick Broderick EO # 0.4 103/ul Normal 0.0-0.7 [facility] Comment on above: Performed By: #### C BC ####[facility] Wpcjnosljo6498 [place] [id number]. Slick Broderick Eosinophils/100 WBC (Bld) 5.3 % Normal 0.9-7.0 [facility] Comment on above: Performed By: #### C BC ####[facility] Yqaugwxhpy[address] [place], [place] [address]Dr. Meaganwendie Broderick Erythrocyte distribution width (RBC) [Ratio] 12.9 % Normal 11.0-15.0 [facility] Comment on above: Performed By: #### C BC ####[facility] Rosryfdtcj[address] [place], [place] [address]Dr. Meaganwendie Broderick Hematocrit (Bld) [Volume fraction] 23.9 % Critically low 36.0-48.0 [facility] Comment on above: Performed By: #### C BC ####[facility] Xadjrtfxdk8490 [place] [id number]. Slick Broderick Hemoglobin (Bld) [Mass/Vol] 7.7 g/dL Critically low 12.0-16.0 [facility] Comment on above: Performed By: #### C BC ####[facility] Rhdhtdnwhw5667 [place] [id number]. Slick Broderick IG # 0.04 10e3/ul Critically high 0.00-0.03 [facility] Comment on above: Performed By: #### C BC ####[facility] Dizgzhxsnx8165 [place] [address]Dr. Slick Broderick IG % 0.5 % Normal 0.0-0.5 [facility] Comment on above: Performed By: #### C BC ####[facility] Nsshwinnvs5714 [place] [address]Dr. Slick Broderick LYMPH # 0.9 103/ul Critically low 1.2-3.8 [facility] Comment on above: Performed By: #### C BC ####[facility] Uimoftqndt1998 [place] [address]Dr. Slick Davie Lymphocytes/100 WBC (Bld) 11.7 % Critically low 20.5-60.0 [facility] Comment on above: Performed By: #### C BC ####[facility] Jhfbsjknfo2246 [place] [address]Dr. Slick Broderick MANUAL DIFF REQ NO Normal [facility] Comment on above: Performed By: #### C BC ####[facility] Gyefluiukd1537 [place] [id number]. Slick Broderick MCH (RBC) [Entitic mass] 30.1 pg Normal 26.7-34.0 [facility] Comment on above: Performed By: #### C BC ####[facility] Asfxfrslfm0002 [place] [id number]. Slick Broderick MCHC (RBC) [Mass/Vol] 32.2 g/dL Normal 29.9-35.2 [facility] Comment on above: Performed By: #### C BC ####[facility] Rkpzmcgrlg7714 [place] [id number]. Slick Broderick MCV (RBC) [Entitic vol] 93.4 fL Normal 81.0-99.0 [facility] Comment on above: Performed By: #### C BC ####[facility] Takwbsynbf3045 [place] [id number]. Slick Broderick MONO # 0.9 103/ul Critically high 0.3-0.8 [facility] Comment on above: Performed By: #### C BC ####[facility] Kifyvsphav0571 [place] [address]Dr. Slick Broderick Monocytes/100 WBC (Bld) 12.0 % Normal 1.7-12.0 [facility] Comment on above: Performed By: #### C BC ####[facility] Ibsjbpecge[address] [place], [place] [address]Dr. Slick Broderick NEUT # 5.4 103/ul Normal 1.4-6.5 [facility] Comment on above: Performed By: #### C BC ####[facility] Bpxbrwppfc[address] [place], [place] [address]Dr. Slick Broderick Neutrophils/100 WBC (Bld) 70.0 % Normal 43.0-75.0 [facility] Comment on above: Performed By: #### C BC ####[facility] Yxxtevdwnj8452 [place] [address]Dr. Slick Davie Platelet mean volume (Bld) [Entitic vol] 9.0 fL Critically low 9.5-13.5 [facility] Comment on above: Performed By: #### C BC ####[facility] Cszqrwdcze[address] [place], [place] [address]Dr. Slick Broderick PLT 210 103/ul Normal 150-[address] [facility] Comment on above: Performed By: #### C BC ####[facility] Tdcywjueie1272 [place] [id number]. Slick Broderick RBC 2.56 106/ul Critically low 4.20-5.40 [facility] Comment on above: Performed By: #### C BC ####[facility] Njvknzvoqa7052 [place], [place] [address]Jz. Slick Broderick WBC 7.7 103/ul Normal 4.0-11.0 [facility] Comment on above: Performed By: #### C BC ####[facility] Osvenciwps3893 [place], [place] [address]Mv. Slick Broderick CULTURE URINEon 03-28-2022 CULTURE URINE Culture Observations: NO GROWTH. Normal [facility] Comment on above: Performed By: #### U RCX ####[facility] Aebrmbwdic3411 [place], [place] [address]Vx. Slick Broderick Covid-19 PCR (CVDTBH)on 03-12 SARS-CoV-2 [...] for this test is supported by the Pediatric Sports Medicine Specialist of Health and Human Service's declaration that [...] By: #### C VDTBH ####[facility] Xukjpmaulh5079 [place], [place] [address]Of. Slick Broderick IRONon 03-28-2022 Iron [Mass/Vol] 32.0 ug/dL Critically low 50.0-170.0 [facility] Comment on above: Performed By: #### I YUNIOR ####[facility] Ykfzbwsdez9470 [place] [id number]. Meaganwendie Davie POINT OF CARE GLUCOSEon 03-12 Glucose [Mass/Vol] 119 mg/dL Critically high 74-106 [facility] Comment on above: Performed By: #### P OCGLUC ####[facility] Nyekgtiwtk6522 [place] [address]Dr. Slick Broderick Glucose [Mass/Vol] 178 mg/dL Critically high 74-106 [facility] Comment on above: Performed By: #### P OCGLUC ####[facility] Dntpnvybnn4036 [place] [address]Dr. Slick Broderick Glucose [Mass/Vol] 106 mg/dL Normal 74-106 [facility] Comment on above: Performed By: #### P OCGLUC ####[facility] Eqcxmkbevs8790 [place] [address]Dr. Slick Broderick PROF CHEM 8 (BAS METB)on Anion gap [Moles/Vol] 9.5 mmol/L Normal [facility] Comment on above: Performed By: #### B MP ####[facility] Ogzgsjtkmh[address] [place], [place] [address]Dr. Slick Broderick Calcium [Mass/Vol] 9.5 mg/dL Normal 8.5-10.1 [facility] Comment on above: Performed By: #### B MP ####[facility] Expjvxtzyd[address] [place], [place] [address]Dr. Slick Broderick Chloride [Moles/Vol] 98 mmol/L Normal 98-107 [facility] Comment on above: Performed By: #### B MP ####[facility] Ysihtdtoip[address] [place], [place] [address]Dr. Slick Broderick CO2 [Moles/Vol] 28.5 mmol/L Normal 21.0-32.0 [facility] Comment on above: Performed By: #### B MP ####[facility] Ocftocytau[address] [place], [place] [address]Dr. Slick Broderick Creatinine [Mass/Vol] 1.90 mg/dL Critically high 0.55-1.02 [facility] Comment on above: Performed By: #### B MP ####[facility] Ndesgxdxtc6201 [place] [id number]. Slick Davie EGFR-AF OMANI 31 mL/min/1.73m2 Critically low >=60 [facility] Comment on above: Performed By: #### B MP ####[facility] Nckbucdgev4607 [place] [id number]. Meaganwendie Davie EGFR-NON AF OMANI 26 mL/min/1.73m2 Critically low >=60 [facility] Comment on above: Performed By: #### B MP ####[facility] Veycvoglkp1116 [place] [id number]. Slick Broderick Glucose [Mass/Vol] 102 mg/dL Normal 74-106 [facility] Comment on above: Performed By: #### B MP ####[facility] Wwqsqhmkel4511 [place] [id number]. Slick Broderick Potassium [Moles/Vol] 4.0 mmol/L Normal 3.5-5.1 [facility] Comment on above: Performed By: #### B MP ####[facility] Uojnzqqpir3309 [place] [id number]. Slick Broderick Sodium [Moles/Vol] 132 mmol/L Critically low 136-145 [facility] Comment on above: Performed By: #### B MP ####[facility] Saaywlmlbb4867 [place] [id number]. Slick Broderick Urea nitrogen [Mass/Vol] 56.0 mg/dL Critically high 7.0-18.0 [facility] Comment on above: Performed By: #### B MP ####[facility] Mahiidmqle2701 [place] [id number]. Slick Broderick Urea nitrogen/Creatinine [Mass ratio] 29.5 mg/mg Normal [facility] Comment on above: Performed By: #### B MP ####[facility] Szmuzwxwpc0230 [place] [id number]. Slick Broderick T4on 03-28-2022 T4 [Mass/Vol] 4.90 ug/dL Normal 4.80-13.90 [facility] Comment on above: Performed By: #### T 4 ####[facility] Gwzjvaxfub[address] [place], [place] [address]Dr. Slick Broderick TSHon 03-28-2022 TSH 2.765 uIU/mL Normal 0.358-3.740 [facility] Comment on above: Performed By: #### T SH ####[facility] Zuclwuqvuf[address] [place], [place] [address]Dr. Slick Broderick TYPE AND SCREENon 03-28-2022 TYPE AND SCREEN Negative Normal [facility] Comment on above: Performed By: #### T NS ####[facility] Bcxcunmipq[address] [place], [place] [address]Dr. Slick Broderick UA RANDOM W/MICROSCOPICon BACTERIA NONE SEEN Normal NONE SEEN [facility] Comment on above: Performed By: #### U AMIC ####[facility] Lneafpimvx512[address] [place], [place] [address]Dr. Slick Broderick Bilirubin Ql (U) Negative Normal NEGATIVE [facility] Comment on above: Performed By: #### U AMIC ####[facility] Cojvtvhhqi07[address] [place], [place] [address]Dr. Slick Broderick CAST NONE SEEN Normal NONE SEEN [facility] Comment on above: Performed By: #### U AMIC ####[facility] Bmfjwmtsvo16[address] [place], [place] [address]Dr. Slick Broderick Clarity (U) CLEAR Normal CLEAR [facility] Comment on above: Performed By: #### U AMIC ####[facility] Zfatjqdhbo91[address] [place], [place] [address]Dr. Slick Broderick Color (U) LT. YELLOW Normal YELLOW [facility] Comment on above: Performed By: #### U AMIC ####[facility] Dlhwspiqje95[address] [place], [place] [address]Dr. Slick Broderick Crystals LM Nom (Urine sed) NONE SEEN Normal NONE SEEN [facility] Comment on above: Performed By: #### U AMIC ####[facility] Yvdjyxvqel[address] [place], [place] [address]Dr. Slick Broderick Epithelial cells LM Ql (Urine sed) FEW Abnormal NONE SEEN /RARE [facility] Comment on above: Performed By: #### U AMIC ####[facility] Rmqqqplgmu442[address] [place], [place] [address]Dr. Slick Broderick Glucose Ql (U) Negative Normal NEGATIVE [facility] Comment on above: Performed By: #### U AMIC ####[facility] Nfcrqmdhzn64[address] [place], [place] [address]Dr. Slick Broderick Hemoglobin Ql (U) MODERATE Abnormal NEGATIVE [facility] Comment on above: Performed By: #### U AMIC ####[facility] Lgfdllzmgm[address] [place], [place] [address]Dr. Slick Broderick Ketones Ql (U) Negative Normal NEGATIVE [facility] Comment on above: Performed By: #### U AMIC ####[facility] Soepzfcmla[address] [place], [place] [address]Dr. Slick Broderick LEUKOCYTES TRACE Abnormal NEGATIVE [facility] Comment on above: Performed By: #### U AMIC ####[facility] Qfqgxkxdfd7[address] [place], [place] [address]Dr. Slick Broderick MUCOUS NONE SEEN Normal NONE SEEN [facility] Comment on above: Performed By: #### U AMIC ####[facility] Rumyvkxrqa02[address] [place], [place] [address]Dr. Slick Broderick Nitrite Ql (U) Negative Normal NEGATIVE [facility] Comment on above: Performed By: #### U AMIC ####[facility] Ndtfknmydt00[address] [place], [place] [address]Dr. Slick Broderick pH (U) 6.0 [pH] Normal 5-[address] [facility] Comment on above: Performed By: #### U AMIC ####[facility] Splplshdck[address] [place], [place] [address]Dr. Slick Broderick RBC 5-10 Abnormal 0-[address] [facility] Comment on above: Performed By: #### U AMIC ####[facility] Upzznivicx49[address] [place], [place] [address]Dr. Slick Broderick SPEC GRAVITY <=1.005 Abnormal 1.005-<=1.0 25 [facility] Comment on above: Performed By: #### U AMIC ####[facility] Axkjtjnyvn[address] [place], [place] [address]Dr. Slick Broderick UA PROTEIN Negative Normal NEGATIVE/ TRACE [facility] Comment on above: Performed By: #### U AMIC ####[facility] Rjhfumplrj[address] [place], [place] [address]Dr. Slick Broderick Urobilinogen Qn (U) 0.2 {Hiren'U}/dL Normal 0.2 - 1. 0 [facility] Comment on above: Performed By: #### U AMIC ####[facility] Zphbdsufyj8[address] [place], [place] [address]Dr. Slick Broderick WBC 2-5 Abnormal [address] SEEN [facility] Comment on above: Performed By: #### U AMIC ####[facility] Lzdfrizaya8[address] [place], [place] [address]Dr. Slick Brdoerick CBC AUTO DIFFon 03-27-2022 BASO # 0.0 103/ul Normal 0.0-0.1 [facility] Comment on above: Performed By: #### C BC ####[facility] Fcwhpafzsg[address] [place], [place] [address]Dr. Slick Broderick Basophils/100 WBC (Bld) 0.5 % Normal 0.2-2.0 [facility] Comment on above: Performed By: #### C BC ####[facility] Priwanrqvi[address] [place], [place] [address]Dr. Slick Broderick EO # 0.4 103/ul Normal 0.0-0.7 [facility] Comment on above: Performed By: #### C BC ####[facility] Unfkftyneh48[address] [place], [place] [address]Dr. Slick Broderick Eosinophils/100 WBC (Bld) 5.2 % Normal 0.9-7.0 [facility] Comment on above: Performed By: #### C BC ####[facility] Spwvqfkkna[address] [place], [place] [address]Dr. Slick Broderick Erythrocyte distribution width (RBC) [Ratio] 13.1 % Normal 11.0-15.[address] [facility] Comment on above: Performed By: #### C BC ####[facility] Jdlvywxmmj6165 [place] [address]Dr. Meaganwendie Broderick Hematocrit (Bld) [Volume fraction] 24.7 % Critically low 36.0-48.[address] [facility] Comment on above: Performed By: #### C BC ####[facility] Lyossbugjo[address] [place], [place] [address]Dr. Slick Broderick Hemoglobin (Bld) [Mass/Vol] 7.9 g/dL Critically low 12.0-16.[address] [facility] Comment on above: Performed By: #### C BC ####[facility] Bqmcucgwjs[address] [place], [place] [address]Dr. Slick Broderick IG # 0.06 10e3/ul Critically high 0.00-0.03 [facility] Comment on above: Performed By: #### C BC ####[facility] Wndoobhgzt[address] [place], [place] [address]Dr. Slick Broderick IG % 0.8 % Critically high 0.0-0.5 [facility] Comment on above: Performed By: #### C BC ####[facility] Znyeqxkquk[address] [place], [place] [address]Dr. Slick Broderick LYMPH # 0.9 103/ul Critically low 1.2-3.8 [facility] Comment on above: Performed By: #### C BC ####[facility] Ljyutvqswl[address] [place], [place] [address]Dr. Slick Broderick Lymphocytes/100 WBC (Bld) 11.1 % Critically low 20.5-60.[address] [facility] Comment on above: Performed By: #### C BC ####[facility] Vwnvvbzucz[address] [place], [place] [address]DrEmma Broderick MANUAL DIFF REQ NO Normal [facility] Comment on above: Performed By: #### C BC ####[facility] Foctdihuol[address] [place], [place] [address]Dr. Slick Broderick MCH (RBC) [Entitic mass] 29.7 pg Normal 26.7-34.0 [facility] Comment on above: Performed By: #### C BC ####[facility] [address]mcgfxd[address] [place] [address]Dr. Slick Broderick MCHC (RBC) [Mass/Vol] 32.0 g/dL Normal 29.9-35.2 [facility] Comment on above: Performed By: #### C BC ####[facility] Cjugigaiwx[address] [place], [place] [address]Dr. Slick Dav[place] MCV (RBC) [Entitic vol] 92.9 fL Normal 81.0-99.0 [facility] Comment on above: Performed By: #### C BC ####[facility] Cauiwtnnuu[address] [place], [place] [address]Dr. Meaganwendie Davie MONO # 0.8 103/ul Normal 0.3-0.8 [facility] Comment on above: Performed By: #### C BC ####[facility] Vnurezbksw47[address] [place], [place] [address]Dr. Meaganwendie Broderick Monocytes/100 WBC (Bld) 9.5 % Normal 1.7-12.0 [facility] Comment on above: Performed By: #### C BC ####[facility] Qqsxaaedeg[address] [place], [place] [address]Dr. Slick Broderick NEUT # 5.8 103/ul Normal 1.4-6.5 [facility] Comment on above: Performed By: #### C BC ####[facility] Mxhchlfqwp[address] [place], [place] [address]Dr. Slick Broderick Neutrophils/100 WBC (Bld) 72.9 % Normal 43.0-75.0 [facility] Comment on above: Performed By: #### C BC ####[facility] Sqhsjxtimv54[address] [place], [place] [address]Dr. Meaganwendie Davie Platelet mean volume (Bld) [Entitic vol] 8.9 fL Critically low 9.5-13.5 [facility] Comment on above: Performed By: #### C BC ####[facility] [address] [place] [id number]. Slick Broderick PLT 220 103/ul Normal 150-[address] [facility] Comment on above: Performed By: #### C BC ####[facility] Fpclotyyba3[address] [place] [id number]. Slick Broderick RBC 2.66 106/ul Critically low 4.20-5.40 [facility] Comment on above: Performed By: #### C BC ####[facility] Uodfakzywc[address] [place] [id number]. Slick Broderick WBC 7.9 103/ul Normal 4.0-11.0 [facility] Comment on above: Performed By: #### C BC ####[facility] Akqksfzyfg8484 [place] [address]Dr. Slick [place] OCC BLD IMMUNO SCREENon 03-12 OCCULT BLOOD Positive Abnormal NEGATIVE [facility] Comment on above: Performed By: #### O BSCRN ####[facility] Icoaqtxdup[address] [place], [place] [address]Dr. Meaganwendie Broderick PROF 14(COMP METB)on 022 Albumin [Mass/Vol] 3.2 g/dL Critically low 3.4-5.0 [facility] Comment on above: Performed By: #### C MP ####[facility] Xpmpwdbcbo[address] [place] [address]Dr. Meaganwendie Broderick Albumin/Globulin [Mass ratio] 0.9 {ratio} Normal [facility] Comment on above: Performed By: #### C MP ####[facility] [address]vowezfjlb[address] [place] [id number]. Slick Dav[place] ALP [Catalytic activity/Vol] 101 U/L Normal 46-[address] [facility] Comment on above: Performed By: #### C MP ####[facility] Ogascrftaf0664 [place] [address]Dr. Slick Broderick ALT [Catalytic activity/Vol] 28 U/L Normal 14-59 [facility] Comment on above: Performed By: #### C MP ####[facility] Yueukosilu1426 [place] [address]Dr. Slick Broderick Anion gap [Moles/Vol] 11.5 mmol/L Normal [facility] Comment on above: Performed By: #### C MP ####[facility] Yyvntbuahg4754 [place] [address]Dr. Slick Broderick AST [Catalytic activity/Vol] 21 U/L Normal 15-37 [facility] Comment on above: Performed By: #### C MP ####[facility] Qzytbqsere[address] [place], [place] [address]Dr. Slick Davie Bilirubin [Mass/Vol] 0.2 mg/dL Normal 0.2-1.0 [facility] Comment on above: Performed By: #### C MP ####[facility] Sxkrkxqlzv[address] [place], [place] [address]Dr. Slick Broderick Calcium [Mass/Vol] 9.3 mg/dL Normal 8.5-10.1 [facility] Comment on above: Performed By: #### C MP ####[facility] Kxuvmavpla[address] [place], [place] [address]Dr. Slick Broderick Chloride [Moles/Vol] 93 mmol/L Critically low 98-107 [facility] Comment on above: Performed By: #### C MP ####[facility] Egjbarpwhb[address] [place], [place] [address]Dr. Slick Broderick CO2 [Moles/Vol] 27.3 mmol/L Normal 21.0-32.0 [facility] Comment on above: Performed By: #### C MP ####[facility] Nzirwmeduq55[address] [place], [place] [address]Dr. Slick Broderick Creatinine [Mass/Vol] 1.98 mg/dL Critically high 0.55-1.02 [facility] Comment on above: Performed By: #### C MP ####[facility] Vaqkhuqozx64[address] [place], [place] [address]Dr. Slick Broderick EGFR-AF OMANI 30 mL/min/1.73m2 Critically low >=[address] [facility] Comment on above: Performed By: #### C MP ####[facility] Pkrzzjfklf[address] [place], [place] [address]Dr. Slick Davie EGFR-NON AF OMANI 25 mL/min/1.73m2 Critically low >=60 [facility] Comment on above: Performed By: #### C MP ####[facility] Taypxmdonw[address] [place], [place] [address]Dr. Slick Broderick Globulin (S) [Mass/Vol] 3.6 g/dL Normal [facility] Comment on above: Performed By: #### C MP ####[facility] Usgwkmfpkw[address] [place], [place] [address]Dr. Meaganwendie Davie Glucose [Mass/Vol] 123 mg/dL Critically high 74-106 [facility] Comment on above: Performed By: #### C MP ####[facility] Upauwktpwg260[address] [place], [place] [address]Dr. Slick Broderick Potassium [Moles/Vol] 3.8 mmol/L Normal 3.5-5.1 [facility] Comment on above: Performed By: #### C MP ####[facility] Offvupioai04[address] [place], [place] [address]Dr. Slick Davie Protein [Mass/Vol] 6.8 g/dL Normal 6.4-8.2 [facility] Comment on above: Performed By: #### C MP ####[facility] Hdxtstduas[address] [place], [place] [address]Dr. Slick rBoderick Sodium [Moles/Vol] 128 mmol/L Critically low 136-145 [facility] Comment on above: Performed By: #### C MP ####[facility] Jimuhnmntn[address] [place], [place] [address]Dr. Slick Broderick Urea nitrogen [Mass/Vol] 64.0 mg/dL Critically high 7.0-18.0 [facility] Comment on above: Performed By: #### C MP ####[facility] Yccqmwqtxi[address] [place], [place] [address]Dr. Slick Broderick Urea nitrogen/Creatinine [Mass ratio] 32.3 mg/mg Normal [facility] Comment on above: Performed By: #### C MP ####[facility] Dvsceqakls[address] [place], [place] [address]Dr. Slick Broderick TROPONIN, HIGH SENSITIVITYon 03-27-2022 HSTROP 9.0 pg/mL Normal 4.0-51.[address] [facility] Comment on above: Result Comment: CUT- OFF POINTS HAVE BEEN ESTABLISHED BASED ON THE FOURTH UNIVERSAL DEFINITIONS OF MYOCARDIALINFARCTION. THE UPPER REFERENCE LIMIT (URL) OF TROPONIN, DEFINED THE 99TH PERCENTILE OFcTnI DISTRIBUTION IN A REFERENCE POPULATION, HAS BEEN CONFIRMED THE DECISION THRESHOLDFOR HI DIAGNOSIS. Performed By: #### H STROPN ####[facility] [address] [place], [place] [address]Ah. Slick Broderick Progress Noteson 03-24-2022 [employer]st Authentication Interface Message Text 1:32 AM EMERGENCY TRIAGE, TREAT AND TRANSPORT (ET3) DOCUMENTATION OF TELEHEALTH VISIT Date / Time: 03/24/2022 / 1:32 AM Name: Linda Nascimento : 1950 SSN: [id number] EMS Agency: [facility] [] Verbal consent obtained [...] Free Thyroxine Index 2.3 Normal 1.2-4.[address] [facility] Comment on above: Performed By: #### T HYLC ####[facility] [address]ipbsbsz16[address] [place] [id number]. Slick Broderick T3 Uptake 31 % Normal 24-[address] [facility] Comment on above: Performed By: #### T HYLC ####[facility] Oguvyzxolg7167 [place] [id number] Meaganwendie Broderick T4 [Mass/Vol] 7.4 ug/dL Normal 4.5-12.0 [facility] Comment on above: Performed By: #### T HYLC ####[facility] Gfpthetrkv7676 [place] [id number]. Slick Broderick VIT D 25-OH LABCORPon 2021 Vitamin D, 25-Hydroxy 58.7 ng/mL Normal 30.0-100.[address] [facility] Comment on above: Result Comment: Karla min D deficiency has been defined by the [place] of[employer] and an Endocrine Society practice guideline as alevel of serum 25-OH vitamin D less than 20 ng/mL (1,2).The Endocrine Society went on to further define vitamin Dinsufficiency as a level between 21 and 29 ng/mL (2).1. IOM ([place] of [employer]). 2010. Dietary reference intakes for calcium and D. [place]: The National Academies Press.2. Maryam [place], [place], Jacklyn-Jasen SCHAEFER, et al. Evaluation, treatment, and prevention of vitamin D deficiency: an Endocrine Society clinical practice guideline. JCEM. 2010; 96(7):1911-30. Performed By: #### V ITADLC ####[facility] Tndevclkfh8[address] [place] [id number] Meaganwendie Broderick CBC AUTO DIFFon 02-11-2022 BASO # 0.0 103/ul Normal 0.0-0.1 [facility] Comment on above: Performed By: #### C BC ####[facility] Jmicmfjtte9849 [place] [address]Dr. Slick Broderick Basophils/100 WBC (Bld) 0.6 % Normal 0.2-2.0 [facility] Comment on above: Performed By: #### C BC ####[facility] K[address]asp[address]ke[address] [place], [place] [address]Dr. Slick Broderick EO # 0.3 103/ul Normal 0.0-0.7 [facility] Comment on above: Performed By: #### C BC ####[facility] Oktdmqldfb4915[address] [place], [place] [address]Dr. Slick Broderick Eosinophils/100 WBC (Bld) 4.6 % Normal 0.9-7.0 [facility] Comment on above: Performed By: #### C BC ####[facility] Glaijkakdz[address] [place], [place] [address]Dr. Slick Broderick Erythrocyte distribution width (RBC) [Ratio] 14.0 % Normal 11.0-15.0 [facility] Comment on above: Performed By: #### C BC ####[facility] Ogzmywwwfi6[address] [place], [place] [address]Dr. Slick Broderick Hematocrit (Bld) [Volume fraction] 28.4 % Critically low 36.0-48.0 [facility] Comment on above: Performed By: #### C BC ####[facility] R[address]qkblotml[address] [place], [place] [address]Dr. Slick Broderick Hemoglobin (Bld) [Mass/Vol] 9.3 g/dL Critically low 12.0-16.0 [facility] Comment on above: Performed By: #### C BC ####[facility] Wnwcydmtds[address] [place], [place] [address]Dr. Slick Broderick IG # 0.03 10e3/ul Normal 0.00-0.03 [facility] Comment on above: Performed By: #### C BC ####[facility] Aoarqluidt[address] [place], [place] [address]DrEmma Broderick IG % 0.5 % Normal 0.0-0.5 [facility] Comment on above: Performed By: #### C BC ####[facility] Tyznfsymho[address] [place] [address]DrEmma Broderick LYMPH # 0.6 103/ul Critically low 1.2-3.8 [facility] Comment on above: Performed By: #### C BC ####[facility] Luqczwcghu2268 [place] [address]DrEmma Broderick Lymphocytes/100 WBC (Bld) 9.5 % Critically low 20.5-60.0 [facility] Comment on above: Performed By: #### C BC ####[facility] Rchztbktoz4862 [place] [address]DrEmma Broderick MANUAL DIFF REQ NO Normal [facility] Comment on above: Performed By: #### C BC ####[facility] Zwqnirxdfa8726 [place] [address]DrEmma Broderick MCH (RBC) [Entitic mass] 30.5 pg Normal 26.7-34.0 [facility] Comment on above: Performed By: #### C BC ####[facility] Nwjtjlhkak[address] [place], [place] [address]DrEmma Broderick MCHC (RBC) [Mass/Vol] 32.7 g/dL Normal 29.9-35.2 [facility] Comment on above: Performed By: #### C BC ####[facility] Nduegcwhni[address] [place], [place] [address]DrEmma Broderick MCV (RBC) [Entitic vol] 93.1 fL Normal 81.0-99.0 [facility] Comment on above: Performed By: #### C BC ####[facility] Ryxojmnocd3953 [place] [address]DrEmma Broderick MONO # 0.6 103/ul Normal 0.3-0.8 [facility] Comment on above: Performed By: #### C BC ####[facility] Yqkestsszo[address] [place], [place] [address]DrEmma Broderick Monocytes/100 WBC (Bld) 8.4 % Normal 1.7-12.0 [facility] Comment on above: Performed By: #### C BC ####[facility] Tpojbvzrhf9142 [place] [address]Dr. Slick Broderick NEUT # 5.0 103/ul Normal 1.4-6.5 [facility] Comment on above: Performed By: #### C BC ####[facility] Plhzollkhc7027 [place] [address]Dr. Slick Broderick Neutrophils/100 WBC (Bld) 76.4 % Critically high 43.0-75.0 [facility] Comment on above: Performed By: #### C BC ####[facility] Vktqbyrnsf[address] [place], [place] [address]Dr. Slick Broderick Platelet mean volume (Bld) [Entitic vol] 9.3 fL Critically low 9.5-13.5 [facility] Comment on above: Performed By: #### C BC ####[facility] Icboaunpaf[address] [place], [place] [address]Dr. Slick Broderick PLT 192 103/ul Normal 150-450 [facility] Comment on above: Performed By: #### C BC ####[facility] Xpqvtfxfob[address] [place], [place] [address]Dr. Slick Broderick RBC 3.05 106/ul Critically low 4.20-5.40 [facility] Comment on above: Performed By: #### C BC ####[facility] Gsjgwaaslm[address] [place], [place] [address]Dr. Slick Broderick WBC 6.6 103/ul Normal 4.0-11.[address] [facility] Comment on above: Performed By: #### C BC ####[facility] Acwmiixbsj[address] [place], [place] [address]Dr. Slick Broderick IRONon 02-11-2022 Iron [Mass/Vol] 62.0 ug/dL Normal 50.0-170.0 [facility] Comment on above: Performed By: #### I YUNIOR ####[facility] [address]fnhzvmlgh[address] [place], [place] [address]Dr. Slick Broderick LIPID PROFILEon 02-11-2022 CHOL-HDL RATIO NORM SEE BELOW Normal [facility] Comment on above: Result Comment: 3.3 - 4.4 LOW RISK 4.4 - 7.1 AVERAGE RISK 7.1 - 11.0 MODERATE RISK >11.0 HIGH RISK Performed By: #### C MP, LIPID, TSH ####[facility] [address]sx20[address] [place], [place] [address]Qw. Slick Broderick Cholesterol [Mass/Vol] 204 mg/dL Critically high <=200 [facility] Comment on above: Performed By: #### C MP, LIPID, TSH ####[facility] [address]dtgtsggik[address] [place] [id number]. Slick Broderick Cholesterol in HDL [Mass/Vol] 53 mg/dL Normal 40-60 [facility] Comment on above: Performed By: #### C MP, LIPID, TSH ####[facility] Yqatbwmbjl0936 [place] [phone]. Meaganwendie [place]ie Cholesterol in LDL [Mass/Vol] 134.0 mg/dL Normal [facility] Comment on above: Performed By: #### C MP, LIPID, TSH ####[facility] Mbqxsyfgqk4865 [place] [phone]. Slick Broderick Cholesterol.total/Corinne sterol in HDL [Mass ratio] 3.8 {ratio} Normal [facility] Comment on above: Performed By: #### C MP, LIPID, TSH ####[facility] Woflklsglt15[address] [place] [phone]. Slick Broderick HDL NORMAL > or = 60 mg/dl - LOW CARDIOVASCULAR RISK <40 mg/dl - HIGH CARDIOVASCULAR RISK Normal [facility] Comment on above: Performed By: #### C MP, LIPID, TSH ####[facility] Neeoebzlzo6[address] [place] [phone]. Meaganlan Broderick LDL CALC NORMAL SEE BELOW Normal [facility] Comment on above: Result Comment: <100 mg/dl OPTIMAL 100 - 129 mg/dl NEAR OR ABOVE OPTIMAL 130 - 159 mg/dl BORDERLINE HIGH 160 - 189 mg/dl HIGH >190 mg/dl VERY HIGH Performed By: #### C MP, LIPID, TSH ####[facility] [address]aldut[address] [place] [phone]. Slick Broderick Triglyceride [Mass/Vol] 85 mg/dL Normal <=[address] [facility] Comment on above: Performed By: #### C MP, LIPID, TSH ####[facility] Rgbchwcubb5998 [place] [address]Dr. Slick Broderick VLDL CALC 17.0 mg/dL Normal [facility] Comment on above: Performed By: #### C MP, LIPID, TSH ####[facility] Wohczeuoxs55[address] [place] [address]Dr. Slick Broderick PROF 14(COMP METB)on 022 Albumin [Mass/Vol] 3.5 g/dL Normal 3.4-5.0 [facility] Comment on above: Performed By: #### C MP, LIPID, TSH ####[facility] Dretraitan[address] [place] [address]Dr. Slick Broderick Albumin/Globulin [Mass ratio] 0.9 {ratio} Normal [facility] Comment on above: Performed By: #### C MP, LIPID, TSH ####[facility] Girfgtfkpw3281 [place] [address]Dr. Slick Broderick ALP [Catalytic activity/Vol] 93 U/L Normal 46-116 [facility] Comment on above: Performed By: #### C MP, LIPID, TSH ####[facility] Eqlnnywlgp2730 [place] [address]Dr. Slick Broderick ALT [Catalytic activity/Vol] 21 U/L Normal 14-59 [facility] Comment on above: Performed By: #### C MP, LIPID, TSH ####[facility] Evfxoiuttm3365 [place] [address]Dr. Slick Broderick Anion gap [Moles/Vol] 13.7 mmol/L Normal [facility] Comment on above: Performed By: #### C MP, LIPID, TSH ####[facility] Mzvurlnlrk7145 [place] [address]Dr. Slick Broderick AST [Catalytic activity/Vol] 13 U/L Critically low 15-37 [facility] Comment on above: Performed By: #### C MP, LIPID, TSH ####[facility] Yjzsdhjfbw3010 [place] [address]Dr. Slick Broderick Bilirubin [Mass/Vol] 0.4 mg/dL Normal 0.2-1.0 [facility] Comment on above: Performed By: #### C MP, LIPID, TSH ####[facility] Hnvudvghee6547 [place] [address]Dr. Slick Broderick Calcium [Mass/Vol] 9.2 mg/dL Normal 8.5-10.1 [facility] Comment on above: Performed By: #### C MP, LIPID, TSH ####[facility] Sbajwfgxam9921 [place] [address]Dr. Slick Broderick Chloride [Moles/Vol] 96 mmol/L Critically low 98-[address] [facility] Comment on above: Performed By: #### C MP, LIPID, TSH ####[facility] U[address] [place], [place] [address]Dr. Slick Broderick CO2 [Moles/Vol] 27.8 mmol/L Normal 21.0-32.0 [facility] Comment on above: Performed By: #### C MP, LIPID, TSH ####[facility] Rwlzqdxbjj5564 [place] [address]Dr. Slick Broderick Creatinine [Mass/Vol] 1.52 mg/dL Critically high 0.55-1.02 [facility] Comment on above: Performed By: #### C MP, LIPID, TSH ####[facility] Pqbptydruw8677 [place] [address]Dr. Slick Broderick EGFR-AF OMANI 41 mL/min/1.73m2 Critically low >=[address] [facility] Comment on above: Performed By: #### C MP, LIPID, TSH ####[facility] Bavzoklddt7049 [place] [address]Dr. Slick Broderick EGFR-NON AF OMANI 34 mL/min/1.73m2 Critically low >=[address] [facility] Comment on above: Performed By: #### C MP, LIPID, TSH ####[facility] Vizmvcshmv5519 [place] [id number]. Slick Broderick Globulin (S) [Mass/Vol] 3.7 g/dL Normal T [facility] Comment on above: Performed By: #### C MP, LIPID, TSH ####[facility] Gijjauplts1066 [place] [address]Dr. Slick Broderick Glucose [Mass/Vol] 96 mg/dL Normal 74-106 [facility] Comment on above: Performed By: #### C MP, LIPID, TSH ####[facility] Caiozpocii1456 [place] [address]Dr. Slick Broderick Potassium [Moles/Vol] 4.5 mmol/L Normal 3.5-5.1 [facility] Comment on above: Performed By: #### C MP, LIPID, TSH ####[facility] Qxiyjkfgmu6211 [place] [address]Dr. Slick Broderick Protein [Mass/Vol] 7.2 g/dL Normal 6.4-8.2 [facility] Comment on above: Performed By: #### C MP, LIPID, TSH ####[facility] Idxvbzlxoh[address] [place], [place] [address]Dr. Slick Broderick Sodium [Moles/Vol] 133 mmol/L Critically low 136-145 [facility] Comment on above: Performed By: #### C MP, LIPID, TSH ####[facility] [address]xlovjdgkr[address] [place], [place] [address]Dr. Slick Broderick Urea nitrogen [Mass/Vol] 37.0 mg/dL Critically high 7.0-18.0 [facility] Comment on above: Performed By: #### C MP, LIPID, TSH ####[facility] Ifmzmfbgjg5744 [place] [address]Dr. Slick Broderick Urea nitrogen/Creatinine [Mass ratio] 24.3 mg/mg Normal [facility] Comment on above: Performed By: #### C MP, LIPID, TSH ####[facility] C[address]xcmewklo[address] [place], [place] [address]Dr. Meaganlan Broderick TSHon 02-11-2022 TSH 3.993 uIU/mL Critically high 0.358-3.740 [facility] Comment on above: Performed By: #### C MP, LIPID, TSH ####[facility] Fuatypzfin[address] [place] [address]Dr. Slick Broderick PRBC LEUKOREDUCEDon 12-18-19 PRBC LEUKOREDUCED Normal [facility] Comment on above: Performed By: #### P RBC ####[facility] Njqbpplans3570 [place] [address]Dr. Slick Broderick PRBC LEUKOREDUCED Cross Match Result Compatible Unit Blood Type O Pos Unit Number [id number] Status Information Transfused Product ID Red Blood Cells Product Code [id number] Normal [facility] Comment on above: Performed By: #### P RBC ####[facility] Juuzzgkams[address] [place] [address]Dr. Slick Broderick H PYLORI ANTIBODY IGGon H. PYLORI IGG ABS 0.18 Index Value Normal 0.00-0.79 [facility] Comment on above: Result Comment: Nega tive <0.80 Equivocal 0.80 - 0.89 Positive >0.89 Performed By: #### H PYLLC ####[facility] [address]ocuh[address]qm[address] [place], [place] [address]Dr. Slick Broderick BNPon 12-14-2021 Natriuretic peptide B (Bld) [Mass/Vol] 846.0 pg/mL Normal <=900.0 [facility] Comment on above: Performed By: #### C MP, BNP ####[facility] [address]zglbfdsqd0168 [place] [address]Dr. Slick Broderick CBC AUTO DIFFon 12-14-2021 BASO # 0.1 103/ul Normal 0.0-0.1 [facility] Comment on above: Performed By: #### C BC ####[facility] Onsmjhtmem3[address] [place] [address]Dr. Slick Broderick Basophils/100 WBC (Bld) 0.7 % Normal 0.2-2.0 [facility] Comment on above: Performed By: #### C BC ####[facility] Qeviqsrcek4[address] [place] [id number]. Slick Broderick EO # 0.3 103/ul Normal 0.0-0.[address] [facility] Comment on above: Performed By: #### C BC ####[facility] Spcesjqbnk2451 [place] [id number]. Slick Broderick Eosinophils/100 WBC (Bld) 4.6 % Normal 0.9-7.[address] [facility] Comment on above: Performed By: #### C BC ####[facility] Jkcrxrtiud8505 [place] [id number]. Slick Broderick Erythrocyte distribution width (RBC) [Ratio] 20.0 % Critically high 11.0-15.0 [facility] Comment on above: Performed By: #### C BC ####[facility] Suueamnejl[address] [place], [place] [address]Dr. Slick Broderick Hematocrit (Bld) [Volume fraction] 29.1 % Critically low 36.0-48.0 [facility] Comment on above: Performed By: #### C BC ####[facility] [address]pefdbzqno11[address] [place] [id number]. Slick Broderick Hemoglobin (Bld) [Mass/Vol] 9.1 g/dL Critically low 12.0-16.0 [facility] Comment on above: Performed By: #### C BC ####[facility] Ooixjyqeno1597 [place] [id number]. Slick Broderick IG # 0.06 10e3/ul Critically high 0.00-0.03 [facility] Comment on above: Performed By: #### C BC ####[facility] Iugwywvdki0821 [place] [id number]. Slick Broderick IG % 0.9 % Critically high 0.0-0.5 [facility] Comment on above: Performed By: #### C BC ####[facility] Jpdjrmhfrf[address] [place], [place] [id number]. Slick Broderick LYMPH # 0.8 103/ul Critically low 1.2-3.8 [facility] Comment on above: Performed By: #### C BC ####[facility] Yqpatnbrzm1400 [place] [id number]. Slick Broderick Lymphocytes/100 WBC (Bld) 11.2 % Critically low 20.5-60.0 [facility] Comment on above: Performed By: #### C BC ####[facility] Xoknndlzjq9715 [place] [id number]. Slick Broderick MANUAL DIFF REQ NO Normal [facility] Comment on above: Performed By: #### C BC ####[facility] Tlhljhyead8156 [place] [phone]. Slick [place] MCH (RBC) [Entitic mass] 30.5 pg Normal 26.7-34.0 [facility] Comment on above: Performed By: #### C BC ####[facility] Zdhexoginn[address] [place], [place] [address]Dr. Slick Davie MCHC (RBC) [Mass/Vol] 31.3 g/dL Normal 29.9-35.2 [facility] Comment on above: Performed By: #### C BC ####[facility] Mggiowmmqw8059 [place] [address]Dr. Meaganwendie Broderick MCV (RBC) [Entitic vol] 97.7 fL Normal 81.0-99.0 [facility] Comment on above: Performed By: #### C BC ####[facility] Wfrtuerbbo[address] [place], [place] [address]Dr. Meaganwendie Davie MONO # 0.7 103/ul Normal 0.3-0.8 [facility] Comment on above: Performed By: #### C BC ####[facility] Zxirfratow[address] [place], [place] [address]Dr. Meaganwendie Broderick Monocytes/100 WBC (Bld) 9.7 % Normal 1.7-12.0 [facility] Comment on above: Performed By: #### C BC ####[facility] Ocvsvjglbb[address] [place], [place] [address]Dr. Slick Broderick NEUT # 4.9 103/ul Normal 1.4-6.5 [facility] Comment on above: Performed By: #### C BC ####[facility] Eolyvglgsk0050 [place] [id number]. Slick Broderick Neutrophils/100 WBC (Bld) 72.9 % Normal 43.0-75.0 [facility] Comment on above: Performed By: #### C BC ####[facility] Jumqbgejaf6787 [place] [id number]. Slick Broderick Platelet mean volume (Bld) [Entitic vol] 8.9 fL Critically low 9.5-13.5 [facility] Comment on above: Performed By: #### C BC ####[facility] Tyzxmbytol8241 [place] [address]Dr. Slick Broderick PLT 239 103/ul Normal 150-450 [facility] Comment on above: Performed By: #### C BC ####[facility] Uduhafyqml6889 [place] [address]Dr. Slick Broderick RBC 2.98 106/ul Critically low 4.20-5.40 [facility] Comment on above: Performed By: #### C BC ####[facility] Ncdovevaje0267 [place] [id number]. Slick Broderick WBC 6.8 103/ul Normal 4.0-11.0 [facility] Comment on above: Performed By: #### C BC ####[facility] Laihvhilbm2886 [place] [address]Dr. Slick Broderick BASO # 0.1 103/ul Normal 0.0-0.1 [facility] Comment on above: Performed By: #### C BC ####[facility] Rnfbqfxlkm0570 [place] [id number]. Slick Broderick Basophils/100 WBC (Bld) 0.9 % Normal 0.2-2.0 [facility] Comment on above: Performed By: #### C BC ####[facility] Zhcuxbqbya5087 [place] [phone]. Slick Broderick EO # 0.3 103/ul Normal 0.0-0.7 [facility] Comment on above: Performed By: #### C BC ####[facility] Lzfifzghcx4169 [place] [phone]. Slick Broderick Eosinophils/100 WBC (Bld) 4.9 % Normal 0.9-7.0 [facility] Comment on above: Performed By: #### C BC ####[facility] Czglvvjolu7496 [place] [phone]. Slick Broderick Erythrocyte distribution width (RBC) [Ratio] 20.3 % Critically high 11.0-15.0 [facility] Comment on above: Performed By: #### C BC ####[facility] Etsxfoukoi8954 [place] [address]Dr. Slick Broderick Hematocrit (Bld) [Volume fraction] 27.6 % Critically low 36.0-48.0 [facility] Comment on above: Performed By: #### C BC ####[facility] [address]shsjixjp[address] [place], [place] [address]Dr. Slick Broderick Hemoglobin (Bld) [Mass/Vol] 8.7 g/dL Critically low 12.0-16.0 [facility] Comment on above: Performed By: #### C BC ####[facility] Deaykinqcg[address] [place], [place] [address]Dr. Slick Broderick IG # 0.05 10e3/ul Critically high 0.00-0.03 [facility] Comment on above: Performed By: #### C BC ####[facility] Icwtpavltl99[address] [place], [place] [address]Dr. Slick Broderick IG % 0.7 % Critically high 0.0-0.5 [facility] Comment on above: Performed By: #### C BC ####[facility] Pgyzmndycy[address] [place], [place] [address]Dr. Slick Broderick LYMPH # 0.9 103/ul Critically low 1.2-3.8 [facility] Comment on above: Performed By: #### C BC ####[facility] Tdcusetrtj[address] [place], [place] [address]Dr. Slick Broderick Lymphocytes/100 WBC (Bld) 13.1 % Critically low 20.5-60.[address] [facility] Comment on above: Performed By: #### C BC ####[facility] Mnlugsflat9445 [place] [phone]. Slick Broderick MANUAL DIFF REQ NO Normal [facility] Comment on above: Performed By: #### C BC ####[facility] Quqrzxjgdn9550 [place] [phone]. Slick Broderick MCH (RBC) [Entitic mass] 31.0 pg Normal 26.7-34.0 [facility] Comment on above: Performed By: #### C BC ####[facility] Aotfyostpo3020 [place] [phone]. Slick Broderick MCHC (RBC) [Mass/Vol] 31.5 g/dL Normal 29.9-35.2 [facility] Comment on above: Performed By: #### C BC ####[facility] Ygtirgdnhk0330 [place] [address]Dr. Slick Broderick MCV (RBC) [Entitic vol] 98.2 fL Normal 81.0-99.0 [facility] Comment on above: Performed By: #### C BC ####[facility] Apyrgrmjix[address] [place], [place] [phone]. Slick Broderick MONO # 0.8 103/ul Normal 0.3-0.8 [facility] Comment on above: Performed By: #### C BC ####[facility] Vynboudgyl[address] [place], [place] [address]Dr. Slick Broderick Monocytes/100 WBC (Bld) 11.4 % Normal 1.7-12.0 [facility] Comment on above: Performed By: #### C BC ####[facility] Mjefvxjybs0758 [place] [phone]. Slick Broderick NEUT # 4.8 103/ul Normal 1.4-6.5 [facility] Comment on above: Performed By: #### C BC ####[facility] Ynokoqkwzf5443 [place] [phone]. Slick Broderick Neutrophils/100 WBC (Bld) 69.0 % Normal 43.0-75.0 [facility] Comment on above: Performed By: #### C BC ####[facility] Xzbvvrkkzs2327 [place] [address]Dr. Slick Broderick Platelet mean volume (Bld) [Entitic vol] 9.3 fL Critically low 9.5-13.5 [facility] Comment on above: Performed By: #### C BC ####[facility] Mkxccjeyeg3170 [place] [address]Dr. Slick Broderick PLT 229 103/ul Normal 150-450 [facility] Comment on above: Performed By: #### C BC ####[facility] Dgejwinose9777 [place] [address]Dr. Slick Broderick RBC 2.81 106/ul Critically low 4.20-5.40 [facility] Comment on above: Performed By: #### C BC ####[facility] Ehhqpaacin9184 [place] [address]Dr. Slick Broderick WBC 7.0 103/ul Normal 4.0-11.0 [facility] Comment on above: Performed By: #### C BC ####[facility] Roelwlbysi0332 [place] [address]DrEmma Broderick POINT OF CARE GLUCOSEon Glucose [Mass/Vol] 255 mg/dL Critically high 74-106 [facility] Comment on above: Performed By: #### P OCGLUC ####[facility] Qrsouiskwk0392 [place] [address]DrEmma Broderick PROF 14(COMP METB)on 022 Albumin [Mass/Vol] 2.3 g/dL Critically low 3.4-5.0 [facility] Comment on above: Performed By: #### C MP, BNP ####[facility] Pvxjfqeyuv0546 [place] [address]DrEmma Broderick Albumin/Globulin [Mass ratio] 0.6 {ratio} Normal [facility] Comment on above: Performed By: #### C MP, BNP ####[facility] Pqqakeyman4296 [place] [address]DrEmma Broderick ALP [Catalytic activity/Vol] 94 U/L Normal 46-116 [facility] Comment on above: Performed By: #### C MP, BNP ####[facility] Doofixxumu[address] [place], [place] [address]Dr. Meaganwendie Davie ALT [Catalytic activity/Vol] 17 U/L Normal 14-59 [facility] Comment on above: Performed By: #### C MP, BNP ####[facility] Uhuqodemjy[address] [place], [place] [address]Dr. Slick Broderick Anion gap [Moles/Vol] 11.6 mmol/L Normal [facility] Comment on above: Performed By: #### C MP, BNP ####[facility] Tktamfsmyu[address] [place], [place] [address]Dr. Slick Broderick AST [Catalytic activity/Vol] 13 U/L Critically low 15-37 [facility] Comment on above: Performed By: #### C MP, BNP ####[facility] Avejhcimuh[address] [place], [place] [address]Dr. Slick Broderick Bilirubin [Mass/Vol] 0.3 mg/dL Normal 0.2-1.0 [facility] Comment on above: Performed By: #### C MP, BNP ####[facility] Qodudizmay18[address] [place], [place] [address]Dr. Slick Broderick Calcium [Mass/Vol] 7.9 mg/dL Critically low 8.5-10.1 [facility] Comment on above: Performed By: #### C MP, BNP ####[facility] Hkcelqujls[address] [place], [place] [address]Dr. Slick Broderick Chloride [Moles/Vol] 104 mmol/L Normal 98-107 [facility] Comment on above: Performed By: #### C MP, BNP ####[facility] Sexzjnewlx96[address] [place], [place] [address]Dr. Slick Broderick CO2 [Moles/Vol] 25.1 mmol/L Normal 21.0-32.0 [facility] Comment on above: Performed By: #### C MP, BNP ####[facility] Hierbjdppw[address] [place], [place] [address]Dr. Slick Broderick Creatinine [Mass/Vol] 1.64 mg/dL Critically high 0.55-1.02 [facility] Comment on above: Performed By: #### C MP, BNP ####[facility] Datiufblen1402 [place] [address]Dr. Slick Broderick EGFR-AF OMANI 37 mL/min/1.73m2 Critically low >=60 [facility] Comment on above: Performed By: #### C MP, BNP ####[facility] Orrdzdzpav7960 [place] [address]Dr. Slick Broderick EGFR-NON AF OMANI 31 mL/min/1.73m2 Critically low >=60 [facility] Comment on above: Performed By: #### C MP, BNP ####[facility] Ivhcntlmim6571 [place] [address]Dr. Slick Broderick Globulin (S) [Mass/Vol] 3.6 g/dL Normal T [facility] Comment on above: Performed By: #### C MP, BNP ####[facility] Kuzfwvhlae7406 [place] [address]Dr. Slick Broderick Glucose [Mass/Vol] 100 mg/dL Normal 74-106 [facility] Comment on above: Performed By: #### C MP, BNP ####[facility] Gmzruxzcil8373 [place] [address]Dr. Slick Broderick Potassium [Moles/Vol] 4.7 mmol/L Normal 3.5-5.1 [facility] Comment on above: Performed By: #### C MP, BNP ####[facility] Hrnezqsveo7835 [place] [address]Dr. Slick Broderick Protein [Mass/Vol] 5.9 g/dL Critically low 6.4-8.2 [facility] Comment on above: Performed By: #### C MP, BNP ####[facility] Uwenhbsztb6263 [place] [address]Dr. Slick Broderick Sodium [Moles/Vol] 136 mmol/L Normal 136-145 [facility] Comment on above: Performed By: #### C MP, BNP ####[facility] Odamsvvjhy9166 [place] [phone]. Meaganwendie Broderick Urea nitrogen [Mass/Vol] 27.0 mg/dL Critically high 7.0-18.0 [facility] Comment on above: Performed By: #### C MP, BNP ####[facility] Cnjjmaykbx[address] [place], [place] [address]Dr. Slick Broderick Urea nitrogen/Creatinine [Mass ratio] 16.5 mg/mg Normal [facility] Comment on above: Performed By: #### C MP, BNP ####[facility] Mwoxwujywr[address] [place], [place] [address]Dr. Slick Broderick CBC AUTO DIFFon 12-13-2021 BASO # 0.0 103/ul Normal 0.0-0.1 [facility] Comment on above: Performed By: #### C BC ####[facility] Miwucaykon[address] [place], [place] [address]Dr. Slick Broderick Basophils/100 WBC (Bld) 0.5 % Normal 0.2-2.0 [facility] Comment on above: Performed By: #### C BC ####[facility] Drorziisis57[address] [place], [place] [address]Dr. Slick Broderick EO # 0.3 103/ul Normal 0.0-0.7 [facility] Comment on above: Performed By: #### C BC ####[facility] Zazevugvbi97[address] [place], [place] [address]Dr. Slick Broderick Eosinophils/100 WBC (Bld) 4.4 % Normal 0.9-7.[address] [facility] Comment on above: Performed By: #### C BC ####[facility] Xgrvzixlbs[address] [place], [place] [address]Dr. Slick Broderick Erythrocyte distribution width (RBC) [Ratio] 20.5 % Critically high 11.0-15.0 [facility] Comment on above: Performed By: #### C BC ####[facility] Aejjsnbdyx[address] [place], [place] [address]Dr. Slick Broderick Hematocrit (Bld) [Volume fraction] 29.5 % Critically low 36.0-48.[address] [facility] Comment on above: Performed By: #### C BC ####[facility] Ijqhyedwbm1693 [place] [phone]. Slick Broderick Hemoglobin (Bld) [Mass/Vol] 9.3 g/dL Critically low 12.0-16.0 [facility] Comment on above: Result Comment: post transfusion Performed By: #### C BC ####[facility] Rcpbzdztzp7381 [place] [address]DrEmma Slick Broderick IG # 0.07 10e3/ul Critically high 0.00-0.03 [facility] Comment on above: Performed By: #### C BC ####[facility] Quixfqhane9044 [place] [address]DrEmma Slick [place] IG % 0.9 % Critically high 0.0-0.5 [facility] Comment on above: Performed By: #### C BC ####[facility] Nbvafjvwkx5318 [place] [address]DrEmma Slick Davie LYMPH # 0.9 103/ul Critically low 1.2-3.8 [facility] Comment on above: Performed By: #### C BC ####[facility] Cqkfoazdjj1015 [place] [address]DrEmma Slick [place]ie Lymphocytes/100 WBC (Bld) 11.5 % Critically low 20.5-60.[address] [facility] Comment on above: Performed By: #### C BC ####[facility] Ilwjuxyfuh6461 [place] [address]DrEmma Meaganwendie Broderick MANUAL DIFF REQ NO Normal [facility] Comment on above: Performed By: #### C BC ####[facility] Trrhraybdi8289 [place] [phone]. Slick [place] MCH (RBC) [Entitic mass] 30.9 pg Normal 26.7-34.0 [facility] Comment on above: Performed By: #### C BC ####[facility] Qpbpzjpfwz5096 [place] [address]Dr. Slick Davie MCHC (RBC) [Mass/Vol] 31.5 g/dL Normal 29.9-35.2 [facility] Comment on above: Performed By: #### C BC ####[facility] Moehghvdji5601 [place] [phone] Slick Broderick MCV (RBC) [Entitic vol] 98.0 fL Normal 81.0-99.0 [facility] Comment on above: Performed By: #### C BC ####[facility] Lfvslmjben0525 [place] [phone] Slick Davie MONO # 0.6 103/ul Normal 0.3-0.8 [facility] Comment on above: Performed By: #### C BC ####[facility] Uototfcmrc2701 [place] [address]Dr. Meaganwendie Broderick Monocytes/100 WBC (Bld) 8.6 % Normal 1.7-12.0 [facility] Comment on above: Performed By: #### C BC ####[facility] Rkowgojcud[address] [place], [place] [address]Dr. Slick Broderick NEUT # 5.5 103/ul Normal 1.4-6.5 [facility] Comment on above: Performed By: #### C BC ####[facility] Qvklnkabzk63[address] [place], [place] [address]Dr. Meaganwendie Broderick Neutrophils/100 WBC (Bld) 74.1 % Normal 43.0-75.0 [facility] Comment on above: Performed By: #### C BC ####[facility] Rvgjyievnl2826 [place] [address]Dr. Meaganwendie Davie Platelet mean volume (Bld) [Entitic vol] 9.0 fL Critically low 9.5-13.5 [facility] Comment on above: Performed By: #### C BC ####[facility] Yattczbedu2849 [place] [phone]. Slick Broderick PLT 231 103/ul Normal 150-[address] [facility] Comment on above: Performed By: #### C BC ####[facility] Uxijvxohxj8090 [place] [phone] Broderick RBC 3.01 106/ul Critically low 4.20-5.40 [facility] Comment on above: Performed By: #### C BC ####[facility] Klwyihuopv7576 [place] [phone]. Slick Broderick WBC 7.5 103/ul Normal 4.0-11.0 [facility] Comment on above: Performed By: #### C BC ####[facility] Qhovcymkqh3170 [place] [phone]. Slick Broderick BASO # 0.0 103/ul Normal 0.0-0.1 [facility] Comment on above: Performed By: #### C BC ####[facility] Ygcxinwcdr6391 [place] [phone]. Slick Broderick Basophils/100 WBC (Bld) 0.3 % Normal 0.2-2.0 [facility] Comment on above: Performed By: #### C BC ####[facility] Jvdrfqrrvu[address] [place], [place] [address]Dr. Slick Broderick EO # 0.3 103/ul Normal 0.0-0.7 [facility] Comment on above: Performed By: #### C BC ####[facility] Tgaqbqqasc6894 [place] [phone]. Slick Broderick Eosinophils/100 WBC (Bld) 3.8 % Normal 0.9-7.0 [facility] Comment on above: Performed By: #### C BC ####[facility] Nehewlqsnw5444 [place] [phone]. Slick Broderick Erythrocyte distribution width (RBC) [Ratio] 17.4 % Critically high 11.0-15.0 [facility] Comment on above: Performed By: #### C BC ####[facility] Hkizqmmywg8543 [place] [phone]. Slick Broderick Hematocrit (Bld) [Volume fraction] 22.4 % Critically low 36.0-48.0 [facility] Comment on above: Result Comment: Test Repeated Critical Value Verified Performed By: #### C BC ####[facility] Viobcbjfnz5953 [place] [address]Dr. Slick Broderick Hemoglobin (Bld) [Mass/Vol] 7.1 g/dL Critically low 12.0-16.[address] [facility] Comment on above: Performed By: #### C BC ####[facility] Oojdvdwszm6542 [place] [address]DrEmma Broderick IG # 0.06 10e3/ul Critically high 0.00-0.03 [facility] Comment on above: Performed By: #### C BC ####[facility] Tdmzgkrtzr6453 [place] [address]DrEmma Broderick IG % 0.8 % Critically high 0.0-0.5 [facility] Comment on above: Performed By: #### C BC ####[facility] Zvsazlrcuq[address] [place], [place] [address]DrEmma Broderick LYMPH # 0.8 103/ul Critically low 1.2-3.8 [facility] Comment on above: Performed By: #### C BC ####[facility] Swgjvcqfli9[address] [place], [place] [address]DrEmma Broderick Lymphocytes/100 WBC (Bld) 10.7 % Critically low 20.5-60.0 [facility] Comment on above: Performed By: #### C BC ####[facility] Fcefcooidb106[address] [place], [place] [address]DrEmma Meaganwendie Broderick MANUAL DIFF REQ NO Normal [facility] Comment on above: Performed By: #### C BC ####[facility] Nartgeltwp[address] [place], [place] [address]DrEmma Broderick MCH (RBC) [Entitic mass] 32.3 pg Normal 26.7-34.[address] [facility] Comment on above: Performed By: #### C BC ####[facility] Fpwgltzcov0424[address] [place], [place] [address]DrEmma Broderick MCHC (RBC) [Mass/Vol] 31.7 g/dL Normal 29.9-35.[address] [facility] Comment on above: Performed By: #### C BC ####[facility] [address]xxwzhbyxh7[address] [place], [place] [address]DrEmma Broderick MCV (RBC) [Entitic vol] 101.8 fL Critically high 81.0-[address] [facility] Comment on above: Performed By: #### C BC ####[facility] Rwgrmmotwj[address] [place], [place] [address]DrEmma Slick Broderick MONO # 0.8 103/ul Normal 0.3-0.8 [facility] Comment on above: Performed By: #### C BC ####[facility] Nkaeskifvq89[address] [place], [place] [address]Dr. Slick Broderick Monocytes/100 WBC (Bld) 10.7 % Normal 1.7-12.0 [facility] Comment on above: Performed By: #### C BC ####[facility] Mnxczvwihf7[address] [place], [place] [address]Dr. Slick Broderick NEUT # 5.6 103/ul Normal 1.4-6.[address] [facility] Comment on above: Performed By: #### C BC ####[facility] Vhjjrjtili388[address] [place], [place] [address]Dr. Slick Broderick Neutrophils/100 WBC (Bld) 73.7 % Normal 43.0-75.[address] [facility] Comment on above: Performed By: #### C BC ####[facility] Bfmxhkwvaz7764[address] [place], [place] [address]DrEmma Slick Broderick Platelet mean volume (Bld) [Entitic vol] 9.4 fL Critically low 9.5-13.5 [facility] Comment on above: Performed By: #### C BC ####[facility] Ikqjkqfrkc[address] [place], [place] [address]Dr. Slick Davie PLT 209 103/ul Normal 150-[address] [facility] Comment on above: Performed By: #### C BC ####[facility] Byythpajfb[address] [place], [place] [address]Dr. Meaganwendie Davie RBC 2.20 106/ul Critically low 4.20-5.40 [facility] Comment on above: Performed By: #### C BC ####[facility] Pvtprkedhi[address] [place], [place] [address]Dr. Meaganwendie Davie WBC 7.6 103/ul Normal 4.0-11.0 [facility] Comment on above: Performed By: #### C BC ####[facility] Kaxbtvogyw056[address] [place], [place] [address]Dr. Slick Broderick PROF 14(COMP METB)on 022 Albumin [Mass/Vol] 2.1 g/dL Critically low 3.4-5.0 [facility] Comment on above: Performed By: #### C MP ####[facility] Lkrdggzhts[address] [place], [place] [address]Dr. Slick Broderick Albumin/Globulin [Mass ratio] 0.7 {ratio} Normal [facility] Comment on above: Performed By: #### C MP ####[facility] Nrczcgljpq09[address] [place], [place] [address]Dr. Slick Broderick ALP [Catalytic activity/Vol] 83 U/L Normal 46-116 [facility] Comment on above: Performed By: #### C MP ####[facility] Yhhfodhhwn7[address] [place], [place] [address]Dr. Slick Broderick ALT [Catalytic activity/Vol] 12 U/L Critically low 14-59 [facility] Comment on above: Performed By: #### C MP ####[facility] Etyycwmgex28[address] [place], [place] [address]Dr. Slick Broderick Anion gap [Moles/Vol] 14.0 mmol/L Normal [facility] Comment on above: Performed By: #### C MP ####[facility] Zipctxbwak85[address] [place], [place] [address]Dr. Slick Broderick AST [Catalytic activity/Vol] 13 U/L Critically low 15-37 [facility] Comment on above: Performed By: #### C MP ####[facility] Tvmjkisvqn[address] [place], [place] [address]Dr. Slick Broderick Bilirubin [Mass/Vol] 0.3 mg/dL Normal 0.2-1.0 [facility] Comment on above: Performed By: #### C MP ####[facility] Fcfhwegloo5[address] [place], [place] [address]Dr. Slick Broderick Calcium [Mass/Vol] 7.4 mg/dL Critically low 8.5-10.[address] [facility] Comment on above: Performed By: #### C MP ####[facility] [address]fezbnzhll[address] [place], [place] [address]Dr. Slick Broderick Chloride [Moles/Vol] 105 mmol/L Normal 98-107 [facility] Comment on above: Performed By: #### C MP ####[facility] Pdjueyjcpx[address] [place], [place] [address]Dr. Slick Broderick CO2 [Moles/Vol] 23.0 mmol/L Normal 21.0-32.0 [facility] Comment on above: Performed By: #### C MP ####[facility] Amcwltpuwh[address] [place], [place] [address]Dr. Slick Broderick Creatinine [Mass/Vol] 1.80 mg/dL Critically high 0.55-1.02 [facility] Comment on above: Performed By: #### C MP ####[facility] Lrwgjignhy[address] [place], [place] [address]Dr. Slick Broderick EGFR-AF OMANI 33 mL/min/1.73m2 Critically low >=60 [facility] Comment on above: Performed By: #### C MP ####[facility] Glutjrpxmb0064[address] [place], [place] [address]Dr. Slick Broderick EGFR-NON AF OMANI 28 mL/min/1.73m2 Critically low >=60 [facility] Comment on above: Performed By: #### C MP ####[facility] Wprlsbbjdt9[address] [place], [place] [address]Dr. Slick Broderick Globulin (S) [Mass/Vol] 3.2 g/dL Normal T [facility] Comment on above: Performed By: #### C MP ####[facility] Kfgjfudoxa[address] [place], [place] [address]Dr. Slick Broderick Glucose [Mass/Vol] 85 mg/dL Normal 74-106 [facility] Comment on above: Performed By: #### C MP ####[facility] Bffwgdqeai[address] [place], [place] [address]Dr. Slick Broderick Potassium [Moles/Vol] 5.0 mmol/L Normal 3.5-5.1 [facility] Comment on above: Performed By: #### C MP ####[facility] Jnxcspzzbt044[address] [place], [place] [address]Dr. Slick Broderick Protein [Mass/Vol] 5.3 g/dL Critically low 6.4-8.[address] [facility] Comment on above: Performed By: #### C MP ####[facility] Amqoepjhhq[address] [place], [place] [address]Dr. Slick Broderick Sodium [Moles/Vol] 137 mmol/L Normal 136-145 [facility] Comment on above: Performed By: #### C MP ####[facility] Bkugxxogap[address] [place], [place] [address]Dr. Slick Broderick Urea nitrogen [Mass/Vol] 30.0 mg/dL Critically high 7.0-18.0 [facility] Comment on above: Performed By: #### C MP ####[facility] Teutxicbvh[address] [place], [place] [address]Dr. Slick Broderick Urea nitrogen/Creatinine [Mass ratio] 16.7 mg/mg Normal [facility] Comment on above: Performed By: #### C MP ####[facility] Zptdkpeepd7[address] [place], [place] [address]Dr. Slick Broderick ABO RH RETYPEon 12-12-2021 ABO and Rh group Nom (Bld) DONE Normal [facility] Comment on above: Performed By: #### R ETYPE ####[facility] Rhixfawnhk298[address] [place], [place] [address]Dr. Slick Broderick BNPon 12-12-2021 Natriuretic peptide B (Bld) [Mass/Vol] 952.0 pg/mL Critically high <=900.[address] [facility] Comment on above: Performed By: #### B DEPARTMENT OF NATURAL RESOURCES OFFICER, CRP, CMP ####[facility] Txjcsvxmar25[address] [place], [place] [address]Dr. Slick Broderick CBC AUTO DIFFon 12-12-2021 BASO # 0.0 103/ul Normal 0.0-0.1 [facility] Comment on above: Performed By: #### C BC ####[facility] [address]chs[address] [place] [id number]. Slick Broderick Basophils/100 WBC (Bld) 0.2 % Normal 0.2-2.0 [facility] Comment on above: Performed By: #### C BC ####[facility] Epbxayohtm0191 [place] [id number]. Slick Broderick EO # 0.2 103/ul Normal 0.0-0.7 [facility] Comment on above: Performed By: #### C BC ####[facility] Oremnptppe[address] [place] [address]Dr. Slick Broderick Eosinophils/100 WBC (Bld) 2.6 % Normal 0.9-7.0 [facility] Comment on above: Performed By: #### C BC ####[facility] Aojfifwzvc334[address] [place], [place] [address]Dr. Slick Broderick Erythrocyte distribution width (RBC) [Ratio] 17.2 % Critically high 11.0-15.0 [facility] Comment on above: Performed By: #### C BC ####[facility] Wwjsvgkkwz[address] [place], [place] [address]Dr. Slick Broderick Hematocrit (Bld) [Volume fraction] 24.0 % Critically low 36.0-48.0 [facility] Comment on above: Performed By: #### C BC ####[facility] Uiudkbdusd[address] [place], [place] [address]Dr. Slick Broderick Hemoglobin (Bld) [Mass/Vol] 7.7 g/dL Critically low 12.0-16.0 [facility] Comment on above: Performed By: #### C BC ####[facility] Eullkcyleq[address] [place], [place] [address]Dr. Slick Broderick IG # 0.05 10e3/ul Critically high 0.00-0.03 [facility] Comment on above: Performed By: #### C BC ####[facility] Flcsclrrxv[address] [place], [place] [id number]. Slick Broderick IG % 0.5 % Normal 0.0-0.5 [facility] Comment on above: Performed By: #### C BC ####[facility] Evkyegipbl7059 [place] [id number]. Slick Broderick LYMPH # 0.7 103/ul Critically low 1.2-3.8 [facility] Comment on above: Performed By: #### C BC ####[facility] Uakluwklii9439 [place] [id number]. Slick Broderick Lymphocytes/100 WBC (Bld) 7.7 % Critically low 20.5-60.0 [facility] Comment on above: Performed By: #### C BC ####[facility] Rpkfirawzv0153 [place] [id number]. Slick Broderick MANUAL DIFF REQ NO Normal [facility] Comment on above: Performed By: #### C BC ####[facility] Dzqqxjezys9917 [place] [id number]. Slick Broderick MCH (RBC) [Entitic mass] 32.6 pg Normal 26.7-34.0 [facility] Comment on above: Performed By: #### C BC ####[facility] Eoduhczxgy4755 [place] [id number]. Slick Broderick MCHC (RBC) [Mass/Vol] 32.1 g/dL Normal 29.9-35.2 [facility] Comment on above: Performed By: #### C BC ####[facility] Pgooyojugg5546 [place] [id number] Broderick MCV (RBC) [Entitic vol] 101.7 fL Critically high 81.0-99 .0 [facility] Comment on above: Performed By: #### C BC ####[facility] Jtufeupoyp1942 [place] [id number] Broderick MONO # 0.8 103/ul Normal 0.3-0.8 [facility] Comment on above: Performed By: #### C BC ####[facility] Dvjfguqiuh5560 [place] [id number] Broderick Monocytes/100 WBC (Bld) 8.5 % Normal 1.7-12.0 [facility] Comment on above: Performed By: #### C BC ####[facility] Ticortklph3360 [place] [address]Dr. Slick Broderick NEUT # 7.3 103/ul Critically high 1.4-6.5 [facility] Comment on above: Performed By: #### C BC ####[facility] Qodfsnxgiv2487 [place] [address]Dr. Slick Broderick Neutrophils/100 WBC (Bld) 80.5 % Critically high 43.0-75.0 [facility] Comment on above: Performed By: #### C BC ####[facility] Ahkuwickto8285 [place] [address]Dr. Slick Broderick Platelet mean volume (Bld) [Entitic vol] 8.9 fL Critically low 9.5-13.5 [facility] Comment on above: Performed By: #### C BC ####[facility] Ynqmfxubme5892 [place] [address]Dr. Slick Broderick PLT 204 103/ul Normal 150-450 [facility] Comment on above: Performed By: #### C BC ####[facility] Uwvavblzso0127 [place] [address]Dr. Slick Broderick RBC 2.36 106/ul Critically low 4.20-5.40 [facility] Comment on above: Performed By: #### C BC ####[facility] Wexcsvrbve2660 [place] [address]Dr. Slick Broderick WBC 9.1 103/ul Normal 4.0-11.[address] [facility] Comment on above: Performed By: #### C BC ####[facility] Scgqpvwnxw8914 [place] [id number]. Slick [place] CBC W MANUAL DIFFon 12-13-19 22 ATYPICAL LYMPH # Normal [facility] Comment on above: Performed By: #### C BCMAN ####[facility] Qekxxsjktj[address] [place] [address]Dr. Slick Broderick ATYPICAL LYMPH % Normal [facility] Comment on above: Performed By: #### C BCMAN ####[facility] Lreohuhxtz8840 [place] [id number]. Yilan Broderick BAND # Normal 0.0-0.[address] [facility] Comment on above: Performed By: #### C AIDEN ####[facility] Rpcauelozg2442 [place] [address]Dr. Yilan Broderick BAND % Normal 0-[address] [facility] Comment on above: Performed By: #### C AIDEN ####[facility] Jayntsqmjk2251 [place] [address]Dr. Yilan Broderick BASOM # 0.00 103/ul Normal 0.00-0.[address] [facility] Comment on above: Performed By: #### C AIDEN ####[facility] V[address]fpvba[address] [place], [place] [address]Dr. Yilan Broderick BASOM % 0.0 % Critically low 0.2-2.0 [facility] Comment on above: Performed By: #### C AIDEN ####[facility] Cdhwxokmwe[address] [place], [place] [address]Dr. Yilan Borderick BLAST # Normal [facility] Comment on above: Performed By: #### C AIDEN ####[facility] Mejxicnpep[address] [place], [place] [address]Dr. Yilan Broderick BLAST % Normal [facility] Comment on above: Performed By: #### C AIDEN ####[facility] Vwqjhkzdwj3610 [place] [address]Dr. Yilan Broderick CORRECTED WBC Normal 4.0-11.0 [facility] Comment on above: Performed By: #### C AIDEN ####[facility] Bznlwmevpu2563 [place] [address]Dr. Yilan Broderick EOS # 0.35 103/ul Normal 0.00-0.[address] [facility] Comment on above: Performed By: #### C AIDEN ####[facility] Sfsbuxyzlx[address] [place], [place] [address]Dr. Yilan Broderick EOS% 3.0 % Normal 0.9-7.[address] [facility] Comment on above: Performed By: #### C AIDEN ####[facility] Iczjzzgljr6141 [place], [place] [address]Uy. Slick Broderick HCT 21.4 % Critically low 36.0-48.0 [facility] Comment on above: Result Comment: TEST REPEATED CRITICAL VALUE VERIFIED Performed By: #### C AIDEN ####[facility] Lghsfaxlfi1666 [place], [place] [address]Uu. Slick Broderick HGB 6.6 g/dl Critically low 12.0-16.0 [facility] Comment on above: Result Comment: TEST REPEATED CRITICAL VALUE VERIFIED Performed By: #### C AIDEN ####[facility] Cuhniakanf6273 [place] [id number]. Slick Broderick LYMPHM # 0.59 103/ul Critically low 1.20-3.80 [facility] Comment on above: Performed By: #### C AIDEN ####[facility] Czqceklxeq1103 [place] [id number]. Slick Broderick LYMPHM% 5.0 % Critically low 20.5-60.0 [facility] Comment on above: Performed By: #### C AIDEN ####[facility] Msjlfturjd7665 [place] [phone]. Slick Broderick MCH 33.2 pg Normal 26.7-34.0 [facility] Comment on above: Performed By: #### C AIDEN ####[facility] Zakiosawwx6589 [place] [phone]. Slick Broderick MCHC 30.8 g/dl Normal 29.9-35.[address] [facility] Comment on above: Performed By: #### C AIDEN ####[facility] Dnbhguljpx0392 [place] [phone]. Slick Broderick MCV 107.5 fL Critically high 81.0-99.0 [facility] Comment on above: Result Comment: RBCS APPEAR MACROCYTIC ON PERIPHERAL SMEAR Performed By: #### C AIDEN ####[facility] Kinmczreyt7929 [place] [phone]. Slick Broderick METAMYELOCYTE # Normal [facility] Comment on above: Performed By: #### C AIDEN ####[facility] Mlcogujydk4836 [place] [phone]. Slick Broderick METAMYELOCYTE % Normal [facility] Comment on above: Performed By: #### C AIDEN ####[facility] Wemxpgfkhm5286 [place] [phone]. Slick Broderick MONOM# 0.71 103/ul Normal 0.30-0.80 [facility] Comment on above: Performed By: #### C AIDEN ####[facility] Gskhcqaucv5418 [place] [id number]. Slick Broderick MONOM% 6.0 % Normal 1.7-12.0 [facility] Comment on above: Performed By: #### C AIDEN ####[facility] Dvviffmgak0112 [place] [id number]. Slick Broderick MPV 9.2 fL Critically low 9.5-13.5 [facility] Comment on above: Performed By: #### C AIDEN ####[facility] Qyjqiopkmv1474 [place] [phone]. Slick Broderick MYELOCYTE # Normal [facility] Comment on above: Performed By: #### Carlos Manuel WOLFE ####[facility] Imkprypirq5789 [place] [phone]. Slick Broderick MYELOCYTE % Normal [facility] Comment on above: Performed By: #### Carlos Manuel WOLFE ####[facility] Dtdtcjcxzu1458 [place] [phone]. Slick Broderick NRBC Normal [facility] Comment on above: Performed By: #### C AIDEN ####[facility] Ydjzzliizx6797 [place] [phone]. Slick Broderick PLT 232 103/ul Normal 150-[address] [facility] Comment on above: Performed By: #### C AIDEN ####[facility] Rcdmcorlpp5977 [place] [phone]. Slick Broderick RBC 1.99 106/ul Critically low 4.20-5.40 [facility] Comment on above: Performed By: #### C BCMAN ####[facility] Shvubogies[address] [place], [place] [address]Ts. Slick Broderick RDW 15.6 % Critically high 11.0-15.0 [facility] Comment on above: Performed By: #### C ELIZABETHMAN ####[facility] Szneyppasv5290 [place], [place] [address]Qt. Slick Broderick SEG # 10.15 103/ul Critically high 1.40-6.50 [facility] Comment on above: Performed By: #### C ELIZABETHMAN ####[facility] Xpsacayasp6916 [place], [place] [address]Vj. Slick Broderick SEG % 86.0 % Critically high 43.0-75.0 [facility] Comment on above: Performed By: #### C BCMAN ####[facility] Uzmybxfqcb3190 [place], [place] [address]Bs. Slick Broderick WBC 11.8 103/ul Critically high 4.0-11.0 [facility] Comment on above: Performed By: #### C AIDEN ####[facility] Jxzmqhptge7014 [place] [phone]. Slick Broderick CRPon 12-12-2021 CRP 10.1 mg/dL Critically high <=1.0 [facility] Comment on above: Performed By: #### B DEPARTMENT OF NATURAL RESOURCES OFFICER, CRP, CMP ####[facility] Dhwigubuva3157 [place], [place] [address]Pa. Slick Broderick CULTURE BLOODon 12-12-2021 Microscopic examination of blood, culture Culture Observations: NO GROWTH AT 5 DAYS. [facility] Comment on above: Performed By: #### B LDCX2 ####[facility] Yqdgmuhgfu5056 [place] [phone]. Slick Broderick Microscopic examination of blood, culture Culture Observations: NO GROWTH AT 5 DAYS. Normal [facility] Comment on above: Performed By: #### B LDCX1 ####[facility] Gdoelemxlr4665 [place] [phone]. Slick Broderick CULTURE URINEon 12-12-2021 CULTURE URINE Culture Observations: NO GROWTH. Normal [facility] Comment on above: Performed By: #### U RCX ####[facility] Ntbjnavphg0961 [place] [address]Dr. Slick Broderick Covid-19 PCR (CVDTB)on SARS-CoV-2 (COVID-19) [...] for this test is supported by the Pediatric Sports Medicine Specialist of Health and Human Service's declaration that [...] By: #### C VDTBH ####[facility] Hokuelxoha[address] [place], [place] [address]Dr. Slick Broderick ER URINE PROFILEon 2 Bilirubin Ql (U) Negative Normal NEGATIVE [facility] Comment on above: Performed By: #### U MICRO, ERUR ####[facility] Omcormsbpb[address] [place], [place] [address]Dr. Slick Broderick Clarity (U) CLOUDY Abnormal CLEAR [facility] Comment on above: Performed By: #### U MICRO, ERUR ####[facility] Veohoumynd[address] [place], [place] [address]Dr. Slick Broderick Color (U) LT. YELLOW Normal YELLOW [facility] Comment on above: Performed By: #### U MICRO, ERUR ####[facility] Kjwqsgoxxv[address] [place], [place] [address]Dr. Slick SALAGDO A micrscopic examination will be performed if indicated. Normal [facility] Comment on above: Performed By: #### U MICRO, ERUR ####[facility] Qpuubkwyon3204 [place] [address]Dr. Slick Broderick Glucose Ql (U) Negative Normal NEGATIVE [facility] Comment on above: Performed By: #### U MICRO, ERUR ####[facility] Glshymwouo1049 [place] [address]Dr. Meaganwendie [place] Hemoglobin Ql (U) Negative Normal NEGATIVE [facility] Comment on above: Performed By: #### U MICRO, ERUR ####[facility] Oxtzpxqlso[address] [place], [place] [address]Dr. Slick Broderick Ketones Ql (U) Negative Normal NEGATIVE [facility] Comment on above: Performed By: #### U MICRO, ERUR ####[facility] Gknafcbefw92[address] [place], [place] [address]Dr. Slick Broderick LEUKOCYTES MODERATE Abnormal NEGATIVE [facility] Comment on above: Performed By: #### U MICRO, ERUR ####[facility] Uubnagocwt[address] [place], [place] [address]Dr. Meaganwendie [place] Nitrite Ql (U) Negative Normal NEGATIVE [facility] Comment on above: Performed By: #### U MICRO, ERUR ####[facility] Dottmamqtq[address] [place], [place] [address]Dr. Slick Broderick pH (U) 6.0 [pH] Normal 5-[address] [facility] Comment on above: Performed By: #### U MICRO, ERUR ####[facility] Jnnabumafh1260 [place] [address]Dr. Slick Broderick SPEC GRAVITY 1.010 Normal 1.005-<=1.0 25 [facility] Comment on above: Performed By: #### U MICRO, ERUR ####[facility] Erxgtjmruj1145 [place] [address]Dr. Slick Broderick UA PROTEIN Negative Normal NEGATIVE/ TRACE [facility] Comment on above: Performed By: #### U MICRO, ERUR ####[facility] Iokxvcjuau7899 [place] [address]Dr. Slick Broderick UR MICRO IND INDICATED Normal [facility] Comment on above: Performed By: #### U MICRO, ERUR ####[facility] Ndsttobhhy9468 [place] [address]Dr. Slick Broderick Urobilinogen Qn (U) 0.2 {Hiren'U}/dL Normal 0.2 - 1. [address] [facility] Comment on above: Performed By: #### U MICRO, ERUR ####[facility] Qeuszkgzkt7399 [place] [address]Dr. Slick Broderick IRON AND TIBCon 12-12-2021 % SATURATION 7.0 % Normal [facility] Comment on above: Performed By: #### B 12FOL, FETIBC ####[facility] Hbevdpszvm5593 [place] [address]Dr. Slick Broderick Iron [Mass/Vol] 18.0 ug/dL Critically low 50.0-170.0 [facility] Comment on above: Performed By: #### B 12FOL, FETIBC ####[facility] Rnzabxovst[address] [place], [place] [address]Dr. Slick Broderick TIBC DIRECT 257.0 ug/dL Normal 250.0-450.0 [facility] Comment on above: Performed By: #### B 12FOL, FETIBC ####[facility] Rorprdbzan[address] [place], [place] [address]Dr. Slick Broderick LACTATE/LACTIC ACIDon 2021 Lactate [Moles/Vol] 0.7 mmol/L Normal 0.4-1.9 [facility] Comment on above: Performed By: #### L ACT ####[facility] [address]sxswaujny[address] [place], [place] [address]Dr. Slick Broderick OCC BLD IMMUNO SCREENon OCCULT BLOOD Negative Normal NEGATIVE [facility] Comment on above: Performed By: #### O BSCRN ####[facility] Vokcmynbsp[address] [place], [place] [address]Dr. Slick Broderick PROF 14(COMP METB)on 022 Albumin [Mass/Vol] 2.6 g/dL Critically low 3.4-5.0 [facility] Comment on above: Performed By: #### B DEPARTMENT OF NATURAL RESOURCES OFFICER, CRP, CMP ####[facility] Wyvfyrwzbo2553 [place] [address]Dr. Slick Broderick Albumin/Globulin [Mass ratio] 0.7 {ratio} Normal [facility] Comment on above: Performed By: #### B DEPARTMENT OF NATURAL RESOURCES OFFICER, CRP, CMP ####[facility] Sqrwtjgfzg4320 [place] [address]Dr. Slick Broderick ALP [Catalytic activity/Vol] 105 U/L Normal 46-116 [facility] Comment on above: Performed By: #### B DEPARTMENT OF NATURAL RESOURCES OFFICER, CRP, CMP ####[facility] Ujfskwdwyb[address] [place], [place] [address]Dr. Slick Broderick ALT [Catalytic activity/Vol] 16 U/L Normal 14-59 [facility] Comment on above: Performed By: #### B DEPARTMENT OF NATURAL RESOURCES OFFICER, CRP, CMP ####[facility] Eflofmhmja[address] [place], [place] [address]Dr. Slick Broderick Anion gap [Moles/Vol] 11.7 mmol/L Normal [facility] Comment on above: Performed By: #### B DEPARTMENT OF NATURAL RESOURCES OFFICER, CRP, CMP ####[facility] Gsvjacuiwf9[address] [place], [place] [address]Dr. Slick Broderick AST [Catalytic activity/Vol] 11 U/L Critically low 15-37 [facility] Comment on above: Performed By: #### B DEPARTMENT OF NATURAL RESOURCES OFFICER, CRP, CMP ####[facility] Knuvnsncls[address] [place], [place] [address]Dr. Slick Broderick Bilirubin [Mass/Vol] 0.3 mg/dL Normal 0.2-1.0 [facility] Comment on above: Performed By: #### B DEPARTMENT OF NATURAL RESOURCES OFFICER, CRP, CMP ####[facility] Lktjqfjmfj48[address] [place], [place] [address]Dr. Slick Broderick Calcium [Mass/Vol] 7.8 mg/dL Critically low 8.5-10.1 [facility] Comment on above: Performed By: #### B DEPARTMENT OF NATURAL RESOURCES OFFICER, CRP, CMP ####[facility] Fltzhzyena4220 [place] [address]Dr. Slick Broderick Chloride [Moles/Vol] 105 mmol/L Normal 98-107 [facility] Comment on above: Performed By: #### B DEPARTMENT OF NATURAL RESOURCES OFFICER, CRP, CMP ####[facility] Hyhblljpgq9094 [place] [address]Dr. Slick Broderick CO2 [Moles/Vol] 24.2 mmol/L Normal 21.0-32.0 [facility] Comment on above: Performed By: #### B DEPARTMENT OF NATURAL RESOURCES OFFICER, CRP, CMP ####[facility] Ddwkdolhkn24[address] [place], [place] [address]Dr. Slick Broderick Creatinine [Mass/Vol] 1.96 mg/dL Critically high 0.55-1.02 [facility] Comment on above: Performed By: #### B DEPARTMENT OF NATURAL RESOURCES OFFICER, CRP, CMP ####[facility] Rfxizulwwj[address] [place], [place] [address]Dr. Slick Broderick EGFR-AF OMANI 30 mL/min/1.73m2 Critically low >=60 [facility] Comment on above: Performed By: #### B DEPARTMENT OF NATURAL RESOURCES OFFICER, CRP, CMP ####[facility] Qedarmwpnl[address] [place], [place] [address]Dr. Slick Broderick EGFR-NON AF OMANI 25 mL/min/1.73m2 Critically low >=60 [facility] Comment on above: Performed By: #### B DEPARTMENT OF NATURAL RESOURCES OFFICER, CRP, CMP ####[facility] [address]yavbndmff03[address] [place], [place] [address]Dr. Slick Broderick Globulin (S) [Mass/Vol] 3.8 g/dL Normal [facility] Comment on above: Performed By: #### B DEPARTMENT OF NATURAL RESOURCES OFFICER, CRP, CMP ####[facility] Ojnhvjylol[address] [place], [place] [address]Dr. Slick Broderick Glucose [Mass/Vol] 91 mg/dL Normal 74-106 [facility] Comment on above: Performed By: #### B DEPARTMENT OF NATURAL RESOURCES OFFICER, CRP, CMP ####[facility] Zarddixdpx8[address] [place], [place] [address]Dr. Slick Broderick Potassium [Moles/Vol] 4.9 mmol/L Normal 3.5-5.[address] [facility] Comment on above: Performed By: #### B DEPARTMENT OF NATURAL RESOURCES OFFICER, CRP, CMP ####[facility] Pgkewpsnou7311 [place] [address]Dr. Slick Broderick Protein [Mass/Vol] 6.4 g/dL Normal 6.4-8.2 [facility] Comment on above: Performed By: #### B DEPARTMENT OF NATURAL RESOURCES OFFICER, CRP, CMP ####[facility] Nrbryusgnv[address] [place], [place] [address]Dr. Slick Broderick Sodium [Moles/Vol] 136 mmol/L Normal 136-145 [facility] Comment on above: Performed By: #### B DEPARTMENT OF NATURAL RESOURCES OFFICER, CRP, CMP ####[facility] [address]wvkhzazl[address] [place], [place] [address]Dr. Slick Broderick Urea nitrogen [Mass/Vol] 32.0 mg/dL Critically high 7.0-18.0 [facility] Comment on above: Performed By: #### B DEPARTMENT OF NATURAL RESOURCES OFFICER, CRP, CMP ####[facility] Nrty[address]equ[address] [place], [place] [address]Dr. Slick Broderick Urea nitrogen/Creatinine [Mass ratio] 16.3 mg/mg Normal [facility] Comment on above: Performed By: #### B DEPARTMENT OF NATURAL RESOURCES OFFICER, CRP, CMP ####[facility] Frfobbntwa[address] [place], [place] [address]Dr. Slick Broderick TYPE AND SCREENon 12-12-2021 TYPE AND SCREEN Negative Normal [facility] Comment on above: Performed By: #### T NS ####[facility] Vcwlph[address] [place], [place] [address]Dr. Slick Broderick URINE MICROSCOPIC ONLYon BACTERIA SMALL Abnormal NONE SEEN [facility] Comment on above: Performed By: #### U MICRO, ERUR ####[facility] Jfwexijbek[address] [place], [place] [address]Dr. Slick Broderick Bacteria identified Cx Nom (U) INDICATED Normal [facility] Comment on above: Performed By: #### U MICRO, ERUR ####[facility] Jqcutbeecq[address] [place], [place] [address]Dr. Slick Broderick CAST NONE SEEN Normal NONE SEEN [facility] Comment on above: Performed By: #### U MICRO, ERUR ####[facility] [address] [place] [address]Dr. Slick Broderick Crystals LM Nom (Urine sed) NONE SEEN Normal NONE SEEN [facility] Comment on above: Performed By: #### U MICRO, ERUR ####[facility] [address]jhmhr[address] [place] [address]Dr. Slick Broderick Epithelial cells LM Ql (Urine sed) MANY Abnormal NONE SEEN /RARE [facility] Comment on above: Performed By: #### U MICRO, ERUR ####[facility] [address]fs[address] [place], [place] [address]Dr. Slick Broderick MUCOUS TRACE Abnormal NONE SEEN [facility] Comment on above: Performed By: #### U MICRO, ERUR ####[facility] R[address]rkh[address] [place], [place] [address]Dr. Slick Broderick RBC 0-2 Normal 0-[address] [facility] Comment on above: Performed By: #### U MICRO, ERUR ####[facility] Diqyqcsyet[address] [place], [place] [address]Dr. Slick Broderick WBC 2-5 Abnormal NONE SEEN [facility] Comment on above: Performed By: #### U MICRO, ERUR ####[facility] Bct[address] [place], [place] [address]Dr. Slick Broderick VIT B12 AND FOLATEon 022 Cobalamin (Vitamin B12) [Mass/Vol] 753.0 pg/mL Normal 193.0-986.0 [facility] Comment on above: Performed By: #### B 12FOL, FETIBC ####[facility] Xaugqrel[address] [place], [place] [address]Dr. Slick Broderick FOLATE 20.20 ng/mL Normal 8.60-58.90 [facility] Comment on above: Performed By: #### B 12FOL, FETIBC ####[facility] [address] [place] [address]Dr. Slick Broderick XR CHEST 1 Von 12-12-2021 XR CHEST [address] [facility] XR KNEE LT 3Von 12-12-2021 XR KNEE LT 3V Normal [facility] PROF CHEM 8 (BAS METB)on Anion gap [Moles/Vol] 11.4 mmol/L Normal [facility] Comment on above: Performed By: #### B MP ####[facility] [address] [place] [address]Dr. Slick Broderick Calcium [Mass/Vol] 7.4 mg/dL Critically low 8.5-10.1 [facility] Comment on above: Performed By: #### B MP ####[facility] [address]yr[address] [place] [address]Dr. Slick Broderick Chloride [Moles/Vol] 109 mmol/L Critically high 98-107 [facility] Comment on above: Performed By: #### B MP ####[facility] Byolibyuoh[address] [place], [place] [address]Dr. Slick Broderick CO2 [Moles/Vol] 26.6 mmol/L Normal 21.0-32.0 [facility] Comment on above: Performed By: #### B MP ####[facility] Sc[address]owgs[address]ki[address] [place], [place] [address]Dr. Slick Broderick Creatinine [Mass/Vol] 1.16 mg/dL Critically high 0.55-1.02 [facility] Comment on above: Performed By: #### B MP ####[facility] Okrhnbhszx[address] [place], [place] [address]Dr. Slick Broderick EGFR-AF OMANI 56 mL/min/1.73m2 Critically low >=[address] [facility] Comment on above: Performed By: #### B MP ####[facility] Zeomlfrdrk[address] [place], [place] [address]Dr. Slick Broderick EGFR-NON AF OMANI 46 mL/min/1.73m2 Critically low >=[address] [facility] Comment on above: Performed By: #### B MP ####[facility] Eoxvkhwswp[address] [place], [place] [address]Dr. Slick Broderick Glucose [Mass/Vol] 128 mg/dL Critically high 74-[address] [facility] Comment on above: Performed By: #### B MP ####[facility] [address] [place] [address]Dr. Slick Broderick Potassium [Moles/Vol] 5.0 mmol/L Normal 3.5-5.1 [facility] Comment on above: Performed By: #### B MP ####[facility] [address] [place] [address]Dr. Meaganwendie [place] Sodium [Moles/Vol] 142 mmol/L Normal 136-145 [facility] Comment on above: Performed By: #### B MP ####[facility] [address]perqie[address] [place] [address]Dr. Slick [place] Urea nitrogen [Mass/Vol] 22.0 mg/dL Critically high 7.0-18.0 [facility] Comment on above: Performed By: #### B MP ####[facility] [address]wr[address]ix[address] [place] [address]Dr. Slick [place] Urea nitrogen/Creatinine [Mass ratio] 19.0 mg/mg Normal [facility] Comment on above: Performed By: #### B MP ####[facility] K[address] [place], [place] [address]Dr. Slick Broderick XR TIB_FIB LT 2Von 2 XR TIB_FIB LT 2V Normal [facility] CT CSPINE WO CONon 2 CT CSPINE WO CON Normal [facility] CT HEAD WO CONon 11-29-2021 CT HEAD WO CON Normal [facility] XR lumbar spine AP/LAT/FLX/E XTon 10-06-2021 XR lumbar spine AP/LAT/FLX/EXT [facility] [employer] Other XR lumbar spine AP/LAT/FLX/EXT [facility] [employer] Other XR lumbar spine AP/LAT/FLX/EXT [address] [place] [address] [employer] Other XR lumbar spine AP/LAT/FLX/[place] [address] [employer] Other XR lumbar spine AP/LAT/FLX/EXT XRay Report [employer] Other XR lumbar spine AP/LAT/FLX/EXT Signed [employer] Other XR lumbar spine AP/LAT/FLX/EXT Patient: Linda Nascimento MR#: [id number] [employer] Other XR lumbar spine AP/LAT/FLX/EXT 840 [employer] Other XR lumbar spine AP/LAT/FLX/EXT : 1950 Acct:[id number] [employer] Other XR lumbar spine AP/LAT/FLX/EXT Age/Sex: 71 / F ADM Date: 10/06/21 [employer] Other XR lumbar spine AP/LAT/FLX/EXT Loc: [facility] Room: Type: REG CLI [employer] Other XR lumbar spine AP/LAT/FLX/EXT Attending Dr: Gunnar Fernandez DO [employer] Other XR lumbar spine AP/LAT/FLX/EXT Ordering Provider: Gunnar Fernandez DO [employer] Other XR lumbar spine AP/LAT/FLX/EXT Date of Service: 10/06/21 [employer] Other XR lumbar spine AP/LAT/FLX/EXT XR/XR lumbar spine AP/LAT/FLX/EXT: Lumbar pain [employer] Other XR lumbar spine AP/LAT/FLX/EXT Copies to: Gunnar Fernandez DO [employer] Other XR lumbar spine AP/LAT/FLX/EXT Lumbar spine 10/06/2021. [employer] Other XR lumbar spine AP/LAT/FLX/EXT CLINICAL DATA: Low back pain with radiation to the buttocks. [employer] Other XR lumbar spine AP/LAT/FLX/EXT FINDINGS: 4 standing views of the lumbar spine were obtained including lateral views in the [employer] Other XR lumbar spine AP/LAT/FLX/EXT neutral, flexion, and extension positions. [employer] Other XR lumbar spine AP/LAT/FLX/EXT There is grade 2 spondylolisthesis measuring 17 mm at L4-L5. There is grade 1 spondylolisthesis [employer] Other XR lumbar spine AP/LAT/FLX/EXT measuring 8 mm at the lumbosacral junction. There is mild anterior malalignment of L3 on L4. Overall [employer] Other XR lumbar spine AP/LAT/FLX/EXT vertebral alignment does not significantly change with flexion or extension. There are disc space [employer] Other XR lumbar spine AP/LAT/FLX/EXT narrowing and facet arthritis in the lower lumbar spine. [employer] Other XR lumbar spine AP/LAT/FLX/EXT XR/XR lumbar spine AP/LAT/FLX/EXT [employer] Other XR lumbar spine AP/LAT/FLX/EXT IMPRESSION: Multilevel spondylolisthesis. No instability with flexion or extension. Disc space [employer] Other XR lumbar spine AP/LAT/FLX/EXT Impression dictated by: Marin Haines Jr., M.D.10/06/2021 4:07 PM [employer] Other XR lumbar spine AP/LAT/FLX/EXT Dictation Location: [place] [address] [employer] Other XR lumbar spine AP/LAT/FLX/EXT Transcribed By: ROLF 10/06/21 1607 [employer] Other XR lumbar spine AP/LAT/FLX/EXT Dictated By: Marin Haines Jr, MD 10/06/21 1600 [employer] Other XR lumbar spine AP/LAT/FLX/EXT Signed By: [employer] Other XR lumbar spine AP/LAT/FLX/EXT 10/06/21 1607 [employer] Other BASIC METABOLIC PANELon 11-1 Calcium [Mass/Vol] 8.2 mg/dL Low 8.6-10.3 [facility] Comment on above: Order Comment: No: D o not add to previous draw Performed By: #### 0 0071 ####[facility] [place] [address], [facility] Chloride [Moles/Vol] 106 mmol/L Normal 98-107 [facility] Comment on above: Order Comment: No: D o not add to previous draw Performed By: #### 0 0071 ####[facility] [place] [address], [facility] CO2 [Moles/Vol] 23 mmol/L Normal 21-31 The [facility] Comment on above: Order Comment: No: D o not add to previous draw Performed By: #### 0 0071 ####[facility] [place] [address], [facility] Creatinine [Mass/Vol] 0.98 mg/dL Normal 0.60-1.20 [facility] Comment on above: Order Comment: No: D o not add to previous draw Performed By: #### 0 0071 ####[facility] [place] [address], [facility] eGFR- non- 56 ml/min/1.73sq m Abnormal >60 The [facility] Comment on above: Order Comment: No: D o not add to previous draw Result Comment: Calc ulation may not be valid for patients over 70 years Performed By: #### 0 0071 ####[facility] [id number], [facility] GFR/1.73 sq M.predicted among blacks MDRD (S/P/Bld) [Vol rate/Area] mL/min/{1.73_m2} Normal >60 [facility] Comment on above: Order Comment: No: D o not add to previous draw Result Comment: Calc ulation may not be valid for patients over 70 years Performed By: #### 0 0071 ####[facility] [place] [address], [facility] Glucose [Mass/Vol] 104 mg/dL High 70-100 [facility] Comment on above: Order Comment: No: D o not add to previous draw Performed By: #### 0 0071 ####[facility] [place] [address], [facility] Potassium [Moles/Vol] 4.5 mmol/L Normal 3.5-5.1 [facility] Comment on above: Order Comment: No: D o not add to previous draw Performed By: #### 0 0071 ####[facility] [place] [address], [facility] Sodium [Moles/Vol] 136 mmol/L Normal 136-145 [facility] Comment on above: Order Comment: No: D o not add to previous draw Performed By: #### 0 0071 ####[facility] [id number], [facility] Urea nitrogen [Mass/Vol] 14 mg/dL Normal 7-25 [facility] Comment on above: Order Comment: No: D o not add to previous draw Performed By: #### 0 0071 ####[facility] [id number], [facility] HEMATOCRITon 04-28-2021 Hematocrit (Bld) [Volume fraction] 27.6 % Low 36.0-45.0 [facility] Comment on above: Order Comment: No: D o not add to previous draw Performed By: #### 5 7007, [address] #### [address] HEMOGLOBINon 04-28-2021 Hemoglobin (Bld) [Mass/Vol] 8.6 g/dL Low 12.0-15.0 [facility] Comment on above: Order Comment: No: D o not add to previous draw Performed By: #### 5 7307, [address] #### [facility] [address] [facility]. [address] CHEST AND LATERALon 04-27-20 CHEST AND LATERAL [facility] Department of Radiology [address] [place] [id number] Patient Name: LINDA NASCIMENTO : 1950 Sex: F Age: Race: White Pt. Location: [id number] Patient Status: I Ordered Date: 04/27/2021 7:00:00 [...] leads. Electronically signed: Dwight Davila. Transcribed by: [id number], User Resident: Electronically Signed by: DWIGHT DAVILA @ 04/27/2021 10:35 AM Normal [facility] Comment on above: Order Comment: No: D o not add to previous draw BASIC METABOLIC PANELon 04-12 Calcium [Mass/Vol] 8.7 mg/dL Normal 8.6-10.3 [facility] Comment on above: Order Comment: No: D o not add to previous draw Performed By: #### 0 0071 ####[facility] Chloride [Moles/Vol] 103 mmol/L Normal 98-107 [facility] Comment on above: Order Comment: No: D o not add to previous draw Performed By: #### 0 0071 ####[facility] CO2 [Moles/Vol] 24 mmol/L Normal 21-31 The [facility] Comment on above: Order Comment: No: D o not add to previous draw Performed By: #### 0 0071 ####[facility] Creatinine [Mass/Vol] 1.05 mg/dL Normal 0.60-1.20 [facility] Comment on above: Order Comment: No: D o not add to previous draw Performed By: #### 0 0071 ####[facility] [place] [address], [facility] eGFR- non- 51 ml/min/1.73sq m Abnormal >60 The [facility] Comment on above: Order Comment: No: D o not add to previous draw Result Comment: Calc ulation may not be valid for patients over 70 years Performed By: #### 0 0071 ####[facility] [place] [address], [facility] GFR/1.73 sq M.predicted among blacks MDRD (S/P/Bld) [Vol rate/Area] mL/min/{1.73_m2} Normal >60 The [facility] Comment on above: Order Comment: No: D o not add to previous draw Result Comment: Calc ulation may not be valid for patients over 70 years Performed By: #### 0 0071 ####[facility] [place] [address], [facility] Glucose [Mass/Vol] 107 mg/dL High 70-100 [facility] Comment on above: Order Comment: No: D o not add to previous draw Performed By: #### 0 0071 ####[facility] [place] [address], [facility] Potassium [Moles/Vol] 4.6 mmol/L Normal 3.5-5.1 The [facility] Comment on above: Order Comment: No: D o not add to previous draw Performed By: #### 0 0071 ####[facility] [place] [address], [place] Sodium [Moles/Vol] 134 mmol/L Low 136-145 [facility] Comment on above: Order Comment: No: D o not add to previous draw Performed By: #### 0 0071 ####[facility] [place] [address], [place] Urea nitrogen [Mass/Vol] 21 mg/dL Normal 7-25 [facility] Comment on above: Order Comment: No: D o not add to previous draw Performed By: #### 0 0071 ####[facility] [place] [address], [facility] CBC W/DIFFon 04-26-2021 ABS IMM GRANS 0.0 10*3/uL Normal 0.0-0.2 The [facility] Comment on above: Order Comment: No: D o not add to previous draw Performed By: #### 5 0103 #### [facility] [address] [place] [address], [facility] ABS NEUTROPHILS 4.8 10*3/uL Normal 1.6-7.6 The [facility] Comment on above: Order Comment: No: D o not add to previous draw Performed By: #### 5 0103 #### [facility] [address] [facility] [place] [address], [facility] Basophils (Bld) [#/Vol] 0.0 10*3/uL Normal 0.0-0.2 The [facility] Comment on above: Order Comment: No: D o not add to previous draw Performed By: #### 5 3 #### [facility] [address] [place] [address], [facility] Basophils/100 WBC (Bld) 0.6 % Normal 0.0-1.[address] [facility] Comment on above: Order Comment: No: D o not add to previous draw Performed By: #### 5 0103 #### [facility] [address] [place] [address], [facility] Eosinophils (Bld) [#/Vol] 0.4 10*3/uL Normal 0.0-0.5 The [facility] Comment on above: Order Comment: No: D o not add to previous draw Performed By: #### 5 0103 #### [facility] [address] Eosinophils/100 WBC (Bld) 6.0 % Normal 0.0-6.0 The [facility] Comment on above: Order Comment: No: D o not add to previous draw Performed By: #### 5 0103 #### [facility] [address] [place] [address], [facility] Erythrocyte distribution width (RBC) [Ratio] 13.1 % Normal 11.5-15.0 The [facility] Comment on above: Order Comment: No: D o not add to previous draw Performed By: #### 5 0103 #### [facility] [address] [facility] [place] [address], [facility] Hematocrit (Bld) [Volume fraction] 27.8 % Low 36.0-45.0 [facility] Comment on above: Order Comment: No: D o not add to previous draw Performed By: #### 5 0103 #### [facility] [address] [facility] [place] [address], [facility] Hemoglobin (Bld) [Mass/Vol] 9.0 g/dL Low 12.0-15.0 [facility] Comment on above: Order Comment: No: D o not add to previous draw Performed By: #### 5 0103 #### [facility] [address] [facility] [place] [address], [facility] IMMATURE GRANS 0.3 % Normal 0.0-1.0 The [facility] Comment on above: Order Comment: No: D o not add to previous draw Performed By: #### 5 0103 #### [facility] [address] [place] [address], [facility] Lymphocytes (Bld) [#/Vol] 0.7 10*3/uL Low 1.2-4.0 The [facility] Comment on above: Order Comment: No: D o not add to previous draw Performed By: #### 5 0103 #### [facility] [address] [place] [address], [facility] Lymphocytes/100 WBC (Bld) 9.8 % Low 20.0-45.0 The [facility] Comment on above: Order Comment: No: D o not add to previous draw Performed By: #### 5 0103 #### [facility] [address] [place] [address], [facility] MCH (RBC) [Entitic mass] 33.5 pg High 27.0-33.0 The [facility] Comment on above: Order Comment: No: D o not add to previous draw Performed By: #### 5 0103 #### [facility] [address] [place] [address], [facility] MCHC (RBC) [Mass/Vol] 32.4 g/dL Normal 32.0-35.0 The [facility] Comment on above: Order Comment: No: D o not add to previous draw Performed By: #### 5 0103 #### [facility] [address] [place] [address], [facility] MCV (RBC) [Entitic vol] 103.3 fL High 82.0-98.0 T he [facility] Comment on above: Order Comment: No: D o not add to previous draw Performed By: #### 5 0103 #### [facility] [address] [place] [address], [facility] Monocytes (Bld) [#/Vol] 0.7 10*3/uL Normal 0.1-1.0 The [facility] Comment on above: Order Comment: No: D o not add to previous draw Performed By: #### 5 0103 #### [facility] [address] [place] [address], [facility] MONOS 10.4 % Normal 5.0-12.0 The [facility] Comment on above: Order Comment: No: D o not add to previous draw Performed By: #### 5 3 #### [facility] [address] [place] [address], [place] Neutrophils/100 WBC (Bld) 72.9 % High 40.0-72.0 The [facility] Comment on above: Order Comment: No: D o not add to previous draw Performed By: #### 5 0103 #### [facility] [address] [place] [address], [facility] Nucleated RBC/100 WBC (Bld) [Ratio] 0 % Normal 0-0 The [facility] Comment on above: Order Comment: No: D o not add to previous draw Performed By: #### 5 0103 #### [facility] [address] [place] [address], [facility] PLAT CNT 213 10*3/uL Normal 150-400 The [facility] Comment on above: Order Comment: No: D o not add to previous draw Performed By: #### 5 0103 #### [facility] [address] [facility] [place] [address], [facility] RBC (Bld) [#/Vol] 2.69 10*6/uL Low 3.80-5.00 The [facility] Comment on above: Order Comment: No: D o not add to previous draw Performed By: #### 5 0103 #### [facility] [address] [place] [address], [facility] WBC (Bld) [#/Vol] 6.62 10*3/uL Normal 4.00-10.60 The [facility] Comment on above: Order Comment: No: D o not add to previous draw Performed By: #### 5 0103 #### [facility] [address] [facility] [place] [address], [facility] Cardiovascular Lab Reporton 04-26-2021 Cardiovascular Lab Report [facility] Patient Name: Linda Nascimento [facility] Lisa MR #: [id number] Department of Physician: Enoch Frankel MD Medicine Service Date: 04/26/2021 Division of Birthdate: 1950 Cardiology Room #: 3CD [id number] Adult Cardiovascular Services [facility] [address] [facility] [place], [place] [address] Cardiovascular Laboratory Report PACEMAKER IMPLANT PROCEDURE NOTE [...] using modified seldinger technique using a 5 [place] micro-puncture needle on two occasions and 0.35 wires were placed. Local infiltration of 1% Lidocaine was performed, and an incision was created in the left upper chest. Dissection was then performed using cautery down to the fascial plane above the muscle and a small pocket was created for the device. 6 Upper Sorbian Safesheaths were placed over the wire. An active fixation [employer] pacing lead was then delivered through the 6Fsheath to the right ventricle. After confirmation of lead position on orthogonal views (GONZALES and NAMIBIAN) to confirm septal position, the screw was activated, and the lead was placed in the right ventricular mid cavity towards the septum. After confirmation of good sensing parameters, injury pattern and pacing thresholds, 10V pacing was done and no diaphragmatic stimulation was noted. It was then secured in the pocket using three 1-0 Silk sutures. Then an active fixation [employer] lead was delivered through the 6Fsheath to the right atrial appendage. After confirmation of lead position on orthogonal views (GONZALES and NAMIBIAN), the screw was activated. RA lead was [...] Device info: [employer] Edora Model# 8DRT Serial# [id number] RA lead: Model# [employer] Solia S53 Serial# [id number] Sensin.9mV Threshold: 1.1V@0.5ms Impedance: 429 Ohms RV lead: Model (more content not included)... Normal The [facility] BASIC METABOLIC PANELon 11-1 Calcium [Mass/Vol] 8.6 mg/dL Normal 8.6-10.3 [facility] Comment on above: Order Comment: No: D o not add to previous draw Performed By: #### 0 0071 ####[facility] [place] [address], [place] Chloride [Moles/Vol] 101 mmol/L Normal 98-107 The [facility] Comment on above: Order Comment: No: D o not add to previous draw Performed By: #### 0 0071 ####[facility] [place] [address], [place] CO2 [Moles/Vol] 24 mmol/L Normal 21-31 [facility] Comment on above: Order Comment: No: D o not add to previous draw Performed By: #### 0 0071 ####[facility] [place] [address], [facility] Creatinine [Mass/Vol] 1.36 mg/dL High 0.60-1.20 [facility] Comment on above: Order Comment: No: D o not add to previous draw Performed By: #### 0 0071 ####[facility] [place] [address], [facility] eGFR- 46 ml/min/1.73sq m Abnormal >60 [facility] Comment on above: Order Comment: No: D o not add to previous draw Result Comment: Calc ulation may not be valid for patients over 70 years Performed By: #### 0 0071 ####[facility] [place] [address], [place] eGFR- non- 39 ml/min/1.73sq m Abnormal >60 [facility] Comment on above: Order Comment: No: D o not add to previous draw Result Comment: Calc ulation may not be valid for patients over 70 years Performed By: #### 0 0071 ####[facility] [place] [address], [place] Glucose [Mass/Vol] 98 mg/dL Normal 70-100 [facility] Comment on above: Order Comment: No: D o not add to previous draw Performed By: #### 0 0071 ####[facility] [place] [address], [facility] Potassium [Moles/Vol] 4.4 mmol/L Normal 3.5-5.1 The [facility] Comment on above: Order Comment: No: D o not add to previous draw Performed By: #### 0 0071 ####[facility] [place] [address], [facility] Sodium [Moles/Vol] 132 mmol/L Low 136-145 [facility] Comment on above: Order Comment: No: D o not add to previous draw Performed By: #### 0 0071 ####[facility] [facility] [place] [address], [facility] Urea nitrogen [Mass/Vol] 22 mg/dL Normal 7-25 The [facility] Comment on above: Order Comment: No: D o not add to previous draw Performed By: #### 0 0071 ####[facility] [facility] [place] [address], [facility] HEMATOCRITon 04-25-2021 Hematocrit (Bld) [Volume fraction] 28.3 % Low 36.0-45.0 The [facility] Comment on above: Order Comment: No: D o not add to previous draw Performed By: #### 5 7307, 11197 #### [facility] [address] [place] [address], [facility] HEMOGLOBINon 04-25-2021 Hemoglobin (Bld) [Mass/Vol] 9.0 g/dL Low 12.0-15.0 The [facility] Comment on above: Order Comment: No: D o not add to previous draw Performed By: #### 9 1917, [id number] #### [facility] [address] BASIC METABOLIC PANELon 11-1 Calcium [Mass/Vol] 8.8 mg/dL Normal 8.6-10.3 [facility] Comment on above: Order Comment: No: D o not add to previous draw Performed By: #### 1 0, 57882 ####[facility] [place] [address], [facility] Chloride [Moles/Vol] 101 mmol/L Normal 98-107 The [facility] Comment on above: Order Comment: No: D o not add to previous draw Performed By: #### 1 69, 85761 ####[facility] [place] [address], [facility] CO2 [Moles/Vol] 26 mmol/L Normal 21-31 [facility] Comment on above: Order Comment: No: D o not add to previous draw Performed By: #### 1 69, 25623 ####[facility] [place] [address], [facility] Creatinine [Mass/Vol] 1.17 mg/dL Normal 0.60-1.20 The [facility] Comment on above: Order Comment: No: D o not add to previous draw Performed By: #### 1 69, 86850 ####[facility] eGFR- 55 ml/min/1.73sq m Abnormal >60 The [facility] Comment on above: Order Comment: No: D o not add to previous draw Result Comment: Calc ulation may not be valid for patients over 70 years Performed By: #### 1 69, 43048 ####[facility] [place] [address], [facility] eGFR- non- 45 ml/min/1.73sq m Abnormal >60 The [facility] Comment on above: Order Comment: No: D o not add to previous draw Result Comment: Calc ulation may not be valid for patients over 70 years Performed By: #### 1 69, 91454 ####[facility] [facility] [place] [address], [facility] Glucose [Mass/Vol] 102 mg/dL High 70-100 [facility] Comment on above: Order Comment: No: D o not add to previous draw Performed By: #### 1 69, 41605 ####[facility] [facility] [place] [address], [facility] Potassium [Moles/Vol] 4.5 mmol/L Normal 3.5-5.1 The [facility] Comment on above: Order Comment: No: D o not add to previous draw Performed By: #### 1 69, 23736 ####[facility] [facility] [place] [address], [facility] Sodium [Moles/Vol] 133 mmol/L Low 136-145 [facility] Comment on above: Order Comment: No: D o not add to previous draw Performed By: #### 1 69, 46865 ####[facility] [facility] [place] [address], [facility] Urea nitrogen [Mass/Vol] 20 mg/dL Normal 7-25 The [facility] Comment on above: Order Comment: No: D o not add to previous draw Performed By: #### 1 69, 25138 ####[facility] [facility] [place] [address], [facility] HEMOGLOBINon 04-24-2021 Hemoglobin (Bld) [Mass/Vol] 10.0 g/dL Low 12.0-15.0 The [facility] Comment on above: Order Comment: Yes: Add to Previous draw if able NEEDS DRAWN. NO LAV TUBE FROM AM LABS Performed By: #### 9 2089 #### [facility] [address] [place] [id number], [facility] MAGNESIUM BLOODon 04-24-2021 Magnesium [Mass/Vol] 2.1 mg/dL Normal 1.9-2.7 The [facility] Comment on above: Order Comment: No: D o not add to previous draw Performed By: #### 1 69, 98606 ####[facility] [facility] [address], [facility] BASIC METABOLIC PANELon 11- Calcium [Mass/Vol] 8.4 mg/dL Low 8.6-10.3 [facility] Comment on above: Order Comment: Unkno wn Performed By: #### 1 0, 34492, 21930 ####[facility] [facility] [place] [address], [facility] Chloride [Moles/Vol] 100 mmol/L Normal 98-107 The [facility] Comment on above: Order Comment: Unkno wn Performed By: #### 1 69, 36215, 85477 ####[facility] [facility] [place] [address], [facility] CO2 [Moles/Vol] 25 mmol/L Normal 21-31 The [facility] Comment on above: Order Comment: Unkno wn Performed By: #### 1 69, 24089, 04565 ####[facility] [facility].[address] Creatinine [Mass/Vol] 1.30 mg/dL High 0.60-1.20 The [facility] Comment on above: Order Comment: Unkno wn Performed By: #### 1 69, 57529, 56696 ####[facility] [facility] [place] [address], [facility] eGFR- 49 ml/min/1.73sq m Abnormal >60 The [facility] Comment on above: Order Comment: Unkno wn Result Comment: Calc ulation may not be valid for patients over 70 years Performed By: #### 1 0, 45740, 35545 ####[facility] [facility] eGFR- non- 40 ml/min/1.73sq m Abnormal >60 The [facility] Comment on above: Order Comment: Unkno wn Result Comment: Calc ulation may not be valid for patients over 70 years Performed By: #### 1 0070, 91514, 48584 ####[facility] [facility] [place] [address], [facility] Glucose [Mass/Vol] 93 mg/dL Normal 70-100 [facility] Comment on above: Order Comment: Unkno wn Performed By: #### 1 0, 59891, 35350 ####[facility] [place] [address], [facility] Potassium [Moles/Vol] 4.1 mmol/L Normal 3.5-5.1 The [facility] Comment on above: Order Comment: Unkno wn Performed By: #### 1 0, 58240, 24267 ####[facility] [facility] [place] [address], [facility] Sodium [Moles/Vol] 133 mmol/L Low 136-145 [facility] Comment on above: Order Comment: Unkno wn Performed By: #### 1 0, 19686, 71072 ####[facility] [facility].[address] Urea nitrogen [Mass/Vol] 20 mg/dL Normal 7-25 The [facility] Comment on above: Order Comment: Unkno wn Performed By: #### 1 0, 48771, 04969 ####[facility] [facility] [place] [address], [facility] CBC W/DIFFon 04-23-2021 ABS IMM GRANS 0.1 10*3/uL Normal 0.0-0.2 The [facility] Comment on above: Order Comment: Unkno wn Performed By: #### 5 0103 #### [facility] [address] [place] [address], [facility] ABS NEUTROPHILS 7.8 10*3/uL High 1.6-7.6 The [facility] Comment on above: Order Comment: Unkno wn Performed By: #### 5 0103 #### [facility] [address] [place] [address], [facility] Basophils (Bld) [#/Vol] 0.1 10*3/uL Normal 0.0-0.2 The [facility] Comment on above: Order Comment: Unkno wn Performed By: #### 5 0103 #### [facility] [address] [place] [address], [facility] Basophils/100 WBC (Bld) 0.5 % Normal 0.0-1.[address] [facility] Comment on above: Order Comment: Unkno wn Performed By: #### 5 0103 #### [facility] [address] [place] [address], [facility] Eosinophils (Bld) [#/Vol] 0.4 10*3/uL Normal 0.0-0.5 The [facility] Comment on above: Order Comment: Unkno wn Performed By: #### 5 0103 #### [facility] [address] [place] [address], [facility] Eosinophils/100 WBC (Bld) 3.5 % Normal 0.0-6.0 The [facility] Comment on above: Order Comment: Unkno wn Performed By: #### 5 0103 #### [facility] [address] [place] [address], [place] Erythrocyte distribution width (RBC) [Ratio] 13.2 % Normal 11.5-15.0 The [facility] Comment on above: Order Comment: Unkno wn Performed By: #### 5 3 #### [facility] [address] [place] [address], [facility] Hematocrit (Bld) [Volume fraction] 29.2 % Low 36.0-45.0 The [facility] Comment on above: Order Comment: Unkno wn Performed By: #### 5 0103 #### [facility] [address] [place] [address], [facility] Hemoglobin (Bld) [Mass/Vol] 9.3 g/dL Low 12.0-15.0 The [facility] Comment on above: Order Comment: Unkno wn Performed By: #### 5 0103 #### [facility] [address] [place] [address], [facility] IMMATURE GRANS 0.6 % Normal 0.0-1.0 The [facility] Comment on above: Order Comment: Unkno wn Performed By: #### 5 0103 #### [facility] [address] [place] [address], [facility] Lymphocytes (Bld) [#/Vol] 0.7 10*3/uL Low 1.2-4.0 The [facility] Comment on above: Order Comment: Unkno wn Performed By: #### 5 3 #### [facility] [address] [address], [facility] Lymphocytes/100 WBC (Bld) 6.8 % Low 20.0-45.0 The [facility] Comment on above: Order Comment: Unkno wn Performed By: #### 5 3 #### [facility] [address] [address], [facility] MCH (RBC) [Entitic mass] 33.5 pg High 27.0-33.0 The [facility] Comment on above: Order Comment: Unkno wn Performed By: #### 5 3 #### [facility] [address] [address], [facility] MCHC (RBC) [Mass/Vol] 31.8 g/dL Low 32.0-35.0 The [facility] Comment on above: Order Comment: Unkno wn Performed By: #### 5 3 #### [facility] [address] [place] [address], [facility] MCV (RBC) [Entitic vol] 105.0 fL High 82.0-98.0 T he [facility] Comment on above: Order Comment: Unkno wn Performed By: #### 5 010 #### [facility] [address] [place] [address], [facility] Monocytes (Bld) [#/Vol] 1.0 10*3/uL Normal 0.1-1.0 The [facility] Comment on above: Order Comment: Unkno wn Performed By: #### 5 0103 #### [facility] [address] [place] [address], [facility] MONOS 10.0 % Normal 5.0-12.0 The [facility] Comment on above: Order Comment: Unkno wn Performed By: #### 5 3 #### [facility] [address] [place] [address], [facility] Neutrophils/100 WBC (Bld) 78.6 % High 40.0-72.0 The [facility] Comment on above: Order Comment: Unkno wn Performed By: #### 5 0103 #### [facility] [address] [place] [address], [facility] Nucleated RBC/100 WBC (Bld) [Ratio] 0 % Normal 0-0 The [facility] Comment on above: Order Comment: Unkno wn Performed By: #### 5 0103 #### [facility] [address] [place] [address], [place] PLAT CNT 227 10*3/uL Normal 150-400 The [facility] Comment on above: Order Comment: Unkno wn Performed By: #### 5 3 #### [facility] [address] [place] [address], [facility] RBC (Bld) [#/Vol] 2.78 10*6/uL Low 3.80-5.00 The [facility] Comment on above: Order Comment: Unkno wn Performed By: #### 5 0103 #### [facility] [address] [place] [address], [facility] WBC (Bld) [#/Vol] 9.87 10*3/uL Normal 4.00-10.60 [facility] Comment on above: Order Comment: Unkno wn Performed By: #### 5 0103 #### [facility] [address] MAGNESIUM BLOODon 04-23-2021 Magnesium [Mass/Vol] 2.1 mg/dL Normal 1.9-2.7 The [facility] Comment on above: Order Comment: Unkno wn Performed By: #### 1 0070, 87055, 72896 ####[facility] [facility].[address] PHOSPHORUS BLOODon Phosphate [Mass/Vol] 2.8 mg/dL Normal 2.5-5.0 [facility] Comment on above: Order Comment: Unkno wn Performed By: #### 1 0070, 91038, 50524 ####[facility] [facility].[address] APTTon 04-22-2021 aPTT Coag (Bld) [Time] 27.6 s Normal 25.0-35.0 Th e [facility] Comment on above: Order Comment: No: [...] THIS PURPOSE. Performed By: #### 5 7307, 03207 #### [facility] [address] BASIC METABOLIC PANELon 04-12 Calcium [Mass/Vol] 8.8 mg/dL Normal 8.6-10.3 [facility] Comment on above: Order Comment: No: D o not add to previous draw Performed By: #### 4 1000, 12787, 70097, 30179 ####[facility] [place] [address], [facility] Chloride [Moles/Vol] 99 mmol/L Normal 98-107 The [facility] Comment on above: Order Comment: No: D o not add to previous draw Performed By: #### 4 1000, 09092, 04292, 55980 ####[facility] [place] [address], [facility] CO2 [Moles/Vol] 27 mmol/L Normal 21-31 [facility] Comment on above: Order Comment: No: D o not add to previous draw Performed By: #### 4 1000, 32298, 99738, 82474 ####[facility] [place] [address], [facility] Creatinine [Mass/Vol] 1.39 mg/dL High 0.60-1.20 [facility] Comment on above: Order Comment: No: D o not add to previous draw Performed By: #### 4 1000, 59572, 54003, 60076 ####[facility] eGFR- 45 ml/min/1.73sq m Abnormal >60 The [facility] Comment on above: Order Comment: No: D o not add to previous draw Result Comment: Calc ulation may not be valid for patients over 70 years Performed By: #### 4 1000, 16802, 57088, 26815 ####[facility] [place] [address], [facility] eGFR- non- 37 ml/min/1.73sq m Abnormal >60 The [facility] Comment on above: Order Comment: No: D o not add to previous draw Result Comment: Calc ulation may not be valid for patients over 70 years Performed By: #### 4 1000, 40891, 33524, 99670 ####[facility] [facility] [place] [address], [facility] Glucose [Mass/Vol] 91 mg/dL Normal 70-100 [facility] Comment on above: Order Comment: No: D o not add to previous draw Performed By: #### 4 1000, 22671, 95085, 19511 ####[facility] [facility] [place] [address], [facility] Potassium [Moles/Vol] 4.4 mmol/L Normal 3.5-5.1 The [facility] Comment on above: Order Comment: No: D o not add to previous draw Performed By: #### 4 1000, 01428, 04261, 39382 ####[facility] [facility].[address] Sodium [Moles/Vol] 133 mmol/L Low 136-145 [facility] Comment on above: Order Comment: No: D o not add to previous draw Performed By: #### 4 1000, 65449, 85815, 09203 ####[facility] [facility] [place] [address], [facility] Urea nitrogen [Mass/Vol] 24 mg/dL Normal 7-25 The [facility] Comment on above: Order Comment: No: D o not add to previous draw Performed By: #### 4 1000, 83986, 39286, 25993 ####[facility] [facility] [place] [address], [facility] CBC W/DIFFon 04-22-2021 ABS IMM GRANS 0.0 10*3/uL Normal 0.0-0.2 The [facility] Comment on above: Performed By: #### 5 0103 #### [facility] [address] [place] [address], [place] ABS NEUTROPHILS 5.8 10*3/uL Normal 1.6-7.6 The [facility] Comment on above: Performed By: #### 5 0103 #### [facility] [address] [place] [address], [facility] Basophils (Bld) [#/Vol] 0.1 10*3/uL Normal 0.0-0.2 The [facility] Comment on above: Performed By: #### 5 0103 #### [facility] [address] [place] [address], [facility] Basophils/100 WBC (Bld) 0.6 % Normal 0.0-1.[address] [facility] Comment on above: Performed By: #### 5 0103 #### [facility] [address] [address], [facility] Eosinophils (Bld) [#/Vol] 0.2 10*3/uL Normal 0.0-0.5 [facility] Comment on above: Performed By: #### 5 0103 #### [facility] [address] [place] [address], [facility] Eosinophils/100 WBC (Bld) 2.7 % Normal 0.0-6.0 The [facility] Comment on above: Performed By: #### 5 3 #### [facility] [address] [place] [address], [facility] Erythrocyte distribution width (RBC) [Ratio] 13.0 % Normal 11.5-15.0 The [facility] Comment on above: Performed By: #### 5 3 #### [facility] [address] [address], [facility] Hematocrit (Bld) [Volume fraction] 29.2 % Low 36.0-45.0 The [facility] Comment on above: Performed By: #### 5 3 #### [facility] [address] [place] [address], [facility] Hemoglobin (Bld) [Mass/Vol] 9.6 g/dL Low 12.0-15.0 The [facility] Comment on above: Performed By: #### 5 0103 #### [facility] [address] [facility] [place] [address], [facility] IMMATURE GRANS 0.5 % Normal 0.0-1.0 The [facility] Comment on above: Performed By: #### 5 0103 #### [facility] [address] [place] [address], [facility] Lymphocytes (Bld) [#/Vol] 1.1 10*3/uL Low 1.2-4.0 [facility] Comment on above: Performed By: #### 5 0103 #### [facility] [address] [facility] [place] [address], [facility] Lymphocytes/100 WBC (Bld) 13.4 % Low 20.0-45.0 [facility] Comment on above: Performed By: #### 5 0103 #### [facility] [address] [facility] [place] [address], [facility] MCH (RBC) [Entitic mass] 33.1 pg High 27.0-33.0 [facility] Comment on above: Performed By: #### 5 0103 #### [facility] [address] [place] [address], [facility] MCHC (RBC) [Mass/Vol] 32.9 g/dL Normal 32.0-35.0 The [facility] Comment on above: Performed By: #### 5 0103 #### [facility] [address] [place] [address], [facility] MCV (RBC) [Entitic vol] 100.7 fL High 82.0-98.0 T will [facility] Comment on above: Performed By: #### 5 3 #### [facility] [address] [place] [address], [facility] Monocytes (Bld) [#/Vol] 0.7 10*3/uL Normal 0.1-1.0 The [facility] Comment on above: Performed By: #### 5 0103 #### [facility] [address] [place] [address], [facility] MONOS 9.1 % Normal 5.0-12.0 The [facility] Comment on above: Performed By: #### 5 0103 #### [facility] [address] [facility] [place] [address], [facility] Neutrophils/100 WBC (Bld) 73.7 % High 40.0-72.0 The [facility] Comment on above: Performed By: #### 5 0103 #### [facility] [address] [facility] [place] [address], [facility] Nucleated RBC/100 WBC (Bld) [Ratio] 0 % Normal 0-0 The [facility] Comment on above: Performed By: #### 5 0103 #### [facility] [address] [facility] [place] [address], [facility] PLAT CNT 234 10*3/uL Normal 150-400 The [facility] Comment on above: Performed By: #### 5 0103 #### [facility] [address] [facility] [place] [address], [facility] RBC (Bld) [#/Vol] 2.90 10*6/uL Low 3.80-5.00 The [facility] Comment on above: Performed By: #### [id number] #### [facility] [address] [facility] [place] [address], [facility] WBC (Bld) [#/Vol] 7.81 10*3/uL Normal 4.00-10.60 The [facility] Comment on above: Performed By: #### 5 3 #### [facility] [address] [facility] [place] [address], [facility] HOSPITAL FERRITINon 04-22-2021 Ferritin [Mass/Vol] 74 ng/mL Normal 11-307 The [facility] Comment on above: Order Comment: No: D o not add to previous draw Performed By: #### 8 4044, 46858, 99641, 92039, 84276, 04679 ####[facility] FOLATE SERUMon 04-22-2021 SERUM FOLATE 29.00 ng/mL Normal 6.60-1000.0 0 The [facility] Comment on above: Order Comment: No: D o not add to previous draw Result Comment: Norm al range reflects World Health Organization International Standard Performed By: #### 8 4044, 98847, 98765, 98480, 58197, 25817 ####[facility] HAPTOGLOBINon 04-22-2021 HAPTOGLOBIN 302 mg/dL High 26-164 The [facility] Comment on above: Order Comment: No: D o not add to previous draw Performed By: #### 3 0103 #### [facility] [address] KNEE LEFT 1 OR 2 VWSon 04-22 KNEE LEFT 1 OR 2 VWS [facility] Department of Radiology [address] [place] [id number] Patient Name: LINDA NASCIMENTO : 1950 Sex: F Age: Race: White Pt. Location: [id number] Patient Status: I Ordered Date: 04/22/2021 2:30:00 AM Completed Date: 04/22/2021 02:52 AM Requesting Provider: GUNNAR CHRISTIANSON Attending Provider: ROBERTA VELA Report Copy To: Signs & Symptoms: Pain ( specify Location) History: See Comments Comments: evaluate for FX Exam: KNEE LEFT 1 OR 2 [facility] KNEE LEFT 1 OR 2 S [...] report. Electronically signed: Boris Jara. Transcribed by: [email or web address], User Resident: NITHIN GARAY Electronically Signed by: BORIS JARA @ 04/22/2021 03:09 AM I personally read this/these film(s) with this resident Normal The [facility] Comment on above: Order Comment: No: D o not add to previous draw KNEE RIGHT 1 OR 2 [facility] 04-12 KNEE RIGHT 1 OR 2 [facility] Department of Radiology [address] [place] [id number] Patient Name: LINDA NASCIMENTO : 1950 Sex: F Age: Race: White Pt. Location: [id number] Patient Status: I Ordered Date: 04/22/2021 2:30:00 [...] report. Electronically signed: Boris Jara. Transcribed by: [email or web address], User Resident: NITHIN GARAY Electronically Signed by: BORIS JARA @ 04/22/2021 03:09 AM I personally read this/these film(s) with this resident Normal The [facility] Comment on above: Order Comment: No: D o not add to previous draw LDH BLOODon 04-22-2021 LDH 232 Units/L Normal 140-271 The [facility] Comment on above: Order Comment: No: D o not add to previous draw Performed By: #### 8 4044, 39557, 92539, 60539, 77596, 88269 ####[facility] [place] [address], [place] LIVER BATTERYon 04-22-2021 Albumin [Mass/Vol] 3.9 g/dL Normal 3.5-5.7 [facility] Comment on above: Order Comment: No: D o not add to previous draw Performed By: #### 5 7307, 20130 #### [facility] [address] [place] [address], [place] ALKALINE PHOSPH 74 IU/L Normal 34-104 [facility] Comment on above: Order Comment: No: D o not add to previous draw Performed By: #### 5 7307, 79108 #### [facility] [address] [place] [address], [place] ALT [Catalytic activity/Vol] 9 U/L Normal 7-52 The [facility] Comment on above: Order Comment: No: D o not add to previous draw Performed By: #### 5 7307, 72696 #### [facility] [address] [place] [address], [place] AST [Catalytic activity/Vol] 19 U/L Normal 13-39 The [facility] Comment on above: Order Comment: No: D o not add to previous draw Performed By: #### 5 7307, 38472 #### [facility] [address] [place] [address], [place] Bilirubin [Mass/Vol] 0.5 mg/dL Normal 0.3-1.0 The [facility] Comment on above: Order Comment: No: D o not add to previous draw Performed By: #### 5 7307, 38802 #### [facility] [address] [place] [address], [place] Bilirubin.direct [Mass/Vol] 0.1 mg/dL Normal 0.0-0.2 The [facility] Comment on above: Order Comment: No: D o not add to previous draw Performed By: #### 5 7307, 72613 #### [facility] [address] [place] [address], [place] Protein [Mass/Vol] 6.5 g/dL Normal 6.0-8.3 The [facility] Comment on above: Order Comment: No: D o not add to previous draw Performed By: #### 5 7307, 65978 #### [facility] [address] [place] [address], [facility] MAGNESIUM BLOODon 04-22-2021 Magnesium [Mass/Vol] 2.0 mg/dL Normal 1.9-2.7 The [facility] Comment on above: Order Comment: No: D o not add to previous draw Performed By: #### 4 1000, 14411, 63632, 51380 ####[facility] [place] [address], [facility] PERIPHERAL SMEARon 1 Nucleated RBC/100 WBC (Bld) [Ratio] 0 % Normal 0-0 The [facility] Comment on above: Order Comment: No: D o not add to previous draw Performed By: #### 5 7307, 19836 #### [facility] [address] [place] [address], [facility] OTHER PS1 Macrocytic anemia with no significant RBC morphology. Normal The [facility] Comment on above: Order Comment: No: D o not add to previous draw Performed By: #### 5 7307, 14634 #### [facility] [address] [place] [address], [place] OTHER PS2 Check serum B12 and folate. Normal The [facility] Comment on above: Order Comment: No: D o not add to previous draw Performed By: #### 5 7307, 53357 #### [facility] [address] [place] [address], [place] OTHER PS3 Otherwise unremarkable leukocytes and platelets. Normal The [facility] Comment on above: Order Comment: No: D o not add to previous draw Performed By: #### 5 7307, 96276 #### [facility] [address] [facility] OTHER PS4 Normal The [facility] Comment on above: Order Comment: No: D o not add to previous draw Result Comment: Chec ked by Mayra Encinas M.D. Performed By: #### 5 7307, 23701 #### [facility] [address] PHOSPHORUS BLOODon 1 Phosphate [Mass/Vol] 3.4 mg/dL Normal 2.5-5.0 The [facility] Comment on above: Order Comment: No: D o not add to previous draw Performed By: #### 5 7307, 17851 #### [facility] [address] [facility] [address] PROTHROMBIN TIMEon 1 INR Coag (PPP) [Relative time] 1.01 {INR} Normal 0.91-1.16 The [facility] Comment on above: Order Comment: No: [...] CHEST 1995;108:231S-246S. Performed By: #### 5 7307, 80094 #### [facility] [address] [place] [address], [facility] PT Coag (PPP) [Time] 13.3 s Normal 12.3-14.8 [facility] Comment on above: Order Comment: No: D o not add to previous draw Result Comment: ALL RESULTS MUST BE INTERPRETED WITH RESPECT TO BLOOD DRAWING ARTIFACT OR DILUTION ERROR OF ANTICOAGULANT AT THE TIME OF SAMPLING. Performed By: #### 5 7307, 15581 #### [facility] [address] RETICULOCYTE PANELon 11-11-2 021 ABSOLUTE RETICULOCYTE 0.0711 10*6/uL Normal 0.02 50-0.10 00 [facility] Comment on above: Order Comment: No: D o not add to previous draw Performed By: #### 5 73, 94152 #### [facility] [address] IMMATURE RETICULOCYTE FRACTION 12.8 % Normal 2.0-16.0 The [facility] Comment on above: Order Comment: No: D o not add to previous draw Performed By: #### 5 73, 53956 #### [facility] [address] [place] [address], [facility] RETIC COUNT 2.37 % High 0.50-1.80 The [facility] Comment on above: Order Comment: No: D o not add to previous draw Performed By: #### 5 7307, 14612 #### [facility] [address] [place] [address], [facility] RETICULOCYTE HEMOGLOBIN 37.5 pg High 28.0-36.0 T he [facility] Comment on above: Order Comment: No: D o not add to previous draw Performed By: #### 5 7307, 53950 #### [facility] [address] TIBC- INCLUDES IRONon 2020 FE SATURATION 16 % Low 20-[address] [facility] Comment on above: Order Comment: No: D o not add to previous draw Performed By: #### 8 4044, 17354, 70936, 19595, 55449, 14968 ####[facility] Iron [Mass/Vol] 54 ug/dL Normal 50-212 The [facility] Comment on above: Order Comment: No: D o not add to previous draw Performed By: #### 8 4044, 64998, 79236, 09473, 95545, 28183 ####[facility] TIBC 332 mcg/dL Normal 250-450 The [facility] Comment on above: Order Comment: No: D o not add to previous draw Performed By: #### 8 4044, 24565, 43190, 90843, 81358, 07996 ####[facility] UIBC 278 mcg/dL Normal 155-355 The [facility] Comment on above: Order Comment: No: D o not add to previous draw Performed By: #### 8 4044, 74688, 33849, 70422, 47214, 23583 ####[facility] TSH3 WITH REFLEX FT4on 04-22 TSH 3RD GENERATION 1.72 uIU/mL Normal 0.34-5.60 [facility] Comment on above: Performed By: #### 8 4044, 04861, 72577, 20132, 87938, 24605 ####[facility] VITAMIN B12on 04-22-2021 Cobalamin (Vitamin B12) [Mass/Vol] 771 pg/mL Normal 180-914 The [facility] Comment on above: Order Comment: No: D o not add to previous drawPt using restroom Result Comment: REFE STEVEN RANGES: 180-914 pg/mL Normal 145-179 pg/mL Indeterminate <145 pg/mL Deficient Performed By: #### 8 4044, 33296, 07785, 26183, 80703, 83391 ####[place] [id number] Vital Signs Date Time Vital Sign Value Performing Clinician Facility 02-05-2025 12:36-0400 Body height 165.[address] Mehta MD Work Phone: [facility] 02-05-2025 12:36-0400 Body mass index (BMI) [Ratio] 40.7 kg/m2 Ave Mehta MD Work Phone: [facility] 02-05-2025 12:36-0400 Body weight 111.[address] Mehta MD Work Phone: [facility] 02-05-2025 12:36-0400 Diastolic blood pressure 78 mm[Hg] Ave Mehta MD Work Phone: [facility] 02-05-2025 12:36-0400 Heart rate 76 /min Ave Mehta MD Work Phone: [facility] 02-05-2025 12:36-0400 Systolic blood pressure 126 mm[Hg] Ave Mehta MD Work Phone: [facility] 10-06-2021 14:00-0400 Body height 165.1 cm Gunnar Fernandez Other [employer] Other 10-06-2021 14:00-0400 Body mass index (BMI) [Ratio] 40.77 kg/m2 Gunnar Fernandez Other [employer] Other 10-06-2021 14:00-0400 Body weight 111.13 kg Gunnar Fernandez Other [facility] [employer] Other Encounters Encounter Date Encounter Type Care Provider Facility Start: 02-05-2025 End: 02-05-[address] Mehta MD Work Phone: [facility] Work Phone: Start: 02-05-2025 End: 02-05-2025 Patient encounter procedure Kristen White DO -[facility] Work Phone: Start: 01-13-2025 End: 01-15-2025 Evaluation and management of inpatient Jarrod Mahajan Facility:[facility] Start: 01-13-2025 Emergency department patient visit Facility:[facility] Start: 01-06-2025 ambulatory [facility] Start: 12-31-2024 End: 12-31-2024 ambulatory [facility] Start: 10-21-2024 ambulatory [facility] Start: 10-04-2024 ambulatory [facility] Start: 07-31-2024 End: 07-31-[address] Mehta MD Work Phone: [facility] [address] Work Phone: Start: 07-31-2024 End: 07-31-[address] Mehta MD Work Phone: [facility] Work Phone: Start: 05-21-2024 End: 05-21-2024 ambulatory [facility] Start: 03-20-2023 End: 03-21-2023 ambulatory Ирина Gibson MD Facility:[facility] Start: 01-23-2023 End: 01-24-2023 ambulatory Ирина Gibson MD Facility:[facility] Start: 01-09-2023 End: 01-10-2023 ambulatory Ирина Gibson MD Facility:[facility] Start: 12-12-2022 End: 12-13-2022 ambulatory Ирина Gibson MD Facility:[facility] Start: 10-25-2022 ambulatory LEÓN DIAS Faci lity:[facility]1 Start: 10-14-2022 End: 10-14-2022 ambulatory LEONIE COYLE Facility:[facility] Start: 09-23-2022 End: 09-24-2022 [facility] Start: 09-14-2022 End: 09-15-[address] [...] 03-30-2022 End: 03-30-2022 ambulatory Rancho Chamorro Other [employer] Other Start: 03-30-2022 Telephone encounter Rancho BAKER [facility] Start: 03-28-2022 End: 03-29-[address] MEHTA . Facility:[facility] Start: 03-27-[address] MEHTA . Facili ty:[facility]1 Start: 03-24-2022 Office outpatient vi sit 25 minutes Rancho Chamorro [facility] Start: 03-24-2022 End: 04-03-2022 ambulatory UNKNOWN PROVIDER [employer] Other Start: 03-16-2022 End: 03-16-2022 ambulatory Rancho Chamorro Other [employer] Other Start: 03-16-2022 Telephone encounter [facility]o [facility] Start: 03-11-2022 End: 03-12-2022 [facility] Start: 02-18-2022 End: 02-19-2022 [facility] Start: 02-11-2022 End: 02-12-[address] MEHTA . Facility:[facility] Start: 01-28-2022 End: 01-29-2022 [facility] Start: 01-11-2022 End: 01-12-[address] MEHTA . Facility:[facility] Start: 01-04-2022 End: 01-05-2022 ambulatory LEÓN Tejada [facility] Facility:[facility]1 Start: 12-23-2021 End: 12-23-2021 ambulatory Rancho Chamorro Other [employer] Other Start: 12-23-2021 Office outpatient vi sit 25 minutes Rancho Chamorro [facility] Start: 12-20-2021 End: 12-21-2021 [facility] Start: 12-13-2021 End: 12-14-2021 Evaluation and management of inpatient DR AVE MEHTA . Facility:[facility] Start: 12-07-2021 [facility]: 12-06-2021 End: 12-06-2021 [facility] Start: 12-05-2021 End: 12-05-[address] MEHTA . Facility:[facility]1 Start: 12-02-2021 End: 12-03-2021 ambulatory LEÓN Tejada [facility] Facility:H1 Start: 12-02-2021 End: 12-03-2021 Encounter for preprocedural cardiovascular examination LEÓN DIAS Facility:[facility]1 Start: 11-30-2021 End: 12-01-2021 ambulatory LEÓN DIAS Facility:[facility]1 Start: 11-29-2021 End: 11-29-2021 ambulatory MIRNA PARSONS . Facility:[facility]1 Start: 11-17-2021 End: 11-17-2021 ambulatory Rancho Chamorro Other [employer] Other Start: 11-17-2021 Office outpatient vi sit 15 minutes Emilie Perez [facility] Start: 11-17-2021 Telephone encounter Rancho BAKER [facility] Start: 11-04-2021 End: 11-04-2021 ambulatory Rancho Chamorro Other [employer] Other Start: 11-04-2021 Telephone encounter Rancho BAKER G [facility] Start: 11-03-2021 (Procedure) Short Rancho Chamorro [facility] Start: 11-03-2021 End: 11-03-2021 ambulatory Rancho Chamorro Other [employer] Other Start: 11-03-2021 Office outpatient vi sit 25 minutes Emilie Perez [facility] Start: 10-28-2021 End: 10-28-2021 ambulatory Rancho Chamorro Other [employer] Other Start: 10-28-2021 Office outpatient vi sit 25 minutes Rancho Chamorro [facility] Start: 10-07-2021 End: 10-07-2021 ambulatory Gunnar Fernandez Other [employer] Other Start: 10-07-2021 Telephone encounter Gunnar BAKER G [facility] Start: 10-06-2021 End: 10-06-2021 ambulatory Gunnar Fernandez Other [employer] [facility] Other Start: 10-06-2021 Office outpatient vi sit 15 minutes Gunnar Fernandez [facility] Start: 09-08-2021 End: 09-08-2021 ambulatory Gunnar Fernandez Other [employer] Other Start: 09-08-2021 Office outpatient vi sit 15 minutes Gunnar Fernandez [facility] Start: 04-22-2021 End: 04-29-2021 Evaluation and management of inpatient ROBERTA DANE Facility:[facility] Procedures Date Procedure Procedure Detail Performing Clinician Start: 12-12-2021 Transfusion of Nonau tologous Red Blood Cells into Peripheral Vein, Percutaneous Approach DR AVE MEHTA . Plan of Treatment Date Care Activity Detail Author Start: 07-31-2024 Aldolase measurement [facility] Start: 07-31-2024 Hemolytic complement CH50 level [facility] Start: 07-31-2024 Hepatitis B core ant ibody measurement [facility] Start: 07-31-2024 [facility] Angiotensin converti ng enzyme [Enzymatic activity/volume] in Serum or Plasma [facility] Chromatin Ab [Units/ volume] in Serum or Plasma [facility] Complement C3 [Mass/ volume] in Serum or Plasma [facility] Complement C4 [Mass/ volume] in Serum or Plasma [facility] Hepatitis B virus hernandez rface Ab [Presence] in Serum [facility] Hepatitis B virus hernandez rface Ag [Presence] in Serum or Plasma by Immunoassay [facility] Hepatitis C virus Ig G Ab [Presence] in Serum or Plasma by Immunoassay [facility] Homogenous nuclear A b pattern [Titer] in Serum [facility] Nuclear Ab [Titer] in Serum [facility] Reagin Ab [Presence] in Serum by RPR [facility] Thyroglobulin Ab [Un its/volume] in Serum or Plasma [facility] Thyroperoxidase Ab [ Units/volume] in Serum or Plasma [facility] Immunizations Immunization Date Immunization Notes Care Provider Fa cility 07-13-2020 COVID-19 mRNA, Comirnaty (Pfizer) Ave Mehta MD Work Phone: [facility] 06-19-2020 COVID-19 mRNA, Comirnaty (Pfizer) Ave Mehta MD Work Phone: [facility] Payers Date Payer Category Payer Medicare [id number] 2025 Unknown [id number] 2024 Self-pay 2023 Medicaid [id number] 2022 Medicare 2022 Unknown 2002 Medicare [id number] 1959 Medicare [id number] 1959 Self-pay [id number] 1959 Unknown [id number] 1950 Unknown [id number] 2.16.8 40.1.658018.3.579.2.647 1948 Unknown [id number] 2.16. 840.1.673633.3.579.2.732 1950 Unknown [id number] 2.16.84 0.1.166847.3.579.2.593 1948 Unknown [id number] 2.16.84 0.1.470095.3.579.2.593 1948 Unknown [id number] 2.16.84 0.1.735863.3.579.2.593 1948 Unknown [id number] 2.16.84 0.1.134811.3.579.2.593 1948 Unknown [id number] 2.16.84 0.1.473923.3.579.2.593 1948 Unknown [id number] 2.16.84 0.1.590002.3.579.2.593 1948 Unknown [id number] 2.16.84 0.1.761225.3.579.2.593 1948 Unknown [id number] 2.16.84 0.1.219689.3.579.2.593 1948 Unknown [id number] 2.16.84 0.1.547522.3.579.2.593 1948 Unknown [id number] 2.16.84 0.1.312559.3.579.2.593 1948 Unknown [id number] 2.16.84 0.1.591111.3.579.2.593 1948 Unknown [id number] 2.16.84 0.1.954744.3.579.2.593 1948 Unknown [id number] 2.16.84 0.1.380690.3.579.2.593 1948 Unknown [id number] 2.16.84 0.1.330678.3.579.2.593 1948 Unknown [id number] 2.16.84 0.1.693831.3.579.2.593 1948 Unknown [id number] 2.16.84 0.1.414179.3.579.2.593 1948 Unknown [id number] 2.16.84 0.1.764604.3.579.2.593 1948 Unknown [id number] 2.16.84 0.1.977045.3.579.2.593 1948 Unknown [id number] 2.16.84 0.1.265236.3.579.2.593 1948 Unknown [id number] 2.16.84 0.1.963604.3.579.2.593 1948 Unknown [id number] 2.16.84 0.1.022644.3.579.2.593 1948 Unknown [id number] 2.16.84 0.1.692272.3.579.2.593 1948 Unknown [id number] 2.16.84 0.1.532654.3.579.2.593 1948 Unknown [id number] 2.16.84 0.1.322618.3.579.2.593 1948 Unknown [id number] 2.16.84 0.1.247066.3.579.2.593 1948 Unknown [id number] 2.16.84 0.1.384365.3.579.2.593 1948 Unknown [id number] 2.16.84 0.1.215682.3.579.2.593 1948 Unknown [id number] 2.16.84 0.1.290377.3.579.2.593 1948 Unknown [id number] 2.16. 840.1.547885.3.579.2.196 1948 Unknown [id number] 2.16. 840.1.356208.3.579.2.196 1948 Unknown [id number] 2.16. 840.1.991658.3.579.2.196 1948 Unknown [id number] 2.16. 840.1.995510.3.579.2.196 1948 Unknown [id number] 2.16.8 40.1.439272.3.579.2.727 1948 Unknown [id number] 2.16.8 40.1.585957.3.579.2.727 1948 Unknown [id number] 2.16.8 40.1.749733.3.579.2.727 1948 Unknown [id number] 2.16.8 40.1.989162.3.579.2.727 1948 Unknown [id number] 2.16.8 40.1.161678.3.579.2.727 1948 Unknown [id number] 2.16.8 40.1.348911.3.579.2.727 Unknown [id number] 2.16.84 0.1.741964.3.579.2.593 Unknown [id number] 2.16.8 40.1.813370.3.579.2.531 Social History Date Type Detail Facility Sex Assigned At [facility] [employer] [facility] Start: 11-07-2021 End: 11-07-2021 Tobacco smoking status NHIS Never smoked tobacco (finding) [facility] Start: 08-01-2024 Sex Female (finding) [facility] Start: 1950 Sex Assigned At Female F [facility] Clinical Notes 04-29-2021 to 01-20-2025 Note Date [...] Locations R1: This test was performed at: [facility], [address] [place] [address], [facility] , , [facility] Comment on above: Performed By: #### 1 [id number] #### [facility] [address] [place] [address] 01-20-2025 Note Microbiology PROCEDURE: Blood Culture Charcoal [R1] SOURCE: Blood BODY SITE: Wrist R COLLECTED DATE/TIME: 01/13/2025 15:02 EDT RECEIVED DATE/TIME: 01/13/2025 15:10 EDT START DATE/TIME: 01/13/2025 15:10 EDT FREE TEXT SOURCE: Bobo Ashraf, Brittny Broussard M.D., Brittny Mejia FINAL REPORTS Final Report [] Verified Date/Time: 01/20/2025 15:55 EDT No growth at 7 days. Performing Locations R1: This test was performed at: [facility], [address] [place] [address], [id number] , [place], [facility] Comment on above: Performed By: #### 1 [id number] #### [facility] [address] [place] [id number] 01-15-2025 Note Discharge Summary Admission and Discharge Information Admit Date/Time:01/13/2025 15:12 Admitting Physician - Jarrod Mahajan III, DO Consulting Physician - Marino Roe MD [facility] Wound, XXXX Admitting Diagnoses: Discharge Diagnoses 1. [...] vitamin D deficiency who was brought to [facility] on 01/13/2025 after being found unresponsive at [facility]. Stroke alert was called in the [...] discharge. Sepsis: Treated for recent pneumonia at [facility] possibly aspiration. Also has chronic lower extremity wounds. Met sepsis criteria with source being either lower extremity wounds and/or pneumonia. Started on Vanco, Zosyn, azithromycin. Vancomycin discontinued as nasal MRSA screening was negative. Patient's white blood cell count down trended. Patient was still on oxygen from her previous admission at [facility]. She completed 3 days of azithromycin IV [...] thoughts. Tests Performe (more content not included)... [facility] Comment on above: Result Comment: Elec tronically Signed By: Jarrod Mahajan III, DO\.br\Date and Time Signed: 01/15/25 11:03 EDT 01-15-2025 Note Progress Note-Physic jessica Assessment/Plan ASSESSMENT: Reportedly unresponsive at the [place]. Not sure what this means. I do [...] baseline. Waiting to go back to the [place]. Review of Systems GEN: No fevers or [...] is alert. Attention mildly impaired. Oriented to Rider Milam, January,. LANG: Speech is somewhat hypophonic, monotone. [...] Lymph Auto: 7.1 % Low (01/15/25 04:57:00) Hughes Auto: 8.5 % (01/15/25 04:57:00) Eos Auto: 7 % (01/15/25 04:57:00) Basophil Auto: 0.7 % (01/15/25 04:57:00) Neutro Absolute: 9.4 E9/L High (01/15/25 04:57:00) Lymph Absolute: 0.9 E9/L Low (01/15/25 04:57:00) Hughes Absolute: 1 E9/L (01/15/25 04:57:00) Eos Absolute: 0.9 E9/L High (01/15/25 04:57:00) Basophil Absolute: 0.1 E9/L (01/15/25 04:57:00) Glucose Lvl: 94 mg/dL (01/15/25 04:57:00) BUN: 23 mg/dL High ( (more content not included)... [facility] Comment on above: Result Comment: Elec tronically Signed By: Celia Duncan RN\.br\Date and Time Signed: 01/15/25 06:56 EDT\.br\Electronically Co-Signed [...] vitamin D deficiency who was brought to [facility] on 01/13/2025 after being found unresponsive at [facility]. Treated for recent pneumonia at [facility] possibly aspiration. Also has chronic lower extremity [...] cultures drawn in ER Broad-spectrum antibiotics???Zosyn, azithromycin 01/14 -nasal MRSA negative. Discontinued vancomycin. Check sputum culture, check strep and Legionella urine antigens COVID, respiratory PCR, and MRSA screening all negative Ordered: Basic Metabolic Panel CBC w/ Auto Diff CBC w/ Auto Diff Comprehensive Metabolic Panel eGFR Sbsq Hospital Care/Day Moderate 35 Minutes 36472 2. Pneumonia (J18.9: Pneumonia, unspecified organism) Treatment [...] She recently had an ASHLEY on recent [place] admission and had downtrended to 1.6. Will [...] escitalopram, 10 mg (more content not included)... [facility] Comment on above: Result Comment: Elec tronically Signed By: Jarrod Mahajan III, DO\.br\Date and Time Signed: 01/14/25 16:48 EDT 01-14-2025 Note Echocardiology Procedure Exam Date/Time Accession # Ordering Echo Transthoracic w/ 01/14/2025 11:49 EDT [id number] Jarrod Mahajan III, DO CPT code 55015 C8929 Reason for Exam (Echo Transthoracic w/ Contrast) Congestive Heart Failure Report [facility] [address] [place] [address] Adult Echocardiogram Report Name: LINDA NASCIMENTO Study Date: 01/14/2025 11:05 AM BP: 144/96 mmHg Patient Location: N204 01 HR: 62 : 1950 Gender: Female Height: 65 in Age: 74 yrs Ethnicity: [facility] Weight: 287 lb Reason For Study: Congestive Heart Failure BSA: 2.3 m2 History: Pacemaker, AFIB, CAD, Sarcoidosis, CKD, Seizures, Retinal artery occlusion Ordering Physician: Jarrod Mahajan Performed By: Kami Ruiz [facility] Interpretation Summary The left ventricle is normal [...] Alvarado MD Transcribed by: MARYSE Technologist: LENI [facility] 01-13-2025 Note History and Physical Basic Information [...] vitamin D deficiency who was brought to [facility] on 01/13/2025 after being found unresponsive at [facility]. Stroke alert was called in ER. On record review, patient recently treated for an aspiration pneumonia at [facility] and was seemingly still on outpatient oral [...] me that she chronically lives at this [facility]. She is pleasant and conversational. She [...] Lymph Auto: 5.2 % Low (01/13/25 13:19:00) Hughes Auto: 2.2 % Low (01/13/25 13:19:00) Eos Auto: 0.4 % (01/13/25 13:19:00) Basophil Auto: 0.5 % (01/13/25 13:19:00) Neutro Absolute: 12.6 E9/L High (01/13/25 13:19:00) Lymph Absolute: 0.7 E9/L Low (01/13/25 13:19:00) Hughes Absolute: 0.3 E9/L (01/13/25 13:19:00) Eos Absolute: [...] 16 (01/13/25 13:19:00) Sodium Lvl: 139 mmol/L (01/13/ (more content not included)... [facility] Comment on above: Result Comment: Elec tronically Signed By: Jarrod Mahajan III, DO\Date and Time Signed: 01/13/25 21:14 EDT 01-13-2025 [...] next level is scheduled for 1600 on 01/14. . MRSA NASAL SWAB A MRSA Nasal [...] Lymph Auto: 5.2 % Low (01/13/25 13:19:00) Hughes Auto: 2.2 % Low (01/13/25 13:19:00) Eos Auto: 0.4 % (01/13/25 13:19:00) Basophil Auto: 0.5 % (01/13/25 13:19:00) Neutro Absolute: 12.6 E9/L High (01/13/25 13:19:00) Lymph Absolute: 0.7 E9/L Low (01/13/25 13:19:00) Hughes Absolute: 0.3 E9/L (01/13/25 13:19:00) Eos Absolute: [...] 14:18:00) UA Leuk Est: Negat (01/13/25 14:18:00) [facility] 12-31-2024 Note NV Electrophysiology Consult Note [facility] Cardiology [facility] Reason for visit: Afib 12/31/24 Patient is here today for a device check and a follow up appointment. Patient states her chest hurts due to fluid in her chest, patient states the nurse at the [facility] told her she doesn't have pneumonia. Patient [...] with prior history of transferred from an [facility] to [facility] following a fall that she sustained. She was noted to be bradycardic and EKG at that time showed her to have bradycardia in the rate of 30s following admission to [facility] she was noted to have a [...] ANGIOGRAM W AND/OR WO IV CONTRAST 04/23/[address] [facility] [address] IMAGING CTA CHEST W IV CONTRAST 04/23/2022 CT CHEST ANGIOGRAM W AND/OR WO IV CONTRAST 04/23/[address] [facility] [address] IMAGING TONSILLECTO (more content not included)... [facility] 05-21-2024 Note NV Electrophysiology Consult Note [facility] Cardiology [facility] Reason for visit: 05/21/24 Pt [...] with prior history of transferred from an [facility] to [facility] following a fall that she sustained. She was noted to be bradycardic and EKG at that time showed her to have bradycardia in the rate of 30s following admission to [facility] she was noted to have a [...] anemia 04/23/2022 Sarcoidosis 11/18/2013 Sinus node dysfunction ([facility]) 04/23/2022 PSH: Past Surgical History: Procedure Laterality Date CARDIAC CATHETERIZATION CARDIAC PACEMAKER PLACEMENT COLONOSCOPY CT AORTA AND BILATERAL ILIOFEMORAL RUNOFF ANGIOGRAM W AND/OR WO IV CONTRAST 04/23/2022 CT AORTA AND BILATERAL ILIOFEMORAL RUNOFF ANGIOGRAM W AND/OR WO IV CONTRAST 04/23/[address] [facility] [address] IMAGING CT CHEST ANGIOGRAM W AND/OR WO IV CONTRAST 04/23/2022 CT CHEST ANGIOGRAM W AND/OR WO IV CONTRAST 04/23/[address] [facility] [address] IMAGING TONSILLECTOMY SH: Social Determinants [...] Unkn (more content not included)... [facility] 03-30-2022 Evaluation note Encounter Date Diagnosis Assessment Notes Mar, Other spondylosis with radiculopathy, lumbar region (ICD-10 - M47.26) [facility] Other 10-13-2022 Evaluation note* Encounter Date Diagnosis [...] note writ ten by Summer Molina LPN, Licensed Pesticide [employer]ator. Edited and approved by Dr. Rancho Chamorro MD. [facility] Other 10-05-2022 Evaluation note* Encounter Date Diagnosis Assessment Notes Treatment Notes Treatment Clinical Notes Mar, Other low back pain (ICD-10 - M54.59) [facility] Other 07-14-2022 Evaluation note* Encounter Date Diagnosis [...] note writ ten by Mika Villalobos MA, Licensed Pesticide Applicator. Edited and approved by Dr. Rancho Chamorro MD. [facility] Other 06-08-2022 Evaluation note* Encounter Date Diagnosis [...] note writ ten by Mika Villalobos MA, Licensed Pesticide Applicator. Edited and approved by Dr. Rancho Chamorro MD. [facility] Other 06-08-2022 Evaluation note* Encounter Date Diagnosis [...] four weeks, case discussed with Dr. Diaz [facility] has been contacted and will consult wound care. [facility] Other 05-25-2022 Evaluation note* Encounter Date Diagnosis [...] for Keflex BID x 14 days and [place]. Patient and sister instructed to contact office with any signs of infection or significant changes [employer] Other 05-19-2022 Evaluation note* Encounter Date Diagnosis [...] note writ ten by Summer Molina LPN, Licensed Pesticide Applicator. Edited and approved by Dr. Rancho Chamorro MD. [facility] Other 04-28-2022 Evaluation note* Encounter Date Diagnosis Assessment Notes Treatment Notes Treatment Clinical Notes Sep, Pacemaker (ICD-10 - Z95.0) [facility] Other 04-27-2022 Evaluation note* Encounter Date Diagnosis [...] spinal osteoarthritis complication status (ICD-10 - M47.816) [facility] Other 03-30-2022 Evaluation note* Encounter Date Diagnosis [...] D. To call with questions or concerns. [employer] Other 11-18-2021 NoteMR#: [id number] [facility] Pt. Name: Linda Nascimento Admitted: 04/21/2021 [...] a 70-year-old female, [facility]. She reported to [...] The patient was subsequently transferred to the [facility] for higher level of care. Cardiology [...] Lozada MD Date Trans: 04/29/2021 12:17 P/roni [id number] cc: Leslie Arroyo M.D. [address] [place] [address]. [address] [facility] [address] [place] [address]FmfFayette County Memorial HospitalEvaluation noteNo InformationNortGuthrie Clinic [facility] Other Evaluation noteNo assessment information available [facility] Work Phone: Evaluation note* Diagnosis Onset Date Resolution Status Admit Date Stroke-like symptoms noneactive Augu 2024 12:30pm [facility] Work Phone: History general Narrative - Reported* Type Description Date Medical History bipolar Medical History Arthritis Medical History high blood pressure Medical History chronic depression Medical History iron deficiency anemia Medical History kidney disease Medical History hyperlipidemia Medical History anxiety Medical History vitamin D deficiency Surgical History tonsillectomy Surgical History laparoscopy Hospitalization History depression [facility] Other Reason for referral (narrative)No reason for referral information availableOhiohealth Grant Medical Center Work Phone: Summary Purpose Family History Relationship Condition Age at Onset Recorded Date/T hilaria Not Specified No pertinent family history Unknown father Unknown mother Malignant neoplasm Unknown Unknown Advance Directives Advance Directive Response Recorded Date/ Time Advance Directives Yes February 1:04pm Advance Directive Response Recorded Date/ Time Advance Directives Yes February 2:04pm Chief Complaint and Reason for Visit Chief Complaint Admit Date R76.0 SARCOIDOSIS/OA/MEDS/CKD4 July 31, 2024 9:54am Reason for Visit Admit Date Stroke-like symptoms February 05, 2025 1 2:30pm Additional Source Comments INFORMATION SOURCE (unrecogn ized section and content) DATE CREATED AUTHOR 05/30/[address] [facility] DATE CREATED AUTHOR AUTHOR'S ORGANIZ ATION 04/05/2022 [id number] DATE CREATED AUTHOR AUTHOR'S ORGANIZ ATION 10/19/2022 [facility] DATE CREATED AUTHOR AUTHOR'S ORGANIZ ATION 03/27/2023 [facility] DATE CREATED AUTHOR AUTHOR'S ORGANIZ ATION 05/10/2024 [facility] DATE CREATED AUTHOR AUTHOR'S ORGANIZ ATION 08/09/2024 [facility] DATE CREATED AUTHOR AUTHOR'S ORGANIZ ATION 01/15/2025 [facility] DATE CREATED AUTHOR AUTHOR'S ORGANIZ ATION 01/16/2025 [facility] DATE CREATED AUTHOR AUTHOR'S ORGANIZ ATION 01/17/2025 [facility] DATE CREATED AUTHOR AUTHOR'S ORGANIZ ATION 01/18/2025 [facility] DATE CREATED AUTHOR AUTHOR'S ORGANIZ ATION 01/19/2025 [facility] DATE CREATED AUTHOR AUTHOR'S ORGANIZ ATION 01/21/2025 [facility] REASON FOR VISIT (unrecogniz [...] July 31, 2024 End: July 31, 2024 Team Status: Inactive Member Role Status Dates Ave Mehta MD Primary Care Provider Active Start: February 05, 2025 End: February 05, 2025 Kristen White DO Attending Provider Active Sta rt: February 05, 2025 End: February 05, 2025 Goals (unrecognized section and content) Goals may [...] BE BASED ON THE PRIMARY CLINICAL RECORDS. [facility]. provides no warranty or guarantee of the accuracy or completeness of information in this document.
--- NOTE | 2025-02-08 21:37 | ED.GENADUL1 ---
HPI HPI - General Adult General Chief complaint: Fall Stated complaint: Fall Time Seen by Provider: 02/08/25 21:23 Source: patient Mode of arrival: ambulance Limitations: no limitations History of Present Illness HPI narrative: patient resident of alf. States she was transferring from her walker to the wheelchair when she fell. Injury to her right elbow and knee. Found to be hypotensive and brought to the ER. Also injured right knee when she fell. Denies striking her head. No nausea or vomiting. Reportedly has UTI Related Data Home Medications ?Medication ?Instructions ?Recorded ?Confirmed apixaban 5 mg tablet (Eliquis) 5 mg PO BID 11/15/22 02/08/25 baclofen 10 mg tablet 10 mg PO DAILY@1400 11/15/22 02/08/25 dapagliflozin propanediol 10 mg 10 mg PO DAILY 11/15/22 02/08/25 tablet (Farxiga) escitalopram oxalate 10 mg tablet 10 mg PO DAILY 11/15/22 02/08/25 (Lexapro) ferrous sulfate 325 mg (65 mg 325 mg PO DAILY 11/15/22 02/08/25 iron) tablet (Feosol) lamotrigine 150 mg tablet 150 mg PO DAILY 11/15/22 02/08/25 losartan 25 mg tablet 25 mg PO DAILY 11/15/22 02/08/25 multivitamin with iron 1 tab PO DAILY 11/15/22 02/08/25 pantoprazole 40 mg tablet,delayed 40 mg PO DAILY 11/15/22 02/08/25 release polyethylene glycol 3350 17 gram 17 g PO DAILY PRN laxative 11/15/22 02/08/25 oral powder packet (Miralax) potassium chloride 10 mEq 10 meq PO BID 11/15/22 02/08/25 tablet,extended release tamsulosin 0.4 mg capsule 0.4 mg PO .QHS 11/15/22 02/08/25 baclofen 20 mg tablet 20 mg PO QAM 11/16/22 02/08/25 acetaminophen 325 mg capsule 650 mg PO Q6H PRN pain 04/02/24 02/08/25 donepezil 10 mg tablet (Aricept) 10 mg PO .QHS 04/02/24 02/08/25 furosemide 20 mg tablet 60 mg PO DAILY 04/02/24 02/08/25 olanzapine 15 mg tablet 15 mg PO .QHS 04/02/24 02/08/25 venlafaxine 150 mg 150 mg PO DAILY 04/02/24 02/08/25 capsule,extended release 24 hr (Effexor XR) ciprofloxacin HCl 500 mg tablet 500 mg PO BID 02/08/25 02/08/25 (Cipro) Previous Rx's ?Medication ?Instructions ?Recorded carvedilol 6.25 mg tablet 6.25 mg PO BID #0 tabs 01/10/25 clonazepam 0.5 mg tablet 0.5 mg PO TID 5 days #15 tabs 01/10/25 fentanyl 50 mcg/hr transdermal 1 patch transdermal Q72H 6 days #2 01/10/25 patch ea hydrocodone 7.5 mg-acetaminophen 1 tab PO TID PRN PAIN 7-10 5 days 01/10/25 325 mg tablet #15 tabs spironolactone 25 mg tablet 12.5 mg (1/2 x 25 mg) PO DAILY #30 01/10/25 tabs Allergies Allergy/AdvReac Type Severity Reaction Status Date / Time cephalexin Allergy Unknown Verified 02/08/25 21:32 Opioid HPI Opioid Management Most Recent Opioid Data: Last Pain Scale 5 04/04/24, 12:00 Last ORT Total Score 2 01/06/25, 09:16 Last ORT Risk Category Low Risk 01/06/25, 09:16 Review of Systems ROS Status of ROS 10 or more systems reviewed and unremarkable except as noted in history and below [facility] Medical History (Updated 02/08/25 @ 22:58 by Speedy Weaver MD) Acute hypoxic respiratory failure ?J96.01 - Acute respiratory failure with hypoxia (ICD-10) Atrial fibrillation ?I48.91 - Unspecified atrial fibrillation (ICD-10) Venous ulcer ?I83.009 - Varicose veins of unspecified lower extremity with ulcer of unspecified site (ICD-10) ?L97.909 - Non-pressure chronic ulcer of unspecified part of unspecified lower leg with unspecified severity (ICD-10) Bipolar disorder ?F31.9 - Bipolar disorder, unspecified (ICD-10) 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 - Syndrome of inappropriate secretion of antidiuretic hormone (ICD-10) Hyponatremia ?E87.1 - Hypo-osmolality and hyponatremia (ICD-10) Bronchitis ?J40 - Bronchitis, not specified as acute or chronic (ICD-10) Knee effusion ?M25.469 - Effusion, unspecified knee (ICD-10) Gastrointestinal hemorrhage ?K92.2 - Gastrointestinal hemorrhage, unspecified (ICD-10) Venous insufficiency ?I87.2 - Venous insufficiency (chronic) (peripheral) (ICD-10) Dehydration ?E86.0 - Dehydration (ICD-10) Hypomagnesemia ?E83.42 - Hypomagnesemia (ICD-10) Acute kidney failure ?N17.9 - Acute kidney failure, unspecified (ICD-10) UTI (urinary tract infection) ?N39.0 - Urinary tract infection, site not specified (ICD-10) Cellulitis ?L03.90 - Cellulitis, unspecified (ICD-10) Encephalopathy ?G93.40 - Encephalopathy, unspecified (ICD-10) Venous ulcer of right leg ?I83.019 - Varicose veins of right lower extremity with ulcer of unspecified site (ICD-10) ?L97.919 - Non-pressure chronic ulcer of unspecified part of right lower leg with unspecified severity (ICD-10) Venous ulcer of left leg ?I83.029 - Varicose veins of left lower extremity with ulcer of unspecified site (ICD-10) ?L97.929 - Non-pressure chronic ulcer of unspecified part of left lower leg with unspecified severity (ICD-10) GERD (gastroesophageal reflux disease) ?K21.9 - Gastro-esophageal reflux disease without esophagitis (ICD-10) Paroxysmal A-fib ?I48.0 - Paroxysmal atrial fibrillation (ICD-10) Myocardial infarction ?I21.9 - Acute myocardial infarction, unspecified (ICD-10) Bipolar 1 disorder, manic, mild ?F31.11 - Bipolar disorder, current episode manic without psychotic features, mild (ICD-10) Vitamin D deficiency ?E55.9 - Vitamin D deficiency, unspecified (ICD-10) CKD (chronic kidney disease) stage 2, GFR 60-89 ml/min ?N18.2 - Chronic kidney disease, stage 2 (mild) (ICD-10) Shock therapy as the cause of abnormal reaction of patient or of later complication without misadventure at time of procedure ?Y84.3 - Shock therapy as the cause of abnormal reaction of the patient, or of later complication, without mention of misadventure at the time of the procedure (ICD-10) Normal colonoscopy Pacemaker ?Z95.0 - Presence of cardiac pacemaker (ICD-10) Hematoma of lower leg ?S80.10XA - Contusion of unspecified lower leg, initial encounter (ICD-10) HTN (hypertension) ?I10 - Essential (primary) hypertension (ICD-10) Sarcoidosis ?D86.9 - Sarcoidosis, unspecified (ICD-10) Seizures ?R56.9 - Unspecified convulsions (ICD-10) Anemia ?D64.9 - Anemia, unspecified (ICD-10) Arthritis ?M19.90 - Unspecified osteoarthritis, unspecified site (ICD-10) Surgical History Hx of tonsillectomy ?Z90.89 - Acquired absence of other organs (ICD-10) H/O exploratory laparotomy ?Z98.890 - Other specified postprocedural states (ICD-10) Family History (Updated 01/06/25 @ 09:14 by Stephany Benavides RN) Mother Family history of cancer Social History (Updated 04/04/24 @ 08:15 by Erin Sanz) Within the past year, how often did you have a drink containing alcohol: never Score interpretation: A score less than 3 is consistent with normal alcohol consumption. Smoking status: Never smoker Non-prescribed substance use: denies use Highest level of school completed/degree received: high school graduate Little interest or pleasure in doing things: not at all Feeling down, depressed, or hopeless: not at all Exam Constitutional Vital Signs, click to edit/add: Last Vital Signs Temp 97.8 F 02/08/25 21:18 Pulse 69 02/08/25 21:18 Resp 18 02/08/25 21:18 BP 127/81 02/08/25 22:16 Pulse Ox 95 02/08/25 22:16 O2 Del Method Room Air 02/08/25 22:00 O2 Flow Rate 2 02/08/25 22:00 Common normals: no apparent distress, oriented x3, healthy appearing, alert and well nourished [facility] Common normals: normocephalic and head/scalp atraumatic Eye Common normals: EOMs intact bilaterally and conjunctivae normal Neck & C-Spine Common normals: full ROM Chest Common normals: inspection of chest normal and palpation of chest normal Respiratory Common normals: normal respiratory effort, no retractions, no use of accessory muscles and clear to auscultation bilaterally Cardio Common normals: regular rate, regular rhythm, S1 normal heart sound and S2 normal heart sound GI Common normals: Normal to inspection, nondistended, normoactive bowel sounds present, soft to palpation and non-tender Extremity Other: mild tenderness right knee. able to flex and extend without pain has dressing on right elbow. no swelling or deformity. No pain with flexion or extension. left tibia area with superficial wound(patient states is chronic) Neuro Common normals: oriented x3 and moves all extremities Psych Appearance: grossly normal Course Vital Signs Vital signs: Vital Signs Temperature 97.8 F 02/08/25 21:18 Pulse Rate 69 02/08/25 21:18 Respiratory Rate 18 02/08/25 21:18 Blood Pressure 92/64 02/08/25 21:18 Pulse Oximetry 92 L 02/08/25 21:18 Oxygen Delivery Method Room Air 02/08/25 21:18 Temperature 97.8 F 02/08/25 21:18 Pulse Rate 69 02/08/25 21:18 Respiratory Rate 18 02/08/25 21:18 Blood Pressure 127/81 02/08/25 22:16 Pulse Oximetry 95 02/08/25 22:16 Oxygen Delivery Method Room Air 02/08/25 22:00 Oxygen Delivery Flow Rate 2 02/08/25 22:00 Medical Decision Making MDM Narrative Medical decision making narrative: presents from alf after fall. Was trying to transfer from her walker to a wheelchair and fell. Minor injuries to right elbow and right knee. Found to be hypotensive on arrival with BP 92/64. IV fluids ordered. she responded to hydration and BP improved to 127 systolic. labs returned with positive UA and acute renal failure. lactic acid normal Discussed with the hospitalist and patient accepted for admission. Started on Cipro yesterday and Hospitalist would like to continue Cipro Lab Data Labs: Lab Results 02/08/25 02/08/25 Range/Units 21:50 22:15 WBC 9.8 (4.0-11.0) 10^3/uL RBC 3.38 L (4.20-5.40) 10^6/uL Hgb 11.9 L (12.0-16.0) g/dL Hct 35.8 L (36.0-48.0) % MCV 105.9 H (81.0-99.0) fL MCH 35.2 H (26.7-34.0) pg MCHC 33.2 (29.9-35.2) g/dL RDW 13.5 (11.0-15.0) % Plt Count 169 (150-450) 10^3/uL MPV 10.5 (9.5-13.5) fL Neut % (Auto) 79.4 H (43.0-75.0) % Lymph % (Auto) 8.2 L (20.5-60.0) % [place] % (Auto) 6.5 (1.7-12.0) % Eos % (Auto) 4.9 (0.9-7.0) % Baso % (Auto) 0.4 (0.2-2.0) % Neut # (Auto) 7.8 H (1.4-6.5) 10^3/uL Lymph # (Auto) 0.8 L (1.2-3.8) 10^3/uL [place] # (Auto) 0.6 (0.3-0.8) 10^3/uL Eos # (Auto) 0.5 (0.0-0.7) 10^3/uL Baso # (Auto) 0.0 (0.0-0.1) 10^3/uL Abs Immat Gran (auto) 0.06 H (0.00-0.03) 10^3/uL Imm/Tot Granulo (auto) 0.6 H (0.0-0.5) % Sodium 139 (136-145) mmol/L Potassium 3.8 (3.5-5.1) mmol/L Chloride 100 (98-107) mmol/L Carbon Dioxide 28.1 (21.0-32.0) mmol/L Anion Gap 14.7 BUN 24.0 H (7.0-18.0) mg/dL Creatinine 2.39 H (0.55-1.02) mg/dL Est GFR ( Amer) 24 L (>=60 mL/min/1.73m^2) Est GFR (Non-Af Amer) 20 L (>=60 mL/min/1.73m^2) BUN/Creatinine Ratio 10.0 Glucose 133 H (74-106) mg/dL Lactate 1.8 (0.4-2.0) mmol/L Calcium 9.3 (8.5-10.1) mg/dL Troponin I High Sens 15.6 (4.0-51.3) pg/mL Urine Color Lt. yellow (YELLOW) Urine Clarity Clear (CLEAR) Urine pH 6.0 (5.0-9.0) Ur Specific [place] <=1.005 A (1.005-1.025) Urine Protein Negative (NEG/TRACE) mg/dL Urine Glucose (UA) 250 A (NEGATIVE) mg/dL Urine Ketones Negative (NEGATIVE) mg/dL Urine Occult Blood Small A (NEGATIVE) Urine Nitrite Negative (NEGATIVE) Urine Bilirubin Negative (NEGATIVE) Urine Urobilinogen 0.2 (0.2-1.0) EU/dL Ur Leukocyte Esterase Trace A (NEGATIVE) Urine RBC 0-2 (0-2) #/HPF Urine WBC 10-20 A (NONE SEEN) #/HPF Ur Squamous Epith Cells Rare (NONE/RARE) #/LPF Urine Crystals None seen (None Seen) #/HPF Urine Bacteria Trace A (NONE SEEN) #/HPF Urine Casts None seen (NONE SEEN) #/LPF Urine Mucus None seen (NONE SEEN) Ur Culture Indicated? Yes-[facility] Discharge Plan Discharge Chief Complaint: Fall Clinical Impression: Hypotension, Acute renal failure (ARF), Acute UTI Patient Disposition: Admitted as Observation
[2025-02-08 22:17] LABS: Hematocrit 35.8 % (36.0-48.0); Hemoglobin 11.9 g/dL (12.0-16.0); Immature Granulocytes Abs Auto 0.06 10^3/uL (0.00-0.03); Immature Granulocytes Pct Auto 0.6 % (0.0-0.5); Lymphocytes Absolute Auto 0.8 10^3/uL (1.2-3.8); Mean Corpuscular HGB Conc 33.2 g/dL (29.9-35.2); Mean Corpuscular Hemoglobin 35.2 pg (26.7-34.0); Mean Corpuscular Volume 105.9 fL (81.0-99.0); Platelet Count 169 10^3/uL (150-450); White Blood Count 9.8 10^3/uL (4.0-11.0)
[2025-02-08 22:19] LABS: Red Blood Count 3.38 10^6/uL (4.20-5.40)
[2025-02-08 22:21] LABS: Anion Gap 14.7; Blood Urea Nitrogen 24.0 mg/dL (7.0-18.0); Calcium 9.3 mg/dL (8.5-10.1); Carbon Dioxide 28.1 mmol/L (21.0-32.0); Chloride 100 mmol/L (98-107); Estimated GFR (African America 24 (>=60 mL/min/1.73m^2); Estimated GFR (Non-African Ame 20 (>=60 mL/min/1.73m^2); Glucose 133 mg/dL (74-106); Potassium 3.8 mmol/L (3.5-5.1); Sodium 139 mmol/L (136-145)
[2025-02-08 22:25] LABS: Glucose Urine UA 250 mg/dL (NEGATIVE)
[2025-02-08] MEDS: 0.9 % SODIUM CHLORIDE 1,000 ML 999 ML IV (22:26)
[2025-02-08 22:29] LABS: Lactate/Lactic Acid 1.8 mmol/L (0.4-2.0)
[2025-02-08 22:31] LABS: Cast Seen? NONE SEEN #/LPF (NONE SEEN); Crystals Seen? None Seen #/HPF (None Seen); Urine Culture Indicated YES-FRMC
[2025-02-08] MEDS: CIPROFLOXACIN IN 5 % DEXTROSE 400 MG/200 ML PREMIX 200 MG IV (23:08)
[2025-02-09] VITALS (21 sets, daily range): BP systolic 111–185; BP diastolic 76–95; PULSE 69–121; TEMP 36.5–37.6; O2SAT 90–99; BMI 42.5
--- NOTE | 2025-02-09 00:02 | ECG_ITS ---
[facility] Test Date: 2025-02-09 Pat Name: TIGIST MARCIAL Department: Room: [facility] Gender: Female It Compliance Analyst: : [id number] Requested By: [id number] Order Number: [id number] Reading MD: BALBIR LANG Measurements Intervals [place] Rate: 69 P: [place]: QRS: 72 QRSD: 165 T: -37 QT: 401 QTc: 431 Interpretive Statements ELECTRONIC VENTRICULAR PACEMAKER UNDERLYING ATRIAL FIBRILLATION ABNORMAL RHYTHM ECG WARNING: DATA QUALITY MAY AFFECT INTERPRETATION Compared to ECG 01/06/2025 05:19:59 No significant changes Electronically Signed On 02-12-2025 13:34:28 EDT by BALBIR LANG
--- OUTSIDE RECORDS SUMMARY | 2025-02-09 00:35 | XMS_ITS | CCD ---
Author Organization [facility] Care Team Providers Care Mammography Technologist Name Role Phone ROBERTA VELA Admitting Unavailable [...] JANINE ., DR DORADO Primary Care Unavailable BESSEMER, DR RISHABH Martin Consulting Unavailable LEÓN DIAS [...] Mahajan Attending Unavailable Jarrod Mahajan Admitting Unavailable [place], Marino Consulting Unavailable [place], Marino Consulting Unavailable [place], Marino Consulting Unavailable [place], Marino Consulting Unavailable [place], Marino Consulting Unavailable [place], Marino Consulting Unavailable [place], Marino Consulting Unavailable Marino Roe Consulting Unavailable [place], Marino Consulting Unavailable [facility], XXXX Consulting Unavailable [facility]ound, XXXX Consulting Unavailable Jarrod Mahajan Admitting Unavailable Jarrod Mahajan Attending Unavailable ENOCH FRANKEL Referring Unavailable ENOCH FRANKEL Attending Unavailable ENOCH FRANKEL Referring Unavailable ENOCH FRANKEL Attending Unavailable ENOCH FRANKEL Referring Unavailable ENOCH FRANKEL Referring Unavailable ENOCH FRANKEL Referring Unavailable Ave Mehta MD Primary Care Provider [phone] Kristen White DO Attending Provider Allergies Allergy Classification Reported Allergen(s) Allergy Type Date of Onset Reaction(s) Facility (6 sources) Dust; Translations: [Dust] Propensity to adverse reactions (disorder) [facility] Repository (6 sources) Pollen; Translations: [Pollen] Propensity to adverse reactions (disorder) [facility] Repository (1 source) Cephalexin; Translations: [CEPHALEXIN] Drug Allergy 4 [facility] Repository (1 source) house dust allergenic extract; Translations: [HOUSE DUST] Drug Allergy 4 [facility] Repository (1 source) Pollen; Translations: [POLLEN EXTRACTS] Propensity to adverse reactions to drug (disorder) 4 [facility] Repository Medications Current Medications Medication [...] region] Episodic Other aftercare (1 source) Other halfway (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; Translations: [OTH CUSTOMER TECHNICAL SERVICES MANAGER CURRENT DRUG THERAPY] Onset: 10-18-2022 Episodic Other [...] Resolved: 2 Episodic Other aftercare (1 source) longterm (current) use of antibiotics; Translations: [CUSTOMER TECHNICAL SERVICES MANAGER CURRENT USE ANTIBIOTICS] Onset: 2 Episodic Other aftercare (1 source) longterm (current) use of aspirin; Translations: [CUSTOMER TECHNICAL SERVICES MANAGER CURRENT USE OF ASPIRIN] Onset: 2 Episodic Other aftercare (1 source) product design specialist (current) use of insulin; Translations: [ASSISTED CURRENT USE OF INSULIN] Onset: 2 Episodic [...] Fld Cult Not indicated. Invalid Interpretation Code [facility] Comment on above: Performed By: #### 4 [id number] #### [facility] [address] [place] [address] Note Bact Ag Cult Comment Invalid Interpretation Code [facility] Comment on above: Result Comment: Manjinder ege of [employer] [employer] standards require a culture to be performed on CSF specimens submitted for bacterial antigen testing. (CAP [id number]) Urine specimens will not be cultured. Performed at: [address] [id number] MD Dayron Pepper Performed By: #### 4 [id number] #### [facility] [address] [id number] Org ID S pneumo Not indicated. Invalid Interpretation Code [facility] Comment on above: Performed By: #### 4 [id number] #### [facility] [address] [place] [address] Spec Source S pneumo Urine Invalid Interpretation Code [facility] Comment on above: Performed By: #### 4 [id number] #### [facility] [address] [place] [address] Strep pneumo Ag Negative Invalid Interpretation Code Negative [facility] Comment on above: Performed By: #### 4 [id number] #### [facility] [address] [place] [address] U Legi Agon 01-16-2025 U Legion Ag Negative Invalid Interpretation Code Negative [facility] Comment on above: Result Comment: Pres umptive negative for L. pneumophila serogroup 1 antigen in urine, suggesting no recent or current infection. Legionnaires' disease cannot be ruled out since other serogroups and species may also cause disease. Performed at: [address] [id number] MD Dayron Pepper Performed By: #### 2 [id number] #### [facility] [address] [place] [address] BMPon 01-15-2025 Anion gap [Moles/Vol] 13 mmol/L Normal 6-16 [facility] Comment on above: Performed By: #### 2 [id number] #### [facility] [address] [place] [address] BUN/Creat Ratio 15 No Units Normal 10-20 [facility] Comment on above: Performed By: #### 2 [id number] #### [facility] [address] [place] [address] Calcium [Mass/Vol] 8.9 mg/dL Normal 8.9-11.1 [facility] Comment on above: Performed By: #### 2 [id number] #### [facility] [address] [place] [address] Chloride [Moles/Vol] 102 mmol/L Normal 101-111 [facility] Comment on above: Performed By: #### 2 [id number] #### [facility] [address] [place] [address] CO2 [Moles/Vol] 29 mmol/L Normal 21-31 [facility] Comment on above: Performed By: #### 2 [id number] #### [facility] [address] [place] [address] Creatinine [Mass/Vol] 1.5 mg/dL High 0.5-1.3 [facility] Comment on above: Performed By: #### 2 [id number] #### [facility] [address] [place] [address] Glucose [Mass/Vol] 94 mg/dL Normal 55-199 [facility] Comment on above: Performed By: #### 2 [id number] #### [facility] [address] [place] [address] Potassium [Moles/Vol] 3.7 mmol/L Normal 3.5-5.3 [facility] Comment on above: Performed By: #### 2 [id number] #### [facility] [address] [place] [address] Sodium [Moles/Vol] 140 mmol/L Normal 135-145 [facility] Comment on above: Performed By: #### 2 [id number] #### [facility] [address] [place] [address] Urea nitrogen [Mass/Vol] 23 mg/dL High 5-21 [facility] Comment on above: Performed By: #### 2 [id number] #### [facility] [address] [place] [address] CBC w/ Auto Diffon 5 Basophil Absolute 0.1 E9/L Normal 0.0-0.2 [facility] Comment on above: Performed By: #### 2 [id number] #### [facility] [address] [place] [address] Basophils/100 WBC (Bld) 0.7 % Normal 0.0-2.0 [facility] Comment on above: Performed By: #### 2 772174 #### [facility] [address] [place] [address] Eos Absolute 0.9 E9/L High 0.0-0.5 [facility] Comment on above: Performed By: #### 2 [id number] #### [facility] [address] [place] [address] Eosinophils/100 WBC (Bld) 7.0 % Normal 0.0-8.0 [facility] Comment on above: Performed By: #### 2 [id number] #### [facility] [address] [place] [address] Erythrocyte distribution width (RBC) [Ratio] 14.1 % Normal 10.9-14.2 [facility] Comment on above: Performed By: #### 2 328011 #### [facility] [address] [place] [address] Hematocrit (Bld) [Volume fraction] 34.4 % Normal 34.0-46.0 [facility] Comment on above: Performed By: #### 2 257265 #### [facility] [address] [place] [address] Hemoglobin (Bld) [Mass/Vol] 11.7 g/dL Low 12.0-16.0 [facility] Comment on above: Performed By: #### 2 946349 #### [facility] [address] [place] [address] Lymph Absolute 0.9 E9/L Low 1.0-4.0 [facility] Comment on above: Performed By: #### 2 058219 #### [facility] [address] [place] [address] Lymphocytes/100 WBC (Bld) 7.1 % Low 14.0-50.0 [facility] Comment on above: Performed By: #### 2 [id number] #### [facility] [address] [place] [address] MCH (RBC) [Entitic mass] 34.1 pg High 27.0-34.0 [facility] Comment on above: Performed By: #### 2 107429 #### [facility] [address] [place] [address] MCHC (RBC) [Mass/Vol] 33.8 g/dL Normal 31.4-36.0 [facility] Comment on above: Performed By: #### 2 209149 #### [facility] [address] [place] [address] MCV (RBC) [Entitic vol] 100.7 fL High 80.0-100.0 [facility] Comment on above: Performed By: #### 2 758657 #### [facility] [address] [place] [address] [place] Absolute 1.0 E9/L Normal 0.2-1.0 [facility] Comment on above: Performed By: #### 2 358140 #### [facility] [address] [place] [address] Monocytes/100 WBC (Bld) 8.5 % Normal 4.0-14.0 [facility] Comment on above: Performed By: #### 2 715661 #### [facility] [address] [place] [address] Neutro Absolute 9.4 E9/L High 2.0-7.5 [facility] Comment on above: Performed By: #### 2 458797 #### [facility] [address] [place] [address] Neutro Auto 76.7 % High 36.0-75.0 [facility] Comment on above: Performed By: #### 2 119203 #### [facility] [address] [place] [address] Platelet 195.0 E9/L Normal 150.0-500.0 [facility] Comment on above: Performed By: #### 2 597970 #### [facility] [address] [place] [address] Platelet mean volume (Bld) [Entitic vol] 7.8 fL Normal 6.4-10.8 [facility] Comment on above: Performed By: #### 2 006479 #### [facility] [address] [place] [address] RBC 3.4 E12/L Low 4.3-5.9 [facility] Comment on above: Performed By: #### 2 669817 #### [facility] [address] [place] [address] WBC 12.2 E9/L High 4.0-11.0 [facility] Comment on above: Performed By: #### 2 545922 #### [facility] [address] [place] [address] Inpatient Clinical Summaryon 01-15-2025 Inpatient Clinical Summary Inpatient Clinical Summary [address] [address] Clinical Summary Person Information: Name: LINDA NASCIMENTO Age: 74 Years : 1950 Sex: Female PCP: Ave Mehta MD Marital Status: Race: White Ethnicity: Non- or Language: Ecuadorean Visit Id: Visit Reason: Potential stroke; Syncope/Near syncope; Weakness or fatigue; POSS STROKE Speciality: Acuity: Enc Type: Inpatient Med Service: Medical Arrival: 01/13/2025 13:01:29 Discharge: Dispo Type: Admitted as IP to this Hosp Address: [address] [place] [id number] Provider Notes: Diagnosis: 1:Sepsis; 2:Pneumonia; 3:Acute hypoxic [...] Physician: Jarrod Mahajan III, DO Consulting Physician: [facility], XXXX; Marino Roe MD Referring Physician: Follow up: With: Address: When: neurology Within 2 to 4 weeks Comments: call [phone] to scheduled an appt Patient Education Information: Diandra [facility] Inpatient Patient Summaryon 01-15-2025 Inpatient Patient Summary Inpatient Patient Summary LINDA NASCIMENTO :1950 Visit Date:01/13/2025 Inpatient Discharge Instructions Your Care Team Admitting Physician - Jarrod Mahajan III, DO Consulting Physician - Bhupinder OLIVER Marino [facility] Wound, XXXX Reason for Your Visit pna [...] Within 2 to 4 weeks Comments: call [phone] to scheduled an appt Where: The Following [...] oral tablet) (more content not included)... Normal [facility] Inpatient Patient Summary Inpatient Patient Summary [place] [address] Patient Discharge Instructions PERSON INFORMATION Name: LINDA [...] Within 2 to 4 weeks Comments: call [phone] to scheduled an appt In the event [...] day. Last (more content not included)... Normal [facility] Interdisciplinary Note - Antony e Manageron 01-15-2025 Interdisciplinary Note - Packaging Supervisor Interdisciplinary Note - Packaging Supervisor Plan remains for patient to return to her LTC facility at [facility] when medically stable. Updates provided to facility. Copy of IMM at bedside. CM to follow. [facility] Comment on above: Result Comment: Elec [...] Locations R1: This test was performed at: [facility], [address] [place] [address], [id number] , [place], [facility] Comment on above: Performed By: #### 1 [id number] #### [facility] [address] [place] [address] eGFRon 01-15-2025 eGFR 36 mL/min/1.73 m2 Low >=59 [facility] Comment on above: Performed By: #### 1 [id number] #### [facility] [address] [place] [address] CBC w/ Auto Diffon 5 Basophil Absolute 0.1 E9/L Normal 0.0-0.2 [facility] Comment on above: Performed By: #### 2 [id number] #### [facility] [address] [place] [address] Basophils/100 WBC (Bld) 0.5 % Normal 0.0-2.0 [facility] Comment on above: Performed By: #### 2 102659 #### [facility] [address] [place] [address] Eos Absolute 0.5 E9/L Normal 0.0-0.5 [facility] Comment on above: Performed By: #### 2 [id number] #### [facility] [address] [place] [address] Eosinophils/100 WBC (Bld) 3.9 % Normal 0.0-8.0 [facility] Comment on above: Performed By: #### 2 033824 #### [facility] [address] [place] [address] Erythrocyte distribution width (RBC) [Ratio] 14.2 % Normal 10.9-14.2 [facility] Comment on above: Performed By: #### 2 709565 #### [facility] [address] [place] [address] Hematocrit (Bld) [Volume fraction] 32.5 % Low 34.0-46.0 [facility] Comment on above: Performed By: #### 2 [id number] #### [facility] [address] [place] [address] Hemoglobin (Bld) [Mass/Vol] 11.1 g/dL Low 12.0-16.0 [facility] Comment on above: Performed By: #### 2 668019 #### [facility] [address] [place] [address] Lymph Absolute 1.3 E9/L Normal 1.0-4.0 [facility] Comment on above: Performed By: #### 2 392246 #### [facility] [address] [place] [address] Lymphocytes/100 WBC (Bld) 10.4 % Low 14.0-50.0 [facility] Comment on above: Performed By: #### 2 [id number] #### [facility] [address] [place] [address] MCH (RBC) [Entitic mass] 34.7 pg High 27.0-34.0 [facility] Comment on above: Performed By: #### 2 472747 #### [facility] [address] [place] [address] MCHC (RBC) [Mass/Vol] 34.2 g/dL Normal 31.4-36.0 [facility] Comment on above: Performed By: #### 2 922982 #### [facility] [address] [place] [address] MCV (RBC) [Entitic vol] 101.5 fL High 80.0-100.0 [facility] Comment on above: Performed By: #### 2 416584 #### [facility] [address] [place] [address] [place] Absolute 1.1 E9/L High 0.2-1.0 [facility] Comment on above: Performed By: #### 2 828206 #### [facility] [address] [place] [address] Monocytes/100 WBC (Bld) 9.0 % Normal 4.0-14.0 [facility] Comment on above: Performed By: #### 2 348125 #### [facility] [address] [place] [address] Neutro Absolute 9.2 E9/L High 2.0-7.5 [facility] Comment on above: Performed By: #### 2 088945 #### [facility] [address] [place] [address] Neutro Auto 76.2 % High 36.0-75.0 [facility] Comment on above: Performed By: #### 2 137136 #### [facility] [address] [place] [address] Platelet 189.0 E9/L Normal 150.0-500.0 [facility] Comment on above: Performed By: #### 2 681681 #### [facility] [address] [place] [address] Platelet mean volume (Bld) [Entitic vol] 7.4 fL Normal 6.4-10.8 [facility] Comment on above: Performed By: #### 2 235294 #### [facility] [address] [place] [address] RBC 3.2 E12/L Low 4.3-5.9 [facility] Comment on above: Performed By: #### 2 412625 #### [facility] [address] [place] [address] WBC 12.1 E9/L High 4.0-11.0 [facility] Comment on above: Performed By: #### 2 539551 #### [facility] [address] [place] [address] CMPon 01-14-2025 Albumin [Mass/Vol] 3.5 g/dL Normal 3.3-5.0 [facility] Comment on above: Performed By: #### 2 503982 #### [facility] [address] [place] [address] Albumin/Globulin [Mass ratio] 1.3 {ratio} Normal 1.1-2.2 [facility] Comment on above: Performed By: #### 2 100064 #### [facility] [address] [place] [address] Alk Phos 66 Int._Unit/L Normal 21-98 [facility] Comment on above: Performed By: #### 2 280569 #### [facility] [address] [place] [address] ALT 7 Int._Unit/L Normal 6-46 [facility] Comment on above: Performed By: #### 2 002788 #### [facility] [address] [place] [address] Anion gap [Moles/Vol] 10 mmol/L Normal 6-16 [facility] Comment on above: Performed By: #### 2 873472 #### [facility] [address] [place] [address] AST 13 Int._Unit/L Normal 5-43 [facility] Comment on above: Performed By: #### 2 025023 #### [facility] [address] [place] [address] Bili Total 0.6 mg/dL Normal 0.0-1.1 [facility] Comment on above: Performed By: #### 2 969896 #### [facility] [address] [place] [address] BUN/Creat Ratio 17 No Units Normal 10-20 [facility] Comment on above: Performed By: #### 2 028324 #### [facility] [address] [place] [address] Calcium [Mass/Vol] 8.6 mg/dL Low 8.9-11.1 [facility] Comment on above: Performed By: #### 2 487021 #### [facility] [address] [place] [address] Chloride [Moles/Vol] 103 mmol/L Normal 101-111 [facility] Comment on above: Performed By: #### 2 324377 #### [facility] [address] [place] [address] CO2 [Moles/Vol] 33 mmol/L High 21-31 [facility] Comment on above: Performed By: #### 2 943941 #### [facility] [address] [place] [address] Creatinine [Mass/Vol] 1.5 mg/dL High 0.5-1.3 [facility] Comment on above: Performed By: #### 2 759816 #### [facility] [address] [place] [address] Globulin (S) [Mass/Vol] 2.6 g/dL Normal 1.4-4.0 [facility] Comment on above: Performed By: #### 2 202957 #### [facility] [address] [place] [address] Glucose [Mass/Vol] 90 mg/dL Normal 55-199 [facility] Comment on above: Performed By: #### 2 382595 #### [facility] [address] [place] [address] Potassium [Moles/Vol] 3.7 mmol/L Normal 3.5-5.3 [facility] Comment on above: Performed By: #### 2 966752 #### [facility] [address] [place] [address] Protein [Mass/Vol] 6.1 g/dL Normal 6.0-7.8 [facility] Comment on above: Performed By: #### 2 714200 #### [facility] [address] [place] [address] Sodium [Moles/Vol] 142 mmol/L Normal 135-145 [facility] Comment on above: Performed By: #### 2 186572 #### [facility] [address] [place] [address] Urea nitrogen [Mass/Vol] 25 mg/dL High 5-21 [facility] Comment on above: Performed By: #### 2 615641 #### [facility] [address] [place] [address] [id number] 01-14-2025 HbA1c (Bld) [Mass fraction] 5.6 % Normal <=5.9 [facility] Comment on above: Performed By: #### 7 [id number] #### [facility] [address] [place] [address] MRA Head w/o Contraston 08-0 MRA Head w/o Contrast Exam Date/Time: 01/14/2025 16:51 EDT Reason for Exam: TIA Report Please see MRI brain report. Ordering Provider: Jarrod Mahajan FINAL REPORT Dictated: 01/14/2025 5:19 pm Dwight Coffey DO Signed (Electronic Signature): 01/14/2025 5:19 pm Signed by: Dwight Coffey DO Transcribed by: BEATRIZ Technologist: LULY Jim [facility] MRA Neck w/o Contraston 08-0 MRA Neck w/o Contrast Exam Date/Time: 01/14/2025 16:51 EDT Reason for Exam: TIA Report IMPRESSION: NO DISSECTION, HIGH GRADE STENOSIS OR ANEURYSM. EXAM: MR angiogram of the neck without contrast HISTORY: TIA TECHNIQUE: Axial 2-D and 3-D [id number] images of the vasculature of the neck [...] DO Transcribed by: BEATRIZ Technologist: LULY Jim [facility] MRI Brain w/o Contraston MRI Brain [...] brain was performed without contrast. Axial 3-D [id number] images of the brain were obtained without [...] DO Transcribed by: BEATRIZ Technologist: LULY Normal [facility] eGFRon 01-14-2025 eGFR 36 mL/min/1.73 m2 Low >=59 [facility] Comment on above: Performed By: #### 1 [id number] #### [facility] [address] [place] [address] BB Draw & Holdon 01-13-2025 BB D&H Sample drawn for Blood Ba Normal [facility] Comment on above: Performed By: #### 1 [id number] #### [facility] [address] [place] [address] BMPon 01-13-2025 Anion gap [Moles/Vol] 15 mmol/L Normal 6-16 [facility] Comment on above: Performed By: #### 2 301349 #### [facility] [address] [place] [address] BUN/Creat Ratio 16 No Units Normal 10-20 [facility] Comment on above: Performed By: #### 2 [id number] #### [facility] [address] [place] [address] Calcium [Mass/Vol] 9.9 mg/dL Normal 8.9-11.1 [facility] Comment on above: Performed By: #### 2 090247 #### [facility] [address] [place] [address] Chloride [Moles/Vol] 99 mmol/L Low 101-111 [facility] Comment on above: Performed By: #### 2 377456 #### [facility] [address] [place] [address] CO2 [Moles/Vol] 29 mmol/L Normal 21-31 [facility] Comment on above: Performed By: #### 2 932177 #### [facility] [address] [place] [address] Creatinine [Mass/Vol] 1.6 mg/dL High 0.5-1.3 [facility] Comment on above: Performed By: #### 2 044012 #### [facility] [address] [place] [address] Glucose [Mass/Vol] 172 mg/dL Normal 55-199 [facility] Comment on above: Performed By: #### 2 859623 #### [facility] [facility] [address] [place] [address] Potassium [Moles/Vol] 3.8 mmol/L Normal 3.5-5.3 [facility] Comment on above: Performed By: #### 2 [id number] #### [facility] [address] [place] [address] Sodium [Moles/Vol] 139 mmol/L Normal 135-145 [facility] Comment on above: Performed By: #### 2 [id number] #### [facility] [address] [place] [address] Urea nitrogen [Mass/Vol] 26 mg/dL High 5-21 [facility] Comment on above: Performed By: #### 2 [id number] #### [facility] [address] [place] [address] BNPon 01-13-2025 Int Ctr BNP Pass Normal [facility] Comment on above: Performed By: #### 1 [id number] #### [facility] [address] [place] [address] Natriuretic peptide B (Bld) [Mass/Vol] 370 pg/mL High 5-80 [facility] Comment on above: Performed By: #### 1 [id number] #### [facility] [address] [place] [address] CBC w/ Auto Diffon 5 Basophil Absolute 0.1 E9/L Normal 0.0-0.2 [facility] Comment on above: Performed By: #### 2 [id number] #### [facility] [address] [place] [address] Basophils/100 WBC (Bld) 0.5 % Normal 0.0-2.0 [facility] Comment on above: Performed By: #### 2 [id number] #### [facility] [address] [place] [address] Eos Absolute 0.1 E9/L Normal 0.0-0.5 [facility] Comment on above: Performed By: #### 2 [id number] #### [facility] [address] [place] [address] Eosinophils/100 WBC (Bld) 0.4 % Normal 0.0-8.0 [facility] Comment on above: Performed By: #### 2 [id number] #### [facility] [address] [place] [address] Erythrocyte distribution width (RBC) [Ratio] 14.3 % High 10.9-14.2 [facility] Comment on above: Performed By: #### 2 [id number] #### [facility] [address] [place] [address] Hematocrit (Bld) [Volume fraction] 38.6 % Normal 34.0-46.0 [facility] Comment on above: Performed By: #### 2 [id number] #### [facility] [address] [place] [address] Hemoglobin (Bld) [Mass/Vol] 13.4 g/dL Normal 12.0-16.0 [facility] Comment on above: Performed By: #### 2 [id number] #### [facility] [address] [place] [address] Lymph Absolute 0.7 E9/L Low 1.0-4.0 [facility] Comment on above: Performed By: #### 2 [id number] #### [facility] [address] [place] [address] Lymphocytes/100 WBC (Bld) 5.2 % Low 14.0-50.0 [facility] Comment on above: Performed By: #### 2 [id number] #### [facility] [address] [place] [address] MCH (RBC) [Entitic mass] 34.9 pg High 27.0-34.0 [facility] Comment on above: Performed By: #### 2 [id number] #### [facility] [address] [place] [address] MCHC (RBC) [Mass/Vol] 34.6 g/dL Normal 31.4-36.0 [facility] Comment on above: Performed By: #### 2 [id number] #### [facility] [address] [place] [address] MCV (RBC) [Entitic vol] 100.7 fL High 80.0-100.0 [facility] Comment on above: Performed By: #### 2 [id number] #### [facility] [address] [place] [address] [place] Absolute 0.3 E9/L Normal 0.2-1.0 [facility] Comment on above: Performed By: #### 2 [id number] #### [facility] [address] [place] [address] Monocytes/100 WBC (Bld) 2.2 % Low 4.0-14.0 [facility] Comment on above: Performed By: #### 2 [id number] #### [facility] [address] [place] [address] Neutro Absolute 12.6 E9/L High 2.0-7.5 [facility] Comment on above: Performed By: #### 2 [id number] #### [facility] [address] [place] [address] Neutro Auto 91.7 % High 36.0-75.0 [facility] Comment on above: Performed By: #### 2 [id number] #### [facility] [address] [place] [address] Platelet 233.0 E9/L Normal 150.0-500.0 [facility] Comment on above: Performed By: #### 2 [id number] #### [facility] [address] [place] [address] Platelet mean volume (Bld) [Entitic vol] 7.2 fL Normal 6.4-10.8 [facility] Comment on above: Performed By: #### 2 [id number] #### [facility] [address] [place] [address] RBC 3.8 E12/L Low 4.3-5.9 [facility] Comment on above: Performed By: #### 2 [id number] #### [facility] [address] [place] [address] WBC 13.7 E9/L High 4.0-11.0 [facility] Comment on above: Performed By: #### 2 [id number] #### [facility] [address] [place] [address] COVID-19 ([facility]on 01-13-2025 SARS-CoV-2 (COVID-19) RNA DONNIE+probe Ql (Unsp spec) Not detected Normal Not Detected [facility] Comment on above: Result Comment: This [...] Emergency Use Authorization. Performed By: #### 2 [id number] #### [facility] [address] [place] [address] SARS-CoV-2 (COVID-19) RNA DONNIE+probe Ql (Unsp spec) Pass Normal Pass [facility] Comment on above: Performed By: #### 2 [id number] #### [facility] [address] [place] [address] Specimen source Nom (Unsp spec) Nasal Normal [facility] Comment on above: Performed By: #### 2 [id number] #### [facility] [address] [place] [address] CT Head or Brain w/o Contras ton [...] MD Transcribed by: BEATRIZ Technologist: JULIA Jim [facility] ED Clinical Summaryon 2024 ED Clinical Summary ED Clinical Summary [address] [address] ED Clinical Summary Person Information Name: LINDA ANSCIMENTO [facility] Age: 74 Years : 1950 Sex: Female Language: Ecuadorean PCP: Ave Mehta MD Marital Status: Visit Id: Visit Reason: Potential stroke; Syncope/Near syncope; Weakness or fatigue; POSS STROKE Speciality: Acuity: 2 Enc Type: Inpatient Med Service: Medical Arrival: 01/13/2025 13:01:29 Discharge: LOS: 000 02:54 Checkin: 01/13/2025 13:01:29 Checkout: 01/13/2025 15:55:23 Dispo Type: Admitted as IP to this [facility] EVENTS: Event Name Event Status Request Date/Time [...] 01/13/2025 15:55:23 01/13/2025 15:55:23 01/13/2025 15:55:23 ADDRESS: [address] [place] [id number] PHYS DOC NOTES: MEDICAL INFORMATION: Prescriptions Given: [...] hypoxic respiratory failure; 6:Acute kidney injury Normal [facility] ED Note-Physicianon 01-14-20 ED Note-Physician ED Note-Physician Basic Information Time Seen: Brittny Broussard M.D. 01/13/2025 13:11 Chief Complaint patient last well known time is 1130. patient at lunch, per NH pt went unresponsive, EMS called and were informed that patient possible stroke, Patient initiated IV, patient transported to [facility] ED, History of Present Illness The patient is a 74-year-old female past medical history of atrial fibrillation on Eliquis, status post pacemaker placement who presented to the emergency room from [facility] for possible stroke. The patient presented for [...] age Procedure Sepsis Data [ ] Patient's [place] body weight was considered in sepsis fluid [...] and Complexity of Problems Differential Diagnosis: [] [facility] Data External documents reviewed: [] My EKG [...] vital sig (more content not included)... Normal [facility] Comment on above: Result Comment: Elec tronically Signed By: Brittny Broussard M.D.\.sharan\Date and Time Signed: 01/13/25 16:21 EDT ED Patient Education Noteon 01-13-2025 ED Patient Education Note ED Patient Education Note Normal [facility] ED Patient Summaryon 025 ED Patient Summary ED Patient Summary [place] [id number] Patient Discharge Instructions Person Information Name: LINDA NASCIMENTO Age: 74 Years Arrival Date: 01/13/2025 13:01:29 Discharge Diagnosis: 1:Sepsis; 2:Pneumonia; 3:Stroke-like symptoms; 4:Aphasia; 5:Acute hypoxic respiratory failure; 6:Acute kidney injury Primary Care Physician: Ave Mehta MD Provider Information Primary Provider: Brittny Broussard M.D. Advanced Sampler Radioactive Waste:None The exam and treatment you received in the Emergency Department were for an urgent problem and are not intended as complete care. It is important that you follow up with a doctor, nurse practitioner, or physician???s freezer assistant for ongoing care. If your symptoms [...] opioids can be used to help relieve tbnclape-bl-zydmuu pain and are often prescribed following a [...] be struggling with addiction, tell your health senior care provider and ask for guidance or call [facility]???S National Helpline at 6-402-441-VDZR. (more content not included)... [facility] Hep Func Panelon 01-13-2025 Albumin [Mass/Vol] 4.5 g/dL Normal 3.3-5.0 [facility] Comment on above: Performed By: #### 2 [id number] #### [facility] [address] [place] [address] Albumin/Globulin [Mass ratio] 1.3 {ratio} Normal 1.1-2.2 [facility] Comment on above: Performed By: #### 2 [id number] #### [facility] [address] [place] [address] Alk Phos 86 Int._Unit/L Normal 21-98 [facility] Comment on above: Performed By: #### 2 [id number] #### [facility] [address] [place] [address] ALT 10 Int._Unit/L Normal 6-46 [facility] Comment on above: Performed By: #### 2 [id number] #### [facility] [address] [place] [address] AST 22 Int._Unit/L Normal 5-43 [facility] Comment on above: Performed By: #### 2 [id number] #### [facility] [address] [place] [address] Bili Direct 0.1 mg/dL Normal 0.0-0.4 [facility] Comment on above: Performed By: #### 2 [id number] #### [facility] [address] [place] [address] Bili Indirect 0.6 mg/dL Normal 0.1-0.9 [facility] Comment on above: Performed By: #### 2 [id number] #### [facility] [address] [place] [address] Bili Total 0.7 mg/dL Normal 0.0-1.1 [facility] Comment on above: Performed By: #### 2 [id number] #### [facility] [address] [place] [address] Globulin (S) [Mass/Vol] 3.5 g/dL Normal 1.4-4.0 [facility] Comment on above: Performed By: #### 2 [id number] #### [facility] [address] [place] [address] Protein [Mass/Vol] 8.0 g/dL High 6.0-7.8 [facility] Comment on above: Performed By: #### 2 [id number] #### [facility] [address] [place] [address] Lactic Acidon 01-13-2025 Lactic Acid Lvl 1.2 mmol/L Normal 0.5-2.2 [facility] Comment on above: Order Comment: Order added by EKS Rule. (FT_LACTIC_ACID_REFLEX) Adds reflex Lactic Acid 4 hours after initial if result is greater than or equal to 2.0. Performed By: #### 2 [id number] #### [facility] [address] [place] [address] Lactic Acid Lvl 2.1 mmol/L Normal 0.5-2.2 [facility] Comment on above: Performed By: #### 2 [id number] #### [facility] [address] [place] [address] Magnesiumon 01-13-2025 Magnesium [Mass/Vol] 1.9 mg/dL Normal 1.3-2.4 [facility] Comment on above: Performed By: #### 2 [id number] #### [facility] [address] [place] [address] PT & PTTon 01-13-2025 INR Coag (PPP) [Relative time] 2.02 {INR} Invalid Interpretation Code [facility] Comment on above: Result Comment: INR results are specifically intended to assess patients stabilized on long-term Anticoagulation therapy suggested INR???s ???Less Intensive Anticoagulation??? 2.0 ??? 3.0 Conventional Range 3.0 ??? 4.5 Performed By: #### 1 [id number] #### [facility] [address] [place] [address] PT 22.8 second(s) High 9.4-12.5 [facility] Comment on above: Result Comment: 15 d [...] the same coagulation reagent and instrumentation as [facility]. Currently there are no coagulation studies available worldwide for children to 14 days, and no normal ranges. Performed By: #### 1 [id number] #### [facility] [address] [place] [address] PTT 39.6 second(s) High 25.1-36.5 [facility] Comment on above: Result Comment: Para meter [...] the same coagulation reagent and instrumentation as [facility]. Currently there are no coagulation studies available worldwide for children to 14 days, and no normal ranges. Heparin therapeutic range (represented by Anti-Factor Xa activity of 0.2 - 0.4 U/mL) corresponds to PTT of 56.6 - 109.0 sec. Performed By: #### 1 [id number] #### [facility] [address] [place] [address] Pre-Arrival Noteon Pre-Arrival Note Pre-Arrival Note Pre-Arrival Summary Name: [facility] Current Date: 01/13/2025 13:01:54 EDT Gender: Female Date of : Age: 74 Pre-Arrival Type: EMS ETA: 01/13/2025 13:25:00 EDT Primary Care Physician: Presenting Problem: stroke Pre-Arrival User: Cassia Alcaraz RN Referring Source: Location: [place] Completion Date/Time: 01/13/2025 12:55:00 [facility] Emergency Department Pre-Hospital Report Form Vital Signs: Pre-Hospital Report: Treatment in Route: Response to Treatment: Misc. Issues: Normal [facility] Procalcitoninon 01-13-2025 Procalcitonin <.05 Normal .00-.50 [facility] Comment on above: Result Comment: <0.5 ng/mL [...] to 24 hours. Performed By: #### 2 [id number] #### [facility] [address] [place] [address] Respiratory Panel by PCRon 0 01-13-2025 Adenovirus Not detected Normal [facility] Comment on above: Result Comment: Test ing was performed using nucleic acid amplification including Influenza A, Influenza A H1, Influenza A H3, Influenza B, RSV A, RSV B, Adenovirus, Human Metapneumovirus, Parainfluenza 1,2,3, and 4, Rhinovirus, Bordetella parapertussis/bronchiseptica, Bordetella holmesii, and Bordetella pertussis. Performed By: #### 1 [id number] #### [facility] [address] [place] [address] B. holmesii Not detected Normal [facility] Comment on above: Performed By: #### 1 [id number] #### [facility] [address] [place] [address] B. parapertussis/bronchise ptica Not detected Normal Not Detected [facility] Comment on above: Performed By: #### 1 [id number] #### [facility] [address] [place] [address] B. pertussis Not detected Normal Not Detected [facility] Comment on above: Performed By: #### 1 [id number] #### [facility] [address] [place] [address] Human Metapneumovirus Not detected Normal [facility] Comment on above: Result Comment: This test result should be correlated with clinical presentations and medical history by a healthcare provider to determine its clinical significance. Performed By: #### 1 [id number] #### [facility] [address] [place] [address] Influenza A Not detected Normal [facility] Comment on above: Performed By: #### 1 [id number] #### [facility] [address] [place] [address] Influenza A (subtype H1) Not detected Normal [facility] Comment on above: Performed By: #### 1 [id number] #### [facility] [address] [place] [address] Influenza A (subtype H3) Not detected Normal [facility] Comment on above: Performed By: #### 1 [id number] #### [facility] [address] [place] [address] Influenza B Not detected Normal [facility] Comment on above: Performed By: #### 1 [id number] #### [facility] [address] [place] [address] Parainfluenza 1 Not detected Normal [facility] Comment on above: Performed By: #### 1 [id number] #### [facility] [address] [place] [address] Parainfluenza 2 Not detected Normal [facility] Comment on above: Performed By: #### 1 [id number] #### [facility] [address] [place] [address] Parainfluenza 3 Not detected Normal [facility] Comment on above: Performed By: #### 1 [id number] #### [facility] [address] [place] [address] Parainfluenza 4 Not detected Normal [facility] Comment on above: Performed By: #### 1 [id number] #### [facility] [address] [place] [address] Resp Panel Intrl QC Pass Normal [facility] Comment on above: Performed By: #### 1 [id number] #### [facility] [address] [place] [address] Rhinovirus Not detected Normal [facility] Comment on above: Performed By: #### 1 [id number] #### [facility] [address] [place] [address] RSV A Not detected Normal [facility] Comment on above: Performed By: #### 1 [id number] #### [facility] [address] [place] [address] RSV B Not detected Normal [facility] Comment on above: Performed By: #### 1 [id number] #### [facility] [address] [place] [address] Troponin 0 Hr.on 01-13-2025 Troponin HS 10.60 pg/mL Normal 10.10-27.10 [facility] Comment on above: Result Comment: The 95% CI (Confidence Interval) PPV (Positive Predictive Value) for myocardial infarction in females is 38 pg/mL, in males 51 pg/mL. The results should be used in conjunction with clinical conditions of myocardial infarction. (Access High Sensitivity Troponin I Instructions For Use, [employer], January 2018) Performed By: #### 1 [id number] #### [facility] [address] [place] [address] Troponin 1 Hr.on 01-13-2025 Troponin HS 17.50 pg/mL Normal 10.10-27.10 [facility] Comment on above: Result Comment: The 95% CI (Confidence Interval) PPV (Positive Predictive Value) for myocardial infarction in females is 38 pg/mL, in males 51 pg/mL. The results should be used in conjunction with clinical conditions of myocardial infarction. (Access High Sensitivity Troponin I Instructions For Use, [employer], January 2018) Performed By: #### 1 [id number] #### [facility] [address] [place] [address] UA with Cult Rflxon 01-14-20 25 Color (U) Colorless Abnormal Yellow [facility] Comment on above: Result Comment: Micr oscopic readings are only performed on those samples that meet specific criteria set forth by [facility]. Performed By: #### 4 [id number] #### [facility] [address] [place] [address] Ketones Ql (U) Negative Normal Negative [facility] Comment on above: Performed By: #### 4 [id number] #### [facility] [address] [place] [address] UA Blood Negative Normal Negative [facility] Comment on above: Performed By: #### 4 [id number] #### [facility] [address] [place] [address] UA Clarity Clear Normal Clear [facility] Comment on above: Performed By: #### 4 [id number] #### [facility] [address] [place] [address] UA Glucose 3+ mg/dL Abnormal Negative [facility] Comment on above: Performed By: #### 4 [id number] #### [facility] [address] [place] [address] UA Leuk Est Negative Normal Negative [facility] Comment on above: Performed By: #### 4 [id number] #### [facility] [address] [place] [address] UA Nitrite Negative Normal Negative [facility] Comment on above: Performed By: #### 4 [id number] #### [facility] [address] [place] [address] UA pH 6.5 Invalid Interpretation Code 5.0-9.0 [facility] Comment on above: Performed By: #### 4 [id number] #### [facility] [address] [place] [address] UA Protein Negative Normal Negative [facility] Comment on above: Performed By: #### 4 [id number] #### [facility] [address] [place] [address] UA Spec Grav 1.006 Invalid Interpretation Code 1.005-1.030 [facility] Comment on above: Performed By: #### 4 [id number] #### [facility] [address] [place] [address] UA Urobilinogen Negative Normal Negative [facility] Comment on above: Performed By: #### 4 [id number] #### [facility] [address] [place] [address] Urobilinogen (U) [Mass/Vol] Negative Normal Negative [facility] Comment on above: Performed By: #### 4 [id number] #### [facility] [address] [place] [address] UA Spec Desc Clean Catch Normal [facility] Comment on above: Performed By: #### 4 [id number] #### [facility] [address] [place] [address] XR Chest Single Viewon 01-13 XR Chest [...] MD Transcribed by: BEATRIZ Technologist: CHASITY Jim [facility] eGFRon 01-13-2025 eGFR 33 mL/min/1.73 m2 Low >=59 [facility] Comment on above: Performed By: #### 1 [id number] #### [facility] [address] [place] [address] Office Visiton 12-31-2024 Follow-up visit [id number] Linda Nascimento 1950 F Date Provider Department Center 12/31/2024 Rajeev-ENOCH FRANKEL JUAN Lopez Family History Problem Relation Age of Onset Lung cancer Mother Stroke Father Family Status - Relation Status Age at Mother Father Level of Service:08480 CO OFFICE/OUTPATIENT ESTABLISHED HIGH MDM 40 MIN Normal [facility] Orders Onlyon 12-31-2024 Orders Only [id number] Linda Nascimento 1950 F Date Provider Department Center 12/31/2024 ROXY MARTIN Family History Problem Relation Age of Onset Lung cancer Mother Stroke Father Family Status - Relation Status Age at Mother Father Normal [facility] KERRI Antinuclear Antibodieson 07-31-2024 Antinuclear Abs, IFA Positive Critically abnormal . [facility] Comment on above: Result Comment: Nega tive <1:80 Borderline 1:80 Positive >1:80 Speckled cytoplasmic fluorescence is present. The antibodies noted in this pattern may be associated with, but not restricted to, primary biliary cirrhosis (PBC), polymyositis and dermatomyositis (PM/DM), and/or systemic lupus erythematosus (SLE). Performed By: #### T 4F, CK, CRP, TSH3, ESR, CBC, CMP #### [facility] [facility] [address] #### HBCAB, JUSTINA, HBSAG, ALDOLASE, HCV RX PCR, HBSAB, THYGLOB AB, CHROMATIN, C4, C3, CH50, RPR W RFX, TPO, KERRI #### [facility] , Homogeneous Pattern 1:160 High . [facility] Comment on above: Result Comment: ICAP nomenclature: [id number] Performed By: #### T 4F, CK, CRP, TSH3, ESR, CBC, CMP #### [facility] [address] #### HBCAB, JUSTINA, HBSAG, ALDOLASE, HCV RX PCR, HBSAB, THYGLOB AB, CHROMATIN, C4, C3, CH50, RPR W RFX, TPO, KERRI #### [facility] , Note 1 Comment Normal . [facility] Comment on above: Result Comment: Brigid ignacio Potential Disease Association Homogeneous Systemic Lupus Erythematosus, Drug Induced Systemic Lupus Erythematosus, Chronic Autoimmune hepatitis, Juvenile Idiopathic Arthritis Speckled Sjogren Syndrome, Systemic Lupus Erythematosus, Subacute Cutaneous Lupus, Lupus, Congenital Heart Block, Mixed Connective Tissue Disease, Scleroderma-diffuse, Scleroderma-Autoimmune Myositis Overlap Syndrome, Systemic Lupus Tnlaqlxpeurkg-Kezlmkabtto-Kjwxrdorpy Myositis Overlap Syndrome, Systemic Autoimmune Rheumatic Disease, [...] Linear Scleroderma, Antiphospholipid Syndrome Performed at: - [facility] [id number] [employer] Dba: Iain Siegel PhD, Phone: [phone] Performed By: #### T 4F, CK, CRP, TSH3, ESR, CBC, CMP #### [address] #### HBCAB, JUSTINA, HBSAG, ALDOLASE, HCV RX PCR, HBSAB, THYGLOB AB, CHROMATIN, C4, C3, CH50, RPR W RFX, TPO, KERRI #### [facility] , Alanine aminotransferase [En zymatic activity/volume] in Serum or PlasmaOrdered By: Beti Ham on 07-31-2024 ALT [Catalytic activity/Vol] Alanine aminotransferase [Enzymatic activity/volume] in Serum or Plasma 7-52 [facility] Albumin [Mass/volume] in Ser um or Plasma by Bromocresol green (BCG) dye binding methoOrdered By: Beti Ham on 07-31-2024 Albumin BCG dye [Mass/Vol] Albumin [Mass/volume] in Serum or Plasma by Bromocresol green (BCG) dye binding metho 3.5-5.7 [facility] Aldolaseon 07-31-2024 Aldolase 3.3 U/L Normal 3.3-10.3 [facility] Comment on above: Result Comment: Perf ormed at: [facility] [employer] [id number] [employer] Dba: Iain Siegel PhD, Phone: [phone] PERFORMED BY: [place] [address] PATHOLOGIST [employer] SARAHI JUAREZ M.D. Performed By: #### T 4F, CK, CRP, TSH3, ESR, CBC, CMP #### [address] #### HBCAB, JUSTINA, HBSAG, ALDOLASE, HCV RX PCR, HBSAB, THYGLOB AB, CHROMATIN, C4, C3, CH50, RPR W RFX, TPO, KERRI #### [facility] , Alkaline phosphatase [Enzyma tic activity/volume] in Serum or PlasmaOrdered By: Beti Ham on 07-31-2024 ALP [Catalytic activity/Vol] Alkaline phosphatase [Enzymatic activity/volume] in Serum or Plasma 34-104 [facility] Angiotensin Converting Enzym libby 07-31-2024 Angiotensin converting enzyme [Catalytic activity/Vol] 53 U/L Normal 14-82 [facility] Comment on above: Result Comment: Perf ormed at: [facility] [employer] [id number] [employer] Dba: Iain Siegel PhD, Phone: [phone] Performed By: #### T 4F, CK, CRP, TSH3, ESR, CBC, CMP #### [address] #### HBCAB, JUSTINA, HBSAG, ALDOLASE, HCV RX PCR, HBSAB, THYGLOB AB, CHROMATIN, C4, C3, CH50, RPR W RFX, TPO, KERRI #### [facility] , Antithyroglobulin Abon 07-31 Antithyroglobulin Ab <1.0 Normal 0.0-0.9 [facility] Comment on above: Result Comment: Thyr oglobulin Antibody measured by [employer] It should be noted that the presence of thyroglobulin antibodies may not be pathogenic nor diagnostic, especially at very low levels. The assay poll watcher has found that four percent of individuals without evidence of thyroid disease or autoimmunity will have positive TgAb levels up to 4 IU/mL. Performed at: [facility] [id number] [employer] Dba: Iain Siegel PhD, Phone: [phone] Performed By: #### T 4F, CK, CRP, TSH3, ESR, CBC, CMP #### [place] [address] [place] #### HBCAB, JUSTINA, HBSAG, ALDOLASE, HCV RX PCR, HBSAB, THYGLOB AB, CHROMATIN, C4, C3, CH50, RPR W RFX, TPO, KERRI #### [facility] , Aspartate aminotransferase [ Enzymatic activity/volume] in Serum or PlasmaOrdered By: Beti Ham on 07-31-2024 AST [Catalytic activity/Vol] Aspartate aminotransferase [Enzymatic activity/volume] in Serum or Plasma 13-39 [facility] Basophils Auto (Bld) [#/Vol] Ordered By: Beti Ham on 07-31-2024 Basophils (Bld) [#/Vol] Automated basoph il count 0.0-0.2 [facility] Basophils/100 WBC Auto (Bld) Ordered By: Beti Ham on 02-19-2025 Basophils/100 WBC (Bld) Automated basophil % . [facility] Bilirubin.total [Mass/volume ] in Serum or PlasmaOrdered By: Beti Ham on 07-31-2024 Bilirubin [Mass/Vol] Bilirubin.total [Mass/volume] in Serum or Plasma 0.3-1.0 [facility] C reactive protein [Mass/vol ume] in Serum or PlasmaOrdered By: Beti Ham on 07-31-2024 CRP [Mass/Vol] C reactive protein [Mass/volume] in Serum or Plasma High 0.0-0.5 [facility] C-Reactive Proteinon 025 C-Reactive Protein 2.6 mg/dL High 0.0-0.5 [facility] Comment on above: Performed By: #### T 4F, CK, CRP, TSH3, ESR, CBC, CMP #### [address] #### HBCAB, JUSTINA, HBSAG, ALDOLASE, HCV RX PCR, HBSAB, THYGLOB AB, CHROMATIN, C4, C3, CH50, RPR W RFX, TPO, KERRI #### [facility] , Calcium [Mass/volume] in Ser um or PlasmaOrdered By: Beti Ham on 07-31-2024 Calcium [Mass/Vol] Calcium [Mass/volume] in Serum or Plasma 8.6-10.3 [facility] Carbon dioxide, total [Moles /volume] in Serum or PlasmaOrdered By: Beti Ham on 07-31-2024 CO2 [Moles/Vol] Carbon dioxide, total [Moles/volume] in Serum or Plasma High 21.0-31.0 [facility] Chloride [Moles/volume] in S anne or PlasmaOrdered By: Beti Ham on 07-31-2024 Chloride [Moles/Vol] Chloride [Moles/volume] in Serum or Plasma 98-107 [facility] Chromatin Antibodyon 025 Chromatin Antibody <0.2 Normal 0.0-0.9 [facility] Comment on above: Performed By: #### T 4F, CK, CRP, TSH3, ESR, CBC, CMP #### [place] [address] [place] #### HBCAB, JUSTINA, HBSAG, ALDOLASE, HCV RX PCR, HBSAB, THYGLOB AB, CHROMATIN, C4, C3, CH50, RPR W RFX, TPO, KERRI #### [facility] , Complement C3on 07-31-2024 Complement C3 189 mg/dL High 82-167 [facility] Comment on above: Result Comment: Perf ormed at: - [facility] [address] [id number] [employer] Dba: Iain Siegel PhD, Phone: [phone] Performed By: #### T 4F, CK, CRP, TSH3, ESR, CBC, CMP #### [address] #### HBCAB, JUSTINA, HBSAG, ALDOLASE, HCV RX PCR, HBSAB, THYGLOB AB, CHROMATIN, C4, C3, CH50, RPR W RFX, TPO, KERRI #### [facility] , Complement C4on 07-31-2024 Complement C4 36 mg/dL Normal 12-38 [facility] Comment on above: Performed By: #### T 4F, CK, CRP, TSH3, ESR, CBC, CMP #### [address] #### HBCAB, JUSTINA, HBSAG, ALDOLASE, HCV RX PCR, HBSAB, THYGLOB AB, CHROMATIN, C4, C3, CH50, RPR W RFX, TPO, KERRI #### [facility] , Complement Total (CH50)on Complement Total (CH50) >60 Normal >41 [facility] Comment on above: Result [...] out of range values. Performed at: - [facility] [id number] [employer] Dba: Iain Siegel PhD, Phone: [phone] PERFORMED BY: [place] [address] PATHOLOGIST [employer] SARAHI JUAREZ M.D. Performed By: #### T 4F, CK, CRP, TSH3, ESR, CBC, CMP #### [address] #### HBCAB, JUSTINA, HBSAG, ALDOLASE, HCV RX PCR, HBSAB, THYGLOB AB, CHROMATIN, C4, C3, CH50, RPR W RFX, TPO, KERRI #### [facility] , Complete Blood Count Auto Di ffon 07-31-2024 Basophils (Bld) [#/Vol] 0.1 10*3/uL Normal 0.0-0.2 [facility] Comment on above: Performed By: #### T 4F, CK, CRP, TSH3, ESR, CBC, CMP #### [place] [address] [place] #### HBCAB, JUSTINA, HBSAG, ALDOLASE, HCV RX PCR, HBSAB, THYGLOB AB, CHROMATIN, C4, C3, CH50, RPR W RFX, TPO, KERRI #### [facility] , Basophils/100 WBC (Bld) 0.9 % Normal . T [facility] Comment on above: Performed By: #### T 4F, CK, CRP, TSH3, ESR, CBC, CMP #### [place] [address] [place] #### HBCAB, JUSTINA, HBSAG, ALDOLASE, HCV RX PCR, HBSAB, THYGLOB AB, CHROMATIN, C4, C3, CH50, RPR W RFX, TPO, KERRI #### [facility] , Eosinophils (Bld) [#/Vol] 0.3 10*3/uL Normal 0.0-0.45 [facility] Comment on above: Performed By: #### T 4F, CK, CRP, TSH3, ESR, CBC, CMP #### [place] [address] [place] #### HBCAB, JUSTINA, HBSAG, ALDOLASE, HCV RX PCR, HBSAB, THYGLOB AB, CHROMATIN, C4, C3, CH50, RPR W RFX, TPO, KERRI #### [facility] , Eosinophils/100 WBC (Bld) 4.4 % Normal . [facility] Comment on above: Performed By: #### T 4F, CK, CRP, TSH3, ESR, CBC, CMP #### [place] [address] [place] #### HBCAB, JUSTINA, HBSAG, ALDOLASE, HCV RX PCR, HBSAB, THYGLOB AB, CHROMATIN, C4, C3, CH50, RPR W RFX, TPO, KERRI #### [facility] , Erythrocyte distribution width (RBC) [Ratio] 15.0 % Normal 11.9-15.3 [facility] Comment on above: Performed By: #### T 4F, CK, CRP, TSH3, ESR, CBC, CMP #### [place] [address] [place] #### HBCAB, JUSTINA, HBSAG, ALDOLASE, HCV RX PCR, HBSAB, THYGLOB AB, CHROMATIN, C4, C3, CH50, RPR W RFX, TPO, KERRI #### [facility] , Hematocrit (Bld) [Volume fraction] 34.5 % Normal 34.0-46.4 [facility] Comment on above: Performed By: #### T 4F, CK, CRP, TSH3, ESR, CBC, CMP #### [place] [address] [place] #### HBCAB, JUSTINA, HBSAG, ALDOLASE, HCV RX PCR, HBSAB, THYGLOB AB, CHROMATIN, C4, C3, CH50, RPR W RFX, TPO, KERRI #### [facility] , Hemoglobin (Bld) [Mass/Vol] 12.0 g/dL Normal 11.8-15.4 [facility] Comment on above: Performed By: #### T 4F, CK, CRP, TSH3, ESR, CBC, CMP #### [address] #### HBCAB, JUSTINA, HBSAG, ALDOLASE, HCV RX PCR, HBSAB, THYGLOB AB, CHROMATIN, C4, C3, CH50, RPR W RFX, TPO, KERRI #### [facility] , Lymphocytes (Bld) [#/Vol] 1.1 10*3/uL Normal 1.00-4.8 [facility] Comment on above: Performed By: #### T 4F, CK, CRP, TSH3, ESR, CBC, CMP #### [address] #### HBCAB, JUSTINA, HBSAG, ALDOLASE, HCV RX PCR, HBSAB, THYGLOB AB, CHROMATIN, C4, C3, CH50, RPR W RFX, TPO, KERRI #### [facility] , Lymphocytes/100 WBC (Bld) 15.8 % Normal . [facility] Comment on above: Performed By: #### T 4F, CK, CRP, TSH3, ESR, CBC, CMP #### [address] #### HBCAB, JUSTINA, HBSAG, ALDOLASE, HCV RX PCR, HBSAB, THYGLOB AB, CHROMATIN, C4, C3, CH50, RPR W RFX, TPO, KERRI #### [facility] , MCH (RBC) [Entitic mass] 36.0 pg High 24.7-34.3 [facility] Comment on above: Performed By: #### T 4F, CK, CRP, TSH3, ESR, CBC, CMP #### [address] #### HBCAB, JUSTINA, HBSAG, ALDOLASE, HCV RX PCR, HBSAB, THYGLOB AB, CHROMATIN, C4, C3, CH50, RPR W RFX, TPO, KERRI #### [facility] , MCV (RBC) [Entitic vol] 103.7 fL High 80-100 [facility] Comment on above: Performed By: #### T 4F, CK, CRP, TSH3, ESR, CBC, CMP #### [address] #### HBCAB, JUSTINA, HBSAG, ALDOLASE, HCV RX PCR, HBSAB, THYGLOB AB, CHROMATIN, C4, C3, CH50, RPR W RFX, TPO, KERRI #### [facility] , Mean Corpuscular HGB Conc 34.7 g/dL Normal 32.0-35.0 [facility] Comment on above: Performed By: #### T 4F, CK, CRP, TSH3, ESR, CBC, CMP #### [address] #### HBCAB, JUSTINA, HBSAG, ALDOLASE, HCV RX PCR, HBSAB, THYGLOB AB, CHROMATIN, C4, C3, CH50, RPR W RFX, TPO, KERRI #### [facility] , Monocytes (Bld) [#/Vol] 0.5 10*3/uL Normal 0.0-0.8 [facility] Comment on above: Performed By: #### T 4F, CK, CRP, TSH3, ESR, CBC, CMP #### [place] [address] [place] #### HBCAB, JUSTINA, HBSAG, ALDOLASE, HCV RX PCR, HBSAB, THYGLOB AB, CHROMATIN, C4, C3, CH50, RPR W RFX, TPO, KERRI #### [facility] , Monocytes/100 WBC (Bld) 7.0 % Normal . [facility] Comment on above: Performed By: #### T 4F, CK, CRP, TSH3, ESR, CBC, CMP #### [address] #### HBCAB, JUSTINA, HBSAG, ALDOLASE, HCV RX PCR, HBSAB, THYGLOB AB, CHROMATIN, C4, C3, CH50, RPR W RFX, TPO, KERRI #### [facility] , Neutrophils (Bld) [#/Vol] 5.2 10*3/uL Normal 1.8-7.7 [facility] Comment on above: Performed By: #### T 4F, CK, CRP, TSH3, ESR, CBC, CMP #### [place] [address] [place] #### HBCAB, JUSTINA, HBSAG, ALDOLASE, HCV RX PCR, HBSAB, THYGLOB AB, CHROMATIN, C4, C3, CH50, RPR W RFX, TPO, KERRI #### [facility] , Neutrophils/100 WBC (Bld) 71.9 % Normal . [facility] Comment on above: Performed By: #### T 4F, CK, CRP, TSH3, ESR, CBC, CMP #### [place] [address] [place] #### HBCAB, JUSTINA, HBSAG, ALDOLASE, HCV RX PCR, HBSAB, THYGLOB AB, CHROMATIN, C4, C3, CH50, RPR W RFX, TPO, KERRI #### [facility] , NRBC% 0.1 /100{WBC} Normal 0-0.5 [facility] Comment on above: Performed By: #### T 4F, CK, CRP, TSH3, ESR, CBC, CMP #### [place] [address] [place] #### HBCAB, JUSTINA, HBSAG, ALDOLASE, HCV RX PCR, HBSAB, THYGLOB AB, CHROMATIN, C4, C3, CH50, RPR W RFX, TPO, KERRI #### [facility] , Platelet mean volume (Bld) [Entitic vol] 7.9 fL Normal 6.3-10.7 [facility] Comment on above: Performed By: #### T 4F, CK, CRP, TSH3, ESR, CBC, CMP #### [facility] [address] [place] [address] [place] #### HBCAB, JUSTINA, HBSAG, ALDOLASE, HCV RX PCR, HBSAB, THYGLOB AB, CHROMATIN, C4, C3, CH50, RPR W RFX, TPO, KERRI #### [facility] , Platelets (Bld) [#/Vol] 204 10*3/uL Normal 150-450 [facility] Comment on above: Performed By: #### T 4F, CK, CRP, TSH3, ESR, CBC, CMP #### [place] [address] [place] #### HBCAB, JUSTINA, HBSAG, ALDOLASE, HCV RX PCR, HBSAB, THYGLOB AB, CHROMATIN, C4, C3, CH50, RPR W RFX, TPO, KERRI #### [facility] , RBC (Bld) [#/Vol] 3.32 10*6/uL Low 3.60-5.00 [facility] Comment on above: Performed By: #### T 4F, CK, CRP, TSH3, ESR, CBC, CMP #### [address] #### HBCAB, JUSTINA, HBSAG, ALDOLASE, HCV RX PCR, HBSAB, THYGLOB AB, CHROMATIN, C4, C3, CH50, RPR W RFX, TPO, KERRI #### [facility] , WBC (Bld) [#/Vol] 7.2 10*3/uL Normal 3.8-11.6 The [facility] Comment on above: Performed By: #### T 4F, CK, CRP, TSH3, ESR, CBC, CMP #### [place] [address] [place] #### HBCAB, JUSTINA, HBSAG, ALDOLASE, HCV RX PCR, HBSAB, THYGLOB AB, CHROMATIN, C4, C3, CH50, RPR W RFX, TPO, KERRI #### [facility] , Comprehensive Metabolic Pane mahendra 07-31-2024 Albumin [Mass/Vol] 3.7 g/dL Normal 3.5-5.7 [facility] Comment on above: Performed By: #### T 4F, CK, CRP, TSH3, ESR, CBC, CMP #### [facility] [address] [place] [address] [place] #### HBCAB, JUSTINA, HBSAG, ALDOLASE, HCV RX PCR, HBSAB, THYGLOB AB, CHROMATIN, C4, C3, CH50, RPR W RFX, TPO, KERRI #### [facility] , Albumin/Globulin [Mass ratio] 1.4 {ratio} Normal [facility] Comment on above: Performed By: #### T 4F, CK, CRP, TSH3, ESR, CBC, CMP #### [facility] [address] [place] [address] [place] #### HBCAB, JUSTINA, HBSAG, ALDOLASE, HCV RX PCR, HBSAB, THYGLOB AB, CHROMATIN, C4, C3, CH50, RPR W RFX, TPO, KERRI #### [facility] , ALP [Catalytic activity/Vol] 94 U/L Normal 34-104 [facility] Comment on above: Performed By: #### T 4F, CK, CRP, TSH3, ESR, CBC, CMP #### [place] [address] [place] #### HBCAB, JUSTINA, HBSAG, ALDOLASE, HCV RX PCR, HBSAB, THYGLOB AB, CHROMATIN, C4, C3, CH50, RPR W RFX, TPO, KERRI #### [facility] , ALT [Catalytic activity/Vol] 10 U/L Normal 7-52 [facility] Comment on above: Performed By: #### T 4F, CK, CRP, TSH3, ESR, CBC, CMP #### [place] [address] [place] #### HBCAB, JUSTINA, HBSAG, ALDOLASE, HCV RX PCR, HBSAB, THYGLOB AB, CHROMATIN, C4, C3, CH50, RPR W RFX, TPO, KERRI #### [facility] , Anion gap [Moles/Vol] 9.2 mmol/L Normal 6.0-15.0 [facility] Comment on above: Performed By: #### T 4F, CK, CRP, TSH3, ESR, CBC, CMP #### [place] [address] [place] #### HBCAB, JUSTINA, HBSAG, ALDOLASE, HCV RX PCR, HBSAB, THYGLOB AB, CHROMATIN, C4, C3, CH50, RPR W RFX, TPO, KERRI #### [facility] , AST [Catalytic activity/Vol] 14 U/L Normal 13-39 [facility] Comment on above: Performed By: #### T 4F, CK, CRP, TSH3, ESR, CBC, CMP #### [address] #### HBCAB, JUSTINA, HBSAG, ALDOLASE, HCV RX PCR, HBSAB, THYGLOB AB, CHROMATIN, C4, C3, CH50, RPR W RFX, TPO, KERRI #### [facility] , Bilirubin [Mass/Vol] 0.5 mg/dL Normal 0.3-1.0 [facility] Comment on above: Performed By: #### T 4F, CK, CRP, TSH3, ESR, CBC, CMP #### [place] [address] [place] #### HBCAB, JUSTINA, HBSAG, ALDOLASE, HCV RX PCR, HBSAB, THYGLOB AB, CHROMATIN, C4, C3, CH50, RPR W RFX, TPO, KERRI #### [facility] , Calcium [Mass/Vol] 9.2 mg/dL Normal 8.6-10.3 The [facility] Comment on above: Performed By: #### T 4F, CK, CRP, TSH3, ESR, CBC, CMP #### [place] [address] [place] #### HBCAB, JUSTINA, HBSAG, ALDOLASE, HCV RX PCR, HBSAB, THYGLOB AB, CHROMATIN, C4, C3, CH50, RPR W RFX, TPO, KERRI #### [facility] , Chloride [Moles/Vol] 102 mmol/L Normal 98-107 [facility] Comment on above: Performed By: #### T 4F, CK, CRP, TSH3, ESR, CBC, CMP #### [place] [address] [place] #### HBCAB, JUSTINA, HBSAG, ALDOLASE, HCV RX PCR, HBSAB, THYGLOB AB, CHROMATIN, C4, C3, CH50, RPR W RFX, TPO, KERRI #### [facility] , CO2 [Moles/Vol] 34.1 mmol/L High 21.0-31.0 [facility] Comment on above: Performed By: #### T 4F, CK, CRP, TSH3, ESR, CBC, CMP #### [address] #### HBCAB, JUSTINA, HBSAG, ALDOLASE, HCV RX PCR, HBSAB, THYGLOB AB, CHROMATIN, C4, C3, CH50, RPR W RFX, TPO, KERRI #### [facility] , Creatinine [Mass/Vol] 1.42 mg/dL High 0.60-1.20 [facility] Comment on above: Performed By: #### T 4F, CK, CRP, TSH3, ESR, CBC, CMP #### [place] [address] [place] #### HBCAB, JUSTINA, HBSAG, ALDOLASE, HCV RX PCR, HBSAB, THYGLOB AB, CHROMATIN, C4, C3, CH50, RPR W RFX, TPO, KERRI #### [facility] , Estimated GFR 38.332 mL/Min Normal [facility] Comment on above: Performed By: #### T 4F, CK, CRP, TSH3, ESR, CBC, CMP #### [place] [address] [place] #### HBCAB, JUSTINA, HBSAG, ALDOLASE, HCV RX PCR, HBSAB, THYGLOB AB, CHROMATIN, C4, C3, CH50, RPR W RFX, TPO, KERRI #### [facility] , Globulin (S) [Mass/Vol] 2.7 g/dL Normal T he [facility] Comment on above: Performed By: #### T 4F, CK, CRP, TSH3, ESR, CBC, CMP #### [address] #### HBCAB, JUSTINA, HBSAG, ALDOLASE, HCV RX PCR, HBSAB, THYGLOB AB, CHROMATIN, C4, C3, CH50, RPR W RFX, TPO, KERRI #### [facility] , Glucose [Mass/Vol] 95 mg/dL Normal 70-100 [facility] Comment on above: Result Comment: [facility] Glucose Reference Range is dependent on time and content of last meal. Glucose of more than 200 mg/dL in a nonstressed, ambulatory subject supports the diagnosis of Diabetes Mellitus. ADA recommended reference range Performed By: #### T 4F, CK, CRP, TSH3, ESR, CBC, CMP #### [place] [address] [place] #### HBCAB, JUSTINA, HBSAG, ALDOLASE, HCV RX PCR, HBSAB, THYGLOB AB, CHROMATIN, C4, C3, CH50, RPR W RFX, TPO, KERRI #### [facility] , Potassium [Moles/Vol] 4.3 mmol/L Normal 3.5-5.1 [facility] Comment on above: Performed By: #### T 4F, CK, CRP, TSH3, ESR, CBC, CMP #### [place] [address] [place] #### HBCAB, JUSTINA, HBSAG, ALDOLASE, HCV RX PCR, HBSAB, THYGLOB AB, CHROMATIN, C4, C3, CH50, RPR W RFX, TPO, KERRI #### [facility] , Protein [Mass/Vol] 6.4 g/dL Normal 6.4-8.9 [facility] Comment on above: Performed By: #### T 4F, CK, CRP, TSH3, ESR, CBC, CMP #### [address] #### HBCAB, JUSTINA, HBSAG, ALDOLASE, HCV RX PCR, HBSAB, THYGLOB AB, CHROMATIN, C4, C3, CH50, RPR W RFX, TPO, KERRI #### [facility] , Sodium [Moles/Vol] 141 mmol/L Normal 136-145 [facility] Comment on above: Performed By: #### T 4F, CK, CRP, TSH3, ESR, CBC, CMP #### [place] [address] [place] #### HBCAB, JUSTINA, HBSAG, ALDOLASE, HCV RX PCR, HBSAB, THYGLOB AB, CHROMATIN, C4, C3, CH50, RPR W RFX, TPO, KERRI #### [facility] , Urea nitrogen [Mass/Vol] 22 mg/dL Normal 7-25 [facility] Comment on above: Performed By: #### T 4F, CK, CRP, TSH3, ESR, CBC, CMP #### [address] #### HBCAB, JUSTINA, HBSAG, ALDOLASE, HCV RX PCR, HBSAB, THYGLOB AB, CHROMATIN, C4, C3, CH50, RPR W RFX, TPO, KERRI #### [facility] , Creatine Kinaseon 07-31-2024 CK [Catalytic activity/Vol] 23 U/L Low 30-223 [facility] Comment on above: Result Comment: PERF ORMED BY: [place] [address] PATHOLOGIST [employer] SARAHI JUAREZ M.D. Performed By: #### T 4F, CK, CRP, TSH3, ESR, CBC, CMP #### [place] [address] [place] #### HBCAB, JUSTINA, HBSAG, ALDOLASE, HCV RX PCR, HBSAB, THYGLOB AB, CHROMATIN, C4, C3, CH50, RPR W RFX, TPO, KERRI #### [facility] , Creatine kinase [Enzymatic a ctivity/volume] in Serum or PlasmaOrdered By: Beti Ham on 07-31-2024 CK [Catalytic activity/Vol] Creatine kinase [Enzymatic activity/volume] in Serum or Plasma Low 30-223 [facility] Creatinine [Mass/volume] in Serum or PlasmaOrdered By: Beti Ham on 07-31-2024 Creatinine [Mass/Vol] Creatinine [Mass/volume] in Serum or Plasma High 0.60-1.20 [facility] Eosinophils Auto (Bld) [#/Vo l]Ordered By: Beti Ham on 07-31-2024 Eosinophils (Bld) [#/Vol] Automated eosinophil count 0.0-0.45 [facility] Eosinophils/100 WBC Auto (Bl d)Ordered By: Beti Ham on 07-31-2024 Eosinophils/100 WBC (Bld) Automated eosinophil % . [facility] Erythrocyte Sedimentation Ra [place] 07-31-2024 ESR (Bld) [Velocity] 58 mm/h High 0-29 [facility] Comment on above: Result Comment: PERF ORMED BY: [place] [address] PATHOLOGIST [employer] SARAHI JUAREZ M.D. Performed By: #### T 4F, CK, CRP, TSH3, ESR, CBC, CMP #### [address] #### HBCAB, JUSTINA, HBSAG, ALDOLASE, HCV RX PCR, HBSAB, THYGLOB AB, CHROMATIN, C4, C3, CH50, RPR W RFX, TPO, KERRI #### [facility] , Erythrocyte distribution wid th Auto (RBC) [Ratio]Ordered By: Beti Ham on 07-31-2024 Erythrocyte distribution width (RBC) [Ratio] Erythrocyte distribution width [Ratio] by Automated count 11.9-15.3 [facility] Erythrocyte sedimentation ra te by Photometric methodOrdered By: Beti Ham on 07-31-2024 ESR Photometric method (Bld) [Velocity] Erythrocyte sedimentation rate by Photometric method High 0-29 [facility] Free T4 (Free Thyroxine)on 0 07-31-2024 Free T4 [Mass/Vol] 0.80 ng/dL Normal 0.61-1.12 [facility] Comment on above: Performed By: #### T 4F, CK, CRP, TSH3, ESR, CBC, CMP #### [facility] [address] [place] [address] [place] #### HBCAB, JUSTINA, HBSAG, ALDOLASE, HCV RX PCR, HBSAB, THYGLOB AB, CHROMATIN, C4, C3, CH50, RPR W RFX, TPO, KERRI #### [facility] , Globulin Calc (S) [Mass/Vol] Ordered By: Beti Ham on 07-31-2024 Globulin (S) [Mass/Vol] Serum globulin measurement by calculation (mass/volume) [facility] Glucose [Mass/volume] in Ser um or PlasmaOrdered By: Beti Ham on 07-31-2024 Glucose [Mass/Vol] Glucose [Mass/volume] in Serum or Plasma 70-100 [facility] Comment on above: ADA recommended refe rence rangeRandom Glucose Reference Range is dependent on time and content of last meal. Glucose of more than 200 mg/dL in a nonstressed, ambulatory subject supports the diagnosis of Diabetes Mellitus. Hematocrit Auto (Bld) [Volum e fraction]Ordered By: Beti Ham on 07-31-2024 Hematocrit (Bld) [Volume fraction] Hematocrit [Volume Fraction] of Blood by Automated count 34.0-46.4 [facility] Hemoglobin [Mass/volume] in BloodOrdered By: Beti Ham on 07-31-2024 Hemoglobin (Bld) [Mass/Vol] Hemoglobin [Mass/volume] in Blood 11.8-15.4 [facility] Hep C Ab wRfx to Qnt PCRon 0 07-31-2024 Hepatitis C Virus Antibody Non-Reactive Normal Non Reactive [facility] Comment on above: Performed By: #### T 4F, CK, CRP, TSH3, ESR, CBC, CMP #### [facility] [address] [place] [address] [place] #### HBCAB, JUSTINA, HBSAG, ALDOLASE, HCV RX PCR, HBSAB, THYGLOB AB, CHROMATIN, C4, C3, CH50, RPR W RFX, TPO, KERRI #### [facility] , Interpretation Hepatitis C Comment Normal . [facility] Comment on above: Result Comment: Not infected with HCV unless early or acute infection is suspected (which may be delayed in an immunocompromised individual), or other evidence exists to indicate HCV infection. Performed By: #### T 4F, CK, CRP, TSH3, ESR, CBC, CMP #### [place] [address] [place] #### HBCAB, JUSTINA, HBSAG, ALDOLASE, HCV RX PCR, HBSAB, THYGLOB AB, CHROMATIN, C4, C3, CH50, RPR W RFX, TPO, KERRI #### [facility] , Hepatitis B Core Antibodyon 07-31-2024 Hepatitis B Core Antibody Negative Normal Negative [facility] Comment on above: Result Comment: Perf ormed at: - [facility] [id number] Mysql Dba: Iain Siegel PhD, Phone: [phone] Performed By: #### T 4F, CK, CRP, TSH3, ESR, CBC, CMP #### [place] [address] [place] #### HBCAB, JUSTINA, HBSAG, ALDOLASE, HCV RX PCR, HBSAB, THYGLOB AB, CHROMATIN, C4, C3, CH50, RPR W RFX, TPO, KERRI #### [facility] , Hepatitis B Surface Antibody on 07-31-2024 Hepatitis B Surface Antibody Non-Reactive Normal . [facility] Comment on above: Result Comment: Non Reactive: Not immune to HBV infection. Equivocal: Unable to determine if anti-HBs is present at levels consistent with immunity. Reactive: Anti-HBs concentration detected at greater than 10 mIU/mL. Individual is considered to be immune to infection with HBV. Performed By: #### T 4F, CK, CRP, TSH3, ESR, CBC, CMP #### [place] [address] [place] #### HBCAB, JUSTINA, HBSAG, ALDOLASE, HCV RX PCR, HBSAB, THYGLOB AB, CHROMATIN, C4, C3, CH50, RPR W RFX, TPO, KERRI #### [facility] , Hepatitis B Surface Antigeno n 07-31-2024 HBsAg Screen Negative Normal Negative [facility] Comment on above: Result Comment: PERF ORMED BY: [place] [address] PATHOLOGIST F[employer]ANT [employer]FF MAKER SARAHI JUAREZ M.D. Performed By: #### T 4F, CK, CRP, TSH3, ESR, CBC, CMP #### [address] #### HBCAB, JUSTINA, HBSAG, ALDOLASE, HCV RX PCR, HBSAB, THYGLOB AB, CHROMATIN, C4, C3, CH50, RPR W RFX, TPO, KERRI #### [facility] , Leukocytes [#/volume] correc umang for nucleated erythrocytes in Blood by Automated counOrdered By: Beti Ham on 07-31-2024 WBC corrected for nucl RBC Auto (Bld) [#/Vol] Leukocytes [#/volume] corrected for nucleated erythrocytes in Blood by Automated coun 3.8-11.6 [facility] Lymphocytes Auto (Bld) [#/Vo l]Ordered By: Beti Ham on 07-31-2024 Lymphocytes (Bld) [#/Vol] Lymphocytes [#/volume] in Blood by Automated count 1.00-4.8 [facility] Lymphocytes/100 WBC Auto (Bl d)Ordered By: Beti Ham on 07-31-2024 Lymphocytes/100 WBC (Bld) Lymphocytes/100 leukocytes in Blood by Automated count . [facility] MCH Auto (RBC) [Entitic mass ]Ordered By: Beti Ham on 07-31-2024 MCH (RBC) [Entitic mass] MCH [Entitic mass] by Automated count High 24.7-34.3 [facility] MCHC Auto (RBC) [Mass/Vol]Or dered By: Beti Ham on 07-31-2024 MCHC (RBC) [Mass/Vol] MCHC [Mass/volume] by Automated count 32.0-35.0 [facility] MCV Auto (RBC) [Entitic vol] Ordered By: Beti Ham on 07-31-2024 MCV (RBC) [Entitic vol] MCV [Entitic vol ume] by Automated count High 80-100 [facility] Monocytes Auto (Bld) [#/Vol] Ordered By: Beti Ham on 07-31-2024 Monocytes (Bld) [#/Vol] Automated blood monocyte count 0.0-0.8 [facility] Monocytes/100 WBC Auto (Bld) Ordered By: Beti Ham on 07-31-2024 Monocytes/100 WBC (Bld) Automated monocyte % . [facility] Neutrophils Auto (Bld) [#/Vo l]Ordered By: Beti Hma on 07-31-2024 Neutrophils (Bld) [#/Vol] Neutrophils [#/volume] in Blood by Automated count 1.8-7.7 [facility] Neutrophils/100 WBC Auto (Bl d)Ordered By: Beti Ham on 07-31-2024 Neutrophils/100 WBC (Bld) Automated neutrophil % . [facility] No Panel InformationOrdered By: Beti Ham on 07-31-2024 Estimated GFR (CKD-EPI) 38.332 mL/Min [facility] Creatinine Clearance (Chem N/A [facility] Nucleated erythrocytes [Pres ence] in Blood by Automated countOrdered By: Beti Ham on 07-31-2024 Nucleated RBC Auto Ql (Bld) Nucleated erythrocytes [Presence] in Blood by Automated count 0-0.5 [facility] Platelet mean volume Auto (B ld) [Entitic vol]Ordered By: Beti Ham on 07-31-2024 Platelet mean volume (Bld) [Entitic vol] Platelet mean volume [Entitic volume] in Blood by Automated count 6.3-10.7 [facility] Platelets Auto (Bld) [#/Vol] Ordered By: Beti Ham on 07-31-2024 Platelets (Bld) [#/Vol] Platelets [#/vol ume] in Blood by Automated count 150-450 [facility] Potassium [Moles/volume] in Serum or PlasmaOrdered By: Beti Ham on 07-31-2024 Potassium [Moles/Vol] Potassium [Moles/volume] in Serum or Plasma 3.5-5.1 [facility] Protein [Mass/volume] in Ser um or PlasmaOrdered By: Beti Ham on 07-31-2024 Protein [Mass/Vol] Protein [Mass/volume] in Serum or Plasma 6.4-8.9 [facility] RBC Auto (Bld) [#/Vol]Ordere d By: Beti Ham on 07-31-2024 RBC (Bld) [#/Vol] Erythrocytes [#/volume] in Blood by Automated count Low 3.60-5.00 [facility] RPR w/rfx to Quant TP Abson 07-31-2024 RPR, Rfx Quant RPR Non-Reactive Normal Non Reactive [facility] Comment on above: Result Comment: Perf ormed at: - [facility] [address] [id number] Mysql Dba: Iain Siegel PhD, Phone: [phone] PERFORMED BY: [place] [address] PATHOLOGIST [employer] SARAHI JUAREZ M.D. Performed By: #### T 4F, CK, CRP, TSH3, ESR, CBC, CMP #### [address] #### HBCAB, JUSTINA, HBSAG, ALDOLASE, HCV RX PCR, HBSAB, THYGLOB AB, CHROMATIN, C4, C3, CH50, RPR W RFX, TPO, KERRI #### [facility] , Serum or plasma albumin/glob ulin mass ratioOrdered By: Beti Ham on 07-31-2024 Albumin/Globulin [Mass ratio] Serum or plasma albumin/globulin mass ratio [facility] Serum or plasma anion gap de terminationOrdered By: Beti Ham on 07-31-2024 Anion gap [Moles/Vol] Serum or plasma anion gap determination 6.0-15.0 [facility] Sodium [Moles/volume] in Ser um or PlasmaOrdered By: Beti Ham on 07-31-2024 Sodium [Moles/Vol] Sodium [Moles/volume] in Serum or Plasma 136-145 [facility] Thyroid Peroxidase Antibodie son 07-31-2024 Thyroid Peroxidase Antibodies 12 [IU]/mL Normal 0-34 [facility] Comment on above: Result Comment: Perf ormed at: [facility] [address] [id number] Mysql Dba: Iain Siegel PhD, Phone: [phone] Performed By: #### T 4F, CK, CRP, TSH3, ESR, CBC, CMP #### [place] [address] [place] #### HBCAB, JUSTINA, HBSAG, ALDOLASE, HCV RX PCR, HBSAB, THYGLOB AB, CHROMATIN, C4, C3, CH50, RPR W RFX, TPO, KERRI #### [facility] , Thyroid Stimulating Hormoneo n 07-31-2024 TSH Qn 2.45 m[IU]/L Normal 0.45-5.33 [facility] Comment on above: Result Comment: PERF ORMED BY: [place] [address] PATHOLOGIST [employer]ANT [employer] SARAHI JUAREZ M.D. Performed By: #### T 4F, CK, CRP, TSH3, ESR, CBC, CMP #### [place] [address] [place] #### HBCAB, JUSTINA, HBSAG, ALDOLASE, HCV RX PCR, HBSAB, THYGLOB AB, CHROMATIN, C4, C3, CH50, RPR W RFX, TPO, KERRI #### [facility] , Thyrotropin [Units/volume] i n Serum or PlasmaOrdered By: Beti Ham on 07-31-2024 TSH Qn Thyrotropin [Units/volume] in Serum or Plasma 0.45-5.33 [facility] Thyroxine (T4) free [Mass/vo lume] in Serum or PlasmaOrdered By: Beti Ham on 07-31-2024 Free T4 [Mass/Vol] Thyroxine (T4) free [Mass/volume] in Serum or Plasma 0.61-1.12 [facility] Urea nitrogen [Mass/volume] in Serum or PlasmaOrdered By: Beti Jitendra on 07-31-2024 Urea nitrogen [Mass/Vol] Urea nitrogen [Mass/volume] in Serum or Plasma 01-03 [facility] WBC Auto (Bld) [#/Vol]Ordere d By: Beti Jitendra on 07-31-2024 WBC (Bld) [#/Vol] Leukocytes [#/volume] in Blood by Automated count 3.8-11.6 [facility] Office Visiton 05-21-2024 Follow-up visit [id number] Linda Nascimento 1950 F Date Provider Department Center 05/21/2024 ENOCH RAMIREZ JUAN [facility] Family History Problem Relation Age of Onset Lung cancer Mother Stroke Father Family Status - Relation Status Age at Mother Father Level of Service:90502 CO OFFICE/OUTPATIENT ESTABLISHED LOW MDM 20 MIN Normal [facility] Herpes Simplex Virus By PCRo n 05-07-2024 HSV 1 Subtype by PCR Not detected Normal [facility] Comment on above: Order Comment: CALL doctor LB474 tel. [phone], FAX [phone] CALL doctor LB474 tel. [phone], FAX [phone] Result Comment: The specimen submitted for testing did not meet ARUP submission guidelines. Testing was performed on a specimen that did not meet validated specimen type requirements. Performance characteristics of this assay may be affected. Interpret results with caution. Please refer to the [facility] Test Directory for information on specimen acceptability: [email or web address]/testing Performed By: #### A 0095 #### [facility] [address] [place] [address] HSV 2 Subtype by PCR Not detected Normal [facility] Comment on above: Order Comment: CALL doctor LB474 tel. [phone], FAX [phone] CALL doctor LB474 tel. [phone], FAX [phone] Result Comment: The specimen submitted for testing did not meet ARUP submission guidelines. Testing was performed on a specimen that did not meet validated specimen type requirements. Performance characteristics of this assay may be affected. Interpret results with caution. Please refer to the [facility] Test Directory for information on specimen acceptability: [email or web address]/testing INTERPRETIVE INFORMATION: HSV-1 and HSV-2 Subtype by PCR A negative result does not rule out the presence of PCR inhibitors in the patient specimen or test-specific nucleic acid in concentrations below the level of detection by this test. This test was developed and its performance characteristics determined by [employer]. It has not been cleared or approved by the [place] Food and Drug Administration. This test was performed in a CLIA certified laboratory and is intended for clinical purposes. Performed By: [employer] [address] [place] [address] [employer] Operator: Rodrigo Milner MD, PhD [facility] Number: [id number] Performed By: #### A 0095 #### [facility] [address] [place] [address] Rejection Notificationon Reason see below [facility] Comment on above: Order Comment: CALL doctor LB474 tel. [phone], FAX [phone] CALL doctor LB474 tel. [phone], FAX [phone] Result Comment: Unab le to perform testing; specimen quantity not sufficient. To perform testing the specimen will need to be recollected. QNS Performed By: #### R EJEC #### [facility] [address] [place] [address] Rejected Test [id number] [facility] Comment on above: Order Comment: CALL doctor LB474 tel. [phone], FAX [phone] CALL doctor LB474 tel. [phone], FAX [phone] Performed By: #### R EJEC #### [facility] [address] [place] [address] [facility] Miscellaneous test 1on 05-03-2024 [employer] [id number] [facility] Comment on above: Order Comment: CALL doctor LB474 tel. [phone], FAX [phone] Performed By: #### 9 [id number] #### [facility] [address] [place] [place] [id number] Culture, Wound Aerobic, Anae robicon 05-03-2024 Culture, Wound Aerobic, Anaerobic ORDER#: [id number] ORDERED BY: MICHELLE QUINTERO SOURCE: Face Left eye ocular fluid COLLECTED: 05/03/24 07:26 ANTIBIOTICS AT MANJ[facility]ER.: RECEIVED : 05/03/24 07:39 CALL doctor LB474 tel. [phone], FAX [phone] Culture, Wound Aerobic, Anaerobic FINAL 05/08/24 08:22 Direct Exam: NO NEUTROPHILS SEEN Direct Exam: NO ORGANISMS SEEN Cult,Aerobe/Anaerobe : NO GROWTH 5 DAYS Performed at [address] [address] ([phone] [facility] Comment on above: Performed By: #### I CWAN #### [facility] [address] [place] [address] Herpes Simplex Virus By PCRo n 05-03-2024 Herpes Simplex Virus Subtype Source eye Normal [facility] Comment on above: Order Comment: CALL doctor LB474 tel. [phone], FAX [phone] CALL doctor LB474 tel. [phone], FAX [phone] Result Comment: ocul ar fld Performed By: #### A 0095 #### [facility] [address] [place] [address] CBC AUTO DIFFon 10-14-2022 BASO # 0.1 103/ul Normal 0.0-0.1 [facility] Comment on above: Performed By: #### C BC ####[facility] [address] [place] [id number]. Slick Broderick Basophils/100 WBC (Bld) 0.6 % Normal 0.2-2.0 [facility] Comment on above: Performed By: #### C BC ####[facility] [address] [place] [id number]. Slick Broderick EO # 0.4 103/ul Normal 0.0-0.7 [facility] Comment on above: Performed By: #### C BC ####[facility] [address] [place] [address]Dr. Slick Broderick Eosinophils/100 WBC (Bld) 3.9 % Normal 0.9-7.0 [facility] Comment on above: Performed By: #### C BC ####[facility] [address] [place] [address]Dr. Slick Broderick Erythrocyte distribution width (RBC) [Ratio] 13.2 % Normal 11.0-15.0 [facility] Comment on above: Performed By: #### C BC ####[facility] [address] [place] [address]Dr. Slick Broderick Hematocrit (Bld) [Volume fraction] 32.4 % Critically low 36.0-48.0 [facility] Comment on above: Performed By: #### C BC ####[facility] [address] [place], [place] [address]Dr. Slick Broderick Hemoglobin (Bld) [Mass/Vol] 10.4 g/dL Critically low 12.0-16.0 [facility] Comment on above: Performed By: #### C BC ####[facility] A[address] [place], [place] [address]Dr. Slick Broderick IG # 0.19 10e3/ul Critically high 0.00-0.03 [facility] Comment on above: Performed By: #### C BC ####[facility] [address] [place] [address]Dr. Slick Broderick IG % 2.1 % Critically high 0.0-0.5 [facility] Comment on above: Performed By: #### C BC ####[facility] [address] [place] [address]Dr. Slick Broderick LYMPH # 1.0 103/ul Critically low 1.2-3.8 [facility] Comment on above: Performed By: #### C BC ####[facility] [address] [place] [address]Dr. Slick Broderick Lymphocytes/100 WBC (Bld) 11.4 % Critically low 20.5-60.0 [facility] Comment on above: Performed By: #### C BC ####[facility] [address] [place] [address]DrEmma Broderick MANUAL DIFF REQ NO Normal [facility] Comment on above: Performed By: #### C BC ####[facility] [address] [place] [address]Dr. Slick Broderick MCH (RBC) [Entitic mass] 32.0 pg Normal 26.7-34.0 [facility] Comment on above: Performed By: #### C BC ####[facility] [address] [place] [address]Dr. Slick Broderick MCHC (RBC) [Mass/Vol] 32.1 g/dL Normal 29.9-35.2 [facility] Comment on above: Performed By: #### C BC ####[facility] [address] [place], [place] [address]DrEmma Broderick MCV (RBC) [Entitic vol] 99.7 fL Critically high 81.0-99 .0 [facility] Comment on above: Performed By: #### C BC ####[facility] [address] [place], [place] [address]DrEmma Broderick MONO # 1.0 103/ul Critically high 0.3-0.8 [facility] Comment on above: Performed By: #### C BC ####[facility] [address] [place], [place] [address]DrEmma Broderick Monocytes/100 WBC (Bld) 10.8 % Normal 1.7-12.0 [facility] Comment on above: Performed By: #### C BC ####[facility] [address] [place], [place] [address]DrEmma Broderick NEUT # 6.4 103/ul Normal 1.4-6.5 [facility] Comment on above: Performed By: #### C BC ####[facility] [address] [place], [place] [address]DrEmma Broderick Neutrophils/100 WBC (Bld) 71.2 % Normal 43.0-75.0 [facility] Comment on above: Performed By: #### C BC ####[facility] [address] [place] [address]Dr. Slick Broderick Platelet mean volume (Bld) [Entitic vol] 9.8 fL Normal 9.5-13.5 [facility] Comment on above: Performed By: #### C BC ####[facility] [address] [place] [address]Dr. Slick Broderick PLT 174 103/ul Normal 150-450 [facility] Comment on above: Performed By: #### C BC ####[facility] [address] [place] [address]Dr. Slick Broderick RBC 3.25 106/ul Critically low 4.20-5.40 [facility] Comment on above: Performed By: #### C BC ####[facility] [address] [place] [address]Dr. Slick Broderick WBC 8.9 103/ul Normal 4.0-11.0 [facility] Comment on above: Performed By: #### C BC ####[facility] [address] [place] [address]Dr. Slick Broderick CRPon 10-14-2022 CRP 0.5 mg/dL Normal <=1.0 [facility] Comment on above: Performed By: #### C RP, BMP ####[facility] [address] [place], [place] [address]Dr. Slick Broderick D-DIMERon 10-14-2022 D-DIMER 0.86 mg/L FEU Critically high <=0.59 [facility] Comment on above: Performed By: #### D DIM ####[facility] [address] [place], [place] [address]Dr. Slick Broderick D-DIMER COMMENTS SEE BELOW Normal [facility] [...] generalized hospitalization. Performed By: #### D DIM ####[facility] [address] [place] [address]Dr. Slick Broderick PROF CHEM 8 (BAS METB)on Anion gap [Moles/Vol] 10.1 mmol/L Normal [facility] Comment on above: Performed By: #### C RP, BMP ####[facility] [address] [place] [address]Dr. Slick Broderick Calcium [Mass/Vol] 9.3 mg/dL Normal 8.5-10.1 [facility] Comment on above: Performed By: #### C RP, BMP ####[facility] [address] [place], [place] [address]Dr. Slick Broderick Chloride [Moles/Vol] 98 mmol/L Normal 98-107 [facility] Comment on above: Performed By: #### C RP, BMP ####[facility] [address] [place], [place] [address]Dr. Slick Broderick CO2 [Moles/Vol] 30.3 mmol/L Normal 21.0-32.0 [facility] Comment on above: Performed By: #### C RP, BMP ####[facility] [address] [place], [place] [address]Dr. Slick Broderick Creatinine [Mass/Vol] 2.15 mg/dL Critically high 0.55-1.02 [facility] Comment on above: Performed By: #### C RP, BMP ####[facility] [address]bs[address] [place], [place] [address]Dr. Slick Broderick EGFR-AF [place] 27 mL/min/1.73m2 Critically low >=60 [facility] Comment on above: Performed By: #### C RP, BMP ####[facility] [address] [place], [place] [address]Dr. Slick Broderick EGFR-NON AF [place] 22 mL/min/1.73m2 Critically low >=60 [facility] Comment on above: Performed By: #### C RP, BMP ####[facility] [address] [place] [address]Dr. Slick Broderick Glucose [Mass/Vol] 116 mg/dL Critically high 74-106 [facility] Comment on above: Performed By: #### C RP, BMP ####[facility] [address] [place] [address]Dr. Slick Broderick Potassium [Moles/Vol] 4.4 mmol/L Normal 3.5-5.1 [facility] Comment on above: Performed By: #### C RP, BMP ####[facility] [address] [place], [place] [address]Dr. Slick Broderick Sodium [Moles/Vol] 134 mmol/L Critically low 136-[address] [facility] Comment on above: Performed By: #### C RP, BMP ####[facility] [address] [place], [place] [address]Dr. Slick Broderick Urea nitrogen [Mass/Vol] 33.0 mg/dL Critically high 7.0-18.0 [facility] Comment on above: Performed By: #### C RP, BMP ####[facility] [address] [place], [place] [address]Dr. Slick Broderick Urea nitrogen/Creatinine [Mass ratio] 15.3 mg/mg Normal [facility] Comment on above: Performed By: #### C RP, BMP ####[facility] [address] [place], [place] [address]Dr. Slick Broderick US JENNY DOP LEG LTon 10-15-19 23 US JENNY DOP LEG LT Normal [facility] XR FEMUR LTon 10-14-2022 XR FEMUR LT Normal [facility] ECHOCARDIO M/2D COMPLETEon 0 09-14-2022 ECHOCARDIO M/2D COMPLETE Normal [facility] PRBC LEUKOREDUCEDon 06-09-20 22 PRBC LEUKOREDUCED Normal [facility] Comment on above: Performed By: #### P RBC ####[facility] [address] [place], [place] [address]Dr. Slick Broderick BNPon 04-23-2022 Natriuretic peptide B (Bld) [Mass/Vol] 83843.0 pg/mL Critically high <=900.0 [facility] Comment on above: Performed By: #### C MP, CMADM, BNP ####[facility] [address] [place] [id number]. Slick Broderick CARDIAC REYMUNDO ADMITon 022 CK [Catalytic activity/Vol] 121 U/L Normal 26-192 [facility] Comment on above: Performed By: #### C MP, CMADM, BNP ####[facility] [address] [place] [address]Dr. Slick Broderick CK.MB [Mass/Vol] 5.67 ng/mL Critically high <=3.60 [facility] Comment on above: Performed By: #### C MP, CMADM, BNP ####[facility] [address] [place] [address]Dr. Slick Davie HSTROP 3667.9 pg/mL Critically high 4.0-51.3 [facility] Comment on above: Result Comment: CUT- OFF POINTS HAVE BEEN ESTABLISHED BASED ON THE FOURTH UNIVERSAL DEFINITIONS OF MYOCARDIALINFARCTION. THE UPPER REFERENCE LIMIT (URL) OF TROPONIN, DEFINED THE 99TH PERCENTILE OFcTnI DISTRIBUTION IN A REFERENCE POPULATION, HAS BEEN CONFIRMED THE DECISION THRESHOLDFOR DC DIAGNOSIS. Performed By: #### C MP, CMADM, BNP ####[facility] [address] [place] [address]Dr. Slick Broderick NEHEMIAH 225 ng/mL Critically high 9-82 [facility] Comment on above: Performed By: #### C MP, CMADM, BNP ####[facility] [address] [place] [address]Dr. Slick Broderick CBC AUTO DIFFon 04-23-2022 BASO # 0.0 103/ul Normal 0.0-0.1 [facility] Comment on above: Performed By: #### C BC ####[facility] [address] [place] [address]Dr. Slick Broderick Basophils/100 WBC (Bld) 0.3 % Normal 0.2-2.0 [facility] Comment on above: Performed By: #### C BC ####[facility] [address] [place], [place] [address]DrEmma Broderick EO # 0.0 103/ul Normal 0.0-0.7 [facility] Comment on above: Performed By: #### C BC ####[facility] [address] [place], [place] [address]DrEmma Broderick Eosinophils/100 WBC (Bld) 0.3 % Critically low 0.9-7.0 [facility] Comment on above: Performed By: #### C BC ####[facility] [address] [place], [place] [address]DrEmma Broderick Erythrocyte distribution width (RBC) [Ratio] 14.0 % Normal 11.0-15.0 [facility] [facility] Comment on above: Performed By: #### C BC ####[facility] Zgputokubr[address] [place], [place] [address]Dr. Slick Broderick Hematocrit (Bld) [Volume fraction] 21.9 % Critically low 36.0-48.0 [facility] Comment on above: Performed By: #### C BC ####[facility] Nufpxsroaq2[address] [place], [place] [address]DrEmma Broderick Hemoglobin (Bld) [Mass/Vol] 7.1 g/dL Critically low 12.0-16.0 [facility] Comment on above: Performed By: #### C BC ####[facility] Vpofijpghj[address] [place], [place] [address]DrEmma Broderick IG # 0.04 10e3/ul Critically high 0.00-0.03 [facility] Comment on above: Performed By: #### C BC ####[facility] Wivypxlhip[address] [place], [place] [address]DrEmma Broderick IG % 0.4 % Normal 0.0-0.5 [facility] Comment on above: Performed By: #### C BC ####[facility] Zntwbwsjeq7[address] [place], [place] [address]DrEmma Broderick LYMPH # 0.8 103/ul Critically low 1.2-3.8 [facility] Comment on above: Performed By: #### C BC ####[facility] Fnxvokurvj95[address] [place] [phone] Slick Davie Lymphocytes/100 WBC (Bld) 7.7 % Critically low 20.5-60.0 [facility] Comment on above: Performed By: #### C BC ####[facility] Agmtcrxggi03[address] [place] [address]DrEmma Meaganwendie Broderick MANUAL DIFF REQ NO Normal [facility] Comment on above: Performed By: #### C BC ####[facility] Hwhhuqaxva2772 [place] [address]DrEmma Slick Davie MCH (RBC) [Entitic mass] 29.3 pg Normal 26.7-34.0 [facility] Comment on above: Performed By: #### C BC ####[facility] Elqgdvqzhw3[address] [place], [place] [address]DrEmma Slick Davie MCHC (RBC) [Mass/Vol] 32.4 g/dL Normal 29.9-35.2 [facility] Comment on above: Performed By: #### C BC ####[facility] Rhnsykffur[address] [place], [place] [address]DrEmma Broderick MCV (RBC) [Entitic vol] 90.5 fL Normal 81.0-99.0 [facility] Comment on above: Performed By: #### C BC ####[facility] Ffcqizopid2298 [place] [address]DrEmma Rhodeswendie Davie MONO # 1.0 103/ul Critically high 0.3-0.8 [facility] Comment on above: Performed By: #### C BC ####[facility] Lcvulsaavq0[address] [place], [place] [address]DrEmma Broderick Monocytes/100 WBC (Bld) 9.6 % Normal 1.7-12.0 [facility] Comment on above: Performed By: #### C BC ####[facility] Gfnutoicef6420[address] [place], [place] [address]Dr. Slick Broderick NEUT # 8.6 103/ul Critically high 1.4-6.5 [facility] Comment on above: Performed By: #### C BC ####[facility] Eythktbkco8541 [place] [address]Dr. Slick Broderick Neutrophils/100 WBC (Bld) 81.7 % Critically high 43.0-75.0 [facility] Comment on above: Performed By: #### C BC ####[facility] Vqrrmjwiot7595 [place] [address]Dr. Slick Broderick Platelet mean volume (Bld) [Entitic vol] 10.0 fL Normal 9.5-13.5 [facility] Comment on above: Performed By: #### C BC ####[facility] Xqofyktosr9907 [place] [address]Dr. Slick Broderick PLT 195 103/ul Normal 150-450 [facility] Comment on above: Performed By: #### C BC ####[facility] Abezaasplc9287[address] [place], [place] [address]Dr. Slick Broderick RBC 2.42 106/ul Critically low 4.20-5.40 [facility] Comment on above: Performed By: #### C BC ####[facility] Hgrnwegeyx3617[address] [place], [place] [address]Dr. Slick Broderick WBC 10.5 103/ul Normal 4.0-11.0 [facility] Comment on above: Performed By: #### C BC ####[facility] Heqkpbaajc9346[address] [place], [place] [address]Dr. Slick Broderick CT HEAD WO CONon 04-23-2022 CT HEAD WO CON Normal [facility] CULTURE BLOODon 04-23-2022 Microscopic examination of blood, culture Culture Observations: NO GROWTH AT 5 DAYS. Normal [facility] Comment on above: Performed By: #### B LDCX2 ####[facility] Nxdkisvtxa8778 [place] [address]Dr. Slick Broderick Microscopic examination of blood, culture Culture Observations: NO GROWTH AT 5 DAYS. Normal [facility] Comment on above: Performed By: #### B LDCX1 ####[facility] Sqtaoxdnca6362 [place] [address]Dr. Slick Davie Covid-19 PCR (CVDTB)on 04-12 SARS-CoV-2 (COVID-19) RNA DONNIE+probe Ql (Unsp spec) Not detected Normal NOT DETECTED [facility] Comment on above: Result Comment: When diagnostic [...] for this test is supported by the It Support Engineer of Health and Human Service's declaration that [...] be used). Performed By: #### C VDTBH ####[facility] Fufffdcqkk0182[address] [place], [place] [address]Dr. Slick Davie LACTATE/LACTIC ACIDon 2021 Lactate [Moles/Vol] 1.2 mmol/L Normal 0.4-1.9 [facility] Comment on above: Performed By: #### L ACT ####[facility] Hrkhimjvep8104[address] [place], [place] [address]Dr. Slick Broderick PROF 14(COMP METB)on 022 Albumin [Mass/Vol] 2.9 g/dL Critically low 3.4-5.[address] [facility] Comment on above: Performed By: #### C MP, CMADM, BNP ####[facility] Pwzazemktr2120[address] [place], [place] [address]Dr. Slick Broderick Albumin/Globulin [Mass ratio] 0.9 {ratio} Normal [facility] Comment on above: Performed By: #### C MP, CMADM, BNP ####[facility] Odkwyguvpc2[address] [place] [address]Dr. Slick Broderick ALP [Catalytic activity/Vol] 88 U/L Normal 46-116 [facility] Comment on above: Performed By: #### C MP, CMADM, BNP ####[facility] Krxwjsbwfn0071 [place] [address]Dr. Slick Broderick ALT [Catalytic activity/Vol] 22 U/L Normal 14-59 [facility] Comment on above: Performed By: #### C MP, CMADM, BNP ####[facility] Pjccqujsco7177 [place] [address]Dr. Slick Broderick Anion gap [Moles/Vol] 14.0 mmol/L Normal [facility] Comment on above: Performed By: #### C MP, CMADM, BNP ####[facility] Jxhhffegqa040[address] [place], [place] [address]Dr. Slick Broderick AST [Catalytic activity/Vol] 26 U/L Normal 15-37 [facility] Comment on above: Performed By: #### C MP, CMADM, BNP ####[facility] Bgtmovjmlv1276[address] [place], [place] [address]Dr. Slick Broderick Bilirubin [Mass/Vol] 0.5 mg/dL Normal 0.2-1.0 [facility] Comment on above: Performed By: #### C MP, CMADM, BNP ####[facility] Fmrkrdvblz3353 [place] [address]Dr. Slick Broderick Calcium [Mass/Vol] 9.7 mg/dL Normal 8.5-10.1 [facility] Comment on above: Performed By: #### C MP, CMADM, BNP ####[facility] Ybhrzsrkru9812[address] [place], [place] [address]Dr. Slick Broderick Chloride [Moles/Vol] 105 mmol/L Normal 98-107 [facility] Comment on above: Performed By: #### C MP, CMADM, BNP ####[facility] Pfsgleuhlx9371 [place] [address]Dr. Slick Broderick CO2 [Moles/Vol] 27.0 mmol/L Normal 21.0-32.0 [facility] Comment on above: Performed By: #### C MP, CMADM, BNP ####[facility] Inxatuhxzi20[address] [place] [address]Dr. Slick Broderick Creatinine [Mass/Vol] 1.57 mg/dL Critically high 0.55-1.02 [facility] Comment on above: Performed By: #### C MP, CMADM, BNP ####[facility] Urrgnqrviq4533 [place] [address]Dr. Slick Broderick EGFR-AF [place] 39 mL/min/1.73m2 Critically low >=60 [facility] Comment on above: Performed By: #### C MP, CMADM, BNP ####[facility] Plfkvlqbrg3852[address] [place], [place] [address]Dr. Slick Broderick EGFR-NON AF [place] 32 mL/min/1.73m2 Critically low >=60 [facility] Comment on above: Performed By: #### C MP, CMADM, BNP ####[facility] Oaxeziqkfc495[address] [place], [place] [address]Dr. Slick Broderick Globulin (S) [Mass/Vol] 3.2 g/dL Normal [facility] Comment on above: Performed By: #### C MP, CMADM, BNP ####[facility] Swooydytaw34[address] [place] [address]Dr. Slick Broderick Glucose [Mass/Vol] 128 mg/dL Critically high 74-106 [facility] Comment on above: Performed By: #### C MP, CMADM, BNP ####[facility] Znwbtcfkwo4732 [place] [address]Dr. Slick Broderick Potassium [Moles/Vol] 4.0 mmol/L Normal 3.5-5.1 [facility] Comment on above: Performed By: #### C MP, CMADM, BNP ####[facility] Ajnblphqmg6379[address] [place], [place] [address]Dr. Slick Broderick Protein [Mass/Vol] 6.1 g/dL Critically low 6.4-8.2 [facility] Comment on above: Performed By: #### C MP, CMADM, BNP ####[facility] Sczwmdaong6226 [place] [address]Dr. Slick Broderick Sodium [Moles/Vol] 142 mmol/L Normal 136-145 [facility] Comment on above: Performed By: #### C MP, CMADM, BNP ####[facility] Lzsrkrioxi5084[address] [place], [place] [address]Dr. Slick Broderick Urea nitrogen [Mass/Vol] 34.0 mg/dL Critically high 7.0-18.0 [facility] Comment on above: Performed By: #### C MP, CMADM, BNP ####[facility] Ghtufcspfb4932[address] [place], [place] [address]Dr. Slick Broderick Urea nitrogen/Creatinine [Mass ratio] 21.7 mg/mg Normal [facility] Comment on above: Performed By: #### C MP, CMADM, BNP ####[facility] Ahquolyblf4988[address] [place], [place] [address]Dr. Slick Broderick PROTIMEon 04-23-2022 INR Coag (PPP) [Relative time] 1.10 {INR} Normal [facility] Comment on above: Performed By: #### P T, PTT ####[facility] Wpyvilhlpl2144[address] [place], [place] [address]Dr. Slick Broderick INR GUIDELINES SEE BELOW Normal [facility] Comment on above: Result Comment: EDMUND RED INR: 2.0 - 3.0 CONDITIONS NOT LISTED BELOW 2.5 - 3.5 FOR PROSTHETIC HEART VALVE REPLACEMENT 2.5 - 3.5 RECURRENT THROMBOSIS Performed By: #### P T, PTT ####[facility] Kmtpthixdl926[address] [place], [place] [address]Dr. Slick Broderick PT Coag (PPP) [Time] 11.8 s Critically high 9.0-11.6 [facility] Comment on above: Performed By: #### P T, PTT ####[facility] Lqtuncovoz6176[address] [place], [place] [address]Dr. Slick Broderick PTTon 04-23-2022 aPTT Coag (Bld) [Time] 27.7 s Normal 22.3-36.2 Th e [facility] Comment on above: Performed By: #### P T, PTT ####[facility] Chmrmdrina1822[address] [place], [place] [address]Dr. Slick Broderick TYPE AND SCREENon 04-23-2022 TYPE AND SCREEN Negative Normal [facility] Comment on above: Performed By: #### T NS ####[facility] Dppajfoyfs828[address] [place], [place] [address]Dr. Slick Broderick XR CHEST 1 Von 04-23-2022 XR CHEST 1 V Normal [facility] CBC AUTO DIFFon 04-22-2022 BASO # 0.0 103/ul Normal 0.0-0.1 [facility] Comment on above: Performed By: #### C BC ####[facility] Ciymzhxaju8475[address] [place], [place] [address]Dr. Slick Broderick Basophils/100 WBC (Bld) 0.3 % Normal 0.2-2.0 [facility] Comment on above: Performed By: #### C BC ####[facility] Ftbbxvmlbl0517[address] [place], [place] [address]Dr. Slick Broderick EO # 0.1 103/ul Normal 0.0-0.7 [facility] Comment on above: Performed By: #### C BC ####[facility] Tgydjuvasv7945[address] [place], [place] [address]Dr. Slick Davie Eosinophils/100 WBC (Bld) 1.4 % Normal 0.9-7.0 [facility] Comment on above: Performed By: #### C BC ####[facility] Srhlqwktmz6256[address] [place], [place] [address]Dr. Slick Broderick Erythrocyte distribution width (RBC) [Ratio] 13.8 % Normal 11.0-15.0 [facility] Comment on above: Performed By: #### C BC ####[facility] Cflmiknamr5038[address] [place], [place] [address]Dr. Slick Davie Hematocrit (Bld) [Volume fraction] 27.4 % Critically low 36.0-48.0 [facility] Comment on above: Performed By: #### C BC ####[facility] Wmkxbfbfjx8453 [place] [phone]. Slick Broderick Hemoglobin (Bld) [Mass/Vol] 8.8 g/dL Critically low 12.0-16.0 [facility] Comment on above: Performed By: #### C BC ####[facility] Upfngazvsm4592 [place] [phone]. Slick Broderick IG # 0.04 10e3/ul Critically high 0.00-0.03 [facility] Comment on above: Performed By: #### C BC ####[facility] Kwxajhvorq5713 [place] [phone]. Slick Broderick IG % 0.6 % Critically high 0.0-0.5 [facility] Comment on above: Performed By: #### C BC ####[facility] Xoherzaenz8650[address] [place], [place] [address]Dr. Slick Broderick LYMPH # 0.7 103/ul Critically low 1.2-3.8 [facility] Comment on above: Performed By: #### C BC ####[facility] Tdxotmxgce8888 [place] [address]Dr. Slick Broderick Lymphocytes/100 WBC (Bld) 9.8 % Critically low 20.5-60.0 [facility] Comment on above: Performed By: #### C BC ####[facility] Ndskrivtuq4335 [place] [address]Dr. Slick Broderick MANUAL DIFF REQ NO Normal [facility] Comment on above: Performed By: #### C BC ####[facility] Pnslnabmxz[address] [place], [place] [address]Dr. Slick Broderick MCH (RBC) [Entitic mass] 28.9 pg Normal 26.7-34.0 [facility] Comment on above: Performed By: #### C BC ####[facility] Pmobgomnrf675[address] [place], [place] [address]Dr. Slick Broderick MCHC (RBC) [Mass/Vol] 32.1 g/dL Normal 29.9-35.2 [facility] Comment on above: Performed By: #### C BC ####[facility] Oxyqwxfsxi3220 [place] [phone]. Slick Broderick MCV (RBC) [Entitic vol] 90.1 fL Normal 81.0-99.0 [facility] Comment on above: Performed By: #### C BC ####[facility] Bljlkuqqum7444 [place] [phone]. Slick Broderick MONO # 0.6 103/ul Normal 0.3-0.8 [facility] Comment on above: Performed By: #### C BC ####[facility] Yzvjlgnyoc2660 [place] [address]Dr. Slick Broderick Monocytes/100 WBC (Bld) 7.6 % Normal 1.7-12.0 [facility] Comment on above: Performed By: #### C BC ####[facility] Mbriwsbssj7828[address] [place], [place] [address]Dr. Slick Broderick NEUT # 5.9 103/ul Normal 1.4-6.5 [facility] Comment on above: Performed By: #### C BC ####[facility] Xhzzfspeza4824[address] [place], [place] [address]Dr. Slick Broderick Neutrophils/100 WBC (Bld) 80.3 % Critically high 43.0-75.0 [facility] Comment on above: Performed By: #### C BC ####[facility] Mpgcomjkfq8527[address] [place], [place] [address]Dr. Slick Broderick Platelet mean volume (Bld) [Entitic vol] 9.5 fL Normal 9.5-13.5 [facility] Comment on above: Performed By: #### C BC ####[facility] Fjiawqhpsx9716 [place] [phone]. Slick Broderick PLT 204 103/ul Normal 150-450 [facility] Comment on above: Performed By: #### C BC ####[facility] Yppbllsoyu8035 [place] [phone]. Slick Davie RBC 3.04 106/ul Critically low 4.20-5.40 [facility] Comment on above: Performed By: #### C BC ####[facility] Tjtpstdoqu5770 [place] [phone]. Slick Broderick WBC 7.3 103/ul Normal 4.0-11.0 [facility] Comment on above: Performed By: #### C BC ####[facility] Jjmisztpaz8931 [place], [place] [address]Le. Slick Broderick BASO # 0.0 103/ul Normal 0.0-0.1 [facility] Comment on above: Performed By: #### C BC ####[facility] Siepfhtywu3953 [place] [phone]. Slick Broderick Basophils/100 WBC (Bld) 0.5 % Normal 0.2-2.0 [facility] Comment on above: Performed By: #### C BC ####[facility] Vfvqiptnmv6891 [place] [phone]. Slick Broderick EO # 0.6 103/ul Normal 0.0-0.7 [facility] Comment on above: Performed By: #### C BC ####[facility] Gtbiptzttc6533 [place] [phone]. Slick Broderick Eosinophils/100 WBC (Bld) 10.4 % Critically high 0.9-7.0 [facility] Comment on above: Performed By: #### C BC ####[facility] Utvzqgxift0263 [place] [phone]. Slick Broderick Erythrocyte distribution width (RBC) [Ratio] 14.0 % Normal 11.0-15.0 [facility] Comment on above: Performed By: #### C BC ####[facility] Nurftyhlgf0092 [place] [phone]. Slick Broderick Hematocrit (Bld) [Volume fraction] 26.5 % Critically low 36.0-48.0 [facility] Comment on above: Performed By: #### C BC ####[facility] Vvdoshgest[address] [place], [place] [address]Dr. Slick Broderick Hemoglobin (Bld) [Mass/Vol] 8.4 g/dL Critically low 12.0-16.0 [facility] Comment on above: Performed By: #### C BC ####[facility] Wcoqdvlhrb9357 [place] [phone]. Slick Broderick IG # 0.02 10e3/ul Normal 0.00-0.03 [facility] Comment on above: Performed By: #### C BC ####[facility] Jwnjtwubey5502 [place] [phone]. Slick Davie IG % 0.4 % Normal 0.0-0.5 [facility] Comment on above: Performed By: #### C BC ####[facility] Ntndpscffp7490 [place] [address]Dr. Slick Broderick LYMPH # 0.9 103/ul Critically low 1.2-3.8 [facility] Comment on above: Performed By: #### C BC ####[facility] Xazbulsbzx4239 [place] [address]Dr. Slick Broderick Lymphocytes/100 WBC (Bld) 15.6 % Critically low 20.5-60.0 [facility] Comment on above: Performed By: #### C BC ####[facility] Desbneugwe7713 [place] [address]Dr. Slick Broderick MANUAL DIFF REQ NO Normal [facility] Comment on above: Performed By: #### C BC ####[facility] Qifdpyfwaf4967 [place] [address]Dr. Slick Broderick MCH (RBC) [Entitic mass] 29.2 pg Normal 26.7-34.0 [facility] Comment on above: Performed By: #### C BC ####[facility] Xvenynbzbt312[address] [place], [place] [address]Dr. Slick Davie MCHC (RBC) [Mass/Vol] 31.7 g/dL Normal 29.9-35.2 [facility] Comment on above: Performed By: #### C BC ####[facility] Wigqrzmlxx7467 [place] [address]Dr. Slick Broderick MCV (RBC) [Entitic vol] 92.0 fL Normal 81.0-99.0 [facility] Comment on above: Performed By: #### C BC ####[facility] Xswjimdilo9912 [place] [phone]. Slick Broderick MONO # 0.6 103/ul Normal 0.3-0.8 [facility] Comment on above: Performed By: #### C BC ####[facility] Hwxtqrihwl0269 [place] [phone]. Slick Broderick Monocytes/100 WBC (Bld) 10.1 % Normal 1.7-12.0 [facility] Comment on above: Performed By: #### C BC ####[facility] Jfwgqdjtzn8188 [place] [phone]. Slick Broderick NEUT # 3.5 103/ul Normal 1.4-6.5 [facility] Comment on above: Performed By: #### C BC ####[facility] Jhqdcmepps6669 [place] [address]Dr. Slick Broderick Neutrophils/100 WBC (Bld) 63.0 % Normal 43.0-75.0 [facility] Comment on above: Performed By: #### C BC ####[facility] Ylvxhavfkf1682 [place] [phone]. Slick Broderick Platelet mean volume (Bld) [Entitic vol] 10.0 fL Normal 9.5-13.5 [facility] Comment on above: Performed By: #### C BC ####[facility] Ibaylmbhwf3325 [place] [phone]. Slick Broderick PLT 198 103/ul Normal 150-450 [facility] Comment on above: Performed By: #### C BC ####[facility] Pxxtjdisnk5133 [place] [phone]. Slick Broderick RBC 2.88 106/ul Critically low 4.20-5.40 [facility] Comment on above: Performed By: #### C BC ####[facility] Ditybizpln9425 [place] [phone]. Slick Broderick WBC 5.6 103/ul Normal 4.0-11.0 [facility] Comment on above: Performed By: #### C BC ####[facility] Vdrvjedjmc0697 [place] [address]Dr. S[address] Bro[address] CT HEAD WO CONon 04-22-2022 CT HEAD WO CON Normal [facility] POINT OF CARE GLUCOSEon 04-12 Glucose [Mass/Vol] 110 mg/dL Critically high 74-106 T [facility] Comment on above: Performed By: #### P OCGLUC ####[facility] Srndbrgodb4628[address] [place], [place] [address]Dr. Slick Broderick PROF 14(COMP METB)on 022 Albumin [Mass/Vol] 3.0 g/dL Critically low 3.4-5.[address] [facility] Comment on above: Performed By: #### C MP ####[facility] Faffrftvfk7106[address] [place], [place] [address]Dr. Slick Broderick Albumin/Globulin [Mass ratio] 0.9 {ratio} Normal [facility] Comment on above: Performed By: #### C MP ####[facility] Blllragidr3753[address] [place], [place] [address]Dr. Slick Broderick ALP [Catalytic activity/Vol] 93 U/L Normal 46-116 [facility] Comment on above: Performed By: #### C MP ####[facility] Dnampewtzn836[address] [place], [place] [address]Dr. Slick Broderick ALT [Catalytic activity/Vol] 22 U/L Normal 14-59 [facility] Comment on above: Performed By: #### C MP ####[facility] Nkdyigvsmy9136[address] [place], [place] [address]Dr. Slick Broderick Anion gap [Moles/Vol] 8.9 mmol/L Normal [facility] Comment on above: Performed By: #### C MP ####[facility] Dvllsgyhiu669[address] [place], [place] [address]Dr. Slick Broderick AST [Catalytic activity/Vol] 18 U/L Normal 15-37 [facility] Comment on above: Performed By: #### C MP ####[facility] Uetdxfphxm500[address] [place], [place] [address]Dr. Slick Broderick Bilirubin [Mass/Vol] 0.3 mg/dL Normal 0.2-1.0 [facility] Comment on above: Performed By: #### C MP ####[facility] Pdznydbjuy6521 [place] [address]Dr. Slick Broderick Calcium [Mass/Vol] 9.6 mg/dL Normal 8.5-10.1 [facility] Comment on above: Performed By: #### C MP ####[facility] Iuxfhoyjvz1803[address] [place], [place] [address]Dr. Slick Broderick Chloride [Moles/Vol] 104 mmol/L Normal 98-107 [facility] Comment on above: Performed By: #### C MP ####[facility] Afewhummua1652[address] [place], [place] [address]Dr. Slick Broderick CO2 [Moles/Vol] 30.8 mmol/L Normal 21.0-32.0 [facility] Comment on above: Performed By: #### C MP ####[facility] Xdducculpp2165[address] [place], [place] [address]Dr. Slick Broderick Creatinine [Mass/Vol] 1.73 mg/dL Critically high 0.55-1.02 [facility] Comment on above: Performed By: #### C MP ####[facility] Epllxmmpsm748[address] [place], [place] [address]Dr. Slick Broderick EGFR-AF [place] 35 mL/min/1.73m2 Critically low >=60 [facility] Comment on above: Performed By: #### C MP ####[facility] Zgqljzzmcc9[address] [place], [place] [address]Dr. Slick Broderick EGFR-NON AF [place] 29 mL/min/1.73m2 Critically low >=60 [facility] Comment on above: Performed By: #### C MP ####[facility] Hpneakatfo3039[address] [place], [place] [address]Dr. Slick Broderick Globulin (S) [Mass/Vol] 3.4 g/dL Normal T [facility] Comment on above: Performed By: #### C MP ####[facility] Rehustywgq6133[address] [place], [place] [address]Dr. Slick Broderick Glucose [Mass/Vol] 94 mg/dL Normal 74-106 [facility] Comment on above: Performed By: #### C MP ####[facility] Oyzetkaymj2739 [place] [address]Dr. Slick Broderick Potassium [Moles/Vol] 4.7 mmol/L Normal 3.5-5.1 [facility] Comment on above: Performed By: #### C MP ####[facility] Notivfektj5417[address] [place], [place] [address]Dr. Slick Broderick Protein [Mass/Vol] 6.4 g/dL Normal 6.4-8.2 [facility] Comment on above: Performed By: #### C MP ####[facility] Druvtnbgmg[address] [place], [place] [address]Dr. Slick Broderick Sodium [Moles/Vol] 139 mmol/L Normal 136-145 [facility] Comment on above: Performed By: #### C MP ####[facility] Wakenldjvc7[address] [place], [place] [address]Dr. Slick Broderick Urea nitrogen [Mass/Vol] 46.0 mg/dL Critically high 7.0-18.0 [facility] Comment on above: Performed By: #### C MP ####[facility] Zanjmhgokn95[address] [place], [place] [address]Dr. Slick Broderick Urea nitrogen/Creatinine [Mass ratio] 26.6 mg/mg Normal [facility] Comment on above: Performed By: #### C MP ####[facility] Sqolkftzwh4[address] [place], [place] [address]Dr. Slick Broderick PROF CHEM 8 (BAS METB)on Anion gap [Moles/Vol] 8.6 mmol/L Normal [facility] Comment on above: Performed By: #### B MP ####[facility] Zlbebarzcn[address] [place], [place] [address]Dr. Slick Broderick Calcium [Mass/Vol] 9.9 mg/dL Normal 8.5-10.1 [facility] Comment on above: Performed By: #### B MP ####[facility] Skxwkbdsls9616[address] [place], [place] [address]Dr. Meaganwendie Broderick Chloride [Moles/Vol] 103 mmol/L Normal 98-107 [facility] Comment on above: Performed By: #### B MP ####[facility] Ptdauhjeyq[address] [place] [address]Dr. Slick Broderick CO2 [Moles/Vol] 29.5 mmol/L Normal 21.0-32.0 [facility] Comment on above: Performed By: #### B MP ####[facility] Anuhqpucto12[address] [place] [address]Dr. Slick Broderick Creatinine [Mass/Vol] 1.62 mg/dL Critically high 0.55-1.02 [facility] Comment on above: Performed By: #### B MP ####[facility] Umwmbcxsmg5[address] [place] [address]Dr. Slick Broderick EGFR-AF [place] 38 mL/min/1.73m2 Critically low >=60 [facility] Comment on above: Performed By: #### B MP ####[facility] Ituzjsefcj[address] [place], [place] [address]Dr. Slick Davie EGFR-NON AF [place] 31 mL/min/1.73m2 Critically low >=60 [facility] Comment on above: Performed By: #### B MP ####[facility] Pzrrusdtcn038[address] [place] [address]Dr. Slick Broderick Glucose [Mass/Vol] 125 mg/dL Critically high 74-106 [facility] Comment on above: Performed By: #### B MP ####[facility] Mppwajjfxg2408 [place] [address]Dr. Slick Broderick Potassium [Moles/Vol] 4.1 mmol/L Normal 3.5-5.1 [facility] Comment on above: Performed By: #### B MP ####[facility] Ikuilwbbgj3563 [place] [address]Dr. Slick Broderick Sodium [Moles/Vol] 137 mmol/L Normal 136-145 [facility] Comment on above: Performed By: #### B MP ####[facility] Tlzctyicev6868 [place] [address]Dr. Slick Broderick Urea nitrogen [Mass/Vol] 41.0 mg/dL Critically high 7.0-18.0 [facility] Comment on above: Performed By: #### B MP ####[facility] Vkoulpxxnz5903 [place] [address]Dr. Slick Broderick Urea nitrogen/Creatinine [Mass ratio] 25.3 mg/mg Normal [facility] Comment on above: Performed By: #### B MP ####[facility] Egundecnql9279 [place] [address]Dr. Meaganwendie Davie PROTIMEon 04-22-2022 INR Coag (PPP) [Relative time] 1.08 {INR} Normal [facility] Comment on above: Performed By: #### P T, PTT ####[facility] Wzdtlvzoue[address] [place], [place] [address]Dr. Slick Broderick INR GUIDELINES SEE BELOW Normal [facility] Comment on above: Result Comment: EDMUND RED INR: 2.0 - 3.0 CONDITIONS NOT LISTED BELOW 2.5 - 3.5 FOR PROSTHETIC HEART VALVE REPLACEMENT 2.5 - 3.5 RECURRENT THROMBOSIS Performed By: #### P T, PTT ####[facility] Yhbmophhbb1890[address] [place], [place] [address]Dr. Slick Davie PT Coag (PPP) [Time] 11.6 s Normal 9.0-11.6 [facility] Comment on above: Performed By: #### P T, PTT ####[facility] Ysyyyvrjrb16[address] [place], [place] [address]Dr. Meaganwendie Davie PTTon 04-22-2022 aPTT Coag (Bld) [Time] 30.7 s Normal 22.3-36.[address] [facility] Comment on above: Performed By: #### P T, PTT ####[facility] Fspfubqxdr2450[address] [place], [place] [address]Dr. Meaganwendie Broderick XR TIB_FIB RT 2Von 2 XR TIB_FIB RT 2V Normal [facility] CBC AUTO DIFFon 04-21-2022 BASO # 0.0 103/ul Normal 0.0-0.1 [facility] Comment on above: Performed By: #### C BC ####[facility] Hpimvxvylr13[address] [place] [address]Dr. Slick Broderick Basophils/100 WBC (Bld) 0.3 % Normal 0.2-2.0 [facility] Comment on above: Performed By: #### C BC ####[facility] Wbvxazogaj3085[address] [place], [place] [address]Dr. Slick Broderick EO # 0.6 103/ul Normal 0.0-0.7 [facility] Comment on above: Performed By: #### C BC ####[facility] Sidiswdkru516[address] [place], [place] [address]Dr. Slick Davie Eosinophils/100 WBC (Bld) 10.2 % Critically high 0.9-7.0 [facility] Comment on above: Performed By: #### C BC ####[facility] Weqhcsgvnq3886[address] [place], [place] [address]Dr. Slick Broderick Erythrocyte distribution width (RBC) [Ratio] 14.2 % Normal 11.0-15.0 [facility] Comment on above: Performed By: #### C BC ####[facility] Zygxkahdqa8313[address] [place], [place] [address]Dr. Slick Broderick Hematocrit (Bld) [Volume fraction] 25.5 % Critically low 36.0-48.0 [facility] Comment on above: Performed By: #### C BC ####[facility] Stgnxmrazq5116[address] [place], [place] [address]Dr. Slick Broderick Hemoglobin (Bld) [Mass/Vol] 8.1 g/dL Critically low 12.0-16.0 [facility] Comment on above: Performed By: #### C BC ####[facility] Hnvqzbnokd9005[address] [place], [place] [address]Dr. Slick Broderick IG # 0.02 10e3/ul Normal 0.00-0.03 [facility] Comment on above: Performed By: #### C BC ####[facility] Rlulaezvvs9770[address] [place], [place] [address]Dr. Slick Broderick IG % 0.3 % Normal 0.0-0.5 [facility] Comment on above: Performed By: #### C BC ####[facility] Mnaocouapd72[address] [place] [phone]. Meaganwendie Davie LYMPH # 0.8 103/ul Critically low 1.2-3.8 [facility] [place] [facility] Comment on above: Performed By: #### C BC ####[facility] Jjeyghofau5124 [place] [phone]. Slick Broderick Lymphocytes/100 WBC (Bld) 13.2 % Critically low 20.5-60.0 [facility] Comment on above: Performed By: #### C BC ####[facility] Krxuygsosh6955 [place] [address]Dr. Slick Broderick MANUAL DIFF REQ NO Normal [facility] Comment on above: Performed By: #### C BC ####[facility] Ernvaxqyrj7276 [place] [address]Dr. Slick Broderick MCH (RBC) [Entitic mass] 29.5 pg Normal 26.7-34.0 [facility] Comment on above: Performed By: #### C BC ####[facility] Clejjsatae6764 [place] [address]Dr. Meaganwendie Broderick MCHC (RBC) [Mass/Vol] 31.8 g/dL Normal 29.9-35.2 [facility] Comment on above: Performed By: #### C BC ####[facility] Hcrvrmyyzd5723 [place] [phone]. Slick Broderick MCV (RBC) [Entitic vol] 92.7 fL Normal 81.0-99.0 [facility] Comment on above: Performed By: #### C BC ####[facility] Vgiggjcivk7299 [place] [phone]. Slick Broderick MONO # 0.6 103/ul Normal 0.3-0.8 [facility] Comment on above: Performed By: #### C BC ####[facility] Ulnmpwwmif0542 [place] [phone]. Slick Broderick Monocytes/100 WBC (Bld) 9.2 % Normal 1.7-12.0 [facility] Comment on above: Performed By: #### C BC ####[facility] Jbfmazkayk4882 [place] [address]Dr. Slick Broderick NEUT # 4.1 103/ul Normal 1.4-6.5 [facility] Comment on above: Performed By: #### C BC ####[facility] Ixcdvowcxz0253 [place] [phone]. Slick Broderick Neutrophils/100 WBC (Bld) 66.8 % Normal 43.0-75.0 [facility] Comment on above: Performed By: #### C BC ####[facility] Zzdlukffuf7218 [place] [address]Dr. Slick Broderick Platelet mean volume (Bld) [Entitic vol] 9.5 fL Normal 9.5-13.5 [facility] Comment on above: Performed By: #### C BC ####[facility] Xidtoomuyt7114 [place] [address]Dr. Slick Broderick PLT 189 103/ul Normal 150-450 [facility] Comment on above: Performed By: #### C BC ####[facility] Ptsqywfdih0320 [place] [phone]. Slick Broderick RBC 2.75 106/ul Critically low 4.20-5.40 [facility] Comment on above: Performed By: #### C BC ####[facility] Mtvbxgritl2923 [place] [address]Dr. Slick Broderick WBC 6.2 103/ul Normal 4.0-11.0 [facility] Comment on above: Performed By: #### C BC ####[facility] Jdlbcqxepl8807 [place] [phone]. Slick Broderick BASO # 0.1 103/ul Normal 0.0-0.1 [facility] Comment on above: Performed By: #### C BC ####[facility] Lzsybxbnpi7639 [place] [address]Dr. Slick Broderick Basophils/100 WBC (Bld) 0.8 % Normal 0.2-2.0 [facility] Comment on above: Performed By: #### C BC ####[facility] Mlyuotrfxj1083 [place] [address]DrEmma Slick Broderick EO # 0.8 103/ul Critically high 0.0-0.7 [facility] Comment on above: Performed By: #### C BC ####[facility] Bjwxaanrsr1073 [place] [address]DrEmma Slick Broderick Eosinophils/100 WBC (Bld) 11.7 % Critically high 0.9-7.0 [facility] Comment on above: Performed By: #### C BC ####[facility] Vixlsqiopd47[address] [place], [place] [address]Dr. Meaganwendie Broderick Erythrocyte distribution width (RBC) [Ratio] 14.1 % Normal 11.0-15.0 [facility] Comment on above: Performed By: #### C BC ####[facility] Qhufmviesn5869[address] [place], [place] [address]DrEmma Meaganwendie Broderick Hematocrit (Bld) [Volume fraction] 27.3 % Critically low 36.0-48.0 [facility] Comment on above: Performed By: #### C BC ####[facility] Qvtqbbzswx360[address] [place], [place] [address]Dr. Slick Broderick Hemoglobin (Bld) [Mass/Vol] 8.4 g/dL Critically low 12.0-16.0 [facility] Comment on above: Performed By: #### C BC ####[facility] Eldligwjks4105[address] [place], [place] [address]Dr. Meaganwendie Broderick IG # 0.02 10e3/ul Normal 0.00-0.03 [facility] Comment on above: Performed By: #### C BC ####[facility] Mowkhlohjk3706[address] [place], [place] [address]Dr. Meaganwendie Broderick IG % 0.3 % Normal 0.0-0.5 [facility] Comment on above: Performed By: #### C BC ####[facility] Yijqzdyepl7[address] [place], [place] [address]DrEmma Broderick LYMPH # 1.0 103/ul Critically low 1.2-3.8 [facility] Comment on above: Performed By: #### C BC ####[facility] Cqieozbiqt8215 [place] [address]Dr. Slick Broderick Lymphocytes/100 WBC (Bld) 14.5 % Critically low 20.5-60.0 [facility] Comment on above: Performed By: #### C BC ####[facility] Qvseqgpubn3809 [place] [address]Dr. Slick Broderick MANUAL DIFF REQ NO Normal [facility] Comment on above: Performed By: #### C BC ####[facility] Irfnrpaehe6444 [place] [address]Dr. Slick Broderick MCH (RBC) [Entitic mass] 29.2 pg Normal 26.7-34.0 [facility] Comment on above: Performed By: #### C BC ####[facility] Biewmzdxvy080[address] [place], [place] [address]Dr. Slick Broderick MCHC (RBC) [Mass/Vol] 30.8 g/dL Normal 29.9-35.2 [facility] Comment on above: Performed By: #### C BC ####[facility] Ctifzlvzvr1357[address] [place], [place] [address]Dr. Slick Broderick MCV (RBC) [Entitic vol] 94.8 fL Normal 81.0-99.0 [facility] Comment on above: Performed By: #### C BC ####[facility] Drhmvzgnis539[address] [place], [place] [address]Dr. Slick Broderick MONO # 0.6 103/ul Normal 0.3-0.8 [facility] Comment on above: Performed By: #### C BC ####[facility] Lgsdvkdnvt577[address] [place], [place] [address]Dr. Slick Broderick Monocytes/100 WBC (Bld) 9.7 % Normal 1.7-12.0 [facility] Comment on above: Performed By: #### C BC ####[facility] Lhmfmanitm2815[address] [place], [place] [address]Dr. Slick Broderick NEUT # 4.2 103/ul Normal 1.4-6.5 [facility] Comment on above: Performed By: #### C BC ####[facility] Dphzkbxaxv1102 [place] [address]Dr. Slick Broderick Neutrophils/100 WBC (Bld) 63.0 % Normal 43.0-75.0 [facility] Comment on above: Performed By: #### C BC ####[facility] Gpfzwphqpn6610 [place] [address]Dr. Slick Broderick Platelet mean volume (Bld) [Entitic vol] 10.0 fL Normal 9.5-13.5 [facility] Comment on above: Performed By: #### C BC ####[facility] Xlyqumvokk2586[address] [place], [place] [address]Dr. Slick Broderick PLT 210 103/ul Normal 150-450 [facility] Comment on above: Performed By: #### C BC ####[facility] Rsrxyxtmqh3815[address] [place], [place] [address]Dr. Slick Broderick RBC 2.88 106/ul Critically low 4.20-5.40 [facility] Comment on above: Performed By: #### C BC ####[facility] Gegkdxexdy29[address] [place], [place] [address]Dr. Slick Broderick WBC 6.6 103/ul Normal 4.0-11.0 [facility] Comment on above: Performed By: #### C BC ####[facility] Kvtcyfwsxv6569[address] [place], [place] [address]Dr. Slick Broderick CRPon 04-21-2022 CRP 0.4 mg/dL Normal <=1.0 [facility] Comment on above: Performed By: #### H STROPN, CRP, CMP ####[facility] Dpupvfcmql1492[address] [place], [place] [address]Dr. Slick Broderick CT HEAD WO CONon 04-21-2022 CT HEAD WO CON Normal [facility] CULTURE BLOODon 04-21-2022 Microscopic examination of blood, culture Culture Observations: NO GROWTH AT 5 DAYS. Normal [facility] Comment on above: Performed By: #### B LDCX2 ####[facility] Yorqkesfoy[address] [place] [phone]. Slick Broderick Microscopic examination of blood, culture Culture Observations: NO GROWTH AT 5 DAYS. Normal [facility] Comment on above: Performed By: #### B LDCX1 ####[facility] Pfbqlolhes2165 [place], [place] [address]Uv. Slick Broderick CULTURE URINEon 04-21-2022 CULTURE URINE Culture Observations: MODERATE GROWTH OF MIXED GENITAL OMAR. NO POTENTIAL PATHOGENS SEEN. Normal [facility] Comment on above: Performed By: #### U RCX ####[facility] Mlmpepyxpm9131 [place] [phone]. Slick Broderick Covid-19 PCR (CVDTBH)on 04-12 SARS-CoV-2 (COVID-19) RNA DONNIE+probe Ql (Unsp spec) Not detected Normal NOT DETECTED [facility] Comment on above: Result Comment: When diagnostic [...] for this test is supported by the [place] of [employer] and Human Service's declaration that [...] be used). Performed By: #### C VDTBH ####[facility] Qkhiyiiinu6430 [place] [phone]. Slick Broderick ER URINE PROFILEon 2 Bilirubin Ql (U) Negative Normal NEGATIVE [facility] Comment on above: Performed By: #### E JANIS PLEITEZ ####[facility] Yifeefputx0646 [place] [phone]. Slick Broderick Clarity (U) CLEAR Normal CLEAR [facility] Comment on above: Performed By: #### AMBERLY PEDRORO ####[facility] Trfhtqgwvk9994[address] [place], [place] [address]Dr. Slick Broderick Color (U) LT. YELLOW Normal YELLOW [facility] Comment on above: Performed By: #### AMOS PEDROICRO ####[facility] Wdsqnthmhr8399[address] [place], [place] [address]Dr. Slick Broderick ERUAHD A micrscopic examination will be performed if indicated. Normal [facility] Comment on above: Performed By: #### AMBERLY PEDRORO ####[facility] Apoibqoxem529[address] [place], [place] [address]Dr. Slick Broderick Glucose Ql (U) Negative Normal NEGATIVE [facility] Comment on above: Performed By: #### AMOS PEDROICRO ####[facility] Nmsknrjyel347[address] [place], [place] [address]Dr. Slick Broderick Hemoglobin Ql (U) Negative Normal NEGATIVE [facility] Comment on above: Performed By: #### AMOS PEDROICRO ####[facility] Kpuwfvnfun4094[address] [place], [place] [address]Dr. Slick Broderick Ketones Ql (U) Negative Normal NEGATIVE [facility] Comment on above: Performed By: #### Dennise PLEITEZ UMICRO ####[facility] Dygvdvmaed3105[address] [place], [place] [address]Dr. Slick Broderick LEUKOCYTES TRACE Abnormal NEGATIVE [facility] Comment on above: Performed By: #### AMOS PEDROICRO ####[facility] Zmhvfdlwoh1606[address] [place], [place] [address]Dr. Slick Broderick Nitrite Ql (U) Negative Normal NEGATIVE [facility] Comment on above: Performed By: #### Dennise PLEITEZ UMICRO ####[facility] Qpiefqikka8217[address] [place], [place] [address]Dr. Slick Broderick pH (U) 5.5 [pH] Normal 5-9 [facility] Comment on above: Performed By: #### JANIS PEDRO ####[facility] Bnbccxkmai4468 [place] [address]Dr. Slick Broderick SPEC GRAVITY 1.010 Normal 1.005-<=1.0 25 [facility] Comment on above: Performed By: #### JANIS PEDRO ####[facility] Tmkhgaiurg5052 [place] [address]Dr. Slick Broderick UA PROTEIN Negative Normal NEGATIVE/ TRACE [facility] Comment on above: Performed By: #### JANIS PEDRO ####[facility] Iwjwlikeku2102 [place] [address]Dr. Slick Broderick UR MICRO IND INDICATED Normal [facility] Comment on above: Performed By: #### JANIS PEDRO ####[facility] Gtdfprablp9029 [place] [address]Dr. Slick Broderick Urobilinogen Qn (U) 0.2 {Hiren'U}/dL Normal 0.2 - 1. 0 [facility] Comment on above: Performed By: #### JANIS PEDRO ####[facility] Lbwbrkmrlx16[address] [place], [place] [address]Dr. Meaganwendie Davie LACTATE/LACTIC ACIDon 2021 Lactate [Moles/Vol] 1.0 mmol/L Normal 0.4-1.9 [facility] Comment on above: Performed By: #### L ACT ####[facility] Lbmhzrfzyv0857[address] [place], [place] [address]Dr. Meaganwendie Davie POINT OF CARE GLUCOSEon 04-12 Glucose [Mass/Vol] 109 mg/dL Critically high 74-106 [facility] Comment on above: Performed By: #### P OCGLUC ####[facility] Lsbaelnlnf0048[address] [place], [place] [address]Dr. Meaganwendie Broderick Glucose [Mass/Vol] 93 mg/dL Normal 74-106 [facility] Comment on above: Performed By: #### P OCGLUC ####[facility] Whbdlnspjt5140[address] [place], [place] [address]Dr. Meaganwendie Davie Glucose [Mass/Vol] 140 mg/dL Critically high 74-106 [facility] Comment on above: Performed By: #### P OCGLUC ####[facility] Pnnizsdbed9949 [place] [address]Dr. Slick Broderick Glucose [Mass/Vol] 95 mg/dL Normal 74-106 [facility] Comment on above: Performed By: #### P OCGLUC ####[facility] Jqlhigjzpz4384[address] [place], [place] [address]Dr. Slick Broderick PROF 14(COMP METB)on 022 Albumin [Mass/Vol] 2.9 g/dL Critically low 3.4-5.[address] [facility] Comment on above: Performed By: #### C MP ####[facility] Fjhzmqdwuf8582[address] [place], [place] [address]Dr. Slick Broderick Albumin/Globulin [Mass ratio] 0.9 {ratio} Normal [facility] Comment on above: Performed By: #### C MP ####[facility] Ulwuisxcxr9518[address] [place], [place] [address]Dr. Slick Broderick ALP [Catalytic activity/Vol] 87 U/L Normal 46-116 [facility] Comment on above: Performed By: #### C MP ####[facility] Giiqdoefhi411[address] [place], [place] [address]Dr. Slick Broderick ALT [Catalytic activity/Vol] 21 U/L Normal 14-59 [facility] Comment on above: Performed By: #### C MP ####[facility] Dyxedceirc7807[address] [place], [place] [address]Dr. Slick Broderick Anion gap [Moles/Vol] 7.7 mmol/L Normal [facility] Comment on above: Performed By: #### C MP ####[facility] Saviiuieuj064[address] [place], [place] [address]Dr. Slick Broderick AST [Catalytic activity/Vol] 11 U/L Critically low 15-37 [facility] Comment on above: Performed By: #### C MP ####[facility] Twzvyswosn8266[address] [place], [place] [address]Dr. Slick Broderick Bilirubin [Mass/Vol] 0.2 mg/dL Normal 0.2-1.0 [facility] Comment on above: Performed By: #### C MP ####[facility] Hjmocstyfn1419 [place] [address]Dr. Slick Davie Calcium [Mass/Vol] 9.4 mg/dL Normal 8.5-10.1 [facility] Comment on above: Performed By: #### C MP ####[facility] Aarilnoqxy9404[address] [place], [place] [address]Dr. Slick Broderick Chloride [Moles/Vol] 107 mmol/L Normal 98-107 [facility] Comment on above: Performed By: #### C MP ####[facility] Esvbmdqkes7117[address] [place], [place] [address]Dr. Meaganwendie Davie CO2 [Moles/Vol] 31.2 mmol/L Normal 21.0-32.0 [facility] Comment on above: Performed By: #### C MP ####[facility] Ppzskaqory9312[address] [place], [place] [address]Dr. Slick Broderick Creatinine [Mass/Vol] 2.06 mg/dL Critically high 0.55-1.02 [facility] Comment on above: Performed By: #### C MP ####[facility] Eczftdzolk467[address] [place], [place] [address]Dr. Meaganwendie Davie EGFR-AF [place] 29 mL/min/1.73m2 Critically low >=60 [facility] Comment on above: Performed By: #### C MP ####[facility] Mwrqddntsh9[address] [place], [place] [address]Dr. Slick Broderick EGFR-NON AF [place] 24 mL/min/1.73m2 Critically low >=60 [facility] Comment on above: Performed By: #### C MP ####[facility] Lshszioxtk360[address] [place], [place] [address]Dr. Slick Broderick Globulin (S) [Mass/Vol] 3.4 g/dL Normal [facility] Comment on above: Performed By: #### C MP ####[facility] Upmakgdmqx2040[address] [place], [place] [address]Dr. Slick Broderick Glucose [Mass/Vol] 93 mg/dL Normal 74-106 [facility] Comment on above: Performed By: #### C MP ####[facility] Lttvodhwzg4803 [place] [address]Dr. Slick Broderick Potassium [Moles/Vol] 4.9 mmol/L Normal 3.5-5.1 [facility] Comment on above: Performed By: #### C MP ####[facility] Hznoapptoh7973 [place] [address]Dr. Slick Broderick Protein [Mass/Vol] 6.3 g/dL Critically low 6.4-8.[address] [facility] Comment on above: Performed By: #### C MP ####[facility] Vjrdnykbef8756 [place] [address]Dr. Slick Broderick Sodium [Moles/Vol] 141 mmol/L Normal 136-145 [facility] Comment on above: Performed By: #### C MP ####[facility] Jhnzmfkcbs6938[address] [place], [place] [address]Dr. Slick Broderick Urea nitrogen [Mass/Vol] 63.0 mg/dL Critically high 7.0-18.0 [facility] Comment on above: Performed By: #### C MP ####[facility] Goekofutis[address] [place], [place] [address]Dr. Slick Broderick Urea nitrogen/Creatinine [Mass ratio] 30.6 mg/mg Normal [facility] Comment on above: Performed By: #### C MP ####[facility] Jwqriichlc1916 [place] [address]Dr. Slcik Broderick Albumin [Mass/Vol] 3.1 g/dL Critically low 3.4-5.0 [facility] Comment on above: Performed By: #### H STROPN, CRP, CMP ####[facility] Myjdntusgg0702 [place] [address]Dr. Slick Broderick Albumin/Globulin [Mass ratio] 0.9 {ratio} Normal [facility] Comment on above: Performed By: #### H STROPN, CRP, CMP ####[facility] Wzjvrbqmyl[address] [place] [address]Dr. Slick Broderick ALP [Catalytic activity/Vol] 98 U/L Normal 46-116 [facility] Comment on above: Performed By: #### H STROPN, CRP, CMP ####[facility] Hcgdkjprjy34[address] [place] [address]Dr. Slick Broderick ALT [Catalytic activity/Vol] 17 U/L Normal 14-59 [facility] Comment on above: Performed By: #### H STROPN, CRP, CMP ####[facility] Pkviykyerv4154 [place] [address]Dr. Slick Broderick Anion gap [Moles/Vol] 4.3 mmol/L Normal [facility] Comment on above: Performed By: #### H STROPN, CRP, CMP ####[facility] Dwbrqqlztu3246 [place] [address]Dr. Slick Broderick AST [Catalytic activity/Vol] 11 U/L Critically low 15-37 [facility] Comment on above: Performed By: #### H STROPN, CRP, CMP ####[facility] Aalfbvhaeq9088 [place] [address]Dr. Slick Broderick Bilirubin [Mass/Vol] 0.2 mg/dL Normal 0.2-1.0 [facility] Comment on above: Performed By: #### H STROPN, CRP, CMP ####[facility] Gzponklaxn036[address] [place] [address]Dr. Slick Broderick Calcium [Mass/Vol] 9.6 mg/dL Normal 8.5-10.1 [facility] Comment on above: Performed By: #### H STROPN, CRP, CMP ####[facility] Wswuobadsa7913 [place] [address]Dr. Slick Broderick Chloride [Moles/Vol] 104 mmol/L Normal 98-107 [facility] Comment on above: Performed By: #### H STROPN, CRP, CMP ####[facility] Josezjduqw8749 [place] [address]Dr. Slick Broderick CO2 [Moles/Vol] 32.3 mmol/L Critically high 21.0-32.0 [facility] Comment on above: Performed By: #### H STROPN, CRP, CMP ####[facility] Njyfrusdrr4[address] [place] [address]Dr. Slick Broderick Creatinine [Mass/Vol] 2.49 mg/dL Critically high 0.55-1.02 [facility] Comment on above: Performed By: #### H STROPN, CRP, CMP ####[facility] Rhgukjqilm97[address] [place] [address]Dr. Slick Broderick EGFR-AF [place] 23 mL/min/1.73m2 Critically low >=60 [facility] Comment on above: Performed By: #### H STROPN, CRP, CMP ####[facility] Wqhkcwffmn3268 [place] [address]Dr. Slick Broderick EGFR-NON AF [place] 19 mL/min/1.73m2 Critically low >=60 [facility] Comment on above: Performed By: #### H STROPN, CRP, CMP ####[facility] Tpgleesrlu[address] [place] [address]Dr. Slick Broderick Globulin (S) [Mass/Vol] 3.5 g/dL Normal [facility] Comment on above: Performed By: #### H STROPN, CRP, CMP ####[facility] [address]zkkusjwk[address] [place], [place] [address]Dr. Slick Broderick Glucose [Mass/Vol] 112 mg/dL Critically high 74-106 [facility] Comment on above: Performed By: #### H STROPN, CRP, CMP ####[facility] Qwwsmucjfl3587 [place] [address]Dr. Slick Broderick Potassium [Moles/Vol] 4.6 mmol/L Normal 3.5-5.1 [facility] Comment on above: Performed By: #### H STROPN, CRP, CMP ####[facility] Kmfixnffbb[address] [place], [place] [address]Dr. Slick Broderick Protein [Mass/Vol] 6.6 g/dL Normal 6.4-8.2 [facility] Comment on above: Performed By: #### H STROPN, CRP, CMP ####[facility] Zkbthazaql2567 [place] [address]Dr. Slick Broderick Sodium [Moles/Vol] 136 mmol/L Normal 136-145 [facility] Comment on above: Performed By: #### H STROPN, CRP, CMP ####[facility] Orsegjwyqo11[address] [place] [phone]. Slick Broderick Urea nitrogen [Mass/Vol] 74.0 mg/dL Critically high 7.0-18.0 [facility] Comment on above: Performed By: #### H STROPN, CRP, CMP ####[facility] Pkbkpejqjv5046 [place] [phone]. Slick Broderick Urea nitrogen/Creatinine [Mass ratio] 29.7 mg/mg Normal [facility] Comment on above: Performed By: #### H STROPN, CRP, CMP ####[facility] Sffbdziada0[address] [place] [address]Dr. Slick Broderick SED [facility]ATE [facility]on 2021 SED RATE 32 mm/hr Critically high <=30 [facility] Comment on above: Performed By: #### S EDR ####[facility] Suyfetwywq3[address] [place] [address]Dr. Slick Broderick TROPONIN, HIGH SENSITIVITYon 04-21-2022 HSTROP 8.6 pg/mL Normal 4.0-51.3 [facility] Comment on above: Result Comment: CUT- OFF POINTS HAVE BEEN ESTABLISHED BASED ON THE FOURTH UNIVERSAL DEFINITIONS OF MYOCARDIALINFARCTION. THE UPPER REFERENCE LIMIT (URL) OF TROPONIN, DEFINED THE 99TH PERCENTILE OFcTnI DISTRIBUTION IN A REFERENCE POPULATION, HAS BEEN CONFIRMED THE DECISION THRESHOLDFOR DC DIAGNOSIS. Performed By: #### H STROPN, CRP, CMP ####[facility] Jtqzfalpwe[address] [place] [address]Dr. Slick Broderick URINE MICROSCOPIC ONLYon BACTERIA TRACE Abnormal NONE SEEN [facility] Comment on above: Performed By: #### E AMBERLY PLEITEZRO ####[facility] Hvdntsqbjf7336 [place] [address]Dr. Slick Broderick Bacteria identified Cx Nom (U) INDICATED Normal [facility] Comment on above: Performed By: #### E BRITTNEYR, UMICRO ####[facility] Nirhzmrfhd[address] [place] [address]Dr. Slick Broderick CAST NONE SEEN Normal NONE SEEN [facility] Comment on above: Performed By: #### AMBERLY PEDRORO ####[facility] Imgxmfyctl7789 [place] [address]Dr. Meaganwendie Broderick Crystals LM Nom (Urine sed) NONE SEEN Normal NONE SEEN [facility] Comment on above: Performed By: #### AMBERLY PEDRORO ####[facility] Hcdgghekrq6890 [place] [address]Dr. Slick Broderick Epithelial cells LM Ql (Urine sed) FEW Abnormal NONE SEEN /RARE [facility] Comment on above: Performed By: #### AMBERLY PEDRORO ####[facility] Qzvvdyyale2741 [place] [address]Dr. Meaganwendie Broderick MUCOUS NONE SEEN Normal NONE SEEN [facility] Comment on above: Performed By: #### AMBERLY PEDRORO ####[facility] [address]qywfhc[address] [place], [place] [address]Dr. Slick Broderick RBC 0-2 Normal 0-2 [facility] Comment on above: Performed By: #### AMBERLY PEDRORO ####[facility] Cfoxdvsljc76[address] [place], [place] [address]Dr. Slick Broderick WBC 5-10 Abnormal NONE SEEN [facility] Comment on above: Performed By: #### AMBERLY PEDRORO ####[facility] Nmijngivrr6536 [place] [address]Dr. Slick rBoderick XR CHEST 1 Von 04-21-2022 XR CHEST 1 V Normal [facility] CBC AUTO DIFFon 03-29-2022 BASO # 0.1 103/ul Normal 0.0-0.1 [facility] Comment on above: Performed By: #### C BC ####[facility] [address]ybzbjxabo[address] [place], [place] [address]Dr. Slick Broderick Basophils/100 WBC (Bld) 0.7 % Normal 0.2-2.0 [facility] Comment on above: Performed By: #### C BC ####[facility] Ovostalbom0253 [place] [phone]. Slick Broderick EO # 0.4 103/ul Normal 0.0-0.7 [facility] Comment on above: Performed By: #### C BC ####[facility] Qhyiqzmmxp0603 [place] [phone]. Slick Broderick Eosinophils/100 WBC (Bld) 4.8 % Normal 0.9-7.0 [facility] Comment on above: Performed By: #### C BC ####[facility] Srbriwjqtl5520 [place] [phone]. Slick Broderick Erythrocyte distribution width (RBC) [Ratio] 13.9 % Normal 11.0-15.0 [facility] Comment on above: Performed By: #### C BC ####[facility] Ltxhliuadq[address] [place], [place] [address]Dr. Slick Broderick Hematocrit (Bld) [Volume fraction] 28.0 % Critically low 36.0-48.0 [facility] Comment on above: Performed By: #### C BC ####[facility] K[address]jtidbji17[address] [place], [place] [address]Dr. Slick Broderick Hemoglobin (Bld) [Mass/Vol] 8.8 g/dL Critically low 12.0-16.0 [facility] Comment on above: Performed By: #### C BC ####[facility] Rfedprpmoc2371 [place] [address]Dr. Slick Broderick IG # 0.05 10e3/ul Critically high 0.00-0.03 [facility] Comment on above: Performed By: #### C BC ####[facility] Hghivzvlrk0851 [place] [address]Dr. Meaganwendie Broderick IG % 0.7 % Critically high 0.0-0.5 [facility] Comment on above: Performed By: #### C BC ####[facility] Rvlwnjzgct[address] [place], [place] [address]Dr. Meaganwendie Broderick LYMPH # 1.0 103/ul Critically low 1.2-3.8 [facility] Comment on above: Performed By: #### C BC ####[facility] Vxedbwuivr3533 [place] [phone]. Slick Broderick Lymphocytes/100 WBC (Bld) 13.0 % Critically low 20.5-60.0 [facility] Comment on above: Performed By: #### C BC ####[facility] Cotuklpwwo3041 [place] [phone]. Slick Broderick MANUAL DIFF REQ NO Normal [facility] Comment on above: Performed By: #### C BC ####[facility] Duhzrxyffk8352 [place] [phone]. Slick Broderick MCH (RBC) [Entitic mass] 28.9 pg Normal 26.7-34.0 [facility] Comment on above: Performed By: #### C BC ####[facility] H[address]udaznbsk23[address] [place], [place] [address]Dr. Slick Broderick MCHC (RBC) [Mass/Vol] 31.4 g/dL Normal 29.9-35.2 [facility] Comment on above: Performed By: #### C BC ####[facility] Oicegrjsvj0621 [place] [phone]. Slick Broderick MCV (RBC) [Entitic vol] 92.1 fL Normal 81.0-99.0 [facility] Comment on above: Performed By: #### C BC ####[facility] Owdytsdrxz0747 [place] [address]Dr. Slick Broderick MONO # 0.8 103/ul Normal 0.3-0.8 [facility] Comment on above: Performed By: #### C BC ####[facility] Vjlgjnrufy2734 [place] [phone]. Slick Broderick Monocytes/100 WBC (Bld) 10.7 % Normal 1.7-12.0 [facility] Comment on above: Performed By: #### C BC ####[facility] Xfwnmqzpfz[address] [place], [place] [address]Dr. Slick Broderick NEUT # 5.4 103/ul Normal 1.4-6.5 [facility] Comment on above: Performed By: #### C BC ####[facility] Vasarqjcqc7534 [place] [address]Dr. Slick Broderick Neutrophils/100 WBC (Bld) 70.1 % Normal 43.0-75.0 [facility] Comment on above: Performed By: #### C BC ####[facility] Ovapkvcguv9251 [place] [address]Dr. Meaganwendie Davie Platelet mean volume (Bld) [Entitic vol] 8.9 fL Critically low 9.5-13.5 [facility] Comment on above: Performed By: #### C BC ####[facility] Otkagcyirf0391 [place] [address]Dr. Slick Davie PLT 221 103/ul Normal 150-450 [facility] Comment on above: Performed By: #### C BC ####[facility] Kasnqmrwuo4374 [place] [address]Dr. Slick Broderick RBC 3.04 106/ul Critically low 4.20-5.40 [facility] Comment on above: Performed By: #### C BC ####[facility] Kxxupniyvw[address] [place], [place] [address]Dr. Meaganwendie Broderick WBC 7.7 103/ul Normal 4.0-11.0 [facility] Comment on above: Performed By: #### C BC ####[facility] Hrnyqibfsn4[address] [place], [place] [address]Dr. Slick Davie PRBC LEUKOREDUCEDon 03-29-20 PRBC LEUKOREDUCED Cross Match Result Compatible Unit Blood Type O Pos Unit Number [id number] Status Information Transfused Product ID Red Blood Cells Product Code [id number] Normal [facility] Comment on above: Performed By: #### P RBC ####[facility] Nfzhtyhsrt2316 [place] [address]Dr. Meaganwendie Broderick PROF CHEM 8 (BAS METB)on Anion gap [Moles/Vol] 9.6 mmol/L Normal [facility] Comment on above: Performed By: #### B MP ####[facility] Junjoucrdj2720 [place] [phone]. Slick Broderick Calcium [Mass/Vol] 9.4 mg/dL Normal 8.5-10.1 [facility] Comment on above: Performed By: #### B MP ####[facility] Ympjhkbxpx9391 [place] [phone]. Slick Broderick Chloride [Moles/Vol] 101 mmol/L Normal 98-107 [facility] Comment on above: Performed By: #### B MP ####[facility] Cwmojjzrsp7651 [place] [phone]. Slick Broderick CO2 [Moles/Vol] 28.3 mmol/L Normal 21.0-32.0 [facility] Comment on above: Performed By: #### B MP ####[facility] Zmklrdaida0714[address] [place], [place] [address]Dr. Slick Broderick Creatinine [Mass/Vol] 1.56 mg/dL Critically high 0.55-1.02 [facility] Comment on above: Performed By: #### B MP ####[facility] Kkvyjinvnp7[address] [place], [place] [address]Dr. Slick Broderick EGFR-AF [place] 39 mL/min/1.73m2 Critically low >=60 [facility] Comment on above: Performed By: #### B MP ####[facility] Xscdpveiot53[address] [place], [place] [address]Dr. Slick Broderick EGFR-NON AF [place] 33 mL/min/1.73m2 Critically low >=60 [facility] Comment on above: Performed By: #### B MP ####[facility] Ykmborkito4208 [place] [address]Dr. Slick Broderick Glucose [Mass/Vol] 88 mg/dL Normal 74-106 [facility] Comment on above: Performed By: #### B MP ####[facility] Lkipnmtglf5[address] [place], [place] [address]Dr. Slick Broderick Potassium [Moles/Vol] 4.9 mmol/L Normal 3.5-5.1 [facility] Comment on above: Performed By: #### B MP ####[facility] Lwmagpcafu9804 [place] [phone]. Slick Broderick Sodium [Moles/Vol] 134 mmol/L Critically low 136-[address] [facility] Comment on above: Performed By: #### B MP ####[facility] Lagfzqogga8764[address] [place], [place] [address]Dr. Slick Broderick Urea nitrogen [Mass/Vol] 50.0 mg/dL Critically high 7.0-18.0 [facility] Comment on above: Performed By: #### B MP ####[facility] Zjdcphsxak9[address] [place], [place] [address]Dr. Slick Broderick Urea nitrogen/Creatinine [Mass ratio] 32.1 mg/mg Normal [facility] Comment on above: Performed By: #### B MP ####[facility] Xrisvujrtc6532[address] [place], [place] [address]Dr. Slick Davie CBC AUTO DIFFon 03-28-2022 BASO # 0.1 103/ul Normal 0.0-0.1 [facility] Comment on above: Performed By: #### C BC ####[facility] Ixcjdltjxt45[address] [place], [place] [address]Dr. Slick Davie Basophils/100 WBC (Bld) 0.7 % Normal 0.2-2.0 [facility] Comment on above: Performed By: #### C BC ####[facility] Mggqpcpxue8[address] [place], [place] [address]Dr. Slick Davie EO # 0.4 103/ul Normal 0.0-0.7 [facility] Comment on above: Performed By: #### C BC ####[facility] Tmtljstngd232[address] [place], [place] [address]Dr. Slick Davie Eosinophils/100 WBC (Bld) 5.5 % Normal 0.9-7.0 [facility] Comment on above: Performed By: #### C BC ####[facility] Bwqisynyfk[address] [place], [place] [address]Dr. Slick Broderick Erythrocyte distribution width (RBC) [Ratio] 13.6 % Normal 11.0-15.0 [facility] Comment on above: Performed By: #### C BC ####[facility] Vusjwjgebd0723 [place] [address]Dr. Slick Broderick Hematocrit (Bld) [Volume fraction] 27.9 % Critically low 36.0-48.0 [facility] Comment on above: Performed By: #### C BC ####[facility] Tvrwdfexqz9740 [place] [address]DrEmma Slick Davie Hemoglobin (Bld) [Mass/Vol] 9.0 g/dL Critically low 12.0-16.0 [facility] Comment on above: Performed By: #### C BC ####[facility] Hsxuxnhohv69[address] [place], [place] [address]Dr. Slick Broderick IG # 0.02 10e3/ul Normal 0.00-0.03 [facility] Comment on above: Performed By: #### C BC ####[facility] Yjkidtkral0099[address] [place], [place] [address]DrEmma Broderick IG % 0.3 % Normal 0.0-0.5 [facility] Comment on above: Performed By: #### C BC ####[facility] Clqzahnsqe6673 [place] [address]DrEmma Slick Davie LYMPH # 0.9 103/ul Critically low 1.2-3.8 [facility] [place] [facility] Comment on above: Performed By: #### C BC ####[facility] Ogrnzzpsah7188 [place] [address]DrEmma Broderick Lymphocytes/100 WBC (Bld) 13.0 % Critically low 20.5-60.0 [facility] Comment on above: Performed By: #### C BC ####[facility] Mepqzcqlrj3345 [place] [address]DrEmma Broderick MANUAL DIFF REQ NO Normal [facility] Comment on above: Performed By: #### C BC ####[facility] Fgiujrvamd4666 [place] [address]DrEmma Broderick MCH (RBC) [Entitic mass] 29.6 pg Normal 26.7-34.0 [facility] Comment on above: Performed By: #### C BC ####[facility] Chqicucyts2198 [place] [phone]. Slick Davie MCHC (RBC) [Mass/Vol] 32.3 g/dL Normal 29.9-35.2 [facility] Comment on above: Performed By: #### C BC ####[facility] Dbjfldzbkz6308 [place] [phone] Broderick MCV (RBC) [Entitic vol] 91.8 fL Normal 81.0-99.0 [facility] Comment on above: Performed By: #### C BC ####[facility] Thdfnqbmfl9912 [place] [address]DrEmma Broderick MONO # 0.7 103/ul Normal 0.3-0.8 [facility] Comment on above: Performed By: #### C BC ####[facility] Ogzelnprzn16[address] [place], [place] [address]DrEmma Broderick Monocytes/100 WBC (Bld) 11.1 % Normal 1.7-12.0 [facility] Comment on above: Performed By: #### C BC ####[facility] Dhpjeuefyd619[address] [place], [place] [address]Dr. Slick Broderick NEUT # 4.6 103/ul Normal 1.4-6.5 [facility] Comment on above: Performed By: #### C BC ####[facility] Rqlffaobvb7994 [place] [phone] Broderick Neutrophils/100 WBC (Bld) 69.4 % Normal 43.0-75.0 [facility] Comment on above: Performed By: #### C BC ####[facility] Zcksmkczhg6674 [place] [phone] Broderick Platelet mean volume (Bld) [Entitic vol] 8.9 fL Critically low 9.5-13.5 [facility] Comment on above: Performed By: #### C BC ####[facility] Vcgqrrhwjm7594 [place] [phone] Broderick PLT 216 103/ul Normal 150-450 [facility] Comment on above: Performed By: #### C BC ####[facility] Kkxayutqgn5514 [place] [phone]. Slick Broderick RBC 3.04 106/ul Critically low 4.20-5.40 [facility] Comment on above: Performed By: #### C BC ####[facility] Dhvyxehnqv7516 [place] [phone]. Slick Broderick WBC 6.7 103/ul Normal 4.0-11.0 [facility] Comment on above: Performed By: #### C BC ####[facility] Azxhhenzkv2638 [place] [phone]. Slick Broderick BASO # 0.0 103/ul Normal 0.0-0.1 [facility] Comment on above: Performed By: #### C BC ####[facility] Sjnrvgohak06[address] [place], [place] [address]Dr. Slick Broderick Basophils/100 WBC (Bld) 0.5 % Normal 0.2-2.0 [facility] Comment on above: Performed By: #### C BC ####[facility] Jjnihscwmu2035 [place] [phone]. Slick Broderick EO # 0.4 103/ul Normal 0.0-0.7 [facility] Comment on above: Performed By: #### C BC ####[facility] Yedodoqjrc2960 [place] [phone]. Slick Broderick Eosinophils/100 WBC (Bld) 5.3 % Normal 0.9-7.0 [facility] Comment on above: Performed By: #### C BC ####[facility] Vqkwyzucbb[address] [place], [place] [address]Dr. Meaganwendie Broderick Erythrocyte distribution width (RBC) [Ratio] 12.9 % Normal 11.0-15.0 [facility] Comment on above: Performed By: #### C BC ####[facility] Abqetnvxzf35[address] [place], [place] [address]Dr. Meaganwendie Broderick Hematocrit (Bld) [Volume fraction] 23.9 % Critically low 36.0-48.0 [facility] Comment on above: Performed By: #### C BC ####[facility] Ftiydcvxfl2306 [place] [phone]. Slick Broderick Hemoglobin (Bld) [Mass/Vol] 7.7 g/dL Critically low 12.0-16.0 [facility] Comment on above: Performed By: #### C BC ####[facility] Mtkxqrfofv9789 [place] [phone]. Slick Broderick IG # 0.04 10e3/ul Critically high 0.00-0.03 [facility] Comment on above: Performed By: #### C BC ####[facility] Znekjvvigc7177 [place] [address]Dr. Slick Broderick IG % 0.5 % Normal 0.0-0.5 [facility] Comment on above: Performed By: #### C BC ####[facility] Ftbszfased8553 [place] [address]Dr. Slick Broderick LYMPH # 0.9 103/ul Critically low 1.2-3.8 [facility] Comment on above: Performed By: #### C BC ####[facility] Uwtlmqvoet0933 [place] [address]Dr. Slick Davie Lymphocytes/100 WBC (Bld) 11.7 % Critically low 20.5-60.0 [facility] Comment on above: Performed By: #### C BC ####[facility] Aafrjikiyz1647 [place] [address]Dr. Slick Broderick MANUAL DIFF REQ NO Normal [facility] Comment on above: Performed By: #### C BC ####[facility] Brghurrsjx4127 [place] [phone]. Slick Broderick MCH (RBC) [Entitic mass] 30.1 pg Normal 26.7-34.0 [facility] Comment on above: Performed By: #### C BC ####[facility] Hmqyioqjca9277 [place] [phone]. Slick Broderick MCHC (RBC) [Mass/Vol] 32.2 g/dL Normal 29.9-35.2 [facility] Comment on above: Performed By: #### C BC ####[facility] Okxbjfafnv4935 [place] [phone]. Slick Broderick MCV (RBC) [Entitic vol] 93.4 fL Normal 81.0-99.0 [facility] Comment on above: Performed By: #### C BC ####[facility] Joveofognc1301 [place] [phone]. Slick Broderick MONO # 0.9 103/ul Critically high 0.3-0.8 [facility] Comment on above: Performed By: #### C BC ####[facility] Qchfrkjvhx7649 [place] [address]Dr. Slick Broderick Monocytes/100 WBC (Bld) 12.0 % Normal 1.7-12.0 [facility] Comment on above: Performed By: #### C BC ####[facility] K[address]mbnqhwez[address] [place], [place] [address]Dr. Slick Broderick NEUT # 5.4 103/ul Normal 1.4-6.5 [facility] Comment on above: Performed By: #### C BC ####[facility] Utvlwlhhdo7[address] [place], [place] [address]Dr. Slick Broderick Neutrophils/100 WBC (Bld) 70.0 % Normal 43.0-75.0 [facility] Comment on above: Performed By: #### C BC ####[facility] Obwygnivny4182 [place] [address]Dr. Slick Davie Platelet mean volume (Bld) [Entitic vol] 9.0 fL Critically low 9.5-13.5 [facility] Comment on above: Performed By: #### C BC ####[facility] Owxedwoqpu[address] [place], [place] [address]Dr. Slick Broderick PLT 210 103/ul Normal 150-450 [facility] Comment on above: Performed By: #### C BC ####[facility] Iscauzysrw3206 [place] [phone]. Slick Broderick RBC 2.56 106/ul Critically low 4.20-5.40 [facility] Comment on above: Performed By: #### C BC ####[facility] Uhwrgkkeik5272 [place], [place] [address]Nc. Slick Broderick WBC 7.7 103/ul Normal 4.0-11.0 [facility] Comment on above: Performed By: #### C BC ####[facility] Mzefofhhxe0320 [place], [place] [address]To. Slick Broderick CULTURE URINEon 03-28-2022 CULTURE URINE Culture Observations: NO GROWTH. Normal [facility] Comment on above: Performed By: #### U RCX ####[facility] Boealrqxtl6107 [place], [place] [address]Xn. Slick Broderick Covid-19 PCR (CVDTBH)on 03-12 SARS-CoV-2 (COVID-19) RNA DONNIE+probe Ql (Unsp spec) Not detected Normal NOT DETECTED [facility] Comment on above: Result Comment: When diagnostic [...] for this test is supported by the It Support Engineer of Health and Human Service's declaration that [...] be used). Performed By: #### C VDTBH ####[facility] Yzsynjipkr6000 [place], [place] [address]Wa. Slick Broderick IRONon 03-28-2022 Iron [Mass/Vol] 32.0 ug/dL Critically low 50.0-170.0 [facility] Comment on above: Performed By: #### I YUNIOR ####[facility] Hxxwxmomav5338 [place] [phone]. Meaganwendie Davie POINT OF CARE GLUCOSEon 03-12 Glucose [Mass/Vol] 119 mg/dL Critically high 74-106 [facility] Comment on above: Performed By: #### P OCGLUC ####[facility] Jlwxsyholy[address] [place] [address]Dr. Slick Broderick Glucose [Mass/Vol] 178 mg/dL Critically high 74-106 [facility] Comment on above: Performed By: #### P OCGLUC ####[facility] Qgmutfheht67[address] [place] [address]Dr. Slick Broderick Glucose [Mass/Vol] 106 mg/dL Normal 74-106 [facility] Comment on above: Performed By: #### P OCGLUC ####[facility] Lbahkshazp11[address] [place] [address]Dr. Slick Broderick PROF CHEM 8 (BAS METB)on Anion gap [Moles/Vol] 9.5 mmol/L Normal [facility] Comment on above: Performed By: #### B MP ####[facility] Urrmtujaym[address] [place], [place] [address]Dr. Slick Broderick Calcium [Mass/Vol] 9.5 mg/dL Normal 8.5-10.1 [facility] Comment on above: Performed By: #### B MP ####[facility] Qopmynpwhi[address] [place], [place] [address]Dr. Slick Broderick Chloride [Moles/Vol] 98 mmol/L Normal 98-107 [facility] Comment on above: Performed By: #### B MP ####[facility] Akbtwmvjnj036[address] [place], [place] [address]Dr. Slick Broderick CO2 [Moles/Vol] 28.5 mmol/L Normal 21.0-32.0 [facility] Comment on above: Performed By: #### B MP ####[facility] Bmbwlrjkab10[address] [place], [place] [address]Dr. Slick Broderick Creatinine [Mass/Vol] 1.90 mg/dL Critically high 0.55-1.02 [facility] Comment on above: Performed By: #### B MP ####[facility] Splygabiok[address] [place] [phone]. Slick Davie EGFR-AF [place] 31 mL/min/1.73m2 Critically low >=60 [facility] Comment on above: Performed By: #### B MP ####[facility] Kmevsuswhy0655 [place] [phone]. Meaganwendie Davie EGFR-NON AF [place] 26 mL/min/1.73m2 Critically low >=60 [facility] Comment on above: Performed By: #### B MP ####[facility] Mkgtkvqtxp3730 [place] [phone]. Slick Broderick Glucose [Mass/Vol] 102 mg/dL Normal 74-106 [facility] Comment on above: Performed By: #### B MP ####[facility] Hxkozrvwkq4453 [place] [phone]. Slick Broderick Potassium [Moles/Vol] 4.0 mmol/L Normal 3.5-5.1 [facility] Comment on above: Performed By: #### B MP ####[facility] Qfenidvjyu8424 [place] [phone]. Slick Broderick Sodium [Moles/Vol] 132 mmol/L Critically low 136-[address] [facility] Comment on above: Performed By: #### B MP ####[facility] Xhxioxgigg5718 [place] [phone]. Slick Broderick Urea nitrogen [Mass/Vol] 56.0 mg/dL Critically high 7.0-18.0 [facility] Comment on above: Performed By: #### B MP ####[facility] Cerjxwiecm7149 [place] [phone]. Slick Broderick Urea nitrogen/Creatinine [Mass ratio] 29.5 mg/mg Normal [facility] Comment on above: Performed By: #### B MP ####[facility] Uxvkjscwor3377 [place] [phone]. Slick Broderick T4on 03-28-2022 T4 [Mass/Vol] 4.90 ug/dL Normal 4.80-13.90 [facility] Comment on above: Performed By: #### T 4 ####[facility] Apchjzzbel[address] [place], [place] [address]Dr. Slick Broderick TSHon 03-28-2022 TSH 2.765 uIU/mL Normal 0.358-3.740 [facility] Comment on above: Performed By: #### T SH ####[facility] Xhzqocffaf25[address] [place], [place] [address]Dr. Slick Broderick TYPE AND SCREENon 03-28-2022 TYPE AND SCREEN Negative Normal [facility] Comment on above: Performed By: #### T NS ####[facility] Jxzzsqeljb264[address] [place], [place] [address]Dr. Slick Broderick UA RANDOM W/MICROSCOPICon BACTERIA NONE SEEN Normal NONE SEEN [facility] Comment on above: Performed By: #### U AMIC ####[facility] Algfrcbolu9766[address] [place], [place] [address]Dr. Slick Broderick Bilirubin Ql (U) Negative Normal NEGATIVE [facility] Comment on above: Performed By: #### U AMIC ####[facility] Wjxkwoowpk217[address] [place], [place] [address]Dr. Slick Broderick CAST NONE SEEN Normal NONE SEEN [facility] Comment on above: Performed By: #### U AMIC ####[facility] Iudkhbizeo2353[address] [place], [place] [address]Dr. Slick Broderick Clarity (U) CLEAR Normal CLEAR [facility] Comment on above: Performed By: #### U AMIC ####[facility] Dmnjtsxvcz0225[address] [place], [place] [address]Dr. Slick Broderick Color (U) LT. YELLOW Normal YELLOW [facility] Comment on above: Performed By: #### U AMIC ####[facility] Xnquinmcnu9976[address] [place], [place] [address]Dr. Slick Broderick Crystals LM Nom (Urine sed) NONE SEEN Normal NONE SEEN [facility] Comment on above: Performed By: #### U AMIC ####[facility] Wwectccttz706[address] [place], [place] [id number]. Slick Broderick Epithelial cells LM Ql (Urine sed) FEW Abnormal NONE SEEN /RARE [facility] Comment on above: Performed By: #### U AMIC ####[facility] Vzenjtcfxz4929[address] [place], [place] [address]Dr. Slick Broderick Glucose Ql (U) Negative Normal NEGATIVE [facility] Comment on above: Performed By: #### U AMIC ####[facility] Nrtehofsvh179[address] [place], [place] [address]Dr. Slick Broderick Hemoglobin Ql (U) MODERATE Abnormal NEGATIVE [facility] Comment on above: Performed By: #### U AMIC ####[facility] Fkuqxizcgz9959[address] [place], [place] [address]Dr. Slick Broderick Ketones Ql (U) Negative Normal NEGATIVE [facility] Comment on above: Performed By: #### U AMIC ####[facility] Kilndkmgat3757[address] [place], [place] [address]Dr. Slick Broderick LEUKOCYTES TRACE Abnormal NEGATIVE [facility] Comment on above: Performed By: #### U AMIC ####[facility] Cwxmjhyrmx6223[address] [place], [place] [address]Dr. Slick Broderick MUCOUS NONE SEEN Normal NONE SEEN [facility] Comment on above: Performed By: #### U AMIC ####[facility] Uiabdewjxv025[address] [place], [place] [address]Dr. Slick Broderick Nitrite Ql (U) Negative Normal NEGATIVE [facility] Comment on above: Performed By: #### U AMIC ####[facility] Qqvcbuxqjs0483[address] [place], [place] [address]Dr. Slick Broderick pH (U) 6.0 [pH] Normal 5-9 [facility] Comment on above: Performed By: #### U AMIC ####[facility] Qyaghoryyi3787[address] [place], [place] [address]Dr. Slick Broderick RBC 5-10 Abnormal 0-2 [facility] Comment on above: Performed By: #### U AMIC ####[facility] Zsdvkymsxj6186[address] [place], [place] [address]Dr. Slick Broderick SPEC GRAVITY <=1.005 Abnormal 1.005-<=1.0 25 [facility] Comment on above: Performed By: #### U AMIC ####[facility] Qbpjzunfvn348[address] [place], [place] [address]Dr. Slick Broderick UA PROTEIN Negative Normal NEGATIVE/ TRACE [facility] Comment on above: Performed By: #### U AMIC ####[facility] Sztbfwmxpb020[address] [place], [place] [address]Dr. Slick Broderick Urobilinogen Qn (U) 0.2 {Hiren'U}/dL Normal 0.2 - 1. 0 [facility] Comment on above: Performed By: #### U AMIC ####[facility] Fvojffhfzu2112[address] [place], [place] [address]Dr. Slick Broderick WBC 2-5 Abnormal NONE SEEN [facility] Comment on above: Performed By: #### U AMIC ####[facility] Lhtusluteg0478[address] [place], [place] [address]Dr. Slick Broderick CBC AUTO DIFFon 03-27-2022 BASO # 0.0 103/ul Normal 0.0-0.1 [facility] Comment on above: Performed By: #### C BC ####[facility] Hghmptimhr8089[address] [place], [place] [address]Dr. Slick Broderick Basophils/100 WBC (Bld) 0.5 % Normal 0.2-2.0 [facility] Comment on above: Performed By: #### C BC ####[facility] Fbvgzwbdll6528[address] [place], [place] [address]Dr. Slick Broderick EO # 0.4 103/ul Normal 0.0-0.7 [facility] Comment on above: Performed By: #### C BC ####[facility] Sndykwaqin595[address] [place], [place] [address]Dr. Slick Broderick Eosinophils/100 WBC (Bld) 5.2 % Normal 0.9-7.0 [facility] Comment on above: Performed By: #### C BC ####[facility] Anwerksyzb2955[address] [place], [place] [address]Dr. Slick Broderick Erythrocyte distribution width (RBC) [Ratio] 13.1 % Normal 11.0-15.0 [facility] Comment on above: Performed By: #### C BC ####[facility] Lymmtuksuy3[address] [place] [address]Dr. Meaganwendie Broderick Hematocrit (Bld) [Volume fraction] 24.7 % Critically low 36.0-48.0 [facility] Comment on above: Performed By: #### C BC ####[facility] Otwodxwvnu568[address] [place], [place] [address]Dr. Slick Broderick Hemoglobin (Bld) [Mass/Vol] 7.9 g/dL Critically low 12.0-16.0 [facility] Comment on above: Performed By: #### C BC ####[facility] Gkrjrdhpsz4455[address] [place], [place] [address]Dr. Slick Broderick IG # 0.06 10e3/ul Critically high 0.00-0.03 [facility] Comment on above: Performed By: #### C BC ####[facility] Jrarpseeze472180 [address] [place], [place] [address]Dr. Slick Broderick IG % 0.8 % Critically high 0.0-0.5 [facility] Comment on above: Performed By: #### C BC ####[facility] Hemqxykavc505[address] [place], [place] [address]Dr. Slick Broderick LYMPH # 0.9 103/ul Critically low 1.2-3.8 [facility] Comment on above: Performed By: #### C BC ####[facility] Hizzxgcycu7620[address] [place], [place] [address]Dr. Slick Broderick Lymphocytes/100 WBC (Bld) 11.1 % Critically low 20.5-60.0 [facility] Comment on above: Performed By: #### C BC ####[facility] Mbmnkcvqnd9108[address] [place], [place] [address]DrEmma Broderick MANUAL DIFF REQ NO Normal [facility] Comment on above: Performed By: #### C BC ####[facility] Vgdslxqouy463[address] [place], [place] [address]Dr. Slick Broderick MCH (RBC) [Entitic mass] 29.7 pg Normal 26.7-34.0 [facility] Comment on above: Performed By: #### C BC ####[facility] Jwybmzrefg07[address] [place] [address]Dr. Slick Broderick MCHC (RBC) [Mass/Vol] 32.0 g/dL Normal 29.9-35.2 [facility] Comment on above: Performed By: #### C BC ####[facility] Bajxgygsnt385[address] [place], [place] [address]Dr. Slick Davie MCV (RBC) [Entitic vol] 92.9 fL Normal 81.0-99.0 [facility] Comment on above: Performed By: #### C BC ####[facility] Wpyfvgqsfm360[address] [place], [place] [address]Dr. Meaganwendie Daive MONO # 0.8 103/ul Normal 0.3-0.8 [facility] Comment on above: Performed By: #### C BC ####[facility] Yqkicgzggf3586[address] [place], [place] [address]Dr. Meaganwendie Broderick Monocytes/100 WBC (Bld) 9.5 % Normal 1.7-12.0 [facility] Comment on above: Performed By: #### C BC ####[facility] Nkuvuluxfg4670[address] [place], [place] [address]Dr. Slick Broderick NEUT # 5.8 103/ul Normal 1.4-6.5 [facility] Comment on above: Performed By: #### C BC ####[facility] Pgxxnyunrd3890[address] [place], [place] [address]Dr. Slick Broderick Neutrophils/100 WBC (Bld) 72.9 % Normal 43.0-75.0 [facility] Comment on above: Performed By: #### C BC ####[facility] Rgbxeqkiuk6513[address] [place], [place] [address]Dr. Meaganwendie Davie Platelet mean volume (Bld) [Entitic vol] 8.9 fL Critically low 9.5-13.5 [facility] Comment on above: Performed By: #### C BC ####[facility] Dvvzeaekcs16[address] [place] [phone]. Slick Broderick PLT 220 103/ul Normal 150-450 [facility] Comment on above: Performed By: #### C BC ####[facility] Rwlmudwjzy1190 [place] [phone]. Slick Broderick RBC 2.66 106/ul Critically low 4.20-5.40 [facility] Comment on above: Performed By: #### C BC ####[facility] Nutrjrkyxu6582 [place] [phone]. Slick Broderick WBC 7.9 103/ul Normal 4.0-11.0 [facility] Comment on above: Performed By: #### C BC ####[facility] Oifcshfqlw2[address] [place] [address]Dr. Slick Davie OCC BLD IMMUNO SCREENon 03-12 OCCULT BLOOD Positive Abnormal NEGATIVE [facility] Comment on above: Performed By: #### O BSCRN ####[facility] Bznqywtxep7264[address] [place], [place] [address]Dr. Meaganwendie Broderick PROF 14(COMP METB)on 022 Albumin [Mass/Vol] 3.2 g/dL Critically low 3.4-5.0 [facility] Comment on above: Performed By: #### C MP ####[facility] Pajqmstyyu85[address] [place] [address]Dr. Meaganwendie Broderick Albumin/Globulin [Mass ratio] 0.9 {ratio} Normal [facility] Comment on above: Performed By: #### C MP ####[facility] Crukfzlikw3877 [place] [phone]. Slick Davie ALP [Catalytic activity/Vol] 101 U/L Normal 46-116 [facility] Comment on above: Performed By: #### C MP ####[facility] Bztgexyanc9994 [place] [address]Dr. Slick Broderick ALT [Catalytic activity/Vol] 28 U/L Normal 14-59 [facility] Comment on above: Performed By: #### C MP ####[facility] Zrejtchhhy9949 [place] [address]Dr. Slick Broderick Anion gap [Moles/Vol] 11.5 mmol/L Normal [facility] Comment on above: Performed By: #### C MP ####[facility] Egbpzbimdu1237 [place] [address]Dr. Slick Broderick AST [Catalytic activity/Vol] 21 U/L Normal 15-37 [facility] Comment on above: Performed By: #### C MP ####[facility] Kpxlbzriob9079[address] [place], [place] [address]Dr. Slick Davie Bilirubin [Mass/Vol] 0.2 mg/dL Normal 0.2-1.0 [facility] Comment on above: Performed By: #### C MP ####[facility] Aegcjoptzu004[address] [place], [place] [address]Dr. Slick Broderick Calcium [Mass/Vol] 9.3 mg/dL Normal 8.5-10.1 [facility] Comment on above: Performed By: #### C MP ####[facility] Sobaeigibt2098[address] [place], [place] [address]Dr. Slick Broderick Chloride [Moles/Vol] 93 mmol/L Critically low 98-107 [facility] Comment on above: Performed By: #### C MP ####[facility] Yitrqvffru3497[address] [place], [place] [address]Dr. Slick Broderick CO2 [Moles/Vol] 27.3 mmol/L Normal 21.0-32.0 [facility] Comment on above: Performed By: #### C MP ####[facility] Mwyrrbvqin6455[address] [place], [place] [address]Dr. Slick Broderick Creatinine [Mass/Vol] 1.98 mg/dL Critically high 0.55-1.02 [facility] Comment on above: Performed By: #### C MP ####[facility] Vngnxjylkl2104[address] [place], [place] [address]Dr. Slick Broderick EGFR-AF [place] 30 mL/min/1.73m2 Critically low >=60 [facility] Comment on above: Performed By: #### C MP ####[facility] Fnpvmcbgvx9369[address] [place], [place] [address]Dr. Slick Davie EGFR-NON AF [place] 25 mL/min/1.73m2 Critically low >=60 [facility] Comment on above: Performed By: #### C MP ####[facility] Lmargxgugs5878[address] [place], [place] [address]Dr. Slick Broderick Globulin (S) [Mass/Vol] 3.6 g/dL Normal [facility] Comment on above: Performed By: #### C MP ####[facility] Arzjkzeqbh1864[address] [place], [place] [address]Dr. Meaganwendie Davie Glucose [Mass/Vol] 123 mg/dL Critically high 74-106 [facility] Comment on above: Performed By: #### C MP ####[facility] Ocftiwvbam6360[address] [place], [place] [address]Dr. Slick Broderick Potassium [Moles/Vol] 3.8 mmol/L Normal 3.5-5.1 [facility] Comment on above: Performed By: #### C MP ####[facility] Jutvkzvfsm5606[address] [place], [place] [address]Dr. Slick Davie Protein [Mass/Vol] 6.8 g/dL Normal 6.4-8.2 [facility] Comment on above: Performed By: #### C MP ####[facility] Kgndnraoek6793[address] [place], [place] [address]Dr. Slick Broderick Sodium [Moles/Vol] 128 mmol/L Critically low 136-145 [facility] Comment on above: Performed By: #### C MP ####[facility] Ujyksydccj1762[address] [place], [place] [address]Dr. Slick Broderick Urea nitrogen [Mass/Vol] 64.0 mg/dL Critically high 7.0-18.0 [facility] Comment on above: Performed By: #### C MP ####[facility] Vhczsimvxz569[address] [place], [place] [address]Dr. Slick Broderick Urea nitrogen/Creatinine [Mass ratio] 32.3 mg/mg Normal [facility] Comment on above: Performed By: #### C MP ####[facility] Ltzucjlbwr1955[address] [place], [place] [address]Dr. Slick Broderick TROPONIN, HIGH SENSITIVITYon 03-27-2022 HSTROP 9.0 pg/mL Normal 4.0-51.3 [facility] Comment on above: Result Comment: CUT- OFF POINTS HAVE BEEN ESTABLISHED BASED ON THE FOURTH UNIVERSAL DEFINITIONS OF MYOCARDIALINFARCTION. THE UPPER REFERENCE LIMIT (URL) OF TROPONIN, DEFINED THE 99TH PERCENTILE OFcTnI DISTRIBUTION IN A REFERENCE POPULATION, HAS BEEN CONFIRMED THE DECISION THRESHOLDFOR DC DIAGNOSIS. Performed By: #### H STROPN ####[facility] Obsfemqwvp0261 [place], [place] [address]Uq. Slick Broderick Progress Noteson 03-24-2022 Software Release Manager Authentication Interface Message Text 1:32 AM EMERGENCY TRIAGE, TREAT AND TRANSPORT (ET3) DOCUMENTATION OF TELEHEALTH VISIT Date / Time: 03/24/2022 / 1:32 AM Name: Linda Nascimento : 1950 SSN: [id number] EMS Agency: [facility] [] Verbal consent obtained [x] [...] Free Thyroxine Index 2.3 Normal 1.2-4.9 [facility] Comment on above: Performed By: #### T HYLC ####[facility] Pfmsotlydi4[address] [place] [phone]. Slick Broderick T3 Uptake 31 % Normal 24-39 [facility] Comment on above: Performed By: #### T HYLC ####[facility] Kkaeryvsml9444 [place] [phone] Meaganwendie Broderick T4 [Mass/Vol] 7.4 ug/dL Normal 4.5-12.0 [facility] Comment on above: Performed By: #### T HYLC ####[facility] Imqmrtykvq8623 [place] [phone]. Slick Broderick VIT D 25-OH LABCORPon 2021 Vitamin D, 25-Hydroxy 58.7 ng/mL Normal 30.0-100.0 [facility] Comment on above: Result Comment: Karla min D deficiency has been defined by the [place] of[employer] and an Endocrine Society practice guideline as alevel of serum 25-OH vitamin D less than 20 ng/mL (1,2).The Endocrine Society went on to further define vitamin Dinsufficiency as a level between 21 and 29 ng/mL (2).1. IOM ([place] [employer]). 2010. Dietary reference intakes for calcium and D. [place]: The National Academies Press.2. Maryam MF, [place], Jacklyn-Jasen SCHAEFER, et al. Evaluation, treatment, and prevention of vitamin D deficiency: an Endocrine Society clinical practice guideline. JCEM. 2010; 96(7):1911-30. Performed By: #### V ITADLC ####[facility] Aaovbzxnsd5[address] [place] [phone] Meaganwendie Broderick CBC AUTO DIFFon 02-11-2022 BASO # 0.0 103/ul Normal 0.0-0.1 [facility] Comment on above: Performed By: #### C BC ####[facility] Jgarbuswbk15[address] [place] [address]Dr. Slick Broderick Basophils/100 WBC (Bld) 0.6 % Normal 0.2-2.0 [facility] Comment on above: Performed By: #### C BC ####[facility] Fhchbfqsha027[address] [place], [place] [address]Dr. Slick Broderick EO # 0.3 103/ul Normal 0.0-0.7 [facility] Comment on above: Performed By: #### C BC ####[facility] Dplnuqhlzd4817[address] [place], [place] [address]Dr. Slick Broderick Eosinophils/100 WBC (Bld) 4.6 % Normal 0.9-7.0 [facility] Comment on above: Performed By: #### C BC ####[facility] Jalpcyjpku2772[address] [place], [place] [address]Dr. Slick Broderick Erythrocyte distribution width (RBC) [Ratio] 14.0 % Normal 11.0-15.0 [facility] Comment on above: Performed By: #### C BC ####[facility] Ogfprgurps2286[address] [place], [place] [address]Dr. Slick Broderick Hematocrit (Bld) [Volume fraction] 28.4 % Critically low 36.0-48.0 [facility] Comment on above: Performed By: #### C BC ####[facility] Wnwpxqfkhf1349[address] [place], [place] [address]Dr. Slick Broderick Hemoglobin (Bld) [Mass/Vol] 9.3 g/dL Critically low 12.0-16.0 [facility] Comment on above: Performed By: #### C BC ####[facility] Jovrrthcin7728[address] [place], [place] [address]Dr. Slick Broderick IG # 0.03 10e3/ul Normal 0.00-0.03 [facility] Comment on above: Performed By: #### C BC ####[facility] Szcajhoxmz675[address] [place], [place] [address]DrEmma Broderick IG % 0.5 % Normal 0.0-0.5 [facility] Comment on above: Performed By: #### C BC ####[facility] Nvrrakfboj4846 [place] [address]DrEmma Broderick LYMPH # 0.6 103/ul Critically low 1.2-3.8 [facility] [place] [facility] Comment on above: Performed By: #### C BC ####[facility] Darwiwmmqy9168 [place] [address]DrEmma Broderick Lymphocytes/100 WBC (Bld) 9.5 % Critically low 20.5-60.0 [facility] Comment on above: Performed By: #### C BC ####[facility] Unklwiodve2853 [place] [address]DrEmma Broderick MANUAL DIFF REQ NO Normal [facility] Comment on above: Performed By: #### C BC ####[facility] Keaqpdqflp7647 [place] [address]DrEmma Broderick MCH (RBC) [Entitic mass] 30.5 pg Normal 26.7-34.0 [facility] Comment on above: Performed By: #### C BC ####[facility] Mgiukrdmcp34[address] [place], [place] [address]DrEmma Broderick MCHC (RBC) [Mass/Vol] 32.7 g/dL Normal 29.9-35.2 [facility] Comment on above: Performed By: #### C BC ####[facility] Rvyshtundg040[address] [place], [place] [address]DrEmma Broderick MCV (RBC) [Entitic vol] 93.1 fL Normal 81.0-99.0 [facility] Comment on above: Performed By: #### C BC ####[facility] Cnhphfaqre5468 [place] [address]DrEmma Broderick MONO # 0.6 103/ul Normal 0.3-0.8 [facility] Comment on above: Performed By: #### C BC ####[facility] Hjdlmewhcx1854[address] [place], [place] [address]DrEmma Broderick Monocytes/100 WBC (Bld) 8.4 % Normal 1.7-12.0 [facility] Comment on above: Performed By: #### C BC ####[facility] Neiysrmmes0637 [place] [address]Dr. Slick Broderick NEUT # 5.0 103/ul Normal 1.4-6.5 [facility] Comment on above: Performed By: #### C BC ####[facility] Tyeknyxfyc1851 [place] [address]Dr. Slick Broderick Neutrophils/100 WBC (Bld) 76.4 % Critically high 43.0-75.0 [facility] Comment on above: Performed By: #### C BC ####[facility] Hypftrqgas7725[address] [place], [place] [address]Dr. Slick Broderick Platelet mean volume (Bld) [Entitic vol] 9.3 fL Critically low 9.5-13.5 [facility] Comment on above: Performed By: #### C BC ####[facility] Eimkzmzibp95[address] [place], [place] [address]Dr. Slick Broderick PLT 192 103/ul Normal 150-450 [facility] Comment on above: Performed By: #### C BC ####[facility] Wdykiiufkc5[address] [place], [place] [address]Dr. Slick Broderick RBC 3.05 106/ul Critically low 4.20-5.40 [facility] Comment on above: Performed By: #### C BC ####[facility] Wfifvtesfa[address] [place], [place] [address]Dr. Slick Broderick WBC 6.6 103/ul Normal 4.0-11.0 [facility] Comment on above: Performed By: #### C BC ####[facility] Fwuopmuscy[address] [place], [place] [address]Dr. Slick Broderick IRONon 02-11-2022 Iron [Mass/Vol] 62.0 ug/dL Normal 50.0-170.0 [facility] Comment on above: Performed By: #### I YUNIOR ####[facility] Slwhnxkama3[address] [place], [place] [address]Dr. Slick Broderick LIPID PROFILEon 02-11-2022 CHOL-HDL RATIO NORM SEE BELOW Normal [facility] Comment on above: Result Comment: 3.3 - 4.4 LOW RISK 4.4 - 7.1 AVERAGE RISK 7.1 - 11.0 MODERATE RISK >11.0 HIGH RISK Performed By: #### C MP, LIPID, TSH ####[facility] Ofrbxhlfdw6595 [place], [place] [address]Ol. Slick Broderick Cholesterol [Mass/Vol] 204 mg/dL Critically high <=200 [facility] Comment on above: Performed By: #### C MP, LIPID, TSH ####[facility] Mecsffmqir6614 [place] [phone]. Slick Broderick Cholesterol in HDL [Mass/Vol] 53 mg/dL Normal 40-60 [facility] Comment on above: Performed By: #### C MP, LIPID, TSH ####[facility] Jozjgbrtlo4111 [place] [phone]. Meaganwendie Davie Cholesterol in LDL [Mass/Vol] 134.0 mg/dL Normal [facility] Comment on above: Performed By: #### C MP, LIPID, TSH ####[facility] Qfjexhvurs1113 [place] [phone]. Slick Broderick Cholesterol.total/Corinne sterol in HDL [Mass ratio] 3.8 {ratio} Normal [facility] Comment on above: Performed By: #### C MP, LIPID, TSH ####[facility] Refrudkrme7402 [place] [phone]. Slick Broderick HDL NORMAL > or = 60 mg/dl - LOW CARDIOVASCULAR RISK <40 mg/dl - HIGH CARDIOVASCULAR RISK Normal [facility] Comment on above: Performed By: #### C MP, LIPID, TSH ####[facility] Eklisxycag1050 [place] [phone]. Meaganlan Broderick LDL CALC NORMAL SEE BELOW Normal [facility] Comment on above: Result Comment: <100 mg/dl OPTIMAL 100 - 129 mg/dl NEAR OR ABOVE OPTIMAL 130 - 159 mg/dl BORDERLINE HIGH 160 - 189 mg/dl HIGH >190 mg/dl VERY HIGH Performed By: #### C MP, LIPID, TSH ####[facility] Sicdbsesrz9702 [place] [phone]. Slick Broderick Triglyceride [Mass/Vol] 85 mg/dL Normal <=150 [facility] Comment on above: Performed By: #### C MP, LIPID, TSH ####[facility] Gmvcrjqguf6470 [place] [address]Dr. Slick Broderick VLDL CALC 17.0 mg/dL Normal [facility] Comment on above: Performed By: #### C MP, LIPID, TSH ####[facility] Ixokuavusn7441 [place] [address]Dr. Slick Broderick PROF 14(COMP METB)on 022 Albumin [Mass/Vol] 3.5 g/dL Normal 3.4-5.0 [facility] Comment on above: Performed By: #### C MP, LIPID, TSH ####[facility] Prundgwxdi9497 [place] [address]Dr. Slick Broderick Albumin/Globulin [Mass ratio] 0.9 {ratio} Normal [facility] Comment on above: Performed By: #### C MP, LIPID, TSH ####[facility] Meoraidgal6459 [place] [address]Dr. Slick Broderick ALP [Catalytic activity/Vol] 93 U/L Normal 46-116 [facility] Comment on above: Performed By: #### C MP, LIPID, TSH ####[facility] Umtjebvhxh8158 [place] [address]Dr. Slick Broderick ALT [Catalytic activity/Vol] 21 U/L Normal 14-59 [facility] Comment on above: Performed By: #### C MP, LIPID, TSH ####[facility] Ipocqedfxj4797 [place] [address]Dr. Slick Broderick Anion gap [Moles/Vol] 13.7 mmol/L Normal [facility] Comment on above: Performed By: #### C MP, LIPID, TSH ####[facility] Ecfwxrhsdx8711 [place] [address]Dr. Slick Broderick AST [Catalytic activity/Vol] 13 U/L Critically low 15-37 [facility] Comment on above: Performed By: #### C MP, LIPID, TSH ####[facility] Ixhndhgybd1298 [place] [address]Dr. Slick Broderick Bilirubin [Mass/Vol] 0.4 mg/dL Normal 0.2-1.0 [facility] Comment on above: Performed By: #### C MP, LIPID, TSH ####[facility] Zksarxruiw6222 [place] [address]Dr. Slick Broderick Calcium [Mass/Vol] 9.2 mg/dL Normal 8.5-10.1 [facility] Comment on above: Performed By: #### C MP, LIPID, TSH ####[facility] Uulwtchgxw4391 [place] [address]Dr. Slick Broderick Chloride [Moles/Vol] 96 mmol/L Critically low 98-107 [facility] Comment on above: Performed By: #### C MP, LIPID, TSH ####[facility] Chmqdmzhpx17[address] [place], [place] [address]Dr. Slick Broderick CO2 [Moles/Vol] 27.8 mmol/L Normal 21.0-32.0 [facility] [place] [facility] Comment on above: Performed By: #### C MP, LIPID, TSH ####[facility] Ekabdpzzoe0591 [place] [address]Dr. Slick Broderick Creatinine [Mass/Vol] 1.52 mg/dL Critically high 0.55-1.02 [facility] Comment on above: Performed By: #### C MP, LIPID, TSH ####[facility] Lsxbjxqysj0176 [place] [address]Dr. Slick Broderick EGFR-AF [place] 41 mL/min/1.73m2 Critically low >=60 [facility] Comment on above: Performed By: #### C MP, LIPID, TSH ####[facility] Cydbixdxvy1591 [place] [address]Dr. Slick Broderick EGFR-NON AF [place] 34 mL/min/1.73m2 Critically low >=60 [facility] Comment on above: Performed By: #### C MP, LIPID, TSH ####[facility] Eozpfaoeyf6156 [place] [phone]. Slick Broderick Globulin (S) [Mass/Vol] 3.7 g/dL Normal T [facility] Comment on above: Performed By: #### C MP, LIPID, TSH ####[facility] Oyimqsxuiw3501 [place] [address]Dr. Slick Broderick Glucose [Mass/Vol] 96 mg/dL Normal 74-106 [facility] Comment on above: Performed By: #### C MP, LIPID, TSH ####[facility] Dwdgzfqnhu8200 [place] [address]Dr. Slick Broderick Potassium [Moles/Vol] 4.5 mmol/L Normal 3.5-5.1 [facility] Comment on above: Performed By: #### C MP, LIPID, TSH ####[facility] Yykenlcsoa5253 [place] [address]Dr. Slick Broderick Protein [Mass/Vol] 7.2 g/dL Normal 6.4-8.2 [facility] Comment on above: Performed By: #### C MP, LIPID, TSH ####[facility] Jqpssksmbi32[address] [place], [place] [address]Dr. Slick Broderick Sodium [Moles/Vol] 133 mmol/L Critically low 136-[address] [facility] Comment on above: Performed By: #### C MP, LIPID, TSH ####[facility] Aebewhdvoc6042[address] [place], [place] [address]Dr. Slick Broderick Urea nitrogen [Mass/Vol] 37.0 mg/dL Critically high 7.0-18.0 [facility] Comment on above: Performed By: #### C MP, LIPID, TSH ####[facility] Tckjjnjlcy1221 [place] [address]Dr. Slick Broderick Urea nitrogen/Creatinine [Mass ratio] 24.3 mg/mg Normal [facility] Comment on above: Performed By: #### C MP, LIPID, TSH ####[facility] Rzsyxhqhzt[address] [place], [place] [address]Dr. Meaganlan Broderick TSHon 02-11-2022 TSH 3.993 uIU/mL Critically high 0.358-3.740 [facility] Comment on above: Performed By: #### C MP, LIPID, TSH ####[facility] Bnaynrzmrp5119 [place] [address]Dr. Slick Broderick PRBC LEUKOREDUCEDon 12-18-19 PRBC LEUKOREDUCED Normal [facility] Comment on above: Performed By: #### P RBC ####[facility] Uzllgqmfpp8851 [place] [address]Dr. Slick Broderick PRBC LEUKOREDUCED Cross Match Result Compatible Unit Blood Type O Pos Unit Number [id number] Status Information Transfused Product ID Red Blood Cells Product Code [id number] Normal [facility] Comment on above: Performed By: #### P RBC ####[facility] Efoduomlqq3780 [place] [address]Dr. Slick Broderick H PYLORI ANTIBODY IGGon H. PYLORI IGG ABS 0.18 Index Value Normal 0.00-0.79 [facility] Comment on above: Result Comment: Nega tive <0.80 Equivocal 0.80 - 0.89 Positive >0.89 Performed By: #### H PYLLC ####[facility] Hhepwhiedq26[address] [place], [place] [address]Dr. Slick Broderick BNPon 12-14-2021 Natriuretic peptide B (Bld) [Mass/Vol] 846.0 pg/mL Normal <=900.0 [facility] Comment on above: Performed By: #### C MP, BNP ####[facility] Hcfrwnabsh5158 [place] [address]Dr. Slick Broderick CBC AUTO DIFFon 12-14-2021 BASO # 0.1 103/ul Normal 0.0-0.1 [facility] Comment on above: Performed By: #### C BC ####[facility] Ctaoaotvni7043 [place] [address]Dr. Slick Broderick Basophils/100 WBC (Bld) 0.7 % Normal 0.2-2.0 [facility] Comment on above: Performed By: #### C BC ####[facility] Bkezvozcgy1505 [place] [phone]. Slick Broderick EO # 0.3 103/ul Normal 0.0-0.7 [facility] Comment on above: Performed By: #### C BC ####[facility] Hpefrlhtoe9351 [place] [phone]. Slick Broderick Eosinophils/100 WBC (Bld) 4.6 % Normal 0.9-7.0 [facility] Comment on above: Performed By: #### C BC ####[facility] Whbreukxbu8528 [place] [phone]. Slick Broderick Erythrocyte distribution width (RBC) [Ratio] 20.0 % Critically high 11.0-15.0 [facility] Comment on above: Performed By: #### C BC ####[facility] Qqcokfkkep02[address] [place], [place] [address]Dr. Slick Broderick Hematocrit (Bld) [Volume fraction] 29.1 % Critically low 36.0-48.0 [facility] Comment on above: Performed By: #### C BC ####[facility] Viupaoynis3667 [place] [phone]. Slick Broderick Hemoglobin (Bld) [Mass/Vol] 9.1 g/dL Critically low 12.0-16.0 [facility] Comment on above: Performed By: #### C BC ####[facility] Lxdrxsigwb9214 [place] [phone]. Slick Broderick IG # 0.06 10e3/ul Critically high 0.00-0.03 [facility] Comment on above: Performed By: #### C BC ####[facility] Vygimlqnzi6209 [place] [phone]. Slick Broderick IG % 0.9 % Critically high 0.0-0.5 [facility] Comment on above: Performed By: #### C BC ####[facility] Jfgdnmdnot[address] [place], [place] [address]Dr. Slick Broderick LYMPH # 0.8 103/ul Critically low 1.2-3.8 [facility] Comment on above: Performed By: #### C BC ####[facility] Auwcxskuiq4308 [place] [phone]. Slick Broderick Lymphocytes/100 WBC (Bld) 11.2 % Critically low 20.5-60.0 [facility] Comment on above: Performed By: #### C BC ####[facility] Zklldwhuvi7692 [place] [phone]. Slick Broderick MANUAL DIFF REQ NO Normal [facility] Comment on above: Performed By: #### C BC ####[facility] Igbafrdlxx0802 [place] [phone]. Slick Davie MCH (RBC) [Entitic mass] 30.5 pg Normal 26.7-34.0 [facility] Comment on above: Performed By: #### C BC ####[facility] Qrrepymeex5914[address] [place], [place] [address]Dr. Slick Davie MCHC (RBC) [Mass/Vol] 31.3 g/dL Normal 29.9-35.2 [facility] Comment on above: Performed By: #### C BC ####[facility] Buzkzqmgxc5264 [place] [address]Dr. Meaganwendie Broderick MCV (RBC) [Entitic vol] 97.7 fL Normal 81.0-99.0 [facility] Comment on above: Performed By: #### C BC ####[facility] Adjpjeqkwc4[address] [place], [place] [address]Dr. Meaganwendie Davie MONO # 0.7 103/ul Normal 0.3-0.8 [facility] Comment on above: Performed By: #### C BC ####[facility] Sxohhxzngu44[address] [place], [place] [address]Dr. Meaganwendie Broderick Monocytes/100 WBC (Bld) 9.7 % Normal 1.7-12.0 [facility] Comment on above: Performed By: #### C BC ####[facility] Yvlvxjljsb58[address] [place], [place] [address]Dr. Slick Broderick NEUT # 4.9 103/ul Normal 1.4-6.5 [facility] Comment on above: Performed By: #### C BC ####[facility] Alwfkzcjwr4281 [place] [phone]. Slick Broderick Neutrophils/100 WBC (Bld) 72.9 % Normal 43.0-75.0 [facility] Comment on above: Performed By: #### C BC ####[facility] Pvxxomsfzz2293 [place] [phone]. Slick Broderick Platelet mean volume (Bld) [Entitic vol] 8.9 fL Critically low 9.5-13.5 [facility] Comment on above: Performed By: #### C BC ####[facility] Zctpxwhpjj6530 [place] [address]Dr. Slick Broderick PLT 239 103/ul Normal 150-450 [facility] Comment on above: Performed By: #### C BC ####[facility] Fffptjsjgi0840 [place] [address]Dr. Slick Broderick RBC 2.98 106/ul Critically low 4.20-5.40 [facility] Comment on above: Performed By: #### C BC ####[facility] Nxghdzrznm3515 [place] [phone]. Slick Broderick WBC 6.8 103/ul Normal 4.0-11.0 [facility] Comment on above: Performed By: #### C BC ####[facility] Epfzjplabe3633 [place] [address]Dr. Slick Broderick BASO # 0.1 103/ul Normal 0.0-0.1 [facility] Comment on above: Performed By: #### C BC ####[facility] Teqlnabvbp9466 [place] [phone]. Slick Broderick Basophils/100 WBC (Bld) 0.9 % Normal 0.2-2.0 [facility] Comment on above: Performed By: #### C BC ####[facility] Drcaykljbf0784 [place] [phone]. Slick Broderick EO # 0.3 103/ul Normal 0.0-0.7 [facility] Comment on above: Performed By: #### C BC ####[facility] Ixlrsjnfmt5777 [place] [phone]. Slick Broderick Eosinophils/100 WBC (Bld) 4.9 % Normal 0.9-7.0 [facility] Comment on above: Performed By: #### C BC ####[facility] Ytsocbnzyu6402 [place] [phone]. Slick Broderick Erythrocyte distribution width (RBC) [Ratio] 20.3 % Critically high 11.0-15.0 [facility] Comment on above: Performed By: #### C BC ####[facility] Iplnwvobgj9060 [place] [address]Dr. Slick Broderick Hematocrit (Bld) [Volume fraction] 27.6 % Critically low 36.0-48.0 [facility] Comment on above: Performed By: #### C BC ####[facility] Nxjqrpdgds9[address] [place], [place] [address]Dr. Slick Broderick Hemoglobin (Bld) [Mass/Vol] 8.7 g/dL Critically low 12.0-16.0 [facility] Comment on above: Performed By: #### C BC ####[facility] Wnrdxzijsl6417[address] [place], [place] [address]Dr. Slick Broderick IG # 0.05 10e3/ul Critically high 0.00-0.03 [facility] Comment on above: Performed By: #### C BC ####[facility] Wfphrkwvsm7[address] [place], [place] [address]Dr. Slick Broderick IG % 0.7 % Critically high 0.0-0.5 [facility] Comment on above: Performed By: #### C BC ####[facility] Jbqlskdroy7398[address] [place], [place] [address]Dr. Slick Broderick LYMPH # 0.9 103/ul Critically low 1.2-3.8 [facility] Comment on above: Performed By: #### C BC ####[facility] Ryyqhlkfrs165[address] [place], [place] [address]Dr. Slick Broderick Lymphocytes/100 WBC (Bld) 13.1 % Critically low 20.5-60.0 [facility] Comment on above: Performed By: #### C BC ####[facility] Ywhhmnanri1754 [place] [phone]. Silck Broderick MANUAL DIFF REQ NO Normal [facility] Comment on above: Performed By: #### C BC ####[facility] Pniuunasdj4061 [place] [phone]. Slick Broderick MCH (RBC) [Entitic mass] 31.0 pg Normal 26.7-34.0 [facility] Comment on above: Performed By: #### C BC ####[facility] Kxcdgecqds6893 [place] [phone]. Slick Broderick MCHC (RBC) [Mass/Vol] 31.5 g/dL Normal 29.9-35.2 [facility] Comment on above: Performed By: #### C BC ####[facility] Dqvscjefwi5689 [place] [address]Dr. Slick Broderick MCV (RBC) [Entitic vol] 98.2 fL Normal 81.0-99.0 [facility] Comment on above: Performed By: #### C BC ####[facility] Rcfrcouxee[address] [place], [place] [address]Dr. Slick Broderick MONO # 0.8 103/ul Normal 0.3-0.8 [facility] Comment on above: Performed By: #### C BC ####[facility] Bhrxyuswjw[address] [place], [place] [address]Dr. Slick Broderick Monocytes/100 WBC (Bld) 11.4 % Normal 1.7-12.0 [facility] Comment on above: Performed By: #### C BC ####[facility] Hzujotppit0018 [place] [phone]. Slick Broderick NEUT # 4.8 103/ul Normal 1.4-6.5 [facility] Comment on above: Performed By: #### C BC ####[facility] Zljikwhass9162 [place] [phone]. Slick Broderick Neutrophils/100 WBC (Bld) 69.0 % Normal 43.0-75.0 [facility] Comment on above: Performed By: #### C BC ####[facility] Qhwrnbwnpy5502 [place] [address]Dr. Slick Broderick Platelet mean volume (Bld) [Entitic vol] 9.3 fL Critically low 9.5-13.5 [facility] Comment on above: Performed By: #### C BC ####[facility] Exidjtwfwv8269 [place] [address]Dr. Slick Broderick PLT 229 103/ul Normal 150-450 [facility] Comment on above: Performed By: #### C BC ####[facility] Nfbkixqndz5182 [place] [address]Dr. Slick Broderick RBC 2.81 106/ul Critically low 4.20-5.40 [facility] Comment on above: Performed By: #### C BC ####[facility] Jwvnpsjced7341 [place] [address]Dr. Slick Broderick WBC 7.0 103/ul Normal 4.0-11.0 [facility] Comment on above: Performed By: #### C BC ####[facility] Hziwqvorfy2051 [place] [address]DrEmma Broderick POINT OF CARE GLUCOSEon Glucose [Mass/Vol] 255 mg/dL Critically high 74-106 [facility] Comment on above: Performed By: #### P OCGLUC ####[facility] Vffhskhkdj2421 [place] [address]DrEmma Broderick PROF 14(COMP METB)on 022 Albumin [Mass/Vol] 2.3 g/dL Critically low 3.4-5.0 [facility] Comment on above: Performed By: #### C MP, BNP ####[facility] Irpjgksurj8358 [place] [address]DrEmma Broderick Albumin/Globulin [Mass ratio] 0.6 {ratio} Normal [facility] Comment on above: Performed By: #### C MP, BNP ####[facility] Genrlrachh8876 [place] [address]DrEmma Broderick ALP [Catalytic activity/Vol] 94 U/L Normal 46-116 [facility] Comment on above: Performed By: #### C MP, BNP ####[facility] Vzrojzynzv[address] [place], [place] [address]Dr. Meaganwendie Davie ALT [Catalytic activity/Vol] 17 U/L Normal 14-59 [facility] Comment on above: Performed By: #### C MP, BNP ####[facility] Zwwrcouzrx7907[address] [place], [place] [address]Dr. Slick Broderick Anion gap [Moles/Vol] 11.6 mmol/L Normal [facility] Comment on above: Performed By: #### C MP, BNP ####[facility] Rhpxaromtq1958[address] [place], [place] [address]Dr. Slick Broderick AST [Catalytic activity/Vol] 13 U/L Critically low 15-37 [facility] Comment on above: Performed By: #### C MP, BNP ####[facility] Eoklyuueru452[address] [place], [place] [address]Dr. Slick Broderick Bilirubin [Mass/Vol] 0.3 mg/dL Normal 0.2-1.0 [facility] Comment on above: Performed By: #### C MP, BNP ####[facility] Ziefctroza665[address] [place], [place] [address]Dr. Slick Broderick Calcium [Mass/Vol] 7.9 mg/dL Critically low 8.5-10.1 [facility] Comment on above: Performed By: #### C MP, BNP ####[facility] Nkxnraugfe6325[address] [place], [place] [address]Dr. Slick Broderick Chloride [Moles/Vol] 104 mmol/L Normal 98-107 [facility] Comment on above: Performed By: #### C MP, BNP ####[facility] Yewhbwrhyh95[address] [place], [place] [address]Dr. Slick Broderick CO2 [Moles/Vol] 25.1 mmol/L Normal 21.0-32.0 [facility] Comment on above: Performed By: #### C MP, BNP ####[facility] Szwplbqsxu6135[address] [place], [place] [address]Dr. Slick Broderick Creatinine [Mass/Vol] 1.64 mg/dL Critically high 0.55-1.02 [facility] Comment on above: Performed By: #### C MP, BNP ####[facility] Fxulvuwpbi1779 [place] [address]Dr. Slick Broderick EGFR-AF [place] 37 mL/min/1.73m2 Critically low >=60 [facility] Comment on above: Performed By: #### C MP, BNP ####[facility] Jpfbnklxuo9370 [place] [address]Dr. Slick Broderick EGFR-NON AF [place] 31 mL/min/1.73m2 Critically low >=60 [facility] Comment on above: Performed By: #### C MP, BNP ####[facility] Sypxrajrhb1256 [place] [address]Dr. Slick Broderick Globulin (S) [Mass/Vol] 3.6 g/dL Normal [facility] Comment on above: Performed By: #### C MP, BNP ####[facility] Hqmbkgtgwh6474 [place] [address]Dr. Slick Broderick Glucose [Mass/Vol] 100 mg/dL Normal 74-106 [facility] Comment on above: Performed By: #### C MP, BNP ####[facility] Djfnqwdcqf2724 [place] [address]Dr. Slick Broderick Potassium [Moles/Vol] 4.7 mmol/L Normal 3.5-5.1 [facility] Comment on above: Performed By: #### C MP, BNP ####[facility] Tcwgpgwgfm0397 [place] [address]Dr. Slick Broderick Protein [Mass/Vol] 5.9 g/dL Critically low 6.4-8.2 [facility] Comment on above: Performed By: #### C MP, BNP ####[facility] Aaqzpchqli6517 [place] [address]Dr. Slick Broderick Sodium [Moles/Vol] 136 mmol/L Normal 136-145 [facility] Comment on above: Performed By: #### C MP, BNP ####[facility] Tkuaxnyfai2889 [place] [phone]. Meaganwendie Broderick Urea nitrogen [Mass/Vol] 27.0 mg/dL Critically high 7.0-18.0 [facility] Comment on above: Performed By: #### C MP, BNP ####[facility] [address]vqealkzv14[address] [place], [place] [address]Dr. Slick Broderick Urea nitrogen/Creatinine [Mass ratio] 16.5 mg/mg Normal [facility] Comment on above: Performed By: #### C MP, BNP ####[facility] Qdrpssfgyv9[address] [place], [place] [address]Dr. Slick Broderick CBC AUTO DIFFon 12-13-2021 BASO # 0.0 103/ul Normal 0.0-0.1 [facility] Comment on above: Performed By: #### C BC ####[facility] Rhxlyvmtey01[address] [place], [place] [address]Dr. Slick Broderick Basophils/100 WBC (Bld) 0.5 % Normal 0.2-2.0 [facility] Comment on above: Performed By: #### C BC ####[facility] Kstaykskvz0106[address] [place], [place] [address]Dr. Slick Broderick EO # 0.3 103/ul Normal 0.0-0.7 [facility] Comment on above: Performed By: #### C BC ####[facility] Rldkwkkvkq6104[address] [place], [place] [address]Dr. Slick Broderick Eosinophils/100 WBC (Bld) 4.4 % Normal 0.9-7.0 [facility] Comment on above: Performed By: #### C BC ####[facility] Ahzdmbmxgi722[address] [place], [place] [address]Dr. Slick Broderick Erythrocyte distribution width (RBC) [Ratio] 20.5 % Critically high 11.0-15.0 [facility] Comment on above: Performed By: #### C BC ####[facility] Frboiushwf23[address] [place], [place] [address]Dr. Slick Broderick Hematocrit (Bld) [Volume fraction] 29.5 % Critically low 36.0-48.0 [facility] Comment on above: Performed By: #### C BC ####[facility] Jqwijjfhlr0395 [place] [phone]. Slick Broderick Hemoglobin (Bld) [Mass/Vol] 9.3 g/dL Critically low 12.0-16.0 [facility] Comment on above: Result Comment: post transfusion Performed By: #### C BC ####[facility] Tararopbkp0162 [place] [address]DrEmma Slick Broderick IG # 0.07 10e3/ul Critically high 0.00-0.03 [facility] Comment on above: Performed By: #### C BC ####[facility] Iajojrkfis1901 [place] [address]DrEmma Slick Davie IG % 0.9 % Critically high 0.0-0.5 [facility] Comment on above: Performed By: #### C BC ####[facility] Rtmmmziboh[address] [place] [address]DrEmma Slick Davie LYMPH # 0.9 103/ul Critically low 1.2-3.8 [facility] Comment on above: Performed By: #### C BC ####[facility] Ocngolrpli80[address] [place] [address]DrEmma Slick Davie Lymphocytes/100 WBC (Bld) 11.5 % Critically low 20.5-60.0 [facility] Comment on above: Performed By: #### C BC ####[facility] Foxuhetgum16[address] [place] [address]DrEmma Meaganwendie Broderick MANUAL DIFF REQ NO Normal [facility] Comment on above: Performed By: #### C BC ####[facility] Weqtelupie[address] [place] [phone]. Slick Davie MCH (RBC) [Entitic mass] 30.9 pg Normal 26.7-34.0 [facility] Comment on above: Performed By: #### C BC ####[facility] Ioomsxjrdi6[address] [place] [address]Dr. Slick Davie MCHC (RBC) [Mass/Vol] 31.5 g/dL Normal 29.9-35.2 [facility] Comment on above: Performed By: #### C BC ####[facility] Tollpbcqzz5[address] [place] [phone] Slick Broderick MCV (RBC) [Entitic vol] 98.0 fL Normal 81.0-99.0 [facility] Comment on above: Performed By: #### C BC ####[facility] Fkvpdvrwlk2519 [place] [phone] Slick Davie MONO # 0.6 103/ul Normal 0.3-0.8 [facility] Comment on above: Performed By: #### C BC ####[facility] Puskwktxkx15[address] [place] [address]Dr. Meaganwendie Broderick Monocytes/100 WBC (Bld) 8.6 % Normal 1.7-12.0 [facility] Comment on above: Performed By: #### C BC ####[facility] Uqmoaurmhh[address] [place], [place] [address]Dr. Slick Broderick NEUT # 5.5 103/ul Normal 1.4-6.5 [facility] Comment on above: Performed By: #### C BC ####[facility] Lhsbrvbhaz[address] [place], [place] [address]Dr. Meaganwendie Broderick Neutrophils/100 WBC (Bld) 74.1 % Normal 43.0-75.0 [facility] Comment on above: Performed By: #### C BC ####[facility] Kdwcuaylqg12[address] [place] [address]Dr. Meaganwendie Davie Platelet mean volume (Bld) [Entitic vol] 9.0 fL Critically low 9.5-13.5 [facility] Comment on above: Performed By: #### C BC ####[facility] Rvettuhdex2245 [place] [phone]. Slick Broderick PLT 231 103/ul Normal 150-450 [facility] Comment on above: Performed By: #### C BC ####[facility] Fcydniiazw6252 [place] [phone] Broderick RBC 3.01 106/ul Critically low 4.20-5.40 [facility] Comment on above: Performed By: #### C BC ####[facility] Oywqgiwdtx5340 [place] [phone]. Slick Broderick WBC 7.5 103/ul Normal 4.0-11.0 [facility] Comment on above: Performed By: #### C BC ####[facility] Qibmvkgiux6633 [place] [phone]. Slick Broderick BASO # 0.0 103/ul Normal 0.0-0.1 [facility] Comment on above: Performed By: #### C BC ####[facility] Awzdvygblu2235 [place] [phone]. Slick Broderick Basophils/100 WBC (Bld) 0.3 % Normal 0.2-2.0 [facility] Comment on above: Performed By: #### C BC ####[facility] Sijggcljil[address] [place], [place] [address]Dr. Slick Broderick EO # 0.3 103/ul Normal 0.0-0.7 [facility] Comment on above: Performed By: #### C BC ####[facility] Semvtitzhq5195 [place] [phone]. Slick Broderick Eosinophils/100 WBC (Bld) 3.8 % Normal 0.9-7.0 [facility] Comment on above: Performed By: #### C BC ####[facility] Jgoaxhjrej2862 [place] [phone]. Slick Broderick Erythrocyte distribution width (RBC) [Ratio] 17.4 % Critically high 11.0-15.0 [facility] Comment on above: Performed By: #### C BC ####[facility] Qdjuakezjw5947 [place] [phone]. Slick Broderick Hematocrit (Bld) [Volume fraction] 22.4 % Critically low 36.0-48.0 [facility] Comment on above: Result Comment: Test Repeated Critical Value Verified Performed By: #### C BC ####[facility] Kalsorrdsd15[address] [place] [address]Dr. Slick Broderick Hemoglobin (Bld) [Mass/Vol] 7.1 g/dL Critically low 12.0-16.0 [facility] Comment on above: Performed By: #### C BC ####[facility] Wwnkphment5084 [place] [address]DrEmma Broderick IG # 0.06 10e3/ul Critically high 0.00-0.03 [facility] Comment on above: Performed By: #### C BC ####[facility] Msskrfufpf5442 [place] [address]DrEmma Broderick IG % 0.8 % Critically high 0.0-0.5 [facility] Comment on above: Performed By: #### C BC ####[facility] Fevyusqybu33[address] [place], [place] [address]DrEmma Broderick LYMPH # 0.8 103/ul Critically low 1.2-3.8 [facility] Comment on above: Performed By: #### C BC ####[facility] Dzsrtqdxmd88[address] [place], [place] [address]DrEmma Broderick Lymphocytes/100 WBC (Bld) 10.7 % Critically low 20.5-60.0 [facility] Comment on above: Performed By: #### C BC ####[facility] Lrxxnrttmm7[address] [place], [place] [address]DrEmma Meaganwendie Broderick MANUAL DIFF REQ NO Normal [facility] Comment on above: Performed By: #### C BC ####[facility] Mlqbycqjta2040[address] [place], [place] [address]DrEmma Broderick MCH (RBC) [Entitic mass] 32.3 pg Normal 26.7-34.0 [facility] Comment on above: Performed By: #### C BC ####[facility] Mmntyxwiug8385[address] [place], [place] [address]DrEmma Broderick MCHC (RBC) [Mass/Vol] 31.7 g/dL Normal 29.9-35.2 [facility] Comment on above: Performed By: #### C BC ####[facility] Bkvlxiihsi47[address] [place], [place] [address]DrEmma Broderick MCV (RBC) [Entitic vol] 101.8 fL Critically high 81.0-99 .0 [facility] Comment on above: Performed By: #### C BC ####[facility] Zsnanpxvje1406[address] [place], [place] [address]DrEmma Slick Broderick MONO # 0.8 103/ul Normal 0.3-0.8 [facility] Comment on above: Performed By: #### C BC ####[facility] Zklkcesuvr9487[address] [place], [place] [address]Dr. Slick Broderick Monocytes/100 WBC (Bld) 10.7 % Normal 1.7-12.0 [facility] Comment on above: Performed By: #### C BC ####[facility] Dbajanuxvv3889[address] [place], [place] [address]Dr. Slick Broderick NEUT # 5.6 103/ul Normal 1.4-6.5 [facility] Comment on above: Performed By: #### C BC ####[facility] Jzqtszlisx0045[address] [place], [place] [address]Dr. Silck Broderick Neutrophils/100 WBC (Bld) 73.7 % Normal 43.0-75.0 [facility] Comment on above: Performed By: #### C BC ####[facility] Uewktsrcrw3250[address] [place], [place] [address]DrEmma Slick Broderick Platelet mean volume (Bld) [Entitic vol] 9.4 fL Critically low 9.5-13.5 [facility] Comment on above: Performed By: #### C BC ####[facility] Crshztfmdl65[address] [place], [place] [address]Dr. Slick Davie PLT 209 103/ul Normal 150-450 [facility] Comment on above: Performed By: #### C BC ####[facility] Nkwwijeivy9429[address] [place], [place] [address]Dr. Meaganwendie Davie RBC 2.20 106/ul Critically low 4.20-5.40 [facility] Comment on above: Performed By: #### C BC ####[facility] Rgrhhpuogf4617[address] [place], [place] [address]Dr. Meaganwendie Davie WBC 7.6 103/ul Normal 4.0-11.0 [facility] Comment on above: Performed By: #### C BC ####[facility] Xryfvwbuqc3583[address] [place], [place] [address]Dr. Slick Broderick PROF 14(COMP METB)on 022 Albumin [Mass/Vol] 2.1 g/dL Critically low 3.4-5.0 [facility] Comment on above: Performed By: #### C MP ####[facility] Cixgavqwmy0726[address] [place], [place] [address]Dr. Slick Broderick Albumin/Globulin [Mass ratio] 0.7 {ratio} Normal [facility] Comment on above: Performed By: #### C MP ####[facility] Rgrzqmhsuy4784[address] [place], [place] [address]Dr. Slick Broderick ALP [Catalytic activity/Vol] 83 U/L Normal 46-116 [facility] Comment on above: Performed By: #### C MP ####[facility] Ehraimprur1517[address] [place], [place] [address]Dr. Slick Broderick ALT [Catalytic activity/Vol] 12 U/L Critically low 14-59 [facility] Comment on above: Performed By: #### C MP ####[facility] Ownnifqdrw7034[address] [place], [place] [address]Dr. Slick Broderick Anion gap [Moles/Vol] 14.0 mmol/L Normal [facility] Comment on above: Performed By: #### C MP ####[facility] Fphnftuhlu7234[address] [place], [place] [address]Dr. Slick Broderick AST [Catalytic activity/Vol] 13 U/L Critically low 15-37 [facility] Comment on above: Performed By: #### C MP ####[facility] Zasrlyvafl1999[address] [place], [place] [address]Dr. Slick Broderick Bilirubin [Mass/Vol] 0.3 mg/dL Normal 0.2-1.0 [facility] Comment on above: Performed By: #### C MP ####[facility] Hknqyslkbo350[address] [place], [place] [address]Dr. Slick Broderick Calcium [Mass/Vol] 7.4 mg/dL Critically low 8.5-10.1 [facility] e [facility] Comment on above: Performed By: #### C MP ####[facility] Amdxnyrbpb1166[address] [place], [place] [address]Dr. Slick Broderick Chloride [Moles/Vol] 105 mmol/L Normal 98-107 [facility] Comment on above: Performed By: #### C MP ####[facility] Fexruztgfa2925[address] [place], [place] [address]Dr. Slick Broderick CO2 [Moles/Vol] 23.0 mmol/L Normal 21.0-32.0 [facility] Comment on above: Performed By: #### C MP ####[facility] Dhdnyehhld8015[address] [place], [place] [address]Dr. Slick Broderick Creatinine [Mass/Vol] 1.80 mg/dL Critically high 0.55-1.02 [facility] Comment on above: Performed By: #### C MP ####[facility] Svvzcnjycv912[address] [place], [place] [address]Dr. Slick Broderick EGFR-AF [place] 33 mL/min/1.73m2 Critically low >=60 [facility] Comment on above: Performed By: #### C MP ####[facility] Pekvkbjraf6160[address] [place], [place] [address]Dr. Slick Broderick EGFR-NON AF [place] 28 mL/min/1.73m2 Critically low >=60 [facility] Comment on above: Performed By: #### C MP ####[facility] Dkaftynvkb9144[address] [place], [place] [address]Dr. Slick Broderick Globulin (S) [Mass/Vol] 3.2 g/dL Normal [facility] Comment on above: Performed By: #### C MP ####[facility] Qqewjatdaa0174[address] [place], [place] [address]Dr. Slick Broderick Glucose [Mass/Vol] 85 mg/dL Normal 74-106 [facility] Comment on above: Performed By: #### C MP ####[facility] Gemtitfazg0745[address] [place], [place] [address]Dr. Slick Broderick Potassium [Moles/Vol] 5.0 mmol/L Normal 3.5-5.1 [facility] Comment on above: Performed By: #### C MP ####[facility] Plvfqsirny92[address] [place], [place] [address]Dr. Slick Broderick Protein [Mass/Vol] 5.3 g/dL Critically low 6.4-8.2 Th e [facility] Comment on above: Performed By: #### C MP ####[facility] Siphlijnjz360[address] [place], [place] [address]Dr. Slick Broderick Sodium [Moles/Vol] 137 mmol/L Normal 136-145 [facility] Comment on above: Performed By: #### C MP ####[facility] Rlwtbllqfb6517[address] [place], [place] [address]Dr. Slick Broderick Urea nitrogen [Mass/Vol] 30.0 mg/dL Critically high 7.0-18.0 [facility] Comment on above: Performed By: #### C MP ####[facility] Avoqpgllsf5332[address] [place], [place] [address]Dr. Slick Broderick Urea nitrogen/Creatinine [Mass ratio] 16.7 mg/mg Normal [facility] Comment on above: Performed By: #### C MP ####[facility] Hyzewbflhy6685[address] [place], [place] [address]Dr. Slick Broderick ABO RH RETYPEon 12-12-2021 ABO and Rh group Nom (Bld) DONE Normal [facility] Comment on above: Performed By: #### R ETYPE ####[facility] Miyrfyusgz6224[address] [place], [place] [address]Dr. Slick Broderick BNPon 12-12-2021 Natriuretic peptide B (Bld) [Mass/Vol] 952.0 pg/mL Critically high <=900.0 [facility] Comment on above: Performed By: #### B ICT HELP DESK TECHNICIAN, CRP, CMP ####[facility] Lfihujkdes0638[address] [place], [place] [address]Dr. Slick Broderick CBC AUTO DIFFon 12-12-2021 BASO # 0.0 103/ul Normal 0.0-0.1 [facility] Comment on above: Performed By: #### C BC ####[facility] Hjrbtlkkny78[address] [place] [phone]. Slick Broderick Basophils/100 WBC (Bld) 0.2 % Normal 0.2-2.0 [facility] Comment on above: Performed By: #### C BC ####[facility] Tvnaprwgsu2313 [place] [phone]. Slick Broderick EO # 0.2 103/ul Normal 0.0-0.7 [facility] Comment on above: Performed By: #### C BC ####[facility] Xivxvwgzrl1893 [place] [address]Dr. Slick Broderick Eosinophils/100 WBC (Bld) 2.6 % Normal 0.9-7.0 [facility] Comment on above: Performed By: #### C BC ####[facility] Tmpxjdotdf227[address] [place], [place] [address]Dr. Slick Broderick Erythrocyte distribution width (RBC) [Ratio] 17.2 % Critically high 11.0-15.0 [facility] Comment on above: Performed By: #### C BC ####[facility] Ycapcbxfuh8297[address] [place], [place] [address]Dr. Slick Broderick Hematocrit (Bld) [Volume fraction] 24.0 % Critically low 36.0-48.0 [facility] Comment on above: Performed By: #### C BC ####[facility] Oeauxnwdyg2640[address] [place], [place] [address]Dr. Slick Broderick Hemoglobin (Bld) [Mass/Vol] 7.7 g/dL Critically low 12.0-16.0 [facility] Comment on above: Performed By: #### C BC ####[facility] Okptkqtjsg794[address] [place], [place] [address]Dr. lSick Broderick IG # 0.05 10e3/ul Critically high 0.00-0.03 [facility] Comment on above: Performed By: #### C BC ####[facility] Wnmrrarnbr[address] [place], [place] [address]Dr. Slick Broderick IG % 0.5 % Normal 0.0-0.5 [facility] Comment on above: Performed By: #### C BC ####[facility] Jgupxigexr0548 [place] [phone]. Slick Broderick LYMPH # 0.7 103/ul Critically low 1.2-3.8 [facility] Comment on above: Performed By: #### C BC ####[facility] Uuuejeenfb9538 [place] [phone]. Slick Broderick Lymphocytes/100 WBC (Bld) 7.7 % Critically low 20.5-60.0 [facility] Comment on above: Performed By: #### C BC ####[facility] Dlupouwpnt9871 [place] [phone]. Slick Broderick MANUAL DIFF REQ NO Normal [facility] Comment on above: Performed By: #### C BC ####[facility] Ojjyxaheft7146 [place] [phone]. Slick Broderick MCH (RBC) [Entitic mass] 32.6 pg Normal 26.7-34.0 [facility] Comment on above: Performed By: #### C BC ####[facility] Vhkkqecpsi3780 [place] [phone]. Slick Broderick MCHC (RBC) [Mass/Vol] 32.1 g/dL Normal 29.9-35.2 [facility] Comment on above: Performed By: #### C BC ####[facility] Vockoobmjk6769 [place] [phone] Broderick MCV (RBC) [Entitic vol] 101.7 fL Critically high 81.0-99 .0 [facility] Comment on above: Performed By: #### C BC ####[facility] Ewcudpakyy7666 [place] [phone] Broderick MONO # 0.8 103/ul Normal 0.3-0.8 [facility] Comment on above: Performed By: #### C BC ####[facility] Enfckgviol9254 [place] [phone] Broderick Monocytes/100 WBC (Bld) 8.5 % Normal 1.7-12.0 [facility] Comment on above: Performed By: #### C BC ####[facility] Fhwlrdxfir1343 [place] [address]Dr. Slick Broderick NEUT # 7.3 103/ul Critically high 1.4-6.5 [facility] Comment on above: Performed By: #### C BC ####[facility] Ehomhonowv2179 [place] [address]Dr. Slick Broderick Neutrophils/100 WBC (Bld) 80.5 % Critically high 43.0-75.0 [facility] Comment on above: Performed By: #### C BC ####[facility] Tbnlibnbtt7412 [place] [address]Dr. Slick Broderick Platelet mean volume (Bld) [Entitic vol] 8.9 fL Critically low 9.5-13.5 [facility] Comment on above: Performed By: #### C BC ####[facility] Hqqknxuegf6602 [place] [address]Dr. Slick Broderick PLT 204 103/ul Normal 150-450 [facility] Comment on above: Performed By: #### C BC ####[facility] Buqkbbjlim0633 [place] [address]Dr. Slick Broderick RBC 2.36 106/ul Critically low 4.20-5.40 [facility] Comment on above: Performed By: #### C BC ####[facility] Uvamzdxtko9730 [place] [address]Dr. Slick Broderick WBC 9.1 103/ul Normal 4.0-11.0 [facility] Comment on above: Performed By: #### C BC ####[facility] Edmlnyrjqy2647 [place] [phone]. Slick Davie CBC W MANUAL DIFFon 12-13-19 22 ATYPICAL LYMPH # Normal [facility] Comment on above: Performed By: #### C BCMAN ####[facility] Wrgxnwowuv6309 [place] [address]Dr. Slick Broderick ATYPICAL LYMPH % Normal [facility] Comment on above: Performed By: #### C BCMAN ####[facility] Atfsutjcko6658 [place] [phone]. Yilan Broderick BAND # Normal 0.0-0.3 [facility] Comment on above: Performed By: #### C AIDEN ####[facility] Hhgyeylomb8872 [place] [address]Dr. Yilan Broderick BAND % Normal 0-5 [facility] Comment on above: Performed By: #### C AIDEN ####[facility] Sfqajouhhm3162 [place] [address]Dr. Yilan Broderick BASOM # 0.00 103/ul Normal 0.00-0.10 [facility] Comment on above: Performed By: #### C AIDEN ####[facility] Mecwtgfehh45[address] [place], [place] [address]Dr. Yilan Broderick BASOM % 0.0 % Critically low 0.2-2.0 [facility] Comment on above: Performed By: #### C AIDEN ####[facility] Jnzpocmxjc0511[address] [place], [place] [address]Dr. Yilan Broderick BLAST # Normal [facility] Comment on above: Performed By: #### C AIDEN ####[facility] Ufgvtusiov7965[address] [place], [place] [address]Dr. Yilan Broderick BLAST % Normal [facility] Comment on above: Performed By: #### C AIDEN ####[facility] Ypeobgkqii[address] [place] [address]Dr. Yilan Broderick CORRECTED WBC Normal 4.0-11.0 [facility] Comment on above: Performed By: #### C AIDEN ####[facility] Frkhkvebov58[address] [place] [address]Dr. Yilan Broderick EOS # 0.35 103/ul Normal 0.00-0.70 [facility] Comment on above: Performed By: #### C AIDEN ####[facility] Joaisykqvw535[address] [place], [place] [address]Dr. Yilan Broderick EOS% 3.0 % Normal 0.9-7.0 [facility] Comment on above: Performed By: #### C AIDEN ####[facility] Ambuzraish3588 [place], [place] [address]Ka. Slick Broderick HCT 21.4 % Critically low 36.0-48.0 [facility] Comment on above: Result Comment: TEST REPEATED CRITICAL VALUE VERIFIED Performed By: #### C AIDEN ####[facility] Qtqjeenxsk3792 [place], [place] [address]Jx. Slick Broderick HGB 6.6 g/dl Critically low 12.0-16.0 [facility] Comment on above: Result Comment: TEST REPEATED CRITICAL VALUE VERIFIED Performed By: #### C AIDEN ####[facility] Lbxgtszylp0279 [place] [phone]. Slick Broderick LYMPHM # 0.59 103/ul Critically low 1.20-3.80 [facility] Comment on above: Performed By: #### C AIDEN ####[facility] Alrxwelfvo7349 [place] [phone]. Slick Broderick LYMPHM% 5.0 % Critically low 20.5-60.0 [facility] Comment on above: Performed By: #### C AIDEN ####[facility] Rejoovvjfn5353 [place] [phone]. Slick Broderick MCH 33.2 pg Normal 26.7-34.0 [facility] Comment on above: Performed By: #### C AIDEN ####[facility] Dhudujkmdj7366 [place] [phone]. Slick Broderick MCHC 30.8 g/dl Normal 29.9-35.2 [facility] Comment on above: Performed By: #### C AIDEN ####[facility] Tsweebbhxu1335 [place] [phone]. Slick Broderick MCV 107.5 fL Critically high 81.0-99.0 [facility] Comment on above: Result Comment: RBCS APPEAR MACROCYTIC ON PERIPHERAL SMEAR Performed By: #### C AIDEN ####[facility] Rjhvlfttiy4491 [place] [phone]. Slick Broderick METAMYELOCYTE # Normal [facility] Comment on above: Performed By: #### C AIDEN ####[facility] Oseomrnbto7076 [place] [phone]. Slick Broderick METAMYELOCYTE % Normal [facility] Comment on above: Performed By: #### C AIDEN ####[facility] Aqvqdtkzds3979 [place] [phone]. Slick Broderick MONOM# 0.71 103/ul Normal 0.30-0.80 [facility] Comment on above: Performed By: #### C AIDEN ####[facility] Bxpofgtfej1068 [place] [phone]. Slick Broderick MONOM% 6.0 % Normal 1.7-12.0 [facility] Comment on above: Performed By: #### C AIDEN ####[facility] Wvavhsjhia3404 [place] [phone]. Slick Broderick MPV 9.2 fL Critically low 9.5-13.5 [facility] Comment on above: Performed By: #### C AIDEN ####[facility] Kjtjxwgyfd5538 [place] [phone]. Slick Broderick MYELOCYTE # Normal [facility] Comment on above: Performed By: #### Carlos Manuel WOLFE ####[facility] Aosyqzmamn4786 [place] [phone]. Slick Broderick MYELOCYTE % Normal [facility] Comment on above: Performed By: #### Carlos Manuel WOLFE ####[facility] Hddeemxeft3052 [place] [phone]. Slick Broderick NRBC Normal [facility] Comment on above: Performed By: #### C AIDEN ####[facility] Selcxthjnk8260 [place] [phone]. Slick Broderick PLT 232 103/ul Normal 150-450 [facility] Comment on above: Performed By: #### C AIDEN ####[facility] Ecgcvwhigt2790 [place] [phone]. Slick Broderick RBC 1.99 106/ul Critically low 4.20-5.40 [facility] Comment on above: Performed By: #### C BCMAN ####[facility] Edhjbiwjxs4411 [place], [place] [address]Hy. Slick Broderick RDW 15.6 % Critically high 11.0-15.0 [facility] Comment on above: Performed By: #### C ELIZABETHMAN ####[facility] Kbxxnuksau2279 [place], [place] [address]Dz. Slick Broderick SEG # 10.15 103/ul Critically high 1.40-6.50 [facility] Comment on above: Performed By: #### C ELIZABETHMAN ####[facility] Zsjkukkwdm1265 [place], [place] [address]Yp. Slick Broderick SEG % 86.0 % Critically high 43.0-75.0 [facility] Comment on above: Performed By: #### C BCMAN ####[facility] Epwtagyibv4927 [place], [place] [address]Sy. Slick Broderick WBC 11.8 103/ul Critically high 4.0-11.0 [facility] Comment on above: Performed By: #### C AIDEN ####[facility] Zeazohtfca4307 [place] [phone]. Slick Broderick CRPon 12-12-2021 CRP 10.1 mg/dL Critically high <=1.0 [facility] Comment on above: Performed By: #### B ICT HELP DESK TECHNICIAN, CRP, CMP ####[facility] Whcivsoysv4120 [place], [place] [address]Aa. Slick Broderick CULTURE BLOODon 12-12-2021 Microscopic examination of blood, culture Culture Observations: NO GROWTH AT 5 DAYS. [facility] Comment on above: Performed By: #### B LDCX2 ####[facility] [id number] [place] [id number]. Slick Broderick Microscopic examination of blood, culture Culture Observations: NO GROWTH AT 5 DAYS. Normal [facility] Comment on above: Performed By: #### B LDCX1 ####[facility] [address]hoj[address] [place] [id number]. Slick Broderick CULTURE URINEon 12-12-2021 CULTURE URINE Culture Observations: NO GROWTH. Normal [facility] Comment on above: Performed By: #### U RCX ####[facility] [address] [place] [address]Dr. Slick Broderick Covid-19 PCR (CVDTB)on SARS-CoV-2 (COVID-19) RNA DONNIE+probe Ql (Unsp spec) Not detected Normal NOT DETECTED [facility] Comment on above: Result Comment: When diagnostic [...] for this test is supported by the It Support Engineer of Health and Human Service's declaration that [...] be used). Performed By: #### C VDTBH ####[facility] [address]sdq[address] [place], [place] [address]Dr. Slick Broderick ER URINE PROFILEon 2 Bilirubin Ql (U) Negative Normal NEGATIVE [facility] Comment on above: Performed By: #### U MICRO, ERUR ####[facility] [address] [place], [place] [address]Dr. Slick Broderick Clarity (U) CLOUDY Abnormal CLEAR [facility] Comment on above: Performed By: #### U MICRO, ERUR ####[facility] Wh[address]qw[address]vvx[address] [place], [place] [address]Dr. Slick Broderick Color (U) LT. YELLOW Normal YELLOW [facility] Comment on above: Performed By: #### U MICRO, ERUR ####[facility] Dwomuivwql[address] [place], [place] [address]Dr. Slick SALGADO A micrscopic examination will be performed if indicated. Normal [facility] Comment on above: Performed By: #### U MICRO, ERUR ####[facility] [address]rffbu[address] [place] [address]Dr. Slick Broderick Glucose Ql (U) Negative Normal NEGATIVE [facility] Comment on above: Performed By: #### U MICRO, ERUR ####[facility] Yhmo[address]frmjt[address] [place] [address]Dr. Meaganwendie Davie Hemoglobin Ql (U) Negative Normal NEGATIVE [facility] Comment on above: Performed By: #### U MICRO, ERUR ####[facility] [address] [place], [place] [address]Dr. Slick Broderick Ketones Ql (U) Negative Normal NEGATIVE [facility] Comment on above: Performed By: #### U MICRO, ERUR ####[facility] [address]ekvj[address] [place], [place] [address]Dr. Slick Broderick LEUKOCYTES MODERATE Abnormal NEGATIVE [facility] Comment on above: Performed By: #### U MICRO, ERUR ####[facility] Uexmdmdnhm[address] [place], [place] [address]Dr. Meaganwendie Davie Nitrite Ql (U) Negative Normal NEGATIVE [facility] Comment on above: Performed By: #### U MICRO, ERUR ####[facility] Itbyjxemuv[address] [place], [place] [address]Dr. Slick Broderick pH (U) 6.0 [pH] Normal 5-9 [facility] Comment on above: Performed By: #### U MICRO, ERUR ####[facility] [address]txpm[address] [place] [address]Dr. Slick Broderick SPEC GRAVITY 1.010 Normal 1.005-<=1.0 25 [facility] Comment on above: Performed By: #### U MICRO, ERUR ####[facility] [address]ztf[address] [place] [address]Dr. Slick Broderick UA PROTEIN Negative Normal NEGATIVE/ TRACE [facility] Comment on above: Performed By: #### U MICRO, ERUR ####[facility] [address]arqhaa[address] [place] [address]Dr. Slick Broderick UR MICRO IND INDICATED Normal [facility] Comment on above: Performed By: #### U MICRO, ERUR ####[facility] Tlphsmwvte[address] [place] [address]Dr. Slick Broderick Urobilinogen Qn (U) 0.2 {Hiren'U}/dL Normal 0.2 - 1. 0 [facility] Comment on above: Performed By: #### U MICRO, ERUR ####[facility] Y[address]apjpj[address] [place] [address]Dr. Slick Broderick IRON AND TIBCon 12-12-2021 % SATURATION 7.0 % Normal [facility] Comment on above: Performed By: #### B 12FOL, FETIBC ####[facility] [address] [place] [address]Dr. Slick Broderick Iron [Mass/Vol] 18.0 ug/dL Critically low 50.0-170.0 [facility] Comment on above: Performed By: #### B 12FOL, FETIBC ####[facility] M[address]kyeqvrd[address] [place], [place] [address]Dr. Slick Broderick TIBC DIRECT 257.0 ug/dL Normal 250.0-450.0 The [facility] Comment on above: Performed By: #### B 12FOL, FETIBC ####[facility] Bbrogjhifk[address] [place], [place] [address]Dr. Slick Broderick LACTATE/LACTIC ACIDon 2021 Lactate [Moles/Vol] 0.7 mmol/L Normal 0.4-1.9 [facility] Comment on above: Performed By: #### L ACT ####[facility] [address]tvlrypzgi[address] [place], [place] [address]Dr. Slick Broderick OCC BLD IMMUNO SCREENon OCCULT BLOOD Negative Normal NEGATIVE [facility] Comment on above: Performed By: #### O BSCRN ####[facility] Qfkhpwobvy11[address] [place], [place] [address]Dr. Slick Broderick PROF 14(COMP METB)on 022 Albumin [Mass/Vol] 2.6 g/dL Critically low 3.4-5.0 [facility] Comment on above: Performed By: #### B ICT HELP DESK TECHNICIAN, CRP, CMP ####[facility] [address]asmqf[address] [place] [address]Dr. Slick Broderick Albumin/Globulin [Mass ratio] 0.7 {ratio} Normal [facility] Comment on above: Performed By: #### B ICT HELP DESK TECHNICIAN, CRP, CMP ####[facility] [address]ret[address]dfbs[address] [place] [address]Dr. Slick Broderick ALP [Catalytic activity/Vol] 105 U/L Normal 46-116 [facility] Comment on above: Performed By: #### B ICT HELP DESK TECHNICIAN, CRP, CMP ####[facility] Syagnhcpfi3[address] [place], [place] [address]Dr. Slick Broderick ALT [Catalytic activity/Vol] 16 U/L Normal 14-59 [facility] Comment on above: Performed By: #### B ICT HELP DESK TECHNICIAN, CRP, CMP ####[facility] Spkkytjqaz[address] [place], [place] [address]Dr. Slick Broderick Anion gap [Moles/Vol] 11.7 mmol/L Normal [facility] Comment on above: Performed By: #### B ICT HELP DESK TECHNICIAN, CRP, CMP ####[facility] Thbwbohjcs[address] [place], [place] [address]Dr. Slick Broderick AST [Catalytic activity/Vol] 11 U/L Critically low 15-37 [facility] Comment on above: Performed By: #### B ICT HELP DESK TECHNICIAN, CRP, CMP ####[facility] L[address]jqzubtue[address] [place], [place] [address]Dr. Slick Broderick Bilirubin [Mass/Vol] 0.3 mg/dL Normal 0.2-1.0 [facility] Comment on above: Performed By: #### B ICT HELP DESK TECHNICIAN, CRP, CMP ####[facility] Qehfgimrtd[address] [place], [place] [address]Dr. Slick Broderick Calcium [Mass/Vol] 7.8 mg/dL Critically low 8.5-10.1 [facility] Comment on above: Performed By: #### B ICT HELP DESK TECHNICIAN, CRP, CMP ####[facility] N[address]ypmqihb[address] [place] [address]Dr. Slick Broderick Chloride [Moles/Vol] 105 mmol/L Normal 98-107 [facility] Comment on above: Performed By: #### B ICT HELP DESK TECHNICIAN, CRP, CMP ####[facility] [address]empwodacx[address] [place] [address]Dr. Slick Broderick CO2 [Moles/Vol] 24.2 mmol/L Normal 21.0-32.0 [facility] Comment on above: Performed By: #### B ICT HELP DESK TECHNICIAN, CRP, CMP ####[facility] Uzqfvsdujt[address] [place], [place] [address]Dr. Slick Broderick Creatinine [Mass/Vol] 1.96 mg/dL Critically high 0.55-1.02 [facility] Comment on above: Performed By: #### B ICT HELP DESK TECHNICIAN, CRP, CMP ####[facility] Yyzcxyndeh[address] [place], [place] [address]Dr. Slick Broderick EGFR-AF [place] 30 mL/min/1.73m2 Critically low >=60 [facility] Comment on above: Performed By: #### B ICT HELP DESK TECHNICIAN, CRP, CMP ####[facility] Afqpuypkli1842[address] [place], [place] [address]Dr. Slick Broderick EGFR-NON AF [place] 25 mL/min/1.73m2 Critically low >=60 [facility] Comment on above: Performed By: #### B ICT HELP DESK TECHNICIAN, CRP, CMP ####[facility] Kibnkmxrxx[address] [place], [place] [address]Dr. Slick Broderick Globulin (S) [Mass/Vol] 3.8 g/dL Normal [facility] Comment on above: Performed By: #### B ICT HELP DESK TECHNICIAN, CRP, CMP ####[facility] Mjinrtxwcl8616[address] [place], [place] [address]Dr. Slick Broderick Glucose [Mass/Vol] 91 mg/dL Normal 74-106 [facility] Comment on above: Performed By: #### B ICT HELP DESK TECHNICIAN, CRP, CMP ####[facility] Cajoonbpix9942[address] [place], [place] [address]Dr. Slick Broderick Potassium [Moles/Vol] 4.9 mmol/L Normal 3.5-5.1 [facility] Comment on above: Performed By: #### B ICT HELP DESK TECHNICIAN, CRP, CMP ####[facility] Tfyiwdrqoa46[address] [place] [address]Dr. Slick Broderick Protein [Mass/Vol] 6.4 g/dL Normal 6.4-8.2 [facility] Comment on above: Performed By: #### B ICT HELP DESK TECHNICIAN, CRP, CMP ####[facility] Sikbcqwllj[address] [place], [place] [address]Dr. Slick Broderick Sodium [Moles/Vol] 136 mmol/L Normal 136-145 [facility] Comment on above: Performed By: #### B ICT HELP DESK TECHNICIAN, CRP, CMP ####[facility] Cucesjjbry[address] [place], [place] [address]Dr. Slick Broderick Urea nitrogen [Mass/Vol] 32.0 mg/dL Critically high 7.0-18.0 [facility] Comment on above: Performed By: #### B ICT HELP DESK TECHNICIAN, CRP, CMP ####[facility] Cutwnjjzba[address] [place], [place] [address]Dr. Slick Broderick Urea nitrogen/Creatinine [Mass ratio] 16.3 mg/mg Normal [facility] Comment on above: Performed By: #### B ICT HELP DESK TECHNICIAN, CRP, CMP ####[facility] Hxbrnpcntl[address] [place], [place] [address]Dr. Slick Broderick TYPE AND SCREENon 12-12-2021 TYPE AND SCREEN Negative Normal [facility] Comment on above: Performed By: #### T NS ####[facility] Qzxvbgljzy[address] [place], [place] [address]Dr. Slick Broderick URINE MICROSCOPIC ONLYon BACTERIA SMALL Abnormal NONE SEEN [facility] Comment on above: Performed By: #### U MICRO, ERUR ####[facility] Yoyyhzeift[address] [place], [place] [address]Dr. Slick Broderick Bacteria identified Cx Nom (U) INDICATED Normal [facility] Comment on above: Performed By: #### U MICRO, ERUR ####[facility] Kblfevrhyq[address] [place], [place] [address]Dr. Slick Broderick CAST NONE SEEN Normal NONE SEEN [facility] Comment on above: Performed By: #### U MICRO, ERUR ####[facility] Btdgpkrtyf[address] [place] [address]Dr. Slick Broderick Crystals LM Nom (Urine sed) NONE SEEN Normal NONE SEEN [facility] Comment on above: Performed By: #### U MICRO, ERUR ####[facility] T[address]oykdm4[address] [place] [address]Dr. Slick Broderick Epithelial cells LM Ql (Urine sed) MANY Abnormal NONE SEEN /RARE [facility] Comment on above: Performed By: #### U MICRO, ERUR ####[facility] Tthibopcor[address] [place], [place] [address]Dr. Slick Broderick MUCOUS TRACE Abnormal NONE SEEN [facility] Comment on above: Performed By: #### U MICRO, ERUR ####[facility] Oitypmllgf4[address] [place], [place] [address]Dr. Slick Broderick RBC 0-2 Normal 0-2 [facility] Comment on above: Performed By: #### U MICRO, ERUR ####[facility] Fikxskimsy[address] [place], [place] [address]Dr. Slick Broderick WBC 2-5 Abnormal NONE SEEN [facility] Comment on above: Performed By: #### U MICRO, ERUR ####[facility] Svlxoujuoj[address] [place], [place] [address]Dr. Slick Broderick VIT B12 AND FOLATEon 022 Cobalamin (Vitamin B12) [Mass/Vol] 753.0 pg/mL Normal 193.0-986.0 [facility] Comment on above: Performed By: #### B 12FOL, FETIBC ####[facility] Eeuoprskbt7[address] [place], [place] [address]Dr. Slick Broderick FOLATE 20.20 ng/mL Normal 8.60-58.90 [facility] Comment on above: Performed By: #### B 12FOL, FETIBC ####[facility] [address]yt[address] [place] [address]Dr. Slick Broderick XR CHEST 1 Von 12-12-2021 XR CHEST 1 V Normal [facility] XR KNEE LT 3Von 12-12-2021 XR KNEE LT 3V Normal [facility] PROF CHEM 8 (BAS METB)on Anion gap [Moles/Vol] 11.4 mmol/L Normal [facility] Comment on above: Performed By: #### B MP ####[facility] Y[address]ivzcsosi[address] [place] [address]Dr. Slick Broderick Calcium [Mass/Vol] 7.4 mg/dL Critically low 8.5-10.1 [facility] Comment on above: Performed By: #### B MP ####[facility] Savjkromjr[address] [place] [address]Dr. Slick Broderick Chloride [Moles/Vol] 109 mmol/L Critically high 98-107 [facility] Comment on above: Performed By: #### B MP ####[facility] Tpnoburwmh[address] [place], [place] [address]Dr. Slick Broderick CO2 [Moles/Vol] 26.6 mmol/L Normal 21.0-32.0 [facility] Comment on above: Performed By: #### B MP ####[facility] Ttnqtdcrlx[address] [place], [place] [address]Dr. Slick Broderick Creatinine [Mass/Vol] 1.16 mg/dL Critically high 0.55-1.02 [facility] Comment on above: Performed By: #### B MP ####[facility] Hxtyaodelg[address] [place], [place] [address]Dr. Slick Broderick EGFR-AF [place] 56 mL/min/1.73m2 Critically low >=60 [facility] Comment on above: Performed By: #### B MP ####[facility] Oxdhffcstz[address] [place], [place] [address]Dr. Slick Broderick EGFR-NON AF [place] 46 mL/min/1.73m2 Critically low >=60 [facility] Comment on above: Performed By: #### B MP ####[facility] Flgiwfiilq[address] [place], [place] [address]Dr. Slick Broderick Glucose [Mass/Vol] 128 mg/dL Critically high 74-106 [facility] Comment on above: Performed By: #### B MP ####[facility] [address]ssilseju[address] [place] [address]Dr. Slick Broderick Potassium [Moles/Vol] 5.0 mmol/L Normal 3.5-5.1 [facility] Comment on above: Performed By: #### B MP ####[facility] Mpxbjbqyhm[address] [place] [address]Dr. Meaganwendie Davie Sodium [Moles/Vol] 142 mmol/L Normal 136-145 [facility] Comment on above: Performed By: #### B MP ####[facility] O[address]ayrruma[address] [place] [address]Dr. Slick Davie Urea nitrogen [Mass/Vol] 22.0 mg/dL Critically high 7.0-18.0 [facility] Comment on above: Performed By: #### B MP ####[facility] Gwd[address]gbyb[address] [place] [address]Dr. Slick Davie Urea nitrogen/Creatinine [Mass ratio] 19.0 mg/mg Normal [facility] Comment on above: Performed By: #### B MP ####[facility] [address]gfyuqnki[address] [place], [place] [address]Dr. Slick Broderick XR TIB_FIB LT 2Von 2 XR TIB_FIB LT 2V Normal [facility] CT CSPINE WO CONon 2 CT CSPINE WO CON Normal [facility] CT HEAD WO CONon 11-29-2021 CT HEAD WO CON Normal [facility] XR lumbar spine AP/LAT/FLX/E XTon 10-06-2021 XR lumbar spine AP/LAT/FLX/EXT [facility] Copiny Other XR lumbar spine AP/LAT/FLX/EXT [facility] Copiny Other XR lumbar spine AP/LAT/FLX/EXT [address] [place] [address] [facility] Other XR lumbar spine AP/LAT/FLX/[place] [address] MOG Other XR lumbar spine AP/LAT/FLX/EXT XRay Report [facility] Other XR lumbar spine AP/LAT/FLX/EXT Signed M[facility] Other XR lumbar spine AP/LAT/FLX/EXT Patient: Linda Nascimento MR#: [id number] [facility] Other XR lumbar spine AP/LAT/FLX/EXT 840 MOG Other XR lumbar spine AP/LAT/FLX/EXT : 1950 Acct:[id number] M[facility] Other XR lumbar spine AP/LAT/FLX/EXT Age/Sex: 71 / F ADM Date: 10/06/21 MOG Other XR lumbar spine AP/LAT/FLX/EXT Loc: [facility] Room: Type: REG CLI MOG Other XR lumbar spine AP/LAT/FLX/EXT Attending Dr: Gunnar Fernandez DO MOG Other XR lumbar spine AP/LAT/FLX/EXT Ordering Provider: Gunnar Fernandez DO MOG Other XR lumbar spine AP/LAT/FLX/EXT Date of Service: 10/06/21 M[facility] Other XR lumbar spine AP/LAT/FLX/EXT XR/XR lumbar spine AP/LAT/FLX/EXT: Lumbar pain MOG Other XR lumbar spine AP/LAT/FLX/EXT Copies to: Gunnar Fernandez DO MOG Other XR lumbar spine AP/LAT/FLX/EXT Lumbar spine 10/06/2021. MOG Other XR lumbar spine AP/LAT/FLX/EXT CLINICAL DATA: Low back pain with radiation to the buttocks. MOG Other XR lumbar spine AP/LAT/FLX/EXT FINDINGS: 4 standing views of the lumbar spine were obtained including lateral views in the MOG Other XR lumbar spine AP/LAT/FLX/EXT neutral, flexion, and extension positions. MOG Other XR lumbar spine AP/LAT/FLX/EXT There is grade 2 spondylolisthesis measuring 17 mm at L4-L5. There is grade 1 spondylolisthesis MOG Other XR lumbar spine AP/LAT/FLX/EXT measuring 8 mm at the lumbosacral junction. There is mild anterior malalignment of L3 on L4. Overall MOG Other XR lumbar spine AP/LAT/FLX/EXT vertebral alignment does not significantly change with flexion or extension. There are disc space MOG Other XR lumbar spine AP/LAT/FLX/EXT narrowing and facet arthritis in the lower lumbar spine. MOG Other XR lumbar spine AP/LAT/FLX/EXT XR/XR lumbar spine AP/LAT/FLX/EXT MOG Other XR lumbar spine AP/LAT/FLX/EXT IMPRESSION: Multilevel spondylolisthesis. No instability with flexion or extension. Disc space MOG Other XR lumbar spine AP/LAT/FLX/EXT Impression dictated by: Marin Haines Jr., M.D.10/06/2021 4:07 PM MOG Other XR lumbar spine AP/LAT/FLX/EXT Dictation Location: [place] [address] MOG Other XR lumbar spine AP/LAT/FLX/EXT Transcribed By: ROLF 10/06/21 1607 MOG Other XR lumbar spine AP/LAT/FLX/EXT Dictated By: Marin Haines Jr, MD 10/06/21 1600 MOG Other XR lumbar spine AP/LAT/FLX/EXT Signed By: MOG Other XR lumbar spine AP/LAT/FLX/EXT 10/06/21 1607 MOG Other BASIC METABOLIC PANELon 11-1 Calcium [Mass/Vol] 8.2 mg/dL Low 8.6-10.3 [facility] Comment on above: Order Comment: No: D o not add to previous draw Performed By: #### 0 0071 ####[place] [place] [address], [facility] Chloride [Moles/Vol] 106 mmol/L Normal 98-107 [facility] Comment on above: Order Comment: No: D o not add to previous draw Performed By: #### 0 0071 ####[place] [place] [address], [facility] CO2 [Moles/Vol] 23 mmol/L Normal 21-31 [facility] Comment on above: Order Comment: No: D o not add to previous draw Performed By: #### 0 0071 ####[place] [place] [address], [facility] Creatinine [Mass/Vol] 0.98 mg/dL Normal 0.60-1.20 [facility] Comment on above: Order Comment: No: D o not add to previous draw Performed By: #### 0 0071 ####[place] [place] [address], [facility] eGFR- non- 56 ml/min/1.73sq m Abnormal >60 [facility] Comment on above: Order Comment: No: D o not add to previous draw Result Comment: Calc ulation may not be valid for patients over 70 years Performed By: #### 0 0071 ####[place] [id number], [facility] GFR/1.73 sq M.predicted among blacks MDRD (S/P/Bld) [Vol rate/Area] mL/min/{1.73_m2} Normal >60 [facility] Comment on above: Order Comment: No: D o not add to previous draw Result Comment: Calc ulation may not be valid for patients over 70 years Performed By: #### 0 0071 ####[place] [place] [address], [facility] Glucose [Mass/Vol] 104 mg/dL High 70-100 [facility] Comment on above: Order Comment: No: D o not add to previous draw Performed By: #### 0 0071 ####[place] [place] [address], [facility] Potassium [Moles/Vol] 4.5 mmol/L Normal 3.5-5.1 [facility] Comment on above: Order Comment: No: D o not add to previous draw Performed By: #### 0 0071 ####[place] [place] [address], [facility] Sodium [Moles/Vol] 136 mmol/L Normal 136-145 [facility] Comment on above: Order Comment: No: D o not add to previous draw Performed By: #### 0 0071 ####[place] [id number], [facility] Urea nitrogen [Mass/Vol] 14 mg/dL Normal 7-25 [facility] Comment on above: Order Comment: No: D o not add to previous draw Performed By: #### 0 0071 ####[place] [id number], [facility] HEMATOCRITon 04-28-2021 Hematocrit (Bld) [Volume fraction] 27.6 % Low 36.0-45.0 [facility] Comment on above: Order Comment: No: D o not add to previous draw Performed By: #### 5 3407, [address] #### [address] HEMOGLOBINon 04-28-2021 Hemoglobin (Bld) [Mass/Vol] 8.6 g/dL Low 12.0-15.0 [facility] Comment on above: Order Comment: No: D o not add to previous draw Performed By: #### 5 7307, [address] #### [place] [address] [facility]. [address] CHEST AND LATERALon 04-27-20 CHEST AND LATERAL [facility] Department of Radiology [address] [place] [id number] Patient Name: LINDA NASCIMENTO : 1950 Sex: F Age: Race: White Pt. Location: [id number] Patient Status: I Ordered Date: 04/27/2021 7:00:00 [...] leads. Electronically signed: Dwight Davila. Transcribed by: [email or web address], User Resident: Electronically Signed by: DWIGHT DAVILA @ 04/27/2021 10:35 AM Normal [facility] Comment on above: Order Comment: No: D o not add to previous draw BASIC METABOLIC PANELon 04-12 Calcium [Mass/Vol] 8.7 mg/dL Normal 8.6-10.3 [facility] Comment on above: Order Comment: No: D o not add to previous draw Performed By: #### 0 0071 ####[place] Chloride [Moles/Vol] 103 mmol/L Normal 98-107 [facility] Comment on above: Order Comment: No: D o not add to previous draw Performed By: #### 0 0071 ####[place] CO2 [Moles/Vol] 24 mmol/L Normal 21-31 [facility] Comment on above: Order Comment: No: D o not add to previous draw Performed By: #### 0 0071 ####[place] Creatinine [Mass/Vol] 1.05 mg/dL Normal 0.60-1.20 [facility] Comment on above: Order Comment: No: D o not add to previous draw Performed By: #### 0 0071 ####[place] [place] [address], [facility] eGFR- non- 51 ml/min/1.73sq m Abnormal >60 [facility] Comment on above: Order Comment: No: D o not add to previous draw Result Comment: Calc ulation may not be valid for patients over 70 years Performed By: #### 0 0071 ####[place] [place] [address], [facility] GFR/1.73 sq M.predicted among blacks MDRD (S/P/Bld) [Vol rate/Area] mL/min/{1.73_m2} Normal >60 [facility] Comment on above: Order Comment: No: D o not add to previous draw Result Comment: Calc ulation may not be valid for patients over 70 years Performed By: #### 0 0071 ####[place] [place] [address], [facility] Glucose [Mass/Vol] 107 mg/dL High 70-100 [facility] Comment on above: Order Comment: No: D o not add to previous draw Performed By: #### 0 0071 ####[place] [place] [address], [facility] Potassium [Moles/Vol] 4.6 mmol/L Normal 3.5-5.1 [facility] Comment on above: Order Comment: No: D o not add to previous draw Performed By: #### 0 0071 ####[place] [place] [address], [place] Sodium [Moles/Vol] 134 mmol/L Low 136-145 The [facility] Comment on above: Order Comment: No: D o not add to previous draw Performed By: #### 0 0071 ####[address] [place] [address], [place] Urea nitrogen [Mass/Vol] 21 mg/dL Normal 7-25 [facility] Comment on above: Order Comment: No: D o not add to previous draw Performed By: #### 0 0071 ####[address] [place] [address], [facility] CBC W/DIFFon 04-26-2021 ABS IMM GRANS 0.0 10*3/uL Normal 0.0-0.2 The [facility] Comment on above: Order Comment: No: D o not add to previous draw Performed By: #### 5 0103 #### [address] [place] [address], [facility] ABS NEUTROPHILS 4.8 10*3/uL Normal 1.6-7.6 The [facility] Comment on above: Order Comment: No: D o not add to previous draw Performed By: #### 5 0103 #### [address] [facility] [place] [address], [facility] Basophils (Bld) [#/Vol] 0.0 10*3/uL Normal 0.0-0.2 [facility] Comment on above: Order Comment: No: D o not add to previous draw Performed By: #### 5 3 #### [address] [place] [address], [facility] Basophils/100 WBC (Bld) 0.6 % Normal 0.0-1.0 T [facility] Comment on above: Order Comment: No: D o not add to previous draw Performed By: #### 5 0103 #### [address] [place] [address], [facility] Eosinophils (Bld) [#/Vol] 0.4 10*3/uL Normal 0.0-0.5 [facility] Comment on above: Order Comment: No: D o not add to previous draw Performed By: #### 5 0103 #### [place] [address] Eosinophils/100 WBC (Bld) 6.0 % Normal 0.0-6.0 [facility] Comment on above: Order Comment: No: D o not add to previous draw Performed By: #### 5 0103 #### [address] [place] [address], [facility] Erythrocyte distribution width (RBC) [Ratio] 13.1 % Normal 11.5-15.0 [facility] Comment on above: Order Comment: No: D o not add to previous draw Performed By: #### 5 0103 #### [address] [facility] [place] [address], [facility] Hematocrit (Bld) [Volume fraction] 27.8 % Low 36.0-45.0 [facility] Comment on above: Order Comment: No: D o not add to previous draw Performed By: #### 5 0103 #### [address] [facility] [place] [address], [facility] Hemoglobin (Bld) [Mass/Vol] 9.0 g/dL Low 12.0-15.0 [facility] Comment on above: Order Comment: No: D o not add to previous draw Performed By: #### 5 0103 #### [address] [facility] [place] [address], [facility] IMMATURE GRANS 0.3 % Normal 0.0-1.0 The [facility] Comment on above: Order Comment: No: D o not add to previous draw Performed By: #### 5 0103 #### [address] [place] [address], [facility] Lymphocytes (Bld) [#/Vol] 0.7 10*3/uL Low 1.2-4.0 [facility] Comment on above: Order Comment: No: D o not add to previous draw Performed By: #### 5 0103 #### [address] [address] [place] [address], [facility] Lymphocytes/100 WBC (Bld) 9.8 % Low 20.0-45.0 [facility] Comment on above: Order Comment: No: D o not add to previous draw Performed By: #### 5 0103 #### [address] [address] [place] [address], [facility] MCH (RBC) [Entitic mass] 33.5 pg High 27.0-33.0 [facility] Comment on above: Order Comment: No: D o not add to previous draw Performed By: #### 5 0103 #### [address] [address] [place] [address], [facility] MCHC (RBC) [Mass/Vol] 32.4 g/dL Normal 32.0-35.0 [facility] Comment on above: Order Comment: No: D o not add to previous draw Performed By: #### 5 0103 #### [address] [place] [address], [facility] MCV (RBC) [Entitic vol] 103.3 fL High 82.0-98.0 T he [facility] Comment on above: Order Comment: No: D o not add to previous draw Performed By: #### 5 0103 #### [address] [place] [address], [facility] Monocytes (Bld) [#/Vol] 0.7 10*3/uL Normal 0.1-1.0 [facility] Comment on above: Order Comment: No: D o not add to previous draw Performed By: #### 5 0103 #### [address] [address] [place] [address], [facility] MONOS 10.4 % Normal 5.0-12.0 [facility] Comment on above: Order Comment: No: D o not add to previous draw Performed By: #### 5 3 #### [address] [place] [address], [place] Neutrophils/100 WBC (Bld) 72.9 % High 40.0-72.0 [facility] Comment on above: Order Comment: No: D o not add to previous draw Performed By: #### 5 0103 #### [address] [place] [address], [facility] Nucleated RBC/100 WBC (Bld) [Ratio] 0 % Normal 0-0 [facility] Comment on above: Order Comment: No: D o not add to previous draw Performed By: #### 5 0103 #### [address] [address] [place] [address], [facility] PLAT CNT 213 10*3/uL Normal 150-400 [facility] Comment on above: Order Comment: No: D o not add to previous draw Performed By: #### 5 0103 #### [address] [address] [facility] [place] [address], [facility] RBC (Bld) [#/Vol] 2.69 10*6/uL Low 3.80-5.00 The [facility] Comment on above: Order Comment: No: D o not add to previous draw Performed By: #### 5 0103 #### [place] [address] [facility] [place] [address], [facility] WBC (Bld) [#/Vol] 6.62 10*3/uL Normal 4.00-10.60 The [facility] Comment on above: Order Comment: No: D o not add to previous draw Performed By: #### 5 0103 #### [address] [facility] [place] [address], [facility] Cardiovascular Lab Reporton 04-26-2021 Cardiovascular Lab Report [facility] Patient Name: Linda Nascimento [facility] Lisa MR #: [id number] Department of Physician: Enoch Frankel MD Medicine Service Date: 04/26/2021 Division of Birthdate: 1950 Cardiology Room #: [id number] Adult Cardiovascular Services [facility] [address] [facility] [place], [place] [address] Cardiovascular Laboratory Report PACEMAKER IMPLANT PROCEDURE NOTE [...] using modified seldinger technique using a 5 Sami micro-puncture needle on two occasions and 0.35 wires were placed. Local infiltration of 1% Lidocaine was performed, and an incision was created in the left upper chest. Dissection was then performed using cautery down to the fascial plane above the muscle and a small pocket was created for the device. 6 Sami Safesheaths were placed over the wire. An active fixation [employer] pacing lead was then delivered through the 6Fsheath to the right ventricle. After confirmation of lead position on orthogonal views ([place] and [place]) to confirm septal position, the screw was activated, and the lead was placed in the right ventricular mid cavity towards the septum. After confirmation of good sensing parameters, injury pattern and pacing thresholds, 10V pacing was done and no diaphragmatic stimulation was noted. It was then secured in the pocket using three 1-0 Silk sutures. Then an active fixation [employer] lead was delivered through the 6Fsheath to the right atrial appendage. After confirmation of lead position on orthogonal views ([place] and [place]), the screw was activated. RA lead was [...] Device info: Biotronik Edora Model# 8DRT Serial# [id number] RA lead: Model# Biotronik Solia S53 Serial# [id number] Sensin.9mV Threshold: 1.1V@0.5ms Impedance: 429 Ohms RV lead: Model (more content not included)... Normal [facility] BASIC METABOLIC PANELon 11-1 Calcium [Mass/Vol] 8.6 mg/dL Normal 8.6-10.3 [facility] Comment on above: Order Comment: No: D o not add to previous draw Performed By: #### 0 0071 ####[address] [place] [address], [place] Chloride [Moles/Vol] 101 mmol/L Normal 98-107 [facility] Comment on above: Order Comment: No: D o not add to previous draw Performed By: #### 0 0071 ####[address] [place] [address], [place] CO2 [Moles/Vol] 24 mmol/L Normal 21-31 [facility] Comment on above: Order Comment: No: D o not add to previous draw Performed By: #### 0 0071 ####[address] [place] [address], [facility] Creatinine [Mass/Vol] 1.36 mg/dL High 0.60-1.20 [facility] Comment on above: Order Comment: No: D o not add to previous draw Performed By: #### 0 0071 ####[address] [place] [address], [facility] eGFR- 46 ml/min/1.73sq m Abnormal >60 [facility] Comment on above: Order Comment: No: D o not add to previous draw Result Comment: Calc ulation may not be valid for patients over 70 years Performed By: #### 0 0071 ####[address] [place] [address], [place] eGFR- non- 39 ml/min/1.73sq m Abnormal >60 [facility] Comment on above: Order Comment: No: D o not add to previous draw Result Comment: Calc ulation may not be valid for patients over 70 years Performed By: #### 0 0071 ####[address] [place] [address], [place] Glucose [Mass/Vol] 98 mg/dL Normal 70-100 [facility] Comment on above: Order Comment: No: D o not add to previous draw Performed By: #### 0 0071 ####[address] [place] [address], [facility] Potassium [Moles/Vol] 4.4 mmol/L Normal 3.5-5.1 [facility] Comment on above: Order Comment: No: D o not add to previous draw Performed By: #### 0 0071 ####[address] [place] [address], [facility] Sodium [Moles/Vol] 132 mmol/L Low 136-145 [facility] Comment on above: Order Comment: No: D o not add to previous draw Performed By: #### 0 0071 ####[address] [facility] [place] [address], [facility] Urea nitrogen [Mass/Vol] 22 mg/dL Normal 7-25 [facility] Comment on above: Order Comment: No: D o not add to previous draw Performed By: #### 0 0071 ####[address] [facility] [place] [address], [facility] HEMATOCRITon 04-25-2021 Hematocrit (Bld) [Volume fraction] 28.3 % Low 36.0-45.0 [facility] Comment on above: Order Comment: No: D o not add to previous draw Performed By: #### 5 7307, 37489 #### [address] [place] [address], [facility] HEMOGLOBINon 04-25-2021 Hemoglobin (Bld) [Mass/Vol] 9.0 g/dL Low 12.0-15.0 [facility] Comment on above: Order Comment: No: D o not add to previous draw Performed By: #### 9 7957, 79636 #### [address] BASIC METABOLIC PANELon 11-1 Calcium [Mass/Vol] 8.8 mg/dL Normal 8.6-10.3 [facility] Comment on above: Order Comment: No: D o not add to previous draw Performed By: #### 1 0, 98236 ####[address] [place] [address], [facility] Chloride [Moles/Vol] 101 mmol/L Normal 98-107 [facility] Comment on above: Order Comment: No: D o not add to previous draw Performed By: #### 1 69, 27497 ####[address] [place] [address], [facility] CO2 [Moles/Vol] 26 mmol/L Normal 21-31 [facility] Comment on above: Order Comment: No: D o not add to previous draw Performed By: #### 1 69, 73686 ####[address] [place] [address], [facility] Creatinine [Mass/Vol] 1.17 mg/dL Normal 0.60-1.20 [facility] Comment on above: Order Comment: No: D o not add to previous draw Performed By: #### 1 69, 77165 ####[address] eGFR- 55 ml/min/1.73sq m Abnormal >60 [facility] Comment on above: Order Comment: No: D o not add to previous draw Result Comment: Calc ulation may not be valid for patients over 70 years Performed By: #### 1 69, 92548 ####[address] [place] [address], [facility] eGFR- non- 45 ml/min/1.73sq m Abnormal >60 [facility] Comment on above: Order Comment: No: D o not add to previous draw Result Comment: Calc ulation may not be valid for patients over 70 years Performed By: #### 1 69, 01852 ####[address] [facility] [place] [address], [facility] Glucose [Mass/Vol] 102 mg/dL High 70-100 [facility] Comment on above: Order Comment: No: D o not add to previous draw Performed By: #### 1 69, 03116 ####[address] [facility] [place] [address], [facility] Potassium [Moles/Vol] 4.5 mmol/L Normal 3.5-5.1 [facility] Comment on above: Order Comment: No: D o not add to previous draw Performed By: #### 1 69, 59174 ####[address] [facility] [place] [address], [facility] Sodium [Moles/Vol] 133 mmol/L Low 136-145 [facility] Comment on above: Order Comment: No: D o not add to previous draw Performed By: #### 1 69, 20781 ####[address] [facility] [place] [address], [facility] Urea nitrogen [Mass/Vol] 20 mg/dL Normal 7-25 [facility] Comment on above: Order Comment: No: D o not add to previous draw Performed By: #### 1 69, 83240 ####[address] [facility] [place] [address], [facility] HEMOGLOBINon 04-24-2021 Hemoglobin (Bld) [Mass/Vol] 10.0 g/dL Low 12.0-15.0 [facility] Comment on above: Order Comment: Yes: Add to Previous draw if able NEEDS DRAWN. NO LAV TUBE FROM AM LABS Performed By: #### 9 2089 #### [place] [address] [place] [id number], [facility] MAGNESIUM BLOODon 04-24-2021 Magnesium [Mass/Vol] 2.1 mg/dL Normal 1.9-2.7 [facility] Comment on above: Order Comment: No: D o not add to previous draw Performed By: #### 1 69, 06066 ####[address] [facility] [place] [address], [facility] BASIC METABOLIC PANELon 11- Calcium [Mass/Vol] 8.4 mg/dL Low 8.6-10.3 [facility] Comment on above: Order Comment: Unkno wn Performed By: #### 1 0, 41260, 88501 ####[address] [facility] [place] [address], [facility] Chloride [Moles/Vol] 100 mmol/L Normal 98-107 [facility] Comment on above: Order Comment: Unkno wn Performed By: #### 1 69, 14473, 46499 ####[address] [facility] [place] [address], [facility] CO2 [Moles/Vol] 25 mmol/L Normal 21-31 [facility] Comment on above: Order Comment: Unkno wn Performed By: #### 1 69, 99539, 23856 ####[address] [facility].[address] Creatinine [Mass/Vol] 1.30 mg/dL High 0.60-1.20 [facility] Comment on above: Order Comment: Unkno wn Performed By: #### 1 69, 95272, 94612 ####[address] [facility] [place] [address], [facility] eGFR- 49 ml/min/1.73sq m Abnormal >60 [facility] Comment on above: Order Comment: Unkno wn Result Comment: Calc ulation may not be valid for patients over 70 years Performed By: #### 1 0, 01762, 40291 ####[address] [facility] eGFR- non- 40 ml/min/1.73sq m Abnormal >60 [facility] Comment on above: Order Comment: Unkno wn Result Comment: Calc ulation may not be valid for patients over 70 years Performed By: #### 1 0070, 22364, 30124 ####[address] [facility] [place] [address], [facility] Glucose [Mass/Vol] 93 mg/dL Normal 70-100 [facility] Comment on above: Order Comment: Unkno wn Performed By: #### 1 0, 71384, 66383 ####[address] [place] [address], [facility] Potassium [Moles/Vol] 4.1 mmol/L Normal 3.5-5.1 [facility] Comment on above: Order Comment: Unkno wn Performed By: #### 1 0, 79562, 68193 ####[address] [facility] [place] [address], [facility] Sodium [Moles/Vol] 133 mmol/L Low 136-145 [facility] Comment on above: Order Comment: Unkno wn Performed By: #### 1 0, 38920, 85594 ####[address] [facility].[address] Urea nitrogen [Mass/Vol] 20 mg/dL Normal 7-25 [facility] Comment on above: Order Comment: Unkno wn Performed By: #### 1 0, 82809, 86190 ####[address] [facility] [place] [address], [facility] CBC W/DIFFon 04-23-2021 ABS IMM GRANS 0.1 10*3/uL Normal 0.0-0.2 The [facility] Comment on above: Order Comment: Unkno wn Performed By: #### 5 0103 #### [address] [place] [address], [facility] ABS NEUTROPHILS 7.8 10*3/uL High 1.6-7.6 [facility] Comment on above: Order Comment: Unkno wn Performed By: #### 5 0103 #### [address] [place] [address], [facility] Basophils (Bld) [#/Vol] 0.1 10*3/uL Normal 0.0-0.2 [facility] Comment on above: Order Comment: Unkno wn Performed By: #### 5 0103 #### [address] [place] [address], [facility] Basophils/100 WBC (Bld) 0.5 % Normal 0.0-1.0 T [facility] Comment on above: Order Comment: Unkno wn Performed By: #### 5 0103 #### [place] [facility] [place] [address], [facility] Eosinophils (Bld) [#/Vol] 0.4 10*3/uL Normal 0.0-0.5 [facility] Comment on above: Order Comment: Unkno wn Performed By: #### 5 0103 #### [address] [place] [address], [facility] Eosinophils/100 WBC (Bld) 3.5 % Normal 0.0-6.0 [facility] Comment on above: Order Comment: Unkno wn Performed By: #### 5 0103 #### [address] [place] [address], [place] Erythrocyte distribution width (RBC) [Ratio] 13.2 % Normal 11.5-15.0 [facility] Comment on above: Order Comment: Unkno wn Performed By: #### 5 3 #### [address] [place] [address], [facility] Hematocrit (Bld) [Volume fraction] 29.2 % Low 36.0-45.0 [facility] Comment on above: Order Comment: Unkno wn Performed By: #### 5 0103 #### [address] [place] [address], [facility] Hemoglobin (Bld) [Mass/Vol] 9.3 g/dL Low 12.0-15.0 [facility] Comment on above: Order Comment: Unkno wn Performed By: #### 5 0103 #### [place] [address] [facility] [place] [address], [facility] IMMATURE GRANS 0.6 % Normal 0.0-1.0 The [facility] Comment on above: Order Comment: Unkno wn Performed By: #### 5 0103 #### [place] [address] [place] [address], [facility] Lymphocytes (Bld) [#/Vol] 0.7 10*3/uL Low 1.2-4.0 [facility] Comment on above: Order Comment: Unkno wn Performed By: #### 5 3 #### [place] [address] [facility] [place] [address], [facility] Lymphocytes/100 WBC (Bld) 6.8 % Low 20.0-45.0 [facility] Comment on above: Order Comment: Unkno wn Performed By: #### 5 3 #### [place] [address] [facility] [place] [address], [facility] MCH (RBC) [Entitic mass] 33.5 pg High 27.0-33.0 [facility] Comment on above: Order Comment: Unkno wn Performed By: #### 5 3 #### [place] [address] [facility] [place] [address], [facility] MCHC (RBC) [Mass/Vol] 31.8 g/dL Low 32.0-35.0 [facility] Comment on above: Order Comment: Unkno wn Performed By: #### 5 3 #### [place] [address] [place] [address], [facility] MCV (RBC) [Entitic vol] 105.0 fL High 82.0-98.0 T [facility] Comment on above: Order Comment: Unkno wn Performed By: #### 5 010 #### [place] [address] [place] [address], [facility] Monocytes (Bld) [#/Vol] 1.0 10*3/uL Normal 0.1-1.0 [facility] Comment on above: Order Comment: Unkno wn Performed By: #### 5 0103 #### [place] [address] [facility] [place] [address], [facility] MONOS 10.0 % Normal 5.0-12.0 [facility] Comment on above: Order Comment: Unkno wn Performed By: #### 5 3 #### [place] [address] [facility] [place] [address], [facility] Neutrophils/100 WBC (Bld) 78.6 % High 40.0-72.0 [facility] Comment on above: Order Comment: Unkno wn Performed By: #### 5 0103 #### [place] [address] [facility] [place] [address], [facility] Nucleated RBC/100 WBC (Bld) [Ratio] 0 % Normal 0-0 [facility] Comment on above: Order Comment: Unkno wn Performed By: #### 5 0103 #### [place] [address] [place] [address], [place] PLAT CNT 227 10*3/uL Normal 150-400 [facility] Comment on above: Order Comment: Unkno wn Performed By: #### 5 3 #### [place] [address] [place] [address], [facility] RBC (Bld) [#/Vol] 2.78 10*6/uL Low 3.80-5.00 [facility] Comment on above: Order Comment: Unkno wn Performed By: #### 5 0103 #### [place] [address] [place] [address], [facility] WBC (Bld) [#/Vol] 9.87 10*3/uL Normal 4.00-10.60 [facility] Comment on above: Order Comment: Unkno wn Performed By: #### 5 0103 #### [place] [address] MAGNESIUM BLOODon 04-23-2021 Magnesium [Mass/Vol] 2.1 mg/dL Normal 1.9-2.7 [facility] Comment on above: Order Comment: Unkno wn Performed By: #### 1 0070, 17938, 23655 ####[place] [facility] PHOSPHORUS BLOODon Phosphate [Mass/Vol] 2.8 mg/dL Normal 2.5-5.0 [facility] Comment on above: Order Comment: Unkno wn Performed By: #### 1 0070, 00725, 19999 ####[place] [facility].[address] APTTon 04-22-2021 aPTT Coag (Bld) [Time] 27.6 s Normal 25.0-35.0 [facility] Comment on above: Order Comment: [...] THIS PURPOSE. Performed By: #### 5 7307, 48522 #### [place] [address] BASIC METABOLIC PANELon 04-12 Calcium [Mass/Vol] 8.8 mg/dL Normal 8.6-10.3 [facility] Comment on above: Order Comment: No: D o not add to previous draw Performed By: #### 4 1000, 44040, 90041, 44024 ####[address] [place] [address], [facility] Chloride [Moles/Vol] 99 mmol/L Normal 98-107 [facility] Comment on above: Order Comment: No: D o not add to previous draw Performed By: #### 4 1000, 42435, 39052, 09849 ####[place] [place] [address], [facility] CO2 [Moles/Vol] 27 mmol/L Normal 21-31 [facility] Comment on above: Order Comment: No: D o not add to previous draw Performed By: #### 4 1000, 02184, 81455, 93410 ####[place] [place] [address], [facility] Creatinine [Mass/Vol] 1.39 mg/dL High 0.60-1.20 [facility] Comment on above: Order Comment: No: D o not add to previous draw Performed By: #### 4 1000, 49020, 74955, 87261 ####[place] eGFR- 45 ml/min/1.73sq m Abnormal >60 [facility] Comment on above: Order Comment: No: D o not add to previous draw Result Comment: Calc ulation may not be valid for patients over 70 years Performed By: #### 4 1000, 69528, 17536, 37866 ####[place] [place] [address], [facility] eGFR- non- 37 ml/min/1.73sq m Abnormal >60 [facility] Comment on above: Order Comment: No: D o not add to previous draw Result Comment: Calc ulation may not be valid for patients over 70 years Performed By: #### 4 1000, 90974, 02460, 09474 ####[place] [facility] [place] [address], [facility] Glucose [Mass/Vol] 91 mg/dL Normal 70-100 [facility] Comment on above: Order Comment: No: D o not add to previous draw Performed By: #### 4 1000, 12274, 31256, 90043 ####[place] [facility] [place] [address], [facility] Potassium [Moles/Vol] 4.4 mmol/L Normal 3.5-5.1 [facility] Comment on above: Order Comment: No: D o not add to previous draw Performed By: #### 4 1000, 06263, 75501, 40916 ####[place] [facility].[address] Sodium [Moles/Vol] 133 mmol/L Low 136-145 [facility] Comment on above: Order Comment: No: D o not add to previous draw Performed By: #### 4 1000, 08713, 55574, 77624 ####[place] [facility] [place] [address], [facility] Urea nitrogen [Mass/Vol] 24 mg/dL Normal 7-25 [facility] Comment on above: Order Comment: No: D o not add to previous draw Performed By: #### 4 1000, 73156, 25222, 13359 ####[place] [facility] [place] [address], [facility] CBC W/DIFFon 04-22-2021 ABS IMM GRANS 0.0 10*3/uL Normal 0.0-0.2 The [facility] Comment on above: Performed By: #### 5 0103 #### [place] [address] [place] [address], [place] ABS NEUTROPHILS 5.8 10*3/uL Normal 1.6-7.6 The [facility] Comment on above: Performed By: #### 5 0103 #### [place] [address] [place] [address], [facility] Basophils (Bld) [#/Vol] 0.1 10*3/uL Normal 0.0-0.2 [facility] Comment on above: Performed By: #### 5 0103 #### [place] [address] [place] [address], [facility] Basophils/100 WBC (Bld) 0.6 % Normal 0.0-1.0 T [facility] Comment on above: Performed By: #### 5 0103 #### [place] [address] [facility] [place] [address], [facility] Eosinophils (Bld) [#/Vol] 0.2 10*3/uL Normal 0.0-0.5 [facility] Comment on above: Performed By: #### 5 0103 #### [place] [address] [facility] [place] [address], [facility] Eosinophils/100 WBC (Bld) 2.7 % Normal 0.0-6.0 [facility] Comment on above: Performed By: #### 5 3 #### [place] [address] [facility] [place] [address], [facility] Erythrocyte distribution width (RBC) [Ratio] 13.0 % Normal 11.5-15.0 [facility] Comment on above: Performed By: #### 5 3 #### [place] [address] [facility] [place] [address], [facility] Hematocrit (Bld) [Volume fraction] 29.2 % Low 36.0-45.0 [facility] Comment on above: Performed By: #### 5 3 #### [place] [address] [place] [address], [facility] Hemoglobin (Bld) [Mass/Vol] 9.6 g/dL Low 12.0-15.0 [facility] Comment on above: Performed By: #### 5 0103 #### [place] [address] [facility] [place] [address], [facility] IMMATURE GRANS 0.5 % Normal 0.0-1.0 The [facility] Comment on above: Performed By: #### 5 0103 #### [place] [address] [place] [address], [facility] Lymphocytes (Bld) [#/Vol] 1.1 10*3/uL Low 1.2-4.0 [facility] Comment on above: Performed By: #### 5 0103 #### [place] [address] [facility] [place] [address], [facility] Lymphocytes/100 WBC (Bld) 13.4 % Low 20.0-45.0 [facility] Comment on above: Performed By: #### 5 0103 #### [place] [address] [facility] [place] [address], [facility] MCH (RBC) [Entitic mass] 33.1 pg High 27.0-33.0 [facility] Comment on above: Performed By: #### 5 0103 #### [place] [address] [place] [address], [facility] MCHC (RBC) [Mass/Vol] 32.9 g/dL Normal 32.0-35.0 [facility] Comment on above: Performed By: #### 5 0103 #### [place] [address] [place] [address], [facility] MCV (RBC) [Entitic vol] 100.7 fL High 82.0-98.0 T will [facility] Comment on above: Performed By: #### 5 3 #### [place] [address] [place] [address], [facility] Monocytes (Bld) [#/Vol] 0.7 10*3/uL Normal 0.1-1.0 [facility] Comment on above: Performed By: #### 5 0103 #### [place] [address] [facility] [address], [facility] MONOS 9.1 % Normal 5.0-12.0 [facility] Comment on above: Performed By: #### 5 0103 #### [place] [address] [facility] [place] [address], [facility] Neutrophils/100 WBC (Bld) 73.7 % High 40.0-72.0 [facility] Comment on above: Performed By: #### 5 0103 #### [place] [address] [facility] [place] [address], [facility] Nucleated RBC/100 WBC (Bld) [Ratio] 0 % Normal 0-0 [facility] Comment on above: Performed By: #### 5 0103 #### [place] [address] [facility] [place] [address], [facility] PLAT CNT 234 10*3/uL Normal 150-400 [facility] Comment on above: Performed By: #### 5 0103 #### [place] [address] [facility] [place] [address], [facility] RBC (Bld) [#/Vol] 2.90 10*6/uL Low 3.80-5.00 [facility] Comment on above: Performed By: #### 5 0103 #### [place] [address] [facility] [place] [address], [facility] WBC (Bld) [#/Vol] 7.81 10*3/uL Normal 4.00-10.60 [facility] Comment on above: Performed By: #### 5 3 #### [place] [address] [facility] [place] [address], [facility] FERRITINon 04-22-2021 Ferritin [Mass/Vol] 74 ng/mL Normal 11-307 [facility] Comment on above: Order Comment: No: D o not add to previous draw Performed By: #### 8 4044, 79146, 37133, 92863, 84468, 90538 ####[place] FOLATE SERUMon 04-22-2021 SERUM FOLATE 29.00 ng/mL Normal 6.60-1000.0 0 [facility] Comment on above: Order Comment: No: D o not add to previous draw Result Comment: Norm al range reflects World Health Organization International Standard Performed By: #### 8 4044, 06575, 18788, 71802, 60624, 29135 ####[place] HAPTOGLOBINon 04-22-2021 HAPTOGLOBIN 302 mg/dL High 26-164 [facility] Comment on above: Order Comment: No: D o not add to previous draw Performed By: #### 3 0103 #### [place] [address] KNEE LEFT 1 OR 2 VWSon 04-22 KNEE LEFT 1 OR 2 VWS [facility] Department of Radiology [address] [place] [id number] Patient Name: LINDA NASCIMENTO : 1950 Sex: F Age: Race: White Pt. Location: [id number] Patient Status: I Ordered Date: 04/22/2021 2:30:00 AM Completed Date: 04/22/2021 02:52 AM Requesting Provider: GUNNAR CHRISTIANSON Attending Provider: ROBERTA VELA Report Copy To: Signs & Symptoms: Pain ( specify Location) History: See Comments Comments: evaluate for FX Exam: KNEE LEFT 1 OR 2 [facility] KNEE LEFT 1 OR 2 S [...] report. Electronically signed: Boris Jara. Transcribed by: [email or web address], User Resident: NITHIN GARAY Electronically Signed by: BORIS JARA @ 04/22/2021 03:09 AM I personally read this/these film(s) with this resident Normal [facility] Comment on above: Order Comment: No: D o not add to previous draw KNEE RIGHT 1 OR 2 [facility] 04-12 KNEE RIGHT 1 OR 2 [facility] Department of Radiology [address] [place] [id number] Patient Name: LINDA NASCIMENTO : 1950 Sex: F Age: Race: White Pt. Location: [id number] Patient Status: I Ordered Date: 04/22/2021 2:30:00 [...] report. Electronically signed: Boris Jara. Transcribed by: [email or web address], User Resident: NITHIN AGRAY Electronically Signed by: BORIS JARA @ 04/22/2021 03:09 AM I personally read this/these film(s) with this resident Normal [facility] Comment on above: Order Comment: No: D o not add to previous draw LDH BLOODon 04-22-2021 LDH 232 Units/L Normal 140-271 [facility] Comment on above: Order Comment: No: D o not add to previous draw Performed By: #### 8 4044, 32529, 74342, 39637, 76297, 94338 ####[place] [place] [address], [place] LIVER BATTERYon 04-22-2021 Albumin [Mass/Vol] 3.9 g/dL Normal 3.5-5.7 [facility] Comment on above: Order Comment: No: D o not add to previous draw Performed By: #### 5 7307, 08654 #### [place] [address] [place] [address], [place] ALKALINE PHOSPH 74 IU/L Normal 34-104 [facility] Comment on above: Order Comment: No: D o not add to previous draw Performed By: #### 5 7307, 14669 #### [place] [address] [place] [address], [place] ALT [Catalytic activity/Vol] 9 U/L Normal 7-52 [facility] Comment on above: Order Comment: No: D o not add to previous draw Performed By: #### 5 7307, 19170 #### [place] [address] [place] [address], [place] AST [Catalytic activity/Vol] 19 U/L Normal 13-39 [facility] Comment on above: Order Comment: No: D o not add to previous draw Performed By: #### 5 7307, 74164 #### [place] [address] [place] [address], [place] Bilirubin [Mass/Vol] 0.5 mg/dL Normal 0.3-1.0 [facility] Comment on above: Order Comment: No: D o not add to previous draw Performed By: #### 5 7307, 07526 #### [place] [address] [place] [address], [place] Bilirubin.direct [Mass/Vol] 0.1 mg/dL Normal 0.0-0.2 [facility] Comment on above: Order Comment: No: D o not add to previous draw Performed By: #### 5 7307, 23041 #### [place] [address] [place] [address], [place] Protein [Mass/Vol] 6.5 g/dL Normal 6.0-8.3 [facility] Comment on above: Order Comment: No: D o not add to previous draw Performed By: #### 5 7307, 24250 #### [place] [address] [place] [address], [facility] MAGNESIUM BLOODon 04-22-2021 Magnesium [Mass/Vol] 2.0 mg/dL Normal 1.9-2.7 [facility] Comment on above: Order Comment: No: D o not add to previous draw Performed By: #### 4 1000, 43082, 11046, 41929 ####[place] [place] [address], [facility] PERIPHERAL SMEARon 1 Nucleated RBC/100 WBC (Bld) [Ratio] 0 % Normal 0-0 [facility] Comment on above: Order Comment: No: D o not add to previous draw Performed By: #### 5 7307, 92139 #### [place] [address] [place] [address], [facility] OTHER PS1 Macrocytic anemia with no significant RBC morphology. Normal [facility] Comment on above: Order Comment: No: D o not add to previous draw Performed By: #### 5 7307, 70526 #### [place] [address] [place] [address], [place] OTHER PS2 Check serum B12 and folate. Normal [facility] Comment on above: Order Comment: No: D o not add to previous draw Performed By: #### 5 7307, 18980 #### [place] [address] [place] [address], [place] OTHER PS3 Otherwise unremarkable leukocytes and platelets. Normal [facility] Comment on above: Order Comment: No: D o not add to previous draw Performed By: #### 5 7307, 60620 #### [place] [address] [facility] OTHER PS4 Normal [facility] Comment on above: Order Comment: No: D o not add to previous draw Result Comment: Chec ked by Mayra Encinas M.D. Performed By: #### 5 7307, 60631 #### [place] [address] PHOSPHORUS BLOODon 1 Phosphate [Mass/Vol] 3.4 mg/dL Normal 2.5-5.0 [facility] Comment on above: Order Comment: No: D o not add to previous draw Performed By: #### 5 7307, 89208 #### [place] [address] [facility] [address] PROTHROMBIN TIMEon 1 INR Coag (PPP) [Relative time] 1.01 {INR} Normal 0.91-1.16 [facility] Comment on above: Order Comment: [...] CHEST 1995;[id number]. Performed By: #### 5 7307, 23760 #### [place] [address] [place] [address], [facility] PT Coag (PPP) [Time] 13.3 s Normal 12.3-14.8 [facility] Comment on above: Order Comment: No: D o not add to previous draw Result Comment: ALL RESULTS MUST BE INTERPRETED WITH RESPECT TO BLOOD DRAWING ARTIFACT OR DILUTION ERROR OF ANTICOAGULANT AT THE TIME OF SAMPLING. Performed By: #### 5 7307, 69797 #### [place] [address] RETICULOCYTE PANELon 11-11-2 021 ABSOLUTE RETICULOCYTE 0.0711 10*6/uL Normal 0.02 50-0.10 00 [facility] Comment on above: Order Comment: No: D o not add to previous draw Performed By: #### 5 73, 43396 #### [place] [address] IMMATURE RETICULOCYTE FRACTION 12.8 % Normal 2.0-16.0 [facility] Comment on above: Order Comment: No: D o not add to previous draw Performed By: #### 5 73, 66870 #### [place] [address] [place] [address], [facility] RETIC COUNT 2.37 % High 0.50-1.80 [facility] Comment on above: Order Comment: No: D o not add to previous draw Performed By: #### 5 7307, 92265 #### [place] [address] [place] [address], [facility] RETICULOCYTE HEMOGLOBIN 37.5 pg High 28.0-36.0 T [facility] Comment on above: Order Comment: No: D o not add to previous draw Performed By: #### 5 7307, 84520 #### [place] [address] TIBC- INCLUDES IRONon 2020 FE SATURATION 16 % Low 20-50 [facility] Comment on above: Order Comment: No: D o not add to previous draw Performed By: #### 8 4044, 15264, 51163, 50161, 42495, 50677 ####[place] Iron [Mass/Vol] 54 ug/dL Normal 50-212 [facility] Comment on above: Order Comment: No: D o not add to previous draw Performed By: #### 8 4044, 77730, 29590, 18735, 57418, 50831 ####[place] [facility].[address] TIBC 332 mcg/dL Normal 250-450 [facility] Comment on above: Order Comment: No: D o not add to previous draw Performed By: #### 8 4044, 99505, 61224, 61960, 62521, 25762 ####[place] [facility].[address] UIBC 278 mcg/dL Normal 155-355 [facility] Comment on above: Order Comment: No: D o not add to previous draw Performed By: #### 8 4044, 68281, 37726, 93535, 87552, 32540 ####[place] TSH3 WITH REFLEX FT4on 04-22 TSH 3RD GENERATION 1.72 uIU/mL Normal 0.34-5.60 [facility] Comment on above: Performed By: #### 8 4044, 30531, 07006, 17185, 53198, 13212 ####[place] VITAMIN B12on 04-22-2021 Cobalamin (Vitamin B12) [Mass/Vol] 771 pg/mL Normal 180-914 [facility] Comment on above: Order Comment: No: D o not add to previous drawPt using restroom Result Comment: REFE STEVEN RANGES: 180-914 pg/mL Normal 145-179 pg/mL Indeterminate <145 pg/mL Deficient Performed By: #### 8 4044, 59153, 87988, 55963, 17556, 34934 ####[place] [address] Vital Signs Date Time Vital Sign Value Performing Clinician Facility 02-05-2025 12:36-0400 Body height 165.[address] Mehta MD Work Phone: [facility] 02-05-2025 12:36-0400 Body mass index (BMI) [Ratio] 40.7 kg/m2 Ave Mehta MD Work Phone: [facility] 02-05-2025 12:36-0400 Body weight 111.[address] Mehta MD Work Phone: [facility] 02-05-2025 12:36-0400 Diastolic blood pressure 78 mm[Hg] Ave Mehta MD Work Phone: [facility] 02-05-2025 12:36-0400 Heart rate 76 /min Ave Mehta MD Work Phone: [facility] 02-05-2025 12:36-0400 Systolic blood pressure 126 mm[Hg] Ave Mehta MD Work Phone: [facility] 10-06-2021 14:00-0400 Body height 165.1 cm Gunnar Fernandez Other [facility] Other 10-06-2021 14:00-0400 Body mass index (BMI) [Ratio] 40.77 kg/m2 Gunnar Fernandez Other [facility] Other 10-06-2021 14:00-0400 Body weight 111.13 kg Gunnar Fernandez Other [facility] Other Encounters Encounter Date Encounter Type Care Provider Facility Start: 02-05-2025 End: 02-05-[address] Mehta MD Work Phone: [facility] Work Phone: Start: 02-05-2025 End: 02-05-2025 Patient encounter procedure Kristen White DO -[facility] Work Phone: Start: 01-13-2025 End: 01-15-2025 Evaluation and management of inpatient Jarrod Mahajan [place] Start: 01-13-2025 Emergency department patient visit Facility[facility] Start: 01-06-2025 ambulatory [facility] Start: 12-31-2024 End: 12-31-2024 ambulatory [facility] Start: 10-21-2024 ambulatory [facility] Start: 10-04-2024 ambulatory [facility] Start: 07-31-2024 End: 07-31-[address] Mehta MD Work Phone: [facility] [address] Work Phone: Start: 07-31-2024 End: 07-31-[address] Mehta MD Work Phone: [facility] Work Phone: Start: 05-21-2024 End: 05-21-2024 ambulatory [facility] Start: 03-20-2023 End: 03-21-2023 ambulatory Ирина Gibson MD Facility:[facility] Start: 01-23-2023 End: 01-24-2023 ambulatory Ирина Gibson MD Facility:[facility] Start: 01-09-2023 End: 01-10-2023 ambulatory Ирина Gibson MD Facility:[facility] Start: 12-12-2022 End: 12-13-2022 ambulatory Ирина Gibson MD Facility:[facility] Start: 10-25-2022 ambulatory LEÓN DIAS Faci lity:[facility]1 Start: 10-14-2022 End: 10-14-2022 ambulatory LEONIE COYLE Facility:[facility] Start: 09-23-2022 End: 09-24-2022 [facility] Start: 09-14-2022 End: 09-15-2022 [...] 03-30-2022 End: 03-30-2022 ambulatory Rancho Chamorro Other [facility] Other Start: 03-30-2022 Telephone encounter [facility] [place] Start: 03-28-2022 End: 03-29-[address] MEHT[address] . Facility:[facility] Start: 03-27-[address] MEHT[address] . Facili ty:[facility]1 Start: 03-24-2022 Office outpatient vi sit 25 minutes Rancho Chamorro [facility] [place] Start: 03-24-2022 End: 04-03-2022 ambulatory UNKNOWN PROVIDER [facility] Other Start: 03-16-2022 End: 03-16-2022 ambulatory Rancho Chamorro Other [facility] Other Start: 03-16-2022 Telephone encounter [facility] Start: 03-11-2022 End: 03-12-2022 [facility]ulatory [facility] Start: 02-18-2022 End: 02-19-2022 ambulatory [facility] Start: 02-11-2022 End: 02-12-[address] MEHTA . Facility:[facility]1 Start: 01-28-2022 End: 01-29-2022 [facility] Start: 01-11-2022 End: 01-12-[address] MEHT[address] . Facility:[facility]1 Start: 01-04-2022 End: 01-05-2022 ambulatory LEÓN Tejada [facility] Facility:[facility] Start: 12-23-2021 End: 12-23-2021 ambulatory Rancho Chamorro Other [facility] Other Start: 12-23-2021 Office outpatient vi sit 25 minutes Rancho Chamorro [facility] [place] Start: 12-20-2021 End: 12-21-2021 [facility] Start: 12-13-2021 End: 12-14-2021 Evaluation and management of inpatient DR AVE MEHTA . Facility:[facility]1 Start: 12-07-2021 Encounter for [facility]procedural cardiovascular examination [facility] Start: 12-06-2021 End: 12-06-2021 amb[facility] Start: 12-05-2021 End: 12-05-[address] MEHT[address] . Facility:[facility]1 Start: 12-02-2021 End: 12-03-2021 ambulatory LEÓN Tejada [facility] Facility:[facility] Start: 12-02-2021 End: 12-03-2021 Encounter for preprocedural cardiovascular examination LEÓN DIAS Facility:[facility]1 Start: 11-30-2021 End: 12-01-2021 ambulatory LEÓN DIAS Facility:[facility]1 Start: 11-29-2021 End: 11-29-2021 ambulatory MIRNA PARSONS . Facility:[facility]1 Start: 11-17-2021 End: 11-17-2021 ambulatory Rancho Chamorro Other [facility] Other Start: 11-17-2021 Office outpatient vi sit 15 minutes Emilie Perez [facility] Start: 11-17-2021 Telephone encounter [facility] [place] Start: 11-04-2021 End: 11-04-2021 ambulatory Rancho Chamorro Other [facility] Other Start: 11-04-2021 Telephone encounter Rancho BAKER G [facility] Start: 11-03-2021 (Procedure) Short Rancho Chamorro [facility] Start: 11-03-2021 End: 11-03-2021 ambulatory Rancho Chamorro Other [facility] Other Start: 11-03-2021 Office outpatient vi sit 25 minutes Emilie Perez [facility] Start: 10-28-2021 End: 10-28-2021 ambulatory Rancho Chamorro Other [facility] Other Start: 10-28-2021 Office outpatient vi sit 25 minutes Rancho Chamorro [facility] [place] Start: 10-07-2021 End: 10-07-2021 ambulatory Gunnar Fernandez Other [facility] Other Start: 10-07-2021 Telephone encounter Gunnar BAKER G [facility] Start: 10-06-2021 End: 10-06-2021 ambulatory Gunnar Fernandez Other [facility] Other Start: 10-06-2021 Office outpatient vi sit 15 minutes Gunnar Fernandez [facility] Start: 09-08-2021 End: 09-08-2021 ambulatory Gunnar Fernandez Other [facility] Other Start: 09-08-2021 Office outpatient vi sit 15 minutes Gunnar Fernandez [facility] Start: 04-22-2021 End: 04-29-2021 Evaluation and management of inpatient ROBERTA DANE Facility:[facility] Procedures Date Procedure Procedure Detail Performing Clinician Start: 12-12-2021 Transfusion of Nonau tologous Red Blood Cells into Peripheral Vein, Percutaneous Approach DR AVE MEHTA . Plan of Treatment Date Care Activity Detail Author Start: 07-31-2024 Aldolase measurement [facility] Start: 07-31-2024 Hemolytic complement CH50 level [facility] Start: 07-31-2024 Hepatitis B core ant ibody measurement [facility] Start: 07-31-2024 [facility] Angiotensin converti ng enzyme [Enzymatic activity/volume] in Serum or Plasma [facility] Chromatin Ab [Units/ volume] in Serum or Plasma [facility] Complement C3 [Mass/ volume] in Serum or Plasma [facility] Complement C4 [Mass/ volume] in Serum or Plasma [facility] Hepatitis B virus hernandez rface Ab [Presence] in Serum [facility] Hepatitis B virus hernandez rface Ag [Presence] in Serum or Plasma by Immunoassay [facility] Hepatitis C virus Ig G Ab [Presence] in Serum or Plasma by Immunoassay [facility] Homogenous nuclear A b pattern [Titer] in Serum [facility] Nuclear Ab [Titer] in Serum [facility] Reagin Ab [Presence] in Serum by RPR [facility] Thyroglobulin Ab [Un its/volume] in Serum or Plasma [facility] Thyroperoxidase Ab [ Units/volume] in Serum or Plasma [facility] Immunizations Immunization Date Immunization Notes Care Provider Fa cility 07-13-2020 COVID-19 mRNA, Comirnaty (Pfizer) Ave Mehta MD Work Phone: [facility] 06-19-2020 COVID-19 mRNA, Comirnaty (Pfizer) Ave Mehta MD Work Phone: [facility] Payers Date Payer Category Payer Medicare [id number] 2025 Unknown [id number] 2024 Self-pay 2023 Medicaid [id number] 2022 Medicare 2022 Unknown 2002 Medicare [id number] 1959 Medicare [id number] 1959 Self-pay [id number] 1959 Unknown [id number] 1948 Unknown [id number] 2.16.8 40.1.991421.3.579.2.647 1948 Unknown [id number] 2.16. 840.1.697608.3.579.2.732 1948 Unknown [id number] 2.16.84 0.1.340039.3.579.2.593 1948 Unknown [id number] 2.16.84 0.1.861088.3.579.2.593 1948 Unknown [id number] 2.16.84 0.1.195328.3.579.2.593 1948 Unknown [id number] 2.16.84 0.1.647613.3.579.2.593 1948 Unknown [id number] 2.16.84 0.1.864071.3.579.2.593 1948 Unknown [id number] 2.16.84 0.1.898947.3.579.2.593 1948 Unknown [id number] 2.16.84 0.1.042093.3.579.2.593 1948 Unknown [id number] 2.16.84 0.1.912019.3.579.2.593 1948 Unknown [id number] 2.16.84 0.1.303737.3.579.2.593 1948 Unknown [id number] 2.16.84 0.1.858285.3.579.2.593 1948 Unknown [id number] 2.16.84 0.1.019677.3.579.2.593 1948 Unknown [id number] 2.16.84 0.1.125844.3.579.2.593 1948 Unknown [id number] 2.16.84 0.1.363846.3.579.2.593 1948 Unknown [id number] 2.16.84 0.1.626454.3.579.2.593 1948 Unknown [id number] 2.16.84 0.1.199112.3.579.2.593 1948 Unknown [id number] 2.16.84 0.1.014146.3.579.2.593 1948 Unknown [id number] 2.16.84 0.1.793901.3.579.2.593 1948 Unknown [id number] 2.16.84 0.1.603468.3.579.2.593 1948 Unknown [id number] 2.16.84 0.1.547836.3.579.2.593 1948 Unknown [id number] 2.16.84 0.1.027602.3.579.2.593 1948 Unknown [id number] 2.16.84 0.1.970132.3.579.2.593 1948 Unknown [id number] 2.16.84 0.1.670608.3.579.2.593 1948 Unknown [id number] 2.16.84 0.1.592698.3.579.2.593 1948 Unknown [id number] 2.16.84 0.1.013175.3.579.2.593 1948 Unknown [id number] 2.16.84 0.1.946755.3.579.2.593 1948 Unknown [id number] 2.16.84 0.1.150930.3.579.2.593 1948 Unknown [id number] 2.16.84 0.1.911926.3.579.2.593 1948 Unknown [id number] 2.16.84 0.1.354371.3.579.2.593 1948 Unknown [id number] 2.16. 840.1.694154.3.579.2.196 1948 Unknown [id number] 2.16. 840.1.721982.3.579.2.196 1948 Unknown [id number] 2.16. 840.1.449084.3.579.2.196 1948 Unknown [id number] 2.16. 840.1.695564.3.579.2.196 1948 Unknown [id number] 2.16.8 40.1.929393.3.579.2.727 1948 Unknown [id number] 2.16.8 40.1.882595.3.579.2.727 1948 Unknown [id number] 2.16.8 40.1.748294.3.579.2.727 1948 Unknown [id number] 2.16.8 40.1.072841.3.579.2.727 1948 Unknown [id number] 2.16.8 40.1.905069.3.579.2.727 1948 Unknown [id number] 2.16.8 40.1.124450.3.579.2.727 Unknown [id number] 2.16.84 0.1.208231.3.579.2.593 Unknown [id number] 2.16.8 40.1.215625.3.579.2.531 Social History Date Type Detail Facility Sex Assigned At [facility] Other Start: 11-07-2021 End: 11-07-2021 Tobacco smoking status NHIS Never smoked tobacco (finding) [facility] Start: 08-01-2024 Sex Female (finding) [facility] Start: 1950 Sex Assigned At Female F [facility] Clinical Notes 04-29-2021 to 01-20-2025 Note Date [...] Locations R1: This test was performed at: [facility], [address] [place] [address], [facility] , , [facility] Comment on above: Performed By: #### [id number] #### [facility] [address] [place] [address] 01-20-2025 Note Microbiology PROCEDURE: Blood Culture Charcoal [R1] SOURCE: Blood BODY SITE: Wrist R COLLECTED DATE/TIME: 01/13/2025 15:02 EDT RECEIVED DATE/TIME: 01/13/2025 15:10 EDT START DATE/TIME: 01/13/2025 15:10 EDT FREE TEXT SOURCE: Bobo Ashraf, Brittny Broussard M.D., Brittny Mejia FINAL REPORTS Final Report [] Verified Date/Time: 01/20/2025 15:55 EDT No growth at 7 days. Performing Locations R1: This test was performed at: [facility], [address] [place] [address], [id number] , [place], [facility] Comment on above: Performed By: #### [id number] #### [facility] [address] [place] [id number] 01-15-2025 Note Discharge Summary Admission and Discharge Information Admit Date/Time:01/13/2025 15:12 Admitting Physician - Jarrod Mahajan III, DO Consulting Physician - Marino Roe MD [facility] [place] Admitting Diagnoses: Discharge Diagnoses 1. [...] vitamin D deficiency who was brought to [facility] on 01/13/2025 after being found unresponsive at [facility]. Stroke alert was called in the [...] discharge. Sepsis: Treated for recent pneumonia at [facility] possibly aspiration. Also has chronic lower extremity wounds. Met sepsis criteria with source being either lower extremity wounds and/or pneumonia. Started on Vanco, Zosyn, azithromycin. Vancomycin discontinued as nasal MRSA screening was negative. Patient's white blood cell count down trended. Patient was still on oxygen from her previous admission at [facility]. She completed 3 days of azithromycin IV [...] thoughts. Tests Performe (more content not included)... [facility] Comment on above: Result Comment: Elec tronically Signed By: Jarrod Mahajan III, DO\.br\Date and Time Signed: 01/15/25 11:03 EDT 01-15-2025 Note Progress Note-Physic jessica Assessment/Plan ASSESSMENT: Reportedly unresponsive at the [place]. Not sure what this means. I do [...] baseline. Waiting to go back to the [place]. Review of Systems GEN: No fevers or [...] alert. Attention mildly impaired. Oriented to [place], January,. LANG: Speech is somewhat hypophonic, monotone. [...] Lymph Auto: 7.1 % Low (01/15/25 04:57:00) [place] Auto: 8.5 % (01/15/25 04:57:00) Eos Auto: 7 % (01/15/25 04:57:00) Basophil Auto: 0.7 % (01/15/25 04:57:00) Neutro Absolute: 9.4 E9/L High (01/15/25 04:57:00) Lymph Absolute: 0.9 E9/L Low (01/15/25 04:57:00) [place] Absolute: 1 E9/L (01/15/25 04:57:00) Eos Absolute: 0.9 E9/L High (01/15/25 04:57:00) Basophil Absolute: 0.1 E9/L (01/15/25 04:57:00) Glucose Lvl: 94 mg/dL (01/15/25 04:57:00) BUN: 23 mg/dL High ( (more content not included)... [facility] Comment on above: Result Comment: Elec [...] vitamin D deficiency who was brought to [facility] on 01/13/2025 after being found unresponsive at [facility]. Treated for recent pneumonia at [facility] possibly aspiration. Also has chronic lower extremity [...] eGFR Sbsq Hospital Care/Day Moderate 35 Minutes 09615 2. Pneumonia (J18.9: Pneumonia, unspecified organism) Treatment [...] She recently had an ASHLEY on recent [place] admission and had downtrended to 1.6. Will [...] escitalopram, 10 mg (more content not included)... [facility] Comment on above: Result Comment: Elec tronically Signed By: Jarrod Mahajan III, DO\.br\Date and Time Signed: 01/14/25 16:48 EDT 01-14-2025 Note Echocardiology Procedure Exam Date/Time Accession # Ordering Echo Transthoracic w/ 01/14/2025 11:49 EDT [id number] Jarrod Mahajan III, DO CPT code 82723 C8929 Reason for Exam (Echo Transthoracic w/ Contrast) Congestive Heart Failure Report [facility] [address] [place] [address] Adult Echocardiogram Report Name: LINDA NASCIMENTO Study Date: 01/14/2025 11:05 AM BP: 144/96 mmHg Patient Location: N204 01 HR: 62 : 1950 Gender: Female Height: 65 in Age: 74 yrs Ethnicity: [facility] Weight: 287 lb Reason For Study: Congestive Heart Failure BSA: 2.3 m2 History: Pacemaker, AFIB, CAD, Sarcoidosis, CKD, Seizures, Retinal artery occlusion Ordering Physician: Jarrod Mahajan Performed By: Kami Ruiz [facility] Interpretation Summary The left ventricle is normal [...] Alvarado MD Transcribed by: MARYSE Technologist: LENI [facility] 01-13-2025 Note History and Physical Basic [...] vitamin D deficiency who was brought to [facility] on 01/13/2025 after being found unresponsive at [facility]. Stroke alert was called in ER. On record review, patient recently treated for an aspiration pneumonia at [facility] and was seemingly still on outpatient oral [...] me that she chronically lives at this [facility]. She is pleasant and conversational. She [...] Lymph Auto: 5.2 % Low (01/13/25 13:19:00) [place] Auto: 2.2 % Low (01/13/25 13:19:00) Eos Auto: 0.4 % (01/13/25 13:19:00) Basophil Auto: 0.5 % (01/13/25 13:19:00) Neutro Absolute: 12.6 E9/L High (01/13/25 13:19:00) Lymph Absolute: 0.7 E9/L Low (01/13/25 13:19:00) [place] Absolute: 0.3 E9/L (01/13/25 13:19:00) Eos Absolute: [...] 139 mmol/L (01/13/ (more content not included)... [facility] Comment on above: Result Comment: Elec [...] Lymph Auto: 5.2 % Low (01/13/25 13:19:00) [place] Auto: 2.2 % Low (01/13/25 13:19:00) Eos Auto: 0.4 % (01/13/25 13:19:00) Basophil Auto: 0.5 % (01/13/25 13:19:00) Neutro Absolute: 12.6 E9/L High (01/13/25 13:19:00) Lymph Absolute: 0.7 E9/L Low (01/13/25 13:19:00) [place] Absolute: 0.3 E9/L (01/13/25 13:19:00) Eos Absolute: [...] 14:18:00) UA Leuk Est: Negat (01/13/25 14:18:00) [facility] 12-31-2024 Note [place] Electrophysiology Consult Note [place] Cardiology [facility] Reason for visit: Afib 12/31/24 Patient is here today for a device check and a follow up appointment. Patient states her chest hurts due to fluid in her chest, patient states the nurse at the [facility] told her she doesn't have pneumonia. Patient [...] managed for her heart failure by Tracie Ambrcoio. last echocardiogram done on 09/14/2022 reveals ejection fraction of 65% with RVSP of 35 mmHg Prior HPI: Linda Nascimento is a 74 y.o. year old with prior history of transferred from an [facility] to [facility] following a fall that she sustained. She was noted to be bradycardic and EKG at that time showed her to have bradycardia in the rate of 30s following admission to [facility] she was noted to have a [...] ANGIOGRAM W AND/OR WO IV CONTRAST 04/23/[address] [facility] [address] IMAGING CTA CHEST W IV CONTRAST 04/23/2022 CT CHEST ANGIOGRAM W AND/OR WO IV CONTRAST 04/23/[address] [facility] [address] IMAGING TONSILLECTO (more content not included)... [facility] 05-21-2024 Note [place] Electrophysiology Consult Note [place] Cardiology [facility] Reason for visit: 05/21/24 Pt has [...] with prior history of transferred from an [facility] to [facility] following a fall that she sustained. She was noted to be bradycardic and EKG at that time showed her to have bradycardia in the rate of 30s following admission to [facility] she was noted to have a [...] anemia 04/23/2022 Sarcoidosis 11/18/2013 Sinus node dysfunction ([facility]) 04/23/2022 PSH: Past Surgical History: Procedure Laterality Date CARDIAC CATHETERIZATION CARDIAC PACEMAKER PLACEMENT COLONOSCOPY CT AORTA AND BILATERAL ILIOFEMORAL RUNOFF ANGIOGRAM W AND/OR WO IV CONTRAST 04/23/2022 CT AORTA AND BILATERAL ILIOFEMORAL RUNOFF ANGIOGRAM W AND/OR WO IV CONTRAST 04/23/[address]22 [facility] [address] IMAGING CT CHEST ANGIOGRAM W AND/OR WO IV CONTRAST 04/23/2022 CT CHEST ANGIOGRAM W AND/OR WO IV CONTRAST 04/23/[address] [facility] [address] IMAGING TONSILLECTOMY SH: Social Determinants [...] Partner Violence: Unkn (more content not included)... [facility] 03-30-2022 Evaluation note Encounter Date Diagnosis Assessment Notes Mar, Other spondylosis with radiculopathy, lumbar region (ICD-10 - M47.26) [facility] Other 10-13-2022 Evaluation note* Encounter Date Diagnosis [...] note writ ten by Summer Molina LPN, Poll Watcher. Edited and approved by Dr. Rancho Chamorro MD. [facility] Other 10-05-2022 Evaluation note* Encounter Date Diagnosis Assessment Notes Treatment Notes Treatment Clinical Notes Mar, Other low back pain (ICD-10 - M54.59) [facility] Other 07-14-2022 Evaluation note* Encounter Date Diagnosis [...] note writ ten by Mika Villalobos MA, Poll Watcher. Edited and approved by Dr. Rancho Chamorro MD. [facility] Other 06-08-2022 Evaluation note* Encounter Date Diagnosis [...] note writ ten by Mika Villalobos MA, Poll Watcher. Edited and approved by Dr. Rancho Chamorro MD. [facility] Other 06-08-2022 Evaluation note* Encounter Date Diagnosis [...] four weeks, case discussed with Dr. Diaz [facility] has been contacted and will consult wound care. [facility] Other 05-25-2022 Evaluation note* Encounter Date Diagnosis [...] for Keflex BID x 14 days and Cres[place]. Patient and sister instructed to contact office with any signs of infection or significant changes [facility] Other 05-19-2022 Evaluation note* Encounter Date Diagnosis [...] note writ ten by Summer Molina LPN, Poll Watcher. Edited and approved by Dr. Rancho Chamorro MD. [facility] Other 04-28-2022 Evaluation note* Encounter Date Diagnosis Assessment Notes Treatment Notes Treatment Clinical Notes Sep, Pacemaker (ICD-10 - Z95.0) [facility] Other 04-27-2022 Evaluation note* Encounter Date Diagnosis [...] spinal osteoarthritis complication status (ICD-10 - M47.816) [facility] Other 03-30-2022 Evaluation note* Encounter Date Diagnosis [...] D. To call with questions or concerns. [facility] Other 11-18-2021 NoteMR#: [id number] I [facility] Pt. Name: Linda Nascimento Admitted: [...] a 70-year-old female, [facility]. She reported [...] The patient was subsequently transferred to the [facility] for higher level of care. Cardiology [...] Lozada MD Date Trans: 04/29/2021 12:17 P/roni [id number] cc: Leslie Arroyo M.D. [address] [place] [address]. Mailstop [address] [facility] [address] M[address]D. [address] [place] [address]CqgHolzer Health SystemEvaluation noteNo InformationNortGuthrie Clinic [facility] Other Evaluation noteNo assessment information available [facility] Work Phone: Evaluation note* Diagnosis Onset Date Resolution Status Admit Date Stroke-like symptoms noneactive Augu 2024 12:30pm [facility] Work Phone: History general Narrative - Reported* Type Description Date Medical History bipolar Medical History Arthritis Medical History high blood pressure Medical History chronic depression Medical History iron deficiency anemia Medical History kidney disease Medical History hyperlipidemia Medical History anxiety Medical History vitamin D deficiency Surgical History tonsillectomy Surgical History laparoscopy Hospitalization History depression [facility] Other Reason for referral (narrative)No reason for referral information availableOhiohealth Berger Hospital Work Phone: Summary Purpose Family History Relationship [...] and content) DATE CREATED AUTHOR 05/30/2021 [facility] DATE CREATED AUTHOR AUTHOR'S ORGANIZ ATION 04/05/2022 [facility] DATE CREATED AUTHOR AUTHOR'S ORGANIZ ATION 10/19/2022 [facility] DATE CREATED AUTHOR AUTHOR'S ORGANIZ ATION 03/27/2023 [facility] DATE CREATED AUTHOR AUTHOR'S ORGANIZ ATION 05/10/2024 [facility] DATE CREATED AUTHOR AUTHOR'S ORGANIZ ATION 08/09/2024 [facility] DATE CREATED AUTHOR AUTHOR'S ORGANIZ ATION 01/15/2025 [facility] DATE CREATED AUTHOR AUTHOR'S ORGANIZ ATION 01/16/2025 [facility] DATE CREATED AUTHOR AUTHOR'S ORGANIZ ATION 01/17/2025 [facility] DATE CREATED AUTHOR AUTHOR'S ORGANIZ ATION 01/18/2025 [facility] DATE CREATED AUTHOR AUTHOR'S ORGANIZ ATION 01/19/2025 [facility] DATE CREATED AUTHOR AUTHOR'S ORGANIZ ATION 01/21/2025 [facility] [place] [facility] ical Center REASON FOR VISIT (unrecogniz ed [...] THE PRIMARY CLINICAL RECORDS. [facility] [employer] [facility]. provides no warranty or guarantee of the accuracy or completeness of information in this document.
[2025-02-09 06:50] LABS: Anion Gap 15.3; Blood Urea Nitrogen 22.0 mg/dL (7.0-18.0); Calcium 8.9 mg/dL (8.5-10.1); Carbon Dioxide 28.3 mmol/L (21.0-32.0); Chloride 102 mmol/L (98-107); Estimated GFR (African America 26 (>=60 mL/min/1.73m^2); Estimated GFR (Non-African Ame 22 (>=60 mL/min/1.73m^2); Glucose 100 mg/dL (74-106); Potassium 3.6 mmol/L (3.5-5.1); Sodium 142 mmol/L (136-145)
[2025-02-09 06:54] LABS: Hematocrit 34.6 % (36.0-48.0); Hemoglobin 11.4 g/dL (12.0-16.0); Mean Corpuscular HGB Conc 32.9 g/dL (29.9-35.2); Mean Corpuscular Hemoglobin 35.0 pg (26.7-34.0); Mean Corpuscular Volume 106.1 fL (81.0-99.0); Platelet Count 160 10^3/uL (150-450); Red Blood Count 3.26 10^6/uL (4.20-5.40); White Blood Count 8.8 10^3/uL (4.0-11.0)
--- NOTE | 2025-02-09 11:28 | CT_ITS ---
The [address] [address] Patient Name: TIGIST MARCIAL MRN: [id number] date: 1950 Sex: F Assigned Patient Location: Current Patient Location: Accession/Order Number: [id number] Exam Date: 02/09/2025 14:30 Report Date: 02/09/2025 16:02 At the request of: PETTY EVANS MD Procedure: CT abdomen pelvis wo con CT abdomen pelvis wo con 02/09/2025 2:54 PM SIGNS AND SYMPTOMS: ASHLEY, urinary retention, r/o Obstructive uropathy, TECHNIQUE: Multidetector ct axial images of the abdomen and pelvis were obtained without IV contrast. Multiplanar reformats were performed and reviewed to further define anatomy and possible pathology. CT was performed with one or more of the following dose reduction techniques: Automated exposure control, adjustment of the mA and/or kV according to patient size, or use of iterative reconstruction technique. COMPARISON: None. FINDINGS: Lower Chest: Atherosclerotic changes are noted in the coronary arteries. ABDOMEN: Liver: Within normal limits. Bile Ducts: Within normal limits. Gallbladder: Stones are noted in the gallbladder lumen. Pancreas: Within normal limits. Spleen: Within normal limits. Adrenals: Within normal limits. Kidneys: There is a 5 mm nonobstructing stone in the left renal collecting system. Pelvis: Reproductive Organs: No pelvic masses. Ureters: Within normal limits. Bladder: There is a Forte catheter within the bladder lumen. Bowel: Normal caliber. There is a normal appendix in the right lower quadrant. There is a large amount of stool within the rectum suspicious for fecal impaction. Mesenteric Lymph Nodes: No enlarged mesenteric lymph nodes. Peritoneum: No ascites or free air, no fluid collection. Vessels: Atherosclerotic changes are noted in the abdominal aorta and its branches. Retroperitoneum: Within normal limits. Abdominal Wall: There is a fat-containing periumbilical hernia. There is partial visualization of a suspected laceration in the right upper extremity. Bones: Degenerative changes are noted in the lumbar spine with grade 2 spondylolisthesis of L4 upon L5. Remote left superior and inferior pubic rami fractures are noted extending into the left side of the symphysis pubis. Degenerative changes are noted in the hips. There is a remote fracture of the left sacral ala. CT/CT abdomen pelvis wo con IMPRESSION: No bowel obstruction or obstructive uropathy. Stones are noted in the gallbladder lumen. There is a large amount of stool within the rectum suspicious for fecal impaction. Remote left-sided pelvic fractures are noted. Additional chronic findings are noted as above. Impression dictated by: Rogelio Madrid M.D. 02/09/2025 4:02 PM Dictation Location: [place] [address] Electronically authenticated by: [id number] Y Date: 02/09/2025 16:02
--- NOTE | 2025-02-09 11:28 | XR_ITS ---
[address] [address] Patient Name: TIGIST MARCIAL MRN: [id number] date: 1950 Sex: F Assigned Patient Location: [place] Current Patient Location: [place] Accession/Order Number: [id number] Exam Date: 02/09/2025 13:15 Report Date: 02/09/2025 13:39 At the request of: PETTY EVANS MD Procedure: XR elbow RT 2V XR elbow RT 2V 02/09/2025 1:28 PM SIGNS AND SYMPTOMS: Right elbow pain after fall PROTOCOL: Frontal and lateral radiographs of the right elbow COMPARISON: None FINDINGS: The bones are in anatomic alignment. There is no fracture or dislocation. No joint effusion. Soft tissue swelling is noted along the dorsal aspect of the proximal humerus. XR/XR elbow RT 2V IMPRESSION: No fracture. Soft tissue swelling is noted along the dorsum of the proximal ulna. Impression dictated by: Rogelio Madrid M.D. 02/09/2025 1:39 PM Dictation Location: [place] [address] Electronically authenticated by: [id number] Y Date: 02/09/2025 13:39
--- NOTE | 2025-02-09 11:33 | PM.HP ---
HPI H&P: HPI History of Present Illness Chief complaint: UTI Hypotensive Narrative: Mrs. Nascimento is a 74-year-old female who has been living at the nursing facility for several years due to functional disability. Patient was sent to the emergency room yesterday after she became very weak and fell on her right arm. Patient was found to have a borderline hypotension as well as acute kidney failure. She has CKD stage IV at baseline. No fever or chills. Patient was found also to have UTI. Patient could not void. Bladder scan showed 700 mL of retained urine. Patient denies any head or neck trauma. Opioid HPI Opioid Management Most Recent Pain and Opioid Data: Last Pain Scale 5 04/04/24, 12:00 Last Pain Assessment Today, 01:00 Last ORT Total Score 0 Today, 00:41 Last ORT Risk Category Low Risk Today, 00:41 Review of Systems ROS Status of ROS 10 or more systems reviewed and unremarkable except as noted in history and below [facility] Medical History (Updated 02/09/25 @ 11:37 by Kimberly Zafar MD) Acute hypoxic respiratory failure ?J96.01 - Acute respiratory failure with hypoxia (ICD-10) Atrial fibrillation ?I48.91 - Unspecified atrial fibrillation (ICD-10) Venous ulcer ?I83.009 - Varicose veins of unspecified lower extremity with ulcer of unspecified site (ICD-10) ?L97.909 - Non-pressure chronic ulcer of unspecified part of unspecified lower leg with unspecified severity (ICD-10) Bipolar disorder ?F31.9 - Bipolar disorder, unspecified (ICD-10) 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 - Syndrome of inappropriate secretion of antidiuretic hormone (ICD-10) Hyponatremia ?E87.1 - Hypo-osmolality and hyponatremia (ICD-10) Bronchitis ?J40 - Bronchitis, not specified as acute or chronic (ICD-10) Knee effusion ?M25.469 - Effusion, unspecified knee (ICD-10) Gastrointestinal hemorrhage ?K92.2 - Gastrointestinal hemorrhage, unspecified (ICD-10) Venous insufficiency ?I87.2 - Venous insufficiency (chronic) (peripheral) (ICD-10) Hypomagnesemia ?E83.42 - Hypomagnesemia (ICD-10) Acute kidney failure ?N17.9 - Acute kidney failure, unspecified (ICD-10) UTI (urinary tract infection) ?N39.0 - Urinary tract infection, site not specified (ICD-10) Cellulitis ?L03.90 - Cellulitis, unspecified (ICD-10) Encephalopathy ?G93.40 - Encephalopathy, unspecified (ICD-10) Venous ulcer of right leg ?I83.019 - Varicose veins of right lower extremity with ulcer of unspecified site (ICD-10) ?L97.919 - Non-pressure chronic ulcer of unspecified part of right lower leg with unspecified severity (ICD-10) Venous ulcer of left leg ?I83.029 - Varicose veins of left lower extremity with ulcer of unspecified site (ICD-10) ?L97.929 - Non-pressure chronic ulcer of unspecified part of left lower leg with unspecified severity (ICD-10) GERD (gastroesophageal reflux disease) ?K21.9 - Gastro-esophageal reflux disease without esophagitis (ICD-10) Paroxysmal A-fib ?I48.0 - Paroxysmal atrial fibrillation (ICD-10) Myocardial infarction ?I21.9 - Acute myocardial infarction, unspecified (ICD-10) Bipolar 1 disorder, manic, mild ?F31.11 - Bipolar disorder, current episode manic without psychotic features, mild (ICD-10) Vitamin D deficiency ?E55.9 - Vitamin D deficiency, unspecified (ICD-10) CKD (chronic kidney disease) stage 2, GFR 60-89 ml/min ?N18.2 - Chronic kidney disease, stage 2 (mild) (ICD-10) Shock therapy as the cause of abnormal reaction of patient or of later complication without misadventure at time of procedure ?Y84.3 - Shock therapy as the cause of abnormal reaction of the patient, or of later complication, without mention of misadventure at the time of the procedure (ICD-10) Normal colonoscopy Hematoma of lower leg ?S80.10XA - Contusion of unspecified lower leg, initial encounter (ICD-10) HTN (hypertension) ?I10 - Essential (primary) hypertension (ICD-10) Sarcoidosis ?D86.9 - Sarcoidosis, unspecified (ICD-10) Seizures ?R56.9 - Unspecified convulsions (ICD-10) Anemia ?D64.9 - Anemia, unspecified (ICD-10) Arthritis ?M19.90 - Unspecified osteoarthritis, unspecified site (ICD-10) Surgical History Hx of tonsillectomy ?Z90.89 - Acquired absence of other organs (ICD-10) H/O exploratory laparotomy ?Z98.890 - Other specified postprocedural states (ICD-10) Family History Mother Family history of cancer Social History Within the past year, how often did you have a drink containing alcohol: never Score interpretation: A score less than 3 is consistent with normal alcohol consumption. Smoking status: Never smoker Non-prescribed substance use: denies use Highest level of school completed/degree received: high school graduate Little interest or pleasure in doing things: not at all Feeling down, depressed, or hopeless: not at all Meds Home Medications and Allergies Home Medications ?Medication ?Instructions ?Recorded ?Confirmed ?Type apixaban 5 mg tablet (Eliquis) 5 mg PO BID 11/15/22 02/09/25 History baclofen 10 mg tablet 10 mg PO DAILY@1400 11/15/22 02/09/25 History dapagliflozin propanediol 10 mg 10 mg PO DAILY 11/15/22 02/09/25 History tablet (Farxiga) escitalopram oxalate 10 mg tablet 10 mg PO DAILY 11/15/22 02/09/25 History (Lexapro) ferrous sulfate 325 mg (65 mg 325 mg PO DAILY 11/15/22 02/09/25 History iron) tablet (Feosol) lamotrigine 150 mg tablet 150 mg PO DAILY 11/15/22 02/09/25 History losartan 25 mg tablet 25 mg PO DAILY 11/15/22 02/09/25 History multivitamin with iron 1 tab PO DAILY 11/15/22 02/09/25 History pantoprazole 40 mg tablet,delayed 40 mg PO DAILY 11/15/22 02/09/25 History release polyethylene glycol 3350 17 gram 17 g PO DAILY PRN laxative 11/15/22 02/08/25 History oral powder packet (Miralax) potassium chloride 10 mEq 10 meq PO BID 11/15/22 02/09/25 History tablet,extended release tamsulosin 0.4 mg capsule 0.4 mg PO .QHS 11/15/22 02/09/25 History baclofen 20 mg tablet 20 mg PO QAM 11/16/22 02/09/25 History acetaminophen 325 mg capsule 650 mg PO Q6H PRN pain 04/02/24 02/08/25 History donepezil 10 mg tablet (Aricept) 10 mg PO .QHS 04/02/24 02/09/25 History furosemide 20 mg tablet 60 mg PO DAILY 04/02/24 02/09/25 History olanzapine 15 mg tablet 15 mg PO .QHS 04/02/24 02/09/25 History venlafaxine 150 mg 150 mg PO DAILY 04/02/24 02/09/25 History capsule,extended release 24 hr (Effexor XR) spironolactone 25 mg tablet 12.5 mg (1/2 x 25 mg) PO DAILY #30 01/10/25 02/09/25 Rx tabs ciprofloxacin HCl 500 mg tablet 500 mg PO BID 02/08/25 02/09/25 History (Cipro) carvedilol 25 mg tablet (Coreg) 25 mg PO BID 02/09/25 02/09/25 History clonazepam 0.5 mg tablet 0.5 mg PO TID 02/09/25 02/09/25 History fentanyl 50 mcg/hr transdermal 1 patch transdermal Q72H 02/09/25 02/09/25 History patch hydrocodone 7.5 mg-acetaminophen 1 tab PO Q8H PRN PAIN 7-10 02/09/25 02/09/25 History 325 mg tablet Allergies Allergy/AdvReac Type Severity Reaction Status Date / Time cephalexin Allergy Unknown Verified 02/08/25 21:32 Exam Narrative Exam Narrative: Morbidly obese. Patient is lying in bed. Able to answer simple questions. Slow to process information and again the answer. Morbidly obese. Able to lift upper arms against resistance. Barely able to lift upper legs against gravity. Bilateral lower extremities hyperpigmentation, scaling and erythema suggestive of chronic dermatitis. No tenderness or swelling in both calves. Chest is clear, heart is regular. Abdomen is soft, nontender. Increased abdominal girth therefore clinically I could not exclude the possibility of intra-abdominal mass or organomegaly. Constitutional Vital Signs, click to edit/add: Last Vital Signs Temp 98.4 F 02/09/25 09:16 Pulse 69 02/09/25 09:58 Resp 14 02/09/25 09:16 BP 111/76 02/09/25 09:16 Pulse Ox 91 L 02/09/25 09:16 O2 Del Method Room Air 02/09/25 09:16 O2 Flow Rate 2 02/08/25 22:00 Results Labs Labs: Short CBC 02/08/25 02/09/25 Range/Units 21:50 06:02 WBC 9.8 8.8 (4.0-11.0) 10^3/uL Hgb 11.9 L 11.4 L (12.0-16.0) g/dL Hct 35.8 L 34.6 L (36.0-48.0) % Plt Count 169 160 (150-450) 10^3/uL BMP 02/08/25 02/09/25 21:50 06:02 Sodium 139 142 Potassium 3.8 3.6 Chloride 100 102 Carbon Dioxide 28.1 28.3 BUN 24.0 H 22.0 H Creatinine 2.39 H 2.19 H Glucose 133 H 100 Calcium 9.3 8.9 Urine 02/08/25 Range/Units 22:15 Urine Color Lt. yellow (YELLOW) Urine Clarity Clear (CLEAR) Urine pH 6.0 (5.0-9.0) Ur Specific [place] <=1.005 A (1.005-1.025) Urine Protein Negative (NEG/TRACE) mg/dL Urine Glucose (UA) 250 A (NEGATIVE) mg/dL Assessment and Plan Assessment and Plan (1) Acute UTI: (2) Acute renal failure (ARF): (3) Hypotension: (4) Chronic anticoagulation: (5) Obesity: Qualifiers: Obesity type: due to excess calories Obesity classification: adult class 2 (BMI 35 - 39.9) Serious obesity comorbidity presence: with serious comorbidity Body mass index: BMI 39.0-39.9 Qualified Code(s): E66.812 - Obesity, class 2; E66.01 - Morbid (severe) obesity due to excess calories; Z68.39 - Body mass index [BMI] 39.0-39.9, adult (6) Multifactorial functional impairment: (7) CKD (chronic kidney disease), stage IV: (8) Urinary retention: (9) History of atrial fibrillation: (10) Contusion of elbow: (11) Chronic venous stasis dermatitis of lower extremity: Plan ASHLEY associated with hypotension Likely secondary to hemodynamic shift, dehydration and volume loss. Furthermore, patient had urinary retention more than 700 mL. Suspect an element of obstructive uropathy. Forte catheter was placed and. Patient was started on IV fluid infusion. Urine and blood cultures pending CT scan of the abdomen pelvis to rule out mechanical obstructive uropathy and/or hydronephrosis. UTI with urinary retention, more than 700 mL Forte catheter was placed and. Urine culture is pending. I started patient empirically on Levaquin. Patient apparently is off amiodarone therefore the risk of QT prolongation is not high. Functional disability. Patient has a walker at the nursing facility. She has been there for several years. Falls. Likely caused by morbid obesity, deconditioning, osteoarthritis and an inability to support her body. PT OT eval and treatment. I suspect that the patient is at baseline. Patient is to return to the facility. History of A-fib. Patient has a pacemaker. Paced rhythm. Continue Eliquis. Continue Coreg. I reduced the dose due to borderline hypotension. Anemia, no evidence of acute blood loss. Patient will likely require to have anemia workup to be done in the outpatient setting to be handled by PCP in collaboration with other needed outpatient providers. This may include but not limited to EGD, colonoscopy, referral to see hematology and other needed age-appropriate cancer screening. Elbow contusion X-ray rule out fracture Dementia, on Aricept Chronic medical conditions not listed above, incidental findings seen on labs and imaging. These would need to be addressed. Could be addressed when time and condition are appropriate. Could be addressed in the outpatient setting by PCP collaboration with other needed outpatient providers. Urinary Catheter Management Urinary Catheter Management Straight: Cath placed during this visit: yes Urethral indwelling: No Insertion date: 02/09/25 Insertion time: 05:40
[2025-02-09] MEDS: POTASSIUM CHLORIDE 10 MEQ ER TABLET 40 MEQ PO (13:00)
[2025-02-09] MEDS: FENTANYL 25 MCG/HR PATCH.TD72 TD (13:00)
[2025-02-09] MEDS: 0.9 % SODIUM CHLORIDE 1,000 ML 70 ML IV (13:00)
[2025-02-09] MEDS: LEVOFLOXACIN IN DEXTROSE 5 % 250 MG/50 ML PREMIX 50 MG IV (13:00)
[2025-02-09] MEDS: VENLAFAXINE HCL ER 150 MG CAPSULE PO (13:00)
[2025-02-09] MEDS: APIXABAN 5 MG TABLET PO ×2 (13:01→21:11)
[2025-02-09] MEDS: ESCITALOPRAM 10 MG TABLET PO (13:01)
[2025-02-09] MEDS: LAMOTRIGINE 100 MG TABLET PO (13:01)
[2025-02-09] MEDS: LAMOTRIGINE 25 MG TABLET 50 MG PO (13:01)
[2025-02-09] MEDS: CARVEDILOL 12.5 MG TABLET PO (21:11)
[2025-02-09] MEDS: TAMSULOSIN HCL 0.4 MG CAPSULE PO (21:11)
[2025-02-09] MEDS: DONEPEZIL HCL 10 MG TABLET PO (21:11)
[2025-02-10] VITALS (10 sets, daily range): BP systolic 114–149; BP diastolic 64–89; PULSE 60–98; TEMP 36.4–37.1; O2SAT 87–91
[2025-02-10] MEDS: PANTOPRAZOLE SODIUM 40 MG TABLET.DR PO (05:37)
[2025-02-10] MEDS: 0.9 % SODIUM CHLORIDE 1,000 ML 70 ML IV (05:41)
[2025-02-10 06:35] LABS: Albumin Globulin Ratio 0.7; Albumin Level 2.7 g/dL (3.4-5.0); Alkaline Phosphatase 74 U/L (46-116); Anion Gap 13.6; Aspartate Amino Transferase 17 U/L (15-37); Blood Urea Nitrogen 16.0 mg/dL (7.0-18.0); Calcium 8.5 mg/dL (8.5-10.1); Carbon Dioxide 25.5 mmol/L (21.0-32.0); Chloride 107 mmol/L (98-107); Estimated GFR (African America 36 (>=60 mL/min/1.73m^2); Estimated GFR (Non-African Ame 30 (>=60 mL/min/1.73m^2); Globulin 3.9 g/dL; Glucose 90 mg/dL (74-106); Magnesium 2.0 mg/dL (1.8-2.4); Potassium 4.1 mmol/L (3.5-5.1); Sodium 142 mmol/L (136-145); Total Protein 6.6 g/dL (6.4-8.2)
[2025-02-10 06:36] LABS: Alanine Aminotransferase <6 U/L (14-59)
[2025-02-10] MEDS: VENLAFAXINE HCL ER 150 MG CAPSULE PO (08:29)
[2025-02-10] MEDS: APIXABAN 5 MG TABLET PO ×2 (08:29→21:40)
[2025-02-10] MEDS: FERROUS SULFATE 325 MG TABLET PO (08:29)
[2025-02-10] MEDS: LAMOTRIGINE 100 MG TABLET PO (08:29)
[2025-02-10] MEDS: ESCITALOPRAM 10 MG TABLET PO (08:29)
[2025-02-10] MEDS: CARVEDILOL 12.5 MG TABLET PO ×2 (08:29→21:40)
[2025-02-10] MEDS: LAMOTRIGINE 25 MG TABLET 50 MG PO (08:29)
--- NOTE | 2025-02-10 10:39 | P.PN_ITS ---
Progress Note: Subjective Subjective Interval history: Patient is doing and feeling much better. She is much awake and alert compared to yesterday. Able to stand up and ambulate to the bathroom using walker and nursing help. No chest or abdominal pain. No nausea or vomiting. Exam Narrative Exam Narrative: Morbidly obese. Patient was able to ambulate to the bathroom and walked back to sit in the chair. She is using a walker and her nurse was helping her. Able to answer simple questions. Slow to process information and again the answer. Morbidly obese. Able to lift upper arms against resistance. Barely able to lift upper legs against gravity. Bilateral lower extremities hyperpigmentation, scaling and erythema suggestive of chronic dermatitis. No tenderness or swelling in both calves. Chest is clear, heart is regular. Abdomen is soft, nontender. Increased abdominal girth therefore clinically I could not exclude the possibility of intra-abdominal mass or organomegaly. Constitutional Vital Signs, click to edit/add: Last Vital Signs Temp 98.3 F 02/10/25 08:00 Pulse 82 02/10/25 08:00 Resp 16 02/10/25 08:00 BP 148/66 H 02/10/25 08:00 Pulse Ox 91 L 02/10/25 08:00 O2 Del Method Room Air 02/10/25 08:00 O2 Flow Rate 2 02/08/25 22:00 Progress Note: Objective Labs Labs: [facility] [place] 02/10/25 06:07 Sodium 142 Potassium 4.1 Chloride 107 Carbon Dioxide 25.5 BUN 16.0 Creatinine 1.67 H Glucose 90 Calcium 8.5 Liver Function 02/10/25 Range/Units 06:07 Total Bilirubin 0.6 (0.2-1.0) mg/dL AST 17 (15-37) U/L ALT <6 L (14-59) U/L Alkaline Phosphatase 74 (46-116) U/L Albumin 2.7 L (3.4-5.0) g/dL Progress Note: A&P Assessment and Plan (1) Acute UTI: (2) Acute renal failure (ARF): (3) Hypotension: (4) Chronic anticoagulation: (5) Obesity: Qualifiers: Obesity type: due to excess calories Obesity classification: adult class 2 (BMI 35 - 39.9) Serious obesity comorbidity presence: with serious comorbidity Body mass index: BMI 39.0-39.9 Qualified Code(s): E66.812 - Obesity, class 2; E66.01 - Morbid (severe) obesity due to excess calories; Z68.39 - Body mass index [BMI] 39.0-39.9, adult (6) Multifactorial functional impairment: (7) CKD (chronic kidney disease), stage IV: (8) Urinary retention: (9) History of atrial fibrillation: (10) Contusion of elbow: (11) Chronic venous stasis dermatitis of lower extremity: Plan ASHLEY associated with hypotension, resolved. CKD stage III borderline stage IV. Likely secondary to hemodynamic shift, dehydration and volume loss. Furthermore, patient had urinary retention more than 700 mL. Suspect an element of obstructive uropathy. Forte catheter was placed and. Patient was started on IV fluid infusion. CT scan does not show any obstructive uropathy. Kidney function is back to baseline state with a creatinine of around 1.6 and creatinine clearance around 30 UTI with urinary retention, more than 700 mL. Forte catheter was placed and. Urine culture is pending. I started patient empirically on Levaquin. Patient is allergic to cephalosporin patient apparently is off amiodarone therefore the risk of QT prolongation is not high. Constipation, stool impaction seen on CT. Could be opiate induced ileus. Patient is on a fentanyl patch This had responded to Relistor, laxatives and stimulants. Patient had large bowel movement this morning. Continue stool softeners and stimulant while patient is on fentanyl patch. Functional disability. Patient has a walker at the nursing facility. She has been there for several years. Falls. Likely caused by morbid obesity, deconditioning, osteoarthritis and an inability to support her body. PT OT eval and treatment. I suspect that the patient is at baseline. Patient is to return to the facility. History of A-fib. Patient has a pacemaker. Paced rhythm. Continue Eliquis. Continue Coreg. I reduced the dose due to borderline hypotension. Anemia, no evidence of acute blood loss. Patient will likely require to have anemia workup to be done in the outpatient setting to be handled by PCP in collaboration with other needed outpatient providers. This may include but not limited to EGD, colonoscopy, referral to see hematology and other needed age-appropriate cancer screening. Elbow contusion X-ray rule out fracture. X-ray does not show any fracture but positive for soft tissue swelling. Dementia, on Aricept Chronic medical conditions not listed above, incidental findings seen on labs and imaging. These would need to be addressed. Could be addressed when time and condition are appropriate. Could be addressed in the outpatient setting by PCP collaboration with other needed outpatient providers. Urinary Catheter Management Urinary Catheter Management Straight: Cath placed during this visit: yes Urethral indwelling: No Insertion date: 02/09/25 Insertion time: 05:40
[2025-02-10] MEDS: LEVOFLOXACIN IN DEXTROSE 5 % 250 MG/50 ML PREMIX 50 MG IV (13:06)
[2025-02-10] MEDS: ERTAPENEM SODIUM 1,000 MG VIAL 0.5 GM IM (21:40)
[2025-02-10] MEDS: DONEPEZIL HCL 10 MG TABLET PO (21:40)
[2025-02-10] MEDS: TAMSULOSIN HCL 0.4 MG CAPSULE PO (21:40)
[2025-02-10] MEDS: OXYCODONE HCL/ACETAMINOPHEN 5MG/325MG 1 TAB PO (22:11)
[2025-02-11 03:36] VITALS: BP 97/69; PULSE 69; TEMP 36.6; O2SAT 90
[2025-02-11] MEDS: PANTOPRAZOLE SODIUM 40 MG TABLET.DR PO (05:40)
[2025-02-11 07:32] VITALS: BP 123/73; PULSE 70; TEMP 36.6; O2SAT 90
[2025-02-11] MEDS: VENLAFAXINE HCL ER 150 MG CAPSULE PO (09:21)
[2025-02-11] MEDS: FERROUS SULFATE 325 MG TABLET PO (09:22)
[2025-02-11] MEDS: LAMOTRIGINE 100 MG TABLET PO (09:22)
[2025-02-11] MEDS: ESCITALOPRAM 10 MG TABLET PO (09:22)
[2025-02-11] MEDS: LAMOTRIGINE 25 MG TABLET 50 MG PO (09:22)
[2025-02-11] MEDS: LEVOFLOXACIN 500 MG TABLET 250 MG PO (09:22)
[2025-02-11] MEDS: CARVEDILOL 12.5 MG TABLET PO (09:22)
[2025-02-11] MEDS: SENNOSIDES/DOCUSATE SODIUM 1 TAB TABLET 2 TAB PO (09:22)
[2025-02-11] MEDS: APIXABAN 5 MG TABLET PO (09:23)
[2025-02-11] MEDS: OXYCODONE HCL/ACETAMINOPHEN 5MG/325MG 1 TAB PO (09:25)
--- NOTE | 2025-02-11 09:30 | CM.NOTE ---
Rounds made with Dr. Barrera, pt will get repeat chest x-ray today. Possible discharge this afternoon back to [facility].
--- NOTE | 2025-02-11 09:40 | XR_ITS ---
XR/XR chest 1V IMPRESSION: CARDIOMEGALY. LEFT BASILAR PARENCHYMAL CHANGE. Impression dictated by: Kiersten Tirado M.D. 02/11/2025 10:42 AM Dictation Location: [place] [address] Electronically authenticated by: [id number] Y Date: 02/11/2025 10:42
[2025-02-11] MEDS: FUROSEMIDE 20 MG TABLET 60 MG PO (10:30)
--- NOTE | 2025-02-11 11:34 | REH.PTDLY ---
Physical Therapy Daily Note PT Daily Note/Assess Start: 02/11/25 11:26 Freq: Status: Active Protocol: Document 02/11/25 11:26 KHADRASHYANN (Rec: 02/11/25 11:34 KSTEINJEFFERSON [id number]) Physical Therapy Daily Note/Assessment Time In 10:25 Time Out 10:51 Subjective Pt up in chair upon arrival, pt states she is going back to [facility] today hopefully. Pt denies pain as she just had a pain pill she reports. Therapeutic Exercise 8 Minutes (minutes) Therapeutic Exercise 1 Units Therapeutic Exercise instructed in Ross LE exs 10x ea with cues for pt to Treatment stay on task, demo as well. Instructed pt in Ross AP, LAQ, marching, hip abd, and hip add squeeze for improved strength to ease transfers and gait. Therapeutic Activity 16 Minutes (minutes) Therapeutic Activity 1 Units Therapeutic Activity Instructed in sit to stand transfers with cues for pt Comments to lean forward and push from chair arms. Pt unable to stand with Max A x1. With assist from nursing, pt is able to stand Mod A x2. Gait training with O2 on and RW 20 feet CGA x1 with heavy cues when turning and when stepping back to chair. Pt stood statically while nursing took chris out x2 mins. Pt sat down and then needed assist x2 to stand again with assistance to done brief. Total Therapy 24 Minutes Total Physical 2 Therapy Units Daily Note Summary Pt will need SNF stay for continued therapy as pt requires 2 assist with transfers from chair this morning. Pt also fatigues easily with short distance gait. Heavy cues needed at times for pt understanding when returning to sit, as pt wants to sit down prior to be in the proper position. Pt denies any increase in pain post rx.
[2025-02-11 12:00] VITALS: BP 109/75; PULSE 82; TEMP 36.7; O2SAT 88
--- NOTE | 2025-02-11 12:01 | SWNOTE1 ---
Important Message from [employer] reviewed and discussed with patient and with pt's sister, Ellen Bro on the phone. They both verbalized understanding and SW signed the form that it was reviewed. Original placed in pt's room and copy placed in patient?s chart.
--- NOTE | 2025-02-11 12:01 | SWNOTE1 ---
RAMBO spoke with pt in the room. Pt is from the [facility] and she did voice she will return to [facility]. RAMBO did review IMM paper with pt and she wants SW to call her sister Ellen. RAMBO spoke to her sister on phone in the pt's room. SW did review with her as well. Ellen also asked about teeth x rays and plastic in her teeth. RAMBO advised Ellen that SW is not sure about this? Ellen asked if SW would send back information from her stay about this. RAMBO advised if there is concerns or follow up in regards to plastic in teeth it will be documented. Ellen did talk about [facility] coming in to see pt at [facility] and pt getting xray with them. SW to reach out to Michelle and Nasir at [facility] about [facility]. Ellen did provide dentist name of who pt used to see, Dr. Barrett. RAMBO provided dentist name and number to nurse. RAMBO emailed Nasir and Michelle at [facility] to see if [facility] can do xrays of teeth. RAMBO called and spoke to Nasir at [facility] and let her know possible discharge later today after x-ray if clear.
[2025-02-11 13:00] VITALS: O2SAT 92
--- NOTE | 2025-02-11 13:56 | SWNOTE1 ---
Pt is stable for discharge today. RAMBO reached out to Michelle at [facility] to see if they have transportation. Michelle let RAMBO know that they can be there shortly. RAMBO called the nurse and nurse was alright with transport coming soon. RAMBO faxed updates including face sheet, ED note, all physician notes, PT/OT, nursing notes, vitals, labs, and diagnostic imaging. RAMBO also faxed dc med rec. RAMBO took packet to med/surge floor as well.
--- NOTE | 2025-02-12 10:30 | P.DS_ITS ---
DS: Providers Provider Date of admission: 02/11/25 08:39 Primary care physician: Benjamín Navarrete MD Consults: 02/08/25 23:59 Occupational Therapy Eval and Treat Routine Reason for consultation: Weakness Physical Therapy Eval and Treat Routine Reason for consultation: Weakness 02/09/25 11:28 Occupational Therapy Eval and Treat Routine Reason for consultation: Weakness Physical Therapy Eval and Treat Routine Reason for consultation: Weakness Attending physician on discharge: LIDIA ANDERSON DS: Diagnosis Discharge Diagnosis (1) Acute UTI: (2) Acute renal failure (ARF): (3) Hypotension: (4) Chronic anticoagulation: (5) Obesity: Qualifiers: Obesity type: due to excess calories Obesity classification: adult class 2 (BMI 35 - 39.9) Serious obesity comorbidity presence: with serious comorbidity Body mass index: BMI 39.0-39.9 Qualified Code(s): E66.812 - Obesity, class 2; E66.01 - Morbid (severe) obesity due to excess calories; Z68.39 - Body mass index [BMI] 39.0-39.9, adult (6) Multifactorial functional impairment: (7) CKD (chronic kidney disease), stage IV: (8) Urinary retention: (9) History of atrial fibrillation: (10) Contusion of elbow: (11) 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 She was found to have a urinary tract infection, acute urinary retention and ASHLEY as well as hypotension. The ASHLEY was likely secondary to obstructive process from her acute urinary retention. An x-ray of her left elbow was obtained and ruled out any signs of fracture. Her renal function was 2.4 in admission, her baseline is 1.5. She received IV fluids for the ASHLEY secondary to her postobstructive process. Her creatinine did improve nicely with this. Her diarrhea's were held and she was given IV fluids. She was started on Levaquin for her urinary tract infection. The afternoon of February 11, the patient was hemodynamically stable, her blood pressure normalized, I did resume her Lasix to avoid any signs of CHF given her history of volume overload in the past. She was discharged from the hospital the afternoon of January 11 back to nursing facility with the Forte catheter in as is the second time she has been hospitalized for acute urinary retention. Time Spent with Patient Time attestation: Total time spent providing and/or coordinating discharge services: Exam Narrative Exam Narrative: General: Awake and alert, stoic HEENT: Normocephalic, atraumatic, no scleral icterus noted Lungs: Clear to auscultation bilaterally Cardiac: Regular rate and rhythm, no murmurs appreciated GI: Soft, nontender, obese, regular bowel sounds. Extremities: Active and passive range of motion intact throughout, some pain on her left elbow, full range of motion. Neuro: Cranial nerves II through XII intact, no focal deficits noted Skin: No rashes or lesions, no signs of jaundice Constitutional Vital Signs, click to edit/add: Last Vital Signs Temp 98.0 F 02/11/25 12:00 Pulse 82 02/11/25 12:00 Resp 16 02/11/25 12:00 BP 109/75 02/11/25 12:00 Pulse Ox 92 L 02/11/25 13:00 O2 Del Method Nasal Cannula 02/11/25 13:00 O2 Flow Rate 1 02/11/25 13:00 DS: Data Data Completed and Pending Labs on day of discharge: Preliminary micro results at discharge 02/08/25 22:15 Urine Culture - Preliminary Urine,Clean Catch Pending - Specimen sent to [facility] 02/08/25 21:57 Blood Culture Result 2 - Preliminary Blood - Left Antecubital NO GROWTH AT 36-48 HOURS. FINAL TO FOLLOW. 02/08/25 21:50 Blood Culture Result 1 - Preliminary Blood - Right Antecubital NO GROWTH AT 36-48 HOURS. FINAL TO FOLLOW. Discharge Plan Discharge Disposition: Xfer SNF Discharge Medications: New carvedilol 12.5 mg Tablet 12.5 mg PO BID Qty: 30 0RF sennosides-docusate sodium [Senna Plus] 8.6-50 mg Tablet 2 tab PO QD 3 Days Qty: 6 0RF levofloxacin 500 mg Tablet 250 mg PO QD 4 Days Qty: 4 0RF Continued Eliquis 5 mg tablet 5 mg PO BID baclofen 10 mg tablet 10 mg PO DAILY@1400 dapagliflozin propanediol [Farxiga] 10 mg tablet 10 mg PO DAILY ferrous sulfate [Feosol] 325 mg (65 mg iron) tablet 325 mg PO DAILY lamotrigine 150 mg tablet 150 mg PO DAILY escitalopram oxalate [Lexapro] 10 mg tablet 10 mg PO DAILY multivitamin with iron Tablet 1 tab PO DAILY pantoprazole 40 mg tablet,delayed release (DR/EC) 40 mg PO DAILY polyethylene glycol 3350 [Miralax] 17 gram powder in packet 17 g PO DAILY PRN (Reason: laxative) potassium chloride 10 mEq tablet extended release 10 meq PO BID tamsulosin 0.4 mg capsule 0.4 mg PO .QHS baclofen 20 mg tablet 20 mg PO QAM donepezil [Aricept] 10 mg tablet 10 mg PO .QHS furosemide 20 mg tablet 60 mg PO DAILY olanzapine 15 mg tablet 15 mg PO .QHS venlafaxine [Effexor XR] 150 mg capsule,extended release 24hr 150 mg PO DAILY acetaminophen 325 mg capsule 650 mg PO Q6H PRN (Reason: pain) spironolactone 25 mg tablet 12.5 mg PO DAILY Qty: 30 0RF clonazepam 0.5 mg tablet 0.5 mg PO TID fentanyl 50 mcg/hr patch 72 hour 1 patch transdermal Q72H 3 Days Qty: 1 0RF Changed hydrocodone-acetaminophen 7.5-325 mg tablet 1 tab PO Q8H PRN (Reason: PAIN 7-10) 3 Days Qty: 9 0RF Discontinued losartan 25 mg tablet 25 mg PO DAILY ciprofloxacin HCl [Cipro] 500 mg tablet 500 mg PO BID Patient Comments: 02/08/25-02/17/25 carvedilol [Coreg] 25 mg tablet 25 mg PO BID Rx Instructions: must administer with a meal/food Print Language: [place] 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
== END 2025-02-11 13:45 | DRG 683 ==
LOC: ER 22:58 → MS 02-09 00:31
PROVIDERS: Internal Medicine; Admitting Provider Internal Medicine; Emergency Provider Internal Medicine; PCP Family Medicine; Visit Provider Internal Medicine
DX: N17.9 Acute kidney failure, unspecified (principal); N39.0 Urinary tract infection, site not specified; R33.9 Retention of urine, unspecified; N18.4 Chronic kidney disease, stage 4 (severe); I95.9 Hypotension, unspecified; F31.9 Bipolar disorder, unspecified; Z87.440 Personal history of urinary (tract) infections; K21.9 Gastro-esophageal reflux disease without esophagitis; I48.0 Paroxysmal atrial fibrillation; I25.2 Old myocardial infarction; I12.9 Hypertensive chronic kidney disease with stage 1 through stage 4 chronic kidney disease, or unspecified chronic kidney disease; R56.9 Unspecified convulsions; M19.90 Unspecified osteoarthritis, unspecified site; Z79.01 Long term (current) use of anticoagulants; Z79.899 Other long term (current) drug therapy; E66.01 Morbid (severe) obesity due to excess calories; Z68.39 Body mass index [BMI] 39.0-39.9, adult; E66.812 Obesity, class 2; F03.90 Unspecified dementia, unspecified severity, without behavioral disturbance, psychotic disturbance, mood disturbance, and anxiety; D64.9 Anemia, unspecified; E86.0 Dehydration; K59.00 Constipation, unspecified; Z91.81 History of falling; Z95.0 Presence of cardiac pacemaker; S50.01XA Contusion of right elbow, initial encounter; W18.39XA Other fall on same level, initial encounter; I87.2 Venous insufficiency (chronic) (peripheral)
CPT/HCPCS: 36415; 51702; 51798; 70450; 71045; 72125; 73070; 74176; 80048; 80053; 81001; 83605; 83735; 84484; 85025; 85027; 87040; 87086; 93005; 96361; 96365; 97110; 97161; 97165; 97530; 97535; 99285; J0744; J1335; J1956

== ENCOUNTER 2025-02-21 14:20 | Emergency (ER) | payer MEDICARE, OTHER, MEDICAID, SELFPAY ==
[2025-02-21] VITALS (30 sets, daily range): BP systolic 175–193; BP diastolic 84–112; PULSE 69–86; TEMP 37.1; O2SAT 93–98; BMI 36.6
--- NOTE | 2025-02-21 14:31 | ECG_ITS ---
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
--- NOTE | 2025-02-21 14:31 | XR_ITS ---
[address] [address] Patient Name: TIGIST MARCIAL MRN: [id number] date: 1950 Sex: F Assigned Patient Location: ER Current Patient Location: ER Accession/Order Number: [id number] Exam Date: 02/21/2025 14:50 Report Date: 02/21/2025 15:21 At the request of: ISAIAS PHILLIPS MD Procedure: XR chest 1V PA CHEST: CLINICAL HISTORY: covid hx COMPARISON: 02/11/2025 Left-sided pacemaker device. Enlarged cardiomediastinal silhouette with mild prominence of the perihilar vasculature within the central congestion. Lungs otherwise clear. No effusion or pneumothorax. XR/XR chest 1V IMPRESSION: Cardiac megaly. No definite airspace disease Impression dictated by: Hudson Simmons M.D. 02/21/2025 3:21 PM Dictation Location: [place] [address] Electronically authenticated by: [id number] Y Date: 02/21/2025 15:21
--- OUTSIDE RECORDS SUMMARY | 2025-02-21 14:45 | XMS_ITS | CCD ---
Author Organization [facility] Care Team Providers Care Network Support Administrator Name Role Phone ROBERTA VELA Admitting Unavailable [...] Admitting Unavailable PAOLOANDER, PETER D Attending Unavailable HORosmery ., DR DORADO Primary Care Unavailable HOY [...] ., DR DORADO Primary Care Unavailable LEONIE WEAVER Attending Unavailable LEONIDES, LEONIE Admitting Unavailable REBECCA, DR MARINO Braswell Consulting Unavailable HOY ., DR DORADO Primary Care Unavailable PAY ., DR DING Consulting Unavailable LEONIE WEAVER Consulting Unavailable LEÓN LLAMAS Consulting Unavailable PAY [...] Unavailable AYYAGARI ., SAMINA Consulting Unavailable ISSA Carter, MIRNA Attending Unavailable SEUN .ALISON Consulting Unavailable [...] JANINE ., DR DORADO Primary Care Unavailable [place], DR RISHABH Martin Consulting Unavailable LEÓN DIAS Consulting Unavailable Arthur OLIVER, Ирина Loya Attending Unavailable Arthur OLIVER, Ирина Loya Attending Unavailable Arthur OLIVER, Ирина Loya Attending Unavailable Arthur OLIVER, Ирина Loya Attending Unavailable Ave Mehta MD Primary Care Provider Beti Ham MD Attending Provider Jarrod Mahajan Attending Unavailable Jarrod Mahajan Admitting Unavailable Cutler, Marino Consulting Unavailable Cutler, Marino Consulting Unavailable Cutler, Marino Consulting Unavailable Cutler, Marino Consulting Unavailable Cutler, Marino Consulting Unavailable Cutler, Marino Consulting Unavailable Cutler, Marino Consulting Unavailable Cutler, Marino Consulting Unavailable Cutler, Marino Consulting Unavailable [facility] Wound, XXXX Consulting Unavailable [facility] Wound, XXXX Consulting Unavailable Jarrod Mahajan Admitting Unavailable Jarrod Mahajan Attending Unavailable ENOCH FRANKEL Referring Unavailable ENOCH FRANKEL Attending Unavailable ENOCH FRANKEL Referring Unavailable JOSTIN, ENOCH Attending Unavailable ENOCH FRANKEL Referring Unavailable JOSTIN, ENOCH Referring Unavailable JOSTIN, ENOCH Referring Unavailable Ave Mehta MD Primary Care Provider [phone] Kristen White DO Attending Provider Leonie Weaver MD Attending Provider Ave Mehta Primary Care Unavailable Leonie Weaver Attending Unavailable Leonie Weaver Admitting Unavailable Beti Ham Attending Unavailable Beti Ham Admitting Unavailable Ave Mehta Primary Care Unavailable Allergies Allergy Classification Reported Allergen(s) Allergy Type Date of Onset Reaction(s) Facility (6 sources) Dust; Translations: [Dust] Propensity to adverse reactions (disorder) [facility] Repository (6 sources) Pollen; Translations: [Pollen] Propensity to adverse reactions (disorder) [facility] Repository (1 source) Cephalexin; Translations: [CEPHALEXIN] Drug Allergy 4 [facility] Repository (1 source) house dust allergenic extract; Translations: [HOUSE DUST] Drug Allergy 4 [facility] Repository (1 source) Pollen; Translations: [POLLEN EXTRACTS] Propensity to adverse reactions to drug (disorder) 4 [facility] Repository Medications Current Medications Medication Drug Class(es) Dates Sig (Normalized) Sig (Original) acetaminophen 500 mg oral tablet (13 sources) take 2 tablets by mouth every eight hours as needed [facility] Acetaminophen [facility] 500 MG TAKE 2 TABLETS BY MOUTH EVERY 8 HOURS NEEDED for 30 Active acetaminophen 325 mg / HYDROcodone bitartrate 10 mg oral tablet (15 sources) Opioid Agonist Start: 11-04-2021 End: 11-09-2021 take 1 tablet by mouth every eight hours as needed for pain Start: 11-03-2021 take 1 tablet by brynn th every eight hours HYDROcodone-Acetaminophen 5-325 MG 1 tab let as needed Orally every 8 hrs for 7 days October, Active alendronic acid 70 mg oral tablet (3 sources) Bisphosphonate Start: 06-03-2020 aspirin 81 mg chewable tablet (16 sources) Platelet Aggregation Inhibitor, Nonsteroidal Anti-inflammatory Drug Start: 06-03-2020 take 1 tablet by mouth once daily take 1 tablet by mouth once dayton y Aspirin 81 81 MG 1 tablet Orally Once a day Active baclofen 10 mg oral tablet (9 sources) gamma-Aminobutyric Acid-ergic Agonist Start: 11-04-2021 take 1 tablet by mouth once daily take 1 tablet by mouth every twe lve hours Baclofen 10 MG 1 tablet as needed Orally Twice a day Active buPROPion hydrochloride 100 mg oral tablet (16 sources) Aminoketone Start: 06-04-2020 take 1 tablet by brynn th twice daily busPIRone hydrochloride 15 m g oral tablet (16 sources) Start: 06-03-2020 take 1 tablet by [...] Jul, Active carvedilol 25 mg oral tablet (19 sources) alpha-Adrenerg ic Marah, beta-Adrenergi c Marah [...] October, Active cholecalciferol 0.125 mg oral tablet (3 sources) Vitamin D Start: 06-03-2020 take 1 tablet by mouth once daily clonazePAM 0.5 mg oral tablet (20 sources) Benzodiazepine Start: 11-04-2021 End: 11-09-2021 take 1 tablet by mouth three times daily Start: 06-08-2020 End: 11-04-2021 take 1 tablet by mouth twice daily Clonazepam (Klonopin) 0.5 mg tablet Discontinued 0.5 MG PO Twice daily 6 3 June 08, 2020 1:26pm November 04, 2021 12:18pm [...] sodium 75 mg delayed release oral tablet (16 sources) Nonsteroidal Anti-inflammatory Drug Start: 06-03-2020 take 1 tablet by mouth twice daily ferrous sulfate 325 mg oral tablet (19 sources) Start: 11-08-2021 Start: 06-03-2020 End: 11-08-2021 take 1 tablet by mouth twice daily Ferrous Sulfate 325 mg (65 mg iron) Tablet Discontinued 325 MG PO Twice daily June 03, 2020 1:00am November 08, 2021 1:07pm QOD take 1 tablet by brynn th every twenty-four hours Iron 325 (65 Fe) MG 1 tablet Orally Once a day Active FLUoxetine 20 mg oral capsule (6 sources) Serotonin Reuptake Inhibitor Start: 11-04-2021 take 3 capsules by mouth once daily Start: 06-03-2020 End: 11-04-2021 take 1 capsule by mouth once daily Fluoxetine 40 mg capsule Discontinued 40 MG PO Daily June 03, 2020 1:00am November 04, 2021 12:18pm furosemide 40 mg oral tablet (6 sources) Loop Diuretic Start: 11-04-2021 take 1 tablet by brynn th once daily Start: 06-03-2020 End: 11-04-2021 Furosemide 20 mg tablet Disc ontinued 20 MG PO Use as Directed June 03, 2020 1:00am November 04, 2021 12:18pm gabapentin 300 mg oral capsule (13 sources) Anti-epileptic Agent Start: 10-28-2021 take 1 tablet by mouth twice daily Start: 10-28-2021 take 2 capsules by out every twelve hours Gabapentin 300 MG 2 capsule Orally BID for 30 day(s) October, Active hydrALAZINE hydrochloride 50 mg oral tablet (16 sources) Arteriolar Vasodilator Start: 11-04-2021 take 1 tablet by mouth three times daily take 1 tablet by brynn th every eight hours hydrALAZINE HCl 25 MG 1 tablet with food Orally Three times a day Active lamoTRIgine 100 mg oral tablet (3 sources) Mood Stabilizer, Anti-epileptic Agent Start: 06-03-2020 take 2 tablets by mouth once daily at bedtime losartan potassium 100 mg oral tablet (3 sources) Angiotensin 2 Receptor Marah Start: 11-04-2021 take 1 tablet by mouth once daily OLANZapine 10 mg oral tablet (3 sources) Atypical Antipsychotic Start: 06-03-2020 take 1 tablet by mouth at bedtime omeprazole 20 mg delayed release oral capsule (3 sources) Proton Pump Inhibitor Start: 11-04-2021 take 2 capsules by mouth twice daily microencapsulated potassium chloride 10 meq extended release oral tablet (3 sources) Start: 11-04-2021 take 1 tablet by mouth twice daily pravastatin sodium 20 mg oral tablet (3 sources) HMG-CoA Reductase Inhibitor Start: 06-03-2020 take 1 tablet by mouth once daily tamsulosin hydrochloride 0.4 mg oral capsule (3 sources) alpha-Adrenergic Marah Start: 11-04-2021 take 1 capsule by mouth once daily tiZANidine 4 mg oral tablet (16 sources) Central alpha-2 Adrenergic Agonist Start: 06-03-2020 [...] Sig (Original) amLODIPine 10 mg oral tablet (16 sources) Dihydropyridine Calcium Channel Marah Start: 06-03-2020 End: 11-04-2021 take 1 tablet by mouth once daily Amlodipine (Norvasc) 10 mg tablet Discontinued 10 MG PO Daily June 03, 2020 1:00am November 04, 2021 12:18pm take 1 tablet by brynn th every twenty-four hours amLODIPine Besylate 5 MG 1 tablet Orally Once a day Active irbesartan 300 mg oral tablet (3 sources) Angiotensin 2 Receptor Marah Start: 06-03-2020 End: 11-04-2021 take 1 tablet by mouth once daily Irbesartan 300 mg tablet Discontinued 300 MG PO Daily June 03, 2020 1:00am November 04, 2021 12:18pm ketorolac tromethamine 4 mg/ml ophthalmic solution (3 sources) Nonsteroidal Anti-inflammatory Drug, Cyclooxygenase Inhibitor Start: [...] 03, 2020 12:00am November 04, 2021 11:18am loperamide hydrochloride 2 mg / simethicone 125 mg oral tablet (3 sources) Opioid Agonist Start: 06-03-2020 End: 11-04-2021 take 1 tablet by mouth every four hours as needed for diarrhea Loperamide-Simethicone 2-125 mg Tablet Discontinued 1 TAB PO Every 4 hours as needed for Diarrhea June 03, 2020 1:00am November 04, 2021 12:18pm Start: 06-03-2020 End: 11-04-2021 take 1 tablet by mouth every four hours as needed for diarrhea Loperamide-Simethicone 2-125 mg Tablet Discontinued 1 TAB PO Every 4 hours as needed for Diarrhea June 03, 2020 12:00November 04, 2021 11:18am oxyCODONE hydrochloride 5 mg oral tablet (3 sources) Opioid Agonist Start: 06-08-2020 End: 11-04-2021 take 1 tablet by mouth every six hours as needed for pain Oxycodone 5 mg Tablet Discontinued 5 MG PO Every 6 hours as needed for Moderate Pain 5 3 June 08, 2020 November 04, 2021 12:18pm prednisoLONE 10 mg/ml ophthalmic solution (3 sources) Corticosteroid Start: 06-03-2020 End: 11-04-2021 take [...] Pt Unable To Verify Home Med s (3 sources) Start: 06-03-2020 End: 06-08-2020 Pt Unable To Verify Home Med s Discontinued June 03, 2020 1:00am June 08, 2020 1:27pm Start: 06-03-2020 End: 06-08-2020 Pt Unable To Verify Home Med s Discontinued June 03, 2020 12:00am June 08, 2020 12:27pm spironolactone 50 mg oral tablet (16 sources) Aldosterone Antagonist Start: 06-03-2020 End: 11-04-2021 Spironolactone 50 mg tablet Discontinued 50 MG PO As Directed June 03, 2020 1:00am November 04, 2021 12:18pm triamcinolone acetonide 40 mg/ml injectable suspension (13 sources) Corticosteroid Start: 09-08-2021 Kenalog-40 30 Aug, 2021 40 mg Start: 09-08-2021 Kenalog -40 mg 30 Aug, 2021 40 mg Problems Active Problems Problem Classification [...] fibrillation] Onset: 12-20-2021 Chronic Chronic kidney disease (5 sources) Chronic kidney disease, unspecified; Translations: [Chronic [...] Onset: 03-31-2022 Chronic Deficiency and other anemia (3 sources) Anemia of chronic disease; Translations: [Anemia in other chronic diseases classified elsewhere] 06-08-2020 Chronic Deficiency and other anemia (1 source) Anemia, unspecified; Translations: [ANEMIA UNSPECIFIED] Onset: 10-18-2022 Episodic Deficiency and other anemia (3 sources) Anemia; Translations: [Anemia, unspecified] 11-04-2021 Episodic Diseases of white blood cells (3 sources) Leukocytosis; Translations: [Elevated white blood cell count, unspecified] 06-08-2020 Chronic Disorders of lipid metabolism (4 sources) Hyperlipidemia, unspecified; Translations: [HYPERLIPIDEMIA UNSPECIFIED] Onset: 02-11-2022 Chronic E Codes: Fall (6 sources) Unspecified fall, initial encounter; Translations: [Fall from chair, initial encounter] Onset: 12-01-2021 11-04-2021 Episodic Esophageal disorders (1 source) Gastro-esophageal reflux disease without esophagitis; Translations: [GERD WITHOUT ESOPHAGITIS] Onset: 08-18-2022 Chronic Essential hypertension (4 sources) Essential (primary) hypertension; Translations: [Hypertensive disorder] Onset: 08-18-2022 11-09-2021 Chronic Fluid and electrolyte disorders (8 sources) Hypo-osmolality and hyponatremia; Translations: [Hyperkalemia] Onset: [...] W/STAGE 1-4 CKD/UNS CKD] Onset: 05-11-2022 Chronic Malaise and fatigue (8 sources) Weakness; Translations: [Asthenia] Onset: 03-28-2022 Episodic Mood disorders (2 sources) Bipolar disorder, [...] region] Episodic Other aftercare (1 source) Other alf (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; Translations: [OTH JAIL CURRENT DRUG THERAPY] Onset: 10-18-2022 Episodic Other [...] Episodic Other diseases of veins and lymphatics (3 sources) Disorder of vein of lower extremity; Translations: [Venous insufficiency (chronic) (peripheral)] 06-08-2020 Episodic Other fractures (13 sources) Fracture of pubis; Translations: [Unspecified fracture of left pubis, subsequent encounter for fracture with delayed healing] Episodic Other fractures (3 sources) Closed fracture of pelvis; Translations: [Fracture of unspecified parts of lumbosacral spine and pelvis, initial encounter for closed fracture] 06-03-2020 Episodic Other nervous system disorders (13 sources) Chronic pain; Translations: [Other chronic pain] Chronic Other nervous system disorders (4 sources) Other chronic pain Onset: 10-28-2021 Resolved: 12-23-2021 Chronic Other nervous system disorders (2 sources) Parkinsonism due to drug; Translations: [Other drug induced secondary parkinsonism] 02-05-2025 Chronic Other nervous system disorders (2 sources) Metabolic encephalopathy; Translations: [Metabolic encephalopathy] 02-05-2025 Chronic Other nervous system disorders (2 sources) Unresponsive ; Translations: [Other symptoms and signs involving cognitive functions and awareness] 02-05-2025 Episodic Other non-traumatic joint disorders (1 source) Other [...] INDEX BMI 45.0-49.9 ADULT] Onset: 03-31-2022 Chronic Other nutritional; endocrine; and metabolic disorders (2 sources) Obesity; Translations: [Obesity, unspecified] 02-05-2025 Chronic Residual codes; unclassified (2 sources) Hallucinations; Translations: [Hallucinations, unspecified] 02-05-2025 Episodic Spondylosis; intervertebral disc disorders; other back problems (20 sources) Solitary sacroiliitis; Translations: [Sacroiliitis, not elsewhere classified] Onset: 10-06-2021 Resolved: 12-23-2021 Chronic Substance-related disorders (1 source) Nicotine dependence, cigarettes, uncomplicated; Translations: [NICOTINE DEPEND CIGARETTES UNCOMP] Onset: 05-11-2022 Chronic Superficial injury; contusion (20 sources) Contusion of left knee, initial encounter; [...] Translations: [GASTROINTESTINAL HEMORRHAGE UNS] Onset: 2 Episodic Immunizations and screening for infectious disease (1 source) Raised antibody titer; Translations: [Raised antibody titer] Onset: 5 Episodic Open wounds of extremities (5 sources) Unspecified open wound, left lower leg, initial encounter; Translations: [UNS OPEN WOUND LT LOWER LEG INITIAL] Onset: 2 Episodic Other acquired deformities (1 source) Spondylolisthesis, lumbar region Onset: 2 Resolved: 2 Episodic Other aftercare (1 source) watermaster (current) use of antibiotics; Translations: [JAIL CURRENT USE ANTIBIOTICS] Onset: 2 Episodic Other aftercare (1 source) watermaster (current) use of aspirin; Translations: [COMPUTER FORWARDING SYSTEM MARKUP CLERK CURRENT USE OF ASPIRIN] Onset: 2 Episodic Other aftercare (1 source) watermaster (current) use of insulin; Translations: [COMPUTER FORWARDING SYSTEM MARKUP CLERK CURRENT USE OF INSULIN] Onset: 2 Episodic [...] Test Name Value Interpretation Reference Range Facility Urine Cultureon 02-09-2025 Bacteria identified Cx Nom (U) <9,000 colonies/ml mixed bacterial skin contaminants 2 Days PERFORMED BY: [place] [address] PATHOLOGIST FORESTRY INSTRUCTOR RAFAT LEE M.D. Normal [facility] Comment on above: Performed By: #### C UU #### [address] Strep pneumo Ag, Uron 2024 Body Fld Cult Not indicated. Invalid Interpretation Code [facility] Comment on above: Performed By: #### 4 [id number] #### [facility] [address] [place] [address] Note Bact Ag Cult Comment Invalid Interpretation Code [facility] Comment on above: Result Comment: Manjinder ege of [place] [employer] standards require a culture to be performed on CSF specimens submitted for bacterial antigen testing. (CAP [id number]) Urine specimens will not be cultured. Performed at: [facility] [address] [place] [address] [id number] MD Dayron Pepper Performed By: #### 4 [id number] #### [facility] [address] [place] [address] Org ID S pneumo Not indicated. Invalid Interpretation Code [facility] Comment on above: Performed By: #### 4 [id number] #### [facility] [address] [place] [address] Spec Source S pneumo Urine Invalid Interpretation Code [facility] Comment on above: Performed By: #### 4 [id number] #### [facility] [address] [place] [address] Strep pneumo Ag Negative Invalid Interpretation Code Negative [facility] Comment on above: Performed By: #### 4 [id number] #### [facility] [address] [place] [address] U Legi Agon 01-16-2025 U Legion Ag Negative Invalid Interpretation Code Negative [facility] Comment on above: Result Comment: Pres umptive negative for L. pneumophila serogroup 1 antigen in urine, suggesting no recent or current infection. Legionnaires' disease cannot be ruled out since other serogroups and species may also cause disease. Performed at: [facility] [address] [place] [address] [id number] MD Dayron Pepper Performed By: #### 2 [id number] #### [facility] [address] [place] [address] BMPon 01-15-2025 Anion gap [Moles/Vol] 13 mmol/L Normal 6-16 [facility] Comment on above: Performed By: #### 2 [id number] #### [facility] [address] [facility] [facility] [place] [address] BUN/Creat Ratio 15 No Units Normal 10-20 [facility] Comment on above: Performed By: #### 2 [id number] #### [facility] [address] [place] [address] Calcium [Mass/Vol] 8.9 mg/dL Normal 8.9-11.1 [facility] Comment on above: Performed By: #### 2 [id number] #### [facility] [address] [place] [address] Chloride [Moles/Vol] 102 mmol/L Normal 101-111 [facility] Comment on above: Performed By: #### 2 [id number] #### [facility] [address] [place] [address] CO2 [Moles/Vol] 29 mmol/L Normal 21-31 [facility] Comment on above: Performed By: #### 2 [id number] #### [facility] [address] [place] [address] Creatinine [Mass/Vol] 1.5 mg/dL High 0.5-1.3 [facility] Comment on above: Performed By: #### 2 [id number] #### [facility] [address] [place] [address] Glucose [Mass/Vol] 94 mg/dL Normal 55-199 [facility] Comment on above: Performed By: #### 2 [id number] #### [facility] [address] [place] [address] Potassium [Moles/Vol] 3.7 mmol/L Normal 3.5-5.3 [facility] Comment on above: Performed By: #### 2 [id number] #### [facility] [address] [facility] [address] Sodium [Moles/Vol] 140 mmol/L Normal 135-145 [facility] Comment on above: Performed By: #### 2 [id number] #### [facility] [address] [place] [address] Urea nitrogen [Mass/Vol] 23 mg/dL High 5-21 [facility] Comment on above: Performed By: #### 2 [id number] #### [facility] [address] [place] [address] CBC w/ Auto Diffon 5 Basophil Absolute 0.1 E9/L Normal 0.0-0.2 [facility] Comment on above: Performed By: #### 2 [id number] #### [facility] [address] [place] [address] Basophils/100 WBC (Bld) 0.7 % Normal 0.0-2.0 [facility] Comment on above: Performed By: #### 2 [id number] #### [facility] [address] [place] [address] Eos Absolute 0.9 E9/L High 0.0-0.5 [facility] Comment on above: Performed By: #### 2 [id number] #### [facility] [address] [place] [address] Eosinophils/100 WBC (Bld) 7.0 % Normal 0.0-8.0 [facility] Comment on above: Performed By: #### 2 [id number] #### [facility] [address] [place] [address] Erythrocyte distribution width (RBC) [Ratio] 14.1 % Normal 10.9-14.2 [facility] Comment on above: Performed By: #### 2 [id number] #### [facility] [address] [place] [address] Hematocrit (Bld) [Volume fraction] 34.4 % Normal 34.0-46.0 [facility] Comment on above: Performed By: #### 2 [id number] #### [facility] [address] [place] [address] Hemoglobin (Bld) [Mass/Vol] 11.7 g/dL Low 12.0-16.0 [facility] Comment on above: Performed By: #### 2 [id number] #### [facility] [address] [place] [address] Lymph Absolute 0.9 E9/L Low 1.0-4.0 [facility] Comment on above: Performed By: #### 2 [id number] #### [facility] [address] [place] [address] Lymphocytes/100 WBC (Bld) 7.1 % Low 14.0-50.0 [facility] Comment on above: Performed By: #### 2 [id number] #### [facility] [address] [place] [address] MCH (RBC) [Entitic mass] 34.1 pg High 27.0-34.0 [facility] Comment on above: Performed By: #### 2 [id number] #### [facility] [address] [place] [address] MCHC (RBC) [Mass/Vol] 33.8 g/dL Normal 31.4-36.0 [facility] Comment on above: Performed By: #### 2 [id number] #### [facility] [address] [place] [address] MCV (RBC) [Entitic vol] 100.7 fL High 80.0-100.0 [facility] Comment on above: Performed By: #### 2 [id number] #### [facility] [address] [place] [address] [place] Absolute 1.0 E9/L Normal 0.2-1.0 [facility] Comment on above: Performed By: #### 2 [id number] #### [facility] [address] [place] [address] Monocytes/100 WBC (Bld) 8.5 % Normal 4.0-14.0 [facility] Comment on above: Performed By: #### 2 [id number] #### [facility] [address] [place] [address] Neutro Absolute 9.4 E9/L High 2.0-7.5 [facility] Comment on above: Performed By: #### 2 [id number] #### [facility] [address] [place] [address] Neutro Auto 76.7 % High 36.0-75.0 [facility] Comment on above: Performed By: #### 2 [id number] #### [facility] [address] [place] [address] Platelet 195.0 E9/L Normal 150.0-500.0 [facility] Comment on above: Performed By: #### 2 [id number] #### [facility] [address] [place] [address] Platelet mean volume (Bld) [Entitic vol] 7.8 fL Normal 6.4-10.8 [facility] Comment on above: Performed By: #### 2 [id number] #### [facility] [address] [place] [address] RBC 3.4 E12/L Low 4.3-5.9 [facility] Comment on above: Performed By: #### 2 [id number] #### [facility] [address] [place] [address] WBC 12.2 E9/L High 4.0-11.0 [facility] Comment on above: Performed By: #### 2 [id number] #### [facility] [address] [place] [address] Inpatient Clinical Summaryon 01-15-2025 Inpatient Clinical Summary Inpatient Clinical Summary [address] [address] Clinical Summary Person Information: Name: LINDA NASCIMENTO Age: 74 Years : 1950 Sex: Female PCP: Ave Mehta MD Marital Status: Race: White Ethnicity: Non- or Language: [place] Visit Id: Visit Reason: Potential stroke; Syncope/Near syncope; Weakness or fatigue; POSS STROKE Speciality: Acuity: Enc Type: Inpatient Med Service: Medical Arrival: 01/13/2025 13:01:29 Discharge: Dispo Type: Admitted as IP to this Hosp Address: [id number] [facility] [id number] Provider Notes: Diagnosis: 1:Sepsis; 2:Pneumonia; 3:Acute hypoxic [...] Physician: Jarrod Mahajan III, DO Consulting Physician: [facility] Wound, XXXX; Marino Roe MD Referring Physician: Follow up: With: Address: When: neurology Within 2 to 4 weeks Comments: call [phone] to scheduled an appt Patient Education Information: Normal [facility] Inpatient Patient Summaryon 01-15-2025 Inpatient Patient Summary Inpatient Patient Summary LINDA NASCIMENTO :1950 Visit Date:01/13/2025 Inpatient Discharge Instructions Your Care Team Admitting Physician - Jarrod Mahajan III, DO Consulting Physician - Marino Roe MD [facility] Wound, XXXX Reason for Your Visit pna [...] Within 2 to 4 weeks Comments: call [phone] to scheduled an appt Where: The Following [...] Tab) 1 Tablets By Mouth Every day 8/7 @ 0900 Unchanged olanzapine (olanzapine 15 mg oral tablet) (more content not included)... Normal [facility] Inpatient Patient Summary Inpatient Patient Summary [place] [id number] Patient Discharge Instructions PERSON INFORMATION Name: LINDA [...] Within 2 to 4 weeks Comments: call [phone] to scheduled an appt In the event [...] every day. Last (more content not included)... [facility] Interdisciplinary Note - Antony e Manageron 01-15-2025 Interdisciplinary Note - Conference Translator Interdisciplinary Note - Conference Translator Plan remains for patient to return to her LTC facility at [facility] when medically stable. Updates provided to facility. Copy of IMM at bedside. CM to follow. [facility] Comment on above: Result Comment: Elec [...] Locations R1: This test was performed at: [facility], [address] [place] [address], [id number]- , [place], Normal [facility] Comment on above: Performed By: #### 1 [id number] #### [facility] [address] [place] [address] eGFRon 01-15-2025 eGFR 36 mL/min/1.73 m2 Low >=59 [facility] Comment on above: Performed By: #### 1 [id number] #### [facility] [address] [place] [address] CBC w/ Auto Diffon 5 Basophil Absolute 0.1 E9/L Normal 0.0-0.2 [facility] Comment on above: Performed By: #### 2 [id number] #### [facility] [address] [place] [address] Basophils/100 WBC (Bld) 0.5 % Normal 0.0-2.0 [facility] Comment on above: Performed By: #### 2 [id number] #### [facility] [address] [place] [address] Eos Absolute 0.5 E9/L Normal 0.0-0.5 [facility] Comment on above: Performed By: #### 2 [id number] #### [facility] [address] [place] [address] Eosinophils/100 WBC (Bld) 3.9 % Normal 0.0-8.0 [facility] Comment on above: Performed By: #### 2 [id number] #### [facility] [address] [place] [address] Erythrocyte distribution width (RBC) [Ratio] 14.2 % Normal 10.9-14.2 [facility] Comment on above: Performed By: #### 2 [id number] #### [facility] [address] [place] [address] Hematocrit (Bld) [Volume fraction] 32.5 % Low 34.0-46.0 [facility] Comment on above: Performed By: #### 2 [id number] #### [facility] [address] [place] [address] Hemoglobin (Bld) [Mass/Vol] 11.1 g/dL Low 12.0-16.0 [facility] Comment on above: Performed By: #### 2 [id number] #### [facility] [address] [place] [address] Lymph Absolute 1.3 E9/L Normal 1.0-4.0 [facility] Comment on above: Performed By: #### 2 [id number] #### [facility] [address] [place] [address] Lymphocytes/100 WBC (Bld) 10.4 % Low 14.0-50.0 [facility] Comment on above: Performed By: #### 2 [id number] #### [facility] [address] [place] [address] MCH (RBC) [Entitic mass] 34.7 pg High 27.0-34.0 [facility] Comment on above: Performed By: #### 2 [id number] #### [facility] [address] [place] [address] MCHC (RBC) [Mass/Vol] 34.2 g/dL Normal 31.4-36.0 [facility] Comment on above: Performed By: #### 2 [id number] #### [facility] [address] [place] [address] MCV (RBC) [Entitic vol] 101.5 fL High 80.0-100.0 [facility] Comment on above: Performed By: #### 2 267527 #### [facility] [address] [place] [address] [place] Absolute 1.1 E9/L High 0.2-1.0 [facility] Comment on above: Performed By: #### 2 [id number] #### [facility] [address] [place] [address] Monocytes/100 WBC (Bld) 9.0 % Normal 4.0-14.0 [facility] Comment on above: Performed By: #### 2 [id number] #### [facility] [address] [place] [address] Neutro Absolute 9.2 E9/L High 2.0-7.5 [facility] Comment on above: Performed By: #### 2 143663 #### [facility] [address] [place] [address] Neutro Auto 76.2 % High 36.0-75.0 [facility] Comment on above: Performed By: #### 2 [id number] #### [facility] [address] [place] [address] Platelet 189.0 E9/L Normal 150.0-500.0 [facility] Comment on above: Performed By: #### 2 [id number] #### [facility] [address] [place] [address] Platelet mean volume (Bld) [Entitic vol] 7.4 fL Normal 6.4-10.8 [facility] Comment on above: Performed By: #### 2 [id number] #### [facility] [address] [place] [address] RBC 3.2 E12/L Low 4.3-5.9 [facility] Comment on above: Performed By: #### 2 [id number] #### [facility] [address] [place] [address] WBC 12.1 E9/L High 4.0-11.0 [facility] Comment on above: Performed By: #### 2 842039 #### [facility] [address] [place] [address] CMPon 01-14-2025 Albumin [Mass/Vol] 3.5 g/dL Normal 3.3-5.0 [facility] Comment on above: Performed By: #### 2 247660 #### [facility] [address] [place] [address] Albumin/Globulin [Mass ratio] 1.3 {ratio} Normal 1.1-2.2 [facility] Comment on above: Performed By: #### 2 252992 #### [facility] [address] [place] [address] Alk Phos 66 Int._Unit/L Normal 21-98 [facility] Comment on above: Performed By: #### 2 [id number] #### [facility] [address] [place] [address] ALT 7 Int._Unit/L Normal 6-46 [facility] Comment on above: Performed By: #### 2 668087 #### [facility] [address] [place] [address] Anion gap [Moles/Vol] 10 mmol/L Normal 6-16 [facility] Comment on above: Performed By: #### 2 778732 #### [facility] [address] [place] [address] AST 13 Int._Unit/L Normal 5-43 [facility] Comment on above: Performed By: #### 2 244034 #### [facility] [address] [place] [address] Bili Total 0.6 mg/dL Normal 0.0-1.1 [facility] Comment on above: Performed By: #### 2 554750 #### [facility] [address] [place] [address] BUN/Creat Ratio 17 No Units Normal 10-20 [facility] Comment on above: Performed By: #### 2 228382 #### [facility] [address] [place] [address] Calcium [Mass/Vol] 8.6 mg/dL Low 8.9-11.1 [facility] Comment on above: Performed By: #### 2 456836 #### [facility] [address] [place] [address] Chloride [Moles/Vol] 103 mmol/L Normal 101-111 [facility] Comment on above: Performed By: #### 2 [id number] #### [facility] [address] [place] [address] CO2 [Moles/Vol] 33 mmol/L High 21-31 [facility] Comment on above: Performed By: #### 2 152688 #### [facility] [address] [place] [address] Creatinine [Mass/Vol] 1.5 mg/dL High 0.5-1.3 [facility] Comment on above: Performed By: #### 2 374878 #### [facility] [address] [place] [address] Globulin (S) [Mass/Vol] 2.6 g/dL Normal 1.4-4.0 [facility] Comment on above: Performed By: #### 2 740701 #### [facility] [address] [place] [address] Glucose [Mass/Vol] 90 mg/dL Normal 55-199 [facility] Comment on above: Performed By: #### 2 174853 #### [facility] [address] [place] [address] Potassium [Moles/Vol] 3.7 mmol/L Normal 3.5-5.3 [facility] Comment on above: Performed By: #### 2 239854 #### [facility] [address] [place] [address] Protein [Mass/Vol] 6.1 g/dL Normal 6.0-7.8 [facility] Comment on above: Performed By: #### 2 845151 #### [facility] [address] [place] [address] Sodium [Moles/Vol] 142 mmol/L Normal 135-145 [facility] Comment on above: Performed By: #### 2 691080 #### [facility] [address] [place] [address] Urea nitrogen [Mass/Vol] 25 mg/dL High 5-21 [facility] Comment on above: Performed By: #### 2 651904 #### [facility] [address] [place] [address] [id number] 01-14-2025 HbA1c (Bld) [Mass fraction] 5.6 % Normal <=5.9 [facility] Comment on above: Performed By: #### 7 [id number] #### [facility] [address] [place] [address] MRA Head w/o Contraston 0 MRA Head w/o Contrast Exam Date/Time: 01/14/2025 16:51 EDT Reason for Exam: TIA Report Please see MRI brain report. Ordering Provider: Jarrod Mahajan FINAL REPORT Dictated: 01/14/2025 5:19 pm Dwight Coffey DO Signed (Electronic Signature): 01/14/2025 5:19 pm Signed by: Dwight Coffey DO Transcribed by: BEATRIZ Technologist: LULY Jim [facility] MRA Neck w/o Contraston MRA Neck w/o Contrast Exam Date/Time: 01/14/2025 16:51 EDT Reason for Exam: TIA Report IMPRESSION: NO DISSECTION, HIGH GRADE STENOSIS OR ANEURYSM. EXAM: MR angiogram of the neck without contrast HISTORY: TIA TECHNIQUE: Axial 2-D and 3-D [id number] images of the vasculature of the neck [...] DO Transcribed by: BEATRIZ Technologist: LULY Rider [facility] MRI Brain w/o Contraston MRI Brain w/o [...] brain was performed without contrast. Axial 3-D [id number] images of the brain were obtained without [...] by: BEATRIZ Technologist: LULY Normal [facility] eGFRon 01-14-2025 eGFR 36 mL/min/1.73 m2 Low >=59 [facility] Comment on above: Performed By: #### 1 [id number] #### [facility] [address] [place] [address] BB Draw & Holdon 01-13-2025 BB D&H Sample drawn for Blood Ba Normal [facility] Comment on above: Performed By: #### 1 [id number] #### [facility] [address] [place] [address] BMPon 01-13-2025 Anion gap [Moles/Vol] 15 mmol/L Normal 6-16 [facility] Comment on above: Performed By: #### 2 [id number] #### [facility] [address] [place] [address] BUN/Creat Ratio 16 No Units Normal 10-20 [facility] Comment on above: Performed By: #### 2 677955 #### [facility] [address] [place] [address] Calcium [Mass/Vol] 9.9 mg/dL Normal 8.9-11.1 [facility] Comment on above: Performed By: #### 2 400032 #### [facility] [address] [place] [address] Chloride [Moles/Vol] 99 mmol/L Low 101-111 [facility] Comment on above: Performed By: #### 2 561091 #### [facility] [address] [place] [address] CO2 [Moles/Vol] 29 mmol/L Normal 21-31 [facility] Comment on above: Performed By: #### 2 085003 #### [facility] [address] [place] [address] Creatinine [Mass/Vol] 1.6 mg/dL High 0.5-1.3 [facility] Comment on above: Performed By: #### 2 986180 #### [facility] [address] [place] [address] Glucose [Mass/Vol] 172 mg/dL Normal 55-199 [facility] Comment on above: Performed By: #### 2 256706 #### [facility] [address] [place] [address] Potassium [Moles/Vol] 3.8 mmol/L Normal 3.5-5.3 [facility] Comment on above: Performed By: #### 2 433425 #### [facility] [address] [place] [address] Sodium [Moles/Vol] 139 mmol/L Normal 135-145 [facility] Comment on above: Performed By: #### 2 150237 #### [facility] [address] [place] [address] Urea nitrogen [Mass/Vol] 26 mg/dL High 5-21 [facility] Comment on above: Performed By: #### 2 368769 #### [facility] [address] [place] [address] BNPon 01-13-2025 Int Ctr BNP Pass Normal [facility] Comment on above: Performed By: #### 1 [id number] #### [facility] [address] [place] [address] Natriuretic peptide B (Bld) [Mass/Vol] 370 pg/mL High 5-80 [facility] Comment on above: Performed By: #### 1 [id number] #### [facility] [address] [place] [address] CBC w/ Auto Diffon 5 Basophil Absolute 0.1 E9/L Normal 0.0-0.2 [facility] Comment on above: Performed By: #### 2 306686 #### [facility] [address] [place] [address] Basophils/100 WBC (Bld) 0.5 % Normal 0.0-2.0 [facility] Comment on above: Performed By: #### 2 924088 #### [facility] [address] [place] [address] Eos Absolute 0.1 E9/L Normal 0.0-0.5 [facility] Comment on above: Performed By: #### 2 620478 #### [facility] [address] [place] [address] Eosinophils/100 WBC (Bld) 0.4 % Normal 0.0-8.0 [facility] Comment on above: Performed By: #### 2 [id number] #### [facility] [address] [place] [address] Erythrocyte distribution width (RBC) [Ratio] 14.3 % High 10.9-14.2 [facility] Comment on above: Performed By: #### 2 562139 #### [facility] [address] [place] [address] Hematocrit (Bld) [Volume fraction] 38.6 % Normal 34.0-46.0 [facility] Comment on above: Performed By: #### 2 858677 #### [facility] [address] [place] [address] Hemoglobin (Bld) [Mass/Vol] 13.4 g/dL Normal 12.0-16.0 [facility] Comment on above: Performed By: #### 2 009674 #### [facility] [address] [place] [address] Lymph Absolute 0.7 E9/L Low 1.0-4.0 [facility] Comment on above: Performed By: #### 2 510485 #### [facility] [address] [place] [address] Lymphocytes/100 WBC (Bld) 5.2 % Low 14.0-50.0 [facility] Comment on above: Performed By: #### 2 698336 #### [facility] [address] [place] [address] MCH (RBC) [Entitic mass] 34.9 pg High 27.0-34.0 [facility] Comment on above: Performed By: #### 2 355034 #### [facility] [address] [place] [address] MCHC (RBC) [Mass/Vol] 34.6 g/dL Normal 31.4-36.0 [facility] Comment on above: Performed By: #### 2 390696 #### [facility] [address] [place] [address] MCV (RBC) [Entitic vol] 100.7 fL High 80.0-100.0 [facility] Comment on above: Performed By: #### 2 416265 #### [facility] [address] [place] [address] [place] Absolute 0.3 E9/L Normal 0.2-1.0 [facility] Comment on above: Performed By: #### 2 290716 #### [facility] [address] [place] [address] Monocytes/100 WBC (Bld) 2.2 % Low 4.0-14.0 [facility] Comment on above: Performed By: #### 2 [id number] #### [facility] [address] [place] [address] Neutro Absolute 12.6 E9/L High 2.0-7.5 [facility] Comment on above: Performed By: #### 2 557677 #### [facility] [address] [place] [address] Neutro Auto 91.7 % High 36.0-75.0 [facility] Comment on above: Performed By: #### 2 843876 #### [facility] [address] [place] [address] Platelet 233.0 E9/L Normal 150.0-500.0 [facility] Comment on above: Performed By: #### 2 [id number] #### [facility] [address] [place] [address] Platelet mean volume (Bld) [Entitic vol] 7.2 fL Normal 6.4-10.8 [facility] Comment on above: Performed By: #### 2 [id number] #### [facility] [address] [place] [address] RBC 3.8 E12/L Low 4.3-5.9 [facility] Comment on above: Performed By: #### 2 630150 #### [facility] [address] [place] [address] WBC 13.7 E9/L High 4.0-11.0 [facility] Comment on above: Performed By: #### 2 [id number] #### [facility] [address] [place] [address] COVID-19 (MC)on 01-13-2025 SARS-CoV-2 (COVID-19) RNA DONNIE+probe Ql (Unsp spec) Not detected Normal Not Detected [facility] Comment on above: Result Comment: This [...] Emergency Use Authorization. Performed By: #### 2 [id number] #### [facility] [address] [place] [address] SARS-CoV-2 (COVID-19) RNA DONNIE+probe Ql (Unsp spec) Pass Normal Pass [facility] Comment on above: Performed By: #### 2 [id number] #### [facility] [address] [place] [address] Specimen source Nom (Unsp spec) Nasal Normal [facility] Comment on above: Performed By: #### 2 [id number] #### [facility] [address] [place] [address] Head or Brain w/o Contras ton [...] Jhaveri MD Transcribed by: BEATRIZ Technologist: JULIA Normal [facility] ED Clinical Summaryon 2024 ED Clinical Summary ED Clinical Summary [address] [address] ED Clinical Summary Person Information Name: LINDA NASCIMENTO [place] Age: 74 Years : 1950 Sex: Female Language: [place] PCP: Ave Mehta MD Marital Status: Visit Id: Visit Reason: Potential stroke; Syncope/Near syncope; Weakness or fatigue; POSS STROKE Speciality: Acuity: 2 Enc Type: Inpatient Med Service: Medical Arrival: 01/13/2025 13:01:29 Discharge: LOS: 000 02:54 Checkin: 01/13/2025 13:01:29 Checkout: 01/13/2025 15:55:23 Dispo Type: Admitted as IP to this [facility] EVENTS: Event Name Event Status Request Date/Time [...] 01/13/2025 15:55:23 01/13/2025 15:55:23 01/13/2025 15:55:23 ADDRESS: [address] [place] [id number] PHYS DOC NOTES: MEDICAL INFORMATION: Prescriptions Given: [...] failure; 6:Acute kidney injury Normal [facility] ED Note-Physicianon 01-14-20 ED Note-Physician ED Note-Physician Basic Information Time Seen: Bobo AshrafBrittny 01/13/2025 13:11 Chief Complaint patient last well known time is 1130. patient at lunch, per NH pt went unresponsive, EMS called and were informed that patient possible stroke, Patient initiated IV, patient transported to [facility] ED, History of Present Illness The patient is a 74-year-old female past medical history of atrial fibrillation on Eliquis, status post pacemaker placement who presented to the emergency room from [facility] for possible stroke. The patient presented for [...] age Procedure Sepsis Data [ ] Patient's [place] body weight was considered in sepsis fluid [...] and Complexity of Problems Differential Diagnosis: [] [facility] Data External documents reviewed: [] My EKG [...] (more content not included)... Normal [facility] Comment on above: Result Comment: Elec tronically Signed By: Brittny Broussard M.D.\.br\Date and Time Signed: 01/13/25 16:21 EDT ED Patient Education Noteon 01-13-2025 ED Patient Education Note ED Patient Education Note Normal [facility] ED Patient Summaryon 025 ED Patient Summary ED Patient Summary [place] [address] Patient Discharge Instructions Person Information Name: LINDA NASCIMENTO Age: 74 Years Arrival Date: 01/13/2025 13:01:29 Discharge Diagnosis: 1:Sepsis; 2:Pneumonia; 3:Stroke-like symptoms; 4:Aphasia; 5:Acute hypoxic respiratory failure; 6:Acute kidney injury Primary Care Physician: Ave Mehta MD Provider Information Primary Provider: Brittny Broussard M.D. Advanced Underwriting Intern:None The exam and treatment you received in the Emergency Department were for an urgent problem and are not intended as complete care. It is important that you follow up with a doctor, nurse practitioner, or physician???s orthotic assistant for ongoing care. If your symptoms [...] opioids can be used to help relieve okcxcouw-hm-xkyimr pain and are often prescribed following a [...] be struggling with addiction, tell your health critical care physician assistant and ask for guidance or call [facility]???S National Helpline at 8-846-170-YFUT. (more content not included)... Normal [facility] Hep Func Panelon 01-13-2025 Albumin [Mass/Vol] 4.5 g/dL Normal 3.3-5.0 [facility] Comment on above: Performed By: #### 2 [id number] #### [facility] [address] [place] [address] Albumin/Globulin [Mass ratio] 1.3 {ratio} Normal 1.1-2.2 [facility] Comment on above: Performed By: #### 2 651800 #### [facility] [address] [place] [address] Alk Phos 86 Int._Unit/L Normal 21-98 [facility] Comment on above: Performed By: #### 2 [id number] #### [facility] [address] [place] [address] ALT 10 Int._Unit/L Normal 6-46 [facility] Comment on above: Performed By: #### 2 [id number] #### [facility] [address] [place] [address] AST 22 Int._Unit/L Normal 5-43 [facility] Comment on above: Performed By: #### 2 [id number] #### [facility] [address] [place] [address] Bili Direct 0.1 mg/dL Normal 0.0-0.4 [facility] Comment on above: Performed By: #### 2 [id number] #### [facility] [address] [place] [address] Bili Indirect 0.6 mg/dL Normal 0.1-0.9 [facility] Comment on above: Performed By: #### 2 624773 #### [facility] [address] [place] [address] Bili Total 0.7 mg/dL Normal 0.0-1.1 [facility] Comment on above: Performed By: #### 2 559649 #### [facility] [address] [place] [address] Globulin (S) [Mass/Vol] 3.5 g/dL Normal 1.4-4.0 [facility] Comment on above: Performed By: #### 2 [id number] #### [facility] [address] [place] [address] Protein [Mass/Vol] 8.0 g/dL High 6.0-7.8 [facility] Comment on above: Performed By: #### 2 [id number] #### [facility] [address] [place] [address] Lactic Acidon 01-13-2025 Lactic Acid Lvl 1.2 mmol/L Normal 0.5-2.2 [facility] Comment on above: Order Comment: Order added by EKS Rule. (FT_LACTIC_ACID_REFLEX) Adds reflex Lactic Acid 4 hours after initial if result is greater than or equal to 2.0. Performed By: #### 2 [id number] #### [facility] [address] [place] [address] Lactic Acid Lvl 2.1 mmol/L Normal 0.5-2.2 [facility] Comment on above: Performed By: #### 2 250286 #### [facility] [address] [place] [address] Magnesiumon 01-13-2025 Magnesium [Mass/Vol] 1.9 mg/dL Normal 1.3-2.4 [facility] Comment on above: Performed By: #### 2 [id number] #### [facility] [address] [place] [address] PT & PTTon 01-13-2025 INR Coag (PPP) [Relative time] 2.02 {INR} Invalid Interpretation Code [facility] Comment on above: Result Comment: INR results are specifically intended to assess patients stabilized on long-term Anticoagulation therapy suggested INR???s ???Less Intensive Anticoagulation??? 2.0 ??? 3.0 Conventional Range 3.0 ??? 4.5 Performed By: #### 1 [id number] #### [facility] [address] [place] [address] PT 22.8 second(s) High 9.4-12.5 [facility] Comment on above: Result Comment: 15 [...] the same coagulation reagent and instrumentation as [facility]. Currently there are no coagulation studies available worldwide for children to 14 days, and no normal ranges. Performed By: #### 1 [id number] #### [facility] [address] [place] [address] PTT 39.6 second(s) High 25.1-36.5 [facility] Comment on above: Result Comment: Para [...] the same coagulation reagent and instrumentation as [facility]. Currently there are no coagulation studies available worldwide for children to 14 days, and no normal ranges. Heparin therapeutic range (represented by Anti-Factor Xa activity of 0.2 - 0.4 U/mL) corresponds to PTT of 56.6 - 109.0 sec. Performed By: #### 1 [id number] #### [facility] [address] [place] [address] Pre-Arrival Noteon Pre-Arrival Note Pre-Arrival Note Pre-Arrival Summary Name: , [place] [facility] Current Date: 01/13/2025 13:01:54 EDT Gender: Female Date of : Age: 74 Pre-Arrival Type: EMS ETA: 01/13/2025 13:25:00 EDT Primary Care Physician: Presenting Problem: stroke Pre-Arrival User: Cassia Alcaraz RN Referring Source: Location: [place] Completion Date/Time: 01/13/2025 12:55:00 [facility] Emergency Department Pre-Hospital Report Form Vital Signs: Pre-Hospital Report: Treatment in Route: Response to Treatment: Misc. Issues: Normal [facility] Procalcitoninon 01-13-2025 Procalcitonin <.05 Normal .00-.50 [facility] Comment on above: Result Comment: <0.5 [...] to 24 hours. Performed By: #### 2 [id number] #### [facility] [address] [place] [address] Respiratory Panel by PCRon 0 01-13-2025 Adenovirus Not detected Normal [facility] Comment on above: Result Comment: Test ing was performed using nucleic acid amplification including Influenza A, Influenza A H1, Influenza A H3, Influenza B, RSV A, RSV B, Adenovirus, Human Metapneumovirus, Parainfluenza 1,2,3, and 4, Rhinovirus, Bordetella parapertussis/bronchiseptica, Bordetella holmesii, and Bordetella pertussis. Performed By: #### 1 [id number] #### [facility] [address] [place] [address] B. holmesii Not detected Normal [facility] Comment on above: Performed By: #### 1 [id number] #### [facility] [address] [place] [id number] B. parapertussis/bronchise ptica Not detected Normal Not Detected [facility] Comment on above: Performed By: #### 1 [id number] #### [facility] [address] [place] [address] B. pertussis Not detected Normal Not Detected [facility] Comment on above: Performed By: #### 1 [id number] #### [facility] [address] [place] [address] Human Metapneumovirus Not detected Normal [facility] Comment on above: Result Comment: This test result should be correlated with clinical presentations and medical history by a healthcare provider to determine its clinical significance. Performed By: #### 1 [id number] #### [facility] [address] [place] [address] Influenza A Not detected Normal [facility] Comment on above: Performed By: #### 1 [id number] #### [facility] [address] [place] [address] Influenza A (subtype H1) Not detected Normal [facility] Comment on above: Performed By: #### 1 [id number] #### [facility] [address] [place] [address] Influenza A (subtype H3) Not detected Normal [facility] Comment on above: Performed By: #### 1 [id number] #### [facility] [address] [place] [address] Influenza B Not detected Normal [facility] Comment on above: Performed By: #### 1 [id number] #### [facility] [address] [place] [address] Parainfluenza 1 Not detected Normal [facility] Comment on above: Performed By: #### 1 [id number] #### [facility] [address] [place] [address] Parainfluenza 2 Not detected Normal [facility] Comment on above: Performed By: #### 1 [id number] #### [facility] [address] [place] [address] Parainfluenza 3 Not detected Normal [facility] Comment on above: Performed By: #### 1 [id number] #### [facility] [address] [place] [address] Parainfluenza 4 Not detected Normal [facility] Comment on above: Performed By: #### 1 [id number] #### [facility] [address] [place] [address] Resp Panel Intrl QC Pass Normal [facility] Comment on above: Performed By: #### 1 [id number] #### [facility] [address] [place] [address] Rhinovirus Not detected Normal [facility] Comment on above: Performed By: #### 1 [id number] #### [facility] [address] [place] [address] RSV A Not detected Normal [facility] Comment on above: Performed By: #### 1 [id number] #### [facility] [address] [place] [address] RSV B Not detected Normal [facility] Comment on above: Performed By: #### 1 [id number] #### [facility] [address] [place] [address] Troponin 0 Hr.on 01-13-2025 Troponin HS 10.60 pg/mL Normal 10.10-27.10 [facility] Comment on above: Result Comment: The 95% CI (Confidence Interval) PPV (Positive Predictive Value) for myocardial infarction in females is 38 pg/mL, in males 51 pg/mL. The results should be used in conjunction with clinical conditions of myocardial infarction. (Access High Sensitivity Troponin I Instructions For Use, [facility], January 2018) Performed By: #### 1 [id number] #### [facility] [address] [place] [address] Troponin 1 Hr.on 01-13-2025 Troponin HS 17.50 pg/mL Normal 10.10-27.10 [facility] Comment on above: Result Comment: The 95% CI (Confidence Interval) PPV (Positive Predictive Value) for myocardial infarction in females is 38 pg/mL, in males 51 pg/mL. The results should be used in conjunction with clinical conditions of myocardial infarction. (Access High Sensitivity Troponin I Instructions For Use, [facility], January 2018) Performed By: #### 1 [id number] #### [facility] [address] [place] [address] UA with Cult Rflxon 01-14-20 25 Color (U) Colorless Abnormal Yellow [facility] Comment on above: Result Comment: Micr oscopic readings are only performed on those samples that meet specific criteria set forth by [facility]. Performed By: #### 4 [id number] #### [facility] [address] [place] [address] Ketones Ql (U) Negative Normal Negative [facility] Comment on above: Performed By: #### 4 [id number] #### [facility] [address] [place] [address] UA Blood Negative Normal Negative [facility] Comment on above: Performed By: #### 4 [id number] #### [facility] [address] [place] [address] UA Clarity Clear Normal Clear [facility] Comment on above: Performed By: #### 4 [id number] #### [facility] [address] [place] [address] UA Glucose 3+ mg/dL Abnormal Negative [facility] Comment on above: Performed By: #### 4 [id number] #### [facility] [address] [place] [address] UA Leuk Est Negative Normal Negative [facility] Comment on above: Performed By: #### 4 [id number] #### [facility] [address] [place] [address] UA Nitrite Negative Normal Negative [facility] Comment on above: Performed By: #### 4 [id number] #### [facility] [address] [place] [address] UA pH 6.5 Invalid Interpretation Code 5.0-9.0 [facility] Comment on above: Performed By: #### 4 [id number] #### [facility] [address] [place] [address] UA Protein Negative Normal Negative [facility] Comment on above: Performed By: #### 4 [id number] #### [facility] [address] [place] [address] UA Spec Grav 1.006 Invalid Interpretation Code 1.005-1.030 [facility] Comment on above: Performed By: #### 4 [id number] #### [facility] [address] [place] [address] UA Urobilinogen Negative Normal Negative [facility] Comment on above: Performed By: #### 4 [id number] #### [facility] [address] [place] [address] Urobilinogen (U) [Mass/Vol] Negative Normal Negative [facility] Comment on above: Performed By: #### 4 [id number] #### [facility] [address] [place] [address] UA Spec Desc Clean Catch Normal [facility] Comment on above: Performed By: #### 4 [id number] #### [facility] [address] [place] [address] XR Chest Single Viewon 01-13 XR Chest [...] MD Transcribed by: BEATRIZ Technologist: DPR Normal [facility] eGFRon 01-13-2025 eGFR 33 mL/min/1.73 m2 Low >=59 [facility] Comment on above: Performed By: #### 1 [id number] #### [facility] [address] [place] [address] Office Visiton 12-31-2024 Follow-up visit [id number] Linda Nascimento 1950 Date Provider Department Center 12/31/2024 [address] JUAN Lopez Family History Problem Relation Age of Onset Lung cancer Mother Stroke Father Family Status - Relation Status Age at Mother Father Level of Service:[address] [place] OFFICE/OUTPATIENT ESTABLISHED HIGH MDM 40 MIN Normal [facility] Orders Onlyon 12-31-2024 Orders Only [id number] Linda Nascimento 1950 Provider Department Center 12/31/2024 ROXY MARTIN Family History Problem Relation Age of Onset Lung cancer Mother Stroke Father Family Status - Relation Status Age at Mother Father Normal [facility] KERRI Antinuclear Antibodieson 07-31-2024 Antinuclear Abs, IFA Positive Critically abnormal . [facility] Comment on above: Result Comment: Nega tive <1:80 Borderline 1:80 Positive >1:80 Speckled cytoplasmic fluorescence is present. The antibodies noted in this pattern may be associated with, but not restricted to, primary biliary cirrhosis (PBC), polymyositis and dermatomyositis (PM/DM), and/or systemic lupus erythematosus (SLE). Performed By: #### T 4F, CK, CRP, TSH3, ESR, CBC, CMP #### [facility] [address] #### HBCAB, JUSTINA, HBSAG, ALDOLASE, HCV RX PCR, HBSAB, THYGLOB AB, CHROMATIN, C4, C3, CH50, RPR W RFX, TPO, KERRI #### [facility] , Homogeneous Pattern 1:160 High . [facility] Comment on above: Result Comment: ICAP nomenclature: [id number] Performed By: #### T 4F, CK, CRP, TSH3, ESR, CBC, CMP #### [facility] [address] #### HBCAB, JUSTINA, HBSAG, ALDOLASE, HCV RX PCR, HBSAB, THYGLOB AB, CHROMATIN, C4, C3, CH50, RPR W RFX, TPO, KERRI #### [facility] , Note 1 Comment Normal . [facility] Comment on above: Result Comment: Brigid ignacio Potential Disease Association Homogeneous Systemic Lupus Erythematosus, Drug Induced Systemic Lupus Erythematosus, Chronic Autoimmune hepatitis, Juvenile Idiopathic Arthritis Speckled Sjogren Syndrome, Systemic Lupus Erythematosus, Subacute Cutaneous Lupus, Lupus, Congenital Heart Block, Mixed Connective Tissue Disease, Scleroderma-diffuse, Scleroderma-Autoimmune Myositis Overlap Syndrome, Systemic Lupus Jlqlzjcepclcp-Wlkfnwtqxaa-Hedeiurzeo Myositis Overlap Syndrome, Systemic Autoimmune Rheumatic Disease, [...] Cytopenias, Linear Scleroderma, Antiphospholipid Syndrome Performed at: [facility] [address] [id number] Barrel Repairer: Iain Siegel PhD, Phone: [phone] Performed By: #### T 4F, CK, CRP, TSH3, ESR, CBC, CMP #### [facility] [address] [place] [address] #### HBCAB, JUSTINA, HBSAG, ALDOLASE, HCV RX PCR, HBSAB, THYGLOB AB, CHROMATIN, C4, C3, CH50, RPR W RFX, TPO, KERRI #### [facility] , Alanine aminotransferase [En zymatic activity/volume] in Serum or PlasmaOrdered By: Beti Ham on 07-31-2024 ALT [Catalytic activity/Vol] Alanine aminotransferase [Enzymatic activity/volume] in Serum or Plasma [facility] Albumin [Mass/volume] in Ser um or Plasma by Bromocresol green (BCG) dye binding methoOrdered By: Beti Ham on 07-31-2024 Albumin BCG dye [Mass/Vol] Albumin [Mass/volume] in Serum or Plasma by Bromocresol green (BCG) dye binding metho 3.5-5.7 [facility] Aldolaseon 07-31-2024 Aldolase 3.3 U/L Normal 3.3-10.3 [facility] Comment on above: Result Comment: Perf ormed at: [facility] [address] [id number] Barrel Repairer: Iain Siegel PhD, Phone: [phone] PERFORMED BY: [place] [address] PATHOLOGIST FORESTRY INSTRUCTOR SARAHI JUAREZ M.D. Performed By: #### T 4F, CK, CRP, TSH3, ESR, CBC, CMP #### [place] [address] [place] #### HBCAB, JUSTINA, HBSAG, ALDOLASE, HCV RX PCR, HBSAB, THYGLOB AB, CHROMATIN, C4, C3, CH50, RPR W RFX, TPO, KERRI #### [facility] , Alkaline phosphatase [Enzyma tic activity/volume] in Serum or PlasmaOrdered By: Beti Ham on 07-31-2024 ALP [Catalytic activity/Vol] Alkaline phosphatase [Enzymatic activity/volume] in Serum or Plasma 34-104 [facility] Angiotensin Converting Enzym libby 07-31-2024 Angiotensin converting enzyme [Catalytic activity/Vol] 53 U/L Normal 14-82 [facility] Comment on above: Result Comment: Perf ormed at: - [facility] [address] [id number] Barrel Repairer: Iain Siegel PhD, Phone: [phone] Performed By: #### T 4F, CK, CRP, TSH3, ESR, CBC, CMP #### [place] [address] [place] #### HBCAB, JUSTINA, HBSAG, ALDOLASE, HCV RX PCR, HBSAB, THYGLOB AB, CHROMATIN, C4, C3, CH50, RPR W RFX, TPO, KERRI #### [facility] , Antithyroglobulin Abon 07-31 Antithyroglobulin Ab <1.0 Normal 0.0-0.9 [facility] Comment on above: Result Comment: Thyr oglobulin Antibody measured by [facility] Methodology It should be noted that the presence of thyroglobulin antibodies may not be pathogenic nor diagnostic, especially at very low levels. The assay adjustment clerk has found that four percent of individuals without evidence of thyroid disease or autoimmunity will have positive TgAb levels up to 4 IU/mL. Performed at: - [facility] [address] [id number] Barrel Repairer: Iain Siegel PhD, Phone: [phone] Performed By: #### T 4F, CK, CRP, TSH3, ESR, CBC, CMP #### [place] [address] [place] #### HBCAB, JUSTINA, HBSAG, ALDOLASE, HCV RX PCR, HBSAB, THYGLOB AB, CHROMATIN, C4, C3, CH50, RPR W RFX, TPO, KERRI #### [facility] , Aspartate aminotransferase [ Enzymatic activity/volume] in Serum or PlasmaOrdered By: Beti Ham on 07-31-2024 AST [Catalytic activity/Vol] Aspartate aminotransferase [Enzymatic activity/volume] in Serum or Plasma 13-39 [facility] Basophils Auto (Bld) [#/Vol] Ordered By: Beti Ham on 07-31-2024 Basophils (Bld) [#/Vol] Automated basoph il count 0.0-0.2 [facility] Basophils/100 WBC Auto (Bld) Ordered By: Beti Ham on 07-31-2024 Basophils/100 WBC (Bld) Automated basophil % . [facility] Bilirubin.total [Mass/volume ] in Serum or PlasmaOrdered By: Beti Ham on 07-31-2024 Bilirubin [Mass/Vol] Bilirubin.total [Mass/volume] in Serum or Plasma 0.3-1.0 [facility] C reactive protein [Mass/vol ume] in Serum or PlasmaOrdered By: Beti Ham on 07-31-2024 CRP [Mass/Vol] C reactive protein [Mass/volume] in Serum or Plasma High 0.0-0.5 [facility] C-Reactive Proteinon 025 C-Reactive Protein 2.6 mg/dL High 0.0-0.5 [facility] Comment on above: Performed By: #### T 4F, CK, CRP, TSH3, ESR, CBC, CMP #### [facility] [address] [place] [address] [place] #### HBCAB, JUSTINA, HBSAG, ALDOLASE, HCV RX PCR, HBSAB, THYGLOB AB, CHROMATIN, C4, C3, CH50, RPR W RFX, TPO, KERRI #### [facility] , Calcium [Mass/volume] in Ser um or PlasmaOrdered By: Beti Ham on 07-31-2024 Calcium [Mass/Vol] Calcium [Mass/volume] in Serum or Plasma 8.6-10.3 [facility] Carbon dioxide, total [Moles /volume] in Serum or PlasmaOrdered By: eBti Ham on 07-31-2024 CO2 [Moles/Vol] Carbon dioxide, total [Moles/volume] in Serum or Plasma High 21.0-31.0 [facility] Chloride [Moles/volume] in S anne or PlasmaOrdered By: Beti Hma on 07-31-2024 Chloride [Moles/Vol] Chloride [Moles/volume] in Serum or Plasma 98-107 [facility] Chromatin Antibodyon 025 Chromatin Antibody <0.2 Normal 0.0-0.9 [facility] Comment on above: Performed By: #### T 4F, CK, CRP, TSH3, ESR, CBC, CMP #### [facility] [address] [place] [address] [place] #### HBCAB, JUSTINA, HBSAG, ALDOLASE, HCV RX PCR, HBSAB, THYGLOB AB, CHROMATIN, C4, C3, CH50, RPR W RFX, TPO, KERRI #### [facility] , Complement C3on 07-31-2024 Complement C3 189 mg/dL High 82-167 [facility] Comment on above: Result Comment: Perf ormed at: - [facility] [address] [id number] Barrel Repairer: Iain Siegel PhD, Phone: [phone] Performed By: #### T 4F, CK, CRP, TSH3, ESR, CBC, CMP #### [facility] [address] [place] [address] [place] #### HBCAB, JUSTINA, HBSAG, ALDOLASE, HCV RX PCR, HBSAB, THYGLOB AB, CHROMATIN, C4, C3, CH50, RPR W RFX, TPO, KERRI #### [facility] , Complement C4on 07-31-2024 Complement C4 36 mg/dL Normal 12-38 [facility] Comment on above: Performed By: #### T 4F, CK, CRP, TSH3, ESR, CBC, CMP #### [place] [address] [place] #### HBCAB, JUSTINA, HBSAG, ALDOLASE, HCV RX PCR, HBSAB, THYGLOB AB, CHROMATIN, C4, C3, CH50, RPR W RFX, TPO, KERRI #### [facility] , Complement Total (CH50)on Complement Total (CH50) >60 Normal >41 [facility] Comment on above: Result [...] determine out of range values. Performed at: [facility] [address] [id number] Barrel Repairer: Iain Siegel PhD, Phone: [phone] PERFORMED BY: [place] [address] PATHOLOGIST FORESTRY INSTRUCTOR SARAHI JUAREZ M.D. Performed By: #### T 4F, CK, CRP, TSH3, ESR, CBC, CMP #### [place] [address] [place] #### HBCAB, JUSTINA, HBSAG, ALDOLASE, HCV RX PCR, HBSAB, THYGLOB AB, CHROMATIN, C4, C3, CH50, RPR W RFX, TPO, KERRI #### [facility] , Complete Blood Count Auto Di ffon 02-19-2025 Basophils (Bld) [#/Vol] 0.1 10*3/uL Normal 0.0-0.2 [facility] Comment on above: Performed By: #### T 4F, CK, CRP, TSH3, ESR, CBC, CMP #### [address] #### HBCAB, JUSTINA, HBSAG, ALDOLASE, HCV RX PCR, HBSAB, THYGLOB AB, CHROMATIN, C4, C3, CH50, RPR W RFX, TPO, KERRI #### [facility] , Basophils/100 WBC (Bld) 0.9 % Normal . [facility] Comment on above: Performed By: #### T 4F, CK, CRP, TSH3, ESR, CBC, CMP #### [address] #### HBCAB, JUSTINA, HBSAG, ALDOLASE, HCV RX PCR, HBSAB, THYGLOB AB, CHROMATIN, C4, C3, CH50, RPR W RFX, TPO, KERRI #### [facility] , Eosinophils (Bld) [#/Vol] 0.3 10*3/uL Normal 0.0-0.45 [facility] Comment on above: Performed By: #### T 4F, CK, CRP, TSH3, ESR, CBC, CMP #### [place] [address] [place] #### HBCAB, JUSTINA, HBSAG, ALDOLASE, HCV RX PCR, HBSAB, THYGLOB AB, CHROMATIN, C4, C3, CH50, RPR W RFX, TPO, KERRI #### [facility] , Eosinophils/100 WBC (Bld) 4.4 % Normal . [facility] Comment on above: Performed By: #### T 4F, CK, CRP, TSH3, ESR, CBC, CMP #### [place] [address] [place] #### HBCAB, JUSTINA, HBSAG, ALDOLASE, HCV RX PCR, HBSAB, THYGLOB AB, CHROMATIN, C4, C3, CH50, RPR W RFX, TPO, KERRI #### [facility] , Erythrocyte distribution width (RBC) [Ratio] 15.0 % Normal 11.9-15.3 [facility] Comment on above: Performed By: #### T 4F, CK, CRP, TSH3, ESR, CBC, CMP #### [address] #### HBCAB, JUSTINA, HBSAG, ALDOLASE, HCV RX PCR, HBSAB, THYGLOB AB, CHROMATIN, C4, C3, CH50, RPR W RFX, TPO, KERRI #### [facility] , Hematocrit (Bld) [Volume fraction] 34.5 % Normal 34.0-46.4 [facility] Comment on above: Performed By: #### T 4F, CK, CRP, TSH3, ESR, CBC, CMP #### [place] [address] [place] #### HBCAB, JUSTINA, HBSAG, ALDOLASE, HCV RX PCR, HBSAB, THYGLOB AB, CHROMATIN, C4, C3, CH50, RPR W RFX, TPO, KERRI #### [facility] , Hemoglobin (Bld) [Mass/Vol] 12.0 g/dL Normal 11.8-15.4 [facility] Comment on above: Performed By: #### T 4F, CK, CRP, TSH3, ESR, CBC, CMP #### [place] [address] [place] #### HBCAB, JUSTINA, HBSAG, ALDOLASE, HCV RX PCR, HBSAB, THYGLOB AB, CHROMATIN, C4, C3, CH50, RPR W RFX, TPO, KERRI #### [facility] , Lymphocytes (Bld) [#/Vol] 1.1 10*3/uL Normal 1.00-4.8 [facility] Comment on above: Performed By: #### T 4F, CK, CRP, TSH3, ESR, CBC, CMP #### [place] [address] [place] #### HBCAB, JUSTINA, HBSAG, ALDOLASE, HCV RX PCR, HBSAB, THYGLOB AB, CHROMATIN, C4, C3, CH50, RPR W RFX, TPO, KERRI #### [facility] , Lymphocytes/100 WBC (Bld) 15.8 % Normal . [facility] Comment on above: Performed By: #### T 4F, CK, CRP, TSH3, ESR, CBC, CMP #### [address] #### HBCAB, JUSTINA, HBSAG, ALDOLASE, HCV RX PCR, HBSAB, THYGLOB AB, CHROMATIN, C4, C3, CH50, RPR W RFX, TPO, KERRI #### [facility] , MCH (RBC) [Entitic mass] 36.0 pg High 24.7-34.3 [facility] Comment on above: Performed By: #### T 4F, CK, CRP, TSH3, ESR, CBC, CMP #### [address] #### HBCAB, JUSTINA, HBSAG, ALDOLASE, HCV RX PCR, HBSAB, THYGLOB AB, CHROMATIN, C4, C3, CH50, RPR W RFX, TPO, KERRI #### [facility] , MCV (RBC) [Entitic vol] 103.7 fL High 80-100 [facility] Comment on above: Performed By: #### T 4F, CK, CRP, TSH3, ESR, CBC, CMP #### [place] [address] [place] #### HBCAB, JUSTINA, HBSAG, ALDOLASE, HCV RX PCR, HBSAB, THYGLOB AB, CHROMATIN, C4, C3, CH50, RPR W RFX, TPO, KERRI #### [facility] , Mean Corpuscular HGB Conc 34.7 g/dL Normal 32.0-35.0 [facility] Comment on above: Performed By: #### T 4F, CK, CRP, TSH3, ESR, CBC, CMP #### [place] [address] [place] #### HBCAB, JUSTINA, HBSAG, ALDOLASE, HCV RX PCR, HBSAB, THYGLOB AB, CHROMATIN, C4, C3, CH50, RPR W RFX, TPO, KERRI #### [facility] , Monocytes (Bld) [#/Vol] 0.5 10*3/uL Normal 0.0-0.8 [facility] Comment on above: Performed By: #### T 4F, CK, CRP, TSH3, ESR, CBC, CMP #### [facility] [address] #### HBCAB, JUSTINA, HBSAG, ALDOLASE, HCV RX PCR, HBSAB, THYGLOB AB, CHROMATIN, C4, C3, CH50, RPR W RFX, TPO, KERRI #### [facility] , Monocytes/100 WBC (Bld) 7.0 % Normal . [facility] Comment on above: Performed By: #### T 4F, CK, CRP, TSH3, ESR, CBC, CMP #### [facility] [address] #### HBCAB, JUSTINA, HBSAG, ALDOLASE, HCV RX PCR, HBSAB, THYGLOB AB, CHROMATIN, C4, C3, CH50, RPR W RFX, TPO, KERRI #### [facility] , Neutrophils (Bld) [#/Vol] 5.2 10*3/uL Normal 1.8-7.7 [facility] Comment on above: Performed By: #### T 4F, CK, CRP, TSH3, ESR, CBC, CMP #### [facility] [address] [place] [address] [place] #### HBCAB, JUSTINA, HBSAG, ALDOLASE, HCV RX PCR, HBSAB, THYGLOB AB, CHROMATIN, C4, C3, CH50, RPR W RFX, TPO, KERRI #### [facility] , Neutrophils/100 WBC (Bld) 71.9 % Normal . [facility] Comment on above: Performed By: #### T 4F, CK, CRP, TSH3, ESR, CBC, CMP #### [place] [address] [place] #### HBCAB, JUSTINA, HBSAG, ALDOLASE, HCV RX PCR, HBSAB, THYGLOB AB, CHROMATIN, C4, C3, CH50, RPR W RFX, TPO, KERRI #### [facility] , NRBC% 0.1 /100{WBC} Normal 0-0.5 [facility] Comment on above: Performed By: #### T 4F, CK, CRP, TSH3, ESR, CBC, CMP #### [address] #### HBCAB, JUSTINA, HBSAG, ALDOLASE, HCV RX PCR, HBSAB, THYGLOB AB, CHROMATIN, C4, C3, CH50, RPR W RFX, TPO, KERRI #### [facility] , Platelet mean volume (Bld) [Entitic vol] 7.9 fL Normal 6.3-10.7 [facility] Comment on above: Performed By: #### T 4F, CK, CRP, TSH3, ESR, CBC, CMP #### [place] [address] [place] #### HBCAB, JUSTINA, HBSAG, ALDOLASE, HCV RX PCR, HBSAB, THYGLOB AB, CHROMATIN, C4, C3, CH50, RPR W RFX, TPO, KERRI #### [facility] , Platelets (Bld) [#/Vol] 204 10*3/uL Normal 150-450 [facility] Comment on above: Performed By: #### T 4F, CK, CRP, TSH3, ESR, CBC, CMP #### [place] [address] [place] #### HBCAB, JUSTINA, HBSAG, ALDOLASE, HCV RX PCR, HBSAB, THYGLOB AB, CHROMATIN, C4, C3, CH50, RPR W RFX, TPO, KERRI #### [facility] , RBC (Bld) [#/Vol] 3.32 10*6/uL Low 3.60-5.00 [facility] Comment on above: Performed By: #### T 4F, CK, CRP, TSH3, ESR, CBC, CMP #### [address] #### HBCAB, JUSTINA, HBSAG, ALDOLASE, HCV RX PCR, HBSAB, THYGLOB AB, CHROMATIN, C4, C3, CH50, RPR W RFX, TPO, KERRI #### [facility] , WBC (Bld) [#/Vol] 7.2 10*3/uL Normal 3.8-11.6 [facility] Comment on above: Performed By: #### T 4F, CK, CRP, TSH3, ESR, CBC, CMP #### [address] #### HBCAB, JUSTINA, HBSAG, ALDOLASE, HCV RX PCR, HBSAB, THYGLOB AB, CHROMATIN, C4, C3, CH50, RPR W RFX, TPO, KERRI #### [facility] , Comprehensive Metabolic Pane mahendra 07-31-2024 Albumin [Mass/Vol] 3.7 g/dL Normal 3.5-5.7 [facility] Comment on above: Performed By: #### T 4F, CK, CRP, TSH3, ESR, CBC, CMP #### [address] #### HBCAB, JUSTINA, HBSAG, ALDOLASE, HCV RX PCR, HBSAB, THYGLOB AB, CHROMATIN, C4, C3, CH50, RPR W RFX, TPO, KERRI #### [facility] , Albumin/Globulin [Mass ratio] 1.4 {ratio} Normal [facility] Comment on above: Performed By: #### T 4F, CK, CRP, TSH3, ESR, CBC, CMP #### [address] #### HBCAB, JUSTINA, HBSAG, ALDOLASE, HCV RX PCR, HBSAB, THYGLOB AB, CHROMATIN, C4, C3, CH50, RPR W RFX, TPO, KERRI #### [facility] , ALP [Catalytic activity/Vol] 94 U/L Normal 34-104 [facility] Comment on above: Performed By: #### T 4F, CK, CRP, TSH3, ESR, CBC, CMP #### [address] #### HBCAB, JUSTINA, HBSAG, ALDOLASE, HCV RX PCR, HBSAB, THYGLOB AB, CHROMATIN, C4, C3, CH50, RPR W RFX, TPO, KERRI #### [facility] , ALT [Catalytic activity/Vol] 10 U/L Normal 7-52 [facility] Comment on above: Performed By: #### T 4F, CK, CRP, TSH3, ESR, CBC, CMP #### [place] [address] [place] #### HBCAB, JUSTINA, HBSAG, ALDOLASE, HCV RX PCR, HBSAB, THYGLOB AB, CHROMATIN, C4, C3, CH50, RPR W RFX, TPO, KERRI #### [facility] , Anion gap [Moles/Vol] 9.2 mmol/L Normal 6.0-15.0 [facility] Comment on above: Performed By: #### T 4F, CK, CRP, TSH3, ESR, CBC, CMP #### [place] [address] [place] #### HBCAB, JUSTINA, HBSAG, ALDOLASE, HCV RX PCR, HBSAB, THYGLOB AB, CHROMATIN, C4, C3, CH50, RPR W RFX, TPO, KERRI #### [facility] , AST [Catalytic activity/Vol] 14 U/L Normal 13-39 [facility] Comment on above: Performed By: #### T 4F, CK, CRP, TSH3, ESR, CBC, CMP #### [place] [address] [place] #### HBCAB, JUSTINA, HBSAG, ALDOLASE, HCV RX PCR, HBSAB, THYGLOB AB, CHROMATIN, C4, C3, CH50, RPR W RFX, TPO, KERRI #### [facility] , Bilirubin [Mass/Vol] 0.5 mg/dL Normal 0.3-1.0 [facility] Comment on above: Performed By: #### T 4F, CK, CRP, TSH3, ESR, CBC, CMP #### [address] #### HBCAB, JUSTINA, HBSAG, ALDOLASE, HCV RX PCR, HBSAB, THYGLOB AB, CHROMATIN, C4, C3, CH50, RPR W RFX, TPO, KERRI #### [facility] , Calcium [Mass/Vol] 9.2 mg/dL Normal 8.6-10.3 [facility] Comment on above: Performed By: #### T 4F, CK, CRP, TSH3, ESR, CBC, CMP #### [place] [address] [place] #### HBCAB, JUSTINA, HBSAG, ALDOLASE, HCV RX PCR, HBSAB, THYGLOB AB, CHROMATIN, C4, C3, CH50, RPR W RFX, TPO, KERRI #### [facility] , Chloride [Moles/Vol] 102 mmol/L Normal 98-107 [facility] Comment on above: Performed By: #### T 4F, CK, CRP, TSH3, ESR, CBC, CMP #### [place] [address] [place] #### HBCAB, JUSTINA, HBSAG, ALDOLASE, HCV RX PCR, HBSAB, THYGLOB AB, CHROMATIN, C4, C3, CH50, RPR W RFX, TPO, KERRI #### [facility] , CO2 [Moles/Vol] 34.1 mmol/L High 21.0-31.0 [facility] Comment on above: Performed By: #### T 4F, CK, CRP, TSH3, ESR, CBC, CMP #### [place] [address] [place] #### HBCAB, JUSTINA, HBSAG, ALDOLASE, HCV RX PCR, HBSAB, THYGLOB AB, CHROMATIN, C4, C3, CH50, RPR W RFX, TPO, KERRI #### [facility] , Creatinine [Mass/Vol] 1.42 mg/dL High 0.60-1.20 [facility] Comment on above: Performed By: #### T 4F, CK, CRP, TSH3, ESR, CBC, CMP #### [facility] [address] #### HBCAB, JUSTINA, HBSAG, ALDOLASE, HCV RX PCR, HBSAB, THYGLOB AB, CHROMATIN, C4, C3, CH50, RPR W RFX, TPO, KERRI #### [facility] , Estimated GFR 38.332 mL/Min Normal [facility] Comment on above: Performed By: #### T 4F, CK, CRP, TSH3, ESR, CBC, CMP #### [address] #### HBCAB, JUSTINA, HBSAG, ALDOLASE, HCV RX PCR, HBSAB, THYGLOB AB, CHROMATIN, C4, C3, CH50, RPR W RFX, TPO, KERRI #### [facility] , Globulin (S) [Mass/Vol] 2.7 g/dL Normal [facility] Comment on above: Performed By: #### T 4F, CK, CRP, TSH3, ESR, CBC, CMP #### [place] [address] [place] #### HBCAB, JUSTINA, HBSAG, ALDOLASE, HCV RX PCR, HBSAB, THYGLOB AB, CHROMATIN, C4, C3, CH50, RPR W RFX, TPO, KERRI #### [facility] , Glucose [Mass/Vol] 95 mg/dL Normal 70-100 [facility] Comment on above: Result Comment: [facility] Glucose Reference Range is dependent on time and content of last meal. Glucose of more than 200 mg/dL in a nonstressed, ambulatory subject supports the diagnosis of Diabetes Mellitus. ADA recommended reference range Performed By: #### T 4F, CK, CRP, TSH3, ESR, CBC, CMP #### [address] #### HBCAB, JUSTINA, HBSAG, ALDOLASE, HCV RX PCR, HBSAB, THYGLOB AB, CHROMATIN, C4, C3, CH50, RPR W RFX, TPO, KERRI #### [facility] , Potassium [Moles/Vol] 4.3 mmol/L Normal 3.5-5.1 [facility] Comment on above: Performed By: #### T 4F, CK, CRP, TSH3, ESR, CBC, CMP #### [place] [address] [place] #### HBCAB, JUSTINA, HBSAG, ALDOLASE, HCV RX PCR, HBSAB, THYGLOB AB, CHROMATIN, C4, C3, CH50, RPR W RFX, TPO, KERRI #### [facility] , Protein [Mass/Vol] 6.4 g/dL Normal 6.4-8.9 [facility] Comment on above: Performed By: #### T 4F, CK, CRP, TSH3, ESR, CBC, CMP #### [place] [address] [place] #### HBCAB, JUSTINA, HBSAG, ALDOLASE, HCV RX PCR, HBSAB, THYGLOB AB, CHROMATIN, C4, C3, CH50, RPR W RFX, TPO, KERRI #### [facility] , Sodium [Moles/Vol] 141 mmol/L Normal 136-145 [facility] Comment on above: Performed By: #### T 4F, CK, CRP, TSH3, ESR, CBC, CMP #### [place] [address] [place] #### HBCAB, JUSTINA, HBSAG, ALDOLASE, HCV RX PCR, HBSAB, THYGLOB AB, CHROMATIN, C4, C3, CH50, RPR W RFX, TPO, KERRI #### [facility] , Urea nitrogen [Mass/Vol] 22 mg/dL Normal 7-25 [facility] Comment on above: Performed By: #### T 4F, CK, CRP, TSH3, ESR, CBC, CMP #### [facility] [address] [place] [address] [place] #### HBCAB, JUSTINA, HBSAG, ALDOLASE, HCV RX PCR, HBSAB, THYGLOB AB, CHROMATIN, C4, C3, CH50, RPR W RFX, TPO, KERRI #### [facility] , Creatine Kinaseon 07-31-2024 CK [Catalytic activity/Vol] 23 U/L Low 30-223 [facility] Comment on above: Result Comment: PERF ORMED BY: [place] [address] PATHOLOGIST FORESTRY INSTRUCTOR SARAHI JUAREZ M.D. Performed By: #### T 4F, CK, CRP, TSH3, ESR, CBC, CMP #### [facility] [address] [place] [address] [place] #### HBCAB, JUSTINA, HBSAG, ALDOLASE, HCV RX PCR, HBSAB, THYGLOB AB, CHROMATIN, C4, C3, CH50, RPR W RFX, TPO, KERRI #### [facility] , Creatine kinase [Enzymatic a ctivity/volume] in Serum or PlasmaOrdered By: Beti Ham on 07-31-2024 CK [Catalytic activity/Vol] Creatine kinase [Enzymatic activity/volume] in Serum or Plasma Low 30-223 [facility] Creatinine [Mass/volume] in Serum or PlasmaOrdered By: Beti Ham on 07-31-2024 Creatinine [Mass/Vol] Creatinine [Mass/volume] in Serum or Plasma High 0.60-1.20 [facility] Eosinophils Auto (Bld) [#/Vo l]Ordered By: Beti Ham on 07-31-2024 Eosinophils (Bld) [#/Vol] Automated eosinophil count 0.0-0.45 [facility] Eosinophils/100 WBC Auto (Bl d)Ordered By: Beti Ham on 07-31-2024 Eosinophils/100 WBC (Bld) Automated eosinophil % . [facility] Erythrocyte Sedimentation Ra [place] 07-31-2024 ESR (Bld) [Velocity] 58 mm/h High 0-29 [facility] Comment on above: Result Comment: PERF ORMED BY: [place] [address] PATHOLOGIST FORESTRY INSTRUCTOR SARAHI JUAREZ M.D. Performed By: #### T 4F, CK, CRP, TSH3, ESR, CBC, CMP #### [address] #### HBCAB, JUSTINA, HBSAG, ALDOLASE, HCV RX PCR, HBSAB, THYGLOB AB, CHROMATIN, C4, C3, CH50, RPR W RFX, TPO, KERRI #### [facility] , Erythrocyte distribution wid th Auto (RBC) [Ratio]Ordered By: Beti Ham on 07-31-2024 Erythrocyte distribution width (RBC) [Ratio] Erythrocyte distribution width [Ratio] by Automated count 11.9-15.3 [facility] Erythrocyte sedimentation ra te by Photometric methodOrdered By: Beti Ham on 07-31-2024 ESR Photometric method (Bld) [Velocity] Erythrocyte sedimentation rate by Photometric method High 0-29 [facility] Free T4 (Free Thyroxine)on 0 07-31-2024 Free T4 [Mass/Vol] 0.80 ng/dL Normal 0.61-1.12 [facility] Comment on above: Performed By: #### T 4F, CK, CRP, TSH3, ESR, CBC, CMP #### [place] [address] [place] #### HBCAB, JUSTINA, HBSAG, ALDOLASE, HCV RX PCR, HBSAB, THYGLOB AB, CHROMATIN, C4, C3, CH50, RPR W RFX, TPO, KERRI #### [facility] , Globulin Calc (S) [Mass/Vol] Ordered By: Beti Ham on 07-31-2024 Globulin (S) [Mass/Vol] Serum globulin measurement by calculation (mass/volume) [facility] Glucose [Mass/volume] in Ser um or PlasmaOrdered By: Beti Ham on 07-31-2024 Glucose [Mass/Vol] Glucose [Mass/volume] in Serum or Plasma 70-100 [facility] Comment on above: ADA recommended refe rence rangeRandom Glucose Reference Range is dependent on time and content of last meal. Glucose of more than 200 mg/dL in a nonstressed, ambulatory subject supports the diagnosis of Diabetes Mellitus. Hematocrit Auto (Bld) [Volum e fraction]Ordered By: Beti Ham on 07-31-2024 Hematocrit (Bld) [Volume fraction] Hematocrit [Volume Fraction] of Blood by Automated count 34.0-46.4 [facility] Hemoglobin [Mass/volume] in BloodOrdered By: Beti Suttonrow on 07-31-2024 Hemoglobin (Bld) [Mass/Vol] Hemoglobin [Mass/volume] in Blood 11.8-15.4 [facility] Hep C Ab wRfx to Qnt PCRon 0 07-31-2024 Hepatitis C Virus Antibody Non-Reactive Normal Non Reactive [facility] Comment on above: Performed By: #### T 4F, CK, CRP, TSH3, ESR, CBC, CMP #### [facility] [address] [place] [address] [place] #### HBCAB, JUSTINA, HBSAG, ALDOLASE, HCV RX PCR, HBSAB, THYGLOB AB, CHROMATIN, C4, C3, CH50, RPR W RFX, TPO, KERRI #### [facility] , Interpretation Hepatitis C Comment Normal . [facility] Comment on above: Result Comment: Not infected with HCV unless early or acute infection is suspected (which may be delayed in an immunocompromised individual), or other evidence exists to indicate HCV infection. Performed By: #### T 4F, CK, CRP, TSH3, ESR, CBC, CMP #### [facility] [address] [place] [address] [place] #### HBCAB, JUSTINA, HBSAG, ALDOLASE, HCV RX PCR, HBSAB, THYGLOB AB, CHROMATIN, C4, C3, CH50, RPR W RFX, TPO, KERRI #### [facility] , Hepatitis B Core Antibodyon 07-31-2024 Hepatitis B Core Antibody Negative Normal Negative [facility] Comment on above: Result Comment: Perf ormed at: - [facility] [address] [id number] Barrel Repairer: Iain Siegel PhD, Phone: [phone] Performed By: #### T 4F, CK, CRP, TSH3, ESR, CBC, CMP #### [place] [address] [place] #### HBCAB, JUSTINA, HBSAG, ALDOLASE, HCV RX PCR, HBSAB, THYGLOB AB, CHROMATIN, C4, C3, CH50, RPR W RFX, TPO, KERRI #### [facility] , Hepatitis B Surface Antibody on 07-31-2024 Hepatitis B Surface Antibody Non-Reactive Normal . [facility] Comment on above: Result Comment: Non Reactive: Not immune to HBV infection. Equivocal: Unable to determine if anti-HBs is present at levels consistent with immunity. Reactive: Anti-HBs concentration detected at greater than 10 mIU/mL. Individual is considered to be immune to infection with HBV. Performed By: #### T 4F, CK, CRP, TSH3, ESR, CBC, CMP #### [place] [address] [place] #### HBCAB, JUSTINA, HBSAG, ALDOLASE, HCV RX PCR, HBSAB, THYGLOB AB, CHROMATIN, C4, C3, CH50, RPR W RFX, TPO, KERRI #### [facility] , Hepatitis B Surface Antigeno n 07-31-2024 HBsAg Screen Negative Normal Negative [facility] Comment on above: Result Comment: PERF ORMED BY: [place] [address] PATHOLOGIST FORESTRY INSTRUCTOR SARAHI JUAREZ M.D. Performed By: #### T 4F, CK, CRP, TSH3, ESR, CBC, CMP #### [place] [address] [place] #### HBCAB, JUSTINA, HBSAG, ALDOLASE, HCV RX PCR, HBSAB, THYGLOB AB, CHROMATIN, C4, C3, CH50, RPR W RFX, TPO, KERRI #### [facility] , Leukocytes [#/volume] correc umang for nucleated erythrocytes in Blood by Automated counOrdered By: Beti Ham on 07-31-2024 WBC corrected for nucl RBC Auto (Bld) [#/Vol] Leukocytes [#/volume] corrected for nucleated erythrocytes in Blood by Automated coun 3.8-11.6 [facility] Lymphocytes Auto (Bld) [#/Vo l]Ordered By: Beti Ham on 07-31-2024 Lymphocytes (Bld) [#/Vol] Lymphocytes [#/volume] in Blood by Automated count 1.00-4.8 [facility] Lymphocytes/100 WBC Auto (Bl d)Ordered By: Beti Ham on 07-31-2024 Lymphocytes/100 WBC (Bld) Lymphocytes/100 leukocytes in Blood by Automated count . [facility] MCH Auto (RBC) [Entitic mass ]Ordered By: Beti Ham on 07-31-2024 MCH (RBC) [Entitic mass] MCH [Entitic mass] by Automated count High 24.7-34.3 [facility] MCHC Auto (RBC) [Mass/Vol]Or dered By: Beti Ham on 07-31-2024 MCHC (RBC) [Mass/Vol] MCHC [Mass/volume] by Automated count 32.0-35.0 [facility] MCV Auto (RBC) [Entitic vol] Ordered By: Beti Ham on 07-31-2024 MCV (RBC) [Entitic vol] MCV [Entitic vol ume] by Automated count High 80-100 [facility] Monocytes Auto (Bld) [#/Vol] Ordered By: Beti Ham on 07-31-2024 Monocytes (Bld) [#/Vol] Automated blood monocyte count 0.0-0.8 [facility] Monocytes/100 WBC Auto (Bld) Ordered By: Beti Ham on 07-31-2024 Monocytes/100 WBC (Bld) Automated monocyte % . [facility] Neutrophils Auto (Bld) [#/Vo l]Ordered By: Beti Ham on 07-31-2024 Neutrophils (Bld) [#/Vol] Neutrophils [#/volume] in Blood by Automated count 1.8-7.7 [facility] Neutrophils/100 WBC Auto (Bl d)Ordered By: Beti Ham on 07-31-2024 Neutrophils/100 WBC (Bld) Automated neutrophil % . [facility] No Panel InformationOrdered By: Beti Ham on 07-31-2024 Estimated GFR (CKD-EPI) 38.332 mL/Min [facility] Creatinine Clearance (Chem N/A [facility] Nucleated erythrocytes [Pres ence] in Blood by Automated countOrdered By: Beti Ham on 07-31-2024 Nucleated RBC Auto Ql (Bld) Nucleated erythrocytes [Presence] in Blood by Automated count 0-0.5 [facility] Platelet mean volume Auto (B ld) [Entitic vol]Ordered By: Beti Ham on 07-31-2024 Platelet mean volume (Bld) [Entitic vol] Platelet mean volume [Entitic volume] in Blood by Automated count 6.3-10.7 [facility] Platelets Auto (Bld) [#/Vol] Ordered By: Beti Ham on 07-31-2024 Platelets (Bld) [#/Vol] Platelets [#/vol ume] in Blood by Automated count 150-450 [facility] Potassium [Moles/volume] in Serum or PlasmaOrdered By: Beti Ham on 07-31-2024 Potassium [Moles/Vol] Potassium [Moles/volume] in Serum or Plasma 3.5-5.1 [facility] Protein [Mass/volume] in Ser um or PlasmaOrdered By: Beti Ham on 07-31-2024 Protein [Mass/Vol] Protein [Mass/volume] in Serum or Plasma 6.4-8.9 [facility] RBC Auto (Bld) [#/Vol]Ordere d By: Beti Ham on 07-31-2024 RBC (Bld) [#/Vol] Erythrocytes [#/volume] in Blood by Automated count Low 3.60-5.00 [facility] RPR w/rfx to Quant TP Abson 07-31-2024 RPR, Rfx Quant RPR Non-Reactive Normal Non Reactive [facility] Comment on above: Result Comment: Perf ormed at: - [facility] [address] [id number] Barrel Repairer: Iain Siegel PhD, Phone: [phone] PERFORMED BY: [place] [address] PATHOLOGIST FORESTRY INSTRUCTOR SARAHI JUAREZ M.D. Performed By: #### T 4F, CK, CRP, TSH3, ESR, CBC, CMP #### [place] [address] [place] #### HBCAB, JUSTINA, HBSAG, ALDOLASE, HCV RX PCR, HBSAB, THYGLOB AB, CHROMATIN, C4, C3, CH50, RPR W RFX, TPO, KERRI #### [facility] , Serum or plasma albumin/glob ulin mass ratioOrdered By: Beti Ham on 07-31-2024 Albumin/Globulin [Mass ratio] Serum or plasma albumin/globulin mass ratio [facility] Serum or plasma anion gap de terminationOrdered By: Beti Ham on 07-31-2024 Anion gap [Moles/Vol] Serum or plasma anion gap determination 6.0-15.0 [facility] Sodium [Moles/volume] in Ser um or PlasmaOrdered By: Beti Ham on 07-31-2024 Sodium [Moles/Vol] Sodium [Moles/volume] in Serum or Plasma 136-145 [facility] Thyroid Peroxidase Antibodie son 07-31-2024 Thyroid Peroxidase Antibodies 12 [IU]/mL Normal 0-34 [facility] Comment on above: Result Comment: Perf ormed at: CB - [facility] [address] [id number] Barrel Repairer: Iain Siegel PhD, Phone: [phone] Performed By: #### T 4F, CK, CRP, TSH3, ESR, CBC, CMP #### [place] [address] [place] #### HBCAB, JUSTINA, HBSAG, ALDOLASE, HCV RX PCR, HBSAB, THYGLOB AB, CHROMATIN, C4, C3, CH50, RPR W RFX, TPO, KERRI #### [facility] , Thyroid Stimulating Hormoneo n 07-31-2024 TSH Qn 2.45 m[IU]/L Normal 0.45-5.33 [facility] Comment on above: Result Comment: PERF ORMED BY: [place] [address] PATHOLOGIST FORESTRY INSTRUCTOR SARAHI JUAREZ M.D. Performed By: #### T 4F, CK, CRP, TSH3, ESR, CBC, CMP #### [facility] [address] [place] [address] #### HBCAB, JUSTINA, HBSAG, ALDOLASE, HCV RX PCR, HBSAB, THYGLOB AB, CHROMATIN, C4, C3, CH50, RPR W RFX, TPO, KERRI #### [facility] , Thyrotropin [Units/volume] i n Serum or PlasmaOrdered By: Beti Ham on 07-31-2024 TSH Qn Thyrotropin [Units/volume] in Serum or Plasma 0.45-5.33 [facility] Thyroxine (T4) free [Mass/vo lume] in Serum or PlasmaOrdered By: Beti Ham on 07-31-2024 Free T4 [Mass/Vol] Thyroxine (T4) free [Mass/volume] in Serum or Plasma 0.61-1.12 [facility] Urea nitrogen [Mass/volume] in Serum or PlasmaOrdered By: Beti Ham on 07-31-2024 Urea nitrogen [Mass/Vol] Urea nitrogen [Mass/volume] in Serum or Plasma 7-25 [facility] WBC Auto (Bld) [#/Vol]Ordere d By: Beti Ham on 07-31-2024 WBC (Bld) [#/Vol] Leukocytes [#/volume] in Blood by Automated count 3.8-11.6 [facility] Office Visiton 05-21-2024 Follow-up visit [id number] Linda Nascimento 1950 F Date Provider Department Center 05/21/2024 ENOCH RAMIREZ [facility] Family History Problem Relation Age of Onset Lung cancer Mother Stroke Father Family Status - Relation Status Age at Mother Father Level of Service:22569 [place] OFFICE/OUTPATIENT ESTABLISHED LOW MDM 20 MIN Normal [facility] Herpes Simplex Virus By PCRo n 05-07-2024 HSV 1 Subtype by PCR Not detected Normal [facility] Comment on above: Order Comment: CALL doctor [id number] tel. [phone], FAX [phone] CALL doctor [id number] tel. [phone], FAX [phone] Result Comment: The specimen submitted for testing did not meet [facility] submission guidelines. Testing was performed on a specimen that did not meet validated specimen type requirements. Performance characteristics of this assay may be affected. Interpret results with caution. Please refer to the [employer] Test Directory for information on specimen acceptability: [email or web address] [email or web address] Performed By: #### A [id number] #### [facility] [address] [place] [place] [id number] HSV 2 Subtype by PCR Not detected Normal [facility] Comment on above: Order Comment: CALL doctor [id number] tel. [phone], FAX [phone] CALL doctor [id number] tel. [phone], FAX [phone] Result Comment: The specimen submitted for testing did not meet [facility] submission guidelines. Testing was performed on a specimen that did not meet validated specimen type requirements. Performance characteristics of this assay may be affected. Interpret results with caution. Please refer to the [employer] Test Directory for information on specimen acceptability: [email or web address] network/testing INTERPRETIVE INFORMATION: HSV-1 and HSV-2 Subtype by PCR A negative result does not rule out the presence of PCR inhibitors in the patient specimen or test-specific nucleic acid in concentrations below the level of detection by this test. This test was developed and its performance characteristics determined by [employer]. It has not been cleared or approved by the [place] Food and Drug Administration. This test was performed in a CLIA certified laboratory and is intended for clinical purposes. Performed By: [employer] [address] [place] [id number] [employer]: Rodrigo Milner MD, PhD CLIA Number: [id number] Performed By: #### A [id number] #### [facility] [address] [place] [id number] Rejection Notificationon Reason see below [facility] [facility] Comment on above: Order Comment: CALL doctor [id number] tel. [phone], FAX [phone] CALL doctor LB474 tel. [phone], FAX [phone] Result Comment: Unab le to perform testing; specimen quantity not sufficient. To perform testing the specimen will need to be recollected. QNS Performed By: #### R EJEC #### [facility] [address] [place] [id number] Rejected Test [id number] [facility] Comment on above: Order Comment: CALL doctor LB474 tel. [phone], FAX [phone] CALL doctor LB474 tel. [phone], FAX [phone] Performed By: #### R EJEC #### [facility] [address] [place] [address] [place] Miscellaneous test 1on 05-03-2024 [facility] Prompt [id number] [facility] Comment on above: Order Comment: CALL doctor LB474 tel. [phone], FAX [phone] Performed By: #### 9 [id number] #### [facility] [address] [place] [id number] Culture, Wound Aerobic, Anae robicon 05-03-2024 Culture, Wound Aerobic, Anaerobic ORDER#: [id number] ORDERED BY: MICHELLE QUINTERO SOURCE: Face Left eye ocular fluid COLLECTED: 05/03/24 07:26 ANTIBIOTICS AT MANJINDER.: RECEIVED : 05/03/24 07:39 CALL doctor LB474 tel. [phone], FAX [phone] Culture, Wound Aerobic, Anaerobic FINAL 05/08/24 08:22 Direct Exam: NO NEUTROPHILS SEEN Direct Exam: NO ORGANISMS SEEN Cult,Aerobe/Anaerobe : NO GROWTH 5 DAYS Performed at [facility] [address] [place] [id number] ([phone] [facility] Comment on above: Performed By: #### I CWAN #### [facility] [address] [place] [id number] Herpes Simplex Virus By PCRo n 05-03-2024 Herpes Simplex Virus Subtype Source eye Normal [facility] Comment on above: Order Comment: CALL doctor LB474 tel. [phone], FAX [phone] CALL doctor LB474 tel. [phone], FAX [phone] Result Comment: ocul ar fld Performed By: #### A 0095 #### [facility] [address] [place] [address] CBC AUTO DIFFon 10-14-2022 BASO # 0.1 103/ul Normal 0.0-0.1 [facility] Comment on above: Performed By: #### C BC ####[facility] [address]ewmll[address] [place] [address]Dr. Slick Broderick Basophils/100 WBC (Bld) 0.6 % Normal 0.2-2.0 [facility] Comment on above: Performed By: #### C BC ####[facility] Mrfdsrewnm59[address] [place] [address]Dr. Slick Broderick EO # 0.4 103/ul Normal 0.0-0.7 [facility] Comment on above: Performed By: #### C BC ####[facility] Egdixclljs9[address] [place] [address]Dr. Slick Broderick Eosinophils/100 WBC (Bld) 3.9 % Normal 0.9-7.0 [facility] Comment on above: Performed By: #### C BC ####[facility] Wheahswqrg4447 [place] [address]Dr. Slick Broderick Erythrocyte distribution width (RBC) [Ratio] 13.2 % Normal 11.0-15.0 [facility] Comment on above: Performed By: #### C BC ####[facility] E[address] [place], [place] [address]Dr. Slick Broderick Hematocrit (Bld) [Volume fraction] 32.4 % Critically low 36.0-48.0 [facility] Comment on above: Performed By: #### C BC ####[facility] Srmbbddqkm15[address] [place] [id number]. Slick Broderick Hemoglobin (Bld) [Mass/Vol] 10.4 g/dL Critically low 12.0-16.0 The [facility] Comment on above: Performed By: #### C BC ####[facility] Toafmwzgvv5[address] [place] [id number]. Slick Broderick IG # 0.19 10e3/ul Critically high 0.00-0.03 [facility] Comment on above: Performed By: #### C BC ####[facility] Ukauxrsqdv9507 [place] [address]Dr. Slick Broderick IG % 2.1 % Critically high 0.0-0.5 The [facility] Comment on above: Performed By: #### C BC ####[facility] D[address]vnw[address] [place], [place] [address]Dr. Slick Broderick LYMPH # 1.0 103/ul Critically low 1.2-3.8 [facility] Comment on above: Performed By: #### C BC ####[facility] Llxvzqstzb8145 [place] [address]Dr. Slick Broderick Lymphocytes/100 WBC (Bld) 11.4 % Critically low 20.5-60.0 The [facility] Comment on above: Performed By: #### C BC ####[facility] Pnlktypqqw4061 [place] [address]Dr. Slick Broderick MANUAL DIFF REQ NO Normal The [facility] Comment on above: Performed By: #### C BC ####[facility] B[address]ukkcj[address] [place], [place] [address]Dr. Slick Broderick MCH (RBC) [Entitic mass] 32.0 pg Normal 26.7-34.0 The [facility] Comment on above: Performed By: #### C BC ####[facility] Kkpodgedqg5669 [place] [address]Dr. Slick Broderick MCHC (RBC) [Mass/Vol] 32.1 g/dL Normal 29.9-35.2 The [facility] Comment on above: Performed By: #### C BC ####[facility] Mjvxmorobp1561 [place] [id number]. Slick Broderick MCV (RBC) [Entitic vol] 99.7 fL Critically high 81.0-99 .0 [facility] Comment on above: Performed By: #### C BC ####[facility] Qydxoaqowe9817 [place] [id number]. Slick Broderick MONO # 1.0 103/ul Critically high 0.3-0.8 The [facility] Comment on above: Performed By: #### C BC ####[facility] Xajxtdcugb0143 [place] [address]Dr. Slick Broderick Monocytes/100 WBC (Bld) 10.8 % Normal 1.7-12.0 [facility] Comment on above: Performed By: #### C BC ####[facility] Ebydpyym[address] [place], [place] [address]Dr. Slick Broderick NEUT # 6.4 103/ul Normal 1.4-6.5 [facility] Comment on above: Performed By: #### C BC ####[facility] Mbcmctziqt[address] [place], [place] [address]Dr. Slick Broderick Neutrophils/100 WBC (Bld) 71.2 % Normal 43.0-75.0 [facility] Comment on above: Performed By: #### C BC ####[facility] Yrjdfr[address] [place], [place] [address]Dr. Slick Broderick Platelet mean volume (Bld) [Entitic vol] 9.8 fL Normal 9.5-13.5 [facility] Comment on above: Performed By: #### C BC ####[facility] Phikozsyqr[address] [place], [place] [address]Dr. Slick Broderick PLT 174 103/ul Normal 150-450 The [facility] Comment on above: Performed By: #### C BC ####[facility] [address] [place], [place] [address]Dr. Slick Davie RBC 3.25 106/ul Critically low 4.20-5.40 The [facility] Comment on above: Performed By: #### C BC ####[facility] Gonuvfsphk6986 [place] [id number]. Slick Broderick WBC 8.9 103/ul Normal 4.0-11.0 [facility] Comment on above: Performed By: #### C BC ####[facility] Ysflfohnup1235 [place] [id number]. Slick Broderick CRPon 10-14-2022 CRP 0.5 mg/dL Normal <=1.0 [facility] Comment on above: Performed By: #### C RP, BMP ####[facility] Ghrlifguxl5324 [place] [address]Dr. Slick Broderick D-DIMERon 10-14-2022 D-DIMER 0.86 mg/L FEU Critically high <=0.59 [facility] Comment on above: Performed By: #### D DIM ####[facility] Ykndl[address] [place], [place] [address]Dr. Slick Broderick D-DIMER COMMENTS SEE BELOW Normal The [facility] Comment on above: Result Comment: [...] generalized hospitalization. Performed By: #### D DIM ####[facility] Gkxllsaqgk0905 [place] [address]Dr. Slick Broderick PROF CHEM 8 (BAS METB)on Anion gap [Moles/Vol] 10.1 mmol/L Normal [facility] Comment on above: Performed By: #### C RP, BMP ####[facility] Oqqsrtojen6786 [place] [address]Dr. Slick Broderick Calcium [Mass/Vol] 9.3 mg/dL Normal 8.5-10.1 [facility] Comment on above: Performed By: #### C RP, BMP ####[facility] Tkjxjpbmom4535 [place] [phone]. Slick Broderick Chloride [Moles/Vol] 98 mmol/L Normal 98-107 [facility] Comment on above: Performed By: #### C RP, BMP ####[facility] Oxgxqbhfie2313 [place] [phone]. Slick Broderick CO2 [Moles/Vol] 30.3 mmol/L Normal 21.0-32.0 [facility] Comment on above: Performed By: #### C RP, BMP ####[facility] Ynohbjrtbk7805 [place] [address]Dr. Slick Broderick Creatinine [Mass/Vol] 2.15 mg/dL Critically high 0.55-1.02 [facility] Comment on above: Performed By: #### C RP, BMP ####[facility] Yzfbhruzdk22[address] [place] [address]Dr. Slick Davie EGFR-AF BURMESE 27 mL/min/1.73m2 Critically low >=60 [facility] Comment on above: Performed By: #### C RP, BMP ####[facility] Ecrdgbnsog5093 [place] [phone]. Slick Broderick EGFR-NON AF BURMESE 22 mL/min/1.73m2 Critically low >=60 [facility] Comment on above: Performed By: #### C RP, BMP ####[facility] Okzushjami2730 [place] [phone]. Slick Broderick Glucose [Mass/Vol] 116 mg/dL Critically high 74-106 [facility] Comment on above: Performed By: #### C RP, BMP ####[facility] Hwzqxhnilu3357 [place] [address]Dr. Slick Broderick Potassium [Moles/Vol] 4.4 mmol/L Normal 3.5-5.1 [facility] Comment on above: Performed By: #### C RP, BMP ####[facility] Kztpjljoep5051 [place] [phone]. Meaganwendie Broderick Sodium [Moles/Vol] 134 mmol/L Critically low 136-145 [facility] Comment on above: Performed By: #### C RP, BMP ####[facility] Rbbendbviy2592 [place] [address]Dr. Slick Broderick Urea nitrogen [Mass/Vol] 33.0 mg/dL Critically high 7.0-18.0 [facility] Comment on above: Performed By: #### C RP, BMP ####[facility] Lqtljolowb6537 [place] [address]Dr. Slick Broderick Urea nitrogen/Creatinine [Mass ratio] 15.3 mg/mg Normal [facility] Comment on above: Performed By: #### C RP, BMP ####[facility] Jmbucukbcm25[address] [place] [address]Dr. Slick Broderick US JENNY DOP LEG LTon 10-15-19 23 US JENNY DOP LEG LT Normal [facility] XR FEMUR LTon 10-14-2022 XR FEMUR LT Normal The [facility] ECHOCARDIO M/2D COMPLETEon 0 09-14-2022 ECHOCARDIO M/2D COMPLETE Normal The [facility] PRBC LEUKOREDUCEDon 06-09-20 22 PRBC LEUKOREDUCED Normal [facility] Comment on above: Performed By: #### P RBC ####[facility] Gwpi[address] [place], [place] [address]Dr. Meaganwendie Broderick BNPon 04-23-2022 Natriuretic peptide B (Bld) [Mass/Vol] 66519.0 pg/mL Critically high <=900.0 [facility] Comment on above: Performed By: #### C MP, CMADM, BNP ####[facility] Ellmrzhljd6[address] [place] [address]Dr. Slick Broderick CARDIAC REYMUNDO ADMITon 022 CK [Catalytic activity/Vol] 121 U/L Normal 26-192 The [facility] Comment on above: Performed By: #### C MP, CMADM, BNP ####[facility] Utswqjflcq1367 [place] [address]Dr. Slick Broderick CK.MB [Mass/Vol] 5.67 ng/mL Critically high <=3.60 The [facility] Comment on above: Performed By: #### C MP, CMADM, BNP ####[facility] Jcuvrqgmjz7484 [place] [phone]. Slick Broderick HSTROP 3667.9 pg/mL Critically high 4.0-51.3 [facility] Comment on above: Result Comment: CUT- OFF POINTS HAVE BEEN ESTABLISHED BASED ON THE FOURTH UNIVERSAL DEFINITIONS OF MYOCARDIALINFARCTION. THE UPPER REFERENCE LIMIT (URL) OF TROPONIN, DEFINED THE 99TH PERCENTILE OFcTnI DISTRIBUTION IN A REFERENCE POPULATION, HAS BEEN CONFIRMED THE DECISION THRESHOLDFOR RI DIAGNOSIS. Performed By: #### C MP, CMADM, BNP ####[facility] Mosqlurvjk3728 [place] [phone]. Slick Davie NEHEMIAH 225 ng/mL Critically high 9-[address] [facility] Comment on above: Performed By: #### C MP, CMADM, BNP ####[facility] Dayjpgufpl7536 [place] [phone]. Slick Broderick CBC AUTO DIFFon 04-23-2022 BASO # 0.0 103/ul Normal 0.0-0.1 [facility] Comment on above: Performed By: #### C BC ####[facility] Mjigcrlfty5637 [place] [address]Dr. Meaganwendie Broderick Basophils/100 WBC (Bld) 0.3 % Normal 0.2-2.0 [facility] Comment on above: Performed By: #### C BC ####[facility] Gjkmzoltxw2056 [place] [address]Dr. Meaganwendie Broderick EO # 0.0 103/ul Normal 0.0-0.7 [facility] Comment on above: Performed By: #### C BC ####[facility] Ucicvbvqil4131 [place] [address]Dr. Slick Broderick Eosinophils/100 WBC (Bld) 0.3 % Critically low 0.9-7.0 [facility] Comment on above: Performed By: #### C BC ####[facility] Eomdqwdrok5412 [place] [address]Dr. Slick Broderick Erythrocyte distribution width (RBC) [Ratio] 14.0 % Normal 11.0-15.0 [facility] Comment on above: Performed By: #### C BC ####[facility] Edotasnwqd1982 [place] [address]Dr. Slick Broderick Hematocrit (Bld) [Volume fraction] 21.9 % Critically low 36.0-48.0 [facility] Comment on above: Performed By: #### C BC ####[facility] Hiowtwzgko4258 [place] [address]Dr. Slick Davie Hemoglobin (Bld) [Mass/Vol] 7.1 g/dL Critically low 12.0-16.0 [facility] Comment on above: Performed By: #### C BC ####[facility] Szaijmdkaa[address] [place], [place] [address]Dr. Slick Broderick IG # 0.04 10e3/ul Critically high 0.00-0.03 [facility] Comment on above: Performed By: #### C BC ####[facility] Hbgcfutgpp[address] [place], [place] [address]Dr. Slick Broderick IG % 0.4 % Normal 0.0-0.5 [facility] Comment on above: Performed By: #### C BC ####[facility] Zjnrxkmdnf[address] [place], [place] [address]DrEmma Slick Davie LYMPH # 0.8 103/ul Critically low 1.2-3.8 [facility] Comment on above: Performed By: #### C BC ####[facility] Omdbaolxfd4[address] [place], [place] [address]DrEmma Broderick Lymphocytes/100 WBC (Bld) 7.7 % Critically low 20.5-60.0 The [facility] Comment on above: Performed By: #### C BC ####[facility] Xyrnxxuzoe[address] [place], [place] [address]DrEmma Broderick MANUAL DIFF REQ NO Normal [facility] Comment on above: Performed By: #### C BC ####[facility] Mvnhngeyjf[address] [place], [place] [address]DrEmma Broderick MCH (RBC) [Entitic mass] 29.3 pg Normal 26.7-34.0 [facility] Comment on above: Performed By: #### C BC ####[facility] Twekxjubpc2247 [place] [id number]. Slick Davie MCHC (RBC) [Mass/Vol] 32.4 g/dL Normal 29.9-35.2 [facility] Comment on above: Performed By: #### C BC ####[facility] Vmndysgckt2049 [place] [id number]. Slick Broderick MCV (RBC) [Entitic vol] 90.5 fL Normal 81.0-99.0 [facility] Comment on above: Performed By: #### C BC ####[facility] Dfckjqgolv80[address] [place], [place] [address]Dr. Slick Broderick MONO # 1.0 103/ul Critically high 0.3-0.[address] [facility] Comment on above: Performed By: #### C BC ####[facility] Asuipcpynz[address] [place], [place] [address]Dr. Slick Broderick Monocytes/100 WBC (Bld) 9.6 % Normal 1.7-12.0 [facility] Comment on above: Performed By: #### C BC ####[facility] Wtzmrvtmjj[address] [place], [place] [address]Dr. Slick Broderick NEUT # 8.6 103/ul Critically high 1.4-6.5 The [facility] Comment on above: Performed By: #### C BC ####[facility] Iglffkrvwx61[address] [place], [place] [address]Dr. Slick Broderick Neutrophils/100 WBC (Bld) 81.7 % Critically high 43.0-75.0 [facility] Comment on above: Performed By: #### C BC ####[facility] Rfbqfjfzha[address] [place], [place] [address]Dr. Slick Broderick Platelet mean volume (Bld) [Entitic vol] 10.0 fL Normal 9.5-13.5 [facility] Comment on above: Performed By: #### C BC ####[facility] Nvsmiuucmq[address] [place], [place] [address]Dr. Slick Broderick PLT 195 103/ul Normal 150-450 [facility] Comment on above: Performed By: #### C BC ####[facility] Nwxctnjqnm6951 [place], [place] [address]Ls. Slick Broderick RBC 2.42 106/ul Critically low 4.20-5.40 [facility] Comment on above: Performed By: #### C BC ####[facility] Uqmzgbnuym6662 [place], [place] [address]Ib. Slick Broderick WBC 10.5 103/ul Normal 4.0-11.0 [facility] Comment on above: Performed By: #### C BC ####[facility] Jsairrkkue0086 [place], [place] [address]Xh. Slick Bro[address] CT HEAD WO CONon 04-23-2022 CT HEAD WO CON Normal [facility] CULTURE BLOODon 04-23-2022 Microscopic examination of blood, culture Culture Observations: NO GROWTH AT 5 DAYS. Normal The [facility] Comment on above: Performed By: #### B LDCX2 ####[facility] Nshamaajer8995 [place], [place] [address]Fi. Slick Brodreick Microscopic examination of blood, culture Culture Observations: NO GROWTH AT 5 DAYS. Normal [facility] Comment on above: Performed By: #### B LDCX1 ####[facility] Qqdnpnidmg6449 [place] [id number]. Slick Broderick Covid-19 PCR (CVDTB)on 04-12 SARS-CoV-2 (COVID-19) RNA DONNIE+probe Ql (Unsp spec) Not detected Normal NOT DETECTED The [facility] Comment on above: Result Comment: When diagnostic [...] for this test is supported by the [place] of [employer] and Human Service's declaration that [...] be used). Performed By: #### C VDTBH ####[facility] Viatpkirww9945 [place] [address]Dr. Slick Broderick LACTATE/LACTIC ACIDon 2021 Lactate [Moles/Vol] 1.2 mmol/L Normal 0.4-1.9 [facility] Comment on above: Performed By: #### L ACT ####[facility] Igzxsvvikk[address] [place], [place] [address]Dr. Slick Broderick PROF 14(COMP METB)on 022 Albumin [Mass/Vol] 2.9 g/dL Critically low 3.4-5.0 [facility] Comment on above: Performed By: #### C MP, CMADM, BNP ####[facility] Aqbywfpbtn3549 [place] [address]Dr. Slick Broderick Albumin/Globulin [Mass ratio] 0.9 {ratio} Normal [facility] Comment on above: Performed By: #### C MP, CMADM, BNP ####[facility] Gfdetexkhx2089 [place] [address]Dr. Slick Broderick ALP [Catalytic activity/Vol] 88 U/L Normal 46-116 [facility] Comment on above: Performed By: #### C MP, CMADM, BNP ####[facility] Scirimblwh4190 [place] [address]Dr. Slick Broderick ALT [Catalytic activity/Vol] 22 U/L Normal 14-59 [facility] Comment on above: Performed By: #### C MP, CMADM, BNP ####[facility] Bdzgshwagz4492 [place] [address]Dr. Slick Broderick Anion gap [Moles/Vol] 14.0 mmol/L Normal [facility] Comment on above: Performed By: #### C MP, CMADM, BNP ####[facility] Gnpgqbkyaa6203 [place] [address]Dr. Slick Broderick AST [Catalytic activity/Vol] 26 U/L Normal 15-37 The [facility] Comment on above: Performed By: #### C MP, CMADM, BNP ####[facility] Yfzsrkmhnj1762 [place] [address]Dr. Slick Broderick Bilirubin [Mass/Vol] 0.5 mg/dL Normal 0.2-1.0 [facility] Comment on above: Performed By: #### C MP, CMADM, BNP ####[facility] Rocgyvonjq2613 [place] [address]Dr. Slick Broderick Calcium [Mass/Vol] 9.7 mg/dL Normal 8.5-10.1 [facility] Comment on above: Performed By: #### C MP, CMADM, BNP ####[facility] Cdzejwlosm4537 [place] [address]Dr. Slick Broderick Chloride [Moles/Vol] 105 mmol/L Normal 98-107 The [facility] Comment on above: Performed By: #### C MP, CMADM, BNP ####[facility] Qhhxumxhdg9000 [place] [address]Dr. Slick Broderick CO2 [Moles/Vol] 27.0 mmol/L Normal 21.0-32.0 The [facility] Comment on above: Performed By: #### C MP, CMADM, BNP ####[facility] Ponmgukgyt5409 [place] [address]Dr. Slick Broderick Creatinine [Mass/Vol] 1.57 mg/dL Critically high 0.55-1.02 [facility] Comment on above: Performed By: #### C MP, CMADM, BNP ####[facility] Arjclldzob1190 [place] [address]Dr. Slick Broderick EGFR-AF BURMESE 39 mL/min/1.73m2 Critically low >=60 The [facility] Comment on above: Performed By: #### C MP, CMADM, BNP ####[facility] Ltrryzeqrr7202 [place] [address]Dr. Slick Broderick EGFR-NON AF BURMESE 32 mL/min/1.73m2 Critically low >=60 [facility] Comment on above: Performed By: #### C MP, CMADM, BNP ####[facility] Vvwtfoclqa6129 [place] [address]Dr. Slick Broderick Globulin (S) [Mass/Vol] 3.2 g/dL Normal [facility] Comment on above: Performed By: #### C MP, CMADM, BNP ####[facility] Drjeyemief9411 [place] [address]Dr. Slick Broderick Glucose [Mass/Vol] 128 mg/dL Critically high 74-106 [facility] Comment on above: Performed By: #### C MP, CMADM, BNP ####[facility] Vulaibwqgs2182 [place] [address]Dr. Slick Broderick Potassium [Moles/Vol] 4.0 mmol/L Normal 3.5-5.1 [facility] Comment on above: Performed By: #### C MP, CMADM, BNP ####[facility] E[address]rmmqlcpk[address] [place], [place] [address]Dr. Slick Broderick Protein [Mass/Vol] 6.1 g/dL Critically low 6.4-8.2 [facility] Comment on above: Performed By: #### C MP, CMADM, BNP ####[facility] Teimfzfpum6318 [place] [address]Dr. Slick Broderick Sodium [Moles/Vol] 142 mmol/L Normal 136-145 [facility] Comment on above: Performed By: #### C MP, CMADM, BNP ####[facility] Kgnvfzcmtv5150 [place] [address]Dr. Slick Broderick Urea nitrogen [Mass/Vol] 34.0 mg/dL Critically high 7.0-18.0 [facility] Comment on above: Performed By: #### C MP, CMADM, BNP ####[facility] Pxxliykaiz1369 [place] [address]Dr. Slick Broderick Urea nitrogen/Creatinine [Mass ratio] 21.7 mg/mg Normal [facility] Comment on above: Performed By: #### C MP, CMADM, BNP ####[facility] Phzvvksdvg9660 [place] [address]Dr. Slick Broderick PROTIMEon 04-23-2022 INR Coag (PPP) [Relative time] 1.10 {INR} Normal The [facility] Comment on above: Performed By: #### P T, PTT ####[facility] Scmmcjvqfj5998 [place] [address]Dr. Slick Broderick INR GUIDELINES SEE BELOW Normal [facility] Comment on above: Result Comment: EDMUND RED INR: 2.0 - 3.0 CONDITIONS NOT LISTED BELOW 2.5 - 3.5 FOR PROSTHETIC HEART VALVE REPLACEMENT 2.5 - 3.5 RECURRENT THROMBOSIS Performed By: #### P T, PTT ####[facility] [address]fjwbece[address] [place], [place] [address]Dr. Slick Broderick PT Coag (PPP) [Time] 11.8 s Critically high 9.0-11.6 The [facility] Comment on above: Performed By: #### P T, PTT ####[facility] Hlvvrzxmir[address] [place], [place] [address]Dr. Slick Broderick PTTon 04-23-2022 aPTT Coag (Bld) [Time] 27.7 s Normal 22.3-36.2 [facility] Comment on above: Performed By: #### P T, PTT ####[facility] Ogpqbuwadn[address] [place], [place] [address]Dr. Slick Broderick TYPE AND SCREENon 04-23-2022 TYPE AND SCREEN Negative Normal [facility] Comment on above: Performed By: #### T NS ####The [facility] Ogthiwiymm[address] [place], [place] [address]Dr. Slick Broderick XR CHEST 1 Von 04-23-2022 XR CHEST 1 V Normal The [facility] CBC AUTO DIFFon 04-22-2022 BASO # 0.0 103/ul Normal 0.0-0.1 [facility] Comment on above: Performed By: #### C BC ####[facility] Oapzmeyvtu[address] [place], [place] [address]Dr. Slick Broderick Basophils/100 WBC (Bld) 0.3 % Normal 0.2-2.0 [facility] Comment on above: Performed By: #### C BC ####[facility] Fkgzfiwoio4981 [place] [id number]. Slick Broderick EO # 0.1 103/ul Normal 0.0-0.7 [facility] Comment on above: Performed By: #### C BC ####[facility] Thklxrecsc4545 [place] [address]Dr. Slick Broderick Eosinophils/100 WBC (Bld) 1.4 % Normal 0.9-7.0 [facility] Comment on above: Performed By: #### C BC ####[facility] Rcvlwtcerm[address] [place], [place] [address]Dr. Slick Broderick Erythrocyte distribution width (RBC) [Ratio] 13.8 % Normal 11.0-15.0 [facility] Comment on above: Performed By: #### C BC ####[facility] Esrrtcrsuv[address] [place], [place] [address]Dr. Slick Broderick Hematocrit (Bld) [Volume fraction] 27.4 % Critically low 36.0-48.0 [facility] Comment on above: Performed By: #### C BC ####[facility] Nkvsiqikci[address] [place], [place] [address]Dr. Slick Broderick Hemoglobin (Bld) [Mass/Vol] 8.8 g/dL Critically low 12.0-16.0 [facility] Comment on above: Performed By: #### C BC ####[facility] Sorikzwdfn9274 [place] [phone]. Slick Broderick IG # 0.04 10e3/ul Critically high 0.00-0.03 The [facility] Comment on above: Performed By: #### C BC ####[facility] Ixyshxzrgx[address] [place], [place] [address]Dr. Slick Broderick IG % 0.6 % Critically high 0.0-0.5 The [facility] Comment on above: Performed By: #### C BC ####[facility] Hveajkxckl0527 [place] [address]Dr. Slick Broderick LYMPH # 0.7 103/ul Critically low 1.2-3.8 [facility] Comment on above: Performed By: #### C BC ####[facility] Ifaipxdhnd9781 [place] [address]Dr. Meaganwendie Broderick Lymphocytes/100 WBC (Bld) 9.8 % Critically low 20.5-60.0 [facility] Comment on above: Performed By: #### C BC ####[facility] Sxlehsixqk8084 [place] [address]Dr. Slick Broderick MANUAL DIFF REQ NO Normal [facility] Comment on above: Performed By: #### C BC ####[facility] Bvrzhdyylk7545 [place] [address]Dr. Meaganwendie Broderick MCH (RBC) [Entitic mass] 28.9 pg Normal 26.7-34.0 [facility] Comment on above: Performed By: #### C BC ####[facility] Wtlortscmf[address] [place], [place] [address]Dr. Slick Broderick MCHC (RBC) [Mass/Vol] 32.1 g/dL Normal 29.9-35.2 [facility] Comment on above: Performed By: #### C BC ####[facility] Cechzkckve0262 [place] [address]Dr. Slick Broderick MCV (RBC) [Entitic vol] 90.1 fL Normal 81.0-99.0 [facility] Comment on above: Performed By: #### C BC ####[facility] Jexpidyydg5351 [place] [address]Dr. Slick Broderick MONO # 0.6 103/ul Normal 0.3-0.8 [facility] Comment on above: Performed By: #### C BC ####[facility] Mirtvyochh[address] [place], [place] [address]Dr. Slick Broderick Monocytes/100 WBC (Bld) 7.6 % Normal 1.7-12.0 [facility] Comment on above: Performed By: #### C BC ####[facility] Crbugbvibs7219 [place] [id number]. Slick Broderick NEUT # 5.9 103/ul Normal 1.4-6.5 [facility] Comment on above: Performed By: #### C BC ####[facility] Wodvlkrkqw7933 [place] [address]Dr. Slick Broderick Neutrophils/100 WBC (Bld) 80.3 % Critically high 43.0-75.0 The [facility] Comment on above: Performed By: #### C BC ####[facility] Fhksrpzpkm4700 [place] [address]Dr. Slick Broderick Platelet mean volume (Bld) [Entitic vol] 9.5 fL Normal 9.5-13.5 The [facility] Comment on above: Performed By: #### C BC ####[facility] Nscryahyvb97[address] [place], [place] [address]Dr. Slick Broderick PLT 204 103/ul Normal 150-450 The [facility] Comment on above: Performed By: #### C BC ####[facility] Unhycbhgai[address] [place], [place] [address]Dr. Slick Broderick RBC 3.04 106/ul Critically low 4.20-5.40 The [facility] Comment on above: Performed By: #### C BC ####[facility] Vkjjlmqcwc32[address] [place], [place] [address]Dr. Slick Broderick WBC 7.3 103/ul Normal 4.0-11.0 The [facility] Comment on above: Performed By: #### C BC ####[facility] Rkwjteghfb6[address] [place], [place] [address]Dr. Slick Broderick BASO # 0.0 103/ul Normal 0.0-0.1 The [facility] Comment on above: Performed By: #### C BC ####[facility] Lbyqxfzpjt[address] [place], [place] [id number]. Slick Broderick Basophils/100 WBC (Bld) 0.5 % Normal 0.2-2.0 [facility] Comment on above: Performed By: #### C BC ####[facility] Zx[address]ppsjvsg[address] [place], [place] [id number]. Slick Broderick EO # 0.6 103/ul Normal 0.0-0.7 The [facility] Comment on above: Performed By: #### C BC ####[facility] Bdbkfipcns8770 [place] [address]Dr. Slick Broderick Eosinophils/100 WBC (Bld) 10.4 % Critically high 0.9-7.0 The [facility] Comment on above: Performed By: #### C BC ####[facility] Enidimvmsc0442 [place] [address]Dr. Slick Broderick Erythrocyte distribution width (RBC) [Ratio] 14.0 % Normal 11.0-15.0 The [facility] Comment on above: Performed By: #### C BC ####[facility] Zzxmieaokk4[address] [place], [place] [address]Dr. Slick Broderick Hematocrit (Bld) [Volume fraction] 26.5 % Critically low 36.0-48.0 The [facility] Comment on above: Performed By: #### C BC ####[facility] Fhtmhnrgif6[address] [place], [place] [address]Dr. Slick Broderick Hemoglobin (Bld) [Mass/Vol] 8.4 g/dL Critically low 12.0-16.0 The [facility] Comment on above: Performed By: #### C BC ####[facility] Gvrjhvleaq[address] [place], [place] [address]Dr. Slick Broderick IG # 0.02 10e3/ul Normal 0.00-0.03 The [facility] Comment on above: Performed By: #### C BC ####[facility] Azuaokesyi1855 [place] [address]Dr. Slick Broderick IG % 0.4 % Normal 0.0-0.5 The [facility] Comment on above: Performed By: #### C BC ####[facility] Pkfzmlpusu7[address] [place], [place] [address]Dr. Slick Broderick LYMPH # 0.9 103/ul Critically low 1.2-3.8 The [facility] Comment on above: Performed By: #### C BC ####[facility] Nvfcsessbw4378 [place] [address]Dr. Slick Broderick Lymphocytes/100 WBC (Bld) 15.6 % Critically low 20.5-60.0 [facility] Comment on above: Performed By: #### C BC ####[facility] Rosjewfcxs6781 [place] [address]Dr. Meaganwendie Broderick MANUAL DIFF REQ NO Normal [facility] Comment on above: Performed By: #### C BC ####[facility] Gdqnqenggn07[address] [place], [place] [address]Dr. Meaganwendie Broderick MCH (RBC) [Entitic mass] 29.2 pg Normal 26.7-34.0 [facility] Comment on above: Performed By: #### C BC ####[facility] Rgmvdldmbr[address] [place], [place] [address]Dr. Slick Broderick MCHC (RBC) [Mass/Vol] 31.7 g/dL Normal 29.9-35.2 [facility] Comment on above: Performed By: #### C BC ####[facility] Yikevnvnyu[address] [place], [place] [address]Dr. Slick Broderick MCV (RBC) [Entitic vol] 92.0 fL Normal 81.0-99.0 [facility] Comment on above: Performed By: #### C BC ####[facility] Haaydstacw[address] [place], [place] [address]Dr. Slick Broderick MONO # 0.6 103/ul Normal 0.3-0.8 [facility] Comment on above: Performed By: #### C BC ####[facility] Jvtquwkaem[address] [place], [place] [address]Dr. Slick Broderick Monocytes/100 WBC (Bld) 10.1 % Normal 1.7-12.0 [facility] Comment on above: Performed By: #### C BC ####[facility] Hseqqsjuaz04[address] [place], [place] [address]Dr. Slick Broderick NEUT # 3.5 103/ul Normal 1.4-6.5 [facility] Comment on above: Performed By: #### C BC ####[facility] Rnoqubtxij5016 [place] [address]Dr. Slick Broderick Neutrophils/100 WBC (Bld) 63.0 % Normal 43.0-75.0 [facility] Comment on above: Performed By: #### C BC ####[facility] Jclhjicxvu4171 [place] [address]Dr. Slick Broderick Platelet mean volume (Bld) [Entitic vol] 10.0 fL Normal 9.5-13.5 [facility] Comment on above: Performed By: #### C BC ####[facility] Jsoekysofh7047 [place] [address]Dr. Slick Broderick PLT 198 103/ul Normal 150-450 [facility] Comment on above: Performed By: #### C BC ####[facility] Ygecieybvv[address] [place], [place] [address]Dr. Slick Broderick RBC 2.88 106/ul Critically low 4.20-5.[address] [facility] Comment on above: Performed By: #### C BC ####[facility] Jyohmufmwb50[address] [place], [place] [address]Dr. Slick Broderick WBC 5.6 103/ul Normal 4.0-11.0 [facility] Comment on above: Performed By: #### C BC ####[facility] Hlfowfkkvf4[address] [place], [place] [address]Dr. Slick Broderick CT HEAD WO CONon 04-22-2022 CT HEAD WO CON Normal [facility] POINT OF CARE GLUCOSEon 04-12 Glucose [Mass/Vol] 110 mg/dL Critically high 74-106 [facility] Comment on above: Performed By: #### P OCGLUC ####[facility] Szaelmjmuv9[address] [place], [place] [address]Dr. Slick Broderick PROF 14(COMP METB)on 022 Albumin [Mass/Vol] 3.0 g/dL Critically low 3.4-5.0 [facility] Comment on above: Performed By: #### C MP ####[facility] Dnsyhbhmkp15[address] [place], [place] [address]Dr. Slick Broderick Albumin/Globulin [Mass ratio] 0.9 {ratio} Normal [facility] Comment on above: Performed By: #### C MP ####[facility] Igfyebztct0693 [place] [address]Dr. Slick Broderick ALP [Catalytic activity/Vol] 93 U/L Normal 46-116 [facility] Comment on above: Performed By: #### C MP ####[facility] Otffatptqb4146 [place] [address]Dr. Slick Davie ALT [Catalytic activity/Vol] 22 U/L Normal 14-59 [facility] Comment on above: Performed By: #### C MP ####[facility] Kecoclbxuj[address] [place], [place] [address]Dr. Slick Broderick Anion gap [Moles/Vol] 8.9 mmol/L Normal [facility] Comment on above: Performed By: #### C MP ####[facility] Jhapawlcuc8[address] [place], [place] [address]Dr. Slick Broderick AST [Catalytic activity/Vol] 18 U/L Normal 15-37 [facility] Comment on above: Performed By: #### C MP ####[facility] Mfijoojqlp4[address] [place], [place] [address]Dr. Meaganwendie Davie Bilirubin [Mass/Vol] 0.3 mg/dL Normal 0.2-1.0 [facility] Comment on above: Performed By: #### C MP ####[facility] Xynjepgsfr3467[address] [place], [place] [address]Dr. Slick Broderick Calcium [Mass/Vol] 9.6 mg/dL Normal 8.5-10.1 [facility] Comment on above: Performed By: #### C MP ####[facility] Lhdohgzszp[address] [place], [place] [address]Dr. Slick Broderick Chloride [Moles/Vol] 104 mmol/L Normal 98-107 [facility] Comment on above: Performed By: #### C MP ####[facility] Ucpwelfgaa8631 [place] [address]Dr. Slick Broderick CO2 [Moles/Vol] 30.8 mmol/L Normal 21.0-32.0 [facility] Comment on above: Performed By: #### C MP ####[facility] Tqixinfbnl5405 [place] [phone]. Slick Broderick Creatinine [Mass/Vol] 1.73 mg/dL Critically high 0.55-1.02 [facility] Comment on above: Performed By: #### C MP ####[facility] Ytzladmqud5630 [place] [id number]. Slick Broderick EGFR-AF BURMESE 35 mL/min/1.73m2 Critically low >=60 [facility] Comment on above: Performed By: #### C MP ####[facility] Akfxeqtlpm7130 [place] [phone]. Slick Broderick EGFR-NON AF BURMESE 29 mL/min/1.73m2 Critically low >=60 [facility] Comment on above: Performed By: #### C MP ####[facility] Sljtzsiauz6394 [place] [phone]. Slick Davie Globulin (S) [Mass/Vol] 3.4 g/dL Normal [facility] Comment on above: Performed By: #### C MP ####[facility] Zgqeywfozo5606 [place] [phone]. Slick Broderick Glucose [Mass/Vol] 94 mg/dL Normal 74-106 [facility] Comment on above: Performed By: #### C MP ####[facility] Ergssbsoyc1603 [place] [phone]. Slick Broderick Potassium [Moles/Vol] 4.7 mmol/L Normal 3.5-5.1 [facility] Comment on above: Performed By: #### C MP ####[facility] Mpcyfbkevn4375 [place] [phone]. Slick Broderick Protein [Mass/Vol] 6.4 g/dL Normal 6.4-8.2 [facility] Comment on above: Performed By: #### C MP ####[facility] Xexbcfdqej6389 [place] [phone]. Slick Broderick Sodium [Moles/Vol] 139 mmol/L Normal 136-145 [facility] Comment on above: Performed By: #### C MP ####[facility] Vgyjeduvml0349 [place] [address]Dr. Slick Broderick Urea nitrogen [Mass/Vol] 46.0 mg/dL Critically high 7.0-18.0 [facility] Comment on above: Performed By: #### C MP ####[facility] Tzagibiimb6871 [place] [address]Dr. Slick Broderick Urea nitrogen/Creatinine [Mass ratio] 26.6 mg/mg Normal The [facility] Comment on above: Performed By: #### C MP ####[facility] Uqskgonukz2266 [place] [address]Dr. Slick Broderick PROF CHEM 8 (BAS METB)on Anion gap [Moles/Vol] 8.6 mmol/L Normal [facility] Comment on above: Performed By: #### B MP ####[facility] Ogravvnush[address] [place], [place] [address]Dr. Slick Broderick Calcium [Mass/Vol] 9.9 mg/dL Normal 8.5-10.1 The [facility] Comment on above: Performed By: #### B MP ####[facility] Tkrwembyva70[address] [place], [place] [address]Dr. Slick Broderick Chloride [Moles/Vol] 103 mmol/L Normal 98-107 The [facility] Comment on above: Performed By: #### B MP ####[facility] Potquvrizx[address] [place], [place] [address]Dr. Slick Broderick CO2 [Moles/Vol] 29.5 mmol/L Normal 21.0-32.0 The [facility] Comment on above: Performed By: #### B MP ####[facility] Yeyesjymsn75[address] [place], [place] [address]Dr. Slick Broderick Creatinine [Mass/Vol] 1.62 mg/dL Critically high 0.55-1.02 [facility] Comment on above: Performed By: #### B MP ####[facility] Cychlfcoyf5[address] [place], [place] [address]Dr. Slick Broderick EGFR-AF BURMESE 38 mL/min/1.73m2 Critically low >=60 [facility] Comment on above: Performed By: #### B MP ####[facility] Ztgqgsfhjj1464 [place] [address]Dr. Slick Broderick EGFR-NON AF BURMESE 31 mL/min/1.73m2 Critically low >=60 [facility] Comment on above: Performed By: #### B MP ####[facility] Hatuhmldwp2683 [place] [address]Dr. Slick Broderick Glucose [Mass/Vol] 125 mg/dL Critically high 74-106 [facility] Comment on above: Performed By: #### B MP ####[facility] Gtctuatyje05[address] [place], [place] [address]Dr. Slick Broderick Potassium [Moles/Vol] 4.1 mmol/L Normal 3.5-5.1 [facility] Comment on above: Performed By: #### B MP ####[facility] Zrrcmnpyrz40[address] [place], [place] [address]Dr. Slick Broderick Sodium [Moles/Vol] 137 mmol/L Normal 136-145 [facility] Comment on above: Performed By: #### B MP ####[facility] Rkaobtrnbr7564[address] [place], [place] [address]Dr. Slick Broderick Urea nitrogen [Mass/Vol] 41.0 mg/dL Critically high 7.0-18.0 [facility] Comment on above: Performed By: #### B MP ####[facility] Cswsxpzvlr[address] [place], [place] [address]Dr. Slick Broderick Urea nitrogen/Creatinine [Mass ratio] 25.3 mg/mg Normal [facility] Comment on above: Performed By: #### B MP ####[facility] Lvqjkklvng94[address] [place], [place] [address]Dr. Silck Broderick PROTIMEon 04-22-2022 INR Coag (PPP) [Relative time] 1.08 {INR} Normal [facility] Comment on above: Performed By: #### P T, PTT ####[facility] Vxufnuirzv17[address] [place], [place] [address]Dr. Slick Broderick INR GUIDELINES SEE BELOW Normal [facility] Comment on above: Result Comment: EDMUND RED INR: 2.0 - 3.0 CONDITIONS NOT LISTED BELOW 2.5 - 3.5 FOR PROSTHETIC HEART VALVE REPLACEMENT 2.5 - 3.5 RECURRENT THROMBOSIS Performed By: #### P T, PTT ####[facility] Yuapubsosl12[address] [place], [place] [address]Dr. Slick Broderick PT Coag (PPP) [Time] 11.6 s Normal 9.0-11.6 [facility] Comment on above: Performed By: #### P T, PTT ####[facility] Uemxqdnunp55[address] [place], [place] [address]Dr. Slick Broderick PTTon 04-22-2022 aPTT Coag (Bld) [Time] 30.7 s Normal 22.3-36.2 Th [facility] Comment on above: Performed By: #### P T, PTT ####[facility] Kttamecsic50[address] [place], [place] [address]Dr. Slick Broderick XR TIB_FIB RT 2Von 2 XR TIB_FIB RT 2V Normal The [facility] CBC AUTO DIFFon 04-21-2022 BASO # 0.0 103/ul Normal 0.0-0.1 [facility] Comment on above: Performed By: #### C BC ####[facility] Qidmxshlzm075[address] [place], [place] [address]Dr. Slick Broderick Basophils/100 WBC (Bld) 0.3 % Normal 0.2-2.0 [facility] Comment on above: Performed By: #### C BC ####[facility] Azxioxzpuh05[address] [place], [place] [address]Dr. Slick Broderick EO # 0.6 103/ul Normal 0.0-0.7 [facility] Comment on above: Performed By: #### C BC ####[facility] Poukacpgtr[address] [place], [place] [address]Dr. Slick Broderick Eosinophils/100 WBC (Bld) 10.2 % Critically high 0.9-7.0 [facility] Comment on above: Performed By: #### C BC ####[facility] Ezivhgtokw0115 [place] [address]Dr. Slick Brodreick Erythrocyte distribution width (RBC) [Ratio] 14.2 % Normal 11.0-15.0 [facility] Comment on above: Performed By: #### C BC ####[facility] Jkmifgfhcw1847 [place] [address]Dr. Slick Broderick Hematocrit (Bld) [Volume fraction] 25.5 % Critically low 36.0-48.0 [facility] Comment on above: Performed By: #### C BC ####[facility] Gkcuilsdtl7749 [place] [address]Dr. Slick Broderick Hemoglobin (Bld) [Mass/Vol] 8.1 g/dL Critically low 12.0-16.0 [facility] Comment on above: Performed By: #### C BC ####[facility] Gvblyqoale3430 [place] [address]Dr. Slick Broderick IG # 0.02 10e3/ul Normal 0.00-0.03 [facility] Comment on above: Performed By: #### C BC ####[facility] Nfqnltjvgm1788 [place] [address]Dr. Slick Broderick IG % 0.3 % Normal 0.0-0.5 [facility] Comment on above: Performed By: #### C BC ####[facility] Ttcbukavwp9568 [place] [address]Dr. Slick Broderick LYMPH # 0.8 103/ul Critically low 1.2-3.8 The [facility] Comment on above: Performed By: #### C BC ####[facility] Edknyockdv8257 [place] [address]Dr. Slick Broderick Lymphocytes/100 WBC (Bld) 13.2 % Critically low 20.5-60.0 The [facility] Comment on above: Performed By: #### C BC ####[facility] Ayadmfuoyn3549 [place] [address]Dr. Slick Brdoerick MANUAL DIFF REQ NO Normal [facility] Comment on above: Performed By: #### C BC ####[facility] Luktinwiuk9913 [place] [phone]. Slick Davie MCH (RBC) [Entitic mass] 29.5 pg Normal 26.7-34.0 [facility] Comment on above: Performed By: #### C BC ####[facility] Rccopzqiqa7822 [place] [phone]. Slick Broderick MCHC (RBC) [Mass/Vol] 31.8 g/dL Normal 29.9-35.2 [facility] Comment on above: Performed By: #### C BC ####[facility] Uundnbstra3673 [place] [phone]. Meaganwendie Broderick MCV (RBC) [Entitic vol] 92.7 fL Normal 81.0-99.0 [facility] Comment on above: Performed By: #### C BC ####[facility] Eupbhdnrml4[address] [place], [place] [address]Dr. Slick Broderick MONO # 0.6 103/ul Normal 0.3-0.8 [facility] Comment on above: Performed By: #### C BC ####[facility] Lytdgxjvut[address] [place], [place] [address]Dr. Slick Broderick Monocytes/100 WBC (Bld) 9.2 % Normal 1.7-12.0 [facility] Comment on above: Performed By: #### C BC ####[facility] Hkducohwdp[address] [place], [place] [address]Dr. Slick Broderick NEUT # 4.1 103/ul Normal 1.4-6.5 [facility] Comment on above: Performed By: #### C BC ####[facility] Ewecmeappn[address] [place], [place] [address]Dr. Slick Broderick Neutrophils/100 WBC (Bld) 66.8 % Normal 43.0-75.0 [facility] Comment on above: Performed By: #### C BC ####[facility] Mxrfruqcwd[address] [place], [place] [address]Dr. Slick Broderick Platelet mean volume (Bld) [Entitic vol] 9.5 fL Normal 9.5-13.5 [facility] Comment on above: Performed By: #### C BC ####[facility] Gqlabiyunt5091 [place], [place] [address]Dz. Slick Broderick PLT 189 103/ul Normal 150-450 The [facility] Comment on above: Performed By: #### C BC ####[facility] Echxawuhii8478 [place], [place] [address]Fp. Slick Broderick RBC 2.75 106/ul Critically low 4.20-5.[address] [facility] Comment on above: Performed By: #### C BC ####[facility] Vtjmwplrcj4733 [place] [phone]. Slick Broderick WBC 6.2 103/ul Normal 4.0-11.0 [facility] Comment on above: Performed By: #### C BC ####[facility] Xjlrxovgra2112 [place] [phone]. Slick Broderick BASO # 0.1 103/ul Normal 0.0-0.1 [facility] Comment on above: Performed By: #### C BC ####[facility] Nfvtmamkyz7307 [place] [phone]. Slick Broderick Basophils/100 WBC (Bld) 0.8 % Normal 0.2-2.0 [facility] Comment on above: Performed By: #### C BC ####[facility] Crkgjgewlm7780 [place] [phone]. Slick Broderick EO # 0.8 103/ul Critically high 0.0-0.7 [facility] Comment on above: Performed By: #### C BC ####[facility] Qbswiauaus5968 [place] [phone]. Slick Broderick Eosinophils/100 WBC (Bld) 11.7 % Critically high 0.9-7.0 [facility] Comment on above: Performed By: #### C BC ####[facility] Qsstxwkvqj5649 [place] [phone]. Slick Broderick Erythrocyte distribution width (RBC) [Ratio] 14.1 % Normal 11.0-15.0 [facility] [facility] Comment on above: Performed By: #### C BC ####[facility] [address]ufmtkqndc[address] [place] [address]Dr. Meaganwendie Broderick Hematocrit (Bld) [Volume fraction] 27.3 % Critically low 36.0-48.0 [facility] Comment on above: Performed By: #### C BC ####[facility] Toectakzgm45[address] [place] [address]Dr. Slick Broderick Hemoglobin (Bld) [Mass/Vol] 8.4 g/dL Critically low 12.0-16.0 The [facility] Comment on above: Performed By: #### C BC ####[facility] Tjvmoockuz[address] [place], [place] [address]Dr. Slick Broderick IG # 0.02 10e3/ul Normal 0.00-0.03 [facility] Comment on above: Performed By: #### C BC ####[facility] Xfakiqhkko[address] [place], [place] [address]Dr. Slick Brodeirck IG % 0.3 % Normal 0.0-0.5 The [facility] Comment on above: Performed By: #### C BC ####[facility] Vzsiksanfc[address] [place], [place] [address]Dr. Slick Broderick LYMPH # 1.0 103/ul Critically low 1.2-3.8 The [facility] Comment on above: Performed By: #### C BC ####[facility] Rdcbpdhshg7[address] [place], [place] [address]Dr. Slick Broderick Lymphocytes/100 WBC (Bld) 14.5 % Critically low 20.5-60.0 The [facility] Comment on above: Performed By: #### C BC ####[facility] Nddufjptuu[address] [place], [place] [address]Dr. Slick Broderick MANUAL DIFF REQ NO Normal The [facility] Comment on above: Performed By: #### C BC ####[facility] Luivbrojtb[address] [place], [place] [address]Dr. Slick Broderick MCH (RBC) [Entitic mass] 29.2 pg Normal 26.7-34.0 The [facility] Comment on above: Performed By: #### C BC ####[facility] Cqhkcupfkf99[address] [place] [id number]. Slick Davie MCHC (RBC) [Mass/Vol] 30.8 g/dL Normal 29.9-35.2 [facility] Comment on above: Performed By: #### C BC ####[facility] Ofnvbxplzb55[address] [place] [address]Dr. Slick Broderick MCV (RBC) [Entitic vol] 94.8 fL Normal 81.0-99.0 [facility] Comment on above: Performed By: #### C BC ####[facility] Ipnlktodxi[address] [place], [place] [address]Dr. Slick Broderick MONO # 0.6 103/ul Normal 0.3-0.8 [facility] Comment on above: Performed By: #### C BC ####[facility] Gumnlshimg6[address] [place], [place] [address]Dr. Slick Broderick Monocytes/100 WBC (Bld) 9.7 % Normal 1.7-12.0 [facility] Comment on above: Performed By: #### C BC ####[facility] Talcrludjo[address] [place], [place] [address]Dr. Slick Broderick NEUT # 4.2 103/ul Normal 1.4-6.5 [facility] Comment on above: Performed By: #### C BC ####[facility] Vwxswjchly[address] [place], [place] [address]Dr. Slick Broderick Neutrophils/100 WBC (Bld) 63.0 % Normal 43.0-75.0 [facility] Comment on above: Performed By: #### C BC ####[facility] Faqustdlmu[address] [place], [place] [address]Dr. Slick Broderick Platelet mean volume (Bld) [Entitic vol] 10.0 fL Normal 9.5-13.5 [facility] Comment on above: Performed By: #### C BC ####[facility] Fofqjvvcsg93[address] [place], [place] [address]Dr. Slick Broderick PLT 210 103/ul Normal 150-450 The [facility] Comment on above: Performed By: #### C BC ####[facility] Lqwcsqworu0391 [place] [id number]. Slick Broderick RBC 2.88 106/ul Critically low 4.20-5.[address] [facility] Comment on above: Performed By: #### C BC ####[facility] Rhievnesfs0258 [place] [id number]. Slick Broderick WBC 6.6 103/ul Normal 4.0-11.0 [facility] Comment on above: Performed By: #### C BC ####[facility] Suopeymqdt2840 [place] [id number]. Slick Broderick CRPon 04-21-2022 CRP 0.4 mg/dL Normal <=1.0 [facility] Comment on above: Performed By: #### H STROPN, CRP, CMP ####[facility] Gcnaocmpsl[address] [place] [id number]. Slick Broderick CT HEAD WO CONon 04-21-2022 CT HEAD WO CON Normal The [facility] CULTURE BLOODon 04-21-2022 Microscopic examination of blood, culture Culture Observations: NO GROWTH AT 5 DAYS. Normal The [facility] Comment on above: Performed By: #### B LDCX2 ####[facility] Mpcsotxzjz[address] [place], [place] [id number]. Slick Broderick Microscopic examination of blood, culture Culture Observations: NO GROWTH AT 5 DAYS. Normal The [facility] Comment on above: Performed By: #### B LDCX1 ####[facility] Jxegfjpktr88[address] [place] [phone]. Slick Broderick CULTURE URINEon 04-21-2022 CULTURE URINE Culture Observations: MODERATE GROWTH OF MIXED GENITAL OMAR. NO POTENTIAL PATHOGENS SEEN. Normal [facility] Comment on above: Performed By: #### U RCX ####[facility] Sqpzqzkqrk13[address] [place], [place] [address]Dr. Slick Broderick Covid-19 PCR (CVDTB)on 04-12 SARS-CoV-2 (COVID-19) RNA DONNIE+probe Ql (Unsp spec) Not detected Normal NOT DETECTED The [facility] Comment on above: Result Comment: When diagnostic [...] for this test is supported by the [place] of [employer] and Human Service's declaration that [...] longer be used). Performed By: #### [facility] ####[facility] Ovyzqkdxfh[address] [place], [place] [address]Dr. Slick Broderick ER URINE PROFILEon 2 Bilirubin Ql (U) Negative Normal NEGATIVE [facility] Comment on above: Performed By: #### Dennise PLEITEZ ICRO ####[facility] Thgxrwqoig7[address] [place], [place] [address]Dr. Slick Broderick Clarity (U) CLEAR Normal CLEAR [facility] Comment on above: Performed By: #### Dennise PLEITEZ UMICRO ####[facility] Nqedtfqsng[address] [place], [place] [address]Dr. Slick Broderick Color (U) LT. YELLOW Normal YELLOW The [facility] Comment on above: Performed By: #### Dennise PLEITEZ UMICRO ####[facility] Ryngonzkhe[address] [place], [place] [address]Dr. Slick Broderick ERUAHD A micrscopic examination will be performed if indicated. Normal The [facility] Comment on above: Performed By: #### Dennise PLEITEZ UMICRO ####[facility] Kxslxbomah[address] [place], [place] [address]Dr. Slick Broderick Glucose Ql (U) Negative Normal NEGATIVE The [facility] Comment on above: Performed By: #### AMBERLY PEDRORO ####[facility] Nbwlbepykt38[address] [place] [address]Dr. Slick Broderick Hemoglobin Ql (U) Negative Normal NEGATIVE The [facility] Comment on above: Performed By: #### AMBERLY PEDRORO ####[facility] Airnhsyecw2820 [place] [address]Dr. Slick Broderick Ketones Ql (U) Negative Normal NEGATIVE The [facility] Comment on above: Performed By: #### AMBERLY PEDRORO ####[facility] Oxxjywmici[address] [place], [place] [address]Dr. Slick Broderick LEUKOCYTES TRACE Abnormal NEGATIVE The [facility] Comment on above: Performed By: #### AMBERLY PEDRORO ####[facility] Unqfzazhqf249[address] [place], [place] [address]Dr. Slick Broderick Nitrite Ql (U) Negative Normal NEGATIVE The [facility] Comment on above: Performed By: #### JANIS PEDRO ####[facility] Hoyfddpedo4[address] [place], [place] [address]Dr. Slick Broderick pH (U) 5.5 [pH] Normal 5-9 The [facility] Comment on above: Performed By: #### AMBERLY PEDRORO ####[facility] Zttyehymmm[address] [place], [place] [address]Dr. Slick Broderick SPEC GRAVITY 1.010 Normal 1.005-<=1.0 25 The [facility] Comment on above: Performed By: #### AMBERLY PEDRORO ####[facility] Wybcmzxuwy[address] [place], [place] [address]Dr. Slick Broderick UA PROTEIN Negative Normal NEGATIVE/ TRACE The [facility] Comment on above: Performed By: #### AMBERLY PEDRORO ####[facility] Ljnhanbmqz[address] [place], [place] [address]Dr. Slick Broderick UR MICRO IND INDICATED Normal The [facility] Comment on above: Performed By: #### AMBERLY PEDRORO ####[facility] Jxrqzjirgn[address] [place], [place] [address]Dr. Slick Broderick Urobilinogen Qn (U) 0.2 {Hiren'U}/dL Normal 0.2 - 1. 0 [facility] Comment on above: Performed By: #### E JANIS PLEITEZ ####[facility] Kbyaorcxem65[address] [place] [address]Dr. Slick Davie LACTATE/LACTIC ACIDon 2021 Lactate [Moles/Vol] 1.0 mmol/L Normal 0.4-1.9 [facility] Comment on above: Performed By: #### L ACT ####[facility] Azkdzepxai09[address] [place] [address]Dr. Slick Broderick POINT OF CARE GLUCOSEon 04-12 Glucose [Mass/Vol] 109 mg/dL Critically high 74-106 [facility] Comment on above: Performed By: #### P OCGLUC ####[facility] Lsjofngszt7[address] [place] [address]Dr. Slick Broderick Glucose [Mass/Vol] 93 mg/dL Normal 74-106 [facility] Comment on above: Performed By: #### P OCGLUC ####[facility] Dnfmontamz1724 [place] [address]Dr. Slick Broderick Glucose [Mass/Vol] 140 mg/dL Critically high 74-106 [facility] Comment on above: Performed By: #### P OCGLUC ####[facility] Kfglqwnbuv8478 [place] [address]Dr. Meaganwendie Broderick Glucose [Mass/Vol] 95 mg/dL Normal 74-106 [facility] Comment on above: Performed By: #### P OCGLUC ####[facility] Ilhcyndssx1888 [place] [address]Dr. Slick Broderick PROF 14(COMP METB)on 022 Albumin [Mass/Vol] 2.9 g/dL Critically low 3.4-5.0 Th [facility] Comment on above: Performed By: #### C MP ####[facility] Nrlgjmqzdd9590 [place] [address]Dr. Slick Broderick Albumin/Globulin [Mass ratio] 0.9 {ratio} Normal [facility] Comment on above: Performed By: #### C MP ####[facility] Xdzsniyjhc5926 [place] [address]Dr. Slick Broderick ALP [Catalytic activity/Vol] 87 U/L Normal 46-116 [facility] Comment on above: Performed By: #### C MP ####[facility] Txkgjgiiuk6747 [place] [address]Dr. Slick Broderick ALT [Catalytic activity/Vol] 21 U/L Normal 14-59 [facility] Comment on above: Performed By: #### C MP ####[facility] Nbwecqvfpu4924 [place] [address]Dr. Slick Broderick Anion gap [Moles/Vol] 7.7 mmol/L Normal [facility] Comment on above: Performed By: #### C MP ####[facility] Hjmhkbtjnm[address] [place], [place] [address]Dr. Slick Davie AST [Catalytic activity/Vol] 11 U/L Critically low 15-37 [facility] Comment on above: Performed By: #### C MP ####[facility] Vdsjibxvak[address] [place], [place] [address]Dr. Slick Broderick Bilirubin [Mass/Vol] 0.2 mg/dL Normal 0.2-1.0 [facility] Comment on above: Performed By: #### C MP ####[facility] Xwhiugzumh[address] [place], [place] [address]Dr. Slick Davie Calcium [Mass/Vol] 9.4 mg/dL Normal 8.5-10.1 [facility] Comment on above: Performed By: #### C MP ####[facility] Jrlxshanip35[address] [place], [place] [address]Dr. Slick Davie Chloride [Moles/Vol] 107 mmol/L Normal 98-107 [facility] Comment on above: Performed By: #### C MP ####[facility] Glradighok[address] [place], [place] [address]Dr. Slick Broderick CO2 [Moles/Vol] 31.2 mmol/L Normal 21.0-32.0 [facility] Comment on above: Performed By: #### C MP ####[facility] Kbowslxsrr4588 [place] [address]Dr. Slick Broderick Creatinine [Mass/Vol] 2.06 mg/dL Critically high 0.55-1.02 [facility] Comment on above: Performed By: #### C MP ####[facility] Ohdslzcdyc0094 [place] [address]Dr. Slick Broderick EGFR-AF BURMESE 29 mL/min/1.73m2 Critically low >=60 [facility] Comment on above: Performed By: #### C MP ####[facility] Vfxmipkxbc8544 [place] [address]Dr. Slick Davie EGFR-NON AF BURMESE 24 mL/min/1.73m2 Critically low >=60 [facility] Comment on above: Performed By: #### C MP ####[facility] Ollvvbvzac[address] [place], [place] [address]Dr. Slick Davie Globulin (S) [Mass/Vol] 3.4 g/dL Normal T [facility] Comment on above: Performed By: #### C MP ####[facility] Jpbawdbjgl3381 [place] [address]Dr. Slick Davie Glucose [Mass/Vol] 93 mg/dL Normal 74-106 [facility] Comment on above: Performed By: #### C MP ####[facility] Xkasepgldk7658 [place] [address]Dr. Meaganwendie Broderick Potassium [Moles/Vol] 4.9 mmol/L Normal 3.5-5.1 [facility] Comment on above: Performed By: #### C MP ####[facility] Whsrjsovbm5191 [place] [address]Dr. Meaganwendie Broderick Protein [Mass/Vol] 6.3 g/dL Critically low 6.4-8.2 [facility] Comment on above: Performed By: #### C MP ####[facility] Arsrwkbdhc9295 [place] [address]Dr. Slick Broderick Sodium [Moles/Vol] 141 mmol/L Normal 136-145 [facility] Comment on above: Performed By: #### C MP ####[facility] Xfrbifzaqa0125 [place] [address]Dr. Slick Davie Urea nitrogen [Mass/Vol] 63.0 mg/dL Critically high 7.0-18.0 [facility] Comment on above: Performed By: #### C MP ####[facility] Msztjeygrw9611 [place] [address]Dr. Meaganwendie Davie Urea nitrogen/Creatinine [Mass ratio] 30.6 mg/mg Normal [facility] Comment on above: Performed By: #### C MP ####[facility] Meohgvvngf8200 [place] [address]Dr. Slick Broderick Albumin [Mass/Vol] 3.1 g/dL Critically low 3.4-5.0 Th [facility] Comment on above: Performed By: #### H STROPN, CRP, CMP ####[facility] Zenbcabvof[address] [place], [place] [address]Dr. Slick Broderick Albumin/Globulin [Mass ratio] 0.9 {ratio} Normal [facility] Comment on above: Performed By: #### H STROPN, CRP, CMP ####[facility] Vsodgdlovd4758 [place] [address]Dr. Slick Davie ALP [Catalytic activity/Vol] 98 U/L Normal 46-116 The [facility] Comment on above: Performed By: #### H STROPN, CRP, CMP ####[facility] Eqebhplmvc5657 [place] [address]Dr. Slick Broderick ALT [Catalytic activity/Vol] 17 U/L Normal 14-59 [facility] Comment on above: Performed By: #### H STROPN, CRP, CMP ####[facility] Jeejsdaqrb6093 [place] [address]Dr. Slick Broderick Anion gap [Moles/Vol] 4.3 mmol/L Normal [facility] Comment on above: Performed By: #### H STROPN, CRP, CMP ####[facility] Sfnlmtjech7929 [place] [address]Dr. Slick Broderick AST [Catalytic activity/Vol] 11 U/L Critically low 15-37 The [facility] Comment on above: Performed By: #### H STROPN, CRP, CMP ####[facility] Stgzbhvmen1746 [place] [address]Dr. Slick Broderick Bilirubin [Mass/Vol] 0.2 mg/dL Normal 0.2-1.0 [facility] Comment on above: Performed By: #### H STROPN, CRP, CMP ####[facility] Slyfjwckbh6876 [place] [address]Dr. Slick Broderick Calcium [Mass/Vol] 9.6 mg/dL Normal 8.5-10.1 [facility] Comment on above: Performed By: #### H STROPN, CRP, CMP ####[facility] Ztsbvejlwn2795 [place] [address]Dr. Slick Broderick Chloride [Moles/Vol] 104 mmol/L Normal 98-107 The [facility] Comment on above: Performed By: #### H STROPN, CRP, CMP ####[facility] Ahyccajdba3811 [place] [address]Dr. Slick Broderick CO2 [Moles/Vol] 32.3 mmol/L Critically high 21.0-32.0 The [facility] Comment on above: Performed By: #### H STROPN, CRP, CMP ####[facility] Jmfemmbohj3166 [place] [address]Dr. Slick Broderick Creatinine [Mass/Vol] 2.49 mg/dL Critically high 0.55-1.02 [facility] Comment on above: Performed By: #### H STROPN, CRP, CMP ####[facility] Rcmbrmqfqy1153 [place] [address]Dr. Meaganlan Broderick EGFR-AF BURMESE 23 mL/min/1.73m2 Critically low >=60 The [facility] Comment on above: Performed By: #### H STROPN, CRP, CMP ####[facility] Xziaqdbfqe5307 [place] [address]Dr. Slick Broderick EGFR-NON AF BURMESE 19 mL/min/1.73m2 Critically low >=60 The [facility] Comment on above: Performed By: #### H STROPN, CRP, CMP ####[facility] Lvqlhhbjeu6537 [place] [address]Dr. Slick Broderick Globulin (S) [Mass/Vol] 3.5 g/dL Normal [facility] Comment on above: Performed By: #### H STROPN, CRP, CMP ####[facility] Ijypuqemnt0762 [place] [address]Dr. Slick Broderick Glucose [Mass/Vol] 112 mg/dL Critically high 74-106 [facility] Comment on above: Performed By: #### H STROPN, CRP, CMP ####[facility] Wtepjgqlyh7440 [place] [address]Dr. Slick Broderick Potassium [Moles/Vol] 4.6 mmol/L Normal 3.5-5.1 [facility] Comment on above: Performed By: #### H STROPN, CRP, CMP ####[facility] Emjcdvneav5339 [place] [address]Dr. Slick Broderick Protein [Mass/Vol] 6.6 g/dL Normal 6.4-8.2 [facility] Comment on above: Performed By: #### H STROPN, CRP, CMP ####[facility] Ajcdqnwmmp[address] [place], [place] [address]Dr. Slick Broderick Sodium [Moles/Vol] 136 mmol/L Normal 136-145 [facility] Comment on above: Performed By: #### H STROPN, CRP, CMP ####[facility] Mquvmsjtxz5249 [place] [address]Dr. Slick Broderick Urea nitrogen [Mass/Vol] 74.0 mg/dL Critically high 7.0-18.0 [facility] Comment on above: Performed By: #### H STROPN, CRP, CMP ####[facility] Vrymebjzhm[address] [place], [place] [address]Dr. Slick Broderick Urea nitrogen/Creatinine [Mass ratio] 29.7 mg/mg Normal [facility] Comment on above: Performed By: #### H STROPN, CRP, CMP ####[facility] Rohyrrujus6859 [place] [address]Dr. Yilan Broderick SED RATE WESTERGRENon 2021 SED RATE 32 mm/hr Critically high <=30 The [facility] Comment on above: Performed By: #### S EDR ####[facility] Uunfxvtrid3538 [place] [address]Dr. Slick Broderick TROPONIN, HIGH SENSITIVITYon 04-21-2022 HSTROP 8.6 pg/mL Normal 4.0-51.3 The [facility] Comment on above: Result Comment: CUT- OFF POINTS HAVE BEEN ESTABLISHED BASED ON THE FOURTH UNIVERSAL DEFINITIONS OF MYOCARDIALINFARCTION. THE UPPER REFERENCE LIMIT (URL) OF TROPONIN, DEFINED THE 99TH PERCENTILE OFcTnI DISTRIBUTION IN A REFERENCE POPULATION, HAS BEEN CONFIRMED THE DECISION THRESHOLDFOR RI DIAGNOSIS. Performed By: #### H STROPN, CRP, CMP ####[facility] [address]zssyfsug[address] [place], [place] [address]Dr. Slick Broderick URINE MICROSCOPIC ONLYon BACTERIA TRACE Abnormal NONE SEEN The [facility] Comment on above: Performed By: #### Dennise PLEITEZ UMICRO ####[facility] Uajoautbjo7767 [place] [address]Dr. Slick Broderick Bacteria identified Cx Nom (U) INDICATED Normal The [facility] Comment on above: Performed By: #### Dennise PLEITEZ UMICRO ####[facility] Kofhkiymtw1003 [place] [address]Dr. Slick Broderick CAST NONE SEEN Normal NONE SEEN The [facility] Comment on above: Performed By: #### Dennise PLEITEZ UMICRO ####[facility] Luyjrdfuxl5440 [place] [address]Dr. Slick Broderick Crystals LM Nom (Urine sed) NONE SEEN Normal NONE SEEN The [facility] Comment on above: Performed By: #### Dennise PLEITEZ UMICRO ####[facility] Syseffplmr3579 [place] [address]Dr. Slick Broderick Epithelial cells LM Ql (Urine sed) FEW Abnormal NONE SEEN /RARE The [facility] Comment on above: Performed By: #### Dennise PLEITEZ UMICRO ####[facility] Nlzctornwe6992 [place] [address]Dr. Slick Broderick MUCOUS NONE SEEN Normal NONE SEEN The [facility] Comment on above: Performed By: #### JANIS PEDRO ####[facility] Rftevotopu6918 [place] [address]Dr. Slick Broderick RBC 0-2 Normal 0-2 The [facility] Comment on above: Performed By: #### JANIS PEDRO ####[facility] Kfdfpdxbpc7097 [place] [address]Dr. Slick Broderick WBC 5-10 Abnormal NONE SEEN The [facility] Comment on above: Performed By: #### JANIS PEDRO ####[facility] Exgurewcqw4278 [place] [address]Dr. Slick Broderick XR CHEST 1 Von 04-21-2022 XR CHEST 1 V Normal The [facility] CBC AUTO DIFFon 03-29-2022 BASO # 0.1 103/ul Normal 0.0-0.1 [facility] Comment on above: Performed By: #### C BC ####[facility] Qgmswwjiau9576 [place] [address]Dr. Slick Broderick Basophils/100 WBC (Bld) 0.7 % Normal 0.2-2.0 [facility] Comment on above: Performed By: #### C BC ####[facility] Cvidljtubv7768 [place] [address]Dr. Slick Broderick EO # 0.4 103/ul Normal 0.0-0.7 The [facility] Comment on above: Performed By: #### C BC ####[facility] Jpwhggydgd6854 [place] [address]Dr. Slick Broderick Eosinophils/100 WBC (Bld) 4.8 % Normal 0.9-7.0 The [facility] Comment on above: Performed By: #### C BC ####[facility] Veaazrajwg2574 [place] [address]Dr. Slick Broderick Erythrocyte distribution width (RBC) [Ratio] 13.9 % Normal 11.0-15.0 [facility] Comment on above: Performed By: #### C BC ####[facility] Ppyycgbmnf2031 [place] [address]Dr. Slick Broderick Hematocrit (Bld) [Volume fraction] 28.0 % Critically low 36.0-48.0 The [facility] Comment on above: Performed By: #### C BC ####[facility] Xkdbognizk8168 [place] [address]Dr. Slick Broderick Hemoglobin (Bld) [Mass/Vol] 8.8 g/dL Critically low 12.0-16.0 The [facility] Comment on above: Performed By: #### C BC ####[facility] Prenyojixy3363 [place] [address]Dr. Slick Broderick IG # 0.05 10e3/ul Critically high 0.00-0.03 [facility] Comment on above: Performed By: #### C BC ####[facility] Quzsjbznds5454 [place] [address]Dr. Slick Broderick IG % 0.7 % Critically high 0.0-0.5 The [facility] Comment on above: Performed By: #### C BC ####[facility] Bgypknadib7603 [place] [address]Dr. Slick Broderick LYMPH # 1.0 103/ul Critically low 1.2-3.8 The [facility] Comment on above: Performed By: #### C BC ####[facility] Xqsfvogsrh1345 [place] [address]Dr. Slick Broderick Lymphocytes/100 WBC (Bld) 13.0 % Critically low 20.5-60.0 The [facility] Comment on above: Performed By: #### C BC ####[facility] Tvoemtkkxb5796 [place] [address]Dr. Slick Broderick MANUAL DIFF REQ NO Normal The [facility] Comment on above: Performed By: #### C BC ####[facility] Rhjozgdkkm[address] [place], [place] [address]Dr. Slick Broderick MCH (RBC) [Entitic mass] 28.9 pg Normal 26.7-34.0 The [facility] Comment on above: Performed By: #### C BC ####[facility] Fpurvvfplc3969 [place] [id number]. Slick Broderick MCHC (RBC) [Mass/Vol] 31.4 g/dL Normal 29.9-35.2 [facility] Comment on above: Performed By: #### C BC ####[facility] Wawjegloyw3066 [place] [id number]. Slick Broderick MCV (RBC) [Entitic vol] 92.1 fL Normal 81.0-99.0 [facility] Comment on above: Performed By: #### C BC ####[facility] [address]irzhswm[address] [place], [place] [id number]. Slick Broderick MONO # 0.8 103/ul Normal 0.3-0.8 [facility] Comment on above: Performed By: #### C BC ####[facility] Uinwilauhr[address] [place], [place] [address]Dr. Slick Broderick Monocytes/100 WBC (Bld) 10.7 % Normal 1.7-12.0 [facility] Comment on above: Performed By: #### C BC ####[facility] Ncbnseialz[address] [place], [place] [address]Dr. Meaganwendie Broderick NEUT # 5.4 103/ul Normal 1.4-6.5 [facility] Comment on above: Performed By: #### C BC ####[facility] Hvimfeeola[address] [place], [place] [address]Dr. Slick Broderick Neutrophils/100 WBC (Bld) 70.1 % Normal 43.0-75.0 [facility] Comment on above: Performed By: #### C BC ####[facility] Cyizjslkut[address] [place], [place] [address]Dr. Slick Broderick Platelet mean volume (Bld) [Entitic vol] 8.9 fL Critically low 9.5-13.5 [facility] Comment on above: Performed By: #### C BC ####[facility] Lijyxdtxbe[address] [place], [place] [address]Dr. Slick Broderick PLT 221 103/ul Normal 150-450 The [facility] Comment on above: Performed By: #### C BC ####[facility] Fihrefmbzo7398 [place] [id number]. Slick Broderick RBC 3.04 106/ul Critically low 4.20-5.40 The [facility] Comment on above: Performed By: #### C BC ####[facility] Cfpswvlwwr2570 [place] [id number]. Slick Broderick WBC 7.7 103/ul Normal 4.0-11.0 The [facility] Comment on above: Performed By: #### C BC ####[facility] Aojimwkyao1433 [place] [address]Dr. Slick Broderick PRBC LEUKOREDUCEDon 03-29-20 PRBC LEUKOREDUCED Cross Match Result Compatible Unit Blood Type O Pos Unit Number [id number] Status Information Transfused Product ID Red Blood Cells Product Code [id number] Normal [facility] Comment on above: Performed By: #### P RBC ####[facility] Sbhihbruuo[address] [place], [place] [address]Dr. Slick Broderick PROF CHEM 8 (BAS METB)on Anion gap [Moles/Vol] 9.6 mmol/L Normal [facility] Comment on above: Performed By: #### B MP ####[facility] Tzfroxzhoc[address] [place], [place] [address]Dr. Slick Broderick Calcium [Mass/Vol] 9.4 mg/dL Normal 8.5-10.1 [facility] Comment on above: Performed By: #### B MP ####[facility] Phpqrzknuh1634 [place] [address]Dr. Slick Broderick Chloride [Moles/Vol] 101 mmol/L Normal 98-107 The [facility] Comment on above: Performed By: #### B MP ####[facility] Ewhuwewbmc6[address] [place], [place] [address]Dr. Slick Broderick CO2 [Moles/Vol] 28.3 mmol/L Normal 21.0-32.0 The [facility] Comment on above: Performed By: #### B MP ####[facility] Drrszgbecq4425[address] [place], [place] [address]Dr. Slick Broderick Creatinine [Mass/Vol] 1.56 mg/dL Critically high 0.55-1.02 [facility] Comment on above: Performed By: #### B MP ####[facility] Humkicszgk1152 [place] [address]Dr. Slick Broderick EGFR-AF BURMESE 39 mL/min/1.73m2 Critically low >=60 [facility] Comment on above: Performed By: #### B MP ####[facility] Nhgngzhqwt1804[address] [place], [place] [address]Dr. Slick Broderick EGFR-NON AF BURMESE 33 mL/min/1.73m2 Critically low >=60 [facility] Comment on above: Performed By: #### B MP ####[facility] Dqbdhitixh[address] [place], [place] [address]Dr. Slick Broderick Glucose [Mass/Vol] 88 mg/dL Normal 74-106 [facility] Comment on above: Performed By: #### B MP ####[facility] Lyquykauee[address] [place], [place] [address]Dr. Slick Broderick Potassium [Moles/Vol] 4.9 mmol/L Normal 3.5-5.1 [facility] Comment on above: Performed By: #### B MP ####[facility] Evpxmrfqyr9[address] [place], [place] [address]Dr. Slick Broderick Sodium [Moles/Vol] 134 mmol/L Critically low 136-145 [facility] Comment on above: Performed By: #### B MP ####[facility] Lprojblcrn7536[address] [place], [place] [address]Dr. Slick Broderick Urea nitrogen [Mass/Vol] 50.0 mg/dL Critically high 7.0-18.0 [facility] Comment on above: Performed By: #### B MP ####[facility] Bljkxjidtj6606[address] [place], [place] [address]Dr. Slick Broderick Urea nitrogen/Creatinine [Mass ratio] 32.1 mg/mg Normal [facility] Comment on above: Performed By: #### B MP ####[facility] Ggtsdtgpma1747[address] [place], [place] [address]Dr. Slick Broderick CBC AUTO DIFFon 03-28-2022 BASO # 0.1 103/ul Normal 0.0-0.1 [facility] Comment on above: Performed By: #### C BC ####[facility] Tjorvuwnrc3094 [place] [address]Dr. Slick Broderick Basophils/100 WBC (Bld) 0.7 % Normal 0.2-2.0 [facility] Comment on above: Performed By: #### C BC ####[facility] Xiwflipwur8024 [place] [address]Dr. Slick Broderick EO # 0.4 103/ul Normal 0.0-0.7 [facility] Comment on above: Performed By: #### C BC ####[facility] Cqhitotpfc40[address] [place], [place] [address]Dr. Slick Broderick Eosinophils/100 WBC (Bld) 5.5 % Normal 0.9-7.0 The [facility] Comment on above: Performed By: #### C BC ####[facility] Hnqbmfbdwl03[address] [place], [place] [address]Dr. Slick Broderick Erythrocyte distribution width (RBC) [Ratio] 13.6 % Normal 11.0-15.0 [facility] Comment on above: Performed By: #### C BC ####[facility] Ibtsrpcjbt68[address] [place], [place] [address]Dr. Slick Broderick Hematocrit (Bld) [Volume fraction] 27.9 % Critically low 36.0-48.0 The [facility] Comment on above: Performed By: #### C BC ####[facility] Eoatewewda10[address] [place], [place] [address]Dr. Slick Broderick Hemoglobin (Bld) [Mass/Vol] 9.0 g/dL Critically low 12.0-16.0 The [facility] Comment on above: Performed By: #### C BC ####[facility] Tgoemopyts[address] [place], [place] [address]Dr. Slick Davie IG # 0.02 10e3/ul Normal 0.00-0.03 The [facility] Comment on above: Performed By: #### C BC ####[facility] Zvqhupvkbe6421 [place], [place] [address]Iu. Slick Broderick IG % 0.3 % Normal 0.0-0.5 [facility] Comment on above: Performed By: #### C BC ####[facility] Lxfetymovw3733 [place], [place] [address]Tp. Slick Broderick LYMPH # 0.9 103/ul Critically low 1.2-3.8 [facility] Comment on above: Performed By: #### C BC ####[facility] Jgwfvwzxww6671 [place] [id number]. Slick Broderick Lymphocytes/100 WBC (Bld) 13.0 % Critically low 20.5-60.0 [facility] Comment on above: Performed By: #### C BC ####[facility] Tcthnitfhu2292 [place] [id number]. Slick Broderick MANUAL DIFF REQ NO Normal [facility] Comment on above: Performed By: #### C BC ####[facility] Fbpsszzjbv0550 [place] [phone]. Slick Broderick MCH (RBC) [Entitic mass] 29.6 pg Normal 26.7-34.0 [facility] Comment on above: Performed By: #### C BC ####[facility] Cwofeeybgt1769 [place] [phone]. Slick Broderick MCHC (RBC) [Mass/Vol] 32.3 g/dL Normal 29.9-35.2 [facility] Comment on above: Performed By: #### C BC ####[facility] Nzdvdqfuqn8902 [place] [phone]. Slick Broderick MCV (RBC) [Entitic vol] 91.8 fL Normal 81.0-99.0 [facility] Comment on above: Performed By: #### C BC ####[facility] Cevykxiksh3478 [place] [phone]. Slick Broderick MONO # 0.7 103/ul Normal 0.3-0.8 [facility] Comment on above: Performed By: #### C BC ####[facility] Rydnaedipg8143 [place] [phone]. Slick Broderick Monocytes/100 WBC (Bld) 11.1 % Normal 1.7-12.0 [facility] Comment on above: Performed By: #### C BC ####[facility] Medxoxpecm7270 [place] [phone]. Slick Broderick NEUT # 4.6 103/ul Normal 1.4-6.5 [facility] Comment on above: Performed By: #### C BC ####[facility] Mvanbudazs6845 [place] [phone]. Slick Broderick Neutrophils/100 WBC (Bld) 69.4 % Normal 43.0-75.0 The [facility] Comment on above: Performed By: #### C BC ####[facility] Frjrapgwxj4262 [place] [phone]. Slick Broderick Platelet mean volume (Bld) [Entitic vol] 8.9 fL Critically low 9.5-13.5 [facility] Comment on above: Performed By: #### C BC ####[facility] Erjkiojxvg5525 [place] [phone]. Slick Broderick PLT 216 103/ul Normal 150-450 The [facility] Comment on above: Performed By: #### C BC ####[facility] Cgwxzbzbzn0568 [place] [phone]. Slick Broderick RBC 3.04 106/ul Critically low 4.20-5.40 The [facility] Comment on above: Performed By: #### C BC ####[facility] Qegmfrsehh9046 [place] [phone]. Slick Broderick WBC 6.7 103/ul Normal 4.0-11.0 The [facility] Comment on above: Performed By: #### C BC ####[facility] Tgdfnbqqge8034 [place] [phone]. Slick Broderick BASO # 0.0 103/ul Normal 0.0-0.1 The [facility] Comment on above: Performed By: #### C BC ####[facility] Hioseyeqtc4270 [place] [phone]. Slick Broderick Basophils/100 WBC (Bld) 0.5 % Normal 0.2-2.0 [facility] Comment on above: Performed By: #### C BC ####[facility] Caawhaomjs8817 [place] [address]Dr. Slick Broderick EO # 0.4 103/ul Normal 0.0-0.7 The [facility] Comment on above: Performed By: #### C BC ####[facility] Vqhpmzchpy6357 [place] [address]Dr. Slick Broderick Eosinophils/100 WBC (Bld) 5.3 % Normal 0.9-7.0 The [facility] Comment on above: Performed By: #### C BC ####[facility] Ydzzbwdqnl9581 [place] [address]Dr. Slick Broderick Erythrocyte distribution width (RBC) [Ratio] 12.9 % Normal 11.0-15.0 [facility] Comment on above: Performed By: #### C BC ####[facility] Txjnmibpon[address] [place], [place] [address]Dr. Slick Broderick Hematocrit (Bld) [Volume fraction] 23.9 % Critically low 36.0-48.0 [facility] Comment on above: Performed By: #### C BC ####[facility] Pwfdkdsoxl5051 [place] [address]Dr. Slick Broderick Hemoglobin (Bld) [Mass/Vol] 7.7 g/dL Critically low 12.0-16.0 [facility] Comment on above: Performed By: #### C BC ####[facility] Gurlsghpht5616 [place] [address]Dr. Slick Davie IG # 0.04 10e3/ul Critically high 0.00-0.03 [facility] Comment on above: Performed By: #### C BC ####[facility] Ckmbknecpd9652 [place] [address]Dr. Slick Broderick IG % 0.5 % Normal 0.0-0.5 The [facility] Comment on above: Performed By: #### C BC ####[facility] Hluddikpuk6878 [place], [place] [address]Lw. Slick Broderick LYMPH # 0.9 103/ul Critically low 1.2-3.8 [facility] Comment on above: Performed By: #### C BC ####[facility] Qmnvqfjrnv9038 [place], [place] [address]Vv. Slick Broderick Lymphocytes/100 WBC (Bld) 11.7 % Critically low 20.5-60.0 [facility] Comment on above: Performed By: #### C BC ####[facility] Wfesyooxfu0802 [place] [phone]. Meaganwendie Broderick MANUAL DIFF REQ NO Normal [facility] Comment on above: Performed By: #### C BC ####[facility] Zjactcolfg3990 [place] [phone]. Slick Davie MCH (RBC) [Entitic mass] 30.1 pg Normal 26.7-34.0 [facility] Comment on above: Performed By: #### C BC ####[facility] Gnofypkamh7785 [place] [phone]. Slick Broderick MCHC (RBC) [Mass/Vol] 32.2 g/dL Normal 29.9-35.2 [facility] Comment on above: Performed By: #### C BC ####[facility] Txiejuwyor4532 [place] [phone]. Slick Davie MCV (RBC) [Entitic vol] 93.4 fL Normal 81.0-99.0 [facility] Comment on above: Performed By: #### C BC ####[facility] Xwlxnttvro3987 [place] [phone]. Slick Davie MONO # 0.9 103/ul Critically high 0.3-0.[address] [facility] Comment on above: Performed By: #### C BC ####[facility] Wtitclfhdf2039 [place] [phone]. Slick Davie Monocytes/100 WBC (Bld) 12.0 % Normal 1.7-12.0 [facility] Comment on above: Performed By: #### C BC ####[facility] Jsnykaphbm4865 [place] [phone]. Slick Broderick NEUT # 5.4 103/ul Normal 1.4-6.5 The [facility] Comment on above: Performed By: #### C BC ####[facility] Rdxnpqxvmp8482 [place], [place] [address]Uw. Slick Broderick Neutrophils/100 WBC (Bld) 70.0 % Normal 43.0-75.0 The [facility] Comment on above: Performed By: #### C BC ####[facility] Ckxxpwugzi7643 [place] [phone]. Slick Broderick Platelet mean volume (Bld) [Entitic vol] 9.0 fL Critically low 9.5-13.5 The [facility] Comment on above: Performed By: #### C BC ####[facility] Xqjqkouwfs5102 [place] [phone]. Slick Broderick PLT 210 103/ul Normal 150-450 The [facility] Comment on above: Performed By: #### C BC ####[facility] Ztkqjwrpdm9320 [place] [phone]. Slick Broderick RBC 2.56 106/ul Critically low 4.20-5.40 The [facility] Comment on above: Performed By: #### C BC ####[facility] Vnbkinkdyt0110 [place] [phone]. Slick Broderick WBC 7.7 103/ul Normal 4.0-11.0 The [facility] Comment on above: Performed By: #### C BC ####[facility] Oamydmnvnc7963 [place] [phone]. Slick Broderick CULTURE URINEon 03-28-2022 CULTURE URINE Culture Observations: NO GROWTH. Normal The [facility] Comment on above: Performed By: #### U RCX ####[facility] Iwajmqgmtp32[address] [place], [place] [address]Dr. Slick Broderick Covid-19 PCR (CVDTB)on 03-12 SARS-CoV-2 (COVID-19) RNA DONNIE+probe Ql (Unsp spec) Not detected Normal NOT DETECTED The [facility] Comment on above: Result Comment: When diagnostic [...] for this test is supported by the [place] of [employer] and Human Service's declaration that [...] be used). Performed By: #### C VDTBH ####[facility] Ovazboiuyz7[address] [place], [place] [address]Dr. Slick Broderick IRONon 03-28-2022 Iron [Mass/Vol] 32.0 ug/dL Critically low 50.0-170.0 [facility] Comment on above: Performed By: #### I YUNIOR ####[facility] Rsxkttbhst3[address] [place], [place] [address]Dr. Meaganwendie Davie POINT OF CARE GLUCOSEon 03-12 Glucose [Mass/Vol] 119 mg/dL Critically high 74-106 [facility] Comment on above: Performed By: #### P OCGLUC ####[facility] Younhniotk[address] [place], [place] [address]Dr. Slick Broderick Glucose [Mass/Vol] 178 mg/dL Critically high 74-106 [facility] Comment on above: Performed By: #### P OCGLUC ####[facility] Ftotsbafqn3984[address] [place], [place] [address]Dr. Slick Broderick Glucose [Mass/Vol] 106 mg/dL Normal 74-106 [facility] Comment on above: Performed By: #### P OCGLUC ####[facility] Zubfabubdh[address] [place], [place] [address]Dr. Slick Broderick PROF CHEM 8 (BAS METB)on Anion gap [Moles/Vol] 9.5 mmol/L Normal [facility] Comment on above: Performed By: #### B MP ####[facility] Lkffbzwrhp0672 [place] [address]Dr. Slick Davie Calcium [Mass/Vol] 9.5 mg/dL Normal 8.5-10.1 The [facility] Comment on above: Performed By: #### B MP ####[facility] Khdvjfttdk0491 [place] [address]Dr. Slick Broderick Chloride [Moles/Vol] 98 mmol/L Normal 98-107 [facility] Comment on above: Performed By: #### B MP ####[facility] Huoyhglwwa2228 [place] [address]Dr. Slick Broderick CO2 [Moles/Vol] 28.5 mmol/L Normal 21.0-32.0 The [facility] Comment on above: Performed By: #### B MP ####[facility] Spsbicsogq9375 [place] [address]Dr. Slick Broderick Creatinine [Mass/Vol] 1.90 mg/dL Critically high 0.55-1.02 [facility] Comment on above: Performed By: #### B MP ####[facility] Efsjnrznmn1658 [place] [address]Dr. Slick Broderick EGFR-AF BURMESE 31 mL/min/1.73m2 Critically low >=60 The [facility] Comment on above: Performed By: #### B MP ####[facility] Nnceeahkcq6071 [place] [address]Dr. Slick Broderick EGFR-NON AF BURMESE 26 mL/min/1.73m2 Critically low >=60 The [facility] Comment on above: Performed By: #### B MP ####[facility] Wtnhfrtzuh7982 [place] [address]Dr. Slick Broderick Glucose [Mass/Vol] 102 mg/dL Normal 74-106 The [facility] Comment on above: Performed By: #### B MP ####[facility] Tquftilzce9436 [place] [phone]. Slick Broderick Potassium [Moles/Vol] 4.0 mmol/L Normal 3.5-5.1 [facility] Comment on above: Performed By: #### B MP ####[facility] Bypqlikkei[address] [place], [place] [address]Dr. Slick Broderick Sodium [Moles/Vol] 132 mmol/L Critically low 136-145 [facility] Comment on above: Performed By: #### B MP ####[facility] Ghoqdhhhzq25[address] [place], [place] [address]Dr. Slick Broderick Urea nitrogen [Mass/Vol] 56.0 mg/dL Critically high 7.0-18.0 [facility] Comment on above: Performed By: #### B MP ####[facility] Ptqolshhnq8084[address] [place], [place] [address]Dr. Slick Broderick Urea nitrogen/Creatinine [Mass ratio] 29.5 mg/mg Normal [facility] Comment on above: Performed By: #### B MP ####[facility] Ibazonvzmj294[address] [place], [place] [address]Dr. Slick Davie T4on 03-28-2022 T4 [Mass/Vol] 4.90 ug/dL Normal 4.80-13.90 [facility] Comment on above: Performed By: #### T 4 ####[facility] Sxsnyhdsjr8[address] [place], [place] [address]Dr. Slick Broderick TSHon 03-28-2022 TSH 2.765 uIU/mL Normal 0.358-3.740 The [facility] Comment on above: Performed By: #### T SH ####[facility] Vidghsidht[address] [place], [place] [address]Dr. Slick Broderick TYPE AND SCREENon 03-28-2022 TYPE AND SCREEN Negative Normal The [facility] Comment on above: Performed By: #### T NS ####[facility] Sjwofbxkiy[address] [place], [place] [address]Dr. Slick Davie UA RANDOM W/MICROSCOPICon BACTERIA NONE SEEN Normal NONE SEEN The [facility] Comment on above: Performed By: #### U AMIC ####[facility] Uzhcwxllha5176 [place] [address]Dr. Slick Broderick Bilirubin Ql (U) Negative Normal NEGATIVE The [facility] Comment on above: Performed By: #### U AMIC ####[facility] Yxfqufwnqf4715 [place] [address]Dr. Slick Broderick CAST NONE SEEN Normal NONE SEEN The [facility] Comment on above: Performed By: #### U AMIC ####[facility] Mrhctvlsez2074[address] [place], [place] [address]Dr. Slick Broderick Clarity (U) CLEAR Normal CLEAR The [facility] Comment on above: Performed By: #### U AMIC ####[facility] Mqcdbgfrcz[address] [place], [place] [address]Dr. Slick Broderick Color (U) LT. YELLOW Normal YELLOW The [facility] Comment on above: Performed By: #### U AMIC ####[facility] Nhxydpupwa[address] [place], [place] [address]Dr. Slick Broderick Crystals LM Nom (Urine sed) NONE SEEN Normal NONE SEEN The [facility] Comment on above: Performed By: #### U AMIC ####[facility] Vwxonkzjvo7[address] [place], [place] [address]Dr. Slick Broderick Epithelial cells LM Ql (Urine sed) FEW Abnormal NONE SEEN /RARE The [facility] Comment on above: Performed By: #### U AMIC ####[facility] Qhthywedon1988[address] [place], [place] [address]Dr. Slick Broderick Glucose Ql (U) Negative Normal NEGATIVE The [facility] Comment on above: Performed By: #### U AMIC ####[facility] Urqpfpscbm8157[address] [place], [place] [address]Dr. Slick Broderick Hemoglobin Ql (U) MODERATE Abnormal NEGATIVE The [facility] Comment on above: Performed By: #### U AMIC ####[facility] Bizvkovred6198[address] [place], [place] [address]Dr. Slick Broderick Ketones Ql (U) Negative Normal NEGATIVE The [facility] Comment on above: Performed By: #### U AMIC ####[facility] Jgdkmfkfyi5931 [place] [address]Dr. Slick Broderick LEUKOCYTES TRACE Abnormal NEGATIVE The [facility] Comment on above: Performed By: #### U AMIC ####[facility] Mnmdzpobrc7998 [place] [address]Dr. Slick Broderick MUCOUS NONE SEEN Normal NONE SEEN The [facility] Comment on above: Performed By: #### U AMIC ####[facility] Yibjisfenh7384[address] [place], [place] [address]Dr. Slick Broderick Nitrite Ql (U) Negative Normal NEGATIVE The [facility] Comment on above: Performed By: #### U AMIC ####[facility] Ihtxzqrkvi4384[address] [place], [place] [address]Dr. Slick Broderick pH (U) 6.0 [pH] Normal 5-9 The [facility] Comment on above: Performed By: #### U AMIC ####[facility] Xyakrmiwcc5416[address] [place], [place] [address]Dr. Slick Broderick RBC 5-10 Abnormal 0-2 The [facility] Comment on above: Performed By: #### U AMIC ####[facility] Acmmvcqwzr7229[address] [place], [place] [address]Dr. Meaganwendie Broderick SPEC GRAVITY <=1.005 Abnormal 1.005-<=1.0 25 The [facility] Comment on above: Performed By: #### U AMIC ####[facility] Rytokzrkpx9640[address] [place], [place] [address]Dr. Slick Broderick UA PROTEIN Negative Normal NEGATIVE/ TRACE The [facility] Comment on above: Performed By: #### U AMIC ####[facility] Ibismlgcen2088[address] [place], [place] [address]Dr. Slick Broderick Urobilinogen Qn (U) 0.2 {Hiren'U}/dL Normal 0.2 - 1. 0 The [facility] Comment on above: Performed By: #### U AMIC ####[facility] Tntomhfawm5644[address] [place], [place] [address]Dr. Slick Broderick WBC 2-5 Abnormal NONE SEEN The [facility] Comment on above: Performed By: #### U AMIC ####[facility] Apnvhdjgeq7590 [place] [phone]. Slick Davie CBC AUTO DIFFon 03-27-2022 BASO # 0.0 103/ul Normal 0.0-0.1 [facility] Comment on above: Performed By: #### C BC ####[facility] Ckiwktrhpx2943 [place] [id number]. Slick Broderick Basophils/100 WBC (Bld) 0.5 % Normal 0.2-2.0 [facility] Comment on above: Performed By: #### C BC ####[facility] Rwdlipktdj[address] [place], [place] [address]Dr. Slick Broderick EO # 0.4 103/ul Normal 0.0-0.7 [facility] Comment on above: Performed By: #### C BC ####[facility] Exwfkplulw7276[address] [place], [place] [address]Dr. Slick Broderick Eosinophils/100 WBC (Bld) 5.2 % Normal 0.9-7.0 [facility] Comment on above: Performed By: #### C BC ####[facility] Pveaidzzzd8[address] [place], [place] [address]Dr. Slick Davie Erythrocyte distribution width (RBC) [Ratio] 13.1 % Normal 11.0-15.0 [facility] Comment on above: Performed By: #### C BC ####[facility] Jkzyspjqba99[address] [place], [place] [address]Dr. Meaganwendie Broderick Hematocrit (Bld) [Volume fraction] 24.7 % Critically low 36.0-48.0 [facility] [facility] Comment on above: Performed By: #### C BC ####[facility] Fkiwdrxfhl[address] [place], [place] [address]Dr. Slick Broderick Hemoglobin (Bld) [Mass/Vol] 7.9 g/dL Critically low 12.0-16.0 [facility] Comment on above: Performed By: #### C BC ####[facility] Rzlcdpum[address] [place], [place] [address]Dr. Slick Broderick IG # 0.06 10e3/ul Critically high 0.00-0.03 [facility] Comment on above: Performed By: #### C BC ####[facility] Ewsqejiccz7[address] [place] [address]Dr. Slick Broderick IG % 0.8 % Critically high 0.0-0.[address] [facility] Comment on above: Performed By: #### C BC ####[facility] Bktcynuesx9795 [place] [address]DrEmma Slick Davie LYMPH # 0.9 103/ul Critically low 1.2-3.8 [facility] Comment on above: Performed By: #### C BC ####[facility] Fdfftqmvyv4596 [place] [address]Dr. Slick Davie Lymphocytes/100 WBC (Bld) 11.1 % Critically low 20.5-60.0 [facility] Comment on above: Performed By: #### C BC ####[facility] Ppjhsdhaky7162 [place] [address]Dr. Meaganwnedie Broderick MANUAL DIFF REQ NO Normal [facility] Comment on above: Performed By: #### C BC ####[facility] Wuzzvzildb8808 [place] [address]Dr. Slick Davie MCH (RBC) [Entitic mass] 29.7 pg Normal 26.7-34.0 [facility] Comment on above: Performed By: #### C BC ####[facility] Ilpkwzwphz0637 [place] [address]Dr. Slick Davie MCHC (RBC) [Mass/Vol] 32.0 g/dL Normal 29.9-35.2 [facility] Comment on above: Performed By: #### C BC ####[facility] Atvnjqzmvc9531 [place] [address]DrEmma Slick Davie MCV (RBC) [Entitic vol] 92.9 fL Normal 81.0-99.0 [facility] Comment on above: Performed By: #### C BC ####[facility] Zvluriknkl4039 [place] [address]DrEmma Broderick MONO # 0.8 103/ul Normal 0.3-0.8 [facility] Comment on above: Performed By: #### C BC ####[facility] Algvlznwdd5183 [place] [id number]. Slick Broderick Monocytes/100 WBC (Bld) 9.5 % Normal 1.7-12.0 [facility] Comment on above: Performed By: #### C BC ####[facility] Sbidcclvje3537 [place] [id number]. Slick Broderick NEUT # 5.8 103/ul Normal 1.4-6.5 [facility] Comment on above: Performed By: #### C BC ####[facility] Vswuodxpax3870 [place] [address]Dr. Slick Broderick Neutrophils/100 WBC (Bld) 72.9 % Normal 43.0-75.0 [facility] Comment on above: Performed By: #### C BC ####[facility] Kisgpddpzq1049 [place] [address]Dr. Slick Broderick Platelet mean volume (Bld) [Entitic vol] 8.9 fL Critically low 9.5-13.5 [facility] Comment on above: Performed By: #### C BC ####[facility] Qcvslmvfwp3705 [place] [id number]. Slick Broderick PLT 220 103/ul Normal 150-450 The [facility] Comment on above: Performed By: #### C BC ####[facility] Ixgwwhtbuy0291 [place] [phone]. Slick Broderick RBC 2.66 106/ul Critically low 4.20-5.[address] [facility] Comment on above: Performed By: #### C BC ####[facility] Btgtmpuofx1496 [place] [phone]. Slick Broderick WBC 7.9 103/ul Normal 4.0-11.0 The [facility] Comment on above: Performed By: #### C BC ####[facility] Qcptvokwyg9726 [place] [phone]. Slick Broderick OCC BLD IMMUNO SCREENon 10- OCCULT BLOOD Positive Abnormal NEGATIVE The [facility] Comment on above: Performed By: #### O BSCRN ####[facility] Jqshycftpd6227 [place] [address]DrEmma Broderick PROF 14(COMP METB)on 03-27-2 022 Albumin [Mass/Vol] 3.2 g/dL Critically low 3.4-5.0 [facility] Comment on above: Performed By: #### C MP ####[facility] Uozrdrkmiv7283 [place] [address]Dr. Slick Broderick Albumin/Globulin [Mass ratio] 0.9 {ratio} Normal [facility] Comment on above: Performed By: #### C MP ####[facility] Vaattdqpdp2264 [place] [address]Dr. Slick Broderick ALP [Catalytic activity/Vol] 101 U/L Normal 46-116 [facility] Comment on above: Performed By: #### C MP ####[facility] Jlfrwtedae[address] [place], [place] [address]Dr. Slick Broderick ALT [Catalytic activity/Vol] 28 U/L Normal 14-59 [facility] Comment on above: Performed By: #### C MP ####[facility] Wsmussbzhg2719 [place] [address]Dr. Slick Broderick Anion gap [Moles/Vol] 11.5 mmol/L Normal [facility] Comment on above: Performed By: #### C MP ####[facility] Ugkfeiiyre6307 [place] [address]Dr. Slick Broderick AST [Catalytic activity/Vol] 21 U/L Normal 15-37 [facility] Comment on above: Performed By: #### C MP ####[facility] Ojbxgdjars1890 [place] [address]DrEmma Broderick Bilirubin [Mass/Vol] 0.2 mg/dL Normal 0.2-1.0 [facility] Comment on above: Performed By: #### C MP ####[facility] Mgetgvhglh4559 [place] [address]Dr. Slick Broderick Calcium [Mass/Vol] 9.3 mg/dL Normal 8.5-10.1 [facility] Comment on above: Performed By: #### C MP ####[facility] Iudqdihpym6898 [place] [phone]. Slick Broderick Chloride [Moles/Vol] 93 mmol/L Critically low 98-107 [facility] Comment on above: Performed By: #### C MP ####[facility] Wvgbvxlzcm7161 [place] [phone]. Slick Broderick CO2 [Moles/Vol] 27.3 mmol/L Normal 21.0-32.0 [facility] Comment on above: Performed By: #### C MP ####[facility] Lhietelmpy9612 [place] [address]Dr. Slick Davie Creatinine [Mass/Vol] 1.98 mg/dL Critically high 0.55-1.02 [facility] Comment on above: Performed By: #### C MP ####[facility] Hwvfwtthqt1924 [place] [address]Dr. Slick Davie EGFR-AF BURMESE 30 mL/min/1.73m2 Critically low >=60 [facility] Comment on above: Performed By: #### C MP ####[facility] Abddeohtqs79[address] [place], [place] [address]Dr. Slick Broderick EGFR-NON AF BURMESE 25 mL/min/1.73m2 Critically low >=60 [facility] Comment on above: Performed By: #### C MP ####[facility] Nondnovgcu3025 [place] [address]Dr. Slick Davie Globulin (S) [Mass/Vol] 3.6 g/dL Normal [facility] Comment on above: Performed By: #### C MP ####[facility] Ockawlcgtu0543 [place] [phone]. Slick Davie Glucose [Mass/Vol] 123 mg/dL Critically high 74-106 [facility] Comment on above: Performed By: #### C MP ####[facility] Xmoigeinqs0970 [place] [phone]. Slick aDvie Potassium [Moles/Vol] 3.8 mmol/L Normal 3.5-5.1 [facility] Comment on above: Performed By: #### C MP ####[facility] Suaqayidxf2416 [place] [address]Dr. Slick Broderick Protein [Mass/Vol] 6.8 g/dL Normal 6.4-8.2 [facility] Comment on above: Performed By: #### C MP ####[facility] Jpzdinyxfc0706 [place] [address]Dr. Slick Broderick Sodium [Moles/Vol] 128 mmol/L Critically low 136-145 Th [facility] Comment on above: Performed By: #### C MP ####[facility] Lmmcrguzau1783 [place] [address]Dr. Slick Broderick Urea nitrogen [Mass/Vol] 64.0 mg/dL Critically high 7.0-18.0 [facility] Comment on above: Performed By: #### C MP ####[facility] Kriykejola[address] [place], [place] [address]Dr. Slick Davie Urea nitrogen/Creatinine [Mass ratio] 32.3 mg/mg Normal [facility] Comment on above: Performed By: #### C MP ####[facility] Nladgnsizz[address] [place], [place] [address]Dr. Slick Broderick TROPONIN, HIGH SENSITIVITYon 03-27-2022 HSTROP 9.0 pg/mL Normal 4.0-51.3 [facility] Comment on above: Result Comment: CUT- OFF POINTS HAVE BEEN ESTABLISHED BASED ON THE FOURTH UNIVERSAL DEFINITIONS OF MYOCARDIALINFARCTION. THE UPPER REFERENCE LIMIT (URL) OF TROPONIN, DEFINED THE 99TH PERCENTILE OFcTnI DISTRIBUTION IN A REFERENCE POPULATION, HAS BEEN CONFIRMED THE DECISION THRESHOLDFOR RI DIAGNOSIS. Performed By: #### H STROPN ####[facility] Wqytxoqvnb[address] [place], [place] [address]Dr. Slick Davie Progress Noteson 03-24-2022 Relay Tester Helper Authentication Interface Message Text 1:32 AM EMERGENCY TRIAGE, TREAT AND TRANSPORT (ET3) DOCUMENTATION OF TELEHEALTH VISIT Date / Time: 03/24/2022 / 1:32 AM Name: Linda Nascimento : 1950 SSN: [id number] EMS Agency: [facility] [] Verbal consent obtained [x] [...] 02-12 Free Thyroxine Index 2.3 Normal 1.2-4.9 [facility] Comment on above: Performed By: #### T HYLC ####[facility] Szxrertrzr5328 [place], [place] [address]SiEmma Broderick T3 Uptake 31 % Normal 24-39 [facility] Comment on above: Performed By: #### T HYLC ####[facility] Nfsnjolett8981 [place], [place] [address]MjEmma Broderick T4 [Mass/Vol] 7.4 ug/dL Normal 4.5-12.0 [facility] Comment on above: Performed By: #### T HYLC ####[facility] Fhjoojdjxk3235 [place] [phone]. Slick Broderick VIT D 25-OH LABCORPon 2021 Vitamin D, 25-Hydroxy 58.7 ng/mL Normal 30.0-100.0 [facility] Comment on above: Result Comment: Karla min D deficiency has been defined by the [place] [facility] and an Endocrine Society practice guideline as alevel of serum 25-OH vitamin D less than 20 ng/mL (1,2).The Endocrine Society went on to further define vitamin Dinsufficiency as a level between 21 and 29 ng/mL (2).1. IOM ([place] of Medicine). 2010. Dietary reference intakes for calcium and D. [place]: The National Academies Press.2. Maryam JIMENEZ, Franklin PENA, Ángela SCHAEFER, et al. Evaluation, treatment, and prevention of vitamin D deficiency: an Endocrine Society clinical practice guideline. JCEM. 2010; 96(7):1911-30. Performed By: #### V ITADLC ####[facility] Lxqxpimrma3243 [place] [address]Dr. Slick Davie CBC AUTO DIFFon 02-11-2022 BASO # 0.0 103/ul Normal 0.0-0.1 [facility] Comment on above: Performed By: #### C BC ####[facility] Ubmphtidgl3349 [place] [phone]. Slick Brodreick Basophils/100 WBC (Bld) 0.6 % Normal 0.2-2.0 [facility] Comment on above: Performed By: #### C BC ####[facility] Djidgjuuhc5416 [place] [phone]. Meaganwendie Broderick EO # 0.3 103/ul Normal 0.0-0.7 [facility] Comment on above: Performed By: #### C BC ####[facility] Evlvnnqyld6292 [place] [phone]. Slick Broderick Eosinophils/100 WBC (Bld) 4.6 % Normal 0.9-7.0 [facility] Comment on above: Performed By: #### C BC ####[facility] Hopoksfxpq5413 [place] [address]Dr. Slick Broderick Erythrocyte distribution width (RBC) [Ratio] 14.0 % Normal 11.0-15.0 [facility] Comment on above: Performed By: #### C BC ####[facility] Kiaaqjgfmm9372 [place] [address]Dr. Slick Broderick Hematocrit (Bld) [Volume fraction] 28.4 % Critically low 36.0-48.0 [facility] Comment on above: Performed By: #### C BC ####[facility] Sjqkyazhhc[address] [place], [place] [address]DrEmma Slick Broderick Hemoglobin (Bld) [Mass/Vol] 9.3 g/dL Critically low 12.0-16.0 [facility] Comment on above: Performed By: #### C BC ####[facility] Nklukxrquc69[address] [place], [place] [address]DrEmma Slick Broderick IG # 0.03 10e3/ul Normal 0.00-0.03 [facility] Comment on above: Performed By: #### C BC ####[facility] Mwqnbjvtec[address] [place], [place] [address]DrEmma Slick Broderick IG % 0.5 % Normal 0.0-0.5 [facility] Comment on above: Performed By: #### C BC ####[facility] Zrdsasrhbv57[address] [place], [place] [address]DrEmma Slick Broderick LYMPH # 0.6 103/ul Critically low 1.2-3.8 [facility] Comment on above: Performed By: #### C BC ####[facility] Dyxcfqbamy04[address] [place], [place] [address]DrEmma Slick Broderick Lymphocytes/100 WBC (Bld) 9.5 % Critically low 20.5-60.0 [facility] Comment on above: Performed By: #### C BC ####[facility] Pxsovmuwhr[address] [place], [place] [address]DrEmma Slick Davie MANUAL DIFF REQ NO Normal [facility] Comment on above: Performed By: #### C BC ####[facility] Uwadcqvfcf2472 [place] [phone]. Slick Davie MCH (RBC) [Entitic mass] 30.5 pg Normal 26.7-34.0 [facility] Comment on above: Performed By: #### C BC ####[facility] Vavijrzvng0737 [place] [address]Dr. Meaganwendie Davie MCHC (RBC) [Mass/Vol] 32.7 g/dL Normal 29.9-35.2 [facility] Comment on above: Performed By: #### C BC ####[facility] Mzhtonbhye8675 [place] [address]Dr. Slick Broderick MCV (RBC) [Entitic vol] 93.1 fL Normal 81.0-99.0 [facility] Comment on above: Performed By: #### C BC ####[facility] Wyetfstjsx9[address] [place], [place] [address]Dr. Slick Broderick MONO # 0.6 103/ul Normal 0.3-0.8 [facility] Comment on above: Performed By: #### C BC ####[facility] Wzuqmoozgx70[address] [place], [place] [address]Dr. Slick Broderick Monocytes/100 WBC (Bld) 8.4 % Normal 1.7-12.0 [facility] Comment on above: Performed By: #### C BC ####[facility] Scmlddxslu86[address] [place], [place] [address]Dr. Slick Broderick NEUT # 5.0 103/ul Normal 1.4-6.5 [facility] Comment on above: Performed By: #### C BC ####[facility] Pxnnnefjjj69[address] [place], [place] [address]DrEmma Broderick Neutrophils/100 WBC (Bld) 76.4 % Critically high 43.0-75.0 [facility] Comment on above: Performed By: #### C BC ####[facility] Qijcoseeqf48[address] [place], [place] [address]DrEmma Broderick Platelet mean volume (Bld) [Entitic vol] 9.3 fL Critically low 9.5-13.5 [facility] Comment on above: Performed By: #### C BC ####[facility] Foguehjlie0369 [place] [phone]. Slick Broderick PLT 192 103/ul Normal 150-450 The [facility] Comment on above: Performed By: #### C BC ####[facility] Ldhtaatjef5364 [place] [phone]. Slick Broderick RBC 3.05 106/ul Critically low 4.20-5.40 The [facility] Comment on above: Performed By: #### C BC ####[facility] Dkvabhqkvi0024 [place] [phone]. Slick Broderick WBC 6.6 103/ul Normal 4.0-11.0 The [facility] Comment on above: Performed By: #### C BC ####[facility] Qkzeehhqao0979 [place] [phone]. Slick Broderick IRONon 02-11-2022 Iron [Mass/Vol] 62.0 ug/dL Normal 50.0-170.[address] [facility] Comment on above: Performed By: #### I YUNIOR ####[facility] Oytuvonysu4384 [place] [phone]. Slick Broderick LIPID PROFILEon 02-11-2022 CHOL-HDL RATIO NORM SEE BELOW Normal [facility] Comment on above: Result Comment: 3.3 - 4.4 LOW RISK 4.4 - 7.1 AVERAGE RISK 7.1 - 11.0 MODERATE RISK >11.0 HIGH RISK Performed By: #### C MP, LIPID, TSH ####[facility] Jgqafcnzpi6676 [place] [phone]. Slick Broderick Cholesterol [Mass/Vol] 204 mg/dL Critically high <=200 The [facility] Comment on above: Performed By: #### C MP, LIPID, TSH ####[facility] Mahgmuteee5982 [place] [phone]. Slick Broderick Cholesterol in HDL [Mass/Vol] 53 mg/dL Normal 40-60 The [facility] Comment on above: Performed By: #### C MP, LIPID, TSH ####[facility] Phavdwnbwd5057 [place] [phone]. Slick Broderick Cholesterol in LDL [Mass/Vol] 134.0 mg/dL Normal [facility] Comment on above: Performed By: #### C MP, LIPID, TSH ####[facility] Tcdgqkizxi3683 [place] [phone]. Slick Broderick Cholesterol.total/Corinne sterol in HDL [Mass ratio] 3.8 {ratio} Normal [facility] Comment on above: Performed By: #### C MP, LIPID, TSH ####[facility] Hmjgxhrmdn7657 [place] [phone]. Slick Broderick HDL NORMAL > or = 60 mg/dl - LOW CARDIOVASCULAR RISK <40 mg/dl - HIGH CARDIOVASCULAR RISK Normal [facility] Comment on above: Performed By: #### C MP, LIPID, TSH ####[facility] Uwiivbwjnd2043 [place] [address]Dr. Slick Broderick LDL CALC NORMAL SEE BELOW Normal [facility] Comment on above: Result Comment: <100 mg/dl OPTIMAL 100 - 129 mg/dl NEAR OR ABOVE OPTIMAL 130 - 159 mg/dl BORDERLINE HIGH 160 - 189 mg/dl HIGH >190 mg/dl VERY HIGH Performed By: #### C MP, LIPID, TSH ####[facility] Vioatvrckm9108 [place] [address]Dr. Slick Broderick Triglyceride [Mass/Vol] 85 mg/dL Normal <=150 T [facility] Comment on above: Performed By: #### C MP, LIPID, TSH ####[facility] Zligombfge6348 [place] [phone]. Slick Broderick VLDL CALC 17.0 mg/dL Normal [facility] Comment on above: Performed By: #### C MP, LIPID, TSH ####[facility] Ldsiwilsaa6009 [place] [address]Dr. Slick Broderick PROF 14(COMP METB)on 022 Albumin [Mass/Vol] 3.5 g/dL Normal 3.4-5.0 [facility] Comment on above: Performed By: #### C MP, LIPID, TSH ####[facility] Pvrlbppred3161 [place] [address]Dr. Meaganwendie Broderick Albumin/Globulin [Mass ratio] 0.9 {ratio} Normal [facility] Comment on above: Performed By: #### C MP, LIPID, TSH ####[facility] Vivqxabmcs6199 [place] [phone]. Meaganwendie Broderick ALP [Catalytic activity/Vol] 93 U/L Normal 46-116 [facility] Comment on above: Performed By: #### C MP, LIPID, TSH ####[facility] Jrrbszmfnx5537 [place] [address]Dr. Slick Broderick ALT [Catalytic activity/Vol] 21 U/L Normal 14-59 [facility] Comment on above: Performed By: #### C MP, LIPID, TSH ####[facility] Zpdfchtuie7906 [place] [address]Dr. Slick Broderick Anion gap [Moles/Vol] 13.7 mmol/L Normal [facility] Comment on above: Performed By: #### C MP, LIPID, TSH ####[facility] Hxsnsabyra6365 [place] [address]Dr. Slick Broderick AST [Catalytic activity/Vol] 13 U/L Critically low 15-37 [facility] Comment on above: Performed By: #### C MP, LIPID, TSH ####[facility] Cqypnsylag6359 [place] [phone]. Slick Broderick Bilirubin [Mass/Vol] 0.4 mg/dL Normal 0.2-1.0 [facility] Comment on above: Performed By: #### C MP, LIPID, TSH ####[facility] Ozseblgzaw5627 [place] [phone]. Slick Broderick Calcium [Mass/Vol] 9.2 mg/dL Normal 8.5-10.1 [facility] Comment on above: Performed By: #### C MP, LIPID, TSH ####[facility] Rlfgnzornm0786 [place] [phone]. Slick Broderick Chloride [Moles/Vol] 96 mmol/L Critically low 98-107 The [facility] Comment on above: Performed By: #### C MP, LIPID, TSH ####[facility] Evhikyjinj2691 [place] [address]Dr. Slick Broderick CO2 [Moles/Vol] 27.8 mmol/L Normal 21.0-32.0 [facility] Comment on above: Performed By: #### C MP, LIPID, TSH ####[facility] Fgacomajwf0753 [place] [address]Dr. Slick Broderick Creatinine [Mass/Vol] 1.52 mg/dL Critically high 0.55-1.02 [facility] Comment on above: Performed By: #### C MP, LIPID, TSH ####[facility] [address]zlipqzmsl[address] [place], [place] [address]Dr. Slick Broderick EGFR-AF BURMESE 41 mL/min/1.73m2 Critically low >=60 [facility] Comment on above: Performed By: #### C MP, LIPID, TSH ####[facility] Lcmlcrcstq[address] [place], [place] [address]Dr. Slick Broderick EGFR-NON AF BURMESE 34 mL/min/1.73m2 Critically low >=60 [facility] Comment on above: Performed By: #### C MP, LIPID, TSH ####[facility] Eyzcqmpzvn[address] [place], [place] [address]Dr. Slick Broderick Globulin (S) [Mass/Vol] 3.7 g/dL Normal [facility] Comment on above: Performed By: #### C MP, LIPID, TSH ####[facility] Zjyvjwmsrp4897 [place] [address]Dr. Slick Broderick Glucose [Mass/Vol] 96 mg/dL Normal 74-106 [facility] Comment on above: Performed By: #### C MP, LIPID, TSH ####[facility] Tfsunuxabe2013 [place] [address]Dr. Slick Broderick Potassium [Moles/Vol] 4.5 mmol/L Normal 3.5-5.1 [facility] Comment on above: Performed By: #### C MP, LIPID, TSH ####[facility] Fibgueargs3413 [place] [address]Dr. Slick Broderick Protein [Mass/Vol] 7.2 g/dL Normal 6.4-8.2 [facility] Comment on above: Performed By: #### C MP, LIPID, TSH ####[facility] Hmxvwdvroj0728 [place] [address]Dr. Slick Broderick Sodium [Moles/Vol] 133 mmol/L Critically low 136-145 Th [facility] Comment on above: Performed By: #### C MP, LIPID, TSH ####[facility] Almhlecmtp9543 [place] [address]Dr. Slick Broderick Urea nitrogen [Mass/Vol] 37.0 mg/dL Critically high 7.0-18.0 [facility] Comment on above: Performed By: #### C MP, LIPID, TSH ####[facility] Khdlnigsee4014 [place] [address]Dr. Slick Broderick Urea nitrogen/Creatinine [Mass ratio] 24.3 mg/mg Normal [facility] Comment on above: Performed By: #### C MP, LIPID, TSH ####[facility] Ufpkuyzvvh4647 [place] [address]Dr. Slick Broderick TSHon 02-11-2022 TSH 3.993 uIU/mL Critically high 0.358-3.740 [facility] Comment on above: Performed By: #### C MP, LIPID, TSH ####[facility] Xuigvcfwky7524 [place] [address]Dr. Slick Broderick PRBC LEUKOREDUCEDon 12-18-19 PRBC LEUKOREDUCED Normal [facility] Comment on above: Performed By: #### P RBC ####[facility] Qkocmjcsie6197 [place] [address]Dr. Slick Broderick PRBC LEUKOREDUCED Cross Match Result Compatible Unit Blood Type O Pos Unit Number [id number] Status Information Transfused Product ID Red Blood Cells Product Code [id number] Normal [facility] Comment on above: Performed By: #### P RBC ####[facility] Qeqvzozaqv[address] [place], [place] [address]Dr. Slick Broderick H PYLORI ANTIBODY IGGon H. PYLORI IGG ABS 0.18 Index Value Normal 0.00-0.79 [facility] Comment on above: Result Comment: Nega tive <0.80 Equivocal 0.80 - 0.89 Positive >0.89 Performed By: #### H PYLLC ####[facility] Mfuakhcdgg[address] [place], [place] [address]Dr. Slick Broderick BNPon 12-14-2021 Natriuretic peptide B (Bld) [Mass/Vol] 846.0 pg/mL Normal <=900.0 [facility] Comment on above: Performed By: #### C MP, BNP ####[facility] Trqzsvdykr[address] [place], [place] [address]Dr. Slick Broderick CBC AUTO DIFFon 12-14-2021 BASO # 0.1 103/ul Normal 0.0-0.1 [facility] Comment on above: Performed By: #### C BC ####[facility] Ijctxuxvwd[address] [place], [place] [address]DrEmma Slick Davie Basophils/100 WBC (Bld) 0.7 % Normal 0.2-2.0 [facility] Comment on above: Performed By: #### C BC ####The [facility] [address] [place] [address]. Slick Broderick EO # 0.3 103/ul Normal 0.0-0.7 [facility] Comment on above: Performed By: #### C BC ####[facility] Ldctyp[address] [place], [place] [address]DrEmma Slick Davie Eosinophils/100 WBC (Bld) 4.6 % Normal 0.9-7.0 [facility] Comment on above: Performed By: #### C BC ####[facility] Ysvckfhgbi[address] [place], [place] [address]DrEmma Slick Broderick Erythrocyte distribution width (RBC) [Ratio] 20.0 % Critically high 11.0-15.0 [facility] Comment on above: Performed By: #### C BC ####[facility] Muznicwrfr[address] [place], [place] [address]Dr. Slick Davie Hematocrit (Bld) [Volume fraction] 29.1 % Critically low 36.0-48.0 The [facility] Comment on above: Performed By: #### C BC ####[facility] Uvsihmwtsp1748 [place] [address]Dr. Slick Davie Hemoglobin (Bld) [Mass/Vol] 9.1 g/dL Critically low 12.0-16.0 The [facility] Comment on above: Performed By: #### C BC ####[facility] Hthaotockr1500 [place] [address]Dr. Slick Broderick IG # 0.06 10e3/ul Critically high 0.00-0.03 [facility] Comment on above: Performed By: #### C BC ####[facility] Dasvybtchj1154 [place] [address]Dr. Slick Broderick IG % 0.9 % Critically high 0.0-0.5 The [facility] Comment on above: Performed By: #### C BC ####[facility] Uqwuhggtcg6132 [place] [address]DrEmma Broderick LYMPH # 0.8 103/ul Critically low 1.2-3.8 The [facility] Comment on above: Performed By: #### C BC ####[facility] Mthooyqniy7588 [place] [address]DrEmma Broderick Lymphocytes/100 WBC (Bld) 11.2 % Critically low 20.5-60.0 The [facility] Comment on above: Performed By: #### C BC ####[facility] Kecsdleckw1350 [place] [address]DrEmma Broderick MANUAL DIFF REQ NO Normal The [facility] Comment on above: Performed By: #### C BC ####[facility] Tqokfznsni5214 [place] [address]DrEmma Broderick MCH (RBC) [Entitic mass] 30.5 pg Normal 26.7-34.0 The [facility] Comment on above: Performed By: #### C BC ####[facility] Ahuohtbfya8284 [place] [address]Dr. Slick Broderick MCHC (RBC) [Mass/Vol] 31.3 g/dL Normal 29.9-35.2 [facility] Comment on above: Performed By: #### C BC ####[facility] Dszlziswll2482 [place] [id number]. Slick Broderick MCV (RBC) [Entitic vol] 97.7 fL Normal 81.0-99.0 [facility] Comment on above: Performed By: #### C BC ####[facility] Zmffvnjrhh8331 [place] [address]Dr. Slick Broderick MONO # 0.7 103/ul Normal 0.3-0.8 [facility] Comment on above: Performed By: #### C BC ####[facility] Ireipgdbse3326 [place] [address]Dr. Slick Davie Monocytes/100 WBC (Bld) 9.7 % Normal 1.7-12.0 [facility] Comment on above: Performed By: #### C BC ####[facility] Ydaajiibms[address] [place], [place] [address]Dr. Slick Broderick NEUT # 4.9 103/ul Normal 1.4-6.5 [facility] Comment on above: Performed By: #### C BC ####[facility] Bjmpfgxdch0987 [place] [address]Dr. Slick Broderick Neutrophils/100 WBC (Bld) 72.9 % Normal 43.0-75.0 The [facility] Comment on above: Performed By: #### C BC ####[facility] Maukohcifu7227 [place] [address]Dr. Slick Davie Platelet mean volume (Bld) [Entitic vol] 8.9 fL Critically low 9.5-13.5 The [facility] Comment on above: Performed By: #### C BC ####[facility] Qzuzsiagnw1774 [place] [address]Dr. Slick Davie PLT 239 103/ul Normal 150-450 The [facility] Comment on above: Performed By: #### C BC ####[facility] Xdthrhqlks2101 [place] [id number]. Slick Broderick RBC 2.98 106/ul Critically low 4.20-5.[address] [facility] Comment on above: Performed By: #### C BC ####[facility] Yuelxlisfc7353 [place] [address]Dr. Slick Broderick WBC 6.8 103/ul Normal 4.0-11.0 The [facility] Comment on above: Performed By: #### C BC ####[facility] Wuicavzdzr4349 [place] [address]Dr. Slick Broderick BASO # 0.1 103/ul Normal 0.0-0.1 The [facility] Comment on above: Performed By: #### C BC ####[facility] Ltkbkavbef[address] [place], [place] [address]Dr. Slick Broderick Basophils/100 WBC (Bld) 0.9 % Normal 0.2-2.0 [facility] Comment on above: Performed By: #### C BC ####[facility] Bkohuvyliq[address] [place], [place] [address]Dr. Slick Broderick EO # 0.3 103/ul Normal 0.0-0.7 [facility] Comment on above: Performed By: #### C BC ####[facility] Znfqgpbwck[address] [place], [place] [address]Dr. Slick Broderick Eosinophils/100 WBC (Bld) 4.9 % Normal 0.9-7.0 The [facility] Comment on above: Performed By: #### C BC ####[facility] Hsphwyajpt[address] [place], [place] [address]Dr. Slick Broderick Erythrocyte distribution width (RBC) [Ratio] 20.3 % Critically high 11.0-15.0 [facility] Comment on above: Performed By: #### C BC ####[facility] Zictotijvb[address] [place], [place] [address]Dr. Slick Broderick Hematocrit (Bld) [Volume fraction] 27.6 % Critically low 36.0-48.0 [facility] Comment on above: Performed By: #### C BC ####[facility] Rovlumycfd2286 [place] [address]Dr. Slick Broderick Hemoglobin (Bld) [Mass/Vol] 8.7 g/dL Critically low 12.0-16.0 The [facility] Comment on above: Performed By: #### C BC ####[facility] Faaacsvpnf8230 [place] [phone]. Slick Broderick IG # 0.05 10e3/ul Critically high 0.00-0.03 [facility] Comment on above: Performed By: #### C BC ####[facility] Zanepzsemm2996 [place] [address]Dr. Slick Broderick IG % 0.7 % Critically high 0.0-0.5 The [facility] Comment on above: Performed By: #### C BC ####[facility] Wnrnzpmtdv8690 [place] [address]Dr. Slick Broderick LYMPH # 0.9 103/ul Critically low 1.2-3.8 The [facility] Comment on above: Performed By: #### C BC ####[facility] Rziduwofmd0857 [place] [address]Dr. Slick Broderick Lymphocytes/100 WBC (Bld) 13.1 % Critically low 20.5-60.0 The [facility] Comment on above: Performed By: #### C BC ####[facility] Ozttapzuwf0032 [place] [address]Dr. Slick Broderick MANUAL DIFF REQ NO Normal The [facility] Comment on above: Performed By: #### C BC ####[facility] Epceiqseid5264 [place] [address]Dr. Slick Broderick MCH (RBC) [Entitic mass] 31.0 pg Normal 26.7-34.0 The [facility] Comment on above: Performed By: #### C BC ####[facility] Ctjfktnelu[address] [place], [place] [address]Dr. Slick Broderick MCHC (RBC) [Mass/Vol] 31.5 g/dL Normal 29.9-35.2 The [facility] Comment on above: Performed By: #### C BC ####[facility] Iyhqlehxbo4358 [place] [phone]. Slick Broderick MCV (RBC) [Entitic vol] 98.2 fL Normal 81.0-99.0 [facility] Comment on above: Performed By: #### C BC ####[facility] Ulqrryptst2569 [place] [phone]. Slick Broderick MONO # 0.8 103/ul Normal 0.3-0.8 [facility] Comment on above: Performed By: #### C BC ####[facility] Tqcpjxdeld5404 [place] [phone]. Slcik Broderick Monocytes/100 WBC (Bld) 11.4 % Normal 1.7-12.0 [facility] Comment on above: Performed By: #### C BC ####[facility] Gsjtadlfjl6306 [place] [phone]. Slick Broderick NEUT # 4.8 103/ul Normal 1.4-6.5 [facility] Comment on above: Performed By: #### C BC ####[facility] Kksctvsidv4582 [place] [phone]. Slick Broderick Neutrophils/100 WBC (Bld) 69.0 % Normal 43.0-75.0 [facility] Comment on above: Performed By: #### C BC ####[facility] Wyhcrqqiwb1214 [place] [phone]. Slick Broderick Platelet mean volume (Bld) [Entitic vol] 9.3 fL Critically low 9.5-13.5 [facility] Comment on above: Performed By: #### C BC ####[facility] Raukobkmdu9004 [place] [phone]. Slick Broderick PLT 229 103/ul Normal 150-450 The [facility] Comment on above: Performed By: #### C BC ####[facility] Uvmzxgwtam6779 [place] [phone]. Slick Broderick RBC 2.81 106/ul Critically low 4.20-5.40 The [facility] Comment on above: Performed By: #### C BC ####[facility] Kqszwftxxj4199 [place] [address]Dr. Slick Broderick WBC 7.0 103/ul Normal 4.0-11.0 [facility] Comment on above: Performed By: #### C BC ####[facility] Orvzspxasb4780 [place] [address]Dr. Slick Broderick POINT OF CARE GLUCOSEon Glucose [Mass/Vol] 255 mg/dL Critically high 74-106 [facility] Comment on above: Performed By: #### P OCGLUC ####[facility] Slowyusnsm[address] [place], [place] [address]Dr. Slick Broderick PROF 14(COMP METB)on 022 Albumin [Mass/Vol] 2.3 g/dL Critically low 3.4-5.0 [facility] Comment on above: Performed By: #### C MP, BNP ####[facility] Qdescmpgnv57[address] [place], [place] [address]Dr. Slick Broderick Albumin/Globulin [Mass ratio] 0.6 {ratio} Normal [facility] Comment on above: Performed By: #### C MP, BNP ####[facility] Havwexfeyh40[address] [place], [place] [address]Dr. Slick Broderick ALP [Catalytic activity/Vol] 94 U/L Normal 46-116 [facility] Comment on above: Performed By: #### C MP, BNP ####[facility] Mufljfdces8498[address] [place], [place] [address]Dr. Slick Broderick ALT [Catalytic activity/Vol] 17 U/L Normal 14-59 [facility] Comment on above: Performed By: #### C MP, BNP ####[facility] Xkwapyawlf5425[address] [place], [place] [address]Dr. Slick Broderick Anion gap [Moles/Vol] 11.6 mmol/L Normal [facility] Comment on above: Performed By: #### C MP, BNP ####[facility] Fbcvengwcq1257[address] [place], [place] [address]Dr. Slick Broderick AST [Catalytic activity/Vol] 13 U/L Critically low 15-37 [facility] Comment on above: Performed By: #### C MP, BNP ####[facility] Ujptkhjtcp[address] [place], [place] [address]Dr. Slick Broderick Bilirubin [Mass/Vol] 0.3 mg/dL Normal 0.2-1.0 [facility] Comment on above: Performed By: #### C MP, BNP ####[facility] Inamvhmizr76[address] [place], [place] [address]Dr. Slick Broderick Calcium [Mass/Vol] 7.9 mg/dL Critically low 8.5-10.1 Th [facility] Comment on above: Performed By: #### C MP, BNP ####[facility] Swglgcujir303[address] [place], [place] [address]Dr. Slick Broderick Chloride [Moles/Vol] 104 mmol/L Normal 98-107 [facility] Comment on above: Performed By: #### C MP, BNP ####[facility] Jcvkzodrpt280[address] [place], [place] [address]Dr. Slick Broderick CO2 [Moles/Vol] 25.1 mmol/L Normal 21.0-32.0 [facility] Comment on above: Performed By: #### C MP, BNP ####[facility] Rxmcgrfmyd7360[address] [place], [place] [address]Dr. Slick Broderick Creatinine [Mass/Vol] 1.64 mg/dL Critically high 0.55-1.02 [facility] Comment on above: Performed By: #### C MP, BNP ####[facility] Bptjnefwde9[address] [place], [place] [address]Dr. Slick Broderick EGFR-AF BURMESE 37 mL/min/1.73m2 Critically low >=60 The [facility] Comment on above: Performed By: #### C MP, BNP ####[facility] Vrzfdcctzt9345[address] [place], [place] [address]Dr. Slick Broderick EGFR-NON AF BURMESE 31 mL/min/1.73m2 Critically low >=60 [facility] Comment on above: Performed By: #### C MP, BNP ####[facility] Zuhdidjpgz3039[address] [place], [place] [address]Dr. Slick Broderick Globulin (S) [Mass/Vol] 3.6 g/dL Normal T [facility] Comment on above: Performed By: #### C MP, BNP ####[facility] Vewavxiuqr3285[address] [place], [place] [address]Dr. Slick Broderick Glucose [Mass/Vol] 100 mg/dL Normal 74-106 [facility] Comment on above: Performed By: #### C MP, BNP ####[facility] Xlyaaukrkc1489[address] [place], [place] [address]Dr. Slick Broderick Potassium [Moles/Vol] 4.7 mmol/L Normal 3.5-5.1 [facility] Comment on above: Performed By: #### C MP, BNP ####[facility] Niznbleoxj2846[address] [place], [place] [address]Dr. Slick Broderick Protein [Mass/Vol] 5.9 g/dL Critically low 6.4-8.2 Th [facility] Comment on above: Performed By: #### C MP, BNP ####[facility] Icddcfsbks[address] [place], [place] [address]Dr. Slick Broderick Sodium [Moles/Vol] 136 mmol/L Normal 136-145 [facility] Comment on above: Performed By: #### C MP, BNP ####[facility] Eqaffmtpzh777[address] [place], [place] [address]Dr. Slick Broderick Urea nitrogen [Mass/Vol] 27.0 mg/dL Critically high 7.0-18.0 [facility] Comment on above: Performed By: #### C MP, BNP ####[facility] Gqijrwedjl7315[address] [place], [place] [address]Dr. Slick Broderick Urea nitrogen/Creatinine [Mass ratio] 16.5 mg/mg Normal [facility] Comment on above: Performed By: #### C MP, BNP ####[facility] Cytolbxhrq070[address] [place], [place] [address]Dr. Slick Broderick CBC AUTO DIFFon 12-13-2021 BASO # 0.0 103/ul Normal 0.0-0.1 [facility] Comment on above: Performed By: #### C BC ####[facility] Rzimiyswrp0957 [place] [phone]. Slick Broderick Basophils/100 WBC (Bld) 0.5 % Normal 0.2-2.0 [facility] Comment on above: Performed By: #### C BC ####[facility] Hpvaksfekt9452 [place] [address]Dr. Slick Broderick EO # 0.3 103/ul Normal 0.0-0.7 [facility] Comment on above: Performed By: #### C BC ####[facility] Ercytmjvlh9169[address] [place], [place] [address]Dr. Slick Broderick Eosinophils/100 WBC (Bld) 4.4 % Normal 0.9-7.0 [facility] Comment on above: Performed By: #### C BC ####[facility] Hslcjcjgja3[address] [place], [place] [address]Dr. Slick Broderick Erythrocyte distribution width (RBC) [Ratio] 20.5 % Critically high 11.0-15.0 [facility] Comment on above: Performed By: #### C BC ####[facility] Etpymqkjsn9[address] [place], [place] [address]Dr. Slick Broderick Hematocrit (Bld) [Volume fraction] 29.5 % Critically low 36.0-48.0 [facility] Comment on above: Performed By: #### C BC ####[facility] Aifwhvmcjf456[address] [place], [place] [address]Dr. Slick Broderick Hemoglobin (Bld) [Mass/Vol] 9.3 g/dL Critically low 12.0-16.0 [facility] Comment on above: Result Comment: post transfusion Performed By: #### C BC ####[facility] Vfngtaolpc[address] [place], [place] [address]Dr. Slick Broderick IG # 0.07 10e3/ul Critically high 0.00-0.03 [facility] Comment on above: Performed By: #### C BC ####[facility] [address]zrsh[address] [place], [place] [address]Dr. Slick Broderick IG % 0.9 % Critically high 0.0-0.[address] [facility] Comment on above: Performed By: #### C BC ####[facility] Daracmvnnk6392 [place] [phone]. Slick Davie LYMPH # 0.9 103/ul Critically low 1.2-3.8 [facility] Comment on above: Performed By: #### C BC ####[facility] Nzprqhzwbk5372 [place] [phone]. Meaganwendie Broderick Lymphocytes/100 WBC (Bld) 11.5 % Critically low 20.5-60.0 [facility] Comment on above: Performed By: #### C BC ####[facility] Xbtnojszcu8103 [place] [phone]. Slick Broderick MANUAL DIFF REQ NO Normal [facility] Comment on above: Performed By: #### C BC ####[facility] Mbcojjupur9796 [place] [phone]. Slick Broderick MCH (RBC) [Entitic mass] 30.9 pg Normal 26.7-34.0 [facility] Comment on above: Performed By: #### C BC ####[facility] Uosrfntzkz6600 [place] [phone]. Slick Davie MCHC (RBC) [Mass/Vol] 31.5 g/dL Normal 29.9-35.2 [facility] Comment on above: Performed By: #### C BC ####[facility] Gquxrhjofx6073 [place] [phone]. Slick Broderick MCV (RBC) [Entitic vol] 98.0 fL Normal 81.0-99.0 [facility] Comment on above: Performed By: #### C BC ####[facility] Nezlncwwfa8371 [place] [phone]. Slick Broderick MONO # 0.6 103/ul Normal 0.3-0.8 [facility] Comment on above: Performed By: #### C BC ####[facility] Llmvqnujbv0427 [place] [phone]. Slick Broderick Monocytes/100 WBC (Bld) 8.6 % Normal 1.7-12.0 [facility] Comment on above: Performed By: #### C BC ####[facility] Tppteutmly6572 [place] [phone]. Slick Broderick NEUT # 5.5 103/ul Normal 1.4-6.5 [facility] Comment on above: Performed By: #### C BC ####[facility] Najvlvfxxz4608 [place] [phone]. Slick Broderick Neutrophils/100 WBC (Bld) 74.1 % Normal 43.0-75.0 [facility] Comment on above: Performed By: #### C BC ####[facility] Qzrdglvyrr0691 [place] [phone]. Slick Broderick Platelet mean volume (Bld) [Entitic vol] 9.0 fL Critically low 9.5-13.5 [facility] Comment on above: Performed By: #### C BC ####[facility] Wyrrplzzzh7172 [place] [address]Dr. Slick Broderick PLT 231 103/ul Normal 150-450 [facility] Comment on above: Performed By: #### C BC ####[facility] Uyqqaoxjuj6054 [place] [phone]. Slick Broderick RBC 3.01 106/ul Critically low 4.20-5.[address] [facility] Comment on above: Performed By: #### C BC ####[facility] Nlomoffmen2718 [place] [address]Dr. Slick Broderick WBC 7.5 103/ul Normal 4.0-11.0 The [facility] Comment on above: Performed By: #### C BC ####[facility] Lsnpscxuia1730 [place] [phone]. Slick Broderick BASO # 0.0 103/ul Normal 0.0-0.1 [facility] Comment on above: Performed By: #### C BC ####[facility] Velsigyzrt2364 [place] [address]Dr. Slick Broderick Basophils/100 WBC (Bld) 0.3 % Normal 0.2-2.0 [facility] Comment on above: Performed By: #### C BC ####[facility] Wcjiavtygp2134 [place] [phone]. Slick Broderick EO # 0.3 103/ul Normal 0.0-0.7 The [facility] Comment on above: Performed By: #### C BC ####[facility] Lsuezxaipq9917 [place] [phone]. Slick Broderick Eosinophils/100 WBC (Bld) 3.8 % Normal 0.9-7.0 The [facility] Comment on above: Performed By: #### C BC ####[facility] Fyaikyotrk1092 [place] [address]Dr. Slick Broderick Erythrocyte distribution width (RBC) [Ratio] 17.4 % Critically high 11.0-15.0 [facility] Comment on above: Performed By: #### C BC ####[facility] Fbbkaukyth3521 [place] [address]Dr. Slick Broderick Hematocrit (Bld) [Volume fraction] 22.4 % Critically low 36.0-48.0 The [facility] Comment on above: Result Comment: Test Repeated Critical Value Verified Performed By: #### C BC ####[facility] Uimkpognnt8073 [place] [address]Dr. Slick Broderick Hemoglobin (Bld) [Mass/Vol] 7.1 g/dL Critically low 12.0-16.0 The [facility] Comment on above: Performed By: #### C BC ####[facility] Igzscqltme3848 [place] [address]Dr. Slick Broderick IG # 0.06 10e3/ul Critically high 0.00-0.03 The [facility] Comment on above: Performed By: #### C BC ####[facility] Dhldwqnvzy9749 [place] [address]Dr. Slick Broderick IG % 0.8 % Critically high 0.0-0.5 [facility] Comment on above: Performed By: #### C BC ####[facility] Heitzclsoq7901 [place] [address]Dr. Slick Broderick LYMPH # 0.8 103/ul Critically low 1.2-3.8 The [facility] Comment on above: Performed By: #### C BC ####[facility] Pupyzhlrvv6328 [place] [phone]. Slick Davie Lymphocytes/100 WBC (Bld) 10.7 % Critically low 20.5-60.0 [facility] Comment on above: Performed By: #### C BC ####[facility] Clsprvviop6868 [place] [phone]. Slick Broderick MANUAL DIFF REQ NO Normal [facility] Comment on above: Performed By: #### C BC ####[facility] Ratgowlnnk9218 [place] [phone]. Slick Broderick MCH (RBC) [Entitic mass] 32.3 pg Normal 26.7-34.0 [facility] Comment on above: Performed By: #### C BC ####[facility] Oaphgkuubo8849 [place] [phone]. Slick Broderick MCHC (RBC) [Mass/Vol] 31.7 g/dL Normal 29.9-35.2 [facility] Comment on above: Performed By: #### C BC ####[facility] Vkgwxapaxo3620 [place] [phone]. Slick Broderick MCV (RBC) [Entitic vol] 101.8 fL Critically high 81.0-99 .0 [facility] Comment on above: Performed By: #### C BC ####[facility] Yripvlecqp1421 [place] [phone]. Slick Broderick MONO # 0.8 103/ul Normal 0.3-0.8 [facility] Comment on above: Performed By: #### C BC ####[facility] Mjrdaaaigi3966 [place] [phone]. Slick Broderick Monocytes/100 WBC (Bld) 10.7 % Normal 1.7-12.0 [facility] Comment on above: Performed By: #### C BC ####[facility] Itsvpqynap4575 [place] [phone] Broderick NEUT # 5.6 103/ul Normal 1.4-6.5 [facility] Comment on above: Performed By: #### C BC ####[facility] Uvdnyxfjea5551 [place] [phone]. Slick Davie Neutrophils/100 WBC (Bld) 73.7 % Normal 43.0-75.0 [facility] Comment on above: Performed By: #### C BC ####[facility] Bgakawjxtr4983 [place] [phone]. Meaganwendie Davie Platelet mean volume (Bld) [Entitic vol] 9.4 fL Critically low 9.5-13.5 [facility] Comment on above: Performed By: #### C BC ####[facility] Uopibzegdk4320 [place] [phone]. Slick Broderick PLT 209 103/ul Normal 150-450 [facility] Comment on above: Performed By: #### C BC ####[facility] Xcgkksojmq0217 [place] [phone]. Slick Broderick RBC 2.20 106/ul Critically low 4.20-5.[address] [facility] Comment on above: Performed By: #### C BC ####[facility] Vnpzadzssk0837 [place] [phone]. Slick Broderick WBC 7.6 103/ul Normal 4.0-11.0 [facility] Comment on above: Performed By: #### C BC ####[facility] Vqusesebrl8533 [place] [phone] Broderick PROF 14(COMP METB)on 022 Albumin [Mass/Vol] 2.1 g/dL Critically low 3.4-5.0 [facility] Comment on above: Performed By: #### C MP ####[facility] Ddrgduhwhn4130 [place] [phone] Broderick Albumin/Globulin [Mass ratio] 0.7 {ratio} Normal [facility] Comment on above: Performed By: #### C MP ####[facility] Vvbtagxpoq7687 [place] [id number] Broderick ALP [Catalytic activity/Vol] 83 U/L Normal 46-116 [facility] Comment on above: Performed By: #### C MP ####[facility] Mpyoqazfic9771 [place] [phone]. Slick Broderick ALT [Catalytic activity/Vol] 12 U/L Critically low 14-59 [facility] Comment on above: Performed By: #### C MP ####[facility] Ivmoancvzg5402 [place] [id number]. Slick Broderick Anion gap [Moles/Vol] 14.0 mmol/L Normal Th [facility] Comment on above: Performed By: #### C MP ####[facility] Ydreflvyjg6836 [place] [id number]. Slick Broderick AST [Catalytic activity/Vol] 13 U/L Critically low 15-37 [facility] Comment on above: Performed By: #### C MP ####[facility] Ydkeehlxre8810 [place] [phone]. Slick Davie Bilirubin [Mass/Vol] 0.3 mg/dL Normal 0.2-1.0 [facility] Comment on above: Performed By: #### C MP ####[facility] Debgfaykwg0471 [place] [phone]. Slick Broderick Calcium [Mass/Vol] 7.4 mg/dL Critically low 8.5-10.1 [facility] Comment on above: Performed By: #### C MP ####[facility] Dytiqhlhft0019 [place] [phone]. Slick Broderick Chloride [Moles/Vol] 105 mmol/L Normal 98-107 [facility] Comment on above: Performed By: #### C MP ####[facility] Jpjlaznhnx8905 [place] [id number]. Slick Broderick CO2 [Moles/Vol] 23.0 mmol/L Normal 21.0-32.0 [facility] Comment on above: Performed By: #### C MP ####[facility] Vkxtdglqcl5912 [place] [phone]. Slick Davie Creatinine [Mass/Vol] 1.80 mg/dL Critically high 0.55-1.02 [facility] Comment on above: Performed By: #### C MP ####[facility] Xmsganrdaq8922 [place] [phone]. Slick Broderick EGFR-AF BURMESE 33 mL/min/1.73m2 Critically low >=60 [facility] Comment on above: Performed By: #### C MP ####[facility] Xtttrfmfab5099 [place] [phone]. Slick Broderick EGFR-NON AF BURMESE 28 mL/min/1.73m2 Critically low >=60 [facility] Comment on above: Performed By: #### C MP ####[facility] Spdwfnhohh4901 [place] [phone]. Slick Davie Globulin (S) [Mass/Vol] 3.2 g/dL Normal T [facility] Comment on above: Performed By: #### C MP ####[facility] Twrnlizsjf0940 [place] [address]Dr. Slick Davie Glucose [Mass/Vol] 85 mg/dL Normal 74-106 [facility] Comment on above: Performed By: #### C MP ####[facility] Vfrinqtcut7177 [place] [phone]. Slick Davie Potassium [Moles/Vol] 5.0 mmol/L Normal 3.5-5.1 [facility] Comment on above: Performed By: #### C MP ####[facility] Mgfnzbddxa8307 [place] [phone]. Slick Broderick Protein [Mass/Vol] 5.3 g/dL Critically low 6.4-8.2 Th [facility] Comment on above: Performed By: #### C MP ####[facility] Hszleqneat9429 [place] [phone]. Slick Broderick Sodium [Moles/Vol] 137 mmol/L Normal 136-145 [facility] Comment on above: Performed By: #### C MP ####[facility] Jnkruopfql8370 [place] [phone]. Slick Davie Urea nitrogen [Mass/Vol] 30.0 mg/dL Critically high 7.0-18.0 [facility] Comment on above: Performed By: #### C MP ####[facility] Pzbuczjvth[address] [place], [place] [address]Dr. Slick Broderick Urea nitrogen/Creatinine [Mass ratio] 16.7 mg/mg Normal [facility] Comment on above: Performed By: #### C MP ####[facility] Zvejknmcyg14[address] [place], [place] [address]Dr. Slick Broderick ABO RH RETYPEon 12-12-2021 ABO and Rh group Nom (Bld) DONE Normal [facility] Comment on above: Performed By: #### R ETYPE ####[facility] Ctlutfxxhr[address] [place], [place] [address]Dr. Slick Broderick BNPon 12-12-2021 Natriuretic peptide B (Bld) [Mass/Vol] 952.0 pg/mL Critically high <=900.0 [facility] Comment on above: Performed By: #### B ADVISOR [employer] F[employer]ER, CRP, CMP ####[facility] Kpjbxbdgbc25[address] [place], [place] [address]Dr. Slick Broderick CBC AUTO DIFFon 12-12-2021 BASO # 0.0 103/ul Normal 0.0-0.1 [facility] Comment on above: Performed By: #### C BC ####[facility] Qjxbidfjxg95[address] [place], [place] [address]Dr. Slick Davie Basophils/100 WBC (Bld) 0.2 % Normal 0.2-2.0 T [facility] Comment on above: Performed By: #### C BC ####[facility] Qkhevybxja9426[address] [place], [place] [address]Dr. Slick Broderick EO # 0.2 103/ul Normal 0.0-0.7 The [facility] Comment on above: Performed By: #### C BC ####[facility] Zpapfwtcid59[address] [place], [place] [address]Dr. Slick Davie Eosinophils/100 WBC (Bld) 2.6 % Normal 0.9-7.0 The [facility] Comment on above: Performed By: #### C BC ####[facility] Klsqgtnzyb2100 [place] [address]Dr. Slick Broderick Erythrocyte distribution width (RBC) [Ratio] 17.2 % Critically high 11.0-15.0 [facility] Comment on above: Performed By: #### C BC ####[facility] Aefvchtljl1365 [place] [address]Dr. Slick Broderick Hematocrit (Bld) [Volume fraction] 24.0 % Critically low 36.0-48.0 The [facility] Comment on above: Performed By: #### C BC ####[facility] Zhmvhcathy[address] [place], [place] [address]Dr. Slick Broderick Hemoglobin (Bld) [Mass/Vol] 7.7 g/dL Critically low 12.0-16.0 [facility] Comment on above: Performed By: #### C BC ####[facility] Ajhfdtnoba[address] [place], [place] [address]Dr. Slick Broderick IG # 0.05 10e3/ul Critically high 0.00-0.03 [facility] Comment on above: Performed By: #### C BC ####[facility] Scecegbejl079[address] [place], [place] [address]Dr. Meaganwendie Broderick IG % 0.5 % Normal 0.0-0.5 [facility] Comment on above: Performed By: #### C BC ####[facility] Czasoktybm[address] [place], [place] [address]Dr. Slick Broderick LYMPH # 0.7 103/ul Critically low 1.2-3.8 The [facility] Comment on above: Performed By: #### C BC ####[facility] Zburhppvdj6746[address] [place], [place] [address]Dr. Slick Broderick Lymphocytes/100 WBC (Bld) 7.7 % Critically low 20.5-60.0 The [facility] Comment on above: Performed By: #### C BC ####[facility] Ymhxpnwefd17[address] [place], [place] [address]Dr. Meaganwendie Broderick MANUAL DIFF REQ NO Normal The [facility] Comment on above: Performed By: #### C BC ####[facility] Taasscfjuw4385 [place] [address]Dr. Slick Broderick MCH (RBC) [Entitic mass] 32.6 pg Normal 26.7-34.0 [facility] Comment on above: Performed By: #### C BC ####[facility] Qvvlatbgor9046 [place] [address]Dr. Slick Broderick MCHC (RBC) [Mass/Vol] 32.1 g/dL Normal 29.9-35.2 [facility] Comment on above: Performed By: #### C BC ####[facility] Bbdttphhdp6[address] [place], [place] [address]Dr. Slick Davie MCV (RBC) [Entitic vol] 101.7 fL Critically high 81.0-99 .0 [facility] Comment on above: Performed By: #### C BC ####[facility] Icvwfpjbuo18[address] [place], [place] [address]Dr. Slick Broderick MONO # 0.8 103/ul Normal 0.3-0.8 [facility] Comment on above: Performed By: #### C BC ####[facility] Phgmoselwp4023 [place] [address]Dr. Slick Broderick Monocytes/100 WBC (Bld) 8.5 % Normal 1.7-12.0 [facility] Comment on above: Performed By: #### C BC ####[facility] Eezatdqgwu7[address] [place], [place] [address]Dr. Slick Broderick NEUT # 7.3 103/ul Critically high 1.4-6.5 The [facility] Comment on above: Performed By: #### C BC ####[facility] [address]rh[address]crk[address] [place], [place] [address]Dr. Slick Broderick Neutrophils/100 WBC (Bld) 80.5 % Critically high 43.0-75.0 The [facility] Comment on above: Performed By: #### C BC ####[facility] Eckkqaqtdp6[address] [place], [place] [address]Dr. Slick Broderick Platelet mean volume (Bld) [Entitic vol] 8.9 fL Critically low 9.5-13.5 [facility] Comment on above: Performed By: #### C BC ####[facility] Izfvqlkkbn1524 [place] [phone]. Slick Broderick PLT 204 103/ul Normal 150-450 The [facility] Comment on above: Performed By: #### C BC ####[facility] Mmdzixbvix0809 [place] [phone]. Slick Broderick RBC 2.36 106/ul Critically low 4.20-5.40 The [facility] Comment on above: Performed By: #### C BC ####[facility] Heukhydwfo2179 [place] [phone]. Slick Broderick WBC 9.1 103/ul Normal 4.0-11.0 The [facility] Comment on above: Performed By: #### C BC ####[facility] Zbvsiyrbhu6799 [place] [phone]. Slick Broderick CBC W MANUAL DIFFon 12-13-19 22 ATYPICAL LYMPH # Normal The [facility] Comment on above: Performed By: #### C BCMAN ####[facility] Nhzttqvkty7716 [place] [phone]. Slick Broderick ATYPICAL LYMPH % Normal The [facility] Comment on above: Performed By: #### C BCMAN ####[facility] Djxuggzqjv1793 [place] [address]Dr. Slick Broderick BAND # Normal 0.0-0.3 The [facility] Comment on above: Performed By: #### C BCMAN ####[facility] Jgpedgqgot1076 [place] [phone]. Yilan Broderick BAND % Normal 0-5 The [facility] Comment on above: Performed By: #### C BCMAN ####[facility] Aaxdhepcyw4673 [place] [phone]. Slick Broderick BASOM # 0.00 103/ul Normal 0.00-0.10 The [facility] Comment on above: Performed By: #### C BCMAN ####[facility] Pztuqmaydb0791 [place] [phone]. Slick Broderick BASOM % 0.0 % Critically low 0.2-2.0 The [facility] Comment on above: Performed By: #### C AIDEN ####[facility] Ovonalqujx1977 [place] [address]Dr. Slick Broderick BLAST # Normal [facility] Comment on above: Performed By: #### C AIDEN ####[facility] Ecqskocngf5491 [place] [phone]. Slick Broderick BLAST % Normal The [facility] Comment on above: Performed By: #### C AIDEN ####[facility] Fxsfhalduj9773 [place] [address]Dr. Slick Broderick CORRECTED WBC Normal 4.0-11.0 The [facility] Comment on above: Performed By: #### C AIDEN ####[facility] Fcyrmbqogg4349 [place] [address]Dr. Slick Broderick EOS # 0.35 103/ul Normal 0.00-0.70 [facility] Comment on above: Performed By: #### C AIDEN ####[facility] Elwsqsiamq[address] [place], [place] [address]Dr. Slick Broderick EOS% 3.0 % Normal 0.9-7.0 [facility] Comment on above: Performed By: #### C AIDEN ####[facility] Apuqhakida1871 [place] [address]Dr. Slick Broderick HCT 21.4 % Critically low 36.0-48.0 The [facility] Comment on above: Result Comment: TEST REPEATED CRITICAL VALUE VERIFIED Performed By: #### C AIDEN ####[facility] Zxwavjnwwg6344 [place] [address]Dr. Slick Broderick HGB 6.6 g/dl Critically low 12.0-16.0 The [facility] Comment on above: Result Comment: TEST REPEATED CRITICAL VALUE VERIFIED Performed By: #### C AIDEN ####[facility] Ggwxsdyleg6813 [place] [address]Dr. Slick Broderick LYMPHM # 0.59 103/ul Critically low 1.20-3.80 The [facility] Comment on above: Performed By: #### C AIDEN ####[facility] Wlxlqbcyow1203 [place], [place] [address]Bc. Slick Broderick LYMPHM% 5.0 % Critically low 20.5-60.0 The [facility] Comment on above: Performed By: #### C AIDEN ####[facility] Rfbvxsafrm6997 [place], [place] [address]Wc. Slick Broderick MCH 33.2 pg Normal 26.7-34.0 The [facility] Comment on above: Performed By: #### C AIDEN ####[facility] Sjleznudag8711 [place], [place] [address]Sb. Slick Broderick MCHC 30.8 g/dl Normal 29.9-35.2 The [facility] Comment on above: Performed By: #### C AIDEN ####[facility] Bxkdiklhcv3375 [place], [place] [address]Ui. Slick Broderick MCV 107.5 fL Critically high 81.0-99.0 The [facility] Comment on above: Result Comment: RBCS APPEAR MACROCYTIC ON PERIPHERAL SMEAR Performed By: #### C AIDEN ####[facility] Hfltarpiyq3470 [place] [phone]. Slick Broderick METAMYELOCYTE # Normal The [facility] Comment on above: Performed By: #### C AIDEN ####[facility] Jxtukwoefd2856 [place], [place] [address]Kb. Slick Broderick METAMYELOCYTE % Normal The [facility] Comment on above: Performed By: #### C AIDEN ####[facility] Usczpofsec2390 [place] [phone]. Slick Broderick MONOM# 0.71 103/ul Normal 0.30-0.80 The [facility] Comment on above: Performed By: #### C AIDEN ####[facility] Nzryugkqqh4580 [place] [phone]. Slick Broderick MONOM% 6.0 % Normal 1.7-12.0 The [facility] Comment on above: Performed By: #### C AIDEN ####[facility] Krldggycgq6072 [place] [phone]. Slick Broderick MPV 9.2 fL Critically low 9.5-13.5 The [facility] Comment on above: Performed By: #### C AIDEN ####[facility] Ezxndqndsy4228 [place] [phone]. Slick Broderick MYELOCYTE # Normal [facility] Comment on above: Performed By: #### C AIDEN ####[facility] Xpiarswccu1624 [place] [phone]. Slick Broderick MYELOCYTE % Normal The [facility] Comment on above: Performed By: #### C AIDEN ####[facility] Gqghjvrkgn7069 [place] [phone]. Slick Broderick NRBC Normal The [facility] Comment on above: Performed By: #### C AIDEN ####[facility] Alurytzdgw0641 [place] [phone]. Slick Broderick PLT 232 103/ul Normal 150-450 [facility] Comment on above: Performed By: #### C AIDEN ####[facility] Kufmyfmrfj7797 [place] [phone]. Slick Broderick RBC 1.99 106/ul Critically low 4.20-5.[address] [facility] Comment on above: Performed By: #### C AIDEN ####[facility] Dqbymaaxjg7742 [place] [phone]. Meaganwendie Davie RDW 15.6 % Critically high 11.0-15.0 The [facility] Comment on above: Performed By: #### C AIDEN ####[facility] Pnppaygrdw0954 [place] [phone]. Slick Broderick SEG # 10.15 103/ul Critically high 1.40-6.50 The [facility] Comment on above: Performed By: #### C AIDEN ####[facility] Agkqmxtpdd2064 [place] [phone]. Slick Broderick SEG % 86.0 % Critically high 43.0-75.0 The [facility] Comment on above: Performed By: #### C AIDEN ####[facility] [address]xwyn[address] [place], [place] [address]Dr. Slick Broderick WBC 11.8 103/ul Critically high 4.0-11.0 The [facility] Comment on above: Performed By: #### C BCMAN ####[facility] Kfffybfxvq0260 [place] [phone]. Slick Broderick CRPon 12-12-2021 CRP 10.1 mg/dL Critically high <=1.0 The [facility] Comment on above: Performed By: #### B ADVISOR [employer]ER, CRP, CMP ####[facility] Fzmywfaoog4460 [place] [phone]. Slick Broderick CULTURE BLOODon 12-12-2021 Microscopic examination of blood, culture Culture Observations: NO GROWTH AT 5 DAYS. Normal [facility] Comment on above: Performed By: #### B LDCX2 ####[facility] Ytdwebnjht0881 [place] [phone]. Slick Broderick Microscopic examination of blood, culture Culture Observations: NO GROWTH AT 5 DAYS. Normal [facility] Comment on above: Performed By: #### B LDCX1 ####[facility] Gxurpzgvjp7519 [place] [phone]. Slick Broderick CULTURE URINEon 12-12-2021 CULTURE URINE Culture Observations: NO GROWTH. Normal [facility] Comment on above: Performed By: #### U RCX ####[facility] Tgnrpezuex1256 [place] [phone]. Slick Broderick Covid-19 PCR (CVDTB)on SARS-CoV-2 (COVID-19) RNA DONNIE+probe Ql (Unsp spec) Not detected Normal NOT DETECTED [facility] Comment on above: Result Comment: [...] for this test is supported by the [employer] of Health and Human Service's declaration that [...] be used). Performed By: #### C VDTB ####[facility] Dawsyzztdy4808 [place] [address]Dr. Meaganwendie Broderick ER URINE PROFILEon 2 Bilirubin Ql (U) Negative Normal NEGATIVE The [facility] Comment on above: Performed By: #### U MICRO, ERUR ####[facility] Gwuarybkhj9[address] [place], [place] [address]Dr. Slick Davie Clarity (U) CLOUDY Abnormal CLEAR [facility] Comment on above: Performed By: #### U MICRO, ERUR ####[facility] Uyoguenpuf[address] [place], [place] [address]Dr. Slick Broderick Color (U) LT. YELLOW Normal YELLOW [facility] Comment on above: Performed By: #### U MICRO, ERUR ####[facility] Xnxncwtsmw2126[address] [place], [place] [address]Dr. Slick CARVAJALAHD A micrscopic examination will be performed if indicated. Normal The [facility] Comment on above: Performed By: #### U MICRO, ERUR ####[facility] Ojoshwegem[address] [place], [place] [address]Dr. Meaganwendie Davie Glucose Ql (U) Negative Normal NEGATIVE The [facility] Comment on above: Performed By: #### U MICRO, ERUR ####[facility] Ofggiqcwna3018 [place] [address]Dr. Slick Broderick Hemoglobin Ql (U) Negative Normal NEGATIVE The [facility] Comment on above: Performed By: #### U MICRO, ERUR ####[facility] Gxwnvhuihe53[address] [place], [place] [address]Dr. Slick Broderick Ketones Ql (U) Negative Normal NEGATIVE The [facility] Comment on above: Performed By: #### U MICRO, ERUR ####[facility] Hhxbhjlluj4057 [place] [address]Dr. Slick Broderick LEUKOCYTES MODERATE Abnormal NEGATIVE The [facility] Comment on above: Performed By: #### U MICRO, ERUR ####[facility] Yaiontcsri7496 [place] [address]Dr. Slick Broderick Nitrite Ql (U) Negative Normal NEGATIVE The [facility] Comment on above: Performed By: #### U MICRO, ERUR ####[facility] Rhgffiegqb7443 [place] [address]Dr. Slick Broderick pH (U) 6.0 [pH] Normal 5-9 The [facility] Comment on above: Performed By: #### U MICRO, ERUR ####[facility] Rhmzdarojn[address] [place], [place] [address]Dr. Slick Broderick SPEC GRAVITY 1.010 Normal 1.005-<=1.0 25 [facility] Comment on above: Performed By: #### U MICRO, ERUR ####[facility] Pzrohftndy[address] [place], [place] [address]Dr. Slick Broderick UA PROTEIN Negative Normal NEGATIVE/ TRACE The [facility] Comment on above: Performed By: #### U MICRO, ERUR ####[facility] Warndwckge[address] [place], [place] [address]Dr. Slick Broderick UR MICRO IND INDICATED Normal The [facility] Comment on above: Performed By: #### U MICRO, ERUR ####[facility] Duxkllcggb[address] [place], [place] [address]Dr. Slick Broderick Urobilinogen Qn (U) 0.2 {Hiren'U}/dL Normal 0.2 - 1. 0 The [facility] Comment on above: Performed By: #### U MICRO, ERUR ####[facility] Wgjsapmqwd54[address] [place], [place] [address]Dr. Slick Broderick IRON AND TIBCon 12-12-2021 % SATURATION 7.0 % Normal The [facility] Comment on above: Performed By: #### B 12FOL, FETIBC ####[facility] Eqotxwycxj20[address] [place], [place] [address]Dr. Slick Broderick Iron [Mass/Vol] 18.0 ug/dL Critically low 50.0-170.0 [facility] Comment on above: Performed By: #### B 12FOL, FETIBC ####[facility] Yjbodycsxo8832 [place] [phone]. Slick Broderick TIBC DIRECT 257.0 ug/dL Normal 250.0-450.0 [facility] Comment on above: Performed By: #### B 12FOL, FETIBC ####[facility] Cygcfnjfgi6360 [place] [phone]. Slick Broderick LACTATE/LACTIC ACIDon 2021 Lactate [Moles/Vol] 0.7 mmol/L Normal 0.4-1.9 [facility] Comment on above: Performed By: #### L ACT ####[facility] Myxvhktzfw3798 [place] [address]Dr. Slick Broderick OCC BLD IMMUNO SCREENon OCCULT BLOOD Negative Normal NEGATIVE [facility] Comment on above: Performed By: #### O BSCRN ####[facility] Qyxmwnnxgt1479 [place] [address]Dr. Slick Broderick PROF 14(COMP METB)on 022 Albumin [Mass/Vol] 2.6 g/dL Critically low 3.4-5.0 [facility] Comment on above: Performed By: #### B ADVISOR [employer]ER, CRP, CMP ####[facility] Bizquldasg0840 [place] [address]Dr. Slick Broderick Albumin/Globulin [Mass ratio] 0.7 {ratio} Normal [facility] Comment on above: Performed By: #### B ADVISOR [employer]ER, CRP, CMP ####[facility] Kemcfyaihd9855 [place] [address]Dr. Slick Broderick ALP [Catalytic activity/Vol] 105 U/L Normal 46-116 [facility] Comment on above: Performed By: #### B ADVISOR [employer] F[employer]ER, CRP, CMP ####[facility] Wxferggvex3677 [place] [address]Dr. Slick Broderick ALT [Catalytic activity/Vol] 16 U/L Normal 14-59 [facility] Comment on above: Performed By: #### B ADVISOR [employer] F[employer]ER, CRP, CMP ####[facility] Wjrwyeccpe5069 [place] [address]Dr. Slick Broderick Anion gap [Moles/Vol] 11.7 mmol/L Normal Th [facility] Comment on above: Performed By: #### B ADVISOR [employer] F[employer]ER, CRP, CMP ####[facility] Ilziepqhrq6975 [place] [address]Dr. Slick Broderick AST [Catalytic activity/Vol] 11 U/L Critically low 15-37 [facility] Comment on above: Performed By: #### B ADVISOR [employer] F[employer]ER, CRP, CMP ####[facility] Ipzoxxatpg6[address] [place], [place] [address]Dr. Slick Broderick Bilirubin [Mass/Vol] 0.3 mg/dL Normal 0.2-1.0 [facility] Comment on above: Performed By: #### B ADVISOR [employer]ER, CRP, CMP ####[facility] Kkwdixmief[address] [place], [place] [address]Dr. Slick Broderick Calcium [Mass/Vol] 7.8 mg/dL Critically low 8.5-10.1 [facility] Comment on above: Performed By: #### B ADVISOR [employer]ER, CRP, CMP ####[facility] Csmemavgjf65[address] [place], [place] [address]Dr. Slick Broderick Chloride [Moles/Vol] 105 mmol/L Normal 98-107 [facility] Comment on above: Performed By: #### B ADVISOR [employer] F[employer]ER, CRP, CMP ####[facility] Patzpdicwo[address] [place], [place] [address]Dr. Slick Broderick CO2 [Moles/Vol] 24.2 mmol/L Normal 21.0-32.0 The [facility] Comment on above: Performed By: #### B ADVISOR ADVOCATE ANGEL CO FOUNDER, CRP, CMP ####[facility] [address] [place], [place] [address]Dr. Slick Broderick Creatinine [Mass/Vol] 1.96 mg/dL Critically high 0.55-1.02 [facility] Comment on above: Performed By: #### B ADVISOR ADVOCATE ANGEL [employer] FOUNDER, CRP, CMP ####[facility] Oqywbrgvek[address] [place] [id number]. Slick Broderick EGFR-AF BURMESE 30 mL/min/1.73m2 Critically low >=60 [facility] Comment on above: Performed By: #### B ADVISOR ADVOCATE ANGEL [employer] FOUNDER, CRP, CMP ####[facility] Igghsgjyld56[address] [place] [address]Dr. Slick Broderick EGFR-NON AF BURMESE 25 mL/min/1.73m2 Critically low >=60 [facility] Comment on above: Performed By: #### B ADVISOR ADVOCATE ANGEL [employer] FOUNDER, CRP, CMP ####[facility] Wapxbognnk3677 [place] [address]Dr. Slick Broderick Globulin (S) [Mass/Vol] 3.8 g/dL Normal [facility] Comment on above: Performed By: #### B ADVISOR ADVOCATE ANGEL [employer] FOUNDER, CRP, CMP ####[facility] [address] [place], [place] [address]Dr. Slick Broderick Glucose [Mass/Vol] 91 mg/dL Normal 74-106 [facility] Comment on above: Performed By: #### B ADVISOR ADVOCATE ANGEL [employer] FOUNDER, CRP, CMP ####[facility] Uuqsqblqox16[address] [place] [address]Dr. Slick Broderick Potassium [Moles/Vol] 4.9 mmol/L Normal 3.5-5.1 [facility] Comment on above: Performed By: #### B ADVISOR ADVOCATE ANGEL [employer] FOUNDER, CRP, CMP ####[facility] I[address]ks[address] [place], [place] [address]Dr. Slick Broderick Protein [Mass/Vol] 6.4 g/dL Normal 6.4-8.2 [facility] Comment on above: Performed By: #### B ADVISOR ADVOCATE ANGEL [employer] FOUNDER, CRP, CMP ####[facility] Zcuviqeyil[address] [place] [address]Dr. Slick Broderick Sodium [Moles/Vol] 136 mmol/L Normal 136-145 [facility] Comment on above: Performed By: #### B ADVISOR ADVOCATE ANGEL [employer] FOUNDER, CRP, CMP ####[facility] Orasgbbvbh6875 [place] [address]Dr. Slick Broderick Urea nitrogen [Mass/Vol] 32.0 mg/dL Critically high 7.0-18.0 The [facility] Comment on above: Performed By: #### B ADVISOR ADVOCATE ANGEL [employer] FOUNDER, CRP, CMP ####[facility] Uxzpploveg7970 [place] [address]Dr. Slick Broderick Urea nitrogen/Creatinine [Mass ratio] 16.3 mg/mg Normal The [facility] Comment on above: Performed By: #### B ADVISOR ADVOCATE ANGEL [employer] FOUNDER, CRP, CMP ####[facility] Mgyiqwuxyg[address]44 [place] [address]Dr. Slick Broderick TYPE AND SCREENon 12-12-2021 TYPE AND SCREEN Negative Normal [facility] Comment on above: Performed By: #### T NS ####[facility] [address] [place], [place] [address]Dr. Slick Broderick URINE MICROSCOPIC ONLYon BACTERIA SMALL Abnormal NONE SEEN The [facility] Comment on above: Performed By: #### U MICRO, ERUR ####[facility] Swyw[address]fpwd[address] [place], [place] [address]Dr. Slick Broderick Bacteria identified Cx Nom (U) INDICATED Normal The [facility] Comment on above: Performed By: #### U MICRO, ERUR ####[facility] Jhoo[address] [place], [place] [address]Dr. Slick Broderick CAST NONE SEEN Normal NONE SEEN The [facility] Comment on above: Performed By: #### U MICRO, ERUR ####[facility] Qtbmenkovb9174 [place] [address]Dr. Slick Broderick Crystals LM Nom (Urine sed) NONE SEEN Normal NONE SEEN The [facility] Comment on above: Performed By: #### U MICRO, ERUR ####[facility] Mqblvbfaef9584 [place] [address]Dr. Slick Broderick Epithelial cells LM Ql (Urine sed) MANY Abnormal NONE SEEN /RARE The [facility] Comment on above: Performed By: #### U MICRO, ERUR ####[facility] Aovpqlowqy[address]5 [place] [address]Dr. Slick Broderick MUCOUS TRACE Abnormal NONE SEEN The [facility] Comment on above: Performed By: #### U MICRO, ERUR ####[facility] Cktgjqcisq1378 [place] [address]Dr. Slick Broderick RBC 0-2 Normal 0-2 [facility] Comment on above: Performed By: #### U MICRO, ERUR ####[facility] Jpyhohrfrp1874 [place] [address]Dr. Slick Broderick WBC 2-5 Abnormal NONE SEEN The [facility] Comment on above: Performed By: #### U MICRO, ERUR ####[facility] Crwugoqiso1394 [place] [address]Dr. Slick Davie VIT B12 AND FOLATEon 022 Cobalamin (Vitamin B12) [Mass/Vol] 753.0 pg/mL Normal 193.0-986.0 [facility] Comment on above: Performed By: #### B 12FOL, FETIBC ####[facility] Ixttjwkzfx4743 [place] [address]Dr. Slick Broderick FOLATE 20.20 ng/mL Normal 8.60-58.90 [facility] Comment on above: Performed By: #### B 12FOL, FETIBC ####[facility] [address] [place], [place] [address]Dr. Slick Broderick XR CHEST 1 Von 12-12-2021 XR CHEST 1 V Normal [facility] XR KNEE LT 3Von 12-12-2021 XR KNEE LT 3V Normal [facility] PROF CHEM 8 (BAS METB)on Anion gap [Moles/Vol] 11.4 mmol/L Normal [facility] Comment on above: Performed By: #### B MP ####[facility] Wergvqbsjg9464 [place] [address]Dr. Slick Broderick Calcium [Mass/Vol] 7.4 mg/dL Critically low 8.5-10.1 [facility] Comment on above: Performed By: #### B MP ####[facility] Vnqgnrydvx3366 [place] [address]Dr. Slick Broderick Chloride [Moles/Vol] 109 mmol/L Critically high 98-107 [facility] Comment on above: Performed By: #### B MP ####[facility] Xjolihjvqc0771 [place] [id number]. Slick Broderick CO2 [Moles/Vol] 26.6 mmol/L Normal 21.0-32.0 [facility] Comment on above: Performed By: #### B MP ####[facility] Naqdjgkweq[address] [place] [address]Dr. Slick Broderick Creatinine [Mass/Vol] 1.16 mg/dL Critically high 0.55-1.02 [facility] Comment on above: Performed By: #### B MP ####[facility] Lpwbdurncw7546 [place] [address]Dr. Slick Broderick EGFR-AF BURMESE 56 mL/min/1.73m2 Critically low >=60 [facility] Comment on above: Performed By: #### B MP ####[facility] Bv[address] [place], [place] [address]Dr. Meaganwendie Davie EGFR-NON AF BURMESE 46 mL/min/1.73m2 Critically low >=60 [facility] Comment on above: Performed By: #### B MP ####[facility] Otlbce[address] [place], [place] [address]Dr. Slick Broderick Glucose [Mass/Vol] 128 mg/dL Critically high 74-106 [facility] Comment on above: Performed By: #### B MP ####[facility] [address] [place], [place] [address]Dr. Slick Broderick Potassium [Moles/Vol] 5.0 mmol/L Normal 3.5-5.1 [facility] Comment on above: Performed By: #### B MP ####[facility] [address]frs[address] [place], [place] [address]Dr. Meaganwendie Broderick Sodium [Moles/Vol] 142 mmol/L Normal 136-145 [facility] Comment on above: Performed By: #### B MP ####[facility] He[address]ersfel[address] [place], [place] [address]Dr. Meaganwendie Davie Urea nitrogen [Mass/Vol] 22.0 mg/dL Critically high 7.0-18.0 [facility] Comment on above: Performed By: #### B MP ####[facility] Ls[address]qcfosr[address] [place], [place] [address]Jz. Slick Broderick Urea nitrogen/Creatinine [Mass ratio] 19.0 mg/mg Normal The [facility] Comment on above: Performed By: #### B MP ####[facility] Auvsqrafkl4734 [place], [place] [address]Gp. Slick Broderick XR TIB_FIB LT 2Von 2 XR TIB_FIB LT 2V Normal The [facility] CT CSPINE WO CONon 2 CT CSPINE WO CON Normal The [facility] CT HEAD WO CONon 11-29-2021 CT HEAD WO CON Normal The [facility] XR lumbar spine AP/LAT/FLX/E XTon 10-06-2021 XR lumbar spine AP/LAT/FLX/EXT [facility] Other XR lumbar spine AP/LAT/FLX/EXT [facility] [employer] Other XR lumbar spine AP/LAT/FLX/EXT [address] [place] [address] [employer] Other XR lumbar spine AP/LAT/FLX/[place] [address] [employer] Other XR lumbar spine AP/LAT/FLX/EXT XRay Report [employer] Other XR lumbar spine AP/LAT/FLX/EXT Signed [facility] Other XR lumbar spine AP/LAT/FLX/EXT Patient: Linda Nascimento MR#: [id number] [facility] Other XR lumbar spine AP/LAT/FLX/EXT 840 [facility] Other XR lumbar spine AP/LAT/FLX/EXT : 1950 Acct:[id number] [employer] Other XR lumbar spine AP/LAT/FLX/EXT Age/Sex: 71 / F ADM Date: 10/06/21 [facility] Other XR lumbar spine AP/LAT/FLX/EXT Loc: [facility] Room: Type: REG CLI [facility] Other XR lumbar spine AP/LAT/FLX/EXT Attending Dr: Gunnar Fernandez DO [employer] Other XR lumbar spine AP/LAT/FLX/EXT Ordering Provider: Gunnar Fernandez DO [facility] Other XR lumbar spine AP/LAT/FLX/EXT Date of Service: 10/06/21 [facility] Other XR lumbar spine AP/LAT/FLX/EXT XR/XR lumbar spine AP/LAT/FLX/EXT: Lumbar pain [employer] Other XR lumbar spine AP/LAT/FLX/EXT Copies to: Gunnar Fernandez DO [employer] Other XR lumbar spine AP/LAT/FLX/EXT Lumbar spine 10/06/2021. [facility] Other XR lumbar spine AP/LAT/FLX/EXT CLINICAL DATA: Low back pain with radiation to the buttocks. [facility] Other XR lumbar spine AP/LAT/FLX/EXT FINDINGS: 4 standing views of the lumbar spine were obtained including lateral views in the [employer] Other XR lumbar spine AP/LAT/FLX/EXT neutral, flexion, and extension positions. [facility] Other XR lumbar spine AP/LAT/FLX/EXT There is grade 2 spondylolisthesis measuring 17 mm at L4-L5. There is grade 1 spondylolisthesis [employer] Other XR lumbar spine AP/LAT/FLX/EXT measuring 8 mm at the lumbosacral junction. There is mild anterior malalignment of L3 on L4. Overall [facility] Other XR lumbar spine AP/LAT/FLX/EXT vertebral alignment does not significantly change with flexion or extension. There are disc space [employer] Other XR lumbar spine AP/LAT/FLX/EXT narrowing and facet arthritis in the lower lumbar spine. [facility] Other XR lumbar spine AP/LAT/FLX/EXT XR/XR lumbar spine AP/LAT/FLX/EXT [employer] Other XR lumbar spine AP/LAT/FLX/EXT IMPRESSION: Multilevel spondylolisthesis. No instability with flexion or extension. Disc space [facility] Other XR lumbar spine AP/LAT/FLX/EXT Impression dictated by: Marin Haines Jr., M.D.10/06/2021 4:07 PM [facility] Other XR lumbar spine AP/LAT/FLX/EXT Dictation Location: [place] [address] [employer] Other XR lumbar spine AP/LAT/FLX/EXT Transcribed By: ROLF 10/06/21 [facility] [employer] Other XR lumbar spine AP/LAT/FLX/EXT Dictated By: Marin Haines Jr, MD 10/06/21 [facility] [employer] Other XR lumbar spine AP/LAT/FLX/EXT Signed By: [employer] Other XR lumbar spine AP/LAT/FLX/EXT 10/06/21 [facility] [employer] Other BASIC METABOLIC PANELon 11-1 Calcium [Mass/Vol] 8.2 mg/dL Low 8.6-10.3 The [facility] Comment on above: Order Comment: No: D o not add to previous draw Performed By: #### 0 0071 ####[facility] [place] [address], [facility] Chloride [Moles/Vol] 106 mmol/L Normal 98-107 The [facility] Comment on above: Order Comment: No: D o not add to previous draw Performed By: #### 0 0071 ####[facility] [place] [address], [facility] CO2 [Moles/Vol] 23 mmol/L Normal 21-31 The [facility] Comment on above: Order Comment: No: D o not add to previous draw Performed By: #### 0 0071 ####[facility] [place] [address], [place] Creatinine [Mass/Vol] 0.98 mg/dL Normal 0.60-1.20 The [facility] Comment on above: Order Comment: No: D o not add to previous draw Performed By: #### 0 0071 ####[facility] [facility] [place] [address], [facility] eGFR- non- 56 ml/min/1.73sq m Abnormal >60 The [facility] Comment on above: Order Comment: No: D o not add to previous draw Result Comment: Calc ulation may not be valid for patients over 70 years Performed By: #### 0 0071 ####[facility] [place] [address], [facility] GFR/1.73 sq M.predicted among blacks MDRD (S/P/Bld) [Vol rate/Area] mL/min/{1.73_m2} Normal >60 The [facility] Comment on above: Order Comment: No: D o not add to previous draw Result Comment: Calc ulation may not be valid for patients over 70 years Performed By: #### 0 0071 ####[facility] [place] [address], [place] Glucose [Mass/Vol] 104 mg/dL High 70-100 [facility] Comment on above: Order Comment: No: D o not add to previous draw Performed By: #### 0 0071 ####[facility] [place] [address], [place] Potassium [Moles/Vol] 4.5 mmol/L Normal 3.5-5.1 The [facility] Comment on above: Order Comment: No: D o not add to previous draw Performed By: #### 0 0071 ####[facility] [place] [address], [facility] Sodium [Moles/Vol] 136 mmol/L Normal 136-145 The [facility] Comment on above: Order Comment: No: D o not add to previous draw Performed By: #### 0 0071 ####[facility] [facility] [place] [address], [facility] Urea nitrogen [Mass/Vol] 14 mg/dL Normal 7-25 The [facility] Comment on above: Order Comment: No: D o not add to previous draw Performed By: #### 0 0071 ####[facility] [facility] [place] [address], [facility] HEMATOCRITon 04-28-2021 Hematocrit (Bld) [Volume fraction] 27.6 % Low 36.0-45.0 The [facility] Comment on above: Order Comment: No: D o not add to previous draw Performed By: #### 5 [id number], [id number] #### [facility] [address] [facility] [place] [address], [facility] HEMOGLOBINon 04-28-2021 Hemoglobin (Bld) [Mass/Vol] 8.6 g/dL Low 12.0-15.0 The [facility] Comment on above: Order Comment: No: D o not add to previous draw Performed By: #### 5 7307, [address] #### [facility] [address] [facility] [place] [address], [facility] CHEST AND LATERALon 04-27-20 21 CHEST AND LATERAL [facility] Department of Radiology [address] [place] [id number] Patient Name: LINDA NASCIMENTO : 1950 Sex: F Age: Race: White Pt. Location: [address] [place] [address] Patient Status: I Ordered Date: 04/27/2021 7:00:00 [...] leads. Electronically signed: Dwight Davila. Transcribed by: [id number], User Resident: Electronically Signed by: DWIGHT DAVILA @ 04/27/2021 10:35 AM Normal The [facility] Comment on above: Order Comment: No: D o not add to previous draw BASIC METABOLIC PANELon 11-1 5-2021 Calcium [Mass/Vol] 8.7 mg/dL Normal 8.6-10.3 [facility] Comment on above: Order Comment: No: D o not add to previous draw Performed By: #### 0 0071 ####[facility] [place] [address], [facility] Chloride [Moles/Vol] 103 mmol/L Normal 98-107 The [facility] Comment on above: Order Comment: No: D o not add to previous draw Performed By: #### 0 0071 ####[facility] [place] [address], [facility] CO2 [Moles/Vol] 24 mmol/L Normal 21-31 The [facility] Comment on above: Order Comment: No: D o not add to previous draw Performed By: #### 0 0071 ####[facility] [facility] [address], [facility] Creatinine [Mass/Vol] 1.05 mg/dL Normal 0.60-1.20 The [facility] Comment on above: Order Comment: No: D o not add to previous draw Performed By: #### 0 0071 ####[facility] [place] [address], [facility] eGFR- non- 51 ml/min/1.73sq m Abnormal >60 The [facility] Comment on above: Order Comment: No: D o not add to previous draw Result Comment: Calc ulation may not be valid for patients over 70 years Performed By: #### 0 0071 ####[facility] [place] [address], [facility] GFR/1.73 sq M.predicted among blacks MDRD (S/P/Bld) [Vol rate/Area] mL/min/{1.73_m2} Normal >60 The [facility] Comment on above: Order Comment: No: D o not add to previous draw Result Comment: Calc ulation may not be valid for patients over 70 years Performed By: #### 0 0071 ####[facility] [place] [address], [facility] Glucose [Mass/Vol] 107 mg/dL High 70-100 The [facility] Comment on above: Order Comment: No: D o not add to previous draw Performed By: #### 0 0071 ####[facility] [facility] [address], [facility] Potassium [Moles/Vol] 4.6 mmol/L Normal 3.5-5.1 The [facility] Comment on above: Order Comment: No: D o not add to previous draw Performed By: #### 0 0071 ####[facility] [facility] [address], [facility] Sodium [Moles/Vol] 134 mmol/L Low 136-145 The [facility] Comment on above: Order Comment: No: D o not add to previous draw Performed By: #### 0 0071 ####[facility] [facility].[address] Urea nitrogen [Mass/Vol] 21 mg/dL Normal 7-25 The [facility] Comment on above: Order Comment: No: D o not add to previous draw Performed By: #### 0 0071 ####[facility] [facility] [address], [facility] CBC W/DIFFon 04-26-2021 ABS IMM GRANS 0.0 10*3/uL Normal 0.0-0.2 The [facility] Comment on above: Order Comment: No: D o not add to previous draw Performed By: #### 5 0103 #### [facility] [address] [place] [address], [facility] ABS NEUTROPHILS 4.8 10*3/uL Normal 1.6-7.6 The [facility] Comment on above: Order Comment: No: D o not add to previous draw Performed By: #### 5 0103 #### [facility] [address] [place] [address], [facility] Basophils (Bld) [#/Vol] 0.0 10*3/uL Normal 0.0-0.2 The [facility] Comment on above: Order Comment: No: D o not add to previous draw Performed By: #### 5 0103 #### [facility] [address] [place] [address], [facility] Basophils/100 WBC (Bld) 0.6 % Normal 0.0-1.0 T he [facility] Comment on above: Order Comment: No: D o not add to previous draw Performed By: #### 5 0103 #### [facility] [address] [place] [address], [facility] Eosinophils (Bld) [#/Vol] 0.4 10*3/uL Normal 0.0-0.5 The [facility] Comment on above: Order Comment: No: D o not add to previous draw Performed By: #### 5 0103 #### [facility] [address] [facility] [place] [address], [facility] Eosinophils/100 WBC (Bld) 6.0 % Normal 0.0-6.0 The [facility] Comment on above: Order Comment: No: D o not add to previous draw Performed By: #### 5 0103 #### [facility] [address] [facility] [place] [address], [facility] Erythrocyte distribution width (RBC) [Ratio] 13.1 % Normal 11.5-15.0 The [facility] Comment on above: Order Comment: No: D o not add to previous draw Performed By: #### 5 0103 #### [facility] [address] [place] [id number], [facility] Hematocrit (Bld) [Volume fraction] 27.8 % Low 36.0-45.0 The [facility] Comment on above: Order Comment: No: D o not add to previous draw Performed By: #### 5 0103 #### [facility] [address] [place] [address], [facility] Hemoglobin (Bld) [Mass/Vol] 9.0 g/dL Low 12.0-15.0 The [facility] Comment on above: Order Comment: No: D o not add to previous draw Performed By: #### 5 0103 #### [facility] [address] [facility] [place] [address], [facility] IMMATURE GRANS 0.3 % Normal 0.0-1.0 The [facility] Comment on above: Order Comment: No: D o not add to previous draw Performed By: #### 5 0103 #### [facility] [address] [place] [address], [facility] Lymphocytes (Bld) [#/Vol] 0.7 10*3/uL Low 1.2-4.0 The [facility] Comment on above: Order Comment: No: D o not add to previous draw Performed By: #### 5 0103 #### [facility] [address] [place] [address], [facility] Lymphocytes/100 WBC (Bld) 9.8 % Low 20.0-45.0 The [facility] Comment on above: Order Comment: No: D o not add to previous draw Performed By: #### 5 0103 #### [facility] [address] [facility] [place] [address], [facility] MCH (RBC) [Entitic mass] 33.5 pg High 27.0-33.0 The [facility] Comment on above: Order Comment: No: D o not add to previous draw Performed By: #### 5 0103 #### [facility] [address] [place] [address], [facility] MCHC (RBC) [Mass/Vol] 32.4 g/dL Normal 32.0-35.0 The [facility] Comment on above: Order Comment: No: D o not add to previous draw Performed By: #### 5 0103 #### [facility] [address] [place] [address], [facility] MCV (RBC) [Entitic vol] 103.3 fL High 82.0-98.0 T he [facility] Comment on above: Order Comment: No: D o not add to previous draw Performed By: #### 5 0103 #### [facility] [address] [place] [address], [facility] Monocytes (Bld) [#/Vol] 0.7 10*3/uL Normal 0.1-1.0 The [facility] Comment on above: Order Comment: No: D o not add to previous draw Performed By: #### 5 0103 #### [facility] [address] [facility] [place] [address], [facility] MONOS 10.4 % Normal 5.0-12.0 The [facility] Comment on above: Order Comment: No: D o not add to previous draw Performed By: #### 5 0103 #### [facility] [address] [facility] [place] [address], [facility] Neutrophils/100 WBC (Bld) 72.9 % High 40.0-72.0 The [facility] Comment on above: Order Comment: No: D o not add to previous draw Performed By: #### 5 0103 #### [facility] [address] [facility] [place] [address], [facility] Nucleated RBC/100 WBC (Bld) [Ratio] 0 % Normal 0-0 The [facility] Comment on above: Order Comment: No: D o not add to previous draw Performed By: #### 5 0103 #### [facility] [address] [facility] [address], [facility] PLAT CNT 213 10*3/uL Normal 150-400 The [facility] Comment on above: Order Comment: No: D o not add to previous draw Performed By: #### 5 0103 #### [facility] [address] [place] [address], [facility] RBC (Bld) [#/Vol] 2.69 10*6/uL Low 3.80-5.00 The [facility] Comment on above: Order Comment: No: D o not add to previous draw Performed By: #### 5 0103 #### [facility] [address] [facility] [place] [address], [facility] WBC (Bld) [#/Vol] 6.62 10*3/uL Normal 4.00-10.60 The [facility] Comment on above: Order Comment: No: D o not add to previous draw Performed By: #### 5 0103 #### [facility] [address] [facility]. [place], [place] [id number] [place] [address] Cardiovascular Lab Reporton 04-26-2021 Cardiovascular Lab Report [facility] Patient Name: [facility] L MR #: [id number] Department of Physician: Enoch Frankel MD Medicine Service Date: 04/26/2021 Division of Birthdate: 1950 Cardiology Room #: 3CD [id number] Adult [facility]ovascular Services [place] [address] Cardiovascular Laboratory Report PACEMAKER IMPLANT PROCEDURE NOTE [...] using modified seldinger technique using a 5 Arabic micro-puncture needle on two occasions and 0.35 wires were placed. Local infiltration of 1% Lidocaine was performed, and an incision was created in the left upper chest. Dissection was then performed using cautery down to the fascial plane above the muscle and a small pocket was created for the device. 6 Arabic Safesheaths were placed over the wire. An active fixation [employer] pacing lead was then delivered through the 6Fsheath to the right ventricle. After confirmation of lead position on orthogonal views (GONZALES and BURKINAN) to confirm septal position, the screw was activated, and the lead was placed in the right ventricular mid cavity towards the septum. After confirmation of good sensing parameters, injury pattern and pacing thresholds, 10V pacing was done and no diaphragmatic stimulation was noted. It was then secured in the pocket using three 1-0 Silk sutures. Then an active fixation [employer] lead was delivered through the 6Fsheath to the right atrial appendage. After confirmation of lead position on orthogonal views (GONZALES and BURKINAN), the screw was activated. RA lead was [...] Device info: Biotronik Edora Model# 8DRT Serial# [id number] RA lead: Model# Biotronik Solia S53 Serial# [id number] Sensin.9mV Threshold: 1.1V@0.5ms Impedance: 429 Ohms RV lead: Model (more content not included)... Normal [facility] BASIC METABOLIC PANELon 11- Calcium [Mass/Vol] 8.6 mg/dL Normal 8.6-10.3 [facility] Comment on above: Order Comment: No: D o not add to previous draw Performed By: #### 0 0071 ####[facility] [place] [address], [facility] Chloride [Moles/Vol] 101 mmol/L Normal 98-107 [facility] Comment on above: Order Comment: No: D o not add to previous draw Performed By: #### 0 0071 ####[facility] [place] [address], [facility] CO2 [Moles/Vol] 24 mmol/L Normal 21-31 The [facility] Comment on above: Order Comment: No: D o not add to previous draw Performed By: #### 0 0071 ####[facility] [facility] [place] [address], [facility] Creatinine [Mass/Vol] 1.36 mg/dL High 0.60-1.20 [facility] Comment on above: Order Comment: No: D o not add to previous draw Performed By: #### 0 0071 ####[facility] [facility] [place] [address], [facility] eGFR- 46 ml/min/1.73sq m Abnormal >60 [facility] Comment on above: Order Comment: No: D o not add to previous draw Result Comment: Calc ulation may not be valid for patients over 70 years Performed By: #### 0 0071 ####[place] [id number] [place] [address], [facility] eGFR- non- 39 ml/min/1.73sq m Abnormal >60 The [facility] Comment on above: Order Comment: No: D o not add to previous draw Result Comment: Calc ulation may not be valid for patients over 70 years Performed By: #### 0 0071 ####[facility] [facility] [place] [address], [facility] Glucose [Mass/Vol] 98 mg/dL Normal 70-100 The [facility] Comment on above: Order Comment: No: D o not add to previous draw Performed By: #### 0 0071 ####[facility] [facility] [place] [address], [facility] Potassium [Moles/Vol] 4.4 mmol/L Normal 3.5-5.1 [facility] Comment on above: Order Comment: No: D o not add to previous draw Performed By: #### 0 0071 ####[facility] [facility] [place] [address], [facility] Sodium [Moles/Vol] 132 mmol/L Low 136-145 The [facility] Comment on above: Order Comment: No: D o not add to previous draw Performed By: #### 0 0071 ####[facility] [place] [address], [place] Urea nitrogen [Mass/Vol] 22 mg/dL Normal 7-25 [facility] Comment on above: Order Comment: No: D o not add to previous draw Performed By: #### 0 0071 ####[facility] [place] [address], [place] HEMATOCRITon 04-25-2021 Hematocrit (Bld) [Volume fraction] 28.3 % Low 36.0-45.0 [facility] Comment on above: Order Comment: No: D o not add to previous draw Performed By: #### 5 7307, 07489 #### [facility] [address] [place] [id number], [facility] HEMOGLOBINon 04-25-2021 Hemoglobin (Bld) [Mass/Vol] 9.0 g/dL Low 12.0-15.0 [facility] Comment on above: Order Comment: No: D o not add to previous draw Performed By: #### 9 2097, 43288 #### [facility] [address] [place] [address], [facility] BASIC METABOLIC PANELon 04-12 Calcium [Mass/Vol] 8.8 mg/dL Normal 8.6-10.3 [facility] Comment on above: Order Comment: No: D o not add to previous draw Performed By: #### 1 69, 64818 ####[facility] [place] [address], [place] Chloride [Moles/Vol] 101 mmol/L Normal 98-107 [facility] Comment on above: Order Comment: No: D o not add to previous draw Performed By: #### 1 69, 05344 ####[facility] [place] [address], [place] CO2 [Moles/Vol] 26 mmol/L Normal 21-31 The [facility] Comment on above: Order Comment: No: D o not add to previous draw Performed By: #### 1 69, 07045 ####[facility] [place] [address], [facility] Creatinine [Mass/Vol] 1.17 mg/dL Normal 0.60-1.20 [facility] Comment on above: Order Comment: No: D o not add to previous draw Performed By: #### 1 69, 97612 ####[facility] [place] [address], [facility] eGFR- 55 ml/min/1.73sq m Abnormal >60 [facility] Comment on above: Order Comment: No: D o not add to previous draw Result Comment: Calc ulation may not be valid for patients over 70 years Performed By: #### 1 69, 49786 ####[facility] [place] [address], [facility] eGFR- non- 45 ml/min/1.73sq m Abnormal >60 The [facility] Comment on above: Order Comment: No: D o not add to previous draw Result Comment: Calc ulation may not be valid for patients over 70 years Performed By: #### 1 69, 50590 ####[facility] [place] [address], [facility] Glucose [Mass/Vol] 102 mg/dL High 70-100 [facility] Comment on above: Order Comment: No: D o not add to previous draw Performed By: #### 1 69, 43659 ####[facility] [place] [address], [facility] Potassium [Moles/Vol] 4.5 mmol/L Normal 3.5-5.1 [facility] Comment on above: Order Comment: No: D o not add to previous draw Performed By: #### 1 69, 45563 ####[facility] [place] [address], [facility] Sodium [Moles/Vol] 133 mmol/L Low 136-145 [facility] Comment on above: Order Comment: No: D o not add to previous draw Performed By: #### 1 0070, 98443 ####[facility] [facility] [place] [address], [facility] Urea nitrogen [Mass/Vol] 20 mg/dL Normal 7-25 [facility] Comment on above: Order Comment: No: D o not add to previous draw Performed By: #### 1 0, 06509 ####[facility] [facility] [place] [address], [facility] HEMOGLOBINon 04-24-2021 Hemoglobin (Bld) [Mass/Vol] 10.0 g/dL Low 12.0-15.0 [facility] Comment on above: Order Comment: Yes: Add to Previous draw if able NEEDS DRAWN. NO LAV TUBE FROM AM LABS Performed By: #### 9 2089 #### [facility] [address] [facility] [place] [address], [facility] MAGNESIUM BLOODon 04-24-2021 Magnesium [Mass/Vol] 2.1 mg/dL Normal 1.9-2.7 [facility] Comment on above: Order Comment: No: D o not add to previous draw Performed By: #### 1 0, 30552 ####[facility] [facility] [place] [address], [facility] BASIC METABOLIC PANELon 04-12 Calcium [Mass/Vol] 8.4 mg/dL Low 8.6-10.3 [facility] Comment on above: Order Comment: Unkno wn Performed By: #### 1 0070, 16384, 98907 ####[facility] [place] [address], [facility] Chloride [Moles/Vol] 100 mmol/L Normal 98-107 [facility] Comment on above: Order Comment: Unkno wn Performed By: #### 1 0070, 76912, 91946 ####[facility] [place] [address], [facility] CO2 [Moles/Vol] 25 mmol/L Normal 21-31 The [facility] Comment on above: Order Comment: Unkno wn Performed By: #### 1 0070, 82485, 34716 ####[facility] [place] [address], [facility] Creatinine [Mass/Vol] 1.30 mg/dL High 0.60-1.20 [facility] Comment on above: Order Comment: Unkno wn Performed By: #### 1 0, 68624, 48614 ####[facility] [place] [address], [facility] eGFR- 49 ml/min/1.73sq m Abnormal >60 [facility] Comment on above: Order Comment: Unkno wn Result Comment: Calc ulation may not be valid for patients over 70 years Performed By: #### 1 0, 22765, 47940 ####[facility] [facility] [place] [address], [facility] eGFR- non- 40 ml/min/1.73sq m Abnormal >60 The [facility] Comment on above: Order Comment: Unkno wn Result Comment: Calc ulation may not be valid for patients over 70 years Performed By: #### 1 0070, 94236, 77358 ####[facility] [place] [address], [place] Glucose [Mass/Vol] 93 mg/dL Normal 70-100 [facility] Comment on above: Order Comment: Unkno wn Performed By: #### 1 0070, 38094, 20038 ####[facility] [place] [address], [place] Potassium [Moles/Vol] 4.1 mmol/L Normal 3.5-5.1 [facility] Comment on above: Order Comment: Unkno wn Performed By: #### 1 0, 42153, 85208 ####[facility] [facility] [address], [facility] Sodium [Moles/Vol] 133 mmol/L Low 136-145 [facility] Comment on above: Order Comment: Unkno wn Performed By: #### 1 0, 62781, 50266 ####[facility] [place] [address], [facility] Urea nitrogen [Mass/Vol] 20 mg/dL Normal 7-25 [facility] Comment on above: Order Comment: Unkno wn Performed By: #### 1 0, 98961, 74476 ####[facility] [place] [address], [facility] CBC W/DIFFon 04-23-2021 ABS IMM GRANS 0.1 10*3/uL Normal 0.0-0.2 The [facility] Comment on above: Order Comment: Unkno wn Performed By: #### 5 0103 #### [facility] [address] [facility] [place] [address], [facility] ABS NEUTROPHILS 7.8 10*3/uL High 1.6-7.6 The [facility] Comment on above: Order Comment: Unkno wn Performed By: #### 5 0103 #### [facility] [address] [facility] [place] [address], [facility] Basophils (Bld) [#/Vol] 0.1 10*3/uL Normal 0.0-0.2 [facility] Comment on above: Order Comment: Unkno wn Performed By: #### 5 3 #### [facility] [address] [facility] [place] [address], [facility] Basophils/100 WBC (Bld) 0.5 % Normal 0.0-1.[address] [facility] Comment on above: Order Comment: Unkno wn Performed By: #### 5 0103 #### [facility] [address] [place] [address], [facility] Eosinophils (Bld) [#/Vol] 0.4 10*3/uL Normal 0.0-0.5 [facility] Comment on above: Order Comment: Unkno wn Performed By: #### 5 0103 #### [facility] [address] [place] [address], [facility] Eosinophils/100 WBC (Bld) 3.5 % Normal 0.0-6.0 [facility] Comment on above: Order Comment: Unkno wn Performed By: #### 5 0103 #### [facility] [address] [place] [address], [facility] Erythrocyte distribution width (RBC) [Ratio] 13.2 % Normal 11.5-15.0 [facility] Comment on above: Order Comment: Unkno wn Performed By: #### 5 0103 #### [facility] [address] [place] [address], [facility] Hematocrit (Bld) [Volume fraction] 29.2 % Low 36.0-45.0 [facility] Comment on above: Order Comment: Unkno wn Performed By: #### 5 0103 #### [facility] [address] [place] [address], [facility] Hemoglobin (Bld) [Mass/Vol] 9.3 g/dL Low 12.0-15.0 [facility] Comment on above: Order Comment: Unkno wn Performed By: #### 5 0103 #### [facility] [address] [place] [address], [facility] IMMATURE GRANS 0.6 % Normal 0.0-1.0 The [facility] Comment on above: Order Comment: Unkno wn Performed By: #### 5 3 #### [facility] [address] Lymphocytes (Bld) [#/Vol] 0.7 10*3/uL Low 1.2-4.0 [facility] Comment on above: Order Comment: Unkno wn Performed By: #### 5 0103 #### [facility] [address] [facility] [place] [address], [facility] Lymphocytes/100 WBC (Bld) 6.8 % Low 20.0-45.0 [facility] Comment on above: Order Comment: Unkno wn Performed By: #### 5 0103 #### [facility] [address] [facility] [place] [address], [facility] MCH (RBC) [Entitic mass] 33.5 pg High 27.0-33.0 [facility] Comment on above: Order Comment: Unkno wn Performed By: #### 5 3 #### [facility] [address] [facility] [place] [address], [facility] MCHC (RBC) [Mass/Vol] 31.8 g/dL Low 32.0-35.0 [facility] Comment on above: Order Comment: Unkno wn Performed By: #### 5 3 #### [facility] [address] [facility] [place] [address], [facility] MCV (RBC) [Entitic vol] 105.0 fL High 82.0-98.0 T he [facility] Comment on above: Order Comment: Unkno wn Performed By: #### 5 0103 #### [facility] [address] [facility] [place] [address], [facility] Monocytes (Bld) [#/Vol] 1.0 10*3/uL Normal 0.1-1.0 [facility] Comment on above: Order Comment: Unkno wn Performed By: #### 5 3 #### [facility] [address] [facility] [place] [address], [facility] MONOS 10.0 % Normal 5.0-12.0 [facility] Comment on above: Order Comment: Unkno wn Performed By: #### 5 0103 #### [facility] [address] [place] [address], [facility] Neutrophils/100 WBC (Bld) 78.6 % High 40.0-72.0 [facility] Comment on above: Order Comment: Unkno wn Performed By: #### 5 0103 #### [facility] [address] [facility] [place] [address], [facility] Nucleated RBC/100 WBC (Bld) [Ratio] 0 % Normal 0-0 [facility] Comment on above: Order Comment: Unkno wn Performed By: #### 5 0103 #### [facility] [address] [facility] [place] [address], [facility] PLAT CNT 227 10*3/uL Normal 150-400 [facility] Comment on above: Order Comment: Unkno wn Performed By: #### 5 0103 #### [facility] [address] [facility] [place] [address], [facility] RBC (Bld) [#/Vol] 2.78 10*6/uL Low 3.80-5.00 The [facility] Comment on above: Order Comment: Unkno wn Performed By: #### 5 3 #### [facility] [address] [facility] [place] [address], [facility] WBC (Bld) [#/Vol] 9.87 10*3/uL Normal 4.00-10.60 [facility] Comment on above: Order Comment: Unkno wn Performed By: #### 5 3 #### [facility] [address] [facility] [place] [address], [facility] MAGNESIUM BLOODon 04-23-2021 Magnesium [Mass/Vol] 2.1 mg/dL Normal 1.9-2.7 [facility] Comment on above: Order Comment: Unkno wn Performed By: #### 1 0070, 84282, 16773 ####[facility] [facility] [place] [address], [facility] PHOSPHORUS BLOODon Phosphate [Mass/Vol] 2.8 mg/dL Normal 2.5-5.0 [facility] Comment on above: Order Comment: Unkno wn Performed By: #### 1 0070, 24468, 77964 ####[facility] [facility] [place] [address], [facility] APTTon 04-22-2021 aPTT Coag (Bld) [Time] 27.6 s Normal 25.0-35.0 Th e [facility] Comment on above: Order Comment: No: [...] THIS PURPOSE. Performed By: #### 5 7307, 24254 #### [facility] [address] [facility] [place] [address], [facility] BASIC METABOLIC PANELon 04-12 Calcium [Mass/Vol] 8.8 mg/dL Normal 8.6-10.3 [facility] Comment on above: Order Comment: No: D o not add to previous draw Performed By: #### 4 1000, 66506, 21445, 64790 ####[facility] [facility] [place] [address], [facility] Chloride [Moles/Vol] 99 mmol/L Normal 98-107 [facility] Comment on above: Order Comment: No: D o not add to previous draw Performed By: #### 4 1000, 13945, 34335, 06084 ####[facility] [place] [address], [facility] CO2 [Moles/Vol] 27 mmol/L Normal 21-31 The [facility] Comment on above: Order Comment: No: D o not add to previous draw Performed By: #### 4 1000, 26462, 00812, 52039 ####[facility] [facility] [address], [facility] Creatinine [Mass/Vol] 1.39 mg/dL High 0.60-1.20 [facility] Comment on above: Order Comment: No: D o not add to previous draw Performed By: #### 4 1000, 27424, 66423, 26089 ####[facility] [facility] eGFR- 45 ml/min/1.73sq m Abnormal >60 [facility] Comment on above: Order Comment: No: D o not add to previous draw Result Comment: Calc ulation may not be valid for patients over 70 years Performed By: #### 4 1000, 13086, 43310, 40491 ####[facility] [facility].[address] eGFR- non- 37 ml/min/1.73sq m Abnormal >60 [facility] Comment on above: Order Comment: No: D o not add to previous draw Result Comment: Calc ulation may not be valid for patients over 70 years Performed By: #### 4 1000, 98042, 87543, 72037 ####[facility] [facility] [address], [facility] Glucose [Mass/Vol] 91 mg/dL Normal 70-100 [facility] Comment on above: Order Comment: No: D o not add to previous draw Performed By: #### 4 1000, 76984, 83974, 31637 ####[facility] [facility] [address], [facility] Potassium [Moles/Vol] 4.4 mmol/L Normal 3.5-5.1 [facility] Comment on above: Order Comment: No: D o not add to previous draw Performed By: #### 4 1000, 82700, 03075, 26515 ####[facility] [facility].[address] Sodium [Moles/Vol] 133 mmol/L Low 136-145 [facility] Comment on above: Order Comment: No: D o not add to previous draw Performed By: #### 4 1000, 39602, 61101, 19056 ####[facility] [facility].[address] Urea nitrogen [Mass/Vol] 24 mg/dL Normal 7-25 [facility] Comment on above: Order Comment: No: D o not add to previous draw Performed By: #### 4 1000, 25729, 70441, 96262 ####[facility] CBC W/DIFFon 04-22-2021 ABS IMM GRANS 0.0 10*3/uL Normal 0.0-0.2 [facility] Comment on above: Performed By: #### 5 0103 #### [facility] [address] [facility] ABS NEUTROPHILS 5.8 10*3/uL Normal 1.6-7.6 [facility] Comment on above: Performed By: #### 5 0103 #### [facility] [address] [facility] [place] [address], [facility] Basophils (Bld) [#/Vol] 0.1 10*3/uL Normal 0.0-0.2 [facility] Comment on above: Performed By: #### 5 0103 #### [facility] [address] [facility] [place] [address], [facility] Basophils/100 WBC (Bld) 0.6 % Normal 0.0-1.0 T he [facility] Comment on above: Performed By: #### 5 0103 #### [facility] [address] [facility] Eosinophils (Bld) [#/Vol] 0.2 10*3/uL Normal 0.0-0.5 [facility] Comment on above: Performed By: #### 5 0103 #### [facility] [address] [place] [address], [facility] Eosinophils/100 WBC (Bld) 2.7 % Normal 0.0-6.0 [facility] Comment on above: Performed By: #### 5 0103 #### [facility] [address] Erythrocyte distribution width (RBC) [Ratio] 13.0 % Normal 11.5-15.0 [facility] Comment on above: Performed By: #### 5 0103 #### [facility] [address] [facility] [address] [facility] Hematocrit (Bld) [Volume fraction] 29.2 % Low 36.0-45.0 [facility] Comment on above: Performed By: #### 5 0103 #### [facility] [address] [facility] [address] [facility] Hemoglobin (Bld) [Mass/Vol] 9.6 g/dL Low 12.0-15.0 [facility] Comment on above: Performed By: #### 5 0103 #### [facility] [address] [facility] [place] [address], [facility] IMMATURE GRANS 0.5 % Normal 0.0-1.0 [facility] Comment on above: Performed By: #### 5 0103 #### [facility] [address] [facility] [place] [address], [facility] Lymphocytes (Bld) [#/Vol] 1.1 10*3/uL Low 1.2-4.0 [facility] Comment on above: Performed By: #### 5 0103 #### [facility] [address] [facility] [address] Lymphocytes/100 WBC (Bld) 13.4 % Low 20.0-45.0 [facility] Comment on above: Performed By: #### 5 0103 #### [facility] [address] [facility] [place] [address], [facility] MCH (RBC) [Entitic mass] 33.1 pg High 27.0-33.0 [facility] Comment on above: Performed By: #### 5 0103 #### [facility] [address] [facility] MCHC (RBC) [Mass/Vol] 32.9 g/dL Normal 32.0-35.0 [facility] Comment on above: Performed By: #### 5 0103 #### [facility] [address] [facility] [place] [address], [facility] MCV (RBC) [Entitic vol] 100.7 fL High 82.0-98.0 [facility] Comment on above: Performed By: #### 5 0103 #### [facility] [address] [facility] [place] [address], [facility] Monocytes (Bld) [#/Vol] 0.7 10*3/uL Normal 0.1-1.0 [facility] Comment on above: Performed By: #### 5 0103 #### [facility] [address] [facility]. [address] MONOS 9.1 % Normal 5.0-12.0 [facility] Comment on above: Performed By: #### 5 0103 #### [facility] [address] [facility] [place] [address], [facility] Neutrophils/100 WBC (Bld) 73.7 % High 40.0-72.0 [facility] Comment on above: Performed By: #### 5 3 #### [facility] [address] [facility] [place] [address], [facility] Nucleated RBC/100 WBC (Bld) [Ratio] 0 % Normal 0-0 [facility] Comment on above: Performed By: #### 5 0103 #### [facility] [address] [place] [address], [facility] PLAT CNT 234 10*3/uL Normal 150-400 [facility] Comment on above: Performed By: #### 5 0103 #### [facility] [address] [facility] [place] [address], [facility] RBC (Bld) [#/Vol] 2.90 10*6/uL Low 3.80-5.00 [facility] Comment on above: Performed By: #### 5 0103 #### [facility] [address] [facility] [place] [address], [facility] WBC (Bld) [#/Vol] 7.81 10*3/uL Normal 4.00-10.60 [facility] Comment on above: Performed By: #### 5 0103 #### [facility] [address] [place] [address], [facility] FERRITINon 04-22-2021 Ferritin [Mass/Vol] 74 ng/mL Normal 11-307 [facility] Comment on above: Order Comment: No: D o not add to previous draw Performed By: #### 8 4044, 98217, 52334, 94818, 47753, 92723 ####[facility] [address] FOLATE SERUMon 04-22-2021 SERUM FOLATE 29.00 ng/mL Normal 6.60-1000.0 0 [facility] Comment on above: Order Comment: No: D o not add to previous draw Result Comment: Norm al range reflects World Health Organization International Standard Performed By: #### 8 4044, 86425, 52054, 07804, 90843, 21606 ####[facility] [address] HAPTOGLOBINon 04-22-2021 HAPTOGLOBIN 302 mg/dL High 26-164 [facility] Comment on above: Order Comment: No: D o not add to previous draw Performed By: #### 3 0103 #### [address] [place] [address], [facility] KNEE LEFT 1 OR 2 VWSon 04-22 KNEE LEFT 1 OR 2 VWS [facility] Department of Radiology [address] [place] [address] [place] [address] Patient Name: LINDA NASCIMENTO : 1950 Sex: F Age: Race: White Pt. Location: [id number] Patient Status: I Ordered Date: 04/22/2021 2:30:00 [...] report. Electronically signed: Boris Jara. Transcribed by: [email or web address], User Resident: NITHIN GARAY Electronically Signed by: BORIS JARA @ 04/22/2021 03:09 AM I personally read this/these film(s) with this resident Normal [facility] Comment on above: Order Comment: No: D o not add to previous draw KNEE RIGHT 1 OR 2 [facility] 04-12 KNEE RIGHT [address] [facility] Department of Radiology [address] [place] [id number] Patient Name: LINDA NASCIMENTO : 1950 Sex: F Age: Race: White Pt. Location: [id number] Patient Status: I Ordered Date: 04/22/2021 2:30:00 AM Completed Date: 04/22/2021 02:52 AM Requesting Provider: GUNNAR CHRISTIANSON Attending Provider: ROBERTA VELA Report Copy To: Signs & Symptoms: Pain ( specify Location) History: See Comments Comments: evaluate for FX Exam: KNEE RIGHT 1 OR 2 [facility] KNEE RIGHT 1 OR 2 VWS 04/22/2021 [...] report. Electronically signed: Boris Jara. Transcribed by: [email or web address], User Resident: NITHIN GARAY Electronically Signed by: BORIS JARA @ 04/22/2021 03:09 AM I personally read this/these film(s) with this resident Normal [facility] Comment on above: Order Comment: No: D o not add to previous draw LDH BLOODon 04-22-2021 LDH 232 Units/L Normal 140-271 [facility] Comment on above: Order Comment: No: D o not add to previous draw Performed By: #### 8 4044, 74437, 51165, 89431, 33955, 68833 ####[facility] [address] LIVER BATTERYon 04-22-2021 Albumin [Mass/Vol] 3.9 g/dL Normal 3.5-5.7 [facility] Comment on above: Order Comment: No: D o not add to previous draw Performed By: #### 5 7307, 19972 #### [facility] [address] [place] [address], [facility] ALKALINE PHOSPH 74 IU/L Normal 34-104 [facility] Comment on above: Order Comment: No: D o not add to previous draw Performed By: #### 5 7307, 69632 #### [facility] [address] [place] [address], [place] ALT [Catalytic activity/Vol] 9 U/L Normal 7-52 [facility] Comment on above: Order Comment: No: D o not add to previous draw Performed By: #### 5 7307, 18957 #### [facility] [address] [place] [address], [place] AST [Catalytic activity/Vol] 19 U/L Normal 13-39 [facility] Comment on above: Order Comment: No: D o not add to previous draw Performed By: #### 5 7307, 00716 #### [facility] [address] [place] [address], [place] Bilirubin [Mass/Vol] 0.5 mg/dL Normal 0.3-1.0 [facility] Comment on above: Order Comment: No: D o not add to previous draw Performed By: #### 5 7307, 36668 #### [facility] [address] [place] [address], [place] Bilirubin.direct [Mass/Vol] 0.1 mg/dL Normal 0.0-0.2 [facility] Comment on above: Order Comment: No: D o not add to previous draw Performed By: #### 5 7307, 06050 #### [facility] [address] [place] [address], [place] Protein [Mass/Vol] 6.5 g/dL Normal 6.0-8.3 [facility] Comment on above: Order Comment: No: D o not add to previous draw Performed By: #### 5 7307, 68352 #### [facility] [address] [place] [address], [place] MAGNESIUM BLOODon 04-22-2021 Magnesium [Mass/Vol] 2.0 mg/dL Normal 1.9-2.7 [facility] Comment on above: Order Comment: No: D o not add to previous draw Performed By: #### 4 1000, 50094, 52851, 76012 ####[facility] [place] [address], [facility] PERIPHERAL SMEARon 1 Nucleated RBC/100 WBC (Bld) [Ratio] 0 % Normal 0-0 [facility] Comment on above: Order Comment: No: D o not add to previous draw Performed By: #### 5 7307, 51074 #### [facility] [address] [place] [address], [facility] OTHER PS1 Macrocytic anemia with no significant RBC morphology. Normal [facility] Comment on above: Order Comment: No: D o not add to previous draw Performed By: #### 5 73, 01019 #### [facility] [address] [place] [address], [facility] OTHER PS2 Check serum B12 and folate. Normal [facility] Comment on above: Order Comment: No: D o not add to previous draw Performed By: #### 5 73, 58619 #### [facility] [address] [place] [address], [facility] OTHER PS3 Otherwise unremarkable leukocytes and platelets. Normal [facility] Comment on above: Order Comment: No: D o not add to previous draw Performed By: #### 5 7307, 93872 #### [facility] [address] [place] [address], [facility] OTHER PS4 Normal [facility] Comment on above: Order Comment: No: D o not add to previous draw Result Comment: Chec ked by Mayra Encinas M.D. Performed By: #### 5 7307, 65227 #### [facility] [address] [place] [address], [facility] PHOSPHORUS BLOODon 1 Phosphate [Mass/Vol] 3.4 mg/dL Normal 2.5-5.0 [facility] Comment on above: Order Comment: No: D o not add to previous draw Performed By: #### 5 7307, 62360 #### [facility] [address] PROTHROMBIN TIMEon 1 INR Coag (PPP) [Relative time] 1.01 {INR} Normal 0.91-1.16 [facility] Comment on above: Order Comment: No: [...] CHEST 1995;[id number]. Performed By: #### 5 7307, 20791 #### [facility] [address] [facility] PT Coag (PPP) [Time] 13.3 s Normal 12.3-14.8 [facility] Comment on above: Order Comment: No: D o not add to previous draw Result Comment: ALL RESULTS MUST BE INTERPRETED WITH RESPECT TO BLOOD DRAWING ARTIFACT OR DILUTION ERROR OF ANTICOAGULANT AT THE TIME OF SAMPLING. Performed By: #### 5 7307, 24298 #### [facility] [address] RETICULOCYTE PANELon 021 ABSOLUTE RETICULOCYTE 0.0711 10*6/uL Normal 0.02 50-0.10 00 [facility] Comment on above: Order Comment: No: D o not add to previous draw Performed By: #### 5 7307, 04364 #### [facility] [address] [place] [address], [facility] IMMATURE RETICULOCYTE FRACTION 12.8 % Normal 2.0-16.0 [facility] Comment on above: Order Comment: No: D o not add to previous draw Performed By: #### 5 7307, 66686 #### [facility] [address] [place] [address], [facility] RETIC COUNT 2.37 % High 0.50-1.80 [facility] Comment on above: Order Comment: No: D o not add to previous draw Performed By: #### 5 7307, 92296 #### [facility] [address] [place] [address], [facility] RETICULOCYTE HEMOGLOBIN 37.5 pg High 28.0-36.[address] [facility] Comment on above: Order Comment: No: D o not add to previous draw Performed By: #### 5 7307, 08998 #### [facility] [address] [place] [address], [facility] TIBC- INCLUDES IRONon 2020 FE SATURATION 16 % Low 20-50 [facility] Comment on above: Order Comment: No: D o not add to previous draw Performed By: #### 8 4044, 35995, 41235, 66123, 00857, 89556 ####[facility] [place] [address], [facility] Iron [Mass/Vol] 54 ug/dL Normal 50-212 The [facility] Comment on above: Order Comment: No: D o not add to previous draw Performed By: #### 8 4044, 66573, 84798, 00294, 86744, 24587 ####[facility] [place] [address], [facility] TIBC 332 mcg/dL Normal 250-450 [facility] Comment on above: Order Comment: No: D o not add to previous draw Performed By: #### 8 4044, 05375, 42108, 43988, 49885, 75369 ####[facility] UIBC 278 mcg/dL Normal 155-355 [facility] Comment on above: Order Comment: No: D o not add to previous draw Performed By: #### 8 4044, 89484, 27426, 89785, 60310, 15459 ####[facility] TSH3 WITH REFLEX FT4on 04-22 TSH 3RD GENERATION 1.72 uIU/mL Normal 0.34-5.60 [facility] Comment on above: Performed By: #### 8 4044, 61631, 87771, 13838, 72088, 65828 ####[facility] VITAMIN B12on 04-22-2021 Cobalamin (Vitamin B12) [Mass/Vol] 771 pg/mL Normal 180-914 [facility] Comment on above: Order Comment: No: D o not add to previous drawPt using restroom Result Comment: REFE RENCE RANGES: 180-914 pg/mL Normal 145-179 pg/mL Indeterminate <145 pg/mL Deficient Performed By: #### 8 4044, 10381, 01208, 23407, 76483, 64838 ####[facility] Vital Signs Date Time Vital Sign Value Performing Clinician Facility 02-05-2025 12:36-0400 Body height 165.[address] Mehta MD Work Phone: [facility] 02-05-2025 12:36-0400 Body mass index (BMI) [Ratio] 40.7 kg/m2 Ave Mehta MD Work Phone: [facility] 02-05-2025 12:36-0400 Body weight 111.[address] Mehta MD Work Phone: [facility] 02-05-2025 12:36-0400 Diastolic blood pressure 78 mm[Hg] Ave Mehta MD Work Phone: [facility] 02-05-2025 12:36-0400 Heart rate 76 /min Ave Mehta MD Work Phone: [facility] 02-05-2025 12:36-0400 Systolic blood pressure 126 mm[Hg] Ave Mehta MD Work Phone: [facility] 10-06-2021 14:00-0400 Body height 165.1 cm Gunnar Fernandez Other [employer] [facility] [employer] Other 10-06-2021 14:00-0400 Body mass index (BMI) [Ratio] 40.77 kg/m2 Gunnar Fernandez Other [employer] Other 10-06-2021 14:00-0400 Body weight 111.13 kg Gunnar Rebecca Other [employer] Other Encounters Encounter Date Encounter Type Care Provider Facility Start: 02-09-2025 End: 02-09-2025 Patient encounter procedure Leonie Weaver MD -[facility] Work Phone: Start: 02-09-2025 End: 02-09-[address] Mehta MD Work Phone: [facility] Work Phone: Start: 02-05-2025 End: 02-05-[address] Mehta MD Work Phone: [facility] Work Phone: Start: 02-05-2025 End: 02-05-2025 Patient encounter procedure Kristen White DO -[facility] [place] Work Phone: Start: 01-13-2025 End: 01-15-2025 Evaluation and management of inpatient Jarrod Mahajan Facility:[facility] Start: 01-13-2025 Emergency department patient visit Facility:[facility] Start: 01-06-2025 ambulatory [facility] Start: 12-31-2024 End: 12-31-2024 ambulatory [facility] Start: 10-21-2024 ambulatory [facility] Start: 10-04-2024 ambulatory [facility] Start: 07-31-2024 End: 07-31-[address] Mehta MD Work Phone: [facility] Work Phone: Start: 07-31-2024 End: 07-31-[address] Mehta MD Work Phone: [facility] Work Phone: Start: 05-21-2024 End: 05-21-2024 ambulatory [facility] Start: 03-20-2023 End: 03-21-2023 ambulatory Ирина Gibson MD Facility: [facility] Start: 01-23-2023 End: 01-24-2023 ambulatory Ирина Gibson MD Facility: [facility] Start: 01-09-2023 End: 01-10-2023 ambulatory Ирина Gibson MD Facility: [facility] Start: 12-12-2022 End: 12-13-2022 ambulatory Ирина Gibson MD Facility:[facility] Start: 10-25-2022 ambulatory LEÓN Ruiz lity:[facility]1 Start: 10-14-2022 End: 10-14-2022 ambulatory LEONIE WEAVER Facility:[facility]1 Start: 09-23-2022 End: 09-24-2022 ambulatory LEÓN DIAS Facility:[facility]1 Start: 09-14-2022 End: 09-15-[address] MEHTA . Facility:[facility]1 Start: 09-02-2022 End: 09-03-2022 ambulatory LEÓN Tejada [facility] Facility:H1 Start: 08-08-2022 End: 08-09-[address] AEV MEHTA . Facility:[facility]1 Start: 07-18-2022 End: 07-19-2022 ambulatory LEÓN Tejada [facility] Facility:H1 Start: 06-30-2022 End: 07-01-[address] [...] Facility:H1 Start: 04-08-2022 End: 04-09-2022 ambulatory LEÓN Mallory [facility] Facility:H1 Start: 03-30-2022 End: 03-30-2022 ambulatory Rancho Chamorro Other [employer] Other Start: 03-30-2022 Telephone encounter [facility] [place] Start: 03-28-2022 End: 03-29-[address] MEHTA . Facility:[facility]1 Start: 03-27-[address] MEHTA . Facili ty:H1 Start: 03-24-2022 Office outpatient vi sit 25 minutes Rancho Chamorro [facility] [place] Start: 03-24-2022 End: 04-03-2022 ambulatory UNKNOWN PROVIDER [employer] Other Start: 03-16-2022 End: 03-16-2022 ambulatory Rancho Chamorro Other [employer] Other Start: 03-16-2022 Telephone encounter [facility] B[facility] Start: 03-11-2022 End: 03-12-2022 ambulatory LEÓN Tejada [facility] Facility:H1 Start: 02-18-2022 End: 02-19-2022 ambulatory [facility] Facility:[facility] Start: 02-11-2022 End: 02-12-[address] MEHTA . Facility:H1 Start: 01-28-2022 End: 01-29-2022 ambulatory LEÓN Tejada [facility] Facility:H1 Start: 01-11-2022 End: 01-12-[address] MEHTA . Facility:H1 Start: 01-04-2022 End: 01-05-2022 ambulatory LEÓN Tejada [facility] Facility:H1 Start: 12-23-2021 End: 12-23-2021 ambulatory Rancho Cahmorro Other [employer] Other Start: 12-23-2021 Office outpatient vi sit 25 minutes Rancho Chamorro [facility] [place] Start: 12-20-2021 End: 12-21-2021 ambulatory LEÓN Tejada [facility] Facility:H1 Start: 12-13-2021 End: 12-14-2021 Evaluation and management of inpatient DR AVE MEHTA . Facility:H1 Start: 12-07-2021 Encounter for preprocedural cardiovascular examination [facility] Start: 12-06-2021 End: 12-06-2021 ambulatory LEÓN Tejada [facility] Facility:H1 Start: 12-05-2021 End: 12-05-[address] MEHTA . Facility:H1 Start: 12-02-2021 End: 12-03-2021 ambulatory [facility] Mallory [facility] Facility:H1 Start: 12-02-2021 End: 12-03-2021 Encounter for preprocedural cardiovascular examination [facility] Facility:H1 Start: 11-30-2021 End: 12-01-2021 ambulatory [facility] Facility:H1 Start: 11-29-2021 End: 11-29-2021 ambulatory MIRNA PARSONS . Facility:H1 Start: 11-17-2021 End: 11-17-2021 ambulatory Rancho Chamorro Other [employer] Other Start: 11-17-2021 Office outpatient vi sit 15 minutes Emilie Perez [facility] Start: 11-17-2021 Telephone encounter [facility] [place] Start: 11-04-2021 End: 11-04-2021 ambulatory Rancho Chamorro Other [employer] Other Start: 11-04-2021 Telephone encounter Rancho BAKER G [facility] Start: 11-03-2021 (Procedure) Short [facility] Ch[facility] Start: 11-03-2021 End: 11-03-2021 ambulatory Rancho Chamorro Other [employer] Other Start: 11-03-2021 Office outpatient vi sit 25 minutes Emilie Perez [facility] Start: 10-28-2021 End: 10-28-2021 ambulatory Rancho Chamorro Other [employer] Other Start: 10-28-2021 Office outpatient vi sit 25 minutes [facility] [place] Start: 10-07-2021 End: 10-07-2021 ambulatory Gunnar Fernandez Other [employer] Other Start: 10-07-2021 Telephone encounter Gunnar BAKER G [facility] Start: 10-06-2021 End: 10-06-2021 ambulatory Gunnar Fernandez Other [employer] Other Start: 10-06-2021 Office outpatient vi sit 15 minutes Gunnar Fernandez [facility] Start: 09-08-2021 End: 09-08-2021 ambulatory Gunnar Fernandez Other [employer] Other Start: 09-08-2021 Office outpatient vi sit 15 minutes Gunnar Fernandez [facility] Start: 04-22-2021 End: 04-29-2021 Evaluation and management of inpatient ROBERTA DANE Facility:[facility] Procedures Date Procedure Procedure Detail Performing Clinician Start: 12-12-2021 Transfusion of Nonau tologous Red Blood Cells into Peripheral Vein, Percutaneous Approach DR AVE MEHTA . Plan of Treatment Date Care Activity Detail Author Start: 02-09-2025 Urine culture [facility] Start: 02-09-2025 Bacteria identified in Urine by Culture Urine Culture [facility] Start: 07-31-2024 Aldolase measurement [facility] Start: 07-31-2024 Hemolytic complement CH50 level [facility] Start: 07-31-2024 Hepatitis B core ant ibody measurement [facility] Start: 07-31-2024 [facility] Angiotensin converti ng enzyme [Enzymatic activity/volume] in Serum or Plasma [facility] Chromatin Ab [Units/ volume] in Serum or Plasma [facility] Complement C3 [Mass/ volume] in Serum or Plasma [facility] Complement C4 [Mass/ volume] in Serum or Plasma [facility] Hepatitis B virus hernandez rface Ab [Presence] in Serum [facility] Hepatitis B virus hernandez rface Ag [Presence] in Serum or Plasma by Immunoassay [facility] Hepatitis C virus Ig G Ab [Presence] in Serum or Plasma by Immunoassay [facility] Homogenous nuclear A b pattern [Titer] in Serum [facility] Nuclear Ab [Titer] in Serum [facility] Reagin Ab [Presence] in Serum by RPR [facility] Thyroglobulin Ab [Units/volume] in Serum or Plasma [facility] Thyroperoxidase Ab [Units/volume] in Serum or Plasma [facility] Immunizations Immunization Date Immunization Notes Care Provider Fa cility 07-13-2020 COVID-19 mRNA Comirnaty (Pfizer) Ave Mehta MD Work Phone: [facility] 06-19-2020 COVID-19 Sarah Heredia (Pfizer) Ave Mehta MD Work Phone: [facility] Payers Date Payer Category Payer Medicare [id number] 2025 Unknown [id number] 2024 Self-pay 2023 Medicaid [id number] 2022 Medicare 2022 Unknown 2002 Medicare [id number] 1959 Medicare [id number] 1959 Self-pay [id number] 1959 Unknown [id number] 1948 Unknown [id number] 2.16.8 40.1.616351.3.579.2.647 1948 Unknown [id number] 2.16. 840.1.743931.3.579.2.732 1948 Unknown [id number] 2.16.84 0.1.751718.3.579.2.593 1948 Unknown [id number] 2.16.84 0.1.807150.3.579.2.593 1948 Unknown [id number] 2.16.84 0.1.001777.3.579.2.593 1948 Unknown [id number] 2.16.84 0.1.088601.3.579.2.593 1948 Unknown [id number] 2.16.84 0.1.920984.3.579.2.593 1948 Unknown [id number] 2.16.84 0.1.701384.3.579.2.593 1948 Unknown [id number] 2.16.84 0.1.440942.3.579.2.593 1948 Unknown [id number] 2.16.84 0.1.824955.3.579.2.593 1948 Unknown [id number] 2.16.84 0.1.226509.3.579.2.593 1948 Unknown [id number] 2.16.84 0.1.426929.3.579.2.593 1948 Unknown [id number] 2.16.84 0.1.688124.3.579.2.593 1948 Unknown [id number] 2.16.84 0.1.281434.3.579.2.593 1948 Unknown [id number] 2.16.84 0.1.642422.3.579.2.593 1948 Unknown [id number] 2.16.84 0.1.851043.3.579.2.593 1948 Unknown [id number] 2.16.84 0.1.197324.3.579.2.593 1948 Unknown [id number] 2.16.84 0.1.270391.3.579.2.593 1948 Unknown [id number] 2.16.84 0.1.252021.3.579.2.593 1948 Unknown [id number] 2.16.84 0.1.700756.3.579.2.593 1948 Unknown [id number] 2.16.84 0.1.319932.3.579.2.593 1948 Unknown [id number] 2.16.84 0.1.900096.3.579.2.593 1948 Unknown [id number] 2.16.84 0.1.988791.3.579.2.593 1948 Unknown [id number] 2.16.84 0.1.054043.3.579.2.593 1948 Unknown [id number] 2.16.84 0.1.030714.3.579.2.593 1948 Unknown [id number] 2.16.84 0.1.906244.3.579.2.593 1948 Unknown [id number] 2.16.84 0.1.279897.3.579.2.593 1948 Unknown [id number] 2.16.84 0.1.001211.3.579.2.593 1948 Unknown [id number] 2.16.84 0.1.830244.3.579.2.593 1948 Unknown [id number] 2.16.84 0.1.469829.3.579.2.593 1948 Unknown [id number] 2.16. 840.1.835397.3.579.2.196 1948 Unknown [id number] 2.16. 840.1.430147.3.579.2.196 1948 Unknown [id number] 2.16. 840.1.643771.3.579.2.196 1948 Unknown [id number] 2.16. 840.1.784089.3.579.2.196 1948 Unknown [id number] 2.16.8 40.1.749426.3.579.2.727 1948 Unknown [id number] 2.16.8 40.1.911710.3.579.2.727 1948 Unknown [id number] 2.16.8 40.1.708718.3.579.2.727 1948 Unknown [id number] 2.16.8 40.1.321085.3.579.2.727 1948 Unknown [id number] 2.16.8 40.1.755280.3.579.2.727 1948 Unknown [id number] 2.16.8 40.1.392168.3.579.2.727 Unknown [id number] 2.16.84 0.1.763697.3.579.2.593 Unknown [id number] 2.16.8 40.1.826424.3.579.2.531 Unknown [id number] 2.16.8 40.1.142560.3.579.2.531 Social History Date Type Detail Facility Sex Assigned At [facility] Start: 11-07-2021 End: 11-07-2021 Tobacco smoking status NHIS Never smoked tobacco (finding) [facility] Start: 08-01-2024 Sex Female (finding) [facility] Start: 1950 Sex Assigned At Female F [facility] Clinical Notes 04-29-2021 to 02-05-2025 Note Date & Type Note Facility 02-05-2025 Evaluation note Diagnosis Onset Date Resolution Debility acute February 05, 025 12:30pm Generalized weakness acute Augu 2024 12:30pm Hallucinations acute January 12:30pm Metabolic encephalopathy acute February 05, 2025 12:30pm Obesity acute February 05 12:30pm 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 Performing Locations R1: This test was performed at: [facility], [address] [place] [address], [address] [place] [address], KfjovcMer[facility] HospitalComment on above:Performed By: #### [id number] #### [facility] [address] [place] [address] [id number] NoteMicrobiology PROCEDURE: Blood Culture Charcoal [R1] SOURCE: Blood BODY SITE: Wrist R COLLECTED DATE/TIME: 01/13/2025 15:02 EDT RECEIVED DATE/TIME: 01/13/2025 15:10 EDT START DATE/TIME: 01/13/2025 15:10 EDT FREE TEXT SOURCE: Bobo Ashraf, Brittny Broussard M.D., Brittny Mejia FINAL REPORTS Final Report [] Verified Date/Time: 01/20/2025 15:55 EDT No growth at 7 days. Performing Locations R1: This test was performed at: [facility], [address] [place] [address], [id number] , , QifnhcMercy Health Defiance HospitalComment on above:Performed By: #### [id number] #### [facility] [address] [place] [address] [phone] NoteDischarge Summary Admission and Discharge Information Admit Date/Time:01/13/2025 15:12 Admitting Physician - Jarrod Mahajan III, DO Consulting Physician - Bhupinder OLIVER, Marino [facility] Wound, XXXX Admitting Diagnoses: Discharge Diagnoses 1. [...] vitamin D deficiency who was brought to [facility] on 01/13/2025 after being [facility]. Stroke alert was called in the ER. CT brain was negative. Unresponsiveness: Neurology consulted. Patient underwent MRA of head and neck and MRI brain which were unremarkable and showed chronic white matter changes with no significant stenosis or aneurysmal dilatation. Her mentation was excellent throughout her stay. She was noted to have a flat affect anddid endorse auditory hallucinations that have been chronic for the past 2 years. Does have mild parkinsonism that neurology discussed could be probably related to her olanzapine usage. She also reported thinking that she had plastic in her mouth there was no plastic on exam or on any imaging of herhead or neck. Suspect this may be partially related to hallucinations as well. Recommended dentist f ollow-up and offered patient reassurance. She voiced her understanding. Cleared for discharge from neurologic perspective and at baseline on discharge. Sepsis: Treated for recent pneumonia at [facility] possibly aspiration. Also has chronic lower extremity wounds. Met sepsis criteria with source being either lower extremity wounds and/or pneumonia. Started on Vanco, Zosyn, azithromycin. Vancomycin discontinued as nasal MRSA screening was negative. Patient's white blood cell count down trended. Patient was still on oxygen from her previous admission at [facility]. She completed 3 days of azithromycin IV while inpatient and 3 days of Zosyn. Patient did not have significant cough enough to produce a sputum culture. Preliminary blood cultures negative. Respiratory PCR and COVID testing were negative. Antibiotics were de-escalated to Augmentin for an additional 5 days on discharge. On a modified diet for possible aspiration and speech reevaluatedher during her inpatient stay and recommended continuing [...] psychiatric thoughts. Tests Performe (more content not included)...[facility] HospitalComment on above:Result Comment: Electronically Signed By: Jarrod Mahajan III, DO.sharan\Date and Time Signed: 01/15/25 11:03 [id number] NoteProgress Note-Physician Assessment/Plan ASSESSMENT: Reportedly unresponsive at the [facility]. Not sure what this means. I do not think she lost consciousness. She reportedly had some speech changes or intermittent unintelligible mumbling. Upon arrivalhere it sounds like she was at her cognitive baseline. She has a flat affect, hypophonic and monotone speech. Mild parkinsonism with some mild bradykinesia and mild increased tone (and the hypophonicspeech), probably related to her olanzapine usage. Chronic (at least a few years) intermittent mildauditory hallucinations might be due to a psychosis aspect of her bipolar disorder. Lower suspicionfor Lewy body disease. MRI brain is without any acute or concerning findings. It does show moderate- severe generalized atrophy and especially pronounced focal atrophy of bilateral anterior parietal lobes. MR angiography isunremarkable. PLAN: No other recommendations at this time [...] baseline. Waiting to go back to the [facility]. Review of Systems GEN: No fevers or chills. CV/PULM: No chest pain. No shortness of breath. No palpitations. NEURO: No headaches. No loss of vision. No double vision. No dysphagia. Reported speech changes. Nofocal weakness. No sensory loss [1] Objective Vitals [...] is alert. Attention mildly impaired. Oriented to [facility], January,. LANG: Speech is somewhat hypophonic, monotone. [...] Lymph Auto: 7.1 % Low (01/15/25 04:57:00) [place] Auto: 8.5 % (01/15/25 04:57:00) Eos Auto: 7 % (01/15/25 04:57:00) Basophil Auto: 0.7 % (01/15/25 04:57:00) Neutro Absolute: 9.4 E9/L High (01/15/25 04:57:00) Lymph Absolute: 0.9 E9/L Low (01/15/25 04:57:00) [place] Absolute: 1 E9/L (01/15/25 04:57:00) Eos Absolute: 0.9 E9/L High (01/15/25 04:57:00) Basophil Absolute: 0.1 E9/L (01/15/25 04:57:00) Glucose Lvl: 94 mg/dL (01/15/25 04:57:00) BUN: 23 mg/dL High ( (more content not included)...[facility] HospitalComment on above:Result Comment: Electronically Signed By: Celia Duncan RN\.br\Date and Time Signed: 01/15/25 06:56 EDT\.br\Electronically Co- Signed By: Kiel Pacheco DO\.br\Date and Time Co-Signed: 01/15/25 09:06 EDT 01-14-2025 NoteProgress Note-Physician Assessment/Plan The patient is a 74-year-old female [...] vitamin D deficiency who was brought to [facility] on 01/13/2025 after being [facility] un[facility]. Treated for recent pneumonia at [facility] possibly aspiration. Also has chronic lower extremity wounds. Met sepsis c nicolas with source being either lower extremity wounds [...] eGFR Sbsq Hospital Care/Day Moderate 35 Minutes [id number] 2. Pneumonia (J18.9: Pneumonia, unspecified organism) Treatment [...] She recently had an ASHLEY on recent [place] admission and had downtrended to 1.6. Will [...] TID, Routine, Start date 01/13/25 22:00:00 EDT, 01/13/2521:15:00 EDT carvedilol, 25 mg = 1 tab(s), [...] EDT escitalopram, 10 mg (more content not included)...[facility] Comment on above:Result Comment: Electronically Signed By: Jarrod Mahajan III, DO\.br\Date and Time Signed: 01/14/25 16:48 [id number] Note Echocardiology Procedure Exam Date/Time Accession # Ordering Echo Transthoracic w/ 01/14/2025 11:49 EDT [id number] Jarrod Mahajan III, DO CPT code 65200 C8929 Reason for Exam (Echo Transthoracic w/ Contrast) Congestive Heart Failure Report [address] [address] Adult Echocardiogram Report Name: LINDA NASCIMENTO Study Date: 01/14/2025 11:05 AM BP: 144/96 mmHg Patient Location: [address] [place] [address] HR: 62 : 1950 Gender: Female Height: 65 in Age: 74 yrs Ethnicity: [facility] Weight: 287 lb Reason For Study: Congestive Heart Failure BSA: 2.3 m2 History: Pacemaker, AFIB, CAD, Sarcoidosis, CKD, Seizures, Retinal artery occlusion Ordering Physician: Jarrod Mahajan Performed By: Kami Ruiz, [facility] Interpretation Summary The left ventricle is [...] TR max P.2 mmHg RVSP(TR): 35.2 mmHg FINAL REPORT Dictated: 01/14/2025 11:05 am Quita Alvarado MD Signed (Electronic Signature): 01/14/2025 12:25 pm Signed by: Quita Alvarado MD Transcribed by: MARYSE Technologist: [facility]08-04-2025 Note History and Physical Basic Information Admit [...] vitamin D deficiency who was brought to [facility] on 01/13/2025 after being [facility] un[facility]. Stroke alert was called in ER. On record review, patient recently treated for an aspiration pneumonia at [facility] and was seemingly still on outpatient oral [...] me that she chronically lives [facility]. She is pleasant and conversational. She was able to tell me what brought her to the ER today and seems to remember everything that brought her to the ER into this and subsequent admission. She is somewhat slow to respond sometimes to questioning. No focal neurologic deficits on exam. Her [place], she did endorse auditory hallucinations and is unable to tell me exac tly when this started, but thinks they started recently. Denies any visual hallucinations or actingout dreams. Past medical history: See above Past [...] Lymph Auto: 5.2 % Low (01/13/25 13:19:00) [place] Auto: 2.2 % Low (01/13/25 13:19:00) Eos Auto: 0.4 % (01/13/25 13:19:00) Basophil Auto: 0.5 % (01/13/25 13:19:00) Neutro Absolute: 12.6 E9/L High (01/13/25 13:19:00) Lymph Absolute: 0.7 E9/L Low (01/13/25 13:19:00) [place] Absolute: 0.3 E9/L (01/13/25 13:19:00) Eos Absolute: [...] Lvl: 139 mmol/L (01/13/ (more content not included)...[facility] HospitalComment on above:Result Comment: Electronically Signed By: Jarrod Mahajan III, DO\.br\Date and Time Signed: 01/13/25 21:14 [id number] Note Progress Note - Pharmacy Indication: Empiric Treatment Goal Range:Trough: 10 - 20 RECOMMENDATIONS PLAN: Pharmacy consulted for vancomycin dosing for LINDA NASCIMENTO, a 74 Years, Female who is being treated with vancomycin for empiric 1. VANCO STATUS Vancomycin therapy is still active, today is day 1 of treatment. Patient in ASHLEY scrof 1., will dose by level, ordered vanco 1000 mg x1 dose will recheck level ~24 hr, scr per xdocs ~1.- 1.2 2. VANCO LEVEL _ 3. DOSING RECS _Dose by level 4. NEXT LEVELThe next level is scheduled for 1600 on 01/14. 5. MRSA NASAL SWAB A MRSA Nasal swab [...] Lymph Auto: 5.2 % Low (01/13/25 13:19:00) [place] Auto: 2.2 % Low (01/13/25 13:19:00) Eos Auto: 0.4 % (01/13/25 13:19:00) Basophil Auto: 0.5 % (01/13/25 13:19:00) Neutro Absolute: 12.6 E9/L High (01/13/25 13:19:00) Lymph Absolute: 0.7 E9/L Low (01/13/25 13:19:00) [place] Absolute: 0.3 E9/L (01/13/25 13:19:00) Eos Absolute: [...] (01/13/25 14:18:00) UA Leuk Est: Negat (01/13/25 14:18:00)[facility]07[facility] Note [place] Electrophysiology Consult Note [place] [facility] Reason for visit: Afib 12/31/24 Patient is here today for a device check and a follow up appointment. Patient states her chest hurts due to fluid in her chest, patient states the nurse at the [facility] told her she doesn't have pneumonia. Patient [...] with prior history of transferred from an [facility] to [facility] following a fall that she sustained. She was noted to be bradycardic and EKG at that time showed her to have bradycardia in the rate of 30s following admission to [facility] she was noted to [...] ANGIOGRAM W AND/OR WO IV CONTRAST 04/23/[address] [facility] [address] IMAGING CTA CHEST W IV CONTRAST 04/23/2022 CT CHEST ANGIOGRAM W AND/OR WO IV CONTRAST 04/23/[address] [facility] [address] IMAGING TONSILLECTO (more content not included)...[facility] 05-21-2024 Note[place] Electrophysiology Consult Note [place] [facility] Reason for visit: 05/21/24 Pt has [...] with prior history of transferred from an [facility] to [facility] following a fall that she sustained. She was noted to be bradycardic and EKG at that time showed her to have bradycardia in the rate of 30s following admission to [facility] she was noted to [...] ANGIOGRAM W AND/OR WO IV CONTRAST 04/23/[address] [facility] [address] IM[address] CT CHEST ANGIOGRAM W AND/OR WO IV CONTRAST 04/23/2022 CT CHEST ANGIOGRAM W AND/OR WO IV CONTRAST 04/23/[address] [facility] [address] IMAGING TONSILLECTOMY SH: [...] Intimate Partner Violence: Unkn (more content not included)...[facility]10-19-2022 Evaluation note* Encounter Date Diagnosis Assessment Notes Treatment Notes Treatment Clinical Notes Mar, Other spondylosis with radiculopathy, lumbar region (ICD-10 - M47.26) [facility] 10-13-2022 Evaluation note* Encounter Date Diagnosis [...] note writ ten by Summer Molina LPN, Certified Pesticide Applicator. Edited and approved by Dr. Rancho Chamorro MD. [facility] 10-05-2022 Evaluation note* Encounter Date Diagnosis Assessment Notes Treatment Notes Treatment Clinical Notes Mar, Other low back pain (ICD-10 - M54.59) [facility] 07-14-2022 Evaluation note* Encounter Date Diagnosis [...] note writ ten by Mika Villalobos MA, Certified Pesticide Applicator. Edited and approved by Dr. Rancho Chamorro MD. [facility] Other 06-08-2022 Evaluation note* Encounter Date Diagnosis [...] note writ ten by Mika Villalobos MA, Certified Pesticide Applicator. Edited and approved by Dr. Rancho Chamorro MD. [facility] Other 06-08-2022 Evaluation note* Encounter Date Diagnosis [...] four weeks, case discussed with [facility] and will consult [facility] care. [facility] 05-25-2022 Evaluation note* Encounter Date Diagnosis [...] for Keflex BID x 14 days and [place]. Patient and sister instructed to contact office with any signs of infection or significant changes [facility] 05-19-2022 Evaluation note* Encounter Date Diagnosis [...] note writ ten by Summer Molina LPN, Certified Pesticide Applicator. Edited and approved by Dr. Rancho Chamorro MD. [facility] 04-28-2022 Evaluation note* Encounter Date Diagnosis Assessment Notes Treatment Notes Treatment Clinical Notes Sep, Pacemaker (ICD-10 - Z95.0) [facility] 04-27-2022 Evaluation note* Encounter Date Diagnosis [...] spinal osteoarthritis complication status (ICD-10 - M47.816) [facility] 03-30-2022 Evaluation note* Encounter Date Diagnosis [...] D. To call with questions or concerns. [facility] 11-18-2021 NoteMR#: [id number] I [facility] Pt. Name: Linda Nascimento Admitted: 04/21/2021 [...] The patient was subsequently transferred to the [facility] for higher level of [...] Lozada MD Date Trans: 04/29/2021 12:17 P/mmo [id number] cc: Leslie Arroyo M.D. [address] [place] [address]. [employer] [address] [place] [id number] M[address], [facility] [id number] HealthEvaluation noteNo InformationNortWellSpan [facility] Hospital [employer] Other Evaluation noteNo assessment information available [facility] Work Phone: Evaluation note* Diagnosis Onset Date Resolution Status Admit Date Stroke-like symptoms noneactive Augu 2024 12:30pm [facility] Work Phone: History general Narrative - Reported* Type Description Date Medical History bipolar Medical History Arthritis Medical History high blood pressure Medical History chronic depression Medical History iron deficiency anemia Medical History kidney disease Medical History hyperlipidemia Medical History anxiety Medical History vitamin D deficiency Surgical History tonsillectomy Surgical History laparoscopy Hospitalization History depression [facility] [employer] Other Reason for referral (narrative)No reason for referral information availableOhiohealth O'[facility]len[facility] Hospital Work Phone: Summary Purpose Family History No Family History [...] Stroke-like symptoms February 05, 2025 1 2:30pm Chief Complaint Admit Date See order February 09, 2025 6: 19pm Reason for Visit Admit Date Debility February 05, 2025 12 :30pm Generalized weakness February 05, 2025 1 2:30pm Hallucinations February 05, 2025 12 :30pm Metabolic encephalopathy February 05 12:30pm Obesity February 05, 2025 12 :30pm Parkinsonism due to drug February 05 12:30pm Unresponsive February 05, 2025 12 :30pm Additional Source Comments INFORMATION SOURCE (unrecogn ized section and content) DATE CREATED AUTHOR 05/30/[address] [facility] DATE CREATED AUTHOR AUTHOR'S ORGANIZ ATION 04/05/2022 [facility] DATE CREATED AUTHOR AUTHOR'S ORGANIZ ATION 10/19/2022 [facility] DATE CREATED AUTHOR AUTHOR'S ORGANIZ ATION 03/27/2023 [facility] DATE CREATED AUTHOR AUTHOR'S ORGANIZ ATION 05/10/2024 [facility] DATE CREATED AUTHOR AUTHOR'S ORGANIZ ATION 01/15/2025 [facility] DATE CREATED AUTHOR AUTHOR'S ORGANIZ ATION 01/16/2025 [facility] DATE CREATED AUTHOR AUTHOR'S ORGANIZ ATION 01/17/2025 [facility] DATE CREATED AUTHOR AUTHOR'S ORGANIZ ATION 01/18/2025 [facility] DATE CREATED AUTHOR AUTHOR'S ORGANIZ ATION 01/19/2025 [facility] DATE CREATED AUTHOR AUTHOR'S ORGANIZ ATION 01/21/2025 [facility] DATE CREATED AUTHOR AUTHOR'S ORGANIZ ATION 02/13/2025 [facility] ysician Group REASON FOR VISIT (unrecogniz ed [...] February 05, 2025 End: February 05, 2025 Team Status: Inactive Member Role Status Dates Ave Mehta MD Primary Care Provider Active Start: February 09, 2025 End: February 09, 2025 Leonie Weaver MD Attending Provider Active St art: February 09, 2025 End: February 09, 2025 Goals (unrecognized section and content) Goals [...] BE BASED ON THE PRIMARY CLINICAL RECORDS. [employer] [facility]. provides no warranty or guarantee of the accuracy or completeness of information in this document.
--- NOTE | 2025-02-21 14:49 | CT_ITS ---
The [address] [address] Patient Name: TIGIST MARCIAL MRN: [id number] date: 1950 Sex: F Assigned Patient Location: ER Current Patient Location: ER Accession/Order Number: [id number] Exam Date: 02/21/2025 14:56 Report Date: 02/21/2025 15:30 At the request of: ISAIAS PHILLIPS MD Procedure: CT head/brain wo con CT BRAIN WITHOUT CONTRAST: CLINICAL HISTORY: ams COMPARISON: 02/09/2025 TECHNIQUE: Contiguous axial unenhanced images were obtained through the brain. This CT exam was performed using one or more following dose reduction techniques: Automated exposure control, adjustment of the mA and/or kV according to patient size, or use of iterative reconstruction technique. FINDINGS: There is no evidence of midline shift, intra or extra-axial fluid collection, hemorrhage or CT evidence of acute large vascular distribution stroke. Mild central involutional changes and chronic small vessel ischemic disease. Remote lacunar stroke right anterior limb internal capsule. Otherwise vascular calcifications. Cataract surgery. Operators sinus mucoperiosteal thickening. Mastoids are clear. The surrounding soft tissues are normal. CT/CT head/brain wo con IMPRESSION: NO ACUTE INTRACRANIAL ABNORMALITY. CHRONIC MICROVASCULAR DISEASE AND CENTRAL INVOLUTIONAL CHANGES. Impression dictated by: Hudson Simmons M.D. 02/21/2025 3:30 PM Dictation Location: [place] [address] Electronically authenticated by: [id number] Y Date: 02/21/2025 15:30
[2025-02-21 15:06] LABS: Hematocrit 40.5 % (36.0-48.0); Hemoglobin 13.9 g/dL (12.0-16.0); Mean Corpuscular HGB Conc 34.3 g/dL (29.9-35.2); Mean Corpuscular Hemoglobin 34.2 pg (26.7-34.0); Mean Corpuscular Volume 99.5 fL (81.0-99.0); Platelet Count 240 10^3/uL (150-450); Red Blood Count 4.07 10^6/uL (4.20-5.40); White Blood Count 10.5 10^3/uL (4.0-11.0)
[2025-02-21] MEDS: HYDRALAZINE HCL 20 MG/ML VIAL 5 MG IVP (15:11)
[2025-02-21 15:21] LABS: Alanine Aminotransferase 66 U/L (14-59); Albumin Globulin Ratio 1.0; Albumin Level 3.9 g/dL (3.4-5.0); Alkaline Phosphatase 80 U/L (46-116); Anion Gap 16.1; Aspartate Amino Transferase 45 U/L (15-37); Blood Urea Nitrogen 54.0 mg/dL (7.0-18.0); Calcium 9.2 mg/dL (8.5-10.1); Carbon Dioxide 27.2 mmol/L (21.0-32.0); Chloride 101 mmol/L (98-107); Estimated GFR (African America 25 (>=60 mL/min/1.73m^2); Estimated GFR (Non-African Ame 21 (>=60 mL/min/1.73m^2); Globulin 4.1 g/dL; Glucose 112 mg/dL (74-106); Potassium 4.3 mmol/L (3.5-5.1); Sodium 140 mmol/L (136-145); Total Protein 8.0 g/dL (6.4-8.2)
--- NOTE | 2025-02-21 15:21 | ED.AMS1 ---
HPI - Altered Mental Status General Chief Complaint: Altered Mental Status Stated Complaint: ALTERED MENTAL STATUS Time Seen by Provider: 02/21/25 14:23 Source: patient Mode of arrival: ambulance Limitations: no limitations History of Present Illness HPI narrative: The patient is coming to us from correction facility at the [place], she has been apparently generally weak and that why the nurses over there sent her over to be evaluated for generalized weakness and possible altered mental status, although the patient on arrival she mentioned that she does not know why she is here, she does look weak but oriented x 3 although the patient take time to answers question which was noted in previous evaluation according to the hospitalist note. The patient denies any chest pain nausea or vomiting, she mentioned that she had not been able to get up and go to the bathroom because nobody helped her, she requested to go to the bathroom I told her if she is urinating and she wanted to avoid the [place] catheter Related Data Home Medications ?Medication ?Instructions ?Recorded ?Confirmed apixaban 5 mg tablet (Eliquis) 5 mg PO BID 11/15/22 02/09/25 baclofen 10 mg tablet 10 mg PO DAILY@1400 11/15/22 02/09/25 dapagliflozin propanediol 10 mg 10 mg PO DAILY 11/15/22 02/09/25 tablet (Farxiga) escitalopram oxalate 10 mg tablet 10 mg PO DAILY 11/15/22 02/09/25 (Lexapro) ferrous sulfate 325 mg (65 mg 325 mg PO DAILY 11/15/22 02/09/25 iron) tablet (Feosol) lamotrigine 150 mg tablet 150 mg PO DAILY 11/15/22 02/09/25 multivitamin with iron 1 tab PO DAILY 11/15/22 02/09/25 pantoprazole 40 mg tablet,delayed 40 mg PO DAILY 11/15/22 02/09/25 release polyethylene glycol 3350 17 gram 17 g PO DAILY PRN laxative 11/15/22 02/08/25 oral powder packet (Miralax) potassium chloride 10 mEq 10 meq PO BID 11/15/22 02/09/25 tablet,extended release tamsulosin 0.4 mg capsule 0.4 mg PO .QHS 11/15/22 02/09/25 baclofen 20 mg tablet 20 mg PO QAM 11/16/22 02/09/25 acetaminophen 325 mg capsule 650 mg PO Q6H PRN pain 04/02/24 02/08/25 donepezil 10 mg tablet (Aricept) 10 mg PO .QHS 04/02/24 02/09/25 furosemide 20 mg tablet 60 mg PO DAILY 04/02/24 02/09/25 olanzapine 15 mg tablet 15 mg PO .QHS 04/02/24 02/09/25 venlafaxine 150 mg 150 mg PO DAILY 04/02/24 02/09/25 capsule,extended release 24 hr (Effexor XR) clonazepam 0.5 mg tablet 0.5 mg PO TID 02/09/25 02/09/25 Previous Rx's ?Medication ?Instructions ?Recorded spironolactone 25 mg tablet 12.5 mg (1/2 x 25 mg) PO DAILY #30 01/10/25 tabs carvedilol 12.5 mg tablet 12.5 mg PO BID #30 tabs 02/11/25 fentanyl 50 mcg/hr transdermal 1 patch transdermal Q72H 3 days #1 02/11/25 patch ea levofloxacin 500 mg tablet 250 mg (1/2 x 500 mg) PO QD 4 days 02/11/25 #4 tabs sennosides 8.6 mg-docusate sodium 2 tab PO QD 3 days #6 tabs 02/11/25 50 mg tablet (Senna Plus) losartan 50 mg tablet 50 mg PO DAILY #10 tabs 02/21/25 Allergies Allergy/AdvReac Type Severity Reaction Status Date / Time cephalexin Allergy Unknown Verified 02/21/25 14:25 Review of Systems ROS Status of ROS 10 or more systems reviewed and unremarkable except as noted in history and below [facility] Medical History (Updated 02/21/25 @ 16:48 by Geri Dennis MD) Chronic venous stasis dermatitis of lower extremity ?I87.2 - Venous insufficiency (chronic) (peripheral) (ICD-10) History of atrial fibrillation ?Z86.79 - Personal history of other diseases of the circulatory system (ICD-10) Urinary retention ?R33.9 - Retention of urine, unspecified (ICD-10) CKD (chronic kidney disease), stage IV ?N18.4 - Chronic kidney disease, stage 4 (severe) (ICD-10) Multifactorial functional impairment ?R53.81 - Other malaise (ICD-10) Acute UTI ?N39.0 - Urinary tract infection, site not specified (ICD-10) Chronic 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 (ICD-10) Obesity ?E66.9 - Obesity, unspecified (ICD-10) Acute hypoxic respiratory failure ?J96.01 - Acute respiratory failure with hypoxia (ICD-10) Atrial fibrillation ?I48.91 - Unspecified atrial fibrillation (ICD-10) Venous ulcer ?I83.009 - Varicose veins of unspecified lower extremity with ulcer of unspecified site (ICD-10) ?L97.909 - Non-pressure chronic ulcer of unspecified part of unspecified lower leg with unspecified severity (ICD-10) Bipolar disorder ?F31.9 - Bipolar disorder, unspecified (ICD-10) 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 - Syndrome of inappropriate secretion of antidiuretic hormone (ICD-10) Hyponatremia ?E87.1 - Hypo-osmolality and hyponatremia (ICD-10) Bronchitis ?J40 - Bronchitis, not specified as acute or chronic (ICD-10) Knee effusion ?M25.469 - Effusion, unspecified knee (ICD-10) Gastrointestinal hemorrhage ?K92.2 - Gastrointestinal hemorrhage, unspecified (ICD-10) Venous insufficiency ?I87.2 - Venous insufficiency (chronic) (peripheral) (ICD-10) Hypomagnesemia ?E83.42 - Hypomagnesemia (ICD-10) Acute kidney failure ?N17.9 - Acute kidney failure, unspecified (ICD-10) UTI (urinary tract infection) ?N39.0 - Urinary tract infection, site not specified (ICD-10) Cellulitis ?L03.90 - Cellulitis, unspecified (ICD-10) Encephalopathy ?G93.40 - Encephalopathy, unspecified (ICD-10) Venous ulcer of right leg ?I83.019 - Varicose veins of right lower extremity with ulcer of unspecified site (ICD-10) ?L97.919 - Non-pressure chronic ulcer of unspecified part of right lower leg with unspecified severity (ICD-10) Venous ulcer of left leg ?I83.029 - Varicose veins of left lower extremity with ulcer of unspecified site (ICD-10) ?L97.929 - Non-pressure chronic ulcer of unspecified part of left lower leg with unspecified severity (ICD-10) GERD (gastroesophageal reflux disease) ?K21.9 - Gastro-esophageal reflux disease without esophagitis (ICD-10) Paroxysmal A-fib ?I48.0 - Paroxysmal atrial fibrillation (ICD-10) Myocardial infarction ?I21.9 - Acute myocardial infarction, unspecified (ICD-10) Bipolar 1 disorder, manic, mild ?F31.11 - Bipolar disorder, current episode manic without psychotic features, mild (ICD-10) Vitamin D deficiency ?E55.9 - Vitamin D deficiency, unspecified (ICD-10) CKD (chronic kidney disease) stage 2, GFR 60-89 ml/min ?N18.2 - Chronic kidney disease, stage 2 (mild) (ICD-10) Shock therapy as the cause of abnormal reaction of patient or of later complication without misadventure at time of procedure ?Y84.3 - Shock therapy as the cause of abnormal reaction of the patient, or of later complication, without mention of misadventure at the time of the procedure (ICD-10) Normal colonoscopy Hematoma of lower leg ?S80.10XA - Contusion of unspecified lower leg, initial encounter (ICD-10) HTN (hypertension) ?I10 - Essential (primary) hypertension (ICD-10) Sarcoidosis ?D86.9 - Sarcoidosis, unspecified (ICD-10) Seizures ?R56.9 - Unspecified convulsions (ICD-10) Anemia ?D64.9 - Anemia, unspecified (ICD-10) Arthritis ?M19.90 - Unspecified osteoarthritis, unspecified site (ICD-10) Surgical History Hx of tonsillectomy ?Z90.89 - Acquired absence of other organs (ICD-10) H/O exploratory laparotomy ?Z98.890 - Other specified postprocedural states (ICD-10) Family History Mother Family history of cancer Social History Within the past year, how often did you have a drink containing alcohol: never Score interpretation: A score less than 3 is consistent with normal alcohol consumption. Smoking status: Never smoker Non-prescribed substance use: denies use Highest level of school completed/degree received: high school graduate Little interest or pleasure in doing things: not at all Feeling down, depressed, or hopeless: not at all Exam Narrative Exam Narrative: Nurses notes and vital signs reviewed and patient is not hypoxic. General: Well-appearing and in no apparent distress. Skin: Warm, dry, no pallor noted. No rash. Head: Normocephalic, atraumatic. Neck: Supple, non-tender. Eye: Pupils are equal, round and EOMI. No scleral icterus. Ears, Nose, Mouth, and Throat: TM are clear, no nasal mucosal hypertrophy. Oral mucosa is moist, no posterior oropharynx erythema, uvula is mid-line Cardiovascular: Regular Rate and Rhythm without murmur, gallop or rub. Respiratory: No accessory muscle use or respiratory distress. Lungs are clear to auscultation, no wheezing, rales or rhonchi Chest Wall: no tenderness Musculoskeletal: Chronic changes and chronic 1+ edema GI: Abdomen is soft, non-distended. Normal bowel sounds. No masses appreciated. No tenderness to palpation. No rebound, guarding, or rigidity noted. Neurological: A&O x3. No cranial nerve dysfunction observed. No truncal ataxia. Moves all extremities. Sensation intact. Psychiatric: Cooperative and interactive. Normal mood and affect. Constitutional Vital Signs, click to edit/add: Last Vital Signs Temp 98.8 F 02/21/25 14:25 Pulse 70 02/21/25 16:36 Resp 14 02/21/25 16:36 BP 187/103 H 02/21/25 16:55 Pulse Ox 98 02/21/25 16:10 O2 Del Method Room Air 02/21/25 14:25 Course Vital Signs Vital signs: Vital Signs Pulse Oximetry 94 L 02/21/25 14:24 Temperature 98.8 F 02/21/25 14:25 Pulse Rate 70 02/21/25 16:36 Respiratory Rate 14 02/21/25 16:36 Blood Pressure 187/103 H 02/21/25 16:55 Pulse Oximetry 98 02/21/25 16:10 Oxygen Delivery Method Room Air 02/21/25 14:25 MDM - Altered Mental Status MDM Narrative Medical decision making narrative: The EKG showing paced rhythm with a heart rate of [address] elevation The patient herself did not have any complaint although the main concern for her was the fact that she did not get out of the bed since she was admitted to this hospital at the beginning of the month. As per the patient she does not get a lot of help there to get to the bathroom because they would not let her as per the patient history When helped the patient was able to get to the bedside commode and urinate almost 1300 cc of urine which was seen in her bladder scan The patient urine was sent for culture as the patient does not have any urine symptoms but she recently finished antibiotic ciprofloxacin according to the paperwork she had from the [place] The patient CBC shows no leukocytosis chemistry showing chronic kidney disease with a BUN elevated at 50s. Patient was provided with almost 200 cc of fluid only in the ER because of her history of congestive heart failure I did notice that the blood pressure of the patient was elevated and she was taking losartan 25 mg daily I did speak with and expressed my above concern about the patient ambulation in addition to the fact that her blood pressure medication will be increased from 25 mg to 50 mg daily. The patient will have her blood workup rechecked within few days as per Dr. Navarrete to make sure that her BUN and creatinine is monitored The patient was instructed to add 1 cup of water daily to her daily hydration The patient in the ER also had a chest x-ray and CAT scan both of them did not show any acute pathology The patient generalized muscular weakness could be secondary to the COVID that the patient had recently had I would recommend the patient to be ambulated more out of bed as she was requesting Lab Data Labs: Lab Results 02/21/25 Range/Units 14:43 WBC 10.5 (4.0-11.0) 10^3/uL RBC 4.07 L (4.20-5.40) 10^6/uL Hgb 13.9 (12.0-16.0) g/dL Hct 40.5 (36.0-48.0) % MCV 99.5 H (81.0-99.0) fL MCH 34.2 H (26.7-34.0) pg MCHC 34.3 (29.9-35.2) g/dL RDW 12.8 (11.0-15.0) % Plt Count 240 (150-450) 10^3/uL MPV 10.2 (9.5-13.5) fL Seg Neuts % (Manual) 86.0 H (43.0-75.0) Band Neutrophils % 1.0 (0-5) % Lymphocytes % (Manual) 6.0 L (20.5-60.0) % Monocytes % (Manual) 7.0 (1.7-12.0) % Eosinophils % (Manual) 0.0 L (0.9-7.0) % Basophils % (Manual) 0.0 L (0.2-2.0) % Neutrophils # (Manual) 9.03 H (1.4-6.5) 10^3/uL Band Neutrophils # 0.1 (0.0-0.3) 10^3/uL Lymphocytes # (Manual) 0.63 L (1.20-3.80) 10^3/uL Monocytes # (Manual) 0.73 (0.30-0.80) 10^3/uL Eosinophils # (Manual) 0.00 (0.00-0.70) 10^3/uL Basophils # (Manual) 0.00 (0.00-0.10) 10^3/uL Sodium 140 (136-145) mmol/L Potassium 4.3 (3.5-5.1) mmol/L Chloride 101 (98-107) mmol/L Carbon Dioxide 27.2 (21.0-32.0) mmol/L Anion Gap 16.1 BUN 54.0 H (7.0-18.0) mg/dL Creatinine 2.27 H (0.55-1.02) mg/dL Est GFR ( Amer) 25 L (>=60 mL/min/1.73m^2) Est GFR (Non-Af Amer) 21 L (>=60 mL/min/1.73m^2) BUN/Creatinine Ratio 23.8 Glucose 112 H (74-106) mg/dL Calcium 9.2 (8.5-10.1) mg/dL Total Bilirubin 0.5 (0.2-1.0) mg/dL AST 45 H (15-37) U/L ALT 66 H (14-59) U/L Alkaline Phosphatase 80 (46-116) U/L Troponin I High Sens 14.9 (4.0-51.3) pg/mL Total Protein 8.0 (6.4-8.2) g/dL Albumin 3.9 (3.4-5.0) g/dL Globulin 4.1 g/dL Albumin/Globulin Ratio 1.0 Discharge Plan Discharge Chief Complaint: Altered Mental Status Clinical Impression: Muscular deconditioning, Hypertension, uncontrolled Patient Disposition: Home, Self-Care Time of Disposition Decision: 16:48 Condition: Good Prescriptions / Home Meds: New losartan 50 mg tablet 50 mg PO DAILY Qty: 10 0RF Discontinued hydrocodone-acetaminophen 7.5-325 mg tablet 1 tab PO Q8H PRN (Reason: PAIN 7-10) 3 Days Qty: 9 0RF No Action Eliquis 5 mg tablet 5 mg PO BID baclofen 10 mg tablet 10 mg PO DAILY@1400 dapagliflozin propanediol [Farxiga] 10 mg tablet 10 mg PO DAILY ferrous sulfate [Feosol] 325 mg (65 mg iron) tablet 325 mg PO DAILY lamotrigine 150 mg tablet 150 mg PO DAILY escitalopram oxalate [Lexapro] 10 mg tablet 10 mg PO DAILY multivitamin with iron Tablet 1 tab PO DAILY pantoprazole 40 mg tablet,delayed release (DR/EC) 40 mg PO DAILY polyethylene glycol 3350 [Miralax] 17 gram powder in packet 17 g PO DAILY PRN (Reason: laxative) potassium chloride 10 mEq tablet extended release 10 meq PO BID tamsulosin 0.4 mg capsule 0.4 mg PO .QHS baclofen 20 mg tablet 20 mg PO QAM donepezil [Aricept] 10 mg tablet 10 mg PO .QHS furosemide 20 mg tablet 60 mg PO DAILY olanzapine 15 mg tablet 15 mg PO .QHS venlafaxine [Effexor XR] 150 mg capsule,extended release 24hr 150 mg PO DAILY acetaminophen 325 mg capsule 650 mg PO Q6H PRN (Reason: pain) spironolactone 25 mg tablet 12.5 mg PO DAILY Qty: 30 0RF clonazepam 0.5 mg tablet 0.5 mg PO TID carvedilol 12.5 mg Tablet 12.5 mg PO BID Qty: 30 0RF sennosides-docusate sodium [Senna Plus] 8.6-50 mg Tablet 2 tab PO QD 3 Days Qty: 6 0RF levofloxacin 500 mg Tablet 250 mg PO QD 4 Days Qty: 4 0RF fentanyl 50 mcg/hr patch 72 hour 1 patch transdermal Q72H 3 Days Qty: 1 0RF Print Language: Wolof Instructions: Chronic Hypertension (DC) Additional Instructions: Please decrease sedating medication and stop hydrocodone if possible The patient also to be ambulated out of the bed to the bedside commode when possible at the patient is requesting that and she was able to do it in the ER but with help The patient had her losartan increased from 25 to 50 mg and is informed Referrals: Benjamín Navarrete MD [Primary Care Provider, Family Practice] - 1 week
[2025-02-21] MEDS: 0.9 % SODIUM CHLORIDE 1,000 ML 500 ML IV (15:47)
[2025-02-21 16:18] LABS: Band Neutrophils Absolute 0.1 10^3/uL (0.0-0.3); Basophils Abs Manual 0.00 10^3/uL (0.00-0.10); Basophils Percent Manual 0.0 % (0.2-2.0); Eosinophils Absolute Manual 0.00 10^3/uL (0.00-0.70); Eosinophils Percent Manual 0.0 % (0.9-7.0); Lymphocytes Absolute Manual 0.63 10^3/uL (1.20-3.80); Lymphocytes Percent Manual 6.0 % (20.5-60.0); Monocytes Absolute Manual 0.73 10^3/uL (0.30-0.80); Monocytes Percent Manual 7.0 % (1.7-12.0); Segmented Neut Absolute Manual 9.03 10^3/uL (1.4-6.5); Segmented Neutrophils % Manual 86.0 (43.0-75.0)
[2025-02-21] MEDS: LOSARTAN POTASSIUM 25 MG TABLET PO (16:55)
== END 2025-02-21 17:56 | disposition home or self-care (01) ==
PROVIDERS: Emergency Provider Emergency Medicine; PCP Family Medicine
DX: I13.0 Hypertensive heart and chronic kidney disease with heart failure and stage 1 through stage 4 chronic kidney disease, or unspecified chronic kidney disease (principal); M62.50 Muscle wasting and atrophy, not elsewhere classified, unspecified site; R53.1 Weakness; N18.9 Chronic kidney disease, unspecified; I50.9 Heart failure, unspecified; Z79.899 Other long term (current) drug therapy; Z86.16 Personal history of COVID-19
CPT/HCPCS: 36415; 70450; 71045; 80053; 84484; 85007; 85027; 87086; 93005; 96374; 99285; J0360

== ENCOUNTER 2025-02-21 19:29 | Emergency (ER) | payer MEDICARE, OTHER, MEDICAID, SELFPAY ==
--- NOTE | 2025-02-21 19:42 | ED.GENADUL1 ---
Documented by User: JAIDA VILLASENOR 02/22/25 12:16 HPI HPI - General Adult General Stated complaint: Cardiac Arrest/CPR Time Seen by Provider: 02/21/25 19:38 History of Present Illness HPI narrative: see MDM Related Data Home Medications ?Medication ?Instructions ?Recorded ?Confirmed apixaban 5 mg tablet (Eliquis) 5 mg PO BID 11/15/22 02/09/25 baclofen 10 mg tablet 10 mg PO DAILY@1400 11/15/22 02/09/25 dapagliflozin propanediol 10 mg 10 mg PO DAILY 11/15/22 02/09/25 tablet (Farxiga) escitalopram oxalate 10 mg tablet 10 mg PO DAILY 11/15/22 02/09/25 (Lexapro) ferrous sulfate 325 mg (65 mg 325 mg PO DAILY 11/15/22 02/09/25 iron) tablet (Feosol) lamotrigine 150 mg tablet 150 mg PO DAILY 11/15/22 02/09/25 multivitamin with iron 1 tab PO DAILY 11/15/22 02/09/25 pantoprazole 40 mg tablet,delayed 40 mg PO DAILY 11/15/22 02/09/25 release polyethylene glycol 3350 17 gram 17 g PO DAILY PRN laxative 11/15/22 02/08/25 oral powder packet (Miralax) potassium chloride 10 mEq 10 meq PO BID 11/15/22 02/09/25 tablet,extended release tamsulosin 0.4 mg capsule 0.4 mg PO .QHS 11/15/22 02/09/25 baclofen 20 mg tablet 20 mg PO QAM 11/16/22 02/09/25 acetaminophen 325 mg capsule 650 mg PO Q6H PRN pain 04/02/24 02/08/25 donepezil 10 mg tablet (Aricept) 10 mg PO .QHS 04/02/24 02/09/25 furosemide 20 mg tablet 60 mg PO DAILY 04/02/24 02/09/25 olanzapine 15 mg tablet 15 mg PO .QHS 04/02/24 02/09/25 venlafaxine 150 mg 150 mg PO DAILY 04/02/24 02/09/25 capsule,extended release 24 hr (Effexor XR) clonazepam 0.5 mg tablet 0.5 mg PO TID 02/09/25 02/09/25 Previous Rx's ?Medication ?Instructions ?Recorded spironolactone 25 mg tablet 12.5 mg (1/2 x 25 mg) PO DAILY #30 01/10/25 tabs carvedilol 12.5 mg tablet 12.5 mg PO BID #30 tabs 02/11/25 fentanyl 50 mcg/hr transdermal 1 patch transdermal Q72H 3 days #1 02/11/25 patch ea levofloxacin 500 mg tablet 250 mg (1/2 x 500 mg) PO QD 4 days 02/11/25 #4 tabs sennosides 8.6 mg-docusate sodium 2 tab PO QD 3 days #6 tabs 02/11/25 50 mg tablet (Senna Plus) losartan 50 mg tablet 50 mg PO DAILY #10 tabs 02/21/25 Allergies Allergy/AdvReac Type Severity Reaction Status Date / Time cephalexin Allergy Unknown Verified 02/21/25 14:25 Opioid HPI Opioid Management Most Recent Opioid Data: Last Pain Scale 5 02/11/25, 10:31 Last ORT Total Score 0 02/09/25, 00:41 Last ORT Risk Category Low Risk 02/09/25, 00:41 [facility] Medical History (Updated 02/21/25 @ 16:48 by Geri Dennis MD) Chronic venous stasis dermatitis of lower extremity ?I87.2 - Venous insufficiency (chronic) (peripheral) (ICD-10) History of atrial fibrillation ?Z86.79 - Personal history of other diseases of the circulatory system (ICD-10) Urinary retention ?R33.9 - Retention of urine, unspecified (ICD-10) CKD (chronic kidney disease), stage IV ?N18.4 - Chronic kidney disease, stage 4 (severe) (ICD-10) Multifactorial functional impairment ?R53.81 - Other malaise (ICD-10) Acute UTI ?N39.0 - Urinary tract infection, site not specified (ICD-10) Chronic anticoagulation ?Z79.01 - exterminator termite (current) use of anticoagulants (ICD-10) Obesity ?E66.9 - Obesity, unspecified (ICD-10) Acute hypoxic respiratory failure ?J96.01 - Acute respiratory failure with hypoxia (ICD-10) Atrial fibrillation ?I48.91 - Unspecified atrial fibrillation (ICD-10) Venous ulcer ?I83.009 - Varicose veins of unspecified lower extremity with ulcer of unspecified site (ICD-10) ?L97.909 - Non-pressure chronic ulcer of unspecified part of unspecified lower leg with unspecified severity (ICD-10) Bipolar disorder ?F31.9 - Bipolar disorder, unspecified (ICD-10) 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 - Syndrome of inappropriate secretion of antidiuretic hormone (ICD-10) Hyponatremia ?E87.1 - Hypo-osmolality and hyponatremia (ICD-10) Bronchitis ?J40 - Bronchitis, not specified as acute or chronic (ICD-10) Knee effusion ?M25.469 - Effusion, unspecified knee (ICD-10) Gastrointestinal hemorrhage ?K92.2 - Gastrointestinal hemorrhage, unspecified (ICD-10) Venous insufficiency ?I87.2 - Venous insufficiency (chronic) (peripheral) (ICD-10) Hypomagnesemia ?E83.42 - Hypomagnesemia (ICD-10) Acute kidney failure ?N17.9 - Acute kidney failure, unspecified (ICD-10) UTI (urinary tract infection) ?N39.0 - Urinary tract infection, site not specified (ICD-10) Cellulitis ?L03.90 - Cellulitis, unspecified (ICD-10) Encephalopathy ?G93.40 - Encephalopathy, unspecified (ICD-10) Venous ulcer of right leg ?I83.019 - Varicose veins of right lower extremity with ulcer of unspecified site (ICD-10) ?L97.919 - Non-pressure chronic ulcer of unspecified part of right lower leg with unspecified severity (ICD-10) Venous ulcer of left leg ?I83.029 - Varicose veins of left lower extremity with ulcer of unspecified site (ICD-10) ?L97.929 - Non-pressure chronic ulcer of unspecified part of left lower leg with unspecified severity (ICD-10) GERD (gastroesophageal reflux disease) ?K21.9 - Gastro-esophageal reflux disease without esophagitis (ICD-10) Paroxysmal A-fib ?I48.0 - Paroxysmal atrial fibrillation (ICD-10) Myocardial infarction ?I21.9 - Acute myocardial infarction, unspecified (ICD-10) Bipolar 1 disorder, manic, mild ?F31.11 - Bipolar disorder, current episode manic without psychotic features, mild (ICD-10) Vitamin D deficiency ?E55.9 - Vitamin D deficiency, unspecified (ICD-10) CKD (chronic kidney disease) stage 2, GFR 60-89 ml/min ?N18.2 - Chronic kidney disease, stage 2 (mild) (ICD-10) Shock therapy as the cause of abnormal reaction of patient or of later complication without misadventure at time of procedure ?Y84.3 - Shock therapy as the cause of abnormal reaction of the patient, or of later complication, without mention of misadventure at the time of the procedure (ICD-10) Normal colonoscopy Hematoma of lower leg ?S80.10XA - Contusion of unspecified lower leg, initial encounter (ICD-10) HTN (hypertension) ?I10 - Essential (primary) hypertension (ICD-10) Sarcoidosis ?D86.9 - Sarcoidosis, unspecified (ICD-10) Seizures ?R56.9 - Unspecified convulsions (ICD-10) Anemia ?D64.9 - Anemia, unspecified (ICD-10) Arthritis ?M19.90 - Unspecified osteoarthritis, unspecified site (ICD-10) Surgical History Hx of tonsillectomy ?Z90.89 - Acquired absence of other organs (ICD-10) H/O exploratory laparotomy ?Z98.890 - Other specified postprocedural states (ICD-10) Family History Mother Family history of cancer Social History Within the past year, how often did you have a drink containing alcohol: never Score interpretation: A score less than 3 is consistent with normal alcohol consumption. Smoking status: Never smoker Non-prescribed substance use: denies use Highest level of school completed/degree received: high school graduate Little interest or pleasure in doing things: not at all Feeling down, depressed, or hopeless: not at all Exam Narrative Exam Narrative: see MDM Medical Decision Making MDM Narrative Medical decision making narrative: Patient: 74-year-old female Source: [facility] Presenting Complaint: Full cardiac arrest HPI: 74-year-old female brought to the ED from [facility] in full cardiac arrest. According to EMS, alf staff, and a roommate, the patient was found with difficulty breathing and ?blue around the mouth? just prior to arrest. Estimated downtime prior to EMS arrival was 15 minutes, and the patient received 1 shock from an AED at the alf per report from staff. Rhythm on EMS arrival to facility was PEA and en route became asystole. Otherwise no additional information from the alf at the time. Notably, the patient had been seen in the ED earlier today for COVID-19 infection and general weakness, at which time she was alert, oriented, and ambulatory. Imaging at that visit (CXR and head CT) and workup was unremarkable Upon arrival to the ED, patient was already intubated. quality assurance monitor final showed asystole. Breath sounds were equal and lungs easily ventilated with an Ambu bag. Six doses of epinephrine were administered at appropriate intervals per ACLS protocol (see nursing code sheet for timing). Despite resuscitative efforts, patient remained in asystole in the ED. Total downtime was approximately 47 minutes. Exam / ED Findings/course: Airway: Intubated, ventilated via Ambu bag, breath sounds equal bilaterally Cardiac: Asystole on monitor, no palpable pulses radial, caritod, and femoral. Neuro: Unresponsive, no spontaneous movement, Pupils fixed and dilated. Other: No additional trauma noted MDM / Resuscitation Summary: 74-year-old female in prolonged cardiac arrest (~47 minutes) with history of recent COVID-19 and prior ED evaluation showing no acute pathology. Initial rhythm PEA after AED shock; progressed to asystole in ED en route to ER. ACLS measures implemented including epinephrine administration x 6, CPR by lifepack device, airway management, and continuous cardiac monitoring. Despite maximal resuscitative efforts, patient did not regain ROSC. Etiology likely multifactorial, including COVID-19 infection, hypoxia, and underlying comorbidities. Disposition / Plan: Patient remains in asystole in ED Resuscitation efforts documented per code sheet Dr. Weaver, ED attending, at bedside and participated in resuscitation efforts and pronouncement of time of . Time of was 193 Medical Records Medical records reviewed: Yes I reviewed the patient's medical records Lab Data Lab results reviewed: Yes I reviewed the patient's lab results Lab results narrative: Results from previous visit today were reviewed. Discharge Plan Discharge Patient Disposition: Date/Time: 02/21/25 19:38 Discharge Date/Time: 02/21/25 21:27 Probable Cause of Probable Cause of : Cardiac arrest Documented by User: Speedy Weaver MD 02/22/25 19:48 HPI HPI - General Adult General Stated complaint: Cardiac Arrest/CPR Time Seen by Provider: 02/21/25 19:38 Related Data Home Medications ?Medication ?Instructions ?Recorded ?Confirmed apixaban 5 mg tablet (Eliquis) 5 mg PO BID 11/15/22 02/09/25 baclofen 10 mg tablet 10 mg PO DAILY@1400 11/15/22 02/09/25 dapagliflozin propanediol 10 mg 10 mg PO DAILY 11/15/22 02/09/25 tablet (Farxiga) escitalopram oxalate 10 mg tablet 10 mg PO DAILY 11/15/22 02/09/25 (Lexapro) ferrous sulfate 325 mg (65 mg 325 mg PO DAILY 11/15/22 02/09/25 iron) tablet (Feosol) lamotrigine 150 mg tablet 150 mg PO DAILY 11/15/22 02/09/25 multivitamin with iron 1 tab PO DAILY 11/15/22 02/09/25 pantoprazole 40 mg tablet,delayed 40 mg PO DAILY 11/15/22 02/09/25 release polyethylene glycol 3350 17 gram 17 g PO DAILY PRN laxative 11/15/22 02/08/25 oral powder packet (Miralax) potassium chloride 10 mEq 10 meq PO BID 11/15/22 02/09/25 tablet,extended release tamsulosin 0.4 mg capsule 0.4 mg PO .QHS 11/15/22 02/09/25 baclofen 20 mg tablet 20 mg PO QAM 11/16/22 02/09/25 acetaminophen 325 mg capsule 650 mg PO Q6H PRN pain 04/02/24 02/08/25 donepezil 10 mg tablet (Aricept) 10 mg PO .QHS 04/02/24 02/09/25 furosemide 20 mg tablet 60 mg PO DAILY 04/02/24 02/09/25 olanzapine 15 mg tablet 15 mg PO .QHS 04/02/24 02/09/25 venlafaxine 150 mg 150 mg PO DAILY 04/02/24 02/09/25 capsule,extended release 24 hr (Effexor XR) clonazepam 0.5 mg tablet 0.5 mg PO TID 02/09/25 02/09/25 Previous Rx's ?Medication ?Instructions ?Recorded spironolactone 25 mg tablet 12.5 mg (1/2 x 25 mg) PO DAILY #30 01/10/25 tabs carvedilol 12.5 mg tablet 12.5 mg PO BID #30 tabs 02/11/25 fentanyl 50 mcg/hr transdermal 1 patch transdermal Q72H 3 days #1 02/11/25 patch ea levofloxacin 500 mg tablet 250 mg (1/2 x 500 mg) PO QD 4 days 02/11/25 #4 tabs sennosides 8.6 mg-docusate sodium 2 tab PO QD 3 days #6 tabs 02/11/25 50 mg tablet (Senna Plus) losartan 50 mg tablet 50 mg PO DAILY #10 tabs 02/21/25 Allergies Allergy/AdvReac Type Severity Reaction Status Date / Time cephalexin Allergy Unknown Verified 02/21/25 14:25 Opioid HPI Opioid Management Most Recent Opioid Data: Last Pain Scale 5 02/11/25, 10:31 Last ORT Total Score 0 02/09/25, 00:41 Last ORT Risk Category Low Risk 02/09/25, 00:41 [facility] Medical History (Updated 02/21/25 @ 16:48 by Geri Dennis MD) Chronic venous stasis dermatitis of lower extremity ?I87.2 - Venous insufficiency (chronic) (peripheral) (ICD-10) History of atrial fibrillation ?Z86.79 - Personal history of other diseases of the circulatory system (ICD-10) Urinary retention ?R33.9 - Retention of urine, unspecified (ICD-10) CKD (chronic kidney disease), stage IV ?N18.4 - Chronic kidney disease, stage 4 (severe) (ICD-10) Multifactorial functional impairment ?R53.81 - Other malaise (ICD-10) Acute UTI ?N39.0 - Urinary tract infection, site not specified (ICD-10) Chronic anticoagulation ?Z79.01 - exterminator termite (current) use of anticoagulants (ICD-10) Obesity ?E66.9 - Obesity, unspecified (ICD-10) Acute hypoxic respiratory failure ?J96.01 - Acute respiratory failure with hypoxia (ICD-10) Atrial fibrillation ?I48.91 - Unspecified atrial fibrillation (ICD-10) Venous ulcer ?I83.009 - Varicose veins of unspecified lower extremity with ulcer of unspecified site (ICD-10) ?L97.909 - Non-pressure chronic ulcer of unspecified part of unspecified lower leg with unspecified severity (ICD-10) Bipolar disorder ?F31.9 - Bipolar disorder, unspecified (ICD-10) 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 - Syndrome of inappropriate secretion of antidiuretic hormone (ICD-10) Hyponatremia ?E87.1 - Hypo-osmolality and hyponatremia (ICD-10) Bronchitis ?J40 - Bronchitis, not specified as acute or chronic (ICD-10) Knee effusion ?M25.469 - Effusion, unspecified knee (ICD-10) Gastrointestinal hemorrhage ?K92.2 - Gastrointestinal hemorrhage, unspecified (ICD-10) Venous insufficiency ?I87.2 - Venous insufficiency (chronic) (peripheral) (ICD-10) Hypomagnesemia ?E83.42 - Hypomagnesemia (ICD-10) Acute kidney failure ?N17.9 - Acute kidney failure, unspecified (ICD-10) UTI (urinary tract infection) ?N39.0 - Urinary tract infection, site not specified (ICD-10) Cellulitis ?L03.90 - Cellulitis, unspecified (ICD-10) Encephalopathy ?G93.40 - Encephalopathy, unspecified (ICD-10) Venous ulcer of right leg ?I83.019 - Varicose veins of right lower extremity with ulcer of unspecified site (ICD-10) ?L97.919 - Non-pressure chronic ulcer of unspecified part of right lower leg with unspecified severity (ICD-10) Venous ulcer of left leg ?I83.029 - Varicose veins of left lower extremity with ulcer of unspecified site (ICD-10) ?L97.929 - Non-pressure chronic ulcer of unspecified part of left lower leg with unspecified severity (ICD-10) GERD (gastroesophageal reflux disease) ?K21.9 - Gastro-esophageal reflux disease without esophagitis (ICD-10) Paroxysmal A-fib ?I48.0 - Paroxysmal atrial fibrillation (ICD-10) Myocardial infarction ?I21.9 - Acute myocardial infarction, unspecified (ICD-10) Bipolar 1 disorder, manic, mild ?F31.11 - Bipolar disorder, current episode manic without psychotic features, mild (ICD-10) Vitamin D deficiency ?E55.9 - Vitamin D deficiency, unspecified (ICD-10) CKD (chronic kidney disease) stage 2, GFR 60-89 ml/min ?N18.2 - Chronic kidney disease, stage 2 (mild) (ICD-10) Shock therapy as the cause of abnormal reaction of patient or of later complication without misadventure at time of procedure ?Y84.3 - Shock therapy as the cause of abnormal reaction of the patient, or of later complication, without mention of misadventure at the time of the procedure (ICD-10) Normal colonoscopy Hematoma of lower leg ?S80.10XA - Contusion of unspecified lower leg, initial encounter (ICD-10) HTN (hypertension) ?I10 - Essential (primary) hypertension (ICD-10) Sarcoidosis ?D86.9 - Sarcoidosis, unspecified (ICD-10) Seizures ?R56.9 - Unspecified convulsions (ICD-10) Anemia ?D64.9 - Anemia, unspecified (ICD-10) Arthritis ?M19.90 - Unspecified osteoarthritis, unspecified site (ICD-10) Surgical History Hx of tonsillectomy ?Z90.89 - Acquired absence of other organs (ICD-10) H/O exploratory laparotomy ?Z98.890 - Other specified postprocedural states (ICD-10) Family History Mother Family history of cancer Social History Within the past year, how often did you have a drink containing alcohol: never Score interpretation: A score less than 3 is consistent with normal alcohol consumption. Smoking status: Never smoker Non-prescribed substance use: denies use Highest level of school completed/degree received: high school graduate Little interest or pleasure in doing things: not at all Feeling down, depressed, or hopeless: not at all Medical Decision Making ECG Data Attestation: I personally reviewed and interpreted this ECG as follows: (I was present in the room during the code and supervised the PA then entire time until the code was called. Dr Weaver) Discharge Plan Discharge Patient Disposition: Date/Time: 02/21/25 19:38 Discharge Date/Time: 02/21/25 21:27 Probable Cause of Probable Cause of : Cardiac arrest
--- OUTSIDE RECORDS SUMMARY | 2025-02-21 19:55 | XMS_ITS | Encounter Summary ---
Author Organization [facility] Address [address] [place] [address] Care Team Providers Care Central Lab Technician Name Role Phone Unavailable Primary Care Provider Unavailabl e Encounter Details Date Type Department Care Team (Late st Contact Info) Description 06/11/2021 Abstract PATIENT ACUITY SCORE Social History Tobacco Use Types Packs/Day Years Used Date Smoking Tobacco: Never Assessed Comments Unknown Sex and Gender Information Value Date Recorded Sex Assigned at Not on file Legal Sex Female 10:04 AM EST Gender Identity Not on file Sexual Orientation Not on file documented as of this encounter Plan of Treatment Not on file documented as of this encounter Visit Diagnoses Not on filedocumented in this encounter
--- OUTSIDE RECORDS SUMMARY | 2025-02-21 19:55 | XMS_ITS | Clinical Summary ---
Author Organization [facility] Address [address] [facility] [place] [address] Care Team Providers Care Clip Loading Machine Adjuster Name Role Phone Unavailable Primary Care Provider Unavailabl e Source Comments The following information is NOT included in Care Everywhere downloads:Psychiatric notes, ECG results, Cardiac Rehab notes, Pulmonary Function notes, data from Smart[employer] (includes but not limited toPregnancy data,audiograms, eye exams, pre-surgical evaluation notes, well-child exam data).[facility] Immunizations Immunization Administration Dates Next Due DTP (CVX=01) 04/20/2021 Influenza, injectable, adjuv anted, quadrivalent, preservative free (EQH=435) 03/29/2021 Influenza, injectable, high dose seasonal, trivalent, preservative free (YQH=695) 03/18/2019,02/17/2018,03/12/2017,02/23 Influenza, injectable, high- dose seasonal, quadrivalent, preservative free (DDK=275) 03/11/2022 Influenza, injectable, quadr ivalent, preservative (VTI=002) 03/12/2018 Influenza, unspecified formu lation (CVX=88) 03/03/2020 Pfizer Monovalent (12+ yrs) SARS-COV-2 (COVID-19) vaccine, mRNA, spike protein, LNP, pres. free, 30 mcg/0.3mL dose (NII=300) 07/13/2020,06/19/2020 Pneumococcal conjugate 13 va lent (PCV13) (HSX=974) 04/26/2017 Pneumococcal polysaccharide 23 Valent (PPSV23) (CVX=33) 05/03/2019,04/12/2017 Zoster Live (ZVL,Shingles) (TYX=350) 04/21/2015, 03/25/2013 Zoster Recombinant (RZV,Gamino gles) (XZK=112) 01/05/2021,11/04/2020 Social History Tobacco Use Types Packs/Day [...] 1-d ose 75+ series) 2023 COVID-19 Vaccine (2024-2 6 season) 2025 03/11/2022, 09/10/2021, 03/15/2021, Additional history exists Influenza Vaccine (#1) 2025 2, 03/29/2021, 03/03/2020, Additional history exists Pneumococcal Vaccine(s) (50+ yrs) Completed 05/03/2019, 04/26/2017, 04/12/2017 Shingles (RZV) Vaccine Completed , 11/04/2020, 04/21/2015, Additional history exists Pap Smear Discontinued Insurance [employer]
--- OUTSIDE RECORDS SUMMARY | 2025-02-21 19:55 | XMS_ITS | Clinical Summary ---
Author Organization [facility] Address [address] [place] [address] Care Team Providers Care Engineering Faculty Name Role Phone Benjamín Navarrete MD Primary Care Provider [phone] Allergies Active Allergy Reactions Criticality Noted Date [...] April 30, 2022. 30 tablet 2 Active Additional Information Patient not taking.Reported on 12/31/2024 lamoTRIgine (LaMICtal) 150 mg tabletIndication s:Bipolar affective disorder, currently depressed, mild (CMS/HCC),Anxiet y and depression Take 1 tablet (150 mg) by mouth in the morning. Do not start before April 30, 2022. 30 tablet 2 Active losartan (Cozaar) 25 mg tabletIndication s:HFrEF (heart failure with reduced ejection fraction) (CMS/HCC),Crespo ry artery disease involving iliamna coronary artery of iliamna heart without angina pectoris Take 1 tablet [...] the morning. 30 tablet 11 2 Active escitalopram (Lexapro) 10 mg tablet Take 10 mg by mouth. 3 Active apixaban (Eliquis) 5 mg tabletIndication s:Paroxysmal atrial fibrillation (CMS/HCC) Take 1 tablet (5 mg) by mouth in the morning and at bedtime. 180 tablet 3 3 Active HYDROcodone-acet aminophen (Republic) 7.5-325 mg tablet 3 Active donepezil (Aricept) 10 mg tablet 3 Active fentaNYL (Duragesic) 50 mcg/hr 1 patch to skin Transdermal q 72 hours for 30 days 3 Active venlafaxine XR (Effexor-XR) 150 mg 24 hr capsule Take 150 mg by mouth in the morning. 4 Active multivitamin tablet Take 1 tablet by [...] 750 mg by mouth in the morning. 5 Active amiodarone (Pacerone) 200 mg tabletIndication s:Paroxysmal atrial fibrillation (CMS/HCC) Take 2 tablets (400 mg) by mouth two times daily for 14 days, THEN 1 tablet (200 mg) once daily as directed. 146 tablet 5 04/27/20 25 Active Active Problems Problem Noted Date Diagnosed Date Chronic venous stasis dermatitis of both lower e xtremities 05/21/2024 Leukocytosis 05/21/2024 HFrEF (heart failure with reduced ejection fract ion) 04/27/2022 Cellulitis of right lower extremity 04/24/2022 Closed fracture of pelvis with nonunion 04/24/20 22 NSTEMI (non-ST elevated myocardial infarction) 1 06/24/2021 Acute encephalopathy 04/23/2022 Coronary artery disease invo lving iliamna coronary artery of iliamna heart without angina pectoris 04/23/2022 Sinus node [...] Department Care Team Description 01/13/2025 Orders Only [facility] [address] [place] [address] Esthela Couch MA Paroxysmal atrial fibrillation (CMS/HCC) 12/31/2024 10:45 AM EDT Office Visit [facility] [address] [place] [id number] Enoch Lange MD Persistent atrial fibrillation (CMS/HCC) (Primary Dx) 12/31/2024 10:15 AM EDT Ancillary Procedure [facility] [address] [place] [id number] Encounter for implantable defibrillator reprogramming or check 12/31/2024 Orders Only [facility] [address] [place] [address] Ivet Salvador MA Paroxysmal atrial fibrillation (CMS/HCC) (Primary Dx) 12/23/2024 4:35 AM EDT Ancillary Procedure [facility] [address] [place] [address] Adjustment and management of cardiac pacemaker 12/23/2024 Orders Only [facility] [address] [place] [phone] Enoch Lange MD from Last 3 Months [...] Risk Screening 2013 COVID-19 Vaccine ( season) 2025 03/11/2022, 09/10/2021, 09/10/2021, Additional history exists Influenza Vaccine (#1) 2025 , 03/11/2022, 03/29/2021, Additional history exists Mammogram Discontinued 10/02/2018 Zoster Vaccines Completed 01/05/2021, 10/11, 04/21/2015, Additional history exists Pneumococcal Vaccine: 50+ [...] (01/06/2025 10:55 AM EDT) BSA 2.28 m2 [facility] Enoch Lange MD CV IMPLANTABLE CARDIAC DEVICE FL OCEDURES Final Result CPACS * CARDIAC DEVICE CHECK - IN CLINIC - PACEMAKER DUAL CHAMBER W/ PROG (01/03/2025 9:46 AM EDT) BSA 2.28 m2 GE PACS CARDIO Anatomical Region Laterality Modality Other [...] Enoch Lange MD CV IMPLANTABLE CARDIAC DEVICE FL OCEDURES Final Result * ECG 12 lead (12/31/2024 4:43 PM EDT) Nacho Cao MD ECG ORDERABLES Final Res ult * Cardiac device check - Remote pacemaker (12/23/2024 12:00 AM EDT) Anatomical Region Laterality Modality Other 12/23/2024 Enoch Lange MD CV IMPLANTABLE CARDIAC DEVICE FL OCEDURES Final Result from Last 3 Months Insurance MEDICARE [employer] [place] Advance Directives * Full Code (Latest Code Status on File) Date Activated Date Inactivated Comments 04/23/2022 9:18 PM 04/29/2022 11:01 PM Care Teams Engineering Faculty Relationship Specialty Start Date End Date Benjamín Navarrete MD [address] [facility] [place] [address] PCP - General 05/23/22
--- OUTSIDE RECORDS SUMMARY | 2025-02-21 19:55 | XMS_ITS | Encounter Summary ---
Author Organization [facility] Address [address] [place] [address] Care Team Providers Care Terrazzo Tile Maker Name Role Phone Benjamín Navarrete MD Primary Care Provider [phone] Encounter Details Date Type Department Care Team (Late st Contact Info) Description 12/23/2024 Orders Only [facility] [address] [place] [address] Enoch Lange MD [address] [place] [address] Social History Tobacco Use Types Packs/Day Years [...] Enoch Lange MD CV IMPLANTABLE CARDIAC DEVICE [place] OCEDURES Final Result documented in this encounter Visit Diagnoses Not on filedocumented in this encounter Care Teams Terrazzo Tile Maker Relationship Specialty Start Date End Date Benjamín Navarrete MD [address] [facility] [place] [address] PCP - General 05/23/22 documented as of this encounter
--- OUTSIDE RECORDS SUMMARY | 2025-02-21 19:55 | XMS_ITS | Clinical Summary ---
Author Organization [facility] Address [address] [place], [place] [id number] Care Team Providers Care Hydro Plant Technician Name Role Phone Benjamín Navarrete MD Primary Care Provider [phone] Allergies Active Allergy Reactions Criticality Noted Date [...] 06/12/2024 Influenza Vaccine (#1) 2025 Insurance MEDICARE [facility] Care Teams Hydro Plant Technician Relationship Specialty Start Date End Date Benjamín Navarrete MD PCP - General Family Medicine 11/01/13
--- OUTSIDE RECORDS SUMMARY | 2025-02-21 19:57 | XMS_ITS | CCD ---
Author Organization [facility] Care Team Providers Care Grails Web Application Developer Name Role Phone ROBERTA VELA Admitting Unavailable [...] JANINE ., DR DORADO Primary Care Unavailable [place], DR RISHABH Martin Consulting Unavailable LEÓN DIAS Consulting Unavailable Arthur OLIVER, Ирина Loya Attending Unavailable Arthur OLIVER, Ирина Loya Attending Unavailable Arthur OLIVER, Ирина Loya Attending Unavailable Arthur OLIVER, Ирина Loya Attending Unavailable Ave Mehta MD Primary Care Provider Beti Ham MD Attending Provider Jarrod Mahajan Attending Unavailable Jarrod Mahajan Admitting Unavailable [place], Marino Consulting Unavailable [place], Marino Consulting Unavailable [place], Marino Consulting Unavailable [place], Marino Consulting Unavailable [place], Marino Consulting Unavailable [place], [place] Consulting Unavailable [place], Marino Consulting Unavailable [place], Marino Consulting Unavailable [place], Marino Consulting Unavailable [facility], XXXX Consulting Unavailable [facility], [facility]X Consulting Unavailable Jarrod Mahajan Admitting Unavailable Jarrod Mahajan Attending Unavailable ENOCH FRANKEL Referring Unavailable ENOCH FRANKEL Attending Unavailable ENOCH FRANKEL Referring Unavailable JOSTIN, ENOCH Attending Unavailable ENOCH FRANKEL Referring Unavailable JOSTIN, ENOCH Referring Unavailable JOSTIN, ENOCH Referring Unavailable Ave Mehta MD Primary Care Provider Kristen White DO Attending Provider Leonie Weaver MD Attending Provider [phone] Ave Mehta Primary Care Unavailable Leonie Weaver Attending Unavailable Leonie Weaver Admitting Unavailable Beti Ham Attending Unavailable Beti Ham Admitting Unavailable Ave Mehta Primary Care Unavailable Allergies Allergy Classification Reported Allergen(s) Allergy Type Date of Onset Reaction(s) Facility (6 sources) Dust; Translations: [Dust] Propensity to adverse reactions (disorder) [facility] Repository (6 sources) Pollen; Translations: [Pollen] Propensity to adverse reactions (disorder) [facility] Repository (1 source) Cephalexin; Translations: [CEPHALEXIN] Drug Allergy 4 [facility] Repository (1 source) house dust allergenic extract; Translations: [HOUSE DUST] Drug Allergy 4 [facility] Repository (1 source) Pollen; Translations: [POLLEN EXTRACTS] Propensity to adverse reactions to drug (disorder) 4 [facility] Repository Medications Current Medications Medication [...] region] Episodic Other aftercare (1 source) Other correction (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; Translations: [OTH RESIDENTIAL CURRENT DRUG THERAPY] Onset: 10-18-2022 Episodic Other [...] Resolved: 2 Episodic Other aftercare (1 source) long term 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 Normal [facility] Comment on above: Performed By: #### C UU #### [address] Strep pneumo Ag, Uron 2024 Body Fld Cult Not indicated. Invalid Interpretation Code [facility] Comment on above: Performed By: #### 4 [id number] #### [facility] [address] [place] [address] Note Bact Ag Cult Comment Invalid Interpretation Code [facility] Comment on above: Result Comment: Manjinder ege of [place] Pathologists standards require a culture to be performed on CSF specimens submitted for bacterial antigen testing. (CAP [id number]) Urine specimens will not be cultured. Performed at: [facility] [address] [place] [address] [id number] MD Dayron Pepper Performed By: #### 4 [id number] #### [facility] [address] [place] [address] Org ID S pneumo Not indicated. Invalid Interpretation Code [facility] Comment on above: Performed By: #### 4 [id number] #### [facility] [address] [place] [address] Spec Source S pneumo Urine Invalid Interpretation Code [facility] Comment on above: Performed By: #### 4 [id number] #### [facility] [address] [place] [address] Strep pneumo Ag Negative Invalid Interpretation Code Negative [facility] Comment on above: Performed By: #### 4 [id number] #### [facility] [address] [place] [address] U Legi Agon 01-16-2025 U Legion Ag Negative Invalid Interpretation Code Negative [facility] Comment on above: Result Comment: Pres umptive negative for L. pneumophila serogroup 1 antigen in urine, suggesting no recent or current infection. Legionnaires' disease cannot be ruled out since other serogroups and species may also cause disease. Performed at: [facility] [address] [place] [address] [id number] MD Dayron Pepper Performed By: #### 2 [id number] #### [facility] [address] [place] [address] BMPon 01-15-2025 Anion gap [Moles/Vol] 13 mmol/L Normal 6-16 [facility] Comment on above: Performed By: #### 2 [id number] #### [facility] [address] [place] [address] BUN/Creat Ratio 15 No Units Normal 10-20 [facility] Comment on above: Performed By: #### 2 [id number] #### [facility] [address] [place] [address] Calcium [Mass/Vol] 8.9 mg/dL Normal 8.9-11.1 [facility] Comment on above: Performed By: #### 2 490371 #### [facility] [address] [place] [address] Chloride [Moles/Vol] 102 mmol/L Normal 101-111 [facility] Comment on above: Performed By: #### 2 [id number] #### [facility] [address] [place] [address] CO2 [Moles/Vol] 29 mmol/L Normal 21-31 [facility] Comment on above: Performed By: #### 2 [id number] #### [facility] [address] [place] [address] Creatinine [Mass/Vol] 1.5 mg/dL High 0.5-1.3 [facility] Comment on above: Performed By: #### 2 [id number] #### [facility] [address] [place] [address] Glucose [Mass/Vol] 94 mg/dL Normal 55-199 [facility] Comment on above: Performed By: #### 2 [id number] #### [facility] [address] [place] [address] Potassium [Moles/Vol] 3.7 mmol/L Normal 3.5-5.3 [facility] Comment on above: Performed By: #### 2 451529 #### [facility] [address] [place] [address] Sodium [Moles/Vol] 140 mmol/L Normal 135-145 [facility] Comment on above: Performed By: #### 2 062358 #### [facility] [address] [place] [address] Urea nitrogen [Mass/Vol] 23 mg/dL High 5-21 [facility] Comment on above: Performed By: #### 2 098258 #### [facility] [address] [place] [address] CBC w/ Auto Diffon 5 Basophil Absolute 0.1 E9/L Normal 0.0-0.2 [facility] Comment on above: Performed By: #### 2 386342 #### [facility] [address] [place] [address] Basophils/100 WBC (Bld) 0.7 % Normal 0.0-2.0 [facility] Comment on above: Performed By: #### 2 383484 #### [facility] [address] [place] [address] Eos Absolute 0.9 E9/L High 0.0-0.5 [facility] Comment on above: Performed By: #### 2 383697 #### [facility] [address] [place] [address] Eosinophils/100 WBC (Bld) 7.0 % Normal 0.0-8.0 [facility] Comment on above: Performed By: #### 2 192307 #### [facility] [address] [place] [address] Erythrocyte distribution width (RBC) [Ratio] 14.1 % Normal 10.9-14.2 [facility] Comment on above: Performed By: #### 2 355406 #### [facility] [address] [place] [address] Hematocrit (Bld) [Volume fraction] 34.4 % Normal 34.0-46.0 [facility] Comment on above: Performed By: #### 2 169404 #### [facility] [address] [place] [address] Hemoglobin (Bld) [Mass/Vol] 11.7 g/dL Low 12.0-16.0 [facility] Comment on above: Performed By: #### 2 517801 #### [facility] [address] [place] [address] Lymph Absolute 0.9 E9/L Low 1.0-4.0 [facility] Comment on above: Performed By: #### 2 850209 #### [facility] [address] [place] [address] Lymphocytes/100 WBC (Bld) 7.1 % Low 14.0-50.0 [facility] Comment on above: Performed By: #### 2 [id number] #### [facility] [address] [place] [address] MCH (RBC) [Entitic mass] 34.1 pg High 27.0-34.0 [facility] Comment on above: Performed By: #### 2 358264 #### [facility] [address] [place] [address] MCHC (RBC) [Mass/Vol] 33.8 g/dL Normal 31.4-36.0 [facility] Comment on above: Performed By: #### 2 732788 #### [facility] [address] [place] [address] MCV (RBC) [Entitic vol] 100.7 fL High 80.0-100.0 [facility] Comment on above: Performed By: #### 2 395168 #### [facility] [address] [place] [address] [place] Absolute 1.0 E9/L Normal 0.2-1.[address] [facility] Comment on above: Performed By: #### 2 061258 #### [facility] [address] [place] [address] Monocytes/100 WBC (Bld) 8.5 % Normal 4.0-14.0 [facility] Comment on above: Performed By: #### 2 621207 #### [facility] [address] [place] [address] Neutro Absolute 9.4 E9/L High 2.0-7.5 [facility] Comment on above: Performed By: #### 2 561718 #### [facility] [address] [place] [address] Neutro Auto 76.7 % High 36.0-75.0 [facility] Comment on above: Performed By: #### 2 734609 #### [facility] [address] [place] [address] Platelet 195.0 E9/L Normal 150.0-500.0 [facility] Comment on above: Performed By: #### 2 707908 #### [facility] [address] [place] [address] Platelet mean volume (Bld) [Entitic vol] 7.8 fL Normal 6.4-10.8 [facility] Comment on above: Performed By: #### 2 662075 #### [facility] [address] [place] [address] RBC 3.4 E12/L Low 4.3-5.9 [facility] Comment on above: Performed By: #### 2 556818 #### [facility] [address] [place] [address] WBC 12.2 E9/L High 4.0-11.0 [facility] Comment on above: Performed By: #### 2 274033 #### [facility] [address] [place] [address] Inpatient Clinical Summaryon 01-15-2025 Inpatient Clinical Summary Inpatient Clinical Summary [address] [address] Clinical Summary Person Information: Name: LINDA NASCIMENTO Age: 74 Years : 1950 Sex: Female PCP: Ave Mehta MD Marital Status: Race: White Ethnicity: Non- or Language: Gambian Visit Id: Visit Reason: Potential stroke; Syncope/Near syncope; Weakness or fatigue; POSS STROKE Speciality: Acuity: Enc Type: Inpatient Med Service: Medical Arrival: 01/13/2025 13:01:29 Discharge: Dispo Type: Admitted as IP to this Hosp Address: [place] [place] [facility] [id number] Provider Notes: Diagnosis: 1:Sepsis; 2:Pneumonia; 3:Acute hypoxic [...] Physician: Jarrod Mahajan III, DO Consulting Physician: [facility] Wound, XXXX; Marino Roe MD Referring Physician: Follow up: With: Address: When: neurology Within 2 to 4 weeks Comments: call [phone] to scheduled an appt Patient Education Information: Normal [facility] Inpatient Patient Summaryon 01-15-2025 Inpatient Patient Summary Inpatient Patient Summary LINDA NASCIMENTO :1950 Visit Date:01/13/2025 Inpatient Discharge Instructions Your Care Team Admitting Physician - Jarrod Mahajan III, DO Consulting Physician - Marino Roe MD [facility] Wound, XXXX Reason for Your Visit pna [...] Within 2 to 4 weeks Comments: call [phone] to scheduled an appt Where: The Following [...] oral tablet) (more content not included)... Normal [facility] Inpatient Patient Summary Inpatient Patient Summary [place] [id number] Patient Discharge Instructions PERSON INFORMATION Name: LINDA [...] Within 2 to 4 weeks Comments: call [phone] to scheduled an appt In the event [...] every day. Last (more content not included)... [facility] Interdisciplinary Note - Antony e Manageron 01-15-2025 Interdisciplinary Note - Information And Data Architect Analyst Interdisciplinary Note - Information And Data Architect Analyst Plan remains for patient to return to her LTC facility at [facility] when medically stable. Updates provided to facility. Copy of IMM at bedside. CM to follow. [facility] Comment on above: Result Comment: Elec tronically [...] Locations R1: This test was performed at: [facility], [address] [place] [address], [phone] , [place], Normal [facility] Comment on above: Performed By: #### 1 [id number] #### [facility] [address] [place] [address] eGFRon 01-15-2025 eGFR 36 mL/min/1.73 m2 Low >=59 [facility] Comment on above: Performed By: #### 1 [id number] #### [facility] [address] [place] [address] CBC w/ Auto Diffon 5 Basophil Absolute 0.1 E9/L Normal 0.0-0.2 [facility] Comment on above: Performed By: #### 2 [id number] #### [facility] [address] [place] [address] Basophils/100 WBC (Bld) 0.5 % Normal 0.0-2.0 [facility] Comment on above: Performed By: #### 2 769806 #### [facility] [address] [place] [address] Eos Absolute 0.5 E9/L Normal 0.0-0.5 [facility] Comment on above: Performed By: #### 2 967602 #### [facility] [address] [place] [address] Eosinophils/100 WBC (Bld) 3.9 % Normal 0.0-8.0 [facility] Comment on above: Performed By: #### 2 486167 #### [facility] [address] [place] [address] Erythrocyte distribution width (RBC) [Ratio] 14.2 % Normal 10.9-14.2 [facility] Comment on above: Performed By: #### 2 [id number] #### [facility] [address] [place] [address] Hematocrit (Bld) [Volume fraction] 32.5 % Low 34.0-46.0 [facility] Comment on above: Performed By: #### 2 594236 #### [facility] [address] [place] [address] Hemoglobin (Bld) [Mass/Vol] 11.1 g/dL Low 12.0-16.0 [facility] Comment on above: Performed By: #### 2 864985 #### [facility] [address] [place] [address] Lymph Absolute 1.3 E9/L Normal 1.0-4.0 [facility] Comment on above: Performed By: #### 2 111157 #### [facility] [address] [place] [address] Lymphocytes/100 WBC (Bld) 10.4 % Low 14.0-50.0 [facility] Comment on above: Performed By: #### 2 340854 #### [facility] [address] [place] [address] MCH (RBC) [Entitic mass] 34.7 pg High 27.0-34.0 [facility] Comment on above: Performed By: #### 2 855141 #### [facility] [address] [place] [address] MCHC (RBC) [Mass/Vol] 34.2 g/dL Normal 31.4-36.0 [facility] Comment on above: Performed By: #### 2 496261 #### [facility] [address] [place] [address] MCV (RBC) [Entitic vol] 101.5 fL High 80.0-100.0 [facility] Comment on above: Performed By: #### 2 638573 #### [facility] [address] [place] [address] [place] Absolute 1.1 E9/L High 0.2-1.[address] [facility] Comment on above: Performed By: #### 2 672531 #### [facility] [address] [place] [address] Monocytes/100 WBC (Bld) 9.0 % Normal 4.0-14.0 [facility] Comment on above: Performed By: #### 2 488834 #### [facility] [address] [place] [address] Neutro Absolute 9.2 E9/L High 2.0-7.5 [facility] Comment on above: Performed By: #### 2 161935 #### [facility] [address] [place] [address] Neutro Auto 76.2 % High 36.0-75.0 [facility] Comment on above: Performed By: #### 2 868457 #### [facility] [address] [place] [address] Platelet 189.0 E9/L Normal 150.0-500.0 [facility] Comment on above: Performed By: #### 2 097397 #### [facility] [address] [place] [address] Platelet mean volume (Bld) [Entitic vol] 7.4 fL Normal 6.4-10.8 [facility] Comment on above: Performed By: #### 2 028968 #### [facility] [address] [place] [address] RBC 3.2 E12/L Low 4.3-5.9 [facility] Comment on above: Performed By: #### 2 598808 #### [facility] [address] [place] [address] WBC 12.1 E9/L High 4.0-11.0 [facility] Comment on above: Performed By: #### 2 427395 #### [facility] [address] [place] [address] CMPon 01-14-2025 Albumin [Mass/Vol] 3.5 g/dL Normal 3.3-5.0 [facility] Comment on above: Performed By: #### 2 701465 #### [facility] [address] [place] [address] Albumin/Globulin [Mass ratio] 1.3 {ratio} Normal 1.1-2.2 [facility] Comment on above: Performed By: #### 2 555093 #### [facility] [address] [place] [address] Alk Phos 66 Int._Unit/L Normal 21-98 [facility] Comment on above: Performed By: #### 2 526561 #### [facility] [address] [place] [address] ALT 7 Int._Unit/L Normal 6-[address] [facility] Comment on above: Performed By: #### 2 885476 #### [facility] [address] [place] [address] Anion gap [Moles/Vol] 10 mmol/L Normal 6-16 [facility] Comment on above: Performed By: #### 2 093910 #### [facility] [address] [place] [address] AST 13 Int._Unit/L Normal 5-43 [facility] Comment on above: Performed By: #### 2 343471 #### [facility] [address] [place] [address] Bili Total 0.6 mg/dL Normal 0.0-1.1 [facility] Comment on above: Performed By: #### 2 015805 #### [facility] [address] [place] [address] BUN/Creat Ratio 17 No Units Normal 10-20 [facility] Comment on above: Performed By: #### 2 151204 #### [facility] [address] [place] [address] Calcium [Mass/Vol] 8.6 mg/dL Low 8.9-11.1 [facility] Comment on above: Performed By: #### 2 513639 #### [facility] [address] [place] [address] Chloride [Moles/Vol] 103 mmol/L Normal 101-111 [facility] Comment on above: Performed By: #### 2 567580 #### [facility] [address] [place] [address] CO2 [Moles/Vol] 33 mmol/L High 21-31 [facility] Comment on above: Performed By: #### 2 704454 #### [facility] [address] [place] [address] Creatinine [Mass/Vol] 1.5 mg/dL High 0.5-1.3 [facility] Comment on above: Performed By: #### 2 242717 #### [facility] [address] [place] [address] Globulin (S) [Mass/Vol] 2.6 g/dL Normal 1.4-4.0 [facility] Comment on above: Performed By: #### 2 805400 #### [facility] [address] [place] [address] Glucose [Mass/Vol] 90 mg/dL Normal 55-199 [facility] Comment on above: Performed By: #### 2 878524 #### [facility] [address] [place] [address] Potassium [Moles/Vol] 3.7 mmol/L Normal 3.5-5.3 [facility] Comment on above: Performed By: #### 2 081688 #### [facility] [address] [place] [address] Protein [Mass/Vol] 6.1 g/dL Normal 6.0-7.8 [facility] Comment on above: Performed By: #### 2 555362 #### [facility] [address] [place] [address] Sodium [Moles/Vol] 142 mmol/L Normal 135-145 [facility] Comment on above: Performed By: #### 2 466952 #### [facility] [address] [place] [address] Urea nitrogen [Mass/Vol] 25 mg/dL High 5-21 [facility] Comment on above: Performed By: #### 2 389405 #### [facility] [address] [place] [address] [id number] 01-14-2025 HbA1c (Bld) [Mass fraction] 5.6 % Normal <=5.9 [facility] Comment on above: Performed By: #### 7 [id number] #### [facility] [address] [place] [address] MRA Head w/o Contraston 0 MRA Head w/o Contrast Exam Date/Time: 01/14/2025 16:51 EDT Reason for Exam: TIA Report Please see MRI brain report. Ordering Provider: Jarrod Mahajan FINAL REPORT Dictated: 01/14/2025 5:19 pm Dwight Coffey DO Signed (Electronic Signature): 01/14/2025 5:19 pm Signed by: Dwight Coffey DO Transcribed by: BEATRIZ Technologist: LULY Jim [facility] MRA Neck w/o Contraston MRA Neck w/o Contrast Exam Date/Time: 01/14/2025 16:51 EDT Reason for Exam: TIA Report IMPRESSION: NO DISSECTION, HIGH GRADE STENOSIS OR ANEURYSM. EXAM: MR angiogram of the neck without contrast HISTORY: TIA TECHNIQUE: Axial 2-D and 3-D [id number]-ld-[id number] images of the vasculature of the neck [...] DO Transcribed by: BEATRIZ Technologist: LULY Rider [facility] MRI Brain w/o Contraston MRI Brain [...] brain was performed without contrast. Axial 3-D [id number]-qg-uxorwe images of the brain were obtained without [...] DO Transcribed by: BEATRIZ Technologist: LULY Normal [facility] eGFRon 01-14-2025 eGFR 36 mL/min/1.73 m2 Low >=59 [facility] Comment on above: Performed By: #### 1 [id number] #### [facility] [address] [place] [address] BB Draw & Holdon 01-13-2025 BB D&H Sample drawn for Blood Ba Normal [facility] Comment on above: Performed By: #### 1 [id number] #### [facility] [address] [place] [address] BMPon 01-13-2025 Anion gap [Moles/Vol] 15 mmol/L Normal 6-16 [facility] Comment on above: Performed By: #### 2 727004 #### [facility] [address] [place] [address] BUN/Creat Ratio 16 No Units Normal 10-20 [facility] Comment on above: Performed By: #### 2 156104 #### [facility] [address] [place] [address] Calcium [Mass/Vol] 9.9 mg/dL Normal 8.9-11.1 [facility] Comment on above: Performed By: #### 2 084553 #### [facility] [address] [place] [address] Chloride [Moles/Vol] 99 mmol/L Low 101-111 [facility] Comment on above: Performed By: #### 2 777401 #### [facility] [address] [place] [address] CO2 [Moles/Vol] 29 mmol/L Normal 21-31 [facility] Comment on above: Performed By: #### 2 520409 #### [facility] [address] [place] [address] Creatinine [Mass/Vol] 1.6 mg/dL High 0.5-1.3 [facility] Comment on above: Performed By: #### 2 947677 #### [facility] [address] [place] [address] Glucose [Mass/Vol] 172 mg/dL Normal 55-199 [facility] Comment on above: Performed By: #### 2 767158 #### [facility] [address] [place] [address] Potassium [Moles/Vol] 3.8 mmol/L Normal 3.5-5.3 [facility] Comment on above: Performed By: #### 2 [id number] #### [facility] [address] [place] [address] Sodium [Moles/Vol] 139 mmol/L Normal 135-145 [facility] Comment on above: Performed By: #### 2 [id number] #### [facility] [address] [place] [address] Urea nitrogen [Mass/Vol] 26 mg/dL High 5-21 [facility] Comment on above: Performed By: #### 2 [id number] #### [facility] [address] [place] [address] BNPon 01-13-2025 Int Ctr BNP Pass Normal [facility] Comment on above: Performed By: #### 1 [id number] #### [facility] [address] [place] [address] Natriuretic peptide B (Bld) [Mass/Vol] 370 pg/mL High 5-80 [facility] Comment on above: Performed By: #### 1 [id number] #### [facility] [address] [place] [address] CBC w/ Auto Diffon 5 Basophil Absolute 0.1 E9/L Normal 0.0-0.2 [facility] Comment on above: Performed By: #### 2 [id number] #### [facility] [address] [place] [address] Basophils/100 WBC (Bld) 0.5 % Normal 0.0-2.0 [facility] Comment on above: Performed By: #### 2 [id number] #### [facility] [address] [place] [address] Eos Absolute 0.1 E9/L Normal 0.0-0.5 [facility] Comment on above: Performed By: #### 2 [id number] #### [facility] [address] [place] [address] Eosinophils/100 WBC (Bld) 0.4 % Normal 0.0-8.0 [facility] Comment on above: Performed By: #### 2 [id number] #### [facility] [address] [place] [address] Erythrocyte distribution width (RBC) [Ratio] 14.3 % High 10.9-14.2 [facility] Comment on above: Performed By: #### 2 [id number] #### [facility] [address] [place] [address] Hematocrit (Bld) [Volume fraction] 38.6 % Normal 34.0-46.0 [facility] Comment on above: Performed By: #### 2 [id number] #### [facility] [address] [place] [address] Hemoglobin (Bld) [Mass/Vol] 13.4 g/dL Normal 12.0-16.0 [facility] Comment on above: Performed By: #### 2 [id number] #### [facility] [address] [place] [address] Lymph Absolute 0.7 E9/L Low 1.0-4.0 [facility] Comment on above: Performed By: #### 2 [id number] #### [facility] [address] [place] [address] Lymphocytes/100 WBC (Bld) 5.2 % Low 14.0-50.0 [facility] Comment on above: Performed By: #### 2 [id number] #### [facility] [address] [place] [address] MCH (RBC) [Entitic mass] 34.9 pg High 27.0-34.0 [facility] Comment on above: Performed By: #### 2 [id number] #### [facility] [address] [place] [address] MCHC (RBC) [Mass/Vol] 34.6 g/dL Normal 31.4-36.0 [facility] Comment on above: Performed By: #### 2 [id number] #### [facility] [address] [place] [address] MCV (RBC) [Entitic vol] 100.7 fL High 80.0-100.0 [facility] Comment on above: Performed By: #### 2 548160 #### [facility] [address] [place] [address] [place] Absolute 0.3 E9/L Normal 0.2-1.[address] [facility] Comment on above: Performed By: #### 2 [id number] #### [facility] [address] [place] [address] Monocytes/100 WBC (Bld) 2.2 % Low 4.0-14.0 [facility] Comment on above: Performed By: #### 2 [id number] #### [facility] [address] [place] [address] Neutro Absolute 12.6 E9/L High 2.0-7.5 [facility] Comment on above: Performed By: #### 2 [id number] #### [facility] [address] [place] [address] Neutro Auto 91.7 % High 36.0-75.0 [facility] Comment on above: Performed By: #### 2 [id number] #### [facility] [address] [place] [address] Platelet 233.0 E9/L Normal 150.0-500.0 [facility] Comment on above: Performed By: #### 2 [id number] #### [facility] [address] [place] [address] Platelet mean volume (Bld) [Entitic vol] 7.2 fL Normal 6.4-10.8 [facility] Comment on above: Performed By: #### 2 [id number] #### [facility] [address] [place] [address] RBC 3.8 E12/L Low 4.3-5.9 [facility] Comment on above: Performed By: #### 2 [id number] #### [facility] [address] [place] [address] WBC 13.7 E9/L High 4.0-11.0 [facility] Comment on above: Performed By: #### 2 081301 #### [facility] [address] [place] [address] COVID-19 (MC)on 01-13-2025 SARS-CoV-2 (COVID-19) RNA DONNIE+probe Ql (Unsp spec) Not detected Normal Not Detected [facility] Comment on above: Result Comment: This [...] Emergency Use Authorization. Performed By: #### 2 [id number] #### [facility] [address] [place] [address] SARS-CoV-2 (COVID-19) RNA DONNIE+probe Ql (Unsp spec) Pass Normal Pass [facility] Comment on above: Performed By: #### 2 [id number] #### [facility] [address] [place] [address] Specimen source Nom (Unsp spec) Nasal Normal [facility] Comment on above: Performed By: #### 2 [id number] #### [facility] [address] [place] [address] Head or Brain w/o Contras ton [...] MD Transcribed by: BEATRIZ Technologist: JULIA Normal [facility] ED Clinical Summaryon 2024 ED Clinical Summary ED Clinical Summary [address] [address] ED Clinical Summary Person Information Name: LINDA NASCIMENTO [place] Age: 74 Years : 1950 Sex: Female Language: Gambian PCP: Ave Mehta MD Marital Status: Visit Id: Visit Reason: Potential stroke; Syncope/Near syncope; Weakness or fatigue; POSS STROKE Speciality: Acuity: 2 Enc Type: Inpatient Med Service: Medical Arrival: 01/13/2025 13:01:29 Discharge: LOS: 000 02:54 Checkin: 01/13/2025 13:01:29 Checkout: 01/13/2025 15:55:23 Dispo Type: Admitted as IP to this [facility] EVENTS: Event Name Event Status Request [...] 01/13/2025 15:55:23 01/13/2025 15:55:23 01/13/2025 15:55:23 ADDRESS: [address] [place] [id number] PHYS DOC NOTES: MEDICAL INFORMATION: Prescriptions Given: [...] hypoxic respiratory failure; 6:Acute kidney injury Normal [facility] ED Note-Physicianon 01-14-20 ED Note-Physician ED Note-Physician Basic Information Time Seen: Bobo AshrafBrittny 01/13/2025 13:11 Chief Complaint patient last well known time is 1130. patient at lunch, per NH pt went unresponsive, EMS called and were informed that patient possible stroke, Patient initiated IV, patient transported to [facility] ED, History of Present Illness The patient is a 74-year-old female past medical history of atrial fibrillation on Eliquis, status post pacemaker placement who presented to the emergency room from [facility] for possible stroke. The patient presented [...] age Procedure Sepsis Data [ ] Patient's [place] body weight was considered in sepsis fluid [...] and Complexity of Problems Differential Diagnosis: [] [facility] Data External documents reviewed: [] My [...] vital sig (more content not included)... Normal [facility] Comment on above: Result Comment: Elec tronically Signed By: Brittny Broussard M.D.\.br\Date and Time Signed: 01/13/25 16:21 EDT ED Patient Education Noteon 01-13-2025 ED Patient Education Note ED Patient Education Note Normal [facility] ED Patient Summaryon 025 ED Patient Summary ED Patient Summary [place] [address] Patient Discharge Instructions Person Information Name: LINDA NASCIMENTO Age: 74 Years Arrival Date: 01/13/2025 13:01:29 Discharge Diagnosis: 1:Sepsis; 2:Pneumonia; 3:Stroke-like symptoms; 4:Aphasia; 5:Acute hypoxic respiratory failure; 6:Acute kidney injury Primary Care Physician: Ave Mehta MD Provider Information Primary Provider: Brittny Broussard M.D. Advanced Ophthalmic Medical Technologist:None The exam and treatment you received in the Emergency Department were for an urgent problem and are not intended as complete care. It is important that you follow up with a doctor, nurse practitioner, or physician???s web marketing assistant for ongoing care. If your symptoms [...] opioids can be used to help relieve bkunxgqj-fp-jxawjz pain and are often prescribed following a [...] be struggling with addiction, tell your health resident care director and ask for guidance or call [facility]???S National Helpline at [phone]. (more content not included)... Normal [facility] Hep Func Panelon 01-13-2025 Albumin [Mass/Vol] 4.5 g/dL Normal 3.3-5.0 [facility] Comment on above: Performed By: #### 2 [id number] #### [facility] [address] [place] [address] Albumin/Globulin [Mass ratio] 1.3 {ratio} Normal 1.1-2.2 [facility] Comment on above: Performed By: #### 2 [id number] #### [facility] [address] [place] [address] Alk Phos 86 Int._Unit/L Normal 21-98 [facility] Comment on above: Performed By: #### 2 [id number] #### [facility] [address] [place] [address] ALT 10 Int._Unit/L Normal 6-46 [facility] Comment on above: Performed By: #### 2 [id number] #### [facility] [address] [place] [address] AST 22 Int._Unit/L Normal 5-43 [facility] Comment on above: Performed By: #### 2 [id number] #### [facility] [address] [place] [address] Bili Direct 0.1 mg/dL Normal 0.0-0.4 [facility] Comment on above: Performed By: #### 2 [id number] #### [facility] [address] [place] [address] Bili Indirect 0.6 mg/dL Normal 0.1-0.[address] [facility] Comment on above: Performed By: #### 2 [id number] #### [facility] [address] [place] [address] Bili Total 0.7 mg/dL Normal 0.0-1.1 [facility] Comment on above: Performed By: #### 2 [id number] #### [facility] [address] [place] [address] Globulin (S) [Mass/Vol] 3.5 g/dL Normal 1.4-4.0 [facility] Comment on above: Performed By: #### 2 [id number] #### [facility] [address] [place] [address] Protein [Mass/Vol] 8.0 g/dL High 6.0-7.8 [facility] Comment on above: Performed By: #### 2 397642 #### [facility] [address] [place] [address] Lactic Acidon 01-13-2025 Lactic Acid Lvl 1.2 mmol/L Normal 0.5-2.2 [facility] Comment on above: Order Comment: Order added by EKS Rule. (FT_LACTIC_ACID_REFLEX) Adds reflex Lactic Acid 4 hours after initial if result is greater than or equal to 2.0. Performed By: #### 2 [id number] #### [facility] [address] [facility] [place] [address] Lactic Acid Lvl 2.1 mmol/L Normal 0.5-2.2 [facility] Comment on above: Performed By: #### 2 417284 #### [facility] [address] [place] [address] Magnesiumon 01-13-2025 Magnesium [Mass/Vol] 1.9 mg/dL Normal 1.3-2.4 [facility] Comment on above: Performed By: #### 2 [id number] #### [facility] [address] [facility] [place] [address] PT & PTTon 01-13-2025 INR Coag (PPP) [Relative time] 2.02 {INR} Invalid Interpretation Code [facility] Comment on above: Result Comment: INR results are specifically intended to assess patients stabilized on long-term Anticoagulation therapy suggested INR???s ???Less Intensive Anticoagulation??? 2.0 ??? 3.0 Conventional Range 3.0 ??? 4.5 Performed By: #### 1 [id number] #### [facility] [address] [facility] [place] [address] PT 22.8 second(s) High 9.4-12.5 [facility] Comment on above: Result Comment: 15 [...] the same coagulation reagent and instrumentation as [facility]. Currently there are no coagulation studies available worldwide for children to 14 days, and no normal ranges. Performed By: #### 1 [id number] #### [facility] [address] [place] [address] PTT 39.6 second(s) High 25.1-36.5 [facility] Comment on above: Result Comment: Para [...] the same coagulation reagent and instrumentation as [facility]. Currently there are no coagulation studies available worldwide for children to 14 days, and no normal ranges. Heparin therapeutic range (represented by Anti-Factor Xa activity of 0.2 - 0.4 U/mL) corresponds to PTT of 56.6 - 109.0 sec. Performed By: #### 1 [id number] #### [facility] [address] [place] [address] Pre-Arrival Noteon Pre-Arrival Note Pre-Arrival Note Pre-Arrival Summary Name: , CT EMS Current Date: 01/13/2025 13:01:54 EDT Gender: Female Date of : Age: 74 Pre-Arrival Type: EMS ETA: 01/13/2025 13:25:00 EDT Primary Care Physician: Presenting Problem: stroke Pre-Arrival User: Cassia Alcaraz RN Referring Source: Location: [place] Completion Date/Time: 01/13/2025 12:55:00 [facility] Emergency Department Pre-Hospital Report Form Vital Signs: Pre-Hospital Report: Treatment in Route: Response to Treatment: Misc. Issues: Normal [facility] Procalcitoninon 01-13-2025 Procalcitonin <.05 Normal .00-.[address] [facility] Comment on above: Result Comment: <0.5 [...] to 24 hours. Performed By: #### 2 [id number] #### [facility] [address] [place] [address] Respiratory Panel by PCRon 0 01-13-2025 Adenovirus Not detected Normal [facility] Comment on above: Result Comment: Test ing was performed using nucleic acid amplification including Influenza A, Influenza A H1, Influenza A H3, Influenza B, RSV A, RSV B, Adenovirus, Human Metapneumovirus, Parainfluenza 1,2,3, and 4, Rhinovirus, Bordetella parapertussis/bronchiseptica, Bordetella holmesii, and Bordetella pertussis. Performed By: #### 1 [id number] #### [facility] [address] [place] [address] B. holmesii Not detected Normal [facility] Comment on above: Performed By: #### 1 [id number] #### [facility] [address] [place] [id number] B. parapertussis/bronchise ptica Not detected Normal Not Detected [facility] Comment on above: Performed By: #### 1 [id number] #### [facility] [address] [place] [address] B. pertussis Not detected Normal Not Detected [facility] Comment on above: Performed By: #### 1 [id number] #### [facility] [address] [place] [address] Human Metapneumovirus Not detected Normal [facility] Comment on above: Result Comment: This test result should be correlated with clinical presentations and medical history by a healthcare provider to determine its clinical significance. Performed By: #### 1 [id number] #### [facility] [address] [place] [address] Influenza A Not detected Normal [facility] Comment on above: Performed By: #### 1 [id number] #### [facility] [address] [place] [address] Influenza A (subtype H1) Not detected Normal [facility] Comment on above: Performed By: #### 1 [id number] #### [facility] [address] [place] [address] Influenza A (subtype H3) Not detected Normal [facility] Comment on above: Performed By: #### 1 [id number] #### [facility] [address] [place] [address] Influenza B Not detected Normal [facility] Comment on above: Performed By: #### 1 [id number] #### [facility] [address] [place] [address] Parainfluenza 1 Not detected Normal [facility] Comment on above: Performed By: #### 1 [id number] #### [facility] [address] [place] [address] Parainfluenza 2 Not detected Normal [facility] Comment on above: Performed By: #### 1 [id number] #### [facility] [address] [place] [address] Parainfluenza 3 Not detected Normal [facility] Comment on above: Performed By: #### 1 [id number] #### [facility] [address] [place] [address] Parainfluenza 4 Not detected Normal [facility] Comment on above: Performed By: #### 1 [id number] #### [facility] [address] [place] [address] Resp Panel Intrl QC Pass Normal [facility] Comment on above: Performed By: #### 1 [id number] #### [facility] [address] [place] [address] Rhinovirus Not detected Normal [facility] Comment on above: Performed By: #### 1 [id number] #### [facility] [address] [place] [address] RSV A Not detected Normal [facility] Comment on above: Performed By: #### 1 [id number] #### [facility] [address] [place] [address] RSV B Not detected Normal [facility] Comment on above: Performed By: #### 1 [id number] #### [facility] [address] [place] [address] Troponin 0 Hr.on 01-13-2025 Troponin HS 10.60 pg/mL Normal 10.10-27.[address] [facility] Comment on above: Result Comment: The 95% CI (Confidence Interval) PPV (Positive Predictive Value) for myocardial infarction in females is 38 pg/mL, in males 51 pg/mL. The results should be used in conjunction with clinical conditions of myocardial infarction. (Access High Sensitivity Troponin I Instructions For Use, [facility], January 2018) Performed By: #### 1 [id number] #### [facility] [address] [place] [address] Troponin 1 Hr.on 01-13-2025 Troponin HS 17.50 pg/mL Normal 10.10-27.[address] [facility] Comment on above: Result Comment: The 95% CI (Confidence Interval) PPV (Positive Predictive Value) for myocardial infarction in females is 38 pg/mL, in males 51 pg/mL. The results should be used in conjunction with clinical conditions of myocardial infarction. (Access High Sensitivity Troponin I Instructions For Use, [facility], January 2018) Performed By: #### 1 [id number] #### [facility] [address] [place] [address] UA with Cult Rflxon 01-14-20 25 Color (U) Colorless Abnormal Yellow [facility] Comment on above: Result Comment: Micr oscopic readings are only performed on those samples that meet specific criteria set forth by [facility]. Performed By: #### 4 [id number] #### [facility] [address] [place] [address] Ketones Ql (U) Negative Normal Negative [facility] Comment on above: Performed By: #### 4 [id number] #### [facility] [address] [place] [address] UA Blood Negative Normal Negative [facility] Comment on above: Performed By: #### 4 [id number] #### [facility] [address] [place] [address] UA Clarity Clear Normal Clear [facility] Comment on above: Performed By: #### 4 [id number] #### [facility] [address] [place] [address] UA Glucose 3+ mg/dL Abnormal Negative [facility] Comment on above: Performed By: #### 4 [id number] #### [facility] [address] [place] [address] UA Leuk Est Negative Normal Negative [facility] Comment on above: Performed By: #### 4 [id number] #### [facility] [address] [place] [address] UA Nitrite Negative Normal Negative [facility] Comment on above: Performed By: #### 4 [id number] #### [facility] [address] [place] [address] UA pH 6.5 Invalid Interpretation Code 5.0-9.0 [facility] Comment on above: Performed By: #### 4 [id number] #### [facility] [address] [place] [address] UA Protein Negative Normal Negative [facility] Comment on above: Performed By: #### 4 [id number] #### [facility] [address] [place] [address] UA Spec Grav 1.006 Invalid Interpretation Code 1.005-1.030 [facility] Comment on above: Performed By: #### 4 [id number] #### [facility] [address] [place] [address] UA Urobilinogen Negative Normal Negative [facility] Comment on above: Performed By: #### 4 [id number] #### [facility] [address] [place] [address] Urobilinogen (U) [Mass/Vol] Negative Normal Negative [facility] Comment on above: Performed By: #### 4 [id number] #### [facility] [address] [place] [address] UA Spec Desc Clean Catch Normal [facility] Comment on above: Performed By: #### 4 [id number] #### [facility] [address] [place] [address] XR Chest Single Viewon 01-13 XR Chest [...] MD Transcribed by: BEATRIZ Technologist: DPR Normal [facility] eGFRon 01-13-2025 eGFR 33 mL/min/1.73 m2 Low >=59 [facility] Comment on above: Performed By: #### 1 [id number] #### [facility] [address] [place] [address] Office Visiton 12-31-2024 Follow-up visit [id number] Linda Nascimento 1950 Date Provider Department Center 12/31/2024 [address] JUAN Lopez Family History Problem Relation Age of Onset Lung cancer Mother Stroke Father Family Status - Relation Status Age at Mother Father Level of Service:65606 OR OFFICE/OUTPATIENT ESTABLISHED HIGH MDM 40 MIN Normal [facility] Orders Onlyon 12-31-2024 Orders Only [id number] Linda Nascimento 1950 Provider Department Center 12/31/2024 ROXY MARTIN Family History Problem Relation Age of Onset Lung cancer Mother Stroke Father Family Status - Relation Status Age at Mother Father Normal [facility] KERRI Antinuclear Antibodieson 07-31-2024 Antinuclear Abs, IFA Positive Critically abnormal . [facility] Comment on above: Result Comment: Nega tive <1:80 Borderline 1:80 Positive >1:80 Speckled cytoplasmic fluorescence is present. The antibodies noted in this pattern may be associated with, but not restricted to, primary biliary cirrhosis (PBC), polymyositis and dermatomyositis (PM/DM), and/or systemic lupus erythematosus (SLE). Performed By: #### T 4F, CK, CRP, TSH3, ESR, CBC, CMP #### [facility] [address] #### HBCAB, JUSTINA, HBSAG, ALDOLASE, HCV RX PCR, HBSAB, THYGLOB AB, CHROMATIN, C4, C3, CH50, RPR W RFX, TPO, KERRI #### [facility] , Homogeneous Pattern 1:160 High . [facility] Comment on above: Result Comment: ICAP nomenclature: [id number] Performed By: #### T 4F, CK, CRP, TSH3, ESR, CBC, CMP #### [facility] [address] #### HBCAB, JUSTINA, HBSAG, ALDOLASE, HCV RX PCR, HBSAB, THYGLOB AB, CHROMATIN, C4, C3, CH50, RPR W RFX, TPO, KERRI #### [facility] , Note 1 Comment Normal . [facility] Comment on above: Result Comment: Brigid ignacio Potential Disease Association Homogeneous Systemic Lupus Erythematosus, Drug Induced Systemic Lupus Erythematosus, Chronic Autoimmune hepatitis, Juvenile Idiopathic Arthritis Speckled Sjogren Syndrome, Systemic Lupus Erythematosus, Subacute Cutaneous Lupus, Lupus, Congenital Heart Block, Mixed Connective Tissue Disease, Scleroderma-diffuse, Scleroderma-Autoimmune Myositis Overlap Syndrome, Systemic Lupus Qyzwuedmfogom-Xfnswlipmtf-Nxxllieitc Myositis Overlap Syndrome, Systemic Autoimmune Rheumatic Disease, [...] Cytopenias, Linear Scleroderma, Antiphospholipid Syndrome Performed at: [facility] [address] [id number] Appeals Writer: Iain Siegel PhD, Phone: [phone] Performed By: #### T 4F, CK, CRP, TSH3, ESR, CBC, CMP #### [facility] [address] [place] [address] #### HBCAB, JUSTINA, HBSAG, ALDOLASE, HCV RX PCR, HBSAB, THYGLOB AB, CHROMATIN, C4, C3, CH50, RPR W RFX, TPO, KERRI #### [facility] , Alanine aminotransferase [En zymatic activity/volume] in Serum or PlasmaOrdered By: Beti Ham on 07-31-2024 ALT [Catalytic activity/Vol] Alanine aminotransferase [Enzymatic activity/volume] in Serum or Plasma [facility] Albumin [Mass/volume] in Ser um or Plasma by Bromocresol green (BCG) dye binding methoOrdered By: Beti Ham on 07-31-2024 Albumin BCG dye [Mass/Vol] Albumin [Mass/volume] in Serum or Plasma by Bromocresol green (BCG) dye binding metho 3.5-5.7 [facility] Aldolaseon 07-31-2024 Aldolase 3.3 U/L Normal 3.3-10.3 [facility] Comment on above: Result Comment: Perf ormed at: [facility] [address] [id number] Appeals Writer: Iain Siegel PhD, Phone: [phone] PERFORMED BY: [place] [address] PATHOLOGIST BILLPOSTER SARAHI JUAREZ M.D. Performed By: #### T 4F, CK, CRP, TSH3, ESR, CBC, CMP #### [place] [address] [place] #### HBCAB, JUSTINA, HBSAG, ALDOLASE, HCV RX PCR, HBSAB, THYGLOB AB, CHROMATIN, C4, C3, CH50, RPR W RFX, TPO, KERRI #### [facility] , Alkaline phosphatase [Enzyma tic activity/volume] in Serum or PlasmaOrdered By: Beti Ham on 07-31-2024 ALP [Catalytic activity/Vol] Alkaline phosphatase [Enzymatic activity/volume] in Serum or Plasma 34-104 [facility] Angiotensin Converting Enzym libby 07-31-2024 Angiotensin converting enzyme [Catalytic activity/Vol] 53 U/L Normal 14-82 [facility] Comment on above: Result Comment: Perf ormed at: - [facility] [address] [id number] Appeals Writer: Iain Siegel PhD, Phone: [phone] Performed By: #### T 4F, CK, CRP, TSH3, ESR, CBC, CMP #### [place] [address] [place] #### HBCAB, JUSTINA, HBSAG, ALDOLASE, HCV RX PCR, HBSAB, THYGLOB AB, CHROMATIN, C4, C3, CH50, RPR W RFX, TPO, KERRI #### [facility] , Antithyroglobulin Abon 07-31 Antithyroglobulin Ab <1.0 Normal 0.0-0.9 [facility] Comment on above: Result Comment: Thyr oglobulin Antibody measured by [facility] Methodology It should be noted that the presence of thyroglobulin antibodies may not be pathogenic nor diagnostic, especially at very low levels. The assay adventure therapist has found that four percent of individuals without evidence of thyroid disease or autoimmunity will have positive TgAb levels up to 4 IU/mL. Performed at: - [facility] [address] [id number] Appeals Writer: Iain Siegel PhD, Phone: [phone] Performed By: #### T 4F, CK, CRP, TSH3, ESR, CBC, CMP #### [place] [address] [place] #### HBCAB, JUSTINA, HBSAG, ALDOLASE, HCV RX PCR, HBSAB, THYGLOB AB, CHROMATIN, C4, C3, CH50, RPR W RFX, TPO, KERRI #### [facility] , Aspartate aminotransferase [ Enzymatic activity/volume] in Serum or PlasmaOrdered By: Beti Ham on 07-31-2024 AST [Catalytic activity/Vol] Aspartate aminotransferase [Enzymatic activity/volume] in Serum or Plasma 13-39 [facility] Basophils Auto (Bld) [#/Vol] Ordered By: Beti Ham on 07-31-2024 Basophils (Bld) [#/Vol] Automated basoph il count 0.0-0.2 [facility] Basophils/100 WBC Auto (Bld) Ordered By: Beti Ham on 07-31-2024 Basophils/100 WBC (Bld) Automated basophil % . [facility] Bilirubin.total [Mass/volume ] in Serum or PlasmaOrdered By: Beti Ham on 07-31-2024 Bilirubin [Mass/Vol] Bilirubin.total [Mass/volume] in Serum or Plasma 0.3-1.0 [facility] C reactive protein [Mass/vol ume] in Serum or PlasmaOrdered By: Beti Ham on 07-31-2024 CRP [Mass/Vol] C reactive protein [Mass/volume] in Serum or Plasma High 0.0-0.5 [facility] C-Reactive Proteinon 025 C-Reactive Protein 2.6 mg/dL High 0.0-0.5 [facility] Comment on above: Performed By: #### T 4F, CK, CRP, TSH3, ESR, CBC, CMP #### [facility] [address] [place] [address] [place] #### HBCAB, JUSTINA, HBSAG, ALDOLASE, HCV RX PCR, HBSAB, THYGLOB AB, CHROMATIN, C4, C3, CH50, RPR W RFX, TPO, KERRI #### [facility] , Calcium [Mass/volume] in Ser um or PlasmaOrdered By: Beti Ham on 07-31-2024 Calcium [Mass/Vol] Calcium [Mass/volume] in Serum or Plasma 8.6-10.3 [facility] Carbon dioxide, total [Moles /volume] in Serum or PlasmaOrdered By: Beti Ham on 07-31-2024 CO2 [Moles/Vol] Carbon dioxide, total [Moles/volume] in Serum or Plasma High 21.0-31.0 [facility] Chloride [Moles/volume] in S anne or PlasmaOrdered By: Beti Ham on 07-31-2024 Chloride [Moles/Vol] Chloride [Moles/volume] in Serum or Plasma 98-107 [facility] Chromatin Antibodyon 025 Chromatin Antibody <0.2 Normal 0.0-0.9 [facility] Comment on above: Performed By: #### T 4F, CK, CRP, TSH3, ESR, CBC, CMP #### [facility] [address] [place] [address] [place] #### HBCAB, JUSTINA, HBSAG, ALDOLASE, HCV RX PCR, HBSAB, THYGLOB AB, CHROMATIN, C4, C3, CH50, RPR W RFX, TPO, KERRI #### [facility] , Complement C3on 07-31-2024 Complement C3 189 mg/dL High 82-167 [facility] Comment on above: Result Comment: Perf ormed at: - [facility] [address] [id number] Appeals Writer: Iain Siegel PhD, Phone: [phone] Performed By: #### T 4F, CK, CRP, TSH3, ESR, CBC, CMP #### [facility] [address] [place] [address] [place] #### HBCAB, JUSTINA, HBSAG, ALDOLASE, HCV RX PCR, HBSAB, THYGLOB AB, CHROMATIN, C4, C3, CH50, RPR W RFX, TPO, KERRI #### [facility] , Complement C4on 07-31-2024 Complement C4 36 mg/dL Normal 12-38 [facility] Comment on above: Performed By: #### T 4F, CK, CRP, TSH3, ESR, CBC, CMP #### [place] [address] [place] #### HBCAB, JUSTINA, HBSAG, ALDOLASE, HCV RX PCR, HBSAB, THYGLOB AB, CHROMATIN, C4, C3, CH50, RPR W RFX, TPO, KERRI #### [facility] , Complement Total (CH50)on Complement Total (CH50) >60 Normal >41 [facility] Comment on above: Result Comment: [...] determine out of range values. Performed at: [facility] [address] [id number] Appeals Writer: Iain Siegel PhD, Phone: [phone] PERFORMED BY: [place] [address] PATHOLOGIST BILLPOSTER SARAHI JUAREZ M.D. Performed By: #### T 4F, CK, CRP, TSH3, ESR, CBC, CMP #### [place] [address] [place] #### HBCAB, JUSTINA, HBSAG, ALDOLASE, HCV RX PCR, HBSAB, THYGLOB AB, CHROMATIN, C4, C3, CH50, RPR W RFX, TPO, KERRI #### [facility] , Complete Blood Count Auto Di ffon 02-19-2025 Basophils (Bld) [#/Vol] 0.1 10*3/uL Normal 0.0-0.2 [facility] Comment on above: Performed By: #### T 4F, CK, CRP, TSH3, ESR, CBC, CMP #### [address] #### HBCAB, JUSTINA, HBSAG, ALDOLASE, HCV RX PCR, HBSAB, THYGLOB AB, CHROMATIN, C4, C3, CH50, RPR W RFX, TPO, KERRI #### [facility] , Basophils/100 WBC (Bld) 0.9 % Normal . T will [facility] Comment on above: Performed By: #### T 4F, CK, CRP, TSH3, ESR, CBC, CMP #### [address] #### HBCAB, JUSTINA, HBSAG, ALDOLASE, HCV RX PCR, HBSAB, THYGLOB AB, CHROMATIN, C4, C3, CH50, RPR W RFX, TPO, KERRI #### [facility] , Eosinophils (Bld) [#/Vol] 0.3 10*3/uL Normal 0.0-0.45 [facility] Comment on above: Performed By: #### T 4F, CK, CRP, TSH3, ESR, CBC, CMP #### [place] [address] [place] #### HBCAB, JUSTINA, HBSAG, ALDOLASE, HCV RX PCR, HBSAB, THYGLOB AB, CHROMATIN, C4, C3, CH50, RPR W RFX, TPO, KERRI #### [facility] , Eosinophils/100 WBC (Bld) 4.4 % Normal . [facility] Comment on above: Performed By: #### T 4F, CK, CRP, TSH3, ESR, CBC, CMP #### [place] [address] [place] #### HBCAB, JUSTINA, HBSAG, ALDOLASE, HCV RX PCR, HBSAB, THYGLOB AB, CHROMATIN, C4, C3, CH50, RPR W RFX, TPO, KERRI #### [facility] , Erythrocyte distribution width (RBC) [Ratio] 15.0 % Normal 11.9-15.3 [facility] Comment on above: Performed By: #### T 4F, CK, CRP, TSH3, ESR, CBC, CMP #### [address] #### HBCAB, JUSTINA, HBSAG, ALDOLASE, HCV RX PCR, HBSAB, THYGLOB AB, CHROMATIN, C4, C3, CH50, RPR W RFX, TPO, KERRI #### [facility] , Hematocrit (Bld) [Volume fraction] 34.5 % Normal 34.0-46.4 [facility] Comment on above: Performed By: #### T 4F, CK, CRP, TSH3, ESR, CBC, CMP #### [place] [address] [place] #### HBCAB, JUSTINA, HBSAG, ALDOLASE, HCV RX PCR, HBSAB, THYGLOB AB, CHROMATIN, C4, C3, CH50, RPR W RFX, TPO, KERRI #### [facility] , Hemoglobin (Bld) [Mass/Vol] 12.0 g/dL Normal 11.8-15.4 [facility] Comment on above: Performed By: #### T 4F, CK, CRP, TSH3, ESR, CBC, CMP #### [place] [address] [place] #### HBCAB, JUSTINA, HBSAG, ALDOLASE, HCV RX PCR, HBSAB, THYGLOB AB, CHROMATIN, C4, C3, CH50, RPR W RFX, TPO, KERRI #### [facility] , Lymphocytes (Bld) [#/Vol] 1.1 10*3/uL Normal 1.00-4.8 [facility] Comment on above: Performed By: #### T 4F, CK, CRP, TSH3, ESR, CBC, CMP #### [place] [address] [place] #### HBCAB, JUSTINA, HBSAG, ALDOLASE, HCV RX PCR, HBSAB, THYGLOB AB, CHROMATIN, C4, C3, CH50, RPR W RFX, TPO, KERRI #### [facility] , Lymphocytes/100 WBC (Bld) 15.8 % Normal . [facility] Comment on above: Performed By: #### T 4F, CK, CRP, TSH3, ESR, CBC, CMP #### [address] #### HBCAB, JUSTINA, HBSAG, ALDOLASE, HCV RX PCR, HBSAB, THYGLOB AB, CHROMATIN, C4, C3, CH50, RPR W RFX, TPO, KERRI #### [facility] , MCH (RBC) [Entitic mass] 36.0 pg High 24.7-34.3 [facility] Comment on above: Performed By: #### T 4F, CK, CRP, TSH3, ESR, CBC, CMP #### [address] #### HBCAB, JUSTINA, HBSAG, ALDOLASE, HCV RX PCR, HBSAB, THYGLOB AB, CHROMATIN, C4, C3, CH50, RPR W RFX, TPO, KERRI #### [facility] , MCV (RBC) [Entitic vol] 103.7 fL High 80-100 T he [facility] Comment on above: Performed By: #### T 4F, CK, CRP, TSH3, ESR, CBC, CMP #### [place] [address] [place] #### HBCAB, JUSTINA, HBSAG, ALDOLASE, HCV RX PCR, HBSAB, THYGLOB AB, CHROMATIN, C4, C3, CH50, RPR W RFX, TPO, KERRI #### [facility] , Mean Corpuscular HGB Conc 34.7 g/dL Normal 32.0-35.0 [facility] Comment on above: Performed By: #### T 4F, CK, CRP, TSH3, ESR, CBC, CMP #### [place] [address] [place] #### HBCAB, JUSTINA, HBSAG, ALDOLASE, HCV RX PCR, HBSAB, THYGLOB AB, CHROMATIN, C4, C3, CH50, RPR W RFX, TPO, KERRI #### [facility] , Monocytes (Bld) [#/Vol] 0.5 10*3/uL Normal 0.0-0.8 [facility] Comment on above: Performed By: #### T 4F, CK, CRP, TSH3, ESR, CBC, CMP #### [facility] [address] #### HBCAB, JUSTINA, HBSAG, ALDOLASE, HCV RX PCR, HBSAB, THYGLOB AB, CHROMATIN, C4, C3, CH50, RPR W RFX, TPO, KERRI #### [facility] , Monocytes/100 WBC (Bld) 7.0 % Normal . T will [facility] Comment on above: Performed By: #### T 4F, CK, CRP, TSH3, ESR, CBC, CMP #### [facility] [address] #### HBCAB, JUSTINA, HBSAG, ALDOLASE, HCV RX PCR, HBSAB, THYGLOB AB, CHROMATIN, C4, C3, CH50, RPR W RFX, TPO, KERRI #### [facility] , Neutrophils (Bld) [#/Vol] 5.2 10*3/uL Normal 1.8-7.7 [facility] Comment on above: Performed By: #### T 4F, CK, CRP, TSH3, ESR, CBC, CMP #### [facility] [address] [place] [address] [place] #### HBCAB, JUSTINA, HBSAG, ALDOLASE, HCV RX PCR, HBSAB, THYGLOB AB, CHROMATIN, C4, C3, CH50, RPR W RFX, TPO, KERRI #### [facility] , Neutrophils/100 WBC (Bld) 71.9 % Normal . [facility] Comment on above: Performed By: #### T 4F, CK, CRP, TSH3, ESR, CBC, CMP #### [place] [address] [place] #### HBCAB, JUSTINA, HBSAG, ALDOLASE, HCV RX PCR, HBSAB, THYGLOB AB, CHROMATIN, C4, C3, CH50, RPR W RFX, TPO, KERRI #### [facility] , NRBC% 0.1 /100{WBC} Normal 0-0.5 [facility] Comment on above: Performed By: #### T 4F, CK, CRP, TSH3, ESR, CBC, CMP #### [address] #### HBCAB, JUSTINA, HBSAG, ALDOLASE, HCV RX PCR, HBSAB, THYGLOB AB, CHROMATIN, C4, C3, CH50, RPR W RFX, TPO, KERRI #### [facility] , Platelet mean volume (Bld) [Entitic vol] 7.9 fL Normal 6.3-10.7 [facility] Comment on above: Performed By: #### T 4F, CK, CRP, TSH3, ESR, CBC, CMP #### [place] [address] [place] #### HBCAB, JUSTINA, HBSAG, ALDOLASE, HCV RX PCR, HBSAB, THYGLOB AB, CHROMATIN, C4, C3, CH50, RPR W RFX, TPO, KERRI #### [facility] , Platelets (Bld) [#/Vol] 204 10*3/uL Normal 150-450 [facility] Comment on above: Performed By: #### T 4F, CK, CRP, TSH3, ESR, CBC, CMP #### [place] [address] [place] #### HBCAB, JUSTINA, HBSAG, ALDOLASE, HCV RX PCR, HBSAB, THYGLOB AB, CHROMATIN, C4, C3, CH50, RPR W RFX, TPO, KERRI #### [facility] , RBC (Bld) [#/Vol] 3.32 10*6/uL Low 3.60-5.00 [facility] Comment on above: Performed By: #### T 4F, CK, CRP, TSH3, ESR, CBC, CMP #### [address] #### HBCAB, JUSTINA, HBSAG, ALDOLASE, HCV RX PCR, HBSAB, THYGLOB AB, CHROMATIN, C4, C3, CH50, RPR W RFX, TPO, KERRI #### [facility] , WBC (Bld) [#/Vol] 7.2 10*3/uL Normal 3.8-11.6 [facility] Comment on above: Performed By: #### T 4F, CK, CRP, TSH3, ESR, CBC, CMP #### [address] #### HBCAB, JUSTINA, HBSAG, ALDOLASE, HCV RX PCR, HBSAB, THYGLOB AB, CHROMATIN, C4, C3, CH50, RPR W RFX, TPO, KERRI #### [facility] , Comprehensive Metabolic Pane mahenrda 07-31-2024 Albumin [Mass/Vol] 3.7 g/dL Normal 3.5-5.7 [facility] Comment on above: Performed By: #### T 4F, CK, CRP, TSH3, ESR, CBC, CMP #### [address] #### HBCAB, JUSTINA, HBSAG, ALDOLASE, HCV RX PCR, HBSAB, THYGLOB AB, CHROMATIN, C4, C3, CH50, RPR W RFX, TPO, KERRI #### [facility] , Albumin/Globulin [Mass ratio] 1.4 {ratio} Normal [facility] Comment on above: Performed By: #### T 4F, CK, CRP, TSH3, ESR, CBC, CMP #### [address] #### HBCAB, JUSTINA, HBSAG, ALDOLASE, HCV RX PCR, HBSAB, THYGLOB AB, CHROMATIN, C4, C3, CH50, RPR W RFX, TPO, KERRI #### [facility] , ALP [Catalytic activity/Vol] 94 U/L Normal 34-104 [facility] Comment on above: Performed By: #### T 4F, CK, CRP, TSH3, ESR, CBC, CMP #### [address] #### HBCAB, JUSTINA, HBSAG, ALDOLASE, HCV RX PCR, HBSAB, THYGLOB AB, CHROMATIN, C4, C3, CH50, RPR W RFX, TPO, KERRI #### [facility] , ALT [Catalytic activity/Vol] 10 U/L Normal 7-52 [facility] Comment on above: Performed By: #### T 4F, CK, CRP, TSH3, ESR, CBC, CMP #### [place] [address] [place] #### HBCAB, JUSTINA, HBSAG, ALDOLASE, HCV RX PCR, HBSAB, THYGLOB AB, CHROMATIN, C4, C3, CH50, RPR W RFX, TPO, KERRI #### [facility] , Anion gap [Moles/Vol] 9.2 mmol/L Normal 6.0-15.0 [facility] Comment on above: Performed By: #### T 4F, CK, CRP, TSH3, ESR, CBC, CMP #### [place] [address] [place] #### HBCAB, JUSTINA, HBSAG, ALDOLASE, HCV RX PCR, HBSAB, THYGLOB AB, CHROMATIN, C4, C3, CH50, RPR W RFX, TPO, KERRI #### [facility] , AST [Catalytic activity/Vol] 14 U/L Normal 13-39 [facility] Comment on above: Performed By: #### T 4F, CK, CRP, TSH3, ESR, CBC, CMP #### [place] [address] [place] #### HBCAB, JUSTINA, HBSAG, ALDOLASE, HCV RX PCR, HBSAB, THYGLOB AB, CHROMATIN, C4, C3, CH50, RPR W RFX, TPO, KERRI #### [facility] , Bilirubin [Mass/Vol] 0.5 mg/dL Normal 0.3-1.0 [facility] Comment on above: Performed By: #### T 4F, CK, CRP, TSH3, ESR, CBC, CMP #### [address] #### HBCAB, JUSTINA, HBSAG, ALDOLASE, HCV RX PCR, HBSAB, THYGLOB AB, CHROMATIN, C4, C3, CH50, RPR W RFX, TPO, KERRI #### [facility] , Calcium [Mass/Vol] 9.2 mg/dL Normal 8.6-10.3 [facility] Comment on above: Performed By: #### T 4F, CK, CRP, TSH3, ESR, CBC, CMP #### [place] [address] [place] #### HBCAB, JUSTINA, HBSAG, ALDOLASE, HCV RX PCR, HBSAB, THYGLOB AB, CHROMATIN, C4, C3, CH50, RPR W RFX, TPO, KERRI #### [facility] , Chloride [Moles/Vol] 102 mmol/L Normal 98-107 [facility] Comment on above: Performed By: #### T 4F, CK, CRP, TSH3, ESR, CBC, CMP #### [place] [address] [place] #### HBCAB, JUSTINA, HBSAG, ALDOLASE, HCV RX PCR, HBSAB, THYGLOB AB, CHROMATIN, C4, C3, CH50, RPR W RFX, TPO, KERRI #### [facility] , CO2 [Moles/Vol] 34.1 mmol/L High 21.0-31.0 [facility] Comment on above: Performed By: #### T 4F, CK, CRP, TSH3, ESR, CBC, CMP #### [place] [address] [place] #### HBCAB, JUSTINA, HBSAG, ALDOLASE, HCV RX PCR, HBSAB, THYGLOB AB, CHROMATIN, C4, C3, CH50, RPR W RFX, TPO, KERRI #### [facility] , Creatinine [Mass/Vol] 1.42 mg/dL High 0.60-1.20 [facility] Comment on above: Performed By: #### T 4F, CK, CRP, TSH3, ESR, CBC, CMP #### [facility] [address] #### HBCAB, JUSTINA, HBSAG, ALDOLASE, HCV RX PCR, HBSAB, THYGLOB AB, CHROMATIN, C4, C3, CH50, RPR W RFX, TPO, KERRI #### [facility] , Estimated GFR 38.332 mL/Min Normal [facility] Comment on above: Performed By: #### T 4F, CK, CRP, TSH3, ESR, CBC, CMP #### [address] #### HBCAB, JUSTINA, HBSAG, ALDOLASE, HCV RX PCR, HBSAB, THYGLOB AB, CHROMATIN, C4, C3, CH50, RPR W RFX, TPO, KERRI #### [facility] , Globulin (S) [Mass/Vol] 2.7 g/dL Normal [facility] Comment on above: Performed By: #### T 4F, CK, CRP, TSH3, ESR, CBC, CMP #### [place] [address] [place] #### HBCAB, JUSTINA, HBSAG, ALDOLASE, HCV RX PCR, HBSAB, THYGLOB AB, CHROMATIN, C4, C3, CH50, RPR W RFX, TPO, KERRI #### [facility] , Glucose [Mass/Vol] 95 mg/dL Normal 70-100 [facility] Comment on above: Result Comment: [place] Glucose Reference Range is dependent on time and content of last meal. Glucose of more than 200 mg/dL in a nonstressed, ambulatory subject supports the diagnosis of Diabetes Mellitus. ADA recommended reference range Performed By: #### T 4F, CK, CRP, TSH3, ESR, CBC, CMP #### [address] #### HBCAB, JUSTINA, HBSAG, ALDOLASE, HCV RX PCR, HBSAB, THYGLOB AB, CHROMATIN, C4, C3, CH50, RPR W RFX, TPO, KERRI #### [facility] , Potassium [Moles/Vol] 4.3 mmol/L Normal 3.5-5.1 [facility] Comment on above: Performed By: #### T 4F, CK, CRP, TSH3, ESR, CBC, CMP #### [place] [address] [place] #### HBCAB, JUSTINA, HBSAG, ALDOLASE, HCV RX PCR, HBSAB, THYGLOB AB, CHROMATIN, C4, C3, CH50, RPR W RFX, TPO, KERRI #### [facility] , Protein [Mass/Vol] 6.4 g/dL Normal 6.4-8.9 [facility] Comment on above: Performed By: #### T 4F, CK, CRP, TSH3, ESR, CBC, CMP #### [place] [address] [place] #### HBCAB, JUSTINA, HBSAG, ALDOLASE, HCV RX PCR, HBSAB, THYGLOB AB, CHROMATIN, C4, C3, CH50, RPR W RFX, TPO, KERRI #### [facility] , Sodium [Moles/Vol] 141 mmol/L Normal 136-145 [facility] Comment on above: Performed By: #### T 4F, CK, CRP, TSH3, ESR, CBC, CMP #### [place] [address] [place] #### HBCAB, JUSTINA, HBSAG, ALDOLASE, HCV RX PCR, HBSAB, THYGLOB AB, CHROMATIN, C4, C3, CH50, RPR W RFX, TPO, KERRI #### [facility] , Urea nitrogen [Mass/Vol] 22 mg/dL Normal 7-25 [facility] Comment on above: Performed By: #### T 4F, CK, CRP, TSH3, ESR, CBC, CMP #### [facility] [address] [place] [address] [place] #### HBCAB, JUSTINA, HBSAG, ALDOLASE, HCV RX PCR, HBSAB, THYGLOB AB, CHROMATIN, C4, C3, CH50, RPR W RFX, TPO, KERRI #### [facility] , Creatine Kinaseon 07-31-2024 CK [Catalytic activity/Vol] 23 U/L Low 30-223 [facility] Comment on above: Result Comment: PERF ORMED BY: [place] [address] PATHOLOGIST BILLPOSTER SARAHI JUAREZ M.D. Performed By: #### T 4F, CK, CRP, TSH3, ESR, CBC, CMP #### [facility] [address] [place] [address] [place] #### HBCAB, JUSTINA, HBSAG, ALDOLASE, HCV RX PCR, HBSAB, THYGLOB AB, CHROMATIN, C4, C3, CH50, RPR W RFX, TPO, KERRI #### [facility] , Creatine kinase [Enzymatic a ctivity/volume] in Serum or PlasmaOrdered By: Beti Ham on 07-31-2024 CK [Catalytic activity/Vol] Creatine kinase [Enzymatic activity/volume] in Serum or Plasma Low 30-223 [facility] Creatinine [Mass/volume] in Serum or PlasmaOrdered By: Beti Ham on 07-31-2024 Creatinine [Mass/Vol] Creatinine [Mass/volume] in Serum or Plasma High 0.60-1.20 [facility] Eosinophils Auto (Bld) [#/Vo l]Ordered By: Beti Ham on 07-31-2024 Eosinophils (Bld) [#/Vol] Automated eosinophil count 0.0-0.45 [facility] Eosinophils/100 WBC Auto (Bl d)Ordered By: Beti Ham on 07-31-2024 Eosinophils/100 WBC (Bld) Automated eosinophil % . [facility] Erythrocyte Sedimentation Ra [place] 07-31-2024 ESR (Bld) [Velocity] 58 mm/h High 0-29 [facility] Comment on above: Result Comment: PERF ORMED BY: [place] [address] PATHOLOGIST BILLPOSTER SARAHI JUAREZ M.D. Performed By: #### T 4F, CK, CRP, TSH3, ESR, CBC, CMP #### [address] #### HBCAB, JUSTINA, HBSAG, ALDOLASE, HCV RX PCR, HBSAB, THYGLOB AB, CHROMATIN, C4, C3, CH50, RPR W RFX, TPO, KERRI #### [facility] , Erythrocyte distribution wid th Auto (RBC) [Ratio]Ordered By: Beti Ham on 07-31-2024 Erythrocyte distribution width (RBC) [Ratio] Erythrocyte distribution width [Ratio] by Automated count 11.9-15.3 [facility] Erythrocyte sedimentation ra te by Photometric methodOrdered By: Beti Ham on 07-31-2024 ESR Photometric method (Bld) [Velocity] Erythrocyte sedimentation rate by Photometric method High 0-29 [facility] Free T4 (Free Thyroxine)on 0 07-31-2024 Free T4 [Mass/Vol] 0.80 ng/dL Normal 0.61-1.12 [facility] Comment on above: Performed By: #### T 4F, CK, CRP, TSH3, ESR, CBC, CMP #### [place] [address] [place] #### HBCAB, JUSTINA, HBSAG, ALDOLASE, HCV RX PCR, HBSAB, THYGLOB AB, CHROMATIN, C4, C3, CH50, RPR W RFX, TPO, KERRI #### [facility] , Globulin Calc (S) [Mass/Vol] Ordered By: Beti Ham on 07-31-2024 Globulin (S) [Mass/Vol] Serum globulin measurement by calculation (mass/volume) [facility] Glucose [Mass/volume] in Ser um or PlasmaOrdered By: Beti Ham on 07-31-2024 Glucose [Mass/Vol] Glucose [Mass/volume] in Serum or Plasma 70-100 [facility] Comment on above: ADA recommended refe rence rangeRandom Glucose Reference Range is dependent on time and content of last meal. Glucose of more than 200 mg/dL in a nonstressed, ambulatory subject supports the diagnosis of Diabetes Mellitus. Hematocrit Auto (Bld) [Volum e fraction]Ordered By: Btei Ham on 07-31-2024 Hematocrit (Bld) [Volume fraction] Hematocrit [Volume Fraction] of Blood by Automated count 34.0-46.4 [facility] Hemoglobin [Mass/volume] in BloodOrdered By: Beti Suttonrow on 07-31-2024 Hemoglobin (Bld) [Mass/Vol] Hemoglobin [Mass/volume] in Blood 11.8-15.4 [facility] Hep C Ab wRfx to Qnt PCRon 0 07-31-2024 Hepatitis C Virus Antibody Non-Reactive Normal Non Reactive [facility] Comment on above: Performed By: #### T 4F, CK, CRP, TSH3, ESR, CBC, CMP #### [facility] [address] [place] [address] [place] #### HBCAB, JUSTINA, HBSAG, ALDOLASE, HCV RX PCR, HBSAB, THYGLOB AB, CHROMATIN, C4, C3, CH50, RPR W RFX, TPO, KERRI #### [facility] , Interpretation Hepatitis C Comment Normal . [facility] Comment on above: Result Comment: Not infected with HCV unless early or acute infection is suspected (which may be delayed in an immunocompromised individual), or other evidence exists to indicate HCV infection. Performed By: #### T 4F, CK, CRP, TSH3, ESR, CBC, CMP #### [facility] [address] [place] [address] [place] #### HBCAB, JUSTINA, HBSAG, ALDOLASE, HCV RX PCR, HBSAB, THYGLOB AB, CHROMATIN, C4, C3, CH50, RPR W RFX, TPO, KERRI #### [facility] , Hepatitis B Core Antibodyon 07-31-2024 Hepatitis B Core Antibody Negative Normal Negative [facility] Comment on above: Result Comment: Perf ormed at: - [facility] [address] [id number] Appeals Writer: Iain Siegel PhD, Phone: [phone] Performed By: #### T 4F, CK, CRP, TSH3, ESR, CBC, CMP #### [place] [address] [place] #### HBCAB, JUSTINA, HBSAG, ALDOLASE, HCV RX PCR, HBSAB, THYGLOB AB, CHROMATIN, C4, C3, CH50, RPR W RFX, TPO, KERRI #### [facility] , Hepatitis B Surface Antibody on 07-31-2024 Hepatitis B Surface Antibody Non-Reactive Normal . [facility] Comment on above: Result Comment: Non Reactive: Not immune to HBV infection. Equivocal: Unable to determine if anti-HBs is present at levels consistent with immunity. Reactive: Anti-HBs concentration detected at greater than 10 mIU/mL. Individual is considered to be immune to infection with HBV. Performed By: #### T 4F, CK, CRP, TSH3, ESR, CBC, CMP #### [place] [address] [place] #### HBCAB, JUSTINA, HBSAG, ALDOLASE, HCV RX PCR, HBSAB, THYGLOB AB, CHROMATIN, C4, C3, CH50, RPR W RFX, TPO, KERRI #### [facility] , Hepatitis B Surface Antigeno n 07-31-2024 HBsAg Screen Negative Normal Negative [facility] Comment on above: Result Comment: PERF ORMED BY: [place] [address] PATHOLOGIST BILLPOSTER SARAHI JUAREZ M.D. Performed By: #### T 4F, CK, CRP, TSH3, ESR, CBC, CMP #### [place] [address] [place] #### HBCAB, JUSTINA, HBSAG, ALDOLASE, HCV RX PCR, HBSAB, THYGLOB AB, CHROMATIN, C4, C3, CH50, RPR W RFX, TPO, KERRI #### [facility] , Leukocytes [#/volume] correc umang for nucleated erythrocytes in Blood by Automated counOrdered By: Beti Ham on 07-31-2024 WBC corrected for nucl RBC Auto (Bld) [#/Vol] Leukocytes [#/volume] corrected for nucleated erythrocytes in Blood by Automated coun 3.8-11.6 [facility] Lymphocytes Auto (Bld) [#/Vo l]Ordered By: Beti Ham on 07-31-2024 Lymphocytes (Bld) [#/Vol] Lymphocytes [#/volume] in Blood by Automated count 1.00-4.8 [facility] Lymphocytes/100 WBC Auto (Bl d)Ordered By: Beti Ham on 07-31-2024 Lymphocytes/100 WBC (Bld) Lymphocytes/100 leukocytes in Blood by Automated count . [facility] MCH Auto (RBC) [Entitic mass ]Ordered By: Beti Ham on 07-31-2024 MCH (RBC) [Entitic mass] MCH [Entitic mass] by Automated count High 24.7-34.3 [facility] MCHC Auto (RBC) [Mass/Vol]Or dered By: Beti Ham on 07-31-2024 MCHC (RBC) [Mass/Vol] MCHC [Mass/volume] by Automated count 32.0-35.0 [facility] MCV Auto (RBC) [Entitic vol] Ordered By: Beti Ham on 07-31-2024 MCV (RBC) [Entitic vol] MCV [Entitic vol ume] by Automated count High 80-100 [facility] Monocytes Auto (Bld) [#/Vol] Ordered By: Beti Ham on 07-31-2024 Monocytes (Bld) [#/Vol] Automated blood monocyte count 0.0-0.8 [facility] Monocytes/100 WBC Auto (Bld) Ordered By: Beti Ham on 07-31-2024 Monocytes/100 WBC (Bld) Automated monocyte % . [facility] Neutrophils Auto (Bld) [#/Vo l]Ordered By: Beti Ham on 07-31-2024 Neutrophils (Bld) [#/Vol] Neutrophils [#/volume] in Blood by Automated count 1.8-7.7 [facility] Neutrophils/100 WBC Auto (Bl d)Ordered By: Beti Ham on 07-31-2024 Neutrophils/100 WBC (Bld) Automated neutrophil % . [facility] No Panel InformationOrdered By: Beti Ham on 07-31-2024 Estimated GFR (CKD-EPI) 38.332 mL/Min [facility] Creatinine Clearance (Chem N/A [facility] Nucleated erythrocytes [Pres ence] in Blood by Automated countOrdered By: Beti Ham on 07-31-2024 Nucleated RBC Auto Ql (Bld) Nucleated erythrocytes [Presence] in Blood by Automated count 0-0.5 [facility] Platelet mean volume Auto (B ld) [Entitic vol]Ordered By: Beti Ham on 07-31-2024 Platelet mean volume (Bld) [Entitic vol] Platelet mean volume [Entitic volume] in Blood by Automated count 6.3-10.7 [facility] Platelets Auto (Bld) [#/Vol] Ordered By: Beti Ham on 07-31-2024 Platelets (Bld) [#/Vol] Platelets [#/vol ume] in Blood by Automated count 150-450 [facility] Potassium [Moles/volume] in Serum or PlasmaOrdered By: Beti Ham on 07-31-2024 Potassium [Moles/Vol] Potassium [Moles/volume] in Serum or Plasma 3.5-5.1 [facility] Protein [Mass/volume] in Ser um or PlasmaOrdered By: Beti Ham on 07-31-2024 Protein [Mass/Vol] Protein [Mass/volume] in Serum or Plasma 6.4-8.9 [facility] RBC Auto (Bld) [#/Vol]Ordere d By: Beti Ham on 07-31-2024 RBC (Bld) [#/Vol] Erythrocytes [#/volume] in Blood by Automated count Low 3.60-5.00 [facility] RPR w/rfx to Quant TP Abson 07-31-2024 RPR, Rfx Quant RPR Non-Reactive Normal Non Reactive [facility] Comment on above: Result Comment: Perf ormed at: - [facility] [address] [id number] Appeals Writer: Iain Siegel PhD, Phone: [phone] PERFORMED BY: [place] [address] PATHOLOGIST BILLPOSTER SARAHI JUAREZ M.D. Performed By: #### T 4F, CK, CRP, TSH3, ESR, CBC, CMP #### [place] [address] [place] #### HBCAB, JUSTINA, HBSAG, ALDOLASE, HCV RX PCR, HBSAB, THYGLOB AB, CHROMATIN, C4, C3, CH50, RPR W RFX, TPO, KERRI #### [facility] , Serum or plasma albumin/glob ulin mass ratioOrdered By: Beti Ham on 07-31-2024 Albumin/Globulin [Mass ratio] Serum or plasma albumin/globulin mass ratio [facility] Serum or plasma anion gap de terminationOrdered By: Beti Ham on 07-31-2024 Anion gap [Moles/Vol] Serum or plasma anion gap determination 6.0-15.0 [facility] Sodium [Moles/volume] in Ser um or PlasmaOrdered By: Beti Ham on 07-31-2024 Sodium [Moles/Vol] Sodium [Moles/volume] in Serum or Plasma 136-145 [facility] Thyroid Peroxidase Antibodie son 07-31-2024 Thyroid Peroxidase Antibodies 12 [IU]/mL Normal 0-34 [facility] Comment on above: Result Comment: Perf ormed at: CB - [facility] [address] [id number] Appeals Writer: Iain Siegel PhD, Phone: [phone] Performed By: #### T 4F, CK, CRP, TSH3, ESR, CBC, CMP #### [place] [address] [place] #### HBCAB, JUSTINA, HBSAG, ALDOLASE, HCV RX PCR, HBSAB, THYGLOB AB, CHROMATIN, C4, C3, CH50, RPR W RFX, TPO, KERRI #### [facility] , Thyroid Stimulating Hormoneo n 07-31-2024 TSH Qn 2.45 m[IU]/L Normal 0.45-5.33 [facility] Comment on above: Result Comment: PERF ORMED BY: [place] [address] PATHOLOGIST BILLPOSTER SARAHI JUAREZ M.D. Performed By: #### T 4F, CK, CRP, TSH3, ESR, CBC, CMP #### [facility] [address] [place] [address] #### HBCAB, JUSTINA, HBSAG, ALDOLASE, HCV RX PCR, HBSAB, THYGLOB AB, CHROMATIN, C4, C3, CH50, RPR W RFX, TPO, KERRI #### [facility] , Thyrotropin [Units/volume] i n Serum or PlasmaOrdered By: Beti Ham on 07-31-2024 TSH Qn Thyrotropin [Units/volume] in Serum or Plasma 0.45-5.33 [facility] Thyroxine (T4) free [Mass/vo lume] in Serum or PlasmaOrdered By: Beti Ham on 07-31-2024 Free T4 [Mass/Vol] Thyroxine (T4) free [Mass/volume] in Serum or Plasma 0.61-1.12 [facility] Urea nitrogen [Mass/volume] in Serum or PlasmaOrdered By: Beti Ham on 07-31-2024 Urea nitrogen [Mass/Vol] Urea nitrogen [Mass/volume] in Serum or Plasma 7-25 [facility] WBC Auto (Bld) [#/Vol]Ordere d By: Beti Ham on 07-31-2024 WBC (Bld) [#/Vol] Leukocytes [#/volume] in Blood by Automated count 3.8-11.6 [facility] Office Visiton 05-21-2024 Follow-up visit [id number] Linda Nascimento 1950 F Date Provider Department Center 05/21/2024 ENOCH RAMIREZ JUAN [facility] Family History Problem Relation Age of Onset Lung cancer Mother Stroke Father Family Status - Relation Status Age at Mother Father Level of Service:90776 OR OFFICE/OUTPATIENT ESTABLISHED LOW MDM 20 MIN Normal [facility] Herpes Simplex Virus By PCRo n 05-07-2024 HSV 1 Subtype by PCR Not detected Normal [facility] Comment on above: Order Comment: CALL doctor LB474 tel. [phone], FAX [phone] CALL doctor LB474 tel. [phone], FAX [phone] Result Comment: The specimen submitted for testing did not meet [facility] submission guidelines. Testing was performed on a specimen that did not meet validated specimen type requirements. Performance characteristics of this assay may be affected. Interpret results with caution. Please refer to the [employer] Directory for information on specimen acceptability: https://www.Civo/testing Performed By: #### A 0095 #### [facility] [address] [place] [id number] [phone] HSV 2 Subtype by PCR Not detected Normal [facility] Comment on above: Order Comment: CALL doctor LB474 tel. [phone], FAX [phone] CALL doctor LB474 tel. [phone], FAX [phone] Result Comment: The specimen submitted for testing did not meet ARUP submission guidelines. Testing was performed on a specimen that did not meet validated specimen type requirements. Performance characteristics of this assay may be affected. Interpret results with caution. Please refer to the [employer] Directory for information on specimen acceptability: https://www.Civo/testing INTERPRETIVE INFORMATION: HSV-1 and HSV-2 Subtype by PCR A negative result does not rule out the presence of PCR inhibitors in the patient specimen or test-specific nucleic acid in concentrations below the level of detection by this test. This test was developed and its performance characteristics determined by [facility] [employer]. It has not been cleared or approved by the [place] Food and Drug Administration. This test was performed in a CLIA certified laboratory and is intended for clinical purposes. Performed By: [facility] [employer] [facility] [address] [place] [address] Technical Adjuster: Rodrigo Milner MD, PhD CLIA Number: [id number] Performed By: #### A 0095 #### [facility] [address] [place] [id number] Rejection Notificationon Reason see below [facility] Comment on above: Order Comment: CALL doctor LB474 tel. [phone], FAX [phone] CALL doctor LB474 tel. [phone], FAX [phone] Result Comment: Unab le to perform testing; specimen quantity not sufficient. To perform testing the specimen will need to be recollected. QNS Performed By: #### R EJEC #### [facility] [address] [place] [id number] Rejected Test [id number] [facility] Comment on above: Order Comment: CALL doctor LB474 tel. [phone], FAX [phone] CALL doctor LB474 tel. [phone], FAX [phone] Performed By: #### R EJEC #### [facility] [address] [place] [id number] [facility] Miscellaneous test 1on 05-03-2024 [facility] [id number] [facility] Comment on above: Order Comment: CALL doctor LB474 tel. [phone], FAX [phone] Performed By: #### 9 [id number] #### [facility] [address] [place] [id number] Culture, Wound Aerobic, Anae robicon 05-03-2024 Culture, Wound Aerobic, Anaerobic ORDER#: [id number] ORDERED BY: MICHELLE QUINTERO SOURCE: Face Left eye ocular fluid COLLECTED: 05/03/24 07:26 ANTIBIOTICS AT MANJINDER.: RECEIVED : 05/03/24 07:39 CALL doctor LB474 tel. [phone], FAX [phone] Culture, Wound Aerobic, Anaerobic FINAL 05/08/24 08:22 Direct Exam: NO NEUTROPHILS SEEN Direct Exam: NO ORGANISMS SEEN Cult,Aerobe/Anaerobe : NO GROWTH 5 DAYS Performed at [facility] [address] [place] [phone] [facility] Comment on above: Performed By: #### I CWAN #### [facility] [address] [place] [id number] Herpes Simplex Virus By PCRo n 05-03-2024 Herpes Simplex Virus Subtype Source eye Normal [facility] Comment on above: Order Comment: CALL doctor LB474 tel. [phone], FAX [phone] CALL doctor LB474 tel. [phone], FAX [phone] Result Comment: ocul ar fld Performed By: #### A 0095 #### [facility] [address] [place] [address] CBC AUTO DIFFon 10-14-2022 BASO # 0.1 103/ul Normal 0.0-0.1 [facility] Comment on above: Performed By: #### C BC ####[facility] [address] [place] [address]Dr. Slick Broderick Basophils/100 WBC (Bld) 0.6 % Normal 0.2-2.0 [facility] Comment on above: Performed By: #### C BC ####[facility] [address] [place] [address]Dr. Slick Broderick EO # 0.4 103/ul Normal 0.0-0.7 [facility] Comment on above: Performed By: #### C BC ####[facility] [address] [place] [address]Dr. Slick Broderick Eosinophils/100 WBC (Bld) 3.9 % Normal 0.9-7.0 [facility] Comment on above: Performed By: #### C BC ####[facility] [address] [place] [address]Dr. Slick Broderick Erythrocyte distribution width (RBC) [Ratio] 13.2 % Normal 11.0-15.0 [facility] Comment on above: Performed By: #### C BC ####[facility] [address] [place], [place] [address]Dr. Slick Broderick Hematocrit (Bld) [Volume fraction] 32.4 % Critically low 36.0-48.0 [facility] Comment on above: Performed By: #### C BC ####[facility] [address] [place] [id number]. Slick Broderick Hemoglobin (Bld) [Mass/Vol] 10.4 g/dL Critically low 12.0-16.0 [facility] Comment on above: Performed By: #### C BC ####[facility] [address] [place] [address]Dr. Slick Broderick IG # 0.19 10e3/ul Critically high 0.00-0.03 [facility] Comment on above: Performed By: #### C BC ####[facility] [address] [place] [address]Dr. Slick Broderick IG % 2.1 % Critically high 0.0-0.5 [facility] Comment on above: Performed By: #### C BC ####[facility] [address] [place], [place] [address]Dr. Slick Broderick LYMPH # 1.0 103/ul Critically low 1.2-3.8 [facility] Comment on above: Performed By: #### C BC ####[facility] [address] [place] [address]Dr. Slick Broderick Lymphocytes/100 WBC (Bld) 11.4 % Critically low 20.5-60.0 [facility] Comment on above: Performed By: #### C BC ####[facility] [address] [place] [address]Dr. Slick Broderick MANUAL DIFF REQ NO Normal [facility] Comment on above: Performed By: #### C BC ####[facility] [address] [place], [place] [address]Dr. Slick Broderick MCH (RBC) [Entitic mass] 32.0 pg Normal 26.7-34.0 [facility] Comment on above: Performed By: #### C BC ####[facility] [address] [place] [address]Dr. Slick Broderick MCHC (RBC) [Mass/Vol] 32.1 g/dL Normal 29.9-35.2 [facility] Comment on above: Performed By: #### C BC ####[facility] [address] [place] [address]Dr. Slick Broderick MCV (RBC) [Entitic vol] 99.7 fL Critically high 81.0-99 .0 [facility] Comment on above: Performed By: #### C BC ####[facility] [address] [place] [address]Dr. Slick Broderick MONO # 1.0 103/ul Critically high 0.3-0.8 [facility] Comment on above: Performed By: #### C BC ####[facility] [address] [place] [address]Dr. Slick Broderick Monocytes/100 WBC (Bld) 10.8 % Normal 1.7-12.0 [facility] Comment on above: Performed By: #### C BC ####[facility] [address] [place], [place] [address]Dr. Slick Broderick NEUT # 6.4 103/ul Normal 1.4-6.5 [facility] Comment on above: Performed By: #### C BC ####[facility] [address] [place], [place] [address]Dr. Slick Broderick Neutrophils/100 WBC (Bld) 71.2 % Normal 43.0-75.0 [facility] Comment on above: Performed By: #### C BC ####[facility] [address] [place], [place] [address]Dr. Slick Broderick Platelet mean volume (Bld) [Entitic vol] 9.8 fL Normal 9.5-13.5 [facility] Comment on above: Performed By: #### C BC ####[facility] [address] [place], [place] [address]Dr. Slick Broderick PLT 174 103/ul Normal 150-450 [facility] Comment on above: Performed By: #### C BC ####[facility] [address] [place], [place] [address]Dr. Slick Davie RBC 3.25 106/ul Critically low 4.20-5.40 [facility] Comment on above: Performed By: #### C BC ####[facility] [address] [place] [address]Dr. Slick Broderick WBC 8.9 103/ul Normal 4.0-11.0 [facility] Comment on above: Performed By: #### C BC ####[facility] [address] [place] [address]Dr. Slick Broderick CRPon 10-14-2022 CRP 0.5 mg/dL Normal <=1.0 [facility] Comment on above: Performed By: #### C RP, BMP ####[facility] [address] [place] [address]Dr. Slick Broderick D-DIMERon 10-14-2022 D-DIMER 0.86 mg/L FEU Critically high <=0.59 [facility] Comment on above: Performed By: #### D DIM ####[facility] [address] [place], [place] [address]Dr. Slick Broderick D-DIMER COMMENTS SEE BELOW Normal [facility] Comment on above: Result Comment: Incr [...] generalized hospitalization. Performed By: #### D DIM ####[facility] [address] [place] [address]Dr. Slick Borderick PROF CHEM 8 (BAS METB)on Anion gap [Moles/Vol] 10.1 mmol/L Normal [facility] Comment on above: Performed By: #### C RP, BMP ####[facility] [address] [place] [address]Dr. Slick Broderick Calcium [Mass/Vol] 9.3 mg/dL Normal 8.5-10.1 [facility] Comment on above: Performed By: #### C RP, BMP ####[facility] [address] [place] [address]Dr. Slick Broderick Chloride [Moles/Vol] 98 mmol/L Normal 98-107 [facility] Comment on above: Performed By: #### C RP, BMP ####[facility] [address] [place] [address]Dr. Slick Broderick CO2 [Moles/Vol] 30.3 mmol/L Normal 21.0-32.0 [facility] Comment on above: Performed By: #### C RP, BMP ####[facility] [address] [place] [address]Dr. Slick Broderick Creatinine [Mass/Vol] 2.15 mg/dL Critically high 0.55-1.02 [facility] Comment on above: Performed By: #### C RP, BMP ####[facility] [address] [place] [address]Dr. Slick Davie EGFR-AF KENYAN 27 mL/min/1.73m2 Critically low >=60 [facility] Comment on above: Performed By: #### C RP, BMP ####[facility] [address] [place] [address]Dr. Slick Broderick EGFR-NON AF KENYAN 22 mL/min/1.73m2 Critically low >=60 [facility] Comment on above: Performed By: #### C RP, BMP ####[facility] [address] [place] [address]Dr. Slick Broderick Glucose [Mass/Vol] 116 mg/dL Critically high 74-106 [facility] Comment on above: Performed By: #### C RP, BMP ####[facility] [address] [place] [address]Dr. Slick Broderick Potassium [Moles/Vol] 4.4 mmol/L Normal 3.5-5.1 [facility] Comment on above: Performed By: #### C RP, BMP ####[facility] [address] [place] [address]Dr. Meaganwendie Broderick Sodium [Moles/Vol] 134 mmol/L Critically low 136-145 [facility] Comment on above: Performed By: #### C RP, BMP ####[facility] [address] [place] [address]Dr. Slick Broderick Urea nitrogen [Mass/Vol] 33.0 mg/dL Critically high 7.0-18.0 [facility] Comment on above: Performed By: #### C RP, BMP ####[facility] [address] [place] [address]Dr. Slick Broderick Urea nitrogen/Creatinine [Mass ratio] 15.3 mg/mg Normal [facility] Comment on above: Performed By: #### C RP, BMP ####[facility] [address] [place] [address]Dr. Slick Broderick US JENNY DOP LEG LTon 10-15-19 23 US JENNY DOP LEG LT Normal [facility] XR FEMUR LTon 10-14-2022 XR FEMUR LT Normal [facility] ECHOCARDIO M/2D COMPLETEon 0 09-14-2022 ECHOCARDIO M/2D COMPLETE Normal [facility] PRBC LEUKOREDUCEDon 06-09-20 22 PRBC LEUKOREDUCED Normal [facility] Comment on above: Performed By: #### P RBC ####[facility] [address] [place], [place] [address]Dr. Meaganwendie Broderick BNPon 04-23-2022 Natriuretic peptide B (Bld) [Mass/Vol] 76819.0 pg/mL Critically high <=900.0 [facility] Comment on above: Performed By: #### C MP, CMADM, BNP ####[facility] [address] [place] [address]Dr. Slick Broderick CARDIAC REYMUNDO ADMITon 022 CK [Catalytic activity/Vol] 121 U/L Normal 26-192 [facility] Comment on above: Performed By: #### C MP, CMADM, BNP ####[facility] [address] [place] [address]Dr. Slick Broderick CK.MB [Mass/Vol] 5.67 ng/mL Critically high <=3.60 [facility] Comment on above: Performed By: #### C MP, CMADM, BNP ####[facility] [address] [place] [address]Dr. Slick Broderick HSTROP 3667.9 pg/mL Critically high 4.0-51.3 [facility] Comment on above: Result Comment: CUT- OFF POINTS HAVE BEEN ESTABLISHED BASED ON THE FOURTH UNIVERSAL DEFINITIONS OF MYOCARDIALINFARCTION. THE UPPER REFERENCE LIMIT (URL) OF TROPONIN, DEFINED THE 99TH PERCENTILE OFcTnI DISTRIBUTION IN A REFERENCE POPULATION, HAS BEEN CONFIRMED THE DECISION THRESHOLDFOR DC DIAGNOSIS. Performed By: #### C MP, CMADM, BNP ####[facility] [address] [place] [address]Dr. Slick Davie NEHEMIAH 225 ng/mL Critically high 9-82 [facility] Comment on above: Performed By: #### C MP, CMADM, BNP ####[facility] [address] [place] [address]Dr. Slick Broderick CBC AUTO DIFFon 04-23-2022 BASO # 0.0 103/ul Normal 0.0-0.1 [facility] Comment on above: Performed By: #### C BC ####[facility] [address] [place] [address]Dr. Meaganwendie Broderick Basophils/100 WBC (Bld) 0.3 % Normal 0.2-2.0 [facility] Comment on above: Performed By: #### C BC ####[facility] [address] [place] [address]Dr. Meaganwendie Broderick EO # 0.0 103/ul Normal 0.0-0.7 [facility] Comment on above: Performed By: #### C BC ####[facility] [address] [place] [address]Dr. Slick Broderick Eosinophils/100 WBC (Bld) 0.3 % Critically low 0.9-7.0 [facility] Comment on above: Performed By: #### C BC ####[facility] [address] [place] [address]Dr. Slick Broderick Erythrocyte distribution width (RBC) [Ratio] 14.0 % Normal 11.0-15.0 [facility] Comment on above: Performed By: #### C BC ####[facility] [address] [place] [address]Dr. Slick Broderick Hematocrit (Bld) [Volume fraction] 21.9 % Critically low 36.0-48.0 [facility] Comment on above: Performed By: #### C BC ####[facility] [address] [place] [address]Dr. Slick Davie Hemoglobin (Bld) [Mass/Vol] 7.1 g/dL Critically low 12.0-16.0 [facility] Comment on above: Performed By: #### C BC ####[facility] [address] [place], [place] [address]Dr. Slick Broderick IG # 0.04 10e3/ul Critically high 0.00-0.03 [facility] Comment on above: Performed By: #### C BC ####[facility] [address] [place], [place] [address]Dr. Slick Broderick IG % 0.4 % Normal 0.0-0.5 [facility] Comment on above: Performed By: #### C BC ####[facility] Owjdgjmdmh507165 [address] [place], [place] [address]DrEmma Slick Davie LYMPH # 0.8 103/ul Critically low 1.2-3.8 [facility] Comment on above: Performed By: #### C BC ####[facility] Owwhskvjfj3[address] [place], [place] [address]DrEmma Broderick Lymphocytes/100 WBC (Bld) 7.7 % Critically low 20.5-60.0 [facility] Comment on above: Performed By: #### C BC ####[facility] Spgupzlzmk374[address] [place], [place] [address]DrEmma Broderick MANUAL DIFF REQ NO Normal [facility] Comment on above: Performed By: #### C BC ####[facility] Xnythgtawy00[address] [place], [place] [address]DrEmma Broderick MCH (RBC) [Entitic mass] 29.3 pg Normal 26.7-34.0 [facility] Comment on above: Performed By: #### C BC ####[facility] Bmadvbpclj6675 [place] [id number]. Slick Davie MCHC (RBC) [Mass/Vol] 32.4 g/dL Normal 29.9-35.2 [facility] Comment on above: Performed By: #### C BC ####[facility] Albpojlyqz4841 [place] [id number]. Slick Broderick MCV (RBC) [Entitic vol] 90.5 fL Normal 81.0-99.0 [facility] Comment on above: Performed By: #### C BC ####[facility] Wvclnsrgeg5[address] [place], [place] [address]Dr. Slick Broderick MONO # 1.0 103/ul Critically high 0.3-0.8 [facility] Comment on above: Performed By: #### C BC ####[facility] Vinqvthouj465[address] [place], [place] [address]Dr. Slick Broderick Monocytes/100 WBC (Bld) 9.6 % Normal 1.7-12.0 [facility] Comment on above: Performed By: #### C BC ####[facility] Cvmqscffmz549[address] [place], [place] [address]Dr. Slick Broderick NEUT # 8.6 103/ul Critically high 1.4-6.5 [facility] Comment on above: Performed By: #### C BC ####[facility] Imahnpwtqw5232[address] [place], [place] [address]Dr. Slick Broderick Neutrophils/100 WBC (Bld) 81.7 % Critically high 43.0-75.0 [facility] Comment on above: Performed By: #### C BC ####[facility] Icxfaulljw3247[address] [place], [place] [address]Dr. Slick Broderick Platelet mean volume (Bld) [Entitic vol] 10.0 fL Normal 9.5-13.5 [facility] Comment on above: Performed By: #### C BC ####[facility] Leepnjczgb35[address] [place], [place] [address]Dr. Slick Broderick PLT 195 103/ul Normal 150-450 [facility] Comment on above: Performed By: #### C BC ####[facility] Ehdomqvxwb6066 [place], [place] [address]Lc. Slick Broderick RBC 2.42 106/ul Critically low 4.20-5.40 [facility] Comment on above: Performed By: #### C BC ####[facility] Xiknfyocph7760 [place], [place] [address]Sf. Slick Broderick WBC 10.5 103/ul Normal 4.0-11.0 [facility] Comment on above: Performed By: #### C BC ####[facility] Dgzduqokqq6725 [place], [place] [address]Yn. Slick [address] CT HEAD WO CONon 04-23-2022 CT HEAD WO CON Normal [facility] CULTURE BLOODon 04-23-2022 Microscopic examination of blood, culture Culture Observations: NO GROWTH AT 5 DAYS. Normal [facility] Comment on above: Performed By: #### B LDCX2 ####[facility] Agehsjztky8799 [place], [place] [address]Ej. Slick Broderick Microscopic examination of blood, culture Culture Observations: NO GROWTH AT 5 DAYS. Normal [facility] Comment on above: Performed By: #### B LDCX1 ####[facility] Kkvumyqjem5[address] [place] [id number]. Slick Broderick Covid-19 PCR (CVDTB)on 04-12 SARS-CoV-2 (COVID-19) RNA DONNIE+probe Ql (Unsp spec) Not detected Normal NOT DETECTED [facility] Comment on above: Result Comment: When [...] for this test is supported by the [place] of [employer] and Human Service's declaration that [...] be used). Performed By: #### C VDTBH ####[facility] Icwxtkoztt9582 [place] [address]Dr. Slick Broderick LACTATE/LACTIC ACIDon 2021 Lactate [Moles/Vol] 1.2 mmol/L Normal 0.4-1.9 [facility] Comment on above: Performed By: #### L ACT ####[facility] Olgrrdbcqk1776[address] [place], [place] [address]Dr. Slick Broderick PROF 14(COMP METB)on 022 Albumin [Mass/Vol] 2.9 g/dL Critically low 3.4-5.0 [facility] Comment on above: Performed By: #### C MP, CMADM, BNP ####[facility] Fglfsxrcht5621 [place] [address]Dr. Slick Broderick Albumin/Globulin [Mass ratio] 0.9 {ratio} Normal [facility] Comment on above: Performed By: #### C MP, CMADM, BNP ####[facility] Rzrefxiatn8213 [place] [address]Dr. Slick Broderick ALP [Catalytic activity/Vol] 88 U/L Normal 46-116 [facility] Comment on above: Performed By: #### C MP, CMADM, BNP ####[facility] Xnearakuws1628 [place] [address]Dr. Slick Broderick ALT [Catalytic activity/Vol] 22 U/L Normal 14-59 [facility] Comment on above: Performed By: #### C MP, CMADM, BNP ####[facility] Srhrpewrzz1393 [place] [address]Dr. Slick Broderick Anion gap [Moles/Vol] 14.0 mmol/L Normal [facility] Comment on above: Performed By: #### C MP, CMADM, BNP ####[facility] Taqeybinxl0657 [place] [address]Dr. Slick Broderick AST [Catalytic activity/Vol] 26 U/L Normal 15-37 [facility] Comment on above: Performed By: #### C MP, CMADM, BNP ####[facility] Uirxeegdcc7360 [place] [address]Dr. Slick Broderick Bilirubin [Mass/Vol] 0.5 mg/dL Normal 0.2-1.0 [facility] Comment on above: Performed By: #### C MP, CMADM, BNP ####[facility] Koukihvsrn6848 [place] [address]Dr. Slick Broderick Calcium [Mass/Vol] 9.7 mg/dL Normal 8.5-10.1 [facility] Comment on above: Performed By: #### C MP, CMADM, BNP ####[facility] Rfdyhzgdva8084 [place] [address]Dr. Slick Broderick Chloride [Moles/Vol] 105 mmol/L Normal 98-107 [facility] Comment on above: Performed By: #### C MP, CMADM, BNP ####[facility] Zifkjwlodk9352 [place] [address]Dr. Slick Broderick CO2 [Moles/Vol] 27.0 mmol/L Normal 21.0-32.0 [facility] Comment on above: Performed By: #### C MP, CMADM, BNP ####[facility] Oqocaxvraa3177 [place] [address]Dr. Slick Broderick Creatinine [Mass/Vol] 1.57 mg/dL Critically high 0.55-1.02 [facility] Comment on above: Performed By: #### C MP, CMADM, BNP ####[facility] Demrhugkcx3757 [place] [address]Dr. Slick Broderick EGFR-AF KENYAN 39 mL/min/1.73m2 Critically low >=60 [facility] Comment on above: Performed By: #### C MP, CMADM, BNP ####[facility] Nklxdpyrso6063 [place] [address]Dr. Slick Broderick EGFR-NON AF KENYAN 32 mL/min/1.73m2 Critically low >=60 [facility] Comment on above: Performed By: #### C MP, CMADM, BNP ####[facility] Jtjjiifvjd6543 [place] [address]Dr. Slick Broderick Globulin (S) [Mass/Vol] 3.2 g/dL Normal [facility] Comment on above: Performed By: #### C MP, CMADM, BNP ####[facility] Uwzuhthudc3474 [place] [address]Dr. Slick Broderick Glucose [Mass/Vol] 128 mg/dL Critically high 74-106 [facility] Comment on above: Performed By: #### C MP, CMADM, BNP ####[facility] Exnopeyizy8723 [place] [address]Dr. Slick Broderick Potassium [Moles/Vol] 4.0 mmol/L Normal 3.5-5.1 [facility] Comment on above: Performed By: #### C MP, CMADM, BNP ####[facility] Qnhxjsrlqf20[address] [place], [place] [address]Dr. Slick Broderick Protein [Mass/Vol] 6.1 g/dL Critically low 6.4-8.2 [facility] Comment on above: Performed By: #### C MP, CMADM, BNP ####[facility] Ovraaseifj7359 [place] [address]Dr. Slick Broderick Sodium [Moles/Vol] 142 mmol/L Normal 136-145 [facility] Comment on above: Performed By: #### C MP, CMADM, BNP ####[facility] Udryicfxpo3190 [place] [address]Dr. Slick Broderick Urea nitrogen [Mass/Vol] 34.0 mg/dL Critically high 7.0-18.0 [facility] Comment on above: Performed By: #### C MP, CMADM, BNP ####[facility] Wveknazmmf6662 [place] [address]Dr. Slick Broderick Urea nitrogen/Creatinine [Mass ratio] 21.7 mg/mg Normal [facility] Comment on above: Performed By: #### C MP, CMADM, BNP ####[facility] Bsjxaznvqz5667 [place] [address]Dr. Slick Broderick PROTIMEon 04-23-2022 INR Coag (PPP) [Relative time] 1.10 {INR} Normal [facility] Comment on above: Performed By: #### P T, PTT ####[facility] Ivgltpejbe9304 [place] [address]Dr. Slick Broderick INR GUIDELINES SEE BELOW Normal [facility] Comment on above: Result Comment: EDMUND RED INR: 2.0 - 3.0 CONDITIONS NOT LISTED BELOW 2.5 - 3.5 FOR PROSTHETIC HEART VALVE REPLACEMENT 2.5 - 3.5 RECURRENT THROMBOSIS Performed By: #### P T, PTT ####[facility] Uemwktjzxw7134[address] [place], [place] [address]Dr. Slick Broderick PT Coag (PPP) [Time] 11.8 s Critically high 9.0-11.6 [facility] Comment on above: Performed By: #### P T, PTT ####[facility] Lnpahjmszt09[address] [place], [place] [address]Dr. Slick Broderick PTTon 04-23-2022 aPTT Coag (Bld) [Time] 27.7 s Normal 22.3-36.2 [facility] Comment on above: Performed By: #### P T, PTT ####[facility] Ylfvzjvsij374[address] [place], [place] [address]Dr. Slick Broderick TYPE AND SCREENon 04-23-2022 TYPE AND SCREEN Negative Normal [facility] Comment on above: Performed By: #### T NS ####[facility] Tskpqssemc5823[address] [place], [place] [address]Dr. Slick Broderick XR CHEST 1 Von 04-23-2022 XR CHEST 1 V Normal [facility] CBC AUTO DIFFon 04-22-2022 BASO # 0.0 103/ul Normal 0.0-0.1 [facility] Comment on above: Performed By: #### C BC ####[facility] Eipcbxwsjp549[address] [place], [place] [address]Dr. Slick Broderick Basophils/100 WBC (Bld) 0.3 % Normal 0.2-2.0 [facility] Comment on above: Performed By: #### C BC ####[facility] Uepzktmxwp1206 [place] [id number]. Slick Broderick EO # 0.1 103/ul Normal 0.0-0.7 [facility] Comment on above: Performed By: #### C BC ####[facility] Pkwpliezjh8073 [place] [address]Dr. Slick Broderick Eosinophils/100 WBC (Bld) 1.4 % Normal 0.9-7.0 [facility] Comment on above: Performed By: #### C BC ####[facility] Iskoirsesu888865 [address] [place], [place] [address]Dr. Slick Broderick Erythrocyte distribution width (RBC) [Ratio] 13.8 % Normal 11.0-15.0 [facility] Comment on above: Performed By: #### C BC ####[facility] Vpcshhsixk399165 [address] [place], [place] [address]Dr. Slick Broderick Hematocrit (Bld) [Volume fraction] 27.4 % Critically low 36.0-48.0 [facility] Comment on above: Performed By: #### C BC ####[facility] Xomwhhliav996[address] [place], [place] [address]Dr. Slick Broderick Hemoglobin (Bld) [Mass/Vol] 8.8 g/dL Critically low 12.0-16.0 [facility] Comment on above: Performed By: #### C BC ####[facility] Jwxjqjwjlt4015 [place] [id number]. Slick Broderick IG # 0.04 10e3/ul Critically high 0.00-0.03 [facility] Comment on above: Performed By: #### C BC ####[facility] Nkodbhlrpp6124[address] [place], [place] [address]Dr. Slikc Broderick IG % 0.6 % Critically high 0.0-0.5 [facility] Comment on above: Performed By: #### C BC ####[facility] Mfspjppffw1046 [place] [address]Dr. Slick Broderick LYMPH # 0.7 103/ul Critically low 1.2-3.8 [facility] Comment on above: Performed By: #### C BC ####[facility] Klqzvxmyzn5572 [place] [address]Dr. Meaganwendie Broderick Lymphocytes/100 WBC (Bld) 9.8 % Critically low 20.5-60.0 [facility] Comment on above: Performed By: #### C BC ####[facility] Kondsokuog9751 [place] [address]Dr. Slick Broderick MANUAL DIFF REQ NO Normal [facility] Comment on above: Performed By: #### C BC ####[facility] Jvwwrrrvev3178 [place] [address]Dr. Meaganwendie Broderick MCH (RBC) [Entitic mass] 28.9 pg Normal 26.7-34.0 [facility] Comment on above: Performed By: #### C BC ####[facility] Mdertdomhe842565 [address] [place], [place] [address]Dr. Slick Broderick MCHC (RBC) [Mass/Vol] 32.1 g/dL Normal 29.9-35.2 [facility] Comment on above: Performed By: #### C BC ####[facility] Mxyvopgatw4715 [place] [address]Dr. Slick Broderick MCV (RBC) [Entitic vol] 90.1 fL Normal 81.0-99.0 [facility] Comment on above: Performed By: #### C BC ####[facility] Aepzrpiojm0615 [place] [address]Dr. Slick Broderick MONO # 0.6 103/ul Normal 0.3-0.8 [facility] Comment on above: Performed By: #### C BC ####[facility] Hpedrbhrio08[address] [place], [place] [address]Dr. Slick Broderick Monocytes/100 WBC (Bld) 7.6 % Normal 1.7-12.0 [facility] Comment on above: Performed By: #### C BC ####[facility] Bdagjbucuu7925 [place] [id number]. Slick Broderick NEUT # 5.9 103/ul Normal 1.4-6.5 [facility] Comment on above: Performed By: #### C BC ####[facility] Dfyhumymhc2818 [place] [address]Dr. Slick Broderick Neutrophils/100 WBC (Bld) 80.3 % Critically high 43.0-75.0 [facility] Comment on above: Performed By: #### C BC ####[facility] Momwfescdb2243 [place] [address]Dr. Slick Broderick Platelet mean volume (Bld) [Entitic vol] 9.5 fL Normal 9.5-13.5 [facility] Comment on above: Performed By: #### C BC ####[facility] Rauyzkqdss7206[address] [place], [place] [address]Dr. Slick Broderick PLT 204 103/ul Normal 150-450 [facility] Comment on above: Performed By: #### C BC ####[facility] Mhllbpnjbv594865 [address] [place], [place] [address]Dr. Slick Broderick RBC 3.04 106/ul Critically low 4.20-5.40 [facility] Comment on above: Performed By: #### C BC ####[facility] Lvzoomzlxp359765 [address] [place], [place] [address]Dr. Slcik Broderick WBC 7.3 103/ul Normal 4.0-11.0 [facility] Comment on above: Performed By: #### C BC ####[facility] Odvzafxcpq689565 [address] [place], [place] [address]Dr. Slick Broderick BASO # 0.0 103/ul Normal 0.0-0.1 [facility] Comment on above: Performed By: #### C BC ####[facility] Lziipzgeev[address] [place], [place] [id number]. Slick Broderick Basophils/100 WBC (Bld) 0.5 % Normal 0.2-2.0 [facility] Comment on above: Performed By: #### C BC ####[facility] Rmudyrgdmh2040[address] [place], [place] [address]Dr. Slick Broderick EO # 0.6 103/ul Normal 0.0-0.7 [facility] Comment on above: Performed By: #### C BC ####[facility] Qublfsrorx6031 [place] [address]Dr. Slick Broderick Eosinophils/100 WBC (Bld) 10.4 % Critically high 0.9-7.0 [facility] Comment on above: Performed By: #### C BC ####[facility] Okmedkxdbh3595 [place] [address]Dr. Slick Broderick Erythrocyte distribution width (RBC) [Ratio] 14.0 % Normal 11.0-15.0 [facility] Comment on above: Performed By: #### C BC ####[facility] Bewjmlsbwy308165 [address] [place], [place] [address]Dr. Slick Broderick Hematocrit (Bld) [Volume fraction] 26.5 % Critically low 36.0-48.0 [facility] Comment on above: Performed By: #### C BC ####[facility] Ycqfdfzlvx0837[address] [place], [place] [address]Dr. Slick Broderick Hemoglobin (Bld) [Mass/Vol] 8.4 g/dL Critically low 12.0-16.0 [facility] Comment on above: Performed By: #### C BC ####[facility] Ndbinhrqhc2537[address] [place], [place] [address]Dr. Slick Broderick IG # 0.02 10e3/ul Normal 0.00-0.03 [facility] Comment on above: Performed By: #### C BC ####[facility] Njuaarfbkb0330 [place] [address]Dr. Slick Broderick IG % 0.4 % Normal 0.0-0.5 [facility] Comment on above: Performed By: #### C BC ####[facility] Pjzbzmspsr2633[address] [place], [place] [address]Dr. Slick Broderick LYMPH # 0.9 103/ul Critically low 1.2-3.8 [facility] Comment on above: Performed By: #### C BC ####[facility] Qahphzpnsu3157 [place] [address]Dr. Slick Broderick Lymphocytes/100 WBC (Bld) 15.6 % Critically low 20.5-60.0 [facility] Comment on above: Performed By: #### C BC ####[facility] Apwdyfpfxw5410 [place] [address]Dr. Meaganwendie Broderick MANUAL DIFF REQ NO Normal [facility] Comment on above: Performed By: #### C BC ####[facility] Inhublhtis2913[address] [place], [place] [address]Dr. Meaganwendie Broderick MCH (RBC) [Entitic mass] 29.2 pg Normal 26.7-34.0 [facility] Comment on above: Performed By: #### C BC ####[facility] Cwiqqxeufr5728[address] [place], [place] [address]Dr. Slick Broderick MCHC (RBC) [Mass/Vol] 31.7 g/dL Normal 29.9-35.2 [facility] Comment on above: Performed By: #### C BC ####[facility] Hxilbputnd2015[address] [place], [place] [address]Dr. Slick Broderick MCV (RBC) [Entitic vol] 92.0 fL Normal 81.0-99.0 [facility] Comment on above: Performed By: #### C BC ####[facility] Gfxfymfnbv9326[address] [place], [place] [address]Dr. Slick Broderick MONO # 0.6 103/ul Normal 0.3-0.8 [facility] Comment on above: Performed By: #### C BC ####[facility] Yqsoagkfbo6376[address] [place], [place] [address]Dr. Slick Broderick Monocytes/100 WBC (Bld) 10.1 % Normal 1.7-12.0 [facility] Comment on above: Performed By: #### C BC ####[facility] Dcvvgkisqp657165 [address] [place], [place] [address]Dr. Slick Broderick NEUT # 3.5 103/ul Normal 1.4-6.5 [facility] Comment on above: Performed By: #### C BC ####[facility] Flswaxhtec8246 [place] [address]Dr. Slick Broderick Neutrophils/100 WBC (Bld) 63.0 % Normal 43.0-75.0 [facility] Comment on above: Performed By: #### C BC ####[facility] Sjsflscqqr5759 [place] [address]Dr. Slick Broderick Platelet mean volume (Bld) [Entitic vol] 10.0 fL Normal 9.5-13.5 [facility] Comment on above: Performed By: #### C BC ####[facility] Warvhbmgmn1628 [place] [address]Dr. Slick Broderick PLT 198 103/ul Normal 150-450 [facility] Comment on above: Performed By: #### C BC ####[facility] Qbhnucwhcl4508[address] [place], [place] [address]Dr. Slick Broderick RBC 2.88 106/ul Critically low 4.20-5.40 [facility] Comment on above: Performed By: #### C BC ####[facility] Yqcfhteurr378[address] [place], [place] [address]Dr. Slick Broderick WBC 5.6 103/ul Normal 4.0-11.0 [facility] Comment on above: Performed By: #### C BC ####[facility] Vxdfiydkmq4879[address] [place], [place] [address]Dr. Slick Broderick CT HEAD WO CONon 04-22-2022 CT HEAD WO CON Normal [facility] POINT OF CARE GLUCOSEon 04-12 Glucose [Mass/Vol] 110 mg/dL Critically high 74-106 [facility] Comment on above: Performed By: #### P OCGLUC ####[facility] Dbuwjwufag1087[address] [place], [place] [address]Dr. Slick Broderick PROF 14(COMP METB)on 022 Albumin [Mass/Vol] 3.0 g/dL Critically low 3.4-5.0 [facility] Comment on above: Performed By: #### C MP ####[facility] Pieyjhoeeh1315[address] [place], [place] [address]Dr. Slick Broderick Albumin/Globulin [Mass ratio] 0.9 {ratio} Normal [facility] Comment on above: Performed By: #### C MP ####[facility] Hvfjxcobvn1062 [place] [address]Dr. Slick Broderick ALP [Catalytic activity/Vol] 93 U/L Normal 46-116 [facility] Comment on above: Performed By: #### C MP ####[facility] Ksulgsveuh0844 [place] [address]Dr. Slick Davie ALT [Catalytic activity/Vol] 22 U/L Normal 14-59 [facility] Comment on above: Performed By: #### C MP ####[facility] Aerlbimmkv2024[address] [place], [place] [address]Dr. Slick Broderick Anion gap [Moles/Vol] 8.9 mmol/L Normal [facility] Comment on above: Performed By: #### C MP ####[facility] Djferuuiqn3301[address] [place], [place] [address]Dr. Slick Broderick AST [Catalytic activity/Vol] 18 U/L Normal 15-37 [facility] Comment on above: Performed By: #### C MP ####[facility] Moslgnknop7164[address] [place], [place] [address]Dr. Meaganwendie Davie Bilirubin [Mass/Vol] 0.3 mg/dL Normal 0.2-1.0 [facility] Comment on above: Performed By: #### C MP ####[facility] Afdindwudq5317[address] [place], [place] [address]Dr. Slick Broderick Calcium [Mass/Vol] 9.6 mg/dL Normal 8.5-10.1 [facility] Comment on above: Performed By: #### C MP ####[facility] Ivxodzaqzp8327[address] [place], [place] [address]Dr. Slick Broderick Chloride [Moles/Vol] 104 mmol/L Normal 98-107 [facility] Comment on above: Performed By: #### C MP ####[facility] Uopvlhkolo4059 [place] [address]Dr. Slick Broderick CO2 [Moles/Vol] 30.8 mmol/L Normal 21.0-32.0 [facility] Comment on above: Performed By: #### C MP ####[facility] Fkdkzyhhnr9101 [place] [id number]. Slick Broderick Creatinine [Mass/Vol] 1.73 mg/dL Critically high 0.55-1.02 [facility] Comment on above: Performed By: #### C MP ####[facility] Qhuiggycxt5449 [place] [id number]. Slick Broderick EGFR-AF KENYAN 35 mL/min/1.73m2 Critically low >=60 [facility] Comment on above: Performed By: #### C MP ####[facility] Pssewzrjpz7792 [place] [phone]. Slick Broderick EGFR-NON AF KENYAN 29 mL/min/1.73m2 Critically low >=60 [facility] Comment on above: Performed By: #### C MP ####[facility] Rxbzibmamu7237 [place] [phone]. Slick Davie Globulin (S) [Mass/Vol] 3.4 g/dL Normal [facility] Comment on above: Performed By: #### C MP ####[facility] Udzixgeepm7764 [place] [phone]. Slick Broderick Glucose [Mass/Vol] 94 mg/dL Normal 74-106 [facility] Comment on above: Performed By: #### C MP ####[facility] Jxvigypegx9343 [place] [phone]. Slick Broderick Potassium [Moles/Vol] 4.7 mmol/L Normal 3.5-5.1 [facility] Comment on above: Performed By: #### C MP ####[facility] Cdpbtbhqmc8910 [place] [phone]. Slick Broderick Protein [Mass/Vol] 6.4 g/dL Normal 6.4-8.2 [facility] Comment on above: Performed By: #### C MP ####[facility] [address]wv[address]kmz[address] [place] [id number]. Slick Broderick Sodium [Moles/Vol] 139 mmol/L Normal 136-145 [facility] Comment on above: Performed By: #### C MP ####[facility] Cvfhlkajgi[address] [place] [address]Dr. Slick Broderick Urea nitrogen [Mass/Vol] 46.0 mg/dL Critically high 7.0-18.0 [facility] Comment on above: Performed By: #### C MP ####[facility] Eodxwcgttc[address] [place] [address]Dr. Slick Broderick Urea nitrogen/Creatinine [Mass ratio] 26.6 mg/mg Normal [facility] Comment on above: Performed By: #### C MP ####[facility] Raibpzwdhe[address] [place] [address]Dr. Slick Broderick PROF CHEM 8 (BAS METB)on Anion gap [Moles/Vol] 8.6 mmol/L Normal [facility] Comment on above: Performed By: #### B MP ####[facility] Azerwpdjrp67[address] [place], [place] [address]Dr. Slick Broderick Calcium [Mass/Vol] 9.9 mg/dL Normal 8.5-10.1 [facility] Comment on above: Performed By: #### B MP ####[facility] Yewskczimi[address] [place], [place] [address]Dr. Slick Broderick Chloride [Moles/Vol] 103 mmol/L Normal 98-107 [facility] Comment on above: Performed By: #### B MP ####[facility] Fbzvabeirv[address] [place], [place] [address]Dr. Slick Broderick CO2 [Moles/Vol] 29.5 mmol/L Normal 21.0-32.0 The [facility] Comment on above: Performed By: #### B MP ####[facility] Fgxunspbdn7[address] [place], [place] [address]Dr. Slick Broderick Creatinine [Mass/Vol] 1.62 mg/dL Critically high 0.55-1.02 [facility] Comment on above: Performed By: #### B MP ####[facility] Ntlvhyhgly38[address] [place], [place] [address]Dr. Slick Broderick EGFR-AF KENYAN 38 mL/min/1.73m2 Critically low >=60 [facility] Comment on above: Performed By: #### B MP ####[facility] Rkbbakjryg[address] [place] [address]Dr. Slick Broderick EGFR-NON AF KENYAN 31 mL/min/1.73m2 Critically low >=60 [facility] Comment on above: Performed By: #### B MP ####[facility] Ritgqoajdd20[address] [place] [address]Dr. Slick Broderick Glucose [Mass/Vol] 125 mg/dL Critically high 74-106 [facility] Comment on above: Performed By: #### B MP ####[facility] Eezptgrzne57[address] [place], [place] [address]Dr. Slick Broderick Potassium [Moles/Vol] 4.1 mmol/L Normal 3.5-5.1 [facility] Comment on above: Performed By: #### B MP ####[facility] Aqwahbfouz9[address] [place], [place] [address]Dr. Slick Broderick Sodium [Moles/Vol] 137 mmol/L Normal 136-145 [facility] Comment on above: Performed By: #### B MP ####[facility] Zfszpbyorn35[address] [place], [place] [address]Dr. Slick Broderick Urea nitrogen [Mass/Vol] 41.0 mg/dL Critically high 7.0-18.0 [facility] Comment on above: Performed By: #### B MP ####[facility] Ggsqqtlxiq464[address] [place], [place] [address]Dr. Slick Broderick Urea nitrogen/Creatinine [Mass ratio] 25.3 mg/mg Normal [facility] Comment on above: Performed By: #### B MP ####[facility] Eoetuysqrm249[address] [place], [place] [address]Dr. Slick Broderick PROTIMEon 04-22-2022 INR Coag (PPP) [Relative time] 1.08 {INR} Normal [facility] Comment on above: Performed By: #### P T, PTT ####[facility] Fyzzejtpzu37[address] [place], [place] [address]Dr. Slick Broderick INR GUIDELINES SEE BELOW Normal [facility] Comment on above: Result Comment: EDMUND RED INR: 2.0 - 3.0 CONDITIONS NOT LISTED BELOW 2.5 - 3.5 FOR PROSTHETIC HEART VALVE REPLACEMENT 2.5 - 3.5 RECURRENT THROMBOSIS Performed By: #### P T, PTT ####[facility] Gkvvfhtqen7667[address] [place], [place] [address]Dr. Slick Broderick PT Coag (PPP) [Time] 11.6 s Normal 9.0-11.6 [facility] Comment on above: Performed By: #### P T, PTT ####[facility] Ulqhaaumfm8[address] [place], [place] [address]Dr. Slick Broderick PTTon 04-22-2022 aPTT Coag (Bld) [Time] 30.7 s Normal 22.3-36.2 [facility] Comment on above: Performed By: #### P T, PTT ####[facility] Xkevqvkcts028[address] [place], [place] [address]Dr. Slick Broderick XR TIB_FIB RT 2Von 2 XR TIB_FIB RT 2V Normal The [facility] CBC AUTO DIFFon 04-21-2022 BASO # 0.0 103/ul Normal 0.0-0.1 [facility] Comment on above: Performed By: #### C BC ####[facility] Ltaritzrmj4960[address] [place], [place] [address]Dr. Slick Broderick Basophils/100 WBC (Bld) 0.3 % Normal 0.2-2.0 [facility] Comment on above: Performed By: #### C BC ####[facility] Xbpkpjchje6765[address] [place], [place] [address]Dr. Slick Broderick EO # 0.6 103/ul Normal 0.0-0.7 [facility] Comment on above: Performed By: #### C BC ####[facility] Kynmleyicq1576[address] [place], [place] [address]Dr. Slick Broderick Eosinophils/100 WBC (Bld) 10.2 % Critically high 0.9-7.0 [facility] Comment on above: Performed By: #### C BC ####[facility] Xjzefsnqzq8[address] [place] [address]Dr. Slick Broderick Erythrocyte distribution width (RBC) [Ratio] 14.2 % Normal 11.0-15.0 [facility] Comment on above: Performed By: #### C BC ####[facility] Eqfbwpgary5637 [place] [address]Dr. Slick Broderick Hematocrit (Bld) [Volume fraction] 25.5 % Critically low 36.0-48.0 [facility] Comment on above: Performed By: #### C BC ####[facility] Powqixfxkt43[address] [place] [address]Dr. Slick Broderick Hemoglobin (Bld) [Mass/Vol] 8.1 g/dL Critically low 12.0-16.0 [facility] Comment on above: Performed By: #### C BC ####[facility] Hcsbfkdksz01[address] [place] [address]Dr. Slick Broderick IG # 0.02 10e3/ul Normal 0.00-0.03 [facility] Comment on above: Performed By: #### C BC ####[facility] Bsvxvbzdgm27[address] [place] [address]Dr. Slick Broderick IG % 0.3 % Normal 0.0-0.5 [facility] Comment on above: Performed By: #### C BC ####[facility] Rkblyiepmv2347 [place] [address]Dr. Slick Broderick LYMPH # 0.8 103/ul Critically low 1.2-3.8 [facility] Comment on above: Performed By: #### C BC ####[facility] Bkaxizlaqf26[address] [place] [address]Dr. Slick Broderick Lymphocytes/100 WBC (Bld) 13.2 % Critically low 20.5-60.0 [facility] Comment on above: Performed By: #### C BC ####[facility] Zsmwthfvgr7[address] [place] [address]Dr. Slick Broderick MANUAL DIFF REQ NO Normal [facility] Comment on above: Performed By: #### C BC ####[facility] Nvanfouive15[address] [place] [phone]. Slick Davie MCH (RBC) [Entitic mass] 29.5 pg Normal 26.7-34.0 [facility] Comment on above: Performed By: #### C BC ####[facility] Psjyosiuvw14[address] [place] [phone]. Slick Broderick MCHC (RBC) [Mass/Vol] 31.8 g/dL Normal 29.9-35.2 [facility] Comment on above: Performed By: #### C BC ####[facility] Fhwxaqsmwe024[address] [place] [phone]. Meaganwendie Broderick MCV (RBC) [Entitic vol] 92.7 fL Normal 81.0-99.0 [facility] Comment on above: Performed By: #### C BC ####[facility] Sodtdbgbft11[address] [place], [place] [address]Dr. Slick Broderick MONO # 0.6 103/ul Normal 0.3-0.8 [facility] Comment on above: Performed By: #### C BC ####[facility] Iqqzxstsik57[address] [place], [place] [address]Dr. Slick Broderick Monocytes/100 WBC (Bld) 9.2 % Normal 1.7-12.0 [facility] Comment on above: Performed By: #### C BC ####[facility] Poeswzljja6[address] [place], [place] [address]Dr. Slick Broderick NEUT # 4.1 103/ul Normal 1.4-6.5 [facility] Comment on above: Performed By: #### C BC ####[facility] Nujpbohoik[address] [place], [place] [id number]. Slick Broderick Neutrophils/100 WBC (Bld) 66.8 % Normal 43.0-75.0 [facility] Comment on above: Performed By: #### C BC ####[facility] Nhgymhtyvv[address] [place], [place] [address]Dr. Slick Broderick Platelet mean volume (Bld) [Entitic vol] 9.5 fL Normal 9.5-13.5 [facility] Comment on above: Performed By: #### C BC ####[facility] Qkxxqzeeuw6993 [place], [place] [address]Bi. Slick Broderick PLT 189 103/ul Normal 150-450 [facility] Comment on above: Performed By: #### C BC ####[facility] Babuwuqhaw9192 [place], [place] [address]Sc. Slick Broderick RBC 2.75 106/ul Critically low 4.20-5.40 [facility] Comment on above: Performed By: #### C BC ####[facility] Swpebyajpu9051 [place] [phone]. Slick Broderick WBC 6.2 103/ul Normal 4.0-11.0 [facility] Comment on above: Performed By: #### C BC ####[facility] Njmuvafegi8988 [place] [phone]. Slick Broderick BASO # 0.1 103/ul Normal 0.0-0.1 [facility] Comment on above: Performed By: #### C BC ####[facility] Eoebioecmm9127 [place] [phone]. Slick Broderick Basophils/100 WBC (Bld) 0.8 % Normal 0.2-2.0 [facility] Comment on above: Performed By: #### C BC ####[facility] Hgpurqmptl5247 [place] [phone]. Slick Broderick EO # 0.8 103/ul Critically high 0.0-0.7 [facility] Comment on above: Performed By: #### C BC ####[facility] Djcbksrvmo8196 [place] [phone]. Slick Broderick Eosinophils/100 WBC (Bld) 11.7 % Critically high 0.9-7.0 [facility] Comment on above: Performed By: #### C BC ####[facility] Nmevltkytu7869 [place] [phone]. Slick Broderick Erythrocyte distribution width (RBC) [Ratio] 14.1 % Normal 11.0-15.0 [facility] Comment on above: Performed By: #### C BC ####[facility] Dzdrhrkudn8[address] [place] [address]Dr. Meaganwendie Broderick Hematocrit (Bld) [Volume fraction] 27.3 % Critically low 36.0-48.0 [facility] Comment on above: Performed By: #### C BC ####[facility] Ofxyvpbfvf9847 [place] [address]Dr. Slick Broderick Hemoglobin (Bld) [Mass/Vol] 8.4 g/dL Critically low 12.0-16.0 [facility] Comment on above: Performed By: #### C BC ####[facility] Hesfhdjxuw4114[address] [place], [place] [address]Dr. Slick Broderick IG # 0.02 10e3/ul Normal 0.00-0.03 [facility] Comment on above: Performed By: #### C BC ####[facility] Momfltitem9415[address] [place], [place] [address]Dr. Slick Broderick IG % 0.3 % Normal 0.0-0.5 [facility] Comment on above: Performed By: #### C BC ####[facility] Ivmnlebuua5585[address] [place], [place] [address]Dr. Slick Broderick LYMPH # 1.0 103/ul Critically low 1.2-3.8 [facility] Comment on above: Performed By: #### C BC ####[facility] Qsnrlqylqj2468[address] [place], [place] [address]Dr. Slick Broderick Lymphocytes/100 WBC (Bld) 14.5 % Critically low 20.5-60.0 [facility] Comment on above: Performed By: #### C BC ####[facility] Ffhxcfziaq0587[address] [place], [place] [address]Dr. Slick Broderick MANUAL DIFF REQ NO Normal [facility] Comment on above: Performed By: #### C BC ####[facility] Dqflzppvfz994[address] [place], [place] [address]Dr. Slick Broderick MCH (RBC) [Entitic mass] 29.2 pg Normal 26.7-34.0 [facility] Comment on above: Performed By: #### C BC ####[facility] Ggshpwgote6616 [place] [phone]. Slick Davie MCHC (RBC) [Mass/Vol] 30.8 g/dL Normal 29.9-35.2 [facility] Comment on above: Performed By: #### C BC ####[facility] Fkwelauara5286 [place] [address]Dr. Slick Broderick MCV (RBC) [Entitic vol] 94.8 fL Normal 81.0-99.0 [facility] Comment on above: Performed By: #### C BC ####[facility] Odukmunpqs2485[address] [place], [place] [address]Dr. Slick Broderick MONO # 0.6 103/ul Normal 0.3-0.8 [facility] Comment on above: Performed By: #### C BC ####[facility] Ddtbtwqqiy6620[address] [place], [place] [address]Dr. Slick Broderick Monocytes/100 WBC (Bld) 9.7 % Normal 1.7-12.0 [facility] Comment on above: Performed By: #### C BC ####[facility] Ugbvtdnlna0109[address] [place], [place] [address]Dr. Slick Broderick NEUT # 4.2 103/ul Normal 1.4-6.5 [facility] Comment on above: Performed By: #### C BC ####[facility] Rhqbmftrvk6918[address] [place], [place] [address]Dr. Slick Broderick Neutrophils/100 WBC (Bld) 63.0 % Normal 43.0-75.0 [facility] Comment on above: Performed By: #### C BC ####[facility] Kwtoguqjmq213[address] [place], [place] [address]Dr. Slick Broderick Platelet mean volume (Bld) [Entitic vol] 10.0 fL Normal 9.5-13.5 [facility] Comment on above: Performed By: #### C BC ####[facility] Bqpjwkpnbw4395[address] [place], [place] [address]Dr. Slick Broderick PLT 210 103/ul Normal 150-450 [facility] Comment on above: Performed By: #### C BC ####[facility] Ktkemjjpet7983 [place] [phone]. Slick Broderick RBC 2.88 106/ul Critically low 4.20-5.40 [facility] Comment on above: Performed By: #### C BC ####[facility] Eetyylyruw5541 [place] [phone]. Slick Broderick WBC 6.6 103/ul Normal 4.0-11.0 [facility] Comment on above: Performed By: #### C BC ####[facility] Fwjlaetcqu6736 [place] [phone]. Slick Broderick CRPon 04-21-2022 CRP 0.4 mg/dL Normal <=1.0 [facility] Comment on above: Performed By: #### H STROPN, CRP, CMP ####[facility] Lqbsqsrxqh8[address] [place] [phone]. Slick Broderick CT HEAD WO CONon 04-21-2022 CT HEAD WO CON Normal [facility] CULTURE BLOODon 04-21-2022 Microscopic examination of blood, culture Culture Observations: NO GROWTH AT 5 DAYS. Normal [facility] Comment on above: Performed By: #### B LDCX2 ####[facility] Etrtcbrmja[address] [place], [place] [id number]. Slick Broderick Microscopic examination of blood, culture Culture Observations: NO GROWTH AT 5 DAYS. Normal [facility] Comment on above: Performed By: #### B LDCX1 ####[facility] Unvdvmhsgg5516 [place] [phone]. Slick Broderick CULTURE URINEon 04-21-2022 CULTURE URINE Culture Observations: MODERATE GROWTH OF MIXED GENITAL OMAR. NO POTENTIAL PATHOGENS SEEN. Normal [facility] Comment on above: Performed By: #### U RCX ####[facility] Ksbkgbbmsi2226[address] [place], [place] [address]Dr. Slick Broderick Covid-19 PCR (CVDTB)on 04-12 SARS-CoV-2 (COVID-19) RNA DONNIE+probe Ql (Unsp spec) Not detected Normal NOT DETECTED [facility] Comment on above: Result Comment: When [...] for this test is supported by the [place] of [employer] and Human Service's declaration that [...] longer be used). Performed By: #### C [facility]DNEW [facility] ####[facility] Patdsszirc9629[address] [place], [place] [address]Dr. Slick Broderick ER URINE PROFILEon 2 Bilirubin Ql (U) Negative Normal NEGATIVE [facility] Comment on above: Performed By: #### Dennise PLEITEZ ICRO ####[facility] Oazjjugibd912[address] [place], [place] [address]Dr. Slick Broderick Clarity (U) CLEAR Normal CLEAR [facility] Comment on above: Performed By: #### Dennise PLEITEZ UMICRO ####[facility] Eexdawoevu2110[address] [place], [place] [address]Dr. Slick Broderick Color (U) LT. YELLOW Normal YELLOW [facility] Comment on above: Performed By: #### Dennise PLEITEZ UMICRO ####[facility] Zzmqydytud9725[address] [place], [place] [address]Dr. Slick Broderick ERUAHD A micrscopic examination will be performed if indicated. Normal [facility] Comment on above: Performed By: #### Dennise PLEITEZ UMICRO ####[facility] Sgjynoytyb7524[address] [place], [place] [address]Dr. Slick Broderick Glucose Ql (U) Negative Normal NEGATIVE [facility] Comment on above: Performed By: #### AMBERLY PEDRORO ####[facility] Sznyhfhhgp2713 [place] [address]Dr. Slick Broderick Hemoglobin Ql (U) Negative Normal NEGATIVE [facility] Comment on above: Performed By: #### AMBERLY PEDRORO ####[facility] Idvcxohmdt5807 [place] [address]Dr. Slick Broderick Ketones Ql (U) Negative Normal NEGATIVE [facility] Comment on above: Performed By: #### AMBERLY PEDRORO ####[facility] Efvjuvxewz1468[address] [place], [place] [address]Dr. Slick Broderick LEUKOCYTES TRACE Abnormal NEGATIVE [facility] Comment on above: Performed By: #### AMBERLY PEDRORO ####[facility] Twwoygpxpp3356[address] [place], [place] [address]Dr. Slick Broderick Nitrite Ql (U) Negative Normal NEGATIVE [facility] Comment on above: Performed By: #### JANIS PEDRO ####[facility] Gsjfsdzmyd4785[address] [place], [place] [address]Dr. Slick Broderick pH (U) 5.5 [pH] Normal 5-9 [facility] Comment on above: Performed By: #### AMBERLY PEDRORO ####[facility] Kpfsvrmrvg207[address] [place], [place] [address]Dr. Slick Broderick SPEC GRAVITY 1.010 Normal 1.005-<=1.0 25 [facility] Comment on above: Performed By: #### AMBERLY PEDRORO ####[facility] Szjiczltyw[address] [place], [place] [address]Dr. Slick Broderick UA PROTEIN Negative Normal NEGATIVE/ TRACE [facility] Comment on above: Performed By: #### ABMERLY PEDRORO ####[facility] Gnprgjudgv966[address] [place], [place] [address]Dr. Slick Broderick UR MICRO IND INDICATED Normal [facility] Comment on above: Performed By: #### AMBERLY PEDRORO ####[facility] Vlqdclmddj[address] [place], [place] [address]Dr. Slick Broderick Urobilinogen Qn (U) 0.2 {Hiren'U}/dL Normal 0.2 - 1. 0 [facility] Comment on above: Performed By: #### E JANIS PLEITEZ ####[facility] Jrlazlvamz54[address] [place] [address]Dr. Slick Davie LACTATE/LACTIC ACIDon 2021 Lactate [Moles/Vol] 1.0 mmol/L Normal 0.4-1.9 [facility] Comment on above: Performed By: #### L ACT ####[facility] Pekrdokhlh39[address] [place] [address]Dr. Slick Broderick POINT OF CARE GLUCOSEon 04-12 Glucose [Mass/Vol] 109 mg/dL Critically high 74-106 [facility] Comment on above: Performed By: #### P OCGLUC ####[facility] Tjuytgxjnm1382 [place] [address]Dr. Slick Broderick Glucose [Mass/Vol] 93 mg/dL Normal 74-106 [facility] Comment on above: Performed By: #### P OCGLUC ####[facility] Uzjdrhwczz0605 [place] [address]Dr. Slick Broderick Glucose [Mass/Vol] 140 mg/dL Critically high 74-106 [facility] Comment on above: Performed By: #### P OCGLUC ####[facility] Iglddotwon5634 [place] [address]Dr. Meaganwendie Broderick Glucose [Mass/Vol] 95 mg/dL Normal 74-106 [facility] Comment on above: Performed By: #### P OCGLUC ####[facility] Tezcccwbek8344 [place] [address]Dr. Slick Broderick PROF 14(COMP METB)on 022 Albumin [Mass/Vol] 2.9 g/dL Critically low 3.4-5.0 [facility] Comment on above: Performed By: #### C MP ####[facility] Mpugbneymy7422 [place] [address]Dr. Slick Broderick Albumin/Globulin [Mass ratio] 0.9 {ratio} Normal [facility] Comment on above: Performed By: #### C MP ####[facility] Wjijgrommw8313 [place] [address]Dr. Slick Broderick ALP [Catalytic activity/Vol] 87 U/L Normal 46-116 [facility] Comment on above: Performed By: #### C MP ####[facility] Nlereojosz3232 [place] [address]Dr. Slick Broderick ALT [Catalytic activity/Vol] 21 U/L Normal 14-59 [facility] Comment on above: Performed By: #### C MP ####[facility] Qiumdigoqj9003 [place] [address]Dr. Slick Broderick Anion gap [Moles/Vol] 7.7 mmol/L Normal [facility] Comment on above: Performed By: #### C MP ####[facility] Geaqnnebrx[address] [place], [place] [address]Dr. Slick Davie AST [Catalytic activity/Vol] 11 U/L Critically low 15-37 [facility] Comment on above: Performed By: #### C MP ####[facility] Mqwuyohlix23[address] [place], [place] [address]Dr. Slick Broderick Bilirubin [Mass/Vol] 0.2 mg/dL Normal 0.2-1.0 [facility] Comment on above: Performed By: #### C MP ####[facility] Ewjpqokxef9[address] [place], [place] [address]Dr. Slick Davie Calcium [Mass/Vol] 9.4 mg/dL Normal 8.5-10.1 [facility] Comment on above: Performed By: #### C MP ####[facility] Piyzxqvxrs063[address] [place], [place] [address]Dr. Slick Davie Chloride [Moles/Vol] 107 mmol/L Normal 98-107 [facility] Comment on above: Performed By: #### C MP ####[facility] Umbzbqwmon5425[address] [place], [place] [address]Dr. Slick Broderick CO2 [Moles/Vol] 31.2 mmol/L Normal 21.0-32.0 [facility] Comment on above: Performed By: #### C MP ####[facility] Vklfjpcuqt6062 [place] [address]Dr. Slick Broderick Creatinine [Mass/Vol] 2.06 mg/dL Critically high 0.55-1.02 [facility] Comment on above: Performed By: #### C MP ####[facility] Gmwgxloyez2224 [place] [address]Dr. Slick Broderick EGFR-AF KENYAN 29 mL/min/1.73m2 Critically low >=60 [facility] Comment on above: Performed By: #### C MP ####[facility] Smlyhpsxop6553 [place] [address]Dr. Slick Davie EGFR-NON AF KENYAN 24 mL/min/1.73m2 Critically low >=60 [facility] Comment on above: Performed By: #### C MP ####[facility] Gmmvjeohca39[address] [place], [place] [address]Dr. Slick Davie Globulin (S) [Mass/Vol] 3.4 g/dL Normal [facility] Comment on above: Performed By: #### C MP ####[facility] Gpekwfzgar02[address] [place] [address]Dr. Slick Davie Glucose [Mass/Vol] 93 mg/dL Normal 74-106 [facility] Comment on above: Performed By: #### C MP ####[facility] Znclktzfiq6247 [place] [address]Dr. Meaganwendie Broderick Potassium [Moles/Vol] 4.9 mmol/L Normal 3.5-5.1 [facility] Comment on above: Performed By: #### C MP ####[facility] Seyoblvrxe19[address] [place] [address]Dr. Meaganwendie Broderick Protein [Mass/Vol] 6.3 g/dL Critically low 6.4-8.2 [facility] Comment on above: Performed By: #### C MP ####[facility] Iylyavfzaq8648 [place] [address]Dr. Slick Broderick Sodium [Moles/Vol] 141 mmol/L Normal 136-145 [facility] Comment on above: Performed By: #### C MP ####[facility] Ambfjbrmgt[address] [place] [address]Dr. Slick Davie Urea nitrogen [Mass/Vol] 63.0 mg/dL Critically high 7.0-18.0 [facility] Comment on above: Performed By: #### C MP ####[facility] Kwqwxmdehj[address] [place] [address]Dr. Meaganwendie Davie Urea nitrogen/Creatinine [Mass ratio] 30.6 mg/mg Normal [facility] Comment on above: Performed By: #### C MP ####[facility] Jvoclsrrfa28[address] [place] [address]Dr. Slick Broderick Albumin [Mass/Vol] 3.1 g/dL Critically low 3.4-5.0 [facility] Comment on above: Performed By: #### H STROPN, CRP, CMP ####[facility] Poebykvefi[address] [place], [place] [address]Dr. Slick Broderick Albumin/Globulin [Mass ratio] 0.9 {ratio} Normal [facility] Comment on above: Performed By: #### H STROPN, CRP, CMP ####[facility] Kxitjgijhr[address] [place] [address]Dr. Slick Davie ALP [Catalytic activity/Vol] 98 U/L Normal 46-116 [facility] Comment on above: Performed By: #### H STROPN, CRP, CMP ####[facility] Bhelepqfpf3050 [place] [address]Dr. Slick Broderick ALT [Catalytic activity/Vol] 17 U/L Normal 14-59 [facility] Comment on above: Performed By: #### H STROPN, CRP, CMP ####[facility] Zpuccqsqvh7[address] [place] [address]Dr. Slick Broderick Anion gap [Moles/Vol] 4.3 mmol/L Normal [facility] Comment on above: Performed By: #### H STROPN, CRP, CMP ####[facility] Odhgjpztno7[address] [place] [address]Dr. Slick Broderick AST [Catalytic activity/Vol] 11 U/L Critically low 15-37 [facility] Comment on above: Performed By: #### H STROPN, CRP, CMP ####[facility] Cghulbycgl3[address] [place] [address]Dr. Slick Broderick Bilirubin [Mass/Vol] 0.2 mg/dL Normal 0.2-1.0 [facility] Comment on above: Performed By: #### H STROPN, CRP, CMP ####[facility] Mipdutdtkk89[address] [place] [address]Dr. Slick Broderick Calcium [Mass/Vol] 9.6 mg/dL Normal 8.5-10.1 [facility] Comment on above: Performed By: #### H STROPN, CRP, CMP ####[facility] Oqhypclvag[address] [place] [address]Dr. Slick Broderick Chloride [Moles/Vol] 104 mmol/L Normal 98-107 [facility] Comment on above: Performed By: #### H STROPN, CRP, CMP ####[facility] Budyecepbo2126 [place] [address]Dr. Slick Broderick CO2 [Moles/Vol] 32.3 mmol/L Critically high 21.0-32.0 [facility] Comment on above: Performed By: #### H STROPN, CRP, CMP ####[facility] Lkzotqylng5[address] [place] [address]Dr. Slick Broderick Creatinine [Mass/Vol] 2.49 mg/dL Critically high 0.55-1.02 [facility] Comment on above: Performed By: #### H STROPN, CRP, CMP ####[facility] Nxcbrssbbv4646 [place] [address]Dr. Meaganlan Broderick EGFR-AF KENYAN 23 mL/min/1.73m2 Critically low >=60 [facility] Comment on above: Performed By: #### H STROPN, CRP, CMP ####[facility] Yujsgnrfgq5348 [place] [address]Dr. Slick Broderick EGFR-NON AF KENYAN 19 mL/min/1.73m2 Critically low >=60 [facility] Comment on above: Performed By: #### H STROPN, CRP, CMP ####[facility] Qkmsfhacuc0367 [place] [address]Dr. Slick Broderick Globulin (S) [Mass/Vol] 3.5 g/dL Normal [facility] Comment on above: Performed By: #### H STROPN, CRP, CMP ####[facility] Udlugblnan5344 [place] [address]Dr. Slick Broderick Glucose [Mass/Vol] 112 mg/dL Critically high 74-106 [facility] Comment on above: Performed By: #### H STROPN, CRP, CMP ####[facility] Eqxgbqyhww8242 [place] [address]Dr. Slick Broderick Potassium [Moles/Vol] 4.6 mmol/L Normal 3.5-5.1 [facility] Comment on above: Performed By: #### H STROPN, CRP, CMP ####[facility] Saewkzrdrj9685 [place] [address]Dr. Slick Broderick Protein [Mass/Vol] 6.6 g/dL Normal 6.4-8.2 [facility] Comment on above: Performed By: #### H STROPN, CRP, CMP ####[facility] Wmnuxbcwwc[address] [place], [place] [address]Dr. Slick Broderick Sodium [Moles/Vol] 136 mmol/L Normal 136-145 [facility] Comment on above: Performed By: #### H STROPN, CRP, CMP ####[facility] Miwpjbkalw7505 [place] [address]Dr. Slick Broderick Urea nitrogen [Mass/Vol] 74.0 mg/dL Critically high 7.0-18.0 [facility] Comment on above: Performed By: #### H STROPN, CRP, CMP ####[facility] Hzkzdtvojq9187[address] [place], [place] [address]Dr. Slick Broderick Urea nitrogen/Creatinine [Mass ratio] 29.7 mg/mg Normal [facility] Comment on above: Performed By: #### H STROPN, CRP, CMP ####[facility] Kutlgbbwhv8729 [place] [address]Dr. Yilan Broderick SED RATE WESTERGRENon 2021 SED RATE 32 mm/hr Critically high <=30 [facility] Comment on above: Performed By: #### S EDR ####[facility] Xotcyjoimo0132 [place] [address]Dr. Slick Broderick TROPONIN, HIGH SENSITIVITYon 04-21-2022 HSTROP 8.6 pg/mL Normal 4.0-51.3 [facility] Comment on above: Result Comment: CUT- OFF POINTS HAVE BEEN ESTABLISHED BASED ON THE FOURTH UNIVERSAL DEFINITIONS OF MYOCARDIALINFARCTION. THE UPPER REFERENCE LIMIT (URL) OF TROPONIN, DEFINED THE 99TH PERCENTILE OFcTnI DISTRIBUTION IN A REFERENCE POPULATION, HAS BEEN CONFIRMED THE DECISION THRESHOLDFOR DC DIAGNOSIS. Performed By: #### H STROPN, CRP, CMP ####[facility] Qpiiqelmpl[address] [place], [place] [address]Dr. Slick Broderick URINE MICROSCOPIC ONLYon BACTERIA TRACE Abnormal NONE SEEN The [facility] Comment on above: Performed By: #### Dennise PLEITEZ UMICRO ####[facility] Wjtgkplqad1929 [place] [address]Dr. Slick Broderick Bacteria identified Cx Nom (U) INDICATED Normal [facility] Comment on above: Performed By: #### Dennise PLEITEZ UMICRO ####[facility] Hjllcfhgdw2839 [place] [address]Dr. Slick Broderick CAST NONE SEEN Normal NONE SEEN [facility] Comment on above: Performed By: #### Dennise PLEITEZ UMICRO ####[facility] Bwtjscamxz3242 [place] [address]Dr. Slick Broderick Crystals LM Nom (Urine sed) NONE SEEN Normal NONE SEEN [facility] Comment on above: Performed By: #### Dennise PLEITEZ UMICRO ####[facility] Ywcmauxfyk3599 [place] [address]Dr. Slick Broderick Epithelial cells LM Ql (Urine sed) FEW Abnormal NONE SEEN /RARE [facility] Comment on above: Performed By: #### Dennise PLEITEZ UMICRO ####[facility] Vnafpzmocm7430 [place] [address]Dr. Slick Broderick MUCOUS NONE SEEN Normal NONE SEEN [facility] Comment on above: Performed By: #### JANIS PEDRO ####[facility] Xpxskgzlou9188 [place] [address]Dr. Slick Broderick RBC 0-2 Normal 0-2 [facility] Comment on above: Performed By: #### JANIS PEDRO ####[facility] Zeiijhkivz4850 [place] [address]Dr. Slick Broderick WBC 5-10 Abnormal NONE SEEN [facility] Comment on above: Performed By: #### JANIS PEDRO ####[facility] Mpwgbctvgw2288 [place] [address]Dr. Slick Broderick XR CHEST 1 Von 04-21-2022 XR CHEST 1 V Normal [facility] CBC AUTO DIFFon 03-29-2022 BASO # 0.1 103/ul Normal 0.0-0.1 [facility] Comment on above: Performed By: #### C BC ####[facility] Boioefghmn1585 [place] [address]Dr. Slick Broderick Basophils/100 WBC (Bld) 0.7 % Normal 0.2-2.0 [facility] Comment on above: Performed By: #### C BC ####[facility] Wzvlrqqvit9608 [place] [address]Dr. Slick Broderick EO # 0.4 103/ul Normal 0.0-0.7 [facility] Comment on above: Performed By: #### C BC ####[facility] Pvuvjckkgc8014 [place] [address]Dr. Slick Broderick Eosinophils/100 WBC (Bld) 4.8 % Normal 0.9-7.0 [facility] Comment on above: Performed By: #### C BC ####[facility] Fnerojyxbh3231 [place] [address]Dr. Slick Broderick Erythrocyte distribution width (RBC) [Ratio] 13.9 % Normal 11.0-15.0 [facility] Comment on above: Performed By: #### C BC ####[facility] Zdtvebcshc4142 [place] [address]Dr. Slick Broderick Hematocrit (Bld) [Volume fraction] 28.0 % Critically low 36.0-48.0 [facility] Comment on above: Performed By: #### C BC ####[facility] Foxnaudnrl1258 [place] [address]Dr. Slick Broderick Hemoglobin (Bld) [Mass/Vol] 8.8 g/dL Critically low 12.0-16.0 [facility] Comment on above: Performed By: #### C BC ####[facility] Xktcoyidae5160 [place] [address]Dr. Slick Broderick IG # 0.05 10e3/ul Critically high 0.00-0.03 [facility] Comment on above: Performed By: #### C BC ####[facility] Kaykfpctnv8100 [place] [address]Dr. Slick Broderick IG % 0.7 % Critically high 0.0-0.5 [facility] Comment on above: Performed By: #### C BC ####[facility] Iykulibeta5666 [place] [address]Dr. Slick Broderick LYMPH # 1.0 103/ul Critically low 1.2-3.8 [facility] Comment on above: Performed By: #### C BC ####[facility] Poejcanhoi4946 [place] [address]Dr. Slick Broderick Lymphocytes/100 WBC (Bld) 13.0 % Critically low 20.5-60.0 [facility] Comment on above: Performed By: #### C BC ####[facility] Ktdvmmmcmr6081 [place] [address]Dr. Slick Broderick MANUAL DIFF REQ NO Normal [facility] Comment on above: Performed By: #### C BC ####[facility] Xsmnigpmxi45[address] [place], [place] [address]Dr. Slick Broderick MCH (RBC) [Entitic mass] 28.9 pg Normal 26.7-34.0 [facility] Comment on above: Performed By: #### C BC ####[facility] Msepqzvihm1761 [place] [phone]. Slick Broderick MCHC (RBC) [Mass/Vol] 31.4 g/dL Normal 29.9-35.2 [facility] Comment on above: Performed By: #### C BC ####[facility] Bjvwxexuxw4947 [place] [phone]. Slick Broderick MCV (RBC) [Entitic vol] 92.1 fL Normal 81.0-99.0 [facility] Comment on above: Performed By: #### C BC ####[facility] N[address]yrcxka[address] [place], [place] [id number]. Slick Broderick MONO # 0.8 103/ul Normal 0.3-0.8 [facility] Comment on above: Performed By: #### C BC ####[facility] Yfjdthdcak8[address] [place], [place] [address]Dr. Slick Broderick Monocytes/100 WBC (Bld) 10.7 % Normal 1.7-12.0 [facility] Comment on above: Performed By: #### C BC ####[facility] Pdnfxmnpxa6725[address] [place], [place] [address]Dr. Meaganwendie Broderick NEUT # 5.4 103/ul Normal 1.4-6.5 [facility] Comment on above: Performed By: #### C BC ####[facility] Xgxebxfxln4196[address] [place], [place] [address]Dr. Slick Broderick Neutrophils/100 WBC (Bld) 70.1 % Normal 43.0-75.0 [facility] Comment on above: Performed By: #### C BC ####[facility] Hojukxycty9[address] [place], [place] [address]Dr. Slick Broderick Platelet mean volume (Bld) [Entitic vol] 8.9 fL Critically low 9.5-13.5 [facility] Comment on above: Performed By: #### C BC ####[facility] Pxfehrqnjk89[address] [place], [place] [id number]. Slick Broderick PLT 221 103/ul Normal 150-450 [facility] Comment on above: Performed By: #### C BC ####[facility] Lntcgpsbln8803 [place] [phone]. Slick Broderick RBC 3.04 106/ul Critically low 4.20-5.40 [facility] Comment on above: Performed By: #### C BC ####[facility] Wdizjguyio7104 [place] [phone]. Slick Broderick WBC 7.7 103/ul Normal 4.0-11.0 [facility] Comment on above: Performed By: #### C BC ####[facility] Bsnfuddkxi8939 [place] [address]Dr. Slick Broderick PRBC LEUKOREDUCEDon 03-29-20 PRBC LEUKOREDUCED Cross Match Result Compatible Unit Blood Type O Pos Unit Number [id number] Status Information Transfused Product ID Red Blood Cells Product Code [id number] Normal [facility] Comment on above: Performed By: #### P RBC ####[facility] Yvqqchpjln6434[address] [place], [place] [address]Dr. Slick Broderick PROF CHEM 8 (BAS METB)on Anion gap [Moles/Vol] 9.6 mmol/L Normal [facility] Comment on above: Performed By: #### B MP ####[facility] Uqttpweelb5211[address] [place], [place] [address]Dr. Slick Broderick Calcium [Mass/Vol] 9.4 mg/dL Normal 8.5-10.1 [facility] Comment on above: Performed By: #### B MP ####[facility] Ahbhoryfsl7226 [place] [address]Dr. Slick Broderick Chloride [Moles/Vol] 101 mmol/L Normal 98-107 [facility] Comment on above: Performed By: #### B MP ####[facility] Imedeuqupo6[address] [place], [place] [address]Dr. Slick Broderick CO2 [Moles/Vol] 28.3 mmol/L Normal 21.0-32.0 [facility] Comment on above: Performed By: #### B MP ####[facility] Nwuakwpgfc437[address] [place], [place] [address]Dr. Slick Broderick Creatinine [Mass/Vol] 1.56 mg/dL Critically high 0.55-1.02 [facility] Comment on above: Performed By: #### B MP ####[facility] Gtfixsxmuk4887 [place] [address]Dr. Slick Broderick EGFR-AF KENYAN 39 mL/min/1.73m2 Critically low >=60 [facility] Comment on above: Performed By: #### B MP ####[facility] Gnomkscodh9[address] [place], [place] [address]Dr. Slick Broderick EGFR-NON AF KENYAN 33 mL/min/1.73m2 Critically low >=60 [facility] Comment on above: Performed By: #### B MP ####[facility] Tjligwdvcv989[address] [place], [place] [address]Dr. Slick Broderick Glucose [Mass/Vol] 88 mg/dL Normal 74-106 [facility] Comment on above: Performed By: #### B MP ####[facility] Sxddzkllho9584[address] [place], [place] [address]Dr. Slick Broderick Potassium [Moles/Vol] 4.9 mmol/L Normal 3.5-5.1 [facility] Comment on above: Performed By: #### B MP ####[facility] Gqsbsfsonj617[address] [place], [place] [address]Dr. Slick Broderick Sodium [Moles/Vol] 134 mmol/L Critically low 136-145 [facility] Comment on above: Performed By: #### B MP ####[facility] Aawhicehfk3758[address] [place], [place] [address]Dr. Slick Broderick Urea nitrogen [Mass/Vol] 50.0 mg/dL Critically high 7.0-18.0 [facility] Comment on above: Performed By: #### B MP ####[facility] Sbucukfdkw0224[address] [place], [place] [address]Dr. Slick Broderick Urea nitrogen/Creatinine [Mass ratio] 32.1 mg/mg Normal [facility] Comment on above: Performed By: #### B MP ####[facility] Zqryyhglvi8[address] [place], [place] [address]Dr. Slick Broderick CBC AUTO DIFFon 03-28-2022 BASO # 0.1 103/ul Normal 0.0-0.1 [facility] Comment on above: Performed By: #### C BC ####[facility] Amsqnpwsxo6905 [place] [address]Dr. Slick Broderick Basophils/100 WBC (Bld) 0.7 % Normal 0.2-2.0 [facility] Comment on above: Performed By: #### C BC ####[facility] Rftthsyvrk0875 [place] [address]Dr. Slick Broderick EO # 0.4 103/ul Normal 0.0-0.7 [facility] Comment on above: Performed By: #### C BC ####[facility] Foeavlzitf34[address] [place], [place] [address]Dr. Slick Broderick Eosinophils/100 WBC (Bld) 5.5 % Normal 0.9-7.0 [facility] Comment on above: Performed By: #### C BC ####[facility] Fzutdbrmcn52[address] [place], [place] [address]Dr. Slick Broderick Erythrocyte distribution width (RBC) [Ratio] 13.6 % Normal 11.0-15.0 [facility] Comment on above: Performed By: #### C BC ####[facility] Ytgtrhrtwp46[address] [place], [place] [address]Dr. Slick Broderick Hematocrit (Bld) [Volume fraction] 27.9 % Critically low 36.0-48.0 [facility] Comment on above: Performed By: #### C BC ####[facility] Kvaocucekj[address] [place], [place] [address]Dr. Slick Broderick Hemoglobin (Bld) [Mass/Vol] 9.0 g/dL Critically low 12.0-16.0 [facility] Comment on above: Performed By: #### C BC ####[facility] Viuxtiwtrr998[address] [place], [place] [address]Dr. Slick Davie IG # 0.02 10e3/ul Normal 0.00-0.03 [facility] Comment on above: Performed By: #### C BC ####[facility] Ztedzzcopl1585 [place], [place] [address]Jn. Slick Broderick IG % 0.3 % Normal 0.0-0.5 [facility] Comment on above: Performed By: #### C BC ####[facility] Hvpzlscdvm6057 [place], [place] [address]Ha. Slick Broderick LYMPH # 0.9 103/ul Critically low 1.2-3.8 [facility] Comment on above: Performed By: #### C BC ####[facility] Kzwyfiogdq3284 [place] [phone]. Slick Broderick Lymphocytes/100 WBC (Bld) 13.0 % Critically low 20.5-60.0 [facility] Comment on above: Performed By: #### C BC ####[facility] Onnuvchkhp4629 [place] [phone]. Slick Broderick MANUAL DIFF REQ NO Normal [facility] Comment on above: Performed By: #### C BC ####[facility] Andiczbbxf9020 [place] [phone]. Slick Broderick MCH (RBC) [Entitic mass] 29.6 pg Normal 26.7-34.0 [facility] Comment on above: Performed By: #### C BC ####[facility] Sczdindund3731 [place] [phone]. Slick Broderick MCHC (RBC) [Mass/Vol] 32.3 g/dL Normal 29.9-35.2 [facility] Comment on above: Performed By: #### C BC ####[facility] Csuuoumgrc2958 [place] [phone]. Slick Broderick MCV (RBC) [Entitic vol] 91.8 fL Normal 81.0-99.0 [facility] Comment on above: Performed By: #### C BC ####[facility] Xxerwarsty2934 [place] [phone]. Slick Broderick MONO # 0.7 103/ul Normal 0.3-0.8 [facility] Comment on above: Performed By: #### C BC ####[facility] Zrbgttwsfs7269 [place] [phone]. Slick Broderick Monocytes/100 WBC (Bld) 11.1 % Normal 1.7-12.0 [facility] Comment on above: Performed By: #### C BC ####[facility] Zqvwrjlgac4875 [place] [phone]. Slick Broderick NEUT # 4.6 103/ul Normal 1.4-6.5 [facility] Comment on above: Performed By: #### C BC ####[facility] Izuprhvfda3674 [place] [phone]. Slick Broderick Neutrophils/100 WBC (Bld) 69.4 % Normal 43.0-75.0 [facility] Comment on above: Performed By: #### C BC ####[facility] Exkwqrkvpg4057 [place] [phone]. Slick Broderick Platelet mean volume (Bld) [Entitic vol] 8.9 fL Critically low 9.5-13.5 [facility] Comment on above: Performed By: #### C BC ####[facility] Gygklnovlu7605 [place] [phone]. Slick Broderick PLT 216 103/ul Normal 150-450 [facility] Comment on above: Performed By: #### C BC ####[facility] Vgjzrarkxw4859 [place] [phone]. Slick Broderick RBC 3.04 106/ul Critically low 4.20-5.40 [facility] Comment on above: Performed By: #### C BC ####[facility] Rosamolfbo3812 [place] [phone]. Slick Broderick WBC 6.7 103/ul Normal 4.0-11.0 [facility] Comment on above: Performed By: #### C BC ####[facility] Peeiktiklv3041 [place] [phone]. Slick Broderick BASO # 0.0 103/ul Normal 0.0-0.1 [facility] Comment on above: Performed By: #### C BC ####[facility] Udvdqbpnuy8275 [place] [phone]. Slick Broderick Basophils/100 WBC (Bld) 0.5 % Normal 0.2-2.0 [facility] Comment on above: Performed By: #### C BC ####[facility] Kdildtbrqh5775 [place] [address]Dr. Slick Broderick EO # 0.4 103/ul Normal 0.0-0.7 [facility] Comment on above: Performed By: #### C BC ####[facility] Bardfvibbl8126 [place] [address]Dr. Slick Broderick Eosinophils/100 WBC (Bld) 5.3 % Normal 0.9-7.0 [facility] Comment on above: Performed By: #### C BC ####[facility] Lklsoxaegf0359 [place] [address]Dr. Slick Broderick Erythrocyte distribution width (RBC) [Ratio] 12.9 % Normal 11.0-15.0 [facility] Comment on above: Performed By: #### C BC ####[facility] Pueitojnbc[address] [place], [place] [address]Dr. Slick Broderick Hematocrit (Bld) [Volume fraction] 23.9 % Critically low 36.0-48.0 [facility] Comment on above: Performed By: #### C BC ####[facility] Qrguqteeky3600 [place] [address]Dr. Slick Broderick Hemoglobin (Bld) [Mass/Vol] 7.7 g/dL Critically low 12.0-16.0 [facility] Comment on above: Performed By: #### C BC ####[facility] Vhnihfewuv2571 [place] [address]Dr. Slick Davie IG # 0.04 10e3/ul Critically high 0.00-0.03 [facility] Comment on above: Performed By: #### C BC ####[facility] Kybhhazxiy2281 [place] [address]Dr. Slick Broderick IG % 0.5 % Normal 0.0-0.5 [facility] Comment on above: Performed By: #### C BC ####[facility] Lvvbsomvvy5462 [place], [place] [address]Zl. Slick Broderick LYMPH # 0.9 103/ul Critically low 1.2-3.8 [facility] Comment on above: Performed By: #### C BC ####[facility] Nwnyityoid1295 [place], [place] [address]Wx. Slick Broderick Lymphocytes/100 WBC (Bld) 11.7 % Critically low 20.5-60.0 [facility] Comment on above: Performed By: #### C BC ####[facility] Dhqhraxdrq9503 [place] [phone]. Meaganwendie Broderick MANUAL DIFF REQ NO Normal [facility] Comment on above: Performed By: #### C BC ####[facility] Vzfodjzlom5741 [place] [phone]. Slick Davie MCH (RBC) [Entitic mass] 30.1 pg Normal 26.7-34.0 [facility] Comment on above: Performed By: #### C BC ####[facility] Feyosvpypi4314 [place] [phone]. Slick Broderick MCHC (RBC) [Mass/Vol] 32.2 g/dL Normal 29.9-35.2 [facility] Comment on above: Performed By: #### C BC ####[facility] Zunxxpdrmq6331 [place] [phone]. Slick Davie MCV (RBC) [Entitic vol] 93.4 fL Normal 81.0-99.0 [facility] Comment on above: Performed By: #### C BC ####[facility] Wssqppgbqd3321 [place] [phone]. Slick Davie MONO # 0.9 103/ul Critically high 0.3-0.8 [facility] Comment on above: Performed By: #### C BC ####[facility] Sjttskapii9729 [place] [phone]. Slick Davie Monocytes/100 WBC (Bld) 12.0 % Normal 1.7-12.0 [facility] Comment on above: Performed By: #### C BC ####[facility] Pojckfvnwq0305 [place] [phone]. Slick Broderick NEUT # 5.4 103/ul Normal 1.4-6.5 [facility] Comment on above: Performed By: #### C BC ####[facility] [facility] Gzcnkxmpjv1084 [place], [place] [address]Dp. Slick Broderick Neutrophils/100 WBC (Bld) 70.0 % Normal 43.0-75.0 The [facility] Comment on above: Performed By: #### C BC ####[facility] Ojwutafrry1174 [place] [id number]. Slick Broderick Platelet mean volume (Bld) [Entitic vol] 9.0 fL Critically low 9.5-13.5 [facility] Comment on above: Performed By: #### C BC ####[facility] Czxcngnbmq8833 [place] [phone]. Slick Broderick PLT 210 103/ul Normal 150-450 [facility] Comment on above: Performed By: #### C BC ####[facility] Toetwfrolg6020 [place] [phone]. Slick Broderick RBC 2.56 106/ul Critically low 4.20-5.40 The [facility] Comment on above: Performed By: #### C BC ####[facility] Cjrmltmlnl6847 [place] [phone]. Slick Broderick WBC 7.7 103/ul Normal 4.0-11.0 [facility] Comment on above: Performed By: #### C BC ####[facility] Taepnsilup[address]74 [place] [phone]. Slick Broderick CULTURE URINEon 03-28-2022 CULTURE URINE Culture Observations: NO GROWTH. Normal The [facility] Comment on above: Performed By: #### U RCX ####[facility] Mdsvhafqoo[address] [place], [place] [address]Dr. Slick Broderick Covid-19 PCR (CVDTB)on 03-12 SARS-CoV-2 (COVID-19) RNA DONNIE+probe Ql (Unsp spec) Not detected Normal NOT DETECTED [facility] Comment on above: Result Comment: When [...] for this test is supported by the [place] of Health and Human Service's declaration that [...] be used). Performed By: #### C VDTBH ####[facility] Kzlwjgolsi[address] [place], [place] [address]Dr. Slikc Broderick IRONon 03-28-2022 Iron [Mass/Vol] 32.0 ug/dL Critically low 50.0-170.0 [facility] Comment on above: Performed By: #### I YUNIOR ####[facility] Vsobqahkky026[address] [place], [place] [address]Dr. Meaganwendie Davie POINT OF CARE GLUCOSEon 03-12 Glucose [Mass/Vol] 119 mg/dL Critically high 74-106 [facility] Comment on above: Performed By: #### P OCGLUC ####[facility] Bgzmngvxbs32[address] [place], [place] [address]Dr. Slick Broderick Glucose [Mass/Vol] 178 mg/dL Critically high 74-106 [facility] Comment on above: Performed By: #### P OCGLUC ####[facility] Lhppfkiqcn594[address] [place], [place] [address]Dr. Slick Broderick Glucose [Mass/Vol] 106 mg/dL Normal 74-106 [facility] Comment on above: Performed By: #### P OCGLUC ####[facility] Taavzzodom6[address] [place], [place] [address]Dr. Slick Broderick PROF CHEM 8 (BAS METB)on Anion gap [Moles/Vol] 9.5 mmol/L Normal [facility] Comment on above: Performed By: #### B MP ####[facility] Nftiaopyku5246 [place] [address]Dr. Slick Davie Calcium [Mass/Vol] 9.5 mg/dL Normal 8.5-10.1 [facility] Comment on above: Performed By: #### B MP ####[facility] Pfteaeuyyv3161 [place] [address]Dr. Slick Broderick Chloride [Moles/Vol] 98 mmol/L Normal 98-107 [facility] Comment on above: Performed By: #### B MP ####[facility] Ggvxnsyrpb1480 [place] [address]Dr. Slick Broderick CO2 [Moles/Vol] 28.5 mmol/L Normal 21.0-32.0 The [facility] Comment on above: Performed By: #### B MP ####[facility] Rxlscowomb7430 [place] [address]Dr. Slick Broderick Creatinine [Mass/Vol] 1.90 mg/dL Critically high 0.55-1.02 [facility] Comment on above: Performed By: #### B MP ####[facility] Eszlrytfgt7956 [place] [address]Dr. Slick Broderick EGFR-AF KENYAN 31 mL/min/1.73m2 Critically low >=60 [facility] Comment on above: Performed By: #### B MP ####[facility] Tlpxogrdtf2857 [place] [address]Dr. Slick Broderick EGFR-NON AF KENYAN 26 mL/min/1.73m2 Critically low >=60 [facility] Comment on above: Performed By: #### B MP ####[facility] Dtehytkrwq4101 [place] [address]Dr. Slick Broderick Glucose [Mass/Vol] 102 mg/dL Normal 74-106 [facility] Comment on above: Performed By: #### B MP ####[facility] Fbzgtimsfy2780 [place] [phone]. Slick Broderick Potassium [Moles/Vol] 4.0 mmol/L Normal 3.5-5.1 [facility] Comment on above: Performed By: #### B MP ####[facility] Fmwviftvue[address] [place], [place] [id number]. Slick Broderick Sodium [Moles/Vol] 132 mmol/L Critically low 136-145 [facility] Comment on above: Performed By: #### B MP ####[facility] Darfqkdgty208[address] [place], [place] [address]Dr. Slick Broderick Urea nitrogen [Mass/Vol] 56.0 mg/dL Critically high 7.0-18.0 [facility] Comment on above: Performed By: #### B MP ####[facility] Blmkgyflcq1438[address] [place], [place] [address]Dr. Slick Broderick Urea nitrogen/Creatinine [Mass ratio] 29.5 mg/mg Normal [facility] Comment on above: Performed By: #### B MP ####[facility] Xcoammykrv40[address] [place], [place] [address]Dr. Slick Davie T4on 03-28-2022 T4 [Mass/Vol] 4.90 ug/dL Normal 4.80-13.90 [facility] Comment on above: Performed By: #### T 4 ####[facility] Rnyiauntuf63[address] [place], [place] [address]Dr. Slick Broderick TSHon 03-28-2022 TSH 2.765 uIU/mL Normal 0.358-3.740 [facility] Comment on above: Performed By: #### T SH ####[facility] Jwvwagdggh45[address] [place], [place] [address]Dr. Slick Broderick TYPE AND SCREENon 03-28-2022 TYPE AND SCREEN Negative Normal [facility] Comment on above: Performed By: #### T NS ####[facility] Gxrqggzkqz066[address] [place], [place] [address]Dr. Slick Davie UA RANDOM W/MICROSCOPICon BACTERIA NONE SEEN Normal NONE SEEN The [facility] Comment on above: Performed By: #### U AMIC ####[facility] Uujpgeetdu2656 [place] [address]Dr. Slick Broderick Bilirubin Ql (U) Negative Normal NEGATIVE The [facility] Comment on above: Performed By: #### U AMIC ####[facility] Svarwwiulb3706 [place] [address]Dr. Slick Broderick CAST NONE SEEN Normal NONE SEEN [facility] Comment on above: Performed By: #### U AMIC ####[facility] Vyuhrzyihr766[address] [place], [place] [address]Dr. Slick Broderick Clarity (U) CLEAR Normal CLEAR [facility] Comment on above: Performed By: #### U AMIC ####[facility] Dhuwzklmnj16[address] [place], [place] [address]Dr. Slick Broderick Color (U) LT. YELLOW Normal YELLOW [facility] Comment on above: Performed By: #### U AMIC ####[facility] Asncwzacvc5744[address] [place], [place] [address]Dr. Slick Broderick Crystals LM Nom (Urine sed) NONE SEEN Normal NONE SEEN The [facility] Comment on above: Performed By: #### U AMIC ####[facility] Jwzqenihyh212[address] [place], [place] [address]Dr. Slick Broderick Epithelial cells LM Ql (Urine sed) FEW Abnormal NONE SEEN /RARE [facility] Comment on above: Performed By: #### U AMIC ####[facility] Eecatbccso8169[address] [place], [place] [address]Dr. Slick Broderick Glucose Ql (U) Negative Normal NEGATIVE The [facility] Comment on above: Performed By: #### U AMIC ####[facility] Woiujmkrra1113[address] [place], [place] [address]Dr. Slick Broderick Hemoglobin Ql (U) MODERATE Abnormal NEGATIVE The [facility] Comment on above: Performed By: #### U AMIC ####[facility] Sidcjtiwqh880[address] [place], [place] [address]Dr. Slick Broderick Ketones Ql (U) Negative Normal NEGATIVE The [facility] Comment on above: Performed By: #### U AMIC ####[facility] Ddjheabpes9242 [place] [address]Dr. Slick Broderick LEUKOCYTES TRACE Abnormal NEGATIVE [facility] Comment on above: Performed By: #### U AMIC ####[facility] Dpuhimprwa0397 [place] [address]Dr. Slick Broderick MUCOUS NONE SEEN Normal NONE SEEN [facility] Comment on above: Performed By: #### U AMIC ####[facility] Crbfjebtbm6996[address] [place], [place] [address]Dr. Slick Broderick Nitrite Ql (U) Negative Normal NEGATIVE The [facility] Comment on above: Performed By: #### U AMIC ####[facility] Kdfzuhnguu7077[address] [place], [place] [address]Dr. Slick Broderick pH (U) 6.0 [pH] Normal 5-9 [facility] Comment on above: Performed By: #### U AMIC ####[facility] Kiaoeuffvs2584[address] [place], [place] [address]Dr. Slick Broderick RBC 5-10 Abnormal 0-2 [facility] Comment on above: Performed By: #### U AMIC ####[facility] Wllvyekqjc9301[address] [place], [place] [address]Dr. Meaganwendie Broderick SPEC GRAVITY <=1.005 Abnormal 1.005-<=1.0 25 [facility] Comment on above: Performed By: #### U AMIC ####[facility] Lmabqrdnrz8535[address] [place], [place] [address]Dr. Slick Broderick UA PROTEIN Negative Normal NEGATIVE/ TRACE [facility] Comment on above: Performed By: #### U AMIC ####[facility] Gzvsdnblkz176[address] [place], [place] [address]Dr. Slick Broderick Urobilinogen Qn (U) 0.2 {Hiren'U}/dL Normal 0.2 - 1. 0 [facility] Comment on above: Performed By: #### U AMIC ####[facility] Syrljmobmv9356[address] [place], [place] [address]Dr. Slick Broderick WBC 2-5 Abnormal NONE SEEN The [facility] Comment on above: Performed By: #### U AMIC ####[facility] Jxrmvxkpnv0879 [place] [phone]. Slick Davie CBC AUTO DIFFon 03-27-2022 BASO # 0.0 103/ul Normal 0.0-0.1 [facility] Comment on above: Performed By: #### C BC ####[facility] Smampkhorh5687 [place] [phone]. Slick Broderick Basophils/100 WBC (Bld) 0.5 % Normal 0.2-2.0 [facility] Comment on above: Performed By: #### C BC ####[facility] Xuriibudfa044[address] [place], [place] [address]Dr. Slick Broderick EO # 0.4 103/ul Normal 0.0-0.7 [facility] Comment on above: Performed By: #### C BC ####[facility] Wtqibuzpji4950[address] [place], [place] [address]Dr. Slick Broderick Eosinophils/100 WBC (Bld) 5.2 % Normal 0.9-7.0 [facility] Comment on above: Performed By: #### C BC ####[facility] Scaeefqjlo12[address] [place], [place] [address]Dr. Slick Davie Erythrocyte distribution width (RBC) [Ratio] 13.1 % Normal 11.0-15.0 [facility] Comment on above: Performed By: #### C BC ####[facility] Wzjoqabvyq7033[address] [place], [place] [address]Dr. Meaganwendie Broderick Hematocrit (Bld) [Volume fraction] 24.7 % Critically low 36.0-48.0 [facility] Comment on above: Performed By: #### C BC ####[facility] Zinuqzuchp95[address] [place], [place] [address]Dr. Slick Broderick Hemoglobin (Bld) [Mass/Vol] 7.9 g/dL Critically low 12.0-16.0 [facility] Comment on above: Performed By: #### C BC ####[facility] Nfcdcjebkb05[address] [place], [place] [address]Dr. Slick Broderick IG # 0.06 10e3/ul Critically high 0.00-0.03 [facility] Comment on above: Performed By: #### C BC ####[facility] Hjvnfrvood8[address] [place] [address]Dr. Slick Broderick IG % 0.8 % Critically high 0.0-0.5 [facility] Comment on above: Performed By: #### C BC ####[facility] Orjaegjytm1181 [place] [address]DrEmma Slick Davie LYMPH # 0.9 103/ul Critically low 1.2-3.8 [facility] Comment on above: Performed By: #### C BC ####[facility] Bnwcaoojle3509 [place] [address]Dr. Slick Davie Lymphocytes/100 WBC (Bld) 11.1 % Critically low 20.5-60.0 [facility] Comment on above: Performed By: #### C BC ####[facility] Vgbguytcol3906 [place] [address]Dr. Meaganwendie Broderick MANUAL DIFF REQ NO Normal [facility] Comment on above: Performed By: #### C BC ####[facility] Cknozttfdw7662 [place] [address]Dr. Slick Davie MCH (RBC) [Entitic mass] 29.7 pg Normal 26.7-34.0 [facility] Comment on above: Performed By: #### C BC ####[facility] Deaucbrbcj4157 [place] [address]Dr. Slick Davie MCHC (RBC) [Mass/Vol] 32.0 g/dL Normal 29.9-35.2 [facility] Comment on above: Performed By: #### C BC ####[facility] Hthmxamulc5358 [place] [address]DrEmma Slick Davie MCV (RBC) [Entitic vol] 92.9 fL Normal 81.0-99.0 [facility] Comment on above: Performed By: #### C BC ####[facility] Iorytwtvli8302 [place] [address]DrEmma Broderick MONO # 0.8 103/ul Normal 0.3-0.8 [facility] Comment on above: Performed By: #### C BC ####[facility] Nxbwdnmtad6758 [place] [phone]. Slick Broderick Monocytes/100 WBC (Bld) 9.5 % Normal 1.7-12.0 [facility] Comment on above: Performed By: #### C BC ####[facility] Mlzrfhhwxy1069 [place] [phone]. Slick Broderick NEUT # 5.8 103/ul Normal 1.4-6.5 [facility] Comment on above: Performed By: #### C BC ####[facility] Mtcatgdmjs6777 [place] [address]Dr. Slick Broderick Neutrophils/100 WBC (Bld) 72.9 % Normal 43.0-75.0 [facility] Comment on above: Performed By: #### C BC ####[facility] Ohdbgzsddq6804 [place] [address]Dr. Slick Broderick Platelet mean volume (Bld) [Entitic vol] 8.9 fL Critically low 9.5-13.5 [facility] Comment on above: Performed By: #### C BC ####[facility] Plxtglhswr8545 [place] [phone]. Slick Broderick PLT 220 103/ul Normal 150-450 [facility] Comment on above: Performed By: #### C BC ####[facility] Eatduaxhgp5049 [place] [phone]. Slick Broderick RBC 2.66 106/ul Critically low 4.20-5.40 [facility] Comment on above: Performed By: #### C BC ####[facility] Zgsozqsjvu3741 [place] [phone]. Slick Broderick WBC 7.9 103/ul Normal 4.0-11.0 [facility] Comment on above: Performed By: #### C BC ####[facility] Fowgrgqggl3016 [place] [phone]. Slick Broderick OCC BLD IMMUNO SCREENon 10- OCCULT BLOOD Positive Abnormal NEGATIVE [facility] Comment on above: Performed By: #### O BSCRN ####[facility] Gzkvhiosxg8043 [place] [address]DrEmma Broderick PROF 14(COMP METB)on 03-27-2 022 Albumin [Mass/Vol] 3.2 g/dL Critically low 3.4-5.0 [facility] Comment on above: Performed By: #### C MP ####[facility] Pncknkdvlt1119 [place] [address]Dr. Slick Broderick Albumin/Globulin [Mass ratio] 0.9 {ratio} Normal [facility] Comment on above: Performed By: #### C MP ####[facility] Bgnqchnwvk3816 [place] [address]Dr. Slick Broderick ALP [Catalytic activity/Vol] 101 U/L Normal 46-116 [facility] Comment on above: Performed By: #### C MP ####[facility] Qpzhdojjvi7646[address] [place], [place] [address]Dr. Slick Broderick ALT [Catalytic activity/Vol] 28 U/L Normal 14-59 [facility] Comment on above: Performed By: #### C MP ####[facility] Bgzlswfihb6747 [place] [address]Dr. Slick Broderick Anion gap [Moles/Vol] 11.5 mmol/L Normal [facility] Comment on above: Performed By: #### C MP ####[facility] Bunauzcghj2207 [place] [address]Dr. Slick Broderick AST [Catalytic activity/Vol] 21 U/L Normal 15-37 [facility] Comment on above: Performed By: #### C MP ####[facility] Zjbcwmnbyx8967 [place] [address]DrEmma Broderick Bilirubin [Mass/Vol] 0.2 mg/dL Normal 0.2-1.0 [facility] Comment on above: Performed By: #### C MP ####[facility] Gewukvaxgo9067 [place] [address]Dr. Slick Broderick Calcium [Mass/Vol] 9.3 mg/dL Normal 8.5-10.1 [facility] Comment on above: Performed By: #### C MP ####[facility] Ovseldabaw3128 [place] [phone]. Slick Broderick Chloride [Moles/Vol] 93 mmol/L Critically low 98-107 [facility] Comment on above: Performed By: #### C MP ####[facility] Rczylpmurc8333 [place] [phone]. Slick Broderick CO2 [Moles/Vol] 27.3 mmol/L Normal 21.0-32.0 [facility] Comment on above: Performed By: #### C MP ####[facility] Uhirqfpwhp2782 [place] [address]Dr. Slick Davie Creatinine [Mass/Vol] 1.98 mg/dL Critically high 0.55-1.02 [facility] Comment on above: Performed By: #### C MP ####[facility] Sgidxchopi3487 [place] [address]Dr. Slick Davie EGFR-AF KENYAN 30 mL/min/1.73m2 Critically low >=60 [facility] Comment on above: Performed By: #### C MP ####[facility] Xvtvmrqphh11[address] [place], [place] [address]Dr. Slick Broderick EGFR-NON AF KENYAN 25 mL/min/1.73m2 Critically low >=60 [facility] Comment on above: Performed By: #### C MP ####[facility] Iyqekchykd1968 [place] [address]Dr. Slick Davie Globulin (S) [Mass/Vol] 3.6 g/dL Normal [facility] Comment on above: Performed By: #### C MP ####[facility] Oeeiedzhzp8475 [place] [phone]. Slick Davie Glucose [Mass/Vol] 123 mg/dL Critically high 74-106 [facility] Comment on above: Performed By: #### C MP ####[facility] Nffqviasnv1613 [place] [phone]. Slick Davie Potassium [Moles/Vol] 3.8 mmol/L Normal 3.5-5.1 [facility] Comment on above: Performed By: #### C MP ####[facility] Diojadzjnq2136 [place] [address]Dr. Slick Broderick Protein [Mass/Vol] 6.8 g/dL Normal 6.4-8.2 [facility] Comment on above: Performed By: #### C MP ####[facility] Otxywxndth8033 [place] [address]Dr. Slick Broderick Sodium [Moles/Vol] 128 mmol/L Critically low 136-145 [facility] Comment on above: Performed By: #### C MP ####[facility] Crkklidyjj8814 [place] [address]Dr. Slick Broderick Urea nitrogen [Mass/Vol] 64.0 mg/dL Critically high 7.0-18.0 [facility] Comment on above: Performed By: #### C MP ####[facility] Lfvsbuliik5[address] [place], [place] [address]Dr. Slick Davie Urea nitrogen/Creatinine [Mass ratio] 32.3 mg/mg Normal [facility] Comment on above: Performed By: #### C MP ####[facility] Wdzrzylokv06[address] [place], [place] [address]Dr. Slick Broderick TROPONIN, HIGH SENSITIVITYon 03-27-2022 HSTROP 9.0 pg/mL Normal 4.0-51.3 [facility] Comment on above: Result Comment: CUT- OFF POINTS HAVE BEEN ESTABLISHED BASED ON THE FOURTH UNIVERSAL DEFINITIONS OF MYOCARDIALINFARCTION. THE UPPER REFERENCE LIMIT (URL) OF TROPONIN, DEFINED THE 99TH PERCENTILE OFcTnI DISTRIBUTION IN A REFERENCE POPULATION, HAS BEEN CONFIRMED THE DECISION THRESHOLDFOR DC DIAGNOSIS. Performed By: #### H STROPN ####[facility] Crscjqhgyx99[address] [place], [place] [address]Dr. Slick Davie Progress Noteson 03-24-2022 Automated Teller Manager Authentication Interface Message Text 1:32 AM EMERGENCY TRIAGE, TREAT AND TRANSPORT (ET3) DOCUMENTATION OF TELEHEALTH VISIT Date / Time: 03/24/2022 / 1:32 AM Name: Linda Nascimento : 1950 SSN: [id number] EMS Agency: [facility] [] Verbal consent obtained [x] [...] 02-12 Free Thyroxine Index 2.3 Normal 1.2-4.9 [facility] Comment on above: Performed By: #### T HYLC ####[facility] Funnulaghg4051 [place], [place] [address]UbEmma Broderick T3 Uptake 31 % Normal 24-39 [facility] Comment on above: Performed By: #### T HYLC ####[facility] Vqrqitxmfb6733 [place], [place] [address]MiEmma Broderick T4 [Mass/Vol] 7.4 ug/dL Normal 4.5-12.0 [facility] Comment on above: Performed By: #### T HYLC ####[facility] Ymicpwfdoa2089 [place] [phone]. Slick Broderick VIT D 25-OH LABCORPon 2021 Vitamin D, 25-Hydroxy 58.7 ng/mL Normal 30.0-100.0 [facility] Comment on above: Result Comment: Karla min D deficiency has been defined by the [place] [facility] and an Endocrine Society practice guideline as alevel of serum 25-OH vitamin D less than 20 ng/mL (1,2).The Endocrine Society went on to further define vitamin Dinsufficiency as a level between 21 and 29 ng/mL (2).1. IOM ([place] of Medicine). 2010. Dietary reference intakes for calcium and D. [place]: The National Academies Press.2. Maryam JIMENEZ, Franklin PENA, Ángela SCHAEFER, et al. Evaluation, treatment, and prevention of vitamin D deficiency: an Endocrine Society clinical practice guideline. JCEM. 2010; 96(7):1911-30. Performed By: #### V ITADLC ####[facility] Vabpxuxsux6282 [place] [address]Dr. Slick Davie CBC AUTO DIFFon 02-11-2022 BASO # 0.0 103/ul Normal 0.0-0.1 [facility] Comment on above: Performed By: #### C BC ####[facility] Zowqesflqf9003 [place] [id number]. Slick Broderick Basophils/100 WBC (Bld) 0.6 % Normal 0.2-2.0 [facility] Comment on above: Performed By: #### C BC ####[facility] Fuipfumzbf6378 [place] [phone]. Meaganwendie Broderick EO # 0.3 103/ul Normal 0.0-0.7 [facility] Comment on above: Performed By: #### C BC ####[facility] Ezczacbvhw2190 [place] [phone]. Slick Broderick Eosinophils/100 WBC (Bld) 4.6 % Normal 0.9-7.0 [facility] Comment on above: Performed By: #### C BC ####[facility] Womfowgrax0030 [place] [address]Dr. Slick Broderick Erythrocyte distribution width (RBC) [Ratio] 14.0 % Normal 11.0-15.0 [facility] Comment on above: Performed By: #### C BC ####[facility] Citwzmfyaf3644 [place] [address]Dr. Slick Broderick Hematocrit (Bld) [Volume fraction] 28.4 % Critically low 36.0-48.0 [facility] Comment on above: Performed By: #### C BC ####[facility] Tksdqqsyzh101[address] [place], [place] [address]DrEmma Slick Broderick Hemoglobin (Bld) [Mass/Vol] 9.3 g/dL Critically low 12.0-16.0 [facility] Comment on above: Performed By: #### C BC ####[facility] Flrcjrcneh35[address] [place], [place] [address]DrEmma Slick Broderick IG # 0.03 10e3/ul Normal 0.00-0.03 [facility] Comment on above: Performed By: #### C BC ####[facility] Rhtyggiffr17[address] [place], [place] [address]DrEmma Slick Broderick IG % 0.5 % Normal 0.0-0.5 [facility] Comment on above: Performed By: #### C BC ####[facility] Xabyyjfger[address] [place], [place] [address]DrEmma Slick Broderick LYMPH # 0.6 103/ul Critically low 1.2-3.8 [facility] Comment on above: Performed By: #### C BC ####[facility] Aawxazadyk[address] [place], [place] [address]DrEmma Slick Broderick Lymphocytes/100 WBC (Bld) 9.5 % Critically low 20.5-60.0 [facility] Comment on above: Performed By: #### C BC ####[facility] Dopqmfnvkm[address] [place], [place] [address]DrEmma Slick Davie MANUAL DIFF REQ NO Normal [facility] Comment on above: Performed By: #### C BC ####[facility] Xlvzmqgabp5339 [place] [phone]. Slick Davie MCH (RBC) [Entitic mass] 30.5 pg Normal 26.7-34.0 [facility] Comment on above: Performed By: #### C BC ####[facility] Kkkmpnlpuc1471 [place] [address]Dr. Meaganwendie Davie MCHC (RBC) [Mass/Vol] 32.7 g/dL Normal 29.9-35.2 [facility] Comment on above: Performed By: #### C BC ####[facility] Dufelnlpor9282 [place] [address]Dr. Slick Broderick MCV (RBC) [Entitic vol] 93.1 fL Normal 81.0-99.0 [facility] Comment on above: Performed By: #### C BC ####[facility] Mmumjwmjdb007[address] [place], [place] [address]Dr. Slick Broderick MONO # 0.6 103/ul Normal 0.3-0.8 [facility] Comment on above: Performed By: #### C BC ####[facility] Ekctkxcpyf220[address] [place], [place] [address]Dr. Slick Broderick Monocytes/100 WBC (Bld) 8.4 % Normal 1.7-12.0 [facility] Comment on above: Performed By: #### C BC ####[facility] Oqedbkyfba52[address] [place], [place] [address]Dr. Slick Broderick NEUT # 5.0 103/ul Normal 1.4-6.5 [facility] Comment on above: Performed By: #### C BC ####[facility] Wfwchqsnki104[address] [place], [place] [address]DrEmma Broderick Neutrophils/100 WBC (Bld) 76.4 % Critically high 43.0-75.0 [facility] Comment on above: Performed By: #### C BC ####[facility] Bzbyyusftn[address] [place], [place] [address]DrEmma Broderick Platelet mean volume (Bld) [Entitic vol] 9.3 fL Critically low 9.5-13.5 [facility] Comment on above: Performed By: #### C BC ####[facility] Bjvbvffrna7328 [place] [phone]. Slick Broderick PLT 192 103/ul Normal 150-450 [facility] Comment on above: Performed By: #### C BC ####[facility] Rnjfknhcbj7789 [place] [phone]. Slick Broderick RBC 3.05 106/ul Critically low 4.20-5.40 [facility] Comment on above: Performed By: #### C BC ####[facility] Vozaivhczm0918 [place] [phone]. Slick Broderick WBC 6.6 103/ul Normal 4.0-11.0 [facility] Comment on above: Performed By: #### C BC ####[facility] Hkfwxdvavt0867 [place] [phone]. Slick Broderick IRONon 02-11-2022 Iron [Mass/Vol] 62.0 ug/dL Normal 50.0-170.0 [facility] Comment on above: Performed By: #### I YUNIOR ####[facility] Ajbbpcgewd3638 [place] [phone]. Slick Broderick LIPID PROFILEon 02-11-2022 CHOL-HDL RATIO NORM SEE BELOW Normal [facility] Comment on above: Result Comment: 3.3 - 4.4 LOW RISK 4.4 - 7.1 AVERAGE RISK 7.1 - 11.0 MODERATE RISK >11.0 HIGH RISK Performed By: #### C MP, LIPID, TSH ####[facility] Shyquakqqg5879 [place] [phone]. Silck Broderick Cholesterol [Mass/Vol] 204 mg/dL Critically high <=200 [facility] Comment on above: Performed By: #### C MP, LIPID, TSH ####[facility] Fvmvazbxiv5493 [place] [phone]. Slick Broderick Cholesterol in HDL [Mass/Vol] 53 mg/dL Normal 40-60 [facility] Comment on above: Performed By: #### C MP, LIPID, TSH ####[facility] Wxuifitdul5224 [place] [phone]. Slick Broderick Cholesterol in LDL [Mass/Vol] 134.0 mg/dL Normal [facility] Comment on above: Performed By: #### C MP, LIPID, TSH ####[facility] Adcxorpawf1006 [place] [phone]. Slick Broderick Cholesterol.total/Corinne sterol in HDL [Mass ratio] 3.8 {ratio} Normal [facility] Comment on above: Performed By: #### C MP, LIPID, TSH ####[facility] Snrkbiomhw1216 [place] [phone]. Slick Broderick HDL NORMAL > or = 60 mg/dl - LOW CARDIOVASCULAR RISK <40 mg/dl - HIGH CARDIOVASCULAR RISK Normal [facility] Comment on above: Performed By: #### C MP, LIPID, TSH ####[facility] Gxnxpuocwp2399 [place] [address]Dr. Slick Broderick LDL CALC NORMAL SEE BELOW Normal [facility] Comment on above: Result Comment: <100 mg/dl OPTIMAL 100 - 129 mg/dl NEAR OR ABOVE OPTIMAL 130 - 159 mg/dl BORDERLINE HIGH 160 - 189 mg/dl HIGH >190 mg/dl VERY HIGH Performed By: #### C MP, LIPID, TSH ####[facility] Flnbkpylye9311 [place] [address]Dr. Slick Broderick Triglyceride [Mass/Vol] 85 mg/dL Normal <=150 [facility] Comment on above: Performed By: #### C MP, LIPID, TSH ####[facility] Buvyiehcgw2555 [place] [phone]. Slick Broderick VLDL CALC 17.0 mg/dL Normal [facility] Comment on above: Performed By: #### C MP, LIPID, TSH ####[facility] Txghlsaoqf8300 [place] [address]Dr. Slick Broderick PROF 14(COMP METB)on 022 Albumin [Mass/Vol] 3.5 g/dL Normal 3.4-5.0 [facility] Comment on above: Performed By: #### C MP, LIPID, TSH ####[facility] Lobwygklvq9279 [place] [address]Dr. Meaganwendie Broderick Albumin/Globulin [Mass ratio] 0.9 {ratio} Normal [facility] Comment on above: Performed By: #### C MP, LIPID, TSH ####[facility] Kxuaalhpwd0171 [place] [phone]. Meaganwendie Broderick ALP [Catalytic activity/Vol] 93 U/L Normal 46-116 [facility] Comment on above: Performed By: #### C MP, LIPID, TSH ####[facility] Shfoovuude4977 [place] [address]Dr. Slick Broderick ALT [Catalytic activity/Vol] 21 U/L Normal 14-59 [facility] Comment on above: Performed By: #### C MP, LIPID, TSH ####[facility] Njbzijxtci2012 [place] [address]Dr. Slick Broderick Anion gap [Moles/Vol] 13.7 mmol/L Normal [facility] Comment on above: Performed By: #### C MP, LIPID, TSH ####[facility] Sgsdxifaan8303 [place] [address]Dr. Slick Broderick AST [Catalytic activity/Vol] 13 U/L Critically low 15-37 [facility] Comment on above: Performed By: #### C MP, LIPID, TSH ####[facility] Ejoeolqkxv7664 [place] [phone]. Slick Broderick Bilirubin [Mass/Vol] 0.4 mg/dL Normal 0.2-1.0 [facility] Comment on above: Performed By: #### C MP, LIPID, TSH ####[facility] Snjlwqzazn0892 [place] [phone]. Slick Broderick Calcium [Mass/Vol] 9.2 mg/dL Normal 8.5-10.1 [facility] Comment on above: Performed By: #### C MP, LIPID, TSH ####[facility] Lkzpaktyxc3320 [place] [phone]. Slick Broderick Chloride [Moles/Vol] 96 mmol/L Critically low 98-107 [facility] Comment on above: Performed By: #### C MP, LIPID, TSH ####[facility] Bnnwcbojdq8271 [place] [address]Dr. Slick Broderick CO2 [Moles/Vol] 27.8 mmol/L Normal 21.0-32.0 [facility] Comment on above: Performed By: #### C MP, LIPID, TSH ####[facility] Fxxudnhzbv7661 [place] [address]Dr. Slick Broderick Creatinine [Mass/Vol] 1.52 mg/dL Critically high 0.55-1.02 [facility] Comment on above: Performed By: #### C MP, LIPID, TSH ####[facility] Twdzylizqo5659[address] [place], [place] [address]Dr. Slick Broderick EGFR-AF KENYAN 41 mL/min/1.73m2 Critically low >=60 [facility] Comment on above: Performed By: #### C MP, LIPID, TSH ####[facility] Gwyqajgedm4324[address] [place], [place] [address]Dr. Slick Broderick EGFR-NON AF KENYAN 34 mL/min/1.73m2 Critically low >=60 [facility] Comment on above: Performed By: #### C MP, LIPID, TSH ####[facility] Kdmehorqzg4394[address] [place], [place] [address]Dr. Slick Broderick Globulin (S) [Mass/Vol] 3.7 g/dL Normal [facility] Comment on above: Performed By: #### C MP, LIPID, TSH ####[facility] Fylcvqdrvg6151 [place] [address]Dr. Slick Broderick Glucose [Mass/Vol] 96 mg/dL Normal 74-106 [facility] Comment on above: Performed By: #### C MP, LIPID, TSH ####[facility] Caljygeqpv0876 [place] [address]Dr. Slick Broderick Potassium [Moles/Vol] 4.5 mmol/L Normal 3.5-5.1 [facility] Comment on above: Performed By: #### C MP, LIPID, TSH ####[facility] Qxkcicqwzi1564 [place] [address]Dr. Slick Broderick Protein [Mass/Vol] 7.2 g/dL Normal 6.4-8.2 [facility] Comment on above: Performed By: #### C MP, LIPID, TSH ####[facility] Uuzqhmwosj7968 [place] [address]Dr. Slick Broderick Sodium [Moles/Vol] 133 mmol/L Critically low 136-145 [facility] Comment on above: Performed By: #### C MP, LIPID, TSH ####[facility] Vxyjpmzwqw1611 [place] [address]Dr. Slick Broderick Urea nitrogen [Mass/Vol] 37.0 mg/dL Critically high 7.0-18.0 [facility] Comment on above: Performed By: #### C MP, LIPID, TSH ####[facility] Wafmnroqis8474 [place] [address]Dr. Slick Broderick Urea nitrogen/Creatinine [Mass ratio] 24.3 mg/mg Normal [facility] Comment on above: Performed By: #### C MP, LIPID, TSH ####[facility] Lrwbeujssm6548 [place] [address]Dr. Slick Broderick TSHon 02-11-2022 TSH 3.993 uIU/mL Critically high 0.358-3.740 [facility] Comment on above: Performed By: #### C MP, LIPID, TSH ####[facility] Cvjhpisgfi4709 [place] [address]Dr. Slick Broderick PRBC LEUKOREDUCEDon 12-18-19 PRBC LEUKOREDUCED Normal [facility] Comment on above: Performed By: #### P RBC ####[facility] Ydujxtavge8295 [place] [address]Dr. Slick Broderick PRBC LEUKOREDUCED Cross Match Result Compatible Unit Blood Type O Pos Unit Number [id number] Status Information Transfused Product ID Red Blood Cells Product Code [id number] Normal [facility] Comment on above: Performed By: #### P RBC ####[facility] Dlchlegldo5040[address] [place], [place] [address]Dr. Slick Broderick H PYLORI ANTIBODY IGGon H. PYLORI IGG ABS 0.18 Index Value Normal 0.00-0.79 [facility] Comment on above: Result Comment: Nega tive <0.80 Equivocal 0.80 - 0.89 Positive >0.89 Performed By: #### H PYLLC ####[facility] Uvmugjkhfg402[address] [place], [place] [address]Dr. Slick Broderick BNPon 12-14-2021 Natriuretic peptide B (Bld) [Mass/Vol] 846.0 pg/mL Normal <=900.0 [facility] Comment on above: Performed By: #### C MP, BNP ####[facility] Zmmxmwnnzm4910[address] [place], [place] [address]Dr. Slick Broderick CBC AUTO DIFFon 12-14-2021 BASO # 0.1 103/ul Normal 0.0-0.1 [facility] Comment on above: Performed By: #### C BC ####[facility] Bqlpjavgor5555[address] [place], [place] [address]DrEmma Slick Davie Basophils/100 WBC (Bld) 0.7 % Normal 0.2-2.0 [facility] Comment on above: Performed By: #### C BC ####[facility] Z[address]zmzi[address] [place] [address]. Slick Broderick EO # 0.3 103/ul Normal 0.0-0.7 [facility] Comment on above: Performed By: #### C BC ####[facility] Idqklodwre61[address] [place], [place] [address]DrEmma Slick Davie Eosinophils/100 WBC (Bld) 4.6 % Normal 0.9-7.0 [facility] Comment on above: Performed By: #### C BC ####[facility] Qzevxmffkd20[address] [place], [place] [address]DrEmma Slick Broderick Erythrocyte distribution width (RBC) [Ratio] 20.0 % Critically high 11.0-15.0 [facility] Comment on above: Performed By: #### C BC ####[facility] Ejuybdggeq457[address] [place], [place] [address]Dr. Slick Davie Hematocrit (Bld) [Volume fraction] 29.1 % Critically low 36.0-48.0 [facility] Comment on above: Performed By: #### C BC ####[facility] Ucqtfvkzgl6257 [place] [address]Dr. Slick Davie Hemoglobin (Bld) [Mass/Vol] 9.1 g/dL Critically low 12.0-16.0 [facility] Comment on above: Performed By: #### C BC ####[facility] Jtaaxivlee9391 [place] [address]Dr. Slick Broderick IG # 0.06 10e3/ul Critically high 0.00-0.03 [facility] Comment on above: Performed By: #### C BC ####[facility] Oexygzfluv5105 [place] [address]Dr. Slick Broderick IG % 0.9 % Critically high 0.0-0.5 [facility] Comment on above: Performed By: #### C BC ####[facility] Cypzuqpuvt2923 [place] [address]DrEmma Broderick LYMPH # 0.8 103/ul Critically low 1.2-3.8 [facility] Comment on above: Performed By: #### C BC ####[facility] Aedqrouuuf0198 [place] [address]DrEmma Broderick Lymphocytes/100 WBC (Bld) 11.2 % Critically low 20.5-60.0 [facility] Comment on above: Performed By: #### C BC ####[facility] Rfdqdtjmmm6270 [place] [address]DrEmma Broderick MANUAL DIFF REQ NO Normal [facility] Comment on above: Performed By: #### C BC ####[facility] Szmigkcdri6562 [place] [address]DrEmma Broderick MCH (RBC) [Entitic mass] 30.5 pg Normal 26.7-34.0 [facility] Comment on above: Performed By: #### C BC ####[facility] Kesuvairad9941 [place] [address]Dr. Slick Broderick MCHC (RBC) [Mass/Vol] 31.3 g/dL Normal 29.9-35.2 [facility] Comment on above: Performed By: #### C BC ####[facility] Huiwmxivcl7233 [place] [phone]. Slick Broderick MCV (RBC) [Entitic vol] 97.7 fL Normal 81.0-99.0 [facility] Comment on above: Performed By: #### C BC ####[facility] Wqjibcfamn6191 [place] [address]Dr. Slick Broderick MONO # 0.7 103/ul Normal 0.3-0.8 [facility] Comment on above: Performed By: #### C BC ####[facility] Ctwkzafrgo9782 [place] [address]Dr. Slick Davie Monocytes/100 WBC (Bld) 9.7 % Normal 1.7-12.0 [facility] Comment on above: Performed By: #### C BC ####[facility] Rcejiawstn12[address] [place], [place] [address]Dr. Slick Broderick NEUT # 4.9 103/ul Normal 1.4-6.5 [facility] Comment on above: Performed By: #### C BC ####[facility] Qpvaqlfbru0141 [place] [address]Dr. Slick Broderick Neutrophils/100 WBC (Bld) 72.9 % Normal 43.0-75.0 [facility] Comment on above: Performed By: #### C BC ####[facility] Frsxchlbvd6339 [place] [address]Dr. Slick Davie Platelet mean volume (Bld) [Entitic vol] 8.9 fL Critically low 9.5-13.5 [facility] Comment on above: Performed By: #### C BC ####[facility] Ihnfeeymnb7104 [place] [address]Dr. Slick Davie PLT 239 103/ul Normal 150-450 [facility] Comment on above: Performed By: #### C BC ####[facility] Qmfksllfuo2316 [place] [phone]. Slick Broderick RBC 2.98 106/ul Critically low 4.20-5.40 [facility] Comment on above: Performed By: #### C BC ####[facility] Imhjzkpxqo4823 [place] [address]Dr. Slick Broderick WBC 6.8 103/ul Normal 4.0-11.0 [facility] Comment on above: Performed By: #### C BC ####[facility] Elxsbhldkv9290 [place] [address]Dr. Slick Broderick BASO # 0.1 103/ul Normal 0.0-0.1 [facility] Comment on above: Performed By: #### C BC ####[facility] Tyklfypmrq9694[address] [place], [place] [address]Dr. Slick Broderick Basophils/100 WBC (Bld) 0.9 % Normal 0.2-2.0 [facility] Comment on above: Performed By: #### C BC ####[facility] Szrodvqbwq610[address] [place], [place] [address]Dr. Slick Broderick EO # 0.3 103/ul Normal 0.0-0.7 [facility] Comment on above: Performed By: #### C BC ####[facility] Aqphscmlxt20[address] [place], [place] [address]Dr. Slick Broderick Eosinophils/100 WBC (Bld) 4.9 % Normal 0.9-7.0 [facility] Comment on above: Performed By: #### C BC ####[facility] Tufppsvbrw0694[address] [place], [place] [address]Dr. Slick Broderick Erythrocyte distribution width (RBC) [Ratio] 20.3 % Critically high 11.0-15.0 [facility] Comment on above: Performed By: #### C BC ####[facility] Ecvznigloy060[address] [place], [place] [address]Dr. Slick Broderick Hematocrit (Bld) [Volume fraction] 27.6 % Critically low 36.0-48.0 [facility] Comment on above: Performed By: #### C BC ####[facility] Virlhduoby2613 [place] [address]Dr. Slick Broderick Hemoglobin (Bld) [Mass/Vol] 8.7 g/dL Critically low 12.0-16.0 [facility] Comment on above: Performed By: #### C BC ####[facility] Azyclzjggu7235 [place] [phone]. Slikc Broderick IG # 0.05 10e3/ul Critically high 0.00-0.03 [facility] Comment on above: Performed By: #### C BC ####[facility] Huvtjnwiru3934 [place] [address]Dr. Slick Broderick IG % 0.7 % Critically high 0.0-0.5 [facility] Comment on above: Performed By: #### C BC ####[facility] Rrfhgrtyge5666 [place] [address]Dr. Slick Broderick LYMPH # 0.9 103/ul Critically low 1.2-3.8 [facility] Comment on above: Performed By: #### C BC ####[facility] Mhzuskdyxg3863 [place] [address]Dr. Slick Broderick Lymphocytes/100 WBC (Bld) 13.1 % Critically low 20.5-60.0 [facility] Comment on above: Performed By: #### C BC ####[facility] Panminrjxp7403 [place] [address]Dr. Slick Broderick MANUAL DIFF REQ NO Normal [facility] Comment on above: Performed By: #### C BC ####[facility] Olspqmwziq5445 [place] [address]Dr. Slick Broderick MCH (RBC) [Entitic mass] 31.0 pg Normal 26.7-34.0 [facility] Comment on above: Performed By: #### C BC ####[facility] Rlughnvtyq9622[address] [place], [place] [address]Dr. Slick Broderick MCHC (RBC) [Mass/Vol] 31.5 g/dL Normal 29.9-35.2 [facility] Comment on above: Performed By: #### C BC ####[facility] Deafhkoztp2086 [place] [phone]. Slick Broderick MCV (RBC) [Entitic vol] 98.2 fL Normal 81.0-99.0 [facility] Comment on above: Performed By: #### C BC ####[facility] Fmvteelswl6929 [place] [phone]. Slick Broderick MONO # 0.8 103/ul Normal 0.3-0.8 [facility] Comment on above: Performed By: #### C BC ####[facility] Rooerqxxkh8322 [place] [phone]. Slick Broderick Monocytes/100 WBC (Bld) 11.4 % Normal 1.7-12.0 [facility] Comment on above: Performed By: #### C BC ####[facility] Vjghtilcbd3976 [place] [phone]. Slick Broderick NEUT # 4.8 103/ul Normal 1.4-6.5 [facility] Comment on above: Performed By: #### C BC ####[facility] Veyjwwvern0530 [place] [phone]. Slick Broderick Neutrophils/100 WBC (Bld) 69.0 % Normal 43.0-75.0 [facility] Comment on above: Performed By: #### C BC ####[facility] Tnxcvemqgh6406 [place] [phone]. Slick Broderick Platelet mean volume (Bld) [Entitic vol] 9.3 fL Critically low 9.5-13.5 [facility] Comment on above: Performed By: #### C BC ####[facility] Uysltyfzik2455 [place] [phone]. Slick Broderick PLT 229 103/ul Normal 150-450 [facility] Comment on above: Performed By: #### C BC ####[facility] Kdzlmkmqkm6929 [place] [phone]. Slick Broderick RBC 2.81 106/ul Critically low 4.20-5.40 [facility] Comment on above: Performed By: #### C BC ####[facility] Fityaclauz3903 [place] [address]Dr. Slick Broderick WBC 7.0 103/ul Normal 4.0-11.0 [facility] Comment on above: Performed By: #### C BC ####[facility] Brvnwmcpym8618 [place] [address]Dr. Slick Broderick POINT OF CARE GLUCOSEon Glucose [Mass/Vol] 255 mg/dL Critically high 74-106 [facility] Comment on above: Performed By: #### P OCGLUC ####[facility] Asbwlyiuql4726[address] [place], [place] [address]Dr. Slick Broderick PROF 14(COMP METB)on 022 Albumin [Mass/Vol] 2.3 g/dL Critically low 3.4-5.0 [facility] Comment on above: Performed By: #### C MP, BNP ####[facility] Qqmwauvwrb0107[address] [place], [place] [address]Dr. Slick Broderick Albumin/Globulin [Mass ratio] 0.6 {ratio} Normal [facility] Comment on above: Performed By: #### C MP, BNP ####[facility] Ypbyvmtobr396[address] [place], [place] [address]Dr. Slick Broderick ALP [Catalytic activity/Vol] 94 U/L Normal 46-116 [facility] Comment on above: Performed By: #### C MP, BNP ####[facility] Penpnritku0318[address] [place], [place] [address]Dr. Slick Broderick ALT [Catalytic activity/Vol] 17 U/L Normal 14-59 [facility] Comment on above: Performed By: #### C MP, BNP ####[facility] Udyozfnmxs3424[address] [place], [place] [address]Dr. Slick Broderick Anion gap [Moles/Vol] 11.6 mmol/L Normal [facility] Comment on above: Performed By: #### C MP, BNP ####[facility] Xwwsyxnekv4258[address] [place], [place] [address]Dr. Slick Broderick AST [Catalytic activity/Vol] 13 U/L Critically low 15-37 [facility] Comment on above: Performed By: #### C MP, BNP ####[facility] Rwmonnykks9128[address] [place], [place] [address]Dr. Slick Broderick Bilirubin [Mass/Vol] 0.3 mg/dL Normal 0.2-1.0 [facility] Comment on above: Performed By: #### C MP, BNP ####[facility] Tshrwcbaxq207[address] [place], [place] [address]Dr. Slick Broderick Calcium [Mass/Vol] 7.9 mg/dL Critically low 8.5-10.1 [facility] Comment on above: Performed By: #### C MP, BNP ####[facility] Whrbizmyka7159[address] [place], [place] [address]Dr. Slick Broderick Chloride [Moles/Vol] 104 mmol/L Normal 98-107 [facility] Comment on above: Performed By: #### C MP, BNP ####[facility] Fiqaymmngr354[address] [place], [place] [address]Dr. Slick Broderick CO2 [Moles/Vol] 25.1 mmol/L Normal 21.0-32.0 [facility] Comment on above: Performed By: #### C MP, BNP ####[facility] Mvrvqkxtli5[address] [place], [place] [address]Dr. Slick Broderick Creatinine [Mass/Vol] 1.64 mg/dL Critically high 0.55-1.02 [facility] Comment on above: Performed By: #### C MP, BNP ####[facility] Hrhrrkabtt39[address] [place], [place] [address]Dr. Slick Broderick EGFR-AF KENYAN 37 mL/min/1.73m2 Critically low >=60 [facility] Comment on above: Performed By: #### C MP, BNP ####[facility] Qnwuedrwvi4454[address] [place], [place] [address]Dr. Slick Broderick EGFR-NON AF KENYAN 31 mL/min/1.73m2 Critically low >=60 [facility] Comment on above: Performed By: #### C MP, BNP ####[facility] Uwracmodxh[address] [place], [place] [address]Dr. Slick Broderick Globulin (S) [Mass/Vol] 3.6 g/dL Normal [facility] Comment on above: Performed By: #### C MP, BNP ####[facility] Djukxajiao[address] [place], [place] [address]Dr. Slick Broderick Glucose [Mass/Vol] 100 mg/dL Normal 74-106 [facility] Comment on above: Performed By: #### C MP, BNP ####[facility] Lakauardbg[address] [place], [place] [address]Dr. Slick Broderick Potassium [Moles/Vol] 4.7 mmol/L Normal 3.5-5.1 [facility] Comment on above: Performed By: #### C MP, BNP ####[facility] Uxkohtuirs67[address] [place], [place] [address]Dr. Slick Broderick Protein [Mass/Vol] 5.9 g/dL Critically low 6.4-8.2 [facility] Comment on above: Performed By: #### C MP, BNP ####[facility] Dtljvkwlat39[address] [place], [place] [address]Dr. Slick Broderick Sodium [Moles/Vol] 136 mmol/L Normal 136-145 [facility] Comment on above: Performed By: #### C MP, BNP ####[facility] Aicholrume5199[address] [place], [place] [address]Dr. Slick Broderick Urea nitrogen [Mass/Vol] 27.0 mg/dL Critically high 7.0-18.0 [facility] Comment on above: Performed By: #### C MP, BNP ####[facility] Jdpwjpsrlu7[address] [place], [place] [address]Dr. Slick Broderick Urea nitrogen/Creatinine [Mass ratio] 16.5 mg/mg Normal [facility] Comment on above: Performed By: #### C MP, BNP ####[facility] Vxegwhtnnv9[address] [place], [place] [address]Dr. Slick Broderick CBC AUTO DIFFon 12-13-2021 BASO # 0.0 103/ul Normal 0.0-0.1 [facility] Comment on above: Performed By: #### C BC ####[facility] Lrwsiqsnjm5854 [place] [phone]. Slick Broderick Basophils/100 WBC (Bld) 0.5 % Normal 0.2-2.0 [facility] Comment on above: Performed By: #### C BC ####[facility] Wduajlqeos[address] [place] [address]Dr. Slick Broderick EO # 0.3 103/ul Normal 0.0-0.7 [facility] Comment on above: Performed By: #### C BC ####[facility] Zmlrsyyodh17[address] [place], [place] [address]Dr. Slick Broderick Eosinophils/100 WBC (Bld) 4.4 % Normal 0.9-7.0 [facility] Comment on above: Performed By: #### C BC ####[facility] Zotonscrvv99[address] [place], [place] [address]Dr. Slick Broderick Erythrocyte distribution width (RBC) [Ratio] 20.5 % Critically high 11.0-15.0 [facility] Comment on above: Performed By: #### C BC ####[facility] Mnirnsyyqs69[address] [place], [place] [address]Dr. Slick Broderick Hematocrit (Bld) [Volume fraction] 29.5 % Critically low 36.0-48.0 [facility] Comment on above: Performed By: #### C BC ####[facility] Xazrtbkpwu69[address] [place], [place] [address]Dr. Slick Broderick Hemoglobin (Bld) [Mass/Vol] 9.3 g/dL Critically low 12.0-16.0 [facility] Comment on above: Result Comment: post transfusion Performed By: #### C BC ####[facility] Kiynlwbvuc256[address] [place], [place] [address]Dr. Slick Broderick IG # 0.07 10e3/ul Critically high 0.00-0.03 [facility] Comment on above: Performed By: #### C BC ####[facility] Ntsemlvewt[address] [place], [place] [id number]. Slick Broderick IG % 0.9 % Critically high 0.0-0.5 [facility] Comment on above: Performed By: #### C BC ####[facility] Txoglyqlht1380 [place] [phone]. Slick Davie LYMPH # 0.9 103/ul Critically low 1.2-3.8 [facility] Comment on above: Performed By: #### C BC ####[facility] Buvpzoyzen0502 [place] [phone]. Meaganwendie Broderick Lymphocytes/100 WBC (Bld) 11.5 % Critically low 20.5-60.0 [facility] Comment on above: Performed By: #### C BC ####[facility] Bskeprossr2168 [place] [phone]. Slick Broderick MANUAL DIFF REQ NO Normal [facility] Comment on above: Performed By: #### C BC ####[facility] Angbepexnk8936 [place] [phone]. Slick Broderick MCH (RBC) [Entitic mass] 30.9 pg Normal 26.7-34.0 [facility] Comment on above: Performed By: #### C BC ####[facility] Kkyccerkiv8525 [place] [phone]. Slick Davie MCHC (RBC) [Mass/Vol] 31.5 g/dL Normal 29.9-35.2 [facility] Comment on above: Performed By: #### C BC ####[facility] Mokizxplmh0731 [place] [phone]. Slick Broderick MCV (RBC) [Entitic vol] 98.0 fL Normal 81.0-99.0 [facility] Comment on above: Performed By: #### C BC ####[facility] Tclwauifnv5107 [place] [phone]. Slick Broderick MONO # 0.6 103/ul Normal 0.3-0.8 [facility] Comment on above: Performed By: #### C BC ####[facility] Catsuglbry0851 [place] [phone]. Slick Broderick Monocytes/100 WBC (Bld) 8.6 % Normal 1.7-12.0 [facility] Comment on above: Performed By: #### C BC ####[facility] Fhawycklfz2166 [place] [phone]. Slick Broderick NEUT # 5.5 103/ul Normal 1.4-6.5 [facility] Comment on above: Performed By: #### C BC ####[facility] Kdzaozavgu2323 [place] [phone]. Slick Broderick Neutrophils/100 WBC (Bld) 74.1 % Normal 43.0-75.0 [facility] Comment on above: Performed By: #### C BC ####[facility] Mcocliunfq2528 [place] [phone]. Slick Broderick Platelet mean volume (Bld) [Entitic vol] 9.0 fL Critically low 9.5-13.5 [facility] Comment on above: Performed By: #### C BC ####[facility] Khyvdgyiln7807 [place] [address]Dr. Slick Broderick PLT 231 103/ul Normal 150-450 [facility] Comment on above: Performed By: #### C BC ####[facility] Sabstzhwan9926 [place] [phone]. Slick Broderick RBC 3.01 106/ul Critically low 4.20-5.40 [facility] Comment on above: Performed By: #### C BC ####[facility] Pyyoptgwto6254 [place] [address]Dr. Slick Broderick WBC 7.5 103/ul Normal 4.0-11.0 [facility] Comment on above: Performed By: #### C BC ####[facility] Tqpppdaukl1772 [place] [phone]. Slick Broderick BASO # 0.0 103/ul Normal 0.0-0.1 [facility] Comment on above: Performed By: #### C BC ####[facility] Wrhrinoyto8643 [place] [address]Dr. Slick Broderick Basophils/100 WBC (Bld) 0.3 % Normal 0.2-2.0 [facility] Comment on above: Performed By: #### C BC ####[facility] Ygrimsofxz2829 [place] [phone]. Slick Broderick EO # 0.3 103/ul Normal 0.0-0.7 [facility] Comment on above: Performed By: #### C BC ####[facility] Bgdhwtbhpa5856 [place] [phone]. Slick Broderick Eosinophils/100 WBC (Bld) 3.8 % Normal 0.9-7.0 [facility] Comment on above: Performed By: #### C BC ####[facility] Ryymyfxkxo7248 [place] [address]Dr. Slick Broderick Erythrocyte distribution width (RBC) [Ratio] 17.4 % Critically high 11.0-15.0 [facility] Comment on above: Performed By: #### C BC ####[facility] Ssuncuztbz3100 [place] [address]Dr. Silck Broderick Hematocrit (Bld) [Volume fraction] 22.4 % Critically low 36.0-48.0 [facility] Comment on above: Result Comment: Test Repeated Critical Value Verified Performed By: #### C BC ####[facility] Vopapsucqk4082 [place] [address]Dr. Slick Broderick Hemoglobin (Bld) [Mass/Vol] 7.1 g/dL Critically low 12.0-16.0 [facility] Comment on above: Performed By: #### C BC ####[facility] Ylcnkjwkex8606 [place] [address]Dr. Slick Broderick IG # 0.06 10e3/ul Critically high 0.00-0.03 [facility] Comment on above: Performed By: #### C BC ####[facility] Vuqxnrcaiv8478 [place] [address]Dr. Slick Broderick IG % 0.8 % Critically high 0.0-0.5 [facility] Comment on above: Performed By: #### C BC ####[facility] Wupqbfjrbz2153 [place] [address]Dr. Slick Broderick LYMPH # 0.8 103/ul Critically low 1.2-3.8 [facility] Comment on above: Performed By: #### C BC ####[facility] Viitwpipue1440 [place] [phone]. Slick Davie Lymphocytes/100 WBC (Bld) 10.7 % Critically low 20.5-60.0 [facility] Comment on above: Performed By: #### C BC ####[facility] Ixumgdpfoc6582 [place] [phone]. Slick Broderick MANUAL DIFF REQ NO Normal [facility] Comment on above: Performed By: #### C BC ####[facility] Ovxravzqpm4458 [place] [phone]. Slick Broderick MCH (RBC) [Entitic mass] 32.3 pg Normal 26.7-34.0 [facility] Comment on above: Performed By: #### C BC ####[facility] Nsjanjzarf8888 [place] [phone]. Slick Broderick MCHC (RBC) [Mass/Vol] 31.7 g/dL Normal 29.9-35.2 [facility] Comment on above: Performed By: #### C BC ####[facility] Lncsrsvjno8005 [place] [phone]. Slick Broderick MCV (RBC) [Entitic vol] 101.8 fL Critically high 81.0-99 .0 [facility] Comment on above: Performed By: #### C BC ####[facility] Thxnpfgjng5268 [place] [phone]. Slick Broderick MONO # 0.8 103/ul Normal 0.3-0.8 [facility] Comment on above: Performed By: #### C BC ####[facility] Rhgdmvimjt0175 [place] [phone]. Slick Broderick Monocytes/100 WBC (Bld) 10.7 % Normal 1.7-12.0 [facility] Comment on above: Performed By: #### C BC ####[facility] Nusykijpea6991 [place] [phone] Broderick NEUT # 5.6 103/ul Normal 1.4-6.5 [facility] Comment on above: Performed By: #### C BC ####[facility] Fqwaxbrwcg7100 [place] [phone]. Slick Davie Neutrophils/100 WBC (Bld) 73.7 % Normal 43.0-75.0 [facility] Comment on above: Performed By: #### C BC ####[facility] Myzwwuvvpn5751 [place] [phone]. eMaganwendie Davie Platelet mean volume (Bld) [Entitic vol] 9.4 fL Critically low 9.5-13.5 [facility] Comment on above: Performed By: #### C BC ####[facility] Yoccccsbyh5460 [place] [phone]. Slick Broderick PLT 209 103/ul Normal 150-450 [facility] Comment on above: Performed By: #### C BC ####[facility] Upfitnoufs6213 [place] [phone]. Slick Broderick RBC 2.20 106/ul Critically low 4.20-5.40 [facility] Comment on above: Performed By: #### C BC ####[facility] Isivfkruyb1215 [place] [phone]. Slick Broderick WBC 7.6 103/ul Normal 4.0-11.0 [facility] Comment on above: Performed By: #### C BC ####[facility] Tktkwjqyht5520 [place] [phone] Broderick PROF 14(COMP METB)on 022 Albumin [Mass/Vol] 2.1 g/dL Critically low 3.4-5.0 [facility] Comment on above: Performed By: #### C MP ####[facility] Eahlxohfno5286 [place] [phone] Broderick Albumin/Globulin [Mass ratio] 0.7 {ratio} Normal [facility] Comment on above: Performed By: #### C MP ####[facility] Wswoxwszkf0905 [place] [phone] Broderick ALP [Catalytic activity/Vol] 83 U/L Normal 46-116 [facility] Comment on above: Performed By: #### C MP ####[facility] Vzaqsfqjbz9818 [place] [phone]. Slick Broderick ALT [Catalytic activity/Vol] 12 U/L Critically low 14-59 [facility] Comment on above: Performed By: #### C MP ####[facility] Jnqxcfptze5481 [place] [phone]. Slick Broderick Anion gap [Moles/Vol] 14.0 mmol/L Normal Th [facility] Comment on above: Performed By: #### C MP ####[facility] Ssdqfnnkic9473 [place] [phone]. Slick Broderick AST [Catalytic activity/Vol] 13 U/L Critically low 15-37 [facility] Comment on above: Performed By: #### C MP ####[facility] Cttyumfonk4462 [place] [phone]. Slick Davie Bilirubin [Mass/Vol] 0.3 mg/dL Normal 0.2-1.0 [facility] Comment on above: Performed By: #### C MP ####[facility] Irhfeisija6204 [place] [phone]. Slcik Broderick Calcium [Mass/Vol] 7.4 mg/dL Critically low 8.5-10.1 [facility] Comment on above: Performed By: #### C MP ####[facility] Avancbrqgi0160 [place] [phone]. Slick Broderick Chloride [Moles/Vol] 105 mmol/L Normal 98-107 [facility] Comment on above: Performed By: #### C MP ####[facility] Xzlwiaxidi5391 [place] [phone]. Slick Broderick CO2 [Moles/Vol] 23.0 mmol/L Normal 21.0-32.0 [facility] Comment on above: Performed By: #### C MP ####[facility] Esnkatwekg3787 [place] [phone]. Slick Davie Creatinine [Mass/Vol] 1.80 mg/dL Critically high 0.55-1.02 [facility] Comment on above: Performed By: #### C MP ####[facility] Znzxlvpizy2747 [place] [phone]. Slick Broderick EGFR-AF KENYAN 33 mL/min/1.73m2 Critically low >=60 [facility] Comment on above: Performed By: #### C MP ####[facility] Ankcuwkner1644 [place] [phone]. Slick Broderick EGFR-NON AF KENYAN 28 mL/min/1.73m2 Critically low >=60 [facility] Comment on above: Performed By: #### C MP ####[facility] Upasqhwqqp7164 [place] [phone]. Slick Davie Globulin (S) [Mass/Vol] 3.2 g/dL Normal [facility] Comment on above: Performed By: #### C MP ####[facility] Gyqssngbsh2647 [place] [address]Dr. Slick Davie Glucose [Mass/Vol] 85 mg/dL Normal 74-106 [facility] Comment on above: Performed By: #### C MP ####[facility] Agzrapqszw9838 [place] [phone]. Slick Davie Potassium [Moles/Vol] 5.0 mmol/L Normal 3.5-5.1 [facility] Comment on above: Performed By: #### C MP ####[facility] Zljxnmjhae1399 [place] [phone]. Slick Broderick Protein [Mass/Vol] 5.3 g/dL Critically low 6.4-8.2 Th [facility] Comment on above: Performed By: #### C MP ####[facility] Uhzysakinc9526 [place] [phone]. Slick Broderick Sodium [Moles/Vol] 137 mmol/L Normal 136-145 [facility] Comment on above: Performed By: #### C MP ####[facility] Hroxjvgxrb2137 [place] [phone]. Slick Davie Urea nitrogen [Mass/Vol] 30.0 mg/dL Critically high 7.0-18.0 [facility] Comment on above: Performed By: #### C MP ####[facility] Zefmqaalys[address] [place], [place] [address]Dr. Slick Broderick Urea nitrogen/Creatinine [Mass ratio] 16.7 mg/mg Normal [facility] Comment on above: Performed By: #### C MP ####[facility] Gkuvsjolfo16[address] [place], [place] [address]Dr. Slick Broderick ABO RH RETYPEon 12-12-2021 ABO and Rh group Nom (Bld) DONE Normal [facility] Comment on above: Performed By: #### R ETYPE ####[facility] Krcycdfhvk9845[address] [place], [place] [address]Dr. Slick Broderick BNPon 12-12-2021 Natriuretic peptide B (Bld) [Mass/Vol] 952.0 pg/mL Critically high <=900.0 [facility] Comment on above: Performed By: #### B MANAGEMENT DEPARTMENT CHAIR, CRP, CMP ####[facility] Kcccgnqrmd01[address] [place], [place] [address]Dr. Slick Broderick CBC AUTO DIFFon 12-12-2021 BASO # 0.0 103/ul Normal 0.0-0.1 [facility] Comment on above: Performed By: #### C BC ####[facility] Sicontynol[address] [place], [place] [address]Dr. Slick Davie Basophils/100 WBC (Bld) 0.2 % Normal 0.2-2.0 [facility] Comment on above: Performed By: #### C BC ####[facility] Htgcpatryk29[address] [place], [place] [address]Dr. Slick Broderick EO # 0.2 103/ul Normal 0.0-0.7 [facility] Comment on above: Performed By: #### C BC ####[facility] Ocnuajtlgm2532[address] [place], [place] [address]Dr. Slick Davie Eosinophils/100 WBC (Bld) 2.6 % Normal 0.9-7.0 [facility] Comment on above: Performed By: #### C BC ####[facility] Lzwyigpeou2828 [place] [address]Dr. Slick Broderick Erythrocyte distribution width (RBC) [Ratio] 17.2 % Critically high 11.0-15.0 [facility] Comment on above: Performed By: #### C BC ####[facility] Upeputjsou5410 [place] [address]Dr. Slick Broderick Hematocrit (Bld) [Volume fraction] 24.0 % Critically low 36.0-48.0 [facility] Comment on above: Performed By: #### C BC ####[facility] Lzybjztvba70[address] [place], [place] [address]Dr. Slick Broderick Hemoglobin (Bld) [Mass/Vol] 7.7 g/dL Critically low 12.0-16.0 [facility] Comment on above: Performed By: #### C BC ####[facility] Yabonqfdlv9022[address] [place], [place] [address]Dr. Slick Broderick IG # 0.05 10e3/ul Critically high 0.00-0.03 [facility] Comment on above: Performed By: #### C BC ####[facility] Moleuxnepm6790[address] [place], [place] [address]Dr. Meaganwendie Broderick IG % 0.5 % Normal 0.0-0.5 [facility] Comment on above: Performed By: #### C BC ####[facility] Ketyxomlhb9206[address] [place], [place] [address]Dr. Slick Broderick LYMPH # 0.7 103/ul Critically low 1.2-3.8 [facility] Comment on above: Performed By: #### C BC ####[facility] Tfhiycvtwy14[address] [place], [place] [address]Dr. Slick Broderick Lymphocytes/100 WBC (Bld) 7.7 % Critically low 20.5-60.0 [facility] Comment on above: Performed By: #### C BC ####[facility] Qjaqeqjias446[address] [place], [place] [address]Dr. Meaganwendie Broderick MANUAL DIFF REQ NO Normal [facility] Comment on above: Performed By: #### C BC ####[facility] Rzbbnqjrzj6988 [place] [address]Dr. Slick Broderick MCH (RBC) [Entitic mass] 32.6 pg Normal 26.7-34.0 [facility] Comment on above: Performed By: #### C BC ####[facility] Bvldiomgbm4224 [place] [address]Dr. Slick Broderick MCHC (RBC) [Mass/Vol] 32.1 g/dL Normal 29.9-35.2 [facility] Comment on above: Performed By: #### C BC ####[facility] Ugpfdhsszt6136[address] [place], [place] [address]Dr. Slick Davie MCV (RBC) [Entitic vol] 101.7 fL Critically high 81.0-99 .0 [facility] Comment on above: Performed By: #### C BC ####[facility] Snlbnpifmr38[address] [place], [place] [address]Dr. Slick Broderick MONO # 0.8 103/ul Normal 0.3-0.8 [facility] Comment on above: Performed By: #### C BC ####[facility] Sluufzhedy9138 [place] [address]Dr. Slick Broderick Monocytes/100 WBC (Bld) 8.5 % Normal 1.7-12.0 [facility] Comment on above: Performed By: #### C BC ####[facility] Ylaomwhaxz7[address] [place], [place] [address]Dr. Slick Broderick NEUT # 7.3 103/ul Critically high 1.4-6.5 [facility] Comment on above: Performed By: #### C BC ####[facility] Xlvfvknier[address] [place], [place] [address]Dr. Slick Broderick Neutrophils/100 WBC (Bld) 80.5 % Critically high 43.0-75.0 [facility] Comment on above: Performed By: #### C BC ####[facility] Crkraczrce75[address] [place], [place] [address]Dr. Slick Broderick Platelet mean volume (Bld) [Entitic vol] 8.9 fL Critically low 9.5-13.5 [facility] Comment on above: Performed By: #### C BC ####[facility] Odncnlmbbg8849 [place] [phone]. Slick Broderick PLT 204 103/ul Normal 150-450 [facility] Comment on above: Performed By: #### C BC ####[facility] Oakrvsztnc0070 [place] [phone]. Slick Broderick RBC 2.36 106/ul Critically low 4.20-5.40 [facility] Comment on above: Performed By: #### C BC ####[facility] Aypxwxkapo2122 [place] [phone]. Slick Broderick WBC 9.1 103/ul Normal 4.0-11.0 [facility] Comment on above: Performed By: #### C BC ####[facility] Hltqaudscb6481 [place] [phone]. Slick Broderick CBC W MANUAL DIFFon 12-13-19 22 ATYPICAL LYMPH # Normal [facility] Comment on above: Performed By: #### C BCMAN ####[facility] Odbbjsnldx1301 [place] [phone]. Slick Broderick ATYPICAL LYMPH % Normal [facility] Comment on above: Performed By: #### C BCMAN ####[facility] Jfayviepnm2168 [place] [address]Dr. Slick Broderick BAND # Normal 0.0-0.3 [facility] Comment on above: Performed By: #### C BCMAN ####[facility] Qkiwjsyscm4339 [place] [phone]. Yilan Broderick BAND % Normal 0-5 [facility] Comment on above: Performed By: #### C BCMAN ####[facility] Oexjrcxfuz7681 [place] [phone]. Slick Broderick BASOM # 0.00 103/ul Normal 0.00-0.10 [facility] Comment on above: Performed By: #### C BCMAN ####[facility] Ecfyomafii3642 [place] [phone]. Slick Broderick BASOM % 0.0 % Critically low 0.2-2.0 [facility] Comment on above: Performed By: #### C AIDEN ####[facility] Kzzobnlwee6038 [place] [address]Dr. Slick Broderick BLAST # Normal [facility] Comment on above: Performed By: #### C AIDEN ####[facility] Wwwucyyyaj5478 [place] [phone]. Slick Broderick BLAST % Normal [facility] Comment on above: Performed By: #### C AIDEN ####[facility] Jjektpjyna6782 [place] [address]Dr. Slick Broderick CORRECTED WBC Normal 4.0-11.0 [facility] Comment on above: Performed By: #### C AIDEN ####[facility] Adieznfosn8859 [place] [address]Dr. Slick Broderick EOS # 0.35 103/ul Normal 0.00-0.70 [facility] Comment on above: Performed By: #### C AIDEN ####[facility] Xhtqgtfgqk[address] [place], [place] [address]Dr. Slick Broderick EOS% 3.0 % Normal 0.9-7.0 [facility] Comment on above: Performed By: #### C AIDEN ####[facility] Xfvfgadjei7334 [place] [address]Dr. Slick Broderick HCT 21.4 % Critically low 36.0-48.0 [facility] Comment on above: Result Comment: TEST REPEATED CRITICAL VALUE VERIFIED Performed By: #### C AIDEN ####[facility] Rezpjkizbv0093 [place] [address]Dr. Slick Broderick HGB 6.6 g/dl Critically low 12.0-16.0 [facility] Comment on above: Result Comment: TEST REPEATED CRITICAL VALUE VERIFIED Performed By: #### C AIDEN ####[facility] Nveemswnxh9470 [place] [address]Dr. Slick Broderick LYMPHM # 0.59 103/ul Critically low 1.20-3.80 [facility] Comment on above: Performed By: #### C AIDEN ####[facility] Eawgjphmnk2089 [place], [place] [address]Vu. Slick Broderick LYMPHM% 5.0 % Critically low 20.5-60.0 The [facility] Comment on above: Performed By: #### C AIDEN ####[facility] Bnyfrnybek1351 [place], [place] [address]Bw. Slick Broderick MCH 33.2 pg Normal 26.7-34.0 The [facility] Comment on above: Performed By: #### C AIDEN ####[facility] Cohhxeskom6248 [place], [place] [address]Kt. Slick Broderick MCHC 30.8 g/dl Normal 29.9-35.2 The [facility] Comment on above: Performed By: #### C AIDEN ####[facility] Dtxlgornpz8562 [place], [place] [address]Og. Slick Broderick MCV 107.5 fL Critically high 81.0-99.0 The [facility] Comment on above: Result Comment: RBCS APPEAR MACROCYTIC ON PERIPHERAL SMEAR Performed By: #### C AIDEN ####[facility] Xyuegcqxqx4537 [place] [phone]. Slick Broderick METAMYELOCYTE # Normal The [facility] Comment on above: Performed By: #### C AIDEN ####[facility] Mupapfccvr9053 [place], [place] [address]Vm. Slick Broderick METAMYELOCYTE % Normal The [facility] Comment on above: Performed By: #### C AIDEN ####[facility] Rlmrhyeuhz3941 [place] [phone]. Slick Broderick MONOM# 0.71 103/ul Normal 0.30-0.80 The [facility] Comment on above: Performed By: #### C AIDEN ####[facility] Gumvveqpru8914 [place] [phone]. Slick Broderick MONOM% 6.0 % Normal 1.7-12.0 The [facility] Comment on above: Performed By: #### C AIDEN ####[facility] Nfnonaycfk3874 [place] [phone]. Slick Broderick MPV 9.2 fL Critically low 9.5-13.5 The [facility] Comment on above: Performed By: #### C AIDEN ####[facility] Ikhflgdjsy1731 [place] [phone]. Slick Broderick MYELOCYTE # Normal [facility] Comment on above: Performed By: #### C AIDEN ####[facility] Mrusbxjtyf2582 [place] [phone]. Slick Broderick MYELOCYTE % Normal The [facility] Comment on above: Performed By: #### C AIDEN ####[facility] Lawrtrprer2890 [place] [phone]. Slick Broderick NRBC Normal The [facility] Comment on above: Performed By: #### C AIDEN ####[facility] Ezwmmezwff5418 [place] [phone]. Slick Broderick PLT 232 103/ul Normal 150-450 [facility] Comment on above: Performed By: #### C AIDEN ####[facility] Usdkrkxpwx1551 [place] [phone]. Slick Broderick RBC 1.99 106/ul Critically low 4.20-5.40 [facility] Comment on above: Performed By: #### C AIDEN ####[facility] Fqjhyrodmg7104 [place] [phone]. Meaganwendie Davie RDW 15.6 % Critically high 11.0-15.0 The [facility] Comment on above: Performed By: #### C AIDEN ####[facility] Rgrtgmobzt6936 [place] [phone]. Slick Broderick SEG # 10.15 103/ul Critically high 1.40-6.50 The [facility] Comment on above: Performed By: #### C AIDEN ####[facility] Iaedyzmqzs6493 [place] [phone]. Slick Broderick SEG % 86.0 % Critically high 43.0-75.0 The [facility] Comment on above: Performed By: #### C AIDEN ####[facility] Kqyvwbalyo[address] [place], [place] [phone]. Slick Broderick WBC 11.8 103/ul Critically high 4.0-11.0 The [facility] Comment on above: Performed By: #### C BCMAN ####[facility] Cfrqjzltgl9617 [place] [phone]. Slick Broderick CRPon 12-12-2021 CRP 10.1 mg/dL Critically high <=1.0 The [facility] Comment on above: Performed By: #### B MANAGEMENT DEPARTMENT CHAIR, CRP, CMP ####[facility] Gkwphflykm1295 [place] [phone]. Slick Broderick CULTURE BLOODon 12-12-2021 Microscopic examination of blood, culture Culture Observations: NO GROWTH AT 5 DAYS. Normal [facility] Comment on above: Performed By: #### B LDCX2 ####[facility] Pshprjtspx7714 [place] [phone]. Slick Broderick Microscopic examination of blood, culture Culture Observations: NO GROWTH AT 5 DAYS. Normal [facility] Comment on above: Performed By: #### B LDCX1 ####[facility] Mfcwrqagns7643 [place] [phone]. Slick Broderick CULTURE URINEon 12-12-2021 CULTURE URINE Culture Observations: NO GROWTH. Normal [facility] Comment on above: Performed By: #### U RCX ####[facility] Aelhxqhufk9341 [place] [phone]. Slick Broderick Covid-19 PCR (CVDTB)on SARS-CoV-2 (COVID-19) RNA DONNIE+probe Ql (Unsp spec) Not detected Normal NOT DETECTED [facility] Comment on above: Result Comment: When [...] for this test is supported by the Right Of Way Appraiser of Health and Human Service's declaration that [...] be used). Performed By: #### C VDTB ####[facility] Jmdyxnzsfw1325 [place] [address]Dr. Meaganwendie Broderick ER URINE PROFILEon 2 Bilirubin Ql (U) Negative Normal NEGATIVE The [facility] Comment on above: Performed By: #### U MICRO, ERUR ####[facility] Qsvearbyon[address] [place], [place] [address]Dr. Slick Davie Clarity (U) CLOUDY Abnormal CLEAR [facility] Comment on above: Performed By: #### U MICRO, ERUR ####[facility] Rdlhrtzykf[address] [place], [place] [address]Dr. Slick Broderick Color (U) LT. YELLOW Normal YELLOW [facility] Comment on above: Performed By: #### U MICRO, ERUR ####[facility] Qyexxlbxba9[address] [place], [place] [address]Dr. Slick CARVAJALAHD A micrscopic examination will be performed if indicated. Normal The [facility] Comment on above: Performed By: #### U MICRO, ERUR ####[facility] Bocolafiiv29[address] [place], [place] [address]Dr. Meaganwendie Davie Glucose Ql (U) Negative Normal NEGATIVE The [facility] Comment on above: Performed By: #### U MICRO, ERUR ####[facility] Mbzsdwwyaq4903 [place] [address]Dr. Slick Broderick Hemoglobin Ql (U) Negative Normal NEGATIVE The [facility] Comment on above: Performed By: #### U MICRO, ERUR ####[facility] Ftadxeocpw[address] [place], [place] [address]Dr. Slick Broderick Ketones Ql (U) Negative Normal NEGATIVE The [facility] Comment on above: Performed By: #### U MICRO, ERUR ####[facility] Pucpmkdxyi6764 [place] [address]Dr. Slick Broderick LEUKOCYTES MODERATE Abnormal NEGATIVE The [facility] Comment on above: Performed By: #### U MICRO, ERUR ####[facility] Tfgcfwmbhw5067 [place] [address]Dr. Slick Broderick Nitrite Ql (U) Negative Normal NEGATIVE The [facility] Comment on above: Performed By: #### U MICRO, ERUR ####[facility] Scmiytmhgj3153 [place] [address]Dr. Slick Broderick pH (U) 6.0 [pH] Normal 5-9 The [facility] Comment on above: Performed By: #### U MICRO, ERUR ####[facility] Gxokiatche98[address] [place], [place] [address]Dr. Slick Broderick SPEC GRAVITY 1.010 Normal 1.005-<=1.0 25 [facility] Comment on above: Performed By: #### U MICRO, ERUR ####[facility] Zrasdprvky7[address] [place], [place] [address]Dr. Slick Broderick UA PROTEIN Negative Normal NEGATIVE/ TRACE The [facility] Comment on above: Performed By: #### U MICRO, ERUR ####[facility] Aiszbgtecn1[address] [place], [place] [address]Dr. Slick Broderick UR MICRO IND INDICATED Normal The [facility] Comment on above: Performed By: #### U MICRO, ERUR ####[facility] Whjpntytto[address] [place], [place] [address]Dr. Slick Broderick Urobilinogen Qn (U) 0.2 {Hiren'U}/dL Normal 0.2 - 1. 0 The [facility] Comment on above: Performed By: #### U MICRO, ERUR ####[facility] Yfhwxpjmha[address] [place], [place] [address]Dr. Slick Brdoerick IRON AND TIBCon 12-12-2021 % SATURATION 7.0 % Normal The [facility] Comment on above: Performed By: #### B 12FOL, FETIBC ####[facility] Zyuaeubpqa[address] [place], [place] [address]Dr. Slick Broderick Iron [Mass/Vol] 18.0 ug/dL Critically low 50.0-170.0 [facility] Comment on above: Performed By: #### B 12FOL, FETIBC ####[facility] Irqctzdpco3010 [place] [phone]. Slick Broderick TIBC DIRECT 257.0 ug/dL Normal 250.0-450.0 [facility] Comment on above: Performed By: #### B 12FOL, FETIBC ####[facility] Vsgpymbvrw9020 [place] [phone]. Slick Broderick LACTATE/LACTIC ACIDon 2021 Lactate [Moles/Vol] 0.7 mmol/L Normal 0.4-1.9 [facility] Comment on above: Performed By: #### L ACT ####[facility] Fhtinjjxfh7718 [place] [address]Dr. Slick Broderick OCC BLD IMMUNO SCREENon OCCULT BLOOD Negative Normal NEGATIVE [facility] Comment on above: Performed By: #### O BSCRN ####[facility] Wutmmoaajd8252 [place] [address]Dr. Slick Broderick PROF 14(COMP METB)on 022 Albumin [Mass/Vol] 2.6 g/dL Critically low 3.4-5.0 [facility] Comment on above: Performed By: #### B MANAGEMENT DEPARTMENT CHAIR, CRP, CMP ####[facility] Ksljaggela1697 [place] [address]Dr. Slick Broderick Albumin/Globulin [Mass ratio] 0.7 {ratio} Normal [facility] Comment on above: Performed By: #### B MANAGEMENT DEPARTMENT CHAIR, CRP, CMP ####[facility] Qwzwyipbwp7953 [place] [address]Dr. Slick Broderick ALP [Catalytic activity/Vol] 105 U/L Normal 46-116 [facility] Comment on above: Performed By: #### B MANAGEMENT DEPARTMENT CHAIR, CRP, CMP ####[facility] Oiupvjchhe8501 [place] [address]Dr. Slick Broderick ALT [Catalytic activity/Vol] 16 U/L Normal 14-59 [facility] Comment on above: Performed By: #### B MANAGEMENT DEPARTMENT CHAIR, CRP, CMP ####[facility] Uzeafcbxle7736 [place] [address]Dr. Slick Broderick Anion gap [Moles/Vol] 11.7 mmol/L Normal [facility] Comment on above: Performed By: #### B MANAGEMENT DEPARTMENT CHAIR, CRP, CMP ####[facility] Zbmlcwqilg5425 [place] [address]Dr. Slick Broderick AST [Catalytic activity/Vol] 11 U/L Critically low 15-37 [facility] Comment on above: Performed By: #### B MANAGEMENT DEPARTMENT CHAIR, CRP, CMP ####[facility] Eagqkhhhii[address] [place], [place] [address]Dr. Slick Broderick Bilirubin [Mass/Vol] 0.3 mg/dL Normal 0.2-1.0 [facility] Comment on above: Performed By: #### B MANAGEMENT DEPARTMENT CHAIR, CRP, CMP ####[facility] Mblkjcyuuz[address] [place], [place] [address]Dr. Slick Broderick Calcium [Mass/Vol] 7.8 mg/dL Critically low 8.5-10.1 [facility] Comment on above: Performed By: #### B MANAGEMENT DEPARTMENT CHAIR, CRP, CMP ####[facility] Bqwgxebcci01[address] [place], [place] [address]Dr. Slick Broderick Chloride [Moles/Vol] 105 mmol/L Normal 98-107 [facility] Comment on above: Performed By: #### B MANAGEMENT DEPARTMENT CHAIR, CRP, CMP ####[facility] Gdtdfdkrwg8[address] [place], [place] [address]Dr. Slick Broderick CO2 [Moles/Vol] 24.2 mmol/L Normal 21.0-32.0 The [facility] Comment on above: Performed By: #### B MANAGEMENT DEPARTMENT CHAIR, CRP, CMP ####[facility] Tidetuzrvf4[address] [place], [place] [address]Dr. Slick Broderick Creatinine [Mass/Vol] 1.96 mg/dL Critically high 0.55-1.02 [facility] Comment on above: Performed By: #### B MANAGEMENT DEPARTMENT CHAIR, CRP, CMP ####[facility] Rzzpejhtht1696 [place] [id number]. Slick Broderick EGFR-AF KENYAN 30 mL/min/1.73m2 Critically low >=60 [facility] Comment on above: Performed By: #### B MANAGEMENT DEPARTMENT CHAIR, CRP, CMP ####[facility] Skdjuotepl0692 [place] [address]Dr. Slick Broderick EGFR-NON AF KENYAN 25 mL/min/1.73m2 Critically low >=60 [facility] Comment on above: Performed By: #### B MANAGEMENT DEPARTMENT CHAIR, CRP, CMP ####[facility] Ympkyuyrij1784 [place] [address]Dr. Slick Broderick Globulin (S) [Mass/Vol] 3.8 g/dL Normal [facility] Comment on above: Performed By: #### B MANAGEMENT DEPARTMENT CHAIR, CRP, CMP ####[facility] Aehfwwlxkg[address] [place], [place] [address]Dr. Slick Broderick Glucose [Mass/Vol] 91 mg/dL Normal 74-106 [facility] Comment on above: Performed By: #### B MANAGEMENT DEPARTMENT CHAIR, CRP, CMP ####[facility] Vbopevmuml1622 [place] [address]Dr. Slick Broderick Potassium [Moles/Vol] 4.9 mmol/L Normal 3.5-5.1 [facility] Comment on above: Performed By: #### B MANAGEMENT DEPARTMENT CHAIR, CRP, CMP ####[facility] Aucghncufx7[address] [place], [place] [address]Dr. Slick Broderick Protein [Mass/Vol] 6.4 g/dL Normal 6.4-8.2 [facility] Comment on above: Performed By: #### B MANAGEMENT DEPARTMENT CHAIR, CRP, CMP ####[facility] Dsbvogfzle5851 [place] [address]Dr. Slick Broderick Sodium [Moles/Vol] 136 mmol/L Normal 136-145 [facility] Comment on above: Performed By: #### B MANAGEMENT DEPARTMENT CHAIR, CRP, CMP ####[facility] Tumxvrqffb1455 [place] [address]Dr. Slick Broderick Urea nitrogen [Mass/Vol] 32.0 mg/dL Critically high 7.0-18.0 The [facility] Comment on above: Performed By: #### B MANAGEMENT DEPARTMENT CHAIR, CRP, CMP ####[facility] Gcnafqnsec6643 [place] [address]Dr. Slick Broderick Urea nitrogen/Creatinine [Mass ratio] 16.3 mg/mg Normal The [facility] Comment on above: Performed By: #### B MANAGEMENT DEPARTMENT CHAIR, CRP, CMP ####[facility] Gisjrlllhb6613 [place] [address]Dr. Slick Broderick TYPE AND SCREENon 12-12-2021 TYPE AND SCREEN Negative Normal The [facility] Comment on above: Performed By: #### T NS ####[facility] Idxsqfcmxa[address] [place], [place] [address]Dr. Slick Broderick URINE MICROSCOPIC ONLYon BACTERIA SMALL Abnormal NONE SEEN The [facility] Comment on above: Performed By: #### U MICRO, ERUR ####[facility] Onqvwfhmyw6[address] [place], [place] [address]Dr. Slick Broderick Bacteria identified Cx Nom (U) INDICATED Normal The [facility] Comment on above: Performed By: #### U MICRO, ERUR ####[facility] Giuuqnaqdr3[address] [place], [place] [address]Dr. Slick Broderick CAST NONE SEEN Normal NONE SEEN The [facility] Comment on above: Performed By: #### U MICRO, ERUR ####[facility] Zdcybhjlja4881 [place] [address]Dr. Slick Broderick Crystals LM Nom (Urine sed) NONE SEEN Normal NONE SEEN The [facility] Comment on above: Performed By: #### U MICRO, ERUR ####[facility] Wsdylsipbe0675 [place] [address]Dr. Slick Broderick Epithelial cells LM Ql (Urine sed) MANY Abnormal NONE SEEN /RARE The [facility] Comment on above: Performed By: #### U MICRO, ERUR ####[facility] Aljueeqodw8877 [place] [address]Dr. Slick Broderick MUCOUS TRACE Abnormal NONE SEEN The [facility] Comment on above: Performed By: #### U MICRO, ERUR ####[facility] Xpbuinvpwf1073 [place] [address]Dr. Slick Broderick RBC 0-2 Normal 0-2 [facility] Comment on above: Performed By: #### U MICRO, ERUR ####[facility] Iiwsphqgte8803 [place] [address]Dr. Slick Broderick WBC 2-5 Abnormal NONE SEEN The [facility] Comment on above: Performed By: #### U MICRO, ERUR ####[facility] Jtgwicmoyg1708 [place] [address]Dr. Slick Davie VIT B12 AND FOLATEon 022 Cobalamin (Vitamin B12) [Mass/Vol] 753.0 pg/mL Normal 193.0-986.0 [facility] Comment on above: Performed By: #### B 12FOL, FETIBC ####[facility] Cdiozkwlyf7181 [place] [address]Dr. Slick Broderick FOLATE 20.20 ng/mL Normal 8.60-58.90 [facility] Comment on above: Performed By: #### B 12FOL, FETIBC ####[facility] Bvvzyludgk[address] [place], [place] [address]Dr. Slick Broderick XR CHEST 1 Von 12-12-2021 XR CHEST 1 V Normal [facility] XR KNEE LT 3Von 12-12-2021 XR KNEE LT 3V Normal [facility] PROF CHEM 8 (BAS METB)on Anion gap [Moles/Vol] 11.4 mmol/L Normal [facility] Comment on above: Performed By: #### B MP ####[facility] Sgfirlsxlt4097 [place] [address]Dr. Slick Broderick Calcium [Mass/Vol] 7.4 mg/dL Critically low 8.5-10.1 [facility] Comment on above: Performed By: #### B MP ####[facility] Thtpzvlhgx2008 [place] [address]Dr. Slick Broderick Chloride [Moles/Vol] 109 mmol/L Critically high 98-107 [facility] Comment on above: Performed By: #### B MP ####[facility] Pdzwraqmzx4603 [place] [id number]. Slick Broderick CO2 [Moles/Vol] 26.6 mmol/L Normal 21.0-32.0 [facility] Comment on above: Performed By: #### B MP ####[facility] Ctcybbgczv7861 [place] [address]Dr. Slick Broderick Creatinine [Mass/Vol] 1.16 mg/dL Critically high 0.55-1.02 [facility] Comment on above: Performed By: #### B MP ####[facility] Jfsiisuwdn5582 [place] [address]Dr. Slick Broderick EGFR-AF KENYAN 56 mL/min/1.73m2 Critically low >=60 [facility] Comment on above: Performed By: #### B MP ####[facility] Ndnyozlqqi6[address] [place], [place] [address]Dr. Meaganwendie Davie EGFR-NON AF KENYAN 46 mL/min/1.73m2 Critically low >=60 [facility] Comment on above: Performed By: #### B MP ####[facility] Zwldjvwpjz8[address] [place], [place] [address]Dr. Slick Broderick Glucose [Mass/Vol] 128 mg/dL Critically high 74-106 [facility] Comment on above: Performed By: #### B MP ####[facility] Spkeswcjpr[address] [place], [place] [address]Dr. Slick Broderick Potassium [Moles/Vol] 5.0 mmol/L Normal 3.5-5.1 [facility] Comment on above: Performed By: #### B MP ####[facility] Gqeizuvcwg63[address] [place], [place] [address]Dr. Meaganwendie Broderick Sodium [Moles/Vol] 142 mmol/L Normal 136-145 [facility] Comment on above: Performed By: #### B MP ####[facility] Xtjvfhcskn[address] [place], [place] [address]Dr. Meaganwendie Davie Urea nitrogen [Mass/Vol] 22.0 mg/dL Critically high 7.0-18.0 [facility] Comment on above: Performed By: #### B MP ####[facility] Dqdjsogbns4630 [place], [place] [address]Pc. Slick Broderick Urea nitrogen/Creatinine [Mass ratio] 19.0 mg/mg Normal The [facility] Comment on above: Performed By: #### B MP ####[facility] Rcvzljmfbp7844 [place], [place] [address]Iq. Slick Broderick XR TIB_FIB LT 2Von 2 XR TIB_FIB LT 2V Normal [facility] CT CSPINE WO CONon 2 CT CSPINE WO CON Normal The [facility] CT HEAD WO CONon 11-29-2021 CT HEAD WO CON Normal The [facility] XR lumbar spine AP/LAT/FLX/E XTon 10-06-2021 XR lumbar spine AP/LAT/FLX/EXT [employer] Other XR lumbar spine AP/LAT/FLX/EXT [facility] [employer] Other XR lumbar spine AP/LAT/FLX/EXT [address] [place] [address] [employer] Other XR lumbar spine AP/LAT/FLX/[place] [address] [employer] Other XR lumbar spine AP/LAT/FLX/EXT XRay Report [employer] Other XR lumbar spine AP/LAT/FLX/EXT Signed [employer] Other XR lumbar spine AP/LAT/FLX/EXT Patient: Linda Nascimento MR#: [id number] [employer] Other XR lumbar spine AP/LAT/FLX/EXT 840 [employer] Other XR lumbar spine AP/LAT/FLX/EXT : 1950 Acct:[id number] [employer] Other XR lumbar spine AP/LAT/FLX/EXT Age/Sex: 71 / F ADM Date: 10/06/21 [employer] Other XR lumbar spine AP/LAT/FLX/EXT Loc: [facility] Room: Type: REG CLI [employer] Other XR lumbar spine AP/LAT/FLX/EXT Attending Dr: Gunnar Fernandez DO [employer] Other XR lumbar spine AP/LAT/FLX/EXT Ordering Provider: Gunnar Fernandez DO [employer] Other XR lumbar spine AP/LAT/FLX/EXT Date of Service: 10/06/21 [employer] Other XR lumbar spine AP/LAT/FLX/EXT XR/XR lumbar spine AP/LAT/FLX/EXT: Lumbar pain [employer] Other XR lumbar spine AP/LAT/FLX/EXT Copies to: Gunnar Fernandez DO [employer] Other XR lumbar spine AP/LAT/FLX/EXT Lumbar spine 10/06/2021. [employer] Other XR lumbar spine AP/LAT/FLX/EXT CLINICAL DATA: Low back pain with radiation to the buttocks. [employer] Other XR lumbar spine AP/LAT/FLX/EXT FINDINGS: 4 standing views of the lumbar spine were obtained including lateral views in the [employer] Other XR lumbar spine AP/LAT/FLX/EXT neutral, flexion, and extension positions. [employer] Other XR lumbar spine AP/LAT/FLX/EXT There is grade 2 spondylolisthesis measuring 17 mm at L4-L5. There is grade 1 spondylolisthesis [employer] Other XR lumbar spine AP/LAT/FLX/EXT measuring 8 mm at the lumbosacral junction. There is mild anterior malalignment of L3 on L4. Overall [employer] Other XR lumbar spine AP/LAT/FLX/EXT vertebral alignment does not significantly change with flexion or extension. There are disc space [employer] Other XR lumbar spine AP/LAT/FLX/EXT narrowing and facet arthritis in the lower lumbar spine. [employer] Other XR lumbar spine AP/LAT/FLX/EXT XR/XR lumbar spine AP/LAT/FLX/EXT [employer] Other XR lumbar spine AP/LAT/FLX/EXT IMPRESSION: Multilevel spondylolisthesis. No instability with flexion or extension. Disc space [employer] Other XR lumbar spine AP/LAT/FLX/EXT Impression dictated by: Marin Haines Jr., M.D.10/06/2021 4:07 PM [employer] Other XR lumbar spine AP/LAT/FLX/EXT Dictation Location: [place] [address] [employer] Other XR lumbar spine AP/LAT/FLX/EXT Transcribed By: ROLF 10/06/21 [facility] [employer] Other XR lumbar spine AP/LAT/FLX/EXT Dictated By: Marin Haines Jr, MD 10/06/21 [facility] [place][note 2] [employer] Other XR lumbar spine AP/LAT/FLX/EXT Signed By: [employer] Other XR lumbar spine AP/LAT/FLX/EXT 10/06/21 [facility] [employer] Other BASIC METABOLIC PANELon 11-1 Calcium [Mass/Vol] 8.2 mg/dL Low 8.6-10.3 [facility] Comment on above: Order Comment: No: D o not add to previous draw Performed By: #### 0 0071 ####[facility] [place] [address], [facility] Chloride [Moles/Vol] 106 mmol/L Normal 98-107 [facility] Comment on above: Order Comment: No: D o not add to previous draw Performed By: #### 0 0071 ####[facility] [place] [address], [facility] CO2 [Moles/Vol] 23 mmol/L Normal 21-31 [facility] Comment on above: Order Comment: No: D o not add to previous draw Performed By: #### 0 0071 ####[facility] [place] [address], [place] Creatinine [Mass/Vol] 0.98 mg/dL Normal 0.60-1.20 [facility] Comment on above: Order Comment: No: D o not add to previous draw Performed By: #### 0 0071 ####[facility] [address], [facility] eGFR- non- 56 ml/min/1.73sq m Abnormal >60 The [facility] Comment on above: Order Comment: No: D o not add to previous draw Result Comment: Calc ulation may not be valid for patients over 70 years Performed By: #### 0 0071 ####[facility] [address], [facility] GFR/1.73 sq M.predicted among blacks MDRD (S/P/Bld) [Vol rate/Area] mL/min/{1.73_m2} Normal >60 [facility] Comment on above: Order Comment: No: D o not add to previous draw Result Comment: Calc ulation may not be valid for patients over 70 years Performed By: #### 0 0071 ####[facility] [place] [address], [place] Glucose [Mass/Vol] 104 mg/dL High 70-100 [facility] Comment on above: Order Comment: No: D o not add to previous draw Performed By: #### 0 0071 ####[facility] [place] [address], [place] Potassium [Moles/Vol] 4.5 mmol/L Normal 3.5-5.1 [facility] Comment on above: Order Comment: No: D o not add to previous draw Performed By: #### 0 0071 ####[facility] [place] [address], [facility] Sodium [Moles/Vol] 136 mmol/L Normal 136-145 [facility] Comment on above: Order Comment: No: D o not add to previous draw Performed By: #### 0 0071 ####[facility] [place] [address], [facility] Urea nitrogen [Mass/Vol] 14 mg/dL Normal 7-25 [facility] Comment on above: Order Comment: No: D o not add to previous draw Performed By: #### 0 0071 ####[facility] [place] [address], [facility] HEMATOCRITon 04-28-2021 Hematocrit (Bld) [Volume fraction] 27.6 % Low 36.0-45.0 [facility] Comment on above: Order Comment: No: D o not add to previous draw Performed By: #### 5 7307, 14251 #### [facility] [address] [address], [facility] HEMOGLOBINon 04-28-2021 Hemoglobin (Bld) [Mass/Vol] 8.6 g/dL Low 12.0-15.0 [facility] Comment on above: Order Comment: No: D o not add to previous draw Performed By: #### 5 7307, 27054 #### [facility] [address] [place] [address], [facility] CHEST AND LATERALon 04-27-20 21 CHEST AND LATERAL [facility] Department of Radiology [address] [place] [phone] Patient Name: LINDA NASCIMENTO : 1950 Sex: F Age: Race: White Pt. Location: [address] [place] [address] Patient Status: I Ordered Date: 04/27/2021 7:00:00 [...] leads. Electronically signed: Dwight Davila. Transcribed by: [email or web address], User Resident: Electronically Signed by: DWIGHT DAVILA @ 04/27/2021 10:35 AM Normal [facility] Comment on above: Order Comment: No: D o not add to previous draw BASIC METABOLIC PANELon 11-1 5-2021 Calcium [Mass/Vol] 8.7 mg/dL Normal 8.6-10.3 [facility] Comment on above: Order Comment: No: D o not add to previous draw Performed By: #### 0 0071 ####[facility] [place] [address], [facility] Chloride [Moles/Vol] 103 mmol/L Normal 98-107 [facility] Comment on above: Order Comment: No: D o not add to previous draw Performed By: #### 0 0071 ####[facility] [place] [address], [facility] CO2 [Moles/Vol] 24 mmol/L Normal 21-31 The [facility] Comment on above: Order Comment: No: D o not add to previous draw Performed By: #### 0 0071 ####[facility] [place] [address], [facility] Creatinine [Mass/Vol] 1.05 mg/dL Normal 0.60-1.20 [facility] Comment on above: Order Comment: No: D o not add to previous draw Performed By: #### 0 0071 ####[facility] [place] [address], [facility] eGFR- non- 51 ml/min/1.73sq m Abnormal >60 The [facility] Comment on above: Order Comment: No: D o not add to previous draw Result Comment: Calc ulation may not be valid for patients over 70 years Performed By: #### 0 0071 ####[facility] [place] [address], [facility] GFR/1.73 sq M.predicted among blacks MDRD (S/P/Bld) [Vol rate/Area] mL/min/{1.73_m2} Normal >60 [facility] Comment on above: Order Comment: No: D o not add to previous draw Result Comment: Calc ulation may not be valid for patients over 70 years Performed By: #### 0 0071 ####[facility] [place] [address], [facility] Glucose [Mass/Vol] 107 mg/dL High 70-100 [facility] Comment on above: Order Comment: No: D o not add to previous draw Performed By: #### 0 0071 ####[facility] [place] [address], [facility] Potassium [Moles/Vol] 4.6 mmol/L Normal 3.5-5.1 [facility] Comment on above: Order Comment: No: D o not add to previous draw Performed By: #### 0 0071 ####[facility] [place] [address], [facility] Sodium [Moles/Vol] 134 mmol/L Low 136-145 [facility] Comment on above: Order Comment: No: D o not add to previous draw Performed By: #### 0 0071 ####[facility] [facility] Urea nitrogen [Mass/Vol] 21 mg/dL Normal 7-25 [facility] Comment on above: Order Comment: No: D o not add to previous draw Performed By: #### 0 0071 ####[facility] [place] [address], [facility] CBC W/DIFFon 04-26-2021 ABS IMM GRANS 0.0 10*3/uL Normal 0.0-0.2 The [facility] Comment on above: Order Comment: No: D o not add to previous draw Performed By: #### 5 0103 #### [facility] [address] [place] [address], [facility] ABS NEUTROPHILS 4.8 10*3/uL Normal 1.6-7.6 The [facility] Comment on above: Order Comment: No: D o not add to previous draw Performed By: #### 5 0103 #### [facility] [address] [place] [address], [facility] Basophils (Bld) [#/Vol] 0.0 10*3/uL Normal 0.0-0.2 [facility] Comment on above: Order Comment: No: D o not add to previous draw Performed By: #### 5 0103 #### [facility] [address] [place] [address], [facility] Basophils/100 WBC (Bld) 0.6 % Normal 0.0-1.0 T he [facility] Comment on above: Order Comment: No: D o not add to previous draw Performed By: #### 5 0103 #### [facility] [address] [place] [address], [facility] Eosinophils (Bld) [#/Vol] 0.4 10*3/uL Normal 0.0-0.5 [facility] Comment on above: Order Comment: No: D o not add to previous draw Performed By: #### 5 0103 #### [facility] [address] [place] [address], [facility] Eosinophils/100 WBC (Bld) 6.0 % Normal 0.0-6.0 [facility] Comment on above: Order Comment: No: D o not add to previous draw Performed By: #### 5 0103 #### [facility] [address] [place] [address], [facility] Erythrocyte distribution width (RBC) [Ratio] 13.1 % Normal 11.5-15.0 [facility] Comment on above: Order Comment: No: D o not add to previous draw Performed By: #### 5 0103 #### [facility] [address] [place] [id number], [facility] Hematocrit (Bld) [Volume fraction] 27.8 % Low 36.0-45.0 [facility] Comment on above: Order Comment: No: D o not add to previous draw Performed By: #### 5 0103 #### [facility] [address] [place] [address], [facility] Hemoglobin (Bld) [Mass/Vol] 9.0 g/dL Low 12.0-15.0 [facility] Comment on above: Order Comment: No: D o not add to previous draw Performed By: #### 5 0103 #### [facility] [address] [place] [address], [facility] IMMATURE GRANS 0.3 % Normal 0.0-1.0 The [facility] Comment on above: Order Comment: No: D o not add to previous draw Performed By: #### 5 0103 #### [facility] [address] [place] [address], [facility] Lymphocytes (Bld) [#/Vol] 0.7 10*3/uL Low 1.2-4.0 [facility] Comment on above: Order Comment: No: D o not add to previous draw Performed By: #### 5 0103 #### [facility] [address] [place] [address], [facility] Lymphocytes/100 WBC (Bld) 9.8 % Low 20.0-45.0 [facility] Comment on above: Order Comment: No: D o not add to previous draw Performed By: #### 5 0103 #### [facility] [address] [place] [address], [facility] MCH (RBC) [Entitic mass] 33.5 pg High 27.0-33.0 [facility] Comment on above: Order Comment: No: D o not add to previous draw Performed By: #### 5 0103 #### [facility] [address] [place] [address], [facility] MCHC (RBC) [Mass/Vol] 32.4 g/dL Normal 32.0-35.0 [facility] Comment on above: Order Comment: No: D o not add to previous draw Performed By: #### 5 0103 #### [facility] [address] [place] [address], [facility] MCV (RBC) [Entitic vol] 103.3 fL High 82.0-98.0 T he [facility] Comment on above: Order Comment: No: D o not add to previous draw Performed By: #### 5 0103 #### [facility] [address] [place] [address], [facility] Monocytes (Bld) [#/Vol] 0.7 10*3/uL Normal 0.1-1.0 [facility] Comment on above: Order Comment: No: D o not add to previous draw Performed By: #### 5 0103 #### [facility] [address] [place] [address], [facility] MONOS 10.4 % Normal 5.0-12.0 [facility] Comment on above: Order Comment: No: D o not add to previous draw Performed By: #### 5 0103 #### [facility] [address] [place] [address], [facility] Neutrophils/100 WBC (Bld) 72.9 % High 40.0-72.0 [facility] Comment on above: Order Comment: No: D o not add to previous draw Performed By: #### 5 0103 #### [facility] [address] [place] [address], [facility] Nucleated RBC/100 WBC (Bld) [Ratio] 0 % Normal 0-0 [facility] Comment on above: Order Comment: No: D o not add to previous draw Performed By: #### 5 0103 #### [facility] [address] [facility] [place] [address], [facility] PLAT CNT 213 10*3/uL Normal 150-400 The [facility] Comment on above: Order Comment: No: D o not add to previous draw Performed By: #### 5 0103 #### [facility] [address] [place] [address], [facility] RBC (Bld) [#/Vol] 2.69 10*6/uL Low 3.80-5.00 The [facility] Comment on above: Order Comment: No: D o not add to previous draw Performed By: #### 5 0103 #### [facility] [address] [facility] [place] [address], [facility] WBC (Bld) [#/Vol] 6.62 10*3/uL Normal 4.00-10.60 The [facility] Comment on above: Order Comment: No: D o not add to previous draw Performed By: #### 5 0103 #### [facility] [address] [facility] [place], [place] [id number] [place] [address] Cardiovascular Lab Reporton 04-26-2021 Cardiovascular Lab Report [facility] Patient Name: [facility] L MR #: [id number] Department of Physician: Enoch Frankel MD Medicine Service Date: 04/26/2021 Division of Birthdate: 1950 Cardiology Room #: [id number] Adult Cardiovascular Services [place] [address] Cardiovascular Laboratory Report PACEMAKER IMPLANT PROCEDURE NOTE [...] using modified seldinger technique using a 5 Wolof micro-puncture needle on two occasions and 0.35 wires were placed. Local infiltration of 1% Lidocaine was performed, and an incision was created in the left upper chest. Dissection was then performed using cautery down to the fascial plane above the muscle and a small pocket was created for the device. 6 Wolof Safesheaths were placed over the wire. An active fixation [employer] pacing lead was then delivered through the 6Fsheath to the right ventricle. After confirmation of lead position on orthogonal views (GONZALES and PRYDEINIG) to confirm septal position, the screw was activated, and the lead was placed in the right ventricular mid cavity towards the septum. After confirmation of good sensing parameters, injury pattern and pacing thresholds, 10V pacing was done and no diaphragmatic stimulation was noted. It was then secured in the pocket using three 1-0 Silk sutures. Then an active fixation [employer] lead was delivered through the 6Fsheath to the right atrial appendage. After confirmation of lead position on orthogonal views (GONZALES and PRYDEINIG), the screw was activated. RA lead was [...] Device info: Biotronik Edora Model# 8DRT Serial# [id number] RA lead: Model# [employer] Solia S53 Serial# [id number] Sensin.9mV Threshold: 1.1V@0.5ms Impedance: 429 Ohms RV lead: Model (more content not included)... Normal [facility] BASIC METABOLIC PANELon 11- Calcium [Mass/Vol] 8.6 mg/dL Normal 8.6-10.3 [facility] Comment on above: Order Comment: No: D o not add to previous draw Performed By: #### 0 0071 ####[facility] [place] [address], [facility] Chloride [Moles/Vol] 101 mmol/L Normal 98-107 [facility] Comment on above: Order Comment: No: D o not add to previous draw Performed By: #### 0 0071 ####[facility] [place] [address], [facility] CO2 [Moles/Vol] 24 mmol/L Normal 21-31 The [facility] Comment on above: Order Comment: No: D o not add to previous draw Performed By: #### 0 0071 ####[facility] [place] [address], [facility] Creatinine [Mass/Vol] 1.36 mg/dL High 0.60-1.20 [facility] Comment on above: Order Comment: No: D o not add to previous draw Performed By: #### 0 0071 ####[facility] [place] [address], [facility] eGFR- 46 ml/min/1.73sq m Abnormal >60 [facility] Comment on above: Order Comment: No: D o not add to previous draw Result Comment: Calc ulation may not be valid for patients over 70 years Performed By: #### 0 0071 ####[place] [id number] [place] [address], [facility] eGFR- non- 39 ml/min/1.73sq m Abnormal >60 [facility] Comment on above: Order Comment: No: D o not add to previous draw Result Comment: Calc ulation may not be valid for patients over 70 years Performed By: #### 0 0071 ####[facility] [place] [address], [facility] Glucose [Mass/Vol] 98 mg/dL Normal 70-100 [facility] Comment on above: Order Comment: No: D o not add to previous draw Performed By: #### 0 0071 ####[facility] [place] [address], [facility] Potassium [Moles/Vol] 4.4 mmol/L Normal 3.5-5.1 [facility] Comment on above: Order Comment: No: D o not add to previous draw Performed By: #### 0 0071 ####[facility] [place] [address], [facility] Sodium [Moles/Vol] 132 mmol/L Low 136-145 [facility] Comment on above: Order Comment: No: D o not add to previous draw Performed By: #### 0 0071 ####[facility] [place] [address], [place] Urea nitrogen [Mass/Vol] 22 mg/dL Normal 7-25 [facility] Comment on above: Order Comment: No: D o not add to previous draw Performed By: #### 0 0071 ####[facility] [place] [address], [place] HEMATOCRITon 04-25-2021 Hematocrit (Bld) [Volume fraction] 28.3 % Low 36.0-45.0 [facility] Comment on above: Order Comment: No: D o not add to previous draw Performed By: #### 5 7307, 61902 #### [facility] [address] [place] [id number], [facility] HEMOGLOBINon 04-25-2021 Hemoglobin (Bld) [Mass/Vol] 9.0 g/dL Low 12.0-15.0 [facility] Comment on above: Order Comment: No: D o not add to previous draw Performed By: #### 9 2097, 01014 #### [facility] [address] [place] [address], [facility] BASIC METABOLIC PANELon 04-12 Calcium [Mass/Vol] 8.8 mg/dL Normal 8.6-10.3 [facility] Comment on above: Order Comment: No: D o not add to previous draw Performed By: #### 1 69, 79238 ####[facility] [place] [address], [place] Chloride [Moles/Vol] 101 mmol/L Normal 98-107 [facility] Comment on above: Order Comment: No: D o not add to previous draw Performed By: #### 1 69, 70441 ####[facility] [place] [address], [place] CO2 [Moles/Vol] 26 mmol/L Normal 21-31 [facility] Comment on above: Order Comment: No: D o not add to previous draw Performed By: #### 1 69, 34550 ####[facility] [place] [address], [facility] Creatinine [Mass/Vol] 1.17 mg/dL Normal 0.60-1.20 [facility] Comment on above: Order Comment: No: D o not add to previous draw Performed By: #### 1 69, 27515 ####[facility] [place] [address], [facility] eGFR- 55 ml/min/1.73sq m Abnormal >60 [facility] Comment on above: Order Comment: No: D o not add to previous draw Result Comment: Calc ulation may not be valid for patients over 70 years Performed By: #### 1 69, 78719 ####[facility] [place] [address], [facility] eGFR- non- 45 ml/min/1.73sq m Abnormal >60 [facility] Comment on above: Order Comment: No: D o not add to previous draw Result Comment: Calc ulation may not be valid for patients over 70 years Performed By: #### 1 69, 05610 ####[facility] [place] [address], [facility] Glucose [Mass/Vol] 102 mg/dL High 70-100 [facility] Comment on above: Order Comment: No: D o not add to previous draw Performed By: #### 1 69, 58170 ####[facility] [place] [address], [facility] Potassium [Moles/Vol] 4.5 mmol/L Normal 3.5-5.1 [facility] Comment on above: Order Comment: No: D o not add to previous draw Performed By: #### 1 69, 69410 ####[facility] [place] [address], [facility] Sodium [Moles/Vol] 133 mmol/L Low 136-145 [facility] Comment on above: Order Comment: No: D o not add to previous draw Performed By: #### 1 0070, 63540 ####[facility] [place] [address], [facility] Urea nitrogen [Mass/Vol] 20 mg/dL Normal 7-25 [facility] Comment on above: Order Comment: No: D o not add to previous draw Performed By: #### 1 0, 22295 ####[facility] [place] [address], [facility] HEMOGLOBINon 04-24-2021 Hemoglobin (Bld) [Mass/Vol] 10.0 g/dL Low 12.0-15.0 [facility] Comment on above: Order Comment: Yes: Add to Previous draw if able NEEDS DRAWN. NO LAV TUBE FROM AM LABS Performed By: #### 9 2089 #### [facility] [address] [place] [address], [facility] MAGNESIUM BLOODon 04-24-2021 Magnesium [Mass/Vol] 2.1 mg/dL Normal 1.9-2.7 [facility] Comment on above: Order Comment: No: D o not add to previous draw Performed By: #### 1 0, 58508 ####[facility] [place] [address], [facility] BASIC METABOLIC PANELon 04-12 Calcium [Mass/Vol] 8.4 mg/dL Low 8.6-10.3 [facility] Comment on above: Order Comment: Unkno wn Performed By: #### 1 0070, 32384, 94149 ####[facility] [place] [address], [facility] Chloride [Moles/Vol] 100 mmol/L Normal 98-107 [facility] Comment on above: Order Comment: Unkno wn Performed By: #### 1 0070, 95082, 11334 ####[facility] [place] [address], [facility] CO2 [Moles/Vol] 25 mmol/L Normal 21-31 [facility] Comment on above: Order Comment: Unkno wn Performed By: #### 1 0070, 61232, 60685 ####[facility] [place] [address], [facility] Creatinine [Mass/Vol] 1.30 mg/dL High 0.60-1.20 [facility] Comment on above: Order Comment: Unkno wn Performed By: #### 1 0, 17862, 29475 ####[facility] [place] [address], [facility] eGFR- 49 ml/min/1.73sq m Abnormal >60 [facility] Comment on above: Order Comment: Unkno wn Result Comment: Calc ulation may not be valid for patients over 70 years Performed By: #### 1 0, 14575, 65480 ####[facility] [place] [address], [facility] eGFR- non- 40 ml/min/1.73sq m Abnormal >60 [facility] Comment on above: Order Comment: Unkno wn Result Comment: Calc ulation may not be valid for patients over 70 years Performed By: #### 1 0070, 18642, 28660 ####[facility] [place] [address], [place] Glucose [Mass/Vol] 93 mg/dL Normal 70-100 [facility] Comment on above: Order Comment: Unkno wn Performed By: #### 1 0070, 25680, 42064 ####[facility] [place] [address], [place] Potassium [Moles/Vol] 4.1 mmol/L Normal 3.5-5.1 [facility] Comment on above: Order Comment: Unkno wn Performed By: #### 1 0, 29564, 43440 ####[facility] [place] [address], [facility] Sodium [Moles/Vol] 133 mmol/L Low 136-145 [facility] Comment on above: Order Comment: Unkno wn Performed By: #### 1 0, 28313, 55478 ####[facility] [place], [place] [address], [facility] Urea nitrogen [Mass/Vol] 20 mg/dL Normal 7-25 The [facility] Comment on above: Order Comment: Unkno wn Performed By: #### 1 0, 66565, 48173 ####[facility] [place] [address], [facility] CBC W/DIFFon 04-23-2021 ABS IMM GRANS 0.1 10*3/uL Normal 0.0-0.2 The [facility] Comment on above: Order Comment: Unkno wn Performed By: #### 5 0103 #### [facility] [address] [place] [address], [facility] ABS NEUTROPHILS 7.8 10*3/uL High 1.6-7.6 The [facility] Comment on above: Order Comment: Unkno wn Performed By: #### 5 0103 #### [facility] [address] [place] [address], [facility] Basophils (Bld) [#/Vol] 0.1 10*3/uL Normal 0.0-0.2 The [facility] Comment on above: Order Comment: Unkno wn Performed By: #### 5 3 #### [facility] [address] [place] [address], [facility] Basophils/100 WBC (Bld) 0.5 % Normal 0.0-1.0 T [facility] Comment on above: Order Comment: Unkno wn Performed By: #### 5 0103 #### [facility] [address] [place] [address], [facility] Eosinophils (Bld) [#/Vol] 0.4 10*3/uL Normal 0.0-0.5 The [facility] Comment on above: Order Comment: Unkno wn Performed By: #### 5 0103 #### [facility] [address] [place] [address], [facility] Eosinophils/100 WBC (Bld) 3.5 % Normal 0.0-6.0 The [facility] Comment on above: Order Comment: Unkno wn Performed By: #### 5 0103 #### [facility] [address] [place] [address], [facility] Erythrocyte distribution width (RBC) [Ratio] 13.2 % Normal 11.5-15.0 The [facility] Comment on above: Order Comment: Unkno wn Performed By: #### 5 0103 #### [facility] [address] [place] [address], [facility] Hematocrit (Bld) [Volume fraction] 29.2 % Low 36.0-45.0 The [facility] Comment on above: Order Comment: Unkno wn Performed By: #### 5 0103 #### [facility] [address] [place] [address], [facility] Hemoglobin (Bld) [Mass/Vol] 9.3 g/dL Low 12.0-15.0 The [facility] Comment on above: Order Comment: Unkno wn Performed By: #### 5 0103 #### [facility] [address] [place] [address], [facility] IMMATURE GRANS 0.6 % Normal 0.0-1.0 The [facility] Comment on above: Order Comment: Unkno wn Performed By: #### 5 3 #### [facility] [address] Lymphocytes (Bld) [#/Vol] 0.7 10*3/uL Low 1.2-4.0 The [facility] Comment on above: Order Comment: Unkno wn Performed By: #### 5 0103 #### [facility] [address] [place] [address], [facility] Lymphocytes/100 WBC (Bld) 6.8 % Low 20.0-45.0 The [facility] Comment on above: Order Comment: Unkno wn Performed By: #### 5 0103 #### [facility] [address] [place] [address], [facility] MCH (RBC) [Entitic mass] 33.5 pg High 27.0-33.0 The [facility] Comment on above: Order Comment: Unkno wn Performed By: #### 5 3 #### [facility] [address] [place] [address], [facility] MCHC (RBC) [Mass/Vol] 31.8 g/dL Low 32.0-35.0 The [facility] Comment on above: Order Comment: Unkno wn Performed By: #### 5 3 #### [facility] [address] [place] [address], [facility] MCV (RBC) [Entitic vol] 105.0 fL High 82.0-98.0 T he [facility] Comment on above: Order Comment: Unkno wn Performed By: #### 5 0103 #### [facility] [address] [place] [address], [facility] Monocytes (Bld) [#/Vol] 1.0 10*3/uL Normal 0.1-1.0 The [facility] Comment on above: Order Comment: Unkno wn Performed By: #### 5 3 #### [facility] [address] [place] [address], [facility] MONOS 10.0 % Normal 5.0-12.0 [facility] Comment on above: Order Comment: Unkno wn Performed By: #### 5 0103 #### [facility] [address] [place] [address], [facility] Neutrophils/100 WBC (Bld) 78.6 % High 40.0-72.0 The [facility] Comment on above: Order Comment: Unkno wn Performed By: #### 5 0103 #### [facility] [address] [place] [address], [facility] Nucleated RBC/100 WBC (Bld) [Ratio] 0 % Normal 0-0 The [facility] Comment on above: Order Comment: Unkno wn Performed By: #### 5 0103 #### [facility] [address] [place] [address], [facility] PLAT CNT 227 10*3/uL Normal 150-400 The [facility] Comment on above: Order Comment: Unkno wn Performed By: #### 5 0103 #### [facility] [address] [place] [address], [facility] RBC (Bld) [#/Vol] 2.78 10*6/uL Low 3.80-5.00 The [facility] Comment on above: Order Comment: Unkno wn Performed By: #### 5 3 #### [facility] [address] [place] [address], [facility] WBC (Bld) [#/Vol] 9.87 10*3/uL Normal 4.00-10.60 The [facility] Comment on above: Order Comment: Unkno wn Performed By: #### 5 3 #### [facility] [address] [place] [address], [facility] MAGNESIUM BLOODon 04-23-2021 Magnesium [Mass/Vol] 2.1 mg/dL Normal 1.9-2.7 The [facility] Comment on above: Order Comment: Unkno wn Performed By: #### 1 0070, 34874, 23616 ####[facility] [place] [address], [facility] PHOSPHORUS BLOODon Phosphate [Mass/Vol] 2.8 mg/dL Normal 2.5-5.0 [facility] Comment on above: Order Comment: Unkno wn Performed By: #### 1 0070, 40905, 15662 ####[facility] [place] [address], [facility] APTTon 04-22-2021 aPTT Coag (Bld) [Time] 27.6 s Normal 25.0-35.0 Th e [facility] Comment on [...] THIS PURPOSE. Performed By: #### 5 7307, 98914 #### [facility] [address] [facility] [place] [address], [facility] BASIC METABOLIC PANELon 04-12 Calcium [Mass/Vol] 8.8 mg/dL Normal 8.6-10.3 [facility] Comment on above: Order Comment: No: D o not add to previous draw Performed By: #### 4 1000, 69985, 21219, 99904 ####[facility] [facility] [place] [address], [facility] Chloride [Moles/Vol] 99 mmol/L Normal 98-107 The [facility] Comment on above: Order Comment: No: D o not add to previous draw Performed By: #### 4 1000, 01384, 52094, 84888 ####[facility] [place] [address], [facility] CO2 [Moles/Vol] 27 mmol/L Normal 21-31 The [facility] Comment on above: Order Comment: No: D o not add to previous draw Performed By: #### 4 1000, 08641, 01127, 85850 ####[facility] [place] [address], [facility] Creatinine [Mass/Vol] 1.39 mg/dL High 0.60-1.20 [facility] Comment on above: Order Comment: No: D o not add to previous draw Performed By: #### 4 1000, 47894, 09145, 04331 ####[facility] [facility] eGFR- 45 ml/min/1.73sq m Abnormal >60 The [facility] Comment on above: Order Comment: No: D o not add to previous draw Result Comment: Calc ulation may not be valid for patients over 70 years Performed By: #### 4 1000, 14954, 42540, 86345 ####[facility] [facility] eGFR- non- 37 ml/min/1.73sq m Abnormal >60 The [facility] Comment on above: Order Comment: No: D o not add to previous draw Result Comment: Calc ulation may not be valid for patients over 70 years Performed By: #### 4 1000, 30097, 07120, 22824 ####[facility] [place] [address], [facility] Glucose [Mass/Vol] 91 mg/dL Normal 70-100 The [facility] Comment on above: Order Comment: No: D o not add to previous draw Performed By: #### 4 1000, 83085, 87524, 74961 ####[facility] [place] [address], [facility] Potassium [Moles/Vol] 4.4 mmol/L Normal 3.5-5.1 [facility] Comment on above: Order Comment: No: D o not add to previous draw Performed By: #### 4 1000, 14833, 52294, 04994 ####[facility] [facility] Sodium [Moles/Vol] 133 mmol/L Low 136-145 [facility] Comment on above: Order Comment: No: D o not add to previous draw Performed By: #### 4 1000, 42774, 82544, 67973 ####[facility] [facility] Urea nitrogen [Mass/Vol] 24 mg/dL Normal 7-25 The [facility] Comment on above: Order Comment: No: D o not add to previous draw Performed By: #### 4 1000, 15335, 65747, 28429 ####[facility] CBC W/DIFFon 04-22-2021 ABS IMM GRANS 0.0 10*3/uL Normal 0.0-0.2 The [facility] Comment on above: Performed By: #### 5 0103 #### [facility] [address] [facility] ABS NEUTROPHILS 5.8 10*3/uL Normal 1.6-7.6 The [facility] Comment on above: Performed By: #### 5 0103 #### [facility] [address] [place] [address], [facility] Basophils (Bld) [#/Vol] 0.1 10*3/uL Normal 0.0-0.2 [facility] Comment on above: Performed By: #### 5 0103 #### [facility] [address] [place] [address], [facility] Basophils/100 WBC (Bld) 0.6 % Normal 0.0-1.0 T he [facility] Comment on above: Performed By: #### 5 0103 #### [facility] [address] [facility]. [address] Eosinophils (Bld) [#/Vol] 0.2 10*3/uL Normal 0.0-0.5 The [facility] Comment on above: Performed By: #### 5 0103 #### [facility] [address] [place] [address], [facility] Eosinophils/100 WBC (Bld) 2.7 % Normal 0.0-6.0 The [facility] Comment on above: Performed By: #### 5 0103 #### [facility] [address] Erythrocyte distribution width (RBC) [Ratio] 13.0 % Normal 11.5-15.0 [facility] Comment on above: Performed By: #### 5 0103 #### [facility] [address] [facility] Hematocrit (Bld) [Volume fraction] 29.2 % Low 36.0-45.0 The [facility] Comment on above: Performed By: #### 5 0103 #### [facility] [address] [facility] [facility] Hemoglobin (Bld) [Mass/Vol] 9.6 g/dL Low 12.0-15.0 The [facility] Comment on above: Performed By: #### 5 0103 #### [facility] [address] [place] [address], [facility] IMMATURE GRANS 0.5 % Normal 0.0-1.0 [facility] Comment on above: Performed By: #### 5 0103 #### [facility] [address] [place] [address], [facility] Lymphocytes (Bld) [#/Vol] 1.1 10*3/uL Low 1.2-4.0 The [facility] Comment on above: Performed By: #### 5 0103 #### [facility] [address] Lymphocytes/100 WBC (Bld) 13.4 % Low 20.0-45.0 The [facility] Comment on above: Performed By: #### 5 0103 #### [facility] [address] [place] [address], [facility] MCH (RBC) [Entitic mass] 33.1 pg High 27.0-33.0 The [facility] Comment on above: Performed By: #### 5 0103 #### [facility] [address] [facility] MCHC (RBC) [Mass/Vol] 32.9 g/dL Normal 32.0-35.0 The [facility] Comment on above: Performed By: #### 5 0103 #### [facility] [address] [place] [address], [facility] MCV (RBC) [Entitic vol] 100.7 fL High 82.0-98.0 T he [facility] Comment on above: Performed By: #### 5 0103 #### [facility] [address] [place] [address], [facility] Monocytes (Bld) [#/Vol] 0.7 10*3/uL Normal 0.1-1.0 The [facility] Comment on above: Performed By: #### 5 0103 #### [facility] [address] [facility]. [address] MONOS 9.1 % Normal 5.0-12.0 The [facility] Comment on above: Performed By: #### 5 0103 #### [facility] [address] [place] [address], [facility] Neutrophils/100 WBC (Bld) 73.7 % High 40.0-72.0 The [facility] Comment on above: Performed By: #### 5 3 #### [facility] [address] [place] [address], [facility] Nucleated RBC/100 WBC (Bld) [Ratio] 0 % Normal 0-0 [facility] Comment on above: Performed By: #### 5 0103 #### [facility] [address] [place] [address], [facility] PLAT CNT 234 10*3/uL Normal 150-400 The [facility] Comment on above: Performed By: #### 5 0103 #### [facility] [address] [facility] [place] [address], [facility] RBC (Bld) [#/Vol] 2.90 10*6/uL Low 3.80-5.00 The [facility] Comment on above: Performed By: #### 5 0103 #### [facility] [address] [facility] [address], [facility] WBC (Bld) [#/Vol] 7.81 10*3/uL Normal 4.00-10.60 The [facility] Comment on above: Performed By: #### 5 0103 #### [facility] [address] [place] [address], [facility] FERRITINon 04-22-2021 Ferritin [Mass/Vol] 74 ng/mL Normal 11-307 The [facility] Comment on above: Order Comment: No: D o not add to previous draw Performed By: #### 8 4044, 29013, 43724, 71379, 21261, 86087 ####[facility] FOLATE SERUMon 04-22-2021 SERUM FOLATE 29.00 ng/mL Normal 6.60-1000.0 0 The [facility] Comment on above: Order Comment: No: D o not add to previous draw Result Comment: Norm al range reflects World Health [employer] International Standard Performed By: #### 8 4044, 87598, 25035, 25172, 31382, 07044 ####[facility] [address] HAPTOGLOBINon 04-22-2021 HAPTOGLOBIN 302 mg/dL High 26-164 The [facility] Comment on above: Order Comment: No: D o not add to previous draw Performed By: #### 3 0103 #### [address] [place] [address], [facility] KNEE LEFT 1 OR 2 VWSon 04-22 KNEE LEFT 1 OR 2 VWS [facility] Department of Radiology [address] [place] [address] [place] [address] Patient Name: LINDA NASCIMENTO : 1950 Sex: F Age: Race: White Pt. Location: [id number] Patient Status: I Ordered Date: 04/22/2021 2:30:00 AM Completed Date: 04/22/2021 02:52 AM Requesting Provider: GUNNAR CHRISTIANSON Attending Provider: ORBERTA VELA Report Copy To: Signs & Symptoms: [...] report. Electronically signed: Boris Jara. Transcribed by: [email or web address], User Resident: NITHIN GARAY Electronically Signed by: BORIS JARA @ 04/22/2021 03:09 AM I personally read this/these film(s) with this resident Normal The [facility] Comment on above: Order Comment: No: D o not add to previous draw KNEE RIGHT 1 OR 2 [facility] 04-12 KNEE RIGHT 1 OR 2 [facility] Department of Radiology [address] [place] [id number] Patient Name: LINDA NASCIMENTO : 1950 Sex: F Age: Race: White Pt. Location: [id number] Patient Status: I Ordered Date: 04/22/2021 2:30:00 AM Completed Date: 04/22/2021 02:52 AM Requesting Provider: GUNNAR CHRISTIANSON Attending Provider: ROBERTA VELA Report Copy To: Signs & Symptoms: Pain ( specify Location) History: See Comments Comments: evaluate for FX Exam: KNEE RIGHT 1 OR 2 [facility] KNEE RIGHT 1 OR 2 VWS [...] report. Electronically signed: Boris Jara. Transcribed by: [id number], User Resident: NITHIN GARAY Electronically Signed by: BORIS JARA @ 04/22/2021 03:09 AM I personally read this/these film(s) with this resident Normal [facility] Comment on above: Order Comment: No: D o not add to previous draw LDH BLOODon 04-22-2021 LDH 232 Units/L Normal 140-271 The [facility] Comment on above: Order Comment: No: D o not add to previous draw Performed By: #### 8 4044, 80622, 40560, 53356, 02463, 77815 ####[facility] [address] LIVER BATTERYon 04-22-2021 Albumin [Mass/Vol] 3.9 g/dL Normal 3.5-5.7 [facility] Comment on above: Order Comment: No: D o not add to previous draw Performed By: #### 5 7307, 58191 #### [facility] [address] [place] [address], [facility] ALKALINE PHOSPH 74 IU/L Normal 34-104 [facility] Comment on above: Order Comment: No: D o not add to previous draw Performed By: #### 5 7307, 75746 #### [facility] [address] [place] [address], [place] ALT [Catalytic activity/Vol] 9 U/L Normal 7-52 [facility] Comment on above: Order Comment: No: D o not add to previous draw Performed By: #### 5 7307, 40996 #### [facility] [address] [place] [address], [place] AST [Catalytic activity/Vol] 19 U/L Normal 13-39 [facility] Comment on above: Order Comment: No: D o not add to previous draw Performed By: #### 5 7307, 24967 #### [facility] [address] [place] [address], [place] Bilirubin [Mass/Vol] 0.5 mg/dL Normal 0.3-1.0 [facility] Comment on above: Order Comment: No: D o not add to previous draw Performed By: #### 5 7307, 22276 #### [facility] [address] [place] [address], [place] Bilirubin.direct [Mass/Vol] 0.1 mg/dL Normal 0.0-0.2 [facility] Comment on above: Order Comment: No: D o not add to previous draw Performed By: #### 5 7307, 11199 #### [facility] [address] [place] [address], [place] Protein [Mass/Vol] 6.5 g/dL Normal 6.0-8.3 The [facility] Comment on above: Order Comment: No: D o not add to previous draw Performed By: #### 5 7307, 74011 #### [facility] [address] [place] [address], [place] MAGNESIUM BLOODon 04-22-2021 Magnesium [Mass/Vol] 2.0 mg/dL Normal 1.9-2.7 [facility] Comment on above: Order Comment: No: D o not add to previous draw Performed By: #### 4 1000, 94623, 18460, 66547 ####[facility] [place] [address], [facility] PERIPHERAL SMEARon 1 Nucleated RBC/100 WBC (Bld) [Ratio] 0 % Normal 0-0 [facility] Comment on above: Order Comment: No: D o not add to previous draw Performed By: #### 5 7307, 24655 #### [facility] [address] [place] [address], [facility] OTHER PS1 Macrocytic anemia with no significant RBC morphology. Normal [facility] Comment on above: Order Comment: No: D o not add to previous draw Performed By: #### 5 73, 08136 #### [facility] [address] [place] [address], [facility] OTHER PS2 Check serum B12 and folate. Normal [facility] Comment on above: Order Comment: No: D o not add to previous draw Performed By: #### 5 73, 20571 #### [facility] [address] [place] [address], [facility] OTHER PS3 Otherwise unremarkable leukocytes and platelets. Normal [facility] Comment on above: Order Comment: No: D o not add to previous draw Performed By: #### 5 7307, 63284 #### [facility] [address] [place] [address], [facility] OTHER PS4 Normal [facility] Comment on above: Order Comment: No: D o not add to previous draw Result Comment: Chec ked by Mayra Encinas M.D. Performed By: #### 5 7307, 87998 #### [facility] [address] [place] [address], [facility] PHOSPHORUS BLOODon 1 Phosphate [Mass/Vol] 3.4 mg/dL Normal 2.5-5.0 [facility] Comment on above: Order Comment: No: D o not add to previous draw Performed By: #### 5 7307, 02092 #### [facility] [address] PROTHROMBIN TIMEon 1 INR Coag (PPP) [Relative time] 1.01 {INR} Normal 0.91-1.16 [facility] Comment [...] CHEST 1995;[id number]. Performed By: #### 5 7307, 66352 #### [facility] [address] [facility] PT Coag (PPP) [Time] 13.3 s Normal 12.3-14.8 [facility] Comment on above: Order Comment: No: D o not add to previous draw Result Comment: ALL RESULTS MUST BE INTERPRETED WITH RESPECT TO BLOOD DRAWING ARTIFACT OR DILUTION ERROR OF ANTICOAGULANT AT THE TIME OF SAMPLING. Performed By: #### 5 7307, 77553 #### [facility] [address] RETICULOCYTE PANELon 021 ABSOLUTE RETICULOCYTE 0.0711 10*6/uL Normal 0.02 50-0.10 00 [facility] Comment on above: Order Comment: No: D o not add to previous draw Performed By: #### 5 7307, 90128 #### [facility] [address] [place] [address], [facility] IMMATURE RETICULOCYTE FRACTION 12.8 % Normal 2.0-16.0 [facility] Comment on above: Order Comment: No: D o not add to previous draw Performed By: #### 5 7307, 37010 #### [facility] [address] [place] [address], [facility] RETIC COUNT 2.37 % High 0.50-1.80 The [facility] Comment on above: Order Comment: No: D o not add to previous draw Performed By: #### 5 7307, 66814 #### [facility] [address] [place] [address], [facility] RETICULOCYTE HEMOGLOBIN 37.5 pg High 28.0-36.0 T [facility] Comment on above: Order Comment: No: D o not add to previous draw Performed By: #### 5 [id number] #### [facility] [address] [place] [address], [facility] TIBC- INCLUDES IRONon 2020 FE SATURATION 16 % Low 20-50 The [facility] Comment on above: Order Comment: No: D o not add to previous draw Performed By: #### 8 [id number], 87884, 29250, 65981, 07266, 92138 ####[facility] [place] [address], [facility] Iron [Mass/Vol] 54 ug/dL Normal 50-212 The [facility] Comment on above: Order Comment: No: D o not add to previous draw Performed By: #### 8 4044, 57905, 35712, 73253, 72465, 04283 ####[facility] [place] [address], [facility] TIBC 332 mcg/dL Normal 250-450 The [facility] Comment on above: Order Comment: No: D o not add to previous draw Performed By: #### 8 [id number], 40242, 07320, 80736, 63926, 13901 ####[facility] UIBC 278 mcg/dL Normal 155-355 The [facility] Comment on above: Order Comment: No: D o not add to previous draw Performed By: #### 8 4044, 92425, 02865, 52372, 21730, 08033 ####[facility] TSH3 WITH REFLEX FT4on 04-22 TSH 3RD GENERATION 1.72 uIU/mL Normal 0.34-5.60 The [facility] Comment on above: Performed By: #### 8 4044, 91812, 95714, 64522, 93266, 38404 ####[facility] VITAMIN B12on 04-22-2021 Cobalamin (Vitamin B12) [Mass/Vol] 771 pg/mL Normal 180-914 The [facility] Comment on above: Order Comment: No: D o not add to previous drawPt using restroom Result Comment: REFE RENCE RANGES: 180-914 pg/mL Normal 145-179 pg/mL Indeterminate <145 pg/mL Deficient Performed By: #### 8 [id number], 39862, 93464, 28658, 62682, 68087 ####[facility] Vital Signs Date Time Vital Sign Value Performing Clinician Facility 02-05-2025 12:36-0400 Body height 165.[address] Mehta MD Work Phone: [facility] 02-05-2025 12:36-0400 Body mass index (BMI) [Ratio] 40.7 kg/m2 Ave Mehta MD Work Phone: [facility] 02-05-2025 12:36-0400 Body weight 111.[address] Mehta MD Work Phone: [facility] 02-05-2025 12:36-0400 Diastolic blood pressure 78 mm[Hg] Ave Mehta MD Work Phone: [facility] 02-05-2025 12:36-0400 Heart rate 76 /min Ave Mehta MD Work Phone: [facility] 02-05-2025 12:36-0400 Systolic blood pressure 126 mm[Hg] Ave Mehta MD Work Phone: [facility] 10-06-2021 14:00-0400 Body height 165.1 cm Gunnar Fernandez Other [employer] [facility] [employer] Other 10-06-2021 14:00-0400 Body mass index (BMI) [Ratio] 40.77 kg/m2 Gunnar Fernandez Other [facility] Other 10-06-2021 14:00-0400 Body weight 111.13 kg Gunnar Rebecca Other [employer] Other Encounters Encounter Date Encounter Type Care Provider Facility Start: 02-09-2025 End: 02-09-2025 Patient encounter procedure Leonie Weaver MD -[facility] Work Phone: Start: 02-09-2025 End: 02-09-[address] Mehta MD Work Phone: [facility] Work Phone: Start: 02-05-2025 End: 02-05-[address] Mehta MD Work Phone: [facility] Work Phone: Start: 02-05-2025 End: 02-05-2025 Patient encounter procedure Kristen White DO -[facility] Work Phone: Start: 01-13-2025 End: 01-15-2025 Evaluation and management of inpatient Jarrod Mahajan Facility:[facility] Start: 01-13-2025 Emergency department patient visit Facility:[facility] Start: 01-06-2025 ambulatory [facility] Start: 12-31-2024 End: 12-31-2024 ambulatory [facility] Start: 10-21-2024 ambulatory [facility] Start: 10-04-2024 ambulatory [facility] Start: 07-31-2024 End: 07-31-[address] Mehta MD Work Phone: [facility] [address] Work Phone: Start: 07-31-2024 End: 07-31-[address] Mehta MD Work Phone: [facility] Work Phone: Start: 05-21-2024 End: 05-21-2024 ambulatory [facility] Start: 03-20-2023 End: 03-21-2023 ambulatory Ирина Gibson [...] Start: 09-02-2022 End: 09-03-2022 ambulatory LEÓN Tejada [facility] Facility:H1 Start: 08-08-2022 End: 08-09-[address] MEHTA . Facility:H1 Start: 07-18-2022 End: 07-19-2022 ambulatory LEÓN Tejada [facility] Facility:H1 Start: 06-30-2022 End: 07-01-2022 ambulatory [...] Start: 04-08-2022 End: 04-09-2022 ambulatory LEÓN Mallory [facility] Facility:H1 Start: 03-30-2022 End: 03-30-2022 ambulatory Rancho Chamorro Other [facility] Other Start: 03-30-2022 Telephone encounter [facility] [place] Start: 03-28-2022 End: 03-29-[address] MEHTA . Facility:H1 Start: 03-27-[address] MEHTA . Facili ty:H1 Start: 03-24-2022 Office outpatient vi sit 25 minutes Rancho Chamorro [facility] [place] Start: 03-24-2022 End: 04-03-2022 ambulatory UNKNOWN PROVIDER [facility] Other Start: 03-16-2022 End: 03-16-2022 ambulatory Rancho Chamorro Other [facility] Other Start: 03-16-2022 Telephone encounter Rancho BAKER G [facility] Start: 03-11-2022 End: 03-12-2022 ambulatory LEÓN Tejada [facility] Facility:H1 Start: 02-18-2022 End: 02-19-2022 ambulatory [facility] Facility:H1 Start: 02-11-2022 End: 02-12-[address] MEHTA . Facility:H1 Start: 01-28-2022 End: 01-29-2022 ambulatory LEÓN Tejada [facility] Facility:H1 Start: 01-11-2022 End: 01-12-[address] MEHTA . Facility:H1 Start: 01-04-2022 End: 01-05-2022 ambulatory LEÓN Tejada [facility] Facility:H1 Start: 12-23-2021 End: 12-23-2021 ambulatory Rancho Chamorro Other [facility] Other Start: 12-23-2021 Office outpatient vi sit 25 minutes Rancho Chamorro [facility] [place] Start: 12-20-2021 End: 12-21-2021 ambulatory LEÓN Tejada [facility] Facility:H1 Start: 12-13-2021 End: 12-14-2021 Evaluation and management of inpatient DR AVE MEHTA . Facility:H1 Start: 12-07-2021 Encounter for preprocedural cardiovascular examination [facility] Start: 12-06-2021 End: 12-06-2021 ambulatory LEÓN Tejada [facility] Facility:H1 Start: 12-05-2021 End: 12-05-[address] MEHTA . Facility:H1 Start: 12-02-2021 End: 12-03-2021 ambulatory [facility] Mallory [facility] Facility:H1 Start: 12-02-2021 End: 12-03-2021 Encounter for preprocedural cardiovascular examination [facility] Facility:H1 Start: 11-30-2021 End: 12-01-2021 ambulatory [facility] Facility:H1 Start: 11-29-2021 End: 11-29-2021 ambulatory MIRNA PARSONS . Facility:H1 Start: 11-17-2021 End: 11-17-2021 ambulatory Rancho Chamorro Other [facility] Other Start: 11-17-2021 Office outpatient vi sit 15 minutes Emilie Perez [facility] Start: 11-17-2021 Telephone encounter [facility] BAKER [facility] [place] Start: 11-04-2021 End: 11-04-2021 ambulatory Rancho Chamorro Other [facility] Other Start: 11-04-2021 Telephone encounter Rancho BAKER G [facility] Start: 11-03-2021 (Procedure) Short Rancho Chamorro [facility] Start: 11-03-2021 End: 11-03-2021 ambulatory Rancho Chamorro Other [facility] Other Start: 11-03-2021 Office outpatient vi sit 25 minutes Emilie Perez [facility] Start: 10-28-2021 End: 10-28-2021 ambulatory Rancho Chamorro Other [facility] Other Start: 10-28-2021 Office outpatient vi sit 25 minutes [facility] [place] Start: 10-07-2021 End: 10-07-2021 ambulatory Gunnar Fernandez Other [facility] Other Start: 10-07-2021 Telephone encounter Gunnar BAKER G [facility] Start: 10-06-2021 End: 10-06-2021 ambulatory Gunnar Fernandez Other [facility] Other Start: 10-06-2021 Office outpatient vi sit 15 minutes Gunnar Fernandez [facility] Start: 09-08-2021 End: 09-08-2021 ambulatory Gunnar Fernandez Other [facility] Other Start: 09-08-2021 Office outpatient vi sit 15 minutes Gunnar Fernandez [facility] Start: 04-22-2021 End: 04-29-2021 Evaluation and management of inpatient ROBERTA DANE Facility:[facility] Procedures Date Procedure Procedure Detail Performing Clinician Start: 12-12-2021 Transfusion of Nonau tologous Red Blood Cells into Peripheral Vein, Percutaneous Approach DR AVE MEHTA . Plan of Treatment Date Care Activity Detail Author Start: 02-09-2025 Urine culture [facility] Start: 02-09-2025 Bacteria identified in Urine by Culture Urine Culture [facility] Start: 07-31-2024 Aldolase measurement [facility] Start: 07-31-2024 Hemolytic complement CH50 level [facility] Start: 07-31-2024 Hepatitis B core ant ibody measurement [facility] Start: 07-31-2024 [facility] Angiotensin converti ng enzyme [Enzymatic activity/volume] in Serum or Plasma [facility] Chromatin Ab [Units/ volume] in Serum or Plasma [facility] Complement C3 [Mass/ volume] in Serum or Plasma [facility] Complement C4 [Mass/ volume] in Serum or Plasma [facility] Hepatitis B virus hernandez rface Ab [Presence] in Serum [facility] Hepatitis B virus hernandez rface Ag [Presence] in Serum or Plasma by Immunoassay [facility] Hepatitis C virus Ig G Ab [Presence] in Serum or Plasma by Immunoassay [facility] Homogenous nuclear A b pattern [Titer] in Serum [facility] Nuclear Ab [Titer] in Serum [facility] Reagin Ab [Presence] in Serum by RPR [facility] Thyroglobulin Ab [Units/volume] in Serum or Plasma [facility] Thyroperoxidase Ab [Units/volume] in Serum or Plasma [facility] Immunizations Immunization Date Immunization Notes Care Provider Fa cility 07-13-2020 COVID-19 mRNA Comirnaty (Pfizer) Ave Mehta MD Work Phone: [facility] 06-19-2020 COVID-19 Sarah Heredia (Pfizer) Ave Mehta MD Work Phone: [facility] Payers Date Payer Category Payer Medicare [id number] 2025 Unknown [id number] 2024 Self-pay 2023 Medicaid [id number] 2022 Medicare 2022 Unknown 2002 Medicare [id number] 1959 Medicare [id number] 1959 Self-pay [id number] 1959 Unknown [id number] 1948 Unknown [id number] 2.16.8 40.1.423347.3.579.2.647 1948 Unknown [id number] 2.16. 840.1.523802.3.579.2.732 1948 Unknown [id number] 2.16.84 0.1.838973.3.579.2.593 1948 Unknown [id number] 2.16.84 0.1.082251.3.579.2.593 1948 Unknown [id number] 2.16.84 0.1.882878.3.579.2.593 1948 Unknown [id number] 2.16.84 0.1.588463.3.579.2.593 1948 Unknown [id number] 2.16.84 0.1.031282.3.579.2.593 1948 Unknown [id number] 2.16.84 0.1.209924.3.579.2.593 1948 Unknown [id number] 2.16.84 0.1.351854.3.579.2.593 1948 Unknown [id number] 2.16.84 0.1.177198.3.579.2.593 1948 Unknown [id number] 2.16.84 0.1.299283.3.579.2.593 1948 Unknown [id number] 2.16.84 0.1.048442.3.579.2.593 1948 Unknown [id number] 2.16.84 0.1.423384.3.579.2.593 1948 Unknown [id number] 2.16.84 0.1.569970.3.579.2.593 1948 Unknown [id number] 2.16.84 0.1.787401.3.579.2.593 1948 Unknown [id number] 2.16.84 0.1.717321.3.579.2.593 1948 Unknown [id number] 2.16.84 0.1.576998.3.579.2.593 1948 Unknown [id number] 2.16.84 0.1.681648.3.579.2.593 1948 Unknown [id number] 2.16.84 0.1.775101.3.579.2.593 1948 Unknown [id number] 2.16.84 0.1.600867.3.579.2.593 1948 Unknown [id number] 2.16.84 0.1.609966.3.579.2.593 1948 Unknown [id number] 2.16.84 0.1.530499.3.579.2.593 1948 Unknown [id number] 2.16.84 0.1.762206.3.579.2.593 1948 Unknown [id number] 2.16.84 0.1.461795.3.579.2.593 1948 Unknown [id number] 2.16.84 0.1.564857.3.579.2.593 1948 Unknown [id number] 2.16.84 0.1.592653.3.579.2.593 1948 Unknown [id number] 2.16.84 0.1.155146.3.579.2.593 1948 Unknown [id number] 2.16.84 0.1.520327.3.579.2.593 1948 Unknown [id number] 2.16.84 0.1.630124.3.579.2.593 1948 Unknown [id number] 2.16.84 0.1.041798.3.579.2.593 1948 Unknown [id number] 2.16. 840.1.752819.3.579.2.196 1948 Unknown [id number] 2.16. 840.1.890416.3.579.2.196 1948 Unknown [id number] 2.16. 840.1.959823.3.579.2.196 1948 Unknown [id number] 2.16. 840.1.348460.3.579.2.196 1948 Unknown [id number] 2.16.8 40.1.936351.3.579.2.727 1948 Unknown [id number] 2.16.8 40.1.533162.3.579.2.727 1948 Unknown [id number] 2.16.8 40.1.442243.3.579.2.727 1948 Unknown [id number] 2.16.8 40.1.477546.3.579.2.727 1948 Unknown [id number] 2.16.8 40.1.294737.3.579.2.727 1948 Unknown [id number] 2.16.8 40.1.464866.3.579.2.727 Unknown [id number] 2.16.84 0.1.932028.3.579.2.593 Unknown [id number] 2.16.8 40.1.032836.3.579.2.531 Unknown [id number] 2.16.8 40.1.407891.3.579.2.531 Social History Date Type Detail Facility Sex Assigned At [facility] Other Start: 11-07-2021 End: 11-07-2021 Tobacco smoking status NHIS Never smoked tobacco (finding) [facility] Start: 08-01-2024 Sex Female (finding) [facility] Start: 1950 Sex Assigned At Female F [facility] Clinical Notes 04-29-2021 to 02-05-2025 Note Date & Type Note Facility 02-05-2025 Evaluation note Diagnosis Onset Date Resolution Debility acute February 05, 025 12:30pm Generalized weakness acute Augu 2024 12:30pm Hallucinations acute January 12:30pm Metabolic encephalopathy acute February 05, 2025 12:30pm Obesity acute February 05 12:30pm 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 Performing Locations R1: This test was performed at: [facility], [address] [place] [address], [address] [place] [address], VbfqzjWadsworth-Rittman HospitalComment on above:Performed By: #### [id number] #### [facility] [address] [place] [address] [phone] NoteMicrobiology PROCEDURE: Blood Culture Charcoal [R1] SOURCE: Blood BODY SITE: Wrist R COLLECTED DATE/TIME: 01/13/2025 15:02 EDT RECEIVED DATE/TIME: 01/13/2025 15:10 EDT START DATE/TIME: 01/13/2025 15:10 EDT FREE TEXT SOURCE: Bobo Ashraf, Brittny Broussard M.D., Brittny Mejia FINAL REPORTS Final Report [] Verified Date/Time: 01/20/2025 15:55 EDT No growth at 7 days. Performing Locations R1: This test was performed at: [facility], [address] [place] [address], [address] , , IxxdslWadsworth-Rittman HospitalComment on above:Performed By: #### [id number] #### [facility] [address] [place] [address] [phone] NoteDischarge Summary Admission and Discharge Information Admit Date/Time:01/13/2025 15:12 Admitting Physician - Jarrod Mahajan III, DO Consulting Physician - Bhupinder OLIVER, Marino [facility] Wound, XXXX Admitting Diagnoses: Discharge Diagnoses 1. [...] vitamin D deficiency who was brought to [facility] on 01/13/2025 after being found unresponsive at [facility]. Stroke alert was called in the [...] discharge. Sepsis: Treated for recent pneumonia at [facility] possibly aspiration. Also has chronic lower extremity wounds. Met sepsis criteria with source being either lower extremity wounds and/or pneumonia. Started on Vanco, Zosyn, azithromycin. Vancomycin discontinued as nasal MRSA screening was negative. Patient's white blood cell count down trended. Patient was still on oxygen from her previous admission at [facility]. She completed 3 days of azithromycin IV [...] psychiatric thoughts. Tests Performe (more content not included)...[facility]ittman HospitalComment on above:Result Comment: Electronically Signed By: Jarrod Mahajan III, DO.sharan\Date and Time Signed: 01/15/25 11:03 [id number] NoteProgress Note-Physician Assessment/Plan ASSESSMENT: Reportedly unresponsive at the [facility]. Not sure what this means. I do [...] baseline. Waiting to go back to the [facility]. Review of Systems GEN: No fevers or [...] is alert. Attention mildly impaired. Oriented to [facility], January,. LANG: Speech is somewhat hypophonic, [...] Lymph Auto: 7.1 % Low (01/15/25 04:57:00) Fillmore Auto: 8.5 % (01/15/25 04:57:00) Eos Auto: 7 % (01/15/25 04:57:00) Basophil Auto: 0.7 % (01/15/25 04:57:00) Neutro Absolute: 9.4 E9/L High (01/15/25 04:57:00) Lymph Absolute: 0.9 E9/L Low (01/15/25 04:57:00) [place] Absolute: 1 E9/L (01/15/25 04:57:00) Eos Absolute: 0.9 E9/L High (01/15/25 04:57:00) Basophil Absolute: 0.1 E9/L (01/15/25 04:57:00) Glucose Lvl: 94 mg/dL (01/15/25 04:57:00) BUN: 23 mg/dL High ( (more content not included)...[facility]ittman HospitalComment on above:Result Comment: Electronically Signed By: [...] vitamin D deficiency who was brought to [facility] on 01/13/2025 after being found unresponsive at [facility]. Treated for recent pneumonia at [facility] possibly aspiration. Also has chronic lower extremity [...] eGFR Sbsq Hospital Care/Day Moderate 35 Minutes 46077 2. Pneumonia (J18.9: Pneumonia, unspecified organism) Treatment [...] She recently had an ASHLEY on recent [place] admission and had downtrended to 1.6. Will [...] EDT escitalopram, 10 mg (more content not included)...[facility] Comment on above:Result Comment: Electronically Signed By: Jarrod Mahajan III, DO\.br\Date and Time Signed: 01/14/25 16:48 [id number] Note Echocardiology Procedure Exam Date/Time Accession # Ordering Echo Transthoracic w/ 01/14/2025 11:49 EDT [id number] Jarrod Mahajan III, DO CPT code 79996 C8929 Reason for Exam (Echo Transthoracic w/ Contrast) Congestive Heart Failure Report [address] [address] Adult Echocardiogram Report Name: LINDA NASCIMENTO Study Date: 01/14/2025 11:05 AM BP: 144/96 mmHg Patient Location: [address] [place] [address] HR: 62 : 1950 Gender: Female Height: 65 in Age: 74 yrs Ethnicity: [facility] Weight: 287 lb Reason For Study: Congestive Heart Failure BSA: 2.3 m2 History: Pacemaker, AFIB, CAD, Sarcoidosis, CKD, Seizures, Retinal artery occlusion Ordering Physician: Jarrod Mahajan Performed By: Kami Ruiz, [facility] Interpretation Summary The left ventricle is normal [...] Quita Alvarado MD Transcribed by: MARYSE Technologist: [facility]08-04-2025 Note History and Physical Basic Information Admit [...] vitamin D deficiency who was brought to [facility] on 01/13/2025 after being found unresponsive at [facility]. Stroke alert was called in ER. On record review, patient recently treated for an aspiration pneumonia at [facility] and was seemingly still on outpatient oral [...] me that she chronically lives at this [facility]. She is pleasant and conversational. She [...] Lymph Auto: 5.2 % Low (01/13/25 13:19:00) [place] Auto: 2.2 % Low (01/13/25 13:19:00) Eos Auto: 0.4 % (01/13/25 13:19:00) Basophil Auto: 0.5 % (01/13/25 13:19:00) Neutro Absolute: 12.6 E9/L High (01/13/25 13:19:00) Lymph Absolute: 0.7 E9/L Low (01/13/25 13:19:00) Fillmore Absolute: 0.3 E9/L (01/13/25 13:19:00) Eos Absolute: [...] Lvl: 139 mmol/L (01/13/ (more content not included)...[facility] HospitalComment on above:Result Comment: Electronically Signed By: Jarrod Mahajan III, DO\.br\Date and Time Signed: 01/13/25 21:14 [id number] Note Progress Note - Pharmacy Indication: Empiric [...] Lymph Auto: 5.2 % Low (01/13/25 13:19:00) Fillmore Auto: 2.2 % Low (01/13/25 13:19:00) Eos Auto: 0.4 % (01/13/25 13:19:00) Basophil Auto: 0.5 % (01/13/25 13:19:00) Neutro Absolute: 12.6 E9/L High (01/13/25 13:19:00) Lymph Absolute: 0.7 E9/L Low (01/13/25 13:19:00) Fillmore Absolute: 0.3 E9/L (01/13/25 13:19:00) Eos Absolute: [...] (01/13/25 14:18:00) UA Leuk Est: Negat (01/13/25 14:18:00)[facility]07-[facility] Note ID Electrophysiology Consult Note ID Cardiology [facility] Reason for visit: Afib 12/31/24 Patient is here today for a device check and a follow up appointment. Patient states her chest hurts due to fluid in her chest, patient states the nurse at the [place] told her she doesn't have pneumonia. Patient [...] with prior history of transferred from an [facility] to [facility] following a fall that she sustained. She was noted to be bradycardic and EKG at that time showed her to have bradycardia in the rate of 30s following admission to [facility] she was noted to have a [...] ANGIOGRAM W AND/OR WO IV CONTRAST 04/23/[address] [facility] [address] IMAGING CTA CHEST W IV CONTRAST 04/23/2022 CT CHEST ANGIOGRAM W AND/OR WO IV CONTRAST 04/23/[address] [facility] [address] IMAGING TONSILLECTO (more content not included)...[facility] 05-21-2024 NoteUT Electrophysiology Consult Note ID Cardiology [facility] Reason for visit: 05/21/24 Pt [...] being managed for her heart failure by Tracei Ambrocio. last echocardiogram done on 09/14/2022 reveals ejection fraction of 65% with RVSP of 35 mmHg Prior HPI: Linda Nascimento is a 73 y.o. year old with prior history of transferred from an [facility] to [facility] following a fall that she sustained. She was noted to be bradycardic and EKG at that time showed her to have bradycardia in the rate of 30s following admission to [facility] she was noted to have a [...] ANGIOGRAM W AND/OR WO IV CONTRAST 04/23/[address] [facility] [address] CHEST ANGIOGRAM W AND/OR WO IV CONTRAST 04/23/2022 CT CHEST ANGIOGRAM W AND/OR WO IV CONTRAST 04/23/[address] [facility] [address] IMAGING TONSILLECTOMY SH: Social Determinants [...] Intimate Partner Violence: Unkn (more content not included)...[facility]10-19-2022 Evaluation note* Encounter Date Diagnosis Assessment Notes Treatment Notes Treatment Clinical Notes Mar, Other spondylosis with radiculopathy, lumbar region (ICD-10 - M47.26) [facility] Other 10-13-2022 Evaluation note* Encounter Date Diagnosis [...] note writ ten by Summer Molina LPN, Civil Engineering Draftsperson. Edited and approved by Dr. Rancho Chamorro MD. [facility] Other 10-05-2022 Evaluation note* Encounter Date Diagnosis Assessment Notes Treatment Notes Treatment Clinical Notes Mar, Other low back pain (ICD-10 - M54.59) [facility] Other 07-14-2022 Evaluation note* Encounter Date Diagnosis [...] note writ ten by Mika Villalobos MA, [employer] Draftsperson. Edited and approved by Dr. Rancho Chamorro MD. [facility] Other 06-08-2022 Evaluation note* Encounter Date Diagnosis [...] note writ ten by Mika Villalobos MA, [employer] Engineering Draftsperson. Edited and approved by Dr. Rancho Chamorro MD. [facility] Other 06-08-2022 Evaluation note* Encounter Date Diagnosis [...] four weeks, case discussed with Dr. Diaz [facility] has been contacted and will consult wound care. [facility] Other 05-25-2022 Evaluation note* Encounter Date Diagnosis [...] for Keflex BID x 14 days and [place]. Patient and sister instructed to contact office with any signs of infection or significant changes [facility] Other 05-19-2022 Evaluation note* Encounter Date Diagnosis [...] note writ ten by Summer Molina LPN, Civil Engineering Draftsperson. Edited and approved by Dr. Rancho Chamorro MD. [employer] Other 04-28-2022 Evaluation note* Encounter Date Diagnosis Assessment Notes Treatment Notes Treatment Clinical Notes Sep, Pacemaker (ICD-10 - Z95.0) [facility] Other 04-27-2022 Evaluation note* Encounter Date Diagnosis [...] spinal osteoarthritis complication status (ICD-10 - M47.816) [facility] Other 03-30-2022 Evaluation note* Encounter Date Diagnosis [...] D. To call with questions or concerns. [facility] Other 11-18-2021 NoteMR#: [id number] I [facility] Pt. Name: Linda Nascimento Admitted: [...] The patient was subsequently transferred to the [facility] for higher level of care. Cardiology [...] Lozada MD Date Trans: 04/29/2021 12:17 P/mmo [id number] cc: Leslie Arroyo M.D. [address] [place] [address]. [employer] [address] [place] [address] M.D[address], [facility] [id number] Hospitals Parma Medical CenterEvaluation noteNo InformationNortEncompass Health Rehabilitation Hospital of [facility] [employer] Other Evaluation noteNo assessment information available [facility] Work Phone: Evaluation note* Diagnosis Onset Date Resolution Status Admit Date Stroke-like symptoms noneactive Augu 2024 12:30pm [facility] Work Phone: History general Narrative - Reported* Type Description Date Medical History bipolar Medical History Arthritis Medical History high blood pressure Medical History chronic depression Medical History iron deficiency anemia Medical History kidney disease Medical History hyperlipidemia Medical History anxiety Medical History vitamin D deficiency Surgical History tonsillectomy Surgical History laparoscopy Hospitalization History depression [facility] [employer] Other Reason for referral (narrative)No reason for referral information availableThe [facility] Work Phone: Summary Purpose Family History No [...] DATE CREATED AUTHOR 05/30/2021 [facility] DATE CREATED AUTHOR AUTHOR'S ORGANIZ ATION 04/05/2022 [facility] DATE CREATED AUTHOR AUTHOR'S ORGANIZ ATION 10/19/2022 [facility] DATE CREATED AUTHOR AUTHOR'S ORGANIZ ATION 03/27/2023 [facility] DATE CREATED AUTHOR AUTHOR'S ORGANIZ ATION 05/10/2024 [facility] DATE CREATED AUTHOR AUTHOR'S ORGANIZ ATION 01/15/2025 [facility] DATE CREATED AUTHOR AUTHOR'S ORGANIZ ATION 01/16/2025 [facility] DATE CREATED AUTHOR AUTHOR'S ORGANIZ ATION 01/17/2025 [facility] DATE CREATED AUTHOR AUTHOR'S ORGANIZ ATION 01/18/2025 [facility] DATE CREATED AUTHOR AUTHOR'S ORGANIZ ATION 01/19/2025 [facility] DATE CREATED AUTHOR AUTHOR'S ORGANIZ ATION 01/21/2025 [facility] DATE CREATED AUTHOR AUTHOR'S ORGANIZ ATION 02/13/2025 [facility] REASON FOR VISIT (unrecogniz ed [...] BE BASED ON THE PRIMARY CLINICAL RECORDS. [employer] [facility]. provides no warranty or guarantee of the accuracy or completeness of information in this document.
== END 2025-02-21 21:27 | disposition expired ==
PROVIDERS: Emergency Provider Internal Medicine; PCP Family Medicine
DX: I46.9 Cardiac arrest, cause unspecified (principal); I13.0 Hypertensive heart and chronic kidney disease with heart failure and stage 1 through stage 4 chronic kidney disease, or unspecified chronic kidney disease; M62.50 Muscle wasting and atrophy, not elsewhere classified, unspecified site; R53.1 Weakness; N18.9 Chronic kidney disease, unspecified; I50.9 Heart failure, unspecified; Z79.899 Other long term (current) drug therapy; Z86.16 Personal history of COVID-19
CPT/HCPCS: 36415; 70450; 71045; 80053; 84484; 85007; 85027; 87086; 92950; 93005; 96374; 99285; J0169; J0360